=== PATIENT | male | born 1980 | race Caucasian/White ===

== ENCOUNTER 2020-02-24 23:19 | Emergency (ER) | payer OTHER, SELFPAY ==
--- NOTE | ~2020-02-24 | CT_ITS ---
EXAMINATION: CT abdomen pelvis w con DATE: 02/25/2020 00:34 INDICATION: Abdominal pain. Pancreatitis. TECHNIQUE: Computed tomography (CT) of the abdomen and pelvis was performed with 100 mL Omnipaque 350 intravenous contrast. Automated exposure control and iterative reconstruction technique were employe d. The dose-length product was 325.95 mGy-cm. COMPARISON: CT abdomen and pelvis 03/13/2019 FINDINGS: The visualized portions of the lung bases demonstrate minimal atelectasis. No pleural effus ion. The heart size is normal. No pericardial effusion. Pneumobilia is noted, likely secondary to sph incterotomy. There are changes of cholecystectomy. The spleen, pancreas, adrenal glands, and kidneys are normal. There are small bilateral inguinal hernias containing fat. There is a small umbilical her rena containing fat. There are no dilated loops of bowel. The appendix is normal. There are no patholo gically enlarged lymph nodes. There is no free intraperitoneal fluid. There is mild thoracolumbar spo ndylosis. IMPRESSION: 1. Normal pancreas. 2. Small umbilical and inguinal hernias containing fat. Reviewed, dictated and finalized at location A.
[2020-02-24 23:30] VITALS: BP 160/101; PULSE 99; RESP 14; TEMP 36.8; O2SAT 100
--- NOTE | 2020-02-24 23:39 | ED.ABDPAIN ---
HPI - Abdominal Pain General Chief Complaint: Abdominal Pain Stated Complaint: abd pain Time Seen by Provider: 02/24/20 23:39 Source: patient Mode of arrival: ambulatory Limitations: no limitations History of Present Illness HPI narrative: Patient is a 39-year-old male with a history of pancreatitis, recent small bowel obstruction hospitalized at [facility] in [place], who presents for evaluation of abdominal pain, nausea and vomiting. Patient states he had dinner of chicken and rice earlier this evening around 5 PM, couple of hours later developed some upper abdominal pain in the left upper quadrant, and associated nausea and vomiting. Patient states he has had numerous episodes of nonbloody, nonbilious emesis. He reports aching, cramping upper abdominal pain. He denies radiation of the pain to his flanks. He denies any chest pain or shortness of breath. No fever or chills. He denies abdominal distention. Patient follows with Dr. MATHUR at [facility] for gastroenterology, states he would want to be kept at this facility if he needed hospitalization and does not wish to be transferred. Related Data Allergies Allergy/AdvReac Type Severity Reaction Status Date / Time doxycycline Allergy Unknown Unknown Verified 02/24/20 23:44 metoclopramide Allergy Unknown Unknown Verified 02/24/20 23:44 sulfamethoxazole Allergy Unknown Unknown Verified 02/24/20 23:44 trimethoprim Allergy Unknown Unknown Verified 02/24/20 23:44 Review of Systems Review of Systems: Narrative: CONSTITUTIONAL: Denies fever, chills ENT: Denies rhinorrhea, congestion, sore throat, or otalgia. CARDIOVASCULAR: Denies chest pain, palpitations, or edema. RESPIRATORY: Denies cough or dyspnea. GASTROINTESTINAL: Reports abdominal pain, nausea and vomiting GENITOURINARY: Denies dysuria or hematuria. SKIN: Denies rash or itching. MUSCULOSKELETAL: Denies back pain, joint pain, or myalgia. NEUROLOGIC: Denies headache, numbness, or weakness. [facility] Past Medical History Medical History Anxiety Colitis Cyclic vomiting syndrome Depression Gastroenteritis GERD (gastroesophageal reflux disease) Hypertension IBD (inflammatory bowel disease) Kidney stones Pancreatitis Surgical History Surgical History (Updated 03/13/19 @ 15:06 by Rajani Petersen) Hx of cholecystectomy Social History Social History Smoking packs per day: 0.5 Smoking cigarettes per day: 10.0 Smoking status: Current every day smoker Tobacco type: cigarettes Alcohol intake: never Substance use type: marijuana Gender identity (if verbalized by the patient): Male Exam Narrative: Exam Narrative: GENERAL: Awake, alert, conversant HEAD: Normocephalic, atraumatic. EYES: PERRLA and EOMI. ENT: Nares clear, no rhinorrhea or epistaxis. Mucous membranes moist. NECK: Supple. CHEST: No respiratory distress, breathing even and non labored HEART: Regular rate, sinus rhythm ABDOMEN:Non distended, left upper quadrant tenderness, no rebound, no guarding, nonrigid EXTREMITIES: Normal range of motion. No edema. SKIN: Warm, dry, no rash. NEURO:No focal deficits. Alert and oriented x3 Course Vital Signs Vital signs: Vital Signs Temperature 36.8 C 02/24/20 23:30 Pulse Rate 99 02/24/20 23:30 Respiratory Rate 14 02/24/20 23:30 Blood Pressure 160/101 H 02/24/20 23:30 Pulse Oximetry 100 02/24/20 23:30 Temperature 36.8 C 02/24/20 23:30 Pulse Rate 97 02/25/20 00:56 Respiratory Rate 18 02/25/20 00:56 Blood Pressure 135/89 02/25/20 00:56 Pulse Oximetry 99 02/25/20 00:56 MDM - Abdominal Pain MDM Narrative Medical decision making narrative: Patient presented for evaluation of left upper quadrant abdominal pain after eating. At the time of assessment, ABCs are intact and vital signs are stable. Patient with left upper quadrant tenderness
[2020-02-24] MEDS: SODIUM CHLORIDE 0.9% IV 1,000 ML 999 ML IV CONT (23:47)
[2020-02-24] MEDS: ONDANSETRON INJ 4 MG/2 ML VIAL IV PUSH (23:47)
[2020-02-24] MEDS: MORPHINE SULFATE (*CRX) 4 MG/ML INJ IV PUSH (23:47)
[2020-02-24 23:50] LABS: Basophils Absolute Auto 0.1 K/mm3 (0.0-0.1); Basophils Percent Auto 0.3 % (0.2-1.2); Eosinophils Percent Auto 0.1 % (0-4.4); Hematocrit 41.8 % (42.0-52.0); Hemoglobin 14.5 g/dL (14.0-18.0); Immature Granulocyte Absolute 0.08 K/mm3 (0.00-0.031); Immature Granulocyte Percent A 0.5 % (0-0.5); Lymphocytes Absolute Auto 1.71 K/mm3 (0.9-3.2); Lymphocytes Percent Auto 10.1 % (18.3-44.2); Mean Corpuscular HGB Conc 34.7 g/dl (32-36); Mean Corpuscular Hemoglobin 31.6 pg (26-34); Mean Corpuscular Volume 91.1 fl (80-100); Mean Platelet Volume 9.8 fl (7.4-10.4); Monocytes Absolute Auto 0.8 K/mm3 (0.1-0.6); Monocytes Percent Auto 4.9 % (2.6-8.5); Neutrophils Absolute Auto 14.2 K/mm3 (1.3-6.7); Neutrophils Percent Auto 84.1 % (45.5-73.1); Platelet Count Result 332 k/mm3 (150-375); Red Blood Count 4.59 M/mm3 (4.6-6.20); Red Cell Distribution Width 13.3 % (11.5-14.5); White Blood Count 16.9 K/mm3 (4.5-10.0)
[2020-02-25 00:06] LABS: Alanine Aminotransferase 17 U/L (4-50); Albumin Level 4.5 g/dL (3.5-5.1); Alkaline Phosphatase 91 U/L (38-126); Anion Gap 9 mmol/L (8-16); Aspartate Amino Transferase 23 U/L (17-59); Bilirubin,Total 0.5 mg/dL (0.2-1.3); Blood Urea Nitrogen 5 mg/dL (9-20); Calcium 9.4 mg/dL (8.4-10.2); Carbon Dioxide 29 mmol/L (22-30); Chloride 102 mmol/L (98-107); Estimated CRCL calculation 101 ml/min; Estimated Glomerular Filt Rate > 60; Glucose 118 mg/dL (75-110); Lipase 148 U/L (23-300); Potassium 4.1 mmol/L (3.4-5.0); Sodium 140 mmol/L (137-145)
[2020-02-25] MEDS: HYDROmorphone HCL INJ (*CRX) 1 MG/ML SYR 0.5 MG IV PUSH (00:53)
[2020-02-25 00:56] VITALS: BP 135/89; PULSE 97; RESP 18; O2SAT 99
[2020-02-25 01:07] LABS: Add Urine Microscopic? YES; Appearance Urine Cloudy (Clear); Bilirubin Urine Negative (Negative); Blood Urine Negative (Negative); Color Urine Yellow (Yellow); Glucose Urine UA Negative (Negative); Ketones Urine Negative (Negative); Leukocyte Esterase Ur Negative LEU/UL (Negative); Nitrate Urine Negative (Negative); Protein Urine Negative (Negative); RBC Urine 0-2 /hpf (0-2); Specific Grav Ur 1.025 (1.001-1.035); Urobilinogen Urine Negative mg/dL (<2.0); WBC Urine 0-3 /hpf
== END 2020-02-25 01:36 | disposition home or self-care (01) ==
PROVIDERS: Emergency Medicine; Emergency Provider Emergency Medicine
DX: K52.9 Noninfective gastroenteritis and colitis, unspecified (principal); K21.9 Gastro-esophageal reflux disease without esophagitis; I10 Essential (primary) hypertension; K58.9 Irritable bowel syndrome, unspecified; Z87.442 Personal history of urinary calculi; F17.210 Nicotine dependence, cigarettes, uncomplicated
CPT/HCPCS: 36415; 74177; 80053; 81001; 83690; 85025; 96361; 96374; 96375; 99284; J1170; J2270; J2405; J7030; Q9967

== ENCOUNTER 2020-02-27 11:57 | Emergency (ER) | payer OTHER, SELFPAY ==
[2020-02-27] VITALS (11 sets, daily range): BP systolic 124–172; BP diastolic 76–125; PULSE 70–86; RESP 7–21; TEMP 36.1–36.6; O2SAT 95–100
--- NOTE | ~2020-02-27 | CT_ITS ---
EXAMINATION: CT abdomen pelvis w con DATE: 02/27/2020 13:24 INDICATION: Epigastric and left upper quadrant abdominal pain. TECHNIQUE: Computed tomography (CT) of the abdomen and pelvis was performed with 100 mL Omnipaque 350 intravenous contrast. Automated exposure control and iterative reconstruction technique were employe d. The dose-length product was 362.76 mGy-cm. COMPARISON: CT abdomen and pelvis 02/25/2020 FINDINGS: The visualized portions of the lung bases demonstrate mild atelectasis. No pleural effusion . The heart size is normal. No pericardial effusion. The liver and spleen are normal. There are peñaloza es of cholecystectomy. The pancreas, adrenal glands, and kidneys are normal. There is a right inguina l hernia containing fat. There are no dilated loops of bowel. The appendix is normal. There are no pa thologically enlarged lymph nodes. There is no free intraperitoneal fluid. There is mild lumbar spond ylosis. IMPRESSION: 1. Right inguinal hernia containing fat. Reviewed, dictated and finalized at location A.
[2020-02-27 12:19] LABS: Basophils Percent Auto 0.3 % (0.2-1.2); Eosinophils Absolute Auto 0.1 K/mm3 (0-0.3); Eosinophils Percent Auto 1.1 % (0-4.4); Hematocrit 43.2 % (42.0-52.0); Hemoglobin 14.6 g/dL (14.0-18.0); Immature Granulocyte Absolute 0.05 K/mm3 (0.00-0.031); Immature Granulocyte Percent A 0.4 % (0-0.5); Lymphocytes Absolute Auto 2.25 K/mm3 (0.9-3.2); Lymphocytes Percent Auto 18.4 % (18.3-44.2); Mean Corpuscular HGB Conc 33.8 g/dl (32-36); Mean Corpuscular Hemoglobin 31.3 pg (26-34); Mean Corpuscular Volume 92.7 fl (80-100); Mean Platelet Volume 9.9 fl (7.4-10.4); Monocytes Percent Auto 8.3 % (2.6-8.5); Neutrophils Absolute Auto 8.7 K/mm3 (1.3-6.7); Neutrophils Percent Auto 71.5 % (45.5-73.1); Platelet Count Result 319 k/mm3 (150-375); Red Blood Count 4.66 M/mm3 (4.6-6.20); Red Cell Distribution Width 13.4 % (11.5-14.5); White Blood Count 12.2 K/mm3 (4.5-10.0)
--- NOTE | 2020-02-27 12:22 | ED.ABDPAIN ---
HPI - Abdominal Pain General Chief Complaint: Abdominal Pain Stated Complaint: abd pain, vomiting Time Seen by Provider: 02/27/20 12:03 History of Present Illness HPI narrative: Patient is a 39-year-old male who presents to the ER with abdominal pain. Was having similar discomfort 2 days ago, yesterday was feeling better and ate some pizza. Spring woke up with upper abdominal pain without radiation. Sharp in nature. Associated with one episode diarrhea and 5 episodes of vomiting. Patient has history of Crohn's. She takes omeprazole. No fevers or chills or sweats. No alleviating factors. Related Data Home Medications Medication Instructions Recorded Confirmed omeprazole 40 mg PO DAILY 02/27/20 Allergies Allergy/AdvReac Type Severity Reaction Status Date / Time doxycycline Allergy Unknown Unknown Verified 02/24/20 23:44 metoclopramide Allergy Unknown Unknown Verified 02/24/20 23:44 sulfamethoxazole Allergy Unknown Unknown Verified 02/24/20 23:44 trimethoprim Allergy Unknown Unknown Verified 02/24/20 23:44 Review of Systems Review of Systems: All systems reviewed & are unremarkable except as noted in HPI and below Constitutional: Constitutional: Denies chills, Denies fever(s) and Denies weakness ENT: Denies nasal congestion and Denies sore throat Cardiovascular: Cardiovascular: Denies chest pain and Denies radiating jaw, neck or arm pain Respiratory: Respiratory: Denies cough, Denies dyspnea and Denies wheezing Gastrointestinal: Gastrointestinal: Reports abdominal pain, Reports diarrhea, Reports nausea and Reports vomiting PMFSH Past Medical History Medical History Anxiety Colitis Cyclic vomiting syndrome Depression Gastroenteritis GERD (gastroesophageal reflux disease) Hypertension IBD (inflammatory bowel disease) Kidney stones Pancreatitis Surgical History Surgical History (Updated 03/13/19 @ 15:06 by Rajani Petersen) Hx of cholecystectomy Social History Social History Smoking packs per day: 0.5 Smoking cigarettes per day: 10.0 Smoking status: Current every day smoker Tobacco type: cigarettes Alcohol intake: never Substance use type: marijuana Gender identity (if verbalized by the patient): Male Exam Narrative: Exam Narrative: GENERAL: Uncomfortable-appearing, well-nourished, and in no acute distress. HEAD: Normocephalic, atraumatic. CHEST: Clear to auscultation. No respiratory distress. HEART: Regular rate and rhythm. Normal peripheral pulses. ABDOMEN: Soft, moderate tenderness to the left upper quadrant and epigastrium, nondistended. EXTREMITIES: Normal range of motion. No edema. SKIN: Warm, dry, no rash. NEURO: Alert and oriented x3. PSYCH: Normal mood and affect. Course Course Emergency Course: Patient informed results. Pain nausea improving with medications. Discharge home. Vital Signs Vital signs: Vital Signs Temperature 97.0 F L 02/27/20 12:05 Pulse Rate 86 02/27/20 12:05 Respiratory Rate 16 02/27/20 12:05 Blood Pressure 150/76 H 02/27/20 12:05 Pulse Oximetry 100 02/27/20 12:05 Temperature 97.0 F L 02/27/20 12:05 Pulse Rate 78 02/27/20 12:48 Respiratory Rate 11 L 02/27/20 12:48 Blood Pressure 172/115 H 02/27/20 12:48 Pulse Oximetry 98 02/27/20 12:48 MDM - Abdominal Pain Lab Data Result diagrams: 02/27/20 12:11 02/27/20 12:11 Labs: Lab Results 02/27/20 02/27/20 02/27/20 Range/Units 12:11 12:11 12:45 WBC 12.2 H (4.5-10.0) K/mm3 RBC 4.66 (4.6-6.20) M/mm3 Hgb 14.6 (14.0-18.0) g/dL Hct 43.2 (42.0-52.0) % MCV 92.7 (80-100) fl MCH 31.3 (26-34) pg MCHC 33.8 (32-36) g/dl RDW 13.4 (11.5-14.5) % Plt Count 319 (150-375) k/mm3 MPV 9.9 (7.4-10.4) fl Immature Gran % (Auto) 0.4 (0-0.5) % Neut % (Auto) 71.5 (45.5-73.1) % L
[2020-02-27] MEDS: MORPHINE SULFATE (*CRX) 4 MG/ML INJ IV PUSH (12:23)
[2020-02-27] MEDS: SODIUM CHLORIDE 0.9% IV 1,000 ML 999 ML IV CONT (12:23)
[2020-02-27] MEDS: ONDANSETRON INJ 4 MG/2 ML VIAL IV PUSH (12:23)
--- NOTE | 2020-02-27 12:23 | PC.NURSE ---
pt informed of need for ua, refusing straight cath, unable to pee at this time, states i feel really dehydrated i will try after i get the iv fluids in me.
[2020-02-27 12:32] LABS: Alanine Aminotransferase 17 U/L (4-50); Albumin Level 4.4 g/dL (3.5-5.1); Alkaline Phosphatase 82 U/L (38-126); Anion Gap 8 mmol/L (8-16); Aspartate Amino Transferase 21 U/L (17-59); Bilirubin,Total 0.7 mg/dL (0.2-1.3); Blood Urea Nitrogen 11 mg/dL (9-20); Calcium 9.7 mg/dL (8.4-10.2); Carbon Dioxide 30 mmol/L (22-30); Chloride 102 mmol/L (98-107); Estimated CRCL calculation 113 ml/min; Estimated Glomerular Filt Rate > 60; Glucose 147 mg/dL (75-110); Lipase 180 U/L (23-300); Potassium 4.1 mmol/L (3.4-5.0); Sodium 140 mmol/L (137-145)
[2020-02-27 13:07] LABS: Add Urine Microscopic? YES; Appearance Urine Turbid (Clear); Bacteria Urine Trace /hpf; Bilirubin Urine Negative (Negative); Blood Urine Negative (Negative); Color Urine Yellow (Yellow); Glucose Urine UA Negative (Negative); Ketones Urine Negative (Negative); Leukocyte Esterase Ur Negative LEU/UL (Negative); Mucus Urine Rare /lpf; Nitrate Urine Negative (Negative); Protein Urine Negative (Negative); RBC Urine 0-2 /hpf (0-2); Specific Grav Ur 1.013 (1.001-1.035); Urobilinogen Urine Negative mg/dL (<2.0)
[2020-02-27] MEDS: HYDROmorphone HCL INJ (*CRX) 1 MG/ML SYR IV PUSH (14:46)
== END 2020-02-27 15:57 | disposition home or self-care (01) ==
PROVIDERS: Emergency Provider Emergency Medicine
DX: K21.9 Gastro-esophageal reflux disease without esophagitis (principal); I10 Essential (primary) hypertension; K58.9 Irritable bowel syndrome, unspecified; Z87.442 Personal history of urinary calculi
CPT/HCPCS: 36415; 74177; 80053; 81001; 83690; 85025; 96361; 96374; 96375; 99284; J1170; J2270; J2405; J7030; Q9967

== ENCOUNTER 2020-02-29 16:42 | Emergency (ER) | payer OTHER, SELFPAY ==
[2020-02-29] VITALS (11 sets, daily range): BP systolic 117–167; BP diastolic 68–122; PULSE 68–91; RESP 12–20; TEMP 36.7; O2SAT 84–100
[2020-02-29 17:08] LABS: Basophils Absolute Auto 0.1 K/mm3 (0.0-0.1); Basophils Percent Auto 0.5 % (0.2-1.2); Eosinophils Absolute Auto 0.1 K/mm3 (0-0.3); Eosinophils Percent Auto 1.1 % (0-4.4); Hematocrit 42.2 % (42.0-52.0); Hemoglobin 14.3 g/dL (14.0-18.0); Immature Granulocyte Absolute 0.05 K/mm3 (0.00-0.031); Immature Granulocyte Percent A 0.4 % (0-0.5); Lymphocytes Absolute Auto 2.17 K/mm3 (0.9-3.2); Lymphocytes Percent Auto 18.7 % (18.3-44.2); Mean Corpuscular HGB Conc 33.9 g/dl (32-36); Mean Corpuscular Hemoglobin 31.4 pg (26-34); Mean Corpuscular Volume 92.7 fl (80-100); Mean Platelet Volume 9.7 fl (7.4-10.4); Monocytes Percent Auto 8.5 % (2.6-8.5); Neutrophils Absolute Auto 8.2 K/mm3 (1.3-6.7); Neutrophils Percent Auto 70.8 % (45.5-73.1); Platelet Count Result 305 k/mm3 (150-375); Red Blood Count 4.55 M/mm3 (4.6-6.20); Red Cell Distribution Width 13.3 % (11.5-14.5); White Blood Count 11.6 K/mm3 (4.5-10.0)
[2020-02-29 17:19] LABS: Alanine Aminotransferase 15 U/L (4-50); Albumin Level 4.3 g/dL (3.5-5.1); Alkaline Phosphatase 91 U/L (38-126); Anion Gap 8 mmol/L (8-16); Aspartate Amino Transferase 21 U/L (17-59); Bilirubin,Total 0.4 mg/dL (0.2-1.3); Blood Urea Nitrogen 9 mg/dL (9-20); Calcium 9.2 mg/dL (8.4-10.2); Carbon Dioxide 28 mmol/L (22-30); Chloride 103 mmol/L (98-107); Estimated CRCL calculation 113 ml/min; Estimated Glomerular Filt Rate > 60; Glucose 104 mg/dL (75-110); Lipase 107 U/L (23-300); Sodium 139 mmol/L (137-145)
--- NOTE | 2020-02-29 17:30 | PC.NURSE ---
patient brought back to ED room 5 with c/o N/V that started just today. patient has been here in waiting area due to no open beds. see triage notes. patient states he is seen frequently with same symptoms. assessments documented. alert. oriented. on BP and O2 monitors. call light in reach. notified again that we do need a urine specimen.
--- NOTE | 2020-02-29 17:35 | PC.NURSE ---
SL inserted and labs drawn. labs sent.
--- NOTE | 2020-02-29 18:12 | ED.ABDPAIN ---
HPI - Abdominal Pain General Chief Complaint: Abdominal Pain Stated Complaint: ABD PAIN AND VOMITING Time Seen by Provider: 02/29/20 17:48 Source: patient Limitations: no limitations History of Present Illness HPI narrative: Patient 39 years old white male known to us because of frequent ED visit for the same complaint of abdominal pain, nausea and vomiting. Patient complaining of left upper abdominal pain 2 hours prior to arrival associated with nausea and frequent vomiting. Patient denies any fever, chills, chest pain, shortness of breath, headache, back pain, sore throat. Patient denies exposure to anybody with COVID-19. Patient was seen his family physician today for regular checkup and everything was okay. History of GERD and omeprazole. Patient denies any stress Patient smokes, denies any drinking or drug use. Related Data Home Medications Medication Instructions Recorded Confirmed omeprazole 40 mg PO DAILY 02/27/20 Allergies Allergy/AdvReac Type Severity Reaction Status Date / Time doxycycline Allergy Unknown Unknown Verified 02/24/20 23:44 metoclopramide Allergy Unknown Unknown Verified 02/24/20 23:44 sulfamethoxazole Allergy Unknown Unknown Verified 02/24/20 23:44 trimethoprim Allergy Unknown Unknown Verified 02/24/20 23:44 Review of Systems Review of Systems: Narrative: CONSTITUTIONAL: Denies fever, chills, or sweats. EYES: Denies visual changes, redness, or discharge. ENT: Denies rhinorrhea, congestion, sore throat, or otalgia. CARDIOVASCULAR: Denies chest pain, palpitations, or edema. RESPIRATORY: Denies cough or dyspnea. GASTROINTESTINAL: Abdominal pain with nausea and vomiting GENITOURINARY: Denies dysuria or hematuria. SKIN: Denies rash or itching. MUSCULOSKELETAL: Denies back pain, joint pain, or myalgia. NEUROLOGIC: Denies headache, numbness, or weakness. PSYCHIATRIC: Denies anxiety or depression. [facility] Past Medical History Medical History Anxiety Colitis Cyclic vomiting syndrome Depression Gastroenteritis GERD (gastroesophageal reflux disease) Hypertension IBD (inflammatory bowel disease) Kidney stones Pancreatitis Surgical History Surgical History Hx of cholecystectomy Social History Social History Smoking packs per day: 0.5 Smoking cigarettes per day: 10.0 Smoking status: Current every day smoker Tobacco type: cigarettes Alcohol intake: never Substance use type: marijuana Gender identity (if verbalized by the patient): Male Exam Narrative: Exam Narrative: General appearance: Well-developed, well-nourished Skin: Normal color Head: Normocephalic, nontraumatic Eyes: Clear conjunctiva ENT: Oropharynx normal, ears normal, nose normal Neck: Supple, nontender Chest and respiratory: Airway patent, no respiratory distress, no accessory muscle use Heart: Regular rate/rhythm Abdomen: Soft, diffuse tenderness upper abdomen mainly left upper quadrant and epigastric area, no organomegaly, quiet bowel sounds Vascular: Normal peripheral pulses, normal capillary refill. 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 Or abdominal pain. Patient is ready to go home. Date: 02/29/20 Time: 21:16 Vital Signs Vital signs: Vital Signs Temperature 36.7 C 02/29/20 16:53 Pulse Rate 91 02/29/20 16:53 Respiratory Rate 20 02/09
[2020-02-29 18:18] LABS: Add Urine Microscopic? YES; Amorphous Sediment Urine Few; Appearance Urine Cloudy (Clear); Bilirubin Urine Negative (Negative); Blood Urine Negative (Negative); Color Urine Yellow (Yellow); Glucose Urine UA Negative (Negative); Ketones Urine Negative (Negative); Leukocyte Esterase Ur Negative LEU/UL (Negative); Mucus Urine Rare /lpf; Nitrate Urine Negative (Negative); Protein Urine Negative (Negative); RBC Urine 0-2 /hpf (0-2); Specific Grav Ur 1.015 (1.001-1.035); Urobilinogen Urine Negative mg/dL (<2.0); WBC Urine 0-3 /hpf
[2020-02-29] MEDS: SODIUM CHLORIDE 0.9% IV 1,000 ML 999 ML IV CONT (18:18)
[2020-02-29] MEDS: HYDROmorphone HCL INJ (*CRX) 1 MG/ML SYR 0.5 MG IV PUSH (18:19)
[2020-02-29] MEDS: ONDANSETRON INJ 4 MG/2 ML VIAL IV PUSH (18:20)
--- NOTE | 2020-02-29 18:31 | PC.NURSE ---
patient medicated. resting on stretcher. all labs resulted. on BP and O2 monitors.
== END 2020-02-29 21:00 | disposition home or self-care (01) ==
PROVIDERS: Emergency Medicine; Emergency Provider Emergency Medicine
DX: R10.12 Left upper quadrant pain (principal); R11.2 Nausea with vomiting, unspecified; F17.210 Nicotine dependence, cigarettes, uncomplicated; K21.9 Gastro-esophageal reflux disease without esophagitis
CPT/HCPCS: 36415; 80053; 81001; 83690; 85025; 96361; 96374; 96375; 99284; J1170; J2405; J7030

== ENCOUNTER 2020-03-02 08:36 | Emergency (ER) | payer OTHER, SELFPAY ==
[2020-03-02 08:45] VITALS: BP 172/113; PULSE 94; RESP 16; TEMP 36.4; O2SAT 97
[2020-03-02] MEDS: DICYCLOMINE HCL INJ 20 MG/2 ML VIAL IM (09:11)
[2020-03-02] MEDS: PROMETHAZINE HCL 25 MG/ML AMPUL IM (09:11)
--- NOTE | 2020-03-02 09:48 | ED.GENADULT ---
HPI - General Adult General Chief complaint: Abdominal Pain Stated complaint: abd pain, vomiting Time Seen by Provider: 03/02/20 08:48 History of Present Illness HPI narrative: Patient is a 39-year-old male who presents ER with left upper quadrant abdominal pain. Patient has history of chronic abdominal pain and sees a GI physician at [facility]. He has been seen in the ER twice in the last week. Normal lab work and normal CT scan. He typically likes to receive Dilaudid for his pain. Patient reports he ate some cereal and a banana this morning developed sudden onset pain and some vomiting. No fevers or chills or sweats. No additional changes in his symptoms. Reports he is following up with his GI doctor next week. Related Data Home Medications Medication Instructions Recorded Confirmed omeprazole 40 mg PO DAILY 02/27/20 Allergies Allergy/AdvReac Type Severity Reaction Status Date / Time doxycycline Allergy Unknown Unknown Verified 03/02/20 09:31 metoclopramide Allergy Unknown Unknown Verified 03/02/20 09:31 sulfamethoxazole Allergy Unknown Unknown Verified 03/02/20 09:31 trimethoprim Allergy Unknown Unknown Verified 03/02/20 09:31 Review of Systems Review of Systems: All systems reviewed & are unremarkable except as noted in HPI and below Constitutional: Constitutional: Denies chills and Denies fever(s) Cardiovascular: Cardiovascular: Denies chest pain Respiratory: Respiratory: Denies cough and Denies dyspnea Gastrointestinal: Gastrointestinal: Reports abdominal pain, Denies diarrhea, Reports nausea and Reports vomiting PMFSH Past Medical History Medical History Anxiety Colitis Cyclic vomiting syndrome Depression Gastroenteritis GERD (gastroesophageal reflux disease) Hypertension IBD (inflammatory bowel disease) Kidney stones Pancreatitis Surgical History Surgical History Hx of cholecystectomy Social History Social History Smoking packs per day: 0.5 Smoking cigarettes per day: 10.0 Smoking status: Current every day smoker Tobacco type: cigarettes Alcohol intake: never Substance use type: marijuana Gender identity (if verbalized by the patient): Male Exam Narrative: Exam Narrative: GENERAL: Well-appearing, well-nourished, and in no acute distress. HEAD: Normocephalic, atraumatic. CHEST: Clear to auscultation. No respiratory distress. HEART: Regular rate and rhythm. Normal peripheral pulses. ABDOMEN: Soft, mild tenderness in left upper quadrant without guarding, nondistended. EXTREMITIES: Normal range of motion. No edema. SKIN: Warm, dry, no rash. NEURO: Alert and oriented x3. PSYCH: Normal mood and affect. Course Course Emergency Course: Patient given Bentyl and Phenergan IM. Is not felt patient requires lab evaluation as he has had it twice this week without change. This is the same pain he has had chronically. No additional imaging required either. Suggest patient follow-up with his GI doctor. I also have a strong suspicion that patient is exhibiting drug-seeking behavior as he has specific request for narcotic pain treatment. Vital Signs Vital signs: Vital Signs Temperature 97.5 F L 03/02/20 08:45 Pulse Rate 94 03/02/20 08:45 Respiratory Rate 16 03/02/20 08:45 Blood Pressure 172/113 H 03/02/20 08:45 Pulse Oximetry 97 03/02/20 08:45 Temperature 97.5 F L 03/02/20 08:45 Pulse Rate 94 03/02/20 08:45 Respiratory Rate 16 03/02/20 08:45 Blood Pressure 172/113 H 03/02/20 08:45 Pulse Oximetry 97 03/02/20 08:45 Medical Decision Making Vital Signs Vital Signs: Vital Signs Temperature 97.5 F L 03/02/20 08:45 Pulse Rate 94 03/02/20 08:45 Respiratory Rate 16 03/02/20 08:45 Blood Pressure 172/113 H 03/02/20 08:45 Pulse Oximetry 97 03/02/20 08:45 Temperat
[2020-03-02 10:39] VITALS: BP 96/60; PULSE 80; RESP 18; O2SAT 99
== END 2020-03-02 10:40 | disposition home or self-care (01) ==
PROVIDERS: Emergency Provider Emergency Medicine
DX: R10.12 Left upper quadrant pain (principal); G89.29 Other chronic pain; Z76.5 Malingerer [conscious simulation]; K21.9 Gastro-esophageal reflux disease without esophagitis; I10 Essential (primary) hypertension; K58.9 Irritable bowel syndrome, unspecified; Z87.442 Personal history of urinary calculi; F17.210 Nicotine dependence, cigarettes, uncomplicated
CPT/HCPCS: 96372; 99284; J0500; J2550

== ENCOUNTER 2020-03-14 14:31 | Emergency (ER) | payer OTHER, SELFPAY ==
--- NOTE | ~2020-03-14 | CT_ITS ---
EXAMINATION: CT abdomen pelvis w con DATE: 03/14/2020 16:43 INDICATION: Abdominal pain. TECHNIQUE: Computed tomography (CT) of the abdomen and pelvis was performed with 100 mL Omnipaque 350 intravenous contrast. Automated exposure control and iterative reconstruction technique were employe d. The dose-length product was 315.15 mGy-cm. COMPARISON: CT abdomen and pelvis 02/27/2020 FINDINGS: The visualized portions of the lung bases are clear without pneumonia or pleural effusion. The heart size is normal. No pericardial effusion. The liver and spleen are normal. There are changes of cholecystectomy. The pancreas, adrenal glands, and kidneys are normal. There are no dilated loops of bowel. The appendix is normal. There is a small right inguinal hernia containing fat. There are n o pathologically enlarged lymph nodes. There is no free intraperitoneal fluid. IMPRESSION: 1. Small right inguinal hernia containing fat. Reviewed, dictated and finalized at location A. [employer]
--- NOTE | 2020-03-14 15:11 | ED.ABDPAIN ---
HPI - Abdominal Pain General Chief Complaint: Abdominal Pain Stated Complaint: abd pain/vomiting Time Seen by Provider: 03/14/20 14:43 Source: RN notes reviewed History of Present Illness HPI narrative: Patient presents emergency department from home for abdominal pain. Patient states pain began approximately 2 hours ago. The pain is located across the upper abdomen and does not radiate described as sharp and stabbing in nature. States the pain began after he had a bowel movement. Associate with nausea and vomiting. Denies any fevers or chills chest pain shortness of breath diarrhea or any other symptoms Related Data Home Medications Medication Instructions Recorded Confirmed omeprazole 40 mg PO DAILY 02/27/20 Allergies Allergy/AdvReac Type Severity Reaction Status Date / Time doxycycline Allergy Unknown Unknown Verified 03/14/20 15:23 metoclopramide Allergy Unknown Unknown Verified 03/14/20 15:23 sulfamethoxazole Allergy Unknown Unknown Verified 03/14/20 15:23 trimethoprim Allergy Unknown Unknown Verified 03/14/20 15:23 Review of Systems Review of Systems: Narrative: Gen.: Denies fevers or chills ENT: Denies congestion Respiratory: Denies shortness of breath or cough CV: Denies chest pain or palpitations GI: See HPI denies burning, urgency, frequency or hematuria Musculoskeletal: Denies back pain or muscle pain Neuro: Denies numbness, tingling, weakness or focal weakness Skin: Denies rash Except as documented, all other systems reviewed and negative PMFSH Past Medical History Medical History Anxiety Colitis Cyclic vomiting syndrome Depression Gastroenteritis GERD (gastroesophageal reflux disease) Hypertension IBD (inflammatory bowel disease) Kidney stones Pancreatitis Surgical History Surgical History Hx of cholecystectomy Social History Social History Smoking packs per day: 0.5 Smoking cigarettes per day: 10.0 Smoking status: Current every day smoker Tobacco type: cigarettes Alcohol intake: never Substance use type: marijuana Gender identity (if verbalized by the patient): Male Exam Narrative: Exam Narrative: APPEARANCE: No acute distress, nontoxic, resting in bed HEENT: Normocephalic, atraumatic, OMM RESPIRATORY: No respiratory distress, clear to auscultation bilaterally with no rhonchi wheezing or rales CARDIOVASCULAR: RRR s murmur ABDOMINAL: Soft, nondistended, tender palpation epigastric and right upper quadrant left upper quadrant, no tenderness right lower quadrant left lower quadrant no rebound or guarding MUSCULOSKELETAl: Moves all extremities. No clubbing, cyanosis or edema. NEURO: Awake and alert. Following commands, speech normal, no focal deficits SKIN:: Warm, dry. Normal Color PSYCHIATRIC: Normal affect/mood Course Course Emergency Course: Patient states he normally receives Dilaudid for his abdominal pain Reviewed old records. Patient has history of similar presentations emergency department for a past history of cyclic vomiting Patient states that they are feeling much better at this time. States abdominal pain has resolved. Repeat abdominal exam shows the patient's abdomen to be soft and nontender. Discussed with patient results of workup and diagnosis. Discussed need for follow-up with primary care physician, reasons to return to the emergency department in proper use of medication. Patient understands and agrees to current treatment plan. Patient states he is followed by Dr. Woodard for his cyclic vomiting syndrome. States he has a Zofran at home Vital Signs Vital signs: Vital Signs Temperature 97.5 F L 03/14/20 16:08 Pulse Rate 72 03/14/20 16:08 Respiratory Rate 14 03/14/20 16:08 Blood Pressure 142/92 H 03/14/20 16:08 Pulse Oximetry 97 03/14/20 16:08 Temperature 97.5 F L 03/14
[2020-03-14] MEDS: ONDANSETRON INJ 4 MG/2 ML VIAL IV PUSH (15:24)
[2020-03-14] MEDS: SODIUM CHLORIDE 0.9% IV 1,000 ML 999 ML IV CONT ×2 (15:24→16:25)
--- NOTE | 2020-03-14 15:26 | PC.NURSE ---
Pt unable to provide urine sample at this time, fluids infusing.
[2020-03-14 15:33] LABS: Hemoglobin 14.3 g/dL (14.0-18.0); Mean Corpuscular HGB Conc 34.9 g/dl (32-36); Mean Corpuscular Hemoglobin 31.3 pg (26-34); Mean Corpuscular Volume 89.7 fl (80-100); Mean Platelet Volume 9.8 fl (7.4-10.4); Platelet Count Result 292 k/mm3 (150-375); Red Blood Count 4.57 M/mm3 (4.6-6.20); White Blood Count 23.7 K/mm3 (4.5-10.0)
[2020-03-14 15:45] LABS: Alanine Aminotransferase 16 U/L (4-50); Albumin Level 4.5 g/dL (3.5-5.1); Alkaline Phosphatase 106 U/L (38-126); Anion Gap 11 mmol/L (8-16); Aspartate Amino Transferase 27 U/L (17-59); Bilirubin,Total 0.5 mg/dL (0.2-1.3); Blood Urea Nitrogen 11 mg/dL (9-20); Calcium 9.6 mg/dL (8.4-10.2); Carbon Dioxide 23 mmol/L (22-30); Chloride 106 mmol/L (98-107); Estimated Glomerular Filt Rate > 60; Glucose 120 mg/dL (75-110); Lipase 370 U/L (23-300); Potassium 3.7 mmol/L (3.4-5.0); Sodium 140 mmol/L (137-145)
[2020-03-14 15:56] LABS: Band Neutrophils Percent 11 % (0-6); Lymphocytes Absolute Manual 2.84 K/mm3 (1.1-4.5); Monocytes Absolute Manual 1.42 K/mm3 (0.1-0.90); Monocytes Percent Manual 6 % (3-9); Neutrophils Absolute Manual 19.43 K/mm3 (1.3-6.7); Neutrophils Percent Manual 71 % (46-73); Total Cells Counted 100
[2020-03-14 15:57] LABS: Platelet Estimate Adequate (Adequate)
[2020-03-14 16:08] VITALS: BP 142/92; PULSE 72; RESP 14; TEMP 36.4; O2SAT 97
[2020-03-14] MEDS: HYDROmorphone HCL INJ (*CRX) 1 MG/ML SYR 0.5 MG IV PUSH ×2 (16:25→17:50)
[2020-03-14 16:26] VITALS: BP 144/90; PULSE 78; RESP 17; O2SAT 98
[2020-03-14 17:22] LABS: Add Urine Microscopic? YES; Amorphous Sediment Urine Moderate; Appearance Urine Cloudy (Clear); Bacteria Urine Trace /hpf; Bilirubin Urine Negative (Negative); Blood Urine Negative (Negative); Color Urine Yellow (Yellow); Glucose Urine UA Negative (Negative); Ketones Urine 1+ mg/dL (Negative); Leukocyte Esterase Ur Negative LEU/UL (Negative); Mucus Urine Rare /lpf; Nitrate Urine Negative (Negative); Protein Urine 1+ mg/dL (Negative); RBC Urine 0-2 /hpf (0-2); Specific Grav Ur 1.023 (1.001-1.035); Squamous Epithelial Cell Urine Rare /hpf (Few); Urobilinogen Urine Negative mg/dL (<2.0)
[2020-03-14 17:54] VITALS: BP 115/75; PULSE 79; RESP 14; O2SAT 99
[2020-03-14 18:47] VITALS: BP 118/80; PULSE 70; RESP 14; O2SAT 97
== END 2020-03-14 18:49 | disposition home or self-care (01) ==
PROVIDERS: Emergency Provider Emergency Medicine; PCP Family Medicine
DX: R10.10 Upper abdominal pain, unspecified (principal); R11.2 Nausea with vomiting, unspecified; K21.9 Gastro-esophageal reflux disease without esophagitis; I10 Essential (primary) hypertension; K58.9 Irritable bowel syndrome, unspecified; Z87.442 Personal history of urinary calculi
CPT/HCPCS: 36415; 74177; 80053; 81001; 83690; 85025; 96361; 96365; 96375; 96376; 99284; J0131; J1170; J2405; J7030; Q9967

== ENCOUNTER 2020-03-22 12:34 | Emergency (ER) | payer OTHER, SELFPAY ==
--- NOTE | ~2020-03-22 | CT_ITS ---
EXAMINATION: CT abdomen pelvis w con DATE: 03/22/2020 15:22 INDICATION: Abdominal pain. TECHNIQUE: Computed tomography (CT) of the abdomen and pelvis was performed with 100 mL Omnipaque 350 intravenous contrast. Automated exposure control and iterative reconstruction technique were employe d. The dose-length product was 282.42 mGy-cm. COMPARISON: CT abdomen and pelvis 03/14/20 FINDINGS: The visualized portions of the lung bases are clear without pneumonia or pleural effusion. The heart size is normal. No pericardial effusion. The liver is normal. There are changes of cholecys tectomy. The pancreas, spleen, adrenal glands, and kidneys are normal. There are no dilated loops of bowel. The appendix is normal. There is a small right inguinal hernia containing fat. There are no pa thologically enlarged lymph nodes. There is no free intraperitoneal fluid. There is a benign bone isl and in right ischium. IMPRESSION: 1. Small right inguinal hernia containing fat. Reviewed, dictated and finalized at location B. ING DEPARTMENT END FINDER
[2020-03-22 12:40] VITALS: BP 165/120; PULSE 82; RESP 16; TEMP 36.1; O2SAT 98
[2020-03-22 14:11] VITALS: BP 162/83; PULSE 83; RESP 17; O2SAT 99
[2020-03-22] MEDS: FAMOTIDINE 20 MG/2 ML VIAL IV PUSH (14:21)
[2020-03-22] MEDS: MORPHINE SULFATE (*CRX) 4 MG/ML INJ IV PUSH (14:22)
[2020-03-22] MEDS: ONDANSETRON INJ 4 MG/2 ML VIAL IV PUSH ×2 (14:22→17:42)
[2020-03-22] MEDS: SODIUM CHLORIDE 0.9% IV 1,000 ML 999 ML IV CONT (14:23)
[2020-03-22 14:41] LABS: Basophils Absolute Auto 0.1 K/mm3 (0.0-0.1); Basophils Percent Auto 0.4 % (0.2-1.2); Eosinophils Absolute Auto 0.1 K/mm3 (0-0.3); Eosinophils Percent Auto 0.4 % (0-4.4); Hematocrit 41.6 % (42.0-52.0); Hemoglobin 14.4 g/dL (14.0-18.0); Immature Granulocyte Absolute 0.06 K/mm3 (0.00-0.031); Immature Granulocyte Percent A 0.4 % (0-0.5); Lymphocytes Absolute Auto 1.07 K/mm3 (0.9-3.2); Lymphocytes Percent Auto 7.2 % (18.3-44.2); Mean Corpuscular HGB Conc 34.6 g/dl (32-36); Mean Corpuscular Hemoglobin 31.6 pg (26-34); Mean Corpuscular Volume 91.2 fl (80-100); Mean Platelet Volume 10.2 fl (7.4-10.4); Monocytes Absolute Auto 1.2 K/mm3 (0.1-0.6); Monocytes Percent Auto 7.9 % (2.6-8.5); Neutrophils Absolute Auto 12.5 K/mm3 (1.3-6.7); Neutrophils Percent Auto 83.7 % (45.5-73.1); Platelet Count Result 290 k/mm3 (150-375); Red Blood Count 4.56 M/mm3 (4.6-6.20); Red Cell Distribution Width 13.1 % (11.5-14.5); White Blood Count 14.9 K/mm3 (4.5-10.0)
[2020-03-22 14:52] LABS: Alanine Aminotransferase 23 U/L (4-50); Albumin Level 4.4 g/dL (3.5-5.1); Alkaline Phosphatase 96 U/L (38-126); Anion Gap 9 mmol/L (8-16); Aspartate Amino Transferase 29 U/L (17-59); Bilirubin,Total 0.6 mg/dL (0.2-1.3); Blood Urea Nitrogen 12 mg/dL (9-20); Calcium 9.4 mg/dL (8.4-10.2); Carbon Dioxide 27 mmol/L (22-30); Chloride 104 mmol/L (98-107); Estimated CRCL calculation 113 ml/min; Estimated Glomerular Filt Rate > 60; Glucose 129 mg/dL (75-110); Lipase 102 U/L (23-300); Potassium 4.2 mmol/L (3.4-5.0); Sodium 140 mmol/L (137-145)
[2020-03-22 14:53] LABS: Lactic Acid Reflex 1.2 mmol/L (0.7-2.1)
[2020-03-22 15:03] LABS: Add Urine Microscopic? YES; Appearance Urine Cloudy (Clear); Bacteria Urine Trace /hpf; Bilirubin Urine Negative (Negative); Blood Urine Negative (Negative); Color Urine Yellow (Yellow); Glucose Urine UA Negative (Negative); Ketones Urine 1+ mg/dL (Negative); Leukocyte Esterase Ur Negative LEU/UL (Negative); Nitrate Urine Negative (Negative); Protein Urine 1+ mg/dL (Negative); RBC Urine 0-2 /hpf (0-2); Specific Grav Ur 1.015 (1.001-1.035); Urobilinogen Urine Negative mg/dL (<2.0); WBC Urine 0-3 /hpf
[2020-03-22 16:18] VITALS: BP 118/84; PULSE 91; RESP 15; O2SAT 100
--- NOTE | 2020-03-22 16:20 | ED.ABDPAIN ---
HPI - Abdominal Pain General Chief Complaint: Abdominal Pain Stated Complaint: abd pain, n/v Time Seen by Provider: 03/22/20 13:59 History of Present Illness HPI narrative: Patrica patient a 39-year-old gentleman who presents emerge department with chief complaint of abdominal pain. Patient reports he has history of pancreatitis and has history of bowel obstructions in the past. Patient states that over the last several days has had worsening pain states that today he was concerned that he may have an acute episode of pancreatitis or has a small bowel obstruction. Patient reports is worsened whenever he tries to take p.o. intake. Related Data Home Medications Medication Instructions Recorded Confirmed omeprazole 40 mg PO DAILY 02/27/20 Allergies Allergy/AdvReac Type Severity Reaction Status Date / Time doxycycline Allergy Unknown Unknown Verified 03/14/20 15:23 metoclopramide Allergy Unknown Unknown Verified 03/14/20 15:23 sulfamethoxazole Allergy Unknown Unknown Verified 03/14/20 15:23 trimethoprim Allergy Unknown Unknown Verified 03/14/20 15:23 Review of Systems Review of Systems: Narrative: CONSTITUTIONAL: Denies fever, chills, or sweats. EYES: Denies visual changes, redness, or discharge. ENT: Denies rhinorrhea, congestion, sore throat, or otalgia. CARDIOVASCULAR: Denies chest pain, palpitations, or edema. RESPIRATORY: Denies cough or dyspnea. GASTROINTESTINAL: Denies abdominal pain, nausea, vomiting, or diarrhea. GENITOURINARY: Denies dysuria or hematuria. SKIN: Denies rash or itching. MUSCULOSKELETAL: Denies back pain, joint pain, or myalgia. NEUROLOGIC: Denies headache, numbness, or weakness. PSYCHIATRIC: Denies anxiety or depression. All systems reviewed & are unremarkable except as noted in HPI and below PMFSH Past Medical History Medical History Anxiety Colitis Cyclic vomiting syndrome Depression Gastroenteritis GERD (gastroesophageal reflux disease) Hypertension IBD (inflammatory bowel disease) Kidney stones Pancreatitis Surgical History Surgical History Hx of cholecystectomy Social History Social History Smoking packs per day: 0.5 Smoking cigarettes per day: 10.0 Smoking status: Current every day smoker Tobacco type: cigarettes Alcohol intake: never Substance use type: marijuana Gender identity (if verbalized by the patient): Male Exam Narrative: Exam Narrative: GENERAL: Well-appearing, well-nourished, and in no acute distress. HEAD: Normocephalic, atraumatic. EYES: PERRLA and EOMI. ENT: Nares clear, no rhinorrhea or epistaxis. Mucous membranes moist. NECK: Supple. CHEST: Clear to auscultation. No respiratory distress. HEART: Regular rate and rhythm. No murmur heard. Normal peripheral pulses. ABDOMEN: Soft, diffuse mild tenderness, nondistended, normal active bowel sounds. EXTREMITIES: Normal range of motion. No edema. SKIN: Warm, dry, no rash. NEURO: No focal deficits. Alert and oriented x3. PSYCH: Normal mood and affect. Course Course Emergency Course: Patient received 1 dose of IV morphine his laboratory studies came back within normal limits CT scan of the abdomen pelvis showed no evidence of acute intra-abdominal pathology. Patient was given a dose of IV Dilaudid and the patient was discharged home Vital Signs Vital signs: Vital Signs Temperature 36.1 C L 03/22/20 12:40 Pulse Rate 82 03/22/20 12:40 Respiratory Rate 16 03/22/20 12:40 Blood Pressure 165/120 H 03/22/20 12:40 Pulse Oximetry 98 03/22/20 12:40 Temperature 36.1 C L 03/22/20 12:40 Pulse Rate 91 03/22/20 16:18 Respiratory Rate 15 03/22/20 16:18 Blood Pressure 118/84 03/22/20 16:18 Pulse Oximetry 100 03/22/20 16:18 MDM - Abdominal Pain Lab Data Result diagrams: 03/22/20 14:28
[2020-03-22] MEDS: HYDROmorphone HCL INJ (*CRX) 1 MG/ML SYR IV PUSH (16:51)
[2020-03-22 17:38] VITALS: BP 149/83; PULSE 89; RESP 15; O2SAT 97
== END 2020-03-22 17:48 | disposition home or self-care (01) ==
PROVIDERS: Emergency Provider Emergency Medicine
DX: R10.84 Generalized abdominal pain (principal); G89.29 Other chronic pain; K21.9 Gastro-esophageal reflux disease without esophagitis; I10 Essential (primary) hypertension; K58.9 Irritable bowel syndrome, unspecified; Z87.442 Personal history of urinary calculi; F17.210 Nicotine dependence, cigarettes, uncomplicated; K40.90 Unilateral inguinal hernia, without obstruction or gangrene, not specified as recurrent
CPT/HCPCS: 36415; 74177; 80053; 81001; 83605; 83690; 85025; 96361; 96374; 96375; 96376; 99284; J1170; J2270; J2405; J7030; Q9967

== ENCOUNTER 2020-03-25 16:15 | Emergency (ER) | payer OTHER, SELFPAY ==
[2020-03-25 16:20] VITALS: BP 170/121; PULSE 81; RESP 18; TEMP 36.1; O2SAT 100
[2020-03-25 16:47] LABS: Basophils Percent Auto 0.4 % (0.2-1.2); Eosinophils Absolute Auto 0.1 K/mm3 (0-0.3); Hematocrit 41.2 % (42.0-52.0); Immature Granulocyte Absolute 0.03 K/mm3 (0.00-0.031); Immature Granulocyte Percent A 0.3 % (0-0.5); Lymphocytes Percent Auto 28.2 % (18.3-44.2); Mean Corpuscular Volume 91.4 fl (80-100); Mean Platelet Volume 9.7 fl (7.4-10.4); Monocytes Absolute Auto 1.1 K/mm3 (0.1-0.6); Monocytes Percent Auto 12.2 % (2.6-8.5); Neutrophils Absolute Auto 5.3 K/mm3 (1.3-6.7); Neutrophils Percent Auto 57.9 % (45.5-73.1); Platelet Count Result 281 k/mm3 (150-375); Red Blood Count 4.51 M/mm3 (4.6-6.20); Red Cell Distribution Width 12.9 % (11.5-14.5); White Blood Count 9.2 K/mm3 (4.5-10.0)
[2020-03-25] MEDS: PROCHLORPERAZINE EDISYLATE 10 MG/2 ML VIAL IV PUSH (16:57)
[2020-03-25] MEDS: SODIUM CHLORIDE 0.9% IV 1,000 ML 999 ML IV CONT (16:57)
[2020-03-25] MEDS: LORazepam INJ (*CRX) 2 MG/ML VIAL 1 MG IV PUSH (16:57)
[2020-03-25] MEDS: FAMOTIDINE 20 MG/2 ML VIAL IV PUSH (16:57)
[2020-03-25] MEDS: diphenhydrAMINE HCl INJ 50 MG/ML VIAL IV PUSH (16:57)
[2020-03-25 17:15] LABS: Alanine Aminotransferase 18 U/L (4-50); Albumin Level 4.2 g/dL (3.5-5.1); Alkaline Phosphatase 90 U/L (38-126); Anion Gap 9 mmol/L (8-16); Aspartate Amino Transferase 23 U/L (17-59); Bilirubin,Total 0.4 mg/dL (0.2-1.3); Blood Urea Nitrogen 6 mg/dL (9-20); Calcium 9.4 mg/dL (8.4-10.2); Carbon Dioxide 26 mmol/L (22-30); Chloride 103 mmol/L (98-107); Estimated CRCL calculation 113 ml/min; Estimated Glomerular Filt Rate > 60; Glucose 100 mg/dL (75-110); Lipase 121 U/L (23-300); Potassium 3.8 mmol/L (3.4-5.0); Sodium 138 mmol/L (137-145)
--- NOTE | 2020-03-25 17:23 | ED.ABDPAIN ---
HPI - Abdominal Pain General Chief Complaint: Abdominal Pain Stated Complaint: ABD pain n/v Time Seen by Provider: 03/25/20 16:44 Source: patient and old records reviewed Mode of arrival: ambulatory Limitations: no limitations History of Present Illness HPI narrative: Patient is a 39-year-old male who presents to emergency department for evaluation of nausea and vomiting and abdominal pain noting pain to the upper abdomen with similar occurrences in the past patient has been in the emergency department for this noting that he has had a continuation of his nausea and vomiting with numerous similar occurrences in the past patient on arrival appears uncomfortable but in no distress patient has been taking medications with minimal improvement Related Data Home Medications Medication Instructions Recorded Confirmed omeprazole 40 mg PO DAILY 02/27/20 Allergies Allergy/AdvReac Type Severity Reaction Status Date / Time doxycycline Allergy Unknown Unknown Verified 03/14/20 15:23 metoclopramide Allergy Unknown Unknown Verified 03/14/20 15:23 sulfamethoxazole Allergy Unknown Unknown Verified 03/14/20 15:23 trimethoprim Allergy Unknown Unknown Verified 03/14/20 15:23 Review of Systems Review of Systems: All systems reviewed & are unremarkable except as noted in HPI and below PMFSH Past Medical History Medical History Anxiety Colitis Cyclic vomiting syndrome Depression Gastroenteritis GERD (gastroesophageal reflux disease) Hypertension IBD (inflammatory bowel disease) Kidney stones Pancreatitis Surgical History Surgical History Hx of cholecystectomy Social History Social History Smoking packs per day: 0.5 Smoking cigarettes per day: 10.0 Smoking status: Current every day smoker Tobacco type: cigarettes Alcohol intake: never Substance use type: marijuana Gender identity (if verbalized by the patient): Male Exam Narrative: Exam Narrative: GENERAL: Well-appearing, well-nourished, uncomfortable and in no acute distress. HEAD: Normocephalic, atraumatic. EYES: PERRLA and EOMI. ENT: Nares clear, no rhinorrhea or epistaxis. Mucous membranes moist. NECK: Supple. No adenopathy or masses. CHEST: Clear to auscultation. No respiratory distress. No wheezes rales or rhonchi HEART: Regular rate and rhythm. No murmur heard. Normal peripheral pulses. ABDOMEN: Soft, tenderness in the upper quadrants of the abdomen, nondistended EXTREMITIES: Normal range of motion. No edema. SKIN: Warm, dry, no rash. NEURO: No focal deficits. Alert and oriented x3. Cranial nerves II through XII grossly intact PSYCH: Normal mood and affect. Course Course Emergency Course: Patient in the room appears uncomfortable requesting Dilaudid patient on all his prior visits has been giving narcotics and discharged home after being given narcotics patient's presentation is concerning for drug-seeking behavior which has been encouraged by the narcotic administration in this emergency department patient with no high risk changes in his blood work has had benign evaluations in this ER in the past presents requesting narcotics will not be given narcotics on this visit as he has been given and his subsequent visits patient advised that he needs to see his specialist and his primary care to discuss his need for narcotics to treat his pain it is felt that is not appropriate or safe in this emergency department to continue this practice in the management of this gentleman's illness. Patient with likely cyclic vomiting which does not recommend the use of narcotics in his treatment. Patient was given fluids and medications in the emergency department is afebrile nontoxic-appearing no distress Vital Signs Vital signs: Vital Signs Temperature 96.9 F L 03/25/20 16:20 Pulse Rate 81 11/
[2020-03-25 17:43] LABS: Add Urine Microscopic? YES; Appearance Urine Clear (Clear); Bilirubin Urine Negative (Negative); Blood Urine Negative (Negative); Color Urine Yellow (Yellow); Glucose Urine UA Negative (Negative); Ketones Urine Trace mg/dL (Negative); Leukocyte Esterase Ur Negative LEU/UL (Negative); Mucus Urine Rare /lpf; Nitrate Urine Negative (Negative); Protein Urine Negative (Negative); RBC Urine 0-2 /hpf (0-2); Specific Grav Ur 1.014 (1.001-1.035); Squamous Epithelial Cell Urine Rare /hpf (Few); Urobilinogen Urine Negative mg/dL (<2.0); WBC Urine 0-3 /hpf
[2020-03-25] MEDS: LIDOCAINE HCL 2% VISC SOLN 15 ML UDC 20 ML PO (18:20)
[2020-03-25] MEDS: HYOSCYAMINE SULFATE 0.125 MG TABLET PO (18:20)
[2020-03-25] MEDS: IBUPROFEN IV 800 MG/200 ML 800 MG/200 ML BAG 400 MG IVPB (18:20)
[2020-03-25] MEDS: MAG HYDROX/AL HYDROX/SIMETH 30 ML UDC PO (18:21)
[2020-03-25 18:22] VITALS: BP 149/89; PULSE 89; RESP 17; O2SAT 99
== END 2020-03-25 19:14 | disposition home or self-care (01) ==
PROVIDERS: Emergency Provider Emergency Medicine
DX: Z76.5 Malingerer [conscious simulation] (principal); R10.9 Unspecified abdominal pain; K21.9 Gastro-esophageal reflux disease without esophagitis; I10 Essential (primary) hypertension; K58.9 Irritable bowel syndrome, unspecified; Z87.442 Personal history of urinary calculi; F17.210 Nicotine dependence, cigarettes, uncomplicated
CPT/HCPCS: 36415; 80053; 81001; 83690; 85025; 96361; 96365; 96375; 99284; A9270; J0780; J1200; J1741; J2060; J7030

== ENCOUNTER 2020-03-28 18:18 | Emergency (ER) | payer OTHER, SELFPAY ==
--- NOTE | ~2020-03-28 | XR_ITS ---
EXAMINATION: XR abdomen obstructive series DATE: 03/28/2020 20:07 INDICATION: Right upper quadrant abdominal pain, nausea and vomiting. TECHNIQUE: Frontal supine and upright views of the abdomen were obtained. COMPARISON: CT dated 03/22/2020 FINDINGS: Air-fluid levels in the colon consistent with diarrhea. No dilated gas-filled loops of bowel. No hoa e intraperitoneal gas. Visualized lung bases are clear. Heart size is normal. Bones and soft tissues are unremarkable. IMPRESSION: 1. No free intraperitoneal gas or dilated gas-filled loops of bowel to suggest obstruction. Reviewed, dictated and finalized at location H. ER COMMENTATOR
[2020-03-28 18:48] VITALS: BP 125/85; PULSE 94; RESP 18; TEMP 36.6; O2SAT 97
[2020-03-28 19:24] LABS: Basophils Percent Auto 0.2 % (0.2-1.2); Eosinophils Absolute Auto 0.1 K/mm3 (0-0.3); Eosinophils Percent Auto 0.7 % (0-4.4); Hematocrit 38.5 % (42.0-52.0); Immature Granulocyte Absolute 0.07 K/mm3 (0.00-0.031); Immature Granulocyte Percent A 0.5 % (0-0.5); Lymphocytes Absolute Auto 1.52 K/mm3 (0.9-3.2); Lymphocytes Percent Auto 10.2 % (18.3-44.2); Mean Corpuscular HGB Conc 33.8 g/dl (32-36); Mean Corpuscular Hemoglobin 31.3 pg (26-34); Mean Corpuscular Volume 92.5 fl (80-100); Monocytes Absolute Auto 1.4 K/mm3 (0.1-0.6); Monocytes Percent Auto 9.4 % (2.6-8.5); Neutrophils Absolute Auto 11.8 K/mm3 (1.3-6.7); Platelet Count Result 265 k/mm3 (150-375); Red Blood Count 4.16 M/mm3 (4.6-6.20); Red Cell Distribution Width 13.2 % (11.5-14.5); White Blood Count 14.9 K/mm3 (4.5-10.0)
[2020-03-28 19:33] LABS: Add Urine Microscopic? YES; Amorphous Sediment Urine Few; Appearance Urine Cloudy (Clear); Bacteria Urine Trace /hpf; Bilirubin Urine Negative (Negative); Blood Urine Negative (Negative); Color Urine Yellow (Yellow); Glucose Urine UA Negative (Negative); Ketones Urine Trace mg/dL (Negative); Leukocyte Esterase Ur Negative LEU/UL (Negative); Mucus Urine Rare /lpf; Nitrate Urine Negative (Negative); Protein Urine Negative (Negative); RBC Urine 0-2 /hpf (0-2); Specific Grav Ur 1.012 (1.001-1.035); Urobilinogen Urine Negative mg/dL (<2.0); WBC Urine 0-3 /hpf
[2020-03-28 19:37] LABS: Alanine Aminotransferase 14 U/L (4-50); Alkaline Phosphatase 79 U/L (38-126); Anion Gap 8 mmol/L (8-16); Aspartate Amino Transferase 23 U/L (17-59); Bilirubin,Total 0.4 mg/dL (0.2-1.3); Blood Urea Nitrogen 8 mg/dL (9-20); Calcium 9.1 mg/dL (8.4-10.2); Carbon Dioxide 30 mmol/L (22-30); Chloride 102 mmol/L (98-107); Estimated CRCL calculation 101 ml/min; Estimated Glomerular Filt Rate > 60; Glucose 88 mg/dL (75-110); Lipase 97 U/L (23-300); Potassium 3.9 mmol/L (3.4-5.0); Sodium 140 mmol/L (137-145)
[2020-03-28 19:44] LABS: Amphetamine Screen Urine Negative (Negative); Barbiturate Screen Urine Negative (Negative); Benzodiazepines Screen Urine Negative (Negative); Cannabinoid Screen Urine Positive (Negative); Cocaine Screen Urine Negative (Negative); Methadone Screen Urine Negative (Negative); Opiate Screen Urine Negative (Negative); Phencyclidine Screen Urine Negative (Negative)
--- NOTE | 2020-03-28 20:05 | ED.ABDPAIN ---
HPI - Abdominal Pain General Chief Complaint: Abdominal Pain Stated Complaint: N/V ABD PAIN Time Seen by Provider: 03/28/20 19:45 Source: patient Mode of arrival: ambulatory Limitations: no limitations History of Present Illness HPI narrative: This is a 39-year-old male that presents the emergency department for abdominal pain since this morning. Reports sharp upper abdominal pain which has been constant in nature. Associated with nausea and vomiting. Reports history of chronic abdominal problems for which he sees Dr. Woodard. Denies fever, dysuria or hematuria. Related Data Home Medications Medication Instructions Recorded Confirmed omeprazole 40 mg PO DAILY 02/27/20 [id number] [Creon] 1 cap PO TID 03/28/20 Allergies Allergy/AdvReac Type Severity Reaction Status Date / Time doxycycline Allergy Unknown Unknown Verified 03/28/20 19:06 metoclopramide Allergy Unknown Unknown Verified 03/28/20 19:06 sulfamethoxazole Allergy Unknown Unknown Verified 03/28/20 19:06 trimethoprim Allergy Unknown Unknown Verified 03/28/20 19:06 [facility] Past Medical History Medical History Anxiety Colitis Cyclic vomiting syndrome Depression Gastroenteritis GERD (gastroesophageal reflux disease) Hypertension IBD (inflammatory bowel disease) Kidney stones Pancreatitis Surgical History Surgical History Hx of cholecystectomy Social History Social History Smoking packs per day: 0.5 Smoking cigarettes per day: 10.0 Smoking status: Current every day smoker Tobacco type: cigarettes Alcohol intake: never Substance use type: marijuana Gender identity (if verbalized by the patient): Male Course Vital Signs Vital signs: Vital Signs Temperature 97.8 F 03/28/20 18:48 Pulse Rate 94 03/28/20 18:48 Respiratory Rate 18 03/28/20 18:48 Blood Pressure 125/85 03/28/20 18:48 Pulse Oximetry 97 03/28/20 18:48 Temperature 97.8 F 03/28/20 18:48 Pulse Rate 68 03/28/20 21:26 Respiratory Rate 20 03/28/20 21:26 Blood Pressure 124/71 03/28/20 21:26 Pulse Oximetry 98 03/28/20 21:26 MDM - Abdominal Pain MDM Narrative Medical decision making narrative: Patient presents to the emergency department for abdominal pain since this morning. Has been seen in the ED for same complaint multiple times. Patient's vitals are normal. He is afebrile and nontoxic-appearing. CBC does show leukocytosis with white blood cell count of 14.9. Also shows mild normocytic anemia with hemoglobin of 13. Metabolic panel and lipase is without acute findings. UA is without evidence of infection. KUB is without acute findings. Patient reports improvement and is able to tolerate p.o. challenge. Patient with history of chronic abdominal pain just had a CT scan of his abdomen and pelvis 6 days ago for same symptoms that was without acute findings. He is stable and felt appropriate for further outpatient evaluation. He was instructed to follow-up with his sign designer. He was given warnings to return to the ER Lab Data Attestation: I reviewed the patient's lab results. Result diagrams: 03/28/20 19:03/28/20 19:07 Labs: Lab Results 03/28/20 03/28/20 03/28/20 Range/Units 19:07 19:07 19:21 WBC 14.9 H (4.5-10.0) K/mm3 RBC 4.16 L (4.6-6.20) M/mm3 Hgb 13.0 L (14.0-18.0) g/dL Hct 38.5 L (42.0-52.0) % MCV 92.5 (80-100) fl MCH 31.3 (26-34) pg MCHC 33.8 (32-36) g/dl RDW 13.2 (11.5-14.5) % Plt Count 265 (150-375) k/mm3 MPV 10.0 (7.4-10.4) fl Immature Gran % (Auto) 0.5 (0-0.5) % Neut % (Auto) 79.0 H (45.5-73.1) % Lymph % (Auto) 10.2 L (18.3-44.2) % [place] % (Auto) 9.4 H (2.6-8.5) % Eos % (Auto) 0.7 (0-4.4) % Baso % (Auto) 0.2 (0.2-1.2) % Lymph #
--- NOTE | 2020-03-28 20:08 | ECG_ITS ---
Measurements Intervals [place] Rate: 83 P: 51 [place]: 121 QRS: 38 QRSD: 99 T: 45 QT: 351 QTc: 415 Interpretive Statements SINUS RHYTHM INCOMPLETE RIGHT BUNDLE BRANCH BLOCK BASELINE ARTIFACT- I, II, III, AVR, AVL BORDERLINE ECG Electronically Signed On 03-28-2020 20:25:56 LINUX KERNEL ENGINEER by Bebo Stark D.O.
[2020-03-28] MEDS: FAMOTIDINE 20 MG/2 ML VIAL IV PUSH (20:19)
[2020-03-28] MEDS: HALOPERIDOL LACTATE 5 MG/ML VIAL IV PUSH (20:19)
[2020-03-28] MEDS: SODIUM CHLORIDE 0.9% IV 1,000 ML 999 ML IV CONT (20:20)
[2020-03-28 21:26] VITALS: BP 124/71; PULSE 68; RESP 20; O2SAT 98
[2020-03-28 23:21] VITALS: BP 160/78; PULSE 82; O2SAT 98
== END 2020-03-28 23:15 | disposition home or self-care (01) ==
PROVIDERS: Emergency Medicine Emergency Medical Services; Emergency Provider Emergency Medicine; PCP Family Medicine
DX: R10.13 Epigastric pain (principal); F41.9 Anxiety disorder, unspecified; F32.9 Major depressive disorder, single episode, unspecified; K21.9 Gastro-esophageal reflux disease without esophagitis; I10 Essential (primary) hypertension; F17.210 Nicotine dependence, cigarettes, uncomplicated
CPT/HCPCS: 36415; 74019; 80053; 80307; 81001; 83690; 85025; 93005; 96365; 96375; 99284; J0131; J1630; J7030

== ENCOUNTER 2020-04-19 11:29 | Emergency (ER) | payer OTHER, SELFPAY ==
--- NOTE | ~2020-04-19 | CT_ITS ---
EXAMINATION: CT abdomen pelvis w con DATE: 04/19/2020 13:43 INDICATION: Abdominal pain. Vomiting. TECHNIQUE: Computed tomography (CT) of the abdomen and pelvis was performed with 100 mL Omnipaque 350 intravenous contrast. Automated exposure control and iterative reconstruction technique were employe d. The dose-length product was 323.40 mGy-cm. COMPARISON: CT abdomen and pelvis 03/22/2020 FINDINGS: The visualized portions of the lung bases are clear without pneumonia or pleural effusion. The heart size is normal. No pericardial effusion. The liver and spleen are normal. There are changes of cholecystectomy. The pancreas, adrenal glands, and kidneys are normal. There is a right inguinal hernia containing fat. There are no dilated loops of bowel. The appendix is normal. There are no path ologically enlarged lymph nodes. There is no free intraperitoneal fluid. There is mild thoracolumbar spondylosis. IMPRESSION: 1. Right inguinal hernia containing fat. Reviewed, dictated and finalized at location B. TURBINE TECHNICIAN
[2020-04-19 11:51] VITALS: BP 164/112; PULSE 125; RESP 22; TEMP 35.7; O2SAT 99
[2020-04-19 12:17] LABS: Basophils Absolute Auto 0.1 K/mm3 (0.0-0.1); Basophils Percent Auto 0.4 % (0.2-1.2); Eosinophils Absolute Auto 0.1 K/mm3 (0-0.3); Eosinophils Percent Auto 0.8 % (0-4.4); Hematocrit 40.2 % (42.0-52.0); Hemoglobin 13.6 g/dL (14.0-18.0); Immature Granulocyte Absolute 0.09 K/mm3 (0.00-0.031); Immature Granulocyte Percent A 0.6 % (0-0.5); Lymphocytes Absolute Auto 1.79 K/mm3 (0.9-3.2); Lymphocytes Percent Auto 11.2 % (18.3-44.2); Mean Corpuscular HGB Conc 33.8 g/dl (32-36); Mean Corpuscular Hemoglobin 30.4 pg (26-34); Mean Corpuscular Volume 89.9 fl (80-100); Mean Platelet Volume 9.9 fl (7.4-10.4); Monocytes Absolute Auto 1.2 K/mm3 (0.1-0.6); Monocytes Percent Auto 7.5 % (2.6-8.5); Neutrophils Absolute Auto 12.7 K/mm3 (1.3-6.7); Neutrophils Percent Auto 79.5 % (45.5-73.1); Platelet Count Result 257 k/mm3 (150-375); Red Blood Count 4.47 M/mm3 (4.6-6.20); Red Cell Distribution Width 12.9 % (11.5-14.5); White Blood Count 15.9 K/mm3 (4.5-10.0)
[2020-04-19 12:31] LABS: Alanine Aminotransferase 13 U/L (4-50); Alkaline Phosphatase 88 U/L (38-126); Anion Gap 8 mmol/L (8-16); Aspartate Amino Transferase 22 U/L (17-59); Bilirubin,Total 0.4 mg/dL (0.2-1.3); Blood Urea Nitrogen 10 mg/dL (9-20); Calcium 9.2 mg/dL (8.4-10.2); Carbon Dioxide 25 mmol/L (22-30); Chloride 107 mmol/L (98-107); Estimated CRCL calculation 113 ml/min; Estimated Glomerular Filt Rate > 60; Glucose 132 mg/dL (75-110); Lipase 300 U/L (23-300); Potassium 3.9 mmol/L (3.4-5.0); Sodium 140 mmol/L (137-145)
--- NOTE | 2020-04-19 12:52 | ED.ABDPAIN ---
HPI - Abdominal Pain General Chief Complaint: Abdominal Pain Stated Complaint: abd pain Time Seen by Provider: 04/19/20 12:52 Source: patient Mode of arrival: ambulatory Limitations: no limitations History of Present Illness HPI narrative: Patient is a 39-year-old male with a history of pancreatitis, well-known to our facility, who presents for evaluation of abdominal pain. Pain is located in the epigastrium, burning in nature associated with numerous episodes of nonbloody, nonbilious emesis. Patient states he feels sweaty. He denies any chest pain or shortness of breath. He denies painful urination. Patient took Zofran at home without much improvement in his symptoms. Related Data Home Medications Medication Instructions Recorded Confirmed [id number] [Creon] 1 cap PO TID 03/28/20 escitalopram oxalate mg 04/19/20 pantoprazole PO 04/19/20 Allergies Allergy/AdvReac Type Severity Reaction Status Date / Time doxycycline Allergy Unknown Unknown Verified 04/19/20 12:18 metoclopramide Allergy Unknown Unknown Verified 04/19/20 12:18 sulfamethoxazole Allergy Unknown Unknown Verified 04/19/20 12:18 trimethoprim Allergy Unknown Unknown Verified 04/19/20 12:18 Review of Systems Review of Systems: Narrative: CONSTITUTIONAL: Denies fever, reports chills and feeling sweaty EYES: Denies visual changes, redness, or discharge. ENT: Reports mild rhinorrhea CARDIOVASCULAR: Denies chest pain, palpitations, or edema. RESPIRATORY: Denies cough or dyspnea. GASTROINTESTINAL: Reports upper abdominal pain, nausea and vomiting GENITOURINARY: Denies dysuria or hematuria. SKIN: Denies rash or itching. MUSCULOSKELETAL: Denies back pain, joint pain, or myalgia. NEUROLOGIC: Denies headache, numbness, or weakness. [facility] Past Medical History Medical History Anxiety Colitis Cyclic vomiting syndrome Depression Gastroenteritis GERD (gastroesophageal reflux disease) Hypertension IBD (inflammatory bowel disease) Kidney stones Pancreatitis Surgical History Surgical History Hx of cholecystectomy Social History Social History Smoking packs per day: 0.5 Smoking cigarettes per day: 10.0 Smoking status: Current every day smoker Tobacco type: cigarettes Alcohol intake: never Substance use type: marijuana Gender identity (if verbalized by the patient): Male Exam Narrative: Exam Narrative: GENERAL: Awake, alert, conversant, diaphoretic, uncomfortable appearing HEAD: Normocephalic, atraumatic. EYES: PERRLA and EOMI. ENT: Nares clear, no rhinorrhea or epistaxis. Mucous membranes moist. NECK: Supple. CHEST: No respiratory distress, breathing even and non labored HEART: Tachycardic rate, sinus rhythm ABDOMEN:Non distended, mild tenderness in the epigastrium, no rigidity, no guarding, no focal right upper quadrant, left upper quadrant, right lower quadrant or left lower quadrant tenderness, no rebound EXTREMITIES: Normal range of motion. No edema. SKIN: Warm, dry, no rash. NEURO:No focal deficits. Alert and oriented x3 Course Vital Signs Vital signs: Vital Signs Temperature 35.7 C L 04/19/20 11:51 Pulse Rate 125 H 04/19/20 11:51 Respiratory Rate 22 H 04/19/20 11:51 Blood Pressure 164/112 H 04/19/20 11:51 Pulse Oximetry 99 04/19/20 11:51 Temperature 35.7 C L 04/19/20 11:51 Pulse Rate 78 04/19/20 15:30 Respiratory Rate 16 04/19/20 15:30 Blood Pressure 107/77 04/19/20 15:30 Pulse Oximetry 98 04/19/20 15:30 MDM - Abdominal Pain MDM Narrative Medical decision making narrative: Patient is well-known to our facility for cyclical vomiting. At the time of assessment reporting upper abdominal pain, patient is tachycardic, tachypneic. No hypotension. Technically, patient meets SIRS criteria, however after IV fluids, pat
[2020-04-19] MEDS: MORPHINE SULFATE (*CRX) 4 MG/ML INJ IV PUSH ×2 (13:00→13:22)
[2020-04-19] MEDS: SODIUM CHLORIDE 0.9% IV 1,000 ML 999 ML IV CONT ×2 (13:01)
[2020-04-19] MEDS: ONDANSETRON INJ 4 MG/2 ML VIAL IV PUSH (13:01)
[2020-04-19] MEDS: FAMOTIDINE 20 MG/2 ML VIAL IV PUSH (13:22)
[2020-04-19 13:54] LABS: Lactic Acid Reflex 1.2 mmol/L (0.7-2.1)
[2020-04-19] MEDS: LORazepam INJ (*CRX) 2 MG/ML VIAL 0.5 MG IV PUSH (14:00)
[2020-04-19 15:30] VITALS: BP 107/77; PULSE 78; RESP 16; O2SAT 98
[2020-04-19 17:18] VITALS: BP 122/74; PULSE 84; RESP 16; O2SAT 98
== END 2020-04-19 17:00 | disposition home or self-care (01) ==
PROVIDERS: Emergency Medicine Emergency Medical Services; Emergency Provider Emergency Medicine
DX: R11.15 Cyclical vomiting syndrome unrelated to migraine (principal); E86.0 Dehydration; F32.9 Major depressive disorder, single episode, unspecified; F41.9 Anxiety disorder, unspecified; K21.9 Gastro-esophageal reflux disease without esophagitis; K58.9 Irritable bowel syndrome, unspecified; Z87.442 Personal history of urinary calculi; F17.210 Nicotine dependence, cigarettes, uncomplicated; K44.9 Diaphragmatic hernia without obstruction or gangrene
CPT/HCPCS: 36415; 74177; 80053; 83605; 83690; 85025; 87040; 96361; 96374; 96375; 99284; J2060; J2270; J2405; J7030; Q9967

== ENCOUNTER 2020-04-24 09:21 | Emergency (ER) | payer OTHER, SELFPAY ==
--- NOTE | 2020-04-24 09:32 | ED.ABDPAIN ---
HPI - Abdominal Pain General Chief Complaint: Abdominal Pain Stated Complaint: vomiting/pain/hx of pancreatitis Time Seen by Provider: 04/24/20 09:26 Source: patient Mode of arrival: ambulatory Limitations: no limitations History of Present Illness HPI narrative: Patient work-up with epigastric pain, nausea and vomiting. Patient is known to us with frequent ED visits for the same symptoms. History of cyclic vomiting syndrome. Patient denies any fever, chills, sore throat, respiratory symptoms, exposure to anybody known having COVID-19 Related Data Home Medications Medication Instructions Recorded Confirmed [id number] [Creon] 1 cap PO TID 03/28/20 escitalopram oxalate mg 04/19/20 pantoprazole PO 04/19/20 Allergies Allergy/AdvReac Type Severity Reaction Status Date / Time doxycycline Allergy Unknown Unknown Verified 04/24/20 09:43 metoclopramide Allergy Unknown Unknown Verified 04/24/20 09:43 sulfamethoxazole Allergy Unknown Unknown Verified 04/24/20 09:43 trimethoprim Allergy Unknown Unknown Verified 04/24/20 09:43 Review of Systems Review of Systems: Narrative: CONSTITUTIONAL: Denies fever, chills, or sweats. EYES: Denies visual changes, redness, or discharge. ENT: Denies rhinorrhea, congestion, sore throat, or otalgia. CARDIOVASCULAR: Denies chest pain, palpitations, or edema. RESPIRATORY: Denies cough or dyspnea. GASTROINTESTINAL: Abdominal pain with nausea and vomiting GENITOURINARY: Denies dysuria or hematuria. SKIN: Denies rash or itching. MUSCULOSKELETAL: Denies back pain, joint pain, or myalgia. NEUROLOGIC: Denies headache, numbness, or weakness. PSYCHIATRIC: Denies anxiety or depression. [facility] Past Medical History Medical History Anxiety Colitis Cyclic vomiting syndrome Depression Gastroenteritis GERD (gastroesophageal reflux disease) Hypertension IBD (inflammatory bowel disease) Kidney stones Pancreatitis Surgical History Surgical History Hx of cholecystectomy Social History Social History Smoking packs per day: 0.5 Smoking cigarettes per day: 10.0 Smoking status: Current every day smoker Tobacco type: cigarettes Alcohol intake: never Substance use type: marijuana Gender identity (if verbalized by the patient): Male Exam Narrative: Exam Narrative: General appearance: Well-developed, well-nourished, bending forward, with dry heaves Skin: Normal color Head: Normocephalic, nontraumatic Eyes: Clear conjunctiva ENT: Oropharynx normal, ears normal, nose normal Neck: Supple, nontender Chest and respiratory: Airway patent, no respiratory distress, no accessory muscle use Heart: Regular rate/rhythm Abdomen: Mild tenderness epigastric area, quiet bowel sounds Vascular: Normal peripheral pulses, normal capillary refill. Neurologic: Alert and oriented ?3, COMPUTER NETWORKING INSTRUCTOR ADJUNCT is normal as tested, no gross motor deficit Course Course Emergency Course: Improving Vital Signs Vital signs: Vital Signs Temperature 36.2 C L 04/24/20 09:40 Pulse Rate 74 04/24/20 09:40 Respiratory Rate 16 04/24/20 09:40 Blood Pressure 179/107 H 04/24/20 09:40 Pulse Oximetry 98 04/24/20 09:40 Temperature 36.2 C L 04/24/20 09:40 Pulse Rate 74 04/24/20 09:40 Respiratory Rate 16 04/24/20 09:40 Blood Pressure 179/107 H 04/24/20 09:40 Pulse Oximetry 98 04/24/20 09:40 MDM - Abdominal Pain MDM Narrative Medical decision making narrative: Patient presents with abdominal pain, recurrent similar symptoms secondary to cyclic vomiting syndrome. L
[2020-04-24 09:40] VITALS: BP 179/107; PULSE 74; RESP 16; TEMP 36.2; O2SAT 98
[2020-04-24 09:59] LABS: Basophils Absolute Auto 0.1 K/mm3 (0.0-0.1); Basophils Percent Auto 0.5 % (0.2-1.2); Eosinophils Absolute Auto 0.2 K/mm3 (0-0.3); Eosinophils Percent Auto 1.5 % (0-4.4); Hematocrit 39.9 % (42.0-52.0); Hemoglobin 13.8 g/dL (14.0-18.0); Immature Granulocyte Absolute 0.03 K/mm3 (0.00-0.031); Immature Granulocyte Percent A 0.3 % (0-0.5); Lymphocytes Absolute Auto 2.98 K/mm3 (0.9-3.2); Lymphocytes Percent Auto 27.4 % (18.3-44.2); Mean Corpuscular HGB Conc 34.6 g/dl (32-36); Mean Corpuscular Hemoglobin 30.7 pg (26-34); Mean Corpuscular Volume 88.7 fl (80-100); Monocytes Absolute Auto 1.2 K/mm3 (0.1-0.6); Monocytes Percent Auto 10.7 % (2.6-8.5); Neutrophils Absolute Auto 6.5 K/mm3 (1.3-6.7); Neutrophils Percent Auto 59.6 % (45.5-73.1); Platelet Count Result 278 k/mm3 (150-375); Red Cell Distribution Width 13.2 % (11.5-14.5); White Blood Count 10.9 K/mm3 (4.5-10.0)
[2020-04-24] MEDS: LORazepam INJ (*CRX) 2 MG/ML VIAL 1 MG IV PUSH (10:00)
[2020-04-24] MEDS: SODIUM CHLORIDE 0.9% IV 1,000 ML 999 ML IV CONT (10:00)
[2020-04-24] MEDS: HYDROmorphone HCL INJ (*CRX) 1 MG/ML SYR 0.5 MG IV PUSH (10:00)
[2020-04-24] MEDS: ONDANSETRON INJ 4 MG/2 ML VIAL 8 MG IV PUSH (10:01)
[2020-04-24 10:12] LABS: Alanine Aminotransferase 16 U/L (4-50); Albumin Level 4.1 g/dL (3.5-5.1); Alkaline Phosphatase 86 U/L (38-126); Anion Gap 6 mmol/L (8-16); Aspartate Amino Transferase 26 U/L (17-59); Bilirubin,Total 0.5 mg/dL (0.2-1.3); Blood Urea Nitrogen 7 mg/dL (9-20); Calcium 9.6 mg/dL (8.4-10.2); Carbon Dioxide 29 mmol/L (22-30); Chloride 104 mmol/L (98-107); Estimated CRCL calculation 113 ml/min; Estimated Glomerular Filt Rate > 60; Glucose 115 mg/dL (75-110); Lipase 292 U/L (23-300); Potassium 3.9 mmol/L (3.4-5.0); Sodium 139 mmol/L (137-145)
[2020-04-24] MEDS: FAMOTIDINE 20 MG/2 ML VIAL 40 MG IV PUSH (12:56)
== END 2020-04-24 13:06 | disposition home or self-care (01) ==
PROVIDERS: Emergency Provider Emergency Medicine
DX: R10.13 Epigastric pain (principal); F17.210 Nicotine dependence, cigarettes, uncomplicated; K21.9 Gastro-esophageal reflux disease without esophagitis; I10 Essential (primary) hypertension; F41.9 Anxiety disorder, unspecified; F32.9 Major depressive disorder, single episode, unspecified; R11.15 Cyclical vomiting syndrome unrelated to migraine
CPT/HCPCS: 36415; 80053; 83690; 85025; 96361; 96374; 96375; 99284; J1170; J2060; J2405; J7030

== ENCOUNTER 2020-04-27 11:45 | Emergency (ER) | payer OTHER, SELFPAY ==
[2020-04-27 12:10] VITALS: BP 148/98; PULSE 91; RESP 19; TEMP 36.6; O2SAT 100
[2020-04-27 12:17] LABS: Basophils Absolute Auto 0.1 K/mm3 (0.0-0.1); Basophils Percent Auto 0.6 % (0.2-1.2); Eosinophils Absolute Auto 0.2 K/mm3 (0-0.3); Eosinophils Percent Auto 2.3 % (0-4.4); Hematocrit 42.1 % (42.0-52.0); Hemoglobin 14.3 g/dL (14.0-18.0); Immature Granulocyte Absolute 0.02 K/mm3 (0.00-0.031); Immature Granulocyte Percent A 0.2 % (0-0.5); Lymphocytes Absolute Auto 2.11 K/mm3 (0.9-3.2); Lymphocytes Percent Auto 25.4 % (18.3-44.2); Mean Corpuscular Hemoglobin 30.7 pg (26-34); Mean Corpuscular Volume 90.3 fl (80-100); Mean Platelet Volume 10.2 fl (7.4-10.4); Monocytes Absolute Auto 0.9 K/mm3 (0.1-0.6); Monocytes Percent Auto 10.9 % (2.6-8.5); Neutrophils Percent Auto 60.6 % (45.5-73.1); Platelet Count Result 307 k/mm3 (150-375); Red Blood Count 4.66 M/mm3 (4.6-6.20); Red Cell Distribution Width 13.4 % (11.5-14.5); White Blood Count 8.3 K/mm3 (4.5-10.0)
[2020-04-27] MEDS: MORPHINE SULFATE (*CRX) 4 MG/ML INJ IV PUSH (12:28)
[2020-04-27] MEDS: HALOPERIDOL LACTATE 5 MG/ML VIAL IV PUSH (12:28)
[2020-04-27] MEDS: SODIUM CHLORIDE 0.9% IV 1,000 ML 999 ML IV CONT (12:28)
[2020-04-27 12:29] LABS: Alanine Aminotransferase 17 U/L (4-50); Albumin Level 4.3 g/dL (3.5-5.1); Alkaline Phosphatase 93 U/L (38-126); Anion Gap 8 mmol/L (8-16); Aspartate Amino Transferase 25 U/L (17-59); Bilirubin,Total 0.6 mg/dL (0.2-1.3); Blood Urea Nitrogen 9 mg/dL (9-20); Calcium 9.6 mg/dL (8.4-10.2); Carbon Dioxide 27 mmol/L (22-30); Chloride 105 mmol/L (98-107); Estimated CRCL calculation 101 ml/min; Estimated Glomerular Filt Rate > 60; Glucose 121 mg/dL (75-110); Lipase 181 U/L (23-300); Sodium 140 mmol/L (137-145)
--- NOTE | 2020-04-27 13:43 | ED.ABDPAIN ---
HPI - Abdominal Pain General Chief Complaint: Abdominal Pain Stated Complaint: vomiting, abd pain Time Seen by Provider: 04/27/20 12:10 Source: patient Mode of arrival: ambulatory Limitations: no limitations History of Present Illness HPI narrative: 39-year-old with history of pancreatitis and recurrent abdominal pain here with a severe midepigastric pain, nausea and vomiting since this morning. Patient denies any alcohol use. Denies any fever or chills. Patient was seen 3 days ago for the same in the ER. Pertinent past history: gastritis Pain Consistency: constant Location: epigastric Quality: aching Migration to: no migration Exacerbating factors: nothing Relieving factors: nothing Related Data Home Medications Medication Instructions Recorded Confirmed [id number]-fwfsjlmo-fpalrso [Creon] 1 cap PO TID 03/28/20 escitalopram oxalate mg 04/19/20 pantoprazole PO 04/19/20 Allergies Allergy/AdvReac Type Severity Reaction Status Date / Time doxycycline Allergy Unknown Unknown Verified 04/27/20 12:20 metoclopramide Allergy Unknown Unknown Verified 04/27/20 12:20 sulfamethoxazole Allergy Unknown Unknown Verified 04/27/20 12:20 trimethoprim Allergy Unknown Unknown Verified 04/27/20 12:20 Review of Systems Review of Systems: All systems reviewed & are unremarkable except as noted in HPI and below Constitutional: Constitutional: Reports no additional constitutional complaints ENT: Reports system reviewed and no additional complaints, except as documented Cardiovascular: Cardiovascular: Reports no additional cardiovascular complaints Respiratory: Respiratory: Reports no additional respiratory complaints Gastrointestinal: Gastrointestinal: Reports as per HPI Genitourinary: Genitourinary: Reports no additional male genitourinary complaints Neurologic: Reports system reviewed and no additional complaints, except as documented Psychiatric: Psychiatric: Reports no additional psychiatric complaints [facility] Past Medical History Medical History Anxiety Colitis Cyclic vomiting syndrome Depression Gastroenteritis GERD (gastroesophageal reflux disease) Hypertension IBD (inflammatory bowel disease) Kidney stones Pancreatitis Surgical History Surgical History Hx of cholecystectomy Social History Social History Smoking packs per day: 0.5 Smoking cigarettes per day: 10.0 Smoking status: Current every day smoker Tobacco type: cigarettes Alcohol intake: never Substance use type: marijuana Gender identity (if verbalized by the patient): Male Exam Narrative: Exam Narrative: GENERAL: Well-appearing, well-nourished, acute distress sec to pain and nausea HEAD: Normocephalic, atraumatic. EYES: PERRLA and EOMI. ENT: Nares clear, no rhinorrhea or epistaxis. Mucous membranes moist. NECK: Supple. CHEST: Clear to auscultation. No respiratory distress. HEART: Regular rate and rhythm. No murmur heard. Normal peripheral pulses. ABDOMEN: Soft, nontender, nondistended, normal active bowel sounds. EXTREMITIES: Normal range of motion. No edema. SKIN: Warm, dry, no rash. NEURO: No focal deficits. Alert and oriented x3. PSYCH: Normal mood and affect. Course Course Emergency Course: Inform patient about his lab work. It appears to be high likes narcotics I did give him for the benefit of Dilaudid 4 mg morphine she said that it did not help. However his nausea and vomiting much improved I advised him to continue his home medication. Also consider consulting GI in the near future., Vital Signs Vital signs: Vital Signs Temperature 36.6 C 04/27/20 12:10 Pulse Rate 91 04/27/20 12:10 Respiratory Rate 19 04/27/20 12:10 Blood Pressure 148/98 H 04/27/20 12:10 Pulse Oximetry 100 04/27/20 12:10 Temperature 36.6 C 04/27/20 12:10 Pulse Rate
[2020-04-27 13:51] VITALS: BP 154/92; PULSE 87; RESP 17; O2SAT 98
[2020-04-27 13:53] LABS: Add Urine Microscopic? YES; Amorphous Sediment Urine Few; Appearance Urine Turbid (Clear); Bilirubin Urine Negative (Negative); Blood Urine Negative (Negative); Color Urine Yellow (Yellow); Glucose Urine UA Negative (Negative); Ketones Urine Trace mg/dL (Negative); Leukocyte Esterase Ur Negative LEU/UL (Negative); Mucus Urine Rare /lpf; Nitrate Urine Negative (Negative); Protein Urine 1+ mg/dL (Negative); Specific Grav Ur 1.015 (1.001-1.035); Urobilinogen Urine Negative mg/dL (<2.0)
[2020-04-27] MEDS: FAMOTIDINE 20 MG/2 ML VIAL IV PUSH (13:57)
== END 2020-04-27 14:08 | disposition home or self-care (01) ==
PROVIDERS: Emergency Medicine; Emergency Provider Family Medicine
DX: R10.13 Epigastric pain (principal); R11.15 Cyclical vomiting syndrome unrelated to migraine; F41.9 Anxiety disorder, unspecified; F32.9 Major depressive disorder, single episode, unspecified; K21.9 Gastro-esophageal reflux disease without esophagitis; I10 Essential (primary) hypertension; K58.9 Irritable bowel syndrome, unspecified; Z87.442 Personal history of urinary calculi; F17.210 Nicotine dependence, cigarettes, uncomplicated
CPT/HCPCS: 36415; 80053; 81001; 83690; 85025; 96361; 96374; 96375; 99284; A9270; J1630; J2270; J7030

== ENCOUNTER 2020-04-28 22:48 | Emergency (ER) | payer OTHER, SELFPAY ==
--- NOTE | ~2020-04-28 | CT_ITS ---
EXAMINATION: CT abdomen pelvis w con DATE: 04/29/2020 00:00 INDICATION: Epigastric abdominal pain. TECHNIQUE: Computed tomography (CT) of the abdomen and pelvis was performed with 100 mL Omnipaque 350 intravenous contrast. Automated exposure control and iterative reconstruction technique were employe d. The dose-length product was 311.65 mGy-cm. COMPARISON: CT abdomen and pelvis 04/19/2020 FINDINGS: The visualized portions of the lung bases demonstrate minimal atelectasis. No pleural effus ion. The heart size is normal. No pericardial effusion. The liver is normal. There are changes of cho lecystectomy. The spleen, pancreas, adrenal glands, and kidneys are normal. The stomach is distended. There are no dilated loops of bowel. The appendix is normal. There is a right inguinal hernia contai hayder fat. There are no pathologically enlarged lymph nodes. There is no free intraperitoneal fluid. T he bones are unremarkable. IMPRESSION: 1. Right inguinal hernia containing fat. Reviewed, dictated and finalized at location [facility]. [facility] [employer]
[2020-04-28 22:53] VITALS: BP 151/107; PULSE 91; RESP 18; TEMP 36.8; O2SAT 100
[2020-04-28] MEDS: BELLADONNA ALK/PHENOB ELIX 10 ML, MAG HYDROX/ALUMINUM HYD/SIMETH 30 ML, LIDOCAINE HCL 2... PO (23:19)
[2020-04-28] MEDS: PANTOPRAZOLE SODIUM IV 40 MG VIAL IV PUSH (23:19)
[2020-04-28] MEDS: ONDANSETRON INJ 4 MG/2 ML VIAL IV PUSH (23:19)
[2020-04-28 23:26] LABS: Basophils Absolute Auto 0.1 K/mm3 (0.0-0.1); Basophils Percent Auto 0.3 % (0.2-1.2); Eosinophils Absolute Auto 0.2 K/mm3 (0-0.3); Eosinophils Percent Auto 0.9 % (0-4.4); Hematocrit 39.7 % (42.0-52.0); Hemoglobin 13.3 g/dL (14.0-18.0); Immature Granulocyte Absolute 0.07 K/mm3 (0.00-0.031); Immature Granulocyte Percent A 0.4 % (0-0.5); Lymphocytes Absolute Auto 2.37 K/mm3 (0.9-3.2); Lymphocytes Percent Auto 13.5 % (18.3-44.2); Mean Corpuscular HGB Conc 33.5 g/dl (32-36); Mean Corpuscular Hemoglobin 30.2 pg (26-34); Mean Corpuscular Volume 90.2 fl (80-100); Mean Platelet Volume 9.7 fl (7.4-10.4); Monocytes Absolute Auto 1.5 K/mm3 (0.1-0.6); Monocytes Percent Auto 8.8 % (2.6-8.5); Neutrophils Absolute Auto 13.4 K/mm3 (1.3-6.7); Neutrophils Percent Auto 76.1 % (45.5-73.1); Platelet Count Result 299 k/mm3 (150-375); Red Cell Distribution Width 13.4 % (11.5-14.5); White Blood Count 17.6 K/mm3 (4.5-10.0)
[2020-04-28 23:39] LABS: Alanine Aminotransferase 15 U/L (4-50); Albumin Level 4.3 g/dL (3.5-5.1); Alkaline Phosphatase 88 U/L (38-126); Anion Gap 10 mmol/L (8-16); Aspartate Amino Transferase 24 U/L (17-59); Bilirubin,Total 0.3 mg/dL (0.2-1.3); Blood Urea Nitrogen 8 mg/dL (9-20); Calcium 9.3 mg/dL (8.4-10.2); Carbon Dioxide 28 mmol/L (22-30); Chloride 104 mmol/L (98-107); Estimated CRCL calculation 101 ml/min; Estimated Glomerular Filt Rate > 60; Glucose 102 mg/dL (75-110); Lipase 187 U/L (23-300); Potassium 3.8 mmol/L (3.4-5.0); Sodium 142 mmol/L (137-145)
[2020-04-28] MEDS: HYDROmorphone HCL INJ (*CRX) 1 MG/ML SYR IV PUSH (23:43)
--- NOTE | 2020-04-28 23:54 | PC.NURSE ---
Patient in CT at this time.
--- NOTE | 2020-04-29 00:03 | ED.ABDPAIN ---
HPI - Abdominal Pain General Chief Complaint: Abdominal Pain <Freddy Rogers MD - Last Filed: 04/29/20 00:06> Stated Complaint: abdominal pain <Freddy Rogers MD - Last Filed: 04/29/20 00:06> Time Seen by Provider: 04/28/20 23:07 <Freddy Rogers MD - Last Filed: 04/29/20 00:06> History of Present Illness HPI narrative: Patient is a 39-year-old male who presents ER with sudden onset epigastric pain. Patient report he came home from work in about 11 PM he started eating some cereal and he had sudden onset pain. Associated with nausea and vomiting. Patient has cyclical pain like this. He sees a GI doctor in [place] by the name of Dr. Woodard. Patient reports that he is supposed to undergo a scope sometime in the future but is unsure when. Reports he is recently been switched from omeprazole to pantoprazole. No blood in stool or emesis. Chart review shows patient has some drug-seeking behavior and is constantly asking for Dilaudid. <Freddy Rogers MD - Last Filed: 04/29/20 00:06> Related Data Home Medications: Home Medications Medication Instructions Recorded Confirmed fsfluc-[id number]-[id number] [Creon] 1 cap PO TID 03/28/20 escitalopram oxalate mg 04/19/20 pantoprazole PO 04/19/20 <Freddy Rogers MD - Last Filed: 04/29/20 00:06> Allergies/Adverse Reactions: Allergies Allergy/AdvReac Type Severity Reaction Status Date / Time doxycycline Allergy Unknown Unknown Verified 04/27/20 12:20 metoclopramide Allergy Unknown Unknown Verified 04/27/20 12:20 sulfamethoxazole Allergy Unknown Unknown Verified 04/27/20 12:20 trimethoprim Allergy Unknown Unknown Verified 04/27/20 12:20 <Freddy Rogers MD - Last Filed: 04/29/20 00:06> Review of Systems Review of Systems: All systems reviewed & are unremarkable except as noted in HPI and below <Freddy Rogers MD - Last Filed: 04/29/20 00:06> Constitutional: Constitutional: Denies chills, Denies fever(s) and Denies weakness <Freddy Rogers MD - Last Filed: 04/29/20 00:06> Cardiovascular: Cardiovascular: Denies chest pain and Denies radiating jaw, neck or arm pain <Freddy Rogers MD - Last Filed: 04/29/20 00:06> Respiratory: Respiratory: Denies cough and Denies dyspnea <Freddy Rogers MD - Last Filed: 04/29/20 00:06> Gastrointestinal: Gastrointestinal: Reports abdominal pain, Denies constipation, Denies diarrhea, Reports nausea and Reports vomiting <Freddy Rogers MD - Last Filed: 04/29/20 00:06> [facility] Past Medical History Medical History: Medical History Anxiety Colitis Cyclic vomiting syndrome Depression Gastroenteritis GERD (gastroesophageal reflux disease) Hypertension IBD (inflammatory bowel disease) Kidney stones Pancreatitis <Freddy Rogers MD - Last Filed: 04/29/20 00:06> Surgical History Surgical History: Surgical History Hx of cholecystectomy <Freddy Rogers MD - Last Filed: 04/29/20 00:06> Social History Social History: Social History Smoking packs per day: 0.5 Smoking cigarettes per day: 10.0 Smoking status: Current every day smoker Tobacco type: cigarettes Alcohol intake: never Substance use type: marijuana Gender identity (if verbalized by the patient): Male <Freddy Rogers MD - Last Filed: 04/29/20 00:06> Exam Narrative: Exam Narrative: GENERAL: Uncomfortable-appearing, well-nourished, and in no acute distress. HEAD: Normocephalic, atraumatic. ENT: Mucous membranes moist. CHEST: Clear to auscultation. No respiratory distress. HEART: Regular rate and rhythm. Normal peripheral pulses. ABDOMEN: Soft, moderate epigastric tenderness with guarding, nondistended. EXTREMITIES: Normal range of motion. No edema. SKIN: Warm, dry, no rash. NEURO: Alert and oriented x3. PSYCH
[2020-04-29] MEDS: ONDANSETRON INJ 4 MG/2 ML VIAL IV PUSH (00:56)
[2020-04-29 00:58] VITALS: BP 122/84; PULSE 80; RESP 18; O2SAT 97
== END 2020-04-29 01:06 | disposition home or self-care (01) ==
PROVIDERS: Emergency Provider Emergency Medicine
DX: R10.13 Epigastric pain (principal); R11.0 Nausea; G89.29 Other chronic pain; F41.9 Anxiety disorder, unspecified; F32.9 Major depressive disorder, single episode, unspecified; K21.9 Gastro-esophageal reflux disease without esophagitis; I10 Essential (primary) hypertension; K58.9 Irritable bowel syndrome, unspecified; Z87.442 Personal history of urinary calculi; F17.210 Nicotine dependence, cigarettes, uncomplicated
CPT/HCPCS: 36415; 74177; 80053; 83690; 85025; 96374; 96375; 99284; A9270; C9113; J1170; J2405; Q9967

== ENCOUNTER 2020-04-30 22:47 | Emergency (ER) | payer OTHER, SELFPAY ==
[2020-04-30 22:53] VITALS: BP 178/111; PULSE 96; RESP 16; TEMP 36.6; O2SAT 100
--- NOTE | 2020-04-30 23:03 | ED.GENADULT ---
HPI - General Adult General Chief complaint: Abdominal Pain Stated complaint: stomach pain, vomiting Time Seen by Provider: 04/30/20 22:53 History of Present Illness HPI narrative: Patient is a 39-year-old gentleman who presents the emergency department with chief complaint of abdominal pain nausea and vomiting. Patient has prior history of cyclic vomiting syndrome and is well-known to our emergency department and is seen here including even in the last few days. The patient states that he ate some turkey denied in dressing and states that triggered his vomiting and abdominal pain the patient was in the bathroom kneeling on the floor retching over the toilet when I entered the room. Related Data Home Medications Medication Instructions Recorded Confirmed uezbza-fnzyeqgl-xjaxmhn [Creon] 1 cap PO TID 03/28/20 escitalopram oxalate mg 04/19/20 pantoprazole PO 04/19/20 Allergies Allergy/AdvReac Type Severity Reaction Status Date / Time doxycycline Allergy Unknown Unknown Verified 04/27/20 12:20 metoclopramide Allergy Unknown Unknown Verified 04/27/20 12:20 sulfamethoxazole Allergy Unknown Unknown Verified 04/27/20 12:20 trimethoprim Allergy Unknown Unknown Verified 04/27/20 12:20 Review of Systems Review of Systems: Narrative: A 10 system review of systems was completed on the patient and is negative except for what is stated in the HPI. Nursing and ancillary documentation was reviewed. PMFSH Past Medical History Medical History Anxiety Colitis Cyclic vomiting syndrome Depression Gastroenteritis GERD (gastroesophageal reflux disease) Hypertension IBD (inflammatory bowel disease) Kidney stones Pancreatitis Surgical History Surgical History Hx of cholecystectomy Social History Social History Smoking packs per day: 0.5 Smoking cigarettes per day: 10.0 Smoking status: Current every day smoker Tobacco type: cigarettes Alcohol intake: never Substance use type: marijuana Gender identity (if verbalized by the patient): Male Exam Narrative: Exam Narrative: GENERAL: Well-appearing, well-nourished, and in no acute distress. HEAD: Normocephalic, atraumatic. EYES: PERRLA and EOMI. ENT: Nares clear, no rhinorrhea or epistaxis. Mucous membranes moist. NECK: Supple. CHEST: Clear to auscultation. No respiratory distress. HEART: Regular rate and rhythm. No murmur heard. Normal peripheral pulses. ABDOMEN: Soft, tender to palpation throughout the abdomen, no guarding or rebound, nondistended, normal active bowel sounds. EXTREMITIES: Normal range of motion. No edema. SKIN: Warm, dry, no rash. NEURO: No focal deficits. Alert and oriented x3. PSYCH: Normal mood and affect. Course Vital Signs Vital signs: Vital Signs Temperature 36.6 C 04/30/20 22:53 Pulse Rate 96 04/30/20 22:53 Respiratory Rate 16 04/30/20 22:53 Blood Pressure 178/111 H 04/30/20 22:53 Pulse Oximetry 100 04/30/20 22:53 Temperature 36.6 C 04/30/20 22:53 Pulse Rate 96 04/30/20 22:53 Respiratory Rate 16 04/30/20 22:53 Blood Pressure 178/111 H 04/30/20 22:53 Pulse Oximetry 100 04/30/20 22:53 Medical Decision Making Vital Signs Vital Signs: Vital Signs Temperature 36.6 C 04/30/20 22:53 Pulse Rate 96 04/30/20 22:53 Respiratory Rate 16 04/30/20 22:53 Blood Pressure 178/111 H 04/30/20 22:53 Pulse Oximetry 100 04/30/20 22:53 Temperature 36.6 C 04/30/20 22:53 Pulse Rate 96 04/30/20 22:53 Respiratory Rate 16 04/30/20 22:53 Blood Pressure 178/111 H 04/30/20 22:53 Pulse Oximetry 100 04/30/20 22:53 Lab Data Result diagrams: 04/30/20 23:10 04/30/20 23:09 Labs: Lab Results 04/30/20 04/30/20 Range/Units 23:09 23:10 WBC 9.9 (4.5-10.0) K/mm3
[2020-04-30] MEDS: SODIUM CHLORIDE 0.9% IV 1,000 ML 999 ML IV CONT (23:13)
[2020-04-30] MEDS: HYDROmorphone HCL INJ (*CRX) 1 MG/ML SYR IV PUSH (23:17)
[2020-04-30 23:18] LABS: Basophils Absolute Auto 0.1 K/mm3 (0.0-0.1); Basophils Percent Auto 0.5 % (0.2-1.2); Eosinophils Absolute Auto 0.2 K/mm3 (0-0.3); Eosinophils Percent Auto 1.7 % (0-4.4); Hematocrit 39.6 % (42.0-52.0); Hemoglobin 13.5 g/dL (14.0-18.0); Immature Granulocyte Absolute 0.03 K/mm3 (0.00-0.031); Immature Granulocyte Percent A 0.3 % (0-0.5); Lymphocytes Absolute Auto 3.72 K/mm3 (0.9-3.2); Lymphocytes Percent Auto 37.7 % (18.3-44.2); Mean Corpuscular HGB Conc 34.1 g/dl (32-36); Mean Corpuscular Hemoglobin 30.5 pg (26-34); Mean Corpuscular Volume 89.4 fl (80-100); Mean Platelet Volume 9.3 fl (7.4-10.4); Monocytes Absolute Auto 1.2 K/mm3 (0.1-0.6); Monocytes Percent Auto 12.5 % (2.6-8.5); Neutrophils Absolute Auto 4.7 K/mm3 (1.3-6.7); Neutrophils Percent Auto 47.3 % (45.5-73.1); Platelet Count Result 307 k/mm3 (150-375); Red Blood Count 4.43 M/mm3 (4.6-6.20); Red Cell Distribution Width 13.4 % (11.5-14.5); White Blood Count 9.9 K/mm3 (4.5-10.0)
[2020-04-30] MEDS: ONDANSETRON INJ 4 MG/2 ML VIAL IV PUSH (23:19)
[2020-04-30] MEDS: FAMOTIDINE 20 MG/2 ML VIAL IV PUSH (23:19)
[2020-04-30 23:35] LABS: Alanine Aminotransferase 15 U/L (4-50); Albumin Level 4.3 g/dL (3.5-5.1); Alkaline Phosphatase 85 U/L (38-126); Anion Gap 7 mmol/L (8-16); Aspartate Amino Transferase 29 U/L (17-59); Bilirubin,Total 0.4 mg/dL (0.2-1.3); Blood Urea Nitrogen 7 mg/dL (9-20); Calcium 9.4 mg/dL (8.4-10.2); Carbon Dioxide 30 mmol/L (22-30); Chloride 103 mmol/L (98-107); Estimated CRCL calculation 101 ml/min; Estimated Glomerular Filt Rate > 60; Glucose 107 mg/dL (75-110); Lipase 212 U/L (23-300); Potassium 3.7 mmol/L (3.4-5.0); Sodium 140 mmol/L (137-145)
== END 2020-05-01 00:23 | disposition home or self-care (01) ==
PROVIDERS: Emergency Provider Emergency Medicine
DX: R10.9 Unspecified abdominal pain (principal); G89.29 Other chronic pain; K21.9 Gastro-esophageal reflux disease without esophagitis; I10 Essential (primary) hypertension; K58.9 Irritable bowel syndrome, unspecified; F41.9 Anxiety disorder, unspecified; F32.9 Major depressive disorder, single episode, unspecified; Z87.442 Personal history of urinary calculi; F17.210 Nicotine dependence, cigarettes, uncomplicated
CPT/HCPCS: 36415; 80053; 83690; 85025; 96361; 96374; 96375; 99284; J1170; J2405; J7030

== ENCOUNTER 2020-05-03 02:36 | Emergency (ER) | payer OTHER, SELFPAY ==
[2020-05-03 02:38] VITALS: BP 151/76; PULSE 98; RESP 18; TEMP 36.5; O2SAT 100
[2020-05-03] MEDS: ONDANSETRON INJ 4 MG/2 ML VIAL (02:58)
[2020-05-03 03:06] LABS: Basophils Absolute Auto 0.1 K/mm3 (0.0-0.1); Basophils Percent Auto 0.5 % (0.2-1.2); Eosinophils Absolute Auto 0.1 K/mm3 (0-0.3); Eosinophils Percent Auto 0.9 % (0-4.4); Hematocrit 42.4 % (42.0-52.0); Hemoglobin 13.9 g/dL (14.0-18.0); Immature Granulocyte Absolute 0.08 K/mm3 (0.00-0.031); Immature Granulocyte Percent A 0.5 % (0-0.5); Lymphocytes Absolute Auto 2.98 K/mm3 (0.9-3.2); Lymphocytes Percent Auto 18.3 % (18.3-44.2); Mean Corpuscular HGB Conc 32.8 g/dl (32-36); Mean Corpuscular Volume 91.6 fl (80-100); Mean Platelet Volume 10.1 fl (7.4-10.4); Monocytes Absolute Auto 1.8 K/mm3 (0.1-0.6); Monocytes Percent Auto 11.1 % (2.6-8.5); Neutrophils Absolute Auto 11.2 K/mm3 (1.3-6.7); Neutrophils Percent Auto 68.7 % (45.5-73.1); Platelet Count Result 341 k/mm3 (150-375); Red Blood Count 4.63 M/mm3 (4.6-6.20); Red Cell Distribution Width 13.7 % (11.5-14.5); White Blood Count 16.3 K/mm3 (4.5-10.0)
--- NOTE | 2020-05-03 03:07 | ED.ABDPAIN ---
HPI - Abdominal Pain General Chief Complaint: Abdominal Pain Stated Complaint: abd pain, vomiting Time Seen by Provider: 05/03/20 03:06 Source: patient Mode of arrival: ambulatory Limitations: no limitations History of Present Illness HPI narrative: Patient is a 39-year-old male with a history of cyclical vomiting, pancreatitis who presents for evaluation of upper abdominal pain, nausea and vomiting. Patient states he ate an egg McMuffin today and then drank a soda at work tonight which he believes set off his symptoms. Pain is sharp, stabbing in nature in the upper abdomen without chest pain or shortness of breath. No fever or chills. Patient has had around 10 visits to our emergency department this month. He denies any alcohol use or drug use. He follows with Dr. Woodard, gastroenterology. He states he has an appointment with him in May. Related Data Home Medications Medication Instructions Recorded Confirmed [id number]-[id number]-[id number] [Creon] 1 cap PO TID 03/28/20 escitalopram oxalate mg 04/19/20 pantoprazole PO 04/19/20 Allergies Allergy/AdvReac Type Severity Reaction Status Date / Time doxycycline Allergy Unknown Unknown Verified 05/03/20 02:41 metoclopramide Allergy Unknown Unknown Verified 05/03/20 02:41 sulfamethoxazole Allergy Unknown Unknown Verified 05/03/20 02:41 trimethoprim Allergy Unknown Unknown Verified 05/03/20 02:41 Review of Systems Review of Systems: Narrative: CONSTITUTIONAL: Denies fever, chills, or sweats. EYES: Denies visual changes, redness, or discharge. ENT: Denies rhinorrhea, congestion, sore throat, or otalgia. CARDIOVASCULAR: Denies chest pain, palpitations, or edema. RESPIRATORY: Denies cough or dyspnea. GASTROINTESTINAL: Reports upper abdominal pain, nausea and vomiting GENITOURINARY: Denies dysuria or hematuria. SKIN: Denies rash or itching. MUSCULOSKELETAL: Denies back pain, joint pain, or myalgia. NEUROLOGIC: Denies headache, numbness, or weakness. [facility] Past Medical History Medical History Anxiety Colitis Cyclic vomiting syndrome Depression Gastroenteritis GERD (gastroesophageal reflux disease) Hypertension IBD (inflammatory bowel disease) Kidney stones Pancreatitis Surgical History Surgical History Hx of cholecystectomy Social History Social History Smoking packs per day: 0.5 Smoking cigarettes per day: 10.0 Smoking status: Current every day smoker Tobacco type: cigarettes Alcohol intake: never Substance use type: marijuana Gender identity (if verbalized by the patient): Male Sexual Orientation (if Verbalized by the Patient): Straight or Heterosexual Exam Narrative: Exam Narrative: GENERAL: Awake, alert, conversant, uncomfortable appearing HEAD: Normocephalic, atraumatic. EYES: PERRLA and EOMI. ENT: Nares clear, no rhinorrhea or epistaxis. Mucous membranes moist. NECK: Supple. CHEST: No respiratory distress, breathing even and non labored HEART: Regular rate, sinus rhythm ABDOMEN:Non distended, mild tenderness in the epigastrium, no rebound or guarding EXTREMITIES: Normal range of motion. No edema. SKIN: Warm, dry, no rash. NEURO:No focal deficits. Alert and oriented x3 Course Vital Signs Vital signs: Vital Signs Temperature 36.5 C 05/03/20 02:38 Pulse Rate 98 05/03/20 02:38 Respiratory Rate 18 05/03/20 02:38 Blood Pressure 151/76 H 05/03/20 02:38 Pulse Oximetry 100 05/03/20 02:38 Temperature 36.5 C 05/03/20 02:38 Pulse Rate 98 05/03/20 02:38 Respiratory Rate 18 05/03/20 02:38 Blood Pressure 151/76 H 05/03/20 02:38 Pulse Oximetry 100 05/03/20 02:38 MDM - Abdominal Pain MDM Narrative Medical decision making narrative: Patient presented for evaluation of recurrent upper abdominal pain and vomiting. The time of assessment, ABCs are int
[2020-05-03 03:17] LABS: Alanine Aminotransferase 17 U/L (4-50); Albumin Level 4.5 g/dL (3.5-5.1); Alkaline Phosphatase 82 U/L (38-126); Anion Gap 7 mmol/L (8-16); Aspartate Amino Transferase 27 U/L (17-59); Bilirubin,Total 0.4 mg/dL (0.2-1.3); Blood Urea Nitrogen 5 mg/dL (9-20); Calcium 9.4 mg/dL (8.4-10.2); Carbon Dioxide 31 mmol/L (22-30); Chloride 102 mmol/L (98-107); Estimated CRCL calculation 101 ml/min; Estimated Glomerular Filt Rate > 60; Glucose 103 mg/dL (75-110); Lipase 333 U/L (23-300); Sodium 140 mmol/L (137-145)
[2020-05-03] MEDS: FAMOTIDINE 20 MG/2 ML VIAL IV PUSH (03:58)
[2020-05-03] MEDS: diphenhydrAMINE HCl INJ 50 MG/ML VIAL 25 MG IV PUSH (03:58)
[2020-05-03] MEDS: MORPHINE SULFATE (*CRX) 4 MG/ML INJ IV PUSH (03:58)
[2020-05-03] MEDS: HALOPERIDOL LACTATE 5 MG/ML VIAL 2.5 MG IV PUSH (03:59)
[2020-05-03 04:53] VITALS: BP 147/70; PULSE 90; RESP 15; O2SAT 99
== END 2020-05-03 05:01 | disposition home or self-care (01) ==
PROVIDERS: Emergency Provider Emergency Medicine; PCP Family Medicine
DX: R11.15 Cyclical vomiting syndrome unrelated to migraine (principal); F41.9 Anxiety disorder, unspecified; F32.9 Major depressive disorder, single episode, unspecified; K21.9 Gastro-esophageal reflux disease without esophagitis; I10 Essential (primary) hypertension; K58.9 Irritable bowel syndrome, unspecified; Z87.442 Personal history of urinary calculi; F17.210 Nicotine dependence, cigarettes, uncomplicated
CPT/HCPCS: 36415; 80053; 83690; 85025; 96374; 96375; 99284; J1200; J1630; J2270; J2405

== ENCOUNTER 2020-05-06 03:49 | Emergency (ER) | payer OTHER, SELFPAY ==
[2020-05-06 03:54] VITALS: BP 166/101; PULSE 93; RESP 20; TEMP 36.7; O2SAT 99
[2020-05-06 04:31] LABS: Basophils Absolute Auto 0.1 K/mm3 (0.0-0.1); Basophils Percent Auto 0.4 % (0.2-1.2); Eosinophils Absolute Auto 0.1 K/mm3 (0-0.3); Eosinophils Percent Auto 0.7 % (0-4.4); Hematocrit 37.3 % (42.0-52.0); Hemoglobin 12.6 g/dL (14.0-18.0); Immature Granulocyte Absolute 0.05 K/mm3 (0.00-0.031); Immature Granulocyte Percent A 0.4 % (0-0.5); Lymphocytes Absolute Auto 2.06 K/mm3 (0.9-3.2); Lymphocytes Percent Auto 15.2 % (18.3-44.2); Mean Corpuscular HGB Conc 33.8 g/dl (32-36); Mean Corpuscular Hemoglobin 30.5 pg (26-34); Mean Corpuscular Volume 90.3 fl (80-100); Mean Platelet Volume 9.9 fl (7.4-10.4); Monocytes Absolute Auto 1.3 K/mm3 (0.1-0.6); Monocytes Percent Auto 9.8 % (2.6-8.5); Neutrophils Percent Auto 73.5 % (45.5-73.1); Platelet Count Result 305 k/mm3 (150-375); Red Blood Count 4.13 M/mm3 (4.6-6.20); Red Cell Distribution Width 13.6 % (11.5-14.5); White Blood Count 13.6 K/mm3 (4.5-10.0)
--- NOTE | 2020-05-06 04:37 | ED.GENADULT ---
HPI - General Adult General Chief complaint: Abdominal Pain Stated complaint: Abd pain, n/v Time Seen by Provider: 05/06/20 03:52 Source: RN notes reviewed History of Present Illness HPI narrative: Patient presents emergency department from home for abdominal pain. Patient states symptoms began earlier this evening after drank some juice. He states abdominal pain throughout the epigastric region described as a stomach locking up on him he states numerous episodes of nausea and vomiting. Patient also states he has had some loose bowel movements over the past 2 days he denies any fevers or chills chest pain shortness of breath or any other symptoms Related Data Home Medications Medication Instructions Recorded Confirmed kprwat-azakkzhn-rgssipl [Creon] 1 cap PO TID 03/28/20 escitalopram oxalate mg 04/19/20 pantoprazole PO 04/19/20 ondansetron 05/06/20 Allergies Allergy/AdvReac Type Severity Reaction Status Date / Time doxycycline Allergy Unknown Unknown Verified 05/06/20 03:57 metoclopramide Allergy Unknown Unknown Verified 05/06/20 03:57 sulfamethoxazole Allergy Unknown Unknown Verified 05/06/20 03:57 trimethoprim Allergy Unknown Unknown Verified 05/06/20 03:57 Review of Systems Review of Systems: Narrative: Gen.: Denies fevers or chills ENT: Denies congestion Respiratory: Denies shortness of breath or cough CV: Denies chest pain or palpitations GI: See HPI denies burning, urgency, frequency or hematuria Musculoskeletal: Denies back pain or muscle pain Neuro: Denies numbness, tingling, weakness or focal weakness Skin: Denies rash Except as documented, all other systems reviewed and negative PMFSH Past Medical History Medical History Anxiety Colitis Cyclic vomiting syndrome Depression Gastroenteritis GERD (gastroesophageal reflux disease) Hypertension IBD (inflammatory bowel disease) Kidney stones Pancreatitis Surgical History Surgical History Hx of cholecystectomy Social History Social History Smoking packs per day: 0.5 Smoking cigarettes per day: 10.0 Smoking status: Current every day smoker Tobacco type: cigarettes Alcohol intake: never Substance use type: marijuana Gender identity (if verbalized by the patient): Male Exam Narrative: Exam Narrative: APPEARANCE: No acute distress, nontoxic, resting in bed HEENT: Normocephalic, atraumatic, OMM RESPIRATORY: No respiratory distress, clear to auscultation bilaterally with no rhonchi wheezing or rales CARDIOVASCULAR: RRR s murmur ABDOMINAL: Soft, nondistended diffusely tender to palpation no rebound or guarding MUSCULOSKELETAl: Moves all extremities. No clubbing, cyanosis or edema. NEURO: Awake and alert. Following commands, speech normal, no focal deficits SKIN:: Warm, dry. Normal Color PSYCHIATRIC: Normal affect/mood Course Course Emergency Course: Reviewed old records the patient has been seen numerous times for the same complaint with history of cyclic vomiting syndrome patient has chronic leukocytosis felt likely secondary to cyclic vomiting syndrome. Has had 2 CT scans this month both showing no acute process. Patient is followed by Dr. Woodard for GI states he has nausea medication at home Patient states he is feeling much better this time ready for discharge Discussed with patient results of workup and diagnosis. Discussed need for follow-up with primary care, proper use of medication, and reasons to return to the emergency department. Patient understands and agrees to current treatment plan Vital Signs Vital signs: Vital Signs Temperature 98.1 F 05/06/20 03:54 Pulse Rate 93 05/06/20 03:54 Respiratory Rate 20 05/06/20 03:54 Blood Pressure 166/101 H 05/06/20 03:54 Pulse Oximetry 99 05/06/20 03:54 Temperature 98.1 F 05/06/20 03:54 Pulse Ra
[2020-05-06] MEDS: HYDROmorphone HCL INJ (*CRX) 1 MG/ML SYR IV PUSH (04:40)
[2020-05-06] MEDS: SODIUM CHLORIDE 0.9% IV 1,000 ML 999 ML IV CONT (04:40)
[2020-05-06] MEDS: FAMOTIDINE 20 MG/2 ML VIAL IV PUSH (04:40)
[2020-05-06] MEDS: ONDANSETRON INJ 4 MG/2 ML VIAL IV PUSH (04:40)
[2020-05-06 04:48] LABS: Alanine Aminotransferase 16 U/L (4-50); Albumin Level 3.9 g/dL (3.5-5.1); Alkaline Phosphatase 78 U/L (38-126); Anion Gap 8 mmol/L (8-16); Aspartate Amino Transferase 32 U/L (17-59); Bilirubin,Total 0.4 mg/dL (0.2-1.3); Blood Urea Nitrogen 10 mg/dL (9-20); Calcium 9.3 mg/dL (8.4-10.2); Carbon Dioxide 30 mmol/L (22-30); Chloride 103 mmol/L (98-107); Estimated CRCL calculation 113 ml/min; Estimated Glomerular Filt Rate > 60; Glucose 109 mg/dL (75-110); Lipase 107 U/L (23-300); Potassium 3.6 mmol/L (3.4-5.0); Sodium 141 mmol/L (137-145)
[2020-05-06 05:37] VITALS: BP 118/79; PULSE 88; RESP 16; O2SAT 100
== END 2020-05-06 05:39 | disposition home or self-care (01) ==
PROVIDERS: Emergency Provider Emergency Medicine
DX: R10.13 Epigastric pain (principal); R11.2 Nausea with vomiting, unspecified; F41.9 Anxiety disorder, unspecified; F32.9 Major depressive disorder, single episode, unspecified; K21.9 Gastro-esophageal reflux disease without esophagitis; I10 Essential (primary) hypertension; K58.9 Irritable bowel syndrome, unspecified; Z87.442 Personal history of urinary calculi; F17.210 Nicotine dependence, cigarettes, uncomplicated
CPT/HCPCS: 36415; 80053; 83690; 85025; 96360; 96374; 96375; 99284; J1170; J2405; J7030

== ENCOUNTER 2020-05-26 21:49 | Emergency (ER) | payer OTHER, SELFPAY ==
[2020-05-26] VITALS (8 sets, daily range): BP systolic 110–144; BP diastolic 70–88; PULSE 68–86; RESP 18; TEMP 36.9; O2SAT 98–100
--- NOTE | 2020-05-26 22:15 | ED.ABDPAIN ---
HPI - Abdominal Pain General Chief Complaint: Abdominal Pain Stated Complaint: stomach pain and vomiting since eating dinner Time Seen by Provider: 05/26/20 21:56 Source: patient Mode of arrival: ambulatory Limitations: no limitations History of Present Illness HPI narrative: This patient is a 39 year old male with history of cyclic vomiting who presents for evaluation of left upper abdominal pain. He states he developed pain as he was eating his second slice of pizza. He developed nausea and vomiting at well. He has been evaluated in ER multiple times over the past 2 months for this same pain. He reports he is taking pantoprazole for his pain. 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 He denies diarrhea, fever, chills. MD elicited complaint: abdominal pain Related Data Home Medications Medication Instructions Recorded Confirmed iczbby-idnsrhnr-eosyqnc [Creon] 1 cap PO TID 03/28/20 escitalopram oxalate mg 04/19/20 pantoprazole PO 04/19/20 ondansetron 05/06/20 Allergies Allergy/AdvReac Type Severity Reaction Status Date / Time doxycycline Allergy Unknown Unknown Verified 05/26/20 21:59 metoclopramide Allergy Unknown Unknown Verified 05/26/20 21:59 sulfamethoxazole Allergy Unknown Unknown Verified 05/26/20 21:59 trimethoprim Allergy Unknown Unknown Verified 05/26/20 21:59 Review of Systems Review of Systems: All systems reviewed & are unremarkable except as noted in HPI and below Constitutional: Constitutional: Denies chills and Denies fever(s) Cardiovascular: Cardiovascular: Denies chest pain Respiratory: Respiratory: Denies cough and Denies dyspnea Gastrointestinal: Gastrointestinal: Reports abdominal pain, Denies diarrhea, Reports nausea and Reports vomiting Genitourinary: Genitourinary: Denies hematuria and Denies oliguria Musculoskeletal: Musculoskeletal: Denies back pain [facility] Past Medical History Medical History Anxiety Colitis Cyclic vomiting syndrome Depression Gastroenteritis GERD (gastroesophageal reflux disease) Hypertension IBD (inflammatory bowel disease) Kidney stones Pancreatitis Surgical History Surgical History Hx of cholecystectomy Social History Social History Smoking packs per day: 0.5 Smoking cigarettes per day: 10.0 Smoking status: Current every day smoker Tobacco type: cigarettes Alcohol intake: never Substance use type: marijuana Gender identity (if verbalized by the patient): Male Exam Const: General: alert Orientation/consciousness: patient oriented x3 Eyes: EOM: EOMs intact bilaterally Resp: Effort & Inspection: normal respiratory effort and no retractions Auscultation: clear to auscultation bilaterally Cardio: Rate: regular rate Rhythm: regular rhythm Heart sounds: no murmurs GI: GI Palp: Yes Soft to palpation, Yes Tenderness to palpation present (GI) (epigastric, LUQ), No Guarding due to palpation present (GI) and No Rigid due to palpation Auscultation: normal bowel sounds Back/Spine/Pelvis: Back: no CVA tenderness Skin: General skin exam: normal color Rashes: no rashes Neuro: General: patient oriented x3 and moves all extremities Psych: Mental Status: mental status grossly normal Affect: normal affect Course Reevaluation(s) Reevaluation #1: Patient states he feels better. He has mild leukocytosis but this is chronic and lower than last visit. He has mildly elevated lipase that is chronic. I reviewed last ED . He has had at least 2 CTs in past month . This appears to be his chronic issues so no CT to be performed today. He was able to tolerate PO Date: 05/27/20 Time: 01:53 Vital Signs Vital signs: Vital Signs Temperature 98.4 F 05/26/20 21:51 Pulse Rate 86 05/26/20 21:51 Respiratory R
[2020-05-26] MEDS: ONDANSETRON HCL ODT 4 MG TABLET PO (22:18)
[2020-05-26] MEDS: DICYCLOMINE HCL INJ 20 MG/2 ML VIAL IM (22:18)
[2020-05-26 22:29] LABS: Basophils Percent Auto 0.3 % (0.2-1.2); Eosinophils Absolute Auto 0.2 K/mm3 (0-0.3); Eosinophils Percent Auto 1.6 % (0-4.4); Hematocrit 39.9 % (42.0-52.0); Hemoglobin 13.6 g/dL (14.0-18.0); Immature Granulocyte Absolute 0.03 K/mm3 (0.00-0.031); Immature Granulocyte Percent A 0.3 % (0-0.5); Lymphocytes Percent Auto 26.2 % (18.3-44.2); Mean Corpuscular HGB Conc 34.1 g/dl (32-36); Mean Corpuscular Hemoglobin 29.8 pg (26-34); Mean Corpuscular Volume 87.3 fl (80-100); Monocytes Absolute Auto 1.1 K/mm3 (0.1-0.6); Monocytes Percent Auto 9.2 % (2.6-8.5); Neutrophils Absolute Auto 7.2 K/mm3 (1.3-6.7); Neutrophils Percent Auto 62.4 % (45.5-73.1); Platelet Count Result 281 k/mm3 (150-375); Red Blood Count 4.57 M/mm3 (4.6-6.20); Red Cell Distribution Width 13.5 % (11.5-14.5); White Blood Count 11.5 K/mm3 (4.5-10.0)
--- NOTE | 2020-05-26 22:43 | ECG_ITS ---
Measurements Intervals [place] Rate: 70 P: -2 NC: 113 QRS: 39 QRSD: 99 T: 42 QT: 366 QTc: 396 Interpretive Statements SINUS RHYTHM WITH SHORT NC INTERVAL BORDERLINE ECG Electronically Signed On 05-27-2020 7:15:48 DOUBLE HEAD MACHINE OPERATOR by Bebo Stark D.O.
[2020-05-26] MEDS: LACTATED RINGERS 1,000 ML 999 ML IV CONT (22:46)
[2020-05-26 23:05] LABS: Alanine Aminotransferase 15 U/L (4-50); Albumin Level 4.3 g/dL (3.5-5.1); Alkaline Phosphatase 97 U/L (38-126); Anion Gap 8 mmol/L (8-16); Aspartate Amino Transferase 24 U/L (17-59); Bilirubin,Total 0.5 mg/dL (0.2-1.3); Blood Urea Nitrogen 12 mg/dL (9-20); Calcium 9.4 mg/dL (8.4-10.2); Carbon Dioxide 27 mmol/L (22-30); Chloride 106 mmol/L (98-107); Estimated CRCL calculation 101 ml/min; Estimated Glomerular Filt Rate > 60; Glucose 104 mg/dL (75-110); Lipase 435 U/L (23-300); Potassium 3.7 mmol/L (3.4-5.0); Sodium 141 mmol/L (137-145)
--- NOTE | 2020-05-26 23:24 | PC.NURSE ---
Patient requesting I need some pepcid and dilaudid please, that's the only thing that will help my pain. This nurse stated the ERP will be informed.
[2020-05-26] MEDS: FAMOTIDINE 20 MG/2 ML VIAL IV PUSH (23:42)
[2020-05-26] MEDS: HALOPERIDOL LACTATE 5 MG/ML VIAL IV PUSH (23:42)
[2020-05-27] VITALS: O2SAT 99
[2020-05-27 00:01] VITALS: BP 100/62; O2SAT 98
[2020-05-27 00:15] VITALS: O2SAT 98
[2020-05-27 00:30] VITALS: O2SAT 100
[2020-05-27 00:31] VITALS: BP 101/75; O2SAT 100
[2020-05-27 02:09] VITALS: BP 115/75; PULSE 82; RESP 17; O2SAT 100
== END 2020-05-27 02:10 | disposition home or self-care (01) ==
PROVIDERS: Emergency Provider General Practice; PCP Family Medicine
DX: R10.13 Epigastric pain (principal); K21.9 Gastro-esophageal reflux disease without esophagitis; I10 Essential (primary) hypertension; K58.9 Irritable bowel syndrome, unspecified; F41.9 Anxiety disorder, unspecified; F32.9 Major depressive disorder, single episode, unspecified; Z87.442 Personal history of urinary calculi; F17.210 Nicotine dependence, cigarettes, uncomplicated; R94.31 Abnormal electrocardiogram [ECG] [EKG]
CPT/HCPCS: 36415; 80053; 83690; 85025; 93005; 96361; 96372; 96374; 96375; 99284; A9270; J0500; J1630; J7120

== ENCOUNTER 2020-05-29 14:54 | Emergency (ER) | payer OTHER, SELFPAY ==
--- NOTE | ~2020-05-29 | XR_ITS ---
EXAMINATION: XR chest 2V DATE: 05/29/2020 17:07 INDICATION: Upper abdominal pain, hypertension TECHNIQUE: PA and lateral views of the chest are obtained. COMPARISON: None available FINDINGS: The lungs are free of acute opacities. There is no pleural effusion or pneumothorax. The ca rdiomediastinal silhouette is normal. Cholecystectomy clips are noted. IMPRESSION: 1. No acute cardiopulmonary abnormality. Reviewed, dictated and finalized at location A. [employer] MARKET[employer] DIRECTOR
[2020-05-29 15:40] VITALS: BP 175/101; PULSE 106; RESP 20; TEMP 36.1; O2SAT 99
[2020-05-29 15:55] LABS: Basophils Absolute Auto 0.1 K/mm3 (0.0-0.1); Basophils Percent Auto 0.3 % (0.2-1.2); Eosinophils Absolute Auto 0.1 K/mm3 (0-0.3); Eosinophils Percent Auto 0.5 % (0-4.4); Hematocrit 39.1 % (42.0-52.0); Hemoglobin 12.9 g/dL (14.0-18.0); Immature Granulocyte Percent A 0.5 % (0-0.5); Lymphocytes Absolute Auto 1.73 K/mm3 (0.9-3.2); Lymphocytes Percent Auto 9.1 % (18.3-44.2); Mean Corpuscular Hemoglobin 29.2 pg (26-34); Mean Corpuscular Volume 88.5 fl (80-100); Monocytes Absolute Auto 1.5 K/mm3 (0.1-0.6); Neutrophils Absolute Auto 15.5 K/mm3 (1.3-6.7); Neutrophils Percent Auto 81.6 % (45.5-73.1); Platelet Count Result 284 k/mm3 (150-375); Red Blood Count 4.42 M/mm3 (4.6-6.20); Red Cell Distribution Width 13.5 % (11.5-14.5); White Blood Count 19.1 K/mm3 (4.5-10.0)
--- NOTE | 2020-05-29 16:05 | ED.ABDPAIN ---
HPI - Abdominal Pain General Chief Complaint: Abdominal Pain Stated Complaint: abd pain, vomiting Time Seen by Provider: 05/29/20 16:05 Source: patient Mode of arrival: ambulatory Limitations: no limitations History of Present Illness HPI narrative: Patient is a 39-year-old male who presents complaining of abdominal pain nausea and vomiting starting approximately [address] ago [address] his [address] to work. He reports generalized abdominal cramping and vomiting clear yellow at this time. Patient is followed by Dr. Woodard for GI. Has had multiple CT scans in the past month. Patient states when I get like this Pepcid and Dilaudid always work . Patient denies taking home meds for vomiting prior to arrival. Patient has a history of cyclical vomiting and is seen in the ED frequently for same complaints. MD elicited complaint: abdominal pain Related Data Home Medications Medication Instructions Recorded Confirmed [id number] [Creon] 1 cap PO TID 03/28/20 escitalopram oxalate mg 04/19/20 pantoprazole PO 04/19/20 ondansetron 05/06/20 Allergies Allergy/AdvReac Type Severity Reaction Status Date / Time doxycycline Allergy Unknown Unknown Verified 05/26/20 21:59 metoclopramide Allergy Unknown Unknown Verified 05/26/20 21:59 sulfamethoxazole Allergy Unknown Unknown Verified 05/26/20 21:59 trimethoprim Allergy Unknown Unknown Verified 05/26/20 21:59 Review of Systems Review of Systems: Narrative: CONSTITUTIONAL: Denies fever, chills, or sweats. EYES: Denies visual changes, redness, or discharge. ENT: Denies rhinorrhea, congestion, sore throat, or otalgia. CARDIOVASCULAR: Denies chest pain, palpitations, or edema. RESPIRATORY: Denies cough or dyspnea. GASTROINTESTINAL: Reports abdominal pain, nausea, and vomiting. GENITOURINARY: Denies dysuria or hematuria. SKIN: Denies rash or itching. MUSCULOSKELETAL: Denies back pain, joint pain, or myalgia. NEUROLOGIC: Denies headache, numbness, dizziness, or weakness. PSYCHIATRIC: Denies anxiety or depression. [facility] Past Medical History Medical History Anxiety Colitis Cyclic vomiting syndrome Depression Gastroenteritis GERD (gastroesophageal reflux disease) Hypertension IBD (inflammatory bowel disease) Kidney stones Pancreatitis Surgical History Surgical History Hx of cholecystectomy Social History Social History Smoking packs per day: 0.5 Smoking cigarettes per day: 10.0 Smoking status: Current every day smoker Tobacco type: cigarettes Alcohol intake: never Substance use type: marijuana Gender identity (if verbalized by the patient): Male Comments At the time of signature, I have reviewed and agree with nursing past medical, surgical, social, and family history unless otherwise noted. Please see nursing chart for further information. There is no relevant family history pertinent to the presenting complaint. Exam Narrative: Exam Narrative: GENERAL: Diaphoretic, dry heaving but in no acute distress. HEAD: Normocephalic, atraumatic. EYES: No redness or drainage. ENT: Mucous membranes pink and moist. CHEST: No respiratory distress. Clear to auscultation. HEART: Regular rate and rhythm. GI: Soft without distention. Generalized tenderness with palpation. Bowel sounds normal in all quadrants. MUSCULOSKELETAL: No bony tenderness. EXTREMITIES: Normal range of motion. SKIN: Warm, dry, no rash. NEURO: No focal deficits. Alert and oriented x3. Gait steady. PSYCH: Normal affect. No signs of depression or anxiety. Course Vital Signs Vital signs: Vital Signs Temperature 36.1 C L 05/29/20 15:40 Pulse Rate 106 H 05/29/20 15:40 Respiratory Rate 20 05/29/20 15:40 Blood Pressure 175/101 H 05/29/20 15:40 Pulse Oximetry 99 05/29/20 15:40 Temperature 36.1 C L 05/29/20 15:40
[2020-05-29 16:07] LABS: Alanine Aminotransferase 15 U/L (4-50); Albumin Level 4.4 g/dL (3.5-5.1); Alkaline Phosphatase 82 U/L (38-126); Anion Gap 8 mmol/L (8-16); Aspartate Amino Transferase 23 U/L (17-59); Bilirubin,Total 0.3 mg/dL (0.2-1.3); Blood Urea Nitrogen 7 mg/dL (9-20); Calcium 9.4 mg/dL (8.4-10.2); Carbon Dioxide 28 mmol/L (22-30); Chloride 103 mmol/L (98-107); Estimated CRCL calculation 113 ml/min; Estimated Glomerular Filt Rate > 60; Glucose 115 mg/dL (75-110); Lipase 99 U/L (23-300); Potassium 3.7 mmol/L (3.4-5.0); Sodium 139 mmol/L (137-145)
--- NOTE | 2020-05-29 16:25 | PC.NURSE ---
PT TO RESTROOM W/ STEADY GAIT, THIS RN REQUESTED U/A SAMPLE, PT STATES I DON'T NEED TO PEE RIGHT NOW, I NEED TO PUKE. PT CLOSED DOOR.
[2020-05-29 16:54] VITALS: BP 150/90; PULSE 101; RESP 21; O2SAT 99
[2020-05-29] MEDS: SODIUM CHLORIDE 0.9% IV 1,000 ML 999 ML IV CONT (16:54)
[2020-05-29] MEDS: ONDANSETRON INJ 4 MG/2 ML VIAL IV PUSH (16:54)
[2020-05-29] MEDS: DICYCLOMINE HCL INJ 20 MG/2 ML VIAL IM (16:54)
[2020-05-29] MEDS: FAMOTIDINE 20 MG/2 ML VIAL IV PUSH (16:54)
[2020-05-29 18:15] LABS: Add Urine Microscopic? YES; Amorphous Sediment Urine Few; Appearance Urine Clear (Clear); Bacteria Urine Trace /hpf; Bilirubin Urine Negative (Negative); Blood Urine Negative (Negative); Color Urine Yellow (Yellow); Glucose Urine UA Negative (Negative); Ketones Urine 1+ mg/dL (Negative); Leukocyte Esterase Ur Negative LEU/UL (Negative); Mucus Urine Rare /lpf; Nitrate Urine Negative (Negative); Protein Urine Negative (Negative); RBC Urine 0-2 /hpf (0-2); Specific Grav Ur 1.014 (1.001-1.035); Squamous Epithelial Cell Urine Rare /hpf (Few); Urobilinogen Urine Negative mg/dL (<2.0); WBC Urine 0-3 /hpf
[2020-05-29 18:27] VITALS: BP 155/97; PULSE 91; RESP 17; O2SAT 97
[2020-05-29 18:43] VITALS: BP 154/82; PULSE 87; RESP 19; O2SAT 97
== END 2020-05-29 18:56 | disposition home or self-care (01) ==
PROVIDERS: Emergency Medicine; Emergency Provider Nurse Practitioner; PCP Family Medicine
DX: R10.9 Unspecified abdominal pain (principal); Z76.5 Malingerer [conscious simulation]
CPT/HCPCS: 36415; 71046; 80053; 81001; 83690; 85025; 96361; 96365; 96372; 96375; 99284; J0131; J0500; J2405; J7030

== ENCOUNTER 2020-06-03 15:01 | Emergency (ER) | payer OTHER, SELFPAY ==
--- NOTE | ~2020-06-03 | CT_ITS ---
EXAMINATION: CT abdomen pelvis w con EXAM DATE: 06/03/2020 17:19 INDICATION: Pancreatitis. Epigastric pain. TECHNIQUE: Spiral CT of the abdomen and pelvis was performed following intravenous injection of 100 m L Omnipaque 350. Axial, coronal and sagittal images were reviewed. The dose-length product (DLP) fo r this examination was 349.33 mGy-cm. The exposure was tailored according to patient size (auto mA e xposure control), and iterative reconstruction (ASIR) was used as additional dose reduction technique . Comparison is made to prior examination from 04/28/2020. FINDINGS: The liver, spleen, adrenal glands and pancreas are unremarkable. There are cholecystectomy clips. Portal and splenic veins are patent. Kidneys enhance symmetrically. There is no hydronephr osis. The prostate is unremarkable. The bladder is unremarkable. There is no retroperitoneal or p elvic lymphadenopathy. The appendix is normal. The stomach and small bowel are unremarkable. Equivocal transverse colonic colitis. No free intraperitoneal gas. The heart is normal in size. There are no pericardial or p leural effusions. The lung bases are unremarkable. The bones are unremarkable. IMPRESSION: 1. Equivocal transverse colonic colitis, versus under distention. 2. Cholecystectomy. Reviewed, dictated and finalized at location A. O NARRATOR
[2020-06-03 15:03] VITALS: BP 167/114; PULSE 92; RESP 18; TEMP 36.1; O2SAT 100
[2020-06-03 15:39] LABS: Basophils Absolute Auto 0.1 K/mm3 (0.0-0.1); Basophils Percent Auto 0.4 % (0.2-1.2); Eosinophils Absolute Auto 0.2 K/mm3 (0-0.3); Eosinophils Percent Auto 1.2 % (0-4.4); Hematocrit 41.3 % (42.0-52.0); Hemoglobin 13.9 g/dL (14.0-18.0); Immature Granulocyte Absolute 0.07 K/mm3 (0.00-0.031); Immature Granulocyte Percent A 0.5 % (0-0.5); Lymphocytes Absolute Auto 2.14 K/mm3 (0.9-3.2); Lymphocytes Percent Auto 15.7 % (18.3-44.2); Mean Corpuscular HGB Conc 33.7 g/dl (32-36); Mean Corpuscular Hemoglobin 29.3 pg (26-34); Mean Corpuscular Volume 86.9 fl (80-100); Mean Platelet Volume 9.9 fl (7.4-10.4); Monocytes Absolute Auto 1.2 K/mm3 (0.1-0.6); Monocytes Percent Auto 9.1 % (2.6-8.5); Neutrophils Percent Auto 73.1 % (45.5-73.1); Platelet Count Result 313 k/mm3 (150-375); Red Blood Count 4.75 M/mm3 (4.6-6.20); Red Cell Distribution Width 13.9 % (11.5-14.5); White Blood Count 13.7 K/mm3 (4.5-10.0)
[2020-06-03] MEDS: ONDANSETRON INJ 4 MG/2 ML VIAL 8 MG IV PUSH (15:39)
[2020-06-03] MEDS: FAMOTIDINE 20 MG/2 ML VIAL 40 MG IV PUSH (15:39)
[2020-06-03] MEDS: SODIUM CHLORIDE 0.9% IV 1,000 ML 999 ML IV CONT (15:39)
[2020-06-03] MEDS: hydrOXYzine HCl 50 MG/ML VIAL 100 MG IM (15:42)
[2020-06-03 16:00] LABS: Alanine Aminotransferase 15 U/L (4-50); Albumin Level 4.3 g/dL (3.5-5.1); Alkaline Phosphatase 87 U/L (38-126); Anion Gap 10 mmol/L (8-16); Aspartate Amino Transferase 24 U/L (17-59); Bilirubin,Total 0.3 mg/dL (0.2-1.3); Blood Urea Nitrogen 9 mg/dL (9-20); Calcium 9.2 mg/dL (8.4-10.2); Carbon Dioxide 28 mmol/L (22-30); Chloride 101 mmol/L (98-107); Estimated CRCL calculation 113 ml/min; Estimated Glomerular Filt Rate > 60; Glucose 108 mg/dL (75-110); Lipase 131 U/L (23-300); Potassium 4.1 mmol/L (3.4-5.0); Sodium 139 mmol/L (137-145)
--- NOTE | 2020-06-03 16:44 | ED.NAVMDI ---
HPI - Nausea/Vomiting/Diarrhea General Chief complaint: Nausea/Vomiting/Diarrhea Stated complaint: n/v Time Seen by Provider: 06/03/20 15:11 Source: patient Mode of arrival: ambulatory Limitations: no limitations History of Present Illness HPI Narrative: Patient 39 years old white male presents with sudden onset of abdominal pain, epigastric, associated with nausea and vomiting. Started 2 hours prior to arrival to the emergency room. Patient is known to us with frequent emergency room visits for the same complaint. Patient reports having history of pancreatitis, and marijuana abuse. Patient denies any fever, chills, shortness of breath or chest pain. Related Data Home Medications Medication Instructions Recorded Confirmed [id number] [Creon] 1 cap PO TID 03/28/20 escitalopram oxalate mg 04/19/20 pantoprazole PO 04/19/20 ondansetron 05/06/20 Allergies Allergy/AdvReac Type Severity Reaction Status Date / Time doxycycline Allergy Unknown Unknown Verified 06/03/20 15:06 metoclopramide Allergy Unknown Unknown Verified 06/03/20 15:06 sulfamethoxazole Allergy Unknown Unknown Verified 06/03/20 15:06 trimethoprim Allergy Unknown Unknown Verified 06/03/20 15:06 Review of Systems Review of Systems: Narrative: CONSTITUTIONAL: Denies fever, chills, or sweats. EYES: Denies visual changes, redness, or discharge. ENT: Denies rhinorrhea, congestion, sore throat, or otalgia. CARDIOVASCULAR: Denies chest pain, palpitations, or edema. RESPIRATORY: Denies cough or dyspnea. GASTROINTESTINAL: Abdominal pain with nausea and vomiting GENITOURINARY: Denies dysuria or hematuria. SKIN: Denies rash or itching. MUSCULOSKELETAL: Denies back pain, joint pain, or myalgia. NEUROLOGIC: Denies headache, numbness, or weakness. PSYCHIATRIC: Denies anxiety or depression. [facility] Past Medical History Medical History Anxiety Colitis Cyclic vomiting syndrome Depression Gastroenteritis GERD (gastroesophageal reflux disease) Hypertension IBD (inflammatory bowel disease) Kidney stones Pancreatitis Surgical History Surgical History Hx of cholecystectomy Social History Social History Smoking packs per day: 0.5 Smoking cigarettes per day: 10.0 Smoking status: Current every day smoker Tobacco type: cigarettes Alcohol intake: never Substance use type: marijuana Gender identity (if verbalized by the patient): Male Exam Narrative: Exam Narrative: General appearance: Well-developed, well-nourished Skin: Normal color Head: Normocephalic, nontraumatic Eyes: Clear conjunctiva ENT: Oropharynx normal, ears normal, nose normal Neck: Supple, nontender Chest and respiratory: Airway patent, no respiratory distress, no accessory muscle use Heart: Regular rate/rhythm Abdomen: Soft, diffuse abdominal tenderness no guarding or rebound, no organomegaly, quiet bowel sounds Vascular: Normal peripheral pulses, normal capillary refill. Musculoskeletal: Normal range of motion, nontender back Neurologic: Alert and oriented ?3, QUARANTINE OFFICER is normal as tested, no gross motor deficit Course Course Emergency Course: Improving Reevaluation(s) Reevaluation #1: Patient requested CT scan of the abdomen because he believes 100% that he have acute pancreatitis. CT abdomen and pelvis with IV contrast showed no acute abnormality. Date: 06/03/20 Time: 18:06 Vital Signs Vital signs: Vital Signs Temperature 36.1 C L 06/03/20 15:03 Pulse Rate 92 06/03/20 15:03 Respiratory Rate 18 06/03/20 15:03 Blood Pressure 167/
[2020-06-03] MEDS: SODIUM CHLORIDE 0.9% IV 2,000 ML 999 ML IV CONT (17:27)
[2020-06-03 18:20] VITALS: BP 110/75; PULSE 82; RESP 16; O2SAT 100
== END 2020-06-03 18:20 | disposition home or self-care (01) ==
PROVIDERS: Emergency Provider Emergency Medicine
DX: R11.2 Nausea with vomiting, unspecified (principal); F12.10 Cannabis abuse, uncomplicated; R10.13 Epigastric pain; F41.9 Anxiety disorder, unspecified; F32.9 Major depressive disorder, single episode, unspecified; K21.9 Gastro-esophageal reflux disease without esophagitis; I10 Essential (primary) hypertension; K58.9 Irritable bowel syndrome, unspecified; Z87.442 Personal history of urinary calculi; F17.210 Nicotine dependence, cigarettes, uncomplicated
CPT/HCPCS: 36415; 74177; 80053; 83690; 85025; 96361; 96365; 96372; 96375; 99284; J0131; J2405; J3410; J7030; Q9967

== ENCOUNTER 2020-06-09 15:19 | Emergency (ER) | payer OTHER, SELFPAY ==
[2020-06-09 15:25] VITALS: BP 186/93; PULSE 76; RESP 20; TEMP 36.7; O2SAT 96
[2020-06-09 15:46] LABS: Basophils Percent Auto 0.2 % (0.2-1.2); Eosinophils Percent Auto 0.1 % (0-4.4); Hematocrit 39.6 % (42.0-52.0); Hemoglobin 13.3 g/dL (14.0-18.0); Immature Granulocyte Absolute 0.05 K/mm3 (0.00-0.031); Immature Granulocyte Percent A 0.4 % (0-0.5); Lymphocytes Percent Auto 11.4 % (18.3-44.2); Mean Corpuscular HGB Conc 33.6 g/dl (32-36); Mean Corpuscular Hemoglobin 29.1 pg (26-34); Mean Corpuscular Volume 86.7 fl (80-100); Mean Platelet Volume 9.7 fl (7.4-10.4); Monocytes Absolute Auto 0.8 K/mm3 (0.1-0.6); Neutrophils Absolute Auto 11.5 K/mm3 (1.3-6.7); Neutrophils Percent Auto 81.9 % (45.5-73.1); Platelet Count Result 329 k/mm3 (150-375); Red Blood Count 4.57 M/mm3 (4.6-6.20); Red Cell Distribution Width 14.1 % (11.5-14.5)
[2020-06-09 15:55] LABS: Alanine Aminotransferase 16 U/L (4-50); Albumin Level 4.3 g/dL (3.5-5.1); Alkaline Phosphatase 91 U/L (38-126); Anion Gap 6 mmol/L (8-16); Aspartate Amino Transferase 22 U/L (17-59); Bilirubin,Total 0.5 mg/dL (0.2-1.3); Blood Urea Nitrogen 7 mg/dL (9-20); Calcium 9.2 mg/dL (8.4-10.2); Carbon Dioxide 25 mmol/L (22-30); Chloride 104 mmol/L (98-107); Estimated CRCL calculation 111 ml/min; Estimated Glomerular Filt Rate > 60; Glucose 121 mg/dL (75-110); Lipase 180 U/L (23-300); Potassium 4.1 mmol/L (3.4-5.0); Sodium 135 mmol/L (137-145)
[2020-06-09 16:05] LABS: Add Urine Microscopic? YES; Amorphous Sediment Urine Few; Appearance Urine Clear (Clear); Bilirubin Urine Negative (Negative); Blood Urine Negative (Negative); Color Urine Yellow (Yellow); Glucose Urine UA Negative (Negative); Ketones Urine Trace mg/dL (Negative); Leukocyte Esterase Ur Negative LEU/UL (Negative); Mucus Urine Rare /lpf; Nitrate Urine Negative (Negative); Protein Urine Negative (Negative); RBC Urine 0-2 /hpf (0-2); Specific Grav Ur 1.029 (1.001-1.035); Urobilinogen Urine Negative mg/dL (<2.0); WBC Urine 0-3 /hpf
--- NOTE | 2020-06-09 16:20 | ECG_ITS ---
Measurements Intervals [place] Rate: 65 P: 18 UT: 85 QRS: 52 QRSD: 104 T: 55 QT: 399 QTc: 415 Interpretive Statements SINUS RHYTHM WITH SINUS ARRHYTHMIA WITH SHORT UT INTERVAL INCOMPLETE RIGHT BUNDLE BRANCH BLOCK BORDERLINE ECG Electronically Signed On 06-09-2020 18:07:05 [employer] by Bebo Stark D.O.
--- NOTE | 2020-06-09 16:37 | ED.ABDPAIN ---
HPI - Abdominal Pain General Chief Complaint: Abdominal Pain Stated Complaint: ABD Pain Time Seen by Provider: 06/09/20 15:24 Source: patient Mode of arrival: ambulatory Limitations: no limitations History of Present Illness HPI narrative: PAtient is a 40 year old male with history of cyclic vomiting, chronic pancreatitis who presents for evaluation of epigastric abdominal pain with nausea and vomiting. He states he was discharged from [facility] yesterday . He was admitted for 2 due for his abdominal pain with nausea and vomiting. He state he was able to eat yesterday and he felt fine. This morning he woke up with epigastric pain, nausea and vomiting. HE denies fever, chills or diarrhea. He had a CT performed at [facility] and he states it was normal. Related Data Home Medications Medication Instructions Recorded Confirmed [id number]-[id number] [Creon] 1 cap PO TID 03/28/20 escitalopram oxalate mg 04/19/20 pantoprazole PO 04/19/20 Allergies Allergy/AdvReac Type Severity Reaction Status Date / Time doxycycline Allergy Unknown Unknown Verified 06/09/20 15:29 metoclopramide Allergy Unknown Unknown Verified 06/09/20 15:29 sulfamethoxazole Allergy Unknown Unknown Verified 06/09/20 15:29 trimethoprim Allergy Unknown Unknown Verified 06/09/20 15:29 Review of Systems Review of Systems: All systems reviewed & are unremarkable except as noted in HPI and below PMFSH Past Medical History Medical History Anxiety Colitis Cyclic vomiting syndrome Depression Gastroenteritis GERD (gastroesophageal reflux disease) Hypertension IBD (inflammatory bowel disease) Kidney stones Pancreatitis Surgical History Surgical History Hx of cholecystectomy Social History Social History Smoking packs per day: 0.5 Smoking cigarettes per day: 10.0 Smoking status: Current every day smoker Tobacco type: cigarettes Alcohol intake: never Substance use type: marijuana Gender identity (if verbalized by the patient): Male Exam Const: General: no acute distress and alert Orientation/consciousness: patient oriented x3 Eyes: EOM: EOMs intact bilaterally Resp: Effort & Inspection: normal respiratory effort and no retractions Auscultation: clear to auscultation bilaterally Cardio: Rate: regular rate Rhythm: regular rhythm Heart sounds: no murmurs GI: GI Palp: Yes Soft to palpation, No Tenderness to palpation present (GI), No Guarding due to palpation present (GI) and No Rigid due to palpation Auscultation: normal bowel sounds Other: no grimacing while palpating on abdomen Skin: General skin exam: normal color Rashes: no rashes Neuro: General: patient oriented x3, moves all extremities and CN's II-XI intact bilaterally Course Reevaluation(s) Reevaluation #1: PAtient has leukocytosis that has not significantly changed. his lipase is normal and his abdominal exam is benign. He reports a normal CT at [facility]. He has been sleeping and he is now awake. He states he is ready for discharge. No complaints at this time. Date: 06/09/20 Time: 19:12 Vital Signs Vital signs: Vital Signs Temperature 98.0 F 06/09/20 15:25 Pulse Rate 76 06/09/20 15:25 Respiratory Rate 20 06/09/20 15:25 Blood Pressure 186/93 H 06/09/20 15:25 Pulse Oximetry 96 06/09/20 15:25 Temperature 98.0 F 06/09/20 15:25 Pulse Rate 89 06/09/20 19:03 Respiratory Rate 20 06/09/20 19:03 Blood Pressure 139/89 06/09/20 19:03 Pulse Oximetry 98 06/09/20 19:03 MDM - Abdominal Pain Lab Data Attestation: I reviewed the patient's lab results. Result diagrams: 06/09/20 15:35 06/09/20 15:35 Labs: Lab Results 06/09/20 06/09/20 06/09/20 Range/Units 15:35 15:35 15:53 WBC 14.0 H (4.5-10.0) K/mm3 RBC 4.57 L (4.6-6.20) M/mm
[2020-06-09] MEDS: PANTOPRAZOLE SODIUM IV 40 MG VIAL IV PUSH (16:44)
[2020-06-09] MEDS: ONDANSETRON INJ 4 MG/2 ML VIAL IV PUSH (16:44)
[2020-06-09] MEDS: HALOPERIDOL LACTATE 5 MG/ML VIAL IM (16:46)
[2020-06-09] MEDS: LACTATED RINGERS 1,000 ML 999 ML IV CONT (16:47)
[2020-06-09 16:48] VITALS: BP 157/100; PULSE 60; RESP 20; O2SAT 100
[2020-06-09 18:15] VITALS: BP 120/73; PULSE 61; RESP 20; O2SAT 97
[2020-06-09 19:03] VITALS: BP 139/89; PULSE 89; RESP 20; O2SAT 98
== END 2020-06-09 19:28 | disposition home or self-care (01) ==
PROVIDERS: Emergency Provider General Practice
DX: R11.2 Nausea with vomiting, unspecified (principal); I10 Essential (primary) hypertension; K86.1 Other chronic pancreatitis; K58.9 Irritable bowel syndrome, unspecified; K21.9 Gastro-esophageal reflux disease without esophagitis; Z87.442 Personal history of urinary calculi; F41.9 Anxiety disorder, unspecified; F32.9 Major depressive disorder, single episode, unspecified; F17.210 Nicotine dependence, cigarettes, uncomplicated; I45.10 Unspecified right bundle-branch block
CPT/HCPCS: 36415; 80053; 81001; 83690; 85025; 93005; 96361; 96372; 96374; 96375; 99284; C9113; J1630; J2405; J7120

== ENCOUNTER 2020-08-08 14:32 | Emergency (ER) | payer OTHER, SELFPAY ==
[2020-08-08 14:47] VITALS: BP 150/103; PULSE 84; RESP 17; TEMP 35.7; O2SAT 100
[2020-08-08 15:24] LABS: Basophils Absolute Auto 0.1 K/mm3 (0.0-0.1); Basophils Percent Auto 0.4 % (0.2-1.2); Eosinophils Absolute Auto 0.2 K/mm3 (0-0.3); Hematocrit 38.7 % (42.0-52.0); Hemoglobin 12.8 g/dL (14.0-18.0); Immature Granulocyte Absolute 0.28 K/mm3 (0.00-0.031); Immature Granulocyte Percent A 1.6 % (0-0.5); Lymphocytes Absolute Auto 1.77 K/mm3 (0.9-3.2); Lymphocytes Percent Auto 10.3 % (18.3-44.2); Mean Corpuscular HGB Conc 33.1 g/dl (32-36); Mean Corpuscular Hemoglobin 27.9 pg (26-34); Mean Corpuscular Volume 84.3 fl (80-100); Mean Platelet Volume 10.3 fl (7.4-10.4); Monocytes Absolute Auto 1.4 K/mm3 (0.1-0.6); Monocytes Percent Auto 7.9 % (2.6-8.5); Neutrophils Absolute Auto 13.5 K/mm3 (1.3-6.7); Neutrophils Percent Auto 78.8 % (45.5-73.1); Platelet Count Result 328 k/mm3 (150-375); Red Blood Count 4.59 M/mm3 (4.6-6.20); Red Cell Distribution Width 14.8 % (11.5-14.5); White Blood Count 17.2 K/mm3 (4.5-10.0)
[2020-08-08 15:38] LABS: Alanine Aminotransferase 20 U/L (4-50); Albumin Level 4.3 g/dL (3.5-5.1); Alkaline Phosphatase 83 U/L (38-126); Anion Gap 5 mmol/L (8-16); Aspartate Amino Transferase 29 U/L (17-59); Bilirubin,Total 0.5 mg/dL (0.2-1.3); Blood Urea Nitrogen 11 mg/dL (9-20); Carbon Dioxide 28 mmol/L (22-30); Chloride 106 mmol/L (98-107); Estimated CRCL calculation 111 ml/min; Estimated Glomerular Filt Rate > 60; Glucose 112 mg/dL (75-110); Lipase 102 U/L (23-300); Sodium 139 mmol/L (137-145)
--- NOTE | 2020-08-08 17:59 | ED.ABDPAIN ---
HPI - Abdominal Pain General Chief Complaint: Abdominal Pain Stated Complaint: abd pain, N/V, hx pancreatitis Time Seen by Provider: 08/08/20 16:57 Source: patient Mode of arrival: ambulatory Limitations: no limitations History of Present Illness HPI narrative: 40-year-old male Long history of recurrent abdominal pain and frequent ED visits Has been attributed to chronic pancreatitis and is followed by gastroenterology at [place], although apparently he does not necessarily frequent the ED there Complains of a flareup of his symptoms for several days, and being treated and released from [facility], [facility] there showed only lg stool volume Now presents with pretty typical intractable nausea and vomiting and diffuse abdominal discomfort He smokes, does not drink, and does not smoke marijuana Reports a cholecystectomy was done 7 or 8 years ago but after a brief pause his symptoms have marched on No hematemesis, and no fever Related Data Home Medications Medication Instructions Recorded Confirmed [id number]-[id number] [Creon] 1 cap PO TID 03/28/20 pantoprazole PO 04/19/20 duloxetine 20 mg PO BID 08/08/20 Allergies Allergy/AdvReac Type Severity Reaction Status Date / Time doxycycline Allergy Unknown Unknown Verified 06/09/20 15:29 metoclopramide Allergy Unknown Unknown Verified 06/09/20 15:29 sulfamethoxazole Allergy Unknown Unknown Verified 06/09/20 15:29 trimethoprim Allergy Unknown Unknown Verified 06/09/20 15:29 Review of Systems Review of Systems: All systems reviewed & are unremarkable except as noted in HPI and below Constitutional: Constitutional: Denies chills, Reports fatigue, Denies fever(s), Denies headache(s) and Reports weakness Eyes: Eyes: Reports no additional eye complaints and Denies change in vision ENT: Denies headache(s), Denies epistaxis, Denies nasal congestion and Denies sore throat Cardiovascular: Cardiovascular: Denies chest pain, Denies leg edema, Denies palpitations and Denies dyspnea Respiratory: Respiratory: Denies cough, Denies dyspnea and Denies wheezing Gastrointestinal: Gastrointestinal: Reports abdominal pain, Denies diarrhea, Reports nausea and Reports vomiting Genitourinary: Genitourinary: Denies hematuria, Denies dysuria and Denies urinary frequency Musculoskeletal: Musculoskeletal: Reports myalgias, Denies deformity, Denies muscle weakness and Denies numbness Integumentary/Breasts: Skin/Breast: Denies wounds Neurologic: Denies focal weakness Psychiatric: Psychiatric: Reports no additional psychiatric complaints Endocrine: Endocrine: Reports fatigue and Denies palpitations PMFSH Past Medical History Medical History Anxiety Colitis Cyclic vomiting syndrome Depression Gastroenteritis GERD (gastroesophageal reflux disease) Hypertension IBD (inflammatory bowel disease) Kidney stones Pancreatitis Surgical History Surgical History Hx of cholecystectomy Social History Social History Smoking packs per day: 0.5 Smoking cigarettes per day: 10.0 Smoking status: Current every day smoker Tobacco type: cigarettes Alcohol intake: never Substance use type: marijuana Gender identity (if verbalized by the patient): Male Exam Const: General: well developed, alert and awake Nutritional Appearance: thin Orientation/consciousness: patient oriented x3 (alert) HENMT: Head: normocephalic and atraumatic Ears: external ears normal General nose exam: No nasal discharge present and no epistaxis Face and sinus: face symmetric Eyes: Conjunctivae: conjunctivae normal Sclera: sclerae normal EOM: EOMs intact bilaterally Neck: Neck: normal visual inspection, supple and no JVD Chest: Chest palpation & inspection: deferred Resp: Effort & Inspection: normal respiratory effort Auscult
[2020-08-08 18:00] VITALS: BP 125/88; PULSE 100; RESP 18; O2SAT 98
[2020-08-08] MEDS: LACTATED RINGERS 1,000 ML 999 ML IV CONT (18:02)
[2020-08-08] MEDS: PANTOPRAZOLE SODIUM IV 40 MG VIAL IV PUSH (18:02)
[2020-08-08] MEDS: HALOPERIDOL LACTATE 5 MG/ML VIAL 10 MG IV PUSH (18:02)
--- NOTE | 2020-08-08 18:04 | PC.NURSE ---
Pt given urinal to attempt urine sample, fluids infusing.
[2020-08-08 20:21] VITALS: BP 128/86; PULSE 84; RESP 16; TEMP 36.6; O2SAT 99
== END 2020-08-08 20:22 | disposition home or self-care (01) ==
PROVIDERS: Emergency Medicine; Emergency Provider Emergency Medicine; PCP Family Medicine
DX: R11.2 Nausea with vomiting, unspecified (principal); K59.00 Constipation, unspecified; R10.9 Unspecified abdominal pain; F41.9 Anxiety disorder, unspecified; F32.9 Major depressive disorder, single episode, unspecified; K21.9 Gastro-esophageal reflux disease without esophagitis
CPT/HCPCS: 36415; 80053; 83690; 85025; 96361; 96374; 96375; 99284; C9113; J1630; J7120

== ENCOUNTER 2020-10-15 15:40 | Emergency (ER) | payer OTHER, SELFPAY ==
[2020-10-15] VITALS (23 sets, daily range): BP systolic 109–122; BP diastolic 65–86; PULSE 62–86; RESP 14–20; TEMP 36.6; O2SAT 96–100
[2020-10-15 16:58] LABS: Basophils Absolute Auto 0.1 K/mm3 (0.0-0.1); Basophils Percent Auto 0.4 % (0.2-1.2); Eosinophils Absolute Auto 0.1 K/mm3 (0-0.3); Eosinophils Percent Auto 0.7 % (0-4.4); Hematocrit 37.7 % (42.0-52.0); Immature Granulocyte Absolute 0.07 K/mm3 (0.00-0.031); Immature Granulocyte Percent A 0.4 % (0-0.5); Lymphocytes Absolute Auto 1.13 K/mm3 (0.9-3.2); Lymphocytes Percent Auto 6.6 % (18.3-44.2); Mean Corpuscular HGB Conc 31.8 g/dl (32-36); Mean Corpuscular Hemoglobin 26.9 pg (26-34); Mean Corpuscular Volume 84.5 fl (80-100); Mean Platelet Volume 9.6 fl (7.4-10.4); Monocytes Absolute Auto 1.3 K/mm3 (0.1-0.6); Monocytes Percent Auto 7.7 % (2.6-8.5); Neutrophils Absolute Auto 14.4 K/mm3 (1.3-6.7); Neutrophils Percent Auto 84.2 % (45.5-73.1); Platelet Count Result 324 k/mm3 (150-375); Red Blood Count 4.46 M/mm3 (4.6-6.20); Red Cell Distribution Width 15.8 % (11.5-14.5); White Blood Count 17.1 K/mm3 (4.5-10.0)
[2020-10-15 17:02] LABS: Alanine Aminotransferase 17 U/L (4-50); Albumin Level 4.2 g/dL (3.5-5.1); Alkaline Phosphatase 76 U/L (38-126); Anion Gap 10 mmol/L (8-16); Aspartate Amino Transferase 24 U/L (17-59); Bilirubin,Total 0.3 mg/dL (0.2-1.3); Blood Urea Nitrogen 11 mg/dL (9-20); Calcium 9.2 mg/dL (8.4-10.2); Carbon Dioxide 26 mmol/L (22-30); Chloride 105 mmol/L (98-107); Estimated CRCL calculation 111 ml/min; Estimated Glomerular Filt Rate > 60; Glucose 136 mg/dL (75-110); Lipase 260 U/L (23-300); Potassium 3.7 mmol/L (3.4-5.0); Sodium 141 mmol/L (137-145)
[2020-10-15 20:20] LABS: Add Urine Microscopic? NO; Appearance Urine Clear (Clear); Bilirubin Urine Negative (Negative); Blood Urine Negative (Negative); Color Urine Yellow (Yellow); Glucose Urine UA Negative (Negative); Ketones Urine Negative (Negative); Leukocyte Esterase Ur Negative LEU/UL (Negative); Nitrate Urine Negative (Negative); Protein Urine Negative (Negative); Specific Grav Ur 1.008 (1.001-1.035); Urobilinogen Urine Negative mg/dL (<2.0)
--- NOTE | 2020-10-15 20:27 | PC.NURSE ---
pt reports he has a hx of pancreatitis since 2012. c/o n/v with 5x episodes of emesis beginning at 1400 today. last c/o similar pain was last week per pt. denies current ETOH use. reports vomit was yellow bile. denies diarrhea.
[2020-10-15] MEDS: SODIUM CHLORIDE 0.9% IV 1,000 ML 999 ML IV CONT (20:47)
[2020-10-15] MEDS: LORazepam INJ (*CRX) 2 MG/ML VIAL 1 MG IV PUSH (20:47)
--- NOTE | 2020-10-15 20:47 | ED.ABDPAIN ---
HPI - Abdominal Pain General Chief Complaint: Abdominal Pain <Vera Avalos MD - Last Filed: 10/15/20 21:05> Stated Complaint: abd pain, vomiting <Vera Avalos MD - Last Filed: 10/15/20 21:05> Time Seen by Provider: 10/15/20 19:37 <Vera Avalos MD - Last Filed: 10/15/20 21:05> Source: patient <Vera Avalos MD - Last Filed: 10/15/20 21:05> Mode of arrival: ambulatory <Vera Avalos MD - Last Filed: 10/15/20 21:05> Limitations: no limitations <Vera Avalos MD - Last Filed: 10/15/20 21:05> History of Present Illness HPI narrative: Patient 40 years old white male drove himself to the emergency room because of sudden onset of abdominal pain, nausea and vomiting started at 2 PM today. Patient scheduled to go to work at 3 PM. Patient is known to us with frequent ED visit for the same complaint of abdominal pain and vomiting. Last time was seen by his public relations intern 1 month ago, Protonix was doubled. Patient denies any fever, chills, chest pain, shortness of breath. Patient smokes, does not drink or use marijuana. History of cholecystectomy. Patient reported after the beginning of the abdominal pain he had quite a bit of bowel movements which are probably make him feel that he probably was constipated. Currently pain is 5 out of 10 compared to 10 out of 10 prior to arrival. Patient also complaining of oral cavity blisters. <Vera Avalos MD - Last Filed: 10/15/20 21:05> Related Data Home Medications: Home Medications Medication Instructions Recorded Confirmed [id number] [Creon] 1 cap PO TID 03/28/20 pantoprazole PO 04/19/20 duloxetine 20 mg PO BID 08/08/20 <Vera Avalos MD - Last Filed: 10/15/20 21:05> Allergies/Adverse Reactions: Allergies Allergy/AdvReac Type Severity Reaction Status Date / Time doxycycline Allergy Unknown Unknown Verified 06/09/20 15:29 metoclopramide Allergy Unknown Unknown Verified 06/09/20 15:29 sulfamethoxazole Allergy Unknown Unknown Verified 06/09/20 15:29 trimethoprim Allergy Unknown Unknown Verified 06/09/20 15:29 <Vera Avalos MD - Last Filed: 10/15/20 21:05> Review of Systems Review of Systems: Narrative: CONSTITUTIONAL: Denies fever, chills, or sweats. EYES: Denies visual changes, redness, or discharge. ENT: Denies rhinorrhea, congestion, sore throat, or otalgia. CARDIOVASCULAR: Denies chest pain, palpitations, or edema. RESPIRATORY: Denies cough or dyspnea. GASTROINTESTINAL: Abdominal pain, nausea and vomiting GENITOURINARY: Denies dysuria or hematuria. SKIN: Denies rash or itching. MUSCULOSKELETAL: Denies back pain, joint pain, or myalgia. NEUROLOGIC: Denies headache, numbness, or weakness. PSYCHIATRIC: Denies anxiety or depression. <Vera Avalos MD - Last Filed: 10/15/20 21:05> PMFSH Past Medical History Medical History: Medical History Anxiety Colitis Cyclic vomiting syndrome Depression Gastroenteritis GERD (gastroesophageal reflux disease) Hypertension IBD (inflammatory bowel disease) Kidney stones Pancreatitis <Vera Aavlos MD - Last Filed: 10/15/20 21:05> Surgical History Surgical History: Surgical History Hx of cholecystectomy <Vera Avalos MD - Last Filed: 10/15/20 21:05> Social History Social History: Social History Smoking packs per day: 0.5 Smoking cigarettes per day: 10.0 Smoking status: Current every day smoker Tobacco type: cigarettes Alcohol intake: never Substance use type: marijuana Gender identity (if verbalized by the patient): Male <Vera Avalos MD - Last Filed: 10/15/20 21:05> Exam Narrative: Exam Narrative: General appearance: Well-developed, well-nourished Skin: Normal color Eyes: Clear conjunctiva ENT: Oropharynx normal, ears normal, nose normal, multiple blister
[2020-10-15] MEDS: diphenhydrAMINE HCl INJ 50 MG/ML VIAL IV PUSH (20:49)
[2020-10-15] MEDS: DICYCLOMINE HCL INJ 20 MG/2 ML VIAL IM (20:57)
[2020-10-15] MEDS: PROCHLORPERAZINE EDISYLATE 10 MG/2 ML VIAL IV PUSH (20:57)
[2020-10-15] MEDS: BELLADONNA ALK/PHENOB ELIX 10 ML, MAG HYDROX/ALUMINUM HYD/SIMETH 30 ML, LIDOCAINE HCL 2... PO (21:00)
--- NOTE | 2020-10-15 22:25 | PC.NURSE ---
Pt keeps removing monitoring equipment when this RN leaves room. pt currently appears asleep, resting in bed c eyes closed. resps appear even/nonlabored. will continue to monitor.
[2020-10-16 00:31] VITALS: BP 124/63; PULSE 73; RESP 20; O2SAT 100
== END 2020-10-16 00:32 | disposition home or self-care (01) ==
PROVIDERS: Emergency Medicine; Emergency Provider Family Medicine
DX: R11.2 Nausea with vomiting, unspecified (principal); R10.9 Unspecified abdominal pain; B00.1 Herpesviral vesicular dermatitis; K21.9 Gastro-esophageal reflux disease without esophagitis; Z87.442 Personal history of urinary calculi; K58.9 Irritable bowel syndrome, unspecified; F17.210 Nicotine dependence, cigarettes, uncomplicated
CPT/HCPCS: 36415; 80053; 81003; 83690; 85025; 96361; 96372; 96374; 96375; 99284; A9270; J0500; J0780; J1200; J2060; J7030

== ENCOUNTER 2021-01-22 20:31 | Observation (INO) | payer OTHER, SELFPAY ==
[2021-01-22 20:33] VITALS: BP 169/105; PULSE 89; RESP 16; TEMP 36.8; O2SAT 98
[2021-01-22 20:46] LABS: Basophils Percent Auto 0.4 % (0.2-1.2); Eosinophils Absolute Auto 0.1 K/mm3 (0-0.3); Eosinophils Percent Auto 1.1 % (0-4.4); Hematocrit 38.8 % (42.0-52.0); Hemoglobin 12.4 g/dL (14.0-18.0); Immature Granulocyte Absolute 0.03 K/mm3 (0.00-0.031); Immature Granulocyte Percent A 0.3 % (0-0.5); Lymphocytes Percent Auto 38.9 % (18.3-44.2); Mean Corpuscular Hemoglobin 28.2 pg (26-34); Mean Corpuscular Volume 88.4 fl (80-100); Mean Platelet Volume 9.4 fl (7.4-10.4); Monocytes Absolute Auto 1.3 K/mm3 (0.1-0.6); Monocytes Percent Auto 12.8 % (2.6-8.5); Neutrophils Absolute Auto 4.7 K/mm3 (1.3-6.7); Neutrophils Percent Auto 46.5 % (45.5-73.1); Platelet Count Result 311 k/mm3 (150-375); Red Blood Count 4.39 M/mm3 (4.6-6.20); Red Cell Distribution Width 17.9 % (11.5-14.5)
[2021-01-22 20:58] LABS: Alanine Aminotransferase 19 U/L (4-50); Albumin Level 4.4 g/dL (3.5-5.1); Alkaline Phosphatase 77 U/L (38-126); Anion Gap 13 mmol/L (8-16); Aspartate Amino Transferase 27 U/L (17-59); Bilirubin,Total 0.5 mg/dL (0.2-1.3); Blood Urea Nitrogen 8 mg/dL (9-20); Calcium 9.2 mg/dL (8.4-10.2); Carbon Dioxide 26 mmol/L (22-30); Chloride 103 mmol/L (98-107); Estimated CRCL calculation 111 ml/min; Estimated Glomerular Filt Rate > 60; Glucose 127 mg/dL (65-110); Lipase 438 U/L (23-300); Potassium 3.8 mmol/L (3.4-5.0); Sodium 142 mmol/L (137-145)
--- NOTE | 2021-01-22 22:09 | ED.ABDPAIN ---
HPI - Abdominal Pain General Chief Complaint: Abdominal Pain Stated Complaint: abd pain - n/v Time Seen by Provider: 01/22/21 22:08 Source: patient Mode of arrival: ambulatory Limitations: no limitations History of Present Illness HPI narrative: Patient is a 40-year-old male with a history of chronic abdominal pain, hyperemesis, who presents for evaluation of acute onset abdominal pain after drinking a red slushy at work. Patient reports upper abdominal pain that is sharp, stabbing in nature. No radiation of pain to the back, lower abdomen. No chest pain or shortness of breath. Patient states he feels diaphoretic. He reports history of pain such as this in the past. He had a recent endoscopy last by Dr. Johnson at 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 He denies fever or chills. He reports nausea with multiple episodes of nonbloody emesis. He does report yellow coloration to the emesis. Patient states his symptoms usually resolved with Pepcid, Dilaudid and Zofran. Patient states he recently had 2 - CT scans [facility]. Related Data Home Medications Medication Instructions Recorded Confirmed duloxetine mg PO 01/22/21 sztcfe-vmciuctk-ulvhrdi [Creon] cap PO 01/22/21 omeprazole 01/22/21 ondansetron HCl 01/22/21 Allergies Allergy/AdvReac Type Severity Reaction Status Date / Time doxycycline AdvReac Abdominal Verified 01/22/21 21:34 Pain metoclopramide [From Reglan] AdvReac Seizure Verified 01/22/21 21:34 Sulfa (Sulfonamide AdvReac Seizure Verified 01/22/21 21:34 Antibiotics) Review of Systems Review of Systems: CONSTITUTIONAL: Denies fever, chills, reports feeling sweaty EYES: Denies visual changes, redness, or discharge. ENT: Denies rhinorrhea, congestion, sore throat, or otalgia. CARDIOVASCULAR: Denies chest pain, palpitations, or edema. RESPIRATORY: Denies cough or dyspnea. GASTROINTESTINAL: Reports abdominal pain, nausea and vomiting GENITOURINARY: Denies dysuria or hematuria. SKIN: Denies rash or itching. MUSCULOSKELETAL: Denies back pain, joint pain, or myalgia. NEUROLOGIC: Denies headache, numbness, or weakness. [facility] Social History Social History (Updated 01/22/21 @ 23:51 by Unique Earl MD) Smoking status: Never smoker Alcohol intake: never Substance use: never Living arrangements: alone Gender identity (if verbalized by the patient): Male Exam Narrative: GENERAL: Awake, alert, conversant HEAD: Normocephalic, atraumatic. EYES: PERRLA and EOMI. ENT: Nares clear, no rhinorrhea or epistaxis. Mucous membranes moist. NECK: Supple. CHEST: No respiratory distress, breathing even and non labored HEART: Regular rate, sinus rhythm ABDOMEN:Non distended, tender in the epigastrium and left upper quadrant with guarding, no rebound, nonrigid EXTREMITIES: Normal range of motion. No edema. SKIN: Warm, dry, no rash. NEURO:No focal deficits. Alert and oriented x3 Course Vital Signs Vital signs: Vital Signs Temperature 36.8 C 01/22/21 20:33 Pulse Rate 89 01/22/21 20:33 Respiratory Rate 16 01/22/21 20:33 Blood Pressure 169/105 H 01/22/21 20:33 Pulse Oximetry 98 01/22/21 20:33 Temperature 36.8 C 01/22/21 20:33 Pulse Rate 71 01/23/21 00:41 Respiratory Rate 16 01/23/21 00:41 Blood Pressure 118/83 01/23/21 00:41 Pulse Oximetry 98 01/23/21 00:41 MDM - Abdominal Pain MDM Narrative Medical decision making narrative: Patient presenting for evaluation of abdominal pain. At the time of assessment, ABCs are intact and vital signs are stable. Patient does have some epigastric pain on exam. IV access obtained and labs are drawn. Patient was given IV fluids, antiemetic and pain medication. He required additional doses of antiemetic, pain medication and eventually Haldol to help with his pain. Patient does
[2021-01-22] MEDS: diphenhydrAMINE HCl INJ 50 MG/ML VIAL 25 MG IV PUSH (22:33)
[2021-01-22] MEDS: ONDANSETRON INJ 4 MG/2 ML VIAL IV PUSH (22:33)
[2021-01-22] MEDS: FAMOTIDINE 20 MG/2 ML VIAL IV PUSH (22:33)
[2021-01-22] MEDS: HYDROmorphone HCL INJ (*CRX) 1 MG/ML SYR 0.5 MG IV PUSH (22:33)
[2021-01-22] MEDS: SODIUM CHLORIDE 0.9% IV 1,000 ML 999 ML IV CONT (22:34)
[2021-01-22 22:37] VITALS: BP 168/103; PULSE 71; RESP 20; O2SAT 96
[2021-01-22] MEDS: HYDROmorphone HCL INJ (*CRX) 1 MG/ML SYR IV PUSH (23:48)
[2021-01-22 23:58] VITALS: BP 111/70; PULSE 69; RESP 14; O2SAT 98
[2021-01-23 00:06] LABS: Add Urine Microscopic? NO; Appearance Urine Clear (Clear); Bilirubin Urine Negative (Negative); Blood Urine Negative (Negative); Color Urine Yellow (Yellow); Glucose Urine UA Negative (Negative); Ketones Urine Negative (Negative); Leukocyte Esterase Ur Negative LEU/UL (Negative); Nitrate Urine Negative (Negative); Protein Urine Negative (Negative); Specific Grav Ur 1.009 (1.001-1.035); Urobilinogen Urine Negative mg/dL (<2.0)
[2021-01-23 00:41] VITALS: BP 118/83; PULSE 71; RESP 16; O2SAT 98
--- NOTE | 2021-01-23 02:21 | PM.IMHP ---
H&P: HPI History of Present Illness Date/Time: 01/23/21 02:21 Chief Complaint: ABDOMINAL PAIN Narrative: THIS IS A 40-YEAR-OLD MALE WITH PAST MEDICAL HISTORY SIGNIFICANT FOR CHRONIC PANCREATITIS, CHRONIC ABDOMINAL PAIN, TOBACCO DEPENDENCE PATIENT IS SMOKES 1 PACK OF CIGARETTES DAILY. STATES THAT HE JUST RECENTLY HAD A CT OF ABDOMEN AND PELVIS AN ENDOSCOPY PERFORMED AT [facility] WHERE HE FOLLOWS UP WITH DR. MATHUR. HE PRESENTED TODAY TO THE EMERGENCY ROOM DUE TO ABDOMINAL PAIN WHILE HE WAS AT WORK. HE DENIES ANY NAUSEA ,ANY VOMITING ,ANY DIARRHEA, HAS NOT BEEN ABLE TO EAT ANYTHING DUE TO THE PAIN DENIES ANY FEVERS, ANY RIGORS ,ANY CHILLS HAS BEEN IN HIS USUAL STATE OF HEALTH UP UNTIL THIS. PRELIMINARY WORKUP WAS SIGNIFICANT FOR A LIPASE OF ELEVATED ABOVE 400. Review of Systems Review of Systems: ABDOMINAL PAIN Constitutional: Constitutional: Denies chills, Denies fatigue, Denies fever(s), Denies lethargy, Denies malaise and Denies weakness Eyes: Eyes: Denies change in vision ENT: Denies dysphagia, Denies nasal congestion, Denies nasal discharge, Denies nasal obstruction and Denies odynophagia Cardiovascular: Cardiovascular: Denies irregular heart rhythm, Denies claudication, Denies lightheadedness, Denies radiating jaw, neck or arm pain, Denies palpitations, Denies dyspnea on exertion and Denies orthopnea Respiratory: Respiratory: Denies cough Gastrointestinal: Gastrointestinal: Reports abdominal pain, Denies dyspepsia, Denies heartburn, Denies diarrhea, Reports nausea and Reports vomiting Genitourinary: Genitourinary: Reports no additional male genitourinary complaints Musculoskeletal: Musculoskeletal: Reports no additional musculoskeletal complaints Integumentary/Breasts: Skin/Breast: Reports system reviewed and no additional complaints, except as docu Neurologic: Reports system reviewed and no additional complaints, except as documented Psychiatric: Psychiatric: Reports no additional psychiatric complaints Endocrine: Endocrine: Reports no additional endocrine complaints Hematologic/Lymphatic: Hematologic/Lymphatic: Reports no additional hematologic/lymphatic complaints Allergic/Immunologic: Allergic/Immunologic: Reports no additional allergic/immunologic complaints [facility] Family History Family History (Updated 01/23/21 @ 03:44 by Loly Carrera RN) Grandparent Acute myocardial infarction Social History Social History (Updated 01/22/21 @ 23:51 by Unique Earl MD) Smoking packs per day: 1 Smoking cigarettes per day: 20.0 Years smoked: 20 Smoking pack-years: 20.00 Smoking status: Current every day smoker Tobacco type: cigarettes Alcohol intake: never Substance use: current Substance use type: marijuana Last use: couple days ago Living arrangements: alone Gender identity (if verbalized by the patient): Male Spiritual care concerns: No Meds Home Medications and Allergies Home Medications Medication Instructions Recorded Confirmed Type duloxetine mg PO 01/22/21 History [id number]-[id number] [Creon] cap PO 01/22/21 History ondansetron HCl 01/22/21 History omeprazole 20 mg PO BID 01/23/21 01/23/21 History Allergies Allergy/AdvReac Type Severity Reaction Status Date / Time doxycycline AdvReac Abdominal Verified 01/23/21 03:35 Pain metoclopramide [From Reglan] AdvReac Seizure Verified 01/23/21 03:35 Sulfa (Sulfonamide AdvReac Seizure Verified 01/23/21 03:35 Antibiotics) Vital Signs Vital Signs - 24 hr 01/22/21 20:33 01/22/21 22:37 01/22/21 23:58 Temperature 98.2 F Pulse Rate 89 71 69 Respiratory Rate 16 20 14 Blood Pressure 169/105 H 168/103 H 111/70 Pulse Oximetry 98 96 98 01/23/21 00:41 Temperature Pulse Rate 71 Respiratory Rate 16 Blood Pressure 118/83 Pulse Oximetry 98 Exam Narrative: [place] [facility] Const: General: cooperative, comfortable, no acute distress, well developed, alert and awake
[2021-01-23 02:58] VITALS: PULSE 66; RESP 14; O2SAT 99
--- NOTE | 2021-01-23 03:30 | ADMGEN ---
This patient, Donovan Bailey, was admitted to Medical Room 345-01. Patient/family oriented to hospital policies and general routines including ID bracelet, bed and alarms, visiting hours, pain management, procedures, bathroom and other care routines, personal items, smoking policy, room service/diet, and visiting hours. Information on how to activate the Rapid Response Team has been discussed. Patient/Family are encouraged to report perceived risks to care and to ask questions if they do not understand what they are told or what they should do.
[2021-01-23 03:33] VITALS: BP 129/88; PULSE 64; RESP 16; TEMP 36.3; O2SAT 100
[2021-01-23] MEDS: LACTATED RINGERS 1,000 ML 125 ML IV CONT ×3 (03:33→19:32)
[2021-01-23 03:44] VITALS: BMI 23.2
[2021-01-23] MEDS: ONDANSETRON INJ 4 MG/2 ML VIAL IV PUSH (05:12)
[2021-01-23] MEDS: HYDROmorphone HCL INJ (*CRX) 1 MG/ML SYR 2 MG IV PUSH ×6 (05:12→21:49)
[2021-01-23 08:42] LABS: Hematocrit 33.3 % (42.0-52.0); Hemoglobin 10.7 g/dL (14.0-18.0); Mean Corpuscular HGB Conc 32.1 g/dl (32-36); Mean Corpuscular Hemoglobin 27.9 pg (26-34); Mean Corpuscular Volume 86.7 fl (80-100); Mean Platelet Volume 9.5 fl (7.4-10.4); Platelet Count Result 257 k/mm3 (150-375); Red Blood Count 3.84 M/mm3 (4.6-6.20); Red Cell Distribution Width 17.5 % (11.5-14.5); White Blood Count 8.8 K/mm3 (4.5-10.0)
[2021-01-23 08:58] LABS: Alanine Aminotransferase 14 U/L (4-50); Albumin Level 3.4 g/dL (3.5-5.1); Alkaline Phosphatase 62 U/L (38-126); Anion Gap 9 mmol/L (8-16); Aspartate Amino Transferase 23 U/L (17-59); Bilirubin,Total 0.4 mg/dL (0.2-1.3); Blood Urea Nitrogen 9 mg/dL (9-20); Calcium 8.7 mg/dL (8.4-10.2); Carbon Dioxide 27 mmol/L (22-30); Chloride 106 mmol/L (98-107); Estimated CRCL calculation 126 ml/min; Estimated Glomerular Filt Rate > 60; Glucose 89 mg/dL (65-110); Lipase 72 U/L (23-300); Potassium 3.9 mmol/L (3.4-5.0); Sodium 142 mmol/L (137-145)
[2021-01-23] MEDS: PANTOPRAZOLE 40 MG TABLET PO ×2 (09:32→17:20)
[2021-01-23] MEDS: DULoxetine HCL 60 MG CAPSULE.DR PO ×2 (09:32→17:20)
[2021-01-23] MEDS: FAMOTIDINE 20 MG/2 ML VIAL IV PUSH ×2 (09:33→20:43)
[2021-01-23] MEDS: ONDANSETRON HCL ODT 4 MG TABLET PO ×2 (11:27→17:25)
[2021-01-23] MEDS: LIPASE/AMYLASE/PROTEASE 12,000 UNITS CAP 6 CAP PO ×2 (12:16→17:19)
[2021-01-23 14:00] VITALS: BP 144/86; PULSE 59; RESP 18; TEMP 36.6; O2SAT 100
--- NOTE | 2021-01-23 18:02 | PM.IMPN ---
Progress Note: A&P Assessment and Plan (1) Abdominal pain: Code(s): R10.9 - Unspecified abdominal pain Status: Acute Assessment and Plan: PLACED IN OBSERVATION IN [facility] SUPPORTIVE CARE PAIN MANAGEMENT PPI 01/23 patient with acute pancreatitis, denies history of alcohol abuse or family history of pancreatitis, patient pain has improved and lipase are trending down close to normal, will start the patient clear liquid and advanced his diet as tolerated and further recommendation to follow (2) Elevated lipase: Code(s): R74.8 - Abnormal levels of other serum enzymes Status: Acute Assessment and Plan: SLIGHTLY ELEVATED PATIENT STATES THAT HAD A CT OF ABDOMEN AND PELVIS RECENTLY PERFORMED CONTINUE TO MONITOR REPEAT LIPASE IN A.M. (3) Chronic pancreatitis: Code(s): K86.1 - Other chronic pancreatitis Status: Acute Assessment and Plan: CONTINUE PANCRELIPASE FOLLOW-UP AT OUTSIDE FACILITY (4) Cyclical vomiting: Code(s): R11.15 - Cyclical vomiting syndrome unrelated to migraine Status: Acute Assessment and Plan: [facility] NEEDED SUPPORTIVE CARE (5) Tobacco dependence: Code(s): F17.200 - Nicotine dependence, unspecified, uncomplicated Status: Acute Assessment and Plan: NICOTINE NEEDED Subjective Date/time seen: 01/23/21 18:03 Chief Complaint: ABDOMINAL PAIN Narrative: THIS IS A 40-YEAR-OLD MALE WITH PAST MEDICAL HISTORY SIGNIFICANT FOR CHRONIC PANCREATITIS, CHRONIC ABDOMINAL PAIN, TOBACCO DEPENDENCE PATIENT IS SMOKES 1 PACK OF CIGARETTES DAILY. STATES THAT HE JUST RECENTLY HAD A CT OF ABDOMEN AND PELVIS AN ENDOSCOPY PERFORMED AT [facility] WHERE HE FOLLOWS UP WITH DR. MATHUR. HE PRESENTED TODAY TO THE EMERGENCY ROOM DUE TO ABDOMINAL PAIN WHILE HE WAS AT WORK. HE DENIES ANY NAUSEA ,ANY VOMITING ,ANY DIARRHEA, HAS NOT BEEN ABLE TO EAT ANYTHING DUE TO THE PAIN DENIES ANY FEVERS, ANY RIGORS ,ANY CHILLS HAS BEEN IN HIS USUAL STATE OF HEALTH UP UNTIL THIS. PRELIMINARY WORKUP WAS SIGNIFICANT FOR A LIPASE OF ELEVATED ABOVE 400. 01/23 patient with acute pancreatitis, denies history of alcohol abuse or family history of pancreatitis, patient pain has improved and lipase are trending down close to normal, will start the patient clear liquid and advanced his diet as tolerated and further recommendation to follow Review of Systems Review of Systems: All systems reviewed & are unremarkable except as noted in HPI and below Exam Narrative: Patient is comfortable, NAD HEENT: eyes are clear and none icteric LUNGS:CTA HEART: RR S1S2 ABD: BS+, tender in epigastric Lower extremities: no edema SKIN: nonjaundiced Neuro: grossly intact. Objective Data Vital Signs Vital Signs: Vital Signs - 24 hr 01/22/21 20:33 01/22/21 22:37 01/22/21 23:58 Temperature 98.2 F Pulse Rate 89 71 69 Respiratory Rate 16 20 14 Blood Pressure 169/105 H 168/103 H 111/70 Pulse Oximetry 98 96 98 01/23/21 00:41 01/23/21 02:58 01/23/21 03:33 Temperature 97.3 F L Pulse Rate 71 66 64 Respiratory Rate 16 14 16 Blood Pressure 118/83 129/88 Pulse Oximetry 98 99 100 01/23/21 14:00 Temperature 97.9 F Pulse Rate 59 L Respiratory Rate 18 Blood Pressure 144/86 H Pulse Oximetry 100 Intake/Output Intake/Output: Intake & Output 01/20/21 01/21/21 01/22/21 01/23/21 23:59 23:59 23:59 23:59 Intake Total 1000 1900 Balance 1000 1900 Meds/Results Medications: Active Medications Generic Name Dose Route Start Last Admin Trade Name Freq PRN Reason Stop Dose Admin Lipase/Protease/Amylase 6 cap 01/23/21 12:00 01/23/21 17:19 Lipase/Amylase/Protease 12,000 Units Cap PO 02/22/21 11:59 6 cap TIDWM JENY Administration Dicyclomine HCl 20 mg 01/23/21 02:17 Dicyclomine Hcl Inj 20 Mg/2 Ml Vial IM Q6H PRN Abdominal Cramping Duloxetine HCl 60 mg 01/23/21 09:00 01/23/21 17:20 Duloxetine Hcl 60
[2021-01-23 20:26] VITALS: BP 132/94; PULSE 61; RESP 18; TEMP 36.6; O2SAT 97
[2021-01-24] MEDS: HYDROmorphone HCL INJ (*CRX) 1 MG/ML SYR 2 MG IV PUSH ×3 (00:51→06:51)
[2021-01-24] MEDS: LACTATED RINGERS 1,000 ML 125 ML IV CONT ×2 (03:25→10:28)
[2021-01-24 04:59] VITALS: BP 137/98; PULSE 66; RESP 18; TEMP 36.4; O2SAT 99
[2021-01-24 06:08] LABS: Basophils Absolute Auto 0.1 K/mm3 (0.0-0.1); Basophils Percent Auto 0.5 % (0.2-1.2); Eosinophils Absolute Auto 0.2 K/mm3 (0-0.3); Eosinophils Percent Auto 2.2 % (0-4.4); Hematocrit 34.4 % (42.0-52.0); Hemoglobin 11.1 g/dL (14.0-18.0); Immature Granulocyte Absolute 0.03 K/mm3 (0.00-0.031); Immature Granulocyte Percent A 0.3 % (0-0.5); Lymphocytes Absolute Auto 2.85 K/mm3 (0.9-3.2); Lymphocytes Percent Auto 29.3 % (18.3-44.2); Mean Corpuscular HGB Conc 32.3 g/dl (32-36); Mean Corpuscular Hemoglobin 28.8 pg (26-34); Mean Corpuscular Volume 89.4 fl (80-100); Monocytes Percent Auto 10.7 % (2.6-8.5); Neutrophils Absolute Auto 5.5 K/mm3 (1.3-6.7); Platelet Count Result 261 k/mm3 (150-375); Red Blood Count 3.85 M/mm3 (4.6-6.20); Red Cell Distribution Width 17.2 % (11.5-14.5); White Blood Count 9.7 K/mm3 (4.5-10.0)
[2021-01-24 06:42] LABS: Alanine Aminotransferase 17 U/L (4-50); Albumin Level 3.4 g/dL (3.5-5.1); Alkaline Phosphatase 68 U/L (38-126); Anion Gap 4 mmol/L (8-16); Aspartate Amino Transferase 33 U/L (17-59); Bilirubin,Total 0.5 mg/dL (0.2-1.3); Blood Urea Nitrogen 6 mg/dL (9-20); Calcium 8.7 mg/dL (8.4-10.2); Carbon Dioxide 32 mmol/L (22-30); Chloride 104 mmol/L (98-107); Estimated CRCL calculation 111 ml/min; Estimated Glomerular Filt Rate > 60; Glucose 103 mg/dL (65-110); Lipase 42 U/L (23-300); Potassium 3.7 mmol/L (3.4-5.0); Sodium 140 mmol/L (137-145)
[2021-01-24] MEDS: ONDANSETRON HCL ODT 4 MG TABLET PO (07:37)
[2021-01-24] MEDS: LIPASE/AMYLASE/PROTEASE 12,000 UNITS CAP 6 CAP PO ×2 (07:38→11:26)
[2021-01-24] MEDS: PANTOPRAZOLE 40 MG TABLET PO (08:27)
[2021-01-24] MEDS: DULoxetine HCL 60 MG CAPSULE.DR PO (08:27)
[2021-01-24] MEDS: FAMOTIDINE 20 MG/2 ML VIAL IV PUSH (08:27)
[2021-01-24] MEDS: HYDROcodone/acetaminophen (*CRX) 5-325 MG TABLET 1 TAB PO (10:27)
--- NOTE | 2021-01-24 13:45 | PM.DS ---
DS: Admitting Diagnosis Discharge Date 01/24/2021 Admitting Diagnosis Abdominal pain DS: Discharge Diagnosis Discharge Diagnosis (1) Abdominal pain: Code(s): R10.9 - Unspecified abdominal pain Status: Acute Assessment and Plan: PLACED IN OBSERVATION IN [facility] SUPPORTIVE CARE PAIN MANAGEMENT PPI 01/23 patient with acute pancreatitis, denies history of alcohol abuse or family history of pancreatitis, patient pain has improved and lipase are trending down close to normal, will start the patient clear liquid and advanced his diet as tolerated and further recommendation to follow (2) Elevated lipase: Code(s): R74.8 - Abnormal levels of other serum enzymes Status: Acute Assessment and Plan: SLIGHTLY ELEVATED PATIENT STATES THAT HAD A CT OF ABDOMEN AND PELVIS RECENTLY PERFORMED CONTINUE TO MONITOR REPEAT LIPASE IN A.M. (3) Chronic pancreatitis: Code(s): K86.1 - Other chronic pancreatitis Status: Acute Assessment and Plan: CONTINUE PANCRELIPASE FOLLOW-UP AT OUTSIDE FACILITY (4) Cyclical vomiting: Code(s): R11.15 - Cyclical vomiting syndrome unrelated to migraine Status: Acute Assessment and Plan: [facility] NEEDED SUPPORTIVE CARE (5) Tobacco dependence: Code(s): F17.200 - Nicotine dependence, unspecified, uncomplicated Status: Acute Assessment and Plan: NICOTINE NEEDED DS: Summary Hospital Course Reason for hospitalization: Chief Complaint: ABDOMINAL PAIN Narrative: THIS IS A 40-YEAR-OLD MALE WITH PAST MEDICAL HISTORY SIGNIFICANT FOR CHRONIC PANCREATITIS, CHRONIC ABDOMINAL PAIN, TOBACCO DEPENDENCE PATIENT IS SMOKES 1 PACK OF CIGARETTES DAILY. STATES THAT HE JUST RECENTLY HAD A CT OF ABDOMEN AND PELVIS AN ENDOSCOPY PERFORMED AT [facility] WHERE HE FOLLOWS UP WITH DR. MATHUR. HE PRESENTED TODAY TO THE EMERGENCY ROOM DUE TO ABDOMINAL PAIN WHILE HE WAS AT WORK. HE DENIES ANY NAUSEA ,ANY VOMITING ,ANY DIARRHEA, HAS NOT BEEN ABLE TO EAT ANYTHING DUE TO THE PAIN DENIES ANY FEVERS, ANY RIGORS ,ANY CHILLS HAS BEEN IN HIS USUAL STATE OF HEALTH UP UNTIL THIS. PRELIMINARY WORKUP WAS SIGNIFICANT FOR A LIPASE OF ELEVATED ABOVE 400. Hospital Course: 01/23 patient with acute pancreatitis, denies history of alcohol abuse or family history of pancreatitis, patient pain has improved and lipase are trending down close to normal, will start the patient clear liquid and advanced his diet as tolerated and further recommendation to follow Today patient clinically stable is able to tolerate his diet and has no complaint will discharge the patient home today Status at Discharge Functional status at discharge: independent ambulation Overall status at discharge: patient is back to baseline Time Spent with Patient Time attestation: Total time spent providing and/or coordinating discharge services: Patient was seen and examined at the time of the discharge Condition at discharge is stable Code status: Full code. Time spent preparing discharge summary, discharge medications, discussing discharge planning with outsole caser and patient is 35 minutes. Time spent: Greater than 30 minutes Exam Narrative: Patient is comfortable, NAD HEENT: eyes are clear and none icteric LUNGS:CTA HEART: RR S1S2 ABD: BS+, tender in epigastric Lower extremities: no edema SKIN: nonjaundiced Neuro: grossly intact. DS: Data Data Completed and Pending Labs on day of discharge: Labs from last 24 hours 01/24/21 01/24/21 05:41 05:41 WBC 9.7 RBC 3.85 L Hgb 11.1 L Hct 34.4 L MCV 89.4 MCH 28.8 MCHC 32.3 RDW 17.2 H Plt Count 261 MPV 10.0 Immature Gran % (Auto) 0.3 Neut % (Auto) 57.0 Lymph % (Auto) 29.3 [place]asper % (Auto) 10.7 H Eos % (Auto) 2.2 Baso % (Auto) 0.5 Lymph # (Auto) 2.85 [place]asper # (Auto) 1.0 H Eos # (Auto) 0.2 Baso # (Auto) 0.1 Abs Immat Gran (auto) 0.03 Absolute Neuts (auto) 5.5 Abs
== END 2021-01-24 14:14 | disposition home or self-care (01) ==
LOC: ANHED 01-23 02:19 → ANH3MED 01-23 03:01
PROVIDERS: Emergency Medicine; Family Medicine; Admitting Provider Internal Medicine; Emergency Provider Emergency Medicine; Visit Provider Physician Assistant
DX: K86.1 Other chronic pancreatitis (principal); R10.9 Unspecified abdominal pain; F17.210 Nicotine dependence, cigarettes, uncomplicated; R74.8 Abnormal levels of other serum enzymes
CPT/HCPCS: 36415; 80053; 81003; 83690; 83735; 85025; 85027; 96361; 96374; 96375; 96376; 99285; A9270; G0378; G0379; J1170; J1200; J2405; J7030; J7120

== ENCOUNTER 2021-02-07 18:59 | Emergency (ER) | payer OTHER, SELFPAY ==
--- NOTE | ~2021-02-07 | CT_ITS ---
EXAMINATION: CT abdomen pelvis w con INDICATION: Abdominal pain, nausea and vomiting TECHNIQUE: Computed tomographic images of the abdomen and pelvis were obtained after the administrati on of 100 cc of Omnipaque 350 intravenous contrast. The dose-length product (DLP) was 303.88 mGy-cm. Automated exposure control and iterative reconstruction technique were employed. COMPARISON: 06/03/2020 FINDINGS: Minimal dependent atelectasis is present in the lung bases. The heart size is normal. The g allbladder is surgically absent. There is a small volume of pneumobilia the liver, spleen, pancreas, and adrenal glands are normal. The left kidney is unremarkable. A 6 mm cyst is noted in the right kid desmond. There is questionable wall thickening of the proximal transverse colon which appears relatively fixed when compared to prior examinations. There is a greater than normal number of fluid-filled, non distended small bowel loops. No pathologically enlarged abdominal or pelvic lymph nodes are identifie d. The appendix is normal. There are fat-containing umbilical and right inguinal hernias. IMPRESSION: 1. Questionable wall thickening of the proximal transverse colon which has a relatively fixed appeara nce when compared to prior examinations. Findings could reflect colitis or other infiltrative process . Consider colonoscopy. Reviewed, dictated and finalized at location A. IMPRESSION: 1. Questionable wall thickening of the proximal transverse colon which has a re latively fixed appearance when compared to prior examinations. Findings could r eflect colitis or other infiltrative process. Consider colonoscopy.
[2021-02-07 19:12] VITALS: BP 144/88; PULSE 99; RESP 18; TEMP 37.4; O2SAT 100
[2021-02-07 19:43] LABS: Basophils Percent Auto 0.2 % (0.2-1.2); Eosinophils Percent Auto 0.2 % (0-4.4); Hematocrit 37.1 % (42.0-52.0); Hemoglobin 12.6 g/dL (14.0-18.0); Immature Granulocyte Absolute 0.04 K/mm3 (0.00-0.031); Immature Granulocyte Percent A 0.3 % (0-0.5); Lymphocytes Percent Auto 20.3 % (18.3-44.2); Mean Corpuscular Hemoglobin 28.3 pg (26-34); Mean Corpuscular Volume 83.4 fl (80-100); Mean Platelet Volume 9.6 fl (7.4-10.4); Monocytes Absolute Auto 1.5 K/mm3 (0.1-0.6); Monocytes Percent Auto 10.8 % (2.6-8.5); Neutrophils Absolute Auto 9.8 K/mm3 (1.3-6.7); Neutrophils Percent Auto 68.2 % (45.5-73.1); Platelet Count Result 378 k/mm3 (150-375); Red Blood Count 4.45 M/mm3 (4.6-6.20); Red Cell Distribution Width 17.1 % (11.5-14.5); White Blood Count 14.3 K/mm3 (4.5-10.0)
[2021-02-07 19:52] LABS: Alanine Aminotransferase 16 U/L (4-50); Albumin Level 4.9 g/dL (3.5-5.1); Alkaline Phosphatase 84 U/L (38-126); Anion Gap 15 mmol/L (8-16); Aspartate Amino Transferase 21 U/L (17-59); Bilirubin,Total 0.5 mg/dL (0.2-1.3); Blood Urea Nitrogen 9 mg/dL (9-20); Calcium 9.5 mg/dL (8.4-10.2); Carbon Dioxide 24 mmol/L (22-30); Chloride 102 mmol/L (98-107); Estimated CRCL calculation 100 ml/min; Estimated Glomerular Filt Rate > 60; Glucose 113 mg/dL (65-110); Lipase 95 U/L (23-300); Potassium 3.6 mmol/L (3.4-5.0); Sodium 141 mmol/L (137-145)
[2021-02-07 20:56] VITALS: BP 117/91; PULSE 85; RESP 18; O2SAT 99
[2021-02-07] MEDS: SODIUM CHLORIDE 0.9% IV 1,000 ML 999 ML IV CONT (21:49)
[2021-02-07] MEDS: MORPHINE SULFATE (*CRX) 4 MG/ML INJ IV PUSH ×2 (21:50→23:32)
[2021-02-07] MEDS: ONDANSETRON INJ 4 MG/2 ML VIAL IV PUSH (21:50)
[2021-02-07] MEDS: LIDOCAINE HCL 2% VISC SOLN 15 ML UDC 20 ML PO (21:50)
[2021-02-07] MEDS: MAG HYDROX/AL HYDROX/SIMETH 30 ML UDC PO (21:50)
--- NOTE | 2021-02-07 22:24 | ED.NAVMDI ---
HPI - Nausea/Vomiting/Diarrhea General Chief complaint: Nausea/Vomiting/Diarrhea Stated complaint: N/V Time Seen by Provider: 02/07/21 21:08 History of Present Illness HPI Narrative: Patient presents with nausea vomiting and abdominal pain. Reports history of chronic abdominal pain as well as a history of pancreatitis and gastritis. He reports his symptoms started today. His pain is achy, constant, no clear aggravating or alleviating factors. Denies any blood or bile or melena in his emesis or stool. Denies fevers denies sick contacts denies recent antibiotics. Related Data Home Medications Medication Instructions Recorded Confirmed [id number]-ztoasqnw-[id number] [Creon] 1 cap PO TID 03/28/20 pantoprazole PO 04/19/20 duloxetine 20 mg PO BID 08/08/20 Allergies Allergy/AdvReac Type Severity Reaction Status Date / Time doxycycline Allergy Unknown Unknown Verified 06/09/20 15:29 metoclopramide Allergy Unknown Unknown Verified 06/09/20 15:29 sulfamethoxazole Allergy Unknown Unknown Verified 06/09/20 15:29 trimethoprim Allergy Unknown Unknown Verified 06/09/20 15:29 Review of Systems Review of Systems: CONSTITUTIONAL: Denies fever, chills, or sweats. EYES: Denies visual changes, redness, or discharge. ENT: Denies rhinorrhea, congestion, sore throat, or otalgia. CARDIOVASCULAR: Denies chest pain, palpitations, or edema. RESPIRATORY: Denies cough or dyspnea. GASTROINTESTINAL: Reports abdominal pain nausea vomiting GENITOURINARY: Denies dysuria or hematuria. SKIN: Denies rash or itching. MUSCULOSKELETAL: Denies back pain, joint pain, or myalgia. NEUROLOGIC: Denies headache, numbness, dizziness, or weakness. PSYCHIATRIC: Denies anxiety or depression. All systems reviewed & are unremarkable except as noted in HPI and below PMFSH Past Medical History Medical History Anxiety Colitis Cyclic vomiting syndrome Depression Gastroenteritis GERD (gastroesophageal reflux disease) Hypertension IBD (inflammatory bowel disease) Kidney stones Pancreatitis Surgical History Surgical History Hx of cholecystectomy Social History Social History Smoking packs per day: 0.5 Smoking cigarettes per day: 10.0 Smoking status: Current every day smoker Tobacco type: cigarettes Alcohol intake: never Substance use type: marijuana Gender identity (if verbalized by the patient): Male Sexual Orientation (if Verbalized by the Patient): Straight or Heterosexual Exam Narrative: GENERAL: Well-appearing, well-nourished, and in no acute distress. HEAD: Normocephalic, atraumatic. EYES: PERRLA and EOMI. ENT: Nares clear, no rhinorrhea or epistaxis. Mucous membranes moist. NECK: Supple. No masses. No JVD CHEST: Clear to auscultation. No respiratory distress. No wheezes rales or rhonchi HEART: Regular rate and rhythm. No murmur heard. Normal peripheral pulses. ABDOMEN: Moderate diffuse abdominal pain soft, nondistended, normal active bowel sounds. EXTREMITIES: Normal range of motion. No edema. SKIN: Warm, dry, no rash. NEURO: No focal deficits. Alert and oriented x3. PSYCH: Normal mood and affect. Course Reevaluation(s) Reevaluation #1: Patient can have mild pain but overall looks clinically well. Labs reviewed with patient as well as imaging. No concern for acute life-threatening process. Patient is comfortable with outpatient plan and plans to follow-up with his GI doctor to consider colonoscopy. Date: 02/07/21 Time: 23:01 Vital Signs Vital signs: Vital Signs Temperature 37.4 C 02/07/21 19:12 Pulse Rate 99 02/07/21 19:12 Respiratory Rate 18 02/07/21 19:12 Blood Pressure 144/88 H 02/07/21 19:12 Pulse Oximetry 100 02/07/21 19:12 Temperature 37.4 C 02/07/21 19:12 Pulse Rate 87 02/08/21 00:58 Respiratory Rate 18 02/08/21 00:58 Blood Pressure
[2021-02-07] MEDS: KETOROLAC 15 MG/ML VIAL (*BKC) IV PUSH (23:32)
[2021-02-08 00:58] VITALS: BP 132/86; PULSE 87; RESP 18; O2SAT 98
== END 2021-02-08 01:03 | disposition home or self-care (01) ==
PROVIDERS: Emergency Medicine; Emergency Provider Emergency Medicine
DX: R10.84 Generalized abdominal pain (principal); D72.829 Elevated white blood cell count, unspecified; I10 Essential (primary) hypertension; K58.9 Irritable bowel syndrome, unspecified; K21.9 Gastro-esophageal reflux disease without esophagitis; Z87.442 Personal history of urinary calculi; F17.210 Nicotine dependence, cigarettes, uncomplicated
CPT/HCPCS: 36415; 74177; 80053; 83690; 85025; 96361; 96374; 96375; 96376; 99284; A9270; J1885; J2270; J2405; J7030; Q9967

== ENCOUNTER 2021-02-10 22:37 | Emergency (ER) | payer OTHER, SELFPAY ==
[2021-02-10 22:47] VITALS: BP 151/109; PULSE 81; RESP 20; TEMP 36.8; O2SAT 100
--- NOTE | 2021-02-11 00:33 | ED.GENADULT ---
HPI - General Adult General Chief complaint: Abdominal Pain Stated complaint: ABD pain, n/v Time Seen by Provider: 02/11/21 00:13 Source: RN notes reviewed History of Present Illness HPI narrative: Patient presents emergency department from home for abdominal pain. Patient states pain has been ongoing for the past several days pain is described as sharp and stabbing in the epigastric region does not radiate associate with nausea vomiting states he has been taking his medication at home with minimal relief including Zofran patient does have a history of recurrent abdominal pain he denies any fevers or chills chest pain shortness of breath or any other symptoms Related Data Home Medications Medication Instructions Recorded Confirmed etyjdn-ygauythx-lsovsmy [Creon] 1 cap PO TID 03/28/20 pantoprazole PO 04/19/20 duloxetine 20 mg PO BID 08/08/20 Allergies Allergy/AdvReac Type Severity Reaction Status Date / Time doxycycline Allergy Unknown Unknown Verified 02/10/21 22:50 metoclopramide Allergy Unknown Unknown Verified 02/10/21 22:50 sulfamethoxazole Allergy Unknown Unknown Verified 02/10/21 22:50 trimethoprim Allergy Unknown Unknown Verified 02/10/21 22:50 Review of Systems Review of Systems: Gen.: Denies fevers or chills Eyes: Denies eye pain or visual peñaloza ENT: Denies congestion Respiratory: Denies shortness of breath or cough CV: Denies chest pain or palpitations GI: see HPI Musculoskeletal: Denies back pain or muscle pain Neuro: Denies numbness, tingling, weakness or focal weakness Skin: Denies rash Except as documented, all other systems reviewed and negative PMFSH Past Medical History Medical History Anxiety Colitis Cyclic vomiting syndrome Depression Gastroenteritis GERD (gastroesophageal reflux disease) Hypertension IBD (inflammatory bowel disease) Kidney stones Pancreatitis Surgical History Surgical History Hx of cholecystectomy Social History Social History Smoking packs per day: 0.5 Smoking cigarettes per day: 10.0 Smoking status: Current every day smoker Tobacco type: cigarettes Alcohol intake: never Substance use type: marijuana Gender identity (if verbalized by the patient): Male Sexual Orientation (if Verbalized by the Patient): Straight or Heterosexual Exam Narrative: APPEARANCE: No acute distress, nontoxic, resting in bed HEENT: Normocephalic, atraumatic, OMM RESPIRATORY: No respiratory distress, clear to auscultation bilaterally with no rhonchi wheezing or rales CARDIOVASCULAR: RRR s murmur ABDOMINAL: Soft nondistended tender palpation epigastric, right upper quadrant left lower quadrant no tenderness right lower quadrant left lower quadrant rebound or guarding MUSCULOSKELETAl: Moves all extremities. No clubbing, cyanosis or edema. NEURO: Awake and alert. Following commands, speech normal, no focal deficits SKIN:: Warm, dry. Normal Color PSYCHIATRIC: Normal affect/mood Course Course Emergency Course: Reviewed old records patient has been seen here numerous times in the past for similar Patient states that they are feeling much better at this time. States abdominal pain has improved.. Discussed with patient results of workup and diagnosis. Discussed need for follow-up with primary care physician, reasons to return to the emergency department in proper use of medication. Patient understands and agrees to current treatment plan Vital Signs Vital signs: Vital Signs Temperature 98.2 F 02/10/21 22:47 Pulse Rate 81 02/10/21 22:47 Respiratory Rate 20 02/10/21 22:47 Blood Pressure 151/109 H 02/10/21 22:47 Pulse Oximetry 100 02/10/21 22:47 Temperature 98.2 F 02/10/21 22:47 Pulse Rate 81 02/10/21 22:47 Respiratory Rate 20 02/10/21 22:47 Blood Pressure 151/109 H 02/10/21 22:47 Pulse
[2021-02-11] MEDS: ONDANSETRON INJ 4 MG/2 ML VIAL IV PUSH (00:48)
[2021-02-11] MEDS: FAMOTIDINE 20 MG/2 ML VIAL IV PUSH (00:48)
[2021-02-11] MEDS: MORPHINE SULFATE (*CRX) 4 MG/ML INJ IV PUSH (00:49)
[2021-02-11] MEDS: SODIUM CHLORIDE 0.9% IV 1,000 ML 999 ML IV CONT ×2 (00:50→02:13)
[2021-02-11 00:57] LABS: Basophils Absolute Auto 0.1 K/mm3 (0.0-0.1); Basophils Percent Auto 0.3 % (0.2-1.2); Eosinophils Absolute Auto 0.1 K/mm3 (0-0.3); Eosinophils Percent Auto 0.7 % (0-4.4); Hematocrit 37.9 % (42.0-52.0); Hemoglobin 12.6 g/dL (14.0-18.0); Immature Granulocyte Absolute 0.07 K/mm3 (0.00-0.031); Immature Granulocyte Percent A 0.5 % (0-0.5); Lymphocytes Absolute Auto 1.32 K/mm3 (0.9-3.2); Lymphocytes Percent Auto 8.5 % (18.3-44.2); Mean Corpuscular HGB Conc 33.2 g/dl (32-36); Mean Corpuscular Hemoglobin 28.1 pg (26-34); Mean Corpuscular Volume 84.4 fl (80-100); Mean Platelet Volume 9.4 fl (7.4-10.4); Monocytes Absolute Auto 1.1 K/mm3 (0.1-0.6); Monocytes Percent Auto 7.2 % (2.6-8.5); Neutrophils Absolute Auto 12.8 K/mm3 (1.3-6.7); Neutrophils Percent Auto 82.8 % (45.5-73.1); Platelet Count Result 344 k/mm3 (150-375); Red Blood Count 4.49 M/mm3 (4.6-6.20); Red Cell Distribution Width 16.5 % (11.5-14.5); White Blood Count 15.4 K/mm3 (4.5-10.0)
[2021-02-11 01:07] LABS: Alanine Aminotransferase 17 U/L (4-50); Albumin Level 4.8 g/dL (3.5-5.1); Alkaline Phosphatase 86 U/L (38-126); Anion Gap 8 mmol/L (8-16); Aspartate Amino Transferase 24 U/L (17-59); Bilirubin,Total 0.4 mg/dL (0.2-1.3); Blood Urea Nitrogen 8 mg/dL (9-20); Calcium 9.6 mg/dL (8.4-10.2); Carbon Dioxide 28 mmol/L (22-30); Chloride 103 mmol/L (98-107); Estimated CRCL calculation 108 ml/min; Estimated Glomerular Filt Rate > 60; Glucose 114 mg/dL (65-110); Lipase 376 U/L (23-300); Sodium 139 mmol/L (137-145)
[2021-02-11] MEDS: HYDROmorphone HCL INJ (*CRX) 1 MG/ML SYR 0.5 MG IV PUSH (02:13)
[2021-02-11 03:43] VITALS: BP 150/90; PULSE 88; RESP 16; O2SAT 99
== END 2021-02-11 03:55 | disposition home or self-care (01) ==
PROVIDERS: Emergency Provider Emergency Medicine
DX: R10.13 Epigastric pain (principal); R11.2 Nausea with vomiting, unspecified; K21.9 Gastro-esophageal reflux disease without esophagitis; I10 Essential (primary) hypertension; K58.9 Irritable bowel syndrome, unspecified; Z87.442 Personal history of urinary calculi; F17.210 Nicotine dependence, cigarettes, uncomplicated
CPT/HCPCS: 36415; 80053; 83690; 85025; 96361; 96374; 96375; 99284; J1170; J2270; J2405; J7030

== ENCOUNTER 2021-03-11 13:23 | Emergency (ER) | payer OTHER, SELFPAY ==
[2021-03-11 13:34] VITALS: BP 185/113; PULSE 73; RESP 11; TEMP 36.7; O2SAT 100
--- NOTE | 2021-03-11 13:37 | ED.NAVMDI ---
HPI - Nausea/Vomiting/Diarrhea General Chief complaint: Nausea/Vomiting/Diarrhea Stated complaint: Vomiting, Stomach pain Time Seen by Provider: 03/11/21 13:37 Source: patient Mode of arrival: ambulatory Limitations: no limitations History of Present Illness HPI Narrative: Patient is a 40-year-old male who is a frequent utilizer of this emergency department with a history of cyclical vomiting presenting for evaluation of abdominal pain, nausea and vomiting. Patient states that his symptoms began this morning but have been worsening over the past 48 hours. Patient states he has been unable to tolerate oral intake since yesterday, reports numerous episodes of nonbloody, nonbilious emesis that is yellow in color. Patient reports that he is currently only dry heaving. He reports abdominal pain in the upper and lower central abdomen without radiation to the back. He denies chest pain or shortness of breath. He reports feeling sweaty and diffusely weak. Patient denies diarrhea, constipation or urinary symptoms. Patient is requesting IV fluids, Zofran, Pepcid and Dilaudid. He denies any recent food indiscretions. No recent travel. States symptoms are consistent with previous flares. Related Data Home Medications Medication Instructions Recorded Confirmed vubogx-jviempsy-cpvyrlr [Creon] 1 cap PO TID 03/28/20 pantoprazole PO 04/19/20 duloxetine 20 mg PO BID 08/08/20 Allergies Allergy/AdvReac Type Severity Reaction Status Date / Time doxycycline Allergy Unknown Unknown Verified 02/10/21 22:50 metoclopramide Allergy Unknown Unknown Verified 02/10/21 22:50 sulfamethoxazole Allergy Unknown Unknown Verified 02/10/21 22:50 trimethoprim Allergy Unknown Unknown Verified 02/10/21 22:50 Review of Systems Review of Systems: CONSTITUTIONAL: Denies fever, reports chills and diaphoresis EYES: Denies visual changes, redness, or discharge. ENT: Denies rhinorrhea, congestion, sore throat, or otalgia. CARDIOVASCULAR: Denies chest pain, palpitations, or edema. RESPIRATORY: Denies cough or dyspnea. GASTROINTESTINAL: Reports abdominal pain, nausea, vomiting, denies diarrhea or constipation GENITOURINARY: Denies dysuria or hematuria. SKIN: Denies rash or itching. MUSCULOSKELETAL: Denies back pain, joint pain, or myalgia. NEUROLOGIC: Denies headache, numbness, or weakness. PMFSH Past Medical History Medical History Anxiety Colitis Cyclic vomiting syndrome Depression Gastroenteritis GERD (gastroesophageal reflux disease) Hypertension IBD (inflammatory bowel disease) Kidney stones Pancreatitis Surgical History Surgical History Hx of cholecystectomy Social History Social History Smoking packs per day: 0.5 Smoking cigarettes per day: 10.0 Smoking status: Current every day smoker Tobacco type: cigarettes Alcohol intake: never Substance use type: marijuana Gender identity (if verbalized by the patient): Male Sexual Orientation (if Verbalized by the Patient): Straight or Heterosexual Exam Narrative: GENERAL: Awake, alert, diaphoretic, ill-appearing HEAD: Normocephalic, atraumatic. EYES: 2+ PERRLA and EOMI. ENT: Nares clear, no rhinorrhea or epistaxis. Mucous membranes moist. NECK: Supple. CHEST: No respiratory distress, breathing even and non labored HEART: Regular rate, sinus rhythm ABDOMEN:Non distended, tender in the epigastric, periumbilical, suprapubic region without guarding, no rebound EXTREMITIES: Normal range of motion. No edema. SKIN: Warm, dry, no rash. NEURO:No focal deficits. Alert and oriented x3 Course Vital Signs Vital signs: Vital Signs Temperature 36.7 C 03/11/21 13:34 Pulse Rate 73 03/11/21 13:34 Respiratory Rate 11 L 03/11/21 13:34 Blood Pressure 185/113 H 03/11/21 13:34 Pulse Oximetry 100 03/11/21 13:34 Tempera
[2021-03-11 14:07] LABS: Add Urine Microscopic? YES; Amorphous Sediment Urine Few; Appearance Urine Cloudy (Clear); Bilirubin Urine Negative (Negative); Blood Urine Negative (Negative); Color Urine Yellow (Yellow); Glucose Urine UA Negative (Negative); Ketones Urine Negative (Negative); Leukocyte Esterase Ur Negative LEU/UL (Negative); Nitrate Urine Negative (Negative); Protein Urine 1+ mg/dL (Negative); Specific Grav Ur 1.016 (1.001-1.035); Squamous Epithelial Cell Urine Rare /hpf (Few); Urobilinogen Urine Negative mg/dL (<2.0); WBC Urine 0-3 /hpf
[2021-03-11] MEDS: FAMOTIDINE 20 MG/2 ML VIAL IV PUSH (14:22)
[2021-03-11] MEDS: ONDANSETRON INJ 4 MG/2 ML VIAL IV PUSH (14:22)
[2021-03-11] MEDS: HYDROmorphone HCL INJ (*CRX) 1 MG/ML SYR 0.5 MG IV PUSH ×2 (14:22→17:06)
[2021-03-11] MEDS: SODIUM CHLORIDE 0.9% IV 2,000 ML 999 ML IV CONT (14:23)
[2021-03-11 14:37] LABS: Basophils Absolute Auto 0.1 K/mm3 (0.0-0.1); Basophils Percent Auto 0.4 % (0.2-1.2); Eosinophils Absolute Auto 0.1 K/mm3 (0-0.3); Eosinophils Percent Auto 0.8 % (0-4.4); Hematocrit 40.5 % (42.0-52.0); Hemoglobin 13.1 g/dL (14.0-18.0); Immature Granulocyte Absolute 0.08 K/mm3 (0.00-0.031); Immature Granulocyte Percent A 0.5 % (0-0.5); Lymphocytes Absolute Auto 1.32 K/mm3 (0.9-3.2); Lymphocytes Percent Auto 8.3 % (18.3-44.2); Mean Corpuscular HGB Conc 32.3 g/dl (32-36); Mean Corpuscular Hemoglobin 28.1 pg (26-34); Mean Corpuscular Volume 86.9 fl (80-100); Mean Platelet Volume 10.1 fl (7.4-10.4); Monocytes Absolute Auto 1.3 K/mm3 (0.1-0.6); Monocytes Percent Auto 8.3 % (2.6-8.5); Neutrophils Absolute Auto 13.1 K/mm3 (1.3-6.7); Neutrophils Percent Auto 81.7 % (45.5-73.1); Platelet Count Result 335 k/mm3 (150-375); Red Blood Count 4.66 M/mm3 (4.6-6.20)
[2021-03-11 16:25] VITALS: BP 114/75; PULSE 76; RESP 16; O2SAT 100
[2021-03-11 17:36] LABS: Alanine Aminotransferase 13 U/L (4-50); Albumin Level 3.9 g/dL (3.5-5.1); Alkaline Phosphatase 65 U/L (38-126); Anion Gap 7 mmol/L (8-16); Aspartate Amino Transferase 36 U/L (17-59); Bilirubin,Total 0.9 mg/dL (0.2-1.3); Blood Urea Nitrogen 9 mg/dL (9-20); Calcium 8.8 mg/dL (8.4-10.2); Carbon Dioxide 22 mmol/L (22-30); Chloride 108 mmol/L (98-107); Estimated CRCL calculation 126 ml/min; Estimated Glomerular Filt Rate > 60; Glucose 109 mg/dL (65-110); Lipase 128 U/L (23-300); Potassium 4.9 mmol/L (3.4-5.0); Sodium 137 mmol/L (137-145)
[2021-03-11 17:53] VITALS: BP 124/78; PULSE 85; RESP 16; O2SAT 100
== END 2021-03-11 17:55 | disposition home or self-care (01) ==
PROVIDERS: Emergency Provider Emergency Medicine
DX: R11.15 Cyclical vomiting syndrome unrelated to migraine (principal); E86.0 Dehydration; K21.9 Gastro-esophageal reflux disease without esophagitis; K58.9 Irritable bowel syndrome, unspecified; Z87.442 Personal history of urinary calculi
CPT/HCPCS: 36415; 80053; 81001; 83690; 85025; 96361; 96374; 96375; 96376; 99284; J1170; J2405; J7030

== ENCOUNTER 2021-03-14 19:47 | Emergency (ER) | payer OTHER, SELFPAY ==
[2021-03-14 19:49] VITALS: BP 183/103; PULSE 75; RESP 20; TEMP 36.4; O2SAT 100
[2021-03-14 20:40] VITALS: BP 176/82; PULSE 78; RESP 18; TEMP 36.4; O2SAT 99
[2021-03-14 20:42] LABS: Basophils Absolute Auto 0.1 K/mm3 (0.0-0.1); Basophils Percent Auto 0.4 % (0.2-1.2); Eosinophils Absolute Auto 0.2 K/mm3 (0-0.3); Eosinophils Percent Auto 0.8 % (0-4.4); Hematocrit 38.2 % (42.0-52.0); Hemoglobin 12.5 g/dL (14.0-18.0); Immature Granulocyte Percent A 0.5 % (0-0.5); Lymphocytes Absolute Auto 1.69 K/mm3 (0.9-3.2); Lymphocytes Percent Auto 9.2 % (18.3-44.2); Mean Corpuscular HGB Conc 32.7 g/dl (32-36); Mean Corpuscular Hemoglobin 27.7 pg (26-34); Mean Corpuscular Volume 84.7 fl (80-100); Mean Platelet Volume 9.6 fl (7.4-10.4); Monocytes Absolute Auto 1.9 K/mm3 (0.1-0.6); Monocytes Percent Auto 10.3 % (2.6-8.5); Neutrophils Absolute Auto 14.5 K/mm3 (1.3-6.7); Neutrophils Percent Auto 78.8 % (45.5-73.1); Platelet Count Result 328 k/mm3 (150-375); Red Blood Count 4.51 M/mm3 (4.6-6.20); White Blood Count 18.4 K/mm3 (4.5-10.0)
[2021-03-14 21:01] LABS: Alanine Aminotransferase 15 U/L (4-50); Albumin Level 4.5 g/dL (3.5-5.1); Alkaline Phosphatase 78 U/L (38-126); Anion Gap 8 mmol/L (8-16); Aspartate Amino Transferase 25 U/L (17-59); Bilirubin,Total 0.4 mg/dL (0.2-1.3); Blood Urea Nitrogen 9 mg/dL (9-20); Calcium 9.5 mg/dL (8.4-10.2); Carbon Dioxide 27 mmol/L (22-30); Chloride 106 mmol/L (98-107); Estimated CRCL calculation 111 ml/min; Estimated Glomerular Filt Rate > 60; Glucose 104 mg/dL (65-110); Lipase 241 U/L (23-300); Potassium 3.9 mmol/L (3.4-5.0); Sodium 141 mmol/L (137-145)
--- NOTE | 2021-03-14 21:02 | ED.NAVMDI ---
HPI - Nausea/Vomiting/Diarrhea General Chief complaint: Nausea/Vomiting/Diarrhea Stated complaint: abd pain, N/V Time Seen by Provider: 03/14/21 20:36 Source: patient History of Present Illness HPI Narrative: Patient presents with nausea vomiting and abdominal pain. Patient has been seen in this ER multiple times most recently a couple days ago. Patient has a history of cyclic vomiting reports a history of pancreatitis. Ports he has been having abdominal pain nausea vomiting past few days and cannot keep anything down. Denies any fevers diarrhea chest pain or shortness of breath. Does report symptoms feel similar to his prior pancreatitis. Report the symptoms usually improve with Pepcid and Dilaudid. Related Data Home Medications Medication Instructions Recorded Confirmed [id number]-yorkdrgx-cddnqku [Creon] 1 cap PO TID 03/28/20 pantoprazole PO 04/19/20 duloxetine 20 mg PO BID 08/08/20 Allergies Allergy/AdvReac Type Severity Reaction Status Date / Time doxycycline Allergy Unknown Unknown Verified 03/14/21 21:10 metoclopramide Allergy Unknown Unknown Verified 03/14/21 21:10 sulfamethoxazole Allergy Unknown Unknown Verified 03/14/21 21:10 trimethoprim Allergy Unknown Unknown Verified 03/14/21 21:10 Review of Systems Review of Systems: CONSTITUTIONAL: Denies fever, chills, or sweats. EYES: Denies visual changes, redness, or discharge. ENT: Denies rhinorrhea, congestion, sore throat, or otalgia. CARDIOVASCULAR: Denies chest pain, palpitations, or edema. RESPIRATORY: Denies cough or dyspnea. GASTROINTESTINAL: Reports abdominal pain nausea and vomiting GENITOURINARY: Denies dysuria or hematuria. SKIN: Denies rash or itching. MUSCULOSKELETAL: Denies back pain, joint pain, or myalgia. NEUROLOGIC: Denies headache, numbness, dizziness, or weakness. PSYCHIATRIC: Denies anxiety or depression. All systems reviewed & are unremarkable except as noted in HPI and below PMFSH Past Medical History Medical History Anxiety Colitis Cyclic vomiting syndrome Depression Gastroenteritis GERD (gastroesophageal reflux disease) Hypertension IBD (inflammatory bowel disease) Kidney stones Pancreatitis Surgical History Surgical History Hx of cholecystectomy Social History Social History Smoking packs per day: 0.5 Smoking cigarettes per day: 10.0 Smoking status: Current every day smoker Tobacco type: cigarettes Alcohol intake: never Substance use type: marijuana Gender identity (if verbalized by the patient): Male Sexual Orientation (if Verbalized by the Patient): Straight or Heterosexual Exam Narrative: GENERAL: Well-appearing, well-nourished, and in no acute distress. HEAD: Normocephalic, atraumatic. EYES: PERRLA and EOMI. ENT: Nares clear, no rhinorrhea or epistaxis. Mucous membranes moist. NECK: Supple. No masses. No JVD CHEST: Clear to auscultation. No respiratory distress. No wheezes rales or rhonchi HEART: Regular rate and rhythm. No murmur heard. Normal peripheral pulses. ABDOMEN: Mild tenderness in the epigastric area stable soft, nondistended, normal active bowel sounds. EXTREMITIES: Normal range of motion. No edema. SKIN: Warm, dry, no rash. NEURO: No focal deficits. Alert and oriented x3. PSYCH: Normal mood and affect. Course Reevaluation(s) Reevaluation #1: Patient reported mild improvement in nausea after the Compazine when I reevaluated him. Reports can be Nausea. Work-Up Reviewed with Patient. Patient Has Chronic Elevation in His WBCs He Is Already Aware and Was Told Is Related to His Cyclic Vomiting. He already has established care with a GI physician. With a negative work-up and some improvement in symptoms patient is appropriate for continued outpatient evaluation. Date: 03/14/21 Time: 22:04 Vital Signs Vital signs: Vital S
[2021-03-14] MEDS: PROCHLORPERAZINE EDISYLATE 10 MG/2 ML VIAL IV PUSH (21:04)
[2021-03-14] MEDS: HYDROmorphone HCL INJ (*CRX) 1 MG/ML SYR 0.5 MG IV PUSH (21:04)
[2021-03-14] MEDS: FAMOTIDINE 20 MG/2 ML VIAL IV PUSH (21:04)
[2021-03-14] MEDS: SODIUM CHLORIDE 0.9% IV 1,000 ML 999 ML IV CONT (21:04)
[2021-03-14] MEDS: ONDANSETRON INJ 4 MG/2 ML VIAL IV PUSH (22:07)
[2021-03-14 22:17] VITALS: BP 162/78; PULSE 78; RESP 20; O2SAT 99
== END 2021-03-14 22:19 | disposition home or self-care (01) ==
PROVIDERS: Emergency Provider Emergency Medicine; PCP Family Medicine
DX: R10.13 Epigastric pain (principal); R11.2 Nausea with vomiting, unspecified; K21.9 Gastro-esophageal reflux disease without esophagitis; K58.9 Irritable bowel syndrome, unspecified; Z87.442 Personal history of urinary calculi; F17.210 Nicotine dependence, cigarettes, uncomplicated; F41.9 Anxiety disorder, unspecified; F32.A Depression, unspecified
CPT/HCPCS: 36415; 80053; 83690; 85025; 96361; 96374; 96375; 99284; J0780; J1170; J2405; J7030

== ENCOUNTER 2021-03-15 19:17 | Emergency (ER) | payer OTHER, SELFPAY ==
[2021-03-15] VITALS (11 sets, daily range): BP systolic 125–127; BP diastolic 84–91; PULSE 71–107; RESP 18; TEMP 36.6; O2SAT 97–99
[2021-03-15 19:36] LABS: Basophils Absolute Auto 0.1 K/mm3 (0.0-0.1); Basophils Percent Auto 0.6 % (0.2-1.2); Eosinophils Absolute Auto 0.1 K/mm3 (0-0.3); Hematocrit 37.7 % (42.0-52.0); Hemoglobin 12.3 g/dL (14.0-18.0); Immature Granulocyte Absolute 0.03 K/mm3 (0.00-0.031); Immature Granulocyte Percent A 0.4 % (0-0.5); Lymphocytes Absolute Auto 1.61 K/mm3 (0.9-3.2); Lymphocytes Percent Auto 19.6 % (18.3-44.2); Mean Corpuscular HGB Conc 32.6 g/dl (32-36); Mean Corpuscular Volume 85.7 fl (80-100); Mean Platelet Volume 9.4 fl (7.4-10.4); Monocytes Absolute Auto 0.7 K/mm3 (0.1-0.6); Monocytes Percent Auto 8.5 % (2.6-8.5); Neutrophils Absolute Auto 5.8 K/mm3 (1.3-6.7); Neutrophils Percent Auto 69.9 % (45.5-73.1); Platelet Count Result 314 k/mm3 (150-375); Red Cell Distribution Width 15.9 % (11.5-14.5); White Blood Count 8.2 K/mm3 (4.5-10.0)
[2021-03-15 19:47] LABS: Alanine Aminotransferase 16 U/L (4-50); Albumin Level 4.6 g/dL (3.5-5.1); Alkaline Phosphatase 77 U/L (38-126); Anion Gap 8 mmol/L (8-16); Aspartate Amino Transferase 22 U/L (17-59); Bilirubin,Total 0.4 mg/dL (0.2-1.3); Blood Urea Nitrogen 7 mg/dL (9-20); Calcium 9.5 mg/dL (8.4-10.2); Carbon Dioxide 26 mmol/L (22-30); Chloride 105 mmol/L (98-107); Estimated CRCL calculation 111 ml/min; Estimated Glomerular Filt Rate > 60; Glucose 147 mg/dL (65-110); Lipase 91 U/L (23-300); Potassium 3.5 mmol/L (3.4-5.0); Sodium 139 mmol/L (137-145)
--- NOTE | 2021-03-15 21:31 | PC.NURSE ---
Pt reports he was given compazine prescription yesterday and did not yet pick it up.
--- NOTE | 2021-03-15 21:39 | ED.ABDPAIN ---
HPI - Abdominal Pain General Chief Complaint: Abdominal Pain Stated Complaint: vomiting, abd pain Time Seen by Provider: 03/15/21 21:16 Source: patient, RN notes reviewed and old records reviewed Mode of arrival: ambulatory Limitations: no limitations History of Present Illness HPI narrative: This is a 40 year old male with history of chronic pancreatitis and cyclic vomiting who presents for evaluation of nausea, vomiting and abdominal pain. Patient been seen in ER multiple times for this complaint. He was seen yesterday for his same symptoms. He was given Compazine and he felt better. He states he drank ensure this morning and he went to work. While at work he started to feel unwell again. He complains of same symptoms as before with left upper abdominal nausea and vomiting. He denies diarrhea, fever or chills. His last BM was yesterday and it was normal. He took Zofran and Compazine at home. 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 He reports normal upper endoscopy this year. He is unsure of exacerbating factors. Related Data Home Medications Medication Instructions Recorded Confirmed Creon 2 cap PO TIDWM 01/22/21 01/23/21 duloxetine 60 mg PO BID 01/22/21 01/23/21 ondansetron HCl 4 mg PO QID PRN 01/22/21 01/23/21 omeprazole 20 mg PO BID 01/23/21 01/23/21 Allergies Allergy/AdvReac Type Severity Reaction Status Date / Time doxycycline AdvReac Abdominal Verified 03/15/21 21:32 Pain metoclopramide [From Reglan] AdvReac Seizure Verified 03/15/21 21:32 Sulfa (Sulfonamide AdvReac Seizure Verified 03/15/21 21:32 Antibiotics) Review of Systems Review of Systems: All systems reviewed & are unremarkable except as noted in HPI and below PMFSH Past Medical History Medical History (Updated 03/16/21 @ 00:16 by Sena Olivera MD) Chronic pancreatitis Cyclical vomiting Family History Family History (Updated 01/23/21 @ 03:44 by Loly Carrera RN) Grandparent Acute myocardial infarction Social History Social History (Updated 01/22/21 @ 23:51 by Unique Earl MD) Smoking packs per day: 1 Smoking cigarettes per day: 20.0 Years smoked: 20 Smoking pack-years: 20.00 Smoking status: Current every day smoker Tobacco type: cigarettes Alcohol intake: never Substance use: current Substance use type: marijuana Last use: couple days ago Gender identity (if verbalized by the patient): Male Spiritual care concerns: No Exam Const: General: no acute distress and alert Orientation/consciousness: patient oriented x3 Eyes: EOM: EOMs intact bilaterally Chest: Chest palpation & inspection: normal inspection of the chest Resp: Effort & Inspection: normal respiratory effort and no retractions Auscultation: clear to auscultation bilaterally Cardio: Rate: regular rate Rhythm: regular rhythm Heart sounds: no murmurs GI: GI Palp: Yes Soft to palpation, No Tenderness to palpation present (GI) and No Guarding due to palpation present (GI) Auscultation: normal bowel sounds Skin: General skin exam: normal color Rashes: no rashes Neuro: General: patient oriented x3, moves all extremities and CN's II-XI intact bilaterally Extrem: General: normal to inspection Psych: Mental Status: mental status grossly normal Affect: normal affect Course Reevaluation(s) Reevaluation #1: labs are unremarkable. He was given IVF and antiemetics. PAtient was able to tolerate Po and has no vomiting. He is in no acute distress. Will be discharged. Date: 03/16/21 Time: 00:14 Vital Signs Vital signs: Vital Signs Temperature 97.9 F 03/15/21 19:19 Pulse Rate 107 H 03/15/21 19:19 Respiratory Rate 18 03/15/21 19:19 Blood Pressure 127/91 H 03/15/21 19:19 Pulse Oximetry 99 03/15/21 19:19 Temperature 97.9 F 03/15/21 19:19 Pulse Rate 71 03/15/21 23:41 Respiratory Rate 18 03/15/21 23:41 Blood Pressure 126/84 03/15/21 23:41 Pulse Oximetry 98 03/15/21 23
[2021-03-15] MEDS: diphenhydrAMINE HCl INJ 50 MG/ML VIAL 25 MG IV PUSH (21:44)
[2021-03-15] MEDS: FAMOTIDINE 20 MG/2 ML VIAL IV PUSH (21:44)
[2021-03-15] MEDS: LACTATED RINGERS 1,000 ML 999 ML IV CONT (21:44)
[2021-03-15] MEDS: PROCHLORPERAZINE EDISYLATE 10 MG/2 ML VIAL IV PUSH (21:45)
[2021-03-15 23:19] LABS: Add Urine Microscopic? YES; Appearance Urine Cloudy (Clear); Bilirubin Urine Negative (Negative); Blood Urine Negative (Negative); Budding Yeast Urine Present /hpf; Color Urine Yellow (Yellow); Glucose Urine UA Negative (Negative); Ketones Urine Negative (Negative); Leukocyte Esterase Ur Negative LEU/UL (Negative); Mucus Urine Rare /lpf; Nitrate Urine Negative (Negative); Protein Urine Negative (Negative); RBC Urine 21-50 /hpf (0-2); Specific Grav Ur 1.018 (1.001-1.035)
[2021-03-15] MEDS: DICYCLOMINE HCL INJ 20 MG/2 ML VIAL IM (23:27)
[2021-03-15] MEDS: BELLADONNA ALK/PHENOB ELIX 10 ML, MAG HYDROX/ALUMINUM HYD/SIMETH 30 ML, LIDOCAINE HCL 2... PO (23:37)
== END 2021-03-16 00:50 | disposition home or self-care (01) ==
PROVIDERS: Emergency Medicine; Emergency Provider General Practice
DX: R11.15 Cyclical vomiting syndrome unrelated to migraine (principal); K86.1 Other chronic pancreatitis; F17.210 Nicotine dependence, cigarettes, uncomplicated
CPT/HCPCS: 36415; 80053; 81001; 83690; 85025; 96361; 96365; 96372; 96375; 99284; A9270; J0131; J0500; J0780; J1200; J7120

== ENCOUNTER 2021-03-18 16:58 | Emergency (ER) | payer OTHER, SELFPAY ==
[2021-03-18 17:14] VITALS: BP 133/93; PULSE 98; RESP 16; TEMP 36.6; O2SAT 98
[2021-03-18 17:34] LABS: Basophils Percent Auto 0.3 % (0.2-1.2); Eosinophils Percent Auto 0.1 % (0-4.4); Hematocrit 39.8 % (42.0-52.0); Hemoglobin 13.1 g/dL (14.0-18.0); Immature Granulocyte Absolute 0.05 K/mm3 (0.00-0.031); Immature Granulocyte Percent A 0.5 % (0-0.5); Lymphocytes Absolute Auto 1.41 K/mm3 (0.9-3.2); Mean Corpuscular HGB Conc 32.9 g/dl (32-36); Mean Corpuscular Hemoglobin 27.5 pg (26-34); Mean Corpuscular Volume 83.6 fl (80-100); Mean Platelet Volume 9.4 fl (7.4-10.4); Monocytes Absolute Auto 0.8 K/mm3 (0.1-0.6); Monocytes Percent Auto 7.6 % (2.6-8.5); Neutrophils Absolute Auto 8.5 K/mm3 (1.3-6.7); Neutrophils Percent Auto 78.5 % (45.5-73.1); Platelet Count Result 381 k/mm3 (150-375); Red Blood Count 4.76 M/mm3 (4.6-6.20); Red Cell Distribution Width 15.9 % (11.5-14.5); White Blood Count 10.8 K/mm3 (4.5-10.0)
[2021-03-18 17:53] LABS: Alanine Aminotransferase 18 U/L (4-50); Albumin Level 4.9 g/dL (3.5-5.1); Alkaline Phosphatase 101 U/L (38-126); Anion Gap 9 mmol/L (8-16); Aspartate Amino Transferase 28 U/L (17-59); Bilirubin,Total 0.6 mg/dL (0.2-1.3); Blood Urea Nitrogen 9 mg/dL (9-20); Carbon Dioxide 26 mmol/L (22-30); Chloride 105 mmol/L (98-107); Estimated CRCL calculation 111 ml/min; Estimated Glomerular Filt Rate > 60; Glucose 137 mg/dL (65-110); Lipase 74 U/L (23-300); Potassium 4.1 mmol/L (3.4-5.0); Sodium 140 mmol/L (137-145)
[2021-03-18 19:26] VITALS: BP 125/84; PULSE 101; RESP 15; O2SAT 100
[2021-03-18 19:46] LABS: Add Urine Microscopic? YES; Appearance Urine Cloudy (Clear); Bacteria Urine 3+ /hpf; Bilirubin Urine Negative (Negative); Blood Urine Negative (Negative); Color Urine Yellow (Yellow); Glucose Urine UA Negative (Negative); Ketones Urine 1+ mg/dL (Negative); Leukocyte Esterase Ur Negative LEU/UL (Negative); Mucus Urine Heavy /lpf; Nitrate Urine Negative (Negative); Protein Urine 2+ mg/dL (Negative); Specific Grav Ur 1.018 (1.001-1.035); Squamous Epithelial Cell Urine Rare /hpf (Few); Urobilinogen Urine Negative mg/dL (<2.0)
[2021-03-18 20:46] VITALS: BP 140/82; PULSE 97; RESP 15; O2SAT 100
[2021-03-18 22:29] VITALS: BP 133/101; PULSE 99; RESP 18; O2SAT 98
--- NOTE | 2021-03-18 22:38 | ED.GENADULT ---
HPI - General Adult General Chief complaint: Abdominal Pain Stated complaint: N/V Time Seen by Provider: 03/18/21 22:32 History of Present Illness HPI narrative: Patient is a 40-year-old male who presents ER with diffuse abdominal pain with vomiting. Patient has history of cyclic vomiting pancreatitis. He has had multiple visits over the last week. Has had resolution of symptoms with antiemetics and Pepcid. Patient often requests Dilaudid pain. He sees a GI physician by name of Dr. Woodard in [facility]. He has scheduled follow-up next week. Denies any blood in stool or emesis. Reports an episode of diarrhea today symptoms recurred this morning. Cannot identify any triggering factors. Patient denies any urinary symptoms or renal colic, he has had this before and feels like this is different. Related Data Home Medications Medication Instructions Recorded Confirmed gwjhmk-whkxveom-plycbsq [Creon] 1 cap PO TID 03/28/20 pantoprazole PO 04/19/20 duloxetine 20 mg PO BID 08/08/20 Creon 2 cap PO TIDWM 01/22/21 01/23/21 duloxetine 60 mg PO BID 01/22/21 01/23/21 ondansetron HCl 4 mg PO QID PRN 01/22/21 01/23/21 omeprazole 20 mg PO BID 01/23/21 01/23/21 Allergies Allergy/AdvReac Type Severity Reaction Status Date / Time doxycycline Allergy Unknown Unknown Verified 03/18/21 09:35 metoclopramide Allergy Unknown Unknown Verified 03/18/21 09:35 sulfamethoxazole Allergy Unknown Unknown Verified 03/18/21 09:35 trimethoprim Allergy Unknown Unknown Verified 03/18/21 09:35 Sulfa (Sulfonamide AdvReac Seizure Verified 03/18/21 09:35 Antibiotics) Review of Systems Review of Systems: All systems reviewed & are unremarkable except as noted in HPI and below Constitutional: Constitutional: Denies chills, Denies fever(s) and Denies weakness ENT: Denies nasal congestion and Denies sore throat Cardiovascular: Cardiovascular: Denies chest pain and Denies radiating jaw, neck or arm pain Gastrointestinal: Gastrointestinal: Reports abdominal pain, Reports diarrhea, Reports nausea and Reports vomiting Genitourinary: Genitourinary: Denies hematuria, Denies dysuria and Denies urinary frequency PMF Past Medical History Medical History Anxiety Chronic pancreatitis Colitis Cyclic vomiting syndrome Cyclical vomiting Depression Gastroenteritis GERD (gastroesophageal reflux disease) Hypertension IBD (inflammatory bowel disease) Kidney stones Pancreatitis Surgical History Surgical History Hx of cholecystectomy Family History Family History (System 03/18/21 @ 09:35 by Ying Chand) Grandparent Acute myocardial infarction Social History Social History Smoking packs per day: 1 Smoking cigarettes per day: 20.0 Years smoked: 20 Smoking pack-years: 20.00 Smoking status: Current every day smoker Tobacco type: cigarettes Alcohol intake: never Substance use: current Substance use type: marijuana Last use: couple days ago Gender identity (if verbalized by the patient): Male Sexual Orientation (if Verbalized by the Patient): Straight or Heterosexual Spiritual care concerns: No Exam Narrative: GENERAL: Uncomfortable-appearing, well-nourished, and in no acute distress. HEAD: Normocephalic, atraumatic. CHEST: Clear to auscultation. No respiratory distress. HEART: Regular rate and rhythm. Normal peripheral pulses. ABDOMEN: Soft, diffuse tenderness, nondistended. EXTREMITIES: Normal range of motion. No edema. SKIN: Warm, dry, no rash. NEURO: Alert and oriented x3. PSYCH: Normal mood and affect. Course Course Emergency Course: Patient reports nausea improved with Compazine. Still having some abdominal discomfort. Discussed that if it was likely related to persistent retching over the last week. There is no evidence of pancreatitis
[2021-03-18] MEDS: SODIUM CHLORIDE 0.9% IV 1,000 ML 999 ML IV CONT (22:43)
[2021-03-18] MEDS: PROCHLORPERAZINE EDISYLATE 10 MG/2 ML VIAL IV PUSH (22:44)
[2021-03-18] MEDS: FAMOTIDINE 20 MG/2 ML VIAL IV PUSH (22:49)
[2021-03-19 00:49] VITALS: BP 139/105; PULSE 90; RESP 18; O2SAT 98
[2021-03-19 01:27] VITALS: BP 141/97; PULSE 88; RESP 18; O2SAT 98
== END 2021-03-19 01:28 | disposition home or self-care (01) ==
PROVIDERS: Emergency Medicine; Emergency Provider Emergency Medicine
DX: R11.15 Cyclical vomiting syndrome unrelated to migraine (principal); I10 Essential (primary) hypertension; K86.1 Other chronic pancreatitis; K21.9 Gastro-esophageal reflux disease without esophagitis; K58.9 Irritable bowel syndrome, unspecified; Z87.442 Personal history of urinary calculi; F17.210 Nicotine dependence, cigarettes, uncomplicated
CPT/HCPCS: 36415; 80053; 81001; 83690; 85025; 96361; 96374; 96375; 99284; J0780; J7030

== ENCOUNTER 2021-04-30 16:00 | Emergency (ER) | payer OTHER, SELFPAY ==
[2021-04-30 16:02] VITALS: BP 163/110; PULSE 120; RESP 16; TEMP 35.7; O2SAT 100
[2021-04-30 19:16] VITALS: BP 144/85; PULSE 84; TEMP 35.8; O2SAT 100
[2021-04-30] MEDS: LACTATED RINGERS 1,000 ML 999 ML IV CONT (21:04)
[2021-04-30] MEDS: FAMOTIDINE 20 MG/2 ML VIAL IV PUSH (21:04)
[2021-04-30] MEDS: PANTOPRAZOLE SODIUM IV 40 MG VIAL IV PUSH (21:04)
[2021-04-30 21:10] LABS: Basophils Percent Auto 0.2 % (0.2-1.2); Hematocrit 35.6 % (42.0-52.0); Hemoglobin 11.5 g/dL (14.0-18.0); Immature Granulocyte Absolute 0.05 K/mm3 (0.00-0.031); Immature Granulocyte Percent A 0.4 % (0-0.5); Lymphocytes Percent Auto 6.3 % (18.3-44.2); Mean Corpuscular HGB Conc 32.3 g/dl (32-36); Mean Corpuscular Hemoglobin 26.6 pg (26-34); Mean Corpuscular Volume 82.2 fl (80-100); Mean Platelet Volume 9.9 fl (7.4-10.4); Monocytes Absolute Auto 0.6 K/mm3 (0.1-0.6); Neutrophils Absolute Auto 11.1 K/mm3 (1.3-6.7); Neutrophils Percent Auto 88.1 % (45.5-73.1); Platelet Count Result 296 k/mm3 (150-375); Red Blood Count 4.33 M/mm3 (4.6-6.20); Red Cell Distribution Width 16.3 % (11.5-14.5); White Blood Count 12.6 K/mm3 (4.5-10.0)
--- NOTE | 2021-04-30 21:20 | ED.ABDPAIN ---
HPI - Abdominal Pain General Chief Complaint: Abdominal Pain Stated Complaint: abd pain, n/v Time Seen by Provider: 04/30/21 21:09 Source: patient Mode of arrival: ambulatory Limitations: no limitations History of Present Illness HPI narrative: Patient is a 40-year-old male complaining of epigastric pain accompanied by nausea and vomiting that started few hours prior to arrival. Patient states that his pain is an 8 out of 10, burning, nonradiating. States he has a history of pancreatitis and gastritis and the only thing that works for his abdominal pain is Dilaudid. Patient has had multiple ER visits for the same complaints, along with multiple CT scan of his abdomen pelvis. Related Data Home Medications Medication Instructions Recorded Confirmed [id number]-oftcotik-qtsqldj [Creon] 1 cap PO TID 03/28/20 pantoprazole PO 04/19/20 duloxetine 20 mg PO BID 08/08/20 Creon 2 cap PO TIDWM 01/22/21 01/23/21 duloxetine 60 mg PO BID 01/22/21 01/23/21 ondansetron HCl 4 mg PO QID PRN 01/22/21 01/23/21 omeprazole 20 mg PO BID 01/23/21 01/23/21 Allergies Allergy/AdvReac Type Severity Reaction Status Date / Time doxycycline Allergy Unknown Unknown Verified 04/30/21 21:03 metoclopramide Allergy Unknown Unknown Verified 04/30/21 21:03 sulfamethoxazole Allergy Unknown Unknown Verified 04/30/21 21:03 trimethoprim Allergy Unknown Unknown Verified 04/30/21 21:03 Sulfa (Sulfonamide AdvReac Seizure Verified 04/30/21 21:03 Antibiotics) Review of Systems Review of Systems: All systems reviewed & are unremarkable except as noted in HPI and below Constitutional: Constitutional: Denies body ache(s), Denies chills, Denies excessive sweating, Denies fatigue, Denies fever(s), Denies headache(s), Denies lethargy, Denies malaise, Denies weakness and Denies weight loss Eyes: Eyes: Denies blurry vision, Denies change in vision and Denies loss of vision ENT: Denies dizziness, Denies ear discharge, Denies headache(s), Denies lip swelling, Denies epistaxis, Denies nasal congestion, Denies neck pain, Denies throat swelling and Denies tongue swelling Cardiovascular: Cardiovascular: Denies chest pain, Denies chest pain at rest, Denies chest pain with activity, Denies diaphoresis, Denies rapid heart rate, Denies edema, Denies irregular heart rhythm, Denies lightheadedness, Denies palpitations, Denies dyspnea and Denies dyspnea on exertion Respiratory: Respiratory: Denies chest congestion, Denies cough, Denies hemoptysis, Denies dyspnea and Denies dyspnea on exertion Gastrointestinal: Gastrointestinal: Denies melena, Denies hematochezia, Denies diarrhea and Denies hematemesis Musculoskeletal: Musculoskeletal: Denies abnormal gait, Denies deformity, Denies joint swelling, Denies limited range of motion, Denies neck pain and Denies numbness Neurologic: Denies Abnormal speech present, Denies abnormal gait, Denies confusion, Denies dizziness, Denies headache(s), Denies focal weakness, Denies loss of vision, Denies numbness, Denies Other visual disturbances, Denies Sensory deficit (Neuro) and Denies weakness Psychiatric: Psychiatric: Denies confusion, Denies depression, Denies auditory hallucinations, Denies homicidal ideation and Denies suicidal ideation Endocrine: Endocrine: Denies cold intolerance, Denies excessive sweating, Denies fatigue, Denies heat intolerance and Denies palpitations Hematologic/Lymphatic: Hematologic/Lymphatic: Denies easy bleeding and Denies easy bruising Allergic/Immunologic: Allergic/Immunologic: Denies lip swelling, Denies throat swelling and Denies tongue swelling PMFSH Past Medical History Medical History Anxiety Chronic pancreatitis Colitis Cyclic vomiting syndrome Cyclical vomiting Depression Gastroenteritis GERD (gastroesophageal reflux disease) Hypertension IBD (inflammatory bowel disease) Kidney stones Pancreatitis Surgical History Surgical History (Reviewed
[2021-04-30 21:28] LABS: Alanine Aminotransferase 18 U/L (4-50); Albumin Level 4.5 g/dL (3.5-5.1); Alkaline Phosphatase 87 U/L (38-126); Anion Gap 7 mmol/L (8-16); Aspartate Amino Transferase 34 U/L (17-59); Bilirubin,Total 0.5 mg/dL (0.2-1.3); Blood Urea Nitrogen 7 mg/dL (9-20); Calcium 9.4 mg/dL (8.4-10.2); Carbon Dioxide 26 mmol/L (22-30); Chloride 101 mmol/L (98-107); Estimated CRCL calculation 124 ml/min; Estimated Glomerular Filt Rate > 60; Glucose 118 mg/dL (65-110); Lipase 64 U/L (23-300); Sodium 134 mmol/L (137-145)
[2021-04-30] MEDS: ONDANSETRON INJ 4 MG/2 ML VIAL IV PUSH (22:11)
[2021-04-30 22:50] LABS: Add Urine Microscopic? YES; Appearance Urine Cloudy (Clear); Bilirubin Urine Negative (Negative); Blood Urine Negative (Negative); Budding Yeast Urine Present /hpf; Color Urine Yellow (Yellow); Glucose Urine UA Negative (Negative); Ketones Urine 1+ mg/dL (Negative); Leukocyte Esterase Ur Negative LEU/UL (Negative); Mucus Urine Rare /lpf; Nitrate Urine Negative (Negative); Protein Urine 1+ mg/dL (Negative); Specific Grav Ur 1.016 (1.001-1.035); Urobilinogen Urine Negative mg/dL (<2.0); WBC Urine 0-3 /hpf
[2021-05-01 03:13] VITALS: PULSE 74; RESP 18; O2SAT 99
== END 2021-05-01 01:35 | disposition home or self-care (01) ==
PROVIDERS: Emergency Medicine; Emergency Provider Emergency Medicine; PCP Family Medicine
DX: K29.70 Gastritis, unspecified, without bleeding (principal); K21.9 Gastro-esophageal reflux disease without esophagitis; I10 Essential (primary) hypertension; K58.9 Irritable bowel syndrome, unspecified; Z87.442 Personal history of urinary calculi; K86.1 Other chronic pancreatitis; F17.210 Nicotine dependence, cigarettes, uncomplicated
CPT/HCPCS: 36415; 80053; 81001; 83690; 85025; 96361; 96374; 96375; 99284; C9113; J2405; J7120

== ENCOUNTER 2021-05-06 14:48 | Emergency (ER) | payer OTHER, SELFPAY ==
[2021-05-06 15:10] VITALS: BP 130/93; PULSE 88; RESP 18; TEMP 36.6; O2SAT 96
--- NOTE | 2021-05-06 16:25 | PC.NURSE ---
1625- Pt ambulated out of ED with steady gait.
== END 2021-05-07 00:38 | disposition left against medical advice (07) ==
LOC: ANHED 16:53
DX: R11.2 Nausea with vomiting, unspecified (principal)
CPT/HCPCS: 99199

== ENCOUNTER 2021-06-03 13:22 | Emergency (ER) | payer OTHER, SELFPAY ==
[2021-06-03 13:56] VITALS: BP 157/103; PULSE 84; RESP 20; TEMP 36.7; O2SAT 100
== END 2021-06-03 16:00 | disposition left against medical advice (07) ==
LOC: ANHED 16:39
DX: R10.9 Unspecified abdominal pain (principal)
CPT/HCPCS: 99199

== ENCOUNTER 2021-07-06 18:43 | Emergency (ER) | payer OTHER, SELFPAY ==
[2021-07-06 18:45] VITALS: BP 130/84; PULSE 105; RESP 18; TEMP 36.2; O2SAT 100
[2021-07-06 19:10] LABS: Basophils Absolute Auto 0.1 K/mm3 (0.0-0.1); Basophils Percent Auto 0.5 % (0.2-1.2); Eosinophils Absolute Auto 0.2 K/mm3 (0-0.3); Eosinophils Percent Auto 2.1 % (0-4.4); Hematocrit 38.9 % (42.0-52.0); Hemoglobin 12.1 g/dL (14.0-18.0); Immature Granulocyte Absolute 0.04 K/mm3 (0.00-0.031); Immature Granulocyte Percent A 0.4 % (0-0.5); Lymphocytes Absolute Auto 2.85 K/mm3 (0.9-3.2); Lymphocytes Percent Auto 27.3 % (18.3-44.2); Mean Corpuscular HGB Conc 31.1 g/dl (32-36); Mean Corpuscular Volume 83.5 fl (80-100); Mean Platelet Volume 9.4 fl (7.4-10.4); Monocytes Absolute Auto 1.3 K/mm3 (0.1-0.6); Monocytes Percent Auto 12.2 % (2.6-8.5); Neutrophils Percent Auto 57.5 % (45.5-73.1); Platelet Count Result 378 k/mm3 (150-375); Red Blood Count 4.66 M/mm3 (4.6-6.20); Red Cell Distribution Width 17.9 % (11.5-14.5); White Blood Count 10.4 K/mm3 (4.5-10.0)
[2021-07-06 19:20] LABS: Alanine Aminotransferase 20 U/L (4-50); Albumin Level 4.6 g/dL (3.5-5.1); Alkaline Phosphatase 86 U/L (38-126); Anion Gap 5 mmol/L (8-16); Aspartate Amino Transferase 30 U/L (17-59); Bilirubin,Total 0.4 mg/dL (0.2-1.3); Blood Urea Nitrogen 16 mg/dL (9-20); Calcium 9.3 mg/dL (8.4-10.2); Carbon Dioxide 30 mmol/L (22-30); Chloride 104 mmol/L (98-107); Estimated CRCL calculation 99 ml/min; Estimated Glomerular Filt Rate > 60; Glucose 111 mg/dL (65-110); Lipase 318 U/L (23-300); Potassium 3.9 mmol/L (3.4-5.0); Sodium 139 mmol/L (137-145)
--- NOTE | 2021-07-06 19:43 | ED.GENADULT ---
HPI - General Adult General Chief complaint: Nausea/Vomiting/Diarrhea Stated complaint: abd pain/ nausea Time Seen by Provider: 07/06/21 18:53 Source: patient and RN notes reviewed History of Present Illness HPI narrative: 41-year-old male with a history of pancreatitis presents emerged department complaint of acute onset of mid epigastric pain with associated nausea without vomiting. Patient states that he has been told that his previous episodes of abdominal pain and pancreatitis are due to sphincter of Oddi dysfunction. Patient does have follow-up with a GI physician from [facility] and is going to have an EGD scheduled. Patient states that his symptoms started prior to arrival. Patient states this has happened multiple times before and his symptoms are typically helped with antiemetics, pain meds and a PPI. Patient denies any chest pain or shortness of breath. Patient denies any vomiting or diarrhea. Patient denies any hematemesis or hematochezia. Related Data Home Medications Medication Instructions Recorded Confirmed [id number] [Creon] 1 cap PO TID 03/28/20 pantoprazole PO 04/19/20 duloxetine 20 mg PO BID 08/08/20 Creon 2 cap PO TIDWM 01/22/21 01/23/21 duloxetine 60 mg PO BID 01/22/21 01/23/21 ondansetron HCl 4 mg PO QID PRN 01/22/21 01/23/21 omeprazole 20 mg PO BID 01/23/21 01/23/21 Allergies Allergy/AdvReac Type Severity Reaction Status Date / Time doxycycline Allergy Unknown Unknown Verified 04/30/21 21:03 metoclopramide Allergy Unknown Unknown Verified 04/30/21 21:03 sulfamethoxazole Allergy Unknown Unknown Verified 04/30/21 21:03 trimethoprim Allergy Unknown Unknown Verified 04/30/21 21:03 Sulfa (Sulfonamide AdvReac Seizure Verified 04/30/21 21:03 Antibiotics) Review of Systems Review of Systems: CONSTITUTIONAL: Denies fever, chills, or sweats. EYES: Denies visual changes, redness, or discharge. ENT: Denies rhinorrhea, congestion, sore throat, or otalgia. CARDIOVASCULAR: Denies chest pain, palpitations, or edema. RESPIRATORY: Denies cough or dyspnea. GASTROINTESTINAL: Mid abdominal pain/epigastric pain with associated nausea without vomiting GENITOURINARY: Denies dysuria or hematuria. SKIN: Denies rash or itching. MUSCULOSKELETAL: Denies back pain, joint pain, or myalgia. [facility] Past Medical History Medical History Anxiety Chronic pancreatitis Colitis Cyclic vomiting syndrome Cyclical vomiting Depression Gastroenteritis GERD (gastroesophageal reflux disease) Hypertension IBD (inflammatory bowel disease) Kidney stones Pancreatitis Surgical History Surgical History Hx of cholecystectomy Family History Family History Grandparent Acute myocardial infarction Social History Social History Smoking packs per day: 1 Smoking cigarettes per day: 20.0 Years smoked: 20 Smoking pack-years: 20.00 Smoking status: Current every day smoker Tobacco type: cigarettes Alcohol intake: never Substance use: current Substance use type: marijuana Last use: couple days ago Gender identity (if verbalized by the patient): Male Sexual Orientation (if Verbalized by the Patient): Straight or Heterosexual Spiritual care concerns: No Exam Narrative: APPEARANCE: Well appearing, no pain, no distress, well-nourished. HEAD: normocephalic, atraumatic. NECK: Supple. No adenopathy, no masses. RESPIRATORY: Airway patent, respirations nonlabored. Clear to auscultation bilaterally, no rales, rhonchi, wheezing. CARDIOVASCULAR: Regular rate and rhythm without murmurs rubs or gallops. ABDOMINAL: Epigastric tenderness to palpation. Otherwise benign abdominal exam. No signs of peritonitis MUSCULOSKELETAL: Moves all extremities. Strength/ROM intact, No edema, No c
[2021-07-06] MEDS: PANTOPRAZOLE SODIUM IV 40 MG VIAL IV PUSH (19:51)
[2021-07-06] MEDS: HYDROmorphone HCL INJ (*CRX) 1 MG/ML SYR IV PUSH ×2 (19:51→21:39)
[2021-07-06] MEDS: ONDANSETRON INJ 4 MG/2 ML VIAL IV PUSH (19:51)
[2021-07-06 20:07] LABS: Add Urine Microscopic? YES; Amorphous Sediment Urine Few; Appearance Urine Clear (Clear); Bilirubin Urine Negative (Negative); Blood Urine Negative (Negative); Color Urine Yellow (Yellow); Glucose Urine UA Negative (Negative); Ketones Urine Negative (Negative); Leukocyte Esterase Ur Negative LEU/UL (Negative); Nitrate Urine Negative (Negative); Protein Urine Negative (Negative); RBC Urine 0-2 /hpf (0-2); Specific Grav Ur 1.015 (1.001-1.035); Urobilinogen Urine Negative mg/dL (<2.0); WBC Urine 0-3 /hpf
[2021-07-06] MEDS: SODIUM CHLORIDE 0.9% IV 1,000 ML 999 ML IV CONT (21:39)
== END 2021-07-06 22:26 | disposition home or self-care (01) ==
PROVIDERS: Emergency Provider Emergency Medicine
DX: R10.13 Epigastric pain (principal); K86.1 Other chronic pancreatitis; I10 Essential (primary) hypertension; K21.9 Gastro-esophageal reflux disease without esophagitis; K58.9 Irritable bowel syndrome, unspecified; F41.9 Anxiety disorder, unspecified; F32.A Depression, unspecified; Z87.442 Personal history of urinary calculi; F17.210 Nicotine dependence, cigarettes, uncomplicated
CPT/HCPCS: 36415; 80053; 81001; 83690; 85025; 96361; 96374; 96375; 96376; 99284; C9113; J1170; J2405; J7030

== ENCOUNTER 2021-07-08 16:33 | Observation (INO) | payer OTHER, SELFPAY ==
--- NOTE | ~2021-07-08 | CT_ITS ---
EXAMINATION: CT abdomen pelvis w con DATE: 07/08/2021 21:23 INDICATION: Right upper quadrant abdominal pain TECHNIQUE: Computed tomography (CT) of the abdomen and pelvis was performed with 100 CC Omnipaque 350 intravenous contrast. Automated exposure control and iterative reconstruction technique were employe d. Exam dose: 292.95 mGy-cm total exam DLP. COMPARISON: 02/07/2021 CT abdomen pelvis FINDINGS: The lung bases are clear. Normal heart size. No pericardial or pleural effusion. Status post cholecystectomy. There is pneumobilia, likely secondary to cholecystectomy. No hepatic, splenic, pancreatic, and adrenal or renal space-occupying mass lesion. No bile duct or pa ncreatic duct dilatation. No urinary tract calculus or hydroureteronephrosis. Normal caliber of the abdominal aorta. No intraperitoneal or retroperitoneal or pelvic mass lesion or adenopathy or ascites. Prostate enlargement and calcifications. The urinary bladder is unremarkable. Normal appendix. No bowel obstruction, bowel wall thickening, pneumatosis or intraperitoneal free air . There is mild colonic diverticulosis; no CT evidence of diverticulitis. Small fat-containing umbilical hernia. No suspicious osteolytic or osteoblastic lesions. IMPRESSION: Pneumobilia likely secondary to cholecystectomy Minimal colonic diverticulosis; no CT evidence of diverticulitis Normal appendix Prostate enlargement and calcifications Reviewed, dictated and finalized at [facility] Reviewed, dictated and finalized at [facility]. 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
[2021-07-08 16:34] VITALS: BP 145/82; PULSE 95; RESP 20; TEMP 36.9; O2SAT 95
[2021-07-08 20:29] VITALS: BP 113/82; PULSE 72; RESP 16; O2SAT 98
[2021-07-08 20:43] LABS: Basophils Percent Auto 0.2 % (0.2-1.2); Eosinophils Absolute Auto 0.1 K/mm3 (0-0.3); Eosinophils Percent Auto 0.6 % (0-4.4); Hematocrit 36.9 % (42.0-52.0); Hemoglobin 11.7 g/dL (14.0-18.0); Immature Granulocyte Absolute 0.04 K/mm3 (0.00-0.031); Immature Granulocyte Percent A 0.3 % (0-0.5); Lymphocytes Absolute Auto 1.98 K/mm3 (0.9-3.2); Lymphocytes Percent Auto 15.4 % (18.3-44.2); Mean Corpuscular HGB Conc 31.7 g/dl (32-36); Mean Corpuscular Hemoglobin 26.5 pg (26-34); Mean Corpuscular Volume 83.7 fl (80-100); Mean Platelet Volume 9.5 fl (7.4-10.4); Monocytes Absolute Auto 1.1 K/mm3 (0.1-0.6); Monocytes Percent Auto 8.4 % (2.6-8.5); Neutrophils Absolute Auto 9.7 K/mm3 (1.3-6.7); Neutrophils Percent Auto 75.1 % (45.5-73.1); Platelet Count Result 366 k/mm3 (150-375); Red Blood Count 4.41 M/mm3 (4.6-6.20); Red Cell Distribution Width 17.9 % (11.5-14.5); White Blood Count 12.9 K/mm3 (4.5-10.0)
--- NOTE | 2021-07-08 20:50 | ECG_ITS ---
Measurements Intervals [place] Rate: 63 P: 1 CO: 95 QRS: 25 QRSD: 98 T: 29 QT: 391 QTc: 401 Interpretive Statements SINUS RHYTHM WITH SHORT CO INTERVAL BORDERLINE ECG Electronically Signed On 07-08-2021 22:40:08 RN INTERVENTIONAL by Bebo Stark D.O.
[2021-07-08 20:57] LABS: Alanine Aminotransferase 19 U/L (4-50); Albumin Level 4.6 g/dL (3.5-5.1); Alkaline Phosphatase 77 U/L (38-126); Anion Gap 6 mmol/L (8-16); Aspartate Amino Transferase 28 U/L (17-59); Bilirubin,Total 0.6 mg/dL (0.2-1.3); Blood Urea Nitrogen 11 mg/dL (9-20); Calcium 9.2 mg/dL (8.4-10.2); Carbon Dioxide 29 mmol/L (22-30); Chloride 104 mmol/L (98-107); Estimated CRCL calculation 99 ml/min; Estimated Glomerular Filt Rate > 60; Glucose 97 mg/dL (65-110); Lipase 1579 U/L (23-300); Potassium 4.5 mmol/L (3.4-5.0); Sodium 139 mmol/L (137-145)
[2021-07-08] MEDS: LACTATED RINGERS 1,000 ML 999 ML IV CONT ×2 (21:03→22:54)
[2021-07-08] MEDS: PANTOPRAZOLE SODIUM IV 40 MG VIAL IV PUSH (21:03)
[2021-07-08] MEDS: DICYCLOMINE HCL INJ 20 MG/2 ML VIAL IM (21:03)
[2021-07-08] MEDS: HYDROmorphone HCL INJ (*CRX) 1 MG/ML SYR IV PUSH (21:27)
[2021-07-08] MEDS: ONDANSETRON INJ 4 MG/2 ML VIAL IV PUSH (21:28)
[2021-07-08 21:50] LABS: Add Urine Microscopic? YES; Amorphous Sediment Urine Few; Appearance Urine Cloudy (Clear); Bilirubin Urine Negative (Negative); Blood Urine Negative (Negative); Color Urine Yellow (Yellow); Glucose Urine UA Negative (Negative); Ketones Urine Negative (Negative); Leukocyte Esterase Ur Negative LEU/UL (Negative); Nitrate Urine Negative (Negative); Protein Urine Negative (Negative); Specific Grav Ur 1.021 (1.001-1.035); Squamous Epithelial Cell Urine Rare /hpf (Few); Urobilinogen Urine Negative mg/dL (<2.0); WBC Urine 0-3 /hpf
--- NOTE | 2021-07-08 22:10 | ED.ABDPAIN ---
HPI - Abdominal Pain General Chief Complaint: Abdominal Pain Stated Complaint: ABD PAIN Time Seen by Provider: 07/08/21 20:23 Source: patient, RN notes reviewed and old records reviewed Mode of arrival: ambulatory Limitations: no limitations History of Present Illness HPI narrative: This is a 41 year old male with history of pancreatitis and dysfunction of sphincter of oddi who presents for evaluation of right upper abdominal pain with nausea and vomiting. Patient was evaluated in ER 2 days ago for similar pain. He states his pain had resolved but it returned just prior to coming to ER. He has associated nausea and vomiting as well. He had normal BM today and he denies fever or chills. He states he needs zofran, pepcid and Dilaudid. He denies any food that could exacerbate symptoms. Symptoms started when he was given something like gatorade. Related Data Home Medications Medication Instructions Recorded Confirmed [id number] [Creon] 1 cap PO TID 03/28/20 07/09/21 Creon 2 cap PO TIDWM 01/22/21 07/09/21 duloxetine 60 mg PO BID 01/22/21 07/09/21 omeprazole 20 mg PO BID 01/23/21 07/09/21 Allergies Allergy/AdvReac Type Severity Reaction Status Date / Time doxycycline Allergy Unknown Gastrointestinal Verified 07/09/21 00:44 Upset metoclopramide Allergy Unknown Muscle Verified 07/09/21 00:44 Spasms sulfamethoxazole Allergy Unknown Gastrointestinal Verified 07/09/21 00:44 Upset trimethoprim Allergy Unknown Gastrointestinal Verified 07/09/21 00:44 Upset Sulfa (Sulfonamide AdvReac Gastrointestinal Verified 07/09/21 00:44 Antibiotics) Upset Review of Systems Review of Systems: All systems reviewed & are unremarkable except as noted in HPI and below PMFSH Past Medical History Medical History Anxiety Chronic pancreatitis Colitis Cyclic vomiting syndrome Cyclical vomiting Depression Gastroenteritis GERD (gastroesophageal reflux disease) Hypertension IBD (inflammatory bowel disease) Kidney stones Pancreatitis Surgical History Surgical History Hx of cholecystectomy Family History Family History Grandparent Acute myocardial infarction Social History Social History Smoking packs per day: 1 Smoking cigarettes per day: 20.0 Years smoked: 20 Smoking pack-years: 20.00 Smoking status: Current every day smoker Tobacco type: cigarettes Alcohol intake: never Substance use: current Substance use type: marijuana Last use: PROBABLY ABOUT A WEEK AGOago Gender identity (if verbalized by the patient): Male Sexual Orientation (if Verbalized by the Patient): Straight or Heterosexual Spiritual care concerns: No Exam Const: General: no acute distress and alert Orientation/consciousness: patient oriented x3 Eyes: EOM: EOMs intact bilaterally Resp: Effort & Inspection: normal respiratory effort and no retractions Auscultation: clear to auscultation bilaterally Cardio: Rate: regular rate Rhythm: regular rhythm Heart sounds: no murmurs GI: GI Palp: Yes Soft to palpation, Yes Tenderness to palpation present (GI) (Diffuse but worse RUQ, no guarding or rebound), No Guarding due to palpation present (GI) and No Rigid due to palpation Auscultation: normal bowel sounds Skin: General skin exam: normal color Rashes: no rashes Neuro: General: patient oriented x3, moves all extremities and CN's II-XI intact bilaterally Psych: Mental Status: mental status grossly normal Affect: normal affect Course Reevaluation(s) Reevaluation #1: I Discussed with patient he will be admitted for acute on chronic pancreatitis. Date: 07/08/21 Time: 23:00 Consultations Consultation #1: I discussed case and labs with Dr. samayoa. She accepts patient. RE
[2021-07-08] MEDS: HYDROmorphone HCL INJ (*CRX) 1 MG/ML SYR 0.5 MG IV PUSH (22:52)
--- NOTE | 2021-07-08 23:15 | PC.NURSE ---
Assuming care of pt.
[2021-07-09] VITALS (7 sets, daily range): BP systolic 101–129; BP diastolic 74–99; PULSE 60–77; RESP 12–18; TEMP 36.1–36.7; O2SAT 96–100; BMI 24.1
--- NOTE | 2021-07-09 00:30 | ADMGEN ---
This patient, Donovan Bailey, was admitted to Medical Room 348-01. Patient/family oriented to hospital policies and general routines including ID bracelet, bed and alarms, visiting hours, pain management, procedures, bathroom and other care routines, personal items, smoking policy, room service/diet, and visiting hours. Information on how to activate the Rapid Response Team has been discussed. Patient/Family are encouraged to report perceived risks to care and to ask questions if they do not understand what they are told or what they should do.
[2021-07-09] MEDS: KETOROLAC 30 MG/ML VIAL (*BKC) IV PUSH ×4 (00:33→17:05)
[2021-07-09] MEDS: SODIUM CHLORIDE 0.9% IV 1,000 ML 125 ML IV CONT ×3 (00:35→17:06)
[2021-07-09] MEDS: HYDROmorphone HCL INJ (*CRX) 1 MG/ML SYR IV PUSH ×10 (01:08→22:37)
[2021-07-09] MEDS: ONDANSETRON INJ 4 MG/2 ML VIAL IV PUSH (04:45)
[2021-07-09 05:40] LABS: Basophils Absolute Auto 0.1 K/mm3 (0.0-0.1); Basophils Percent Auto 0.7 % (0.2-1.2); Eosinophils Absolute Auto 0.2 K/mm3 (0-0.3); Eosinophils Percent Auto 2.5 % (0-4.4); Hematocrit 32.4 % (42.0-52.0); Hemoglobin 10.4 g/dL (14.0-18.0); Immature Granulocyte Absolute 0.01 K/mm3 (0.00-0.031); Immature Granulocyte Percent A 0.1 % (0-0.5); Lymphocytes Absolute Auto 3.36 K/mm3 (0.9-3.2); Lymphocytes Percent Auto 44.4 % (18.3-44.2); Mean Corpuscular HGB Conc 32.1 g/dl (32-36); Mean Corpuscular Hemoglobin 26.3 pg (26-34); Mean Platelet Volume 9.4 fl (7.4-10.4); Monocytes Absolute Auto 1.1 K/mm3 (0.1-0.6); Monocytes Percent Auto 14.3 % (2.6-8.5); Neutrophils Absolute Auto 2.9 K/mm3 (1.3-6.7); Platelet Count Result 308 k/mm3 (150-375); Red Blood Count 3.95 M/mm3 (4.6-6.20); Red Cell Distribution Width 17.4 % (11.5-14.5); White Blood Count 7.6 K/mm3 (4.5-10.0)
[2021-07-09 05:51] LABS: Alanine Aminotransferase 16 U/L (4-50); Albumin Level 3.7 g/dL (3.5-5.1); Alkaline Phosphatase 64 U/L (38-126); Anion Gap 4 mmol/L (8-16); Aspartate Amino Transferase 25 U/L (17-59); Bilirubin,Total 0.6 mg/dL (0.2-1.3); Blood Urea Nitrogen 9 mg/dL (9-20); Calcium 8.7 mg/dL (8.4-10.2); Carbon Dioxide 29 mmol/L (22-30); Chloride 106 mmol/L (98-107); Estimated CRCL calculation 99 ml/min; Estimated Glomerular Filt Rate > 60; Glucose 82 mg/dL (65-110); Lipase 462 U/L (23-300); Sodium 139 mmol/L (137-145)
[2021-07-09] MEDS: PANTOPRAZOLE SODIUM IV 40 MG VIAL IV PUSH (09:25)
--- NOTE | 2021-07-09 11:01 | PM.IMHP ---
H&P: HPI History of Present Illness Date/Time: 07/09/21 11:01 Patient is a 41-year-old male with a past medical history of frequent pancreatitis, sphincter of OD eye, depression, and hypertension. He presented to [facility] Emergency Department for further evaluation of his right upper abdominal pain with associated nausea and vomiting. Patient was in the emergency department 2 days ago for similar pain and was discharged. Patient reports that the pain is resolved but then returned just prior to coming to the emergency department. He denies any fever, chills, chest pain or shortness of breath. Patient had requested for Zofran, Pepcid and Dilaudid in the emergency department. The ED physician obtain labs and imaging. WBC 12.9, hemoglobin 11.7, hematocrit 36.9, platelet 366, sodium 139, potassium 4.5, chloride 104, BUN 11, creatinine 0.9 normal LFTs and elevated lipase of 1579. UA was negative. CT of the abdomen and pelvis: Pneumobilia likely secondary to cholecystectomy, Minimal colonic diverticulosis; no CT evidence of diverticulitis, Normal appendix, Prostate enlargement and calcifications. Patient is being admitted for acute pancreatitis. IV fluids, pain management. He will be NPO during hospitalization until his nausea resolved. Chief Complaint: Acute abdominal pain Review of Systems Review of Systems: All systems reviewed & are unremarkable except as noted in HPI and below PMFSH Past Medical History Medical History Anxiety Chronic pancreatitis Colitis Cyclic vomiting syndrome Cyclical vomiting Depression Gastroenteritis GERD (gastroesophageal reflux disease) Hypertension IBD (inflammatory bowel disease) Kidney stones Pancreatitis Surgical History Surgical History Hx of cholecystectomy Family History Family History Grandparent Acute myocardial infarction Social History Social History Smoking packs per day: 1 Smoking cigarettes per day: 20.0 Years smoked: 20 Smoking pack-years: 20.00 Smoking status: Current every day smoker Tobacco type: cigarettes Alcohol intake: never Substance use: current Substance use type: marijuana Last use: PROBABLY ABOUT A WEEK AGOago Gender identity (if verbalized by the patient): Male Sexual Orientation (if Verbalized by the Patient): Straight or Heterosexual Spiritual care concerns: No Meds Home Medications and Allergies Home Medications Medication Instructions Recorded Confirmed Type swjjwd-fvpvkqsc-abjohqh [Creon] 1 cap PO TID 03/28/20 07/09/21 History ondansetron HCl [Zofran] 4 mg PO Q6H PRN #10 tablet 05/27/20 07/09/21 Rx Creon 2 cap PO TIDWM 01/22/21 07/09/21 History duloxetine 60 mg PO BID 01/22/21 07/09/21 History omeprazole 20 mg PO BID 01/23/21 07/09/21 History Allergies Allergy/AdvReac Type Severity Reaction Status Date / Time doxycycline Allergy Unknown Gastrointestinal Verified 07/09/21 00:44 Upset metoclopramide Allergy Unknown Muscle Verified 07/09/21 00:44 Spasms sulfamethoxazole Allergy Unknown Gastrointestinal Verified 07/09/21 00:44 Upset trimethoprim Allergy Unknown Gastrointestinal Verified 07/09/21 00:44 Upset Sulfa (Sulfonamide AdvReac Gastrointestinal Verified 07/09/21 00:44 Antibiotics) Upset Vital Signs Vital Signs - 24 hr 07/08/21 16:34 07/08/21 20:29 07/09/21 00:05 Temperature 98.5 F Pulse Rate 95 72 62 Respiratory Rate 20 16 18 Blood Pressure 145/82 H 113/82 129/99 H Pulse Oximetry 95 98 100 07/09/21 01:00 07/09/21 01:17 07/09/21 04:38 Temperature 97 F L 97.2 F L Pulse Rate 60 77 Respiratory Rate 18 16 15 Blood Pressure 111/76 117/76 Pulse Oximetry 100 98 97 07/09/21 08:56 07/09/21 11:00 Temperature 98.1 F 97 F L Pulse Rate 64
--- NOTE | 2021-07-09 11:11 | PC.NURSE ---
On 07/09/21, the student, Melissa Sterling, provided care and completed [facility] documentation on this patient. I have reviewed the student's documentation and agree with the findings.
[2021-07-09] MEDS: NICOTINE (*PBKC) 14 MG PATCH 1 PATCH TRANSDERM (13:00)
[2021-07-10] MEDS: KETOROLAC 30 MG/ML VIAL (*BKC) IV PUSH (00:10)
[2021-07-10 00:22] VITALS: BP 137/79; PULSE 87; RESP 18; TEMP 37.1; O2SAT 98
[2021-07-10] MEDS: HYDROmorphone HCL INJ (*CRX) 1 MG/ML SYR IV PUSH ×4 (00:49→08:14)
[2021-07-10] MEDS: SODIUM CHLORIDE 0.9% IV 1,000 ML 125 ML IV CONT ×2 (00:49→08:17)
[2021-07-10] MEDS: ONDANSETRON INJ 4 MG/2 ML VIAL IV PUSH ×2 (02:56→08:13)
[2021-07-10 06:48] VITALS: BP 130/76; PULSE 81; RESP 18; TEMP 36.7; O2SAT 98
[2021-07-10 07:45] LABS: Basophils Percent Auto 0.3 % (0.2-1.2); Eosinophils Absolute Auto 0.1 K/mm3 (0-0.3); Eosinophils Percent Auto 0.8 % (0-4.4); Hematocrit 30.5 % (42.0-52.0); Hemoglobin 9.7 g/dL (14.0-18.0); Immature Granulocyte Absolute 0.05 K/mm3 (0.00-0.031); Immature Granulocyte Percent A 0.5 % (0-0.5); Lymphocytes Absolute Auto 1.27 K/mm3 (0.9-3.2); Lymphocytes Percent Auto 12.6 % (18.3-44.2); Mean Corpuscular HGB Conc 31.8 g/dl (32-36); Mean Corpuscular Hemoglobin 26.5 pg (26-34); Mean Corpuscular Volume 83.3 fl (80-100); Mean Platelet Volume 9.1 fl (7.4-10.4); Monocytes Absolute Auto 1.1 K/mm3 (0.1-0.6); Monocytes Percent Auto 10.9 % (2.6-8.5); Neutrophils Absolute Auto 7.5 K/mm3 (1.3-6.7); Neutrophils Percent Auto 74.9 % (45.5-73.1); Platelet Count Result 303 k/mm3 (150-375); Red Blood Count 3.66 M/mm3 (4.6-6.20); Red Cell Distribution Width 17.2 % (11.5-14.5)
[2021-07-10 08:08] LABS: Alanine Aminotransferase 16 U/L (4-50); Albumin Level 3.5 g/dL (3.5-5.1); Alkaline Phosphatase 74 U/L (38-126); Anion Gap 9 mmol/L (8-16); Aspartate Amino Transferase 25 U/L (17-59); Bilirubin,Total 0.5 mg/dL (0.2-1.3); Blood Urea Nitrogen 8 mg/dL (9-20); Carbon Dioxide 23 mmol/L (22-30); Chloride 108 mmol/L (98-107); Estimated CRCL calculation 125 ml/min; Estimated Glomerular Filt Rate > 60; Glucose 60 mg/dL (65-110); Magnesium 1.9 mg/dL (1.6-2.3); Potassium 3.8 mmol/L (3.4-5.0); Sodium 140 mmol/L (137-145)
[2021-07-10] MEDS: NICOTINE (*PBKC) 14 MG PATCH 1 PATCH TRANSDERM (08:19)
[2021-07-10] MEDS: PANTOPRAZOLE SODIUM IV 40 MG VIAL IV PUSH (08:20)
[2021-07-10] MEDS: DEXTROSE 50% 25 GM/50 ML SYRINGE IV PUSH (08:44)
[2021-07-10 08:53] LABS: Glucose Point of Care 111 mg/dl (65-105)
--- NOTE | 2021-07-10 09:38 | PM.IMPN ---
Progress Note: A&P Assessment and Plan (1) Abdominal pain: Qualifiers: Abdominal location: epigastric Qualified Code(s): R10.13 - Epigastric pain Code(s): R10.9 - Unspecified abdominal pain Status: Acute Assessment and Plan: 2/2 pancreatitis (2) Tobacco dependence: Code(s): F17.200 - Nicotine dependence, unspecified, uncomplicated Status: Acute Assessment and Plan: Smoking cessation counseling given for 3 minutes, will add nicotine patch daily (3) Acute on chronic pancreatitis: Code(s): K85.90 - Acute pancreatitis without necrosis or infection, unspecified; K86.1 - Other chronic pancreatitis Status: Acute Assessment and Plan: Provide aggressive IV fluid resuscitation IV pain management Abdominal pain resolved, changed to clear liquid diet and advance as tolerated. Repeat lipase. CT did not report pancreatitis findings. Provide antiemetics Subjective Date/time seen: 07/10/21 09:39 Patient is alert and oriented this morning. Apparently he has been requesting Dilaudid every 2 hours during the night. Although when discussing the patient's pain since morning he said the pain was related to him being hungry and not actual acute abdominal pain. Decreased IV Dilaudid and providing a clear liquid diet. Patient denies any nausea or episodes of emesis. He continues to receive normal saline at 125 mL an hour.. Home meds were resumed. Pending patient's clinical course may discharge tomorrow Review of Systems Review of Systems: All systems reviewed & are unremarkable except as noted in HPI and below Exam Narrative: General: No acute distress. Mental Status: Awake, alert and oriented to person, place, and time with clear speech. Skin: Skin in warm, dry and intact without rashes or lesions. Head: Normocephalic and atraumatic. Eyes: Conjunctivae are clear without exudates or hemorrhage. Sclera is non-icteric. EOM are intact, PERRLA. Ears: The external ear and canal are non-tender and without swelling or discharge. Nose: Nasal mucosa is pink and moist. Septum midline. Nares patent bilaterally. Throat: Oral mucosa pink and moist with good dentition. Tongue midline. Neck: The neck supple without adenopathy. Trachea midline. No JVD. Cardiac: S1 and S2 regular rate and rhythm. No murmurs, gallops, or rubs auscultated. Respiratory: Chest wall symmetric, nontender and without deformity or trauma. Respirations even and unlabored. Lung sounds are clear to auscultation in all lobes bilaterally without wheezes, rhonchi, or rales. Abdominal: Abdomen soft, round and non- tender to palpation. Bowel sounds present and normoactive in all 4 quadrants. Spine: Neck and back with grossly normal curvature, no deformity in appearance or signs of trauma. Extremities: Upper and lower extremities atraumatic without tenderness or deformity. Full range of motion and muscle strength 5/5 to all extremities bilaterally. Neurological: Full and symmetric motor and light touch sensation bilaterally. Cranial nerves II-XII grossly intact. Objective Data Vital Signs Vital Signs: Vital Signs - 24 hr 07/09/21 11:00 07/09/21 23:39 07/10/21 00:22 Temperature 97 F L 98.7 F Pulse Rate 65 87 Respiratory Rate 15 18 Blood Pressure 101/74 137/79 Pulse Oximetry 96 97 98 07/10/21 06:48 Temperature 98.0 F Pulse Rate 81 Respiratory Rate 18 Blood Pressure 130/76 Pulse Oximetry 98 Intake/Output Intake/Output: Intake & Output 07/07/21 07/08/21 07/09/21 07/10/21 23:59 23:59 23:59 23:59 Intake Total 1000 3050 2000 Output Total 1600 1425 Balance 1000 1450 575 Meds/Results Medications: Active Medications Generic Name Dose Route Start Last Admin Trade Name Freq PRN Reason Stop Dose Admin Duloxetine HCl 60 mg 07/10/21 17:00 Duloxetine Hcl 60 Mg Capsule. PO BID JENY Hydromorphone HCl 0.5 mg 07/10/21 09:35 Hydromorphone Hcl Inj (*Crx) 1 Mg/Ml Syr IV PUSH
[2021-07-10 09:47] LABS: Lipase 106 U/L (23-300)
[2021-07-10] MEDS: LIPASE/AMYLASE/PROTEASE 12,000 UNITS CAP 6 CAP PO ×2 (11:21→16:21)
[2021-07-10] MEDS: DULoxetine HCL 60 MG CAPSULE.DR PO ×2 (11:21→16:22)
[2021-07-10 11:23] VITALS: O2SAT 96
[2021-07-10 11:50] LABS: Glucose Point of Care 140 mg/dl (65-105)
[2021-07-10] MEDS: HYDROmorphone HCL INJ (*CRX) 1 MG/ML SYR 0.5 MG IV PUSH (11:57)
[2021-07-10 14:00] VITALS: BP 142/87; PULSE 98; RESP 18; TEMP 36.3; O2SAT 100
--- NOTE | 2021-07-10 14:55 | PM.DS ---
DS: Admitting Diagnosis Discharge Date 07/11/2019 to Admitting Diagnosis Acute pancreatitis Nicotine dependence DS: Discharge Diagnosis Discharge Diagnosis (1) Abdominal pain: Qualifiers: Abdominal location: epigastric Qualified Code(s): R10.13 - Epigastric pain Code(s): R10.9 - Unspecified abdominal pain Status: Acute Assessment and Plan: 2/2 pancreatitis (2) Tobacco dependence: Code(s): F17.200 - Nicotine dependence, unspecified, uncomplicated Status: Acute Assessment and Plan: Smoking cessation counseling given for 3 minutes, will add nicotine patch daily (3) Acute on chronic pancreatitis: Code(s): K85.90 - Acute pancreatitis without necrosis or infection, unspecified; K86.1 - Other chronic pancreatitis Status: Acute Assessment and Plan: Provide aggressive IV fluid resuscitation IV pain management more DC. Abdominal pain resolved, changed to clear liquid diet and advance as tolerated. Repeat lipase, WNL. CT did not report pancreatitis findings. Provide antiemetics DS: Summary Hospital Course Reason for hospitalization: Acute pancreatitis Hospital Course: 41-year-old male with a past medical history of frequent pancreatitis, sphincter of OD eye, depression, and hypertension. He presented to [facility] Emergency Department for further evaluation of his right upper abdominal pain with associated nausea and vomiting. Patient was in the emergency department 2 days ago for similar pain and was discharged. Patient reports that the pain is resolved but then returned just prior to coming to the emergency department. He denies any fever, chills, chest pain or shortness of breath. Patient had requested for Zofran, Pepcid and Dilaudid in the emergency department. The ED physician obtain labs and imaging. WBC 12.9, hemoglobin 11.7, hematocrit 36.9, platelet 366, sodium 139, potassium 4.5, chloride 104, BUN 11, creatinine 0.9 normal LFTs and elevated lipase of 1579. UA was negative. CT of the abdomen and pelvis: Pneumobilia likely secondary to cholecystectomy, Minimal colonic diverticulosis; no CT evidence of diverticulitis, Normal appendix, Prostate enlargement and calcifications. . The patient's hospitalization he was treated for acute pancreatitis and provided IV fluids, IV pain management and remained NPO. Patient reports that his abdominal pain subsided and was able to tolerate clear liquid diet and advance as tolerated. no longer required IV pain medication. Lipase WNL, CT of the abdomen and pelvis did not reveal acute pancreatitis. Patient no longer has acute abdominal pain. Patient is being discharged home. All questions answered at the time of discharge. Status at Discharge Cognitive/behavioral status at discharge: Alert and oriented x4 Functional status at discharge: independent ambulation Overall status at discharge: patient is back to baseline Time Spent with Patient Time attestation: Total time spent providing and/or coordinating discharge services: Time spent: Less than 30 minutes Exam Narrative: General: No acute distress. Mental Status: Awake, alert and oriented to person, place, and time with clear speech. Skin: Skin in warm, dry and intact without rashes or lesions. Head: Normocephalic and atraumatic. Eyes: Conjunctivae are clear without exudates or hemorrhage. Sclera is non-icteric. EOM are intact, PERRLA. Ears: The external ear and canal are non-tender and without swelling or discharge. Nose: Nasal mucosa is pink and moist. Septum midline. Nares patent bilaterally. Throat: Oral mucosa pink and moist with good dentition. Tongue midline. Neck: The neck supple without adenopathy. Trachea midline. No JVD. Cardiac: S1 and S2 regular rate and rhythm. No murmurs, gallops, or rubs auscultated. Respiratory: Chest wall symmetric, nontender and without deformity or trauma. Respirations even and unlabored. Lung sounds are clear to auscultation
== END 2021-07-10 16:53 | disposition home or self-care (01) ==
LOC: ANHED 21:08 → ANH3MED 07-09 01:13
PROVIDERS: Admitting Provider Internal Medicine; Emergency Provider General Practice; PCP Family Medicine; Visit Provider Nurse Practitioner Family
DX: K85.90 Acute pancreatitis without necrosis or infection, unspecified (principal); K86.1 Other chronic pancreatitis; K21.9 Gastro-esophageal reflux disease without esophagitis; K52.3 Indeterminate colitis; R11.15 Cyclical vomiting syndrome unrelated to migraine; F17.210 Nicotine dependence, cigarettes, uncomplicated; F32.A Depression, unspecified; F41.9 Anxiety disorder, unspecified; Z87.442 Personal history of urinary calculi; Z90.49 Acquired absence of other specified parts of digestive tract
CPT/HCPCS: 36415; 74177; 80053; 81001; 82948; 83690; 83735; 85025; 93005; 96361; 96372; 96374; 96375; 96376; 99285; A9270; C9113; G0378; J0500; J1170; J1885; J2405; J7030; J7120; Q9967

== ENCOUNTER 2021-07-20 09:11 | Emergency (ER) | payer OTHER, SELFPAY ==
--- NOTE | ~2021-07-20 | CT_ITS ---
EXAMINATION: CT abdomen pelvis w con DATE: 07/20/2021 10:45 INDICATION: Epigastric abdominal pain. Vomiting. TECHNIQUE: Computed tomography (CT) of the abdomen and pelvis was performed with 100 mL Omnipaque 350 intravenous contrast. Automated exposure control and iterative reconstruction technique were employe d. The dose-length product was 300.63 mGy-cm. COMPARISON: CT abdomen and pelvis 07/08/2021 FINDINGS: The visualized portions of the lung bases are clear without pneumonia or pleural effusion. The heart size is normal. No pericardial effusion. The liver is normal. There are changes of cholecys tectomy. Pneumobilia is noted, likely secondary to sphincterotomy. The spleen, pancreas, adrenal glan ds, and kidneys are normal. There is a small right inguinal hernia containing fat. There are no dilat ed loops of bowel. The appendix is normal. There are no pathologically enlarged lymph nodes. There is no free intraperitoneal fluid. There is mild lumbar spondylosis. IMPRESSION: 1. Small right inguinal hernia containing fat. Reviewed, dictated and finalized at location A. [employer]
[2021-07-20 09:20] VITALS: BP 163/106; PULSE 89; RESP 20; TEMP 36.7; O2SAT 100
[2021-07-20 09:39] LABS: Basophils Absolute Auto 0.1 K/mm3 (0.0-0.1); Basophils Percent Auto 0.7 % (0.2-1.2); Eosinophils Absolute Auto 0.3 K/mm3 (0-0.3); Eosinophils Percent Auto 4.5 % (0-4.4); Hemoglobin 12.3 g/dL (14.0-18.0); Immature Granulocyte Absolute 0.02 K/mm3 (0.00-0.031); Immature Granulocyte Percent A 0.3 % (0-0.5); Lymphocytes Absolute Auto 2.07 K/mm3 (0.9-3.2); Lymphocytes Percent Auto 27.1 % (18.3-44.2); Mean Corpuscular HGB Conc 31.5 g/dl (32-36); Mean Corpuscular Hemoglobin 26.2 pg (26-34); Mean Corpuscular Volume 83.2 fl (80-100); Mean Platelet Volume 9.4 fl (7.4-10.4); Monocytes Absolute Auto 1.2 K/mm3 (0.1-0.6); Monocytes Percent Auto 16.1 % (2.6-8.5); Neutrophils Absolute Auto 3.9 K/mm3 (1.3-6.7); Neutrophils Percent Auto 51.3 % (45.5-73.1); Platelet Count Result 339 k/mm3 (150-375); Red Blood Count 4.69 M/mm3 (4.6-6.20); Red Cell Distribution Width 18.3 % (11.5-14.5); White Blood Count 7.6 K/mm3 (4.5-10.0)
--- NOTE | 2021-07-20 09:39 | ED.NAVMDI ---
HPI - Nausea/Vomiting/Diarrhea General Chief complaint: Nausea/Vomiting/Diarrhea Stated complaint: n/v Time Seen by Provider: 07/20/21 09:16 Source: patient Mode of arrival: ambulatory Limitations: no limitations History of Present Illness HPI Narrative: This is a 41-year-old male that presents to the emergency department for upper abdominal pain present since this morning. Associated with nausea and vomiting. Reports history of pancreatitis. Denies fever, diarrhea, or dysuria. Related Data Home Medications Medication Instructions Recorded Confirmed Creon 1 cap PO TID 03/28/20 07/09/21 Creon 2 cap PO TIDWM 01/22/21 07/09/21 duloxetine 60 mg PO BID 01/22/21 07/09/21 omeprazole 20 mg PO BID 01/23/21 07/09/21 Allergies Allergy/AdvReac Type Severity Reaction Status Date / Time doxycycline Allergy Unknown Gastrointestinal Verified 07/09/21 00:44 Upset metoclopramide Allergy Unknown Muscle Verified 07/09/21 00:44 Spasms sulfamethoxazole Allergy Unknown Gastrointestinal Verified 07/09/21 00:44 Upset trimethoprim Allergy Unknown Gastrointestinal Verified 07/09/21 00:44 Upset Sulfa (Sulfonamide AdvReac Gastrointestinal Verified 07/09/21 00:44 Antibiotics) Upset Review of Systems Review of Systems: CONSTITUTIONAL: Denies fever GASTROINTESTINAL: Reports abdominal pain, nausea, vomiting. Denies diarrhea. GENITOURINARY: Denies dysuria All systems reviewed & are unremarkable except as noted in HPI and below PMFSH Past Medical History Medical History Anxiety Chronic pancreatitis Colitis Cyclic vomiting syndrome Cyclical vomiting Depression Gastroenteritis GERD (gastroesophageal reflux disease) Hypertension IBD (inflammatory bowel disease) Kidney stones Pancreatitis Surgical History Surgical History Hx of cholecystectomy Family History Family History Grandparent Acute myocardial infarction Social History Social History Smoking packs per day: 1 Smoking cigarettes per day: 20.0 Years smoked: 20 Smoking pack-years: 20.00 Smoking status: Current every day smoker Tobacco type: cigarettes Alcohol intake: never Substance use: current Substance use type: marijuana Last use: PROBABLY ABOUT A WEEK AGOago Gender identity (if verbalized by the patient): Male Sexual Orientation (if Verbalized by the Patient): Straight or Heterosexual Spiritual care concerns: No Exam Narrative: GENERAL: Well-appearing, well-nourished, and in no acute distress. HEAD: Normocephalic, atraumatic. EYES: EOMI. CHEST: Clear to auscultation. No respiratory distress. No wheezes rales or rhonchi HEART: Regular rate and rhythm. No murmur heard. Normal peripheral pulses. ABDOMEN: Soft, nondistended, normal active bowel sounds. Tender to palpation in the epigastrium, without guarding EXTREMITIES: Normal range of motion. No edema. SKIN: Warm, dry, no rash. NEURO: No focal deficits. Alert and oriented x3. PSYCH: Normal mood and affect Course Vital Signs Vital signs: Vital Signs Temperature 98.1 F 07/20/21 09:20 Pulse Rate 89 07/20/21 09:20 Respiratory Rate 20 07/20/21 09:20 Blood Pressure 163/106 H 07/20/21 09:20 Pulse Oximetry 100 07/20/21 09:20 Temperature 98.1 F 07/20/21 09:20 Pulse Rate 70 07/20/21 12:07 Respiratory Rate 16 07/20/21 12:07 Blood Pressure 142/72 H 07/20/21 12:07 Pulse Oximetry 98 07/20/21 12:07 MDM - Nausea/Vomiting/Diarrhea MDM Narrative Medical decision making narrative: Patient presents to the emergency department for upper abdominal pain, nausea and vomiting. He is afebrile and nontoxic-appearing. CBC is without leukocytosis. Metabolic panel and lipase without concerning findings. UA without evidence of i
[2021-07-20 09:52] LABS: Alanine Aminotransferase 22 U/L (4-50); Albumin Level 4.5 g/dL (3.5-5.1); Alkaline Phosphatase 92 U/L (38-126); Anion Gap 8 mmol/L (8-16); Aspartate Amino Transferase 29 U/L (17-59); Bilirubin,Total 0.3 mg/dL (0.2-1.3); Blood Urea Nitrogen 14 mg/dL (9-20); Carbon Dioxide 28 mmol/L (22-30); Chloride 104 mmol/L (98-107); Estimated CRCL calculation 109 ml/min; Estimated Glomerular Filt Rate > 60; Glucose 101 mg/dL (65-110); Lipase 278 U/L (23-300); Potassium 4.6 mmol/L (3.4-5.0); Sodium 140 mmol/L (137-145)
[2021-07-20] MEDS: SODIUM CHLORIDE 0.9% IV 1,000 ML 999 ML IV CONT (10:01)
[2021-07-20] MEDS: FAMOTIDINE 20 MG/2 ML VIAL IV PUSH (10:03)
[2021-07-20] MEDS: ONDANSETRON INJ 4 MG/2 ML VIAL IV PUSH (10:03)
[2021-07-20] MEDS: HYDROmorphone HCL INJ (*CRX) 1 MG/ML SYR 0.5 MG IV PUSH ×2 (10:53→13:56)
[2021-07-20 11:01] LABS: Add Urine Microscopic? YES; Amorphous Sediment Urine Few; Appearance Urine Cloudy (Clear); Bacteria Urine Trace /hpf; Bilirubin Urine Negative (Negative); Blood Urine Negative (Negative); Color Urine Yellow (Yellow); Glucose Urine UA Negative (Negative); Ketones Urine Negative (Negative); Leukocyte Esterase Ur Negative LEU/UL (Negative); Nitrate Urine Negative (Negative); Protein Urine Negative (Negative); Specific Grav Ur 1.012 (1.001-1.035); Urobilinogen Urine Negative mg/dL (<2.0); WBC Urine 0-3 /hpf
[2021-07-20] MEDS: DICYCLOMINE HCL INJ 20 MG/2 ML VIAL IM (12:01)
[2021-07-20] MEDS: PROMETHAZINE HCL 25 MG/ML AMPUL 12.5 MG IV PUSH (12:01)
[2021-07-20 12:07] VITALS: BP 142/72; PULSE 70; RESP 16; O2SAT 98
[2021-07-20 14:05] VITALS: BP 148/68; PULSE 78; RESP 16; O2SAT 99
== END 2021-07-20 14:06 | disposition home or self-care (01) ==
PROVIDERS: Physician Assistant; Emergency Provider Emergency Medicine
DX: R10.13 Epigastric pain (principal); K21.9 Gastro-esophageal reflux disease without esophagitis; K86.1 Other chronic pancreatitis; I10 Essential (primary) hypertension; K58.9 Irritable bowel syndrome, unspecified; F17.210 Nicotine dependence, cigarettes, uncomplicated; K40.90 Unilateral inguinal hernia, without obstruction or gangrene, not specified as recurrent
CPT/HCPCS: 36415; 74177; 80053; 81001; 83690; 85025; 96365; 96372; 96375; 96376; 99284; J0131; J0500; J1170; J2405; J2550; J7030; Q9967

== ENCOUNTER 2021-07-21 21:38 | Emergency (ER) | payer OTHER, SELFPAY ==
--- NOTE | ~2021-07-21 | CT_ITS ---
EXAMINATION: CT abdomen pelvis w con DATE: 07/21/2021 23:21 INDICATION: Abdominal pain, nausea and vomiting TECHNIQUE: Computed tomography (CT) of the abdomen and pelvis was performed with 100 mL Omnipaque-350 intravenous contrast. Automated exposure control and iterative reconstruction technique were employe d. The dose-length product was 312.48 mGy-cm. COMPARISON: None FINDINGS: Lung bases are clear. Heart size is normal. No pericardial or pleural effusion. Cholecystectomy clips the gallbladder fossa. Liver, spleen, pancreas, bilateral adrenal glands and kidneys are normal. Mongo els including the appendix are normal. Bladder is normal. No free intraperitoneal gas or fluid. No pa thologically enlarged abdominal or pelvic lymphadenopathy. Small fat-containing right inguinal hernia . Mild osteoarthritis at the bilateral hip and sacroiliac joints. IMPRESSION: 1. No acute intra-abdominal/pelvic process. 2. Small fat-containing right inguinal hernia. Reviewed, dictated and finalized at location A.
[2021-07-21 21:46] VITALS: BP 157/110; PULSE 92; RESP 20; TEMP 36.2; O2SAT 96
--- NOTE | 2021-07-21 22:05 | ED.GENADULT ---
HPI - General Adult General Chief complaint: Abdominal Pain Stated complaint: abd pain Time Seen by Provider: 07/21/21 21:52 History of Present Illness HPI narrative: Patient is a 41-year-old gentleman who presents the emergency department with chief complaint of abdominal pain. Patient reports that he has history of pancreatitis and is followed by supervisor facepiece line and is on Elavil. Patient states that he does states that in the epigastric region reports it feels similar to tightness have passed. Patient reports nausea and vomiting reports the pain is not improved by anything Related Data Home Medications Medication Instructions Recorded Confirmed Creon 1 cap PO TID 03/28/20 07/09/21 Creon 2 cap PO TIDWM 01/22/21 07/09/21 duloxetine 60 mg PO BID 01/22/21 07/09/21 omeprazole 20 mg PO BID 01/23/21 07/09/21 Allergies Allergy/AdvReac Type Severity Reaction Status Date / Time doxycycline Allergy Unknown Gastrointestinal Verified 07/21/21 21:55 Upset metoclopramide Allergy Unknown Muscle Verified 07/21/21 21:55 Spasms sulfamethoxazole Allergy Unknown Gastrointestinal Verified 07/21/21 21:55 Upset trimethoprim Allergy Unknown Gastrointestinal Verified 07/21/21 21:55 Upset Sulfa (Sulfonamide AdvReac Gastrointestinal Verified 07/21/21 21:55 Antibiotics) Upset Review of Systems Review of Systems: A 10 system review of systems was completed on the patient and is negative except for what is stated in the HPI. Nursing and ancillary documentation was reviewed. PMFSH Past Medical History Medical History Anxiety Chronic pancreatitis Colitis Cyclic vomiting syndrome Cyclical vomiting Depression Gastroenteritis GERD (gastroesophageal reflux disease) Hypertension IBD (inflammatory bowel disease) Kidney stones Pancreatitis Surgical History Surgical History Hx of cholecystectomy Family History Family History Grandparent Acute myocardial infarction Social History Social History Smoking packs per day: 1 Smoking cigarettes per day: 20.0 Years smoked: 20 Smoking pack-years: 20.00 Smoking status: Current every day smoker Tobacco type: cigarettes Alcohol intake: never Substance use: current Substance use type: marijuana Last use: PROBABLY ABOUT A WEEK AGOago Gender identity (if verbalized by the patient): Male Sexual Orientation (if Verbalized by the Patient): Straight or Heterosexual Spiritual care concerns: No Exam Narrative: GENERAL: Well-appearing, well-nourished, and in no acute distress. HEAD: Normocephalic, atraumatic. EYES: PERRLA and EOMI. ENT: Nares clear, no rhinorrhea or epistaxis. Mucous membranes moist. NECK: Supple. CHEST: Clear to auscultation. No respiratory distress. HEART: Regular rate and rhythm. No murmur heard. Normal peripheral pulses. ABDOMEN: Soft, tenderness to palpation in the epigastric region, nondistended, normal active bowel sounds. EXTREMITIES: Normal range of motion. No edema. SKIN: Warm, dry, no rash. NEURO: No focal deficits. Alert and oriented x3. PSYCH: Normal mood and affect. Course Course Emergency Course: Patient CT scan shows no evidence of acute abnormality. Patient will receive 1 additional dose of IV pain medications the patient is instructed with his supervisor facepiece line Vital Signs Vital signs: Vital Signs Temperature 36.2 C L 07/21/21 21:46 Pulse Rate 92 07/21/21 21:46 Respiratory Rate 20 07/21/21 21:46 Blood Pressure 157/110 H 07/21/21 21:46 Pulse Oximetry 96 07/21/21 21:46 Temperature 36.2 C L 07/21/21 21:46 Pulse Rate 79 07/21/21 23:45 Respiratory Rate 16 07/21/21 23:45 Blood Pressure 157/110 H 07/21/21 21:46 Pulse Oximetry 98 0
[2021-07-21 22:10] LABS: Basophils Absolute Auto 0.1 K/mm3 (0.0-0.1); Basophils Percent Auto 0.7 % (0.2-1.2); Eosinophils Absolute Auto 0.1 K/mm3 (0-0.3); Eosinophils Percent Auto 1.2 % (0-4.4); Hematocrit 38.9 % (42.0-52.0); Hemoglobin 12.4 g/dL (14.0-18.0); Immature Granulocyte Absolute 0.04 K/mm3 (0.00-0.031); Immature Granulocyte Percent A 0.4 % (0-0.5); Lymphocytes Absolute Auto 3.47 K/mm3 (0.9-3.2); Lymphocytes Percent Auto 33.8 % (18.3-44.2); Mean Corpuscular HGB Conc 31.9 g/dl (32-36); Mean Corpuscular Hemoglobin 26.1 pg (26-34); Mean Corpuscular Volume 81.9 fl (80-100); Mean Platelet Volume 9.5 fl (7.4-10.4); Monocytes Absolute Auto 1.1 K/mm3 (0.1-0.6); Monocytes Percent Auto 10.9 % (2.6-8.5); Neutrophils Absolute Auto 5.5 K/mm3 (1.3-6.7); Platelet Count Result 349 k/mm3 (150-375); Red Blood Count 4.75 M/mm3 (4.6-6.20); Red Cell Distribution Width 18.2 % (11.5-14.5); White Blood Count 10.3 K/mm3 (4.5-10.0)
[2021-07-21] MEDS: PANTOPRAZOLE SODIUM IV 40 MG VIAL IV PUSH (22:13)
[2021-07-21] MEDS: SODIUM CHLORIDE 0.9% IV 1,000 ML 999 ML IV CONT (22:13)
[2021-07-21] MEDS: FAMOTIDINE 20 MG/2 ML VIAL IV PUSH (22:14)
[2021-07-21] MEDS: MORPHINE SULFATE (*CRX) 4 MG/ML INJ IV PUSH (22:14)
[2021-07-21] MEDS: ONDANSETRON INJ 4 MG/2 ML VIAL IV PUSH (22:14)
[2021-07-21 22:24] LABS: Alanine Aminotransferase 22 U/L (4-50); Albumin Level 4.7 g/dL (3.5-5.1); Alkaline Phosphatase 107 U/L (38-126); Anion Gap 9 mmol/L (8-16); Aspartate Amino Transferase 34 U/L (17-59); Bilirubin,Total 0.4 mg/dL (0.2-1.3); Blood Urea Nitrogen 13 mg/dL (9-20); Calcium 9.5 mg/dL (8.4-10.2); Carbon Dioxide 28 mmol/L (22-30); Chloride 105 mmol/L (98-107); Estimated CRCL calculation 95 ml/min; Estimated Glomerular Filt Rate > 60; Glucose 123 mg/dL (65-110); Lipase 193 U/L (23-300); Potassium 3.8 mmol/L (3.4-5.0); Sodium 142 mmol/L (137-145)
[2021-07-21 22:33] LABS: Add Urine Microscopic? YES; Appearance Urine Cloudy (Clear); Bilirubin Urine Negative (Negative); Blood Urine Negative (Negative); Budding Yeast Urine Present /hpf; Color Urine Yellow (Yellow); Glucose Urine UA Negative (Negative); Ketones Urine Negative (Negative); Leukocyte Esterase Ur Negative LEU/UL (Negative); Mucus Urine Rare /lpf; Nitrate Urine Negative (Negative); Protein Urine Negative (Negative); RBC Urine 0-2 /hpf (0-2); Specific Grav Ur 1.015 (1.001-1.035); Squamous Epithelial Cell Urine Rare /hpf (Few); Urobilinogen Urine Negative mg/dL (<2.0); WBC Urine 0-3 /hpf
--- NOTE | 2021-07-21 22:52 | PC.NURSE ---
Pt requesting more pain medication. Rates pain 8/10. EDP notified.
[2021-07-21 23:45] VITALS: PULSE 79; RESP 16; O2SAT 98
[2021-07-22] MEDS: KETOROLAC 30 MG/ML VIAL (*BKC) IV PUSH (00:18)
[2021-07-22 00:32] VITALS: BP 126/78; PULSE 89; RESP 16; O2SAT 100
== END 2021-07-22 00:34 | disposition home or self-care (01) ==
PROVIDERS: Emergency Provider Emergency Medicine
DX: R10.84 Generalized abdominal pain (principal); K86.1 Other chronic pancreatitis; K21.9 Gastro-esophageal reflux disease without esophagitis; I10 Essential (primary) hypertension; K58.9 Irritable bowel syndrome, unspecified; Z87.442 Personal history of urinary calculi; F17.210 Nicotine dependence, cigarettes, uncomplicated
CPT/HCPCS: 36415; 74177; 80053; 81001; 83690; 85025; 96361; 96374; 96375; 99284; C9113; J1885; J2270; J2405; J7030; Q9967

== ENCOUNTER 2021-09-17 03:44 | Emergency (ER) | payer OTHER, SELFPAY ==
[2021-09-17 04:06] VITALS: BP 176/115; PULSE 95; RESP 20; TEMP 36.5; O2SAT 100
[2021-09-17 04:30] LABS: Basophils Absolute Auto 0.1 K/mm3 (0.0-0.1); Basophils Percent Auto 0.3 % (0.2-1.2); Eosinophils Absolute Auto 0.1 K/mm3 (0-0.3); Eosinophils Percent Auto 0.8 % (0-4.4); Hematocrit 36.5 % (42.0-52.0); Hemoglobin 11.3 g/dL (14.0-18.0); Immature Granulocyte Absolute 0.08 K/mm3 (0.00-0.031); Immature Granulocyte Percent A 0.5 % (0-0.5); Lymphocytes Absolute Auto 1.91 K/mm3 (0.9-3.2); Lymphocytes Percent Auto 12.4 % (18.3-44.2); Mean Corpuscular Hemoglobin 25.3 pg (26-34); Mean Corpuscular Volume 81.8 fl (80-100); Mean Platelet Volume 9.7 fl (7.4-10.4); Monocytes Absolute Auto 1.4 K/mm3 (0.1-0.6); Monocytes Percent Auto 9.3 % (2.6-8.5); Neutrophils Absolute Auto 11.8 K/mm3 (1.3-6.7); Neutrophils Percent Auto 76.7 % (45.5-73.1); Platelet Count Result 381 k/mm3 (150-375); Red Blood Count 4.46 M/mm3 (4.6-6.20); Red Cell Distribution Width 17.3 % (11.5-14.5); White Blood Count 15.4 K/mm3 (4.5-10.0)
[2021-09-17 04:31] LABS: Appearance Urine Clear (Clear); Bilirubin Urine Negative (Negative); Blood Urine Negative (Negative); Color Urine Yellow (Yellow); Glucose Urine UA Negative (Negative); Ketones Urine Trace mg/dL (Negative); Leukocyte Esterase Ur Negative LEU/UL (Negative); Nitrate Urine Negative (Negative); Protein Urine Negative (Negative); Urobilinogen Urine 0.2 mg/dL (<2.0)
[2021-09-17 04:38] LABS: Mucus Urine Rare /lpf; RBC Urine 0-2 /hpf (0-2); WBC Urine 0-3 /hpf
[2021-09-17 04:41] LABS: Alanine Aminotransferase 17 U/L (6-50); Albumin Level 4.6 g/dL (3.5-5.1); Alkaline Phosphatase 85 U/L (38-126); Anion Gap 11 mmol/L (8-16); Aspartate Amino Transferase 27 U/L (17-59); Bilirubin,Total 0.4 mg/dL (0.2-1.3); Blood Urea Nitrogen 10 mg/dL (9-20); Calcium 9.1 mg/dL (8.4-10.2); Carbon Dioxide 25 mmol/L (22-30); Chloride 104 mmol/L (98-107); Estimated CRCL calculation 99 ml/min; Estimated Glomerular Filt Rate > 60; Glucose 114 mg/dL (65-110); Lipase 120 U/L (23-300); Potassium 3.7 mmol/L (3.4-5.0); Sodium 140 mmol/L (137-145)
[2021-09-17 04:42] LABS: Add Urine Microscopic? YES
[2021-09-17] MEDS: HYDROmorphone HCL INJ (*CRX) 1 MG/ML SYR IV PUSH ×2 (05:43→06:27)
[2021-09-17] MEDS: PANTOPRAZOLE SODIUM IV 40 MG VIAL IV PUSH (05:45)
--- NOTE | 2021-09-17 05:53 | ED.GENADULT ---
HPI - General Adult General Chief complaint: Nausea/Vomiting/Diarrhea Stated complaint: Nausea/vomiting Time Seen by Provider: 09/17/21 05:09 Source: patient Mode of arrival: ambulatory Limitations: no limitations History of Present Illness HPI narrative: 41-year-old male presented to the emergency department for evaluation of recurrent pancreatitis. Patient states he has had multiple issues with pancreatitis and he states his physicians attribute this to a dysfunction of his sphincter of Oddi. Patient states that his current pain and nausea started last night at 9 PM. Patient denies any bloody emesis. Patient denies any fevers or chills. Patient states this pain is typical for his pancreatitis pain. Related Data Home Medications Medication Instructions Recorded Confirmed Creon 1 cap PO TID 03/28/20 07/09/21 Creon 2 cap PO TIDWM 01/22/21 07/09/21 duloxetine 60 mg PO BID 01/22/21 07/09/21 Allergies Allergy/AdvReac Type Severity Reaction Status Date / Time doxycycline Allergy Unknown Gastrointestinal Verified 09/17/21 05:11 Upset metoclopramide Allergy Unknown Muscle Verified 09/17/21 05:11 Spasms sulfamethoxazole Allergy Unknown Gastrointestinal Verified 09/17/21 05:11 Upset trimethoprim Allergy Unknown Gastrointestinal Verified 09/17/21 05:11 Upset Sulfa (Sulfonamide AdvReac Gastrointestinal Verified 09/17/21 05:11 Antibiotics) Upset Review of Systems Review of Systems: CONSTITUTIONAL: Denies fever, chills, or sweats. EYES: Denies visual changes, redness, or discharge. ENT: Denies rhinorrhea, congestion, sore throat, or otalgia. CARDIOVASCULAR: Denies chest pain, palpitations, or edema. RESPIRATORY: Denies cough or dyspnea. GASTROINTESTINAL: Epigastric abdominal pain with associated nausea and vomiting GENITOURINARY: Denies dysuria or hematuria. SKIN: Denies rash or itching. MUSCULOSKELETAL: Denies back pain, joint pain, or myalgia. NEUROLOGIC: Denies headache, numbness, or weakness. [facility] Past Medical History Medical History Anxiety Chronic pancreatitis Colitis Cyclic vomiting syndrome Cyclical vomiting Depression Gastroenteritis GERD (gastroesophageal reflux disease) Hypertension IBD (inflammatory bowel disease) Kidney stones Pancreatitis Surgical History Surgical History Hx of cholecystectomy Family History Family History Grandparent Acute myocardial infarction Social History Social History Smoking packs per day: 1 Smoking cigarettes per day: 20.0 Years smoked: 20 Smoking pack-years: 20.00 Smoking status: Current every day smoker Tobacco type: cigarettes Alcohol intake: never Substance use: current Substance use type: marijuana Last use: PROBABLY ABOUT A WEEK AGOago Gender identity (if verbalized by the patient): Male Sexual Orientation (if Verbalized by the Patient): Straight or Heterosexual Spiritual care concerns: No Exam Narrative: APPEARANCE: Well appearing, no pain, no distress, well-nourished. HEAD: normocephalic, atraumatic. EYES: PERRLA/EOMI, conjunctivae clear. NOSE: Normal no drainage NECK: Supple. No adenopathy, no masses. RESPIRATORY: Airway patent, respirations nonlabored. Clear to auscultation bilaterally, no rales, rhonchi, wheezing. CARDIOVASCULAR: Regular rate and rhythm without murmurs rubs or gallops. ABDOMINAL: Epigastric tenderness to palpation. Normal bowel sounds. Benign nonsurgical MUSCULOSKELETAL: Moves all extremities. Strength/ROM intact, No edema, No calf tenderness. NEURO: Alert. Cranial nerves II through XII intact. Grossly intact SKIN: Warm, dry. Normal Color Course Course Emergency Course: Patient did feel improved with treatment. Patient was updated on the
[2021-09-17] MEDS: ONDANSETRON INJ 4 MG/2 ML VIAL IV PUSH (06:28)
[2021-09-17 06:38] VITALS: BP 137/86; PULSE 95; RESP 17; O2SAT 97
== END 2021-09-17 06:33 | disposition home or self-care (01) ==
PROVIDERS: Emergency Provider Emergency Medicine
DX: K85.90 Acute pancreatitis without necrosis or infection, unspecified (principal); K86.1 Other chronic pancreatitis; I10 Essential (primary) hypertension; K21.9 Gastro-esophageal reflux disease without esophagitis; K58.9 Irritable bowel syndrome, unspecified; Z87.442 Personal history of urinary calculi; F17.210 Nicotine dependence, cigarettes, uncomplicated
CPT/HCPCS: 36415; 80053; 81001; 83690; 85025; 96374; 96375; 96376; 99284; C9113; J1170; J2405

== ENCOUNTER 2021-09-21 02:43 | Emergency (ER) | payer OTHER, SELFPAY ==
[2021-09-21] VITALS (17 sets, daily range): BP systolic 109–164; BP diastolic 75–104; PULSE 71–100; RESP 10–22; TEMP 36.6; O2SAT 97–100
[2021-09-21 03:41] LABS: Basophils Absolute Auto 0.1 K/mm3 (0.0-0.1); Basophils Percent Auto 0.3 % (0.2-1.2); Eosinophils Absolute Auto 0.1 K/mm3 (0-0.3); Eosinophils Percent Auto 0.3 % (0-4.4); Hematocrit 37.2 % (42.0-52.0); Hemoglobin 11.7 g/dL (14.0-18.0); Immature Granulocyte Absolute 0.11 K/mm3 (0.00-0.031); Immature Granulocyte Percent A 0.5 % (0-0.5); Lymphocytes Absolute Auto 1.72 K/mm3 (0.9-3.2); Lymphocytes Percent Auto 8.2 % (18.3-44.2); Mean Corpuscular HGB Conc 31.5 g/dl (32-36); Mean Corpuscular Hemoglobin 25.5 pg (26-34); Mean Platelet Volume 9.3 fl (7.4-10.4); Monocytes Absolute Auto 1.8 K/mm3 (0.1-0.6); Monocytes Percent Auto 8.7 % (2.6-8.5); Neutrophils Absolute Auto 17.2 K/mm3 (1.3-6.7); Platelet Count Result 407 k/mm3 (150-375); Red Blood Count 4.59 M/mm3 (4.6-6.20); Red Cell Distribution Width 17.2 % (11.5-14.5); White Blood Count 20.9 K/mm3 (4.5-10.0)
[2021-09-21 03:48] LABS: Alanine Aminotransferase 16 U/L (6-50); Albumin Level 4.4 g/dL (3.5-5.1); Alkaline Phosphatase 87 U/L (38-126); Anion Gap 10 mmol/L (8-16); Aspartate Amino Transferase 23 U/L (17-59); Bilirubin,Total 0.2 mg/dL (0.2-1.3); Blood Urea Nitrogen 9 mg/dL (9-20); Carbon Dioxide 25 mmol/L (22-30); Chloride 103 mmol/L (98-107); Estimated CRCL calculation 98 ml/min; Estimated Glomerular Filt Rate > 60; Glucose 125 mg/dL (65-110); Lipase 111 U/L (23-300); Potassium 3.6 mmol/L (3.4-5.0); Sodium 138 mmol/L (137-145)
[2021-09-21] MEDS: ONDANSETRON HCL ODT 4 MG TABLET PO (05:46)
[2021-09-21] MEDS: FAMOTIDINE 20 MG TABLET PO (05:46)
[2021-09-21 06:35] LABS: Add Urine Microscopic? NO; Appearance Urine Clear (Clear); Bilirubin Urine Negative (Negative); Blood Urine Negative (Negative); Color Urine Yellow (Yellow); Glucose Urine UA Negative (Negative); Ketones Urine Negative (Negative); Leukocyte Esterase Ur Negative LEU/UL (Negative); Nitrate Urine Negative (Negative); Protein Urine Negative (Negative); Specific Grav Ur 1.025 (1.001-1.035); Urobilinogen Urine 0.2 mg/dL (<2.0)
--- NOTE | 2021-09-21 06:36 | ED.ABDPAIN ---
HPI - Abdominal Pain General Chief Complaint: Abdominal Pain Stated Complaint: abd pain/vomitting/hx pancreatitis Time Seen by Provider: 09/21/21 04:00 History of Present Illness HPI narrative: 41-year-old male with history of chronic abdominal pain, pancreatitis, cyclic vomiting syndrome presents here with his usual symptoms of abdominal pain, today he is also having some diarrhea. Related Data Home Medications Medication Instructions Recorded Confirmed Creon 1 cap PO TID 03/28/20 07/09/21 Creon 2 cap PO TIDWM 01/22/21 07/09/21 duloxetine 60 mg PO BID 01/22/21 07/09/21 Allergies Allergy/AdvReac Type Severity Reaction Status Date / Time doxycycline Allergy Unknown Gastrointestinal Verified 09/17/21 05:11 Upset metoclopramide Allergy Unknown Muscle Verified 09/17/21 05:11 Spasms sulfamethoxazole Allergy Unknown Gastrointestinal Verified 09/17/21 05:11 Upset trimethoprim Allergy Unknown Gastrointestinal Verified 09/17/21 05:11 Upset Sulfa (Sulfonamide AdvReac Gastrointestinal Verified 09/17/21 05:11 Antibiotics) Upset Review of Systems Review of Systems: CONST: No fever. HEENT: No sore throat C/V: No chest pain RESP: No cough GI: Reports abdominal pain, nausea, vomiting[, diarrhea] : No dysuria. M/S: No joint pain. SKIN: No rash. NEURO: [No headache or focal numbness or weakness] PSYCH: [No depression] PMFSH Past Medical History Medical History Anxiety Chronic pancreatitis Colitis Cyclic vomiting syndrome Cyclical vomiting Depression Gastroenteritis GERD (gastroesophageal reflux disease) Hypertension IBD (inflammatory bowel disease) Kidney stones Pancreatitis Surgical History Surgical History Hx of cholecystectomy Family History Family History Grandparent Acute myocardial infarction Social History Social History Smoking packs per day: 1 Smoking cigarettes per day: 20.0 Years smoked: 20 Smoking pack-years: 20.00 Smoking status: Current every day smoker Tobacco type: cigarettes Alcohol intake: never Substance use: current Substance use type: marijuana Last use: PROBABLY ABOUT A WEEK AGOago Gender identity (if verbalized by the patient): Male Sexual Orientation (if Verbalized by the Patient): Straight or Heterosexual Spiritual care concerns: No Exam Narrative: EXAMINATION OF ORGAN SYSTEMS/BODY AREAS: Constitutional: Vital signs per nursing GENERAL:[No acute distress, non-toxic appearing, resting comfortably.] HEAD: Normal with no signs of head trauma. EYES: EOMI, conjunctiva normal ENT: Hearing grossly intact LUNGS: Nonlabored breathing. HEART: [Regular rate and rhythm] ABD: [Soft], [nontender to palpation] EXT: Normal range of motion SKIN: [No rashes or lesions.] NEURO: [Alert and oriented x 3. No gross focal sensory or strength deficits.] PSYCH: Normal affect Course Course Emergency Course: 41-year-old male presenting here with abdominal pain, vital signs stable here, exam shows soft nontender abdomen, well-appearing patient, differential includes his usual acute on chronic abdominal pain, pancreatitis, gastroenteritis, labs obtained here notable only for elevated WBC which is not far from his baseline, normal lipase, he is given Zofran and famotidine here and since since he has been here has not had any episodes of vomiting. At this time he is demanding Dilaudid, he states that if he is given Dilaudid he will go home. I did explain again that I would not give him narcotics for his chronic pain but would start with other medications first. His abdominal exam remains the same, soft and nontender, I have low concern for any acute intra-abdominal etiology at this time and I feel he stable for discharge home with follow-up with gastroenter
== END 2021-09-21 06:40 | disposition home or self-care (01) ==
LOC: ANHED 04:07
PROVIDERS: Emergency Provider Emergency Medicine
DX: R10.84 Generalized abdominal pain (principal); G89.29 Other chronic pain; R11.15 Cyclical vomiting syndrome unrelated to migraine; K86.1 Other chronic pancreatitis; I10 Essential (primary) hypertension; K21.9 Gastro-esophageal reflux disease without esophagitis; K58.9 Irritable bowel syndrome, unspecified; Z87.442 Personal history of urinary calculi
CPT/HCPCS: 36415; 80053; 81003; 83690; 85025; 96372; 99283; A9270

== ENCOUNTER 2021-11-01 17:41 | Emergency (ER) | payer OTHER, SELFPAY ==
[2021-11-01 17:46] VITALS: BP 166/98; PULSE 96; RESP 18; O2SAT 99
[2021-11-01 17:59] LABS: Basophils Absolute Auto 0.1 K/mm3 (0.0-0.1); Basophils Percent Auto 0.8 % (0.2-1.2); Eosinophils Absolute Auto 0.3 K/mm3 (0-0.3); Eosinophils Percent Auto 2.6 % (0-4.4); Hematocrit 37.8 % (42.0-52.0); Hemoglobin 11.7 g/dL (14.0-18.0); Immature Granulocyte Absolute 0.04 K/mm3 (0.00-0.031); Immature Granulocyte Percent A 0.4 % (0-0.5); Lymphocytes Absolute Auto 2.91 K/mm3 (0.9-3.2); Lymphocytes Percent Auto 27.6 % (18.3-44.2); Mean Corpuscular Hemoglobin 24.6 pg (26-34); Mean Corpuscular Volume 79.4 fl (80-100); Mean Platelet Volume 9.1 fl (7.4-10.4); Monocytes Absolute Auto 1.6 K/mm3 (0.1-0.6); Monocytes Percent Auto 15.3 % (2.6-8.5); Neutrophils Absolute Auto 5.6 K/mm3 (1.3-6.7); Neutrophils Percent Auto 53.3 % (45.5-73.1); Platelet Count Result 363 k/mm3 (150-375); Red Blood Count 4.76 M/mm3 (4.6-6.20); Red Cell Distribution Width 17.9 % (11.5-14.5); White Blood Count 10.5 K/mm3 (4.5-10.0)
[2021-11-01 18:08] LABS: Alanine Aminotransferase 28 U/L (6-50); Albumin Level 4.5 g/dL (3.5-5.1); Alkaline Phosphatase 81 U/L (38-126); Anion Gap 9 mmol/L (8-16); Aspartate Amino Transferase 31 U/L (17-59); Bilirubin,Total 0.1 mg/dL (0.2-1.3); Blood Urea Nitrogen 9 mg/dL (9-20); Calcium 9.5 mg/dL (8.4-10.2); Carbon Dioxide 29 mmol/L (22-30); Chloride 105 mmol/L (98-107); Estimated CRCL calculation 90 ml/min; Estimated Glomerular Filt Rate > 60; Glucose 138 mg/dL (65-110); Potassium 3.7 mmol/L (3.4-5.0); Sodium 143 mmol/L (137-145)
[2021-11-01 18:44] LABS: Lipase 203 U/L (23-300)
[2021-11-01] MEDS: ONDANSETRON INJ 4 MG/2 ML VIAL IV PUSH (18:45)
[2021-11-01] MEDS: SODIUM CHLORIDE 0.9% IV 1,000 ML 999 ML IV CONT (18:45)
--- NOTE | 2021-11-01 18:57 | ED.ABDPAIN ---
HPI - Abdominal Pain General Chief Complaint: Abdominal Pain <Vin Mustafa MD - Last Filed: 11/01/21 19:03> Stated Complaint: abdominal pain with nausea and vomiting <Vin Mustafa MD - Last Filed: 11/01/21 19:03> Time Seen by Provider: 11/01/21 18:11 <Vin Mustafa MD - Last Filed: 11/01/21 19:03> Source: patient <Vin Mustafa MD - Last Filed: 11/01/21 19:03> Mode of arrival: ambulatory <Vin Mustafa MD - Last Filed: 11/01/21 19:03> Limitations: no limitations <Vin Mustafa MD - Last Filed: 11/01/21 19:03> History of Present Illness HPI narrative: 41-year-old with a history of recurrent abdominal pain here with complaints of lower abdominal pain since last 1 day. He states he is nauseated. Patient states that IV Dilaudid helped his pain. He also states he has recurrent pancreatitis. No history of fever or chills <Vin Mustafa MD - Last Filed: 11/01/21 19:03> MD elicited complaint: abdominal pain <Vin Mustafa MD - Last Filed: 11/01/21 19:03> Pertinent past history: none <Vin Mustafa MD - Last Filed: 11/01/21 19:03> Onset (ago): day(s) (1) <Vin Mustafa MD - Last Filed: 11/01/21 19:03> Pain Consistency: constant <Vin Mustafa MD - Last Filed: 11/01/21 19:03> Location: RLQ and LLQ <Vin Mustafa MD - Last Filed: 11/01/21 19:03> Severity: severe <Vin Mustafa MD - Last Filed: 11/01/21 19:03> Quality: aching <Vin Mustafa MD - Last Filed: 11/01/21 19:03> Radiation: none <Vin Mustafa MD - Last Filed: 11/01/21 19:03> Migration to: no migration <Vin Mustafa MD - Last Filed: 11/01/21 19:03> Exacerbating factors: nothing <Vin Mustafa MD - Last Filed: 11/01/21 19:03> Related Data Home Medications: Home Medications Medication Instructions Recorded Confirmed [id number] 1 cap PO TID 03/28/20 07/09/21 36,000-114,000-180,000 unit capsule,delay rel (Creon) duloxetine 60 mg capsule,delayed 60 mg PO BID 01/22/21 07/09/21 release [id number] 2 cap PO TIDWM 01/22/21 07/09/21 36,000-114,000-180,000 unit capsule,delay rel (Creon) <Vin Mustafa MD - Last Filed: 11/01/21 19:03> Allergies/Adverse Reactions: Allergies Allergy/AdvReac Type Severity Reaction Status Date / Time doxycycline Allergy Unknown Gastrointestinal Verified 09/17/21 05:11 Upset metoclopramide Allergy Unknown Muscle Verified 09/17/21 05:11 Spasms sulfamethoxazole Allergy Unknown Gastrointestinal Verified 09/17/21 05:11 Upset trimethoprim Allergy Unknown Gastrointestinal Verified 09/17/21 05:11 Upset Sulfa (Sulfonamide AdvReac Gastrointestinal Verified 09/17/21 05:11 Antibiotics) Upset <Vin Mustafa MD - Last Filed: 11/01/21 19:03> Review of Systems Review of Systems: All systems reviewed & are unremarkable except as noted in HPI and below <Vin Mustafa MD - Last Filed: 11/01/21 19:03> Constitutional: Constitutional: Reports no additional constitutional complaints <Vin Mustafa MD - Last Filed: 11/01/21 19:03> Eyes: Eyes: Reports no additional eye complaints <Vin Mustafa MD - Last Filed: 11/01/21 19:03> ENT: Reports system reviewed and no additional complaints, except as documented <Vin Mustafa MD - Last Filed: 11/01/21 19:03> Cardiovascular: Cardiovascular: Reports no additional cardiovascular complaints <Vin Mustafa MD - Last Filed: 11/01/21 19:03> Respiratory: Respiratory: Reports as per HPI <Vin Mustafa MD - Last Filed: 11/01/21 19:03> Gastrointestinal: Gastrointestinal: Reports as per HPI <Vin Mustafa MD - Last Filed: 11/01/21 19:03> Musculoskeletal: Musculoskeletal: Reports no additional musculoskeletal complaints <Vin Mustafa MD - Last Filed: 11/01/21 19:03> Integumentary/Breasts: Skin/Breast: Reports system reviewed and no additional complaints, except as docu <R
--- NOTE | 2021-11-01 19:28 | PC.NURSE ---
Report received from JOHN Leiva.This nurse assumed care of patient at this time.
[2021-11-01] MEDS: FAMOTIDINE 20 MG/2 ML VIAL 40 MG IV PUSH (19:44)
[2021-11-01] MEDS: HYDROmorphone HCL INJ (*CRX) 1 MG/ML SYR IV PUSH (19:45)
== END 2021-11-01 20:06 | disposition home or self-care (01) ==
PROVIDERS: Emergency Medicine; Family Medicine; Emergency Provider Emergency Medicine
DX: R10.30 Lower abdominal pain, unspecified (principal); R11.15 Cyclical vomiting syndrome unrelated to migraine; I10 Essential (primary) hypertension; K86.1 Other chronic pancreatitis; K58.9 Irritable bowel syndrome, unspecified; K21.9 Gastro-esophageal reflux disease without esophagitis; F17.210 Nicotine dependence, cigarettes, uncomplicated
CPT/HCPCS: 36415; 80053; 83690; 85025; 96361; 96374; 96375; 99284; J0131; J1170; J2405; J7030

== ENCOUNTER 2021-11-07 18:21 | Emergency (ER) | payer OTHER, SELFPAY ==
--- NOTE | ~2021-11-07 | CT_ITS ---
EXAMINATION: CT abdomen pelvis w con INDICATION: Epigastric pain, history of pancreatitis TECHNIQUE: Computed tomographic images of the abdomen and pelvis were obtained after the administrati on of 100 cc of Omnipaque 300 intravenous contrast. The dose-length product (DLP) was 421.69 mGy-cm. Automated exposure control and iterative reconstruction technique were employed. COMPARISON: 07/21/2021 FINDINGS: Minimal dependent atelectasis is present in the lung bases. The heart size is normal. The g allbladder is surgically absent. The liver, spleen, pancreas, and adrenal glands are normal. The kidn eys are unremarkable. No pathologically enlarged abdominal or pelvic lymph nodes are identified. Ther e is no free intraperitoneal gas or evidence of bowel obstruction. The appendix is normal. There is a tiny umbilical hernia containing fat. IMPRESSION: 1. No CT correlate for the patient's symptoms. Reviewed, dictated and finalized at location F.
[2021-11-07 18:21] VITALS: BP 141/94; PULSE 108; RESP 14; TEMP 36.7; O2SAT 97
[2021-11-07 19:01] VITALS: BP 123/80; PULSE 91; RESP 18; TEMP 37.1; O2SAT 96
[2021-11-07] MEDS: MORPHINE SULFATE (*CRX) 4 MG/ML INJ IV PUSH ×2 (19:21→21:10)
[2021-11-07] MEDS: PANTOPRAZOLE SODIUM IV 40 MG VIAL IV PUSH (19:21)
[2021-11-07] MEDS: ONDANSETRON INJ 4 MG/2 ML VIAL IV PUSH (19:21)
[2021-11-07] MEDS: SODIUM CHLORIDE 0.9% IV 1,000 ML 999 ML IV CONT (19:22)
--- NOTE | 2021-11-07 19:24 | ED.ABDPAIN ---
HPI - Abdominal Pain General Chief Complaint: Abdominal Pain Stated Complaint: abd pain Time Seen by Provider: 11/07/21 19:02 Source: patient Mode of arrival: ambulatory Limitations: no limitations History of Present Illness HPI narrative: This is a 41-year-old male that presents to the emergency department for nausea and vomiting ongoing over the last couple of hours. Associated with upper abdominal pain. Denies fever or diarrhea. Related Data Home Medications Medication Instructions Recorded Confirmed asqvoi-rzjmujii-rxilguq 1 cap PO TID 03/28/20 07/09/21 36,000-114,000-180,000 unit capsule,delay rel (Creon) duloxetine 60 mg capsule,delayed 60 mg PO BID 01/22/21 07/09/21 release uxtkwc-afeaxssb-vmxazgn 2 cap PO TIDWM 01/22/21 07/09/21 36,000-114,000-180,000 unit capsule,delay rel (Creon) Allergies Allergy/AdvReac Type Severity Reaction Status Date / Time doxycycline Allergy Unknown Gastrointestinal Verified 09/17/21 05:11 Upset metoclopramide Allergy Unknown Muscle Verified 09/17/21 05:11 Spasms sulfamethoxazole Allergy Unknown Gastrointestinal Verified 09/17/21 05:11 Upset trimethoprim Allergy Unknown Gastrointestinal Verified 09/17/21 05:11 Upset Sulfa (Sulfonamide AdvReac Gastrointestinal Verified 09/17/21 05:11 Antibiotics) Upset Review of Systems Review of Systems: CONSTITUTIONAL: Denies fever GASTROINTESTINAL: Reports abdominal pain, nausea, vomiting. Denies diarrhea. All systems reviewed & are unremarkable except as noted in HPI and below PMFSH Past Medical History Medical History Anxiety Chronic pancreatitis Colitis Cyclic vomiting syndrome Cyclical vomiting Depression Gastroenteritis GERD (gastroesophageal reflux disease) Hypertension IBD (inflammatory bowel disease) Kidney stones Pancreatitis Surgical History Surgical History Hx of cholecystectomy Family History Family History Grandparent Acute myocardial infarction Social History Social History Smoking packs per day: 1 Smoking cigarettes per day: 20.0 Years smoked: 20 Smoking pack-years: 20.00 Smoking status: Current every day smoker Tobacco type: cigarettes Alcohol intake: never Substance use: current Substance use type: marijuana Last use: PROBABLY ABOUT A WEEK AGOago Gender identity (if verbalized by the patient): Male Sexual Orientation (if Verbalized by the Patient): Straight or Heterosexual Spiritual care concerns: No Exam Narrative: GENERAL: Well-appearing, well-nourished, and in no acute distress. HEAD: Normocephalic, atraumatic. EYES: EOMI. CHEST: Clear to auscultation. No respiratory distress. No wheezes rales or rhonchi HEART: Regular rate and rhythm. No murmur heard. Normal peripheral pulses. ABDOMEN: Soft, nondistended, normal active bowel sounds. Mild tenderness to palpation in epigastrium, without guarding EXTREMITIES: Normal range of motion. No edema. SKIN: Warm, dry, no rash. NEURO: No focal deficits. Alert and oriented x3. PSYCH: Normal mood and affect Course Vital Signs Vital signs: Vital Signs Temperature 98.0 F 11/07/21 18:21 Pulse Rate 108 H 11/07/21 18:21 Respiratory Rate 14 11/07/21 18:21 Blood Pressure 141/94 H 11/07/21 18:21 Pulse Oximetry 97 11/07/21 18:21 Oxygen Delivery Room Air 11/07/21 18:21 Temperature 98.7 F 11/07/21 19:01 Pulse Rate 75 11/07/21 23:23 Respiratory Rate 18 11/07/21 23:23 Blood Pressure 105/65 11/07/21 23:23 Pulse Oximetry 98 11/07/21 23:23 Oxygen Delivery Room Air 11/07/21 19:01 MDM - Abdominal Pain MDM Narrative Medical decision making narrative: Patient presents to the emergency department for abdominal pain, nausea and vomiting. History
[2021-11-07] MEDS: KETOROLAC 15 MG/ML VIAL (*BKC) IV PUSH (19:25)
[2021-11-07 20:09] LABS: Basophils Absolute Auto 0.1 K/mm3 (0.0-0.1); Basophils Percent Auto 0.4 % (0.2-1.2); Eosinophils Absolute Auto 0.1 K/mm3 (0-0.3); Eosinophils Percent Auto 0.6 % (0-4.4); Hematocrit 34.9 % (42.0-52.0); Hemoglobin 10.7 g/dL (14.0-18.0); Immature Granulocyte Absolute 0.07 K/mm3 (0.00-0.031); Immature Granulocyte Percent A 0.4 % (0-0.5); Lymphocytes Absolute Auto 1.51 K/mm3 (0.9-3.2); Lymphocytes Percent Auto 9.6 % (18.3-44.2); Mean Corpuscular HGB Conc 30.7 g/dl (32-36); Mean Corpuscular Hemoglobin 24.4 pg (26-34); Mean Corpuscular Volume 79.7 fl (80-100); Mean Platelet Volume 9.8 fl (7.4-10.4); Monocytes Absolute Auto 1.1 K/mm3 (0.1-0.6); Monocytes Percent Auto 6.9 % (2.6-8.5); Neutrophils Absolute Auto 12.9 K/mm3 (1.3-6.7); Neutrophils Percent Auto 82.1 % (45.5-73.1); Platelet Count Result 362 k/mm3 (150-375); Red Blood Count 4.38 M/mm3 (4.6-6.20); Red Cell Distribution Width 17.9 % (11.5-14.5); White Blood Count 15.7 K/mm3 (4.5-10.0)
[2021-11-07 20:18] LABS: Alanine Aminotransferase 19 U/L (6-50); Albumin Level 4.2 g/dL (3.5-5.1); Alkaline Phosphatase 71 U/L (38-126); Anion Gap 7 mmol/L (8-16); Aspartate Amino Transferase 23 U/L (17-59); Bilirubin,Total 0.1 mg/dL (0.2-1.3); Blood Urea Nitrogen 6 mg/dL (9-20); Calcium 8.7 mg/dL (8.4-10.2); Carbon Dioxide 27 mmol/L (22-30); Chloride 104 mmol/L (98-107); Estimated CRCL calculation 110 ml/min; Estimated Glomerular Filt Rate > 60; Glucose 139 mg/dL (65-110); Lipase 195 U/L (23-300); Potassium 3.7 mmol/L (3.4-5.0); Sodium 138 mmol/L (137-145)
[2021-11-07] MEDS: LORazepam INJ (*CRX) 2 MG/ML VIAL 1 MG IV PUSH (20:37)
[2021-11-07 21:33] LABS: Appearance Urine Clear (Clear); Bilirubin Urine Negative (Negative); Blood Urine Negative (Negative); Color Urine Yellow (Yellow); Glucose Urine UA Negative (Negative); Ketones Urine Negative (Negative); Leukocyte Esterase Ur Negative LEU/UL (Negative); Nitrate Urine Negative (Negative); Protein Urine Negative (Negative); Urobilinogen Urine 0.2 mg/dL (<2.0)
[2021-11-07 21:36] LABS: Add Urine Microscopic? NO
[2021-11-07] MEDS: DICYCLOMINE HCL INJ 20 MG/2 ML VIAL IM (22:50)
[2021-11-07 23:23] VITALS: BP 105/65; PULSE 75; RESP 18; O2SAT 98
[2021-11-07] MEDS: HYDROmorphone HCL INJ (*CRX) 1 MG/ML SYR 0.5 MG IV PUSH (23:26)
[2021-11-07 23:42] VITALS: BP 100/61; PULSE 64; RESP 16; O2SAT 98
[2021-11-08 00:05] VITALS: BP 119/81; PULSE 65; RESP 16; O2SAT 98
== END 2021-11-08 00:06 | disposition home or self-care (01) ==
PROVIDERS: Physician Assistant; Emergency Provider Preventive Medicine Aerospace Medicine
DX: R10.10 Upper abdominal pain, unspecified (principal); G89.29 Other chronic pain; K86.1 Other chronic pancreatitis; I10 Essential (primary) hypertension; K21.9 Gastro-esophageal reflux disease without esophagitis; K58.9 Irritable bowel syndrome, unspecified; Z87.442 Personal history of urinary calculi; F17.210 Nicotine dependence, cigarettes, uncomplicated
CPT/HCPCS: 36415; 74177; 80053; 81003; 83690; 85025; 96361; 96372; 96374; 96375; 96376; 99284; C9113; J0131; J0500; J1170; J1885; J2060; J2270; J2405; J7030; Q9967

== ENCOUNTER 2021-11-11 10:36 | Emergency (ER) | payer OTHER, SELFPAY ==
[2021-11-11 10:42] VITALS: BP 120/84; PULSE 107; RESP 18; TEMP 36.7; O2SAT 100
[2021-11-11 10:54] LABS: Basophils Percent Auto 0.5 % (0.2-1.2); Eosinophils Absolute Auto 0.3 K/mm3 (0-0.3); Eosinophils Percent Auto 3.8 % (0-4.4); Hematocrit 37.3 % (42.0-52.0); Hemoglobin 11.4 g/dL (14.0-18.0); Immature Granulocyte Absolute 0.04 K/mm3 (0.00-0.031); Immature Granulocyte Percent A 0.5 % (0-0.5); Lymphocytes Absolute Auto 2.55 K/mm3 (0.9-3.2); Lymphocytes Percent Auto 33.2 % (18.3-44.2); Mean Corpuscular HGB Conc 30.6 g/dl (32-36); Mean Corpuscular Hemoglobin 24.4 pg (26-34); Mean Corpuscular Volume 79.7 fl (80-100); Mean Platelet Volume 9.1 fl (7.4-10.4); Monocytes Absolute Auto 0.9 K/mm3 (0.1-0.6); Monocytes Percent Auto 11.7 % (2.6-8.5); Neutrophils Absolute Auto 3.9 K/mm3 (1.3-6.7); Neutrophils Percent Auto 50.3 % (45.5-73.1); Platelet Count Result 386 k/mm3 (150-375); Red Blood Count 4.68 M/mm3 (4.6-6.20); Red Cell Distribution Width 18.5 % (11.5-14.5); White Blood Count 7.7 K/mm3 (4.5-10.0)
[2021-11-11 11:05] LABS: Alanine Aminotransferase 17 U/L (6-50); Albumin Level 4.3 g/dL (3.5-5.1); Alkaline Phosphatase 77 U/L (38-126); Anion Gap 8 mmol/L (8-16); Aspartate Amino Transferase 21 U/L (17-59); Bilirubin,Total 0.2 mg/dL (0.2-1.3); Blood Urea Nitrogen 12 mg/dL (9-20); Calcium 8.7 mg/dL (8.4-10.2); Carbon Dioxide 25 mmol/L (22-30); Chloride 105 mmol/L (98-107); Estimated CRCL calculation 99 ml/min; Estimated Glomerular Filt Rate > 60; Glucose 128 mg/dL (65-110); Lipase 126 U/L (23-300); Potassium 4.2 mmol/L (3.4-5.0); Sodium 138 mmol/L (137-145)
--- NOTE | 2021-11-11 11:42 | ED.ABDPAIN ---
HPI - Abdominal Pain General Chief Complaint: Abdominal Pain Stated Complaint: abd pain Time Seen by Provider: 11/11/21 11:37 History of Present Illness HPI narrative: Patient is a 41-year-old male with a history of cyclic vomiting syndrome here for evaluation of nausea, vomiting abdominal pain today. States that he woke up with the pain, which is described as a burning pain in his epigastrium. He has vomited about 8 times since waking up this morning. Denies blood in his vomit, fevers, chills, diarrhea, constipation, blood in stools. Denies recent alcohol or marijuana use. Patient has a history of hyperemesis for which he presents to this emergency department frequently, twice in October. CT abdomen pelvis in the past have been unrevealing. Related Data Home Medications Medication Instructions Recorded Confirmed sdcmqc-wmukitfw-cvzxpoz 1 cap PO TID 03/28/20 07/09/21 36,000-114,000-180,000 unit capsule,delay rel (Creon) duloxetine 60 mg capsule,delayed 60 mg PO BID 01/22/21 07/09/21 release kssepk-fjzycqsq-qpflpzb 2 cap PO TIDWM 01/22/21 07/09/21 36,000-114,000-180,000 unit capsule,delay rel (Creon) Allergies Allergy/AdvReac Type Severity Reaction Status Date / Time doxycycline Allergy Unknown Gastrointestinal Verified 11/11/21 10:45 Upset metoclopramide Allergy Unknown Muscle Verified 11/11/21 10:45 Spasms sulfamethoxazole Allergy Unknown Gastrointestinal Verified 11/11/21 10:45 Upset trimethoprim Allergy Unknown Gastrointestinal Verified 11/11/21 10:45 Upset Sulfa (Sulfonamide AdvReac Gastrointestinal Verified 11/11/21 10:45 Antibiotics) Upset Review of Systems Review of Systems: Gen: Denies fevers or chills Eyes: Denies eye pain or visual change ENT: Denies congestion Respiratory: Denies shortness of breath or cough CV: Denies chest pain or palpitations GI: Reports abdominal pain, nausea, vomiting denies burning, urgency, frequency or hematuria Musculoskeletal: Denies back pain or muscle pain Neuro: Denies numbness, tingling, weakness or focal weakness Skin: Denies rash Except as documented, all other systems reviewed and negative PMFSH Past Medical History Medical History Anxiety Chronic pancreatitis Colitis Cyclic vomiting syndrome Cyclical vomiting Depression Gastroenteritis GERD (gastroesophageal reflux disease) Hypertension IBD (inflammatory bowel disease) Kidney stones Pancreatitis Surgical History Surgical History Hx of cholecystectomy Family History Family History Grandparent Acute myocardial infarction Social History Social History Smoking packs per day: 1 Smoking cigarettes per day: 20.0 Years smoked: 20 Smoking pack-years: 20.00 Smoking status: Current every day smoker Tobacco type: cigarettes Alcohol intake: never Substance use: current Substance use type: marijuana Last use: PROBABLY ABOUT A WEEK AGOago Gender identity (if verbalized by the patient): Male Sexual Orientation (if Verbalized by the Patient): Straight or Heterosexual Spiritual care concerns: No Exam Narrative: APPEARANCE: Well appearing, no pain in distress, well-nourished. Head: Normocephalic and atraumatic. EYES: PERRLA/EOMI, conjunctivae clear NOSE: No nasal drainage EARS: External ear normal in appearance THROAT: Oropharynx is clear. Mucous membranes are moist. NECK: Supple. No adenopathy, no masses. RESPIRATORY: Airway patent, respirations nonlabored. Clear to auscultation bilaterally, no rales, rhonchi, wheezing. CARDIOVASCULAR: Regular rate and rhythm without murmurs, rubs, or gallops. ABDOMINAL: Mildly tender to palpation in epigastric region. Normoactive bowel sounds. Soft, nondistended. No rebound tendernes
[2021-11-11] MEDS: MORPHINE SULFATE (*CRX) 4 MG/ML INJ IV PUSH (13:00)
[2021-11-11] MEDS: PANTOPRAZOLE SODIUM IV 40 MG VIAL IV PUSH (13:00)
[2021-11-11] MEDS: LACTATED RINGERS 1,000 ML 999 ML IV CONT (13:01)
[2021-11-11 13:45] LABS: Mucus Urine Rare /lpf; RBC Urine 0-2 /hpf (0-2); WBC Urine 0-3 /hpf
[2021-11-11 13:48] LABS: Appearance Urine Clear (Clear); Bilirubin Urine Negative (Negative); Blood Urine Negative (Negative); Color Urine Yellow (Yellow); Glucose Urine UA Negative (Negative); Ketones Urine Negative (Negative); Leukocyte Esterase Ur Negative LEU/UL (Negative); Nitrate Urine Negative (Negative); Protein Urine Negative (Negative); Specific Grav Ur 1.015 (1.001-1.035); Urobilinogen Urine 0.2 mg/dL (<2.0)
[2021-11-11 13:54] LABS: Add Urine Microscopic? NO
[2021-11-11] MEDS: ONDANSETRON INJ 4 MG/2 ML VIAL IV PUSH (14:26)
[2021-11-11] MEDS: MORPHINE SULFATE (*CRX) 2 MG/ML INJ IV PUSH (14:26)
== END 2021-11-11 15:38 | disposition home or self-care (01) ==
PROVIDERS: Emergency Provider Emergency Medicine
DX: G43.A0 Cyclical vomiting, in migraine, not intractable (principal); I10 Essential (primary) hypertension; K86.1 Other chronic pancreatitis; F17.210 Nicotine dependence, cigarettes, uncomplicated
CPT/HCPCS: 36415; 80053; 81003; 83690; 85025; 96361; 96374; 96375; 96376; 99284; C9113; J2270; J2405; J7120

== ENCOUNTER 2021-11-22 13:21 | Emergency (ER) | payer OTHER, SELFPAY ==
[2021-11-22] VITALS (7 sets, daily range): BP systolic 114–169; BP diastolic 67–104; PULSE 60–77; RESP 16–20; TEMP 36.2–36.8; O2SAT 97–100
--- NOTE | ~2021-11-22 | CT_ITS ---
EXAMINATION: CT abdomen pelvis w con DATE: 11/22/2021 16:02 INDICATION: Epigastric pain, nausea, vomiting and elevated lipase TECHNIQUE: Computed tomography (CT) of the abdomen and pelvis was performed with 100 mL Omnipaque-300 intravenous contrast. Automated exposure control and iterative reconstruction technique were employe d. The dose-length product was 403.97 mGy-cm. COMPARISON: 11/07/2021 FINDINGS: Lung bases are clear. Heart size is normal. No pericardial or pleural effusion. Again seen is a minim al amount of pneumobilia likely related to prior cholecystectomy and centrally with surgical clips at the gallbladder fossa. Spleen, pancreas, bilateral adrenal glands and kidneys are normal. No evident peripancreatic inflammatory stranding. Bowels including the appendix are normal. Small fat-containin g umbilical and right inguinal hernias. No free intraperitoneal gas or fluid. No pathologically enlar ged abdominal or pelvic lymphadenopathy. Bones are unremarkable. IMPRESSION: 1. No acute intra-abdominal/pelvic process. Reviewed, dictated and finalized at location B.
--- NOTE | 2021-11-22 14:00 | ED.ABDPAIN ---
HPI - Abdominal Pain General Chief Complaint: Abdominal Pain <JORDI Sandoval Last Filed: 11/22/21 19:54> Stated Complaint: abd pain, vomiting <JORDI Sandoval Last Filed: 11/22/21 19:54> Time Seen by Provider: 11/22/21 13:29 <JORDI Sandoval Last Filed: 11/22/21 19:54> Source: patient <JORDI Sandoval Last Filed: 11/22/21 19:54> Mode of arrival: ambulatory <JORDI Sandoval Last Filed: 11/22/21 19:54> Limitations: no limitations <JORDI Sandoval Last Filed: 11/22/21 19:54> History of Present Illness HPI narrative: Patient is a 41-year-old male who with a history of cyclical vomiting syndrome, who presents the ED with report of N/V/D and abdominal pain. Patient reports he woke up this morning with pain in his upper abdomen. He then developed nausea and vomiting. He reports 4 episodes of vomiting prior to arrival today. He did try taking home Zofran without relief. Has not taken anything for pain. States his pain is more of his concern today than the vomiting. Patient has been seen at our facility several times for similar symptoms. Denies any fever, chills, diarrhea, constipation, hematemesis, dysuria, hematuria. Denies any ETOH or recent marijuana use. <JORDI Sandoval Last Filed: 11/22/21 19:54> Related Data Home Medications: Home Medications Medication Instructions Recorded Confirmed rrtvun-sodrqugk-eiatsaw 1 cap PO TID 03/28/20 07/09/21 36,000-114,000-180,000 unit capsule,delay rel (Creon) duloxetine 60 mg capsule,delayed 60 mg PO BID 01/22/21 07/09/21 release eeunvp-yrqgreqd-gteyhsb 2 cap PO TIDWM 01/22/21 07/09/21 36,000-114,000-180,000 unit capsule,delay rel (Creon) <JORDI Sandoval Last Filed: 11/22/21 19:54> Allergies/Adverse Reactions: Allergies Allergy/AdvReac Type Severity Reaction Status Date / Time doxycycline Allergy Unknown Gastrointestinal Verified 11/11/21 10:45 Upset metoclopramide Allergy Unknown Muscle Verified 11/11/21 10:45 Spasms sulfamethoxazole Allergy Unknown Gastrointestinal Verified 11/11/21 10:45 Upset trimethoprim Allergy Unknown Gastrointestinal Verified 11/11/21 10:45 Upset Sulfa (Sulfonamide AdvReac Gastrointestinal Verified 11/11/21 10:45 Antibiotics) Upset <Cary Romeo PA-C - Last Filed: 11/22/21 19:54> Review of Systems Review of Systems: CONSTITUTIONAL: Denies fever, chills, or sweats. CARDIOVASCULAR: Denies chest pain. RESPIRATORY: Denies dyspnea. GASTROINTESTINAL: Reports upper abdominal pain, nausea, vomiting. Denies hematemesis, constipation, or diarrhea. GENITOURINARY: Denies dysuria or hematuria. MUSCULOSKELETAL: Denies back pain. <Cary Romeo PA-C - Last Filed: 11/22/21 19:54> All systems reviewed & are unremarkable except as noted in HPI and below <Cary Romeo PA-C - Last Filed: 11/22/21 19:54> [facility] Past Medical History Medical History: Medical History Anxiety Chronic pancreatitis Colitis Cyclic vomiting syndrome Cyclical vomiting Depression Gastroenteritis GERD (gastroesophageal reflux disease) Hypertension IBD (inflammatory bowel disease) Kidney stones Pancreatitis <Cary Romeo PA-C - Last Filed: 11/22/21 19:54> Surgical History Surgical History: Surgical History Hx of cholecystectomy <Cary Romeo PA-C - Last Filed: 11/22/21 19:54> Family History Family History: Family History Grandparent Acute myocardial infarction <Cary Romeo PA-C - Last Filed: 11/22/21 19:54> Social History Social History: Social History Smoking packs per day: 1 Smoking cigarettes per day: 20.0 Years smoked: 20 Smoking pack-years: 20.00 Smoking status: C
[2021-11-22 14:07] LABS: Basophils Absolute Auto 0.1 K/mm3 (0.0-0.1); Basophils Percent Auto 0.6 % (0.2-1.2); Eosinophils Absolute Auto 0.3 K/mm3 (0-0.3); Eosinophils Percent Auto 1.9 % (0-4.4); Hematocrit 38.7 % (42.0-52.0); Immature Granulocyte Absolute 0.05 K/mm3 (0.00-0.031); Immature Granulocyte Percent A 0.4 % (0-0.5); Lymphocytes Absolute Auto 2.35 K/mm3 (0.9-3.2); Lymphocytes Percent Auto 17.7 % (18.3-44.2); Mean Corpuscular Hemoglobin 24.7 pg (26-34); Mean Corpuscular Volume 79.6 fl (80-100); Mean Platelet Volume 9.2 fl (7.4-10.4); Monocytes Absolute Auto 1.1 K/mm3 (0.1-0.6); Monocytes Percent Auto 8.3 % (2.6-8.5); Neutrophils Absolute Auto 9.5 K/mm3 (1.3-6.7); Neutrophils Percent Auto 71.1 % (45.5-73.1); Platelet Count Result 375 k/mm3 (150-375); Red Blood Count 4.86 M/mm3 (4.6-6.20); White Blood Count 13.3 K/mm3 (4.5-10.0)
[2021-11-22 14:17] LABS: Alanine Aminotransferase 16 U/L (6-50); Albumin Level 4.6 g/dL (3.5-5.1); Alkaline Phosphatase 103 U/L (38-126); Anion Gap 8 mmol/L (8-16); Aspartate Amino Transferase 25 U/L (17-59); Bilirubin,Total 0.6 mg/dL (0.2-1.3); Blood Urea Nitrogen 10 mg/dL (9-20); Calcium 9.1 mg/dL (8.4-10.2); Carbon Dioxide 23 mmol/L (22-30); Chloride 109 mmol/L (98-107); Estimated CRCL calculation 99 ml/min; Estimated Glomerular Filt Rate > 60; Glucose 123 mg/dL (65-110); Lipase 343 U/L (23-300); Potassium 3.6 mmol/L (3.4-5.0); Sodium 140 mmol/L (137-145)
[2021-11-22] MEDS: KETOROLAC 30 MG/ML VIAL (*BKC) IV PUSH (14:31)
[2021-11-22] MEDS: PANTOPRAZOLE SODIUM IV 40 MG VIAL IV PUSH (14:31)
[2021-11-22] MEDS: ONDANSETRON INJ 4 MG/2 ML VIAL IV PUSH (14:31)
[2021-11-22] MEDS: SODIUM CHLORIDE 0.9% IV 1,000 ML 999 ML IV CONT ×2 (14:32→16:31)
[2021-11-22] MEDS: MORPHINE SULFATE (*CRX) 4 MG/ML INJ IV PUSH (14:32)
[2021-11-22] MEDS: HYDROmorphone HCL INJ (*CRX) 1 MG/ML SYR IV PUSH (15:25)
[2021-11-22 15:35] LABS: Appearance Urine Clear (Clear); Bilirubin Urine Negative (Negative); Blood Urine Negative (Negative); Color Urine Yellow (Yellow); Glucose Urine UA Negative (Negative); Ketones Urine 2+ mg/dL (Negative); Leukocyte Esterase Ur Negative LEU/UL (Negative); Nitrate Urine Negative (Negative); Protein Urine Negative (Negative); pH Urine 8.5 (5.0-9.0)
[2021-11-22 15:46] LABS: Add Urine Microscopic? YES; Amorphous Sediment Urine Few; Bacteria Urine Trace /hpf; Mucus Urine Rare /lpf; Squamous Epithelial Cell Urine Rare /hpf (Few)
[2021-11-22] MEDS: DICYCLOMINE HCL INJ 20 MG/2 ML VIAL IM (16:38)
[2021-11-22] MEDS: PROMETHAZINE HCL 25 MG/ML AMPUL 12.5 MG IV PUSH (16:38)
== END 2021-11-22 18:07 | disposition home or self-care (01) ==
PROVIDERS: Physician Assistant; Emergency Provider Emergency Medicine
DX: R11.15 Cyclical vomiting syndrome unrelated to migraine (principal); R10.13 Epigastric pain; G89.29 Other chronic pain; K86.1 Other chronic pancreatitis; K21.9 Gastro-esophageal reflux disease without esophagitis; I10 Essential (primary) hypertension; K58.9 Irritable bowel syndrome, unspecified; Z87.442 Personal history of urinary calculi; F17.210 Nicotine dependence, cigarettes, uncomplicated
CPT/HCPCS: 36415; 74177; 80053; 81001; 83690; 85025; 96361; 96365; 96372; 96375; 99284; C9113; J0131; J0500; J1170; J1885; J2270; J2405; J2550; J7030; Q9967

== ENCOUNTER 2021-12-05 15:32 | Emergency (ER) | payer OTHER, SELFPAY ==
[2021-12-05 15:34] VITALS: BP 139/90; PULSE 115; RESP 16; TEMP 36.6; O2SAT 100
[2021-12-05 15:55] LABS: Basophils Percent Auto 0.3 % (0.2-1.2); Hematocrit 37.5 % (42.0-52.0); Hemoglobin 11.5 g/dL (14.0-18.0); Immature Granulocyte Absolute 0.05 K/mm3 (0.00-0.031); Immature Granulocyte Percent A 0.4 % (0-0.5); Lymphocytes Absolute Auto 1.12 K/mm3 (0.9-3.2); Lymphocytes Percent Auto 9.9 % (18.3-44.2); Mean Corpuscular HGB Conc 30.7 g/dl (32-36); Mean Corpuscular Hemoglobin 24.8 pg (26-34); Mean Corpuscular Volume 80.8 fl (80-100); Mean Platelet Volume 9.7 fl (7.4-10.4); Monocytes Absolute Auto 0.9 K/mm3 (0.1-0.6); Monocytes Percent Auto 8.3 % (2.6-8.5); Neutrophils Absolute Auto 9.1 K/mm3 (1.3-6.7); Neutrophils Percent Auto 81.1 % (45.5-73.1); Platelet Count Result 331 k/mm3 (150-375); Red Blood Count 4.64 M/mm3 (4.6-6.20); White Blood Count 11.3 K/mm3 (4.5-10.0)
--- NOTE | 2021-12-05 16:01 | ED.GENADULT ---
HPI - General Adult General Chief complaint: Nausea/Vomiting/Diarrhea Stated complaint: abdominal pain with vomiting x several hours Time Seen by Provider: 12/05/21 15:37 Source: patient and old records reviewed Mode of arrival: ambulatory Limitations: no limitations History of Present Illness HPI narrative: Patient is a 41-year-old male, with a history of cyclical vomiting and chronic epigastric abdominal pain, who presents the ED with report of abdominal pain and nausea/vomiting. Patient reports he has been doing fairly well since the last time he was seen in the ED here, though he does mention he has been seen at outside hospitals, as well. This morning, a few hours ago, he developed pain in his upper abdomen in addition to nausea and vomiting. He tried taking his Zofran ODT at home without relief. He did not try anything for his pain. He states he does not have anything at home for pain. Denies any fever, chills, diarrhea, constipation, rectal bleeding, hematemesis. He has a follow-up with his GI doctor, Dr. Woodard next week. Related Data Home Medications Medication Instructions Recorded Confirmed wijjlc-uvaynpvg-dklbvmv 1 cap PO TID 03/28/20 07/09/21 36,000-114,000-180,000 unit capsule,delay rel (Creon) duloxetine 60 mg capsule,delayed 60 mg PO BID 01/22/21 07/09/21 release iuqkjv-usbhrvsf-dlnqpsk 2 cap PO TIDWM 01/22/21 07/09/21 36,000-114,000-180,000 unit capsule,delay rel (Creon) Allergies Allergy/AdvReac Type Severity Reaction Status Date / Time doxycycline Allergy Unknown Gastrointestinal Verified 12/05/21 15:33 Upset metoclopramide Allergy Unknown Muscle Verified 12/05/21 15:33 Spasms sulfamethoxazole Allergy Unknown Gastrointestinal Verified 12/05/21 15:33 Upset trimethoprim Allergy Unknown Gastrointestinal Verified 12/05/21 15:33 Upset Sulfa (Sulfonamide AdvReac Gastrointestinal Verified 12/05/21 15:33 Antibiotics) Upset Review of Systems Review of Systems: CONSTITUTIONAL: Denies fever, chills, or sweats. CARDIOVASCULAR: Denies chest pain. RESPIRATORY: Denies dyspnea. GASTROINTESTINAL: Reports abdominal pain, nausea, vomiting. Denies constipation, rectal bleeding, hematemesis, or diarrhea. GENITOURINARY: Denies dysuria or hematuria. NEUROLOGIC: Denies headache, numbness, or weakness. All systems reviewed & are unremarkable except as noted in HPI and below PMFSH Past Medical History Medical History Anxiety Chronic pancreatitis Colitis Cyclic vomiting syndrome Cyclical vomiting Depression Gastroenteritis GERD (gastroesophageal reflux disease) Hypertension IBD (inflammatory bowel disease) Kidney stones Pancreatitis Surgical History Surgical History Hx of cholecystectomy Family History Family History Grandparent Acute myocardial infarction Social History Social History Smoking packs per day: 1 Smoking cigarettes per day: 20.0 Years smoked: 20 Smoking pack-years: 20.00 Smoking status: Current every day smoker Tobacco type: cigarettes Alcohol intake: never Substance use: current Substance use type: marijuana Last use: PROBABLY ABOUT A WEEK AGOago Gender identity (if verbalized by the patient): Male Sexual Orientation (if Verbalized by the Patient): Straight or Heterosexual Spiritual care concerns: No Exam Narrative: GENERAL: Mildly ill appearing, well-nourished, non-toxic, in mild acute distress. HEAD: Normocephalic, atraumatic. NECK: Supple. No adenopathy, no masses. RESPIRATORY: Airway patent, respirations nonlabored. Clear to auscultation bilaterally, no rales, rhonchi, wheezing. CARDIOVASCULAR: Borderline tachycardic with regular rhythm without murmurs, rubs, or gallops. Peripheral pulses 2+ and equal bilate
[2021-12-05 16:09] LABS: Albumin Level 4.6 g/dL (3.5-5.1); Alkaline Phosphatase 78 U/L (38-126); Anion Gap 14 mmol/L (8-16); Aspartate Amino Transferase 32 U/L (17-59); Bilirubin,Total 0.6 mg/dL (0.2-1.3); Blood Urea Nitrogen 9 mg/dL (9-20); Carbon Dioxide 20 mmol/L (22-30); Chloride 106 mmol/L (98-107); Estimated CRCL calculation 110 ml/min; Estimated Glomerular Filt Rate > 60; Glucose 149 mg/dL (65-110); Lipase 82 U/L (23-300); Potassium 4.3 mmol/L (3.4-5.0); Sodium 140 mmol/L (137-145)
[2021-12-05 16:12] LABS: Alanine Aminotransferase 32 U/L (6-50)
[2021-12-05] MEDS: ONDANSETRON INJ 4 MG/2 ML VIAL IV PUSH (16:30)
[2021-12-05] MEDS: KETOROLAC 30 MG/ML VIAL (*BKC) IV PUSH (16:30)
[2021-12-05] MEDS: SODIUM CHLORIDE 0.9% IV 1,000 ML 999 ML IV CONT (16:31)
[2021-12-05] MEDS: PANTOPRAZOLE SODIUM IV 40 MG VIAL IV PUSH (16:31)
[2021-12-05] MEDS: BELLADONNA ALK/PHENOB ELIX 10 ML, MAG HYDROX/ALUMINUM HYD/SIMETH 30 ML, LIDOCAINE HCL 2... PO (16:32)
[2021-12-05 17:28] LABS: Appearance Urine Clear (Clear); Bilirubin Urine Negative (Negative); Blood Urine Negative (Negative); Color Urine Yellow (Yellow); Glucose Urine UA Trace mg/dL (Negative); Ketones Urine Negative (Negative); Leukocyte Esterase Ur Negative LEU/UL (Negative); Nitrate Urine Negative (Negative); Protein Urine Negative (Negative); Specific Grav Ur 1.015 (1.001-1.035); Urobilinogen Urine 0.2 mg/dL (<2.0)
[2021-12-05 17:37] LABS: Add Urine Microscopic? YES; Mucus Urine Rare /lpf; RBC Urine 0-2 /hpf (0-2); WBC Urine 0-3 /hpf
[2021-12-05 18:42] VITALS: BP 150/88; PULSE 102; RESP 19; O2SAT 99
[2021-12-05] MEDS: HYDROmorphone HCL INJ (*CRX) 1 MG/ML SYR IV PUSH (18:50)
[2021-12-05 19:33] VITALS: BP 133/86; PULSE 111; RESP 16; O2SAT 98
== END 2021-12-05 19:35 | disposition home or self-care (01) ==
PROVIDERS: Physician Assistant; Emergency Provider Emergency Medicine
DX: R11.15 Cyclical vomiting syndrome unrelated to migraine (principal); R10.13 Epigastric pain; G89.29 Other chronic pain; K86.1 Other chronic pancreatitis; K21.9 Gastro-esophageal reflux disease without esophagitis; I10 Essential (primary) hypertension; K58.9 Irritable bowel syndrome, unspecified; Z87.442 Personal history of urinary calculi; F17.210 Nicotine dependence, cigarettes, uncomplicated
CPT/HCPCS: 36415; 80053; 81001; 83690; 85025; 96361; 96365; 96375; 99284; A9270; C9113; J0131; J1170; J1885; J2405; J7030

== ENCOUNTER 2021-12-07 20:14 | Emergency (ER) | payer OTHER, SELFPAY ==
[2021-12-07 20:15] VITALS: BP 172/107; PULSE 93; RESP 16; TEMP 37.3; O2SAT 98
[2021-12-07 20:27] LABS: Basophils Absolute Auto 0.1 K/mm3 (0.0-0.1); Basophils Percent Auto 0.5 % (0.2-1.2); Eosinophils Absolute Auto 0.1 K/mm3 (0-0.3); Eosinophils Percent Auto 1.1 % (0-4.4); Hemoglobin 12.3 g/dL (14.0-18.0); Immature Granulocyte Absolute 0.04 K/mm3 (0.00-0.031); Immature Granulocyte Percent A 0.3 % (0-0.5); Lymphocytes Absolute Auto 3.86 K/mm3 (0.9-3.2); Lymphocytes Percent Auto 33.7 % (18.3-44.2); Mean Corpuscular HGB Conc 30.8 g/dl (32-36); Mean Corpuscular Hemoglobin 24.8 pg (26-34); Mean Corpuscular Volume 80.8 fl (80-100); Mean Platelet Volume 9.5 fl (7.4-10.4); Monocytes Absolute Auto 1.3 K/mm3 (0.1-0.6); Monocytes Percent Auto 11.7 % (2.6-8.5); Neutrophils Percent Auto 52.7 % (45.5-73.1); Platelet Count Result 386 k/mm3 (150-375); Red Blood Count 4.95 M/mm3 (4.6-6.20); Red Cell Distribution Width 20.5 % (11.5-14.5); White Blood Count 11.5 K/mm3 (4.5-10.0)
[2021-12-07 20:38] LABS: Alanine Aminotransferase 19 U/L (6-50); Albumin Level 4.6 g/dL (3.5-5.1); Alkaline Phosphatase 94 U/L (38-126); Anion Gap 12 mmol/L (8-16); Aspartate Amino Transferase 22 U/L (17-59); Bilirubin,Total 0.4 mg/dL (0.2-1.3); Blood Urea Nitrogen 9 mg/dL (9-20); Calcium 9.6 mg/dL (8.4-10.2); Carbon Dioxide 25 mmol/L (22-30); Chloride 106 mmol/L (98-107); Estimated CRCL calculation 90 ml/min; Estimated Glomerular Filt Rate > 60; Glucose 104 mg/dL (65-110); Lipase 546 U/L (23-300); Potassium 3.8 mmol/L (3.4-5.0); Sodium 143 mmol/L (137-145)
--- NOTE | 2021-12-07 22:14 | ED.ABDPAIN ---
HPI - Abdominal Pain General Chief Complaint: Abdominal Pain Stated Complaint: abd pain, n/v Time Seen by Provider: 12/07/21 22:09 History of Present Illness HPI narrative: Patient is a 5-year-old male complaining of right upper quadrant pain, 9 out of 10, sharp, nonradiating started 2 hours prior to arrival. Patient has had multiple ER visits secondary abdominal pain, had approximately 6 CT scans of his abdomen pelvis this year alone and did not show any acute intra-abdominal process. Patient denies any chest pain, shortness of breath, nausea, vomiting, diarrhea, fever or chills. Related Data Home Medications Medication Instructions Recorded Confirmed jyrimf-crtqugnb-vrbgbgm 1 cap PO TID 03/28/20 07/09/21 36,000-114,000-180,000 unit capsule,delay rel (Creon) duloxetine 60 mg capsule,delayed 60 mg PO BID 01/22/21 07/09/21 release jxagmi-ydnmcmxp-zcgthdl 2 cap PO TIDWM 01/22/21 07/09/21 36,000-114,000-180,000 unit capsule,delay rel (Creon) Allergies Allergy/AdvReac Type Severity Reaction Status Date / Time doxycycline Allergy Unknown Gastrointestinal Verified 12/05/21 15:33 Upset metoclopramide Allergy Unknown Muscle Verified 12/05/21 15:33 Spasms sulfamethoxazole Allergy Unknown Gastrointestinal Verified 12/05/21 15:33 Upset trimethoprim Allergy Unknown Gastrointestinal Verified 12/05/21 15:33 Upset Sulfa (Sulfonamide AdvReac Gastrointestinal Verified 12/05/21 15:33 Antibiotics) Upset Review of Systems Review of Systems: All systems reviewed & are unremarkable except as noted in HPI and below Constitutional: Constitutional: Denies body ache(s), Denies chills, Denies excessive sweating, Denies fatigue, Denies fever(s), Denies headache(s), Denies lethargy, Denies malaise, Denies weakness and Denies weight loss Eyes: Eyes: Denies blurry vision, Denies change in vision and Denies loss of vision ENT: Denies dizziness, Denies ear discharge, Denies headache(s), Denies lip swelling, Denies epistaxis, Denies nasal congestion, Denies neck pain, Denies throat swelling and Denies tongue swelling Cardiovascular: Cardiovascular: Denies chest pain, Denies chest pain at rest, Denies chest pain with activity, Denies diaphoresis, Denies rapid heart rate, Denies edema, Denies irregular heart rhythm, Denies lightheadedness, Denies palpitations, Denies dyspnea and Denies dyspnea on exertion Respiratory: Respiratory: Denies chest congestion, Denies cough, Denies hemoptysis, Denies dyspnea and Denies dyspnea on exertion Gastrointestinal: Gastrointestinal: Denies melena, Denies hematochezia, Denies diarrhea, Denies nausea, Denies vomiting and Denies hematemesis Musculoskeletal: Musculoskeletal: Denies abnormal gait, Denies deformity, Denies joint swelling, Denies limited range of motion, Denies neck pain and Denies numbness Neurologic: Denies Abnormal speech present, Denies abnormal gait, Denies confusion, Denies dizziness, Denies headache(s), Denies focal weakness, Denies loss of vision, Denies numbness, Denies Other visual disturbances, Denies Sensory deficit (Neuro) and Denies weakness Psychiatric: Psychiatric: Denies confusion, Denies depression, Denies auditory hallucinations, Denies homicidal ideation and Denies suicidal ideation Endocrine: Endocrine: Denies cold intolerance, Denies excessive sweating, Denies fatigue, Denies heat intolerance and Denies palpitations Hematologic/Lymphatic: Hematologic/Lymphatic: Denies easy bleeding and Denies easy bruising Allergic/Immunologic: Allergic/Immunologic: Denies lip swelling, Denies throat swelling and Denies tongue swelling PMFSH Past Medical History Medical History Anxiety Chronic pancreatitis Colitis Cyclic vomiting syndrome Cyclical vomiting Depression Gastroenteritis GERD (gastroesophageal reflux disease) Hypertension IBD (inflammatory bowel disease) Kidney stones Pancreatitis Surgical
[2021-12-07] MEDS: KETOROLAC 30 MG/ML VIAL (*BKC) IM (22:56)
[2021-12-07] MEDS: PROMETHAZINE HCL 25 MG/ML AMPUL IM (22:56)
== END 2021-12-07 23:13 | disposition home or self-care (01) ==
PROVIDERS: Emergency Provider Emergency Medicine
DX: K86.1 Other chronic pancreatitis (principal); I10 Essential (primary) hypertension; K21.9 Gastro-esophageal reflux disease without esophagitis; K58.9 Irritable bowel syndrome, unspecified; Z87.442 Personal history of urinary calculi; F17.210 Nicotine dependence, cigarettes, uncomplicated
CPT/HCPCS: 36415; 80053; 83690; 85025; 96372; 99284; J1885; J2550

== ENCOUNTER 2022-01-20 15:03 | Emergency (ER) | payer OTHER, SELFPAY ==
[2022-01-20] VITALS (11 sets, daily range): BP systolic 147–168; BP diastolic 78–106; PULSE 72–88; RESP 16–18; TEMP 36; O2SAT 98–100
[2022-01-20 16:03] LABS: Basophils Absolute Auto 0.1 K/mm3 (0.0-0.1); Basophils Percent Auto 0.4 % (0.2-1.2); Eosinophils Absolute Auto 0.2 K/mm3 (0-0.3); Eosinophils Percent Auto 1.3 % (0-4.4); Hemoglobin 12.3 g/dL (14.0-18.0); Immature Granulocyte Absolute 0.07 K/mm3 (0.00-0.031); Immature Granulocyte Percent A 0.5 % (0-0.5); Lymphocytes Absolute Auto 1.96 K/mm3 (0.9-3.2); Lymphocytes Percent Auto 13.8 % (18.3-44.2); Mean Corpuscular HGB Conc 31.5 g/dl (32-36); Mean Corpuscular Hemoglobin 25.8 pg (26-34); Mean Corpuscular Volume 81.8 fl (80-100); Mean Platelet Volume 9.4 fl (7.4-10.4); Monocytes Absolute Auto 1.3 K/mm3 (0.1-0.6); Monocytes Percent Auto 9.1 % (2.6-8.5); Neutrophils Absolute Auto 10.6 K/mm3 (1.3-6.7); Neutrophils Percent Auto 74.9 % (45.5-73.1); Platelet Count Result 354 k/mm3 (150-375); Red Blood Count 4.77 M/mm3 (4.6-6.20); Red Cell Distribution Width 18.6 % (11.5-14.5); White Blood Count 14.2 K/mm3 (4.5-10.0)
[2022-01-20 16:13] LABS: Alanine Aminotransferase 22 U/L (6-50); Albumin Level 4.4 g/dL (3.5-5.1); Alkaline Phosphatase 88 U/L (38-126); Anion Gap 10 mmol/L (8-16); Aspartate Amino Transferase 27 U/L (17-59); Bilirubin,Total 0.4 mg/dL (0.2-1.3); Blood Urea Nitrogen 10 mg/dL (9-20); Calcium 9.4 mg/dL (8.4-10.2); Carbon Dioxide 24 mmol/L (22-30); Chloride 106 mmol/L (98-107); Estimated CRCL calculation 99 ml/min; Estimated Glomerular Filt Rate > 60; Glucose 105 mg/dL (65-110); Lipase 393 U/L (23-300); Potassium 3.9 mmol/L (3.4-5.0); Sodium 140 mmol/L (137-145)
--- NOTE | 2022-01-20 18:43 | ED.GENADULT ---
HPI - General Adult General Chief complaint: Nausea/Vomiting/Diarrhea Stated complaint: n/v Time Seen by Provider: 01/20/22 18:05 Source: patient and old records reviewed Mode of arrival: ambulatory Limitations: no limitations History of Present Illness HPI narrative: Patient is a 41 y/o male, with a history of of cyclic vomiting syndrome and chronic epigastric abdominal pain, who presents to the ED with report of abdominal pain and nausea and vomiting. Patient reports he woke up this morning with abdominal pain. Pain has been persistent since then. He has been unable to keep down any food or fluid. He tried taking Zofran at home without relief. He states he has been doing well lately and has not had episode of pain in a while. Does not have an appointment currently to see his GI specialist. Denies any diarrhea, fevers, hematemesis, urinary symptoms. No recent marijuana or alcohol use. Patient states current pain feels typical to his usual attacks. Related Data Home Medications Medication Instructions Recorded Confirmed oglofa-ofhlhmbn-dffmcgr 1 cap PO TID 03/28/20 07/09/21 36,000-114,000-180,000 unit capsule,delay rel (Creon) duloxetine 60 mg capsule,delayed 60 mg PO BID 01/22/21 07/09/21 release hbfuvf-qideuqnv-geisbsj 2 cap PO TIDWM 01/22/21 07/09/21 36,000-114,000-180,000 unit capsule,delay rel (Creon) Allergies Allergy/AdvReac Type Severity Reaction Status Date / Time doxycycline Allergy Unknown Gastrointestinal Verified 12/05/21 15:33 Upset metoclopramide Allergy Unknown Muscle Verified 12/05/21 15:33 Spasms sulfamethoxazole Allergy Unknown Gastrointestinal Verified 12/05/21 15:33 Upset trimethoprim Allergy Unknown Gastrointestinal Verified 12/05/21 15:33 Upset Sulfa (Sulfonamide AdvReac Gastrointestinal Verified 12/05/21 15:33 Antibiotics) Upset Review of Systems Review of Systems: CONSTITUTIONAL: Denies fever, chills, or sweats. CARDIOVASCULAR: Denies chest pain. RESPIRATORY: Denies cough or dyspnea. GASTROINTESTINAL: Reports epigastric abdominal pain, nausea, vomiting. Denies constipation, rectal bleeding, or diarrhea. GENITOURINARY: Denies dysuria or hematuria. All systems reviewed & are unremarkable except as noted in HPI and below PMFSH Past Medical History Medical History Anxiety Chronic pancreatitis Colitis Cyclic vomiting syndrome Cyclical vomiting Depression Gastroenteritis GERD (gastroesophageal reflux disease) Hypertension IBD (inflammatory bowel disease) Kidney stones Pancreatitis Surgical History Surgical History Hx of cholecystectomy Family History Family History Grandparent Acute myocardial infarction Social History Social History Smoking packs per day: 1 Smoking cigarettes per day: 20.0 Years smoked: 20 Smoking pack-years: 20.00 Smoking status: Current every day smoker Tobacco type: cigarettes Alcohol intake: never Substance use: current Substance use type: marijuana Last use: PROBABLY ABOUT A WEEK AGOago Gender identity (if verbalized by the patient): Male Sexual Orientation (if Verbalized by the Patient): Straight or Heterosexual Spiritual care concerns: No Exam Narrative: GENERAL: Mildly ill appearing, well-nourished, non-toxic, in mild acute distress. HEAD: Normocephalic, atraumatic. EYES: PERRL/EOMI, conjunctivae clear bilaterally. THROAT: Pharynx clear, no exudate. MMs dry. NECK: Supple. No adenopathy, no masses. RESPIRATORY: Airway patent, respirations nonlabored. Clear to auscultation bilaterally, no rales, rhonchi, wheezing. CARDIOVASCULAR: Regular rate and rhythm without murmurs, rubs, or gallops. Peripheral pulses 2+ and equal bilaterally. ABDOMINAL: Soft,
[2022-01-20] MEDS: DICYCLOMINE HCL INJ 20 MG/2 ML VIAL IM (19:53)
[2022-01-20] MEDS: SODIUM CHLORIDE 0.9% IV 1,000 ML 999 ML IV CONT (19:53)
[2022-01-20] MEDS: PANTOPRAZOLE SODIUM IV 40 MG VIAL IV PUSH (19:53)
[2022-01-20] MEDS: ONDANSETRON INJ 4 MG/2 ML VIAL IV PUSH (19:53)
[2022-01-20] MEDS: MORPHINE SULFATE (*CRX) 4 MG/ML INJ IV PUSH ×2 (19:53→22:54)
[2022-01-20] MEDS: PROMETHAZINE HCL 25 MG/ML AMPUL 12.5 MG IV PUSH (22:54)
== END 2022-01-20 23:55 | disposition home or self-care (01) ==
PROVIDERS: Emergency Provider Emergency Medicine
DX: R10.13 Epigastric pain (principal); R11.2 Nausea with vomiting, unspecified; F17.210 Nicotine dependence, cigarettes, uncomplicated; F41.9 Anxiety disorder, unspecified; F32.9 Major depressive disorder, single episode, unspecified; K21.9 Gastro-esophageal reflux disease without esophagitis; I10 Essential (primary) hypertension
CPT/HCPCS: 36415; 80053; 83690; 85025; 96361; 96372; 96374; 96375; 96376; 99284; C9113; J0500; J2270; J2405; J2550; J7030

== ENCOUNTER 2022-01-25 19:18 | Emergency (ER) | payer OTHER, SELFPAY ==
[2022-01-25 19:31] VITALS: BP 152/104; PULSE 95; RESP 20; TEMP 37.4; O2SAT 100
--- NOTE | 2022-01-25 20:02 | ED.GENADULT ---
HPI - General Adult General Chief complaint: Abdominal Pain Stated complaint: abd pain, pain in skin Time Seen by Provider: 01/25/22 19:45 History of Present Illness HPI narrative: this is a 41-year-old male who is well known to our emergency department who presents frequently for abdominal pain. Patient says pain woke him up from sleep today. It is diffuse throughout his abdomen but worse around the lower left quadrant. It is 10 out 10 intensity. It is constant. The patient has been having frequent episodes like this for quite some time. He says that is frequently relieved by Pepcid and Dilaudid. Nothing makes it worse. He has had multiple episodes of nausea/vomiting. He denies diarrhea. Last bowel movement was this morning. Patient has appointment with his GI doctor later this week. Related Data Home Medications Medication Instructions Recorded Confirmed [id number]-niqjizik-uqxoaxc 1 cap PO TID 03/28/20 07/09/21 36,000-114,000-180,000 unit capsule,delay rel (Creon) duloxetine 60 mg capsule,delayed 60 mg PO BID 01/22/21 07/09/21 release bfortf-ueszkglh-sztnyvp 2 cap PO TIDWM 01/22/21 07/09/21 36,000-114,000-180,000 unit capsule,delay rel (Creon) Allergies Allergy/AdvReac Type Severity Reaction Status Date / Time doxycycline Allergy Unknown Gastrointestinal Verified 12/05/21 15:33 Upset metoclopramide Allergy Unknown Muscle Verified 12/05/21 15:33 Spasms sulfamethoxazole Allergy Unknown Gastrointestinal Verified 12/05/21 15:33 Upset trimethoprim Allergy Unknown Gastrointestinal Verified 12/05/21 15:33 Upset Sulfa (Sulfonamide AdvReac Gastrointestinal Verified 12/05/21 15:33 Antibiotics) Upset Review of Systems Review of Systems: CONSTITUTIONAL: Denies night sweats. EYES: No eye pain ENT: Denies rhinorrhea CARDIOVASCULAR: Denies palpitations RESPIRATORY: Denies hemoptysis GASTROINTESTINAL: Denies hematemesis GENITOURINARY: Denies hematuria. SKIN: Denies rash MUSCULOSKELETAL: Denies myalgia. NEUROLOGIC: Denies weakness. PSYCHIATRIC: Denies delusions PMFSH Past Medical History Medical History Anxiety Chronic pancreatitis Colitis Cyclic vomiting syndrome Cyclical vomiting Depression Gastroenteritis GERD (gastroesophageal reflux disease) Hypertension IBD (inflammatory bowel disease) Kidney stones Pancreatitis Surgical History Surgical History Hx of cholecystectomy Family History Family History Grandparent Acute myocardial infarction Social History Social History Smoking packs per day: 1 Smoking cigarettes per day: 20.0 Years smoked: 20 Smoking pack-years: 20.00 Smoking status: Current every day smoker Tobacco type: cigarettes Alcohol intake: never Substance use: current Substance use type: marijuana Last use: PROBABLY ABOUT A WEEK AGOago Gender identity (if verbalized by the patient): Male Sexual Orientation (if Verbalized by the Patient): Straight or Heterosexual Spiritual care concerns: No Exam Narrative: APPEARANCE: patient is rolling around in the bed. Head atraumatic. EYES: PERRLA/EOMI, NOSE: Normal no drainage NECK: Supple, Trachea midline RESPIRATORY: CTAB, No increased work of breathing. CARDIOVASCULAR: S1S2 appreciated ABDOMINAL: Abdomen is soft and nondistended. There is no guarding or rebound. The patient reports diffuse tenderness. MUSCULOSKELETAl: No obvious deformities NEURO: Alert. Moving 4/4 extremities SKIN:: Warm, dry. Normal color PSYCHIATRIC: Normal affect Course Vital Signs Vital signs: Vital Signs Temperature 99.4 F 01/25/22 19:31 Pulse Rate 95 01/25/22 19:31 Respiratory Rate 20 01/25/22 19:31 Blood Pressure 152/104 H 01/25/22 19:31 Pulse Oximetry 100
[2022-01-25 20:06] LABS: Basophils Percent Auto 0.2 % (0.2-1.2); Hematocrit 39.9 % (42.0-52.0); Hemoglobin 12.7 g/dL (14.0-18.0); Immature Granulocyte Absolute 0.03 K/mm3 (0.00-0.031); Immature Granulocyte Percent A 0.3 % (0-0.5); Lymphocytes Absolute Auto 1.46 K/mm3 (0.9-3.2); Lymphocytes Percent Auto 13.2 % (18.3-44.2); Mean Corpuscular HGB Conc 31.8 g/dl (32-36); Mean Corpuscular Hemoglobin 25.8 pg (26-34); Mean Corpuscular Volume 81.1 fl (80-100); Mean Platelet Volume 9.3 fl (7.4-10.4); Monocytes Absolute Auto 0.8 K/mm3 (0.1-0.6); Monocytes Percent Auto 7.2 % (2.6-8.5); Neutrophils Absolute Auto 8.8 K/mm3 (1.3-6.7); Neutrophils Percent Auto 79.1 % (45.5-73.1); Platelet Count Result 361 k/mm3 (150-375); Red Blood Count 4.92 M/mm3 (4.6-6.20); Red Cell Distribution Width 18.5 % (11.5-14.5); White Blood Count 11.1 K/mm3 (4.5-10.0)
[2022-01-25 20:16] LABS: Alanine Aminotransferase 26 U/L (6-50); Albumin Level 4.5 g/dL (3.5-5.1); Alkaline Phosphatase 91 U/L (38-126); Anion Gap 11 mmol/L (8-16); Aspartate Amino Transferase 35 U/L (17-59); Bilirubin,Total 0.6 mg/dL (0.2-1.3); Blood Urea Nitrogen 9 mg/dL (9-20); Calcium 9.4 mg/dL (8.4-10.2); Carbon Dioxide 23 mmol/L (22-30); Chloride 106 mmol/L (98-107); Estimated CRCL calculation 110 ml/min; Estimated Glomerular Filt Rate > 60; Glucose 118 mg/dL (65-110); Lipase 255 U/L (23-300); Potassium 4.1 mmol/L (3.4-5.0); Sodium 140 mmol/L (137-145)
[2022-01-25] MEDS: DICYCLOMINE HCL INJ 20 MG/2 ML VIAL IM (20:19)
[2022-01-25] MEDS: FAMOTIDINE 20 MG/2 ML VIAL IV PUSH (20:19)
[2022-01-25] MEDS: ONDANSETRON INJ 4 MG/2 ML VIAL IV PUSH (20:19)
[2022-01-25] MEDS: PROCHLORPERAZINE EDISYLATE 10 MG/2 ML VIAL IV PUSH (20:24)
[2022-01-25] MEDS: diphenhydrAMINE HCl INJ 50 MG/ML VIAL 25 MG IV PUSH (20:24)
[2022-01-25 21:00] VITALS: BP 130/68; PULSE 76; RESP 16; TEMP 36.8; O2SAT 100
[2022-01-25] MEDS: KETOROLAC 15 MG/ML VIAL (*BKC) IV PUSH (21:56)
[2022-01-25 22:00] VITALS: BP 126/74; PULSE 76; RESP 16; TEMP 36.7; O2SAT 99
[2022-01-25 22:15] LABS: Appearance Urine Clear (Clear); Bilirubin Urine Negative (Negative); Blood Urine Negative (Negative); Color Urine Yellow (Yellow); Glucose Urine UA Negative (Negative); Ketones Urine 1+ mg/dL (Negative); Leukocyte Esterase Ur Negative LEU/UL (Negative); Nitrate Urine Negative (Negative); Protein Urine Negative (Negative); Urobilinogen Urine 0.2 mg/dL (<2.0)
[2022-01-25 22:20] LABS: RBC Urine 0-2 /hpf (0-2); WBC Urine 0-3 /hpf
[2022-01-25 22:36] LABS: Add Urine Microscopic? YES
== END 2022-01-25 22:28 | disposition home or self-care (01) ==
PROVIDERS: Emergency Provider Emergency Medicine
DX: R10.13 Epigastric pain (principal); G89.29 Other chronic pain; I10 Essential (primary) hypertension; K58.9 Irritable bowel syndrome, unspecified; K21.9 Gastro-esophageal reflux disease without esophagitis; F41.9 Anxiety disorder, unspecified; F32.A Depression, unspecified; F17.210 Nicotine dependence, cigarettes, uncomplicated; F12.90 Cannabis use, unspecified, uncomplicated
CPT/HCPCS: 36415; 80053; 81001; 83690; 85025; 96365; 96372; 96375; 99284; J0131; J0500; J0780; J1200; J1885; J2405

== ENCOUNTER 2022-01-27 21:24 | Emergency (ER) | payer OTHER, SELFPAY ==
[2022-01-27 22:09] VITALS: BP 146/102; PULSE 110; RESP 18; TEMP 37.1; O2SAT 98
[2022-01-27 22:23] LABS: Basophils Percent Auto 0.4 % (0.2-1.2); Eosinophils Percent Auto 0.3 % (0-4.4); Hematocrit 39.6 % (42.0-52.0); Hemoglobin 12.6 g/dL (14.0-18.0); Immature Granulocyte Absolute 0.04 K/mm3 (0.00-0.031); Immature Granulocyte Percent A 0.4 % (0-0.5); Lymphocytes Absolute Auto 2.01 K/mm3 (0.9-3.2); Lymphocytes Percent Auto 18.2 % (18.3-44.2); Mean Corpuscular HGB Conc 31.8 g/dl (32-36); Mean Corpuscular Hemoglobin 25.8 pg (26-34); Mean Platelet Volume 9.1 fl (7.4-10.4); Monocytes Absolute Auto 1.3 K/mm3 (0.1-0.6); Monocytes Percent Auto 12.1 % (2.6-8.5); Neutrophils Absolute Auto 7.6 K/mm3 (1.3-6.7); Neutrophils Percent Auto 68.6 % (45.5-73.1); Platelet Count Result 357 k/mm3 (150-375); Red Blood Count 4.89 M/mm3 (4.6-6.20); Red Cell Distribution Width 18.5 % (11.5-14.5)
[2022-01-27 22:32] LABS: Alanine Aminotransferase 26 U/L (6-50); Albumin Level 4.7 g/dL (3.5-5.1); Alkaline Phosphatase 88 U/L (38-126); Anion Gap 14 mmol/L (8-16); Aspartate Amino Transferase 30 U/L (17-59); Bilirubin,Total 0.6 mg/dL (0.2-1.3); Blood Urea Nitrogen 7 mg/dL (9-20); Calcium 9.3 mg/dL (8.4-10.2); Carbon Dioxide 25 mmol/L (22-30); Chloride 101 mmol/L (98-107); Estimated Glomerular Filt Rate > 60; Glucose 118 mg/dL (65-110); Lipase 86 U/L (23-300); Potassium 3.8 mmol/L (3.4-5.0); Sodium 140 mmol/L (137-145)
--- NOTE | 2022-01-28 01:39 | ED.ABDPAIN ---
HPI - Abdominal Pain General Chief Complaint: Abdominal Pain Stated Complaint: N/V, and abd pain Time Seen by Provider: 01/28/22 01:30 History of Present Illness HPI narrative: Patient is a 41-year-old male here for evaluation of nausea, vomiting, and abdominal pain for the past day. He is well-known to our facility for these chronic issues. States that this feels very similar to his history. Denies any blood in his vomit, fevers, diarrhea or constipation. He tells me he has follow-up with a GI doctor next week. Related Data Home Medications Medication Instructions Recorded Confirmed [id number]-jvrdgjao-icjomiw 1 cap PO TID 03/28/20 07/09/21 36,000-114,000-180,000 unit capsule,delay rel (Creon) duloxetine 60 mg capsule,delayed 60 mg PO BID 01/22/21 07/09/21 release gkneil-gdqaxhrf-cgtywbg 2 cap PO TIDWM 01/22/21 07/09/21 36,000-114,000-180,000 unit capsule,delay rel (Creon) Allergies Allergy/AdvReac Type Severity Reaction Status Date / Time doxycycline Allergy Unknown Gastrointestinal Verified 12/05/21 15:33 Upset metoclopramide Allergy Unknown Muscle Verified 12/05/21 15:33 Spasms sulfamethoxazole Allergy Unknown Gastrointestinal Verified 12/05/21 15:33 Upset trimethoprim Allergy Unknown Gastrointestinal Verified 12/05/21 15:33 Upset Sulfa (Sulfonamide AdvReac Gastrointestinal Verified 12/05/21 15:33 Antibiotics) Upset Review of Systems Review of Systems: Gen: Denies fevers or chills Eyes: Denies eye pain or visual change ENT: Denies congestion Respiratory: Denies shortness of breath or cough CV: Denies chest pain or palpitations GI: Reports abdominal pain, nausea, vomiting. : denies burning, urgency, frequency or hematuria Musculoskeletal: Denies back pain or muscle pain Neuro: Denies numbness, tingling, weakness or focal weakness Skin: Denies rash Except as documented, all other systems reviewed and negative [facility] Past Medical History Medical History Anxiety Chronic pancreatitis Colitis Cyclic vomiting syndrome Cyclical vomiting Depression Gastroenteritis GERD (gastroesophageal reflux disease) Hypertension IBD (inflammatory bowel disease) Kidney stones Pancreatitis Surgical History Surgical History Hx of cholecystectomy Family History Family History Grandparent Acute myocardial infarction Social History Social History Smoking packs per day: 1 Smoking cigarettes per day: 20.0 Years smoked: 20 Smoking pack-years: 20.00 Smoking status: Current every day smoker Tobacco type: cigarettes Alcohol intake: never Substance use: current Substance use type: marijuana Last use: PROBABLY ABOUT A WEEK AGOago Gender identity (if verbalized by the patient): Male Sexual Orientation (if Verbalized by the Patient): Straight or Heterosexual Spiritual care concerns: No Exam Narrative: APPEARANCE: Well appearing, no pain in distress, well-nourished. Head: Normocephalic and atraumatic. EYES: PERRLA/EOMI, conjunctivae clear NOSE: No nasal drainage EARS: External ear normal in appearance THROAT: Oropharynx is clear. Mucous membranes are moist. NECK: Supple. No adenopathy, no masses. RESPIRATORY: Airway patent, respirations nonlabored. Clear to auscultation bilaterally, no rales, rhonchi, wheezing. CARDIOVASCULAR: Regular rate and rhythm without murmurs, rubs, or gallops. ABDOMINAL: Normoactive bowel sounds. Soft, nontender, nondistended. No rebound tenderness or guarding. MUSCULOSKELETAL: Extremities are warm and well-perfused. Moves all extremities well. No edema. NEURO: Normal speech. No focal neurologic deficits. SKIN: Skin is warm and dry. No rashes. PSYCHIATRIC: Normal affect/mood. Course Vital Signs Vi
[2022-01-28] MEDS: PANTOPRAZOLE SODIUM IV 40 MG VIAL IV PUSH (02:26)
[2022-01-28] MEDS: SODIUM CHLORIDE 0.9% IV 1,000 ML 999 ML IV CONT (02:26)
[2022-01-28] MEDS: KETOROLAC 15 MG/ML VIAL (*BKC) IV PUSH (02:27)
[2022-01-28] MEDS: ONDANSETRON INJ 4 MG/2 ML VIAL IV PUSH (02:27)
[2022-01-28 02:33] VITALS: BP 118/82; PULSE 64; RESP 18; O2SAT 97
[2022-01-28 03:05] LABS: Add Urine Microscopic? YES; Appearance Urine Clear (Clear); Bilirubin Urine Negative (Negative); Blood Urine Negative (Negative); Color Urine Amber (Yellow); Glucose Urine UA Negative (Negative); Ketones Urine Trace mg/dL (Negative); Leukocyte Esterase Ur Negative LEU/UL (Negative); Nitrate Urine Negative (Negative); Protein Urine Negative (Negative); Specific Grav Ur 1.015 (1.001-1.035); Urobilinogen Urine 0.2 mg/dL (<2.0)
[2022-01-28 03:11] LABS: Mucus Urine Rare /lpf; RBC Urine 0-2 /hpf (0-2); Squamous Epithelial Cell Urine Rare /hpf (Few); WBC Urine 0-3 /hpf
--- NOTE | 2022-01-28 03:41 | PC.NURSE ---
Pt requesting pain medication dilaudid for pain control. EDP informed pt they wouldn't be receiving IV narcotics here due to risk of dependence. Pt verbally aggressive toward EDP stating I don't understand why you people won't treat my pain. EDP told pt they were still being discharged as all labs looked reassuring pt ripped out IV getting blood on this RN. Bleeding was controlled at time of discharge.
== END 2022-01-28 03:20 | disposition home or self-care (01) ==
PROVIDERS: Emergency Provider Emergency Medicine; PCP Family Medicine
DX: R11.15 Cyclical vomiting syndrome unrelated to migraine (principal); I10 Essential (primary) hypertension; K86.1 Other chronic pancreatitis; K21.9 Gastro-esophageal reflux disease without esophagitis; K58.9 Irritable bowel syndrome, unspecified; Z87.442 Personal history of urinary calculi; F17.210 Nicotine dependence, cigarettes, uncomplicated
CPT/HCPCS: 36415; 80053; 81001; 83690; 85025; 96361; 96374; 96375; 99284; C9113; J1885; J2405; J7030

== ENCOUNTER 2022-02-03 21:28 | Emergency (ER) | payer OTHER, SELFPAY ==
[2022-02-03 21:36] VITALS: BP 171/99; PULSE 91; RESP 16; TEMP 36.8; O2SAT 99
[2022-02-03 21:56] LABS: Basophils Absolute Auto 0.1 K/mm3 (0.0-0.1); Basophils Percent Auto 0.5 % (0.2-1.2); Eosinophils Absolute Auto 0.3 K/mm3 (0-0.3); Eosinophils Percent Auto 2.5 % (0-4.4); Hematocrit 41.9 % (42.0-52.0); Hemoglobin 13.2 g/dL (14.0-18.0); Immature Granulocyte Absolute 0.03 K/mm3 (0.00-0.031); Immature Granulocyte Percent A 0.3 % (0-0.5); Lymphocytes Absolute Auto 3.71 K/mm3 (0.9-3.2); Lymphocytes Percent Auto 35.4 % (18.3-44.2); Mean Corpuscular HGB Conc 31.5 g/dl (32-36); Mean Corpuscular Hemoglobin 25.9 pg (26-34); Mean Corpuscular Volume 82.3 fl (80-100); Mean Platelet Volume 9.3 fl (7.4-10.4); Monocytes Absolute Auto 1.4 K/mm3 (0.1-0.6); Monocytes Percent Auto 13.3 % (2.6-8.5); Neutrophils Absolute Auto 5.1 K/mm3 (1.3-6.7); Platelet Count Result 422 k/mm3 (150-375); Red Blood Count 5.09 M/mm3 (4.6-6.20); Red Cell Distribution Width 18.2 % (11.5-14.5); White Blood Count 10.5 K/mm3 (4.5-10.0)
[2022-02-03 22:05] LABS: Alanine Aminotransferase 24 U/L (6-50); Albumin Level 4.7 g/dL (3.5-5.1); Alkaline Phosphatase 91 U/L (38-126); Anion Gap 11 mmol/L (8-16); Aspartate Amino Transferase 25 U/L (17-59); Bilirubin,Total 0.4 mg/dL (0.2-1.3); Blood Urea Nitrogen 10 mg/dL (9-20); Calcium 9.5 mg/dL (8.4-10.2); Carbon Dioxide 24 mmol/L (22-30); Chloride 104 mmol/L (98-107); Estimated CRCL calculation 99 ml/min; Estimated Glomerular Filt Rate > 60; Glucose 99 mg/dL (65-110); Lipase 325 U/L (23-300); Sodium 139 mmol/L (137-145)
--- NOTE | 2022-02-04 01:03 | ED.ABDPAIN ---
HPI - Abdominal Pain General Chief Complaint: Abdominal Pain <JORDI Boyce Last Filed: 02/04/22 02:39> Stated Complaint: abd pain, N/V <JORDI Boyce Last Filed: 02/04/22 02:39> Time Seen by Provider: 02/04/22 00:46 <JORDI Boyce Last Filed: 02/04/22 02:39> Source: patient and old records reviewed <JORDI Boyce Last Filed: 02/04/22 02:39> Mode of arrival: ambulatory <JORDI Boyce Last Filed: 02/04/22 02:39> Limitations: no limitations <JORDI Boyce Last Filed: 02/04/22 02:39> History of Present Illness HPI narrative: Patient is a 41-year-old male with a past medical history of chronic abdominal pain, pancreatitis, sphincter of Oddi dysfunction, who presents to the ED with report of epigastric abdominal pain. Patient reports he woke up feeling fine this morning, but developed pain and diarrhea this afternoon. He tried eating a bland diet and taking his home Zofran and omeprazole, but then developed nausea and vomiting. States emesis consisted of yellow fluid. No blood. Last emesis around 1 hour ago. Patient states the pain does feel similar to his chronic pain. No recent fevers, cough, cold symptoms, blood in stool. Patient scheduled to see his GI specialist in a week and a half. <JORDI Boyce Last Filed: 02/04/22 02:39> Related Data Home Medications: Home Medications Medication Instructions Recorded Confirmed [id number]-wfviuwyq-pifoqom 1 cap PO TID 03/28/20 07/09/21 36,000-114,000-180,000 unit capsule,delay rel (Creon) duloxetine 60 mg capsule,delayed 60 mg PO BID 01/22/21 07/09/21 release ccyodx-dcqhrghr-sjzkrwi 2 cap PO TIDWM 01/22/21 07/09/21 36,000-114,000-180,000 unit capsule,delay rel (Creon) <Cary Marrero PA-C - Last Filed: 02/04/22 02:39> Allergies/Adverse Reactions: Allergies Allergy/AdvReac Type Severity Reaction Status Date / Time doxycycline Allergy Unknown Gastrointestinal Verified 02/04/22 00:52 Upset metoclopramide Allergy Unknown Muscle Verified 02/04/22 00:52 Spasms sulfamethoxazole Allergy Unknown Gastrointestinal Verified 02/04/22 00:52 Upset trimethoprim Allergy Unknown Gastrointestinal Verified 02/04/22 00:52 Upset Sulfa (Sulfonamide AdvReac Gastrointestinal Verified 02/04/22 00:52 Antibiotics) Upset <Cary Marrero PA-C - Last Filed: 02/04/22 02:39> Review of Systems Review of Systems: CONSTITUTIONAL: Denies fever, chills, or sweats. ENT: Denies rhinorrhea, congestion, sore throat. CARDIOVASCULAR: Denies chest pain. RESPIRATORY: Denies cough or dyspnea. GASTROINTESTINAL: Reports abdominal pain, nausea, vomiting, and diarrhea. Denies hematemesis, rectal bleeding. <Cary Marrero PA-C - Last Filed: 02/04/22 02:39> All systems reviewed & are unremarkable except as noted in HPI and below <Cary Marrero PA-C - Last Filed: 02/04/22 02:39> [facility], [facility] Past Medical History Medical History: Medical History Anxiety Chronic pancreatitis Colitis Cyclic vomiting syndrome Cyclical vomiting Depression Gastroenteritis GERD (gastroesophageal reflux disease) Hypertension IBD (inflammatory bowel disease) Kidney stones Pancreatitis <Cary Marrero PA-C - Last Filed: 02/04/22 02:39> Surgical History Surgical History: Surgical History Hx of cholecystectomy <Cary Marrero PA-C - Last Filed: 02/04/22 02:39> Family History Family History: Family History Grandparent Acute myocardial infarction <Cary Marrero PA-C - Last Filed: 02/04/22 02:39> Social History Social History: Social History Smoking
[2022-02-04 01:09] VITALS: O2SAT 99
[2022-02-04] MEDS: SODIUM CHLORIDE 0.9% IV 1,000 ML 999 ML IV CONT (01:09)
[2022-02-04] MEDS: ONDANSETRON INJ 4 MG/2 ML VIAL IV PUSH (01:10)
[2022-02-04] MEDS: KETOROLAC 30 MG/ML VIAL (*BKC) IV PUSH (01:12)
[2022-02-04] MEDS: PANTOPRAZOLE SODIUM IV 40 MG VIAL IV PUSH (01:13)
[2022-02-04 01:17] VITALS: O2SAT 98
[2022-02-04 01:30] VITALS: O2SAT 98
[2022-02-04 01:31] VITALS: BP 98/63; O2SAT 100
[2022-02-04 01:32] VITALS: BP 107/73; PULSE 78; RESP 16; O2SAT 99
== END 2022-02-04 02:32 | disposition home or self-care (01) ==
PROVIDERS: Emergency Provider Emergency Medicine; PCP Family Medicine
DX: R10.13 Epigastric pain (principal); G89.29 Other chronic pain; R11.15 Cyclical vomiting syndrome unrelated to migraine; K86.1 Other chronic pancreatitis; I10 Essential (primary) hypertension; K21.9 Gastro-esophageal reflux disease without esophagitis; K58.9 Irritable bowel syndrome, unspecified; Z87.442 Personal history of urinary calculi; F17.210 Nicotine dependence, cigarettes, uncomplicated
CPT/HCPCS: 36415; 80053; 83690; 85025; 96365; 96375; 99284; C9113; J0131; J1885; J2405; J7030

== ENCOUNTER 2022-02-25 20:08 | Emergency (ER) | payer OTHER, SELFPAY ==
[2022-02-25] VITALS (16 sets, daily range): BP systolic 124–180; BP diastolic 83–117; PULSE 108; RESP 20; TEMP 36.1; O2SAT 93–100
--- NOTE | ~2022-02-25 | CT_ITS ---
EXAMINATION: CT abdomen pelvis w con DATE: 02/25/2022 21:27 INDICATION: epigastric LUQ ABD pain TECHNIQUE: Computed tomography (CT) of the abdomen and pelvis was performed with 100 mL Omnipaque-350 intravenous contrast. Automated exposure control and iterative reconstruction technique were employe d. The dose-length product was 387.03 mGy-cm. COMPARISON: 11/22/2021. FINDINGS: Lower thorax: Minimal dependent atelectasis Liver: Pneumobilia. Otherwise normal. Biliary/Gallbladder: Gallbladder is absent. Pneumobilia. No bile duct dilation. Pancreas: No mass or duct dilation. Spleen: Normal. Adrenals:No mass. Kidneys: Subcentimeter right upper pole hypodensity, too small to characterize. No hydronephrosis, ob structing calcification, or suspicious mass. GI tract: Mild distal esophageal and antral wall edema No small or large bowel dilation. Normal appen santos. Mild diverticulosis without diverticulitis. Mesentery/Peritoneum: No ascites, mass, or free air. Retroperitoneum: No mass. Mild atherosclerotic abdominal aortic and/or arterial calcifications. Pelvis: Pelvic organs are within normal limits. Soft Tissues: Soft tissues and body wall unremarkable. Bones: No acute osseous finding. IMPRESSION: Esophagitis/gastritis. No other acute abdominopelvic process detected. Reviewed, dictated and finalized at location K.
[2022-02-25 20:39] LABS: Basophils Absolute Auto 0.1 K/mm3 (0.0-0.1); Basophils Percent Auto 0.6 % (0.2-1.2); Eosinophils Absolute Auto 0.3 K/mm3 (0-0.3); Eosinophils Percent Auto 2.1 % (0-4.4); Hematocrit 39.9 % (42.0-52.0); Hemoglobin 12.6 g/dL (14.0-18.0); Immature Granulocyte Absolute 0.05 K/mm3 (0.00-0.031); Immature Granulocyte Percent A 0.4 % (0-0.5); Lymphocytes Absolute Auto 3.43 K/mm3 (0.9-3.2); Lymphocytes Percent Auto 28.2 % (18.3-44.2); Mean Corpuscular HGB Conc 31.6 g/dl (32-36); Mean Corpuscular Volume 82.3 fl (80-100); Mean Platelet Volume 9.1 fl (7.4-10.4); Monocytes Absolute Auto 1.1 K/mm3 (0.1-0.6); Monocytes Percent Auto 9.4 % (2.6-8.5); Neutrophils Absolute Auto 7.2 K/mm3 (1.3-6.7); Neutrophils Percent Auto 59.3 % (45.5-73.1); Platelet Count Result 405 k/mm3 (150-375); Red Blood Count 4.85 M/mm3 (4.6-6.20); White Blood Count 12.2 K/mm3 (4.5-10.0)
[2022-02-25] MEDS: ONDANSETRON INJ 4 MG/2 ML VIAL IV PUSH (20:55)
[2022-02-25] MEDS: SODIUM CHLORIDE 0.9% IV 1,000 ML 999 ML IV CONT (20:55)
[2022-02-25] MEDS: HYDROmorphone HCL INJ (*CRX) 1 MG/ML SYR IV PUSH (20:56)
--- NOTE | 2022-02-25 21:06 | ED.ABDPAIN ---
HPI - Abdominal Pain General Chief Complaint: Abdominal Pain Stated Complaint: ABD pain, N/V Time Seen by Provider: 02/25/22 20:39 Source: patient Mode of arrival: ambulatory Limitations: no limitations History of Present Illness HPI narrative: Presents c/o epigastric ABD pain with radiation into LUQ ABD that started after eating a salad this afternoon. Pain continues to increase since onset. Hx Pancreatitis with similar sx 2-3 weeks ago. States Pancreatitis due to sphincter of chandana dysfunction. Denies fever or other sx at this time. Related Data Home Medications Medication Instructions Recorded Confirmed [id number]-ahwzshmt-ujesnft 1 cap PO TID 03/28/20 07/09/21 36,000-114,000-180,000 unit capsule,delay rel (Creon) duloxetine 60 mg capsule,delayed 60 mg PO BID 01/22/21 07/09/21 release gxyebb-ytdutyzo-qnjeepk 2 cap PO TIDWM 01/22/21 07/09/21 36,000-114,000-180,000 unit capsule,delay rel (Creon) Allergies Allergy/AdvReac Type Severity Reaction Status Date / Time doxycycline Allergy Unknown Gastrointestinal Verified 02/04/22 00:52 Upset metoclopramide Allergy Unknown Muscle Verified 02/04/22 00:52 Spasms sulfamethoxazole Allergy Unknown Gastrointestinal Verified 02/04/22 00:52 Upset trimethoprim Allergy Unknown Gastrointestinal Verified 02/04/22 00:52 Upset haloperidol [From Haldol] AdvReac Mild Muscle Verified 02/25/22 20:09 Spasms Sulfa (Sulfonamide AdvReac Gastrointestinal Verified 02/04/22 00:52 Antibiotics) Upset Review of Systems Review of Systems: CONSTITUTIONAL: Denies fever, chills, or sweats. EYES: Denies visual changes, redness, or discharge. ENT: Denies rhinorrhea, congestion, sore throat, or otalgia. CARDIOVASCULAR: Denies chest pain, palpitations, or edema. RESPIRATORY: Denies cough or dyspnea. GASTROINTESTINAL: Epigastric abdominal pain with radiation into the left upper quadrant. Nausea present GENITOURINARY: Denies dysuria or hematuria. SKIN: Denies rash or itching. MUSCULOSKELETAL: Denies back pain, joint pain, or myalgia. NEUROLOGIC: Denies headache, numbness, or weakness. PSYCHIATRIC: Denies anxiety or depression. [facility] Past Medical History Medical History Anxiety Chronic pancreatitis Colitis Cyclic vomiting syndrome Cyclical vomiting Depression Gastroenteritis GERD (gastroesophageal reflux disease) Hypertension IBD (inflammatory bowel disease) Kidney stones Pancreatitis Surgical History Surgical History Hx of cholecystectomy Family History Family History Grandparent Acute myocardial infarction Social History Social History Smoking packs per day: 1 Smoking cigarettes per day: 20.0 Years smoked: 20 Smoking pack-years: 20.00 Smoking status: Current every day smoker Tobacco type: cigarettes Alcohol intake: never Substance use: current Substance use type: marijuana Last use: PROBABLY ABOUT A WEEK AGOago Gender identity (if verbalized by the patient): Male Sexual Orientation (if Verbalized by the Patient): Straight or Heterosexual Spiritual care concerns: No Exam Narrative: GENERAL: Appears in severe pain. Knees drawn up to ABD. HEAD: Normocephalic, atraumatic. EYES: PERRLA and EOMI. ENT: Nares clear, no rhinorrhea or epistaxis. Mucous membranes moist. NECK: Supple. CHEST: Clear to auscultation. No respiratory distress. HEART: Regular rate and rhythm. No murmur heard. Normal peripheral pulses. ABDOMEN: Tender to palpation epigastric area with mild tenderness to the left upper quadrant. Guarding with palpation. EXTREMITIES: Normal range of motion. No edema. SKIN: Warm, dry, no rash. NEURO: No focal deficits. Alert and oriented x3. PSYCH: Normal mood and affect.
[2022-02-25 21:11] LABS: Alanine Aminotransferase 28 U/L (6-50); Albumin Level 4.8 g/dL (3.5-5.1); Alkaline Phosphatase 77 U/L (38-126); Anion Gap 15 mmol/L (8-16); Aspartate Amino Transferase 45 U/L (17-59); Bilirubin,Total 0.4 mg/dL (0.2-1.3); Blood Urea Nitrogen 10 mg/dL (9-20); Calcium 9.3 mg/dL (8.4-10.2); Carbon Dioxide 24 mmol/L (22-30); Chloride 99 mmol/L (98-107); Estimated CRCL calculation 99 ml/min; Estimated Glomerular Filt Rate > 60; Glucose 113 mg/dL (65-110); Lipase 303 U/L (23-300); Potassium 4.5 mmol/L (3.4-5.0); Sodium 138 mmol/L (137-145)
[2022-02-25] MEDS: BELLADONNA ALK/PHENOB ELIX 10 ML, MAG HYDROX/ALUMINUM HYD/SIMETH 30 ML, LIDOCAINE HCL 2... PO (22:22)
== END 2022-02-25 22:55 | disposition home or self-care (01) ==
PROVIDERS: Emergency Medicine; Emergency Provider Nurse Practitioner; PCP Family Medicine
DX: K20.90 Esophagitis, unspecified without bleeding (principal); K86.1 Other chronic pancreatitis; K21.9 Gastro-esophageal reflux disease without esophagitis; I10 Essential (primary) hypertension; K58.9 Irritable bowel syndrome, unspecified; Z87.442 Personal history of urinary calculi; F17.210 Nicotine dependence, cigarettes, uncomplicated
CPT/HCPCS: 36415; 74177; 80053; 83690; 85025; 96361; 96374; 96375; 99284; A9270; J1170; J2405; J7030; Q9967

== ENCOUNTER 2022-05-21 19:14 | Emergency (ER) | payer OTHER, SELFPAY ==
[2022-05-21 19:18] VITALS: BP 155/120; PULSE 81; RESP 20; TEMP 37; O2SAT 100
[2022-05-21 20:09] LABS: Basophils Absolute Auto 0.1 K/mm3 (0.0-0.1); Basophils Percent Auto 0.4 % (0.2-1.2); Eosinophils Absolute Auto 0.1 K/mm3 (0-0.3); Eosinophils Percent Auto 0.4 % (0-4.4); Hematocrit 42.8 % (42.0-52.0); Hemoglobin 13.1 g/dL (14.0-18.0); Immature Granulocyte Absolute 0.07 K/mm3 (0.00-0.031); Immature Granulocyte Percent A 0.4 % (0-0.5); Lymphocytes Absolute Auto 1.07 K/mm3 (0.9-3.2); Lymphocytes Percent Auto 6.7 % (18.3-44.2); Mean Corpuscular HGB Conc 30.6 g/dl (32-36); Mean Corpuscular Hemoglobin 25.3 pg (26-34); Mean Corpuscular Volume 82.6 fl (80-100); Mean Platelet Volume 9.6 fl (7.4-10.4); Monocytes Absolute Auto 1.1 K/mm3 (0.1-0.6); Monocytes Percent Auto 6.7 % (2.6-8.5); Neutrophils Absolute Auto 13.6 K/mm3 (1.3-6.7); Neutrophils Percent Auto 85.4 % (45.5-73.1); Platelet Count Result 373 k/mm3 (150-375); Red Blood Count 5.18 M/mm3 (4.6-6.20); White Blood Count 15.9 K/mm3 (4.5-10.0)
[2022-05-21 20:19] LABS: Alanine Aminotransferase 22 U/L (6-50); Albumin Level 4.6 g/dL (3.5-5.1); Alkaline Phosphatase 102 U/L (38-126); Anion Gap 10 mmol/L (8-16); Aspartate Amino Transferase 24 U/L (17-59); Bilirubin,Total 0.5 mg/dL (0.2-1.3); Blood Urea Nitrogen 9 mg/dL (9-20); Calcium 9.1 mg/dL (8.4-10.2); Carbon Dioxide 26 mmol/L (22-30); Chloride 102 mmol/L (98-107); Estimated CRCL calculation 99 ml/min; Estimated Glomerular Filt Rate > 60; Glucose 121 mg/dL (65-110); Lipase 196 U/L (23-300); Potassium 3.6 mmol/L (3.4-5.0); Sodium 138 mmol/L (137-145)
[2022-05-21 21:39] LABS: Appearance Urine Cloudy (Clear); Bilirubin Urine Negative (Negative); Blood Urine Negative (Negative); Color Urine Yellow (Yellow); Glucose Urine UA Negative (Negative); Ketones Urine 1+ mg/dL (Negative); Leukocyte Esterase Ur Negative LEU/UL (Negative); Nitrate Urine Negative (Negative); Protein Urine 1+ mg/dL (Negative); Specific Grav Ur 1.015 (1.001-1.035); Urobilinogen Urine 0.2 mg/dL (<2.0); pH Urine 8.5 (5.0-9.0)
[2022-05-21 21:50] LABS: Amorphous Sediment Urine Few; Bacteria Urine 4+ /hpf; Mucus Urine Few /lpf; WBC Urine 0-3 /hpf
[2022-05-21 21:52] LABS: Add Urine Microscopic? YES
[2022-05-21] MEDS: FAMOTIDINE 20 MG/2 ML VIAL IV PUSH (22:19)
[2022-05-21] MEDS: LACTATED RINGERS 1,000 ML 999 ML IV CONT (22:19)
[2022-05-21] MEDS: PROCHLORPERAZINE EDISYLATE 10 MG/2 ML VIAL IV PUSH (22:19)
[2022-05-21] MEDS: KETAMINE HCL (*CRX) 500 MG/10 ML VIAL 24 MG IV PUSH (22:31)
[2022-05-21 23:34] VITALS: BP 108/74; PULSE 88; RESP 20; O2SAT 99
--- NOTE | 2022-05-22 01:21 | ED.NAVMDI ---
HPI - Nausea/Vomiting/Diarrhea General Chief complaint: Nausea/Vomiting/Diarrhea Stated complaint: abdominal pain/vomiting Time Seen by Provider: 05/21/22 21:28 History of Present Illness HPI Narrative: This 41-year-old male with history of chronic vomiting syndrome presents stating that he is having vomiting again, he states that he tried taking Zofran and Protonix at home but cannot keep them down. Feels like his usual episodes. Denies any other symptoms such as dysuria. No fevers or chills Related Data Home Medications Medication Instructions Recorded Confirmed gsrtuw-qlzrhprr-bxccskf 1 cap PO TID 03/28/20 07/09/21 36,000-114,000-180,000 unit capsule,delay rel (Creon) duloxetine 60 mg capsule,delayed 60 mg PO BID 01/22/21 07/09/21 release tfrrct-jrpdzcbl-cmbycmj 2 cap PO TIDWM 01/22/21 07/09/21 36,000-114,000-180,000 unit capsule,delay rel (Creon) Allergies Allergy/AdvReac Type Severity Reaction Status Date / Time doxycycline Allergy Unknown Gastrointestinal Verified 05/21/22 21:33 Upset metoclopramide Allergy Unknown Muscle Verified 05/21/22 21:33 Spasms sulfamethoxazole Allergy Unknown Gastrointestinal Verified 05/21/22 21:33 Upset trimethoprim Allergy Unknown Gastrointestinal Verified 05/21/22 21:33 Upset haloperidol [From Haldol] AdvReac Mild Muscle Verified 05/21/22 21:33 Spasms Sulfa (Sulfonamide AdvReac Gastrointestinal Verified 05/21/22 21:33 Antibiotics) Upset Review of Systems Review of Systems: CONST: No fever. HEENT: No sore throat C/V: No chest pain RESP: No cough GI: Reports abdominal pain, nausea, vomiting : No dysuria. M/S: No joint pain. SKIN: No rash. NEURO: [No headache or focal numbness or weakness] PSYCH: [No depression] PMFSH Past Medical History Medical History Anxiety Chronic pancreatitis Colitis Cyclic vomiting syndrome Cyclical vomiting Depression Gastroenteritis GERD (gastroesophageal reflux disease) Hypertension IBD (inflammatory bowel disease) Kidney stones Pancreatitis Surgical History Surgical History Hx of cholecystectomy Family History Family History Grandparent Acute myocardial infarction Social History Social History Smoking packs per day: 1 Smoking cigarettes per day: 20.0 Years smoked: 20 Smoking pack-years: 20.00 Smoking status: Current every day smoker Tobacco type: cigarettes Alcohol intake: never Substance use: current Substance use type: marijuana Last use: PROBABLY ABOUT A WEEK AGOago Gender identity (if verbalized by the patient): Male Sexual Orientation (if Verbalized by the Patient): Straight or Heterosexual Spiritual care concerns: No Exam Narrative: EXAMINATION OF ORGAN SYSTEMS/BODY AREAS: Constitutional: Vital signs per nursing GENERAL:[No acute distress, non-toxic appearing.] HEAD: Normal with no signs of head trauma. EYES: EOMI, conjunctiva normal ENT: Hearing grossly intact LUNGS: Nonlabored breathing. HEART: [Regular rate and rhythm] ABD: [Soft], [nontender to palpation] EXT: Normal range of motion SKIN: [No rashes or lesions.] NEURO: [Alert and oriented x 3. No gross focal sensory or strength deficits.] PSYCH: Normal affect Course Vital Signs Vital signs: Vital Signs Temperature 98.6 F 05/21/22 19:18 Pulse Rate 81 05/21/22 19:18 Respiratory Rate 20 05/21/22 19:18 Blood Pressure 155/120 H 05/21/22 19:18 Pulse Oximetry 100 05/21/22 19:18 Oxygen Delivery Room Air 05/21/22 19:18 Temperature 98.6 F 05/21/22 19:18 Pulse Rate 88 05/21/22 23:34 Respiratory Rate 20 05/21/22 23:34 Blood Pressure 108/74 05/21/22 23:34 Pulse Oximetry 99 05/21/22 23:34 Oxygen Delivery Room Air 05/21/22 19:18 MDM - Naus
== END 2022-05-21 23:38 | disposition home or self-care (01) ==
PROVIDERS: Emergency Provider Emergency Medicine; PCP Family Medicine
DX: R11.15 Cyclical vomiting syndrome unrelated to migraine (principal); R10.9 Unspecified abdominal pain; K86.1 Other chronic pancreatitis; I10 Essential (primary) hypertension; K58.9 Irritable bowel syndrome, unspecified; K21.9 Gastro-esophageal reflux disease without esophagitis; F17.210 Nicotine dependence, cigarettes, uncomplicated; Z87.442 Personal history of urinary calculi
CPT/HCPCS: 36415; 80053; 81001; 83690; 85025; 96361; 96374; 96375; 99284; J0780; J7120

== ENCOUNTER 2022-06-11 18:21 | Emergency (ER) | payer OTHER, SELFPAY ==
[2022-06-11] VITALS (19 sets, daily range): BP systolic 106–159; BP diastolic 62–92; PULSE 71–106; RESP 9–21; TEMP 36.6; O2SAT 96–99
--- NOTE | 2022-06-11 20:25 | ED.ABDPAIN ---
HPI - Abdominal Pain General Chief Complaint: Abdominal Pain Stated Complaint: abd pain/vomiting Time Seen by Provider: 06/11/22 20:12 Source: patient, RN notes reviewed and old records reviewed Mode of arrival: ambulatory Limitations: no limitations History of Present Illness HPI narrative: This is a 42 year old male with history of chronic pancreatitis who presents for evaluation of abdominal pain with nausea and vomiting. He states yesterday he had chicken fettuccine and he developed epigastric immediately afterward. He states he gets similar episodes. He has been having nausea and vomiting. He states his pain is intermittent and when it occurs he is having nonbloody emesis. He has been taking Zofran and Creon at home. His last dose of Zofran was just prior to arrival. This is similar to previous abdominal pain. Related Data Home Medications Medication Instructions Recorded Confirmed vsolwi-pniniybr-zisixqn 1 cap PO TID 03/28/20 07/09/21 36,000-114,000-180,000 unit capsule,delay rel (Creon) duloxetine 60 mg capsule,delayed 60 mg PO BID 01/22/21 07/09/21 release rcrgbi-erjsufzk-yjzotay 2 cap PO TIDWM 01/22/21 07/09/21 36,000-114,000-180,000 unit capsule,delay rel (Creon) Allergies Allergy/AdvReac Type Severity Reaction Status Date / Time doxycycline Allergy Unknown Gastrointestinal Verified 06/11/22 20:13 Upset metoclopramide Allergy Unknown Muscle Verified 06/11/22 20:13 Spasms sulfamethoxazole Allergy Unknown Gastrointestinal Verified 06/11/22 20:13 Upset trimethoprim Allergy Unknown Gastrointestinal Verified 06/11/22 20:13 Upset haloperidol [From Haldol] AdvReac Mild Muscle Verified 06/11/22 20:13 Spasms Sulfa (Sulfonamide AdvReac Gastrointestinal Verified 06/11/22 20:13 Antibiotics) Upset Review of Systems Constitutional: Constitutional: Denies weakness Cardiovascular: Cardiovascular: Denies syncope, Denies rapid heart rate, Denies irregular heart rhythm, Denies leg edema and Denies dyspnea Respiratory: Respiratory: Denies chest congestion, Denies hemoptysis, Denies excessive phlegm production and Denies dyspnea Gastrointestinal: Gastrointestinal: Reports abdominal pain, Denies hematochezia, Denies diarrhea, Reports nausea and Reports vomiting Genitourinary: Genitourinary: Denies hematuria, Denies dysuria, Denies penile discharge and Denies testicular pain Musculoskeletal: Musculoskeletal: Denies joint swelling, Denies loss of height and Denies muscle weakness Neurologic: Denies syncope, Denies focal weakness and Denies weakness PMFSH Past Medical History Medical History Anxiety Chronic pancreatitis Colitis Cyclic vomiting syndrome Cyclical vomiting Depression Gastroenteritis GERD (gastroesophageal reflux disease) Hypertension IBD (inflammatory bowel disease) Kidney stones Pancreatitis Surgical History Surgical History Hx of cholecystectomy Family History Family History Grandparent Acute myocardial infarction Social History Social History Smoking packs per day: 1 Smoking cigarettes per day: 20.0 Years smoked: 20 Smoking pack-years: 20.00 Smoking status: Current every day smoker Tobacco type: cigarettes Alcohol intake: never Substance use: current Substance use type: marijuana Last use: PROBABLY ABOUT A WEEK AGOago Living arrangements: alone Gender identity (if verbalized by the patient): Male Sexual Orientation (if Verbalized by the Patient): Straight or Heterosexual Spiritual care concerns: No Exam Const: General: no acute distress and alert Nutritional Appearance: well nourished Orientation/consciousness: patient oriented x3 Limitations: no limitations HENMT: Head: normal to inspection
[2022-06-11] MEDS: SODIUM CHLORIDE 0.9% IV 1,000 ML 999 ML IV CONT (20:26)
[2022-06-11 20:27] LABS: Basophils Percent Auto 0.2 % (0.2-1.2); Hematocrit 37.5 % (42.0-52.0); Hemoglobin 11.9 g/dL (14.0-18.0); Immature Granulocyte Absolute 0.03 K/mm3 (0.00-0.031); Immature Granulocyte Percent A 0.3 % (0-0.5); Lymphocytes Absolute Auto 1.23 K/mm3 (0.9-3.2); Lymphocytes Percent Auto 14.1 % (18.3-44.2); Mean Corpuscular HGB Conc 31.7 g/dl (32-36); Mean Corpuscular Hemoglobin 25.7 pg (26-34); Mean Platelet Volume 9.5 fl (7.4-10.4); Monocytes Absolute Auto 0.9 K/mm3 (0.1-0.6); Monocytes Percent Auto 10.1 % (2.6-8.5); Neutrophils Absolute Auto 6.6 K/mm3 (1.3-6.7); Neutrophils Percent Auto 75.3 % (45.5-73.1); Platelet Count Result 297 k/mm3 (150-375); Red Blood Count 4.63 M/mm3 (4.6-6.20); Red Cell Distribution Width 16.7 % (11.5-14.5); White Blood Count 8.7 K/mm3 (4.5-10.0)
[2022-06-11] MEDS: ONDANSETRON INJ 4 MG/2 ML VIAL IV PUSH (20:27)
[2022-06-11] MEDS: PANTOPRAZOLE SODIUM IV 40 MG VIAL IV PUSH (20:28)
[2022-06-11] MEDS: KETOROLAC 30 MG/ML VIAL (*BKC) IV PUSH (20:30)
[2022-06-11] MEDS: PROCHLORPERAZINE EDISYLATE 10 MG/2 ML VIAL IV PUSH (20:30)
[2022-06-11 20:38] LABS: Alanine Aminotransferase 20 U/L (6-50); Albumin Level 4.2 g/dL (3.5-5.1); Alkaline Phosphatase 90 U/L (38-126); Anion Gap 10 mmol/L (8-16); Aspartate Amino Transferase 24 U/L (17-59); Bilirubin,Total 0.8 mg/dL (0.2-1.3); Blood Urea Nitrogen 9 mg/dL (9-20); Carbon Dioxide 24 mmol/L (22-30); Chloride 107 mmol/L (98-107); Estimated CRCL calculation 98 ml/min; Estimated Glomerular Filt Rate > 60; Glucose 100 mg/dL (65-110); Lipase 126 U/L (23-300); Potassium 4.1 mmol/L (3.4-5.0); Sodium 141 mmol/L (137-145)
[2022-06-11 21:24] LABS: SARS-CoV-2 RNA PCR Negative
[2022-06-11 22:10] LABS: Appearance Urine Clear (Clear); Bilirubin Urine Negative (Negative); Blood Urine Negative (Negative); Color Urine Yellow (Yellow); Glucose Urine UA Negative (Negative); Ketones Urine 3+ mg/dL (Negative); Leukocyte Esterase Ur Negative LEU/UL (Negative); Nitrate Urine Negative (Negative); Protein Urine 2+ mg/dL (Negative); Urobilinogen Urine 0.2 mg/dL (<2.0)
[2022-06-11 22:15] LABS: Mucus Urine Moderate /lpf; RBC Urine 0-2 /hpf (0-2); Squamous Epithelial Cell Urine Rare /hpf (Few); WBC Urine 0-3 /hpf
[2022-06-11 22:16] LABS: Add Urine Microscopic? YES
== END 2022-06-11 22:58 | disposition home or self-care (01) ==
PROVIDERS: Physician Assistant; Emergency Provider General Practice; PCP Family Medicine
DX: R11.2 Nausea with vomiting, unspecified (principal); Z20.822 Contact with and (suspected) exposure to COVID-19; F41.9 Anxiety disorder, unspecified; K21.9 Gastro-esophageal reflux disease without esophagitis; I10 Essential (primary) hypertension; Z87.442 Personal history of urinary calculi
CPT/HCPCS: 36415; 80053; 81001; 83690; 85025; 96361; 96374; 96375; 99284; C9113; J0780; J1885; J2405; J7030; U0003; U0005

== ENCOUNTER 2022-06-24 01:09 | Emergency (ER) | payer OTHER, SELFPAY ==
[2022-06-24 01:11] VITALS: BP 165/87; PULSE 101; RESP 20; TEMP 36.8; O2SAT 99
[2022-06-24 01:25] LABS: Basophils Absolute Auto 0.1 K/mm3 (0.0-0.1); Basophils Percent Auto 0.4 % (0.2-1.2); Eosinophils Absolute Auto 0.1 K/mm3 (0-0.3); Eosinophils Percent Auto 0.7 % (0-4.4); Hematocrit 39.7 % (42.0-52.0); Hemoglobin 12.6 g/dL (14.0-18.0); Immature Granulocyte Absolute 0.04 K/mm3 (0.00-0.031); Immature Granulocyte Percent A 0.3 % (0-0.5); Lymphocytes Absolute Auto 4.39 K/mm3 (0.9-3.2); Lymphocytes Percent Auto 35.3 % (18.3-44.2); Mean Corpuscular HGB Conc 31.7 g/dl (32-36); Mean Corpuscular Hemoglobin 25.6 pg (26-34); Mean Corpuscular Volume 80.7 fl (80-100); Mean Platelet Volume 9.3 fl (7.4-10.4); Monocytes Absolute Auto 1.6 K/mm3 (0.1-0.6); Monocytes Percent Auto 12.8 % (2.6-8.5); Neutrophils Absolute Auto 6.3 K/mm3 (1.3-6.7); Neutrophils Percent Auto 50.5 % (45.5-73.1); Platelet Count Result 394 k/mm3 (150-375); Red Blood Count 4.92 M/mm3 (4.6-6.20); Red Cell Distribution Width 17.5 % (11.5-14.5); White Blood Count 12.4 K/mm3 (4.5-10.0)
[2022-06-24 01:34] LABS: Alanine Aminotransferase 27 U/L (6-50); Albumin Level 4.8 g/dL (3.5-5.1); Alkaline Phosphatase 92 U/L (38-126); Anion Gap 11 mmol/L (8-16); Aspartate Amino Transferase 26 U/L (17-59); Bilirubin,Total 0.7 mg/dL (0.2-1.3); Blood Urea Nitrogen 5 mg/dL (9-20); Calcium 9.1 mg/dL (8.4-10.2); Carbon Dioxide 25 mmol/L (22-30); Chloride 101 mmol/L (98-107); Estimated CRCL calculation 98 ml/min; Estimated Glomerular Filt Rate > 60; Glucose 90 mg/dL (65-110); Lipase 61 U/L (23-300); Potassium 3.5 mmol/L (3.4-5.0); Sodium 137 mmol/L (137-145)
[2022-06-24 04:06] LABS: Appearance Urine Clear (Clear); Bilirubin Urine Negative (Negative); Blood Urine Negative (Negative); Color Urine Yellow (Yellow); Glucose Urine UA Negative (Negative); Ketones Urine Negative (Negative); Leukocyte Esterase Ur Negative LEU/UL (Negative); Nitrate Urine Negative (Negative); Protein Urine Negative (Negative); Specific Grav Ur 1.015 (1.001-1.035); Urobilinogen Urine 0.2 mg/dL (<2.0)
[2022-06-24] MEDS: SODIUM CHLORIDE 0.9% IV 1,000 ML 999 ML IV CONT (04:14)
[2022-06-24 04:15] LABS: Add Urine Microscopic? NO
[2022-06-24] MEDS: FAMOTIDINE 20 MG/2 ML VIAL IV PUSH (04:15)
[2022-06-24] MEDS: PROCHLORPERAZINE EDISYLATE 10 MG/2 ML VIAL IV PUSH (04:30)
--- NOTE | 2022-06-24 04:45 | ED.GENADULT ---
HPI - General Adult General Chief complaint: Abdominal Pain Stated complaint: abd pain, vomiting Time Seen by Provider: 06/24/22 03:15 History of Present Illness HPI narrative: Patient a 42-year-old gentleman who presents emerged department with chief complaint of abdominal pain and nausea and vomiting. Patient is well-known to our emergency department and has history of pancreatitis gastroparesis and chronic abdominal pain. Patient reports his symptoms started today has had vomiting and reports he is not able to get comfortable. Related Data Home Medications Medication Instructions Recorded Confirmed [id number] 1 cap PO TID 03/28/20 07/09/21 36,000-114,000-180,000 unit capsule,delay rel (Creon) duloxetine 60 mg capsule,delayed 60 mg PO BID 01/22/21 07/09/21 release vcyhat-setarxzp-rfqegii 2 cap PO TIDWM 01/22/21 07/09/21 36,000-114,000-180,000 unit capsule,delay rel (Creon) Allergies Allergy/AdvReac Type Severity Reaction Status Date / Time doxycycline Allergy Unknown Gastrointestinal Verified 06/24/22 04:16 Upset metoclopramide Allergy Unknown Muscle Verified 06/24/22 04:16 Spasms sulfamethoxazole Allergy Unknown Gastrointestinal Verified 06/24/22 04:16 Upset trimethoprim Allergy Unknown Gastrointestinal Verified 06/24/22 04:16 Upset haloperidol [From Haldol] AdvReac Mild Muscle Verified 06/24/22 04:16 Spasms Sulfa (Sulfonamide AdvReac Gastrointestinal Verified 06/24/22 04:16 Antibiotics) Upset Review of Systems Review of Systems: A 10 system review of systems was completed on the patient and is negative except for what is stated in the HPI. Nursing and ancillary documentation was reviewed. [facility] Past Medical History Medical History Anxiety Chronic pancreatitis Colitis Cyclic vomiting syndrome Cyclical vomiting Depression Gastroenteritis GERD (gastroesophageal reflux disease) Hypertension IBD (inflammatory bowel disease) Kidney stones Pancreatitis Surgical History Surgical History Hx of cholecystectomy Family History Family History Grandparent Acute myocardial infarction Social History Social History Smoking packs per day: 1 Smoking cigarettes per day: 20.0 Years smoked: 20 Smoking pack-years: 20.00 Smoking status: Current every day smoker Tobacco type: cigarettes Alcohol intake: never Substance use: current Substance use type: marijuana Last use: PROBABLY ABOUT A WEEK AGOago Living arrangements: alone Gender identity (if verbalized by the patient): Male Sexual Orientation (if Verbalized by the Patient): Straight or Heterosexual Spiritual care concerns: No Exam Narrative: GENERAL: Conversant, appears to be vomiting in the room. HEAD: Normocephalic, atraumatic. EYES: PERRLA and EOMI. ENT: Nares clear, no rhinorrhea or epistaxis. Mucous membranes moist. NECK: Supple. CHEST: Clear to auscultation. No respiratory distress. HEART: Regular rate and rhythm. No murmur heard. Normal peripheral pulses. ABDOMEN: Soft, nontender, nondistended, normal active bowel sounds. EXTREMITIES: Normal range of motion. No edema. SKIN: Warm, dry, no rash. NEURO: No focal deficits. Alert and oriented x3. PSYCH: Normal mood and affect. Course Course Emergency Course: Patient received hydration and antiemetics H2 camille the patient was now able to tolerate p.o. and was given p.o. [place] patient's laboratory studies were reviewed the patient had normal liver enzymes normal bilirubin normal creatinine and a normal lipase. Patient has had extensive imaging in the past urinalysis shows no ketones in the urine and a normal specific gravity. Vital Signs Vital signs: Vital Signs
[2022-06-24] MEDS: HYDROcodone/acetaminophen (*CRX) 5-325 MG TABLET 1 TAB PO (05:06)
[2022-06-24 05:10] VITALS: BP 130/72; PULSE 85; RESP 16; O2SAT 98
--- NOTE | 2022-07-22 10:36 | PC.NURSE ---
LATE ENTRY This note is being entered to document information to the patient's record. The following information was omitted on [06/24/22], by [Mignon Carrera RN]. NS stopped at 0615
--- NOTE | 2022-07-22 11:05 | PC.NURSE ---
LATE ENTRY This note is being entered to document information to the patient's record. The following information was omitted on [], by [Eun Cui]. Unable to document on JUL, NS given 1000ml and stop time 0500 on 06/24/22.
== END 2022-06-24 05:11 | disposition home or self-care (01) ==
PROVIDERS: Emergency Provider Emergency Medicine; PCP Family Medicine
DX: R10.9 Unspecified abdominal pain (principal); I10 Essential (primary) hypertension; K86.1 Other chronic pancreatitis; K21.9 Gastro-esophageal reflux disease without esophagitis; K58.9 Irritable bowel syndrome, unspecified; K31.84 Gastroparesis; Z87.442 Personal history of urinary calculi; F17.210 Nicotine dependence, cigarettes, uncomplicated
CPT/HCPCS: 36415; 80053; 81003; 83690; 85025; 96361; 96374; 96375; 99284; A9270; J0780; J7030

== ENCOUNTER 2022-07-06 13:45 | Emergency (ER) | payer OTHER, SELFPAY ==
[2022-07-06 13:59] VITALS: BP 164/103; PULSE 84; RESP 16; TEMP 36.9; O2SAT 100
[2022-07-06 14:32] LABS: Basophils Absolute Auto 0.1 K/mm3 (0.0-0.1); Basophils Percent Auto 0.5 % (0.2-1.2); Eosinophils Absolute Auto 0.2 K/mm3 (0-0.3); Eosinophils Percent Auto 1.7 % (0-4.4); Hematocrit 38.3 % (42.0-52.0); Hemoglobin 12.2 g/dL (14.0-18.0); Immature Granulocyte Absolute 0.05 K/mm3 (0.00-0.031); Immature Granulocyte Percent A 0.4 % (0-0.5); Lymphocytes Absolute Auto 1.51 K/mm3 (0.9-3.2); Lymphocytes Percent Auto 12.1 % (18.3-44.2); Mean Corpuscular HGB Conc 31.9 g/dl (32-36); Mean Corpuscular Hemoglobin 25.3 pg (26-34); Mean Corpuscular Volume 79.5 fl (80-100); Monocytes Absolute Auto 1.5 K/mm3 (0.1-0.6); Neutrophils Absolute Auto 9.1 K/mm3 (1.3-6.7); Neutrophils Percent Auto 73.3 % (45.5-73.1); Platelet Count Result 295 k/mm3 (150-375); Red Blood Count 4.82 M/mm3 (4.6-6.20); Red Cell Distribution Width 17.8 % (11.5-14.5); White Blood Count 12.4 K/mm3 (4.5-10.0)
[2022-07-06 14:46] LABS: Alanine Aminotransferase 25 U/L (6-50); Albumin Level 4.7 g/dL (3.5-5.1); Alkaline Phosphatase 93 U/L (38-126); Anion Gap 8 mmol/L (8-16); Aspartate Amino Transferase 33 U/L (17-59); Bilirubin,Total 0.5 mg/dL (0.2-1.3); Blood Urea Nitrogen 8 mg/dL (9-20); Calcium 9.1 mg/dL (8.4-10.2); Carbon Dioxide 25 mmol/L (22-30); Chloride 103 mmol/L (98-107); Estimated CRCL calculation 109 ml/min; Estimated Glomerular Filt Rate > 60; Glucose 102 mg/dL (65-110); Lipase 252 U/L (23-300); Potassium 4.1 mmol/L (3.4-5.0); Sodium 136 mmol/L (137-145)
== END 2022-07-06 15:37 | disposition left against medical advice (07) ==
LOC: ANHED 15:21
PROVIDERS: Emergency Provider Emergency Medicine; PCP Family Medicine
DX: R10.9 Unspecified abdominal pain (principal)
CPT/HCPCS: 36415; 80053; 83690; 85025; 99199

== ENCOUNTER 2022-08-26 17:22 | Emergency (ER) | payer OTHER, SELFPAY ==
[2022-08-26 17:32] VITALS: BP 131/81; PULSE 82; RESP 16; TEMP 37.4; O2SAT 100
[2022-08-26 17:42] LABS: Basophils Percent Auto 0.2 % (0.2-1.2); Eosinophils Percent Auto 0.1 % (0-4.4); Hematocrit 36.7 % (42.0-52.0); Hemoglobin 11.6 g/dL (14.0-18.0); Immature Granulocyte Absolute 0.07 K/mm3 (0.00-0.031); Immature Granulocyte Percent A 0.6 % (0-0.5); Lymphocytes Absolute Auto 1.26 K/mm3 (0.9-3.2); Lymphocytes Percent Auto 11.2 % (18.3-44.2); Mean Corpuscular HGB Conc 31.6 g/dl (32-36); Mean Corpuscular Hemoglobin 26.3 pg (26-34); Mean Corpuscular Volume 83.2 fl (80-100); Mean Platelet Volume 9.6 fl (7.4-10.4); Monocytes Absolute Auto 1.1 K/mm3 (0.1-0.6); Monocytes Percent Auto 9.4 % (2.6-8.5); Neutrophils Absolute Auto 8.8 K/mm3 (1.3-6.7); Neutrophils Percent Auto 78.5 % (45.5-73.1); Platelet Count Result 299 k/mm3 (150-375); Red Blood Count 4.41 M/mm3 (4.6-6.20); Red Cell Distribution Width 17.3 % (11.5-14.5); White Blood Count 11.3 K/mm3 (4.5-10.0)
[2022-08-26 17:53] LABS: Alanine Aminotransferase 24 U/L (6-50); Albumin Level 4.2 g/dL (3.5-5.1); Alkaline Phosphatase 78 U/L (38-126); Anion Gap 8 mmol/L (8-16); Aspartate Amino Transferase 29 U/L (17-59); Bilirubin,Total 0.6 mg/dL (0.2-1.3); Blood Urea Nitrogen 8 mg/dL (9-20); Calcium 8.5 mg/dL (8.4-10.2); Carbon Dioxide 24 mmol/L (22-30); Chloride 107 mmol/L (98-107); Estimated CRCL calculation 89 ml/min; Estimated Glomerular Filt Rate > 60; Glucose 129 mg/dL (65-110); Lipase 32 U/L (23-300); Potassium 3.7 mmol/L (3.4-5.0); Sodium 139 mmol/L (137-145)
[2022-08-26] MEDS: ONDANSETRON INJ 4 MG/2 ML VIAL IV PUSH (20:41)
[2022-08-26] MEDS: FAMOTIDINE 20 MG/2 ML VIAL IV PUSH (20:42)
[2022-08-26] MEDS: SODIUM CHLORIDE 0.9% IV 1,000 ML 999 ML IV CONT (20:42)
[2022-08-26] MEDS: DICYCLOMINE HCL INJ 20 MG/2 ML VIAL IM (20:42)
--- NOTE | 2022-08-26 20:54 | ED.GENADULT ---
HPI - General Adult General Chief complaint: Abdominal Pain Stated complaint: abd pain Time Seen by Provider: 08/26/22 19:39 History of Present Illness HPI narrative: Patient is a 42-year-old male who is well-known to this facility here for evaluation of acute on chronic epigastric abdominal pain, nausea and vomiting x2 days. States that he has been unable to tolerate any p.o. He has tried hyoscyamine and Zofran at home without relief. No fevers, chills, diarrhea or constipation. Has been seen here numerous times for similar complaints, imaging has been reassuring, patient repeatedly requesting Dilaudid. Related Data Home Medications Medication Instructions Recorded Confirmed [id number]-fpqumrzs-[id number] 1 cap PO TID 03/28/20 07/09/21 36,000-114,000-180,000 unit capsule,delay rel (Creon) duloxetine 60 mg capsule,delayed 60 mg PO BID 01/22/21 07/09/21 release zfibca-tdjuvfpu-emhymaa 2 cap PO TIDWM 01/22/21 07/09/21 36,000-114,000-180,000 unit capsule,delay rel (Creon) Allergies Allergy/AdvReac Type Severity Reaction Status Date / Time doxycycline Allergy Unknown Gastrointestinal Verified 06/24/22 04:16 Upset metoclopramide Allergy Unknown Muscle Verified 06/24/22 04:16 Spasms sulfamethoxazole Allergy Unknown Gastrointestinal Verified 06/24/22 04:16 Upset trimethoprim Allergy Unknown Gastrointestinal Verified 06/24/22 04:16 Upset haloperidol [From Haldol] AdvReac Mild Muscle Verified 06/24/22 04:16 Spasms Sulfa (Sulfonamide AdvReac Gastrointestinal Verified 06/24/22 04:16 Antibiotics) Upset Review of Systems Review of Systems: Gen: Denies fevers or chills Eyes: Denies eye pain or visual change ENT: Denies congestion Respiratory: Denies shortness of breath or cough CV: Denies chest pain or palpitations GI: reports abdominal pain, nausea and vomiting denies burning, urgency, frequency or hematuria Musculoskeletal: Denies back pain or muscle pain Neuro: Denies numbness, tingling, weakness or focal weakness Skin: Denies rash Except as documented, all other systems reviewed and negative PMFSH Past Medical History Medical History Anxiety Chronic pancreatitis Colitis Cyclic vomiting syndrome Cyclical vomiting Depression Gastroenteritis GERD (gastroesophageal reflux disease) Hypertension IBD (inflammatory bowel disease) Kidney stones Pancreatitis Surgical History Surgical History Hx of cholecystectomy Family History Family History Grandparent Acute myocardial infarction Social History Social History Smoking packs per day: 1 Smoking cigarettes per day: 20.0 Years smoked: 20 Smoking pack-years: 20.00 Smoking status: Current every day smoker Tobacco type: cigarettes Alcohol intake: never Substance use: current Substance use type: marijuana Last use: PROBABLY ABOUT A WEEK AGOago Living arrangements: alone Gender identity (if verbalized by the patient): Male Sexual Orientation (if Verbalized by the Patient): Straight or Heterosexual Spiritual care concerns: No Exam Narrative: APPEARANCE: Well appearing, no pain in distress, well-nourished. Head: Normocephalic and atraumatic. EYES: PERRLA/EOMI, conjunctivae clear NOSE: No nasal drainage EARS: External ear normal in appearance THROAT: Oropharynx is clear. Mucous membranes are moist. NECK: Supple. No adenopathy, no masses. RESPIRATORY: Airway patent, respirations nonlabored. Clear to auscultation bilaterally, no rales, rhonchi, wheezing. CARDIOVASCULAR: Regular rate and rhythm without murmurs, rubs, or gallops. ABDOMINAL: Normoactive bowel sounds. Soft, nontender, nondistended. No rebound tenderness or guarding. MUSCULOSKELETAL: Extremities
[2022-08-26 21:14] LABS: Appearance Urine Clear (Clear); Bilirubin Urine Negative (Negative); Blood Urine Negative (Negative); Color Urine Yellow (Yellow); Glucose Urine UA Negative (Negative); Ketones Urine Negative (Negative); Leukocyte Esterase Ur Negative LEU/UL (Negative); Nitrate Urine Negative (Negative); Protein Urine Negative (Negative); Specific Grav Ur 1.006 (1.001-1.035); Urobilinogen Urine 0.2 mg/dL (<2.0)
[2022-08-26] MEDS: HYDROcodone/acetaminophen (*CRX) 5-325 MG TABLET 1 TAB PO (21:17)
[2022-08-26 21:23] LABS: Add Urine Microscopic? NO
[2022-08-26] MEDS: MORPHINE SULFATE (*CRX) 2 MG/ML INJ IV PUSH (22:42)
[2022-08-26 23:41] VITALS: BP 122/69; PULSE 80; RESP 18; TEMP 36.6; O2SAT 99
== END 2022-08-26 23:42 | disposition home or self-care (01) ==
PROVIDERS: Emergency Medicine; Emergency Provider Physician Assistant; PCP Family Medicine
DX: R10.13 Epigastric pain (principal); G89.29 Other chronic pain; R11.2 Nausea with vomiting, unspecified; I10 Essential (primary) hypertension; K86.1 Other chronic pancreatitis; K21.9 Gastro-esophageal reflux disease without esophagitis; K58.9 Irritable bowel syndrome, unspecified; Z87.442 Personal history of urinary calculi; Z90.49 Acquired absence of other specified parts of digestive tract; F17.210 Nicotine dependence, cigarettes, uncomplicated
CPT/HCPCS: 36415; 80053; 81003; 83690; 85025; 96361; 96372; 96374; 96375; 99284; A9270; J0500; J2270; J2405; J7030

== ENCOUNTER 2022-09-24 19:38 | Emergency (ER) | payer OTHER, SELFPAY ==
[2022-09-24 19:44] VITALS: BP 181/107; PULSE 80; RESP 20; TEMP 36.6; O2SAT 100
[2022-09-24 20:01] LABS: Basophils Absolute Auto 0.1 K/mm3 (0.0-0.1); Basophils Percent Auto 0.5 % (0.2-1.2); Eosinophils Absolute Auto 0.2 K/mm3 (0-0.3); Eosinophils Percent Auto 1.5 % (0-4.4); Hematocrit 35.5 % (42.0-52.0); Hemoglobin 11.5 g/dL (14.0-18.0); Immature Granulocyte Absolute 0.05 K/mm3 (0.00-0.031); Immature Granulocyte Percent A 0.4 % (0-0.5); Lymphocytes Absolute Auto 1.53 K/mm3 (0.9-3.2); Lymphocytes Percent Auto 13.1 % (18.3-44.2); Mean Corpuscular HGB Conc 32.4 g/dl (32-36); Mean Corpuscular Hemoglobin 26.5 pg (26-34); Mean Corpuscular Volume 81.8 fl (80-100); Monocytes Absolute Auto 1.1 K/mm3 (0.1-0.6); Monocytes Percent Auto 9.7 % (2.6-8.5); Neutrophils Absolute Auto 8.7 K/mm3 (1.3-6.7); Neutrophils Percent Auto 74.8 % (45.5-73.1); Platelet Count Result 421 k/mm3 (150-375); Red Blood Count 4.34 M/mm3 (4.6-6.20); Red Cell Distribution Width 16.6 % (11.5-14.5); White Blood Count 11.7 K/mm3 (4.5-10.0)
[2022-09-24 20:10] LABS: Appearance Urine Cloudy (Clear); Bacteria Urine None Seen /hpf; Bilirubin Urine Negative (Negative); Blood Urine Negative (Negative); Color Urine Yellow (Yellow); Glucose Urine UA Negative (Negative); Ketones Urine Negative (Negative); Leukocyte Esterase Ur Negative LEU/UL (Negative); Nitrate Urine Negative (Negative); Non Pathogenic Casts 0-2; Protein Urine Negative (Negative); RBC Urine 0-2 /hpf (0-2); Specific Grav Ur 1.009 (1.001-1.035); Squamous Epithelial Cell Urine None seen /hpf (Few); Urobilinogen Urine 0.2 mg/dL (<2.0); WBC Urine 0-5 /hpf; pH Urine 7.5 (5.0-9.0)
[2022-09-24 20:11] LABS: Alanine Aminotransferase 25 U/L (6-50); Albumin Level 4.2 g/dL (3.5-5.1); Alkaline Phosphatase 73 U/L (38-126); Anion Gap 8 mmol/L (8-16); Aspartate Amino Transferase 24 U/L (17-59); Bilirubin,Total 0.4 mg/dL (0.2-1.3); Blood Urea Nitrogen 9 mg/dL (9-20); Calcium 8.7 mg/dL (8.4-10.2); Carbon Dioxide 29 mmol/L (22-30); Chloride 103 mmol/L (98-107); Estimated CRCL calculation 81 ml/min; Estimated Glomerular Filt Rate > 60; Glucose 135 mg/dL (65-110); Lipase 177 U/L (23-300); Potassium 3.4 mmol/L (3.4-5.0); Sodium 140 mmol/L (137-145)
[2022-09-24 20:13] LABS: Add Urine Microscopic? YES
[2022-09-24] MEDS: ONDANSETRON INJ 4 MG/2 ML VIAL IV PUSH (20:59)
[2022-09-24] MEDS: SODIUM CHLORIDE 0.9% IV 2,000 ML 999 ML IV CONT (20:59)
[2022-09-24] MEDS: diphenhydrAMINE HCl INJ 50 MG/ML VIAL 25 MG IV PUSH (21:07)
[2022-09-24] MEDS: FAMOTIDINE 20 MG/2 ML VIAL IV PUSH (21:10)
[2022-09-24] MEDS: PROCHLORPERAZINE EDISYLATE 10 MG/2 ML VIAL IV PUSH (21:23)
[2022-09-24] MEDS: KETOROLAC 15 MG/ML VIAL (*BKC) IV PUSH (21:23)
--- NOTE | 2022-09-24 23:03 | ED.GENADULT ---
HPI - General Adult General Chief complaint: Abdominal Pain Stated complaint: nausea, abdominal pain, cyclical vomiting Time Seen by Provider: 09/24/22 20:06 History of Present Illness HPI narrative: A 42-year-old male with chronic abdominal pain presenting to ED with abdominal pain. Patient says the pain is in the upper quadrants, sharp, radiating through his back, constant. He has had this many times in the past. There are no alleviating or exacerbating symptoms. Patient was actually admitted to a hospital last month was diagnosed with colitis and a small renal infarct. He is concerned that he has a similar problem today. He has not taken anything for his pain Related Data Home Medications Medication Instructions Recorded Confirmed [id number] 1 cap PO TID 03/28/20 07/09/21 36,000-114,000-180,000 unit capsule,delay rel (Creon) duloxetine 60 mg capsule,delayed 60 mg PO BID 01/22/21 07/09/21 release bjctcg-suuuzkrv-vywmhgs 2 cap PO TIDWM 01/22/21 07/09/21 36,000-114,000-180,000 unit capsule,delay rel (Creon) Allergies Allergy/AdvReac Type Severity Reaction Status Date / Time doxycycline Allergy Unknown Gastrointestinal Verified 06/24/22 04:16 Upset metoclopramide Allergy Unknown Muscle Verified 06/24/22 04:16 Spasms sulfamethoxazole Allergy Unknown Gastrointestinal Verified 06/24/22 04:16 Upset trimethoprim Allergy Unknown Gastrointestinal Verified 06/24/22 04:16 Upset haloperidol [From Haldol] AdvReac Mild Muscle Verified 06/24/22 04:16 Spasms Sulfa (Sulfonamide AdvReac Gastrointestinal Verified 06/24/22 04:16 Antibiotics) Upset PMFSH Past Medical History Medical History Anxiety Chronic pancreatitis Colitis Cyclic vomiting syndrome Cyclical vomiting Depression Gastroenteritis GERD (gastroesophageal reflux disease) Hypertension IBD (inflammatory bowel disease) Kidney stones Pancreatitis Surgical History Surgical History Hx of cholecystectomy Family History Family History Grandparent Acute myocardial infarction Social History Social History Smoking packs per day: 1 Smoking cigarettes per day: 20.0 Years smoked: 20 Smoking pack-years: 20.00 Smoking status: Current every day smoker Tobacco type: cigarettes Alcohol intake: never Substance use: current Substance use type: marijuana Last use: PROBABLY ABOUT A WEEK AGOago Living arrangements: alone Gender identity (if verbalized by the patient): Male Sexual Orientation (if Verbalized by the Patient): Straight or Heterosexual Spiritual care concerns: No Exam Narrative: APPEARANCE: No apparent distress. Head: atraumatic. EYES: EOMI, NOSE: Atraumatic NECK: Trachea midline RESPIRATORY: No increased rate of breathing CTAB CARDIOVASCULAR: RRR, ABDOMINAL: abdomen is soft, nontender with no guarding or rebound, no CVA tenderness MUSCULOSKELETAl: No obvious deformities NEURO: Alert. Moving 4/4 extremities SKIN:: Warm, dry. Normal color PSYCHIATRIC: Normal affect Course Vital Signs Vital signs: Vital Signs Temperature 97.9 F 09/24/22 19:44 Pulse Rate 80 09/24/22 19:44 Respiratory Rate 20 09/24/22 19:44 Blood Pressure 181/107 H 09/24/22 19:44 Pulse Oximetry 100 09/24/22 19:44 Oxygen Delivery Room Air 09/24/22 19:44 Temperature 97.9 F 09/24/22 19:44 Pulse Rate 80 09/24/22 19:44 Respiratory Rate 20 09/24/22 19:44 Blood Pressure 181/107 H 09/24/22 19:44 Pulse Oximetry 100 09/24/22 19:44 Oxygen Delivery Room Air 09/24/22 19:44 Medical Decision Making [facility] Narrative Medical decision making narrative: -Presentation: 42-year-old male with chronic abdominal pain who is well known to our emergency de
[2022-09-24 23:42] VITALS: BP 138/78; PULSE 88; RESP 18; O2SAT 99
== END 2022-09-24 23:43 | disposition home or self-care (01) ==
PROVIDERS: Emergency Provider Emergency Medicine; PCP Family Medicine
DX: R10.10 Upper abdominal pain, unspecified (principal); I10 Essential (primary) hypertension; F17.210 Nicotine dependence, cigarettes, uncomplicated
CPT/HCPCS: 36415; 80053; 81001; 83690; 85025; 96361; 96365; 96366; 96375; 99284; J0131; J0780; J1200; J1885; J2405; J7030

== ENCOUNTER 2022-10-28 07:24 | Emergency (ER) | payer OTHER, SELFPAY ==
--- NOTE | ~2022-10-28 | CT_ITS ---
EXAMINATION: CT abdomen pelvis w con DATE: 10/28/2022 08:37 INDICATION: Epigastric pain TECHNIQUE: Computed tomography (CT) of the abdomen and pelvis was performed with 100 mL Omnipaque-350 intravenous contrast. Automated exposure control and iterative reconstruction technique were employe d. The dose-length product was 343.40 mGy-cm. COMPARISON: 02/25/2022 FINDINGS: Mild dependent atelectasis in bilateral lower lobes. Heart size normal. No pericardial or pleural eff usion. Persistent small amount of pneumobilia which may be related to prior cholecystectomy and sphin cterotomy with cholecystectomy clips at the gallbladder fossa. Liver is otherwise unremarkable. Splee n, pancreas, bilateral adrenal glands and left kidney are normal. Slight delayed phase of renal paren chymal enhancement at the anterior mid to lower right kidney with new small region of renal scarring with decreased cortical enhancement and associated mild cortical volume loss at the caudal tip of the right kidney. There appears to be a small amount of thrombus within the distal aspect of an accessor y right renal artery which supplies more superiorly than the dominant right renal artery but which gomez pplies the anterior lower pole of the right kidney. 2 mm nonobstructing stone at the lower pole of th e right kidney. Subcentimeter cyst at the upper pole of the right kidney. Bowels including the append ix are normal. Mild bladder wall thickening likely related to partially decompressed state. No free i ntraperitoneal gas or fluid. No pathologically enlarged abdominal or pelvic lymphadenopathy. Small fa t-containing right inguinal hernia. Minimal scattered degenerative skeletal changes. IMPRESSION: 1. Delayed renal parenchymal enhancement the lower pole of the right kidney centimeters small focus o f cortical scarring likely related to chronic infarction, new since the prior study with suggestion o f small amount of thrombus in the distal aspect of the accessory right renal artery which supplies an terior lower pole. 2. 2 mm nonobstructing right renal stone. Reviewed, dictated and finalized at location A. IMPRESSION: 1. Delayed renal parenchymal enhancement the lower pole of the right kidney vee timeters small focus of cortical scarring likely related to chronic infarction, new since the prior study with suggestion of small amount of thrombus in the d istal aspect of the accessory right renal artery which supplies anterior lower pole. 2. 2 mm nonobstructing right renal stone.
[2022-10-28 07:32] VITALS: BP 148/103; PULSE 91; RESP 16; TEMP 36.7; O2SAT 99
[2022-10-28 07:47] VITALS: BP 147/125; PULSE 88; RESP 18; O2SAT 100
[2022-10-28 08:03] LABS: Basophils Percent Auto 0.3 % (0.2-1.2); Eosinophils Percent Auto 0.2 % (0-4.4); Hematocrit 37.5 % (42.0-52.0); Hemoglobin 12.3 g/dL (14.0-18.0); Immature Granulocyte Absolute 0.03 K/mm3 (0.00-0.031); Immature Granulocyte Percent A 0.3 % (0-0.5); Lymphocytes Absolute Auto 1.84 K/mm3 (0.9-3.2); Lymphocytes Percent Auto 18.3 % (18.3-44.2); Mean Corpuscular HGB Conc 32.8 g/dl (32-36); Mean Corpuscular Hemoglobin 26.7 pg (26-34); Mean Corpuscular Volume 81.3 fl (80-100); Mean Platelet Volume 9.3 fl (7.4-10.4); Monocytes Absolute Auto 0.7 K/mm3 (0.1-0.6); Monocytes Percent Auto 7.2 % (2.6-8.5); Neutrophils Absolute Auto 7.4 K/mm3 (1.3-6.7); Neutrophils Percent Auto 73.7 % (45.5-73.1); Platelet Count Result 311 k/mm3 (150-375); Red Blood Count 4.61 M/mm3 (4.6-6.20); White Blood Count 10.1 K/mm3 (4.5-10.0)
[2022-10-28] MEDS: ONDANSETRON INJ 4 MG/2 ML VIAL IV PUSH (08:04)
[2022-10-28] MEDS: SODIUM CHLORIDE 0.9% IV 1,000 ML 999 ML IV CONT (08:04)
[2022-10-28] MEDS: fentaNYL CITRATE INJ (*CRX) 100 MCG/2 ML VIAL 50 MCG IV PUSH (08:05)
--- NOTE | 2022-10-28 08:13 | ED.ABDPAIN ---
HPI - Abdominal Pain General Chief Complaint: Abdominal Pain Stated Complaint: abd pain Time Seen by Provider: 10/28/22 07:52 History of Present Illness HPI narrative: Pt presents with epigastric abdominal pain radiating throught to back for a couple of days. Pt has history of pancreatitis and also has recent colitis and renal infarction. Pt is vomiting but denies fever. Related Data Home Medications Medication Instructions Recorded Confirmed [id number]-[id number] 1 cap PO TID 03/28/20 07/09/21 36,000-114,000-180,000 unit capsule,delay rel (Creon) duloxetine 60 mg capsule,delayed 60 mg PO BID 01/22/21 07/09/21 release awyint-egbbwaae-vuqvuex 2 cap PO TIDWM 01/22/21 07/09/21 36,000-114,000-180,000 unit capsule,delay rel (Creon) Allergies Allergy/AdvReac Type Severity Reaction Status Date / Time doxycycline Allergy Unknown Gastrointestinal Verified 06/24/22 04:16 Upset metoclopramide Allergy Unknown Muscle Verified 06/24/22 04:16 Spasms sulfamethoxazole Allergy Unknown Gastrointestinal Verified 06/24/22 04:16 Upset trimethoprim Allergy Unknown Gastrointestinal Verified 06/24/22 04:16 Upset haloperidol [From Haldol] AdvReac Mild Muscle Verified 06/24/22 04:16 Spasms Sulfa (Sulfonamide AdvReac Gastrointestinal Verified 06/24/22 04:16 Antibiotics) Upset Review of Systems Review of Systems: All systems reviewed & are unremarkable except as noted in HPI and below PMFSH Past Medical History Medical History Anxiety Chronic pancreatitis Colitis Cyclic vomiting syndrome Cyclical vomiting Depression Gastroenteritis GERD (gastroesophageal reflux disease) Hypertension IBD (inflammatory bowel disease) Kidney stones Pancreatitis Surgical History Surgical History Hx of cholecystectomy Family History Family History Grandparent Acute myocardial infarction Social History Social History Smoking packs per day: 1 Smoking cigarettes per day: 20.0 Years smoked: 20 Smoking pack-years: 20.00 Smoking status: Current every day smoker Tobacco type: cigarettes Alcohol intake: never Substance use: current Substance use type: marijuana Last use: PROBABLY ABOUT A WEEK AGOago Living arrangements: alone Gender identity (if verbalized by the patient): Male Sexual Orientation (if Verbalized by the Patient): Straight or Heterosexual Spiritual care concerns: No Exam Const: General: healthy appearing and no acute distress Nutritional Appearance: well nourished Orientation/consciousness: patient oriented x3 Limitations: no limitations Neck: Neck: normal visual inspection Resp: Effort & Inspection: normal respiratory effort Auscultation: clear to auscultation bilaterally Cardio: Rate: regular rate Rhythm: regular rhythm GI: GI Palp: Yes Soft to palpation and Yes Tenderness to palpation present (GI) (epigatrum) Back/Spine/Pelvis: Back: no CVA tenderness Skin: General skin exam: normal color Rashes: no rashes Neuro: General: patient oriented x3 and moves all extremities Speech: normal speech Extrem: General: normal to inspection and no clubbing, cyanosis or edema Psych: Mental Status: mental status grossly normal Affect: normal affect Attitude: cooperative Course Course Emergency Course: Pt feels better after dilaudid and zofran, wants to try going home on pain meds. Discussed CT findings of right kidney with Dr Hurtado who is managing and he will follow up. Vital Signs Vital signs: Vital Signs Temperature 98.0 F 10/28/22 07:32 Pulse Rate 91 10/28/22 07:32 Respiratory Rate 16 10/28/22 07:32 Blood Pressure 148/103 H 10/28/22 07:32 Pulse Oximetry 99 10/28/22 07:32 Oxygen Delivery Room Air 0
[2022-10-28 08:14] LABS: INR 0.9; Partial Thromboplastin Time 29.8 SECONDS (22.3-36.8); Prothrombin Time 12.9 Seconds (11.1-14.7)
[2022-10-28 08:15] LABS: Alanine Aminotransferase 30 U/L (6-50); Albumin Level 4.5 g/dL (3.5-5.1); Alkaline Phosphatase 76 U/L (38-126); Anion Gap 6 mmol/L (8-16); Aspartate Amino Transferase 29 U/L (17-59); Bilirubin,Total 0.5 mg/dL (0.2-1.3); Blood Urea Nitrogen 7 mg/dL (9-20); Calcium 9.4 mg/dL (8.4-10.2); Carbon Dioxide 31 mmol/L (22-30); Chloride 100 mmol/L (98-107); Estimated CRCL calculation 89 ml/min; Estimated Glomerular Filt Rate > 60; Glucose 115 mg/dL (65-110); Lipase 62 U/L (23-300); Potassium 3.6 mmol/L (3.4-5.0); Sodium 137 mmol/L (137-145)
[2022-10-28] MEDS: HYDROmorphone HCL INJ (*CRX) 1 MG/ML SYR IV PUSH (08:54)
[2022-10-28] MEDS: FAMOTIDINE 20 MG/2 ML VIAL IV PUSH (08:55)
[2022-10-28 09:12] VITALS: BP 144/99; PULSE 68; RESP 18; O2SAT 97
[2022-10-28 10:08] VITALS: BP 147/108; PULSE 62; RESP 18; O2SAT 100
== END 2022-10-28 10:10 | disposition home or self-care (01) ==
PROVIDERS: Emergency Provider Emergency Medicine; PCP Family Medicine
DX: K86.1 Other chronic pancreatitis (principal); I10 Essential (primary) hypertension; K21.9 Gastro-esophageal reflux disease without esophagitis; K58.9 Irritable bowel syndrome, unspecified; F17.210 Nicotine dependence, cigarettes, uncomplicated; Z87.442 Personal history of urinary calculi; Z90.49 Acquired absence of other specified parts of digestive tract; N20.0 Calculus of kidney; R93.421 Abnormal radiologic findings on diagnostic imaging of right kidney
CPT/HCPCS: 36415; 74177; 80053; 83690; 85025; 85610; 85730; 96361; 96374; 96375; 99284; J1170; J2405; J3010; J7030; Q9967

== ENCOUNTER 2022-10-30 04:40 | Emergency (ER) | payer OTHER, SELFPAY ==
[2022-10-30] VITALS (17 sets, daily range): BP systolic 123–160; BP diastolic 87–106; PULSE 54–100; RESP 10–22; TEMP 36.5; O2SAT 91–100
[2022-10-30] MEDS: SODIUM CHLORIDE 0.9% IV 1,000 ML 999 ML IV CONT (05:40)
[2022-10-30] MEDS: ONDANSETRON INJ 4 MG/2 ML VIAL IV PUSH (05:40)
[2022-10-30] MEDS: FAMOTIDINE 20 MG/2 ML VIAL IV PUSH (05:40)
[2022-10-30] MEDS: PROCHLORPERAZINE EDISYLATE 10 MG/2 ML VIAL IV PUSH (05:40)
[2022-10-30] MEDS: KETOROLAC 15 MG/ML VIAL (*BKC) IV PUSH (05:45)
[2022-10-30 05:51] LABS: Basophils Percent Auto 0.4 % (0.2-1.2); Eosinophils Absolute Auto 0.1 K/mm3 (0-0.3); Eosinophils Percent Auto 1.1 % (0-4.4); Hematocrit 34.7 % (42.0-52.0); Hemoglobin 11.1 g/dL (14.0-18.0); Immature Granulocyte Absolute 0.03 K/mm3 (0.00-0.031); Immature Granulocyte Percent A 0.3 % (0-0.5); Lymphocytes Absolute Auto 0.99 K/mm3 (0.9-3.2); Lymphocytes Percent Auto 10.7 % (18.3-44.2); Mean Corpuscular Hemoglobin 26.5 pg (26-34); Mean Corpuscular Volume 82.8 fl (80-100); Mean Platelet Volume 9.7 fl (7.4-10.4); Monocytes Absolute Auto 0.9 K/mm3 (0.1-0.6); Monocytes Percent Auto 9.2 % (2.6-8.5); Neutrophils Absolute Auto 7.3 K/mm3 (1.3-6.7); Neutrophils Percent Auto 78.3 % (45.5-73.1); Platelet Count Result 288 k/mm3 (150-375); Red Blood Count 4.19 M/mm3 (4.6-6.20); White Blood Count 9.3 K/mm3 (4.5-10.0)
[2022-10-30 06:02] LABS: Alanine Aminotransferase 22 U/L (6-50); Albumin Level 3.9 g/dL (3.5-5.1); Alkaline Phosphatase 63 U/L (38-126); Anion Gap 0 mmol/L (8-16); Aspartate Amino Transferase 21 U/L (17-59); Bilirubin,Total 0.3 mg/dL (0.2-1.3); Blood Urea Nitrogen 9 mg/dL (9-20); Calcium 8.4 mg/dL (8.4-10.2); Carbon Dioxide 31 mmol/L (22-30); Chloride 104 mmol/L (98-107); Estimated CRCL calculation 109 ml/min; Estimated Glomerular Filt Rate > 60; Glucose 111 mg/dL (65-110); Lipase 298 U/L (23-300); Potassium 3.7 mmol/L (3.4-5.0); Sodium 135 mmol/L (137-145)
[2022-10-30 07:22] LABS: Appearance Urine Clear (Clear); Bilirubin Urine Negative (Negative); Blood Urine Negative (Negative); Color Urine Yellow (Yellow); Glucose Urine UA Negative (Negative); Ketones Urine Negative (Negative); Leukocyte Esterase Ur Negative LEU/UL (Negative); Nitrate Urine Negative (Negative); Protein Urine Negative (Negative); Specific Grav Ur 1.006 (1.001-1.035); Urobilinogen Urine 0.2 mg/dL (<2.0)
[2022-10-30 07:27] LABS: Add Urine Microscopic? NO
--- NOTE | 2022-10-30 07:31 | ED.GENADULT ---
HPI - General Adult General Chief complaint: Abdominal Pain Stated complaint: abdominal pain Time Seen by Provider: 10/30/22 05:18 History of Present Illness HPI narrative: This is a 42-year-old male with chronic abdominal pain presenting with abdominal pain. Says that the pain started 3 hours prior to arrival. is a sharp burning pain in the epigastric area that is nonradiating, 10 out 10 intensity and constant. He has experienced this many times in the past. No exacerbating alleviating factors. Says he had 1 episode of nausea and vomiting. Denies fever chills chest pain difficulty breathing or urinary symptoms. Related Data Home Medications Medication Instructions Recorded Confirmed [id number] 1 cap PO TID 03/28/20 07/09/21 36,000-114,000-180,000 unit capsule,delay rel (Creon) duloxetine 60 mg capsule,delayed 60 mg PO BID 01/22/21 07/09/21 release cklvrj-sklaomsi-yeauqnt 2 cap PO TIDWM 01/22/21 07/09/21 36,000-114,000-180,000 unit capsule,delay rel (Creon) Allergies Allergy/AdvReac Type Severity Reaction Status Date / Time doxycycline Allergy Unknown Gastrointestinal Verified 06/24/22 04:16 Upset metoclopramide Allergy Unknown Muscle Verified 06/24/22 04:16 Spasms sulfamethoxazole Allergy Unknown Gastrointestinal Verified 06/24/22 04:16 Upset trimethoprim Allergy Unknown Gastrointestinal Verified 06/24/22 04:16 Upset haloperidol [From Haldol] AdvReac Mild Muscle Verified 06/24/22 04:16 Spasms Sulfa (Sulfonamide AdvReac Gastrointestinal Verified 06/24/22 04:16 Antibiotics) Upset PMFSH Past Medical History Medical History Anxiety Chronic pancreatitis Colitis Cyclic vomiting syndrome Cyclical vomiting Depression Gastroenteritis GERD (gastroesophageal reflux disease) Hypertension IBD (inflammatory bowel disease) Kidney stones Pancreatitis Surgical History Surgical History Hx of cholecystectomy Family History Family History Grandparent Acute myocardial infarction Social History Social History Smoking packs per day: 1 Smoking cigarettes per day: 20.0 Years smoked: 20 Smoking pack-years: 20.00 Smoking status: Current every day smoker Tobacco type: cigarettes Alcohol intake: never Substance use: current Substance use type: marijuana Last use: PROBABLY ABOUT A WEEK AGOago Living arrangements: alone Gender identity (if verbalized by the patient): Male Sexual Orientation (if Verbalized by the Patient): Straight or Heterosexual Spiritual care concerns: No Exam Narrative: APPEARANCE: No apparent distress. Head: atraumatic. EYES: EOMI, NOSE: Atraumatic NECK: Trachea midline RESPIRATORY: No increased rate of breathing , clear to auscultation CARDIOVASCULAR: RRR, ABDOMINAL: Nondistended, mild tenderness in the epigastric area but no guarding or rebound. no CVA tenderness MUSCULOSKELETAl: No obvious deformities NEURO: Alert. Moving 4/4 extremities SKIN:: Warm, dry. Normal color PSYCHIATRIC: Normal affect Course Vital Signs Vital signs: Vital Signs Temperature 97.7 F 10/30/22 04:46 Pulse Rate 100 10/30/22 04:46 Respiratory Rate 18 10/30/22 04:46 Blood Pressure 143/103 H 10/30/22 04:46 Pulse Oximetry 100 10/30/22 04:46 Oxygen Delivery Room Air 10/30/22 04:46 Temperature 97.7 F 10/30/22 04:46 Pulse Rate 82 10/30/22 06:01 Respiratory Rate 15 10/30/22 06:16 Blood Pressure 127/105 H 10/30/22 06:16 Pulse Oximetry 98 10/30/22 06:16 Oxygen Delivery Room Air 10/30/22 04:46 Medical Decision Making [facility] Narrative Medical decision making narrative: -Presentation: 42-year-old male with chronic abdominal pain presenting with his typical abdominal p
--- NOTE | 2022-10-30 07:35 | PC.NURSE ---
Patient report received from JOHN Gibson. All questions answered and care of patient assumed.
== END 2022-10-30 08:54 | disposition home or self-care (01) ==
PROVIDERS: Emergency Provider Emergency Medicine; PCP Family Medicine
DX: R10.13 Epigastric pain (principal); G89.29 Other chronic pain; K86.1 Other chronic pancreatitis; I10 Essential (primary) hypertension; K21.9 Gastro-esophageal reflux disease without esophagitis; K58.9 Irritable bowel syndrome, unspecified; Z90.49 Acquired absence of other specified parts of digestive tract; F17.210 Nicotine dependence, cigarettes, uncomplicated
CPT/HCPCS: 36415; 80053; 81003; 83690; 85025; 96361; 96374; 96375; 99284; J0780; J1885; J2405; J7030

== ENCOUNTER 2022-11-28 14:09 | Emergency (ER) | payer OTHER, SELFPAY ==
[2022-11-28 14:11] VITALS: BP 185/113; PULSE 93; RESP 18; TEMP 36.1; O2SAT 100
[2022-11-28 15:06] LABS: Basophils Absolute Auto 0.1 K/mm3 (0.0-0.1); Basophils Percent Auto 0.4 % (0.2-1.2); Eosinophils Percent Auto 0.1 % (0-4.4); Hematocrit 39.7 % (42.0-52.0); Hemoglobin 12.5 g/dL (14.0-18.0); Immature Granulocyte Absolute 0.07 K/mm3 (0.00-0.031); Immature Granulocyte Percent A 0.5 % (0-0.5); Lymphocytes Absolute Auto 1.24 K/mm3 (0.9-3.2); Lymphocytes Percent Auto 8.7 % (18.3-44.2); Mean Corpuscular HGB Conc 31.5 g/dl (32-36); Mean Corpuscular Hemoglobin 25.7 pg (26-34); Mean Corpuscular Volume 81.7 fl (80-100); Mean Platelet Volume 9.3 fl (7.4-10.4); Monocytes Absolute Auto 1.5 K/mm3 (0.1-0.6); Monocytes Percent Auto 10.3 % (2.6-8.5); Neutrophils Absolute Auto 11.4 K/mm3 (1.3-6.7); Platelet Count Result 422 k/mm3 (150-375); Red Blood Count 4.86 M/mm3 (4.6-6.20); Red Cell Distribution Width 16.7 % (11.5-14.5); White Blood Count 14.2 K/mm3 (4.5-10.0)
[2022-11-28 15:12] LABS: Appearance Urine Clear (Clear); Bacteria Urine None Seen /hpf; Bilirubin Urine Negative (Negative); Blood Urine Negative (Negative); Color Urine Yellow (Yellow); Glucose Urine UA Negative (Negative); Ketones Urine 1+ mg/dL (Negative); Leukocyte Esterase Ur Negative LEU/UL (Negative); Nitrate Urine Negative (Negative); Non Pathogenic Casts 0-2; Protein Urine 1+ mg/dL (Negative); RBC Urine 0-2 /hpf (0-2); Specific Grav Ur 1.024 (1.001-1.035); Squamous Epithelial Cell Urine None seen /hpf (Few); WBC Urine 0-5 /hpf; pH Urine 6.5 (5.0-9.0)
[2022-11-28 15:16] LABS: Alanine Aminotransferase 23 U/L (6-50); Albumin Level 4.6 g/dL (3.5-5.1); Alkaline Phosphatase 93 U/L (38-126); Anion Gap 11 mmol/L (8-16); Aspartate Amino Transferase 26 U/L (17-59); Bilirubin,Total 0.9 mg/dL (0.2-1.3); Blood Urea Nitrogen 13 mg/dL (9-20); Calcium 9.2 mg/dL (8.4-10.2); Carbon Dioxide 23 mmol/L (22-30); Chloride 107 mmol/L (98-107); Estimated CRCL calculation 98 ml/min; Estimated Glomerular Filt Rate > 60; Glucose 128 mg/dL (65-110); Lipase 137 U/L (23-300); Sodium 141 mmol/L (137-145)
--- NOTE | 2022-11-28 15:23 | ED.GENADULT ---
HPI - General Adult General Chief complaint: Abdominal Pain Stated complaint: ABD pain Time Seen by Provider: 11/28/22 14:58 Source: patient Mode of arrival: ambulatory Limitations: no limitations History of Present Illness HPI narrative: This is a 42-year-old male presents to the ED with chief complaint of acute on chronic abdominal pain. Patient states pain got significantly worse this morning and worsened throughout the day so he came to the ER. He has a longstanding history of epigastric pain and nausea and vomiting. He states he has been following with his PCP. States this episode is very similar to episodes in the past. Denies any fevers, chills, problems with bowel movements, urinary symptoms, chest pain, shortness of breath. Related Data Home Medications Medication Instructions Recorded Confirmed [id number]-[id number]-omuhbfz 1 cap PO TID 03/28/20 07/09/21 36,000-114,000-180,000 unit capsule,delay rel (Creon) duloxetine 60 mg capsule,delayed 60 mg PO BID 01/22/21 07/09/21 release huijmj-ouvjnjcj-qiqvyfr 2 cap PO TIDWM 01/22/21 07/09/21 36,000-114,000-180,000 unit capsule,delay rel (Creon) Allergies Allergy/AdvReac Type Severity Reaction Status Date / Time doxycycline Allergy Unknown Gastrointestinal Verified 06/24/22 04:16 Upset metoclopramide Allergy Unknown Muscle Verified 06/24/22 04:16 Spasms sulfamethoxazole Allergy Unknown Gastrointestinal Verified 06/24/22 04:16 Upset trimethoprim Allergy Unknown Gastrointestinal Verified 06/24/22 04:16 Upset haloperidol [From Haldol] AdvReac Mild Muscle Verified 06/24/22 04:16 Spasms Sulfa (Sulfonamide AdvReac Gastrointestinal Verified 06/24/22 04:16 Antibiotics) Upset PMFSH Past Medical History Medical History Anxiety Chronic pancreatitis Colitis Cyclic vomiting syndrome Cyclical vomiting Depression Gastroenteritis GERD (gastroesophageal reflux disease) Hypertension IBD (inflammatory bowel disease) Kidney stones Pancreatitis Surgical History Surgical History Hx of cholecystectomy Family History Family History Grandparent Acute myocardial infarction Social History Social History Smoking packs per day: 1 Smoking cigarettes per day: 20.0 Years smoked: 20 Smoking pack-years: 20.00 Smoking status: Current every day smoker Tobacco type: cigarettes Alcohol intake: never Substance use: current Substance use type: marijuana Last use: PROBABLY ABOUT A WEEK AGOago Living arrangements: alone Gender identity (if verbalized by the patient): Male Sexual Orientation (if Verbalized by the Patient): Straight or Heterosexual Spiritual care concerns: No Exam Narrative: GENERAL: Well-appearing, well-nourished, and in no acute distress. HEAD: Normocephalic, atraumatic. EYES: PERRLA and EOMI. ENT: Nares clear, no rhinorrhea or epistaxis. Mucous membranes moist. Oropharynx without tonsillar hypertrophy exudate or other lesions. NECK: Supple. No adenopathy or masses. CHEST: No respiratory distress. Clear to auscultation. No wheezes rales or rhonchi HEART: Regular rate and rhythm. No murmur heard. Normal peripheral pulses. ABDOMEN: Mild epigastric tenderness. Negative flank tenderness bilaterally. Soft, otherwise nontender, nondistended, normal active bowel sounds. Negative peritoneal signs. MSK: Normal range of motion. No edema. SKIN: Warm, dry, no rash. NEURO: Alert and oriented x3. No focal deficits. PSYCH: Normal mood and affect. Course Course Emergency Course: Reevaluation 1650: Patient is sleeping in the exam room. Pain resolved. Vital Signs Vital signs: Vital Signs Temperature 96.9 F L 11/28/22 14:11 Pulse Rate 93 11/28/22 14:11 Respiratory Rate 18
[2022-11-28] MEDS: SODIUM CHLORIDE 0.9% IV 1,000 ML 999 ML IV CONT (15:29)
[2022-11-28] MEDS: diphenhydrAMINE HCl INJ 50 MG/ML VIAL 25 MG IV PUSH (15:29)
[2022-11-28] MEDS: KETOROLAC 15 MG/ML VIAL (*BKC) IV PUSH (15:30)
[2022-11-28] MEDS: PROCHLORPERAZINE EDISYLATE 10 MG/2 ML VIAL IV PUSH (15:30)
[2022-11-28] MEDS: FAMOTIDINE 20 MG/2 ML VIAL IV PUSH (15:30)
[2022-11-28 15:33] LABS: Add Urine Microscopic? YES
[2022-11-28 15:34] VITALS: BP 146/109; PULSE 85; RESP 20; O2SAT 100
[2022-11-28 17:07] VITALS: BP 140/80; PULSE 80; RESP 18; TEMP 36.7; O2SAT 100
== END 2022-11-28 17:08 | disposition home or self-care (01) ==
PROVIDERS: Preventive Medicine Aerospace Medicine; Emergency Provider Physician Assistant; PCP Family Medicine
DX: R10.13 Epigastric pain (principal); G89.29 Other chronic pain; I10 Essential (primary) hypertension; K86.1 Other chronic pancreatitis; K21.9 Gastro-esophageal reflux disease without esophagitis; K58.9 Irritable bowel syndrome, unspecified; Z87.442 Personal history of urinary calculi; Z90.49 Acquired absence of other specified parts of digestive tract; F17.210 Nicotine dependence, cigarettes, uncomplicated
CPT/HCPCS: 36415; 80053; 81001; 83690; 85025; 96361; 96374; 96375; 99284; J0780; J1200; J1885; J7030

== ENCOUNTER 2022-12-08 00:36 | Emergency (ER) | payer OTHER, SELFPAY ==
[2022-12-08 00:39] VITALS: BP 152/106; PULSE 90; RESP 20; TEMP 36.3; O2SAT 96
[2022-12-08 01:53] VITALS: BP 129/103; PULSE 81; RESP 18; O2SAT 100
[2022-12-08] MEDS: diphenhydrAMINE HCl INJ 50 MG/ML VIAL IV PUSH (02:19)
[2022-12-08 02:23] LABS: Basophils Percent Auto 0.3 % (0.2-1.2); Eosinophils Percent Auto 0.2 % (0-4.4); Hematocrit 38.2 % (42.0-52.0); Immature Granulocyte Absolute 0.04 K/mm3 (0.00-0.031); Immature Granulocyte Percent A 0.3 % (0-0.5); Lymphocytes Absolute Auto 0.93 K/mm3 (0.9-3.2); Lymphocytes Percent Auto 7.8 % (18.3-44.2); Mean Corpuscular HGB Conc 31.4 g/dl (32-36); Mean Corpuscular Hemoglobin 25.2 pg (26-34); Mean Corpuscular Volume 80.1 fl (80-100); Mean Platelet Volume 9.3 fl (7.4-10.4); Monocytes Absolute Auto 0.5 K/mm3 (0.1-0.6); Neutrophils Absolute Auto 10.4 K/mm3 (1.3-6.7); Neutrophils Percent Auto 87.4 % (45.5-73.1); Platelet Count Result 461 k/mm3 (150-375); Red Blood Count 4.77 M/mm3 (4.6-6.20); Red Cell Distribution Width 16.2 % (11.5-14.5); White Blood Count 11.9 K/mm3 (4.5-10.0)
[2022-12-08] MEDS: PROCHLORPERAZINE EDISYLATE 10 MG/2 ML VIAL IV PUSH (02:23)
[2022-12-08] MEDS: SODIUM CHLORIDE 0.9% IV 1,000 ML 999 ML IV CONT (02:26)
[2022-12-08] MEDS: KETOROLAC 30 MG/ML VIAL (*BKC) IV PUSH (02:26)
[2022-12-08 02:33] LABS: Alanine Aminotransferase 22 U/L (6-50); Albumin Level 4.6 g/dL (3.5-5.1); Alkaline Phosphatase 98 U/L (38-126); Anion Gap 8 mmol/L (8-16); Aspartate Amino Transferase 23 U/L (17-59); Bilirubin,Total 0.5 mg/dL (0.2-1.3); Blood Urea Nitrogen 9 mg/dL (9-20); Calcium 9.4 mg/dL (8.4-10.2); Carbon Dioxide 28 mmol/L (22-30); Chloride 103 mmol/L (98-107); Estimated CRCL calculation 98 ml/min; Estimated Glomerular Filt Rate > 60; Glucose 118 mg/dL (65-110); Lipase 132 U/L (23-300); Sodium 139 mmol/L (137-145)
--- NOTE | 2022-12-08 02:38 | ED.GENADULT ---
HPI - General Adult General Chief complaint: Abdominal Pain Stated complaint: ABD pain, n/v Time Seen by Provider: 12/08/22 02:03 History of Present Illness HPI narrative: Patient is a 42-year-old gentleman well-known to the emergency department that presents the emergency department with chief complaint of epigastric pain and nausea and vomiting. Patient reports that he has history of chronic pancreatitis and reports that he started having pain this evening. The patient reports the pain is not improved by anything and reports that its not worsened by anything. Related Data Home Medications Medication Instructions Recorded Confirmed eqhipp-hxbivztq-ewbudel 1 cap PO TID 03/28/20 07/09/21 36,000-114,000-180,000 unit capsule,delay rel (Creon) duloxetine 60 mg capsule,delayed 60 mg PO BID 01/22/21 07/09/21 release ygzrxr-afujggge-zhmxtlw 2 cap PO TIDWM 01/22/21 07/09/21 36,000-114,000-180,000 unit capsule,delay rel (Creon) Allergies Allergy/AdvReac Type Severity Reaction Status Date / Time doxycycline Allergy Unknown Gastrointestinal Verified 12/08/22 00:43 Upset metoclopramide Allergy Unknown Muscle Verified 12/08/22 00:43 Spasms sulfamethoxazole Allergy Unknown Gastrointestinal Verified 12/08/22 00:43 Upset trimethoprim Allergy Unknown Gastrointestinal Verified 12/08/22 00:43 Upset haloperidol [From Haldol] AdvReac Mild Muscle Verified 12/08/22 00:43 Spasms Sulfa (Sulfonamide AdvReac Gastrointestinal Verified 12/08/22 00:43 Antibiotics) Upset Review of Systems Review of Systems: A 10 system review of systems was completed on the patient and is negative except for what is stated in the HPI. Nursing and ancillary documentation was reviewed. [facility] Past Medical History Medical History Anxiety Chronic pancreatitis Colitis Cyclic vomiting syndrome Cyclical vomiting Depression Gastroenteritis GERD (gastroesophageal reflux disease) Hypertension IBD (inflammatory bowel disease) Kidney stones Pancreatitis Surgical History Surgical History Hx of cholecystectomy Family History Family History Grandparent Acute myocardial infarction Social History Social History Smoking packs per day: 1 Smoking cigarettes per day: 20.0 Years smoked: 20 Smoking pack-years: 20.00 Smoking status: Current every day smoker Tobacco type: cigarettes Alcohol intake: never Substance use: current Substance use type: marijuana Last use: PROBABLY ABOUT A WEEK AGOago Living arrangements: alone Gender identity (if verbalized by the patient): Male Sexual Orientation (if Verbalized by the Patient): Straight or Heterosexual Spiritual care concerns: No Exam Narrative: GENERAL: Well-appearing, well-nourished, and in no acute distress. Patient is holding a emesis bag HEAD: Normocephalic, atraumatic. EYES: PERRLA and EOMI. ENT: Nares clear, no rhinorrhea or epistaxis. Mucous membranes moist. NECK: Supple. CHEST: Clear to auscultation. No respiratory distress. HEART: Regular rate and rhythm. No murmur heard. Normal peripheral pulses. ABDOMEN: Soft, minimal tenderness to palpation in the epigastric region, nondistended, normal active bowel sounds. EXTREMITIES: Normal range of motion. No edema. SKIN: Warm, dry, no rash. NEURO: No focal deficits. Alert and oriented x3. PSYCH: Normal mood and affect. Course Vital Signs Vital signs: Vital Signs Temperature 36.3 C L 12/08/22 00:39 Pulse Rate 90 12/08/22 00:39 Respiratory Rate 20 12/08/22 00:39 Blood Pressure 152/106 H 12/08/22 00:39 Pulse Oximetry 96 12/08/22 00:39 Oxygen Delivery Room Air 12/08/22 00:39 Temperature 36.3 C L
[2022-12-08 02:57] LABS: Appearance Urine Cloudy (Clear); Bilirubin Urine Negative (Negative); Blood Urine Negative (Negative); Color Urine Dark Yellow (Yellow); Glucose Urine UA Negative (Negative); Ketones Urine 1+ mg/dL (Negative); Leukocyte Esterase Ur Trace LEU/UL (Negative); Nitrate Urine Negative (Negative); Protein Urine 1+ mg/dL (Negative); Specific Grav Ur 1.025 (1.001-1.035); pH Urine 6.5 (5.0-9.0)
[2022-12-08 03:15] LABS: Add Urine Microscopic? YES; Bacteria Urine None Seen /hpf; Need Manual Microscopic Reviewed; Non Pathogenic Casts 0-2; RBC Urine 0-2 /hpf (0-2); Squamous Epithelial Cell Urine None seen /hpf (Few); WBC Urine 0-5 /hpf
[2022-12-08] MEDS: PANTOPRAZOLE SODIUM IV 40 MG VIAL IV PUSH (03:18)
[2022-12-08] MEDS: FAMOTIDINE 20 MG/2 ML VIAL IV PUSH (03:22)
[2022-12-08 03:34] VITALS: BP 146/93; PULSE 81; RESP 20; O2SAT 97
[2022-12-08 05:02] VITALS: PULSE 66; RESP 16; O2SAT 98
== END 2022-12-08 05:04 | disposition home or self-care (01) ==
PROVIDERS: Emergency Provider Emergency Medicine; PCP Family Medicine
DX: R10.84 Generalized abdominal pain (principal); G89.29 Other chronic pain; I10 Essential (primary) hypertension; K86.1 Other chronic pancreatitis; K21.9 Gastro-esophageal reflux disease without esophagitis; K58.9 Irritable bowel syndrome, unspecified; Z87.442 Personal history of urinary calculi; Z90.49 Acquired absence of other specified parts of digestive tract; F17.210 Nicotine dependence, cigarettes, uncomplicated
CPT/HCPCS: 36415; 80053; 81001; 83690; 85025; 96361; 96374; 96375; 99284; C9113; J0780; J1200; J1885; J7030

== ENCOUNTER 2023-04-04 17:39 | Observation (INO) | payer OTHER, SELFPAY ==
--- NOTE | ~2023-04-04 | XR_ITS ---
EXAMINATION: XR chest 1V portable INDICATION: Epigastric abdominal pain TECHNIQUE: Portable AP chest at 2213 hours COMPARISON: 05/29/2020 FINDINGS: The lungs are free of acute opacities. No pleural effusion or pneumothorax. The cardiomedia stinal silhouette is normal. IMPRESSION: 1. No acute cardiopulmonary abnormality. Reviewed, dictated and finalized at location F. BOTTLE INSPECTOR
--- NOTE | ~2023-04-04 | CT_ITS ---
EXAMINATION: CT abdomen pelvis w con INDICATION: Epigastric pain, history of pancreatitis TECHNIQUE: Computed tomographic images of the abdomen and pelvis were obtained after the administrati on of 100 cc of Omnipaque 350 intravenous contrast. The dose-length product (DLP) was 349.98 mGy-cm. Automated exposure control and iterative reconstruction technique were employed. COMPARISON: 10/28/2022 FINDINGS: The lung bases are clear. The heart size is normal. Changes of cholecystectomy are noted. T he liver, spleen, pancreas, and adrenal glands are normal. The left kidney is unremarkable. A 5 mm hy poattenuating lesion of the right kidney is too small to characterize but likely represents a cyst. T here is mild scarring in the caudal tip of the right kidney. There is a nonobstructing 2 mm stone of the right mid kidney. No pathologically enlarged abdominal or pelvic lymph nodes are identified. No f ree intraperitoneal gas or evidence of bowel obstruction. The appendix is normal. There is a small um bilical hernia containing fat. IMPRESSION: 1. No CT correlate for the patient's symptoms. 2. Nonobstructing right nephrolithiasis. Reviewed, dictated and finalized at location F. L PRESS OPERATOR NUMERICAL CONTROL
[2023-04-04 17:56] VITALS: BP 148/118; PULSE 99; RESP 22; TEMP 35.9; O2SAT 100
[2023-04-04 20:09] VITALS: BP 177/100; PULSE 73; RESP 19; TEMP 37.4; O2SAT 99
[2023-04-04 20:16] LABS: Basophils Percent Auto 0.2 % (0.2-1.2); Hematocrit 39.9 % (42.0-52.0); Hemoglobin 12.2 g/dL (14.0-18.0); Immature Granulocyte Percent A 0.5 % (0-0.5); Lymphocytes Absolute Auto 0.97 K/mm3 (0.9-3.2); Lymphocytes Percent Auto 4.8 % (18.3-44.2); Mean Corpuscular HGB Conc 30.6 g/dl (32-36); Mean Corpuscular Hemoglobin 24.7 pg (26-34); Mean Corpuscular Volume 80.8 fl (80-100); Mean Platelet Volume 9.4 fl (7.4-10.4); Monocytes Absolute Auto 1.5 K/mm3 (0.1-0.6); Monocytes Percent Auto 7.6 % (2.6-8.5); Neutrophils Absolute Auto 17.6 K/mm3 (1.3-6.7); Neutrophils Percent Auto 86.9 % (45.5-73.1); Platelet Count Result 361 k/mm3 (150-375); Red Blood Count 4.94 M/mm3 (4.6-6.20); Red Cell Distribution Width 18.3 % (11.5-14.5); White Blood Count 20.3 K/mm3 (4.5-10.0)
[2023-04-04 20:23] LABS: Appearance Urine Turbid (Clear); Bacteria Urine None Seen /hpf; Bilirubin Urine Negative (Negative); Blood Urine Negative (Negative); Color Urine Dark Yellow (Yellow); Glucose Urine UA Negative (Negative); Ketones Urine Trace mg/dL (Negative); Leukocyte Esterase Ur Negative LEU/UL (Negative); Nitrate Urine Negative (Negative); Protein Urine Trace mg/dL (Negative); RBC Urine 0-2 /hpf (0-2); Squamous Epithelial Cell Urine None seen /hpf (Few); WBC Urine 0-5 /hpf; pH Urine 6.5 (5.0-9.0)
[2023-04-04 20:28] LABS: Alanine Aminotransferase 44 U/L (6-50); Albumin Level 4.6 g/dL (3.5-5.1); Alkaline Phosphatase 89 U/L (38-126); Anion Gap 9 mmol/L (8-16); Aspartate Amino Transferase 63 U/L (17-59); Bilirubin,Total 0.7 mg/dL (0.2-1.3); Blood Urea Nitrogen 8 mg/dL (9-20); Calcium 9.3 mg/dL (8.4-10.2); Carbon Dioxide 29 mmol/L (22-30); Chloride 102 mmol/L (98-107); Estimated CRCL calculation 98 ml/min; Estimated Glomerular Filt Rate > 60; Glucose 119 mg/dL (65-110); Lipase 1215 U/L (23-300); Potassium 3.6 mmol/L (3.4-5.0); Sodium 140 mmol/L (137-145)
[2023-04-04 20:33] LABS: Add Urine Microscopic? NO
[2023-04-04 20:42] LABS: Anisocytosis 1+ (NORMAL); Hypochromasia 1+ (NORMAL); Microcytosis 1+ (NORMAL); Ovalocytes 1+ (NORMAL); Platelet Estimate Adequate (Adequate); Poikilocytosis 1+ (NORMAL); Schistocytes None Seen (NORMAL)
[2023-04-04 20:59] LABS: Influenza A QL RT-PCR Negative (Negative); Influenza B QL RT-PCR Negative (Negative); RSV RNA, RT-PCR Negative (Negative); SARS-CoV-2 RNA PCR Negative (Negative)
[2023-04-04] MEDS: ONDANSETRON INJ 4 MG/2 ML VIAL IV PUSH (22:00)
[2023-04-04] MEDS: HYDROmorphone HCL INJ (*CRX) 1 MG/ML SYR IV PUSH (22:02)
[2023-04-04] MEDS: FAMOTIDINE 20 MG/2 ML VIAL IV PUSH (22:04)
[2023-04-04] MEDS: ACETAMINOPHEN 500 MG TABLET 1000 MG PO (22:04)
--- NOTE | 2023-04-04 22:05 | ECG_ITS ---
Measurements Intervals [place] Rate: 64 P: 28 SD: 113 QRS: 19 QRSD: 112 T: 7 QT: 413 QTc: 428 Interpretive Statements SINUS RHYTHM WITH SHORT SD INTERVAL INTRAVENTRICULAR CONDUCTION DELAY BORDERLINE T WAVE ABNORMALITY- INFERIOR LEADS BORDERLINE ECG COMPARED TO ECG 07/08/2021 21:45:07 INTRAVENTRICULAR CONDUCTION DELAY NOW PRESENT T WAVE ABNORMALITY NOW PRESENT Electronically Signed On 04-05-2023 9:14:30 ASSEMBLER WATCH TRAIN by Bebo Stark D.O.
--- NOTE | 2023-04-04 22:07 | ED.NAVMDI ---
HPI - Nausea/Vomiting/Diarrhea General Chief complaint: Nausea/Vomiting/Diarrhea Stated complaint: n/v Time Seen by Provider: 04/04/23 21:46 History of Present Illness HPI Narrative: 42-year-old male with history of chronic pancreatitis, cholecystectomy and cyclic vomiting reports for evaluation for the acute onset epigastric abdominal pain, nausea and vomiting since 4:00 p.m. this evening. Patient states the abdominal pain begins in his epigastric region and radiates superiorly beneath his ribs. He denies fever, coffee-ground emesis or hematemesis, diarrhea, urinary complaints, chest pain or shortness of breath. He denies recent medication changes. Patient notes that he follows with Dr. Yamilet HURT in [place]. States he had an EGD done within the past few weeks that showed gastritis and hiatal hernia, otherwise unremarkable. He does note that he has had prior pancreatic stent placements however he does not currently have a pancreatic stent in place. He states his GI doctors told him he believes his chronic pancreatitis is secondary to a dysfunction of the sphincter of Oddi. Denies alcohol use. Related Data Home Medications Medication Instructions Recorded Confirmed [id number]-fjkugzir-jxyltij 1 cap PO TID 03/28/20 07/09/21 36,000-114,000-180,000 unit capsule,delay rel (Creon) duloxetine 60 mg capsule,delayed 60 mg PO BID 01/22/21 07/09/21 release gqxeak-cgigpyao-twapatx 2 cap PO TIDWM 01/22/21 07/09/21 36,000-114,000-180,000 unit capsule,delay rel (Creon) Allergies Allergy/AdvReac Type Severity Reaction Status Date / Time doxycycline Allergy Unknown Gastrointestinal Verified 04/05/23 02:33 Upset metoclopramide Allergy Unknown Muscle Verified 04/05/23 02:33 Spasms sulfamethoxazole Allergy Unknown Gastrointestinal Verified 04/05/23 02:33 Upset trimethoprim Allergy Unknown Gastrointestinal Verified 04/05/23 02:33 Upset haloperidol [From Haldol] AdvReac Mild Muscle Verified 04/05/23 02:33 Spasms Sulfa (Sulfonamide AdvReac Gastrointestinal Verified 04/05/23 02:33 Antibiotics) Upset Review of Systems Review of Systems: CONSTITUTIONAL: Denies fever, chills, or sweats. EYES: Denies visual changes, redness, or discharge. ENT: Denies rhinorrhea, congestion, sore throat, or otalgia. CARDIOVASCULAR: Denies chest pain, palpitations, or edema. RESPIRATORY: Denies cough or dyspnea. GASTROINTESTINAL: See HPI GENITOURINARY: Denies dysuria or hematuria. SKIN: Denies rash or itching. MUSCULOSKELETAL: Denies back pain, joint pain, or myalgia. NEUROLOGIC: Denies headache, numbness, or weakness. PSYCHIATRIC: Denies anxiety or depression. [facility] Past Medical History Medical History Anxiety Chronic pancreatitis Colitis Cyclic vomiting syndrome Cyclical vomiting Depression Gastroenteritis GERD (gastroesophageal reflux disease) Hypertension IBD (inflammatory bowel disease) Kidney stones Pancreatitis Surgical History Surgical History Hx of cholecystectomy Family History Family History Grandparent Acute myocardial infarction Social History Social History Smoking packs per day: 1 Smoking cigarettes per day: 20.0 Years smoked: 20 Smoking pack-years: 20.00 Smoking status: Current every day smoker Tobacco type: cigarettes Alcohol intake: current Drinks per week: 3 Substance use: current Substance use type: marijuana Last use: PROBABLY ABOUT A WEEK AGOago Lack of Transportation: No Lack of Food: Never True Current Housing: I Have Housing Concerned About Future Housing: No Difficulty Paying Gas/Electric Bills: No Difficulty Paying for Meds: No Currently Unemployed: No Education: High School Diploma/GED Difficulty w/ Ch
[2023-04-04] MEDS: SODIUM CHLORIDE 0.9% IV 2,000 ML 999 ML IV CONT (22:30)
[2023-04-04 22:35] VITALS: BP 125/87; PULSE 79; RESP 15; O2SAT 99
[2023-04-04 22:38] LABS: Troponin I < 0.012 ng/mL (0.000-0.034)
[2023-04-04 22:41] LABS: Lactic Acid Reflex 1.1 mmol/L (0.7-2.0)
[2023-04-04] MEDS: LORazepam INJ (*CRX) 2 MG/ML VIAL 0.5 MG IV PUSH (23:26)
[2023-04-04] MEDS: SODIUM CHLORIDE 0.9% IV 250 ML 999 ML IV CONT (23:29)
[2023-04-05 01:40] VITALS: BP 99/65; PULSE 74; RESP 16; O2SAT 97
[2023-04-05] MEDS: HYDROmorphone HCL INJ (*CRX) 1 MG/ML SYR 0.5 MG IV PUSH (01:49)
[2023-04-05] MEDS: KETOROLAC 15 MG/ML VIAL (*BKC) IV PUSH (01:50)
[2023-04-05] MEDS: ONDANSETRON INJ 4 MG/2 ML VIAL IV PUSH (01:50)
[2023-04-05] MEDS: SODIUM CHLORIDE 0.9% IV 1,000 ML 200 ML IV CONT ×3 (01:51→12:06)
[2023-04-05 02:24] VITALS: BMI 23.2
--- NOTE | 2023-04-05 02:25 | ADMGEN ---
This patient, Donovan Bailey, was admitted to Medical Room 343-01. Patient/family oriented to hospital policies and general routines including ID bracelet, bed and alarms, visiting hours, pain management, procedures, bathroom and other care routines, personal items, smoking policy, room service/diet, and visiting hours. Information on how to activate the Rapid Response Team has been discussed. Patient/Family are encouraged to report perceived risks to care and to ask questions if they do not understand what they are told or what they should do.
[2023-04-05 05:14] VITALS: BP 104/72; PULSE 60; RESP 18; O2SAT 98
[2023-04-05 05:18] VITALS: TEMP 36.9
[2023-04-05] MEDS: HYDROmorphone HCL INJ (*CRX) 1 MG/ML SYR IV PUSH ×3 (05:58→14:07)
[2023-04-05 06:55] LABS: Basophils Percent Auto 0.4 % (0.2-1.2); Eosinophils Percent Auto 0.2 % (0-4.4); Hematocrit 32.8 % (42.0-52.0); Immature Granulocyte Absolute 0.03 K/mm3 (0.00-0.031); Immature Granulocyte Percent A 0.3 % (0-0.5); Lymphocytes Absolute Auto 2.12 K/mm3 (0.9-3.2); Lymphocytes Percent Auto 22.4 % (18.3-44.2); Mean Corpuscular HGB Conc 30.5 g/dl (32-36); Mean Corpuscular Hemoglobin 24.8 pg (26-34); Mean Corpuscular Volume 81.4 fl (80-100); Mean Platelet Volume 9.9 fl (7.4-10.4); Monocytes Absolute Auto 1.1 K/mm3 (0.1-0.6); Monocytes Percent Auto 11.7 % (2.6-8.5); Neutrophils Absolute Auto 6.1 K/mm3 (1.3-6.7); Platelet Count Result 298 k/mm3 (150-375); Red Blood Count 4.03 M/mm3 (4.6-6.20); Red Cell Distribution Width 18.1 % (11.5-14.5); White Blood Count 9.5 K/mm3 (4.5-10.0)
[2023-04-05 06:58] LABS: Alanine Aminotransferase 30 U/L (6-50); Albumin Level 3.4 g/dL (3.5-5.1); Alkaline Phosphatase 62 U/L (38-126); Anion Gap 7 mmol/L (8-16); Aspartate Amino Transferase 32 U/L (17-59); Bilirubin,Total 0.8 mg/dL (0.2-1.3); Blood Urea Nitrogen 8 mg/dL (9-20); Calcium 8.2 mg/dL (8.4-10.2); Carbon Dioxide 23 mmol/L (22-30); Chloride 108 mmol/L (98-107); Estimated CRCL calculation 124 ml/min; Estimated Glomerular Filt Rate > 60; Glucose 82 mg/dL (65-110); Lipase 171 U/L (23-300); Potassium 3.7 mmol/L (3.4-5.0); Sodium 138 mmol/L (137-145)
[2023-04-05] MEDS: PANTOPRAZOLE SODIUM IV 40 MG VIAL IV PUSH (10:06)
[2023-04-05] MEDS: DICYCLOMINE HCL 10 MG CAPSULE 20 MG PO ×2 (10:06→22:42)
[2023-04-05] MEDS: APIXABAN 5 MG TABLET PO ×2 (10:06→22:44)
[2023-04-05 14:00] VITALS: BP 132/86; PULSE 60; RESP 16; TEMP 36.6; O2SAT 98
--- NOTE | 2023-04-05 15:46 | PM.IMHP ---
H&P: HPI History of Present Illness Date/Time: 04/05/23 15:46 Chief Complaint: abdominal pain Narrative: This is a 42-year-old male with significant past medical history of recurrent pancreatitis of unknown origin, who is presenting with symptoms of abdominal pain, nausea and vomiting who was found to have pancreatitis again via lab exam, elevated lipase. His past medical history is notable for unknown etiology of the kidney infarction for which he has been on Eliquis for at least a year, recurrent pancreatitis of unknown origin for which he sees an outpatient GI doctor Dr. 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 His PCP is Dr. Td Hurtado. The patient has a very strict diet where he eats limited and mostly liquids during the day, goes to work, and then has some sort of an abbreviated meal pattern after work. Over the past week he has been noticing nausea vomiting and abdominal pain type symptoms, which has prompted him to come to the hospital today. He reports that occasionally these pancreatitis episodes are not documented on CT scan or laboratory analysis. In the ER his WBC count was 20.3 and his lipase was 1215. His AST was also elevated to 63. His CT scan did not show any evidence of pancreatitis. He received an unclear amount of IV fluids. The ER notes documented 30 mL/kg of fluids which should be about 2.5 L. He was placed on 200 mL/hour of normal saline continuous IV fluids. He also received Pepcid, IV Dilaudid, Tylenol, and Toradol. In evaluation today, the patient's WBC count and lipase have normalized. And his symptoms have almost completely resolved. He is ready for a p.o. diet. Review of Systems Review of Systems: See HPI [facility] Past Medical History Medical History (Updated 04/05/23 @ 15:54 by Jimbo Tim MD) Anxiety Chronic pancreatitis Colitis Cyclic vomiting syndrome Cyclical vomiting Depression Gastroenteritis GERD (gastroesophageal reflux disease) Hypertension IBD (inflammatory bowel disease) Kidney infarction Kidney stones Pancreatitis Surgical History Surgical History Hx of cholecystectomy Family History Family History Grandparent Acute myocardial infarction Social History Social History Smoking packs per day: 1 Smoking cigarettes per day: 20.0 Years smoked: 20 Smoking pack-years: 20.00 Smoking status: Current every day smoker Tobacco type: cigarettes Alcohol intake: current Drinks per week: 3 Substance use: current Substance use type: marijuana Last use: PROBABLY ABOUT A WEEK AGOago Lack of Transportation: No Lack of Food: Never True Current Housing: I Have Housing Concerned About Future Housing: No Difficulty Paying Gas/Electric Bills: No Difficulty Paying for Meds: No Currently Unemployed: No Education: High School Diploma/GED Difficulty w/ Childcare or Family Care: No Living arrangements: alone Gender identity (if verbalized by the patient): Male Sexual Orientation (if Verbalized by the Patient): Straight or Heterosexual Spiritual care concerns: No Meds Home Medications and Allergies Home Medications Medication Instructions Recorded Confirmed Type omeprazole 20 mg capsule,delayed 20 mg PO DAILY #14 caps 09/17/21 04/05/23 Rx release ondansetron 4 mg disintegrating 4 mg PO Q8H PRN nausea and 09/17/21 04/05/23 Rx tablet vomiting #14 tabs apixaban 5 mg tablet (Eliquis) 5 mg PO BID 04/05/23 04/05/23 History dicyclomine 20 mg tablet 20 mg PO BID 04/05/23 04/05/23 History Allergies Allergy/AdvReac Type Severity Reaction Status Date / Time doxycycline Allergy Unknown Gastrointestinal Verified 04/05/23 02:33 Upset metoclopramide Allergy Unknown Muscle Verified 04/05/23 02:33 Spasms sulfamethoxazo
[2023-04-05] MEDS: CALCIUM GLUC 1,000 MG/NS 50 ML 1,000 MG/50 ML BAG 100 MG IVPB (17:32)
[2023-04-05 18:16] LABS: Barbiturate Screen Urine Negative (Negative); Benzodiazepines Screen Urine Negative (Negative)
[2023-04-05 18:23] LABS: Amphetamine Screen Urine Negative (Negative); Cannabinoid Screen Urine Positive (Negative); Cocaine Screen Urine Negative (Negative); Methadone Screen Urine Negative (Negative); Opiate Screen Urine Positive (Negative); Phencyclidine Screen Urine Negative (Negative)
[2023-04-05] MEDS: HYDROcodone/acetaminophen (*CRX) 5-325 MG TABLET 1 TAB PO ×2 (18:25→22:44)
[2023-04-05 19:59] VITALS: BP 136/91; PULSE 62; RESP 14; TEMP 36.9; O2SAT 99
[2023-04-05] MEDS: PANTOPRAZOLE SOD SESQUIHYDRATE 20 MG TAB PO (22:44)
[2023-04-06 06:00] VITALS: BP 146/90; PULSE 76; RESP 19; TEMP 36.8; O2SAT 100
[2023-04-06] MEDS: HYDROcodone/acetaminophen (*CRX) 5-325 MG TABLET 1 TAB PO ×2 (06:03→10:07)
[2023-04-06 06:04] LABS: Basophils Percent Auto 0.8 % (0.2-1.2); Eosinophils Absolute Auto 0.1 K/mm3 (0-0.3); Eosinophils Percent Auto 2.3 % (0-4.4); Hematocrit 31.9 % (42.0-52.0); Hemoglobin 9.7 g/dL (14.0-18.0); Immature Granulocyte Absolute 0.01 K/mm3 (0.00-0.031); Immature Granulocyte Percent A 0.2 % (0-0.5); Lymphocytes Absolute Auto 1.84 K/mm3 (0.9-3.2); Lymphocytes Percent Auto 35.6 % (18.3-44.2); Mean Corpuscular HGB Conc 30.4 g/dl (32-36); Mean Corpuscular Hemoglobin 24.6 pg (26-34); Mean Platelet Volume 9.8 fl (7.4-10.4); Monocytes Absolute Auto 0.8 K/mm3 (0.1-0.6); Monocytes Percent Auto 14.7 % (2.6-8.5); Neutrophils Absolute Auto 2.4 K/mm3 (1.3-6.7); Neutrophils Percent Auto 46.4 % (45.5-73.1); Platelet Count Result 275 k/mm3 (150-375); Red Blood Count 3.94 M/mm3 (4.6-6.20); White Blood Count 5.2 K/mm3 (4.5-10.0)
[2023-04-06 06:12] LABS: Anion Gap 4 mmol/L (8-16); Blood Urea Nitrogen 5 mg/dL (9-20); Calcium 8.4 mg/dL (8.4-10.2); Carbon Dioxide 26 mmol/L (22-30); Chloride 110 mmol/L (98-107); Estimated CRCL calculation 109 ml/min; Estimated Glomerular Filt Rate > 60; Glucose 77 mg/dL (65-110); Magnesium 2.3 mg/dL (1.6-2.3); Potassium 3.7 mmol/L (3.4-5.0); Sodium 140 mmol/L (137-145)
[2023-04-06] MEDS: DICYCLOMINE HCL 10 MG CAPSULE 20 MG PO (10:06)
[2023-04-06] MEDS: PANTOPRAZOLE SOD SESQUIHYDRATE 20 MG TAB PO (10:06)
[2023-04-06] MEDS: APIXABAN 5 MG TABLET PO (10:06)
--- NOTE | 2023-04-06 13:23 | PM.DS ---
DS: Admitting Diagnosis Discharge Date 04/06/23 Admitting Diagnosis abdominal pain, n/v DS: Discharge Diagnosis Discharge Diagnosis Plan 1. Acute pancreatitis Lipase has normalized Stop IV Dilaudid.? Patient is already demonstrating opioid seeking behavior Pain control with p.o. [place] 5 mg q.4 Full liquid diet as tolerated Replete electrolytes, calcium needed to be repleted today Recheck CBC and BMP and magnesium tomorrow Patient should follow-up with outpatient GI doctor regarding evaluation and diagnosis Follow-up urine drug screen GI meds include dicyclomine p.o., Protonix b.i.d. , Zofran p.r.n., and anything else this patient needs 04/06: resolved. pt tolerating CLD. Taking opioids atc. Opioid seeking behavior observed. I will not dc this pt on opioids. Urine drug screen only positive for cannabis. The opioid + is because of hospital prescription He has f/u with outpt GI 2. History of kidney infarction Continue Eliquis 5 mg twice a day Full code Med surg Currently obs but may become an inpatient About 1 hour spent evaluating and doing this admission DS: Summary Hospital Course Reason for hospitalization: acute pancreatitis Hospital Course: See above in dc plan Status at Discharge Cognitive/behavioral status at discharge: Good, Normal Time Spent with Patient Time attestation: Total time spent providing and/or coordinating discharge services: 30 min Exam Narrative: GENERAL:? Patient appears uncomfortable and in pain.? Diaphoretic.? HEAD: Normocephalic, atraumatic. EYES: PERRLA and EOMI. ENT: Nares clear, no rhinorrhea or epistaxis. Mucous membranes moist. NECK: Supple. CHEST: Clear to auscultation. No respiratory distress. HEART: Regular rate and rhythm. No murmur heard. Normal peripheral pulses. ABDOMEN:? Quiet bowel sounds.? Abdomen soft her tenderness in the epigastrium.? No guarding, rebound or rigidity.? No CVA tenderness.? No overlying skin changes. EXTREMITIES: Normal range of motion. No edema. SKIN: Warm, no rash.? Patient diaphoretic. NEURO: No focal deficits. Alert and oriented x3 DS: Data Data Completed and Pending Labs on day of discharge: Labs from last 24 hours 04/06/23 04/05/23 05:39 17:35 WBC 5.2 RBC 3.94 L Hgb 9.7 L Hct 31.9 L MCV 81.0 MCH 24.6 L MCHC 30.4 L RDW 18.0 H Plt Count 275 MPV 9.8 Immature Gran % (Auto) 0.2 Neut % (Auto) 46.4 Lymph % (Auto) 35.6 [place] % (Auto) 14.7 H Eos % (Auto) 2.3 Baso % (Auto) 0.8 Lymph # (Auto) 1.84 [place] # (Auto) 0.8 H Eos # (Auto) 0.1 Baso # (Auto) 0.0 Abs Immat Gran (auto) 0.01 Absolute Neuts (auto) 2.4 Absolute Nucleated RBC 0.0 Nucleated RBC % 0.0 Sodium 140 Potassium 3.7 Chloride 110 H Carbon Dioxide 26 Anion Gap 4 L BUN 5 L Creatinine 0.80 Estim Creat Clear Calc 109 Estimated GFR > 60 Glucose 77 Calcium 8.4 Magnesium 2.3 Urine Opiates Screen Positive A Urine Methadone Screen Negative Ur Barbiturates Screen Negative Ur Phencyclidine Scrn Negative Ur Amphetamine Screen Negative U Benzodiazepines Scrn Negative Urine Cocaine Screen Negative U Cannabinoids Screen Positive A Preliminary micro results at discharge 04/05/23 05:46 Blood Culture - Preliminary Blood 04/05/23 05:48 Blood Culture - Preliminary Blood Imaging Radiologist's impression: CT neg 04/04 IMPRESSION: 1. No CT correlate for the patient's symptoms. 2. Nonobstructing right nephrolithiasis. Discharge Plan Discharge Attending physician on discharge: Jimbo Tim Discharging Clinician: Jimbo Tim Patient Disposition: Home, Self-Care Activity: unlimited Diet: as tolerated Patient Instructions: Antibiotic Form Stand Alone Forms: General Discharge Information Follow-up/Referrals: John,Td eLwis MD [Primary Care Provider] - 1 Week Discharge Medications: Continued omeprazole 20 mg capsule,delayed release(DR/EC) 20
== END 2023-04-06 14:09 | disposition home or self-care (01) ==
LOC: ANHED 04-05 00:56 → ANH3MED 04-06 13:29
PROVIDERS: Emergency Medicine; Internal Medicine; Admitting Provider Internal Medicine; Emergency Provider Physician Assistant; PCP Family Medicine; Visit Provider Internal Medicine
DX: K86.1 Other chronic pancreatitis (principal); N28.0 Ischemia and infarction of kidney; R11.15 Cyclical vomiting syndrome unrelated to migraine; Z90.49 Acquired absence of other specified parts of digestive tract; F41.9 Anxiety disorder, unspecified; F32.A Depression, unspecified; Z20.822 Contact with and (suspected) exposure to COVID-19; R94.31 Abnormal electrocardiogram [ECG] [EKG]; K21.9 Gastro-esophageal reflux disease without esophagitis; N20.0 Calculus of kidney; I10 Essential (primary) hypertension; K51.90 Ulcerative colitis, unspecified, without complications; F17.210 Nicotine dependence, cigarettes, uncomplicated; F10.90 Alcohol use, unspecified, uncomplicated; F12.90 Cannabis use, unspecified, uncomplicated; Z79.01 Long term (current) use of anticoagulants; Z79.899 Other long term (current) drug therapy
CPT/HCPCS: 36415; 71045; 74177; 80048; 80053; 80307; 81003; 83605; 83690; 83735; 84484; 85025; 87040; 87637; 93005; 96361; 96365; 96374; 96375; 96376; 99285; A9270; C9113; G0378; G0379; J0612; J1170; J1885; J2060; J2405; J7030; Q9967

== ENCOUNTER 2023-04-08 12:20 | Emergency (ER) | payer OTHER, SELFPAY ==
[2023-04-08] VITALS (7 sets, daily range): BP systolic 108–160; BP diastolic 69–116; PULSE 57–75; RESP 15–19; TEMP 36.2; O2SAT 97–100
--- NOTE | ~2023-04-08 | CT_ITS ---
EXAMINATION: CT abdomen pelvis w con DATE: 04/08/2023 18:23 INDICATION: abdominal pain TECHNIQUE: Computed tomography (CT) of the abdomen and pelvis was performed with 100 mL Omnipaque-350 intravenous contrast. Automated exposure control and iterative reconstruction technique were employe d. The dose-length product was 320.98 mGy-cm. COMPARISON: 04/04/2023. FINDINGS: Lower thorax: Unremarkable Liver: Normal. Biliary/Gallbladder: Gallbladder is absent. No bile duct dilation. Pneumobilia. Pancreas: No mass or duct dilation. Spleen: Normal. Adrenals:No mass. Kidneys: No suspicious mass, obstructing stone, or hydronephrosis. Punctate nonobstructing right lowe r pole calculus. GI tract: Mild distal esophageal and gastric wall edema. Mild colonic wall edema from the hepatic fle xure to the rectum. No small or large bowel dilation. Normal appendix. Mesentery/Peritoneum: No ascites, mass, or free air. Retroperitoneum: No mass. Atherosclerotic abdominal aortic and/or arterial calcifications. Pelvis: Urinary bladder wall thickening in a partially distended bladder.. Soft Tissues: Soft tissues and body wall unremarkable. Bones: No acute osseous finding. IMPRESSION: Mild esophagitis/gastritis. Infectious, inflammatory or ischemic colitis involving large bowel from the hepatic flexure to the re ctum. Cystitis versus bladder wall thickening from incomplete distention Reviewed, dictated and finalized at location K. O VISUAL FACILITIES ENGINEER IMPRESSION: Mild esophagitis/gastritis. Infectious, inflammatory or ischemic colitis involving large bowel from the hep atic flexure to the rectum. Cystitis versus bladder wall thickening from incomplete distention
[2023-04-08 12:52] LABS: Basophils Absolute Auto 0.1 K/mm3 (0.0-0.1); Basophils Percent Auto 0.5 % (0.2-1.2); Eosinophils Absolute Auto 0.1 K/mm3 (0-0.3); Eosinophils Percent Auto 0.8 % (0-4.4); Hematocrit 38.9 % (42.0-52.0); Hemoglobin 12.3 g/dL (14.0-18.0); Immature Granulocyte Absolute 0.03 K/mm3 (0.00-0.031); Immature Granulocyte Percent A 0.3 % (0-0.5); Lymphocytes Absolute Auto 1.75 K/mm3 (0.9-3.2); Lymphocytes Percent Auto 16.9 % (18.3-44.2); Mean Corpuscular HGB Conc 31.6 g/dl (32-36); Mean Corpuscular Hemoglobin 24.9 pg (26-34); Mean Corpuscular Volume 78.9 fl (80-100); Mean Platelet Volume 9.4 fl (7.4-10.4); Monocytes Absolute Auto 1.2 K/mm3 (0.1-0.6); Monocytes Percent Auto 11.1 % (2.6-8.5); Neutrophils Absolute Auto 7.3 K/mm3 (1.3-6.7); Neutrophils Percent Auto 70.4 % (45.5-73.1); Platelet Count Result 368 k/mm3 (150-375); Red Blood Count 4.93 M/mm3 (4.6-6.20); Red Cell Distribution Width 18.8 % (11.5-14.5); White Blood Count 10.4 K/mm3 (4.5-10.0)
[2023-04-08 13:02] LABS: Alanine Aminotransferase 29 U/L (6-50); Albumin Level 4.2 g/dL (3.5-5.1); Alkaline Phosphatase 95 U/L (38-126); Anion Gap 11 mmol/L (8-16); Aspartate Amino Transferase 26 U/L (17-59); Bilirubin,Total 0.6 mg/dL (0.2-1.3); Blood Urea Nitrogen 6 mg/dL (9-20); Carbon Dioxide 22 mmol/L (22-30); Chloride 107 mmol/L (98-107); Estimated Glomerular Filt Rate > 60; Glucose 126 mg/dL (65-110); Lipase 84 U/L (23-300); Potassium 3.6 mmol/L (3.4-5.0); Sodium 140 mmol/L (137-145)
[2023-04-08 13:05] LABS: Appearance Urine Turbid (Clear); Bacteria Urine None Seen /hpf; Bilirubin Urine Negative (Negative); Blood Urine Negative (Negative); Color Urine Yellow (Yellow); Glucose Urine UA Negative (Negative); Ketones Urine Negative (Negative); Leukocyte Esterase Ur Negative LEU/UL (Negative); Nitrate Urine Negative (Negative); Non Pathogenic Casts 0-2; Protein Urine Negative (Negative); RBC Urine 0-2 /hpf (0-2); Specific Grav Ur 1.016 (1.001-1.035); Squamous Epithelial Cell Urine None seen /hpf (Few); WBC Urine 0-5 /hpf
[2023-04-08 13:12] LABS: Add Urine Microscopic? YES
--- NOTE | 2023-04-08 14:25 | ED.ABDPAIN ---
HPI - Abdominal Pain General Chief Complaint: Abdominal Pain Stated Complaint: ab pain, vomiting Time Seen by Provider: 04/08/23 14:21 History of Present Illness HPI narrative: Patient is a 42-year-old male with history of chronic pancreatitis, well known to this emergency department for multiple visits for abdominal pain here with abdominal pain. He states that the abdominal pain began this morning and is located in his epigastric region. He endorses that it is severe and seem to worsen after having a bowel movement this morning. He has tried nothing at home for the pain. He tried a sip some water at home but he immediately threw this up. He denies any fever chills. Denies any trauma. He did have a normal nonbloody bowel movement this morning. He notes that the pain feels very similar to the last time he was here in the hospital and his other multiple prior visits. Requesting pain medication. Related Data Home Medications Medication Instructions Recorded Confirmed apixaban 5 mg tablet (Eliquis) 5 mg PO BID 04/05/23 04/05/23 dicyclomine 20 mg tablet 20 mg PO BID 04/05/23 04/05/23 Allergies Allergy/AdvReac Type Severity Reaction Status Date / Time doxycycline Allergy Unknown Gastrointestinal Verified 04/08/23 12:20 Upset metoclopramide Allergy Unknown Muscle Verified 04/08/23 12:20 Spasms sulfamethoxazole Allergy Unknown Gastrointestinal Verified 04/08/23 12:20 Upset trimethoprim Allergy Unknown Gastrointestinal Verified 04/08/23 12:20 Upset haloperidol [From Haldol] AdvReac Mild Muscle Verified 04/08/23 12:20 Spasms Sulfa (Sulfonamide AdvReac Gastrointestinal Verified 04/08/23 12:20 Antibiotics) Upset Review of Systems Review of Systems: All systems reviewed & are unremarkable except as noted in HPI and below PMFSH Past Medical History Medical History (Updated 04/08/23 @ 20:54 by Annmarie Nunez MD) Anxiety Chronic pancreatitis Colitis Cyclic vomiting syndrome Cyclical vomiting Depression Gastroenteritis GERD (gastroesophageal reflux disease) Hypertension IBD (inflammatory bowel disease) Kidney infarction Kidney stones Pancreatitis Surgical History Surgical History Hx of cholecystectomy Family History Family History Grandparent Acute myocardial infarction Social History Social History Smoking packs per day: 1 Smoking cigarettes per day: 20.0 Years smoked: 20 Smoking pack-years: 20.00 Smoking status: Current every day smoker Tobacco type: cigarettes Alcohol intake: current Drinks per week: 3 Substance use: current Substance use type: marijuana Last use: PROBABLY ABOUT A WEEK AGOago Lack of Transportation: No Lack of Food: Never True Current Housing: I Have Housing Concerned About Future Housing: No Difficulty Paying Gas/Electric Bills: No Difficulty Paying for Meds: No Currently Unemployed: No Education: High School Diploma/GED Difficulty w/ Childcare or Family Care: No Living arrangements: alone Gender identity (if verbalized by the patient): Male Sexual Orientation (if Verbalized by the Patient): Straight or Heterosexual Spiritual care concerns: No Exam Narrative: GENERAL: Well-appearing, well-nourished, and in no acute distress. HEAD: Normocephalic, atraumatic. EYES: PERRLA and EOMI. ENT: Nares clear. Mucous membranes moist. NECK: Supple. CHEST: Clear to auscultation. No respiratory distress. HEART: Regular rate and rhythm. Normal peripheral pulses. ABDOMEN: Soft, distractible right upper quadrant guarding however minimal tenderness when talking/distracted. EXTREMITIES: Normal range of motion. No edema. SKIN: Warm, dry, no rash. NEURO: No focal deficits. Alert and oriented x3. PSYCH: Normal mood and affect. Course Course E
[2023-04-08] MEDS: SODIUM CHLORIDE 0.9% IV 1,000 ML 999 ML IV CONT (14:58)
[2023-04-08] MEDS: ONDANSETRON INJ 4 MG/2 ML VIAL IV PUSH (14:58)
[2023-04-08] MEDS: diphenhydrAMINE HCl INJ 50 MG/ML VIAL 25 MG IV PUSH (15:26)
[2023-04-08] MEDS: PANTOPRAZOLE SODIUM IV 40 MG VIAL IV PUSH (15:26)
[2023-04-08] MEDS: KETOROLAC 15 MG/ML VIAL (*BKC) IV PUSH (15:26)
[2023-04-08] MEDS: HYDROcodone/acetaminophen (*CRX) 5-325 MG TABLET 1 TAB PO (17:39)
[2023-04-08] MEDS: PROCHLORPERAZINE EDISYLATE 10 MG/2 ML VIAL IV PUSH (18:27)
[2023-04-08 19:45] LABS: Lactic Acid Reflex 0.8 mmol/L (0.7-2.0)
== END 2023-04-08 21:46 | disposition home or self-care (01) ==
PROVIDERS: Emergency Provider Student in an Organized Health Care Education/Training Program; PCP Family Medicine
DX: R10.13 Epigastric pain (principal); I10 Essential (primary) hypertension; F17.210 Nicotine dependence, cigarettes, uncomplicated; Z79.01 Long term (current) use of anticoagulants
CPT/HCPCS: 36415; 74177; 80053; 81001; 83605; 83690; 85025; 96361; 96374; 96375; 99284; A9270; C9113; J0780; J1200; J1885; J2405; J7030; Q9967

== ENCOUNTER 2023-05-22 21:46 | Emergency (ER) | payer OTHER, SELFPAY ==
--- NOTE | ~2023-05-22 | CT_ITS ---
EXAMINATION: CT abdomen pelvis w con INDICATION: Abdominal pain TECHNIQUE: Computed tomographic images of the abdomen and pelvis were obtained after the administrati on of 100 cc of Omnipaque 350 intravenous contrast. The dose-length product (DLP) was 364.20 mGy-cm. Automated exposure control and iterative reconstruction technique were employed. COMPARISON: 04/08/2023 FINDINGS: The lung bases are clear. The heart size is normal. The gallbladder is surgically absent. T here is mild enlargement of the common bile duct and central intrahepatic ducts which is likely due t o post cholecystectomy state. The liver, spleen, pancreas, and adrenal glands are normal. A 6 mm hypo attenuating lesion of the right kidney is too small to characterize but likely represents a cyst. The re is a 3 mm nonobstructing stone of the right kidney lower pole. Again noted are volume loss and cor tical scarring in the right kidney lower pole. The left kidney is unremarkable. No pathologically enl arged abdominal or pelvic lymph nodes are identified. No free intraperitoneal gas or evidence of cass l obstruction. The appendix is normal. There is possible mild wall thickening at the hepatic flexure of the colon. There is a small umbilical hernia containing fat. IMPRESSION: 1. Possible mild wall thickening of the hepatic flexure of colon, consistent with incomplete distenti on versus mild colitis. Reviewed, dictated and finalized at location F. BUILDER IMPRESSION: 1. Possible mild wall thickening of the hepatic flexure of colon, consistent wi th incomplete distention versus mild colitis.
[2023-05-22 21:48] VITALS: BP 173/97; PULSE 94; RESP 16; TEMP 36.6; O2SAT 97
--- NOTE | 2023-05-22 21:58 | PC.NURSE ---
Attempted blood in triage x 2 without success. Pt moving during blood draw.
[2023-05-22 22:41] VITALS: BP 155/107; PULSE 82; RESP 18; O2SAT 100
[2023-05-22 23:08] LABS: Basophils Absolute Auto 0.1 K/mm3 (0.0-0.1); Basophils Percent Auto 0.3 % (0.2-1.2); Eosinophils Percent Auto 0.1 % (0-4.4); Hematocrit 39.5 % (42.0-52.0); Hemoglobin 12.1 g/dL (14.0-18.0); Immature Granulocyte Absolute 0.08 K/mm3 (0.00-0.031); Immature Granulocyte Percent A 0.4 % (0-0.5); Lymphocytes Absolute Auto 1.76 K/mm3 (0.9-3.2); Lymphocytes Percent Auto 8.5 % (18.3-44.2); Mean Corpuscular HGB Conc 30.6 g/dl (32-36); Mean Corpuscular Hemoglobin 24.8 pg (26-34); Mean Corpuscular Volume 80.9 fl (80-100); Mean Platelet Volume 9.8 fl (7.4-10.4); Monocytes Absolute Auto 1.7 K/mm3 (0.1-0.6); Monocytes Percent Auto 8.1 % (2.6-8.5); Neutrophils Percent Auto 82.6 % (45.5-73.1); Platelet Count Result 351 k/mm3 (150-375); Red Blood Count 4.88 M/mm3 (4.6-6.20); Red Cell Distribution Width 17.2 % (11.5-14.5); White Blood Count 20.7 K/mm3 (4.5-10.0)
[2023-05-22 23:21] LABS: Alanine Aminotransferase 21 U/L (6-50); Albumin Level 4.4 g/dL (3.5-5.1); Alkaline Phosphatase 104 U/L (38-126); Anion Gap 13 mmol/L (8-16); Aspartate Amino Transferase 30 U/L (17-59); Bilirubin,Total 0.5 mg/dL (0.2-1.3); Blood Urea Nitrogen 9 mg/dL (9-20); Calcium 9.4 mg/dL (8.4-10.2); Carbon Dioxide 22 mmol/L (22-30); Chloride 106 mmol/L (98-107); Estimated CRCL calculation 98 ml/min; Estimated Glomerular Filt Rate > 60; Glucose 123 mg/dL (65-110); Lipase 118 U/L (23-300); Potassium 3.8 mmol/L (3.4-5.0); Sodium 141 mmol/L (137-145)
[2023-05-22 23:31] LABS: Anisocytosis 1+ (NORMAL); Platelet Estimate Adequate (Adequate); Schistocytes Rare (NORMAL); Target Cells 1+ (NORMAL)
[2023-05-22 23:32] LABS: Ovalocytes 1+ (NORMAL)
[2023-05-22] MEDS: FAMOTIDINE 20 MG/2 ML VIAL IV PUSH (23:45)
[2023-05-22] MEDS: ONDANSETRON INJ 4 MG/2 ML VIAL IV PUSH (23:47)
[2023-05-22] MEDS: SODIUM CHLORIDE 0.9% IV 1,000 ML 999 ML IV CONT (23:51)
[2023-05-22] MEDS: KETOROLAC 15 MG/ML VIAL (*BKC) IV PUSH (23:51)
[2023-05-22 23:52] LABS: Appearance Urine Cloudy (Clear); Bacteria Urine None Seen /hpf; Bilirubin Urine Negative (Negative); Blood Urine Negative (Negative); Color Urine Yellow (Yellow); Glucose Urine UA Negative (Negative); Ketones Urine Trace mg/dL (Negative); Leukocyte Esterase Ur Negative LEU/UL (Negative); Nitrate Urine Negative (Negative); Non Pathogenic Casts 0-2; Protein Urine Trace mg/dL (Negative); RBC Urine 0-2 /hpf (0-2); Specific Grav Ur 1.016 (1.001-1.035); Squamous Epithelial Cell Urine None seen /hpf (Few); Urobilinogen Urine 0.2 mg/dL (<2.0); WBC Urine 0-5 /hpf
[2023-05-22 23:55] LABS: Add Urine Microscopic? YES
[2023-05-23 00:06] LABS: Amphetamine Screen Urine Negative (Negative); Barbiturate Screen Urine Negative (Negative); Benzodiazepines Screen Urine Negative (Negative); Cannabinoid Screen Urine Positive (Negative); Cocaine Screen Urine Negative (Negative); Methadone Screen Urine Negative (Negative); Opiate Screen Urine Negative (Negative); Phencyclidine Screen Urine Negative (Negative)
[2023-05-23 01:22] VITALS: BP 113/64; PULSE 65; RESP 17; O2SAT 100
--- NOTE | 2023-05-23 02:40 | ED.GENADULT ---
HPI - General Adult General Chief complaint: Abdominal Pain Stated complaint: abd pain, N/V Time Seen by Provider: 05/22/23 22:45 History of Present Illness HPI narrative: This is a 42-year-old male who is well known to our emergency department for chronic abdominal pain presenting abdominal pain. Patient says pain started this afternoon. It is diffuse. He describes it as a burning/stabbing/cramping feeling. He has had this many times in the past. Patient also has nausea and vomiting. Patient is still using marijuana although it has been recommended innumerable times to quit using. Patient is requesting opiate pain medication saying that is the only thing that helps. Related Data Home Medications Medication Instructions Recorded Confirmed apixaban 5 mg tablet (Eliquis) 5 mg PO BID 04/05/23 04/05/23 dicyclomine 20 mg tablet 20 mg PO BID 04/05/23 04/05/23 Allergies Allergy/AdvReac Type Severity Reaction Status Date / Time doxycycline Allergy Unknown Gastrointestinal Verified 05/22/23 22:47 Upset metoclopramide Allergy Unknown Muscle Verified 05/22/23 22:47 Spasms sulfamethoxazole Allergy Unknown Gastrointestinal Verified 05/22/23 22:47 Upset trimethoprim Allergy Unknown Gastrointestinal Verified 05/22/23 22:47 Upset haloperidol [From Haldol] AdvReac Mild Muscle Verified 05/22/23 22:47 Spasms Sulfa (Sulfonamide AdvReac Gastrointestinal Verified 05/22/23 22:47 Antibiotics) Upset PMFSH Past Medical History Medical History Anxiety Chronic pancreatitis Colitis Cyclic vomiting syndrome Cyclical vomiting Depression Gastroenteritis GERD (gastroesophageal reflux disease) Hypertension IBD (inflammatory bowel disease) Kidney infarction Kidney stones Pancreatitis Surgical History Surgical History Hx of cholecystectomy Family History Family History Grandparent Acute myocardial infarction Social History Social History Smoking packs per day: 1 Smoking cigarettes per day: 20.0 Years smoked: 20 Smoking pack-years: 20.00 Smoking status: Current every day smoker Tobacco type: cigarettes Alcohol intake: current Drinks per week: 3 Substance use: current Substance use type: marijuana Last use: PROBABLY ABOUT A WEEK AGOago Lack of Transportation: No Lack of Food: Never True Current Housing: I Have Housing Concerned About Future Housing: No Difficulty Paying Gas/Electric Bills: No Difficulty Paying for Meds: No Currently Unemployed: No Education: High School Diploma/GED Difficulty w/ Childcare or Family Care: No Living arrangements: alone Gender identity (if verbalized by the patient): Male Sexual Orientation (if Verbalized by the Patient): Straight or Heterosexual Spiritual care concerns: No Exam Narrative: APPEARANCE: Patient is moaning and rocking back forth through the interview. Head: atraumatic. EYES: EOMI, NOSE: Atraumatic NECK: Trachea midline RESPIRATORY: No increased rate of breathing CARDIOVASCULAR: RRR, ABDOMINAL: Non-distended soft nontender with no guarding or rebound MUSCULOSKELETAl: No obvious deformities NEURO: Alert. Moving 4/4 extremities SKIN:: Warm, dry. Normal color PSYCHIATRIC: Normal affect Course Vital Signs Vital signs: Vital Signs Temperature 97.8 F 05/22/23 21:48 Pulse Rate 94 05/22/23 21:48 Respiratory Rate 16 05/22/23 21:48 Blood Pressure 173/97 H 05/22/23 21:48 Pulse Oximetry 97 05/22/23 21:48 Oxygen Delivery Room Air 05/22/23 21:48 Temperature 97.8 F 05/22/23 21:48 Pulse Rate 65 05/23/23 01:22 Respiratory Rate 17 05/23/23 01:22 Blood Pressure 113/64 05/23/23 01:22 Pulse Oximetry 100 05/23/23 01:22 Oxygen Delivery Room Air
[2023-05-23] MEDS: diphenhydrAMINE HCl INJ 50 MG/ML VIAL 25 MG IV PUSH (05:58)
[2023-05-23] MEDS: PROCHLORPERAZINE EDISYLATE 10 MG/2 ML VIAL IV PUSH (05:58)
[2023-05-23 06:03] VITALS: BP 166/102; PULSE 73; RESP 18; O2SAT 100
== END 2023-05-23 06:10 | disposition home or self-care (01) ==
PROVIDERS: Emergency Provider Emergency Medicine; PCP Family Medicine
DX: R10.9 Unspecified abdominal pain (principal); Z76.5 Malingerer [conscious simulation]; I10 Essential (primary) hypertension; K86.1 Other chronic pancreatitis; K21.9 Gastro-esophageal reflux disease without esophagitis; K58.9 Irritable bowel syndrome, unspecified; F17.210 Nicotine dependence, cigarettes, uncomplicated; Z87.442 Personal history of urinary calculi; Z90.49 Acquired absence of other specified parts of digestive tract; R93.3 Abnormal findings on diagnostic imaging of other parts of digestive tract
CPT/HCPCS: 36415; 74177; 80053; 80307; 81001; 83690; 85025; 96361; 96374; 96375; 99284; J0780; J1200; J1885; J2405; J7030; Q9967

== ENCOUNTER 2023-07-08 17:42 | Emergency (ER) | payer OTHER, SELFPAY ==
[2023-07-08 18:08] VITALS: BP 130/81; PULSE 95; RESP 18; TEMP 36.6; O2SAT 100
[2023-07-08 20:01] LABS: Basophils Percent Auto 0.2 % (0.2-1.2); Hematocrit 37.4 % (42.0-52.0); Hemoglobin 11.7 g/dL (14.0-18.0); Immature Granulocyte Absolute 0.04 K/mm3 (0.00-0.031); Immature Granulocyte Percent A 0.3 % (0-0.5); Lymphocytes Absolute Auto 0.97 K/mm3 (0.9-3.2); Lymphocytes Percent Auto 7.7 % (18.3-44.2); Mean Corpuscular HGB Conc 31.3 g/dl (32-36); Mean Corpuscular Hemoglobin 24.8 pg (26-34); Mean Corpuscular Volume 79.2 fl (80-100); Mean Platelet Volume 10.1 fl (7.4-10.4); Monocytes Absolute Auto 0.6 K/mm3 (0.1-0.6); Monocytes Percent Auto 4.5 % (2.6-8.5); Neutrophils Percent Auto 87.3 % (45.5-73.1); Platelet Count Result 380 k/mm3 (150-375); Red Blood Count 4.72 M/mm3 (4.6-6.20); Red Cell Distribution Width 16.9 % (11.5-14.5); White Blood Count 12.6 K/mm3 (4.5-10.0)
[2023-07-08 20:10] LABS: Appearance Urine Clear (Clear); Bacteria Urine None Seen /hpf; Bilirubin Urine Negative (Negative); Blood Urine Negative (Negative); Color Urine Yellow (Yellow); Glucose Urine UA Negative (Negative); Ketones Urine 2+ mg/dL (Negative); Leukocyte Esterase Ur Negative LEU/UL (Negative); Nitrate Urine Negative (Negative); Non Pathogenic Casts 0-2; Protein Urine Trace mg/dL (Negative); RBC Urine 0-2 /hpf (0-2); Squamous Epithelial Cell Urine None seen /hpf (Few); Urobilinogen Urine 0.2 mg/dL (<2.0); WBC Urine 0-5 /hpf; pH Urine 7.5 (5.0-9.0)
[2023-07-08] MEDS: diphenhydrAMINE HCl INJ 50 MG/ML VIAL IV PUSH (20:11)
[2023-07-08] MEDS: KETOROLAC 30 MG/ML VIAL (*BKC) 15 MG IV PUSH (20:11)
[2023-07-08] MEDS: SODIUM CHLORIDE 0.9% IV 1,000 ML 999 ML IV CONT ×2 (20:11→20:12)
[2023-07-08] MEDS: FAMOTIDINE 20 MG/2 ML VIAL IV PUSH (20:11)
[2023-07-08] MEDS: PROCHLORPERAZINE EDISYLATE 10 MG/2 ML VIAL IV PUSH (20:11)
[2023-07-08 20:15] LABS: Alanine Aminotransferase 23 U/L (6-50); Albumin Level 4.6 g/dL (3.5-5.1); Alkaline Phosphatase 89 U/L (38-126); Anion Gap 7 mmol/L (8-16); Aspartate Amino Transferase 33 U/L (17-59); Bilirubin,Total 0.9 mg/dL (0.2-1.3); Blood Urea Nitrogen 8 mg/dL (9-20); Calcium 9.6 mg/dL (8.4-10.2); Carbon Dioxide 24 mmol/L (22-30); Chloride 107 mmol/L (98-107); Estimated CRCL calculation 108 ml/min; Estimated Glomerular Filt Rate > 60; Glucose 104 mg/dL (65-110); Lipase 133 U/L (23-300); Potassium 4.6 mmol/L (3.4-5.0); Sodium 138 mmol/L (137-145)
[2023-07-08 20:19] VITALS: BP 149/92; PULSE 77; RESP 15; TEMP 36.9; O2SAT 99
--- NOTE | 2023-07-08 20:31 | ED.GENADULT ---
HPI - General Adult General Chief complaint: Abdominal Pain Stated complaint: abd pain/vomiting Time Seen by Provider: 07/08/23 19:45 History of Present Illness HPI narrative: patient is a 43-year-old gentleman who presents emergency department with chief complaint of abdominal pain. Patient reports that he has prior history of chronic pancreatitis and has chronic abdominal pain the patient has been seen in multiple emergency departments around the region for similar complaints and the patient reports he was seen this morning and they will fill reports that he had a CT scan that did not show any acute abnormalities but he continues to have pain. Related Data Home Medications Medication Instructions Recorded Confirmed apixaban 5 mg tablet (Eliquis) 5 mg PO BID 04/05/23 04/05/23 dicyclomine 20 mg tablet 20 mg PO BID 04/05/23 04/05/23 Allergies Allergy/AdvReac Type Severity Reaction Status Date / Time doxycycline Allergy Unknown Gastrointestinal Verified 05/22/23 22:47 Upset metoclopramide Allergy Unknown Muscle Verified 05/22/23 22:47 Spasms sulfamethoxazole Allergy Unknown Gastrointestinal Verified 05/22/23 22:47 Upset trimethoprim Allergy Unknown Gastrointestinal Verified 05/22/23 22:47 Upset haloperidol [From Haldol] AdvReac Mild Muscle Verified 05/22/23 22:47 Spasms Sulfa (Sulfonamide AdvReac Gastrointestinal Verified 05/22/23 22:47 Antibiotics) Upset Review of Systems Review of Systems: A 10 system review of systems was completed on the patient and is negative except for what is stated in the HPI. Nursing and ancillary documentation was reviewed. [facility] Past Medical History Medical History Anxiety Chronic pancreatitis Colitis Cyclic vomiting syndrome Cyclical vomiting Depression Gastroenteritis GERD (gastroesophageal reflux disease) Hypertension IBD (inflammatory bowel disease) Kidney infarction Kidney stones Pancreatitis Surgical History Surgical History Hx of cholecystectomy Family History Family History Grandparent Acute myocardial infarction Social History Social History Smoking packs per day: 1 Smoking cigarettes per day: 20.0 Years smoked: 20 Smoking pack-years: 20.00 Smoking status: Current every day smoker Tobacco type: cigarettes Alcohol intake: current Drinks per week: 3 Substance use: current Substance use type: marijuana Last use: PROBABLY ABOUT A WEEK AGOago Lack of Transportation: No Lack of Food: Never True Current Housing: I Have Housing Concerned About Future Housing: No Difficulty Paying Gas/Electric Bills: No Difficulty Paying for Meds: No Currently Unemployed: No Education: High School Diploma/GED Difficulty w/ Childcare or Family Care: No Living arrangements: alone Gender identity (if verbalized by the patient): Male Sexual Orientation (if Verbalized by the Patient): Straight or Heterosexual Spiritual care concerns: No Exam Narrative: GENERAL: Well-appearing, Moaning and rocking back and forth HEAD: Normocephalic, atraumatic. EYES: PERRLA and EOMI. ENT: Nares clear, no rhinorrhea or epistaxis. Mucous membranes moist. NECK: Supple. CHEST: Clear to auscultation. No respiratory distress. HEART: Regular rate and rhythm. No murmur heard. Normal peripheral pulses. ABDOMEN: Soft, nontender, nondistended, normal active bowel sounds. EXTREMITIES: Normal range of motion. No edema. SKIN: Warm, dry, no rash. NEURO: No focal deficits. Alert and oriented x3. PSYCH: Normal mood and affect. Course Vital Signs Vital signs: Vital Signs Temperature 36.6 C 07/08/23 18:08 Pulse Rate 95 07/08/23 18:08 Respiratory Rate 18 07/08
[2023-07-08 20:32] LABS: Add Urine Microscopic? YES; Specific Grav Ur 1.043 (1.001-1.035)
[2023-07-08 21:43] VITALS: BP 117/77; PULSE 71; RESP 13; O2SAT 100
--- NOTE | 2023-07-14 06:00 | PC.NURSE ---
both Normal Saline 1000mL stopped on 07/08/23 at 2215. Pt received 2000mL total of normal saline. IV removed at time of pt discharge.
== END 2023-07-08 22:15 | disposition home or self-care (01) ==
LOC: ANHED 21:30
PROVIDERS: Emergency Provider Emergency Medicine; PCP Family Medicine
DX: R10.9 Unspecified abdominal pain (principal); G89.29 Other chronic pain; K86.1 Other chronic pancreatitis; K21.9 Gastro-esophageal reflux disease without esophagitis; K58.9 Irritable bowel syndrome, unspecified; I10 Essential (primary) hypertension; Z87.442 Personal history of urinary calculi; Z90.49 Acquired absence of other specified parts of digestive tract; F17.210 Nicotine dependence, cigarettes, uncomplicated
CPT/HCPCS: 36415; 80053; 81001; 83690; 85025; 96361; 96374; 96375; 99284; J0780; J1200; J1885; J7030

== ENCOUNTER 2023-07-22 11:13 | Emergency (ER) | payer OTHER, SELFPAY ==
[2023-07-22 11:18] VITALS: BP 161/110; PULSE 78; RESP 20; TEMP 36.3; O2SAT 99
[2023-07-22 11:34] LABS: Basophils Percent Auto 0.3 % (0.2-1.2); Eosinophils Absolute Auto 0.1 K/mm3 (0-0.3); Eosinophils Percent Auto 0.9 % (0-4.4); Hematocrit 38.1 % (42.0-52.0); Hemoglobin 12.1 g/dL (14.0-18.0); Immature Granulocyte Absolute 0.08 K/mm3 (0.00-0.031); Immature Granulocyte Percent A 0.5 % (0-0.5); Lymphocytes Absolute Auto 1.65 K/mm3 (0.9-3.2); Lymphocytes Percent Auto 10.8 % (18.3-44.2); Mean Corpuscular HGB Conc 31.8 g/dl (32-36); Mean Corpuscular Hemoglobin 25.1 pg (26-34); Mean Corpuscular Volume 78.9 fl (80-100); Mean Platelet Volume 9.3 fl (7.4-10.4); Monocytes Percent Auto 6.6 % (2.6-8.5); Neutrophils Absolute Auto 12.3 K/mm3 (1.3-6.7); Neutrophils Percent Auto 80.9 % (45.5-73.1); Platelet Count Result 378 k/mm3 (150-375); Red Blood Count 4.83 M/mm3 (4.6-6.20); Red Cell Distribution Width 17.1 % (11.5-14.5); White Blood Count 15.2 K/mm3 (4.5-10.0)
[2023-07-22 11:48] LABS: Alanine Aminotransferase 19 U/L (6-50); Albumin Level 4.2 g/dL (3.5-5.1); Alkaline Phosphatase 98 U/L (38-126); Anion Gap 5 mmol/L (8-16); Aspartate Amino Transferase 24 U/L (17-59); Bilirubin,Total 0.5 mg/dL (0.2-1.3); Blood Urea Nitrogen 7 mg/dL (9-20); Calcium 9.4 mg/dL (8.4-10.2); Carbon Dioxide 24 mmol/L (22-30); Chloride 109 mmol/L (98-107); Estimated CRCL calculation 97 ml/min; Estimated Glomerular Filt Rate > 60; Glucose 131 mg/dL (65-110); Lipase 164 U/L (23-300); Sodium 138 mmol/L (137-145)
[2023-07-22] MEDS: KETOROLAC 30 MG/ML VIAL (*BKC) IV PUSH (11:59)
[2023-07-22] MEDS: diphenhydrAMINE HCl INJ 50 MG/ML VIAL 25 MG IV PUSH (11:59)
[2023-07-22] MEDS: FAMOTIDINE 20 MG/2 ML VIAL IV PUSH (11:59)
[2023-07-22] MEDS: SODIUM CHLORIDE 0.9% IV 1,000 ML 999 ML IV CONT (12:00)
[2023-07-22 12:01] LABS: Appearance Urine Turbid (Clear); Bacteria Urine None Seen /hpf; Bilirubin Urine Negative (Negative); Blood Urine Negative (Negative); Color Urine Yellow (Yellow); Glucose Urine UA Negative (Negative); Ketones Urine Negative (Negative); Leukocyte Esterase Ur Negative LEU/UL (Negative); Nitrate Urine Negative (Negative); Non Pathogenic Casts 0-2; Protein Urine Negative (Negative); RBC Urine 0-2 /hpf (0-2); Specific Grav Ur 1.016 (1.001-1.035); Squamous Epithelial Cell Urine None Seen /hpf (Few); WBC Urine 0-5 /hpf (0-3)
[2023-07-22 12:05] LABS: Add Urine Microscopic? YES
[2023-07-22] MEDS: PROCHLORPERAZINE EDISYLATE 10 MG/2 ML VIAL IV PUSH (12:08)
[2023-07-22 13:00] VITALS: BP 112/95; PULSE 87; RESP 18; O2SAT 99
--- NOTE | 2023-07-22 13:36 | ED.ABDPAIN ---
HPI - Abdominal Pain General Chief Complaint: Abdominal Pain Stated Complaint: abd pain, n/v Time Seen by Provider: 07/22/23 11:32 History of Present Illness HPI narrative: Patient is a 43-year-old male with history of cyclic vomiting syndrome and chronic pancreatitis /abdominal pain who presents the ER with both vomiting and epigastric pain. Pain ongoing since yesterday and vomiting ongoing since this morning. No fevers or chills or sweats. No improvement with Zofran home. Reports he has not been to an ER for over a month but chart review shows he was last here 2 weeks ago. He is supposed to take Creon but his insurance will not cover it. He is not called to speak with the [email or web address] insurance to figure out how this could be remedy. Related Data Home Medications Medication Instructions Recorded Confirmed apixaban 5 mg tablet (Eliquis) 5 mg PO BID 04/05/23 04/05/23 dicyclomine 20 mg tablet 20 mg PO BID 04/05/23 04/05/23 Allergies Allergy/AdvReac Type Severity Reaction Status Date / Time doxycycline Allergy Unknown Gastrointestinal Verified 07/22/23 11:22 Upset metoclopramide Allergy Unknown Muscle Verified 07/22/23 11:22 Spasms sulfamethoxazole Allergy Unknown Gastrointestinal Verified 07/22/23 11:22 Upset trimethoprim Allergy Unknown Gastrointestinal Verified 07/22/23 11:22 Upset haloperidol [From Haldol] AdvReac Mild Muscle Verified 07/22/23 11:22 Spasms Sulfa (Sulfonamide AdvReac Gastrointestinal Verified 07/22/23 11:22 Antibiotics) Upset Review of Systems Review of Systems: All systems reviewed & are unremarkable except as noted in HPI and below Constitutional: Constitutional: Reports no additional constitutional complaints ENT: Reports system reviewed and no additional complaints, except as documented Cardiovascular: Cardiovascular: Reports no additional cardiovascular complaints Respiratory: Respiratory: Reports no additional respiratory complaints Gastrointestinal: Gastrointestinal: Reports abdominal pain, Denies diarrhea, Reports nausea and Reports vomiting Genitourinary: Genitourinary: Reports no additional male genitourinary complaints PMF Past Medical History Medical History Anxiety Chronic pancreatitis Colitis Cyclic vomiting syndrome Cyclical vomiting Depression Gastroenteritis GERD (gastroesophageal reflux disease) Hypertension IBD (inflammatory bowel disease) Kidney infarction Kidney stones Pancreatitis Surgical History Surgical History Hx of cholecystectomy Family History Family History Grandparent Acute myocardial infarction Social History Social History Smoking packs per day: 1 Smoking cigarettes per day: 20.0 Years smoked: 20 Smoking pack-years: 20.00 Smoking status: Current every day smoker Tobacco type: cigarettes Alcohol intake: current Drinks per week: 3 Substance use: current Substance use type: marijuana Last use: PROBABLY ABOUT A WEEK AGOago Lack of Transportation: No Lack of Food: Never True Current Housing: I Have Housing Concerned About Future Housing: No Difficulty Paying Gas/Electric Bills: No Difficulty Paying for Meds: No Currently Unemployed: No Education: High School Diploma/GED Difficulty w/ Childcare or Family Care: No Living arrangements: alone Gender identity (if verbalized by the patient): Male Sexual Orientation (if Verbalized by the Patient): Straight or Heterosexual Spiritual care concerns: No Exam Narrative: GENERAL: Uncomfortable-appearing, well-nourished, and in no acute distress. HEAD: Normocephalic, atraumatic. EYES: PERRL and EOMI. ENT: Mucous membranes moist. CHEST: Clear to auscultation. No respiratory dist
[2023-07-22 14:00] VITALS: BP 107/86; PULSE 64; RESP 20; O2SAT 97
[2023-07-22] MEDS: BELLADONNA ALK/PHENOB ELIX 10 ML, MAG HYDROX/ALUMINUM HYD/SIMETH 30 ML, LIDOCAINE HCL 2... PO (15:04)
[2023-07-22] MEDS: DICYCLOMINE HCL INJ 20 MG/2 ML VIAL IM (15:04)
[2023-07-22] MEDS: PANTOPRAZOLE SODIUM IV 40 MG VIAL IV PUSH (16:32)
[2023-07-22 17:49] VITALS: BP 110/81; PULSE 72; RESP 17; O2SAT 98
== END 2023-07-22 17:53 | disposition home or self-care (01) ==
PROVIDERS: Emergency Provider Emergency Medicine; PCP Family Medicine
DX: R10.13 Epigastric pain (principal); G89.29 Other chronic pain; K86.1 Other chronic pancreatitis; I10 Essential (primary) hypertension; K21.9 Gastro-esophageal reflux disease without esophagitis; K58.9 Irritable bowel syndrome, unspecified; F17.210 Nicotine dependence, cigarettes, uncomplicated; Z87.442 Personal history of urinary calculi; Z90.49 Acquired absence of other specified parts of digestive tract; Z79.01 Long term (current) use of anticoagulants; Z76.5 Malingerer [conscious simulation]
CPT/HCPCS: 36415; 80053; 83690; 85025; 96361; 96372; 96374; 96375; 99284; A9270; C9113; J0500; J0780; J1200; J1885; J7030

== ENCOUNTER 2023-08-04 21:13 | Emergency (ER) | payer OTHER, SELFPAY ==
[2023-08-04 21:15] VITALS: BP 159/103; PULSE 100; RESP 18; TEMP 36.7; O2SAT 98
[2023-08-04 21:39] LABS: Basophils Percent Auto 0.2 % (0.2-1.2); Eosinophils Percent Auto 0.2 % (0-4.4); Hematocrit 38.9 % (42.0-52.0); Immature Granulocyte Absolute 0.06 K/mm3 (0.00-0.031); Immature Granulocyte Percent A 0.4 % (0-0.5); Lymphocytes Absolute Auto 1.25 K/mm3 (0.9-3.2); Lymphocytes Percent Auto 8.7 % (18.3-44.2); Mean Corpuscular HGB Conc 30.8 g/dl (32-36); Mean Corpuscular Hemoglobin 24.5 pg (26-34); Mean Corpuscular Volume 79.6 fl (80-100); Mean Platelet Volume 9.3 fl (7.4-10.4); Monocytes Percent Auto 7.1 % (2.6-8.5); Neutrophils Absolute Auto 11.9 K/mm3 (1.3-6.7); Neutrophils Percent Auto 83.4 % (45.5-73.1); Platelet Count Result 411 k/mm3 (150-375); Red Blood Count 4.89 M/mm3 (4.6-6.20); Red Cell Distribution Width 17.5 % (11.5-14.5); White Blood Count 14.3 K/mm3 (4.5-10.0)
[2023-08-04 21:49] LABS: Alanine Aminotransferase 19 U/L (6-50); Albumin Level 4.6 g/dL (3.5-5.1); Alkaline Phosphatase 96 U/L (38-126); Anion Gap 8 mmol/L (4-12); Aspartate Amino Transferase 27 U/L (17-59); Bilirubin,Total 0.7 mg/dL (0.2-1.3); Blood Urea Nitrogen 7 mg/dL (9-20); Calcium 9.5 mg/dL (8.4-10.2); Carbon Dioxide 26 mmol/L (22-30); Chloride 105 mmol/L (98-107); Estimated CRCL calculation 107 ml/min; Estimated Glomerular Filt Rate > 60; Glucose 107 mg/dL (65-110); Potassium 3.6 mmol/L (3.4-5.0); Sodium 139 mmol/L (137-145)
[2023-08-04 21:50] LABS: Lactic Acid Reflex 1.8 mmol/L (0.7-2.0)
[2023-08-04 22:13] VITALS: BP 115/81; PULSE 91; RESP 20; O2SAT 98
[2023-08-04 22:28] LABS: Lipase 68 U/L (23-300)
--- NOTE | 2023-08-04 22:30 | ED.ABDPAIN ---
HPI - Abdominal Pain General Chief Complaint: Abdominal Pain Stated Complaint: abd pain n/v Time Seen by Provider: 08/04/23 21:24 History of Present Illness HPI narrative: Patient is a 43-year-old male who presents to the emergency department this evening complaining of nonspecific abdominal pain and nausea and vomiting. Patient states that he does have a history of pancreatitis. Patient's abdominal pain is nonspecific and patient states that is all over his abdomen. Patient was seen at [facility] at their emergency department this morning around 8:00 a.m. for similar symptoms and blood work obtained revealed no acute process. Patient's urinalysis revealed UTI and he was sent home on an antibiotic which patient has picked up but has not started taking it because he states that after he woke up from his nap he was nauseous and had an episode of vomiting. Patient states that he still has the abdominal pain and feels nauseous. Patient admits that he does have a GI doctor that he follows up with regularly. He is currently denying any additional symptoms at this time. There are no other modifying, alleviating, or precipitating factors at this time. Related Data Home Medications Medication Instructions Recorded Confirmed apixaban 5 mg tablet (Eliquis) 5 mg PO BID 04/05/23 04/05/23 dicyclomine 20 mg tablet 20 mg PO BID 04/05/23 04/05/23 Allergies Allergy/AdvReac Type Severity Reaction Status Date / Time doxycycline Allergy Unknown Gastrointestinal Verified 08/04/23 21:14 Upset metoclopramide Allergy Unknown Muscle Verified 08/04/23 21:14 Spasms sulfamethoxazole Allergy Unknown Gastrointestinal Verified 08/04/23 21:14 Upset trimethoprim Allergy Unknown Gastrointestinal Verified 08/04/23 21:14 Upset haloperidol [From Haldol] AdvReac Mild Muscle Verified 08/04/23 21:14 Spasms Sulfa (Sulfonamide AdvReac Gastrointestinal Verified 08/04/23 21:14 Antibiotics) Upset Review of Systems Review of Systems: All systems are reviewed and are negative unless stated otherwise in the HPI. PMFSH Past Medical History Medical History Anxiety Chronic pancreatitis Colitis Cyclic vomiting syndrome Cyclical vomiting Depression Gastroenteritis GERD (gastroesophageal reflux disease) Hypertension IBD (inflammatory bowel disease) Kidney infarction Kidney stones Pancreatitis Surgical History Surgical History Hx of cholecystectomy Family History Family History Grandparent Acute myocardial infarction Social History Social History Smoking packs per day: 1 Smoking cigarettes per day: 20.0 Years smoked: 20 Smoking pack-years: 20.00 Smoking status: Current every day smoker Tobacco type: cigarettes Alcohol intake: current Drinks per week: 3 Substance use: current Substance use type: marijuana Last use: PROBABLY ABOUT A WEEK AGOago Lack of Transportation: No Lack of Food: Never True Current Housing: I Have Housing Concerned About Future Housing: No Difficulty Paying Gas/Electric Bills: No Difficulty Paying for Meds: No Currently Unemployed: No Education: High School Diploma/GED Difficulty w/ Childcare or Family Care: No Living arrangements: alone Gender identity (if verbalized by the patient): Male Sexual Orientation (if Verbalized by the Patient): Straight or Heterosexual Spiritual care concerns: No Exam Narrative: General: Alert, awake, afebrile, in no acute distress. HEENT: PERRL, no rhinorrhea, no post nasal drip, oropharynx clear. Neck: Trachea midline, no JVD, no lymphadenopathy. Cardiovascular: Regular rate and rhythm, no murmurs, rubs or gallops, no peripheral edema. Respiratory: Clear to auscultation bilaterally, no tachypne
[2023-08-04 22:32] LABS: Bacteria Urine None Seen /hpf; Non Pathogenic Casts 0-2; RBC Urine 0-2 /hpf (0-2); Squamous Epithelial Cell Urine None Seen /hpf (Few); WBC Urine 0-5 /hpf (0-3)
[2023-08-04 22:54] LABS: Appearance Urine Clear (Clear); Color Urine Yellow (Yellow)
[2023-08-04 22:55] LABS: Bilirubin Urine Negative (Negative); Blood Urine Trace-intact (Negative); Glucose Urine UA Negative (Negative); Ketones Urine Trace mg/dL (Negative); Leukocyte Esterase Ur Negative LEU/UL (Negative); Nitrate Urine Negative (Negative); Protein Urine Negative (Negative); Specific Grav Ur 1.025 (1.001-1.035); Urobilinogen Urine 0.2 mg/dL (<2.0)
[2023-08-04 22:56] LABS: Add Urine Microscopic? YES
[2023-08-04] MEDS: KETOROLAC 15 MG/ML VIAL (*BKC) IV PUSH (23:10)
[2023-08-04] MEDS: ONDANSETRON INJ 4 MG/2 ML VIAL IV PUSH (23:10)
[2023-08-04] MEDS: PANTOPRAZOLE SODIUM IV 40 MG VIAL IV PUSH (23:10)
[2023-08-04 23:25] VITALS: BP 114/78; PULSE 88; RESP 19; O2SAT 99
== END 2023-08-04 23:26 | disposition home or self-care (01) ==
PROVIDERS: Emergency Provider Emergency Medicine; PCP Family Medicine
DX: R11.2 Nausea with vomiting, unspecified (principal); R10.9 Unspecified abdominal pain; F17.210 Nicotine dependence, cigarettes, uncomplicated; F41.9 Anxiety disorder, unspecified; F32.A Depression, unspecified; K21.9 Gastro-esophageal reflux disease without esophagitis; I10 Essential (primary) hypertension; Z87.442 Personal history of urinary calculi
CPT/HCPCS: 36415; 80053; 81001; 82248; 83605; 83690; 83735; 85025; 96374; 96375; 99284; C9113; J1885; J2405

== ENCOUNTER 2023-11-09 22:58 | Emergency (ER) | payer OTHER, SELFPAY ==
[2023-11-09 22:59] VITALS: BP 174/92; PULSE 93; RESP 16; TEMP 36.2; O2SAT 99
[2023-11-09 23:16] LABS: Basophils Percent Auto 0.2 % (0.2-1.2); Hematocrit 38.5 % (42.0-52.0); Immature Granulocyte Absolute 0.05 K/mm3 (0.00-0.031); Immature Granulocyte Percent A 0.4 % (0-0.5); Lymphocytes Absolute Auto 1.46 K/mm3 (0.9-3.2); Lymphocytes Percent Auto 11.1 % (18.3-44.2); Mean Corpuscular HGB Conc 31.2 g/dl (32-36); Mean Corpuscular Volume 80.2 fl (80-100); Mean Platelet Volume 9.8 fl (7.4-10.4); Monocytes Absolute Auto 0.7 K/mm3 (0.1-0.6); Monocytes Percent Auto 5.3 % (2.6-8.5); Neutrophils Absolute Auto 10.9 K/mm3 (1.3-6.7); Platelet Count Result 353 k/mm3 (150-375); Red Cell Distribution Width 17.6 % (11.5-14.5); White Blood Count 13.1 K/mm3 (4.5-10.0)
[2023-11-09 23:31] LABS: Alanine Aminotransferase 65 U/L (6-50); Albumin Level 4.6 g/dL (3.5-5.1); Alkaline Phosphatase 104 U/L (38-126); Anion Gap 9 mmol/L (4-12); Aspartate Amino Transferase 74 U/L (17-59); Bilirubin,Total 0.7 mg/dL (0.2-1.3); Blood Urea Nitrogen 6 mg/dL (9-20); Calcium 9.2 mg/dL (8.4-10.2); Carbon Dioxide 24 mmol/L (22-30); Chloride 107 mmol/L (98-107); Estimated CRCL calculation 108 ml/min; Estimated Glomerular Filt Rate > 60; Glucose 117 mg/dL (65-110); Lipase 95 U/L (23-300); Potassium 4.2 mmol/L (3.4-5.0); Sodium 140 mmol/L (137-145)
[2023-11-09 23:47] LABS: Appearance Urine Clear (Clear); Bilirubin Urine Negative (Negative); Blood Urine Negative (Negative); Color Urine Yellow (Yellow); Glucose Urine UA Negative (Negative); Ketones Urine 1+ mg/dL (Negative); Leukocyte Esterase Ur Negative LEU/UL (Negative); Nitrate Urine Negative (Negative); Protein Urine Negative (Negative); Specific Grav Ur 1.013 (1.001-1.035); Urobilinogen Urine 0.2 mg/dL (<2.0)
[2023-11-09 23:56] LABS: Add Urine Microscopic? YES
--- NOTE | 2023-11-10 00:01 | ED.ABDPAIN ---
HPI - Abdominal Pain General Chief Complaint: Abdominal Pain Stated Complaint: abd pain, nausea Time Seen by Provider: 11/09/23 23:46 History of Present Illness HPI narrative: Patient is a 43-year-old male with history of recurrent pancreatitis here with epigastric pain, nausea and vomiting. Patient states that he has had recurrent issues with acute on chronic pancreatitis, follows with a gluer machine operator out of [facility]. He states that he was last admitted for an ERCP out 3 months ago. He has been told in the past that he has muscle sphincter issues which contribute to his pancreatitis. He is status post cholecystectomy. He states that earlier today he was trying to hydrate himself and had some cranberry juice, about 30 seconds later he began having immediate pain in his epigastric region as well as nausea and vomiting. He continues to have pain and nausea. He notes that this feels very similar to his prior episodes of pancreatitis in the past. He does endorse subjective fever and chills, no diarrhea, cough. No sick contacts. Related Data Home Medications Medication Instructions Recorded Confirmed apixaban 5 mg tablet (Eliquis) 5 mg PO BID 04/05/23 04/05/23 dicyclomine 20 mg tablet 20 mg PO BID 04/05/23 04/05/23 Allergies Allergy/AdvReac Type Severity Reaction Status Date / Time doxycycline Allergy Unknown Gastrointestinal Verified 11/10/23 00:46 Upset metoclopramide Allergy Unknown Muscle Verified 11/10/23 00:46 Spasms sulfamethoxazole Allergy Unknown Gastrointestinal Verified 11/10/23 00:46 Upset trimethoprim Allergy Unknown Gastrointestinal Verified 11/10/23 00:46 Upset haloperidol [From Haldol] AdvReac Mild Muscle Verified 11/10/23 00:46 Spasms prochlorperazine AdvReac Muscle Verified 11/10/23 00:46 [From Compazine] Spasms Sulfa (Sulfonamide AdvReac Gastrointestinal Verified 11/10/23 00:46 Antibiotics) Upset Review of Systems Review of Systems: All systems reviewed & are unremarkable except as noted in HPI and below PMFSH Past Medical History Medical History Anxiety Chronic pancreatitis Colitis Cyclic vomiting syndrome Cyclical vomiting Depression Gastroenteritis GERD (gastroesophageal reflux disease) Hypertension IBD (inflammatory bowel disease) Kidney infarction Kidney stones Pancreatitis Surgical History Surgical History Hx of cholecystectomy Family History Family History Grandparent Acute myocardial infarction Social History Social History Smoking packs per day: 1 Smoking cigarettes per day: 20.0 Years smoked: 20 Smoking pack-years: 20.00 Smoking status: Current every day smoker Tobacco type: cigarettes Alcohol intake: current Drinks per week: 3 Substance use: current Substance use type: marijuana Last use: PROBABLY ABOUT A WEEK AGOago Lack of Transportation: No Lack of Food: Never True Current Housing: I Have Housing Concerned About Future Housing: No Difficulty Paying Gas/Electric Bills: No Difficulty Paying for Meds: No Currently Unemployed: No Education: High School Diploma/GED Difficulty w/ Childcare or Family Care: No Living arrangements: alone Gender identity (if verbalized by the patient): Male Sexual Orientation (if Verbalized by the Patient): Straight or Heterosexual Spiritual care concerns: No Exam Narrative: GENERAL: Well-appearing, well-nourished, and in no acute distress. HEAD: Normocephalic, atraumatic. EYES: PERRLA and EOMI. ENT: Nares clear. Mucous membranes moist. NECK: Supple. CHEST: Clear to auscultation. No respiratory distress. HEART: Regular rate and rhythm. Normal peripheral pulses. ABDOMEN: Soft, mild epigastric tenderness w
[2023-11-10 00:43] VITALS: BP 119/78; PULSE 85; RESP 15; O2SAT 100
[2023-11-10] MEDS: LACTATED RINGERS 1,000 ML 999 ML IV CONT (02:01)
[2023-11-10] MEDS: PANTOPRAZOLE SODIUM IV 40 MG VIAL IV PUSH (02:02)
[2023-11-10] MEDS: ONDANSETRON INJ 4 MG/2 ML VIAL IV PUSH (02:02)
[2023-11-10] MEDS: MORPHINE SULFATE (*CRX) 4 MG/ML INJ IV PUSH (02:02)
--- NOTE | 2023-11-10 02:53 | PC.NURSE ---
pt refusing ketoralac iv. erp updated.
[2023-11-10] MEDS: MORPHINE SULFATE (*CRX) 2 MG/ML INJ IV PUSH (03:42)
[2023-11-10] MEDS: KETOROLAC 15 MG/ML VIAL (*BKC) IV PUSH (03:42)
[2023-11-10 03:45] VITALS: BP 124/76; PULSE 80; RESP 16; O2SAT 98
== END 2023-11-10 03:55 | disposition home or self-care (01) ==
PROVIDERS: Emergency Provider Student in an Organized Health Care Education/Training Program; PCP Family Medicine
DX: R10.13 Epigastric pain (principal); R11.2 Nausea with vomiting, unspecified; I10 Essential (primary) hypertension; F17.210 Nicotine dependence, cigarettes, uncomplicated
CPT/HCPCS: 36415; 80053; 81001; 83690; 85025; 96361; 96374; 96375; 96376; 99284; J1885; J2270; J2405; J2470; J7120

== ENCOUNTER 2023-11-13 11:28 | Emergency (ER) | payer OTHER, SELFPAY ==
[2023-11-13] VITALS (9 sets, daily range): BP systolic 132–147; BP diastolic 78–101; PULSE 71–83; RESP 15–20; TEMP 36.4–36.8; O2SAT 98–100
--- NOTE | ~2023-11-13 | CT_ITS ---
EXAMINATION: CT abdomen pelvis w con DATE: 11/13/2023 12:41 INDICATION: Abdominal pain and nausea. TECHNIQUE: Computed tomography (CT) of the abdomen and pelvis was performed with 100 mL Omnipaque 350 intravenous contrast. Automated exposure control and iterative reconstruction technique were employe d. The dose-length product was 316.74 mGy-cm. COMPARISON: CT abdomen pelvis 05/22/2023 FINDINGS: The visualized portions of the lung bases demonstrate mild atelectasis. No pleural effusion . The heart size is normal. No pericardial effusion. There is a 5 mm cyst in the liver. Pneumobilia i s noted, likely secondary to sphincterotomy. There are changes of cholecystectomy. The spleen, pancre as, adrenal glands, and kidneys are normal. There are no dilated loops of bowel. The appendix is norm al. There are no pathologically enlarged lymph nodes. There is no free intraperitoneal fluid. There i s a right inguinal hernia containing fat. There is mild lumbar spondylosis. IMPRESSION: 1. Right inguinal hernia containing fat. Reviewed, dictated and finalized at location A.
[2023-11-13 12:01] LABS: Basophils Percent Auto 0.4 % (0.2-1.2); Eosinophils Percent Auto 0.4 % (0-4.4); Hematocrit 34.5 % (42.0-52.0); Immature Granulocyte Absolute 0.02 K/mm3 (0.00-0.031); Immature Granulocyte Percent A 0.2 % (0-0.5); Lymphocytes Absolute Auto 1.34 K/mm3 (0.9-3.2); Lymphocytes Percent Auto 16.2 % (18.3-44.2); Mean Corpuscular HGB Conc 31.9 g/dl (32-36); Mean Corpuscular Hemoglobin 25.1 pg (26-34); Mean Corpuscular Volume 78.8 fl (80-100); Mean Platelet Volume 9.7 fl (7.4-10.4); Monocytes Absolute Auto 0.9 K/mm3 (0.1-0.6); Monocytes Percent Auto 10.8 % (2.6-8.5); Neutrophils Absolute Auto 5.9 K/mm3 (1.3-6.7); Platelet Count Result 302 k/mm3 (150-375); Red Blood Count 4.38 M/mm3 (4.6-6.20); Red Cell Distribution Width 17.8 % (11.5-14.5); White Blood Count 8.3 K/mm3 (4.5-10.0)
[2023-11-13 12:11] LABS: Alanine Aminotransferase 30 U/L (6-50); Albumin Level 4.1 g/dL (3.5-5.1); Alkaline Phosphatase 71 U/L (38-126); Anion Gap 8 mmol/L (4-12); Aspartate Amino Transferase 29 U/L (17-59); Bilirubin,Total 0.4 mg/dL (0.2-1.3); Blood Urea Nitrogen 10 mg/dL (9-20); Carbon Dioxide 23 mmol/L (22-30); Chloride 110 mmol/L (98-107); Estimated CRCL calculation 97 ml/min; Estimated Glomerular Filt Rate > 60; Glucose 132 mg/dL (65-110); Lipase 66 U/L (23-300); Potassium 3.5 mmol/L (3.4-5.0); Sodium 141 mmol/L (137-145)
[2023-11-13] MEDS: ONDANSETRON INJ 4 MG/2 ML VIAL IV PUSH (12:28)
[2023-11-13] MEDS: MORPHINE SULFATE (*CRX) 2 MG/ML INJ IV PUSH (12:29)
[2023-11-13] MEDS: PANTOPRAZOLE SODIUM IV 40 MG VIAL IV PUSH (12:31)
[2023-11-13 12:49] LABS: Appearance Urine Cloudy (Clear); Bacteria Urine None Seen /hpf; Bilirubin Urine Negative (Negative); Blood Urine Negative (Negative); Color Urine Yellow (Yellow); Glucose Urine UA Negative (Negative); Ketones Urine Negative (Negative); Leukocyte Esterase Ur Negative LEU/UL (Negative); Nitrate Urine Negative (Negative); Non Pathogenic Casts 0-2; Protein Urine Negative (Negative); RBC Urine 0-2 /hpf (0-2); Specific Grav Ur 1.011 (1.001-1.035); Squamous Epithelial Cell Urine None Seen /hpf (Few); Urobilinogen Urine 0.2 mg/dL (<2.0); WBC Urine 0-5 /hpf (0-3)
[2023-11-13 12:50] LABS: Add Urine Microscopic? YES
--- NOTE | 2023-11-13 12:55 | ED.ABDPAIN ---
HPI - Abdominal Pain General Chief Complaint: Abdominal Pain Stated Complaint: abd pain, nausea Time Seen by Provider: 11/13/23 12:05 History of Present Illness HPI narrative: Patient is a 43-year-old male who presents to the emergency department this afternoon complaining of mid epigastric abdominal pain. Patient states that pain initially started yesterday shortly after he had dinner and he tried away it out at home but pain returned today after he tried to have some cranberry juice. Patient admits to feeling nauseous and admits to having a few episodes of vomiting. Admits smoking marijuana but states that he has decreased his marijuana use and now only uses it occasionally. Patient had an MRCP 1 month ago at [facility] and did follow up with regarding abdominal pain that he was having and they informed him that this is not from his MRCP and everything looked. Patient has been seen at our facility multiple times for abdominal pain. Denies any fevers or chills at home. Related Data Home Medications Medication Instructions Recorded Confirmed apixaban 5 mg tablet (Eliquis) 5 mg PO BID 04/05/23 04/05/23 dicyclomine 20 mg tablet 20 mg PO BID 04/05/23 04/05/23 Allergies Allergy/AdvReac Type Severity Reaction Status Date / Time doxycycline Allergy Unknown Gastrointestinal Verified 11/13/23 11:52 Upset metoclopramide Allergy Unknown Muscle Verified 11/13/23 11:52 Spasms sulfamethoxazole Allergy Unknown Gastrointestinal Verified 11/13/23 11:52 Upset trimethoprim Allergy Unknown Gastrointestinal Verified 11/13/23 11:52 Upset haloperidol [From Haldol] AdvReac Mild Muscle Verified 11/13/23 11:52 Spasms prochlorperazine AdvReac Muscle Verified 11/13/23 11:52 [From Compazine] Spasms Sulfa (Sulfonamide AdvReac Gastrointestinal Verified 11/13/23 11:52 Antibiotics) Upset Review of Systems Review of Systems: All systems are reviewed and are negative unless stated otherwise in the HPI. [facility] Past Medical History Medical History Anxiety Chronic pancreatitis Colitis Cyclic vomiting syndrome Cyclical vomiting Depression Gastroenteritis GERD (gastroesophageal reflux disease) Hypertension IBD (inflammatory bowel disease) Kidney infarction Kidney stones Pancreatitis Surgical History Surgical History Hx of cholecystectomy Family History Family History Grandparent Acute myocardial infarction Social History Social History Smoking packs per day: 1 Smoking cigarettes per day: 20.0 Years smoked: 20 Smoking pack-years: 20.00 Smoking status: Current every day smoker Tobacco type: cigarettes Alcohol intake: current Drinks per week: 3 Substance use: current Substance use type: marijuana Last use: PROBABLY ABOUT A WEEK AGOago Lack of Transportation: No Lack of Food: Never True Current Housing: I Have Housing Concerned About Future Housing: No Difficulty Paying Gas/Electric Bills: No Difficulty Paying for Meds: No Currently Unemployed: No Education: High School Diploma/GED Difficulty w/ Childcare or Family Care: No Living arrangements: alone Gender identity (if verbalized by the patient): Male Sexual Orientation (if Verbalized by the Patient): Straight or Heterosexual Spiritual care concerns: No Exam Narrative: General: Alert, awake, afebrile, in no acute distress. HEENT: PERRL, no rhinorrhea, no post nasal drip, oropharynx clear. Cardiovascular: Regular rate and rhythm, no murmurs, rubs or gallops, no peripheral edema. Respiratory: Clear to auscultation bilaterally, no tachypnea, no wheezing, no rhonchi, no rubs, no respiratory distress. Abdomen: Soft, non reproducible tenderness/ pain, nondistended, no rebound
--- NOTE | 2023-11-13 13:00 | ECG_ITS ---
Test Date: 2023-11-13 13:11:12 Measurements Intervals [place] Rate: 65 P: 22 NV: 112 QRS: 12 QRSD: 108 T: -18 QT: 397 QTc: 413 Interpretive Statements SINUS RHYTHM WITH SHORT NV INTERVAL INCOMPLETE RIGHT BUNDLE BRANCH BLOCK BORDERLINE ST-T WAVE ABNORMALITY- INFERIOR LEADS BASELINE ARTIFACT- I, II, III, AVR, AVL, AVF, V1-V6 BORDERLINE ECG No previous ECG available for comparison Electronically Signed On 11-13-2023 13:18:40 CDT by Bebo Stark D.O.
[2023-11-13] MEDS: SODIUM CHLORIDE 0.9% IV 1,000 ML 999 ML IV CONT (13:22)
[2023-11-13] MEDS: MORPHINE SULFATE (*CRX) 4 MG/ML INJ IV PUSH (13:23)
== END 2023-11-13 14:24 | disposition home or self-care (01) ==
PROVIDERS: Emergency Medicine; Emergency Provider Emergency Medicine; PCP Family Medicine
DX: R10.13 Epigastric pain (principal); G89.29 Other chronic pain; K86.1 Other chronic pancreatitis; K21.9 Gastro-esophageal reflux disease without esophagitis; I10 Essential (primary) hypertension; F17.210 Nicotine dependence, cigarettes, uncomplicated; Z87.442 Personal history of urinary calculi; Z90.49 Acquired absence of other specified parts of digestive tract; Z79.01 Long term (current) use of anticoagulants; R11.2 Nausea with vomiting, unspecified; K40.90 Unilateral inguinal hernia, without obstruction or gangrene, not specified as recurrent; I45.10 Unspecified right bundle-branch block; R94.31 Abnormal electrocardiogram [ECG] [EKG]
CPT/HCPCS: 36415; 74177; 80053; 81001; 83690; 85025; 93005; 96361; 96374; 96375; 96376; 99284; J2270; J2405; J2470; J7030; Q9967

== ENCOUNTER 2023-12-30 08:30 | Emergency (ER) | payer OTHER, SELFPAY ==
[2023-12-30] VITALS (7 sets, daily range): BP systolic 130–155; BP diastolic 87–98; PULSE 60–77; RESP 15–20; TEMP 36.7; O2SAT 98–100
--- NOTE | ~2023-12-30 | XR_ITS ---
EXAMINATION: XR chest 2V DATE: 12/30/2023 10:22 INDICATION: Leukocytosis. TECHNIQUE: Frontal and lateral views of the chest were obtained. COMPARISON: Chest single view 04/04/2023 FINDINGS: There is no pneumonia, pleural effusion, or pneumothorax. The heart size is normal. Surgica l clips in the right upper quadrant are likely from cholecystectomy. IMPRESSION: 1. No acute cardiopulmonary disease. Reviewed, dictated and finalized at location A.
--- NOTE | 2023-12-30 09:11 | ED.ABDPAIN ---
HPI - Abdominal Pain General Chief Complaint: Abdominal Pain Stated Complaint: abd pain Time Seen by Provider: 12/30/23 08:59 Source: patient Mode of arrival: ambulatory Limitations: no limitations History of Present Illness HPI narrative: Pt is a 43-year-old male who presents to the ER with abdominal pain that started last night. He reports he has a history of pancreatitis, even though my labs don't normally look like it. Pt denies alcohol and marijuana use. He reports his pain is in his LUQ and is constant. Pt requests Dilaudid and Ativan to treat the pain. He also endorses nausea and vomiting. Pt's last bowel movement was yesterday. He reports having a new carton maker. He denies chest pain, shortness of breath, melena, or bloody emesis. Related Data Home Medications Medication Instructions Recorded Confirmed apixaban 5 mg tablet (Eliquis) 5 mg PO BID 04/05/23 04/05/23 dicyclomine 20 mg tablet 20 mg PO BID 04/05/23 04/05/23 Allergies Allergy/AdvReac Type Severity Reaction Status Date / Time metoclopramide Allergy Unknown Muscle Verified 12/30/23 08:30 Spasms haloperidol [From Haldol] AdvReac Mild Muscle Verified 12/30/23 08:30 Spasms doxycycline AdvReac Unknown Gastrointestinal Verified 12/30/23 11:00 Upset sulfamethoxazole AdvReac Unknown Gastrointestinal Verified 12/30/23 11:00 Upset trimethoprim AdvReac Unknown Gastrointestinal Verified 12/30/23 11:00 Upset prochlorperazine AdvReac Muscle Verified 12/30/23 08:30 [From Compazine] Spasms Sulfa (Sulfonamide AdvReac Gastrointestinal Verified 12/30/23 08:30 Antibiotics) Upset [facility] Past Medical History Medical History Anxiety Chronic pancreatitis Colitis Cyclic vomiting syndrome Cyclical vomiting Depression Gastroenteritis GERD (gastroesophageal reflux disease) Hypertension IBD (inflammatory bowel disease) Kidney infarction Kidney stones Pancreatitis Surgical History Surgical History Hx of cholecystectomy Family History Family History Grandparent Acute myocardial infarction Social History Social History Smoking packs per day: 1 Smoking cigarettes per day: 20.0 Years smoked: 20 Smoking pack-years: 20.00 Smoking status: Current every day smoker Tobacco type: cigarettes Alcohol intake: current Drinks per week: 3 Substance use: current Substance use type: marijuana Last use: PROBABLY ABOUT A WEEK AGOago Lack of Transportation: No Lack of Food: Never True Current Housing: I Have Housing Concerned About Future Housing: No Difficulty Paying Gas/Electric Bills: No Difficulty Paying for Meds: No Currently Unemployed: No Education: High School Diploma/GED Difficulty w/ Childcare or Family Care: No Living arrangements: alone Gender identity (if verbalized by the patient): Male Sexual Orientation (if Verbalized by the Patient): Straight or Heterosexual Spiritual care concerns: No Exam Narrative: GENERAL: Well-appearing, well-nourished, diaphoretic, and in mild distress d/t pain. CARDIAC: Regular rate and rhythm without murmurs, rubs or gallops. RESPIRATORY: Clear to auscultation bilaterally. No wheezes, rales or rhonchi. ABDOMEN: Soft, tender upper quadrants with palpation, normoactive bowel sounds throughout, positive for guarding, no rebound. No masses appreciated. EXTREMITIES: Normal range of motion, no swelling, clubbing or other deformities. NEUROLOGICAL: Cranial nerves II through XII grossly intact, no focal deficits noted. Normal gait, normal speech. SKIN: Warm, dry, normal color, no rashes, no lesions. Course Reevaluation(s) Reevaluation #1: [employer]PER[employer]OR went into re-evaluate pt. He reports his pain is still a 10/10
[2023-12-30 09:22] LABS: Basophils Percent Auto 0.1 % (0.2-1.2); Hematocrit 35.4 % (42.0-52.0); Hemoglobin 11.4 g/dL (14.0-18.0); Immature Granulocyte Absolute 0.07 K/mm3 (0.00-0.031); Immature Granulocyte Percent A 0.4 % (0-0.5); Lymphocytes Absolute Auto 0.69 K/mm3 (0.9-3.2); Lymphocytes Percent Auto 4.1 % (18.3-44.2); Mean Corpuscular HGB Conc 32.2 g/dl (32-36); Mean Corpuscular Hemoglobin 26.2 pg (26-34); Mean Corpuscular Volume 81.4 fl (80-100); Mean Platelet Volume 10.7 fl (7.4-10.4); Monocytes Absolute Auto 0.9 K/mm3 (0.1-0.6); Monocytes Percent Auto 5.2 % (2.6-8.5); Neutrophils Absolute Auto 15.3 K/mm3 (1.3-6.7); Neutrophils Percent Auto 90.2 % (45.5-73.1); Platelet Count Result 296 k/mm3 (150-375); Red Blood Count 4.35 M/mm3 (4.6-6.20); Red Cell Distribution Width 17.6 % (11.5-14.5); White Blood Count 16.9 K/mm3 (4.5-10.0)
[2023-12-30] MEDS: SODIUM CHLORIDE 0.9% IV 1,000 ML 999 ML IV CONT (09:26)
[2023-12-30] MEDS: PANTOPRAZOLE SODIUM IV 40 MG VIAL IV PUSH (09:27)
[2023-12-30] MEDS: ONDANSETRON INJ 4 MG/2 ML VIAL IV PUSH (09:28)
[2023-12-30] MEDS: MORPHINE SULFATE (*CRX) 4 MG/ML INJ IV PUSH (09:29)
[2023-12-30 09:37] LABS: Alanine Aminotransferase 15 U/L (6-50); Albumin Level 4.2 g/dL (3.5-5.1); Alkaline Phosphatase 82 U/L (38-126); Anion Gap 13 mmol/L (4-12); Aspartate Amino Transferase 25 U/L (17-59); Bilirubin,Total 0.9 mg/dL (0.2-1.3); Blood Urea Nitrogen 10 mg/dL (9-20); Calcium 8.6 mg/dL (8.4-10.2); Carbon Dioxide 20 mmol/L (22-30); Chloride 106 mmol/L (98-107); Estimated Glomerular Filt Rate > 60; Glucose 136 mg/dL (65-110); Lipase 89 U/L (23-300); Sodium 139 mmol/L (137-145)
[2023-12-30 10:47] LABS: Add Urine Microscopic? YES; Appearance Urine Cloudy (Clear); Bacteria Urine None Seen /hpf; Bilirubin Urine Negative (Negative); Blood Urine Negative (Negative); Color Urine Yellow (Yellow); Glucose Urine UA Negative (Negative); Ketones Urine 4+ mg/dL (Negative); Leukocyte Esterase Ur Negative LEU/UL (Negative); Nitrate Urine Negative (Negative); Non Pathogenic Casts 0-2; Protein Urine Trace mg/dL (Negative); RBC Urine 0-2 /hpf (0-2); Specific Grav Ur 1.022 (1.001-1.035); Squamous Epithelial Cell Urine None Seen /hpf (Few); WBC Urine 0-5 /hpf (0-3)
[2023-12-30] MEDS: FAMOTIDINE 20 MG/2 ML VIAL IV PUSH (10:56)
[2023-12-30] MEDS: HYDROmorphone HCL INJ (*CRX) 1 MG/ML SYR 0.5 MG IV PUSH (10:59)
[2023-12-30] MEDS: KETOROLAC 15 MG/ML VIAL (*BKC) IV PUSH (11:45)
== END 2023-12-30 11:50 | disposition home or self-care (01) ==
PROVIDERS: Student in an Organized Health Care Education/Training Program; Emergency Provider Registered Nurse; PCP Family Medicine
DX: K86.1 Other chronic pancreatitis (principal); G43.A0 Cyclical vomiting, in migraine, not intractable; R10.13 Epigastric pain; G89.29 Other chronic pain; I10 Essential (primary) hypertension; F17.210 Nicotine dependence, cigarettes, uncomplicated
CPT/HCPCS: 36415; 71046; 80053; 81001; 83690; 85025; 96361; 96374; 96375; 99284; J1170; J1885; J2270; J2405; J2470; J7030

== ENCOUNTER 2024-01-01 06:26 | Emergency (ER) | payer OTHER, SELFPAY ==
[2024-01-01 06:55] VITALS: BP 160/101; PULSE 67; RESP 15; TEMP 36.7; O2SAT 100
[2024-01-01 07:00] LABS: Basophils Absolute Auto 0.1 K/mm3 (0.0-0.1); Basophils Percent Auto 0.5 % (0.2-1.2); Eosinophils Absolute Auto 0.1 K/mm3 (0-0.3); Hematocrit 38.9 % (42.0-52.0); Hemoglobin 12.6 g/dL (14.0-18.0); Immature Granulocyte Absolute 0.03 K/mm3 (0.00-0.031); Immature Granulocyte Percent A 0.3 % (0-0.5); Lymphocytes Absolute Auto 3.22 K/mm3 (0.9-3.2); Lymphocytes Percent Auto 27.6 % (18.3-44.2); Mean Corpuscular HGB Conc 32.4 g/dl (32-36); Mean Corpuscular Hemoglobin 26.3 pg (26-34); Mean Corpuscular Volume 81.2 fl (80-100); Mean Platelet Volume 9.9 fl (7.4-10.4); Monocytes Absolute Auto 1.3 K/mm3 (0.1-0.6); Monocytes Percent Auto 11.1 % (2.6-8.5); Neutrophils Percent Auto 59.5 % (45.5-73.1); Platelet Count Result 307 k/mm3 (150-375); Red Blood Count 4.79 M/mm3 (4.6-6.20); Red Cell Distribution Width 17.8 % (11.5-14.5); White Blood Count 11.7 K/mm3 (4.5-10.0)
[2024-01-01 07:09] LABS: Alanine Aminotransferase 19 U/L (6-50); Albumin Level 4.4 g/dL (3.5-5.1); Alkaline Phosphatase 86 U/L (38-126); Anion Gap 11 mmol/L (4-12); Aspartate Amino Transferase 28 U/L (17-59); Bilirubin,Total 0.4 mg/dL (0.2-1.3); Blood Urea Nitrogen 8 mg/dL (9-20); Calcium 9.1 mg/dL (8.4-10.2); Carbon Dioxide 24 mmol/L (22-30); Chloride 105 mmol/L (98-107); Estimated Glomerular Filt Rate > 60; Glucose 118 mg/dL (65-110); Lipase 120 U/L (23-300); Potassium 3.4 mmol/L (3.4-5.0); Sodium 140 mmol/L (137-145)
[2024-01-01 07:28] LABS: Add Urine Microscopic? YES; Appearance Urine Turbid (Clear); Bacteria Urine None Seen /hpf; Bilirubin Urine Negative (Negative); Blood Urine Negative (Negative); Color Urine Yellow (Yellow); Glucose Urine UA Negative (Negative); Ketones Urine Negative (Negative); Leukocyte Esterase Ur Negative LEU/UL (Negative); Nitrate Urine Negative (Negative); Non Pathogenic Casts 0-2; Protein Urine Negative (Negative); RBC Urine 0-2 /hpf (0-2); Specific Grav Ur 1.014 (1.001-1.035); Squamous Epithelial Cell Urine None Seen /hpf (Few); Urobilinogen Urine 0.2 mg/dL (<2.0); WBC Urine 0-5 /hpf (0-3)
[2024-01-01 09:30] VITALS: BP 130/72; PULSE 78; RESP 16; O2SAT 98
--- NOTE | 2024-01-01 09:53 | ED.ABDPAIN ---
HPI - Abdominal Pain General Chief Complaint: Abdominal Pain Stated Complaint: abd pain Time Seen by Provider: 01/01/24 07:00 Source: patient and old records reviewed Mode of arrival: ambulatory Limitations: no limitations History of Present Illness HPI narrative: Patient is a 43-year-old male, with past medical history of cyclic vomiting syndrome, opioid abuse, chronic abdominal pain, who presents the ED with report of abdominal pain. Patient reports he was seen in the ED here 2 days ago for similar symptoms. Was improved with therapy in the ED. patient states he tried to advance his diet today and eat some pretzels when he began feeling ill again. He complains of burning / cramping pain throughout his upper abdomen, nausea, vomiting. Denies any diarrhea, constipation, fevers. Patient states his current symptoms feel similar to his typical cyclic vomiting. Patient requesting morphine and Dilaudid. Patient is currently following with Dr. Woodruff with GI, has appt next week. Related Data Home Medications Medication Instructions Recorded Confirmed apixaban 5 mg tablet (Eliquis) 5 mg PO BID 04/05/23 04/05/23 dicyclomine 20 mg tablet 20 mg PO BID 04/05/23 04/05/23 Allergies Allergy/AdvReac Type Severity Reaction Status Date / Time metoclopramide Allergy Unknown Muscle Verified 12/30/23 08:30 Spasms haloperidol [From Haldol] AdvReac Mild Muscle Verified 12/30/23 08:30 Spasms doxycycline AdvReac Unknown Gastrointestinal Verified 12/30/23 11:00 Upset sulfamethoxazole AdvReac Unknown Gastrointestinal Verified 12/30/23 11:00 Upset trimethoprim AdvReac Unknown Gastrointestinal Verified 12/30/23 11:00 Upset prochlorperazine AdvReac Muscle Verified 12/30/23 08:30 [From Compazine] Spasms Sulfa (Sulfonamide AdvReac Gastrointestinal Verified 12/30/23 08:30 Antibiotics) Upset Review of Systems Review of Systems: All systems reviewed & are unremarkable except as noted in HPI. All systems reviewed & are unremarkable except as noted in HPI and below PMFSH Past Medical History Medical History Anxiety Chronic pancreatitis Colitis Cyclic vomiting syndrome Cyclical vomiting Depression Gastroenteritis GERD (gastroesophageal reflux disease) Hypertension IBD (inflammatory bowel disease) Kidney infarction Kidney stones Pancreatitis Surgical History Surgical History Hx of cholecystectomy Family History Family History Grandparent Acute myocardial infarction Social History Social History Smoking packs per day: 1 Smoking cigarettes per day: 20.0 Years smoked: 20 Smoking pack-years: 20.00 Smoking status: Current every day smoker Tobacco type: cigarettes Alcohol intake: current Drinks per week: 3 Substance use: current Substance use type: marijuana Last use: PROBABLY ABOUT A WEEK AGOago Lack of Transportation: No Lack of Food: Never True Current Housing: I Have Housing Concerned About Future Housing: No Difficulty Paying Gas/Electric Bills: No Difficulty Paying for Meds: No Currently Unemployed: No Education: High School Diploma/GED Difficulty w/ Childcare or Family Care: No Living arrangements: alone Gender identity (if verbalized by the patient): Male Sexual Orientation (if Verbalized by the Patient): Straight or Heterosexual Spiritual care concerns: No Exam Narrative: GENERAL: Ill/disheveled appearing, thin, rocking back and forth on stretcher. HEAD: Normocephalic, atraumatic. RESPIRATORY: Airway patent, respirations nonlabored. Clear to auscultation bilaterally, no rales, rhonchi, wheezing. CARDIOVASCULAR: Regular rate and rhythm without murmurs, rubs, or gallops. ABDOMINAL: Sof
[2024-01-01 10:30] VITALS: BP 120/72; PULSE 70; RESP 16; O2SAT 98
[2024-01-01 10:30] LABS: Amphetamine Screen Urine Negative (Negative); Barbiturate Screen Urine Negative (Negative); Benzodiazepines Screen Urine Negative (Negative); Cannabinoid Screen Urine Positive (Negative); Cocaine Screen Urine Negative (Negative); Methadone Screen Urine Negative (Negative); Opiate Screen Urine Negative (Negative); Phencyclidine Screen Urine Negative (Negative)
[2024-01-01] MEDS: SODIUM CHLORIDE 0.9% IV 1,000 ML 999 ML IV CONT (10:37)
[2024-01-01] MEDS: ONDANSETRON INJ 4 MG/2 ML VIAL IV PUSH ×2 (10:37→11:46)
[2024-01-01] MEDS: PANTOPRAZOLE SODIUM IV 40 MG VIAL IV PUSH (10:41)
[2024-01-01] MEDS: MORPHINE SULFATE (*CRX) 4 MG/ML INJ IV PUSH (10:41)
[2024-01-01 11:30] VITALS: BP 149/90; PULSE 70; RESP 16; O2SAT 98
--- NOTE | 2024-01-01 11:30 | PC.NURSE ---
PT IS NOT WANTING TO TAKE THE KETOROLAC AND DIPHENHYDRAMINE. REQUESTING DILAUDID IT'S THE ONLY THING THAT WORKS AND OFFERS RELIEF I'M NOT DRUG SEEKING ISABEL AWARE AND WILL GO SPEAK WITH PT
[2024-01-01] MEDS: KETOROLAC 30 MG/ML VIAL (*BKC) IV PUSH (11:47)
[2024-01-01] MEDS: diphenhydrAMINE HCl INJ 50 MG/ML VIAL 25 MG IV PUSH (11:48)
[2024-01-01 12:35] VITALS: BP 140/80; PULSE 72; RESP 16; O2SAT 100
== END 2024-01-01 12:35 | disposition home or self-care (01) ==
PROVIDERS: Emergency Medicine; Emergency Provider Physician Assistant; PCP Family Medicine
DX: R11.15 Cyclical vomiting syndrome unrelated to migraine (principal); R10.9 Unspecified abdominal pain; G89.29 Other chronic pain; I10 Essential (primary) hypertension; F17.210 Nicotine dependence, cigarettes, uncomplicated
CPT/HCPCS: 36415; 80053; 80307; 81001; 83690; 85025; 96361; 96374; 96375; 96376; 99284; J1200; J1885; J2270; J2405; J2470; J7030

== ENCOUNTER 2024-01-09 23:17 | Emergency (ER) | payer OTHER, SELFPAY ==
[2024-01-09 23:20] VITALS: BP 171/111; PULSE 88; RESP 18; TEMP 36.6; O2SAT 100
[2024-01-10] VITALS (7 sets, daily range): BP systolic 130–154; BP diastolic 77–110; PULSE 57–96; RESP 13–21; O2SAT 100
[2024-01-10 01:37] LABS: Basophils Absolute Auto 0.1 K/mm3 (0.0-0.1); Basophils Percent Auto 0.3 % (0.2-1.2); Eosinophils Percent Auto 0.1 % (0-4.4); Hematocrit 39.4 % (42.0-52.0); Hemoglobin 13.1 g/dL (14.0-18.0); Immature Granulocyte Absolute 0.09 K/mm3 (0.00-0.031); Immature Granulocyte Percent A 0.5 % (0-0.5); Lymphocytes Absolute Auto 1.21 K/mm3 (0.9-3.2); Lymphocytes Percent Auto 6.5 % (18.3-44.2); Mean Corpuscular HGB Conc 33.2 g/dl (32-36); Mean Corpuscular Hemoglobin 26.5 pg (26-34); Mean Corpuscular Volume 79.8 fl (80-100); Mean Platelet Volume 9.6 fl (7.4-10.4); Monocytes Absolute Auto 1.1 K/mm3 (0.1-0.6); Monocytes Percent Auto 5.7 % (2.6-8.5); Neutrophils Absolute Auto 16.2 K/mm3 (1.3-6.7); Neutrophils Percent Auto 86.9 % (45.5-73.1); Platelet Count Result 339 k/mm3 (150-375); Red Blood Count 4.94 M/mm3 (4.6-6.20); Red Cell Distribution Width 17.3 % (11.5-14.5); White Blood Count 18.7 K/mm3 (4.5-10.0)
[2024-01-10 01:46] LABS: Anion Gap 14 mmol/L (4-12); Blood Urea Nitrogen 10 mg/dL (9-20); Carbon Dioxide 23 mmol/L (22-30); Chloride 104 mmol/L (98-107); Potassium 3.7 mmol/L (3.4-5.0); Sodium 141 mmol/L (137-145)
[2024-01-10 01:47] LABS: Alanine Aminotransferase 19 U/L (6-50); Albumin Level 4.6 g/dL (3.5-5.1); Alkaline Phosphatase 102 U/L (38-126); Aspartate Amino Transferase 23 U/L (17-59); Bilirubin,Total 0.5 mg/dL (0.2-1.3); Calcium 9.5 mg/dL (8.4-10.2); Estimated Glomerular Filt Rate > 60; Glucose 152 mg/dL (65-110); Lipase 134 U/L (23-300)
--- NOTE | 2024-01-10 03:15 | PC.NURSE ---
Report received from JOHN Sotelo. Assumed care of patient at this time.
[2024-01-10] MEDS: diphenhydrAMINE HCl INJ 50 MG/ML VIAL 25 MG IV PUSH (04:26)
[2024-01-10] MEDS: PROCHLORPERAZINE EDISYLATE 10 MG/2 ML VIAL IM (04:26)
[2024-01-10] MEDS: FAMOTIDINE 20 MG/2 ML VIAL IV PUSH (04:26)
[2024-01-10] MEDS: DICYCLOMINE HCL INJ 20 MG/2 ML VIAL IM (04:27)
--- NOTE | 2024-01-10 05:35 | ED.GENADULT ---
HPI - General Adult General Chief complaint: Abdominal Pain Stated complaint: abd pain/vomiting Time Seen by Provider: 01/10/24 02:54 History of Present Illness HPI narrative: 43-year-old male with history of chronic abdominal pain presenting with abdominal pain. Patient says that he tried to eat some chicken wings and his stomach flipped any started have severe cramping pain throughout his entire abdomen. This is his typical attack. Patient is requesting morphine and Dilaudid. Related Data Home Medications Medication Instructions Recorded Confirmed apixaban 5 mg tablet (Eliquis) 5 mg PO BID 04/05/23 04/05/23 dicyclomine 20 mg tablet 20 mg PO BID 04/05/23 04/05/23 Allergies Allergy/AdvReac Type Severity Reaction Status Date / Time metoclopramide Allergy Unknown Muscle Verified 12/30/23 08:30 Spasms haloperidol [From Haldol] AdvReac Mild Muscle Verified 12/30/23 08:30 Spasms doxycycline AdvReac Unknown Gastrointestinal Verified 12/30/23 11:00 Upset sulfamethoxazole AdvReac Unknown Gastrointestinal Verified 12/30/23 11:00 Upset trimethoprim AdvReac Unknown Gastrointestinal Verified 12/30/23 11:00 Upset prochlorperazine AdvReac Muscle Verified 12/30/23 08:30 [From Compazine] Spasms Sulfa (Sulfonamide AdvReac Gastrointestinal Verified 12/30/23 08:30 Antibiotics) Upset PMFSH Past Medical History Medical History Anxiety Chronic pancreatitis Colitis Cyclic vomiting syndrome Cyclical vomiting Depression Gastroenteritis GERD (gastroesophageal reflux disease) Hypertension IBD (inflammatory bowel disease) Kidney infarction Kidney stones Pancreatitis Surgical History Surgical History Hx of cholecystectomy Family History Family History Grandparent Acute myocardial infarction Social History Social History Smoking packs per day: 1 Smoking cigarettes per day: 20.0 Years smoked: 20 Smoking pack-years: 20.00 Smoking status: Current every day smoker Tobacco type: cigarettes Alcohol intake: current Drinks per week: 3 Substance use: current Substance use type: marijuana Last use: PROBABLY ABOUT A WEEK AGOago Lack of Transportation: No Lack of Food: Never True Current Housing: I Have Housing Concerned About Future Housing: No Difficulty Paying Gas/Electric Bills: No Difficulty Paying for Meds: No Currently Unemployed: No Education: High School Diploma/GED Difficulty w/ Childcare or Family Care: No Living arrangements: alone Gender identity (if verbalized by the patient): Male Sexual Orientation (if Verbalized by the Patient): Straight or Heterosexual Spiritual care concerns: No Exam Narrative: APPEARANCE: No apparent distress. Head: atraumatic. EYES: EOMI, NOSE: Atraumatic NECK: Trachea midline RESPIRATORY: No increased rate of breathing CTAB CARDIOVASCULAR: RRR, ABDOMINAL: Nondistended, soft, diffuse the reported tenderness but no guarding or rebound MUSCULOSKELETAl: No obvious deformities NEURO: Alert. Moving 4/4 extremities SKIN:: Warm, dry. Normal color PSYCHIATRIC: Normal affect Course Vital Signs Vital signs: Vital Signs Temperature 97.8 F 01/09/24 23:20 Pulse Rate 88 01/09/24 23:20 Respiratory Rate 18 01/09/24 23:20 Blood Pressure 171/111 H 01/09/24 23:20 Pulse Oximetry 100 01/09/24 23:20 Oxygen Delivery Room Air 01/09/24 23:20 Temperature 97.8 F 01/09/24 23:20 Pulse Rate 73 01/10/24 02:46 Respiratory Rate 16 01/10/24 02:46 Blood Pressure 130/77 01/10/24 02:46 Pulse Oximetry 100 01/10/24 02:31 Oxygen Delivery Room Air 01/09/24 23:20 Medical Decision Making [facility] Narrative Medical decision making narrative: -Course: 43-year-old male with
== END 2024-01-10 05:50 | disposition home or self-care (01) ==
PROVIDERS: Emergency Provider Emergency Medicine; PCP Family Medicine
DX: R10.9 Unspecified abdominal pain (principal); F17.210 Nicotine dependence, cigarettes, uncomplicated; F41.9 Anxiety disorder, unspecified; F32.A Depression, unspecified; K21.9 Gastro-esophageal reflux disease without esophagitis; Z87.442 Personal history of urinary calculi
CPT/HCPCS: 36415; 80053; 83690; 85025; 96372; 96374; 96375; 99284; J0500; J0780; J1200

== ENCOUNTER 2024-02-19 14:51 | Emergency (ER) | payer OTHER, SELFPAY ==
--- NOTE | ~2024-02-19 | CT_ITS ---
CT abdomen pelvis w con Ordering provider: Alannah White MD History: 43 years Male with . r/o pancreatitis, here with n/v/abd pain, +lipase . Comparison: November 13, 2023 Technique: CT abdomen and pelvis with IV and without oral contrast. Automated exposure control and it erative reconstruction technique were employed. The dose-length product was 276.01 mGy-cm. Findings: VISUALIZED LOWER CHEST: Normal. UPPER ABDOMINAL ORGANS: Liver: Mild fat infiltration Gallbladder: Status post cholecystectomy. Spleen: Normal. Stomach/duodenum: Normal. Pancreas: Normal. Adrenals: Normal. Kidneys: Hypodense area seen in the right kidney midpole measuring 9 mm and also on the right kidney lower pole most likely a cyst.. Ultrasound follow-up is advised to evaluate for cystic nature.. PELVIC ORGANS: The bladder is normal. Prostatic calcifications. BOWEL AND MESENTERY: Colon: No evidence of diverticulitis. Normal appendix. Small Bowel: Normal. No obstruction. Peritoneum/mesentery: No free air or free fluid. No mesenteric lymphadenopathy. RETROPERITONEUM: Mild atheromatous disease of the abdominal aorta. No retroperitoneal lymphadenopat hy. MUSCULOSKELETAL: Superficial soft tissues: The superficial soft tissues are normal. Bones: Age appropriate degenerative changes of the spine. IMPRESSION: 1. No evidence of appendicitis, diverticulitis or intestinal obstruction. Reviewed, dictated and finalized at location A.
--- NOTE | ~2024-02-19 | US_ITS ---
EXAM: ABDOMEN ULTRASOUND HISTORY: elev lipase, h/o pancreatitis COMPARISON: Reference is made to CT examination of the abdomen and pelvis dated 11/13/2023 are FINDINGS: LIVER: The liver is unremarkable in echogenicity and size measuring 15 cm in longitudinal dimension. The portal vein is patent demonstrating hepatopedal flow. The contour of the liver is smooth. GALLBLADDER: Surgically absent. BILE DUCTS: Common bile duct measures 3.2mm. PANCREAS: Limited evaluation of the pancreas secondary to overlying bowel gas SPLEEN: The spleen is unremarkable in echogenicity and size measuring 8.9 cm in longitudinal dimensio n. RIGHT KIDNEY: 10.8 cm. In length. No hydronephrosis or bulky renal calculi. LEFT KIDNEY: 9.8cm in length. No hydronephrosis or renal calculi. VASCULATURE : The abdominal aorta is nonaneurysmal. The IVC is patent. IMPRESSION: Unremarkable sonographic evaluation of the abdomen, as detailed above. Evaluation of the pancreas is limited by overlying bowel gas. Reviewed, dictated and finalized at location A.
[2024-02-19 14:52] VITALS: BP 180/110; PULSE 80; RESP 18; TEMP 36.4; O2SAT 99
[2024-02-19 15:51] LABS: Basophils Percent Auto 0.3 % (0.2-1.2); Eosinophils Percent Auto 0.3 % (0-4.4); Hematocrit 42.1 % (42.0-52.0); Hemoglobin 13.6 g/dL (14.0-18.0); Immature Granulocyte Absolute 0.05 K/mm3 (0.00-0.031); Immature Granulocyte Percent A 0.3 % (0-0.5); Lymphocytes Absolute Auto 1.18 K/mm3 (0.9-3.2); Lymphocytes Percent Auto 8.2 % (18.3-44.2); Mean Corpuscular HGB Conc 32.3 g/dl (32-36); Mean Corpuscular Hemoglobin 26.7 pg (26-34); Mean Corpuscular Volume 82.5 fl (80-100); Mean Platelet Volume 9.7 fl (7.4-10.4); Monocytes Absolute Auto 1.2 K/mm3 (0.1-0.6); Monocytes Percent Auto 8.3 % (2.6-8.5); Neutrophils Absolute Auto 11.8 K/mm3 (1.3-6.7); Neutrophils Percent Auto 82.6 % (45.5-73.1); Platelet Count Result 330 k/mm3 (150-375); Red Cell Distribution Width 17.9 % (11.5-14.5); White Blood Count 14.3 K/mm3 (4.5-10.0)
[2024-02-19] MEDS: PROMETHAZINE HCL 25 MG/ML AMPUL IM (15:52)
[2024-02-19 16:02] LABS: Alanine Aminotransferase 21 U/L (6-50); Albumin Level 4.6 g/dL (3.5-5.1); Alkaline Phosphatase 90 U/L (38-126); Anion Gap 8 mmol/L (4-12); Aspartate Amino Transferase 33 U/L (17-59); Bilirubin,Total 0.7 mg/dL (0.2-1.3); Blood Urea Nitrogen 8 mg/dL (9-20); Calcium 9.4 mg/dL (8.4-10.2); Carbon Dioxide 26 mmol/L (22-30); Chloride 104 mmol/L (98-107); Estimated CRCL calculation 91 ml/min; Estimated Glomerular Filt Rate > 60; Glucose 120 mg/dL (65-110); Lipase 653 U/L (23-300); Potassium 3.9 mmol/L (3.4-5.0); Sodium 138 mmol/L (137-145)
[2024-02-19] MEDS: LACTATED RINGERS 1,000 ML 999 ML IV CONT (17:00)
[2024-02-19] MEDS: FAMOTIDINE 20 MG/2 ML VIAL IV PUSH (17:01)
[2024-02-19] MEDS: PANTOPRAZOLE SODIUM IV 40 MG VIAL IV PUSH (17:01)
--- NOTE | 2024-02-19 17:20 | ED.ABDPAIN ---
HPI - Abdominal Pain General Chief Complaint: Abdominal Pain Stated Complaint: abd pain Time Seen by Provider: 02/19/24 15:26 History of Present Illness HPI narrative: Patient with history of chronic abdominal pain and pancreatitis presents here with nausea, vomiting, epigastric abdominal pain. Ongoing past 2 days. Related Data Home Medications Medication Instructions Recorded Confirmed apixaban 5 mg tablet (Eliquis) 5 mg PO BID 04/05/23 04/05/23 dicyclomine 20 mg tablet 20 mg PO BID 04/05/23 04/05/23 Allergies Allergy/AdvReac Type Severity Reaction Status Date / Time metoclopramide Allergy Unknown Muscle Verified 12/30/23 08:30 Spasms haloperidol [From Haldol] AdvReac Mild Muscle Verified 12/30/23 08:30 Spasms doxycycline AdvReac Unknown Gastrointestinal Verified 12/30/23 11:00 Upset sulfamethoxazole AdvReac Unknown Gastrointestinal Verified 12/30/23 11:00 Upset trimethoprim AdvReac Unknown Gastrointestinal Verified 12/30/23 11:00 Upset prochlorperazine AdvReac Muscle Verified 12/30/23 08:30 [From Compazine] Spasms Sulfa (Sulfonamide AdvReac Gastrointestinal Verified 12/30/23 08:30 Antibiotics) Upset Review of Systems Review of Systems: All systems reviewed & are unremarkable except as noted in HPI and below PMFSH Past Medical History Medical History Anxiety Chronic pancreatitis Colitis Cyclic vomiting syndrome Cyclical vomiting Depression Gastroenteritis GERD (gastroesophageal reflux disease) Hypertension IBD (inflammatory bowel disease) Kidney infarction Kidney stones Pancreatitis Surgical History Surgical History Hx of cholecystectomy Family History Family History Grandparent Acute myocardial infarction Social History Social History Smoking packs per day: 1 Smoking cigarettes per day: 20.0 Years smoked: 20 Smoking pack-years: 20.00 Smoking status: Current every day smoker Tobacco type: cigarettes Alcohol intake: current Drinks per week: 3 Substance use: current Substance use type: marijuana Last use: PROBABLY ABOUT A WEEK AGOago Lack of Transportation: No Lack of Food: Never True Current Housing: I Have Housing Concerned About Future Housing: No Difficulty Paying Gas/Electric Bills: No Difficulty Paying for Meds: No Currently Unemployed: No Education: High School Diploma/GED Difficulty w/ Childcare or Family Care: No Living arrangements: alone Gender identity (if verbalized by the patient): Male Sexual Orientation (if Verbalized by the Patient): Straight or Heterosexual Spiritual care concerns: No Exam Narrative: EXAMINATION OF ORGAN SYSTEMS/BODY AREAS: Constitutional: Vital signs per nursing GENERAL: Appears uncomfortable HEAD: Normal with no signs of head trauma. EYES: EOMI, conjunctiva normal ENT: Hearing grossly intact LUNGS: Nonlabored breathing. HEART: [Regular rate and rhythm] ABD: [Soft], slight tenderness to palpation epigastric abdomen EXT: Normal range of motion SKIN: [No rashes or lesions.] NEURO: [Alert and oriented x 3. No gross focal sensory or strength deficits.] PSYCH: Normal affect Course Vital Signs Vital signs: Vital Signs Temperature 97.6 F 02/19/24 14:52 Pulse Rate 80 02/19/24 14:52 Respiratory Rate 18 02/19/24 14:52 Blood Pressure 180/110 H 02/19/24 14:52 Pulse Oximetry 99 02/19/24 14:52 Oxygen Delivery Room Air 02/19/24 14:52 Temperature 97.6 F 02/19/24 14:52 Pulse Rate 80 02/19/24 14:52 Respiratory Rate 18 02/19/24 14:52 Blood Pressure 180/110 H 02/19/24 14:52 Pulse Oximetry 99 02/19/24 14:52 Oxygen Delivery Room Air 02/19/24 14:52 MDM - Abdominal Pain MDM Narrative Medical decision making
[2024-02-19] MEDS: MAG HYDROX/AL HYDROX/SIMETH 30 ML UDC PO (18:10)
[2024-02-19] MEDS: DICYCLOMINE HCL INJ 20 MG/2 ML VIAL IM (18:10)
[2024-02-19 18:11] VITALS: BP 148/80; PULSE 80; RESP 20; TEMP 36.6; O2SAT 100
[2024-02-19] MEDS: KETOROLAC 15 MG/ML VIAL (*BKC) IV PUSH (18:11)
== END 2024-02-19 18:37 | disposition home or self-care (01) ==
PROVIDERS: Emergency Provider Emergency Medicine; PCP Family Medicine
DX: R11.15 Cyclical vomiting syndrome unrelated to migraine (principal); R10.13 Epigastric pain; G89.29 Other chronic pain; R79.89 Other specified abnormal findings of blood chemistry; K86.1 Other chronic pancreatitis; F41.8 Other specified anxiety disorders; K21.9 Gastro-esophageal reflux disease without esophagitis; I10 Essential (primary) hypertension; F17.210 Nicotine dependence, cigarettes, uncomplicated
CPT/HCPCS: 36415; 74177; 76705; 80053; 83690; 85025; 96361; 96372; 96374; 96375; 99284; A9270; J0500; J1885; J2470; J2550; J7120; Q9967

== ENCOUNTER 2024-06-21 17:33 | Emergency (ER) | payer OTHER, SELFPAY ==
--- OUTSIDE RECORDS SUMMARY | 2024-06-21 17:36 | XMS_ITS ---
Author Organization [facility] Address [address] [facility] [address] [place] [address] Care Team Providers Care Head Of Transport Logistics Name Role Phone John TUCKER, Td Primary Care Provider Tucker FIGUEROA RACEBOOK WRITER, MELISSA Unavailable ALLERGIES Allergen (clinical drug ingredient) Drug/Non Drug Allergy documented on EMR Reaction Allergy Type Onset Date Status Substance with sulfonamide structure and antibacterial mechanism of action (substance) sulfa (uncoded) Unknown Allergy Active metoclopramide Metoclopramide HCl Unknown Drug Allergy Active doxycycline Doxycycline Unknown Drug Allergy Act nemesio REASON FOR VISIT f/u ERCP MEDICATIONS Medication SIG (Take, Route, Frequency, Duration) Notes Start Date End Date Status Hyoscyamine Sulfate 0.125 MG 1 tablet on the tongue and allow to dissolve as needed Orally four times a day for 30 days 10/23/2023 Active Famotidine 40 MG 1 tablet at bedtime Orally Once a day for 30 days Active HYDROcodone-Acetaminophen 5-325 MG 1 tablet as needed Orally every 6 hrs Active Ondansetron 4 MG 1 tablet on the tong ue and allow to dissolve Orally Once a day Active PROBLEMS Problem Type ICD Code Onset Dates Problem Status W/U Status Risk SNOMED Code Notes Problem Other chronic pancreatitis (K86.1) Active confirmed Chronic pancreatitis (478006964) VITAL SIGNS Blood pressure systolic 110 mm Hg 10/23/19 24 Blood pressure diastolic 81 mm Hg 024 Heart Rate 88 /min 10/23/2023 Height 70 in 10/23/2023 Weight 159 lbs 10/23/2023 BMI 22.81 kg/m2 10/23/2023 Encounters Encounter Location Date Provider Diagnosis [facility] [address] [place] [address] 10/23/2023 MELISSA FIGUEROA Other chronic pancreatitis K86.1 ; Epigastric pain R10.13 ; Nausea R11.0 and Diarrhea, unspecified R19.7 ASSESSMENTS Encounter Date Diagnosis Assessment Notes Treatment Notes Treatment Clinical Notes Section Notes 10/23/2023 Other chronic pancreatitis (ICD-10 - K86.1) informed that this is a chronic condition and at some point sphincterotomies will not be possible. Discussed possible pain management, discussed possible CPB to help as well. 10/23/2023 Epigastric pain (ICD-10 - R10.13) will send in prescription for hysocaymine PRN to help with pain as he ay be spasming due to procedure 10/23/2023 Nausea (ICD-10 - R11.0) Discussed possible etiologies including but not limited to PUD, GERD, gastroparesis, functional GI, obstruction of BD/PD, chronic pancreatitis and others.. educated on eating smaller portions throughout the day Low fat diet recommended will refill famotidine 10/23/2023 Diarrhea, unspecified (ICD-10 - R19.7) samples of creon 36k given, will call with update if wanting a prescription. 10/23/2023 Other Time spent: 30minutes. More than 50% spent reviewing diagnostic results, compliance with current medical therapy, counseling patient on low fat diet, weight reduction to normal BMI, normal BMI discussed, avoidance of ETOH/tobacco products, discussing treatment options. Have discussed details of EUS and/or ERCP procedure including indications/risks/ex pected outcomes/limitations /possible medication side effects, and alternatives to procedure. All questions answered and patient expresses understanding. No contraindications noted. Instructed patient regarding management plan, follow-up visits, and stressed importance of compliance with plan. PLAN OF TREATMENT Medication Medication Name Sig Start Date Stop Date Notes Hyoscyamine Sulfate 0.125 MG 1 tablet on the tongue and allow to dissolve as needed Orally four times a day for 30 days 10/23/2023 Famotidine 40 MG 1 tablet at bedtime Orally Once a day for 30 days Treatment Notes Assessment Notes Other chronic pancreatitis informed that this is a chronic condition and at some point sphincterotomies will not be possible. Discussed possible pain management, discussed possible CPB to help as well. Epigastric pain will send in prescri ption for hysocaymine PRN to help with pain as he ay be spasming due to procedure Nausea Discussed possible etiologies including but not limited to PUD, GERD, gastroparesis, functional GI, obstruction of BD/PD, chronic pancreatitis and others.. educated on eating smaller portions throughout the day Low fat diet recommended will refill famotidine Diarrhea, unspecified samples of creon 3 6k given, will call with update if wanting a prescription. Other Time spent: 30minute s. More than 50% spent reviewing diagnostic results, compliance with current medical therapy, counseling patient on low fat diet, weight reduction to normal BMI, normal BMI discussed, avoidance of ETOH/tobacco products, discussing treatment options. Have discussed details of EUS and/or ERCP procedure including indications/risks/expected outcomes/limitations/possible medication side effects, and alternatives to procedure. All questions answered and patient expresses understanding. No contraindications noted. Instructed patient regarding management plan, follow-up visits, and stressed importance of compliance with plan. Next Appt Details Follow Up: 1 Year, Reason: Progress Notes * KEVIN Donovan TUCKEROB: 2 (43 yo M)Acc No.[id number]:10/23/2023 Progress Notes Patient: Donovan BROWN Appointment Provider: Melissa Figueroa CNP :1980 Age:43 Y Sex:Male Date:10/23/2023 Address:[address] [place] [address] [facility] Pcp:Td Lopez MD Subjective: * Chief Complaints: * 1. f/u ERCP. * HPI: Constitutional: Donovan is a 43 year old male with history of chronic pancreatitis, cyclic vomiting, hyperemesis cannabis, s/p cholecystectomy with multiple ERCPs who presents today s/p ERCP with Dr Woodruff on 09/21/23 for recurrent pancreatitis. This showed papillary stenosis treated with extension of previous biliary and pancreatic sphincterotomies, dual duct stenting was performed and removed on 09/22 with excellent drainage noted. He states that he has been doing well but will have complaints of mild epigastric pain and nausea. He states that if he overeats that he will have nausea and has learned when to stop. He has occasional complaints of nausea, and states that famotidine helps well with this. Overall he is doing much better. P revious testin EUS Enma showed mild chronic pancreatitis, no dilation of PD/BD ERCP Aliperti PS treated with extension of previous sphincterotomies, dual duct stenting performed and removed on 09/20 ERCP Aliperti stents removed on 02/10 2 015 ERCP. * ROS: Gastrointestinal: Admits Abdominal pain. Denies Blood in stool. Denies Change in bowel habits. Denies Colitis, denies. Denies Constipation. Denies Decreased appetite. Admits Diarrhea, occasional. Denies Difficulty swallowing. Denies Exposure to hepatitis. Denies Heartburn. Denies Hematemesis. Denies Hepatitis, denies. Admits Nausea. Denies Rectal bleeding. Denies Stomach problems, denies. Denies Vomiting. Denies Weight loss. * Medical History: Chronic pancreatitis, Cyclic vomiting, Hyperemesis cannabis. * Surgical History: cholecystectomy , ERCP . * Family History: Father: alive. Mother: alive. * Social History: Tobacco Use: Do you smoke?: Current smoker. Drugs/Alcohol: Caffeine Intake: more than 4 cups per day. Do you smoke marijuana?: Denies. Do you drink alcohol?: No. * Medications: Taking HYDROcodone-Acetaminophen 5-325 MG Tablet 1 tablet as needed Orally every 6 hrs , Taking Ondansetron 4 MG Tablet Disintegrating 1 tablet on the tongue and allow to dissolve Orally Once a day , Taking Famotidine 40 MG Tablet 1 tablet at bedtime Orally Once a day , Medication List reviewed and reconciled with the patient * Allergies: Doxycycline, Metoclopramide HCl, sulfa. Objective: * Vitals: HR:88/min, BP:110/81mm Hg, Wt:159lbs, BMI:22.81Index, Ht:70in, Ht-cm: 177.8 cm, Wt-k.12 kg. * Examination: General Examination: GENERAL APPEARANCE: in no acute distress, well developed, well nourished. HEART: no murmurs, regular rate and rhythm, S1, S2 normal. LUNGS: clear to auscultation bilaterally. ABDOMEN: normal, bowel sounds present, soft, epigastric discomfort with palpation, nondistended. NEUROLOGIC: alert and oriented, sensory exam intact. Assessment: * Assessment: 1. Other chronic pancreatitis - K86.1 (Primary) 2. Epigastric pain - R10.13 3. Nausea - R11.0 4. Diarrhea, unspecified - R19.7 Plan: * Treatment: 2. Epigastric pain Start Hyoscyamine Sulfate Tablet Disintegrating, 0.125 MG, 1 tablet on the tongue and allow to dissolve as needed, Orally, four times a day, 30 days, 120, Refills 2. Notes: will send in prescription for hysocaymine PRN to help with pain as he ay be spasming due to procedure 3. Nausea Refill Famotidine Tablet, 40 MG, 1 tablet at bedtime, Orally, Once a day, 30 days, 30 Tablet, Refills 6. Notes: Discussed possible etiologies including but not limited to PUD, GERD, gastroparesis, functional GI, obstruction of BD/PD, chronic pancreatitis and others.. educated on eating smaller portions throughout the day Low fat diet recommended will refill famotidine 4. Diarrhea, unspecified Notes: samples of creon 36k given, will call with update if wanting a prescription. 5. Others Notes: Time spent: 30minutes. More than 50% spent reviewing diagnostic results, compliance with current medical therapy, counseling patient on low fat diet, weight reduction to normal BMI, normal BMI discussed, avoidance of ETOH/tobacco products, discussing treatment options. Have discussed details of EUS and/or ERCP procedure including indications/risks/expected outcomes/limitations/possible medication side effects, and alternatives to procedure. All questions answered and patient expresses understanding. No contraindications noted. Instructed patient regarding management plan, follow-up visits, and stressed importance of compliance with plan. * Preventive Medicine: YOUR PREVENTIVE WELLNESS PLAN: Colorectal Cancer Screening: Screening for colorectal cancer was last done on: age 46. HCG Diet: Nutrition: Education Provided: adequate fluid intake, breakfast, lunch, dinner, daily exercise, food portions, healthy snacks, ideal plate, increase vegatables intake, reducing fat, reducing sodium. Nutrition Counseling: Healthy Food Choices: limit or eliminate junk food, low fat choices, Weight Management: regular exercises, healthy diet with limited calories. * Follow Up: 1 Year * Images: * Sign off status: Completed true * Appointment Provider: Melissa Figueroa CNP Date: 10/23/2023 History and Physical Notes * HPI (History of Present Illness) Category Sub-Category Detail Notes Category Not es Constitutional Donovan is a 43 year old male with history of chronic pancreatitis, cyclic vomiting, hyperemesis cannabis, s/p cholecystectomy with multiple ERCPs who presents today s/p ERCP with Dr Woodruff on 09/21/23 for recurrent pancreatitis. This showed papillary stenosis treated with extension of previous biliary and pancreatic sphincterotomies, dual duct stenting was performed and removed on 09/22 with excellent drainage noted. He states that he has been doing well but will have complaints of mild epigastric pain and nausea. He states that if he overeats that he will have nausea and has learned when to stop. He has occasional complaints of nausea, and states that famotidine helps well with this. Overall he is doing much better. Previous testin07/15/21 EUS [place] showed mild chronic pancreatitis, no dilation of PD/BD 09/18/18 ERCP Kacy PS treated with extension of previous sphincterotomies, dual duct stenting performed and removed on 09/2002/07/22 ERCP Kacy stents removed on 02/10 2015 ERCP Examination Category Sub-Category Detail Notes Category Not es General Examination GENERAL APPEARANCE: in no ac obinna distress, well developed, well nourished HEART: no murmurs, regular rate and rhythm, S1, S2 normal LUNGS: clear to auscultatio n bilaterally ABDOMEN: normal, bowel sounds present, soft, epigastric discomfort with palpation, nondistended NEUROLOGIC: alert and oriented, sensory exam intact
--- OUTSIDE RECORDS SUMMARY | 2024-06-21 17:37 | XMS_ITS | Encounter Summary ---
Author Organization [facility] Healthcare Address [address] [place] [id number] Care Team Providers Care Whale Trainer Name Role Phone Td Lopez MD Primary Care Provider + Angie Woodard MD Unavailable [phone] Vimal Woodruff MD Unavailable [phone] Alannah Baumann MA Unavailable [phone] Encounter Details Date Type Department Care Team (Late st Contact Info) Description 12/21/2017 Documentation [id number] [place] [address] Shannan Farfan RN Social History Tobacco Use Types Packs/Day Years Used Date Smoking Tobacco: Every Day Sex and Gender Information Value Date Recorded Sex Assigned at Not on file Legal Sex Male 3:38 AM [employer] Gender Identity Not on file Sexual Orientation Not on file documented as of this encounter Plan of Treatment Not on file documented as of this encounter Visit Diagnoses Not on filedocumented in this encounter Additional Health Concerns Infection Onset Date Last Indicated Resolved Time MRSA Comment:201712/19/2020: IP review, no recent infection. MRSA surv. Negative x2 04/15/2018 04/14/20182020 3:05 PM CDT COVID: Suspected 06/27/2021 06/27/2021 06/27/2021 12:53 PM [employer] WORK[employer] COVID19 06/27/2021 06/27/2021 07/08/2021 3:05 AM [employer] WORK[employer] COVID: Recovered Comment:Added based on recent COVID infection. 07/08/2021 07/14/2021 11/05/2021 3:05 AM C DT COVID: Suspected 05/20/2022 05/20/2022 05/20/2022 2:32 AM [employer]LLW[employer] WORKER COVID: Suspected 09/20/2023 09/20/2023 09/20/2023 9:26 PM CDT COVID: Suspected 10/04/2023 10/04/2023 10/04/2023 3:55 PM CDT documented as of this encounter Care Teams Whale Trainer Relationship Specialty Start Date End Date Td Lopez MD [address] [facility] [address] [place] [address] PCP - General Family Medicine 11/09/20 Angie Woodard MD [address] [facility] [address] [place] [address] Consulting Physician Gastroenterology 07/17/21 Vimal Woodruff MD [address] [facility] [place] [address] [place] [address] Consulting Physician Gastroenterology 02/10/22 Alannah Baumann MA [address] [place] [address] [address] [place] [address] [employer] 12/31/23 01/05/24 documented as of this encounter
--- OUTSIDE RECORDS SUMMARY | 2024-06-21 17:37 | XMS_ITS | Clinical Summary ---
Author Organization [facility] Address [address] [place] [address] Care Team Providers Care Research And Development Manager Name Role Phone Td Lopez MD Primary Care Provider + Angie Woodard MD Unavailable [phone] Vimal Woodruff MD Unavailable [phone] Allergies Active Allergy Reactions Criticality Noted Date Comments Capsaicin Other (See comments) Low 05/20/2019 Pt states it gets into his scars and causes a lot of pain Doxycycline Stomach upset Low Haloperidol Other (See comments),Muscle pain Medium 01/29/2022 Musculoskeletal pain; Tolerates droperidol without negative side effects Metoclopramide Hcl Anxiety,Other (See comments) Low 09/17/2018 Other reaction: muscle spasm Sulfa (Sulfonamide Antibiotics) Other (See comments) Medium Reaction: neurological symptoms per patient Medications famotidine (PEPCID) 20 mg tablet Take 1 tablet (20 mg total) by mouth daily Active hyoscyamine (OSCIMIN) 0.125 mg Take 1 tablet (0.125 mg total) by mouth every 8 (eight) hours as needed 4 Active naloxone (NARCAN) 4 mg/actuation spray,non-aerosol Administer 1 spray into affected nostril(s) as needed for opioid reversal Call 911. Administer a single spray in one nostril. Repeat every 3 minutes as needed if no or minimal response. 1 each 2 4 Active ondansetron ODT (ZOFRAN-ODT) 4 mg disintegrating tablet Take 1-2 tablets (4-8 mg total) by mouth every 8 (eight) hours as needed for nausea or vomiting 20 tablet 4 Active prochlorperazine (COMPAZINE) 10 mg tablet Take 1 tablet (10 mg total) by mouth 2 (two) times a day as needed for nausea or vomiting 10 tablet 5 Active Active Problems Problem Noted Date Diagnosed Date Neck pain 03/25/2024 Assessment & Plan (03/25/2024 11:50 AM HUMANITIES AND LANGUAGES PROFESSOR): - suspect just muscle strain - will check xray - offered PT but pt refused. Acute pancreatitis without i nfection or necrosis, unspecified pancreatitis type 11/15/2023 Protein-calorie malnutrition, moderate (CMS/HCC) 09/21/2023 Abdominal pain, generalized 09/19/2023 Assessment & Plan (09/25/2023 12:23 PM CDT): - improving - will give small amount of norco until pt heals from his procedure - f/u with GI Current use of longterm anticoagulation 023 Assessment & Plan (09/25/2023 12:23 PM CDT): - stable - continue eliquis Assessment & Plan (03/20/2023 11:08 AM HUMANITIES AND LANGUAGES PROFESSOR): - restart eliquis due to life long need for anticoagulation History of thrombosis 03/20/2023 Assessment & Plan (09/25/2023 12:22 PM CDT): - stable - continue eliquis Assessment & Plan (03/20/2023 11:08 AM HUMANITIES AND LANGUAGES PROFESSOR): - restart eliquis due to life long need for anticoagulation SVETLANA (generalized anxiety disorder) 03/18/2023 Assessment & Plan (09/25/2023 12:26 PM CDT): - stable - continue ativan per GI for short period of time then will need to start SNRI if sx continue - f/u if sx return and will restart SNRI Tobacco dependence syndrome 02/03/2023 Exocrine pancreatic insufficiency 02/03/2023 Amphetamine and psychostimulant dependence 01/10 Elevated lipase 01/10/2023 Fatty (change of) liver, not elsewhere classifie d 01/10/2023 Hepatic steatosis 01/10/2023 GERD (gastroesophageal reflux disease) Assessment & Plan (09/25/2023 12:24 PM CDT): - stable - continue famotidine Assessment & Plan (03/20/2023 11:08 AM HUMANITIES AND LANGUAGES PROFESSOR): - stable - continue current medication Renal infarct (CMS/HCC) 09/08/2022 Assessment & Plan (10/14/2022 8:31 PM CDT): - stable - continue current medication Assessment & Plan (09/17/2022 11:19 AM CDT): - hospital notes, labs, CT imaging reviewed - continue eliquis for 6 mo - concern for cause of unprovoked clot resulting in renal infarct and risk for future episodes - ref to hematology for evaluation for unprovoked clot Dermatitis 01/08/2022 Overview (01/10/2023): Last Assessment & Plan: - chronic, uncontrolled - start clindamycin gel daily x 7 days - ref to derm for eval. Assessment & Plan (03/25/2024 11:49 AM HUMANITIES AND LANGUAGES PROFESSOR): - ref to derm for eval Drug abuse and dependence (CMS/HCC) 02/12/2021 Overview (01/10/2023): Last Assessment & Plan: - using mariajuana occasionally; has had frequent rx for opioids in ER - pt claims at least several days since last ER visit with narcotics given - record review suggests at least 2 wks - will check UDS Chronic pancreatitis ([facility]/HCC) 12/21/2020 Overview (02/03/2023): Last Assessment & Plan: - stable today - continue current medications - f/u with Dr Woodard as planned - encouraged pt to come to clinic instead of going to ER next time he has abdominal pain Assessment & Plan (03/25/2024 11:49 AM HUMANITIES AND LANGUAGES PROFESSOR): - poor control - continue hyosciamine, famotidine, zofran - ref to GI for continued treatment Assessment & Plan (03/20/2023 11:07 AM HUMANITIES AND LANGUAGES PROFESSOR): - stable - continue current medication Duodenal papillary stenosis 11/27/2020 Pancreatic insufficiency 07/15/2019 Overview (07/15/2019): - pt started on creon for pancreatic insufficiency after several episodes of pancreatitis - no complaints regarding the medication Assessment & Plan (02/12/2021 11:21 AM CDT): - continue creon Assessment & Plan (01/01/2021 12:09 PM CDT): - stable - continue current medication Assessment & Plan (12/03/2020 3:06 PM CDT): - stable - continue current medication Assessment & Plan (02/29/2020 1:20 PM CDT): - stable - continue current medication Assessment & Plan (07/15/2019 11:44 AM HUMANITIES AND LANGUAGES PROFESSOR): - stable - continue creon Annual physical exam 07/15/2019 Overview (07/15/2019): - pt here for annual exam. - Pt has had several colonoscopies in the past with the last one in Apr [address] woodard - Pt smoking marijuana for his abdominal pain - pt smokes 1ppd x 20 yrs, some interest in quitting - not exercising. Assessment & Plan (09/25/2023 12:23 PM CDT): - Reviewed with the patient BMI, blood pressure, diet, exercise, and encouraged healthy lifestyle choices. - Screened for high risk behaviors, diet and exercise habits, and symptoms of depression. - check screening labs - encouraged regular exercise and healthy lifestyle Assessment & Plan (09/17/2022 11:17 AM CDT): - Reviewed with the patient BMI, blood pressure, diet, exercise, and encouraged healthy lifestyle choices. - Screened for high risk behaviors, diet and exercise habits, and symptoms of depression. 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 Assessment & Plan (07/15/2019 11:37 AM HUMANITIES AND LANGUAGES PROFESSOR): - encouraged pt to quit smoking Abdominal pain, epigastric 09/17/2018 Overview (09/17/2018): Added automatically from request for surgery [id number] Assessment & Plan (10/14/2022 8:30 PM CDT): - uncontrolled but benign exam today and normal labs/imaging in ER this morning - will give small amount of oxycodone to try to decrease pt return to ER - encouraged pt to avoid going to ER but instead to come to clinic for eval Assessment & Plan (12/03/2020 3:04 PM CDT): - due to chronic pancreatitis + IBS - start hyocyamine per GI rec - f/u with GI Chronic abdominal pain 03/30/2017 Overview (01/10/2023): Last Assessment & Plan: Acute on chronic, stable Patient with possible hx of pancreatitis and abdominal pain CT abdomen unremarkable on admission Lipase WNL on admission Mutliple negative GI workups in past with Dr. Woodard CT abdomen (03/29) unremarkable - Continue home medications including sucralfate QID, zofran PRN, and compazine PRN - Pain control with tylenol for mild pain, norco for moderate pain when tolerating PO-May repeat dose of Toradol - Continue to advance diet as tolerated Assessment & Plan (09/25/2023 12:25 PM CDT): - improving - f/u with GI Assessment & Plan (03/20/2023 11:07 AM HUMANITIES AND LANGUAGES PROFESSOR): - stable - continue current medication per GI Cyclic vomiting syndrome 02/14/2015 Overview (10/18/2018): Last Assessment & Plan: - established, controlled - continue home nexium Assessment & Plan (10/14/2022 8:30 PM CDT): - uncontrolled - continue zofran prn Sphincter of Oddi dysfunction Normocytic normochromic anemia Marijuana use Resolved Problems Problem Noted Date Diagnosed Date Resolved Date Nausea and vomiting 02/03/2023 03/18/20 23 Postprandial vomiting 02/03/20232023 Acute gastritis without hemorrhage 01/10/2023 09/25/2023 Acute dehydration 01/10/2023 09/25/2023 Dehydration 01/10/2023 09/25/2023 Elevated BP without diagnosis of hypertension 01/11/20 23 03/18/2023 Single episode of elevated blood pressure 01/10/2023 03/18/2023 Increased serum lipase level 01/10/2023 09/25/2023 Erythema 01/10/2023 03/18/2023 Hyperglycemia 01/10/2023 03/18/2023 Lip biting 01/10/2023 09/25/2023 Nodular acne 01/10/2023 03/18/2023 Partial small bowel obstruction (CMS/HCC) 01/10/2023 09/25/2023 SIRS (systemic inflammatory response syndrome) 01/10/2023 03/18/2023 Systemic inflammatory respon se syndrome (SIRS) 01/10/2023 09/25/2023 Left upper quadrant abdominal pain 01/10/2023 09/25/2023 Depression with somatization 01/10/2023 03/18/2023 Anxiety with somatization 01/10/2023 Gastroesophageal reflux dise ase with stricture 01/10/2023 09/25/2023 HTN (hypertension) 01/10/2023 Uncontrolled stage 2 hypertension 01/10/2023 09/25/2023 Intractable pain 10/18/2022 09/25/2023 Abdominal pain of multiple sites 10/18/2022 09/25/2023 Hypertension, essential 09/17/202209/08 Assessment & Plan (03/20/2023 11:08 AM HUMANITIES AND LANGUAGES PROFESSOR): - stable off meds - will monitor but suspect elevated BP in past was due to pain Assessment & Plan (10/14/2022 8:31 PM CDT): - stable but high BP today, may be due to pain - continue amlodipine - f/u for recheck of BP Assessment & Plan (09/17/2022 11:15 AM CDT): - stable - continue current medication Pancreatitis 09/02/2022 03/18/2023 GI bleed 06/28/2022 03/18/2023 Acute pancreatitis 02/07/2022 Folliculitis 01/08/2022 03/18/2023 Assessment & Plan (01/08/2022 12:46 PM CDT): - chronic, uncontrolled - start clindamycin gel daily x 7 days - ref to derm for eval. Manipulative behavior 07/14/20212023 Abdominal pain 06/27/2021 10/14/2022 Assessment & Plan (09/17/2022 11:15 AM CDT): - uncontrolled but improving - continue hydrocodone prn for next few days but slowly wean off so he can start tx for SIBO - restart creon for pancreatic insufficiency Frequent patient in emergency department 06/27/2021 09/25/2023 Drug-seeking behavior 06/27/20212023 History of 2019 novel trotter virus disease (COVID-19) 06/27/2021 09/17/2022 COVID-19 vaccine series completed 06/27/2021 09/17/2022 Overview (06/27/2021): Moderna x2 Acute on chronic pancreatitis ([facility]) 06/15/2021 09/25/2023 Hyperleukocytosis 06/15/2021 03/18/2023 Drug abuse and dependence ([facility]) 02/12/2021 03/18/2023 Assessment & Plan (02/12/2021 11:22 AM CDT): - using mariajuana occasionally; has had frequent rx for opioids in ER - pt claims at least several days since last ER visit with narcotics given - record review suggests at least 2 wks - will check UDS Acute recurrent pancreatitis 01/07/2021 09/25/2023 Other chronic pancreatitis 12/21/2020 0 09/25/2023 Assessment & Plan (03/26/2021 11:41 AM HUMANITIES AND LANGUAGES PROFESSOR): - stable today - continue current medications - f/u with Dr Woodard as planned - encouraged pt to come to clinic instead of going to ER next time he has abdominal pain Acute upper abdominal pain 12/19/2020 1 05/18/2022 Intractable epigastric abdominal pain 11/26/2020 11/29/2020 Rosacea 02/29/2020 03/26/2021 Assessment & Plan (02/29/2020 1:21 PM CDT): - facial lesions pt has been treating as foliculitis appear more like rosacea - will trial metrogel - f/u prn Hyperemesis 10/18/2019 09/25/2023 Anxiety 07/15/2019 03/18/2023 Overview (07/15/2019): - hx of anxiety, on amitriptyline 10mg qhs for his IBS like sx. Assessment & Plan (01/01/2021 12:09 PM CDT): - stable - continue current medication Assessment & Plan (02/29/2020 1:20 PM CDT): - moderate control - continue counseling and lexapro Assessment & Plan (02/07/2020 2:32 PM CDT): - stable - continue lexapro Assessment & Plan (07/15/2019 11:38 AM HUMANITIES AND LANGUAGES PROFESSOR): - stable - continue current plan Gastroesophageal reflux dise ase without esophagitis 07/15/2019 03/18/2023 Overview (07/15/2019): - GERD managed by Dr Woodard - Pt on omeprazole and carafate for sx control Assessment & Plan (01/01/2021 12:09 PM CDT): - stable - continue current medication Assessment & Plan (02/07/2020 2:32 PM CDT): - stable - continue current medication Assessment & Plan (07/15/2019 11:38 AM HUMANITIES AND LANGUAGES PROFESSOR): - stable - continue omeprazole and carafate Irritable bowel syndrome 07/15/2019 Overview (07/15/2019): - pt with abdominal cramping/pain regularly, hx of several normal scopes, followed by Dr Woodard - Sx improved with bentyl and amitriptyline - pt denies diarrhea and constipation Assessment & Plan (01/01/2021 12:09 PM CDT): - stable - continue current medication Assessment & Plan (12/03/2020 3:05 PM CDT): - uncontrolled - continue with meds per GI - f/u with GI - rec trial of edible marijuana to keep pain stable Assessment & Plan (02/29/2020 1:19 PM CDT): - uncontrolled - continue bentyl and lexapro - pt to obtain form for medical mariajuana and drop it off for me to sign Assessment & Plan (02/07/2020 2:34 PM CDT): - stable but still sx - discussed use of mariajuana for sx control - pt to investigate obtaining medical mariajuana card and will bring me the certifying paperwork if he decides to pursue it. - discussed need for pt to avoid mariajuana use when driving - f/u prn Assessment & Plan (07/15/2019 11:44 AM HUMANITIES AND LANGUAGES PROFESSOR): - stable - continue bentyl and amitriptyline per GI recs Viral illness 07/08/2019 02/12/2021 Assessment & Plan (07/09/2019 9:12 AM HUMANITIES AND LANGUAGES PROFESSOR): Medrol Dosepak as directed. Recommended Mucinex plain in the blue box as directed x 1 week. Instructed to increase clear liquids, rest, and vitamin C in diet. Advised to sleep with head elevated and use a cool mist vaporizer Vicks VapoRub at bedtime. Recommended follow-up with PCP if symptoms worsen, don't improve, or new symptoms develop. Colitis 02/18/2019 03/18/2023 Leukocytosis 10/18/2018 03/26/2021 Mild malnutrition 10/18/2018 03/18/2023 Assessment & Plan (12/03/2020 3:05 PM CDT): - continue with creon and mariajuana prn Other chronic pancreatitis 09/17/2018 1 05/26/2020 Overview (09/17/2018): Added automatically from request for surgery [id number] Assessment & Plan (02/12/2021 11:23 AM CDT): - encouraged pt to f/u with new GI - continue hyoscyamine Assessment & Plan (01/01/2021 12:10 PM CDT): - continue prn oxycodone for now - discussed need to wean off of this as this is not a viable assistant terminal manager solution - will ref to pain management to see if they have any recs for chronic abdominal pain due to chronic pancreatitis Assessment & Plan (12/03/2020 3:04 PM CDT): - uncontrolled - start hyocyamine per GI rec - f/u with GI Anxiety and depression 03/30/201703/18 Overview (07/15/2019): - Pt with hx of depression and anxeity - has been on wellbutrin in the past, currently only on amitriptyline 10mg qhs to help with his IBS like sx Assessment & Plan (02/07/2020 2:33 PM CDT): - stable - continue current medication Assessment & Plan (07/15/2019 11:36 AM HUMANITIES AND LANGUAGES PROFESSOR): - controlled - continue current plan Chronic abdominal pain 03/18 Assessment & Plan (02/12/2021 11:21 AM CDT): - chronic pain, unclear etiology but ddx includes chronic pancreatitis, sphincter of oddi problem, opioid abuse, cyclic vomiting syndrome - pt has not obtained narcotics from the ER for the last few visits - will check UDS today - rec pt call to schedule with new GI dr as well as pain management - continue duloxetine bid - continue hyocyamine - toradol injection today - goal to avoid ER over the next week - continue zofran prn; add tramadol 7 tabs for breakthrough pain - goal <1 tab/day - f/u with me in 1 wk Assessment & Plan (02/07/2020 2:33 PM CDT): - uncontrolled - pt considering medical mariajuana - f/u prn Cannabinoid hyperemesis syndrome 09/25/2023 Intractable vomiting 021 Encounters Date Type Department Care Team Description 06/19/2024 7:49 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 - 06/19/2024 11:01 PM [facility] Emergency [facility] Emergency Department [address] [place] [address] Terri Fuentes MD Chronic abdominal pain (Primary Dx); Nausea and vomiting, unspecified vomiting type; Leukocytosis, unspecified type Discharge Disposition: Discharge to home or self care 05/30/2024 Documentation [facility] Medical Office Bldg 1 OP Physical Therapy [address] [place] [phone] Clem Traylor, GIN INSPECTOR No Show 05/26/2024 7:15 AM [facility] Medical Office Bldg 1 OP Physical Therapy [address] [place] [phone] Nelda Perez, PT Neck pain (Primary Dx) 05/26/2024 7:00 AM [facility] Medical Office Bldg 1 OP Physical Therapy [address] [place] [phone] Yuliya Fernández, CARLOS ALBERTO Neck pain (Primary Dx) 05/20/2024 4:35 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 - 05/20/2024 9:[address] [address] Abdominal pain (Primary Dx) Discharge Disposition: Discharge to home or self care 05/19/2024 12:45 PM [facility] Medical Office Bldg 1 OP Physical Therapy [address] [place] [phone] Clem Traylor, GIN INSPECTOR Neck pain (Primary Dx) 05/12/2024 7:45 AM [facility] Medical Office Bldg 1 OP Physical Therapy [address] [place] [phone] Clem Traylor, CARLOS ALBERTO Neck pain (Primary Dx) 05/05/2024 7:45 AM HUMANITIES AND LANGUAGES PROFESSOR Therapy [facility] Medical Office Bldg 1 OP Physical Therapy [address] [place] [phone] Clem Traylor, GIN INSPECTOR Neck pain (Primary Dx) 04/27/2024 Documentation [facility] Medical Office Bldg 1 OP Physical Therapy [address] [place] [phone] Clem Traylor, GIN INSPECTOR No Show 04/25/2024 12:45 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 Therapy [facility] Medical Office Bldg 1 OP Physical Therapy [address] [place] [phone] Paige Mendez, CARLOS ALBERTO Neck pain (Primary Dx) 04/20/2024 2:56 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 - 04/20/2024 6:30 PM [facility] Emergency [facility] Emergency Department [address] [place] [address] Blue Warren MD Chronic abdominal pain (Primary Dx) Discharge Disposition: Discharge to home or self care 04/15/2024 7:45 AM HUMANITIES AND LANGUAGES PROFESSOR Therapy [facility] Medical Office Bldg 1 OP Physical Therapy [address] [place] [phone] Isreal Healy, HUMBERTO Neck pain (Primary Dx) 04/15/2024 Plan of Care Documentation [facility] Medical Office Bldg 1 OP Physical Therapy [address] [place] [phone] 04/01/2024 Telephone [facility] Medical Group Primary Care [address] [place] [phone] Td Lopez MD 03/25/2024 11:26 AM HUMANITIES AND LANGUAGES PROFESSOR - 03/25/2024 11:59 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 Hospital Encounter [facility] MOB 1 DIAG IMG [address] [place] [phone] Neck pain Discharge Disposition: Discharge to home or self care 03/25/2024 10:45 AM HUMANITIES AND LANGUAGES PROFESSOR Office Visit [facility] Medical Group Primary [address] [phone] Td Lopez MD Other chronic pancreatitis (HCC) (Primary Dx); Dermatitis; Neck pain; Sphincter of Oddi dysfunction from Last 3 Months Immunizations Name Administration Dates Next Due Influenza, Quadrivalent, Spl it, Preservative Free, Intramuscular 03/20/2023,02/12/2021,02/29/2020,02/09 Influenza, Trivalent, Preser vative Free, Intramuscular 03/25/2024 Influenza, Unspecified 02/08/2022,2019(Deferred: Patient Refused) Moderna SARS-CoV-2 Monovalen t Vaccination (12+ YRS) 11/02/2020,10/05/2020 Moderna Sars-cov-2 Monovalen t Booster Vaccination .25 Ml dose (12+ YRS) 10/29/2021 Tdap 10/29/2021 Surgical History Surgery Date Site/Laterality Comments LAPAROSCOPIC CHOLECYSTECTOMY ERCP Medical History Medical History Date Comments Pancreatitis Sphincter of Oddi dysfunction GERD (gastroesophageal reflux disease) Cyclic vomiting syndrome Cannabis abuse with cannabis-induced disorder ([facility]/HCC) (HCC) Anxiety and depression Pancreatic insufficiency Drug-seeking behavior Manipulative behavior Family History Medical History Relation Name Comments Osteoarthritis Mother Family histor y of osteoarthritis - (Added by TW Conv) Relation Name Status Comments Father Alive Mother Alive Social History Tobacco Use Types Packs/Day Years Used Date Smoking Tobacco: Every Day Cigarettes Smokeless Tobacco: Never Tobacco Cessation:Ready to Q uit: No; Counseling Given: Yes Alcohol Use Standard Drinks/Week Comments Not Currently 0 (1 standard drink = 0.6 oz pur e alcohol) [facility] Utilities Answer Date Recorded In the past 12 months has [employer], gas, oil, or water [employer] threatened to shut off services in your home? No 09/21/2023 Social Connection and Isolat ion Panel [NHANES] Answer Date Recorded In a typical week, how many times do you talk on the phone with family, friends, or neighbors? More than three times a week 09/21/2023 How often do you get togethe r with friends or relatives? More than three times a week 09/21/2023 How often do you attend [facility] or voodoo services? Never 09/21/2023 Do you belong to any clubs o r organizations such as pentecostalism groups, unions, fraternal or athletic groups, or school groups? No 09/21/2023 How often do you attend meet ings of the clubs or organizations you belong to? Never 09/21/2023 Are you , , di vorced, , never , or living with a partner? Never 09/21/2023 AUDIT-C Answer Date Recorded Q1: How often do you have a drink containing alcohol? Never 11/15/2023 Q2: How many drinks containi ng alcohol do you have on a typical day when you are drinking? Patient does not drink Q3: How often do you have si x or more drinks on one occasion? Never 11/15/2023 Overall Financial Resource Strain (CARDIA) Answe r Date Recorded How hard is it for you to pa y for the very basics like food, housing, medical care, and heating? Not very hard 09/21/2023 PHQ-2 Answer Date Recorded PHQ-2 Total Score (If total score is 3 or more points, staff should administer the PHQ-9) 4 03/25/2024 Hunger Vital Sign Answer Date Recorded Within the past 12 months, y ou worried that your food would run out before you got the money to buy more. Never true 09/21/19 24 Within the past 12 months, t he food you bought just didn't last and you didn't have money to get more. Never true 09/21/2023 PRAPARE - Transportation Answer Date Re corded In the past 12 months, has l ack of transportation kept you from medical appointments or from getting medications? No 09/08 In the past 12 months, has l ack of transportation kept you from meetings, work, or from getting things needed for daily living? No 09/21/2023 Housing Stability Vital Sign Answer [place] e Recorded In the last 12 months, was t here a time when you were not able to pay the mortgage or rent on time? No 09/21/2023 In the last 12 months, how many places have you lived? 1 09/21/2023 In the last 12 months, was t here a time when you did not have a steady place to sleep or slept in a halfway (including now)? No 09/21/2023 Personal Safety Answer Date Recorded Have you ever been in or are you currently in a harmful physical or emotional relationship or is someone making you feel afraid or unsafe? Denies 06/19/2024 Sex and Gender Information Value Date Recorded Sex Assigned at Not on file Legal Sex Male 3:38 AM HUMANITIES AND LANGUAGES PROFESSOR Gender Identity Not on file Sexual Orientation Not on file Obstetrics History Last Filed Vital Signs Vital Sign Reading Time Taken Comments Blood Pressure 137/99 06/19/2024 10:30 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 Pulse 93 06/19/2024 10:30 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 Temperature 36.7 C (98.1 F) 06/19/2024 6:48 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 Respiratory Rate 23 06/19/2024 10:30 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 Oxygen Saturation 97% 06/19/2024 10:30 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 Inhaled Oxygen Concentration - - Weight 74.5 kg (164 lb 3.9 oz) 06/19/2024 6:48 P M HUMANITIES AND LANGUAGES PROFESSOR Height 177.8 cm (5' 10 ) 06/19/2024 6:48 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 Body Mass Index 23.57 06/19/2024 6:48 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 Plan of Treatment Health Maintenance Due Date Last Done Comments Hepatitis C Screening 1981 Pneumococcal vaccine <65 (1 of 2 - PCV) 1987 Hepatitis B Screening 1999 Covid-19 Vaccine ( season) 2024 10/29/2021, 11/02/2020, 10/05/2020 Regular Well Visit/Exam 18-64 09/24/2024 09/25/2023, 09/17/2022, 02/29/2020 Depression Screening 03/25/2025 03/25/2024, 03/25/2024, 03/20/2023, Additional history exists DTaP/Tdap/Td Vaccine (2 - Td or Tdap) 10/30/2031 10/29/2021 Influenza Vaccine Completed 03/25/2024, , 02/08/2022, Additional history exists HPV Vaccines Aged Out No longer eligi ble based on patient's age to complete this topic Varicella Vaccines Discontinued Medical Devices Explanted Type Area Directional Drill Operator Device Identifier Shelf Expiration Date Model / Serial / Lot [employer] 6572 Connell Flexi-Stent 7fr 5cm Small Pigtail Flexible .035in Stent - [id number] Implanted:Qty: 1 on 09/18/2018 by Vimal Woodruff MD at [facility] Explanted:Qty: 1 on 09/20/2018 at [facility] Stent N/A: Pancreas [employer] 06/10/2023 [id number] / / [id number] Conmed Gina [id number] Angelica Viabil 10mm 8.5fr 6cm 200cm Fully Covered Self Expand Pull - [id number] - [id number] Implanted:Qty: 1 on 09/18/2018 by Vimal Woodruff MD at [facility] Explanted:Qty: 1 on 09/20/2018 at [facility] Stent N/A: Bile Duct Conmed Gina 06/29/2021 [id number] / [id number] / [employer] Connell Flexi-Stent 7fr 9cm Small Pigtail Flexible .035in Stent [id number] - [id number] Implanted:Qty: 1 on 02/07/2022 by Vimal Woodruff MD at [facility] Explanted:Qty: 1 on 02/10/2022 by Vimal Woodruff MD at [facility] Stent N/A: Pancreas [employer] 09/07/2026 [id number] / / [id number] [employer] Gina Wallflex 10mm X 60mm Fully Covered Biliary [id number] - [id number] Implanted:Qty: 1 on 02/07/2022 by Vimal Woodruff MD at [facility] Explanted:Qty: 1 on 02/10/2022 by Vimal Woodruff MD at [facility] Stent N/A: Bile Duct [employer] Gina 11/04/2023 [id number] / / [id number] [employer] Connell Flexi-Stent 7fr 9cm Small Pigtail Flexible .035in Stent [id number] - [id number] Implanted:Qty: 1 on 09/21/2023 by Vimal Woodruff MD at [facility] Explanted:Qty: 1 on 09/23/2023 by Vimal Woodruff MD at [facility] Stent N/A: Pancreas [employer] 03/11/2028 [id number] / / [id number] Description:Not present at b eginning of case. Self migrated out [employer] Gina Wallflex 10mm X 60mm Fully Covered Biliary [id number] - [id number] Implanted:Qty: 1 on 09/21/2023 by Vimal Woodruff MD at [facility] Explanted:Qty: 1 on 09/23/2023 by Vimal Woodruff MD at [facility] Stent N/A: Bile Duct [employer] Gina 08/02/2025 [id number] / / [id number] Procedures Procedure Name Priority Date/Time Associated Diagnosis Comments URINALYSIS, MICROSCOPIC ONLY STAT 06/19/2024 7:06 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 URINALYSIS AND REFLEX TO MICROSCOPIC AND CULTURE STAT 06/19/2024 7:06 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 ECG 12-LEAD STAT 06/19/2024 7:04 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 EGFR STAT 06/19/2024 6:56 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 DIFFERENTIAL AUTO STAT 06/19/2024 6:5 6 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 TROPONIN T HIGH-SENSITIVITY SERIES (BASELINE, 2HR, 4HR, 6HR) STAT 06/19/2024 6:56 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 LIPASE STAT 06/19/2024 6:56 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 COMPREHENSIVE METABOLIC PANEL STAT 06/19/2024 6:56 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 CBC WITH AUTO DIFFERENTIAL STAT 06/19/2024 6:56 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 DRUGS OF ABUSE SCREEN, URINE WITHOUT CONFIRMATION STAT 05/20/2024 7:37 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 CT ABDOMEN PELVIS W CONTRAST ED 05/20/2024 5:56 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 SEPSIS LACTATE WITH REFLEX STAT 05/20/2024 5:16 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 EGFR STAT 05/20/2024 4:03 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 DIFFERENTIAL AUTO STAT 05/20/2024 4:0 3 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 LIPASE STAT 05/20/2024 4:03 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 COMPREHENSIVE METABOLIC PANEL STAT 05/20/2024 4:03 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 CBC WITH AUTO DIFFERENTIAL STAT 05/20/2024 4:03 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 URINALYSIS AND REFLEX TO MICROSCOPIC AND CULTURE STAT 05/20/2024 4:03 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 URINALYSIS, MICROSCOPIC ONLY STAT 04/20/2024 4:15 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 URINALYSIS AND REFLEX TO MICROSCOPIC AND CULTURE STAT 04/20/2024 4:15 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 CT ABDOMEN PELVIS W CONTRAST ED 04/20/2024 2:02 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 ECG 12-LEAD STAT 04/20/2024 12:58 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 EGFR STAT 04/20/2024 12:56 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 DIFFERENTIAL AUTO STAT 04/20/2024 12: 56 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 LIPASE STAT 04/20/2024 12:56 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 COMPREHENSIVE METABOLIC PANEL STAT 04/20/2024 12:56 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 CBC WITH AUTO DIFFERENTIAL STAT 04/20/2024 12:56 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 XR SPINE CERVICAL 2 OR 3 VIEWS Schedule Routine, Read Routine (OP Routine) 03/25/2024 11:32 AM HUMANITIES AND LANGUAGES PROFESSOR Neck pain from Last 3 Months Results * (ABNORMAL) Urinalysis reflex to microscopic and culture Urine (06/19/2024 7:06 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) Color, ur Yellow Yellow Comment:Testing performed by : [address] [address] Clarity, ur Clear Clear NEEL Comment:Testing performed by : [address] [address] Specific gravity, ur 1.023 1.003 - 1.030 NEEL Comment:Testing performed by : [address] [address] pH, urine 6.0 NEEL Comment: Interpretive Data U rine pH is affected by diet, medications, systemic acid-base disturbances, and renal tubular function. pH may affect urinary stone formation. For example, urine pH below 6.0 may help reduce the tendency for calcium phosphate stones and pH greater than 6.0 may reduce the tendency for uric acid stone formation. Source: [place] [employer] Current Interpretive Data was last revised on 2017 Testing performed by: [address] [address] Protein, ur ql Trace(A) Negative NEEL Comment:Testing performed by : [address] [address] Glucose, ur ql Negative Negative NEEL Comment:Testing performed by : [address] [address] Ketones, ur 1+(A) Negative NEEL Comment:Testing performed by : [address] [address] Bilirubin, ur Negative Negative NEEL Comment:Testing performed by : [address] [address] Blood, ur Negative Negative NEEL Comment:Testing performed by : [address] [address] Urobilinogen, ur <2.0 <2.0 mg/dL NEEL Comment:Testing performed by : [address] [address] Nitrite, ur Negative Negative NEEL Comment:Testing performed by : [address] [address] Leukocyte esterase, ur Negative Negative NEEL Comment:Testing performed by : [address] [address] UA reflex comment Reflex to microscopic UA will be performed. NEEL Comment:Testing performed by : [address] [address] Urine 06/19/2024 7:06 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 06/19/2024 7:11 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 us Terri Fuentes MD LAB MICROBIOLOGY - GENER AL ORDERABLES Final Result Performing Organization Address [facility] Co de Phone Number NEEL [facility] Department [place] [address] * (ABNORMAL) Urinalysis, microscopic only (06/19/2024 7:06 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) WBC, ur 0-5 0 - 5 /HPF Comment:Testing performed by : [address] [address] RBC, ur 0-2 0 - 2 /HPF NEEL Comment:Testing performed by : [address] [address] Bacteria, ur Trace(A) NEEL Comment:Testing performed by : [address] [address] Mucous, ur Present(A) NEEL Comment:Testing performed by : [address] [address] Culture Reflex Comment Reflex conditions for urine culture (WBC >10) not met. NEEL Comment:Testing performed by : [address] [address] Urine 06/19/2024 7:06 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 06/19/2024 7:11 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 us Terri Fuentes MD LAB URINE ORDERABLES Fin al Result Performing Organization Address City/[facility] Co de Phone Number NEEL [address] [facility] Department [place] [address] * ECG 12 lead (06/19/2024 7:04 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) Ventricular Rate EKG/Min 67 BPM [facility] Atrial Rate 67 BPM [facility] VT-Interval (MSEC) 106 ms [facility] QRS-Interval (MSEC) 102 ms [facility] QT-Interval (MSEC) 410 ms [facility] QTc 433 ms [facility] P [place] 28 degrees [facility] R [place] 37 degrees [facility] T [place] 50 degrees [facility] Diagnosis Sinus rhythm with short VT with sinus arrhythmia Within normal limits When compared with ECG of 20-APR-2024 12:58, No significant change Confirmed by SULTAN DE JESUS M.D. ([id number]) on 06/20/2024 1:51:59 PM [facility] 06/19/2024 7:04 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 06/20/2024 1:51 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 us Terri Fuentes MD ECG ORDERABLES Final Re sult Performing Organization Address [facility] de Phone Number [facility] * Troponin T high-sensitivity series (baseline, 2hr, 4hr, 6hr) (06/19/2024 6:56 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) Pathologist [facility] Trop T hs <6 <=22 ng/L Comment: Interpretive Data For further hscTnT resources including the diagnostic algorithm and an aid in interpretation, copy and paste this link: [email or web address] Current Interpretive Data last revised 2020. Testing performed by: [facility], [address] [place] [address]., [address] Blood 06/19/2024 6:56 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 06/19/2024 7:03 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 us Terri Fuentes MD LAB BLOOD ORDERABLES Fin al Result Performing Organization Address [facility] Co de Phone Number NEEL [address] [facility] Department [place] [address] * eGFR (06/19/2024 6:56 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) Pathologist [facility] eGFR >90 >=60 mL/min/1. 73 m2 Comment: Interpretive Data Reference Interval Normal >/= 90 mL/min/1.73m2 Mildly decreased* 60 - 89 mL/min/1.73m2 Mildly to moderately decreased 45 - 59 mL/min/1.73m2 Moderately to severely decreased 30 - 44 mL/min/1.73m2 Severely decreased 15 - 29 mL/min/1.73m2 Kidney Failure < 15 mL/min/1.73m2 *Relative to young adult level Estimated glomerular filtration rate is determined by the 2020 CKD-EPI equation recommended by the National Kidney Foundation (A Unifying Approach to GFR Estimation: Recommendations of the NKF-ASK Task Force on Reassessing the Inclusion of Race in Diagnosing Kidney Disease, JASN 2020). The CKD-EPI equation should not be used for patients with unstable renal function and has not been validated in children and those over 70. Current interpretive data was last reviewed 2021. Testing performed by: [address] [address] Blood 06/19/2024 6:56 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 06/19/2024 7:03 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 us Terri Fuentes MD LAB BLOOD ORDERABLES Fin al Result NEEL [address] [facility] Department [place] [address] * (ABNORMAL) Differential, auto (06/19/2024 6:56 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) Pathologist [facility] Neutrophil abs 17.4(H) 1.5 - 6.5 K/cumm Comment:Testing performed by : [address] [address] Imm gran abs 0.1 0.0 - 0.1 K/cumm NEEL SMITH Comment:Testing performed by : [address] [address] Lymphocyte abs 1.2 0.8 - 3.3 K/cumm [facility] Comment:Testing performed by : [facility], [address] [place] [address]., [address] Monocyte abs 1.1(H) 0.2 - 0.8 K/cumm [facility] Comment:Testing performed by : [address], [place]., [address] Eosinophil abs 0.0 0.0 - 0.5 K/cumm [facility] Comment:Testing performed by : [address], [place]., [address] Basophil abs 0.1 0.0 - 0.1 K/cumm [facility] Comment:Testing performed by : [address] [address] Neutrophil pct 87.3 % [facility] Comment: Interpretive Data Percent cell count reference ranges are not reported, since discordance with absolute values may lead to misinterpretation of CBC data. Current Interpretive Data was last revised on 2017. Testing performed by: [address] [address] Imm gran pct 0.7 % [facility] Comment: Interpretive Data Percent cell count reference ranges are not reported, since discordance with absolute values may lead to misinterpretation of CBC data. Current Interpretive Data was last revised on 2017. Testing performed by: [address] [address] Lymphocyte pct 6.2 % [facility] Comment: Interpretive Data Percent cell count reference ranges are not reported, since discordance with absolute values may lead to misinterpretation of CBC data. Current Interpretive Data was last revised on 2017. Testing performed by: [address] [address] Monocyte pct 5.5 % [facility] Comment: Interpretive Data Percent cell count reference ranges are not reported, since discordance with absolute values may lead to misinterpretation of CBC data. Current Interpretive Data was last revised on 2017. Testing performed by: [address] [address] Eosinophil pct 0.0 % [facility] Comment: Interpretive Data Percent cell count reference ranges are not reported, since discordance with absolute values may lead to misinterpretation of CBC data. Current Interpretive Data was last revised on 2017. Testing performed by: [address] [address] Basophil pct 0.3 % NEEL SMITH Comment: Interpretive Data Percent cell count reference ranges are not reported, since discordance with absolute values may lead to misinterpretation of CBC data. Current Interpretive Data was last revised on 2017. Testing performed by: [address] [address] Blood 06/19/2024 6:56 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 06/19/2024 7:03 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 us Terri Fuentes MD LAB BLOOD ORDERABLES Fin al Result NEEL [facility] Department [place] [address] * (ABNORMAL) CBC with auto differential (06/19/2024 6:56 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) WBC 20.0(H) 3.8 - 9.9 K/cumm Comment:Testing performed by : [address] [address] Hgb 13.8 13.0 - 17.5 g/dL NEEL SMITH Comment:Testing performed by : [address] [address] Hct 41.3 38.9 - 50.3 % NEEL SMITH Comment:Testing performed by : [address] [address] Plt 330 150 - 400 K/cumm NEEL SMITH Comment:Testing performed by : [address] [address] MPV 9.8 9.1 - 12.3 fL NEEL SMITH Comment:Testing performed by : [address] [address] RBC 5.02 4.30 - 5.80 M/cumm NEEL SMITH Comment:Testing performed by : [address] [address] MCV 82.3 81.3 - 96.4 fL NEEL SMITH Comment:Testing performed by : [address], [address] MCH 27.5 27.1 - 33.3 pg NEEL SMITH Comment:Testing performed by : [address] [address] MCHC 33.4 32.3 - 35.7 g/dL NEEL SMITH Comment:Testing performed by : [address] [address] RDW CV 15.8(H) 11.1 - 14.9 % NEEL Comment:Testing performed by : [address], [address] RDW SD 46.4 35.7 - 48.1 fL NEEL SMITH Comment:Testing performed by : [address] [address] NRBC abs 0.00 0.00 - 0.01 K/cumm NEEL Comment:Testing performed by : [address], [address] Blood (Blood, Venous) 06/19/2024 6:56 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 06/19/2024 7:03 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 Terri Fuentes MD LAB BLOOD ORDERABLES Fin al Result Performing Organization Address City/[facility]/ZIP Co de Phone Number [place] [phone] [facility] Department [place] [address] * Lipase (06/19/2024 6:56 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) Lipase 90 10 - 99 Units/L Comment:Testing performed by : [address] [address] Blood (Blood, Venous) 06/19/2024 6:56 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 06/19/2024 7:03 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 Terri Fuentes MD LAB BLOOD ORDERABLES Fin al Result NEEL [address] [facility] Department [place] [address] * Comprehensive metabolic panel (06/19/2024 6:56 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) Sodium 142 135 - 145 mmol/L Comment:Testing performed by : [facility], [address] [place] [address]., [address] Potassium, pl 4.2 3.3 - 4.9 mmol/L NEEL Comment:Testing performed by : [address], [place]., [address] Chloride 106 97 - 110 mmol/L NEEL Comment:Testing performed by : [address] [address] CO2 22 22 - 32 mmol/L NEEL Comment:Testing performed by : [address], [place]., [address] Anion gap 14 2 - 15 mmol/L NEEL Comment:Testing performed by : [address] [address] BUN 15 6 - 25 mg/dL NEEL Comment:Testing performed by : [address], [place]., [address] Creatinine 0.97 0.80 - 1.30 mg/dL NEEL Comment:Testing performed by : [address] [address] Glucose 144 70 - 199 mg/dL NEEL Comment: Interpretive Data Fasting glucose >/= 126 mg/dl is diagnostic for diabetes. Fasting is defined as no caloric intake for at least 8 hours. Fasting glucose between 100 mg/dl to 125 mg/dl is diagnostic of prediabetes. In a patient with classic symptoms of hyperglycemia or hyperglycemic crisis, a random glucose >/= 200 mg/dl is diagnostic for diabetes. In the absence of unequivocal hyperglycemia, results should be confirmed by repeat testing. The classification and Diagnosis of Diabetes Diabetes Care 202; 46: S19-S40. Current interpretive data was last revised 2022. Testing performed by: [address] [address] Calcium 9.9 8.5 - 10.3 mg/dL NEEL Comment:Testing performed by : [address] [address] Bilirubin, total 0.4 0.1 - 1.2 mg/dL NEEL Comment:Testing performed by : [address] [address] Protein, pl 7.4 6.5 - 8.5 g/dL NEEL Comment:Testing performed by : [address], [place]., [address] Albumin 4.5 3.5 - 5.0 g/dL NEEL Comment:Testing performed by : [address], [place]., [address] Alk phos 92 40 - 130 Units/L NEEL Comment:Testing performed by : [address] [address] ALT 26 7 - 55 Units/L NEEL Comment:Testing performed by : [address] [address] AST 25 10 - 50 Units/L [facility] Comment:Testing performed by : [address], [place]., [address] Blood 06/19/2024 6:56 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 06/19/2024 7:03 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 us Terri Fuentes MD LAB BLOOD ORDERABLES Fin al Result [facility] [address] [facility] Department [place] [address] * (ABNORMAL) Drugs of Abuse Screen, Urine without Confirmation (05/20/2024 7:37 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) Pathologist [facility] Amphetamine, ur Not Detected CutOff 500ng/mL Comment: Interpretive Data - Amphetamines: Samples containing greater than 500 ng/mL d-methamphetamine or other cross-reacting amphetamine compounds are reported as positive. Amphetamine immunoassays are subject to significant false positive rates due to cross-reactivity of non-amphetamine drugs. Confirmatory testing required for definitive results. Current Interpretive Data was last reviewed 2022. Barbiturates, ur Not Detected CutOff 200ng/mL NEEL Comment: Interpretive Data - Barbiturates: Samples containing greater than 200 ng/mL secobarbital or other cross-reacting barbiturate compounds are reported as positive. False positive and false negative results are possible. Confirmatory testing required for definitive results. Current Interpretive Data was last reviewed 2022. Benzodiazepines, ur Not Detected CutOff 100ng/mL NEEL Comment: Interpretive Data - Benzodiazepines: Samples containing greater than 100 ng/mL nordiazepam or other cross-reacting compounds are reported as positive. False positive and false negative results are possible. Confirmatory testing required for definitive results. Current Interpretive Data was last reviewed 2022. Cannabinoids, ur Screen Positive, presumptive (A) CutOff 50 ng/[facility] Comment: Interpretive Data - Cannabinoids: Samples containing greater than 50 ng/mL delta-9 THC -COOH or other cross- reacting compounds are reported as positive. False positive and false negative results are possible. Confirmatory testing required for definitive results. Current Interpretive Data was last reviewed 2022. Cocaine, ur Not Detected CutOff 150ng/mL [facility] Comment: Interpretive Data - Cocaine: Samples containing greater than 150 ng/mL benzoylecgonine or other cross- reacting compounds are reported as positive. False positive and false negative results are possible. Confirmatory testing required for definitive results. Current Interpretive Data was last reviewed 2022. Fentanyl, Ur Not Detected CutOff 5 ng/mL [facility] Comment: Interpretive Data - Fentanyl: Samples containing greater than 5 ng/mL norfentanyl, fentanyl, or other cross-reacting fentanyl compounds are reported as positive. False positive and false negative results are possible. Confirmatory testing required for definitive results. Current Interpretive Data was last reviewed 2023. Methadone, ur Not Detected CutOff 300ng/mL NEEL Comment: Interpretive Data - Methadone: Samples containing greater than 300 ng/mL d,l-methadone or other cross-reacting compounds are reported as positive. False positive and false negative results are possible. Confirmatory testing required for definitive results. Current Interpretive Data was last reviewed 2022. Opiates, ur Not Detected CutOff 300ng/mL NEEL Comment: Interpretive Data - Opiates: Samples containing greater than 300 ng/mL morphine or other cross-reacting compounds are reported as positive. False positive and false negative results are possible. Confirmatory testing required for definitive results. Current Interpretive Data was last reviewed 2022. Oxycodone, ur Not Detected CutOff 100ng/mL NEEL Comment: Interpretive Data - Oxycodone: Samples containing greater than 100 ng/mL oxycodone or other cross-reacting compounds are reported as positive. False positive and false negative results are possible. Confirmatory testing required for definitive results. Current Interpretive Data was last reviewed 2022. Phencyclidine, ur Not Detected CutOff 25 ng/mL NEEL Comment: Interpretive Data - Phencyclidine: Samples containing greater than 25 ng/mL phencyclidine or other cross-reacting compounds are reported as positive. False positive and false negative results are possible. Confirmatory testing required for definitive results. Current Interpretive Data was last reviewed 2022. Urine Creatinine 160 mg/dL NEEL Comment: Interpretive Data Urine Creatinine: < 10 mg/dL is extremely dilute = or > 10 but < 20 mg/dL is dilute = or > 20 mg/dL is normal Current Interpretive Data was last revised on 2017. Urine 05/20/2024 7:37 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 05/20/2024 7:40 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 Narrative [facility] - 05/20/2024 8:04 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 Drug of Abuse screening is performed by immunoassay for medical purposes only. This is not to be used for Pain Management purposes. Kelly LAWTON LAB URINE ORDERABLES F inal Result Performing Organization Address City/State/[facility] Co de Phone Number [facility] [address] [facility] [place] [address] * CT Abdomen Pelvis W Contrast (05/20/2024 5:56 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) Anatomical Region Laterality Modality Body N/A Computed Tomogra phy 05/20/2024 6:54 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 Narrative 05/20/2024 7:00 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 EXAM DESCRIPTION: CT ABDOMEN PELVIS W CONTRAST REASON FOR STUDY: Abdominal pain, acute, nonlocalized Pt c/o abdominal pain q3amyqn with NV. Hx: cholecystectomy TECHNIQUE: CT scan of the abdomen and pelvis performed with intravenous and without oral contrast using helical scanning technique with dynamic intravenous contrast injection. Reconstructed coronal and sagittal MPR images reviewed. All images stored on PACS. Automated exposure control was used as a dose optimization technique for this examination. CONTRAST TYPE/DOSE: 100mL of IOVERSOL 350 MG IODINE/ML INTRAVENOUS SYRINGE injected via intravenous COMPARISON: 04/20/2024 FINDINGS: LOWER CHEST: No significant pulmonary abnormalities. No effusion. LIVER: Normal size. No identified cystic or solid masses. GALLBLADDER: Surgically absent. BILE DUCTS: No intrahepatic or extrahepatic ductal dilatation. SPLEEN: Normal size. No focal lesions. PANCREAS: No identified cystic or solid masses. No significant calcifications. No adjacent inflammation or peripancreatic fluid collections. Pancreatic duct not dilated. ADRENALS: Normal. KIDNEYS/URINARY TRACT: No identified significant cystic or solid masses. No visualized stones. No hydronephrosis or hydroureter. Symmetric enhancement. Urinary bladder is unremarkable. GI: No dilated bowel loops. No obvious wall thickening. Normal appendix. No significant diverticular disease. PERITONEUM: No ascites or free air. RETROPERITONEUM: No mass or adenopathy. REPRODUCTIVE: No significant abnormality. VASCULATURE: No abdominal aortic aneurysm. MUSCULOSKELETAL: No significant abnormality. OTHER: No other abnormality. IMPRESSION: No acute finding. THIS IS AN ELECTRONICALLY VERIFIED FINAL REPORT 05/20/2024 7:00 PM - Electronically signed by Jose Francisco Jesus M.D. KT T: Report ID: [id number] Reading Location: [place] [address] Procedure Note Jose Francisco Jesus MD - 05/20/2024 EXAM DESCRIPTION: CT ABDOMEN PELVIS W CONTRAST REASON FOR STUDY: Abdominal pain, acute, nonlocalized Pt c/o abdominal pain [id number] with NV. Hx: cholecystectomy TECHNIQUE: CT scan of the abdomen and pelvis performed with intravenousand without oral contrast using helical scanning technique with dynamic intravenous contrast injection. Reconstructed coronal and sagittal MPRimages reviewed. All images stored on PACS. Automated exposure control was usedas a dose optimization technique for this examination. CONTRAST TYPE/DOSE: 100mL of IOVERSOL 350 MG IODINE/ML INTRAVENOUSSYRINGE injected via intravenous COMPARISON: 04/20/2024 FINDINGS: LOWER CHEST: No significant pulmonary abnormalities. Noeffusion. LIVER: Normal size. No identified cystic or solid masses. GALLBLADDER: Surgically absent. BILE DUCTS: No intrahepatic or extrahepatic ductal dilatation. SPLEEN: Normal size. No focal lesions. PANCREAS: No identified cystic or solid masses. No significant calcifications. No adjacent inflammation or peripancreatic fluidcollections. Pancreatic duct not dilated. ADRENALS: Normal. KIDNEYS/URINARY TRACT: No identified significant cystic or solid masses.No visualized stones. No hydronephrosis or hydroureter. Symmetricenhancement. Urinary bladder is unremarkable. GI: No dilated bowel loops. No obvious wall thickening. Normalappendix. No significant diverticular disease. PERITONEUM: No ascites or free air. RETROPERITONEUM: No mass or adenopathy. REPRODUCTIVE: No significant abnormality. VASCULATURE: No abdominal aortic aneurysm. MUSCULOSKELETAL: No significant abnormality. OTHER: No other abnormality. IMPRESSION: No acute finding. THIS IS AN ELECTRONICALLY VERIFIED FINAL REPORT 05/20/2024 7:00 PM - Electronically signed by Jose Francisco Jesus M.D. KT T: Report ID: [id number] Reading Location: [place] [address] PROCEDURES Renee l Result * Sepsis Lactate w/ Reflex (05/20/2024 5:16 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) [facility] Sepsis Lactate 1.5 0.7 - 2.0 mmol/L Blood 05/20/2024 5:16 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 05/20/2024 5:18 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 Kelly LAWTON LAB BLOOD ORDERABLES F inal Result NEEL [address] [facility] Department [place] [address] * eGFR (05/20/2024 4:03 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) [facility] eGFR >90 >=60 mL/min/1. 73 m2 Comment: Interpretive Data Reference Interval Normal >/= 90 mL/min/1.73m2 Mildly decreased* 60 - 89 mL/min/1.73m2 Mildly to moderately decreased 45 - 59 mL/min/1.73m2 Moderately to severely decreased 30 - 44 mL/min/1.73m2 Severely decreased 15 - 29 mL/min/1.73m2 Kidney Failure < 15 mL/min/1.73m2 *Relative to young adult level Estimated glomerular filtration rate is determined by the 2020 CKD-EPI equation recommended by the National Kidney Foundation (A Unifying Approach to GFR Estimation: Recommendations of the NKF-ASK Task Force on Reassessing the Inclusion of Race in Diagnosing Kidney Disease, JASN 2020). The CKD-EPI equation should not be used for patients with unstable renal function and has not been validated in children and those over 70. Current interpretive data was last reviewed 2021. Blood 05/20/2024 4:03 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 05/20/2024 4:07 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 us Freddy Bell MD LAB BLOOD ORDERABLES Final Result [place] [id number] [facility] Department [place] [address] * (ABNORMAL) Differential, auto (05/20/2024 4:03 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) Neutrophil abs 15.0(H) 1.5 - 6.5 K/cumm Imm gran abs 0.1 0.0 - 0.1 K/cumm [facility] Lymphocyte abs 3.1 0.8 - 3.3 K/cumm [facility] Monocyte abs 1.6(H) 0.2 - 0.8 K/cumm [facility] Eosinophil abs 0.2 0.0 - 0.5 K/cumm [facility] Basophil abs 0.1 0.0 - 0.1 K/cumm [facility] Neutrophil pct 74.9 % [facility] Comment: Interpretive Data Percent cell count reference ranges are not reported, since discordance with absolute values may lead to misinterpretation of CBC data. Current Interpretive Data was last revised on 2017. Imm gran pct 0.5 % [facility] Comment: Interpretive Data Percent cell count reference ranges are not reported, since discordance with absolute values may lead to misinterpretation of CBC data. Current Interpretive Data was last revised on 2017. Lymphocyte pct 15.3 % [facility] Comment: Interpretive Data Percent cell count reference ranges are not reported, since discordance with absolute values may lead to misinterpretation of CBC data. Current Interpretive Data was last revised on 2017. Monocyte pct 7.8 % [facility] Comment: Interpretive Data Percent cell count reference ranges are not reported, since discordance with absolute values may lead to misinterpretation of CBC data. Current Interpretive Data was last revised on 2017. Eosinophil pct 1.1 % [facility] Comment: Interpretive Data Percent cell count reference ranges are not reported, since discordance with absolute values may lead to misinterpretation of CBC data. Current Interpretive Data was last revised on 2017. Basophil pct 0.4 % [facility] Comment: Interpretive Data Percent cell count reference ranges are not reported, since discordance with absolute values may lead to misinterpretation of CBC data. Current Interpretive Data was last revised on 2017. Blood 05/20/2024 4:03 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 05/20/2024 4:07 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 us Freddy Bell MD LAB BLOOD ORDERABLES Final Result [facility] [address] [facility] Department [place] [address] * (ABNORMAL) Urinalysis reflex to microscopic and culture Urine (05/20/2024 4:03 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) Color, ur Yellow Yellow Clarity, ur Cloudy(A) Clear [facility] Specific gravity, ur 1.021 1.003 - 1.030 [facility] pH, urine 6.5 [facility] Comment: Interpretive Data U rine pH is affected by diet, medications, systemic acid-base disturbances, and renal tubular function. pH may affect urinary stone formation. For example, urine pH below 6.0 may help reduce the tendency for calcium phosphate stones and pH greater than 6.0 may reduce the tendency for uric acid stone formation. Source: [facility] Current Interpretive Data was last revised on 2017 Protein, ur ql Negative Negative [facility] Glucose, ur ql Negative Negative [facility] Ketones, ur Negative Negative [facility] Bilirubin, ur Negative Negative [facility] Blood, ur Negative Negative [facility] Urobilinogen, ur <2.0 <2.0 mg/dL [facility] Nitrite, ur Negative Negative [facility] Leukocyte esterase, ur Negative Negative [facility] UA reflex comment Reflex conditions for microscopic UA and culture not met. [facility] Urine 05/20/2024 4:03 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 05/20/2024 4:07 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 Freddy Bell MD LAB MICROBIOLOGY - GENERAL ORDERABLES Final Result Performing Organization Address [facility] Co de Phone Number NEEL [address] [employer] [place] [address] * (ABNORMAL) CBC with auto differential (05/20/2024 4:03 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) WBC 20.1(H) 3.8 - 9.9 K/cumm Hgb 14.2 13.0 - 17.5 g/dL [facility] Hct 43.4 38.9 - 50.3 % [facility] Plt 327 150 - 400 K/cumm [facility] MPV 9.9 9.1 - 12.3 fL [facility] RBC 5.20 4.30 - 5.80 M/cumm [facility] MCV 83.5 81.3 - 96.4 fL [facility] MCH 27.3 27.1 - 33.3 pg [facility] MCHC 32.7 32.3 - 35.7 g/dL [facility] RDW CV 15.9(H) 11.1 - 14.9 % [facility] RDW SD 47.5 35.7 - 48.1 fL [facility] NRBC abs 0.00 0.00 - 0.01 K/cumm [facility] Blood (Blood, Venous) 05/20/2024 4:03 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 05/20/2024 4:07 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 Freddy Bell MD LAB BLOOD ORDERABLES Final Result Performing Organization Address [facility]/ZIP Co de Phone Number NEEL [address] [employer] [place] [address] * Lipase (05/20/2024 4:03 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) Lipase 34 10 - 99 Units/L Blood (Blood, Venous) 05/20/2024 4:03 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 05/20/2024 4:07 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 Freddy Bell MD LAB BLOOD ORDERABLES Final Result [facility] [address] [facility] Department [place] [address] * Comprehensive metabolic panel (05/20/2024 4:03 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) [facility] Sodium 142 135 - 145 mmol/L Potassium, pl 3.6 3.3 - 4.9 mmol/L [facility] Chloride 105 97 - 110 mmol/L [facility] CO2 24 22 - 32 mmol/L [facility] Anion gap 13 2 - 15 mmol/L [facility] BUN 12 6 - 25 mg/dL [facility] Creatinine 1.00 0.80 - 1.30 mg/dL [facility] Glucose 101 70 - 199 mg/dL [facility] Comment: Interpretive Data Fasting glucose >/= 126 mg/dl is diagnostic for diabetes. Fasting is defined as no caloric intake for at least 8 hours. Fasting glucose between 100 mg/dl to 125 mg/dl is diagnostic of prediabetes. In a patient with classic symptoms of hyperglycemia or hyperglycemic crisis, a random glucose >/= 200 mg/dl is diagnostic for diabetes. In the absence of unequivocal hyperglycemia, results should be confirmed by repeat testing. The classification and Diagnosis of Diabetes Diabetes Care 202; 46: S19-S40. Current interpretive data was last revised 2022. Calcium 10.1 8.5 - 10.3 mg/dL [facility] Bilirubin, total 0.3 0.1 - 1.2 mg/dL [facility] Protein, pl 7.3 6.5 - 8.5 g/dL [facility] Albumin 4.5 3.5 - 5.0 g/dL [facility] Alk phos 97 40 - 130 Units/L [facility] ALT 22 7 - 55 Units/L [facility] AST 24 10 - 50 Units/L [facility] Blood 05/20/2024 4:03 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 05/20/2024 4:07 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 us Freddy Bell MD LAB BLOOD ORDERABLES Final Result NEEL SMITH [address] [facility] Department [place] [address] * (ABNORMAL) Urinalysis reflex to microscopic and culture Urine (04/20/2024 4:15 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) Color, ur Yellow Yellow Comment:Testing performed by : [address] [address] Clarity, ur Clear Clear NEEL Comment:Testing performed by : [address] [address] Specific gravity, ur >1.050(A) 1.003 - 1.030 NEEL Comment:Testing performed by : [address] [address] pH, urine 8.5 NEEL Comment: Interpretive Data U rine pH is affected by diet, medications, systemic acid-base disturbances, and renal tubular function. pH may affect urinary stone formation. For example, urine pH below 6.0 may help reduce the tendency for calcium phosphate stones and pH greater than 6.0 may reduce the tendency for uric acid stone formation. Source: [facility] Current Interpretive Data was last revised on 2017 Testing performed by: [address] [address] Protein, ur ql 1+(A) Negative NEEL Comment:Testing performed by : [address] [address] Glucose, ur ql Negative Negative NEEL Comment:Testing performed by : [address] [address] Ketones, ur 2+(A) Negative NEEL Comment:Testing performed by : [address] [address] Bilirubin, ur Negative Negative NEEL Comment:Testing performed by : [address] [address] Blood, ur Negative Negative NEEL Comment:Testing performed by : [address] [address] Urobilinogen, ur <2.0 <2.0 mg/dL NEEL SMITH Comment:Testing performed by : [address] [address] Nitrite, ur Negative Negative NEEL Comment:Testing performed by : [address] [address] Leukocyte esterase, ur Negative Negative NEEL Comment:Testing performed by : [address] [address] UA reflex comment Reflex to microscopic UA will be performed. NEEL Comment:Testing performed by : [address] [address] Urine 04/20/2024 4:15 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 04/20/2024 4:47 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 Blue Warren MD LAB MICROBIOLOGY - GENERAL ORDERABLES Final Result NEEL [address] [facility] Department of Laboratories [place], [place] [id number] * (ABNORMAL) Urinalysis, microscopic only (04/20/2024 4:15 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) WBC, ur 0-5 0 - 5 /HPF Comment:Testing performed by : [address] [address] RBC, ur 3-5(A) 0 - 2 /HPF NEEL Comment:Testing performed by : [address] [address] Culture Reflex Comment Reflex conditions for urine culture (WBC >10) not met. NEEL Comment:Testing performed by : [address] [address] Urine 04/20/2024 4:15 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 04/20/2024 4:47 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 Blue Wraren MD LAB URINE ORDERABLE S Final Result NEEL [address] [facility] Department [place] [address] * CT Abdomen Pelvis W Contrast (04/20/2024 2:02 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) Anatomical Region Laterality Modality Body N/A Computed Tomogra phy 04/20/2024 2:35 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 Narrative 04/20/2024 2:48 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 EXAM DESCRIPTION: CT ABDOMEN PELVIS W CONTRAST REASON FOR STUDY: Abdominal pain, acute, nonlocalized, hx of pancreatitis Nausea/vomiting, Abdominal pain, acute, nonlocalized, hx of pancreatitis TECHNIQUE: CT scan of the abdomen and pelvis performed with intravenous and without oral contrast using helical scanning technique with dynamic intravenous contrast injection. Reconstructed coronal and sagittal MPR images reviewed. All images stored on PACS. Automated exposure control was used as a dose optimization technique for this examination. CONTRAST TYPE/DOSE: 100mL of IOVERSOL 350 MG IODINE/ML INTRAVENOUS SYRINGE injected via intravenous COMPARISON: 01/02/2024 FINDINGS: LOWER CHEST: Visualized lung bases are clear. LIVER: The liver is normal in size. A subcentimeter hypoattenuating lesion is seen within the liver dome which is too small to further characterize. GALLBLADDER: The gallbladder is absent. BILE DUCTS: No gross biliary ductal dilatation . Small amount of pneumobilia seen as evidence for prior sphincterotomy. This is chronic. SPLEEN: The spleen is normal in size. PANCREAS: The pancreas is normal in size. No significant peripancreatic stranding or main ductal dilatation. ADRENALS: Normal. KIDNEYS/URINARY TRACT: The kidneys are normal in size and symmetric in enhancement. No hydronephrosis or significant perinephric stranding. Urinary bladder is partially distended. GI: The colon is nondilated. The appendix is nondilated. The stomach is partially distended. There is narrowing of the gastric outlet which is likely physiologic. The small bowel is nondilated without evidence of a bowel obstruction. PERITONEUM: No free air or ascites is seen. No mesenteric lymphadenopathy is seen. A small fat containing umbilical hernia is noted. RETROPERITONEUM: Subcentimeter retroperitoneal lymph nodes are noted. No inguinal lymphadenopathy is seen REPRODUCTIVE: No significant abnormality. VASCULATURE: No abdominal aortic aneurysm. MUSCULOSKELETAL: No significant abnormality. OTHER: No other abnormality. IMPRESSION: 1. No gross CT finding to explain the patient's symptoms. THIS IS AN ELECTRONICALLY VERIFIED FINAL REPORT 04/20/2024 2:48 PM - Electronically signed by Esa Cao M.D. AG: GONZALES Report ID: [id number] Reading Location: [id number] Procedure Note Esa Cao MD - 04/20/2024 EXAM DESCRIPTION: CT ABDOMEN PELVIS W CONTRAST REASON FOR STUDY: Abdominal pain, acute, nonlocalized, hx ofpancreatitis Nausea/vomiting, Abdominal pain, acute, nonlocalized, hx of pancreatitis TECHNIQUE: CT scan of the abdomen and pelvis performed with intravenousand without oral contrast using helical scanning technique with dynamic intravenous contrast injection. Reconstructed coronal and sagittal MPRimages reviewed. All images stored on PACS. Automated exposure control was usedas a dose optimization technique for this examination. CONTRAST TYPE/DOSE: 100mL of IOVERSOL 350 MG IODINE/ML INTRAVENOUSSYRINGE injected via intravenous COMPARISON: 01/02/2024 FINDINGS: LOWER CHEST: Visualized lung bases are clear. LIVER: The liver is normal in size. A subcentimeter hypoattenuatinglesion is seen within the liver dome which is too small to further characterize. GALLBLADDER: The gallbladder is absent. BILE DUCTS: No gross biliary ductal dilatation . Small amount of pneumobilia seen as evidence for prior sphincterotomy. This is chronic. SPLEEN: The spleen is normal in size. PANCREAS: The pancreas is normal in size. No significant peripancreatic stranding or main ductal dilatation. ADRENALS: Normal. KIDNEYS/URINARY TRACT: The kidneys are normal in size and symmetric in enhancement. No hydronephrosis or significant perinephric stranding.Urinary bladder is partially distended. GI: The colon is nondilated. The appendix is nondilated. The stomachis partially distended. There is narrowing of the gastric outlet which islikely physiologic. The small bowel is nondilated without evidence of a bowel obstruction. PERITONEUM: No free air or ascites is seen. No mesentericlymphadenopathy is seen. A small fat containing umbilical hernia is noted. RETROPERITONEUM: Subcentimeter retroperitoneal lymph nodes are noted.No inguinal lymphadenopathy is seen REPRODUCTIVE: No significant abnormality. VASCULATURE: No abdominal aortic aneurysm. MUSCULOSKELETAL: No significant abnormality. OTHER: No other abnormality. IMPRESSION: 1. No gross CT finding to explain the patient's symptoms. THIS IS AN ELECTRONICALLY VERIFIED FINAL REPORT 04/20/2024 2:48 PM - Electronically signed by Esa Cao M.D. AG: AG Report ID: [id number] Reading Location: [place] [address] PROCEDURES Final Re sult * ECG 12 lead (04/20/2024 12:58 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) Pathologist [facility] Ventricular Rate EKG/Min 62 BPM [facility] Atrial Rate 62 BPM [facility] VT-Interval (MSEC) 84 ms [facility] QRS-Interval (MSEC) 94 ms [facility] QT-Interval (MSEC) 402 ms [facility] QTc 408 ms [facility] P [place] 5 degrees [facility] R [place] 37 degrees [facility] T [place] 41 degrees [facility] Diagnosis Sinus rhythm with short VT Otherwise normal ECG When compared with ECG of 21-FEB-2024 06:26, No significant change was found Confirmed by DARIEL CARLOS M.D. ([id number]) on 04/24/2024 7:39:01 PM [facility] 04/20/2024 12:5 8 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 04/24/2024 7:39 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 Blue Warren MD ECG ORDERABLES Fin al Result [facility] * eGFR (04/20/2024 12:56 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) Pathologist [facility] eGFR >90 >=60 mL/min/1. 73 m2 Comment: Interpretive Data Reference Interval Normal >/= 90 mL/min/1.73m2 Mildly decreased* 60 - 89 mL/min/1.73m2 Mildly to moderately decreased 45 - 59 mL/min/1.73m2 Moderately to severely decreased 30 - 44 mL/min/1.73m2 Severely decreased 15 - 29 mL/min/1.73m2 Kidney Failure < 15 mL/min/1.73m2 *Relative to young adult level Estimated glomerular filtration rate is determined by the 2020 CKD-EPI equation recommended by the National Kidney Foundation (A Unifying Approach to GFR Estimation: Recommendations of the NKF-ASK Task Force on Reassessing the Inclusion of Race in Diagnosing Kidney Disease, JASN 2020). The CKD-EPI equation should not be used for patients with unstable renal function and has not been validated in children and those over 70. Current interpretive data was last reviewed 2021. Testing performed by: [address] [address] Blood 04/20/2024 12:5 6 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 04/20/2024 1:00 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 us Blue Warren MD LAB BLOOD ORDERABLE S Final Result NEEL [address] [facility] Department [place] [address] * (ABNORMAL) Differential, auto (04/20/2024 12:56 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) Neutrophil abs 13.1(H) 1.5 - 6.5 K/cumm Comment:Testing performed by : [address] [address] Imm gran abs 0.1 0.0 - 0.1 K/cumm NEEL Comment:Testing performed by : [address] [address] Lymphocyte abs 1.2 0.8 - 3.3 K/cumm NEEL Comment:Testing performed by : [address] [address] Monocyte abs 1.2(H) 0.2 - 0.8 K/cumm NEEL Comment:Testing performed by : [address] [address] Eosinophil abs 0.1 0.0 - 0.5 K/cumm [facility] Comment:Testing performed by : [address] [address] Basophil abs 0.1 0.0 - 0.1 K/cumm [facility] Comment:Testing performed by : [address] [address] Neutrophil pct 83.8 % [facility] Comment: Interpretive Data Percent cell count reference ranges are not reported, since discordance with absolute values may lead to misinterpretation of CBC data. Current Interpretive Data was last revised on 2017. Testing performed by: [address] [address] Imm gran pct 0.3 % [facility] Comment: Interpretive Data Percent cell count reference ranges are not reported, since discordance with absolute values may lead to misinterpretation of CBC data. Current Interpretive Data was last revised on 2017. Testing performed by: [address] [address] Lymphocyte pct 7.8 % [facility] Comment: Interpretive Data Percent cell count reference ranges are not reported, since discordance with absolute values may lead to misinterpretation of CBC data. Current Interpretive Data was last revised on 2017. Testing performed by: [address] [address] Monocyte pct 7.4 % [facility] Comment: Interpretive Data Percent cell count reference ranges are not reported, since discordance with absolute values may lead to misinterpretation of CBC data. Current Interpretive Data was last revised on 2017. Testing performed by: [address] [address] Eosinophil pct 0.4 % [facility] Comment: Interpretive Data Percent cell count reference ranges are not reported, since discordance with absolute values may lead to misinterpretation of CBC data. Current Interpretive Data was last revised on 2017. Testing performed by: [address] [address] Basophil pct 0.3 % [facility] Comment: Interpretive Data Percent cell count reference ranges are not reported, since discordance with absolute values may lead to misinterpretation of CBC data. Current Interpretive Data was last revised on 2017. Testing performed by: [address] [address] Blood 04/20/2024 12:5 6 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 04/20/2024 1:00 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 us Blue Warren MD LAB BLOOD ORDERABLE S Final Result NEEL [address] [facility] Department [place] [address] * (ABNORMAL) CBC with auto differential (04/20/2024 12:56 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) WBC 15.7(H) 3.8 - 9.9 K/cumm Comment:Testing performed by : [address] [address] Hgb 13.8 13.0 - 17.5 g/dL NEEL Comment:Testing performed by : [address] [address] Hct 41.6 38.9 - 50.3 % NEEL Comment:Testing performed by : [address] [address] Plt 337 150 - 400 K/cumm NEEL Comment:Testing performed by : [address] [address] MPV 9.6 9.1 - 12.3 fL NEEL Comment:Testing performed by : [address] [address] RBC 5.09 4.30 - 5.80 M/cumm NEEL Comment:Testing performed by : [address] [address] MCV 81.7 81.3 - 96.4 fL NEEL Comment:Testing performed by : [address] [address] MCH 27.1 27.1 - 33.3 pg NEEL SMITH Comment:Testing performed by : [address] [address] MCHC 33.2 32.3 - 35.7 g/dL NEEL SMITH Comment:Testing performed by : [address] [address] RDW CV 15.9(H) 11.1 - 14.9 % NEEL SMITH Comment:Testing performed by : [address] [address] RDW SD 47.5 35.7 - 48.1 fL NEEL SMITH Comment:Testing performed by : [address] [address] NRBC abs 0.00 0.00 - 0.01 K/cumm NEEL Comment:Testing performed by : [address], [address] Blood (Blood, Venous) 04/20/2024 12:56 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 04/20/2024 1:00 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 Blue Warren MD LAB BLOOD ORDERABLE S Final Result Performing Organization Address [facility] Co de Phone Number [address] [employer] [place] [address] * Lipase (04/20/2024 12:56 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) Pathologist [facility] Lipase 23 10 - 99 Units/L Comment:Testing performed by : [address], [address] Blood (Blood, Venous) 04/20/2024 12:56 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 04/20/2024 1:00 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 Blue Warren MD LAB BLOOD ORDERABLE S Final Result Performing Organization Address [facility] de Phone Number [address] [place] [address] * Comprehensive metabolic panel (04/20/2024 12:56 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) Sodium 142 135 - 145 mmol/L Comment:Testing performed by : [address] [address] Potassium, pl 4.2 3.3 - 4.9 mmol/L [facility] Comment:Testing performed by : [address], [place]., [address] Chloride 105 97 - 110 mmol/L NEEL Comment:Testing performed by : [address], [place]., [address] CO2 24 22 - 32 mmol/L [facility] Comment:Testing performed by : [address] [address] Anion gap 13 2 - 15 mmol/L [facility] Comment:Testing performed by : [address], [place]., [address] BUN 8 6 - 25 mg/dL [facility] Comment:Testing performed by : [address], [place]., [address] Creatinine 1.00 0.80 - 1.30 mg/dL [facility] Comment:Testing performed by : [address] [address] Glucose 145 70 - 199 mg/dL [facility] Comment: Interpretive Data Fasting glucose >/= 126 mg/dl is diagnostic for diabetes. Fasting is defined as no caloric intake for at least 8 hours. Fasting glucose between 100 mg/dl to 125 mg/dl is diagnostic of prediabetes. In a patient with classic symptoms of hyperglycemia or hyperglycemic crisis, a random glucose >/= 200 mg/dl is diagnostic for diabetes. In the absence of unequivocal hyperglycemia, results should be confirmed by repeat testing. The classification and Diagnosis of Diabetes Diabetes Care 202; 46: S19-S40. Current interpretive data was last revised 2022. Testing performed by: [address] [address] Calcium 10.1 8.5 - 10.3 mg/dL [facility] Comment:Testing performed by : [address] [address] Bilirubin, total 0.5 0.1 - 1.2 mg/dL [facility] Comment:Testing performed by : [address] [address] Protein, pl 7.4 6.5 - 8.5 g/dL NEEL Comment:Testing performed by : [address] [address] Albumin 4.6 3.5 - 5.0 g/dL NEEL Comment:Testing performed by : [address] [address] Alk phos 106 40 - 130 Units/L NEEL Comment:Testing performed by : [address] [address] ALT 15 7 - 55 Units/L NEEL Comment:Testing performed by : [address] [address] AST 17 10 - 50 Units/L NEEL Comment:Testing performed by : [address] [address] Blood 04/20/2024 12:5 6 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 04/20/2024 1:00 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 Blue Warren MD LAB BLOOD ORDERABLE S Final Result NEEL [address] [facility] Department of Laboratories [place], [place] [id number] * XR Spine Cervical 2 or 3 Views (03/25/2024 11:32 AM HUMANITIES AND LANGUAGES PROFESSOR) Anatomical Region Laterality Modality Spine N/A Computed Radiogr aphy 03/29/2024 11:2 1 AM HUMANITIES AND LANGUAGES PROFESSOR Narrative 03/29/2024 11:24 AM HUMANITIES AND LANGUAGES PROFESSOR EXAM DESCRIPTION: XR SPINE CERVICAL 2 OR 3 VIEWS REASON FOR STUDY: neck pain, 43 yo M with neck pain. please evaluate Pain x 2 months FINDINGS: Two views submitted without comparison. No acute fractures are identified. There is no prevertebral soft tissue swelling. There is mild anterolisthesis of C4 on C5 and C6 on C7. There is mild C5-C6 degenerative disc disease. IMPRESSION: Mild C5-C6 degenerative disc disease. Mild anterolisthesis of C4 on C5 and C6 on C7. THIS IS AN ELECTRONICALLY VERIFIED FINAL REPORT 03/29/2024 11:24 AM - Electronically signed by Calvin Linn M.D. MF: MK Report ID: [id number] Reading Location: [id number] Procedure Note Calvin iLnn MD - 03/29/2024 EXAM DESCRIPTION: XR SPINE CERVICAL 2 OR 3 VIEWS REASON FOR STUDY: neck pain, 43 yo M with neck pain. please evaluate Pain x 2 months FINDINGS: Two views submitted without comparison. No acute fractures are identified. There is no prevertebral soft tissue swelling. There is mild anterolisthesis of C4 on C5 and C6 on C7. Thereis mild C5-C6 degenerative disc disease. IMPRESSION: Mild C5-C6 degenerative disc disease. Mild anterolisthesis of C4 on C5 and C6 on C7. THIS IS AN ELECTRONICALLY VERIFIED FINAL REPORT 03/29/2024 11:24 AM - Electronically signed by Calvin Linn M.D. MF: MK Report ID: [id number] Reading Location: [id number] Td Lopez MD IMG XR PROCEDURES Final Result from Last 3 Months Insurance [facility] Advance Directives For more information, please contact: [phone] * Full Code (Latest Code Status on File) Date Activated Date Inactivated Comments 11/15/2023 12:50 PM 11/16/2023 7:54 PM * Full Code Date Activated Date Inactivated Comments 09/20/2023 10:48 PM 09/24/2023 4:31 PM * Full Code Date Activated Date Inactivated Comments 06/30/2022 8:00 AM 06/30/2022 5:06 PM * Full Code Date Activated Date Inactivated Comments 03/01/2022 6:55 PM 03/01/2022 11:33 PM * Full Code Date Activated Date Inactivated Comments 02/07/2022 11:23 AM 02/10/2022 10:36 PM Care Teams Research And Development Manager Relationship Specialty Start Date End Date Td Lopez MD [address] [facility] [address] [place] [address] PCP - General Family Medicine 11/09/20 Angie Woodard MD [address] [facility] [address] [place] [address] Consulting Physician Gastroenterology 07/17/21 Vimal Woodruff MD [address] [facility] [address] [place] [address] Consulting Physician Gastroenterology 02/10/22
--- OUTSIDE RECORDS SUMMARY | 2024-06-21 17:37 | XMS_ITS | Clinical Summary ---
Author Organization [facility] Address [facility] [place] [address] Care Team Providers Care Grounds Caretaker Name Role Phone Td Lopez MD Primary Care Provider [phone] Allergies Active Allergy Reactions Criticality Noted Date Comments Capsaicin Other (see comment) Low 05/20/2019 Pt states it gets into his scars and causes a lot of pain Doxycycline GI Upset Low 03/29/2017 Haloperidol Other (see comment) 01/29/2022 Musculoskeletal pain Metoclopramide Myalgias 03/29/2017 Sulfa Antibiotics Myalgias,Other (see comment) Medium 03/29/2017 Reaction: neurological symptoms per patient Medications CREON [id number] units CAPSULE ENTERIC COATED PARTICLES Take 36,000 units of lipase by mouth 3 (three) times daily with meals. 3 Active amLODIPine (NORVASC) 5 MG tablet Take 1 tablet (5 mg total) by mouth daily. 30 tablet 3 Active apixaban (ELIQUIS) 5 MG tabletIndications: Deep Vein Thrombosis Take 1 tablet (5 mg total) by mouth 2 (two) times daily. Indications: Blood Clot in a Deep Vein 60 tablet 3 Active oxyCODONE-acetamin ophen (PERCOCET) 5-325 MG tabletIndications: Acute Pain < 3 Day Supply Take 1 tablet by mouth every 4 (four) hours as needed. Indications: Acute Pain < 3 Day Supply 18 tablet 3 Active dicyclomine (BENTYL) 20 MG tablet Take 1 tablet (20 mg total) by mouth every 6 (six) hours as needed (abd pain). 30 tablet 3 Active promethazine (PHENERGAN) 25 MG tablet Take 1 tablet (25 mg total) by mouth every 6 (six) hours as needed for Nausea. 15 tablet 4 Active famotidine (PEPCID) 40 MG tablet daily. Active hyoscyamine (LEVSIN/SL) 0.125 MG SL tablet DISSOLVE 1 TABLET UNDER THE TONGUE 4 TIMES DAILY NEEDED FOR ABDOMINAL DISCOMFORT 4 Active ondansetron (ZOFRAN-ODT) 4 MG disintegrating tablet Take 1 tablet (4 mg total) by mouth every 8 (eight) hours as needed for Nausea. 20 tablet 4 Active Active Problems Problem Noted Date Diagnosed Date Intractable pain 10/18/2022 Abdominal pain 10/18/2022 Acute pancreatitis ([facility]) 09/28/2022 Renal infarct ([facility]) 09/08/2022 Marijuana use 09/04/2022 Normocytic normochromic anemia 09/04/2022 Sphincter of Oddi dysfunction 09/04/2022 Tobacco use disorder, continuous 09/04/2022 Pancreatitis ([facility]) 09/02/2022 GI bleed 06/28/2022 Folliculitis 01/08/2022 Overview (09/04/2022): Last Assessment & Plan: - chronic, uncontrolled - start clindamycin gel daily x 7 days - ref to derm for eval. Manipulative behavior 07/14/2021 COVID-19 vaccine series completed 06/27/2021 Overview (09/04/2022): Moderna x2 Drug-seeking behavior 06/27/2021 History of 2019 novel coronavirus disease (COVID -19) 06/27/2021 Drug abuse and dependence ([facility]) 09/2020 Overview (09/04/2022): Last Assessment & Plan: - using mariajuana occasionally; has had frequent rx for opioids in ER - pt claims at least several days since last ER visit with narcotics given - record review suggests at least 2 wks - will check UDS Acute recurrent pancreatitis ([facility]) Other chronic pancreatitis ([facility]) Overview (09/04/2022): Last Assessment & Plan: - stable today - continue current medications - f/u with Dr Rosas as planned - encouraged pt to come to clinic instead of going to ER next time he has abdominal pain 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 - Pt has had several colonoscopies in the past with the last one in Apr [address] rosas - Pt smoking marijuana for his abdominal pain - pt smokes 1ppd x 20 yrs, some interest in quitting - not exercising. Last Assessment & Plan: - labs reviewed - not due for c-scope - focus on treatment of IBS, exercise when able Colitis 02/18/2019 Cannabis use with cannabis-i nduced disorder ([facility]) 10/18/2018 Mild malnutrition ([facility]) 10/18/2018 Neutrophilic leukocytosis 10/18/2018 Tobacco use disorder 10/18/2018 Other chronic pancreatitis ([facility]) 02/2019 Overview (02/18/2019): Overview: Added automatically from request for surgery [id number] Chronic abdominal pain 03/30/2017 Assessment & Plan (03/30/2017 12:03 PM TAXICAB DRIVER): Acute on chronic, stable Patient with possible hx of pancreatitis and abdominal pain CT abdomen unremarkable on admission Lipase WNL on admission Mutliple negative GI workups in past with Dr. Rosas CT abdomen (03/29) unremarkable - Continue home medications including sucralfate QID, zofran PRN, and compazine PRN - Pain control with tylenol for mild pain, norco for moderate pain when tolerating PO-May repeat dose of Toradol - Continue to advance diet as tolerated Sepsis ([facility]) 03/30/2017 Assessment & Plan (03/30/2017 12:03 PM TAXICAB DRIVER): Present on admission, resolved Lactic acid 2.8 on admission trended down to 1.9, tachycardic, leukocytosis of 21.3 Likely source is influenza A infection CXR unremarkable, CT abdomen unremarkable s/p one dose of levaquin and flagyl in ED Antibiotics discontinued - WBC improving - Continue supportive treatment with IVF- Transition to 1x maintenance - Continue to monitor vitals and pulse ox q4h - Follow with CBC Depression 03/30/2017 Assessment & Plan (03/30/2017 12:25 AM TAXICAB DRIVER): - established, controlled - continue home fluoxetine, nortriptyline GERD (gastroesophageal reflux disease) 7 Assessment & Plan (03/30/2017 12:25 AM TAXICAB DRIVER): - established, controlled - continue home nexium Hypertension 03/30/2017 Overview (03/30/2017): - established, controlled - continue home metoprolol Assessment & Plan (03/30/2017 1:01 AM TAXICAB DRIVER): - established, controlled - continue home metoprolol Influenza 03/30/2017 Depression 03/30/2017 Overview (02/18/2019): Overview: Last Assessment & Plan: - established, controlled - continue home fluoxetine, nortriptyline Flu 03/29/2017 Assessment & Plan (03/30/2017 12:03 PM TAXICAB DRIVER): Acute, influenza A + on admission, asymptomatic Tamilfu given in ED Likely source of lactic acidosis and leukocytosis - Lactic acid: 2.8 --> 1.9 - WBC: Improved to 12.3 on 03/30 - Continue to monitor vitals and pulse ox q4h - Continue supportive care with IVF- Transition to 1x maintenance - Follow with CBC's - Will continue with Tamiflu x5 days Cyclic vomiting syndrome 02/14/2015 Overview (02/18/2019): Overview: Last Assessment & Plan: - established, controlled - continue home nexium Resolved Problems Problem Noted Date Diagnosed Date Resolved Date Frequent patient in emergency department 06/27/2021 09/08/2022 Encounters Date Type Department Care Team Description 04/26/2024 7:22 PM TAXICAB DRIVER - 04/27/2024 12:35 AM [facility] Emergency [facility] [address] [place] [address] Temo Soriano MD Abdominal Pain; Vomiting Discharge Disposition: Home or Self Care (Routine Discharge) 04/26/2024 Travel from Last 3 Months Family History Medical History Relation Comments No Known Problems Father No Known Problems Mother Relation Status Comments Father Mother Social History Tobacco Use Types Packs/Day Years Used Date Smoking Tobacco: Every Day Cigarettes 1 10 Smokeless Tobacco: Never Alcohol Use Standard Drinks/Week Comments No 0 (1 standard drink = 0.6 oz pur e alcohol) Humiliation, Afraid, Rape, and Kick questionnair e Answer Date Recorded Within the last year, have y ou been afraid of your partner or ex-partner? No 10/18/2022 Within the last year, have y ou been humiliated or emotionally abused in other ways by your partner or ex-partner? No Within the last year, have y ou been kicked, hit, slapped, or otherwise physically hurt by your partner or ex-partner? No 10/18/2022 Within the last year, have y ou been raped or forced to have any kind of sexual activity by your partner or ex-partner? No 10/18/2022 Social Connection and Isolation Panel [NHANES] A nswer Date Recorded In a typical week, how many times do you talk on the phone with family, friends, or neighbors? Once a week 09/28/2022 How often do you get together with friends or re latives? Once a week 09/28/2022 How often do you attend jewish or confucianism serv ices? Never 09/28/2022 Do you belong to any clubs o r organizations such as jewish groups, unions, fraternal or athletic groups, or school groups? No 09/28/2022 How often do you attend meet ings of the clubs or organizations you belong to? Never 09/28/2022 Are you , , di vorced, , never , or living with a partner? Never 09/28/2022 AUDIT-C Answer Date Recorded Q1: How often do you have a drink containing alcohol? Never 09/28/2022 Q2: How many drinks containi ng alcohol do you have on a typical day when you are drinking? Patient does not drink Q3: How often do you have si x or more drinks on one occasion? Never 09/28/2022 Overall Financial Resource Strain (CARDIA) Answe r Date Recorded How hard is it for you to pa y for the very basics like food, housing, medical care, and heating? Not hard at all 10/18/2022 [facility] - Occupational Stress Questionnaire Answer Date Recorded Do you feel stress - tense, restless, nervous, or anxious, or unable to sleep at night because your mind is troubled all the time - these days? Not at all 09/28/2022 Exercise Vital Sign Answer Date Recorde d On average, how many days pe r week do you engage in moderate to strenuous exercise (like a brisk walk)? 3 days 09/28/2022 On average, how many minutes do you engage in exercise at this level? 10 min 09/28/2022 Hunger Vital Sign Answer Date Recorded Within the past 12 months, y ou worried that your food would run out before you got the money to buy more. Never true 10/19/19 23 Within the past 12 months, t he food you bought just didn't last and you didn't have money to get more. Never true 10/18/2022 PRAPARE - Transportation Answer Date Re corded In the past 12 months, has l ack of transportation kept you from medical appointments or from getting medications? No 10/09 In the past 12 months, has l ack of transportation kept you from meetings, work, or from getting things needed for daily living? No 10/18/2022 Housing Stability Vital Sign Answer Milton e Recorded In the last 12 months, was t here a time when you were not able to pay the mortgage or rent on time? No 10/18/2022 In the last 12 months, how many places have you lived? 1 10/18/2022 In the last 12 months, was t here a time when you did not have a steady place to sleep or slept in a penitentiary (including now)? No 10/18/2022 Sex and Gender Information Value Date Recorded Sex Assigned at Not on file Legal Sex Male 8:10 AM CDT Gender Identity Not on file Sexual Orientation Not on file Last Filed Vital Signs Vital Sign Reading Time Taken Comments Blood Pressure 137/82 04/26/2024 9:43 PM TAXICAB DRIVER Pulse 67 04/26/2024 9:43 PM TAXICAB DRIVER Temperature 36.6 C (97.9 F) 04/26/2024 7:30 PM TAXICAB DRIVER Respiratory Rate 18 04/26/2024 9:43 PM TAXICAB DRIVER Oxygen Saturation 97% 04/26/2024 9:43 PM TAXICAB DRIVER Inhaled Oxygen Concentration - - Weight 72.6 kg (160 lb) 04/26/2024 7:30 PM TAXICAB DRIVER Height 177.8 cm (5' 10 ) 04/26/2024 7:30 PM TAXICAB DRIVER Body Mass Index 22.96 04/26/2024 7:30 PM TAXICAB DRIVER Plan of Treatment Health Maintenance Due Date Last Done Comments Annual Physical 1984 Pneumococcal Vaccine: Pediatrics (0 to 5 Years) and At-Risk Patients (6 to 64 Years) (1 of 2 - PCV) 1987 Hepatitis B Vaccines (1 of 3 - 19+ 3-dose series) 2000 COVID-19 Vaccine ( season) 2024 10/29/2021, 11/02/2020, 10/05/2020 DTaP, Tdap and Td Vaccines (2 - Td or Tdap) 10/30/2031 10/29/2021 Hepatitis C Completed 03/27/2018 Influenza Adult Completed 03/25/2024, 03/11, 02/08/2022, Additional history exists HPV Vaccines Aged Out No longer eligi ble based on patient's age to complete this topic Meningococcal B Vaccine Aged Out No l onger eligible based on patient's age to complete this topic Meningococcal Vaccine Aged Out No erasmo karthik eligible based on patient's age to complete this topic RSV Immunizations Under 20 Months Aged Out No longer eligible based on patient's age to complete this topic Goals Goal Patient Goal Type Associated Problems Recent Progress Patient-Stated? Author Patient will return to prior living situation and remain independent in ADLs upon discharge from hospital Lifestyle No Sintia Zhao, ruffler Procedure Name Priority Date/Time Associated Diagnosis Comments BASIC METABOLIC PANEL STAT 04/26/2024 11:[address] ABD+PEL W CON STAT 04/26/2024 9:37 PM TAXICAB DRIVER DRUG SCREEN RAPID STAT 04/26/2024 8:3 0 PM TAXICAB DRIVER URINALYSIS, AUTO, COMPLETE STAT 04/26/2024 8:30 PM TAXICAB DRIVER LIPASE STAT 04/26/2024 7:44 PM TAXICAB DRIVER TROPONIN, QUANT STAT 04/26/2024 7:44 PM TAXICAB DRIVER COMPREHENSIVE METABOLIC PANEL STAT 04/26/2024 7:44 PM TAXICAB DRIVER CBC W/DIFF AUTOMATED STAT 04/26/2024 7:44 PM TAXICAB DRIVER from Last 3 Months Results * (ABNORMAL) BASIC METABOLIC PANEL (04/26/2024 11:52 PM TAXICAB DRIVER) GLUCOSE 86 70 - 99 MG/DL 04/27/2024 12:07 AM [facility] BUN 7 7 - 18 MG/DL 04/27/2024 12:07 AM [facility] CREATININE S/P/B 1.06 0.7 - 1.3 MG/DL 04/27/2024 12:07 AM [facility] SODIUM S/P/B 144 136 - 145 MMOL/L 04/27/2024 12:07 AM [facility] POTASSIUM S/P/B 4.7 3.5 - 5.1 MMOL/L 04/27/2024 12:07 AM [facility] CHLORIDE S/P/B 108 100 - 108 MMOL/L 04/27/2024 12:07 AM [facility] CO2 26.9 21 - 32 MMOL/L 04/27/2024 12:07 AM [facility] CALCIUM S/P/B 9.0 8.5 - 10.1 MG/DL 04/27/2024 12:07 AM [facility] ANION GAP 9.1 5 - 15 MMOL/L 04/27/2024 12:07 AM [facility] BUN CREATININE RATIO 6.6 6 - 26 04/27/2024 12:07 AM [facility] GFR ESTIMATE 90(L) >90 ML/MIN/1.7 3 M2 04/27/2024 12:07 AM [facility] Comment: NOTE: eGFR is not calculated for patients <18 years of age. This is an estimated GFR calculation using the new CKD EPI creatinine equation without race and so does not require a correction factor for race. This estimated GFR should not be used for calculating drug doses. 04/26/2024 11:5 2 PM TAXICAB DRIVER us Temo Soriano MD LABORATORY Final Resu lt [facility] [address] [place] [address], * CT ABD+PEL W IV CON ONLY (04/26/2024 9:37 PM TAXICAB DRIVER) Anatomical Region Laterality Modality Abdomen Computed Tomogra phy 04/26/2024 10:0 3 PM TAXICAB DRIVER Impressions 04/26/2024 10:06 PM TAXICAB DRIVER IMPRESSION: No CT evidence of acute abdominopelvic pathology. PQRS ABDOMINAL: [id number] Referred By: Interpreted By: Vick Suresh, 04/26/2024 10:03 PM Narrative 04/26/2024 10:06 PM TAXICAB DRIVER [facility] [address] [address] [place] [address] HISTORY: Abdominal pain COMPARISON: 01/03/2024 TECHNIQUE: CT abdomen and pelvis performed utilizing thin-slice axial technique following IV administration of contrast. A dose-lowering technique was used for this procedure, which may include, but is not limited to, dose-reduction technique, automated exposure control, the use of iterative reconstruction, and ALARA (As Low As Reasonably Achievable) / Image Gently techniques. FINDINGS: Gallbladder surgically absent. There is mild pneumobilia, most likely related to past biliary intervention. Biliary tracts and liver otherwise unremarkable. Spleen, kidneys, adrenal glands, pancreas, bladder, and prostate show no significant pathology. GI tract shows no obstruction or other acute or significant pathology. Appendix is normal. No abdominal or pelvic lymph adenopathy. Major vascular structures of normal course and caliber. No free fluid or free air. Abdominal wall and inguinal regions unremarkable. Included lung bases clear. Visualized bones unremarkable. Procedure Note Vick Suresh MD - 04/26/2024 [facility] [address] [place] [address] HISTORY: Abdominal pain COMPARISON: 01/03/2024 TECHNIQUE: CT abdomen and pelvis performed utilizing thin-slice axialtechnique following IV administration of contrast. A dose-loweringtechnique was used for this procedure, which may include, but is notlimited to, dose-reduction technique, automated exposure control, the useof iterative reconstruction, and ALARA (As Low As Reasonably Achievable) /Image Gently techniques. FINDINGS: Gallbladder surgically absent. There is mild pneumobilia, most likelyrelated to past biliary intervention. Biliary tracts and liver otherwiseunremarkable. Spleen, kidneys, adrenal glands, pancreas, bladder, andprostate show no significant pathology. GI tract shows no obstruction or other acute or significant pathology.Appendix is normal. No abdominal or pelvic lymph adenopathy. Major vascular structures ofnormal course and caliber. No free fluid or free air. Abdominal wall andinguinal regions unremarkable. Included lung bases clear. Visualized bones unremarkable. IMPRESSION: No CT evidence of acute abdominopelvic pathology. PQRS ABDOMINAL: [id number] Referred By: Interpreted By: Vick Suresh, 04/26/2024 10:03 PM Temo Soriano MD CT Final Resu lt * (ABNORMAL) DRUG SCREEN RAPID (04/26/2024 8:30 PM TAXICAB DRIVER) Pathologist [facility] [place] AMPHETAMINE (U) NONE DETECTED NONE DETECTED 04/26/2024 8:45 PM TAXICAB DRIVER [facility] BARBITURATES SCREEN (U) DETECTED(A) NONE DETECTED 04/26/2024 8:45 PM [facility] BENZODIAZEPINES SCREEN (U) DETECTED(A) NONE DETECTED 04/26/2024 8:45 PM TAXICAB DRIVER [facility] BUPRENORPHINE SCREEN (U) NONE DETECTED NONE DETECTED 04/26/2024 8:45 PM [facility] COCAINE METABOLITES (U) NONE DETECTED NONE DETECTED 04/26/2024 8:45 PM TAXICAB DRIVER [facility] METHAMPHETAMINE (U) NONE DETECTED NONE DETECTED 04/26/2024 8:45 PM [facility] METHADONE (U) NONE DETECTED NONE DETECTED 04/26/2024 8:45 PM [facility] OPIATE SCREEN (U) DETECTED(A) NONE DETECTED 04/26/2024 8:45 PM TAXICAB DRIVER [facility] OXYCODONE SCREEN (U) NONE DETECTED NONE DETECTED 04/26/2024 8:45 PM TAXICAB DRIVER [facility] PHENCYCLIDINE PCP (U) NONE DETECTED NONE DETECTED 04/26/2024 8:45 PM TAXICAB DRIVER [facility] CANNABINOIDS SCREEN (U) DETECTED(A) NONE DETECTED 04/26/2024 8:45 PM TAXICAB DRIVER [facility] TRICYCLIC ANTIDEPRESSANT SCREEN (U) NONE DETECTED NONE DETECTED 04/26/2024 8:45 PM TAXICAB DRIVER [facility] Comment: NOTE: RESULTS OF THIS DRUG SCREEN SHOULD BE USED FOR MEDICAL PURPOSES ONLY AND NOT FOR LEGAL OR EMPLOYEMENT PURPOSES. MEDICATIONS CONTAINING EPHEDRINE MAY CAUSE FALSE POSITIVE AMPHETAMINE. AMPHETAMINE- 500 NG/ML BARBITURATE- 200 NG/ML BENZODIAZEPINE- 150 NG/ML BUPRENORPHINE- 10 NG/ML COCAINE- 150 NG/ML METHAMPHETAMINES- 500 NG/ML METHADONE- 200 NG/ML OPIATE- 100 NG/ML OXYCODONE- 100 NG/ML PCP- 25 NG/ML THC- 50 NG/ML TCA- 300 NG/ML URINE SPECIMEN / Unknown 04/26/2024 8:30 PM TAXICAB DRIVER us Temo Soriano MD URINE ORDERABLES Final Res ult [facility] [address] [place] [address], * (ABNORMAL) URINALYSIS, AUTO, COMPLETE (04/26/2024 8:30 PM TAXICAB DRIVER) COLOR (U) YELLOW 04/26/2024 8:47 PM [facility] TRANSPARENCY CLEAR 04/26/2024 8:47 PM [facility] SPECIFIC GRAVITY (U) 1.010 1.000 - 1.030 04/26/2024 8:47 PM [facility] U PH 8.0 5.0 - 9.0 04/26/2024 8:47 PM [facility] LEUKOCYTES (U) NEGATIVE NEGATIVE 04/26/2024 8:47 PM [facility] NITRITES NEGATIVE NEGATIVE 04/26/2024 8:47 PM [facility] PROTEIN RANDOM (U) NEGATIVE NEGATIVE 04/26/2024 8:47 PM [facility] GLUCOSE (U) NEGATIVE NEGATIVE 04/26/2024 8:47 PM TAXICAB DRIVER [facility] KETONES MG/DL (U) 1+(A) NEGATIVE 04/26/2024 8:47 PM [facility] BILIRUBIN (U) NEGATIVE NEGATIVE 04/26/2024 8:47 PM [facility] BLOOD (U) NEGATIVE NEGATIVE 04/26/2024 8:47 PM TAXICAB DRIVER [facility] WBC/HPF 0-5 0 - 5 /HPF 04/26/2024 8:47 PM [facility] RBC/HPF 0-5 0 - 5 /HPF 04/26/2024 8:47 PM [facility] EPI/HPF FEW /HPF 04/26/2024 8:47 PM [facility] BACTERIA (U) RARE /HPF 04/26/2024 8:47 PM [facility] URINE SPECIMEN OBTAINED BY CLEAN CATCH PROCEDURE / Unknown 04/26/2024 8:30 PM TAXICAB DRIVER us Temo Soriano MD URINE ORDERABLES Final Res ult [facility] [address] [place] [address], [place] [phone] * (ABNORMAL) COMPREHENSIVE METABOLIC PANEL (04/26/2024 7:44 PM TAXICAB DRIVER) GLUCOSE 83 70 - 99 MG/DL 04/26/2024 8:13 PM [facility] BUN 5(L) 7 - 18 MG/DL 04/26/2024 8:13 PM [facility] CREATININE S/P/B 0.69(L) 0.7 - 1.3 MG/DL 04/26/2024 8:13 PM [facility] SODIUM S/P/B 148(H) 136 - 145 MMOL/L 04/26/2024 8:13 PM [facility] POTASSIUM S/P/B 2.9(LL) 3.5 - 5.1 MMOL/L 04/26/2024 8:13 PM [facility] Comment: ALERT VALUE CALLED TO AND READ BACK BY: MERARY PRAKASH GAS TRANSFER OPERATOR 12 ALERT VALUE CALLED TO AND READ BACK BY: MERARY PRAKASH GAS TRANSFER OPERATOR 2011/DVO CHLORIDE S/P/B 115(H) 100 - 108 MMOL/L 04/26/2024 8:13 PM [facility] CO2 20.4(L) 21 - 32 MMOL/L 04/26/2024 8:13 PM [facility] CALCIUM S/P/B 7.0(L) 8.5 - 10.1 MG/DL 04/26/2024 8:13 PM [facility] BILIRUBIN TOTAL S/P/B 0.4 0.2 - 1.2 MG/DL 04/26/2024 8:13 PM [facility] TOTAL PROTEIN S/P/B 5.3(L) 6.4 - 8.2 G/DL 04/26/2024 8:13 PM [facility] ALBUMIN S/P/B 3.0(L) 3.4 - 5.0 G/DL 04/26/2024 8:13 PM [facility] AST 22 15 - 37 U/L 04/26/2024 8:13 PM [facility] ALT 19 16 - 60 U/L 04/26/2024 8:13 PM [facility] ALKALINE PHOSPHATASE S/P/B 72 50 - 136 U/L 04/26/2024 8:13 PM [facility] ANION GAP 12.6 5 - 15 MMOL/L 04/26/2024 8:13 PM [facility] BUN CREATININE RATIO 7.2 6 - 26 04/26/2024 8:13 PM [facility] A/G RATIO 1.3 1.0 - 2.0 RATIO 04/26/2024 8:13 PM [facility] GFR ESTIMATE >90 >90 ML/MIN/1.7 3 M2 04/26/2024 8:13 PM [facility] Comment: NOTE: eGFR is not calculated for patients <18 years of age or gender unknown. This is an estimated GFR calculation using the new CKD EPI creatinine equation without race and so does not require a correction factor for race. This estimated GFR should not be used for calculating drug doses. 04/26/2024 7:44 PM TAXICAB DRIVER us Temo Soriano MD LABORATORY Final Resu lt [facility] [address] [place] [address], [place] [phone] * (ABNORMAL) CBC W/DIFF AUTOMATED (04/26/2024 7:44 PM TAXICAB DRIVER) WBC 15.37(H) 4.4 - 11.0 x10'3/uL 04/26/2024 7:53 PM [facility] RBC 5.08 4.50 - 5.90 x10'6/uL 04/26/2024 7:53 PM [facility] HGB 13.7(L) 14.0 - 17.5 G/DL 04/26/2024 7:53 PM [facility] LAB HCT 42.5 41.5 - 50.4 % 04/26/2024 7:53 PM [facility] MCV 83.7 80.0 - 96.0 FL 04/26/2024 7:53 PM [facility] MCH 27.0 26.5 - 31.4 PG 04/26/2024 7:53 PM [facility] MCHC 32.2 31.9 - 34.8 G/DL 04/26/2024 7:53 PM [facility] RDW 16.0(H) 12.3 - 14.3 % 04/26/2024 7:53 PM [facility] PLT 324 151 - 353 x10'3/uL 04/26/2024 7:53 PM [facility] MPV 9.9 9.7 - 11.9 FL 04/26/2024 7:53 PM [facility] RBC MORPHOLOGY NORMAL 04/26/2024 7:53 PM [facility] PLT MORPH. NORMAL 04/26/2024 7:53 PM [facility] WBC MORPHOLOGY NORMAL 04/26/2024 7:53 PM [facility] LYMPHOCYTES % 8.4(L) 15.8 - 45.0 % 04/26/2024 7:53 PM [facility] NEUTROPHILS % 82.9(H) 42.1 - 71.9 % 04/26/2024 7:53 PM [facility] MONOCYTES % 7.8 5.7 - 12.5 % 04/26/2024 7:53 PM [facility] EOSINOPHILS 0.1 0.0 - 5.6 % 04/26/2024 7:53 PM [facility] BASOPHILS 0.3 0.0 - 1.3 % 04/26/2024 7:53 PM [facility] ABS. NEUTROPHILS 12.76(H) 1.40 - 6.00 x10'3/uL 04/26/2024 7:53 PM [facility] IMMATURE GRANS % 0.5 0.0 - 0.5 % 04/26/2024 7:53 PM [facility] ABS. LYMPHOCYTES 1.29 0.80 - 4.70 x10'3/uL 04/26/2024 7:53 PM TAXICAB DRIVER [facility] 04/26/2024 7:44 PM TAXICAB DRIVER us Temo Soriano MD LABORATORY Final Resu lt Performing Organization Address City/[facility]/ZIP Co de Phone Number [facility] [address] [place] [address], [place] [phone] * TROPONIN, QUANT (04/26/2024 7:44 PM TAXICAB DRIVER) Pathologist [facility] [place] TROPONIN I HIGH SENSITIVITY 7 0 - 75 ng/L 04/26/2024 8:09 PM TAXICAB DRIVER [facility] Comment: HIGH DOSES OF BIOTIN, TROPONIN-SPECIFIC AUTOANTIBODIES, AND ANTIBODY THERAPY CONTAINING HAMA MAY INTERFERE WITH THIS TEST RESULT. CORRELATION TO CLINICAL HISTORY AND PRESENTATION RECOMMENDED. 04/26/2024 7:44 PM TAXICAB DRIVER us Temo Soriano MD LABORATORY Final Resu lt Performing Organization Address [facility]/ZIP Co de Phone Number [facility] [address] [place] [address], [place] [phone] * LIPASE (04/26/2024 7:44 PM TAXICAB DRIVER) Pathologist [facility] [place] LIPASE 21 16 - 77 UNITS/L 04/26/2024 8:13 PM TAXICAB DRIVER [facility] 04/26/2024 7:44 PM TAXICAB DRIVER us Temo Soriano MD LABORATORY Final Resu lt Performing Organization Address City/[facility]/ZIP Co de Phone Number [facility] [address] [place] [address], [place] [phone] from Last 3 Months Insurance [employer] Advance Directives * Full Code (Latest Code Status on File) Date Activated Date Inactivated Comments 10/18/2022 3:43 AM 10/19/2022 2:43 PM * Full Code Date Activated Date Inactivated Comments 09/28/2022 12:58 PM 10/03/2022 3:47 PM * Full Code Date Activated Date Inactivated Comments 09/08/2022 8:27 AM 09/10/2022 2:47 PM * Full Code Date Activated Date Inactivated Comments 09/03/2022 7:26 AM 09/06/2022 6:01 PM * Full Code Date Activated Date Inactivated Comments 10/18/2019 6:07 PM 10/19/2019 4:11 PM Care Teams Grounds Caretaker Relationship Specialty Start Date End Date Td Lopez MD PCP - General FAMILY PRACTICE 08/18/19
--- OUTSIDE RECORDS SUMMARY | 2024-06-21 17:37 | XMS_ITS | Clinical Summary ---
Author Organization [facility] [employer] Address [address] [place] [address] Care Team Providers Care Adding Machine Mechanic Name Role Phone Alee Zhao MD Primary Care Provider [phone] Source Comments [facility] [employer],non-owned Affiliates and Associated Physician Practices is amultiple site organization consisting of ambulatory clinics and hospital sitesin [place], [place], [place] and [place]. This disclosure is being madepursuant to the Care Everywhere program and may not contain all information available regarding this patient. Last updated 18.[facility] [employer] Allergies Active Allergy Reactions Criticality Noted Date Comments Doxycycline Nausea Low 06/11/2017 Metoclopramide Other Low 06/11/2017 Muscle tremors Sulfa Drugs Other Low 06/11/2017 Muscle tremors Medications * Be aware that medications may not be up to date on this document. Alwaysverify current medications with the patient. Medication Sig Dispensed Refills Start Date End Date Status HYDROcodone-acetam inophen (NORCO) 5-325 MG tablet Take 1-2 tablets by mouth every 6 hours as needed for Pain Do not exceed 3 grams of acetaminophen (TYLENOL) daily. 15 tablet 03/26/2018 Active Additional Information Patient not taking.Reported on 01/23/2019 omeprazole (PRILOSEC) 20 MG capsule Take 20 mg by mouth daily before breakfast Active ondansetron (ZOFRAN) 4 MG tablet Take 4 mg by mouth every 6 hours as needed for Nausea/Vomiting Active Active Problems Problem Noted Date Diagnosed Date Nausea 06/11/2017 Social History Tobacco Use Types Packs/Day Years Used Date Smoking Tobacco: Every Day Cigarettes Smokeless Tobacco: Never Alcohol Use Standard Drinks/Week Comments Not Currently 0 (1 standard drink = 0.6 oz pur e alcohol) Sex and Gender Information Value Date Recorded Sex Assigned at Not on file Gender Identity Not on file Sexual Orientation Not on file Last Filed Vital Signs Vital Sign Reading Time Taken Comments Blood Pressure 120/71 03/17/2019 5:03 PM FORK LIFT TECHNICIAN Pulse 75 03/17/2019 5:03 PM FORK LIFT TECHNICIAN Temperature 36.9 C (98.4 F) 03/17/2019 2:00 PM FORK LIFT TECHNICIAN Respiratory Rate 17 03/17/2019 5:03 PM FORK LIFT TECHNICIAN Oxygen Saturation 99% 03/17/2019 5:03 PM FORK LIFT TECHNICIAN Inhaled Oxygen Concentration - - Weight 77.1 kg (170 lb) 03/17/2019 2:00 PM FORK LIFT TECHNICIAN Height 177.8 cm (5' 10 ) 03/17/2019 2:00 PM FORK LIFT TECHNICIAN Body Mass Index 24.39 03/17/2019 2:00 PM FORK LIFT TECHNICIAN Plan of Treatment Health Maintenance Due Date Last Done Comments LIPID TESTING 1980 DTAP/TDAP/TD VACCINES (1 - Tdap) 2000 HEPATITIS B VACCINE (1 of 3 - 19+ 3-dose series) 2000 PNEUMOCOCCAL VACCINE (1 of 2 - PCV) 2000 COVID-19 VACCINE ( - 2023-2 5 season) 2024 INFLUENZA VACCINE (#1) 2024 DEPRESSION SCREENING 05/11/2024 ZOSTER VACCINE (1 of 2) 2031 HEPATITIS C SCREENING Completed 03/27/2018 HIV SCREENING Completed 03/27/2018 HIB VACCINE Aged Out No longer eligi ble based on patient's age to complete this topic HPV VACCINE Aged Out No longer eligi ble based on patient's age to complete this topic MENINGOCOCCAL (Group B) VACCINE Aged Out No longer eligible based on patient's age to complete this topic MENINGOCOCCAL VACCINE Aged Out No erasmo karthik eligible based on patient's age to complete this topic Procedures Procedure Name Priority Date/Time Associated Diagnosis Comments HEPATITIS C AB SCREEN RFLX NAAT QUANT STAT 03/27/2018 9:12 PM FORK LIFT TECHNICIAN HIV-1 HIV-2 ANTIGEN/ANTIBODY STAT 03/27/2018 9:12 PM FORK LIFT TECHNICIAN from Last 3 Months or Most Recently Relevant to Health Maintenance Results * HIV-1 HIV-2 ANTIGEN/ANTIBODY (03/27/2018 9:12 PM FORK LIFT TECHNICIAN) HIV Antigen/Antibod y 1 & 2 Non-reacti ve Non-react nemesio 03/27/2018 10:17 PM FORK LIFT TECHNICIAN [facility] Comment: Neither HIV-1 p24 Antigen nor HIV-1/HIV-2 Antibodies are detected. Blood BLOOD SPECIMEN / Unknown Venipuncture / Unknown 03/27/2018 9:12 PM FORK LIFT TECHNICIAN 03/27/2018 9:21 PM FORK LIFT TECHNICIAN aDvi Patrick MD LAB - HEMATOLOGY ORD ERABLES [address] [phone] * HEPATITIS C AB SCREEN RFLX NAAT QUANT (03/27/2018 9:12 PM FORK LIFT TECHNICIAN) Hepatitis C Antibody Non-react nemesio Non-reac tive 03/27/2018 10:20 PM FORK LIFT TECHNICIAN [facility] Comment: Hepatitis C Antibody screen indicates no serologic evidence of past or current infection with Hepatitis C Virus. Patients with unexplained liver disease who are immunocompromised or suspected of having acute Hepatitis C infection may benefit from Nucleic Acid Test (RINKU) for Hepatitis C Viral RNA to confirm Hepatitis C status. Blood BLOOD SPECIMEN / Unknown Venipuncture / Unknown 03/27/2018 9:12 PM FORK LIFT TECHNICIAN 03/27/2018 9:21 PM FORK LIFT TECHNICIAN Davi Patrick MD LAB - CHEMISTRY ORDE SAMEER [address] [phone] from Last 3 Months or Most Recently Relevant to Health Maintenance Care Teams Adding Machine Mechanic Relationship Specialty Start Date End Date Alee Zhao MD [address] [place] [phone] PCP - General Family Medicine 03/25/18
--- OUTSIDE RECORDS SUMMARY | 2024-06-21 17:37 | XMS_ITS | Patient Health Record ---
Author Organization [facility] Address [address] [facility] [address] [place] [address] Care Team Providers Care Workforce Analyst Name Role Phone John TUCKER, Td Primary Care Provider Tucker FIGUEROA [employer], NATALIYA Unavailable IFRAH TUCKER, BRODERICK Unavailable ALLERGIES Allergen (clinical drug ingredient) Drug/Non Drug Allergy documented on EMR Reaction Allergy Type Onset Date Status Substance with sulfonamide structure and antibacterial mechanism of action (substance) sulfa (uncoded) Unknown Allergy Active metoclopramide Metoclopramide HCl Unknown Drug Allergy Active doxycycline Doxycycline Unknown Drug Allergy Act nemesio REASON FOR REFERRAL No Information MEDICATIONS Medication SIG (Take, Route, Frequency, Duration) Notes Start Date End Date Status Famotidine 40 MG 1 tablet at bedtime Orally Once a day for 30 days Active Hyoscyamine Sulfate 0.125 MG DISSOLVE 1 TABLET ON THE TONGUE 4 TIMES A DAY NEEDED for 90 Active Oscimin 0.125 MG 1 tablet under the t ongue and allow to dissolve as needed Sublingual Three times a day for 90 days Active HYDROcodone-Acetaminophen 5-325 MG 1 tablet as needed Orally every 6 hrs Active Ondansetron 4 MG 1 tablet on the tong ue and allow to dissolve Orally Once a day Active PROBLEMS Problem Type ICD Code Onset Dates Problem Status W/U Status Risk SNOMED Code Notes Problem Other chronic pancreatitis (K86.1) Active confirmed Chronic pancreatitis (755192360) VITAL SIGNS Heart Rate 88 /min 10/23/2023 Blood pressure diastolic 81 mm Hg 10/23/2023 Height 70 in 10/23/2023 Blood pressure systolic 110 mm Hg 10/23/2023 Weight 159 lbs 10/23/2023 BMI 22.81 kg/m2 10/23/2023 Encounters Encounter Location Date Provider Diagnosis [facility] - Op [address] [facility] [place] [phone] 09/21/2023 BRODERICKGENNY RG [facility] - Op [address] [facility] [place], [place] [phone] 09/23/2023 BRODERICKGENNY RG [facility] [address] [place] [address] 02/29/2024 NATALIYA FIGUEROA [facility] [address] [place] [address] 10/23/2023 NATALIYA FIGUEROA Other chronic pancreatitis K86.1 ; Epigastric [...] of compliance with plan. PLAN OF TREATMENT No Information Insurance Providers Payer Name Payer Address Payer Phone Subscriber Number Group Number Insured Name Patient Relationship to Insured Coverage Start Date Coverage End Date [address] [place], [place] [id number] Donovan Bailey Self - patient is the insured MEDICAL (GENERAL) HISTORY Medical History History ICD Code chronic pancreatitis cyclic vomiting hyperemesis cannabis Surgical History Surgery Date(Month/Year) cholecystectomy ERCP
--- OUTSIDE RECORDS SUMMARY | 2024-06-21 17:37 | XMS_ITS ---
Author Organization [facility] Address [address] [place] [address] Care Team Providers Care Cafe Cook Name Role Phone John TUCKER, Td Primary Care Provider Tucker FIGUEROA NP, MELISSA Porras REASON FOR VISIT FU ER Visit Encounters Encounter Location Date Provider Diagnosis [facility] [address] [place] [address] 02/29/2024 MELISSA FIGUEROA PLAN OF TREATMENT No Information Progress Notes * KEVINDonovan MDOB: 2 (44 yo M)Acc No.[id number]:02/29/2024 Progress Notes Patient: Donovan BROWN Appointment Provider: Melissa Figueroa CNP :1980 Age:43 Y Sex:Male Date:02/29/2024 [address] [facility] Pcp:Td Lopez MD Subjective: * Chief Complaints: * 1. FU ER Visit. * Medical History: Objective: Assessment: Plan: * Treatment: * Images: * Sign off status: Pending * Appointment Provider: Melissa Figueroa CNP Date: 02/29/2024
--- OUTSIDE RECORDS SUMMARY | 2024-06-21 17:37 | XMS_ITS | Patient Health Summary ---
Author Organization [facility] Address [address] [place] [address] Care Team Providers Care Radial Router Operator Name Role Phone Alee Zhao MD Primary Care Provider [phone] Note from [facility],non-owned Affiliates and Associated Physician Practices is amultiple site organization consisting of ambulatory clinics and hospital sitesin [place], [place] and [place]. This disclosure is being madepursuant to the Care Everywhere program and may not contain all information available regarding this patient. Last updated 18.[facility] [employer] Allergies * Doxycycline(Nausea) -Low Criticality * Metoclopramide(Other) -Low Criticality * Sulfa Drugs(Other) -Low Criticality Medications * Be aware that medications may not be up to date on this document. Alwaysverify current medications with the patient. * HYDROcodone-acetaminophen (NORCO) 5-325 MG tablet(Started 03/26/2018) Take 1-2 tablets by mouth every 6 hours as needed for Pain Do not exceed 3 grams of acetaminophen (TYLENOL) daily. * omeprazole (PRILOSEC) 20 MG capsule Take 20 mg by mouth daily before breakfast * ondansetron (ZOFRAN) 4 MG tablet Take 4 mg by mouth every 6 hours as needed for Nausea/Vomiting Active Problems Problem Noted Date Diagnosed Date [...] Comments Blood Pressure 120/71 03/17/2019 5:03 PM REIMBURSEMENT AUDITOR Pulse 75 03/17/2019 5:03 PM REIMBURSEMENT AUDITOR Temperature 36.9 C (98.4 F) 03/17/2019 2:00 PM REIMBURSEMENT AUDITOR Respiratory Rate 17 03/17/2019 5:03 PM REIMBURSEMENT AUDITOR Oxygen Saturation 99% 03/17/2019 5:03 PM REIMBURSEMENT AUDITOR Inhaled Oxygen Concentration - - Weight 77.1 kg (170 lb) 03/17/2019 2:00 PM REIMBURSEMENT AUDITOR Height 177.8 cm (5' 10 ) 03/17/2019 2:00 PM REIMBURSEMENT AUDITOR Body Mass Index 24.39 03/17/2019 2:00 PM REIMBURSEMENT AUDITOR Procedures * CARDIAC EKG ORDER(Performed 04/19/2019) * CARDIAC EKG ORDER(Performed 03/18/2019) * URINE DRUG SCREEN IMMUNOASSAY(Performed 03/17/2019) * URINALYSIS W/MICROSCOPIC NO CULTURE(Performed 03/17/2019) * EKG 12-LEAD(Performed 03/17/2019) Performed for Abdominal pain, epigastric * TROPONIN I(Performed 03/17/2019) * LIPASE BLOOD(Performed 03/17/2019) * COMPREHENSIVE METABOLIC PANEL(Performed 03/17/2019) * CBC W AUTO DIFFERENTIAL(Performed 03/17/2019) * CT ABDOMEN PELVIS W CONTRAST(Performed 01/23/2019) Performed for Abdominal pain, epigastric * URINALYSIS W/MICROSCOPIC NO CULTURE(Performed 01/23/2019) * CULTURE URINE(Performed 01/23/2019) * LIPASE BLOOD(Performed 01/23/2019) * COMPREHENSIVE METABOLIC PANEL(Performed 01/23/2019) * CBC W AUTO DIFFERENTIAL(Performed 01/23/2019) * URINALYSIS REFLEX TO MICROSCOPIC NO CULTURE(Performed 03/27/2018) * COMPREHENSIVE METABOLIC PANEL(Performed 03/27/2018) * CBC W AUTO DIFFERENTIAL(Performed 03/27/2018) * HEPATITIS C AB SCREEN RFLX NAAT QUANT(Performed 03/27/2018) * HIV-1 HIV-2 ANTIGEN/ANTIBODY(Performed 03/27/2018) * CT ABDOMEN PELVIS W CONTRAST(Performed 03/25/2018) Performed for Abdominal pain, generalized * LIPASE BLOOD(Performed 03/25/2018) * COMPREHENSIVE METABOLIC PANEL(Performed 03/25/2018) * CBC W AUTO DIFFERENTIAL(Performed 03/25/2018) * CBC W AUTO DIFFERENTIAL(Performed 06/12/2017) * BASIC METABOLIC PANEL (CALCIUM TOTAL)(Performed 06/12/2017) * CBC W AUTO DIFFERENTIAL(Performed 06/12/2017) * CT ABDOMEN PELVIS W CONTRAST(Performed 06/11/2017) * URINALYSIS REFLEX TO MICROSCOPIC NO CULTURE(Performed 06/11/2017) * LIPASE BLOOD(Performed 06/11/2017) * COMPREHENSIVE METABOLIC PANEL(Performed 06/11/2017) * CBC W AUTO DIFFERENTIAL(Performed 06/11/2017) * CBC W AUTO DIFFERENTIAL(Performed 06/11/2017) Results * CARDIAC EKG ORDER (04/19/2019 2:42 PM REIMBURSEMENT AUDITOR) Only the most recent of2 resultswithin the time period is included. Narrative 04/19/2019 2:42 PM REIMBURSEMENT AUDITOR Ordered by an unspecified provider. Scanned Document CARDIAC SERVICES ORD ERABLES * (ABNORMAL) URINALYSIS W/MICROSCOPIC NO CULTURE (03/17/2019 5:36 PM REIMBURSEMENT AUDITOR) Only the most recent of2 resultswithin the time period is included. Color UA Yellow Straw, Yellow, Colorless 03/17/2019 5:50 PM [facility] Clarity UA Slt Cloudy Clear, Slt Cloudy 03/17/2019 5:50 PM [facility] Specific [place] UA 1.012 1.005 - 1.030 03/17/2019 5:50 PM [facility] pH UA 9.0(H) 5.0 - 8.0 pH 03/17/2019 5:50 PM [facility] Protein UA Negative Negative mg/dL 03/17/2019 5:50 PM [facility] Glucose UA Negative Negative mg/dL 03/17/2019 5:50 PM [facility] Ketone UA Trace(A) Negative mg/dL 03/17/2019 5:50 PM [facility] Bilirubin UA Negative Negative mg/dL 03/17/2019 5:50 PM [facility] Blood UA Negative Negative 03/17/2019 5:50 PM [facility] Nitrite UA Negative Negative 03/17/2019 5:50 PM [facility] Leukocyte Esterase Negative Negative 03/17/2019 5:50 PM [facility] Urobilinogen UA Negative Negative mg/dL 03/17/2019 5:50 PM [facility] RBC UA 0-2 None Seen, 0-2, 3-5 /HPF 03/17/2019 5:50 PM [facility] WBC UA 0-5 None Seen, 0-5 /HPF 03/17/2019 5:50 PM [facility] Squamous Epithelial Cells UA None Seen None Seen, 0-2 /HPF 03/17/2019 5:50 PM [facility] Urine URINE SPECIMEN OBTAINED BY CLEAN CATCH PROCEDURE / Unknown Collection / Unknown 03/17/2019 5:36 PM REIMBURSEMENT AUDITOR 03/17/2019 5:44 PM REIMBURSEMENT AUDITOR Narrative [facility] - 03/17/2019 5:50 PM REIMBURSEMENT AUDITOR Lucia Thompson PA-C LAB - URINAL YSIS ORDERABLES [facility] [address] [place] [address] * (ABNORMAL) DRUG SCREEN TOX URINE PANEL (03/17/2019 5:36 PM REIMBURSEMENT AUDITOR) Amphetamines Screen Urine Negative Negative : < 1000 ng/mL 03/17/2019 6:05 PM [facility] Barbiturates Screen Urine Negative Negative : < 200 ng/mL 03/17/2019 6:05 PM [facility] Benzodiazepine Screen Urine Negative Negative : < 200 ng/mL 03/17/2019 6:05 PM [facility] Opiates Urine Positive(A) Negative : < 300 ng/mL 03/17/2019 6:05 PM [facility] Comment: Positive urine opiate screening results should be confirmed by another generally accepted non-immunological method such as gas chromatography or mass spectrometry. Cocaine Metabolites Urine Negative Negative : < 300 ng/mL 03/17/2019 6:05 PM [facility] Phencyclidine Screen Urine Negative Negative : < 25 ng/ml 03/17/2019 6:05 PM [facility] Cannabinoids Screen Urine Positive(A) Negative : <50 ng/mL 03/17/2019 6:05 PM [facility] Comment: Positive urine cannabinoids (THC) screening results should be confirmed by another generally accepted non-immunological method such as gas chromatography or mass spectrometry. Methadone Screen Urine Negative Negative : < 300 ng/mL 03/17/2019 6:05 PM [facility] Fentanyl Screen Urine Negative Negative : <1.0 ng/mL 03/17/2019 6:05 PM [facility] Urine URINE / Unknown Collection / Unknown 03/17/2019 5:36 PM REIMBURSEMENT AUDITOR 03/17/2019 5:44 PM REIMBURSEMENT AUDITOR Narrative [facility] - 03/17/2019 6:05 PM REIMBURSEMENT AUDITOR The Urine Toxicology Screening Panel does not screen for Propoxyphene, Meprobamate, Carisoprodol, Trazodone, ueom-tud-ipzzzxa medications and/or volatiles (Acetone, Isopropanol, Methanol or Ethylene Glycol). Ethanol, Salicylate, Acetaminophen, Tricyclic Antidepressants and several therapeutic drugs may be individually assayed in serum or plasma specimen. Toxicology testing by the [facility] is an aid to medical diagnosis and treatment of patients. No documented chain of custody was maintained. Results are intended to be used for clinical purposes only. Morena Ulrich MD LAB - URINE CHEMISTR Y ORDERABLES [address] [phone] * EKG 12-LEAD (03/17/2019 4:39 PM REIMBURSEMENT AUDITOR) Ventricular Rate 61 BPM [facility] MUSE Atrial Rate 61 BPM [facility] MUSE P-R Interval 124 ms [facility] MUSE QRS Duration ms 110 ms [facility] MUSE Q-T Interval ms 410 ms [facility] MUSE QTC Calculation (Bezet) 412 ms [facility] MUSE Calculated P [place] 41 degrees SL MUSE Calculated R [place] 43 degrees SL MUSE Calculated T [place] 15 degrees [facility] MUSE Interpretation EKG NORMAL SINUS RHYTHM INCOMPLETE RIGHT BUNDLE BRANCH BLOCK BORDERLINE ECG NO PREVIOUS ECGS AVAILABLE Confirmed by Roberto Sullivan ([id number]), metropolitan editor VERNON ANTONY ([id number]) on 04/07/2019 2:19:17 PM [facility] MUSE 03/17/2019 4:39 PM REIMBURSEMENT AUDITOR 04/07/2019 2:19 PM REIMBURSEMENT AUDITOR Morena Ulrich MD ECG ORDERABLES [facility] MUSE * TROPONIN I (03/17/2019 4:35 PM REIMBURSEMENT AUDITOR) Troponin I <0.010 <0.032 ng/mL 03/17/2019 5:26 PM [facility] Blood BLOOD SPECIMEN / Unknown Venipuncture / Unknown 03/17/2019 4:35 PM REIMBURSEMENT AUDITOR 03/17/2019 4:58 PM REIMBURSEMENT AUDITOR Morena Ulrich MD LAB - CHEMISTRY ORDE RABLES [address] [phone] * (ABNORMAL) CBC W AUTO DIFFERENTIAL (03/17/2019 3:49 PM REIMBURSEMENT AUDITOR) Only the most recent of8 resultswithin the time period is included. WBC 15.7(H) 3.5 - 10.5 10 3/uL 03/17/2019 4:00 PM [facility] RBC 4.82 4.30 - 5.70 10 6/uL 03/17/2019 4:00 PM [facility] Hemoglobin 14.9 13.5 - 17.5 g/dL 03/17/2019 4:00 PM [facility] Hematocrit 43.5 39.0 - 50.0 % 03/17/2019 4:00 PM [facility] MCV 90.2 81.0 - 97.0 fL 03/17/2019 4:00 PM [facility] MCH 30.9 28.0 - 34.0 pg 03/17/2019 4:00 PM [facility] MCHC 34.3 32.0 - 36.0 g/dL 03/17/2019 4:00 PM [facility] Platelet Count 261 150 - 400 10 3/uL 03/17/2019 4:00 PM [facility] RDW-SD 48.0 36.0 - 50.0 fL 03/17/2019 4:00 PM [facility] RDW-CV 14.5 11.2 - 14.8 % 03/17/2019 4:00 PM [facility] MPV 9.6 9.3 - 12.8 fL 03/17/2019 4:00 PM [facility] nRBC Absolute 0.00 0 10 3/uL 03/17/2019 4:00 PM [facility] nRBC Auto 0.0 0 /100 WBC 03/17/2019 4:00 PM [facility] Neutrophils % 88.6(H) 35.0 - 70.0 % 03/17/2019 4:00 PM [facility] Lymphocytes % 5.8(L) 19.7 - 55.1 % 03/17/2019 4:00 PM [facility] Monocytes % 4.5 3.0 - 15.0 % 03/17/2019 4:00 PM [facility] Eosinophils % 0.2 0.0 - 6.0 % 03/17/2019 4:00 PM [facility] Basophil % 0.3 0.0 - 1.5 % 03/17/2019 4:00 PM [facility] Neutrophils Absolute 13.9(H) 1.6 - 7.0 10 3/uL 03/17/2019 4:00 PM [facility] Lymphocyte Absolute 0.9 0.8 - 2.9 10 3/uL 03/17/2019 4:00 PM [facility] Monocytes Absolute 0.71(H) 0.14 - 0.66 10 3/uL 03/17/2019 4:00 PM [facility] Eosinophils Absolute 0.03 0.00 - 0.45 10 3/uL 03/17/2019 4:00 PM [facility] Basophils Absolute 0.04 0.00 - 0.06 10 3/uL 03/17/2019 4:00 PM [facility] Immature Granulocytes % 0.6 0.0 - 1.0 % 03/17/2019 4:00 PM [facility] Blood BLOOD SPECIMEN / Unknown Venipuncture / Unknown 03/17/2019 3:49 PM REIMBURSEMENT AUDITOR 03/17/2019 3:56 PM REIMBURSEMENT AUDITOR aKilash Dempsey MD LAB - HEMATOLOGY ORD ERABLES [facility] [address] [phone] * (ABNORMAL) COMPREHENSIVE METABOLIC PANEL (03/17/2019 3:49 PM [facility]) Only the most recent of5 resultswithin the time period is included. BUN 7 7 - 26 mg/dL 03/17/2019 4:13 PM [facility] Creatinine 0.9 0.6 - 1.2 mg/dL 03/17/2019 4:13 PM [facility] Sodium 141 136 - 145 mmol/L 03/17/2019 4:13 PM [facility] Potassium 4.2 3.5 - 4.5 mmol/L 03/17/2019 4:13 PM [facility] Chloride 106 98 - 107 mmol/L 03/17/2019 4:13 PM [facility] CO2 22 22 - 29 mmol/L 03/17/2019 4:13 PM [facility] Glucose 117(H) 70 - 115 mg/dL 03/17/2019 4:13 PM [facility] Calcium 9.8 8.4 - 10.2 mg/dL 03/17/2019 4:13 PM [facility] Protein Total 7.2 6.0 - 8.3 g/dL 03/17/2019 4:13 PM [facility] Albumin 4.2 3.4 - 5.0 g/dL 03/17/2019 4:13 PM [facility] Bilirubin Total 0.4 0.2 - 1.2 mg/dL 03/17/2019 4:13 PM [facility] Alkaline Phosphatase 81 40 - 150 Units/L 03/17/2019 4:13 PM [facility] ALT 18 0 - 55 Units/L 03/17/2019 4:13 PM [facility] AST 17 5 - 34 Units/L 03/17/2019 4:13 PM [facility] Anion Gap 17 8 - 18 03/17/2019 4:13 PM [facility] BUN/Creatinine Ratio 8 7 - 23 03/17/2019 4:13 PM [facility] Osmolality Calculated 291 270 - 300 mOsm/kg 03/17/2019 4:13 PM [facility] Albumin/Globulin Ratio 1.4 1.1 - 2.3 03/17/2019 4:13 PM [facility] eGFR >60 >60 mL/min/1.7 3 m2 03/17/2019 4:13 PM REIMBURSEMENT AUDITOR [facility] Blood BLOOD SPECIMEN / Unknown Venipuncture / Unknown 03/17/2019 3:49 PM REIMBURSEMENT AUDITOR 03/17/2019 3:56 PM REIMBURSEMENT AUDITOR Kailash Dempsey MD LAB - CHEMISTRY ABDOUL OCONNORLESLIE Performing Organization Address [facility]/[place] [address], [facility] [phone] * LIPASE BLOOD (03/17/2019 3:49 PM REIMBURSEMENT AUDITOR) Only the most recent of4 resultswithin the time period is included. Lipase 21 8 - 78 Units/L 03/17/2019 4:13 PM REIMBURSEMENT AUDITOR [facility] Blood BLOOD SPECIMEN / Unknown Venipuncture / Unknown 03/17/2019 3:49 PM REIMBURSEMENT AUDITOR 03/17/2019 3:56 PM REIMBURSEMENT AUDITOR Kailash Dempsey MD LAB - CHEMISTRY ABDOUL ESTRELLA Performing Organization Address [facility] [place] [address], [facility] [phone] * CT ABDOMEN PELVIS W CONTRAST (01/23/2019 6:33 PM CDT) Only the most recent of3 resultswithin the time period is included. Anatomical Region Laterality Modality Abdomen, Pelvis Computed Tomogra phy 01/23/2019 7:15 PM CDT Impressions 01/24/2019 8:11 AM CDT IMPRESSION: 1. No evidence of acute pancreatitis as clinically queried. 2. No acute visceral, vascular, or osseous process in the abdomen or pelvis. Dictated by Jude Long M.D. (chief radiology) I, Dr. MICHELLE GONZALES M.D. have personally reviewed and interpreted this examination/study. This report was electronically signed by MICHELLE GONZALES M.D. on 01/24/2019 8:11 AM . Narrative 01/24/2019 8:11 AM CDT EXAMINATION: Computed tomography (CT) of the abdomen and pelvis with contrast HISTORY: 38-year-old male with epigastric and left upper quadrant pain, history of pancreatitis TECHNIQUE: CT of the abdomen and pelvis was performed following the uneventful administration of 100 mL of Isovue-370 intravenous contrast according to standard protocol. COMPARISON: CT abdomen pelvis with contrast dated 03/25/2018 FINDINGS: The aorta is normal in course and caliber. The visible lung bases are clear. The imaged heart size is normal without pericardial effusion. The liver enhances homogenously without focal mass/lesion. The hepatic contours are smooth. The main portal vein is patent and nondilated. The gallbladder is surgically absent. The intrahepatic and extrahepatic bile ducts are nondilated. The spleen enhances homogenously without focal lesion. The pancreas appears normal without parenchymal abnormality. No peripancreatic fat stranding is identified to suggest acute pancreatitis. The adrenal glands are normal bilaterally. The kidneys enhance symmetrically without focal mass/lesion, hydronephrosis/hydroureter, or nephrolithiasis. The distal esophagus is normal. The stomach is moderately distended with ingested materials. The small bowel and large bowel are normal in caliber without evidence of wall thickening or obstruction. The appendix appears normal without appendicolith or surrounding inflammatory changes (series 3 images [id number]). No free intraperitoneal air or fluid is identified. No abdominal lymphadenopathy is present. The urinary bladder is distended with fluid and appears normal. The prostate appears normal. No free pelvic fluid is seen. No pelvic or inguinal lymphadenopathy is identified. Bone windows demonstrate no suspicious lytic or blastic lesions. The visible osseous structures are intact. Procedure Note Catherine Gonzales MD - 01/24/2019 EXAMINATION: Computed tomography (CT) of the abdomen and pelvis with contrast HISTORY: 38-year-old male with epigastric and left upper quadrant pain, history of pancreatitis TECHNIQUE: CT of the abdomen and pelvis was performed following the uneventful administration of 100 mL of Isovue-370 intravenous contrast according to standard protocol. COMPARISON: CT abdomen pelvis with contrast dated 03/25/2018 FINDINGS: The aorta is normal in course and caliber. The visible lung bases are clear. The imaged heart size is normalwithout pericardial effusion. The liver enhances homogenously without focal mass/lesion. The hepatic contours are smooth. The main portal vein is patent and nondilated. The gallbladder is surgically absent. The intrahepatic and extrahepatic bile ducts are nondilated. The spleen enhances homogenously without focal lesion. The pancreas appears normal without parenchymal abnormality. No peripancreatic fat stranding is identified to suggest acutepancreatitis. The adrenal glands are normal bilaterally. The kidneys enhance symmetrically without focal mass/lesion, hydronephrosis/hydroureter, or nephrolithiasis. The distal esophagus is normal. The stomach is moderately distended with ingested materials. The small bowel and large bowel are normal incaliber without evidence of wall thickening or obstruction. The appendix appears normal without appendicolith or surrounding inflammatory changes (series3 images 109-112). No free intraperitoneal air or fluid is identified. No abdominal lymphadenopathy is present. The urinary bladder is distended with fluid and appears normal. The prostate appears normal. No free pelvic fluid is seen. No pelvic or inguinal lymphadenopathy is identified. Bone windows demonstrate no suspicious lytic or blastic lesions. The visible osseous structures are intact. IMPRESSION: 1. No evidence of acute pancreatitis as clinically queried. 2. No acute visceral, vascular, or osseous process in the abdomen or pelvis. Dictated by Jude Long M.D. (chief radiology) I, Dr. MICHELLE GONZALES M.D. have personally reviewed and interpretedthis examination/study. This report was electronically signed by MICHELLE GONZALES M.D. on 01/24/2019 8:11 AM . Lucia Thompson PA-C CT ORDERABLE S * CULTURE URINE (01/23/2019 5:28 PM CDT) Culture Urine No growth (<100 CFU/mL) SHORTY 01/25/2019 6:52 AM CDT [facility] Urine URINE SPECIMEN OBTAINED BY CLEAN CATCH PROCEDURE / Unknown Collection / Unknown 01/23/2019 5:28 PM CDT 01/23/2019 5:32 PM CDT Lucia Thompson PA-C LAB - MICROB IOLOGY ORDERABLES [facility] [address] [place] [address], [facility] [phone] * (ABNORMAL) URINALYSIS REFLEX TO MICROSCOPIC NO CULTURE (03/27/2018 10:54 PM REIMBURSEMENT AUDITOR) Only the most recent of2 resultswithin the time period is included. Color UA Yellow Straw, Yellow, Colorless, Light Yellow 03/27/2018 11:08 PM [facility] Clarity UA Hazy(A) Clear 03/27/2018 11:08 PM [facility] Specific [place] UA 1.013 1.001 - 1.030 03/27/2018 11:08 PM [facility] pH UA 8.0 5.0 - 8.0 03/27/2018 11:08 PM [facility] Protein UA Negative <=20 mg/dL 03/27/2018 11:08 PM [facility] Glucose UA Negative Negative mg/dL 03/27/2018 11:08 PM [facility] Ketone UA 80(A) Negative mg/dL 03/27/2018 11:08 PM [facility] Bilirubin UA Negative Negative mg/dL 03/27/2018 11:08 PM [facility] Blood UA Negative Negative 03/27/2018 11:08 PM [facility] Nitrite UA Negative Negative 03/27/2018 11:08 PM [facility] Leukocyte Esterase Negative Negative 03/27/2018 11:08 PM [facility] Urobilinogen UA <2.0 <2.0 mg/dL 8 11:08 PM [facility] RBC UA 2 0 - 8 /HPF 03/27/2018 11:08 PM [facility] WBC UA 1 0 - 2 /HPF 03/27/2018 11:08 PM [facility] Mucus UA Few(A) None /LPF 03/27/2018 11:08 PM [facility] Urine URINE SPECIMEN OBTAINED BY CLEAN CATCH PROCEDURE / Unknown Collection / Unknown 03/27/2018 10:54 PM REIMBURSEMENT AUDITOR 03/27/2018 10:58 PM REIMBURSEMENT AUDITOR Davi Patrick MD LAB - URINALYSIS ORD ERABLES [address] [phone] * HIV-1 HIV-2 ANTIGEN/ANTIBODY (03/27/2018 9:12 PM REIMBURSEMENT AUDITOR) HIV Antigen/Antibod y 1 & 2 Non-reacti ve Non-react nemesio 03/27/2018 10:17 PM REIMBURSEMENT AUDITOR [facility] Comment: Neither HIV-1 p24 Antigen nor HIV-1/HIV-2 Antibodies are detected. Blood BLOOD SPECIMEN / Unknown Venipuncture / Unknown 03/27/2018 9:12 PM REIMBURSEMENT AUDITOR 03/27/2018 9:21 PM REIMBURSEMENT AUDITOR Davi Patrick MD LAB - HEMATOLOGY ORD ERABLES [address] [phone] * HEPATITIS C AB SCREEN RFLX NAAT QUANT (03/27/2018 9:12 PM REIMBURSEMENT AUDITOR) [facility] Hepatitis C Antibody Non-react nemesio Non-reac tive 03/27/2018 10:20 PM REIMBURSEMENT AUDITOR [facility] Comment: Hepatitis C Antibody screen indicates no serologic evidence of past or current infection with Hepatitis C Virus. Patients with unexplained liver disease who are immunocompromised or suspected of having acute Hepatitis C infection may benefit from Nucleic Acid Test (RINKU) for Hepatitis C Viral RNA to confirm Hepatitis C status. Blood BLOOD SPECIMEN / Unknown Venipuncture / Unknown 03/27/2018 9:12 PM REIMBURSEMENT AUDITOR 03/27/2018 9:21 PM REIMBURSEMENT AUDITOR Davi Patrick MD LAB - CHEMISTRY ORDE SAMEER Performing Organization Address City/[facility]/ZIP Co de Phone Number [address] [phone] * (ABNORMAL) BASIC METABOLIC PANEL (CALCIUM TOTAL) (06/12/2017 3:54 AM REIMBURSEMENT AUDITOR) [facility] BUN 9 7 - 26 mg/dL [facility] Creatinine 0.9 0.6 - 1.2 mg/dL [facility] Sodium 138 136 - 145 mmol/L [facility] Potassium 3.4(L) 3.5 - 4.5 mmol/L [facility] Chloride 102 98 - 107 mmol/L [facility] CO2 27 22 - 29 mmol/L [facility] Glucose 84 70 - 115 mg/dL [facility] Calcium 8.9 8.4 - 10.2 mg/dL [facility] Anion Gap 12 8 - 18 [facility] BUN/Creatinine Ratio 10 7 - 23 [facility] Osmolality Calculated 284 270 - 300 mOsm/kg [facility] eGFR >60 >60 mL/min/1.7 3 m2 [facility] Blood specimen (specimen) BLOOD SPECIMEN / Unknown 06/12/2017 3:54 AM REIMBURSEMENT AUDITOR 06/12/2017 4:14 AM REIMBURSEMENT AUDITOR Juan Carlos Morfin MD LAB - CHEMISTRY ABDOUL [facility] Organization Address City/State/ZIP Co de Phone Number [facility] [address] [phone] Care Teams Radial Router Operator Relationship Specialty Start Date End Date Alee Zhao MD [address] [place] [phone] PCP - General Family Medicine 03/25/18
--- OUTSIDE RECORDS SUMMARY | 2024-06-21 17:37 | XMS_ITS | Clinical Summary ---
Author Organization [facility] Address [address] [place] [id number] Phone Care Team Providers Care Bridge Expert Name Role Phone Unavailable Primary Care Provider Unavailabl e Allergies Active Allergy Reactions Criticality Noted Date Comments Doxycycline Hcl Nausea and Vomiting Low 07/06/2022 Haloperidol Lactate Other (See Comments) 07/06/2022 Neck muscle twinge out' and I can't look straight. Metoclopramide Hcl Anxiety Low 07/06/2022 Sulfa (Sulfonamide Antibiotics) Nausea and Vomiting Low 07/06/2022 Medications FAMOTIDINE ORAL Take by mouth. Active HYDROcodone-acet aminophen (NORCO) 5-325 mg tabletIndication s:Gastritis, presence of bleeding unspecified, unspecified chronicity, unspecified gastritis type,Nausea and vomiting, unspecified vomiting type Take 1 Tablet by mouth every 4 hours as needed for Pain. Max Daily Amount: 6 Tablets 12 Tablet 3 Active hyoscyamine 0.[address] 1 Tablet (0.125 mg) under tongue every 4 hours as needed for Spasm. 20 Tablet 3 Active ondansetron (ZOFRAN ODT) 4 mg Tablet, Rapid Dissolve Take 1 Tablet (4 mg) by mouth every 8 hours as needed for Nausea/Emesis . Dissolve tablet on top of tongue, then swallow with saliva. 20 Tablet 3 Active Social History Tobacco Use Types Packs/Day Years Used Date Smoking Tobacco: Every Day Cigarettes Smokeless Tobacco: Never Tobacco Cessation:Ready to Q uit: Not Asked; Counseling Given: Not Answered Alcohol Use Standard Drinks/Week Comments Never 0 (1 standard drink = 0.6 oz pur e alcohol) Feeling Safe Answer Date Recorded Are you in a relationship wi th someone who hurts you emotionally and/or physically? No 07/10/2022 Sex and Gender Information Value Date Recorded Sex Assigned at Not on file Legal Sex Male 7:38 PM [employer] Gender Identity Not on file Sexual Orientation Not on file Last Filed Vital Signs Vital Sign Reading Time Taken Comments Blood Pressure 119/84 07/11/2022 2:03 AM [employer] Pulse 80 07/11/2022 2:03 AM [employer] Temperature 36.3 C (97.4 F) 07/11/2022 2:03 AM [employer] Respiratory Rate 18 07/11/2022 2:03 AM [employer] Oxygen Saturation 97% 07/11/2022 2:03 AM [employer] Inhaled Oxygen Concentration - - Weight 79.4 kg (175 lb) 07/10/2022 8:06 PM [employer] Height 177.8 cm (5' 10 ) 07/10/2022 8:06 PM [employer] Body Mass Index 25.11 07/10/2022 8:06 PM [employer] Plan of Treatment Health Maintenance Due Date Last Done Comments HEPATITIS B VACCINES (1 of 3 - 19+ 3-dose series) 2000 INFLUENZA VACCINE (#1) 2023 , 02/29/2020, 02/09/2018 COVID-19 Vaccine ( season) 2024 10/29/2021, 11/02/2020, 10/05/2020 DTAP/TDAP/TD VACCINES (2 - Td or Tdap) 10/30/2031 10/29/2021 HPV VACCINES Aged Out No longer eligi ble based on patient's age to complete this topic Insurance [facility] [facility] [place]
--- OUTSIDE RECORDS SUMMARY | 2024-06-21 17:37 | XMS_ITS | Referral Summary ---
Author Organization [facility] Address [address] [place] [address] Care Team Providers Care Sulky Driver Name Role Phone Td Lopez MD Primary Care Provider + Angie Woodard MD Unavailable [phone] Vimal Woodruff MD Unavailable [phone] Encounters Date Type Department Care Team Description 06/19/2024 7:49 PM WINDOWS 7 DEPLOYMENT LEAD - 06/19/2024 11:01 PM [facility] Emergency [facility] Emergency Department [address] [place] [address] Terri Fuentes MD Chronic abdominal pain (Primary Dx); Nausea and vomiting, unspecified vomiting type; Leukocytosis, unspecified type Discharge Disposition: Discharge to home or self care 05/30/2024 Documentation [facility] Medical Office [facility] 1 OP Physical Therapy [address] [place] [address] Clem Traylor, CHIEF CUSTOMER OFFICER No Show 05/26/2024 7:15 AM WINDOWS 7 DEPLOYMENT LEAD Therapy [facility] Medical Office [facility] 1 OP Physical Therapy [address] [place] [address] Nelda Perez, PT Neck pain (Primary Dx) 05/26/2024 7:00 AM WINDOWS 7 DEPLOYMENT LEAD Therapy [facility] Medical Office [facility] 1 OP Physical Therapy [address] [place] [phone] Yuliay Fernández, CHIEF CUSTOMER OFFICER Neck pain (Primary Dx) 05/20/2024 4:35 PM WINDOWS 7 DEPLOYMENT LEAD - 05/20/2024 9:22 PM [facility] Emergency [address] [address] Abdominal pain (Primary Dx) Discharge Disposition: Discharge to home or self care 05/19/2024 12:45 PM WINDOWS 7 DEPLOYMENT LEAD Therapy [facility] Medical Office [facility] 1 OP Physical Therapy [address] [place] [phone] Clem Traylor, CHIEF CUSTOMER OFFICER Neck pain (Primary Dx) 05/12/2024 7:45 AM WINDOWS 7 DEPLOYMENT LEAD Therapy [facility] Medical Office [facility] 1 OP Physical Therapy [address] [place] [phone] Clem Traylor, CHIEF CUSTOMER OFFICER Neck pain (Primary Dx) 05/05/2024 7:45 AM [facility] Therapy [facility] Medical Office [facility] 1 OP Physical Therapy [address] [place] [address] Clem Traylor, CHIEF CUSTOMER OFFICER Neck pain (Primary Dx) 04/27/2024 Documentation [facility] Medical Office [facility] 1 OP Physical Therapy [address] [place] [address] Clem Traylor, CHIEF CUSTOMER OFFICER No Show 04/25/2024 12:45 PM [facility] Therapy [facility] Medical Office [facility] 1 OP Physical Therapy [address] [place] [address] Paige Mendez, CHIEF CUSTOMER OFFICER Neck pain (Primary Dx) 04/20/2024 2:56 PM WINDOWS 7 DEPLOYMENT LEAD - 04/20/2024 6:30 PM [facility] Emergency [facility] Emergency Department [address] [place] [address] Blue Warren MD Chronic abdominal pain (Primary Dx) Discharge Disposition: Discharge to home or self care 04/15/2024 Plan of Care Documentation [facility] Medical Office [facility] 1 OP Physical Therapy [address] [place] [address] 04/15/2024 7:45 AM WINDOWS 7 DEPLOYMENT LEAD Therapy [facility] Medical Office [facility] 1 OP Physical Therapy [address] [place] [address] [address] [place] [address] Isreal Healy, PT Neck pain (Primary Dx) 04/01/2024 Telephone [facility] Primary Care [address] [place] [address] [address] [place] [phone] Td Lopez MD 03/25/2024 11:26 AM WINDOWS 7 DEPLOYMENT LEAD - 03/25/2024 11:59 PM WINDOWS 7 DEPLOYMENT LEAD Hospital Encounter [facility] MOB 1 DIAG IMG [address] [place] [address] Neck pain Discharge Disposition: Discharge to home or self care 03/25/2024 10:45 AM WINDOWS 7 DEPLOYMENT LEAD Office Visit [facility] Primary Care [address] [place] [address] [address] [place] [phone] Td Lopez MD Other chronic pancreatitis (HCC) (Primary Dx); Dermatitis; Neck pain; Sphincter of Oddi dysfunction from Last 3 Months Allergies Active Allergy Reactions Criticality Noted Date [...] 03/25/2024 Assessment & Plan (03/25/2024 11:50 AM WINDOWS 7 DEPLOYMENT LEAD): - suspect just muscle strain - will [...] - f/u with GI Current use of fpc anticoagulation 023 Assessment & Plan (09/25/2023 12:23 PM CDT): - stable - continue eliquis Assessment & Plan (03/20/2023 11:08 AM WINDOWS 7 DEPLOYMENT LEAD): - restart eliquis due to life long need for anticoagulation History of thrombosis 03/20/2023 Assessment & Plan (09/25/2023 12:22 PM CDT): - stable - continue eliquis Assessment & Plan (03/20/2023 11:08 AM WINDOWS 7 DEPLOYMENT LEAD): - restart eliquis due to life long [...] famotidine Assessment & Plan (03/20/2023 11:08 AM WINDOWS 7 DEPLOYMENT LEAD): - stable - continue current medication Renal [...] eval. Assessment & Plan (03/25/2024 11:49 AM WINDOWS 7 DEPLOYMENT LEAD): - ref to derm for eval Drug abuse and dependence (CMS/HCC) 02/12/2021 Overview (01/10/2023): Last Assessment & Plan: - using mariajuana occasionally; has had frequent rx for opioids in ER - pt claims at least several days since last ER visit with narcotics given - record review suggests at least 2 wks - will check UDS Chronic pancreatitis ([facility]) 12/21/2020 Overview (02/03/2023): Last Assessment & Plan: - stable today - continue current medications - f/u with Dr Woodard as planned - encouraged pt to come to clinic instead of going to ER next time he has abdominal pain Assessment & Plan (03/25/2024 11:49 AM WINDOWS 7 DEPLOYMENT LEAD): - poor control - continue hyosciamine, famotidine, zofran - ref to GI for continued treatment Assessment & Plan (03/20/2023 11:07 AM WINDOWS 7 DEPLOYMENT LEAD): - stable - continue current medication Duodenal [...] medication Assessment & Plan (07/15/2019 11:44 AM WINDOWS 7 DEPLOYMENT LEAD): - stable - continue creon Annual physical [...] able Assessment & Plan (07/15/2019 11:46 AM WINDOWS 7 DEPLOYMENT LEAD): - encourage healthy diet, exercise - check labs - encouraged quitting smoking 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 Assessment & Plan (07/15/2019 11:37 AM WINDOWS 7 DEPLOYMENT LEAD): - encouraged pt to quit smoking Abdominal [...] GI Assessment & Plan (03/20/2023 11:07 AM WINDOWS 7 DEPLOYMENT LEAD): - stable - continue current medication per [...] 09/17/202209/08 Assessment & Plan (03/20/2023 11:08 AM WINDOWS 7 DEPLOYMENT LEAD): - stable off meds - will monitor [...] (06/27/2021): Moderna x2 Acute on chronic pancreatitis ([facility]) 06/15/2021 09/25/2023 Hyperleukocytosis 06/15/2021 03/18/2023 Drug abuse and dependence ([facility]) 02/12/2021 03/18/2023 Assessment & Plan (02/12/2021 [...] 09/25/2023 Assessment & Plan (03/26/2021 11:41 AM WINDOWS 7 DEPLOYMENT LEAD): - stable today - continue current medications [...] lexapro Assessment & Plan (07/15/2019 11:38 AM WINDOWS 7 DEPLOYMENT LEAD): - stable - continue current plan Gastroesophageal reflux dise ase without esophagitis 07/15/2019 03/18/2023 Overview (07/15/2019): - GERD managed by Dr Woodard - Pt on omeprazole and carafate for sx control Assessment & Plan (01/01/2021 12:09 PM CDT): - stable - continue current medication Assessment & Plan (02/07/2020 2:32 PM CDT): - stable - continue current medication Assessment & Plan (07/15/2019 11:38 AM WINDOWS 7 DEPLOYMENT LEAD): - stable - continue omeprazole and carafate [...] prn Assessment & Plan (07/15/2019 11:44 AM WINDOWS 7 DEPLOYMENT LEAD): - stable - continue bentyl and amitriptyline per GI recs Viral illness 07/08/2019 02/12/2021 Assessment & Plan (07/09/2019 9:12 AM WINDOWS 7 DEPLOYMENT LEAD): Medrol Dosepak as directed. Recommended Mucinex plain [...] (09/17/2018): Added automatically from request for surgery [id number] Assessment & Plan (02/12/2021 11:23 AM CDT): - encouraged pt to f/u with new GI - continue hyoscyamine Assessment & Plan (01/01/2021 12:10 PM CDT): - continue prn oxycodone for now - discussed need to wean off of this as this is not a viable superintendent container terminal solution - will ref to pain management [...] medication Assessment & Plan (07/15/2019 11:36 AM WINDOWS 7 DEPLOYMENT LEAD): - controlled - continue current plan Chronic [...] Cannabinoid hyperemesis syndrome 09/25/2023 Intractable vomiting 021 Immunizations Name Administration Dates Next Due Influenza, Quadrivalent, Spl it, Preservative Free, Intramuscular 03/20/2023,02/12/2021,02/29/2020,02/09 Influenza, Trivalent, Preser vative Free, Intramuscular 03/25/2024 Influenza, Unspecified 02/08/2022,2019(Deferred: Patient Refused) Moderna SARS-CoV-2 Monovalen t Vaccination (12+ YRS) 11/02/2020,10/05/2020 Moderna Sars-cov-2 Monovalen t Booster Vaccination .25 Ml dose (12+ YRS) 10/29/2021 Tdap 10/29/2021 Social History Tobacco Use Types Packs/Day Years Used Date Smoking Tobacco: Every Day Cigarettes Smokeless Tobacco: Never Tobacco Cessation:Ready to Q uit: No; Counseling Given: Yes Alcohol Use Standard Drinks/Week Comments Not Currently 0 (1 standard drink = 0.6 oz pur e alcohol) [facility] [employer] Answer Date Recorded In the past 12 months has [employer], gas, oil, or water [employer] threatened to shut off services in your [...] week 09/21/2023 How often do you attend chur ch or protestant services? Never 09/21/2023 Do you belong to any clubs o r organizations such as baptism groups, unions, fraternal or athletic groups, or [...] place to sleep or slept in a custodial (including now)? No 09/21/2023 Personal Safety Answer Date Recorded Have you ever been in or are you currently in a harmful physical or emotional relationship or is someone making you feel afraid or unsafe? Denies 06/19/2024 Sex and Gender Information Value Date Recorded Sex Assigned at Not on file Legal Sex Male 3:38 AM WINDOWS 7 DEPLOYMENT LEAD Gender Identity Not on file Sexual Orientation Not on file Last Filed Vital Signs Vital Sign Reading Time Taken Comments Blood Pressure 137/99 06/19/2024 10:30 PM WINDOWS 7 DEPLOYMENT LEAD Pulse 93 06/19/2024 10:30 PM WINDOWS 7 DEPLOYMENT LEAD Temperature 36.7 C (98.1 F) 06/19/2024 6:48 PM WINDOWS 7 DEPLOYMENT LEAD Respiratory Rate 23 06/19/2024 10:30 PM WINDOWS 7 DEPLOYMENT LEAD Oxygen Saturation 97% 06/19/2024 10:30 PM WINDOWS 7 DEPLOYMENT LEAD Inhaled Oxygen Concentration - - Weight 74.5 kg (164 lb 3.9 oz) 06/19/2024 6:48 P M WINDOWS 7 DEPLOYMENT LEAD Height 177.8 cm (5' 10 ) 06/19/2024 6:48 PM WINDOWS 7 DEPLOYMENT LEAD Body Mass Index 23.57 06/19/2024 6:48 PM WINDOWS 7 DEPLOYMENT LEAD Plan of Treatment Not on file Medical Devices Explanted Type Area Curtain Worker Device Identifier Shelf Expiration Date Model / Serial / Lot [employer] [id number] Connell Flexi-Stent 7fr 5cm Small Pigtail Flexible .035in Stent - [id number] Implanted:Qty: 1 on 09/18/2018 by Vimal Woodruff MD at [facility] Explanted:Qty: 1 on 09/20/2018 at [facility] Stent N/A: Pancreas [employer] 06/10/2023 [id number] / / [id number] Conmed Gina [id number] [place] Viabil 10mm 8.5fr 6cm 200cm Fully Covered Self Expand Pull - [id number] - [id number] Implanted:Qty: 1 on 09/18/2018 by Vimal Woodruff MD at [facility] Explanted:Qty: 1 on 09/20/2018 at [facility] Stent N/A: Bile Duct Conmed Gina 06/29/2021 [id number] / [id number] / [employer] Connell Flexi-Stent 7fr 9cm Small Pigtail Flexible .035in Stent [id number] - [id number] Implanted:Qty: 1 on 02/07/2022 by Vimal Woodruff MD at [facility] Explanted:Qty: 1 on 02/10/2022 by Vimal Woodruff MD at [facility] Stent N/A: Pancreas [employer] 09/07/2026 [id number] / / [id number] [place] [employer] Gina Wallflex 10mm X 60mm Fully Covered Biliary [id number] - [id number] Implanted:Qty: 1 on 02/07/2022 by Vimal Woodruff MD at [facility] Explanted:Qty: 1 on 02/10/2022 by Vimal Woodruff MD at [facility] Stent N/A: Bile Duct [employer] Gina 11/04/2023 [id number] / / [id number] [employer] Connell Flexi-Stent 7fr 9cm Small Pigtail Flexible .035in Stent [id number] - [id number] Implanted:Qty: 1 on 09/21/2023 by Vimal Woodruff MD at [facility] Explanted:Qty: 1 on 09/23/2023 by Vimal Woodruff MD at [facility] Stent N/A: Pancreas [employer] 03/11/2028 [id number] / / [id number] Description:Not present at b eginning of case. Self migrated out [employer] [place] [employer] G[employer] Wallflex 10mm X 60mm Fully Covered Biliary [id number] - [id number] Implanted:Qty: 1 on 09/21/2023 by Vimal Woodruff MD at [facility] Explanted:Qty: 1 on 09/23/2023 by Vimal Woodruff MD at [facility] Stent N/A: Bile Duct [employer] G[employer] 08/02/2025 [id number] / / [id number] Procedures Procedure Name Priority Date/Time Associated Diagnosis Comments URINALYSIS, MICROSCOPIC ONLY STAT 06/19/2024 7:06 PM WINDOWS 7 DEPLOYMENT LEAD URINALYSIS AND REFLEX TO MICROSCOPIC AND CULTURE STAT 06/19/2024 7:06 PM WINDOWS 7 DEPLOYMENT LEAD ECG 12-LEAD STAT 06/19/2024 7:04 PM WINDOWS 7 DEPLOYMENT LEAD EGFR STAT 06/19/2024 6:56 PM WINDOWS 7 DEPLOYMENT LEAD DIFFERENTIAL AUTO STAT 06/19/2024 6:5 6 PM WINDOWS 7 DEPLOYMENT LEAD TROPONIN T HIGH-SENSITIVITY SERIES (BASELINE, 2HR, 4HR, 6HR) STAT 06/19/2024 6:56 PM WINDOWS 7 DEPLOYMENT LEAD LIPASE STAT 06/19/2024 6:56 PM WINDOWS 7 DEPLOYMENT LEAD COMPREHENSIVE METABOLIC PANEL STAT 06/19/2024 6:56 PM WINDOWS 7 DEPLOYMENT LEAD CBC WITH AUTO DIFFERENTIAL STAT 06/19/2024 6:56 PM WINDOWS 7 DEPLOYMENT LEAD DRUGS OF ABUSE SCREEN, URINE WITHOUT CONFIRMATION STAT 05/20/2024 7:37 PM WINDOWS [address] ABDOMEN PELVIS W CONTRAST ED 05/20/2024 5:56 PM WINDOWS 7 DEPLOYMENT LEAD SEPSIS LACTATE WITH REFLEX STAT 05/20/2024 5:16 PM WINDOWS 7 DEPLOYMENT LEAD EGFR STAT 05/20/2024 4:03 PM WINDOWS 7 DEPLOYMENT LEAD DIFFERENTIAL AUTO STAT 05/20/2024 4:0 3 PM WINDOWS 7 DEPLOYMENT LEAD LIPASE STAT 05/20/2024 4:03 PM WINDOWS 7 DEPLOYMENT LEAD COMPREHENSIVE METABOLIC PANEL STAT 05/20/2024 4:03 PM WINDOWS 7 DEPLOYMENT LEAD CBC WITH AUTO DIFFERENTIAL STAT 05/20/2024 4:03 PM WINDOWS 7 DEPLOYMENT LEAD URINALYSIS AND REFLEX TO MICROSCOPIC AND CULTURE STAT 05/20/2024 4:03 PM WINDOWS 7 DEPLOYMENT LEAD URINALYSIS, MICROSCOPIC ONLY STAT 04/20/2024 4:15 PM WINDOWS 7 DEPLOYMENT LEAD URINALYSIS AND REFLEX TO MICROSCOPIC AND CULTURE STAT 04/20/2024 4:15 PM WINDOWS [address] ABDOMEN PELVIS W CONTRAST ED 04/20/2024 2:02 PM WINDOWS 7 DEPLOYMENT LEAD ECG 12-LEAD STAT 04/20/2024 12:58 PM WINDOWS 7 DEPLOYMENT LEAD EGFR STAT 04/20/2024 12:56 PM WINDOWS 7 DEPLOYMENT LEAD DIFFERENTIAL AUTO STAT 04/20/2024 12: 56 PM WINDOWS 7 DEPLOYMENT LEAD LIPASE STAT 04/20/2024 12:56 PM WINDOWS 7 DEPLOYMENT LEAD COMPREHENSIVE METABOLIC PANEL STAT 04/20/2024 12:56 PM WINDOWS 7 DEPLOYMENT LEAD CBC WITH AUTO DIFFERENTIAL STAT 04/20/2024 12:56 PM WINDOWS 7 DEPLOYMENT LEAD XR SPINE CERVICAL 2 OR 3 VIEWS Schedule Routine, Read Routine (OP Routine) 03/25/2024 11:32 AM WINDOWS 7 DEPLOYMENT LEAD Neck pain from Last 3 Months Results * (ABNORMAL) Urinalysis reflex to microscopic and culture Urine (06/19/2024 7:06 PM WINDOWS 7 DEPLOYMENT LEAD) Color, ur Yellow Yellow Comment:Testing performed by : [address] [address] Clarity, ur Clear Clear NEEL Comment:Testing performed by : [address] [address] Specific gravity, ur 1.023 1.003 - 1.030 NEEL Comment:Testing performed by : [address] [address] pH, urine 6.0 NEEL Comment: Interpretive Data U rine pH is affected by diet, medications, systemic acid-base disturbances, and renal tubular function. pH may affect urinary stone formation. For example, urine pH below 6.0 may help reduce the tendency for calcium phosphate stones and pH greater than 6.0 may reduce the tendency for uric acid stone formation. Source: [place] Current Interpretive Data was last revised on 2017 Testing performed by: [address] [address] Protein, ur ql Trace(A) Negative NEEL Comment:Testing performed by : [address] [place] [address] Glucose, ur ql Negative Negative NEEL Comment:Testing performed by : [facility], [address] [place] [address], [place]., [address] Ketones, ur 1+(A) Negative NEEL SMITH Comment:Testing performed by : [address], [place]., [address] Bilirubin, ur Negative Negative NEEL SMITH Comment:Testing performed by : [address], [place]., [address] Blood, ur Negative Negative NEEL Comment:Testing performed by : [address], [place]., [address] Urobilinogen, ur <2.0 <2.0 mg/dL NEEL SMITH Comment:Testing performed by : [address], [place]., [address] Nitrite, ur Negative Negative NEEL Comment:Testing performed by : [address], [place]., [address] Leukocyte esterase, ur Negative Negative NEEL Comment:Testing performed by : [address], [place]., [address] UA reflex comment Reflex to microscopic UA will be performed. NEEL Comment:Testing performed by : [address] [address] Urine 06/19/2024 7:06 PM WINDOWS 7 DEPLOYMENT LEAD 06/19/2024 7:11 PM WINDOWS 7 DEPLOYMENT LEAD Terri Fuentes MD LAB MICROBIOLOGY - GENER AL ORDERABLES Final Result NEEL [address] [facility] Department [place] [address] * (ABNORMAL) Urinalysis, microscopic only (06/19/2024 7:06 PM WINDOWS 7 DEPLOYMENT LEAD) WBC, ur 0-5 0 - 5 /HPF Comment:Testing performed by : [address], [place]., [address] RBC, ur 0-2 0 - 2 /HPF NEEL SMITH Comment:Testing performed by : [address], [place]., [address] Bacteria, ur Trace(A) NEEL Comment:Testing performed by : [address] [address] Mucous, ur Present(A) NEEL Comment:Testing performed by : [address] [address] Culture Reflex Comment Reflex conditions for urine culture (WBC >10) not met. NEEL Comment:Testing performed by : [address] [address] Urine 06/19/2024 7:06 PM WINDOWS 7 DEPLOYMENT LEAD 06/19/2024 7:11 PM WINDOWS 7 DEPLOYMENT LEAD Terri Fuentes MD LAB URINE ORDERABLES Fin al Result Performing Organization Address City/[facility]/ZIP Co de Phone Number NEEL [address] [facility] Department [place] [address] * ECG 12 lead (06/19/2024 7:04 PM WINDOWS 7 DEPLOYMENT LEAD) Ventricular Rate EKG/Min 67 BPM [facility] Atrial Rate 67 BPM [facility] DC-Interval (MSEC) 106 ms [facility] QRS-Interval (MSEC) 102 ms [facility] QT-Interval (MSEC) 410 ms [facility] QTc 433 ms [facility] P [place] 28 degrees [facility] R [place] 37 degrees [facility] T [place] 50 degrees [facility] Diagnosis Sinus rhythm with short DC with sinus arrhythmia Within normal limits When compared with ECG of 20-APR-2024 12:58, No significant change Confirmed by SULTAN DE JESUS M.D. ([id number]) on 06/20/2024 1:51:59 PM [facility] 06/19/2024 7:04 PM WINDOWS 7 DEPLOYMENT LEAD 06/20/2024 1:51 PM WINDOWS 7 DEPLOYMENT LEAD Terri Fuentes MD ECG ORDERABLES Final Re sult Performing Organization Address City/[facility]/ZIP Co de Phone Number [facility] * Troponin T high-sensitivity series (baseline, 2hr, 4hr, 6hr) (06/19/2024 6:56 PM WINDOWS 7 DEPLOYMENT LEAD) Trop T hs <6 <=22 ng/L Comment: Interpretive Data For further hscTnT resources including the diagnostic algorithm and an aid in interpretation, copy and paste this link: [email or web address].testcatalog.org/show/[email or web address] Current Interpretive Data last revised 2020. Testing performed by: [address] [address] Blood 06/19/2024 6:56 PM WINDOWS 7 DEPLOYMENT LEAD 06/19/2024 7:03 PM WINDOWS 7 DEPLOYMENT LEAD us Terri Fuentes MD LAB BLOOD ORDERABLES Fin al Result NEEL [address] [facility] Department [place] [address] * eGFR (06/19/2024 6:56 PM WINDOWS 7 DEPLOYMENT LEAD) eGFR >90 >=60 mL/min/1. 73 m2 Comment: [...] was last reviewed 2021. Testing performed by: [address] [address] Blood 06/19/2024 6:56 PM WINDOWS 7 DEPLOYMENT LEAD 06/19/2024 7:03 PM WINDOWS 7 DEPLOYMENT LEAD us Terri Fuentes MD LAB BLOOD ORDERABLES Fin al Result NEEL [address] [facility] Department [place] [address] * (ABNORMAL) Differential, auto (06/19/2024 6:56 PM WINDOWS 7 DEPLOYMENT LEAD) Neutrophil abs 17.4(H) 1.5 - 6.5 K/cumm Comment:Testing performed by : [address] [address] Imm gran abs 0.1 0.0 - 0.1 K/cumm NEEL Comment:Testing performed by : [address] [address] Lymphocyte abs 1.2 0.8 - 3.3 K/cumm NEEL Comment:Testing performed by : [address] [address] Monocyte abs 1.1(H) 0.2 - 0.8 K/cumm NEEL Comment:Testing performed by : [address] [address] Eosinophil abs 0.0 0.0 - 0.5 K/cumm NEEL Comment:Testing performed by : [address] [address] Basophil abs 0.1 0.0 - 0.1 K/cumm NEEL Comment:Testing performed by : [address] [address] Neutrophil pct 87.3 % NEEL Comment: Interpretive Data Percent cell count reference ranges are not reported, since discordance with absolute values may lead to misinterpretation of CBC data. Current Interpretive Data was last revised on 2017. Testing performed by: [address] [address] Imm gran pct 0.7 % NEEL Comment: Interpretive Data Percent cell count reference ranges are not reported, since discordance with absolute values may lead to misinterpretation of CBC data. Current Interpretive Data was last revised on 2017. Testing performed by: [address] [address] Lymphocyte pct 6.2 % [facility] Comment: Interpretive Data Percent cell count reference ranges are not reported, since discordance with absolute values may lead to misinterpretation of CBC data. Current Interpretive Data was last revised on 2017. Testing performed by: [address] [address] Monocyte pct 5.5 % [facility] Comment: Interpretive Data Percent cell count reference ranges are not reported, since discordance with absolute values may lead to misinterpretation of CBC data. Current Interpretive Data was last revised on 2017. Testing performed by: [address] [address] Eosinophil pct 0.0 % [facility] Comment: Interpretive Data Percent cell count reference ranges are not reported, since discordance with absolute values may lead to misinterpretation of CBC data. Current Interpretive Data was last revised on 2017. Testing performed by: [address] [address] Basophil pct 0.3 % [facility] Comment: Interpretive Data Percent cell count reference ranges are not reported, since discordance with absolute values may lead to misinterpretation of CBC data. Current Interpretive Data was last revised on 2017. Testing performed by: [address] [address] Blood 06/19/2024 6:56 PM WINDOWS 7 DEPLOYMENT LEAD 06/19/2024 7:03 PM WINDOWS 7 DEPLOYMENT LEAD us Terri Fuentes MD LAB BLOOD ORDERABLES Fin al Result NEEL 03[address] [facility] Department [place] [address] * (ABNORMAL) CBC with auto differential (06/19/2024 6:56 PM WINDOWS 7 DEPLOYMENT LEAD) Pathologist [facility] WBC 20.0(H) 3.8 - 9.9 K/cumm Comment:Testing performed by : [address] [address] Hgb 13.8 13.0 - 17.5 g/dL NEEL Comment:Testing performed by : [address], [address] Hct 41.3 38.9 - 50.3 % NEEL Comment:Testing performed by : [address] [address] Plt 330 150 - 400 K/cumm NEEL Comment:Testing performed by : [address] [address] MPV 9.8 9.1 - 12.3 fL NEEL Comment:Testing performed by : [address], [address] RBC 5.02 4.30 - 5.80 M/cumm NEEL Comment:Testing performed by : [address], [address] MCV 82.3 81.3 - 96.4 fL NEEL Comment:Testing performed by : [address] [address] MCH 27.5 27.1 - 33.3 pg NEEL Comment:Testing performed by : [address], [address] MCHC 33.4 32.3 - 35.7 g/dL NEEL Comment:Testing performed by : [address], [address] RDW CV 15.8(H) 11.1 - 14.9 % NEEL Comment:Testing performed by : [address], [address] RDW SD 46.4 35.7 - 48.1 fL NEEL Comment:Testing performed by : [address] [address] NRBC abs 0.00 0.00 - 0.01 K/cumm NEEL Comment:Testing performed by : [address] [address] Blood (Blood, Venous) 06/19/2024 6:56 PM [employer] 06/19/2024 7:03 PM [employer] Terri Fuentes MD LAB BLOOD ORDERABLES Fin al Result Performing Organization Address City/[facility] Co de Phone Number QU[address] [address] * Lipase (06/19/2024 6:56 PM WINDOWS [employer]MENT LE[employer]) Pathologist [facility] Lipase 90 10 - 99 Units/L Comment:Testing performed by : [address] [address] Blood (Blood, Venous) 06/19/2024 6:56 PM [employer]IND[employer] DE[employer]MENT LEAD 06/19/2024 7:03 PM WINDOWS [employer] DE[employer]MENT LEAD Terri Fuentes MD LAB BLOOD ORDERABLES Fin al Result Performing Organization Address [facility] Co de Phone Number [address] [address] * Comprehensive metabolic panel (06/19/2024 6:56 PM WINDOWS [employer]MENT LE[employer]) Pathologist [facility] Sodium 142 135 - 145 mmol/L Comment:Testing performed by : [address] [address] Potassium, pl 4.2 3.3 - 4.9 mmol/L NEEL Comment:Testing performed by : [address] [address] Chloride 106 97 - 110 mmol/L NEEL Comment:Testing performed by : [address] [address] CO2 22 22 - 32 mmol/L NEEL Comment:Testing performed by : [address] [address] Anion gap 14 2 - 15 mmol/L NEEL Comment:Testing performed by : [address] [address] BUN 15 6 - 25 mg/dL NEEL Comment:Testing performed by : [address] [address] Creatinine 0.97 0.80 - 1.30 mg/dL NEEL Comment:Testing performed by : [address] [address] Glucose 144 70 - 199 mg/dL NEEL [...] classification and Diagnosis of Diabetes Diabetes Care 2021; 46: S19-S40. Current interpretive data was last revised 2022. Testing performed by: [address] [address] Calcium 9.9 8.5 - 10.3 mg/dL NEEL Comment:Testing performed by : [address] [address] Bilirubin, total 0.4 0.1 - 1.2 mg/dL [facility] Comment:Testing performed by : [address] [address] Protein, pl 7.4 6.5 - 8.5 g/dL [facility] Comment:Testing performed by : [address] [address] Albumin 4.5 3.5 - 5.0 g/dL [facility] Comment:Testing performed by : [address] [address] Alk phos 92 40 - 130 Units/L [facility] Comment:Testing performed by : [address] [address] ALT 26 7 - 55 Units/L [facility] Comment:Testing performed by : [address] [address] AST 25 10 - 50 Units/L NEEL Comment:Testing performed by : [address] [address] Blood 06/19/2024 6:56 PM [employer]MENT LEAD 06/19/2024 7:03 PM [employer]MENT LE[employer] us Terri Fuentes MD LAB BLOOD ORDERABLES [facility] al Result [facility] [address] [facility] Department [place] [address] * (ABNORMAL) Drugs of Abuse Screen, Urine without Confirmation (05/20/2024 7:37 PM WINDOWS [employer]MENT LE[employer]) Amphetamine, ur Not Detected CutOff 500ng/mL Comment: Interpretive Data - Amphetamines: Samples containing greater than 500 ng/mL d-methamphetamine or other cross-reacting amphetamine compounds are reported as positive. Amphetamine immunoassays are subject to significant false positive rates due to cross-reactivity of non-amphetamine drugs. Confirmatory testing required for definitive results. Current Interpretive Data was last reviewed 2022. Barbiturates, ur Not Detected CutOff 200ng/mL [facility] Comment: Interpretive Data - Barbiturates: Samples containing greater than 200 ng/mL secobarbital or other cross-reacting barbiturate compounds are reported as positive. False positive and false negative results are possible. Confirmatory testing required for definitive results. Current Interpretive Data was last reviewed 2022. Benzodiazepines, ur Not Detected CutOff 100ng/mL [facility] Comment: Interpretive Data - Benzodiazepines: Samples containing greater than 100 ng/mL nordiazepam or other cross-reacting compounds are reported as positive. False positive and false negative results are possible. Confirmatory testing required for definitive results. Current Interpretive Data was last reviewed 2022. Cannabinoids, ur Screen Positive, presumptive (A) CutOff 50 ng/mL [facility] Comment: Interpretive Data - Cannabinoids: Samples containing greater than 50 ng/mL delta-9 THC -COOH or other cross- reacting compounds are reported as positive. False positive and false negative results are possible. Confirmatory testing required for definitive results. Current Interpretive Data was last reviewed 2022. Cocaine, ur Not Detected CutOff 150ng/mL [facility] Comment: Interpretive Data - Cocaine: Samples containing greater than 150 ng/mL benzoylecgonine or other cross- reacting compounds are reported as positive. False positive and false negative results are possible. Confirmatory testing required for definitive results. Current Interpretive Data was last reviewed 2022. Fentanyl, Ur Not Detected CutOff 5 ng/mL [facility] Comment: Interpretive Data - Fentanyl: Samples containing [...] revised on 2017. Urine 05/20/2024 7:37 PM [employer]MENT LEAD 05/20/2024 7:40 PM W[employer] DE[employer]MENT LEAD Narrative [facility] - 05/20/2024 8:04 PM [employer]MENT LEAD Drug of Abuse screening is performed by immunoassay for medical purposes only. This is not to be used for Pain Management purposes. Kelly LAWTON LAB URINE ORDERABLES F inal Result NEEL [address] [facility] Department [place] [address] * CT Abdomen Pelvis W Contrast (05/20/2024 5:56 PM [employer]IND[employer]MENT LEAD) Anatomical Region Laterality Modality Body N/A Computed Tomogra phy 05/20/2024 6:54 PM [employer] DE[employer]MENT LEAD Narrative 05/20/2024 7:00 PM [employer]MENT LEAD EXAM DESCRIPTION: CT ABDOMEN PELVIS W CONTRAST REASON FOR STUDY: Abdominal pain, acute, nonlocalized Pt c/o abdominal pain [id number] with NV. Hx: cholecystectomy TECHNIQUE: CT scan [...] Francisco Jesus M.D. KT T: Report ID: [id number] Reading Location: [id number] Procedure Note Jose Francisco Jesus MD - 05/20/2024 EXAM DESCRIPTION: CT ABDOMEN PELVIS W CONTRAST REASON FOR STUDY: Abdominal pain, acute, nonlocalized Pt c/o abdominal pain [id number] with NV. Hx: cholecystectomy TECHNIQUE: CT scan [...] Francisco Jesus M.D. KT T: Report ID: [id number] Reading Location: [id number] Kelly LAWTON IMG CT PROCEDURES Renee l Result * Sepsis Lactate w/ Reflex (05/20/2024 5:16 PM [employer]INDOWS [employer]MENT LE[employer]) Sepsis Lactate 1.5 0.7 - 2.0 mmol/L Blood 05/20/2024 5:16 PM [employer]MENT LEAD 05/20/2024 5:18 PM [employer]INDOWS [employer] DE[employer]MENT LEAD Kelly LAWTON LAB BLOOD ORDERABLES F inal Result Performing Organization Address City/[facility]/ZIP Co de Phone Number NEEL [address] [address] * eGFR (05/20/2024 4:03 PM WIND[employer]MENT LEAD) Pathologist [facility] eGFR >90 >=60 mL/min/1. 73 m2 Comment: [...] last reviewed 2021. Blood 05/20/2024 4:03 PM [employer]IND[employer] DE[employer]MENT LEAD 05/20/2024 4:07 PM WINDOWS [employer] DE[employer]MENT LEAD Freddy Bell MD LAB BLOOD ORDERABLES Final Result Performing Organization Address City/[facility]/ZIP Co de Phone Number QUINTEN[address] [place] [address] * (ABNORMAL) Differential, auto (05/20/2024 4:03 PM WINDOWS [employer] DE[employer]MENT LEAD) [facility] Neutrophil abs 15.0(H) 1.5 - 6.5 K/cumm Imm gran abs 0.1 0.0 - 0.1 K/cumm [facility] Lymphocyte abs 3.1 0.8 - 3.3 K/cumm [facility] Monocyte abs 1.6(H) 0.2 - 0.8 K/cumm [facility] Eosinophil abs 0.2 0.0 - 0.5 K/cumm [facility] Basophil abs 0.1 0.0 - 0.1 K/cumm [facility] Neutrophil pct 74.9 % [facility] Comment: Interpretive Data Percent cell count reference ranges are not reported, since discordance with absolute values may lead to misinterpretation of CBC data. Current Interpretive Data was last revised on 2017. Imm gran pct 0.5 % [facility] Comment: Interpretive Data Percent cell count reference ranges are not reported, since discordance with absolute values may lead to misinterpretation of CBC data. Current Interpretive Data was last revised on 2017. Lymphocyte pct 15.3 % [facility] Comment: Interpretive Data Percent cell count reference ranges are not reported, since discordance with absolute values may lead to misinterpretation of CBC data. Current Interpretive Data was last revised on 2017. Monocyte pct 7.8 % [facility] Comment: Interpretive Data Percent cell count reference ranges are not reported, since discordance with absolute values may lead to misinterpretation of CBC data. Current Interpretive Data was last revised on 2017. Eosinophil pct 1.1 % [facility] Comment: Interpretive Data Percent cell count reference ranges are not reported, since discordance with absolute values may lead to misinterpretation of CBC data. Current Interpretive Data was last revised on 2017. Basophil pct 0.4 % [facility] Comment: Interpretive Data Percent cell count reference ranges are not reported, since discordance with absolute values may lead to misinterpretation of CBC data. Current Interpretive Data was last revised on 2017. Blood 05/20/2024 4:03 PM WINDOWS [employer] DEPL[employer]MENT LEAD 05/20/2024 4:07 PM WINDOWS 7 DE[employer]MENT LEAD us Freddy Bell MD LAB BLOOD ORDERABLES Final Result [facility] [address] [facility] Department [place] [address] * (ABNORMAL) Urinalysis reflex to microscopic and culture Urine (05/20/2024 4:03 PM [employer]IND[employer]MENT LEAD) Color, ur Yellow Yellow Clarity, ur Cloudy(A) Clear [facility] Specific gravity, ur 1.021 1.003 - 1.030 [facility] pH, urine 6.5 [facility] Comment: Interpretive Data U rine pH is affected by diet, medications, systemic acid-base disturbances, and renal tubular function. pH may affect urinary stone formation. For example, urine pH below 6.0 may help reduce the tendency for calcium phosphate stones and pH greater than 6.0 may reduce the tendency for uric acid stone formation. Source: [facility] Current Interpretive Data was last revised on 2017 Protein, ur ql Negative Negative [facility] Glucose, ur ql Negative Negative [facility] Ketones, ur Negative Negative [facility] Bilirubin, ur Negative Negative [facility] Blood, ur Negative Negative [facility] Urobilinogen, ur <2.0 <2.0 mg/dL [facility] Nitrite, ur Negative Negative [facility] Leukocyte esterase, ur Negative Negative [facility] UA reflex comment Reflex conditions for microscopic UA and culture not met. [facility] Urine 05/20/2024 4:0 3 PM [employer]MENT LEAD 05/20/2024 4:07 PM [employer] DE[employer]MENT LEAD us Freddy Bell MD LAB MICROBIOLOGY - GENERAL ORDERABLES Final Result [facility] [address] [facility] Department [place] [address] * (ABNORMAL) CBC with auto differential (05/20/2024 4:03 PM WIND[employer] DE[employer]MENT LEAD) Pathologist [facility] WBC 20.1(H) 3.8 - 9.9 K/cumm Hgb 14.2 13.0 - 17.5 g/dL [facility] Hct 43.4 38.9 - 50.3 % [facility] Plt 327 150 - 400 K/cumm [facility] MPV 9.9 9.1 - 12.3 fL [facility] RBC 5.20 4.30 - 5.80 M/cumm [facility] MCV 83.5 81.3 - 96.4 fL [facility] MCH 27.3 27.1 - 33.3 pg [facility] MCHC 32.7 32.3 - 35.7 g/dL [facility] RDW CV 15.9(H) 11.1 - 14.9 % [facility] RDW SD 47.5 35.7 - 48.1 fL [facility] NRBC abs 0.00 0.00 - 0.01 K/cumm [facility] Blood (Blood, Venous) 05/20/2024 4:03 PM [employer]MENT LEAD 05/20/2024 4:07 PM WINDOWS 7 DE[employer]MENT LEAD Freddy Bell MD LAB BLOOD ORDERABLES Final Result Performing Organization Address [facility]/ZIP Co de Phone Number [address] [place] [address] * Lipase (05/20/2024 4:03 PM WINDOWS [employer] DEPL[employer]MENT LEAD) [facility] Lipase 34 10 - 99 Units/L Blood (Blood, Venous) 05/20/2024 4:03 PM WINDOWS [employer] DEPL[employer]MENT LEAD 05/20/2024 4:07 PM WINDOWS 7 DEPL[employer]MENT LEAD Freddy Bell MD LAB BLOOD ORDERABLES Final Result Performing Organization Address [facility] de Phone Number [address] [place] [address] * Comprehensive metabolic panel (05/20/2024 4:03 PM WINDOWS [employer] DEPL[employer]MENT LEAD) [facility] Sodium 142 135 - 145 mmol/L Potassium, pl 3.6 3.3 - 4.9 mmol/L [facility] Chloride 105 97 - 110 mmol/L [facility] CO2 24 22 - 32 mmol/L [facility] Anion gap 13 2 - 15 mmol/L [facility] BUN 12 6 - 25 mg/dL [facility] Creatinine 1.00 0.80 - 1.30 mg/dL [facility] Glucose 101 70 - 199 mg/dL [facility] Comment: Interpretive Data Fasting glucose >/= 126 [...] classification and Diagnosis of Diabetes Diabetes Care 2021; 46: S19-S40. Current interpretive data was last revised 2022. Calcium 10.1 8.5 - 10.3 mg/dL [facility] Bilirubin, total 0.3 0.1 - 1.2 mg/dL [facility] Protein, pl 7.3 6.5 - 8.5 g/dL [facility] Albumin 4.5 3.5 - 5.0 g/dL [facility] Alk phos 97 40 - 130 Units/L [facility] ALT 22 7 - 55 Units/L [facility] AST 24 10 - 50 Units/L [facility] Blood 05/20/2024 4:03 PM [employer] DE[employer]MENT LEAD 05/20/2024 4:07 PM [employer] DE[employer]MENT LEAD Freddy Bell MD LAB BLOOD ORDERABLES Final Result [facility] [address] [facility] Department [place] [address] * (ABNORMAL) Urinalysis reflex to microscopic and culture Urine (04/20/2024 4:15 PM [employer] DE[employer]MENT LEAD) Color, ur Yellow Yellow Comment:Testing performed by : [address] [address] Clarity, ur Clear Clear [facility] Comment:Testing performed by : [address] [address] Specific gravity, ur >1.050(A) 1.003 - 1.030 [facility] Comment:Testing performed by : [address] [address] pH, urine 8.5 [facility] Comment: Interpretive Data U rine pH is affected by diet, medications, systemic acid-base disturbances, and renal tubular function. pH may affect urinary stone formation. For example, urine pH below 6.0 may help reduce the tendency for calcium phosphate stones and pH greater than 6.0 may reduce the tendency for uric acid stone formation. Source: [facility] Current Interpretive Data was last revised on 2017 Testing performed by: [facility], [address] [place] [address], [place]., [address] Protein, ur ql 1+(A) Negative NEEL SMITH Comment:Testing performed by : [address], [place]., [address] Glucose, ur ql Negative Negative NEEL Comment:Testing performed by : [address], [place]., [address] Ketones, ur 2+(A) Negative NEEL Comment:Testing performed by : [address], [place]., [address] Bilirubin, ur Negative Negative NEEL Comment:Testing performed by : [address], [place]., [address] Blood, ur Negative Negative NEEL Comment:Testing performed by : [address], [place]., [address] Urobilinogen, ur <2.0 <2.0 mg/dL NEEL Comment:Testing performed by : [address], [place]., [address] Nitrite, ur Negative Negative NEEL Comment:Testing performed by : [address], [place]., [address] Leukocyte esterase, ur Negative Negative NEEL Comment:Testing performed by : [address], [place]., [address] UA reflex comment Reflex to microscopic UA will be performed. NEEL Comment:Testing performed by : [address] [address] Urine 04/20/2024 4:15 PM [employer]MENT LEAD 04/20/2024 4:47 PM [employer] DE[employer]MENT LEAD us Blue Warren MD LAB MICROBIOLOGY - GENERAL ORDERABLES Final Result NEEL SARAH [address] [facility] Department [place] [address] * (ABNORMAL) Urinalysis, microscopic only (04/20/2024 4:15 PM WIND[employer] DE[employer]MENT LEAD) WBC, ur 0-5 0 - 5 /HPF Comment:Testing performed by : [address] [address] RBC, ur 3-5(A) 0 - 2 /HPF NEEL SMITH Comment:Testing performed by : [address] [address] Culture Reflex Comment Reflex conditions for urine culture (WBC >10) not met. NEEL SMITH Comment:Testing performed by : [address] [address] Urine 04/20/2024 4:15 PM [employer] DE[employer]MENT LEAD 04/20/2024 4:47 PM [employer] DE[employer]MENT LEAD us Blue Warren MD LAB URINE ORDERABLE S Final Result Performing Organization Address City/State/[facility] Co de Phone Number NEEL [address] [facility] Department [place] [address] * CT Abdomen Pelvis W Contrast (04/20/2024 2:02 PM W[employer]MENT LEAD) Anatomical Region Laterality Modality Body N/A Computed Tomogra phy 04/20/2024 2:35 PM [employer]MENT LEAD Narrative 04/20/2024 2:48 PM [employer]MENT LEAD EXAM DESCRIPTION: CT ABDOMEN PELVIS W CONTRAST [...] Esa Cao M.D. AG: GONZALES Report ID: [id number] Reading Location: [id number] Procedure Note Esa Cao MD - 04/20/2024 [...] Esa Cao M.D. AG: GONZALES Report ID: [id number] Reading Location: [place] [address] PROCEDURES Final Re sult * ECG 12 lead (04/20/2024 12:58 PM WIND[employer] DEPL[employer]MENT LEAD) Ventricular Rate EKG/Min 62 BPM [facility] Atrial Rate 62 BPM [facility] DC-Interval (MSEC) 84 ms [facility] QRS-Interval (MSEC) 94 ms [facility] QT-Interval (MSEC) 402 ms [facility] QTc 408 ms [facility] P [place] 5 degrees [facility] R [place] 37 degrees [facility] T [place] 41 degrees [facility] Diagnosis Sinus rhythm with short DC Otherwise normal ECG When compared with ECG of 21-FEB-2024 06:26, No significant change was found Confirmed by DARIEL CARLOS M.D. ([id number]) on 04/24/2024 7:39:01 PM [facility] 04/20/2024 12:5 8 PM [employer]MENT LEAD 04/24/2024 7:39 PM W[employer] DE[employer]MENT LEAD us Blue Warren MD ECG ORDERABLES Fin al Result [facility] * eGFR (04/20/2024 12:56 PM WINDOWS [employer] DEPL[employer]MENT LEAD) eGFR >90 >=60 mL/min/1. 73 m2 Comment: [...] was last reviewed 2021. Testing performed by: [facility], [address] [place] [address]., [address] Blood 04/20/2024 12:5 6 PM [employer] DE[employer]MENT LEAD 04/20/2024 1:00 PM W[employer] DE[employer]MENT LEAD us Blue Warren MD LAB BLOOD ORDERABLE S Final Result NEEL [address] [facility] Department [place] [address] * (ABNORMAL) Differential, auto (04/20/2024 12:56 PM WINDOWS [employer] DEPL[employer]MENT LEAD) [facility] Neutrophil abs 13.1(H) 1.5 - 6.5 K/cumm Comment:Testing performed by : [address] [address] Imm gran abs 0.1 0.0 - 0.1 K/cumm NEEL Comment:Testing performed by : [address] [address] Lymphocyte abs 1.2 0.8 - 3.3 K/cumm NEEL Comment:Testing performed by : [address] [address] Monocyte abs 1.2(H) 0.2 - 0.8 K/cumm NEEL Comment:Testing performed by : [address] [address] Eosinophil abs 0.1 0.0 - 0.5 K/cumm NEEL Comment:Testing performed by : [address] [address] Basophil abs 0.1 0.0 - 0.1 K/cumm [facility] Comment:Testing performed by : [address] [address] Neutrophil pct 83.8 % [facility] Comment: Interpretive Data Percent cell count reference ranges are not reported, since discordance with absolute values may lead to misinterpretation of CBC data. Current Interpretive Data was last revised on 2017. Testing performed by: [address] [address] Imm gran pct 0.3 % [facility] Comment: Interpretive Data Percent cell count reference ranges are not reported, since discordance with absolute values may lead to misinterpretation of CBC data. Current Interpretive Data was last revised on 2017. Testing performed by: [address] [address] Lymphocyte pct 7.8 % [facility] Comment: Interpretive Data Percent cell count reference ranges are not reported, since discordance with absolute values may lead to misinterpretation of CBC data. Current Interpretive Data was last revised on 2017. Testing performed by: [address] [address] Monocyte pct 7.4 % ENEL SMITH Comment: Interpretive Data Percent cell count reference ranges are not reported, since discordance with absolute values may lead to misinterpretation of CBC data. Current Interpretive Data was last revised on 2017. Testing performed by: [address] [address] Eosinophil pct 0.4 % NEEL SMITH Comment: Interpretive Data Percent cell count reference ranges are not reported, since discordance with absolute values may lead to misinterpretation of CBC data. Current Interpretive Data was last revised on 2017. Testing performed by: [address] [address] Basophil pct 0.3 % NEEL SMITH Comment: Interpretive Data Percent cell count reference ranges are not reported, since discordance with absolute values may lead to misinterpretation of CBC data. Current Interpretive Data was last revised on 2017. Testing performed by: [address] [address] Blood 04/20/2024 12:5 6 PM [employer]MENT LEAD 04/20/2024 1:00 PM [employer] DE[employer]MENT LEAD us Blue Warren MD LAB BLOOD ORDERABLE S Final Result [facility] [address] [facility] Department [place] [address] * (ABNORMAL) CBC with auto differential (04/20/2024 12:56 PM W[employer]MENT LEAD) WBC 15.7(H) 3.8 - 9.9 K/cumm Comment:Testing performed by : [address] [address] Hgb 13.8 13.0 - 17.5 g/dL NEEL SMITH Comment:Testing performed by : [address] [address] Hct 41.6 38.9 - 50.3 % NEEL SMITH Comment:Testing performed by : [address] [address] Plt 337 150 - 400 K/cumm NEEL SMITH Comment:Testing performed by : [address] [address] MPV 9.6 9.1 - 12.3 fL NEEL SMITH Comment:Testing performed by : [address] [address] RBC 5.09 4.30 - 5.80 M/cumm NEEL SMITH Comment:Testing performed by : [address] [address] MCV 81.7 81.3 - 96.4 fL NEEL Comment:Testing performed by : [address] [address] MCH 27.1 27.1 - 33.3 pg NEEL SMITH Comment:Testing performed by : [address] [address] MCHC 33.2 32.3 - 35.7 g/dL NEEL SMITH Comment:Testing performed by : [address] [address] RDW CV 15.9(H) 11.1 - 14.9 % NEEL SMITH Comment:Testing performed by : [address] [address] RDW SD 47.5 35.7 - 48.1 fL NEEL SMITH Comment:Testing performed by : [address] [address] NRBC abs 0.00 0.00 - 0.01 K/cumm NEEL SMITH Comment:Testing performed by : [address] [address] Blood (Blood, Venous) 04/20/2024 12:56 PM [employer]MENT LEAD 04/20/2024 1:00 PM [employer]MENT LEAD us Blue Warren MD LAB BLOOD ORDERABLE S Final Result NEEL SMITH [address] [facility] Department [place] [address] * Lipase (04/20/2024 12:56 PM W[employer] DE[employer]MENT LEAD) Lipase 23 10 - 99 Units/L Comment:Testing performed by : [address] [address] Blood (Blood, Venous) 04/20/2024 12:56 PM W[employer] DEPL[employer]MENT LEAD 04/20/2024 1:00 PM W[employer] DE[employer]MENT LEAD us Blue Warren MD LAB BLOOD ORDERABLE S Final Result [facility] [address] [facility] Department of Laboratories [place] [address] * Comprehensive metabolic panel (04/20/2024 12:56 PM [employer]) Pathologist [facility] Sodium 142 135 - 145 mmol/L Comment:Testing performed by : [address] [address] Potassium, pl 4.2 3.3 - 4.9 mmol/L NEEL Comment:Testing performed by : [address] [address] Chloride 105 97 - 110 mmol/L NEEL Comment:Testing performed by : [address] [address] CO2 24 22 - 32 mmol/L NEEL Comment:Testing performed by : [address] [address] Anion gap 13 2 - 15 mmol/L NEEL Comment:Testing performed by : [address] [address] BUN 8 6 - 25 mg/dL NEEL Comment:Testing performed by : [address] [address] Creatinine 1.00 0.80 - 1.30 mg/dL NEEL Comment:Testing performed by : [address] [address] Glucose 145 70 - 199 mg/dL NEEL Comment: Interpretive [...] was last revised 2022. Testing performed by: [facility], [address] [place] [address]., [address] Calcium 10.1 8.5 - 10.3 mg/dL NEEL Comment:Testing performed by : [address] [address] Bilirubin, total 0.5 0.1 - 1.2 mg/dL NEEL Comment:Testing performed by : [address] [address] Protein, pl 7.4 6.5 - 8.5 g/dL NEEL Comment:Testing performed by : [address] [address] Albumin 4.6 3.5 - 5.0 g/dL NEEL Comment:Testing performed by : [address] [address] Alk phos 106 40 - 130 Units/L NEEL Comment:Testing performed by : [address] [address] ALT 15 7 - 55 Units/L NEEL Comment:Testing performed by : [address] [address] AST 17 10 - 50 Units/L NEEL Comment:Testing performed by : [address] [address] Blood 04/20/2024 12:5 6 PM [employer] 04/20/2024 1:00 PM [employer] us Blue Warren MD LAB BLOOD ORDERABLE S Final Result NEEL [address] [facility] Department [place] [address] * XR Spine Cervical 2 or 3 Views (03/25/2024 11:32 AM [employer]) Anatomical Region Laterality Modality Spine N/A Computed Radiogr aphy 03/29/2024 11:2 1 AM [employer] Narrative 03/29/2024 11:24 AM [employer] EXAM DESCRIPTION: XR SPINE CERVICAL 2 OR [...] Calvin Linn M.D. MF: MK Report ID: [id number] Reading Location: [id number] Procedure Note Calvin Linn MD - 03/29/2024 EXAM DESCRIPTION: XR SPINE [...] Calvin Linn M.D. MF: MK Report ID: [id number] Reading Location: [id number] us Td Lopez MD IMG XR PROCEDURES Final Result from Last 3 Months Insurance [facility] [place] [facility] Advance Directives For more information, please contact: [phone] * Full Code (Latest Code Status on [...] 11:23 AM 02/10/2022 10:36 PM Care Teams Sulky Driver Relationship Specialty Start Date End Date Td Lopez MD [address] [facility] [address] [place] [address] PCP - General Family Medicine 11/09/20 Angie Woodard MD [address] [facility] [address] [place] [address] Consulting Physician Gastroenterology 07/17/21 Vimal Woodruff MD [address] [facility] [address] [place] [address] Consulting Physician Gastroenterology 02/10/22
--- OUTSIDE RECORDS SUMMARY | 2024-06-21 17:38 | XMS_ITS | Encounter Summary ---
Author Organization [facility] Healthcare Address [address] [place] [address] Care Team Providers Care Special Delivery Carrier Name Role Phone Td Lopez MD Primary Care Provider + Angie Woodard MD Unavailable [phone] Vimal Woodruff MD Unavailable [phone] Reason for Visit * Reason Comments Abdominal Pain Vomiting Encounter Details Date Type Department Care Team (Late st Contact Info) Description 06/19/2024 7:49 PM DOG FOOD DOUGH MIXER - 06/19/2024 11:01 PM [facility] Emergency [facility] Emergency Department [address] [place] [id number] Terri Fuentes MD [address] [place] [address] [place] [address] Chronic abdominal pain (Primary Dx); Nausea and vomiting, unspecified vomiting type; Leukocytosis, unspecified type Discharge Disposition: Discharge to home or self care Social History Tobacco Use Types Packs/Day Years Used Date Smoking Tobacco: Every Day Cigarettes Smokeless Tobacco: Never Alcohol Use Standard Drinks/Week Comments Not Currently 0 (1 standard drink = 0.6 oz pur e alcohol) [facility] Utilities Answer Date Recorded In the past 12 months has e electric, gas, oil, or water company threatened to shut off services in your [...] often do you attend chur ch or religion services? Never 09/21/2023 Do you belong to any clubs o r organizations such as mormon groups, unions, fraternal or athletic groups, or [...] place to sleep or slept in a skilled nursing (including now)? No 09/21/2023 Personal Safety Answer Date Recorded Have you ever been in or are you currently in a harmful physical or emotional relationship or is someone making you feel afraid or unsafe? Denies 06/19/2024 Sex and Gender Information Value Date Recorded Sex Assigned at Not on file Legal Sex Male 3:38 AM DOG FOOD DOUGH MIXER Gender Identity Not on file Sexual Orientation Not on file documented as of this encounter Last Filed Vital Signs Vital Sign Reading Time Taken Comments Blood Pressure 137/99 06/19/2024 10:30 PM DOG FOOD DOUGH MIXER Pulse 93 06/19/2024 10:30 PM DOG FOOD DOUGH MIXER Temperature 36.7 C (98.1 F) 06/19/2024 6:48 PM DOG FOOD DOUGH MIXER Respiratory Rate 23 06/19/2024 10:30 PM DOG FOOD DOUGH MIXER Oxygen Saturation 97% 06/19/2024 10:30 PM DOG FOOD DOUGH MIXER Inhaled Oxygen Concentration - - Weight 74.5 kg (164 lb 3.9 oz) 06/19/2024 6:48 P M DOG FOOD DOUGH MIXER Height 177.8 cm (5' 10 ) 06/19/2024 6:48 PM DOG FOOD DOUGH MIXER Body Mass Index 23.57 06/19/2024 6:48 PM DOG FOOD DOUGH MIXER documented in this encounter Discharge Instructions * Attachments The following attachments cannot be sent through Care Everywhere. * Chronic Abdominal Pain (AfterCare(R) Instructions(ER/ED)) (Panamanian) * Acute Nausea and Vomiting (Discharge Care) (Panamanian) documented in this encounter Medications at Time of Discharge famotidine (PEPCID) 20 mg tablet Take 1 tablet (20 mg total) by mouth daily hyoscyamine (OSCIMIN) 0.125 mg Take 1 tablet (0.125 mg total) by mouth every 8 (eight) hours as needed 01/25/2024 naloxone (NARCAN) 4 mg/actuation spray,non-aerosol Administer 1 spray into affected nostril(s) as needed for opioid reversal Call 911. Administer a single spray in one nostril. Repeat every 3 minutes as needed if no or minimal response. 1 each 2 02/21/2024 ondansetron ODT (ZOFRAN-ODT) 4 mg disintegrating tablet Take 1-2 tablets (4-8 mg total) by mouth every 8 (eight) hours as needed for nausea or vomiting 20 tablet 02/23/2024 prochlorperazine (COMPAZINE) 10 mg tablet Take 1 tablet (10 mg total) by mouth 2 (two) times a day as needed for nausea or vomiting 10 tablet 05/20/2024 documented as of this encounter Discharge Disposition Disposition Code Departure Means Destination Comment s Discharge to home or self care documented in this encounter ED Notes * Terri Fuentes MD - 06/19/2024 8:21 PM CST Triage Chief Complaint: Chief Complaint Patient presents with Abdominal Pain Vomiting Portions of the record may have been created with voice recognition software. Occasional wrong-word or 'kyeoo-k-pkek' substitutions may have occurred due to the inherent limitations of voice recognition software. Read the chart carefully and recognize, using context, where substitutions have occurred. H&P: Donovan Bailey is a 44 y.o. male with h/o cholecystectomy, reported idiopathic chronic pancreatitis, possible sphincter of Oddi dysfunction, probable cannabinoid hyperemesis or cyclical vomiting syndrome, ???drug-seeking behavior?? listed in past medical history in the electronic medical record, pr esents for abdominal pain. He said he went to bed hungry last night which he thinks it was what triggered the vomiting and abdominal pain. The pain is in the upper abdomen and feels like his previousepisodes of abdominal pain for which he visits the emergency department frequently accompanied by vomiting. No change in bowel function. No fever. No dysuria. No hematemesis or black or bloody stool. Social history: Denies alcohol use Past medical/past surgical/meds: Past Medical History: Diagnosis Date Anxiety and depression Cannabis abuse with cannabis-induced disorder (CMS/HCC) (HCC) Cyclic vomiting syndrome Drug-seeking behavior GERD (gastroesophageal reflux disease) Manipulative behavior Pancreatic insufficiency Pancreatitis Sphincter of Oddi dysfunction Past Surgical History: Procedure Laterality Date ERCP LAPAROSCOPIC CHOLECYSTECTOMY HOME MEDICATIONS : famotidine (PEPCID) 20 mg tablet hyoscyamine (OSCIMIN) 0.125 mg naloxone (NARCAN) 4 mg/actuation spray,non-aerosol ondansetron ODT (ZOFRAN-ODT) 4 mg disintegrating tablet prochlorperazine (COMPAZINE) 10 mg tablet Nursing Notes Reviewed. Physical Exam: ED Triage Vitals Temp Pulse Resp BP SpO2 06/19/24184706/19/24184706/19/24184706/19/24184706/19/241847 36.7 ??C (98.1 ??F) 79 20 (!) 155/107 99 % Temp src Heart Rate Source Patient Position BP Location FiO2 (%) 06/19/24184706/19/24 2100 -- -- -- Oral Monitor Height Height Method Weight Weight Method 06/19/24184706/19/24184706/19/24184706/19/241847 1.778 m (5' 10 ) Stated 74.5 kg (164 lb 3.9 oz) Standing scale GENERAL APPEARANCE: Awake and alert. HEAD: Atraumatic. EYES: Sclera anicteric. EOMI. ENT: Tolerates saliva. NECK: Supple. Trachea midline. LUNGS: Respirations unlabored. ABDOMEN: Soft. Non-tender. No guarding or rebound. EXTREMITIES: No acute deformities. SKIN: Warm and dry. NEUROLOGICAL: No gross facial drooping. Moves all 4 extremities spontaneously. Normal speech and mental status. No ataxia noted. PSYCHIATRIC: Normal mood. I have reviewed and interpreted all of the currently available lab results from this visit (if applicable): Labs Reviewed URINALYSIS AND REFLEX TO MICROSCOPIC AND CULTURE - Abnormal Result Value Color, ur Yellow Clarity, ur Clear Specific gravity, ur 1.023 pH, urine 6.0 Protein, ur ql Trace (*) Glucose, ur ql Negative Ketones, ur 1+ (*) Bilirubin, ur Negative Blood, ur Negative Urobilinogen, ur <2.0 Nitrite, ur Negative Leukocyte esterase, ur Negative UA reflex comment Reflex to microscopic UA will be performed. CBC WITH AUTO DIFFERENTIAL - Abnormal WBC 20.0 (*) Hgb 13.8 Hct 41.3 Plt 330 MPV 9.8 RBC 5.02 MCV 82.3 MCH 27.5 MCHC 33.4 RDW CV 15.8 (*) RDW SD 46.4 NRBC abs 0.00 DIFFERENTIAL AUTO - Abnormal Neutrophil abs 17.4 (*) Imm gran abs 0.1 Lymphocyte abs 1.2 Monocyte abs 1.1 (*) Eosinophil abs 0.0 Basophil abs 0.1 Neutrophil pct 87.3 Imm gran pct 0.7 Lymphocyte pct 6.2 Monocyte pct 5.5 Eosinophil pct 0.0 Basophil pct 0.3 URINALYSIS, MICROSCOPIC ONLY - Abnormal WBC, ur 0-5 RBC, ur 0-2 Bacteria, ur Trace (*) Mucous, ur Present (*) Culture Reflex Comment Value: Reflex conditions for urine culture (WBC >10) not met. COMPREHENSIVE METABOLIC PANEL Sodium 142 Potassium, pl 4.2 Chloride 106 CO2 22 Anion gap 14 BUN 15 Creatinine 0.97 Glucose 144 Calcium 9.9 Bilirubin, total 0.4 Protein, pl 7.4 Albumin 4.5 Alk phos 92 ALT 26 AST 25 LIPASE Lipase 90 TROPONIN T HIGH-SENSITIVITY SERIES (BASELINE, 2HR, 4HR, 6HR) Trop T hs <6 EGFR eGFR >90 Radiographs (if obtained): Report Reviewed: No orders to display EKG (if obtained): (All EKGs are interpreted by myself in the absence of a vest tailor) Nothing acute, short FL interval. Normal QTC. Procedures Chart/outside records review shows: Latest Reference Range & Units 11/15/23 07:40 12/30/23 02:54 02/20/24 00:15 02/21/24 08:32 05/20/24 19:37 Cannabinoids, ur CutOff 50 ng/mL Screen Positive, presumptive ! Screen Positive, presumptive ! Screen Positive, presumptive ! Screen Positive, presumptive ! Screen Positive, presumptive ! Latest Reference Range & Units 02/16/24 21:59 02/19/24 19:39 02/21/24 06:31 02/23/24 11:38 04/20/24 12:56 05/20/24 16:03 06/19/24 18:56 WBC 3.8 - 9.9 K/cumm 14.1 (H) 12.7 (H) 8.8 13.2 (H) 15.7 (H) 20.1 (H) 20.0 (H) ED course/MDM: External chart review: (details typically documented under ED workup or in chart/outside record review above in my note, if obtained) History obtained by: (Typically documented in the HPI section, sometimes in ED course when obtainedfrom additional historians but not at the initial time of patient presentation.) Discussion of management: (typically conversations time stamped and documented in ED course), Independent interpretation studies: (typically documented in ED course and please note that labs and Radiology reads obtained in the ED and listed above have been reviewed) Vitals: 06/19/24 2100 06/19/24 2130 06/19/24 2200 06/19/24 2230 BP: 122/71 98/70 117/73 137/99 Pulse: 77 69 87 93 Resp: 8 14 23 Temp: TempSrc: SpO2: 96% 98% 99% 97% Weight: Height: ED Course as of 06/20/24 0148 Time: 06/19 2008 Value: Lipase, Serum: 90 Comment: (Reviewed) By: Terri Fuentes MD Time: 06/19 2008 Value: WBC(!): 20.0 Comment: Elevated By: Terri Fuentes MD Time: 06/19 2025 Comment: Shared decision-making: Patient would like to avoid CT scan. He says this pain is the sameas his chronic recurrent abdominal pain. Nothing new or different. Reviewing electronic medical record. It looks like he chronically has elevated white blood cell count when he was visits ED for abdominal pain. No rebound or guarding or other peritoneal signs. No surgical abdomen . Will hold off on advanced imaging for now. By: Terri Fuentes MD Time: 06/19 2247 Comment: Patient feels improved and would like to be discharged home. He says he does not need any refills of medications such as Zofran or famotidine. He is tolerating p.o.. He says he feels much better now he has had some juice to drink. By: Terri Fuentes MD MDM: 24-year-old with chronic intermittent abdominal pain and vomiting presenting with what he saysisn't exacerbation of his underlying condition. He denies any new or concerning symptoms. Differential diagnosis: Most likely exacerbation of underlying conditions such as chronic pancreatitis or cannabinoid hyperemesis or abdominal migraine. Doubt acute surgical emergency, obstruction, ischemic bowel, infected kidney stone, aortic dissection or ruptured aneurysm. Diagnostic tests and medications considered: Considered a CT scan Shared decision-making: Shared decision-making, patient was like to avoid unnecessary imaging. Given that he reports that he feels quite a bit improved after pain medication and antiemetics, it was up walking around and eating and drinking, okay to forego advanced imaging at this time. He was givena copy of his results and he know he can he can return to the emergency department at any time if symptoms return or if he develops any new concerning symptoms. He said he did not need any refills ofhis home meds. Clinical Impression: 1. Chronic abdominal pain 2. Nausea and vomiting, unspecified vomiting type 3. Leukocytosis, unspecified type Disposition: Discharge (Please note that portions of this note may have been completed with a voice recognition program. Ice Cream Truck Driver errors occur. Please contact me for any clarification.) Terri Fuentes MD 06/20/24 0148 FOOD DOUGH MIXER * Carly Espinoza RN - 06/19/2024 6:46 PM CST Sudden onset mid and upper abd pain with N/V onset at 1500. Hx pancreatitis. Emesis x8 without diarrhea FOOD DOUGH MIXER documented in this encounter Miscellaneous Notes * ED Procedure Note - Terri Fuentes MD - 06/19/2024 7:22 PM DOG FOOD DOUGH MIXER Associated Order(s): ECG 12 lead Procedure ECG 12 lead Date/Time: 06/19/2024 7:22 PM Performed by: Terri Fuentes MD Authorized by: Kelly Krause PA Comments: Sinus rhythm with a normal rate of 67, FL interval calculated to be short. Narrow QRS, normal QTC, normal ST segments and T-waves. Compared to previous April 20, 2024: No change. Terri Fuentes MD 06/19/24 192 FOOD DOUGH MIXER documented in this encounter Plan of Treatment Not on file documented as of this encounter Procedures Procedure Name Priority Date/Time Associated Diagnosis Comments URINALYSIS AND REFLEX TO MICROSCOPIC AND CULTURE STAT 06/19/2024 7:06 PM DOG FOOD DOUGH MIXER URINALYSIS, MICROSCOPIC ONLY STAT 06/19/2024 7:06 PM DOG FOOD DOUGH MIXER ECG 12-LEAD STAT 06/19/2024 7:04 PM DOG FOOD DOUGH MIXER TROPONIN T HIGH-SENSITIVITY SERIES (BASELINE, 2HR, 4HR, 6HR) STAT 06/19/2024 6:56 PM DOG FOOD DOUGH MIXER EGFR STAT 06/19/2024 6:56 PM DOG FOOD DOUGH MIXER DIFFERENTIAL AUTO STAT 06/19/2024 6:5 6 PM DOG FOOD DOUGH MIXER CBC WITH AUTO DIFFERENTIAL STAT 06/19/2024 6:56 PM DOG FOOD DOUGH MIXER LIPASE STAT 06/19/2024 6:56 PM DOG FOOD DOUGH MIXER COMPREHENSIVE METABOLIC PANEL STAT 06/19/2024 6:56 PM DOG FOOD DOUGH MIXER documented in this encounter Results * (ABNORMAL) Urinalysis, microscopic only (06/19/2024 7:06 PM DOG FOOD DOUGH MIXER) WBC, ur 0-5 0 - 5 /HPF Comment:Testing performed by : [address] [address] RBC, ur 0-2 0 - 2 /HPF NEEL Comment:Testing performed by : [address], [place]., [address] Bacteria, ur Trace(A) NEEL Comment:Testing performed by : [address], [place]., [address] Mucous, ur Present(A) NEEL Comment:Testing performed by : [address], [place]., [address] Culture Reflex Comment Reflex conditions for urine culture (WBC >10) not met. NEEL Comment:Testing performed by : [address], [place]., [address] Urine 06/19/2024 7:06 PM DOG FOOD DOUGH MIXER 06/19/2024 7:11 PM DOG FOOD DOUGH MIXER us Terri Fuentes MD LAB URINE ORDERABLES Fin al Result [facility] [address] [facility] Department of Laboratories [place], [place] [id number] * (ABNORMAL) Urinalysis reflex to microscopic and culture Urine (06/19/2024 7:06 PM DOG FOOD DOUGH MIXER) Color, ur Yellow Yellow Comment:Testing performed by : [address] [address] Clarity, ur Clear Clear NEEL Comment:Testing performed by : [address] [address] Specific gravity, ur 1.023 1.003 - 1.030 NEEL Comment:Testing performed by : [address] [address] pH, urine 6.0 NEEL Comment: Interpretive Data U rine pH is affected by diet, medications, systemic acid-base disturbances, and renal tubular function. pH may affect urinary stone formation. For example, urine pH below 6.0 may help reduce the tendency for calcium phosphate stones and pH greater than 6.0 may reduce the tendency for uric acid stone formation. Source: [facility] [employer] Current Interpretive Data was last revised on 2017 Testing performed by: [facility], [address] [place] [address]., [address] Protein, ur ql Trace(A) Negative NEEL Comment:Testing performed by : [facility], [address] [place] [address], [place]., [address] Glucose, ur ql Negative Negative NEEL Comment:Testing performed by : [address] [address] Ketones, ur 1+(A) Negative NEEL Comment:Testing performed by : [address], [place]., [address] Bilirubin, ur Negative Negative NEEL Comment:Testing performed by : [address], [place]., [address] Blood, ur Negative Negative NEEL Comment:Testing performed by : [address], [place]., [address] Urobilinogen, ur <2.0 <2.0 mg/dL NEEL Comment:Testing performed by : [address], [place]., [address] Nitrite, ur Negative Negative NEEL Comment:Testing performed by : [address] [address] Leukocyte esterase, ur Negative Negative NEEL Comment:Testing performed by : [address] [address] UA reflex comment Reflex to microscopic UA will be performed. NEEL Comment:Testing performed by : [address] [address] Urine 06/19/2024 7:06 PM DOG FOOD DOUGH MIXER 06/19/2024 7:11 PM DOG FOOD DOUGH MIXER us Terri Fuentes MD LAB MICROBIOLOGY - GENER AL ORDERABLES Final Result NEEL SMITH [address] [facility] Department of Laboratories [place], [place] [id number] * ECG 12 lead (06/19/2024 7:04 PM DOG FOOD DOUGH MIXER) Ventricular Rate EKG/Min 67 BPM [facility] Atrial Rate 67 BPM [facility] FL-Interval (MSEC) 106 ms [facility] QRS-Interval (MSEC) 102 ms [facility] QT-Interval (MSEC) 410 ms [facility] QTc 433 ms [facility] P [place] 28 degrees [facility] R [place] 37 degrees [facility] T [place] 50 degrees [facility] Diagnosis Sinus rhythm with short FL with sinus arrhythmia Within normal limits When compared with ECG of 20-APR-2024 12:58, No significant change Confirmed by SULTAN DE JESUS M.D. ([id number]) on 06/20/2024 1:51:59 PM [facility] 06/19/2024 7:04 PM DOG FOOD DOUGH MIXER 06/20/2024 1:51 PM DOG FOOD DOUGH MIXER us Terri Fuentes MD ECG ORDERABLES Final Re torrie [facility] * eGFR (06/19/2024 6:56 PM DOG FOOD DOUGH MIXER) eGFR >90 >=60 mL/min/1. 73 m2 Comment: [...] was last reviewed 2021. Testing performed by: [facility], [address] [place] [address]., [address] Blood 06/19/2024 6:56 PM DOG FOOD DOUGH MIXER 06/19/2024 7:03 PM DOG FOOD DOUGH MIXER us Terri Fuentes MD LAB BLOOD ORDERABLES Fin al Result NEEL [address] [facility] [place] [address] * (ABNORMAL) Differential, auto (06/19/2024 6:56 PM DOG FOOD DOUGH MIXER) Neutrophil abs 17.4(H) 1.5 - 6.5 K/cumm Comment:Testing performed by : [address] [address] Imm gran abs 0.1 0.0 - 0.1 K/cumm NEEL Comment:Testing performed by : [address] [address] Lymphocyte abs 1.2 0.8 - 3.3 K/cumm NEEL Comment:Testing performed by : [address] [address] Monocyte abs 1.1(H) 0.2 - 0.8 K/cumm NEEL Comment:Testing performed by : [address] [address] Eosinophil abs 0.0 0.0 - 0.5 K/cumm NEEL Comment:Testing performed by : [address] [address] Basophil abs 0.1 0.0 - 0.1 K/cumm NEEL Comment:Testing performed by : [address] [address] Neutrophil pct 87.3 % NEEL Comment: Interpretive Data Percent cell count reference ranges are not reported, since discordance with absolute values may lead to misinterpretation of CBC data. Current Interpretive Data was last revised on 2017. Testing performed by: [address] [address] Imm gran pct 0.7 % NEEL Comment: Interpretive Data Percent cell count reference ranges are not reported, since discordance with absolute values may lead to misinterpretation of CBC data. Current Interpretive Data was last revised on 2017. Testing performed by: [address] [address] Lymphocyte pct 6.2 % [facility] Comment: Interpretive Data Percent cell count reference ranges are not reported, since discordance with absolute values may lead to misinterpretation of CBC data. Current Interpretive Data was last revised on 2017. Testing performed by: [address] [address] Monocyte pct 5.5 % [facility] Comment: Interpretive Data Percent cell count reference ranges are not reported, since discordance with absolute values may lead to misinterpretation of CBC data. Current Interpretive Data was last revised on 2017. Testing performed by: [address] [address] Eosinophil pct 0.0 % [facility] Comment: Interpretive Data Percent cell count reference ranges are not reported, since discordance with absolute values may lead to misinterpretation of CBC data. Current Interpretive Data was last revised on 2017. Testing performed by: [address] [address] Basophil pct 0.3 % [facility] Comment: Interpretive Data Percent cell count reference ranges are not reported, since discordance with absolute values may lead to misinterpretation of CBC data. Current Interpretive Data was last revised on 2017. Testing performed by: [address] [address] Blood 06/19/2024 6:56 PM DOG FOOD DOUGH MIXER 06/19/2024 7:03 PM DOG FOOD DOUGH MIXER us Terri Fuentes MD LAB BLOOD ORDERABLES Fin al Result NE[facility] [address] [facility] [place] [address] * Troponin T high-sensitivity series (baseline, 2hr, 4hr, 6hr) (06/19/2024 6:56 PM DOG FOOD DOUGH MIXER) Trop T hs <6 <=22 ng/L Comment: Interpretive Data For further hscTnT resources including the diagnostic algorithm and an aid in interpretation, copy and paste this link: [email or web address].testcatalog.org/show/[email or web address] Current Interpretive Data last revised 2020. Testing performed by: [address] [address] Blood 06/19/2024 6:56 PM DOG FOOD DOUGH MIXER 06/19/2024 7:03 PM DOG FOOD DOUGH MIXER Terri Fuentes MD LAB BLOOD ORDERABLES Fin al Result Performing Organization Address [facility] Co de Phone Number [address] [place] [address] * Lipase (06/19/2024 6:56 PM DOG FOOD DOUGH MIXER) Pathologist [facility] Lipase 90 10 - 99 Units/L Comment:Testing performed by : [address] [address] Blood (Blood, Venous) 06/19/2024 6:56 PM DOG FOOD DOUGH MIXER 06/19/2024 7:03 PM DOG FOOD DOUGH MIXER Terri Fuentes MD LAB BLOOD ORDERABLES Fin al Result Performing Organization Address [facility] Co de Phone Number [address] [address] * Comprehensive metabolic panel (06/19/2024 6:56 PM DOG FOOD DOUGH MIXER) Pathologist [facility] Sodium 142 135 - 145 mmol/L Comment:Testing performed by : [address] [address] Potassium, pl 4.2 3.3 - 4.9 mmol/L NEEL SMITH Comment:Testing performed by : [address] [address] Chloride 106 97 - 110 mmol/L NEEL SMITH Comment:Testing performed by : [address] [address] CO2 22 22 - 32 mmol/L NEEL SMITH Comment:Testing performed by : [address] [address] Anion gap 14 2 - 15 mmol/L NEEL Comment:Testing performed by : [address] [address] BUN 15 6 - 25 mg/dL NEEL Comment:Testing performed by : [address], [place]., [address] Creatinine 0.97 0.80 - 1.30 mg/dL NEEL Comment:Testing performed by : [address] [address] Glucose 144 70 - 199 mg/dL [facility] Comment: Interpretive Data Fasting glucose >/= 126 [...] was last revised 2022. Testing performed by: [address] [address] Calcium 9.9 8.5 - 10.3 mg/dL NEEL Comment:Testing performed by : [address] [address] Bilirubin, total 0.4 0.1 - 1.2 mg/dL NEEL Comment:Testing performed by : [address] [address] Protein, pl 7.4 6.5 - 8.5 g/dL NEEL Comment:Testing performed by : [address] [address] Albumin 4.5 3.5 - 5.0 g/dL NEEL Comment:Testing performed by : [address] [address] Alk phos 92 40 - 130 Units/L NEEL Comment:Testing performed by : [address] [address] ALT 26 7 - 55 Units/L NEEL SMITH Comment:Testing performed by : [address] [address] AST 25 10 - 50 Units/L NEEL Comment:Testing performed by : [address] [address] Blood 06/19/2024 6:56 PM DOG FOOD DOUGH MIXER 06/19/2024 7:03 PM DOG FOOD DOUGH MIXER us Terri Fuentes MD LAB BLOOD ORDERABLES Fin al Result [facility] [address] [facility] [place] [address] * (ABNORMAL) CBC with auto differential (06/19/2024 6:56 PM DOG FOOD DOUGH MIXER) WBC 20.0(H) 3.8 - 9.9 K/cumm Comment:Testing performed by : [address] [address] Hgb 13.8 13.0 - 17.5 g/dL NEEL Comment:Testing performed by : [address] [address] Hct 41.3 38.9 - 50.3 % NEEL Comment:Testing performed by : [address] [address] Plt 330 150 - 400 K/cumm NEEL SMITH Comment:Testing performed by : [address] [address] MPV 9.8 9.1 - 12.3 fL NEEL SMITH Comment:Testing performed by : [address] [address] RBC 5.02 4.30 - 5.80 M/cumm NEEL SMITH Comment:Testing performed by : [address] [address] MCV 82.3 81.3 - 96.4 fL NEEL Comment:Testing performed by : [address] [address] MCH 27.5 27.1 - 33.3 pg CERNER MH Comment:Testing performed by : [facility], [address] [place] [address]., [address] MCHC 33.4 32.3 - 35.7 g/dL NEEL SMITH Comment:Testing performed by : [address] [address] RDW CV 15.8(H) 11.1 - 14.9 % NEEL SMITH Comment:Testing performed by : [address] [address] RDW SD 46.4 35.7 - 48.1 fL NEEL SMITH Comment:Testing performed by : [address] [address] NRBC abs 0.00 0.00 - 0.01 K/cumm NEEL SMITH Comment:Testing performed by : [address] [address] Blood (Blood, Venous) 06/19/2024 6:56 PM DOG FOOD DOUGH MIXER 06/19/2024 7:03 PM DOG FOOD DOUGH MIXER us Terri Fuentes MD LAB BLOOD ORDERABLES Fin al Result Performing Organization Address City/State/[facility] Co de Phone Number NEEL [address] [facility] [place] [address] documented in this encounter Visit Diagnoses Diagnosis Chronic abdominal pain- Primary Abdominal pain, unspecified site Nausea and vomiting, unspecified vomiting type Leukocytosis, unspecified type documented in this encounter Administered Medications Inactive Administered Medications - up to 3 most recent administrations Medication Order MAR Action Action Date Dose Rate Site droPERidol (INAPSINE) injection 1.25 mg 1.25 mg, intravenous, Every 20 min PRN, nausea, vomiting, Starting on 06/19/24 at 2134, For 2 doses, If administered IV push, administer over 5 min for adults. famotidine (PEPCID) injection 40 mg 40 mg, intravenous, Administer over 2 Minutes, Once, On 06/19/24 at 2015, For 1 dose Given 06/19/2024 8:27 PM DOG FOOD DOUGH MIXER 40 mg HYDROmorphone (DILAUDID) injection 1 mg 1 mg, intravenous, Administer over 2 Minutes, Once, On 06/19/24 at 2014, For 1 dose, Indications: PainIndications:Pain Given 06/19/2024 8:24 PM DOG FOOD DOUGH MIXER 1 mg HYDROmorphone (DILAUDID) injection 1 mg 1 mg, intravenous, Administer over 2 Minutes, Once, On 06/19/24 at 2134, For 1 dose, Indications: PainIndications:Pain Given 06/19/2024 9:55 PM DOG FOOD DOUGH MIXER 1 mg ketorolac (TORADOL) 30 mg/mL injection 15 mg 15 mg, intravenous, Once, On 06/19/24 at 2014, For 1 dose, For Adult IV push, administer over 15 seconds, Indications: PainIndications:Pain Given 06/19/2024 8:27 PM DOG FOOD DOUGH MIXER 15 mg ondansetron (ZOFRAN) injection 8 mg 8 mg, intravenous, Administer over 2 Minutes, Once, On 06/19/24 at 2014, For 1 dose, Indications: Nausea, VomitingIndications:Nausea,V omiting Given 06/19/2024 8:25 PM DOG FOOD DOUGH MIXER 8 mg sodium chloride 0.9% bolus 1,000 mL 1,000 mL, intravenous, at 1,000 mL/hr, Administer over 1 Hours, Once, On 06/19/24 at 2014, For 1 dose New Bag 06/19/2024 8:22 PM DOG FOOD DOUGH MIXER 1,000 mL 1000 mL/hr documented in this encounter Active and Recently Administered Medications Times are shown in DOG FOOD DOUGH MIXER. Scheduled Medication Order 06/17/2024 06/18/2024 06/19/2024 famotidine (PEPCID) injection 40 mg (COMPLETED) 40 mg, intravenous, Administer over 2 Minutes, Once, On 06/19/24 at 2014, For 1 dose 2026 (Given - Provid er: Kelli García RN) HYDROmorphone (DILAUDID) injection 1 mg (COMPLETED) 1 mg, intravenous, Administer over 2 Minutes, Once, On 06/19/24 at 2014, For 1 dose, Indications: Pain 2023 (Given - Provid er: Kelli García RN) HYDROmorphone (DILAUDID) injection 1 mg (COMPLETED) 1 mg, intravenous, Administer over 2 Minutes, Once, On 06/19/24 at 213, For 1 dose, Indications: Pain 2154 (Given - Provid er: Laura N. Budnicki, JOHN) ketorolac (TORADOL) 30 mg/mL injection 15 mg (COMPLETED) 15 mg, intravenous, Once, On 06/19/24 at 2014, For 1 dose, For Adult IV push, administer over 15 seconds, Indications: Pain 2026 (Given - Provid er: Kelli García, JOHN) ondansetron (ZOFRAN) injection 8 mg (COMPLETED) 8 mg, intravenous, Administer over 2 Minutes, Once, On 06/19/24 at 2014, For 1 dose, Indications: Nausea, Vomiting 2024 (Given - Provid er: Kelli García, JOHN) sodium chloride 0.9% bolus 1,000 mL (COMPLETED) 1,000 mL, intravenous, at 1,000 mL/hr, Administer over 1 Hours, Once, On 06/19/24 at 2014, For 1 dose 2021 (New Bag - Prov ider: Kelli García RN)2151 (Stopped - Provider: Laura Finney RN) PRN Medication Order 06/17/2024 06/18/2024 06/19/2024 droPERidol (INAPSINE) injection 1.25 mg 1.25 mg, intravenous, Every 20 min PRN, nausea, vomiting, Starting on 06/19/24 at 2134, For 2 doses, If administered IV push, administer over 5 min for adults. documented in this encounter Orders Medications Ordered That Byron ht Not Have Been Administered Count Last Ordered Date First Ordered Date droPERidol (INAPSINE) injection 1.25 mg 1 0 06/19/2024 IV Count Last Ordered Date First Orde red Date SALINE LOCK IV 1 06/19/2024 documented in this encounter Care Teams Special Delivery Carrier Relationship Specialty Start Date End Date Td Lopez MD [address] [facility] [address] [place] [address] PCP - General Family Medicine 11/09/20 Angie Woodard MD [address] [facility] [address] [place] [address] Consulting Physician Gastroenterology 07/17/21 Vimal Woodruff MD [address] [address] Consulting Physician Gastroenterology 02/10/22 documented as of this encounter
--- OUTSIDE RECORDS SUMMARY | 2024-06-21 17:38 | XMS_ITS | Encounter Summary ---
Author Organization [facility] Healthcare Address [address] [place] [address] Care Team Providers Care Concrete Floater Name Role Phone Td Lopez MD Primary Care Provider + Angie Woodard MD Unavailable [phone] Vimal Woodruff MD Unavailable [phone] Alannah Baumann MA Unavailable [phone] Encounter Details Date Type Department Care Team (Late st Contact Info) Description 12/30/2023 Orders Only [facility] Health Information Management [address] [place] [id number] Scanning, Provider Social History Tobacco Use Types Packs/Day Years Used Date Smoking Tobacco: Every Day Cigarettes Smokeless Tobacco: Never Alcohol Use Standard Drinks/Week Comments Not Currently 0 (1 standard drink = 0.6 oz pur e alcohol) [facility] Utilities Answer Date Recorded In the past 12 months has [employer], gas, oil, or water [employer] threatened to shut off services in your [...] 09/21/2023 How often do you attend chur or hindu services? Never 09/21/2023 Do you belong to any clubs o r organizations such as faith groups, unions, fraternal or athletic groups, or [...] more points, staff should administer the PHQ-9) 1 03/20/2023 Hunger Vital Sign Answer Date Recorded Within [...] place to sleep or slept in a fpc (including now)? No 09/21/2023 Personal Safety Answer Date Recorded Have you ever been in or are you currently in a harmful physical or emotional relationship or is someone making you feel afraid or unsafe? Denies 01/01/2024 Sex and Gender Information Value Date Recorded Sex Assigned at Not on file Legal Sex Male 3:38 AM SOUND EDITOR Gender Identity Not on file Sexual Orientation Not on file documented as of this encounter Plan of Treatment Not on file documented as of this encounter Procedures Procedure Name Priority Date/Time Associated Diagnosis Comments SCAN - RADIOLOGY/IMAGING 12/30/2023 SCAN - LABS 12/30/2023 documented in this encounter Results * SCAN - LABS (12/30/2023) us Provider Scanning Final Result * SCAN - RADIOLOGY/IMAGING (12/30/2023) Anatomical Region Laterality Modality Other us Provider Scanning Final Result documented in this encounter Visit Diagnoses Not on filedocumented in this encounter Care Teams Concrete Floater Relationship Specialty Start Date End Date Td Lopez MD [address] [facility] [address] [place] [address] PCP - General Family Medicine 11/09/20 Angie Woodard MD [address] [facility] [address] [place] [address] Consulting Physician Gastroenterology 07/17/21 Vimal Woodruff MD [address] [facility] [address] [place] [address] Consulting Physician Gastroenterology 02/10/22 Alannah Baumann MA [address] [place] [address] [address] [place] [address] ACO Care Parish Worker 12/31/23 01/05/24 documented as of this encounter
--- OUTSIDE RECORDS SUMMARY | 2024-06-21 17:38 | XMS_ITS | Referral Summary ---
Author Organization [facility] Address [address] [facility] [place] [address] Care Team Providers Care Radiology Equipment Servicer Name Role Phone Alee Zhao MD Primary Care Provider [phone] Source Comments [facility],non-owned Affiliates and Associated Physician Practices is amultiple site organization consisting of ambulatory clinics and hospital sitesin [place], [place], [place] and [place]. This disclosure is being madepursuant to the Care Everywhere program and may not contain all information available regarding this patient. Last updated 18.[facility] Allergies Active Allergy Reactions Criticality Noted Date [...] Comments Blood Pressure 120/71 03/17/2019 5:03 PM CYLINDER LOADER Pulse 75 03/17/2019 5:03 PM CYLINDER LOADER Temperature 36.9 C (98.4 F) 03/17/2019 2:00 PM CYLINDER LOADER Respiratory Rate 17 03/17/2019 5:03 PM CYLINDER LOADER Oxygen Saturation 99% 03/17/2019 5:03 PM CYLINDER LOADER Inhaled Oxygen Concentration - - Weight 77.1 kg (170 lb) 03/17/2019 2:00 PM CYLINDER LOADER Height 177.8 cm (5' 10 ) 03/17/2019 2:00 PM CYLINDER LOADER Body Mass Index 24.39 03/17/2019 2:00 PM CYLINDER LOADER Plan of Treatment Not on file Procedures Procedure Name Priority Date/Time Associated Diagnosis Comments HEPATITIS C AB SCREEN RFLX NAAT QUANT STAT 03/27/2018 9:12 PM CYLINDER LOADER HIV-1 HIV-2 ANTIGEN/ANTIBODY STAT 03/27/2018 9:12 PM CYLINDER LOADER from Last 3 Months or Most Recently Relevant to Health Maintenance Results * HIV-1 HIV-2 ANTIGEN/ANTIBODY (03/27/2018 9:12 PM CYLINDER LOADER) Pathologist [facility] [place] HIV Antigen/Antibod y 1 & 2 Non-reacti ve Non-react nemesio 03/27/2018 10:17 PM CYLINDER LOADER [facility] Comment: Neither HIV-1 p24 Antigen nor HIV-1/HIV-2 Antibodies are detected. Blood BLOOD SPECIMEN / Unknown Venipuncture / Unknown 03/27/2018 9:12 PM CYLINDER LOADER 03/27/2018 9:21 PM CYLINDER LOADER Davi Patrick MD LAB - HEMATOLOGY ORD ERABLES [facility] [address] [place] [address] * HEPATITIS C AB SCREEN RFLX NAAT QUANT (03/27/2018 9:12 PM CYLINDER LOADER) Pathologist [facility] [place] Hepatitis C Antibody Non-react nemesio Non-reac tisherice 03/27/2018 10:20 PM CYLINDER LOADER [facility] Comment: Hepatitis C Antibody screen indicates no serologic evidence of past or current infection with Hepatitis C Virus. Patients with unexplained liver disease who are immunocompromised or suspected of having acute Hepatitis C infection may benefit from Nucleic Acid Test (RINKU) for Hepatitis C Viral RNA to confirm Hepatitis C status. Blood BLOOD SPECIMEN / Unknown Venipuncture / Unknown 03/27/2018 9:12 PM CYLINDER LOADER 03/27/2018 9:21 PM CYLINDER LOADER Davi Patrick MD LAB - CHEMISTRY ABDOUL ESTRELLA [facility] [address] [phone] from Last 3 Months or Most Recently Relevant to Health Maintenance Care Teams Radiology Equipment Servicer Relationship Specialty Start Date End Date Alee Zhao MD [address] [place] [address] [address] [place] [address] PCP - General Family Medicine 03/25/18
--- OUTSIDE RECORDS SUMMARY | 2024-06-21 17:38 | XMS_ITS ---
Author Organization [facility] Address [address] [place] [address] Care Team Providers Care Tug Hand Name Role Phone John TUCKER, Td Primary Care Provider Unavaila jenny FIGUEROA LODGE OFFICER, NATALIYA Unavailable IFRAH TUCKER, VIMAL Unavailable [phone] REASON FOR VISIT ERCP stent pull INPT Encounters Encounter Location Date Provider Diagnosis [facility] - Op [address] [facility] Scheduling [place], [place] [id number] 09/23/2023 VIMAL RG PLAN OF TREATMENT No Information Progress Notes * Donovan BROWN MDOB: 2 (44 yo M)Acc No.[id number]:09/23/2023 Patient: Donovan BROWN Provider: Vimal Rg MD, FASGE :1980 Age:43 Y Sex:Male Date:09/23/2023 Address:[address] [facility] Pcp:Td Lopez MD * Images: * Sign off status: Pending * Provider: Vimal Rg MD, FASGE Date: 09/23/2023
[2024-06-21 17:40] VITALS: BP 170/99; PULSE 69; RESP 16; TEMP 36.6; O2SAT 100
--- NOTE | 2024-06-21 20:55 | PC.NURSE ---
pt called to triage bay for repeat vital signs 2 times with no answer. @ 2044
--- NOTE | 2024-06-21 21:35 | PC.NURSE ---
Pt called to triage for repeat vital signs with no answer @ 3917
--- OUTSIDE RECORDS SUMMARY | 2024-06-21 22:24 | XMS_ITS | Clinical Summary ---
Author Organization [facility] Address [address] [place] [address] Care Team Providers Care Group Program Manager Name Role Phone Td Lopez MD Primary Care Provider + Angie Woodard MD Unavailable [phone] Vimal Woodruff MD Unavailable [phone] Allergies Active Allergy Reactions Criticality Noted Date [...] 03/25/2024 Assessment & Plan (03/25/2024 11:50 AM SALES OPERATIONS ANALYST): - suspect just muscle strain - will [...] - f/u with GI Current use of fdc anticoagulation 023 Assessment & Plan (09/25/2023 12:23 PM CDT): - stable - continue eliquis Assessment & Plan (03/20/2023 11:08 AM SALES OPERATIONS ANALYST): - restart eliquis due to life long need for anticoagulation History of thrombosis 03/20/2023 Assessment & Plan (09/25/2023 12:22 PM CDT): - stable - continue eliquis Assessment & Plan (03/20/2023 11:08 AM SALES OPERATIONS ANALYST): - restart eliquis due to life long [...] famotidine Assessment & Plan (03/20/2023 11:08 AM SALES OPERATIONS ANALYST): - stable - continue current medication Renal [...] eval. Assessment & Plan (03/25/2024 11:49 AM SALES OPERATIONS ANALYST): - ref to derm for eval Drug abuse and dependence (CMS/HCC) 02/12/2021 Overview (01/10/2023): Last Assessment & Plan: - using mariajuana occasionally; has had frequent rx for opioids in ER - pt claims at least several days since last ER visit with narcotics given - record review suggests at least 2 wks - will check UDS Chronic pancreatitis ([facility]/HCC) 12/21/2020 Overview (02/03/2023): Last Assessment & Plan: - stable today - continue current medications - f/u with Dr Woodard as planned - encouraged pt to come to clinic instead of going to ER next time he has abdominal pain Assessment & Plan (03/25/2024 11:49 AM SALES OPERATIONS ANALYST): - poor control - continue hyosciamine, famotidine, zofran - ref to GI for continued treatment Assessment & Plan (03/20/2023 11:07 AM SALES OPERATIONS ANALYST): - stable - continue current medication Duodenal [...] medication Assessment & Plan (07/15/2019 11:44 AM SALES OPERATIONS ANALYST): - stable - continue creon Annual physical [...] able Assessment & Plan (07/15/2019 11:46 AM SALES OPERATIONS ANALYST): - encourage healthy diet, exercise - check labs - encouraged quitting smoking 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 Assessment & Plan (07/15/2019 11:37 AM SALES OPERATIONS ANALYST): - encouraged pt to quit smoking Abdominal [...] GI Assessment & Plan (03/20/2023 11:07 AM SALES OPERATIONS ANALYST): - stable - continue current medication per [...] 09/17/202209/08 Assessment & Plan (03/20/2023 11:08 AM SALES OPERATIONS ANALYST): - stable off meds - will monitor [...] (06/27/2021): Moderna x2 Acute on chronic pancreatitis ([facility]) 06/15/2021 09/25/2023 Hyperleukocytosis 06/15/2021 03/18/2023 Drug abuse and dependence ([facility]) 02/12/2021 03/18/2023 Assessment & Plan (02/12/2021 [...] 09/25/2023 Assessment & Plan (03/26/2021 11:41 AM SALES OPERATIONS ANALYST): - stable today - continue current medications [...] lexapro Assessment & Plan (07/15/2019 11:38 AM SALES OPERATIONS ANALYST): - stable - continue current plan Gastroesophageal reflux dise ase without esophagitis 07/15/2019 03/18/2023 Overview (07/15/2019): - GERD managed by Dr Woodard - Pt on omeprazole and carafate for sx control Assessment & Plan (01/01/2021 12:09 PM CDT): - stable - continue current medication Assessment & Plan (02/07/2020 2:32 PM CDT): - stable - continue current medication Assessment & Plan (07/15/2019 11:38 AM SALES OPERATIONS ANALYST): - stable - continue omeprazole and carafate [...] prn Assessment & Plan (07/15/2019 11:44 AM SALES OPERATIONS ANALYST): - stable - continue bentyl and amitriptyline per GI recs Viral illness 07/08/2019 02/12/2021 Assessment & Plan (07/09/2019 9:12 AM SALES OPERATIONS ANALYST): Medrol Dosepak as directed. Recommended Mucinex plain [...] (09/17/2018): Added automatically from request for surgery [id number] Assessment & Plan (02/12/2021 11:23 AM CDT): - encouraged pt to f/u with new GI - continue hyoscyamine Assessment & Plan (01/01/2021 12:10 PM CDT): - continue prn oxycodone for now - discussed need to wean off of this as this is not a viable terminal make up operator solution - will ref to pain management [...] medication Assessment & Plan (07/15/2019 11:36 AM SALES OPERATIONS ANALYST): - controlled - continue current plan Chronic [...] Department Care Team Description 06/19/2024 7:49 PM SALES OPERATIONS ANALYST - 06/19/2024 11:01 PM [facility] Emergency [facility] Emergency Department [address] [place] [address] Terri Fuentes MD Chronic abdominal pain (Primary Dx); Nausea and vomiting, unspecified vomiting type; Leukocytosis, unspecified type Discharge Disposition: Discharge to home or self care 05/30/[address] [facility] Medical Office Bldg 1 OP Physical Therapy [address] [place] [phone] Clem Traylor, TIME ANALYSIS CLERK No Show 05/26/2024 7:[address] [facility] Medical Office Bldg 1 OP Physical Therapy [address] [place] [phone] Nelda Perez, PT Neck pain (Primary Dx) 05/26/2024 7:[address] [facility] Medical Office Bldg 1 OP Physical Therapy [address] [place] [address] Yuliya Fernández, CARLOS ALBERTO Neck pain (Primary Dx) 05/20/2024 4:35 PM SALES OPERATIONS ANALYST - 05/20/2024 9:[address] [address] Abdominal pain (Primary Dx) Discharge Disposition: Discharge to home or self care 05/19/2024 12:[address] [facility] Medical Office Bldg 1 OP Physical Therapy [address] [place] [phone] Clem Tryalor, TIME ANALYSIS CLERK Neck pain (Primary Dx) 05/12/2024 7:[address] [facility] Medical Office Bldg 1 OP Physical Therapy [address] [place] [address] Clem Traylor, CARLOS ALBERTO Neck pain (Primary Dx) 05/05/2024 7:45 AM SALES OPERATIONS ANALYST Therapy [facility] Medical Office Bldg 1 OP Physical Therapy [address] [place] [address] Clem Traylor, TIME ANALYSIS CLERK Neck pain (Primary Dx) 04/27/[address] [facility] Medical Office Bldg 1 OP Physical Therapy [address] [place] [address] Clem Traylor, TIME ANALYSIS CLERK No Show 04/25/2024 12:45 PM SALES OPERATIONS ANALYST Therapy [facility] Medical Office Bldg 1 OP Physical Therapy [address] [place] [address] Paige Mendez, CARLOS ALBERTO Neck pain (Primary Dx) 04/20/2024 2:56 PM SALES OPERATIONS ANALYST - 04/20/2024 6:30 PM [facility] Emergency [facility] Emergency Department [address] [place] [address] Blue Warren MD Chronic abdominal pain (Primary Dx) Discharge Disposition: Discharge to home or self care 04/15/2024 7:45 AM SALES OPERATIONS ANALYST Therapy [facility] Medical Office Bldg 1 OP Physical Therapy [address] [place] [address] Isreal Healy, HUMBERTO Neck pain (Primary Dx) 04/15/20[address] [facility] Medical Office Bldg 1 OP Physical Therapy [address] [place] [address] 04/01/2024 Telephone [facility] Medical Group Primary Care [address] [place] [phone] Td Lopez MD 03/25/2024 11:26 AM SALES OPERATIONS ANALYST - 03/25/2024 11:59 PM SALES OPERATIONS ANALYST Hospital Encounter [facility] MOB 1 DIAG IMG [address] [place] [id number] Neck pain Discharge Disposition: Discharge to home or self care 03/25/2024 10:45 AM SALES OPERATIONS ANALYST Office Visit [facility] Medical Group Primary [address] [phone] Td Lopez MD Other chronic [...] drink = 0.6 oz pur e alcohol) [facility] Utilities Answer Date Recorded In the past 12 months has [employer], gas, oil, or water [employer] threatened to shut off services in your [...] week 09/21/2023 How often do you attend [facility] or jew services? Never 09/21/2023 Do you belong to any clubs o r organizations such as rastafari groups, unions, fraternal or athletic groups, or [...] place to sleep or slept in a fci (including now)? No 09/21/2023 Personal Safety Answer Date Recorded Have you ever been in or are you currently in a harmful physical or emotional relationship or is someone making you feel afraid or unsafe? Denies 06/19/2024 Sex and Gender Information Value Date Recorded Sex Assigned at Not on file Legal Sex Male 3:38 AM SALES OPERATIONS ANALYST Gender Identity Not on file Sexual Orientation Not on file Obstetrics History Last Filed Vital Signs Vital Sign Reading Time Taken Comments Blood Pressure 137/99 06/19/2024 10:30 PM SALES OPERATIONS ANALYST Pulse 93 06/19/2024 10:30 PM SALES OPERATIONS ANALYST Temperature 36.7 C (98.1 F) 06/19/2024 6:48 PM SALES OPERATIONS ANALYST Respiratory Rate 23 06/19/2024 10:30 PM SALES OPERATIONS ANALYST Oxygen Saturation 97% 06/19/2024 10:30 PM SALES OPERATIONS ANALYST Inhaled Oxygen Concentration - - Weight 74.5 kg (164 lb 3.9 oz) 06/19/2024 6:48 P M SALES OPERATIONS ANALYST Height 177.8 cm (5' 10 ) 06/19/2024 6:48 PM SALES OPERATIONS ANALYST Body Mass Index 23.57 06/19/2024 6:48 PM SALES OPERATIONS ANALYST Plan of Treatment Health Maintenance Due Date [...] Vaccines Discontinued Medical Devices Explanted Type Area [employer] Teacher Device Identifier Shelf Expiration Date Model / Serial / Lot [employer] 6572 Connell Flexi-Stent 7fr 5cm Small Pigtail Flexible .035in Stent - [id number] Implanted:Qty: 1 on 09/18/2018 by Vimal Woodruff MD at [facility] Explanted:Qty: 1 on 09/20/2018 at [facility] Stent N/A: Pancreas [employer] 06/10/2023 [id number] / / [id number] Conmed Gina [id number] [place] Viabil 10mm 8.5fr 6cm 200cm Fully Covered Self Expand Pull - [id number] - [id number] Implanted:Qty: 1 on 09/18/2018 by Vimal Woodruff MD at [facility] Explanted:Qty: 1 on 09/20/2018 at [facility] Stent N/A: Bile Duct [employer] Gina 06/29/2021 [id number] / [id number] / [employer] Connell Flexi-Stent 7fr 9cm Small Pigtail Flexible .035in Stent 6575 - [id number] Implanted:Qty: 1 on 02/07/2022 by Vimal Woodruff MD at [facility] Explanted:Qty: 1 on 02/10/2022 by Vimal Woodruff MD at [facility] Stent N/A: Pancreas [employer] 09/07/2026 [id number] / / [id number] [employer] Gina Wallflex 10mm X 60mm Fully Covered Biliary [id number] - [id number] Implanted:Qty: 1 on 02/07/2022 by Vimal Woodruff MD at [facility] Explanted:Qty: 1 on 02/10/2022 by Vimal Woodruff MD at [facility] Stent N/A: Bile Duct [employer] Gina 11/04/2023 [id number] / / [id number] [employer] Connell Flexi-Stent 7fr 9cm Small Pigtail Flexible .035in Stent 6575 - [id number] Implanted:Qty: 1 on 09/21/2023 by Vimal Woodruff MD at [facility] Explanted:Qty: 1 on 09/23/2023 by Vimal Woodruff MD at [facility] Stent N/A: Pancreas [employer] 03/11/2028 [id number] / / [id number] Description:Not present at b eginning of case. Self migrated out [employer] Gina Wallflex 10mm X 60mm Fully Covered Biliary [id number] - [id number] Implanted:Qty: 1 on 09/21/2023 by Vimal Woodruff MD at [facility] Explanted:Qty: 1 on 09/23/2023 by Vimal Woodruff MD at [facility] Stent N/A: Bile Duct [employer] Gina 08/02/2025 [id number] / / [id number] Procedures Procedure Name Priority Date/Time Associated Diagnosis Comments URINALYSIS, MICROSCOPIC ONLY STAT 06/19/2024 7:06 PM SALES OPERATIONS ANALYST URINALYSIS AND REFLEX TO MICROSCOPIC AND CULTURE STAT 06/19/2024 7:06 PM SALES OPERATIONS ANALYST ECG 12-LEAD STAT 06/19/2024 7:04 PM SALES OPERATIONS ANALYST EGFR STAT 06/19/2024 6:56 PM SALES OPERATIONS ANALYST DIFFERENTIAL AUTO STAT 06/19/2024 6:5 6 PM SALES OPERATIONS ANALYST TROPONIN T HIGH-SENSITIVITY SERIES (BASELINE, 2HR, 4HR, 6HR) STAT 06/19/2024 6:56 PM SALES OPERATIONS ANALYST LIPASE STAT 06/19/2024 6:56 PM SALES OPERATIONS ANALYST COMPREHENSIVE METABOLIC PANEL STAT 06/19/2024 6:56 PM SALES OPERATIONS ANALYST CBC WITH AUTO DIFFERENTIAL STAT 06/19/2024 6:56 PM SALES OPERATIONS ANALYST DRUGS OF ABUSE SCREEN, URINE WITHOUT CONFIRMATION STAT 05/20/2024 7:[address] ANALYST [address] ABDOMEN PELVIS W CONTRAST ED 05/20/2024 5:56 PM SALES OPERATIONS ANALYST SEPSIS LACTATE WITH REFLEX STAT 05/20/2024 5:16 PM SALES OPERATIONS ANALYST EGFR STAT 05/20/2024 4:03 PM SALES OPERATIONS ANALYST DIFFERENTIAL AUTO STAT 05/20/2024 4:0 3 PM SALES OPERATIONS ANALYST LIPASE STAT 05/20/2024 4:03 PM SALES OPERATIONS ANALYST COMPREHENSIVE METABOLIC PANEL STAT 05/20/2024 4:03 PM SALES OPERATIONS ANALYST CBC WITH AUTO DIFFERENTIAL STAT 05/20/2024 4:03 PM SALES OPERATIONS ANALYST URINALYSIS AND REFLEX TO MICROSCOPIC AND CULTURE STAT 05/20/2024 4:03 PM SALES OPERATIONS ANALYST URINALYSIS, MICROSCOPIC ONLY STAT 04/20/2024 4:15 PM SALES OPERATIONS ANALYST URINALYSIS AND REFLEX TO MICROSCOPIC AND CULTURE STAT 04/20/2024 4:15 PM SALES OPERATIONS ANALYST CT ABDOMEN PELVIS W CONTRAST ED 04/20/2024 2:02 PM SALES OPERATIONS ANALYST ECG 12-LEAD STAT 04/20/2024 12:58 PM SALES OPERATIONS ANALYST EGFR STAT 04/20/2024 12:56 PM SALES OPERATIONS ANALYST DIFFERENTIAL AUTO STAT 04/20/2024 12: 56 PM SALES OPERATIONS ANALYST LIPASE STAT 04/20/2024 12:56 PM SALES OPERATIONS ANALYST COMPREHENSIVE METABOLIC PANEL STAT 04/20/2024 12:56 PM SALES OPERATIONS ANALYST CBC WITH AUTO DIFFERENTIAL STAT 04/20/2024 12:56 PM SALES OPERATIONS ANALYST XR SPINE CERVICAL 2 OR 3 VIEWS Schedule Routine, Read Routine (OP Routine) 03/25/2024 11:32 AM SALES OPERATIONS ANALYST Neck pain from Last 3 Months Results * (ABNORMAL) Urinalysis reflex to microscopic and culture Urine (06/19/2024 7:06 PM SALES OPERATIONS ANALYST) Color, ur Yellow Yellow Comment:Testing performed by : [address] [address] Clarity, ur Clear Clear NEEL Comment:Testing performed by : [address] [address] Specific gravity, ur 1.023 1.003 - 1.030 NEEL Comment:Testing performed by : [address] [address] pH, urine 6.0 NEEL Comment: Interpretive Data U rine pH is affected by diet, medications, systemic acid-base disturbances, and renal tubular function. pH may affect urinary stone formation. For example, urine pH below 6.0 may help reduce the tendency for calcium phosphate stones and pH greater than 6.0 may reduce the tendency for uric acid stone formation. Source: [place] Current Interpretive Data was last revised on 2017 Testing performed by: [address] [address] Protein, ur ql Trace(A) Negative NEEL Comment:Testing performed by : [address] [address] Glucose, ur ql Negative Negative NEEL Comment:Testing performed by : [address] [address] Ketones, ur 1+(A) Negative NEEL Comment:Testing performed by : [address] [address] Bilirubin, ur Negative Negative NEEL Comment:Testing performed by : [address] [address] Blood, ur Negative Negative NEEL Comment:Testing performed by : [address] [address] Urobilinogen, ur <2.0 <2.0 mg/dL NEEL Comment:Testing performed by : [address] [address] Nitrite, ur Negative Negative NEEL Comment:Testing performed by : [address] [address] Leukocyte esterase, ur Negative Negative NEEL Comment:Testing performed by : [address] [address] UA reflex comment Reflex to microscopic UA will be performed. NEEL Comment:Testing performed by : [address] [address] Urine 06/19/2024 7:06 PM SALES OPERATIONS ANALYST 06/19/2024 7:11 PM SALES OPERATIONS ANALYST us Terri Fuentes MD LAB MICROBIOLOGY - GENER AL ORDERABLES Final Result Performing Organization Address [facility] Co de Phone Number NEEL [facility] Department [place] [address] * (ABNORMAL) Urinalysis, microscopic only (06/19/2024 7:06 PM SALES OPERATIONS ANALYST) WBC, ur 0-5 0 - 5 /HPF Comment:Testing performed by : [address] [address] RBC, ur 0-2 0 - 2 /HPF NEEL Comment:Testing performed by : [address] [address] Bacteria, ur Trace(A) NEEL Comment:Testing performed by : [address] [address] Mucous, ur Present(A) NEEL Comment:Testing performed by : [address] [address] Culture Reflex Comment Reflex conditions for urine culture (WBC >10) not met. NEEL Comment:Testing performed by : [address] [address] Urine 06/19/2024 7:06 PM SALES OPERATIONS ANALYST 06/19/2024 7:11 PM SALES OPERATIONS ANALYST us Terri Fuentes MD LAB URINE ORDERABLES Fin al Result Performing Organization Address City/[facility] Co de Phone Number NEEL [address] [facility] [place] [address] * ECG 12 lead (06/19/2024 7:04 PM SALES OPERATIONS ANALYST) Ventricular Rate EKG/Min 67 BPM [facility] Atrial Rate 67 BPM [facility] NC-Interval (MSEC) 106 ms [facility] QRS-Interval (MSEC) 102 ms [facility] QT-Interval (MSEC) 410 ms [facility] QTc 433 ms [facility] P Amity 28 degrees [facility] R Amity 37 degrees [facility] T Amity 50 degrees [facility] Diagnosis Sinus rhythm with short NC with sinus arrhythmia Within normal limits When compared with ECG of 20-APR-2024 12:58, No significant change Confirmed by SULTAN DE JESUS M.D. ([id number]) on 06/20/2024 1:51:59 PM [facility] 06/19/2024 7:04 PM SALES OPERATIONS ANALYST 06/20/2024 1:51 PM SALES OPERATIONS ANALYST us Terri Fuentes MD ECG ORDERABLES Final Re sult Performing Organization Address [facility] de Phone Number [facility] * Troponin T high-sensitivity series (baseline, 2hr, 4hr, 6hr) (06/19/2024 6:56 PM SALES OPERATIONS ANALYST) Pathologist [facility] Trop T hs <6 <=22 ng/L Comment: Interpretive Data For further hscTnT resources including the diagnostic algorithm and an aid in interpretation, copy and paste this link: [email or web address] Current Interpretive Data last revised 2020. Testing performed by: [facility], [address] [place] [address]., [address] Blood 06/19/2024 6:56 PM SALES OPERATIONS ANALYST 06/19/2024 7:03 PM SALES OPERATIONS ANALYST us Terri Fuentes MD LAB BLOOD ORDERABLES Fin al Result Performing Organization Address [facility] Co de Phone Number NEEL [address] [facility] [place] [address] * eGFR (06/19/2024 6:56 PM SALES OPERATIONS ANALYST) Pathologist [facility] eGFR >90 >=60 mL/min/1. 73 m2 Comment: [...] was last reviewed 2021. Testing performed by: [address] [address] Blood 06/19/2024 6:56 PM SALES OPERATIONS ANALYST 06/19/2024 7:03 PM SALES OPERATIONS ANALYST us Terri Fuentes MD LAB BLOOD ORDERABLES Fin al Result NEEL [address] [facility] [place] [address] * (ABNORMAL) Differential, auto (06/19/2024 6:56 PM SALES OPERATIONS ANALYST) Pathologist [facility] Neutrophil abs 17.4(H) 1.5 - 6.5 K/cumm Comment:Testing performed by : [address] [address] Imm gran abs 0.1 0.0 - 0.1 K/cumm NEEL SMITH Comment:Testing performed by : [address] [address] Lymphocyte abs 1.2 0.8 - 3.3 K/cumm [facility] Comment:Testing performed by : [facility], [address] [place] [address]., [address] Monocyte abs 1.1(H) 0.2 - 0.8 K/cumm [facility] Comment:Testing performed by : [address], [place]., [address] Eosinophil abs 0.0 0.0 - 0.5 K/cumm [facility] Comment:Testing performed by : [address], [place]., [address] Basophil abs 0.1 0.0 - 0.1 K/cumm [facility] Comment:Testing performed by : [address] [address] Neutrophil pct 87.3 % [facility] Comment: Interpretive Data Percent cell count reference ranges are not reported, since discordance with absolute values may lead to misinterpretation of CBC data. Current Interpretive Data was last revised on 2017. Testing performed by: [address] [address] Imm gran pct 0.7 % [facility] Comment: Interpretive Data Percent cell count reference ranges are not reported, since discordance with absolute values may lead to misinterpretation of CBC data. Current Interpretive Data was last revised on 2017. Testing performed by: [address] [address] Lymphocyte pct 6.2 % [facility] Comment: Interpretive Data Percent cell count reference ranges are not reported, since discordance with absolute values may lead to misinterpretation of CBC data. Current Interpretive Data was last revised on 2017. Testing performed by: [address] [address] Monocyte pct 5.5 % [facility] Comment: Interpretive Data Percent cell count reference ranges are not reported, since discordance with absolute values may lead to misinterpretation of CBC data. Current Interpretive Data was last revised on 2017. Testing performed by: [address] [address] Eosinophil pct 0.0 % [facility] Comment: Interpretive Data Percent cell count reference ranges are not reported, since discordance with absolute values may lead to misinterpretation of CBC data. Current Interpretive Data was last revised on 2017. Testing performed by: [address] [address] Basophil pct 0.3 % NEEL SMITH Comment: Interpretive Data Percent cell count reference ranges are not reported, since discordance with absolute values may lead to misinterpretation of CBC data. Current Interpretive Data was last revised on 2017. Testing performed by: [address] [address] Blood 06/19/2024 6:56 PM SALES OPERATIONS ANALYST 06/19/2024 7:03 PM SALES OPERATIONS ANALYST us Terri Fuentes MD LAB BLOOD ORDERABLES Fin al Result NEEL [facility]0 [facility] [place] [address] * (ABNORMAL) CBC with auto differential (06/19/2024 6:56 PM SALES OPERATIONS ANALYST) WBC 20.0(H) 3.8 - 9.9 K/cumm Comment:Testing performed by : [address] [address] Hgb 13.8 13.0 - 17.5 g/dL NEEL SMITH Comment:Testing performed by : [address] [address] Hct 41.3 38.9 - 50.3 % NEEL SMITH Comment:Testing performed by : [address] [address] Plt 330 150 - 400 K/cumm NEEL SMITH Comment:Testing performed by : [address] [address] MPV 9.8 9.1 - 12.3 fL NEEL SMITH Comment:Testing performed by : [address] [address] RBC 5.02 4.30 - 5.80 M/cumm NEEL SMITH Comment:Testing performed by : [address] [address] MCV 82.3 81.3 - 96.4 fL NEEL SMITH Comment:Testing performed by : [address], [address] MCH 27.5 27.1 - 33.3 pg NEEL SMITH Comment:Testing performed by : [address] [address] MCHC 33.4 32.3 - 35.7 g/dL NEEL SMITH Comment:Testing performed by : [address] [address] RDW CV 15.8(H) 11.1 - 14.9 % NEEL Comment:Testing performed by : [address], [address] RDW SD 46.4 35.7 - 48.1 fL NEEL SMITH Comment:Testing performed by : [address] [address] NRBC abs 0.00 0.00 - 0.01 K/cumm NEEL Comment:Testing performed by : [address], [address] Blood (Blood, Venous) 06/19/2024 6:56 PM SALES OPERATIONS ANALYST 06/19/2024 7:03 PM SALES OPERATIONS ANALYST Terri Fuentes MD LAB BLOOD ORDERABLES Fin al Result Performing Organization Address City/[facility]/ZIP Co de Phone Number [place] [id number] [facility] [place] [address] * Lipase (06/19/2024 6:56 PM SALES OPERATIONS ANALYST) Lipase 90 10 - 99 Units/L Comment:Testing performed by : [address] [address] Blood (Blood, Venous) 06/19/2024 6:56 PM SALES OPERATIONS ANALYST 06/19/2024 7:03 PM SALES OPERATIONS ANALYST Terri Fuentes MD LAB BLOOD ORDERABLES Fin al Result NEEL [address] [facility] [place] [address] * Comprehensive metabolic panel (06/19/2024 6:56 PM SALES OPERATIONS ANALYST) Sodium 142 135 - 145 mmol/L Comment:Testing performed by : [facility], [address] [place] [address]., [address] Potassium, pl 4.2 3.3 - 4.9 mmol/L NEEL Comment:Testing performed by : [address], [place]., [address] Chloride 106 97 - 110 mmol/L NEEL Comment:Testing performed by : [address] [address] CO2 22 22 - 32 mmol/L NEEL Comment:Testing performed by : [address], [place]., [address] Anion gap 14 2 - 15 mmol/L NEEL Comment:Testing performed by : [address] [address] BUN 15 6 - 25 mg/dL NEEL Comment:Testing performed by : [address], [place]., [address] Creatinine 0.97 0.80 - 1.30 mg/dL NEEL Comment:Testing performed by : [address] [address] Glucose 144 70 - 199 mg/dL NEEL [...] was last revised 2022. Testing performed by: [address] [address] Calcium 9.9 8.5 - 10.3 mg/dL NEEL Comment:Testing performed by : [address] [address] Bilirubin, total 0.4 0.1 - 1.2 mg/dL NEEL Comment:Testing performed by : [address] [address] Protein, pl 7.4 6.5 - 8.5 g/dL NEEL Comment:Testing performed by : [address], [place]., [address] Albumin 4.5 3.5 - 5.0 g/dL NEEL Comment:Testing performed by : [address], [place]., [address] Alk phos 92 40 - 130 Units/L NEEL Comment:Testing performed by : [address] [address] ALT 26 7 - 55 Units/L NEEL Comment:Testing performed by : [address] [address] AST 25 10 - 50 Units/L [facility] Comment:Testing performed by : [address], [place]., [address] Blood 06/19/2024 6:56 PM SALES OPERATIONS ANALYST 06/19/2024 7:03 PM SALES OPERATIONS ANALYST us Terri Fuentes MD LAB BLOOD ORDERABLES Fin al Result [facility] [address] [facility] [place] [address] * (ABNORMAL) Drugs of Abuse Screen, Urine without Confirmation (05/20/2024 7:37 PM SALES OPERATIONS ANALYST) Pathologist [facility] Amphetamine, ur Not Detected CutOff 500ng/mL Comment: [...] Screen Positive, presumptive (A) CutOff 50 ng/mL [facility] Comment: Interpretive Data - Cannabinoids: Samples containing greater than 50 ng/mL delta-9 THC -COOH or other cross- reacting compounds are reported as positive. False positive and false negative results are possible. Confirmatory testing required for definitive results. Current Interpretive Data was last reviewed 2022. Cocaine, ur Not Detected CutOff 150ng/mL [facility] Comment: Interpretive Data - Cocaine: Samples containing greater than 150 ng/mL benzoylecgonine or other cross- reacting compounds are reported as positive. False positive and false negative results are possible. Confirmatory testing required for definitive results. Current Interpretive Data was last reviewed 2022. Fentanyl, Ur Not Detected CutOff 5 ng/mL [facility] Comment: Interpretive Data - Fentanyl: Samples containing [...] revised on 2017. Urine 05/20/2024 7:37 PM SALES OPERATIONS ANALYST 05/20/2024 7:40 PM SALES OPERATIONS ANALYST Narrative [facility] - 05/20/2024 8:04 PM SALES OPERATIONS ANALYST Drug of Abuse screening is performed by immunoassay for medical purposes only. This is not to be used for Pain Management purposes. Kelly LAWTON LAB URINE ORDERABLES F inal Result Performing Organization Address City/State/[facility] Co de Phone Number [facility] [address] [facility] [place] [address] * CT Abdomen Pelvis W Contrast (05/20/2024 5:56 PM SALES OPERATIONS ANALYST) Anatomical Region Laterality Modality Body N/A Computed Tomogra phy 05/20/2024 6:54 PM SALES OPERATIONS ANALYST Narrative 05/20/2024 7:00 PM SALES OPERATIONS ANALYST EXAM DESCRIPTION: CT ABDOMEN PELVIS W CONTRAST REASON FOR STUDY: Abdominal pain, acute, nonlocalized Pt c/o abdominal pain [id number] with NV. Hx: cholecystectomy TECHNIQUE: CT scan [...] Francisco Jesus M.D. KT T: Report ID: [id number] Reading Location: [place] [address] Procedure Note Jose Francisco Jesus MD - 05/20/2024 EXAM DESCRIPTION: CT ABDOMEN PELVIS W CONTRAST REASON FOR STUDY: Abdominal pain, acute, nonlocalized Pt c/o abdominal pain [id number] with NV. Hx: cholecystectomy TECHNIQUE: CT scan [...] Francisco Jesus M.D. KT T: Report ID: [id number] Reading Location: [place] [address] PROCEDURES Renee l Result * Sepsis Lactate w/ Reflex (05/20/2024 5:16 PM SALES OPERATIONS ANALYST) [facility] Sepsis Lactate 1.5 0.7 - 2.0 mmol/L Blood 05/20/2024 5:16 PM SALES OPERATIONS ANALYST 05/20/2024 5:18 PM SALES OPERATIONS ANALYST Kelly LAWTON LAB BLOOD ORDERABLES F inal Result NEEL [address] [facility] Department [place] [address] * eGFR (05/20/2024 4:03 PM SALES OPERATIONS ANALYST) [facility] eGFR >90 >=60 mL/min/1. 73 m2 Comment: [...] last reviewed 2021. Blood 05/20/2024 4:03 PM SALES OPERATIONS ANALYST 05/20/2024 4:07 PM SALES OPERATIONS ANALYST us Freddy Bell MD LAB BLOOD ORDERABLES Final Result [place] [address] [facility] [place] [address] * (ABNORMAL) Differential, auto (05/20/2024 4:03 PM SALES OPERATIONS ANALYST) Neutrophil abs 15.0(H) 1.5 - 6.5 K/cumm Imm gran abs 0.1 0.0 - 0.1 K/cumm [facility] Lymphocyte abs 3.1 0.8 - 3.3 K/cumm [facility] Monocyte abs 1.6(H) 0.2 - 0.8 K/cumm [facility] Eosinophil abs 0.2 0.0 - 0.5 K/cumm [facility] Basophil abs 0.1 0.0 - 0.1 K/cumm [facility] Neutrophil pct 74.9 % [facility] Comment: Interpretive Data Percent cell count reference ranges are not reported, since discordance with absolute values may lead to misinterpretation of CBC data. Current Interpretive Data was last revised on 2017. Imm gran pct 0.5 % [facility] Comment: Interpretive Data Percent cell count reference ranges are not reported, since discordance with absolute values may lead to misinterpretation of CBC data. Current Interpretive Data was last revised on 2017. Lymphocyte pct 15.3 % [facility] Comment: Interpretive Data Percent cell count reference ranges are not reported, since discordance with absolute values may lead to misinterpretation of CBC data. Current Interpretive Data was last revised on 2017. Monocyte pct 7.8 % [facility] Comment: Interpretive Data Percent cell count reference ranges are not reported, since discordance with absolute values may lead to misinterpretation of CBC data. Current Interpretive Data was last revised on 2017. Eosinophil pct 1.1 % [facility] Comment: Interpretive Data Percent cell count reference ranges are not reported, since discordance with absolute values may lead to misinterpretation of CBC data. Current Interpretive Data was last revised on 2017. Basophil pct 0.4 % [facility] Comment: Interpretive Data Percent cell count reference ranges are not reported, since discordance with absolute values may lead to misinterpretation of CBC data. Current Interpretive Data was last revised on 2017. Blood 05/20/2024 4:03 PM SALES OPERATIONS ANALYST 05/20/2024 4:07 PM SALES OPERATIONS ANALYST us Freddy Bell MD LAB BLOOD ORDERABLES Final Result [facility] [address] [facility] [place] [address] * (ABNORMAL) Urinalysis reflex to microscopic and culture Urine (05/20/2024 4:03 PM SALES OPERATIONS ANALYST) Color, ur Yellow Yellow Clarity, ur Cloudy(A) Clear [facility] Specific gravity, ur 1.021 1.003 - 1.030 [facility] pH, urine 6.5 [facility] Comment: Interpretive Data U rine pH is affected by diet, medications, systemic acid-base disturbances, and renal tubular function. pH may affect urinary stone formation. For example, urine pH below 6.0 may help reduce the tendency for calcium phosphate stones and pH greater than 6.0 may reduce the tendency for uric acid stone formation. Source: [facility] Current Interpretive Data was last revised on 2017 Protein, ur ql Negative Negative [facility] Glucose, ur ql Negative Negative [facility] Ketones, ur Negative Negative [facility] Bilirubin, ur Negative Negative [facility] Blood, ur Negative Negative [facility] Urobilinogen, ur <2.0 <2.0 mg/dL [facility] Nitrite, ur Negative Negative [facility] Leukocyte esterase, ur Negative Negative [facility] UA reflex comment Reflex conditions for microscopic UA and culture not met. [facility] Urine 05/20/2024 4:03 PM SALES OPERATIONS ANALYST 05/20/2024 4:07 PM SALES OPERATIONS ANALYST Freddy Bell MD LAB MICROBIOLOGY - GENERAL ORDERABLES Final Result Performing Organization Address [facility] Co de Phone Number NEEL [address] [place] [address] * (ABNORMAL) CBC with auto differential (05/20/2024 4:03 PM SALES OPERATIONS ANALYST) WBC 20.1(H) 3.8 - 9.9 K/cumm Hgb 14.2 13.0 - 17.5 g/dL [facility] Hct 43.4 38.9 - 50.3 % [facility] Plt 327 150 - 400 K/cumm [facility] MPV 9.9 9.1 - 12.3 fL [facility] RBC 5.20 4.30 - 5.80 M/cumm [facility] MCV 83.5 81.3 - 96.4 fL [facility] MCH 27.3 27.1 - 33.3 pg [facility] MCHC 32.7 32.3 - 35.7 g/dL [facility] RDW CV 15.9(H) 11.1 - 14.9 % [facility] RDW SD 47.5 35.7 - 48.1 fL [facility] NRBC abs 0.00 0.00 - 0.01 K/cumm [facility] Blood (Blood, Venous) 05/20/2024 4:03 PM SALES OPERATIONS ANALYST 05/20/2024 4:07 PM SALES OPERATIONS ANALYST Freddy Bell MD LAB BLOOD ORDERABLES Final Result Performing Organization Address [facility]/ZIP Co de Phone Number NEEL [address] [place] [address] * Lipase (05/20/2024 4:03 PM SALES OPERATIONS ANALYST) Lipase 34 10 - 99 Units/L Blood (Blood, Venous) 05/20/2024 4:03 PM SALES OPERATIONS ANALYST 05/20/2024 4:07 PM SALES OPERATIONS ANALYST Freddy Bell MD LAB BLOOD ORDERABLES Final Result [facility] [address] [facility] [place] [address] * Comprehensive metabolic panel (05/20/2024 4:03 PM SALES OPERATIONS ANALYST) [facility] Sodium 142 135 - 145 mmol/L Potassium, pl 3.6 3.3 - 4.9 mmol/L [facility] Chloride 105 97 - 110 mmol/L [facility] CO2 24 22 - 32 mmol/L [facility] Anion gap 13 2 - 15 mmol/L [facility] BUN 12 6 - 25 mg/dL [facility] Creatinine 1.00 0.80 - 1.30 mg/dL [facility] Glucose 101 70 - 199 mg/dL [facility] Comment: Interpretive Data Fasting glucose >/= [...] 2022. Calcium 10.1 8.5 - 10.3 mg/dL [facility] Bilirubin, total 0.3 0.1 - 1.2 mg/dL [facility] Protein, pl 7.3 6.5 - 8.5 g/dL [facility] Albumin 4.5 3.5 - 5.0 g/dL [facility] Alk phos 97 40 - 130 Units/L [facility] ALT 22 7 - 55 Units/L [facility] AST 24 10 - 50 Units/L [facility] Blood 05/20/2024 4:03 PM SALES OPERATIONS ANALYST 05/20/2024 4:07 PM SALES OPERATIONS ANALYST us Freddy Bell MD LAB BLOOD ORDERABLES Final Result NEEL SMITH [address] [facility] [place] [address] * (ABNORMAL) Urinalysis reflex to microscopic and culture Urine (04/20/2024 4:15 PM SALES OPERATIONS ANALYST) Color, ur Yellow Yellow Comment:Testing performed by : [address] [address] Clarity, ur Clear Clear NEEL Comment:Testing performed by : [address] [address] Specific gravity, ur >1.050(A) 1.003 - 1.030 NEEL Comment:Testing performed by : [address] [address] pH, urine 8.5 NEEL Comment: Interpretive Data U rine pH is affected by diet, medications, systemic acid-base disturbances, and renal tubular function. pH may affect urinary stone formation. For example, urine pH below 6.0 may help reduce the tendency for calcium phosphate stones and pH greater than 6.0 may reduce the tendency for uric acid stone formation. Source: [facility] [place] Current Interpretive Data was last revised on 2017 Testing performed by: [address] [address] Protein, ur ql 1+(A) Negative NEEL Comment:Testing performed by : [address] [address] Glucose, ur ql Negative Negative NEEL Comment:Testing performed by : [address] [address] Ketones, ur 2+(A) Negative NEEL Comment:Testing performed by : [address] [address] Bilirubin, ur Negative Negative NEEL Comment:Testing performed by : [address] [address] Blood, ur Negative Negative NEEL Comment:Testing performed by : [address] [address] Urobilinogen, ur <2.0 <2.0 mg/dL NEEL SMITH Comment:Testing performed by : [address] [address] Nitrite, ur Negative Negative NEEL Comment:Testing performed by : [address] [address] Leukocyte esterase, ur Negative Negative NEEL Comment:Testing performed by : [address] [address] UA reflex comment Reflex to microscopic UA will be performed. NEEL Comment:Testing performed by : [address] [address] Urine 04/20/2024 4:15 PM SALES OPERATIONS ANALYST 04/20/2024 4:47 PM SALES OPERATIONS ANALYST Blue Warren MD LAB MICROBIOLOGY - GENERAL ORDERABLES Final Result NEEL [address] [facility] Department of Laboratories [place], [place] [id number] * (ABNORMAL) Urinalysis, microscopic only (04/20/2024 4:15 PM SALES OPERATIONS ANALYST) WBC, ur 0-5 0 - 5 /HPF Comment:Testing performed by : [address] [address] RBC, ur 3-5(A) 0 - 2 /HPF NEEL Comment:Testing performed by : [address] [address] Culture Reflex Comment Reflex conditions for urine culture (WBC >10) not met. NEEL Comment:Testing performed by : [address] [address] Urine 04/20/2024 4:15 PM SALES OPERATIONS ANALYST 04/20/2024 4:47 PM SALES OPERATIONS ANALYST Blue Warren MD LAB URINE ORDERABLE S Final Result NEEL [address] [facility] [place] [address] * CT Abdomen Pelvis W Contrast (04/20/2024 2:02 PM SALES OPERATIONS ANALYST) Anatomical Region Laterality Modality Body N/A Computed Tomogra phy 04/20/2024 2:35 PM SALES OPERATIONS ANALYST Narrative 04/20/2024 2:48 PM SALES OPERATIONS ANALYST EXAM DESCRIPTION: CT ABDOMEN PELVIS W CONTRAST [...] Esa Cao M.D. AG: GONZALES Report ID: [id number] Reading Location: [id number] Procedure Note Esa Cao MD - 04/20/2024 [...] Esa Cao M.D. AG: AG Report ID: [id number] Reading Location: [place] [address] PROCEDURES Final Re sult * ECG 12 lead (04/20/2024 12:58 PM SALES OPERATIONS ANALYST) Pathologist [facility] Ventricular Rate EKG/Min 62 BPM [facility] Atrial Rate 62 BPM [facility] NC-Interval (MSEC) 84 ms [facility] QRS-Interval (MSEC) 94 ms [facility] QT-Interval (MSEC) 402 ms [facility] QTc 408 ms [facility] P Amity 5 degrees [facility] R Amity 37 degrees [facility] T Amity 41 degrees [facility] Diagnosis Sinus rhythm with short NC Otherwise normal ECG When compared with ECG of 21-FEB-2024 06:26, No significant change was found Confirmed by DARIEL CARLOS M.D. ([id number]) on 04/24/2024 7:39:01 PM [facility] 04/20/2024 12:5 8 PM SALES OPERATIONS ANALYST 04/24/2024 7:39 PM SALES OPERATIONS ANALYST Blue Warren MD ECG ORDERABLES Fin al Result [facility] * eGFR (04/20/2024 12:56 PM SALES OPERATIONS ANALYST) Pathologist [facility] eGFR >90 >=60 mL/min/1. 73 m2 Comment: [...] was last reviewed 2021. Testing performed by: [address] [address] Blood 04/20/2024 12:5 6 PM SALES OPERATIONS ANALYST 04/20/2024 1:00 PM SALES OPERATIONS ANALYST us Blue Warren MD LAB BLOOD ORDERABLE S Final Result NEEL [address] [facility] [place] [address] * (ABNORMAL) Differential, auto (04/20/2024 12:56 PM SALES OPERATIONS ANALYST) Neutrophil abs 13.1(H) 1.5 - 6.5 K/cumm Comment:Testing performed by : [address] [address] Imm gran abs 0.1 0.0 - 0.1 K/cumm NEEL Comment:Testing performed by : [address] [address] Lymphocyte abs 1.2 0.8 - 3.3 K/cumm NEEL Comment:Testing performed by : [address] [address] Monocyte abs 1.2(H) 0.2 - 0.8 K/cumm NEEL Comment:Testing performed by : [address] [address] Eosinophil abs 0.1 0.0 - 0.5 K/cumm [facility] Comment:Testing performed by : [address] [address] Basophil abs 0.1 0.0 - 0.1 K/cumm [facility] Comment:Testing performed by : [address] [address] Neutrophil pct 83.8 % [facility] Comment: Interpretive Data Percent cell count reference ranges are not reported, since discordance with absolute values may lead to misinterpretation of CBC data. Current Interpretive Data was last revised on 2017. Testing performed by: [address] [address] Imm gran pct 0.3 % [facility] Comment: Interpretive Data Percent cell count reference ranges are not reported, since discordance with absolute values may lead to misinterpretation of CBC data. Current Interpretive Data was last revised on 2017. Testing performed by: [address] [address] Lymphocyte pct 7.8 % [facility] Comment: Interpretive Data Percent cell count reference ranges are not reported, since discordance with absolute values may lead to misinterpretation of CBC data. Current Interpretive Data was last revised on 2017. Testing performed by: [address] [address] Monocyte pct 7.4 % [facility] Comment: Interpretive Data Percent cell count reference ranges are not reported, since discordance with absolute values may lead to misinterpretation of CBC data. Current Interpretive Data was last revised on 2017. Testing performed by: [address] [address] Eosinophil pct 0.4 % [facility] Comment: Interpretive Data Percent cell count reference ranges are not reported, since discordance with absolute values may lead to misinterpretation of CBC data. Current Interpretive Data was last revised on 2017. Testing performed by: [address] [address] Basophil pct 0.3 % [facility] Comment: Interpretive Data Percent cell count reference ranges are not reported, since discordance with absolute values may lead to misinterpretation of CBC data. Current Interpretive Data was last revised on 2017. Testing performed by: [address] [address] Blood 04/20/2024 12:5 6 PM SALES OPERATIONS ANALYST 04/20/2024 1:00 PM SALES OPERATIONS ANALYST us Blue Warren MD LAB BLOOD ORDERABLE S Final Result NEEL [address] [facility] [place] [address] * (ABNORMAL) CBC with auto differential (04/20/2024 12:56 PM SALES OPERATIONS ANALYST) WBC 15.7(H) 3.8 - 9.9 K/cumm Comment:Testing performed by : [address] [address] Hgb 13.8 13.0 - 17.5 g/dL NEEL Comment:Testing performed by : [address] [address] Hct 41.6 38.9 - 50.3 % NEEL Comment:Testing performed by : [address] [address] Plt 337 150 - 400 K/cumm NEEL Comment:Testing performed by : [address] [address] MPV 9.6 9.1 - 12.3 fL NEEL Comment:Testing performed by : [address] [address] RBC 5.09 4.30 - 5.80 M/cumm NEEL Comment:Testing performed by : [address] [address] MCV 81.7 81.3 - 96.4 fL NEEL Comment:Testing performed by : [address] [address] MCH 27.1 27.1 - 33.3 pg NEEL SMITH Comment:Testing performed by : [address] [address] MCHC 33.2 32.3 - 35.7 g/dL NEEL SMITH Comment:Testing performed by : [address] [address] RDW CV 15.9(H) 11.1 - 14.9 % NEEL SMITH Comment:Testing performed by : [address] [address] RDW SD 47.5 35.7 - 48.1 fL NEEL SMITH Comment:Testing performed by : [address] [address] NRBC abs 0.00 0.00 - 0.01 K/cumm NEEL Comment:Testing performed by : [address], [address] Blood (Blood, Venous) 04/20/2024 12:56 PM SALES OPERATIONS ANALYST 04/20/2024 1:00 PM SALES OPERATIONS ANALYST Blue Warren MD LAB BLOOD ORDERABLE S Final Result Performing Organization Address [facility] Co de Phone Number [address] [place] [address] * Lipase (04/20/2024 12:56 PM SALES OPERATIONS ANALYST) Pathologist [facility] Lipase 23 10 - 99 Units/L Comment:Testing performed by : [address], [address] Blood (Blood, Venous) 04/20/2024 12:56 PM SALES OPERATIONS ANALYST 04/20/2024 1:00 PM SALES OPERATIONS ANALYST Blue Warren MD LAB BLOOD ORDERABLE S Final Result Performing Organization Address City/[facility] de Phone Number [address] [place] [address] * Comprehensive metabolic panel (04/20/2024 12:56 PM SALES OPERATIONS ANALYST) Sodium 142 135 - 145 mmol/L Comment:Testing performed by : [address] [address] Potassium, pl 4.2 3.3 - 4.9 mmol/L [facility] Comment:Testing performed by : [address], [place]., [address] Chloride 105 97 - 110 mmol/L NEEL Comment:Testing performed by : [address], [place]., [address] CO2 24 22 - 32 mmol/L [facility] Comment:Testing performed by : [address] [address] Anion gap 13 2 - 15 mmol/L [facility] Comment:Testing performed by : [address], [place]., [address] BUN 8 6 - 25 mg/dL [facility] Comment:Testing performed by : [address], [place]., [address] Creatinine 1.00 0.80 - 1.30 mg/dL [facility] Comment:Testing performed by : [address] [address] Glucose 145 70 - 199 mg/dL [facility] Comment: Interpretive Data Fasting glucose >/= [...] was last revised 2022. Testing performed by: [address] [address] Calcium 10.1 8.5 - 10.3 mg/dL [facility] Comment:Testing performed by : [address] [address] Bilirubin, total 0.5 0.1 - 1.2 mg/dL [facility] Comment:Testing performed by : [address] [address] Protein, pl 7.4 6.5 - 8.5 g/dL NEEL Comment:Testing performed by : [address] [address] Albumin 4.6 3.5 - 5.0 g/dL NEEL Comment:Testing performed by : [address] [address] Alk phos 106 40 - 130 Units/L NEEL Comment:Testing performed by : [address] [address] ALT 15 7 - 55 Units/L NEEL Comment:Testing performed by : [address] [address] AST 17 10 - 50 Units/L NEEL Comment:Testing performed by : [address] [address] Blood 04/20/2024 12:5 6 PM SALES OPERATIONS ANALYST 04/20/2024 1:00 PM SALES OPERATIONS ANALYST Blue Warren MD LAB BLOOD ORDERABLE S Final Result NEEL [address] [facility] of [facility] [place], [place] [id number] * XR Spine Cervical 2 or 3 Views (03/25/2024 11:32 AM SALES OPERATIONS ANALYST) Anatomical Region Laterality Modality Spine N/A Computed Radiogr aphy 03/29/2024 11:2 1 AM SALES OPERATIONS ANALYST Narrative 03/29/2024 11:24 AM SALES OPERATIONS ANALYST EXAM DESCRIPTION: XR SPINE CERVICAL 2 OR [...] Calvin Linn M.D. MF: MK Report ID: [id number] Reading Location: [id number] Procedure Note Calvin Linn MD - 03/29/2024 [...] 11:24 AM - Electronically signed by Calvin Lnin M.D. MF: MK Report ID: [id number] Reading Location: [id number] Td Lopez MD IMG XR PROCEDURES Final Result from Last 3 Months Insurance [facility] Advance Directives For more information, please contact: [phone] * Full Code (Latest Code Status on [...] 11:23 AM 02/10/2022 10:36 PM Care Teams Group Program Manager Relationship Specialty Start Date End Date Td Lopez MD [address] [facility] [address] [place] [address] PCP - General Family Medicine 11/09/20 Angie Woodard MD [address] [facility] [address] [place] [address] Consulting Physician Gastroenterology 07/17/21 Vimal Woodruff MD [address] [facility] [address] [place] [address] Consulting Physician Gastroenterology 02/10/22
--- OUTSIDE RECORDS SUMMARY | 2024-06-21 22:24 | XMS_ITS | Encounter Summary ---
Author Organization [facility] Address [address] [place] [address] Care Team Providers Care Solar Field Service Technician Name Role Phone Td Lopez MD Primary Care Provider + Angie Woodard MD Unavailable [phone] Vimal Woodruff MD Unavailable Reason for Visit * Reason Comments Abdominal Pain Vomiting Encounter Details Date Type Department Care Team (Late st Contact Info) Description 06/19/2024 7:49 PM PENOLOGY TEACHER - 06/19/2024 11:01 PM [facility] Emergency [facility] Emergency Department [address] [place] [id number] Terri Fuentes MD [address] [place] [address] [place] [address] Chronic abdominal pain (Primary Dx); Nausea and vomiting, unspecified vomiting type; Leukocytosis, unspecified type Discharge Disposition: Discharge to home or self care Social History Tobacco Use Types Packs/Day Years Used Date Smoking Tobacco: Every Day Cigarettes Smokeless Tobacco: Never Alcohol Use Standard Drinks/Week Comments Not Currently 0 (1 standard drink = 0.6 oz pur e alcohol) [facility] Utilities Answer Date Recorded In the [...] often do you attend chur ch or gnosticism services? Never 09/21/2023 Do you belong to any clubs o r organizations such as hinduism groups, unions, fraternal or athletic groups, or [...] place to sleep or slept in a longterm (including now)? No 09/21/2023 Personal Safety Answer Date Recorded Have you ever been in or are you currently in a harmful physical or emotional relationship or is someone making you feel afraid or unsafe? Denies 06/19/2024 Sex and Gender Information Value Date Recorded Sex Assigned at Not on file Legal Sex Male 3:38 AM PENOLOGY TEACHER Gender Identity Not on file Sexual Orientation Not on file documented as of this encounter Last Filed Vital Signs Vital Sign Reading Time Taken Comments Blood Pressure 137/99 06/19/2024 10:30 PM PENOLOGY TEACHER Pulse 93 06/19/2024 10:30 PM PENOLOGY TEACHER Temperature 36.7 C (98.1 F) 06/19/2024 6:48 PM PENOLOGY TEACHER Respiratory Rate 23 06/19/2024 10:30 PM PENOLOGY TEACHER Oxygen Saturation 97% 06/19/2024 10:30 PM PENOLOGY TEACHER Inhaled Oxygen Concentration - - Weight 74.5 kg (164 lb 3.9 oz) 06/19/2024 6:48 P M PENOLOGY TEACHER Height 177.8 cm (5' 10 ) 06/19/2024 6:48 PM PENOLOGY TEACHER Body Mass Index 23.57 06/19/2024 6:48 PM PENOLOGY TEACHER documented in this encounter Discharge Instructions * Attachments The following attachments cannot be sent through Care Everywhere. * Chronic Abdominal Pain (AfterCare(R) Instructions(ER/ED)) ([place]) * Acute Nausea and Vomiting (Discharge Care) ([place]) documented in this encounter Medications at Time [...] with voice recognition software. Occasional wrong-word or '[id number]' substitutions may have occurred due to the [...] by myself in the absence of a trial lawyer) Nothing acute, short TN interval. Normal QTC. Procedures Chart/outside records review [...] been completed with a voice recognition program. Tank Crewmember errors occur. Please contact me for any clarification.) Terri Fuentes MD 06/20/24 0148 LOGY TEACHER * Carly Espinoza RN - 06/19/2024 6:46 PM CST Sudden onset mid and upper abd pain with N/V onset at 1500. Hx pancreatitis. Emesis x8 without diarrhea LOGY TEACHER documented in this encounter Miscellaneous Notes * ED Procedure Note - Terri Fuentes MD - 06/19/2024 7:22 PM PENOLOGY TEACHER Associated Order(s): ECG 12 lead Procedure ECG 12 lead Date/Time: 06/19/2024 7:22 PM Performed by: Terri Fuentes MD Authorized by: Kelly Krause PA Comments: Sinus rhythm with a normal rate of 67, TN interval calculated to be short. Narrow QRS, normal QTC, normal ST segments and T-waves. Compared to previous April 20, 2024: No change. Terri Fuentes MD 06/19/24 192 LOGY TEACHER documented in this encounter Plan of Treatment Not on file documented as of this encounter Procedures Procedure Name Priority Date/Time Associated Diagnosis Comments URINALYSIS AND REFLEX TO MICROSCOPIC AND CULTURE STAT 06/19/2024 7:06 PM PENOLOGY TEACHER URINALYSIS, MICROSCOPIC ONLY STAT 06/19/2024 7:06 PM PENOLOGY TEACHER ECG 12-LEAD STAT 06/19/2024 7:04 PM PENOLOGY TEACHER TROPONIN T HIGH-SENSITIVITY SERIES (BASELINE, 2HR, 4HR, 6HR) STAT 06/19/2024 6:56 PM PENOLOGY TEACHER EGFR STAT 06/19/2024 6:56 PM PENOLOGY TEACHER DIFFERENTIAL AUTO STAT 06/19/2024 6:5 6 PM PENOLOGY TEACHER CBC WITH AUTO DIFFERENTIAL STAT 06/19/2024 6:56 PM PENOLOGY TEACHER LIPASE STAT 06/19/2024 6:56 PM PENOLOGY TEACHER COMPREHENSIVE METABOLIC PANEL STAT 06/19/2024 6:56 PM PENOLOGY TEACHER documented in this encounter Results * (ABNORMAL) Urinalysis, microscopic only (06/19/2024 7:06 PM PENOLOGY TEACHER) WBC, ur 0-5 0 - 5 /HPF Comment:Testing performed by : [address] [address] RBC, ur 0-2 0 - 2 /HPF NEEL Comment:Testing performed by : [address], [place]., [address] Bacteria, ur Trace(A) NEEL Comment:Testing performed by : [address], [place]., [address] Mucous, ur Present(A) NEEL Comment:Testing performed by : [address], [place]., [address] Culture Reflex Comment Reflex conditions for urine culture (WBC >10) not met. NEEL Comment:Testing performed by : [address], [place]., [address] Urine 06/19/2024 7:06 PM PENOLOGY TEACHER 06/19/2024 7:11 PM PENOLOGY TEACHER us Terri Fuentes MD LAB URINE ORDERABLES Fin al Result [facility] [address] [facility] Department of Laboratories [place], [place] [id number] * (ABNORMAL) Urinalysis reflex to microscopic and culture Urine (06/19/2024 7:06 PM PENOLOGY TEACHER) Color, ur Yellow Yellow Comment:Testing performed by : [address] [address] Clarity, ur Clear Clear NEEL Comment:Testing performed by : [address] [address] Specific gravity, ur 1.023 1.003 - 1.030 NEEL Comment:Testing performed by : [address] [address] pH, urine 6.0 NEEL Comment: Interpretive Data U rine pH is affected by diet, medications, systemic acid-base disturbances, and renal tubular function. pH may affect urinary stone formation. For example, urine pH below 6.0 may help reduce the tendency for calcium phosphate stones and pH greater than 6.0 may reduce the tendency for uric acid stone formation. Source: [facility] Current Interpretive Data was last revised on 2017 Testing performed by: [facility], [address] [place] [address]., [address] Protein, ur ql Trace(A) Negative NEEL Comment:Testing performed by : [facility], [address] [place] [address], [place]., [address] Glucose, ur ql Negative Negative NEEL Comment:Testing performed by : [address] [address] Ketones, ur 1+(A) Negative NEEL Comment:Testing performed by : [address], [place]., [address] Bilirubin, ur Negative Negative NEEL Comment:Testing performed by : [address], [place]., [address] Blood, ur Negative Negative NEEL Comment:Testing performed by : [address], [place]., [address] Urobilinogen, ur <2.0 <2.0 mg/dL NEEL Comment:Testing performed by : [address], [place]., [address] Nitrite, ur Negative Negative NEEL Comment:Testing performed by : [address] [address] Leukocyte esterase, ur Negative Negative NEEL Comment:Testing performed by : [address] [address] UA reflex comment Reflex to microscopic UA will be performed. NEEL Comment:Testing performed by : [address] [address] Urine 06/19/2024 7:06 PM PENOLOGY TEACHER 06/19/2024 7:11 PM PENOLOGY TEACHER us Terri Fuentes MD LAB MICROBIOLOGY - GENER AL ORDERABLES Final Result NEEL SMITH [address] [facility] Department of Laboratories [place], [place] [id number] * ECG 12 lead (06/19/2024 7:04 PM PENOLOGY TEACHER) Ventricular Rate EKG/Min 67 BPM [facility] Atrial Rate 67 BPM [facility] TN-Interval (MSEC) 106 ms [facility] QRS-Interval (MSEC) 102 ms [facility] QT-Interval (MSEC) 410 ms [facility] QTc 433 ms [facility] P [place]ri[place] 28 degrees [facility] R [place] 37 degrees [facility] T [place] 50 degrees [facility] Diagnosis Sinus rhythm with short TN with sinus arrhythmia Within normal limits When compared with ECG of 20-APR-2024 12:58, No significant change Confirmed by SULTAN DE JESUS M.D. ([id number]) on 06/20/2024 1:51:59 PM [facility] 06/19/2024 7:04 PM PENOLOGY TEACHER 06/20/2024 1:51 PM PENOLOGY TEACHER us Terri Fuentes MD ECG ORDERABLES Final Re torrie [facility] * eGFR (06/19/2024 6:56 PM PENOLOGY TEACHER) eGFR >90 >=60 mL/min/1. 73 m2 Comment: [...] was last reviewed 2021. Testing performed by: [facility], [address] [place] [address]., [address] Blood 06/19/2024 6:56 PM PENOLOGY TEACHER 06/19/2024 7:03 PM PENOLOGY TEACHER us Terri Fuentes MD LAB BLOOD ORDERABLES Fin al Result NEEL [address] [facility] Department [place] [address] * (ABNORMAL) Differential, auto (06/19/2024 6:56 PM PENOLOGY TEACHER) Neutrophil abs 17.4(H) 1.5 - 6.5 K/cumm Comment:Testing performed by : [address] [address] Imm gran abs 0.1 0.0 - 0.1 K/cumm NEEL Comment:Testing performed by : [address] [address] Lymphocyte abs 1.2 0.8 - 3.3 K/cumm NEEL Comment:Testing performed by : [address] [address] Monocyte abs 1.1(H) 0.2 - 0.8 K/cumm NEEL Comment:Testing performed by : [address] [address] Eosinophil abs 0.0 0.0 - 0.5 K/cumm NEEL Comment:Testing performed by : [address] [address] Basophil abs 0.1 0.0 - 0.1 K/cumm NEEL Comment:Testing performed by : [address] [address] Neutrophil pct 87.3 % NEEL Comment: Interpretive Data Percent cell count reference ranges are not reported, since discordance with absolute values may lead to misinterpretation of CBC data. Current Interpretive Data was last revised on 2017. Testing performed by: [address] [address] Imm gran pct 0.7 % NEEL Comment: Interpretive Data Percent cell count reference ranges are not reported, since discordance with absolute values may lead to misinterpretation of CBC data. Current Interpretive Data was last revised on 2017. Testing performed by: [address] [address] Lymphocyte pct 6.2 % [facility] Comment: Interpretive Data Percent cell count reference ranges are not reported, since discordance with absolute values may lead to misinterpretation of CBC data. Current Interpretive Data was last revised on 2017. Testing performed by: [address] [address] Monocyte pct 5.5 % [facility] Comment: Interpretive Data Percent cell count reference ranges are not reported, since discordance with absolute values may lead to misinterpretation of CBC data. Current Interpretive Data was last revised on 2017. Testing performed by: [address] [address] Eosinophil pct 0.0 % [facility] Comment: Interpretive Data Percent cell count reference ranges are not reported, since discordance with absolute values may lead to misinterpretation of CBC data. Current Interpretive Data was last revised on 2017. Testing performed by: [address] [address] Basophil pct 0.3 % [facility] Comment: Interpretive Data Percent cell count reference ranges are not reported, since discordance with absolute values may lead to misinterpretation of CBC data. Current Interpretive Data was last revised on 2017. Testing performed by: [address] [address] Blood 06/19/2024 6:56 PM PENOLOGY TEACHER 06/19/2024 7:03 PM PENOLOGY TEACHER us Terri Fuentes MD LAB BLOOD ORDERABLES Fin al Result NEEL [address] [facility] Department [place] [address] * Troponin T high-sensitivity series (baseline, 2hr, 4hr, 6hr) (06/19/2024 6:56 PM PENOLOGY TEACHER) Trop T hs <6 <=22 ng/L Comment: Interpretive Data For further hscTnT resources including the diagnostic algorithm and an aid in interpretation, copy and paste this link: https://nrl.testcatalog.org/show/hsTrop Current Interpretive Data last revised 2020. Testing performed by: [address] [address] Blood 06/19/2024 6:56 PM PENOLOGY TEACHER 06/19/2024 7:03 PM PENOLOGY TEACHER Terri Fuentes MD LAB BLOOD ORDERABLES Fin al Result Performing Organization Address [facility] Co de Phone Number [address] [place] [address] * Lipase (06/19/2024 6:56 PM PENOLOGY TEACHER) Pathologist [facility] Lipase 90 10 - 99 Units/L Comment:Testing performed by : [address] [address] Blood (Blood, Venous) 06/19/2024 6:56 PM PENOLOGY TEACHER 06/19/2024 7:03 PM PENOLOGY TEACHER Terri Fuentes MD LAB BLOOD ORDERABLES Fin al Result Performing Organization Address [facility] Co de Phone Number [address] [address] * Comprehensive metabolic panel (06/19/2024 6:56 PM PENOLOGY TEACHER) Pathologist [facility] Sodium 142 135 - 145 mmol/L Comment:Testing performed by : [address] [address] Potassium, pl 4.2 3.3 - 4.9 mmol/L NEEL SMITH Comment:Testing performed by : [address] [address] Chloride 106 97 - 110 mmol/L NEEL SMITH Comment:Testing performed by : [address] [address] CO2 22 22 - 32 mmol/L NEEL SMITH Comment:Testing performed by : [address] [address] Anion gap 14 2 - 15 mmol/L NEEL Comment:Testing performed by : [address] [address] BUN 15 6 - 25 mg/dL NEEL Comment:Testing performed by : [address], [place]., [address] Creatinine 0.97 0.80 - 1.30 mg/dL NEEL Comment:Testing performed by : [address] [address] Glucose 144 70 - 199 mg/dL [facility] Comment: Interpretive Data Fasting glucose >/= [...] was last revised 2022. Testing performed by: [address] [address] Calcium 9.9 8.5 - 10.3 mg/dL NEEL Comment:Testing performed by : [address] [address] Bilirubin, total 0.4 0.1 - 1.2 mg/dL NEEL Comment:Testing performed by : [address] [address] Protein, pl 7.4 6.5 - 8.5 g/dL NEEL Comment:Testing performed by : [address] [address] Albumin 4.5 3.5 - 5.0 g/dL NEEL Comment:Testing performed by : [address] [address] Alk phos 92 40 - 130 Units/L NEEL Comment:Testing performed by : [address] [address] ALT 26 7 - 55 Units/L NEEL SMITH Comment:Testing performed by : [address] [address] AST 25 10 - 50 Units/L NEEL Comment:Testing performed by : [address] [address] Blood 06/19/2024 6:56 PM PENOLOGY TEACHER 06/19/2024 7:03 PM PENOLOGY TEACHER us Terri Fuentes MD LAB BLOOD ORDERABLES Fin al Result [facility] [address] [facility] Department [place] [address] * (ABNORMAL) CBC with auto differential (06/19/2024 6:56 PM PENOLOGY TEACHER) WBC 20.0(H) 3.8 - 9.9 K/cumm Comment:Testing performed by : [address] [address] Hgb 13.8 13.0 - 17.5 g/dL NEEL Comment:Testing performed by : [address] [address] Hct 41.3 38.9 - 50.3 % NEEL Comment:Testing performed by : [address] [address] Plt 330 150 - 400 K/cumm NEEL SMITH Comment:Testing performed by : [address] [address] MPV 9.8 9.1 - 12.3 fL NEEL SMITH Comment:Testing performed by : [address] [address] RBC 5.02 4.30 - 5.80 M/cumm NEEL SMITH Comment:Testing performed by : [address] [address] MCV 82.3 81.3 - 96.4 fL NEEL Comment:Testing performed by : [address] [address] MCH 27.5 27.1 - 33.3 pg CERNER MH Comment:Testing performed by : [facility], [address] [place] [address]., [address] MCHC 33.4 32.3 - 35.7 g/dL NEEL SMITH Comment:Testing performed by : [address] [address] RDW CV 15.8(H) 11.1 - 14.9 % NEEL SMITH Comment:Testing performed by : [address] [address] RDW SD 46.4 35.7 - 48.1 fL NEEL SMITH Comment:Testing performed by : [address] [address] NRBC abs 0.00 0.00 - 0.01 K/cumm NEEL SMITH Comment:Testing performed by : [address] [address] Blood (Blood, Venous) 06/19/2024 6:56 PM PENOLOGY TEACHER 06/19/2024 7:03 PM PENOLOGY TEACHER us Terri Fuentse MD LAB BLOOD ORDERABLES Fin al Result Performing Organization Address City/State/[facility] Co de Phone Number NEEL [address] [facility] Department [place] [address] documented in this encounter Visit [...] For 1 dose Given 06/19/2024 8:27 PM PENOLOGY TEACHER 40 mg HYDROmorphone (DILAUDID) injection 1 mg 1 mg, intravenous, Administer over 2 Minutes, Once, On 06/19/24 at 2014, For 1 dose, Indications: PainIndications:Pain Given 06/19/2024 8:24 PM PENOLOGY TEACHER 1 mg HYDROmorphone (DILAUDID) injection 1 mg 1 mg, intravenous, Administer over 2 Minutes, Once, On 06/19/24 at 2134, For 1 dose, Indications: PainIndications:Pain Given 06/19/2024 9:55 PM PENOLOGY TEACHER 1 mg ketorolac (TORADOL) 30 mg/mL injection 15 mg 15 mg, intravenous, Once, On 06/19/24 at 2014, For 1 dose, For Adult IV push, administer over 15 seconds, Indications: PainIndications:Pain Given 06/19/2024 8:27 PM PENOLOGY TEACHER 15 mg ondansetron (ZOFRAN) injection 8 mg 8 mg, intravenous, Administer over 2 Minutes, Once, On 06/19/24 at 2014, For 1 dose, Indications: Nausea, VomitingIndications:Nausea,V omiting Given 06/19/2024 8:25 PM PENOLOGY TEACHER 8 mg sodium chloride 0.9% bolus 1,000 mL 1,000 mL, intravenous, at 1,000 mL/hr, Administer over 1 Hours, Once, On 06/19/24 at 2014, For 1 dose New Bag 06/19/2024 8:22 PM PENOLOGY TEACHER 1,000 mL 1000 mL/hr documented in this encounter Active and Recently Administered Medications Times are shown in PENOLOGY TEACHER. Scheduled Medication Order 06/17/2024 06/18/2024 06/19/2024 famotidine [...] 06/19/2024 documented in this encounter Care Teams Solar Field Service Technician Relationship Specialty Start Date End Date Td Lopez MD [address] [facility] [address] [place] [address] PCP - General Family Medicine 11/09/20 Angie Woodard MD [address] [facility] [address] [place] [address] Consulting Physician Gastroenterology 07/17/21 Vimal Woodruff MD [address] [address] Consulting Physician Gastroenterology 02/10/22 documented as of this encounter
--- OUTSIDE RECORDS SUMMARY | 2024-06-21 22:24 | XMS_ITS | Encounter Summary ---
Author Organization [facility] Address [address] [place] [address] Care Team Providers Care Depot Manager Name Role Phone Td Lopez MD Primary Care Provider [phone] Encounter Details Date Type Department Care Team (Latest Contact Info) Description 06/21/2024 Travel Social History Tobacco Use Types Packs/Day Years [...] week 09/28/2022 How often do you attend scientologist or scientology serv ices? Never 09/28/2022 Do you belong to any clubs o r organizations such as scientologist groups, unions, fraternal or athletic groups, or [...] and heating? Not hard at all 10/18/2022 [facility] - Occupational Stress Questionnaire Answer Date Recorded [...] place to sleep or slept in a senior living (including now)? No 10/18/2022 Sex and Gender Information Value Date Recorded Sex Assigned at Male 06/21/2024 7:21 PM BRAKE SPECIALIST Legal Sex Male 8:10 AM DONALDT Gender Identity Not on file Sexual Orientation Not on file documented as of this encounter Functional Status * Are you deaf or do you have serious difficulty hearing Answer Date of Assessment Author Status No 10/18/2022 3:05 AM Shannan Iqbal RN Active * Are you blind or do you have serious difficulty seeing, even when wearing glasses? Answer Date of Assessment Author Status No 10/18/2022 3:05 AM Shannan Iqbal RN Active * Do you have serious difficulty walking or climbing stairs? Answer Date of Assessment Author Status No 10/18/2022 3:05 AM Shannan Iqbal RN Active * Do you have difficulty dressing or bathing? Answer Date of Assessment Author Status No 10/18/2022 3:05 AM Shannan Iqbal RN Active * Because of a physical, mental, or emotional condition, do you have difficulty doing errands alone such as visiting a doctor's office or shopping? Answer Date of Assessment Author Status No 10/18/2022 3:05 AM Shannan Iqbal RN Active documented as of this encounter Mental Status * Because of a physical, mental, or emotional condition, do you have serious difficulty concentrating, remembering, or making decisions? Answer Entry Date Author Status No 10/18/2022 3:05 AM Shannan Iqbal RN Active documented in this encounter Plan of Treatment Not on file documented as of this encounter Goals Goal Patient Goal Type Associated Problems Recent Progress Patient-Stated? Author Patient will return to prior living situation and remain independent in ADLs upon discharge from hospital Lifestyle No Sintia Zhao RN documented as of this encounter Visit Diagnoses Not on filedocumented in this encounter Care Teams Depot Manager Relationship Specialty Start Date End Date Td Lopez MD PCP - General FAMILY PRACTICE 08/18/19 documented as of this encounter
--- OUTSIDE RECORDS SUMMARY | 2024-06-21 22:24 | XMS_ITS | Encounter Summary ---
Author Organization [facility] Address [address] [place] [id number] Care Team Providers Care Judo Instructor Name Role Phone Td Lopez MD Primary Care Provider [phone] Reason for Referral * Imaging (Emergency) - New Request Specialty Diagnoses / Procedures Referred By Brooke t Referred To Contact RADIOLOGY Procedures CT ABD+PEL W CON Checo Condon MD [address] [place] [address] Phone: tel: fax: Referral ID Status Reason Start Date Expiration Date V isits Requested Visits Authorized [id number] New Request 06/21/2024 06/21/2025 1 1 OFFICER Reason for Visit * Reason Comments Vomiting Encounter Details Date Type Department Care Team (Late st Contact Info) Description 06/21/2024 7:22 PM GIFT OFFICER - Present Emergency [facility] Emergency Room [id number] [place] [id number] Checo Condon MD [address] [place] [address] Vomiting Social History Tobacco Use Types Packs/Day Years [...] week 09/28/2022 How often do you attend jain or yarsanism serv ices? Never 09/28/2022 Do you belong to any clubs o r organizations such as jain groups, unions, fraternal or athletic groups, or [...] and heating? Not hard at all 10/18/2022 [facility] [place] [facility] - Occupational Stress [...] place to sleep or slept in a correction (including now)? No 10/18/2022 Sex and Gender Information Value Date Recorded Sex Assigned at Male 06/21/2024 7:21 PM GIFT OFFICER Legal Sex Male 8:10 AM CDT Gender Identity Not on file Sexual Orientation Not on file documented as of this encounter Last Filed Vital Signs Vital Sign Reading Time Taken Comments Blood Pressure 118/73 06/21/2024 10:08 PM GIFT OFFICER Pulse 92 06/21/2024 10:08 PM GIFT OFFICER Temperature 36.2 C (97.1 F) 06/21/2024 7:28 PM GIFT OFFICER Respiratory Rate 15 06/21/2024 10:0 8 PM GIFT OFFICER Oxygen Saturation 99% 06/21/2024 10: 08 PM GIFT OFFICER Inhaled Oxygen Concentration - - Weight 77.9 kg (171 lb 11.8 oz) 06/21/2024 7:28 PM GIFT OFFICER Height 177.8 cm (5' 10 ) 06/21/2024 7:28 PM GIFT OFFICER Body Mass Index 24.64 06/21/2024 7:28 PM GIFT OFFICER documented in this encounter Functional Status * Are you [...] Iqbal RN Active documented in this encounter ED Notes * Checo Condon MD - 06/21/2024 8:14 PM CST Chief Complaint Chief Complaint Patient presents with Vomiting History of Present Illness History from patient 44-year-old 1 PPD smoker with PMH of pancreatitis s/p ERCP and stent placement and removal who presents to the ER complaining of upper abdominal pain since 230 this afternoon Nausea, vomiting x 10 No diarrhea. Last BM was this morning No fever Previous abdominal surgery: cholecystectomy Filed Vitals: 06/21/24 1928 06/21/24211406/21/240 BP: (!) 180/103 (!) 144/98 Pulse: 68 78 Resp: 18 13 Temp: 97.1 ??F (36.2 ??C) TempSrc: Temporal SpO2: 100% 95% Weight: 77.9 kg (171 lb 11.8 oz) Height: 1.778 m (5' 10 ) On examination Patient in obvious pain No jaundice, pallor, cyanosis, scleral icterus Trachea central Equal air entry bilaterally CTA Abdomen soft with epigastric tenderness No pretibial pitting edema Differential diagnosis includes but is not limited to acute versus chronic pancreatitis, PUD, gastritis, aortic pathology. Patient has had a previous cholecystectomy Medical History ALLERGIES: Review of patient's allergies indicates: Allergen Reactions Sulfa Antibiotics Myalgias and Other (see comment) Reaction: neurological symptoms per patient Haldol [Haloperidol] Other (see comment) Musculoskeletal pain Reglan [Metoclopramide] Myalgias Capsaicin Other (see comment) Pt states it gets into his scars and causes a lot of pain Doxycycline GI Upset MEDICATIONS: Prior to Admission medications Medication Sig Start Date End Date Taking? Authorizing Provider amLODIPine (NORVASC) 5 MG tablet Take 1 tablet (5 mg total) by mouth daily. 10/20/22 SAMUEL Morillo apixaban (ELIQUIS) 5 MG tablet Take 1 tablet (5 mg total) by mouth 2 (two) times daily. Indications: Blood Clot in a Deep Vein 10/19/22 SAMUEL Morillo CREON [id number] units CAPSULE ENTERIC COATED PARTICLES Take 36,000 units of lipase by mouth 3 (three) times daily with meals. 09/18/22 Default History Genericprovider dicyclomine (BENTYL) 20 MG tablet Take 1 tablet (20 mg total) by mouth every 6 (six) hours as needed (abd pain). 11/05/22 Nelida Carrizales MD famotidine (PEPCID) 40 MG tablet daily. Default History Genericprovider hyoscyamine (LEVSIN/SL) 0.125 MG SL tablet DISSOLVE 1 TABLET UNDER THE TONGUE 4 TIMES DAILY NEEDED FOR ABDOMINAL DISCOMFORT 10/09/23 Default History Genericprovider ondansetron (ZOFRAN-ODT) 4 MG disintegrating tablet Take 1 tablet (4 mg total) by mouth every 8 (eight) hours as needed for Nausea. 01/03/24 Luz Cain MD oxyCODONE-acetaminophen (PERCOCET) 5-325 MG tablet Take 1 tablet by mouth every 4 (four) hours as needed. Indications: Acute Pain < 3 Day Supply 10/19/22 Carly Sharp Arely, APNP promethazine (PHENERGAN) 25 MG tablet Take 1 tablet (25 mg total) by mouth every 6 (six) hours as needed for Nausea. 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 Sphincter of Oddi dysfunction PAST SURGICAL HISTORY: Past Surgical History: Procedure Laterality Date CHOLECYSTECTOMY 2012 COLONOSCOPY N/A 04/15/2019 COLONOSCOPY Terminal Ileum Bxs Random colon BXs via Jumbo cold forcep performed by Angie Woodard MD at [facility] GI EGD ERCP HC BILIARY STENT FAMILY HISTORY: Family History Problem Relation Name Age of Onset No Known Problems Mother No Known Problems Father SOCIAL HISTORY: Social History Tobacco Use Smoking status: Every Day Current packs/day: 1.00 Average packs/day: 1 pack/day for 10.0 years (10.0 ttl pk-yrs) Types: Cigarettes Smokeless tobacco: Never Vaping Use Vaping status: Never Used Substance Use Topics Alcohol use: No Drug use: Not Currently Types: Marijuana Comment: Occasional Review of Systems Review of Systems Physical Exam Filed Vitals: 06/21/24 1928 06/21/24 2115 06/21/24 2200 BP: (!) 180/103 (!) 144/98 Pulse: 68 78 Resp: 18 13 Temp: 97.1 ??F (36.2 ??C) TempSrc: Temporal SpO2: 100% 95% Weight: 77.9 kg (171 lb 11.8 oz) Height: 1.778 m (5' 10 ) Physical Exam Diagnostic Studies / Procedures ELECTROCARDIOGRAMS: No results found for this visit on 06/21/24. LABORATORY STUDIES: Results for orders placed or performed during the hospital encounter of 06/21/24 CBC W/DIFF AUTOMATED Result Value Ref Range WBC 19.40 (H) 4.4 - 11.0 x10'3/uL RBC 4.96 4.50 - 5.90 x10'6/uL HGB 13.6 (L) 14.0 - 17.5 G/DL HCT 41.6 41.5 - 50.4 % MCV 83.9 80.0 - 96.0 FL MCH 27.4 26.5 - 31.4 PG MCHC 32.7 31.9 - 34.8 G/DL RDW 15.9 (H) 12.3 - 14.3 % PLT 319 151 - 353 x10'3/uL MPV 10.7 9.7 - 11.9 FL RBC MORPHOLOGY NORMAL PLT MORPH. NORMAL WBC MORPHOLOGY NORMAL LYMPHOCYTES % 7.5 (L) 15.8 - 45.0 % NEUTROPHILS % 87.0 (H) 42.1 - 71.9 % MONOCYTES % 4.4 (L) 5.7 - 12.5 % EOSINOPHILS 0.1 0.0 - 5.6 % BASOPHILS 0.3 0.0 - 1.3 % ABS. NEUTROPHILS 16.91 (H) 1.40 - 6.00 x10'3/uL IMMATURE GRANS % 0.7 (H) 0.0 - 0.5 % ABS. LYMPHOCYTES 1.45 0.80 - 4.70 x10'3/uL COMPREHENSIVE METABOLIC PANEL Result Value Ref Range GLUCOSE 126 (H) 70 - 99 MG/DL BUN 9 7 - 18 MG/DL CREATININE S/P/B 1.01 0.7 - 1.3 MG/DL SODIUM S/P/B 144 136 - 145 MMOL/L POTASSIUM S/P/B 3.8 3.5 - 5.1 MMOL/L CHLORIDE S/P/B 103 100 - 108 MMOL/L CO2 28.1 21 - 32 MMOL/L CALCIUM S/P/B 9.7 8.5 - 10.1 MG/DL BILIRUBIN TOTAL S/P/B 0.6 0.2 - 1.2 MG/DL TOTAL PROTEIN S/P/B 7.4 6.4 - 8.2 G/DL ALBUMIN S/P/B 4.5 3.4 - 5.0 G/DL AST 18 15 - 37 U/L ALT 26 16 - 60 U/L ALKALINE PHOSPHATASE S/P/B 85 50 - 136 U/L ANION GAP 12.9 5 - 15 MMOL/L BUN CREATININE RATIO 8.9 6 - 26 A/G RATIO 1.6 1.0 - 2.0 RATIO GFR ESTIMATE >90 >90 ML/MIN/1.73 M2 LIPASE Result Value Ref Range LIPASE 61 16 - 77 UNITS/L Urinalysis, Auto, Complete Result Value Ref Range COLOR (U) YELLOW TRANSPARENCY HAZY SPECIFIC GRAVITY (U) 1.015 1.000 - 1.030 U PH 8.0 5.0 - 9.0 LEUKOCYTES (U) NEGATIVE NEGATIVE NITRITES NEGATIVE NEGATIVE PROTEIN RANDOM (U) NEGATIVE NEGATIVE GLUCOSE (U) NEGATIVE NEGATIVE KETONES MG/DL (U) 1+ (A) NEGATIVE BILIRUBIN (U) NEGATIVE NEGATIVE BLOOD (U) NEGATIVE NEGATIVE WBC/HPF 0-5 0 - 5 /HPF RBC/HPF 0-5 0 - 5 /HPF EPI/HPF FEW /HPF CRYSTALS (U) FEW /HPF BACTERIA (U) FEW /HPF IMAGING STUDIES CT ABD+PEL W CON Final Result by User, [email or web address] (06/21 2205) [facility] [address] [place] [id number] EXAMINATION: CT Abdomen and Pelvis with contrast EXAM DATE/TIME: 06/21/2024 9:20 PM REASON FOR EXAM: abd pain Abdominal pain on the right side today COMPARISON: CT abdomen and pelvis 04/26/2024 TECHNIQUE: Axial CT images of the abdomen and pelvis are obtained following uneventful intravenous administration of 75 cc Isovue-370. Subsequent coronal and sagittal reformatted sequences are created for evaluation. A dose lowering technique was used for this procedure, which may include, but is not limited to, dose reduction technique, automated exposure control, iterative reconstruction, ALARA (As Low As Reasonably Achievable), or Image Gently techniques. FINDINGS: Minimal dependent atelectasis. No pleural effusion. Heart size normal. No pericardial effusion. The liver and spleen are normal in size and surface contour. No abnormal enhancing hepatic lesions. Tiny hypodense lesions in the liver are too small to accurately characterize but likely represent small hemangiomas or cysts. Cholecystectomy clips. Small amount of pneumobilia. This is similar to prior study. Pancreas and adrenal glands unremarkable. Kidneys demonstrate symmetric uptake of contrast. No hydronephrosis or obstructive uropathy on either side. Abdominal aorta normal in caliber throughout. The bowel is normal in caliber. No evidence of bowel obstruction. The appendix is normal. No free fluid in the pelvis. Bladder contours are smooth. Small inguinal hernias containing only fat. Bone level imaging shows no destructive osseous lesions. ===== IMPRESSION: ===== 1. No acute abdominal or pelvic abnormalities. No specific CT findings to explain patient's symptoms. 2. Small inguinal hernias containing only fat. 3. Stable pneumobilia. Referred By: Interpreted By: Jayy De La Torre MD, 06/21/2024 9:59 PM ED Course / Medical Decision Making Medical Decision Making Amount and/or Complexity of Data Reviewed Labs: ordered. Radiology: ordered. O2 sat 95% RA Triage note noted Labs WBC 19.4. Otherwise CBC, CMP unremarkable. Lipase negative. UA negative Radiology CT abdomen pelvis negative D/W patient Clinical Impression Chronic pancreatitis, unspecified pancreatitis type ([facility]/HCC HHS/HCC) (Primary) Disposition: Discharge Checo Condon MD 06/21/242208 OFFICER * Jade Rivers RN - 06/21/2024 7:26 PM CST Pt ambulatory to ED w/ c/o N/V and RLQ abdominal pain that started half an hour ago after pt ate dinner. Pt states he had 10 episodes of emesis in the last half hour that all resembled his dinner that he had eaten. OFFICER documented in this encounter Plan of Treatment Not on file documented as of this encounter Goals Goal Patient Goal Type Associated Problems Recent Progress Patient-Stated? Author Patient will return to prior living situation and remain independent in ADLs upon discharge from hospital Lifestyle No Sintia Zhao RN documented as of this encounter Procedures * The patient is currently admitted. The information in this section might not be complete until the patient is discharged. Procedure Name Priority Date/Time Associated Diagnosis Comments CT ABD+PEL W CON STAT 06/21/2024 9:50 PM GIFT OFFICER URINALYSIS, AUTO, COMPLETE STAT 06/21/2024 9:14 PM GIFT OFFICER LIPASE STAT 06/21/2024 7:58 PM GIFT OFFICER COMPREHENSIVE METABOLIC PANEL STAT 06/21/2024 7:34 PM GIFT OFFICER CBC W/DIFF AUTOMATED STAT 06/21/2024 7:34 PM GIFT OFFICER documented in this encounter Results * CT ABD+PEL W CON (06/21/2024 9:50 PM GIFT OFFICER) Anatomical Region Laterality Modality Abdomen Computed Tomogra phy 06/21/2024 9:59 PM GIFT OFFICER Impressions 06/21/2024 10:01 PM GIFT OFFICER IMPRESSION: ===== 1. No acute abdominal or pelvic abnormalities. No specific CT findings to explain patient's symptoms. 2. Small inguinal hernias containing only fat. 3. Stable pneumobilia. Referred By: Interpreted By: Jayy De La Torre MD, 06/21/2024 9:59 PM Narrative 06/21/2024 10:01 PM GIFT OFFICER [facility] [address] [facility] [place] [address] EXAMINATION: CT Abdomen and Pelvis with contrast EXAM DATE/TIME: 06/21/2024 9:20 PM REASON FOR EXAM: abd pain Abdominal pain on the right side today COMPARISON: CT abdomen and pelvis 04/26/2024 TECHNIQUE: Axial CT images of the abdomen and pelvis are obtained following uneventful intravenous administration of 75 cc Isovue-370. Subsequent coronal and sagittal reformatted sequences are created for evaluation. A dose lowering technique was used for this procedure, which may include, but is not limited to, dose reduction technique, automated exposure control, iterative reconstruction, ALARA (As Low As Reasonably Achievable), or Image Gently techniques. FINDINGS: Minimal dependent atelectasis. No pleural effusion. Heart size normal. No pericardial effusion. The liver and spleen are normal in size and surface contour. No abnormal enhancing hepatic lesions. Tiny hypodense lesions in the liver are too small to accurately characterize but likely represent small hemangiomas or cysts. Cholecystectomy clips. Small amount of pneumobilia. This is similar to prior study. Pancreas and adrenal glands unremarkable. Kidneys demonstrate symmetric uptake of contrast. No hydronephrosis or obstructive uropathy on either side. Abdominal aorta normal in caliber throughout. The bowel is normal in caliber. No evidence of bowel obstruction. The appendix is normal. No free fluid in the pelvis. Bladder contours are smooth. Small inguinal hernias containing only fat. Bone level imaging shows no destructive osseous lesions. ===== Procedure Note Jayy De La Torre MD - 06/21/2024 [facility] [address] [place] [address] EXAMINATION: CT Abdomen and Pelvis with contrast EXAM DATE/TIME: 06/21/2024 9:20 PM REASON FOR EXAM: abd pain Abdominal pain on the right side today COMPARISON: CT abdomen and pelvis 04/26/2024 TECHNIQUE: Axial CT images of the abdomen and pelvis are obtainedfollowing uneventful intravenous administration of 75 cc Isovue-370.Subsequent coronal and sagittal reformatted sequences are created forevaluation. A dose lowering technique was used for this procedure, whichmay include, but is not limited to, dose reduction technique, automatedexposure control, iterative reconstruction, ALARA (As Low As ReasonablyAchievable), or Image Gently techniques. FINDINGS: Minimal dependent atelectasis. No pleural effusion. Heart sizenormal. No pericardial effusion. The liver and spleen are normal in size and surface contour. No abnormalenhancing hepatic lesions. Tiny hypodense lesions in the liver are toosmall to accurately characterize but likely represent small hemangiomas orcysts. Cholecystectomy clips. Small amount of pneumobilia. This issimilar to prior study. Pancreas and adrenal glands unremarkable.Kidneys demonstrate symmetric uptake of contrast. No hydronephrosis orobstructive uropathy on either side. Abdominal aorta normal in caliberthroughout. The bowel is normal in caliber. No evidence of bowelobstruction. The appendix is normal. No free fluid in the pelvis.Bladder contours are smooth. Small inguinal hernias containing only fat.Bone level imaging shows no destructive osseous lesions. ===== IMPRESSION: ===== 1. No acute abdominal or pelvic abnormalities. No specific CT findings toexplain patient's symptoms. 2. Small inguinal hernias containing only fat. 3. Stable pneumobilia. Referred By: Interpreted By: Jayy De La Torre MD, 06/21/2024 9:59 PM Checo Condon MD CT Final Result * (ABNORMAL) Urinalysis, Auto, Complete (06/21/2024 9:14 PM GIFT OFFICER) COLOR (U) YELLOW 06/21/2024 9:38 PM [facility] TRANSPARENCY HAZY 06/21/2024 9:38 PM [facility] SPECIFIC GRAVITY (U) 1.015 1.000 - 1.030 06/21/2024 9:38 PM [facility] U PH 8.0 5.0 - 9.0 06/21/2024 9:38 PM [facility] LEUKOCYTES (U) NEGATIVE NEGATIVE 06/21/2024 9:38 PM [facility] NITRITES NEGATIVE NEGATIVE 06/21/2024 9:38 PM [facility] PROTEIN RANDOM (U) NEGATIVE NEGATIVE 06/21/2024 9:38 PM [facility] GLUCOSE (U) NEGATIVE NEGATIVE 06/21/2024 9:38 PM [facility] KETONES MG/DL (U) 1+(A) NEGATIVE 06/21/2024 9:38 PM [facility] BILIRUBIN (U) NEGATIVE NEGATIVE 06/21/2024 9:38 PM [facility] BLOOD (U) NEGATIVE NEGATIVE 06/21/2024 9:38 PM [facility] WBC/HPF 0-5 0 - 5 /HPF 06/21/2024 9:38 PM [facility] RBC/HPF 0-5 0 - 5 /HPF 06/21/2024 9:38 PM [facility] EPI/HPF FEW /HPF 06/21/2024 9:[address] [facility] CRYSTALS (U) FEW /HPF 06/21/2024 9:[address] [facility] Comment:AMORPHOUS MATERIAL BACTERIA (U) FEW /HPF 06/21/2024 9:[address] [facility] URINE SPECIMEN OBTAINED BY CLEAN CATCH PROCEDURE / Unknown 06/21/2024 9:14 PM GIFT OFFICER us Checo Condon MD URINE ORDERABLES Final Result Performing Organization Address City/[facility]/ZIP Co de Phone Number [facility] [address] [place] [address], [place] [phone] * LIPASE (06/21/2024 7:58 PM GIFT OFFICER) LIPASE 61 16 - 77 UNITS/L 06/21/2024 8:30 PM [facility] 06/21/2024 7:58 PM GIFT OFFICER us Checo Condon MD LABORATORY Final Result Performing Organization Address City/[facility]/ZIP Co de Phone Number [facility] [address] [place] [address], [place] [phone] * (ABNORMAL) COMPREHENSIVE METABOLIC PANEL (06/21/2024 7:34 PM GIFT OFFICER) GLUCOSE 126(H) 70 - 99 MG/DL 06/21/2024 8:[address] [facility] BUN 9 7 - 18 MG/DL 06/21/2024 8:17 PM [facility] CREATININE S/P/B 1.01 0.7 - 1.3 MG/DL 06/21/2024 8:17 PM [facility] SODIUM S/P/B 144 136 - 145 MMOL/L 06/21/2024 8:17 PM [facility] POTASSIUM S/P/B 3.8 3.5 - 5.1 MMOL/L 06/21/2024 8:17 PM [facility] CHLORIDE S/P/B 103 100 - 108 MMOL/L 06/21/2024 8:17 PM [facility] CO2 28.1 21 - 32 MMOL/L 06/21/2024 8:17 PM [facility] CALCIUM S/P/B 9.7 8.5 - 10.1 MG/DL 06/21/2024 8:17 PM [facility] BILIRUBIN TOTAL S/P/B 0.6 0.2 - 1.2 MG/DL 06/21/2024 8:17 PM [facility] TOTAL PROTEIN S/P/B 7.4 6.4 - 8.2 G/DL 06/21/2024 8:17 PM [facility] ALBUMIN S/P/B 4.5 3.4 - 5.0 G/DL 06/21/2024 8:17 PM [facility] AST 18 15 - 37 U/L 06/21/2024 8:17 PM [facility] ALT 26 16 - 60 U/L 06/21/2024 8:17 PM [facility] ALKALINE PHOSPHATASE S/P/B 85 50 - 136 U/L 06/21/2024 8:17 PM [facility] ANION GAP 12.9 5 - 15 MMOL/L 06/21/2024 8:17 PM [facility] BUN CREATININE RATIO 8.9 6 - 26 06/21/2024 8:17 PM [facility] A/G RATIO 1.6 1.0 - 2.0 RATIO 06/21/2024 8:17 PM [facility] GFR ESTIMATE >90 >90 ML/MIN/1.7 3 M2 06/21/2024 8:17 PM [facility] Comment: NOTE: eGFR is not calculated for patients <18 years of age. This is an estimated GFR calculation using the new CKD EPI creatinine equation without race and so does not require a correction factor for race. This estimated GFR should not be used for calculating drug doses. 06/21/2024 7:34 PM GIFT OFFICER Checo Condon MD LABORATORY Final Result [facility] [address] [place] [address], * (ABNORMAL) CBC W/DIFF AUTOMATED (06/21/2024 7:34 PM GIFT OFFICER) WBC 19.40(H) 4.4 - 11.0 x10'3/uL 06/21/2024 8:11 PM [facility] RBC 4.96 4.50 - 5.90 x10'6/uL 06/21/2024 8:11 PM [facility] HGB 13.6(L) 14.0 - 17.5 G/DL 06/21/2024 8:11 PM [facility] HCT 41.6 41.5 - 50.4 % 06/21/2024 8:11 PM [facility] MCV 83.9 80.0 - 96.0 FL 06/21/2024 8:11 PM [facility] MCH 27.4 26.5 - 31.4 PG 06/21/2024 8:11 PM [facility] MCHC 32.7 31.9 - 34.8 G/DL 06/21/2024 8:11 PM [facility] RDW 15.9(H) 12.3 - 14.3 % 06/21/2024 8:11 PM [facility] PLT 319 151 - 353 x10'3/uL 06/21/2024 8:11 PM [facility] MPV 10.7 9.7 - 11.9 FL 06/21/2024 8:11 PM [facility] RBC MORPHOLOGY NORMAL 06/21/2024 8:11 PM [facility] PLT MORPH. NORMAL 06/21/2024 8:11 PM [facility] WBC MORPHOLOGY NORMAL 06/21/2024 8:11 PM [facility] LYMPHOCYTES % 7.5(L) 15.8 - 45.0 % 06/21/2024 8:11 PM [facility] NEUTROPHILS % 87.0(H) 42.1 - 71.9 % 06/21/2024 8:11 PM [facility] MONOCYTES % 4.4(L) 5.7 - 12.5 % 06/21/2024 8:11 PM [facility] EOSINOPHILS 0.1 0.0 - 5.6 % 06/21/2024 8:11 PM [facility] BASOPHILS 0.3 0.0 - 1.3 % 06/21/2024 8:11 PM [facility] ABS. NEUTROPHILS 16.91(H) 1.40 - 6.00 x10'3/uL 06/21/2024 8:11 PM [facility] IMMATURE GRANS % 0.7(H) 0.0 - 0.5 % 06/21/2024 8:11 PM [facility] ABS. LYMPHOCYTES 1.45 0.80 - 4.70 x10'3/uL 06/21/2024 8:11 PM [facility] 06/21/2024 7:34 PM GIFT OFFICER Checo Condon MD LABORATORY Final Result [facility] [address] [place] [address], [place] [phone] documented in this encounter Visit Diagnoses Diagnosis Chronic pancreatitis, unspecified pancreatitis type (CMS/HCC HHS/HCC)- Primary documented in this encounter Administered Medications Inactive Administered Medications - up to 3 most recent administrations Medication Order MAR Action Action Date Dose Rate Site HYDROmorphone (DILAUDID) injection 1 mg 1 mg, Intravenous, Once, 1 dose, On Thu06/21/24 at 2115, Administer slowly over at least 2-3 minutes. Given 06/21/2024 9:16 PM GIFT OFFICER 1 mg HYDROmorphone (DILAUDID) injection 1 mg 1 mg, Intravenous, Once, 1 dose, On Thu06/21/24 at 2215, Administer slowly over at least 2-3 minutes. Given 06/21/2024 10:15 PM GIFT OFFICER 1 mg iopamidol (ISOVUE-370) 76 % injection 75 mL 75 mL, Intravenous, IMG once as needed, Contrast, 1 dose, Starting on Thu06/21/24 at 2150, Until Thu06/21/24 at 2150 Given 06/21/2024 9:50 PM GIFT OFFICER 75 mLs LORazepam (ATIVAN) injection 1 mg 1 mg, Intravenous, Once, 1 dose, On Thu06/21/24 at 2015, For IV use, further dilute with an equal volume of saline. Do not exceed a rate of 2 mg/min. Given 06/21/2024 8:23 PM GIFT OFFICER 1 mg LORazepam (ATIVAN) injection 1 mg 1 mg, Intravenous, Once, 1 dose, On Thu06/21/24 at 2100, For IV use, further dilute with an equal volume of saline. Do not exceed a rate of 2 mg/min. Given 06/21/2024 9:17 PM GIFT OFFICER 1 mg morphine injection 4 mg 4 mg, Intravenous, Once, 1 dose, On Thu06/21/24 at 2015 Given 06/21/2024 8:22 PM GIFT OFFICER 4 mg ondansetron (ZOFRAN) injection 4 mg 4 mg, Intravenous, Once, 1 dose, On Thu06/21/24 at 2014, IV push over 2-5 minutes. Given 06/21/2024 8:23 PM GIFT OFFICER 4 mg sodium chloride 0.9% bolus infusion 1,000 mL 1,000 mL, Intravenous, Administer over 60 Minutes, Bolus (Once), 1 dose, On Thu06/21/24 at 2014 New Bag 06/21/2024 8:23 PM GIFT OFFICER 1,000 mLs 1000 mL/hr documented in this encounter Active and Recently Administered Medications Times are shown in GIFT OFFICER. Scheduled Medication Order 06/19/2024 06/20/2024 06/21/2024 HYDROmorphone (DILAUDID) injection 1 mg (COMPLETED) 1 mg, Intravenous, Once, 1 dose, On Thu06/21/24 at 2114, Administer slowly over at least 2-3 minutes. 2115 (Given - Provid er: Jade Rivers RN) HYDROmorphone (DILAUDID) injection 1 mg (COMPLETED) 1 mg, Intravenous, Once, 1 dose, On Thu06/21/24 at 221, Administer slowly over at least 2-3 minutes. 2214 (Given - Provid er: Jade Rivers RN) LORazepam (ATIVAN) injection 1 mg (COMPLETED) 1 mg, Intravenous, Once, 1 dose, On Thu06/21/24 at 2014, For IV use, further dilute with an equal volume of saline. Do not exceed a rate of 2 mg/min. 2022 (Given - Provid er: Jade Rivers RN) LORazepam (ATIVAN) injection 1 mg (COMPLETED) 1 mg, Intravenous, Once, 1 dose, On Thu06/21/24 at 2100, For IV use, further dilute with an equal volume of saline. Do not exceed a rate of 2 mg/min. 2116 (Given - Provid er: Jade Rivers RN) morphine injection 4 mg (COMPLETED) 4 mg, Intravenous, Once, 1 dose, On Thu06/21/24 at 2014 2021 (Given - Provid er: Jade Rivers RN) ondansetron (ZOFRAN) injection 4 mg (COMPLETED) 4 mg, Intravenous, Once, 1 dose, On Thu06/21/24 at 2014, IV push over 2-5 minutes. 2022 (Given - Provid er: Jade Rivers, RN) sodium chloride 0.9% bolus infusion 1,000 mL (COMPLETED) 1,000 mL, Intravenous, Administer over 60 Minutes, Bolus (Once), 1 dose, On Thu06/21/24 at 2014 2022 (New Bag - Prov ider: Jade Rivers, RN)2127 (Infusion Stop Time - Provider: Jade Rivers RN) PRN Medication Order 06/19/2024 06/20/2024 06/21/2024 iopamidol (ISOVUE-370) 76 % injection 75 mL (COMPLETED) 75 mL, Intravenous, IMG once as needed, Contrast, 1 dose, Starting on Thu06/21/24 at 2150, Until Thu06/21/24 at 215 2150 (Given - Provid er: Shawna De Souza, RTR) documented in this encounter Care Teams Judo Instructor Relationship Specialty Start Date End Date Td Lopez MD PCP - General FAMILY PRACTICE 08/18/19 documented as of this encounter
--- OUTSIDE RECORDS SUMMARY | 2024-06-21 22:24 | XMS_ITS | Clinical Summary ---
Author Organization [facility] Address [address] [place] [address] Care Team Providers Care Automotive Heavy Mechanic Name Role Phone Alee Zhao MD Primary Care Provider [phone] Source Comments [facility],non-owned Affiliates and Associated Physician Practices is amultiple site organization consisting of ambulatory clinics and hospital sitesin [place], [place], [place] and [place]. This disclosure is being madepursuant to the Care Everywhere program and may not contain all information available regarding this patient. Last updated 18.[facility] Allergies Active Allergy Reactions Criticality Noted Date [...] Comments Blood Pressure 120/71 03/17/2019 5:03 PM DATA SCIENCES DIRECTOR Pulse 75 03/17/2019 5:03 PM DATA SCIENCES DIRECTOR Temperature 36.9 C (98.4 F) 03/17/2019 2:00 PM DATA SCIENCES DIRECTOR Respiratory Rate 17 03/17/2019 5:03 PM DATA SCIENCES DIRECTOR Oxygen Saturation 99% 03/17/2019 5:03 PM DATA SCIENCES DIRECTOR Inhaled Oxygen Concentration - - Weight 77.1 kg (170 lb) 03/17/2019 2:00 PM DATA SCIENCES DIRECTOR Height 177.8 cm (5' 10 ) 03/17/2019 2:00 PM DATA SCIENCES DIRECTOR Body Mass Index 24.39 03/17/2019 2:00 PM DATA SCIENCES DIRECTOR Plan of Treatment Health Maintenance Due Date [...] RFLX NAAT QUANT STAT 03/27/2018 9:12 PM DATA SCIENCES DIRECTOR HIV-1 HIV-2 ANTIGEN/ANTIBODY STAT 03/27/2018 9:12 PM DATA SCIENCES DIRECTOR from Last 3 Months or Most Recently Relevant to Health Maintenance Results * HIV-1 HIV-2 ANTIGEN/ANTIBODY (03/27/2018 9:12 PM DATA SCIENCES DIRECTOR) HIV Antigen/Antibod y 1 & 2 Non-reacti ve Non-react nemesio 03/27/2018 10:17 PM DATA SCIENCES DIRECTOR [facility] Comment: Neither HIV-1 p24 Antigen nor HIV-1/HIV-2 Antibodies are detected. Blood BLOOD SPECIMEN / Unknown Venipuncture / Unknown 03/27/2018 9:12 PM DATA SCIENCES DIRECTOR 03/27/2018 9:21 PM DATA SCIENCES DIRECTOR Davi Patrick MD LAB - HEMATOLOGY ORD ERABLES [address] [phone] * HEPATITIS C AB SCREEN RFLX NAAT QUANT (03/27/2018 9:12 PM DATA SCIENCES DIRECTOR) Hepatitis C Antibody Non-react nemesio Non-reac tive 03/27/2018 10:20 PM DATA SCIENCES DIRECTOR [facility] Comment: Hepatitis C Antibody screen indicates no serologic evidence of past or current infection with Hepatitis C Virus. Patients with unexplained liver disease who are immunocompromised or suspected of having acute Hepatitis C infection may benefit from Nucleic Acid Test (RINKU) for Hepatitis C Viral RNA to confirm Hepatitis C status. Blood BLOOD SPECIMEN / Unknown Venipuncture / Unknown 03/27/2018 9:12 PM DATA SCIENCES DIRECTOR 03/27/2018 9:21 PM DATA SCIENCES DIRECTOR Davi Patrick MD LAB - CHEMISTRY ORDE SAMEER [address] [phone] from Last 3 Months or Most Recently Relevant to Health Maintenance Care Teams Automotive Heavy Mechanic Relationship Specialty Start Date End Date Alee Zhao MD [address] [place] [phone] PCP - General Family Medicine 03/25/18
--- OUTSIDE RECORDS SUMMARY | 2024-06-21 22:24 | XMS_ITS | Encounter Summary ---
Author Organization [facility] Address [address] [place] [address] Care Team Providers Care Gm/Svp Global Publisher Business Name Role Phone Td Lopez MD Primary Care Provider + Angie Woodard MD Unavailable [phone] Vimal Woodruff MD Unavailable [phone] Alannah Baumann MA Unavailable [phone] Encounter Details Date Type Department Care Team (Late st Contact Info) Description 12/30/2023 Orders Only [facility] Health Information Management [address] [place] [id number] Scanning, Provider Social History Tobacco Use Types Packs/Day Years Used Date Smoking Tobacco: Every Day Cigarettes Smokeless Tobacco: Never Alcohol Use Standard Drinks/Week Comments Not Currently 0 (1 standard drink = 0.6 oz pur e alcohol) [facility] Utilities Answer Date Recorded In the past 12 months has [employer], gas, oil, or water [employer] threatened to shut off services in your [...] How often do you attend chur or congregational services? Never 09/21/2023 Do you belong to any clubs o r organizations such as muslim groups, unions, fraternal or athletic groups, or [...] on file Legal Sex Male 3:38 AM PUBLIC RELATIONS REPRESENTATIVE Gender Identity Not on file Sexual Orientation [...] on filedocumented in this encounter Care Teams G[employer] Global Publisher Business Relationship Specialty Start Date End Date Td Lopez MD [address] [facility] [address] [place] [address] PCP - General Family Medicine 11/09/20 Angie Woodard MD [address] [facility] [address] [place] [address] Consulting Physician Gastroenterology 07/17/21 Vimal Woodruff MD [address] [facility] [address] [place] [address] Consulting Physician Gastroenterology 02/10/22 Alannah Baumann MA [address] [place] [address] [address] [place] [address] [employer] Archivist 12/31/23 01/05/24 documented as of this encounter
--- OUTSIDE RECORDS SUMMARY | 2024-06-21 22:24 | XMS_ITS | Clinical Summary ---
Author Organization [facility] Address [facility] [place] [address] Care Team Providers Care Heel Seat Flap Stapler Name Role Phone Td Lopez MD Primary Care Provider [phone] Allergies Active Allergy Reactions Criticality Noted Date Comments Capsaicin Other (see comment) Low 05/20/2019 Pt states it gets into his scars and causes a lot of pain Doxycycline GI Upset Low 03/29/2017 Haloperidol Other (see comment) 01/29/2022 Musculoskeletal pain Metoclopramide Myalgias 03/29/2017 Sulfa Antibiotics Myalgias,Other (see comment) Medium 03/29/2017 Reaction: neurological symptoms per patient Medications CREON [id number] units CAPSULE ENTERIC COATED PARTICLES Take 36,000 [...] pain 10/18/2022 Abdominal pain 10/18/2022 Acute pancreatitis ([facility]) 09/28/2022 Renal infarct ([facility]) 09/08/2022 Marijuana use 09/04/2022 Normocytic normochromic anemia 09/04/2022 Sphincter of Oddi dysfunction 09/04/2022 Tobacco use disorder, continuous 09/04/2022 Pancreatitis ([facility]) 09/02/2022 GI bleed 06/28/2022 Folliculitis 01/08/2022 Overview (09/04/2022): Last Assessment & Plan: - chronic, uncontrolled - start clindamycin gel daily x 7 days - ref to derm for eval. Manipulative behavior 07/14/2021 COVID-19 vaccine series completed 06/27/2021 Overview (09/04/2022): Moderna x2 Drug-seeking behavior 06/27/2021 History of 2019 novel coronavirus disease (COVID -19) 06/27/2021 Drug abuse and dependence ([facility]) 09/2020 Overview (09/04/2022): Last Assessment & Plan: - using mariajuana occasionally; has had frequent rx for opioids in ER - pt claims at least several days since last ER visit with narcotics given - record review suggests at least 2 wks - will check UDS Acute recurrent pancreatitis (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) 10/18/2018 Mild malnutrition ([facility]) 10/18/2018 Neutrophilic leukocytosis 10/18/2018 Tobacco use disorder 10/18/2018 Other chronic pancreatitis ([facility]) 02/2019 Overview (02/18/2019): Overview: Added automatically from request for surgery [id number] Chronic abdominal pain 03/30/2017 Assessment & Plan (03/30/2017 12:03 PM MILL RECORDER): Acute on chronic, stable Patient with possible [...] Continue to advance diet as tolerated Sepsis ([facility]) 03/30/2017 Assessment & Plan (03/30/2017 12:03 PM MILL RECORDER): Present on admission, resolved Lactic acid 2.8 [...] 03/30/2017 Assessment & Plan (03/30/2017 12:25 AM MILL RECORDER): - established, controlled - continue home fluoxetine, nortriptyline GERD (gastroesophageal reflux disease) 7 Assessment & Plan (03/30/2017 12:25 AM MILL RECORDER): - established, controlled - continue home nexium Hypertension 03/30/2017 Overview (03/30/2017): - established, controlled - continue home metoprolol Assessment & Plan (03/30/2017 1:01 AM MILL RECORDER): - established, controlled - continue home metoprolol Influenza 03/30/2017 Depression 03/30/2017 Overview (02/18/2019): Overview: Last Assessment & Plan: - established, controlled - continue home fluoxetine, nortriptyline Flu 03/29/2017 Assessment & Plan (03/30/2017 12:03 PM MILL RECORDER): Acute, influenza A + on admission, asymptomatic [...] Encounters Date Type Department Care Team Description 06/21/2024 7:22 PM MILL RECORDER - Present Emergency [facility] Emergency Room [id number] [place] [id number] Checo Condon MD Vomiting 06/21/2024 Travel 04/26/2024 7:22 PM MILL RECORDER - 04/27/2024 12:35 AM MILL RECORDER Emergency [facility] Emergency Room [id number] [place] [id number] Temo Soriano MD Abdominal Pain; Vomiting Discharge [...] week 09/28/2022 How often do you attend zoroastrianism or mormon serv ices? Never 09/28/2022 Do you belong to any clubs o r organizations such as zoroastrianism groups, unions, fraternal or athletic groups, or [...] and heating? Not hard at all 10/18/2022 [facility] - Occupational Stress [...] slept in a halfway (including now)? No 10/18/2022 Sex and Gender Information Value Date Recorded Sex Assigned at Male 06/21/2024 7:21 PM MILL RECORDER Legal Sex Male 8:10 AM CDT Gender Identity Not on file Sexual Orientation Not on file Last Filed Vital Signs Vital Sign Reading Time Taken Comments Blood Pressure 118/73 06/21/2024 10:08 PM MILL RECORDER Pulse 92 06/21/2024 10:08 PM MILL RECORDER Temperature 36.2 C (97.1 F) 06/21/2024 7:28 PM MILL RECORDER Respiratory Rate 15 06/21/2024 10:0 8 PM MILL RECORDER Oxygen Saturation 99% 06/21/2024 10: 08 PM MILL RECORDER Inhaled Oxygen Concentration - - Weight 77.9 kg (171 lb 11.8 oz) 06/21/2024 7:28 PM MILL RECORDER Height 177.8 cm (5' 10 ) 06/21/2024 7:28 PM MILL RECORDER Body Mass Index 24.64 06/21/2024 7:28 PM MILL RECORDER Plan of Treatment Health Maintenance Due Date [...] discharge from hospital Lifestyle No Sintia Zhao, birth attendant * The patient is currently admitted. The information in this section might not be complete until the patient is discharged. Procedure Name Priority Date/Time Associated Diagnosis Comments CT ABD+PEL W CON STAT 06/21/2024 9:50 PM MILL RECORDER URINALYSIS, AUTO, COMPLETE STAT 06/21/2024 9:14 PM MILL RECORDER LIPASE STAT 06/21/2024 7:58 PM MILL RECORDER COMPREHENSIVE METABOLIC PANEL STAT 06/21/2024 7:34 PM MILL RECORDER CBC W/DIFF AUTOMATED STAT 06/21/2024 7:34 PM MILL RECORDER BASIC METABOLIC PANEL STAT 04/26/2024 11:[address] ABD+PEL W CON STAT 04/26/2024 9:37 PM MILL RECORDER DRUG SCREEN RAPID STAT 04/26/2024 8:3 0 PM MILL RECORDER URINALYSIS, AUTO, COMPLETE STAT 04/26/2024 8:30 PM MILL RECORDER LIPASE STAT 04/26/2024 7:44 PM MILL RECORDER TROPONIN, QUANT STAT 04/26/2024 7:44 PM MILL RECORDER COMPREHENSIVE METABOLIC PANEL STAT 04/26/2024 7:44 PM MILL RECORDER CBC W/DIFF AUTOMATED STAT 04/26/2024 7:44 PM MILL RECORDER from Last 3 Months Results * CT ABD+PEL W CON (06/21/2024 9:50 PM MILL RECORDER) Only the most recent of2 resultswithin the time period is included. Anatomical Region Laterality Modality Abdomen Computed Tomogra phy 06/21/2024 9:59 PM MILL RECORDER Impressions 06/21/2024 10:01 PM MILL RECORDER IMPRESSION: ===== 1. No acute abdominal or pelvic abnormalities. No specific CT findings to explain patient's symptoms. 2. Small inguinal hernias containing only fat. 3. Stable pneumobilia. Referred By: Interpreted By: Jayy De La Torre MD, 06/21/2024 9:59 PM Narrative 06/21/2024 10:01 PM MILL RECORDER [facility] [address] [facility] [place] [address] EXAMINATION: CT Abdomen and Pelvis with contrast [...] Jayy De La Torre MD - 06/21/2024 [facility] [address] [place] [address] EXAMINATION: CT Abdomen and Pelvis with contrast [...] (ABNORMAL) Urinalysis, Auto, Complete (06/21/2024 9:14 PM MILL RECORDER) Only the most recent of2 resultswithin the time period is included. COLOR (U) YELLOW 06/21/2024 9:38 PM [facility] TRANSPARENCY HAZY 06/21/2024 9:38 PM [facility] SPECIFIC GRAVITY (U) 1.015 1.000 - 1.030 06/21/2024 9:38 PM [facility] U PH 8.0 5.0 - 9.0 06/21/2024 9:38 PM [facility] LEUKOCYTES (U) NEGATIVE NEGATIVE 06/21/2024 9:38 PM [facility] NITRITES NEGATIVE NEGATIVE 06/21/2024 9:38 PM [facility] PROTEIN RANDOM (U) NEGATIVE NEGATIVE 06/21/2024 9:38 PM [facility] GLUCOSE (U) NEGATIVE NEGATIVE 06/21/2024 9:38 PM [facility] KETONES MG/DL (U) 1+(A) NEGATIVE 06/21/2024 9:38 PM [facility] BILIRUBIN (U) NEGATIVE NEGATIVE 06/21/2024 9:38 PM [facility] BLOOD (U) NEGATIVE NEGATIVE 06/21/2024 9:38 PM [facility] WBC/HPF 0-5 0 - 5 /HPF 06/21/2024 9:38 PM [facility] RBC/HPF 0-5 0 - 5 /HPF 06/21/2024 9:38 PM MILL RECORDER [facility] EPI/HPF FEW /HPF 06/21/2024 9:38 PM MILL RECORDER [facility] CRYSTALS (U) FEW /HPF 06/21/2024 9:38 PM MILL RECORDER [facility] Comment:AMORPHOUS MATERIAL BACTERIA (U) FEW /HPF 06/21/2024 9:38 PM MILL RECORDER [facility] URINE SPECIMEN OBTAINED BY CLEAN CATCH PROCEDURE / Unknown 06/21/2024 9:14 PM MILL RECORDER us Checo Condon MD URINE ORDERABLES Final Result Performing Organization Address City/[facility]/ZIP Co de Phone Number [facility] [address] [place] [address], [place] [phone] * LIPASE (06/21/2024 7:58 PM MILL RECORDER) Only the most recent of2 resultswithin the time period is included. LIPASE 61 16 - 77 UNITS/L 06/21/2024 8:30 PM MILL RECORDER [facility] 06/21/2024 7:58 PM MILL RECORDER us Checo Condon MD LABORATORY Final Result Performing Organization Address City/[facility]/ZIP Co de Phone Number [facility] [address] [place] [address], [place] [phone] * (ABNORMAL) COMPREHENSIVE METABOLIC PANEL (06/21/2024 7:34 PM MILL RECORDER) Only the most recent of2 resultswithin the time period is included. GLUCOSE 126(H) 70 - 99 MG/DL 06/21/2024 8:17 PM MILL RECORDER [facility] BUN 9 7 - 18 MG/DL 06/21/2024 8:17 PM MILL RECORDER [facility] CREATININE S/P/B 1.01 0.7 - 1.3 MG/DL 06/21/2024 8:17 PM [facility] SODIUM S/P/B 144 136 - 145 MMOL/L 06/21/2024 8:17 PM [facility] POTASSIUM S/P/B 3.8 3.5 - 5.1 MMOL/L 06/21/2024 8:17 PM [facility] CHLORIDE S/P/B 103 100 - 108 MMOL/L 06/21/2024 8:17 PM [facility] CO2 28.1 21 - 32 MMOL/L 06/21/2024 8:17 PM [facility] CALCIUM S/P/B 9.7 8.5 - 10.1 MG/DL 06/21/2024 8:17 PM [facility] BILIRUBIN TOTAL S/P/B 0.6 0.2 - 1.2 MG/DL 06/21/2024 8:17 PM [facility] TOTAL PROTEIN S/P/B 7.4 6.4 - 8.2 G/DL 06/21/2024 8:17 PM [facility] ALBUMIN S/P/B 4.5 3.4 - 5.0 G/DL 06/21/2024 8:17 PM [facility] AST 18 15 - 37 U/L 06/21/2024 8:17 PM [facility] ALT 26 16 - 60 U/L 06/21/2024 8:17 PM [facility] ALKALINE PHOSPHATASE S/P/B 85 50 - 136 U/L 06/21/2024 8:17 PM [facility] ANION GAP 12.9 5 - 15 MMOL/L 06/21/2024 8:17 PM [facility] BUN CREATININE RATIO 8.9 6 - 26 06/21/2024 8:17 PM [facility] A/G RATIO 1.6 1.0 - 2.0 RATIO 06/21/2024 8:17 PM [facility] GFR ESTIMATE >90 >90 ML/MIN/1.7 3 M2 06/21/2024 8:17 PM [facility] Comment: NOTE: eGFR is not calculated for patients <18 years of age. This is an estimated GFR calculation using the new CKD EPI creatinine equation without race and so does not require a correction factor for race. This estimated GFR should not be used for calculating drug doses. 06/21/2024 7:34 PM MILL RECORDER Checo Condon MD LABORATORY Final Result [facility] [address] [place] [address], * (ABNORMAL) CBC W/DIFF AUTOMATED (06/21/2024 7:34 PM MILL RECORDER) Only the most recent of2 resultswithin the time period is included. WBC 19.40(H) 4.4 - 11.0 x10'3/uL 06/21/2024 8:11 PM [facility] RBC 4.96 4.50 - 5.90 x10'6/uL 06/21/2024 8:11 PM [facility] HGB 13.6(L) 14.0 - 17.5 G/DL 06/21/2024 8:11 PM [facility] HCT 41.6 41.5 - 50.4 % 06/21/2024 8:11 PM [facility] MCV 83.9 80.0 - 96.0 FL 06/21/2024 8:11 PM [facility] MCH 27.4 26.5 - 31.4 PG 06/21/2024 8:11 PM [facility] MCHC 32.7 31.9 - 34.8 G/DL 06/21/2024 8:11 PM [facility] RDW 15.9(H) 12.3 - 14.3 % 06/21/2024 8:11 PM [facility] PLT 319 151 - 353 x10'3/uL 06/21/2024 8:11 PM [facility] MPV 10.7 9.7 - 11.9 FL 06/21/2024 8:11 PM [facility] RBC MORPHOLOGY NORMAL 06/21/2024 8:11 PM [facility] PLT MORPH. NORMAL 06/21/2024 8:11 PM [facility] WBC MORPHOLOGY NORMAL 06/21/2024 8:11 PM [facility] LYMPHOCYTES % 7.5(L) 15.8 - 45.0 % 06/21/2024 8:11 PM [facility] NEUTROPHILS % 87.0(H) 42.1 - 71.9 % 06/21/2024 8:11 PM [facility] MONOCYTES % 4.4(L) 5.7 - 12.5 % 06/21/2024 8:11 PM [facility] EOSINOPHILS 0.1 0.0 - 5.6 % 06/21/2024 8:11 PM [facility] BASOPHILS 0.3 0.0 - 1.3 % 06/21/2024 8:11 PM [facility] ABS. NEUTROPHILS 16.91(H) 1.40 - 6.00 x10'3/uL 06/21/2024 8:11 PM [facility] IMMATURE GRANS % 0.7(H) 0.0 - 0.5 % 06/21/2024 8:11 PM MILL RECORDER [facility] ABS. LYMPHOCYTES 1.45 0.80 - 4.70 x10'3/uL 06/21/2024 8:11 PM [facility] 06/21/2024 7:34 PM MILL RECORDER Checo Condon MD LABORATORY Final Result [facility] [address] [place] [address], * (ABNORMAL) BASIC METABOLIC PANEL (04/26/2024 11:52 PM MILL RECORDER) GLUCOSE 86 70 - 99 MG/DL 04/27/2024 12:07 AM [facility] BUN 7 7 - 18 MG/DL 04/27/2024 12:07 AM [facility] CREATININE S/P/B 1.06 0.7 - 1.3 MG/DL 04/27/2024 12:07 AM [facility] SODIUM S/P/B 144 136 - 145 MMOL/L 04/27/2024 12:07 AM [facility] POTASSIUM S/P/B 4.7 3.5 - 5.1 MMOL/L 04/27/2024 12:07 AM [facility] CHLORIDE S/P/B 108 100 - 108 MMOL/L 04/27/2024 12:07 AM [facility] CO2 26.9 21 - 32 MMOL/L 04/27/2024 12:07 AM [facility] CALCIUM S/P/B 9.0 8.5 - 10.1 MG/DL 04/27/2024 12:07 AM [facility] ANION GAP 9.1 5 - 15 MMOL/L 04/27/2024 12:07 AM [facility] BUN CREATININE RATIO 6.6 6 - 26 04/27/2024 12:07 AM [facility] GFR ESTIMATE 90(L) >90 ML/MIN/1.7 3 M2 04/27/2024 12:07 AM [facility] Comment: NOTE: eGFR is not calculated for patients <18 years of age. This is an estimated GFR calculation using the new CKD EPI creatinine equation without race and so does not require a correction factor for race. This estimated GFR should not be used for calculating drug doses. 04/26/2024 11:5 2 PM MILL RECORDER us Temo Soriano MD LABORATORY Final Resu lt [facility] [address] [place] [address], [place] [phone] * (ABNORMAL) DRUG SCREEN RAPID (04/26/2024 8:30 PM MILL RECORDER) Pathologist [facility] AMPHETAMINE (U) NONE DETECTED NONE DETECTED 04/26/2024 8:45 PM MILL RECORDER [facility] BARBITURATES SCREEN (U) DETECTED(A) NONE DETECTED 04/26/2024 8:45 PM [facility] BENZODIAZEPINES SCREEN (U) DETECTED(A) NONE DETECTED 04/26/2024 8:45 PM MILL RECORDER [facility] BUPRENORPHINE SCREEN (U) NONE DETECTED NONE DETECTED 04/26/2024 8:45 PM MILL RECORDER [facility] COCAINE METABOLITES (U) NONE DETECTED NONE DETECTED 04/26/2024 8:45 PM MILL RECORDER [facility] METHAMPHETAMINE (U) NONE DETECTED NONE DETECTED 04/26/2024 8:45 PM MILL RECORDER [facility] METHADONE (U) NONE DETECTED NONE DETECTED 04/26/2024 8:45 PM MILL RECORDER [facility] OPIATE SCREEN (U) DETECTED(A) NONE DETECTED 04/26/2024 8:45 PM MILL RECORDER [facility] OXYCODONE SCREEN (U) NONE DETECTED NONE DETECTED 04/26/2024 8:45 PM MILL RECORDER [facility] PHENCYCLIDINE PCP (U) NONE DETECTED NONE DETECTED 04/26/2024 8:45 PM MILL RECORDER [facility] CANNABINOIDS SCREEN (U) DETECTED(A) NONE DETECTED 04/26/2024 8:45 PM MILL RECORDER [facility] TRICYCLIC ANTIDEPRESSANT SCREEN (U) NONE DETECTED NONE DETECTED 04/26/2024 8:45 PM MILL RECORDER [facility] Comment: NOTE: RESULTS OF [...] URINE SPECIMEN / Unknown 04/26/2024 8:30 PM MILL RECORDER us Temo Soriano MD URINE ORDERABLES Final Res ult [facility] [address] [place] [address], [place] [phone] * TROPONIN, QUANT (04/26/2024 7:44 PM MILL RECORDER) TROPONIN I HIGH SENSITIVITY 7 0 - 75 ng/L 04/26/2024 8:09 PM MILL RECORDER [facility] Comment: HIGH DOSES OF BIOTIN, TROPONIN-SPECIFIC AUTOANTIBODIES, AND ANTIBODY THERAPY CONTAINING HAMA MAY INTERFERE WITH THIS TEST RESULT. CORRELATION TO CLINICAL HISTORY AND PRESENTATION RECOMMENDED. 04/26/2024 7:44 PM MILL RECORDER us Temo Soriano MD LABORATORY Final Resu lt Performing Organization Address City/State/[facility] Co de Phone Number [facility] [address] [place] [address], from Last 3 Months Insurance [employer] [...] 6:07 PM 10/19/2019 4:11 PM Care Teams Heel Seat Flap Stapler Relationship Specialty Start Date End Date Td Lopez MD PCP - General FAMILY PRACTICE 08/18/19
--- OUTSIDE RECORDS SUMMARY | 2024-06-21 22:24 | XMS_ITS | Patient Health Summary ---
Author Organization [facility] Address [address] [place] [address] Care Team Providers Care Rotary Drier Name Role Phone Alee Zhao MD Primary Care Provider [phone] Note from [facility],non-owned Affiliates and Associated Physician Practices is amultiple site organization consisting of ambulatory clinics and hospital sitesin [place], [place], [place] and [place]. This disclosure is being madepursuant to the Care Everywhere program and may not contain all information available regarding this patient. Last updated 18.[facility] [employer] Allergies * Doxycycline(Nausea) -Low Criticality * Metoclopramide(Other) [...] Comments Blood Pressure 120/71 03/17/2019 5:03 PM SENIOR NUCLEAR MEDICINE TECHNOLOGIST Pulse 75 03/17/2019 5:03 PM SENIOR NUCLEAR MEDICINE TECHNOLOGIST Temperature 36.9 C (98.4 F) 03/17/2019 2:00 PM SENIOR NUCLEAR MEDICINE TECHNOLOGIST Respiratory Rate 17 03/17/2019 5:03 PM SENIOR NUCLEAR MEDICINE TECHNOLOGIST Oxygen Saturation 99% 03/17/2019 5:03 PM SENIOR NUCLEAR MEDICINE TECHNOLOGIST Inhaled Oxygen Concentration - - Weight 77.1 kg (170 lb) 03/17/2019 2:00 PM SENIOR NUCLEAR MEDICINE TECHNOLOGIST Height 177.8 cm (5' 10 ) 03/17/2019 2:00 PM SENIOR NUCLEAR MEDICINE TECHNOLOGIST Body Mass Index 24.39 03/17/2019 2:00 PM SENIOR NUCLEAR MEDICINE TECHNOLOGIST Procedures * CARDIAC EKG ORDER(Performed 04/19/2019) * [...] * CARDIAC EKG ORDER (04/19/2019 2:42 PM SENIOR NUCLEAR MEDICINE TECHNOLOGIST) Only the most recent of2 resultswithin the time period is included. Narrative 04/19/2019 2:42 PM SENIOR NUCLEAR MEDICINE TECHNOLOGIST Ordered by an unspecified provider. Scanned Document CARDIAC SERVICES ORD ERABLES * (ABNORMAL) URINALYSIS W/MICROSCOPIC NO CULTURE (03/17/2019 5:36 PM SENIOR NUCLEAR MEDICINE TECHNOLOGIST) Only the most recent of2 resultswithin the time period is included. Color UA Yellow Straw, Yellow, Colorless 03/17/2019 5:50 PM [facility] Clarity UA Slt Cloudy Clear, Slt Cloudy 03/17/2019 5:50 PM [facility] Specific [place] UA 1.012 1.005 - 1.030 03/17/2019 5:50 PM [facility] pH UA 9.0(H) 5.0 - 8.0 pH 03/17/2019 5:50 PM [facility] Protein UA Negative Negative mg/dL 03/17/2019 5:50 PM [facility] Glucose UA Negative Negative mg/dL 03/17/2019 5:50 PM [facility] Ketone UA Trace(A) Negative mg/dL 03/17/2019 5:50 PM [facility] Bilirubin UA Negative Negative mg/dL 03/17/2019 5:50 PM [facility] Blood UA Negative Negative 03/17/2019 5:50 PM [facility] Nitrite UA Negative Negative 03/17/2019 5:50 PM [facility] Leukocyte Esterase Negative Negative 03/17/2019 5:50 PM [facility] Urobilinogen UA Negative Negative mg/dL 03/17/2019 5:50 PM [facility] RBC UA 0-2 None Seen, 0-2, 3-5 /HPF 03/17/2019 5:50 PM [facility] WBC UA 0-5 None Seen, 0-5 /HPF 03/17/2019 5:50 PM [facility] Squamous Epithelial Cells UA None Seen None Seen, 0-2 /HPF 03/17/2019 5:50 PM [facility] Urine URINE SPECIMEN OBTAINED BY CLEAN CATCH PROCEDURE / Unknown Collection / Unknown 03/17/2019 5:36 PM SENIOR NUCLEAR MEDICINE TECHNOLOGIST 03/17/2019 5:44 PM SENIOR NUCLEAR MEDICINE TECHNOLOGIST Narrative [facility] - 03/17/2019 5:50 PM SENIOR NUCLEAR MEDICINE TECHNOLOGIST Lucia Thompson PA-C LAB - URINAL YSIS ORDERABLES [facility] [address] [place] [address] * (ABNORMAL) DRUG SCREEN TOX URINE PANEL (03/17/2019 5:36 PM SENIOR NUCLEAR MEDICINE TECHNOLOGIST) Amphetamines Screen Urine Negative Negative : < 1000 ng/mL 03/17/2019 6:05 PM [facility] Barbiturates Screen Urine Negative Negative : < 200 ng/mL 03/17/2019 6:05 PM [facility] Benzodiazepine Screen Urine Negative Negative : < 200 ng/mL 03/17/2019 6:05 PM [facility] Opiates Urine Positive(A) Negative : < 300 ng/mL 03/17/2019 6:05 PM [facility] Comment: Positive urine opiate screening results should be confirmed by another generally accepted non-immunological method such as gas chromatography or mass spectrometry. Cocaine Metabolites Urine Negative Negative : < 300 ng/mL 03/17/2019 6:05 PM [facility] Phencyclidine Screen Urine Negative Negative : < 25 ng/ml 03/17/2019 6:05 PM [facility] Cannabinoids Screen Urine Positive(A) Negative : <50 ng/mL 03/17/2019 6:05 PM [facility] Comment: Positive urine cannabinoids (THC) screening results should be confirmed by another generally accepted non-immunological method such as gas chromatography or mass spectrometry. Methadone Screen Urine Negative Negative : < 300 ng/mL 03/17/2019 6:05 PM [facility] Fentanyl Screen Urine Negative Negative : <1.0 ng/mL 03/17/2019 6:05 PM [facility] Urine URINE / Unknown Collection / Unknown 03/17/2019 5:36 PM SENIOR NUCLEAR MEDICINE TECHNOLOGIST 03/17/2019 5:44 PM SENIOR NUCLEAR MEDICINE TECHNOLOGIST Narrative [facility] - 03/17/2019 6:05 PM SENIOR NUCLEAR MEDICINE TECHNOLOGIST The Urine Toxicology Screening Panel does not screen for Propoxyphene, Meprobamate, Carisoprodol, Trazodone, rjzn-rgz-zwonade medications and/or volatiles (Acetone, Isopropanol, Methanol or Ethylene Glycol). Ethanol, Salicylate, Acetaminophen, Tricyclic Antidepressants and several therapeutic drugs may be individually assayed in serum or plasma specimen. Toxicology testing by the [facility] is an aid to medical diagnosis and treatment of patients. No documented chain of custody was maintained. Results are intended to be used for clinical purposes only. Morena Ulrich MD LAB - URINE CHEMISTR Y ORDERABLES [address] [phone] * EKG 12-LEAD (03/17/2019 4:39 PM SENIOR NUCLEAR MEDICINE TECHNOLOGIST) Ventricular Rate 61 BPM [facility] MUSE Atrial Rate 61 BPM [facility] MUSE P-R Interval 124 ms [facility] MUSE QRS Duration ms 110 ms [facility] MUSE Q-T Interval ms 410 ms [facility] MUSE QTC Calculation (Bezet) 412 ms [facility] MUSE Calculated P [place] 41 degrees SL MUSE Calculated R [place] 43 degrees SL MUSE Calculated T [place] 15 degrees [facility] MUSE Interpretation EKG NORMAL SINUS RHYTHM INCOMPLETE RIGHT BUNDLE BRANCH BLOCK BORDERLINE ECG NO PREVIOUS ECGS AVAILABLE Confirmed by Roberto Sullivan ([id number]), editor farm journal VERNON ANTONY ([id number]) on 04/07/2019 2:19:17 PM [facility] MUSE 03/17/2019 4:39 PM SENIOR NUCLEAR MEDICINE TECHNOLOGIST 04/07/2019 2:19 PM SENIOR NUCLEAR MEDICINE TECHNOLOGIST Morena Ulrich MD ECG ORDERABLES [facility] MUSE * TROPONIN I (03/17/2019 4:35 PM SENIOR NUCLEAR MEDICINE TECHNOLOGIST) Troponin I <0.010 <0.032 ng/mL 03/17/2019 5:26 PM [facility] Blood BLOOD SPECIMEN / Unknown Venipuncture / Unknown 03/17/2019 4:35 PM SENIOR NUCLEAR MEDICINE TECHNOLOGIST 03/17/2019 4:58 PM SENIOR NUCLEAR MEDICINE TECHNOLOGIST Morena Ulrich MD LAB - CHEMISTRY ORDE RABLES [address] [phone] * (ABNORMAL) CBC W AUTO DIFFERENTIAL (03/17/2019 3:49 PM SENIOR NUCLEAR MEDICINE TECHNOLOGIST) Only the most recent of8 resultswithin the time period is included. WBC 15.7(H) 3.5 - 10.5 10 3/uL 03/17/2019 4:00 PM [facility] RBC 4.82 4.30 - 5.70 10 6/uL 03/17/2019 4:00 PM [facility] Hemoglobin 14.9 13.5 - 17.5 g/dL 03/17/2019 4:00 PM [facility] Hematocrit 43.5 39.0 - 50.0 % 03/17/2019 4:00 PM [facility] MCV 90.2 81.0 - 97.0 fL 03/17/2019 4:00 PM [facility] MCH 30.9 28.0 - 34.0 pg 03/17/2019 4:00 PM [facility] MCHC 34.3 32.0 - 36.0 g/dL 03/17/2019 4:00 PM [facility] Platelet Count 261 150 - 400 10 3/uL 03/17/2019 4:00 PM [facility] RDW-SD 48.0 36.0 - 50.0 fL 03/17/2019 4:00 PM [facility] RDW-CV 14.5 11.2 - 14.8 % 03/17/2019 4:00 PM [facility] MPV 9.6 9.3 - 12.8 fL 03/17/2019 4:00 PM [facility] nRBC Absolute 0.00 0 10 3/uL 03/17/2019 4:00 PM [facility] nRBC Auto 0.0 0 /100 WBC 03/17/2019 4:00 PM [facility] Neutrophils % 88.6(H) 35.0 - 70.0 % 03/17/2019 4:00 PM [facility] Lymphocytes % 5.8(L) 19.7 - 55.1 % 03/17/2019 4:00 PM [facility] Monocytes % 4.5 3.0 - 15.0 % 03/17/2019 4:00 PM [facility] Eosinophils % 0.2 0.0 - 6.0 % 03/17/2019 4:00 PM [facility] Basophil % 0.3 0.0 - 1.5 % 03/17/2019 4:00 PM [facility] Neutrophils Absolute 13.9(H) 1.6 - 7.0 10 3/uL 03/17/2019 4:00 PM [facility] Lymphocyte Absolute 0.9 0.8 - 2.9 10 3/uL 03/17/2019 4:00 PM [facility] Monocytes Absolute 0.71(H) 0.14 - 0.66 10 3/uL 03/17/2019 4:00 PM [facility] Eosinophils Absolute 0.03 0.00 - 0.45 10 3/uL 03/17/2019 4:00 PM [facility] Basophils Absolute 0.04 0.00 - 0.06 10 3/uL 03/17/2019 4:00 PM [facility] Immature Granulocytes % 0.6 0.0 - 1.0 % 03/17/2019 4:00 PM [facility] Blood BLOOD SPECIMEN / Unknown Venipuncture / Unknown 03/17/2019 3:49 PM SENIOR NUCLEAR MEDICINE TECHNOLOGIST 03/17/2019 3:56 PM SENIOR NUCLEAR MEDICINE TECHNOLOGIST Kailash Dempsey MD LAB - HEMATOLOGY ORD ERABLES [facility] [address] [phone] * (ABNORMAL) COMPREHENSIVE METABOLIC PANEL (03/17/2019 3:49 PM [facility]) Only the most recent of5 resultswithin the time period is included. BUN 7 7 - 26 mg/dL 03/17/2019 4:13 PM [facility] Creatinine 0.9 0.6 - 1.2 mg/dL 03/17/2019 4:13 PM [facility] Sodium 141 136 - 145 mmol/L 03/17/2019 4:13 PM [facility] Potassium 4.2 3.5 - 4.5 mmol/L 03/17/2019 4:13 PM [facility] Chloride 106 98 - 107 mmol/L 03/17/2019 4:13 PM [facility] CO2 22 22 - 29 mmol/L 03/17/2019 4:13 PM [facility] Glucose 117(H) 70 - 115 mg/dL 03/17/2019 4:13 PM [facility] Calcium 9.8 8.4 - 10.2 mg/dL 03/17/2019 4:13 PM [facility] Protein Total 7.2 6.0 - 8.3 g/dL 03/17/2019 4:13 PM [facility] Albumin 4.2 3.4 - 5.0 g/dL 03/17/2019 4:13 PM [facility] Bilirubin Total 0.4 0.2 - 1.2 mg/dL 03/17/2019 4:13 PM [facility] Alkaline Phosphatase 81 40 - 150 Units/L 03/17/2019 4:13 PM [facility] ALT 18 0 - 55 Units/L 03/17/2019 4:13 PM [facility] AST 17 5 - 34 Units/L 03/17/2019 4:13 PM [facility] Anion Gap 17 8 - 18 03/17/2019 4:13 PM [facility] BUN/Creatinine Ratio 8 7 - 23 03/17/2019 4:13 PM [facility] Osmolality Calculated 291 270 - 300 mOsm/kg 03/17/2019 4:13 PM [facility] Albumin/Globulin Ratio 1.4 1.1 - 2.3 03/17/2019 4:13 PM [facility] eGFR >60 >60 mL/min/1.7 3 m2 03/17/2019 4:13 PM SENIOR NUCLEAR MEDICINE TECHNOLOGIST [facility] Blood BLOOD SPECIMEN / Unknown Venipuncture / Unknown 03/17/2019 3:49 PM SENIOR NUCLEAR MEDICINE TECHNOLOGIST 03/17/2019 3:56 PM SENIOR NUCLEAR MEDICINE TECHNOLOGIST Kailash Dempsey MD LAB - CHEMISTRY ABDOUL OCONNORLESLIE Performing Organization Address [facility]/[place] [address], [facility] [phone] * LIPASE BLOOD (03/17/2019 3:49 PM SENIOR NUCLEAR MEDICINE TECHNOLOGIST) Only the most recent of4 resultswithin the time period is included. Lipase 21 8 - 78 Units/L 03/17/2019 4:13 PM SENIOR NUCLEAR MEDICINE TECHNOLOGIST [facility] Blood BLOOD SPECIMEN / Unknown Venipuncture / Unknown 03/17/2019 3:49 PM SENIOR NUCLEAR MEDICINE TECHNOLOGIST 03/17/2019 3:56 PM SENIOR NUCLEAR MEDICINE TECHNOLOGIST Kailash Dempsey MD LAB - CHEMISTRY ABDOUL ESTRELLA Performing Organization Address [facility] [place] [address], [facility] [phone] * CT ABDOMEN PELVIS W CONTRAST (01/23/2019 [...] or pelvis. Dictated by Jude Long M.D. (financial institution president) I, Dr. MICHELLE GONZALES M.D. have personally [...] or pelvis. Dictated by Jude Long M.D. (financial institution president) I, Dr. MICHELLE GONZALES M.D. have personally reviewed and interpretedthis examination/study. This report was electronically signed by MICHELLE GONZALES M.D. on 01/24/2019 8:11 AM . Lucia Thompson PA-C CT ORDERABLE S * CULTURE URINE (01/23/2019 5:28 PM CDT) Culture Urine No growth (<100 CFU/mL) SHORTY 01/25/2019 6:52 AM CDT [facility] Urine URINE SPECIMEN OBTAINED BY CLEAN CATCH PROCEDURE / Unknown Collection / Unknown 01/23/2019 5:28 PM CDT 01/23/2019 5:32 PM CDT Lucia Thompson PA-C LAB - MICROB IOLOGY ORDERABLES [facility] [address] [place] [address], [facility] [phone] * (ABNORMAL) URINALYSIS REFLEX TO MICROSCOPIC NO CULTURE (03/27/2018 10:54 PM SENIOR NUCLEAR MEDICINE TECHNOLOGIST) Only the most recent of2 resultswithin the time period is included. Color UA Yellow Straw, Yellow, Colorless, Light Yellow 03/27/2018 11:08 PM [facility] Clarity UA Hazy(A) Clear 03/27/2018 11:08 PM [facility] Specific [place] UA 1.013 1.001 - 1.030 03/27/2018 11:08 PM [facility] pH UA 8.0 5.0 - 8.0 03/27/2018 11:08 PM [facility] Protein UA Negative <=20 mg/dL 03/27/2018 11:08 PM [facility] Glucose UA Negative Negative mg/dL 03/27/2018 11:08 PM [facility] Ketone UA 80(A) Negative mg/dL 03/27/2018 11:08 PM [facility] Bilirubin UA Negative Negative mg/dL 03/27/2018 11:08 PM [facility] Blood UA Negative Negative 03/27/2018 11:08 PM [facility] Nitrite UA Negative Negative 03/27/2018 11:08 PM [facility] Leukocyte Esterase Negative Negative 03/27/2018 11:08 PM [facility] Urobilinogen UA <2.0 <2.0 mg/dL 8 11:08 PM [facility] RBC UA 2 0 - 8 /HPF 03/27/2018 11:08 PM [facility] WBC UA 1 0 - 2 /HPF 03/27/2018 11:08 PM [facility] Mucus UA Few(A) None /LPF 03/27/2018 11:08 PM [facility] Urine URINE SPECIMEN OBTAINED BY CLEAN CATCH PROCEDURE / Unknown Collection / Unknown 03/27/2018 10:54 PM SENIOR NUCLEAR MEDICINE TECHNOLOGIST 03/27/2018 10:58 PM SENIOR NUCLEAR MEDICINE TECHNOLOGIST Davi Patrick MD LAB - URINALYSIS ORD ERABLES [address] [phone] * HIV-1 HIV-2 ANTIGEN/ANTIBODY (03/27/2018 9:12 PM SENIOR NUCLEAR MEDICINE TECHNOLOGIST) HIV Antigen/Antibod y 1 & 2 Non-reacti ve Non-react nemesio 03/27/2018 10:17 PM SENIOR NUCLEAR MEDICINE TECHNOLOGIST [facility] Comment: Neither HIV-1 p24 Antigen nor HIV-1/HIV-2 Antibodies are detected. Blood BLOOD SPECIMEN / Unknown Venipuncture / Unknown 03/27/2018 9:12 PM SENIOR NUCLEAR MEDICINE TECHNOLOGIST 03/27/2018 9:21 PM SENIOR NUCLEAR MEDICINE TECHNOLOGIST Davi Patrick MD LAB - HEMATOLOGY ORD ERABLES [address] [phone] * HEPATITIS C AB SCREEN RFLX NAAT QUANT (03/27/2018 9:12 PM SENIOR NUCLEAR MEDICINE TECHNOLOGIST) [facility] Hepatitis C Antibody Non-react nemesio Non-reac tive 03/27/2018 10:20 PM SENIOR NUCLEAR MEDICINE TECHNOLOGIST [facility] Comment: Hepatitis C Antibody screen indicates no serologic evidence of past or current infection with Hepatitis C Virus. Patients with unexplained liver disease who are immunocompromised or suspected of having acute Hepatitis C infection may benefit from Nucleic Acid Test (RINKU) for Hepatitis C Viral RNA to confirm Hepatitis C status. Blood BLOOD SPECIMEN / Unknown Venipuncture / Unknown 03/27/2018 9:12 PM SENIOR NUCLEAR MEDICINE TECHNOLOGIST 03/27/2018 9:21 PM SENIOR NUCLEAR MEDICINE TECHNOLOGIST Davi Patrick MD LAB - CHEMISTRY ORDE SAMEER Performing Organization Address City/[facility]/ZIP Co de Phone Number [address] [phone] * (ABNORMAL) BASIC METABOLIC PANEL (CALCIUM TOTAL) (06/12/2017 3:54 AM SENIOR NUCLEAR MEDICINE TECHNOLOGIST) [facility] BUN 9 7 - 26 mg/dL [facility] Creatinine 0.9 0.6 - 1.2 mg/dL [facility] Sodium 138 136 - 145 mmol/L [facility] Potassium 3.4(L) 3.5 - 4.5 mmol/L [facility] Chloride 102 98 - 107 mmol/L [facility] CO2 27 22 - 29 mmol/L [facility] Glucose 84 70 - 115 mg/dL [facility] Calcium 8.9 8.4 - 10.2 mg/dL [facility] Anion Gap 12 8 - 18 [facility] BUN/Creatinine Ratio 10 7 - 23 [facility] Osmolality Calculated 284 270 - 300 mOsm/kg [facility] eGFR >60 >60 mL/min/1.7 3 m2 [facility] Blood specimen (specimen) BLOOD SPECIMEN / Unknown 06/12/2017 3:54 AM SENIOR NUCLEAR MEDICINE TECHNOLOGIST 06/12/2017 4:14 AM SENIOR NUCLEAR MEDICINE TECHNOLOGIST Juan Carlos Morfin MD LAB - CHEMISTRY ABDOUL ESTRELLA [facility] Organization Address City/State/ZIP Co de Phone Number [facility] [address] [phone] Care Teams Rotary Drier Relationship Specialty Start Date End Date Alee Zhao MD [address] [place] [phone] PCP - General Family Medicine 03/25/18
--- OUTSIDE RECORDS SUMMARY | 2024-06-21 22:24 | XMS_ITS | Referral Summary ---
Author Organization [facility] Address [address] [facility] [place] [address] Care Team Providers Care Fire Hose Curer Name Role Phone Alee Zhao MD Primary Care Provider [phone] Source Comments [facility],non-owned Affiliates and Associated Physician Practices is amultiple site organization consisting of ambulatory clinics and hospital sitesin [place], [place], [place] and [place]. This disclosure is being madepursuant to the Care Everywhere program and may not contain all information available regarding this patient. Last updated 18.[facility] Allergies Active Allergy Reactions Criticality Noted Date [...] Comments Blood Pressure 120/71 03/17/2019 5:03 PM [employer] Pulse 75 03/17/2019 5:03 PM [employer] Temperature 36.9 C (98.4 F) 03/17/2019 2:00 PM [employer] Respiratory Rate 17 03/17/2019 5:03 PM [employer] Oxygen Saturation 99% 03/17/2019 5:03 PM [employer] Inhaled Oxygen Concentration - - Weight 77.1 kg (170 lb) 03/17/2019 2:00 PM [employer] Height 177.8 cm (5' 10 ) 03/17/2019 2:00 PM [employer] Body Mass Index 24.39 03/17/2019 2:00 PM [employer] Plan of Treatment Not on file Procedures Procedure Name Priority Date/Time Associated Diagnosis Comments HEPATITIS C AB SCREEN RFLX NAAT QUANT STAT 03/27/2018 9:12 PM [employer] HIV-1 HIV-2 ANTIGEN/ANTIBODY STAT 03/27/2018 9:12 PM [employer]I TR[employer] DRIVER from Last 3 Months or Most Recently Relevant to Health Maintenance Results * HIV-1 HIV-2 ANTIGEN/ANTIBODY (03/27/2018 9:12 PM [employer] DRIVER) Pathologist [facility] HIV Antigen/Antibod y 1 & 2 Non-reacti ve Non-react nemesio 03/27/2018 10:17 PM [employer]I TRUCK DRIVER [facility] Comment: Neither HIV-1 p24 Antigen nor HIV-1/HIV-2 Antibodies are detected. Blood BLOOD SPECIMEN / Unknown Venipuncture / Unknown 03/27/2018 9:12 PM [employer] 03/27/2018 9:21 PM [employer]IVER Davi Patrick MD LAB - HEMATOLOGY ORD ERABLES [facility] [address] [place] [address] * HEPATITIS C AB SCREEN RFLX NAAT QUANT (03/27/2018 9:12 PM [employer] TR[employer] DRIVER) Pathologist [facility] Hepatitis C Antibody Non-react nemesio Non-reac tisherice 03/27/2018 10:20 PM [employer]I TRUCK DRIVER [facility] Comment: Hepatitis C Antibody screen [...] Unknown Venipuncture / Unknown 03/27/2018 9:12 PM [employer]IVER 03/27/2018 9:21 PM [employer]IVER Davi Patrick MD LAB - CHEMISTRY ABDOUL ESTRELLA [facility] [address] [phone] from Last 3 Months or Most Recently Relevant to Health Maintenance Care Teams Fire Hose Curer Relationship Specialty Start Date End Date Alee Zhao MD [address] [place] [address] [address] [place] [phone] PCP - General Family Medicine 03/25/18
--- OUTSIDE RECORDS SUMMARY | 2024-06-21 22:24 | XMS_ITS | Referral Summary ---
Author Organization [facility] Address [address] [place] [address] Care Team Providers Care Framer Name Role Phone Td Lopez MD Primary Care Provider + Angie Woodard MD Unavailable [phone] Vimal Woodruff MD Unavailable [phone] Encounters Date Type Department Care Team Description 06/19/2024 7:49 PM MACHINE OPERATOR ASSISTANT - 06/19/2024 11:01 PM [facility] [[email or web address] Emergency [facility] Emergency Department [address] [place] [address] Terri Fuentes MD Chronic abdominal pain (Primary Dx); Nausea and vomiting, unspecified vomiting type; Leukocytosis, unspecified type Discharge Disposition: Discharge to home or self care 05/30/[address] [facility] Medical Office [facility] 1 OP Physical Therapy [address] [place] [address] Clem Traylor, MANAGER UROLOGY No Show 05/26/2024 7:15 AM MACHINE OPERATOR ASSISTANT Therapy [facility] Medical Office [facility] 1 OP Physical Therapy [address] [place] [address] Nelda Perez, PT Neck pain (Primary Dx) 05/26/2024 7:00 AM MACHINE OPERATOR ASSISTANT Therapy [facility] Medical Office [facility] 1 OP Physical Therapy [address] [place] [address] Yuliya Fernández, MANAGER UROLOGY Neck pain (Primary Dx) 05/20/2024 4:35 PM MACHINE OPERATOR ASSISTANT - 05/20/2024 9:22 PM [facility] [[email or web address]] Emergency [address] [address] Abdominal pain (Primary Dx) Discharge Disposition: Discharge to home or self care 05/19/2024 12:45 PM MACHINE OPERATOR ASSISTANT Therapy [facility] Medical Office [facility] 1 OP Physical Therapy [address] [place] [address] Clem Traylor, MANAGER UROLOGY Neck pain (Primary Dx) 05/12/2024 7:45 AM MACHINE OPERATOR ASSISTANT Therapy [facility] Medical Office [facility] 1 OP Physical Therapy [address] [place] [phone] Clem Traylor, MANAGER UROLOGY Neck pain (Primary Dx) 05/05/2024 7:45 AM [facility] [[email or web address]] Therapy [facility] Medical Office [facility] 1 OP Physical Therapy [address] [place] [address] Clem Traylor, MANAGER UROLOGY Neck pain (Primary Dx) 04/27/[address] [facility] Office [facility] 1 OP Physical Therapy [address] [place] [address] Clem Traylor, MANAGER UROLOGY No Show 04/25/2024 12:45 PM [facility] [[email or web address]] Therapy [facility] Medical Office [facility] 1 OP Physical Therapy [address] [place] [address] Paige Mendez, MANAGER UROLOGY Neck pain (Primary Dx) 04/20/2024 2:56 PM MACHINE OPERATOR ASSISTANT - 04/20/2024 6:30 PM [facility] [[email or web address] Emergency [facility] Emergency Department [address] [place] [address] Blue Warren MD Chronic abdominal pain (Primary Dx) Discharge Disposition: Discharge to home or self care 04/15/[address] [facility] Medical Office [facility] 1 OP Physical Therapy [address] [place] [phone] 04/15/2024 7:45 AM MACHINE OPERATOR ASSISTANT Therapy [facility] Medical Office [facility] 1 OP Physical Therapy [address] [place] [address] [address] [place] [address] Isreal Healy, PT Neck pain (Primary Dx) 04/01/2024 Telephone [facility] Primary Care [address] [place] [address] [address] [place] [phone] Td Lopez MD 03/25/2024 11:26 AM MACHINE OPERATOR ASSISTANT - 03/25/2024 11:59 PM MACHINE OPERATOR ASSISTANT Hospital Encounter [facility] 1 DIAG IMG [address] [place] [address] Neck pain Discharge Disposition: Discharge to home or self care 03/25/2024 10:45 AM MACHINE OPERATOR ASSISTANT Office Visit [facility] [address] [place] [address] [address] [place] [phone] Td Lopez MD Other chronic pancreatitis (HCC) [...] 03/25/2024 Assessment & Plan (03/25/2024 11:50 AM MACHINE OPERATOR ASSISTANT): - suspect just muscle strain - will [...] - f/u with GI Current use of chcf anticoagulation 023 Assessment & Plan (09/25/2023 12:23 PM CDT): - stable - continue eliquis Assessment & Plan (03/20/2023 11:08 AM MACHINE OPERATOR ASSISTANT): - restart eliquis due to life long need for anticoagulation History of thrombosis 03/20/2023 Assessment & Plan (09/25/2023 12:22 PM CDT): - stable - continue eliquis Assessment & Plan (03/20/2023 11:08 AM MACHINE OPERATOR ASSISTANT): - restart eliquis due to life long [...] famotidine Assessment & Plan (03/20/2023 11:08 AM MACHINE OPERATOR ASSISTANT): - stable - continue current medication Renal [...] eval. Assessment & Plan (03/25/2024 11:49 AM MACHINE OPERATOR ASSISTANT): - ref to derm for eval Drug abuse and dependence (CMS/HCC) 02/12/2021 Overview (01/10/2023): Last Assessment & Plan: - using mariajuana occasionally; has had frequent rx for opioids in ER - pt claims at least several days since last ER visit with narcotics given - record review suggests at least 2 wks - will check UDS Chronic pancreatitis ([facility]) 12/21/2020 Overview (02/03/2023): Last Assessment & Plan: - stable today - continue current medications - f/u with Dr Woodard as planned - encouraged pt to come to clinic instead of going to ER next time he has abdominal pain Assessment & Plan (03/25/2024 11:49 AM MACHINE OPERATOR ASSISTANT): - poor control - continue hyosciamine, famotidine, zofran - ref to GI for continued treatment Assessment & Plan (03/20/2023 11:07 AM MACHINE OPERATOR ASSISTANT): - stable - continue current medication Duodenal [...] medication Assessment & Plan (07/15/2019 11:44 AM MACHINE OPERATOR ASSISTANT): - stable - continue creon Annual physical [...] able Assessment & Plan (07/15/2019 11:46 AM MACHINE OPERATOR ASSISTANT): - encourage healthy diet, exercise - check labs - encouraged quitting smoking 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 Assessment & Plan (07/15/2019 11:37 AM MACHINE OPERATOR ASSISTANT): - encouraged pt to quit smoking Abdominal [...] GI Assessment & Plan (03/20/2023 11:07 AM MACHINE OPERATOR ASSISTANT): - stable - continue current medication per [...] 09/17/202209/08 Assessment & Plan (03/20/2023 11:08 AM MACHINE OPERATOR ASSISTANT): - stable off meds - will monitor [...] x2 Acute on chronic pancreatitis ([facility]) 06/15/2021 09/25/2023 Hyperleukocytosis 06/15/2021 03/18/2023 Drug abuse and dependence ([facility]) 02/12/2021 03/18/2023 Assessment & Plan (02/12/2021 11:22 [...] 09/25/2023 Assessment & Plan (03/26/2021 11:41 AM MACHINE OPERATOR ASSISTANT): - stable today - continue current medications [...] lexapro Assessment & Plan (07/15/2019 11:38 AM MACHINE OPERATOR ASSISTANT): - stable - continue current plan Gastroesophageal reflux dise ase without esophagitis 07/15/2019 03/18/2023 Overview (07/15/2019): - GERD managed by Dr Woodard - Pt on omeprazole and carafate for sx control Assessment & Plan (01/01/2021 12:09 PM CDT): - stable - continue current medication Assessment & Plan (02/07/2020 2:32 PM CDT): - stable - continue current medication Assessment & Plan (07/15/2019 11:38 AM MACHINE OPERATOR ASSISTANT): - stable - continue omeprazole and carafate [...] prn Assessment & Plan (07/15/2019 11:44 AM MACHINE OPERATOR ASSISTANT): - stable - continue bentyl and amitriptyline per GI recs Viral illness 07/08/2019 02/12/2021 Assessment & Plan (07/09/2019 9:12 AM MACHINE OPERATOR ASSISTANT): Medrol Dosepak as directed. Recommended Mucinex plain [...] (09/17/2018): Added automatically from request for surgery [id number] Assessment & Plan (02/12/2021 11:23 AM CDT): - encouraged pt to f/u with new GI - continue hyoscyamine Assessment & Plan (01/01/2021 12:10 PM CDT): - continue prn oxycodone for now - discussed need to wean off of this as this is not a viable manager terminal solution - will ref to pain [...] medication Assessment & Plan (07/15/2019 11:36 AM MACHINE OPERATOR ASSISTANT): - controlled - continue current plan Chronic [...] drink = 0.6 oz pur e alcohol) [facility] [employer] Answer Date Recorded In the past 12 months has opvizor, gas, oil, or water [employer] threatened to shut off services in your [...] often do you attend chur ch or presybeterian services? Never 09/21/2023 Do you belong to any clubs o r organizations such as yazdanism groups, unions, fraternal or athletic groups, or [...] place to sleep or slept in a retirement (including now)? No 09/21/2023 Personal Safety Answer Date Recorded Have you ever been in or are you currently in a harmful physical or emotional relationship or is someone making you feel afraid or unsafe? Denies 06/19/2024 Sex and Gender Information Value Date Recorded Sex Assigned at Not on file Legal Sex Male 3:38 AM MACHINE OPERATOR ASSISTANT Gender Identity Not on file Sexual Orientation Not on file Last Filed Vital Signs Vital Sign Reading Time Taken Comments Blood Pressure 137/99 06/19/2024 10:30 PM MACHINE OPERATOR ASSISTANT Pulse 93 06/19/2024 10:30 PM MACHINE OPERATOR ASSISTANT Temperature 36.7 C (98.1 F) 06/19/2024 6:48 PM MACHINE OPERATOR ASSISTANT Respiratory Rate 23 06/19/2024 10:30 PM MACHINE OPERATOR ASSISTANT Oxygen Saturation 97% 06/19/2024 10:30 PM MACHINE OPERATOR ASSISTANT Inhaled Oxygen Concentration - - Weight 74.5 kg (164 lb 3.9 oz) 06/19/2024 6:48 P M MACHINE OPERATOR ASSISTANT Height 177.8 cm (5' 10 ) 06/19/2024 6:48 PM MACHINE OPERATOR ASSISTANT Body Mass Index 23.57 06/19/2024 6:48 PM MACHINE OPERATOR ASSISTANT Plan of Treatment Not on file Medical Devices Explanted Type Area Production Honing Machine Operator Device Identifier Shelf Expiration Date Model / Serial / Lot [employer] [id number] Connell Flexi-Stent 7fr 5cm Small Pigtail Flexible .035in Stent - [id number] Implanted:Qty: 1 on 09/18/2018 by Vimal Woodruff MD at [facility] Explanted:Qty: 1 on 09/20/2018 at [facility] Stent N/A: Pancreas [employer] 06/10/2023 [id number] / / [id number] Conmed Gina [id number] [place] Viabil 10mm 8.5fr 6cm 200cm Fully Covered Self Expand Pull - [id number] - [id number] Implanted:Qty: 1 on 09/18/2018 by Vimal Woodruff MD at [facility] Explanted:Qty: 1 on 09/20/2018 at [facility] Stent N/A: Bile Duct Conmed Gina 06/29/2021 [id number] / [id number] / [employer] Connell Flexi-Stent 7fr 9cm Small Pigtail Flexible .035in Stent 6575 - [id number] Implanted:Qty: 1 on 02/07/2022 by Vimal Woodruff MD at [facility] Explanted:Qty: 1 on 02/10/2022 by Vimal Woodruff MD at [facility] Stent N/A: Pancreas [employer] 09/07/2026 [id number] / / [id number] [employer] [employer] Gina Wallflex 10mm X 60mm Fully Covered Biliary [id number] - [id number] Implanted:Qty: 1 on 02/07/2022 by Vimal Woodruff MD at [facility] Explanted:Qty: 1 on 02/10/2022 by Vimal Woodruff MD at [facility] Stent N/A: Bile Duct [employer] [employer] Gina 11/04/2023 [id number] / / [id number] [employer] Connell Flexi-Stent 7fr 9cm Small Pigtail Flexible .035in Stent 6575 - [id number] Implanted:Qty: 1 on 09/21/2023 by Vimal Woodruff MD at [facility] Explanted:Qty: 1 on 09/23/2023 by Vimal Woodruff MD at [facility] Stent N/A: Pancreas [employer] 03/11/2028 [id number] / / [id number] Description:Not present at b eginning of case. Self migrated out [employer] [employer] Gina Wallflex 10mm X 60mm Fully Covered Biliary [id number] - [id number] Implanted:Qty: 1 on 09/21/2023 by Vimal Woodruff MD at [facility] Explanted:Qty: 1 on 09/23/2023 by Vimal Woodruff MD at [facility] Stent N/A: Bile Duct [employer] Gina 08/02/2025 [id number] / / [id number] Procedures Procedure Name Priority Date/Time Associated Diagnosis Comments URINALYSIS, MICROSCOPIC ONLY STAT 06/19/2024 7:06 PM MACHINE OPERATOR ASSISTANT URINALYSIS AND REFLEX TO MICROSCOPIC AND CULTURE STAT 06/19/2024 7:06 PM MACHINE OPERATOR ASSISTANT ECG 12-LEAD STAT 06/19/2024 7:04 PM MACHINE OPERATOR ASSISTANT EGFR STAT 06/19/2024 6:56 PM MACHINE OPERATOR ASSISTANT DIFFERENTIAL AUTO STAT 06/19/2024 6:5 6 PM MACHINE OPERATOR ASSISTANT TROPONIN T HIGH-SENSITIVITY SERIES (BASELINE, 2HR, 4HR, 6HR) STAT 06/19/2024 6:56 PM MACHINE OPERATOR ASSISTANT LIPASE STAT 06/19/2024 6:56 PM MACHINE OPERATOR ASSISTANT COMPREHENSIVE METABOLIC PANEL STAT 06/19/2024 6:56 PM MACHINE OPERATOR ASSISTANT CBC WITH AUTO DIFFERENTIAL STAT 06/19/2024 6:56 PM MACHINE OPERATOR ASSISTANT DRUGS OF ABUSE SCREEN, URINE WITHOUT CONFIRMATION STAT 05/20/2024 7:37 PM MACHINE OPERATOR ASSISTANT CT ABDOMEN PELVIS W CONTRAST ED 05/20/2024 5:56 PM MACHINE OPERATOR ASSISTANT SEPSIS LACTATE WITH REFLEX STAT 05/20/2024 5:16 PM MACHINE OPERATOR ASSISTANT EGFR STAT 05/20/2024 4:03 PM MACHINE OPERATOR ASSISTANT DIFFERENTIAL AUTO STAT 05/20/2024 4:0 3 PM MACHINE OPERATOR ASSISTANT LIPASE STAT 05/20/2024 4:03 PM MACHINE OPERATOR ASSISTANT COMPREHENSIVE METABOLIC PANEL STAT 05/20/2024 4:03 PM MACHINE OPERATOR ASSISTANT CBC WITH AUTO DIFFERENTIAL STAT 05/20/2024 4:03 PM MACHINE OPERATOR ASSISTANT URINALYSIS AND REFLEX TO MICROSCOPIC AND CULTURE STAT 05/20/2024 4:03 PM MACHINE OPERATOR ASSISTANT URINALYSIS, MICROSCOPIC ONLY STAT 04/20/2024 4:15 PM MACHINE OPERATOR ASSISTANT URINALYSIS AND REFLEX TO MICROSCOPIC AND CULTURE STAT 04/20/2024 4:15 PM MACHINE OPERATOR ASSISTANT CT ABDOMEN PELVIS W CONTRAST ED 04/20/2024 2:02 PM MACHINE OPERATOR ASSISTANT ECG 12-LEAD STAT 04/20/2024 12:58 PM MACHINE OPERATOR ASSISTANT EGFR STAT 04/20/2024 12:56 PM MACHINE OPERATOR ASSISTANT DIFFERENTIAL AUTO STAT 04/20/2024 12: 56 PM MACHINE OPERATOR ASSISTANT LIPASE STAT 04/20/2024 12:56 PM MACHINE OPERATOR ASSISTANT COMPREHENSIVE METABOLIC PANEL STAT 04/20/2024 12:56 PM MACHINE OPERATOR ASSISTANT CBC WITH AUTO DIFFERENTIAL STAT 04/20/2024 12:56 PM MACHINE OPERATOR ASSISTANT XR SPINE CERVICAL 2 OR 3 VIEWS Schedule Routine, Read Routine (OP Routine) 03/25/2024 11:32 AM MACHINE OPERATOR ASSISTANT Neck pain from Last 3 Months Results * (ABNORMAL) Urinalysis reflex to microscopic and culture Urine (06/19/2024 7:06 PM MACHINE OPERATOR ASSISTANT) Color, ur Yellow Yellow Comment:Testing performed by : [address] [address] Clarity, ur Clear Clear NEEL Comment:Testing performed by : [address] [address] Specific gravity, ur 1.023 1.003 - 1.030 NEEL Comment:Testing performed by : [address] [address] pH, urine 6.0 NEEL Comment: Interpretive Data U rine pH is affected by diet, medications, systemic acid-base disturbances, and renal tubular function. pH may affect urinary stone formation. For example, urine pH below 6.0 may help reduce the tendency for calcium phosphate stones and pH greater than 6.0 may reduce the tendency for uric acid stone formation. Source: [employer] Current Interpretive Data was last revised on 2017 Testing performed by: [address] [address] Protein, ur ql Trace(A) Negative NEEL Comment:Testing performed by : [address] [place]., [address] Glucose, ur ql Negative Negative NEEL Comment:Testing performed by : [facility], [address] [place] [address], [place]., [address] Ketones, ur 1+(A) Negative NEEL SMITH Comment:Testing performed by : [address], [place]., [address] Bilirubin, ur Negative Negative NEEL SMITH Comment:Testing performed by : [address], [place]., [address] Blood, ur Negative Negative NEEL Comment:Testing performed by : [address], [place]., [address] Urobilinogen, ur <2.0 <2.0 mg/dL NEEL SMITH Comment:Testing performed by : [address], [place]., [address] Nitrite, ur Negative Negative NEEL Comment:Testing performed by : [address], [place]., [address] Leukocyte esterase, ur Negative Negative NEEL Comment:Testing performed by : [address], [place]., [address] UA reflex comment Reflex to microscopic UA will be performed. NEEL Comment:Testing performed by : [address] [address] Urine 06/19/2024 7:06 PM MACHINE OPERATOR ASSISTANT 06/19/2024 7:11 PM MACHINE OPERATOR ASSISTANT Terri Fuentes MD LAB MICROBIOLOGY - GENER AL ORDERABLES Final Result NEEL [address] [facility] Department [place] [address] * (ABNORMAL) Urinalysis, microscopic only (06/19/2024 7:06 PM MACHINE OPERATOR ASSISTANT) WBC, ur 0-5 0 - 5 /HPF Comment:Testing performed by : [address], [place]., [address] RBC, ur 0-2 0 - 2 /HPF NEEL SMITH Comment:Testing performed by : [address], [place]., [address] Bacteria, ur Trace(A) NEEL Comment:Testing performed by : [address] [address] Mucous, ur Present(A) NEEL Comment:Testing performed by : [address] [address] Culture Reflex Comment Reflex conditions for urine culture (WBC >10) not met. NEEL Comment:Testing performed by : [address] [address] Urine 06/19/2024 7:06 PM MACHINE OPERATOR ASSISTANT 06/19/2024 7:11 PM MACHINE OPERATOR ASSISTANT Terri Fuentes MD LAB URINE ORDERABLES Fin al Result Performing Organization Address City/[facility] [address]/ZIP Co de Phone Number NEEL [address] [facility] Department [place] [address] * ECG 12 lead (06/19/2024 7:04 PM MACHINE OPERATOR ASSISTANT) Ventricular Rate EKG/Min 67 BPM [facility] Atrial Rate 67 BPM [facility] AR-Interval (MSEC) 106 ms [facility] QRS-Interval (MSEC) 102 ms [facility] QT-Interval (MSEC) 410 ms [facility] QTc 433 ms [facility] P Beltrami 28 degrees [facility] R [place]tr[place] 37 degrees [facility] T Beltrami 50 degrees [facility] Diagnosis Sinus rhythm with short AR with sinus arrhythmia Within normal limits When compared with ECG of 20-APR-2024 12:58, No significant change Confirmed by SULTAN DE JESUS M.D. ([id number]) on 06/20/2024 1:51:59 PM [facility] 06/19/2024 7:04 PM MACHINE OPERATOR ASSISTANT 06/20/2024 1:51 PM MACHINE OPERATOR ASSISTANT Terri Fuentes MD ECG ORDERABLES Final Re sult Performing Organization Address City/[facility] [address]/ZIP Co de Phone Number [facility] * Troponin T high-sensitivity series (baseline, 2hr, 4hr, 6hr) (06/19/2024 6:56 PM MACHINE OPERATOR ASSISTANT) Trop T hs <6 <=22 ng/L Comment: Interpretive Data For further hscTnT resources including the diagnostic algorithm and an aid in interpretation, copy and paste this link: [email or web address].testcatalog.org/show/hsTrop Current Interpretive Data last revised 2020. Testing performed by: [address] [address] Blood 06/19/2024 6:56 PM MACHINE OPERATOR ASSISTANT 06/19/2024 7:03 PM MACHINE OPERATOR ASSISTANT us Terri Fuentes MD LAB BLOOD ORDERABLES Fin al Result NEEL [address] [facility] Department [place] [address] * eGFR (06/19/2024 6:56 PM MACHINE OPERATOR ASSISTANT) eGFR >90 >=60 mL/min/1. 73 m2 Comment: [...] was last reviewed 2021. Testing performed by: [address] [address] Blood 06/19/2024 6:56 PM MACHINE OPERATOR ASSISTANT 06/19/2024 7:03 PM MACHINE OPERATOR ASSISTANT us Terri Fuentes MD LAB BLOOD ORDERABLES Fin al Result NEEL [address] [facility] Department [place] [address] * (ABNORMAL) Differential, auto (06/19/2024 6:56 PM MACHINE OPERATOR ASSISTANT) Neutrophil abs 17.4(H) 1.5 - 6.5 K/cumm Comment:Testing performed by : [address] [address] Imm gran abs 0.1 0.0 - 0.1 K/cumm NEEL Comment:Testing performed by : [address] [address] Lymphocyte abs 1.2 0.8 - 3.3 K/cumm NEEL Comment:Testing performed by : [address] [address] Monocyte abs 1.1(H) 0.2 - 0.8 K/cumm NEEL Comment:Testing performed by : [address] [address] Eosinophil abs 0.0 0.0 - 0.5 K/cumm NEEL Comment:Testing performed by : [address] [address] Basophil abs 0.1 0.0 - 0.1 K/cumm NEEL Comment:Testing performed by : [address] [address] Neutrophil pct 87.3 % NEEL Comment: Interpretive Data Percent cell count reference ranges are not reported, since discordance with absolute values may lead to misinterpretation of CBC data. Current Interpretive Data was last revised on 2017. Testing performed by: [address] [address] Imm gran pct 0.7 % NEEL Comment: Interpretive Data Percent cell count reference ranges are not reported, since discordance with absolute values may lead to misinterpretation of CBC data. Current Interpretive Data was last revised on 2017. Testing performed by: [address] [address] Lymphocyte pct 6.2 % [facility] Comment: Interpretive Data Percent cell count reference ranges are not reported, since discordance with absolute values may lead to misinterpretation of CBC data. Current Interpretive Data was last revised on 2017. Testing performed by: [address] [address] Monocyte pct 5.5 % [facility] Comment: Interpretive Data Percent cell count reference ranges are not reported, since discordance with absolute values may lead to misinterpretation of CBC data. Current Interpretive Data was last revised on 2017. Testing performed by: [address] [address] Eosinophil pct 0.0 % [facility] Comment: Interpretive Data Percent cell count reference ranges are not reported, since discordance with absolute values may lead to misinterpretation of CBC data. Current Interpretive Data was last revised on 2017. Testing performed by: [address] [address] Basophil pct 0.3 % [facility] Comment: Interpretive Data Percent cell count reference ranges are not reported, since discordance with absolute values may lead to misinterpretation of CBC data. Current Interpretive Data was last revised on 2017. Testing performed by: [address] [address] Blood 06/19/2024 6:56 PM MACHINE OPERATOR ASSISTANT 06/19/2024 7:03 PM MACHINE OPERATOR ASSISTANT us Terri Fuentes MD LAB BLOOD ORDERABLES Fin al Result NEEL [address] [facility] Department [place] [address] * (ABNORMAL) CBC with auto differential (06/19/2024 6:56 PM MACHINE OPERATOR ASSISTANT) Pathologist [facility] WBC 20.0(H) 3.8 - 9.9 K/cumm Comment:Testing performed by : [address] [address] Hgb 13.8 13.0 - 17.5 g/dL NEEL Comment:Testing performed by : [address], [address] Hct 41.3 38.9 - 50.3 % NEEL Comment:Testing performed by : [address] [address] Plt 330 150 - 400 K/cumm NEEL Comment:Testing performed by : [address] [address] MPV 9.8 9.1 - 12.3 fL NEEL Comment:Testing performed by : [address], [address] RBC 5.02 4.30 - 5.80 M/cumm NEEL Comment:Testing performed by : [address], [address] MCV 82.3 81.3 - 96.4 fL NEEL Comment:Testing performed by : [address] [address] MCH 27.5 27.1 - 33.3 pg NEEL Comment:Testing performed by : [address], [address] MCHC 33.4 32.3 - 35.7 g/dL NEEL Comment:Testing performed by : [address], [address] RDW CV 15.8(H) 11.1 - 14.9 % NEEL Comment:Testing performed by : [address], [address] RDW SD 46.4 35.7 - 48.1 fL NEEL Comment:Testing performed by : [address] [address] NRBC abs 0.00 0.00 - 0.01 K/cumm NEEL Comment:Testing performed by : [address] [address] Blood (Blood, Venous) 06/19/2024 6:56 PM MACHINE OPERATOR ASSISTANT 06/19/2024 7:03 PM MACHINE OPERATOR ASSISTANT Terri Fuentes MD LAB BLOOD ORDERABLES Fin al Result Performing Organization Address City/[facility] [address]/[facility] Co de Phone Number [id number] [address] * Lipase (06/19/2024 6:56 PM MACHINE OPERATOR ASSISTANT) Pathologist [facility] [place] Lipase 90 10 - 99 Units/L Comment:Testing performed by : [address] [address] Blood (Blood, Venous) 06/19/2024 6:56 PM MACHINE OPERATOR ASSISTANT 06/19/2024 7:03 PM MACHINE OPERATOR ASSISTANT Terri Fuentes MD LAB BLOOD ORDERABLES Fin al Result Performing Organization Address [facility] [address]/[facility] Co de Phone Number [id number] [address] * Comprehensive metabolic panel (06/19/2024 6:56 PM MACHINE OPERATOR ASSISTANT) Pathologist [facility] [place] Sodium 142 135 - 145 mmol/L Comment:Testing performed by : [address] [address] Potassium, pl 4.2 3.3 - 4.9 mmol/L NEEL Comment:Testing performed by : [address] [address] Chloride 106 97 - 110 mmol/L NEEL Comment:Testing performed by : [address] [address] CO2 22 22 - 32 mmol/L NEEL Comment:Testing performed by : [address] [address] Anion gap 14 2 - 15 mmol/L NEEL Comment:Testing performed by : [address] [address] BUN 15 6 - 25 mg/dL NEEL Comment:Testing performed by : [address] [address] Creatinine 0.97 0.80 - 1.30 mg/dL NEEL Comment:Testing performed by : [address] [address] Glucose 144 70 - 199 mg/dL NEEL [...] was last revised 2022. Testing performed by: [address] [address] Calcium 9.9 8.5 - 10.3 mg/dL NEEL Comment:Testing performed by : [address] [address] Bilirubin, total 0.4 0.1 - 1.2 mg/dL [facility] Comment[facility]Testing performed by : [address] [address] Protein, pl 7.4 6.5 - 8.5 g/dL [facility] Comment:Testing performed by : [address] [address] Albumin 4.5 3.5 - 5.0 g/dL [facility] Comment:Testing performed by : [address] [address] Alk phos 92 40 - 130 Units/L [facility] Comment:Testing performed by : [address] [address] ALT 26 7 - 55 Units/L [facility] Comment:Testing performed by : [address] [address] AST 25 10 - 50 Units/L NEEL Comment:Testing performed by : [address] [address] Blood 06/19/2024 6:56 PM MACHINE OPERATOR ASSISTANT 06/19/2024 7:03 PM MACHINE OPERATOR ASSISTANT us Terri Fuentes MD LAB BLOOD ORDERABLES [facility] al Result [facility] [address] [facility] Department [place] [address] * (ABNORMAL) Drugs of Abuse Screen, Urine without Confirmation (05/20/2024 7:37 PM MACHINE OPERATOR ASSISTANT) Amphetamine, ur Not Detected CutOff 500ng/mL Comment: Interpretive Data - Amphetamines: Samples containing greater than 500 ng/mL d-methamphetamine or other cross-reacting amphetamine compounds are reported as positive. Amphetamine immunoassays are subject to significant false positive rates due to cross-reactivity of non-amphetamine drugs. Confirmatory testing required for definitive results. Current Interpretive Data was last reviewed 2022. Barbiturates, ur Not Detected CutOff 200ng/mL [facility] Comment: Interpretive Data - Barbiturates: Samples containing greater than 200 ng/mL secobarbital or other cross-reacting barbiturate compounds are reported as positive. False positive and false negative results are possible. Confirmatory testing required for definitive results. Current Interpretive Data was last reviewed 2022. Benzodiazepines, ur Not Detected CutOff 100ng/mL [facility] Comment: Interpretive Data - Benzodiazepines: Samples containing greater than 100 ng/mL nordiazepam or other cross-reacting compounds are reported as positive. False positive and false negative results are possible. Confirmatory testing required for definitive results. Current Interpretive Data was last reviewed 2022. Cannabinoids, ur Screen Positive, presumptive (A) CutOff 50 ng/mL [facility] Comment: Interpretive Data - Cannabinoids: Samples containing greater than 50 ng/mL delta-9 THC -COOH or other cross- reacting compounds are reported as positive. False positive and false negative results are possible. Confirmatory testing required for definitive results. Current Interpretive Data was last reviewed 2022. Cocaine, ur Not Detected CutOff 150ng/mL [facility] Comment: Interpretive Data - Cocaine: Samples containing greater than 150 ng/mL benzoylecgonine or other cross- reacting compounds are reported as positive. False positive and false negative results are possible. Confirmatory testing required for definitive results. Current Interpretive Data was last reviewed 2022. Fentanyl, Ur Not Detected CutOff 5 ng/mL [facility] Comment: Interpretive Data - Fentanyl: Samples containing [...] revised on 2017. Urine 05/20/2024 7:37 PM MACHINE OPERATOR ASSISTANT 05/20/2024 7:40 PM MACHINE OPERATOR ASSISTANT Narrative [facility] - 05/20/2024 8:04 PM MACHINE OPERATOR ASSISTANT Drug of Abuse screening is performed by immunoassay for medical purposes only. This is not to be used for Pain Management purposes. Kelly LAWTON LAB URINE ORDERABLES F inal Result NEEL [address] [facility] Department [place] [address] * CT Abdomen Pelvis W Contrast (05/20/2024 5:56 PM MACHINE OPERATOR ASSISTANT) Anatomical Region Laterality Modality Body N/A Computed Tomogra phy 05/20/2024 6:54 PM MACHINE OPERATOR ASSISTANT Narrative 05/20/2024 7:00 PM MACHINE OPERATOR ASSISTANT EXAM DESCRIPTION: CT ABDOMEN PELVIS W CONTRAST REASON FOR STUDY: Abdominal pain, acute, nonlocalized Pt c/o abdominal pain [id number] with NV. Hx: cholecystectomy TECHNIQUE: CT scan [...] Francisco Jesus M.D. KT T: Report ID: [id number] Reading Location: [id number] Procedure Note Jose Francisco Jesus MD - 05/20/2024 EXAM DESCRIPTION: CT ABDOMEN PELVIS W CONTRAST REASON FOR STUDY: Abdominal pain, acute, nonlocalized Pt c/o abdominal pain [id number] with NV. Hx: cholecystectomy TECHNIQUE: CT scan [...] Francisco Jesus M.D. KT T: Report ID: [id number] Reading Location: [id number] Kelly LAWTON IMG CT PROCEDURES Renee l Result * Sepsis Lactate w/ Reflex (05/20/2024 5:16 PM MACHINE OPERATOR ASSISTANT) Sepsis Lactate 1.5 0.7 - 2.0 mmol/L Blood 05/20/2024 5:16 PM MACHINE OPERATOR ASSISTANT 05/20/2024 5:18 PM MACHINE OPERATOR ASSISTANT Kelly LAWTON LAB BLOOD ORDERABLES F inal Result Performing Organization Address City/[facility] [address]/ZIP Co de Phone Number NEEL [address] [address] * eGFR (05/20/2024 4:03 PM MACHINE OPERATOR ASSISTANT) Pathologist [facility] [place] eGFR >90 >=60 mL/min/1. 73 m2 Comment: [...] last reviewed 2021. Blood 05/20/2024 4:03 PM MACHINE OPERATOR ASSISTANT 05/20/2024 4:07 PM MACHINE OPERATOR ASSISTANT Freddy Bell MD LAB BLOOD ORDERABLES Final Result Performing Organization Address City/[facility] [address]/ZIP Co de Phone Number [id number] [employer] [place] [address] * (ABNORMAL) Differential, auto (05/20/2024 4:03 PM MACHINE OPERATOR ASSISTANT) [facility] Neutrophil abs 15.0(H) 1.5 - 6.5 K/cumm Imm gran abs 0.1 0.0 - 0.1 K/cumm [facility] Lymphocyte abs 3.1 0.8 - 3.3 K/cumm [facility] Monocyte abs 1.6(H) 0.2 - 0.8 K/cumm [facility] Eosinophil abs 0.2 0.0 - 0.5 K/cumm [facility] Basophil abs 0.1 0.0 - 0.1 K/cumm [facility] Neutrophil pct 74.9 % [facility] Comment: Interpretive Data Percent cell count reference ranges are not reported, since discordance with absolute values may lead to misinterpretation of CBC data. Current Interpretive Data was last revised on 2017. Imm gran pct 0.5 % [facility] Comment: Interpretive Data Percent cell count reference ranges are not reported, since discordance with absolute values may lead to misinterpretation of CBC data. Current Interpretive Data was last revised on 2017. Lymphocyte pct 15.3 % [facility] Comment: Interpretive Data Percent cell count reference ranges are not reported, since discordance with absolute values may lead to misinterpretation of CBC data. Current Interpretive Data was last revised on 2017. Monocyte pct 7.8 % [facility] Comment: Interpretive Data Percent cell count reference ranges are not reported, since discordance with absolute values may lead to misinterpretation of CBC data. Current Interpretive Data was last revised on 2017. Eosinophil pct 1.1 % [facility] Comment: Interpretive Data Percent cell count reference ranges are not reported, since discordance with absolute values may lead to misinterpretation of CBC data. Current Interpretive Data was last revised on 2017. Basophil pct 0.4 % [facility] Comment: Interpretive Data Percent cell count reference ranges are not reported, since discordance with absolute values may lead to misinterpretation of CBC data. Current Interpretive Data was last revised on 2017. Blood 05/20/2024 4:03 PM MACHINE OPERATOR ASSISTANT 05/20/2024 4:07 PM MACHINE OPERATOR ASSISTANT us Freddy Bell MD LAB BLOOD ORDERABLES Final Result [facility] [address] [facility] Department [place] [address] * (ABNORMAL) Urinalysis reflex to microscopic and culture Urine (05/20/2024 4:03 PM MACHINE OPERATOR ASSISTANT) Color, ur Yellow Yellow Clarity, ur Cloudy(A) Clear [facility] Specific gravity, ur 1.021 1.003 - 1.030 [facility] pH, urine 6.5 [facility] Comment: Interpretive Data U rine pH is affected by diet, medications, systemic acid-base disturbances, and renal tubular function. pH may affect urinary stone formation. For example, urine pH below 6.0 may help reduce the tendency for calcium phosphate stones and pH greater than 6.0 may reduce the tendency for uric acid stone formation. Source: [facility] Current Interpretive Data was last revised on 2017 Protein, ur ql Negative Negative [facility] Glucose, ur ql Negative Negative [facility] Ketones, ur Negative Negative [facility] Bilirubin, ur Negative Negative [facility] Blood, ur Negative Negative [facility] Urobilinogen, ur <2.0 <2.0 mg/dL [facility] Nitrite, ur Negative Negative [facility] Leukocyte esterase, ur Negative Negative [facility] UA reflex comment Reflex conditions for microscopic UA and culture not met. [facility] Urine 05/20/2024 4:0 3 PM MACHINE OPERATOR ASSISTANT 05/20/2024 4:07 PM MACHINE OPERATOR ASSISTANT us Freddy Bell MD LAB MICROBIOLOGY - GENERAL ORDERABLES Final Result [facility] [address] [facility] Department [place] [address] * (ABNORMAL) CBC with auto differential (05/20/2024 4:03 PM MACHINE OPERATOR ASSISTANT) Pathologist [facility] [place] WBC 20.1(H) 3.8 - 9.9 K/cumm Hgb 14.2 13.0 - 17.5 g/dL [facility] Hct 43.4 38.9 - 50.3 % [facility] Plt 327 150 - 400 K/cumm [facility] MPV 9.9 9.1 - 12.3 fL [facility] RBC 5.20 4.30 - 5.80 M/cumm [facility] MCV 83.5 81.3 - 96.4 fL [facility] MCH 27.3 27.1 - 33.3 pg [facility] MCHC 32.7 32.3 - 35.7 g/dL [facility] RDW CV 15.9(H) 11.1 - 14.9 % [facility] RDW SD 47.5 35.7 - 48.1 fL [facility] NRBC abs 0.00 0.00 - 0.01 K/cumm [facility] Blood (Blood, Venous) 05/20/2024 4:03 PM MACHINE OPERATOR ASSISTANT 05/20/2024 4:07 PM MACHINE OPERATOR ASSISTANT Freddy Bell MD LAB BLOOD ORDERABLES Final Result Performing Organization Address [facility] [address]/ZIP Co de Phone Number [address] [employer] [place] [address] * Lipase (05/20/2024 4:03 PM MACHINE OPERATOR ASSISTANT) [facility] Lipase 34 10 - 99 Units/L Blood (Blood, Venous) 05/20/2024 4:03 PM MACHINE OPERATOR ASSISTANT 05/20/2024 4:07 PM MACHINE OPERATOR ASSISTANT Freddy Bell MD LAB BLOOD ORDERABLES Final Result Performing Organization Address [facility] [address]/[facility] de Phone Number [address] [employer] [place] [address] * Comprehensive metabolic panel (05/20/2024 4:03 PM MACHINE OPERATOR ASSISTANT) [facility] Sodium 142 135 - 145 mmol/L Potassium, pl 3.6 3.3 - 4.9 mmol/L [facility] Chloride 105 97 - 110 mmol/L [facility] CO2 24 22 - 32 mmol/L [facility] Anion gap 13 2 - 15 mmol/L [facility] BUN 12 6 - 25 mg/dL [facility] Creatinine 1.00 0.80 - 1.30 mg/dL [facility] Glucose 101 70 - 199 mg/dL [facility] Comment: Interpretive Data Fasting glucose >/= [...] 2022. Calcium 10.1 8.5 - 10.3 mg/dL [facility] Bilirubin, total 0.3 0.1 - 1.2 mg/dL [facility] Protein, pl 7.3 6.5 - 8.5 g/dL [facility] Albumin 4.5 3.5 - 5.0 g/dL [facility] Alk phos 97 40 - 130 Units/L [facility] ALT 22 7 - 55 Units/L [facility] AST 24 10 - 50 Units/L [facility] Blood 05/20/2024 4:03 PM MACHINE OPERATOR ASSISTANT 05/20/2024 4:07 PM MACHINE OPERATOR ASSISTANT Freddy Bell MD LAB BLOOD ORDERABLES Final Result [facility] [address] [facility] Department [place] [address] * (ABNORMAL) Urinalysis reflex to microscopic and culture Urine (04/20/2024 4:15 PM MACHINE OPERATOR ASSISTANT) Color, ur Yellow Yellow Comment:Testing performed by : [address] [address] Clarity, ur Clear Clear [facility] Comment:Testing performed by : [address] [address] Specific gravity, ur >1.050(A) 1.003 - 1.030 [facility] Comment:Testing performed by : [address] [address] pH, urine 8.5 [facility] Comment: Interpretive Data U rine pH is affected by diet, medications, systemic acid-base disturbances, and renal tubular function. pH may affect urinary stone formation. For example, urine pH below 6.0 may help reduce the tendency for calcium phosphate stones and pH greater than 6.0 may reduce the tendency for uric acid stone formation. Source: [facility] Current Interpretive Data was last revised on 2017 Testing performed by: [facility], [address] [place] [address], [place]., [address] Protein, ur ql 1+(A) Negative NEEL SMITH Comment:Testing performed by : [address], [place]., [address] Glucose, ur ql Negative Negative NEEL Comment:Testing performed by : [address], [place]., [address] Ketones, ur 2+(A) Negative NEEL Comment:Testing performed by : [address], [place]., [address] Bilirubin, ur Negative Negative NEEL Comment:Testing performed by : [address], [place]., [address] Blood, ur Negative Negative NEEL Comment:Testing performed by : [address], [place]., [address] Urobilinogen, ur <2.0 <2.0 mg/dL NEEL Comment:Testing performed by : [address], [place]., [address] Nitrite, ur Negative Negative NEEL Comment:Testing performed by : [address], [place]., [address] Leukocyte esterase, ur Negative Negative NEEL Comment:Testing performed by : [address], [place]., [address] UA reflex comment Reflex to microscopic UA will be performed. NEEL Comment:Testing performed by : [address] [address] Urine 04/20/2024 4:15 PM MACHINE OPERATOR ASSISTANT 04/20/2024 4:47 PM MACHINE OPERATOR ASSISTANT us Blue Warren MD LAB MICROBIOLOGY - GENERAL ORDERABLES Final Result NEEL SARAH [address] [facility] Department [place] [address] * (ABNORMAL) Urinalysis, microscopic only (04/20/2024 4:15 PM MACHINE OPERATOR ASSISTANT) WBC, ur 0-5 0 - 5 /HPF Comment:Testing performed by : [address] [address] RBC, ur 3-5(A) 0 - 2 /HPF NEEL SMITH Comment:Testing performed by : [address] [address] Culture Reflex Comment Reflex conditions for urine culture (WBC >10) not met. NEEL SMITH Comment:Testing performed by : [address] [address] Urine 04/20/2024 4:15 PM MACHINE OPERATOR ASSISTANT 04/20/2024 4:47 PM MACHINE OPERATOR ASSISTANT us Blue Warren MD LAB URINE ORDERABLE S Final Result Performing Organization Address City/State/[facility] Co de Phone Number NEEL [address] [facility] Department [place] [address] * CT Abdomen Pelvis W Contrast (04/20/2024 2:02 PM MACHINE OPERATOR ASSISTANT) Anatomical Region Laterality Modality Body N/A Computed Tomogra phy 04/20/2024 2:35 PM MACHINE OPERATOR ASSISTANT Narrative 04/20/2024 2:48 PM MACHINE OPERATOR ASSISTANT EXAM DESCRIPTION: CT ABDOMEN PELVIS W CONTRAST [...] Esa Cao M.D. AG: GONZALES Report ID: [id number] Reading Location: [id number] Procedure Note Esa Cao MD - 04/20/2024 [...] Esa Cao M.D. AG: GONZALES Report ID: [id number] Reading Location: [place] [address] PROCEDURES Final Re sult * ECG 12 lead (04/20/2024 12:58 PM MACHINE OPERATOR ASSISTANT) Ventricular Rate EKG/Min 62 BPM [facility] Atrial Rate 62 BPM [facility] AR-Interval (MSEC) 84 ms [facility] QRS-Interval (MSEC) 94 ms [facility] QT-Interval (MSEC) 402 ms [facility] QTc 408 ms [facility] P Beltrami 5 degrees [facility] R [place]trami 37 degrees [facility] T Beltrami 41 degrees [facility] Diagnosis Sinus rhythm with short AR Otherwise normal ECG When compared with ECG of 21-FEB-2024 06:26, No significant change was found Confirmed by DARIEL CARLOS M.D. ([id number]) on 04/24/2024 7:39:01 PM [facility] 04/20/2024 12:5 8 PM MACHINE OPERATOR ASSISTANT 04/24/2024 7:39 PM MACHINE OPERATOR ASSISTANT us Blue Warren MD ECG ORDERABLES Fin al Result [facility] * eGFR (04/20/2024 12:56 PM MACHINE OPERATOR ASSISTANT) eGFR >90 >=60 mL/min/1. 73 m2 Comment: [...] was last reviewed 2021. Testing performed by: [facility], [address] [place] [address]., [address] Blood 04/20/2024 12:5 6 PM MACHINE OPERATOR ASSISTANT 04/20/2024 1:00 PM MACHINE OPERATOR ASSISTANT us Blue Warren MD LAB BLOOD ORDERABLE S Final Result NEEL [address] [facility] Department [place] [address] * (ABNORMAL) Differential, auto (04/20/2024 12:56 PM MACHINE OPERATOR ASSISTANT) [facility] Neutrophil abs 13.1(H) 1.5 - 6.5 K/cumm Comment:Testing performed by : [address] [address] Imm gran abs 0.1 0.0 - 0.1 K/cumm NEEL Comment:Testing performed by : [address] [address] Lymphocyte abs 1.2 0.8 - 3.3 K/cumm NEEL Comment:Testing performed by : [address] [address] Monocyte abs 1.2(H) 0.2 - 0.8 K/cumm NEEL Comment:Testing performed by : [address] [address] Eosinophil abs 0.1 0.0 - 0.5 K/cumm NEEL Comment:Testing performed by : [address] [address] Basophil abs 0.1 0.0 - 0.1 K/cumm [facility] Comment:Testing performed by : [address] [address] Neutrophil pct 83.8 % [facility] Comment: Interpretive Data Percent cell count reference ranges are not reported, since discordance with absolute values may lead to misinterpretation of CBC data. Current Interpretive Data was last revised on 2017. Testing performed by: [address] [address] Imm gran pct 0.3 % [facility] Comment: Interpretive Data Percent cell count reference ranges are not reported, since discordance with absolute values may lead to misinterpretation of CBC data. Current Interpretive Data was last revised on 2017. Testing performed by: [address] [address] Lymphocyte pct 7.8 % [facility] Comment: Interpretive Data Percent cell count reference ranges are not reported, since discordance with absolute values may lead to misinterpretation of CBC data. Current Interpretive Data was last revised on 2017. Testing performed by: [address] [address] Monocyte pct 7.4 % NEEL SMITH Comment: Interpretive Data Percent cell count reference ranges are not reported, since discordance with absolute values may lead to misinterpretation of CBC data. Current Interpretive Data was last revised on 2017. Testing performed by: [address] [address] Eosinophil pct 0.4 % NEEL SMITH Comment: Interpretive Data Percent cell count reference ranges are not reported, since discordance with absolute values may lead to misinterpretation of CBC data. Current Interpretive Data was last revised on 2017. Testing performed by: [address] [address] Basophil pct 0.3 % NEEL SMITH Comment: Interpretive Data Percent cell count reference ranges are not reported, since discordance with absolute values may lead to misinterpretation of CBC data. Current Interpretive Data was last revised on 2017. Testing performed by: [address] [address] Blood 04/20/2024 12:5 6 PM MACHINE OPERATOR ASSISTANT 04/20/2024 1:00 PM MACHINE OPERATOR ASSISTANT us Blue Warren MD LAB BLOOD ORDERABLE S Final Result [facility] [address] [facility] Department [place] [address] * (ABNORMAL) CBC with auto differential (04/20/2024 12:56 PM MACHINE OPERATOR ASSISTANT) WBC 15.7(H) 3.8 - 9.9 K/cumm Comment:Testing performed by : [address] [address] Hgb 13.8 13.0 - 17.5 g/dL NEEL SMITH Comment:Testing performed by : [address] [address] Hct 41.6 38.9 - 50.3 % NEEL SMITH Comment:Testing performed by : [address] [address] Plt 337 150 - 400 K/cumm NEEL SMITH Comment:Testing performed by : [address] [address] MPV 9.6 9.1 - 12.3 fL NEEL SMITH Comment:Testing performed by : [address] [address] RBC 5.09 4.30 - 5.80 M/cumm NEEL SMITH Comment:Testing performed by : [address] [address] MCV 81.7 81.3 - 96.4 fL NEEL Comment:Testing performed by : [address] [address] MCH 27.1 27.1 - 33.3 pg NEEL SMITH Comment:Testing performed by : [address] [address] MCHC 33.2 32.3 - 35.7 g/dL NEEL SMITH Comment:Testing performed by : [address] [address] RDW CV 15.9(H) 11.1 - 14.9 % NEEL SMITH Comment:Testing performed by : [address] [address] RDW SD 47.5 35.7 - 48.1 fL NEEL SMITH Comment:Testing performed by : [address] [address] NRBC abs 0.00 0.00 - 0.01 K/cumm NEEL SMITH Comment:Testing performed by : [address] [address] Blood (Blood, Venous) 04/20/2024 12:56 PM MACHINE OPERATOR ASSISTANT 04/20/2024 1:00 PM MACHINE OPERATOR ASSISTANT us Blue Warren MD LAB BLOOD ORDERABLE S Final Result NEEL SMITH [address] [facility] Department [place] [address] * Lipase (04/20/2024 12:56 PM MACHINE OPERATOR ASSISTANT) Lipase 23 10 - 99 Units/L Comment:Testing performed by : [address] [address] Blood (Blood, Venous) 04/20/2024 12:56 PM MACHINE OPERATOR ASSISTANT 04/20/2024 1:00 PM MACHINE OPERATOR ASSISTANT us Blue Warren MD LAB BLOOD ORDERABLE S Final Result [facility] [address] [facility] Department [place] [address] * Comprehensive metabolic panel (04/20/2024 12:56 PM MACHINE OPERATOR ASSISTANT) Pathologist [facility] [place] Sodium 142 135 - 145 mmol/L Comment:Testing performed by : [address] [address] Potassium, pl 4.2 3.3 - 4.9 mmol/L NEEL Comment:Testing performed by : [address] [address] Chloride 105 97 - 110 mmol/L NEEL Comment:Testing performed by : [address] [address] CO2 24 22 - 32 mmol/L NEEL Comment:Testing performed by : [address] [address] Anion gap 13 2 - 15 mmol/L NEEL Comment:Testing performed by : [address] [address] BUN 8 6 - 25 mg/dL NEEL Comment:Testing performed by : [address] [address] Creatinine 1.00 0.80 - 1.30 mg/dL NEEL Comment:Testing performed by : [address] [address] Glucose 145 70 - 199 mg/dL NEEL [...] was last revised 2022. Testing performed by: [facility], [address] [place] [address]., [address] Calcium 10.1 8.5 - 10.3 mg/dL NEEL Comment:Testing performed by : [address] [address] Bilirubin, total 0.5 0.1 - 1.2 mg/dL NEEL Comment:Testing performed by : [address] [address] Protein, pl 7.4 6.5 - 8.5 g/dL NEEL Comment:Testing performed by : [address] [address] Albumin 4.6 3.5 - 5.0 g/dL NEEL Comment:Testing performed by : [address] [address] Alk phos 106 40 - 130 Units/L NEEL Comment:Testing performed by : [address] [address] ALT 15 7 - 55 Units/L NEEL Comment:Testing performed by : [address] [address] AST 17 10 - 50 Units/L NEEL Comment:Testing performed by : [address] [address] Blood 04/20/2024 12:5 6 PM MACHINE OPERATOR ASSISTANT 04/20/2024 1:00 PM MACHINE OPERATOR ASSISTANT us Blue Warren MD LAB BLOOD ORDERABLE S Final Result NEEL [address] [facility] Department [place] [address] * XR Spine Cervical 2 or 3 Views (03/25/2024 11:32 AM MACHINE OPERATOR ASSISTANT) Anatomical Region Laterality Modality Spine N/A Computed Radiogr aphy 03/29/2024 11:2 1 AM MACHINE OPERATOR ASSISTANT Narrative 03/29/2024 11:24 AM MACHINE OPERATOR ASSISTANT EXAM DESCRIPTION: XR SPINE CERVICAL 2 OR [...] Calvin Linn M.D. MF: MK Report ID: [id number] Reading Location: [id number] Procedure Note Calvin Linn MD - 03/29/2024 [...] Calvin Linn M.D. MF: MK Report ID: [id number] Reading Location: [id number] us Td Lopez MD IMG XR PROCEDURES Final Result from Last 3 Months Insurance [facility] [place] [facility] Advance Directives For more information, please contact: [phone] * Full Code (Latest Code Status on [...] 11:23 AM 02/10/2022 10:36 PM Care Teams Framer Relationship Specialty Start Date End Date Td Lopez MD [address] [facility] [address] [place] [address] PCP - General Family Medicine 11/09/20 Angie Woodard MD [address] [facility] [address] [place] [address] Consulting Physician Gastroenterology 07/17/21 Vimal Woodruff MD [address] [facility] [address] [place] [address] Consulting Physician Gastroenterology 02/10/22
--- OUTSIDE RECORDS SUMMARY | 2024-06-21 22:24 | XMS_ITS | Encounter Summary ---
Author Organization [facility] Healthcare Address [address] [place] [address] Care Team Providers Care Service Center Technician Name Role Phone Td Lopez MD Primary Care Provider + Angie Woodard MD Unavailable [phone] Vimal Woodruff MD Unavailable [phone] Alannah Baumann MA Unavailable [phone] Encounter Details Date Type Department Care Team (Late st Contact Info) Description 12/21/2017 Documentation [id number] [place] [address] Shannan Farfan RN Social History Tobacco Use Types Packs/Day Years Used Date Smoking Tobacco: Every Day Sex and Gender Information Value Date Recorded Sex Assigned at Not on file Legal Sex Male 3:38 AM STRIPPER AND PRINTER Gender Identity Not on file Sexual Orientation [...] COVID: Suspected 06/27/2021 06/27/2021 06/27/2021 12:53 PM STRIPPER AND PRINTER COVID19 06/27/2021 06/27/2021 07/08/2021 3:05 AM STRIPPER AND PRINTER COVID: Recovered Comment:Added based on recent COVID infection. 07/08/2021 07/14/2021 11/05/2021 3:05 AM C DT COVID: Suspected 05/20/2022 05/20/2022 05/20/2022 2:32 AM STRIPPER AND PRINTER COVID: Suspected 09/20/2023 09/20/2023 09/20/2023 9:26 PM CDT COVID: Suspected 10/04/2023 10/04/2023 10/04/2023 3:55 PM CDT documented as of this encounter Care Teams Service Center Technician Relationship Specialty Start Date End Date Td Lopez MD [address] [facility] [address] [place] [address] PCP - General Family Medicine 11/09/20 Angie Woodard MD [address] [facility] [address] [place] [address] Consulting Physician Gastroenterology 07/17/21 Vimal Woodruff MD [address] [facility] [address] [place] [address] Consulting Physician Gastroenterology 02/10/22 Alannah Baumann MA [address] [place] [address] [address] [place] [address] ACO Care Saw Offbearer 12/31/23 01/05/24 documented as of this encounter
--- OUTSIDE RECORDS SUMMARY | 2024-06-21 22:24 | XMS_ITS | Clinical Summary ---
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 Gender Identity Not on file Sexual Orientation Not on file Last Filed Vital Signs Vital Sign Reading Time Taken Comments Blood Pressure 119/84 07/11/2022 2:03 AM AUTO BODY MECHANIC Pulse 80 07/11/2022 2:03 AM AUTO BODY MECHANIC Temperature 36.3 C (97.4 F) 07/11/2022 2:03 AM AUTO BODY MECHANIC Respiratory Rate 18 07/11/2022 2:03 AM AUTO BODY MECHANIC Oxygen Saturation 97% 07/11/2022 2:03 AM AUTO BODY MECHANIC Inhaled Oxygen Concentration - - Weight 79.4 kg (175 lb) 07/10/2022 8:06 PM AUTO BODY MECHANIC Height 177.8 cm (5' 10 ) 07/10/2022 8:06 PM AUTO BODY MECHANIC Body Mass Index 25.11 07/10/2022 8:06 PM AUTO BODY MECHANIC Plan of Treatment Health Maintenance Due Date Last Done Comments HEPATITIS B VACCINES (1 of 3 - 19+ 3-dose series) 2000 INFLUENZA VACCINE (#1) 2023 , 02/29/2020, 02/09/2018 COVID-19 Vaccine ( season) 2024 10/29/2021, 11/02/2020, 10/05/2020 DTAP/TDAP/TD VACCINES (2 - Td or Tdap) 10/30/2031 10/29/2021 HPV VACCINES Aged Out No longer eligi ble based on patient's age to complete this topic Insurance [facility] MEDICAID [place]ICAID [place]
== END 2024-06-21 20:45 | disposition left against medical advice (07) ==
LOC: ANHED 22:20
PROVIDERS: PCP Family Medicine
DX: R10.9 Unspecified abdominal pain (principal)
CPT/HCPCS: 99199

== ENCOUNTER 2024-08-05 18:01 | Emergency (ER) | payer OTHER, SELFPAY ==
--- NOTE | ~2024-08-05 | CT_ITS ---
CT abdomen pelvis w con Ordering provider: Donovan Estes MD History: 44 years Male with . abd pain, cyclic vomiting, chronic pancreatitis . Comparison: February 19, 2024 Technique: CT abdomen and pelvis with IV and without oral contrast. Automated exposure control and it erative reconstruction technique were employed. The dose-length product was 373.83 mGy-cm. 100 mL Omn ipaque 350 was given IV. Findings: VISUALIZED LOWER CHEST: Normal. UPPER ABDOMINAL ORGANS: Liver: Mild fat infiltration. pneumobilia is present. Gallbladder: Status post cholecystectomy. Spleen: Normal. Stomach/duodenum: Normal. Pancreas: Normal. Adrenals: Normal. Kidneys: Normal. PELVIC ORGANS: The bladder shows slightly thickened wall. BOWEL AND MESENTERY: Colon: No evidence of diverticulitis. Normal appendix. Small Bowel: Normal. No obstruction. Peritoneum/mesentery: No free air or free fluid. No mesenteric lymphadenopathy. RETROPERITONEUM: Mild atheromatous disease of the abdominal aorta. No retroperitoneal lymphadenopat hy. MUSCULOSKELETAL: Superficial soft tissues: The superficial soft tissues are normal. Bones: Age appropriate degenerative changes of the spine. Small sclerotic areas seen in the left acet abulum. Follow-up advised. IMPRESSION: 1. No evidence of appendicitis, diverticulitis or intestinal obstruction. 2. Slightly thickened wall of the urinary bladder which may indicate cystitis. Clinical correlation advised. 3. Pneumobilia. Reviewed, dictated and finalized at location A.
--- OUTSIDE RECORDS SUMMARY | 2024-08-05 18:04 | XMS_ITS | Encounter Summary ---
Author Organization [facility] Address [address] [place] [id number] Care Team Providers Care Bowling Ball Finisher Name Role Phone Td Lopez MD Primary Care Provider [phone] Reason for Visit * Reason Comments Abdominal Pain Encounter Details Date Type Department Care Team (Late st Contact Info) Description 08/03/2024 4:28 PM CDT - 08/03/2024 7:38 PM CDT Emergency [facility] Emergency Room [address] [place] [address] Nelida Carrizales MD [address] [place] [address] [phone] Abdominal Pain Discharge Disposition: Home or Self Care (Routine Discharge) Social History Tobacco Use Types Packs/Day Years [...] week 09/28/2022 How often do you attend samaritan or nondenominational serv ices? Never 09/28/2022 Do you belong to any clubs o r organizations such as samaritan groups, unions, fraternal or athletic groups, or [...] and heating? Not hard at all 10/18/2022 [facility] - Occupational Stress [...] place to sleep or slept in a care home (including now)? 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 Legal Sex Male 8:10 AM CDT Gender Identity Not on file Sexual Orientation Not on file documented as of this encounter Last Filed Vital Signs Vital Sign Reading Time Taken Comments Blood Pressure 145/78 08/03/2024 7:37 PM CDT Pulse 75 08/03/2024 7:37 PM CDT Temperature 36.9 C (98.4 F) 08/03/2024 4:37 PM CDT Respiratory Rate 16 08/03/2024 7:37 PM CDT Oxygen Saturation 99% 08/03/2024 7:37 PM CDT Inhaled Oxygen Concentration - - Weight 74.8 kg (165 lb) 08/03/2024 4:34 PM CDT Height 177.8 cm (5' 10 ) 08/03/2024 4:34 PM CDT Body Mass Index 23.68 08/03/2024 4:34 PM CDT documented in this encounter Functional Status * Are you deaf or do you have serious difficulty hearing Answer Date of Assessment Author Status No 10/18/2022 3:05 AM CDT Shannan Albrecht RN Active * Are you blind or do you have serious difficulty seeing, even when wearing glasses? Answer Date of Assessment Author Status No 10/18/2022 3:05 AM CDT Shannan Albrecht RN Active * Do you have serious difficulty walking or climbing stairs? Answer Date of Assessment Author Status No 10/18/2022 3:05 AM CDT Shannan Albrecht RN Active * Do you have difficulty dressing or bathing? Answer Date of Assessment Author Status No 10/18/2022 3:05 AM CDT Shannan Albrecht RN Active * Because of a physical, mental, or emotional condition, do you have difficulty doing errands alone such as visiting a doctor's office or shopping? Answer Date of Assessment Author Status No 10/18/2022 3:05 AM CDT Shannan Albrecht RN Active documented as of this encounter Mental Status * Because of a physical, mental, or emotional condition, do you have serious difficulty concentrating, remembering, or making decisions? Answer Entry Date Author Status No 10/18/2022 3:05 AM CDT Shannan Albrecht RN Active documented in this encounter Discharge Instructions * Discharge Instructions* Nelida Carrizales MD - 08/03/2024 7:28 PM CDT Continue home medications. Follow-up with your doctor including both primary care and GI for further care. * Attachments The following attachments cannot be sent through Care Everywhere. * Chronic Pain Discharge Instructions (Kenyan) * Abdominal Pain, Adult ED (Kenyan) documented in this encounter Medications at Time of Discharge amLODIPine (NORVASC) 5 MG tablet Take 1 tablet (5 mg total) by mouth daily. 30 tablet 10/20/2022 apixaban (ELIQUIS) 5 MG tabletIndications:D eep Vein Thrombosis Take 1 tablet (5 mg total) by mouth 2 (two) times daily. Indications: Blood Clot in a Deep Vein 60 tablet 10/19/2022 CREON [id number] units CAPSULE ENTERIC COATED PARTICLES Take 36,000 units of lipase by mouth 3 (three) times daily with meals. 09/18/2022 dicyclomine (BENTYL) 20 MG tablet Take 1 tablet (20 mg total) by mouth every 6 (six) hours as needed (abd pain). 30 tablet 11/05/2022 famotidine (PEPCID) 40 MG tablet daily. hyoscyamine (LEVSIN/SL) 0.125 MG SL tablet DISSOLVE 1 TABLET UNDER THE TONGUE 4 TIMES DAILY NEEDED FOR ABDOMINAL DISCOMFORT 10/09/2023 ondansetron (ZOFRAN-ODT) 4 MG disintegrating tablet Take 1 tablet (4 mg total) by mouth every 8 (eight) hours as needed for Nausea. 20 tablet 01/03/2024 oxyCODONE-acetamino phen (PERCOCET) 5-325 MG tabletIndications:A cute Pain < 3 Day Supply Take 1 tablet by mouth every 4 (four) hours as needed. Indications: Acute Pain < 3 Day Supply 18 tablet 10/19/2022 promethazine (PHENERGAN) 25 MG tablet Take 1 tablet (25 mg total) by mouth every 6 (six) hours as needed for Nausea. 15 tablet 06/11/2023 documented as of this encounter Nursing Notes * Vani Real RN - 08/03/2024 6:50 PM CDT Pt voided and forgot to leave urine sample. Pt educated again urine sample is needed. Urinal at bedside. documented in this encounter ED Notes * Nelida Carrizales MD - 08/03/2024 6:21 PM CDT Chief Complaint Chief Complaint Patient presents with Abdominal Pain History of Present Illness Patient is a 44-year-old male presents to the emergency department for evaluation of abdominal pain. Patient reports diffuse mid abdominal pain, nausea, and vomiting. Denies any fever or diarrhea. States pain began around 11:00 this morning. Patient reports history of similar episodes in the past. D escribes the pain as his stomach knotting up. Medical records reviewed in detail. Patient was seen at [facility] emergency department in [place] earlier today for these same symptoms. Patient was not given narcotic medications and advised he would not be receiving narcotic medications. Patient then decided he wanted to leave that facility. Shortly thereafter, arrived at this facility for evaluation of symptoms. Patient had additionallybeen seen in the emergency department at [facility] yesterday for the same symptoms. CT scandid not show any obvious explanation for patient's symptoms. No evidence of pancreatitis. Nonspecific fluid in small bowel which could be consistent with enteritis. Patient reports he follows with gastroenterology and is on Hyoscyamine, Zofran, and famotidine. Patient states he does not drink alcohol. He smokes a pack of cigarettes a day. He states he no longer uses marijuana and has not used in quite some time. Patient with innumerable ED visits abdominal pain on review of records both [facility] well as [facility]. Medical History ALLERGIES: Review of patient's allergies [...] a Deep Vein 10/19/22 SAMUEL Morillo CREON [id number] units CAPSULE ENTERIC COATED PARTICLES Take 36,000 [...] < 3 Day Supply 10/19/22 Carly Sharp SAMUEL Mcgee promethazine (PHENERGAN) 25 MG tablet Take 1 tablet (25 mg total) by mouth every 6 (six) hours as needed for Nausea. 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 Sphincter of Oddi dysfunction PAST SURGICAL HISTORY: Past Surgical History: Procedure Laterality Date CHOLECYSTECTOMY 2012 COLONOSCOPY N/A 04/15/2019 COLONOSCOPY Terminal Ileum Bxs Random colon BXs via Jumbo cold forcep performed by Angie Woodard MD at [facility] GI EGD ERCP HC BILIARY STENT [...] Review of Systems Physical Exam Filed Vitals: 08/03/24 1634 08/03/24 1637 08/03/24 1843 08/03/24 1937 BP: (!) 173/96 113/73 (!) 145/78 Pulse: 67 62 75 Resp: 22 20 16 Temp: 98.4 ??F (36.9 ??C) TempSrc: Temporal SpO2: 98% 99% 99% Weight: 74.8 kg (165 lb) Height: 1.778 m (5' 10 ) Physical Exam Vitals and nursing note reviewed. Constitutional: General: He is in acute distress (Due to pain). Appearance: Normal appearance. He is not toxic-appearing. Cardiovascular: Rate and Rhythm: Normal rate and regular rhythm. Pulmonary: Effort: Pulmonary effort is normal. Breath sounds: Normal breath sounds. Abdominal: General: Bowel sounds are normal. Palpations: Abdomen is soft. Tenderness: There is abdominal tenderness. There is no guarding or rebound. Musculoskeletal: General: Normal range of motion. Skin: General: Skin is warm and dry. Neurological: Mental Status: He is alert and oriented to person, place, and time. Psychiatric: Mood and Affect: Mood is anxious. Affect is tearful. Behavior: Behavior is hyperactive. Behavior is cooperative. Diagnostic Studies / Procedures ELECTROCARDIOGRAMS: No results found for this visit on 08/03/24. LABORATORY STUDIES: Results for orders placed or performed during the hospital encounter of 08/03/24 CBC W/DIFF AUTOMATED Result Value Ref Range WBC 17.48 (H) 4.4 - 11.0 x10'3/uL RBC 4.64 4.50 - 5.90 x10'6/uL HGB 13.2 (L) 14.0 - 17.5 G/DL HCT 39.1 (L) 41.5 - 50.4 % MCV 84.3 80.0 - 96.0 FL MCH 28.4 26.5 - 31.4 PG MCHC 33.8 31.9 - 34.8 G/DL RDW 16.2 (H) 12.3 - 14.3 % PLT 302 151 - 353 x10'3/uL MPV 10.1 9.7 - 11.9 FL RBC MORPHOLOGY NORMAL PLT MORPH. NORMAL WBC MORPHOLOGY NORMAL LYMPHOCYTES % 4.6 (L) 15.8 - 45.0 % NEUTROPHILS % 91.2 (H) 42.1 - 71.9 % MONOCYTES % 3.3 (L) 5.7 - 12.5 % EOSINOPHILS 0.0 0.0 - 5.6 % BASOPHILS 0.3 0.0 - 1.3 % ABS. NEUTROPHILS 15.94 (H) 1.40 - 6.00 x10'3/uL IMMATURE GRANS % 0.6 (H) 0.0 - 0.5 % ABS. LYMPHOCYTES 0.80 0.80 - 4.70 x10'3/uL COMPREHENSIVE METABOLIC PANEL Result Value Ref Range GLUCOSE 127 (H) 70 - 99 MG/DL BUN 9 7 - 18 MG/DL CREATININE S/P/B 0.97 0.7 - 1.3 MG/DL SODIUM S/P/B 140 136 - 145 MMOL/L POTASSIUM S/P/B 3.7 3.5 - 5.1 MMOL/L CHLORIDE S/P/B 104 100 - 108 MMOL/L CO2 23.9 21 - 32 MMOL/L CALCIUM S/P/B 8.6 8.5 - 10.1 MG/DL BILIRUBIN TOTAL S/P/B 0.5 0.2 - 1.2 MG/DL TOTAL PROTEIN S/P/B 7.0 6.4 - 8.2 G/DL ALBUMIN S/P/B 3.9 3.4 - 5.0 G/DL AST 25 15 - 37 U/L ALT 28 16 - 60 U/L ALKALINE PHOSPHATASE S/P/B 86 50 - 136 U/L ANION GAP 12.1 5 - 15 MMOL/L BUN CREATININE RATIO 9.3 6 - 26 A/G RATIO 1.3 1.0 - 2.0 RATIO GFR ESTIMATE >90 >90 ML/MIN/1.73 M2 LIPASE Result Value Ref Range LIPASE 33 16 - 77 UNITS/L URINALYSIS, AUTO, COMPLETE Result Value Ref Range COLOR (U) YELLOW TRANSPARENCY CLEAR SPECIFIC GRAVITY (U) <1.005 1.000 - 1.030 U PH 6.0 5.0 - 9.0 LEUKOCYTES (U) NEGATIVE NEGATIVE NITRITES NEGATIVE NEGATIVE PROTEIN RANDOM (U) NEGATIVE NEGATIVE GLUCOSE (U) NEGATIVE NEGATIVE KETONES MG/DL (U) NEGATIVE NEGATIVE BILIRUBIN (U) NEGATIVE NEGATIVE BLOOD (U) NEGATIVE NEGATIVE WBC/HPF NONE SEEN 0 - 5 /HPF RBC/HPF 0-5 0 - 5 /HPF EPI/HPF RARE /HPF BACTERIA (U) FEW /HPF IMAGING STUDIES No orders to display ED Course / Medical Decision Making Medical Decision Making Patient presents for evaluation of abdominal pain, nausea, and vomiting. Patient with chronic abdominal pain. Frequent visitor to multiple emergency departments. Patient with a ED visit yesterday andagain this afternoon at [facility]. Patient had CT scan done at that time. No concerning findings identified on CT. CT not repeated here today. Patient with mild elevation of white blood cell count, labs otherwise unremarkable. Patient given IV fluids and medications for symptoms. 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 Problems Addressed: Chronic abdominal pain: chronic illness or injury with exacerbation, progression, or side effects of treatment Amount and/or Complexity of Data Reviewed External Data Reviewed: radiology and notes. Details: As noted in HPI Labs: ordered. Decision-making details documented in ED Course. Risk Prescription drug management. Medications lactated ringers bolus infusion 1,000 mL (0 mLs Intravenous Infusion Stop Time 08/03/24 1833) droperidol (INAPSINE) injection 2.5 mg (2.5 mg Intravenous Given 08/03/24 1728) pantoprazole (PROTONIX) 40 mg in sodium chloride (PF) 0.9 % 10 mL IV (40 mg Intravenous Given 08/03/24 1726) dicyclomine (BENTYL) intramuscular injection 20 mg (20 mg Intramuscular Given 08/03/24 1732) ketorolac (TORADOL) injection 30 mg (30 mg Intravenous Given 08/03/24 1813) Discharge Medication List as of 08/03/2024 7:29 PM Clinical Impression Chronic abdominal pain (Primary) Disposition: Discharge Nelida Carrziales MD 08/03/241943 * Vani Real RN - 08/03/2024 4:30 PM CDT Pt to ED from home with c/o abd pain, nausea, vomitting. Denies diarrhea, fever. Pain started suddenly about 1100 today. documented in this encounter Plan of Treatment Not on file documented as of this encounter Goals Goal Patient Goal Type Associated Problems Recent Progress Patient-Stated? Author Patient will return to prior living situation and remain independent in ADLs upon discharge from hospital Lifestyle No Sintia Zhao RN documented as of this encounter Procedures Procedure Name Priority Date/Time Associated Diagnosis Comments URINALYSIS, AUTO, COMPLETE STAT 08/03/2024 7:16 PM CDT COMPREHENSIVE METABOLIC PANEL STAT 08/03/2024 4:58 PM CDT CBC W/DIFF AUTOMATED STAT 08/03/2024 4:58 PM CDT LIPASE STAT 08/03/2024 4:58 PM CDT documented in this encounter Results * URINALYSIS, AUTO, COMPLETE (08/03/2024 7:16 PM CDT) COLOR (U) YELLOW 08/03/2024 7:[address] [facility] TRANSPARENCY CLEAR 08/03/2024 7:[address] [facility] SPECIFIC GRAVITY (U) <1.005 1.000 - 1.030 08/03/2024 7:[address] [facility] U PH 6.0 5.0 - 9.0 08/03/2024 7:[address] [facility] LEUKOCYTES (U) NEGATIVE NEGATIVE 08/03/2024 7:[address] [facility] NITRITES NEGATIVE NEGATIVE 08/03/2024 7:[address] [facility] PROTEIN RANDOM (U) NEGATIVE NEGATIVE 08/03/2024 7:[address] [facility] GLUCOSE (U) NEGATIVE NEGATIVE 08/03/2024 7:[address] [facility] KETONES MG/DL (U) NEGATIVE NEGATIVE 08/03/2024 7:[address] [facility] BILIRUBIN (U) NEGATIVE NEGATIVE 08/03/2024 7:[address] [facility] BLOOD (U) NEGATIVE NEGATIVE 08/03/2024 7:[address] [facility] WBC/HPF NONE SEEN 0 - 5 /HPF 08/03/2024 7:[address] [facility] RBC/HPF 0-5 0 - 5 /HPF 08/03/2024 7:[address] [facility] EPI/HPF RARE /HPF 08/03/2024 7:[address] [facility] BACTERIA (U) FEW /HPF 08/03/2024 7:[address] [facility] URINE SPECIMEN OBTAINED BY CLEAN CATCH PROCEDURE / Unknown 08/03/2024 7:16 PM CDT us Nelida Carrizales MD URINE ORDERABLES Final Res ult Performing Organization Address [facility]/ZIP Co de Phone Number [facility] [address] [place] [address], [place] [phone] * LIPASE (08/03/2024 4:58 PM CDT) LIPASE 33 16 - 77 UNITS/L 08/03/2024 5:[address] [facility] 08/03/2024 4:58 PM CDT us Nelida Carrizales MD LABORATORY Final Resu lt Performing Organization Address [facility]/ZIP Co de Phone Number [facility] [address] [place] [address], [place] [phone] * (ABNORMAL) COMPREHENSIVE METABOLIC PANEL (08/03/2024 4:58 PM CDT) GLUCOSE 127(H) 70 - 99 MG/DL 08/03/2024 5:[address] [facility] BUN 9 7 - 18 MG/DL 08/03/2024 5:[address] [facility] CREATININE S/P/B 0.97 0.7 - 1.3 MG/DL 08/03/2024 5:[address] [facility] SODIUM S/P/B 140 136 - 145 MMOL/L 08/03/2024 5:[address] [facility] POTASSIUM S/P/B 3.7 3.5 - 5.1 MMOL/L 08/03/2024 5:[address] [facility] CHLORIDE S/P/B 104 100 - 108 MMOL/L 08/03/2024 5:23 PM [facility] CO2 23.9 21 - 32 MMOL/L 08/03/2024 5:23 PM [facility] CALCIUM S/P/B 8.6 8.5 - 10.1 MG/DL 08/03/2024 5:23 PM [facility] BILIRUBIN TOTAL S/P/B 0.5 0.2 - 1.2 MG/DL 08/03/2024 5:23 PM [facility] TOTAL PROTEIN S/P/B 7.0 6.4 - 8.2 G/DL 08/03/2024 5:23 PM [facility] ALBUMIN S/P/B 3.9 3.4 - 5.0 G/DL 08/03/2024 5:23 PM [facility] AST 25 15 - 37 U/L 08/03/2024 5:23 PM [facility] ALT 28 16 - 60 U/L 08/03/2024 5:23 PM [facility] ALKALINE PHOSPHATASE S/P/B 86 50 - 136 U/L 08/03/2024 5:23 PM [facility] ANION GAP 12.1 5 - 15 MMOL/L 08/03/2024 5:23 PM [facility] BUN CREATININE RATIO 9.3 6 - 26 08/03/2024 5:23 PM [facility] A/G RATIO 1.3 1.0 - 2.0 RATIO 08/03/2024 5:23 PM [facility] GFR ESTIMATE >90 >90 ML/MIN/1.7 3 M2 08/03/2024 5:23 PM [facility] Comment: NOTE: eGFR is not calculated for patients <18 years of age. This is an estimated GFR calculation using the new CKD EPI creatinine equation without race and so does not require a correction factor for race. This estimated GFR should not be used for calculating drug doses. 08/03/2024 4:58 PM CDT us Nelida Carrizales MD LABORATORY Final Resu lt [facility] [address] [place] [address], * (ABNORMAL) CBC W/DIFF AUTOMATED (08/03/2024 4:58 PM CDT) WBC 17.48(H) 4.4 - 11.0 x10'3/uL 08/03/2024 5:[address] [facility] RBC 4.64 4.50 - 5.90 x10'6/uL 08/03/2024 5:[address] [facility] HGB 13.2(L) 14.0 - 17.5 G/DL 08/03/2024 5:[address] [facility] HCT 39.1(L) 41.5 - 50.4 % 08/03/2024 5:[address] [facility] MCV 84.3 80.0 - 96.0 FL 08/03/2024 5:[address] [facility] MCH 28.4 26.5 - 31.4 PG 08/03/2024 5:[address] [facility] MCHC 33.8 31.9 - 34.8 G/DL 08/03/2024 5:[address] [facility] RDW 16.2(H) 12.3 - 14.3 % 08/03/2024 5:[address] [facility] PLT 302 151 - 353 x10'3/uL 08/03/2024 5:[address] [facility] MPV 10.1 9.7 - 11.9 FL 08/03/2024 5:[address] [facility] RBC MORPHOLOGY NORMAL 08/03/2024 5:[address] [facility] PLT MORPH. NORMAL 08/03/2024 5:[address] [facility] WBC MORPHOLOGY NORMAL 08/03/2024 5:[address] [facility] LYMPHOCYTES % 4.6(L) 15.8 - 45.0 % 08/03/2024 5:[address] [facility] NEUTROPHILS % 91.2(H) 42.1 - 71.9 % 08/03/2024 5:[address] [facility] MONOCYTES % 3.3(L) 5.7 - 12.5 % 08/03/2024 5:[address] [facility] EOSINOPHILS 0.0 0.0 - 5.6 % 08/03/2024 5:[address] [facility] BASOPHILS 0.3 0.0 - 1.3 % 08/03/2024 5:[address] [facility] ABS. NEUTROPHILS 15.94(H) 1.40 - 6.00 x10'3/uL 08/03/2024 5:[address] [facility] IMMATURE GRANS % 0.6(H) 0.0 - 0.5 % 08/03/2024 5:[address] [facility] ABS. LYMPHOCYTES 0.80 0.80 - 4.70 x10'3/uL 08/03/2024 5:[address] [facility] 08/03/2024 4:58 PM CDT us Nelida Carrizales MD LABORATORY Final Resu lt [facility] [address] [place] [address], [place] [phone] documented in this encounter Visit Diagnoses Diagnosis Chronic abdominal pain- Primary Abdominal pain, unspecified site documented in this encounter Administered Medications Inactive Administered Medications - up to 3 most recent administrations Medication Order MAR Action Action Date Dose Rate Site dicyclomine (BENTYL) intramuscular injection 20 mg 20 mg, Intramuscular, Once, 1 dose, On Thu08/03/24 at 1715, intramuscular (IM) only Do NOT administer intravenous Given 08/03/2024 5:32 PM CDT 20 mg Left Deltoid droperidol (INAPSINE) injection 2.5 mg 2.5 mg, Intravenous, Once, 1 dose, On Thu08/03/24 at 1715, Prior to administration of single doses > 2.5 mg, patients should undergo EKG due to potential to cause serious cardiac arrhythmias. Mandatory EKG & continuous telemetry monitoring for all doses single doses > 2.5 mg & any cumulative dosing > 2.5 mg. If the QT interval is >440 elder-sec for males or >450 elder-sec for females, droperidol should be avoided. Given 08/03/2024 5:28 PM CDT 2.5 mg ketorolac (TORADOL) injection 30 mg 30 mg, Intravenous, Once, 1 dose, On Thu08/03/24 at 1815, For IV administration, give over 15 seconds. Given 08/03/2024 6:13 PM CDT 30 mg lactated ringers bolus infusion 1,000 mL 1,000 mL, Intravenous, Administer over 15 Minutes, Once, 1 dose, On Thu08/03/24 at 1715 New Bag 08/03/2024 5:23 PM CDT 1,000 mLs 4000 mL/hr pantoprazole (PROTONIX) 40 mg in sodium chloride (PF) 0.9 % 10 mL IV 40 mg, Intravenous, Once, 1 dose, On Thu08/03/24 at 1715, Reconstitute each 40 mg vial with 10 mL normal saline to a final concentration of 4 mg/mL. Administer intravenously over a period of a least 2 minutes. Given 08/03/2024 5:26 PM CDT 40 mg documented in this encounter Active and Recently Administered Medications Times are shown in CDT. Scheduled Medication Order 08/01/2024 08/02/2024 08/03/2024 dicyclomine (BENTYL) intramuscular injection 20 mg (COMPLETED) 20 mg, Intramuscular, Once, 1 dose, On Thu08/03/24 at 1715, intramuscular (IM) only Do NOT administer intravenous 1732 (Given - Provid er: Vani Real RN) droperidol (INAPSINE) injection 2.5 mg (COMPLETED) 2.5 mg, Intravenous, Once, 1 dose, On Thu08/03/24 at 1715, Prior to administration of single doses > 2.5 mg, patients should undergo EKG due to potential to cause serious cardiac arrhythmias. Mandatory EKG & continuous telemetry monitoring for all doses single doses > 2.5 mg & any cumulative dosing > 2.5 mg. If the QT interval is >440 elder-sec for males or >450 elder-sec for females, droperidol should be avoided. 1728 (Given - Provid er: Vani Real RN) ketorolac (TORADOL) injection 30 mg (COMPLETED) 30 mg, Intravenous, Once, 1 dose, On Thu08/03/24 at 1815, For IV administration, give over 15 seconds. 181 (Given - Provid er: Vani Real RN) lactated ringers bolus infusion 1,000 mL (COMPLETED) 1,000 mL, Intravenous, Administer over 15 Minutes, Once, 1 dose, On Thu08/03/24 at 1715 1723 (New Bag - Prov ider: Vani Real RN)1833 (Infusion Stop Time - Provider: Mary Jo Hernandez, JOHN) pantoprazole (PROTONIX) 40 mg in sodium chloride (PF) 0.9 % 10 mL IV (COMPLETED) 40 mg, Intravenous, Once, 1 dose, On Thu08/03/24 at 1715, Reconstitute each 40 mg vial with 10 mL normal saline to a final concentration of 4 mg/mL. Administer intravenously over a period of a least 2 minutes. 1726 (Given - Provid er: Vani Real RN) documented in this encounter Care Teams Bowling Ball Finisher Relationship Specialty Start Date End Date Td Lopez MD PCP - General FAMILY PRACTICE 08/18/19 documented as of this encounter
--- OUTSIDE RECORDS SUMMARY | 2024-08-05 18:05 | XMS_ITS | Clinical Summary ---
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 Gender Identity Not on file Sexual Orientation Not on file Last Filed Vital Signs Vital Sign Reading Time Taken Comments Blood Pressure 119/84 07/11/2022 2:03 AM LUBRICATION WORKER Pulse 80 07/11/2022 2:03 AM LUBRICATION WORKER Temperature 36.3 C (97.4 F) 07/11/2022 2:03 AM LUBRICATION WORKER Respiratory Rate 18 07/11/2022 2:03 AM LUBRICATION WORKER Oxygen Saturation 97% 07/11/2022 2:03 AM LUBRICATION WORKER Inhaled Oxygen Concentration - - Weight 79.4 kg (175 lb) 07/10/2022 8:06 PM LUBRICATION WORKER Height 177.8 cm (5' 10 ) 07/10/2022 8:06 PM LUBRICATION WORKER Body Mass Index 25.11 07/10/2022 8:06 PM LUBRICATION WORKER Plan of Treatment Health Maintenance Due Date Last Done Comments HEPATITIS B VACCINES (1 of 3 - 19+ 3-dose series) 2000 INFLUENZA VACCINE (#1) 2023 , 02/29/2020, 02/09/2018 COVID-19 Vaccine ( season) 2024 10/29/2021, 11/02/2020, 10/05/2020 DTAP/TDAP/TD VACCINES (2 - Td or Tdap) 10/30/2031 10/29/2021 HPV VACCINES Aged Out No longer eligi ble based on patient's age to complete this topic Insurance [facility] MEDICAID MEDICAID [id number]
--- OUTSIDE RECORDS SUMMARY | 2024-08-05 18:05 | XMS_ITS | Clinical Summary ---
Author Organization [facility] Address [facility] [place] [address] Care Team Providers Care Gauge Checker Name Role Phone Td Lopez MD Primary Care Provider [phone] Allergies Active Allergy Reactions Criticality Noted Date Comments Capsaicin Other (see comment) Low 05/20/2019 Pt states it gets into his scars and causes a lot of pain Doxycycline GI Upset Low 03/29/2017 Haloperidol Other (see comment) 01/29/2022 Musculoskeletal pain Metoclopramide Myalgias 03/29/2017 Sulfa Antibiotics Myalgias,Other (see comment) Medium 03/29/2017 Reaction: neurological symptoms per patient Medications CREON [id number] units CAPSULE ENTERIC COATED PARTICLES Take 36,000 [...] pain 10/18/2022 Abdominal pain 10/18/2022 Acute pancreatitis ([facility]) 09/28/2022 Renal infarct ([facility]) 09/08/2022 Marijuana use 09/04/2022 Normocytic normochromic anemia 09/04/2022 Sphincter of Oddi dysfunction 09/04/2022 Tobacco use disorder, continuous 09/04/2022 Pancreatitis ([facility]) 09/02/2022 GI bleed 06/28/2022 Folliculitis 01/08/2022 Overview (09/04/2022): Last Assessment & Plan: - chronic, uncontrolled - start clindamycin gel daily x 7 days - ref to derm for eval. Manipulative behavior 07/14/2021 COVID-19 vaccine series completed 06/27/2021 Overview (09/04/2022): Moderna x2 Drug-seeking behavior 06/27/2021 History of 2019 novel coronavirus disease (COVID -19) 06/27/2021 Drug abuse and dependence ([facility]) 09/2020 Overview (09/04/2022): Last Assessment & Plan: - using mariajuana occasionally; has had frequent rx for opioids in ER - pt claims at least several days since last ER visit with narcotics given - record review suggests at least 2 wks - will check UDS Acute recurrent pancreatitis ([facility]) Other chronic pancreatitis ([facility]) Overview (09/04/2022): Last Assessment & Plan: - stable today - continue current medications - f/u with Dr Rosas as planned - encouraged pt to come to clinic instead of going to ER next time he has abdominal pain 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/27/2020 Hyperemesis 10/18/2019 Annual physical exam 07/15/2019 [...] when able Colitis 02/18/2019 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/18/2018 Mild malnutrition ([facility]) 10/18/2018 Neutrophilic leukocytosis 10/18/2018 Tobacco use disorder 10/18/2018 Other chronic pancreatitis ([facility]) 02/2019 Overview (02/18/2019): Overview: Added automatically from request for surgery [id number] Chronic abdominal pain 03/30/2017 Assessment & Plan (03/30/2017 12:03 PM ELECTRICAL EQUIPMENT TESTER): Acute on chronic, stable Patient with possible [...] Continue to advance diet as tolerated Sepsis ([facility]) 03/30/2017 Assessment & Plan (03/30/2017 12:03 PM ELECTRICAL EQUIPMENT TESTER): Present on admission, resolved Lactic acid 2.8 [...] 03/30/2017 Assessment & Plan (03/30/2017 12:25 AM ELECTRICAL EQUIPMENT TESTER): - established, controlled - continue home fluoxetine, nortriptyline GERD (gastroesophageal reflux disease) 7 Assessment & Plan (03/30/2017 12:25 AM ELECTRICAL EQUIPMENT TESTER): - established, controlled - continue home nexium Hypertension 03/30/2017 Overview (03/30/2017): - established, controlled - continue home metoprolol Assessment & Plan (03/30/2017 1:01 AM ELECTRICAL EQUIPMENT TESTER): - established, controlled - continue home metoprolol Influenza 03/30/2017 Depression 03/30/2017 Overview (02/18/2019): Overview: Last Assessment & Plan: - established, controlled - continue home fluoxetine, nortriptyline Flu 03/29/2017 Assessment & Plan (03/30/2017 12:03 PM ELECTRICAL EQUIPMENT TESTER): Acute, influenza A + on admission, asymptomatic [...] Encounters Date Type Department Care Team Description 08/03/2024 4:28 PM CDT - 08/03/2024 7:38 PM CDT Emergency [facility] Emergency Room [id number] [place] [id number] Nelida Carrizales MD Abdominal Pain Discharge Disposition: Home or Self Care (Routine Discharge) 08/03/2024 Travel 06/21/2024 7:22 PM ELECTRICAL EQUIPMENT TESTER - 06/21/2024 10:29 PM ELECTRICAL EQUIPMENT TESTER Emergency [facility] Emergency Room [id number] [place] [id number] Checo Condon MD Vomiting Discharge Disposition: Home or Self Care (Routine Discharge) 06/21/2024 Travel from Last 3 Months Family History [...] week 09/28/2022 How often do you attend rastafari or christian serv ices? Never 09/28/2022 Do you belong [...] and heating? Not hard at all 10/18/2022 [facility] - [facility] Stress [...] place to sleep or slept in a snf (including now)? No 10/18/2022 Sex and Gender Information Value Date Recorded Sex Assigned at Male 06/21/2024 7:21 PM ELECTRICAL EQUIPMENT TESTER Legal Sex Male 8:10 AM CDT Gender [...] Mass Index 23.68 08/03/2024 4:34 PM CDT Plan of Treatment Health Maintenance Due Date Last Done Comments Annual Physical 1984 Pneumococcal Vaccine: Pediatrics (0 to 5 Years) and At-Risk Patients (6 to 64 Years) (1 of 2 - PCV) 1987 Hepatitis B Vaccines (1 of 3 - 19+ 3-dose series) 2000 COVID-19 Vaccine (2023-2 5 season) 2024 10/29/2021, 11/02/2020, 10/05/2020 DTaP, Tdap and Td Vaccines ( 2 - Td or Tdap) 10/30/2031 10/29/2021 Hepatitis C Completed 03/27/2018 HPV Vaccines Aged Out No longer eligi ble based on patient's age to complete this topic Meningococcal B Vaccine Aged Out No l onger eligible based on patient's age to complete this topic Meningococcal Vaccine Aged Out No erasmo karthik eligible based on patient's age to complete this topic RSV Immunizations Under 20 Months Aged Out No longer eligible b ased on patient's age to complete this topic Goals Goal Patient Goal Type Associated Problems Recent Progress Patient-Stated? Author Patient will return to prior living situation and remain independent in ADLs upon discharge from hospital Lifestyle No Sintia Zhao, draughtsman Procedure Name Priority Date/Time Associated Diagnosis Comments URINALYSIS, AUTO, COMPLETE STAT 08/03/2024 7:16 PM CDT LIPASE STAT 08/03/2024 4:58 PM CDT COMPREHENSIVE METABOLIC PANEL STAT 08/03/2024 4:58 PM CDT CBC W/DIFF AUTOMATED STAT 08/03/2024 4:[address] ABD+PEL W CON STAT 06/21/2024 9:50 PM ELECTRICAL EQUIPMENT TESTER URINALYSIS, AUTO, COMPLETE STAT 06/21/2024 9:14 PM ELECTRICAL EQUIPMENT TESTER LIPASE STAT 06/21/2024 7:58 PM ELECTRICAL EQUIPMENT TESTER COMPREHENSIVE METABOLIC PANEL STAT 06/21/2024 7:34 PM ELECTRICAL EQUIPMENT TESTER CBC W/DIFF AUTOMATED STAT 06/21/2024 7:34 PM ELECTRICAL EQUIPMENT TESTER from Last 3 Months Results * URINALYSIS, AUTO, COMPLETE (08/03/2024 7:16 PM CDT) Only the most recent of2 resultswithin the time period is included. COLOR (U) YELLOW 08/03/2024 7:32 PM CDT [facility] TRANSPARENCY CLEAR 08/03/2024 7:32 PM CDT [facility] SPECIFIC GRAVITY (U) <1.005 1.000 - 1.030 08/03/2024 7:32 PM CDT [facility] U PH 6.0 5.0 - 9.0 08/03/2024 7:32 PM CDT [facility] LEUKOCYTES (U) NEGATIVE NEGATIVE 08/03/2024 7:32 PM CDT [facility] NITRITES NEGATIVE NEGATIVE 08/03/2024 7:32 PM CDT [facility] PROTEIN RANDOM (U) NEGATIVE NEGATIVE 08/03/2024 7:32 PM CDT [facility] GLUCOSE (U) NEGATIVE NEGATIVE 08/03/2024 7:32 PM CDT [facility] KETONES MG/DL (U) NEGATIVE NEGATIVE 08/03/2024 7:32 PM CDT [facility] BILIRUBIN (U) NEGATIVE NEGATIVE 08/03/2024 7:32 PM CDT [facility] BLOOD (U) NEGATIVE NEGATIVE 08/03/2024 7:32 PM CDT [facility] WBC/HPF NONE SEEN 0 - 5 /HPF 08/03/2024 7:32 PM CDT [facility] RBC/HPF 0-5 0 - 5 /HPF 08/03/2024 7:32 PM CDT [facility] EPI/HPF RARE /HPF 08/03/2024 7:32 PM CDT [facility] BACTERIA (U) FEW /HPF 08/03/2024 7:32 PM CDT [facility] URINE SPECIMEN OBTAINED BY CLEAN CATCH PROCEDURE / Unknown 08/03/2024 7:16 PM CDT us Nelida Carrizales MD URINE ORDERABLES Final Res ult [facility] [address] [place] [address], [place] [phone] * (ABNORMAL) COMPREHENSIVE METABOLIC PANEL (08/03/2024 4:58 PM CDT) Only the most recent of2 resultswithin the time period is included. [facility] GLUCOSE 127(H) 70 - 99 MG/DL 08/03/2024 5:23 PM CDT [facility] BUN 9 7 - 18 MG/DL 08/03/2024 5:23 PM CDT [facility] CREATININE S/P/B 0.97 0.7 - 1.3 MG/DL 08/03/2024 5:23 PM T [facility] SODIUM S/P/B 140 136 - 145 MMOL/L 08/03/2024 5:23 PM CDT [facility] POTASSIUM S/P/B 3.7 3.5 - 5.1 MMOL/L 08/03/2024 5:23 PM CDT [facility] CHLORIDE S/P/B 104 100 - 108 MMOL/L 08/03/2024 5:23 PM CDT [facility] CO2 23.9 21 - 32 MMOL/L 08/03/2024 5:23 PM CDT [facility] CALCIUM S/P/B 8.6 8.5 - 10.1 MG/DL 08/03/2024 5:23 PM T [facility] BILIRUBIN TOTAL S/P/B 0.5 0.2 - 1.2 MG/DL 08/03/2024 5:23 PM T [facility] TOTAL PROTEIN S/P/B 7.0 6.4 - 8.2 G/DL 08/03/2024 5:23 PM T [facility] ALBUMIN S/P/B 3.9 3.4 - 5.0 G/DL 08/03/2024 5:23 PM T [facility] AST 25 15 - 37 U/L 08/03/2024 5:23 PM CDT [facility] ALT 28 16 - 60 U/L 08/03/2024 5:23 PM CDT [facility] ALKALINE PHOSPHATASE S/P/B 86 50 - 136 U/L 08/03/2024 5:23 PM CDT [facility] ANION GAP 12.1 5 - 15 MMOL/L 08/03/2024 5:23 PM CDT [facility] BUN CREATININE RATIO 9.3 6 - 26 08/03/2024 5:23 PM CDT [facility] A/G RATIO 1.3 1.0 - 2.0 RATIO 08/03/2024 5:23 PM CDT [facility] GFR ESTIMATE >90 >90 ML/MIN/1.7 3 M2 08/03/2024 5:23 PM CDT [facility] Comment: NOTE: eGFR is not calculated for patients <18 years of age. This is an estimated GFR calculation using the new CKD EPI creatinine equation without race and so does not require a correction factor for race. This estimated GFR should not be used for calculating drug doses. 08/03/2024 4:58 PM CDT us Nelida Carrizales MD LABORATORY Final Resu lt [facility] [address] [place] [address], [place] [phone] * (ABNORMAL) CBC W/DIFF AUTOMATED (08/03/2024 4:58 PM CDT) Only the most recent of2 resultswithin the time period is included. WBC 17.48(H) 4.4 - 11.0 x10'3/uL 08/03/2024 5:13 PM CDT [facility] RBC 4.64 4.50 - 5.90 x10'6/uL 08/03/2024 5:13 PM CDT [facility] HGB 13.2(L) 14.0 - 17.5 G/DL 08/03/2024 5:13 PM CDT [facility] HCT 39.1(L) 41.5 - 50.4 % 08/03/2024 5:13 PM CDT [facility] MCV 84.3 80.0 - 96.0 FL 08/03/2024 5:13 PM CDT [facility] MCH 28.4 26.5 - 31.4 PG 08/03/2024 5:13 PM CDT [facility] MCHC 33.8 31.9 - 34.8 G/DL 08/03/2024 5:13 PM CDT [facility] RDW 16.2(H) 12.3 - 14.3 % 08/03/2024 5:13 PM CDT [facility] PLT 302 151 - 353 x10'3/uL 08/03/2024 5:13 PM CDT [facility] MPV 10.1 9.7 - 11.9 FL 08/03/2024 5:13 PM CDT [facility] RBC MORPHOLOGY NORMAL 08/03/2024 5:13 PM CDT [facility] PLT MORPH. NORMAL 08/03/2024 5:13 PM CDT [facility] WBC MORPHOLOGY NORMAL 08/03/2024 5:13 PM CDT [facility] LYMPHOCYTES % 4.6(L) 15.8 - 45.0 % 08/03/2024 5:13 PM CDT [facility] NEUTROPHILS % 91.2(H) 42.1 - 71.9 % 08/03/2024 5:13 PM CDT [facility] MONOCYTES % 3.3(L) 5.7 - 12.5 % 08/03/2024 5:13 PM CDT [facility] EOSINOPHILS 0.0 0.0 - 5.6 % 08/03/2024 5:13 PM CDT [facility] BASOPHILS 0.3 0.0 - 1.3 % 08/03/2024 5:13 PM CDT [facility] ABS. NEUTROPHILS 15.94(H) 1.40 - 6.00 x10'3/uL 08/03/2024 5:13 PM CDT [facility] IMMATURE GRANS % 0.6(H) 0.0 - 0.5 % 08/03/2024 5:13 PM CDT [facility] ABS. LYMPHOCYTES 0.80 0.80 - 4.70 x10'3/uL 08/03/2024 5:13 PM CDT [facility] 08/03/2024 4:58 PM CDT Nelida Carrizales MD LABORATORY Final Resu lt Performing Organization Address City/[facility]/ZIP Co de Phone Number [facility] [address] [place] [address], [place] [phone] * LIPASE (08/03/2024 4:58 PM CDT) Only the most recent of2 resultswithin the time period is included. LIPASE 33 16 - 77 UNITS/L 08/03/2024 5:23 PM CDT [facility] 08/03/2024 4:58 PM CDT Nelida Carrizales MD LABORATORY Final Resu lt [facility] [address] [place] [address], [place] [phone] * CT ABD+PEL W CON (06/21/2024 9:50 PM ELECTRICAL EQUIPMENT TESTER) Anatomical Region Laterality Modality Abdomen Computed Tomogra phy 06/21/2024 9:59 PM ELECTRICAL EQUIPMENT TESTER Impressions 06/21/2024 10:01 PM ELECTRICAL EQUIPMENT TESTER IMPRESSION: ===== 1. No acute abdominal or pelvic abnormalities. No specific CT findings to explain patient's symptoms. 2. Small inguinal hernias containing only fat. 3. Stable pneumobilia. Referred By: Interpreted By: Jayy De La Torre MD, 06/21/2024 9:59 PM Narrative 06/21/2024 10:01 PM ELECTRICAL EQUIPMENT TESTER [facility] [address] [facility] [place] [address] EXAMINATION: CT Abdomen and Pelvis with contrast [...] Jayy De La Torre MD - 06/21/2024 [facility] [address] [place] [address] EXAMINATION: CT Abdomen and Pelvis with contrast [...] PM Checo Condon MD CT Final Result from Last 3 Months Insurance LEONARD MERIDIAN [...] 6:07 PM 10/19/2019 4:11 PM Care Teams Gauge Checker Relationship Specialty Start Date End Date Td Lopez MD PCP - General FAMILY PRACTICE 08/18/19
--- OUTSIDE RECORDS SUMMARY | 2024-08-05 18:05 | XMS_ITS | Clinical Summary ---
Author Organization [facility] [employer] Address [address] [place] [address] Care Team Providers Care Bulking Machine Operator Name Role Phone Alee Zhao MD Primary Care Provider [phone] Source Comments [facility] [employer],non-owned Affiliates and Associated Physician Practices is amultiple site organization consisting of ambulatory clinics and hospital sitesin [place], [place], [place] and [place]. This disclosure is being madepursuant to the Care Everywhere program and may not contain all information available regarding this patient. Last updated 18.[facility] [employer] Allergies Active Allergy Reactions Criticality Noted Date [...] Comments Blood Pressure 120/71 03/17/2019 5:03 PM SHREDDER TENDER PEAT Pulse 75 03/17/2019 5:03 PM [employer]DER T[employer]AT Temperature 36.9 C (98.4 F) 03/17/2019 2:00 PM SHREDDER TENDER PEAT Respiratory Rate 17 03/17/2019 5:03 PM SHREDDER TENDER PEAT Oxygen Saturation 99% 03/17/2019 5:03 PM SHREDDER TENDER PEAT Inhaled Oxygen Concentration - - Weight 77.1 kg (170 lb) 03/17/2019 2:00 PM SHREDDER TENDER PEAT Height 177.8 cm (5' 10 ) 03/17/2019 2:00 PM SHREDDER TENDER PEAT Body Mass Index 24.39 03/17/2019 2:00 PM SHREDDER TENDER PEAT Plan of Treatment Health Maintenance Due Date Last Done Comments LIPID TESTING 1981 DTAP/TDAP/TD VACCINES (1 - Tdap) 2000 HEPATITIS B VACCINE (1 of 3 - 19+ 3-dose series) 2000 COVID-19 VACCINE (2023-2 5 season) 2024 INFLUENZA VACCINE (#1) 2024 DEPRESSION SCREENING 05/11/2024 ZOSTER VACCINE (1 of 2) 2031 HEPATITIS C SCREENING Completed 03/27/2018 HIV SCREENING Completed 03/27/2018 HIB VACCINE Aged Out No longer eligi ble based on patient's age to complete this topic HPV VACCINE Aged Out No longer eligi ble based on patient's age to complete this topic MENINGOCOCCAL (Group B) VACC INE SHARED DECISION-MAKING Aged Out No longer eligibl e based on patient's age to complete this topic MENINGOCOCCAL GROUPS A/C/Y/W VACCINE Aged Out No longer eligible b ased on patient's age to complete this topic PNEUMOCOCCAL VACCINE Aged Out No long er eligible based on patient's age to complete this topic Procedures Procedure Name Priority Date/Time Associated Diagnosis Comments HEPATITIS C AB SCREEN RFLX NAAT QUANT STAT 03/27/2018 9:12 PM SHREDDER TENDER PEAT HIV-1 HIV-2 ANTIGEN/ANTIBODY STAT 03/27/2018 9:12 PM SHREDDER TENDER PEAT from Last 3 Months or Most Recently Relevant to Health Maintenance Results * HIV-1 HIV-2 ANTIGEN/ANTIBODY (03/27/2018 9:12 PM SHREDDER TENDER PEAT) HIV Antigen/Antibod y 1 & 2 Non-reacti ve Non-react nemesio 03/27/2018 10:17 PM SHREDDER TENDER PEAT [facility] Comment: Neither HIV-1 p24 Antigen nor HIV-1/HIV-2 Antibodies are detected. Blood BLOOD SPECIMEN / Unknown Venipuncture / Unknown 03/27/2018 9:12 PM SHREDDER TENDER PEAT 03/27/2018 9:21 PM [employer]REDDER TENDER PEAT Davi Patrick MD LAB - HEMATOLOGY ORD ERABLES [address] [phone] * HEPATITIS C AB SCREEN RFLX NAAT QUANT (03/27/2018 9:12 PM SHREDDER TENDER PEAT) Pathologist [facility] Hepatitis C Antibody Non-react nemesio Non-reac tive 03/27/2018 10:20 PM SHREDDER TENDER PEAT [facility] Comment: Hepatitis C Antibody screen indicates no serologic evidence of past or current infection with Hepatitis C Virus. Patients with unexplained liver disease who are immunocompromised or suspected of having acute Hepatitis C infection may benefit from Nucleic Acid Test (RINKU) for Hepatitis C Viral RNA to confirm Hepatitis C status. Blood BLOOD SPECIMEN / Unknown Venipuncture / Unknown 03/27/2018 9:12 PM SHREDDER TENDER PEAT 03/27/2018 9:21 PM SHREDDER TENDER [employer]AT Davi Patrick MD LAB - [place] [address], [facility] [phone] from Last 3 Months or Most Recently Relevant to Health Maintenance Care Teams Bulking Machine Operator Relationship Specialty Start Date End Date Alee Zhao MD [address] [place] [phone] PCP - General Family Medicine 03/25/18
--- OUTSIDE RECORDS SUMMARY | 2024-08-05 18:05 | XMS_ITS | Clinical Summary ---
Author Organization [facility] Address [address] [place] [address] Care Team Providers Care Satellite Manager Name Role Phone Td Lopez MD Primary Care Provider + Angie Woodard MD Unavailable [phone] Vimal Woodruff MD Unavailable [phone] Allergies Active Allergy Reactions Criticality Noted Date [...] neurological symptoms per patient Medications famotidine (PEPCID) 40 mg tablet Take 1 tablet (40 mg total) by mouth daily Active hyoscyamine (OSCIMIN) 0.125 mg Take 1 tablet (0.125 mg total) by mouth every 8 (eight) hours as needed 01/25/20 24 Active prochlorperazine (COMPAZINE) 10 mg tablet Take 1 tablet (10 mg total) by mouth 2 (two) times a day as needed for nausea or vomiting 10 tablet 05/20/19 25 Active ondansetron ODT (ZOFRAN-ODT) 4 mg disintegrating tablet Take 1 tablet (4 mg total) by mouth every 8 (eight) hours as needed for nausea or vomiting 20 tablet 06/27/19 Active famotidine (PEPCID) 40 mg tablet Take 1 tablet (40 mg total) by mouth daily 30 tablet 08/03/19 25 2025 Active naloxone (NARCAN) 4 mg/actuation spray,non-aerosol Administer 1 spray into affected nostril(s) as needed for opioid reversal Call 911. Administer a single spray in one nostril. Repeat every 3 minutes as needed if no or minimal response. 1 each 2 02/21/20 24 2024 Discontinued Active Problems Problem Noted Date Diagnosed Date Neck pain 03/25/2024 Assessment & Plan (03/25/2024 11:50 AM DIGITAL ACCOUNT SUPERVISOR): - suspect just muscle strain - will check xray - offered PT but pt refused. 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 Assessment & Plan (03/25/2024 11:49 AM DIGITAL ACCOUNT SUPERVISOR): - ref to derm for eval Drug abuse and dependence 02/12/2021 Overview (01/10/2023): Last Assessment & Plan: - using mariajuana occasionally; has had frequent rx for opioids in ER - pt claims at least several days since last ER visit with narcotics given - record review suggests at least 2 wks - will check UDS Chronic pancreatitis 12/21/2020 Overview (02/03/2023): Last Assessment & Plan: - stable today - continue current medications - f/u with Dr Woodard as planned - encouraged pt to come to clinic instead of going to ER next time he has abdominal pain Assessment & Plan (03/25/2024 11:49 AM DIGITAL ACCOUNT SUPERVISOR): - poor control - continue hyosciamine, famotidine, zofran - ref to GI for continued treatment Assessment & Plan (03/20/2023 11:07 AM DIGITAL ACCOUNT SUPERVISOR): - stable - continue current medication Duodenal [...] medication Assessment & Plan (07/15/2019 11:44 AM DIGITAL ACCOUNT SUPERVISOR): - stable - continue creon Annual physical [...] able Assessment & Plan (07/15/2019 11:46 AM DIGITAL ACCOUNT SUPERVISOR): - encourage healthy diet, exercise - check labs - encouraged quitting smoking 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 Assessment & Plan (07/15/2019 11:37 AM DIGITAL ACCOUNT SUPERVISOR): - encouraged pt to quit smoking Abdominal [...] GI Assessment & Plan (03/20/2023 11:07 AM DIGITAL ACCOUNT SUPERVISOR): - stable - continue current medication per [...] acne 01/10/2023 03/18/2023 Partial small bowel obstruction 01/10/2023 09/25/2023 SIRS (systemic inflammatory response syndrome) [...] 09/17/202209/08 Assessment & Plan (03/20/2023 11:08 AM DIGITAL ACCOUNT SUPERVISOR): - stable off meds - will monitor [...] (06/27/2021): Moderna x2 Acute on chronic pancreatitis 06/15/2021 09/25/2023 Hyperleukocytosis 06/15/2021 03/18/2023 Drug abuse and dependence 02/12/2021 Assessment & Plan (02/12/2021 11:22 AM CDT): - using mariajuana occasionally; has had frequent rx for opioids in ER - pt claims at least several days since last ER visit with narcotics given - record review suggests at least 2 wks - will check UDS Acute recurrent pancreatitis 01/07/2021 09/25/2023 Other chronic pancreatitis 12/21/2020 0 09/25/2023 Assessment & Plan (03/26/2021 11:41 AM DIGITAL ACCOUNT SUPERVISOR): - stable today - continue current medications [...] lexapro Assessment & Plan (07/15/2019 11:38 AM DIGITAL ACCOUNT SUPERVISOR): - stable - continue current plan Gastroesophageal reflux dise ase without esophagitis 07/15/2019 03/18/2023 Overview (07/15/2019): - GERD managed by Dr Woodard - Pt on omeprazole and carafate for sx control Assessment & Plan (01/01/2021 12:09 PM CDT): - stable - continue current medication Assessment & Plan (02/07/2020 2:32 PM CDT): - stable - continue current medication Assessment & Plan (07/15/2019 11:38 AM DIGITAL ACCOUNT SUPERVISOR): - stable - continue omeprazole and carafate [...] prn Assessment & Plan (07/15/2019 11:44 AM DIGITAL ACCOUNT SUPERVISOR): - stable - continue bentyl and amitriptyline per GI recs Viral illness 07/08/2019 02/12/2021 Assessment & Plan (07/09/2019 9:12 AM DIGITAL ACCOUNT SUPERVISOR): Medrol Dosepak as directed. Recommended Mucinex plain [...] (09/17/2018): Added automatically from request for surgery [id number] Assessment & Plan (02/12/2021 11:23 AM CDT): - encouraged pt to f/u with new GI - continue hyoscyamine Assessment & Plan (01/01/2021 12:10 PM CDT): - continue prn oxycodone for now - discussed need to wean off of this as this is not a viable senior care solution - will ref to pain management [...] medication Assessment & Plan (07/15/2019 11:36 AM DIGITAL ACCOUNT SUPERVISOR): - controlled - continue current plan Chronic [...] Encounters Date Type Department Care Team Description 08/04/2024 [facility] [address] [address] Alannah Baumann MA 08/03/2024 2:13 PM CDT - 08/03/2024 3:27 PM CDT Emergency [facility] Emergency Department [address] [place] [id number] Freddy Yao DO Chronic abdominal pain (Primary Dx); Drug-seeking behavior Discharge Disposition: Discharge to home or self care 08/03/2024 [facility] [address] [address] Alannah Baumann MA 08/02/2024 8:48 AM CDT - 08/02/2024 10:46 AM CDT Emergency [facility] Emergency Department [address] [place] [id number] Chronic abdominal pain (Primary Dx) Discharge Disposition: Discharge to home or self care 07/01/2024 [facility] [address] [address] Alannah Baumann MA 06/30/2024 [facility] [address] [address] Alannah Baumann MA 06/29/2024 [facility] Out[facility] [address] [address] Alannah Baumann MA 06/27/2024 9:01 AM DIGITAL ACCOUNT SUPERVISOR - 06/27/2024 12:15 PM DIGITAL ACCOUNT SUPERVISOR Emergency [facility] Emergency Department [address] [place] [id number] Bernard Bruce MD Chronic pancreatitis, unspecified pancreatitis type (HCC) (Primary Dx) Discharge Disposition: Discharge to home or self care 06/19/2024 7:49 PM DIGITAL ACCOUNT SUPERVISOR - 06/19/2024 11:01 PM [facility] Emergency [facility] Emergency Department [address] [place] [address] Terri Fuentes MD Chronic abdominal pain (Primary Dx); Nausea and vomiting, unspecified vomiting type; Leukocytosis, unspecified type Discharge Disposition: Discharge to home or self care 05/30/2024 Documentation [facility] Medical Office Bl 1 OP Physical Therapy [address] [place] [phone] Clem Traylor, CHILD WELFARE MANAGER No Show 05/26/2024 7:15 AM [facility] Medical Office [facility] 1 OP Physical Therapy [address] [place] [phone] Nelda Perez, PT Neck pain (Primary Dx) 05/26/2024 7:00 AM [facility] Medical Office [facility] 1 OP Physical Therapy [address] [place] [phone] Yuliya Fernández, CHILD WELFARE MANAGER Neck pain (Primary Dx) 05/20/2024 4:35 PM DIGITAL ACCOUNT SUPERVISOR - 05/20/2024 9:[address] [address] Abdominal pain (Primary Dx) Discharge Disposition: Discharge to home or self care 05/19/2024 12:45 PM [facility] Medical Office [facility] 1 OP Physical Therapy [address] [place] [phone] Clem Traylor, CHILD WELFARE MANAGER Neck pain (Primary Dx) 05/12/2024 7:45 AM [facility] Medical Office [facility] 1 OP Physical Therapy [address] [place] [phone] Clem Traylor, CHILD WELFARE MANAGER Neck pain (Primary Dx) from Last 3 Months Immunizations Immunization Administration Dates Next Due Influenza, Quadrivalent, Spl [...] vomiting syndrome Cannabis abuse with cannabis-induced disorder Anxiety and depression Pancreatic insufficiency Drug-seeking behavior [...] drink = 0.6 oz pur e alcohol) [facility] [employer] Answer Date Recorded In the past 12 months has [employer] electric, gas, oil, or water [facility] threatened to shut off services in [...] 09/21/2023 How often do you attend chur [employer] or alevism services? Never 09/21/2023 Do you belong to any clubs o r organizations such as alevism groups, unions, fraternal or athletic groups, or [...] place to sleep or slept in a half-way (including now)? No 09/21/2023 PHQ-9 Answer Date Recorded PHQ-9 Total Score 5 03/25/2024 Personal Safety Answer Date Recorded Have you ever been in or are you currently in a harmful physical or emotional relationship or is someone making you feel afraid or unsafe? Denies 08/03/2024 Sex and Gender Information Value Date Recorded Sex Assigned at Not on file Legal Sex Male 3:38 AM DIGITAL ACCOUNT SUPERVISOR Gender Identity Not on file Sexual Orientation Not on file Obstetrics History Last Filed Vital Signs Vital Sign Reading Time Taken Comments Blood Pressure 163/104 08/03/2024 2:25 PM CDT Pulse 82 08/03/2024 2:25 PM CDT Temperature 37.1 C (98.8 F) 08/03/2024 1:38 PM CDT Respiratory Rate 22 08/03/2024 2:25 PM CDT Oxygen Saturation 98% 08/03/2024 2:25 PM CDT Inhaled Oxygen Concentration - - Weight 78.2 kg (172 lb 6.4 oz) 08/03/2024 1:38 P M CDT Height 177.8 cm (5' 10 ) 08/03/2024 1:38 PM CDT Body Mass Index 24.74 08/03/2024 1:38 PM CDT Plan of Treatment Health Maintenance Due Date Last Done Comments Hepatitis C Screening 1981 Hepatitis B Screening 1999 Pneumococcal vaccine <65 (1 of 2 - PCV) 2000 Covid-19 Vaccine ( season) 2024 10/29/2021, 11/02/2020, [...] Vaccines Discontinued Medical Devices Explanted Type Area Stallion Manager Device Identifier Shelf Expiration Date Model / Serial / Lot [employer] [id number] Connell Flexi-Stent 7fr 5cm Small Pigtail Flexible .035in Stent - [id number] Implanted:Qty: 1 on 09/18/2018 by Vimal Woodruff MD at [facility] Explanted:Qty: 1 on 09/20/2018 at [facility] Stent N/A: Pancreas [employer] 06/10/2023 [id number] / / [id number] Conmed Gina [id number] [place] Viabil 10mm 8.5fr 6cm 200cm Fully Covered Self Expand Pull - [id number] - [id number] Implanted:Qty: 1 on 09/18/2018 by Vimal Woodruff MD at [facility] Explanted:Qty: 1 on 09/20/2018 at [facility] Stent N/A: Bile Duct Conmed Gina 06/29/2021 [id number] / [id number] / [employer] Connell Flexi-Stent 7fr 9cm Small Pigtail Flexible .035in Stent 6575 - [id number] Implanted:Qty: 1 on 02/07/2022 by Vimal Woodruff MD at [facility] Explanted:Qty: 1 on 02/10/2022 by Vimal Woodruff MD at [facility] Stent N/A: Pancreas [employer] 09/07/2026 [id number] / / [id number] [employer] Gina Wallflex 10mm X 60mm Fully Covered Biliary [id number] - [id number] Implanted:Qty: 1 on 02/07/2022 by Vimal Woodruff MD at [facility] Explanted:Qty: 1 on 02/10/2022 by Vimal Woodruff MD at [facility] Stent N/A: Bile Duct [employer] Gina 11/04/2023 [id number] / / [id number] [employer] Connell Flexi-Stent 7fr 9cm Small Pigtail Flexible .035in Stent 6575 - [id number] Implanted:Qty: 1 on 09/21/2023 by Vimal Woodruff MD at [facility] Explanted:Qty: 1 on 09/23/2023 by Vimal Woodruff MD at [facility] Stent N/A: Pancreas [employer] 03/11/2028 [id number] / / [id number] Description:Not present at eginning of case. Self migrated out [employer] Gina Wallflex 10mm X 60mm Fully Covered Biliary [id number] - [id number] Implanted:Qty: 1 on 09/21/2023 by Vimal Woodruff MD at [facility] Explanted:Qty: 1 on 09/23/2023 by Vimal Woodruff MD at [facility] Stent N/A: Bile Duct [employer] Gina 08/02/2025 [id number] / / [id number] Procedures Procedure Name Priority Date/Time Associated Diagnosis Comments URINALYSIS AND REFLEX TO MICROSCOPIC AND CULTURE STAT 08/03/2024 1:50 PM CDT EGFR STAT 08/03/2024 1:45 PM CDT DIFFERENTIAL AUTO STAT 08/03/2024 1:4 5 PM CDT LIPASE STAT 08/03/2024 1:45 PM CDT COMPREHENSIVE METABOLIC PANEL STAT 08/03/2024 1:45 PM CDT CBC WITH AUTO DIFFERENTIAL STAT 08/03/2024 1:[address] ABDOMEN PELVIS W CONTRAST ED 08/02/2024 9:43 AM CDT URINALYSIS, MICROSCOPIC ONLY STAT 08/02/2024 8:48 AM CDT URINALYSIS AND REFLEX TO MICROSCOPIC AND CULTURE STAT 08/02/2024 8:48 AM CDT EGFR STAT 08/02/2024 8:43 AM CDT DIFFERENTIAL AUTO STAT 08/02/2024 8:4 3 AM CDT LIPASE STAT 08/02/2024 8:43 AM CDT COMPREHENSIVE METABOLIC PANEL STAT 08/02/2024 8:43 AM CDT CBC WITH AUTO DIFFERENTIAL STAT 08/02/2024 8:43 AM CDT TROPONIN T HIGH-SENSITIVITY 4-HR Timed 06/27/2024 11:44 AM DIGITAL ACCOUNT SUPERVISOR ECG 12-LEAD STAT 06/27/2024 9:54 AM DIGITAL ACCOUNT SUPERVISOR CT ABDOMEN PELVIS W CONTRAST ED 06/27/2024 9:42 AM DIGITAL ACCOUNT SUPERVISOR ETHANOL STAT 06/27/2024 7:53 AM DIGITAL ACCOUNT SUPERVISOR TROPONIN T HIGH-SENSITIVITY SERIES (BASELINE, 2HR, 4HR, 6HR) STAT 06/27/2024 7:53 AM DIGITAL ACCOUNT SUPERVISOR EGFR STAT 06/27/2024 7:53 AM DIGITAL ACCOUNT SUPERVISOR DIFFERENTIAL AUTO STAT 06/27/2024 7:5 3 AM DIGITAL ACCOUNT SUPERVISOR LIPASE STAT 06/27/2024 7:53 AM DIGITAL ACCOUNT SUPERVISOR COMPREHENSIVE METABOLIC PANEL STAT 06/27/2024 7:53 AM DIGITAL ACCOUNT SUPERVISOR CBC WITH AUTO DIFFERENTIAL STAT 06/27/2024 7:53 AM DIGITAL ACCOUNT SUPERVISOR URINALYSIS, MICROSCOPIC ONLY STAT 06/19/2024 7:06 PM DIGITAL ACCOUNT SUPERVISOR URINALYSIS AND REFLEX TO MICROSCOPIC AND CULTURE STAT 06/19/2024 7:06 PM DIGITAL ACCOUNT SUPERVISOR ECG 12-LEAD STAT 06/19/2024 7:04 PM DIGITAL ACCOUNT SUPERVISOR EGFR STAT 06/19/2024 6:56 PM DIGITAL ACCOUNT SUPERVISOR DIFFERENTIAL AUTO STAT 06/19/2024 6:5 6 PM DIGITAL ACCOUNT SUPERVISOR TROPONIN T HIGH-SENSITIVITY SERIES (BASELINE, 2HR, 4HR, 6HR) STAT 06/19/2024 6:56 PM DIGITAL ACCOUNT SUPERVISOR LIPASE STAT 06/19/2024 6:56 PM DIGITAL ACCOUNT SUPERVISOR COMPREHENSIVE METABOLIC PANEL STAT 06/19/2024 6:56 PM DIGITAL ACCOUNT SUPERVISOR CBC WITH AUTO DIFFERENTIAL STAT 06/19/2024 6:56 PM DIGITAL ACCOUNT SUPERVISOR DRUGS OF ABUSE SCREEN, URINE WITHOUT CONFIRMATION STAT 05/20/2024 7:37 PM DIGITAL ACCOUNT SUPERVISOR CT ABDOMEN PELVIS W CONTRAST ED 05/20/2024 5:56 PM DIGITAL ACCOUNT SUPERVISOR SEPSIS LACTATE WITH REFLEX STAT 05/20/2024 5:16 PM DIGITAL ACCOUNT SUPERVISOR EGFR STAT 05/20/2024 4:03 PM DIGITAL ACCOUNT SUPERVISOR DIFFERENTIAL AUTO STAT 05/20/2024 4:0 3 PM DIGITAL ACCOUNT SUPERVISOR LIPASE STAT 05/20/2024 4:03 PM DIGITAL ACCOUNT SUPERVISOR COMPREHENSIVE METABOLIC PANEL STAT 05/20/2024 4:03 PM DIGITAL ACCOUNT SUPERVISOR CBC WITH AUTO DIFFERENTIAL STAT 05/20/2024 4:03 PM DIGITAL ACCOUNT SUPERVISOR URINALYSIS AND REFLEX TO MICROSCOPIC AND CULTURE STAT 05/20/2024 4:03 PM DIGITAL ACCOUNT SUPERVISOR from Last 3 Months Results * Urinalysis reflex to microscopic and culture Urine (08/03/2024 1:50 PM CDT) Color, ur Yellow Yellow Comment:Testing performed by : [facility], [address] [place] [address]., [address] Clarity, ur Clear Clear NEEL Comment:Testing performed by : [address] [address] Specific gravity, ur 1.009 1.003 - 1.030 NEEL Comment:Testing performed by : [address] [address] pH, urine 7.0 NEEL Comment: Interpretive Data U rine pH is affected by diet, medications, systemic acid-base disturbances, and renal tubular function. pH may affect urinary stone formation. For example, urine pH below 6.0 may help reduce the tendency for calcium phosphate stones and pH greater than 6.0 may reduce the tendency for uric acid stone formation. Source: [facility] Current Interpretive Data was last revised on 2017 Testing performed by: [facility], [address] [place] [address], [place]., [address] Protein, ur ql Negative Negative NEEL Comment:Testing performed by : [address], [place]., [address] Glucose, ur ql Negative Negative NEEL Comment:Testing performed by : [address], [place]., [address] Ketones, ur Negative Negative NEEL Comment:Testing performed by : [address], [place]., [address] Bilirubin, ur Negative Negative NEEL Comment:Testing performed by : [address], [place]., [address] Blood, ur Negative Negative NEEL Comment:Testing performed by : [address], [place]., [address] Urobilinogen, ur <2.0 <2.0 mg/dL NEEL Comment:Testing performed by : [address], [place]., [address] Nitrite, ur Negative Negative NEEL Comment:Testing performed by : [address], [place]., [address] Leukocyte esterase, ur Negative Negative NEEL Comment:Testing performed by : [address], [place]., [address] UA reflex comment Reflex conditions for microscopic UA and culture not met. NEEL Comment:Testing performed by : [address], [place]., [address] Urine 08/03/2024 1:50 PM CDT 08/03/2024 1:53 PM CDT us Freddy Yao DO LAB MICROBIOLOGY - GENERAL ORDERABLES Final Result NEEL SMITH [address] [facility] Department [place] [address] * eGFR (08/03/2024 1:45 PM CDT) [facility] eGFR >90 >=60 mL/min/1. 73 m2 Comment: [...] was last reviewed 2021. Testing performed by: [address] [address] Blood 08/03/2024 1:45 PM CDT 08/03/2024 1:53 PM CDT Freddy Yao DO LAB BLOOD ORDERABLES Final Result NEEL [address] [facility] Department [place] [address] * (ABNORMAL) Differential, auto (08/03/2024 1:45 PM CDT) [facility] Neutrophil abs 7.8(H) 1.5 - 6.5 K/cumm Comment:Testing performed by : [address] [address] Imm gran abs 0.1 0.0 - 0.1 K/cumm NEEL Comment:Testing performed by : [address] [address] Lymphocyte abs 2.5 0.8 - 3.3 K/cumm [facility] Comment:Testing performed by : [address] [address] Monocyte abs 1.4(H) 0.2 - 0.8 K/cumm [facility] Comment:Testing performed by : [address], [place]., [address] Eosinophil abs 0.1 0.0 - 0.5 K/cumm [facility] Comment:Testing performed by : [address], [place]., [address] Basophil abs 0.1 0.0 - 0.1 K/cumm [facility] Comment:Testing performed by : [address] [address] Neutrophil pct 65.5 % [facility] Comment: Interpretive Data Percent cell count reference ranges are not reported, since discordance with absolute values may lead to misinterpretation of CBC data. Current Interpretive Data was last revised on 2017. Testing performed by: [address] [address] Imm gran pct 0.5 % [facility] Comment: Interpretive Data Percent cell count reference ranges are not reported, since discordance with absolute values may lead to misinterpretation of CBC data. Current Interpretive Data was last revised on 2017. Testing performed by: [address] [address] Lymphocyte pct 21.0 % [facility] Comment: Interpretive Data Percent cell count reference ranges are not reported, since discordance with absolute values may lead to misinterpretation of CBC data. Current Interpretive Data was last revised on 2017. Testing performed by: [address] [address] Monocyte pct 11.6 % [facility] Comment: Interpretive Data Percent cell count reference ranges are not reported, since discordance with absolute values may lead to misinterpretation of CBC data. Current Interpretive Data was last revised on 2017. Testing performed by: [address] [address] Eosinophil pct 0.8 % [facility] Comment: Interpretive Data Percent cell count reference ranges are not reported, since discordance with absolute values may lead to misinterpretation of CBC data. Current Interpretive Data was last revised on 2017. Testing performed by: [address] [address] Basophil pct 0.6 % NEEL SMITH Comment: Interpretive Data Percent cell count reference ranges are not reported, since discordance with absolute values may lead to misinterpretation of CBC data. Current Interpretive Data was last revised on 2017. Testing performed by: [address] [address] Blood 08/03/2024 1:45 PM CDT 08/03/2024 1:53 PM CDT Freddy Yao DO LAB BLOOD ORDERABLES Final Result NEEL [address] [facility] Department [place] [address] * (ABNORMAL) CBC with auto differential (08/03/2024 1:45 PM CDT) WBC 11.9(H) 3.8 - 9.9 K/cumm Comment:Testing performed by : [address] [address] Hgb 13.3 13.0 - 17.5 g/dL NEEL SMITH Comment:Testing performed by : [address] [address] Hct 40.4 38.9 - 50.3 % NEEL SMITH Comment:Testing performed by : [address] [address] Plt 333 150 - 400 K/cumm NEEL SMITH Comment:Testing performed by : [address] [address] MPV 10.3 9.1 - 12.3 fL NEEL SMITH Comment:Testing performed by : [address] [address] RBC 4.81 4.30 - 5.80 M/cumm NEEL SMITH Comment:Testing performed by : [address] [address] MCV 84.0 81.3 - 96.4 fL NEEL SMITH Comment:Testing performed by : [address], [address] MCH 27.7 27.1 - 33.3 pg NEEL SMITH Comment:Testing performed by : [address] [address] MCHC 32.9 32.3 - 35.7 g/dL NEEL SMITH Comment:Testing performed by : [address], [address] RDW CV 16.4(H) 11.1 - 14.9 % NEEL Comment:Testing performed by : [address], [address] RDW SD 50.0(H) 35.7 - 48.1 fL NEEL SMITH Comment:Testing performed by : [address], [address] NRBC abs 0.00 0.00 - 0.01 K/cumm NEEL Comment:Testing performed by : [address], [address] Blood Venous blood specimen / Unknown 08/03/2024 1:45 PM CDT 08/03/2024 1:53 PM CDT Freddy Yao DO LAB BLOOD ORDERABLES Final Result Performing Organization Address City/[facility] Phone Number NEEL [address] [facility] Department of Laboratories [place], [place] [id number] * Lipase (08/03/2024 1:45 PM CDT) Lipase 58 10 - 99 Units/L Comment:Testing performed by : [address] [address] Blood Venous blood specimen / Unknown 08/03/2024 1:45 PM CDT 08/03/2024 1:53 PM CDT Freddy Yao DO LAB BLOOD ORDERABLES Final Result NEEL [address] [facility] Department [place] [address] * Comprehensive metabolic panel (08/03/2024 1:45 PM CDT) Sodium 142 135 - 145 mmol/L Comment:Testing performed by : [facility], [address] [place] [address]., [address] Potassium, pl 3.9 3.3 - 4.9 mmol/L NEEL Comment:Testing performed by : [address], [place]., [address] Chloride 108 97 - 110 mmol/L NEEL Comment:Testing performed by : [address], [place]., [address] CO2 23 22 - 32 mmol/L NEEL Comment:Testing performed by : [address], [place]., [address] Anion gap 11 2 - 15 mmol/L NEEL Comment:Testing performed by : [address] [address] BUN 9 6 - 25 mg/dL NEEL Comment:Testing performed by : [address] [address] Creatinine 0.90 0.80 - 1.30 mg/dL NEEL Comment:Testing performed by : [address] [address] Glucose 107 70 - 199 mg/dL NEEL Comment: Interpretive [...] was last revised 2022. Testing performed by: [address] [address] Calcium 9.4 8.5 - 10.3 mg/dL NEEL Comment:Testing performed by : [facility], [address] [place] [address]., [address] Bilirubin, total 0.3 0.1 - 1.2 mg/dL NEEL Comment:Testing performed by : [address] [address] Protein, pl 7.1 6.5 - 8.5 g/dL NEEL Comment:Testing performed by : [address] [address] Albumin 4.3 3.5 - 5.0 g/dL NEEL Comment:Testing performed by : [address] [address] Alk phos 80 40 - 130 Units/L NEEL Comment:Testing performed by : [address] [address] ALT 23 7 - 55 Units/L NEEL Comment:Testing performed by : [address] [address] AST 32 10 - 50 Units/L NEEL Comment:Testing performed by : [address] [address] Blood 08/03/2024 1:45 PM CDT 08/03/2024 1:53 PM CDT us Freddy Yao DO LAB BLOOD ORDERABLES Final Result Performing Organization Address City/State/[facility] Co de Phone Number [facility] Department [place] [address] * CT Abdomen Pelvis W Contrast (08/02/2024 9:43 AM CDT) Anatomical Region Laterality Modality Body N/A Computed Tomogra phy 08/02/2024 9:54 AM CDT Narrative 08/02/2024 10:22 AM CDT EXAM DESCRIPTION: CT ABDOMEN PELVIS W CONTRAST REASON FOR STUDY: Pancreatitis, acute, severe LLQ to RUQ abdominal pain, sharp, stabbing, started this am, nausea and vomiting. Hx Pancreatis LLQ to RUQ abdominal pain, sharp, stabbing, started this am, nausea and vomiting. Hx Pancreatis TECHNIQUE: CT scan of the abdomen and pelvis performed with intravenous and without oral contrast using helical scanning technique with dynamic intravenous contrast injection. Reconstructed coronal and sagittal MPR images reviewed. All images stored on PACS. Automated exposure control was used as a dose optimization technique for this examination. CONTRAST TYPE/DOSE: 100mL of IOVERSOL 350 MG IODINE/ML INTRAVENOUS SYRINGE injected via intravenous COMPARISON: 06/27/2024, 05/20/2024, 04/20/2024 FINDINGS: LOWER CHEST: There is no consolidation within either lung base. Mild dependent atelectasis. No pleural or pericardial effusion. LIVER: The liver is within normal limits in size. There is steatosis. 4 mm hypodense lesion at the dome of the liver on image number 37 is too small to characterize, grossly stable from prior examination. GALLBLADDER: Surgically absent. BILE DUCTS: There is no intra or extrahepatic biliary dilatation. Pneumobilia has increased compared to previous studies. SPLEEN: Normal size. No discrete mass. PANCREAS: No discrete pancreatic mass. No pancreatic ductal dilatation. No significant peripancreatic stranding. Correlate with laboratory values which are more sensitive in detection of pancreatitis. ADRENALS: Unremarkable. KIDNEYS/URINARY TRACT: Kidneys enhance symmetrically. No suspicious cystic or solid mass. There is very subtle stranding along Gerota's fascia on the right, without perinephric stranding. This could reflect subtle sequela of inflammation if patient does indeed have pancreatitis. Mild cortical thinning along the anterior cortex of the lower pole of the right kidney is stable. The urinary bladder is incompletely distended, accentuating wall thickness, similar to prior studies. GI: The stomach is somewhat distended with fluid. There is wall thickening versus decompression involving the distal stomach. Correlate clinically with regards to gastritis or peptic ulcer disease. Appearance is similar to previous examinations. The duodenum is normal in caliber. There are a few fluid filled loops of small bowel, including a loop in the anterior abdomen just to the left of midline on image 92. There is equivocal wall thickening of the bowel just distal to this on image 101, versus decompression associated with peristalsis. Correlate clinically with regards to enteritis. The appendix is normal. The colon is decompressed, accentuating wall thickness diffusely. PERITONEUM: There is no free intraperitoneal air. There is no free fluid. No mesenteric lymphadenopathy. RETROPERITONEUM: There is no retroperitoneal mass or adenopathy. REPRODUCTIVE: Prostate gland is normal in size. Dystrophic calcifications. VASCULATURE: Atherosclerotic calcification of the aorta without aneurysm or dissection. MUSCULOSKELETAL: No acute osseous abnormality. OTHER: No other abnormality. IMPRESSION: No definitive CT evidence of acute pancreatitis. Correlate with laboratory values which are more sensitive. There is very subtle stranding along Gerota's fascia on the right. There is perhaps very subtle stranding about the proximal right ureter. Equivocal thickening versus decompression of the urinary bladder. Correlate with laboratory values and urinalysis with regards to urinary tract infection. No definitive CT evidence of pyelonephritis. There is a fluid-filled loop of small bowel within the left hemiabdomen directly proximal to a loop with a smaller caliber and potential wall thickening versus decompression/peristalsis. Consider enteritis in the appropriate clinical setting. This would most likely be infectious or inflammatory. Wall thickening versus decompression involving the distal stomach. Correlate clinically with regards to gastritis or peptic ulcer disease. Endoscopy can be utilized for further evaluation. Hepatic steatosis. Pneumobilia, presumably associated with prior cholecystectomy. This is slightly greater in amount than demonstrated on prior examinations. THIS IS AN ELECTRONICALLY VERIFIED FINAL REPORT 08/02/2024 10:22 AM - Electronically signed by Priti Salmeron M.D. TW: JENNA Report ID: [id number] Reading Location: [id number] Procedure Note Priti Salmeron MD - 08/02/2024 EXAM DESCRIPTION: CT ABDOMEN PELVIS W CONTRAST REASON FOR STUDY: Pancreatitis, acute, severe LLQ to RUQ abdominal pain, sharp, stabbing, started this am, nausea and vomiting. Hx Pancreatis LLQ to RUQ abdominal pain, sharp, stabbing,started this am, nausea and vomiting. Hx Pancreatis TECHNIQUE: CT scan of the abdomen and pelvis performed with intravenousand without oral contrast using helical scanning technique with dynamic intravenous contrast injection. Reconstructed coronal and sagittal MPRimages reviewed. All images stored on PACS. Automated exposure control was usedas a dose optimization technique for this examination. CONTRAST TYPE/DOSE: 100mL of IOVERSOL 350 MG IODINE/ML INTRAVENOUSSYRINGE injected via intravenous COMPARISON: 06/27/2024, 05/20/2024, 04/20/2024 FINDINGS: LOWER CHEST: There is no consolidation within either lungbase. Mild dependent atelectasis. No pleural or pericardial effusion. LIVER: The liver is within normal limits in size. There is steatosis.4 mm hypodense lesion at the dome of the liver on image number 37 is too smallto characterize, grossly stable from prior examination. GALLBLADDER: Surgically absent. BILE DUCTS: There is no intra or extrahepatic biliary dilatation. Pneumobilia has increased compared to previous studies. SPLEEN: Normal size. No discrete mass. PANCREAS: No discrete pancreatic mass. No pancreatic ductal dilatation.No significant peripancreatic stranding. Correlate with laboratory valueswhich are more sensitive in detection of pancreatitis. ADRENALS: Unremarkable. KIDNEYS/URINARY TRACT: Kidneys enhance symmetrically. No suspiciouscystic or solid mass. There is very subtle stranding along Gerota's fascia onthe right, without perinephric stranding. This could reflect subtle sequelaof inflammation if patient does indeed have pancreatitis. Mild cortical thinning along the anterior cortex of the lower pole of the right kidneyis stable. The urinary bladder is incompletely distended, accentuating wall thickness, similar to prior studies. GI: The stomach is somewhat distended with fluid. There is wallthickening versus decompression involving the distal stomach. Correlate clinicallywith regards to gastritis or peptic ulcer disease. Appearance is similar to previous examinations. The duodenum is normal in caliber. There are afew fluid filled loops of small bowel, including a loop in the anteriorabdomen just to the left of midline on image 92. There is equivocal wallthickening of the bowel just distal to this on image 101, versus decompressionassociated with peristalsis. Correlate clinically with regards to enteritis. The appendix is normal. The colon is decompressed, accentuating wallthickness diffusely. PERITONEUM: There is no free intraperitoneal air. There is no freefluid. No mesenteric lymphadenopathy. RETROPERITONEUM: There is no retroperitoneal mass or adenopathy. REPRODUCTIVE: Prostate gland is normal in size. Dystrophiccalcifications. VASCULATURE: Atherosclerotic calcification of the aorta without aneurysmor dissection. MUSCULOSKELETAL: No acute osseous abnormality. OTHER: No other abnormality. IMPRESSION: No definitive CT evidence of acute pancreatitis. Correlate withlaboratory values which are more sensitive. There is very subtle stranding along Gerota's fascia on the right. Thereis perhaps very subtle stranding about the proximal right ureter. Equivocal thickening versus decompression of the urinary bladder. Correlate with laboratory values and urinalysis with regards to urinary tract infection.No definitive CT evidence of pyelonephritis. There is a fluid-filled loop of small bowel within the left hemiabdomen directly proximal to a loop with a smaller caliber and potential wall thickening versus decompression/peristalsis. Consider enteritis in the appropriate clinical setting. This would most likely be infectious or inflammatory. Wall thickening versus decompression involving the distal stomach.Correlate clinically with regards to gastritis or peptic ulcer disease. Endoscopycan be utilized for further evaluation. Hepatic steatosis. Pneumobilia, presumably associated with prior cholecystectomy. This is slightly greater in amount than demonstrated on prior examinations. THIS IS AN ELECTRONICALLY VERIFIED FINAL REPORT 08/02/2024 10:22 AM - Electronically signed by Priti Salmeron M.D. TW: JENNA Report ID: [id number] Reading Location: [place] [address] Vijaya [facility] PROCEDURES Final Result * (ABNORMAL) Urinalysis reflex to microscopic and culture Urine (08/02/2024 8:48 AM CDT) Color, ur Yellow Yellow Comment:Testing performed by : [address] [address] Clarity, ur Clear Clear NEEL Comment:Testing performed by : [address] [address] Specific gravity, ur 1.025 1.003 - 1.030 NEEL Comment:Testing performed by : [address] [address] pH, urine 8.0 NEEL Comment: Interpretive Data U rine pH is affected by diet, medications, systemic acid-base disturbances, and renal tubular function. pH may affect urinary stone formation. For example, urine pH below 6.0 may help reduce the tendency for calcium phosphate stones and pH greater than 6.0 may reduce the tendency for uric acid stone formation. Source: [facility] Current Interpretive Data was last revised on 2017 Testing performed by: [address] [address] Protein, ur ql 1+(A) Negative NEEL Comment:Testing performed by : [address], [place]., [address] Glucose, ur ql Trace(A) Negative NEEL Comment:Testing performed by : [address], [place]., [address] Ketones, ur 2+(A) Negative NEEL Comment:Testing performed by : [address], [place]., [address] Bilirubin, ur Negative Negative NEEL Comment:Testing performed by : [address], [place]., [address] Blood, ur Negative Negative NEEL Comment:Testing performed by : [address], [place]., [address] Urobilinogen, ur <2.0 <2.0 mg/dL NEEL Comment:Testing performed by : [address] [address] Nitrite, ur Negative Negative NEEL Comment:Testing performed by : [address], [place]., [address] Leukocyte esterase, ur Negative Negative NEEL Comment:Testing performed by : [address] [address] UA reflex comment Reflex to microscopic UA will be performed. NEEL Comment:Testing performed by : [address] [address] Urine 08/02/2024 8:48 AM CDT 08/02/2024 8:54 AM CDT us Freddy Yao DO LAB MICROBIOLOGY - GENERAL ORDERABLES Final Result NEEL SMITH [address] [facility] Department [place] [address] * (ABNORMAL) Urinalysis, microscopic only (08/02/2024 8:48 AM CDT) WBC, ur 0-5 0 - 5 /HPF Comment:Testing performed by : [facility], [address] [place] [address]., [address] RBC, ur 0-2 0 - 2 /HPF NEEL SMITH Comment:Testing performed by : [address] [address] Epithelial cells, squamous, ur 1-5 0 - 5 /HPF NEEL SMITH Comment:Testing performed by : [address] [address] Mucous, ur Present(A) NEEL SMITH Comment:Testing performed by : [address] [address] Culture Reflex Comment Reflex conditions for urine culture (WBC >10) not met. NEEL Comment:Testing performed by : [address] [address] Urine 08/02/2024 8:48 AM CDT 08/02/2024 8:54 AM CDT Freddy Yao DO LAB URINE ORDERABLES Final Result NEEL [address] [facility] Department [place] [address] * eGFR (08/02/2024 8:43 AM CDT) eGFR >90 >=60 mL/min/1. 73 m2 Comment: [...] was last reviewed 2021. Testing performed by: [address] [address] Blood 08/02/2024 8:43 AM CDT 08/02/2024 8:53 AM CDT Freddy Yao DO LAB BLOOD ORDERABLES Final Result [facility] [address] [facility] Department [place] [address] * (ABNORMAL) Differential, auto (08/02/2024 8:43 AM CDT) Neutrophil abs 12.1(H) 1.5 - 6.5 K/cumm Comment:Testing performed by : [address] [address] Imm gran abs 0.1 0.0 - 0.1 K/cumm NEEL Comment:Testing performed by : [address] [address] Lymphocyte abs 0.9 0.8 - 3.3 K/cumm NEEL Comment:Testing performed by : [address] [address] Monocyte abs 0.7 0.2 - 0.8 K/cumm NEEL Comment:Testing performed by : [address] [address] Eosinophil abs 0.0 0.0 - 0.5 K/cumm NEEL Comment:Testing performed by : [address] [address] Basophil abs 0.0 0.0 - 0.1 K/cumm NEEL Comment:Testing performed by : [address] [address] Neutrophil pct 88.2 % NEEL Comment: Interpretive Data Percent cell count reference ranges are not reported, since discordance with absolute values may lead to misinterpretation of CBC data. Current Interpretive Data was last revised on 2017. Testing performed by: [address] [address] Imm gran pct 0.4 % [facility] Comment: Interpretive Data Percent cell count reference ranges are not reported, since discordance with absolute values may lead to misinterpretation of CBC data. Current Interpretive Data was last revised on 2017. Testing performed by: [address] [address] Lymphocyte pct 6.6 % [facility] Comment: Interpretive Data Percent cell count reference ranges are not reported, since discordance with absolute values may lead to misinterpretation of CBC data. Current Interpretive Data was last revised on 2017. Testing performed by: [address] [address] Monocyte pct 4.7 % [facility] Comment: Interpretive Data Percent cell count reference ranges are not reported, since discordance with absolute values may lead to misinterpretation of CBC data. Current Interpretive Data was last revised on 2017. Testing performed by: [address] [address] Eosinophil pct 0.0 % [facility] Comment: Interpretive Data Percent cell count reference ranges are not reported, since discordance with absolute values may lead to misinterpretation of CBC data. Current Interpretive Data was last revised on 2017. Testing performed by: [address] [address] Basophil pct 0.1 % [facility] Comment: Interpretive Data Percent cell count reference ranges are not reported, since discordance with absolute values may lead to misinterpretation of CBC data. Current Interpretive Data was last revised on 2017. Testing performed by: [address] [address] Blood 08/02/2024 8:43 AM CDT 08/02/2024 8:53 AM CDT us Freddy Yao DO LAB BLOOD ORDERABLES Final Result NEEL [address] [facility] Department of Laboratories [place], [place] [id number] * (ABNORMAL) CBC with auto differential (08/02/2024 8:43 AM CDT) [facility] WBC 13.7(H) 3.8 - 9.9 K/cumm Comment:Testing performed by : [address] [address] Hgb 12.9(L) 13.0 - 17.5 g/dL NEEL Comment:Testing performed by : [address] [address] Hct 38.3(L) 38.9 - 50.3 % NEEL Comment:Testing performed by : [address] [address] Plt 310 150 - 400 K/cumm NEEL Comment:Testing performed by : [address] [address] MPV 9.9 9.1 - 12.3 fL NEEL Comment:Testing performed by : [address], [address] RBC 4.63 4.30 - 5.80 M/cumm NEEL Comment:Testing performed by : [address] [address] MCV 82.7 81.3 - 96.4 fL NEEL Comment:Testing performed by : [address], [address] MCH 27.9 27.1 - 33.3 pg NEEL Comment:Testing performed by : [address], [address] MCHC 33.7 32.3 - 35.7 g/dL NEEL Comment:Testing performed by : [address], [address] RDW CV 15.9(H) 11.1 - 14.9 % NEEL Comment:Testing performed by : [address], [address] RDW SD 48.1 35.7 - 48.1 fL NEEL Comment:Testing performed by : [address] [address] NRBC abs 0.00 0.00 - 0.01 K/cumm NEEL Comment:Testing performed by : [address] [address] Blood Venous blood specimen / Unknown 08/02/2024 8:43 AM CDT 08/02/2024 8:53 AM CDT Freddy Yao LAB BLOOD ORDERABLES Final Result Performing Organization Address City/[facility] Co de Phone Number [facility]INT[address] [place] [place] [address] * Lipase (08/02/2024 8:43 AM CDT) Pathologist [facility] Lipase 28 10 - 99 Units/L Comment:Testing performed by : [address] [address] Blood Venous blood specimen / Unknown 08/02/2024 8:43 AM CDT 08/02/2024 8:53 AM CDT Freddy Yao LAB BLOOD ORDERABLES Final Result Performing Organization Address [facility]/[place]UST de Phone Number [address] [address] * Comprehensive metabolic panel (08/02/2024 8:43 AM CDT) Sodium 143 135 - 145 mmol/L Comment:Testing performed by : [address] [address] Potassium, pl 3.9 3.3 - 4.9 mmol/L NEEL Comment:Testing performed by : [address] [address] Chloride 107 97 - 110 mmol/L NEEL Comment:Testing performed by : [address] [address] CO2 22 22 - 32 mmol/L NEEL Comment:Testing performed by : [address] [address] Anion gap 14 2 - 15 mmol/L NEEL Comment:Testing performed by : [address] [address] BUN 9 6 - 25 mg/dL [facility] Comment:Testing performed by : [address] [address] Creatinine 0.90 0.80 - 1.30 mg/dL NEEL Comment:Testing performed by : [address] [address] Glucose 161 70 - 199 mg/dL [facility] Comment: Interpretive Data Fasting glucose >/= [...] was last revised 2022. Testing performed by: [address] [address] Calcium 9.0 8.5 - 10.3 mg/dL [facility] Comment:Testing performed by : [address] [address] Bilirubin, total 0.5 0.1 - 1.2 mg/dL [facility] Comment:Testing performed by : [address] [address] Protein, pl 7.1 6.5 - 8.5 g/dL [facility] Comment:Testing performed by : [address] [address] Albumin 4.3 3.5 - 5.0 g/dL [facility] Comment:Testing performed by : [address] [address] Alk phos 81 40 - 130 Units/L NEEL Comment:Testing performed by : [address] [address] ALT 20 7 - 55 Units/L [facility] Comment:Testing performed by : [address] [address] AST 26 10 - 50 Units/L NEEL Comment:Testing performed by : [address] [address] Blood 08/02/2024 8:43 AM CDT 08/02/2024 8:53 AM CDT Freddy Yao DO LAB BLOOD ORDERABLES Final Result Performing Organization Address City/[facility] Co de Phone Number NEEL [address] [place] [address] * Troponin T high-sensitivity 4-hour (06/27/2024 11:44 AM DIGITAL ACCOUNT SUPERVISOR) Pathologist [facility] Trop T hs <6 <=22 ng/L Comment: Interpretive Data For further hscTnT resources including the diagnostic algorithm and an aid in interpretation, copy and paste this link: https://nrl.testcatalog.org/show/hsTrop Current Interpretive Data last revised 2020. Testing performed by: [address] [address] Trop T hs delta 0 ng/L NEEL Comment:Testing performed by : [address] [address] Trop T hs interp Insignificant NEEL Comment:Testing performed by : [address] [address] Blood 06/27/2024 11:4 4 AM DIGITAL ACCOUNT SUPERVISOR 06/27/2024 11:47 AM DIGITAL ACCOUNT SUPERVISOR us Bernard Bruce MD LAB BLOOD ORDERABLES Final Resul t Performing Organization Address City/[facility]/ZIP Co de Phone Number [facility] [address] [facility] [place] [address] * ECG 12 lead (06/27/2024 9:54 AM DIGITAL ACCOUNT SUPERVISOR) Ventricular Rate EKG/Min 74 BPM [facility] Atrial Rate 74 BPM [facility] NV-Interval (MSEC) 120 ms [facility] QRS-Interval (MSEC) 100 ms [facility] QT-Interval (MSEC) 394 ms [facility] QTc 437 ms [facility] P [place] 37 degrees [facility] R [place] 12 degrees [facility] T [place] 29 degrees [facility] Diagnosis Normal sinus rhythm Normal ECG When compared with ECG of 19-JUN-2024 19:04, No significant change was found Confirmed by PRINCESS BAE M.D. ([id number]) on 06/28/2024 11:26:58 PM [facility] 06/27/2024 9:54 AM DIGITAL ACCOUNT SUPERVISOR 06/28/2024 11:26 PM DIGITAL ACCOUNT SUPERVISOR us Bernard Bruce MD ECG ORDERABLES Final Result [facility] * CT Abdomen Pelvis W Contrast (06/27/2024 9:42 AM DIGITAL ACCOUNT SUPERVISOR) Anatomical Region Laterality Modality Body N/A Computed Tomogra phy 06/27/2024 10:1 8 AM DIGITAL ACCOUNT SUPERVISOR Narrative 06/27/2024 10:30 AM DIGITAL ACCOUNT SUPERVISOR EXAM DESCRIPTION: CT ABDOMEN PELVIS W CONTRAST REASON FOR STUDY: Mid abdominal pain. Vomiting today. History of pancreatitis. TECHNIQUE: CT scan of the abdomen and pelvis performed with intravenous and without oral contrast using helical scanning technique with dynamic intravenous contrast injection. Reconstructed coronal and sagittal MPR images reviewed. All images stored on PACS. Automated exposure control was used as a dose optimization technique for this examination. CONTRAST TYPE/DOSE: 100mL of IOVERSOL 350 MG IODINE/ML INTRAVENOUS SYRINGE injected via intravenous COMPARISON: CT abdomen pelvis 05/20/2024 FINDINGS: LOWER CHEST: No significant pulmonary abnormalities. No pleural effusion. LIVER: Low-attenuation 4 mm lesion in the hepatic dome is unchanged and likely a cyst or hemangioma. GALLBLADDER: Prior cholecystectomy. BILE DUCTS: No intrahepatic or extrahepatic ductal dilatation. SPLEEN: Normal size. No focal lesions. PANCREAS: No masses. No adjacent inflammation or peripancreatic fluid collections. No pancreatic ductal dilatation. ADRENALS: Normal. KIDNEYS/URINARY TRACT: No identified significant cystic or solid masses. No hydronephrosis or hydroureter. Symmetric nephrograms. Urinary bladder is unremarkable. GI: No dilated bowel loops. No obvious wall thickening. Normal appendix. No significant diverticular disease. PERITONEUM: No ascites or free air. RETROPERITONEUM: No mass or lymphadenopathy. REPRODUCTIVE: No significant abnormality. VASCULATURE: No abdominal aortic aneurysm. MUSCULOSKELETAL: Minimal lumbar spondylosis. OTHER: No other abnormality. IMPRESSION: No abnormality to explain the patient's symptoms. THIS IS AN ELECTRONICALLY VERIFIED FINAL REPORT 06/27/2024 10:30 AM - Electronically signed by Jake Don M.D. LB: LB Report ID: [id number] Reading Location: [id number] Procedure Note Jake Don MD - 06/27/2024 EXAM DESCRIPTION: CT ABDOMEN PELVIS W CONTRAST REASON FOR STUDY: Mid abdominal pain. Vomiting today. History of pancreatitis. TECHNIQUE: CT scan of the abdomen and pelvis performed with intravenousand without oral contrast using helical scanning technique with dynamic intravenous contrast injection. Reconstructed coronal and sagittal MPRimages reviewed. All images stored on PACS. Automated exposure control was usedas a dose optimization technique for this examination. CONTRAST TYPE/DOSE: 100mL of IOVERSOL 350 MG IODINE/ML INTRAVENOUSSYRINGE injected via intravenous COMPARISON: CT abdomen pelvis 05/20/2024 FINDINGS: LOWER CHEST: No significant pulmonary abnormalities. No pleuraleffusion. LIVER: Low-attenuation 4 mm lesion in the hepatic dome is unchanged and likely a cyst or hemangioma. GALLBLADDER: Prior cholecystectomy. BILE DUCTS: No intrahepatic or extrahepatic ductal dilatation. SPLEEN: Normal size. No focal lesions. PANCREAS: No masses. No adjacent inflammation or peripancreatic fluid collections. No pancreatic ductal dilatation. ADRENALS: Normal. KIDNEYS/URINARY TRACT: No identified significant cystic or solid masses.No hydronephrosis or hydroureter. Symmetric nephrograms. Urinary bladder is unremarkable. GI: No dilated bowel loops. No obvious wall thickening. Normalappendix. No significant diverticular disease. PERITONEUM: No ascites or free air. RETROPERITONEUM: No mass or lymphadenopathy. REPRODUCTIVE: No significant abnormality. VASCULATURE: No abdominal aortic aneurysm. MUSCULOSKELETAL: Minimal lumbar spondylosis. OTHER: No other abnormality. IMPRESSION: No abnormality to explain the patient's symptoms. THIS IS AN ELECTRONICALLY VERIFIED FINAL REPORT 06/27/2024 10:30 AM - Electronically signed by Jake Don M.D. LB: [place] Report ID: [id number] Reading Location: [id number] us Bernard Bruce MD IMG CT PROCEDURES Final Result * Troponin T high-sensitivity series (baseline, 2hr, 4hr, 6hr) (06/27/2024 7:53 AM DIGITAL ACCOUNT SUPERVISOR) Trop T hs <6 <=22 ng/L Comment: Interpretive Data For further hscTnT resources including the diagnostic algorithm and an aid in interpretation, copy and paste this link: https://nrl.testcatalog.org/show/hsTrop Current Interpretive Data last revised 2020. Testing performed by: [facility], [address] [place] [address]., [address] Blood 06/27/2024 7:53 AM DIGITAL ACCOUNT SUPERVISOR 06/27/2024 7:55 AM DIGITAL ACCOUNT SUPERVISOR us Bernard Bruce MD LAB BLOOD ORDERABLES Edited Resu lt - Final [facility] [address] Department [place] [address] * eGFR (06/27/2024 7:53 AM DIGITAL ACCOUNT SUPERVISOR) eGFR 85 >=60 mL/min/1. 73 m2 Comment: Interpretive Data [...] was last reviewed 2021. Testing performed by: [address] [address] Blood 06/27/2024 7:53 AM DIGITAL ACCOUNT SUPERVISOR 06/27/2024 7:55 AM DIGITAL ACCOUNT SUPERVISOR us Bernard Bruce MD LAB BLOOD ORDERABLES Final Resul t [facility] [address] Department of Laboratories [place], [place] [id number] * (ABNORMAL) Differential, auto (06/27/2024 7:53 AM DIGITAL ACCOUNT SUPERVISOR) Neutrophil abs 5.4 1.5 - 6.5 K/cumm Comment:Testing performed by : [address] [address] Imm gran abs 0.0 0.0 - 0.1 K/cumm NEEL Comment:Testing performed by : [address] [address] Lymphocyte abs 3.7(H) 0.8 - 3.3 K/cumm NEEL Comment:Testing performed by : [address] [address] Monocyte abs 1.7(H) 0.2 - 0.8 K/cumm NEEL Comment:Testing performed by : [address] [address] Eosinophil abs 0.5 0.0 - 0.5 K/cumm NEEL Comment:Testing performed by : [address] [address] Basophil abs 0.1 0.0 - 0.1 K/cumm NEEL Comment:Testing performed by : [address] [address] Neutrophil pct 47.6 % NEEL Comment: Interpretive Data Percent cell count reference ranges are not reported, since discordance with absolute values may lead to misinterpretation of CBC data. Current Interpretive Data was last revised on 2017. Testing performed by: [address] [address] Imm gran pct 0.3 % [facility] Comment: Interpretive Data Percent cell count reference ranges are not reported, since discordance with absolute values may lead to misinterpretation of CBC data. Current Interpretive Data was last revised on 2017. Testing performed by: [address] [address] Lymphocyte pct 32.4 % [facility] Comment: Interpretive Data Percent cell count reference ranges are not reported, since discordance with absolute values may lead to misinterpretation of CBC data. Current Interpretive Data was last revised on 2017. Testing performed by: [address] [address] Monocyte pct 14.6 % [facility] Comment: Interpretive Data Percent cell count reference ranges are not reported, since discordance with absolute values may lead to misinterpretation of CBC data. Current Interpretive Data was last revised on 2017. Testing performed by: [address] [address] Eosinophil pct 4.4 % [facility] Comment: Interpretive Data Percent cell count reference ranges are not reported, since discordance with absolute values may lead to misinterpretation of CBC data. Current Interpretive Data was last revised on 2017. Testing performed by: [address] [address] Basophil pct 0.7 % [facility] Comment: Interpretive Data Percent cell count reference ranges are not reported, since discordance with absolute values may lead to misinterpretation of CBC data. Current Interpretive Data was last revised on 2017. Testing performed by: [address] [address] Blood 06/27/2024 7:53 AM DIGITAL ACCOUNT SUPERVISOR 06/27/2024 7:55 AM DIGITAL ACCOUNT SUPERVISOR us Bernard Bruce MD LAB BLOOD ORDERABLES Final Resul t NEEL [address] Department [place] [address] * (ABNORMAL) CBC with auto differential (06/27/2024 7:53 AM DIGITAL ACCOUNT SUPERVISOR) [facility] WBC 11.3(H) 3.8 - 9.9 K/cumm Comment:Testing performed by : [address] [address] Hgb 14.2 13.0 - 17.5 g/dL NEEL Comment:Testing performed by : [address] [address] Hct 43.1 38.9 - 50.3 % NEEL Comment:Testing performed by : [address] [address] Plt 301 150 - 400 K/cumm NEEL Comment:Testing performed by : [address] [address] MPV 10.2 9.1 - 12.3 fL NEEL Comment:Testing performed by : [address], [address] RBC 5.16 4.30 - 5.80 M/cumm NEEL Comment:Testing performed by : [address] [address] MCV 83.5 81.3 - 96.4 fL NEEL Comment:Testing performed by : [address] [address] MCH 27.5 27.1 - 33.3 pg NEEL Comment:Testing performed by : [address] [address] MCHC 32.9 32.3 - 35.7 g/dL NEEL Comment:Testing performed by : [address] [address] RDW CV 16.2(H) 11.1 - 14.9 % NEEL Comment:Testing performed by : [address] [address] RDW SD 49.5(H) 35.7 - 48.1 fL NEEL Comment:Testing performed by : [address], [address] NRBC abs 0.00 0.00 - 0.01 K/cumm [facility] Comment:Testing performed by : [address] [address] Blood Venous blood specimen / Unknown 06/27/2024 7:53 AM DIGITAL ACCOUNT SUPERVISOR 06/27/2024 7:55 AM DIGITAL ACCOUNT SUPERVISOR us Bernard Bruce MD LAB BLOOD ORDERABLES Final Resul t Performing Organization Address [facility] de Phone Number [address] [place] [address] * (ABNORMAL) Lipase (06/27/2024 7:53 AM DIGITAL ACCOUNT SUPERVISOR) Pathologist [facility] Lipase 355(H) 10 - 99 Units/L Comment:Testing performed by : [address] [address] Blood Venous blood specimen / Unknown 06/27/2024 7:53 AM DIGITAL ACCOUNT SUPERVISOR 06/27/2024 7:55 AM DIGITAL ACCOUNT SUPERVISOR us Bernard Bruce MD LAB BLOOD ORDERABLES Final Resul t Performing Organization Address [facility] de Phone Number [address] [place] [address] * Ethanol (06/27/2024 7:53 AM DIGITAL ACCOUNT SUPERVISOR) Pathologist [facility] Ethanol <10 <=10 mg/dL Comment: Interpretive Data Legal limit of intoxication > or = 80 mg/dL Levels > or = 400 mg/dL are potentially TOXIC. Current interpretive data was last revised on 2018. Testing performed by: [address] [address] Blood 06/27/2024 7:53 AM DIGITAL ACCOUNT SUPERVISOR 06/27/2024 7:55 AM DIGITAL ACCOUNT SUPERVISOR us Bernard Bruce MD LAB BLOOD ORDERABLES Final Resul t Performing Organization Address [facility] de Phone Number [address] [place] [address] * (ABNORMAL) Comprehensive metabolic panel (06/27/2024 7:53 AM DIGITAL ACCOUNT SUPERVISOR) Sodium 141 135 - 145 mmol/L Comment:Testing performed by : [address], [place]., [address] Potassium, pl 4.5 3.3 - 4.9 mmol/L NEEL Comment:Testing performed by : [address] [address] Chloride 102 97 - 110 mmol/L NEEL Comment:Testing performed by : [address], [place]., [address] CO2 25 22 - 32 mmol/L NEEL Comment:Testing performed by : [address] [address] Anion gap 14 2 - 15 mmol/L NEEL Comment:Testing performed by : [address] [address] BUN 15 6 - 25 mg/dL NEEL Comment:Testing performed by : [address], [place]., [address] Creatinine 1.10 0.80 - 1.30 mg/dL NEEL Comment:Testing performed by : [address] [address] Glucose 110 70 - 199 mg/dL NEEL Comment: Interpretive [...] was last revised 2022. Testing performed by: [address], [place]., [address] Calcium 10.1 8.5 - 10.3 mg/dL NEEL Comment:Testing performed by : [address] [address] Bilirubin, total 0.3 0.1 - 1.2 mg/dL NEEL Comment:Testing performed by : [address] [address] Protein, pl 7.4 6.5 - 8.5 g/dL NEEL Comment:Testing performed by : [address] [address] Albumin 4.5 3.5 - 5.0 g/dL NEEL Comment:Testing performed by : [address] [address] Alk phos 91 40 - 130 Units/L NEEL Comment:Testing performed by : [address] [address] ALT 40 7 - 55 Units/L NEEL Comment:Testing performed by : [address] [address] AST 58(H) 10 - 50 Units/L NEEL Comment:Testing performed by : [address] [address] Blood 06/27/2024 7:53 AM DIGITAL ACCOUNT SUPERVISOR 06/27/2024 7:55 AM DIGITAL ACCOUNT SUPERVISOR us Bernard Bruce MD LAB BLOOD ORDERABLES Final Resul t Performing Organization Address City/State/[facility] Co de Phone Number [facility] [address] Department of Laboratories [place], [place] [id number] * (ABNORMAL) Urinalysis reflex to microscopic and culture Urine (06/19/2024 7:06 PM DIGITAL ACCOUNT SUPERVISOR) Color, ur Yellow Yellow Comment:Testing performed by : [address] [address] Clarity, ur Clear Clear NEEL SMITH Comment:Testing performed by : [address] [address] Specific gravity, ur 1.023 1.003 - 1.030 NEEL Comment:Testing performed by : [address] [address] pH, urine 6.0 NEEL Comment: Interpretive Data U rine pH is affected by diet, medications, systemic acid-base disturbances, and renal tubular function. pH may affect urinary stone formation. For example, urine pH below 6.0 may help reduce the tendency for calcium phosphate stones and pH greater than 6.0 may reduce the tendency for uric acid stone formation. Source: [facility] [place] Current Interpretive Data was last revised on 2017 Testing performed by: [facility], [address] [place] [address], [place]., [address] Protein, ur ql Trace(A) Negative NEEL Comment:Testing performed by : [address], [place]., [address] Glucose, ur ql Negative Negative NEEL Comment:Testing performed by : [address], [place]., [address] Ketones, ur 1+(A) Negative NEEL Comment:Testing performed by : [address] [address] Bilirubin, ur Negative Negative NEEL Comment:Testing performed by : [address], [place]., [address] Blood, ur Negative Negative NEEL Comment:Testing performed by : [address], [place]., [address] Urobilinogen, ur <2.0 <2.0 mg/dL NEEL Comment:Testing performed by : [address] [address] Nitrite, ur Negative Negative NEEL Comment:Testing performed by : [address] [address] Leukocyte esterase, ur Negative Negative NEEL Comment:Testing performed by : [address], [place]., [address] UA reflex comment Reflex to microscopic UA will be performed. NEEL Comment:Testing performed by : [address], [place]., [address] Urine 06/19/2024 7:06 PM DIGITAL ACCOUNT SUPERVISOR 06/19/2024 7:11 PM DIGITAL ACCOUNT SUPERVISOR us Terri Fuentes MD LAB MICROBIOLOGY - GENER AL ORDERABLES Final Result Performing Organization Address [facility] de Phone Number NEEL [address] [place] [address] * (ABNORMAL) Urinalysis, microscopic only (06/19/2024 7:06 PM DIGITAL ACCOUNT SUPERVISOR) WBC, ur 0-5 0 - 5 /HPF Comment:Testing performed by : [facility], [address] [place] [address]., [address] RBC, ur 0-2 0 - 2 /HPF NEEL Comment:Testing performed by : [facility], [address] [place] [address], [place]., [address] Bacteria, ur Trace(A) NEEL Comment:Testing performed by : [address] [address] Mucous, ur Present(A) NEEL Comment:Testing performed by : [address] [address] Culture Reflex Comment Reflex conditions for urine culture (WBC >10) not met. NEEL Comment:Testing performed by : [address] [address] Urine 06/19/2024 7:06 PM DIGITAL ACCOUNT SUPERVISOR 06/19/2024 7:11 PM DIGITAL ACCOUNT SUPERVISOR Terri Fuentes MD LAB URINE ORDERABLES Fin al Result Performing Organization Address [facility] de Phone Number NEEL [facility] [place] [address] * ECG 12 lead (06/19/2024 7:04 PM DIGITAL ACCOUNT SUPERVISOR) Ventricular Rate EKG/Min 67 BPM [facility] Atrial Rate 67 BPM [facility] NV-Interval (MSEC) 106 ms [facility] QRS-Interval (MSEC) 102 ms [facility] QT-Interval (MSEC) 410 ms [facility] QTc 433 ms [facility] P [place] 28 degrees [facility] R [place] 37 degrees [facility] T [place] 50 degrees [facility] Diagnosis Sinus rhythm with short NV with sinus arrhythmia Within normal limits When compared with ECG of 20-APR-2024 12:58, No significant change Confirmed by SULTAN DE JESUS M.D. ([id number]) on 06/20/2024 1:51:59 PM [facility] 06/19/2024 7:04 PM DIGITAL ACCOUNT SUPERVISOR 06/20/2024 1:51 PM DIGITAL ACCOUNT SUPERVISOR Terri Fuentes MD ECG ORDERABLES Final Re sult Performing Organization Address City/[facility] Co de Phone Number [facility] * Troponin T high-sensitivity series (baseline, 2hr, 4hr, 6hr) (06/19/2024 6:56 PM DIGITAL ACCOUNT SUPERVISOR) Pathologist [facility] Trop T hs <6 <=22 ng/L Comment: Interpretive Data For further hscTnT resources including the diagnostic algorithm and an aid in interpretation, copy and paste this link: https://nrl.testcatalog.org/show/hsTrop Current Interpretive Data last revised 2020. Testing performed by: [facility], [address] [place] [address]., [address] Blood 06/19/2024 6:56 PM DIGITAL ACCOUNT SUPERVISOR 06/19/2024 7:03 PM DIGITAL ACCOUNT SUPERVISOR Terri Fuentes MD LAB BLOOD ORDERABLES Fin al Result Performing Organization Address [facility] Co de Phone Number [place] [id number] Department [place] [address] * eGFR (06/19/2024 6:56 PM DIGITAL ACCOUNT SUPERVISOR) eGFR >90 >=60 mL/min/1. 73 m2 Comment: [...] of Race in Diagnosing Kidney Disease, JASN 202). The CKD-EPI equation should not be used for patients with unstable renal function and has not been validated in children and those over 70. Current interpretive data was last reviewed 2021. Testing performed by: [address] [address] Blood 06/19/2024 6:56 PM DIGITAL ACCOUNT SUPERVISOR 06/19/2024 7:03 PM DIGITAL ACCOUNT SUPERVISOR us Terri Fuentes MD LAB BLOOD ORDERABLES Fin al Result [facility] [address] Department [place] [address] * (ABNORMAL) Differential, auto (06/19/2024 6:56 PM DIGITAL ACCOUNT SUPERVISOR) Neutrophil abs 17.4(H) 1.5 - 6.5 K/cumm Comment:Testing performed by : [address] [address] Imm gran abs 0.1 0.0 - 0.1 K/cumm NEEL Comment:Testing performed by : [address] [address] Lymphocyte abs 1.2 0.8 - 3.3 K/cumm NEEL Comment:Testing performed by : [address] [address] Monocyte abs 1.1(H) 0.2 - 0.8 K/cumm NEEL Comment:Testing performed by : [address] [address] Eosinophil abs 0.0 0.0 - 0.5 K/cumm NEEL Comment:Testing performed by : [address] [address] Basophil abs 0.1 0.0 - 0.1 K/cumm NEEL Comment:Testing performed by : [address] [place] [address] Neutrophil pct 87.3 % [facility] Comment: Interpretive Data Percent cell count reference ranges are not reported, since discordance with absolute values may lead to misinterpretation of CBC data. Current Interpretive Data was last revised on 2017. Testing performed by: [address] [address] Imm gran pct 0.7 % [facility] Comment: Interpretive Data Percent cell count reference ranges are not reported, since discordance with absolute values may lead to misinterpretation of CBC data. Current Interpretive Data was last revised on 2017. Testing performed by: [address] [address] Lymphocyte pct 6.2 % [facility] Comment: Interpretive Data Percent cell count reference ranges are not reported, since discordance with absolute values may lead to misinterpretation of CBC data. Current Interpretive Data was last revised on 2017. Testing performed by: [address] [address] Monocyte pct 5.5 % [facility] Comment: Interpretive Data Percent cell count reference ranges are not reported, since discordance with absolute values may lead to misinterpretation of CBC data. Current Interpretive Data was last revised on 2017. Testing performed by: [address] [address] Eosinophil pct 0.0 % [facility] Comment: Interpretive Data Percent cell count reference ranges are not reported, since discordance with absolute values may lead to misinterpretation of CBC data. Current Interpretive Data was last revised on 2017. Testing performed by: [address] [address] Basophil pct 0.3 % [facility] Comment: Interpretive Data Percent cell count reference ranges are not reported, since discordance with absolute values may lead to misinterpretation of CBC data. Current Interpretive Data was last revised on 2017. Testing performed by: [address] [address] Blood 06/19/2024 6:56 PM DIGITAL ACCOUNT SUPERVISOR 06/19/2024 7:03 PM DIGITAL ACCOUNT SUPERVISOR us Terri Fuentes MD LAB BLOOD ORDERABLES Fin al Result NEEL [address] Department [place] [address] * (ABNORMAL) CBC with auto differential (06/19/2024 6:56 PM DIGITAL ACCOUNT SUPERVISOR) WBC 20.0(H) 3.8 - 9.9 K/cumm Comment:Testing performed by : [address] [address] Hgb 13.8 13.0 - 17.5 g/dL NEEL Comment:Testing performed by : [address], [address] Hct 41.3 38.9 - 50.3 % NEEL Comment:Testing performed by : [address] [address] Plt 330 150 - 400 K/cumm NEEL Comment:Testing performed by : [address], [address] MPV 9.8 9.1 - 12.3 fL NEEL Comment:Testing performed by : [address], [address] RBC 5.02 4.30 - 5.80 M/cumm NEEL Comment:Testing performed by : [address] [address] MCV 82.3 81.3 - 96.4 fL NEEL Comment:Testing performed by : [address] [address] MCH 27.5 27.1 - 33.3 pg NEEL Comment:Testing performed by : [address], [address] MCHC 33.4 32.3 - 35.7 g/dL NEEL Comment:Testing performed by : [address] [address] RDW CV 15.8(H) 11.1 - 14.9 % NEEL Comment:Testing performed by : [address] [address] RDW SD 46.4 35.7 - 48.1 fL NEEL SMITH Comment:Testing performed by : [address] [address] NRBC abs 0.00 0.00 - 0.01 K/cumm NEEL SMITH Comment:Testing performed by : [address] [address] Blood Venous blood specimen / Unknown 06/19/2024 6:56 PM DIGITAL ACCOUNT SUPERVISOR 06/19/2024 7:03 PM DIGITAL ACCOUNT SUPERVISOR Terri Fuentes MD LAB BLOOD ORDERABLES Fin al Result [address] [place] [address] * Lipase (06/19/2024 6:56 PM DIGITAL ACCOUNT SUPERVISOR) Pathologist [facility] Lipase 90 10 - 99 Units/L Comment:Testing performed by : [address] [address] Blood Venous blood specimen / Unknown 06/19/2024 6:56 PM DIGITAL ACCOUNT SUPERVISOR 06/19/2024 7:03 PM DIGITAL ACCOUNT SUPERVISOR Terri Fuentes MD LAB BLOOD ORDERABLES Fin al Result Performing Organization Address City/[facility]/ZIP Co de Phone Number [address] [address] * Comprehensive metabolic panel (06/19/2024 6:56 PM DIGITAL ACCOUNT SUPERVISOR) Sodium 142 135 - 145 mmol/L Comment:Testing performed by : [address] [address] Potassium, pl 4.2 3.3 - 4.9 mmol/L NEEL SMITH Comment:Testing performed by : [address] [address] Chloride 106 97 - 110 mmol/L NEEL SMITH Comment:Testing performed by : [address] [address] CO2 22 22 - 32 mmol/L [facility] Comment:Testing performed by : [address] [address] Anion gap 14 2 - 15 mmol/L [facility] Comment:Testing performed by : [address], [place]., [address] BUN 15 6 - 25 mg/dL [facility] Comment:Testing performed by : [address], [place]., [address] Creatinine 0.97 0.80 - 1.30 mg/dL [facility] Comment:Testing performed by : [address], [place]., [address] Glucose 144 70 - 199 mg/dL [facility] Comment: Interpretive Data Fasting glucose >/= [...] was last revised 2022. Testing performed by: [address] [address] Calcium 9.9 8.5 - 10.3 mg/dL [facility] Comment:Testing performed by : [address] [address] Bilirubin, total 0.4 0.1 - 1.2 mg/dL [facility] Comment:Testing performed by : [address] [address] Protein, pl 7.4 6.5 - 8.5 g/dL [facility] Comment:Testing performed by : [address] [address] Albumin 4.5 3.5 - 5.0 g/dL NEEL Comment:Testing performed by : [address] [address] Alk phos 92 40 - 130 Units/L NEEL Comment:Testing performed by : [facility], [address] [place] [address]., [address] ALT 26 7 - 55 Units/L NEEL SMITH Comment:Testing performed by : [address] [address] AST 25 10 - 50 Units/L NEEL SMITH Comment:Testing performed by : [facility], [address] [place] [address]., [address] Blood 06/19/2024 6:56 PM DIGITAL ACCOUNT SUPERVISOR 06/19/2024 7:03 PM DIGITAL ACCOUNT SUPERVISOR us Terri Fuentes MD LAB BLOOD ORDERABLES Fin al Result NEEL [address] Department [place] [address] * (ABNORMAL) Drugs of Abuse Screen, Urine without Confirmation (05/20/2024 7:37 PM DIGITAL ACCOUNT SUPERVISOR) Pathologist [facility] Amphetamine, ur Not Detected CutOff 500ng/mL Comment: [...] Screen Positive, presumptive (A) CutOff 50 ng/mL NEEL Comment: Interpretive Data - Cannabinoids: Samples containing greater than 50 ng/mL delta-9 THC -COOH or other cross- reacting compounds are reported as positive. False positive and false negative results are possible. Confirmatory testing required for definitive results. Current Interpretive Data was last reviewed 2022. Cocaine, ur Not Detected CutOff 150ng/mL [facility] Comment: Interpretive Data - Cocaine: Samples containing greater than 150 ng/mL benzoylecgonine or other cross- reacting compounds are reported as positive. False positive and false negative results are possible. Confirmatory testing required for definitive results. Current Interpretive Data was last reviewed 2022. Fentanyl, Ur Not Detected CutOff 5 ng/mL [facility] Comment: Interpretive Data - Fentanyl: Samples containing greater than 5 ng/mL norfentanyl, fentanyl, or other cross-reacting fentanyl compounds are reported as positive. False positive and false negative results are possible. Confirmatory testing required for definitive results. Current Interpretive Data was last reviewed 2023. Methadone, ur Not Detected CutOff 300ng/mL [facility] Comment: Interpretive Data - Methadone: Samples containing greater than 300 ng/mL d,l-methadone or other cross-reacting compounds are reported as positive. False positive and false negative results are possible. Confirmatory testing required for definitive results. Current Interpretive Data was last reviewed 2022. Opiates, ur Not Detected CutOff 300ng/mL [facility] Comment: Interpretive Data - Opiates: Samples containing greater than 300 ng/mL morphine or other cross-reacting compounds are reported as positive. False positive and false negative results are possible. Confirmatory testing required for definitive results. Current Interpretive Data was last reviewed 2022. Oxycodone, ur Not Detected CutOff 100ng/mL [facility] Comment: Interpretive Data - Oxycodone: Samples containing greater than 100 ng/mL oxycodone or other cross-reacting compounds are reported as positive. False positive and false negative results are possible. Confirmatory testing required for definitive results. Current Interpretive Data was last reviewed 2022. Phencyclidine, ur Not Detected CutOff 25 ng/mL [facility] Comment: Interpretive Data - Phencyclidine: Samples containing [...] revised on 2017. Urine 05/20/2024 7:37 PM DIGITAL ACCOUNT SUPERVISOR 05/20/2024 7:40 PM DIGITAL ACCOUNT SUPERVISOR Narrative [facility] - 05/20/2024 8:04 PM DIGITAL ACCOUNT SUPERVISOR Drug of Abuse screening is performed by immunoassay for medical purposes only. This is not to be used for Pain Management purposes. us Kelly [facility] URINE ORDERABLES F inal Result NEEL [address] Department [place] [address] * CT Abdomen Pelvis W Contrast (05/20/2024 5:56 PM DIGITAL ACCOUNT SUPERVISOR) Anatomical Region Laterality Modality Body N/A Computed Tomogra phy 05/20/2024 6:54 PM DIGITAL ACCOUNT SUPERVISOR Narrative 05/20/2024 7:00 PM DIGITAL ACCOUNT SUPERVISOR EXAM DESCRIPTION: CT ABDOMEN PELVIS W CONTRAST REASON FOR STUDY: Abdominal pain, acute, nonlocalized Pt c/o abdominal pain [id number] with NV. Hx: cholecystectomy TECHNIQUE: CT scan [...] Francisco Jesus M.D. KT T: Report ID: [id number] Reading Location: [id number] Procedure Note Jose Frnacisco Jesus MD - 05/20/2024 EXAM DESCRIPTION: CT ABDOMEN PELVIS W CONTRAST REASON FOR STUDY: Abdominal pain, acute, nonlocalized Pt c/o abdominal pain [id number] with NV. Hx: cholecystectomy TECHNIQUE: CT scan [...] Francisco Jesus M.D. KT T: Report ID: [id number] Reading Location: [id number] Kelly [facility]WTON IMG CT PROCEDURES Renee l Result * Sepsis Lactate w/ Reflex (05/20/2024 5:16 PM DIGITAL ACCOUNT SUPERVISOR) Sepsis Lactate 1.5 0.7 - 2.0 mmol/L Blood 05/20/2024 5:16 PM DIGITAL ACCOUNT SUPERVISOR 05/20/2024 5:18 PM DIGITAL ACCOUNT SUPERVISOR [facility] BLOOD ORDERABLES F inal Result [facility] [address] Department [place] [address] * eGFR (05/20/2024 4:03 PM DIGITAL ACCOUNT SUPERVISOR) eGFR >90 >=60 mL/min/1. 73 m2 Comment: [...] last reviewed 2021. Blood 05/20/2024 4:03 PM DIGITAL ACCOUNT SUPERVISOR 05/20/2024 4:07 PM DIGITAL ACCOUNT SUPERVISOR us Freddy Bell MD LAB BLOOD ORDERABLES Final Result NEEL [address] Department [place] [address] * (ABNORMAL) Differential, auto (05/20/2024 4:03 PM DIGITAL ACCOUNT SUPERVISOR) Neutrophil abs 15.0(H) 1.5 - 6.5 K/cumm Imm gran abs 0.1 0.0 - 0.1 K/cumm [facility] Lymphocyte abs 3.1 0.8 - 3.3 K/cumm [facility] Monocyte abs 1.6(H) 0.2 - 0.8 K/cumm [facility] Eosinophil abs 0.2 0.0 - 0.5 K/cumm [facility] Basophil abs 0.1 0.0 - 0.1 K/cumm [facility] Neutrophil pct 74.9 % [facility] Comment: Interpretive Data Percent cell count reference ranges are not reported, since discordance with absolute values may lead to misinterpretation of CBC data. Current Interpretive Data was last revised on 2017. Imm gran pct 0.5 % [facility] Comment: Interpretive Data Percent cell count reference ranges are not reported, since discordance with absolute values may lead to misinterpretation of CBC data. Current Interpretive Data was last revised on 2017. Lymphocyte pct 15.3 % [facility] Comment: Interpretive Data Percent cell count reference ranges are not reported, since discordance with absolute values may lead to misinterpretation of CBC data. Current Interpretive Data was last revised on 2017. Monocyte pct 7.8 % [facility] Comment: Interpretive Data Percent cell count reference ranges are not reported, since discordance with absolute values may lead to misinterpretation of CBC data. Current Interpretive Data was last revised on 2017. Eosinophil pct 1.1 % [facility] Comment: Interpretive Data Percent cell count reference ranges are not reported, since discordance with absolute values may lead to misinterpretation of CBC data. Current Interpretive Data was last revised on 2017. Basophil pct 0.4 % [facility] Comment: Interpretive Data Percent cell count reference ranges are not reported, since discordance with absolute values may lead to misinterpretation of CBC data. Current Interpretive Data was last revised on 2017. Blood 05/20/2024 4:03 PM DIGITAL ACCOUNT SUPERVISOR 05/20/2024 4:07 PM DIGITAL ACCOUNT SUPERVISOR Freddy Bell MD LAB BLOOD ORDERABLES Final Result Performing Organization Address [facility] de Phone Number NEEL [address] [place] [address] * (ABNORMAL) Urinalysis reflex to microscopic and culture Urine (05/20/2024 4:03 PM DIGITAL ACCOUNT SUPERVISOR) Color, ur Yellow Yellow Clarity, ur Cloudy(A) Clear [facility] Specific gravity, ur 1.021 1.003 - 1.030 [facility] pH, urine 6.5 [facility] Comment: Interpretive Data U rine pH is affected by diet, medications, systemic acid-base disturbances, and renal tubular function. pH may affect urinary stone formation. For example, urine pH below 6.0 may help reduce the tendency for calcium phosphate stones and pH greater than 6.0 may reduce the tendency for uric acid stone formation. Source: [facility] Current Interpretive Data was last revised on 2017 Protein, ur ql Negative Negative [facility] Glucose, ur ql Negative Negative [facility] Ketones, ur Negative Negative [facility] Bilirubin, ur Negative Negative [facility] Blood, ur Negative Negative [facility] Urobilinogen, ur <2.0 <2.0 mg/dL [facility] Nitrite, ur Negative Negative [facility] Leukocyte esterase, ur Negative Negative [facility] UA reflex comment Reflex conditions for microscopic UA and culture not met. [facility] Urine 05/20/2024 4:03 PM DIGITAL ACCOUNT SUPERVISOR 05/20/2024 4:07 PM DIGITAL ACCOUNT SUPERVISOR Freddy Bell MD LAB MICROBIOLOGY - GENERAL ORDERABLES Final Result Performing Organization Address [facility] Co de Phone Number NEEL [address] [place] [address] * (ABNORMAL) CBC with auto differential (05/20/2024 4:03 PM DIGITAL ACCOUNT SUPERVISOR) [facility] WBC 20.1(H) 3.8 - 9.9 K/cumm Hgb 14.2 13.0 - 17.5 g/dL [facility] Hct 43.4 38.9 - 50.3 % [facility] Plt 327 150 - 400 K/cumm [facility] MPV 9.9 9.1 - 12.3 fL [facility] RBC 5.20 4.30 - 5.80 M/cumm [facility] MCV 83.5 81.3 - 96.4 fL [facility] MCH 27.3 27.1 - 33.3 pg [facility] MCHC 32.7 32.3 - 35.7 g/dL [facility] RDW CV 15.9(H) 11.1 - 14.9 % [facility] RDW SD 47.5 35.7 - 48.1 fL [facility] NRBC abs 0.00 0.00 - 0.01 K/cumm [facility] Blood Venous blood specimen / Unknown 05/20/2024 4:03 PM DIGITAL ACCOUNT SUPERVISOR 05/20/2024 4:07 PM DIGITAL ACCOUNT SUPERVISOR Freddy Bell MD LAB BLOOD ORDERABLES Final Result [address] [employer] [place] [address] * Lipase (05/20/2024 4:03 PM DIGITAL ACCOUNT SUPERVISOR) [facility] Lipase 34 10 - 99 Units/L Blood Venous blood specimen / Unknown 05/20/2024 4:03 PM DIGITAL ACCOUNT SUPERVISOR 05/20/2024 4:07 PM DIGITAL ACCOUNT SUPERVISOR Freddy Bell MD LAB BLOOD ORDERABLES Final Result Performing Organization Address City/[facility]/ZIP Co de Phone Number [address] [employer] [place] [address] * Comprehensive metabolic panel (05/20/2024 4:03 PM DIGITAL ACCOUNT SUPERVISOR) [facility] Sodium 142 135 - 145 mmol/L Potassium, pl 3.6 3.3 - 4.9 mmol/L [facility] Chloride 105 97 - 110 mmol/L [facility] CO2 24 22 - 32 mmol/L [facility] Anion gap 13 2 - 15 mmol/L [facility] BUN 12 6 - 25 mg/dL [facility] Creatinine 1.00 0.80 - 1.30 mg/dL [facility] Glucose 101 70 - 199 mg/dL [facility] Comment: Interpretive Data Fasting glucose >/= [...] 2022. Calcium 10.1 8.5 - 10.3 mg/dL [facility] Bilirubin, total 0.3 0.1 - 1.2 mg/dL [facility] Protein, pl 7.3 6.5 - 8.5 g/dL [facility] Albumin 4.5 3.5 - 5.0 g/dL [facility] Alk phos 97 40 - 130 Units/L [facility] ALT 22 7 - 55 Units/L [facility] AST 24 10 - 50 Units/L [facility] Blood 05/20/2024 4:03 PM DIGITAL ACCOUNT SUPERVISOR 05/20/2024 4:07 PM DIGITAL ACCOUNT SUPERVISOR us Freddy Bell MD LAB BLOOD ORDERABLES Final Result [facility] [address] Department [place] [address] from Last 3 Months Insurance [facility] Advance Directives For more information, please contact: [phone] * Full Code (Latest Code Status on [...] 11:23 AM 02/10/2022 10:36 PM Care Teams Satellite Manager Relationship Specialty Start Date End Date Td Lopez MD [address] [facility] [address] [place] [address] PCP - General Family Medicine 11/09/20 Angie Woodard MD [address] [facility] [address] [place] [address] Consulting Physician Gastroenterology 07/17/21 Vimal Woodruff MD [address] [facility] [address] [place] [address] Consulting Physician Gastroenterology 02/10/22
--- OUTSIDE RECORDS SUMMARY | 2024-08-05 18:05 | XMS_ITS | Encounter Summary ---
Author Organization [facility] Healthcare Address [address] [place] [address] Care Team Providers Care Scrap Materials Buyer Name Role Phone Td Lopez MD Primary Care Provider + Angie Woodard MD Unavailable [phone] Vimal Woodruff MD Unavailable [phone] Reason for Visit * Reason Comments Unsuccessful Phone Call 1 [facility] ph 08/03 Abdominal pain Encounter Details Date Type Department Care Team (Late st Contact Info) Description 08/04/2024 DIPTI ED Outreach [facility] Accountable Care Organization [address] [place] [id number] Alannah Baumann [address] [place] [id number] Social History Tobacco Use Types Packs/Day Years Used Date Smoking Tobacco: Every Day Cigarettes Smokeless Tobacco: Never Alcohol Use Standard Drinks/Week Comments Not Currently 0 (1 standard drink = 0.6 oz pur e alcohol) [facility] Utilities Answer Date Recorded In the past 12 months has [employer] electric, gas, oil, or water company threatened [...] often do you attend chur ch or adventism services? Never 09/21/2023 Do you belong to any clubs o r organizations such as zoroastrian groups, unions, fraternal or athletic groups, or [...] place to sleep or slept in a prison (including now)? No 09/21/2023 PHQ-9 Answer Date Recorded PHQ-9 Total Score 5 03/25/2024 Personal Safety Answer Date Recorded Have you ever been in or are you currently in a harmful physical or emotional relationship or is someone making you feel afraid or unsafe? Denies 08/03/2024 Sex and Gender Information Value Date Recorded Sex Assigned at Not on file Legal Sex Male 3:38 AM TOWER OPERATOR Gender Identity Not on file Sexual Orientation Not on file documented as of this encounter Progress Notes * Alannah Baumann MA - 08/04/2024 12:11 PM CDT Pt has been to ED several times, have not been able to contact pt, several ORC will close episode. Thank You, JALEESA Herman ACO Care Import/Export Analyst [facility] Medical Group documented in this encounter Plan of Treatment Not on file documented as of this encounter Visit Diagnoses Not on filedocumented in this encounter Care Teams Scrap Materials Buyer Relationship Specialty Start Date End Date Td Lopez MD [facility] [address] [place] [address] PCP - General Family Medicine 11/09/20 Angie Woodard MD [address] [facility] [address] [place] [address] Consulting Physician Gastroenterology 07/17/21 Vimal Woodruff MD [address] [facility] [address] [place] [address] Consulting Physician Gastroenterology 02/10/22 documented as of this encounter
--- OUTSIDE RECORDS SUMMARY | 2024-08-05 18:05 | XMS_ITS | Encounter Summary ---
Author Organization [facility] Healthcare Address [address] [place] [address] Care Team Providers Care Airport Duty Manager Name Role Phone Td Lopez MD Primary Care Provider + Angie Woodard MD Unavailable [phone] Vimal Woodruff MD Unavailable [phone] PastorAlannah MA Unavailable [phone] PastorAlannah MA Unavailable [phone] PastorAlannah MA Unavailable [phone] Encounter Details Date Type Department Care Team (Late st Contact Info) Description 12/21/2017 Documentation [id number] [place] [address] Shannan Farfan RN Social History Tobacco Use Types Packs/Day Years Used Date Smoking Tobacco: Every Day Sex and Gender Information Value Date Recorded Sex Assigned at Not on file Legal Sex Male 3:38 AM POTATO SEED CUTTER Gender Identity Not on file Sexual Orientation Not on file documented as of this encounter Plan of Treatment Not on file documented as of this encounter Visit Diagnoses Not on filedocumented in this encounter Additional Health Concerns Infection Onset Date Last Indicated Resolved Time MRSA Comment:201712/19/2020: IP review, no recent infection. MRSA surv. Negative x2 04/15/2018 04/14/20182020 3:05 PM CDT COVID: Suspected 06/27/2021 06/27/202106/27/2021 12:53 PM POTATO SEED CUTTER COVID19 06/27/2021 06/27/2021 07/08/2021 3:05 AM POTATO SEED CUTTER COVID: Recovered Comment:Added based on recent COVID infection. 07/08/2021 07/14/2021 11/05/2021 3:05 AM C DT COVID: Suspected 05/20/2022 05/20/2022 05/20/2022 2:32 AM POTATO SEED CUTTER COVID: Suspected 09/20/2023 09/20/2023 09/20/2023 9:26 PM CDT COVID: Suspected 10/04/2023 10/04/2023 10/04/2023 3:55 PM CDT documented as of this encounter Care Teams Airport Duty Manager Relationship Specialty Start Date End Date Td Lopez MD [address] [facility] [address] [place] [address] PCP - General Family Medicine 11/09/20 Angie Woodard MD [address] [facility] [address] [place] [address] Consulting Physician Gastroenterology 07/17/21 Vimal Woodruff MD [address] [facility] 110 [place] [address] Consulting Physician Gastroenterology 02/10/22 Alannah Baumann MA [address] [place] [address] [address] [place] [address] ACO Care Warehouse Consultant 12/31/23 01/05/24 Alannah Baumann MA [address] [place] [address] [address] [place] [address] ACO Care Warehouse Consultant 06/29/24 06/30/24 Alannah Baumann MA [address] [place] [address] [address] [place] [address] ACO Care Warehouse Consultant 08/03/24 08/03/24 documented as of this encounter
--- OUTSIDE RECORDS SUMMARY | 2024-08-05 18:05 | XMS_ITS | Patient Health Record ---
Author Organization [facility] Address [address] [facility] [address] [place] [address] Care Team Providers Care Nutrition Services Aide Name Role Phone John TUCKER, Td Primary Care Provider Tucker FIGUEROA EMPLOYMENT LEGAL ASSISTANT, NATALIYA Unavailable IFRAH TUCKER, BRODERICK Unavailable ALLERGIES [...] chronic pancreatitis (K86.1) Active confirmed Chronic pancreatitis (037713460) VITAL SIGNS Heart Rate 88 /min 10/23/2023 Blood pressure diastolic 81 mm Hg 10/23/2023 Height 70 in 10/23/2023 Blood pressure systolic 110 mm Hg 10/23/2023 Weight 159 lbs 10/23/2023 BMI 22.81 kg/m2 10/23/2023 Encounters Encounter Location Date Provider Diagnosis [facility] - Op [address] [facility] [address] [place] [id number] 09/21/2023 BRODERICKGENNY RG [facility] - Op [address] [facility] [address] [place], [place] [id number] 09/23/2023 BRODERICKGENNY RG [facility] [address] [place] [address] 02/29/2024 NATALIYA FIGUEROA [facility] [address] [place] [address] 10/23/2023 NATALIYA FIGUEROA Other chronic pancreatitis K86.1 [...] Insured Coverage Start Date Coverage End Date [address] [place], [place] [id number] Donovan Bailey Self - patient is the insured MEDICAL (GENERAL) HISTORY Medical History History ICD Code chronic pancreatitis cyclic vomiting hyperemesis cannabis Surgical History Surgery Date(Month/Year) cholecystectomy ERCP
--- OUTSIDE RECORDS SUMMARY | 2024-08-05 18:05 | XMS_ITS | Encounter Summary ---
Author Organization [facility] Healthcare Address [address] [place] [address] Care Team Providers Care Intensive Care Anaesthetist Name Role Phone Td Lopez MD Primary Care Provider + Angie Woodard MD Unavailable [phone] Vimal Woodruff MD Unavailable [phone] PastorAlannah MA Unavailable [phone] PastorAlannah fair MA Unavailable [phone] PastorAlannah MA Unavailable [phone] Encounter Details Date Type Department Care Team (Late st Contact Info) Description 12/30/2023 Orders Only [facility] Management [address] [place] [address] Scanning, Provider Social History Tobacco Use Types Packs/Day Years Used Date Smoking Tobacco: Every Day Cigarettes Smokeless Tobacco: Never Alcohol Use Standard Drinks/Week Comments Not Currently 0 (1 standard drink = 0.6 oz pur e alcohol) [facility] Utilities Answer Date Recorded In the past 12 months has [employer] electric, gas, oil, or water company threatened [...] often do you attend chur ch or gnosticist services? Never 09/21/2023 Do you belong to any clubs o r organizations such as temple groups, unions, fraternal or athletic groups, or [...] to sleep or slept in a senior care (including now)? No 09/21/2023 Personal Safety Answer Date Recorded Have you ever been in or are you currently in a harmful physical or emotional relationship or is someone making you feel afraid or unsafe? Denies 01/01/2024 Sex and Gender Information Value Date Recorded Sex Assigned at Not on file Legal Sex Male 3:38 AM STATION AGENT Gender Identity Not on file Sexual Orientation [...] on filedocumented in this encounter Care Teams Intensive Care Anaesthetist Relationship Specialty Start Date End Date Td Lopez MD [address] [facility] [address] [place] [address] PCP - General Family Medicine 11/09/20 Angie Woodard MD [address] [facility] [address] [place] [address] Consulting Physician Gastroenterology 07/17/21 Vimal Woodruff MD [address] [facility] [address] [place] [address] Consulting Physician Gastroenterology 02/10/22 Alannah Baumann MA [address] [place] [address] [address] [place] [address] ACO Care Information Security Engineer 12/31/23 01/05/24 Alannah Baumann MA [address] [facility] [address] [place] [address] ACO Care Information Security Engineer 06/29/24 06/30/24 Alannah Baumann MA [address] [facility] [address] [place] [address] ACO Care Information Security Engineer 08/03/24 08/03/24 documented as of this encounter
--- OUTSIDE RECORDS SUMMARY | 2024-08-05 18:05 | XMS_ITS ---
Author Organization [facility] Address [address] [place] [address] Care Team Providers Care Entry Driver Operator Name Role Phone John TUCKER, Td Primary Care Provider Unavaila jenny FIGUEROA JAVA WEB DEVELOPER, NATALIYA Unavailable IFRAH TUCKER, VIMAL Unavailable [phone] REASON FOR VISIT ERCP stent pull INPT Encounters Encounter Location Date Provider Diagnosis [facility] - Op [address] Scheduling [place], [place] [id number] 09/23/2023 VIMAL RG PLAN OF TREATMENT No Information Progress Notes * Donovan BROWN MDOB: 2 (44 yo M)Acc No.[id number]:09/23/2023 Patient: Donovan BROWN Provider: Vimal Rg MD, FASGE :1980 Age:43 Y Sex:Male Date:09/23/2023 Address:[address] [facility] Pcp:Td Lopez MD * Images: * Sign off status: Pending * Provider: Vimal Rg MD, FASGE Date: 09/23/2023
--- OUTSIDE RECORDS SUMMARY | 2024-08-05 18:05 | XMS_ITS | Referral Summary ---
Author Organization [facility] Address [address] [place] [address] Care Team Providers Care Contract Admin Name Role Phone Td Lopez MD Primary Care Provider + Angie Woodard MD Unavailable [phone] Vimal Woodruff MD Unavailable Encounters Date Type Department Care Team Description 08/04/2024 [facility] [address] [address] Alannah Baumann MA 08/03/2024 [facility] [address] [address] Alannah Baumann MA 08/03/2024 2:13 PM CDT - 08/03/2024 3:27 PM CDT Emergency [facility] Emergency Department [address] [place] [id number] Freddy Yao DO Chronic abdominal pain (Primary Dx); Drug-seeking behavior Discharge Disposition: Discharge to home or self care 08/02/2024 8:48 AM CDT - 08/02/2024 10:46 AM CDT Emergency [facility] Emergency Department [address] [place] [id number] Chronic abdominal pain (Primary Dx) Discharge Disposition: Discharge to home or self care 07/01/2024 [facility] Outreach [address] [address] Alannah Baumann MA 06/30/2024 [facility] Outreach [address] [address] Alannah Baumann MA 06/29/2024 [facility] Outreach [address] [address] Alannah Baumann MA 06/27/2024 9:01 AM ROBOT PROGRAMMER - 06/27/2024 12:15 PM [facility] Emergency Department [address] [place] [phone] Bernard Bruce MD Chronic pancreatitis, unspecified pancreatitis type (HCC) (Primary Dx) Discharge Disposition: Discharge to home or self care 06/19/2024 7:49 PM ROBOT PROGRAMMER - 06/19/2024 11:01 PM [facility] Emergency Department [address] [place] [phone] Terri Fuentes MD Chronic abdominal pain (Primary Dx); Nausea and vomiting, unspecified vomiting type; Leukocytosis, unspecified type Discharge Disposition: Discharge to home or self care 05/30/2024 [facility] Medical Office Bldg 1 OP Physical Therapy [address] [place] [address] Clem Traylor, SENIOR PIPING DESIGNER No Show 05/26/2024 7:15 AM [facility] Medical Office Bldg 1 OP Physical Therapy [address] [place] [address] Nelda Perez, PT Neck pain (Primary Dx) 05/26/2024 7:00 AM [facility] Medical Office Bldg 1 OP Physical Therapy [address] [place] [address] Yuliya Fernández PTA Neck pain (Primary Dx) 05/20/2024 4:35 PM ROBOT PROGRAMMER - 05/20/2024 9:[address] [address] Abdominal pain (Primary Dx) Discharge Disposition: Discharge to home or self care 05/19/2024 12:45 PM ROBOT PROGRAMMER Therapy [facility] Medical Office Bl 1 OP Physical Therapy [address] [place] [address] [place] [phone] Clem Traylor, SENIOR PIPING DESIGNER Neck pain (Primary Dx) 05/12/2024 7:45 AM ROBOT PROGRAMMER Therapy [facility] Medical Office Bl 1 OP Physical Therapy [address] [place] [address] [place] [phone] Clem Traylor, SENIOR PIPING DESIGNER Neck pain (Primary Dx) from Last 3 Months Allergies Active Allergy [...] for nausea or vomiting 20 tablet 06/27/19 25 Active famotidine (PEPCID) 40 mg tablet Take [...] 03/25/2024 Assessment & Plan (03/25/2024 11:50 AM ROBOT PROGRAMMER): - suspect just muscle strain - will check xray - offered PT but pt refused. 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 Assessment & Plan (03/25/2024 11:49 AM ROBOT PROGRAMMER): - ref to derm for eval Drug [...] pain Assessment & Plan (03/25/2024 11:49 AM ROBOT PROGRAMMER): - poor control - continue hyosciamine, famotidine, zofran - ref to GI for continued treatment Assessment & Plan (03/20/2023 11:07 AM ROBOT PROGRAMMER): - stable - continue current medication Duodenal [...] medication Assessment & Plan (07/15/2019 11:44 AM ROBOT PROGRAMMER): - stable - continue creon Annual physical [...] able Assessment & Plan (07/15/2019 11:46 AM ROBOT PROGRAMMER): - encourage healthy diet, exercise - check labs - encouraged quitting smoking 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 Assessment & Plan (07/15/2019 11:37 AM ROBOT PROGRAMMER): - encouraged pt to quit smoking Abdominal [...] GI Assessment & Plan (03/20/2023 11:07 AM ROBOT PROGRAMMER): - stable - continue current medication per [...] 09/17/202209/08 Assessment & Plan (03/20/2023 11:08 AM ROBOT PROGRAMMER): - stable off meds - will monitor [...] 09/25/2023 Assessment & Plan (03/26/2021 11:41 AM ROBOT PROGRAMMER): - stable today - continue current medications [...] lexapro Assessment & Plan (07/15/2019 11:38 AM ROBOT PROGRAMMER): - stable - continue current plan Gastroesophageal reflux dise ase without esophagitis 07/15/2019 03/18/2023 Overview (07/15/2019): - GERD managed by Dr Woodard - Pt on omeprazole and carafate for sx control Assessment & Plan (01/01/2021 12:09 PM CDT): - stable - continue current medication Assessment & Plan (02/07/2020 2:32 PM CDT): - stable - continue current medication Assessment & Plan (07/15/2019 11:38 AM ROBOT PROGRAMMER): - stable - continue omeprazole and carafate [...] prn Assessment & Plan (07/15/2019 11:44 AM ROBOT PROGRAMMER): - stable - continue bentyl and amitriptyline per GI recs Viral illness 07/08/2019 02/12/2021 Assessment & Plan (07/09/2019 9:12 AM ROBOT PROGRAMMER): Medrol Dosepak as directed. Recommended Mucinex plain [...] (09/17/2018): Added automatically from request for surgery [id number] Assessment & Plan (02/12/2021 11:23 AM CDT): - encouraged pt to f/u with new GI - continue hyoscyamine Assessment & Plan (01/01/2021 12:10 PM CDT): - continue prn oxycodone for now - discussed need to wean off of this as this is not a viable termite exterminator solution - will ref to pain management [...] medication Assessment & Plan (07/15/2019 11:36 AM ROBOT PROGRAMMER): - controlled - continue current plan Chronic [...] hyperemesis syndrome 09/25/2023 Intractable vomiting 021 Immunizations Immunization Administration Dates Next Due Influenza, [...] drink = 0.6 oz pur e alcohol) [facility] [employer] Answer Date Recorded In the past 12 months has th e electric, gas, oil, or water company [...] often do you attend chur ch or yarsani services? Never 09/21/2023 Do you belong to any clubs o r organizations such as christian groups, unions, fraternal or athletic groups, or [...] place to sleep or slept in a fdc (including now)? No 09/21/2023 PHQ-9 Answer Date Recorded PHQ-9 Total Score 5 03/25/2024 Personal Safety Answer Date Recorded Have you ever been in or are you currently in a harmful physical or emotional relationship or is someone making you feel afraid or unsafe? Denies 08/03/2024 Sex and Gender Information Value Date Recorded Sex Assigned at Not on file Legal Sex Male 3:38 AM ROBOT PROGRAMMER Gender Identity Not on file Sexual Orientation [...] 08/03/2024 1:38 PM CDT Plan of Treatment Not on file Medical Devices Explanted Type Area Classroom Paraprofessional Device Identifier Shelf Expiration Date Model / Serial / Lot LX [employer] [id number] Connell Flexi-Stent 7fr 5cm Small Pigtail Flexible .035in Stent - [id number] Implanted:Qty: 1 on 09/18/2018 by Vimal Woodruff MD at [facility] Explanted:Qty: 1 on 09/20/2018 at [facility] Stent N/A: Pancreas [employer] 06/10/2023 [id number] / / [id number] Conmed Gina [id number] Banks Viabil 10mm 8.5fr 6cm 200cm Fully Covered Self Expand Pull - [id number] - [id number] Implanted:Qty: 1 on 09/18/2018 by Vimal Woodruff MD at [facility] Explanted:Qty: 1 on 09/20/2018 at [facility] Stent N/A: Bile Duct [employer]med Gina 06/29/2021 [id number] / [id number] / [employer] Connell Flexi-Stent 7fr 9cm Small Pigtail Flexible .035in Stent 6575 - [id number] Implanted:Qty: 1 on 02/07/2022 by Vimal Woodruff MD at [facility] Explanted:Qty: 1 on 02/10/2022 by Vimal Woodruff MD at [facility] Stent N/A: Pancreas [employer] 09/07/2026 [id number] / / [id number] [employer] Gina Wallflex 10mm X 60mm Fully Covered Biliary [id number] - [id number] Implanted:Qty: 1 on 02/07/2022 by Vimal Woodruff MD at [facility] Explanted:Qty: 1 on 02/10/2022 by Vimal Woodruff MD at [facility] Stent N/A: Bile Duct [employer] Gina 11/04/2023 [id number] / / [id number] [employer] Connell Flexi-Stent 7fr 9cm Small Pigtail Flexible .035in Stent [id number] - [id number] Implanted:Qty: 1 on 09/21/2023 by Vimal Woodruff MD at [facility] Explanted:Qty: 1 on 09/23/2023 by Vimal Woodruff MD at [facility] Stent N/A: Pancreas [employer] 03/11/2028 [id number] / / [id number] Description:Not present at b eginning of case. Self migrated out [employer] Gina Wallflex 10mm X 60mm Fully Covered Biliary [id number] - [id number] Implanted:Qty: 1 on 09/21/2023 by Vimal Woodruff MD at [facility] Explanted:Qty: 1 on 09/23/2023 by Vimal Woodruff MD at [facility] Stent N/A: Bile Duct [employer] Gina 08/02/2025 [id number] / / [id number] Procedures Procedure Name Priority Date/Time Associated Diagnosis [...] T HIGH-SENSITIVITY 4-HR Timed 06/27/2024 11:44 AM ROBOT PROGRAMMER ECG 12-LEAD STAT 06/27/2024 9:[address] ABDOMEN PELVIS W CONTRAST ED 06/27/2024 9:42 AM ROBOT PROGRAMMER ETHANOL STAT 06/27/2024 7:53 AM ROBOT PROGRAMMER TROPONIN T HIGH-SENSITIVITY SERIES (BASELINE, 2HR, 4HR, 6HR) STAT 06/27/2024 7:53 AM ROBOT PROGRAMMER EGFR STAT 06/27/2024 7:53 AM ROBOT PROGRAMMER DIFFERENTIAL AUTO STAT 06/27/2024 7:5 3 AM ROBOT PROGRAMMER LIPASE STAT 06/27/2024 7:53 AM ROBOT PROGRAMMER COMPREHENSIVE METABOLIC PANEL STAT 06/27/2024 7:53 AM ROBOT PROGRAMMER CBC WITH AUTO DIFFERENTIAL STAT 06/27/2024 7:53 AM ROBOT PROGRAMMER URINALYSIS, MICROSCOPIC ONLY STAT 06/19/2024 7:06 PM ROBOT PROGRAMMER URINALYSIS AND REFLEX TO MICROSCOPIC AND CULTURE STAT 06/19/2024 7:06 PM ROBOT PROGRAMMER ECG 12-LEAD STAT 06/19/2024 7:04 PM ROBOT PROGRAMMER EGFR STAT 06/19/2024 6:56 PM ROBOT PROGRAMMER DIFFERENTIAL AUTO STAT 06/19/2024 6:5 6 PM ROBOT PROGRAMMER TROPONIN T HIGH-SENSITIVITY SERIES (BASELINE, 2HR, 4HR, 6HR) STAT 06/19/2024 6:56 PM ROBOT PROGRAMMER LIPASE STAT 06/19/2024 6:56 PM ROBOT PROGRAMMER COMPREHENSIVE METABOLIC PANEL STAT 06/19/2024 6:56 PM ROBOT PROGRAMMER CBC WITH AUTO DIFFERENTIAL STAT 06/19/2024 6:56 PM ROBOT PROGRAMMER DRUGS OF ABUSE SCREEN, URINE WITHOUT CONFIRMATION STAT 05/20/2024 7:[address] ABDOMEN PELVIS W CONTRAST ED 05/20/2024 5:56 PM ROBOT PROGRAMMER SEPSIS LACTATE WITH REFLEX STAT 05/20/2024 5:16 PM ROBOT PROGRAMMER EGFR STAT 05/20/2024 4:03 PM ROBOT PROGRAMMER DIFFERENTIAL AUTO STAT 05/20/2024 4:0 3 PM ROBOT PROGRAMMER LIPASE STAT 05/20/2024 4:03 PM ROBOT PROGRAMMER COMPREHENSIVE METABOLIC PANEL STAT 05/20/2024 4:03 PM ROBOT PROGRAMMER CBC WITH AUTO DIFFERENTIAL STAT 05/20/2024 4:03 PM ROBOT PROGRAMMER URINALYSIS AND REFLEX TO MICROSCOPIC AND CULTURE STAT 05/20/2024 4:03 PM ROBOT PROGRAMMER from Last 3 Months Results * Urinalysis reflex to microscopic and culture Urine (08/03/2024 1:50 PM CDT) Color, ur Yellow Yellow Comment:Testing performed by : [address] [address] Clarity, ur Clear Clear NEEL Comment:Testing performed by : [address] [address] Specific gravity, ur 1.009 1.003 - 1.030 NEEL Comment:Testing performed by : [address] [address] pH, urine 7.0 NEEL Comment: Interpretive Data U rine pH is affected by diet, medications, systemic acid-base disturbances, and renal tubular function. pH may affect urinary stone formation. For example, urine pH below 6.0 may help reduce the tendency for calcium phosphate stones and pH greater than 6.0 may reduce the tendency for uric acid stone formation. Source: [facility] [employer] Current Interpretive Data was last revised on 2017 Testing performed by: [address] [address] Protein, ur ql Negative Negative NEEL Comment:Testing performed by : [address] [address] Glucose, ur ql Negative Negative NEEL Comment:Testing performed by : [address] [address] Ketones, ur Negative Negative NEEL Comment:Testing performed by : [address] [address] Bilirubin, ur Negative Negative NEEL Comment:Testing performed by : [address] [address] Blood, ur Negative Negative NEEL Comment:Testing performed by : [address] [address] Urobilinogen, ur <2.0 <2.0 mg/dL NEEL SMITH Comment:Testing performed by : [address], [place] [address] Nitrite, ur Negative Negative NEEL SMITH Comment:Testing performed by : [facility], [address] [place] [address]., [address] Leukocyte esterase, ur Negative Negative NEEL SMITH Comment:Testing performed by : [facility], [address] [place] [address]., [address] UA reflex comment Reflex conditions for microscopic UA and culture not met. NEEL SMITH Comment:Testing performed by : [facility], [address] [place] [address]., [address] Urine 08/03/2024 1:50 PM CDT 08/03/2024 1:53 PM CDT Freddy Yao DO LAB MICROBIOLOGY - GENERAL ORDERABLES Final Result NEEL SMITH [address] [facility] Department [place] [address] * eGFR (08/03/2024 1:45 PM CDT) eGFR >90 >=60 mL/min/1. 73 m2 [...] was last reviewed 2021. Testing performed by: [facility], [address] [place] [address]., [address] Blood 08/03/2024 1:45 PM CDT 08/03/2024 1:53 PM CDT us Freddy Yao DO LAB BLOOD ORDERABLES Final Result NEEL [address] [facility] Department [place] [address] * (ABNORMAL) Differential, auto (08/03/2024 1:45 PM CDT) Neutrophil abs 7.8(H) 1.5 - 6.5 K/cumm Comment:Testing performed by : [address] [address] Imm gran abs 0.1 0.0 - 0.1 K/cumm NEEL Comment:Testing performed by : [address] [address] Lymphocyte abs 2.5 0.8 - 3.3 K/cumm NEEL Comment:Testing performed by : [address] [address] Monocyte abs 1.4(H) 0.2 - 0.8 K/cumm NEEL Comment:Testing performed by : [address] [address] Eosinophil abs 0.1 0.0 - 0.5 K/cumm NEEL Comment:Testing performed by : [address] [address] Basophil abs 0.1 0.0 - 0.1 K/cumm NEEL Comment:Testing performed by : [address] [address] Neutrophil pct 65.5 % NEEL Comment: Interpretive Data Percent cell count reference ranges are not reported, since discordance with absolute values may lead to misinterpretation of CBC data. Current Interpretive Data was last revised on 2017. Testing performed by: [address] [address] Imm gran pct 0.5 % NEEL Comment: Interpretive Data Percent cell count reference ranges are not reported, since discordance with absolute values may lead to misinterpretation of CBC data. Current Interpretive Data was last revised on 2017. Testing performed by: [address] [address] Lymphocyte pct 21.0 % [facility] Comment: Interpretive Data Percent cell count reference ranges are not reported, since discordance with absolute values may lead to misinterpretation of CBC data. Current Interpretive Data was last revised on 2017. Testing performed by: [address] [address] Monocyte pct 11.6 % [facility] Comment: Interpretive Data Percent cell count reference ranges are not reported, since discordance with absolute values may lead to misinterpretation of CBC data. Current Interpretive Data was last revised on 2017. Testing performed by: [address] [address] Eosinophil pct 0.8 % [facility] Comment: Interpretive Data Percent cell count reference ranges are not reported, since discordance with absolute values may lead to misinterpretation of CBC data. Current Interpretive Data was last revised on 2017. Testing performed by: [address] [address] Basophil pct 0.6 % [facility] Comment: Interpretive Data Percent cell count reference ranges are not reported, since discordance with absolute values may lead to misinterpretation of CBC data. Current Interpretive Data was last revised on 2017. Testing performed by: [address] [address] Blood 08/03/2024 1:45 PM CDT 08/03/2024 1:53 PM CDT us Freddy Yao DO LAB BLOOD ORDERABLES Final Result NEEL [address] [facility] Department [place] [address] * (ABNORMAL) CBC with auto differential (08/03/2024 1:45 PM CDT) WBC 11.9(H) 3.8 - 9.9 K/cumm Comment:Testing performed by : [address] [address] Hgb 13.3 13.0 - 17.5 g/dL NEEL Comment:Testing performed by : [address] [address] Hct 40.4 38.9 - 50.3 % NEEL Comment:Testing performed by : [address] [address] Plt 333 150 - 400 K/cumm NEEL Comment:Testing performed by : [address] [address] MPV 10.3 9.1 - 12.3 fL NEEL Comment:Testing performed by : [address], [address] RBC 4.81 4.30 - 5.80 M/cumm NEEL Comment:Testing performed by : [address] [address] MCV 84.0 81.3 - 96.4 fL NEEL Comment:Testing performed by : [address] [address] MCH 27.7 27.1 - 33.3 pg NEEL Comment:Testing performed by : [address] [address] MCHC 32.9 32.3 - 35.7 g/dL NEEL Comment:Testing performed by : [address] [address] RDW CV 16.4(H) 11.1 - 14.9 % NEEL Comment:Testing performed by : [address] [address] RDW SD 50.0(H) 35.7 - 48.1 fL NEEL Comment:Testing performed by : [address] [address] NRBC abs 0.00 0.00 - 0.01 K/cumm NEEL Comment:Testing performed by : [address] [address] Blood Venous blood specimen / Unknown 08/03/2024 1:45 PM CDT 08/03/2024 1:53 PM CDT Freddy Steele Jakidonald LAB BLOOD ORDERABLES Final Result NEEL [address] [employer] [address] * Lipase (08/03/2024 1:45 PM CDT) Lipase 58 10 - 99 Units/L Comment:Testing performed by : [address] [address] Blood Venous blood specimen / Unknown 08/03/2024 1:45 PM CDT 08/03/2024 1:53 PM CDT Freddy Yao LAB BLOOD ORDERABLES Final Result Performing Organization Address City/[facility] Co de Phone Number NEEL [address] [address] * Comprehensive metabolic panel (08/03/2024 1:45 PM CDT) Pathologist [facility] Sodium 142 135 - 145 mmol/L Comment:Testing performed by : [address] [address] Potassium, pl 3.9 3.3 - 4.9 mmol/L NEEL Comment:Testing performed by : [address] [address] Chloride 108 97 - 110 mmol/L NEEL Comment:Testing performed by : [address] [address] CO2 23 22 - 32 mmol/L NEEL Comment:Testing performed by : [address] [address] Anion gap 11 2 - 15 mmol/L NEEL Comment:Testing performed by : [address] [address] BUN 9 6 - 25 mg/dL NEEL Comment:Testing performed by : [address] [address] Creatinine 0.90 0.80 - 1.30 mg/dL NEEL Comment:Testing performed by : [address] [address] Glucose 107 70 - 199 mg/dL NEEL [...] was last revised 2022. Testing performed by: [address] [address] Calcium 9.4 8.5 - 10.3 mg/dL NEEL Comment:Testing performed by : [address] [address] Bilirubin, total 0.3 0.1 - 1.2 mg/dL NEEL Comment:Testing performed by : [address] [address] Protein, pl 7.1 6.5 - 8.5 g/dL NEEL Comment:Testing performed by : [address] [address] Albumin 4.3 3.5 - 5.0 g/dL NEEL Comment:Testing performed by : [address] [address] Alk phos 80 40 - 130 Units/L NEEL Comment:Testing performed by : [address] [address] ALT 23 7 - 55 Units/L NEEL Comment:Testing performed by : [address] [address] AST 32 10 - 50 Units/L NEEL Comment:Testing performed by : [address] [address] Blood 08/03/2024 1:45 PM CDT 08/03/2024 1:53 PM CDT us Freddy Yao DO LAB BLOOD ORDERABLES Final Result NEEL [address] [facility] Department [place] [address] * CT Abdomen Pelvis W Contrast (08/02/2024 [...] Priti Salmeron M.D. TW: JENNA Report ID: [id number] Reading Location: [id number] Procedure Note Priti Salmeron MD - 08/02/2024 [...] Priti Salmeron M.D. TW: JENNA Report ID: [id number] Reading Location: [id number] Vijaya [address] CT PROCEDURES Final Result * (ABNORMAL) Urinalysis reflex to microscopic and culture Urine (08/02/2024 8:48 AM CDT) Color, ur Yellow Yellow Comment:Testing performed by : [address] [address] Clarity, ur Clear Clear NEEL Comment:Testing performed by : [address] [address] Specific gravity, ur 1.025 1.003 - 1.030 NEEL Comment:Testing performed by : [address], [place]., [address] pH, urine 8.0 NEEL Comment: Interpretive Data U rine pH is affected by diet, medications, systemic acid-base disturbances, and renal tubular function. pH may affect urinary stone formation. For example, urine pH below 6.0 may help reduce the tendency for calcium phosphate stones and pH greater than 6.0 may reduce the tendency for uric acid stone formation. Source: [facility] [employer] Current Interpretive Data was last revised on 2017 Testing performed by: [address] [address] Protein, ur ql 1+(A) Negative NEEL Comment:Testing performed by : [address] [address] Glucose, ur ql Trace(A) Negative NEEL Comment:Testing performed by : [address] [address] Ketones, ur 2+(A) Negative NEEL Comment:Testing performed by : [address] [address] Bilirubin, ur Negative Negative NEEL Comment:Testing performed by : [address] [address] Blood, ur Negative Negative NEEL Comment:Testing performed by : [address] [address] Urobilinogen, ur <2.0 <2.0 mg/dL NEEL Comment:Testing performed by : [address] [address] Nitrite, ur Negative Negative NEEL Comment:Testing performed by : [address] [address] Leukocyte esterase, ur Negative Negative NEEL Comment:Testing performed by : [address] [address] UA reflex comment Reflex to microscopic UA will be performed. NEEL Comment:Testing performed by : [address] [address] Urine 08/02/2024 8:48 AM CDT 08/02/2024 8:54 AM CDT Freddy Yao DO LAB MICROBIOLOGY - GENERAL ORDERABLES Final Result Performing Organization Address [facility] Co de Phone Number NEEL [address] [employer] [place] [address] * (ABNORMAL) Urinalysis, microscopic only (08/02/2024 8:48 AM CDT) Pathologist [facility] WBC, ur 0-5 0 - 5 /HPF Comment:Testing performed by : [facility], [address] [place] [address]., [address] RBC, ur 0-2 0 - 2 /HPF NEEL Comment:Testing performed by : [facility], [address] [place] [address]., [address] Epithelial cells, squamous, ur 1-5 0 - 5 /HPF NEEL Comment:Testing performed by : [address] [address] Mucous, ur Present(A) NEEL Comment:Testing performed by : [address] [address] Culture Reflex Comment Reflex conditions for urine culture (WBC >10) not met. NEEL Comment:Testing performed by : [address] [address] Urine 08/02/2024 8:48 AM CDT 08/02/2024 8:54 AM CDT Freddy Yao DO [facility] URINE ORDERABLES Final Result Performing Organization Address [facility] Co de Phone Number NEEL [facility] [employer] [address] * eGFR (08/02/2024 8:43 AM CDT) Pathologist [facility] Department eGFR >90 >=60 mL/min/1. 73 m2 Comment: [...] was last reviewed 2021. Testing performed by: [address] [address] Blood 08/02/2024 8:43 AM CDT 08/02/2024 8:53 AM CDT us Freddy Yao DO LAB BLOOD ORDERABLES Final Result NEEL SMITH [address] [facility] Department of Laboratories [place], [place] [id number] * (ABNORMAL) Differential, auto (08/02/2024 8:43 AM CDT) Pathologist [facility] Department Neutrophil abs 12.1(H) 1.5 - 6.5 K/cumm Comment:Testing performed by : [address] [address] Imm gran abs 0.1 0.0 - 0.1 K/cumm NEEL SMITH Comment:Testing performed by : [address] [address] Lymphocyte abs 0.9 0.8 - 3.3 K/cumm NEEL SMITH Comment:Testing performed by : [address] [address] Monocyte abs 0.7 0.2 - 0.8 K/cumm [facility] Comment:Testing performed by : [address] [address] Eosinophil abs 0.0 0.0 - 0.5 K/cumm [facility] Comment:Testing performed by : [address] [address] Basophil abs 0.0 0.0 - 0.1 K/cumm [facility] Comment:Testing performed by : [address] [address] Neutrophil pct 88.2 % [facility] Comment: Interpretive Data Percent cell count reference ranges are not reported, since discordance with absolute values may lead to misinterpretation of CBC data. Current Interpretive Data was last revised on 2017. Testing performed by: [address] [address] Imm gran pct 0.4 % [facility] Comment: Interpretive Data Percent cell count reference ranges are not reported, since discordance with absolute values may lead to misinterpretation of CBC data. Current Interpretive Data was last revised on 2017. Testing performed by: [address] [address] Lymphocyte pct 6.6 % [facility] Comment: Interpretive Data Percent cell count reference ranges are not reported, since discordance with absolute values may lead to misinterpretation of CBC data. Current Interpretive Data was last revised on 2017. Testing performed by: [address] [address] Monocyte pct 4.7 % [facility] Comment: Interpretive Data Percent cell count reference ranges are not reported, since discordance with absolute values may lead to misinterpretation of CBC data. Current Interpretive Data was last revised on 2017. Testing performed by: [address] [address] Eosinophil pct 0.0 % [facility] Comment: Interpretive Data Percent cell count reference ranges are not reported, since discordance with absolute values may lead to misinterpretation of CBC data. Current Interpretive Data was last revised on 2017. Testing performed by: [address] [address] Basophil pct 0.1 % NEEL Comment: Interpretive Data Percent cell count reference ranges are not reported, since discordance with absolute values may lead to misinterpretation of CBC data. Current Interpretive Data was last revised on 2017. Testing performed by: [address] [address] Blood 08/02/2024 8:43 AM CDT 08/02/2024 8:53 AM CDT us Freddy Yao DO LAB BLOOD ORDERABLES Final Result NEEL [address] [facility] Department [place] [address] * (ABNORMAL) CBC with auto differential (08/02/2024 8:43 AM CDT) WBC 13.7(H) 3.8 - 9.9 K/cumm Comment:Testing performed by : [address] [address] Hgb 12.9(L) 13.0 - 17.5 g/dL NEEL Comment:Testing performed by : [address] [address] Hct 38.3(L) 38.9 - 50.3 % NEEL Comment:Testing performed by : [address] [address] Plt 310 150 - 400 K/cumm NEEL Comment:Testing performed by : [address] [address] MPV 9.9 9.1 - 12.3 fL NEEL Comment:Testing performed by : [address] [address] RBC 4.63 4.30 - 5.80 M/cumm NEEL SMITH Comment:Testing performed by : [address] [address] MCV 82.7 81.3 - 96.4 fL NEEL Comment:Testing performed by : [address] [address] MCH 27.9 27.1 - 33.3 pg NEEL SMITH Comment:Testing performed by : [address] [address] MCHC 33.7 32.3 - 35.7 g/dL NEEL SMITH Comment:Testing performed by : [address] [address] RDW CV 15.9(H) 11.1 - 14.9 % NEEL SMITH Comment:Testing performed by : [address] [address] RDW SD 48.1 35.7 - 48.1 fL NEEL SMITH Comment:Testing performed by : [address] [address] NRBC abs 0.00 0.00 - 0.01 K/cumm NEEL SMITH Comment:Testing performed by : [address], [address] Blood Venous blood specimen / Unknown 08/02/2024 8:43 AM CDT 08/02/2024 8:53 AM CDT Freddy Yao DO LAB BLOOD ORDERABLES Final Result Performing Organization Address City/[facility]/ZIP Co de Phone Number [address] [place] [address] * Lipase (08/02/2024 8:43 AM CDT) Pathologist [facility] Department Lipase 28 10 - 99 Units/L Comment:Testing performed by : [address] [address] Blood Venous blood specimen / Unknown 08/02/2024 8:43 AM CDT 08/02/2024 8:53 AM CDT Freddy Yao DO LAB BLOOD ORDERABLES Final Result Performing Organization Address City/[facility]/ZIP Co de Phone Number [address] [address] * Comprehensive metabolic panel (08/02/2024 8:43 AM CDT) Sodium 143 135 - 145 mmol/L Comment:Testing performed by : [address] [address] Potassium, pl 3.9 3.3 - 4.9 mmol/L NEEL Comment:Testing performed by : [address], [place]., [address] Chloride 107 97 - 110 mmol/L NEEL Comment:Testing performed by : [address], [place]., [address] CO2 22 22 - 32 mmol/L NEEL Comment:Testing performed by : [address] [address] Anion gap 14 2 - 15 mmol/L NEEL Comment:Testing performed by : [address], [place]., [address] BUN 9 6 - 25 mg/dL NEEL Comment:Testing performed by : [address] [address] Creatinine 0.90 0.80 - 1.30 mg/dL NEEL Comment:Testing performed by : [address] [address] Glucose 161 70 - 199 mg/dL [facility] Comment: Interpretive Data Fasting glucose >/= 126 [...] was last revised 2022. Testing performed by: [address] [address] Calcium 9.0 8.5 - 10.3 mg/dL NEEL Comment:Testing performed by : [address] [address] Bilirubin, total 0.5 0.1 - 1.2 mg/dL NEEL SMITH Comment:Testing performed by : [address] [address] Protein, pl 7.1 6.5 - 8.5 g/dL NEEL SMITH Comment:Testing performed by : [address] [address] Albumin 4.3 3.5 - 5.0 g/dL NEEL Comment:Testing performed by : [address] [address] Alk phos 81 40 - 130 Units/L NEEL Comment:Testing performed by : [address], [place]., [address] ALT 20 7 - 55 Units/L NEEL Comment:Testing performed by : [address] [address] AST 26 10 - 50 Units/L NEEL Comment:Testing performed by : [address] [address] Blood 08/02/2024 8:43 AM CDT 08/02/2024 8:53 AM CDT us Freddy Yao DO LAB BLOOD ORDERABLES Final Result NEEL [address] [facility] Department [place] [address] * Troponin T high-sensitivity 4-hour (06/27/2024 11:44 AM ROBOT PROGRAMMER) Trop T hs <6 <=22 ng/L Comment: Interpretive Data For further hscTnT resources including the diagnostic algorithm and an aid in interpretation, copy and paste this link: https://nrl.testcatalog.org/show/hsTrop Current Interpretive Data last revised 2020. Testing performed by: [address] [address] Trop T hs delta 0 ng/L NEEL Comment:Testing performed by : [address] [address] Trop T hs interp Insignificant NEEL SMITH Comment:Testing performed by : [facility], [address] [place] [address]., [address] Blood 06/27/2024 11:4 4 AM ROBOT PROGRAMMER 06/27/2024 11:47 AM ROBOT PROGRAMMER Bernard Bruce MD LAB BLOOD ORDERABLES Final Resul t Performing Organization Address City/[facility]/ZIP Co de Phone Number NEEL [address] [facility] Department [place] [address] * ECG 12 lead (06/27/2024 9:54 AM ROBOT PROGRAMMER) Pathologist [facility] Ventricular Rate EKG/Min 74 BPM [facility] Atrial Rate 74 BPM [facility] TN-Interval (MSEC) 120 ms [facility] QRS-Interval (MSEC) 100 ms [facility] QT-Interval (MSEC) 394 ms [facility] QTc 437 ms [facility] P [place] 37 degrees [facility] R [place] 12 degrees [facility] T [place] 29 degrees [facility] Diagnosis Normal sinus rhythm Normal ECG When compared with ECG of 19-JUN-2024 19:04, No significant change was found Confirmed by PRINCESS BAE M.D. ([id number]) on 06/28/2024 11:26:58 PM [facility] 06/27/2024 9:54 AM ROBOT PROGRAMMER 06/28/2024 11:26 PM ROBOT PROGRAMMER us Bernard Bruce MD ECG ORDERABLES Final Result Performing Organization Address [facility] Co de Phone Number [facility] * CT Abdomen Pelvis W Contrast (06/27/2024 9:42 AM ROBOT PROGRAMMER) Anatomical Region Laterality Modality Body N/A Computed Tomogra phy 06/27/2024 10:1 8 AM ROBOT PROGRAMMER Narrative 06/27/2024 10:30 AM ROBOT PROGRAMMER EXAM DESCRIPTION: CT ABDOMEN PELVIS W CONTRAST [...] Jake Don M.D. LB: [place] Report ID: [id number] Reading Location: [place] [address] Procedure Note Jake Don MD - 06/27/2024 [...] Jake Don M.D. LB: [place] Report ID: [id number] Reading Location: [place] [address] us Bernard Bruce MD IMG CT PROCEDURES Final Result * Troponin T high-sensitivity series (baseline, 2hr, 4hr, 6hr) (06/27/2024 7:53 AM ROBOT PROGRAMMER) Trop T hs <6 <=22 ng/L Comment: Interpretive Data For further hscTnT resources including the diagnostic algorithm and an aid in interpretation, copy and paste this link: https://nrl.testcatalog.org/show/hsTrop Current Interpretive Data last revised 2020. Testing performed by: [facility], [address] [place] [address]., [address] Blood 06/27/2024 7:53 AM ROBOT PROGRAMMER 06/27/2024 7:55 AM ROBOT PROGRAMMER us Bernard Bruce MD LAB BLOOD ORDERABLES Edited Resu lt - Final [facility] [address] [facility] Department [place] [address] * eGFR (06/27/2024 7:53 AM ROBOT PROGRAMMER) eGFR 85 >=60 mL/min/1. 73 m2 Comment: [...] was last reviewed 2021. Testing performed by: [address] [address] Blood 06/27/2024 7:53 AM ROBOT PROGRAMMER 06/27/2024 7:55 AM ROBOT PROGRAMMER us Bernard Bruce MD LAB BLOOD ORDERABLES Final Resul t NEEL [address] [facility] Department [place] [address] * (ABNORMAL) Differential, auto (06/27/2024 7:53 AM ROBOT PROGRAMMER) Neutrophil abs 5.4 1.5 - 6.5 K/cumm Comment:Testing performed by : [address] [address] Imm gran abs 0.0 0.0 - 0.1 K/cumm NEEL SMITH Comment:Testing performed by : [address] [address] Lymphocyte abs 3.7(H) 0.8 - 3.3 K/cumm NEEL SMITH Comment:Testing performed by : [address], [place]., [address] Monocyte abs 1.7(H) 0.2 - 0.8 K/cumm NEEL Comment:Testing performed by : [address], [place]., [address] Eosinophil abs 0.5 0.0 - 0.5 K/cumm NEEL Comment:Testing performed by : [address], [place]., [address] Basophil abs 0.1 0.0 - 0.1 K/cumm NEEL Comment:Testing performed by : [address] [address] Neutrophil pct 47.6 % [facility] Comment: Interpretive Data Percent cell count reference ranges are not reported, since discordance with absolute values may lead to misinterpretation of CBC data. Current Interpretive Data was last revised on 2017. Testing performed by: [address] [address] Imm gran pct 0.3 % [facility] Comment: Interpretive Data Percent cell count reference ranges are not reported, since discordance with absolute values may lead to misinterpretation of CBC data. Current Interpretive Data was last revised on 2017. Testing performed by: [address] [address] Lymphocyte pct 32.4 % [facility] Comment: Interpretive Data Percent cell count reference ranges are not reported, since discordance with absolute values may lead to misinterpretation of CBC data. Current Interpretive Data was last revised on 2017. Testing performed by: [address] [address] Monocyte pct 14.6 % [facility] Comment: Interpretive Data Percent cell count reference ranges are not reported, since discordance with absolute values may lead to misinterpretation of CBC data. Current Interpretive Data was last revised on 2017. Testing performed by: [address] [address] Eosinophil pct 4.4 % [facility] Comment: Interpretive Data Percent cell count reference ranges are not reported, since discordance with absolute values may lead to misinterpretation of CBC data. Current Interpretive Data was last revised on 2017. Testing performed by: [address] [address] Basophil pct 0.7 % NEEL SMITH Comment: Interpretive Data Percent cell count reference ranges are not reported, since discordance with absolute values may lead to misinterpretation of CBC data. Current Interpretive Data was last revised on 2017. Testing performed by: [address] [address] Blood 06/27/2024 7:5 3 AM ROBOT PROGRAMMER 06/27/2024 7:55 AM ROBOT PROGRAMMER us Bernard Bruce MD LAB BLOOD ORDERABLES Final Resul t NEEL [address] [facility] Department [place] [address] * (ABNORMAL) CBC with auto differential (06/27/2024 7:53 AM ROBOT PROGRAMMER) WBC 11.3(H) 3.8 - 9.9 K/cumm Comment:Testing performed by : [address] [address] Hgb 14.2 13.0 - 17.5 g/dL NEEL SMITH Comment:Testing performed by : [address] [address] Hct 43.1 38.9 - 50.3 % NEEL SMITH Comment:Testing performed by : [address] [address] Plt 301 150 - 400 K/cumm NEEL SMITH Comment:Testing performed by : [address] [address] MPV 10.2 9.1 - 12.3 fL NEEL SMITH Comment:Testing performed by : [address] [address] RBC 5.16 4.30 - 5.80 M/cumm NEEL SMITH Comment:Testing performed by : [address] [address] MCV 83.5 81.3 - 96.4 fL NEEL SMITH Comment:Testing performed by : [address], [address] MCH 27.5 27.1 - 33.3 pg NEEL SMITH Comment:Testing performed by : [address] [address] MCHC 32.9 32.3 - 35.7 g/dL NEEL SMITH Comment:Testing performed by : [address], [address] RDW CV 16.2(H) 11.1 - 14.9 % NEEL Comment:Testing performed by : [address], [address] RDW SD 49.5(H) 35.7 - 48.1 fL NEEL SMITH Comment:Testing performed by : [address], [address] NRBC abs 0.00 0.00 - 0.01 K/cumm NEEL Comment:Testing performed by : [address], [address] Blood Venous blood specimen / Unknown 06/27/2024 7:53 AM ROBOT PROGRAMMER 06/27/2024 7:55 AM ROBOT PROGRAMMER us Bernard Bruce MD LAB BLOOD ORDERABLES Final Resul t Performing Organization Address City/[facility]/ZIP Co de Phone Number [address] Department [place] [address] * (ABNORMAL) Lipase (06/27/2024 7:53 AM ROBOT PROGRAMMER) Lipase 355(H) 10 - 99 Units/L Comment:Testing performed by : [address], [address] Blood Venous blood specimen / Unknown 06/27/2024 7:53 AM ROBOT PROGRAMMER 06/27/2024 7:55 AM ROBOT PROGRAMMER us Bernard Bruce MD LAB BLOOD ORDERABLES Final Resul t [address] Department [place] [address] * Ethanol (06/27/2024 7:53 AM ROBOT PROGRAMMER) Ethanol <10 <=10 mg/dL Comment: Interpretive Data Legal limit of intoxication > or = 80 mg/dL Levels > or = 400 mg/dL are potentially TOXIC. Current interpretive data was last revised on 2018. Testing performed by: [address] [address] Blood 06/27/2024 7:53 AM ROBOT PROGRAMMER 06/27/2024 7:55 AM ROBOT PROGRAMMER us Bernard Bruce MD LAB BLOOD ORDERABLES Final Resul t [facility] [address] [facility] [place] [address] * (ABNORMAL) Comprehensive metabolic panel (06/27/2024 7:53 AM ROBOT PROGRAMMER) Pathologist [facility] Sodium 141 135 - 145 mmol/L Comment:Testing performed by : [address] [address] Potassium, pl 4.5 3.3 - 4.9 mmol/L NEEL Comment:Testing performed by : [address] [address] Chloride 102 97 - 110 mmol/L NEEL Comment:Testing performed by : [address] [address] CO2 25 22 - 32 mmol/L NEEL Comment:Testing performed by : [address] [address] Anion gap 14 2 - 15 mmol/L NEEL Comment:Testing performed by : [address] [address] BUN 15 6 - 25 mg/dL NEEL Comment:Testing performed by : [address] [address] Creatinine 1.10 0.80 - 1.30 mg/dL NEEL Comment:Testing performed by : [address] [address] Glucose 110 70 - 199 mg/dL NEEL [...] was last revised 2022. Testing performed by: [address] [address] Calcium 10.1 8.5 - 10.3 mg/dL NEEL Comment:Testing performed by : [address] [address] Bilirubin, total 0.3 0.1 - 1.2 mg/dL NEEL Comment:Testing performed by : [address] [address] Protein, pl 7.4 6.5 - 8.5 g/dL NEEL Comment:Testing performed by : [address] [address] Albumin 4.5 3.5 - 5.0 g/dL NEEL Comment:Testing performed by : [address] [address] Alk phos 91 40 - 130 Units/L [facility] Comment:Testing performed by : [address] [address] ALT 40 7 - 55 Units/L [facility] Comment:Testing performed by : [address] [address] AST 58(H) 10 - 50 Units/L NEEL Comment:Testing performed by : [address] [address] Blood 06/27/2024 7:53 AM ROBOT PROGRAMMER 06/27/2024 7:55 AM ROBOT PROGRAMMER us Bernard Bruce MD LAB BLOOD ORDERABLES Final Resul t NEEL [address] [facility] Department [place] [address] * (ABNORMAL) Urinalysis reflex to microscopic and culture Urine (06/19/2024 7:06 PM ROBOT PROGRAMMER) Color, ur Yellow Yellow Comment:Testing performed by : [address] [address] Clarity, ur Clear Clear NEEL Comment:Testing performed by : [address] [address] Specific gravity, ur 1.023 1.003 - 1.030 NEEL Comment:Testing performed by : [address] [address] pH, urine 6.0 NEEL Comment: Interpretive Data U rine pH is affected by diet, medications, systemic acid-base disturbances, and renal tubular function. pH may affect urinary stone formation. For example, urine pH below 6.0 may help reduce the tendency for calcium phosphate stones and pH greater than 6.0 may reduce the tendency for uric acid stone formation. Source: [facility] [employer] Current Interpretive Data was last revised on 2017 Testing performed by: [address] [address] Protein, ur ql Trace(A) Negative NEEL Comment:Testing performed by : [address] [address] Glucose, ur ql Negative Negative NEEL Comment:Testing performed by : [address] [address] Ketones, ur 1+(A) Negative NEEL Comment:Testing performed by : [address] [address] Bilirubin, ur Negative Negative NEEL Comment:Testing performed by : [address] [address] Blood, ur Negative Negative NEEL Comment:Testing performed by : [address] [address] Urobilinogen, ur <2.0 <2.0 mg/dL NEEL SMITH Comment:Testing performed by : [facility], [address] [place] [address]., [address] Nitrite, ur Negative Negative NEEL Comment:Testing performed by : [address] [address] Leukocyte esterase, ur Negative Negative NEEL Comment:Testing performed by : [address] [address] UA reflex comment Reflex to microscopic UA will be performed. NEEL Comment:Testing performed by : [address], [place]., [address] Urine 06/19/2024 7:06 PM ROBOT PROGRAMMER 06/19/2024 7:11 PM ROBOT PROGRAMMER us Terri Fuentes MD LAB MICROBIOLOGY - GENER AL ORDERABLES Final Result Performing Organization Address City/State/[facility] Co de Phone Number NEEL [address] [facility] Department of Laboratories [place], [place] [address] * (ABNORMAL) Urinalysis, microscopic only (06/19/2024 7:06 PM ROBOT PROGRAMMER) WBC, ur 0-5 0 - 5 /HPF Comment:Testing performed by : [address] [address] RBC, ur 0-2 0 - 2 /HPF NEEL Comment:Testing performed by : [address] [address] Bacteria, ur Trace(A) NEEL Comment:Testing performed by : [address] [address] Mucous, ur Present(A) NEEL Comment:Testing performed by : [address] [address] Culture Reflex Comment Reflex conditions for urine culture (WBC >10) not met. NEEL SMITH Comment:Testing performed by : [address] [address] Urine 06/19/2024 7:06 PM ROBOT PROGRAMMER 06/19/2024 7:11 PM ROBOT PROGRAMMER Terri Fuentes MD LAB URINE ORDERABLES Fin al Result NEEL [address] [facility] Department [place] [address] * ECG 12 lead (06/19/2024 7:04 PM ROBOT PROGRAMMER) Ventricular Rate EKG/Min 67 BPM [facility] Atrial Rate 67 BPM [facility] TN-Interval (MSEC) 106 ms [facility] QRS-Interval (MSEC) 102 ms [facility] QT-Interval (MSEC) 410 ms [facility] QTc 433 ms [facility] P [place] 28 degrees [facility] R [place] 37 degrees [facility] T [place] 50 degrees [facility] Diagnosis Sinus rhythm with short TN with sinus arrhythmia Within normal limits When compared with ECG of 20-APR-2024 12:58, No significant change Confirmed by SULTAN DE JESUS M.D. ([id number]) on 06/20/2024 1:51:59 PM [facility] 06/19/2024 7:04 PM ROBOT PROGRAMMER 06/20/2024 1:51 PM ROBOT PROGRAMMER Terri Fuentes MD ECG ORDERABLES Final Re sult Performing Organization Address [facility] Co de Phone Number [facility] * Troponin T high-sensitivity series (baseline, 2hr, 4hr, 6hr) (06/19/2024 6:56 PM ROBOT PROGRAMMER) Trop T hs <6 <=22 ng/L Comment: Interpretive Data For further hscTnT resources including the diagnostic algorithm and an aid in interpretation, copy and paste this link: https://nrl.testcatalog.org/show/hsTrop Current Interpretive Data last revised 2020. Testing performed by: [facility], [address] [place] [address]., [address] Blood 06/19/2024 6:56 PM ROBOT PROGRAMMER 06/19/2024 7:03 PM ROBOT PROGRAMMER Terri Fuentes MD LAB BLOOD ORDERABLES Fin al Result Performing Organization Address [facility] Co de Phone Number NEEL [address] [place] [address] * eGFR (06/19/2024 6:56 PM ROBOT PROGRAMMER) eGFR >90 >=60 mL/min/1. 73 m2 Comment: [...] was last reviewed 2021. Testing performed by: [address] [address] Blood 06/19/2024 6:56 PM ROBOT PROGRAMMER 06/19/2024 7:03 PM ROBOT PROGRAMMER Terri Fuentes MD LAB BLOOD ORDERABLES Fin al Result Performing Organization Address [facility] Co de Phone Number NEEL [facility] Department [place] [address] * (ABNORMAL) Differential, auto (06/19/2024 6:56 PM ROBOT PROGRAMMER) Neutrophil abs 17.4(H) 1.5 - 6.5 K/cumm Comment:Testing performed by : [address] [address] Imm gran abs 0.1 0.0 - 0.1 K/cumm NEEL Comment:Testing performed by : [address] [address] Lymphocyte abs 1.2 0.8 - 3.3 K/cumm NEEL Comment:Testing performed by : [address] [address] Monocyte abs 1.1(H) 0.2 - 0.8 K/cumm NEEL Comment:Testing performed by : [address] [address] Eosinophil abs 0.0 0.0 - 0.5 K/cumm [facility] Comment:Testing performed by : [address] [address] Basophil abs 0.1 0.0 - 0.1 K/cumm [facility] Comment:Testing performed by : [address] [address] Neutrophil pct 87.3 % [facility] Comment: Interpretive Data Percent cell count reference ranges are not reported, since discordance with absolute values may lead to misinterpretation of CBC data. Current Interpretive Data was last revised on 2017. Testing performed by: [address] [address] Imm gran pct 0.7 % [facility] Comment: Interpretive Data Percent cell count reference ranges are not reported, since discordance with absolute values may lead to misinterpretation of CBC data. Current Interpretive Data was last revised on 2017. Testing performed by: [address] [address] Lymphocyte pct 6.2 % [facility] Comment: Interpretive Data Percent cell count reference ranges are not reported, since discordance with absolute values may lead to misinterpretation of CBC data. Current Interpretive Data was last revised on 2017. Testing performed by: [address] [address] Monocyte pct 5.5 % [facility] Comment: Interpretive Data Percent cell count reference ranges are not reported, since discordance with absolute values may lead to misinterpretation of CBC data. Current Interpretive Data was last revised on 2017. Testing performed by: [address] [address] Eosinophil pct 0.0 % [facility] SM[facility] Comment: Interpretive Data Percent cell count reference ranges are not reported, since discordance with absolute values may lead to misinterpretation of CBC data. Current Interpretive Data was last revised on 2017. Testing performed by: [address] [address] Basophil pct 0.3 % [facility] SM[facility] Comment: Interpretive Data Percent cell count reference ranges are not reported, since discordance with absolute values may lead to misinterpretation of CBC data. Current Interpretive Data was last revised on 2017. Testing performed by: [address] [address] Blood 06/19/2024 6:56 PM ROBOT PROGRAMMER 06/19/2024 7:03 PM ROBOT PROGRAMMER us Terri Fuentes MD LAB BLOOD ORDERABLES Fin al Result NEEL [address] Department [place] [address] * (ABNORMAL) CBC with auto differential (06/19/2024 6:56 PM ROBOT PROGRAMMER) WBC 20.0(H) 3.8 - 9.9 K/cumm Comment:Testing performed by : [address] [address] Hgb 13.8 13.0 - 17.5 g/dL [facility] SM[facility] Comment:Testing performed by : [address] [address] Hct 41.3 38.9 - 50.3 % [facility] SM[facility] Comment:Testing performed by : [address] [address] Plt 330 150 - 400 K/cumm [facility] SMITH Comment:Testing performed by : [address] [address] MPV 9.8 9.1 - 12.3 fL [facility] SMITH Comment:Testing performed by : [address] [address] RBC 5.02 4.30 - 5.80 M/cumm NEEL Comment:Testing performed by : [address] [address] MCV 82.3 81.3 - 96.4 fL [facility] Comment:Testing performed by : [address] [address] MCH 27.5 27.1 - 33.3 pg NEEL Comment:Testing performed by : [address] [address] MCHC 33.4 32.3 - 35.7 g/dL NEEL Comment:Testing performed by : [address], [address] RDW CV 15.8(H) 11.1 - 14.9 % NEEL Comment:Testing performed by : [address] [address] RDW SD 46.4 35.7 - 48.1 fL [facility]EL Comment:Testing performed by : [address] [address] NRBC abs 0.00 0.00 - 0.01 K/cumm NEEL Comment:Testing performed by : [address] [address] Blood Venous blood specimen / Unknown 06/19/2024 6:56 PM ROBOT PROGRAMMER 06/19/2024 7:03 PM ROBOT PROGRAMMER Terri Fuentes MD LAB BLOOD ORDERABLES Fin al Result [facility] [address] [facility] Department of Laboratories [place], [place] [id number] * Lipase (06/19/2024 6:56 PM ROBOT PROGRAMMER) Lipase 90 10 - 99 Units/L Comment:Testing performed by : [address] [address] Blood Venous blood specimen / Unknown 06/19/2024 6:56 PM ROBOT PROGRAMMER 06/19/2024 7:03 PM ROBOT PROGRAMMER us Terri Fuentes MD LAB BLOOD ORDERABLES Fin al Result NEEL [address] [facility] Department [place] [address] * Comprehensive metabolic panel (06/19/2024 6:56 PM ROBOT PROGRAMMER) Sodium 142 135 - 145 mmol/L Comment:Testing performed by : [address] [address] Potassium, pl 4.2 3.3 - 4.9 mmol/L NEEL Comment:Testing performed by : [address] [address] Chloride 106 97 - 110 mmol/L NEEL Comment:Testing performed by : [address] [address] CO2 22 22 - 32 mmol/L [facility] Comment:Testing performed by : [address] [address] Anion gap 14 2 - 15 mmol/L [facility] Comment:Testing performed by : [address] [address] BUN 15 6 - 25 mg/dL [facility]EL Comment:Testing performed by : [address] [address] Creatinine 0.97 0.80 - 1.30 mg/dL [facility] Comment:Testing performed by : [address] [address] Glucose 144 70 - 199 mg/dL NEEL [...] was last revised 2022. Testing performed by: [address] [address] Calcium 9.9 8.5 - 10.3 mg/dL NEEL Comment:Testing performed by : [address] [address] Bilirubin, total 0.4 0.1 - 1.2 mg/dL [facility] Comment:Testing performed by : [address] [address] Protein, pl 7.4 6.5 - 8.5 g/dL NEEL Comment:Testing performed by : [address], [place]., [address] Albumin 4.5 3.5 - 5.0 g/dL NEEL Comment:Testing performed by : [address] [address] Alk phos 92 40 - 130 Units/L NEEL Comment:Testing performed by : [address] [address] ALT 26 7 - 55 Units/L [facility] Comment:Testing performed by : [address] [address] AST 25 10 - 50 Units/L [facility] Comment:Testing performed by : [address] [address] Blood 06/19/2024 6:56 PM ROBOT PROGRAMMER 06/19/2024 7:03 PM ROBOT PROGRAMMER Terri Fuentes MD LAB BLOOD ORDERABLES Fin al Result NEEL [address] [facility] Department [place] [address] * (ABNORMAL) Drugs of Abuse Screen, Urine without Confirmation (05/20/2024 7:37 PM ROBOT PROGRAMMER) [facility] Amphetamine, ur Not Detected CutOff 500ng/mL Comment: Interpretive Data - Amphetamines: Samples containing greater than 500 ng/mL d-methamphetamine or other cross-reacting amphetamine compounds are reported as positive. Amphetamine immunoassays are subject to significant false positive rates due to cross-reactivity of non-amphetamine drugs. Confirmatory testing required for definitive results. Current Interpretive Data was last reviewed 2022. Barbiturates, ur Not Detected CutOff 200ng/mL [facility] Comment: Interpretive Data - Barbiturates: Samples containing greater than 200 ng/mL secobarbital or other cross-reacting barbiturate compounds are reported as positive. False positive and false negative results are possible. Confirmatory testing required for definitive results. Current Interpretive Data was last reviewed 2022. Benzodiazepines, ur Not Detected CutOff 100ng/mL [facility] Comment: Interpretive Data - Benzodiazepines: Samples containing greater than 100 ng/mL nordiazepam or other cross-reacting compounds are reported as positive. False positive and false negative results are possible. Confirmatory testing required for definitive results. Current Interpretive Data was last reviewed 2022. Cannabinoids, ur Screen Positive, presumptive (A) CutOff 50 ng/mL [facility] Comment: Interpretive Data - Cannabinoids: Samples containing greater than 50 ng/mL delta-9 THC -COOH or other cross- reacting compounds are reported as positive. False positive and false negative results are possible. Confirmatory testing required for definitive results. Current Interpretive Data was last reviewed 2022. Cocaine, ur Not Detected CutOff 150ng/mL [facility] Comment: Interpretive Data - Cocaine: Samples containing greater than 150 ng/mL benzoylecgonine or other cross- reacting compounds are reported as positive. False positive and false negative results are possible. Confirmatory testing required for definitive results. Current Interpretive Data was last reviewed 2022. Fentanyl, Ur Not Detected CutOff 5 ng/mL [facility] Comment: Interpretive Data - Fentanyl: Samples containing greater than 5 ng/mL norfentanyl, fentanyl, or other cross-reacting fentanyl compounds are reported as positive. False positive and false negative results are possible. Confirmatory testing required for definitive results. Current Interpretive Data was last reviewed 2023. Methadone, ur Not Detected CutOff 300ng/mL [facility] Comment: Interpretive Data - Methadone: Samples containing greater than 300 ng/mL d,l-methadone or other cross-reacting compounds are reported as positive. False positive and false negative results are possible. Confirmatory testing required for definitive results. Current Interpretive Data was last reviewed 2022. Opiates, ur Not Detected CutOff 300ng/mL [facility] Comment: Interpretive Data - Opiates: Samples containing [...] Phencyclidine, ur Not Detected CutOff 25 ng/mL [facility] Comment: Interpretive Data - Phencyclidine: Samples containing [...] revised on 2017. Urine 05/20/2024 7:37 PM ROBOT PROGRAMMER 05/20/2024 7:40 PM ROBOT PROGRAMMER Narrative [facility] - 05/20/2024 8:04 PM ROBOT PROGRAMMER Drug of Abuse screening is performed by immunoassay for medical purposes only. This is not to be used for Pain Management purposes. Kelly LAWTON LAB URINE ORDERABLES F inal Result [facility] [address] [facility] Department [place] [address] * CT Abdomen Pelvis W Contrast (05/20/2024 5:56 PM ROBOT PROGRAMMER) Anatomical Region Laterality Modality Body N/A Computed Tomogra phy 05/20/2024 6:54 PM ROBOT PROGRAMMER Narrative 05/20/2024 7:00 PM ROBOT PROGRAMMER EXAM DESCRIPTION: CT ABDOMEN PELVIS W CONTRAST REASON FOR STUDY: Abdominal pain, acute, nonlocalized Pt c/o abdominal pain [id number] with NV. Hx: cholecystectomy TECHNIQUE: CT scan [...] Francisco Jesus M.D. KT T: Report ID: [id number] Reading Location: [id number] Procedure Note Jose Francisco Jesus MD - 05/20/2024 EXAM DESCRIPTION: CT ABDOMEN PELVIS W CONTRAST REASON FOR STUDY: Abdominal pain, acute, nonlocalized Pt c/o abdominal pain [id number] with NV. Hx: cholecystectomy TECHNIQUE: CT scan [...] Francisco Jesus M.D. KT T: Report ID: [id number] Reading Location: [id number] Kelly LAWTON IMG CT PROCEDURES Renee l Result * Sepsis Lactate w/ Reflex (05/20/2024 5:16 PM ROBOT PROGRAMMER) Pathologist [facility] Sepsis Lactate 1.5 0.7 - 2.0 mmol/L Blood 05/20/2024 5:16 PM ROBOT PROGRAMMER 05/20/2024 5:18 PM ROBOT PROGRAMMER Kelly LAWTON LAB BLOOD ORDERABLES F inal Result NEEL VW [address] [facility] Department [place] [address] * eGFR (05/20/2024 4:03 PM ROBOT PROGRAMMER) Pathologist [facility] eGFR >90 >=60 mL/min/1. 73 m2 Comment: [...] last reviewed 2021. Blood 05/20/2024 4:03 PM ROBOT PROGRAMMER 05/20/2024 4:07 PM ROBOT PROGRAMMER Freddy Bell MD LAB BLOOD ORDERABLES Final Result [facility] [address] [facility] Department [place] [address] * (ABNORMAL) Differential, auto (05/20/2024 4:03 PM ROBOT PROGRAMMER) Pathologist [facility] Neutrophil abs 15.0(H) 1.5 - 6.5 K/cumm Imm gran abs 0.1 0.0 - 0.1 K/cumm [facility] Lymphocyte abs 3.1 0.8 - 3.3 K/cumm [facility] Monocyte abs 1.6(H) 0.2 - 0.8 K/cumm [facility] Eosinophil abs 0.2 0.0 - 0.5 K/cumm [facility] Basophil abs 0.1 0.0 - 0.1 K/cumm [facility] Neutrophil pct 74.9 % [facility] Comment: Interpretive Data Percent cell count reference ranges are not reported, since discordance with absolute values may lead to misinterpretation of CBC data. Current Interpretive Data was last revised on 2017. Imm gran pct 0.5 % [facility] Comment: Interpretive Data Percent cell count reference ranges are not reported, since discordance with absolute values may lead to misinterpretation of CBC data. Current Interpretive Data was last revised on 2017. Lymphocyte pct 15.3 % [facility] Comment: Interpretive Data Percent cell count reference ranges are not reported, since discordance with absolute values may lead to misinterpretation of CBC data. Current Interpretive Data was last revised on 2017. Monocyte pct 7.8 % [facility] Comment: Interpretive Data Percent cell count reference ranges are not reported, since discordance with absolute values may lead to misinterpretation of CBC data. Current Interpretive Data was last revised on 2017. Eosinophil pct 1.1 % [facility] Comment: Interpretive Data Percent cell count reference ranges are not reported, since discordance with absolute values may lead to misinterpretation of CBC data. Current Interpretive Data was last revised on 2017. Basophil pct 0.4 % [facility] Comment: Interpretive Data Percent cell count reference ranges are not reported, since discordance with absolute values may lead to misinterpretation of CBC data. Current Interpretive Data was last revised on 2017. Blood 05/20/2024 4:03 PM ROBOT PROGRAMMER 05/20/2024 4:07 PM ROBOT PROGRAMMER us Freddy Bell MD LAB BLOOD ORDERABLES Final Result [facility] [address] [facility] Department [place] [address] * (ABNORMAL) Urinalysis reflex to microscopic and culture Urine (05/20/2024 4:03 PM ROBOT PROGRAMMER) Color, ur Yellow Yellow Clarity, ur Cloudy(A) Clear [facility] Specific gravity, ur 1.021 1.003 - 1.030 [facility] pH, urine 6.5 [facility] Comment: Interpretive Data U rine pH is affected by diet, medications, systemic acid-base disturbances, and renal tubular function. pH may affect urinary stone formation. For example, urine pH below 6.0 may help reduce the tendency for calcium phosphate stones and pH greater than 6.0 may reduce the tendency for uric acid stone formation. Source: [facility] [employer] Current Interpretive Data was last revised on 2017 Protein, ur ql Negative Negative [facility] Glucose, ur ql Negative Negative [facility] Ketones, ur Negative Negative [facility] Bilirubin, ur Negative Negative [facility] Blood, ur Negative Negative [facility] Urobilinogen, ur <2.0 <2.0 mg/dL [facility] Nitrite, ur Negative Negative [facility] Leukocyte esterase, ur Negative Negative [facility] UA reflex comment Reflex conditions for microscopic UA and culture not met. [facility] Urine 05/20/2024 4:03 PM ROBOT PROGRAMMER 05/20/2024 4:07 PM ROBOT PROGRAMMER Freddy Bell MD LAB MICROBIOLOGY - GENERAL ORDERABLES Final Result Performing Organization Address City/[facility] Co de Phone Number [facility] [address] [facility] Department [place] [address] * (ABNORMAL) CBC with auto differential (05/20/2024 4:03 PM ROBOT PROGRAMMER) WBC 20.1(H) 3.8 - 9.9 K/cumm Hgb 14.2 13.0 - 17.5 g/dL [facility] Hct 43.4 38.9 - 50.3 % [facility] Plt 327 150 - 400 K/cumm [facility] MPV 9.9 9.1 - 12.3 fL [facility] RBC 5.20 4.30 - 5.80 M/cumm [facility] MCV 83.5 81.3 - 96.4 fL [facility] MCH 27.3 27.1 - 33.3 pg [facility] MCHC 32.7 32.3 - 35.7 g/dL [facility] RDW CV 15.9(H) 11.1 - 14.9 % [facility] RDW SD 47.5 35.7 - 48.1 fL [facility] NRBC abs 0.00 0.00 - 0.01 K/cumm [facility] Blood Venous blood specimen / Unknown 05/20/2024 4:03 PM ROBOT PROGRAMMER 05/20/2024 4:07 PM ROBOT PROGRAMMER Freddy Bell MD LAB BLOOD ORDERABLES Final Result [place] [id number] [facility] [place] [address] * Lipase (05/20/2024 4:03 PM ROBOT PROGRAMMER) [facility] Lipase 34 10 - 99 Units/L Blood Venous blood specimen / Unknown 05/20/2024 4:03 PM ROBOT PROGRAMMER 05/20/2024 4:07 PM ROBOT PROGRAMMER Freddy Bell MD LAB BLOOD ORDERABLES Final Result Performing Organization Address [facility] Co de Phone Number [place] [id number] [place] [address] * Comprehensive metabolic panel (05/20/2024 4:03 PM ROBOT PROGRAMMER) [facility] Sodium 142 135 - 145 mmol/L Potassium, pl 3.6 3.3 - 4.9 mmol/L [facility] Chloride 105 97 - 110 mmol/L [facility] CO2 24 22 - 32 mmol/L [facility] Anion gap 13 2 - 15 mmol/L [facility] BUN 12 6 - 25 mg/dL [facility] Creatinine 1.00 0.80 - 1.30 mg/dL [facility] Glucose 101 70 - 199 mg/dL [facility] Comment: Interpretive Data Fasting glucose >/= 126 [...] 2022. Calcium 10.1 8.5 - 10.3 mg/dL [facility] Bilirubin, total 0.3 0.1 - 1.2 mg/dL [facility] Protein, pl 7.3 6.5 - 8.5 g/dL [facility] Albumin 4.5 3.5 - 5.0 g/dL [facility] Alk phos 97 40 - 130 Units/L [facility] ALT 22 7 - 55 Units/L [facility] AST 24 10 - 50 Units/L [facility] Blood 05/20/2024 4:03 PM ROBOT PROGRAMMER 05/20/2024 4:07 PM ROBOT PROGRAMMER us Freddy Bell MD LAB BLOOD ORDERABLES Final Result [facility] [address] [facility] Department [place] [address] from Last 3 Months Insurance [facility] [place] [address] [facility] Advance Directives For more information, please contact: [phone] * Full Code (Latest Code Status on [...] 11:23 AM 02/10/2022 10:36 PM Care Teams Contract Admin Relationship Specialty Start Date End Date Td Lopez MD [facility] [address] PCP - General Family Medicine 11/09/20 Angie Woodard MD [facility] [place] [address] Consulting Physician Gastroenterology 07/17/21 Vimal Woodruff MD [address] [place] [address] Consulting Physician Gastroenterology 02/10/22
--- OUTSIDE RECORDS SUMMARY | 2024-08-05 18:05 | XMS_ITS ---
Author Organization [facility] Address [address] [place] [address] Care Team Providers Care Radiology Practitioner Assistant Name Role Phone John TUCKER, Td Primary Care Provider Tucker FIGUEROA NP, MELISSA Porras [phone] REASON FOR VISIT FU ER Visit Encounters Encounter Location Date Provider Diagnosis [facility] [address] [place] [address] 02/29/2024 MELISSA FIGUEROA PLAN OF TREATMENT No Information Progress Notes * KEVIN Donovan MDOB: 2 (44 yo M)Acc No.[id number]:02/29/2024 Progress Notes Patient: Donovan BROWN Appointment Provider: Melissa Figueroa CNP :1980 Age:43 Y Sex:Male Date:02/29/2024 [facility] [facility] Pcp:Td Lopez MD Subjective: * Chief Complaints: * 1. FU ER Visit. * Medical History: Objective: Assessment: Plan: * Treatment: * Images: * Sign off status: Pending * Appointment Provider: Melissa Figueroa CNP Date: 02/29/2024
[2024-08-05 18:12] VITALS: BP 188/119; PULSE 65; RESP 20; TEMP 36.9; O2SAT 100
[2024-08-05 20:46] VITALS: BP 141/102; PULSE 72; RESP 18; O2SAT 98
[2024-08-05 20:49] VITALS: BP 141/102; PULSE 82; RESP 18; O2SAT 100
--- NOTE | 2024-08-05 20:51 | ED_ITS ---
HPI - Abdominal Pain General Chief Complaint: Abdominal Pain <Donovan Estes MD - Last Filed: 08/06/24 10:07> Stated Complaint: abdominal <Donovan Estes MD - Last Filed: 08/06/24 10:07> Time Seen by Provider: 08/05/24 20:27 <Donovan Estes MD - Last Filed: 08/06/24 10:07> History of Present Illness HPI narrative: 44-year-old male with history of chronic abdominal pain, chronic pancreatitis, cyclic vomiting syndrome. He presents to the emergency department today with nausea, vomiting, epigastric pain that feels very similar to his usual epigastric abdominal pain from pancreatitis. Reports no recent drinking. Was seen at other facility 1 week prior according to him and diagnosed with ?inflammation? and sent home after treatments from the ED. patient denies any new injury or illnesses. No fever, chills, back pain, chest pain, shortness a breath. No urinary complaints such as hematuria or dysuria. No history of kidney stones. States that he needs Phenergan, fentanyl or Dilaudid for symptom control. <Donovan Estes MD - Last Filed: 08/06/24 10:07> Related Data Home Medications: Home Medications ?Medication ?Instructions ?Recorded ?Confirmed ?Last Taken ?Type apixaban 5 mg tablet (Eliquis) 5 mg PO BID 04/05/23 04/05/23 Unknown History dicyclomine 20 mg tablet 20 mg PO BID 04/05/23 04/05/23 Unknown History <Donovan Estes MD - Last Filed: 08/06/24 10:07> Allergies/Adverse Reactions: Allergies Allergy/AdvReac Type Severity Reaction Status Date / Time metoclopramide Allergy Unknown Muscle Verified 08/05/24 20:50 Spasms haloperidol (From Haldol) AdvReac Mild Muscle Verified 08/05/24 20:50 Spasms doxycycline AdvReac Unknown Gastrointestinal Verified 08/05/24 20:50 Upset sulfamethoxazole AdvReac Unknown Gastrointestinal Verified 08/05/24 20:50 Upset trimethoprim AdvReac Unknown Gastrointestinal Verified 08/05/24 20:50 Upset prochlorperazine (From AdvReac Muscle Verified 08/05/24 20:50 Compazine) Spasms Sulfa (Sulfonamide AdvReac Gastrointestinal Verified 08/05/24 20:50 Antibiotics) Upset <Donovan Estes MD - Last Filed: 08/06/24 10:07> Review of Systems 2 Review of Systems: As reviewed above in HPI <Donovan Estes MD - Last Filed: 08/06/24 10:07> [facility] Past Medical History Medical History: Medical History Kidney infarction Chronic pancreatitis Cyclical vomiting Anxiety Depression Kidney stones Hypertension GERD (gastroesophageal reflux disease) Cyclic vomiting syndrome IBD (inflammatory bowel disease) Gastroenteritis Pancreatitis Colitis <Donovan Estes MD - Last Filed: 08/06/24 10:07> Surgical History Surgical History: Surgical History Hx of cholecystectomy <Donovan Estes MD - Last Filed: 08/06/24 10:07> Family History Family History: Family History Grandparent Acute myocardial infarction <Donovan Estes MD - Last Filed: 08/06/24 10:07> Social History Social History: Social History Smoking packs per day: 1 Smoking cigarettes per day: 20.0 Years smoked: 20 Smoking pack-years: 20.00 Smoking status: Current every day smoker Tobacco type: cigarettes Alcohol intake: current Drinks per week: 3 Substance use: current Substance use type: marijuana Last use: PROBABLY ABOUT A WEEK AGOago Lack of Transportation: No Lack of Food: Never True Current Housing: I Have Housing Concerned About Future Housing: No Difficulty Paying Gas/Electric Bills: No Difficulty Paying for Meds: No Currently Unemployed: No Education: High School Diploma/GED Difficulty w/ Childcare or Family Care: No Living arrangements: alone Gender identity (if verbalized by the patient): Male Sexual Orientation (if Verbalized by the Patient): Straight or Heterosexual Spiritual care concerns: No <Donovan Estes MD - Last Filed: 08/06/24 10:07> Exam 2 Narrative: GENERAL: Overall well-appearing, uncomfortable but not any acute distress, asking for narcotic pain medication. HEAD: [Normocephalic, atraumatic.] EYES: [PERRLA and EOMI.] ENT: Nares clear, no rhinorrhea or epistaxis. Mucous membranes moist. NECK: Supple. CHEST: [Clear to auscultation. No respiratory distress.] HEART: [Regular rate and rhythm]. No murmur heard. [Normal peripheral pulses.] ABDOMEN: [Soft, nondistended], slight tenderness to palpation in the epigastrium, [No rigidity or guarding] no overlying skin discoloration. No CVA tenderness. EXTREMITIES: Normal range of motion. [No edema.] SKIN: Warm, dry, no rash. NEURO: [No focal deficits]. Alert and oriented [x3.] PSYCH: [Normal mood and affect.] <Donovan Estes MD - Last Filed: 08/06/24 10:07> Course Course Emergency Course: HALINA 2330: Patient signed pending completion was imaging. CT abdomen pelvis was unremarkable outside of some chronic pneumobilia. Patient is re- evaluated requested the same medications he received earlier. He was informed he would not receive anymore opiods. He was given Toradol, Pepcid, and Zofran. Patient discharged. He has an appointment with his GI doctor next week. Patient given return precautions. <Yuval Gonzales MD - Last Filed: 08/05/24 23:33> Vital Signs Vital signs: Vital Signs Temperature 36.9 C 08/05/24 18:12 Pulse Rate 65 08/05/24 18:12 Respiratory Rate 20 08/05/24 18:12 Blood Pressure 188/119 H 08/05/24 18:12 Pulse Oximetry 100 08/05/24 18:12 Oxygen Delivery Room Air 08/05/24 18:12 Temperature 36.9 C 08/05/24 18:12 Pulse Rate 90 08/06/24 00:01 Respiratory Rate 16 08/06/24 00:01 Blood Pressure 117/82 08/06/24 00:01 Pulse Oximetry 98 08/06/24 00:01 Oxygen Delivery Room Air 08/05/24 18:12 <Donovan Estes MD - Last Filed: 08/06/24 10:07> Vital Signs Temperature 36.9 C 08/05/24 18:12 Pulse Rate 65 08/05/24 18:12 Respiratory Rate 20 08/05/24 18:12 Blood Pressure 188/119 H 08/05/24 18:12 Pulse Oximetry 100 08/05/24 18:12 Oxygen Delivery Room Air 08/05/24 18:12 Temperature 36.9 C 08/05/24 18:12 Pulse Rate 90 08/06/24 00:01 Respiratory Rate 16 08/06/24 00:01 Blood Pressure 117/82 08/06/24 00:01 Pulse Oximetry 98 08/06/24 00:01 Oxygen Delivery Room Air 08/05/24 18:12 <Yuval Gonzales MD - Last Filed: 08/05/24 23:33> MDM - Abdominal Pain MDM Narrative Medical decision making narrative: 44-year-old male with a history of chronic abdominal pain, chronic pancreatitis, cyclic vomiting syndrome. He is well known to this facility and presents very similar each time. He is requesting medications with Phenergan, Dilaudid or fentanyl for symptom control. Was at another facility a week ago with similar complaints and discharged home. He has a slightly tender abdomen but no overlying skin changes or discoloration. Has not had any retching or vomiting while here in the emergency department. Endorses several days of worsening nausea vomiting and diarrhea. Vital signs are reassuring, no significant blood pressure elevations, tachycardia, fever or hypoxia. Suspicion presently is for gastritis, gastroenteritis, acute exacerbation of chronic abdominal pain, cyclic vomiting, acute on chronic pancreatitis, drug-seeking behavior, malingering. Given patient has not been at this facility for several months will re-evaluate him with laboratory studies and CT images. He was given Phenergan, Dilaudid and a fluid bolus. <Donovan Estes MD - Last Filed: 08/06/24 10:07> Medical Records Attestation: I reviewed the patient's medical records. <Donovan Estes MD - Last Filed: 08/06/24 10:07> Lab Data Attestation: I reviewed the patient's lab results. <Donovan Estes MD - Last Filed: 08/06/24 10:07> Result diagrams: 08/05/24 20:47 08/05/24 20:47 <Donovan Estes MD - Last Filed: 08/06/24 10:07> Labs: Lab Results 08/05/24 Range/Units 20:47 WBC 11.8 H (4.5-10.0) K/mm3 RBC 4.86 (4.6-6.20) M/mm3 Hgb 13.7 L (14.0-18.0) g/dL Hct 40.5 L (42.0-52.0) % MCV 83.3 (80-100) fl MCH 28.2 (26-34) pg MCHC 33.8 (32-36) g/dl RDW 16.1 H (11.5-14.5) % Plt Count 301 (150-375) k/mm3 MPV 9.5 (7.4-10.4) fl Immature Gran % (Auto) 0.5 (0-0.5) % Neut % (Auto) 85.9 H (45.5-73.1) % Lymph % (Auto) 8.1 L (18.3-44.2) % Karnes % (Auto) 5.2 (2.6-8.5) % Eos % (Auto) 0.0 (0-4.4) % Baso % (Auto) 0.3 (0.2-1.2) % Lymph # (Auto) 0.96 (0.9-3.2) K/mm3 Karnes # (Auto) 0.6 (0.1-0.6) K/mm3 Eos # (Auto) 0.0 (0-0.3) K/mm3 Baso # (Auto) 0.0 (0.0-0.1) K/mm3 Abs Immat Gran (auto) 0.06 H (0.00-0.031) K/mm3 Absolute Neuts (auto) 10.2 H (1.3-6.7) K/mm3 Absolute Nucleated RBC 0.000 (0.0-0.012) K/mm3 Nucleated RBC % 0.0 (0.0-0.2) % Sodium 139 (137-145) mmol/L Potassium 4.1 (3.4-5.0) mmol/L Chloride 103 (98-107) mmol/L Carbon Dioxide 23 (22-30) mmol/L Anion Gap 13 H (4-12) mmol/L BUN 10 (9-20) mg/dL Creatinine 0.94 (0.7-1.3) mg/dL Estim Creat Clear Calc 92 ml/min Estimated GFR > 60 (59 - ) Glucose 119 H (65-110) mg/dL Calcium 9.6 (8.4-10.2) mg/dL Total Bilirubin 0.7 (0.2-1.3) mg/dL AST 29 (17-59) U/L ALT 28 (6-50) U/L Alkaline Phosphatase 88 (38-126) U/L Total Protein 7.0 (6.3-8.2) g/dL Albumin 4.6 (3.5-5.1) g/dL Lipase 45 (23-300) U/L <Donovan Estes MD - Last Filed: 08/06/24 10:07> Lab Results 08/05/24 Range/Units 20:47 WBC 11.8 H (4.5-10.0) K/mm3 RBC 4.86 (4.6-6.20) M/mm3 Hgb 13.7 L (14.0-18.0) g/dL Hct 40.5 L (42.0-52.0) % MCV 83.3 (80-100) fl MCH 28.2 (26-34) pg MCHC 33.8 (32-36) g/dl RDW 16.1 H (11.5-14.5) % Plt Count 301 (150-375) k/mm3 MPV 9.5 (7.4-10.4) fl Immature Gran % (Auto) 0.5 (0-0.5) % Neut % (Auto) 85.9 H (45.5-73.1) % Lymph % (Auto) 8.1 L (18.3-44.2) % Karnes % (Auto) 5.2 (2.6-8.5) % Eos % (Auto) 0.0 (0-4.4) % Baso % (Auto) 0.3 (0.2-1.2) % Lymph # (Auto) 0.96 (0.9-3.2) K/mm3 Karnes # (Auto) 0.6 (0.1-0.6) K/mm3 Eos # (Auto) 0.0 (0-0.3) K/mm3 Baso # (Auto) 0.0 (0.0-0.1) K/mm3 Abs Immat Gran (auto) 0.06 H (0.00-0.031) K/mm3 Absolute Neuts (auto) 10.2 H (1.3-6.7) K/mm3 Absolute Nucleated RBC 0.000 (0.0-0.012) K/mm3 Nucleated RBC % 0.0 (0.0-0.2) % Sodium 139 (137-145) mmol/L Potassium 4.1 (3.4-5.0) mmol/L Chloride 103 (98-107) mmol/L Carbon Dioxide 23 (22-30) mmol/L Anion Gap 13 H (4-12) mmol/L BUN 10 (9-20) mg/dL Creatinine 0.94 (0.7-1.3) mg/dL Estim Creat Clear Calc 92 ml/min Estimated GFR > 60 (59 - ) Glucose 119 H (65-110) mg/dL Calcium 9.6 (8.4-10.2) mg/dL Total Bilirubin 0.7 (0.2-1.3) mg/dL AST 29 (17-59) U/L ALT 28 (6-50) U/L Alkaline Phosphatase 88 (38-126) U/L Total Protein 7.0 (6.3-8.2) g/dL Albumin 4.6 (3.5-5.1) g/dL Lipase 45 (23-300) U/L <Yuval Gonzales MD - Last Filed: 08/05/24 23:33> Imaging Data Radiologist's impression: ITS Impressions Abdomen/Pelvis CT 08/05/24 22:47 IMPRESSION: 1. No evidence of appendicitis, diverticulitis or intestinal obstruction. 2. Slightly thickened wall of the urinary bladder which may indicate cystitis. Clinical correlation advised. 3. Pneumobilia. <Donovan Estes MD - Last Filed: 08/06/24 10:07> ITS Impressions Abdomen/Pelvis CT 08/05/24 22:47 IMPRESSION: 1. No evidence of appendicitis, diverticulitis or intestinal obstruction. 2. Slightly thickened wall of the urinary bladder which may indicate cystitis. Clinical correlation advised. 3. Pneumobilia. <Yuval Gonzales MD - Last Filed: 08/05/24 23:33> Discharge Plan Discharge Clinical Impression: Abdominal pain, chronic, epigastric, Cyclical vomiting, Chronic pancreatitis <Donovan Estes MD - Last Filed: 08/06/24 10:07> Patient Disposition: Home, Self-Care <Donovan Estes MD - Last Filed: 08/06/24 10:07> Condition: Stable <Donovan Estes MD - Last Filed: 08/06/24 10:07> Instructions: Antibiotic Form, Abdominal Pain (ED) <Donovan Estes MD - Last Filed: 08/06/24 10:07> Patient Language: Yi <Donovan Estes MD - Last Filed: 08/06/24 10:07> Prescriptions: New dicyclomine 20 mg tablet 20 mg PO TID PRN (Reason: abdominal pain) Qty: 20 0RF No Action omeprazole 20 mg capsule,delayed release(DR/EC) 20 mg PO DAILY Qty: 14 0RF ondansetron 4 mg tablet,disintegrating 4 mg PO Q8H PRN (Reason: nausea and vomiting) Qty: 14 0RF dicyclomine 20 mg tablet 20 mg PO QID Qty: 20 0RF promethazine 25 mg tablet 25 mg PO Q6H PRN (Reason: nausea and vomiting) Qty: 20 0RF ondansetron 4 mg tablet,disintegrating 4 mg PO Q8H PRN (Reason: nausea and vomiting) Qty: 10 0RF hyoscyamine sulfate [Levsin] 0.125 mg tablet 0.125 mg PO QID Qty: 14 0RF ondansetron 4 mg tablet,disintegrating 4 mg PO Q6H PRN (Reason: nausea and vomiting) Qty: 10 0RF alum-mag hydroxide-simeth [Maalox Advanced] 200-200-20 mg/5 mL suspension 10 ml PO QID PRN (Reason: dyspepsia) Qty: 300 0RF Rx Instructions: administer between meals and at bedtime ondansetron 4 mg tablet,disintegrating 4 mg PO Q8H PRN (Reason: nausea and vomiting) Qty: 10 0RF dicyclomine 20 mg Tablet 20 mg PO BID Patient Comments: HAVE NOT HAD A DOSE. UNABLE TO OBTAIN FROM HIS PHARMACY Eliquis 5 mg Tablet 5 mg PO BID dicyclomine 20 mg tablet 20 mg PO BID Qty: 30 0RF famotidine [Pepcid] 20 mg tablet 20 mg PO BID 42 Days Qty: 84 0RF ondansetron 4 mg tablet,disintegrating 4 mg PO Q8H PRN (Reason: nausea and vomiting) Qty: 10 0RF <Donovan Estes MD - Last Filed: 08/06/24 10:07> Follow-up/Referrals: John,Td Lewis MD [Primary Care Provider] - <Donovan Estes MD - Last Filed: 08/06/24 10:07>
--- NOTE | 2024-08-05 20:51 | PC.NURSE ---
this rn updated patient home medications.
[2024-08-05 20:55] LABS: Basophils Percent Auto 0.3 % (0.2-1.2); Hematocrit 40.5 % (42.0-52.0); Hemoglobin 13.7 g/dL (14.0-18.0); Immature Granulocyte Absolute 0.06 K/mm3 (0.00-0.031); Immature Granulocyte Percent A 0.5 % (0-0.5); Lymphocytes Absolute Auto 0.96 K/mm3 (0.9-3.2); Lymphocytes Percent Auto 8.1 % (18.3-44.2); Mean Corpuscular HGB Conc 33.8 g/dl (32-36); Mean Corpuscular Hemoglobin 28.2 pg (26-34); Mean Corpuscular Volume 83.3 fl (80-100); Mean Platelet Volume 9.5 fl (7.4-10.4); Monocytes Absolute Auto 0.6 K/mm3 (0.1-0.6); Monocytes Percent Auto 5.2 % (2.6-8.5); Neutrophils Absolute Auto 10.2 K/mm3 (1.3-6.7); Neutrophils Percent Auto 85.9 % (45.5-73.1); Platelet Count Result 301 k/mm3 (150-375); Red Blood Count 4.86 M/mm3 (4.6-6.20); Red Cell Distribution Width 16.1 % (11.5-14.5); White Blood Count 11.8 K/mm3 (4.5-10.0)
--- OUTSIDE RECORDS SUMMARY | 2024-08-05 20:57 | XMS_ITS | Referral Summary ---
Author Organization [facility] Address [address] [place] [address] Care Team Providers Care Associate Professor Of Media Arts Name Role Phone Td Lopez MD Primary Care Provider + Angie Woodard MD Unavailable [phone] Vimal Woodruff MD Unavailable Encounters Date Type Department Care Team Description 08/04/2024 [facility] [address] [address] Alannah Baumann MA 08/03/2024 [facility] [address] [address] Alannah Baumann MA 08/03/2024 2:13 PM CDT - 08/03/2024 3:27 PM CDT Emergency [facility] Emergency Department [address] [place] [address] Freddy Yao DO Chronic abdominal pain (Primary Dx); Drug-seeking behavior Discharge Disposition: Discharge to home or self care 08/02/2024 8:48 AM CDT - 08/02/2024 10:46 AM CDT Emergency [facility] Emergency Department [address] [place] [address] Chronic abdominal pain (Primary Dx) Discharge Disposition: Discharge to home or self care 07/01/2024 [facility] Outreach [address] [address] Alannah Baumann MA 06/30/2024 [facility] [address] [address] Alannah Baumann MA 06/29/2024 [facility] Outreach [address] [address] Alannah Baumann MA 06/27/2024 9:01 AM COPING MACHINE ASSEMBLER - 06/27/2024 12:15 PM [facility] Emergency Department [address] [place] [address] Bernard Bruce MD Chronic pancreatitis, unspecified pancreatitis type (HCC) (Primary Dx) Discharge Disposition: Discharge to home or self care 06/19/2024 7:49 PM COPING MACHINE ASSEMBLER - 06/19/2024 11:01 PM [facility] Emergency Department [address] [place] [address] Terri Fuentes MD Chronic abdominal pain (Primary Dx); Nausea and vomiting, unspecified vomiting type; Leukocytosis, unspecified type Discharge Disposition: Discharge to home or self care 05/30/2024 [facility] Medical Office Bldg 1 OP Physical Therapy [address] [place] [address] Clem Traylor, OIL SPOT WASHER No Show 05/26/2024 7:15 AM [facility] Medical Office Bldg 1 OP Physical Therapy [address] [place] [address] Nelda Perez, PT Neck pain (Primary Dx) 05/26/2024 7:00 AM [facility] Medical Office Bldg 1 OP Physical Therapy [address] [place] [address] Yuliya Fernández PTA Neck pain (Primary Dx) 05/20/2024 4:35 PM COPING MACHINE ASSEMBLER - 05/20/2024 9:[address] [address] Abdominal pain (Primary Dx) Discharge Disposition: Discharge to home or self care 05/19/2024 12:45 PM COPING MACHINE ASSEMBLER Therapy [facility] Medical Office Bl 1 OP Physical Therapy [address] [place] [address] [place] [address] Clem Traylor, OIL SPOT WASHER Neck pain (Primary Dx) 05/12/2024 7:45 AM COPING MACHINE ASSEMBLER Therapy [facility] Medical Office Bl 1 OP Physical Therapy [address] [place] [address] [place] [address] Clem Traylor, OIL SPOT WASHER Neck pain (Primary Dx) from Last 3 [...] 03/25/2024 Assessment & Plan (03/25/2024 11:50 AM COPING MACHINE ASSEMBLER): - suspect just muscle strain - will check xray - offered PT but pt refused. Acute pancreatitis without i nfection or necrosis, unspecified pancreatitis type 11/15/2023 Protein-calorie malnutrition, moderate Abdominal pain, generalized 09/19/2023 Assessment & Plan (09/25/2023 12:23 PM CDT): - improving - will give small amount of norco until pt heals from his procedure - f/u with GI Current use of watermelon inspector anticoagulation 023 Assessment & Plan (09/25/2023 12:23 PM CDT): - stable - continue eliquis Assessment & Plan (03/20/2023 11:08 AM COPING MACHINE ASSEMBLER): - restart eliquis due to life long need for anticoagulation History of thrombosis 03/20/2023 Assessment & Plan (09/25/2023 12:22 PM CDT): - stable - continue eliquis Assessment & Plan (03/20/2023 11:08 AM COPING MACHINE ASSEMBLER): - restart eliquis due to life long [...] famotidine Assessment & Plan (03/20/2023 11:08 AM COPING MACHINE ASSEMBLER): - stable - continue current medication Renal [...] eval. Assessment & Plan (03/25/2024 11:49 AM COPING MACHINE ASSEMBLER): - ref to derm for eval Drug [...] pain Assessment & Plan (03/25/2024 11:49 AM COPING MACHINE ASSEMBLER): - poor control - continue hyosciamine, famotidine, zofran - ref to GI for continued treatment Assessment & Plan (03/20/2023 11:07 AM COPING MACHINE ASSEMBLER): - stable - continue current medication Duodenal [...] medication Assessment & Plan (07/15/2019 11:44 AM COPING MACHINE ASSEMBLER): - stable - continue creon Annual physical [...] able Assessment & Plan (07/15/2019 11:46 AM COPING MACHINE ASSEMBLER): - encourage healthy diet, exercise - check labs - encouraged quitting smoking 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 Assessment & Plan (07/15/2019 11:37 AM COPING MACHINE ASSEMBLER): - encouraged pt to quit smoking Abdominal [...] GI Assessment & Plan (03/20/2023 11:07 AM COPING MACHINE ASSEMBLER): - stable - continue current medication per [...] 09/17/202209/08 Assessment & Plan (03/20/2023 11:08 AM COPING MACHINE ASSEMBLER): - stable off meds - will monitor [...] 09/25/2023 Assessment & Plan (03/26/2021 11:41 AM COPING MACHINE ASSEMBLER): - stable today - continue current medications [...] lexapro Assessment & Plan (07/15/2019 11:38 AM COPING MACHINE ASSEMBLER): - stable - continue current plan Gastroesophageal reflux dise ase without esophagitis 07/15/2019 03/18/2023 Overview (07/15/2019): - GERD managed by Dr Woodard - Pt on omeprazole and carafate for sx control Assessment & Plan (01/01/2021 12:09 PM CDT): - stable - continue current medication Assessment & Plan (02/07/2020 2:32 PM CDT): - stable - continue current medication Assessment & Plan (07/15/2019 11:38 AM COPING MACHINE ASSEMBLER): - stable - continue omeprazole and carafate [...] prn Assessment & Plan (07/15/2019 11:44 AM COPING MACHINE ASSEMBLER): - stable - continue bentyl and amitriptyline per GI recs Viral illness 07/08/2019 02/12/2021 Assessment & Plan (07/09/2019 9:12 AM COPING MACHINE ASSEMBLER): Medrol Dosepak as directed. Recommended Mucinex plain [...] (09/17/2018): Added automatically from request for surgery [id number] Assessment & Plan (02/12/2021 11:23 AM CDT): - encouraged pt to f/u with new GI - continue hyoscyamine Assessment & Plan (01/01/2021 12:10 PM CDT): - continue prn oxycodone for now - discussed need to wean off of this as this is not a viable watermelon inspector solution - will ref to pain management [...] medication Assessment & Plan (07/15/2019 11:36 AM COPING MACHINE ASSEMBLER): - controlled - continue current plan Chronic [...] drink = 0.6 oz pur e alcohol) [facility] [employer] Answer Date Recorded In the past 12 [...] often do you attend chur ch or hoahaoism services? Never 09/21/2023 Do you belong to any clubs o r organizations such as mosque groups, unions, fraternal or athletic groups, or [...] slept in a snf (including now)? No 09/21/2023 PHQ-9 Answer Date Recorded PHQ-9 Total Score 5 03/25/2024 Personal Safety Answer Date Recorded Have you ever been in or are you currently in a harmful physical or emotional relationship or is someone making you feel afraid or unsafe? Denies 08/03/2024 Sex and Gender Information Value Date Recorded Sex Assigned at Not on file Legal Sex Male 3:38 AM COPING MACHINE ASSEMBLER Gender Identity Not on file Sexual Orientation [...] on file Medical Devices Explanted Type Area Yard Person Device Identifier Shelf Expiration Date Model / Serial / Lot [employer] [id number] Connell Flexi-Stent 7fr 5cm Small Pigtail Flexible .035in Stent - [id number] Implanted:Qty: 1 on 09/18/2018 by Vimal Woodruff MD at [facility] Explanted:Qty: 1 on 09/20/2018 at [facility] Stent N/A: Pancreas [employer] 06/10/2023 [id number] / / [id number] Conmed Gina [id number] [place] Viabil 10mm 8.5fr 6cm 200cm Fully Covered Self Expand Pull - [id number] - [id number] Implanted:Qty: 1 on 09/18/2018 by Vimal Woodruff MD at [facility] Explanted:Qty: 1 on 09/20/2018 at [facility] Stent N/A: Bile Duct [employer] Gina 06/29/2021 [id number] / [id number] / [employer] Connell Flexi-Stent 7fr 9cm Small Pigtail Flexible .035in Stent 6575 - [id number] Implanted:Qty: 1 on 02/07/2022 by Vimal Woodruff MD at [facility] Explanted:Qty: 1 on 02/10/2022 by Vimal Woodruff MD at [facility] Stent N/A: Pancreas [employer] 09/07/2026 [id number] / / [id number] [employer] Gina Wallflex 10mm X 60mm Fully Covered Biliary [id number] - [id number] Implanted:Qty: 1 on 02/07/2022 by Vimal Woodruff MD at [facility] Explanted:Qty: 1 on 02/10/2022 by Vimal Woodruff MD at [facility] Stent N/A: Bile Duct [employer] Gina 11/04/2023 [id number] / / [id number] [employer] Connell Flexi-Stent 7fr 9cm Small Pigtail Flexible .035in Stent 6575 - [id number] Implanted:Qty: 1 on 09/21/2023 by Vimal Woodruff MD at [facility] Explanted:Qty: 1 on 09/23/2023 by Vimal Woodruff MD at [facility] Stent N/A: Pancreas [employer] 03/11/2028 [id number] / / [id number] Description:Not present at b eginning of case. Self migrated out [employer] Gina Wallflex 10mm X 60mm Fully Covered Biliary [id number] - [id number] Implanted:Qty: 1 on 09/21/2023 by Vimal Woodruff MD at [facility] Explanted:Qty: 1 on 09/23/2023 by Vimal Woodruff MD at [facility] Stent N/A: Bile Duct [employer] Gina 08/02/2025 [id number] / / [id number] Procedures Procedure Name Priority Date/Time Associated Diagnosis [...] T HIGH-SENSITIVITY 4-HR Timed 06/27/2024 11:44 AM COPING MACHINE ASSEMBLER ECG 12-LEAD STAT 06/27/2024 9:54 AM COPING MACHINE ASSEMBLER CT ABDOMEN PELVIS W CONTRAST ED 06/27/2024 9:42 AM COPING MACHINE ASSEMBLER ETHANOL STAT 06/27/2024 7:53 AM COPING MACHINE ASSEMBLER TROPONIN T HIGH-SENSITIVITY SERIES (BASELINE, 2HR, 4HR, 6HR) STAT 06/27/2024 7:53 AM COPING MACHINE ASSEMBLER EGFR STAT 06/27/2024 7:53 AM COPING MACHINE ASSEMBLER DIFFERENTIAL AUTO STAT 06/27/2024 7:5 3 AM COPING MACHINE ASSEMBLER LIPASE STAT 06/27/2024 7:53 AM COPING MACHINE ASSEMBLER COMPREHENSIVE METABOLIC PANEL STAT 06/27/2024 7:53 AM COPING MACHINE ASSEMBLER CBC WITH AUTO DIFFERENTIAL STAT 06/27/2024 7:53 AM COPING MACHINE ASSEMBLER URINALYSIS, MICROSCOPIC ONLY STAT 06/19/2024 7:06 PM COPING MACHINE ASSEMBLER URINALYSIS AND REFLEX TO MICROSCOPIC AND CULTURE STAT 06/19/2024 7:06 PM COPING MACHINE ASSEMBLER ECG 12-LEAD STAT 06/19/2024 7:04 PM COPING MACHINE ASSEMBLER EGFR STAT 06/19/2024 6:56 PM COPING MACHINE ASSEMBLER DIFFERENTIAL AUTO STAT 06/19/2024 6:5 6 PM COPING MACHINE ASSEMBLER TROPONIN T HIGH-SENSITIVITY SERIES (BASELINE, 2HR, 4HR, 6HR) STAT 06/19/2024 6:56 PM COPING MACHINE ASSEMBLER LIPASE STAT 06/19/2024 6:56 PM COPING MACHINE ASSEMBLER COMPREHENSIVE METABOLIC PANEL STAT 06/19/2024 6:56 PM COPING MACHINE ASSEMBLER CBC WITH AUTO DIFFERENTIAL STAT 06/19/2024 6:56 PM COPING MACHINE ASSEMBLER DRUGS OF ABUSE SCREEN, URINE WITHOUT CONFIRMATION STAT 05/20/2024 7:37 PM COPING MACHINE ASSEMBLER CT ABDOMEN PELVIS W CONTRAST ED 05/20/2024 5:56 PM COPING MACHINE ASSEMBLER SEPSIS LACTATE WITH REFLEX STAT 05/20/2024 5:16 PM COPING MACHINE ASSEMBLER EGFR STAT 05/20/2024 4:03 PM COPING MACHINE ASSEMBLER DIFFERENTIAL AUTO STAT 05/20/2024 4:0 3 PM COPING MACHINE ASSEMBLER LIPASE STAT 05/20/2024 4:03 PM COPING MACHINE ASSEMBLER COMPREHENSIVE METABOLIC PANEL STAT 05/20/2024 4:03 PM COPING MACHINE ASSEMBLER CBC WITH AUTO DIFFERENTIAL STAT 05/20/2024 4:03 PM COPING MACHINE ASSEMBLER URINALYSIS AND REFLEX TO MICROSCOPIC AND CULTURE STAT 05/20/2024 4:03 PM COPING MACHINE ASSEMBLER from Last 3 Months Results * Urinalysis reflex to microscopic and culture Urine (08/03/2024 1:50 PM CDT) Color, ur Yellow Yellow Comment:Testing performed by : [address] [address] Clarity, ur Clear Clear NEEL Comment:Testing performed by : [address] [address] Specific gravity, ur 1.009 1.003 - 1.030 NEEL Comment:Testing performed by : [address] [address] pH, urine 7.0 NEEL Comment: Interpretive Data U rine pH is affected by diet, medications, systemic acid-base disturbances, and renal tubular function. pH may affect urinary stone formation. For example, urine pH below 6.0 may help reduce the tendency for calcium phosphate stones and pH greater than 6.0 may reduce the tendency for uric acid stone formation. Source: [facility] [employer] Current Interpretive Data was last revised on 2017 Testing performed by: [address] [address] Protein, ur ql Negative Negative NEEL Comment:Testing performed by : [address] [address] Glucose, ur ql Negative Negative NEEL Comment:Testing performed by : [address] [address] Ketones, ur Negative Negative NEEL Comment:Testing performed by : [address] [address] Bilirubin, ur Negative Negative NEEL Comment:Testing performed by : [address] [address] Blood, ur Negative Negative NEEL Comment:Testing performed by : [address] [address] Urobilinogen, ur <2.0 <2.0 mg/dL NEEL SMITH Comment:Testing performed by : [address], [facility] [place] [address] Nitrite, ur Negative Negative NEEL SMITH Comment:Testing performed by : [facility], [address] [place] [address]., [address] Leukocyte esterase, ur Negative Negative NEEL SMITH Comment:Testing performed by : [facility], [address] [place] [address]., [address] UA reflex comment Reflex conditions for microscopic UA and culture not met. NEEL SMITH Comment:Testing performed by : [facility], [address] [place] [address]., [address] Urine 08/03/2024 1:50 PM CDT 08/03/2024 1:53 PM CDT Freddy Yao DO LAB MICROBIOLOGY - GENERAL ORDERABLES Final Result NEEL SMITH [address] [facility] [place] [address] * eGFR (08/03/2024 1:45 PM CDT) eGFR [...] was last reviewed 2021. Testing performed by: [facility], [address] [place] [address]., [address] Blood 08/03/2024 1:45 PM CDT 08/03/2024 1:53 PM CDT us Freddy Yao DO LAB BLOOD ORDERABLES Final Result NEEL [address] [facility] [place] [address] * (ABNORMAL) Differential, auto (08/03/2024 1:45 PM CDT) Neutrophil abs 7.8(H) 1.5 - 6.5 K/cumm Comment:Testing performed by : [address] [address] Imm gran abs 0.1 0.0 - 0.1 K/cumm NEEL Comment:Testing performed by : [address] [address] Lymphocyte abs 2.5 0.8 - 3.3 K/cumm NEEL Comment:Testing performed by : [address] [address] Monocyte abs 1.4(H) 0.2 - 0.8 K/cumm NEEL Comment:Testing performed by : [address] [address] Eosinophil abs 0.1 0.0 - 0.5 K/cumm NEEL Comment:Testing performed by : [address] [address] Basophil abs 0.1 0.0 - 0.1 K/cumm NEEL Comment:Testing performed by : [address] [address] Neutrophil pct 65.5 % NEEL Comment: Interpretive Data Percent cell count reference ranges are not reported, since discordance with absolute values may lead to misinterpretation of CBC data. Current Interpretive Data was last revised on 2017. Testing performed by: [address] [address] Imm gran pct 0.5 % NEEL Comment: Interpretive Data Percent cell count reference ranges are not reported, since discordance with absolute values may lead to misinterpretation of CBC data. Current Interpretive Data was last revised on 2017. Testing performed by: [address] [address] Lymphocyte pct 21.0 % [facility] Comment: Interpretive Data Percent cell count reference ranges are not reported, since discordance with absolute values may lead to misinterpretation of CBC data. Current Interpretive Data was last revised on 2017. Testing performed by: [address] [address] Monocyte pct 11.6 % [facility] Comment: Interpretive Data Percent cell count reference ranges are not reported, since discordance with absolute values may lead to misinterpretation of CBC data. Current Interpretive Data was last revised on 2017. Testing performed by: [address] [address] Eosinophil pct 0.8 % [facility] Comment: Interpretive Data Percent cell count reference ranges are not reported, since discordance with absolute values may lead to misinterpretation of CBC data. Current Interpretive Data was last revised on 2017. Testing performed by: [address] [address] Basophil pct 0.6 % [facility] Comment: Interpretive Data Percent cell count reference ranges are not reported, since discordance with absolute values may lead to misinterpretation of CBC data. Current Interpretive Data was last revised on 2017. Testing performed by: [address] [address] Blood 08/03/2024 1:45 PM CDT 08/03/2024 1:53 PM CDT us Freddy Yao DO LAB BLOOD ORDERABLES Final Result NEEL [address] [facility] Department [place] [address] * (ABNORMAL) CBC with auto differential (08/03/2024 1:45 PM CDT) WBC 11.9(H) 3.8 - 9.9 K/cumm Comment:Testing performed by : [address] [address] Hgb 13.3 13.0 - 17.5 g/dL NEEL Comment:Testing performed by : [address] [address] Hct 40.4 38.9 - 50.3 % NEEL Comment:Testing performed by : [address] [address] Plt 333 150 - 400 K/cumm NEEL Comment:Testing performed by : [address] [address] MPV 10.3 9.1 - 12.3 fL NEEL Comment:Testing performed by : [address], [address] RBC 4.81 4.30 - 5.80 M/cumm NEEL Comment:Testing performed by : [address] [address] MCV 84.0 81.3 - 96.4 fL NEEL Comment:Testing performed by : [address] [address] MCH 27.7 27.1 - 33.3 pg NEEL Comment:Testing performed by : [address] [address] MCHC 32.9 32.3 - 35.7 g/dL NEEL Comment:Testing performed by : [address] [address] RDW CV 16.4(H) 11.1 - 14.9 % NEEL Comment:Testing performed by : [address] [address] RDW SD 50.0(H) 35.7 - 48.1 fL NEEL Comment:Testing performed by : [address] [address] NRBC abs 0.00 0.00 - 0.01 K/cumm NEEL Comment:Testing performed by : [address] [address] Blood Venous blood specimen / Unknown 08/03/2024 1:45 PM CDT 08/03/2024 1:53 PM CDT Freddy Steele Jakidonald LAB BLOOD ORDERABLES Final Result NEEL [address] [place] [address] * Lipase (08/03/2024 1:45 PM CDT) Lipase 58 10 - 99 Units/L Comment:Testing performed by : [address] [address] Blood Venous blood specimen / Unknown 08/03/2024 1:45 PM CDT 08/03/2024 1:53 PM CDT Freddy Yao LAB BLOOD ORDERABLES Final Result Performing Organization Address City/[facility] Co de Phone Number NEEL [address] [address] * Comprehensive metabolic panel (08/03/2024 1:45 PM CDT) Pathologist [facility] Sodium 142 135 - 145 mmol/L Comment:Testing performed by : [address] [address] Potassium, pl 3.9 3.3 - 4.9 mmol/L NEEL Comment:Testing performed by : [address] [address] Chloride 108 97 - 110 mmol/L NEEL Comment:Testing performed by : [address] [address] CO2 23 22 - 32 mmol/L NEEL Comment:Testing performed by : [address] [address] Anion gap 11 2 - 15 mmol/L NEEL Comment:Testing performed by : [address] [address] BUN 9 6 - 25 mg/dL NEEL Comment:Testing performed by : [address] [address] Creatinine 0.90 0.80 - 1.30 mg/dL NEEL Comment:Testing performed by : [address] [address] Glucose 107 70 - 199 mg/dL NEEL [...] was last revised 2022. Testing performed by: [address] [address] Calcium 9.4 8.5 - 10.3 mg/dL NEEL Comment:Testing performed by : [address] [address] Bilirubin, total 0.3 0.1 - 1.2 mg/dL NEEL Comment:Testing performed by : [address] [address] Protein, pl 7.1 6.5 - 8.5 g/dL NEEL Comment:Testing performed by : [address] [address] Albumin 4.3 3.5 - 5.0 g/dL NEEL Comment:Testing performed by : [address] [address] Alk phos 80 40 - 130 Units/L NEEL Comment:Testing performed by : [address] [address] ALT 23 7 - 55 Units/L NEEL Comment:Testing performed by : [address] [address] AST 32 10 - 50 Units/L NEEL Comment:Testing performed by : [address] [address] Blood 08/03/2024 1:45 PM CDT 08/03/2024 1:53 PM CDT us Freddy Yao DO LAB BLOOD ORDERABLES Final Result NEEL [address] [facility] [place] [address] * CT Abdomen Pelvis W Contrast (08/02/2024 [...] Priti Salmeron M.D. TW: JENNA Report ID: [id number] Reading Location: [id number] Procedure Note Priti Salmeron MD - 08/02/2024 [...] Priti Salmeron M.D. TW: JENNA Report ID: [id number] Reading Location: [id number] Vijaya LAWTON [address] CT PROCEDURES Final Result * (ABNORMAL) Urinalysis reflex to microscopic and culture Urine (08/02/2024 8:48 AM CDT) Color, ur Yellow Yellow Comment:Testing performed by : [address] [address] Clarity, ur Clear Clear NEEL Comment:Testing performed by : [address] [address] Specific gravity, ur 1.025 1.003 - 1.030 NEEL Comment:Testing performed by : [address], [place]., [address] pH, urine 8.0 NEEL Comment: Interpretive Data U rine pH is affected by diet, medications, systemic acid-base disturbances, and renal tubular function. pH may affect urinary stone formation. For example, urine pH below 6.0 may help reduce the tendency for calcium phosphate stones and pH greater than 6.0 may reduce the tendency for uric acid stone formation. Source: [facility] [employer] Current Interpretive Data was last revised on 2017 Testing performed by: [address] [address] Protein, ur ql 1+(A) Negative NEEL Comment:Testing performed by : [address] [address] Glucose, ur ql Trace(A) Negative NEEL Comment:Testing performed by : [address] [address] Ketones, ur 2+(A) Negative NEEL Comment:Testing performed by : [address] [address] Bilirubin, ur Negative Negative NEEL Comment:Testing performed by : [address] [address] Blood, ur Negative Negative NEEL Comment:Testing performed by : [address] [address] Urobilinogen, ur <2.0 <2.0 mg/dL NEEL Comment:Testing performed by : [address] [address] Nitrite, ur Negative Negative NEEL Comment:Testing performed by : [address] [address] Leukocyte esterase, ur Negative Negative NEEL Comment:Testing performed by : [address] [address] UA reflex comment Reflex to microscopic UA will be performed. NEEL Comment:Testing performed by : [address] [address] Urine 08/02/2024 8:48 AM CDT 08/02/2024 8:54 AM CDT Freddy Yao DO LAB MICROBIOLOGY - GENERAL ORDERABLES Final Result Performing Organization Address [facility] Co de Phone Number NEEL [address] [place] [address] * (ABNORMAL) Urinalysis, microscopic only (08/02/2024 8:48 AM CDT) Pathologist [facility] WBC, ur 0-5 0 - 5 /HPF Comment:Testing performed by : [facility], [address] [place] [address]., [address] RBC, ur 0-2 0 - 2 /HPF NEEL Comment:Testing performed by : [facility], [address] [place] [address]., [address] Epithelial cells, squamous, ur 1-5 0 - 5 /HPF NEEL Comment:Testing performed by : [address] [address] Mucous, ur Present(A) NEEL Comment:Testing performed by : [address] [address] Culture Reflex Comment Reflex conditions for urine culture (WBC >10) not met. NEEL Comment:Testing performed by : [address] [address] Urine 08/02/2024 8:48 AM CDT 08/02/2024 8:54 AM CDT Freddy Yao DO [facility] URINE ORDERABLES Final Result Performing Organization Address [facility] Center/[facility] Co de Phone Number NEEL [facility] [place] [address] * eGFR (08/02/2024 8:43 AM CDT) Pathologist [facility] eGFR >90 >=60 mL/min/1. 73 [...] was last reviewed 2021. Testing performed by: [address] [address] Blood 08/02/2024 8:43 AM CDT 08/02/2024 8:53 AM CDT us Freddy Yao DO LAB BLOOD ORDERABLES Final Result NEEL SMITH [address] [facility] Department of Laboratories [place], [place] [id number] * (ABNORMAL) Differential, auto (08/02/2024 8:43 AM CDT) Pathologist [facility] Neutrophil abs 12.1(H) 1.5 - 6.5 K/cumm Comment:Testing performed by : [address] [address] Imm gran abs 0.1 0.0 - 0.1 K/cumm NEEL SMITH Comment:Testing performed by : [address] [address] Lymphocyte abs 0.9 0.8 - 3.3 K/cumm NEEL SMITH Comment:Testing performed by : [address] [address] Monocyte abs 0.7 0.2 - 0.8 K/cumm [facility] Comment:Testing performed by : [address] [address] Eosinophil abs 0.0 0.0 - 0.5 K/cumm [facility] Comment:Testing performed by : [address] [address] Basophil abs 0.0 0.0 - 0.1 K/cumm [facility] Comment:Testing performed by : [address] [address] Neutrophil pct 88.2 % [facility] Comment: Interpretive Data Percent cell count reference ranges are not reported, since discordance with absolute values may lead to misinterpretation of CBC data. Current Interpretive Data was last revised on 2017. Testing performed by: [address] [address] Imm gran pct 0.4 % [facility] Comment: Interpretive Data Percent cell count reference ranges are not reported, since discordance with absolute values may lead to misinterpretation of CBC data. Current Interpretive Data was last revised on 2017. Testing performed by: [address] [address] Lymphocyte pct 6.6 % [facility] Comment: Interpretive Data Percent cell count reference ranges are not reported, since discordance with absolute values may lead to misinterpretation of CBC data. Current Interpretive Data was last revised on 2017. Testing performed by: [address] [address] Monocyte pct 4.7 % [facility] Comment: Interpretive Data Percent cell count reference ranges are not reported, since discordance with absolute values may lead to misinterpretation of CBC data. Current Interpretive Data was last revised on 2017. Testing performed by: [address] [address] Eosinophil pct 0.0 % [facility] Comment: Interpretive Data Percent cell count reference ranges are not reported, since discordance with absolute values may lead to misinterpretation of CBC data. Current Interpretive Data was last revised on 2017. Testing performed by: [address] [address] Basophil pct 0.1 % NEEL Comment: Interpretive Data Percent cell count reference ranges are not reported, since discordance with absolute values may lead to misinterpretation of CBC data. Current Interpretive Data was last revised on 2017. Testing performed by: [address] [address] Blood 08/02/2024 8:43 AM CDT 08/02/2024 8:53 AM CDT us Freddy Yao DO LAB BLOOD ORDERABLES Final Result NEEL [address] [facility] [place] [address] * (ABNORMAL) CBC with auto differential (08/02/2024 8:43 AM CDT) WBC 13.7(H) 3.8 - 9.9 K/cumm Comment:Testing performed by : [address] [address] Hgb 12.9(L) 13.0 - 17.5 g/dL NEEL Comment:Testing performed by : [address] [address] Hct 38.3(L) 38.9 - 50.3 % NEEL Comment:Testing performed by : [address] [address] Plt 310 150 - 400 K/cumm NEEL Comment:Testing performed by : [address] [address] MPV 9.9 9.1 - 12.3 fL NEEL Comment:Testing performed by : [address] [address] RBC 4.63 4.30 - 5.80 M/cumm NEEL SMITH Comment:Testing performed by : [address] [address] MCV 82.7 81.3 - 96.4 fL NEEL Comment:Testing performed by : [address] [address] MCH 27.9 27.1 - 33.3 pg NEEL SMITH Comment:Testing performed by : [address] [address] MCHC 33.7 32.3 - 35.7 g/dL NEEL SMITH Comment:Testing performed by : [address] [address] RDW CV 15.9(H) 11.1 - 14.9 % NEEL SMITH Comment:Testing performed by : [address] [address] RDW SD 48.1 35.7 - 48.1 fL NEEL SMITH Comment:Testing performed by : [address] [address] NRBC abs 0.00 0.00 - 0.01 K/cumm NEEL SMITH Comment:Testing performed by : [address], [address] Blood Venous blood specimen / Unknown 08/02/2024 8:43 AM CDT 08/02/2024 8:53 AM CDT Freddy Yao DO LAB BLOOD ORDERABLES Final Result Performing Organization Address City/[facility]/ZIP Co de Phone Number [address] [place] [address] * Lipase (08/02/2024 8:43 AM CDT) Pathologist [facility] Lipase 28 10 - 99 Units/L Comment:Testing performed by : [address] [address] Blood Venous blood specimen / Unknown 08/02/2024 8:43 AM CDT 08/02/2024 8:53 AM CDT Freddy Yao DO LAB BLOOD ORDERABLES Final Result Performing Organization Address City/[facility]/ZIP Co de Phone Number [address] [address] * Comprehensive metabolic panel (08/02/2024 8:43 AM CDT) Sodium 143 135 - 145 mmol/L Comment:Testing performed by : [address] [address] Potassium, pl 3.9 3.3 - 4.9 mmol/L NEEL Comment:Testing performed by : [address], [place]., [address] Chloride 107 97 - 110 mmol/L NEEL Comment:Testing performed by : [address], [place]., [address] CO2 22 22 - 32 mmol/L NEEL Comment:Testing performed by : [address] [address] Anion gap 14 2 - 15 mmol/L NEEL Comment:Testing performed by : [address], [place]., [address] BUN 9 6 - 25 mg/dL NEEL Comment:Testing performed by : [address] [address] Creatinine 0.90 0.80 - 1.30 mg/dL NEEL Comment:Testing performed by : [address] [address] Glucose 161 70 - 199 mg/dL [facility] Comment: Interpretive Data Fasting glucose >/= 126 [...] was last revised 2022. Testing performed by: [address] [address] Calcium 9.0 8.5 - 10.3 mg/dL NEEL Comment:Testing performed by : [address] [address] Bilirubin, total 0.5 0.1 - 1.2 mg/dL NEEL SMITH Comment:Testing performed by : [address] [address] Protein, pl 7.1 6.5 - 8.5 g/dL NEEL SMITH Comment:Testing performed by : [address] [address] Albumin 4.3 3.5 - 5.0 g/dL NEEL Comment:Testing performed by : [address] [address] Alk phos 81 40 - 130 Units/L NEEL Comment:Testing performed by : [address], [place]., [address] ALT 20 7 - 55 Units/L NEEL Comment:Testing performed by : [address] [address] AST 26 10 - 50 Units/L NEEL Comment:Testing performed by : [address] [address] Blood 08/02/2024 8:43 AM CDT 08/02/2024 8:53 AM CDT us Freddy Yao DO LAB BLOOD ORDERABLES Final Result NEEL [address] [facility] [place] [address] * Troponin T high-sensitivity 4-hour (06/27/2024 11:44 AM COPING MACHINE ASSEMBLER) Trop T hs <6 <=22 ng/L Comment: Interpretive Data For further hscTnT resources including the diagnostic algorithm and an aid in interpretation, copy and paste this link: https://nrl.testcatalog.org/show/hsTrop Current Interpretive Data last revised 2020. Testing performed by: [address] [address] Trop T hs delta 0 ng/L NEEL Comment:Testing performed by : [address] [address] Trop T hs interp Insignificant NEEL SMITH Comment:Testing performed by : [facility], [address] [place] [address]., [address] Blood 06/27/2024 11:4 4 AM [employer]ING MACHINE ASSEMBLER 06/27/2024 11:47 AM COPING MACHINE ASSEMBLER Bernard Bruce MD LAB BLOOD ORDERABLES Final Resul t Performing Organization Address City/[facility]/ZIP Co de Phone Number NEEL [address] [facility] [place] [address] * ECG 12 lead (06/27/2024 9:54 AM COPING MACHINE ASSEMBLER) Pathologist [facility] Ventricular Rate EKG/Min 74 BPM [facility] Atrial Rate 74 BPM [facility] OR-Interval (MSEC) 120 ms [facility] QRS-Interval (MSEC) 100 ms [facility] QT-Interval (MSEC) 394 ms [facility] QTc 437 ms [facility] P [place] 37 degrees [facility] R [place] 12 degrees [facility] T [place] 29 degrees [facility] Diagnosis Normal sinus rhythm Normal ECG When compared with ECG of 19-JUN-2024 19:04, No significant change was found Confirmed by PRINCESS BAE M.D. ([id number]) on 06/28/2024 11:26:58 PM [facility] 06/27/2024 9:54 AM COPING MACHINE ASSEMBLER 06/28/2024 11:26 PM COPING MACHINE ASSEMBLER us Bernard Bruce MD ECG ORDERABLES Final Result Performing Organization Address [facility] Co de Phone Number [facility] * CT Abdomen Pelvis W Contrast (06/27/2024 9:42 AM COPING MACHINE ASSEMBLER) Anatomical Region Laterality Modality Body N/A Computed Tomogra phy 06/27/2024 10:1 8 AM COPING MACHINE ASSEMBLER Narrative 06/27/2024 10:30 AM COPING MACHINE ASSEMBLER EXAM DESCRIPTION: CT ABDOMEN PELVIS W CONTRAST [...] Jake Don M.D. LB: [place] Report ID: [id number] Reading Location: [place] [address] Procedure Note Jake Don MD - 06/27/2024 [...] Jake Don M.D. [facility]: [place] Report ID: [id number] Reading Location: [place] [address] us Bernard Bruce MD IMG CT PROCEDURES Final Result * Troponin T high-sensitivity series (baseline, 2hr, 4hr, 6hr) (06/27/2024 7:53 AM COPING MACHINE ASSEMBLER) Trop T hs <6 <=22 ng/L Comment: Interpretive Data For further hscTnT resources including the diagnostic algorithm and an aid in interpretation, copy and paste this link: https://nrl.testcatalog.org/show/hsTrop Current Interpretive Data last revised 2020. Testing performed by: [facility], [address] [place] [address]., [address] Blood 06/27/2024 7:53 AM COPING MACHINE ASSEMBLER 06/27/2024 7:55 AM COPING MACHINE ASSEMBLER us Bernard Bruce MD LAB BLOOD ORDERABLES Edited Resu lt - Final [facility] [address] [facility] [place] [address] * eGFR (06/27/2024 7:53 AM COPING MACHINE ASSEMBLER) eGFR 85 >=60 mL/min/1. 73 m2 Comment: [...] was last reviewed 2021. Testing performed by: [address] [address] Blood 06/27/2024 7:53 AM COPING MACHINE ASSEMBLER 06/27/2024 7:55 AM COPING MACHINE ASSEMBLER us Bernard Bruce MD LAB BLOOD ORDERABLES Final Resul t NEEL [address] [facility] [place] [address] * (ABNORMAL) Differential, auto (06/27/2024 7:53 AM COPING MACHINE ASSEMBLER) Neutrophil abs 5.4 1.5 - 6.5 K/cumm Comment:Testing performed by : [address] [address] Imm gran abs 0.0 0.0 - 0.1 K/cumm NEEL SMITH Comment:Testing performed by : [address] [address] Lymphocyte abs 3.7(H) 0.8 - 3.3 K/cumm NEEL SMITH Comment:Testing performed by : [address], [place]., [address] Monocyte abs 1.7(H) 0.2 - 0.8 K/cumm NEEL Comment:Testing performed by : [address], [place]., [address] Eosinophil abs 0.5 0.0 - 0.5 K/cumm NEEL Comment:Testing performed by : [address], [place]., [address] Basophil abs 0.1 0.0 - 0.1 K/cumm NEEL Comment:Testing performed by : [address] [address] Neutrophil pct 47.6 % [facility] Comment: Interpretive Data Percent cell count reference ranges are not reported, since discordance with absolute values may lead to misinterpretation of CBC data. Current Interpretive Data was last revised on 2017. Testing performed by: [address] [address] Imm gran pct 0.3 % [facility] Comment: Interpretive Data Percent cell count reference ranges are not reported, since discordance with absolute values may lead to misinterpretation of CBC data. Current Interpretive Data was last revised on 2017. Testing performed by: [address] [address] Lymphocyte pct 32.4 % [facility] Comment: Interpretive Data Percent cell count reference ranges are not reported, since discordance with absolute values may lead to misinterpretation of CBC data. Current Interpretive Data was last revised on 2017. Testing performed by: [address] [address] Monocyte pct 14.6 % [facility] Comment: Interpretive Data Percent cell count reference ranges are not reported, since discordance with absolute values may lead to misinterpretation of CBC data. Current Interpretive Data was last revised on 2017. Testing performed by: [address] [address] Eosinophil pct 4.4 % [facility] Comment: Interpretive Data Percent cell count reference ranges are not reported, since discordance with absolute values may lead to misinterpretation of CBC data. Current Interpretive Data was last revised on 2017. Testing performed by: [address] [address] Basophil pct 0.7 % NEEL SMITH Comment: Interpretive Data Percent cell count reference ranges are not reported, since discordance with absolute values may lead to misinterpretation of CBC data. Current Interpretive Data was last revised on 2017. Testing performed by: [address] [address] Blood 06/27/2024 7:5 3 AM [employer]ING MACHINE ASSEMBLER 06/27/2024 7:55 AM COPING MACHINE ASSEMBLER us Bernard Bruce MD LAB BLOOD ORDERABLES Final Resul t NEEL [address] [facility] [place] [address] * (ABNORMAL) CBC with auto differential (06/27/2024 7:53 AM COPING MACHINE ASSEMBLER) WBC 11.3(H) 3.8 - 9.9 K/cumm Comment:Testing performed by : [address] [address] Hgb 14.2 13.0 - 17.5 g/dL NEEL SMITH Comment:Testing performed by : [address] [address] Hct 43.1 38.9 - 50.3 % NEEL SMITH Comment:Testing performed by : [address] [address] Plt 301 150 - 400 K/cumm NEEL SMITH Comment:Testing performed by : [address] [address] MPV 10.2 9.1 - 12.3 fL NEEL SMITH Comment:Testing performed by : [address] [address] RBC 5.16 4.30 - 5.80 M/cumm NEEL SMITH Comment:Testing performed by : [address] [address] MCV 83.5 81.3 - 96.4 fL NEEL SMITH Comment:Testing performed by : [address], [address] MCH 27.5 27.1 - 33.3 pg NEEL SMITH Comment:Testing performed by : [address] [address] MCHC 32.9 32.3 - 35.7 g/dL NEEL SMITH Comment:Testing performed by : [address], [address] RDW CV 16.2(H) 11.1 - 14.9 % NEEL Comment:Testing performed by : [address], [address] RDW SD 49.5(H) 35.7 - 48.1 fL NEEL SMITH Comment:Testing performed by : [address], [address] NRBC abs 0.00 0.00 - 0.01 K/cumm NEEL Comment:Testing performed by : [address], [address] Blood Venous blood specimen / Unknown 06/27/2024 7:53 AM COPING MACHINE ASSEMBLER 06/27/2024 7:55 AM COPING MACHINE ASSEMBLER us Bernard Bruce MD LAB BLOOD ORDERABLES Final Resul t Performing Organization Address City/[facility]/ZIP Co de Phone Number [address] [place] [address] * (ABNORMAL) Lipase (06/27/2024 7:53 AM COPING MACHINE ASSEMBLER) Lipase 355(H) 10 - 99 Units/L Comment:Testing performed by : [address], [address] Blood Venous blood specimen / Unknown 06/27/2024 7:53 AM COPING MACHINE ASSEMBLER 06/27/2024 7:55 AM COPING MACHINE ASSEMBLER us Bernard Bruce MD LAB BLOOD ORDERABLES Final Resul t [address] [place] [address] * Ethanol (06/27/2024 7:53 AM COPING MACHINE ASSEMBLER) Ethanol <10 <=10 mg/dL Comment: Interpretive Data Legal limit of intoxication > or = 80 mg/dL Levels > or = 400 mg/dL are potentially TOXIC. Current interpretive data was last revised on 2018. Testing performed by: [address] [address] Blood 06/27/2024 7:53 AM COPING MACHINE ASSEMBLER 06/27/2024 7:55 AM COPING MACHINE ASSEMBLER us Bernard Bruce MD LAB BLOOD ORDERABLES Final Resul t [facility] [address] [facility] [place] [address] * (ABNORMAL) Comprehensive metabolic panel (06/27/2024 7:53 AM COPING MACHINE ASSEMBLER) Pathologist [facility] Sodium 141 135 - 145 mmol/L Comment:Testing performed by : [address] [address] Potassium, pl 4.5 3.3 - 4.9 mmol/L NEEL Comment:Testing performed by : [address] [address] Chloride 102 97 - 110 mmol/L NEEL Comment:Testing performed by : [address] [address] CO2 25 22 - 32 mmol/L NEEL Comment:Testing performed by : [address] [address] Anion gap 14 2 - 15 mmol/L NEEL Comment:Testing performed by : [address] [address] BUN 15 6 - 25 mg/dL NEEL Comment:Testing performed by : [address] [address] Creatinine 1.10 0.80 - 1.30 mg/dL NEEL Comment:Testing performed by : [address] [address] Glucose 110 70 - 199 mg/dL NEEL [...] was last revised 2022. Testing performed by: [address] [address] Calcium 10.1 8.5 - 10.3 mg/dL NEEL Comment:Testing performed by : [address] [address] Bilirubin, total 0.3 0.1 - 1.2 mg/dL NEEL Comment:Testing performed by : [address] [address] Protein, pl 7.4 6.5 - 8.5 g/dL NEEL Comment:Testing performed by : [address] [address] Albumin 4.5 3.5 - 5.0 g/dL NEEL Comment:Testing performed by : [address] [address] Alk phos 91 40 - 130 Units/L [facility] Comment:Testing performed by : [address] [address] ALT 40 7 - 55 Units/L [facility] Comment:Testing performed by : [address] [address] AST 58(H) 10 - 50 Units/L NEEL Comment:Testing performed by : [address] [address] Blood 06/27/2024 7:53 AM COPING MACHINE ASSEMBLER 06/27/2024 7:55 AM COPING MACHINE ASSEMBLER us Bernard Bruce MD LAB BLOOD ORDERABLES Final Resul t NEEL [address] [facility] [place] [address] * (ABNORMAL) Urinalysis reflex to microscopic and culture Urine (06/19/2024 7:06 PM COPING MACHINE ASSEMBLER) Color, ur Yellow Yellow Comment:Testing performed by : [address] [address] Clarity, ur Clear Clear NEEL Comment:Testing performed by : [address] [address] Specific gravity, ur 1.023 1.003 - 1.030 NEEL Comment:Testing performed by : [address] [address] pH, urine 6.0 NEEL Comment: Interpretive Data U rine pH is affected by diet, medications, systemic acid-base disturbances, and renal tubular function. pH may affect urinary stone formation. For example, urine pH below 6.0 may help reduce the tendency for calcium phosphate stones and pH greater than 6.0 may reduce the tendency for uric acid stone formation. Source: [facility] [employer] Current Interpretive Data was last revised on 2017 Testing performed by: [address] [address] Protein, ur ql Trace(A) Negative NEEL Comment:Testing performed by : [address] [address] Glucose, ur ql Negative Negative NEEL Comment:Testing performed by : [address] [address] Ketones, ur 1+(A) Negative NEEL Comment:Testing performed by : [address] [address] Bilirubin, ur Negative Negative NEEL Comment:Testing performed by : [address] [address] Blood, ur Negative Negative NEEL Comment:Testing performed by : [address] [address] Urobilinogen, ur <2.0 <2.0 mg/dL NEEL SMITH Comment:Testing performed by : [facility], [address] [place] [address]., [address] Nitrite, ur Negative Negative NEEL Comment:Testing performed by : [address] [address] Leukocyte esterase, ur Negative Negative NEEL Comment:Testing performed by : [address] [address] UA reflex comment Reflex to microscopic UA will be performed. NEEL Comment:Testing performed by : [address], [place]., [address] Urine 06/19/2024 7:06 PM COPING MACHINE ASSEMBLER 06/19/2024 7:11 PM COPING MACHINE ASSEMBLER us Terri Fuentes MD LAB MICROBIOLOGY - GENER AL ORDERABLES Final Result Performing Organization Address City/State/[facility] Co de Phone Number NEEL [address] [facility] Department of Laboratories [place], [place] [id number] * (ABNORMAL) Urinalysis, microscopic only (06/19/2024 7:06 PM COPING MACHINE ASSEMBLER) WBC, ur 0-5 0 - 5 /HPF Comment:Testing performed by : [address] [address] RBC, ur 0-2 0 - 2 /HPF NEEL Comment:Testing performed by : [address] [address] Bacteria, ur Trace(A) NEEL Comment:Testing performed by : [address] [address] Mucous, ur Present(A) NEEL Comment:Testing performed by : [address] [address] Culture Reflex Comment Reflex conditions for urine culture (WBC >10) not met. NEEL SMITH Comment:Testing performed by : [address] [address] Urine 06/19/2024 7:06 PM COPING MACHINE ASSEMBLER 06/19/2024 7:11 PM COPING MACHINE ASSEMBLER Terri Fuentes MD LAB URINE ORDERABLES Fin al Result NEEL [address] [facility] [place] [address] * ECG 12 lead (06/19/2024 7:04 PM COPING MACHINE ASSEMBLER) Ventricular Rate EKG/Min 67 BPM [facility] Atrial Rate 67 BPM [facility] OR-Interval (MSEC) 106 ms [facility] QRS-Interval (MSEC) 102 ms [facility] QT-Interval (MSEC) 410 ms [facility] QTc 433 ms [facility] P Warren 28 degrees [facility] R Warren 37 degrees [facility] T Warren 50 degrees [facility] Diagnosis Sinus rhythm with short OR with sinus arrhythmia Within normal limits When compared with ECG of 20-APR-2024 12:58, No significant change Confirmed by SULTAN DE JESUS M.D. ([id number]) on 06/20/2024 1:51:59 PM [facility] 06/19/2024 7:04 PM COPING MACHINE ASSEMBLER 06/20/2024 1:51 PM COPING MACHINE ASSEMBLER Terri Fuentes MD ECG ORDERABLES Final Re sult Performing Organization Address [facility] Co de Phone Number [facility] * Troponin T high-sensitivity series (baseline, 2hr, 4hr, 6hr) (06/19/2024 6:56 PM COPING MACHINE ASSEMBLER) Trop T hs <6 <=22 ng/L Comment: Interpretive Data For further hscTnT resources including the diagnostic algorithm and an aid in interpretation, copy and paste this link: https://nrl.testcatalog.org/show/hsTrop Current Interpretive Data last revised 2020. Testing performed by: [facility], [address] [place] [address]., [address] Blood 06/19/2024 6:56 PM COPING MACHINE ASSEMBLER 06/19/2024 7:03 PM COPING MACHINE ASSEMBLER Terri Fuentes MD LAB BLOOD ORDERABLES Fin al Result Performing Organization Address [facility] Co de Phone Number NEEL [address] [place] [address] * eGFR (06/19/2024 6:56 PM COPING MACHINE ASSEMBLER) eGFR >90 >=60 mL/min/1. 73 m2 Comment: [...] was last reviewed 2021. Testing performed by: [address] [address] Blood 06/19/2024 6:56 PM COPING MACHINE ASSEMBLER 06/19/2024 7:03 PM COPING MACHINE ASSEMBLER Terri Fuentes MD LAB BLOOD ORDERABLES Fin al Result Performing Organization Address [facility] Co de Phone Number NEEL [facility] [place] [address] * (ABNORMAL) Differential, auto (06/19/2024 6:56 PM COPING MACHINE ASSEMBLER) Neutrophil abs 17.4(H) 1.5 - 6.5 K/cumm Comment:Testing performed by : [address] [address] Imm gran abs 0.1 0.0 - 0.1 K/cumm NEEL Comment:Testing performed by : [address] [address] Lymphocyte abs 1.2 0.8 - 3.3 K/cumm NEEL Comment:Testing performed by : [address] [address] Monocyte abs 1.1(H) 0.2 - 0.8 K/cumm NEEL Comment:Testing performed by : [address] [address] Eosinophil abs 0.0 0.0 - 0.5 K/cumm [facility] Comment:Testing performed by : [address] [address] Basophil abs 0.1 0.0 - 0.1 K/cumm [facility] Comment:Testing performed by : [address] [address] Neutrophil pct 87.3 % [facility] Comment: Interpretive Data Percent cell count reference ranges are not reported, since discordance with absolute values may lead to misinterpretation of CBC data. Current Interpretive Data was last revised on 2017. Testing performed by: [address] [address] Imm gran pct 0.7 % [facility] Comment: Interpretive Data Percent cell count reference ranges are not reported, since discordance with absolute values may lead to misinterpretation of CBC data. Current Interpretive Data was last revised on 2017. Testing performed by: [address] [address] Lymphocyte pct 6.2 % [facility] Comment: Interpretive Data Percent cell count reference ranges are not reported, since discordance with absolute values may lead to misinterpretation of CBC data. Current Interpretive Data was last revised on 2017. Testing performed by: [address] [address] Monocyte pct 5.5 % [facility] Comment: Interpretive Data Percent cell count reference ranges are not reported, since discordance with absolute values may lead to misinterpretation of CBC data. Current Interpretive Data was last revised on 2017. Testing performed by: [address] [address] Eosinophil pct 0.0 % NEEL SMITH Comment: Interpretive Data Percent cell count reference ranges are not reported, since discordance with absolute values may lead to misinterpretation of CBC data. Current Interpretive Data was last revised on 2017. Testing performed by: [address] [address] Basophil pct 0.3 % NEEL SMITH Comment: Interpretive Data Percent cell count reference ranges are not reported, since discordance with absolute values may lead to misinterpretation of CBC data. Current Interpretive Data was last revised on 2017. Testing performed by: [address] [address] Blood 06/19/2024 6:56 PM [employer]ING MACHINE [employer]SEMBLER 06/19/2024 7:03 PM [employer]ING MACHINE ASSEMBLER us Terri Fuentes MD LAB BLOOD ORDERABLES Fin al Result NEEL [address] [place] [address] * (ABNORMAL) CBC with auto differential (06/19/2024 6:56 PM COPING MACHINE ASSEMBLER) WBC 20.0(H) 3.8 - 9.9 K/cumm Comment:Testing performed by : [address] [address] Hgb 13.8 13.0 - 17.5 g/dL NEEL SMITH Comment:Testing performed by : [address] [address] Hct 41.3 38.9 - 50.3 % NEEL SMITH Comment:Testing performed by : [address] [address] Plt 330 150 - 400 K/cumm NEEL SMITH Comment:Testing performed by : [address] [address] MPV 9.8 9.1 - 12.3 fL NEEL SMITH Comment:Testing performed by : [address] [address] RBC 5.02 4.30 - 5.80 M/cumm NEEL Comment:Testing performed by : [address] [address] MCV 82.3 81.3 - 96.4 fL NEEL Comment:Testing performed by : [address] [address] MCH 27.5 27.1 - 33.3 pg NEEL Comment:Testing performed by : [address] [address] MCHC 33.4 32.3 - 35.7 g/dL NEEL Comment:Testing performed by : [address], [address] RDW CV 15.8(H) 11.1 - 14.9 % NEEL Comment:Testing performed by : [address] [address] RDW SD 46.4 35.7 - 48.1 fL NEEL Comment:Testing performed by : [address] [address] NRBC abs 0.00 0.00 - 0.01 K/cumm NEEL Comment:Testing performed by : [address] [address] Blood Venous blood specimen / Unknown 06/19/2024 6:56 PM [employer]ING MACHINE ASSEMBLER 06/19/2024 7:03 PM COPING MACHINE ASSEMBLER Terri Fuentes MD LAB BLOOD ORDERABLES Fin al Result [facility] [address] [facility] Department of Laboratories [place], [place] [id number] * Lipase (06/19/2024 6:56 PM COPING MACHINE ASSEMBLER) Lipase 90 10 - 99 Units/L Comment:Testing performed by : [address] [address] Blood Venous blood specimen / Unknown 06/19/2024 6:56 PM [employer]ING MACHINE ASSEMBLER 06/19/2024 7:03 PM [employer]ING MACHINE ASSEMBLER us Terri Fuentes MD LAB BLOOD ORDERABLES Fin al Result NEEL [address] [facility] [place] [address] * Comprehensive metabolic panel (06/19/2024 6:56 PM [employer]ING MACHINE ASSEMBLER) Sodium 142 135 - 145 mmol/L Comment:Testing performed by : [address] [address] Potassium, pl 4.2 3.3 - 4.9 mmol/L NEEL Comment:Testing performed by : [address] [address] Chloride 106 97 - 110 mmol/L NEEL Comment:Testing performed by : [address] [address] CO2 22 22 - 32 mmol/L NEEL Comment:Testing performed by : [address] [address] Anion gap 14 2 - 15 mmol/L NEEL Comment:Testing performed by : [address] [address] BUN 15 6 - 25 mg/dL NEEL Comment:Testing performed by : [address] [address] Creatinine 0.97 0.80 - 1.30 mg/dL NEEL Comment:Testing performed by : [address] [address] Glucose 144 70 - 199 mg/dL NEEL [...] was last revised 2022. Testing performed by: [address] [address] Calcium 9.9 8.5 - 10.3 mg/dL NEEL Comment:Testing performed by : [address] [address] Bilirubin, total 0.4 0.1 - 1.2 mg/dL NEEL Comment:Testing performed by : [address] [address] Protein, pl 7.4 6.5 - 8.5 g/dL NEEL Comment:Testing performed by : [address], [place]., [address] Albumin 4.5 3.5 - 5.0 g/dL NEEL Comment:Testing performed by : [address] [address] Alk phos 92 40 - 130 Units/L NEEL Comment:Testing performed by : [address] [address] ALT 26 7 - 55 Units/L [facility] Comment:Testing performed by : [address] [address] AST 25 10 - 50 Units/L [facility] Comment:Testing performed by : [address] [address] Blood 06/19/2024 6:56 PM [employer]ING MACHINE ASSEMBLER 06/19/2024 7:03 PM [employer]ING MACHINE ASSEMBLER Terri Fuentes MD LAB BLOOD ORDERABLES Fin al Result NEEL [address] [facility] Department [place] [address] * (ABNORMAL) Drugs of Abuse Screen, Urine without Confirmation (05/20/2024 7:37 PM COPING MACHINE ASSEMBLER) [facility] Amphetamine, ur Not Detected CutOff 500ng/mL Comment: Interpretive Data - Amphetamines: Samples containing greater than 500 ng/mL d-methamphetamine or other cross-reacting amphetamine compounds are reported as positive. Amphetamine immunoassays are subject to significant false positive rates due to cross-reactivity of non-amphetamine drugs. Confirmatory testing required for definitive results. Current Interpretive Data was last reviewed 2022. Barbiturates, ur Not Detected CutOff 200ng/mL [facility] Comment: Interpretive Data - Barbiturates: Samples containing greater than 200 ng/mL secobarbital or other cross-reacting barbiturate compounds are reported as positive. False positive and false negative results are possible. Confirmatory testing required for definitive results. Current Interpretive Data was last reviewed 2022. Benzodiazepines, ur Not Detected CutOff 100ng/mL [facility] Comment: Interpretive Data - Benzodiazepines: Samples containing greater than 100 ng/mL nordiazepam or other cross-reacting compounds are reported as positive. False positive and false negative results are possible. Confirmatory testing required for definitive results. Current Interpretive Data was last reviewed 2022. Cannabinoids, ur Screen Positive, presumptive (A) CutOff 50 ng/mL [facility] Comment: Interpretive Data - Cannabinoids: Samples containing greater than 50 ng/mL delta-9 THC -COOH or other cross- reacting compounds are reported as positive. False positive and false negative results are possible. Confirmatory testing required for definitive results. Current Interpretive Data was last reviewed 2022. Cocaine, ur Not Detected CutOff 150ng/mL [facility] Comment: Interpretive Data - Cocaine: Samples containing greater than 150 ng/mL benzoylecgonine or other cross- reacting compounds are reported as positive. False positive and false negative results are possible. Confirmatory testing required for definitive results. Current Interpretive Data was last reviewed 2022. Fentanyl, Ur Not Detected CutOff 5 ng/mL [facility] Comment: Interpretive Data - Fentanyl: Samples containing greater than 5 ng/mL norfentanyl, fentanyl, or other cross-reacting fentanyl compounds are reported as positive. False positive and false negative results are possible. Confirmatory testing required for definitive results. Current Interpretive Data was last reviewed 2023. Methadone, ur Not Detected CutOff 300ng/mL [facility] Comment: Interpretive Data - Methadone: Samples containing greater than 300 ng/mL d,l-methadone or other cross-reacting compounds are reported as positive. False positive and false negative results are possible. Confirmatory testing required for definitive results. Current Interpretive Data was last reviewed 2022. Opiates, ur Not Detected CutOff 300ng/mL [facility] Comment: Interpretive Data - Opiates: Samples containing [...] Phencyclidine, ur Not Detected CutOff 25 ng/mL [facility] Comment: Interpretive Data - Phencyclidine: Samples containing [...] revised on 2017. Urine 05/20/2024 7:37 PM [employer]ING MACHINE ASSEMBLER 05/20/2024 7:40 PM COPING MACHINE ASSEMBLER Narrative [facility] - 05/20/2024 8:04 PM [employer]ING MACHINE ASSEMBLER Drug of Abuse screening is performed by immunoassay for medical purposes only. This is not to be used for Pain Management purposes. Kelly LAWTON LAB URINE ORDERABLES F inal Result [facility] [address] [facility] Department [place] [address] * CT Abdomen Pelvis W Contrast (05/20/2024 5:56 PM COPING MACHINE ASSEMBLER) Anatomical Region Laterality Modality Body N/A Computed Tomogra phy 05/20/2024 6:54 PM COPING MACHINE ASSEMBLER Narrative 05/20/2024 7:00 PM COPING MACHINE ASSEMBLER EXAM DESCRIPTION: CT ABDOMEN PELVIS W CONTRAST REASON FOR STUDY: Abdominal pain, acute, nonlocalized Pt c/o abdominal pain [id number] with NV. Hx: cholecystectomy TECHNIQUE: CT scan [...] Francisco Jesus M.D. KT T: Report ID: [id number] Reading Location: [id number] Procedure Note Jose Francisco Jesus MD - 05/20/2024 EXAM DESCRIPTION: CT ABDOMEN PELVIS W CONTRAST REASON FOR STUDY: Abdominal pain, acute, nonlocalized Pt c/o abdominal pain [id number] with NV. Hx: cholecystectomy TECHNIQUE: CT scan [...] Francisco Jesus M.D. KT T: Report ID: [id number] Reading Location: [id number] Kelly LAWTON IMG CT PROCEDURES Renee l Result * Sepsis Lactate w/ Reflex (05/20/2024 5:16 PM COPING MACHINE ASSEMBLER) Pathologist [facility] Sepsis Lactate 1.5 0.7 - 2.0 mmol/L Blood 05/20/2024 5:16 PM [employer]ING MACHINE ASSEMBLER 05/20/2024 5:18 PM COPING MACHINE ASSEMBLER Kelly LAWTON LAB BLOOD ORDERABLES F inal Result NEEL EB [address] [facility] Department [place] [address] * eGFR (05/20/2024 4:03 PM COPING MACHINE ASSEMBLER) Pathologist [facility] eGFR >90 >=60 mL/min/1. 73 [...] last reviewed 2021. Blood 05/20/2024 4:03 PM COPING MACHINE ASSEMBLER 05/20/2024 4:07 PM COPING MACHINE ASSEMBLER Freddy Bell MD LAB BLOOD ORDERABLES Final Result [facility] [address] [facility] Department [place] [address] * (ABNORMAL) Differential, auto (05/20/2024 4:03 PM COPING MACHINE ASSEMBLER) Pathologist [facility] Neutrophil abs 15.0(H) 1.5 - 6.5 K/cumm Imm gran abs 0.1 0.0 - 0.1 K/cumm [facility] Lymphocyte abs 3.1 0.8 - 3.3 K/cumm [facility] Monocyte abs 1.6(H) 0.2 - 0.8 K/cumm [facility] Eosinophil abs 0.2 0.0 - 0.5 K/cumm [facility] Basophil abs 0.1 0.0 - 0.1 K/cumm [facility] Neutrophil pct 74.9 % [facility] Comment: Interpretive Data Percent cell count reference ranges are not reported, since discordance with absolute values may lead to misinterpretation of CBC data. Current Interpretive Data was last revised on 2017. Imm gran pct 0.5 % [facility] Comment: Interpretive Data Percent cell count reference ranges are not reported, since discordance with absolute values may lead to misinterpretation of CBC data. Current Interpretive Data was last revised on 2017. Lymphocyte pct 15.3 % [facility] Comment: Interpretive Data Percent cell count reference ranges are not reported, since discordance with absolute values may lead to misinterpretation of CBC data. Current Interpretive Data was last revised on 2017. Monocyte pct 7.8 % [facility] Comment: Interpretive Data Percent cell count reference ranges are not reported, since discordance with absolute values may lead to misinterpretation of CBC data. Current Interpretive Data was last revised on 2017. Eosinophil pct 1.1 % [facility] Comment: Interpretive Data Percent cell count reference ranges are not reported, since discordance with absolute values may lead to misinterpretation of CBC data. Current Interpretive Data was last revised on 2017. Basophil pct 0.4 % [facility] Comment: Interpretive Data Percent cell count reference ranges are not reported, since discordance with absolute values may lead to misinterpretation of CBC data. Current Interpretive Data was last revised on 2017. Blood 05/20/2024 4:03 PM COPING MACHINE ASSEMBLER 05/20/2024 4:07 PM COPING MACHINE ASSEMBLER us Freddy Bell MD LAB BLOOD ORDERABLES Final Result [facility] [address] [facility] [place] [address] * (ABNORMAL) Urinalysis reflex to microscopic and culture Urine (05/20/2024 4:03 PM COPING MACHINE ASSEMBLER) Color, ur Yellow Yellow Clarity, ur Cloudy(A) Clear [facility] Specific gravity, ur 1.021 1.003 - 1.030 [facility] pH, urine 6.5 [facility] Comment: Interpretive Data U rine pH is affected by diet, medications, systemic acid-base disturbances, and renal tubular function. pH may affect urinary stone formation. For example, urine pH below 6.0 may help reduce the tendency for calcium phosphate stones and pH greater than 6.0 may reduce the tendency for uric acid stone formation. Source: [facility] [employer] Current Interpretive Data was last revised on 2017 Protein, ur ql Negative Negative [facility] Glucose, ur ql Negative Negative [facility] Ketones, ur Negative Negative [facility] Bilirubin, ur Negative Negative [facility] Blood, ur Negative Negative [facility] Urobilinogen, ur <2.0 <2.0 mg/dL [facility] Nitrite, ur Negative Negative [facility] Leukocyte esterase, ur Negative Negative [facility] UA reflex comment Reflex conditions for microscopic UA and culture not met. [facility] Urine 05/20/2024 4:03 PM COPING MACHINE ASSEMBLER 05/20/2024 4:07 PM COPING MACHINE ASSEMBLER Freddy Bell MD LAB MICROBIOLOGY - GENERAL ORDERABLES Final Result Performing Organization Address City/[facility] Co de Phone Number [facility] [address] [facility] [place] [address] * (ABNORMAL) CBC with auto differential (05/20/2024 4:03 PM COPING MACHINE ASSEMBLER) WBC 20.1(H) 3.8 - 9.9 K/cumm Hgb 14.2 13.0 - 17.5 g/dL [facility] Hct 43.4 38.9 - 50.3 % [facility] Plt 327 150 - 400 K/cumm [facility] MPV 9.9 9.1 - 12.3 fL [facility] RBC 5.20 4.30 - 5.80 M/cumm [facility] MCV 83.5 81.3 - 96.4 fL [facility] MCH 27.3 27.1 - 33.3 pg [facility] MCHC 32.7 32.3 - 35.7 g/dL [facility] RDW CV 15.9(H) 11.1 - 14.9 % [facility] RDW SD 47.5 35.7 - 48.1 fL [facility] NRBC abs 0.00 0.00 - 0.01 K/cumm [facility] Blood Venous blood specimen / Unknown 05/20/2024 4:03 PM COPING MACHINE ASSEMBLER 05/20/2024 4:07 PM COPING MACHINE ASSEMBLER Freddy Bell MD LAB BLOOD ORDERABLES Final Result [place] [id number] [facility] [place] [address] * Lipase (05/20/2024 4:03 PM COPING MACHINE ASSEMBLER) [facility] Lipase 34 10 - 99 Units/L Blood Venous blood specimen / Unknown 05/20/2024 4:03 PM COPING MACHINE ASSEMBLER 05/20/2024 4:07 PM COPING MACHINE ASSEMBLER Freddy Bell MD LAB BLOOD ORDERABLES Final Result Performing Organization Address [facility] Co de Phone Number [place] [id number] [place] [address] * Comprehensive metabolic panel (05/20/2024 4:03 PM COPING MACHINE ASSEMBLER) [facility] Sodium 142 135 - 145 mmol/L Potassium, pl 3.6 3.3 - 4.9 mmol/L [facility] Chloride 105 97 - 110 mmol/L [facility] CO2 24 22 - 32 mmol/L [facility] Anion gap 13 2 - 15 mmol/L [facility] BUN 12 6 - 25 mg/dL [facility] Creatinine 1.00 0.80 - 1.30 mg/dL [facility] Glucose 101 70 - 199 mg/dL [facility] Comment: Interpretive Data Fasting glucose >/= 126 [...] 2022. Calcium 10.1 8.5 - 10.3 mg/dL [facility] Bilirubin, total 0.3 0.1 - 1.2 mg/dL [facility] Protein, pl 7.3 6.5 - 8.5 g/dL [facility] Albumin 4.5 3.5 - 5.0 g/dL [facility] Alk phos 97 40 - 130 Units/L [facility] ALT 22 7 - 55 Units/L [facility] AST 24 10 - 50 Units/L [facility] Blood 05/20/2024 4:03 PM COPING MACHINE ASSEMBLER 05/20/2024 4:07 PM COPING MACHINE ASSEMBLER us Freddy Bell MD LAB BLOOD ORDERABLES Final Result NEEL [address] [facility] [place] [address] from Last 3 Months Insurance [facility] [place] [address] [facility] Advance Directives For more information, please contact: [phone] * Full Code (Latest Code Status on [...] 11:23 AM 02/10/2022 10:36 PM Care Teams Associate Professor Of Media [employer] Relationship Specialty Start Date End Date Td Lopez MD [facility] [address] PCP - General Family Medicine 11/09/20 Angie Woodard MD [facility] [place] [address] Consulting Physician Gastroenterology 07/17/21 Vimal Woodruff MD [address] [place] [address] Consulting Physician Gastroenterology 02/10/22
--- OUTSIDE RECORDS SUMMARY | 2024-08-05 20:57 | XMS_ITS | Clinical Summary ---
Author Organization [facility] Address [address] [place] [address] Care Team Providers Care Bolter Helper Name Role Phone Td Lopez MD Primary Care Provider + Angie Woodard MD Unavailable Vimal Woodruff MD Unavailable [phone] Allergies Active Allergy Reactions Criticality Noted Date [...] 03/25/2024 Assessment & Plan (03/25/2024 11:50 AM SAUSAGE MAKER): - suspect just muscle strain - will check xray - offered PT but pt refused. Acute pancreatitis without i nfection or necrosis, unspecified pancreatitis type 11/15/2023 Protein-calorie malnutrition, moderate Abdominal pain, generalized 09/19/2023 Assessment & Plan (09/25/2023 12:23 PM CDT): - improving - will give small amount of norco until pt heals from his procedure - f/u with GI Current use of half-way anticoagulation 023 Assessment & Plan (09/25/2023 12:23 PM CDT): - stable - continue eliquis Assessment & Plan (03/20/2023 11:08 AM SAUSAGE MAKER): - restart eliquis due to life long need for anticoagulation History of thrombosis 03/20/2023 Assessment & Plan (09/25/2023 12:22 PM CDT): - stable - continue eliquis Assessment & Plan (03/20/2023 11:08 AM SAUSAGE MAKER): - restart eliquis due to life long [...] famotidine Assessment & Plan (03/20/2023 11:08 AM SAUSAGE MAKER): - stable - continue current medication Renal [...] eval. Assessment & Plan (03/25/2024 11:49 AM SAUSAGE MAKER): - ref to derm for eval Drug [...] pain Assessment & Plan (03/25/2024 11:49 AM SAUSAGE MAKER): - poor control - continue hyosciamine, famotidine, zofran - ref to GI for continued treatment Assessment & Plan (03/20/2023 11:07 AM SAUSAGE MAKER): - stable - continue current medication Duodenal [...] medication Assessment & Plan (07/15/2019 11:44 AM SAUSAGE MAKER): - stable - continue creon Annual physical [...] able Assessment & Plan (07/15/2019 11:46 AM SAUSAGE MAKER): - encourage healthy diet, exercise - check labs - encouraged quitting smoking 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 Assessment & Plan (07/15/2019 11:37 AM SAUSAGE MAKER): - encouraged pt to quit smoking Abdominal [...] GI Assessment & Plan (03/20/2023 11:07 AM SAUSAGE MAKER): - stable - continue current medication per [...] 09/17/202209/08 Assessment & Plan (03/20/2023 11:08 AM SAUSAGE MAKER): - stable off meds - will monitor [...] 09/25/2023 Assessment & Plan (03/26/2021 11:41 AM SAUSAGE MAKER): - stable today - continue current medications [...] lexapro Assessment & Plan (07/15/2019 11:38 AM SAUSAGE MAKER): - stable - continue current plan Gastroesophageal reflux dise ase without esophagitis 07/15/2019 03/18/2023 Overview (07/15/2019): - GERD managed by Dr Woodard - Pt on omeprazole and carafate for sx control Assessment & Plan (01/01/2021 12:09 PM CDT): - stable - continue current medication Assessment & Plan (02/07/2020 2:32 PM CDT): - stable - continue current medication Assessment & Plan (07/15/2019 11:38 AM SAUSAGE MAKER): - stable - continue omeprazole and carafate [...] prn Assessment & Plan (07/15/2019 11:44 AM SAUSAGE MAKER): - stable - continue bentyl and amitriptyline per GI recs Viral illness 07/08/2019 02/12/2021 Assessment & Plan (07/09/2019 9:12 AM SAUSAGE MAKER): Medrol Dosepak as directed. Recommended Mucinex plain [...] (09/17/2018): Added automatically from request for surgery [id number] Assessment & Plan (02/12/2021 11:23 AM CDT): - encouraged pt to f/u with new GI - continue hyoscyamine Assessment & Plan (01/01/2021 12:10 PM CDT): - continue prn oxycodone for now - discussed need to wean off of this as this is not a viable half-way solution - will ref to pain management [...] medication Assessment & Plan (07/15/2019 11:36 AM SAUSAGE MAKER): - controlled - continue current plan Chronic [...] Care Team Description 08/04/2024 [facility] [address] [address] Alannah Baumann MA 08/03/2024 2:13 PM CDT - 08/03/2024 3:27 PM CDT Emergency [facility] Emergency Department [address] [place] [phone] Freddy Yao DO Chronic abdominal pain (Primary Dx); Drug-seeking behavior Discharge Disposition: Discharge to home or self care 08/03/2024 [facility] [address] [address] Alannah Baumann MA 08/02/2024 8:48 AM CDT - 08/02/2024 10:46 AM CDT Emergency [facility] Emergency Department [address] [place] [address] Chronic abdominal pain (Primary Dx) Discharge Disposition: Discharge to home or self care 07/01/2024 [facility] [address] [address] Alannah Baumann MA 06/30/2024 [facility] [address] [address] Alannah Baumann MA 06/29/2024 [facility] Outreach [address] [address] Alannah Baumann MA 06/27/2024 9:01 AM SAUSAGE MAKER - 06/27/2024 12:15 PM SAUSAGE MAKER Emergency [facility] Emergency Department [address] [place] [address] Bernard Bruce MD Chronic pancreatitis, unspecified pancreatitis type (HCC) (Primary Dx) Discharge Disposition: Discharge to home or self care 06/19/2024 7:49 PM SAUSAGE MAKER - 06/19/2024 11:01 PM [facility] Emergency [facility] Emergency Department [address] [place] [address] Terri Fuentes MD Chronic abdominal pain (Primary Dx); Nausea and vomiting, unspecified vomiting type; Leukocytosis, unspecified type Discharge Disposition: Discharge to home or self care 05/30/2024 Documentation [facility] Medical Office Bl 1 OP Physical Therapy [address] [place] [address] Clem Traylor, BRICK YARD HAND No Show 05/26/2024 7:15 AM [facility] Medical Office [facility] 1 OP Physical Therapy [address] [place] [phone] Nelda Perez, PT Neck pain (Primary Dx) 05/26/2024 7:00 AM [facility] Medical Office [facility] 1 OP Physical Therapy [address] [place] [address] Yuliya Fernández, BRICK YARD HAND Neck pain (Primary Dx) 05/20/2024 4:35 PM SAUSAGE MAKER - 05/20/2024 9:[address] [address] Abdominal pain (Primary Dx) Discharge Disposition: Discharge to home or self care 05/19/2024 12:45 PM [facility] Medical Office [facility] 1 OP Physical Therapy [address] [place] [address] Clem Traylor, BRICK YARD HAND Neck pain (Primary Dx) 05/12/2024 7:45 AM [facility] Medical Office [facility] 1 OP Physical Therapy [address] [place] [address] Clem Traylor, BRICK YARD HAND Neck pain (Primary Dx) from Last 3 [...] drink = 0.6 oz pur e alcohol) [facility] [employer] Answer Date Recorded In the past 12 months has [employer], gas, oil, or water [employer] threatened to shut off services in your [...] 09/21/2023 How often do you attend chur Testlio or hoahaoism services? Never 09/21/2023 Do you belong to any clubs o r organizations such as tenriism groups, unions, fraternal or athletic groups, or [...] in a senior living (including now)? No 09/21/2023 PHQ-9 Answer Date Recorded PHQ-9 Total Score 5 03/25/2024 Personal Safety Answer Date Recorded Have you ever been in or are you currently in a harmful physical or emotional relationship or is someone making you feel afraid or unsafe? Denies 08/03/2024 Sex and Gender Information Value Date Recorded Sex Assigned at Not on file Legal Sex Male 3:38 AM SAUSAGE MAKER Gender Identity Not on file Sexual Orientation [...] Vaccines Discontinued Medical Devices Explanted Type Area Brokerage Manager Device Identifier Shelf Expiration Date Model / Serial / Lot [employer] 6572 Connell Flexi-Stent 7fr 5cm Small Pigtail Flexible .035in Stent - [id number] Implanted:Qty: 1 on 09/18/2018 by Vimal Woodruff MD at [facility] Explanted:Qty: 1 on 09/20/2018 at [facility] Stent N/A: Pancreas [employer] 06/10/2023 [id number] / / [id number] Conmed Gina [id number] [place] Viabil 10mm 8.5fr 6cm 200cm Fully Covered Self Expand Pull - [id number] - [id number] Implanted:Qty: 1 on 09/18/2018 by Vimal Woodruff MD at [facility] Explanted:Qty: 1 on 09/20/2018 at [facility] Stent N/A: Bile Duct Conmed Gina 06/29/2021 [id number] / [id number] / [employer] Connell Flexi-Stent 7fr 9cm Small Pigtail Flexible .035in Stent 6575 - [id number] Implanted:Qty: 1 on 02/07/2022 by Vimal Woodruff MD at [facility] Explanted:Qty: 1 on 02/10/2022 by Vimal Woodruff MD at [facility] Stent N/A: Pancreas [employer] 09/07/2026 [id number] / / [id number] [employer] Gina Wallflex 10mm X 60mm Fully Covered Biliary [id number] - [id number] Implanted:Qty: 1 on 02/07/2022 by Vimal Woodruff MD at [facility] Explanted:Qty: 1 on 02/10/2022 by Vimal Woodruff MD at [facility] Stent N/A: Bile Duct [employer] Gina 11/04/2023 [id number] / / [id number] [employer] Connell Flexi-Stent 7fr 9cm Small Pigtail Flexible .035in Stent 6575 - [id number] Implanted:Qty: 1 on 09/21/2023 by Vimal Woodruff MD at [facility] Explanted:Qty: 1 on 09/23/2023 by Vimal Woodruff MD at [facility] Stent N/A: Pancreas [employer] 03/11/2028 [id number] / / [id number] Description:Not present at eginning of case. Self migrated out [employer] Gina Wallflex 10mm X 60mm Fully Covered Biliary [id number] - [id number] Implanted:Qty: 1 on 09/21/2023 by Vimal Woodruff MD at [facility] Explanted:Qty: 1 on 09/23/2023 by Vimal Woodruff MD at [facility] Stent N/A: Bile Duct [employer] Gina 08/02/2025 [id number] / / [id number] Procedures Procedure Name Priority Date/Time Associated Diagnosis [...] T HIGH-SENSITIVITY 4-HR Timed 06/27/2024 11:44 AM SAUSAGE MAKER ECG 12-LEAD STAT 06/27/2024 9:[address] ABDOMEN PELVIS W CONTRAST ED 06/27/2024 9:42 AM SAUSAGE MAKER ETHANOL STAT 06/27/2024 7:53 AM SAUSAGE MAKER TROPONIN T HIGH-SENSITIVITY SERIES (BASELINE, 2HR, 4HR, 6HR) STAT 06/27/2024 7:53 AM SAUSAGE MAKER EGFR STAT 06/27/2024 7:53 AM SAUSAGE MAKER DIFFERENTIAL AUTO STAT 06/27/2024 7:5 3 AM SAUSAGE MAKER LIPASE STAT 06/27/2024 7:53 AM SAUSAGE MAKER COMPREHENSIVE METABOLIC PANEL STAT 06/27/2024 7:53 AM SAUSAGE MAKER CBC WITH AUTO DIFFERENTIAL STAT 06/27/2024 7:53 AM SAUSAGE MAKER URINALYSIS, MICROSCOPIC ONLY STAT 06/19/2024 7:06 PM SAUSAGE MAKER URINALYSIS AND REFLEX TO MICROSCOPIC AND CULTURE STAT 06/19/2024 7:06 PM SAUSAGE MAKER ECG 12-LEAD STAT 06/19/2024 7:04 PM SAUSAGE MAKER EGFR STAT 06/19/2024 6:56 PM SAUSAGE MAKER DIFFERENTIAL AUTO STAT 06/19/2024 6:5 6 PM SAUSAGE MAKER TROPONIN T HIGH-SENSITIVITY SERIES (BASELINE, 2HR, 4HR, 6HR) STAT 06/19/2024 6:56 PM SAUSAGE MAKER LIPASE STAT 06/19/2024 6:56 PM SAUSAGE MAKER COMPREHENSIVE METABOLIC PANEL STAT 06/19/2024 6:56 PM SAUSAGE MAKER CBC WITH AUTO DIFFERENTIAL STAT 06/19/2024 6:56 PM SAUSAGE MAKER DRUGS OF ABUSE SCREEN, URINE WITHOUT CONFIRMATION STAT 05/20/2024 7:[address] ABDOMEN PELVIS W CONTRAST ED 05/20/2024 5:56 PM SAUSAGE MAKER SEPSIS LACTATE WITH REFLEX STAT 05/20/2024 5:16 PM SAUSAGE MAKER EGFR STAT 05/20/2024 4:03 PM SAUSAGE MAKER DIFFERENTIAL AUTO STAT 05/20/2024 4:0 3 PM SAUSAGE MAKER LIPASE STAT 05/20/2024 4:03 PM SAUSAGE MAKER COMPREHENSIVE METABOLIC PANEL STAT 05/20/2024 4:03 PM SAUSAGE MAKER CBC WITH AUTO DIFFERENTIAL STAT 05/20/2024 4:03 PM SAUSAGE MAKER URINALYSIS AND REFLEX TO MICROSCOPIC AND CULTURE STAT 05/20/2024 4:03 PM SAUSAGE MAKER from Last 3 Months Results * Urinalysis reflex to microscopic and culture Urine (08/03/2024 1:50 PM CDT) Color, ur Yellow Yellow Comment:Testing performed by : [facility], [address] [place] [address]., [address] Clarity, ur Clear Clear NEEL Comment:Testing performed by : [address] [address] Specific gravity, ur 1.009 1.003 - 1.030 NEEL Comment:Testing performed by : [address] [address] pH, urine 7.0 NEEL Comment: Interpretive Data U rine pH is affected by diet, medications, systemic acid-base disturbances, and renal tubular function. pH may affect urinary stone formation. For example, urine pH below 6.0 may help reduce the tendency for calcium phosphate stones and pH greater than 6.0 may reduce the tendency for uric acid stone formation. Source: [facility] [employer] Current Interpretive Data was last revised on 2017 Testing performed by: [facility], [address] [place] [address], [place]., [address] Protein, ur ql Negative Negative NEEL Comment:Testing performed by : [address], [place]., [address] Glucose, ur ql Negative Negative NEEL Comment:Testing performed by : [address], [place]., [address] Ketones, ur Negative Negative NEEL Comment:Testing performed by : [address], [place]., [address] Bilirubin, ur Negative Negative NEEL Comment:Testing performed by : [address], [place]., [address] Blood, ur Negative Negative NEEL Comment:Testing performed by : [address], [place]., [address] Urobilinogen, ur <2.0 <2.0 mg/dL NEEL Comment:Testing performed by : [address], [place]., [address] Nitrite, ur Negative Negative NEEL Comment:Testing performed by : [address], [place]., [address] Leukocyte esterase, ur Negative Negative NEEL Comment:Testing performed by : [address], [place]., [address] UA reflex comment Reflex conditions for microscopic UA and culture not met. NEEL Comment:Testing performed by : [address], [place]., [address] Urine 08/03/2024 1:50 PM CDT 08/03/2024 1:53 PM CDT us Freddy Yao DO LAB MICROBIOLOGY - GENERAL ORDERABLES Final Result NEEL SMITH [address] [facility] Department [place] [address] * eGFR (08/03/2024 1:45 PM CDT) [facility] eGFR >90 >=60 mL/min/1. 73 m2 [...] was last reviewed 2021. Testing performed by: [address] [address] Blood 08/03/2024 1:45 PM CDT 08/03/2024 1:53 PM CDT Freddy aYo DO LAB BLOOD ORDERABLES Final Result NEEL [address] [facility] Department [place] [address] * (ABNORMAL) Differential, auto (08/03/2024 1:45 PM CDT) [facility] Neutrophil abs 7.8(H) 1.5 - 6.5 K/cumm Comment:Testing performed by : [address] [address] Imm gran abs 0.1 0.0 - 0.1 K/cumm NEEL Comment:Testing performed by : [address] [address] Lymphocyte abs 2.5 0.8 - 3.3 K/cumm [facility] Comment:Testing performed by : [address] [address] Monocyte abs 1.4(H) 0.2 - 0.8 K/cumm [facility] Comment:Testing performed by : [address], [place]., [address] Eosinophil abs 0.1 0.0 - 0.5 K/cumm [facility] Comment:Testing performed by : [address], [place]., [address] Basophil abs 0.1 0.0 - 0.1 K/cumm [facility] Comment:Testing performed by : [address] [address] Neutrophil pct 65.5 % [facility] Comment: Interpretive Data Percent cell count reference ranges are not reported, since discordance with absolute values may lead to misinterpretation of CBC data. Current Interpretive Data was last revised on 2017. Testing performed by: [address] [address] Imm gran pct 0.5 % [facility] Comment: Interpretive Data Percent cell count reference ranges are not reported, since discordance with absolute values may lead to misinterpretation of CBC data. Current Interpretive Data was last revised on 2017. Testing performed by: [address] [address] Lymphocyte pct 21.0 % [facility] Comment: Interpretive Data Percent cell count reference ranges are not reported, since discordance with absolute values may lead to misinterpretation of CBC data. Current Interpretive Data was last revised on 2017. Testing performed by: [address] [address] Monocyte pct 11.6 % [facility] Comment: Interpretive Data Percent cell count reference ranges are not reported, since discordance with absolute values may lead to misinterpretation of CBC data. Current Interpretive Data was last revised on 2017. Testing performed by: [address] [address] Eosinophil pct 0.8 % [facility] Comment: Interpretive Data Percent cell count reference ranges are not reported, since discordance with absolute values may lead to misinterpretation of CBC data. Current Interpretive Data was last revised on 2017. Testing performed by: [address] [address] Basophil pct 0.6 % NEEL SMITH Comment: Interpretive Data Percent cell count reference ranges are not reported, since discordance with absolute values may lead to misinterpretation of CBC data. Current Interpretive Data was last revised on 2017. Testing performed by: [address] [address] Blood 08/03/2024 1:45 PM CDT 08/03/2024 1:53 PM CDT Freddy Yao DO LAB BLOOD ORDERABLES Final Result NEEL [address] [facility] Department [place] [address] * (ABNORMAL) CBC with auto differential (08/03/2024 1:45 PM CDT) WBC 11.9(H) 3.8 - 9.9 K/cumm Comment:Testing performed by : [address] [address] Hgb 13.3 13.0 - 17.5 g/dL NEEL SMITH Comment:Testing performed by : [address] [address] Hct 40.4 38.9 - 50.3 % NEEL SMITH Comment:Testing performed by : [address] [address] Plt 333 150 - 400 K/cumm NEEL SMITH Comment:Testing performed by : [address] [address] MPV 10.3 9.1 - 12.3 fL NEEL SMITH Comment:Testing performed by : [address] [address] RBC 4.81 4.30 - 5.80 M/cumm NEEL SMITH Comment:Testing performed by : [address] [address] MCV 84.0 81.3 - 96.4 fL NEEL SMITH Comment:Testing performed by : [address], [address] MCH 27.7 27.1 - 33.3 pg NEEL SMITH Comment:Testing performed by : [address] [address] MCHC 32.9 32.3 - 35.7 g/dL NEEL SMITH Comment:Testing performed by : [address], [address] RDW CV 16.4(H) 11.1 - 14.9 % NEEL Comment:Testing performed by : [address], [address] RDW SD 50.0(H) 35.7 - 48.1 fL NEEL SMITH Comment:Testing performed by : [address], [address] NRBC abs 0.00 0.00 - 0.01 K/cumm NEEL Comment:Testing performed by : [address], [address] Blood Venous blood specimen / Unknown 08/03/2024 1:45 PM CDT 08/03/2024 1:53 PM CDT Freddy Yao DO LAB BLOOD ORDERABLES Final Result Performing Organization Address City/[facility] Phone Number NEEL [address] [facility] Department of Laboratories [place], [place] [id number] * Lipase (08/03/2024 1:45 PM CDT) Lipase 58 10 - 99 Units/L Comment:Testing performed by : [address] [address] Blood Venous blood specimen / Unknown 08/03/2024 1:45 PM CDT 08/03/2024 1:53 PM CDT Freddy Yao DO LAB BLOOD ORDERABLES Final Result NEEL [address] [facility] Department [place] [address] * Comprehensive metabolic panel (08/03/2024 1:45 PM CDT) Sodium 142 135 - 145 mmol/L Comment:Testing performed by : [facility], [address] [place] [address]., [address] Potassium, pl 3.9 3.3 - 4.9 mmol/L NEEL Comment:Testing performed by : [address], [place]., [address] Chloride 108 97 - 110 mmol/L NEEL Comment:Testing performed by : [address], [place]., [address] CO2 23 22 - 32 mmol/L NEEL Comment:Testing performed by : [address], [place]., [address] Anion gap 11 2 - 15 mmol/L NEEL Comment:Testing performed by : [address] [address] BUN 9 6 - 25 mg/dL NEEL Comment:Testing performed by : [address] [address] Creatinine 0.90 0.80 - 1.30 mg/dL NEEL Comment:Testing performed by : [address] [address] Glucose 107 70 - 199 mg/dL NEEL [...] was last revised 2022. Testing performed by: [address] [address] Calcium 9.4 8.5 - 10.3 mg/dL NEEL Comment:Testing performed by : [facility], [address] [place] [address]., [address] Bilirubin, total 0.3 0.1 - 1.2 mg/dL NEEL Comment:Testing performed by : [address] [address] Protein, pl 7.1 6.5 - 8.5 g/dL NEEL Comment:Testing performed by : [address] [address] Albumin 4.3 3.5 - 5.0 g/dL NEEL Comment:Testing performed by : [address] [address] Alk phos 80 40 - 130 Units/L NEEL Comment:Testing performed by : [address] [address] ALT 23 7 - 55 Units/L NEEL Comment:Testing performed by : [address] [address] AST 32 10 - 50 Units/L NEEL Comment:Testing performed by : [address] [address] Blood 08/03/2024 1:45 PM CDT 08/03/2024 1:53 PM CDT us Freddy Yao DO LAB BLOOD ORDERABLES Final Result Performing Organization Address City/State/[facility] Co de Phone Number [facility] Department [place] [address] * CT Abdomen Pelvis W Contrast (08/02/2024 [...] Priti Salmeron M.D. TW: JENNA Report ID: [id number] Reading Location: [id number] Procedure Note Priti Salmeron MD - 08/02/2024 [...] Priti Salmeron M.D. TW: JENNA Report ID: [id number] Reading Location: [place] [address] Vijaya [facility] CT PROCEDURES Final Result * (ABNORMAL) Urinalysis reflex to microscopic and culture Urine (08/02/2024 8:48 AM CDT) Color, ur Yellow Yellow Comment:Testing performed by : [address] [address] Clarity, ur Clear Clear NEEL Comment:Testing performed by : [address] [address] Specific gravity, ur 1.025 1.003 - 1.030 NEEL Comment:Testing performed by : [address] [address] pH, urine 8.0 NEEL Comment: Interpretive Data U rine pH is affected by diet, medications, systemic acid-base disturbances, and renal tubular function. pH may affect urinary stone formation. For example, urine pH below 6.0 may help reduce the tendency for calcium phosphate stones and pH greater than 6.0 may reduce the tendency for uric acid stone formation. Source: [employer] Current Interpretive Data was last revised on 2017 Testing performed by: [address] [address] Protein, ur ql 1+(A) Negative NEEL Comment:Testing performed by : [address], [place]., [address] Glucose, ur ql Trace(A) Negative NEEL Comment:Testing performed by : [address], [place]., [address] Ketones, ur 2+(A) Negative NEEL Comment:Testing performed by : [address], [place]., [address] Bilirubin, ur Negative Negative NEEL Comment:Testing performed by : [address], [place]., [address] Blood, ur Negative Negative NEEL Comment:Testing performed by : [address], [place]., [address] Urobilinogen, ur <2.0 <2.0 mg/dL NEEL Comment:Testing performed by : [address] [address] Nitrite, ur Negative Negative NEEL Comment:Testing performed by : [address], [place]., [address] Leukocyte esterase, ur Negative Negative NEEL Comment:Testing performed by : [address] [address] UA reflex comment Reflex to microscopic UA will be performed. NEEL Comment:Testing performed by : [address] [address] Urine 08/02/2024 8:48 AM CDT 08/02/2024 8:54 AM CDT us Freddy Yao DO LAB MICROBIOLOGY - GENERAL ORDERABLES Final Result NEEL SMITH [address] [facility] Department [place] [address] * (ABNORMAL) Urinalysis, microscopic only (08/02/2024 8:48 AM CDT) WBC, ur 0-5 0 - 5 /HPF Comment:Testing performed by : [facility], [address] [place] [address]., [address] RBC, ur 0-2 0 - 2 /HPF NEEL SMITH Comment:Testing performed by : [address] [address] Epithelial cells, squamous, ur 1-5 0 - 5 /HPF NEEL SMITH Comment:Testing performed by : [address] [address] Mucous, ur Present(A) NEEL SMITH Comment:Testing performed by : [address] [address] Culture Reflex Comment Reflex conditions for urine culture (WBC >10) not met. NEEL Comment:Testing performed by : [address] [address] Urine 08/02/2024 8:48 AM CDT 08/02/2024 8:54 AM CDT Freddy Yao DO LAB URINE ORDERABLES Final Result NEEL [address] [facility] Department [place] [address] * eGFR (08/02/2024 8:43 AM CDT) eGFR [...] was last reviewed 2021. Testing performed by: [address] [address] Blood 08/02/2024 8:43 AM CDT 08/02/2024 8:53 AM CDT Freddy Yao DO LAB BLOOD ORDERABLES Final Result [facility] [address] [facility] Department [place] [address] * (ABNORMAL) Differential, auto (08/02/2024 8:43 AM CDT) Neutrophil abs 12.1(H) 1.5 - 6.5 K/cumm Comment:Testing performed by : [address] [address] Imm gran abs 0.1 0.0 - 0.1 K/cumm NEEL Comment:Testing performed by : [address] [address] Lymphocyte abs 0.9 0.8 - 3.3 K/cumm NEEL Comment:Testing performed by : [address] [address] Monocyte abs 0.7 0.2 - 0.8 K/cumm NELE Comment:Testing performed by : [address] [address] Eosinophil abs 0.0 0.0 - 0.5 K/cumm NEEL Comment:Testing performed by : [address] [address] Basophil abs 0.0 0.0 - 0.1 K/cumm NEEL Comment:Testing performed by : [address] [address] Neutrophil pct 88.2 % NEEL Comment: Interpretive Data Percent cell count reference ranges are not reported, since discordance with absolute values may lead to misinterpretation of CBC data. Current Interpretive Data was last revised on 2017. Testing performed by: [address] [address] Imm gran pct 0.4 % [facility] Comment: Interpretive Data Percent cell count reference ranges are not reported, since discordance with absolute values may lead to misinterpretation of CBC data. Current Interpretive Data was last revised on 2017. Testing performed by: [address] [address] Lymphocyte pct 6.6 % [facility] Comment: Interpretive Data Percent cell count reference ranges are not reported, since discordance with absolute values may lead to misinterpretation of CBC data. Current Interpretive Data was last revised on 2017. Testing performed by: [address] [address] Monocyte pct 4.7 % [facility] Comment: Interpretive Data Percent cell count reference ranges are not reported, since discordance with absolute values may lead to misinterpretation of CBC data. Current Interpretive Data was last revised on 2017. Testing performed by: [address] [address] Eosinophil pct 0.0 % [facility] Comment: Interpretive Data Percent cell count reference ranges are not reported, since discordance with absolute values may lead to misinterpretation of CBC data. Current Interpretive Data was last revised on 2017. Testing performed by: [address] [address] Basophil pct 0.1 % [facility] Comment: Interpretive Data Percent cell count reference ranges are not reported, since discordance with absolute values may lead to misinterpretation of CBC data. Current Interpretive Data was last revised on 2017. Testing performed by: [address] [address] Blood 08/02/2024 8:43 AM CDT 08/02/2024 8:53 AM CDT us Freddy Yao DO LAB BLOOD ORDERABLES Final Result NEEL [address] [facility] Department of Laboratories [place], [place] [id number] * (ABNORMAL) CBC with auto differential (08/02/2024 8:43 AM CDT) [facility] WBC 13.7(H) 3.8 - 9.9 K/cumm Comment:Testing performed by : [address] [address] Hgb 12.9(L) 13.0 - 17.5 g/dL NEEL Comment:Testing performed by : [address] [address] Hct 38.3(L) 38.9 - 50.3 % NEEL Comment:Testing performed by : [address] [address] Plt 310 150 - 400 K/cumm NEEL Comment:Testing performed by : [address] [address] MPV 9.9 9.1 - 12.3 fL NEEL Comment:Testing performed by : [address], [address] RBC 4.63 4.30 - 5.80 M/cumm NEEL Comment:Testing performed by : [address] [address] MCV 82.7 81.3 - 96.4 fL NEEL Comment:Testing performed by : [address], [address] MCH 27.9 27.1 - 33.3 pg NEEL Comment:Testing performed by : [address], [address] MCHC 33.7 32.3 - 35.7 g/dL NEEL Comment:Testing performed by : [address], [address] RDW CV 15.9(H) 11.1 - 14.9 % NEEL Comment:Testing performed by : [address], [address] RDW SD 48.1 35.7 - 48.1 fL NEEL Comment:Testing performed by : [address] [address] NRBC abs 0.00 0.00 - 0.01 K/cumm NEEL Comment:Testing performed by : [address] [address] Blood Venous blood specimen / Unknown 08/02/2024 8:43 AM CDT 08/02/2024 8:53 AM CDT Freddy Yao LAB BLOOD ORDERABLES Final Result Performing Organization Address City/[facility] Co de Phone Number QUINT[address] [employer] [place] [address] * Lipase (08/02/2024 8:43 AM CDT) Pathologist [facility] Lipase 28 10 - 99 Units/L Comment:Testing performed by : [address] [address] Blood Venous blood specimen / Unknown 08/02/2024 8:43 AM CDT 08/02/2024 8:53 AM CDT Freddy Yao LAB BLOOD ORDERABLES Final Result Performing Organization Address [facility] de Phone Number [address] [address] * Comprehensive metabolic panel (08/02/2024 8:43 AM CDT) Sodium 143 135 - 145 mmol/L Comment:Testing performed by : [address] [address] Potassium, pl 3.9 3.3 - 4.9 mmol/L NEEL Comment:Testing performed by : [address] [address] Chloride 107 97 - 110 mmol/L NEEL Comment:Testing performed by : [address] [address] CO2 22 22 - 32 mmol/L NEEL Comment:Testing performed by : [address] [address] Anion gap 14 2 - 15 mmol/L NEEL Comment:Testing performed by : [address] [address] BUN 9 6 - 25 mg/dL [facility] Comment:Testing performed by : [address] [address] Creatinine 0.90 0.80 - 1.30 mg/dL NEEL Comment:Testing performed by : [address] [address] Glucose 161 70 - 199 mg/dL [facility] Comment: Interpretive Data Fasting glucose [...] was last revised 2022. Testing performed by: [address] [address] Calcium 9.0 8.5 - 10.3 mg/dL [facility] Comment:Testing performed by : [address] [address] Bilirubin, total 0.5 0.1 - 1.2 mg/dL [facility] Comment:Testing performed by : [address] [address] Protein, pl 7.1 6.5 - 8.5 g/dL [facility] Comment:Testing performed by : [address] [address] Albumin 4.3 3.5 - 5.0 g/dL [facility] Comment:Testing performed by : [address] [address] Alk phos 81 40 - 130 Units/L NEEL Comment:Testing performed by : [address] [address] ALT 20 7 - 55 Units/L [facility] Comment:Testing performed by : [address] [address] AST 26 10 - 50 Units/L NEEL Comment:Testing performed by : [address] [address] Blood 08/02/2024 8:43 AM CDT 08/02/2024 8:53 AM CDT Freddy Yao DO LAB BLOOD ORDERABLES Final Result Performing Organization Address City/[facility] Co de Phone Number NEEL [address] [employer] [place] [address] * Troponin T high-sensitivity 4-hour (06/27/2024 11:44 AM SAUSAGE MAKER) Pathologist [facility] Trop T hs <6 <=22 ng/L Comment: Interpretive Data For further hscTnT resources including the diagnostic algorithm and an aid in interpretation, copy and paste this link: https://nrl.testcatalog.org/show/hsTrop Current Interpretive Data last revised 2020. Testing performed by: [address] [address] Trop T hs delta 0 ng/L NEEL Comment:Testing performed by : [address] [address] Trop T hs interp Insignificant NEEL Comment:Testing performed by : [address] [address] Blood 06/27/2024 11:4 4 AM SAUSAGE MAKER 06/27/2024 11:47 AM SAUSAGE MAKER us Bernard Bruce MD LAB BLOOD ORDERABLES Final Resul t Performing Organization Address City/[facility]/ZIP Co de Phone Number [facility] [address] [facility] [employer] [place] [address] * ECG 12 lead (06/27/2024 9:54 AM SAUSAGE MAKER) Ventricular Rate EKG/Min 74 BPM [facility] Atrial Rate 74 BPM [facility] WY-Interval (MSEC) 120 ms [facility] QRS-Interval (MSEC) 100 ms [facility] QT-Interval (MSEC) 394 ms [facility] QTc 437 ms [facility] P Ilion 37 degrees [facility] R Ilion 12 degrees [facility] T Ilion 29 degrees [facility] Diagnosis Normal sinus rhythm Normal ECG When compared with ECG of 19-JUN-2024 19:04, No significant change was found Confirmed by PRINCESS BAE M.D. ([id number]) on 06/28/2024 11:26:58 PM [facility] 06/27/2024 9:54 AM SAUSAGE MAKER 06/28/2024 11:26 PM SAUSAGE MAKER us Bernard Bruce MD ECG ORDERABLES Final Result [facility] * CT Abdomen Pelvis W Contrast (06/27/2024 9:42 AM SAUSAGE MAKER) Anatomical Region Laterality Modality Body N/A Computed Tomogra phy 06/27/2024 10:1 8 AM SAUSAGE MAKER Narrative 06/27/2024 10:30 AM SAUSAGE MAKER EXAM DESCRIPTION: CT ABDOMEN PELVIS W CONTRAST [...] Jake Don M.D. LB: LB Report ID: [id number] Reading Location: [id number] Procedure Note Jake Don MD - 06/27/2024 [...] Jake Don M.D. LB: [place] Report ID: [id number] Reading Location: [id number] us Bernard Bruce MD IMG CT PROCEDURES Final Result * Troponin T high-sensitivity series (baseline, 2hr, 4hr, 6hr) (06/27/2024 7:53 AM SAUSAGE MAKER) Trop T hs <6 <=22 ng/L Comment: Interpretive Data For further hscTnT resources including the diagnostic algorithm and an aid in interpretation, copy and paste this link: https://nrl.testcatalog.org/show/hsTrop Current Interpretive Data last revised 2020. Testing performed by: [facility], [address] [place] [address]., [address] Blood 06/27/2024 7:53 AM SAUSAGE MAKER 06/27/2024 7:55 AM SAUSAGE MAKER us Bernard Bruce MD LAB BLOOD ORDERABLES Edited Resu lt - Final [facility] [address] [facility] Department [place] [address] * eGFR (06/27/2024 7:53 AM SAUSAGE MAKER) eGFR 85 >=60 mL/min/1. 73 m2 Comment: [...] was last reviewed 2021. Testing performed by: [address] [address] Blood 06/27/2024 7:53 AM SAUSAGE MAKER 06/27/2024 7:55 AM SAUSAGE MAKER us Bernard Bruce MD LAB BLOOD ORDERABLES Final Resul t [facility] [address] [facility] Department of Laboratories [place], [place] [id number] * (ABNORMAL) Differential, auto (06/27/2024 7:53 AM SAUSAGE MAKER) Neutrophil abs 5.4 1.5 - 6.5 K/cumm Comment:Testing performed by : [address] [address] Imm gran abs 0.0 0.0 - 0.1 K/cumm NEEL Comment:Testing performed by : [address] [address] Lymphocyte abs 3.7(H) 0.8 - 3.3 K/cumm NEEL Comment:Testing performed by : [address] [address] Monocyte abs 1.7(H) 0.2 - 0.8 K/cumm NEEL Comment:Testing performed by : [address] [address] Eosinophil abs 0.5 0.0 - 0.5 K/cumm NEEL Comment:Testing performed by : [address] [address] Basophil abs 0.1 0.0 - 0.1 K/cumm NEEL Comment:Testing performed by : [address] [address] Neutrophil pct 47.6 % NEEL Comment: Interpretive Data Percent cell count reference ranges are not reported, since discordance with absolute values may lead to misinterpretation of CBC data. Current Interpretive Data was last revised on 2017. Testing performed by: [address] [address] Imm gran pct 0.3 % [facility] Comment: Interpretive Data Percent cell count reference ranges are not reported, since discordance with absolute values may lead to misinterpretation of CBC data. Current Interpretive Data was last revised on 2017. Testing performed by: [address] [address] Lymphocyte pct 32.4 % [facility] Comment: Interpretive Data Percent cell count reference ranges are not reported, since discordance with absolute values may lead to misinterpretation of CBC data. Current Interpretive Data was last revised on 2017. Testing performed by: [address] [address] Monocyte pct 14.6 % [facility] Comment: Interpretive Data Percent cell count reference ranges are not reported, since discordance with absolute values may lead to misinterpretation of CBC data. Current Interpretive Data was last revised on 2017. Testing performed by: [address] [address] Eosinophil pct 4.4 % [facility] Comment: Interpretive Data Percent cell count reference ranges are not reported, since discordance with absolute values may lead to misinterpretation of CBC data. Current Interpretive Data was last revised on 2017. Testing performed by: [address] [address] Basophil pct 0.7 % [facility] Comment: Interpretive Data Percent cell count reference ranges are not reported, since discordance with absolute values may lead to misinterpretation of CBC data. Current Interpretive Data was last revised on 2017. Testing performed by: [address] [address] Blood 06/27/2024 7:53 AM SAUSAGE MAKER 06/27/2024 7:55 AM SAUSAGE MAKER us Bernard Bruce MD LAB BLOOD ORDERABLES Final Resul t NEEL [address] [facility] Department [place] [address] * (ABNORMAL) CBC with auto differential (06/27/2024 7:53 AM SAUSAGE MAKER) [facility] WBC 11.3(H) 3.8 - 9.9 K/cumm Comment:Testing performed by : [address] [address] Hgb 14.2 13.0 - 17.5 g/dL NEEL Comment:Testing performed by : [address] [address] Hct 43.1 38.9 - 50.3 % NEEL Comment:Testing performed by : [address] [address] Plt 301 150 - 400 K/cumm NEEL Comment:Testing performed by : [address] [address] MPV 10.2 9.1 - 12.3 fL NEEL Comment:Testing performed by : [address], [address] RBC 5.16 4.30 - 5.80 M/cumm NEEL Comment:Testing performed by : [address] [address] MCV 83.5 81.3 - 96.4 fL NEEL Comment:Testing performed by : [address] [address] MCH 27.5 27.1 - 33.3 pg NEEL Comment:Testing performed by : [address] [address] MCHC 32.9 32.3 - 35.7 g/dL NEEL Comment:Testing performed by : [address] [address] RDW CV 16.2(H) 11.1 - 14.9 % NEEL Comment:Testing performed by : [address] [address] RDW SD 49.5(H) 35.7 - 48.1 fL NEEL Comment:Testing performed by : [address], [address] NRBC abs 0.00 0.00 - 0.01 K/cumm [facility] Comment:Testing performed by : [address] [address] Blood Venous blood specimen / Unknown 06/27/2024 7:53 AM SAUSAGE MAKER 06/27/2024 7:55 AM SAUSAGE MAKER us Bernard Bruce MD LAB BLOOD ORDERABLES Final Resul t Performing Organization Address [facility] de Phone Number [address] [employer] [place] [address] * (ABNORMAL) Lipase (06/27/2024 7:53 AM SAUSAGE MAKER) Pathologist [facility] Lipase 355(H) 10 - 99 Units/L Comment:Testing performed by : [address] [address] Blood Venous blood specimen / Unknown 06/27/2024 7:53 AM SAUSAGE MAKER 06/27/2024 7:55 AM SAUSAGE MAKER us Bernard Bruce MD LAB BLOOD ORDERABLES Final Resul t Performing Organization Address [facility] de Phone Number [address] [employer] [place] [address] * Ethanol (06/27/2024 7:53 AM SAUSAGE MAKER) Pathologist [facility] Ethanol <10 <=10 mg/dL Comment: Interpretive Data Legal limit of intoxication > or = 80 mg/dL Levels > or = 400 mg/dL are potentially TOXIC. Current interpretive data was last revised on 2018. Testing performed by: [address] [address] Blood 06/27/2024 7:53 AM SAUSAGE MAKER 06/27/2024 7:55 AM SAUSAGE MAKER us Bernard Bruce MD LAB BLOOD ORDERABLES Final Resul t Performing Organization Address [facility] de Phone Number [address] [employer] [place] [address] * (ABNORMAL) Comprehensive metabolic panel (06/27/2024 7:53 AM SAUSAGE MAKER) Sodium 141 135 - 145 mmol/L Comment:Testing performed by : [address], [place]., [address] Potassium, pl 4.5 3.3 - 4.9 mmol/L NEEL Comment:Testing performed by : [address] [address] Chloride 102 97 - 110 mmol/L NEEL Comment:Testing performed by : [address], [place]., [address] CO2 25 22 - 32 mmol/L NEEL Comment:Testing performed by : [address] [address] Anion gap 14 2 - 15 mmol/L NEEL Comment:Testing performed by : [address] [address] BUN 15 6 - 25 mg/dL NEEL Comment:Testing performed by : [address], [place]., [address] Creatinine 1.10 0.80 - 1.30 mg/dL NEEL Comment:Testing performed by : [address] [address] Glucose 110 70 - 199 mg/dL NEEL [...] was last revised 2022. Testing performed by: [address], [place]., [address] Calcium 10.1 8.5 - 10.3 mg/dL NEEL Comment:Testing performed by : [address] [address] Bilirubin, total 0.3 0.1 - 1.2 mg/dL NEEL Comment:Testing performed by : [address] [address] Protein, pl 7.4 6.5 - 8.5 g/dL NEEL Comment:Testing performed by : [address] [address] Albumin 4.5 3.5 - 5.0 g/dL NEEL Comment:Testing performed by : [address] [address] Alk phos 91 40 - 130 Units/L NEEL Comment:Testing performed by : [address] [address] ALT 40 7 - 55 Units/L NEEL Comment:Testing performed by : [address] [address] AST 58(H) 10 - 50 Units/L NEEL Comment:Testing performed by : [address] [address] Blood 06/27/2024 7:53 AM SAUSAGE MAKER 06/27/2024 7:55 AM SAUSAGE MAKER us Bernard Bruce MD LAB BLOOD ORDERABLES Final Resul t Performing Organization Address City/State/[facility] Co de Phone Number [facility] [address] [facility] Department of Laboratories [place], [place] [id number] * (ABNORMAL) Urinalysis reflex to microscopic and culture Urine (06/19/2024 7:06 PM SAUSAGE MAKER) Color, ur Yellow Yellow Comment:Testing performed by : [address] [address] Clarity, ur Clear Clear NEEL SMITH Comment:Testing performed by : [address] [address] Specific gravity, ur 1.023 1.003 - 1.030 NEEL Comment:Testing performed by : [address] [address] pH, urine 6.0 NEEL Comment: Interpretive Data U rine pH is affected by diet, medications, systemic acid-base disturbances, and renal tubular function. pH may affect urinary stone formation. For example, urine pH below 6.0 may help reduce the tendency for calcium phosphate stones and pH greater than 6.0 may reduce the tendency for uric acid stone formation. Source: [facility] [employer] Current Interpretive Data was last revised on 2017 Testing performed by: [facility], [address] [place] [address], [place]., [address] Protein, ur ql Trace(A) Negative NEEL Comment:Testing performed by : [address], [place]., [address] Glucose, ur ql Negative Negative NEEL Comment:Testing performed by : [address], [place]., [address] Ketones, ur 1+(A) Negative NEEL Comment:Testing performed by : [address] [address] Bilirubin, ur Negative Negative NEEL Comment:Testing performed by : [address], [place]., [address] Blood, ur Negative Negative NEEL Comment:Testing performed by : [address], [place]., [address] Urobilinogen, ur <2.0 <2.0 mg/dL NEEL Comment:Testing performed by : [address] [address] Nitrite, ur Negative Negative NEEL Comment:Testing performed by : [address] [address] Leukocyte esterase, ur Negative Negative NEEL Comment:Testing performed by : [address], [place]., [address] UA reflex comment Reflex to microscopic UA will be performed. NEEL Comment:Testing performed by : [address], [place]., [address] Urine 06/19/2024 7:06 PM SAUSAGE MAKER 06/19/2024 7:11 PM SAUSAGE MAKER us Terri Fuentes MD LAB MICROBIOLOGY - GENER AL ORDERABLES Final Result Performing Organization Address [facility] de Phone Number NEEL [address] [place] [address] * (ABNORMAL) Urinalysis, microscopic only (06/19/2024 7:06 PM SAUSAGE MAKER) WBC, ur 0-5 0 - 5 /HPF Comment:Testing performed by : [facility], [address] [place] [address]., [address] RBC, ur 0-2 0 - 2 /HPF NEEL Comment:Testing performed by : [facility], [address] [place] [address], [place]., [address] Bacteria, ur Trace(A) NEEL Comment:Testing performed by : [address] [address] Mucous, ur Present(A) NEEL Comment:Testing performed by : [address] [address] Culture Reflex Comment Reflex conditions for urine culture (WBC >10) not met. NEEL Comment:Testing performed by : [address] [address] Urine 06/19/2024 7:06 PM SAUSAGE MAKER 06/19/2024 7:11 PM SAUSAGE MAKER Terri Fuentes MD LAB URINE ORDERABLES Fin al Result Performing Organization Address [facility] de Phone Number NEEL [facility] [employer] [place] [address] * ECG 12 lead (06/19/2024 7:04 PM SAUSAGE MAKER) Ventricular Rate EKG/Min 67 BPM [facility] Atrial Rate 67 BPM [facility] WY-Interval (MSEC) 106 ms [facility] QRS-Interval (MSEC) 102 ms [facility] QT-Interval (MSEC) 410 ms [facility] QTc 433 ms [facility] P Ilion 28 degrees [facility] R Ilion 37 degrees [facility] T Ilion 50 degrees [facility] Diagnosis Sinus rhythm with short WY with sinus arrhythmia Within normal limits When compared with ECG of 20-APR-2024 12:58, No significant change Confirmed by SULTAN DE JESUS M.D. ([id number]) on 06/20/2024 1:51:59 PM [facility] 06/19/2024 7:04 PM SAUSAGE MAKER 06/20/2024 1:51 PM SAUSAGE MAKER Terri Fuentes MD ECG ORDERABLES Final Re sult Performing Organization Address City/[facility] Co de Phone Number [facility] * Troponin T high-sensitivity series (baseline, 2hr, 4hr, 6hr) (06/19/2024 6:56 PM SAUSAGE MAKER) Pathologist [facility] Trop T hs <6 <=22 ng/L Comment: Interpretive Data For further hscTnT resources including the diagnostic algorithm and an aid in interpretation, copy and paste this link: https://nrl.testcatalog.org/show/hsTrop Current Interpretive Data last revised 2020. Testing performed by: [facility], [address] [place] [address]., [address] Blood 06/19/2024 6:56 PM SAUSAGE MAKER 06/19/2024 7:03 PM SAUSAGE MAKER Terri Fuentes MD LAB BLOOD ORDERABLES Fin al Result Performing Organization Address [facility] Co de Phone Number [place] [id number] [facility] [place] [address] * eGFR (06/19/2024 6:56 PM SAUSAGE MAKER) eGFR >90 >=60 mL/min/1. 73 m2 Comment: [...] was last reviewed 2021. Testing performed by: [address] [address] Blood 06/19/2024 6:56 PM SAUSAGE MAKER 06/19/2024 7:03 PM SAUSAGE MAKER us Terri Fuentes MD LAB BLOOD ORDERABLES Fin al Result [facility] [address] [facility] [place] [address] * (ABNORMAL) Differential, auto (06/19/2024 6:56 PM SAUSAGE MAKER) Neutrophil abs 17.4(H) 1.5 - 6.5 K/cumm Comment:Testing performed by : [address] [address] Imm gran abs 0.1 0.0 - 0.1 K/cumm NEEL Comment:Testing performed by : [address] [address] Lymphocyte abs 1.2 0.8 - 3.3 K/cumm NEEL Comment:Testing performed by : [address] [address] Monocyte abs 1.1(H) 0.2 - 0.8 K/cumm NEEL Comment:Testing performed by : [address] [address] Eosinophil abs 0.0 0.0 - 0.5 K/cumm NEEL Comment:Testing performed by : [address] [address] Basophil abs 0.1 0.0 - 0.1 K/cumm NEEL Comment:Testing performed by : [address] [place] [address] Neutrophil pct 87.3 % [facility] Comment: Interpretive Data Percent cell count reference ranges are not reported, since discordance with absolute values may lead to misinterpretation of CBC data. Current Interpretive Data was last revised on 2017. Testing performed by: [address] [address] Imm gran pct 0.7 % [facility] Comment: Interpretive Data Percent cell count reference ranges are not reported, since discordance with absolute values may lead to misinterpretation of CBC data. Current Interpretive Data was last revised on 2017. Testing performed by: [address] [address] Lymphocyte pct 6.2 % [facility] Comment: Interpretive Data Percent cell count reference ranges are not reported, since discordance with absolute values may lead to misinterpretation of CBC data. Current Interpretive Data was last revised on 2017. Testing performed by: [address] [address] Monocyte pct 5.5 % [facility] Comment: Interpretive Data Percent cell count reference ranges are not reported, since discordance with absolute values may lead to misinterpretation of CBC data. Current Interpretive Data was last revised on 2017. Testing performed by: [address] [address] Eosinophil pct 0.0 % [facility] Comment: Interpretive Data Percent cell count reference ranges are not reported, since discordance with absolute values may lead to misinterpretation of CBC data. Current Interpretive Data was last revised on 2017. Testing performed by: [address] [address] Basophil pct 0.3 % [facility] Comment: Interpretive Data Percent cell count reference ranges are not reported, since discordance with absolute values may lead to misinterpretation of CBC data. Current Interpretive Data was last revised on 2017. Testing performed by: [address] [address] Blood 06/19/2024 6:56 PM SAUSAGE MAKER 06/19/2024 7:03 PM SAUSAGE MAKER us Terri Fuentes MD LAB BLOOD ORDERABLES Fin al Result NEEL [address] [facility] Department [place] [address] * (ABNORMAL) CBC with auto differential (06/19/2024 6:56 PM SAUSAGE MAKER) WBC 20.0(H) 3.8 - 9.9 K/cumm Comment:Testing performed by : [address] [address] Hgb 13.8 13.0 - 17.5 g/dL NEEL Comment:Testing performed by : [address], [address] Hct 41.3 38.9 - 50.3 % NEEL Comment:Testing performed by : [address] [address] Plt 330 150 - 400 K/cumm NEEL Comment:Testing performed by : [address], [address] MPV 9.8 9.1 - 12.3 fL NEEL Comment:Testing performed by : [address], [address] RBC 5.02 4.30 - 5.80 M/cumm NEEL Comment:Testing performed by : [address] [address] MCV 82.3 81.3 - 96.4 fL NEEL Comment:Testing performed by : [address] [address] MCH 27.5 27.1 - 33.3 pg NEEL Comment:Testing performed by : [address], [address] MCHC 33.4 32.3 - 35.7 g/dL NEEL Comment:Testing performed by : [address] [address] RDW CV 15.8(H) 11.1 - 14.9 % NEEL Comment:Testing performed by : [address] [address] RDW SD 46.4 35.7 - 48.1 fL NEEL SMITH Comment:Testing performed by : [address] [address] NRBC abs 0.00 0.00 - 0.01 K/cumm NEEL SMITH Comment:Testing performed by : [address] [address] Blood Venous blood specimen / Unknown 06/19/2024 6:56 PM SAUSAGE MAKER 06/19/2024 7:03 PM SAUSAGE MAKER Terri Fuentes MD LAB BLOOD ORDERABLES Fin al Result [address] [place] [employer] [place] [address] * Lipase (06/19/2024 6:56 PM SAUSAGE MAKER) Pathologist [facility] Lipase 90 10 - 99 Units/L Comment:Testing performed by : [address] [address] Blood Venous blood specimen / Unknown 06/19/2024 6:56 PM SAUSAGE MAKER 06/19/2024 7:03 PM SAUSAGE MAKER Terri Fuentes MD LAB BLOOD ORDERABLES Fin al Result Performing Organization Address City/[facility]/ZIP Co de Phone Number [address] [address] * Comprehensive metabolic panel (06/19/2024 6:56 PM SAUSAGE MAKER) Sodium 142 135 - 145 mmol/L Comment:Testing performed by : [address] [address] Potassium, pl 4.2 3.3 - 4.9 mmol/L NEEL SMITH Comment:Testing performed by : [address] [address] Chloride 106 97 - 110 mmol/L NEEL SMITH Comment:Testing performed by : [address] [address] CO2 22 22 - 32 mmol/L [facility] Comment:Testing performed by : [address] [address] Anion gap 14 2 - 15 mmol/L [facility] Comment:Testing performed by : [address], [place]., [address] BUN 15 6 - 25 mg/dL [facility] Comment:Testing performed by : [address], [place]., [address] Creatinine 0.97 0.80 - 1.30 mg/dL [facility] Comment:Testing performed by : [address], [place]., [address] Glucose 144 70 - 199 mg/dL [facility] Comment: Interpretive Data Fasting glucose [...] was last revised 2022. Testing performed by: [address] [address] Calcium 9.9 8.5 - 10.3 mg/dL [facility] Comment:Testing performed by : [address] [address] Bilirubin, total 0.4 0.1 - 1.2 mg/dL [facility] Comment:Testing performed by : [address] [address] Protein, pl 7.4 6.5 - 8.5 g/dL [facility] Comment:Testing performed by : [address] [address] Albumin 4.5 3.5 - 5.0 g/dL NEEL Comment:Testing performed by : [address] [address] Alk phos 92 40 - 130 Units/L NEEL Comment:Testing performed by : [facility], [address] [place] [address]., [address] ALT 26 7 - 55 Units/L NEEL SMITH Comment:Testing performed by : [address] [address] AST 25 10 - 50 Units/L NEEL SMITH Comment:Testing performed by : [facility], [address] [place] [address]., [address] Blood 06/19/2024 6:56 PM SAUSAGE MAKER 06/19/2024 7:03 PM SAUSAGE MAKER us Terri Fuentes MD LAB BLOOD ORDERABLES Fin al Result NEEL [address] [facility] Department [place] [address] * (ABNORMAL) Drugs of Abuse Screen, Urine without Confirmation (05/20/2024 7:37 PM SAUSAGE MAKER) Pathologist [facility] Amphetamine, ur Not Detected CutOff 500ng/mL Comment: [...] 2022. Cocaine, ur Not Detected CutOff 150ng/mL [facility] Comment: Interpretive Data - Cocaine: Samples containing greater than 150 ng/mL benzoylecgonine or other cross- reacting compounds are reported as positive. False positive and false negative results are possible. Confirmatory testing required for definitive results. Current Interpretive Data was last reviewed 2022. Fentanyl, Ur Not Detected CutOff 5 ng/mL [facility] Comment: Interpretive Data - Fentanyl: Samples containing greater than 5 ng/mL norfentanyl, fentanyl, or other cross-reacting fentanyl compounds are reported as positive. False positive and false negative results are possible. Confirmatory testing required for definitive results. Current Interpretive Data was last reviewed 2023. Methadone, ur Not Detected CutOff 300ng/mL [facility] Comment: Interpretive Data - Methadone: Samples containing greater than 300 ng/mL d,l-methadone or other cross-reacting compounds are reported as positive. False positive and false negative results are possible. Confirmatory testing required for definitive results. Current Interpretive Data was last reviewed 2022. Opiates, ur Not Detected CutOff 300ng/mL [facility] Comment: Interpretive Data - Opiates: Samples containing greater than 300 ng/mL morphine or other cross-reacting compounds are reported as positive. False positive and false negative results are possible. Confirmatory testing required for definitive results. Current Interpretive Data was last reviewed 2022. Oxycodone, ur Not Detected CutOff 100ng/mL [facility] Comment: Interpretive Data - Oxycodone: Samples containing greater than 100 ng/mL oxycodone or other cross-reacting compounds are reported as positive. False positive and false negative results are possible. Confirmatory testing required for definitive results. Current Interpretive Data was last reviewed 2022. Phencyclidine, ur Not Detected CutOff 25 ng/mL [facility] Comment: Interpretive Data - Phencyclidine: Samples [...] revised on 2017. Urine 05/20/2024 7:37 PM SAUSAGE MAKER 05/20/2024 7:40 PM SAUSAGE MAKER Narrative [facility] - 05/20/2024 8:04 PM SAUSAGE MAKER Drug of Abuse screening is performed by immunoassay for medical purposes only. This is not to be used for Pain Management purposes. us Kelly LAWTON LAB URINE ORDERABLES F inal Result NEEL [address] [facility] Department [place] [address] * CT Abdomen Pelvis W Contrast (05/20/2024 5:56 PM SAUSAGE MAKER) Anatomical Region Laterality Modality Body N/A Computed Tomogra phy 05/20/2024 6:54 PM SAUSAGE MAKER Narrative 05/20/2024 7:00 PM SAUSAGE MAKER EXAM DESCRIPTION: CT ABDOMEN PELVIS W CONTRAST REASON FOR STUDY: Abdominal pain, acute, nonlocalized Pt c/o abdominal pain [id number] with NV. Hx: cholecystectomy TECHNIQUE: CT scan [...] Francisco Jesus M.D. KT T: Report ID: [id number] Reading Location: [id number] Procedure Note Jose Francisco Jesus MD - 05/20/2024 EXAM DESCRIPTION: CT ABDOMEN PELVIS W CONTRAST REASON FOR STUDY: Abdominal pain, acute, nonlocalized Pt c/o abdominal pain [id number] with NV. Hx: cholecystectomy TECHNIQUE: CT scan [...] Francisco Jesus M.D. KT T: Report ID: [id number] Reading Location: [id number] Kelly LAWTON IMG CT PROCEDURES Renee l Result * Sepsis Lactate w/ Reflex (05/20/2024 5:16 PM SAUSAGE MAKER) Sepsis Lactate 1.5 0.7 - 2.0 mmol/L Blood 05/20/2024 5:16 PM SAUSAGE MAKER 05/20/2024 5:18 PM SAUSAGE MAKER Kelly LAWTON LAB BLOOD ORDERABLES F inal Result [facility] [address] [facility] Department [place] [address] * eGFR (05/20/2024 4:03 PM SAUSAGE MAKER) eGFR >90 >=60 mL/min/1. 73 m2 Comment: [...] last reviewed 2021. Blood 05/20/2024 4:03 PM SAUSAGE MAKER 05/20/2024 4:07 PM SAUSAGE MAKER us Freddy Bell MD LAB BLOOD ORDERABLES Final Result NEEL [address] [facility] Department [place] [address] * (ABNORMAL) Differential, auto (05/20/2024 4:03 PM SAUSAGE MAKER) Neutrophil abs 15.0(H) 1.5 - 6.5 K/cumm Imm gran abs 0.1 0.0 - 0.1 K/cumm [facility] Lymphocyte abs 3.1 0.8 - 3.3 K/cumm [facility] Monocyte abs 1.6(H) 0.2 - 0.8 K/cumm [facility] Eosinophil abs 0.2 0.0 - 0.5 K/cumm [facility] Basophil abs 0.1 0.0 - 0.1 K/cumm [facility] Neutrophil pct 74.9 % [facility] Comment: Interpretive Data Percent cell count reference ranges are not reported, since discordance with absolute values may lead to misinterpretation of CBC data. Current Interpretive Data was last revised on 2017. Imm gran pct 0.5 % [facility] Comment: Interpretive Data Percent cell count reference ranges are not reported, since discordance with absolute values may lead to misinterpretation of CBC data. Current Interpretive Data was last revised on 2017. Lymphocyte pct 15.3 % [facility] Comment: Interpretive Data Percent cell count reference ranges are not reported, since discordance with absolute values may lead to misinterpretation of CBC data. Current Interpretive Data was last revised on 2017. Monocyte pct 7.8 % [facility] Comment: Interpretive Data Percent cell count reference ranges are not reported, since discordance with absolute values may lead to misinterpretation of CBC data. Current Interpretive Data was last revised on 2017. Eosinophil pct 1.1 % [facility] Comment: Interpretive Data Percent cell count reference ranges are not reported, since discordance with absolute values may lead to misinterpretation of CBC data. Current Interpretive Data was last revised on 2017. Basophil pct 0.4 % [facility] Comment: Interpretive Data Percent cell count reference ranges are not reported, since discordance with absolute values may lead to misinterpretation of CBC data. Current Interpretive Data was last revised on 2017. Blood 05/20/2024 4:03 PM SAUSAGE MAKER 05/20/2024 4:07 PM SAUSAGE MAKER Freddy Bell MD LAB BLOOD ORDERABLES Final Result Performing Organization Address [facility] de Phone Number NEEL [address] [place] [address] * (ABNORMAL) Urinalysis reflex to microscopic and culture Urine (05/20/2024 4:03 PM SAUSAGE MAKER) Color, ur Yellow Yellow Clarity, ur Cloudy(A) Clear [facility] Specific gravity, ur 1.021 1.003 - 1.030 [facility] pH, urine 6.5 [facility] Comment: Interpretive Data U rine pH is affected by diet, medications, systemic acid-base disturbances, and renal tubular function. pH may affect urinary stone formation. For example, urine pH below 6.0 may help reduce the tendency for calcium phosphate stones and pH greater than 6.0 may reduce the tendency for uric acid stone formation. Source: [facility] Current Interpretive Data was last revised on 2017 Protein, ur ql Negative Negative [facility] Glucose, ur ql Negative Negative [facility] Ketones, ur Negative Negative [facility] Bilirubin, ur Negative Negative [facility] Blood, ur Negative Negative [facility] Urobilinogen, ur <2.0 <2.0 mg/dL [facility] Nitrite, ur Negative Negative [facility] Leukocyte esterase, ur Negative Negative [facility] UA reflex comment Reflex conditions for microscopic UA and culture not met. [facility] Urine 05/20/2024 4:03 PM SAUSAGE MAKER 05/20/2024 4:07 PM SAUSAGE MAKER Freddy Bell MD LAB MICROBIOLOGY - GENERAL ORDERABLES Final Result Performing Organization Address [facility] Co de Phone Number NEEL [address] [place] [address] * (ABNORMAL) CBC with auto differential (05/20/2024 4:03 PM SAUSAGE MAKER) [facility] WBC 20.1(H) 3.8 - 9.9 K/cumm Hgb 14.2 13.0 - 17.5 g/dL [facility] Hct 43.4 38.9 - 50.3 % [facility] Plt 327 150 - 400 K/cumm [facility] MPV 9.9 9.1 - 12.3 fL [facility] RBC 5.20 4.30 - 5.80 M/cumm [facility] MCV 83.5 81.3 - 96.4 fL [facility] MCH 27.3 27.1 - 33.3 pg [facility] MCHC 32.7 32.3 - 35.7 g/dL [facility] RDW CV 15.9(H) 11.1 - 14.9 % [facility] RDW SD 47.5 35.7 - 48.1 fL [facility] NRBC abs 0.00 0.00 - 0.01 K/cumm [facility] Blood Venous blood specimen / Unknown 05/20/2024 4:03 PM SAUSAGE MAKER 05/20/2024 4:07 PM SAUSAGE MAKER Freddy Bell MD LAB BLOOD ORDERABLES Final Result [address] [place] [address] * Lipase (05/20/2024 4:03 PM SAUSAGE MAKER) [facility] Lipase 34 10 - 99 Units/L Blood Venous blood specimen / Unknown 05/20/2024 4:03 PM SAUSAGE MAKER 05/20/2024 4:07 PM SAUSAGE MAKER Freddy Bell MD LAB BLOOD ORDERABLES Final Result Performing Organization Address City/[facility]/ZIP Co de Phone Number [address] [employer] [place] [employer] [place] [address] * Comprehensive metabolic panel (05/20/2024 4:03 PM SAUSAGE MAKER) [facility] Sodium 142 135 - 145 mmol/L Potassium, pl 3.6 3.3 - 4.9 mmol/L [facility] Chloride 105 97 - 110 mmol/L [facility] CO2 24 22 - 32 mmol/L [facility] Anion gap 13 2 - 15 mmol/L [facility] BUN 12 6 - 25 mg/dL [facility] Creatinine 1.00 0.80 - 1.30 mg/dL [facility] Glucose 101 70 - 199 mg/dL [facility] Comment: Interpretive Data Fasting glucose [...] 2022. Calcium 10.1 8.5 - 10.3 mg/dL [facility] Bilirubin, total 0.3 0.1 - 1.2 mg/dL [facility] Protein, pl 7.3 6.5 - 8.5 g/dL [facility] Albumin 4.5 3.5 - 5.0 g/dL [facility] Alk phos 97 40 - 130 Units/L [facility] ALT 22 7 - 55 Units/L [facility] AST 24 10 - 50 Units/L [facility] Blood 05/20/2024 4:03 PM SAUSAGE MAKER 05/20/2024 4:07 PM SAUSAGE MAKER us Freddy Bell MD LAB BLOOD ORDERABLES Final Result [facility] [address] [facility] [place] [address] from Last 3 Months Insurance [facility] Advance Directives For more information, please contact: [phone] * Full Code (Latest Code Status on [...] 11:23 AM 02/10/2022 10:36 PM Care Teams Bolter Helper Relationship Specialty Start Date End Date Td Lopez MD [address] [facility] [address] [place] [address] PCP - General Family Medicine 11/09/20 Angie Woodard MD [address] [facility] [address] [place] [address] Consulting Physician Gastroenterology 07/17/21 Vimal Woodruff MD [address] [facility] [address] [place] [address] Consulting Physician Gastroenterology 02/10/22
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
--- OUTSIDE RECORDS SUMMARY | 2024-08-05 20:57 | XMS_ITS | Encounter Summary ---
Author Organization [facility] Healthcare Address [address] [place] [address] Care Team Providers Care Special Forces Specialist Name Role Phone Td Lopez MD Primary Care Provider + Angie Woodard MD Unavailable [phone] Vimal Woodruff MD Unavailable [phone] Reason for Visit * Reason Comments Unsuccessful Phone Call 1 [facility] 1 [facility] ph 08/03 Abdominal pain Encounter Details Date Type Department Care Team (Late st Contact Info) Description 08/04/2024 DIPTI ED Outreach [facility] Accountable Care Organization [address] [place] [address] [id number] Alannah Baumann [address] [place] [address] Social History Tobacco Use Types Packs/Day Years Used Date Smoking Tobacco: Every Day Cigarettes Smokeless Tobacco: Never Alcohol Use Standard Drinks/Week Comments Not Currently 0 (1 standard drink = 0.6 oz pur e alcohol) [facility] Utilities Answer Date Recorded In the past 12 months has [employer] electric, gas, oil, or water company threatened [...] often do you attend chur ch or restorationist services? Never 09/21/2023 Do you belong to [...] in a longterm (including now)? No 09/21/2023 PHQ-9 Answer Date Recorded PHQ-9 Total Score 5 03/25/2024 Personal Safety Answer Date Recorded Have you ever been in or are you currently in a harmful physical or emotional relationship or is someone making you feel afraid or unsafe? 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 Thank You, JALEESA Herman ACO Care Pick Up Attendant [facility] documented in this encounter Plan of Treatment Not on file documented as of this encounter Visit Diagnoses Not on filedocumented in this encounter Care Teams Special Forces Specialist Relationship Specialty Start Date End Date Td Lopez MD [facility] [address] [place] [address] PCP - General Family Medicine 11/09/20 Angie Woodard MD [address] [facility] [address] [place] [address] Consulting Physician Gastroenterology 07/17/21 Vimal Woodruff MD [address] [facility] [address] [place] [address] Consulting Physician Gastroenterology 02/10/22 documented as of this encounter
--- OUTSIDE RECORDS SUMMARY | 2024-08-05 20:57 | XMS_ITS ---
Author Organization [facility] Address [address] [facility] [address] [place] [address] Care Team Providers Care Sulfide Head Operator Name Role Phone John TUCKER, Td Primary Care Provider Tucker FIGUEROA NP, MELISSA Unavailable ALLERGIES Allergen (clinical drug ingredient) Drug/Non Drug Allergy documented on EMR Reaction Allergy Type Onset Date Status Information temporarily unavailable sulfa (uncoded) Unknown Allergy Active Information temporarily unavailable Metoclopramide HCl Unknown Drug Allergy Active Information temporarily unavailable Doxycycline Unknown Drug Allergy Active REASON FOR VISIT f/u ERCP MEDICATIONS Medication [...] chronic pancreatitis (K86.1) Active confirmed Chronic pancreatitis ([id number]) VITAL SIGNS Blood pressure systolic 110 mm Hg 10/23/19 24 Blood pressure diastolic 81 mm Hg 024 Heart Rate 88 /min 10/23/2023 Height 70 in 10/23/2023 Weight 159 lbs 10/23/2023 BMI 22.81 kg/m2 10/23/2023 Encounters Encounter Location Date Provider Diagnosis [facility] [address] [place] [address] 10/23/2023 MELISSA FIGUEROA Other chronic pancreatitis K86.1 [...] Up: 1 Year, Reason: Progress Notes * Donovan BROWN MDOB: 2 (43 yo M)Acc No.[id number]:10/23/2023 Progress Notes Patient: Donovan BROWN Appointment Provider: Melissa Figueroa CNP :1980 Age:43 Y Sex:Male Date:10/23/2023 Address:[address] [place] [address] [facility] Pcp:Td Lopez MD Subjective: * Chief [...] doing much better. P revious testin EUS Maganty showed mild chronic pancreatitis, no [...]
--- OUTSIDE RECORDS SUMMARY | 2024-08-05 20:57 | XMS_ITS | Encounter Summary ---
Author Organization [facility] Healthcare Address [address] [place] [address] Care Team Providers Care Curtain Cutter Hand Name Role Phone Td Lopez MD Primary Care Provider + Angie Woodard MD Unavailable [phone] Vimal Woodruff MD Unavailable [phone] PastorAlannah MA Unavailable [phone] PastorAlannah MA Unavailable [phone] PastorAlannah MA Unavailable [phone] Encounter Details Date Type Department Care Team (Late st Contact Info) Description 12/21/2017 Documentation [address] [place] [address] Shannan Farfan RN Social History Tobacco Use Types Packs/Day Years Used Date Smoking Tobacco: Every Day Sex and Gender Information Value Date Recorded Sex Assigned at Not on file Legal Sex Male 3:38 AM CATERING DIRECTOR Gender Identity Not on file Sexual Orientation [...] CDT COVID: Suspected 06/27/2021 06/27/202106/27/2021 12:53 PM CATERING DIRECTOR COVID19 06/27/2021 06/27/2021 07/08/2021 3:05 AM CATERING DIRECTOR COVID: Recovered Comment:Added based on recent COVID infection. 07/08/2021 07/14/2021 11/05/2021 3:05 AM C DT COVID: Suspected 05/20/2022 05/20/2022 05/20/2022 2:32 AM CATERING DIRECTOR COVID: Suspected 09/20/2023 09/20/2023 09/20/2023 9:26 PM CDT COVID: Suspected 10/04/2023 10/04/2023 10/04/2023 3:55 PM CDT documented as of this encounter Care Teams Curtain Cutter Hand Relationship Specialty Start Date End Date Td Lopez MD [address] [facility] [address] [place] [address] PCP - General Family Medicine 11/09/20 Angie oWodard MD [address] [facility] [address] [place] [address] Consulting Physician Gastroenterology 07/17/21 Vimal Woodruff MD [address] [facility] [address] [place] [address] Consulting Physician Gastroenterology 02/10/22 Alannah Baumann MA [address] [place] [address] [address] [place] [address] ACO Care Tank Erector 12/31/23 01/05/24 Alannah Baumann MA [address] [place] [address] [address] [place] [address] ACO Care Tank Erector 06/29/24 06/30/24 Alannah Baumann MA [address] [place] [address] [address] [place] [address] ACO Care Tank Erector 08/03/24 08/03/24 documented as of this encounter
--- OUTSIDE RECORDS SUMMARY | 2024-08-05 20:57 | XMS_ITS | Clinical Summary ---
Author Organization [facility] Address [address] [facility] [place] [address] Care Team Providers Care Plug Making Operator Name Role Phone Alee Zhao MD Primary Care Provider [phone] [facility],non-owned Affiliates and Associated Physician Practices is amultiple site organization consisting of ambulatory clinics and hospital sitesin [place], [place], [place] and [place]. This disclosure is being madepursuant to the Care Everywhere program and may not contain all information available regarding this patient. Last updated 18.[facility] Allergies Active Allergy Reactions Criticality Noted Date [...] Comments Blood Pressure 120/71 03/17/2019 5:03 PM SIGNALING DESIGN ENGINEER Pulse 75 03/17/2019 5:03 PM SIGNALING DESIGN ENGINEER Temperature 36.9 C (98.4 F) 03/17/2019 2:00 PM SIGNALING DESIGN ENGINEER Respiratory Rate 17 03/17/2019 5:03 PM SIGNALING DESIGN ENGINEER Oxygen Saturation 99% 03/17/2019 5:03 PM SIGNALING DESIGN ENGINEER Inhaled Oxygen Concentration - - Weight 77.1 kg (170 lb) 03/17/2019 2:00 PM SIGNALING DESIGN ENGINEER Height 177.8 cm (5' 10 ) 03/17/2019 2:00 PM SIGNALING DESIGN ENGINEER Body Mass Index 24.39 03/17/2019 2:00 PM SIGNALING DESIGN ENGINEER Plan of Treatment Health Maintenance Due Date [...] RFLX NAAT QUANT STAT 03/27/2018 9:12 PM SIGNALING DESIGN ENGINEER HIV-1 HIV-2 ANTIGEN/ANTIBODY STAT 03/27/2018 9:12 PM SIGNALING DESIGN ENGINEER from Last 3 Months or Most Recently Relevant to Health Maintenance Results * HIV-1 HIV-2 ANTIGEN/ANTIBODY (03/27/2018 9:12 PM SIGNALING DESIGN ENGINEER) HIV Antigen/Antibod y 1 & 2 Non-reacti ve Non-react nemesio 03/27/2018 10:17 PM SIGNALING DESIGN ENGINEER [facility] Comment: Neither HIV-1 p24 Antigen nor HIV-1/HIV-2 Antibodies are detected. Blood BLOOD SPECIMEN / Unknown Venipuncture / Unknown 03/27/2018 9:12 PM SIGNALING DESIGN ENGINEER 03/27/2018 9:21 PM SIGNALING DESIGN ENGINEER Davi Patrick MD LAB - HEMATOLOGY ORD ERABLES [address] [phone] * HEPATITIS C AB SCREEN RFLX NAAT QUANT (03/27/2018 9:12 PM SIGNALING DESIGN ENGINEER) Pathologist [facility] Hepatitis C Antibody Non-react nemesio Non-reac tive 03/27/2018 10:20 PM SIGNALING DESIGN ENGINEER [facility] Comment: Hepatitis C Antibody [...] Unknown Venipuncture / Unknown 03/27/2018 9:12 PM SIGNALING DESIGN ENGINEER 03/27/2018 9:21 PM SIGNALING DESIGN ENGINEER Davi Patrick MD LAB - [place] [address], [place] [phone] from Last 3 Months or Most Recently Relevant to Health Maintenance Care Teams Plug Making Operator Relationship Specialty Start Date End Date Alee Zhao MD [address] [place] [id number] PCP - General Family Medicine 03/25/18
--- OUTSIDE RECORDS SUMMARY | 2024-08-05 20:57 | XMS_ITS | Encounter Summary ---
Author Organization [facility] Address [address] [place] [address] Care Team Providers Care Hospital Fellow Name Role Phone Td Lopez MD Primary Care Provider [phone] Reason for Visit * Reason Comments Abdominal Pain Encounter Details Date Type Department Care Team (Late st Contact Info) Description 08/03/2024 4:28 PM CDT - 08/03/2024 7:38 PM CDT Emergency [facility] Emergency Room [address] [place] [address] Nelida Carrizales MD [address] [place] [address] [id number] Abdominal Pain Discharge Disposition: Home or Self [...] week 09/28/2022 How often do you attend restorationist or yarsani serv ices? Never 09/28/2022 Do you belong to any clubs o r organizations such as restorationist groups, unions, fraternal or athletic groups, or [...] and heating? Not hard at all 10/18/2022 [facility] - Occupational Stress [...] slept in a longterm (including now)? No 10/18/2022 Sex and Gender Information Value Date Recorded Sex Assigned at Male 06/21/2024 7:21 PM SALES AND MARKETING ENGINEER Legal Sex Male 8:10 AM CDT Gender [...] Care Everywhere. * Chronic Pain Discharge Instructions ([place]) * Abdominal Pain, Adult ED ([place]) documented in this encounter Medications at Time of Discharge amLODIPine (NORVASC) 5 MG tablet Take 1 tablet (5 mg total) by mouth daily. 30 tablet 10/20/2022 apixaban (ELIQUIS) 5 MG tabletIndications:D eep Vein Thrombosis Take 1 tablet (5 mg total) by mouth 2 (two) times daily. Indications: Blood Clot in a Deep Vein 60 tablet 10/19/2022 CREON [id number] units CAPSULE ENTERIC COATED PARTICLES Take 36,000 [...] reviewed in detail. Patient was seen at [facility] emergency department in [place] earlier today for these same symptoms. Patient was not given narcotic medications and advised he would not be receiving narcotic medications. Patient then decided he wanted to leave that facility. Shortly thereafter, arrived at this facility for evaluation of symptoms. Patient had additionallybeen seen in the emergency department at [facility] yesterday for the same symptoms. CT [...] review of records both here in the [facility] systemas well as [facility]. Medical History ALLERGIES: Review of patient's allergies [...] a Deep Vein 10/19/22 SAMUEL Morillo CREON [id number] units CAPSULE ENTERIC COATED PARTICLES Take 36,000 [...] forcep performed by Angie Woodard MD at [facility] GI EGD ERCP HC BILIARY STENT FAMILY [...] ED visit yesterday andagain this afternoon at [facility]. Patient had CT scan done at that time. No concerning findings identified on CT. CT not repeated here today. Patient with mild elevation of white blood cell count, labs otherwise unremarkable. Patient given IV fluids and medications for symptoms. Patient discharged and advised to continue his usual prescription medications and follow-up with his website project manager and primary care physician. Problems Addressed: Chronic [...] Impression Chronic abdominal pain (Primary) Disposition: Discharge Neldia Carrizales MD 08/03/241943 * Vani Real RN - [...] COLOR (U) YELLOW 08/03/2024 7:32 PM CDT [facility] TRANSPARENCY CLEAR 08/03/2024 7:32 PM CDT [facility] SPECIFIC GRAVITY (U) <1.005 1.000 - 1.030 08/03/2024 7:32 PM CDT [facility] U PH 6.0 5.0 - 9.0 08/03/2024 7:32 PM CDT [facility] LEUKOCYTES (U) NEGATIVE NEGATIVE 08/03/2024 7:32 PM CDT [facility] NITRITES NEGATIVE NEGATIVE 08/03/2024 7:32 PM CDT [facility] PROTEIN RANDOM (U) NEGATIVE NEGATIVE 08/03/2024 7:32 PM CDT [facility] GLUCOSE (U) NEGATIVE NEGATIVE 08/03/2024 7:32 PM CDT [facility] KETONES MG/DL (U) NEGATIVE NEGATIVE 08/03/2024 7:32 PM CDT [facility] BILIRUBIN (U) NEGATIVE NEGATIVE 08/03/2024 7:32 PM CDT [facility] BLOOD (U) NEGATIVE NEGATIVE 08/03/2024 7:32 PM CDT [facility] WBC/HPF NONE SEEN 0 - 5 /HPF 08/03/2024 7:32 PM CDT [facility] RBC/HPF 0-5 0 - 5 /HPF 08/03/2024 7:32 PM CDT [facility] EPI/HPF RARE /HPF 08/03/2024 7:32 PM CDT [facility] BACTERIA (U) FEW /HPF 08/03/2024 7:32 PM CDT [facility] URINE SPECIMEN OBTAINED BY CLEAN CATCH PROCEDURE / Unknown 08/03/2024 7:16 PM CDT us Nelida Carrizales MD URINE ORDERABLES Final Res ult Performing Organization Address [facility]/ZIP Co de Phone Number [facility] [address] [place] [address], [place] [phone] * LIPASE (08/03/2024 4:58 PM CDT) LIPASE 33 16 - 77 UNITS/L 08/03/2024 5:23 PM CDT [facility] 08/03/2024 4:58 PM CDT us Nelida Carrizales MD LABORATORY Final Resu lt Performing Organization Address [facility]/ZIP Co de Phone Number [facility] [address] [place] [address], [place] [phone] * (ABNORMAL) COMPREHENSIVE METABOLIC PANEL (08/03/2024 4:58 PM CDT) GLUCOSE 127(H) 70 - 99 MG/DL 08/03/2024 5:23 PM CDT [facility] BUN 9 7 - 18 MG/DL 08/03/2024 5:23 PM CDT [facility] CREATININE S/P/B 0.97 0.7 - 1.3 MG/DL 08/03/2024 5:23 PM CDT [facility] SODIUM S/P/B 140 136 - 145 MMOL/L 08/03/2024 5:23 PM CDT [facility] POTASSIUM S/P/B 3.7 3.5 - 5.1 MMOL/L 08/03/2024 5:23 PM CDT [facility] CHLORIDE S/P/B 104 100 - 108 MMOL/L 08/03/2024 5:23 PM [facility] CO2 23.9 21 - 32 MMOL/L 08/03/2024 5:23 PM [facility] CALCIUM S/P/B 8.6 8.5 - 10.1 MG/DL 08/03/2024 5:23 PM [facility] BILIRUBIN TOTAL S/P/B 0.5 0.2 - 1.2 MG/DL 08/03/2024 5:23 PM [facility] TOTAL PROTEIN S/P/B 7.0 6.4 - 8.2 G/DL 08/03/2024 5:23 PM [facility] ALBUMIN S/P/B 3.9 3.4 - 5.0 G/DL 08/03/2024 5:23 PM [facility] AST 25 15 - 37 U/L 08/03/2024 5:23 PM [facility] ALT 28 16 - 60 U/L 08/03/2024 5:23 PM [facility] ALKALINE PHOSPHATASE S/P/B 86 50 - 136 U/L 08/03/2024 5:23 PM [facility] ANION GAP 12.1 5 - 15 MMOL/L 08/03/2024 5:23 PM [facility] BUN CREATININE RATIO 9.3 6 - 26 08/03/2024 5:23 PM [facility] A/G RATIO 1.3 1.0 - 2.0 RATIO 08/03/2024 5:23 PM [facility] GFR ESTIMATE >90 >90 ML/MIN/1.7 3 M2 08/03/2024 5:23 PM [facility] Comment: NOTE: eGFR is not calculated for patients <18 years of age. This is an estimated GFR calculation using the new CKD EPI creatinine equation without race and so does not require a correction factor for race. This estimated GFR should not be used for calculating drug doses. 08/03/2024 4:58 PM CDT us Nelida Carrizales MD LABORATORY Final Resu lt [facility] [address] [place] [address], * (ABNORMAL) CBC W/DIFF AUTOMATED (08/03/2024 4:58 PM CDT) WBC 17.48(H) 4.4 - 11.0 x10'3/uL 08/03/2024 5:13 PM CDT [facility] RBC 4.64 4.50 - 5.90 x10'6/uL 08/03/2024 5:13 PM CDT [facility] HGB 13.2(L) 14.0 - 17.5 G/DL 08/03/2024 5:13 PM CDT [facility] HCT 39.1(L) 41.5 - 50.4 % 08/03/2024 5:13 PM CDT [facility] MCV 84.3 80.0 - 96.0 FL 08/03/2024 5:13 PM CDT [facility] MCH 28.4 26.5 - 31.4 PG 08/03/2024 5:13 PM CDT [facility] MCHC 33.8 31.9 - 34.8 G/DL 08/03/2024 5:13 PM CDT [facility] RDW 16.2(H) 12.3 - 14.3 % 08/03/2024 5:13 PM CDT [facility] PLT 302 151 - 353 x10'3/uL 08/03/2024 5:13 PM CDT [facility] MPV 10.1 9.7 - 11.9 FL 08/03/2024 5:13 PM CDT [facility] RBC MORPHOLOGY NORMAL 08/03/2024 5:13 PM CDT [facility] PLT MORPH. NORMAL 08/03/2024 5:13 PM CDT [facility] WBC MORPHOLOGY NORMAL 08/03/2024 5:13 PM CDT [facility] LYMPHOCYTES % 4.6(L) 15.8 - 45.0 % 08/03/2024 5:13 PM CDT [facility] NEUTROPHILS % 91.2(H) 42.1 - 71.9 % 08/03/2024 5:13 PM CDT [facility] MONOCYTES % 3.3(L) 5.7 - 12.5 % 08/03/2024 5:13 PM CDT [facility] EOSINOPHILS 0.0 0.0 - 5.6 % 08/03/2024 5:13 PM CDT [facility] BASOPHILS 0.3 0.0 - 1.3 % 08/03/2024 5:13 PM CDT [facility] ABS. NEUTROPHILS 15.94(H) 1.40 - 6.00 x10'3/uL 08/03/2024 5:13 PM CDT [facility] IMMATURE GRANS % 0.6(H) 0.0 - 0.5 % 08/03/2024 5:13 PM CDT [facility] ABS. LYMPHOCYTES 0.80 0.80 - 4.70 x10'3/uL 08/03/2024 5:13 PM CDT [facility] 08/03/2024 4:58 PM CDT us Nelida Carrizales MD LABORATORY Final Resu lt [facility] [address] [place] [address], [place] [phone] documented in this encounter Visit Diagnoses Diagnosis [...] RN) documented in this encounter Care Teams Hospital Fellow Relationship Specialty Start Date End Date Td Lopez MD PCP - General FAMILY PRACTICE 08/18/19 documented as of this encounter
--- OUTSIDE RECORDS SUMMARY | 2024-08-05 20:57 | XMS_ITS | Clinical Summary ---
Author Organization [facility] Address [address] [place] [phone] Phone Care Team Providers Care Elevator Constructor Helper Name Role Phone Unavailable Primary Care Provider [...] on file Legal Sex Male 7:38 PM BUSINESS ACCOUNT LEADER Gender Identity Not on file Sexual Orientation Not on file Last Filed Vital Signs Vital Sign Reading Time Taken Comments Blood Pressure 119/84 07/11/2022 2:03 AM BUSINESS ACCOUNT LEADER Pulse 80 07/11/2022 2:03 AM BUSINESS ACCOUNT LEADER Temperature 36.3 C (97.4 F) 07/11/2022 2:03 AM BUSINESS ACCOUNT LEADER Respiratory Rate 18 07/11/2022 2:03 AM BUSINESS ACCOUNT LEADER Oxygen Saturation 97% 07/11/2022 2:03 AM BUSINESS ACCOUNT LEADER Inhaled Oxygen Concentration - - Weight 79.4 kg (175 lb) 07/10/2022 8:06 PM BUSINESS ACCOUNT LEADER Height 177.8 cm (5' 10 ) 07/10/2022 8:06 PM BUSINESS ACCOUNT LEADER Body Mass Index 25.11 07/10/2022 8:06 PM BUSINESS ACCOUNT LEADER Plan of Treatment Health Maintenance Due Date Last Done Comments HEPATITIS B VACCINES (1 of 3 - 19+ 3-dose series) 2000 INFLUENZA VACCINE (#1) 2023 , 02/29/2020, 02/09/2018 COVID-19 Vaccine ( season) 2024 10/29/2021, 11/02/2020, 10/05/2020 DTAP/TDAP/TD VACCINES (2 - Td or Tdap) 10/30/2031 10/29/2021 HPV VACCINES Aged Out No longer eligi ble based on patient's age to complete this topic Insurance [facility] MEDICAID MEDICAID [place]
--- OUTSIDE RECORDS SUMMARY | 2024-08-05 20:57 | XMS_ITS | Encounter Summary ---
Author Organization [facility] Healthcare Address [address] [place] [address] Care Team Providers Care Hole Filler Name Role Phone Td Lopez MD Primary Care Provider + Angie Woodard MD Unavailable [phone] Vimal Woodruff MD Unavailable [phone] PastorAlannah MA Unavailable [phone] PastorAlannah fair MA Unavailable [phone] PastorAlannah MA Unavailable [phone] Encounter Details Date Type Department Care Team (Late st Contact Info) Description 12/30/2023 Orders Only [facility] Health Information Management [address] [place] [address] Scanning, Provider Social History Tobacco Use Types Packs/Day Years Used Date Smoking Tobacco: Every Day Cigarettes Smokeless Tobacco: Never Alcohol Use Standard Drinks/Week Comments Not Currently 0 (1 standard drink = 0.6 oz pur e alcohol) [facility] Utilities Answer Date Recorded In the past 12 months has [employer], gas, oil, or water company threatened [...] any clubs o r organizations such as buddhism groups, unions, fraternal or athletic groups, or [...] in a prison (including now)? No 09/21/2023 Personal Safety Answer Date Recorded Have you ever been in or are you currently in a harmful physical or emotional relationship or is someone making you feel afraid or unsafe? Denies 01/01/2024 Sex and Gender Information Value Date Recorded Sex Assigned at Not on file Legal Sex Male 3:38 AM MEDICAL FEE CLERK Gender Identity Not on file Sexual Orientation [...] on filedocumented in this encounter Care Teams Hole Filler Relationship Specialty Start Date End Date Td Lopez MD [address] [facility] [address] [place] [address] PCP - General Family Medicine 11/09/20 Angie Woodard MD [address] [facility] [address] [place] [address] Consulting Physician Gastroenterology 07/17/21 Vimal Woodruff MD [address] [facility] [address] [place] [address] Consulting Physician Gastroenterology 02/10/22 Alannah Baumann MA [address] [place] [address] [address] [place] [address] ACO Care Sleep Scientist 12/31/23 01/05/24 Alannah Baumann MA [address] [facility] [address] [place] [address] ACO Care Sleep Scientist 06/29/24 06/30/24 Alannah Baumann MA [address] [facility] [address] [place] [address] ACO Care Sleep Scientist 08/03/24 08/03/24 documented as of this encounter
[2024-08-05 21:00] VITALS: BP 117/80; PULSE 68; RESP 13
[2024-08-05 21:05] LABS: Alanine Aminotransferase 28 U/L (6-50); Albumin Level 4.6 g/dL (3.5-5.1); Alkaline Phosphatase 88 U/L (38-126); Anion Gap 13 mmol/L (4-12); Aspartate Amino Transferase 29 U/L (17-59); Bilirubin,Total 0.7 mg/dL (0.2-1.3); Blood Urea Nitrogen 10 mg/dL (9-20); Calcium 9.6 mg/dL (8.4-10.2); Carbon Dioxide 23 mmol/L (22-30); Chloride 103 mmol/L (98-107); Estimated CRCL calculation 92 ml/min; Estimated Glomerular Filt Rate > 60; Glucose 119 mg/dL (65-110); Lipase 45 U/L (23-300); Potassium 4.1 mmol/L (3.4-5.0); Sodium 139 mmol/L (137-145)
[2024-08-05] MEDS: PROMETHAZINE HCL 25 MG/ML AMPUL 12.5 MG IV PUSH (21:12)
[2024-08-05] MEDS: HYDROmorphone HCL INJ (*CRX) 1 MG/ML SYR IV PUSH (21:12)
[2024-08-05] MEDS: LACTATED RINGERS 1,000 ML 999 ML IV CONT (21:13)
[2024-08-05] MEDS: SODIUM CHLORIDE 0.9% IV 50 ML 999 ML (21:13)
[2024-08-05 21:42] VITALS: BP 113/88
[2024-08-05 21:45] VITALS: BP 128/94
[2024-08-06 00:01] VITALS: BP 117/82; PULSE 90; RESP 16; O2SAT 98
[2024-08-06] MEDS: ONDANSETRON INJ 4 MG/2 ML VIAL IV PUSH (00:02)
[2024-08-06] MEDS: KETOROLAC 15 MG/ML VIAL (*BKC) IV PUSH (00:02)
[2024-08-06] MEDS: FAMOTIDINE 20 MG/2 ML VIAL IV PUSH (00:02)
== END 2024-08-06 00:13 | disposition home or self-care (01) ==
PROVIDERS: Emergency Medicine; Emergency Provider Student in an Organized Health Care Education/Training Program; PCP Family Medicine
DX: K86.1 Other chronic pancreatitis (principal); R11.15 Cyclical vomiting syndrome unrelated to migraine; I10 Essential (primary) hypertension; F17.210 Nicotine dependence, cigarettes, uncomplicated
CPT/HCPCS: 36415; 74177; 80053; 83690; 85025; 96361; 96374; 96375; 99284; J1171; J1885; J2405; J2550; J7120; Q9967

== ENCOUNTER 2024-10-10 22:08 | Emergency (ER) | payer SELFPAY ==
--- OUTSIDE RECORDS SUMMARY | 2024-10-10 22:10 | XMS_ITS | Encounter Summary ---
Author Organization [facility] Healthcare Address [address] [place] [address] Care Team Providers Care Client Solutions Director Name Role Phone Td Lopez MD Primary Care Provider + Angie Woodard MD Unavailable [phone] Vimal Woodruff MD Unavailable [phone] PastorAlannah MA Unavailable [phone] PastorAlannah fair MA Unavailable [phone] PastorAlannah fair MA Unavailable [phone] Eun Arana RN Unavailable [phone] Lakshmi Garcia LPN Unavailable [phone] Encounter Details Date Type Department Care Team (Late st Contact Info) Description 12/30/2023 Orders Only [facility] Health Information Management [address] [place] [address] Scanning, Provider Social History Tobacco Use Types Packs/Day Years Used Date Smoking Tobacco: Every Day Cigarettes Smokeless Tobacco: Never Alcohol Use Standard Drinks/Week Comments Not Currently 0 (1 standard drink = 0.6 oz pur e alcohol) [facility] Utilities Answer Date Recorded In the past [...] often do you attend chur ch or hinduism services? Never 09/21/2023 Do you belong to any clubs o r organizations such as hoahaoism groups, unions, fraternal or athletic groups, or [...] in a snf (including now)? No 09/21/2023 Personal Safety Answer Date Recorded Have you ever been in or are you currently in a harmful physical or emotional relationship or is someone making you feel afraid or unsafe? Denies 01/01/2024 Sex and Gender Information Value Date Recorded Sex Assigned at Not on file Legal Sex Male 3:38 AM PERSONAL INVESTMENT ADVISER Gender Identity Not on file Sexual Orientation [...] on filedocumented in this encounter Care Teams Client Solutions Director Relationship Specialty Start Date End Date Td Lopez MD [address] [facility] [address] [place] [address] PCP - General Family Medicine 11/09/20 Angie Woodard MD [address] [place] [address] Consulting Physician Gastroenterology 07/17/21 Vimal Woodruff MD [address] [place] [address] Consulting Physician Gastroenterology 02/10/22 Alannah [address]ASS [address] [place] [address] [address] [place] [address] ACO Care Board Layer 12/31/23 01/05/24 Alannah Baumann MA [address] [facility] [address] [place] [address] ACO Care Board Layer 06/29/24 06/30/24 Alannah Baumann MA [address] [facility] [address] [place] [address] ACO Care Board Layer 08/03/24 08/03/24 Eun Arana RN [address] [place] [address] [address] [place] [address] Inclusion Intern 08/17/24 08/25/24 Lakshmi Garcia LPN [address] [place] [address] [address] [place] [address] Inclusion Intern 10/05/24 10/05/24 documented as of this encounter
--- OUTSIDE RECORDS SUMMARY | 2024-10-10 22:10 | XMS_ITS | Clinical Summary ---
Author Organization [facility] Address [address] [place] [phone] Phone Care Team Providers Care Primary Health Care Nurse Name Role Phone Unavailable Primary Care Provider [...] on file Legal Sex Male 7:38 PM RADIO/TV TECHNICIAN Gender Identity Not on file Sexual Orientation Not on file Last Filed Vital Signs Vital Sign Reading Time Taken Comments Blood Pressure 119/84 07/11/2022 2:03 AM RADIO/TV TECHNICIAN Pulse 80 07/11/2022 2:03 AM RADIO/TV TECHNICIAN Temperature 36.3 C (97.4 F) 07/11/2022 2:03 AM RADIO/TV TECHNICIAN Respiratory Rate 18 07/11/2022 2:03 AM RADIO/TV TECHNICIAN Oxygen Saturation 97% 07/11/2022 2:03 AM RADIO/TV TECHNICIAN Inhaled Oxygen Concentration - - Weight 79.4 kg (175 lb) 07/10/2022 8:06 PM RADIO/TV TECHNICIAN Height 177.8 cm (5' 10) 07/10/2022 8:06 PM RADIO/TV TECHNICIAN Body Mass Index 25.11 07/10/2022 8:06 PM RADIO/TV TECHNICIAN Plan of Treatment Health Maintenance Due Date Last Done Comments HEPATITIS B VACCINES (1 of 3 - 19+ 3-dose series) 2000 INFLUENZA VACCINE (#1) 2023 , 02/29/2020, 02/09/2018 COVID-19 Vaccine ( season) 2024 10/29/2021, 11/02/2020, 10/05/2020 DTAP/TDAP/TD VACCINES (2 - Td or Tdap) 10/30/2031 10/29/2021 HPV VACCINES Aged Out No longer eligi ble based on patient's age to complete this topic Insurance [facility] MEDICAID MEDICAID [place]
--- OUTSIDE RECORDS SUMMARY | 2024-10-10 22:11 | XMS_ITS ---
Author Organization [facility] Address [address] [place] [address] Care Team Providers Care Musculoskeletal Physician Name Role Phone John TUCKER, Td Primary Care Provider Unavaila jenny FIGUEROA SMALL PARTS SHAPER OPERATOR, NATALIYA Unavailable IFRAH TUCKER, BRODERICK Unavailable REASON FOR VISIT ERCP stent pull INPT Encounters Encounter Location Date Provider Diagnosis [facility] - Op [address] [facility] Scheduling [place] [id number] 09/23/2023 BRODERICKNICKY RG Plan Of Treatment No Information Progress Notes * Donovan BROWN MDOB: 2 (44 yo M)Acc No.[id number]:09/23/2023 Patient: Donovan HASSAN Gaby Provider: William Rg MD, FASGE :1980 A ge:43 Y S ex:Male Date:09/23/2023 Address:[address] Pcp:Td Lopez MD * * Electronic signature of ROSETTE RG MD, MD on 10/10/2024 at 11:11 PM EDT Sign off status: Pending * Provider: William Rg MD, FASGE Date: 0 09/23/2023 Generated for Printi ng/Faxing/eTransmitting on: 0 10/10/2024 11:11 PM EDT
--- OUTSIDE RECORDS SUMMARY | 2024-10-10 22:11 | XMS_ITS | Encounter Summary ---
Author Organization [facility] Healthcare Address [address] [place] [address] Care Team Providers Care Service Architect Name Role Phone Td Lopez MD Primary Care Provider + Angie Woodard MD Unavailable [phone] Vimal Woodruff MD Unavailable [phone] PastorAlannah MA Unavailable [phone] PastorAlannah fair MA Unavailable [phone] PastorAlannah MA Unavailable [phone] Eun Arana RN Unavailable [phone] Lakshmi Garcia LPN Unavailable [phone] Encounter Details Date Type Department Care Team (Late st Contact Info) Description 12/21/2017 Documentation [place] [address] [place] [id number] Shannan Farfan, JOHN Social History Tobacco Use Types Packs/Day Years Used Date Smoking Tobacco: Every Day Sex and Gender Information Value Date Recorded Sex Assigned at Not on file Legal Sex Male 3:38 AM ACCOUNTANT SUPERVISOR Gender Identity Not on file Sexual [...] COVID: Suspected 06/27/2021 06/27/2021 06/27/2021 12:53 PM ACCOUNTANT SUPERVISOR COVID19 06/27/2021 06/27/2021 07/08/2021 3:05 AM ACCOUNTANT SUPERVISOR COVID: Recovered Comment:Added based on recent COVID infection. 07/08/2021 07/14/2021 11/05/2021 3:05 AM C DT COVID: Suspected 05/20/2022 05/20/2022 05/20/2022 2:32 AM ACCOUNTANT SUPERVISOR COVID: Suspected 09/20/2023 09/20/2023 09/20/2023 9:26 PM CDT COVID: Suspected 10/04/2023 10/04/2023 10/04/2023 3:55 PM CDT documented as of this encounter Care Teams Service Architect Relationship Specialty Start Date End Date Td Lopez MD [address] [facility] [address] [place] [address] PCP - General Family Medicine 11/09/20 Angie Woodard MD [address] [facility] [address] [place] [address] Consulting Physician Gastroenterology 07/17/21 Vimal Woodruff MD [address] [facility] [address] [place] [address] Consulting Physician Gastroenterology 02/10/22 Alannah Baumann MA [address] [facility] [address] [place] [address] ACO Care Supervisory Investigative Specialist 12/31/23 01/05/24 Alannah Baumann MA [address] [facility] [address] [place] [address] ACO Care Supervisory Investigative Specialist 06/29/24 06/30/24 Alannah Baumann MA [address] [place] [address] [address] [place] [address] ACO Care Supervisory Investigative Specialist 08/03/24 08/03/24 Eun Arana RN [address] [place] [address] [address] [place] [address] Fuel Truck Driver 08/17/24 08/25/24 Lakshmi Garcia LPN [address] [place] [address] [address] [place] [address] Fuel Truck Driver 10/05/24 10/05/24 documented as of this encounter
--- OUTSIDE RECORDS SUMMARY | 2024-10-10 22:11 | XMS_ITS ---
Author Organization [facility] Address [address] [place] [address] Care Team Providers Care Fishing Tool Supervisor Name Role Phone John TUCKER, Td Primary Care Provider Tucker FIGUEROA NP, NATALIYA Porras [phone] REASON FOR VISIT FU ER Visit Encounters Encounter Location Date Provider Diagnosis [facility] [address] [place] [address] 02/29/2024 NATALIYA FIGUEROA Plan Of Treatment No Information Progress Notes * Donovan BROWN MDOB: 2 (44 yo M)Acc No.[id number]:02/29/2024 Progress Notes Patient: Donovan HASSAN Appointment Provider: Enrrique Figueroa CNP :1980 A ge:43 Y S ex:Male Date:02/29/2024 [address] [facility] Pcp:Td Lopez MD Subjective: * Chief Complaints: * 1 . FU ER Visit. * Medical History: Objective: * Vitals: Assessment: Plan: * Treatment: * * Electronic signature of AMANDA FIGUEROA NP, MSN ACCOUNTING TUTOR-BC on 10/10/2024 at 11:10 PM EDT Sign off status: Pending * Appointment Provider: Enrrique Figueroa CNP Date: 1 Generated for Printing/Faxing/eTransmitting on: 0 10/10/2024 11:10 PM EDT
--- OUTSIDE RECORDS SUMMARY | 2024-10-10 22:11 | XMS_ITS | Patient Health Record ---
Author Organization [facility] Address [address] [place] [address] Care Team Providers Care Form Maker Plaster Name Role Phone John TUCKER, Td Primary Care Provider Tucker FIGUEROA NP, NATALIYA Unavailable [phone] Allergies Allergen (clinical drug ingredient) Drug/Non Drug Allergy documented on EMR Reaction Allergy Type Onset Date Status Substance with sulfonamide structure and antibacterial mechanism of action (substance) sulfa (uncoded) Unknown Allergy Active metoclopramide Metoclopramide HCl Unknown Drug Allergy Active doxycycline Doxycycline Unknown Drug Allergy Act nemesio Reason For Referral No Information Medications Medication SIG (Take, Route, Frequency, Duration) Notes [...] to dissolve Orally Once a day Active Problems Problem Type SNOMED Code ICD Code Onset Dates Problem Status W/U Status Risk Notes Problem Chronic pancreatitis (219966856) Other chronic pancreatitis (K86.1) Active confirmed Vital Signs Heart Rate 88 /min 10/23/2023 Blood pressure diastolic 81 mm Hg 10/23/2023 Height 70 in 10/23/2023 Blood pressure systolic 110 mm Hg 10/23/2023 Weight 159 lbs 10/23/2023 BMI 22.81 kg/m2 10/23/2023 Encounters Encounter Location Date Provider Diagnosis [facility] [address] [place] [address] 10/23/2023 NATALIYA FIGUEROA Other chronic pancreatitis K86.1 ; Epigastric pain R10.13 ; Nausea R11.0 and Diarrhea, unspecified R19.7 Assessments Encounter Date Diagnosis (ICD Code) Assessment Notes Treatment Notes Treatment Clinical Notes [...] and stressed importance of compliance with plan. Plan Of Treatment No Information Insurance Providers Payer Name Payer Address Payer Phone Subscriber Number Group Number Insured Name Patient Relationship to Insured Coverage Start Date Coverage End Date [address] [id number] Donovan Bailey Self - patient is the insured Medical (General) History Medical History History ICD Code chronic pancreatitis cyclic vomiting hyperemesis cannabis Surgical History Surgery Date(Month/Year) cholecystectomy ERCP
--- OUTSIDE RECORDS SUMMARY | 2024-10-10 22:11 | XMS_ITS | Referral Summary ---
Author Organization [facility] Address [address] [place] [address] Care Team Providers Care Boiler Tube Blower Name Role Phone Td Lopez MD Primary Care Provider + Angie Woodard MD Unavailable [phone] Vimal Woodruff MD Unavailable [phone] Encounters Date Type Department Care Team Description 10/08/2024 7:54 PM CDT - 10/08/2024 8:06 PM T Emergency [facility] Emergency Department [address] [place] [address] Chronic abdominal pain (Primary Dx) Discharge Disposition: Discharge to home or self care 10/07/2024 5:29 AM CDT - 10/07/2024 8:34 AM T Emergency [address] [address] Jose Francisco Harper DO Prograis, Shannon Smith, MD Abdominal pain (Primary Dx); Chronic pancreatitis, unspecified pancreatitis type (HCC) Discharge Disposition: Discharge to home or self care 10/06/2024 11:00 AM CDT Office Visit [facility] [address] [facility] [address] [place] [address] [phone] Td Lopez MD Abdominal pain (Primary Dx); Other chronic pancreatitis (HCC); Gastroesophageal reflux disease without esophagitis; Irritable bowel syndrome with both constipation and diarrhea 10/05/2024 [facility] IP Outreach [address] [address] Lakshmi Garcia LPN 10/04/2024 Telephone [facility] Care [address] [place] [address] [phone] Td Lopez MD schedule [facility] appt 10/02/2024 9:53 PM CDT - 10/03/2024 11:39 AM CDT Hospital Encounter [facility] Center [address] [place] [address] María Elena Calvo MD Medavaram, Atul, MD Sada, Kahmalia-Kalee Conceptia, MD Chowdhury, Farhanaz, MD Abdominal pain (Primary Dx); Acute pancreatitis, unspecified complication status, unspecified pancreatitis type; Pain, dental Discharge Disposition: Discharge to home or self care 09/30/2024 5:44 PM CDT - 09/30/2024 8:58 PM CDT Emergency [facility] Emergency Department [address] [place] [address] Radha Casas DO Abdominal pain (Primary Dx); Urinary tract infection with hematuria, site unspecified Discharge Disposition: Discharge to home or self care 08/23/2024 11:00 AM CDT Office Visit [address] [phone] Td Lopez MD Pain, dental (Primary Dx); Abdominal pain, epigastric 08/16/2024 3:42 AM CDT - 08/16/2024 6:26 AM CDT Emergency [facility] Emergency Department [address] [place] [address] Ashlie Burgess MD Abdominal pain, epigastric (Primary Dx) Discharge Disposition: Discharge to home or self care 08/15/2024 [facility] IP Outreach [address] [address] Lakshmi Garcia LPN 08/13/2024 4:07 PM CDT - 08/13/2024 8:39 PM CDT Emergency [facility] Emergency Department [address] [place] [phone] Crista Bower MD Abdominal pain, generalized (Primary Dx) Discharge Disposition: Discharge to home or self care 08/10/2024 2:56 AM CDT - 08/12/2024 12:59 PM CDT Hospital Encounter [address] [phone] Domenic Arias MD Shimotani, DO Sadi Marks, Reinaldo Martel MD Acute pancreatitis, unspecified complication status, unspecified pancreatitis type (Primary Dx); Abdominal pain, generalized Discharge Disposition: Discharge to home or self care 08/11/2024 3:31 PM CDT Anesthesia Event [facility] [address] [place] [phone] Juan Daniel Freed MD 08/11/2024 3:15 PM CDT - 08/11/2024 3:45 PM CDT Surgery [facility] [address] [place] [phone] Georges Luna MD EGD 08/07/2024 2:23 AM CDT - 08/07/2024 5:31 AM CDT Emergency [facility] Emergency Department [address] [place] [phone] Justice Patel MD Abdominal pain, generalized (Primary Dx) Discharge Disposition: Discharge to home or self care 08/05/2024 Orders Only [facility] Health Information Management [address] [place] [id number] Scanning, Provider 08/04/2024 [facility] ED Outreach [address] [address] Alannah Baumann MA 08/03/2024 [facility] ED Outreach [address] [address] Alannah Baumann MA 08/03/2024 2:13 PM CDT - 08/03/2024 3:27 PM CDT [facility] Emergency Department [address] [place] [address] Freddy Yao DO Chronic abdominal pain (Primary Dx); Drug-seeking behavior Discharge Disposition: Discharge to home or self care 08/02/2024 8:48 AM CDT - 08/02/2024 10:46 AM CDT [facility] Emergency Department [address] [place] [phone] Chronic abdominal pain (Primary Dx) Discharge Disposition: Discharge to home or self care from Last 3 Months Allergies Active Allergy [...] Medium Reaction: neurological symptoms per patient Medications hyoscyamine (OSCIMIN) 0.125 mg Take 1 tablet (0.125 mg total) by mouth every 8 (eight) hours as needed 024 Active ondansetron ODT (ZOFRAN-ODT) 4 mg disintegrating tablet Take 1 tablet (4 mg total) by mouth every 8 (eight) hours as needed for nausea or vomiting 20 tablet 025 Active lidocaine viscous (XYLOCAINE) 2 % solutionIndicatio ns:Mouth Irritation Apply 10 mL to the mouth or throat every 3 (three) hours 200 mL 025 Active chlorhexidine (PERIDEX) 0.12 % oral rinse Swish and spit 15 mL 2 (two) times a day 118 mL 025 Active ibuprofen (ADVIL,MOTRIN) 400 mg tablet Take 1 tablet (400 mg total) by mouth every 8 (eight) hours as needed for pain 20 tablet 05/26/2 025 Active HYDROcodone-aceta minophen (NORCO) 5-325 mg per tabletIndications :Pain Take 1 tablet by mouth every 8 (eight) hours as needed for pain 12 tablet Active famotidine (PEPCID) 40 mg tabletIndications :Gastroesophageal reflux disease without esophagitis Take 1 tablet (40 mg total) by mouth daily 90 tablet [address] (PROTONIX) 40 mg EC tabletIndications :Treatment of Non-Bleeding Gastric Disorder Take 1 tablet (40 mg total) by mouth daily 90 tablet 1 Active prochlorperazine (COMPAZINE) 10 mg tablet Take 1 tablet (10 mg total) by mouth 2 (two) times a day as needed for nausea or vomiting 10 tablet 2024 Discontinued(S top Taking at Discharge) famotidine (PEPCID) 40 mg tablet Take 1 tablet (40 mg total) by mouth daily 30 tablet 2024 Discontinued(R eorder) lidocaine viscous (XYLOCAINE) 2 % solutionIndicatio ns:Mouth Irritation Apply 10 mL to the mouth or throat every 3 (three) hours 200 mL 3 2024 Discontinued cephalexin (KEFLEX) 500 mg capsule Take 1 capsule (500 mg total) by mouth 2 (two) times a day for 10 days 20 capsule 2024 Discontinued(S top Taking at Discharge) amoxicillin-clavu lanate (AUGMENTIN) 875-125 mg per tabletIndications :gum infection Take 1 tablet (875 mg of amoxicillin total) by mouth 2 (two) times a day for 5 days 10 tablet 2024 HYDROcodone-aceta minophen (NORCO) 5-325 mg per tabletIndications :Pain Take 1 tablet by mouth every 8 (eight) hours as needed for pain 12 tablet 2024 Discontinued(R eorder) pantoprazole DR (PROTONIX) 40 mg EC tabletIndications :Treatment of Non-Bleeding Gastric Disorder Take 1 tablet (40 mg total) by mouth daily 30 tablet 2024 Discontinued(R eorder) Active Problems Problem Noted Date Diagnosed Date Abdominal pain 10/03/2024 Acute pancreatitis, unspecif ied complication status, unspecified pancreatitis type 08/10/2024 Neck pain 03/25/2024 Assessment & Plan (03/25/2024 11:50 AM PUTTY TINTER MAKER): - suspect just muscle strain - will check xray - offered PT but pt refused. 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 Assessment & Plan (03/25/2024 11:49 AM PUTTY TINTER MAKER): - ref to derm for eval [...] pain Assessment & Plan (03/25/2024 11:49 AM PUTTY TINTER MAKER): - poor control - continue hyosciamine, famotidine, zofran - ref to GI for continued treatment Assessment & Plan (03/20/2023 11:07 AM PUTTY TINTER MAKER): - stable - continue current medication Duodenal papillary stenosis 11/27/2020 Irritable bowel syndrome wit h both constipation and diarrhea 07/15/2019 Overview (07/15/2019): - pt with abdominal [...] prn Assessment & Plan (07/15/2019 11:44 AM PUTTY TINTER MAKER): - stable - continue bentyl and amitriptyline per GI recs Pancreatic insufficiency 07/15/2019 Overview (07/15/2019): - pt [...] medication Assessment & Plan (07/15/2019 11:44 AM PUTTY TINTER MAKER): - stable - continue creon Annual [...] able Assessment & Plan (07/15/2019 11:46 AM PUTTY TINTER MAKER): - encourage healthy diet, exercise - check labs - encouraged quitting smoking 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 Assessment & Plan (07/15/2019 11:37 AM PUTTY TINTER MAKER): - encouraged pt to quit smoking [...] GI Assessment & Plan (03/20/2023 11:07 AM PUTTY TINTER MAKER): - stable - continue current medication per GI Cyclic vomiting syndrome 02/14/2015 Overview (10/18/2018): Last Assessment & Plan: - established, controlled - continue home nexium Assessment & Plan (10/14/2022 8:30 PM CDT): - uncontrolled - continue zofran prn Sphincter of Oddi dysfunction Normocytic normochromic anemia Marijuana use Resolved Problems Problem Noted Date Diagnosed Date Resolved Date Pain, dental 10/03/2024 10/06/2024 Acute pancreatitis without i nfection or necrosis, unspecified pancreatitis type 11/15/2023 10/06/2024 Nausea and vomiting 02/03/2023 03/18/20 Postprandial vomiting 02/03/20232023 Acute gastritis without hemorrhage [...] 09/17/202209/08 Assessment & Plan (03/20/2023 11:08 AM PUTTY TINTER MAKER): - stable off meds - will [...] 09/25/2023 Assessment & Plan (03/26/2021 11:41 AM PUTTY TINTER MAKER): - stable today - continue current [...] lexapro Assessment & Plan (07/15/2019 11:38 AM PUTTY TINTER MAKER): - stable - continue current plan [...] medication Assessment & Plan (07/15/2019 11:38 AM PUTTY TINTER MAKER): - stable - continue omeprazole and carafate Viral illness 07/08/2019 02/12/2021 Assessment & Plan (07/09/2019 9:12 AM PUTTY TINTER MAKER): Medrol Dosepak as directed. Recommended Mucinex [...] (12/03/2020 3:05 PM CDT): - continue with crechristophe and maría elenadavid prn Other chronic pancreatitis 09/17/2018 1 05/26/2020 Overview (09/17/2018): Added automatically from request for surgery [id number] Assessment & Plan (02/12/2021 11:23 AM CDT): [...] medication Assessment & Plan (07/15/2019 11:36 AM PUTTY TINTER MAKER): - controlled - continue current plan [...] 0.6 oz pur e alcohol) [facility] [employer] Answer Date Recorded In the past 12 months has e [employer], gas, oil, or water [employer] threatened to shut off services in your home? No 08/11/2024 Social Connection and Isolat ion Panel [NHANES] Answer Date Recorded In a typical week, how many times do you talk on the phone with family, friends, or neighbors? More than three times a week 08/11/2024 How often do you get togethe r with friends or relatives? More than three times a week 08/11/2024 How often do you attend chur ch or evangelical services? Never 08/11/2024 Do you belong to any clubs o r organizations such as druze groups, unions, fraternal or athletic groups, or school groups? No 08/11/2024 How often do you attend meet ings of the clubs or organizations you belong to? Never 08/11/2024 Are you , , di vorced, , never , or living with a partner? Never 08/11/2024 AUDIT-C Answer Date Recorded Q1: How often [...] care, and heating? Not hard at all 08/11/2024 PHQ-2 Answer Date Recorded PHQ-2 Total Score (If total score is 3 or more points, staff should administer the PHQ-9) 0 08/23/2024 Hunger Vital Sign Answer Date Recorded Within the past 12 months, y ou worried that your food would run out before you got the money to buy more. Never true 08/12/19 25 Within the past 12 months, t he food you bought just didn't last and you didn't have money to get more. Never true 08/11/2024 PRAPARE - Transportation Answer Date Re corded In the past 12 months, has l ack of transportation kept you from medical appointments or from getting medications? No 07/2024 In the past 12 months, has l ack of transportation kept you from meetings, work, or from getting things needed for daily living? No 08/11/2024 Housing Stability Vital Sign Answer Milton e [...] place to sleep or slept in a jail (including now)? No 09/21/2023 PHQ-9 Answer Date Recorded PHQ-9 Total Score 5 03/25/2024 Housing Stability Vital Sign Answer [place] e Recorded In the last 12 months, was t here a time when you were not able to pay the mortgage or rent on time? No 08/11/2024 In the past 12 months, how m any times have you moved where you were living? 0 08/11/2024 At any time in the past 12 m [facility], were you homeless or living in a jail (including now)? No 08/11/2024 Personal Safety Answer Date Recorded Have you ever been in or are you currently in a harmful physical or emotional relationship or is someone making you feel afraid or unsafe? Denies 10/08/2024 Sex and Gender Information Value Date Recorded Sex Assigned at Not on file Legal Sex Male 3:38 AM PUTTY TINTER MAKER Gender Identity Not on file Sexual Orientation Not on file Last Filed Vital Signs Vital Sign Reading Time Taken Comments Blood Pressure 154/121 10/08/2024 7:18 PM CDT Pulse 88 10/08/2024 7:18 PM CDT Temperature 37.3 C (99.1 F) 10/08/2024 7:18 PM CDT Respiratory Rate 20 10/08/2024 7:18 PM CDT Oxygen Saturation 98% 10/08/2024 7:18 PM CDT Inhaled Oxygen Concentration - - Weight 73.5 kg (162 lb 0.6 oz) 10/08/2024 7:18 P M CDT Height 177.8 cm (5' 10) 10/08/2024 7:18 PM CDT Body Mass Index 23.25 10/08/2024 7:18 PM CDT Plan of Treatment Not on file Medical Devices Explanted Type Area Color Specialist Device Identifier Shelf Expiration Date Model / Serial / Lot [employer] [id number] Connell Flexi-Stent 7fr 5cm Small Pigtail Flexible .035in Stent - [id number] Implanted:Qty: 1 on 09/18/2018 by Vimal Woodruff MD at [facility] Explanted:Qty: 1 on 09/20/2018 at [facility] Stent N/A: Pancreas [employer] 06/10/2023 [id number] / / [id number] Conmed Gina [id number] [place] Viabil 10mm 8.5fr 6cm 200cm Fully Covered Self Expand Pull - [id number] - [id number] Implanted:Qty: 1 on 09/18/2018 by Vimal Woodruff MD at [facility] Explanted:Qty: 1 on 09/20/2018 at [facility] Stent N/A: Bile Duct Conmed Gina 06/29/2021 [id number] / [id number] / [employer] Connell Flexi-Stent 7fr 9cm Small Pigtail Flexible .035in Stent 6575 - [id number] Implanted:Qty: 1 on 02/07/2022 by Vimal Woodruff MD at [facility] Explanted:Qty: 1 on 02/10/2022 by Vimal Woodruff MD at [facility] Stent N/A: Pancreas [employer] 09/07/2026 [id number] / / [id number] [employer] Gina Wallflex 10mm X 60mm Fully Covered Biliary [id number] - [id number] Implanted:Qty: 1 on 02/07/2022 by Vimal Woodruff MD at [facility] Explanted:Qty: 1 on 02/10/2022 by Vimal Woodruff MD at [facility] Stent N/A: Bile Duct [employer] Gina 11/04/2023 [id number] / / [id number] [employer] Connell Flexi-Stent 7fr 9cm Small Pigtail Flexible .035in Stent 6575 - [id number] Implanted:Qty: 1 on 09/21/2023 by Vimal Woodruff MD at [facility] Explanted:Qty: 1 on 09/23/2023 by Vimal Woodruff MD at [facility] Stent N/A: Pancreas [employer] 03/11/2028 [id number] / / [id number] Description:Not present at b eginning of case. Self migrated out [employer] Gina Wallflex 10mm X 60mm Fully Covered Biliary [id number] - [id number] Implanted:Qty: 1 on 09/21/2023 by Vimal Woodruff MD at [facility] Explanted:Qty: 1 on 09/23/2023 by Vimal Woodruff MD at [facility] Stent N/A: Bile Duct [employer] Gina 08/02/2025 [id number] / / [id number] Procedures Procedure Name Priority Date/Time Associated Diagnosis Comments EGFR STAT 10/08/2024 7:25 PM CDT DIFFERENTIAL AUTO STAT 10/08/2024 7:25 PM CDT LIPASE STAT 10/08/2024 7:25 PM CDT COMPREHENSIVE METABOLIC PANEL STAT 7:25 PM CDT CBC WITH AUTO DIFFERENTIAL STAT 10/08 7:25 PM CDT CTA CHEST ABDOMEN PELVIS ED 025 6:41 AM CDT XR CHEST 1 VIEW ED 10/07/2024 6:31 AM CDT TROPONIN T HIGH-SENSITIVITY 2-HOUR Timed 10/07/2024 6:05 AM CDT ECG 12-LEAD STAT 10/07/2024 4:11 AM CDT URINALYSIS AND REFLEX TO MICROSCOPIC AND CULTURE STAT 10/07/2024 4:06 AM CDT EGFR STAT 10/07/2024 4:00 AM CDT DIFFERENTIAL AUTO STAT 10/07/2024 4:00 AM CDT TROPONIN T HIGH-SENSITIVITY SERIES (BASELINE, 2HR, 4HR, 6HR) STAT 10/07/2024 4:00 AM CDT LIPASE STAT 10/07/2024 4:00 AM CDT COMPREHENSIVE METABOLIC PANEL STAT 4:00 AM CDT CBC WITH AUTO DIFFERENTIAL STAT 10/07 4:00 AM CDT EGFR Routine 10/03/2024 7:08 AM CDT CBC WITHOUT DIFFERENTIAL Routine 025 7:08 AM CDT LIPASE Routine 10/03/2024 7:08 AM CDT BASIC METABOLIC PANEL Routine 10/03/2024 7:08 AM CDT LIPID PANEL Routine 10/03/2024 1:[address] ABDOMEN PELVIS W CONTRAST ED Urgent/I P Urgent 10/03/2024 1:15 AM CDT DRUGS OF ABUSE SCREEN, URINE WITH REFLEX CONFIRMATION Routine 10/03/2024 12:51 AM CDT URINALYSIS AND REFLEX TO MICROSCOPIC AND CULTURE STAT 10/02/2024 10:09 PM CDT EGFR STAT 10/02/2024 9:51 PM CDT DIFFERENTIAL AUTO STAT 10/02/2024 9:51 PM CDT LIPASE STAT 10/02/2024 9:51 PM CDT COMPREHENSIVE METABOLIC PANEL STAT 9:51 PM CDT CBC WITH AUTO DIFFERENTIAL STAT 10/02 9:[address] ABDOMEN PELVIS W CONTRAST ED 6:38 PM CDT URINALYSIS, MICROSCOPIC ONLY STAT 5:55 PM CDT URINALYSIS AND REFLEX TO MICROSCOPIC AND CULTURE STAT 09/30/2024 5:55 PM CDT EGFR STAT 09/30/2024 4:01 PM CDT DIFFERENTIAL AUTO STAT 09/30/2024 4:01 PM CDT LIPASE STAT 09/30/2024 4:01 PM CDT COMPREHENSIVE METABOLIC PANEL STAT 4:01 PM CDT CBC WITH AUTO DIFFERENTIAL STAT 09/30 4:[address] ABDOMEN PELVIS W CONTRAST ED 12/2024 4:01 AM CDT EGFR STAT 08/16/2024 3:42 AM CDT DIFFERENTIAL AUTO STAT 08/16/2024 3:42 AM CDT LIPASE STAT 08/16/2024 3:42 AM CDT COMPREHENSIVE METABOLIC PANEL STAT 3:42 AM CDT CBC WITH AUTO DIFFERENTIAL STAT 08/16 3:42 AM CDT SEPSIS LACTATE WITH REFLEX STAT 08/13 5:52 PM CDT EGFR STAT 08/13/2024 4:29 PM CDT DIFFERENTIAL AUTO STAT 08/13/2024 4:29 PM CDT LIPASE STAT 08/13/2024 4:29 PM CDT COMPREHENSIVE METABOLIC PANEL STAT 4:29 PM CDT CBC WITH AUTO DIFFERENTIAL STAT 08/13 4:29 PM CDT EGFR Routine 08/12/2024 10:58 AM CDT CBC WITHOUT DIFFERENTIAL Routine 025 10:58 AM CDT BASIC METABOLIC PANEL Routine 08/12/2024 10:58 AM CDT ESOPHAGOGASTRODUODENOSCOPY 08/11 3:31 PM CDT Abdominal pain, generalized EGD 08/11/2024 3:25 PM CDT EGFR Routine 08/11/2024 6:15 AM CDT DIFFERENTIAL AUTO Routine 08/11/2024 6:15 AM CDT CBC WITH AUTO DIFFERENTIAL Routine 08/11 6:15 AM CDT MAGNESIUM Routine 08/11/2024 6:15 AM CDT BASIC METABOLIC PANEL Routine 08/11/2024 6:[address] ABDOMEN PELVIS W CONTRAST ED 06/2024 5:31 AM CDT EGFR STAT 08/10/2024 3:54 AM CDT DIFFERENTIAL AUTO STAT 08/10/2024 3:54 AM CDT LIPASE STAT 08/10/2024 3:54 AM CDT COMPREHENSIVE METABOLIC PANEL STAT 3:54 AM CDT CBC WITH AUTO DIFFERENTIAL STAT 08/10 3:54 AM CDT EGFR STAT 08/07/2024 3:20 AM CDT DIFFERENTIAL AUTO STAT 08/07/2024 3:20 AM CDT LIPASE STAT 08/07/2024 3:20 AM CDT COMPREHENSIVE METABOLIC PANEL STAT 3:20 AM CDT CBC WITH AUTO DIFFERENTIAL STAT 08/07 3:20 AM CDT SCAN - RADIOLOGY/IMAGING 08/05/2024 URINALYSIS AND REFLEX TO MICROSCOPIC AND CULTURE STAT 08/03/2024 1:50 PM CDT EGFR STAT 08/03/2024 1:45 PM CDT DIFFERENTIAL AUTO STAT 08/03/2024 1:45 PM CDT LIPASE STAT 08/03/2024 1:45 PM CDT COMPREHENSIVE METABOLIC PANEL STAT 1:45 PM CDT CBC WITH AUTO DIFFERENTIAL STAT 08/03 1:[address] ABDOMEN PELVIS W CONTRAST ED 9:43 AM CDT URINALYSIS, MICROSCOPIC ONLY STAT 8:48 AM CDT URINALYSIS AND REFLEX TO MICROSCOPIC AND CULTURE STAT 08/02/2024 8:48 AM CDT EGFR STAT 08/02/2024 8:43 AM CDT DIFFERENTIAL AUTO STAT 08/02/2024 8:43 AM CDT LIPASE STAT 08/02/2024 8:43 AM CDT COMPREHENSIVE METABOLIC PANEL STAT 8:43 AM CDT CBC WITH AUTO DIFFERENTIAL STAT 08/02 8:43 AM CDT from Last 3 Months Results * eGFR (10/08/2024 7:25 PM CDT) eGFR >90 >=60 mL/min/1. 73 [...] was last reviewed 2021. Testing performed by: [address] [address] Blood 10/08/2024 7:25 PM CDT 10/08/2024 7:29 PM CDT us Lilliana LAWTON LAB BLOOD ORDERABLES Final Result NEEL [address] [facility] Department [place] [address] * (ABNORMAL) Differential, auto (10/08/2024 7:25 PM CDT) Neutrophil abs 5.02 1.50 - 6.50 K/cumm Comment:Testing performed by : [address] [address] Imm gran abs 0.04 0.00 - 0.10 K/cumm NEEL Comment:Testing performed by : [address] [address] Lymphocyte abs 3.13 0.80 - 3.30 K/cumm NEEL Comment:Testing performed by : [address] [address] Monocyte abs 1.11(H) 0.20 - 0.80 K/cumm NEEL Comment:Testing performed by : [address] [address] Eosinophil abs 0.10 0.00 - 0.50 K/cumm NEEL Comment:Testing performed by : [address] [address] Basophil abs 0.06 0.00 - 0.10 K/cumm NEEL Comment:Testing performed by : [address] [address] Neutrophil pct 53.1 % NEEL Comment: Interpretive Data Percent cell count reference ranges are not reported, since discordance with absolute values may lead to misinterpretation of CBC data. Current Interpretive Data was last revised on 2017. Testing performed by: [address] [address] Imm gran pct 0.4 % [facility] Comment: Interpretive Data Percent cell count reference ranges are not reported, since discordance with absolute values may lead to misinterpretation of CBC data. Current Interpretive Data was last revised on 2017. Testing performed by: [address] [address] Lymphocyte pct 33.1 % [facility] Comment: Interpretive Data Percent cell count reference ranges are not reported, since discordance with absolute values may lead to misinterpretation of CBC data. Current Interpretive Data was last revised on 2017. Testing performed by: [address] [address] Monocyte pct 11.7 % [facility] Comment: Interpretive Data Percent cell count reference ranges are not reported, since discordance with absolute values may lead to misinterpretation of CBC data. Current Interpretive Data was last revised on 2017. Testing performed by: [address] [address] Eosinophil pct 1.1 % [facility] Comment: Interpretive Data Percent cell count reference ranges are not reported, since discordance with absolute values may lead to misinterpretation of CBC data. Current Interpretive Data was last revised on 2017. Testing performed by: [address] [address] Basophil pct 0.6 % [facility] Comment: Interpretive Data Percent cell count reference ranges are not reported, since discordance with absolute values may lead to misinterpretation of CBC data. Current Interpretive Data was last revised on 2017. Testing performed by: [address] [address] Blood 10/08/2024 7:25 PM CDT 10/08/2024 7:29 PM CDT Lilliana LAWTON LAB BLOOD ORDERABLES Final Result NEEL SMITH [address] [facility] Department [place] [address] * (ABNORMAL) CBC with auto differential (10/08/2024 7:25 PM CDT) WBC 9.46 3.80 - 9.90 K/cumm Comment:Testing performed by : [address] [address] Hgb 15.0 13.0 - 17.5 g/dL NEEL Comment:Testing performed by : [address] [address] Hct 44.6 38.9 - 50.3 % NEEL Comment:Testing performed by : [address] [address] Plt 321 150 - 400 K/cumm NEEL Comment:Testing performed by : [address] [address] MPV 10.0 9.1 - 12.3 fL NEEL Comment:Testing performed by : [address] [address] RBC 5.38 4.30 - 5.80 M/cumm NEEL Comment:Testing performed by : [address] [address] MCV 82.9 81.3 - 96.4 fL NEEL Comment:Testing performed by : [address] [address] MCH 27.9 27.1 - 33.3 pg NEEL Comment:Testing performed by : [address] [address] MCHC 33.6 32.3 - 35.7 g/dL NEEL Comment:Testing performed by : [address] [address] RDW CV 15.5(H) 11.1 - 14.9 % NEEL Comment:Testing performed by : [address] [address] RDW SD 46.7 35.7 - 48.1 fL NEEL Comment:Testing performed by : [address] [address] NRBC abs 0.00 0.00 - 0.01 K/cumm NEEL Comment:Testing performed by : [address] [address] Blood Venous blood specimen / Unknown 10/08/2024 7:25 PM CDT 10/08/2024 7:29 PM CDT Lilliana LAWTON LAB BLOOD ORDERABLES Final Result Performing Organization Address City/[facility] Co de Phone Number [address] [place] [address] * Lipase (10/08/2024 7:25 PM CDT) [facility] Lipase 42 10 - 99 Units/L Comment:Testing performed by : [address] [address] Blood Venous blood specimen / Unknown 10/08/2024 7:25 PM CDT 10/08/2024 7:29 PM CDT Lilliana LAWTON LAB BLOOD ORDERABLES Final Result Performing Organization Address [facility] Co de Phone Number [address] [address] * Comprehensive metabolic panel (10/08/2024 7:25 PM CDT) [facility] Sodium 141 135 - 145 mmol/L Comment:Testing performed by : [address] [address] Potassium, pl 4.3 3.3 - 4.9 mmol/L NEEL SMITH Comment: Hemolyzed; Potassium value may be falsely elevated by as much as 1.0 mmol/L. Suggest redraw and reanalysis. Testing performed by: [address] [address] Chloride 105 97 - 110 mmol/L NEEL SMITH Comment:Testing performed by : [address] [address] CO2 22 22 - 32 mmol/L NEEL Comment:Testing performed by : [address] [address] Anion gap 14 2 - 15 mmol/L NEEL Comment:Testing performed by : [address], [place]., [address] BUN 7 6 - 25 mg/dL [facility] Comment:Testing performed by : [address], [place]., [address] Creatinine 1.02 0.80 - 1.30 mg/dL [facility] Comment:Testing performed by : [address], [place]., [address] Glucose 104 70 - 199 mg/dL [facility] Comment: Interpretive Data Fasting glucose >/= 126 [...] was last revised 2022. Testing performed by: [address] [address] Calcium 10.1 8.5 - 10.3 mg/dL [facility] Comment:Testing performed by : [address] [address] Bilirubin, total 0.3 0.1 - 1.2 mg/dL [facility] Comment:Testing performed by : [address] [address] Protein, pl 7.7 6.5 - 8.5 g/dL NEEL Comment:Testing performed by : [address] [address] Albumin 4.8 3.5 - 5.0 g/dL NEEL Comment:Testing performed by : [address] [address] Alk phos 88 40 - 130 Units/L NEEL SMITH Comment:Testing performed by : [facility], [address] [place] [address]., [address] ALT 24 7 - 55 Units/L NEEL SMITH Comment:Testing performed by : [address] [address] AST 25 10 - 50 Units/L NEEL SMITH Comment: Hemolyzed; result may be falsely elevated Testing performed by: [address] [address] Blood 10/08/2024 7:25 PM CDT 10/08/2024 7:29 PM CDT us Lilliana LAWTON LAB BLOOD ORDERABLES Final Result Performing Organization Address City/State/[facility] Co de Phone Number NEEL [address] [facility] Department [place] [address] * CTA Chest Abdomen Pelvis (10/07/2024 6:41 AM CDT) Anatomical Region Laterality Modality Body N/A Computed Tomogra phy 10/07/2024 6:55 AM CDT Narrative 10/07/2024 7:18 AM CDT EXAM DESCRIPTION: CTA CHEST ABDOMEN PELVIS REASON FOR STUDY: dissection of aorta 44-year-old male with a past medical history significant for chronic recurrent pancreatitis presents with chief complaint of severe epigastric abdominal pain for the past 2 days. Notes diminished appetite and little to no p.o. intake. Endorses exacerbation of pain after intake of solid foods earlier yesterday. Denies any bilious or bloody vomiting. No acute chest pain at this time. No palpitations. No fevers or chills. Hx of cholecystectomy, pancreatic stents TECHNIQUE: CTA scan of the chest, abdomen, and pelvis performed without and with intravenous and without oral contrast using helical scanning technique with dynamic intravenous contrast injection. Precontrast images of the chest were acquired. Arterial phase images of the chest, abdomen, and pelvis as well as portal venous phase images of the abdomen were also acquired. Reconstructed coronal and sagittal MPR images reviewed. All images stored on PACS. 3D MIP images rendered on scanning unit and reviewed at time of interpretation. Automated exposure control was used as a dose optimization technique for this examination. CONTRAST TYPE/DOSE: 100mL of IOVERSOL 350 MG IODINE/ML INTRAVENOUS SYRINGE injected via intravenous COMPARISON: Comparison is made to multiple previous studies, the most recent chest CT dated May 11, [address] of the abdomen and pelvis dated October 03, 2024. FINDINGS: CHEST NECK BASE: Unremarkable. HARDWARE/LINES/TUBES: None. LYMPH NODES: No axillary, mediastinal or hilar lymphadenopathy is seen by CT size criteria. MEDIASTINUM/KATELYN: There is no mediastinal mass or hematoma. There is mild dilation of the aortic root measuring up to 4.3 cm in diameter. The sino-tubular junction is normal in caliber measuring 3.3 cm. The ascending aorta is normal in caliber measuring 3.5 cm. The aortic arch and descending aorta are normal in caliber. There is no evidence of aneurysm, dissection, penetrating atherosclerotic ulcer, rupture or stenosis. There is no significant coronary artery calcification. Heart size is normal. There is no significant pericardial effusion. PLEURA: No effusion. No pneumothorax. LUNGS: The lungs are clear. The central airways are normal. CHEST WALL/BREAST: Unremarkable. MUSCULOSKELETAL: No acute abnormality. OTHER: No other significant abnormality. ABDOMEN AND PELVIS LIVER: The liver is normal in attenuation without focal lesion. GALLBLADDER: Surgically absent. BILE DUCTS: No intrahepatic or extrahepatic ductal dilatation. PANCREAS: Normal. SPLEEN: Normal size. No focal lesions. ADRENALS: Normal. KIDNEYS/URINARY TRACT: No identified significant cystic or solid masses. No visualized stones. No hydronephrosis or hydroureter. Urinary bladder is unremarkable. VASCULATURE: There is mild atherosclerosis of the aorta. The aorta is normal in caliber without evidence of aneurysm, dissection, penetrating atherosclerotic ulcer or rupture. There is minimal stenosis of the origin of the celiac axis. The celiac axis, SMA and JOSE ALEJANDRO all appear patent. There is a single patent left renal artery supplying the left kidney. There are 2 patent renal artery supplying the right kidney. The pelvic vasculature is patent. GI: The stomach appears normal. There is no significant small bowel dilation or visible thickening. No gross colonic abnormalities identified. The appendix is normal. PERITONEUM/MESENTERY: No ascites or free air. LYMPH NODES: There are no enlarged lymph nodes seen by CT size criteria. REPRODUCTIVE: The prostate and seminal vesicles are unremarkable. MUSCULOSKELETAL: No significant abnormality. OTHER: No other abnormality. IMPRESSION: No evidence of acute aortic syndrome. Mild dilation of the aortic root measuring up to 4.3 cm in diameter. Consider annual follow-up surveillance with transthoracic echocardiogram or MRA of the chest. Mild atherosclerosis of the aorta. Minimal stenosis of the origin of the celiac axis. Status post cholecystectomy. It should be noted that this patient has had 93 CTs of the chest, abdomen and pelvis, representing a significant radiation dose. Going forward consideration should be given to choosing imaging modalities that do not utilized ionizing radiation. THIS IS AN ELECTRONICALLY VERIFIED FINAL REPORT 10/07/2024 7:18 AM - Electronically signed by Melissa Phoenix M.D. SN T: Report ID: [id number] Reading Location: [id number] Procedure Note Melissa Phoenix MD - 10/07/2024 EXAM DESCRIPTION: CTA CHEST ABDOMEN PELVIS REASON FOR STUDY: dissection of aorta 44-year-old male with a past medical history significant for chronicrecurrent pancreatitis presents with chief complaint of severe epigastric abdominalpain for the past 2 days. Notes diminished appetite and little to no p.o.intake. Endorses exacerbation of pain after intake of solid foods earlieryesterday. Denies any bilious or bloody vomiting. No acute chest pain at this time.No palpitations. No fevers or chills. Hx of cholecystectomy, pancreatic stents TECHNIQUE: CTA scan of the chest, abdomen, and pelvis performed withoutand with intravenous and without oral contrast using helical scanningtechnique with dynamic intravenous contrast injection. Precontrast images of thechest were acquired. Arterial phase images of the chest, abdomen, and pelvis aswell as portal venous phase images of the abdomen were also acquired.Reconstructed coronal and sagittal MPR images reviewed. All images stored on PACS. 3DMIP images rendered on scanning unit and reviewed at time of interpretation. Automated exposure control was used as a dose optimization technique forthis examination. CONTRAST TYPE/DOSE: 100mL of IOVERSOL 350 MG IODINE/ML INTRAVENOUS SYRINGE injected via intravenous COMPARISON: Comparison is made to multiple previous studies, the mostrecent chest CT dated May 11, [address] of the abdomen andpelvis dated October 03, 2024. FINDINGS: CHEST NECK BASE: Unremarkable. HARDWARE/LINES/TUBES: None. LYMPH NODES: No axillary, mediastinal or hilar lymphadenopathy is seen byCT size criteria. MEDIASTINUM/KATELYN: There is no mediastinal mass or hematoma. There ismild dilation of the aortic root measuring up to 4.3 cm in diameter. The sino-tubular junction is normal in caliber measuring 3.3 cm. Theascending aorta is normal in caliber measuring 3.5 cm. The aortic arch anddescending aorta are normal in caliber. There is no evidence of aneurysm,dissection, penetrating atherosclerotic ulcer, rupture or stenosis. There is no significant coronary artery calcification. Heart size is normal. Thereis no significant pericardial effusion. PLEURA: No effusion. No pneumothorax. LUNGS: The lungs are clear. The central airways are normal. CHEST WALL/BREAST: Unremarkable. MUSCULOSKELETAL: No acute abnormality. OTHER: No other significant abnormality. ABDOMEN AND PELVIS LIVER: The liver is normal in attenuation without focal lesion. GALLBLADDER: Surgically absent. BILE DUCTS: No intrahepatic or extrahepatic ductal dilatation. PANCREAS: Normal. SPLEEN: Normal size. No focal lesions. ADRENALS: Normal. KIDNEYS/URINARY TRACT: No identified significant cystic or solid masses.No visualized stones. No hydronephrosis or hydroureter. Urinary bladder is unremarkable. VASCULATURE: There is mild atherosclerosis of the aorta. The aorta is normal in caliber without evidence of aneurysm, dissection, penetrating atherosclerotic ulcer or rupture. There is minimal stenosis of the originof the celiac axis. The celiac axis, SMA and JOSE ALEJANDRO all appear patent. Thereis a single patent left renal artery supplying the left kidney. There are 2patent renal artery supplying the right kidney. The pelvic vasculature ispatent. GI: The stomach appears normal. There is no significant small bowel dilation or visible thickening. No gross colonic abnormalitiesidentified. The appendix is normal. PERITONEUM/MESENTERY: No ascites or free air. LYMPH NODES: There are no enlarged lymph nodes seen by CT size criteria. REPRODUCTIVE: The prostate and seminal vesicles are unremarkable. MUSCULOSKELETAL: No significant abnormality. OTHER: No other abnormality. IMPRESSION: No evidence of acute aortic syndrome. Mild dilation of the aortic root measuring up to 4.3 cm in diameter. Consider annual follow-up surveillance with transthoracic echocardiogramor MRA of the chest. Mild atherosclerosis of the aorta. Minimal stenosis of the origin of the celiac axis. Status post cholecystectomy. It should be noted that this patient has had 93 CTs of the chest, abdomenand pelvis, representing a significant radiation dose. Going forward consideration should be given to choosing imaging modalities that do not utilized ionizing radiation. THIS IS AN ELECTRONICALLY VERIFIED FINAL REPORT 10/07/2024 7:18 AM - Electronically signed by Melissa Phoenix M.D. SN T: Report ID: [id number] Reading Location: [id number] Jose Francisco Harper DO IMG CT PROCEDURES Final Res ult * XR Chest 1 Vw Portable (10/07/2024 6:31 AM CDT) Anatomical Region Laterality Modality Body, Chest N/A Computed Radiogr aphy 10/07/2024 6:36 AM CDT Narrative 10/07/2024 6:37 AM CDT EXAM DESCRIPTION: XR CHEST 1 VIEW REASON FOR STUDY: Abd pain, unspecified C/o upper L quad abd pain. Pt states this started about an hour ago [employer]. Pt states that he was recently hospitalized for elevated lipase which is what causes this pain. Pt is tearful and moaning due to pain. TECHNIQUE: Single radiographic view of the chest. COMPARISON: Chest x-ray of October 04, 2023. FINDINGS: LUNGS/PLEURA: Lungs are mildly hypoventilatory yet clear. HEART/MEDIASTINUM: Cardiac silhouette is normal. Remaining mediastinal silhouettes are unremarkable. HARDWARE/LINES/TUBES: None. BONES: No acute findings. IMPRESSION: No acute cardiopulmonary abnormality. THIS IS AN ELECTRONICALLY VERIFIED FINAL REPORT 10/07/2024 6:37 AM - Electronically signed by Melissa Phoenix M.D. SN T: Report ID: [id number] Reading Location: [id number] Procedure Note Melissa Phoenix MD - 10/07/2024 EXAM DESCRIPTION: XR CHEST 1 VIEW REASON FOR STUDY: Abd pain, unspecified C/o upper L quad abd pain. Pt states this started about an hour ago [employer].Pt states that he was recently hospitalized for elevated lipase which iswhat causes this pain. Pt is tearful and moaning due to pain. TECHNIQUE: Single radiographic view of the chest. COMPARISON: Chest x-ray of October 04, 2023. FINDINGS: LUNGS/PLEURA: Lungs are mildly hypoventilatory yet clear. HEART/MEDIASTINUM: Cardiac silhouette is normal. Remaining mediastinal silhouettes are unremarkable. HARDWARE/LINES/TUBES: None. BONES: No acute findings. IMPRESSION: No acute cardiopulmonary abnormality. THIS IS AN ELECTRONICALLY VERIFIED FINAL REPORT 10/07/2024 6:37 AM - Electronically signed by Melissa Phoenix M.D. SN T: Report ID: [id number] Reading Location: [place] [address] Jose Francisco Harper DO IMG XR PROCEDURES Final Res ult * Troponin T high-sensitivity 2-hour (10/07/2024 6:05 AM CDT) Trop T hs <6 <=22 ng/L Comment: Interpretive Data For further hscTnT resources including the diagnostic algorithm and an aid in interpretation, copy and paste this link: https://nrl.testcatalog.org/show/hsTrop Current Interpretive Data last revised 2020. Trop T hs delta 0 ng/L NEEL SMITH Trop T hs interp Insignificant NEEL SMITH Blood 10/07/2024 6:05 AM CDT 10/07/2024 6:07 AM CDT Jose Francisco Harper DO LAB BLOOD ORDERABLES Final Result NEEL [address] [facility] Department [place] [address] * ECG 12 lead (10/07/2024 4:11 AM CDT) Ventricular Rate EKG/Min 65 BPM [facility] Atrial Rate 65 BPM [facility] AR-Interval (MSEC) 108 ms [facility] QRS-Interval (MSEC) 102 ms [facility] QT-Interval (MSEC) 388 ms [facility] QTc 403 ms [facility] P Jackson 30 degrees [facility] R Jackson 56 degrees [facility] T Jackson 58 degrees [facility] Diagnosis Sinus rhythm with short AR Otherwise normal ECG When compared with ECG of 27-JUN-2024 09:54, No significant change was found Confirmed by ASHLIE BERMEO M.D. ([id number]) on 10/07/2024 11:47:08 PM [facility] 10/07/2024 4:11 AM CDT 10/07/2024 11:47 PM CDT us Jose Francisco Harper DO ECG ORDERABLES Final Resul t [facility] * Urinalysis reflex to microscopic and culture Urine (10/07/2024 4:06 AM CDT) Color, ur Yellow Yellow Clarity, ur Clear Clear NEEL Specific gravity, ur 1.013 1.003 - 1.030 NEEL pH, urine 5.5 [facility] Comment: Interpretive Data U rine pH is affected by diet, medications, systemic acid-base disturbances, and renal tubular function. pH may affect urinary stone formation. For example, urine pH below 6.0 may help reduce the tendency for calcium phosphate stones and pH greater than 6.0 may reduce the tendency for uric acid stone formation. Source: [facility] Current Interpretive Data was last revised on 2017 Protein, ur ql Negative Negative [facility] Glucose, ur ql Negative Negative [facility] Ketones, ur Negative Negative [facility] Bilirubin, ur Negative Negative [facility] Blood, ur Negative Negative [facility] Urobilinogen, ur <2.0 <2.0 mg/dL [facility] Nitrite, ur Negative Negative [facility] Leukocyte esterase, ur Negative Negative [facility] UA reflex comment Reflex conditions for microscopic UA and culture not met. NEEL Urine 10/07/2024 4:06 AM CDT 10/07/2024 4:10 AM CDT us Jose Francisco Harper DO LAB MICROBIOLOGY - GENERAL ORDERABLES Final Result NEEL [address] [place] [address] * Troponin T high-sensitivity series (baseline, 2hr, 4hr, 6hr) (10/07/2024 4:00 AM CDT) [facility] Trop T hs <6 <=22 ng/L Comment: Interpretive Data For further hscTnT resources including the diagnostic algorithm and an aid in interpretation, copy and paste this link: https://nrl.testcatalog.org/show/hsTrop Current Interpretive Data last revised 2020. Blood 10/07/2024 4:00 AM CDT 10/07/2024 4:02 AM CDT Jose Francisco Harper DO LAB BLOOD ORDERABLES Final Result NEEL [address] [address] * eGFR (10/07/2024 4:00 AM CDT) [facility] eGFR 87 >=60 mL/min/1. 73 m2 Comment: Interpretive Data [...] interpretive data was last reviewed 2021. Blood 10/07/2024 4:00 AM CDT 10/07/2024 4:02 AM CDT Jose Francisco Harper DO LAB BLOOD ORDERABLES Final Result NEEL [address] [facility] Department [place] [address] * (ABNORMAL) Differential, auto (10/07/2024 4:00 AM CDT) Neutrophil abs 5.81 1.50 - 6.50 K/cumm Imm gran abs 0.04 0.00 - 0.10 K/cumm [facility] Lymphocyte abs 3.73(H) 0.80 - 3.30 K/cumm [facility] Monocyte abs 1.14(H) 0.20 - 0.80 K/cumm [facility] Eosinophil abs 0.27 0.00 - 0.50 K/cumm [facility] Basophil abs 0.06 0.00 - 0.10 K/cumm [facility] Neutrophil pct 52.6 % [facility] Comment: Interpretive Data Percent cell count reference ranges are not reported, since discordance with absolute values may lead to misinterpretation of CBC data. Current Interpretive Data was last revised on 2017. Imm gran pct 0.4 % [facility] Comment: Interpretive Data Percent cell count reference ranges are not reported, since discordance with absolute values may lead to misinterpretation of CBC data. Current Interpretive Data was last revised on 2017. Lymphocyte pct 33.8 % [facility] Comment: Interpretive Data Percent cell count reference ranges are not reported, since discordance with absolute values may lead to misinterpretation of CBC data. Current Interpretive Data was last revised on 2017. Monocyte pct 10.3 % [facility] Comment: Interpretive Data Percent cell count reference ranges are not reported, since discordance with absolute values may lead to misinterpretation of CBC data. Current Interpretive Data was last revised on 2017. Eosinophil pct 2.4 % [facility] Comment: Interpretive Data Percent cell count reference ranges are not reported, since discordance with absolute values may lead to misinterpretation of CBC data. Current Interpretive Data was last revised on 2017. Basophil pct 0.5 % [facility] Comment: Interpretive Data Percent cell count reference ranges are not reported, since discordance with absolute values may lead to misinterpretation of CBC data. Current Interpretive Data was last revised on 2017. Blood 10/07/2024 4:00 AM CDT 10/07/2024 4:02 AM CDT [facility] BLOOD ORDERAB[facility] Final Result Performing Organization Address City/[facility]/ZIP Co de Phone Number [facility] [address] [address] * (ABNORMAL) CBC with auto differential (10/07/2024 4:00 AM CDT) WBC 11.05(H) 3.80 - 9.90 K/cumm Hgb 14.9 13.0 - 17.5 g/dL [facility] Hct 44.7 38.9 - 50.3 % [facility] Plt 281 150 - 400 K/cumm [facility] MPV 9.8 9.1 - 12.3 fL [facility] RBC 5.28 4.30 - 5.80 M/cumm [facility] MCV 84.7 81.3 - 96.4 fL [facility] MCH 28.2 27.1 - 33.3 pg [facility] MCHC 33.3 32.3 - 35.7 g/dL [facility] RDW CV 15.3(H) 11.1 - 14.9 % [facility] RDW SD 46.6 35.7 - 48.1 fL [facility] NRBC abs 0.00 0.00 - 0.01 K/cumm [facility] Blood Venous blood specimen / Unknown 10/07/2024 4:00 AM CDT 10/07/2024 4:02 AM CDT Jose Francisco Harper LAB BLOOD ORDERABLES Final Result Performing Organization Address City/[facility]/ZIP Co de Phone Number NEEL [address] [place] [address] * (ABNORMAL) Lipase (10/07/2024 4:00 AM CDT) Lipase 104(H) 10 - 99 Units/L Blood Venous blood specimen / Unknown 10/07/2024 4:00 AM CDT 10/07/2024 4:02 AM CDT Jose Francisco Harper DO LAB BLOOD ORDERABLES Final Result [facility] [address] [facility] Department [place] [address] * Comprehensive metabolic panel (10/07/2024 4:00 AM CDT) [facility] Sodium 142 135 - 145 mmol/L Potassium, pl 4.1 3.3 - 4.9 mmol/L [facility] Chloride 107 97 - 110 mmol/L [facility] CO2 23 22 - 32 mmol/L [facility] Anion gap 12 2 - 15 mmol/L [facility] BUN 9 6 - 25 mg/dL [facility] Creatinine 1.08 0.80 - 1.30 mg/dL [facility] Glucose 90 70 - 199 mg/dL [facility] Comment: Interpretive Data Fasting glucose [...] interpretive data was last revised 2022. Calcium 9.4 8.5 - 10.3 mg/dL [facility] Bilirubin, total 0.2 0.1 - 1.2 mg/dL [facility] Protein, pl 7.1 6.5 - 8.5 g/dL [facility] Albumin 4.4 3.5 - 5.0 g/dL [facility] Alk phos 81 40 - 130 Units/L [facility] ALT 23 7 - 55 Units/L [facility] AST 24 10 - 50 Units/L [facility] Blood 10/07/2024 4:00 AM CDT 10/07/2024 4:02 AM CDT Jose Francisco Harper DO LAB BLOOD ORDERABLES Final Result Performing Organization Address [facility] de Phone Number NEEL [address] [address] * eGFR (10/03/2024 7:08 AM CDT) Pathologist [facility] eGFR >90 >=60 mL/min/1. 73 m2 Comment: [...] interpretive data was last reviewed 2021. Blood 10/03/2024 7:08 AM CDT 10/03/2024 7:22 AM CDT us Fred Toth MD LAB BLOOD ORDERABLES Final Res ult Performing Organization Address [facility] Co de Phone Number NEEL [address] [place] [address] * (ABNORMAL) CBC without differential (10/03/2024 7:08 AM CDT) [facility] WBC 13.42(H) 3.80 - 9.90 K/cumm Hgb 12.4(L) 13.0 - 17.5 g/dL [facility] Hct 37.9(L) 38.9 - 50.3 % [facility] [facility] Plt 226 150 - 400 K/cumm [facility] MPV 10.0 9.1 - 12.3 fL [facility] RBC 4.43 4.30 - 5.80 M/cumm [facility] MCV 85.6 81.3 - 96.4 fL [facility] MCH 28.0 27.1 - 33.3 pg [facility] MCHC 32.7 32.3 - 35.7 g/dL [facility] RDW CV 15.4(H) 11.1 - 14.9 % [facility] RDW SD 48.1 35.7 - 48.1 fL [facility] NRBC abs 0.00 0.00 - 0.01 K/cumm [facility] Blood 10/03/2024 7:08 AM CDT 10/03/2024 7:22 AM CDT us Fred Toth MD LAB BLOOD ORDERABLES Final Res ult Performing Organization Address [facility] de Phone Number [address] [place] [address] * Lipase (10/03/2024 7:08 AM CDT) Pathologist [facility] Lipase 55 10 - 99 Units/L Blood 10/03/2024 7:08 AM CDT 10/03/2024 7:22 AM CDT us Fred Toth MD LAB BLOOD ORDERABLES Final Res ult Performing Organization Address [facility] de Phone Number [address] [place] [address] * Basic metabolic panel (10/03/2024 7:08 AM CDT) Pathologist [facility] Sodium 141 135 - 145 mmol/L Potassium, pl 4.4 3.3 - 4.9 mmol/L [facility] Chloride 107 97 - 110 mmol/L [facility] CO2 24 22 - 32 mmol/L [facility] Anion gap 10 2 - 15 mmol/L [facility] BUN 9 6 - 25 mg/dL [facility] Creatinine 0.96 0.80 - 1.30 mg/dL [facility] Glucose 100 70 - 199 mg/dL NEEL Comment: Interpretive [...] interpretive data was last revised 2022. Calcium 8.9 8.5 - 10.3 mg/dL NEEL Blood 10/03/2024 7:08 AM CDT 10/03/2024 7:22 AM CDT us Fred Toth MD LAB BLOOD ORDERABLES Final Res ult NEEL [address] [facility] Department [place] [address] * (ABNORMAL) Lipid panel (10/03/2024 1:54 AM CDT) Pathologist [facility] Cholesterol 114 30 - 199 mg/dL Comment: Interpretive Data Ages < or = 19 years Acceptable: <170 mg/dL Borderline high: 170-199 mg/dL High: >or= 200 mg/dL Ages > or = 20 years Desirable: <200 mg/dL Borderline high: 200-239 mg/dL High: >or= 240 mg/dL Literature References: 1. Expert Panel on Integrated Guidelines for Cardiovascular Health and Risk Reduction in Children and Adolescents. Pediatrics 2011;128:S213 2. NCEP Expert Panel. Circulation 2004;110:227 Current Interpretive Data was last revised on 2017. Testing performed by: [facility], [address] [place] [address]., [address] Triglycerides 115 <=149 mg/dL NEEL Comment: Interpretive Data Ages < or = 9 years Acceptable: <75 mg/dL Borderline high: 75-99 mg/dL High: >or= 100 mg/dL Ages 10 to 20 years Acceptable: <90 mg/dL Borderline high: 90-129 mg/dL High: >or= 130 mg/dL Ages > or = 20 years Desirable: <150 mg/dL Borderline high: 150-199 mg/dL High: 200-499 mg/dL Very high: >or= 499 mg/dL Literature References: 1. Expert Panel on Integrated Guidelines for Cardiovascular Health and Risk Reduction in Children and Adolescents. Pediatrics 2011;128:S213 2. NCEP Expert Panel. Circulation 2004;110:227 Current Interpretive Data was last revised on 2017. Testing performed by: [address] [address] HDL 32(L) >=40 mg/dL NEEL Comment: Interpretive Data Ages < or = 19 years Acceptable: >45 mg/dL Borderline low: 40-45 mg/dL Low: <40 mg/dL Ages > or = 20 years Desirable: >or= 60 mg/dL Low: <40 mg/dL Literature References: 1. Expert Panel on Integrated Guidelines for Cardiovascular Health and Risk Reduction in Children and Adolescents. Pediatrics 2011;128:S213 2. NCEP Expert Panel. Circulation 2004;110:227 Current Interpretive Data was last revised on 2017. Testing performed by: [address] [address] LDL, calculated 61 <=129 mg/dL NEEL Comment: Interpretive Data Ages < or = 19 years Acceptable: <110 mg/dL Borderline high: 110-129 mg/dL High: >or= 130 mg/dL Ages > or = 20 years Optimal: <100 mg/dL Near optimal: 100-129 mg/dL Borderline high: 130-159 mg/dL High: >160 mg/dL Calculated using the Tremaine LDL-C estimating equation. This equation was implemented on 2023. Prior to this date LDL-C was estimated using the Friedewald equation. Literature References: 1. Expert Panel on Integrated Guidelines for Cardiovascular Health and Risk Reduction in Children and Adolescents. Pediatrics 2011;128:S213 2. NCEP Expert Panel. Circulation 2004;110:227 3. Tremaine Arias al. ALPA Cardiol. 2019September 08;5(5):540-548. doi: 10.1001/jamacardio.2020.0013 Current Interpretive Data was last revised on 2023. Testing performed by: [address] [address] Non-HDL Cholesterol 82 mg/dL NEEL SMITH Comment: Interpretive Data Ages < or = 19 years Acceptable: <120 mg/dL Borderline high: 120-144 mg/dL High: >145 mg/dL Ages > or = 20 years When triglycerides are >200 mg/dL, Non-HDL cholesterol is a secondary target of therapy with treatment goals that are 30 mg/dL greater than the LDL cholesterol target. Literature References: 1. Expert Panel on Integrated Guidelines for Cardiovascular Health and Risk Reduction in Children and Adolescents. Pediatrics 2011;128:S213 2. NCEP Expert Panel. Circulation 2004;110:227 Current Interpretive Data was last revised on 2017. Testing performed by: [address] [address] Chol/HDL ratio 4 NEEL Comment:Testing performed by : [address] [address] Blood 10/03/2024 1:54 AM CDT 10/03/2024 2:00 AM CDT us Fred Toth MD LAB BLOOD ORDERABLES Final Res ult Performing Organization Address City/State/[facility] Co de Phone Number NEEL [address] [facility] Department [place] [address] * CT Abdomen Pelvis W Contrast (10/03/2024 1:15 AM CDT) Anatomical Region Laterality Modality Body N/A Computed Tomogra phy 10/03/2024 1:21 AM CDT Narrative 10/03/2024 1:25 AM CDT EXAM DESCRIPTION: CT ABDOMEN PELVIS W CONTRAST REASON FOR STUDY: Pancreatitis, acute, severe presenting to the ED c/o abdominal pain diaphoresis nausea and vomiting. Patient has had similar symptoms on and off for years. He states he was at work today and symptoms started at the end of his shift. Complaining of sharp pain. Patient's states that narcotics are normally the only thing that helps his pain. Patient was in the emergency department a few days ago with similar symptoms and workup was unremarkable. TECHNIQUE: CT scan of the abdomen and pelvis performed with intravenous and without oral contrast using helical scanning technique with dynamic intravenous contrast injection. Reconstructed coronal and sagittal MPR images reviewed. All images stored on PACS. Automated exposure control was used as a dose optimization technique for this examination. CONTRAST TYPE/DOSE: 100mL of IOVERSOL 350 MG IODINE/ML INTRAVENOUS SYRINGE injected via intravenous COMPARISON: 09/30/2024 FINDINGS: LOWER CHEST: Lung bases are clear. Heart size normal. No effusion. LIVER/BILIARY: Liver unremarkable. Biliary tree normal in caliber. GALLBLADDER: Absent. SPLEEN: Normal. PANCREAS: Normal. ADRENAL GLANDS: Normal. KIDNEYS/URINARY TRACT: Unremarkable. GI: Stomach and small bowel appear normal. Liquid contents scattered throughout the colon. No wall thickening or inflammation is seen. Normal appendix. OTHER ABDOMINAL/PELVIS: Major vascular structures are grossly patent normal in caliber. No enlarged lymph node or free fluid. MSK: Normal. BODY WALL: Unremarkable. IMPRESSION: 1. No peripancreatic inflammation or other acute upper abdominal abnormality identified. 2. Liquid contents in the mid and distal colon are evidence for mild diarrheal state. No wall thickening/inflammation. THIS IS AN ELECTRONICALLY VERIFIED FINAL REPORT 10/03/2024 1:25 AM - Electronically signed by Aryan Jovel M.D. AR: GIOVANNA Report ID: [id number] Reading Location: [place] [address] Procedure Note Aryan Jovel MD - 10/03/2024 EXAM DESCRIPTION: CT ABDOMEN PELVIS W CONTRAST REASON FOR STUDY: Pancreatitis, acute, severe presenting to the ED c/o abdominal pain diaphoresis nausea and vomiting. Patient has had similar symptoms on and off for years. He states he wasat work today and symptoms started at the end of his shift. Complaining ofsharp pain. Patient's states that narcotics are normally the only thing that helps his pain. Patient was in the emergency department a few days agowith similar symptoms and workup was unremarkable. TECHNIQUE: CT scan of the abdomen and pelvis performed with intravenousand without oral contrast using helical scanning technique with dynamic intravenous contrast injection. Reconstructed coronal and sagittal MPRimages reviewed. All images stored on PACS. Automated exposure control was usedas a dose optimization technique for this examination. CONTRAST TYPE/DOSE: 100mL of IOVERSOL 350 MG IODINE/ML INTRAVENOUSSYRINGE injected via intravenous COMPARISON: 09/30/2024 FINDINGS: LOWER CHEST: Lung bases are clear. Heart size normal. No effusion. LIVER/BILIARY: Liver unremarkable. Biliary tree normal in caliber. GALLBLADDER: Absent. SPLEEN: Normal. PANCREAS: Normal. ADRENAL GLANDS: Normal. KIDNEYS/URINARY TRACT: Unremarkable. GI: Stomach and small bowel appear normal. Liquid contents scattered throughout the colon. No wall thickening or inflammation is seen. Normal appendix. OTHER ABDOMINAL/PELVIS: Major vascular structures are grossly patentnormal in caliber. No enlarged lymph node or free fluid. MSK: Normal. BODY WALL: Unremarkable. IMPRESSION: 1. No peripancreatic inflammation or other acute upper abdominalabnormality identified. 2. Liquid contents in the mid and distal colon are evidence for mild diarrheal state. No wall thickening/inflammation. THIS IS AN ELECTRONICALLY VERIFIED FINAL REPORT 10/03/2024 1:25 AM - Electronically signed by Aryan Jovel M.D. AR: GIOVANNA Report ID: [id number] Reading Location: [place] [address] Fred Toth MD [facility] PROCEDURES Final Result * (ABNORMAL) Drugs of Abuse Screen, Urine with Reflex Confirmation (10/03/2024 12:51 AM CDT) Pathologist [facility] Amphetamine, ur Not Detected CutOff 500ng/mL Comment: Interpretive Data - Amphetamines: Samples containing greater than 500 ng/mL d-methamphetamine or other cross-reacting amphetamine compounds are reported as positive. Amphetamine immunoassays are subject to significant false positive rates due to cross-reactivity of non-amphetamine drugs. Confirmatory testing required for definitive results. Current Interpretive Data was last reviewed 2022. Testing performed by: [facility], [address] [place] [address]., [address] Barbiturates, ur Not Detected CutOff 200ng/mL NEEL SMITH Comment: Interpretive Data - Barbiturates: Samples containing greater than 200 ng/mL secobarbital or other cross-reacting barbiturate compounds are reported as positive. False positive and false negative results are possible. Confirmatory testing required for definitive results. Current Interpretive Data was last reviewed 2022. Testing performed by: [address] [address] Benzodiazepines, ur Not Detected CutOff 100ng/mL [facility] Comment: Interpretive Data - Benzodiazepines: Samples containing greater than 100 ng/mL nordiazepam or other cross-reacting compounds are reported as positive. False positive and false negative results are possible. Confirmatory testing required for definitive results. Current Interpretive Data was last reviewed 2022. Testing performed by: [facility], [address] [place] [address]., [address] Cannabinoids, ur Screen Positive, presumptive (A) CutOff 50 ng/mL [facility] Comment: Interpretive Data - Cannabinoids: Samples containing greater than 50 ng/mL delta-9 THC -COOH or other cross- reacting compounds are reported as positive. False positive and false negative results are possible. Confirmatory testing required for definitive results. Current Interpretive Data was last reviewed 2022. Testing performed by: [facility], [address] [place] [address]., [address] Cocaine, ur Not Detected CutOff 150ng/mL [facility] Comment: Interpretive Data - Cocaine: Samples containing greater than 150 ng/mL benzoylecgonine or other cross- reacting compounds are reported as positive. False positive and false negative results are possible. Confirmatory testing required for definitive results. Current Interpretive Data was last reviewed 2022. Testing performed by: [address] [address] Fentanyl, Ur Not Detected CutOff 5 ng/mL [facility] Comment: Interpretive Data - Fentanyl: Samples containing greater than 1 ng/mL fentanyl or other cross-reacting fentanyl compounds are reported as positive. False positive and false negative results are possible. Confirmatory testing required for definitive results. Current Interpretive Data was last reviewed 2022. Testing performed by: [address] [address] Methadone, ur Not Detected CutOff 300ng/mL [facility] Comment: Interpretive Data - Methadone: Samples containing greater than 300 ng/mL d,l-methadone or other cross-reacting compounds are reported as positive. False positive and false negative results are possible. Confirmatory testing required for definitive results. Current Interpretive Data was last reviewed 2022. Testing performed by: [address] [address] Opiates, ur Not Detected CutOff 300ng/mL NEEL Comment: Interpretive Data - Opiates: Samples containing greater than 300 ng/mL morphine or other cross-reacting compounds are reported as positive. False positive and false negative results are possible. Confirmatory testing required for definitive results. Current Interpretive Data was last reviewed 2022. Testing performed by: [address] [address] Oxycodone, ur Not Detected CutOff 100ng/mL NEEL Comment: Interpretive Data - Oxycodone: Samples containing greater than 100 ng/mL oxycodone or other cross-reacting compounds are reported as positive. False positive and false negative results are possible. Confirmatory testing required for definitive results. Current Interpretive Data was last reviewed 2022. Testing performed by: [address] [address] Phencyclidine, ur Not Detected CutOff 25 ng/mL NEEL Comment: Interpretive Data - Phencyclidine: Samples containing greater than 25 ng/mL phencyclidine or other cross-reacting compounds are reported as positive. False positive and false negative results are possible. Confirmatory testing required for definitive results. Current Interpretive Data was last reviewed 2022. Testing performed by: [address] [address] Urine Creatinine 102 mg/dL NEEL Comment: Interpretive Data Urine Creatinine: < 10 mg/dL is extremely dilute = or > 10 but < 20 mg/dL is dilute = or > 20 mg/dL is normal Current Interpretive Data was last revised on 2017. Testing performed by: [address] [address] Urine 10/03/2024 12:5 1 AM CDT 10/03/2024 12:53 AM CDT Narrative NEEL - 10/03/2024 1:16 AM CDT Drug of Abuse screening is performed by immunoassay for medical purposes only. This is not to be used for Pain Management purposes. If Detected, confirmation testing will be performed for Amphetamines, Cocaine, Fentanyl, Methadone, Opiates, Oxycodone or Phencyclidine. us Fred Toth MD LAB URINE ORDERABLES Final Res ult NEEL [address] [facility] Department [place] [address] * Urinalysis reflex to microscopic and culture Urine (10/02/2024 10:09 PM CDT) Color, ur Yellow Yellow Comment:Testing performed by : [address] [address] Clarity, ur Clear Clear NEEL Comment:Testing performed by : [address] [address] Specific gravity, ur 1.011 1.003 - 1.030 NEEL Comment:Testing performed by : [address] [address] pH, urine 6.0 NEEL Comment: Interpretive Data U rine pH is affected by diet, medications, systemic acid-base disturbances, and renal tubular function. pH may affect urinary stone formation. For example, urine pH below 6.0 may help reduce the tendency for calcium phosphate stones and pH greater than 6.0 may reduce the tendency for uric acid stone formation. Source: [facility] [employer] Current Interpretive Data was last revised on 2017 Testing performed by: [address] [address] Protein, ur ql Negative Negative NEEL Comment:Testing performed by : [address] [address] Glucose, ur ql Negative Negative NEEL Comment:Testing performed by : [address] [address] Ketones, ur Negative Negative NEEL Comment:Testing performed by : [address] [address] Bilirubin, ur Negative Negative NEEL Comment:Testing performed by : [address] [address] Blood, ur Negative Negative NEEL Comment:Testing performed by : [facility], [address] [place] [address]., [address] Urobilinogen, ur <2.0 <2.0 mg/dL NEEL Comment:Testing performed by : [facility], [address] [place] [address], [place]., [address] Nitrite, ur Negative Negative NEEL Comment:Testing performed by : [address] [address] Leukocyte esterase, ur Negative Negative NEEL Comment:Testing performed by : [address], [place]., [address] UA reflex comment Reflex conditions for microscopic UA and culture not met. NEEL Comment:Testing performed by : [address], [place]., [address] Urine 10/02/2024 10:0 9 PM CDT 10/02/2024 10:11 PM CDT María Elena Calvo MD LAB MICROBIOLOGY - GENERA L ORDERABLES Final Result NEEL 0[address] [facility] Department [place] [address] * eGFR (10/02/2024 9:51 PM CDT) eGFR 87 >=60 mL/min/1. 73 m2 Comment: Interpretive Data [...] was last reviewed 2021. Testing performed by: [address] [address] Blood 10/02/2024 9:51 PM CDT 10/02/2024 9:57 PM CDT us María Elena Calvo MD LAB BLOOD ORDERABLES Renee antunez Result [facility] [address] [facility] Department [place] [address] * (ABNORMAL) Differential, auto (10/02/2024 9:51 PM CDT) Neutrophil abs 12.91(H) 1.50 - 6.50 K/cumm Comment:Testing performed by : [address] [address] Imm gran abs 0.10 0.00 - 0.10 K/cumm NEEL Comment:Testing performed by : [address] [address] Lymphocyte abs 1.91 0.80 - 3.30 K/cumm NEEL Comment:Testing performed by : [address] [address] Monocyte abs 1.44(H) 0.20 - 0.80 K/cumm NEEL Comment:Testing performed by : [address] [address] Eosinophil abs 0.14 0.00 - 0.50 K/cumm NEEL Comment:Testing performed by : [address] [address] Basophil abs 0.07 0.00 - 0.10 K/cumm NEEL Comment:Testing performed by : [address] [address] Neutrophil pct 78.0 % NEEL Comment: Interpretive Data Percent cell count reference ranges are not reported, since discordance with absolute values may lead to misinterpretation of CBC data. Current Interpretive Data was last revised on 2017. Testing performed by: [address] [address] Imm gran pct 0.6 % [facility] Comment: Interpretive Data Percent cell count reference ranges are not reported, since discordance with absolute values may lead to misinterpretation of CBC data. Current Interpretive Data was last revised on 2017. Testing performed by: [address] [address] Lymphocyte pct 11.5 % [facility] Comment: Interpretive Data Percent cell count reference ranges are not reported, since discordance with absolute values may lead to misinterpretation of CBC data. Current Interpretive Data was last revised on 2017. Testing performed by: [address] [address] Monocyte pct 8.7 % [facility] Comment: Interpretive Data Percent cell count reference ranges are not reported, since discordance with absolute values may lead to misinterpretation of CBC data. Current Interpretive Data was last revised on 2017. Testing performed by: [address] [address] Eosinophil pct 0.8 % [facility] Comment: Interpretive Data Percent cell count reference ranges are not reported, since discordance with absolute values may lead to misinterpretation of CBC data. Current Interpretive Data was last revised on 2017. Testing performed by: [address] [address] Basophil pct 0.4 % [facility] Comment: Interpretive Data Percent cell count reference ranges are not reported, since discordance with absolute values may lead to misinterpretation of CBC data. Current Interpretive Data was last revised on 2017. Testing performed by: [address] [address] Blood 10/02/2024 9:51 PM CDT 10/02/2024 9:57 PM CDT us María Elena Calvo MD LAB BLOOD ORDERABLES Renee antunez Result NEEL [address] [facility] Department [place] [address] * (ABNORMAL) CBC with auto differential (10/02/2024 9:51 PM CDT) [facility] WBC 16.57(H) 3.80 - 9.90 K/cumm Comment:Testing performed by : [address], [address] Hgb 13.9 13.0 - 17.5 g/dL NEEL Comment:Testing performed by : [address], [address] Hct 41.0 38.9 - 50.3 % NEEL Comment:Testing performed by : [address], [address] Plt 281 150 - 400 K/cumm NEEL Comment:Testing performed by : [address], [address] MPV 9.9 9.1 - 12.3 fL NEEL Comment:Testing performed by : [address], [address] RBC 4.94 4.30 - 5.80 M/cumm NEEL Comment:Testing performed by : [address], [address] MCV 83.0 81.3 - 96.4 fL NEEL Comment:Testing performed by : [address] [address] MCH 28.1 27.1 - 33.3 pg NEEL Comment:Testing performed by : [address], [address] MCHC 33.9 32.3 - 35.7 g/dL NEEL Comment:Testing performed by : [address], [address] RDW CV 15.4(H) 11.1 - 14.9 % NEEL Comment:Testing performed by : [address], [address] RDW SD 46.5 35.7 - 48.1 fL NEEL Comment:Testing performed by : [address], [address] NRBC abs 0.00 0.00 - 0.01 K/cumm NEEL Comment:Testing performed by : [address] [address] Blood Venous blood specimen / Unknown 10/02/2024 9:51 PM CDT 10/02/2024 9:57 PM CDT María Elena Calvo MD LAB BLOOD ORDERABLES Renee l Result Performing Organization Address [facility] de Phone Number [address] [place] [address] * (ABNORMAL) Lipase (10/02/2024 9:51 PM CDT) Pathologist [facility] Lipase 444(H) 10 - 99 Units/L Comment:Testing performed by : [address] [address] Blood Venous blood specimen / Unknown 10/02/2024 9:51 PM CDT 10/02/2024 9:57 PM CDT María Elena Calvo MD LAB BLOOD ORDERABLES Renee l Result Performing Organization Address [facility] de Phone Number [address] [address] * Comprehensive metabolic panel (10/02/2024 9:51 PM CDT) [facility] Sodium 143 135 - 145 mmol/L Comment:Testing performed by : [address] [address] Potassium, pl 3.9 3.3 - 4.9 mmol/L NEEL Comment:Testing performed by : [address] [address] Chloride 107 97 - 110 mmol/L NEEL Comment:Testing performed by : [address] [address] CO2 22 22 - 32 mmol/L NEEL Comment:Testing performed by : [address] [address] Anion gap 14 2 - 15 mmol/L NEEL Comment:Testing performed by : [address] [address] BUN 7 6 - 25 mg/dL NEEL Comment:Testing performed by : [address] [address] Creatinine 1.08 0.80 - 1.30 mg/dL NEEL Comment:Testing performed by : [address] [address] Glucose 129 70 - 199 mg/dL NEEL Comment: Interpretive [...] was last revised 2022. Testing performed by: [address] [address] Calcium 10.0 8.5 - 10.3 mg/dL NEEL Comment:Testing performed by : [address] [address] Bilirubin, total 0.3 0.1 - 1.2 mg/dL NEEL Comment:Testing performed by : [address] [address] Protein, pl 7.2 6.5 - 8.5 g/dL NEEL Comment:Testing performed by : [address] [address] Albumin 4.5 3.5 - 5.0 g/dL NEEL Comment:Testing performed by : [address] [address] Alk phos 84 40 - 130 Units/L NEEL Comment:Testing performed by : [address] [address] ALT 28 7 - 55 Units/L NEEL Comment:Testing performed by : [address], [place]., [address] AST 37 10 - 50 Units/L NEEL SMITH Comment:Testing performed by : [facility] [place], [address] [place] [address]., [id number] Blood 10/02/2024 9:51 PM CDT 10/02/2024 9:57 PM CDT María Elena Calvo MD LAB BLOOD ORDERABLES Renee antunez Result NEEL SARAH [address] [facility] Department [place] [address] * CT Abdomen Pelvis W Contrast (09/30/2024 6:38 PM CDT) Anatomical Region Laterality Modality Body N/A Computed Tomogra phy 09/30/2024 6:54 PM CDT Narrative 09/30/2024 7:00 PM CDT EXAM DESCRIPTION: CT ABDOMEN PELVIS W CONTRAST REASON FOR STUDY: Abdominal pain, acute, nonlocalized c/o mid abdominal pain and nausea that started last night. Denies vomiting or diarrhea. Reports currently on Amoxicillin and Ibuprofen for oral surgery he had earlier this week. TECHNIQUE: CT scan of the abdomen and pelvis performed with intravenous and without oral contrast using helical scanning technique with dynamic intravenous contrast injection. Reconstructed coronal and sagittal MPR images reviewed. All images stored on PACS. Automated exposure control was used as a dose optimization technique for this examination. CONTRAST TYPE/DOSE: 100mL of IOVERSOL 350 MG IODINE/ML INTRAVENOUS SYRINGE injected via intravenous COMPARISON: 08/16/2024 FINDINGS: LOWER CHEST: The liver is normal in size. A subcentimeter hypoattenuating lesion is seen within the hepatic dome which is too small to further characterize. LIVER: Absent. GALLBLADDER: Pneumobilia, unchanged, likely due to prior sphincterotomy. BILE DUCTS: Spleen is normal in size. SPLEEN: The pancreas is normal in size without significant peripancreatic stranding or main ductal dilatation. PANCREAS: No identified cystic or solid masses. No significant calcifications. No adjacent inflammation or peripancreatic fluid collections. Pancreatic duct not dilated. ADRENALS: Normal. KIDNEYS/URINARY TRACT: The kidneys are normal in size and symmetric in enhancement. No hydronephrosis or significant perinephric stranding. The urinary bladder is partially distended with moderate diffuse indeterminate urinary bladder wall thickening. GI: The colon is nondilated. Thickening of a decompressed left colon is noted in favored to be due to underdistension. The appendix is nondilated. The stomach is partially distended. Narrowing of the gastric outlet is noted in likely physiologic. The small bowel is nondilated without evidence of small-bowel obstruction. PERITONEUM: No free air. No ascites is seen. Small fat containing umbilical hernia. No mesenteric lymphadenopathy. RETROPERITONEUM: Subcentimeter retroperitoneal lymph nodes are noted. No inguinal lymphadenopathy. REPRODUCTIVE: Prostate calcifications are noted. Small fat containing inguinal hernias bilaterally. VASCULATURE: No abdominal aortic aneurysm. MUSCULOSKELETAL: No significant abnormality. OTHER: No other abnormality. IMPRESSION: 1. Indeterminate urinary bladder wall thickening. Recommend correlation with urinalysis and urine cytology. 2. Thickening of a decompressed left colon, favored to be due to underdistension rather than colitis. 3. Additional findings as above. THIS IS AN ELECTRONICALLY VERIFIED FINAL REPORT 09/30/2024 7:00 PM - Electronically signed by Esa Cao M.D. AG: GONZALES Report ID: [id number] Reading Location: [id number] Procedure Note Esa Cao MD - 09/30/2024 EXAM DESCRIPTION: CT ABDOMEN PELVIS W CONTRAST REASON FOR STUDY: Abdominal pain, acute, nonlocalized c/o mid abdominal pain and nausea that started last night. Denies vomitingor diarrhea. Reports currently on Amoxicillin and Ibuprofen for oral surgeryhe had earlier this week. TECHNIQUE: CT scan of the abdomen and pelvis performed with intravenousand without oral contrast using helical scanning technique with dynamic intravenous contrast injection. Reconstructed coronal and sagittal MPRimages reviewed. All images stored on PACS. Automated exposure control was usedas a dose optimization technique for this examination. CONTRAST TYPE/DOSE: 100mL of IOVERSOL 350 MG IODINE/ML INTRAVENOUSSYRINGE injected via intravenous COMPARISON: 08/16/2024 FINDINGS: LOWER CHEST: The liver is normal in size. A subcentimeter hypoattenuating lesion is seen within the hepatic dome which is too smallto further characterize. LIVER: Absent. GALLBLADDER: Pneumobilia, unchanged, likely due to prior sphincterotomy. BILE DUCTS: Spleen is normal in size. SPLEEN: The pancreas is normal in size without significantperipancreatic stranding or main ductal dilatation. PANCREAS: No identified cystic or solid masses. No significant calcifications. No adjacent inflammation or peripancreatic fluidcollections. Pancreatic duct not dilated. ADRENALS: Normal. KIDNEYS/URINARY TRACT: The kidneys are normal in size and symmetric in enhancement. No hydronephrosis or significant perinephric stranding. The urinary bladder is partially distended with moderate diffuse indeterminate urinary bladder wall thickening. GI: The colon is nondilated. Thickening of a decompressed left colon is noted in favored to be due to underdistension. The appendix isnondilated. The stomach is partially distended. Narrowing of the gastric outlet isnoted in likely physiologic. The small bowel is nondilated without evidence of small-bowel obstruction. PERITONEUM: No free air. No ascites is seen. Small fat containing umbilical hernia. No mesenteric lymphadenopathy. RETROPERITONEUM: Subcentimeter retroperitoneal lymph nodes are noted.No inguinal lymphadenopathy. REPRODUCTIVE: Prostate calcifications are noted. Small fat containing inguinal hernias bilaterally. VASCULATURE: No abdominal aortic aneurysm. MUSCULOSKELETAL: No significant abnormality. OTHER: No other abnormality. IMPRESSION: 1. Indeterminate urinary bladder wall thickening. Recommend correlation with urinalysis and urine cytology. 2. Thickening of a decompressed left colon, favored to be due to underdistension rather than colitis. 3. Additional findings as above. THIS IS AN ELECTRONICALLY VERIFIED FINAL REPORT 09/30/2024 7:00 PM - Electronically signed by Esa Cao M.D. AG: GONZALES Report ID: [id number] Reading Location: [id number] Radha Casas DO [facility] [place] PROCEDURES Final Result * (ABNORMAL) Urinalysis reflex to microscopic and culture Urine (09/30/2024 5:55 PM CDT) Color, ur Yellow Yellow Comment:Testing performed by : [address] [address] Clarity, ur Clear Clear NEEL Comment:Testing performed by : [address] [address] Specific gravity, ur 1.035(H) 1.003 - 1.030 NEEL Comment:Testing performed by : [address] [address] pH, urine 6.0 NEEL Comment: Interpretive Data U rine pH is affected by diet, medications, systemic acid-base disturbances, and renal tubular function. pH may affect urinary stone formation. For example, urine pH below 6.0 may help reduce the tendency for calcium phosphate stones and pH greater than 6.0 may reduce the tendency for uric acid stone formation. Source: [facility] Genbook Current Interpretive Data was last revised on 2017 Testing performed by: [address] [address] Protein, ur ql 1+(A) Negative NEEL Comment:Testing performed by : [address] [address] Glucose, ur ql Negative Negative NEEL Comment:Testing performed by : [address] [address] Ketones, ur 1+(A) Negative NEEL Comment:Testing performed by : [address] [address] Bilirubin, ur Negative Negative NEEL Comment:Testing performed by : [address] [address] Blood, ur Negative Negative NEEL Comment:Testing performed by : [address] [address] Urobilinogen, ur 2.0(A) <2.0 mg/dL NEEL Comment:Testing performed by : [address] [address] Nitrite, ur Negative Negative NEEL Comment:Testing performed by : [address] [address] Leukocyte esterase, ur Negative Negative NEEL Comment:Testing performed by : [address] [address] UA reflex comment Reflex to microscopic UA will be performed. NEEL Comment:Testing performed by : [address] [address] Urine 09/30/2024 5:55 PM CDT 09/30/2024 5:57 PM CDT Radha Casas DO LAB MICROBIOLOGY - GENERAL ORDE RABLES Final Result Performing Organization Address [facility] Co de Phone Number NEEL [address] [place] [employer] [place] [address] * (ABNORMAL) Urinalysis, microscopic only (09/30/2024 5:55 PM CDT) WBC, ur 6-10(A) 0 - 5 /HPF Comment:Testing performed by : [address] [address] RBC, ur 3-5(A) 0 - 2 /HPF NEEL Comment:Testing performed by : [address] [address] Epithelial cells, squamous, ur 6-10(A) 0 - 5 /HPF NEEL Comment:Testing performed by : [address] [address] Mucous, ur Present(A) NEEL Comment:Testing performed by : [address] [address] Culture Reflex Comment Reflex conditions for urine culture (WBC >10) not met. NEEL Comment:Testing performed by : [address] [address] Urine 09/30/2024 5:55 PM CDT 09/30/2024 5:57 PM CDT Radha Casas DO LAB URINE ORDERABLES Final Resu lt Performing Organization Address [facility]/ZIP Co de Phone Number QUINTEN[address] [place] [address] * eGFR (09/30/2024 4:01 PM CDT) eGFR >90 >=60 mL/min/1. 73 [...] was last reviewed 2021. Testing performed by: [address] [address] Blood 09/30/2024 4:01 PM CDT 09/30/2024 4:06 PM CDT us Radha Casas DO LAB BLOOD ORDERABLES Final Resu lt NEEL 05[address] [facility] Department of Laboratories [place], [place] [id number] * Differential, auto (09/30/2024 4:01 PM CDT) Pathologist [facility] Neutrophil abs 5.11 1.50 - 6.50 K/cumm Comment:Testing performed by : [address] [address] Imm gran abs 0.04 0.00 - 0.10 K/cumm NEEL SMITH Comment:Testing performed by : [address] [address] Lymphocyte abs 1.62 0.80 - 3.30 K/cumm NEEL SMITH Comment:Testing performed by : [address] [address] Monocyte abs 0.77 0.20 - 0.80 K/cumm [facility] Comment:Testing performed by : [address] [address] Eosinophil abs 0.18 0.00 - 0.50 K/cumm [facility] Comment:Testing performed by : [address] [address] Basophil abs 0.05 0.00 - 0.10 K/cumm [facility] Comment:Testing performed by : [address] [address] Neutrophil pct 65.9 % [facility] Comment: Interpretive Data Percent cell count reference ranges are not reported, since discordance with absolute values may lead to misinterpretation of CBC data. Current Interpretive Data was last revised on 2017. Testing performed by: [address] [address] Imm gran pct 0.5 % [facility] Comment: Interpretive Data Percent cell count reference ranges are not reported, since discordance with absolute values may lead to misinterpretation of CBC data. Current Interpretive Data was last revised on 2017. Testing performed by: [address] [address] Lymphocyte pct 20.8 % [facility] Comment: Interpretive Data Percent cell count reference ranges are not reported, since discordance with absolute values may lead to misinterpretation of CBC data. Current Interpretive Data was last revised on 2017. Testing performed by: [address] [address] Monocyte pct 9.9 % [facility] Comment: Interpretive Data Percent cell count reference ranges are not reported, since discordance with absolute values may lead to misinterpretation of CBC data. Current Interpretive Data was last revised on 2017. Testing performed by: [address] [address] Eosinophil pct 2.3 % [facility] Comment: Interpretive Data Percent cell count reference ranges are not reported, since discordance with absolute values may lead to misinterpretation of CBC data. Current Interpretive Data was last revised on 2017. Testing performed by: [address] [address] Basophil pct 0.6 % NEEL Comment: Interpretive Data Percent cell count reference ranges are not reported, since discordance with absolute values may lead to misinterpretation of CBC data. Current Interpretive Data was last revised on 2017. Testing performed by: [address] [address] Blood 09/30/2024 4:01 PM CDT 09/30/2024 4:06 PM CDT us Radha Casas DO LAB BLOOD ORDERABLES Final Resu lt NEEL 45[address] [facility] Department of Laboratories [place], [place] [id number] * (ABNORMAL) CBC with auto differential (09/30/2024 4:01 PM CDT) WBC 7.77 3.80 - 9.90 K/cumm Comment:Testing performed by : [address] [address] Hgb 14.5 13.0 - 17.5 g/dL NEEL Comment:Testing performed by : [address] [address] Hct 43.0 38.9 - 50.3 % NEEL Comment:Testing performed by : [address] [address] Plt 278 150 - 400 K/cumm NEEL Comment:Testing performed by : [address] [address] MPV 9.8 9.1 - 12.3 fL NEEL Comment:Testing performed by : [address] [address] RBC 5.18 4.30 - 5.80 M/cumm NEEL SMITH Comment:Testing performed by : [address] [address] MCV 83.0 81.3 - 96.4 fL NEEL Comment:Testing performed by : [address] [address] MCH 28.0 27.1 - 33.3 pg NEEL SMITH Comment:Testing performed by : [address] [address] MCHC 33.7 32.3 - 35.7 g/dL NEEL SMITH Comment:Testing performed by : [address] [address] RDW CV 15.3(H) 11.1 - 14.9 % NEEL SMITH Comment:Testing performed by : [address] [address] RDW SD 46.4 35.7 - 48.1 fL NEEL SMITH Comment:Testing performed by : [address] [address] NRBC abs 0.00 0.00 - 0.01 K/cumm NEEL SMITH Comment:Testing performed by : [address] [address] Blood Venous blood specimen / Unknown 09/30/2024 4:01 PM CDT 09/30/2024 4:06 PM CDT Radha Casas LAB BLOOD ORDERABLES Final Resu lt Performing Organization Address City/[facility]/ZIP Co de Phone Number [address] [place] [address] * Lipase (09/30/2024 4:01 PM CDT) Lipase 51 10 - 99 Units/L Comment:Testing performed by : [address] [address] Blood Venous blood specimen / Unknown 09/30/2024 4:01 PM CDT 09/30/2024 4:06 PM CDT Radha Casas LAB BLOOD ORDERABLES Final Resu lt Performing Organization Address City/[facility]/ZIP Co de Phone Number [address] [place] [address] * Comprehensive metabolic panel (09/30/2024 4:01 PM CDT) Sodium 141 135 - 145 mmol/L Comment:Testing performed by : [address], [place]., [address] Potassium, pl 4.0 3.3 - 4.9 mmol/L NEEL Comment:Testing performed by : [address], [place]., [address] Chloride 106 97 - 110 mmol/L NEEL Comment:Testing performed by : [address], [place]., [address] CO2 24 22 - 32 mmol/L NEEL Comment:Testing performed by : [address], [place]., [address] Anion gap 11 2 - 15 mmol/L NEEL Comment:Testing performed by : [address], [place]., [address] BUN 9 6 - 25 mg/dL NEEL Comment:Testing performed by : [address], [place]., [address] Creatinine 1.00 0.80 - 1.30 mg/dL NEEL Comment:Testing performed by : [address], [place]., [address] Glucose 107 70 - 199 mg/dL NEEL [...] was last revised 2022. Testing performed by: [address] [address] Calcium 9.6 8.5 - 10.3 mg/dL NEEL Comment:Testing performed by : [address], [place]., [address] Bilirubin, total 0.4 0.1 - 1.2 mg/dL NEEL SMITH Comment:Testing performed by : [address] [address] Protein, pl 7.1 6.5 - 8.5 g/dL NEEL SMITH Comment:Testing performed by : [address] [address] Albumin 4.3 3.5 - 5.0 g/dL NEEL SMITH Comment:Testing performed by : [address] [address] Alk phos 87 40 - 130 Units/L NEEL Comment:Testing performed by : [address] [address] ALT 25 7 - 55 Units/L NEEL SMITH Comment:Testing performed by : [address] [address] AST 25 10 - 50 Units/L NEEL Comment:Testing performed by : [address] [address] Blood 09/30/2024 4:01 PM CDT 09/30/2024 4:06 PM CDT us Radha Casas DO LAB BLOOD ORDERABLES Final Resu lt NEEL SMITH 9[address] [facility] Department [place] [address] * CT Abdomen Pelvis W Contrast (08/16/2024 4:01 AM CDT) Anatomical Region Laterality Modality Body N/A Computed Tomogra phy 08/16/2024 8:08 AM CDT Impressions 08/16/2024 8:36 AM CDT Markedly distended stomach with ingested contents without evidence of obstructing lesion. Preliminary results were given by the tele-radiologist commercial drone pilot Dr. Olivera Dictated by: Mario Newsome MD PHD The radiology attending physician has personally reviewed this study, and had reviewed and/or edited this written report and agrees with it. Electronically signed by: Srikanth Dexter M.D. Narrative 08/16/2024 8:36 AM CDT EXAMINATION: CT ABDOMEN PELVIS W CONTRAST HISTORY: Abdominal pain, history of cyclic vomiting syndrome and pancreatitis, leukocytosis TECHNIQUE: Transaxial computed tomographic images of the abdomen and pelvis were obtained with intravenous contrast according to the standard protocol after the uneventful administration of 100 mL Opti-Ray 350 intravenous contrast. COMPARISON: 08/10/2024 FINDINGS: Clear lung bases. Imaged heart is normal in size with no pericardial effusion. No suspicious hepatic lesion. Hypodense lesions too small to characterize are unchanged and likely represent small cysts. No biliary ductal dilatation. There is mild increase of small volume pneumobilia. Cholecystectomy changes. Patent portal vein. Normal pancreas. The adrenal glands and spleen are normal. Kidneys enhance symmetrically without hydronephrosis. Normal urinary bladder. The prostate is normal in size. Normal appendix. No abnormal bowel wall thickening. No evidence of bowel obstruction. No ascites or pneumoperitoneum. Tiny fat-containing ventral abdominal hernia. The stomach is distended with ingested contents. Normal course of the duodenal sweep. Abdominal aorta is normal in course and caliber with patent intra-abdominal vasculature. No lymphadenopathy seen in the abdomen or pelvis. No suspicious osseous lesion. Procedure Note Srikanth Dexter MD - 08/16/2024 EXAMINATION: CT ABDOMEN PELVIS W CONTRAST HISTORY: Abdominal pain, history of cyclic vomiting syndrome and pancreatitis, leukocytosis TECHNIQUE: Transaxial computed tomographic images of the abdomen and pelvis were obtained with intravenous contrast according to the standard protocol after the uneventful administration of 100 mL Opti-Ray 350 intravenous contrast. COMPARISON: 08/10/2024 FINDINGS: Clear lung bases. Imaged heart is normal in size with no pericardial effusion. No suspicious hepatic lesion. Hypodense lesions too small to characterize are unchanged and likely represent small cysts. No biliary ductal dilatation. There is mild increase of small volume pneumobilia. Cholecystectomy changes. Patent portal vein. Normal pancreas. The adrenal glands and spleen are normal. Kidneys enhance symmetrically without hydronephrosis. Normal urinary bladder. The prostate is normal in size. Normal appendix. No abnormal bowel wall thickening. No evidence of bowel obstruction. No ascites or pneumoperitoneum. Tiny fat-containing ventral abdominal hernia. The stomach is distended with ingested contents. Normal course of the duodenal sweep. Abdominal aorta is normal in course and caliber with patent intra-abdominal vasculature. No lymphadenopathy seen in the abdomen or pelvis. No suspicious osseous lesion. IMPRESSION: Markedly distended stomach with ingested contents without evidence of obstructing lesion. Preliminary results were given by the tele-radiologist commercial drone pilot Dr. Olivera Dictated by: Mario Newsome MD PHD The radiology attending physician has personally reviewed this study, and had reviewed and/or edited this written report and agrees with it. Electronically signed by: Srikanth Dexter M.D. Ashlie Burgess MD IMG CT PROCEDURES Final Re sult * eGFR (08/16/2024 3:42 AM CDT) eGFR >90 >=60 mL/min/1. 73 [...] interpretive data was last reviewed 2021. Blood 08/16/2024 3:42 AM CDT 08/16/2024 4:15 AM CDT Ashlie Burgess MD LAB BLOOD ORDERABLES Final Result [facility] [address] [facility]. [place] [address] * (ABNORMAL) Differential, auto (08/16/2024 3:42 AM CDT) Neutrophil abs 14.88(H) 1.50 - 6.50 K/cumm Imm gran abs 0.10 0.00 - 0.10 K/cumm NEEL REESECH Lymphocyte abs 1.94 0.80 - 3.30 K/cumm [facility] Monocyte abs 1.47(H) 0.20 - 0.80 K/cumm [facility] Eosinophil abs 0.16 0.00 - 0.50 K/cumm [facility] Basophil abs 0.09 0.00 - 0.10 K/cumm [facility] Neutrophil pct 79.8 % [facility] Comment: Interpretive Data Percent cell count reference ranges are not reported, since discordance with absolute values may lead to misinterpretation of CBC data. Current Interpretive Data was last revised on 2017. Imm gran pct 0.5 % NEEL [facility] Comment: Interpretive Data Percent cell count reference ranges are not reported, since discordance with absolute values may lead to misinterpretation of CBC data. Current Interpretive Data was last revised on 2017. Lymphocyte pct 10.4 % NEEL [facility] Comment: Interpretive Data Percent cell count reference ranges are not reported, since discordance with absolute values may lead to misinterpretation of CBC data. Current Interpretive Data was last revised on 2017. Monocyte pct 7.9 % NEEL [facility] Comment: Interpretive Data Percent cell count reference ranges are not reported, since discordance with absolute values may lead to misinterpretation of CBC data. Current Interpretive Data was last revised on 2017. Eosinophil pct 0.9 % NEEL [facility] Comment: Interpretive Data Percent cell count reference ranges are not reported, since discordance with absolute values may lead to misinterpretation of CBC data. Current Interpretive Data was last revised on 2017. Basophil pct 0.5 % NEEL [facility] Comment: Interpretive Data Percent cell count reference ranges are not reported, since discordance with absolute values may lead to misinterpretation of CBC data. Current Interpretive Data was last revised on 2017. Blood 08/16/2024 3:42 AM CDT 08/16/2024 4:15 AM CDT us Ashlie Burgess MD LAB BLOOD ORDERABLES Final Result NEEL REESE [address] Department [place] [address] * (ABNORMAL) CBC with auto differential (08/16/2024 3:42 AM CDT) Pathologist [facility] WBC 18.64(H) 3.80 - 9.90 K/cumm Hgb 14.6 13.0 - 17.5 g/dL [facility] Hct 43.6 38.9 - 50.3 % [facility] Plt 325 150 - 400 K/cumm [facility] MPV 10.0 9.1 - 12.3 fL [facility] RBC 5.23 4.30 - 5.80 M/cumm [facility] MCV 83.4 81.3 - 96.4 fL [facility] MCH 27.9 27.1 - 33.3 pg [facility] MCHC 33.5 32.3 - 35.7 g/dL [facility] RDW CV 15.9(H) 11.1 - 14.9 % [facility] RDW SD 48.6(H) 35.7 - 48.1 fL [facility] NRBC abs 0.00 0.00 - 0.01 K/cumm [facility] Blood Venous blood specimen / Unknown 08/16/2024 3:42 AM CDT 08/16/2024 4:15 AM CDT Ashlie Burgess MD LAB BLOOD ORDERABLES Final Result [facility] [address] [facility] [place] [address] * Lipase (08/16/2024 3:42 AM CDT) [facility] Lipase 32 10 - 99 Units/L Blood Venous blood specimen / Unknown 08/16/2024 3:42 AM CDT 08/16/2024 4:15 AM CDT Ashlie Burgess MD LAB BLOOD ORDERABLES Final Result NEEL GUZMÁN [address] [address] [place] [address] * Comprehensive metabolic panel (08/16/2024 3:42 AM CDT) Sodium 139 135 - 145 mmol/L Potassium, pl 4.1 3.3 - 4.9 mmol/L [facility] Chloride 100 97 - 110 mmol/L [facility] CO2 24 22 - 32 mmol/L [facility] Anion gap 15 2 - 15 mmol/L [facility] BUN 10 6 - 25 mg/dL [facility] Creatinine 0.97 0.80 - 1.30 mg/dL [facility] Glucose 116 70 - 199 mg/dL [facility] Comment: Interpretive Data Fasting glucose >/= 126 [...] interpretive data was last revised 2022. Calcium 10.2 8.5 - 10.3 mg/dL [facility] Bilirubin, total 0.4 0.1 - 1.2 mg/dL [facility] Protein, pl 7.4 6.5 - 8.5 g/dL [facility] Albumin 4.4 3.5 - 5.0 g/dL [facility] Alk phos 86 40 - 130 Units/L [facility] ALT 23 7 - 55 Units/L [facility] AST 19 10 - 50 Units/L [facility] Blood 08/16/2024 3:42 AM CDT 08/16/2024 4:15 AM CDT Ashlie Burgess MD LAB BLOOD ORDERABLES Final Result NEEL GUZM[facility]N [id number] [facility] [address] * Sepsis Lactate w/ Reflex (08/13/2024 5:52 PM CDT) Sepsis Lactate 1.1 0.7 - 2.0 mmol/L Blood 08/13/2024 5:52 PM CDT 08/13/2024 5:58 PM CDT us Crista Bower MD LAB BLOOD ORDERABLES Final Result [facility] [address] [facility] [place] [address] * eGFR (08/13/2024 4:29 PM CDT) eGFR >90 >=60 mL/min/1. 73 [...] interpretive data was last reviewed 2021. Blood 08/13/2024 4:29 PM CDT 08/13/2024 4:38 PM CDT us Crista Bower MD LAB BLOOD ORDERABLES Final Result [facility] [address] [facility] [place] [address] * (ABNORMAL) Differential, auto (08/13/2024 4:29 PM CDT) Neutrophil abs 15.65(H) 1.50 - 6.50 K/cumm Imm gran abs 0.09 0.00 - 0.10 K/cumm [facility] Lymphocyte abs 1.38 0.80 - 3.30 K/cumm [facility] Monocyte abs 1.33(H) 0.20 - 0.80 K/cumm [facility] Eosinophil abs 0.09 0.00 - 0.50 K/cumm [facility] Basophil abs 0.05 0.00 - 0.10 K/cumm [facility] Neutrophil pct 84.1 % [facility] Comment: Interpretive Data Percent cell count reference ranges are not reported, since discordance with absolute values may lead to misinterpretation of CBC data. Current Interpretive Data was last revised on 2017. Imm gran pct 0.5 % [facility] Comment: Interpretive Data Percent cell count reference ranges are not reported, since discordance with absolute values may lead to misinterpretation of CBC data. Current Interpretive Data was last revised on 2017. Lymphocyte pct 7.4 % [facility] Comment: Interpretive Data Percent cell count reference ranges are not reported, since discordance with absolute values may lead to misinterpretation of CBC data. Current Interpretive Data was last revised on 2017. Monocyte pct 7.2 % [facility] Comment: Interpretive Data Percent cell count reference ranges are not reported, since discordance with absolute values may lead to misinterpretation of CBC data. Current Interpretive Data was last revised on 2017. Eosinophil pct 0.5 % [facility] Comment: Interpretive Data Percent cell count reference ranges are not reported, since discordance with absolute values may lead to misinterpretation of CBC data. Current Interpretive Data was last revised on 2017. Basophil pct 0.3 % [facility] Comment: Interpretive Data Percent cell count reference ranges are not reported, since discordance with absolute values may lead to misinterpretation of CBC data. Current Interpretive Data was last revised on 2017. Blood 08/13/2024 4:29 PM CDT 08/13/2024 4:38 PM CDT us Crista Bower MD LAB BLOOD ORDERABLES Final Result Performing Organization Address [facility]/ZIP Co de Phone Number [facility] [address] [place] [address] * (ABNORMAL) CBC with auto differential (08/13/2024 4:29 PM CDT) WBC 18.59(H) 3.80 - 9.90 K/cumm Hgb 14.6 13.0 - 17.5 g/dL [facility] Hct 43.7 38.9 - 50.3 % [facility] Plt 335 150 - 400 K/cumm [facility] MPV 10.0 9.1 - 12.3 fL [facility] RBC 5.15 4.30 - 5.80 M/cumm [facility] MCV 84.9 81.3 - 96.4 fL [facility] MCH 28.3 27.1 - 33.3 pg [facility] MCHC 33.4 32.3 - 35.7 g/dL [facility] RDW CV 15.9(H) 11.1 - 14.9 % [facility] RDW SD 49.5(H) 35.7 - 48.1 fL [facility] NRBC abs 0.00 0.00 - 0.01 K/cumm [facility] Blood Venous blood specimen / Unknown 08/13/2024 4:29 PM CDT 08/13/2024 4:38 PM CDT us Crista Bower MD LAB BLOOD ORDERABLES Final Result [facility] [address] [place] [address] * Lipase (08/13/2024 4:29 PM CDT) Lipase 20 10 - 99 Units/L Blood Venous blood specimen / Unknown 08/13/2024 4:29 PM CDT 08/13/2024 4:38 PM CDT us Crista Bower MD LAB BLOOD ORDERABLES Final Result [facility] [address] [place] [address] * (ABNORMAL) Comprehensive metabolic panel (08/13/2024 4:29 PM CDT) [facility] Sodium 138 135 - 145 mmol/L Potassium, pl 4.0 3.3 - 4.9 mmol/L [facility] Chloride 104 97 - 110 mmol/L [facility] CO2 21(L) 22 - 32 mmol/L [facility] Anion gap 13 2 - 15 mmol/L [facility] BUN 8 6 - 25 mg/dL [facility] Creatinine 0.91 0.80 - 1.30 mg/dL [facility] Glucose 118 70 - 199 mg/dL [facility] Comment: Interpretive Data Fasting glucose [...] interpretive data was last revised 2022. Calcium 9.3 8.5 - 10.3 mg/dL [facility] Bilirubin, total 0.4 0.1 - 1.2 mg/dL [facility] Protein, pl 7.2 6.5 - 8.5 g/dL [facility] Albumin 4.1 3.5 - 5.0 g/dL [facility] Alk phos 86 40 - 130 Units/L [facility] ALT 25 7 - 55 Units/L [facility] AST 22 10 - 50 Units/L [facility] Blood 08/13/2024 4:29 PM CDT 08/13/2024 4:38 PM CDT us Crista Bower MD LAB BLOOD ORDERABLES Final Result Performing Organization Address [facility] Co de Phone Number [facility] [address] [place] [address] * eGFR (08/12/2024 10:58 AM CDT) eGFR >90 >=60 mL/min/1. 73 [...] interpretive data was last reviewed 2021. Blood 08/12/2024 10:5 8 AM CDT 08/12/2024 11:33 AM CDT us Reinaldo Avitia MD LAB BLOOD ORDERABLES Final R esult Performing Organization Address [facility]/ZIP Co de Phone Number [facility] [address] Department of Laboratories [place], [place] [id number] * (ABNORMAL) CBC without differential (08/12/2024 10:58 AM CDT) WBC 7.15 3.80 - 9.90 K/cumm Hgb 13.4 13.0 - 17.5 g/dL [facility] Hct 41.3 38.9 - 50.3 % [facility] Plt 301 150 - 400 K/cumm [facility] MPV 10.1 9.1 - 12.3 fL [facility] RBC 4.81 4.30 - 5.80 M/cumm [facility] MCV 85.9 81.3 - 96.4 fL [facility] MCH 27.9 27.1 - 33.3 pg [facility] MCHC 32.4 32.3 - 35.7 g/dL [facility] RDW CV 16.1(H) 11.1 - 14.9 % [facility] RDW SD 50.2(H) 35.7 - 48.1 fL [facility] NRBC abs 0.00 0.00 - 0.01 K/cumm [facility] Blood 08/12/2024 10:5 8 AM CDT 08/12/2024 11:33 AM CDT us Reinaldo Avitia MD LAB BLOOD ORDERABLES Final R esult [facility] [address] Department [place] [address] * (ABNORMAL) Basic metabolic panel (08/12/2024 10:58 AM CDT) Sodium 139 135 - 145 mmol/L Potassium, pl 4.3 3.3 - 4.9 mmol/L [facility] Chloride 105 97 - 110 mmol/L [facility] CO2 21(L) 22 - 32 mmol/L [facility] Anion gap 13 2 - 15 mmol/L [facility] BUN 6 6 - 25 mg/dL [facility] Creatinine 0.92 0.80 - 1.30 mg/dL [facility] Glucose 130 70 - 199 mg/dL [facility] Comment: Interpretive Data Fasting glucose [...] interpretive data was last revised 2022. Calcium 8.7 8.5 - 10.3 mg/dL [facility] Blood 08/12/2024 10:5 8 AM CDT 08/12/2024 11:33 AM CDT us Reinaldo Avitia MD LAB BLOOD ORDERABLES Final R esult [facility] [address] [place] [address] * EGD (08/11/2024 3:25 PM CDT) Anatomical Region Laterality Modality Other Narrative Procedure Note Georges Luna MD - 08/11/2024 3:25 PM CDT ENDOSCOPY LAB Patient Name: Donovan Bailey Procedure Date: 08/11/2024 3:25 PM Admit Type: Inpatient Room: [facility] Date of : 1980 Instrument Name: [id number] Gender: Male Note Status: Finalized Procedure: Upper GI endoscopy Indications: Abdominal pain in the left upper quadrant Providers: Georges Luna M.D. Referring MD: Td Lopez M.D. Medicines: Propofol per Anesthesia Complications: No immediate complications. Estimated Blood Loss: Estimated blood loss: none. Procedure: Pre-Anesthesia Assessment: - After reviewing the risks and benefits, thepatient was deemed in satisfactory condition to undergo the procedure. The benefits, risks, and alternatives to theprocedure and sedation were discussed and informed consentwas obtained. The scope was passed under direct vision. The Endoscope was introduced through the mouth, and advanced to the second part of duodenum. The upperGI endoscopy was accomplished without difficulty. The patient tolerated the procedure well. Findings: The examined esophagus was normal. The entire examined stomach was normal. The examined duodenum was normal. Impression: - Normal esophagus. - Normal stomach. - Normal examined duodenum. - No specimens collected. Recommendation: - [facility] - Diet as tolerated - Recommend weaning narcotics - At this time, the GI service will sign off. Call with questions Dr. Georges Luna Georges Luna M.D. 08/11/2024 3:45:00 PM This document was signed electronically. Number of Addenda: 0 Note Initiated On: 08/11/2024 3:25 PM Scope In: Scope Out: us Georges Luna MD ENDOSCOPY PROCEDURE S Final Result * eGFR (08/11/2024 6:15 AM CDT) eGFR >90 >=60 mL/min/1. 73 [...] interpretive data was last reviewed 2021. Blood 08/11/2024 6:15 AM CDT 08/11/2024 6:53 AM CDT Chris Villatoro DO LAB BLOOD ORDERABLES F inal Result [facility] [address] [place] [address] * (ABNORMAL) Differential, auto (08/11/2024 6:15 AM CDT) Neutrophil abs 2.30 1.50 - 6.50 K/cumm Imm gran abs 0.01 0.00 - 0.10 K/cumm [facility] Lymphocyte abs 3.06 0.80 - 3.30 K/cumm [facility] Monocyte abs 0.99(H) 0.20 - 0.80 K/cumm [facility] Eosinophil abs 0.24 0.00 - 0.50 K/cumm [facility] Basophil abs 0.06 0.00 - 0.10 K/cumm [facility] Neutrophil pct 34.5 % [facility] Comment: Interpretive Data Percent cell count reference ranges are not reported, since discordance with absolute values may lead to misinterpretation of CBC data. Current Interpretive Data was last revised on 2017. Imm gran pct 0.2 % [facility] Comment: Interpretive Data Percent cell count reference ranges are not reported, since discordance with absolute values may lead to misinterpretation of CBC data. Current Interpretive Data was last revised on 2017. Lymphocyte pct 45.9 % [facility] Comment: Interpretive Data Percent cell count reference ranges are not reported, since discordance with absolute values may lead to misinterpretation of CBC data. Current Interpretive Data was last revised on 2017. Monocyte pct 14.9 % [facility] Comment: Interpretive Data Percent cell count reference ranges are not reported, since discordance with absolute values may lead to misinterpretation of CBC data. Current Interpretive Data was last revised on 2017. Eosinophil pct 3.6 % [facility] Comment: Interpretive Data Percent cell count reference ranges are not reported, since discordance with absolute values may lead to misinterpretation of CBC data. Current Interpretive Data was last revised on 2017. Basophil pct 0.9 % [facility] Comment: Interpretive Data Percent cell count reference ranges are not reported, since discordance with absolute values may lead to misinterpretation of CBC data. Current Interpretive Data was last revised on 2017. Blood 08/11/2024 6:15 AM CDT 08/11/2024 6:54 AM CDT us Chris Villatoro DO LAB BLOOD ORDERABLES F inal Result [facility] [address] [place] [address] * (ABNORMAL) CBC with auto differential (08/11/2024 6:15 AM CDT) WBC 6.66 3.80 - 9.90 K/cumm Hgb 12.2(L) 13.0 - 17.5 g/dL [facility] Hct 37.8(L) 38.9 - 50.3 % [facility] Plt 274 150 - 400 K/cumm [facility] MPV 10.2 9.1 - 12.3 fL [facility] RBC 4.38 4.30 - 5.80 M/cumm [facility] MCV 86.3 81.3 - 96.4 fL [facility] MCH 27.9 27.1 - 33.3 pg [facility] MCHC 32.3 32.3 - 35.7 g/dL [facility] RDW CV 16.3(H) 11.1 - 14.9 % [facility] RDW SD 51.3(H) 35.7 - 48.1 fL [facility] NRBC abs 0.00 0.00 - 0.01 K/cumm [facility] Blood 08/11/2024 6:15 AM CDT 08/11/2024 6:54 AM CDT Chris Julian Cassandralewis LAB BLOOD ORDERABLES F inal Result Performing Organization Address [facility] Co de Phone Number [facility] [address] [place] [address] * Magnesium (08/11/2024 6:15 AM CDT) [facility] Magnesium 2.2 1.4 - 2.5 mg/dL Blood 08/11/2024 6:15 AM CDT 08/11/2024 6:53 AM CDT Chris Villatoro LAB BLOOD ORDERABLES F inal Result Performing Organization Address [facility] de Phone Number [facility] [address] [employer] [place], [place] [id number] * Basic metabolic panel (08/11/2024 6:15 AM CDT) [facility] Sodium 139 135 - 145 mmol/L Potassium, pl 4.0 3.3 - 4.9 mmol/L [facility] Chloride 107 97 - 110 mmol/L [facility] CO2 24 22 - 32 mmol/L [facility] Anion gap 8 2 - 15 mmol/L [facility] BUN 6 6 - 25 mg/dL [facility] Creatinine 0.81 0.80 - 1.30 mg/dL [facility] Glucose 88 70 - 199 mg/dL [facility] Comment: Interpretive Data Fasting glucose [...] interpretive data was last revised 2022. Calcium 8.5 8.5 - 10.3 mg/dL [facility] Blood 08/11/2024 6:15 AM CDT 08/11/2024 6:53 AM CDT us Chris Villatoro DO LAB BLOOD ORDERABLES F inal Result [facility] [address] [place] [address] * CT Abdomen Pelvis W Contrast (08/10/2024 5:31 AM CDT) Anatomical Region Laterality Modality Body N/A Computed Tomogra phy 08/10/2024 5:25 AM CDT Impressions 08/10/2024 10:33 AM CDT 1. Mild wall thickening of the ascending colon and hepatic flexure possibly due to under distention but can also be seen in the setting of a mild colitis. Correlate clinically. 2. Otherwise no acute abnormal abdomen and pelvis with additional findings as above. For the purposes of quality assurance project manager, this study was initially interpreted by teleradiology. There is no significant discrepancy. Electronically signed by: Varghese Beyer M.D. Narrative 08/10/2024 10:33 AM CDT EXAM: CT ABDOMEN PELVIS W CONTRAST INDICATION: Abdominal pain, acute, nonlocalized COMPARISON: CT 08/02/2024 TECHNIQUE: Contrast enhanced CT of the abdomen and pelvis with multiplanar reformats performed. CONTRAST: 72 cc IV Optiray FINDINGS: Visualized heart is normal in size. Tiny hiatal hernia. Imaged lung bases are clear. No new suspicious focal hepatic lesion. Gallbladder surgically absent. Decrease in now minimal pneumobilia. No new biliary ductal dilation. The spleen is unremarkable. The pancreas is unremarkable. Adrenal glands are unremarkable. The kidneys enhance symmetrically without hydronephrosis or obstructing calculus. No abnormally distended loops of bowel or evidence of obstruction. No evidence of appendicitis. There is mild wall thickening of the colon at the ascending colon near the hepatic flexure. The portal vein and SMV are grossly patent. IVC is unremarkable. Calcifications of the abdominal aorta. The abdominal aorta and its major branches are grossly patent. No new suspicious abdominal lymphadenopathy. No significant free fluid is seen in the abdomen. Subtle stranding seen at the mesenteric root is unchanged. No free intraperitoneal air. Small fat-containing umbilical hernia. Bladder is unremarkable. Coarse prostatic calcifications again seen. No significant pelvic free fluid. No new suspicious pelvic or inguinal lymphadenopathy. Small right-sided fat-containing inguinal hernia. No acute superficial soft tissue abnormality. Osseous structures are intact. Procedure Note Varghese Beyer MD - 08/10/2024 EXAM: CT ABDOMEN PELVIS W CONTRAST INDICATION: Abdominal pain, acute, nonlocalized COMPARISON: CT 08/02/2024 TECHNIQUE: Contrast enhanced CT of the abdomen and pelvis with multiplanar reformats performed. CONTRAST: 72 cc IV Optiray FINDINGS: Visualized heart is normal in size. Tiny hiatal hernia. Imaged lung bases are clear. No new suspicious focal hepatic lesion. Gallbladder surgically absent. Decrease in now minimal pneumobilia. No new biliary ductal dilation. The spleen is unremarkable. The pancreas is unremarkable. Adrenal glands are unremarkable. The kidneys enhance symmetrically without hydronephrosis or obstructing calculus. No abnormally distended loops of bowel or evidence of obstruction. No evidence of appendicitis. There is mild wall thickening of the colon at the ascending colon near the hepatic flexure. The portal vein and SMV are grossly patent. IVC is unremarkable. Calcifications of the abdominal aorta. The abdominal aorta and its major branches are grossly patent. No new suspicious abdominal lymphadenopathy. No significant free fluid is seen in the abdomen. Subtle stranding seen at the mesenteric root is unchanged. No free intraperitoneal air. Small fat-containing umbilical hernia. Bladder is unremarkable. Coarse prostatic calcifications again seen. No significant pelvic free fluid. No new suspicious pelvic or inguinal lymphadenopathy. Small right-sided fat-containing inguinal hernia. No acute superficial soft tissue abnormality. Osseous structures are intact. IMPRESSION: 1. Mild wall thickening of the ascending colon and hepatic flexure possibly due to under distention but can also be seen in the setting of a mild colitis. Correlate clinically. 2. Otherwise no acute abnormal abdomen and pelvis with additional findings as above. For the purposes of quality assurance project manager, this study was initially interpreted by teleradiology. There is no significant discrepancy. Electronically signed by: Varghese Beyer M.D. Domenic Arias MD IMG CT PROCEDURES Final Resu lt * eGFR (08/10/2024 3:54 AM CDT) eGFR >90 >=60 mL/min/1. 73 [...] interpretive data was last reviewed 2021. Blood 08/10/2024 3:54 AM CDT 08/10/2024 4:06 AM CDT Domenic Arias MD LAB BLOOD ORDERABLES Final R esult [facility] [address] Department [place] [address] * (ABNORMAL) Differential, auto (08/10/2024 3:54 AM CDT) Neutrophil abs 18.28(H) 1.50 - 6.50 K/cumm Imm gran abs 0.10 0.00 - 0.10 K/cumm [facility] Lymphocyte abs 1.52 0.80 - 3.30 K/cumm [facility] Monocyte abs 1.50(H) 0.20 - 0.80 K/cumm [facility] Eosinophil abs 0.12 0.00 - 0.50 K/cumm [facility] Basophil abs 0.08 0.00 - 0.10 K/cumm [facility] Neutrophil pct 84.6 % [facility] Comment: Interpretive Data Percent cell count reference ranges are not reported, since discordance with absolute values may lead to misinterpretation of CBC data. Current Interpretive Data was last revised on 2017. Imm gran pct 0.5 % [facility] Comment: Interpretive Data Percent cell count reference ranges are not reported, since discordance with absolute values may lead to misinterpretation of CBC data. Current Interpretive Data was last revised on 2017. Lymphocyte pct 7.0 % [facility] Comment: Interpretive Data Percent cell count reference ranges are not reported, since discordance with absolute values may lead to misinterpretation of CBC data. Current Interpretive Data was last revised on 2017. Monocyte pct 6.9 % [facility] Comment: Interpretive Data Percent cell count reference ranges are not reported, since discordance with absolute values may lead to misinterpretation of CBC data. Current Interpretive Data was last revised on 2017. Eosinophil pct 0.6 % [facility] Comment: Interpretive Data Percent cell count reference ranges are not reported, since discordance with absolute values may lead to misinterpretation of CBC data. Current Interpretive Data was last revised on 2017. Basophil pct 0.4 % [facility] Comment: Interpretive Data Percent cell count reference ranges are not reported, since discordance with absolute values may lead to misinterpretation of CBC data. Current Interpretive Data was last revised on 2017. Blood 08/10/2024 3:54 AM CDT 08/10/2024 4:06 AM CDT us Domenic Arias MD LAB BLOOD ORDERABLES Final R esult [facility] [address] [place] [address] * (ABNORMAL) CBC with auto differential (08/10/2024 3:54 AM CDT) [facility] WBC 21.60(H) 3.80 - 9.90 K/cumm Hgb 14.0 13.0 - 17.5 g/dL [facility] Hct 43.0 38.9 - 50.3 % [facility] Plt 333 150 - 400 K/cumm [facility] MPV 10.0 9.1 - 12.3 fL [facility] RBC 5.07 4.30 - 5.80 M/cumm [facility] MCV 84.8 81.3 - 96.4 fL [facility] MCH 27.6 27.1 - 33.3 pg [facility] MCHC 32.6 32.3 - 35.7 g/dL [facility] RDW CV 16.4(H) 11.1 - 14.9 % [facility] RDW SD 50.1(H) 35.7 - 48.1 fL [facility] NRBC abs 0.00 0.00 - 0.01 K/cumm [facility] Blood Venous blood specimen / Unknown 08/10/2024 3:54 AM CDT 08/10/2024 4:06 AM CDT Domenic Arias MD LAB BLOOD ORDERABLES Final R esult [facility] [address] [place] [address] * Lipase (08/10/2024 3:54 AM CDT) [facility] Lipase 27 10 - 99 Units/L Blood Venous blood specimen / Unknown 08/10/2024 3:54 AM CDT 08/10/2024 4:06 AM CDT Domenic Arias MD LAB BLOOD ORDERABLES Final R esult [facility] [facility] [address] [place] [address] * (ABNORMAL) Comprehensive metabolic panel (08/10/2024 3:54 AM CDT) Sodium 132(L) 135 - 145 mmol/L Potassium, pl 3.9 3.3 - 4.9 mmol/L [facility] Chloride 96(L) 97 - 110 mmol/L [facility] CO2 20(L) 22 - 32 mmol/L [facility] Anion gap 16(H) 2 - 15 mmol/L [facility] BUN 7 6 - 25 mg/dL [facility] Creatinine 0.95 0.80 - 1.30 mg/dL [facility] Glucose 124 70 - 199 mg/dL [facility] Comment: Interpretive Data Fasting glucose [...] interpretive data was last revised 2022. Calcium 9.2 8.5 - 10.3 mg/dL [facility] Bilirubin, total 0.4 0.1 - 1.2 mg/dL [facility] Protein, pl 7.1 6.5 - 8.5 g/dL [facility] Albumin 4.5 3.5 - 5.0 g/dL [facility] Alk phos 81 40 - 130 Units/L [facility] ALT 23 7 - 55 Units/L [facility] AST 24 10 - 50 Units/L [facility] Comment:Slightly Hemolyzed S pecimen Blood 08/10/2024 3:54 AM CDT 08/10/2024 4:06 AM CDT Domenic Arias MD LAB BLOOD ORDERABLES Final R esult [facility] [address] Department [place] [address] * eGFR (08/07/2024 3:20 AM CDT) Pathologist [facility] eGFR >90 >=60 mL/min/1. 73 m2 Comment: [...] interpretive data was last reviewed 2021. Blood 08/07/2024 3:20 AM CDT 08/07/2024 3:45 AM CDT Justice Patel MD LAB BLOOD ORDERABLES Fi nal Result [facility] [address] Department [place] [address] * (ABNORMAL) Differential, auto (08/07/2024 3:20 AM CDT) Pathologist [facility] Neutrophil abs 8.4(H) 1.5 - 6.5 K/cumm Imm gran abs 0.0 0.0 - 0.1 K/cumm [facility] Lymphocyte abs 1.5 0.8 - 3.3 K/cumm [facility] Monocyte abs 1.3(H) 0.2 - 0.8 K/cumm [facility] Eosinophil abs 0.1 0.0 - 0.5 K/cumm [facility] Basophil abs 0.1 0.0 - 0.1 K/cumm [facility] Neutrophil pct 74.1 % [facility] Comment: Interpretive Data Percent cell count reference ranges are not reported, since discordance with absolute values may lead to misinterpretation of CBC data. Current Interpretive Data was last revised on 2017. Imm gran pct 0.4 % [facility] Comment: Interpretive Data Percent cell count reference ranges are not reported, since discordance with absolute values may lead to misinterpretation of CBC data. Current Interpretive Data was last revised on 2017. Lymphocyte pct 13.4 % [facility] Comment: Interpretive Data Percent cell count reference ranges are not reported, since discordance with absolute values may lead to misinterpretation of CBC data. Current Interpretive Data was last revised on 2017. Monocyte pct 11.3 % [facility] Comment: Interpretive Data Percent cell count reference ranges are not reported, since discordance with absolute values may lead to misinterpretation of CBC data. Current Interpretive Data was last revised on 2017. Eosinophil pct 0.4 % [facility] Comment: Interpretive Data Percent cell count reference ranges are not reported, since discordance with absolute values may lead to misinterpretation of CBC data. Current Interpretive Data was last revised on 2017. Basophil pct 0.4 % [facility] Comment: Interpretive Data Percent cell count reference ranges are not reported, since discordance with absolute values may lead to misinterpretation of CBC data. Current Interpretive Data was last revised on 2017. Blood 08/07/2024 3:20 AM CDT 08/07/2024 3:44 AM CDT us Justice Patel MD LAB BLOOD ORDERABLES Fi nal Result [facility] [address] Department [place] [address] * (ABNORMAL) CBC with auto differential (08/07/2024 3:20 AM CDT) WBC 11.3(H) 3.8 - 9.9 K/cumm Hgb 12.9(L) 13.0 - 17.5 g/dL [facility] Hct 39.6 38.9 - 50.3 % [facility] Plt 294 150 - 400 K/cumm [facility] MPV 9.8 9.1 - 12.3 fL [facility] RBC 4.63 4.30 - 5.80 M/cumm [facility] MCV 85.5 81.3 - 96.4 fL [facility] MCH 27.9 27.1 - 33.3 pg [facility] MCHC 32.6 32.3 - 35.7 g/dL [facility] RDW CV 16.4(H) 11.1 - 14.9 % [facility] RDW SD 51.0(H) 35.7 - 48.1 fL [facility] NRBC abs 0.00 0.00 - 0.01 K/cumm [facility] Blood 08/07/2024 3:20 AM CDT 08/07/2024 3:44 AM CDT Justice Patel MD LAB BLOOD ORDERABLES Fi nal Result Performing Organization Address [facility] Co de Phone Number [facility] [address] [employer] [place], [place] [id number] * Lipase (08/07/2024 3:20 AM CDT) Pathologist [facility] Lipase 40 10 - 99 Units/L Blood 08/07/2024 3:20 AM CDT 08/07/2024 3:45 AM CDT Justice Patel MD LAB BLOOD ORDERABLES Fi nal Result Performing Organization Address City/[facility]/ZIP Co de Phone Number [facility] [address] [facility] [employer] [place], [place] [id number] * (ABNORMAL) Comprehensive metabolic panel (08/07/2024 3:20 AM CDT) Pathologist [facility] Sodium 138 135 - 145 mmol/L Potassium, pl 3.9 3.3 - 4.9 mmol/L [facility] Chloride 103 97 - 110 mmol/L [facility] CO2 21(L) 22 - 32 mmol/L [facility] Anion gap 14 2 - 15 mmol/L [facility] BUN 9 6 - 25 mg/dL [facility] Creatinine 0.92 0.80 - 1.30 mg/dL [facility] Glucose 107 70 - 199 mg/dL [facility] Comment: Interpretive Data Fasting glucose [...] interpretive data was last revised 2022. Calcium 8.8 8.5 - 10.3 mg/dL [facility] Bilirubin, total 0.6 0.1 - 1.2 mg/dL [facility] Protein, pl 6.3(L) 6.5 - 8.5 g/dL [facility] Albumin 4.1 3.5 - 5.0 g/dL [facility] Alk phos 74 40 - 130 Units/L [facility] ALT 23 7 - 55 Units/L [facility] AST 24 10 - 50 Units/L [facility] Comment:Slightly Hemolyzed S pecimen Blood 08/07/2024 3:20 AM CDT 08/07/2024 3:45 AM CDT us Justice Patel MD LAB BLOOD ORDERABLES Fi nal Result [facility] [address] Department [place] [address] * SCAN - RADIOLOGY/IMAGING (08/05/2024) Anatomical Region Laterality Modality Other us Provider Scanning Final Result * Urinalysis reflex to microscopic and culture Urine (08/03/2024 1:50 PM CDT) Color, ur Yellow Yellow Comment:Testing performed by : [address] [address] Clarity, ur Clear Clear NEEL Comment:Testing performed by : [address], [place]., [address] Specific gravity, ur 1.009 1.003 - 1.030 NEEL Comment:Testing performed by : [address] [address] pH, urine 7.0 NEEL Comment: Interpretive Data U rine pH is affected by diet, medications, systemic acid-base disturbances, and renal tubular function. pH may affect urinary stone formation. For example, urine pH below 6.0 may help reduce the tendency for calcium phosphate stones and pH greater than 6.0 may reduce the tendency for uric acid stone formation. Source: [facility] [employer] Current Interpretive Data was last revised on 2017 Testing performed by: [address] [address] Protein, ur ql Negative Negative NEEL Comment:Testing performed by : [address] [address] Glucose, ur ql Negative Negative NEEL Comment:Testing performed by : [address] [address] Ketones, ur Negative Negative NEEL Comment:Testing performed by : [address] [address] Bilirubin, ur Negative Negative NEEL Comment:Testing performed by : [address] [address] Blood, ur Negative Negative NEEL Comment:Testing performed by : [address], [place]., [address] Urobilinogen, ur <2.0 <2.0 mg/dL NEEL Comment:Testing performed by : [address] [address] Nitrite, ur Negative Negative NEEL Comment:Testing performed by : [address] [address] Leukocyte esterase, ur Negative Negative NEEL Comment:Testing performed by : [facility], [address] [place] [address]., [address] UA reflex comment Reflex conditions for microscopic UA and culture not met. NEEL Comment:Testing performed by : [address] [address] Urine 08/03/2024 1:50 PM CDT 08/03/2024 1:53 PM CDT Freddy Yao DO LAB MICROBIOLOGY - GENERAL ORDERABLES Final Result Performing Organization Address City/[facility]/ZIP Co de Phone Number NEEL [address] Department [place] [address] * eGFR (08/03/2024 1:45 PM CDT) eGFR [...] was last reviewed 2021. Testing performed by: [address] [address] Blood 08/03/2024 1:45 PM CDT 08/03/2024 1:53 PM CDT Freddy Yao DO LAB BLOOD ORDERABLES Final Result Performing Organization Address City/[facility]/ZIP Co de Phone Number NEEL [address] Department [place] [address] * (ABNORMAL) Differential, auto (08/03/2024 1:45 PM CDT) Neutrophil abs 7.8(H) 1.5 - 6.5 K/cumm Comment:Testing performed by : [address] [address] Imm gran abs 0.1 0.0 - 0.1 K/cumm NEEL Comment:Testing performed by : [address] [address] Lymphocyte abs 2.5 0.8 - 3.3 K/cumm NEEL Comment:Testing performed by : [address] [address] Monocyte abs 1.4(H) 0.2 - 0.8 K/cumm NEEL Comment:Testing performed by : [address] [address] Eosinophil abs 0.1 0.0 - 0.5 K/cumm NEEL Comment:Testing performed by : [address] [address] Basophil abs 0.1 0.0 - 0.1 K/cumm NEEL Comment:Testing performed by : [address] [address] Neutrophil pct 65.5 % NEEL Comment: Interpretive Data Percent cell count reference ranges are not reported, since discordance with absolute values may lead to misinterpretation of CBC data. Current Interpretive Data was last revised on 2017. Testing performed by: [address] [address] Imm gran pct 0.5 % NEEL Comment: Interpretive Data Percent cell count reference ranges are not reported, since discordance with absolute values may lead to misinterpretation of CBC data. Current Interpretive Data was last revised on 2017. Testing performed by: [address] [address] Lymphocyte pct 21.0 % NEEL Comment: Interpretive Data Percent cell count reference ranges are not reported, since discordance with absolute values may lead to misinterpretation of CBC data. Current Interpretive Data was last revised on 2017. Testing performed by: [address] [address] Monocyte pct 11.6 % NEEL Comment: Interpretive Data Percent cell count reference ranges are not reported, since discordance with absolute values may lead to misinterpretation of CBC data. Current Interpretive Data was last revised on 2017. Testing performed by: [address] [address] Eosinophil pct 0.8 % NEEL Comment: Interpretive Data Percent cell count reference ranges are not reported, since discordance with absolute values may lead to misinterpretation of CBC data. Current Interpretive Data was last revised on 2017. Testing performed by: [address] [address] Basophil pct 0.6 % NEEL Comment: Interpretive Data Percent cell count reference ranges are not reported, since discordance with absolute values may lead to misinterpretation of CBC data. Current Interpretive Data was last revised on 2017. Testing performed by: [address] [address] Blood 08/03/2024 1:45 PM CDT 08/03/2024 1:53 PM CDT us Freddy Yao DO LAB BLOOD ORDERABLES Final Result [facility] [address] [facility] Department [place] [address] * (ABNORMAL) CBC with auto differential (08/03/2024 1:45 PM CDT) WBC 11.9(H) 3.8 - 9.9 K/cumm Comment:Testing performed by : [address] [address] Hgb 13.3 13.0 - 17.5 g/dL NEEL Comment:Testing performed by : [address] [address] Hct 40.4 38.9 - 50.3 % NEEL Comment:Testing performed by : [address] [address] Plt 333 150 - 400 K/cumm NEEL Comment:Testing performed by : [address] [address] MPV 10.3 9.1 - 12.3 fL NEEL Comment:Testing performed by : [address] [address] RBC 4.81 4.30 - 5.80 M/cumm NEEL Comment:Testing performed by : [address] [address] MCV 84.0 81.3 - 96.4 fL NEEL Comment:Testing performed by : [address] [address] MCH 27.7 27.1 - 33.3 pg NEEL Comment:Testing performed by : [address] [address] MCHC 32.9 32.3 - 35.7 g/dL NEEL Comment:Testing performed by : [address] [address] RDW CV 16.4(H) 11.1 - 14.9 % NEEL Comment:Testing performed by : [address] [address] RDW SD 50.0(H) 35.7 - 48.1 fL NEEL Comment:Testing performed by : [address], [address] NRBC abs 0.00 0.00 - 0.01 K/cumm NEEL Comment:Testing performed by : [address], [address] Blood Venous blood specimen / Unknown 08/03/2024 1:45 PM CDT 08/03/2024 1:53 PM CDT Freddy Yao DO LAB BLOOD ORDERABLES Final Result NEEL [address] Department [place] [address] * Lipase (08/03/2024 1:45 PM CDT) Lipase 58 10 - 99 Units/L Comment:Testing performed by : [address] [address] Blood Venous blood specimen / Unknown 08/03/2024 1:45 PM CDT 08/03/2024 1:53 PM CDT Freddy Yao DO LAB BLOOD ORDERABLES Final Result [facility] [address] [facility] [place] [address] * Comprehensive metabolic panel (08/03/2024 1:45 PM CDT) Pathologist [facility] Sodium 142 135 - 145 mmol/L Comment:Testing performed by : [address] [address] Potassium, pl 3.9 3.3 - 4.9 mmol/L NEEL Comment:Testing performed by : [address] [address] Chloride 108 97 - 110 mmol/L NEEL Comment:Testing performed by : [address] [address] CO2 23 22 - 32 mmol/L NEEL Comment:Testing performed by : [address] [address] Anion gap 11 2 - 15 mmol/L NEEL Comment:Testing performed by : [address] [address] BUN 9 6 - 25 mg/dL NEEL Comment:Testing performed by : [address] [address] Creatinine 0.90 0.80 - 1.30 mg/dL NEEL Comment:Testing performed by : [address] [address] Glucose 107 70 - 199 mg/dL NEEL [...] was last revised 2022. Testing performed by: [address] [address] Calcium 9.4 8.5 - 10.3 mg/dL NEEL Comment:Testing performed by : [address] [address] Bilirubin, total 0.3 0.1 - 1.2 mg/dL NEEL Comment:Testing performed by : [address] [address] Protein, pl 7.1 6.5 - 8.5 g/dL NEEL Comment:Testing performed by : [address] [address] Albumin 4.3 3.5 - 5.0 g/dL NEEL Comment:Testing performed by : [address] [address] Alk phos 80 40 - 130 Units/L NEEL Comment:Testing performed by : [address] [address] ALT 23 7 - 55 Units/L NEEL Comment:Testing performed by : [address] [address] AST 32 10 - 50 Units/L NEEL Comment:Testing performed by : [address] [address] Blood 08/03/2024 1:45 PM CDT 08/03/2024 1:53 PM CDT us Freddy Yao DO LAB BLOOD ORDERABLES Final Result NEEL [address] [facility] Department [place] [address] * CT Abdomen Pelvis W Contrast (08/02/2024 [...] Priti Salmeron M.D. TW: JENNA Report ID: [id number] Reading Location: [place] [address] Procedure Note Priti Salmeron MD - 08/02/2024 [...] Priti Salmeron M.D. TW: JENNA Report ID: [id number] Reading Location: [id number] Vijaya [facility] PROCEDURES Final Result * (ABNORMAL) Urinalysis reflex to microscopic and culture Urine (08/02/2024 8:48 AM CDT) Color, ur Yellow Yellow Comment:Testing performed by : [facility], [address] [place] [address]., [address] Clarity, ur Clear Clear NEEL Comment:Testing performed by : [address] [address] Specific gravity, ur 1.025 1.003 - 1.030 NEEL Comment:Testing performed by : [facility], [address] [place] [address]., [address] pH, urine 8.0 NEEL Comment: Interpretive Data U rine pH is affected by diet, medications, systemic acid-base disturbances, and renal tubular function. pH may affect urinary stone formation. For example, urine pH below 6.0 may help reduce the tendency for calcium phosphate stones and pH greater than 6.0 may reduce the tendency for uric acid stone formation. Source: [facility] [employer] Current Interpretive Data was last revised on 2017 Testing performed by: [facility], [address] [place] [address], [place]., [address] Protein, ur ql 1+(A) Negative NEEL Comment:Testing performed by : [address], [place]., [address] Glucose, ur ql Trace(A) Negative NEEL Comment:Testing performed by : [address] [address] Ketones, ur 2+(A) Negative NEEL Comment:Testing performed by : [address], [place]., [address] Bilirubin, ur Negative Negative NEEL Comment:Testing performed by : [address], [place]., [address] Blood, ur Negative Negative NEEL Comment:Testing performed by : [address] [address] Urobilinogen, ur <2.0 <2.0 mg/dL NEEL Comment:Testing performed by : [address] [address] Nitrite, ur Negative Negative NEEL Comment:Testing performed by : [address] [address] Leukocyte esterase, ur Negative Negative NEEL Comment:Testing performed by : [address], [place]., [address] UA reflex comment Reflex to microscopic UA will be performed. NEEL Comment:Testing performed by : [address], [place]., [address] Urine 08/02/2024 8:48 AM CDT 08/02/2024 8:54 AM CDT Freddy Yao DO LAB MICROBIOLOGY - GENERAL ORDERABLES Final Result Performing Organization Address [facility] de Phone Number NEEL [address] [place] [address] * (ABNORMAL) Urinalysis, microscopic only (08/02/2024 8:48 AM CDT) WBC, ur 0-5 0 - 5 /HPF Comment:Testing performed by : [facility], [address] [place] [address]., [address] RBC, ur 0-2 0 - 2 /HPF NEEL Comment:Testing performed by : [facility], [address] [place] [address]., [address] Epithelial cells, squamous, ur 1-5 0 - 5 /HPF NEEL Comment:Testing performed by : [address] [address] Mucous, ur Present(A) NEEL Comment:Testing performed by : [address] [address] Culture Reflex Comment Reflex conditions for urine culture (WBC >10) not met. NEEL Comment:Testing performed by : [address] [address] Urine 08/02/2024 8:48 AM CDT 08/02/2024 8:54 AM CDT Freddy Yao DO LAB URINE ORDERABLES Final Result Performing Organization Address [facility] Co de Phone Number NEEL [address] [facility] [place] [address] * eGFR (08/02/2024 8:43 AM CDT) eGFR [...] was last reviewed 2021. Testing performed by: [address] [address] Blood 08/02/2024 8:43 AM CDT 08/02/2024 8:53 AM CDT Freddy Yao DO LAB BLOOD ORDERABLES Final Result NEEL [facility] [facility] Department of Laboratories [place], [place] [id number] * (ABNORMAL) Differential, auto (08/02/2024 8:43 AM CDT) Neutrophil abs 12.1(H) 1.5 - 6.5 K/cumm Comment:Testing performed by : [address] [address] Imm gran abs 0.1 0.0 - 0.1 K/cumm NEEL Comment:Testing performed by : [address] [address] Lymphocyte abs 0.9 0.8 - 3.3 K/cumm NEEL Comment:Testing performed by : [address] [address] Monocyte abs 0.7 0.2 - 0.8 K/cumm NEEL Comment:Testing performed by : [address] [address] Eosinophil abs 0.0 0.0 - 0.5 K/cumm NEEL Comment:Testing performed by : [address] [address] Basophil abs 0.0 0.0 - 0.1 K/cumm NEEL Comment:Testing performed by : [address] [address] Neutrophil pct 88.2 % [facility] Comment: Interpretive Data Percent cell count reference ranges are not reported, since discordance with absolute values may lead to misinterpretation of CBC data. Current Interpretive Data was last revised on 2017. Testing performed by: [address] [address] Imm gran pct 0.4 % [facility] Comment: Interpretive Data Percent cell count reference ranges are not reported, since discordance with absolute values may lead to misinterpretation of CBC data. Current Interpretive Data was last revised on 2017. Testing performed by: [address] [address] Lymphocyte pct 6.6 % [facility] Comment: Interpretive Data Percent cell count reference ranges are not reported, since discordance with absolute values may lead to misinterpretation of CBC data. Current Interpretive Data was last revised on 2017. Testing performed by: [address] [address] Monocyte pct 4.7 % [facility] Comment: Interpretive Data Percent cell count reference ranges are not reported, since discordance with absolute values may lead to misinterpretation of CBC data. Current Interpretive Data was last revised on 2017. Testing performed by: [address] [address] Eosinophil pct 0.0 % [facility] Comment: Interpretive Data Percent cell count reference ranges are not reported, since discordance with absolute values may lead to misinterpretation of CBC data. Current Interpretive Data was last revised on 2017. Testing performed by: [address] [address] Basophil pct 0.1 % [facility] Comment: Interpretive Data Percent cell count reference ranges are not reported, since discordance with absolute values may lead to misinterpretation of CBC data. Current Interpretive Data was last revised on 2017. Testing performed by: [address] [address] Blood 08/02/2024 8:43 AM CDT 08/02/2024 8:53 AM CDT us Freddy Yao DO LAB BLOOD ORDERABLES Final Result [facility] [address] [facility] Department [place] [address] * (ABNORMAL) CBC with auto differential (08/02/2024 8:43 AM CDT) WBC 13.7(H) 3.8 - 9.9 K/cumm Comment:Testing performed by : [address] [address] Hgb 12.9(L) 13.0 - 17.5 g/dL NEEL Comment:Testing performed by : [address] [address] Hct 38.3(L) 38.9 - 50.3 % NEEL Comment:Testing performed by : [address] [address] Plt 310 150 - 400 K/cumm NEEL Comment:Testing performed by : [address] [address] MPV 9.9 9.1 - 12.3 fL NEEL Comment:Testing performed by : [address] [address] RBC 4.63 4.30 - 5.80 M/cumm NEEL SMITH Comment:Testing performed by : [address] [address] MCV 82.7 81.3 - 96.4 fL NEEL SMITH Comment:Testing performed by : [address] [address] MCH 27.9 27.1 - 33.3 pg NEEL SMITH Comment:Testing performed by : [address] [address] MCHC 33.7 32.3 - 35.7 g/dL NEEL SMITH Comment:Testing performed by : [address] [address] RDW CV 15.9(H) 11.1 - 14.9 % NEEL SMITH Comment:Testing performed by : [address] [address] RDW SD 48.1 35.7 - 48.1 fL NEEL Comment:Testing performed by : [address] [address] NRBC abs 0.00 0.00 - 0.01 K/cumm NEEL Comment:Testing performed by : [address] [address] Blood Venous blood specimen / Unknown 08/02/2024 8:43 AM CDT 08/02/2024 8:53 AM CDT Freddy Yao DO LAB BLOOD ORDERABLES Final Result Performing Organization Address City/[facility] Co de Phone Number [address] [employer] [place] [address] * Lipase (08/02/2024 8:43 AM CDT) Pathologist [facility] Lipase 28 10 - 99 Units/L Comment:Testing performed by : [address] [address] Blood Venous blood specimen / Unknown 08/02/2024 8:43 AM CDT 08/02/2024 8:53 AM CDT Freddy Yao DO LAB BLOOD ORDERABLES Final Result Performing Organization Address City/State/[facility] Co de Phone Number [address] [address] * Comprehensive metabolic panel (08/02/2024 8:43 AM CDT) Sodium 143 135 - 145 mmol/L Comment:Testing performed by : [address] [address] Potassium, pl 3.9 3.3 - 4.9 mmol/L [facility] Comment:Testing performed by : [address] [address] Chloride 107 97 - 110 mmol/L [facility] Comment:Testing performed by : [address], [place]., [address] CO2 22 22 - 32 mmol/L [facility] Comment:Testing performed by : [address] [address] Anion gap 14 2 - 15 mmol/L [facility] Comment:Testing performed by : [address], [place]., [address] BUN 9 6 - 25 mg/dL [facility] Comment:Testing performed by : [address], [place]., [address] Creatinine 0.90 0.80 - 1.30 mg/dL [facility] Comment:Testing performed by : [address] [address] Glucose 161 70 - 199 mg/dL [facility] Comment: Interpretive Data Fasting glucose [...] was last revised 2022. Testing performed by: [address] [address] Calcium 9.0 8.5 - 10.3 mg/dL [facility] Comment:Testing performed by : [address] [address] Bilirubin, total 0.5 0.1 - 1.2 mg/dL [facility] Comment:Testing performed by : [address] [address] Protein, pl 7.1 6.5 - 8.5 g/dL [facility] Comment:Testing performed by : [facility] [address] [place] [address]., [address] Albumin 4.3 3.5 - 5.0 g/dL NEEL SMITH Comment:Testing performed by : [address] [address] Alk phos 81 40 - 130 Units/L NEEL SMITH Comment:Testing performed by : [address] [address] ALT 20 7 - 55 Units/L NEEL SMITH Comment:Testing performed by : [address] [address] AST 26 10 - 50 Units/L NEEL Comment:Testing performed by : [address] [address] Blood 08/02/2024 8:43 AM CDT 08/02/2024 8:53 AM CDT Freddy Yao DO LAB BLOOD ORDERABLES Final Result Performing Organization Address City/State/[facility] Co de Phone Number NEEL [address] [facility] Department of Laboratories [place], [place] [phone] from Last 3 Months Insurance [facility] [place] [address] [facility] Advance Directives For more information, please contact: [phone] * Full Code (Latest Code Status on File) Date Activated Date Inactivated Comments 10/03/2024 3:29 AM 10/03/2024 3:45 PM * Full Code Date Activated Date Inactivated Comments 08/10/2024 8:35 AM 08/12/2024 5:04 PM * Full Code Date Activated Date Inactivated Comments 11/15/2023 12:50 PM 11/16/2023 7:54 PM * Full Code Date Activated Date Inactivated Comments 09/20/2023 10:48 PM 09/24/2023 4:31 PM * Full Code Date Activated Date Inactivated Comments 06/30/2022 8:00 AM 06/30/2022 5:06 PM Care Teams Boiler Tube Blower Relationship Specialty Start Date End Date Td Lopez MD [address] [facility] [address] [place] [address] PCP - General Family Medicine 11/09/20 Angie Woodard MD [address] [facility] [address] [place] [address] Consulting Physician Gastroenterology 07/17/21 Vimal Woodruff MD [address] [facility] [address] [place] [address] Consulting Physician Gastroenterology 02/10/22
--- OUTSIDE RECORDS SUMMARY | 2024-10-10 22:12 | XMS_ITS | Clinical Summary ---
Author Organization [facility] Address [address] [place] [address] Care Team Providers Care Cow Tender Name Role Phone Alee Zhao MD Primary Care Provider [phone] Source Comments [facility],non-owned Affiliates and Associated Physician Practices is amultiple site organization consisting of ambulatory clinics and hospital sitesin [place], [place], [place] and [place]. This disclosure is being madepursuant to the Care Everywhere program and may not contain all information available regarding this patient. Last updated 18.[facility] Allergies Active Allergy Reactions Criticality Noted Date Comments Doxycycline Nausea Low 06/11/2017 Metoclopramide Other Low 06/11/2017 Muscle tremors Sulfa Drugs Other Low 06/11/2017 Muscle tremors Medications * Be aware that medications may not be up to date on this document. Alwaysverify current medications with the patient. HYDROcodone-ac etaminophen (NORCO) 5-325 MG tablet Take 1-2 tablets by mouth every 6 hours as needed for Pain Do not exceed 3 grams of acetaminophen (TYLENOL) daily. 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 Gender Identity Not on file Sexual Orientation Not on file Last Filed Vital Signs Vital Sign Reading Time Taken Comments Blood Pressure 120/71 03/17/2019 5:03 PM CAREER AND TRANSITION TEACHER Pulse 75 03/17/2019 5:03 PM CAREER AND TRANSITION TEACHER Temperature 36.9 C (98.4 F) 03/17/2019 2:00 PM CAREER AND TRANSITION TEACHER Respiratory Rate 17 03/17/2019 5:03 PM CAREER AND TRANSITION TEACHER Oxygen Saturation 99% 03/17/2019 5:03 PM CAREER AND TRANSITION TEACHER Inhaled Oxygen Concentration - - Weight 77.1 kg (170 lb) 03/17/2019 2:00 PM CAREER AND TRANSITION TEACHER Height 177.8 cm (5' 10) 03/17/2019 2:00 PM CAREER AND TRANSITION TEACHER Body Mass Index 24.39 03/17/2019 2:00 PM CAREER AND TRANSITION TEACHER Plan of Treatment Health Maintenance Due Date Last Done Comments LIPID TESTING 1981 DTAP/TDAP/TD VACCINES (1 - Tdap) 2000 HEPATITIS B VACCINE (1 of 3 - 19+ 3-dose series) 2000 COVID-19 VACCINE ( - 2023-2 5 season) 2024 DEPRESSION SCREENING 05/11/2024 INFLUENZA VACCINE (Season Ended) 2025 ZOSTER VACCINE (1 of 2) 2031 HEPATITIS [...] RFLX NAAT QUANT STAT 03/27/2018 9:12 PM CAREER AND TRANSITION TEACHER HIV-1 HIV-2 ANTIGEN/ANTIBODY STAT 03/27/2018 9:12 PM CAREER AND TRANSITION TEACHER from Last 3 Months or Most Recently Relevant to Health Maintenance Results * HIV-1 HIV-2 ANTIGEN/ANTIBODY (03/27/2018 9:12 PM CAREER AND TRANSITION TEACHER) HIV Antigen/Antibod y 1 & 2 Non-reacti ve Non-react nemesio 03/27/2018 10:17 PM CAREER AND TRANSITION TEACHER [facility] Comment: Neither HIV-1 p24 Antigen nor HIV-1/HIV-2 Antibodies are detected. Blood BLOOD SPECIMEN / Unknown Venipuncture / Unknown 03/27/2018 9:12 PM CAREER AND TRANSITION TEACHER 03/27/2018 9:21 PM CAREER AND TRANSITION TEACHER us Davi Patrick MD LAB - HEMATOLOGY ORDERABLES Fi nal Result Performing Organization Address [facility] Co de Phone Number [address] [phone] * HEPATITIS C AB SCREEN RFLX NAAT QUANT (03/27/2018 9:12 PM CAREER AND TRANSITION TEACHER) Hepatitis C Antibody Non-react nemesio Non-reac tive 03/27/2018 10:20 PM CAREER AND TRANSITION TEACHER [facility] Comment: Hepatitis C Antibody screen indicates no serologic evidence of past or current infection with Hepatitis C Virus. Patients with unexplained liver disease who are immunocompromised or suspected of having acute Hepatitis C infection may benefit from Nucleic Acid Test (RINKU) for Hepatitis C Viral RNA to confirm Hepatitis C status. Blood BLOOD SPECIMEN / Unknown Venipuncture / Unknown 03/27/2018 9:12 PM CAREER AND TRANSITION TEACHER 03/27/2018 9:21 PM CAREER AND TRANSITION TEACHER us Davi Patrick MD LAB - CHEMISTRY ORDERABLES Fin al Result Performing Organization Address [facility] Co de Phone Number [address] [phone] from Last 3 Months or Most Recently Relevant to Health Maintenance Insurance [facility] Care Teams Cow Tender Relationship Specialty Start Date End Date Alee Zhao MD [address] [place] [phone] PCP - General Family Medicine 03/25/18
--- OUTSIDE RECORDS SUMMARY | 2024-10-10 22:12 | XMS_ITS | Encounter Summary ---
Author Organization [facility] Address [address] [place] [address] Care Team Providers Care Power Shovel Engineer Name Role Phone Td Lopez MD Primary Care Provider + Angie Woodard MD Unavailable [phone] Vimal Woodruff MD Unavailable [phone] Reason for Visit * Reason Comments Abdominal Pain Encounter Details Date Type Department Care Team (Late st Contact Info) Description 10/08/2024 7:54 PM CDT - 10/08/2024 8:06 PM CDT Emergency [facility] Emergency Department [address] [place] [id number] Chronic abdominal pain (Primary Dx) Discharge Disposition: Discharge to home or self care Social History Tobacco Use Types Packs/Day Years Used Date Smoking Tobacco: Every Day Cigarettes Smokeless Tobacco: Never Alcohol Use Standard Drinks/Week Comments Not Currently 0 (1 standard drink = 0.6 oz pur e alcohol) [facility] Utilities Answer Date Recorded In the past 12 months has [employer], gas, oil, or water [employer] threatened to shut off services in your [...] week 08/11/2024 How often do you attend [facility] or mormonism services? Never 08/11/2024 Do you belong to [...] any time in the past 12 m [facility], were you homeless or living in a snf (including now)? No 08/11/2024 Personal Safety Answer Date Recorded Have you ever been in or are you currently in a harmful physical or emotional relationship or is someone making you feel afraid or unsafe? 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 Gender Identity Not on file Sexual [...] Mass Index 23.25 10/08/2024 7:18 PM CDT documented in this encounter Medications at Time of Discharge chlorhexidine (PERIDEX) 0.12 % oral rinse Swish and spit 15 mL 2 (two) times a day 118 mL 10/03/2024 famotidine (PEPCID) 40 mg tabletIndications:G astroesophageal reflux disease without esophagitis Take 1 tablet (40 mg total) by mouth daily 90 tablet 1 10/06/2024 10/07/19 HYDROcodone-acetami nophen (NORCO) 5-325 mg per tabletIndications:P ain Take 1 tablet by mouth every 8 (eight) hours as needed for pain 12 tablet 10/06/2024 hyoscyamine (OSCIMIN) 0.125 mg Take 1 tablet (0.125 mg total) by mouth every 8 (eight) hours as needed 01/25/2024 ibuprofen (ADVIL,MOTRIN) 400 mg tablet Take 1 tablet (400 mg total) by mouth every 8 (eight) hours as needed for pain 20 tablet 10/03/2024 lidocaine viscous (XYLOCAINE) 2 % solutionIndications :Mouth Irritation Apply 10 mL to the mouth or throat every 3 (three) hours 200 mL 10/03/2024 ondansetron ODT (ZOFRAN-ODT) 4 mg disintegrating tablet Take 1 tablet (4 mg total) by mouth every 8 (eight) hours as needed for nausea or vomiting 20 tablet 08/13/[address] (PROTONIX) 40 mg EC tabletIndications:T reatment of Non-Bleeding Gastric Disorder Take 1 tablet (40 mg total) by mouth daily 90 tablet 1 10/06/2024 amoxicillin-clavula kassie (AUGMENTIN) 875-125 mg per tabletIndications:g um infection Take 1 tablet (875 mg of amoxicillin total) by mouth 2 (two) times a day for 5 days 10 tablet 10/03/2024 10/09/19 25 documented as of this encounter Discharge Disposition Disposition Code Departure Means Destination Comment s Discharge to home or self care documented in this encounter ED Notes * Lilliana Duncan PA - 10/08/2024 7:57 PM CDT History of Present Illness Chief Complaint Patient presents with Abdominal Pain 10:05 PM Donovan Bailey is a 44 y.o. male presenting to the ED c/o abd pain and nausea onset today.Pt reports h/o pancreatitis. Of note, the pt was just seen yesterday for this. He has had multiple ER for this. Pt denies fever,chills, other GI symptoms, CP, SOB. No other complaints at this time. Past Medical History: Diagnosis Date Anxiety and depression Cannabis abuse with cannabis-induced disorder Cyclic vomiting syndrome Drug-seeking behavior GERD (gastroesophageal reflux disease) Manipulative behavior Pancreatic insufficiency Pancreatitis Sphincter of Oddi dysfunction Past Surgical History: Procedure Laterality Date ERCP LAPAROSCOPIC CHOLECYSTECTOMY Family History Problem Relation Age of Onset Osteoarthritis Mother Family history of osteoarthritis - (Added by TW Conv) Physical Exam Blood pressure (!) 154/121, pulse 88, temperature 37.3 ??C (99.1 ??F), temperature source Oral, resp. rate 20, height 177.8 cm (5' 10), weight 73.5 kg (162 lb 0.6 oz), SpO2 98%. Nursing notes and vital signs reviewed GENERAL: Non-toxic appearing, Well-appearing, appears stated age HEENT: NCAT, EOMI, sclera anicteric, conjunctiva are normal, nares patent, MMM NECK: Normal inspection, supple, full ROM LUNGS: Breath sounds are clear to auscultation bilaterally, no adventitious breath sounds, no distress CV: Regular rate and rhythm, no murmurs or gallops heard GI: exam is very difficult as pt is voluntarily guarding. Soft, nondistended, nontender, bowel sounds are present. No peritoneal signs. MSK: MAEW, no obvious deformities. Steady gait. NEURO: Speech is clear. Alert and oriented x4 PSYCH: restless, anxious, poor eye contact. SKIN: goosebumps present to BUE Procedures NA Medical Decision Making This is a 44 y.o. male with PMH of Chronic illnesses Affecting Care- pancreatitis, cyclic vomiting syndrome, smoker, polysubstance abuse, drug seeking behavior- presents to the ED with abd pain. Differential diagnosis includes Acute surgical abdomen, SBO, ischemic bowel, genital torsion, dissection, pancreatitis, gastritis, acute gallbladder pathology, appendicitis, diverticulitis, bladder infection, kidney stone, and many others. Plan: Orders placed via triage. Sources of Information Pt is primary historian. I have reviewed pt's pertinent previous records, clinic notes, H&Ps, nursing notes, VS, outsiderecords, including care everywhere tab. Studies and Interpretation Vital Signs: BP (!) 154/121 Pulse 88 Temp 37.3 ??C (99.1 ??F) (Oral) Resp 20 Ht 177.8 cm (5' 10) Wt 73.5 kg (162 lb 0.6 oz) SpO2 98% BMI 23.25 kg/m?? Management Discussions, Medical Complexity, and Risk See applicable ED consultations above. 2001 Presentation today is most c/w opiate withdrawal. Very stable labs. Negative lipase. I offeredthe pt opioid withdrawal therapy with RN and CSN present. He told me I was condescending as he exited the ER. He's stable for d/c. Final Diagnosis: 1. Chronic abdominal pain Follow Up No follow-up provider specified. Lilliana Duncan PA 10/08/242204 * Sonal Salazar RN - 10/08/2024 7:17 PM CDT Pt arrived with c/o of abd pain and nausea. Pt has hx of pancreatitis and has had multiple ER visits recently. documented in this encounter Plan of Treatment Not on file documented as of this encounter Procedures Procedure Name Priority Date/Time Associated Diagnosis Comments EGFR STAT 10/08/2024 7:25 PM CDT DIFFERENTIAL AUTO STAT 10/08/2024 7:2 5 PM CDT CBC WITH AUTO DIFFERENTIAL STAT 10/08/2024 7:25 PM CDT LIPASE STAT 10/08/2024 7:25 PM CDT COMPREHENSIVE METABOLIC PANEL STAT 10/08/2024 7:25 PM CDT documented in this encounter Results * eGFR (10/08/2024 7:25 PM CDT) [...] was last reviewed 2021. Testing performed by: [address] [address] Blood 10/08/2024 7:25 PM CDT 10/08/2024 7:29 PM CDT Lilliana LAWTON LAB BLOOD ORDERABLES Final Result NEEL [address] [place] [address] * (ABNORMAL) Differential, auto (10/08/2024 7:25 PM CDT) Neutrophil abs 5.02 1.50 - 6.50 K/cumm Comment:Testing performed by : [address] [address] Imm gran abs 0.04 0.00 - 0.10 K/cumm NEEL Comment:Testing performed by : [address] [address] Lymphocyte abs 3.13 0.80 - 3.30 K/cumm NEEL Comment:Testing performed by : [address] [address] Monocyte abs 1.11(H) 0.20 - 0.80 K/cumm NEEL Comment:Testing performed by : [address] [address] Eosinophil abs 0.10 0.00 - 0.50 K/cumm NEEL Comment:Testing performed by : [address] [address] Basophil abs 0.06 0.00 - 0.10 K/cumm NEEL Comment:Testing performed by : [address] [address] Neutrophil pct 53.1 % [facility] Comment: Interpretive Data Percent cell count reference ranges are not reported, since discordance with absolute values may lead to misinterpretation of CBC data. Current Interpretive Data was last revised on 2017. Testing performed by: [address] [address] Imm gran pct 0.4 % [facility] Comment: Interpretive Data Percent cell count reference ranges are not reported, since discordance with absolute values may lead to misinterpretation of CBC data. Current Interpretive Data was last revised on 2017. Testing performed by: [address] [address] Lymphocyte pct 33.1 % [facility] Comment: Interpretive Data Percent cell count reference ranges are not reported, since discordance with absolute values may lead to misinterpretation of CBC data. Current Interpretive Data was last revised on 2017. Testing performed by: [address] [address] Monocyte pct 11.7 % [facility] Comment: Interpretive Data Percent cell count reference ranges are not reported, since discordance with absolute values may lead to misinterpretation of CBC data. Current Interpretive Data was last revised on 2017. Testing performed by: [address] [address] Eosinophil pct 1.1 % [facility] Comment: Interpretive Data Percent cell count reference ranges are not reported, since discordance with absolute values may lead to misinterpretation of CBC data. Current Interpretive Data was last revised on 2017. Testing performed by: [address] [address] Basophil pct 0.6 % [facility] Comment: Interpretive Data Percent cell count reference ranges are not reported, since discordance with absolute values may lead to misinterpretation of CBC data. Current Interpretive Data was last revised on 2017. Testing performed by: [address] [address] Blood 10/08/2024 7:25 PM CDT 10/08/2024 7:29 PM CDT Lilliana LAWTON LAB BLOOD ORDERABLES Final Result Performing Organization Address City/[facility] Co de Phone Number NEEL [address] [place] [address] * Lipase (10/08/2024 7:25 PM CDT) Pathologist [facility] Lipase 42 10 - 99 Units/L Comment:Testing performed by : [address] [address] Blood Venous blood specimen / Unknown 10/08/2024 7:25 PM CDT 10/08/2024 7:29 PM CDT Lilliana LAWTON LAB BLOOD ORDERABLES Final Result Performing Organization Address [facility] de Phone Number NEEL [address] [address] * Comprehensive metabolic panel (10/08/2024 7:25 PM CDT) Pathologist [facility] Sodium 141 135 - 145 mmol/L Comment:Testing performed by : [address] [address] Potassium, pl 4.3 3.3 - 4.9 mmol/L NEEL Comment: Hemolyzed; Potassium value may be falsely elevated by as much as 1.0 mmol/L. Suggest redraw and reanalysis. Testing performed by: [address] [address] Chloride 105 97 - 110 mmol/L NEEL Comment:Testing performed by : [address] [address] CO2 22 22 - 32 mmol/L NEEL Comment:Testing performed by : [address] [address] Anion gap 14 2 - 15 mmol/L NEEL Comment:Testing performed by : [address] [address] BUN 7 6 - 25 mg/dL NEEL Comment:Testing performed by : [address] [place]., [address] Creatinine 1.02 0.80 - 1.30 mg/dL NEEL Comment:Testing performed by : [address] [address] Glucose 104 70 - 199 mg/dL [facility] Comment: Interpretive Data Fasting glucose >/= 126 [...] was last revised 2022. Testing performed by: [address] [address] Calcium 10.1 8.5 - 10.3 mg/dL NEEL Comment:Testing performed by : [address] [address] Bilirubin, total 0.3 0.1 - 1.2 mg/dL [facility] Comment:Testing performed by : [address] [address] Protein, pl 7.7 6.5 - 8.5 g/dL [facility] Comment:Testing performed by : [address] [address] Albumin 4.8 3.5 - 5.0 g/dL [facility] Comment:Testing performed by : [address] [address] Alk phos 88 40 - 130 Units/L [facility] Comment:Testing performed by : [address] [address] ALT 24 7 - 55 Units/L [facility] Comment:Testing performed by : [address] [address] AST 25 10 - 50 Units/L NEEL Comment: Hemolyzed; result may be falsely elevated Testing performed by: [address] [address] Blood 10/08/2024 7:25 PM CDT 10/08/2024 7:29 PM CDT Lilliana LAWTON LAB BLOOD ORDERABLES Final Result [facility] [address] [facility] Department [place] [address] * (ABNORMAL) CBC with auto differential (10/08/2024 7:25 PM CDT) WBC 9.46 3.80 - 9.90 K/cumm Comment:Testing performed by : [address] [address] Hgb 15.0 13.0 - 17.5 g/dL NEEL Comment:Testing performed by : [address], [address] Hct 44.6 38.9 - 50.3 % NEEL Comment:Testing performed by : [address] [address] Plt 321 150 - 400 K/cumm NEEL Comment:Testing performed by : [address] [address] MPV 10.0 9.1 - 12.3 fL NEEL Comment:Testing performed by : [address] [address] RBC 5.38 4.30 - 5.80 M/cumm NEEL Comment:Testing performed by : [address] [address] MCV 82.9 81.3 - 96.4 fL NEEL Comment:Testing performed by : [address] [address] MCH 27.9 27.1 - 33.3 pg NEEL Comment:Testing performed by : [address] [address] MCHC 33.6 32.3 - 35.7 g/dL NEEL Comment:Testing performed by : [address] [address] RDW CV 15.5(H) 11.1 - 14.9 % NEEL SMITH Comment:Testing performed by : [facility], [address] [place] [address]., [address] RDW SD 46.7 35.7 - 48.1 fL NEEL SMITH Comment:Testing performed by : [facility], [address] [place] [address]., [address] NRBC abs 0.00 0.00 - 0.01 K/cumm NEEL SMITH Comment:Testing performed by : [facility], [address] [place] [address]., [address] Blood Venous blood specimen / Unknown 10/08/2024 7:25 PM CDT 10/08/2024 7:29 PM CDT us Lilliana LAWTON LAB BLOOD ORDERABLES Final Result NEEL [address] [facility] Department [place] [address] documented in this encounter Visit Diagnoses Diagnosis Chronic abdominal pain- Primary Abdominal pain, unspecified site documented in this encounter Orders IV Count Last Ordered Date First Orde red Date SALINE LOCK IV 1 10/08/2024 documented in this encounter Care Teams Power Shovel Engineer Relationship Specialty Start Date End Date Td Lopez MD [address] [facility] [address] [place] [address] PCP - General Family Medicine 11/09/20 Angie Woodard MD [address] [place] [address] Consulting Physician Gastroenterology 07/17/21 Vimal Woodruff MD [address] [place] [address] Consulting Physician Gastroenterology 02/10/22 documented as of this encounter
--- OUTSIDE RECORDS SUMMARY | 2024-10-10 22:12 | XMS_ITS | Clinical Summary ---
Author Organization [facility] Address [address] [place] [address] Care Team Providers Care Cashier Wrapper Name Role Phone Td Lopez MD Primary Care Provider + Angie Woodard MD Unavailable [phone] Vimal Woodruff MD Unavailable [phone] Allergies Active Allergy Reactions Criticality Noted Date [...] 2 (two) times a day 118 mL Active ibuprofen (ADVIL,MOTRIN) 400 mg tablet Take 1 tablet (400 mg total) by mouth every 8 (eight) hours as needed for pain 20 tablet Active HYDROcodone-aceta minophen (NORCO) 5-325 mg per [...] a day for 5 days 10 tablet 025 2024 HYDROcodone-aceta minophen (NORCO) 5-325 mg per tabletIndications :Pain Take 1 tablet by mouth every 8 (eight) hours as needed for pain 12 tablet 025 2024 Discontinued(R eorder) pantoprazole DR (PROTONIX) 40 mg EC tabletIndications :Treatment of Non-Bleeding Gastric Disorder Take 1 tablet (40 mg total) by mouth daily 30 tablet 025 2024 Discontinued(R eorder) Active Problems Problem Noted Date Diagnosed Date Abdominal pain 10/03/2024 Acute pancreatitis, unspecif ied complication status, unspecified pancreatitis type 08/10/2024 Neck pain 03/25/2024 Assessment & Plan (03/25/2024 11:50 AM BOWSTRING MAKER): - suspect just muscle strain - will check xray - offered PT but pt refused. 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 Assessment & Plan (03/25/2024 11:49 AM BOWSTRING MAKER): - ref to derm for eval [...] pain Assessment & Plan (03/25/2024 11:49 AM BOWSTRING MAKER): - poor control - continue hyosciamine, famotidine, zofran - ref to GI for continued treatment Assessment & Plan (03/20/2023 11:07 AM BOWSTRING MAKER): - stable - continue current medication [...] prn Assessment & Plan (07/15/2019 11:44 AM BOWSTRING MAKER): - stable - continue bentyl and [...] medication Assessment & Plan (07/15/2019 11:44 AM BOWSTRING MAKER): - stable - continue creon Annual [...] able Assessment & Plan (07/15/2019 11:46 AM BOWSTRING MAKER): - encourage healthy diet, exercise - check labs - encouraged quitting smoking 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 Assessment & Plan (07/15/2019 11:37 AM BOWSTRING MAKER): - encouraged pt to quit smoking [...] GI Assessment & Plan (03/20/2023 11:07 AM BOWSTRING MAKER): - stable - continue current medication [...] 11/15/2023 10/06/2024 Nausea and vomiting 02/03/2023 03/18/20 23 Postprandial [...] 09/17/202209/08 Assessment & Plan (03/20/2023 11:08 AM BOWSTRING MAKER): - stable off meds - will [...] 09/25/2023 Assessment & Plan (03/26/2021 11:41 AM BOWSTRING MAKER): - stable today - continue current [...] lexapro Assessment & Plan (07/15/2019 11:38 AM BOWSTRING MAKER): - stable - continue current plan [...] medication Assessment & Plan (07/15/2019 11:38 AM BOWSTRING MAKER): - stable - continue omeprazole and carafate Viral illness 07/08/2019 02/12/2021 Assessment & Plan (07/09/2019 9:12 AM BOWSTRING MAKER): Medrol Dosepak as directed. Recommended Mucinex [...] PM CDT): - continue with crechristophe and derrick prn Other chronic pancreatitis 09/17/2018 1 05/26/2020 Overview (09/17/2018): Added automatically from request for surgery [id number] Assessment & Plan (02/12/2021 11:23 AM CDT): - encouraged pt to f/u with new GI - continue hyoscyamine Assessment & Plan (01/01/2021 12:10 PM CDT): - continue prn oxycodone for now - discussed need to wean off of this as this is not a viable senior living solution - will ref to pain management [...] medication Assessment & Plan (07/15/2019 11:36 AM BOWSTRING MAKER): - controlled - continue current plan [...] CDT - 10/08/2024 8:06 PM CDT Emergency [facility] Department [address] [place] [address] Chronic abdominal pain (Primary Dx) Discharge Disposition: Discharge to home or self care 10/07/2024 5:29 AM CDT - 10/07/2024 8:34 AM CDT Emergency [address] [address] Jose Francisco Harper DO Prograis, Shannon Smith, MD Abdominal pain (Primary Dx); Chronic pancreatitis, unspecified pancreatitis type (HCC) Discharge Disposition: Discharge to home or self care 10/06/2024 11:00 AM CDT Office Visit [facility] [address] [place] [phone] Td Lopez MD Abdominal pain (Primary Dx); Other chronic pancreatitis (HCC); Gastroesophageal reflux disease without esophagitis; Irritable bowel syndrome with both constipation and diarrhea 10/05/2024 DIPTI IP Outreach [facility] Accountable Care Organization [address] [place] [address] Lakshmi Garcia LPN 10/04/2024 Telephone [facility] [address] [place] [phone] Td Lopez MD schedule DIPTI appt 10/02/2024 9:53 PM CDT - 10/03/2024 11:39 AM CDT Hospital Encounter [address] [address] María Elena Calvo MD Medavaram, Atul, MD Sada, Kahmalia-Kalee Conceptia, MD Chowdhury, Farhanaz, MD Abdominal pain (Primary Dx); Acute pancreatitis, unspecified complication status, unspecified pancreatitis type; Pain, dental Discharge Disposition: Discharge to home or self care 09/30/2024 5:44 PM CDT - 09/30/2024 8:58 PM CDT Emergency [facility] [address] [place] [address] Radha Casas DO Abdominal pain (Primary Dx); Urinary tract infection with hematuria, site unspecified Discharge Disposition: Discharge to home or self care 08/23/2024 11:00 AM CDT Office Visit [facility] [address] [facility] [address] [place] [phone] dT Lopez MD Pain, dental (Primary Dx); Abdominal pain, epigastric 08/16/2024 3:42 AM CDT - 08/16/2024 6:26 AM CDT Emergency [facility] Emergency Department [address] [place] [address] Ashlie Burgess MD Abdominal pain, epigastric (Primary Dx) Discharge Disposition: Discharge to home or self care 08/15/2024 DIPTI IP Outreach [facility] Accountable Care Organization [address] [place] [address] Lakshmi Garcia LPN 08/13/2024 4:07 PM CDT - 08/13/2024 8:39 PM CDT Emergency [facility] Emergency Department [address] [place] [phone] Crista Bower MD Abdominal pain, generalized (Primary Dx) Discharge Disposition: Discharge to home or self care 08/11/2024 3:31 PM CDT Anesthesia Event [facility] [address] [place] [phone] Juan Daniel Freed MD 08/11/2024 3:15 PM CDT - 08/11/2024 3:45 PM CDT Surgery [facility] [address] [place] [phone] Georges Luna MD EGD 08/10/2024 2:56 AM CDT - 08/12/2024 12:59 PM CDT Hospital Encounter [address] [phone] Domenic Arias MD Shimotani, Dorian Genki, DO Willis, Devin Ray, MD Acute pancreatitis, unspecified complication status, unspecified pancreatitis type (Primary Dx); Abdominal pain, generalized Discharge Disposition: Discharge to home or self care 08/07/2024 2:23 AM CDT - 08/07/2024 5:31 AM CDT Emergency [facility] Emergency Department [address] [place] [phone] Justice Patel MD Abdominal pain, generalized (Primary Dx) Discharge Disposition: Discharge to home or self care 08/05/2024 Orders Only [facility] Health Information Management [address] [place] [address] Scanning, Provider 08/04/2024 DIPTI ED Outreach [facility] Care [address] [address] Alannah Baumann MA 08/03/2024 2:13 PM CDT - 08/03/2024 3:27 PM CDT Emergency [facility] Department [address] [place] [address] Freddy Yao DO Chronic abdominal pain (Primary Dx); Drug-seeking behavior Discharge Disposition: Discharge to home or self care 08/03/2024 DIPTI ED Outreach [facility] Care [address] [address] Alannah Baumann MA 08/02/2024 8:48 AM CDT - 08/02/2024 10:46 AM CDT Emergency [facility] Department [address] [place] [address] Chronic abdominal pain (Primary Dx) Discharge Disposition: Discharge to home or self care from Last 3 Months Immunizations Immunization Administration [...] drink = 0.6 oz pur e alcohol) [facility] Utilities Answer Date Recorded In the past 12 months has [employer], gas, oil, or water [employer] threatened to shut off services in your [...] attend chur ch or yarsani services? Never 08/11/2024 Do you belong to any clubs o r organizations such as jew groups, unions, fraternal or athletic groups, or [...] in a custodial (including now)? No 09/21/2023 PHQ-9 Answer Date [...] any time in the past 12 m [facility], were you homeless or living in a custodial (including now)? No 08/11/2024 Personal Safety Answer Date Recorded Have you ever been in or are you currently in a harmful physical or emotional relationship or is someone making you feel afraid or unsafe? Denies 10/08/2024 Sex and Gender Information Value Date Recorded Sex Assigned at Not on file Legal Sex Male 3:38 AM BOWSTRING MAKER Gender Identity Not on file Sexual [...] 10/08/2024 7:18 PM CDT Plan of Treatment Health Maintenance Due Date Last Done Comments Hepatitis C Screening 1981 Hepatitis B Screening 1999 Pneumococcal vaccine <65 (1 of 2 - PCV) 2000 Covid-19 Vaccine ( season) 2024 10/29/2021, 11/02/2020, 10/05/2020 Regular Well Visit/Exam 18-64 09/24/2024 09/25/2023, 09/17/2022, 02/29/2020 Depression Screening 08/23/2025 08/23/2024, 03/25/2024, 03/25/2024, Additional history exists DTaP/Tdap/Td Vaccine (2 - Td or Tdap) 10/30/2031 10/29/2021 Influenza Vaccine Completed 03/25/2024, , 02/08/2022, Additional history exists HPV Vaccines Aged Out No longer eligi ble based on patient's age to complete this topic Varicella Vaccines Discontinued Medical Devices Explanted Type Area Machine Scallop Cutter Device Identifier Shelf Expiration Date Model / Serial / Lot [employer] 6572 Connell Flexi-Stent 7fr 5cm Small Pigtail Flexible .035in Stent - [id number] Implanted:Qty: 1 on 09/18/2018 by Vimal Woodruff MD at [facility] Explanted:Qty: 1 on 09/20/[address] [facility] Stent N/A: Pancreas [employer] 06/10/2023 [id number] / / [id number] Conmed Gina [id number] [place] Viabil 10mm 8.5fr 6cm 200cm Fully Covered Self Expand Pull - [id number] - [id number] Implanted:Qty: 1 on 09/18/2018 by Vimal Woodruff MD at [facility] Explanted:Qty: 1 on 09/20/[address] [facility] Stent N/A: Bile Duct Conmed Gina 06/29/2021 [id number] / [id number] / [employer] Connell Flexi-Stent 7fr 9cm Small Pigtail Flexible .035in Stent 6575 - [id number] Implanted:Qty: 1 on 02/07/2022 by Vimal Woodruff MD at [facility] Explanted:Qty: 1 on 02/10/2022 by Vimal Woodruff MD at [facility] Stent N/A: Pancreas [employer] 09/07/2026 [id number] / / [id number] [employer] Gina Wallflex 10mm X 60mm Fully Covered Biliary [id number] - [id number] Implanted:Qty: 1 on 02/07/2022 by Vimal Woodruff MD at [facility] Explanted:Qty: 1 on 02/10/2022 by Vimal Woodruff MD at [facility] Stent N/A: Bile Duct [employer] Gina 11/04/2023 [id number] / / [id number] [employer] Connell Flexi-Stent 7fr 9cm Small Pigtail Flexible .035in Stent 6575 - [id number] Implanted:Qty: 1 on 09/21/2023 by Vimal Woodruff MD at [facility] Explanted:Qty: 1 on 09/23/2023 by Vimal Woodruff MD at [facility] Stent N/A: Pancreas [employer] Inc 03/11/2028 [id number] / / [id number] Description:Not present at b eginning of case. Self migrated out [employer] Gina Wallflex 10mm X 60mm Fully Covered Biliary [id number] - [id number] Implanted:Qty: 1 on 09/21/2023 by Vimal Woodruff MD at [facility] Explanted:Qty: 1 on 09/23/2023 by Vimal Woodruff MD at [facility] Stent N/A: Bile Duct [employer] Gina 08/02/2025 [id number] / / [id number] Procedures Procedure Name Priority Date/Time Associated Diagnosis [...] 10:58 AM CDT CBC WITHOUT DIFFERENTIAL Routine 10:58 AM CDT BASIC METABOLIC PANEL Routine [...] was last reviewed 2021. Testing performed by: [facility], [address] [place] [address]., [address] Blood 10/08/2024 7:25 PM CDT 10/08/2024 7:29 PM CDT us Lilliana LAWTON LAB BLOOD ORDERABLES Final Result [facility]INT[facility] [address] [facility] Department [place] [address] * (ABNORMAL) Differential, auto (10/08/2024 7:25 PM CDT) Pathologist [facility] Neutrophil abs 5.02 1.50 - 6.50 K/cumm Comment:Testing performed by : [address] [address] Imm gran abs 0.04 0.00 - 0.10 K/cumm NEEL Comment:Testing performed by : [address], [place]., [address] Lymphocyte abs 3.13 0.80 - 3.30 K/cumm [facility] Comment:Testing performed by : [address] [address] Monocyte abs 1.11(H) 0.20 - 0.80 K/cumm [facility] Comment:Testing performed by : [address] [address] Eosinophil abs 0.10 0.00 - 0.50 K/cumm [facility] Comment:Testing performed by : [address] [address] Basophil abs 0.06 0.00 - 0.10 K/cumm [facility] Comment:Testing performed by : [address] [address] Neutrophil pct 53.1 % [facility] Comment: Interpretive Data Percent cell count reference ranges are not reported, since discordance with absolute values may lead to misinterpretation of CBC data. Current Interpretive Data was last revised on 2017. Testing performed by: [address] [address] Imm gran pct 0.4 % [facility] Comment: Interpretive Data Percent cell count reference ranges are not reported, since discordance with absolute values may lead to misinterpretation of CBC data. Current Interpretive Data was last revised on 2017. Testing performed by: [address] [address] Lymphocyte pct 33.1 % [facility] Comment: Interpretive Data Percent cell count reference ranges are not reported, since discordance with absolute values may lead to misinterpretation of CBC data. Current Interpretive Data was last revised on 2017. Testing performed by: [address] [address] Monocyte pct 11.7 % NEEL Comment: Interpretive Data Percent cell count reference ranges are not reported, since discordance with absolute values may lead to misinterpretation of CBC data. Current Interpretive Data was last revised on 2017. Testing performed by: [address] [address] Eosinophil pct 1.1 % NEEL Comment: Interpretive Data Percent cell count reference ranges are not reported, since discordance with absolute values may lead to misinterpretation of CBC data. Current Interpretive Data was last revised on 2017. Testing performed by: [address] [address] Basophil pct 0.6 % NEEL Comment: Interpretive Data Percent cell count reference ranges are not reported, since discordance with absolute values may lead to misinterpretation of CBC data. Current Interpretive Data was last revised on 2017. Testing performed by: [address] [address] Blood 10/08/2024 7:25 PM CDT 10/08/2024 7:29 PM CDT Lilliana LAWTON LAB BLOOD ORDERABLES Final Result NEEL [address] [facility] Department [place] [address] * (ABNORMAL) CBC with auto differential (10/08/2024 7:25 PM CDT) WBC 9.46 3.80 - 9.90 K/cumm Comment:Testing performed by : [address] [address] Hgb 15.0 13.0 - 17.5 g/dL NEEL SMITH Comment:Testing performed by : [address] [address] Hct 44.6 38.9 - 50.3 % NEEL SMITH Comment:Testing performed by : [address] [address] Plt 321 150 - 400 K/cumm NEEL SMITH Comment:Testing performed by : [address] [address] MPV 10.0 9.1 - 12.3 fL NEEL SMITH Comment:Testing performed by : [address] [address] RBC 5.38 4.30 - 5.80 M/cumm NEEL SMITH Comment:Testing performed by : [address] [address] MCV 82.9 81.3 - 96.4 fL NEEL Comment:Testing performed by : [address] [address] MCH 27.9 27.1 - 33.3 pg NEEL SMITH Comment:Testing performed by : [address] [address] MCHC 33.6 32.3 - 35.7 g/dL NEEL Comment:Testing performed by : [address] [address] RDW CV 15.5(H) 11.1 - 14.9 % NEEL Comment:Testing performed by : [address] [address] RDW SD 46.7 35.7 - 48.1 fL NEEL Comment:Testing performed by : [address], [address] NRBC abs 0.00 0.00 - 0.01 K/cumm NEEL Comment:Testing performed by : [address] [address] Blood Venous blood specimen / Unknown 10/08/2024 7:25 PM CDT 10/08/2024 7:29 PM CDT us Lilliana LAWTON LAB BLOOD ORDERABLES Final Result NEEL 7253 [facility] Department of Laboratories [place], [place] [id number] * Lipase (10/08/2024 7:25 PM CDT) [facility] Lipase 42 10 - 99 Units/L Comment:Testing performed by : [address] [address] Blood Venous blood specimen / Unknown 10/08/2024 7:25 PM CDT 10/08/2024 7:29 PM CDT Lilliana LAWTON LAB BLOOD ORDERABLES Final Result NEEL 7[address] [facility] Department [place] [address] * Comprehensive metabolic panel (10/08/2024 7:25 PM CDT) Sodium 141 135 - 145 mmol/L Comment:Testing performed by : [address] [address] Potassium, pl 4.3 3.3 - 4.9 mmol/L NEEL Comment: Hemolyzed; Potassium value may be falsely elevated by as much as 1.0 mmol/L. Suggest redraw and reanalysis. Testing performed by: [address] [address] Chloride 105 97 - 110 mmol/L NEEL Comment:Testing performed by : [address] [address] CO2 22 22 - 32 mmol/L NEEL Comment:Testing performed by : [address] [address] Anion gap 14 2 - 15 mmol/L NEEL Comment:Testing performed by : [address] [address] BUN 7 6 - 25 mg/dL NEEL Comment:Testing performed by : [address] [address] Creatinine 1.02 0.80 - 1.30 mg/dL NEEL Comment:Testing performed by : [address] [address] Glucose 104 70 - 199 mg/dL NEEL Comment: Interpretive [...] was last revised 2022. Testing performed by: [address] [address] Calcium 10.1 8.5 - 10.3 mg/dL NEEL Comment:Testing performed by : [address] [address] Bilirubin, total 0.3 0.1 - 1.2 mg/dL NEEL Comment:Testing performed by : [address] [address] Protein, pl 7.7 6.5 - 8.5 g/dL NEEL Comment:Testing performed by : [address] [address] Albumin 4.8 3.5 - 5.0 g/dL NEEL Comment:Testing performed by : [address] [address] Alk phos 88 40 - 130 Units/L NEEL Comment:Testing performed by : [address] [address] ALT 24 7 - 55 Units/L NEEL Comment:Testing performed by : [address] [address] AST 25 10 - 50 Units/L NEEL Comment: Hemolyzed; result may be falsely elevated Testing performed by: [address] [address] Blood 10/08/2024 7:25 PM CDT 10/08/2024 7:29 PM CDT us Lilliana LAWTON LAB BLOOD ORDERABLES Final Result NEEL 9076 [facility] Department of Laboratories [place], [place] [id number] [phone] * CTA Chest Abdomen Pelvis (10/07/2024 6:41 [...] 7:18 AM - Electronically signed by Melissa ARNETT T: Report ID: [id number] Reading Location: [place] [address] Procedure Note Melissa Phoenix MD - 10/07/2024 [...] Melissa Phoenix M.D. 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 SN T: Report ID: [id number] Reading Location: [id number] Procedure Note Melissa Phoenix MD - 10/07/2024 EXAM DESCRIPTION: XR CHEST 1 VIEW REASON FOR STUDY: Abd pain, unspecified C/o upper L quad abd pain. 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 SN T: Report ID: [id number] Reading Location: [id number] Jose Francisco Harper DO IMG XR PROCEDURES Final Res ult * Troponin T high-sensitivity 2-hour (10/07/2024 6:05 AM CDT) Trop T hs <6 <=22 ng/L Comment: Interpretive Data For further hscTnT resources including the diagnostic algorithm and an aid in interpretation, copy and paste this link: https://nrl.testcatalog.org/show/hsTrop Current Interpretive Data last revised 2020. Trop T hs delta 0 ng/L NEEL Trop T hs interp Insignificant NEEL Blood 10/07/2024 6:05 AM CDT 10/07/2024 6:07 AM CDT Jose Francisco Harper DO LAB BLOOD ORDERABLES Final Result Performing Organization Address City/[facility]/ZIP Co de Phone Number NEEL 76[address] [facility] Department [place] [address] * ECG 12 lead (10/07/2024 4:11 AM CDT) Ventricular Rate EKG/Min 65 BPM [facility] Atrial Rate 65 BPM [facility] [place]-Interval (MSEC) 108 ms [facility] QRS-Interval (MSEC) 102 ms [facility] QT-Interval (MSEC) 388 ms [facility] QTc 403 ms [facility] P [place] 30 degrees [facility] R [place] 56 degrees [facility] T [place] 58 degrees [facility] Diagnosis Sinus rhythm with short [place] Otherwise normal ECG When compared with ECG of 27-JUN-2024 09:54, No significant change was found Confirmed by ASHLIE BERMEO M.D. ([id number]) on 10/07/2024 11:47:08 PM [facility] 10/07/2024 4:11 AM CDT 10/07/2024 11:47 PM CDT Jose Francisco Harper DO ECG ORDERABLES Final Resul t Performing Organization Address City/[facility] Co de Phone Number [facility] * Urinalysis reflex to microscopic and culture Urine (10/07/2024 4:06 AM CDT) Color, ur Yellow Yellow Clarity, ur Clear Clear [facility] Specific gravity, ur 1.013 1.003 - 1.030 [facility] pH, urine 5.5 [facility] Comment: Interpretive Data U rine pH is affected by diet, medications, systemic acid-base disturbances, and renal tubular function. pH may affect urinary stone formation. For example, urine pH below 6.0 may help reduce the tendency for calcium phosphate stones and pH greater than 6.0 may reduce the tendency for uric acid stone formation. Source: [facility] Current Interpretive Data was last revised on 2017 Protein, ur ql Negative Negative [facility] Glucose, ur ql Negative Negative [facility] Ketones, ur Negative Negative [facility] Bilirubin, ur Negative Negative [facility] Blood, ur Negative Negative [facility] Urobilinogen, ur <2.0 <2.0 mg/dL [facility] Nitrite, ur Negative Negative [facility] Leukocyte esterase, ur Negative Negative [facility] UA reflex comment Reflex conditions for microscopic UA and culture not met. [facility] Urine 10/07/2024 4:06 AM CDT 10/07/2024 4:10 AM CDT Jose Francisco Rubio [facility] LAB MICROBIOLOGY - GENERAL ORDERABLES Final Result Performing Organization Address [facility] de Phone Number [facility] [address] [facility] Department [place] [address] * Troponin T high-sensitivity series (baseline, 2hr, 4hr, 6hr) (10/07/2024 4:00 AM CDT) Trop T hs <6 <=22 ng/L Comment: Interpretive Data For further hscTnT resources including the diagnostic algorithm and an aid in interpretation, copy and paste this link: [email or web address].[email or web address]/[email or web address] Current Interpretive Data last revised 2020. Blood 10/07/2024 4:00 AM CDT 10/07/2024 4:02 AM CDT [facility]LES Final Result Performing Organization Address [facility]/State/ZIP Co de Phone Number NEEL [address] Department [place] [address] * eGFR (10/07/2024 4:00 AM CDT) [facility] eGFR 87 >=60 mL/min/1. 73 m2 Comment: [...] DO LAB BLOOD ORDERABLES Final Result NEEL [address] Department [place] [address] * (ABNORMAL) Differential, auto (10/07/2024 4:00 AM CDT) [facility] Neutrophil abs 5.81 1.50 - 6.50 K/cumm Imm gran abs 0.04 0.00 - 0.10 K/cumm [facility] Lymphocyte abs 3.73(H) 0.80 - 3.30 K/cumm [facility] Monocyte abs 1.14(H) 0.20 - 0.80 K/cumm [facility] Eosinophil abs 0.27 0.00 - 0.50 K/cumm [facility] Basophil abs 0.06 0.00 - 0.10 K/cumm [facility] Neutrophil pct 52.6 % [facility] Comment: Interpretive Data Percent cell count reference ranges are not reported, since discordance with absolute values may lead to misinterpretation of CBC data. Current Interpretive Data was last revised on 2017. Imm gran pct 0.4 % [facility] Comment: Interpretive Data Percent cell count reference ranges are not reported, since discordance with absolute values may lead to misinterpretation of CBC data. Current Interpretive Data was last revised on 2017. Lymphocyte pct 33.8 % [facility] Comment: Interpretive Data Percent cell count reference ranges are not reported, since discordance with absolute values may lead to misinterpretation of CBC data. Current Interpretive Data was last revised on 2017. Monocyte pct 10.3 % [facility] Comment: Interpretive Data Percent cell count reference ranges are not reported, since discordance with absolute values may lead to misinterpretation of CBC data. Current Interpretive Data was last revised on 2017. Eosinophil pct 2.4 % [facility] Comment: Interpretive Data Percent cell count reference ranges are not reported, since discordance with absolute values may lead to misinterpretation of CBC data. Current Interpretive Data was last revised on 2017. Basophil pct 0.5 % [facility] Comment: Interpretive Data Percent cell count reference ranges are not reported, since discordance with absolute values may lead to misinterpretation of CBC data. Current Interpretive Data was last revised on 2017. Blood 10/07/2024 4:00 AM CDT 10/07/2024 4:02 AM CDT Jose Francisco Harper DO LAB BLOOD ORDERABLES Final Result [facility] [address] [facility] Department [place] [address] * (ABNORMAL) CBC with auto differential (10/07/2024 4:00 AM CDT) WBC 11.05(H) 3.80 - 9.90 K/cumm Hgb 14.9 13.0 - 17.5 g/dL [facility] Hct 44.7 38.9 - 50.3 % [facility] Plt 281 150 - 400 K/cumm [facility] MPV 9.8 9.1 - 12.3 fL [facility] RBC 5.28 4.30 - 5.80 M/cumm [facility] MCV 84.7 81.3 - 96.4 fL [facility] MCH 28.2 27.1 - 33.3 pg [facility] MCHC 33.3 32.3 - 35.7 g/dL [facility] RDW CV 15.3(H) 11.1 - 14.9 % [facility] RDW SD 46.6 35.7 - 48.1 fL [facility] NRBC abs 0.00 0.00 - 0.01 K/cumm [facility] Blood Venous blood specimen / Unknown 10/07/2024 4:00 AM CDT 10/07/2024 4:02 AM CDT [facility]LO[facility] Final Result Performing Organization Address [facility] Co de Phone Number [address] [place] [address] * (ABNORMAL) Lipase (10/07/2024 4:00 AM CDT) [facility] Lipase 104(H) 10 - 99 Units/L Blood Venous blood specimen / Unknown 10/07/2024 4:00 AM CDT 10/07/2024 4:02 AM CDT [facility] BLOOD ORDERABLES Final Result Performing Organization Address [facility] Co de Phone Number [address] [place] [address] * Comprehensive metabolic panel (10/07/2024 4:00 AM CDT) [facility] Sodium 142 135 - 145 mmol/L Potassium, pl 4.1 3.3 - 4.9 mmol/L [facility] Chloride 107 97 - 110 mmol/L [facility] CO2 23 22 - 32 mmol/L [facility] Anion gap 12 2 - 15 mmol/L [facility] BUN 9 6 - 25 mg/dL [facility] Creatinine 1.08 0.80 - 1.30 mg/dL [facility] Glucose 90 70 - 199 mg/dL [facility] Comment: Interpretive Data Fasting glucose >/= [...] 2022. Calcium 9.4 8.5 - 10.3 mg/dL [facility] Bilirubin, total 0.2 0.1 - 1.2 mg/dL [facility] Protein, pl 7.1 6.5 - 8.5 g/dL [facility] Albumin 4.4 3.5 - 5.0 g/dL [facility] Alk phos 81 40 - 130 Units/L [facility] ALT 23 7 - 55 Units/L [facility] AST 24 10 - 50 Units/L [facility] Blood 10/07/2024 4:00 AM CDT 10/07/2024 4:02 AM CDT Jose Francisco Harper DO LAB BLOOD ORDERABLES Final Result Performing Organization Address City/State/[facility] Co de Phone Number [facility] [address] [facility] Department of Laboratories [place], [place] [id number] * eGFR (10/03/2024 7:08 AM CDT) eGFR >90 >=60 mL/min/1. 73 [...] MD LAB BLOOD ORDERABLES Final Res ult [place] [id number] [facility] Department [place] [address] * (ABNORMAL) CBC without differential (10/03/2024 7:08 AM CDT) WBC 13.42(H) 3.80 - 9.90 K/cumm Hgb 12.4(L) 13.0 - 17.5 g/dL [facility] Hct 37.9(L) 38.9 - 50.3 % [facility] Plt 226 150 - 400 K/cumm [facility] MPV 10.0 9.1 - 12.3 fL [facility] RBC 4.43 4.30 - 5.80 M/cumm [facility] MCV 85.6 81.3 - 96.4 fL [facility] MCH 28.0 27.1 - 33.3 pg [facility] MCHC 32.7 32.3 - 35.7 g/dL [facility] RDW CV 15.4(H) 11.1 - 14.9 % [facility] RDW SD 48.1 35.7 - 48.1 fL [facility] NRBC abs 0.00 0.00 - 0.01 K/cumm [facility] Blood 10/03/2024 7:08 AM CDT 10/03/2024 7:22 AM CDT us Fred Toth MD LAB BLOOD ORDERABLES Final Res ult Performing Organization Address City/[facility]/ZIP Co de Phone Number NEEL [address] [place] [address] * Lipase (10/03/2024 7:08 AM CDT) Pathologist [facility] Lipase 55 10 - 99 Units/L Blood 10/03/2024 7:08 AM CDT 10/03/2024 7:22 AM CDT Fred Navneet TUCKER LAB BLOOD ORDERABLES Final Res ult Performing Organization Address [facility] de Phone Number NEEL [address] [address] * Basic metabolic panel (10/03/2024 7:08 AM CDT) Pathologist [facility] Sodium 141 135 - 145 mmol/L Potassium, pl 4.4 3.3 - 4.9 mmol/L [facility] Chloride 107 97 - 110 mmol/L [facility] CO2 24 22 - 32 mmol/L [facility] Anion gap 10 2 - 15 mmol/L [facility] BUN 9 6 - 25 mg/dL [facility] Creatinine 0.96 0.80 - 1.30 mg/dL [facility] Glucose 100 70 - 199 mg/dL [facility] Comment: Interpretive Data Fasting glucose >/= [...] 2022. Calcium 8.9 8.5 - 10.3 mg/dL [facility] Blood 10/03/2024 7:08 AM CDT 10/03/2024 7:22 AM CDT us Fred Toth MD LAB BLOOD ORDERABLES Final Res ult NEEL [address] [facility] Department [place] [address] * (ABNORMAL) Lipid panel (10/03/2024 1:54 AM CDT) Cholesterol 114 30 - 199 mg/dL Comment: [...] last revised on 2017. Testing performed by: [address] [address] Triglycerides 115 <=149 mg/dL NEEL Comment: Interpretive [...] last revised on 2017. Testing performed by: [address] [address] HDL 32(L) >=40 mg/dL NEEL Comment: Interpretive [...] last revised on 2017. Testing performed by: [address] [address] LDL, calculated 61 <=129 mg/dL NEEL Comment: [...] NCEP Expert Panel. Circulation 2004;110:227 3. Tremaine Griffin et al. ALPA Cardiol. 2019September 08;5(5):540-548. doi: 10.1001/jamacardio.2020.0013 Current Interpretive Data was last revised on 2023. Testing performed by: [address] [address] Non-HDL Cholesterol 82 mg/dL NEEL Comment: Interpretive Data Ages < [...] last revised on 2017. Testing performed by: [address] [address] Chol/HDL ratio 4 NEEL SMITH Comment:Testing performed by : [facility], [address] [place] [address], [place]., [address] Blood 10/03/2024 1:54 AM CDT 10/03/2024 2:00 AM CDT us Fred Toth MD LAB BLOOD ORDERABLES Final Res ult NEEL SMITH [address] [facility] Department [place] [address] * CT Abdomen Pelvis W Contrast (10/03/2024 [...] Aryan Jovel M.D. AR: GIOVANNA Report ID: [id number] Reading Location: [id number] Procedure Note Aryan Jovel MD - 10/03/2024 [...] Aryan Jovel M.D. AR: GIOVANNA Report ID: [id number] Reading Location: [place] [address] Fred Toth MD IM CT PROCEDURES Final Result * (ABNORMAL) Drugs of Abuse Screen, Urine with Reflex Confirmation (10/03/2024 12:51 AM CDT) Pathologist [facility] Amphetamine, ur Not Detected CutOff 500ng/mL Comment: Interpretive Data - Amphetamines: Samples containing greater than 500 ng/mL d-methamphetamine or other cross-reacting amphetamine compounds are reported as positive. Amphetamine immunoassays are subject to significant false positive rates due to cross-reactivity of non-amphetamine drugs. Confirmatory testing required for definitive results. Current Interpretive Data was last reviewed 2022. Testing performed by: [address] [address] Barbiturates, ur Not Detected CutOff 200ng/mL [facility] Comment: Interpretive Data - Barbiturates: Samples containing greater than 200 ng/mL secobarbital or other cross-reacting barbiturate compounds are reported as positive. False positive and false negative results are possible. Confirmatory testing required for definitive results. Current Interpretive Data was last reviewed 2022. Testing performed by: [address] [address] Benzodiazepines, ur Not Detected CutOff 100ng/mL [facility] Comment: Interpretive Data - Benzodiazepines: Samples containing greater than 100 ng/mL nordiazepam or other cross-reacting compounds are reported as positive. False positive and false negative results are possible. Confirmatory testing required for definitive results. Current Interpretive Data was last reviewed 2022. Testing performed by: [address] [address] Cannabinoids, ur Screen Positive, presumptive (A) CutOff 50 ng/mL [facility] Comment: Interpretive Data - Cannabinoids: Samples containing greater than 50 ng/mL delta-9 THC -COOH or other cross- reacting compounds are reported as positive. False positive and false negative results are possible. Confirmatory testing required for definitive results. Current Interpretive Data was last reviewed 2022. Testing performed by: [facility], [address] [place] [address]., [address] Cocaine, ur Not Detected CutOff 150ng/mL [facility] Comment: Interpretive Data - Cocaine: Samples containing greater than 150 ng/mL benzoylecgonine or other cross- reacting compounds are reported as positive. False positive and false negative results are possible. Confirmatory testing required for definitive results. Current Interpretive Data was last reviewed 2022. Testing performed by: [address], [place]., [address] Fentanyl, Ur Not Detected CutOff 5 ng/mL [facility] Comment: Interpretive Data - Fentanyl: Samples containing greater than 1 ng/mL fentanyl or other cross-reacting fentanyl compounds are reported as positive. False positive and false negative results are possible. Confirmatory testing required for definitive results. Current Interpretive Data was last reviewed 2022. Testing performed by: [facility], [address] [place] [address]., [address] Methadone, ur Not Detected CutOff 300ng/mL [facility] Comment: Interpretive Data - Methadone: Samples containing greater than 300 ng/mL d,l-methadone or other cross-reacting compounds are reported as positive. False positive and false negative results are possible. Confirmatory testing required for definitive results. Current Interpretive Data was last reviewed 2022. Testing performed by: [address] [address] Opiates, ur Not Detected CutOff 300ng/mL [facility] Comment: Interpretive Data - Opiates: Samples containing greater than 300 ng/mL morphine or other cross-reacting compounds are reported as positive. False positive and false negative results are possible. Confirmatory testing required for definitive results. Current Interpretive Data was last reviewed 2022. Testing performed by: [facility], [address] [place] [address]., [address] Oxycodone, ur Not Detected CutOff 100ng/mL [facility] Comment: Interpretive Data - Oxycodone: Samples containing greater than 100 ng/mL oxycodone or other cross-reacting compounds are reported as positive. False positive and false negative results are possible. Confirmatory testing required for definitive results. Current Interpretive Data was last reviewed 2022. Testing performed by: [address] [address] Phencyclidine, ur Not Detected CutOff 25 ng/mL NEEL SMITH Comment: Interpretive Data - Phencyclidine: Samples containing greater than 25 ng/mL phencyclidine or other cross-reacting compounds are reported as positive. False positive and false negative results are possible. Confirmatory testing required for definitive results. Current Interpretive Data was last reviewed 2022. Testing performed by: [address], [place]., [address] Urine Creatinine 102 mg/dL NEEL SMITH Comment: Interpretive Data Urine Creatinine: < 10 mg/dL is extremely dilute = or > 10 but < 20 mg/dL is dilute = or > 20 mg/dL is normal Current Interpretive Data was last revised on 2017. Testing performed by: [address] [address] Urine 10/03/2024 12:5 1 AM CDT 10/03/2024 12:53 AM CDT Narrative NEEL - 10/03/2024 1:16 AM CDT Drug of Abuse screening is performed by immunoassay for medical purposes only. This is not to be used for Pain Management purposes. If Detected, confirmation testing will be performed for Amphetamines, Cocaine, Fentanyl, Methadone, Opiates, Oxycodone or Phencyclidine. Fred Toth MD LAB URINE ORDERABLES Final Res ult NEEL [address] [facility] Department [place] [address] * Urinalysis reflex to microscopic and culture Urine (10/02/2024 10:09 PM CDT) Color, ur Yellow Yellow Comment:Testing performed by : [address] [address] Clarity, ur Clear Clear NEEL SMITH Comment:Testing performed by : [address] [address] Specific gravity, ur 1.011 1.003 - 1.030 NEEL Comment:Testing performed by : [address], [place]., [address] pH, urine 6.0 NEEL Comment: Interpretive Data U rine pH is affected by diet, medications, systemic acid-base disturbances, and renal tubular function. pH may affect urinary stone formation. For example, urine pH below 6.0 may help reduce the tendency for calcium phosphate stones and pH greater than 6.0 may reduce the tendency for uric acid stone formation. Source: [facility] [employer] Current Interpretive Data was last revised on 2017 Testing performed by: [address] [address] Protein, ur ql Negative Negative NEEL Comment:Testing performed by : [address], [place]., [address] Glucose, ur ql Negative Negative NEEL Comment:Testing performed by : [address] [address] Ketones, ur Negative Negative NEEL Comment:Testing performed by : [address], [place]., [address] Bilirubin, ur Negative Negative NEEL Comment:Testing performed by : [address], [place]., [address] Blood, ur Negative Negative NEEL Comment:Testing performed by : [address], [place]., [address] Urobilinogen, ur <2.0 <2.0 mg/dL NEEL Comment:Testing performed by : [address] [address] Nitrite, ur Negative Negative NEEL Comment:Testing performed by : [address], [place]., [address] Leukocyte esterase, ur Negative Negative NEEL Comment:Testing performed by : [address] [address] UA reflex comment Reflex conditions for microscopic UA and culture not met. NEEL Comment:Testing performed by : [address], [place]., [address] Urine 10/02/2024 10:0 9 PM CDT 10/02/2024 10:11 PM CDT María Elena Calvo MD LAB MICROBIOLOGY - GENERA L ORDERABLES Final Result Performing Organization Address [facility] Co nd Phone Number NEEL [address] Department [place] [address] * eGFR (10/02/2024 9:51 PM CDT) eGFR [...] was last reviewed 2021. Testing performed by: [facility], [address] [place] [address]., [address] Blood 10/02/2024 9:51 PM CDT 10/02/2024 9:57 PM CDT María Elena Calvo MD LAB BLOOD ORDERABLES Renee l Result Performing Organization Address [facility] Co de Phone Number NEEL [address] Department [place] [address] * (ABNORMAL) Differential, auto (10/02/2024 9:51 PM CDT) Neutrophil abs 12.91(H) 1.50 - 6.50 K/cumm Comment:Testing performed by : [address], [place]., [address] Imm gran abs 0.10 0.00 - 0.10 K/cumm NEEL Comment:Testing performed by : [address], [place]., [address] Lymphocyte abs 1.91 0.80 - 3.30 K/cumm NEEL Comment:Testing performed by : [address], [place]., [address] Monocyte abs 1.44(H) 0.20 - 0.80 K/cumm [facility] Comment:Testing performed by : [address], [place]., [address] Eosinophil abs 0.14 0.00 - 0.50 K/cumm NEEL Comment:Testing performed by : [address], [place]., [address] Basophil abs 0.07 0.00 - 0.10 K/cumm [facility] Comment:Testing performed by : [address] [address] Neutrophil pct 78.0 % [facility] Comment: Interpretive Data Percent cell count reference ranges are not reported, since discordance with absolute values may lead to misinterpretation of CBC data. Current Interpretive Data was last revised on 2017. Testing performed by: [address] [address] Imm gran pct 0.6 % [facility] Comment: Interpretive Data Percent cell count reference ranges are not reported, since discordance with absolute values may lead to misinterpretation of CBC data. Current Interpretive Data was last revised on 2017. Testing performed by: [address] [address] Lymphocyte pct 11.5 % [facility] Comment: Interpretive Data Percent cell count reference ranges are not reported, since discordance with absolute values may lead to misinterpretation of CBC data. Current Interpretive Data was last revised on 2017. Testing performed by: [address] [address] Monocyte pct 8.7 % [facility] Comment: Interpretive Data Percent cell count reference ranges are not reported, since discordance with absolute values may lead to misinterpretation of CBC data. Current Interpretive Data was last revised on 2017. Testing performed by: [address] [address] Eosinophil pct 0.8 % NEEL Comment: Interpretive Data Percent cell count reference ranges are not reported, since discordance with absolute values may lead to misinterpretation of CBC data. Current Interpretive Data was last revised on 2017. Testing performed by: [address] [address] Basophil pct 0.4 % NEEL Comment: Interpretive Data Percent cell count reference ranges are not reported, since discordance with absolute values may lead to misinterpretation of CBC data. Current Interpretive Data was last revised on 2017. Testing performed by: [address] [address] Blood 10/02/2024 9:5 1 PM CDT 10/02/2024 9:57 PM CDT us aMría Elena Calvo MD LAB BLOOD ORDERABLES Renee l Result [facility] [address] [facility] Department [place] [address] * (ABNORMAL) CBC with auto differential (10/02/2024 9:51 PM CDT) WBC 16.57(H) 3.80 - 9.90 K/cumm Comment:Testing performed by : [address] [address] Hgb 13.9 13.0 - 17.5 g/dL NEEL Comment:Testing performed by : [address] [address] Hct 41.0 38.9 - 50.3 % NEEL Comment:Testing performed by : [address] [address] Plt 281 150 - 400 K/cumm NEEL Comment:Testing performed by : [address] [address] MPV 9.9 9.1 - 12.3 fL NEEL SMITH Comment:Testing performed by : [address] [address] RBC 4.94 4.30 - 5.80 M/cumm NEEL SMTIH Comment:Testing performed by : [address] [address] MCV 83.0 81.3 - 96.4 fL NEEL SMITH Comment:Testing performed by : [address] [address] MCH 28.1 27.1 - 33.3 pg NEEL SMITH Comment:Testing performed by : [address], [address] MCHC 33.9 32.3 - 35.7 g/dL NEEL SMITH Comment:Testing performed by : [address] [address] RDW CV 15.4(H) 11.1 - 14.9 % NEEL Comment:Testing performed by : [address], [address] RDW SD 46.5 35.7 - 48.1 fL NEEL Comment:Testing performed by : [address], [address] NRBC abs 0.00 0.00 - 0.01 K/cumm NEEL Comment:Testing performed by : [address] [address] Blood Venous blood specimen / Unknown 10/02/2024 9:51 PM CDT 10/02/2024 9:57 PM CDT us María Elena Calvo MD LAB BLOOD ORDERABLES Renee l Result NEEL [address] [facility] Department [place] [address] * (ABNORMAL) Lipase (10/02/2024 9:51 PM CDT) Lipase 444(H) 10 - 99 Units/L Comment:Testing performed by : [address] [place] [address] Blood Venous blood specimen / Unknown 10/02/2024 9:51 PM CDT 10/02/2024 9:57 PM CDT María Elena Calvo MD LAB BLOOD ORDERABLES Renee antunez Result [facility] [address] [facility] Department [place] [address] * Comprehensive metabolic panel (10/02/2024 9:51 PM CDT) Sodium 143 135 - 145 mmol/L Comment:Testing performed by : [address] [address] Potassium, pl 3.9 3.3 - 4.9 mmol/L NEEL Comment:Testing performed by : [address] [address] Chloride 107 97 - 110 mmol/L NEEL Comment:Testing performed by : [address] [address] CO2 22 22 - 32 mmol/L NEEL Comment:Testing performed by : [address] [address] Anion gap 14 2 - 15 mmol/L NEEL Comment:Testing performed by : [address] [address] BUN 7 6 - 25 mg/dL NEEL Comment:Testing performed by : [address] [address] Creatinine 1.08 0.80 - 1.30 mg/dL NEEL Comment:Testing performed by : [address] [address] Glucose 129 70 - 199 mg/dL NEEL [...] was last revised 2022. Testing performed by: [address] [address] Calcium 10.0 8.5 - 10.3 mg/dL NEEL Comment:Testing performed by : [address] [address] Bilirubin, total 0.3 0.1 - 1.2 mg/dL NEEL Comment:Testing performed by : [address] [address] Protein, pl 7.2 6.5 - 8.5 g/dL [facility] Comment:Testing performed by : [address] [address] Albumin 4.5 3.5 - 5.0 g/dL NEEL Comment:Testing performed by : [address] [address] Alk phos 84 40 - 130 Units/L [facility] Comment:Testing performed by : [address] [address] ALT 28 7 - 55 Units/L NEEL Comment:Testing performed by : [address] [address] AST 37 10 - 50 Units/L [facility] Comment:Testing performed by : [address] [address] Blood 10/02/2024 9:51 PM CDT 10/02/2024 9:57 PM CDT us María Elena Calvo MD LAB BLOOD ORDERABLES Renee antunez Result NEEL [address] [facility] Department of Laboratories [place], [place] [id number] * CT Abdomen Pelvis W Contrast (09/30/2024 [...] Esa Cao M.D. AG: GONZALES Report ID: [id number] Reading Location: [id number] Procedure Note Esa Cao MD - 09/30/2024 [...] Esa Cao M.D. AG: GONZALES Report ID: [id number] Reading Location: [place] [address] [facility] CT PROCEDURES Final Result * (ABNORMAL) Urinalysis reflex to microscopic and culture Urine (09/30/2024 5:55 PM CDT) Color, ur Yellow Yellow Comment:Testing performed by : [address] [address] Clarity, ur Clear Clear NEEL Comment:Testing performed by : [address] [address] Specific gravity, ur 1.035(H) 1.003 - 1.030 NEEL Comment:Testing performed by : [address] [address] pH, urine 6.0 NEEL Comment: Interpretive Data U rine pH is affected by diet, medications, systemic acid-base disturbances, and renal tubular function. pH may affect urinary stone formation. For example, urine pH below 6.0 may help reduce the tendency for calcium phosphate stones and pH greater than 6.0 may reduce the tendency for uric acid stone formation. Source: [employer] Current Interpretive Data was last revised on 2017 Testing performed by: [address], [place]., [address] Protein, ur ql 1+(A) Negative NEEL Comment:Testing performed by : [address], [place]., [address] Glucose, ur ql Negative Negative NEEL Comment:Testing performed by : [address], [place]., [address] Ketones, ur 1+(A) Negative NEEL Comment:Testing performed by : [address], [place]., [address] Bilirubin, ur Negative Negative NEEL Comment:Testing performed by : [address], [place]., [address] Blood, ur Negative Negative NEEL Comment:Testing performed by : [address], [place]., [address] Urobilinogen, ur 2.0(A) <2.0 mg/dL NEEL Comment:Testing performed by : [address], [place]., [address] Nitrite, ur Negative Negative NEEL Comment:Testing performed by : [address], [place]., [address] Leukocyte esterase, ur Negative Negative NEEL Comment:Testing performed by : [address], [place]., [address] UA reflex comment Reflex to microscopic UA will be performed. NEEL Comment:Testing performed by : [address] [address] Urine 09/30/2024 5:55 PM CDT 09/30/2024 5:57 PM CDT us Radha Casas DO LAB MICROBIOLOGY - GENERAL ORDE SAMEER Final Result NEEL SMITH [address] [facility] Department [place] [address] * (ABNORMAL) Urinalysis, microscopic only (09/30/2024 5:55 PM CDT) WBC, ur 6-10(A) 0 - 5 /HPF Comment:Testing performed by : [facility] [address] [place] [address]., [address] RBC, ur 3-5(A) 0 - 2 /HPF NEEL Comment:Testing performed by : [address] [address] Epithelial cells, squamous, ur 6-10(A) 0 - 5 /HPF NEEL Comment:Testing performed by : [address] [address] Mucous, ur Present(A) NEEL Comment:Testing performed by : [address] [address] Culture Reflex Comment Reflex conditions for urine culture (WBC >10) not met. NEEL Comment:Testing performed by : [address] [address] Urine 09/30/2024 5:55 PM CDT 09/30/2024 5:57 PM CDT Radha Casas DO LAB URINE ORDERABLES Final Resu lt NEEL [address] [facility] Department [place] [address] * eGFR (09/30/2024 4:01 PM CDT) eGFR [...] was last reviewed 2021. Testing performed by: [address] [address] Blood 09/30/2024 4:01 PM CDT 09/30/2024 4:06 PM CDT Radha Casas DO LAB BLOOD ORDERABLES Final Resu lt [facility] [address] [facility] Department [place] [address] * Differential, auto (09/30/2024 4:01 PM CDT) Neutrophil abs 5.11 1.50 - 6.50 K/cumm Comment:Testing performed by : [address] [address] Imm gran abs 0.04 0.00 - 0.10 K/cumm NEEL Comment:Testing performed by : [address] [address] Lymphocyte abs 1.62 0.80 - 3.30 K/cumm NEEL Comment:Testing performed by : [address] [address] Monocyte abs 0.77 0.20 - 0.80 K/cumm NEEL Comment:Testing performed by : [address] [address] Eosinophil abs 0.18 0.00 - 0.50 K/cumm NEEL Comment:Testing performed by : [address] [address] Basophil abs 0.05 0.00 - 0.10 K/cumm NEEL Comment:Testing performed by : [address] [address] Neutrophil pct 65.9 % NEEL Comment: Interpretive Data Percent cell count reference ranges are not reported, since discordance with absolute values may lead to misinterpretation of CBC data. Current Interpretive Data was last revised on 2017. Testing performed by: [address] [address] Imm gran pct 0.5 % [facility] Comment: Interpretive Data Percent cell count reference ranges are not reported, since discordance with absolute values may lead to misinterpretation of CBC data. Current Interpretive Data was last revised on 2017. Testing performed by: [address] [address] Lymphocyte pct 20.8 % [facility] Comment: Interpretive Data Percent cell count reference ranges are not reported, since discordance with absolute values may lead to misinterpretation of CBC data. Current Interpretive Data was last revised on 2017. Testing performed by: [address] [address] Monocyte pct 9.9 % [facility] Comment: Interpretive Data Percent cell count reference ranges are not reported, since discordance with absolute values may lead to misinterpretation of CBC data. Current Interpretive Data was last revised on 2017. Testing performed by: [address] [address] Eosinophil pct 2.3 % [facility] Comment: Interpretive Data Percent cell count reference ranges are not reported, since discordance with absolute values may lead to misinterpretation of CBC data. Current Interpretive Data was last revised on 2017. Testing performed by: [address] [address] Basophil pct 0.6 % [facility] Comment: Interpretive Data Percent cell count reference ranges are not reported, since discordance with absolute values may lead to misinterpretation of CBC data. Current Interpretive Data was last revised on 2017. Testing performed by: [address] [address] Blood 09/30/2024 4:01 PM CDT 09/30/2024 4:06 PM CDT us Radha Casas DO LAB BLOOD ORDERABLES Final Resu lt NEEL [address] [facility] Department [place] [address] * (ABNORMAL) CBC with auto differential (09/30/2024 4:01 PM CDT) [facility] Signature WBC 7.77 3.80 - 9.90 K/cumm Comment:Testing performed by : [address] [address] Hgb 14.5 13.0 - 17.5 g/dL NEEL Comment:Testing performed by : [address], [address] Hct 43.0 38.9 - 50.3 % NEEL Comment:Testing performed by : [address], [address] Plt 278 150 - 400 K/cumm NEEL Comment:Testing performed by : [address], [address] MPV 9.8 9.1 - 12.3 fL NEEL Comment:Testing performed by : [address], [address] RBC 5.18 4.30 - 5.80 M/cumm NEEL Comment:Testing performed by : [address], [address] MCV 83.0 81.3 - 96.4 fL NEEL Comment:Testing performed by : [address], [address] MCH 28.0 27.1 - 33.3 pg NEEL Comment:Testing performed by : [address], [address] MCHC 33.7 32.3 - 35.7 g/dL NEEL Comment:Testing performed by : [address], [address] RDW CV 15.3(H) 11.1 - 14.9 % NEEL Comment:Testing performed by : [address], [address] RDW SD 46.4 35.7 - 48.1 fL NEEL Comment:Testing performed by : [address], [address] NRBC abs 0.00 0.00 - 0.01 K/cumm NEEL Comment:Testing performed by : [address] [address] Blood Venous blood specimen / Unknown 09/30/2024 4:01 PM CDT 09/30/2024 4:06 PM CDT Radha Yessenia DO LAB BLOOD ORDERABLES Final Resu lt Performing Organization Address City/[facility]/ZIP Co de Phone Number [address] [place] [address] * Lipase (09/30/2024 4:01 PM CDT) Lipase 51 10 - 99 Units/L Comment:Testing performed by : [address] [address] Blood Venous blood specimen / Unknown 09/30/2024 4:01 PM CDT 09/30/2024 4:06 PM CDT Radha Casas LAB BLOOD ORDERABLES Final Resu lt Performing Organization Address [facility] Co de Phone Number [address] [address] * Comprehensive metabolic panel (09/30/2024 4:01 PM CDT) Pathologist [facility] Sodium 141 135 - 145 mmol/L Comment:Testing performed by : [address] [address] Potassium, pl 4.0 3.3 - 4.9 mmol/L NEEL Comment:Testing performed by : [address] [address] Chloride 106 97 - 110 mmol/L NEEL Comment:Testing performed by : [address] [address] CO2 24 22 - 32 mmol/L NEEL Comment:Testing performed by : [address] [address] Anion gap 11 2 - 15 mmol/L NEEL Comment:Testing performed by : [address] [address] BUN 9 6 - 25 mg/dL NEEL Comment:Testing performed by : [address] [address] Creatinine 1.00 0.80 - 1.30 mg/dL NEEL Comment:Testing performed by : [address] [address] Glucose 107 70 - 199 mg/dL NEEL [...] was last revised 2022. Testing performed by: [address] [address] Calcium 9.6 8.5 - 10.3 mg/dL NEEL Comment:Testing performed by : [address] [address] Bilirubin, total 0.4 0.1 - 1.2 mg/dL NEEL Comment:Testing performed by : [address] [address] Protein, pl 7.1 6.5 - 8.5 g/dL NEEL Comment:Testing performed by : [address] [address] Albumin 4.3 3.5 - 5.0 g/dL [facility] Comment:Testing performed by : [address] [address] Alk phos 87 40 - 130 Units/L NEEL Comment:Testing performed by : [address] [address] ALT 25 7 - 55 Units/L NEEL Comment:Testing performed by : [address] [address] AST 25 10 - 50 Units/L NEEL Comment:Testing performed by : [facility] [address] [place] [address], [place]., [address] Blood 09/30/2024 4:01 PM CDT 09/30/2024 4:06 PM CDT Radha Casas DO LAB BLOOD ORDERABLES Final Resu lt NEEL [address] [facility] Department [place] [address] * CT Abdomen Pelvis W Contrast (08/16/2024 4:01 AM CDT) Anatomical Region Laterality Modality Body N/A Computed Tomogra phy 08/16/2024 8:08 AM CDT Impressions 08/16/2024 8:36 AM CDT Markedly distended stomach with ingested contents without evidence of obstructing lesion. Preliminary results were given by the tele-radiologist refrigeration installer Dr. Olievra Dictated by: Mario Newsome MD PHD The [...] Preliminary results were given by the tele-radiologist refrigeration installer Dr. Olivera Dictated by: Mario Newsome MD [...] Burgess MD LAB BLOOD ORDERABLES Final Result [facility] [address] [facility]. Department [place] [address] * (ABNORMAL) Differential, auto (08/16/2024 3:42 AM CDT) Neutrophil abs 14.88(H) 1.50 - 6.50 K/cumm Imm gran abs 0.10 0.00 - 0.10 K/cumm [facility] Lymphocyte abs 1.94 0.80 - 3.30 K/cumm [facility] Monocyte abs 1.47(H) 0.20 - 0.80 K/cumm [facility] Eosinophil abs 0.16 0.00 - 0.50 K/cumm [facility] Basophil abs 0.09 0.00 - 0.10 K/cumm [facility] Neutrophil pct 79.8 % [facility] Comment: Interpretive Data Percent cell count reference ranges are not reported, since discordance with absolute values may lead to misinterpretation of CBC data. Current Interpretive Data was last revised on 2017. Imm gran pct 0.5 % [facility] Comment: Interpretive Data Percent cell count reference ranges are not reported, since discordance with absolute values may lead to misinterpretation of CBC data. Current Interpretive Data was last revised on 2017. Lymphocyte pct 10.4 % NEEL [facility] Comment: Interpretive Data Percent cell count reference ranges are not reported, since discordance with absolute values may lead to misinterpretation of CBC data. Current Interpretive Data was last revised on 2017. Monocyte pct 7.9 % NEEL [facility] Comment: Interpretive Data Percent cell count reference ranges are not reported, since discordance with absolute values may lead to misinterpretation of CBC data. Current Interpretive Data was last revised on 2017. Eosinophil pct 0.9 % [facility] Comment: Interpretive Data Percent cell count reference ranges are not reported, since discordance with absolute values may lead to misinterpretation of CBC data. Current Interpretive Data was last revised on 2017. Basophil pct 0.5 % [facility] Comment: Interpretive Data Percent cell count reference ranges are not reported, since discordance with absolute values may lead to misinterpretation of CBC data. Current Interpretive Data was last revised on 2017. Blood 08/16/2024 3:42 AM CDT 08/16/2024 4:15 AM CDT us Ashlie Burgess MD LAB BLOOD ORDERABLES Final Result [facility] [address] [facility]. [place] [address] * (ABNORMAL) CBC with auto differential (08/16/2024 3:42 AM CDT) WBC 18.64(H) 3.80 - 9.90 K/cumm Hgb 14.6 13.0 - 17.5 g/dL [facility] Hct 43.6 38.9 - 50.3 % [facility] Plt 325 150 - 400 K/cumm [facility] MPV 10.0 9.1 - 12.3 fL NEEL [facility] RBC 5.23 4.30 - 5.80 M/cumm [facility] MCV 83.4 81.3 - 96.4 fL [facility] MCH 27.9 27.1 - 33.3 pg NEEL [facility] MCHC 33.5 32.3 - 35.7 g/dL [facility] RDW CV 15.9(H) 11.1 - 14.9 % [facility] RDW SD 48.6(H) 35.7 - 48.[address] [facility] NRBC abs 0.00 0.00 - 0.01 K/cumm [facility] Blood Venous blood specimen / Unknown 08/16/2024 3:42 AM CDT 08/16/2024 4:15 AM CDT Ashlie Burgess MD LAB BLOOD ORDERABLES Final Result Performing Organization Address City/[facility]/ZIP Co de Phone Number [facility] [address] [facility] [employer] [place] [address] * Lipase (08/16/2024 3:42 AM CDT) [facility] Lipase 32 10 - 99 Units/L Blood Venous blood specimen / Unknown 08/16/2024 3:42 AM CDT 08/16/2024 4:15 AM CDT Ashlie Burgess MD LAB BLOOD ORDERABLES Final Result Performing Organization Address [facility] de Phone Number [facility] [address] [facility] [place] [employer] [place] [address] * Comprehensive metabolic panel (08/16/2024 3:42 AM CDT) Pathologist [facility] Sodium 139 135 - 145 mmol/L Potassium, pl 4.1 3.3 - 4.9 mmol/L [facility] Chloride 100 97 - 110 mmol/L [facility] CO2 24 22 - 32 mmol/L [facility] Anion gap 15 2 - 15 mmol/L [facility] BUN 10 6 - 25 mg/dL [facility] Creatinine 0.97 0.80 - 1.30 mg/dL [facility] Glucose 116 70 - 199 mg/dL [facility] Comment: Interpretive Data Fasting glucose >/= [...] Burgess MD LAB BLOOD ORDERABLES Final Result Performing Organization Address City/[facility]/ZIP Co de Phone Number [facility] [address] [facility]. Department Here@ [place] [address] * Sepsis Lactate w/ Reflex (08/13/2024 5:52 PM CDT) [facility] Sepsis Lactate 1.1 0.7 - 2.0 mmol/L Blood 08/13/2024 5:52 PM CDT 08/13/2024 5:58 PM CDT us Crista Bower MD LAB BLOOD ORDERABLES Final Result NEEL [facility] [address] [facility] [place] [employer] [place] [address] * eGFR (08/13/2024 4:29 PM CDT) [facility] eGFR >90 >=60 mL/min/1. 73 m2 [...] Bower MD LAB BLOOD ORDERABLES Final Result [facility] [address] [place] [address] * (ABNORMAL) Differential, auto (08/13/2024 4:29 PM CDT) [facility] Neutrophil abs 15.65(H) 1.50 - 6.50 K/cumm Imm gran abs 0.09 0.00 - 0.10 K/cumm [facility] Lymphocyte abs 1.38 0.80 - 3.30 K/cumm [facility] Monocyte abs 1.33(H) 0.20 - 0.80 K/cumm [facility] Eosinophil abs 0.09 0.00 - 0.50 K/cumm [facility] Basophil abs 0.05 0.00 - 0.10 K/cumm [facility] Neutrophil pct 84.1 % [facility] Comment: Interpretive Data Percent cell count reference ranges are not reported, since discordance with absolute values may lead to misinterpretation of CBC data. Current Interpretive Data was last revised on 2017. Imm gran pct 0.5 % [facility] Comment: Interpretive Data Percent cell count reference ranges are not reported, since discordance with absolute values may lead to misinterpretation of CBC data. Current Interpretive Data was last revised on 2017. Lymphocyte pct 7.4 % [facility] Comment: Interpretive Data Percent cell count reference ranges are not reported, since discordance with absolute values may lead to misinterpretation of CBC data. Current Interpretive Data was last revised on 2017. Monocyte pct 7.2 % [facility] Comment: Interpretive Data Percent cell count reference ranges are not reported, since discordance with absolute values may lead to misinterpretation of CBC data. Current Interpretive Data was last revised on 2017. Eosinophil pct 0.5 % [facility] Comment: Interpretive Data Percent cell count reference ranges are not reported, since discordance with absolute values may lead to misinterpretation of CBC data. Current Interpretive Data was last revised on 2017. Basophil pct 0.3 % [facility] Comment: Interpretive Data Percent cell count reference ranges are not reported, since discordance with absolute values may lead to misinterpretation of CBC data. Current Interpretive Data was last revised on 2017. Blood 08/13/2024 4:29 PM CDT 08/13/2024 4:38 PM CDT us Crista Bower MD LAB BLOOD ORDERABLES Final Result [facility] [address] [place] [address] * (ABNORMAL) CBC with auto differential (08/13/2024 4:29 PM CDT) WBC 18.59(H) 3.80 - 9.90 K/cumm Hgb 14.6 13.0 - 17.5 g/dL [facility] Hct 43.7 38.9 - 50.3 % [facility] Plt 335 150 - 400 K/cumm [facility] MPV 10.0 9.1 - 12.3 fL [facility] RBC 5.15 4.30 - 5.80 M/cumm [facility] MCV 84.9 81.3 - 96.4 fL [facility] MCH 28.3 27.1 - 33.3 pg [facility] MCHC 33.4 32.3 - 35.7 g/dL [facility] RDW CV 15.9(H) 11.1 - 14.9 % [facility] RDW SD 49.5(H) 35.7 - 48.1 fL [facility] NRBC abs 0.00 0.00 - 0.01 K/cumm [facility] Blood Venous blood specimen / Unknown 08/13/2024 4:29 PM CDT 08/13/2024 4:38 PM CDT us Crista Bower MD LAB BLOOD ORDERABLES Final Result Performing Organization Address [facility]/ZIP Co de Phone Number [facility] [address] [place] [address] * Lipase (08/13/2024 4:29 PM CDT) Pathologist [facility] Lipase 20 10 - 99 Units/L Blood Venous blood specimen / Unknown 08/13/2024 4:29 PM CDT 08/13/2024 4:38 PM CDT us Crista Bower MD LAB BLOOD ORDERABLES Final Result Performing Organization Address City/[facility]/ZIP Co de Phone Number [facility] [address] [place] [address] * (ABNORMAL) Comprehensive metabolic panel (08/13/2024 4:29 PM CDT) [facility] Sodium 138 135 - 145 mmol/L Potassium, pl 4.0 3.3 - 4.9 mmol/L [facility] Chloride 104 97 - 110 mmol/L [facility] CO2 21(L) 22 - 32 mmol/L [facility] Anion gap 13 2 - 15 mmol/L [facility] BUN 8 6 - 25 mg/dL [facility] Creatinine 0.91 0.80 - 1.30 mg/dL [facility] Glucose 118 70 - 199 mg/dL [facility] Comment: Interpretive Data Fasting glucose >/= [...] 2022. Calcium 9.3 8.5 - 10.3 mg/dL [facility] Bilirubin, total 0.4 0.1 - 1.2 mg/dL [facility] Protein, pl 7.2 6.5 - 8.5 g/dL [facility] Albumin 4.1 3.5 - 5.0 g/dL [facility] Alk phos 86 40 - 130 Units/L [facility] ALT 25 7 - 55 Units/L [facility] AST 22 10 - 50 Units/L [facility] Blood 08/13/2024 4:29 PM CDT 08/13/2024 4:38 PM CDT us Crista Bower MD LAB BLOOD ORDERABLES Final Result [facility] [address] [place] [address] * eGFR (08/12/2024 10:58 AM CDT) eGFR [...] MD LAB BLOOD ORDERABLES Final R esult [facility] [address] [place] [address] * (ABNORMAL) CBC without differential (08/12/2024 10:58 AM CDT) WBC 7.15 3.80 - 9.90 K/cumm Hgb 13.4 13.0 - 17.5 g/dL [facility] Hct 41.3 38.9 - 50.3 % [facility] Plt 301 150 - 400 K/cumm [facility] MPV 10.1 9.1 - 12.3 fL [facility] RBC 4.81 4.30 - 5.80 M/cumm [facility] MCV 85.9 81.3 - 96.4 fL [facility] MCH 27.9 27.1 - 33.3 pg [facility] MCHC 32.4 32.3 - 35.7 g/dL [facility] RDW CV 16.1(H) 11.1 - 14.9 % [facility] RDW SD 50.2(H) 35.7 - 48.1 fL [facility] NRBC abs 0.00 0.00 - 0.01 K/cumm [facility] Blood 08/12/2024 10:5 8 AM CDT 08/12/2024 11:33 AM CDT Reinaldo Avitia MD LAB BLOOD ORDERABLES Final R esult Performing Organization Address City/[facility]/ZIP Co de Phone Number [facility] [address] [place] [address] * (ABNORMAL) Basic metabolic panel (08/12/2024 10:58 AM CDT) Sodium 139 135 - 145 mmol/L Potassium, pl 4.3 3.3 - 4.9 mmol/L [facility] Chloride 105 97 - 110 mmol/L [facility] CO2 21(L) 22 - 32 mmol/L [facility] Anion gap 13 2 - 15 mmol/L [facility] BUN 6 6 - 25 mg/dL [facility] Creatinine 0.92 0.80 - 1.30 mg/dL [facility] Glucose 130 70 - 199 mg/dL [facility] Comment: Interpretive Data Fasting glucose >/= [...] 2022. Calcium 8.7 8.5 - 10.3 mg/dL [facility] Blood 08/12/2024 10:5 8 AM CDT 08/12/2024 11:33 AM CDT Reinaldo Avitia MD LAB BLOOD ORDERABLES Final R esult Performing Organization Address City/[facility]/ZIP Co de Phone Number [facility] [address] Department Here@ [place] [address] * EGD (08/11/2024 3:25 PM CDT) Anatomical Region Laterality Modality Other Narrative Procedure Note Georges Luna MD - 08/11/2024 3:25 PM CDT ENDOSCOPY LAB Patient Name: Donovan Bailey Procedure Date: 08/11/2024 3:25 PM Admit Type: Inpatient Room: [facility] Date of : 1980 Instrument Name: [id number] [...] 08/11/2024 3:25 PM Scope In: Scope Out: Georges Luna MD ENDOSCOPY PROCEDURE S Final [...] DO LAB BLOOD ORDERABLES F inal Result [facility] [address] [place] [address] * (ABNORMAL) Differential, auto (08/11/2024 6:15 AM CDT) Neutrophil abs 2.30 1.50 - 6.50 K/cumm Imm gran abs 0.01 0.00 - 0.10 K/cumm [facility] Lymphocyte abs 3.06 0.80 - 3.30 K/cumm [facility] Monocyte abs 0.99(H) 0.20 - 0.80 K/cumm [facility] Eosinophil abs 0.24 0.00 - 0.50 K/cumm [facility] Basophil abs 0.06 0.00 - 0.10 K/cumm [facility] Neutrophil pct 34.5 % [facility] Comment: Interpretive Data Percent cell count reference ranges are not reported, since discordance with absolute values may lead to misinterpretation of CBC data. Current Interpretive Data was last revised on 2017. Imm gran pct 0.2 % [facility] Comment: Interpretive Data Percent cell count reference ranges are not reported, since discordance with absolute values may lead to misinterpretation of CBC data. Current Interpretive Data was last revised on 2017. Lymphocyte pct 45.9 % [facility] Comment: Interpretive Data Percent cell count reference ranges are not reported, since discordance with absolute values may lead to misinterpretation of CBC data. Current Interpretive Data was last revised on 2017. Monocyte pct 14.9 % [facility] Comment: Interpretive Data Percent cell count reference ranges are not reported, since discordance with absolute values may lead to misinterpretation of CBC data. Current Interpretive Data was last revised on 2017. Eosinophil pct 3.6 % [facility] Comment: Interpretive Data Percent cell count reference ranges are not reported, since discordance with absolute values may lead to misinterpretation of CBC data. Current Interpretive Data was last revised on 2017. Basophil pct 0.9 % [facility] Comment: Interpretive Data Percent cell count reference ranges are not reported, since discordance with absolute values may lead to misinterpretation of CBC data. Current Interpretive Data was last revised on 2017. Blood 08/11/2024 6:15 AM CDT 08/11/2024 6:54 AM CDT Chris Villatoro LAB BLOOD ORDERABLES F inal Result Performing Organization Address [facility] Co de Phone Number [facility] [address] [place] [place] [address] * (ABNORMAL) CBC with auto differential (08/11/2024 6:15 AM CDT) [facility] WBC 6.66 3.80 - 9.90 K/cumm Hgb 12.2(L) 13.0 - 17.5 g/dL [facility] Hct 37.8(L) 38.9 - 50.3 % [facility] Plt 274 150 - 400 K/cumm [facility] MPV 10.2 9.1 - 12.3 fL [facility] RBC 4.38 4.30 - 5.80 M/cumm [facility] MCV 86.3 81.3 - 96.4 fL [facility] MCH 27.9 27.1 - 33.3 pg [facility] MCHC 32.3 32.3 - 35.7 g/dL [facility] RDW CV 16.3(H) 11.1 - 14.9 % [facility] RDW SD 51.3(H) 35.7 - 48.1 fL [facility] NRBC abs 0.00 0.00 - 0.01 K/cumm [facility] Blood 08/11/2024 6:15 AM CDT 08/11/2024 6:54 AM CDT Chris Villatoro DO LAB BLOOD ORDERABLES F inal Result Performing Organization Address [facility] Co de Phone Number [facility] [address] Department [place] [employer] [place] [address] * Magnesium (08/11/2024 6:15 AM CDT) Pathologist [facility] Magnesium 2.2 1.4 - 2.5 mg/dL Blood 08/11/2024 6:15 AM CDT 08/11/2024 6:53 AM CDT [facility] LAB BLOOD ORDERABLES F inal Result Performing Organization Address City/[facility]/ZIP Co de Phone Number [facility] [address] [place] [address] * Basic metabolic panel (08/11/2024 6:15 AM CDT) [facility] Sodium 139 135 - 145 mmol/L Potassium, pl 4.0 3.3 - 4.9 mmol/L [facility] Chloride 107 97 - 110 mmol/L [facility] CO2 24 22 - 32 mmol/L [facility] Anion gap 8 2 - 15 mmol/L [facility] BUN 6 6 - 25 mg/dL [facility] Creatinine 0.81 0.80 - 1.30 mg/dL [facility] Glucose 88 70 - 199 mg/dL [facility] Comment: Interpretive Data Fasting glucose >/= [...] 2022. Calcium 8.5 8.5 - 10.3 mg/dL [facility] Blood 08/11/2024 6:15 AM CDT 08/11/2024 6:53 AM CDT Chris Villatoro LAB BLOOD ORDERABLES F inal Result Performing Organization Address City/[facility]/ZIP Co de Phone Number [facility] [address] [place] [address] * CT Abdomen Pelvis W Contrast (08/10/2024 [...] as above. For the purposes of quality systems specialist, this study was initially interpreted by teleradiology. [...] as above. For the purposes of quality systems specialist, this study was initially interpreted by teleradiology. [...] MD LAB BLOOD ORDERABLES Final R esult [facility] [address] [place] [address] * (ABNORMAL) Differential, auto (08/10/2024 3:54 AM CDT) Neutrophil abs 18.28(H) 1.50 - 6.50 K/cumm Imm gran abs 0.10 0.00 - 0.10 K/cumm [facility] Lymphocyte abs 1.52 0.80 - 3.30 K/cumm [facility] Monocyte abs 1.50(H) 0.20 - 0.80 K/cumm [facility] Eosinophil abs 0.12 0.00 - 0.50 K/cumm [facility] Basophil abs 0.08 0.00 - 0.10 K/cumm [facility] Neutrophil pct 84.6 % [facility] Comment: Interpretive Data Percent cell count reference ranges are not reported, since discordance with absolute values may lead to misinterpretation of CBC data. Current Interpretive Data was last revised on 2017. Imm gran pct 0.5 % [facility] Comment: Interpretive Data Percent cell count reference ranges are not reported, since discordance with absolute values may lead to misinterpretation of CBC data. Current Interpretive Data was last revised on 2017. Lymphocyte pct 7.0 % [facility] Comment: Interpretive Data Percent cell count reference ranges are not reported, since discordance with absolute values may lead to misinterpretation of CBC data. Current Interpretive Data was last revised on 2017. Monocyte pct 6.9 % [facility] Comment: Interpretive Data Percent cell count reference ranges are not reported, since discordance with absolute values may lead to misinterpretation of CBC data. Current Interpretive Data was last revised on 2017. Eosinophil pct 0.6 % [facility] Comment: Interpretive Data Percent cell count reference ranges are not reported, since discordance with absolute values may lead to misinterpretation of CBC data. Current Interpretive Data was last revised on 2017. Basophil pct 0.4 % [facility] Comment: Interpretive Data Percent cell count reference ranges are not reported, since discordance with absolute values may lead to misinterpretation of CBC data. Current Interpretive Data was last revised on 2017. Blood 08/10/2024 3:54 AM CDT 08/10/2024 4:06 AM CDT us Domenic Arias MD LAB BLOOD ORDERABLES Final R esult [facility] [address] [place] [address] * (ABNORMAL) CBC with auto differential (08/10/2024 3:54 AM CDT) WBC 21.60(H) 3.80 - 9.90 K/cumm Hgb 14.0 13.0 - 17.5 g/dL [facility] Hct 43.0 38.9 - 50.3 % [facility] Plt 333 150 - 400 K/cumm [facility] MPV 10.0 9.1 - 12.3 fL [facility] RBC 5.07 4.30 - 5.80 M/cumm [facility] MCV 84.8 81.3 - 96.4 fL [facility] MCH 27.6 27.1 - 33.3 pg [facility] MCHC 32.6 32.3 - 35.7 g/dL [facility] RDW CV 16.4(H) 11.1 - 14.9 % [facility] RDW SD 50.1(H) 35.7 - 48.1 fL [facility] NRBC abs 0.00 0.00 - 0.01 K/cumm [facility] Blood Venous blood specimen / Unknown 08/10/2024 3:54 AM CDT 08/10/2024 4:06 AM CDT Domenic Arias MD LAB BLOOD ORDERABLES Final R esult [facility] [address] [employer] [place], [place] [id number] * Lipase (08/10/2024 3:54 AM CDT) Pathologist [facility] Lipase 27 10 - 99 Units/L Blood Venous blood specimen / Unknown 08/10/2024 3:54 AM CDT 08/10/2024 4:06 AM CDT Domenic Arias MD LAB BLOOD ORDERABLES Final R esult Performing Organization Address City/[facility] Co de Phone Number [facility] [address] [place] [address] * (ABNORMAL) Comprehensive metabolic panel (08/10/2024 3:54 AM CDT) Pathologist [facility] Sodium 132(L) 135 - 145 mmol/L Potassium, pl 3.9 3.3 - 4.9 mmol/L [facility] Chloride 96(L) 97 - 110 mmol/L [facility] CO2 20(L) 22 - 32 mmol/L [facility] Anion gap 16(H) 2 - 15 mmol/L [facility] BUN 7 6 - 25 mg/dL [facility] Creatinine 0.95 0.80 - 1.30 mg/dL [facility] Glucose 124 70 - 199 mg/dL [facility] Comment: Interpretive Data Fasting glucose >/= [...] 2022. Calcium 9.2 8.5 - 10.3 mg/dL [facility] Bilirubin, total 0.4 0.1 - 1.2 mg/dL [facility] Protein, pl 7.1 6.5 - 8.5 g/dL [facility] Albumin 4.5 3.5 - 5.0 g/dL [facility] Alk phos 81 40 - 130 Units/L [facility] ALT 23 7 - 55 Units/L [facility] AST 24 10 - 50 Units/L [facility] Comment:Slightly Hemolyzed S pecimen Blood 08/10/2024 3:54 AM CDT 08/10/2024 4:06 AM CDT us Domenic Arias MD LAB BLOOD ORDERABLES Final R esult [facility] [address] [place] [address] * eGFR (08/07/2024 3:20 AM CDT) eGFR >90 >=60 mL/min/1. 73 [...] MD LAB BLOOD ORDERABLES Fi nal Result [facility] [address] [place] [address] * (ABNORMAL) Differential, auto (08/07/2024 3:20 AM CDT) Neutrophil abs 8.4(H) 1.5 - 6.5 K/cumm Imm gran abs 0.0 0.0 - 0.1 K/cumm [facility] Lymphocyte abs 1.5 0.8 - 3.3 K/cumm [facility] Monocyte abs 1.3(H) 0.2 - 0.8 K/cumm [facility] Eosinophil abs 0.1 0.0 - 0.5 K/cumm [facility] Basophil abs 0.1 0.0 - 0.1 K/cumm [facility] Neutrophil pct 74.1 % [facility] Comment: Interpretive Data Percent cell count reference ranges are not reported, since discordance with absolute values may lead to misinterpretation of CBC data. Current Interpretive Data was last revised on 2017. Imm gran pct 0.4 % [facility] Comment: Interpretive Data Percent cell count reference ranges are not reported, since discordance with absolute values may lead to misinterpretation of CBC data. Current Interpretive Data was last revised on 2017. Lymphocyte pct 13.4 % [facility] Comment: Interpretive Data Percent cell count reference ranges are not reported, since discordance with absolute values may lead to misinterpretation of CBC data. Current Interpretive Data was last revised on 2017. Monocyte pct 11.3 % [facility] Comment: Interpretive Data Percent cell count reference ranges are not reported, since discordance with absolute values may lead to misinterpretation of CBC data. Current Interpretive Data was last revised on 2017. Eosinophil pct 0.4 % [facility] Comment: Interpretive Data Percent cell count reference ranges are not reported, since discordance with absolute values may lead to misinterpretation of CBC data. Current Interpretive Data was last revised on 2017. Basophil pct 0.4 % [facility] Comment: Interpretive Data Percent cell count reference ranges are not reported, since discordance with absolute values may lead to misinterpretation of CBC data. Current Interpretive Data was last revised on 2017. Blood 08/07/2024 3:20 AM CDT 08/07/2024 3:44 AM CDT us Justice Patel MD LAB BLOOD ORDERABLES Fi nal Result [facility] [address] [place] [address] * (ABNORMAL) CBC with auto differential (08/07/2024 3:20 AM CDT) WBC 11.3(H) 3.8 - 9.9 K/cumm Hgb 12.9(L) 13.0 - 17.5 g/dL [facility] Hct 39.6 38.9 - 50.3 % [facility] Plt 294 150 - 400 K/cumm [facility] MPV 9.8 9.1 - 12.3 fL [facility] RBC 4.63 4.30 - 5.80 M/cumm [facility] MCV 85.5 81.3 - 96.4 fL [facility] MCH 27.9 27.1 - 33.3 pg [facility] MCHC 32.6 32.3 - 35.7 g/dL [facility] RDW CV 16.4(H) 11.1 - 14.9 % [facility] RDW SD 51.0(H) 35.7 - 48.1 fL [facility] NRBC abs 0.00 0.00 - 0.01 K/cumm [facility] Blood 08/07/2024 3:20 AM CDT 08/07/2024 3:44 AM CDT Justice Patel MD LAB BLOOD ORDERABLES Fi nal Result Performing Organization Address City/[facility]/ZIP Co de Phone Number [facility] [address] [facility] [place] [employer] [place] [address] * Lipase (08/07/2024 3:20 AM CDT) Pathologist [facility] Lipase 40 10 - 99 Units/L Blood 08/07/2024 3:20 AM CDT 08/07/2024 3:45 AM CDT Justice Patel MD LAB BLOOD ORDERABLES Fi nal Result Performing Organization Address [facility] de Phone Number [facility] [address] [facility] [place] [employer] [place] [address] * (ABNORMAL) Comprehensive metabolic panel (08/07/2024 3:20 AM CDT) [facility] Sodium 138 135 - 145 mmol/L Potassium, pl 3.9 3.3 - 4.9 mmol/L [facility] Chloride 103 97 - 110 mmol/L [facility] CO2 21(L) 22 - 32 mmol/L [facility] Anion gap 14 2 - 15 mmol/L [facility] BUN 9 6 - 25 mg/dL [facility] Creatinine 0.92 0.80 - 1.30 mg/dL [facility] Glucose 107 70 - 199 mg/dL [facility] Comment: Interpretive Data Fasting glucose >/= [...] 2022. Calcium 8.8 8.5 - 10.3 mg/dL [facility] Bilirubin, total 0.6 0.1 - 1.2 mg/dL [facility] Protein, pl 6.3(L) 6.5 - 8.5 g/dL [facility] Albumin 4.1 3.5 - 5.0 g/dL [facility] Alk phos 74 40 - 130 Units/L [facility] ALT 23 7 - 55 Units/L [facility] AST 24 10 - 50 Units/L [facility] Comment:Slightly Hemolyzed S pecimen Blood 08/07/2024 3:20 AM CDT 08/07/2024 3:45 AM CDT Justice Patel MD LAB BLOOD ORDERABLES Fi nal Result [facility] [address] [place] [address] * SCAN - RADIOLOGY/IMAGING (08/05/2024) Anatomical Region Laterality Modality Other us Provider Scanning Final Result * Urinalysis reflex to microscopic and culture Urine (08/03/2024 1:50 PM CDT) Color, ur Yellow Yellow Comment:Testing performed by : [address] [address] Clarity, ur Clear Clear NEEL Comment:Testing performed by : [address] [address] Specific gravity, ur 1.009 1.003 - 1.030 NEEL Comment:Testing performed by : [address] [address] pH, urine 7.0 NEEL Comment: Interpretive Data U rine pH is affected by diet, medications, systemic acid-base disturbances, and renal tubular function. pH may affect urinary stone formation. For example, urine pH below 6.0 may help reduce the tendency for calcium phosphate stones and pH greater than 6.0 may reduce the tendency for uric acid stone formation. Source: [facility] Current Interpretive Data was last revised on 2017 Testing performed by: [facility], [address] [place] [address], [place]., [address] Protein, ur ql Negative Negative NEEL Comment:Testing performed by : [facility], [address] [place] [address], [place]., [address] Glucose, ur ql Negative Negative NEEL Comment:Testing performed by : [address], [place]., [address] Ketones, ur Negative Negative NEEL Comment:Testing performed by : [address], [place]., [address] Bilirubin, ur Negative Negative NEEL Comment:Testing performed by : [address], [place]., [address] Blood, ur Negative Negative NEEL Comment:Testing performed by : [address], [place]., [address] Urobilinogen, ur <2.0 <2.0 mg/dL NEEL Comment:Testing performed by : [address], [place]., [address] Nitrite, ur Negative Negative NEEL Comment:Testing performed by : [address], [place]., [address] Leukocyte esterase, ur Negative Negative NEEL Comment:Testing performed by : [address], [place]., [address] UA reflex comment Reflex conditions for microscopic UA and culture not met. NEEL Comment:Testing performed by : [address] [address] Urine 08/03/2024 1:50 PM CDT 08/03/2024 1:53 PM CDT us Freddy Yao DO LAB MICROBIOLOGY - GENERAL ORDERABLES Final Result [facility] SMITH [address] [facility] Department [place] [address] * eGFR (08/03/2024 1:45 PM [...] was last reviewed 2021. Testing performed by: [address] [address] Blood 08/03/2024 1:45 PM CDT 08/03/2024 1:53 PM CDT us Freddy Yao DO LAB BLOOD ORDERABLES Final Result NEEL [address] [facility] Department [place] [address] * (ABNORMAL) Differential, auto (08/03/2024 1:45 PM CDT) Neutrophil abs 7.8(H) 1.5 - 6.5 K/cumm Comment:Testing performed by : [address] [address] Imm gran abs 0.1 0.0 - 0.1 K/cumm [facility] SMITH Comment:Testing performed by : [address] [address] Lymphocyte abs 2.5 0.8 - 3.3 K/cumm [facility] SMITH Comment:Testing performed by : [address] [address] Monocyte abs 1.4(H) 0.2 - 0.8 K/cumm NEEL Comment:Testing performed by : [address] [address] Eosinophil abs 0.1 0.0 - 0.5 K/cumm NEEL Comment:Testing performed by : [address] [address] Basophil abs 0.1 0.0 - 0.1 K/cumm [facility] Comment:Testing performed by : [address] [address] Neutrophil pct 65.5 % [facility] Comment: Interpretive Data Percent cell count reference ranges are not reported, since discordance with absolute values may lead to misinterpretation of CBC data. Current Interpretive Data was last revised on 2017. Testing performed by: [address] [address] Imm gran pct 0.5 % [facility] Comment: Interpretive Data Percent cell count reference ranges are not reported, since discordance with absolute values may lead to misinterpretation of CBC data. Current Interpretive Data was last revised on 2017. Testing performed by: [address] [address] Lymphocyte pct 21.0 % [facility] Comment: Interpretive Data Percent cell count reference ranges are not reported, since discordance with absolute values may lead to misinterpretation of CBC data. Current Interpretive Data was last revised on 2017. Testing performed by: [address] [address] Monocyte pct 11.6 % [facility] Comment: Interpretive Data Percent cell count reference ranges are not reported, since discordance with absolute values may lead to misinterpretation of CBC data. Current Interpretive Data was last revised on 2017. Testing performed by: [address] [address] Eosinophil pct 0.8 % [facility] Comment: Interpretive Data Percent cell count reference ranges are not reported, since discordance with absolute values may lead to misinterpretation of CBC data. Current Interpretive Data was last revised on 2017. Testing performed by: [address] [address] Basophil pct 0.6 % NEEL Comment: Interpretive Data Percent cell count reference ranges are not reported, since discordance with absolute values may lead to misinterpretation of CBC data. Current Interpretive Data was last revised on 2017. Testing performed by: [address] [address] Blood 08/03/2024 1:45 PM CDT 08/03/2024 1:53 PM CDT us Freddy Yao DO LAB BLOOD ORDERABLES Final Result [facility] [address] [facility] Department [place] [address] * (ABNORMAL) CBC with auto differential (08/03/2024 1:45 PM CDT) WBC 11.9(H) 3.8 - 9.9 K/cumm Comment:Testing performed by : [address] [address] Hgb 13.3 13.0 - 17.5 g/dL NEEL Comment:Testing performed by : [address] [address] Hct 40.4 38.9 - 50.3 % NEEL Comment:Testing performed by : [address] [address] Plt 333 150 - 400 K/cumm NEEL Comment:Testing performed by : [address] [address] MPV 10.3 9.1 - 12.3 fL NEEL Comment:Testing performed by : [address] [address] RBC 4.81 4.30 - 5.80 M/cumm NEEL Comment:Testing performed by : [address] [address] MCV 84.0 81.3 - 96.4 fL NEEL Comment:Testing performed by : [address] [address] MCH 27.7 27.1 - 33.3 pg NEEL SMITH Comment:Testing performed by : [facility], [address] [place] [address]., [address] MCHC 32.9 32.3 - 35.7 g/dL [facility] SMITH Comment:Testing performed by : [address] [address] RDW CV 16.4(H) 11.1 - 14.9 % [facility] SMITH Comment:Testing performed by : [address] [address] RDW SD 50.0(H) 35.7 - 48.1 fL [facility] SMITH Comment:Testing performed by : [address] [address] NRBC abs 0.00 0.00 - 0.01 K/cumm [facility] SMITH Comment:Testing performed by : [address] [address] Blood Venous blood specimen / Unknown 08/03/2024 1:45 PM CDT 08/03/2024 1:53 PM CDT Freddy Yao DO LAB BLOOD ORDERABLES Final Result Performing Organization Address City/[facility]/ZIP Co de Phone Number [address] [place] [address] * Lipase (08/03/2024 1:45 PM CDT) Lipase 58 10 - 99 Units/L Comment:Testing performed by : [address], [address] Blood Venous blood specimen / Unknown 08/03/2024 1:45 PM CDT 08/03/2024 1:53 PM CDT Freddy Yao DO LAB BLOOD ORDERABLES Final Result [address] [address] * Comprehensive metabolic panel (08/03/2024 1:45 PM CDT) Sodium 142 135 - 145 mmol/L Comment:Testing performed by : [facility], [address] [place] [address], [place]., [address] Potassium, pl 3.9 3.3 - 4.9 mmol/L NEEL Comment:Testing performed by : [address], [place]., [address] Chloride 108 97 - 110 mmol/L NEEL Comment:Testing performed by : [address], [place]., [address] CO2 23 22 - 32 mmol/L NEEL Comment:Testing performed by : [address], [place]., [address] Anion gap 11 2 - 15 mmol/L NEEL Comment:Testing performed by : [address], [place]., [address] BUN 9 6 - 25 mg/dL NEEL Comment:Testing performed by : [address], [place]., [address] Creatinine 0.90 0.80 - 1.30 mg/dL NEEL Comment:Testing performed by : [address], [place]., [address] Glucose 107 70 - 199 mg/dL [facility] Comment: Interpretive Data Fasting glucose >/= 126 [...] was last revised 2022. Testing performed by: [address], [place]., [address] Calcium 9.4 8.5 - 10.3 mg/dL NEEL Comment:Testing performed by : [address], [place]., [address] Bilirubin, total 0.3 0.1 - 1.2 mg/dL NEEL Comment:Testing performed by : [address] [address] Protein, pl 7.1 6.5 - 8.5 g/dL NEEL SMITH Comment:Testing performed by : [address] [address] Albumin 4.3 3.5 - 5.0 g/dL NEEL SMITH Comment:Testing performed by : [address] [address] Alk phos 80 40 - 130 Units/L NEEL Comment:Testing performed by : [address] [address] ALT 23 7 - 55 Units/L NEEL Comment:Testing performed by : [address] [address] AST 32 10 - 50 Units/L NEEL Comment:Testing performed by : [address] [address] Blood 08/03/2024 1:45 PM CDT 08/03/2024 1:53 PM CDT Freddy Yao DO LAB BLOOD ORDERABLES Final Result Performing Organization Address City/State/[facility] Co de Phone Number NEEL 8077 [facility] Department [place] [address] * CT Abdomen Pelvis W Contrast (08/02/2024 [...] Priti Salmeron M.D. TW: JENNA Report ID: [id number] Reading Location: [id number] Procedure Note Priti Salmeron MD - 08/02/2024 [...] Priti Salmeron M.D. TW: JENNA Report ID: [id number] Reading Location: [id number] Vijaya LAWTON IMWilliam CT PROCEDURES Final Result * (ABNORMAL) Urinalysis reflex to microscopic and culture Urine (08/02/2024 8:48 AM CDT) Color, ur Yellow Yellow Comment:Testing performed by : [address] [address] Clarity, ur Clear Clear NEEL Comment:Testing performed by : [address] [address] Specific gravity, ur 1.025 1.003 - 1.030 NEEL Comment:Testing performed by : [address] [address] pH, urine 8.0 NEEL Comment: Interpretive Data U rine pH is affected by diet, medications, systemic acid-base disturbances, and renal tubular function. pH may affect urinary stone formation. For example, urine pH below 6.0 may help reduce the tendency for calcium phosphate stones and pH greater than 6.0 may reduce the tendency for uric acid stone formation. Source: [employer] Current Interpretive Data was last revised on 2017 Testing performed by: [address] [address] Protein, ur ql 1+(A) Negative NEEL Comment:Testing performed by : [address] [address] Glucose, ur ql Trace(A) Negative NEEL SMITH Comment:Testing performed by : [facility], [address] [place] [address], [place]., [address] Ketones, ur 2+(A) Negative NEEL SMITH Comment:Testing performed by : [facility], [address] [place] [address], [place]., [address] Bilirubin, ur Negative Negative NEEL Comment:Testing performed by : [address], [place]., [address] Blood, ur Negative Negative NEEL Comment:Testing performed by : [address], [place]., [address] Urobilinogen, ur <2.0 <2.0 mg/dL NEEL Comment:Testing performed by : [address], [place]., [address] Nitrite, ur Negative Negative NEEL Comment:Testing performed by : [address], [place]., [address] Leukocyte esterase, ur Negative Negative NEEL Comment:Testing performed by : [address], [place]., [address] UA reflex comment Reflex to microscopic UA will be performed. NEEL Comment:Testing performed by : [address], [place]., [address] Urine 08/02/2024 8:48 AM CDT 08/02/2024 8:54 AM CDT Freddy Yao DO LAB MICROBIOLOGY - GENERAL ORDERABLES Final Result NEEL 9834 [facility] Department [place] [address] * (ABNORMAL) Urinalysis, microscopic only (08/02/2024 8:48 AM CDT) WBC, ur 0-5 0 - 5 /HPF Comment:Testing performed by : [address], [place]., [address] RBC, ur 0-2 0 - 2 /HPF NEEL SMITH Comment:Testing performed by : [address], [place]., [address] Epithelial cells, squamous, ur 1-5 0 - 5 /HPF NEEL Comment:Testing performed by : [address] [address] Mucous, ur Present(A) NEEL SMITH Comment:Testing performed by : [address] [address] Culture Reflex Comment Reflex conditions for urine culture (WBC >10) not met. NEEL Comment:Testing performed by : [address] [address] Urine 08/02/2024 8:48 AM CDT 08/02/2024 8:54 AM CDT us Freddy Yao DO LAB URINE ORDERABLES Final Result NEEL 4507 [facility] Department [place] [address] * eGFR (08/02/2024 8:43 AM CDT) eGFR [...] was last reviewed 2021. Testing performed by: [address] [address] Blood 08/02/2024 8:43 AM CDT 08/02/2024 8:53 AM CDT us Freddy Yao DO LAB BLOOD ORDERABLES Final Result NEEL SMITH 7059 [facility] Department [place] [address] * (ABNORMAL) Differential, auto (08/02/2024 8:43 AM CDT) Neutrophil abs 12.1(H) 1.5 - 6.5 K/cumm Comment:Testing performed by : [address] [address] Imm gran abs 0.1 0.0 - 0.1 K/cumm NEEL Comment:Testing performed by : [address] [address] Lymphocyte abs 0.9 0.8 - 3.3 K/cumm NEEL Comment:Testing performed by : [address] [address] Monocyte abs 0.7 0.2 - 0.8 K/cumm NEEL Comment:Testing performed by : [address] [address] Eosinophil abs 0.0 0.0 - 0.5 K/cumm NEEL Comment:Testing performed by : [address] [address] Basophil abs 0.0 0.0 - 0.1 K/cumm NEEL Comment:Testing performed by : [address] [address] Neutrophil pct 88.2 % NEEL Comment: Interpretive Data Percent cell count reference ranges are not reported, since discordance with absolute values may lead to misinterpretation of CBC data. Current Interpretive Data was last revised on 2017. Testing performed by: [address] [address] Imm gran pct 0.4 % NEEL Comment: Interpretive Data Percent cell count reference ranges are not reported, since discordance with absolute values may lead to misinterpretation of CBC data. Current Interpretive Data was last revised on 2017. Testing performed by: [address] [address] Lymphocyte pct 6.6 % [facility] Comment: Interpretive Data Percent cell count reference ranges are not reported, since discordance with absolute values may lead to misinterpretation of CBC data. Current Interpretive Data was last revised on 2017. Testing performed by: [address] [address] Monocyte pct 4.7 % [facility] Comment: Interpretive Data Percent cell count reference ranges are not reported, since discordance with absolute values may lead to misinterpretation of CBC data. Current Interpretive Data was last revised on 2017. Testing performed by: [address] [address] Eosinophil pct 0.0 % [facility] Comment: Interpretive Data Percent cell count reference ranges are not reported, since discordance with absolute values may lead to misinterpretation of CBC data. Current Interpretive Data was last revised on 2017. Testing performed by: [address] [address] Basophil pct 0.1 % [facility] Comment: Interpretive Data Percent cell count reference ranges are not reported, since discordance with absolute values may lead to misinterpretation of CBC data. Current Interpretive Data was last revised on 2017. Testing performed by: [address] [address] Blood 08/02/2024 8:43 AM CDT 08/02/2024 8:53 AM CDT us Freddy Yao DO LAB BLOOD ORDERABLES Final Result NEEL 9740 [facility] Department [place] [address] * (ABNORMAL) CBC with auto differential (08/02/2024 8:43 AM CDT) WBC 13.7(H) 3.8 - 9.9 K/cumm Comment:Testing performed by : [address] [address] Hgb 12.9(L) 13.0 - 17.5 g/dL NEEL Comment:Testing performed by : [address] [address] Hct 38.3(L) 38.9 - 50.3 % NEEL Comment:Testing performed by : [address] [address] Plt 310 150 - 400 K/cumm NEEL Comment:Testing performed by : [address] [address] MPV 9.9 9.1 - 12.3 fL NEEL Comment:Testing performed by : [address], [address] RBC 4.63 4.30 - 5.80 M/cumm NEEL Comment:Testing performed by : [address] [address] MCV 82.7 81.3 - 96.4 fL NEEL Comment:Testing performed by : [address] [address] MCH 27.9 27.1 - 33.3 pg NEEL Comment:Testing performed by : [address] [address] MCHC 33.7 32.3 - 35.7 g/dL NEEL Comment:Testing performed by : [address] [address] RDW CV 15.9(H) 11.1 - 14.9 % NEEL Comment:Testing performed by : [address], [address] RDW SD 48.1 35.7 - 48.1 fL NEEL Comment:Testing performed by : [address] [address] NRBC abs 0.00 0.00 - 0.01 K/cumm NEEL Comment:Testing performed by : [address] [address] Blood Venous blood specimen / Unknown 08/02/2024 8:43 AM CDT 08/02/2024 8:53 AM CDT Freddy Yao DO LAB BLOOD ORDERABLES Final Result NEEL [address] [place] [address] * Lipase (08/02/2024 8:43 AM CDT) Lipase 28 10 - 99 Units/L Comment:Testing performed by : [address] [address] Blood Venous blood specimen / Unknown 08/02/2024 8:43 AM CDT 08/02/2024 8:53 AM CDT Freddy Yao DO LAB BLOOD ORDERABLES Final Result Performing Organization Address City/[facility] de Phone Number NEEL [address] [address] * Comprehensive metabolic panel (08/02/2024 8:43 AM CDT) Pathologist [facility] Sodium 143 135 - 145 mmol/L Comment:Testing performed by : [address] [address] Potassium, pl 3.9 3.3 - 4.9 mmol/L NEEL Comment:Testing performed by : [address] [address] Chloride 107 97 - 110 mmol/L NEEL Comment:Testing performed by : [address] [address] CO2 22 22 - 32 mmol/L NEEL Comment:Testing performed by : [address] [address] Anion gap 14 2 - 15 mmol/L NEEL Comment:Testing performed by : [address] [address] BUN 9 6 - 25 mg/dL NEEL Comment:Testing performed by : [address] [address] Creatinine 0.90 0.80 - 1.30 mg/dL NEEL Comment:Testing performed by : [address] [address] Glucose 161 70 - 199 mg/dL NEEL Comment: Interpretive [...] was last revised 2022. Testing performed by: [address] [address] Calcium 9.0 8.5 - 10.3 mg/dL NEEL Comment:Testing performed by : [address] [address] Bilirubin, total 0.5 0.1 - 1.2 mg/dL NEEL Comment:Testing performed by : [address] [address] Protein, pl 7.1 6.5 - 8.5 g/dL NEEL Comment:Testing performed by : [address] [address] Albumin 4.3 3.5 - 5.0 g/dL NEEL Comment:Testing performed by : [address] [address] Alk phos 81 40 - 130 Units/L NEEL Comment:Testing performed by : [address] [address] ALT 20 7 - 55 Units/L NEEL Comment:Testing performed by : [address] [address] AST 26 10 - 50 Units/L NEEL Comment:Testing performed by : [address] [address] Blood 08/02/2024 8:43 AM CDT 08/02/2024 8:53 AM CDT us Freddy Yao DO LAB BLOOD ORDERABLES Final Result NEEL MH 4500 [facility] Department [place] [address] from Last 3 Months Insurance [facility] Advance Directives For more information, please contact: [phone] * Full Code (Latest Code Status on [...] 8:00 AM 06/30/2022 5:06 PM Care Teams Cashier Wrapper Relationship Specialty Start Date End Date Td Lopez MD [address] [facility] [address] [place] [address] PCP - General Family Medicine 11/09/20 Angie Woodard MD [address] [facility] [address] [place] [address] Consulting Physician Gastroenterology 07/17/21 Vimal Woodruff MD [address] [address] Consulting Physician Gastroenterology 02/10/22
[2024-10-10 22:30] VITALS: BP 155/111; PULSE 97; RESP 20; TEMP 36.6; O2SAT 99
[2024-10-10 23:06] LABS: Basophils Absolute Auto 0.1 K/mm3 (0.0-0.1); Basophils Percent Auto 0.5 % (0.2-1.2); Eosinophils Absolute Auto 0.1 K/mm3 (0-0.3); Eosinophils Percent Auto 0.6 % (0-4.4); Hematocrit 44.8 % (42.0-52.0); Hemoglobin 14.4 g/dL (14.0-18.0); Immature Granulocyte Absolute 0.08 K/mm3 (0.00-0.031); Immature Granulocyte Percent A 0.5 % (0-0.5); Lymphocytes Absolute Auto 1.99 K/mm3 (0.9-3.2); Lymphocytes Percent Auto 12.1 % (18.3-44.2); Mean Corpuscular HGB Conc 32.1 g/dl (32-36); Mean Corpuscular Volume 87.2 fl (80-100); Mean Platelet Volume 10.1 fl (7.4-10.4); Monocytes Absolute Auto 1.2 K/mm3 (0.1-0.6); Monocytes Percent Auto 7.3 % (2.6-8.5); Platelet Count Result 301 k/mm3 (150-375); Red Blood Count 5.14 M/mm3 (4.6-6.20); Red Cell Distribution Width 15.3 % (11.5-14.5); White Blood Count 16.5 K/mm3 (4.5-10.0)
[2024-10-10 23:13] LABS: Alanine Aminotransferase 22 U/L (6-50); Albumin Level 4.8 g/dL (3.5-5.1); Alkaline Phosphatase 82 U/L (38-126); Anion Gap 11 mmol/L (4-12); Aspartate Amino Transferase 28 U/L (17-59); Bilirubin,Total 0.4 mg/dL (0.2-1.3); Blood Urea Nitrogen 6 mg/dL (9-20); Calcium 9.6 mg/dL (8.4-10.2); Carbon Dioxide 23 mmol/L (22-30); Chloride 108 mmol/L (98-107); Estimated CRCL calculation 87 ml/min; Estimated Glomerular Filt Rate > 60; Glucose 114 mg/dL (65-110); Lipase 115 U/L (23-300); Potassium 3.7 mmol/L (3.4-5.0); Sodium 142 mmol/L (137-145)
--- NOTE | 2024-10-11 00:58 | PC.NURSE ---
Pt called x1 w no response.
--- NOTE | 2024-10-11 01:08 | PC.NURSE ---
Pt called x2 w no response. Pt marked as LWBS triaged on dispo and tracker.
--- OUTSIDE RECORDS SUMMARY | 2024-10-11 01:12 | XMS_ITS ---
Author Organization [facility] Address [address] [place] [address] Care Team Providers Care Salesperson Automobiles Name Role Phone John TUCKER, Td Primary Care Provider Tucker FIGUEROA NP, NATALIYA Porras [phone] REASON FOR VISIT FU ER Visit Encounters Encounter Location Date Provider Diagnosis [facility] [address] [place] [address] 02/29/2024 NATALIYA FIGUEROA Plan Of Treatment No Information Progress Notes * Donovan BROWN MDOB: 2 (44 yo M)Acc No.[id number]:02/29/2024 Progress Notes Patient: Donovan HASSAN Appointment Provider: Enrrique Figueroa CNP :1980 A ge:43 Y S ex:Male Date:02/29/2024 [address] [facility] Pcp:Td Lopez MD Subjective: * Chief Complaints: * 1 . FU ER Visit. * Medical History: Objective: * Vitals: Assessment: Plan: * Treatment: * * Electronic signature of AMANDA FIGUEROA NP, MSN DOG AND CAT FOOD COOK-BC on 10/11/2024 at 01:19 AM EDT Sign off status: Pending * Appointment Provider: Enrrique Figueroa CNP Date: 1 Generated for Printing/Faxing/eTransmitting on: 0 10/11/2024 01:19 AM EDT
--- OUTSIDE RECORDS SUMMARY | 2024-10-11 01:12 | XMS_ITS ---
Author Organization [facility] Address [address] [place] [address] Care Team Providers Care Thermocouple Tester Name Role Phone John TUCKER, Td Primary Care Provider Unavaila jenny FIGUEROA ORE MIXER, NATALIYA Unavailable IFRAH TUCKER, BRODERICK Unavailable REASON FOR VISIT ERCP stent pull INPT Encounters Encounter Location Date Provider Diagnosis [facility] - Op [address] [facility] [place], [place] [id number] 09/23/2023 BRODERICKNICKY RG Plan Of Treatment No Information Progress Notes * Donovan BROWN MDOB: 2 (44 yo M)Acc No.[id number]:09/23/2023 Patient: Donovan HASSAN Gaby Provider: William Rg MD, FASGE :1980 A ge:43 Y S ex:Male Date:09/23/2023 Address:[address] [facility] Pcp:Td Lopez MD * * Electronic signature of ROSETTE RG MD, MD on 10/11/2024 at 02:12 AM EDT Sign off status: Pending * Provider: William Rg MD, FASGE Date: 0 09/23/2023 Generated for Printi ng/Faxing/eTransmitting on: 0 10/11/2024 02:12 AM EDT
--- OUTSIDE RECORDS SUMMARY | 2024-10-11 01:12 | XMS_ITS | Encounter Summary ---
Author Organization [facility] Address [address] [place] [address] Care Team Providers Care Card Grinder Helper Name Role Phone Td Lopez MD Primary Care Provider + Angie Woodard MD Unavailable [phone] Vimal Woodruff MD Unavailable [phone] PastorAlannah MA Unavailable [phone] PastorAlannah fair MA Unavailable [phone] PastorAlannah MA Unavailable [phone] Eun Arana RN Unavailable [phone] Lakshmi Garcia LPN Unavailable [phone] Encounter Details Date Type Department Care Team (Late st Contact Info) Description 12/21/2017 Documentation [address] [place] [id number] Shannan Farfan, JOHN Social History Tobacco Use Types Packs/Day Years Used Date Smoking Tobacco: Every Day Sex and Gender Information Value Date Recorded Sex Assigned at Not on file Legal Sex Male 3:38 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 07/08/2021 07/14/2021 11/05/2021 3:05 AM C DT COVID: Suspected 05/20/2022 05/20/2022 05/20/2022 2:32 AM BAKERY WORKER CONVEYOR LINE COVID: Suspected 09/20/2023 09/20/2023 09/20/2023 9:26 PM CDT COVID: Suspected 10/04/2023 10/04/2023 10/04/2023 3:55 PM CDT documented as of this encounter Care Teams Card Grinder Helper Relationship Specialty Start Date End Date Td Lopez MD [address] [facility] [address] [place] [address] PCP - General Family Medicine 11/09/20 Angie Woodard MD [address] [facility] [address] [place] [address] Consulting Physician Gastroenterology 07/17/21 Vimal Woodruff MD [address] [facility] [address] [place] [address] Consulting Physician Gastroenterology 02/10/22 Alannah Baumann MA [address] [facility] [address] [place] [address] ACO Care Grain Cleaner 12/31/23 01/05/24 Alannah Baumann MA [address] [facility] [address] [place] [address] ACO Care Grain Cleaner 06/29/24 06/30/24 Alannah Baumann MA [address] [place] [address] [address] [place] [address] ACO Care Grain Cleaner 08/03/24 08/03/24 Eun Arana RN [address] [place] [address] [address] [place] [address] Predictive Maintenance Specialist 08/17/24 08/25/24 Lakshmi Garcia LPN [address] [place] [address] [address] [place] [address] Predictive Maintenance Specialist 10/05/24 10/05/24 documented as of this encounter
--- OUTSIDE RECORDS SUMMARY | 2024-10-11 01:12 | XMS_ITS | Patient Health Record ---
Author Organization [facility] Address [address] [facility] [address] [place] [address] Care Team Providers Care Clinic Business Manager Name Role Phone John TUCKER, Td Primary Care Provider Tucker FIGUEROA NP, NATALIYA Unavailable Allergies Allergen (clinical drug ingredient) Drug/Non Drug [...] W/U Status Risk Notes Problem Chronic pancreatitis (717102834) Other chronic pancreatitis (K86.1) Active confirmed Vital Signs Heart Rate 88 /min 10/23/2023 Blood pressure diastolic 81 mm Hg 10/23/2023 Height 70 in 10/23/2023 Blood pressure systolic 110 mm Hg 10/23/2023 Weight 159 lbs 10/23/2023 BMI 22.81 kg/m2 10/23/2023 Encounters Encounter Location Date Provider Diagnosis [facility] [address] [place] [address] 10/23/2023 NATALIYA FIGUEROA Other chronic pancreatitis K86.1 [...] Insured Coverage Start Date Coverage End Date [address] [id number] [phone] [id number] Donovan Bailey Self - patient is the insured Medical (General) History Medical History History ICD Code chronic pancreatitis cyclic vomiting hyperemesis cannabis Surgical History Surgery Date(Month/Year) cholecystectomy ERCP
--- OUTSIDE RECORDS SUMMARY | 2024-10-11 01:12 | XMS_ITS | Clinical Summary ---
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 Gender Identity Not on file Sexual Orientation Not on file Last Filed Vital Signs Vital Sign Reading Time Taken Comments Blood Pressure 119/84 07/11/2022 2:03 AM DIRECTOR OF ADULT EPILEPSY Pulse 80 07/11/2022 2:03 AM DIRECTOR OF ADULT EPILEPSY Temperature 36.3 C (97.4 F) 07/11/2022 2:03 AM DIRECTOR OF ADULT EPILEPSY Respiratory Rate 18 07/11/2022 2:03 AM DIRECTOR OF ADULT EPILEPSY Oxygen Saturation 97% 07/11/2022 2:03 AM DIRECTOR OF ADULT EPILEPSY Inhaled Oxygen Concentration - - Weight 79.4 kg (175 lb) 07/10/2022 8:06 PM DIRECTOR OF ADULT EPILEPSY Height 177.8 cm (5' 10) 07/10/2022 8:06 PM DIRECTOR OF ADULT EPILEPSY Body Mass Index 25.11 07/10/2022 8:06 PM DIRECTOR OF ADULT EPILEPSY Plan of Treatment Health Maintenance Due Date Last Done Comments HEPATITIS B VACCINES (1 of 3 - 19+ 3-dose series) 2000 INFLUENZA VACCINE (#1) 2023 , 02/29/2020, 02/09/2018 COVID-19 Vaccine ( season) 2024 10/29/2021, 11/02/2020, 10/05/2020 DTAP/TDAP/TD VACCINES (2 - Td or Tdap) 10/30/2031 10/29/2021 HPV VACCINES Aged Out No longer eligi ble based on patient's age to complete this topic Insurance [facility] MEDICAID [place]
--- OUTSIDE RECORDS SUMMARY | 2024-10-11 01:12 | XMS_ITS | Encounter Summary ---
Author Organization [facility] Healthcare Address [address] [place] [address] Care Team Providers Care Copy Room Technician Name Role Phone Td Lopez MD Primary Care Provider + Angie Woodard MD Unavailable [phone] Vimal Woodruff MD Unavailable [phone] PastorAlannah MA Unavailable [phone] PastorAlannah fair MA Unavailable [phone] PastorAlannah fair MA Unavailable [phone] Eun Arana RN Unavailable [phone] Lakshmi Garcia LPN Unavailable [phone] Encounter Details Date Type Department Care Team (Late st Contact Info) Description 12/30/2023 Orders Only [facility] Health Information Management [address] [place] [address] Scanning, Provider Social History Tobacco Use Types Packs/Day Years Used Date Smoking Tobacco: Every Day Cigarettes Smokeless Tobacco: Never Alcohol Use Standard Drinks/Week Comments Not Currently 0 (1 standard drink = 0.6 oz pur e alcohol) [facility] Utilities Answer Date Recorded In the [...] often do you attend chur ch or sabianist services? Never 09/21/2023 Do you belong to any clubs o r organizations such as protestant groups, unions, fraternal or athletic groups, or [...] in a care home (including now)? No 09/21/2023 Personal Safety Answer Date Recorded Have you ever been in or are you currently in a harmful physical or emotional relationship or is someone making you feel afraid or unsafe? 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 Gender Identity Not on file Sexual Orientation [...] on filedocumented in this encounter Care Teams Copy Room Technician Relationship Specialty Start Date End Date Td Lopez MD [address] [facility] [address] [place] [address] PCP - General Family Medicine 11/09/20 Angie Woodard MD [address] [place] [address] Consulting Physician Gastroenterology 07/17/21 Vimal Woodruff MD [address] [place] [address] Consulting Physician Gastroenterology 02/10/22 [address]ASS [address] [place] [address] [address] [place] [address] ACO Care Amusement Centre Manager 12/31/23 01/05/24 Alannah Baumann MA [address] [facility] [address] [place] [address] ACO Care Amusement Centre Manager 06/29/24 06/30/24 Alannah Baumann MA [address] [facility] [address] [place] [address] ACO Care Amusement Centre Manager 08/03/24 08/03/24 Eun Arana RN [address] [place] [address] [address] [place] [address] Metal Drill Press Operator 08/17/24 08/25/24 Lakshmi Garcia LPN [address] [place] [address] [address] [place] [address] Metal Drill Press Operator 10/05/24 10/05/24 documented as of this encounter
--- OUTSIDE RECORDS SUMMARY | 2024-10-11 01:13 | XMS_ITS | Referral Summary ---
Author Organization [facility] Address [address] [place] [address] Care Team Providers Care Pole Shaver Helper Name Role Phone Td Lopez MD Primary Care Provider + Angie Woodard MD Unavailable [phone] Vimal Woodruff MD Unavailable [phone] Encounters Date Type Department Care Team Description 10/08/2024 7:54 PM CDT - 10/08/2024 8:06 PM T Emergency [facility] Emergency Department [address] [place] [address] Chronic abdominal pain (Primary Dx) Discharge Disposition: Discharge to home or self care 10/07/2024 5:29 AM CDT - 10/07/2024 8:34 AM T Emergency [address] [address] Jose Francisco Harper DO Prograis, Shannon Smith, MD Abdominal pain (Primary Dx); Chronic pancreatitis, unspecified pancreatitis type (HCC) Discharge Disposition: Discharge to home or self care 10/06/2024 11:00 AM CDT Office Visit [facility] Primary Care [address] [facility] [address] [place] [address] [phone] Td Lopez MD Abdominal pain (Primary Dx); Other chronic pancreatitis (HCC); Gastroesophageal reflux disease without esophagitis; Irritable bowel syndrome with both constipation and diarrhea 10/05/2024 DIPTI IP Outreach [address] [address] Lakshmi Garcia LPN 10/04/2024 Telephone [facility] Care [address] [place] [address] [phone] Td Lopez MD schedule DIPTI appt 10/02/2024 9:53 PM CDT - 10/03/2024 11:39 AM CDT Hospital Encounter [facility] [address] [place] [address] María Elena Calvo MD Medavaram, Atul, MD Sada, Kahmalia-Kalee Conceptia, MD Chowdhury, Farhanaz, MD Abdominal pain (Primary Dx); Acute pancreatitis, unspecified complication status, unspecified pancreatitis type; Pain, dental Discharge Disposition: Discharge to home or self care 09/30/2024 5:44 PM CDT - 09/30/2024 8:58 PM CDT Emergency [facility] Emergency Department [address] [place] [address] Radha Casas DO Abdominal pain (Primary Dx); Urinary tract infection with hematuria, site unspecified Discharge Disposition: Discharge to home or self care 08/23/2024 11:00 AM CDT Office Visit [address] [phone] Td Lopez MD Pain, dental (Primary Dx); Abdominal pain, epigastric 08/16/2024 3:42 AM CDT - 08/16/2024 6:26 AM CDT Emergency [facility] Emergency Department [address] [place] [address] Ashlie Burgess MD Abdominal pain, epigastric (Primary Dx) Discharge Disposition: Discharge to home or self care 08/15/2024 DIPTI IP Outreach [address] [address] Lakshmi Garcia LPN 08/13/2024 4:07 PM CDT - 08/13/2024 8:39 PM CDT Emergency [facility] Emergency Department [address] [place] [phone] Crista Bower MD Abdominal pain, generalized (Primary Dx) Discharge Disposition: Discharge to home or self care 08/10/2024 2:56 AM CDT - 08/12/2024 12:59 PM CDT Hospital Encounter [address] [phone] Domenic Arias MD Shimotani, DO Sadi Marks, Reinaldo Martel MD Acute pancreatitis, unspecified complication status, unspecified pancreatitis type (Primary Dx); Abdominal pain, generalized Discharge Disposition: Discharge to home or self care 08/11/2024 3:31 PM CDT Anesthesia Event [facility] [address] [place] [phone] Juan Daniel Freed MD 08/11/2024 3:15 PM CDT - 08/11/2024 3:45 PM CDT Surgery [facility] [address] [place] [phone] Georges Luna MD EGD 08/07/2024 2:23 AM CDT - 08/07/2024 5:31 AM CDT Emergency [facility] [address] [place] [phone] Justice Patel MD Abdominal pain, generalized (Primary Dx) Discharge Disposition: Discharge to home or self care 08/05/2024 Orders Only [facility] Information Management [address] [place] [address] Scanning, Provider 08/04/2024 [facility] ED Outreach [address] [address] Alannah Baumann MA 08/03/2024 [facility]IP[facility] ED Outreach [address] [address] Alannah Baumann MA 08/03/2024 2:13 PM CDT - 08/03/2024 3:27 PM CDT [facility] Emergency Department [address] [place] [address] Freddy Yao DO Chronic abdominal pain (Primary Dx); Drug-seeking behavior Discharge Disposition: Discharge to home or self care 08/02/2024 8:48 AM CDT - 08/02/2024 10:46 AM CDT [facility] Emergency Department [address] [place] [phone] Chronic abdominal pain (Primary Dx) Discharge Disposition: [...] 03/25/2024 Assessment & Plan (03/25/2024 11:50 AM MEDICAL PRACTITIONERS): - suspect just muscle strain - will check xray - offered PT but pt refused. Protein-calorie malnutrition, moderate Abdominal pain, generalized 09/19/2023 Assessment & Plan (09/25/2023 12:23 PM CDT): - improving - will give small amount of norco until pt heals from his procedure - f/u with GI Current use of mcfp anticoagulation 023 Assessment & Plan (09/25/2023 12:23 PM CDT): - stable - continue eliquis Assessment & Plan (03/20/2023 11:08 AM MEDICAL PRACTITIONERS): - restart eliquis due to life long need for anticoagulation History of thrombosis 03/20/2023 Assessment & Plan (09/25/2023 12:22 PM CDT): - stable - continue eliquis Assessment & Plan (03/20/2023 11:08 AM MEDICAL PRACTITIONERS): - restart eliquis due to life long [...] famotidine Assessment & Plan (03/20/2023 11:08 AM MEDICAL PRACTITIONERS): - stable - continue current medication Renal [...] eval. Assessment & Plan (03/25/2024 11:49 AM MEDICAL PRACTITIONERS): - ref to derm for eval Drug [...] pain Assessment & Plan (03/25/2024 11:49 AM MEDICAL PRACTITIONERS): - poor control - continue hyosciamine, famotidine, zofran - ref to GI for continued treatment Assessment & Plan (03/20/2023 11:07 AM MEDICAL PRACTITIONERS): - stable - continue current medication Duodenal [...] prn Assessment & Plan (07/15/2019 11:44 AM MEDICAL PRACTITIONERS): - stable - continue bentyl and amitriptyline [...] medication Assessment & Plan (07/15/2019 11:44 AM MEDICAL PRACTITIONERS): - stable - continue creon Annual physical [...] able Assessment & Plan (07/15/2019 11:46 AM MEDICAL PRACTITIONERS): - encourage healthy diet, exercise - check labs - encouraged quitting smoking 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 Assessment & Plan (07/15/2019 11:37 AM MEDICAL PRACTITIONERS): - encouraged pt to quit smoking Abdominal [...] GI Assessment & Plan (03/20/2023 11:07 AM MEDICAL PRACTITIONERS): - stable - continue current medication per [...] 09/17/202209/08 Assessment & Plan (03/20/2023 11:08 AM MEDICAL PRACTITIONERS): - stable off meds - will monitor [...] 09/25/2023 Assessment & Plan (03/26/2021 11:41 AM MEDICAL PRACTITIONERS): - stable today - continue current medications [...] lexapro Assessment & Plan (07/15/2019 11:38 AM MEDICAL PRACTITIONERS): - stable - continue current plan Gastroesophageal reflux dise ase without esophagitis 07/15/2019 03/18/2023 Overview (07/15/2019): - GERD managed by Dr Woodard - Pt on omeprazole and carafate for sx control Assessment & Plan (01/01/2021 12:09 PM CDT): - stable - continue current medication Assessment & Plan (02/07/2020 2:32 PM CDT): - stable - continue current medication Assessment & Plan (07/15/2019 11:38 AM MEDICAL PRACTITIONERS): - stable - continue omeprazole and carafate Viral illness 07/08/2019 02/12/2021 Assessment & Plan (07/09/2019 9:12 AM MEDICAL PRACTITIONERS): Medrol Dosepak as directed. Recommended Mucinex plain [...] this as this is not a viable termination clerk solution - will ref to pain management [...] medication Assessment & Plan (07/15/2019 11:36 AM MEDICAL PRACTITIONERS): - controlled - continue current plan Chronic [...] drink = 0.6 oz pur e alcohol) [facility] [employer] Answer Date Recorded In the past 12 months has e [employer], gas, oil, or water [employer] threatened to shut off services in your [...] attend chur ch or gnosticist services? Never 08/11/2024 Do you belong to any clubs o r organizations such as rastafarian groups, unions, fraternal or athletic groups, or [...] a senior care (including now)? No 09/21/2023 PHQ-9 Answer Date [...] any time in the past 12 m [facility], were you homeless or living in a senior care (including now)? No 08/11/2024 Personal Safety Answer Date Recorded Have you ever been in or are you currently in a harmful physical or emotional relationship or is someone making you feel afraid or unsafe? Denies 10/08/2024 Sex and Gender Information Value Date Recorded Sex Assigned at Not on file Legal Sex Male 3:38 AM MEDICAL PRACTITIONERS Gender Identity Not on file Sexual Orientation [...] on file Medical Devices Explanted Type Area Customer Leader Device Identifier Shelf Expiration Date Model / Serial / Lot [employer] [id number] Connell Flexi-Stent 7fr 5cm Small Pigtail Flexible .035in Stent - [id number] Implanted:Qty: 1 on 09/18/2018 by Vimal Woodruff MD at [facility] Explanted:Qty: 1 on 09/20/2018 at [facility] Stent N/A: Pancreas [employer] 06/10/2023 [id number] / / [id number] Conmed Gina [id number] Anna Viabil 10mm 8.5fr 6cm 200cm Fully Covered Self Expand Pull - [id number] - [id number] Implanted:Qty: 1 on 09/18/2018 by Vimal Woodruff MD at [facility] Explanted:Qty: 1 on 09/20/2018 at [facility] Stent N/A: Bile Duct [employer] Gina 06/29/2021 [id number] / [id number] / [employer] Connell Flexi-Stent 7fr 9cm Small Pigtail Flexible .035in Stent 6575 - [id number] Implanted:Qty: 1 on 02/07/2022 by Vimal Woodruff MD at [facility] Explanted:Qty: 1 on 02/10/2022 by Vimal Woodruff MD at [facility] Stent N/A: Pancreas [employer] 09/07/2026 [id number] / / [id number] [employer] Gina Wallflex 10mm X 60mm Fully Covered Biliary [id number] - [id number] Implanted:Qty: 1 on 02/07/2022 by Vimal Woodruff MD at [facility] Explanted:Qty: 1 on 02/10/2022 by Vimal Woodruff MD at [facility] Stent N/A: Bile Duct [employer] Gina 11/04/2023 [id number] / / [id number] [employer] Connell Flexi-Stent 7fr 9cm Small Pigtail Flexible .035in Stent 6575 - [id number] Implanted:Qty: 1 on 09/21/2023 by Vimal Woodruff MD at [facility] Explanted:Qty: 1 on 09/23/2023 by Vimal Woodruff MD at [facility] Stent N/A: Pancreas [employer] 03/11/2028 [id number] / / [id number] Description:Not present at b eginning of case. Self migrated out [employer] Gina Wallflex 10mm X 60mm Fully Covered Biliary [id number] - [id number] Implanted:Qty: 1 on 09/21/2023 by Vimal Woodruff MD at [facility] Explanted:Qty: 1 on 09/23/2023 by Vimal Woodruff MD at [facility] Stent N/A: Bile Duct [employer] Gina 08/02/2025 [id number] / / [id number] Procedures Procedure Name Priority Date/Time Associated Diagnosis [...] was last reviewed 2021. Testing performed by: [address] [address] Blood 10/08/2024 7:25 PM CDT 10/08/2024 7:29 PM CDT us Lilliana LAWTON LAB BLOOD ORDERABLES Final Result NEEL [address] [facility] [place] [address] * (ABNORMAL) Differential, auto (10/08/2024 7:25 PM CDT) Neutrophil abs 5.02 1.50 - 6.50 K/cumm Comment:Testing performed by : [address] [address] Imm gran abs 0.04 0.00 - 0.10 K/cumm NEEL Comment:Testing performed by : [address] [address] Lymphocyte abs 3.13 0.80 - 3.30 K/cumm NEEL Comment:Testing performed by : [address] [address] Monocyte abs 1.11(H) 0.20 - 0.80 K/cumm NEEL Comment:Testing performed by : [address] [address] Eosinophil abs 0.10 0.00 - 0.50 K/cumm NEEL Comment:Testing performed by : [address] [address] Basophil abs 0.06 0.00 - 0.10 K/cumm NEEL Comment:Testing performed by : [address] [address] Neutrophil pct 53.1 % NEEL Comment: Interpretive Data Percent cell count reference ranges are not reported, since discordance with absolute values may lead to misinterpretation of CBC data. Current Interpretive Data was last revised on 2017. Testing performed by: [address] [address] Imm gran pct 0.4 % [facility] Comment: Interpretive Data Percent cell count reference ranges are not reported, since discordance with absolute values may lead to misinterpretation of CBC data. Current Interpretive Data was last revised on 2017. Testing performed by: [address] [address] Lymphocyte pct 33.1 % [facility] Comment: Interpretive Data Percent cell count reference ranges are not reported, since discordance with absolute values may lead to misinterpretation of CBC data. Current Interpretive Data was last revised on 2017. Testing performed by: [address] [address] Monocyte pct 11.7 % [facility] Comment: Interpretive Data Percent cell count reference ranges are not reported, since discordance with absolute values may lead to misinterpretation of CBC data. Current Interpretive Data was last revised on 2017. Testing performed by: [address] [address] Eosinophil pct 1.1 % [facility] Comment: Interpretive Data Percent cell count reference ranges are not reported, since discordance with absolute values may lead to misinterpretation of CBC data. Current Interpretive Data was last revised on 2017. Testing performed by: [address] [address] Basophil pct 0.6 % [facility] Comment: Interpretive Data Percent cell count reference ranges are not reported, since discordance with absolute values may lead to misinterpretation of CBC data. Current Interpretive Data was last revised on 2017. Testing performed by: [address] [address] Blood 10/08/2024 7:25 PM CDT 10/08/2024 7:29 PM CDT Lilliana LAWTON LAB BLOOD ORDERABLES Final Result NEEL SMITH [address] [facility] [place] [address] * (ABNORMAL) CBC with auto differential (10/08/2024 7:25 PM CDT) WBC 9.46 3.80 - 9.90 K/cumm Comment:Testing performed by : [address] [address] Hgb 15.0 13.0 - 17.5 g/dL NEEL Comment:Testing performed by : [address] [address] Hct 44.6 38.9 - 50.3 % NEEL Comment:Testing performed by : [address] [address] Plt 321 150 - 400 K/cumm NEEL Comment:Testing performed by : [address] [address] MPV 10.0 9.1 - 12.3 fL NEEL Comment:Testing performed by : [address] [address] RBC 5.38 4.30 - 5.80 M/cumm NEEL Comment:Testing performed by : [address] [address] MCV 82.9 81.3 - 96.4 fL NEEL Comment:Testing performed by : [address] [address] MCH 27.9 27.1 - 33.3 pg NEEL Comment:Testing performed by : [address] [address] MCHC 33.6 32.3 - 35.7 g/dL NEEL Comment:Testing performed by : [address] [address] RDW CV 15.5(H) 11.1 - 14.9 % NEEL Comment:Testing performed by : [address] [address] RDW SD 46.7 35.7 - 48.1 fL NEEL Comment:Testing performed by : [address] [address] NRBC abs 0.00 0.00 - 0.01 K/cumm NEEL Comment:Testing performed by : [address] [address] Blood Venous blood specimen / Unknown 10/08/2024 7:25 PM CDT 10/08/2024 7:29 PM CDT Lilliana LAWTON LAB BLOOD ORDERABLES Final Result Performing Organization Address City/[facility] Co de Phone Number [address] [place] [employer] [place] [address] * Lipase (10/08/2024 7:25 PM CDT) [facility] Lipase 42 10 - 99 Units/L Comment:Testing performed by : [address] [address] Blood Venous blood specimen / Unknown 10/08/2024 7:25 PM CDT 10/08/2024 7:29 PM CDT Lilliana LAWTON LAB BLOOD ORDERABLES Final Result Performing Organization Address [facility] Co de Phone Number [address] [address] * Comprehensive metabolic panel (10/08/2024 7:25 PM CDT) [facility] Sodium 141 135 - 145 mmol/L Comment:Testing performed by : [address] [address] Potassium, pl 4.3 3.3 - 4.9 mmol/L NEEL SMITH Comment: Hemolyzed; Potassium value may be falsely elevated by as much as 1.0 mmol/L. Suggest redraw and reanalysis. Testing performed by: [address] [address] Chloride 105 97 - 110 mmol/L NEEL SMITH Comment:Testing performed by : [address] [address] CO2 22 22 - 32 mmol/L NEEL Comment:Testing performed by : [address] [address] Anion gap 14 2 - 15 mmol/L NEEL Comment:Testing performed by : [address], [place]., [address] BUN 7 6 - 25 mg/dL [facility] Comment:Testing performed by : [address], [place]., [address] Creatinine 1.02 0.80 - 1.30 mg/dL [facility] Comment:Testing performed by : [address], [place]., [address] Glucose 104 70 - 199 mg/dL [facility] Comment: Interpretive Data Fasting glucose [...] was last revised 2022. Testing performed by: [address] [address] Calcium 10.1 8.5 - 10.3 mg/dL [facility] Comment:Testing performed by : [address] [address] Bilirubin, total 0.3 0.1 - 1.2 mg/dL [facility] Comment:Testing performed by : [address] [address] Protein, pl 7.7 6.5 - 8.5 g/dL NEEL Comment:Testing performed by : [address] [address] Albumin 4.8 3.5 - 5.0 g/dL NEEL Comment:Testing performed by : [address] [address] Alk phos 88 40 - 130 Units/L NEEL SMITH Comment:Testing performed by : [facility], [address] [place] [address]., [address] ALT 24 7 - 55 Units/L NEEL SMITH Comment:Testing performed by : [address] [address] AST 25 10 - 50 Units/L NEEL SMITH Comment: Hemolyzed; result may be falsely elevated Testing performed by: [address] [address] Blood 10/08/2024 7:25 PM CDT 10/08/2024 7:29 PM CDT us Lilliana LAWTON LAB BLOOD ORDERABLES Final Result Performing Organization Address City/State/[facility] Co de Phone Number NEEL [address] [facility] [place] [address] * CTA Chest Abdomen Pelvis (10/07/2024 6:41 [...] Melissa Phoenix M.D. SN T: Report ID: [id number] Reading Location: [id number] Procedure Note Melissa Phoenix MD - 10/07/2024 [...] Melissa Phoenix M.D. SN T: Report ID: [id number] Reading Location: [id number] Jose Francisco Harper DO IMG CT PROCEDURES [...] states this started about an hour ago [employer]. 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 SN T: Report ID: [id number] Reading Location: [id number] Procedure Note Melissa Phoenix MD - 10/07/2024 EXAM DESCRIPTION: XR CHEST 1 VIEW REASON FOR STUDY: Abd pain, unspecified C/o upper L quad abd pain. Pt states this started about an hour ago [employer].Pt states that he was recently hospitalized for [...] Melissa Phoenix M.D. SN T: Report ID: [id number] Reading Location: [place] [address] Jose Francisco Harper DO IMG XR PROCEDURES [...] DO LAB BLOOD ORDERABLES Final Result NEEL [address] [facility] [place] [address] * ECG 12 lead (10/07/2024 4:11 AM CDT) Ventricular Rate EKG/Min 65 BPM [facility] Atrial Rate 65 BPM [facility] MS-Interval (MSEC) 108 ms [facility] QRS-Interval (MSEC) 102 ms [facility] QT-Interval (MSEC) 388 ms [facility] QTc 403 ms [facility] P [place] 30 degrees [facility] R [place] 56 degrees [facility] T [place] 58 degrees [facility] Diagnosis Sinus rhythm with short MS Otherwise normal ECG When compared with ECG of 27-JUN-2024 09:54, No significant change was found Confirmed by ASHLIE BERMEO M.D. ([id number]) on 10/07/2024 11:47:08 PM [facility] 10/07/2024 4:11 AM CDT 10/07/2024 11:47 PM CDT us Jose Francisco Haprer DO ECG ORDERABLES Final Resul t [facility] * Urinalysis reflex to microscopic and culture Urine (10/07/2024 4:06 AM CDT) Color, ur Yellow Yellow Clarity, ur Clear Clear NEEL Specific gravity, ur 1.013 1.003 - 1.030 NEEL pH, urine 5.5 [facility] Comment: Interpretive Data U rine pH is affected by diet, medications, systemic acid-base disturbances, and renal tubular function. pH may affect urinary stone formation. For example, urine pH below 6.0 may help reduce the tendency for calcium phosphate stones and pH greater than 6.0 may reduce the tendency for uric acid stone formation. Source: [facility] Current Interpretive Data was last revised on 2017 Protein, ur ql Negative Negative [facility] Glucose, ur ql Negative Negative [facility] Ketones, ur Negative Negative [facility] Bilirubin, ur Negative Negative [facility] Blood, ur Negative Negative [facility] Urobilinogen, ur <2.0 <2.0 mg/dL [facility] Nitrite, ur Negative Negative [facility] Leukocyte esterase, ur Negative Negative [facility] UA reflex comment Reflex conditions for microscopic UA and culture not met. NEEL Urine 10/07/2024 4:06 AM CDT 10/07/2024 4:10 AM CDT us Jose Francisco Harper DO LAB MICROBIOLOGY - GENERAL ORDERABLES Final Result NEEL [address] [place] [address] * Troponin T high-sensitivity series (baseline, 2hr, 4hr, 6hr) (10/07/2024 4:00 AM CDT) [facility] Trop T hs <6 <=22 ng/L Comment: Interpretive Data For further hscTnT resources including the diagnostic algorithm and an aid in interpretation, copy and paste this link: [email or web address] Current Interpretive Data last revised 2020. Blood 10/07/2024 4:00 AM CDT 10/07/2024 4:02 AM CDT Jose Francisco Harper DO LAB BLOOD ORDERABLES Final Result NEEL [address] [address] * eGFR (10/07/2024 4:00 AM CDT) [facility] eGFR 87 >=60 mL/min/1. 73 m2 Comment: [...] DO LAB BLOOD ORDERABLES Final Result NEEL [address] [facility] [place] [address] * (ABNORMAL) Differential, auto (10/07/2024 4:00 AM CDT) Neutrophil abs 5.81 1.50 - 6.50 K/cumm Imm gran abs 0.04 0.00 - 0.10 K/cumm [facility] Lymphocyte abs 3.73(H) 0.80 - 3.30 K/cumm [facility] Monocyte abs 1.14(H) 0.20 - 0.80 K/cumm [facility] Eosinophil abs 0.27 0.00 - 0.50 K/cumm [facility] Basophil abs 0.06 0.00 - 0.10 K/cumm [facility] Neutrophil pct 52.6 % [facility] Comment: Interpretive Data Percent cell count reference ranges are not reported, since discordance with absolute values may lead to misinterpretation of CBC data. Current Interpretive Data was last revised on 2017. Imm gran pct 0.4 % [facility] Comment: Interpretive Data Percent cell count reference ranges are not reported, since discordance with absolute values may lead to misinterpretation of CBC data. Current Interpretive Data was last revised on 2017. Lymphocyte pct 33.8 % [facility] Comment: Interpretive Data Percent cell count reference ranges are not reported, since discordance with absolute values may lead to misinterpretation of CBC data. Current Interpretive Data was last revised on 2017. Monocyte pct 10.3 % [facility] Comment: Interpretive Data Percent cell count reference ranges are not reported, since discordance with absolute values may lead to misinterpretation of CBC data. Current Interpretive Data was last revised on 2017. Eosinophil pct 2.4 % [facility] Comment: Interpretive Data Percent cell count reference ranges are not reported, since discordance with absolute values may lead to misinterpretation of CBC data. Current Interpretive Data was last revised on 2017. Basophil pct 0.5 % [facility] Comment: Interpretive Data Percent cell count reference ranges are not reported, since discordance with absolute values may lead to misinterpretation of CBC data. Current Interpretive Data was last revised on 2017. Blood 10/07/2024 4:00 AM CDT 10/07/2024 4:02 AM CDT [facility] LAB BLOOD ORDERABLES Final Result Performing Organization Address City/[facility]/ZIP Co de Phone Number [facility] [address] [address] * (ABNORMAL) CBC with auto differential (10/07/2024 4:00 AM CDT) WBC 11.05(H) 3.80 - 9.90 K/cumm Hgb 14.9 13.0 - 17.5 g/dL [facility] Hct 44.7 38.9 - 50.3 % [facility] Plt 281 150 - 400 K/cumm [facility] MPV 9.8 9.1 - 12.3 fL [facility] RBC 5.28 4.30 - 5.80 M/cumm [facility] MCV 84.7 81.3 - 96.4 fL [facility] MCH 28.2 27.1 - 33.3 pg [facility] MCHC 33.3 32.3 - 35.7 g/dL [facility] RDW CV 15.3(H) 11.1 - 14.9 % [facility] RDW SD 46.6 35.7 - 48.1 fL [facility] NRBC abs 0.00 0.00 - 0.01 K/cumm [facility] Blood Venous blood specimen / Unknown 10/07/2024 4:00 AM CDT 10/07/2024 4:02 AM CDT Jose Francisco Harper LAB BLOOD ORDERABLES Final Result Performing Organization Address City/[facility]/ZIP Co de Phone Number NEEL [address] [employer] [place] [address] * (ABNORMAL) Lipase (10/07/2024 4:00 AM CDT) Lipase 104(H) 10 - 99 Units/L Blood Venous blood specimen / Unknown 10/07/2024 4:00 AM CDT 10/07/2024 4:02 AM CDT Jose Francisco Harper DO LAB BLOOD ORDERABLES Final Result [facility] [address] [facility] [place] [address] * Comprehensive metabolic panel (10/07/2024 4:00 AM CDT) [facility] Sodium 142 135 - 145 mmol/L Potassium, pl 4.1 3.3 - 4.9 mmol/L [facility] Chloride 107 97 - 110 mmol/L [facility] CO2 23 22 - 32 mmol/L [facility] Anion gap 12 2 - 15 mmol/L [facility] BUN 9 6 - 25 mg/dL [facility] Creatinine 1.08 0.80 - 1.30 mg/dL [facility] Glucose 90 70 - 199 mg/dL [facility] Comment: Interpretive Data Fasting glucose >/= [...] 2022. Calcium 9.4 8.5 - 10.3 mg/dL [facility] Bilirubin, total 0.2 0.1 - 1.2 mg/dL [facility] Protein, pl 7.1 6.5 - 8.5 g/dL [facility] Albumin 4.4 3.5 - 5.0 g/dL [facility] Alk phos 81 40 - 130 Units/L [facility] ALT 23 7 - 55 Units/L [facility] AST 24 10 - 50 Units/L [facility] Blood 10/07/2024 4:00 AM CDT 10/07/2024 4:02 AM CDT Jose Francisco Harper DO LAB BLOOD ORDERABLES Final Result Performing Organization Address [facility] de Phone Number NEEL [address] [address] * eGFR (10/03/2024 7:08 AM CDT) Pathologist [facility] eGFR >90 >=60 mL/min/1. 73 m2 [...] ORDERABLES Final Res ult Performing Organization Address [facility] Co de Phone Number NEEL [address] [place] [employer] [place] [address] * (ABNORMAL) CBC without differential (10/03/2024 7:08 AM CDT) [facility] WBC 13.42(H) 3.80 - 9.90 K/cumm Hgb 12.4(L) 13.0 - 17.5 g/dL [facility] Hct 37.9(L) 38.9 - 50.3 % [facility] Plt 226 150 - 400 K/cumm [facility] MPV 10.0 9.1 - 12.3 fL [facility] RBC 4.43 4.30 - 5.80 M/cumm [facility] MCV 85.6 81.3 - 96.4 fL [facility] MCH 28.0 27.1 - 33.3 pg [facility] MCHC 32.7 32.3 - 35.7 g/dL [facility] RDW CV 15.4(H) 11.1 - 14.9 % [facility] RDW SD 48.1 35.7 - 48.1 fL [facility] NRBC abs 0.00 0.00 - 0.01 K/cumm [facility] Blood 10/03/2024 7:08 AM CDT 10/03/2024 7:22 AM CDT us Fred Toth MD LAB BLOOD ORDERABLES Final Res ult Performing Organization Address [facility] de Phone Number [address] [place] [employer] [place] [address] * Lipase (10/03/2024 7:08 AM CDT) Pathologist [facility] Lipase 55 10 - 99 Units/L Blood 10/03/2024 7:08 AM CDT 10/03/2024 7:22 AM CDT us Fred Toth MD LAB BLOOD ORDERABLES Final Res ult Performing Organization Address [facility] de Phone Number [address] [place] [employer] [place] [address] * Basic metabolic panel (10/03/2024 7:08 AM CDT) Pathologist [facility] Sodium 141 135 - 145 mmol/L Potassium, pl 4.4 3.3 - 4.9 mmol/L [facility] Chloride 107 97 - 110 mmol/L [facility] CO2 24 22 - 32 mmol/L [facility] Anion gap 10 2 - 15 mmol/L [facility] BUN 9 6 - 25 mg/dL [facility] Creatinine 0.96 0.80 - 1.30 mg/dL [facility] Glucose 100 70 - 199 mg/dL NEEL [...] LAB BLOOD ORDERABLES Final Res ult NEEL [address] [facility] [place] [address] * (ABNORMAL) Lipid panel (10/03/2024 1:54 AM CDT) Pathologist [facility] Cholesterol 114 30 - 199 mg/dL Comment: [...] last revised on 2017. Testing performed by: [facility], [address] [place] [address]., [address] Triglycerides 115 <=149 mg/dL NEEL Comment: Interpretive [...] last revised on 2017. Testing performed by: [address] [address] HDL 32(L) >=40 mg/dL NEEL Comment: Interpretive [...] last revised on 2017. Testing performed by: [address] [address] LDL, calculated 61 <=129 mg/dL NEEL Comment: [...] last revised on 2023. Testing performed by: [address] [address] Non-HDL Cholesterol 82 mg/dL NEEL SMITH Comment: [...] last revised on 2017. Testing performed by: [address] [address] Chol/HDL ratio 4 NEEL Comment:Testing performed by : [address] [address] Blood 10/03/2024 1:54 AM CDT 10/03/2024 2:00 AM CDT us Fred Toth MD LAB BLOOD ORDERABLES Final Res ult Performing Organization Address City/State/[facility] Co de Phone Number NEEL [address] [facility] [place] [address] * CT Abdomen Pelvis W Contrast (10/03/2024 [...] Aryan Jovel M.D. AR: GIOVANNA Report ID: [id number] Reading Location: [place] [address] Procedure Note Aryan Jovel MD - 10/03/2024 [...] Aryan Jovel M.D. AR: GIOVANNA Report ID: [id number] Reading Location: [place] [address] Fred Toth MD [facility] PROCEDURES Final Result * (ABNORMAL) Drugs of Abuse Screen, Urine with Reflex Confirmation (10/03/2024 12:51 AM CDT) Pathologist [facility] Amphetamine, ur Not Detected CutOff 500ng/mL Comment: Interpretive Data - Amphetamines: Samples containing greater than 500 ng/mL d-methamphetamine or other cross-reacting amphetamine compounds are reported as positive. Amphetamine immunoassays are subject to significant false positive rates due to cross-reactivity of non-amphetamine drugs. Confirmatory testing required for definitive results. Current Interpretive Data was last reviewed 2022. Testing performed by: [facility], [address] [place] [address]., [address] Barbiturates, ur Not Detected CutOff 200ng/mL NEEL [facility] Comment: Interpretive Data - Barbiturates: Samples containing greater than 200 ng/mL secobarbital or other cross-reacting barbiturate compounds are reported as positive. False positive and false negative results are possible. Confirmatory testing required for definitive results. Current Interpretive Data was last reviewed 2022. Testing performed by: [address] [address] Benzodiazepines, ur Not Detected CutOff 100ng/mL [facility] Comment: Interpretive Data - Benzodiazepines: Samples containing greater than 100 ng/mL nordiazepam or other cross-reacting compounds are reported as positive. False positive and false negative results are possible. Confirmatory testing required for definitive results. Current Interpretive Data was last reviewed 2022. Testing performed by: [facility], [address] [place] [address]., [address] Cannabinoids, ur Screen Positive, presumptive (A) CutOff 50 ng/mL [facility] Comment: Interpretive Data - Cannabinoids: Samples containing greater than 50 ng/mL delta-9 THC -COOH or other cross- reacting compounds are reported as positive. False positive and false negative results are possible. Confirmatory testing required for definitive results. Current Interpretive Data was last reviewed 2022. Testing performed by: [facility], [address] [place] [address]., [address] Cocaine, ur Not Detected CutOff 150ng/mL [facility] Comment: Interpretive Data - Cocaine: Samples containing greater than 150 ng/mL benzoylecgonine or other cross- reacting compounds are reported as positive. False positive and false negative results are possible. Confirmatory testing required for definitive results. Current Interpretive Data was last reviewed 2022. Testing performed by: [address] [address] Fentanyl, Ur Not Detected CutOff 5 ng/mL [facility] Comment: Interpretive Data - Fentanyl: Samples containing greater than 1 ng/mL fentanyl or other cross-reacting fentanyl compounds are reported as positive. False positive and false negative results are possible. Confirmatory testing required for definitive results. Current Interpretive Data was last reviewed 2022. Testing performed by: [address] [address] Methadone, ur Not Detected CutOff 300ng/mL [facility] Comment: Interpretive Data - Methadone: Samples containing greater than 300 ng/mL d,l-methadone or other cross-reacting compounds are reported as positive. False positive and false negative results are possible. Confirmatory testing required for definitive results. Current Interpretive Data was last reviewed 2022. Testing performed by: [address] [address] Opiates, ur Not Detected CutOff 300ng/mL NEEL Comment: Interpretive Data - Opiates: Samples containing greater than 300 ng/mL morphine or other cross-reacting compounds are reported as positive. False positive and false negative results are possible. Confirmatory testing required for definitive results. Current Interpretive Data was last reviewed 2022. Testing performed by: [address] [address] Oxycodone, ur Not Detected CutOff 100ng/mL NEEL Comment: Interpretive Data - Oxycodone: Samples containing greater than 100 ng/mL oxycodone or other cross-reacting compounds are reported as positive. False positive and false negative results are possible. Confirmatory testing required for definitive results. Current Interpretive Data was last reviewed 2022. Testing performed by: [address] [address] Phencyclidine, ur Not Detected CutOff 25 ng/mL NEEL Comment: Interpretive Data - Phencyclidine: Samples containing greater than 25 ng/mL phencyclidine or other cross-reacting compounds are reported as positive. False positive and false negative results are possible. Confirmatory testing required for definitive results. Current Interpretive Data was last reviewed 2022. Testing performed by: [address] [address] Urine Creatinine 102 mg/dL NEEL Comment: Interpretive Data Urine Creatinine: < 10 mg/dL is extremely dilute = or > 10 but < 20 mg/dL is dilute = or > 20 mg/dL is normal Current Interpretive Data was last revised on 2017. Testing performed by: [address] [address] Urine 10/03/2024 12:5 1 AM CDT 10/03/2024 [...] URINE ORDERABLES Final Res ult NEEL [address] [facility] [place] [address] * Urinalysis reflex to microscopic and culture Urine (10/02/2024 10:09 PM CDT) Color, ur Yellow Yellow Comment:Testing performed by : [address] [address] Clarity, ur Clear Clear NEEL Comment:Testing performed by : [address] [address] Specific gravity, ur 1.011 1.003 - 1.030 NEEL Comment:Testing performed by : [address] [address] pH, urine 6.0 NEEL Comment: Interpretive Data U rine pH is affected by diet, medications, systemic acid-base disturbances, and renal tubular function. pH may affect urinary stone formation. For example, urine pH below 6.0 may help reduce the tendency for calcium phosphate stones and pH greater than 6.0 may reduce the tendency for uric acid stone formation. Source: [facility] [employer] Current Interpretive Data was last revised on 2017 Testing performed by: [address] [address] Protein, ur ql Negative Negative NEEL Comment:Testing performed by : [address] [address] Glucose, ur ql Negative Negative NEEL Comment:Testing performed by : [address] [address] Ketones, ur Negative Negative NEEL Comment:Testing performed by : [address] [address] Bilirubin, ur Negative Negative NEEL Comment:Testing performed by : [address] [address] Blood, ur Negative Negative NEEL Comment:Testing performed by : [facility], [address] [place] [address]., [address] Urobilinogen, ur <2.0 <2.0 mg/dL NEEL Comment:Testing performed by : [facility], [address] [place] [address], [place]., [address] Nitrite, ur Negative Negative NEEL Comment:Testing performed by : [address] [address] Leukocyte esterase, ur Negative Negative NEEL Comment:Testing performed by : [address], [place]., [address] UA reflex comment Reflex conditions for microscopic UA and culture not met. NEEL Comment:Testing performed by : [address], [place]., [address] Urine 10/02/2024 10:0 9 PM CDT 10/02/2024 10:11 PM CDT María Elena Calvo MD LAB MICROBIOLOGY - GENERA L ORDERABLES Final Result NEEL [address] [facility] [place] [address] * eGFR (10/02/2024 9:51 PM [...] was last reviewed 2021. Testing performed by: [address] [address] Blood 10/02/2024 9:51 PM CDT 10/02/2024 9:57 PM CDT us María Elena Calvo MD LAB BLOOD ORDERABLES Renee antunez Result [facility] [address] [facility] [place] [address] * (ABNORMAL) Differential, auto (10/02/2024 9:51 PM CDT) Neutrophil abs 12.91(H) 1.50 - 6.50 K/cumm Comment:Testing performed by : [address] [address] Imm gran abs 0.10 0.00 - 0.10 K/cumm NEEL Comment:Testing performed by : [address] [address] Lymphocyte abs 1.91 0.80 - 3.30 K/cumm NEEL Comment:Testing performed by : [address] [address] Monocyte abs 1.44(H) 0.20 - 0.80 K/cumm NEEL Comment:Testing performed by : [address] [address] Eosinophil abs 0.14 0.00 - 0.50 K/cumm NEEL Comment:Testing performed by : [address] [address] Basophil abs 0.07 0.00 - 0.10 K/cumm NEEL Comment:Testing performed by : [address] [address] Neutrophil pct 78.0 % NEEL Comment: Interpretive Data Percent cell count reference ranges are not reported, since discordance with absolute values may lead to misinterpretation of CBC data. Current Interpretive Data was last revised on 2017. Testing performed by: [address] [address] Imm gran pct 0.6 % [facility] Comment: Interpretive Data Percent cell count reference ranges are not reported, since discordance with absolute values may lead to misinterpretation of CBC data. Current Interpretive Data was last revised on 2017. Testing performed by: [address] [address] Lymphocyte pct 11.5 % [facility] Comment: Interpretive Data Percent cell count reference ranges are not reported, since discordance with absolute values may lead to misinterpretation of CBC data. Current Interpretive Data was last revised on 2017. Testing performed by: [address] [address] Monocyte pct 8.7 % [facility] Comment: Interpretive Data Percent cell count reference ranges are not reported, since discordance with absolute values may lead to misinterpretation of CBC data. Current Interpretive Data was last revised on 2017. Testing performed by: [address] [address] Eosinophil pct 0.8 % [facility] Comment: Interpretive Data Percent cell count reference ranges are not reported, since discordance with absolute values may lead to misinterpretation of CBC data. Current Interpretive Data was last revised on 2017. Testing performed by: [address] [address] Basophil pct 0.4 % [facility] Comment: Interpretive Data Percent cell count reference ranges are not reported, since discordance with absolute values may lead to misinterpretation of CBC data. Current Interpretive Data was last revised on 2017. Testing performed by: [address] [address] Blood 10/02/2024 9:51 PM CDT 10/02/2024 9:57 PM CDT us María Elena Calvo MD LAB BLOOD ORDERABLES Renee antunez Result NEEL [address] [facility] [place] [address] * (ABNORMAL) CBC with auto differential (10/02/2024 9:51 PM CDT) [facility] WBC 16.57(H) 3.80 - 9.90 K/cumm Comment:Testing performed by : [address], [address] Hgb 13.9 13.0 - 17.5 g/dL NEEL Comment:Testing performed by : [address], [address] Hct 41.0 38.9 - 50.3 % NEEL Comment:Testing performed by : [address], [address] Plt 281 150 - 400 K/cumm NEEL Comment:Testing performed by : [address], [address] MPV 9.9 9.1 - 12.3 fL NEEL Comment:Testing performed by : [address], [address] RBC 4.94 4.30 - 5.80 M/cumm NEEL Comment:Testing performed by : [address], [address] MCV 83.0 81.3 - 96.4 fL NEEL Comment:Testing performed by : [address] [address] MCH 28.1 27.1 - 33.3 pg NEEL Comment:Testing performed by : [address], [address] MCHC 33.9 32.3 - 35.7 g/dL NEEL Comment:Testing performed by : [address], [address] RDW CV 15.4(H) 11.1 - 14.9 % NEEL Comment:Testing performed by : [address], [address] RDW SD 46.5 35.7 - 48.1 fL NEEL Comment:Testing performed by : [address], [address] NRBC abs 0.00 0.00 - 0.01 K/cumm NEEL Comment:Testing performed by : [address] [address] Blood Venous blood specimen / Unknown 10/02/2024 9:51 PM CDT 10/02/2024 9:57 PM CDT María Elena Calvo MD LAB BLOOD ORDERABLES Renee l Result Performing Organization Address [facility] de Phone Number [address] [employer] [place] [address] * (ABNORMAL) Lipase (10/02/2024 9:51 PM CDT) Pathologist [facility] Lipase 444(H) 10 - 99 Units/L Comment:Testing performed by : [address] [address] Blood Venous blood specimen / Unknown 10/02/2024 9:51 PM CDT 10/02/2024 9:57 PM CDT María Elena Calvo MD LAB BLOOD ORDERABLES Renee l Result Performing Organization Address [facility] de Phone Number [address] [address] * Comprehensive metabolic panel (10/02/2024 9:51 PM CDT) [facility] Sodium 143 135 - 145 mmol/L Comment:Testing performed by : [address] [address] Potassium, pl 3.9 3.3 - 4.9 mmol/L NEEL Comment:Testing performed by : [address] [address] Chloride 107 97 - 110 mmol/L NEEL Comment:Testing performed by : [address] [address] CO2 22 22 - 32 mmol/L NEEL Comment:Testing performed by : [address] [address] Anion gap 14 2 - 15 mmol/L NEEL Comment:Testing performed by : [address] [address] BUN 7 6 - 25 mg/dL NEEL Comment:Testing performed by : [address] [address] Creatinine 1.08 0.80 - 1.30 mg/dL NEEL Comment:Testing performed by : [address] [address] Glucose 129 70 - 199 mg/dL NEEL [...] was last revised 2022. Testing performed by: [address] [address] Calcium 10.0 8.5 - 10.3 mg/dL NEEL Comment:Testing performed by : [address] [address] Bilirubin, total 0.3 0.1 - 1.2 mg/dL NEEL Comment:Testing performed by : [address] [address] Protein, pl 7.2 6.5 - 8.5 g/dL NEEL Comment:Testing performed by : [address] [address] Albumin 4.5 3.5 - 5.0 g/dL NEEL Comment:Testing performed by : [address] [address] Alk phos 84 40 - 130 Units/L NEEL Comment:Testing performed by : [address] [address] ALT 28 7 - 55 Units/L NEEL Comment:Testing performed by : [address], [place]., [address] AST 37 10 - 50 Units/L NEEL SMITH Comment:Testing performed by : [facility], [address] [place] [address]., [address] Blood 10/02/2024 9:51 PM CDT 10/02/2024 9:57 PM CDT María Elena Calvo MD LAB BLOOD ORDERABLES Renee antunez Result NEEL SARAH [address] [facility] [place] [address] * CT Abdomen Pelvis W Contrast (09/30/2024 [...] Esa Cao M.D. AG: GONZALES Report ID: [id number] Reading Location: [id number] Procedure Note Esa Cao MD - 09/30/2024 [...] Esa Cao M.D. AG: GONZALES Report ID: [id number] Reading Location: [id number] Radha Casas DO [facility] PROCEDURES Final Result * (ABNORMAL) Urinalysis reflex to microscopic and culture Urine (09/30/2024 5:55 PM CDT) Color, ur Yellow Yellow Comment:Testing performed by : [address] [address] Clarity, ur Clear Clear NEEL Comment:Testing performed by : [address] [address] Specific gravity, ur 1.035(H) 1.003 - 1.030 NEEL Comment:Testing performed by : [address] [address] pH, urine 6.0 NEEL Comment: Interpretive Data U rine pH is affected by diet, medications, systemic acid-base disturbances, and renal tubular function. pH may affect urinary stone formation. For example, urine pH below 6.0 may help reduce the tendency for calcium phosphate stones and pH greater than 6.0 may reduce the tendency for uric acid stone formation. Source: [facility] [employer] Current Interpretive Data was last revised on 2017 Testing performed by: [address] [address] Protein, ur ql 1+(A) Negative NEEL Comment:Testing performed by : [address] [address] Glucose, ur ql Negative Negative NEEL Comment:Testing performed by : [address] [address] Ketones, ur 1+(A) Negative NEEL Comment:Testing performed by : [address] [address] Bilirubin, ur Negative Negative NEEL Comment:Testing performed by : [address] [address] Blood, ur Negative Negative NEEL Comment:Testing performed by : [address] [address] Urobilinogen, ur 2.0(A) <2.0 mg/dL NEEL Comment:Testing performed by : [address] [address] Nitrite, ur Negative Negative NEEL Comment:Testing performed by : [address] [address] Leukocyte esterase, ur Negative Negative NEEL Comment:Testing performed by : [address] [address] UA reflex comment Reflex to microscopic UA will be performed. NEEL Comment:Testing performed by : [address] [address] Urine 09/30/2024 5:55 PM CDT 09/30/2024 5:57 PM CDT Radha Casas DO LAB MICROBIOLOGY - GENERAL ORDE RABLES Final Result Performing Organization Address [facility] Co de Phone Number NEEL [address] [place] [address] * (ABNORMAL) Urinalysis, microscopic only (09/30/2024 5:55 PM CDT) WBC, ur 6-10(A) 0 - 5 /HPF Comment:Testing performed by : [address] [address] RBC, ur 3-5(A) 0 - 2 /HPF NEEL Comment:Testing performed by : [address] [address] Epithelial cells, squamous, ur 6-10(A) 0 - 5 /HPF NEEL Comment:Testing performed by : [address] [address] Mucous, ur Present(A) NEEL Comment:Testing performed by : [address] [address] Culture Reflex Comment Reflex conditions for urine culture (WBC >10) not met. NEEL Comment:Testing performed by : [address] [address] Urine 09/30/2024 5:55 PM CDT 09/30/2024 5:57 PM CDT Radha Casas DO LAB URINE ORDERABLES Final Resu lt Performing Organization Address [facility]/ZIP Co de Phone Number QUINTEN[address] [place] [address] * eGFR (09/30/2024 4:01 PM CDT) eGFR [...] was last reviewed 2021. Testing performed by: [address] [address] Blood 09/30/2024 4:01 PM CDT 09/30/2024 4:06 PM CDT us Radha Casas DO LAB BLOOD ORDERABLES Final Resu lt NEEL [address] [facility] Department of Laboratories [place], [place] [id number] * Differential, auto (09/30/2024 4:01 PM CDT) Pathologist [facility] Neutrophil abs 5.11 1.50 - 6.50 K/cumm Comment:Testing performed by : [address] [address] Imm gran abs 0.04 0.00 - 0.10 K/cumm NEEL SMITH Comment:Testing performed by : [address] [address] Lymphocyte abs 1.62 0.80 - 3.30 K/cumm NEEL SMITH Comment:Testing performed by : [address] [address] Monocyte abs 0.77 0.20 - 0.80 K/cumm [facility] Comment:Testing performed by : [address] [address] Eosinophil abs 0.18 0.00 - 0.50 K/cumm [facility] Comment:Testing performed by : [address] [address] Basophil abs 0.05 0.00 - 0.10 K/cumm [facility] Comment:Testing performed by : [address] [address] Neutrophil pct 65.9 % [facility] Comment: Interpretive Data Percent cell count reference ranges are not reported, since discordance with absolute values may lead to misinterpretation of CBC data. Current Interpretive Data was last revised on 2017. Testing performed by: [address] [address] Imm gran pct 0.5 % [facility] Comment: Interpretive Data Percent cell count reference ranges are not reported, since discordance with absolute values may lead to misinterpretation of CBC data. Current Interpretive Data was last revised on 2017. Testing performed by: [address] [address] Lymphocyte pct 20.8 % [facility] Comment: Interpretive Data Percent cell count reference ranges are not reported, since discordance with absolute values may lead to misinterpretation of CBC data. Current Interpretive Data was last revised on 2017. Testing performed by: [address] [address] Monocyte pct 9.9 % [facility] Comment: Interpretive Data Percent cell count reference ranges are not reported, since discordance with absolute values may lead to misinterpretation of CBC data. Current Interpretive Data was last revised on 2017. Testing performed by: [address] [address] Eosinophil pct 2.3 % [facility] Comment: Interpretive Data Percent cell count reference ranges are not reported, since discordance with absolute values may lead to misinterpretation of CBC data. Current Interpretive Data was last revised on 2017. Testing performed by: [address] [address] Basophil pct 0.6 % NEEL Comment: Interpretive Data Percent cell count reference ranges are not reported, since discordance with absolute values may lead to misinterpretation of CBC data. Current Interpretive Data was last revised on 2017. Testing performed by: [address] [address] Blood 09/30/2024 4:01 PM CDT 09/30/2024 4:06 PM CDT us Radha Casas DO LAB BLOOD ORDERABLES Final Resu lt NEEL [address] [facility] Department of Laboratories [place], [place] [id number] * (ABNORMAL) CBC with auto differential (09/30/2024 4:01 PM CDT) WBC 7.77 3.80 - 9.90 K/cumm Comment:Testing performed by : [address] [address] Hgb 14.5 13.0 - 17.5 g/dL NEEL Comment:Testing performed by : [address] [address] Hct 43.0 38.9 - 50.3 % NEEL Comment:Testing performed by : [address] [address] Plt 278 150 - 400 K/cumm NEEL Comment:Testing performed by : [address] [address] MPV 9.8 9.1 - 12.3 fL NEEL Comment:Testing performed by : [address] [address] RBC 5.18 4.30 - 5.80 M/cumm NEEL SMITH Comment:Testing performed by : [address] [address] MCV 83.0 81.3 - 96.4 fL NEEL Comment:Testing performed by : [address] [address] MCH 28.0 27.1 - 33.3 pg NEEL SMITH Comment:Testing performed by : [address] [address] MCHC 33.7 32.3 - 35.7 g/dL NEEL SMITH Comment:Testing performed by : [address] [address] RDW CV 15.3(H) 11.1 - 14.9 % NEEL SMITH Comment:Testing performed by : [address] [address] RDW SD 46.4 35.7 - 48.1 fL NEEL SMITH Comment:Testing performed by : [address] [address] NRBC abs 0.00 0.00 - 0.01 K/cumm NEEL SMITH Comment:Testing performed by : [address] [address] Blood Venous blood specimen / Unknown 09/30/2024 4:01 PM CDT 09/30/2024 4:06 PM CDT Radha Casas LAB BLOOD ORDERABLES Final Resu lt Performing Organization Address City/[facility]/ZIP Co de Phone Number [address] [employer] [place] [address] * Lipase (09/30/2024 4:01 PM CDT) Lipase 51 10 - 99 Units/L Comment:Testing performed by : [address] [address] Blood Venous blood specimen / Unknown 09/30/2024 4:01 PM CDT 09/30/2024 4:06 PM CDT Radha Casas LAB BLOOD ORDERABLES Final Resu lt Performing Organization Address City/[facility]/ZIP Co de Phone Number [address] [employer] [place] [address] * Comprehensive metabolic panel (09/30/2024 4:01 PM CDT) Sodium 141 135 - 145 mmol/L Comment:Testing performed by : [address] [place] [address], [place]., [address] Potassium, pl 4.0 3.3 - 4.9 mmol/L NEEL Comment:Testing performed by : [address] [place] [address], [place]., [address] Chloride 106 97 - 110 mmol/L NEEL Comment:Testing performed by : [address], [place]., [address] CO2 24 22 - 32 mmol/L NEEL Comment:Testing performed by : [address], [place]., [address] Anion gap 11 2 - 15 mmol/L NEEL Comment:Testing performed by : [address], [place]., [address] BUN 9 6 - 25 mg/dL NEEL Comment:Testing performed by : [address], [place]., [address] Creatinine 1.00 0.80 - 1.30 mg/dL NEEL Comment:Testing performed by : [address], [place]., [address] Glucose 107 70 - 199 mg/dL NEEL [...] was last revised 2022. Testing performed by: [address] [address] Calcium 9.6 8.5 - 10.3 mg/dL NEEL Comment:Testing performed by : [address], [place]., [address] Bilirubin, total 0.4 0.1 - 1.2 mg/dL NEEL SMITH Comment:Testing performed by : [address] [address] Protein, pl 7.1 6.5 - 8.5 g/dL NEEL SMITH Comment:Testing performed by : [address] [address] Albumin 4.3 3.5 - 5.0 g/dL NEEL SMITH Comment:Testing performed by : [address] [address] Alk phos 87 40 - 130 Units/L NEEL Comment:Testing performed by : [address] [address] ALT 25 7 - 55 Units/L NEEL SMITH Comment:Testing performed by : [address] [address] AST 25 10 - 50 Units/L NEEL Comment:Testing performed by : [address] [address] Blood 09/30/2024 4:01 PM CDT 09/30/2024 4:06 PM CDT us Radha Casas DO LAB BLOOD ORDERABLES Final Resu lt NEEL SMITH [address] [facility] [place] [address] * CT Abdomen Pelvis W Contrast (08/16/2024 4:01 AM CDT) Anatomical Region Laterality Modality Body N/A Computed Tomogra phy 08/16/2024 8:08 AM CDT Impressions 08/16/2024 8:36 AM CDT Markedly distended stomach with ingested contents without evidence of obstructing lesion. Preliminary results were given by the tele-radiologist steam bone press tender Dr. Olivera Dictated by: Mario Newsome MD [...] Preliminary results were given by the tele-radiologist steam bone press tender Dr. Olivera Dictated by: Mario Newsome MD [...] Burgess MD LAB BLOOD ORDERABLES Final [facility] [address] [facility]. Department [place] [employer] [place] [address] * (ABNORMAL) Differential, auto (08/16/2024 3:42 AM CDT) Neutrophil abs 14.88(H) 1.50 - 6.50 K/cumm Imm gran abs 0.10 0.00 - 0.10 K/cumm NEEL REESECH Lymphocyte abs 1.94 0.80 - 3.30 K/cumm [facility] Monocyte abs 1.47(H) 0.20 - 0.80 K/cumm [facility] Eosinophil abs 0.16 0.00 - 0.50 K/cumm [facility] Basophil abs 0.09 0.00 - 0.10 K/cumm [facility] Neutrophil pct 79.8 % [facility] Comment: Interpretive Data Percent cell count reference ranges are not reported, since discordance with absolute values may lead to misinterpretation of CBC data. Current Interpretive Data was last revised on 2017. Imm gran pct 0.5 % NEEL [facility] Comment: Interpretive Data Percent cell count reference ranges are not reported, since discordance with absolute values may lead to misinterpretation of CBC data. Current Interpretive Data was last revised on 2017. Lymphocyte pct 10.4 % NEEL [facility] Comment: Interpretive Data Percent cell count reference ranges are not reported, since discordance with absolute values may lead to misinterpretation of CBC data. Current Interpretive Data was last revised on 2017. Monocyte pct 7.9 % NEEL [facility] Comment: Interpretive Data Percent cell count reference ranges are not reported, since discordance with absolute values may lead to misinterpretation of CBC data. Current Interpretive Data was last revised on 2017. Eosinophil pct 0.9 % NEEL [facility] Comment: Interpretive Data Percent cell count reference ranges are not reported, since discordance with absolute values may lead to misinterpretation of CBC data. Current Interpretive Data was last revised on 2017. Basophil pct 0.5 % NEEL [facility] Comment: Interpretive Data Percent cell count reference ranges are not reported, since discordance with absolute values may lead to misinterpretation of CBC data. Current Interpretive Data was last revised on 2017. Blood 08/16/2024 3:42 AM CDT 08/16/2024 4:15 AM CDT us Ashlie Burgess MD LAB BLOOD ORDERABLES Final Result NEEL REESE [address] Department [place] [address] * (ABNORMAL) CBC with auto differential (08/16/2024 3:42 AM CDT) Pathologist [facility] WBC 18.64(H) 3.80 - 9.90 K/cumm Hgb 14.6 13.0 - 17.5 g/dL [facility] Hct 43.6 38.9 - 50.3 % [facility] Plt 325 150 - 400 K/cumm [facility] MPV 10.0 9.1 - 12.3 fL [facility] RBC 5.23 4.30 - 5.80 M/cumm [facility] MCV 83.4 81.3 - 96.4 fL [facility] MCH 27.9 27.1 - 33.3 pg [facility] MCHC 33.5 32.3 - 35.7 g/dL [facility] RDW CV 15.9(H) 11.1 - 14.9 % [facility] RDW SD 48.6(H) 35.7 - 48.1 fL [facility] NRBC abs 0.00 0.00 - 0.01 K/cumm [facility] Blood Venous blood specimen / Unknown 08/16/2024 3:42 AM CDT 08/16/2024 4:15 AM CDT Ashlie Burgess MD LAB BLOOD ORDERABLES Final Result [facility] [address] [facility] [employer] [place] [address] * Lipase (08/16/2024 3:42 AM CDT) [facility] Lipase 32 10 - 99 Units/L Blood Venous blood specimen / Unknown 08/16/2024 3:42 AM CDT 08/16/2024 4:15 AM CDT Ashlie Burgess MD LAB BLOOD ORDERABLES Final Result NEEL GUZMÁN [address] [employer] Department [place] [address] * Comprehensive metabolic panel (08/16/2024 3:42 AM [...] LAB BLOOD ORDERABLES Final Result NEEL [facility] [address] [facility]. [place] [employer] [place] [address] * Sepsis Lactate w/ Reflex (08/13/2024 5:52 PM CDT) Sepsis Lactate 1.1 0.7 - 2.0 mmol/L Blood 08/13/2024 5:52 PM CDT 08/13/2024 5:58 PM CDT us Crista Bower MD LAB BLOOD ORDERABLES Final Result NEEL [facility] [address] [facility] [employer] [place] [address] * eGFR (08/13/2024 4:29 PM CDT) eGFR [...] MD LAB BLOOD ORDERABLES Final Result NEEL [facility] [address] [facility] [employer] [place] [address] * (ABNORMAL) Differential, auto (08/13/2024 4:29 PM CDT) Neutrophil abs 15.65(H) 1.50 - 6.50 K/cumm Imm gran abs 0.09 0.00 - 0.10 K/cumm [facility] Lymphocyte abs 1.38 0.80 - 3.30 K/cumm [facility] Monocyte abs 1.33(H) 0.20 - 0.80 K/cumm [facility] Eosinophil abs 0.09 0.00 - 0.50 K/cumm [facility] Basophil abs 0.05 0.00 - 0.10 K/cumm [facility] Neutrophil pct 84.1 % [facility] Comment: Interpretive Data Percent cell count reference ranges are not reported, since discordance with absolute values may lead to misinterpretation of CBC data. Current Interpretive Data was last revised on 2017. Imm gran pct 0.5 % [facility] Comment: Interpretive Data Percent cell count reference ranges are not reported, since discordance with absolute values may lead to misinterpretation of CBC data. Current Interpretive Data was last revised on 2017. Lymphocyte pct 7.4 % [facility] Comment: Interpretive Data Percent cell count reference ranges are not reported, since discordance with absolute values may lead to misinterpretation of CBC data. Current Interpretive Data was last revised on 2017. Monocyte pct 7.2 % [facility] Comment: Interpretive Data Percent cell count reference ranges are not reported, since discordance with absolute values may lead to misinterpretation of CBC data. Current Interpretive Data was last revised on 2017. Eosinophil pct 0.5 % [facility] Comment: Interpretive Data Percent cell count reference ranges are not reported, since discordance with absolute values may lead to misinterpretation of CBC data. Current Interpretive Data was last revised on 2017. Basophil pct 0.3 % [facility] Comment: Interpretive Data Percent cell count reference ranges are not reported, since discordance with absolute values may lead to misinterpretation of CBC data. Current Interpretive Data was last revised on 2017. Blood 08/13/2024 4:29 PM CDT 08/13/2024 4:38 PM CDT us Crista Bower MD LAB BLOOD ORDERABLES Final Result Performing Organization Address [facility]/ZIP Co de Phone Number [facility] [address] Department [place] [employer] [place] [address] * (ABNORMAL) CBC with auto differential (08/13/2024 4:29 PM CDT) WBC 18.59(H) 3.80 - 9.90 K/cumm Hgb 14.6 13.0 - 17.5 g/dL [facility] Hct 43.7 38.9 - 50.3 % [facility] Plt 335 150 - 400 K/cumm [facility] MPV 10.0 9.1 - 12.3 fL [facility] RBC 5.15 4.30 - 5.80 M/cumm [facility] MCV 84.9 81.3 - 96.4 fL [facility] MCH 28.3 27.1 - 33.3 pg [facility] MCHC 33.4 32.3 - 35.7 g/dL [facility] RDW CV 15.9(H) 11.1 - 14.9 % [facility] RDW SD 49.5(H) 35.7 - 48.1 fL [facility] NRBC abs 0.00 0.00 - 0.01 K/cumm [facility] Blood Venous blood specimen / Unknown 08/13/2024 4:29 PM CDT 08/13/2024 4:38 PM CDT us Crista Bower MD LAB BLOOD ORDERABLES Final Result [facility] [address] Department [employer] [place] [address] * Lipase (08/13/2024 4:29 PM CDT) Lipase 20 10 - 99 Units/L Blood Venous blood specimen / Unknown 08/13/2024 4:29 PM CDT 08/13/2024 4:38 PM CDT us Crista Bower MD LAB BLOOD ORDERABLES Final Result [facility] [address] Department [place] [address] * (ABNORMAL) Comprehensive metabolic panel (08/13/2024 4:29 PM CDT) [facility] Sodium 138 135 - 145 mmol/L Potassium, pl 4.0 3.3 - 4.9 mmol/L [facility] Chloride 104 97 - 110 mmol/L [facility] CO2 21(L) 22 - 32 mmol/L [facility] Anion gap 13 2 - 15 mmol/L [facility] BUN 8 6 - 25 mg/dL [facility] Creatinine 0.91 0.80 - 1.30 mg/dL [facility] Glucose 118 70 - 199 mg/dL [facility] Comment: Interpretive Data Fasting glucose >/= 126 [...] 2022. Calcium 9.3 8.5 - 10.3 mg/dL [facility] Bilirubin, total 0.4 0.1 - 1.2 mg/dL [facility] Protein, pl 7.2 6.5 - 8.5 g/dL [facility] Albumin 4.1 3.5 - 5.0 g/dL [facility] Alk phos 86 40 - 130 Units/L [facility] ALT 25 7 - 55 Units/L [facility] AST 22 10 - 50 Units/L [facility] Blood 08/13/2024 4:29 PM CDT 08/13/2024 4:38 PM CDT us Crista Bower MD LAB BLOOD ORDERABLES Final Result Performing Organization Address [facility] Co de Phone Number [facility] [address] Department [place] [address] * eGFR (08/12/2024 10:58 AM CDT) eGFR [...] ORDERABLES Final R esult Performing Organization Address [facility]/ZIP Co de Phone Number [facility] [address] Department of Laboratories [place], [place] [id number] * (ABNORMAL) CBC without differential (08/12/2024 10:58 AM CDT) WBC 7.15 3.80 - 9.90 K/cumm Hgb 13.4 13.0 - 17.5 g/dL [facility] Hct 41.3 38.9 - 50.3 % [facility] Plt 301 150 - 400 K/cumm [facility] MPV 10.1 9.1 - 12.3 fL [facility] RBC 4.81 4.30 - 5.80 M/cumm [facility] MCV 85.9 81.3 - 96.4 fL [facility] MCH 27.9 27.1 - 33.3 pg [facility] MCHC 32.4 32.3 - 35.7 g/dL [facility] RDW CV 16.1(H) 11.1 - 14.9 % [facility] RDW SD 50.2(H) 35.7 - 48.1 fL [facility] NRBC abs 0.00 0.00 - 0.01 K/cumm [facility] Blood 08/12/2024 10:5 8 AM CDT 08/12/2024 11:33 AM CDT us Reinaldo Avitia MD LAB BLOOD ORDERABLES Final R esult [facility] [address] [place] [address] * (ABNORMAL) Basic metabolic panel (08/12/2024 10:58 AM CDT) Sodium 139 135 - 145 mmol/L Potassium, pl 4.3 3.3 - 4.9 mmol/L [facility] Chloride 105 97 - 110 mmol/L [facility] CO2 21(L) 22 - 32 mmol/L [facility] Anion gap 13 2 - 15 mmol/L [facility] BUN 6 6 - 25 mg/dL [facility] Creatinine 0.92 0.80 - 1.30 mg/dL [facility] Glucose 130 70 - 199 mg/dL [facility] Comment: Interpretive Data Fasting glucose >/= 126 [...] Calcium 8.7 8.5 - 10.3 mg/dL NEEL [facility] Blood 08/12/2024 10:5 8 AM CDT 08/12/2024 11:33 AM CDT us Reinaldo Avitia MD LAB BLOOD ORDERABLES Final R esult [facility] [address] Department [place] [address] * EGD (08/11/2024 3:25 PM CDT) Anatomical Region Laterality Modality Other Narrative Procedure Note Georges Luna MD - 08/11/2024 3:25 PM CDT ENDOSCOPY LAB Patient Name: Donovan Bailey Procedure Date: 08/11/2024 3:25 PM Admit Type: Inpatient Room: [facility] Date of : 1980 Instrument [...] DO LAB BLOOD ORDERABLES F inal Result [facility] [address] [place] [address] * (ABNORMAL) Differential, auto (08/11/2024 6:15 AM CDT) Neutrophil abs 2.30 1.50 - 6.50 K/cumm Imm gran abs 0.01 0.00 - 0.10 K/cumm [facility] Lymphocyte abs 3.06 0.80 - 3.30 K/cumm [facility] Monocyte abs 0.99(H) 0.20 - 0.80 K/cumm [facility] Eosinophil abs 0.24 0.00 - 0.50 K/cumm [facility] Basophil abs 0.06 0.00 - 0.10 K/cumm [facility] Neutrophil pct 34.5 % [facility] Comment: Interpretive Data Percent cell count reference ranges are not reported, since discordance with absolute values may lead to misinterpretation of CBC data. Current Interpretive Data was last revised on 2017. Imm gran pct 0.2 % [facility] Comment: Interpretive Data Percent cell count reference ranges are not reported, since discordance with absolute values may lead to misinterpretation of CBC data. Current Interpretive Data was last revised on 2017. Lymphocyte pct 45.9 % [facility] Comment: Interpretive Data Percent cell count reference ranges are not reported, since discordance with absolute values may lead to misinterpretation of CBC data. Current Interpretive Data was last revised on 2017. Monocyte pct 14.9 % [facility] Comment: Interpretive Data Percent cell count reference ranges are not reported, since discordance with absolute values may lead to misinterpretation of CBC data. Current Interpretive Data was last revised on 2017. Eosinophil pct 3.6 % [facility] Comment: Interpretive Data Percent cell count reference ranges are not reported, since discordance with absolute values may lead to misinterpretation of CBC data. Current Interpretive Data was last revised on 2017. Basophil pct 0.9 % [facility] Comment: Interpretive Data Percent cell count reference ranges are not reported, since discordance with absolute values may lead to misinterpretation of CBC data. Current Interpretive Data was last revised on 2017. Blood 08/11/2024 6:15 AM CDT 08/11/2024 6:54 AM CDT us Chris Villatoro DO LAB BLOOD ORDERABLES F inal Result [facility] [address] Department [place] [address] * (ABNORMAL) CBC with auto differential (08/11/2024 6:15 AM CDT) WBC 6.66 3.80 - 9.90 K/cumm Hgb 12.2(L) 13.0 - 17.5 g/dL [facility] Hct 37.8(L) 38.9 - 50.3 % [facility] Plt 274 150 - 400 K/cumm [facility] MPV 10.2 9.1 - 12.3 fL [facility] RBC 4.38 4.30 - 5.80 M/cumm [facility] MCV 86.3 81.3 - 96.4 fL [facility] MCH 27.9 27.1 - 33.3 pg [facility] MCHC 32.3 32.3 - 35.7 g/dL [facility] RDW CV 16.3(H) 11.1 - 14.9 % [facility] RDW SD 51.3(H) 35.7 - 48.1 fL [facility] NRBC abs 0.00 0.00 - 0.01 K/cumm [facility] Blood 08/11/2024 6:15 AM CDT 08/11/2024 6:54 AM CDT Chris Julian Cassandralewis LAB BLOOD ORDERABLES F inal Result Performing Organization Address [facility] Co de Phone Number [facility] [address] Department [employer] [place] [address] * Magnesium (08/11/2024 6:15 AM CDT) [facility] Magnesium 2.2 1.4 - 2.5 mg/dL Blood 08/11/2024 6:15 AM CDT 08/11/2024 6:53 AM CDT Chris Villatoro LAB BLOOD ORDERABLES F inal Result Performing Organization Address [facility] de Phone Number [facility] [address] [employer] [place], [place] [id number] * Basic metabolic panel (08/11/2024 6:15 AM CDT) [facility] Sodium 139 135 - 145 mmol/L Potassium, pl 4.0 3.3 - 4.9 mmol/L [facility] Chloride 107 97 - 110 mmol/L [facility] CO2 24 22 - 32 mmol/L [facility] Anion gap 8 2 - 15 mmol/L [facility] BUN 6 6 - 25 mg/dL [facility] Creatinine 0.81 0.80 - 1.30 mg/dL [facility] Glucose 88 70 - 199 mg/dL [facility] Comment: Interpretive Data Fasting glucose >/= 126 [...] Calcium 8.5 8.5 - 10.3 mg/dL NEEL [facility] Blood 08/11/2024 6:15 AM CDT 08/11/2024 6:53 AM CDT us Chris Villatoro DO LAB BLOOD ORDERABLES F inal Result [facility] [address] Department [place] [address] * CT Abdomen Pelvis W Contrast (08/10/2024 [...] findings as above. For the purposes of manager of quality, this study was initially interpreted by teleradiology. [...] findings as above. For the purposes of manager of quality, this study was initially interpreted by teleradiology. [...] LAB BLOOD ORDERABLES Final R esult NEEL [facility] [address] Department [place] [address] * (ABNORMAL) Differential, auto (08/10/2024 3:54 AM CDT) Neutrophil abs 18.28(H) 1.50 - 6.50 K/cumm Imm gran abs 0.10 0.00 - 0.10 K/cumm [facility] Lymphocyte abs 1.52 0.80 - 3.30 K/cumm [facility] Monocyte abs 1.50(H) 0.20 - 0.80 K/cumm [facility] Eosinophil abs 0.12 0.00 - 0.50 K/cumm [facility] Basophil abs 0.08 0.00 - 0.10 K/cumm [facility] Neutrophil pct 84.6 % [facility] Comment: Interpretive Data Percent cell count reference ranges are not reported, since discordance with absolute values may lead to misinterpretation of CBC data. Current Interpretive Data was last revised on 2017. Imm gran pct 0.5 % [facility] Comment: Interpretive Data Percent cell count reference ranges are not reported, since discordance with absolute values may lead to misinterpretation of CBC data. Current Interpretive Data was last revised on 2017. Lymphocyte pct 7.0 % [facility] Comment: Interpretive Data Percent cell count reference ranges are not reported, since discordance with absolute values may lead to misinterpretation of CBC data. Current Interpretive Data was last revised on 2017. Monocyte pct 6.9 % [facility] Comment: Interpretive Data Percent cell count reference ranges are not reported, since discordance with absolute values may lead to misinterpretation of CBC data. Current Interpretive Data was last revised on 2017. Eosinophil pct 0.6 % [facility] Comment: Interpretive Data Percent cell count reference ranges are not reported, since discordance with absolute values may lead to misinterpretation of CBC data. Current Interpretive Data was last revised on 2017. Basophil pct 0.4 % [facility] Comment: Interpretive Data Percent cell count reference ranges are not reported, since discordance with absolute values may lead to misinterpretation of CBC data. Current Interpretive Data was last revised on 2017. Blood 08/10/2024 3:54 AM CDT 08/10/2024 4:06 AM CDT us Domenic Arias MD LAB BLOOD ORDERABLES Final R esult [facility] [address] [place] [address] * (ABNORMAL) CBC with auto differential (08/10/2024 3:54 AM CDT) [facility] WBC 21.60(H) 3.80 - 9.90 K/cumm Hgb 14.0 13.0 - 17.5 g/dL [facility] Hct 43.0 38.9 - 50.3 % [facility] Plt 333 150 - 400 K/cumm [facility] MPV 10.0 9.1 - 12.3 fL [facility] RBC 5.07 4.30 - 5.80 M/cumm [facility] MCV 84.8 81.3 - 96.4 fL [facility] MCH 27.6 27.1 - 33.3 pg [facility] MCHC 32.6 32.3 - 35.7 g/dL [facility] RDW CV 16.4(H) 11.1 - 14.9 % [facility] RDW SD 50.1(H) 35.7 - 48.1 fL [facility] NRBC abs 0.00 0.00 - 0.01 K/cumm [facility] Blood Venous blood specimen / Unknown 08/10/2024 3:54 AM CDT 08/10/2024 4:06 AM CDT Domenic Arias MD LAB BLOOD ORDERABLES Final R esult [facility] [address] Department [place] [employer] [place] [address] * Lipase (08/10/2024 3:54 AM CDT) [facility] Lipase 27 10 - 99 Units/L Blood Venous blood specimen / Unknown 08/10/2024 3:54 AM CDT 08/10/2024 4:06 AM CDT Domenic Arias MD LAB BLOOD ORDERABLES Final R esult [facility] [address] Department [place] [address] * (ABNORMAL) Comprehensive metabolic panel (08/10/2024 3:54 AM CDT) Sodium 132(L) 135 - 145 mmol/L Potassium, pl 3.9 3.3 - 4.9 mmol/L [facility] Chloride 96(L) 97 - 110 mmol/L [facility] CO2 20(L) 22 - 32 mmol/L [facility] Anion gap 16(H) 2 - 15 mmol/L [facility] BUN 7 6 - 25 mg/dL [facility] Creatinine 0.95 0.80 - 1.30 mg/dL [facility] Glucose 124 70 - 199 mg/dL [facility] Comment: Interpretive Data Fasting glucose >/= 126 [...] 2022. Calcium 9.2 8.5 - 10.3 mg/dL [facility] Bilirubin, total 0.4 0.1 - 1.2 mg/dL [facility] Protein, pl 7.1 6.5 - 8.5 g/dL [facility] Albumin 4.5 3.5 - 5.0 g/dL [facility] Alk phos 81 40 - 130 Units/L [facility] ALT 23 7 - 55 Units/L [facility] AST 24 10 - 50 Units/L [facility] Comment:Slightly Hemolyzed S pecimen Blood 08/10/2024 3:54 AM CDT 08/10/2024 4:06 AM CDT Domenic Arias MD LAB BLOOD ORDERABLES Final R esult [facility] [address] Department [place] [address] * eGFR (08/07/2024 3:20 AM CDT) Pathologist [facility] eGFR >90 >=60 mL/min/1. 73 m2 [...] MD LAB BLOOD ORDERABLES Fi nal [facility] [address] Department [place] [address] * (ABNORMAL) Differential, auto (08/07/2024 3:20 AM CDT) Pathologist [facility] Neutrophil abs 8.4(H) 1.5 - 6.5 K/cumm Imm gran abs 0.0 0.0 - 0.1 K/cumm [facility] Lymphocyte abs 1.5 0.8 - 3.3 K/cumm [facility] Monocyte abs 1.3(H) 0.2 - 0.8 K/cumm [facility] Eosinophil abs 0.1 0.0 - 0.5 K/cumm [facility] Basophil abs 0.1 0.0 - 0.1 K/cumm [facility] Neutrophil pct 74.1 % [facility] Comment: Interpretive Data Percent cell count reference ranges are not reported, since discordance with absolute values may lead to misinterpretation of CBC data. Current Interpretive Data was last revised on 2017. Imm gran pct 0.4 % [facility] Comment: Interpretive Data Percent cell count reference ranges are not reported, since discordance with absolute values may lead to misinterpretation of CBC data. Current Interpretive Data was last revised on 2017. Lymphocyte pct 13.4 % [facility] Comment: Interpretive Data Percent cell count reference ranges are not reported, since discordance with absolute values may lead to misinterpretation of CBC data. Current Interpretive Data was last revised on 2017. Monocyte pct 11.3 % [facility] Comment: Interpretive Data Percent cell count reference ranges are not reported, since discordance with absolute values may lead to misinterpretation of CBC data. Current Interpretive Data was last revised on 2017. Eosinophil pct 0.4 % [facility] Comment: Interpretive Data Percent cell count reference ranges are not reported, since discordance with absolute values may lead to misinterpretation of CBC data. Current Interpretive Data was last revised on 2017. Basophil pct 0.4 % [facility] Comment: Interpretive Data Percent cell count reference ranges are not reported, since discordance with absolute values may lead to misinterpretation of CBC data. Current Interpretive Data was last revised on 2017. Blood 08/07/2024 3:20 AM CDT 08/07/2024 3:44 AM CDT us Justice Patel MD LAB BLOOD ORDERABLES Fi nal Result [facility] [address] Department [place] [address] * (ABNORMAL) CBC with auto differential (08/07/2024 3:20 AM CDT) WBC 11.3(H) 3.8 - 9.9 K/cumm Hgb 12.9(L) 13.0 - 17.5 g/dL [facility] Hct 39.6 38.9 - 50.3 % [facility] Plt 294 150 - 400 K/cumm [facility] MPV 9.8 9.1 - 12.3 fL [facility] RBC 4.63 4.30 - 5.80 M/cumm [facility] MCV 85.5 81.3 - 96.4 fL [facility] MCH 27.9 27.1 - 33.3 pg [facility] MCHC 32.6 32.3 - 35.7 g/dL [facility] RDW CV 16.4(H) 11.1 - 14.9 % [facility] RDW SD 51.0(H) 35.7 - 48.1 fL [facility] NRBC abs 0.00 0.00 - 0.01 K/cumm [facility] Blood 08/07/2024 3:20 AM CDT 08/07/2024 3:44 AM CDT Justice Patel MD LAB BLOOD ORDERABLES Fi nal Result Performing Organization Address [facility] Co de Phone Number [facility] [address] [employer] [place], [place] [id number] * Lipase (08/07/2024 3:20 AM CDT) Pathologist [facility] Lipase 40 10 - 99 Units/L Blood 08/07/2024 3:20 AM CDT 08/07/2024 3:45 AM CDT Justice Patel MD LAB BLOOD ORDERABLES Fi nal Result Performing Organization Address City/[facility]/ZIP Co de Phone Number [facility] [address] [facility] [employer] [place], [place] [id number] * (ABNORMAL) Comprehensive metabolic panel (08/07/2024 3:20 AM CDT) Pathologist [facility] Sodium 138 135 - 145 mmol/L Potassium, pl 3.9 3.3 - 4.9 mmol/L [facility] Chloride 103 97 - 110 mmol/L [facility] CO2 21(L) 22 - 32 mmol/L [facility] Anion gap 14 2 - 15 mmol/L [facility] BUN 9 6 - 25 mg/dL [facility] Creatinine 0.92 0.80 - 1.30 mg/dL [facility] Glucose 107 70 - 199 mg/dL [facility] Comment: Interpretive Data Fasting glucose >/= 126 [...] 2022. Calcium 8.8 8.5 - 10.3 mg/dL [facility] Bilirubin, total 0.6 0.1 - 1.2 mg/dL [facility] Protein, pl 6.3(L) 6.5 - 8.5 g/dL [facility] Albumin 4.1 3.5 - 5.0 g/dL [facility] Alk phos 74 40 - 130 Units/L [facility] ALT 23 7 - 55 Units/L [facility] AST 24 10 - 50 Units/L [facility] Comment:Slightly Hemolyzed S pecimen Blood 08/07/2024 3:20 AM CDT 08/07/2024 3:45 AM CDT us Justice Patel MD LAB BLOOD ORDERABLES Fi nal Result [facility] [address] Department [place] [address] * SCAN - RADIOLOGY/IMAGING (08/05/2024) Anatomical Region Laterality Modality Other us Provider Scanning Final Result * Urinalysis reflex to microscopic and culture Urine (08/03/2024 1:50 PM CDT) Color, ur Yellow Yellow Comment:Testing performed by : [address] [address] Clarity, ur Clear Clear NEEL Comment:Testing performed by : [address], [place]., [address] Specific gravity, ur 1.009 1.003 - 1.030 NEEL Comment:Testing performed by : [address] [address] pH, urine 7.0 NEEL Comment: Interpretive Data U rine pH is affected by diet, medications, systemic acid-base disturbances, and renal tubular function. pH may affect urinary stone formation. For example, urine pH below 6.0 may help reduce the tendency for calcium phosphate stones and pH greater than 6.0 may reduce the tendency for uric acid stone formation. Source: [facility] [employer] Current Interpretive Data was last revised on 2017 Testing performed by: [address] [address] Protein, ur ql Negative Negative NEEL Comment:Testing performed by : [address] [address] Glucose, ur ql Negative Negative NEEL Comment:Testing performed by : [address] [address] Ketones, ur Negative Negative NEEL Comment:Testing performed by : [address] [address] Bilirubin, ur Negative Negative NEEL Comment:Testing performed by : [address] [address] Blood, ur Negative Negative NEEL Comment:Testing performed by : [address], [place]., [address] Urobilinogen, ur <2.0 <2.0 mg/dL NEEL Comment:Testing performed by : [address] [address] Nitrite, ur Negative Negative NEEL Comment:Testing performed by : [address] [address] Leukocyte esterase, ur Negative Negative NEEL Comment:Testing performed by : [facility], [address] [place] [address]., [address] UA reflex comment Reflex conditions for microscopic UA and culture not met. NEEL Comment:Testing performed by : [address] [address] Urine 08/03/2024 1:50 PM CDT 08/03/2024 1:53 PM CDT Freddy Yao DO LAB MICROBIOLOGY - GENERAL ORDERABLES Final Result Performing Organization Address City/[facility]/ZIP Co de Phone Number NEEL [address] [place] [address] * eGFR (08/03/2024 1:45 PM [...] was last reviewed 2021. Testing performed by: [address] [address] Blood 08/03/2024 1:45 PM CDT 08/03/2024 1:53 PM CDT Freddy Yao DO LAB BLOOD ORDERABLES Final Result Performing Organization Address City/[facility]/ZIP Co de Phone Number NEEL [address] [place] [address] * (ABNORMAL) Differential, auto (08/03/2024 1:45 PM CDT) Neutrophil abs 7.8(H) 1.5 - 6.5 K/cumm Comment:Testing performed by : [address] [address] Imm gran abs 0.1 0.0 - 0.1 K/cumm NEEL Comment:Testing performed by : [address] [address] Lymphocyte abs 2.5 0.8 - 3.3 K/cumm NEEL Comment:Testing performed by : [address] [address] Monocyte abs 1.4(H) 0.2 - 0.8 K/cumm NEEL Comment:Testing performed by : [address] [address] Eosinophil abs 0.1 0.0 - 0.5 K/cumm NEEL Comment:Testing performed by : [address] [address] Basophil abs 0.1 0.0 - 0.1 K/cumm NEEL Comment:Testing performed by : [address] [address] Neutrophil pct 65.5 % NEEL Comment: Interpretive Data Percent cell count reference ranges are not reported, since discordance with absolute values may lead to misinterpretation of CBC data. Current Interpretive Data was last revised on 2017. Testing performed by: [address] [address] Imm gran pct 0.5 % NEEL Comment: Interpretive Data Percent cell count reference ranges are not reported, since discordance with absolute values may lead to misinterpretation of CBC data. Current Interpretive Data was last revised on 2017. Testing performed by: [address] [address] Lymphocyte pct 21.0 % NEEL Comment: Interpretive Data Percent cell count reference ranges are not reported, since discordance with absolute values may lead to misinterpretation of CBC data. Current Interpretive Data was last revised on 2017. Testing performed by: [address] [address] Monocyte pct 11.6 % NEEL Comment: Interpretive Data Percent cell count reference ranges are not reported, since discordance with absolute values may lead to misinterpretation of CBC data. Current Interpretive Data was last revised on 2017. Testing performed by: [address] [address] Eosinophil pct 0.8 % NEEL Comment: Interpretive Data Percent cell count reference ranges are not reported, since discordance with absolute values may lead to misinterpretation of CBC data. Current Interpretive Data was last revised on 2017. Testing performed by: [address] [address] Basophil pct 0.6 % NEEL Comment: Interpretive Data Percent cell count reference ranges are not reported, since discordance with absolute values may lead to misinterpretation of CBC data. Current Interpretive Data was last revised on 2017. Testing performed by: [address] [address] Blood 08/03/2024 1:45 PM CDT 08/03/2024 1:53 PM CDT us Freddy Yao DO LAB BLOOD ORDERABLES Final Result [facility] [address] [facility] [place] [address] * (ABNORMAL) CBC with auto differential (08/03/2024 1:45 PM CDT) WBC 11.9(H) 3.8 - 9.9 K/cumm Comment:Testing performed by : [address] [address] Hgb 13.3 13.0 - 17.5 g/dL NEEL Comment:Testing performed by : [address] [address] Hct 40.4 38.9 - 50.3 % NEEL Comment:Testing performed by : [address] [address] Plt 333 150 - 400 K/cumm NEEL Comment:Testing performed by : [address] [address] MPV 10.3 9.1 - 12.3 fL NEEL Comment:Testing performed by : [address] [address] RBC 4.81 4.30 - 5.80 M/cumm NEEL Comment:Testing performed by : [address] [address] MCV 84.0 81.3 - 96.4 fL NEEL Comment:Testing performed by : [address] [address] MCH 27.7 27.1 - 33.3 pg NEEL Comment:Testing performed by : [address] [address] MCHC 32.9 32.3 - 35.7 g/dL NEEL Comment:Testing performed by : [address] [address] RDW CV 16.4(H) 11.1 - 14.9 % NEEL Comment:Testing performed by : [address] [address] RDW SD 50.0(H) 35.7 - 48.1 fL NEEL Comment:Testing performed by : [address], [address] NRBC abs 0.00 0.00 - 0.01 K/cumm NEEL Comment:Testing performed by : [address], [address] Blood Venous blood specimen / Unknown 08/03/2024 1:45 PM CDT 08/03/2024 1:53 PM CDT Freddy Yao DO LAB BLOOD ORDERABLES Final Result NEEL [address] [place] [address] * Lipase (08/03/2024 1:45 PM CDT) Lipase 58 10 - 99 Units/L Comment:Testing performed by : [address] [address] Blood Venous blood specimen / Unknown 08/03/2024 1:45 PM CDT 08/03/2024 1:53 PM CDT Freddy Yao DO LAB BLOOD ORDERABLES Final Result [facility] [address] [facility] [place] [address] * Comprehensive metabolic panel (08/03/2024 1:45 PM CDT) Pathologist [facility] Sodium 142 135 - 145 mmol/L Comment:Testing performed by : [address] [address] Potassium, pl 3.9 3.3 - 4.9 mmol/L NEEL Comment:Testing performed by : [address] [address] Chloride 108 97 - 110 mmol/L NEEL Comment:Testing performed by : [address] [address] CO2 23 22 - 32 mmol/L NEEL Comment:Testing performed by : [address] [address] Anion gap 11 2 - 15 mmol/L NEEL Comment:Testing performed by : [address] [address] BUN 9 6 - 25 mg/dL NEEL Comment:Testing performed by : [address] [address] Creatinine 0.90 0.80 - 1.30 mg/dL NEEL Comment:Testing performed by : [address] [address] Glucose 107 70 - 199 mg/dL NEEL [...] was last revised 2022. Testing performed by: [address] [address] Calcium 9.4 8.5 - 10.3 mg/dL NEEL Comment:Testing performed by : [address] [address] Bilirubin, total 0.3 0.1 - 1.2 mg/dL NEEL Comment:Testing performed by : [address] [address] Protein, pl 7.1 6.5 - 8.5 g/dL NEEL Comment:Testing performed by : [address] [address] Albumin 4.3 3.5 - 5.0 g/dL NEEL Comment:Testing performed by : [address] [address] Alk phos 80 40 - 130 Units/L NEEL Comment:Testing performed by : [address] [address] ALT 23 7 - 55 Units/L NEEL Comment:Testing performed by : [address] [address] AST 32 10 - 50 Units/L NEEL Comment:Testing performed by : [address] [address] Blood 08/03/2024 1:45 PM CDT 08/03/2024 1:53 PM CDT us Freddy Yao DO LAB BLOOD ORDERABLES Final Result NEEL [address] [facility] [place] [address] * CT Abdomen Pelvis W Contrast (08/02/2024 [...] Priti Salmeron M.D. TW: JENNA Report ID: [id number] Reading Location: [place] [address] Procedure Note Priti Salmeron MD - 08/02/2024 [...] 10:22 AM - Electronically signed by Priti Salemron M.D. TW: JENNA Report ID: [id number] Reading Location: [id number] Vij[facility] PROCEDURES Final Result * (ABNORMAL) Urinalysis reflex to microscopic and culture Urine (08/02/2024 8:48 AM CDT) Color, ur Yellow Yellow Comment:Testing performed by : [facility], [address] [place] [address]., [address] Clarity, ur Clear Clear NEEL Comment:Testing performed by : [address] [address] Specific gravity, ur 1.025 1.003 - 1.030 NEEL Comment:Testing performed by : [facility], [address] [place] [address]., [address] pH, urine 8.0 NEEL Comment: Interpretive Data U rine pH is affected by diet, medications, systemic acid-base disturbances, and renal tubular function. pH may affect urinary stone formation. For example, urine pH below 6.0 may help reduce the tendency for calcium phosphate stones and pH greater than 6.0 may reduce the tendency for uric acid stone formation. Source: [facility] [employer] Current Interpretive Data was last revised on 2017 Testing performed by: [facility], [address] [place] [address], [place]., [address] Protein, ur ql 1+(A) Negative NEEL Comment:Testing performed by : [address], [place]., [address] Glucose, ur ql Trace(A) Negative NEEL Comment:Testing performed by : [address] [address] Ketones, ur 2+(A) Negative NEEL Comment:Testing performed by : [address], [place]., [address] Bilirubin, ur Negative Negative NEEL Comment:Testing performed by : [address], [place]., [address] Blood, ur Negative Negative NEEL Comment:Testing performed by : [address] [address] Urobilinogen, ur <2.0 <2.0 mg/dL NEEL Comment:Testing performed by : [address] [address] Nitrite, ur Negative Negative NEEL Comment:Testing performed by : [address] [address] Leukocyte esterase, ur Negative Negative NEEL Comment:Testing performed by : [address], [place]., [address] UA reflex comment Reflex to microscopic UA will be performed. NEEL Comment:Testing performed by : [address], [place]., [address] Urine 08/02/2024 8:48 AM CDT 08/02/2024 8:54 AM CDT Freddy Yao DO LAB MICROBIOLOGY - GENERAL ORDERABLES Final Result Performing Organization Address [facility] de Phone Number NEEL [address] [place] [address] * (ABNORMAL) Urinalysis, microscopic only (08/02/2024 8:48 AM CDT) WBC, ur 0-5 0 - 5 /HPF Comment:Testing performed by : [facility], [address] [place] [address]., [address] RBC, ur 0-2 0 - 2 /HPF NEEL Comment:Testing performed by : [facility], [address] [place] [address]., [address] Epithelial cells, squamous, ur 1-5 0 - 5 /HPF NEEL Comment:Testing performed by : [address] [address] Mucous, ur Present(A) NEEL Comment:Testing performed by : [address] [address] Culture Reflex Comment Reflex conditions for urine culture (WBC >10) not met. NEEL Comment:Testing performed by : [address] [address] Urine 08/02/2024 8:48 AM CDT 08/02/2024 8:54 AM CDT Freddy Yao DO LAB URINE ORDERABLES Final Result Performing Organization Address [facility] Co de Phone Number NEEL [address] [facility] [employer] [place] [address] * eGFR (08/02/2024 8:43 AM CDT) eGFR [...] was last reviewed 2021. Testing performed by: [address] [address] [address] Blood 08/02/2024 8:43 AM CDT 08/02/2024 8:53 AM CDT Freddy Yao DO LAB BLOOD ORDERABLES Final Result NEEL [facility] [facility] Department of Laboratories [place], [place] [id number] * (ABNORMAL) Differential, auto (08/02/2024 8:43 AM CDT) Neutrophil abs 12.1(H) 1.5 - 6.5 K/cumm Comment:Testing performed by : [address] [address] Imm gran abs 0.1 0.0 - 0.1 K/cumm NEEL Comment:Testing performed by : [address] [address] Lymphocyte abs 0.9 0.8 - 3.3 K/cumm NEEL Comment:Testing performed by : [address] [address] Monocyte abs 0.7 0.2 - 0.8 K/cumm NEEL Comment:Testing performed by : [address] [address] Eosinophil abs 0.0 0.0 - 0.5 K/cumm NELE Comment:Testing performed by : [address] [address] Basophil abs 0.0 0.0 - 0.1 K/cumm NEEL Comment:Testing performed by : [address] [address] Neutrophil pct 88.2 % [facility] Comment: Interpretive Data Percent cell count reference ranges are not reported, since discordance with absolute values may lead to misinterpretation of CBC data. Current Interpretive Data was last revised on 2017. Testing performed by: [address] [address] Imm gran pct 0.4 % [facility] Comment: Interpretive Data Percent cell count reference ranges are not reported, since discordance with absolute values may lead to misinterpretation of CBC data. Current Interpretive Data was last revised on 2017. Testing performed by: [address] [address] Lymphocyte pct 6.6 % [facility] Comment: Interpretive Data Percent cell count reference ranges are not reported, since discordance with absolute values may lead to misinterpretation of CBC data. Current Interpretive Data was last revised on 2017. Testing performed by: [address] [address] Monocyte pct 4.7 % [facility] Comment: Interpretive Data Percent cell count reference ranges are not reported, since discordance with absolute values may lead to misinterpretation of CBC data. Current Interpretive Data was last revised on 2017. Testing performed by: [address] [address] Eosinophil pct 0.0 % [facility] Comment: Interpretive Data Percent cell count reference ranges are not reported, since discordance with absolute values may lead to misinterpretation of CBC data. Current Interpretive Data was last revised on 2017. Testing performed by: [address] [address] Basophil pct 0.1 % [facility] Comment: Interpretive Data Percent cell count reference ranges are not reported, since discordance with absolute values may lead to misinterpretation of CBC data. Current Interpretive Data was last revised on 2017. Testing performed by: [address] [address] Blood 08/02/2024 8:43 AM CDT 08/02/2024 8:53 AM CDT us Freddy Yao DO LAB BLOOD ORDERABLES Final Result [facility] [address] [facility] [place] [address] * (ABNORMAL) CBC with auto differential (08/02/2024 8:43 AM CDT) WBC 13.7(H) 3.8 - 9.9 K/cumm Comment:Testing performed by : [address] [address] Hgb 12.9(L) 13.0 - 17.5 g/dL NEEL Comment:Testing performed by : [address] [address] Hct 38.3(L) 38.9 - 50.3 % NEEL Comment:Testing performed by : [address] [address] Plt 310 150 - 400 K/cumm NEEL Comment:Testing performed by : [address] [address] MPV 9.9 9.1 - 12.3 fL NEEL Comment:Testing performed by : [address] [address] RBC 4.63 4.30 - 5.80 M/cumm NEEL SMITH Comment:Testing performed by : [address] [address] MCV 82.7 81.3 - 96.4 fL NEEL SMITH Comment:Testing performed by : [address] [address] MCH 27.9 27.1 - 33.3 pg NEEL SMITH Comment:Testing performed by : [address] [address] MCHC 33.7 32.3 - 35.7 g/dL NEEL SMITH Comment:Testing performed by : [address] [address] RDW CV 15.9(H) 11.1 - 14.9 % NEEL SMITH Comment:Testing performed by : [address] [address] RDW SD 48.1 35.7 - 48.1 fL NEEL Comment:Testing performed by : [address] [address] NRBC abs 0.00 0.00 - 0.01 K/cumm NEEL Comment:Testing performed by : [address] [address] Blood Venous blood specimen / Unknown 08/02/2024 8:43 AM CDT 08/02/2024 8:53 AM CDT Freddy Yao DO LAB BLOOD ORDERABLES Final Result Performing Organization Address City/[facility] Co de Phone Number [address] [employer] [place] [address] * Lipase (08/02/2024 8:43 AM CDT) Pathologist [facility] Lipase 28 10 - 99 Units/L Comment:Testing performed by : [address] [address] Blood Venous blood specimen / Unknown 08/02/2024 8:43 AM CDT 08/02/2024 8:53 AM CDT Freddy Yao DO LAB BLOOD ORDERABLES Final Result Performing Organization Address City/State/[facility] Co de Phone Number [address] [address] * Comprehensive metabolic panel (08/02/2024 8:43 AM CDT) Sodium 143 135 - 145 mmol/L Comment:Testing performed by : [address] [address] Potassium, pl 3.9 3.3 - 4.9 mmol/L [facility] Comment:Testing performed by : [address] [address] Chloride 107 97 - 110 mmol/L [facility] Comment:Testing performed by : [address], [place]., [address] CO2 22 22 - 32 mmol/L [facility] Comment:Testing performed by : [address] [address] Anion gap 14 2 - 15 mmol/L [facility] Comment:Testing performed by : [address], [place]., [address] BUN 9 6 - 25 mg/dL [facility] Comment:Testing performed by : [address], [place]., [address] Creatinine 0.90 0.80 - 1.30 mg/dL [facility] Comment:Testing performed by : [address] [address] Glucose 161 70 - 199 mg/dL [facility] Comment: Interpretive Data Fasting glucose >/= [...] was last revised 2022. Testing performed by: [address] [address] Calcium 9.0 8.5 - 10.3 mg/dL [facility] Comment:Testing performed by : [address] [address] Bilirubin, total 0.5 0.1 - 1.2 mg/dL [facility] Comment:Testing performed by : [address] [address] Protein, pl 7.1 6.5 - 8.5 g/dL [facility] Comment:Testing performed by : [facility] [address] [place] [address]., [address] Albumin 4.3 3.5 - 5.0 g/dL NEEL SMITH Comment:Testing performed by : [address] [address] Alk phos 81 40 - 130 Units/L NEEL SMITH Comment:Testing performed by : [address] [address] ALT 20 7 - 55 Units/L NEEL SMITH Comment:Testing performed by : [address] [address] AST 26 10 - 50 Units/L NEEL Comment:Testing performed by : [address] [address] Blood 08/02/2024 8:43 AM CDT 08/02/2024 8:53 AM CDT Freddy Yao DO LAB BLOOD ORDERABLES Final Result Performing Organization Address City/State/[facility] Co de Phone Number NEEL [address] [facility] Department of Laboratories [place], [place] [id number] from Last 3 Months Insurance [facility] [place] [address] [facility] Advance Directives For more information, please contact: [phone] * Full Code (Latest Code Status on [...] 8:00 AM 06/30/2022 5:06 PM Care Teams Pole Shaver Helper Relationship Specialty Start Date End Date Td Lopez MD [address] [facility] [address] [place] [address] PCP - General Family Medicine 11/09/20 Angie Woodard MD [address] [facility] [address] [facility] [address] [place] [address] Consulting Physician Gastroenterology 07/17/21 Vimal Woodruff MD [address] [facility] [address] [place] [address] Consulting Physician Gastroenterology 02/10/22
--- OUTSIDE RECORDS SUMMARY | 2024-10-11 01:13 | XMS_ITS | Clinical Summary ---
Author Organization [facility] Address [address] [place] [address] Care Team Providers Care Slicing Machine Operator Name Role Phone Td Lopez MD Primary Care Provider + Angie Woodard MD Unavailable [phone] Vimal Woodruff MD Unavailable [phone] Allergies Active Allergy Reactions Criticality Noted Date [...] 03/25/2024 Assessment & Plan (03/25/2024 11:50 AM APARTMENT LEASING MANAGER): - suspect just muscle strain - will check xray - offered PT but pt refused. 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 Assessment & Plan (03/25/2024 11:49 AM APARTMENT LEASING MANAGER): - ref to derm for eval Drug [...] pain Assessment & Plan (03/25/2024 11:49 AM APARTMENT LEASING MANAGER): - poor control - continue hyosciamine, famotidine, zofran - ref to GI for continued treatment Assessment & Plan (03/20/2023 11:07 AM APARTMENT LEASING MANAGER): - stable - continue current medication Duodenal [...] prn Assessment & Plan (07/15/2019 11:44 AM APARTMENT LEASING MANAGER): - stable - continue bentyl and amitriptyline [...] medication Assessment & Plan (07/15/2019 11:44 AM APARTMENT LEASING MANAGER): - stable - continue creon Annual physical [...] able Assessment & Plan (07/15/2019 11:46 AM APARTMENT LEASING MANAGER): - encourage healthy diet, exercise - check labs - encouraged quitting smoking 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 Assessment & Plan (07/15/2019 11:37 AM APARTMENT LEASING MANAGER): - encouraged pt to quit smoking Abdominal [...] GI Assessment & Plan (03/20/2023 11:07 AM APARTMENT LEASING MANAGER): - stable - continue current medication per [...] 09/17/202209/08 Assessment & Plan (03/20/2023 11:08 AM APARTMENT LEASING MANAGER): - stable off meds - will monitor [...] 09/25/2023 Assessment & Plan (03/26/2021 11:41 AM APARTMENT LEASING MANAGER): - stable today - continue current medications [...] lexapro Assessment & Plan (07/15/2019 11:38 AM APARTMENT LEASING MANAGER): - stable - continue current plan Gastroesophageal reflux dise ase without esophagitis 07/15/2019 03/18/2023 Overview (07/15/2019): - GERD managed by Dr Woodard - Pt on omeprazole and carafate for sx control Assessment & Plan (01/01/2021 12:09 PM CDT): - stable - continue current medication Assessment & Plan (02/07/2020 2:32 PM CDT): - stable - continue current medication Assessment & Plan (07/15/2019 11:38 AM APARTMENT LEASING MANAGER): - stable - continue omeprazole and carafate Viral illness 07/08/2019 02/12/2021 Assessment & Plan (07/09/2019 9:12 AM APARTMENT LEASING MANAGER): Medrol Dosepak as directed. Recommended Mucinex plain [...] (09/17/2018): Added automatically from request for surgery [id number] Assessment & Plan (02/12/2021 11:23 AM CDT): - encouraged pt to f/u with new GI - continue hyoscyamine Assessment & Plan (01/01/2021 12:10 PM CDT): - continue prn oxycodone for now - discussed need to wean off of this as this is not a viable intermediate solution - will ref to pain management [...] medication Assessment & Plan (07/15/2019 11:36 AM APARTMENT LEASING MANAGER): - controlled - continue current plan Chronic [...] CDT - 10/08/2024 8:06 PM CDT Emergency [facility] Emergency Department [address] [place] [address] Chronic abdominal pain (Primary Dx) Discharge Disposition: Discharge to home or self care 10/07/2024 5:29 AM CDT - 10/07/2024 8:34 AM CDT Emergency [address] [address] Jose Francisco Harper DO Prograis, Shannon Smith, MD Abdominal pain (Primary Dx); Chronic pancreatitis, unspecified pancreatitis type (HCC) Discharge Disposition: Discharge to home or self care 10/06/2024 11:00 AM CDT Office Visit [facility] Primary Care [address] [place] [phone] Td Lopez MD Abdominal pain (Primary Dx); Other chronic pancreatitis (HCC); Gastroesophageal reflux disease without esophagitis; Irritable bowel syndrome with both constipation and diarrhea 10/05/2024 DIPTI IP Outreach [facility] Accountable Care Organization [address] [place] [phone] Lakshmi Garcia LPN 10/04/2024 Telephone [facility] Primary Care [address] [place] [phone] Td Lopez MD schedule DIPTI appt 10/02/2024 9:53 PM CDT - 10/03/2024 11:39 AM CDT Hospital Encounter [address] [address] María Elena Calvo MD Medavaram, Atul, MD Sada, Kahmalia-Kalee Conceptia, MD Chowdhury, Farhanaz, MD Abdominal pain (Primary Dx); Acute pancreatitis, unspecified complication status, unspecified pancreatitis type; Pain, dental Discharge Disposition: Discharge to home or self care 09/30/2024 5:44 PM CDT - 09/30/2024 8:58 PM CDT Emergency [facility] Emergency Department [address] [place] [address] Radha Casas DO Abdominal pain (Primary Dx); Urinary tract infection with hematuria, site unspecified Discharge Disposition: Discharge to home or self care 08/23/2024 11:00 AM CDT Office Visit [facility] Primary Care [address] [facility] [address] [place] [phone] Td Lopez MD Pain, dental (Primary Dx); Abdominal pain, epigastric 08/16/2024 3:42 AM CDT - 08/16/2024 6:26 AM CDT Emergency [facility] Emergency Department [address] [place] [address] Ashlie Burgess MD Abdominal pain, epigastric (Primary Dx) Discharge Disposition: Discharge to home or self care 08/15/2024 DIPTI IP Outreach [facility] Accountable Care Organization [address] [place] [phone] Lakshmi Garcia LPN 08/13/2024 4:07 PM CDT - 08/13/2024 8:39 PM CDT Emergency [facility] Emergency Department [address] [place] [phone] Crista Bower MD Abdominal pain, generalized (Primary Dx) Discharge Disposition: Discharge to home or self care 08/11/2024 3:31 PM CDT Anesthesia Event [facility] GI [facility] [address] [place] [phone] Juan Daniel Freed MD 08/11/2024 3:15 PM CDT - 08/11/2024 3:45 PM CDT Surgery [facility] [address] [place] [phone] Georges Luna MD EGD 08/10/2024 2:56 AM CDT - 08/12/2024 12:59 PM CDT Hospital Encounter [address] [phone] Domenic Arias MD Shimotani, Dorian Genki, DO Willis, Devin Ray, MD Acute pancreatitis, unspecified complication status, unspecified pancreatitis type (Primary Dx); Abdominal pain, generalized Discharge Disposition: Discharge to home or self care 08/07/2024 2:23 AM CDT - 08/07/2024 5:31 AM CDT Emergency [facility] Emergency Department [address] [place] [phone] Justice Patel MD Abdominal pain, generalized (Primary Dx) Discharge Disposition: Discharge to home or self care 08/05/2024 Orders Only [facility] Health Information Management [address] [place] [phone] Scanning, Provider 08/04/2024 DIPTI ED Outreach [facility] [address] [address] Alannah Baumann MA 08/03/2024 2:13 PM CDT - 08/03/2024 3:27 PM CDT Emergency [facility] Emergency Department [address] [place] [address] Freddy Yao DO Chronic abdominal pain (Primary Dx); Drug-seeking behavior Discharge Disposition: Discharge to home or self care 08/03/2024 DIPTI ED Outreach [facility] [address] [address] Alannah Baumann MA 08/02/2024 8:48 AM CDT - 08/02/2024 10:46 AM CDT Emergency [facility] Emergency Department [address] [place] [address] Chronic abdominal pain (Primary Dx) Discharge Disposition: [...] 0.6 oz pur e alcohol) [facility] Utilities Answer Date Recorded In the past 12 months has [employer] electric, gas, oil, or water [employer] threatened to shut off services in your [...] often do you attend chur ch or jainism services? Never 08/11/2024 Do you belong to any clubs o r organizations such as christianity groups, unions, fraternal or athletic groups, or [...] any time in the past 12 m [facility], were you homeless or living in a custodial (including now)? No 08/11/2024 Personal Safety Answer Date Recorded Have you ever been in or are you currently in a harmful physical or emotional relationship or is someone making you feel afraid or unsafe? Denies 10/08/2024 Sex and Gender Information Value Date Recorded Sex Assigned at Not on file Legal Sex Male 3:38 AM APARTMENT LEASING MANAGER Gender Identity Not on file Sexual Orientation [...] Vaccines Discontinued Medical Devices Explanted Type Area Glass Sagger Device Identifier Shelf Expiration Date Model / Serial / Lot [employer] 6572 Connell Flexi-Stent 7fr 5cm Small Pigtail Flexible .035in Stent - [id number] Implanted:Qty: 1 on 09/18/2018 by Vimal Woodruff MD at [facility] Explanted:Qty: 1 on 09/20/2018 at [facility] Stent N/A: Pancreas [employer] 06/10/2023 [id number] / / [id number] Conmed Gina [id number] Ovid Viabil 10mm 8.5fr 6cm 200cm Fully Covered Self Expand Pull - [id number] - [id number] Implanted:Qty: 1 on 09/18/2018 by Vimal Woodruff MD at [facility] Explanted:Qty: 1 on 09/20/2018 at [facility] Stent N/A: Bile Duct Conmed Gina 06/29/2021 [id number] / [id number] / [employer] Connell Flexi-Stent 7fr 9cm Small Pigtail Flexible .035in Stent 6575 - [id number] Implanted:Qty: 1 on 02/07/2022 by Vimal Woodruff MD at [facility] Explanted:Qty: 1 on 02/10/2022 by Vimal Woodruff MD at [facility] Stent N/A: Pancreas [employer] 09/07/2026 [id number] / / [id number] [employer] [employer] Gina Wallflex 10mm X 60mm Fully Covered Biliary [id number] - [id number] Implanted:Qty: 1 on 02/07/2022 by Vimal Woodruff MD at [facility] Explanted:Qty: 1 on 02/10/2022 by Vimal Woodruff MD at [facility] Stent N/A: Bile Duct [employer] Gina 11/04/2023 [id number] / / [id number] [employer] Connell Flexi-Stent 7fr 9cm Small Pigtail Flexible .035in Stent 6575 - [id number] Implanted:Qty: 1 on 09/21/2023 by Vimal Woodruff MD at [facility] Explanted:Qty: 1 on 09/23/2023 by Vimal Woodruff MD at [facility] Stent N/A: Pancreas [employer] 03/11/2028 [id number] / / [id number] Description:Not present at b eginning of case. Self migrated out [employer] Gina Wallflex 10mm X 60mm Fully Covered Biliary [id number] - [id number] Implanted:Qty: 1 on 09/21/2023 by Vimal Woodruff MD at [facility] Explanted:Qty: 1 on 09/23/2023 by Vimal Woodruff MD at [facility] Stent N/A: Bile Duct [employer] Gina 08/02/2025 [id number] / / [id number] Procedures Procedure Name Priority Date/Time Associated Diagnosis [...] was last reviewed 2021. Testing performed by: [facility], [address] [place] [address]., [address] Blood 10/08/2024 7:25 PM CDT 10/08/2024 7:29 PM CDT us Lilliana LAWTON LAB BLOOD ORDERABLES Final Result QUINTENZ[facility] [address] [facility] Department [place] [address] * (ABNORMAL) Differential, auto (10/08/2024 7:25 PM CDT) Pathologist [facility] Neutrophil abs 5.02 1.50 - 6.50 K/cumm Comment:Testing performed by : [address] [address] Imm gran abs 0.04 0.00 - 0.10 K/cumm NEEL Comment:Testing performed by : [address], [place]., [address] Lymphocyte abs 3.13 0.80 - 3.30 K/cumm [facility] Comment:Testing performed by : [address] [address] Monocyte abs 1.11(H) 0.20 - 0.80 K/cumm [facility] Comment:Testing performed by : [address] [address] Eosinophil abs 0.10 0.00 - 0.50 K/cumm [facility] Comment:Testing performed by : [address] [address] Basophil abs 0.06 0.00 - 0.10 K/cumm [facility] Comment:Testing performed by : [address] [address] Neutrophil pct 53.1 % [facility] Comment: Interpretive Data Percent cell count reference ranges are not reported, since discordance with absolute values may lead to misinterpretation of CBC data. Current Interpretive Data was last revised on 2017. Testing performed by: [address] [address] Imm gran pct 0.4 % [facility] Comment: Interpretive Data Percent cell count reference ranges are not reported, since discordance with absolute values may lead to misinterpretation of CBC data. Current Interpretive Data was last revised on 2017. Testing performed by: [address] [address] Lymphocyte pct 33.1 % [facility] Comment: Interpretive Data Percent cell count reference ranges are not reported, since discordance with absolute values may lead to misinterpretation of CBC data. Current Interpretive Data was last revised on 2017. Testing performed by: [address] [address] Monocyte pct 11.7 % NEEL Comment: Interpretive Data Percent cell count reference ranges are not reported, since discordance with absolute values may lead to misinterpretation of CBC data. Current Interpretive Data was last revised on 2017. Testing performed by: [address] [address] Eosinophil pct 1.1 % NEEL Comment: Interpretive Data Percent cell count reference ranges are not reported, since discordance with absolute values may lead to misinterpretation of CBC data. Current Interpretive Data was last revised on 2017. Testing performed by: [address] [address] Basophil pct 0.6 % NEEL Comment: Interpretive Data Percent cell count reference ranges are not reported, since discordance with absolute values may lead to misinterpretation of CBC data. Current Interpretive Data was last revised on 2017. Testing performed by: [address] [address] Blood 10/08/2024 7:25 PM CDT 10/08/2024 7:29 PM CDT Lilliana LAWTON LAB BLOOD ORDERABLES Final Result NEEL [address] [facility] Department [place] [address] * (ABNORMAL) CBC with auto differential (10/08/2024 7:25 PM CDT) WBC 9.46 3.80 - 9.90 K/cumm Comment:Testing performed by : [address] [address] Hgb 15.0 13.0 - 17.5 g/dL NEEL SMITH Comment:Testing performed by : [address] [address] Hct 44.6 38.9 - 50.3 % NEEL SMITH Comment:Testing performed by : [address] [address] Plt 321 150 - 400 K/cumm NEEL SMITH Comment:Testing performed by : [address] [address] MPV 10.0 9.1 - 12.3 fL NEEL SMITH Comment:Testing performed by : [address] [address] RBC 5.38 4.30 - 5.80 M/cumm NEEL SMITH Comment:Testing performed by : [address] [address] MCV 82.9 81.3 - 96.4 fL NEEL Comment:Testing performed by : [address] [address] MCH 27.9 27.1 - 33.3 pg NEEL SMITH Comment:Testing performed by : [address] [address] MCHC 33.6 32.3 - 35.7 g/dL NEEL Comment:Testing performed by : [address] [address] RDW CV 15.5(H) 11.1 - 14.9 % NEEL Comment:Testing performed by : [address] [address] RDW SD 46.7 35.7 - 48.1 fL NEEL Comment:Testing performed by : [address], [address] NRBC abs 0.00 0.00 - 0.01 K/cumm NEEL Comment:Testing performed by : [address] [address] Blood Venous blood specimen / Unknown 10/08/2024 7:25 PM CDT 10/08/2024 7:29 PM CDT us Lilliana LAWTON LAB BLOOD ORDERABLES Final Result NEEL [address] [facility] Department of Laboratories [place], [place] [id number] * Lipase (10/08/2024 7:25 PM CDT) [facility] Lipase 42 10 - 99 Units/L Comment:Testing performed by : [address] [address] Blood Venous blood specimen / Unknown 10/08/2024 7:25 PM CDT 10/08/2024 7:29 PM CDT Lilliana LAWTON LAB BLOOD ORDERABLES Final Result NEEL [address] [facility] Department [place] [address] * Comprehensive metabolic panel (10/08/2024 7:25 PM CDT) Sodium 141 135 - 145 mmol/L Comment:Testing performed by : [address] [address] Potassium, pl 4.3 3.3 - 4.9 mmol/L NEEL Comment: Hemolyzed; Potassium value may be falsely elevated by as much as 1.0 mmol/L. Suggest redraw and reanalysis. Testing performed by: [address] [address] Chloride 105 97 - 110 mmol/L NEEL Comment:Testing performed by : [address] [address] CO2 22 22 - 32 mmol/L NEEL Comment:Testing performed by : [address] [address] Anion gap 14 2 - 15 mmol/L NEEL Comment:Testing performed by : [address] [address] BUN 7 6 - 25 mg/dL NEEL Comment:Testing performed by : [address] [address] Creatinine 1.02 0.80 - 1.30 mg/dL NEEL Comment:Testing performed by : [address] [address] Glucose 104 70 - 199 mg/dL NEEL [...] was last revised 2022. Testing performed by: [address] [address] Calcium 10.1 8.5 - 10.3 mg/dL NEEL Comment:Testing performed by : [address] [address] Bilirubin, total 0.3 0.1 - 1.2 mg/dL NEEL Comment:Testing performed by : [address] [address] Protein, pl 7.7 6.5 - 8.5 g/dL NEEL Comment:Testing performed by : [address] [address] Albumin 4.8 3.5 - 5.0 g/dL NEEL Comment:Testing performed by : [address] [address] Alk phos 88 40 - 130 Units/L NEEL Comment:Testing performed by : [address] [address] ALT 24 7 - 55 Units/L NEEL Comment:Testing performed by : [address] [address] AST 25 10 - 50 Units/L NEEL Comment: Hemolyzed; result may be falsely elevated Testing performed by: [address] [address] Blood 10/08/2024 7:25 PM CDT 10/08/2024 7:29 PM CDT us Lilliana LAWTON LAB BLOOD ORDERABLES Final Result NEEL [address] [facility] Department of Laboratories [place], [place] [id number] [phone] * CTA Chest Abdomen Pelvis (10/07/2024 6:41 [...] signed by Melissa ARNETT T: Report ID: [id number] Reading Location: [place] [address] Procedure Note Melissa [place] MD - 10/07/2024 [...] Melissa [place] M.D. 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 SN T: Report ID: [id number] Reading Location: [id number] Procedure Note Melissa [place] MD - 10/07/2024 EXAM DESCRIPTION: XR CHEST 1 VIEW REASON FOR STUDY: Abd pain, unspecified C/o upper L quad abd pain. 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 SN T: Report ID: [id number] Reading Location: [id number] Jose Francisco Harper DO IMG XR PROCEDURES [...] BLOOD ORDERABLES Final Result Performing Organization Address City/[facility]/ZIP Co de Phone Number NEEL [address] [facility] [place] [address] * ECG 12 lead (10/07/2024 4:11 AM CDT) Ventricular Rate EKG/Min 65 BPM [facility] Atrial Rate 65 BPM [facility] ID-Interval (MSEC) 108 ms [facility] QRS-Interval (MSEC) 102 ms [facility] QT-Interval (MSEC) 388 ms [facility] QTc 403 ms [facility] P Dandridge 30 degrees [facility] R [place]andridge 56 degrees [facility] T Dandridge 58 degrees [facility] Diagnosis Sinus rhythm with short ID Otherwise normal ECG When compared with ECG of 27-JUN-2024 09:54, No significant change was found Confirmed by ASHLIE BERMEO M.D. ([id number]) on 10/07/2024 11:47:08 PM [facility] 10/07/2024 4:11 AM CDT 10/07/2024 11:47 PM CDT Jose Francisco Harper DO ECG ORDERABLES Final Resul t Performing Organization Address City/[facility] Co de Phone Number [facility] * Urinalysis reflex to microscopic and culture Urine (10/07/2024 4:06 AM CDT) Color, ur Yellow Yellow Clarity, ur Clear Clear [facility] Specific gravity, ur 1.013 1.003 - 1.030 [facility] pH, urine 5.5 [facility] Comment: Interpretive Data U rine pH is affected by diet, medications, systemic acid-base disturbances, and renal tubular function. pH may affect urinary stone formation. For example, urine pH below 6.0 may help reduce the tendency for calcium phosphate stones and pH greater than 6.0 may reduce the tendency for uric acid stone formation. Source: [facility] Current Interpretive Data was last revised on 2017 Protein, ur ql Negative Negative [facility] Glucose, ur ql Negative Negative [facility] Ketones, ur Negative Negative [facility] Bilirubin, ur Negative Negative [facility] Blood, ur Negative Negative [facility] Urobilinogen, ur <2.0 <2.0 mg/dL [facility] Nitrite, ur Negative Negative [facility] Leukocyte esterase, ur Negative Negative [facility] UA reflex comment Reflex conditions for microscopic UA and culture not met. [facility] Urine 10/07/2024 4:06 AM CDT 10/07/2024 4:10 AM CDT Jose Francisco Rubio [facility] LAB MICROBIOLOGY - GENERAL ORDERABLES Final Result Performing Organization Address [facility] de Phone Number [facility] [address] [facility] Department [place] [address] * Troponin T high-sensitivity series (baseline, 2hr, 4hr, 6hr) (10/07/2024 4:00 AM CDT) Trop T hs <6 <=22 ng/L Comment: Interpretive Data For further hscTnT resources including the diagnostic algorithm and an aid in interpretation, copy and paste this link: [email or web address] Current Interpretive Data last revised 2020. Blood 10/07/2024 4:00 AM CDT 10/07/2024 4:02 AM CDT [facility] BLOOD ORDERABLES Final Result Performing Organization Address [facility]/State/ZIP Co de Phone Number NEEL [address] Department [place] [address] * eGFR (10/07/2024 4:00 AM CDT) [facility] eGFR 87 >=60 mL/min/1. 73 m2 Comment: [...] DO LAB BLOOD ORDERABLES Final Result NEEL [address] Department [place] [address] * (ABNORMAL) Differential, auto (10/07/2024 4:00 AM CDT) [facility] Neutrophil abs 5.81 1.50 - 6.50 K/cumm Imm gran abs 0.04 0.00 - 0.10 K/cumm [facility] Lymphocyte abs 3.73(H) 0.80 - 3.30 K/cumm [facility] Monocyte abs 1.14(H) 0.20 - 0.80 K/cumm [facility] Eosinophil abs 0.27 0.00 - 0.50 K/cumm [facility] Basophil abs 0.06 0.00 - 0.10 K/cumm [facility] Neutrophil pct 52.6 % [facility] Comment: Interpretive Data Percent cell count reference ranges are not reported, since discordance with absolute values may lead to misinterpretation of CBC data. Current Interpretive Data was last revised on 2017. Imm gran pct 0.4 % [facility] Comment: Interpretive Data Percent cell count reference ranges are not reported, since discordance with absolute values may lead to misinterpretation of CBC data. Current Interpretive Data was last revised on 2017. Lymphocyte pct 33.8 % [facility] Comment: Interpretive Data Percent cell count reference ranges are not reported, since discordance with absolute values may lead to misinterpretation of CBC data. Current Interpretive Data was last revised on 2017. Monocyte pct 10.3 % [facility] Comment: Interpretive Data Percent cell count reference ranges are not reported, since discordance with absolute values may lead to misinterpretation of CBC data. Current Interpretive Data was last revised on 2017. Eosinophil pct 2.4 % [facility] Comment: Interpretive Data Percent cell count reference ranges are not reported, since discordance with absolute values may lead to misinterpretation of CBC data. Current Interpretive Data was last revised on 2017. Basophil pct 0.5 % [facility] Comment: Interpretive Data Percent cell count reference ranges are not reported, since discordance with absolute values may lead to misinterpretation of CBC data. Current Interpretive Data was last revised on 2017. Blood 10/07/2024 4:00 AM CDT 10/07/2024 4:02 AM CDT Jose Francisco Harper DO LAB BLOOD ORDERABLES Final Result [facility] [address] [place] [address] * (ABNORMAL) CBC with auto differential (10/07/2024 4:00 AM CDT) WBC 11.05(H) 3.80 - 9.90 K/cumm Hgb 14.9 13.0 - 17.5 g/dL [facility] Hct 44.7 38.9 - 50.3 % [facility] Plt 281 150 - 400 K/cumm [facility] MPV 9.8 9.1 - 12.3 fL [facility] RBC 5.28 4.30 - 5.80 M/cumm [facility] MCV 84.7 81.3 - 96.4 fL [facility] MCH 28.2 27.1 - 33.3 pg [facility] MCHC 33.3 32.3 - 35.7 g/dL [facility] RDW CV 15.3(H) 11.1 - 14.9 % [facility] RDW SD 46.6 35.7 - 48.1 fL [facility] NRBC abs 0.00 0.00 - 0.01 K/cumm [facility] Blood Venous blood specimen / Unknown 10/07/2024 4:00 AM CDT 10/07/2024 4:02 AM CDT [facility] BLOOD ORDERABLES Final Result Performing Organization Address [facility] Co de Phone Number [address] [place] [employer] [address] * (ABNORMAL) Lipase (10/07/2024 4:00 AM CDT) [facility] Lipase 104(H) 10 - 99 Units/L Blood Venous blood specimen / Unknown 10/07/2024 4:00 AM CDT 10/07/2024 4:02 AM CDT [facility] LAB BLOOD ORDERABLES Final Result Performing Organization Address [facility] Co de Phone Number [address] [place] [address] * Comprehensive metabolic panel (10/07/2024 4:00 AM CDT) [facility] Sodium 142 135 - 145 mmol/L Potassium, pl 4.1 3.3 - 4.9 mmol/L [facility] Chloride 107 97 - 110 mmol/L [facility] CO2 23 22 - 32 mmol/L [facility] Anion gap 12 2 - 15 mmol/L [facility] BUN 9 6 - 25 mg/dL [facility] Creatinine 1.08 0.80 - 1.30 mg/dL [facility] Glucose 90 70 - 199 mg/dL [facility] Comment: Interpretive Data Fasting glucose >/= [...] 2022. Calcium 9.4 8.5 - 10.3 mg/dL [facility] Bilirubin, total 0.2 0.1 - 1.2 mg/dL [facility] Protein, pl 7.1 6.5 - 8.5 g/dL [facility] Albumin 4.4 3.5 - 5.0 g/dL [facility] Alk phos 81 40 - 130 Units/L [facility] ALT 23 7 - 55 Units/L [facility] AST 24 10 - 50 Units/L [facility] Blood 10/07/2024 4:00 AM CDT 10/07/2024 4:02 AM CDT Jose Francisco Harper DO LAB BLOOD ORDERABLES Final Result Performing Organization Address City/State/[facility] Co de Phone Number [facility] [address] Department of Laboratories [place], [place] [id number] * eGFR (10/03/2024 7:08 AM CDT) eGFR [...] MD LAB BLOOD ORDERABLES Final Res ult [place] [id number] [place] [address] * (ABNORMAL) CBC without differential (10/03/2024 7:08 AM CDT) WBC 13.42(H) 3.80 - 9.90 K/cumm Hgb 12.4(L) 13.0 - 17.5 g/dL [facility] Hct 37.9(L) 38.9 - 50.3 % [facility] Plt 226 150 - 400 K/cumm [facility] MPV 10.0 9.1 - 12.3 fL [facility] RBC 4.43 4.30 - 5.80 M/cumm [facility] MCV 85.6 81.3 - 96.4 fL [facility] MCH 28.0 27.1 - 33.3 pg [facility] MCHC 32.7 32.3 - 35.7 g/dL [facility] RDW CV 15.4(H) 11.1 - 14.9 % [facility] RDW SD 48.1 35.7 - 48.1 fL [facility] NRBC abs 0.00 0.00 - 0.01 K/cumm [facility] Blood 10/03/2024 7:08 AM CDT 10/03/2024 7:22 AM CDT us Fred Toth MD LAB BLOOD ORDERABLES Final Res ult Performing Organization Address City/[facility]/ZIP Co de Phone Number NEEL [address] [place] [address] * Lipase (10/03/2024 7:08 AM CDT) Pathologist [facility] Lipase 55 10 - 99 Units/L Blood 10/03/2024 7:08 AM CDT 10/03/2024 7:22 AM CDT Fred Navneet TUCKER LAB BLOOD ORDERABLES Final Res ult Performing Organization Address [facility] de Phone Number NEEL [address] [address] * Basic metabolic panel (10/03/2024 7:08 AM CDT) Pathologist [facility] Sodium 141 135 - 145 mmol/L Potassium, pl 4.4 3.3 - 4.9 mmol/L [facility] Chloride 107 97 - 110 mmol/L [facility] CO2 24 22 - 32 mmol/L [facility] Anion gap 10 2 - 15 mmol/L [facility] BUN 9 6 - 25 mg/dL [facility] Creatinine 0.96 0.80 - 1.30 mg/dL [facility] Glucose 100 70 - 199 mg/dL [facility] Comment: Interpretive Data Fasting glucose >/= [...] 2022. Calcium 8.9 8.5 - 10.3 mg/dL [facility] Blood 10/03/2024 7:08 AM CDT 10/03/2024 7:22 AM CDT us Fred Toth MD LAB BLOOD ORDERABLES Final Res ult [facility] [address] Department [place] [address] * (ABNORMAL) Lipid panel (10/03/2024 [...] last revised on 2017. Testing performed by: [address] [address] Triglycerides 115 <=149 mg/dL NE[facility] Comment: Interpretive [...] last revised on 2017. Testing performed by: [address] [address] HDL 32(L) >=40 mg/dL NE[facility] Comment: Interpretive [...] last revised on 2017. Testing performed by: [address] [address] LDL, calculated 61 <=129 mg/dL NE[facility] Comment: [...] last revised on 2023. Testing performed by: [address] [address] Non-HDL Cholesterol 82 mg/dL NE[facility] Comment: Interpretive [...] last revised on 2017. Testing performed by: [address] [address] Chol/HDL ratio 4 NEEL SMITH Comment:Testing performed by : [facility], [address] [place] [address], [place]., [address] Blood 10/03/2024 1:54 AM CDT 10/03/2024 2:00 AM CDT us Fred Toth MD LAB BLOOD ORDERABLES Final Res ult NEEL SMITH [address] Department [place] [address] * CT Abdomen Pelvis W Contrast (10/03/2024 [...] Aryan Jovel M.D. AR: GIOVANNA Report ID: [id number] Reading Location: [id number] Procedure Note Aryan Jovel MD - 10/03/2024 [...] Aryan Jovel M.D. AR: GIOVANNA Report ID: [id number] Reading Location: [place] [address] Fred Toth MD IM CT PROCEDURES Final Result * (ABNORMAL) Drugs of Abuse Screen, Urine with Reflex Confirmation (10/03/2024 12:51 AM CDT) Pathologist [facility] Amphetamine, ur Not Detected CutOff 500ng/mL Comment: Interpretive Data - Amphetamines: Samples containing greater than 500 ng/mL d-methamphetamine or other cross-reacting amphetamine compounds are reported as positive. Amphetamine immunoassays are subject to significant false positive rates due to cross-reactivity of non-amphetamine drugs. Confirmatory testing required for definitive results. Current Interpretive Data was last reviewed 2022. Testing performed by: [address] [address] Barbiturates, ur Not Detected CutOff 200ng/mL [facility] Comment: Interpretive Data - Barbiturates: Samples containing greater than 200 ng/mL secobarbital or other cross-reacting barbiturate compounds are reported as positive. False positive and false negative results are possible. Confirmatory testing required for definitive results. Current Interpretive Data was last reviewed 2022. Testing performed by: [address] [address] Benzodiazepines, ur Not Detected CutOff 100ng/mL [facility] Comment: Interpretive Data - Benzodiazepines: Samples containing greater than 100 ng/mL nordiazepam or other cross-reacting compounds are reported as positive. False positive and false negative results are possible. Confirmatory testing required for definitive results. Current Interpretive Data was last reviewed 2022. Testing performed by: [address] [address] Cannabinoids, ur Screen Positive, presumptive (A) CutOff 50 ng/mL [facility] Comment: Interpretive Data - Cannabinoids: Samples containing greater than 50 ng/mL delta-9 THC -COOH or other cross- reacting compounds are reported as positive. False positive and false negative results are possible. Confirmatory testing required for definitive results. Current Interpretive Data was last reviewed 2022. Testing performed by: [facility], [address] [place] [address]., [address] Cocaine, ur Not Detected CutOff 150ng/mL [facility] Comment: Interpretive Data - Cocaine: Samples containing greater than 150 ng/mL benzoylecgonine or other cross- reacting compounds are reported as positive. False positive and false negative results are possible. Confirmatory testing required for definitive results. Current Interpretive Data was last reviewed 2022. Testing performed by: [address], [place]., [address] Fentanyl, Ur Not Detected CutOff 5 ng/mL [facility] Comment: Interpretive Data - Fentanyl: Samples containing greater than 1 ng/mL fentanyl or other cross-reacting fentanyl compounds are reported as positive. False positive and false negative results are possible. Confirmatory testing required for definitive results. Current Interpretive Data was last reviewed 2022. Testing performed by: [facility], [address] [place] [address]., [address] Methadone, ur Not Detected CutOff 300ng/mL [facility] Comment: Interpretive Data - Methadone: Samples containing greater than 300 ng/mL d,l-methadone or other cross-reacting compounds are reported as positive. False positive and false negative results are possible. Confirmatory testing required for definitive results. Current Interpretive Data was last reviewed 2022. Testing performed by: [address] [address] Opiates, ur Not Detected CutOff 300ng/mL [facility] Comment: Interpretive Data - Opiates: Samples containing greater than 300 ng/mL morphine or other cross-reacting compounds are reported as positive. False positive and false negative results are possible. Confirmatory testing required for definitive results. Current Interpretive Data was last reviewed 2022. Testing performed by: [facility], [address] [place] [address]., [address] Oxycodone, ur Not Detected CutOff 100ng/mL [facility] Comment: Interpretive Data - Oxycodone: Samples containing greater than 100 ng/mL oxycodone or other cross-reacting compounds are reported as positive. False positive and false negative results are possible. Confirmatory testing required for definitive results. Current Interpretive Data was last reviewed 2022. Testing performed by: [address] [address] Phencyclidine, ur Not Detected CutOff 25 ng/mL NEEL SMITH Comment: Interpretive Data - Phencyclidine: Samples containing greater than 25 ng/mL phencyclidine or other cross-reacting compounds are reported as positive. False positive and false negative results are possible. Confirmatory testing required for definitive results. Current Interpretive Data was last reviewed 2022. Testing performed by: [address], [place]., [address] Urine Creatinine 102 mg/dL NEEL SMITH Comment: Interpretive Data Urine Creatinine: < 10 mg/dL is extremely dilute = or > 10 but < 20 mg/dL is dilute = or > 20 mg/dL is normal Current Interpretive Data was last revised on 2017. Testing performed by: [address] [address] Urine 10/03/2024 12:5 1 AM CDT 10/03/2024 [...] LAB URINE ORDERABLES Final Res ult NE[facility] [address] Department [place] [address] * Urinalysis reflex to microscopic and culture Urine (10/02/2024 10:09 PM CDT) Color, ur Yellow Yellow Comment:Testing performed by : [address] [address] Clarity, ur Clear Clear NEEL SMITH Comment:Testing performed by : [address] [address] Specific gravity, ur 1.011 1.003 - 1.030 NEEL Comment:Testing performed by : [address], [place]., [address] pH, urine 6.0 NEEL Comment: Interpretive Data U rine pH is affected by diet, medications, systemic acid-base disturbances, and renal tubular function. pH may affect urinary stone formation. For example, urine pH below 6.0 may help reduce the tendency for calcium phosphate stones and pH greater than 6.0 may reduce the tendency for uric acid stone formation. Source: [facility] [address] Current Interpretive Data was last revised on 2017 Testing performed by: [address] [address] Protein, ur ql Negative Negative NEEL Comment:Testing performed by : [address], [place]., [address] Glucose, ur ql Negative Negative NEEL Comment:Testing performed by : [address] [address] Ketones, ur Negative Negative NEEL Comment:Testing performed by : [address], [place]., [address] Bilirubin, ur Negative Negative NEEL Comment:Testing performed by : [address], [place]., [address] Blood, ur Negative Negative NEEL Comment:Testing performed by : [address], [place]., [address] Urobilinogen, ur <2.0 <2.0 mg/dL NEEL Comment:Testing performed by : [address] [address] Nitrite, ur Negative Negative NEEL Comment:Testing performed by : [address], [place]., [address] Leukocyte esterase, ur Negative Negative NEEL Comment:Testing performed by : [address] [address] UA reflex comment Reflex conditions for microscopic UA and culture not met. NEEL Comment:Testing performed by : [address], [place]., [address] Urine 10/02/2024 10:0 9 PM CDT 10/02/2024 10:11 PM CDT María Elena Calvo MD LAB MICROBIOLOGY - GENERA L ORDERABLES Final Result Performing Organization Address [facility] Co ky Phone Number NEEL [address] Department [place] [address] * eGFR (10/02/2024 9:51 PM CDT) eGFR [...] was last reviewed 2021. Testing performed by: [facility], [address] [place] [address]., [address] Blood 10/02/2024 9:51 PM CDT 10/02/2024 9:57 PM CDT María Elena Calvo MD LAB BLOOD ORDERABLES Renee l Result Performing Organization Address [facility] Co de Phone Number NEEL [address] Department [place] [address] * (ABNORMAL) Differential, auto (10/02/2024 9:51 PM CDT) Neutrophil abs 12.91(H) 1.50 - 6.50 K/cumm Comment:Testing performed by : [address], [place]., [address] Imm gran abs 0.10 0.00 - 0.10 K/cumm NEEL Comment:Testing performed by : [address], [place]., [address] Lymphocyte abs 1.91 0.80 - 3.30 K/cumm NEEL Comment:Testing performed by : [address], [place]., [address] Monocyte abs 1.44(H) 0.20 - 0.80 K/cumm [facility] Comment:Testing performed by : [address], [place]., [address] Eosinophil abs 0.14 0.00 - 0.50 K/cumm NEEL Comment:Testing performed by : [address], [place]., [address] Basophil abs 0.07 0.00 - 0.10 K/cumm [facility] Comment:Testing performed by : [address] [address] Neutrophil pct 78.0 % [facility] Comment: Interpretive Data Percent cell count reference ranges are not reported, since discordance with absolute values may lead to misinterpretation of CBC data. Current Interpretive Data was last revised on 2017. Testing performed by: [address] [address] Imm gran pct 0.6 % [facility] Comment: Interpretive Data Percent cell count reference ranges are not reported, since discordance with absolute values may lead to misinterpretation of CBC data. Current Interpretive Data was last revised on 2017. Testing performed by: [address] [address] Lymphocyte pct 11.5 % [facility] Comment: Interpretive Data Percent cell count reference ranges are not reported, since discordance with absolute values may lead to misinterpretation of CBC data. Current Interpretive Data was last revised on 2017. Testing performed by: [address] [address] Monocyte pct 8.7 % [facility] Comment: Interpretive Data Percent cell count reference ranges are not reported, since discordance with absolute values may lead to misinterpretation of CBC data. Current Interpretive Data was last revised on 2017. Testing performed by: [address] [address] Eosinophil pct 0.8 % NE[facility] Comment: Interpretive Data Percent cell count reference ranges are not reported, since discordance with absolute values may lead to misinterpretation of CBC data. Current Interpretive Data was last revised on 2017. Testing performed by: [address] [address] Basophil pct 0.4 % [facility] Comment: Interpretive Data Percent cell count reference ranges are not reported, since discordance with absolute values may lead to misinterpretation of CBC data. Current Interpretive Data was last revised on 2017. Testing performed by: [address] [address] Blood 10/02/2024 9:5 1 PM CDT 10/02/2024 9:57 PM CDT us María Elena Calvo MD LAB BLOOD ORDERABLES Renee l Result [facility] [address] Department [place] [address] * (ABNORMAL) CBC with auto differential (10/02/2024 9:51 PM CDT) WBC 16.57(H) 3.80 - 9.90 K/cumm Comment:Testing performed by : [address] [address] Hgb 13.9 13.0 - 17.5 g/dL NEEL Comment:Testing performed by : [address] [address] Hct 41.0 38.9 - 50.3 % NEEL Comment:Testing performed by : [address] [address] Plt 281 150 - 400 K/cumm NEEL Comment:Testing performed by : [address] [address] MPV 9.9 9.1 - 12.3 fL NEEL SMITH Comment:Testing performed by : [address] [address] RBC 4.94 4.30 - 5.80 M/cumm NEEL SMITH Comment:Testing performed by : [address] [address] MCV 83.0 81.3 - 96.4 fL NEEL SMITH Comment:Testing performed by : [address] [address] MCH 28.1 27.1 - 33.3 pg NEEL SMITH Comment:Testing performed by : [address], [address] MCHC 33.9 32.3 - 35.7 g/dL NEEL SMITH Comment:Testing performed by : [address] [address] RDW CV 15.4(H) 11.1 - 14.9 % NEEL Comment:Testing performed by : [address], [address] RDW SD 46.5 35.7 - 48.1 fL NEEL Comment:Testing performed by : [address], [address] NRBC abs 0.00 0.00 - 0.01 K/cumm NEEL Comment:Testing performed by : [address] [address] Blood Venous blood specimen / Unknown 10/02/2024 9:51 PM CDT 10/02/2024 9:57 PM CDT us María Elena Calvo MD LAB BLOOD ORDERABLES Renee l Result [facility] [address] Department [place] [address] * (ABNORMAL) Lipase (10/02/2024 9:51 PM CDT) Lipase 444(H) 10 - 99 Units/L Comment:Testing performed by : [address] [place] [address] Blood Venous blood specimen / Unknown 10/02/2024 9:51 PM CDT 10/02/2024 9:57 PM CDT María Elena Calvo MD LAB BLOOD ORDERABLES Renee antunez Result [facility] [address] Department [place] [address] * Comprehensive metabolic panel (10/02/2024 9:51 PM CDT) Sodium 143 135 - 145 mmol/L Comment:Testing performed by : [address] [address] Potassium, pl 3.9 3.3 - 4.9 mmol/L NEEL Comment:Testing performed by : [address] [address] Chloride 107 97 - 110 mmol/L NEEL Comment:Testing performed by : [address] [address] CO2 22 22 - 32 mmol/L NEEL Comment:Testing performed by : [address] [address] Anion gap 14 2 - 15 mmol/L NEEL Comment:Testing performed by : [address] [address] BUN 7 6 - 25 mg/dL NEEL Comment:Testing performed by : [address] [address] Creatinine 1.08 0.80 - 1.30 mg/dL NEEL Comment:Testing performed by : [address] [address] Glucose 129 70 - 199 mg/dL NEEL [...] was last revised 2022. Testing performed by: [address] [address] Calcium 10.0 8.5 - 10.3 mg/dL NEEL Comment:Testing performed by : [address] [address] Bilirubin, total 0.3 0.1 - 1.2 mg/dL NEEL Comment:Testing performed by : [address] [address] Protein, pl 7.2 6.5 - 8.5 g/dL [facility] Comment:Testing performed by : [address] [address] Albumin 4.5 3.5 - 5.0 g/dL NEEL Comment:Testing performed by : [address] [address] Alk phos 84 40 - 130 Units/L [facility] Comment:Testing performed by : [address] [address] ALT 28 7 - 55 Units/L NEEL Comment:Testing performed by : [address] [address] AST 37 10 - 50 Units/L [facility] Comment:Testing performed by : [address] [address] Blood 10/02/2024 9:51 PM CDT 10/02/2024 9:57 PM CDT us María Elena Calvo MD LAB BLOOD ORDERABLES Renee antunez Result [facility] [address] Department of Laboratories [place], [place] [id number] * CT Abdomen Pelvis W Contrast (09/30/2024 [...] Esa Cao M.D. AG: GONZALES Report ID: [id number] Reading Location: [id number] Procedure Note Esa Cao MD - 09/30/2024 [...] Electronically signed by Esa Cao M.D. AG: OGNZALES Report ID: [id number] Reading Location: [place] [address] [facility] CT PROCEDURES Final Result * (ABNORMAL) Urinalysis reflex to microscopic and culture Urine (09/30/2024 5:55 PM CDT) Color, ur Yellow Yellow Comment:Testing performed by : [address] [address] Clarity, ur Clear Clear NEEL Comment:Testing performed by : [address] [address] Specific gravity, ur 1.035(H) 1.003 - 1.030 NEEL Comment:Testing performed by : [address] [address] pH, urine 6.0 NEEL Comment: Interpretive Data U rine pH is affected by diet, medications, systemic acid-base disturbances, and renal tubular function. pH may affect urinary stone formation. For example, urine pH below 6.0 may help reduce the tendency for calcium phosphate stones and pH greater than 6.0 may reduce the tendency for uric acid stone formation. Source: [facility] Current Interpretive Data was last revised on 2017 Testing performed by: [address], [place]., [address] Protein, ur ql 1+(A) Negative NEEL Comment:Testing performed by : [address], [place]., [address] Glucose, ur ql Negative Negative NEEL Comment:Testing performed by : [address], [place]., [address] Ketones, ur 1+(A) Negative NEEL Comment:Testing performed by : [address], [place]., [address] Bilirubin, ur Negative Negative NEEL Comment:Testing performed by : [address], [place]., [address] Blood, ur Negative Negative NEEL Comment:Testing performed by : [address], [place]., [address] Urobilinogen, ur 2.0(A) <2.0 mg/dL NEEL Comment:Testing performed by : [address], [place]., [address] Nitrite, ur Negative Negative NEEL Comment:Testing performed by : [address], [place]., [address] Leukocyte esterase, ur Negative Negative NEEL Comment:Testing performed by : [address], [place]., [address] UA reflex comment Reflex to microscopic UA will be performed. NEEL Comment:Testing performed by : [address] [address] Urine 09/30/2024 5:55 PM CDT 09/30/2024 5:57 PM CDT us Radha Casas DO LAB MICROBIOLOGY - GENERAL ORDE SAMEER Final Result NEEL SMITH [address] [facility] Department [place] [address] * (ABNORMAL) Urinalysis, microscopic only (09/30/2024 5:55 PM CDT) WBC, ur 6-10(A) 0 - 5 /HPF Comment:Testing performed by : [facility] [address] [place] [address]., [address] RBC, ur 3-5(A) 0 - 2 /HPF NEEL Comment:Testing performed by : [address] [address] Epithelial cells, squamous, ur 6-10(A) 0 - 5 /HPF NEEL Comment:Testing performed by : [address] [address] Mucous, ur Present(A) NEEL Comment:Testing performed by : [address] [address] Culture Reflex Comment Reflex conditions for urine culture (WBC >10) not met. NEEL Comment:Testing performed by : [address] [address] Urine 09/30/2024 5:55 PM CDT 09/30/2024 5:57 PM CDT Radha Casas DO LAB URINE ORDERABLES Final Resu lt NEEL [address] [facility] Department [place] [address] * eGFR (09/30/2024 4:01 PM [...] was last reviewed 2021. Testing performed by: [address] [address] Blood 09/30/2024 4:01 PM CDT 09/30/2024 4:06 PM CDT Radha Casas DO LAB BLOOD ORDERABLES Final Resu lt [facility] [address] [facility] Department [place] [address] * Differential, auto (09/30/2024 4:01 PM CDT) Neutrophil abs 5.11 1.50 - 6.50 K/cumm Comment:Testing performed by : [address] [address] Imm gran abs 0.04 0.00 - 0.10 K/cumm NEEL Comment:Testing performed by : [address] [address] Lymphocyte abs 1.62 0.80 - 3.30 K/cumm NEEL Comment:Testing performed by : [address] [address] Monocyte abs 0.77 0.20 - 0.80 K/cumm NEEL Comment:Testing performed by : [address] [address] Eosinophil abs 0.18 0.00 - 0.50 K/cumm NEEL Comment:Testing performed by : [address] [address] Basophil abs 0.05 0.00 - 0.10 K/cumm NEEL Comment:Testing performed by : [address] [address] Neutrophil pct 65.9 % NEEL Comment: Interpretive Data Percent cell count reference ranges are not reported, since discordance with absolute values may lead to misinterpretation of CBC data. Current Interpretive Data was last revised on 2017. Testing performed by: [address] [address] Imm gran pct 0.5 % [facility] Comment: Interpretive Data Percent cell count reference ranges are not reported, since discordance with absolute values may lead to misinterpretation of CBC data. Current Interpretive Data was last revised on 2017. Testing performed by: [address] [address] Lymphocyte pct 20.8 % [facility] Comment: Interpretive Data Percent cell count reference ranges are not reported, since discordance with absolute values may lead to misinterpretation of CBC data. Current Interpretive Data was last revised on 2017. Testing performed by: [address] [address] Monocyte pct 9.9 % [facility] Comment: Interpretive Data Percent cell count reference ranges are not reported, since discordance with absolute values may lead to misinterpretation of CBC data. Current Interpretive Data was last revised on 2017. Testing performed by: [address] [address] Eosinophil pct 2.3 % [facility] Comment: Interpretive Data Percent cell count reference ranges are not reported, since discordance with absolute values may lead to misinterpretation of CBC data. Current Interpretive Data was last revised on 2017. Testing performed by: [address] [address] Basophil pct 0.6 % [facility] Comment: Interpretive Data Percent cell count reference ranges are not reported, since discordance with absolute values may lead to misinterpretation of CBC data. Current Interpretive Data was last revised on 2017. Testing performed by: [address] [address] Blood 09/30/2024 4:01 PM CDT 09/30/2024 4:06 PM CDT us Radha Casas DO LAB BLOOD ORDERABLES Final Resu lt NEEL [address] [facility] Department [place] [address] * (ABNORMAL) CBC with auto differential (09/30/2024 4:01 PM CDT) [facility] Signature WBC 7.77 3.80 - 9.90 K/cumm Comment:Testing performed by : [address] [address] Hgb 14.5 13.0 - 17.5 g/dL NEEL Comment:Testing performed by : [address], [address] Hct 43.0 38.9 - 50.3 % NEEL Comment:Testing performed by : [address], [address] Plt 278 150 - 400 K/cumm NEEL Comment:Testing performed by : [address], [address] MPV 9.8 9.1 - 12.3 fL NEEL Comment:Testing performed by : [address], [address] RBC 5.18 4.30 - 5.80 M/cumm NEEL Comment:Testing performed by : [address], [address] MCV 83.0 81.3 - 96.4 fL NEEL Comment:Testing performed by : [address], [address] MCH 28.0 27.1 - 33.3 pg NEEL Comment:Testing performed by : [address], [address] MCHC 33.7 32.3 - 35.7 g/dL NEEL Comment:Testing performed by : [address], [address] RDW CV 15.3(H) 11.1 - 14.9 % NEEL Comment:Testing performed by : [address], [address] RDW SD 46.4 35.7 - 48.1 fL NEEL Comment:Testing performed by : [address], [address] NRBC abs 0.00 0.00 - 0.01 K/cumm NEEL Comment:Testing performed by : [address] [address] Blood Venous blood specimen / Unknown 09/30/2024 4:01 PM CDT 09/30/2024 4:06 PM CDT Radha Yessenia DO LAB BLOOD ORDERABLES Final Resu lt Performing Organization Address City/[facility]/ZIP Co de Phone Number [address] [place] [address] * Lipase (09/30/2024 4:01 PM CDT) Lipase 51 10 - 99 Units/L Comment:Testing performed by : [address] [address] Blood Venous blood specimen / Unknown 09/30/2024 4:01 PM CDT 09/30/2024 4:06 PM CDT Radha Casas LAB BLOOD ORDERABLES Final Resu lt Performing Organization Address [facility] Co de Phone Number [address] [address] * Comprehensive metabolic panel (09/30/2024 4:01 PM CDT) Pathologist [facility] Sodium 141 135 - 145 mmol/L Comment:Testing performed by : [address] [address] Potassium, pl 4.0 3.3 - 4.9 mmol/L NEEL Comment:Testing performed by : [address] [address] Chloride 106 97 - 110 mmol/L NEEL Comment:Testing performed by : [address] [address] CO2 24 22 - 32 mmol/L NEEL Comment:Testing performed by : [address] [address] Anion gap 11 2 - 15 mmol/L NEEL Comment:Testing performed by : [address] [address] BUN 9 6 - 25 mg/dL NEEL Comment:Testing performed by : [address] [address] Creatinine 1.00 0.80 - 1.30 mg/dL NEEL Comment:Testing performed by : [address] [address] Glucose 107 70 - 199 mg/dL NEEL [...] was last revised 2022. Testing performed by: [address] [address] Calcium 9.6 8.5 - 10.3 mg/dL NEEL Comment:Testing performed by : [address] [address] Bilirubin, total 0.4 0.1 - 1.2 mg/dL NEEL Comment:Testing performed by : [address] [address] Protein, pl 7.1 6.5 - 8.5 g/dL NEEL Comment:Testing performed by : [address] [address] Albumin 4.3 3.5 - 5.0 g/dL [facility] Comment:Testing performed by : [address] [address] Alk phos 87 40 - 130 Units/L NEEL Comment:Testing performed by : [address] [address] ALT 25 7 - 55 Units/L NEEL Comment:Testing performed by : [address] [address] AST 25 10 - 50 Units/L NEEL Comment:Testing performed by : [facility] [address] [place] [address], [place]., [address] Blood 09/30/2024 4:01 PM CDT 09/30/2024 4:06 PM CDT Radha Casas DO LAB BLOOD ORDERABLES Final Resu lt NEEL [address] [facility] Department [place] [address] * CT Abdomen Pelvis W Contrast (08/16/2024 4:01 AM CDT) Anatomical Region Laterality Modality Body N/A Computed Tomogra phy 08/16/2024 8:08 AM CDT Impressions 08/16/2024 8:36 AM CDT Markedly distended stomach with ingested contents without evidence of obstructing lesion. Preliminary results were given by the tele-radiologist environmental projects advisor Dr. Olivera Dictated by: Mario Newsome MD [...] Preliminary results were given by the tele-radiologist environmental projects advisor Dr. Olivera Dictated by: Mario Newsome MD [...] Burgess MD LAB BLOOD ORDERABLES Final Result [facility] [address] [facility]. Department [place] [address] * (ABNORMAL) Differential, auto (08/16/2024 3:42 AM [...] on 2017. Eosinophil pct 0.9 % NEEL [facility] Comment: Interpretive Data Percent cell count reference ranges are not reported, since discordance with absolute values may lead to misinterpretation of CBC data. Current Interpretive Data was last revised on 2017. Basophil pct 0.5 % NEEL [facility] Comment: Interpretive Data Percent cell count reference ranges are not reported, since discordance with absolute values may lead to misinterpretation of CBC data. Current Interpretive Data was last revised on 2017. Blood 08/16/2024 3:42 AM CDT 08/16/2024 4:15 AM CDT us Ashlie Burgess MD LAB BLOOD ORDERABLES Final Result NEEL [facility] [address] [facility]. Department [place] [address] * (ABNORMAL) CBC with auto differential (08/16/2024 3:42 AM CDT) WBC 18.64(H) 3.80 - 9.90 K/cumm Hgb 14.6 13.0 - 17.5 g/dL NEEL [facility] Hct 43.6 38.9 - 50.3 % NEEL [facility] Plt 325 150 - 400 K/cumm NEEL [facility] MPV 10.0 9.1 - 12.3 fL NEEL [facility] RBC 5.23 4.30 - 5.80 M/cumm NEEL [facility] MCV 83.4 81.3 - 96.4 fL NEEL [facility] MCH 27.9 27.1 - 33.3 pg NEEL [facility] MCHC 33.5 32.3 - 35.7 g/dL [facility] RDW CV 15.9(H) 11.1 - 14.9 % [facility] RDW SD 48.6(H) 35.7 - 48.1 [facility] NR[facility] abs 0.00 0.00 - 0.01 [facility] Blood Venous blood specimen / Unknown 08/16/2024 3:42 AM CDT 08/16/2024 4:15 AM CDT Ashlie Burgess MD LAB BLOOD ORDERABLES Final Result Performing Organization Address City/[facility]/ZIP Co de Phone Number NEEL [facility] [address] [facility] [place] [address] * Lipase (08/16/2024 3:42 AM CDT) [facility] Lipase 32 10 - 99 Units/L Blood Venous blood specimen / Unknown 08/16/2024 3:42 AM CDT 08/16/2024 4:15 AM CDT Ashlie Burgess MD LAB BLOOD ORDERABLES Final Result Performing Organization Address [facility] de Phone Number NEEL [facility] [address] [facility] [place] [address] * Comprehensive metabolic panel (08/16/2024 3:42 AM CDT) Pathologist [facility] Sodium 139 135 - 145 mmol/L Potassium, pl 4.1 3.3 - 4.9 mmol/L [facility] Chloride 100 97 - 110 mmol/L [facility] CO2 24 22 - 32 mmol/L [facility] Anion gap 15 2 - 15 mmol/L [facility] BUN 10 6 - 25 mg/dL [facility] Creatinine 0.97 0.80 - 1.30 mg/dL [facility] Glucose 116 70 - 199 mg/dL [facility] Comment: Interpretive Data Fasting glucose >/= [...] BLOOD ORDERABLES Final Result Performing Organization Address City/[facility]/ZIP Co de Phone Number NEEL [facility] [address] [facility]. [place] [address] * Sepsis Lactate w/ Reflex (08/13/2024 5:52 PM CDT) [facility] Sepsis Lactate 1.1 0.7 - 2.0 mmol/L Blood 08/13/2024 5:52 PM CDT 08/13/2024 5:58 PM CDT us Crista Bower MD LAB BLOOD ORDERABLES Final Result NEEL [facility] [address] [facility] [place] [address] * eGFR (08/13/2024 4:29 PM CDT) [facility] eGFR >90 >=60 mL/min/1. 73 m2 [...] Bower MD LAB BLOOD ORDERABLES Final Result [facility] [address] Department [place] [address] * (ABNORMAL) Differential, auto (08/13/2024 4:29 PM CDT) [facility] Neutrophil abs 15.65(H) 1.50 - 6.50 K/cumm Imm gran abs 0.09 0.00 - 0.10 K/cumm [facility] Lymphocyte abs 1.38 0.80 - 3.30 K/cumm [facility] Monocyte abs 1.33(H) 0.20 - 0.80 K/cumm [facility] Eosinophil abs 0.09 0.00 - 0.50 K/cumm [facility] Basophil abs 0.05 0.00 - 0.10 K/cumm [facility] Neutrophil pct 84.1 % [facility] Comment: Interpretive Data Percent cell count reference ranges are not reported, since discordance with absolute values may lead to misinterpretation of CBC data. Current Interpretive Data was last revised on 2017. Imm gran pct 0.5 % [facility] Comment: Interpretive Data Percent cell count reference ranges are not reported, since discordance with absolute values may lead to misinterpretation of CBC data. Current Interpretive Data was last revised on 2017. Lymphocyte pct 7.4 % [facility] Comment: Interpretive Data Percent cell count reference ranges are not reported, since discordance with absolute values may lead to misinterpretation of CBC data. Current Interpretive Data was last revised on 2017. Monocyte pct 7.2 % [facility] Comment: Interpretive Data Percent cell count reference ranges are not reported, since discordance with absolute values may lead to misinterpretation of CBC data. Current Interpretive Data was last revised on 2017. Eosinophil pct 0.5 % [facility] Comment: Interpretive Data Percent cell count reference ranges are not reported, since discordance with absolute values may lead to misinterpretation of CBC data. Current Interpretive Data was last revised on 2017. Basophil pct 0.3 % [facility] Comment: Interpretive Data Percent cell count reference ranges are not reported, since discordance with absolute values may lead to misinterpretation of CBC data. Current Interpretive Data was last revised on 2017. Blood 08/13/2024 4:29 PM CDT 08/13/2024 4:38 PM CDT us Crista Bower MD LAB BLOOD ORDERABLES Final Result [facility] [address] Department [place] [address] * (ABNORMAL) CBC with auto differential (08/13/2024 4:29 PM CDT) WBC 18.59(H) 3.80 - 9.90 K/cumm Hgb 14.6 13.0 - 17.5 g/dL [facility] Hct 43.7 38.9 - 50.3 % [facility] Plt 335 150 - 400 K/cumm [facility] MPV 10.0 9.1 - 12.[address] [facility] RBC 5.15 4.30 - 5.80 M/cumm [facility] MCV 84.9 81.3 - 96.[address] [facility] MCH 28.3 27.1 - 33.[address] [facility] MCHC 33.4 32.3 - 35.7 g/dL [facility] RDW CV 15.9(H) 11.1 - 14.9 % [facility] RDW SD 49.5(H) 35.7 - 48.[address] [facility] NRBC abs 0.00 0.00 - 0.01 K/cumm [facility] Blood Venous blood specimen / Unknown 08/13/2024 4:29 PM CDT 08/13/2024 4:38 PM CDT us Crista Bower MD LAB BLOOD ORDERABLES Final Result Performing Organization Address [facility]/ZIP Co de Phone Number [facility] [address] [employer] [address] * Lipase (08/13/2024 4:29 PM CDT) Pathologist [facility] Lipase 20 10 - 99 Units/L Blood Venous blood specimen / Unknown 08/13/2024 4:29 PM CDT 08/13/2024 4:38 PM CDT us Crista Bower MD LAB BLOOD ORDERABLES Final Result Performing Organization Address City/[facility]/ZIP Co de Phone Number [facility] [address] [employer] [address] * (ABNORMAL) Comprehensive metabolic panel (08/13/2024 4:29 PM CDT) [facility] Sodium 138 135 - 145 mmol/L Potassium, pl 4.0 3.3 - 4.9 mmol/L [facility] Chloride 104 97 - 110 mmol/L [facility] CO2 21(L) 22 - 32 mmol/L [facility] Anion gap 13 2 - 15 mmol/L [facility] BUN 8 6 - 25 mg/dL [facility] Creatinine 0.91 0.80 - 1.30 mg/dL [facility] Glucose 118 70 - 199 mg/dL [facility] Comment: Interpretive Data Fasting glucose >/= [...] 2022. Calcium 9.3 8.5 - 10.3 mg/dL [facility] Bilirubin, total 0.4 0.1 - 1.2 mg/dL [facility] Protein, pl 7.2 6.5 - 8.5 g/dL [facility] Albumin 4.1 3.5 - 5.0 g/dL [facility] Alk phos 86 40 - 130 Units/L [facility] ALT 25 7 - 55 Units/L [facility] AST 22 10 - 50 Units/L [facility] Blood 08/13/2024 4:29 PM CDT 08/13/2024 4:38 PM CDT us Crista Bower MD LAB BLOOD ORDERABLES Final Result [facility] [address] Department [place] [address] * eGFR (08/12/2024 10:58 AM CDT) eGFR [...] MD LAB BLOOD ORDERABLES Final R esult [facility] [address] Department [place] [address] * (ABNORMAL) CBC without differential (08/12/2024 10:58 AM CDT) WBC 7.15 3.80 - 9.90 K/cumm Hgb 13.4 13.0 - 17.5 g/dL [facility] Hct 41.3 38.9 - 50.3 % [facility] Plt 301 150 - 400 K/cumm [facility] MPV 10.1 9.1 - 12.[address] [facility] RBC 4.81 4.30 - 5.80 M/cumm [facility] MCV 85.9 81.3 - 96.[address] [facility] MCH 27.9 27.1 - 33.[address] [facility] MCHC 32.4 32.3 - 35.7 g/dL [facility] RDW CV 16.1(H) 11.1 - 14.9 % [facility] RDW SD 50.2(H) 35.7 - 48.[address] [facility] NRBC abs 0.00 0.00 - 0.01 K/cumm [facility] Blood 08/12/2024 10:5 8 AM CDT 08/12/2024 11:33 AM CDT Reinaldo Avitia MD LAB BLOOD ORDERABLES Final R esult Performing Organization Address City/[facility]/ZIP Co de Phone Number [facility] [address] [employer] [address] * (ABNORMAL) Basic metabolic panel (08/12/2024 10:58 AM CDT) Sodium 139 135 - 145 mmol/L Potassium, pl 4.3 3.3 - 4.9 mmol/L [facility] Chloride 105 97 - 110 mmol/L [facility] CO2 21(L) 22 - 32 mmol/L [facility] Anion gap 13 2 - 15 mmol/L [facility] BUN 6 6 - 25 mg/dL [facility] Creatinine 0.92 0.80 - 1.30 mg/dL [facility] Glucose 130 70 - 199 mg/dL [facility] Comment: Interpretive Data Fasting glucose >/= [...] 2022. Calcium 8.7 8.5 - 10.3 mg/dL [facility] Blood 08/12/2024 10:5 8 AM CDT 08/12/2024 11:33 AM CDT Reinaldo Avitia MD LAB BLOOD ORDERABLES Final R esult Performing Organization Address City/[facility]/ZIP Co de Phone Number [facility] [address] [place] [address] * EGD (08/11/2024 3:25 PM CDT) Anatomical Region Laterality Modality Other Narrative Procedure Note Georges Luna MD - 08/11/2024 3:25 PM CDT ENDOSCOPY LAB Patient Name: Donovan Bailey Procedure Date: 08/11/2024 3:25 PM Admit Type: Inpatient Room: [facility] Date of : 1980 Instrument [...] DO LAB BLOOD ORDERABLES F inal Result [facility] [address] Department [place] [address] * (ABNORMAL) Differential, auto (08/11/2024 6:15 AM CDT) Neutrophil abs 2.30 1.50 - 6.50 K/cumm Imm gran abs 0.01 0.00 - 0.10 K/cumm [facility] Lymphocyte abs 3.06 0.80 - 3.30 K/cumm [facility] Monocyte abs 0.99(H) 0.20 - 0.80 K/cumm [facility] Eosinophil abs 0.24 0.00 - 0.50 K/cumm [facility] Basophil abs 0.06 0.00 - 0.10 K/cumm [facility] Neutrophil pct 34.5 % [facility] Comment: Interpretive Data Percent cell count reference ranges are not reported, since discordance with absolute values may lead to misinterpretation of CBC data. Current Interpretive Data was last revised on 2017. Imm gran pct 0.2 % [facility] Comment: Interpretive Data Percent cell count reference ranges are not reported, since discordance with absolute values may lead to misinterpretation of CBC data. Current Interpretive Data was last revised on 2017. Lymphocyte pct 45.9 % [facility] Comment: Interpretive Data Percent cell count reference ranges are not reported, since discordance with absolute values may lead to misinterpretation of CBC data. Current Interpretive Data was last revised on 2017. Monocyte pct 14.9 % [facility] Comment: Interpretive Data Percent cell count reference ranges are not reported, since discordance with absolute values may lead to misinterpretation of CBC data. Current Interpretive Data was last revised on 2017. Eosinophil pct 3.6 % [facility] Comment: Interpretive Data Percent cell count reference ranges are not reported, since discordance with absolute values may lead to misinterpretation of CBC data. Current Interpretive Data was last revised on 2017. Basophil pct 0.9 % [facility] Comment: Interpretive Data Percent cell count reference ranges are not reported, since discordance with absolute values may lead to misinterpretation of CBC data. Current Interpretive Data was last revised on 2017. Blood 08/11/2024 6:15 AM CDT 08/11/2024 6:54 AM CDT Chris Villatoro LAB BLOOD ORDERABLES F inal Result Performing Organization Address [facility] Co de Phone Number [facility] [address] [place] [address] * (ABNORMAL) CBC with auto differential (08/11/2024 6:15 AM CDT) [facility] WBC 6.66 3.80 - 9.90 K/cumm Hgb 12.2(L) 13.0 - 17.5 g/dL [facility] Hct 37.8(L) 38.9 - 50.3 % [facility] Plt 274 150 - 400 K/cumm [facility] MPV 10.2 9.1 - 12.[address] [facility] RBC 4.38 4.30 - 5.80 M/cumm [facility] MCV 86.3 81.3 - 96.[address] [facility] MCH 27.9 27.1 - 33.[address] [facility] MCHC 32.3 32.3 - 35.7 g/dL [facility] RDW CV 16.3(H) 11.1 - 14.9 % [facility] RDW SD 51.3(H) 35.7 - 48.[address] [facility] NRBC abs 0.00 0.00 - 0.01 K/cumm [facility] Blood 08/11/2024 6:15 AM CDT 08/11/2024 6:54 AM CDT Chris Villatoro DO LAB BLOOD ORDERABLES F inal Result Performing Organization Address [facility] Co de Phone Number [facility] [address] Department [place] [address] * Magnesium (08/11/2024 6:15 AM CDT) Pathologist [facility] Magnesium 2.2 1.4 - 2.5 mg/dL Blood 08/11/2024 6:15 AM CDT 08/11/2024 6:53 AM CDT [facility] LAB BLOOD ORDERABLES F inal Result Performing Organization Address City/[facility]/ZIP Co de Phone Number [facility] [address] [employer] [address] * Basic metabolic panel (08/11/2024 6:15 AM CDT) [facility] Sodium 139 135 - 145 mmol/L Potassium, pl 4.0 3.3 - 4.9 mmol/L [facility] Chloride 107 97 - 110 mmol/L [facility] CO2 24 22 - 32 mmol/L [facility] Anion gap 8 2 - 15 mmol/L [facility] BUN 6 6 - 25 mg/dL [facility] Creatinine 0.81 0.80 - 1.30 mg/dL [facility] Glucose 88 70 - 199 mg/dL [facility] Comment: Interpretive Data Fasting glucose >/= [...] 2022. Calcium 8.5 8.5 - 10.3 mg/dL [facility] Blood 08/11/2024 6:15 AM CDT 08/11/2024 6:53 AM CDT Chris Villatoro LAB BLOOD ORDERABLES F inal Result Performing Organization Address City/[facility]/ZIP Co de Phone Number [facility] [address] [place] [address] * CT Abdomen Pelvis W Contrast (08/10/2024 [...] above. For the purposes of quality assurance technician, this study was initially interpreted by teleradiology. [...] above. For the purposes of quality assurance technician, this study was initially interpreted by teleradiology. [...] MD LAB BLOOD ORDERABLES Final R esult [facility] [address] Department [place] [address] * (ABNORMAL) Differential, auto (08/10/2024 3:54 AM CDT) Neutrophil abs 18.28(H) 1.50 - 6.50 K/cumm Imm gran abs 0.10 0.00 - 0.10 K/cumm [facility] Lymphocyte abs 1.52 0.80 - 3.30 K/cumm [facility] Monocyte abs 1.50(H) 0.20 - 0.80 K/cumm [facility] Eosinophil abs 0.12 0.00 - 0.50 K/cumm [facility] Basophil abs 0.08 0.00 - 0.10 K/cumm [facility] Neutrophil pct 84.6 % [facility] Comment: Interpretive Data Percent cell count reference ranges are not reported, since discordance with absolute values may lead to misinterpretation of CBC data. Current Interpretive Data was last revised on 2017. Imm gran pct 0.5 % [facility] Comment: Interpretive Data Percent cell count reference ranges are not reported, since discordance with absolute values may lead to misinterpretation of CBC data. Current Interpretive Data was last revised on 2017. Lymphocyte pct 7.0 % [facility] Comment: Interpretive Data Percent cell count reference ranges are not reported, since discordance with absolute values may lead to misinterpretation of CBC data. Current Interpretive Data was last revised on 2017. Monocyte pct 6.9 % [facility] Comment: Interpretive Data Percent cell count reference ranges are not reported, since discordance with absolute values may lead to misinterpretation of CBC data. Current Interpretive Data was last revised on 2017. Eosinophil pct 0.6 % [facility] Comment: Interpretive Data Percent cell count reference ranges are not reported, since discordance with absolute values may lead to misinterpretation of CBC data. Current Interpretive Data was last revised on 2017. Basophil pct 0.4 % [facility] Comment: Interpretive Data Percent cell count reference ranges are not reported, since discordance with absolute values may lead to misinterpretation of CBC data. Current Interpretive Data was last revised on 2017. Blood 08/10/2024 3:54 AM CDT 08/10/2024 4:06 AM CDT us Domenic Arias MD LAB BLOOD ORDERABLES Final R esult [facility] [address] Department [place] [address] * (ABNORMAL) CBC with auto differential (08/10/2024 3:54 AM CDT) WBC 21.60(H) 3.80 - 9.90 K/cumm Hgb 14.0 13.0 - 17.5 g/dL [facility] Hct 43.0 38.9 - 50.3 % [facility] Plt 333 150 - 400 K/cumm [facility] MPV 10.0 9.1 - 12.[address] [facility] RBC 5.07 4.30 - 5.80 M/cumm [facility] MCV 84.8 81.3 - 96.[address] [facility] MCH 27.6 27.1 - 33.[address] [facility] MCHC 32.6 32.3 - 35.7 g/dL [facility] RDW CV 16.4(H) 11.1 - 14.9 % [facility] RDW SD 50.1(H) 35.7 - 48.[address] [facility] NRBC abs 0.00 0.00 - 0.01 K/cumm [facility] Blood Venous blood specimen / Unknown 08/10/2024 3:54 AM CDT 08/10/2024 4:06 AM CDT Domenic Arias MD LAB BLOOD ORDERABLES Final R esult [facility] [address] [employer] [place], [place] [id number] * Lipase (08/10/2024 3:54 AM CDT) Pathologist [facility] Lipase 27 10 - 99 Units/L Blood Venous blood specimen / Unknown 08/10/2024 3:54 AM CDT 08/10/2024 4:06 AM CDT Domenic Arias MD LAB BLOOD ORDERABLES Final R esult Performing Organization Address City/[facility] Co de Phone Number [facility] [address] [employer] [address] * (ABNORMAL) Comprehensive metabolic panel (08/10/2024 3:54 AM CDT) Pathologist [facility] Sodium 132(L) 135 - 145 mmol/L Potassium, pl 3.9 3.3 - 4.9 mmol/L [facility] Chloride 96(L) 97 - 110 mmol/L [facility] CO2 20(L) 22 - 32 mmol/L [facility] Anion gap 16(H) 2 - 15 mmol/L [facility] BUN 7 6 - 25 mg/dL [facility] Creatinine 0.95 0.80 - 1.30 mg/dL [facility] Glucose 124 70 - 199 mg/dL [facility] Comment: Interpretive Data Fasting glucose >/= [...] 2022. Calcium 9.2 8.5 - 10.3 mg/dL [facility] Bilirubin, total 0.4 0.1 - 1.2 mg/dL [facility] Protein, pl 7.1 6.5 - 8.5 g/dL [facility] Albumin 4.5 3.5 - 5.0 g/dL [facility] Alk phos 81 40 - 130 Units/L [facility] ALT 23 7 - 55 Units/L [facility] AST 24 10 - 50 Units/L [facility] Comment:Slightly Hemolyzed S pecimen Blood 08/10/2024 3:54 AM CDT 08/10/2024 4:06 AM CDT us Domenic Arias MD LAB BLOOD ORDERABLES Final R esult [facility] [address] Department [place] [address] * eGFR (08/07/2024 3:20 AM CDT) eGFR [...] MD LAB BLOOD ORDERABLES Fi nal Result [facility] [address] Department [place] [address] * (ABNORMAL) Differential, auto (08/07/2024 3:20 AM CDT) Neutrophil abs 8.4(H) 1.5 - 6.5 K/cumm Imm gran abs 0.0 0.0 - 0.1 K/cumm [facility] Lymphocyte abs 1.5 0.8 - 3.3 K/cumm [facility] Monocyte abs 1.3(H) 0.2 - 0.8 K/cumm [facility] Eosinophil abs 0.1 0.0 - 0.5 K/cumm [facility] Basophil abs 0.1 0.0 - 0.1 K/cumm [facility] Neutrophil pct 74.1 % [facility] Comment: Interpretive Data Percent cell count reference ranges are not reported, since discordance with absolute values may lead to misinterpretation of CBC data. Current Interpretive Data was last revised on 2017. Imm gran pct 0.4 % [facility] Comment: Interpretive Data Percent cell count reference ranges are not reported, since discordance with absolute values may lead to misinterpretation of CBC data. Current Interpretive Data was last revised on 2017. Lymphocyte pct 13.4 % [facility] Comment: Interpretive Data Percent cell count reference ranges are not reported, since discordance with absolute values may lead to misinterpretation of CBC data. Current Interpretive Data was last revised on 2017. Monocyte pct 11.3 % [facility] Comment: Interpretive Data Percent cell count reference ranges are not reported, since discordance with absolute values may lead to misinterpretation of CBC data. Current Interpretive Data was last revised on 2017. Eosinophil pct 0.4 % [facility] Comment: Interpretive Data Percent cell count reference ranges are not reported, since discordance with absolute values may lead to misinterpretation of CBC data. Current Interpretive Data was last revised on 2017. Basophil pct 0.4 % [facility] Comment: Interpretive Data Percent cell count reference ranges are not reported, since discordance with absolute values may lead to misinterpretation of CBC data. Current Interpretive Data was last revised on 2017. Blood 08/07/2024 3:20 AM CDT 08/07/2024 3:44 AM CDT us Justice Patel MD LAB BLOOD ORDERABLES Fi nal Result [facility] [address] Department [place] [address] * (ABNORMAL) CBC with auto differential (08/07/2024 3:20 AM CDT) WBC 11.3(H) 3.8 - 9.9 K/cumm Hgb 12.9(L) 13.0 - 17.5 g/dL [facility] Hct 39.6 38.9 - 50.3 % [facility] Plt 294 150 - 400 K/cumm [facility] MPV 9.8 9.1 - 12.[address] [facility] RBC 4.63 4.30 - 5.80 M/cumm [facility] MCV 85.5 81.3 - 96.[address] [facility] MCH 27.9 27.1 - 33.[address] [facility] MCHC 32.6 32.3 - 35.7 g/dL [facility] RDW CV 16.4(H) 11.1 - 14.9 % [facility] RDW SD 51.0(H) 35.7 - 48.[address] [facility] NRBC abs 0.00 0.00 - 0.01 K/cumm [facility] Blood 08/07/2024 3:20 AM CDT 08/07/2024 3:44 AM CDT Justice Patel MD LAB BLOOD ORDERABLES Fi nal Result Performing Organization Address City/[facility]/ZIP Co de Phone Number [facility] [address] [facility] [place] [address] * Lipase (08/07/2024 3:20 AM CDT) Pathologist [facility] Lipase 40 10 - 99 Units/L Blood 08/07/2024 3:20 AM CDT 08/07/2024 3:45 AM CDT Justice Patel MD LAB BLOOD ORDERABLES Fi nal Result Performing Organization Address [facility] de Phone Number [facility] [address] [facility] [place] [address] * (ABNORMAL) Comprehensive metabolic panel (08/07/2024 3:20 AM CDT) [facility] Sodium 138 135 - 145 mmol/L Potassium, pl 3.9 3.3 - 4.9 mmol/L [facility] Chloride 103 97 - 110 mmol/L [facility] CO2 21(L) 22 - 32 mmol/L [facility] Anion gap 14 2 - 15 mmol/L [facility] BUN 9 6 - 25 mg/dL [facility] Creatinine 0.92 0.80 - 1.30 mg/dL [facility] Glucose 107 70 - 199 mg/dL [facility] Comment: Interpretive Data Fasting glucose >/= [...] 2022. Calcium 8.8 8.5 - 10.3 mg/dL [facility] Bilirubin, total 0.6 0.1 - 1.2 mg/dL [facility] Protein, pl 6.3(L) 6.5 - 8.5 g/dL [facility] Albumin 4.1 3.5 - 5.0 g/dL [facility] Alk phos 74 40 - 130 Units/L [facility] ALT 23 7 - 55 Units/L [facility] AST 24 10 - 50 Units/L [facility] Comment:Slightly Hemolyzed S pecimen Blood 08/07/2024 3:20 AM CDT 08/07/2024 3:45 AM CDT Justice Patel MD LAB BLOOD ORDERABLES Fi nal Result [facility] [address] Department [place] [address] * SCAN - RADIOLOGY/IMAGING (08/05/2024) Anatomical Region Laterality Modality Other us Provider Scanning Final Result * Urinalysis reflex to microscopic and culture Urine (08/03/2024 1:50 PM CDT) Color, ur Yellow Yellow Comment:Testing performed by : [address] [address] Clarity, ur Clear Clear NEEL Comment:Testing performed by : [address] [address] Specific gravity, ur 1.009 1.003 - 1.030 NEEL Comment:Testing performed by : [address] [address] pH, urine 7.0 NEEL Comment: Interpretive Data U rine pH is affected by diet, medications, systemic acid-base disturbances, and renal tubular function. pH may affect urinary stone formation. For example, urine pH below 6.0 may help reduce the tendency for calcium phosphate stones and pH greater than 6.0 may reduce the tendency for uric acid stone formation. Source: [facility] Current Interpretive Data was last revised on 2017 Testing performed by: [facility], [address] [place] [address], [place]., [address] Protein, ur ql Negative Negative NEEL Comment:Testing performed by : [facility], [address] [place] [address], [place]., [address] Glucose, ur ql Negative Negative NEEL Comment:Testing performed by : [address], [place]., [address] Ketones, ur Negative Negative NEEL Comment:Testing performed by : [address], [place]., [address] Bilirubin, ur Negative Negative NEEL Comment:Testing performed by : [address], [place]., [address] Blood, ur Negative Negative NEEL Comment:Testing performed by : [address], [place]., [address] Urobilinogen, ur <2.0 <2.0 mg/dL NEEL Comment:Testing performed by : [address], [place]., [address] Nitrite, ur Negative Negative NEEL Comment:Testing performed by : [address], [place]., [address] Leukocyte esterase, ur Negative Negative NEEL Comment:Testing performed by : [address], [place]., [address] UA reflex comment Reflex conditions for microscopic UA and culture not met. NEEL Comment:Testing performed by : [address] [address] Urine 08/03/2024 1:50 PM CDT 08/03/2024 1:53 PM CDT us Freddy Yao DO LAB MICROBIOLOGY - GENERAL ORDERABLES Final Result NEEL SMITH [address] [facility] Department [place] [address] * eGFR (08/03/2024 1:45 PM [...] was last reviewed 2021. Testing performed by: [address] [address] Blood 08/03/2024 1:45 PM CDT 08/03/2024 1:53 PM CDT us Freddy Yao DO LAB BLOOD ORDERABLES Final Result NEEL [address] [facility] Department [place] [address] * (ABNORMAL) Differential, auto (08/03/2024 1:45 PM CDT) Neutrophil abs 7.8(H) 1.5 - 6.5 K/cumm Comment:Testing performed by : [address] [address] Imm gran abs 0.1 0.0 - 0.1 K/cumm NEEL SMITH Comment:Testing performed by : [address] [address] Lymphocyte abs 2.5 0.8 - 3.3 K/cumm NEEL SMITH Comment:Testing performed by : [address] [address] Monocyte abs 1.4(H) 0.2 - 0.8 K/cumm NEEL Comment:Testing performed by : [address] [address] Eosinophil abs 0.1 0.0 - 0.5 K/cumm NEEL Comment:Testing performed by : [address] [address] Basophil abs 0.1 0.0 - 0.1 K/cumm [facility] Comment:Testing performed by : [address] [address] Neutrophil pct 65.5 % [facility] Comment: Interpretive Data Percent cell count reference ranges are not reported, since discordance with absolute values may lead to misinterpretation of CBC data. Current Interpretive Data was last revised on 2017. Testing performed by: [address] [address] Imm gran pct 0.5 % [facility] Comment: Interpretive Data Percent cell count reference ranges are not reported, since discordance with absolute values may lead to misinterpretation of CBC data. Current Interpretive Data was last revised on 2017. Testing performed by: [address] [address] Lymphocyte pct 21.0 % [facility] Comment: Interpretive Data Percent cell count reference ranges are not reported, since discordance with absolute values may lead to misinterpretation of CBC data. Current Interpretive Data was last revised on 2017. Testing performed by: [address] [address] Monocyte pct 11.6 % [facility] Comment: Interpretive Data Percent cell count reference ranges are not reported, since discordance with absolute values may lead to misinterpretation of CBC data. Current Interpretive Data was last revised on 2017. Testing performed by: [address] [address] Eosinophil pct 0.8 % [facility] Comment: Interpretive Data Percent cell count reference ranges are not reported, since discordance with absolute values may lead to misinterpretation of CBC data. Current Interpretive Data was last revised on 2017. Testing performed by: [address] [address] Basophil pct 0.6 % NEEL Comment: Interpretive Data Percent cell count reference ranges are not reported, since discordance with absolute values may lead to misinterpretation of CBC data. Current Interpretive Data was last revised on 2017. Testing performed by: [address] [address] Blood 08/03/2024 1:45 PM CDT 08/03/2024 1:53 PM CDT us Freddy Yao DO LAB BLOOD ORDERABLES Final Result [facility] [address] [facility] Department [place] [address] * (ABNORMAL) CBC with auto differential (08/03/2024 1:45 PM CDT) WBC 11.9(H) 3.8 - 9.9 K/cumm Comment:Testing performed by : [address] [address] Hgb 13.3 13.0 - 17.5 g/dL NEEL Comment:Testing performed by : [address] [address] Hct 40.4 38.9 - 50.3 % NEEL Comment:Testing performed by : [address] [address] Plt 333 150 - 400 K/cumm NEEL Comment:Testing performed by : [address] [address] MPV 10.3 9.1 - 12.3 fL NEEL Comment:Testing performed by : [address] [address] RBC 4.81 4.30 - 5.80 M/cumm NEEL Comment:Testing performed by : [address] [address] MCV 84.0 81.3 - 96.4 fL NEEL Comment:Testing performed by : [address] [address] MCH 27.7 27.1 - 33.3 pg NEEL SMITH Comment:Testing performed by : [facility], [address] [place] [address]., [address] MCHC 32.9 32.3 - 35.7 g/dL NEEL SMITH Comment:Testing performed by : [address] [address] RDW CV 16.4(H) 11.1 - 14.9 % NEEL SMITH Comment:Testing performed by : [address] [address] RDW SD 50.0(H) 35.7 - 48.1 fL NEEL SMITH Comment:Testing performed by : [address] [address] NRBC abs 0.00 0.00 - 0.01 K/cumm NEEL SMITH Comment:Testing performed by : [address] [address] Blood Venous blood specimen / Unknown 08/03/2024 1:45 PM CDT 08/03/2024 1:53 PM CDT Freddy Yao DO LAB BLOOD ORDERABLES Final Result Performing Organization Address City/[facility]/ZIP Co de Phone Number [address] [place] [address] * Lipase (08/03/2024 1:45 PM CDT) Lipase 58 10 - 99 Units/L Comment:Testing performed by : [address], [address] Blood Venous blood specimen / Unknown 08/03/2024 1:45 PM CDT 08/03/2024 1:53 PM CDT Freddy Yao DO LAB BLOOD ORDERABLES Final Result [address] [address] * Comprehensive metabolic panel (08/03/2024 1:45 PM CDT) Sodium 142 135 - 145 mmol/L Comment:Testing performed by : [facility], [address] [place] [address], [place]., [address] Potassium, pl 3.9 3.3 - 4.9 mmol/L NEEL Comment:Testing performed by : [address], [place]., [address] Chloride 108 97 - 110 mmol/L NEEL Comment:Testing performed by : [address], [place]., [address] CO2 23 22 - 32 mmol/L NEEL Comment:Testing performed by : [address], [place]., [address] Anion gap 11 2 - 15 mmol/L NEEL Comment:Testing performed by : [address], [place]., [address] BUN 9 6 - 25 mg/dL NEEL Comment:Testing performed by : [address], [place]., [address] Creatinine 0.90 0.80 - 1.30 mg/dL NEEL Comment:Testing performed by : [address], [place]., [address] Glucose 107 70 - 199 mg/dL [facility] was last revised 2022. Testing performed by: [address], [place]., [address] Calcium 9.4 8.5 - 10.3 mg/dL NEEL Comment:Testing performed by : [address], [place]., [address] Bilirubin, total 0.3 0.1 - 1.2 mg/dL NEEL Comment:Testing performed by : [address] [address] Protein, pl 7.1 6.5 - 8.5 g/dL NEEL SMITH Comment:Testing performed by : [address] [address] Albumin 4.3 3.5 - 5.0 g/dL NEEL SMITH Comment:Testing performed by : [address] [address] Alk phos 80 40 - 130 Units/L NEEL Comment:Testing performed by : [address] [address] ALT 23 7 - 55 Units/L NEEL Comment:Testing performed by : [address] [address] AST 32 10 - 50 Units/L NEEL Comment:Testing performed by : [address] [address] Blood 08/03/2024 1:45 PM CDT 08/03/2024 1:53 PM CDT Freddy Yao DO LAB BLOOD ORDERABLES Final Result Performing Organization Address City/State/[facility] Co de Phone Number NEEL [address] [facility] Department [place] [address] * CT Abdomen Pelvis W Contrast (08/02/2024 [...] Priti Salmeron M.D. TW: JENNA Report ID: [id number] Reading Location: [id number] Procedure Note Priti Salmeron MD - 08/02/2024 [...] Priti Salmeron M.D. TW: JENNA Report ID: [id number] Reading Location: [id number] Vijaya LAWTON IMWilliam CT PROCEDURES Final Result * (ABNORMAL) Urinalysis reflex to microscopic and culture Urine (08/02/2024 8:48 AM CDT) Color, ur Yellow Yellow Comment:Testing performed by : [address] [address] Clarity, ur Clear Clear NEEL Comment:Testing performed by : [address] [address] Specific gravity, ur 1.025 1.003 - 1.030 NEEL Comment:Testing performed by : [address] [address] pH, urine 8.0 NEEL Comment: Interpretive Data U rine pH is affected by diet, medications, systemic acid-base disturbances, and renal tubular function. pH may affect urinary stone formation. For example, urine pH below 6.0 may help reduce the tendency for calcium phosphate stones and pH greater than 6.0 may reduce the tendency for uric acid stone formation. Source: [facility] Current Interpretive Data was last revised on 2017 Testing performed by: [address] [address] Protein, ur ql 1+(A) Negative NEEL Comment:Testing performed by : [address] [address] Glucose, ur ql Trace(A) Negative NEEL SMITH Comment:Testing performed by : [facility], [address] [place] [address], [place]., [address] Ketones, ur 2+(A) Negative NEEL SMITH Comment:Testing performed by : [facility], [address] [place] [address], [place]., [address] Bilirubin, ur Negative Negative NEEL Comment:Testing performed by : [address], [place]., [address] Blood, ur Negative Negative NEEL Comment:Testing performed by : [address], [place]., [address] Urobilinogen, ur <2.0 <2.0 mg/dL NEEL Comment:Testing performed by : [address], [place]., [address] Nitrite, ur Negative Negative NEEL Comment:Testing performed by : [address], [place]., [address] Leukocyte esterase, ur Negative Negative NEEL Comment:Testing performed by : [address], [place]., [address] UA reflex comment Reflex to microscopic UA will be performed. NEEL Comment:Testing performed by : [address], [place]., [address] Urine 08/02/2024 8:48 AM CDT 08/02/2024 8:54 AM CDT Freddy Yao DO LAB MICROBIOLOGY - GENERAL ORDERABLES Final Result NEEL [address] [facility] Department [place] [address] * (ABNORMAL) Urinalysis, microscopic only (08/02/2024 8:48 AM CDT) WBC, ur 0-5 0 - 5 /HPF Comment:Testing performed by : [address], [place]., [address] RBC, ur 0-2 0 - 2 /HPF NEEL SMITH Comment:Testing performed by : [address], [place]., [address] Epithelial cells, squamous, ur 1-5 0 - 5 /HPF NEEL Comment:Testing performed by : [address] [address] Mucous, ur Present(A) NEEL SMITH Comment:Testing performed by : [address] [address] Culture Reflex Comment Reflex conditions for urine culture (WBC >10) not met. NEEL Comment:Testing performed by : [address] [address] Urine 08/02/2024 8:48 AM CDT 08/02/2024 8:54 AM CDT us Freddy Yao DO LAB URINE ORDERABLES Final Result NEEL [address] [facility] Department [place] [address] * eGFR (08/02/2024 8:43 AM CDT) eGFR [...] was last reviewed 2021. Testing performed by: [address] [address] Blood 08/02/2024 8:43 AM CDT 08/02/2024 8:53 AM CDT us Freddy Yao DO LAB BLOOD ORDERABLES Final Result NEEL SMITH [address] [facility] Department [place] [address] * (ABNORMAL) Differential, auto (08/02/2024 8:43 AM CDT) Neutrophil abs 12.1(H) 1.5 - 6.5 K/cumm Comment:Testing performed by : [address] [address] Imm gran abs 0.1 0.0 - 0.1 K/cumm NEEL Comment:Testing performed by : [address] [address] Lymphocyte abs 0.9 0.8 - 3.3 K/cumm NEEL Comment:Testing performed by : [address] [address] Monocyte abs 0.7 0.2 - 0.8 K/cumm NEEL Comment:Testing performed by : [address] [address] Eosinophil abs 0.0 0.0 - 0.5 K/cumm NEEL Comment:Testing performed by : [address] [address] Basophil abs 0.0 0.0 - 0.1 K/cumm NEEL Comment:Testing performed by : [address] [address] Neutrophil pct 88.2 % NEEL Comment: Interpretive Data Percent cell count reference ranges are not reported, since discordance with absolute values may lead to misinterpretation of CBC data. Current Interpretive Data was last revised on 2017. Testing performed by: [address] [address] Imm gran pct 0.4 % NEEL Comment: Interpretive Data Percent cell count reference ranges are not reported, since discordance with absolute values may lead to misinterpretation of CBC data. Current Interpretive Data was last revised on 2017. Testing performed by: [address] [address] Lymphocyte pct 6.6 % [facility] Comment: Interpretive Data Percent cell count reference ranges are not reported, since discordance with absolute values may lead to misinterpretation of CBC data. Current Interpretive Data was last revised on 2017. Testing performed by: [address] [address] Monocyte pct 4.7 % [facility] Comment: Interpretive Data Percent cell count reference ranges are not reported, since discordance with absolute values may lead to misinterpretation of CBC data. Current Interpretive Data was last revised on 2017. Testing performed by: [address] [address] Eosinophil pct 0.0 % [facility] Comment: Interpretive Data Percent cell count reference ranges are not reported, since discordance with absolute values may lead to misinterpretation of CBC data. Current Interpretive Data was last revised on 2017. Testing performed by: [address] [address] Basophil pct 0.1 % [facility] Comment: Interpretive Data Percent cell count reference ranges are not reported, since discordance with absolute values may lead to misinterpretation of CBC data. Current Interpretive Data was last revised on 2017. Testing performed by: [address] [address] Blood 08/02/2024 8:43 AM CDT 08/02/2024 8:53 AM CDT us Freddy Yao DO LAB BLOOD ORDERABLES Final Result NEEL [address] [facility] Department [place] [address] * (ABNORMAL) CBC with auto differential (08/02/2024 8:43 AM CDT) WBC 13.7(H) 3.8 - 9.9 K/cumm Comment:Testing performed by : [address] [address] Hgb 12.9(L) 13.0 - 17.5 g/dL NEEL Comment:Testing performed by : [address] [address] Hct 38.3(L) 38.9 - 50.3 % NEEL Comment:Testing performed by : [address] [address] Plt 310 150 - 400 K/cumm NEEL Comment:Testing performed by : [address] [address] MPV 9.9 9.1 - 12.3 fL NEEL Comment:Testing performed by : [address], [address] RBC 4.63 4.30 - 5.80 M/cumm NEEL Comment:Testing performed by : [address] [address] MCV 82.7 81.3 - 96.4 fL NEEL Comment:Testing performed by : [address] [address] MCH 27.9 27.1 - 33.3 pg NEEL Comment:Testing performed by : [address] [address] MCHC 33.7 32.3 - 35.7 g/dL NEEL Comment:Testing performed by : [address] [address] RDW CV 15.9(H) 11.1 - 14.9 % NEEL Comment:Testing performed by : [address], [address] RDW SD 48.1 35.7 - 48.1 fL NEEL Comment:Testing performed by : [address] [address] NRBC abs 0.00 0.00 - 0.01 K/cumm NEEL Comment:Testing performed by : [address] [address] Blood Venous blood specimen / Unknown 08/02/2024 8:43 AM CDT 08/02/2024 8:53 AM CDT Freddy Yao DO LAB BLOOD ORDERABLES Final Result NEEL [address] [place] [address] * Lipase (08/02/2024 8:43 AM CDT) Lipase 28 10 - 99 Units/L Comment:Testing performed by : [address] [address] Blood Venous blood specimen / Unknown 08/02/2024 8:43 AM CDT 08/02/2024 8:53 AM CDT Freddy Yao DO LAB BLOOD ORDERABLES Final Result Performing Organization Address City/[facility] de Phone Number NEEL [address] [address] * Comprehensive metabolic panel (08/02/2024 8:43 AM CDT) Pathologist [facility] Sodium 143 135 - 145 mmol/L Comment:Testing performed by : [address] [address] Potassium, pl 3.9 3.3 - 4.9 mmol/L NEEL Comment:Testing performed by : [address] [address] Chloride 107 97 - 110 mmol/L NEEL Comment:Testing performed by : [address] [address] CO2 22 22 - 32 mmol/L NEEL Comment:Testing performed by : [address] [address] Anion gap 14 2 - 15 mmol/L NEEL Comment:Testing performed by : [address] [address] BUN 9 6 - 25 mg/dL NEEL Comment:Testing performed by : [address] [address] Creatinine 0.90 0.80 - 1.30 mg/dL NEEL Comment:Testing performed by : [address] [address] Glucose 161 70 - 199 mg/dL NEEL [...] was last revised 2022. Testing performed by: [address] [address] Calcium 9.0 8.5 - 10.3 mg/dL NEEL Comment:Testing performed by : [address] [address] Bilirubin, total 0.5 0.1 - 1.2 mg/dL NEEL Comment:Testing performed by : [address] [address] Protein, pl 7.1 6.5 - 8.5 g/dL NEEL Comment:Testing performed by : [address] [address] Albumin 4.3 3.5 - 5.0 g/dL NEEL Comment:Testing performed by : [address] [address] Alk phos 81 40 - 130 Units/L NEEL Comment:Testing performed by : [address] [address] ALT 20 7 - 55 Units/L NEEL Comment:Testing performed by : [address] [address] AST 26 10 - 50 Units/L NEEL Comment:Testing performed by : [address] [address] Blood 08/02/2024 8:43 AM CDT 08/02/2024 8:53 AM CDT us Freddy Yao DO LAB BLOOD ORDERABLES Final Result NEEL MH [address] [facility] Department [place] [address] from Last 3 Months Insurance [facility] Advance Directives For more information, please contact: [phone] * Full Code (Latest Code Status on [...] 8:00 AM 06/30/2022 5:06 PM Care Teams 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
--- OUTSIDE RECORDS SUMMARY | 2024-10-11 01:13 | XMS_ITS | Clinical Summary ---
Author Organization [facility] Address [address] [place] [address] Care Team Providers Care Leather Crafter Name Role Phone Alee Zhao MD Primary Care Provider [phone] Source Comments [facility],non-owned Affiliates and Associated Physician Practices is amultiple site organization consisting of ambulatory clinics and hospital sitesin [place], [place], [place] and [place]. This disclosure is being madepursuant to the Care Everywhere program and may not contain all information available regarding this patient. 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 Gender Identity Not on file Sexual Orientation Not on file Last Filed Vital Signs Vital Sign Reading Time Taken Comments Blood Pressure 120/71 03/17/2019 5:03 PM PROFESSIONAL VOLLEYBALL PLAYER Pulse 75 03/17/2019 5:03 PM PROFESSIONAL VOLLEYBALL PLAYER Temperature 36.9 C (98.4 F) 03/17/2019 2:00 PM PROFESSIONAL VOLLEYBALL PLAYER Respiratory Rate 17 03/17/2019 5:03 PM PROFESSIONAL VOLLEYBALL PLAYER Oxygen Saturation 99% 03/17/2019 5:03 PM PROFESSIONAL VOLLEYBALL PLAYER Inhaled Oxygen Concentration - - Weight 77.1 kg (170 lb) 03/17/2019 2:00 PM PROFESSIONAL VOLLEYBALL PLAYER Height 177.8 cm (5' 10) 03/17/2019 2:00 PM PROFESSIONAL VOLLEYBALL PLAYER Body Mass Index 24.39 03/17/2019 2:00 PM PROFESSIONAL VOLLEYBALL PLAYER Plan of Treatment Health Maintenance Due Date [...] RFLX NAAT QUANT STAT 03/27/2018 9:12 PM PROFESSIONAL VOLLEYBALL PLAYER HIV-1 HIV-2 ANTIGEN/ANTIBODY STAT 03/27/2018 9:12 PM PROFESSIONAL VOLLEYBALL PLAYER from Last 3 Months or Most Recently Relevant to Health Maintenance Results * HIV-1 HIV-2 ANTIGEN/ANTIBODY (03/27/2018 9:12 PM PROFESSIONAL VOLLEYBALL PLAYER) HIV Antigen/Antibod y 1 & 2 Non-reacti ve Non-react nemesio 03/27/2018 10:17 [address] PROFESSIONAL VOLLEYBALL PLAYER [facility] Comment: Neither HIV-1 p24 Antigen nor HIV-1/HIV-2 Antibodies are detected. Blood BLOOD SPECIMEN / Unknown Venipuncture / Unknown 03/27/2018 9:12 PM PROFESSIONAL VOLLEYBALL PLAYER 03/27/2018 9:21 PM PROFESSIONAL VOLLEYBALL PLAYER us Davi Patrick MD LAB - HEMATOLOGY ORDERABLES Fi nal Result Performing Organization Address [facility] Co de Phone Number [address] [phone] * HEPATITIS C AB SCREEN RFLX NAAT QUANT (03/27/2018 9:12 PM PROFESSIONAL VOLLEYBALL PLAYER) Hepatitis C Antibody Non-react nemesio Non-reac tive 03/27/2018 10:20 PM PROFESSIONAL VOLLEYBALL PLAYER [facility] Comment: Hepatitis C Antibody screen indicates no serologic evidence of past or current infection with Hepatitis C Virus. Patients with unexplained liver disease who are immunocompromised or suspected of having acute Hepatitis C infection may benefit from Nucleic Acid Test (RINKU) for Hepatitis C Viral RNA to confirm Hepatitis C status. Blood BLOOD SPECIMEN / Unknown Venipuncture / Unknown 03/27/2018 9:12 PM PROFESSIONAL VOLLEYBALL PLAYER 03/27/2018 9:21 PM PROFESSIONAL VOLLEYBALL PLAYER us Davi Patrick MD LAB - CHEMISTRY ORDERABLES Fin al Result Performing Organization Address [facility] Co de Phone Number [address] [phone] from Last 3 Months or Most Recently Relevant to Health Maintenance Insurance [facility] Care Teams Leather Crafter Relationship Specialty Start Date End Date Alee Zhao MD [address] [place] [phone] PCP - General Family Medicine 03/25/18
== END 2024-10-11 00:58 | disposition left against medical advice (07) ==
LOC: ANHED 10-11 01:10
PROVIDERS: Emergency Provider Student in an Organized Health Care Education/Training Program; PCP Family Medicine
DX: R10.12 Left upper quadrant pain (principal)
CPT/HCPCS: 36415; 80053; 83690; 85025; 99199

== ENCOUNTER 2024-10-15 11:06 | Emergency (ER) | payer SELFPAY ==
--- OUTSIDE RECORDS SUMMARY | 2024-10-15 11:09 | XMS_ITS | Patient Health Record ---
Author Organization [facility] Address [address] [facility] [address] [place] [address] Care Team Providers Care Dipper Fish Name Role Phone John TUCKER, Td Primary [...] W/U Status Risk Notes Problem Chronic pancreatitis (544098786) Other chronic pancreatitis (K86.1) Active confirmed Vital Signs Heart Rate 88 /min 10/23/2023 Blood pressure diastolic 81 mm Hg 10/23/2023 Height 70 in 10/23/2023 Blood pressure systolic 110 mm Hg 10/23/2023 Weight 159 lbs 10/23/2023 BMI 22.81 kg/m2 10/23/2023 Encounters Encounter Location Date Provider Diagnosis [facility] [address] [place] [address] 10/23/2023 NATALIYA FIGUEROA Other chronic pancreatitis K86.1 [...] Insured Coverage Start Date Coverage End Date [address] [id number] [phone] [id number] Donovan Bailey Self - patient is the insured Medical (General) History Medical History History ICD Code chronic pancreatitis cyclic vomiting hyperemesis cannabis Surgical History Surgery Date(Month/Year) cholecystectomy ERCP
--- OUTSIDE RECORDS SUMMARY | 2024-10-15 11:09 | XMS_ITS | Clinical Summary ---
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 Gender Identity Not on file Sexual Orientation Not on file Last Filed Vital Signs Vital Sign Reading Time Taken Comments Blood Pressure 119/84 07/11/2022 2:03 AM SUPPLY CHAIN CONSULTANT Pulse 80 07/11/2022 2:03 AM SUPPLY CHAIN CONSULTANT Temperature 36.3 C (97.4 F) 07/11/2022 2:03 AM SUPPLY CHAIN CONSULTANT Respiratory Rate 18 07/11/2022 2:03 AM SUPPLY CHAIN CONSULTANT Oxygen Saturation 97% 07/11/2022 2:03 AM SUPPLY CHAIN CONSULTANT Inhaled Oxygen Concentration - - Weight 79.4 kg (175 lb) 07/10/2022 8:06 PM SUPPLY CHAIN CONSULTANT Height 177.8 cm (5' 10) 07/10/2022 8:06 PM SUPPLY CHAIN CONSULTANT Body Mass Index 25.11 07/10/2022 8:06 PM SUPPLY CHAIN CONSULTANT Plan of Treatment Health Maintenance Due Date Last Done Comments HEPATITIS B VACCINES (1 of 3 - 19+ 3-dose series) 2000 INFLUENZA VACCINE (#1) 2023 , 02/29/2020, 02/09/2018 COVID-19 Vaccine ( season) 2024 10/29/2021, 11/02/2020, 10/05/2020 DTAP/TDAP/TD VACCINES (2 - Td or Tdap) 10/30/2031 10/29/2021 HPV VACCINES Aged Out No longer eligi ble based on patient's age to complete this topic Insurance [facility] MEDICAID [place]
--- OUTSIDE RECORDS SUMMARY | 2024-10-15 11:09 | XMS_ITS ---
Author Organization [facility] Address [address] [place] [address] Care Team Providers Care Children'S Nursery Assistant Name Role Phone John TUCKER, Td Primary Care Provider Tucker FIGUEROA NP, NATALIYA Porras [phone] REASON FOR VISIT FU ER Visit Encounters Encounter Location Date Provider Diagnosis [facility] [address] [place] [address] 02/29/2024 NATALIYA FIGUEROA Plan Of Treatment No Information Progress Notes * Donovan BROWN MDOB: 2 (44 yo M)Acc No.[id number]:02/29/2024 Progress Notes Patient: Donovan HASSAN Appointment Provider: Enrrique Figueroa CNP :1980 A ge:43 Y S ex:Male Date:02/29/2024 [facility] [facility] Pcp:Td Lopez MD Subjective: * Chief Complaints: * 1 . FU ER Visit. * Medical History: Objective: * Vitals: Assessment: Plan: * Treatment: * * Electronic signature of AMANDA FIGUEROA NP, MSN ATOMIC PHYSICS PROFESSOR-BC on 10/15/2024 at 12:09 PM EDT Sign off status: Pending * Appointment Provider: Enrrique Figueroa CNP Date: 1 Generated for Printing/Faxing/eTransmitting on: 0 10/15/2024 12:09 PM EDT
--- OUTSIDE RECORDS SUMMARY | 2024-10-15 11:09 | XMS_ITS | Encounter Summary ---
Author Organization [facility] Healthcare Address [address] [place] [address] Care Team Providers Care Quality Review Specialist Name Role Phone Td Lopez MD Primary Care Provider + Angie Woodard MD Unavailable [phone] Vimal Woodruff MD Unavailable [phone] PastorAlannah MA Unavailable [phone] PastorAlannah fair MA Unavailable [phone] PastorAlannah fair MA Unavailable [phone] Eun Arana RN Unavailable [phone] Lakshmi Garcia LPN Unavailable [phone] Encounter Details Date Type Department Care Team (Late st Contact Info) Description 12/30/2023 Orders Only [facility] Health Information Management [address] [place] [address] Scanning, Provider Social History Tobacco Use Types Packs/Day Years Used Date Smoking Tobacco: Every Day Cigarettes Smokeless Tobacco: Never Alcohol Use Standard Drinks/Week Comments Not Currently 0 (1 standard drink = 0.6 oz pur e alcohol) [facility] Utilities Answer Date Recorded In the [...] often do you attend chur ch or voodoo services? 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 Gender Identity Not on file Sexual Orientation [...] on filedocumented in this encounter Care Teams Quality Review Specialist Relationship Specialty Start Date End Date Td Lopez MD [address] [facility] [address] [place] [address] PCP - General Family Medicine 11/09/20 Angie Woodard MD [address] [place] [address] Consulting Physician Gastroenterology 07/17/21 Vimal Woodruff MD [address] [place] [address] Consulting Physician Gastroenterology 02/10/22 [address]annah [address]ASS [address] [place] [address] [address] [place] [address] ACO Care Distresser 12/31/23 01/05/24 Alannah Baumann MA [address] [facility] [address] [place] [address] ACO Care Distresser 06/29/24 06/30/24 Alannah Baumann MA [address] [facility] [address] [place] [address] ACO Care Distresser 08/03/24 08/03/24 Eun Arana RN [address] [place] [address] [address] [place] [address] Clinical Psychologist Private Practice 08/17/24 08/25/24 Lakshmi Garcia LPN [address] [place] [address] [address] [place] [address] Clinical Psychologist Private Practice 10/05/24 10/05/24 documented as of this encounter
--- OUTSIDE RECORDS SUMMARY | 2024-10-15 11:10 | XMS_ITS ---
Author Organization [facility] Address [address] [place] [address] Care Team Providers Care Sample Dye Mixer Name Role Phone John TUCKER, Td Primary Care Provider Unavaila jenny FIGUEROA SAND CUTTER, NATALIYA Unavailable IFRAH TUCKER, BRODERICK Unavailable [phone] REASON FOR VISIT ERCP stent pull INPT Encounters Encounter Location Date Provider Diagnosis [facility] - Op [address] [facility] [place], [place] [id number] 09/23/2023 BRODERICKNICKY RG Plan Of Treatment No Information Progress Notes * Donovan BROWN MDOB: 2 (44 yo M)Acc No.[id number]:09/23/2023 Patient: Donovan HASSAN Gaby Provider: William Rg MD, FASGE :1980 A ge:43 Y S ex:Male Date:09/23/2023 Address:[address] [facility] Pcp:Td Lopez MD * * Electronic signature of ROSETTE RG MD, MD on 10/15/2024 at 12:09 PM EDT Sign off status: Pending * Provider: William Rg MD, FASGE Date: 0 09/23/2023 Generated for Printi ng/Faxing/eTransmitting on: 0 10/15/2024 12:09 PM EDT
--- OUTSIDE RECORDS SUMMARY | 2024-10-15 11:10 | XMS_ITS | Encounter Summary ---
Author Organization [facility] Healthcare Address [address] [place] [address] Care Team Providers Care Sandblast Carver Name Role Phone Td Lopez MD Primary Care Provider + Angie Woodard MD Unavailable [phone] Vimal Woodruff MD Unavailable [phone] PastorAlannah MA Unavailable [phone] PastorAlannah fair MA Unavailable [phone] PastorAlannah MA Unavailable [phone] Eun Arana RN Unavailable [phone] Lakshmi Garcia LPN Unavailable [phone] Encounter Details Date Type Department Care Team (Late st Contact Info) Description 12/21/2017 Documentation [id number] [place] [id number] Shannan Farfan, JOHN Social History Tobacco Use Types Packs/Day Years Used Date Smoking Tobacco: Every Day Sex and Gender Information Value Date Recorded Sex Assigned at Not on file 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 07/08/2021 07/14/2021 11/05/2021 3:05 AM C DT COVID: Suspected 05/20/2022 05/20/2022 05/20/2022 2:32 AM HOSPITALIST PHYSICIAN COVID: Suspected 09/20/2023 09/20/2023 09/20/2023 9:26 PM CDT COVID: Suspected 10/04/2023 10/04/2023 10/04/2023 3:55 PM CDT documented as of this encounter Care Teams Sandblast Carver Relationship Specialty Start Date End Date Td Lopez MD [address] [facility] [address] [place] [address] PCP - General Family Medicine 11/09/20 Angie Woodard MD [address] [facility] [address] [place] [address] Consulting Physician Gastroenterology 07/17/21 Vimal Woodruff MD [address] [facility] [address] [place] [address] Consulting Physician Gastroenterology 02/10/22 Alannah Buamann MA [address] [facility] [address] [place] [address] ACO Care Manager Meat 12/31/23 01/05/24 Alannah Baumann MA [address] [facility] [address] [place] [address] ACO Care Manager Meat 06/29/24 06/30/24 Alannah Baumann MA [address] [place] [address] [address] [place] [address] ACO Care Manager Meat 08/03/24 08/03/24 Eun Arana RN [address] [place] [address] [address] [place] [address] Gluing Machine Offbearer 08/17/24 08/25/24 Lakshmi Garcia LPN [address] [place] [address] [address] [place] [address] Gluing Machine Offbearer 10/05/24 10/05/24 documented as of this encounter
--- OUTSIDE RECORDS SUMMARY | 2024-10-15 11:10 | XMS_ITS | Encounter Summary ---
Author Organization [facility] Healthcare Address [address] [place] [address] Care Team Providers Care Trawl Net Maker Name Role Phone Td Lopez MD Primary Care Provider + Angie Woodard MD Unavailable Vimal Woodruff MD Unavailable [phone] Reason for Visit * Reason Comments Abdominal Pain Nausea/vomiting Encounter Details Date Type Department Care Team (Late st Contact Info) Description 10/14/2024 12:14 AM CDT - 10/14/2024 2:13 AM CDT Emergency [facility] Emergency Department [address] [place] [address] Enteritis (Primary Dx) Discharge Disposition: Discharge to home or self care Social History Tobacco Use Types Packs/Day Years Used Date Smoking Tobacco: Every Day Cigarettes Smokeless Tobacco: Never Alcohol Use Standard Drinks/Week Comments Not Currently 0 (1 standard drink = 0.6 oz pur e alcohol) [facility] Utilities Answer Date Recorded In the past 12 months has [employer] electric, gas, oil, or water company threatened [...] week 08/11/2024 How often do you attend [facility] or anabaptist services? Never 08/11/2024 Do you belong to any clubs o r organizations such as denominational groups, unions, fraternal or athletic groups, or [...] any time in the past 12 m [facility], were you homeless or living in a senior care (including now)? No 08/11/2024 Personal Safety Answer Date Recorded Have you ever been in or are you currently in a harmful physical or emotional relationship or is someone making you feel afraid or unsafe? 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 Gender Identity Not on file Sexual Orientation Not on file documented as of this encounter Last Filed Vital Signs Vital Sign Reading Time Taken Comments Blood Pressure 137/97 10/14/2024 2:05 AM CDT Pulse 79 10/14/2024 2:05 AM CDT Temperature 37 C (98.6 F) 10/14/2024 2:05 AM CDT Respiratory Rate 18 10/14/2024 2:05 AM CDT Oxygen Saturation 95% 10/14/2024 2:05 AM CDT Inhaled Oxygen Concentration - - Weight 74.8 kg (165 lb) 10/13/2024 9:44 PM CDT Height 177.8 cm (5' 10) 10/13/2024 9:44 PM CDT Body Mass Index 23.68 10/13/2024 9:44 PM CDT documented in this encounter Discharge Instructions * Discharge Instructions* Anny Heart NP - 10/14/2024 2:04 AM CDT Your workup has been completed with labs and imaging. What has shown is enteritis. This is inflammation in the GI system. You are being prescribed medication for spasming, inflammation and nausea. Please take them as ordered and eat a bland diet that is not hot, spicy or fried and avoid carbonated b everages. Follow up with the primary care provider. * Attachments The following attachments cannot be sent through Care Everywhere. * Gastroenteritis, Noninfectious ([place]) documented in this encounter Medications at Time of Discharge chlorhexidine (PERIDEX) 0.12 % oral rinse Swish and spit 15 mL 2 (two) times a day 118 mL 10/03/2024 dicyclomine (BENTYL) 20 mg tabletIndications: Enterocolitis Take 1 tablet (20 mg total) by mouth 2 (two) times a day as needed (Abdominal cramping) 30 tablet 10/14/2024 famotidine (PEPCID) 40 mg tabletIndications: Gastroesophageal reflux disease without esophagitis Take 1 tablet (40 mg total) by mouth daily 90 tablet 1 10/06/2024 10/06/2025 HYDROcodone-acetam inophen (NORCO) 5-325 mg per tabletIndications: Pain Take 1 tablet by mouth every 8 (eight) hours as needed for pain 12 tablet 10/06/2024 hyoscyamine (OSCIMIN) 0.125 mg Take 1 tablet (0.125 mg total) by mouth every 8 (eight) hours as needed 01/25/2024 ibuprofen (ADVIL,MOTRIN) 400 mg tablet Take 1 tablet (400 mg total) by mouth every 8 (eight) hours as needed for pain 20 tablet 10/03/2024 ketorolac (TORADOL) 10 mg tablet Take 1 tablet (10 mg total) by mouth every 6 (six) hours as needed for pain 20 tablet 10/14/2024 lidocaine viscous (XYLOCAINE) 2 % solutionIndication s:Mouth Irritation Apply 10 mL to the mouth or throat every 3 (three) hours 200 mL 10/03/2024 ondansetron (ZOFRAN) 4 mg tablet Take 1 tablet (4 mg total) by mouth every 6 (six) hours 12 tablet 10/14/[address] (PROTONIX) 40 mg EC tabletIndications: Treatment of Non-Bleeding Gastric Disorder Take 1 tablet (40 mg total) by mouth daily 90 tablet 1 10/06/2024 documented as of this encounter Ordered Prescriptions Prescription Sig Dispense Quantity Refills Last Filled Start Date End Date ondansetron (ZOFRAN) 4 mg tablet Take 1 tablet (4 mg total) by mouth every 6 (six) hours 12 tablet 10/14/2024 ketorolac (TORADOL) 10 mg tablet Take 1 tablet (10 mg total) by mouth every 6 (six) hours as needed for pain 20 tablet 10/14/2024 dicyclomine (BENTYL) 20 mg tabletIndications:E nterocolitis Take 1 tablet (20 mg total) by mouth 2 (two) times a day as needed (Abdominal cramping) 30 tablet 10/14/2024 documented in this encounter Discharge Disposition Disposition Code Departure Means Destination Comment s Discharge to home or self care documented in this encounter ED Notes * Anny Heart, YESSICA - 10/14/2024 1:38 AM CDT HPI Chief Complaint Patient presents with Abdominal Pain Nausea/vomiting This 44-year-old male patient with a history of anxiety, depression, cannabis abuse with cyclic vomiting syndrome, drug-seeking behavior, manipulative behavior, GERD, pancreatitis comes to the emergency room with complaints of having mid abdominal pain. Patient was seen at another emergency room yesterday with the same symptoms, was told that he likely has pancreatitis, no CT scan was performed and he was discharged. Patient states his symptoms have persisted with some nausea and vomiting. He denies any fevers. Nothing makes symptoms better or worse. He has seen Dr. Woodruff here for GI. History provided by: Patient rackman used: No Patient History: Past Medical History: Diagnosis Date Anxiety and depression Cannabis abuse with cannabis-induced disorder Cyclic vomiting syndrome Drug-seeking behavior GERD (gastroesophageal reflux disease) Manipulative behavior Pancreatic insufficiency Pancreatitis Sphincter of Oddi dysfunction Review of Systems Review of Systems Constitutional: See HPI All other systems reviewed and are negative. Physical Exam ED Triage Vitals [10/13/242143] Temp Pulse Resp BP SpO2 36.9 ??C (98.4 ??F) 84 18 (!) 181/111 100 % Temp src Heart Rate Source Patient Position BP Location FiO2 (%) Oral -- -- -- -- Height Height Method Weight Weight Method 1.778 m (5' 10) Stated 74.8 kg (165 lb) Stated Physical Exam Vitals and nursing note reviewed. Constitutional: General: He is in acute distress. Appearance: He is normal weight. He is ill-appearing. Comments: Patient appears to have acute pain distress HENT: Head: Normocephalic and atraumatic. Cardiovascular: Rate and Rhythm: Normal rate and regular rhythm. Heart sounds: Normal heart sounds. Pulmonary: Effort: Pulmonary effort is normal. Breath sounds: Normal breath sounds. Abdominal: General: Abdomen is flat. Bowel sounds are normal. Palpations: Abdomen is soft. Tenderness: There is abdominal tenderness in the epigastric area and left upper quadrant. Hernia: No hernia is present. Skin: General: Skin is warm and dry. Capillary Refill: Capillary refill takes less than 2 seconds. Neurological: General: No focal deficit present. Mental Status: He is alert and oriented to person, place, and time. Psychiatric: Mood and Affect: Mood normal. MDM Medical Decision Making Differential diagnosis includes but not limited to: Acute on chronic pancreatitis, cholecystitis, choledocholithiasis, acute abdomen, enteritis Vital signs reviewed and stable Workup initiated with labs and imaging. Patient medicated for pain and nausea. Lipase is marginallyelevated at 119. Patient does have leukocytosis with WBCs of 14.0 that is left-shifted. Patient hashad multiple CT scans, however given the fact that he has a leukocytosis with a left shift CT scan is ordered. CT scan does not show any pancreatitis. What it does show is enteritis. Patient advised of the findings and advised that we will treat with Bentyl and Toradol. Patient becomes angry wanting to know why he can not have more narcotics. I explained to patient that enteritis as a form of inflammation and it is best treated with anti-inflammatories and antispasmodics, and reminded him that he already did have a dose of narcotics. He is reassured that there are no other acute abnormalitiesidentified on CT scan. Discussed bland diet and with the provide prescription for Bentyl and Zofranfor home. Patient discharged at this time in stable condition. Patient required multiple times of redirection as to why I would not provide him with more narcotics raising a red flag. Problems Addressed: Enteritis: acute illness or injury Amount and/or Complexity of Data Reviewed Labs: ordered. Decision-making details documented in ED Course. Radiology: ordered and independent interpretation performed. Decision-making details documented in ED Course. Risk Prescription drug management. ED Course as of 10/14/24203 Time: 10/14 0154 Value: CT Abdomen Pelvis W Contrast Comment: IMPRESSION: Enterocolitis. Mild pneumobilia, new since the previous exam, possibly related to interval papillotomy. By: Anny Heart NP Final diagnoses: Enteritis Anny Heart NP 10/14/24203 * Calvin Fisher RN - 10/13/2024 9:42 PM CDT Pt states upper middle abdominal pain with nausea, vomiting, and diarrhea x 24 hours. Hx of pancreatitis. A&Ox4 and ambulatory. documented in this encounter Plan of Treatment Pending Results Name Type Priority Associated Diagnoses Date /Time Lipase Lab STAT 10/13/2024 10: 06 PM CDT Scheduled Orders Name Type Priority Associated Diagnoses Orde r Schedule Lipase Lab STAT Once for 1 Occ urrences starting 10/13/2024 until 10/13/2024 documented as of this encounter Procedures Procedure Name Priority Date/Time Associated Diagnosis Comments ADD ON LAB TEST Add-On 10/14/2024 4:[address] ABDOMEN PELVIS W CONTRAST ED 10/14/2024 1:38 AM CDT URINALYSIS AND REFLEX TO MICROSCOPIC AND CULTURE STAT 10/13/2024 10:10 PM CDT EGFR STAT 10/13/2024 10:06 PM CDT DIFFERENTIAL AUTO STAT 10/13/2024 10: 06 PM CDT CBC WITH AUTO DIFFERENTIAL STAT 10/13/2024 10:06 PM CDT LIPASE STAT 10/13/2024 10:06 PM CDT COMPREHENSIVE METABOLIC PANEL STAT 10/13/2024 10:06 PM CDT ECG 12-LEAD STAT 10/13/2024 9:51 PM CDT documented in this encounter Results * Lipase - Add on lab test (10/14/2024 4:29 AM CDT) Acceptable Yes Blood 10/14/2024 4:29 AM CDT 10/14/2024 4:29 AM CDT [facility]ative [facility] - 10/14/2024 4:30 AM CDT Name of Test->Lipase us Yusef Bear MD LAB BLOOD ORDERABLES Final Result [facility] [address] Department [place] [address] * CT Abdomen Pelvis W Contrast (10/14/2024 1:38 AM CDT) Anatomical Region Laterality Modality Body N/A Computed Tomogra phy 10/14/2024 1:29 AM CDT Impressions 10/14/2024 9:11 AM CDT No acute abnormality in the abdomen or pelvis. No pancreatitis. For the purposes of quality improvement manager, this study was initially interpreted by teleradiology. There is no significant discrepancy. Dictated by: López Wynn MD The radiology attending physician has personally reviewed this study, and had reviewed and/or edited this written report and agrees with it. Electronically signed by: Freddy Moreno M.D., MPH Narrative 10/14/2024 9:11 AM CDT EXAMINATION: CT ABDOMEN PELVIS W CONTRAST HISTORY:44 years-old Male with mid abdominal pain, history of pancreatitis and history of sphincterotomy. TECHNIQUE: Transaxial computed tomographic images of the abdomen and pelvis were obtained after the uneventful administration of 75 mL of Optiray 350 intravenous contrast according to standard protocol. COMPARISON: 10/07/2024. FINDINGS: The lung bases are clear. No pleural or pericardial effusion. The hepatic parenchyma is normal without focal lesion. The portal and hepatic veins are patent. Mild central pneumobilia likely secondary to sphincterotomy.. The gallbladder is absent. The spleen, pancreas, and adrenal glands are normal. The kidneys enhance symmetrically without hydronephrosis. The ureters and bladder are normal. No renal or ureteral stones. Prostate shows some dystrophic calcifications. Stomach contains ingested material. Duodenal sweep is normal. No bowel wall thickening or obstruction. The appendix is visualized in its entirety and is normal. There is no ascites or pneumoperitoneum. Small fat-containing right inguinal hernia. No abdominal or pelvic lymphadenopathy. There are no vascular abnormalities. No acute fracture or aggressive osseous lesion. Procedure Note Freddy Moreno MD - 10/14/2024 EXAMINATION: CT ABDOMEN PELVIS W CONTRAST HISTORY:44 years-old Male with mid abdominal pain, history of pancreatitis and history of sphincterotomy. TECHNIQUE: Transaxial computed tomographic images of the abdomen and pelvis were obtained after the uneventful administration of 75 mL of Optiray 350 intravenous contrast according to standard protocol. COMPARISON: 10/07/2024. FINDINGS: The lung bases are clear. No pleural or pericardial effusion. The hepatic parenchyma is normal without focal lesion. The portal and hepatic veins are patent. Mild central pneumobilia likely secondary to sphincterotomy.. The gallbladder is absent. The spleen, pancreas, and adrenal glands are normal. The kidneys enhance symmetrically without hydronephrosis. The ureters and bladder are normal. No renal or ureteral stones. Prostate shows some dystrophic calcifications. Stomach contains ingested material. Duodenal sweep is normal. No bowel wall thickening or obstruction. The appendix is visualized in its entirety and is normal. There is no ascites or pneumoperitoneum. Small fat-containing right inguinal hernia. No abdominal or pelvic lymphadenopathy. There are no vascular abnormalities. No acute fracture or aggressive osseous lesion. IMPRESSION: No acute abnormality in the abdomen or pelvis. No pancreatitis. For the purposes of quality improvement manager, this study was initially interpreted by teleradiology. There is no significant discrepancy. Dictated by: López Wynn MD The radiology attending physician has personally reviewed this study, and had reviewed and/or edited this written report and agrees with it. Electronically signed by: Freddy Moreno M.D., MPH us Nasir Reyez DO IMG CT PROCEDURES Final Res ult * (ABNORMAL) Urinalysis reflex to microscopic and culture Urine (10/13/2024 10:10 PM CDT) Color, ur Yellow Yellow Clarity, ur Clear Clear [facility] Specific gravity, ur 1.010 1.003 - 1.030 [facility] pH, urine 6.5 [facility] Comment: Interpretive Data U rine pH is affected by diet, medications, systemic acid-base disturbances, and renal tubular function. pH may affect urinary stone formation. For example, urine pH below 6.0 may help reduce the tendency for calcium phosphate stones and pH greater than 6.0 may reduce the tendency for uric acid stone formation. Source: [facility] [employer] Current Interpretive Data was last revised on 2017 Protein, ur ql Negative Negative [facility] Glucose, ur ql Negative Negative [facility] Ketones, ur 1+(A) Negative [facility] Bilirubin, ur Negative Negative [facility] Blood, ur Negative Negative [facility] Urobilinogen, ur <2.0 <2.0 mg/dL [facility] Nitrite, ur Negative Negative [facility] Leukocyte esterase, ur Negative Negative [facility] UA reflex comment Reflex conditions for microscopic UA and culture not met. [facility] Urine 10/13/2024 10:1 0 PM CDT 10/13/2024 10:11 PM CDT us Abdiel Donaldson MD LAB MICROBIOLOGY - GENERAL O RDERABLES Final Result [facility] [address] Department [place] [address] * (ABNORMAL) Lipase (10/13/2024 10:06 PM CDT) Lipase 119(H) 10 - 99 Units/L Blood 10/13/2024 10:0 6 PM CDT 10/13/2024 10:43 PM CDT Abdiel Donaldson MD LAB BLOOD ORDERABLES Final R esult Performing Organization Address City/[facility]/ZIP Co de Phone Number [facility] [address] Department of [employer] [place], [place] [id number] * eGFR (10/13/2024 10:06 PM CDT) [facility] eGFR >90 >=60 mL/min/1. 73 m2 Comment: [...] interpretive data was last reviewed 2021. Blood 10/13/2024 10:0 6 PM CDT 10/13/2024 10:43 PM CDT Abdiel Donaldson MD LAB BLOOD ORDERABLES Final R esult Performing Organization Address City/[facility]/ZIP Co de Phone Number [facility] [address] Department of [employer] [place], [place] [id number] * (ABNORMAL) Differential, auto (10/13/2024 10:06 PM CDT) [facility] Neutrophil abs 11.31(H) 1.50 - 6.50 K/cumm Imm gran abs 0.06 0.00 - 0.10 K/cumm [facility] Lymphocyte abs 1.47 0.80 - 3.30 K/cumm [facility] Monocyte abs 1.09(H) 0.20 - 0.80 K/cumm [facility] Eosinophil abs 0.07 0.00 - 0.50 K/cumm [facility] Basophil abs 0.04 0.00 - 0.10 K/cumm [facility] Neutrophil pct 80.5 % [facility] Comment: Interpretive Data Percent cell count reference ranges are not reported, since discordance with absolute values may lead to misinterpretation of CBC data. Current Interpretive Data was last revised on 2017. Imm gran pct 0.4 % [facility] Comment: Interpretive Data Percent cell count reference ranges are not reported, since discordance with absolute values may lead to misinterpretation of CBC data. Current Interpretive Data was last revised on 2017. Lymphocyte pct 10.5 % [facility] Comment: Interpretive Data Percent cell count reference ranges are not reported, since discordance with absolute values may lead to misinterpretation of CBC data. Current Interpretive Data was last revised on 2017. Monocyte pct 7.8 % [facility] Comment: Interpretive Data Percent cell count reference ranges are not reported, since discordance with absolute values may lead to misinterpretation of CBC data. Current Interpretive Data was last revised on 2017. Eosinophil pct 0.5 % [facility] Comment: Interpretive Data Percent cell count reference ranges are not reported, since discordance with absolute values may lead to misinterpretation of CBC data. Current Interpretive Data was last revised on 2017. Basophil pct 0.3 % [facility] Comment: Interpretive Data Percent cell count reference ranges are not reported, since discordance with absolute values may lead to misinterpretation of CBC data. Current Interpretive Data was last revised on 2017. Blood 10/13/2024 10:0 6 PM CDT 10/13/2024 10:43 PM CDT us Abdiel Donaldson MD LAB BLOOD ORDERABLES Final R esult Performing Organization Address [facility] Co de Phone Number [facility] [address] Department [place] [address] * (ABNORMAL) Comprehensive metabolic panel (10/13/2024 10:06 PM CDT) Sodium 144 135 - 145 mmol/L Potassium, pl 3.7 3.3 - 4.9 mmol/L [facility] Chloride 104 97 - 110 mmol/L [facility] CO2 22 22 - 32 mmol/L [facility] Anion gap 18(H) 2 - 15 mmol/L [facility] BUN 7 6 - 25 mg/dL [facility] Creatinine 0.91 0.80 - 1.30 mg/dL [facility] Glucose 95 70 - 199 mg/dL [facility] Comment: Interpretive Data Fasting glucose >/= [...] 2022. Calcium 9.3 8.5 - 10.3 mg/dL [facility] Bilirubin, total 0.4 0.1 - 1.2 mg/dL [facility] Protein, pl 7.0 6.5 - 8.5 g/dL [facility] Albumin 4.5 3.5 - 5.0 g/dL [facility] Alk phos 82 40 - 130 Units/L [facility] ALT 16 7 - 55 Units/L [facility] AST 19 10 - 50 Units/L [facility] Blood Venous blood specimen / Unknown 10/13/2024 10:06 PM CDT 10/13/2024 10:43 PM CDT Abdiel Donaldson MD LAB BLOOD ORDERABLES Final R esult Performing Organization Address [facility] de Phone Number [facility] [address] Department of Laboratories [place], [place] [id number] * (ABNORMAL) CBC with auto differential (10/13/2024 10:06 PM CDT) WBC 14.04(H) 3.80 - 9.90 K/cumm Hgb 14.1 13.0 - 17.5 g/dL [facility] Hct 43.6 38.9 - 50.3 % [facility] Plt 312 150 - 400 K/cumm [facility] MPV 10.3 9.1 - 12.3 fL [facility] RBC 5.01 4.30 - 5.80 M/cumm [facility] MCV 87.0 81.3 - 96.4 fL [facility] MCH 28.1 27.1 - 33.3 pg [facility] MCHC 32.3 32.3 - 35.7 g/dL [facility] RDW CV 15.6(H) 11.1 - 14.9 % [facility] RDW SD 49.1(H) 35.7 - 48.1 fL [facility] NRBC abs 0.00 0.00 - 0.01 K/cumm [facility] Blood Venous blood specimen / Unknown 10/13/2024 10:06 PM CDT 10/13/2024 10:43 PM CDT us Abdiel Donaldson MD LAB BLOOD ORDERABLES Final R esult Performing Organization Address City/[facility] Co de Phone Number [facility] [address] [place] [address] * ECG 12 lead (10/13/2024 9:51 PM CDT) 10/13/2024 9:51 PM CDT Narrative [facility] - 10/14/2024 9:31 AM CDT Vent Rate: 68 bpm RR Interval: 880 msec NE Interval: 129 msec QRS Duration: 113 msec QT Interval: 357 msec QTC Interval: 374 msec P-R-T Wren: 26 - 53 - 61 degrees IMPRESSION: SINUS RHYTHM WITH A BORDERLINE SHORT NE INTERVAL WITH MARKED SINUS ARRHYTHMIA INCOMPLETE RIGHT BUNDLE-BRANCH BLOCK BORDERLINE ECG Electronically Signed By: Calvin Sanabria MD mobap us Jose Francisco Jessica MD ECG ORDERABLES Final Resu lt [facility] documented in this encounter Visit Diagnoses Diagnosis Enteritis- Primary Other and unspecified noninfectious gastroenteritis and colitis Enteritis Other and unspecified noninfectious gastroenteritis and colitis documented in this encounter Administered Medications Inactive Administered Medications - up to 3 most recent administrations Medication Order MAR Action Action Date Dose Rate Site dicyclomine (BENTYL) capsule 20 mg 20 mg, oral, Once, On Thu10/14/24 at 0201, For 1 dose Given 10/14/2024 2:04 AM CDT 20 mg famotidine (PEPCID) injection 20 mg 20 mg, intravenous, Administer over 2 Minutes, Once, On Thu10/14/24 at 0057, For 1 dose Given 10/14/2024 1:13 AM CDT 20 mg ioversoL (OPTIRAY 350) syringe 75 mL 75 mL, intravenous, Once in imaging, contrast, Starting on Thu10/14/24 at 0109, For 1 dose Contrast Given 10/14/2024 1:28 AM CDT 75 mL ketorolac (TORADOL) 30 mg/mL injection 30 mg 30 mg, intravenous, Once, On Thu10/14/24 at 0201, For 1 dose, For Adult IV push, administer over 15 seconds Given 10/14/2024 2:04 AM CDT 30 mg morphine injection 4 mg 4 mg, intravenous, Administer over 4 Minutes, Once, On Thu10/14/24 at 0057, For 1 dose Given 10/14/2024 1:12 AM CDT 4 mg ondansetron (ZOFRAN) injection 4 mg 4 mg, intravenous, Administer over 2 Minutes, Once as needed, nausea, vomiting, If patient unable to tolerate PO, Starting on Ginny 10/13/24 at 2153, For 1 dose, Do not administer if patient had 8mg administered within 6 hours of patient presenting to ED Do not administer if patient was formally diagnosed with prolonged QT syndrome Given 10/13/2024 10:06 PM CDT 4 mg ondansetron (ZOFRAN) injection 4 mg 4 mg, intravenous, Administer over 2 Minutes, Once, On Thu10/14/24 at 0057, For 1 dose Given 10/14/2024 1:13 AM CDT 4 mg ondansetron ODT (ZOFRAN-ODT) disintegrating tablet 4 mg 4 mg, oral, Once as needed, nausea, vomiting, If able to tolerate PO, Starting on Ginny 10/13/24 at 2153, For 1 dose, Do not administer if patient had 8mg administered within 6 hours of patient presenting to ED Do not administer if patient was formally diagnosed with prolonged QT syndrome If administering by mouth, place tablet on tongue and allow to dissolve. sodium chloride 0.9% bolus 1,000 mL 1,000 mL, intravenous, at 999 mL/hr, Administer over 1 Hours, Once, On Thu10/14/24 at 0057, For 1 dose New Bag 10/14/2024 1:12 AM CDT 1,000 mL 999 mL/hr documented in this encounter Discontinued Medications Medication Sig Discontinue Reason Start Date End Da te ondansetron ODT (ZOFRAN-ODT) 4 mg disintegrating tablet Take 1 tablet (4 mg total) by mouth every 8 (eight) hours as needed for nausea or vomiting Duplicate order 08/13/2024 10/14/2024 documented as of this encounter Active and Recently Administered Medications Times are shown in CDT. Scheduled Medication Order 10/12/2024 10/13/2024 10/14/2024 dicyclomine (BENTYL) capsule 20 mg (COMPLETED) 20 mg, oral, Once, On Thu10/14/24 at 0201, For 1 dose 0204 (Given - Provid er: Sherry Yang RN) famotidine (PEPCID) injection 20 mg (COMPLETED) 20 mg, intravenous, Administer over 2 Minutes, Once, On Thu10/14/24 at 0057, For 1 dose 0113 (Given - Provid er: Shelly Coronado RN) ketorolac (TORADOL) 30 mg/mL injection 30 mg (COMPLETED) 30 mg, intravenous, Once, On Thu10/14/24 at 0201, For 1 dose, For Adult IV push, administer over 15 seconds 0204 (Given - Provid er: Sherry Yang RN) morphine injection 4 mg (COMPLETED) 4 mg, intravenous, Administer over 4 Minutes, Once, On Thu10/14/24 at 0057, For 1 dose 0112 (Given - Provid er: Shelly Coronado RN) ondansetron (ZOFRAN) injection 4 mg (COMPLETED) 4 mg, intravenous, Administer over 2 Minutes, Once, On Thu10/14/24 at 0057, For 1 dose 0113 (Given - Provid er: Shelly Coronado RN) sodium chloride 0.9% bolus 1,000 mL (COMPLETED) 1,000 mL, intravenous, at 999 mL/hr, Administer over 1 Hours, Once, On Thu10/14/24 at 0057, For 1 dose 0112 (New Bag - Prov ider: Shelly Coronado RN)[id number] (Stopped - Provider: Sherry Yang RN) PRN Medication Order 10/12/2024 10/13/2024 10/14/2024 ioversoL (OPTIRAY 350) syringe 75 mL (COMPLETED) 75 mL, intravenous, Once in imaging, contrast, Starting on Thu10/14/24 at 0109, For 1 dose 0128 (Contrast Given - Provider: Ebony Hernandez, RT) ondansetron (ZOFRAN) injection 4 mg (COMPLETED) 4 mg, intravenous, Administer over 2 Minutes, Once as needed, nausea, vomiting, If patient unable to tolerate PO, Starting on Ginny 10/13/24 at 2153, For 1 dose, Do not administer if patient had 8mg administered within 6 hours of patient presenting to ED Do not administer if patient was formally diagnosed with prolonged QT syndrome 2205 (Given - Provider: Chantell Sue RN) ondansetron ODT (ZOFRAN-ODT) disintegrating tablet 4 mg 4 mg, oral, Once as needed, nausea, vomiting, If able to tolerate PO, Starting on Ginny 10/13/24 at 2153, For 1 dose, Do not administer if patient had 8mg administered within 6 hours of patient presenting to ED Do not administer if patient was formally diagnosed with prolonged QT syndrome If administering by mouth, place tablet on tongue and allow to dissolve. 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
--- OUTSIDE RECORDS SUMMARY | 2024-10-15 11:10 | XMS_ITS | Referral Summary ---
Author Organization [facility] Address [address] [place] [address] Care Team Providers Care Copy Director Name Role Phone Td Lopez MD Primary Care Provider + Angie Woodard MD Unavailable [phone] Vimal Woodruff MD Unavailable [phone] Encounters Date Type Department Care Team Description 10/14/2024 12:14 AM CDT - 10/14/2024 2:13 AM [facility] Emergency [facility] Emergency Department [address] [place] [address] Enteritis (Primary Dx) Discharge Disposition: Discharge to home or self care 10/13/2024 4:36 AM CDT - 10/13/2024 10:20 AM T Emergency [address] [address] Rodney Mejia MD Journagan, Kevin, MD Abdominal pain (Primary Dx); History of pancreatitis; Chronic abdominal pain; Nausea and vomiting, unspecified vomiting type Discharge Disposition: Discharge to home or self care 10/08/2024 7:54 PM CDT - 10/08/2024 8:06 PM T Emergency [facility] Emergency Department [address] [place] [id number] Chronic abdominal pain (Primary Dx) Discharge Disposition: Discharge to home or self care 10/07/2024 5:29 AM CDT - 10/07/2024 8:34 AM CDT Emergency [address] [address] Jose Francisco Harper DO Prograis, Shannon Smith, MD Abdominal pain (Primary Dx); Chronic pancreatitis, unspecified pancreatitis type (HCC) Discharge Disposition: Discharge to home or self care 10/06/2024 11:00 AM CDT Office Visit [facility] Care [address] [place] [phone] Td Lopez MD Abdominal pain (Primary Dx); Other chronic pancreatitis (HCC); Gastroesophageal reflux disease without esophagitis; Irritable bowel syndrome with both constipation and diarrhea 10/05/2024 [facility] IP Outreach [address] [address] Lakshmi Garcia LPN 10/04/[address] [phone] Td Lopez MD schedule [facility] appt 10/02/2024 9:53 PM CDT - 10/03/2024 11:39 AM CDT Hospital Encounter [address] [address] María Elena Calvo MD Medavaram, Atul, MD Sada, Kahmalia-Kalee Conceptia, MD Chowdhury, Farhanaz, MD Abdominal pain (Primary Dx); Acute pancreatitis, unspecified complication status, unspecified pancreatitis type; Pain, dental Discharge Disposition: Discharge to home or self care 09/30/2024 5:44 PM CDT - 09/30/2024 8:58 PM CDT Emergency [facility] Emergency Department [address] [place] [address] Radha Casas DO Abdominal pain (Primary Dx); Urinary tract infection with hematuria, site unspecified Discharge Disposition: Discharge to home or self care 08/23/2024 11:00 AM CDT Office Visit [address] [phone] Td Lopez MD Pain, dental (Primary Dx); Abdominal pain, epigastric 08/16/2024 3:42 AM CDT - 08/16/2024 6:26 AM CDT Emergency [facility] Emergency Department [address] [place] [address] Ashlie Burgess MD Abdominal pain, epigastric (Primary Dx) Discharge Disposition: Discharge to home or self care 08/15/2024 DIPTI IP Outreach [facility] Care Organization [address] [place] [phone] Lakshmi Garcia LPN 08/13/2024 4:07 PM CDT - 08/13/2024 8:39 PM CDT Emergency [facility] Emergency Department [address] [place] [phone] Crista Bower MD Abdominal pain, generalized (Primary Dx) Discharge Disposition: Discharge to home or self care 08/10/2024 2:56 AM CDT - 08/12/2024 12:59 PM CDT Hospital Encounter [address] [phone] Domenic Arias MD Shimotani, Dorian Genki, DO Willis, Reinaldo Martel MD Acute pancreatitis, unspecified complication status, unspecified pancreatitis type (Primary Dx); Abdominal pain, generalized Discharge Disposition: Discharge to home or self care 08/11/2024 3:31 PM CDT Anesthesia Event [facility] [address] [place] [phone] Juan Daniel Freed MD 08/11/2024 3:15 PM CDT - 08/11/2024 3:45 PM CDT Surgery [facility] [address] [place] [phone] Georges Luna MD EGD 08/07/2024 2:23 AM CDT - 08/07/2024 5:31 AM T Emergency [facility] Emergency Department [address] [place] [address] Justice Patel MD Abdominal pain, generalized (Primary Dx) Discharge Disposition: Discharge to home or self care 08/05/2024 Orders Only [facility] Health Information Management [address] [place] [address] Scanning, Provider 08/04/2024 [facility] ED Outreach [facility] Accountable Care Organization [address] [place] [address] Alannah Baumann MA 08/03/2024 [facility] ED Outreach [address] [address] Alannah Baumann MA 08/03/2024 2:13 PM CDT - 08/03/2024 3:27 PM CDT Emergency [facility] Emergency Department [address] [place] [address] Freddy Yao DO Chronic abdominal pain (Primary Dx); Drug-seeking behavior Discharge Disposition: Discharge to home or self care 08/02/2024 8:48 AM CDT - 08/02/2024 10:46 AM T Emergency [facility] Emergency Department [address] [place] [address] Chronic abdominal pain (Primary Dx) Discharge Disposition: Discharge to home or self care from Last 3 Months Allergies Active Allergy Reactions Criticality Noted Date Comments Capsaicin Other (See comments) Low 05/20/2019 Pt states it gets into his scars and causes a lot of pain Prochlorperazine Mental status changes Low 10/13/2024 Doxycycline Stomach upset Low Haloperidol Other (See comments),Muscle pain Medium 01/29/2022 Musculoskeletal pain; Tolerates droperidol without negative side effects Metoclopramide Hcl Anxiety,Other (See comments) Low 09/17/2018 Other reaction: muscle spasm Sulfa (Sulfonamide Antibiotics) Other (See comments) Medium Reaction: neurological symptoms per patient Medications hyoscyamine (OSCIMIN) 0.125 mg Take 1 tablet (0.125 mg total) by mouth every 8 (eight) hours as needed Active lidocaine viscous (XYLOCAINE) 2 % solutionIndicatio ns:Mouth Irritation Apply 10 mL to the mouth or throat every 3 (three) hours 200 mL Active chlorhexidine (PERIDEX) 0.12 % oral rinse [...] total) by mouth daily 90 tablet [address] (PROTONIX) 40 mg EC tabletIndications :Treatment of Non-Bleeding Gastric Disorder Take 1 tablet (40 mg total) by mouth daily 90 tablet 1 Active dicyclomine (BENTYL) 20 mg tabletIndications :Enterocolitis Take 1 tablet (20 mg total) by mouth 2 (two) times a day as needed (Abdominal cramping) 30 tablet Active ketorolac (TORADOL) 10 mg tablet Take 1 tablet (10 mg total) by mouth every 6 (six) hours as needed for pain 20 tablet Active ondansetron (ZOFRAN) 4 mg tablet Take 1 tablet (4 mg total) by mouth every 6 (six) hours 12 tablet Active prochlorperazine (COMPAZINE) 10 mg tablet Take 1 tablet (10 mg total) by mouth 2 (two) times a day as needed for nausea or vomiting 10 tablet 2024 Discontinued(S top Taking at Discharge) famotidine (PEPCID) 40 mg tablet Take 1 tablet (40 mg total) by mouth daily 30 tablet 2024 Discontinued(R eorder) ondansetron ODT (ZOFRAN-ODT) 4 mg disintegrating tablet Take 1 tablet (4 mg total) by mouth every 8 (eight) hours as needed for nausea or vomiting 20 tablet 025 2024 Discontinued(D uplicate order) lidocaine viscous (XYLOCAINE) 2 % solutionIndicatio ns:Mouth Irritation Apply 10 mL to the mouth or throat every 3 (three) hours 200 mL 3 025 2024 Discontinued cephalexin (KEFLEX) 500 mg capsule Take 1 capsule (500 mg total) by mouth 2 (two) times a day for 10 days 20 capsule 025 2024 Discontinued(S top Taking at Discharge) amoxicillin-clavu [...] 03/25/2024 Assessment & Plan (03/25/2024 11:50 AM ORDER DETAILER): - suspect just muscle strain - will check xray - offered PT but pt refused. Protein-calorie malnutrition, moderate Abdominal pain, generalized 09/19/2023 Assessment & Plan (09/25/2023 12:23 PM CDT): - improving - will give small amount of norco until pt heals from his procedure - f/u with GI Current use of usp anticoagulation 023 Assessment & Plan (09/25/2023 12:23 PM CDT): - stable - continue eliquis Assessment & Plan (03/20/2023 11:08 AM ORDER DETAILER): - restart eliquis due to life long need for anticoagulation History of thrombosis 03/20/2023 Assessment & Plan (09/25/2023 12:22 PM CDT): - stable - continue eliquis Assessment & Plan (03/20/2023 11:08 AM ORDER DETAILER): - restart eliquis due to life long [...] famotidine Assessment & Plan (03/20/2023 11:08 AM ORDER DETAILER): - stable - continue current medication Renal [...] eval. Assessment & Plan (03/25/2024 11:49 AM ORDER DETAILER): - ref to derm for eval Drug [...] pain Assessment & Plan (03/25/2024 11:49 AM ORDER DETAILER): - poor control - continue hyosciamine, famotidine, zofran - ref to GI for continued treatment Assessment & Plan (03/20/2023 11:07 AM ORDER DETAILER): - stable - continue current medication Duodenal [...] prn Assessment & Plan (07/15/2019 11:44 AM ORDER DETAILER): - stable - continue bentyl and amitriptyline [...] medication Assessment & Plan (07/15/2019 11:44 AM ORDER DETAILER): - stable - continue creon Annual physical [...] able Assessment & Plan (07/15/2019 11:46 AM ORDER DETAILER): - encourage healthy diet, exercise - check labs - encouraged quitting smoking Enteritis 02/18/2019 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 Assessment & Plan (07/15/2019 11:37 AM ORDER DETAILER): - encouraged pt to quit smoking Abdominal [...] GI Assessment & Plan (03/20/2023 11:07 AM ORDER DETAILER): - stable - continue current medication per [...] of multiple sites 10/18/2022 09/25/2023 Hypertension, essential 09/17/2022 0511/2023 Assessment & Plan (03/20/2023 11:08 AM ORDER DETAILER): - stable off meds - will monitor [...] 09/25/2023 Assessment & Plan (03/26/2021 11:41 AM ORDER DETAILER): - stable today - continue current medications [...] lexapro Assessment & Plan (07/15/2019 11:38 AM ORDER DETAILER): - stable - continue current plan Gastroesophageal reflux dise ase without esophagitis 07/15/2019 03/18/2023 Overview (07/15/2019): - GERD managed by Dr Woodard - Pt on omeprazole and carafate for sx control Assessment & Plan (01/01/2021 12:09 PM CDT): - stable - continue current medication Assessment & Plan (02/07/2020 2:32 PM CDT): - stable - continue current medication Assessment & Plan (07/15/2019 11:38 AM ORDER DETAILER): - stable - continue omeprazole and carafate Viral illness 07/08/2019 02/12/2021 Assessment & Plan (07/09/2019 9:12 AM ORDER DETAILER): Medrol Dosepak as directed. Recommended Mucinex plain in the blue box as directed x 1 week. Instructed to increase clear liquids, rest, and vitamin C in diet. Advised to sleep with head elevated and use a cool mist vaporizer Vicks VapoRub at bedtime. Recommended follow-up with PCP if symptoms worsen, don't improve, or new symptoms develop. Leukocytosis 10/18/2018 03/26/2021 Mild malnutrition 10/18/2018 03/18/2023 Assessment & Plan (12/03/2020 3:05 PM CDT): - continue with creon and mariajuana prn Other chronic pancreatitis 09/17/2018 1 05/26/2020 Overview (09/17/2018): Added automatically from request for surgery [id number] Assessment & Plan (02/12/2021 11:23 AM CDT): - encouraged pt to f/u with new GI - continue hyoscyamine Assessment & Plan (01/01/2021 12:10 PM CDT): - continue prn oxycodone for now - discussed need to wean off of this as this is not a viable usp solution - will ref to pain management [...] medication Assessment & Plan (07/15/2019 11:36 AM ORDER DETAILER): - controlled - continue current plan Chronic [...] = 0.6 oz pur e alcohol) [facility] Utilities Answer Date Recorded In [...] often do you attend chur ch or mandaen services? Never 08/11/2024 Do you belong to any clubs o r organizations such as adventism groups, unions, fraternal or athletic groups, or [...] any time in the past 12 [facility], were you homeless or living in a prison (including now)? No 08/11/2024 Personal Safety Answer Date Recorded Have you ever been in or are you currently in a harmful physical or emotional relationship or is someone making you feel afraid or unsafe? Denies 10/13/2024 Sex and Gender Information Value Date Recorded Sex Assigned at Not on file Legal Sex Male 3:38 AM ORDER DETAILER Gender Identity Not on file Sexual Orientation [...] Mass Index 23.68 10/13/2024 9:44 PM CDT Plan of Treatment Not on file Medical Devices Explanted Type Area Safety Investigator Device Identifier Shelf Expiration Date Model / Serial / Lot [employer] [id number] Connell Flexi-Stent 7fr 5cm Small Pigtail Flexible .035in Stent - [id number] Implanted:Qty: 1 on 09/18/2018 by Vimal Woodruff MD at [facility] Explanted:Qty: 1 on 09/20/2018 at [facility] Stent N/A: Pancreas [employer] 06/10/2023 [id number] / / [id number] Conmed Gina [id number] [place] Viabil 10mm 8.5fr 6cm 200cm Fully Covered Self Expand Pull - [id number] - [id number] Implanted:Qty: 1 on 09/18/2018 by Vimal Woodruff MD at [facility] Explanted:Qty: 1 on 09/20/2018 at [facility] Stent N/A: Bile Duct Conmed Gina 06/29/2021 [id number] / [id number] / [employer] Connell Flexi-Stent 7fr 9cm Small Pigtail Flexible .035in Stent 6575 - [id number] Implanted:Qty: 1 on 02/07/2022 by Vimal Woodruff MD at [facility] Explanted:Qty: 1 on 02/10/2022 by Vimal Woodruff MD at [facility] Stent N/A: Pancreas [employer] 09/07/2026 [id number] / / [id number] [place] [place] [employer] Gina Wallflex 10mm X 60mm Fully Covered Biliary [id number] - [id number] Implanted:Qty: 1 on 02/07/2022 by Vimal Woodruff MD at [facility] Explanted:Qty: 1 on 02/10/2022 by Vimal Woodruff MD at [facility] Stent N/A: Bile Duct [employer] [place] [employer] Gina 11/04/2023 [id number] / / [id number] [employer] Connell Flexi-Stent 7fr 9cm Small Pigtail Flexible .035in Stent 6575 - [id number] Implanted:Qty: 1 on 09/21/2023 by Vimal Woodruff MD at [facility] Explanted:Qty: 1 on 09/23/2023 by Vimal Woodruff MD at [facility] Stent N/A: Pancreas [employer] 03/11/2028 [id number] / / [id number] Description:Not present at b eginning of case. Self migrated out [employer] Gina Wallflex 10mm X 60mm Fully Covered Biliary [id number] - [id number] Implanted:Qty: 1 on 09/21/2023 by Vimal Woodruff MD at [facility] Explanted:Qty: 1 on 09/23/2023 by Vimal Woodruff MD at [facility] Stent N/A: Bile Duct [employer] [place] [employer] Gina 08/02/2025 [id number] / / [id number] Procedures Procedure Name Priority Date/Time Associated Diagnosis Comments ADD ON LAB TEST Add-On 10/14/2024 4:[address] ABDOMEN PELVIS W CONTRAST ED 10/2024 1:38 AM CDT URINALYSIS AND REFLEX TO MICROSCOPIC AND CULTURE STAT 10/13/2024 10:10 PM CDT LIPASE STAT 10/13/2024 10:06 PM CDT EGFR STAT 10/13/2024 10:06 PM CDT DIFFERENTIAL AUTO STAT 10/13/2024 10:06 PM CDT COMPREHENSIVE METABOLIC PANEL STAT 10:06 PM CDT CBC WITH AUTO DIFFERENTIAL STAT 10/13 10:06 PM CDT ECG 12-LEAD STAT 10/13/2024 9:51 PM CDT DIFFERENTIAL AUTO Timed 10/13/2024 7:40 AM CDT CBC WITH AUTO DIFFERENTIAL Timed 10/13 7:40 AM CDT SEPSIS LACTATE WITH REFLEX STAT 10/13 4:57 AM CDT DRUGS OF ABUSE SCREEN, URINE WITH REFLEX CONFIRMATION STAT 10/13/2024 4:13 AM CDT EGFR STAT 10/13/2024 4:08 AM CDT DIFFERENTIAL AUTO STAT 10/13/2024 4:08 AM CDT TROPONIN T HIGH-SENSITIVITY SERIES (BASELINE, 2HR, 4HR, 6HR) STAT 10/13/2024 4:08 AM CDT LIPASE STAT 10/13/2024 4:08 AM CDT COMPREHENSIVE METABOLIC PANEL STAT 4:08 AM CDT CBC WITH AUTO DIFFERENTIAL STAT 10/13 4:08 AM CDT URINALYSIS AND REFLEX TO MICROSCOPIC AND CULTURE STAT 10/13/2024 4:08 AM CDT ECG 12-LEAD STAT 10/13/2024 3:54 AM CDT EGFR STAT 10/08/2024 7:25 PM CDT DIFFERENTIAL [...] CDT from Last 3 Months Results * Lipase - Add on lab test (10/14/2024 4:29 AM CDT) Acceptable Yes Blood 10/14/2024 4:29 AM CDT 10/14/2024 4:29 AM CDT Narrative [facility] - 10/14/2024 4:30 AM CDT Name of Test->Lipase us Yusef Bear MD LAB BLOOD ORDERABLES Final Result [facility] [address] Department [place] [address] * CT Abdomen Pelvis W Contrast (10/14/2024 1:38 AM CDT) Anatomical Region Laterality Modality Body N/A Computed Tomogra phy 10/14/2024 1:29 AM CDT Impressions 10/14/2024 9:11 AM CDT No acute abnormality in the abdomen or pelvis. No pancreatitis. For the purposes of air quality chemist, this study was initially interpreted by teleradiology. [...] pelvis. No pancreatitis. For the purposes of air quality chemist, this study was initially interpreted by teleradiology. [...] ur Yellow Yellow Clarity, ur Clear Clear [facility] Specific gravity, ur 1.010 1.003 - 1.030 [facility] pH, urine 6.5 [facility] Comment: Interpretive Data U rine pH is affected by diet, medications, systemic acid-base disturbances, and renal tubular function. pH may affect urinary stone formation. For example, urine pH below 6.0 may help reduce the tendency for calcium phosphate stones and pH greater than 6.0 may reduce the tendency for uric acid stone formation. Source: [facility] [employer] Current Interpretive Data was last revised on 2017 Protein, ur ql Negative Negative [facility] Glucose, ur ql Negative Negative [facility] Ketones, ur 1+(A) Negative [facility] Bilirubin, ur Negative Negative [facility] Blood, ur Negative Negative [facility] Urobilinogen, ur <2.0 <2.0 mg/dL [facility] Nitrite, ur Negative Negative [facility] Leukocyte esterase, ur Negative Negative [facility] UA reflex comment Reflex conditions for microscopic UA and culture not met. [facility] Urine 10/13/2024 10:1 0 PM CDT 10/13/2024 10:11 PM CDT Abdiel Donaldson MD LAB MICROBIOLOGY - GENERAL O RDERABLES Final Result Performing Organization Address [facility] Co de Phone Number [facility] [address] Department [place] [address] * eGFR (10/13/2024 10:06 PM CDT) eGFR >90 >=60 mL/min/1. 73 [...] ORDERABLES Final R esult Performing Organization Address City/[facility]/ZIP Co de Phone Number [facility] [address] Department of Laboratories [place], [place] [id number] * (ABNORMAL) Differential, auto (10/13/2024 10:06 PM CDT) Neutrophil abs 11.31(H) 1.50 - 6.50 K/cumm Imm gran abs 0.06 0.00 - 0.10 K/cumm [facility] Lymphocyte abs 1.47 0.80 - 3.30 K/cumm [facility] Monocyte abs 1.09(H) 0.20 - 0.80 K/cumm [facility] Eosinophil abs 0.07 0.00 - 0.50 K/cumm [facility] Basophil abs 0.04 0.00 - 0.10 K/cumm [facility] Neutrophil pct 80.5 % [facility] Comment: Interpretive Data Percent cell count reference ranges are not reported, since discordance with absolute values may lead to misinterpretation of CBC data. Current Interpretive Data was last revised on 2017. Imm gran pct 0.4 % [facility] Comment: Interpretive Data Percent cell count reference ranges are not reported, since discordance with absolute values may lead to misinterpretation of CBC data. Current Interpretive Data was last revised on 2017. Lymphocyte pct 10.5 % [facility] Comment: Interpretive Data Percent cell count reference ranges are not reported, since discordance with absolute values may lead to misinterpretation of CBC data. Current Interpretive Data was last revised on 2017. Monocyte pct 7.8 % [facility] Comment: Interpretive Data Percent cell count reference ranges are not reported, since discordance with absolute values may lead to misinterpretation of CBC data. Current Interpretive Data was last revised on 2017. Eosinophil pct 0.5 % [facility] Comment: Interpretive Data Percent cell count reference ranges are not reported, since discordance with absolute values may lead to misinterpretation of CBC data. Current Interpretive Data was last revised on 2017. Basophil pct 0.3 % [facility] Comment: Interpretive Data Percent cell count reference ranges are not reported, since discordance with absolute values may lead to misinterpretation of CBC data. Current Interpretive Data was last revised on 2017. Blood 10/13/2024 10:0 6 PM CDT 10/13/2024 10:43 PM CDT us Abdiel Donaldson MD LAB BLOOD ORDERABLES Final R esult [facility] [address] Department [place] [address] * (ABNORMAL) CBC with auto differential (10/13/2024 10:06 PM CDT) [facility] WBC 14.04(H) 3.80 - 9.90 K/cumm Hgb 14.1 13.0 - 17.5 g/dL [facility] Hct 43.6 38.9 - 50.3 % [facility] Plt 312 150 - 400 K/cumm [facility] MPV 10.3 9.1 - 12.[address] [facility] RBC 5.01 4.30 - 5.80 M/cumm [facility] MCV 87.0 81.3 - 96.[address] [facility] MCH 28.1 27.1 - 33.[address] [facility] MCHC 32.3 32.3 - 35.7 g/dL [facility] RDW CV 15.6(H) 11.1 - 14.9 % [facility] RDW SD 49.1(H) 35.7 - 48.[address] [facility] NRBC abs 0.00 0.00 - 0.01 K/cumm [facility] Blood Venous blood specimen / Unknown 10/13/2024 10:06 PM CDT 10/13/2024 10:43 PM CDT Abdiel Donaldson MD LAB BLOOD ORDERABLES Final R esult Performing Organization Address City/[facility]/ZIP Co de Phone Number [facility] [address] Department [place] [address] * (ABNORMAL) Lipase (10/13/2024 10:06 PM CDT) [facility] Lipase 119(H) 10 - 99 Units/L Blood 10/13/2024 10:0 6 PM CDT 10/13/2024 10:43 PM CDT Abdiel Donaldson MD LAB BLOOD ORDERABLES Final R esult [facility] [address] Department [place] [address] * (ABNORMAL) Comprehensive metabolic panel (10/13/2024 10:06 PM CDT) Sodium 144 135 - 145 mmol/L Potassium, pl 3.7 3.3 - 4.9 mmol/L [facility] Chloride 104 97 - 110 mmol/L [facility] CO2 22 22 - 32 mmol/L [facility] Anion gap 18(H) 2 - 15 mmol/L [facility] BUN 7 6 - 25 mg/dL [facility] Creatinine 0.91 0.80 - 1.30 mg/dL [facility] Glucose 95 70 - 199 mg/dL [facility] Comment: Interpretive Data Fasting [...] Calcium 9.3 8.5 - 10.3 mg/dL [facility] Bilirubin, total 0.4 0.1 - 1.2 mg/dL [facility] Protein, pl 7.0 6.5 - 8.5 g/dL [facility] Albumin 4.5 3.5 - 5.0 g/dL [facility] Alk phos 82 40 - 130 Units/L [facility] ALT 16 7 - 55 Units/L [facility] AST 19 10 - 50 Units/L [facility] Blood Venous blood specimen / Unknown 10/13/2024 10:06 PM CDT 10/13/2024 10:43 PM CDT us Abdiel Donaldson MD LAB BLOOD ORDERABLES Final R esult [facility] [address] Department [place] [address] * ECG 12 lead (10/13/2024 9:51 PM CDT) 10/13/2024 9:51 PM CDT Narrative [facility] - 10/14/2024 9:31 AM CDT Vent Rate: 68 bpm RR Interval: 880 msec [place] Interval: 129 msec QRS Duration: 113 msec QT Interval: 357 msec QTC Interval: 374 msec P-R-T [place]: 26 - 53 - 61 degrees IMPRESSION: SINUS RHYTHM WITH A BORDERLINE SHORT [place] INTERVAL WITH MARKED SINUS ARRHYTHMIA INCOMPLETE RIGHT BUNDLE-BRANCH BLOCK BORDERLINE ECG Electronically Signed By: Calvin Sanabria MD mobap us Jose Francisco Jessica MD ECG ORDERABLES Final Resu lt [facility] * (ABNORMAL) Differential, auto (10/13/2024 7:40 AM CDT) Neutrophil abs 12.72(H) 1.50 - 6.50 K/cumm Imm gran abs 0.06 0.00 - 0.10 K/cumm [facility] Lymphocyte abs 0.98 0.80 - 3.30 K/cumm [facility] Monocyte abs 0.59 0.20 - 0.80 K/cumm [facility] Eosinophil abs 0.01 0.00 - 0.50 K/cumm [facility] Basophil abs 0.04 0.00 - 0.10 K/cumm [facility] Neutrophil pct 88.3 % [facility] Comment: Interpretive Data Percent cell count reference ranges are not reported, since discordance with absolute values may lead to misinterpretation of CBC data. Current Interpretive Data was last revised on 2017. Imm gran pct 0.4 % [facility] Comment: Interpretive Data Percent cell count reference ranges are not reported, since discordance with absolute values may lead to misinterpretation of CBC data. Current Interpretive Data was last revised on 2017. Lymphocyte pct 6.8 % [facility] Comment: Interpretive Data Percent cell count reference ranges are not reported, since discordance with absolute values may lead to misinterpretation of CBC data. Current Interpretive Data was last revised on 2017. Monocyte pct 4.1 % [facility] Comment: Interpretive Data Percent cell count reference ranges are not reported, since discordance with absolute values may lead to misinterpretation of CBC data. Current Interpretive Data was last revised on 2017. Eosinophil pct 0.1 % [facility] Comment: Interpretive Data Percent cell count reference ranges are not reported, since discordance with absolute values may lead to misinterpretation of CBC data. Current Interpretive Data was last revised on 2017. Basophil pct 0.3 % [facility] Comment: Interpretive Data Percent cell count reference ranges are not reported, since discordance with absolute values may lead to misinterpretation of CBC data. Current Interpretive Data was last revised on 2017. Blood 10/13/2024 7:40 AM CDT 10/13/2024 7:42 AM CDT us Rodney Mejia MD LAB BLOOD ORDERABLES nal Result [facility] [address] Department [place] [address] * (ABNORMAL) CBC with auto differential (10/13/2024 7:40 AM CDT) WBC 14.40(H) 3.80 - 9.90 K/cumm Hgb 13.1 13.0 - 17.5 g/dL [facility] Hct 40.8 38.9 - 50.3 % [facility] Plt 242 150 - 400 K/cumm [facility] MPV 9.9 9.1 - 12.3 fL [facility] RBC 4.61 4.30 - 5.80 M/cumm [facility] MCV 88.5 81.3 - 96.4 fL [facility] MCH 28.4 27.1 - 33.3 pg [facility] MCHC 32.1(L) 32.3 - 35.7 g/dL [facility] RDW CV 15.4(H) 11.1 - 14.9 % [facility] RDW SD 49.5(H) 35.7 - 48.1 fL [facility] NRBC abs 0.00 0.00 - 0.01 K/cumm [facility] Blood 10/13/2024 7:40 AM CDT 10/13/2024 7:42 AM CDT [facility]ative [facility] 10/13/2024 7:45 AM CDT For after fluids Rodney Mejia MD LAB BLOOD ORDERABLES Fi nal Result Performing Organization Address [facility] de Phone Number [address] [address] * Sepsis Lactate w/ Reflex (10/13/2024 4:57 AM CDT) Pathologist [facility] Sepsis Lactate 1.1 0.7 - 2.0 mmol/L Blood 10/13/2024 4:57 AM CDT 10/13/2024 4:59 AM CDT Rodney Mejia MD LAB BLOOD ORDERABLES Fi nal Result Performing Organization Address [facility] de Phone Number [address] [address] * (ABNORMAL) Drugs of Abuse Screen, Urine with Reflex Confirmation (10/13/2024 4:13 AM CDT) Pathologist [facility] Amphetamine, ur Not Detected CutOff [...] 2022. Benzodiazepines, ur Not Detected CutOff 100ng/mL [facility] Comment: Interpretive Data - Benzodiazepines: Samples containing greater than 100 ng/mL nordiazepam or other cross-reacting compounds are reported as positive. False positive and false negative results are possible. Confirmatory testing required for definitive results. Current Interpretive Data was last reviewed 2022. Cannabinoids, ur Screen Positive, presumptive (A) CutOff 50 ng/mL [facility] Comment: Interpretive Data - Cannabinoids: Samples containing greater than 50 ng/mL delta-9 THC -COOH or other cross- reacting compounds are reported as positive. False positive and false negative results are possible. Confirmatory testing required for definitive results. Current Interpretive Data was last reviewed 2022. Cocaine, ur Not Detected CutOff 150ng/mL [facility] Comment: Interpretive Data - Cocaine: Samples containing greater than 150 ng/mL benzoylecgonine or other cross- reacting compounds are reported as positive. False positive and false negative results are possible. Confirmatory testing required for definitive results. Current Interpretive Data was last reviewed 2022. Fentanyl, Ur Not Detected CutOff 5 ng/mL [facility] Comment: Interpretive Data - Fentanyl: Samples containing greater than 5 ng/mL norfentanyl, fentanyl, or other cross-reacting fentanyl compounds are reported as positive. False positive and false negative results are possible. Confirmatory testing required for definitive results. Current Interpretive Data was last reviewed 2023. Methadone, ur Not Detected CutOff 300ng/mL [facility] Comment: Interpretive Data - Methadone: Samples containing greater than 300 ng/mL d,l-methadone or other cross-reacting compounds are reported as positive. False positive and false negative results are possible. Confirmatory testing required for definitive results. Current Interpretive Data was last reviewed 2022. Opiates, ur Not Detected CutOff 300ng/mL [facility] Comment: Interpretive Data - Opiates: Samples containing greater than 300 ng/mL morphine or other cross-reacting compounds are reported as positive. False positive and false negative results are possible. Confirmatory testing required for definitive results. Current Interpretive Data was last reviewed 2022. Oxycodone, ur Not Detected CutOff 100ng/mL [facility] Comment: Interpretive Data - Oxycodone: Samples [...] Data was last reviewed 2022. Urine Creatinine 90 mg/dL [facility] Comment: Interpretive Data Urine Creatinine: < 10 mg/dL is extremely dilute = or > 10 but < 20 mg/dL is dilute = or > 20 mg/dL is normal Current Interpretive Data was last revised on 2017. Urine 10/13/2024 4:13 AM CDT 10/13/2024 4:16 AM CDT Narrative [facility] - 10/13/2024 4:45 AM CDT Drug of Abuse screening is performed by immunoassay for medical purposes only. This is not to be used for Pain Management purposes. If Detected, confirmation testing will be performed for Amphetamines, Cocaine, Fentanyl, Methadone, Opiates, Oxycodone or Phencyclidine. Rodney Mejia MD LAB URINE ORDERABLES Fi nal Result [facility] [address] [facility] [address] Department [place] [address] * Troponin T high-sensitivity series (baseline, 2hr, 4hr, 6hr) (10/13/2024 4:08 AM CDT) Trop T hs <6 <=22 ng/L Comment: Interpretive Data For further hscTnT resources including the diagnostic algorithm and an aid in interpretation, copy and paste this link: https://nrl.testcatalog.org/show/hsTrop Current Interpretive Data last revised 2020. Blood 10/13/2024 4:08 AM CDT 10/13/2024 4:16 AM CDT Rodney Mejia MD LAB BLOOD ORDERABLES Fi nal Result Performing Organization Address [facility] Co de Phone Number NEEL [address] [address] * eGFR (10/13/2024 4:08 AM CDT) Pathologist [facility] eGFR 83 >=60 mL/min/1. 73 m2 Comment: Interpretive Data [...] data was last reviewed 2021. Blood 10/13/2024 4:08 AM CDT 10/13/2024 4:16 AM CDT Rodney Mejia MD LAB BLOOD ORDERABLES Fi nal Result Performing Organization Address [facility] Co de Phone Number NEEL [address] [place] [employer] [place] [address] * (ABNORMAL) Differential, auto (10/13/2024 4:08 AM CDT) Pathologist [facility] Neutrophil abs 12.87(H) 1.50 - 6.50 K/cumm Imm gran abs 0.09 0.00 - 0.10 K/cumm [facility] Lymphocyte abs 2.58 0.80 - 3.30 K/cumm [facility] Monocyte abs 1.61(H) 0.20 - 0.80 K/cumm [facility] Eosinophil abs 0.19 0.00 - 0.50 K/cumm [facility] Basophil abs 0.07 0.00 - 0.10 K/cumm [facility] Neutrophil pct 74.0 % [facility] Comment: Interpretive Data Percent cell count reference ranges are not reported, since discordance with absolute values may lead to misinterpretation of CBC data. Current Interpretive Data was last revised on 2017. Imm gran pct 0.5 % [facility] Comment: Interpretive Data Percent cell count reference ranges are not reported, since discordance with absolute values may lead to misinterpretation of CBC data. Current Interpretive Data was last revised on 2017. Lymphocyte pct 14.8 % [facility] Comment: Interpretive Data Percent cell count reference ranges are not reported, since discordance with absolute values may lead to misinterpretation of CBC data. Current Interpretive Data was last revised on 2017. Monocyte pct 9.2 % [facility] Comment: Interpretive Data Percent cell count reference ranges are not reported, since discordance with absolute values may lead to misinterpretation of CBC data. Current Interpretive Data was last revised on 2017. Eosinophil pct 1.1 % [facility] Comment: Interpretive Data Percent cell count reference ranges are not reported, since discordance with absolute values may lead to misinterpretation of CBC data. Current Interpretive Data was last revised on 2017. Basophil pct 0.4 % [facility] Comment: Interpretive Data Percent cell count reference ranges are not reported, since discordance with absolute values may lead to misinterpretation of CBC data. Current Interpretive Data was last revised on 2017. Blood 10/13/2024 4:08 AM CDT 10/13/2024 4:16 AM CDT us Rodney Mejia MD LAB BLOOD ORDERABLES Fi nal Result [facility] [address] [facility] Department [place] [address] * (ABNORMAL) Urinalysis reflex to microscopic and culture Urine (10/13/2024 4:08 AM CDT) Color, ur Yellow Yellow Clarity, ur Cloudy(A) Clear [facility] Specific gravity, ur 1.013 1.003 - 1.030 [facility] pH, urine 7.5 [facility] Comment: Interpretive Data U rine pH is affected by diet, medications, systemic acid-base disturbances, and renal tubular function. pH may affect urinary stone formation. For example, urine pH below 6.0 may help reduce the tendency for calcium phosphate stones and pH greater than 6.0 may reduce the tendency for uric acid stone formation. Source: [facility] Current Interpretive Data was last revised on 2017 Protein, ur ql Negative Negative [facility] Glucose, ur ql Negative Negative [facility] Ketones, ur Negative Negative [facility] Bilirubin, ur Negative Negative [facility] Blood, ur Negative Negative [facility] Urobilinogen, ur <2.0 <2.0 mg/dL [facility] Nitrite, ur Negative Negative [facility] Leukocyte esterase, ur Negative Negative [facility] UA reflex comment Reflex conditions for microscopic UA and culture not met. [facility] Urine 10/13/2024 4:08 AM CDT 10/13/2024 4:16 AM CDT Rodney Mejia MD LAB MICROBIOLOGY - [facility] ORDERABLES Final Result [facility] [address] Department [place] [address] * (ABNORMAL) CBC with auto differential (10/13/2024 4:08 AM CDT) WBC 17.41(H) 3.80 - 9.90 K/cumm Hgb 13.8 13.0 - 17.5 g/dL [facility] Hct 41.2 38.9 - 50.3 % [facility] Plt 291 150 - 400 K/cumm [facility] MPV 9.9 9.1 - 12.3 fL [facility] RBC 4.87 4.30 - 5.80 M/cumm [facility] MCV 84.6 81.3 - 96.4 fL [facility] MCH 28.3 27.1 - 33.3 pg [facility] MCHC 33.5 32.3 - 35.7 g/dL [facility] RDW CV 15.4(H) 11.1 - 14.9 % [facility] RDW SD 46.5 35.7 - 48.1 fL [facility] NRBC abs 0.00 0.00 - 0.01 K/cumm [facility] Blood Venous blood specimen / Unknown 10/13/2024 4:08 AM CDT 10/13/2024 4:16 AM CDT Rodney Mejia MD LAB BLOOD ORDERABLES Fi nal Result Performing Organization Address [facility] de Phone Number [address] [place] [place] [address] * (ABNORMAL) Lipase (10/13/2024 4:08 AM CDT) [facility] Lipase 270(H) 10 - 99 Units/L Blood Venous blood specimen / Unknown 10/13/2024 4:08 AM CDT 10/13/2024 4:16 AM CDT Rodney Mejia MD LAB BLOOD ORDERABLES Fi nal Result Performing Organization Address [facility] de Phone Number [address] [place] [place] [address] * Comprehensive metabolic panel (10/13/2024 4:08 AM CDT) [facility] Sodium 141 135 - 145 mmol/L Potassium, pl 3.8 3.3 - 4.9 mmol/L [facility] Chloride 104 97 - 110 mmol/L [facility] CO2 22 22 - 32 mmol/L [facility] Anion gap 15 2 - 15 mmol/L [facility] BUN 12 6 - 25 mg/dL [facility] Creatinine 1.13 0.80 - 1.30 mg/dL [facility] Glucose 110 70 - 199 mg/dL [facility] Comment: Interpretive Data Fasting glucose [...] 2022. Calcium 9.2 8.5 - 10.3 mg/dL [facility] Bilirubin, total 0.3 0.1 - 1.2 mg/dL [facility] Protein, pl 6.8 6.5 - 8.5 g/dL [facility] Albumin 4.2 3.5 - 5.0 g/dL [facility] Alk phos 77 40 - 130 Units/L [facility] ALT 15 7 - 55 Units/L [facility] AST 19 10 - 50 Units/L [facility] Blood 10/13/2024 4:08 AM CDT 10/13/2024 4:16 AM CDT Rodney Mejia MD LAB BLOOD ORDERABLES Fi nal Result Performing Organization Address [facility] Co de Phone Number [facility] [address] Department [place] [address] * ECG 12 lead (10/13/2024 3:54 AM CDT) Ventricular Rate EKG/Min 66 BPM [facility] Atrial Rate 66 BPM [facility] [place]-Interval (MSEC) 86 ms [facility] QRS-Interval (MSEC) 100 ms [facility] QT-Interval (MSEC) 376 ms [facility] QTc 394 ms [facility] P [place] 3 degrees [facility] R [place] 45 degrees [facility] T [place] 52 degrees [facility] Diagnosis Sinus rhythm with short [place] Incomplete right bundle branch block Confirmed by HOLLAND MELGAR M.D. ([id number]) on 10/13/2024 9:29:09 AM [facility] 10/13/2024 3:54 AM CDT 10/13/2024 9:29 AM CDT Rodney Mejia MD ECG ORDERABLES Final R esult Performing Organization Address [facility] Co de Phone Number [facility] * eGFR (10/08/2024 7:25 PM CDT) eGFR [...] was last reviewed 2021. Testing performed by: [address] [address] Blood 10/08/2024 7:25 PM CDT 10/08/2024 7:29 PM CDT us Lilliana LAWTON LAB BLOOD ORDERABLES Final Result Performing Organization Address [facility] Co de Phone Number [facility] [address] [place] [address] * (ABNORMAL) Differential, auto (10/08/2024 7:25 PM CDT) Neutrophil abs 5.02 1.50 - 6.50 K/cumm Comment:Testing performed by : [address] [address] Imm gran abs 0.04 0.00 - 0.10 K/cumm NEEL SMITH Comment:Testing performed by : [address] [address] Lymphocyte abs 3.13 0.80 - 3.30 K/cumm NEEL Comment:Testing performed by : [facility], [address] [place] [address], [place]., [address] Monocyte abs 1.11(H) 0.20 - 0.80 K/cumm [facility] Comment:Testing performed by : [address], [place]., [address] Eosinophil abs 0.10 0.00 - 0.50 K/cumm [facility] Comment:Testing performed by : [address], [place]., [address] Basophil abs 0.06 0.00 - 0.10 K/cumm [facility] Comment:Testing performed by : [address] [address] Neutrophil pct 53.1 % [facility] Comment: Interpretive Data Percent cell count reference ranges are not reported, since discordance with absolute values may lead to misinterpretation of CBC data. Current Interpretive Data was last revised on 2017. Testing performed by: [address] [address] Imm gran pct 0.4 % [facility] Comment: Interpretive Data Percent cell count reference ranges are not reported, since discordance with absolute values may lead to misinterpretation of CBC data. Current Interpretive Data was last revised on 2017. Testing performed by: [address] [address] Lymphocyte pct 33.1 % [facility] Comment: Interpretive Data Percent cell count reference ranges are not reported, since discordance with absolute values may lead to misinterpretation of CBC data. Current Interpretive Data was last revised on 2017. Testing performed by: [address] [address] Monocyte pct 11.7 % [facility] Comment: Interpretive Data Percent cell count reference ranges are not reported, since discordance with absolute values may lead to misinterpretation of CBC data. Current Interpretive Data was last revised on 2017. Testing performed by: [address] [address] Eosinophil pct 1.1 % [facility] Comment: Interpretive Data Percent cell count reference ranges are not reported, since discordance with absolute values may lead to misinterpretation of CBC data. Current Interpretive Data was last revised on 2017. Testing performed by: [address] [address] Basophil pct 0.6 % NE[facility] SMITH Comment: Interpretive Data Percent cell count reference ranges are not reported, since discordance with absolute values may lead to misinterpretation of CBC data. Current Interpretive Data was last revised on 2017. Testing performed by: [address] [address] Blood 10/08/2024 7:25 PM CDT 10/08/2024 7:29 PM CDT Lilliana LAWTON LAB BLOOD ORDERABLES Final Result [facility] SMITH [address] [facility] [address] [place] [address] * (ABNORMAL) CBC with auto differential (10/08/2024 7:25 PM CDT) WBC 9.46 3.80 - 9.90 K/cumm Comment:Testing performed by : [address] [address] Hgb 15.0 13.0 - 17.5 g/dL NEEL SMITH Comment:Testing performed by : [address] [address] Hct 44.6 38.9 - 50.3 % NEEL SMITH Comment:Testing performed by : [address] [address] Plt 321 150 - 400 K/cumm NEEL SMITH Comment:Testing performed by : [address] [address] MPV 10.0 9.1 - 12.3 fL NEEL SMITH Comment:Testing performed by : [address] [address] RBC 5.38 4.30 - 5.80 M/cumm NEEL SMITH Comment:Testing performed by : [address] [address] MCV 82.9 81.3 - 96.4 fL NEEL SMITH Comment:Testing performed by : [address], [address] MCH 27.9 27.1 - 33.3 pg NEEL SMITH Comment:Testing performed by : [address] [address] MCHC 33.6 32.3 - 35.7 g/dL NEEL SMITH Comment:Testing performed by : [address], [address] RDW CV 15.5(H) 11.1 - 14.9 % NEEL SMITH Comment:Testing performed by : [address], [address] RDW SD 46.7 35.7 - 48.1 fL NEEL SMITH Comment:Testing performed by : [address], [address] NRBC abs 0.00 0.00 - 0.01 K/cumm NEEL Comment:Testing performed by : [address], [address] Blood Venous blood specimen / Unknown 10/08/2024 7:25 PM CDT 10/08/2024 7:29 PM CDT Lilliana LAWTON LAB BLOOD ORDERABLES Final Result [address] Department [place] [address] * Lipase (10/08/2024 7:25 PM CDT) Lipase 42 10 - 99 Units/L Comment:Testing performed by : [address], [address] Blood Venous blood specimen / Unknown 10/08/2024 7:25 PM CDT 10/08/2024 7:29 PM CDT Lilliana LAWTON LAB BLOOD ORDERABLES Final Result [place] [id number] [facility] Department [place] [address] * Comprehensive metabolic panel (10/08/2024 7:25 PM CDT) Sodium 141 135 - 145 mmol/L Comment:Testing performed by : [address] [address] Potassium, pl 4.3 3.3 - 4.9 mmol/L NEEL Comment: Hemolyzed; Potassium value may be falsely elevated by as much as 1.0 mmol/L. Suggest redraw and reanalysis. Testing performed by: [address] [address] Chloride 105 97 - 110 mmol/L NEEL Comment:Testing performed by : [address] [address] CO2 22 22 - 32 mmol/L NEEL Comment:Testing performed by : [address] [address] Anion gap 14 2 - 15 mmol/L NEEL Comment:Testing performed by : [address] [address] BUN 7 6 - 25 mg/dL NEEL Comment:Testing performed by : [address] [address] Creatinine 1.02 0.80 - 1.30 mg/dL NEEL Comment:Testing performed by : [address] [address] Glucose 104 70 - 199 mg/dL NEEL [...] was last revised 2022. Testing performed by: [address] [address] Calcium 10.1 8.5 - 10.3 mg/dL NEEL Comment:Testing performed by : [address] [address] Bilirubin, total 0.3 0.1 - 1.2 mg/dL NEEL Comment:Testing performed by : [address] [address] Protein, pl 7.7 6.5 - 8.5 g/dL NEEL Comment:Testing performed by : [address] [address] Albumin 4.8 3.5 - 5.0 g/dL NEEL Comment:Testing performed by : [address], [address] Alk phos 88 40 - 130 Units/L NEEL Comment:Testing performed by : [address] [address] ALT 24 7 - 55 Units/L NEEL Comment:Testing performed by : [address] [address] AST 25 10 - 50 Units/L NEEL Comment: Hemolyzed; result may be falsely elevated Testing performed by: [address] [address] Blood 10/08/2024 7:25 PM CDT 10/08/2024 7:29 PM CDT Lilliana LAWTON LAB BLOOD ORDERABLES Final Result [facility] [address] [facility] [place] [address] * CTA Chest Abdomen Pelvis (10/07/2024 6:41 [...] Melissa Phoenix M.D. SN T: Report ID: [id number] Reading Location: [id number] Procedure Note Melissa Phoenix MD - 10/07/2024 [...] Melissa Phoenix M.D. SN T: Report ID: [id number] Reading Location: [place] [address] Jose Francisco Harper DO IMG CT PROCEDURES [...] states this started about an hour ago [employer]. 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 SN T: Report ID: [id number] Reading Location: [id number] Procedure Note Melissa Phoenix MD - 10/07/2024 EXAM DESCRIPTION: XR CHEST 1 VIEW REASON FOR STUDY: Abd pain, unspecified C/o upper L quad abd pain. Pt states this started about an hour ago [employer].Pt states that he was recently hospitalized for [...] Melissa Phoenix M.D. SN T: Report ID: [id number] Reading Location: [place] [address] Jose Francisco Harper DO IMG XR PROCEDURES [...] 6:05 AM CDT 10/07/2024 6:07 AM CDT us Felton Ramiro Harper DO LAB BLOOD ORDERABLES Final Result Performing Organization Address City/[facility]/ZIP Co de Phone Number NEEL [address] [facility] [place] [address] * ECG 12 lead (10/07/2024 4:11 AM CDT) Ventricular Rate EKG/Min 65 BPM [facility] Atrial Rate 65 BPM [facility] [place]-Interval (MSEC) 108 ms [facility] QRS-Interval (MSEC) 102 ms [facility] QT-Interval (MSEC) 388 ms [facility] QTc 403 ms [facility] P [place] 30 degrees [facility] R [place] 56 degrees [facility] T [place] 58 degrees [facility] Diagnosis Sinus rhythm with short [place] Otherwise normal ECG When compared with ECG of 27-JUN-2024 09:54, No significant change was found Confirmed by ASHLIE BERMEO M.D. ([id number]) on 10/07/2024 11:47:08 PM [facility] 10/07/2024 4:11 AM CDT 10/07/2024 11:47 PM CDT Jose Francisco Ramiro Robhu ECG ORDERABLES Final Resul t Performing Organization Address [facility] Co de Phone Number [facility] * Urinalysis reflex to microscopic and culture Urine (10/07/2024 4:06 AM CDT) Color, ur Yellow Yellow Clarity, ur Clear Clear NEEL Specific gravity, ur 1.013 1.003 - 1.030 NEEL pH, urine 5.5 NEEL Comment: Interpretive Data U rine pH is affected by diet, medications, systemic acid-base disturbances, and renal tubular function. pH may affect urinary stone formation. For example, urine pH below 6.0 may help reduce the tendency for calcium phosphate stones and pH greater than 6.0 may reduce the tendency for uric acid stone formation. Source: [facility] Current Interpretive Data was last revised on 2017 Protein, ur ql Negative Negative [facility] Glucose, ur ql Negative Negative [facility] Ketones, ur Negative Negative [facility] Bilirubin, ur Negative Negative [facility] Blood, ur Negative Negative [facility] Urobilinogen, ur <2.0 <2.0 mg/dL [facility] Nitrite, ur Negative Negative [facility] Leukocyte esterase, ur Negative Negative [facility] UA reflex comment Reflex conditions for microscopic UA and culture not met. [facility] Urine 10/07/2024 4:06 AM CDT 10/07/2024 4:10 AM CDT us Jose Francisco Harper LAB MICROBIOLOGY - GENERAL ORDERABLES Final Result Performing Organization Address [facility] Co de Phone Number NEEL [address] [address] * Troponin T high-sensitivity series (baseline, 2hr, 4hr, 6hr) (10/07/2024 4:00 AM CDT) Pathologist [facility] Trop T hs <6 <=22 ng/L Comment: Interpretive Data For further hscTnT resources including the diagnostic algorithm and an aid in interpretation, copy and paste this link: [email or web address].testcatalog.org/[email or web address] Current Interpretive Data last revised 2020. Blood 10/07/2024 4:00 AM CDT 10/07/2024 4:02 AM CDT Jose Francisco Harper LAB BLOOD ORDERABLES Final Result Performing Organization Address [facility] Co de Phone Number [address] [address] * eGFR (10/07/2024 4:00 AM CDT) Pathologist [facility] eGFR 87 >=60 mL/min/1. 73 m2 Comment: [...] Harper DO LAB BLOOD ORDERABLES Final Result [facility] [address] [facility] Department [place] [address] * (ABNORMAL) Differential, auto (10/07/2024 4:00 AM CDT) Pathologist [facility] Neutrophil abs 5.81 1.50 - 6.50 K/cumm Imm gran abs 0.04 0.00 - 0.10 K/cumm [facility] Lymphocyte abs 3.73(H) 0.80 - 3.30 K/cumm [facility] Monocyte abs 1.14(H) 0.20 - 0.80 K/cumm [facility] Eosinophil abs 0.27 0.00 - 0.50 K/cumm [facility] Basophil abs 0.06 0.00 - 0.10 K/cumm [facility] Neutrophil pct 52.6 % [facility] Comment: Interpretive Data Percent cell count reference ranges are not reported, since discordance with absolute values may lead to misinterpretation of CBC data. Current Interpretive Data was last revised on 2017. Imm gran pct 0.4 % [facility] Comment: Interpretive Data Percent cell count reference ranges are not reported, since discordance with absolute values may lead to misinterpretation of CBC data. Current Interpretive Data was last revised on 2017. Lymphocyte pct 33.8 % [facility] Comment: Interpretive Data Percent cell count reference ranges are not reported, since discordance with absolute values may lead to misinterpretation of CBC data. Current Interpretive Data was last revised on 2017. Monocyte pct 10.3 % [facility] Comment: Interpretive Data Percent cell count reference ranges are not reported, since discordance with absolute values may lead to misinterpretation of CBC data. Current Interpretive Data was last revised on 2017. Eosinophil pct 2.4 % [facility] Comment: Interpretive Data Percent cell count reference ranges are not reported, since discordance with absolute values may lead to misinterpretation of CBC data. Current Interpretive Data was last revised on 2017. Basophil pct 0.5 % [facility] Comment: Interpretive Data Percent cell count reference ranges are not reported, since discordance with absolute values may lead to misinterpretation of CBC data. Current Interpretive Data was last revised on 2017. Blood 10/07/2024 4:00 AM CDT 10/07/2024 4:02 AM CDT Jose Francisco Harper DO LAB BLOOD ORDERABLES Final Result [facility] [address] [facility] Department [place] [address] * (ABNORMAL) CBC with auto differential (10/07/2024 4:00 AM CDT) WBC 11.05(H) 3.80 - 9.90 K/cumm Hgb 14.9 13.0 - 17.5 g/dL [facility] Hct 44.7 38.9 - 50.3 % [facility] Plt 281 150 - 400 K/cumm [facility] MPV 9.8 9.1 - 12.3 fL [facility] RBC 5.28 4.30 - 5.80 M/cumm [facility] MCV 84.7 81.3 - 96.4 fL [facility] MCH 28.2 27.1 - 33.3 pg [facility] MCHC 33.3 32.3 - 35.7 g/dL [facility] RDW CV 15.3(H) 11.1 - 14.9 % [facility] RDW SD 46.6 35.7 - 48.1 fL [facility] NRBC abs 0.00 0.00 - 0.01 K/cumm [facility] Blood Venous blood specimen / Unknown 10/07/2024 4:00 AM CDT 10/07/2024 4:02 AM CDT Jose Francisco Ramiro [facility] LAB BLOOD ORDERABLES Final Result Performing Organization Address [facility] de Phone Number [address] [place] [employer] [place] [address] * (ABNORMAL) Lipase (10/07/2024 4:00 AM CDT) [facility] Lipase 104(H) 10 - 99 Units/L Blood Venous blood specimen / Unknown 10/07/2024 4:00 AM CDT 10/07/2024 4:02 AM CDT Jose Francisco Ramiro [facility] LAB BLOOD ORDERABLES Final Result Performing Organization Address [facility] de Phone Number [address] [address] * Comprehensive metabolic panel (10/07/2024 4:00 AM CDT) [facility] Sodium 142 135 - 145 mmol/L Potassium, pl 4.1 3.3 - 4.9 mmol/L [facility] Chloride 107 97 - 110 mmol/L [facility] CO2 23 22 - 32 mmol/L [facility] Anion gap 12 2 - 15 mmol/L [facility] BUN 9 6 - 25 mg/dL [facility] Creatinine 1.08 0.80 - 1.30 mg/dL [facility] Glucose 90 70 - 199 mg/dL [facility] Comment: Interpretive Data Fasting glucose [...] 2022. Calcium 9.4 8.5 - 10.3 mg/dL [facility] Bilirubin, total 0.2 0.1 - 1.2 mg/dL [facility] Protein, pl 7.1 6.5 - 8.5 g/dL [facility] Albumin 4.4 3.5 - 5.0 g/dL [facility] Alk phos 81 40 - 130 Units/L [facility] ALT 23 7 - 55 Units/L [facility] AST 24 10 - 50 Units/L [facility] Blood 10/07/2024 4:00 AM CDT 10/07/2024 4:02 AM CDT Jose Francisco Harper DO LAB BLOOD ORDERABLES Final Result NEEL [facility] Department [place] [address] * eGFR (10/03/2024 7:08 AM CDT) eGFR [...] AM CDT 10/03/2024 7:22 AM CDT Fred Toth MD LAB BLOOD ORDERABLES Final Res ult Performing Organization Address [facility] Co de Phone Number NEEL [address] [place] [employer] [place] [address] * (ABNORMAL) CBC without differential (10/03/2024 7:08 AM CDT) WBC 13.42(H) 3.80 - 9.90 K/cumm Hgb 12.4(L) 13.0 - 17.5 g/dL [facility] Hct 37.9(L) 38.9 - 50.3 % [facility] Plt 226 150 - 400 K/cumm [facility] MPV 10.0 9.1 - 12.3 fL [facility] RBC 4.43 4.30 - 5.80 M/cumm [facility] MCV 85.6 81.3 - 96.4 fL [facility] MCH 28.0 27.1 - 33.3 pg [facility] MCHC 32.7 32.3 - 35.7 g/dL [facility] RDW CV 15.4(H) 11.1 - 14.9 % [facility] RDW SD 48.1 35.7 - 48.1 fL [facility] NRBC abs 0.00 0.00 - 0.01 K/cumm [facility] Blood 10/03/2024 7:08 AM CDT 10/03/2024 7:22 AM CDT us Fred Toth MD LAB BLOOD ORDERABLES Final Res ult Performing Organization Address City/[facility]/ZIP Co de Phone Number NEEL [address] [place] [address] * Lipase (10/03/2024 7:08 AM CDT) Pathologist [facility] Lipase 55 10 - 99 Units/L Blood 10/03/2024 7:08 AM CDT 10/03/2024 7:22 AM CDT Fred Toth MD LAB BLOOD ORDERABLES Final Res ult NEEL SMITH [address] [facility] [place] [address] * Basic metabolic panel (10/03/2024 7:08 AM CDT) Sodium 141 135 - 145 mmol/L Potassium, pl 4.4 3.3 - 4.9 mmol/L [facility] Chloride 107 97 - 110 mmol/L [facility] CO2 24 22 - 32 mmol/L [facility] Anion gap 10 2 - 15 mmol/L [facility] BUN 9 6 - 25 mg/dL [facility] Creatinine 0.96 0.80 - 1.30 mg/dL [facility] Glucose 100 70 - 199 mg/dL [facility] Comment: Interpretive Data Fasting glucose [...] 2022. Calcium 8.9 8.5 - 10.3 mg/dL [facility] Blood 10/03/2024 7:08 AM CDT 10/03/2024 7:22 AM CDT us Fred Toth MD LAB BLOOD ORDERABLES Final Res ult NEEL [address] [facility] ([place] [place] [address] * (ABNORMAL) Lipid panel (10/03/2024 1:54 AM [...] last revised on 2017. Testing performed by: [address] [address] Triglycerides 115 <=149 mg/dL NEEL Comment: Interpretive [...] last revised on 2017. Testing performed by: [address] [address] HDL 32(L) >=40 mg/dL NEEL Comment: Interpretive [...] last revised on 2017. Testing performed by: [address] [address] LDL, calculated 61 <=129 mg/dL NEEL Comment: [...] NCEP Expert Panel. Circulation 2004;110:227 3. Tremaine M et al. ALPA Cardiol. 2020 September 08;5(5):540-548. doi: 10.1001/jamacardio.2020.0013 Current Interpretive Data was last revised on 2023. Testing performed by: [address] [address] Non-HDL Cholesterol 82 mg/dL NEEL SMITH Comment: [...] last revised on 2017. Testing performed by: [address] [address] Chol/HDL ratio 4 NEEL SMITH Comment:Testing performed by : [address] [address] Blood 10/03/2024 1:54 AM CDT 10/03/2024 2:00 AM CDT us Fred Toht MD LAB BLOOD ORDERABLES Final Res ult NEEL SMITH [address] [facility] [place] [address] * CT Abdomen Pelvis W Contrast (10/03/2024 [...] Aryan Jovel M.D. AR: GIOVANNA Report ID: [id number] Reading Location: [id number] Procedure Note Aryan Jovel MD - 10/03/2024 [...] Aryan Jovel M.D. AR: GIOVANNA Report ID: [id number] Reading Location: [id number] Fred Toth MD [facility] [place]ED[place] Final Result * (ABNORMAL) Drugs of Abuse Screen, Urine with Reflex Confirmation (10/03/2024 12:51 AM CDT) [facility] Amphetamine, ur Not Detected CutOff 500ng/mL Comment: Interpretive Data - Amphetamines: Samples containing greater than 500 ng/mL d-methamphetamine or other cross-reacting amphetamine compounds are reported as positive. Amphetamine immunoassays are subject to significant false positive rates due to cross-reactivity of non-amphetamine drugs. Confirmatory testing required for definitive results. Current Interpretive Data was last reviewed 2022. Testing performed by: [address] [address] Barbiturates, ur Not Detected CutOff 200ng/mL [facility] Comment: Interpretive Data - Barbiturates: Samples containing greater than 200 ng/mL secobarbital or other cross-reacting barbiturate compounds are reported as positive. False positive and false negative results are possible. Confirmatory testing required for definitive results. Current Interpretive Data was last reviewed 2022. Testing performed by: [address] [address] Benzodiazepines, ur Not Detected CutOff 100ng/mL [facility] Comment: Interpretive Data - Benzodiazepines: Samples containing greater than 100 ng/mL nordiazepam or other cross-reacting compounds are reported as positive. False positive and false negative results are possible. Confirmatory testing required for definitive results. Current Interpretive Data was last reviewed 2022. Testing performed by: [address] [address] Cannabinoids, ur Screen Positive, presumptive (A) CutOff 50 ng/mL [facility] Comment: Interpretive Data - Cannabinoids: Samples containing greater than 50 ng/mL delta-9 THC -COOH or other cross- reacting compounds are reported as positive. False positive and false negative results are possible. Confirmatory testing required for definitive results. Current Interpretive Data was last reviewed 2022. Testing performed by: [address] [address] Cocaine, ur Not Detected CutOff 150ng/mL [facility] Comment: Interpretive Data - Cocaine: Samples containing greater than 150 ng/mL benzoylecgonine or other cross- reacting compounds are reported as positive. False positive and false negative results are possible. Confirmatory testing required for definitive results. Current Interpretive Data was last reviewed 2022. Testing performed by: [facility], [address] [place] [address]., [address] Fentanyl, Ur Not Detected CutOff 5 ng/mL [facility] Comment: Interpretive Data - Fentanyl: Samples containing greater than 1 ng/mL fentanyl or other cross-reacting fentanyl compounds are reported as positive. False positive and false negative results are possible. Confirmatory testing required for definitive results. Current Interpretive Data was last reviewed 2022. Testing performed by: [facility], [address] [place] [address]., [address] Methadone, ur Not Detected CutOff 300ng/mL [facility] Comment: Interpretive Data - Methadone: Samples containing greater than 300 ng/mL d,l-methadone or other cross-reacting compounds are reported as positive. False positive and false negative results are possible. Confirmatory testing required for definitive results. Current Interpretive Data was last reviewed 2022. Testing performed by: [address] [address] Opiates, ur Not Detected CutOff 300ng/mL [facility] Comment: Interpretive Data - Opiates: Samples containing greater than 300 ng/mL morphine or other cross-reacting compounds are reported as positive. False positive and false negative results are possible. Confirmatory testing required for definitive results. Current Interpretive Data was last reviewed 2022. Testing performed by: [address] [address] Oxycodone, ur Not Detected CutOff 100ng/mL [facility] Comment: Interpretive Data - Oxycodone: Samples containing greater than 100 ng/mL oxycodone or other cross-reacting compounds are reported as positive. False positive and false negative results are possible. Confirmatory testing required for definitive results. Current Interpretive Data was last reviewed 2022. Testing performed by: [address] [address] Phencyclidine, ur Not Detected CutOff 25 ng/mL [facility] Comment: Interpretive Data - Phencyclidine: Samples containing greater than 25 ng/mL phencyclidine or other cross-reacting compounds are reported as positive. False positive and false negative results are possible. Confirmatory testing required for definitive results. Current Interpretive Data was last reviewed 2022. Testing performed by: [address] [address] Urine Creatinine 102 mg/dL NEEL Comment: Interpretive Data Urine Creatinine: < 10 mg/dL is extremely dilute = or > 10 but < 20 mg/dL is dilute = or > 20 mg/dL is normal Current Interpretive Data was last revised on 2017. Testing performed by: [address] [address] Urine 10/03/2024 12:5 1 AM CDT 10/03/2024 [...] LAB URINE ORDERABLES Final Res ult NEEL [address] [facility] [place] [address] * Urinalysis reflex to microscopic and culture Urine (10/02/2024 10:09 PM CDT) Color, ur Yellow Yellow Comment:Testing performed by : [address] [address] Clarity, ur Clear Clear NEEL Comment:Testing performed by : [address] [address] Specific gravity, ur 1.011 1.003 - 1.030 NEEL Comment:Testing performed by : [address] [address] pH, urine 6.0 NEEL Comment: Interpretive Data U rine pH is affected by diet, medications, systemic acid-base disturbances, and renal tubular function. pH may affect urinary stone formation. For example, urine pH below 6.0 may help reduce the tendency for calcium phosphate stones and pH greater than 6.0 may reduce the tendency for uric acid stone formation. Source: [facility] Current Interpretive Data was last revised on 2017 Testing performed by: [facility], [address] [place] [address], [place]., [address] Protein, ur ql Negative Negative NEEL Comment:Testing performed by : [address], [place]., [address] Glucose, ur ql Negative Negative NEEL Comment:Testing performed by : [address], [place]., [address] Ketones, ur Negative Negative NEEL Comment:Testing performed by : [address], [place]., [address] Bilirubin, ur Negative Negative NEEL Comment:Testing performed by : [address], [place]., [address] Blood, ur Negative Negative NEEL Comment:Testing performed by : [address], [place]., [address] Urobilinogen, ur <2.0 <2.0 mg/dL NEEL Comment:Testing performed by : [address], [place]., [address] Nitrite, ur Negative Negative NEEL Comment:Testing performed by : [address] [address] Leukocyte esterase, ur Negative Negative NEEL Comment:Testing performed by : [address], [place]., [address] UA reflex comment Reflex conditions for microscopic UA and culture not met. NEEL Comment:Testing performed by : [address] [address] Urine 10/02/2024 10:0 9 PM CDT 10/02/2024 10:11 PM CDT us María Elena Calvo MD LAB MICROBIOLOGY - GENERA L ORDERABLES Final Result NEEL SMITH [address] [facility] Department [place] [address] * eGFR (10/02/2024 9:51 PM CDT) Pathologist [facility] eGFR 87 >=60 mL/min/1. 73 m2 Comment: [...] was last reviewed 2021. Testing performed by: [address] [address] Blood 10/02/2024 9:51 PM CDT 10/02/2024 9:57 PM CDT us María Elena Calvo MD LAB BLOOD ORDERABLES Renee antunez Result NEEL [address] [facility] Department [place] [address] * (ABNORMAL) Differential, auto (10/02/2024 9:51 PM CDT) Pathologist [facility] Neutrophil abs 12.91(H) 1.50 - 6.50 K/cumm Comment:Testing performed by : [address] [address] Imm gran abs 0.10 0.00 - 0.10 K/cumm NEEL Comment:Testing performed by : [address] [address] Lymphocyte abs 1.91 0.80 - 3.30 K/cumm NEEL Comment:Testing performed by : [address] [address] Monocyte abs 1.44(H) 0.20 - 0.80 K/cumm [facility] Comment:Testing performed by : [address] [address] Eosinophil abs 0.14 0.00 - 0.50 K/cumm [facility] Comment:Testing performed by : [address] [address] Basophil abs 0.07 0.00 - 0.10 K/cumm [facility] Comment:Testing performed by : [address] [address] Neutrophil pct 78.0 % [facility] Comment: Interpretive Data Percent cell count reference ranges are not reported, since discordance with absolute values may lead to misinterpretation of CBC data. Current Interpretive Data was last revised on 2017. Testing performed by: [address] [address] Imm gran pct 0.6 % [facility] Comment: Interpretive Data Percent cell count reference ranges are not reported, since discordance with absolute values may lead to misinterpretation of CBC data. Current Interpretive Data was last revised on 2017. Testing performed by: [address] [address] Lymphocyte pct 11.5 % [facility] Comment: Interpretive Data Percent cell count reference ranges are not reported, since discordance with absolute values may lead to misinterpretation of CBC data. Current Interpretive Data was last revised on 2017. Testing performed by: [address] [address] Monocyte pct 8.7 % [facility] Comment: Interpretive Data Percent cell count reference ranges are not reported, since discordance with absolute values may lead to misinterpretation of CBC data. Current Interpretive Data was last revised on 2017. Testing performed by: [address] [address] Eosinophil pct 0.8 % [facility] Comment: Interpretive Data Percent cell count reference ranges are not reported, since discordance with absolute values may lead to misinterpretation of CBC data. Current Interpretive Data was last revised on 2017. Testing performed by: [address] [address] Basophil pct 0.4 % NEEL Comment: Interpretive Data Percent cell count reference ranges are not reported, since discordance with absolute values may lead to misinterpretation of CBC data. Current Interpretive Data was last revised on 2017. Testing performed by: [address] [address] Blood 10/02/2024 9:51 PM CDT 10/02/2024 9:57 PM CDT us María Elena Calvo MD LAB BLOOD ORDERABLES Renee antunez Result NEEL [address] [facility] [place] [address] * (ABNORMAL) CBC with auto differential (10/02/2024 9:51 PM CDT) WBC 16.57(H) 3.80 - 9.90 K/cumm Comment:Testing performed by : [address] [address] Hgb 13.9 13.0 - 17.5 g/dL NEEL SMITH Comment:Testing performed by : [address] [address] Hct 41.0 38.9 - 50.3 % NEEL SMITH Comment:Testing performed by : [address] [address] Plt 281 150 - 400 K/cumm NEEL Comment:Testing performed by : [address] [address] MPV 9.9 9.1 - 12.3 fL NEEL SMITH Comment:Testing performed by : [address] [address] RBC 4.94 4.30 - 5.80 M/cumm NEEL SMITH Comment:Testing performed by : [address] [address] MCV 83.0 81.3 - 96.4 fL NEEL SMITH Comment:Testing performed by : [address] [place] [address] MCH 28.1 27.1 - 33.3 pg NEEL SMITH Comment:Testing performed by : [address] [address] MCHC 33.9 32.3 - 35.7 g/dL NEEL SMITH Comment:Testing performed by : [address] [address] RDW CV 15.4(H) 11.1 - 14.9 % NEEL SMITH Comment:Testing performed by : [address], [address] RDW SD 46.5 35.7 - 48.1 fL NEEL SMITH Comment:Testing performed by : [address], [address] NRBC abs 0.00 0.00 - 0.01 K/cumm NEEL SMITH Comment:Testing performed by : [address], [address] Blood Venous blood specimen / Unknown 10/02/2024 9:51 PM CDT 10/02/2024 9:57 PM CDT María Elena Calvo MD LAB BLOOD ORDERABLES Renee l Result Performing Organization Address City/[facility] Co de Phone Number [address] [employer] [place] [address] * (ABNORMAL) Lipase (10/02/2024 9:51 PM CDT) Lipase 444(H) 10 - 99 Units/L Comment:Testing performed by : [address], [address] Blood Venous blood specimen / Unknown 10/02/2024 9:51 PM CDT 10/02/2024 9:57 PM CDT María Elena Calvo MD LAB BLOOD ORDERABLES Renee l Result Performing Organization Address City/[facility]/ZIP Co de Phone Number [address] [facility] [place] [address] * Comprehensive metabolic panel (10/02/2024 9:51 PM CDT) Sodium 143 135 - 145 mmol/L Comment:Testing performed by : [address] [address] Potassium, pl 3.9 3.3 - 4.9 mmol/L NEEL Comment:Testing performed by : [address] [address] Chloride 107 97 - 110 mmol/L NEEL Comment:Testing performed by : [address] [address] CO2 22 22 - 32 mmol/L NEEL Comment:Testing performed by : [address] [address] Anion gap 14 2 - 15 mmol/L NEEL Comment:Testing performed by : [address] [address] BUN 7 6 - 25 mg/dL NEEL Comment:Testing performed by : [address] [address] Creatinine 1.08 0.80 - 1.30 mg/dL NEEL Comment:Testing performed by : [address] [address] Glucose 129 70 - 199 mg/dL [facility] Comment: Interpretive Data Fasting glucose [...] was last revised 2022. Testing performed by: [address] [address] Calcium 10.0 8.5 - 10.3 mg/dL NEEL Comment:Testing performed by : [address] [address] Bilirubin, total 0.3 0.1 - 1.2 mg/dL NEEL Comment:Testing performed by : [address] [address] Protein, pl 7.2 6.5 - 8.5 g/dL NEEL Comment:Testing performed by : [address] [address] Albumin 4.5 3.5 - 5.0 g/dL NEEL Comment:Testing performed by : [address], [address] Alk phos 84 40 - 130 Units/L NEEL Comment:Testing performed by : [address], [address] ALT 28 7 - 55 Units/L NEEL Comment:Testing performed by : [address], [address] AST 37 10 - 50 Units/L NEEL Comment:Testing performed by : [address] [address] Blood 10/02/2024 9:51 PM CDT 10/02/2024 9:57 PM CDT María Elena Calvo MD LAB BLOOD ORDERABLES Renee antunez Result NEEL [address] [facility] [place] [address] * CT Abdomen Pelvis W Contrast (09/30/2024 [...] Esa Cao M.D. AG: GONZALES Report ID: [id number] Reading Location: [id number] Procedure Note Esa Cao MD - 09/30/2024 [...] Esa Cao M.D. AG: GONZALES Report ID: [id number] Reading Location: [place] [address] PROCEDURES Final Result * (ABNORMAL) Urinalysis reflex to microscopic and culture Urine (09/30/2024 5:55 PM CDT) Color, ur Yellow Yellow Comment:Testing performed by : [address] [address] Clarity, ur Clear Clear NEEL Comment:Testing performed by : [address] [address] Specific gravity, ur 1.035(H) 1.003 - 1.030 NEEL Comment:Testing performed by : [address] [address] pH, urine 6.0 NEEL Comment: Interpretive Data U rine pH is affected by diet, medications, systemic acid-base disturbances, and renal tubular function. pH may affect urinary stone formation. For example, urine pH below 6.0 may help reduce the tendency for calcium phosphate stones and pH greater than 6.0 may reduce the tendency for uric acid stone formation. Source: [employer] Current Interpretive Data was last revised on 2017 Testing performed by: [address] [address] Protein, ur ql 1+(A) Negative NEEL Comment:Testing performed by : [address] [address] Glucose, ur ql Negative Negative NEEL Comment:Testing performed by : [address] [address] Ketones, ur 1+(A) Negative NEEL Comment:Testing performed by : [address] [address] Bilirubin, ur Negative Negative NEEL Comment:Testing performed by : [address], [place]., [address] Blood, ur Negative Negative NEEL Comment:Testing performed by : [address], [place]., [address] Urobilinogen, ur 2.0(A) <2.0 mg/dL NEEL SMITH Comment:Testing performed by : [address], [place]., [address] Nitrite, ur Negative Negative NEEL Comment:Testing performed by : [address], [place]., [address] Leukocyte esterase, ur Negative Negative NEEL Comment:Testing performed by : [address], [place]., [address] UA reflex comment Reflex to microscopic UA will be performed. NEEL Comment:Testing performed by : [address], [place]., [address] Urine 09/30/2024 5:55 PM CDT 09/30/2024 5:57 PM CDT Radha Casas DO LAB MICROBIOLOGY - GENERAL ORDE SAMEER Final Result NEEL [address] [facility] Department of Laboratories [place], [place] [id number] * (ABNORMAL) Urinalysis, microscopic only (09/30/2024 5:55 PM CDT) WBC, ur 6-10(A) 0 - 5 /HPF Comment:Testing performed by : [address], [place]., [address] RBC, ur 3-5(A) 0 - 2 /HPF NEEL SMITH Comment:Testing performed by : [address], [place]., [address] Epithelial cells, squamous, ur 6-10(A) 0 - 5 /HPF NEEL SMITH Comment:Testing performed by : [address], [place]., [address] Mucous, ur Present(A) CERNER MH Comment:Testing performed by : [facility], [address] [place] [address]., [address] Culture Reflex Comment Reflex conditions for urine culture (WBC >10) not met. NEEL SMITH Comment:Testing performed by : [facility], [address] [place] [address]., [address] Urine 09/30/2024 5:55 PM CDT 09/30/2024 5:57 PM CDT Radha Casas DO LAB URINE ORDERABLES Final Resu lt Performing Organization Address [facility] de Phone Number NEEL SMITH [address] [facility] Department [place] [address] * eGFR (09/30/2024 4:01 PM [...] was last reviewed 2021. Testing performed by: [address] [address] Blood 09/30/2024 4:01 PM CDT 09/30/2024 4:06 PM CDT Radha Casas DO LAB BLOOD ORDERABLES Final Resu lt Performing Organization Address [facility] Co de Phone Number NEEL [address] [facility] Department [place] [address] * Differential, auto (09/30/2024 4:01 PM CDT) Neutrophil abs 5.11 1.50 - 6.50 K/cumm Comment:Testing performed by : [address] [address] Imm gran abs 0.04 0.00 - 0.10 K/cumm NEEL Comment:Testing performed by : [address] [address] Lymphocyte abs 1.62 0.80 - 3.30 K/cumm NEEL Comment:Testing performed by : [address] [address] Monocyte abs 0.77 0.20 - 0.80 K/cumm NEEL Comment:Testing performed by : [address] [address] Eosinophil abs 0.18 0.00 - 0.50 K/cumm NEEL Comment:Testing performed by : [address] [address] Basophil abs 0.05 0.00 - 0.10 K/cumm NEEL Comment:Testing performed by : [address] [address] Neutrophil pct 65.9 % NEEL Comment: Interpretive Data Percent cell count reference ranges are not reported, since discordance with absolute values may lead to misinterpretation of CBC data. Current Interpretive Data was last revised on 2017. Testing performed by: [address] [address] Imm gran pct 0.5 % NEEL Comment: Interpretive Data Percent cell count reference ranges are not reported, since discordance with absolute values may lead to misinterpretation of CBC data. Current Interpretive Data was last revised on 2017. Testing performed by: [address] [address] Lymphocyte pct 20.8 % NEEL Comment: Interpretive Data Percent cell count reference ranges are not reported, since discordance with absolute values may lead to misinterpretation of CBC data. Current Interpretive Data was last revised on 2017. Testing performed by: [address] [address] Monocyte pct 9.9 % NEEL Comment: Interpretive Data Percent cell count reference ranges are not reported, since discordance with absolute values may lead to misinterpretation of CBC data. Current Interpretive Data was last revised on 2017. Testing performed by: [address] [address] Eosinophil pct 2.3 % ENEL Comment: Interpretive Data Percent cell count reference ranges are not reported, since discordance with absolute values may lead to misinterpretation of CBC data. Current Interpretive Data was last revised on 2017. Testing performed by: [address] [address] Basophil pct 0.6 % NEEL Comment: Interpretive Data Percent cell count reference ranges are not reported, since discordance with absolute values may lead to misinterpretation of CBC data. Current Interpretive Data was last revised on 2017. Testing performed by: [address] [address] Blood 09/30/2024 4:01 PM CDT 09/30/2024 4:06 PM CDT us Radha Casas DO LAB BLOOD ORDERABLES Final Resu lt [facility] [address] [facility] Department [place] [address] * (ABNORMAL) CBC with auto differential (09/30/2024 4:01 PM CDT) WBC 7.77 3.80 - 9.90 K/cumm Comment:Testing performed by : [address] [address] Hgb 14.5 13.0 - 17.5 g/dL NEEL Comment:Testing performed by : [address] [address] Hct 43.0 38.9 - 50.3 % NEEL SMITH Comment:Testing performed by : [address] [address] Plt 278 150 - 400 K/cumm NEEL SMITH Comment:Testing performed by : [address] [address] MPV 9.8 9.1 - 12.3 fL NEEL SMITH Comment:Testing performed by : [address] [address] RBC 5.18 4.30 - 5.80 M/cumm NEEL Comment:Testing performed by : [address] [address] MCV 83.0 81.3 - 96.4 fL NEEL Comment:Testing performed by : [address] [address] MCH 28.0 27.1 - 33.3 pg NEEL Comment:Testing performed by : [address] [address] MCHC 33.7 32.3 - 35.7 g/dL NEEL Comment:Testing performed by : [address] [address] RDW CV 15.3(H) 11.1 - 14.9 % NEEL Comment:Testing performed by : [address] [address] RDW SD 46.4 35.7 - 48.1 fL NEEL Comment:Testing performed by : [address] [address] NRBC abs 0.00 0.00 - 0.01 K/cumm NEEL Comment:Testing performed by : [address] [address] Blood Venous blood specimen / Unknown 09/30/2024 4:01 PM CDT 09/30/2024 4:06 PM CDT us Radha Casas DO LAB BLOOD ORDERABLES Final Resu lt NEEL [address] [facility] Department [place] [address] * Lipase (09/30/2024 4:01 PM CDT) Pathologist [facility] Lipase 51 10 - 99 Units/L Comment:Testing performed by : [address] [address] Blood Venous blood specimen / Unknown 09/30/2024 4:01 PM CDT 09/30/2024 4:06 PM CDT Radha Casas DO LAB BLOOD ORDERABLES Final Resu lt [facility] [address] [facility] [place] [address] * Comprehensive metabolic panel (09/30/2024 4:01 PM CDT) Pathologist [facility] Sodium 141 135 - 145 mmol/L Comment:Testing performed by : [address] [address] Potassium, pl 4.0 3.3 - 4.9 mmol/L NEEL Comment:Testing performed by : [address] [address] Chloride 106 97 - 110 mmol/L NEEL Comment:Testing performed by : [address] [address] CO2 24 22 - 32 mmol/L NEEL Comment:Testing performed by : [address] [address] Anion gap 11 2 - 15 mmol/L NEEL Comment:Testing performed by : [address] [address] BUN 9 6 - 25 mg/dL NEEL Comment:Testing performed by : [address] [address] Creatinine 1.00 0.80 - 1.30 mg/dL NEEL Comment:Testing performed by : [address] [address] Glucose 107 70 - 199 mg/dL NEEL [...] was last revised 2022. Testing performed by: [address] [address] Calcium 9.6 8.5 - 10.3 mg/dL NEEL Comment:Testing performed by : [address] [address] Bilirubin, total 0.4 0.1 - 1.2 mg/dL NEEL Comment:Testing performed by : [address] [address] Protein, pl 7.1 6.5 - 8.5 g/dL NEEL Comment:Testing performed by : [address] [address] Albumin 4.3 3.5 - 5.0 g/dL NEEL Comment:Testing performed by : [address] [address] Alk phos 87 40 - 130 Units/L NEEL Comment:Testing performed by : [address] [address] ALT 25 7 - 55 Units/L NEEL Comment:Testing performed by : [address] [address] AST 25 10 - 50 Units/L NEEL Comment:Testing performed by : [address] [address] Blood 09/30/2024 4:01 PM CDT 09/30/2024 4:06 PM CDT us Radha Casas DO LAB BLOOD ORDERABLES Final Resu lt NEEL [address] [facility] Department of Laboratories [place], [place] [phone] * CT Abdomen Pelvis W Contrast (08/16/2024 4:01 AM CDT) Anatomical Region Laterality Modality Body N/A Computed Tomogra phy 08/16/2024 8:08 AM CDT Impressions 08/16/2024 8:36 AM CDT Markedly distended stomach with ingested contents without evidence of obstructing lesion. Preliminary results were given by the tele-radiologist long term care social worker Dr. Olivera Dictated by: Mario Newsome MD [...] Preliminary results were given by the tele-radiologist long term care social worker Dr. Olivera Dictated by: Mario Newsome MD [...] MD LAB BLOOD ORDERABLES Final Result NEEL [facility] [address] [facility]. Department [place] [address] * (ABNORMAL) Differential, auto (08/16/2024 3:42 AM [...] K/cumm CERNER [facility] Neutrophil pct 79.8 % NEEL GUZMÁN Comment: Interpretive Data Percent cell count reference ranges are not reported, since discordance with absolute values may lead to misinterpretation of CBC data. Current Interpretive Data was last revised on 2017. Imm gran pct 0.5 % NEEL GUZMÁN Comment: Interpretive Data Percent cell count reference ranges are not reported, since discordance with absolute values may lead to misinterpretation of CBC data. Current Interpretive Data was last revised on 2017. Lymphocyte pct 10.4 % NEEL GUZMÁN Comment: Interpretive Data Percent cell count reference ranges are not reported, since discordance with absolute values may lead to misinterpretation of CBC data. Current Interpretive Data was last revised on 2017. Monocyte pct 7.9 % NEEL GUZMÁN Comment: Interpretive Data Percent cell count reference ranges are not reported, since discordance with absolute values may lead to misinterpretation of CBC data. Current Interpretive Data was last revised on 2017. Eosinophil pct 0.9 % [facility] Comment: Interpretive Data Percent cell count reference ranges are not reported, since discordance with absolute values may lead to misinterpretation of CBC data. Current Interpretive Data was last revised on 2017. Basophil pct 0.5 % [facility] Comment: Interpretive Data Percent cell count reference ranges are not reported, since discordance with absolute values may lead to misinterpretation of CBC data. Current Interpretive Data was last revised on 2017. Blood 08/16/2024 3:42 AM CDT 08/16/2024 4:15 AM CDT us Ashlie Burgess MD LAB BLOOD ORDERABLES Final Result NEEL RE[place] [address] [facility]. [place] [address] * (ABNORMAL) CBC with auto differential (08/16/2024 3:42 AM CDT) WBC 18.64(H) 3.80 - 9.90 K/cumm Hgb 14.6 13.0 - 17.5 g/dL [facility] Hct 43.6 38.9 - 50.3 % [facility] Plt 325 150 - 400 K/cumm [facility] MPV 10.0 9.1 - 12.3 fL [facility] RBC 5.23 4.30 - 5.80 M/cumm [facility] MCV 83.4 81.3 - 96.4 fL [facility] MCH 27.9 27.1 - 33.3 pg [facility] MCHC 33.5 32.3 - 35.7 g/dL [facility] RDW CV 15.9(H) 11.1 - 14.9 % [facility] RDW SD 48.6(H) 35.7 - 48.1 fL [facility] NRBC abs 0.00 0.00 - 0.01 K/cumm [facility] Blood Venous blood specimen / Unknown 08/16/2024 3:42 AM CDT 08/16/2024 4:15 AM CDT Ashlie Burgess MD LAB BLOOD ORDERABLES Final Result Performing Organization Address [facility] Co de Phone Number NEEL GUZMÁN [address] [facility] [place] [place] [address] * Lipase (08/16/2024 3:42 AM CDT) Pathologist [facility] Lipase 32 10 - 99 Units/L Blood Venous blood specimen / Unknown 08/16/2024 3:42 AM CDT 08/16/2024 4:15 AM CDT Ashlie Burgess MD LAB BLOOD ORDERABLES Final Result Performing Organization Address [facility] Phone Number NEEL GUZMÁN [address] [facility] [place] [address] * Comprehensive metabolic panel (08/16/2024 3:42 AM CDT) Pathologist [facility] Sodium 139 135 - 145 mmol/L Potassium, pl 4.1 3.3 - 4.9 mmol/L [facility] Chloride 100 97 - 110 mmol/L [facility] CO2 24 22 - 32 mmol/L [facility] Anion gap 15 2 - 15 mmol/L [facility] BUN 10 6 - 25 mg/dL [facility] Creatinine 0.97 0.80 - 1.30 mg/dL [facility] Glucose 116 70 - 199 mg/dL [facility] Comment: Interpretive Data Fasting glucose [...] MD LAB BLOOD ORDERABLES Final Result NEEL [facility] [address] [facility]. Department [place] [address] * Sepsis Lactate w/ Reflex (08/13/2024 5:52 PM CDT) Pathologist [facility] Sepsis Lactate 1.1 0.7 - 2.0 mmol/L Blood 08/13/2024 5:52 PM CDT 08/13/2024 5:58 PM CDT us Crista Bower MD LAB BLOOD ORDERABLES Final Result Performing Organization Address City/[facility]/ZIP Co de Phone Number NEEL [facility] [address] [place] [employer] [place] [address] * eGFR (08/13/2024 4:29 PM CDT) Pathologist [facility] eGFR >90 >=60 mL/min/1. 73 m2 Comment: [...] MD LAB BLOOD ORDERABLES Final Result [facility] [address] Department [place] [address] * (ABNORMAL) Differential, auto (08/13/2024 4:29 PM CDT) Neutrophil abs 15.65(H) 1.50 - 6.50 K/cumm Imm gran abs 0.09 0.00 - 0.10 K/cumm [facility] Lymphocyte abs 1.38 0.80 - 3.30 K/cumm [facility] Monocyte abs 1.33(H) 0.20 - 0.80 K/cumm [facility] Eosinophil abs 0.09 0.00 - 0.50 K/cumm [facility] Basophil abs 0.05 0.00 - 0.10 K/cumm [facility] Neutrophil pct 84.1 % [facility] Comment: Interpretive Data Percent cell count reference ranges are not reported, since discordance with absolute values may lead to misinterpretation of CBC data. Current Interpretive Data was last revised on 2017. Imm gran pct 0.5 % [facility] Comment: Interpretive Data Percent cell count reference ranges are not reported, since discordance with absolute values may lead to misinterpretation of CBC data. Current Interpretive Data was last revised on 2017. Lymphocyte pct 7.4 % [facility] Comment: Interpretive Data Percent cell count reference ranges are not reported, since discordance with absolute values may lead to misinterpretation of CBC data. Current Interpretive Data was last revised on 2017. Monocyte pct 7.2 % [facility] Comment: Interpretive Data Percent cell count reference ranges are not reported, since discordance with absolute values may lead to misinterpretation of CBC data. Current Interpretive Data was last revised on 2017. Eosinophil pct 0.5 % [facility] Comment: Interpretive Data Percent cell count reference ranges are not reported, since discordance with absolute values may lead to misinterpretation of CBC data. Current Interpretive Data was last revised on 2017. Basophil pct 0.3 % [facility] Comment: Interpretive Data Percent cell count reference ranges are not reported, since discordance with absolute values may lead to misinterpretation of CBC data. Current Interpretive Data was last revised on 2017. Blood 08/13/2024 4:29 PM CDT 08/13/2024 4:38 PM CDT us Crista Bower MD LAB BLOOD ORDERABLES Final Result [facility] [address] Department [place] [address] * (ABNORMAL) CBC with auto differential (08/13/2024 4:29 PM CDT) WBC 18.59(H) 3.80 - 9.90 K/cumm Hgb 14.6 13.0 - 17.5 g/dL [facility] Hct 43.7 38.9 - 50.3 % [facility] Plt 335 150 - 400 K/cumm [facility] MPV 10.0 9.1 - 12.[address] [facility] RBC 5.15 4.30 - 5.80 M/cumm [facility] MCV 84.9 81.3 - 96.[address] [facility] MCH 28.3 27.1 - 33.[address] [facility] MCHC 33.4 32.3 - 35.7 g/dL [facility] RDW CV 15.9(H) 11.1 - 14.9 % [facility] RDW SD 49.5(H) 35.7 - 48.[address] [facility] NRBC abs 0.00 0.00 - 0.01 K/cumm [facility] Blood Venous blood specimen / Unknown 08/13/2024 4:29 PM CDT 08/13/2024 4:38 PM CDT Crista Bower MD LAB BLOOD ORDERABLES Final Result Performing Organization Address City/[facility]/ZIP Co de Phone Number [facility] [address] [place] [place] [address] * Lipase (08/13/2024 4:29 PM CDT) Pathologist [facility] Lipase 20 10 - 99 Units/L Blood Venous blood specimen / Unknown 08/13/2024 4:29 PM CDT 08/13/2024 4:38 PM CDT Crista Bower MD LAB BLOOD ORDERABLES Final Result Performing Organization Address [facility] Co de Phone Number [facility] [address] [place] [place] [address] * (ABNORMAL) Comprehensive metabolic panel (08/13/2024 4:29 PM CDT) Pathologist [facility] Sodium 138 135 - 145 mmol/L Potassium, pl 4.0 3.3 - 4.9 mmol/L [facility] Chloride 104 97 - 110 mmol/L [facility] CO2 21(L) 22 - 32 mmol/L [facility] Anion gap 13 2 - 15 mmol/L [facility] BUN 8 6 - 25 mg/dL [facility] Creatinine 0.91 0.80 - 1.30 mg/dL [facility] Glucose 118 70 - 199 mg/dL [facility] Comment: Interpretive Data Fasting [...] Calcium 9.3 8.5 - 10.3 mg/dL [facility] Bilirubin, total 0.4 0.1 - 1.2 mg/dL [facility] Protein, pl 7.2 6.5 - 8.5 g/dL [facility] Albumin 4.1 3.5 - 5.0 g/dL [facility] Alk phos 86 40 - 130 Units/L [facility] ALT 25 7 - 55 Units/L [facility] AST 22 10 - 50 Units/L [facility] Blood 08/13/2024 4:29 PM CDT 08/13/2024 4:38 PM CDT us Crista Bower MD LAB BLOOD ORDERABLES Final Result [facility] [address] Department [place] [address] * eGFR (08/12/2024 10:58 AM CDT) eGFR [...] ORDERABLES Final R esult Performing Organization Address City/[facility]/ZIP Co de Phone Number [facility] [address] [employer] [place] [address] * (ABNORMAL) CBC without differential (08/12/2024 10:58 AM CDT) WBC 7.15 3.80 - 9.90 K/cumm Hgb 13.4 13.0 - 17.5 g/dL [facility] Hct 41.3 38.9 - 50.3 % [facility] Plt 301 150 - 400 K/cumm [facility] MPV 10.1 9.1 - 12.[address] [facility] RBC 4.81 4.30 - 5.80 M/cumm [facility] MCV 85.9 81.3 - 96.[address] [facility] MCH 27.9 27.1 - 33.[address] [facility] MCHC 32.4 32.3 - 35.7 g/dL [facility] RDW CV 16.1(H) 11.1 - 14.9 % [facility] RDW SD 50.2(H) 35.7 - 48.[address] [facility] NRBC abs 0.00 0.00 - 0.01 K/cumm [facility] Blood 08/12/2024 10:5 8 AM CDT 08/12/2024 11:33 AM CDT us Reinaldo Avitia MD LAB BLOOD ORDERABLES Final [facility]ult [facility] [address] [employer] [place], [place] [id number] * (ABNORMAL) Basic metabolic panel (08/12/2024 10:58 AM CDT) Sodium 139 135 - 145 mmol/L Potassium, pl 4.3 3.3 - 4.9 mmol/L [facility] Chloride 105 97 - 110 mmol/L [facility] CO2 21(L) 22 - 32 mmol/L [facility] Anion gap 13 2 - 15 mmol/L [facility] BUN 6 6 - 25 mg/dL [facility] Creatinine 0.92 0.80 - 1.30 mg/dL [facility] Glucose 130 70 - 199 mg/dL [facility] Comment: Interpretive Data Fasting [...] Calcium 8.7 8.5 - 10.3 mg/dL [facility] Blood 08/12/2024 10:5 8 AM CDT 08/12/2024 11:33 AM CDT us Reinaldo Avitia MD LAB BLOOD ORDERABLES Final R esult [facility] [address] Department [place] [address] * EGD (08/11/2024 3:25 PM CDT) Anatomical Region Laterality Modality Other Narrative Procedure Note Georges Luna MD - 08/11/2024 3:25 PM CDT ENDOSCOPY LAB Patient Name: Donovan Bailey Procedure Date: 08/11/2024 3:25 PM Admit Type: Inpatient Room: [facility] Date of : 1980 Instrument Name: [id number] Gender: Male Note Status: Finalized Procedure: Upper [...] DO LAB BLOOD ORDERABLES F inal Result NEEL [facility] [address] Department [place] [address] * (ABNORMAL) Differential, auto (08/11/2024 6:15 AM CDT) Neutrophil abs 2.30 1.50 - 6.50 K/cumm Imm gran abs 0.01 0.00 - 0.10 K/cumm [facility] Lymphocyte abs 3.06 0.80 - 3.30 K/cumm [facility] Monocyte abs 0.99(H) 0.20 - 0.80 K/cumm [facility] Eosinophil abs 0.24 0.00 - 0.50 K/cumm [facility] Basophil abs 0.06 0.00 - 0.10 K/cumm [facility] Neutrophil pct 34.5 % [facility] Comment: Interpretive Data Percent cell count reference ranges are not reported, since discordance with absolute values may lead to misinterpretation of CBC data. Current Interpretive Data was last revised on 2017. Imm gran pct 0.2 % [facility] Comment: Interpretive Data Percent cell count reference ranges are not reported, since discordance with absolute values may lead to misinterpretation of CBC data. Current Interpretive Data was last revised on 2017. Lymphocyte pct 45.9 % [facility] Comment: Interpretive Data Percent cell count reference ranges are not reported, since discordance with absolute values may lead to misinterpretation of CBC data. Current Interpretive Data was last revised on 2017. Monocyte pct 14.9 % [facility] Comment: Interpretive Data Percent cell count reference ranges are not reported, since discordance with absolute values may lead to misinterpretation of CBC data. Current Interpretive Data was last revised on 2017. Eosinophil pct 3.6 % [facility] Comment: Interpretive Data Percent cell count reference ranges are not reported, since discordance with absolute values may lead to misinterpretation of CBC data. Current Interpretive Data was last revised on 2017. Basophil pct 0.9 % [facility] Comment: Interpretive Data Percent cell count reference ranges are not reported, since discordance with absolute values may lead to misinterpretation of CBC data. Current Interpretive Data was last revised on 2017. Blood 08/11/2024 6:15 AM CDT 08/11/2024 6:54 AM CDT us Chris Villatoro DO LAB BLOOD ORDERABLES F inal Result [facility] [address] [place] [employer] [place] [address] * (ABNORMAL) CBC with auto differential (08/11/2024 6:15 AM CDT) [facility] WBC 6.66 3.80 - 9.90 K/cumm Hgb 12.2(L) 13.0 - 17.5 g/dL [facility] Hct 37.8(L) 38.9 - 50.3 % [facility] Plt 274 150 - 400 K/cumm [facility] MPV 10.2 9.1 - 12.[address] [facility] RBC 4.38 4.30 - 5.80 M/cumm [facility] MCV 86.3 81.3 - 96.[address] [facility] MCH 27.9 27.1 - 33.[address] [facility] MCHC 32.3 32.3 - 35.7 g/dL [facility] RDW CV 16.3(H) 11.1 - 14.9 % [facility] RDW SD 51.3(H) 35.7 - 48.[address] [facility] NRBC abs 0.00 0.00 - 0.01 K/cumm [facility] Blood 08/11/2024 6:15 AM CDT 08/11/2024 6:54 AM CDT Chris Villatoro DO LAB BLOOD ORDERABLES F inal Result Performing Organization Address [facility] Co de Phone Number [facility] [address] [place] [place] [address] * Magnesium (08/11/2024 6:15 AM CDT) [facility] Magnesium 2.2 1.4 - 2.5 mg/dL Blood 08/11/2024 6:15 AM CDT 08/11/2024 6:53 AM CDT Chris Villatoro LAB BLOOD ORDERABLES F inal Result Performing Organization Address [facility] Co de Phone Number [facility] [address] Department [place] [address] * Basic metabolic panel (08/11/2024 6:15 AM CDT) Sodium 139 135 - 145 mmol/L Potassium, pl 4.0 3.3 - 4.9 mmol/L [facility] Chloride 107 97 - 110 mmol/L [facility] CO2 24 22 - 32 mmol/L [facility] Anion gap 8 2 - 15 mmol/L [facility] BUN 6 6 - 25 mg/dL [facility] Creatinine 0.81 0.80 - 1.30 mg/dL [facility] Glucose 88 70 - 199 mg/dL [facility] Comment: Interpretive Data Fasting [...] Calcium 8.5 8.5 - 10.3 mg/dL [facility] Blood 08/11/2024 6:15 AM CDT 08/11/2024 6:53 AM CDT Chris Villatoro DO LAB BLOOD ORDERABLES F inal Result [facility] [address] Department [place] [address] * CT Abdomen Pelvis W Contrast (08/10/2024 [...] findings as above. For the purposes of air quality chemist, this study was initially interpreted by teleradiology. [...] findings as above. For the purposes of air quality chemist, this study was initially interpreted by teleradiology. There is no significant discrepancy. Electronically signed by: Varghese Beyer M.D. Domenic Arias MD IM CT PROCEDURES Final Resu lt * eGFR [...] LAB BLOOD ORDERABLES Final R esult [facility] [address] Department [place] [address] * (ABNORMAL) Differential, auto (08/10/2024 3:54 AM CDT) Neutrophil abs 18.28(H) 1.50 - 6.50 K/cumm Imm gran abs 0.10 0.00 - 0.10 K/cumm [facility] Lymphocyte abs 1.52 0.80 - 3.30 K/cumm [facility] Monocyte abs 1.50(H) 0.20 - 0.80 K/cumm [facility] Eosinophil abs 0.12 0.00 - 0.50 K/cumm [facility] Basophil abs 0.08 0.00 - 0.10 K/cumm [facility] Neutrophil pct 84.6 % [facility] Comment: Interpretive Data Percent cell count reference ranges are not reported, since discordance with absolute values may lead to misinterpretation of CBC data. Current Interpretive Data was last revised on 2017. Imm gran pct 0.5 % [facility] Comment: Interpretive Data Percent cell count reference ranges are not reported, since discordance with absolute values may lead to misinterpretation of CBC data. Current Interpretive Data was last revised on 2017. Lymphocyte pct 7.0 % [facility] Comment: Interpretive Data Percent cell count reference ranges are not reported, since discordance with absolute values may lead to misinterpretation of CBC data. Current Interpretive Data was last revised on 2017. Monocyte pct 6.9 % [facility] Comment: Interpretive Data Percent cell count reference ranges are not reported, since discordance with absolute values may lead to misinterpretation of CBC data. Current Interpretive Data was last revised on 2017. Eosinophil pct 0.6 % [facility] Comment: Interpretive Data Percent cell count reference ranges are not reported, since discordance with absolute values may lead to misinterpretation of CBC data. Current Interpretive Data was last revised on 2017. Basophil pct 0.4 % [facility] Comment: Interpretive Data Percent cell count reference ranges are not reported, since discordance with absolute values may lead to misinterpretation of CBC data. Current Interpretive Data was last revised on 2017. Blood 08/10/2024 3:54 AM CDT 08/10/2024 4:06 AM CDT us Domenic Arias MD LAB BLOOD ORDERABLES Final R esult [facility] [address] Department [place] [address] * (ABNORMAL) CBC with auto differential (08/10/2024 3:54 AM CDT) WBC 21.60(H) 3.80 - 9.90 K/cumm Hgb 14.0 13.0 - 17.5 g/dL [facility] Hct 43.0 38.9 - 50.3 % [facility] Plt 333 150 - 400 K/cumm [facility] MPV 10.0 9.1 - 12.[address] [facility] RBC 5.07 4.30 - 5.80 M/cumm [facility] MCV 84.8 81.3 - 96.[address] [facility] MCH 27.6 27.1 - 33.[address] [facility] MCHC 32.6 32.3 - 35.7 g/dL [facility] RDW CV 16.4(H) 11.1 - 14.9 % [facility] RDW SD 50.1(H) 35.7 - 48.[address] [facility] NRBC abs 0.00 0.00 - 0.01 K/cumm [facility] Blood Venous blood specimen / Unknown 08/10/2024 3:54 AM CDT 08/10/2024 4:06 AM CDT us Domenic Arias MD LAB BLOOD ORDERABLES Final R esult Performing Organization Address City/[facility]/ZIP Co de Phone Number [facility] [address] Department [place] [place] [address] * Lipase (08/10/2024 3:54 AM CDT) Pathologist [facility] Lipase 27 10 - 99 Units/L Blood Venous blood specimen / Unknown 08/10/2024 3:54 AM CDT 08/10/2024 4:06 AM CDT Domenic Arias MD LAB BLOOD ORDERABLES Final R esult Performing Organization Address [facility] de Phone Number [facility] [address] Department [place] [address] * (ABNORMAL) Comprehensive metabolic panel (08/10/2024 3:54 AM CDT) [facility] Sodium 132(L) 135 - 145 mmol/L Potassium, pl 3.9 3.3 - 4.9 mmol/L [facility] Chloride 96(L) 97 - 110 mmol/L [facility] CO2 20(L) 22 - 32 mmol/L [facility] Anion gap 16(H) 2 - 15 mmol/L [facility] BUN 7 6 - 25 mg/dL [facility] Creatinine 0.95 0.80 - 1.30 mg/dL [facility] Glucose 124 70 - 199 mg/dL [facility] Comment: Interpretive Data Fasting [...] Calcium 9.2 8.5 - 10.3 mg/dL [facility] Bilirubin, total 0.4 0.1 - 1.2 mg/dL [facility] Protein, pl 7.1 6.5 - 8.5 g/dL [facility] Albumin 4.5 3.5 - 5.0 g/dL [facility] Alk phos 81 40 - 130 Units/L [facility] ALT 23 7 - 55 Units/L [facility] AST 24 10 - 50 Units/L [facility] Comment:Slightly Hemolyzed S pecimen Blood 08/10/2024 3:54 AM CDT 08/10/2024 4:06 AM CDT Domenic Arias MD LAB BLOOD ORDERABLES Final R esult [facility] [address] Department [place] [address] * eGFR (08/07/2024 3:20 AM CDT) eGFR [...] data was last reviewed 2021. Blood 08/07/2024 3:2 0 AM CDT 08/07/2024 3:45 AM CDT us Justice Patel MD LAB BLOOD ORDERABLES Fi nal Result [facility] [address] Department [place] [address] * (ABNORMAL) Differential, auto (08/07/2024 3:20 AM CDT) Neutrophil abs 8.4(H) 1.5 - 6.5 K/cumm Imm gran abs 0.0 0.0 - 0.1 K/cumm [facility] Lymphocyte abs 1.5 0.8 - 3.3 K/cumm [facility] Monocyte abs 1.3(H) 0.2 - 0.8 K/cumm [facility] Eosinophil abs 0.1 0.0 - 0.5 K/cumm [facility] Basophil abs 0.1 0.0 - 0.1 K/cumm [facility] Neutrophil pct 74.1 % [facility] Comment: Interpretive Data Percent cell count reference ranges are not reported, since discordance with absolute values may lead to misinterpretation of CBC data. Current Interpretive Data was last revised on 2017. Imm gran pct 0.4 % [facility] Comment: Interpretive Data Percent cell count reference ranges are not reported, since discordance with absolute values may lead to misinterpretation of CBC data. Current Interpretive Data was last revised on 2017. Lymphocyte pct 13.4 % [facility] Comment: Interpretive Data Percent cell count reference ranges are not reported, since discordance with absolute values may lead to misinterpretation of CBC data. Current Interpretive Data was last revised on 2017. Monocyte pct 11.3 % [facility] Comment: Interpretive Data Percent cell count reference ranges are not reported, since discordance with absolute values may lead to misinterpretation of CBC data. Current Interpretive Data was last revised on 2017. Eosinophil pct 0.4 % [facility] Comment: Interpretive Data Percent cell count reference ranges are not reported, since discordance with absolute values may lead to misinterpretation of CBC data. Current Interpretive Data was last revised on 2017. Basophil pct 0.4 % [facility] Comment: Interpretive Data Percent cell count reference ranges are not reported, since discordance with absolute values may lead to misinterpretation of CBC data. Current Interpretive Data was last revised on 2017. Blood 08/07/2024 3:20 AM CDT 08/07/2024 3:44 AM CDT Justice Patel MD LAB BLOOD ORDERABLES Fi nal Result Performing Organization Address [facility] Co de Phone Number [facility] [address] [employer] [place], [place] [id number] * (ABNORMAL) CBC with auto differential (08/07/2024 3:20 AM CDT) WBC 11.3(H) 3.8 - 9.9 K/cumm Hgb 12.9(L) 13.0 - 17.5 g/dL [facility] Hct 39.6 38.9 - 50.3 % [facility] Plt 294 150 - 400 K/cumm [facility] MPV 9.8 9.1 - 12.[address] [facility] RBC 4.63 4.30 - 5.80 M/cumm [facility] MCV 85.5 81.3 - 96.[address] [facility] MCH 27.9 27.1 - 33.[address] [facility] MCHC 32.6 32.3 - 35.7 g/dL [facility] RDW CV 16.4(H) 11.1 - 14.9 % [facility] RDW SD 51.0(H) 35.7 - 48.[address] [facility] NRBC abs 0.00 0.00 - 0.01 K/cumm [facility] Blood 08/07/2024 3:20 AM CDT 08/07/2024 3:44 AM CDT Justice Patel MD LAB BLOOD ORDERABLES Fi nal Result Performing Organization Address [facility] Co de Phone Number [facility] [address] Department [facility] [place] [address] * Lipase (08/07/2024 3:20 AM CDT) Pathologist [facility] Lipase 40 10 - 99 Units/L Blood 08/07/2024 3:20 AM CDT 08/07/2024 3:45 AM CDT Justice Patel MD LAB BLOOD ORDERABLES Fi nal Result [facility] [address] Department [place] [address] * (ABNORMAL) Comprehensive metabolic panel (08/07/2024 3:20 AM CDT) Pathologist [facility] Sodium 138 135 - 145 mmol/L Potassium, pl 3.9 3.3 - 4.9 mmol/L [facility] Chloride 103 97 - 110 mmol/L [facility] CO2 21(L) 22 - 32 mmol/L [facility] Anion gap 14 2 - 15 mmol/L [facility] BUN 9 6 - 25 mg/dL [facility] Creatinine 0.92 0.80 - 1.30 mg/dL [facility] Glucose 107 70 - 199 mg/dL [facility] Comment: Interpretive Data Fasting [...] Calcium 8.8 8.5 - 10.3 mg/dL [facility] Bilirubin, total 0.6 0.1 - 1.2 mg/dL [facility] Protein, pl 6.3(L) 6.5 - 8.5 g/dL [facility] Albumin 4.1 3.5 - 5.0 g/dL [facility] Alk phos 74 40 - 130 Units/L [facility] ALT 23 7 - 55 Units/L [facility] AST 24 10 - 50 Units/L [facility] Comment:Slightly Hemolyzed S pecimen Blood 08/07/2024 3:20 AM CDT 08/07/2024 3:45 AM CDT Justice Patel MD LAB BLOOD ORDERABLES Fi nal Result [facility] [address] Department [place] [address] * SCAN - RADIOLOGY/IMAGING (08/05/2024) Anatomical Region Laterality Modality Other us Provider Scanning Final Result * Urinalysis reflex to microscopic and culture Urine (08/03/2024 1:50 PM CDT) Color, ur Yellow Yellow Comment:Testing performed by : [address] [address] Clarity, ur Clear Clear NEEL Comment:Testing performed by : [address] [address] Specific gravity, ur 1.009 1.003 - 1.030 NEEL Comment:Testing performed by : [address] [address] pH, urine 7.0 NEEL Comment: Interpretive Data U rine pH is affected by diet, medications, systemic acid-base disturbances, and renal tubular function. pH may affect urinary stone formation. For example, urine pH below 6.0 may help reduce the tendency for calcium phosphate stones and pH greater than 6.0 may reduce the tendency for uric acid stone formation. Source: [facility] [employer] Current Interpretive Data was last revised on 2017 Testing performed by: [address] [address] Protein, ur ql Negative Negative NEEL Comment:Testing performed by : [address] [address] Glucose, ur ql Negative Negative NEEL Comment:Testing performed by : [address] [address] Ketones, ur Negative Negative NEEL Comment:Testing performed by : [facility], [address] [place] [address], [place]., [address] Bilirubin, ur Negative Negative NEEL Comment:Testing performed by : [facility], [address] [place] [address], [place]., [address] Blood, ur Negative Negative NEEL Comment:Testing performed by : [address], [place]., [address] Urobilinogen, ur <2.0 <2.0 mg/dL NEEL Comment:Testing performed by : [address], [place]., [address] Nitrite, ur Negative Negative NEEL Comment:Testing performed by : [address], [place]., [address] Leukocyte esterase, ur Negative Negative NEEL Comment:Testing performed by : [address], [place]., [address] UA reflex comment Reflex conditions for microscopic UA and culture not met. NEEL Comment:Testing performed by : [facility], [address] [place] [address], [place]., [address] Urine 08/03/2024 1:50 PM CDT 08/03/2024 1:53 PM CDT Freddy Yao DO LAB MICROBIOLOGY - GENERAL ORDERABLES Final Result NEEL [address] [facility] Department [place] [address] * eGFR (08/03/2024 1:45 PM CDT) eGFR [...] was last reviewed 2021. Testing performed by: [address] [address] Blood 08/03/2024 1:45 PM CDT 08/03/2024 1:53 PM CDT us Freddy Yao DO LAB BLOOD ORDERABLES Final Result NEEL [facility] Department [place] [address] * (ABNORMAL) Differential, auto (08/03/2024 1:45 PM CDT) Neutrophil abs 7.8(H) 1.5 - 6.5 K/cumm Comment:Testing performed by : [address] [address] Imm gran abs 0.1 0.0 - 0.1 K/cumm NEEL Comment:Testing performed by : [address] [address] Lymphocyte abs 2.5 0.8 - 3.3 K/cumm NEEL Comment:Testing performed by : [address] [address] Monocyte abs 1.4(H) 0.2 - 0.8 K/cumm NEEL Comment:Testing performed by : [address] [address] Eosinophil abs 0.1 0.0 - 0.5 K/cumm NEEL Comment:Testing performed by : [address] [address] Basophil abs 0.1 0.0 - 0.1 K/cumm NEEL Comment:Testing performed by : [address] [address] Neutrophil pct 65.5 % [facility] Comment: Interpretive Data Percent cell count reference ranges are not reported, since discordance with absolute values may lead to misinterpretation of CBC data. Current Interpretive Data was last revised on 2017. Testing performed by: [address] [address] Imm gran pct 0.5 % [facility] Comment: Interpretive Data Percent cell count reference ranges are not reported, since discordance with absolute values may lead to misinterpretation of CBC data. Current Interpretive Data was last revised on 2017. Testing performed by: [address] [address] Lymphocyte pct 21.0 % [facility] Comment: Interpretive Data Percent cell count reference ranges are not reported, since discordance with absolute values may lead to misinterpretation of CBC data. Current Interpretive Data was last revised on 2017. Testing performed by: [address] [address] Monocyte pct 11.6 % [facility] Comment: Interpretive Data Percent cell count reference ranges are not reported, since discordance with absolute values may lead to misinterpretation of CBC data. Current Interpretive Data was last revised on 2017. Testing performed by: [address] [address] Eosinophil pct 0.8 % [facility] Comment: Interpretive Data Percent cell count reference ranges are not reported, since discordance with absolute values may lead to misinterpretation of CBC data. Current Interpretive Data was last revised on 2017. Testing performed by: [address] [address] Basophil pct 0.6 % [facility] Comment: Interpretive Data Percent cell count reference ranges are not reported, since discordance with absolute values may lead to misinterpretation of CBC data. Current Interpretive Data was last revised on 2017. Testing performed by: [address] [address] Blood 08/03/2024 1:45 PM CDT 08/03/2024 1:53 PM CDT us Freddy Yao DO LAB BLOOD ORDERABLES Final Result NEEL [address] [facility] Department [place] [address] * (ABNORMAL) CBC with auto differential (08/03/2024 1:45 PM CDT) WBC 11.9(H) 3.8 - 9.9 K/cumm Comment:Testing performed by : [address] [address] Hgb 13.3 13.0 - 17.5 g/dL NEEL Comment:Testing performed by : [address] [address] Hct 40.4 38.9 - 50.3 % NEEL Comment:Testing performed by : [address] [address] Plt 333 150 - 400 K/cumm NEEL Comment:Testing performed by : [address] [address] MPV 10.3 9.1 - 12.3 fL NEEL Comment:Testing performed by : [address] [address] RBC 4.81 4.30 - 5.80 M/cumm NEEL Comment:Testing performed by : [address] [address] MCV 84.0 81.3 - 96.4 fL NEEL Comment:Testing performed by : [address] [address] MCH 27.7 27.1 - 33.3 pg NEEL Comment:Testing performed by : [address] [address] MCHC 32.9 32.3 - 35.7 g/dL NEEL Comment:Testing performed by : [address] [address] RDW CV 16.4(H) 11.1 - 14.9 % NEEL Comment:Testing performed by : [address] [place] [address] RDW SD 50.0(H) 35.7 - 48.1 fL NEEL SMITH Comment:Testing performed by : [address] [address] NRBC abs 0.00 0.00 - 0.01 K/cumm NEEL SMITH Comment:Testing performed by : [address] [address] Blood Venous blood specimen / Unknown 08/03/2024 1:45 PM CDT 08/03/2024 1:53 PM CDT Freddy Yao LAB BLOOD ORDERABLES Final Result Performing Organization Address City/[facility]/ZIP Co de Phone Number QUINT[address] [employer] [place] [address] * Lipase (08/03/2024 1:45 PM CDT) Pathologist [facility] Lipase 58 10 - 99 Units/L Comment:Testing performed by : [address] [address] Blood Venous blood specimen / Unknown 08/03/2024 1:45 PM CDT 08/03/2024 1:53 PM CDT Freddy Yao DO LAB BLOOD ORDERABLES Final Result Performing Organization Address City/[facility]/ZIP Co de Phone Number [address] [place] [address] * Comprehensive metabolic panel (08/03/2024 1:45 PM CDT) Sodium 142 135 - 145 mmol/L Comment:Testing performed by : [address] [address] Potassium, pl 3.9 3.3 - 4.9 mmol/L NEEL SMITH Comment:Testing performed by : [address] [address] Chloride 108 97 - 110 mmol/L NEEL SMITH Comment:Testing performed by : [address] [place] [address] CO2 23 22 - 32 mmol/L [facility] Comment:Testing performed by : [address] [address] Anion gap 11 2 - 15 mmol/L NEEL Comment:Testing performed by : [address] [address] BUN 9 6 - 25 mg/dL [facility] Comment:Testing performed by : [address] [address] Creatinine 0.90 0.80 - 1.30 mg/dL [facility] Comment:Testing performed by : [address] [address] Glucose 107 70 - 199 mg/dL [facility] Comment: Interpretive Data Fasting glucose [...] was last revised 2022. Testing performed by: [address] [address] Calcium 9.4 8.5 - 10.3 mg/dL [facility] Comment:Testing performed by : [address] [address] Bilirubin, total 0.3 0.1 - 1.2 mg/dL [facility] Comment:Testing performed by : [address] [address] Protein, pl 7.1 6.5 - 8.5 g/dL NEEL Comment:Testing performed by : [address] [address] Albumin 4.3 3.5 - 5.0 g/dL [facility] Comment:Testing performed by : [address] [address] Alk phos 80 40 - 130 Units/L NEEL SMITH Comment:Testing performed by : [facility], [address] [place] [address]., [address] ALT 23 7 - 55 Units/L NEEL SMITH Comment:Testing performed by : [facility], [address] [place] [address]., [address] AST 32 10 - 50 Units/L NEEL SMITH Comment:Testing performed by : [address] [address] Blood 08/03/2024 1:45 PM CDT 08/03/2024 1:53 PM CDT us Freddy Yao DO LAB BLOOD ORDERABLES Final Result NEEL SMITH [address] [facility] Department [place] [address] * CT Abdomen Pelvis W Contrast (08/02/2024 [...] Priti Salmeron M.D. TW: JENNA Report ID: [id number] Reading Location: [id number] Procedure Note Priti Salmeron MD - 08/02/2024 [...] Priti Salmeron M.D. TW: JENNA Report ID: [id number] Reading Location: [id number] [facility] CT PROCEDURES Final Result * (ABNORMAL) Urinalysis reflex to microscopic and culture Urine (08/02/2024 8:48 AM CDT) Color, ur Yellow Yellow Comment:Testing performed by : [address] [address] Clarity, ur Clear Clear NEEL Comment:Testing performed by : [address] [address] Specific gravity, ur 1.025 1.003 - 1.030 NEEL Comment:Testing performed by : [address] [address] pH, urine 8.0 NEEL Comment: Interpretive Data U rine pH is affected by diet, medications, systemic acid-base disturbances, and renal tubular function. pH may affect urinary stone formation. For example, urine pH below 6.0 may help reduce the tendency for calcium phosphate stones and pH greater than 6.0 may reduce the tendency for uric acid stone formation. Source: [facility] [employer] Current Interpretive Data was last revised on 2017 Testing performed by: [address] [address] Protein, ur ql 1+(A) Negative NEEL Comment:Testing performed by : [address] [address] Glucose, ur ql Trace(A) Negative NEEL Comment:Testing performed by : [address] [address] Ketones, ur 2+(A) Negative NEEL Comment:Testing performed by : [address] [address] Bilirubin, ur Negative Negative NEEL Comment:Testing performed by : [address] [address] Blood, ur Negative Negative [facility] Comment:Testing performed by : [facility] [address] [place] [address], [place]., [address] Urobilinogen, ur <2.0 <2.0 mg/dL NEEL SMITH Comment:Testing performed by : [facility] [address] [place] [address], [place]., [address] Nitrite, ur Negative Negative NEEL Comment:Testing performed by : [address], [place]., [address] Leukocyte esterase, ur Negative Negative NEEL Comment:Testing performed by : [address], [place]., [address] UA reflex comment Reflex to microscopic UA will be performed. NEEL SMITH Comment:Testing performed by : [address], [place]., [address] Urine 08/02/2024 8:48 AM CDT 08/02/2024 8:54 AM CDT Freddy Yao DO LAB MICROBIOLOGY - GENERAL ORDERABLES Final Result NEEL [address] [facility] Department [place] [address] * (ABNORMAL) Urinalysis, microscopic only (08/02/2024 8:48 AM CDT) WBC, ur 0-5 0 - 5 /HPF Comment:Testing performed by : [address] [address] RBC, ur 0-2 0 - 2 /HPF NEEL SMITH Comment:Testing performed by : [address], [place]., [address] Epithelial cells, squamous, ur 1-5 0 - 5 /HPF NEEL SMITH Comment:Testing performed by : [address], [place]., [address] Mucous, ur Present(A) NEEL SMITH Comment:Testing performed by : [address], [place]., [address] Culture Reflex Comment Reflex conditions for urine culture (WBC >10) not met. NEEL SMITH Comment:Testing performed by : [address] [address] Urine 08/02/2024 8:48 AM CDT 08/02/2024 8:54 AM CDT Freddy Yao DO LAB URINE ORDERABLES Final Result Performing Organization Address City/[facility] Co de Phone Number NEEL [address] [address] * eGFR (08/02/2024 8:43 AM CDT) Pathologist [facility] eGFR >90 >=60 mL/min/1. 73 m2 Comment: [...] was last reviewed 2021. Testing performed by: [address] [address] Blood 08/02/2024 8:43 AM CDT 08/02/2024 8:53 AM CDT Freddy Yao DO LAB BLOOD ORDERABLES Final Result Performing Organization Address City/[facility] Co de Phone Number QUINT[address] Department [place] [address] * (ABNORMAL) Differential, auto (08/02/2024 8:43 AM CDT) Pathologist [facility] Neutrophil abs 12.1(H) 1.5 - 6.5 K/cumm Comment:Testing performed by : [address] [address] Imm gran abs 0.1 0.0 - 0.1 K/cumm [facility] Comment:Testing performed by : [address], [place]., [address] Lymphocyte abs 0.9 0.8 - 3.3 K/cumm [facility] Comment:Testing performed by : [address], [place]., [address] Monocyte abs 0.7 0.2 - 0.8 K/cumm [facility] Comment:Testing performed by : [address] [address] Eosinophil abs 0.0 0.0 - 0.5 K/cumm [facility] Comment:Testing performed by : [address] [address] Basophil abs 0.0 0.0 - 0.1 K/cumm [facility] Comment:Testing performed by : [address] [address] Neutrophil pct 88.2 % [facility] Comment: Interpretive Data Percent cell count reference ranges are not reported, since discordance with absolute values may lead to misinterpretation of CBC data. Current Interpretive Data was last revised on 2017. Testing performed by: [address] [address] Imm gran pct 0.4 % [facility] Comment: Interpretive Data Percent cell count reference ranges are not reported, since discordance with absolute values may lead to misinterpretation of CBC data. Current Interpretive Data was last revised on 2017. Testing performed by: [address] [address] Lymphocyte pct 6.6 % [facility] Comment: Interpretive Data Percent cell count reference ranges are not reported, since discordance with absolute values may lead to misinterpretation of CBC data. Current Interpretive Data was last revised on 2017. Testing performed by: [address] [address] Monocyte pct 4.7 % CERNER Comment: Interpretive Data Percent cell count reference ranges are not reported, since discordance with absolute values may lead to misinterpretation of CBC data. Current Interpretive Data was last revised on 2017. Testing performed by: [address] [address] Eosinophil pct 0.0 % NEEL SMITH Comment: Interpretive Data Percent cell count reference ranges are not reported, since discordance with absolute values may lead to misinterpretation of CBC data. Current Interpretive Data was last revised on 2017. Testing performed by: [address] [address] Basophil pct 0.1 % NEEL Comment: Interpretive Data Percent cell count reference ranges are not reported, since discordance with absolute values may lead to misinterpretation of CBC data. Current Interpretive Data was last revised on 2017. Testing performed by: [address] [address] Blood 08/02/2024 8:43 AM CDT 08/02/2024 8:53 AM CDT us Freddy Yao DO LAB BLOOD ORDERABLES Final Result NEEL [address] [facility] Department of Laboratories [place], [place] [id number] * (ABNORMAL) CBC with auto differential (08/02/2024 8:43 AM CDT) WBC 13.7(H) 3.8 - 9.9 K/cumm Comment:Testing performed by : [address] [address] Hgb 12.9(L) 13.0 - 17.5 g/dL NEEL SMITH Comment:Testing performed by : [address] [address] Hct 38.3(L) 38.9 - 50.3 % NEEL SMITH Comment:Testing performed by : [address] [address] Plt 310 150 - 400 K/cumm NEEL SMITH Comment:Testing performed by : [address] [address] MPV 9.9 9.1 - 12.3 fL NEEL Comment:Testing performed by : [address] [address] RBC 4.63 4.30 - 5.80 M/cumm NEEL SMITH Comment:Testing performed by : [address] [address] MCV 82.7 81.3 - 96.4 fL NEEL Comment:Testing performed by : [address] [address] MCH 27.9 27.1 - 33.3 pg NEEL Comment:Testing performed by : [address] [address] MCHC 33.7 32.3 - 35.7 g/dL NEEL Comment:Testing performed by : [address] [address] RDW CV 15.9(H) 11.1 - 14.9 % NEEL Comment:Testing performed by : [address] [address] RDW SD 48.1 35.7 - 48.1 fL NEEL Comment:Testing performed by : [address] [address] NRBC abs 0.00 0.00 - 0.01 K/cumm NEEL Comment:Testing performed by : [address] [address] Blood Venous blood specimen / Unknown 08/02/2024 8:43 AM CDT 08/02/2024 8:53 AM CDT Freddy Yao DO LAB BLOOD ORDERABLES Final Result [facility] [address] [facility] Department of Laboratories [place], [place] [id number] * Lipase (08/02/2024 8:43 AM CDT) Lipase 28 10 - 99 Units/L Comment:Testing performed by : [address] [address] Blood Venous blood specimen / Unknown 08/02/2024 8:43 AM CDT 08/02/2024 8:53 AM CDT Freddy Yao DO LAB BLOOD ORDERABLES Final Result [facility] [address] [facility] Department [place] [address] * Comprehensive metabolic panel (08/02/2024 8:43 AM CDT) Sodium 143 135 - 145 mmol/L Comment:Testing performed by : [address] [address] Potassium, pl 3.9 3.3 - 4.9 mmol/L NEEL Comment:Testing performed by : [address] [address] Chloride 107 97 - 110 mmol/L NEEL Comment:Testing performed by : [address] [address] CO2 22 22 - 32 mmol/L NEEL Comment:Testing performed by : [address] [address] Anion gap 14 2 - 15 mmol/L NEEL Comment:Testing performed by : [address] [address] BUN 9 6 - 25 mg/dL NEEL Comment:Testing performed by : [address] [address] Creatinine 0.90 0.80 - 1.30 mg/dL NEEL Comment:Testing performed by : [address] [address] Glucose 161 70 - 199 mg/dL NEEL [...] was last revised 2022. Testing performed by: [address] [address] Calcium 9.0 8.5 - 10.3 mg/dL NEEL Comment:Testing performed by : [address] [address] Bilirubin, total 0.5 0.1 - 1.2 mg/dL NEEL Comment:Testing performed by : [address] [address] Protein, pl 7.1 6.5 - 8.5 g/dL NEEL Comment:Testing performed by : [address] [address] Albumin 4.3 3.5 - 5.0 g/dL NEEL Comment:Testing performed by : [address] [address] Alk phos 81 40 - 130 Units/L NEEL Comment:Testing performed by : [address] [address] ALT 20 7 - 55 Units/L NEEL Comment:Testing performed by : [address] [address] AST 26 10 - 50 Units/L NEEL Comment:Testing performed by : [address] [address] Blood 08/02/2024 8:43 AM CDT 08/02/2024 8:53 AM CDT Freddy Yao DO LAB BLOOD ORDERABLES Final Result NEEL SMITH [address] [facility] Department [place] [address] from Last 3 Months Insurance [facility] Advance Directives For more information, please contact: [phone] * Full Code (Latest Code Status on [...] 8:00 AM 06/30/2022 5:06 PM Care Teams Copy Director Relationship Specialty Start Date End Date Td Lopez MD [address] [facility] [address] [place], [place] [id number] PCP - General Family Medicine 11/09/20 Angie Woodard MD [address] [facility] [address] [place] [address] Consulting Physician Gastroenterology 07/17/21 Vimal Woodruff MD [address] [facility] [address] [place] [address] Consulting Physician Gastroenterology 02/10/22
--- OUTSIDE RECORDS SUMMARY | 2024-10-15 11:11 | XMS_ITS | Clinical Summary ---
Author Organization [facility] Address [address] [place] [address] Care Team Providers Care Photographic Printer Name Role Phone Td Lopez MD Primary Care Provider + Angie Woodard MD Unavailable [phone] Vimal Woodruff MD Unavailable [phone] Allergies Active Allergy Reactions Criticality Noted Date [...] 8 (eight) hours as needed 024 Active lidocaine viscous (XYLOCAINE) 2 % solutionIndicatio [...] needed for nausea or vomiting 20 tablet 2024 Discontinued(D uplicate order) lidocaine viscous (XYLOCAINE) [...] 03/25/2024 Assessment & Plan (03/25/2024 11:50 AM WHEAT GROWER): - suspect just muscle strain - will check xray - offered PT but pt refused. Protein-calorie malnutrition, moderate Abdominal pain, generalized 09/19/2023 Assessment & Plan (09/25/2023 12:23 PM CDT): - improving - will give small amount of norco until pt heals from his procedure - f/u with GI Current use of care home anticoagulation 023 Assessment & Plan (09/25/2023 12:23 PM CDT): - stable - continue eliquis Assessment & Plan (03/20/2023 11:08 AM WHEAT GROWER): - restart eliquis due to life long need for anticoagulation History of thrombosis 03/20/2023 Assessment & Plan (09/25/2023 12:22 PM CDT): - stable - continue eliquis Assessment & Plan (03/20/2023 11:08 AM WHEAT GROWER): - restart eliquis due to life long [...] famotidine Assessment & Plan (03/20/2023 11:08 AM WHEAT GROWER): - stable - continue current medication Renal [...] eval. Assessment & Plan (03/25/2024 11:49 AM WHEAT GROWER): - ref to derm for eval Drug [...] pain Assessment & Plan (03/25/2024 11:49 AM WHEAT GROWER): - poor control - continue hyosciamine, famotidine, zofran - ref to GI for continued treatment Assessment & Plan (03/20/2023 11:07 AM WHEAT GROWER): - stable - continue current medication Duodenal [...] prn Assessment & Plan (07/15/2019 11:44 AM WHEAT GROWER): - stable - continue bentyl and amitriptyline [...] medication Assessment & Plan (07/15/2019 11:44 AM WHEAT GROWER): - stable - continue creon Annual physical [...] able Assessment & Plan (07/15/2019 11:46 AM WHEAT GROWER): - encourage healthy diet, exercise - check labs - encouraged quitting smoking Enteritis 02/18/2019 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 Assessment & Plan (07/15/2019 11:37 AM WHEAT GROWER): - encouraged pt to quit smoking Abdominal [...] GI Assessment & Plan (03/20/2023 11:07 AM WHEAT GROWER): - stable - continue current medication per [...] 09/17/202209/08 Assessment & Plan (03/20/2023 11:08 AM WHEAT GROWER): - stable off meds - will monitor [...] 09/25/2023 Assessment & Plan (03/26/2021 11:41 AM WHEAT GROWER): - stable today - continue current medications [...] lexapro Assessment & Plan (07/15/2019 11:38 AM WHEAT GROWER): - stable - continue current plan Gastroesophageal reflux dise ase without esophagitis 07/15/2019 03/18/2023 Overview (07/15/2019): - GERD managed by Dr Woodard - Pt on omeprazole and carafate for sx control Assessment & Plan (01/01/2021 12:09 PM CDT): - stable - continue current medication Assessment & Plan (02/07/2020 2:32 PM CDT): - stable - continue current medication Assessment & Plan (07/15/2019 11:38 AM WHEAT GROWER): - stable - continue omeprazole and carafate Viral illness 07/08/2019 02/12/2021 Assessment & Plan (07/09/2019 9:12 AM WHEAT GROWER): Medrol Dosepak as directed. Recommended Mucinex plain [...] (12/03/2020 3:05 PM CDT): - continue with anjum and derrick prn Other chronic pancreatitis 09/17/2018 1 05/26/2020 Overview (09/17/2018): Added automatically from request for surgery [id number] Assessment & Plan (02/12/2021 11:23 AM CDT): - encouraged pt to f/u with new GI - continue hyoscyamine Assessment & Plan (01/01/2021 12:10 PM CDT): - continue prn oxycodone for now - discussed need to wean off of this as this is not a viable parts counterman solution - will ref to pain management [...] medication Assessment & Plan (07/15/2019 11:36 AM WHEAT GROWER): - controlled - continue current plan Chronic [...] CDT - 10/14/2024 2:13 AM CDT Emergency [facility] Emergency Department [facility] [place] [id number] Enteritis (Primary Dx) Discharge Disposition: Discharge to home or self care 10/13/2024 4:36 AM CDT - 10/13/2024 10:20 AM CDT Emergency [address] [address] Rodney Mejia MD Journagan, Kevin, MD Abdominal pain (Primary Dx); History of pancreatitis; Chronic abdominal pain; Nausea and vomiting, unspecified vomiting type Discharge Disposition: Discharge to home or self care 10/08/2024 7:54 PM CDT - 10/08/2024 8:[address] [facility] Emergency Department [address] [place] [address] Chronic abdominal pain (Primary Dx) Discharge Disposition: Discharge to home or self care 10/07/2024 5:29 AM CDT - 10/07/2024 8:34 AM CDT Emergency [address] [address] Jose Francisco Harper DO Prograis, Shannon Smith, MD Abdominal pain (Primary Dx); Chronic pancreatitis, unspecified pancreatitis type (HCC) Discharge Disposition: Discharge to home or self care 10/06/2024 11:00 AM CDT Office Visit [address] [phone] Td Lopez MD Abdominal pain (Primary Dx); Other chronic pancreatitis (HCC); Gastroesophageal reflux disease without esophagitis; Irritable bowel syndrome with both constipation and diarrhea 10/05/2024 DIPTI IP Outreach [facility] Care Organization [address] [place] [phone] Lakshmi Garcia LPN 10/04/[address] [phone] Td Lopez MD schedule DIPTI appt 10/02/2024 9:53 PM CDT - 10/03/2024 11:39 AM CDT Hospital Encounter [address] [address] María Elena Calvo MD Medavaram, Atul, MD Sada, Kahmalia-Kalee Conceptia, MD Chowdhury, Farhanaz, MD Abdominal pain (Primary Dx); Acute pancreatitis, unspecified complication status, unspecified pancreatitis type; Pain, dental Discharge Disposition: Discharge to home or self care 09/30/2024 5:44 PM CDT - 09/30/2024 8:[address] [facility] Emergency Department [address] [place] [address] Radha Casas DO Abdominal pain (Primary Dx); Urinary tract infection with hematuria, site unspecified Discharge Disposition: Discharge to home or self care 08/23/2024 11:00 AM CDT Office Visit [address] [phone] Td Lopez MD Pain, dental (Primary Dx); Abdominal pain, epigastric 08/16/2024 3:42 AM CDT - 08/16/2024 6:26 AM CDT Emergency [facility] Emergency Department [address] [place] [address] Ashlie Burgess MD Abdominal pain, epigastric (Primary Dx) Discharge Disposition: Discharge to home or self care 08/15/2024 DIPTI IP Outreach [facility] Organization [address] [place] [phone] Lakshmi Garcia LPN 08/13/2024 4:07 PM CDT - 08/13/2024 8:39 PM CDT Emergency [facility] Emergency Department [address] [place] [phone] Crista Bower MD Abdominal pain, generalized (Primary Dx) Discharge Disposition: Discharge to home or self care 08/11/2024 3:31 PM CDT Anesthesia Event [facility] [address] [place] [phone] Juan Daniel Freed MD 08/11/2024 3:15 PM CDT - 08/11/2024 3:45 PM CDT Surgery [facility] [address] [place] [phone] Georges Luna MD EGD 08/10/2024 2:56 AM CDT - 08/12/2024 12:59 PM CDT Hospital Encounter [address] [phone] Domenic Arias MD Shimotani, Dorian Genki, DO Willis, Devin Ray, MD Acute pancreatitis, unspecified complication status, unspecified pancreatitis type (Primary Dx); Abdominal pain, generalized Discharge Disposition: Discharge to home or self care 08/07/2024 2:23 AM CDT - 08/07/2024 5:31 AM CDT Emergency [facility] Emergency Department [address] [place] [phone] Justice Patel MD Abdominal pain, generalized (Primary Dx) Discharge Disposition: Discharge to home or self care 08/05/[address] [facility] Health Information Management [address] [place] [address] Scanning, Provider 08/04/2024 DIPTI ED Outreach [address] [address] Alannah Baumann MA 08/03/2024 2:13 PM CDT - 08/03/2024 3:27 PM CDT [facility] Emergency Department [address] [place] [address] Freddy Yao DO Chronic abdominal pain (Primary Dx); Drug-seeking behavior Discharge Disposition: Discharge to home or self care 08/03/2024 [facility]IPTI ED Outreach [address] [address] Alannah Baumann MA 08/02/2024 8:48 AM CDT - 08/02/2024 10:46 AM CDT [facility] Emergency Department [address] [place] [address] Chronic abdominal pain (Primary Dx) Discharge Disposition: [...] drink = 0.6 oz pur e alcohol) [facility] Utilities Answer Date Recorded In the [...] often do you attend chur ch or roman catholic services? Never 08/11/2024 Do you belong to any clubs o r organizations such as confucianism groups, unions, fraternal or athletic groups, or [...] place to sleep or slept in a mcc (including now)? No 09/21/2023 PHQ-9 Answer Date [...] any time in the past [address] [facility], were you homeless or living in a mcc (including now)? No 08/11/2024 Personal Safety Answer Date Recorded Have you ever been in or are you currently in a harmful physical or emotional relationship or is someone making you feel afraid or unsafe? Denies 10/13/2024 Sex and Gender Information Value Date Recorded Sex Assigned at Not on file Legal Sex Male 3:38 AM WHEAT GROWER Gender Identity Not on file Sexual Orientation [...] 10/13/2024 9:44 PM CDT Plan of Treatment Health Maintenance Due Date Last Done Comments Hepatitis C Screening 1981 Hepatitis B Screening 1999 Pneumococcal vaccine <65 (1 of 2 - PCV) 2000 Covid-19 Vaccine ( - season) 2024 10/29/2021, 11/02/2020, 10/05/2020 Regular Well [...] Vaccines Discontinued Medical Devices Explanted Type Area Engine House Helper Device Identifier Shelf Expiration Date Model / Serial / Lot Secure [employer] 6572 Connell Flexi-Stent 7fr 5cm Small Pigtail Flexible .035in Stent - [id number] Implanted:Qty: 1 on 09/18/2018 by Vimal Woodruff MD at [facility] Explanted:Qty: 1 on 09/20/2018 at [facility] Stent N/A: Pancreas [employer] 06/10/2023 [id number] / / [id number] My Digital Shieldmed Gina [id number] [place] Viabil 10mm 8.5fr 6cm 200cm Fully Covered Self Expand Pull - [id number] - [id number] Implanted:Qty: 1 on 09/18/2018 by Vimal Woodruff MD at [facility] Explanted:Qty: 1 on 09/20/2018 at [facility] Stent N/A: Bile Duct Conmed Gina 06/29/2021 [id number] / [id number] / [employer] Connell Flexi-Stent 7fr 9cm Small Pigtail Flexible .035in Stent 6575 - [id number] Implanted:Qty: 1 on 02/07/2022 by Vimal Woodruff MD at [facility] Explanted:Qty: 1 on 02/10/2022 by Vimal Woodruff MD at [facility] Stent N/A: Pancreas [employer] 09/07/2026 [id number] / / [id number] Cel[employer] Gina Wallflex 10mm X 60mm Fully Covered Biliary [id number] - [id number] Implanted:Qty: 1 on 02/07/2022 by Vimal Woodruff MD at [facility] Explanted:Qty: 1 on 02/10/2022 by Vimal Woodruff MD at [facility] Stent N/A: Bile Duct [employer] Gina 11/04/2023 [id number] / / [id number] [employer] Connell Flexi-Stent 7fr 9cm Small Pigtail Flexible .035in Stent 6575 - [id number] Implanted:Qty: 1 on 09/21/2023 by Vimal Woodruff MD at [facility] Explanted:Qty: 1 on 09/23/2023 by Vimal Woodruff MD at [facility] Stent N/A: Pancreas [employer] 03/11/2028 [id number] / / [id number] Description:Not present at b eginning of case. Self migrated out [employer] Gina Wallflex 10mm X 60mm Fully Covered Biliary [id number] - [id number] Implanted:Qty: 1 on 09/21/2023 by Vimal Woodruff MD at [facility] Explanted:Qty: 1 on 09/23/2023 by Vimal Woodruff MD at [facility] Stent N/A: Bile Duct Octavian Gina 08/02/2025 [id number] / / [id number] Procedures Procedure Name Priority Date/Time Associated Diagnosis [...] CDT 10/14/2024 4:29 AM CDT Narrative [facility] - 10/14/2024 4:30 AM CDT Name of Test->Lipase us Yusef Bear MD LAB BLOOD ORDERABLES Final Result [facility] [address] Department [place] [address] * CT Abdomen Pelvis W Contrast (10/14/2024 1:38 AM CDT) Anatomical Region Laterality Modality Body N/A Computed Tomogra phy 10/14/2024 1:29 AM CDT Impressions 10/14/2024 9:11 AM CDT No acute abnormality in the abdomen or pelvis. No pancreatitis. For the purposes of quality tech, this study was initially interpreted by teleradiology. [...] No pancreatitis. For the purposes of quality tech, this study was initially interpreted by teleradiology. There is no significant discrepancy. Dictated by: López Wynn MD The radiology attending physician has personally reviewed this study, and had reviewed and/or edited this written report and agrees with it. Electronically signed by: Freddy Moreno M.D., MPH Nasir J. Sumiton DO IMG CT PROCEDURES Final Res ult * (ABNORMAL) Urinalysis reflex to microscopic and culture Urine (10/13/2024 10:10 PM CDT) Color, ur Yellow Yellow Clarity, ur Clear Clear [facility] Specific gravity, ur 1.010 1.003 - 1.030 [facility] pH, urine 6.5 [facility] Comment: Interpretive Data U rine pH is affected by diet, medications, systemic acid-base disturbances, and renal tubular function. pH may affect urinary stone formation. For example, urine pH below 6.0 may help reduce the tendency for calcium phosphate stones and pH greater than 6.0 may reduce the tendency for uric acid stone formation. Source: [facility] [employer] Current Interpretive Data was last revised on 2017 Protein, ur ql Negative Negative [facility] Glucose, ur ql Negative Negative [facility] Ketones, ur 1+(A) Negative [facility] Bilirubin, ur Negative Negative [facility] Blood, ur Negative Negative [facility] Urobilinogen, ur <2.0 <2.0 mg/dL [facility] Nitrite, ur Negative Negative [facility] Leukocyte esterase, ur Negative Negative [facility] UA reflex comment Reflex conditions for microscopic UA and culture not met. [facility] Urine 10/13/2024 10:1 0 PM CDT 10/13/2024 10:11 PM CDT us Abdiel Donaldson MD LAB MICROBIOLOGY - GENERAL O RDERABLES Final Result [facility] [address] Department [place] [address] * eGFR (10/13/2024 10:06 PM CDT) eGFR [...] MD LAB BLOOD ORDERABLES Final R esult [facility] [address] Department [place] [address] * (ABNORMAL) Differential, auto (10/13/2024 10:06 PM CDT) Neutrophil abs 11.31(H) 1.50 - 6.50 K/cumm Imm gran abs 0.06 0.00 - 0.10 K/cumm [facility] Lymphocyte abs 1.47 0.80 - 3.30 K/cumm [facility] Monocyte abs 1.09(H) 0.20 - 0.80 K/cumm [facility] Eosinophil abs 0.07 0.00 - 0.50 K/cumm [facility] Basophil abs 0.04 0.00 - 0.10 K/cumm [facility] Neutrophil pct 80.5 % [facility] Comment: Interpretive Data Percent cell count reference ranges are not reported, since discordance with absolute values may lead to misinterpretation of CBC data. Current Interpretive Data was last revised on 2017. Imm gran pct 0.4 % [facility] Comment: Interpretive Data Percent cell count reference ranges are not reported, since discordance with absolute values may lead to misinterpretation of CBC data. Current Interpretive Data was last revised on 2017. Lymphocyte pct 10.5 % [facility] Comment: Interpretive Data Percent cell count reference ranges are not reported, since discordance with absolute values may lead to misinterpretation of CBC data. Current Interpretive Data was last revised on 2017. Monocyte pct 7.8 % [facility] Comment: Interpretive Data Percent cell count reference ranges are not reported, since discordance with absolute values may lead to misinterpretation of CBC data. Current Interpretive Data was last revised on 2017. Eosinophil pct 0.5 % [facility] Comment: Interpretive Data Percent cell count reference ranges are not reported, since discordance with absolute values may lead to misinterpretation of CBC data. Current Interpretive Data was last revised on 2017. Basophil pct 0.3 % [facility] Comment: Interpretive Data Percent cell count reference ranges are not reported, since discordance with absolute values may lead to misinterpretation of CBC data. Current Interpretive Data was last revised on 2017. Blood 10/13/2024 10:0 6 PM CDT 10/13/2024 10:43 PM CDT us Abdiel Donaldson MD LAB BLOOD ORDERABLES Final R esult [facility] [address] Department [place] [address] * (ABNORMAL) CBC with auto differential (10/13/2024 10:06 PM CDT) WBC 14.04(H) 3.80 - 9.90 K/cumm Hgb 14.1 13.0 - 17.5 g/dL [facility] Hct 43.6 38.9 - 50.3 % [facility] Plt 312 150 - 400 K/cumm [facility] MPV 10.3 9.1 - 12.3 fL [facility] RBC 5.01 4.30 - 5.80 M/cumm [facility] MCV 87.0 81.3 - 96.4 fL [facility] MCH 28.1 27.1 - 33.3 pg [facility] MCHC 32.3 32.3 - 35.7 g/dL [facility] RDW CV 15.6(H) 11.1 - 14.9 % [facility] RDW SD 49.1(H) 35.7 - 48.1 fL [facility] NRBC abs 0.00 0.00 - 0.01 K/cumm [facility] Blood Venous blood specimen / Unknown 10/13/2024 10:06 PM CDT 10/13/2024 10:43 PM CDT Abdiel Donaldson MD LAB BLOOD ORDERABLES Final R esult [facility] [address] [place] [address] * (ABNORMAL) Lipase (10/13/2024 10:06 PM CDT) [facility] Lipase 119(H) 10 - 99 Units/L Blood 10/13/2024 10:0 6 PM CDT 10/13/2024 10:43 PM CDT Abdiel Donaldson MD LAB BLOOD ORDERABLES Final R esult Performing Organization Address City/[facility]/ZIP Co de Phone Number [facility] [address] [place], [place] [id number] * (ABNORMAL) Comprehensive metabolic panel (10/13/2024 10:06 PM CDT) [facility] Sodium 144 135 - 145 mmol/L Potassium, pl 3.7 3.3 - 4.9 mmol/L [facility] Chloride 104 97 - 110 mmol/L [facility] CO2 22 22 - 32 mmol/L [facility] Anion gap 18(H) 2 - 15 mmol/L [facility] BUN 7 6 - 25 mg/dL [facility] Creatinine 0.91 0.80 - 1.30 mg/dL [facility] Glucose 95 70 - 199 mg/dL [facility] Comment: Interpretive Data Fasting glucose >/= 126 [...] 2022. Calcium 9.3 8.5 - 10.3 mg/dL [facility] Bilirubin, total 0.4 0.1 - 1.2 mg/dL [facility] Protein, pl 7.0 6.5 - 8.5 g/dL [facility] Albumin 4.5 3.5 - 5.0 g/dL [facility] Alk phos 82 40 - 130 Units/L [facility] ALT 16 7 - 55 Units/L [facility] AST 19 10 - 50 Units/L [facility] Blood Venous blood specimen / Unknown 10/13/2024 10:06 PM CDT 10/13/2024 10:43 PM CDT Abdiel Donaldson MD LAB BLOOD ORDERABLES Final R esult Performing Organization Address [facility] Co de Phone Number [facility] [address] Department [place] [address] * ECG 12 lead (10/13/2024 9:51 PM CDT) 10/13/2024 9:51 PM CDT Narrative [facility] - 10/14/2024 9:31 AM CDT Vent Rate: 68 bpm RR Interval: 880 msec UT Interval: 129 msec QRS Duration: 113 msec QT Interval: 357 msec QTC Interval: 374 msec P-R-T Mccune: 26 - 53 - 61 degrees IMPRESSION: SINUS RHYTHM WITH A BORDERLINE SHORT UT INTERVAL WITH MARKED SINUS ARRHYTHMIA INCOMPLETE RIGHT BUNDLE-BRANCH BLOCK BORDERLINE ECG Electronically Signed By: Calvin Sanabria MD mobap Jose Francisco Jessica MD ECG ORDERABLES Final Resu lt Performing Organization Address City/[facility]/ZIP Co de Phone Number [facility] * (ABNORMAL) Differential, auto (10/13/2024 7:40 AM CDT) Neutrophil abs 12.72(H) 1.50 - 6.50 K/cumm Imm gran abs 0.06 0.00 - 0.10 K/cumm [facility] Lymphocyte abs 0.98 0.80 - 3.30 K/cumm [facility] Monocyte abs 0.59 0.20 - 0.80 K/cumm [facility] Eosinophil abs 0.01 0.00 - 0.50 K/cumm [facility] Basophil abs 0.04 0.00 - 0.10 K/cumm [facility] Neutrophil pct 88.3 % [facility] Comment: Interpretive Data Percent cell count reference ranges are not reported, since discordance with absolute values may lead to misinterpretation of CBC data. Current Interpretive Data was last revised on 2017. Imm gran pct 0.4 % [facility] Comment: Interpretive Data Percent cell count reference ranges are not reported, since discordance with absolute values may lead to misinterpretation of CBC data. Current Interpretive Data was last revised on 2017. Lymphocyte pct 6.8 % [facility] Comment: Interpretive Data Percent cell count reference ranges are not reported, since discordance with absolute values may lead to misinterpretation of CBC data. Current Interpretive Data was last revised on 2017. Monocyte pct 4.1 % [facility] Comment: Interpretive Data Percent cell count reference ranges are not reported, since discordance with absolute values may lead to misinterpretation of CBC data. Current Interpretive Data was last revised on 2017. Eosinophil pct 0.1 % [facility] Comment: Interpretive Data Percent cell count reference ranges are not reported, since discordance with absolute values may lead to misinterpretation of CBC data. Current Interpretive Data was last revised on 2017. Basophil pct 0.3 % [facility] Comment: Interpretive Data Percent cell count reference ranges are not reported, since discordance with absolute values may lead to misinterpretation of CBC data. Current Interpretive Data was last revised on 2017. Blood 10/13/2024 7:40 AM CDT 10/13/2024 7:42 AM CDT Rodney Mejia MD LAB BLOOD ORDERABLES Fi nal Result Performing Organization Address City/[facility] Co de Phone Number [facility] [address] [place] [address] * (ABNORMAL) CBC with auto differential (10/13/2024 7:40 AM CDT) WBC 14.40(H) 3.80 - 9.90 K/cumm Hgb 13.1 13.0 - 17.5 g/dL [facility] Hct 40.8 38.9 - 50.3 % [facility] Plt 242 150 - 400 K/cumm [facility] MPV 9.9 9.1 - 12.3 fL [facility] RBC 4.61 4.30 - 5.80 M/cumm [facility] MCV 88.5 81.3 - 96.4 fL [facility] MCH 28.4 27.1 - 33.3 pg [facility] MCHC 32.1(L) 32.3 - 35.7 g/dL [facility] [facility] RDW CV 15.4(H) 11.1 - 14.9 % [facility] RDW SD 49.5(H) 35.7 - 48.1 fL [facility] NRBC abs 0.00 0.00 - 0.01 K/cumm [facility] Blood 10/13/2024 7:40 AM CDT 10/13/2024 7:42 AM CDT Narrative [facility] - 10/13/2024 7:45 AM CDT For after fluids Rodney Mejia MD LAB BLOOD ORDERABLES Fi nal Result Performing Organization Address City/[facility]/ZIP Co de Phone Number [facility] [address] [employer] [place], [place] [id number] * Sepsis Lactate w/ Reflex (10/13/2024 4:57 AM CDT) Sepsis Lactate 1.1 0.7 - 2.0 mmol/L Blood 10/13/2024 4:57 AM CDT 10/13/2024 4:59 AM CDT us Rodney Mejia MD LAB BLOOD ORDERABLES nal Result NEEL [address] [facility] Department [place] [address] * (ABNORMAL) Drugs of Abuse Screen, Urine with Reflex Confirmation (10/13/2024 4:13 AM CDT) Amphetamine, ur Not Detected CutOff 500ng/mL Comment: [...] Screen Positive, presumptive (A) CutOff 50 ng/mL [facility] Comment: Interpretive Data - Cannabinoids: Samples containing greater than 50 ng/mL delta-9 THC -COOH or other cross- reacting compounds are reported as positive. False positive and false negative results are possible. Confirmatory testing required for definitive results. Current Interpretive Data was last reviewed 2022. Cocaine, ur Not Detected CutOff 150ng/mL [facility] Comment: Interpretive Data - Cocaine: Samples containing greater than 150 ng/mL benzoylecgonine or other cross- reacting compounds are reported as positive. False positive and false negative results are possible. Confirmatory testing required for definitive results. Current Interpretive Data was last reviewed 2022. Fentanyl, Ur Not Detected CutOff 5 ng/mL NEEL Comment: Interpretive Data - Fentanyl: Samples containing [...] 2022. Oxycodone, ur Not Detected CutOff 100ng/mL [facility] Comment: Interpretive Data - Oxycodone: Samples containing [...] Cocaine, Fentanyl, Methadone, Opiates, Oxycodone or Phencyclidine. Result [facility] Rodney Mejia MD LAB URINE ORDERABLES Fi nal Result Performing Organization Address [facility]/[place]UST de Phone Number [address] [address] * Troponin T high-sensitivity series (baseline, 2hr, 4hr, 6hr) (10/13/2024 4:08 AM CDT) Trop T hs <6 <=22 ng/L Comment: Interpretive Data For further hscTnT resources including the diagnostic algorithm and an aid in interpretation, copy and paste this link: https://nrl.testcatalog.org/show/[email or web address] Current Interpretive Data last revised 2020. Blood 10/13/2024 4:08 AM CDT 10/13/2024 4:16 AM CDT Rodney Mejia MD LAB BLOOD ORDERABLES nal Result Performing Organization Address [facility]/[place] de Phone Number [address] [address] * eGFR (10/13/2024 4:08 AM CDT) eGFR 83 >=60 mL/min/1. 73 m2 Comment: [...] MD LAB BLOOD ORDERABLES Fi nal Result [facility] [address] [facility] Department [place] [address] * (ABNORMAL) Differential, auto (10/13/2024 4:08 AM CDT) Neutrophil abs 12.87(H) 1.50 - 6.50 K/cumm Imm gran abs 0.09 0.00 - 0.10 K/cumm [facility] Lymphocyte abs 2.58 0.80 - 3.30 K/cumm [facility] Monocyte abs 1.61(H) 0.20 - 0.80 K/cumm [facility] Eosinophil abs 0.19 0.00 - 0.50 K/cumm [facility] Basophil abs 0.07 0.00 - 0.10 K/cumm [facility] Neutrophil pct 74.0 % [facility] Comment: Interpretive Data Percent cell count reference ranges are not reported, since discordance with absolute values may lead to misinterpretation of CBC data. Current Interpretive Data was last revised on 2017. Imm gran pct 0.5 % [facility] Comment: Interpretive Data Percent cell count reference ranges are not reported, since discordance with absolute values may lead to misinterpretation of CBC data. Current Interpretive Data was last revised on 2017. Lymphocyte pct 14.8 % [facility] Comment: Interpretive Data Percent cell count reference ranges are not reported, since discordance with absolute values may lead to misinterpretation of CBC data. Current Interpretive Data was last revised on 2017. Monocyte pct 9.2 % [facility] Comment: Interpretive Data Percent cell count reference ranges are not reported, since discordance with absolute values may lead to misinterpretation of CBC data. Current Interpretive Data was last revised on 2017. Eosinophil pct 1.1 % [facility] Comment: Interpretive Data Percent cell count reference ranges are not reported, since discordance with absolute values may lead to misinterpretation of CBC data. Current Interpretive Data was last revised on 2017. Basophil pct 0.4 % [facility] Comment: Interpretive Data Percent cell count reference ranges are not reported, since discordance with absolute values may lead to misinterpretation of CBC data. Current Interpretive Data was last revised on 2017. Blood 10/13/2024 4:08 AM CDT 10/13/2024 4:16 AM CDT us Rodney Mejia MD LAB BLOOD ORDERABLES Fi nal Result [facility] [address] [facility] Department [place] [address] * (ABNORMAL) Urinalysis reflex to microscopic and culture Urine (10/13/2024 4:08 AM CDT) Color, ur Yellow Yellow Clarity, ur Cloudy(A) Clear [facility] Specific gravity, ur 1.013 1.003 - 1.030 [facility] pH, urine 7.5 [facility] Comment: Interpretive Data U rine pH is affected by diet, medications, systemic acid-base disturbances, and renal tubular function. pH may affect urinary stone formation. For example, urine pH below 6.0 may help reduce the tendency for calcium phosphate stones and pH greater than 6.0 may reduce the tendency for uric acid stone formation. Source: [facility] Current Interpretive Data was last revised on 2017 Protein, ur ql Negative Negative [facility] Glucose, ur ql Negative Negative [facility] Ketones, ur Negative Negative [facility] Bilirubin, ur Negative Negative [facility] Blood, ur Negative Negative [facility] Urobilinogen, ur <2.0 <2.0 mg/dL [facility] Nitrite, ur Negative Negative [facility] Leukocyte esterase, ur Negative Negative [facility] UA reflex comment Reflex conditions for microscopic UA and culture not met. [facility] Urine 10/13/2024 4:08 AM CDT 10/13/2024 4:16 AM CDT Rodney Mejia MD LAB MICROBIOLOGY - GENE RAL ORDERABLES Final Result Performing Organization Address City/[facility]/ZIP Co de Phone Number [facility] [address] [place] [address] * (ABNORMAL) CBC with auto differential (10/13/2024 4:08 AM CDT) WBC 17.41(H) 3.80 - 9.90 K/cumm Hgb 13.8 13.0 - 17.5 g/dL [facility] Hct 41.2 38.9 - 50.3 % [facility] Plt 291 150 - 400 K/cumm [facility] MPV 9.9 9.1 - 12.3 fL [facility] RBC 4.87 4.30 - 5.80 M/cumm [facility] MCV 84.6 81.3 - 96.4 fL [facility] MCH 28.3 27.1 - 33.3 pg [facility] MCHC 33.5 32.3 - 35.7 g/dL [facility] RDW CV 15.4(H) 11.1 - 14.9 % [facility] RDW SD 46.5 35.7 - 48.1 fL [facility] NRBC abs 0.00 0.00 - 0.01 K/cumm [facility] Blood Venous blood specimen / Unknown 10/13/2024 4:08 AM CDT 10/13/2024 4:16 AM CDT Rodney Mejia MD LAB BLOOD ORDERABLES Fi nal Result Performing Organization Address City/[facility]/ZIP Co de Phone Number NEEL [address] [place] [address] * (ABNORMAL) Lipase (10/13/2024 4:08 AM CDT) Lipase 270(H) 10 - 99 Units/L Blood Venous blood specimen / Unknown 10/13/2024 4:08 AM CDT 10/13/2024 4:16 AM CDT us Rodney Mejia MD LAB BLOOD ORDERABLES Fi nal Result [facility] [address] [facility] Department [place] [address] * Comprehensive metabolic panel (10/13/2024 4:08 AM CDT) [facility] Sodium 141 135 - 145 mmol/L Potassium, pl 3.8 3.3 - 4.9 mmol/L [facility] Chloride 104 97 - 110 mmol/L [facility] CO2 22 22 - 32 mmol/L [facility] Anion gap 15 2 - 15 mmol/L [facility] BUN 12 6 - 25 mg/dL [facility] Creatinine 1.13 0.80 - 1.30 mg/dL [facility] Glucose 110 70 - 199 mg/dL [facility] Comment: Interpretive Data Fasting glucose >/= [...] 2022. Calcium 9.2 8.5 - 10.3 mg/dL [facility] Bilirubin, total 0.3 0.1 - 1.2 mg/dL [facility] Protein, pl 6.8 6.5 - 8.5 g/dL [facility] Albumin 4.2 3.5 - 5.0 g/dL [facility] Alk phos 77 40 - 130 Units/L [facility] ALT 15 7 - 55 Units/L [facility] AST 19 10 - 50 Units/L [facility] Blood 10/13/2024 4:08 AM CDT 10/13/2024 4:16 AM CDT Rodney Mejia MD LAB BLOOD ORDERABLES Fi nal Result Performing Organization Address City/[facility]/ZIP Co de Phone Number NEEL [address] [facility] Department [place] [address] * ECG 12 lead (10/13/2024 3:54 AM CDT) Ventricular Rate EKG/Min 66 BPM [facility] Atrial Rate 66 BPM [facility] UT-Interval (MSEC) 86 ms [facility] QRS-Interval (MSEC) 100 ms [facility] QT-Interval (MSEC) 376 ms [facility] QTc 394 ms [facility] P Mccune 3 degrees [facility] R Mccune 45 degrees [facility] T Mccune 52 degrees [facility] Diagnosis Sinus rhythm with short UT Incomplete right bundle branch block Confirmed by HOLLAND MELGAR M.D. ([facility]) on 10/13/2024 9:29:09 AM [facility] 10/13/2024 3:54 AM CDT 10/13/2024 9:29 AM CDT Rodney Mejia MD ECG ORDERABLES Final R esult Performing Organization Address [facility]/[place] de Phone Number [facility] * eGFR (10/08/2024 7:25 PM CDT) eGFR [...] was last reviewed 2021. Testing performed by: [address] [address] Blood 10/08/2024 7:25 PM CDT 10/08/2024 7:29 PM CDT Lilliana LAWTON LAB BLOOD ORDERABLES Final Result [place] [id number] [facility] Department [place] [address] * (ABNORMAL) Differential, auto (10/08/2024 7:25 PM CDT) Neutrophil abs 5.02 1.50 - 6.50 K/cumm Comment:Testing performed by : [address] [address] Imm gran abs 0.04 0.00 - 0.10 K/cumm NEEL Comment:Testing performed by : [address] [address] Lymphocyte abs 3.13 0.80 - 3.30 K/cumm NEEL Comment:Testing performed by : [address] [address] Monocyte abs 1.11(H) 0.20 - 0.80 K/cumm NEEL Comment:Testing performed by : [address] [address] Eosinophil abs 0.10 0.00 - 0.50 K/cumm NEEL Comment:Testing performed by : [address] [address] Basophil abs 0.06 0.00 - 0.10 K/cumm NEEL Comment:Testing performed by : [address] [address] Neutrophil pct 53.1 % NEEL Comment: Interpretive Data Percent cell count reference ranges are not reported, since discordance with absolute values may lead to misinterpretation of CBC data. Current Interpretive Data was last revised on 2017. Testing performed by: [address] [address] Imm gran pct 0.4 % [facility] Comment: Interpretive Data Percent cell count reference ranges are not reported, since discordance with absolute values may lead to misinterpretation of CBC data. Current Interpretive Data was last revised on 2017. Testing performed by: [address] [address] Lymphocyte pct 33.1 % [facility] Comment: Interpretive Data Percent cell count reference ranges are not reported, since discordance with absolute values may lead to misinterpretation of CBC data. Current Interpretive Data was last revised on 2017. Testing performed by: [address] [address] Monocyte pct 11.7 % [facility] Comment: Interpretive Data Percent cell count reference ranges are not reported, since discordance with absolute values may lead to misinterpretation of CBC data. Current Interpretive Data was last revised on 2017. Testing performed by: [address] [address] Eosinophil pct 1.1 % [facility] Comment: Interpretive Data Percent cell count reference ranges are not reported, since discordance with absolute values may lead to misinterpretation of CBC data. Current Interpretive Data was last revised on 2017. Testing performed by: [address] [address] Basophil pct 0.6 % [facility] Comment: Interpretive Data Percent cell count reference ranges are not reported, since discordance with absolute values may lead to misinterpretation of CBC data. Current Interpretive Data was last revised on 2017. Testing performed by: [address] [address] Blood 10/08/2024 7:25 PM CDT 10/08/2024 7:29 PM CDT Lilliana LAWTON LAB BLOOD ORDERABLES Final Result NEEL [facility] Department [place] [address] * (ABNORMAL) CBC with auto differential (10/08/2024 7:25 PM CDT) [facility] WBC 9.46 3.80 - 9.90 K/cumm Comment:Testing performed by : [address] [address] Hgb 15.0 13.0 - 17.5 g/dL NEEL Comment:Testing performed by : [address] [address] Hct 44.6 38.9 - 50.3 % NEEL Comment:Testing performed by : [address] [address] Plt 321 150 - 400 K/cumm NEEL Comment:Testing performed by : [address] [address] MPV 10.0 9.1 - 12.3 fL NEEL Comment:Testing performed by : [address], [address] RBC 5.38 4.30 - 5.80 M/cumm NEEL Comment:Testing performed by : [address] [address] MCV 82.9 81.3 - 96.4 fL NEEL Comment:Testing performed by : [address] [address] MCH 27.9 27.1 - 33.3 pg NEEL Comment:Testing performed by : [address] [address] MCHC 33.6 32.3 - 35.7 g/dL NEEL Comment:Testing performed by : [address], [address] RDW CV 15.5(H) 11.1 - 14.9 % NEEL Comment:Testing performed by : [address] [address] RDW SD 46.7 35.7 - 48.1 fL NEEL Comment:Testing performed by : [address] [address] NRBC abs 0.00 0.00 - 0.01 K/cumm NEEL Comment:Testing performed by : [address] [address] Blood Venous blood specimen / Unknown 10/08/2024 7:25 PM CDT 10/08/2024 7:29 PM CDT Lilliana LAWTON LAB BLOOD ORDERABLES Final Result Performing Organization Address City/[facility] Co de Phone Number [address] [address] * Lipase (10/08/2024 7:25 PM CDT) [facility] Lipase 42 10 - 99 Units/L Comment:Testing performed by : [address] [address] Blood Venous blood specimen / Unknown 10/08/2024 7:25 PM CDT 10/08/2024 7:29 PM CDT Lilliana LAWTON LAB BLOOD ORDERABLES Final Result Performing Organization Address [facility]/[place] de Phone Number [address] [address] * Comprehensive metabolic panel (10/08/2024 7:25 PM CDT) [facility] Sodium 141 135 - 145 mmol/L Comment:Testing performed by : [address] [address] Potassium, pl 4.3 3.3 - 4.9 mmol/L NEEL Comment: Hemolyzed; Potassium value may be falsely elevated by as much as 1.0 mmol/L. Suggest redraw and reanalysis. Testing performed by: [address] [address] Chloride 105 97 - 110 mmol/L NEEL Comment:Testing performed by : [address] [address] CO2 22 22 - 32 mmol/L NEEL Comment:Testing performed by : [address] [address] Anion gap 14 2 - 15 mmol/L NEEL Comment:Testing performed by : [address] [address] BUN 7 6 - 25 mg/dL NEEL Comment:Testing performed by : [address] [address] Creatinine 1.02 0.80 - 1.30 mg/dL NEEL Comment:Testing performed by : [address] [address] Glucose 104 70 - 199 mg/dL NEEL [...] was last revised 2022. Testing performed by: [address] [address] Calcium 10.1 8.5 - 10.3 mg/dL NEEL Comment:Testing performed by : [address] [address] Bilirubin, total 0.3 0.1 - 1.2 mg/dL NEEL Comment:Testing performed by : [address] [address] Protein, pl 7.7 6.5 - 8.5 g/dL NEEL Comment:Testing performed by : [address] [address] Albumin 4.8 3.5 - 5.0 g/dL NEEL Comment:Testing performed by : [address] [address] Alk phos 88 40 - 130 Units/L NEEL Comment:Testing performed by : [facility], [address] [place] [address]., [address] ALT 24 7 - 55 Units/L NEEL SMITH Comment:Testing performed by : [address] [address] AST 25 10 - 50 Units/L NEEL SMITH Comment: Hemolyzed; result may be falsely elevated Testing performed by: [address] [address] Blood 10/08/2024 7:25 PM CDT 10/08/2024 7:29 PM CDT us Lilliana LAWTON LAB BLOOD ORDERABLES Final Result NEEL SMITH [address] [facility] Department [place] [address] * CTA Chest Abdomen Pelvis (10/07/2024 6:41 [...] Melissa Phoenix M.D. SN T: Report ID: [id number] Reading Location: [place] [address] Procedure Note Melissa Phoenix MD - 10/07/2024 [...] Melissa Phoenix M.D. SN T: Report ID: [id number] Reading Location: [id number] Jose Francisco Harper DO IMG CT PROCEDURES [...] states this started about an hour ago [employer]. 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 SN T: Report ID: [id number] Reading Location: [id number] Procedure Note Melissa Phoenix MD - 10/07/2024 EXAM DESCRIPTION: XR CHEST 1 VIEW REASON FOR STUDY: Abd pain, unspecified C/o upper L quad abd pain. Pt states this started about an hour ago [employer].Pt states that he was recently hospitalized for [...] Melissa Phoenix M.D. SN T: Report ID: [id number] Reading Location: [id number] Jose Francisco Harper DO IMG XR PROCEDURES [...] DO LAB BLOOD ORDERABLES Final Result NEEL [address] [facility] Department [place] [address] * ECG 12 lead (10/07/2024 4:11 AM CDT) Ventricular Rate EKG/Min 65 BPM [facility] Atrial Rate 65 BPM [facility] UT-Interval (MSEC) 108 ms [facility] QRS-Interval (MSEC) 102 ms [facility] QT-Interval (MSEC) 388 ms [facility] QTc 403 ms [facility] P Mccune 30 degrees [facility] R Mccune 56 degrees [facility] T Mccune 58 degrees [facility] Diagnosis Sinus rhythm with short UT Otherwise normal ECG When compared with ECG of 27-JUN-2024 09:54, No significant change was found Confirmed by ASHLIE BERMEO M.D. ([id number]) on 10/07/2024 11:47:08 PM [facility] 10/07/2024 4:11 AM CDT 10/07/2024 11:47 PM CDT Jose Francisco Harper DO ECG ORDERABLES Final Resul t Performing Organization Address City/[facility]/ZIP Co de Phone Number [facility] * Urinalysis reflex to microscopic and culture Urine (10/07/2024 4:06 AM CDT) Color, ur Yellow Yellow Clarity, ur Clear Clear NEEL Specific gravity, ur 1.013 1.003 - 1.030 [facility] pH, urine 5.5 [facility] Comment: Interpretive Data U rine pH is affected by diet, medications, systemic acid-base disturbances, and renal tubular function. pH may affect urinary stone formation. For example, urine pH below 6.0 may help reduce the tendency for calcium phosphate stones and pH greater than 6.0 may reduce the tendency for uric acid stone formation. Source: [facility] Current Interpretive Data was last revised on 2017 Protein, ur ql Negative Negative [facility] Glucose, ur ql Negative Negative [facility] Ketones, ur Negative Negative [facility] Bilirubin, ur Negative Negative [facility] Blood, ur Negative Negative [facility] Urobilinogen, ur <2.0 <2.0 mg/dL [facility] Nitrite, ur Negative Negative [facility] Leukocyte esterase, ur Negative Negative [facility] UA reflex comment Reflex conditions for microscopic UA and culture not met. NEEL Urine 10/07/2024 4:06 AM CDT 10/07/2024 4:10 AM CDT us Jose Francisco Harper DO LAB MICROBIOLOGY - GENERAL ORDERABLES Final Result NEEL [address] [facility] Department [place] [address] * Troponin T high-sensitivity series (baseline, 2hr, 4hr, 6hr) (10/07/2024 4:00 AM CDT) Trop T hs <6 <=22 ng/L Comment: Interpretive Data For further hscTnT resources including the diagnostic algorithm and an aid in interpretation, copy and paste this link: https://nrl.testcatalog.org/show/[email or web address] Current Interpretive Data last revised 2020. Blood 10/07/2024 4:00 AM CDT 10/07/2024 4:02 AM CDT us Jose Francisco Harper DO LAB BLOOD ORDERABLES Final Result NEEL [address] Department [place] [address] * eGFR (10/07/2024 4:00 AM CDT) Pathologist [facility] eGFR 87 >=60 mL/min/1. 73 m2 Comment: [...] 4:00 AM CDT 10/07/2024 4:02 AM CDT us Jose Francisco Harper DO LAB BLOOD ORDERABLES Final Result NEEL [address] [facility] Department [place] [address] * (ABNORMAL) Differential, auto (10/07/2024 4:00 AM CDT) Neutrophil abs 5.81 1.50 - 6.50 K/cumm Imm gran abs 0.04 0.00 - 0.10 K/cumm [facility] Lymphocyte abs 3.73(H) 0.80 - 3.30 K/cumm [facility] Monocyte abs 1.14(H) 0.20 - 0.80 K/cumm [facility] Eosinophil abs 0.27 0.00 - 0.50 K/cumm [facility] Basophil abs 0.06 0.00 - 0.10 K/cumm [facility] Neutrophil pct 52.6 % [facility] Comment: Interpretive Data Percent cell count reference ranges are not reported, since discordance with absolute values may lead to misinterpretation of CBC data. Current Interpretive Data was last revised on 2017. Imm gran pct 0.4 % [facility] Comment: Interpretive Data Percent cell count reference ranges are not reported, since discordance with absolute values may lead to misinterpretation of CBC data. Current Interpretive Data was last revised on 2017. Lymphocyte pct 33.8 % [facility] Comment: Interpretive Data Percent cell count reference ranges are not reported, since discordance with absolute values may lead to misinterpretation of CBC data. Current Interpretive Data was last revised on 2017. Monocyte pct 10.3 % [facility] Comment: Interpretive Data Percent cell count reference ranges are not reported, since discordance with absolute values may lead to misinterpretation of CBC data. Current Interpretive Data was last revised on 2017. Eosinophil pct 2.4 % [facility] Comment: Interpretive Data Percent cell count reference ranges are not reported, since discordance with absolute values may lead to misinterpretation of CBC data. Current Interpretive Data was last revised on 2017. Basophil pct 0.5 % [facility] Comment: Interpretive Data Percent cell count reference ranges are not reported, since discordance with absolute values may lead to misinterpretation of CBC data. Current Interpretive Data was last revised on 2017. Blood 10/07/2024 4:00 AM CDT 10/07/2024 4:02 AM CDT Jose Francisco Rubio [facility] LAB BLOOD ORDERABLES Final Result Performing Organization Address City/[facility] Co de Phone Number NEEL [address] [address] * (ABNORMAL) CBC with auto differential (10/07/2024 4:00 AM CDT) WBC 11.05(H) 3.80 - 9.90 K/cumm Hgb 14.9 13.0 - 17.5 g/dL [facility] Hct 44.7 38.9 - 50.3 % [facility] Plt 281 150 - 400 K/cumm [facility] MPV 9.8 9.1 - 12.3 fL [facility] RBC 5.28 4.30 - 5.80 M/cumm [facility] MCV 84.7 81.3 - 96.4 fL [facility] MCH 28.2 27.1 - 33.3 pg [facility] MCHC 33.3 32.3 - 35.7 g/dL [facility] RDW CV 15.3(H) 11.1 - 14.9 % [facility] RDW SD 46.6 35.7 - 48.1 fL [facility] NRBC abs 0.00 0.00 - 0.01 K/cumm [facility] Blood Venous blood specimen / Unknown 10/07/2024 4:00 AM CDT 10/07/2024 4:02 AM CDT us Jose Francisco Harper LAB BLOOD ORDERABLES Final Result Performing Organization Address City/[facility]/ZIP Co de Phone Number NEEL [address] [address] * (ABNORMAL) Lipase (10/07/2024 4:00 AM CDT) Lipase 104(H) 10 - 99 Units/L Blood Venous blood specimen / Unknown 10/07/2024 4:00 AM CDT 10/07/2024 4:02 AM CDT Jose Francisco Ramiro Leroy LAB BLOOD ORDERABLES Final Result [facility] [address] [facility] Department [place] [address] * Comprehensive metabolic panel (10/07/2024 4:00 AM CDT) Pathologist [facility] Sodium 142 135 - 145 mmol/L Potassium, pl 4.1 3.3 - 4.9 mmol/L [facility] Chloride 107 97 - 110 mmol/L [facility] CO2 23 22 - 32 mmol/L [facility] Anion gap 12 2 - 15 mmol/L [facility] BUN 9 6 - 25 mg/dL [facility] Creatinine 1.08 0.80 - 1.30 mg/dL [facility] Glucose 90 70 - 199 mg/dL [facility] Comment: Interpretive Data Fasting glucose >/= [...] 2022. Calcium 9.4 8.5 - 10.3 mg/dL [facility] Bilirubin, total 0.2 0.1 - 1.2 mg/dL [facility] Protein, pl 7.1 6.5 - 8.5 g/dL [facility] Albumin 4.4 3.5 - 5.0 g/dL [facility] Alk phos 81 40 - 130 Units/L [facility] ALT 23 7 - 55 Units/L [facility] AST 24 10 - 50 Units/L [facility] Blood 10/07/2024 4:00 AM CDT 10/07/2024 4:02 AM CDT us Jose Francisco Harper DO LAB BLOOD ORDERABLES Final Result Performing Organization Address [facility] Co de Phone Number NEEL [address] [address] * eGFR (10/03/2024 7:08 AM CDT) Pathologist [facility] eGFR >90 >=60 mL/min/1. 73 m2 Comment: [...] ORDERABLES Final Res ult Performing Organization Address City/[facility]/ZIP Co de Phone Number QUINTEN[address] [place] [address] * (ABNORMAL) CBC without differential (10/03/2024 7:08 AM CDT) [facility] WBC 13.42(H) 3.80 - 9.90 K/cumm Hgb 12.4(L) 13.0 - 17.5 g/dL [facility] Hct 37.9(L) 38.9 - 50.3 % [facility] Plt 226 150 - 400 K/cumm [facility] MPV 10.0 9.1 - 12.3 fL [facility] RBC 4.43 4.30 - 5.80 M/cumm [facility] MCV 85.6 81.3 - 96.4 fL [facility] MCH 28.0 27.1 - 33.3 pg [facility] MCHC 32.7 32.3 - 35.7 g/dL [facility] RDW CV 15.4(H) 11.1 - 14.9 % [facility] RDW SD 48.1 35.7 - 48.1 fL [facility] NRBC abs 0.00 0.00 - 0.01 K/cumm [facility] Blood 10/03/2024 7:08 AM CDT 10/03/2024 7:22 AM CDT us Fred Toth MD LAB BLOOD ORDERABLES Final Res ult Performing Organization Address [facility] Co de Phone Number [address] [place] [address] * Lipase (10/03/2024 7:08 AM CDT) Pathologist [facility] Lipase 55 10 - 99 Units/L Blood 10/03/2024 7:08 AM CDT 10/03/2024 7:22 AM CDT us Fred Toth MD LAB BLOOD ORDERABLES Final Res ult Performing Organization Address [facility] Co de Phone Number [address] [place] [address] * Basic metabolic panel (10/03/2024 7:08 AM CDT) Pathologist [facility] Sodium 141 135 - 145 mmol/L Potassium, pl 4.4 3.3 - 4.9 mmol/L [facility] Chloride 107 97 - 110 mmol/L [facility] CO2 24 22 - 32 mmol/L [facility] Anion gap 10 2 - 15 mmol/L [facility] BUN 9 6 - 25 mg/dL [facility] Creatinine 0.96 0.80 - 1.30 mg/dL [facility] Glucose 100 70 - 199 mg/dL [facility] Comment: Interpretive Data Fasting glucose >/= [...] Calcium 8.9 8.5 - 10.3 mg/dL NEEL SMITH Blood 10/03/2024 7:08 AM CDT 10/03/2024 7:22 AM CDT us Fred Toth MD LAB BLOOD ORDERABLES Final Res ult NEEL [address] [facility] Department [place] [address] * (ABNORMAL) Lipid panel (10/03/2024 1:54 AM CDT) Pathologist [facility] Cholesterol 114 30 - 199 mg/dL Comment: [...] last revised on 2017. Testing performed by: [facility], [address] [place] [address]., [address] Triglycerides 115 <=149 mg/dL NEEL SMITH Comment: Interpretive Data Ages [...] last revised on 2017. Testing performed by: [address] [address] HDL 32(L) >=40 mg/dL NEEL Comment: Interpretive [...] last revised on 2017. Testing performed by: [address] [address] LDL, calculated 61 <=129 mg/dL NEEL Comment: [...] 2004;110:227 3. Tremaine Arias al. [employer] Cardiol. 2020 September 08;5(5):540-548. doi: 10.1001/jamacardio.2020.0013 Current Interpretive Data was last revised on 2023. Testing performed by: [address] [address] Non-HDL Cholesterol 82 mg/dL NEEL SMITH Comment: [...] last revised on 2017. Testing performed by: [address] [address] Chol/HDL ratio 4 NEEL Comment:Testing performed by : [address] [address] Blood 10/03/2024 1:54 AM CDT 10/03/2024 2:00 AM CDT us Fred Toth MD LAB BLOOD ORDERABLES Final Res ult NEEL [address] [facility] Department [place] [address] * CT Abdomen Pelvis W Contrast (10/03/2024 [...] Aryan Jovel M.D. AR: GIOVANNA Report ID: [id number] Reading Location: [place] [address] Procedure Note Aryan Jovel MD - 10/03/2024 [...] Aryan Jovel M.D. AR: GIOVANNA Report ID: [id number] Reading Location: [place] [address] Fred Toth MD [facility] CT PROCEDURES Final Result * (ABNORMAL) Drugs of Abuse Screen, Urine with Reflex Confirmation (10/03/2024 12:51 AM CDT) Pathologist [facility] Amphetamine, ur Not Detected CutOff 500ng/mL Comment: Interpretive Data - Amphetamines: Samples containing greater than 500 ng/mL d-methamphetamine or other cross-reacting amphetamine compounds are reported as positive. Amphetamine immunoassays are subject to significant false positive rates due to cross-reactivity of non-amphetamine drugs. Confirmatory testing required for definitive results. Current Interpretive Data was last reviewed 2022. Testing performed by: [facility], [address] [place] [address]., [address] Barbiturates, ur Not Detected CutOff 200ng/mL NEEL SMITH Comment: Interpretive Data - Barbiturates: Samples containing greater than 200 ng/mL secobarbital or other cross-reacting barbiturate compounds are reported as positive. False positive and false negative results are possible. Confirmatory testing required for definitive results. Current Interpretive Data was last reviewed 2022. Testing performed by: [address] [address] Benzodiazepines, ur Not Detected CutOff 100ng/mL [facility] Comment: Interpretive Data - Benzodiazepines: Samples containing greater than 100 ng/mL nordiazepam or other cross-reacting compounds are reported as positive. False positive and false negative results are possible. Confirmatory testing required for definitive results. Current Interpretive Data was last reviewed 2022. Testing performed by: [address], [place]., [address] Cannabinoids, ur Screen Positive, presumptive (A) CutOff 50 ng/mL [facility] Comment: Interpretive Data - Cannabinoids: Samples containing greater than 50 ng/mL delta-9 THC -COOH or other cross- reacting compounds are reported as positive. False positive and false negative results are possible. Confirmatory testing required for definitive results. Current Interpretive Data was last reviewed 2022. Testing performed by: [address] [address] Cocaine, ur Not Detected CutOff 150ng/mL [facility] Comment: Interpretive Data - Cocaine: Samples containing greater than 150 ng/mL benzoylecgonine or other cross- reacting compounds are reported as positive. False positive and false negative results are possible. Confirmatory testing required for definitive results. Current Interpretive Data was last reviewed 2022. Testing performed by: [address] [address] Fentanyl, Ur Not Detected CutOff 5 ng/mL [facility] Comment: Interpretive Data - Fentanyl: Samples containing greater than 1 ng/mL fentanyl or other cross-reacting fentanyl compounds are reported as positive. False positive and false negative results are possible. Confirmatory testing required for definitive results. Current Interpretive Data was last reviewed 2022. Testing performed by: [address], [place]., [address] Methadone, ur Not Detected CutOff 300ng/mL [facility] Comment: Interpretive Data - Methadone: Samples containing greater than 300 ng/mL d,l-methadone or other cross-reacting compounds are reported as positive. False positive and false negative results are possible. Confirmatory testing required for definitive results. Current Interpretive Data was last reviewed 2022. Testing performed by: [address] [address] Opiates, ur Not Detected CutOff 300ng/mL NEEL Comment: Interpretive Data - Opiates: Samples containing greater than 300 ng/mL morphine or other cross-reacting compounds are reported as positive. False positive and false negative results are possible. Confirmatory testing required for definitive results. Current Interpretive Data was last reviewed 2022. Testing performed by: [address] [address] Oxycodone, ur Not Detected CutOff 100ng/mL NEEL Comment: Interpretive Data - Oxycodone: Samples containing greater than 100 ng/mL oxycodone or other cross-reacting compounds are reported as positive. False positive and false negative results are possible. Confirmatory testing required for definitive results. Current Interpretive Data was last reviewed 2022. Testing performed by: [address] [address] Phencyclidine, ur Not Detected CutOff 25 ng/mL NEEL Comment: Interpretive Data - Phencyclidine: Samples containing greater than 25 ng/mL phencyclidine or other cross-reacting compounds are reported as positive. False positive and false negative results are possible. Confirmatory testing required for definitive results. Current Interpretive Data was last reviewed 2022. Testing performed by: [address] [address] Urine Creatinine 102 mg/dL NEEL Comment: Interpretive Data Urine Creatinine: < 10 mg/dL is extremely dilute = or > 10 but < 20 mg/dL is dilute = or > 20 mg/dL is normal Current Interpretive Data was last revised on 2017. Testing performed by: [address] [address] Urine 10/03/2024 12:5 1 AM CDT 10/03/2024 [...] LAB URINE ORDERABLES Final Res ult NEEL SMITH [address] [facility] Department [place] [address] * Urinalysis reflex to microscopic and culture Urine (10/02/2024 10:09 PM CDT) Color, ur Yellow Yellow Comment:Testing performed by : [address] [address] Clarity, ur Clear Clear NEEL Comment:Testing performed by : [address] [address] Specific gravity, ur 1.011 1.003 - 1.030 NEEL Comment:Testing performed by : [address] [address] pH, urine 6.0 NEEL Comment: Interpretive Data U rine pH is affected by diet, medications, systemic acid-base disturbances, and renal tubular function. pH may affect urinary stone formation. For example, urine pH below 6.0 may help reduce the tendency for calcium phosphate stones and pH greater than 6.0 may reduce the tendency for uric acid stone formation. Source: [facility] [employer] Current Interpretive Data was last revised on 2017 Testing performed by: [address] [address] Protein, ur ql Negative Negative NEEL Comment:Testing performed by : [address] [address] Glucose, ur ql Negative Negative NEEL Comment:Testing performed by : [address] [address] Ketones, ur Negative Negative NEEL Comment:Testing performed by : [address] [address] Bilirubin, ur Negative Negative NEEL Comment:Testing performed by : [address] [address] Blood, ur Negative Negative NEEL Comment:Testing performed by : [facility], [address] [place] [address]., [address] Urobilinogen, ur <2.0 <2.0 mg/dL NEEL Comment:Testing performed by : [address] [address] Nitrite, ur Negative Negative NEEL Comment:Testing performed by : [address], [place]., [address] Leukocyte esterase, ur Negative Negative NEEL Comment:Testing performed by : [address], [place]., [address] UA reflex comment Reflex conditions for microscopic UA and culture not met. NEEL Comment:Testing performed by : [facility], [address] [place] [address], [place]., [address] Urine 10/02/2024 10:0 9 PM CDT 10/02/2024 10:11 PM CDT María Elena Calvo MD LAB MICROBIOLOGY - GENERA L ORDERABLES Final Result [facility] [address] [facility] Department [place] [address] * eGFR (10/02/2024 9:51 PM CDT) eGFR [...] was last reviewed 2021. Testing performed by: [address] [address] Blood 10/02/2024 9:51 PM CDT 10/02/2024 9:57 PM CDT María Elena Calvo MD LAB BLOOD ORDERABLES Renee tulio Result [facility] [address] [facility] Department [place] [address] * (ABNORMAL) Differential, auto (10/02/2024 9:51 PM CDT) Neutrophil abs 12.91(H) 1.50 - 6.50 K/cumm Comment:Testing performed by : [address] [address] Imm gran abs 0.10 0.00 - 0.10 K/cumm NEEL Comment:Testing performed by : [address] [address] Lymphocyte abs 1.91 0.80 - 3.30 K/cumm NEEL Comment:Testing performed by : [address] [address] Monocyte abs 1.44(H) 0.20 - 0.80 K/cumm NEEL Comment:Testing performed by : [address] [address] Eosinophil abs 0.14 0.00 - 0.50 K/cumm NEEL Comment:Testing performed by : [address] [address] Basophil abs 0.07 0.00 - 0.10 K/cumm NEEL Comment:Testing performed by : [address] [address] Neutrophil pct 78.0 % NEEL Comment: Interpretive Data Percent cell count reference ranges are not reported, since discordance with absolute values may lead to misinterpretation of CBC data. Current Interpretive Data was last revised on 2017. Testing performed by: [address] [address] Imm gran pct 0.6 % [facility] Comment: Interpretive Data Percent cell count reference ranges are not reported, since discordance with absolute values may lead to misinterpretation of CBC data. Current Interpretive Data was last revised on 2017. Testing performed by: [address] [address] Lymphocyte pct 11.5 % [facility] Comment: Interpretive Data Percent cell count reference ranges are not reported, since discordance with absolute values may lead to misinterpretation of CBC data. Current Interpretive Data was last revised on 2017. Testing performed by: [address] [address] Monocyte pct 8.7 % [facility] Comment: Interpretive Data Percent cell count reference ranges are not reported, since discordance with absolute values may lead to misinterpretation of CBC data. Current Interpretive Data was last revised on 2017. Testing performed by: [address] [address] Eosinophil pct 0.8 % [facility] Comment: Interpretive Data Percent cell count reference ranges are not reported, since discordance with absolute values may lead to misinterpretation of CBC data. Current Interpretive Data was last revised on 2017. Testing performed by: [address] [address] Basophil pct 0.4 % [facility] Comment: Interpretive Data Percent cell count reference ranges are not reported, since discordance with absolute values may lead to misinterpretation of CBC data. Current Interpretive Data was last revised on 2017. Testing performed by: [address] [address] Blood 10/02/2024 9:51 PM CDT 10/02/2024 9:57 PM CDT us María Elena Calvo MD LAB BLOOD ORDERABLES Renee antunez Result [facility] [address] [facility] Department [place] [address] * (ABNORMAL) CBC with auto differential (10/02/2024 9:51 PM CDT) [facility] Signature WBC 16.57(H) 3.80 - 9.90 K/cumm Comment:Testing performed by : [address], [address] Hgb 13.9 13.0 - 17.5 g/dL NEEL Comment:Testing performed by : [address] [address] Hct 41.0 38.9 - 50.3 % NEEL Comment:Testing performed by : [address] [address] Plt 281 150 - 400 K/cumm NEEL Comment:Testing performed by : [address], [address] MPV 9.9 9.1 - 12.3 fL NEEL Comment:Testing performed by : [address], [address] RBC 4.94 4.30 - 5.80 M/cumm NEEL Comment:Testing performed by : [address], [address] MCV 83.0 81.3 - 96.4 fL NEEL Comment:Testing performed by : [address] [address] MCH 28.1 27.1 - 33.3 pg NEEL Comment:Testing performed by : [address], [address] MCHC 33.9 32.3 - 35.7 g/dL NEEL Comment:Testing performed by : [address], [address] RDW CV 15.4(H) 11.1 - 14.9 % NEEL Comment:Testing performed by : [address], [address] RDW SD 46.5 35.7 - 48.1 fL NEEL Comment:Testing performed by : [address], [address] NRBC abs 0.00 0.00 - 0.01 K/cumm NEEL Comment:Testing performed by : [address] [address] Blood Venous blood specimen / Unknown 10/02/2024 9:51 PM CDT 10/02/2024 9:57 PM CDT María Elena Calvo MD LAB BLOOD ORDERABLES Renee l Result Performing Organization Address [facility] Co de Phone Number [address] [place] [address] * (ABNORMAL) Lipase (10/02/2024 9:51 PM CDT) Pathologist [facility] Lipase 444(H) 10 - 99 Units/L Comment:Testing performed by : [address] [address] Blood Venous blood specimen / Unknown 10/02/2024 9:51 PM CDT 10/02/2024 9:57 PM CDT María Elena Calvo MD LAB BLOOD ORDERABLES Renee l Result Performing Organization Address [facility] Co de Phone Number [address] [address] * Comprehensive metabolic panel (10/02/2024 9:51 PM CDT) Pathologist [facility] Sodium 143 135 - 145 mmol/L Comment:Testing performed by : [address] [address] Potassium, pl 3.9 3.3 - 4.9 mmol/L NEEL Comment:Testing performed by : [address] [address] Chloride 107 97 - 110 mmol/L NEEL Comment:Testing performed by : [address] [address] CO2 22 22 - 32 mmol/L NEEL Comment:Testing performed by : [address] [address] Anion gap 14 2 - 15 mmol/L NEEL Comment:Testing performed by : [address] [address] BUN 7 6 - 25 mg/dL NEEL Comment:Testing performed by : [address] [address] Creatinine 1.08 0.80 - 1.30 mg/dL NEEL Comment:Testing performed by : [address] [address] Glucose 129 70 - 199 mg/dL NEEL [...] was last revised 2022. Testing performed by: [address] [address] Calcium 10.0 8.5 - 10.3 mg/dL NEEL Comment:Testing performed by : [address] [address] Bilirubin, total 0.3 0.1 - 1.2 mg/dL NEEL Comment:Testing performed by : [address] [address] Protein, pl 7.2 6.5 - 8.5 g/dL NEEL Comment:Testing performed by : [address] [address] Albumin 4.5 3.5 - 5.0 g/dL NEEL Comment:Testing performed by : [address] [address] Alk phos 84 40 - 130 Units/L NEEL Comment:Testing performed by : [address] [address] ALT 28 7 - 55 Units/L NEEL Comment:Testing performed by : [address] [address] AST 37 10 - 50 Units/L NEEL SMITH Comment:Testing performed by : [facility], [address] [place]., [address] Blood 10/02/2024 9:51 PM CDT 10/02/2024 9:57 PM CDT us María Elena Calvo MD LAB BLOOD ORDERABLES Renee antunez Result NEEL [address] [facility] Department [place] [address] * CT Abdomen Pelvis W Contrast (09/30/2024 [...] Esa Cao M.D. AG: GONZALES Report ID: [id number] Reading Location: [id number] Procedure Note Esa Cao MD - 09/30/2024 [...] Esa Cao M.D. AG: GONZALES Report ID: [id number] Reading Location: [id number] Radha Casas DO [facility] CT PROCEDURES Final Result * (ABNORMAL) Urinalysis reflex to microscopic and culture Urine (09/30/2024 5:55 PM CDT) [facility] Signature Color, ur Yellow Yellow Comment:Testing performed by : [facility], [address] [place] [address]., [address] Clarity, ur Clear Clear NEEL Comment:Testing performed by : [address] [address] Specific gravity, ur 1.035(H) 1.003 - 1.030 NEEL Comment:Testing performed by : [address] [address] pH, urine 6.0 NEEL Comment: Interpretive Data U rine pH is affected by diet, medications, systemic acid-base disturbances, and renal tubular function. pH may affect urinary stone formation. For example, urine pH below 6.0 may help reduce the tendency for calcium phosphate stones and pH greater than 6.0 may reduce the tendency for uric acid stone formation. Source: [facility] [employer] Current Interpretive Data was last revised on 2017 Testing performed by: [address] [address] Protein, ur ql 1+(A) Negative NEEL Comment:Testing performed by : [address] [address] Glucose, ur ql Negative Negative NEEL Comment:Testing performed by : [address] [address] Ketones, ur 1+(A) Negative NEEL Comment:Testing performed by : [address] [address] Bilirubin, ur Negative Negative NEEL Comment:Testing performed by : [address] [address] Blood, ur Negative Negative NEEL Comment:Testing performed by : [address] [address] Urobilinogen, ur 2.0(A) <2.0 mg/dL NEEL Comment:Testing performed by : [address] [address] Nitrite, ur Negative Negative NEEL Comment:Testing performed by : [address] [address] Leukocyte esterase, ur Negative Negative NEEL Comment:Testing performed by : [address] [address] UA reflex comment Reflex to microscopic UA will be performed. NEEL Comment:Testing performed by : [address] [address] Urine 09/30/2024 5:55 PM CDT 09/30/2024 5:57 PM CDT Radha Casas DO LAB MICROBIOLOGY - GENERAL ORDE RABLES Final Result Performing Organization Address City/[facility] Co de Phone Number NEEL [address] [place] [address] * (ABNORMAL) Urinalysis, microscopic only (09/30/2024 5:55 PM CDT) WBC, ur 6-10(A) 0 - 5 /HPF Comment:Testing performed by : [address] [address] RBC, ur 3-5(A) 0 - 2 /HPF NEEL Comment:Testing performed by : [address] [address] Epithelial cells, squamous, ur 6-10(A) 0 - 5 /HPF NEEL Comment:Testing performed by : [address] [address] Mucous, ur Present(A) NEEL Comment:Testing performed by : [address] [address] [address] Culture Reflex Comment Reflex conditions for urine culture (WBC >10) not met. NEEL Comment:Testing performed by : [address] [address] Urine 09/30/2024 5:55 PM CDT 09/30/2024 5:57 PM CDT Radha Casas DO LAB URINE ORDERABLES Final Resu lt Performing Organization Address City/[facility]/ZIP Co de Phone Number NEEL [facility]4 [facility] [place] [address] * eGFR (09/30/2024 4:01 PM CDT) Pathologist [facility] eGFR >90 >=60 mL/min/1. 73 m2 Comment: [...] was last reviewed 2021. Testing performed by: [address] [address] Blood 09/30/2024 4:01 PM CDT 09/30/2024 4:06 PM CDT us Radha Casas DO LAB BLOOD ORDERABLES Final Resu lt NEEL SMITH [address] [facility] Department of Laboratories [place], [place] [id number] * Differential, auto (09/30/2024 4:01 PM CDT) Pathologist [facility] Neutrophil abs 5.11 1.50 - 6.50 K/cumm Comment:Testing performed by : [address] [address] Imm gran abs 0.04 0.00 - 0.10 K/cumm NEEL SMITH Comment:Testing performed by : [address] [address] Lymphocyte abs 1.62 0.80 - 3.30 K/cumm NEEL Comment:Testing performed by : [address] [address] Monocyte abs 0.77 0.20 - 0.80 K/cumm NEEL Comment:Testing performed by : [address] [address] Eosinophil abs 0.18 0.00 - 0.50 K/cumm NEEL Comment:Testing performed by : [address] [address] Basophil abs 0.05 0.00 - 0.10 K/cumm [facility] Comment:Testing performed by : [address] [address] Neutrophil pct 65.9 % [facility] Comment: Interpretive Data Percent cell count reference ranges are not reported, since discordance with absolute values may lead to misinterpretation of CBC data. Current Interpretive Data was last revised on 2017. Testing performed by: [address] [address] Imm gran pct 0.5 % [facility] Comment: Interpretive Data Percent cell count reference ranges are not reported, since discordance with absolute values may lead to misinterpretation of CBC data. Current Interpretive Data was last revised on 2017. Testing performed by: [address] [address] Lymphocyte pct 20.8 % [facility] Comment: Interpretive Data Percent cell count reference ranges are not reported, since discordance with absolute values may lead to misinterpretation of CBC data. Current Interpretive Data was last revised on 2017. Testing performed by: [address] [address] Monocyte pct 9.9 % [facility] Comment: Interpretive Data Percent cell count reference ranges are not reported, since discordance with absolute values may lead to misinterpretation of CBC data. Current Interpretive Data was last revised on 2017. Testing performed by: [address] [address] Eosinophil pct 2.3 % [facility] Comment: Interpretive Data Percent cell count reference ranges are not reported, since discordance with absolute values may lead to misinterpretation of CBC data. Current Interpretive Data was last revised on 2017. Testing performed by: [address] [address] Basophil pct 0.6 % NEEL Comment: Interpretive Data Percent cell count reference ranges are not reported, since discordance with absolute values may lead to misinterpretation of CBC data. Current Interpretive Data was last revised on 2017. Testing performed by: [address] [address] Blood 09/30/2024 4:01 PM CDT 09/30/2024 4:06 PM CDT Radha Casas DO LAB BLOOD ORDERABLES Final Resu lt NEEL [address] [facility] Department [place] [address] * (ABNORMAL) CBC with auto differential (09/30/2024 4:01 PM CDT) WBC 7.77 3.80 - 9.90 K/cumm Comment:Testing performed by : [address] [address] Hgb 14.5 13.0 - 17.5 g/dL NEEL Comment:Testing performed by : [address] [address] Hct 43.0 38.9 - 50.3 % NEEL Comment:Testing performed by : [address] [address] Plt 278 150 - 400 K/cumm NEEL Comment:Testing performed by : [address] [address] MPV 9.8 9.1 - 12.3 fL NEEL Comment:Testing performed by : [address] [address] RBC 5.18 4.30 - 5.80 M/cumm NEEL Comment:Testing performed by : [address] [address] MCV 83.0 81.3 - 96.4 fL NELE Comment:Testing performed by : [address] [address] MCH 28.0 27.1 - 33.3 pg NEEL SMITH Comment:Testing performed by : [address] [address] MCHC 33.7 32.3 - 35.7 g/dL NEEL SMITH Comment:Testing performed by : [address] [address] RDW CV 15.3(H) 11.1 - 14.9 % NEEL SMITH Comment:Testing performed by : [address] [address] RDW SD 46.4 35.7 - 48.1 fL NEEL SMITH Comment:Testing performed by : [address] [address] NRBC abs 0.00 0.00 - 0.01 K/cumm NEEL SMITH Comment:Testing performed by : [address] [address] Blood Venous blood specimen / Unknown 09/30/2024 4:01 PM CDT 09/30/2024 4:06 PM CDT [employer] LAB BLOOD ORDERABLES Final Resu lt Performing Organization Address City/[facility]/ZIP Co de Phone Number [address] [place] [address] * Lipase (09/30/2024 4:01 PM CDT) Lipase 51 10 - 99 Units/L Comment:Testing performed by : [address] [address] Blood Venous blood specimen / Unknown 09/30/2024 4:01 PM CDT 09/30/2024 4:06 PM CDT [employer] LAB BLOOD ORDERABLES Final Resu lt [address] [address] * Comprehensive metabolic panel (09/30/2024 4:01 PM CDT) Sodium 141 135 - 145 mmol/L Comment:Testing performed by : [address], [place]., [address] Potassium, pl 4.0 3.3 - 4.9 mmol/L NEEL Comment:Testing performed by : [address], [place]., [address] Chloride 106 97 - 110 mmol/L NEEL Comment:Testing performed by : [address], [place]., [address] CO2 24 22 - 32 mmol/L NEEL Comment:Testing performed by : [address], [place]., [address] Anion gap 11 2 - 15 mmol/L NEEL Comment:Testing performed by : [address], [place]., [address] BUN 9 6 - 25 mg/dL NEEL Comment:Testing performed by : [address], [place]., [address] Creatinine 1.00 0.80 - 1.30 mg/dL NEEL Comment:Testing performed by : [address], [place]., [address] Glucose 107 70 - 199 mg/dL [facility] Comment: Interpretive Data Fasting glucose >/= [...] was last revised 2022. Testing performed by: [address] [address] Calcium 9.6 8.5 - 10.3 mg/dL NEEL Comment:Testing performed by : [address], [place]., [address] Bilirubin, total 0.4 0.1 - 1.2 mg/dL NEEL Comment:Testing performed by : [address] [address] Protein, pl 7.1 6.5 - 8.5 g/dL NEEL Comment:Testing performed by : [address] [address] Albumin 4.3 3.5 - 5.0 g/dL NEEL Comment:Testing performed by : [address] [address] Alk phos 87 40 - 130 Units/L NEEL Comment:Testing performed by : [address] [address] ALT 25 7 - 55 Units/L NEEL Comment:Testing performed by : [address] [address] AST 25 10 - 50 Units/L NEEL Comment:Testing performed by : [address] [address] Blood 09/30/2024 4:01 PM CDT 09/30/2024 4:06 PM CDT us Radha Casas DO LAB BLOOD ORDERABLES Final Resu lt NEEL SMITH [address] [facility] Department [place] [address] * CT Abdomen Pelvis W Contrast (08/16/2024 4:01 AM CDT) Anatomical Region Laterality Modality Body N/A Computed Tomogra phy 08/16/2024 8:08 AM CDT Impressions 08/16/2024 8:36 AM CDT Markedly distended stomach with ingested contents without evidence of obstructing lesion. Preliminary results were given by the tele-radiologist electronic parts designer Dr. Olivera Dictated by: Mario Newsome MD [...] Preliminary results were given by the tele-radiologist electronic parts designer Dr. Olivera Dictated by: Mario Newsome MD [...] AM CDT 08/16/2024 4:15 AM CDT Ashlie Brugess MD LAB BLOOD ORDERABLES Final Result NEEL TRACYCH [address] [facility]. Department [place] [address] * (ABNORMAL) Differential, auto (08/16/2024 3:42 AM CDT) Neutrophil abs 14.88(H) 1.50 - 6.50 K/cumm Imm gran abs 0.10 0.00 - 0.10 K/cumm NEEL GUZMÁN Lymphocyte abs 1.94 0.80 - 3.30 K/cumm [facility] Monocyte abs 1.47(H) 0.20 - 0.80 K/cumm [facility] Eosinophil abs 0.16 0.00 - 0.50 K/cumm [facility] Basophil abs 0.09 0.00 - 0.10 K/cumm [facility] Neutrophil pct 79.8 % [facility] Comment: Interpretive Data Percent cell count reference ranges are not reported, since discordance with absolute values may lead to misinterpretation of CBC data. Current Interpretive Data was last revised on 2017. Imm gran pct 0.5 % NEEL [facility] Comment: Interpretive Data Percent cell count reference ranges are not reported, since discordance with absolute values may lead to misinterpretation of CBC data. Current Interpretive Data was last revised on 2017. Lymphocyte pct 10.4 % [facility] Comment: Interpretive Data Percent cell count reference ranges are not reported, since discordance with absolute values may lead to misinterpretation of CBC data. Current Interpretive Data was last revised on 2017. Monocyte pct 7.9 % NEEL [facility] Comment: Interpretive Data Percent cell count reference ranges are not reported, since discordance with absolute values may lead to misinterpretation of CBC data. Current Interpretive Data was last revised on 2017. Eosinophil pct 0.9 % NEEL [facility] Comment: Interpretive Data Percent cell count reference ranges are not reported, since discordance with absolute values may lead to misinterpretation of CBC data. Current Interpretive Data was last revised on 2017. Basophil pct 0.5 % NEEL [facility] Comment: Interpretive Data Percent cell count reference ranges are not reported, since discordance with absolute values may lead to misinterpretation of CBC data. Current Interpretive Data was last revised on 2017. Blood 08/16/2024 3:42 AM CDT 08/16/2024 4:15 AM CDT us Ashlie Burgess MD LAB BLOOD ORDERABLES Final Result [facility] [address] [facility] [address], [place] [id number] [phone] * (ABNORMAL) CBC with auto differential (08/16/2024 3:42 AM CDT) WBC 18.64(H) 3.80 - 9.90 K/cumm Hgb 14.6 13.0 - 17.5 g/dL [facility] Hct 43.6 38.9 - 50.3 % [facility] Plt 325 150 - 400 K[facility]umm [facility] MPV 10.0 9.1 - 12.3 fL [facility] RBC 5.23 4.30 - 5.80 M/cumm [facility] MCV 83.4 81.3 - 96.4 fL [facility] MCH 27.9 27.1 - 33.3 pg [facility] MCHC 33.5 32.3 - 35.7 g/dL [facility] RDW CV 15.9(H) 11.1 - 14.9 % [facility] RDW SD 48.6(H) 35.7 - 48.1 fL [facility] NRBC abs 0.00 0.00 - 0.01 K/cumm [facility] Blood Venous blood specimen / Unknown 08/16/2024 3:42 AM CDT 08/16/2024 4:15 AM CDT Ashlie Burgess MD LAB BLOOD ORDERABLES Final Result Performing Organization Address City/[facility]/ZIP Co de Phone Number [facility] [address] [employer]. [place] [address] * Lipase (08/16/2024 3:42 AM CDT) Pathologist [facility] Lipase 32 10 - 99 Units/L Blood Venous blood specimen / Unknown 08/16/2024 3:42 AM CDT 08/16/2024 4:15 AM CDT Ashlie Burgess MD LAB BLOOD ORDERABLES Final Result [facility] [address] [employer] [place] [address] * Comprehensive metabolic panel (08/16/2024 3:42 AM [...] MD LAB BLOOD ORDERABLES Final Result [facility] [address] [facility]. [place] [place] [address] * Sepsis Lactate w/ Reflex (08/13/2024 5:52 PM CDT) Sepsis Lactate 1.1 0.7 - 2.0 mmol/L Blood 08/13/2024 5:52 PM CDT 08/13/2024 5:58 PM CDT us Crista Bower MD LAB BLOOD ORDERABLES Final Result Performing Organization Address [facility]/ZIP Co de Phone Number NEEL [facility] [address] [facility] [place] [address] * eGFR (08/13/2024 4:29 PM CDT) eGFR [...] MD LAB BLOOD ORDERABLES Final Result NEEL [facility] [address] [facility] [place] [address] * (ABNORMAL) Differential, auto (08/13/2024 4:29 PM CDT) Pathologist [facility] Neutrophil abs 15.65(H) 1.50 - 6.50 K/cumm Imm gran abs 0.09 0.00 - 0.10 K/cumm [facility] Lymphocyte abs 1.38 0.80 - 3.30 K/cumm [facility] Monocyte abs 1.33(H) 0.20 - 0.80 K/cumm [facility] Eosinophil abs 0.09 0.00 - 0.50 K/cumm [facility] Basophil abs 0.05 0.00 - 0.10 K/cumm [facility] Neutrophil pct 84.1 % [facility] Comment: Interpretive Data Percent cell count reference ranges are not reported, since discordance with absolute values may lead to misinterpretation of CBC data. Current Interpretive Data was last revised on 2017. Imm gran pct 0.5 % [facility] Comment: Interpretive Data Percent cell count reference ranges are not reported, since discordance with absolute values may lead to misinterpretation of CBC data. Current Interpretive Data was last revised on 2017. Lymphocyte pct 7.4 % [facility] Comment: Interpretive Data Percent cell count reference ranges are not reported, since discordance with absolute values may lead to misinterpretation of CBC data. Current Interpretive Data was last revised on 2017. Monocyte pct 7.2 % [facility] Comment: Interpretive Data Percent cell count reference ranges are not reported, since discordance with absolute values may lead to misinterpretation of CBC data. Current Interpretive Data was last revised on 2017. Eosinophil pct 0.5 % [facility] Comment: Interpretive Data Percent cell count reference ranges are not reported, since discordance with absolute values may lead to misinterpretation of CBC data. Current Interpretive Data was last revised on 2017. Basophil pct 0.3 % [facility] Comment: Interpretive Data Percent cell count reference ranges are not reported, since discordance with absolute values may lead to misinterpretation of CBC data. Current Interpretive Data was last revised on 2017. Blood 08/13/2024 4:29 PM CDT 08/13/2024 4:38 PM CDT us Crista Bower MD LAB BLOOD ORDERABLES Final Result [facility] [address] [place] [address] * (ABNORMAL) CBC with auto differential (08/13/2024 4:29 PM CDT) Pathologist [facility] WBC 18.59(H) 3.80 - 9.90 K/cumm Hgb 14.6 13.0 - 17.5 g/dL [facility] Hct 43.7 38.9 - 50.3 % [facility] Plt 335 150 - 400 K/cumm [facility] MPV 10.0 9.1 - 12.3 fL [facility] RBC 5.15 4.30 - 5.80 M/cumm [facility] MCV 84.9 81.3 - 96.4 fL [facility] MCH 28.3 27.1 - 33.3 pg [facility] MCHC 33.4 32.3 - 35.7 g/dL [facility] RDW CV 15.9(H) 11.1 - 14.9 % [facility] RDW SD 49.5(H) 35.7 - 48.1 fL [facility] NRBC abs 0.00 0.00 - 0.01 K/cumm [facility] Blood Venous blood specimen / Unknown 08/13/2024 4:29 PM CDT 08/13/2024 4:38 PM CDT us Crista Bower MD LAB BLOOD ORDERABLES Final Result [facility] [address] [place] [address] * Lipase (08/13/2024 4:29 PM CDT) Lipase 20 10 - 99 Units/L Blood Venous blood specimen / Unknown 08/13/2024 4:29 PM CDT 08/13/2024 4:38 PM CDT us Crista Bower MD LAB BLOOD ORDERABLES Final Result [facility] [address] Department [place] [address] * (ABNORMAL) Comprehensive metabolic panel (08/13/2024 4:29 PM CDT) Sodium 138 135 - 145 mmol/L Potassium, pl 4.0 3.3 - 4.9 mmol/L [facility] Chloride 104 97 - 110 mmol/L [facility] CO2 21(L) 22 - 32 mmol/L [facility] Anion gap 13 2 - 15 mmol/L [facility] BUN 8 6 - 25 mg/dL [facility] Creatinine 0.91 0.80 - 1.30 mg/dL [facility] Glucose 118 70 - 199 mg/dL [facility] Comment: Interpretive Data Fasting glucose >/= 126 [...] 2022. Calcium 9.3 8.5 - 10.3 mg/dL [facility] Bilirubin, total 0.4 0.1 - 1.2 mg/dL [facility] Protein, pl 7.2 6.5 - 8.5 g/dL [facility] Albumin 4.1 3.5 - 5.0 g/dL [facility] Alk phos 86 40 - 130 Units/L [facility] ALT 25 7 - 55 Units/L [facility] AST 22 10 - 50 Units/L [facility] Blood 08/13/2024 4:29 PM CDT 08/13/2024 4:38 PM CDT us Crista Bower MD LAB BLOOD ORDERABLES Final Result Performing Organization Address [facility] Co de Phone Number [facility] [address] Department of Laboratories [place], [place] [id number] * eGFR (08/12/2024 10:58 AM CDT) eGFR [...] ORDERABLES Final R esult Performing Organization Address [facility]/ZIP Co de Phone Number [facility] [address] Department of Laboratories [place], [place] [id number] * (ABNORMAL) CBC without differential (08/12/2024 10:58 AM CDT) WBC 7.15 3.80 - 9.90 K/cumm Hgb 13.4 13.0 - 17.5 g/dL [facility] Hct 41.3 38.9 - 50.3 % [facility] Plt 301 150 - 400 K/cumm [facility] MPV 10.1 9.1 - 12.3 fL [facility] RBC 4.81 4.30 - 5.80 M/cumm [facility] MCV 85.9 81.3 - 96.4 fL [facility] MCH 27.9 27.1 - 33.3 pg [facility] MCHC 32.4 32.3 - 35.7 g/dL [facility] RDW CV 16.1(H) 11.1 - 14.9 % [facility] RDW SD 50.2(H) 35.7 - 48.1 fL [facility] NRBC abs 0.00 0.00 - 0.01 K/cumm [facility] Blood 08/12/2024 10:5 8 AM CDT 08/12/2024 11:33 AM CDT us Reinaldo Avitia MD LAB BLOOD ORDERABLES Final R esult [facility] [address] Department [place] [address] * (ABNORMAL) Basic metabolic panel (08/12/2024 10:58 AM CDT) Sodium 139 135 - 145 mmol/L Potassium, pl 4.3 3.3 - 4.9 mmol/L [facility] Chloride 105 97 - 110 mmol/L [facility] CO2 21(L) 22 - 32 mmol/L [facility] Anion gap 13 2 - 15 mmol/L [facility] BUN 6 6 - 25 mg/dL [facility] Creatinine 0.92 0.80 - 1.30 mg/dL [facility] Glucose 130 70 - 199 mg/dL [facility] Comment: Interpretive Data Fasting glucose >/= 126 [...] 2022. Calcium 8.7 8.5 - 10.3 mg/dL [facility] Blood 08/12/2024 10:5 8 AM CDT 08/12/2024 11:33 AM CDT us Reinaldo Avitia MD LAB BLOOD ORDERABLES Final R esult [facility] [address] Department [place] [address] * EGD (08/11/2024 3:25 PM CDT) Anatomical Region Laterality Modality Other Narrative Procedure Note Georges Luna MD - 08/11/2024 3:25 PM CDT ENDOSCOPY LAB Patient Name: Donovan Bailey Procedure Date: 08/11/2024 3:25 PM Admit Type: Inpatient Room: [facility] 8 Date of : 1980 Instrument Name: [id number] [...] off. Call with questions Dr. Georges Luna Georgse Luna M.D. 08/11/2024 3:45:00 PM This document [...] DO LAB BLOOD ORDERABLES F inal Result [facility] [address] Department [place] [address] * (ABNORMAL) Differential, auto (08/11/2024 6:15 AM CDT) Neutrophil abs 2.30 1.50 - 6.50 K/cumm Imm gran abs 0.01 0.00 - 0.10 K/cumm [facility] Lymphocyte abs 3.06 0.80 - 3.30 K/cumm [facility] Monocyte abs 0.99(H) 0.20 - 0.80 K/cumm [facility] Eosinophil abs 0.24 0.00 - 0.50 K/cumm [facility] Basophil abs 0.06 0.00 - 0.10 K/cumm [facility] Neutrophil pct 34.5 % [facility] Comment: Interpretive Data Percent cell count reference ranges are not reported, since discordance with absolute values may lead to misinterpretation of CBC data. Current Interpretive Data was last revised on 2017. Imm gran pct 0.2 % [facility] Comment: Interpretive Data Percent cell count reference ranges are not reported, since discordance with absolute values may lead to misinterpretation of CBC data. Current Interpretive Data was last revised on 2017. Lymphocyte pct 45.9 % [facility] Comment: Interpretive Data Percent cell count reference ranges are not reported, since discordance with absolute values may lead to misinterpretation of CBC data. Current Interpretive Data was last revised on 2017. Monocyte pct 14.9 % [facility] Comment: Interpretive Data Percent cell count reference ranges are not reported, since discordance with absolute values may lead to misinterpretation of CBC data. Current Interpretive Data was last revised on 2017. Eosinophil pct 3.6 % [facility] Comment: Interpretive Data Percent cell count reference ranges are not reported, since discordance with absolute values may lead to misinterpretation of CBC data. Current Interpretive Data was last revised on 2017. Basophil pct 0.9 % [facility] Comment: Interpretive Data Percent cell count reference ranges are not reported, since discordance with absolute values may lead to misinterpretation of CBC data. Current Interpretive Data was last revised on 2017. Blood 08/11/2024 6:15 AM CDT 08/11/2024 6:54 AM CDT us Chris Villatoro DO LAB BLOOD ORDERABLES F inal Result [facility] [address] Department [place] [address] * (ABNORMAL) CBC with auto differential (08/11/2024 6:15 AM CDT) WBC 6.66 3.80 - 9.90 K/cumm Hgb 12.2(L) 13.0 - 17.5 g/dL [facility] Hct 37.8(L) 38.9 - 50.3 % [facility] Plt 274 150 - 400 K/cumm [facility] MPV 10.2 9.1 - 12.3 fL [facility] RBC 4.38 4.30 - 5.80 M/cumm [facility] MCV 86.3 81.3 - 96.4 fL [facility] MCH 27.9 27.1 - 33.3 pg [facility] MCHC 32.3 32.3 - 35.7 g/dL [facility] RDW CV 16.3(H) 11.1 - 14.9 % [facility] RDW SD 51.3(H) 35.7 - 48.1 fL [facility] NRBC abs 0.00 0.00 - 0.01 K/cumm [facility] Blood 08/11/2024 6:15 AM CDT 08/11/2024 6:54 AM CDT Chris Villatoro LAB BLOOD ORDERABLES F inal Result Performing Organization Address City/[facility]/ZIP Co de Phone Number [facility] [address] Department [place] [place] [address] * Magnesium (08/11/2024 6:15 AM CDT) [facility] Magnesium 2.2 1.4 - 2.5 mg/dL Blood 08/11/2024 6:15 AM CDT 08/11/2024 6:53 AM CDT Chris Villatoro LAB BLOOD ORDERABLES F inal Result Performing Organization Address [facility] de Phone Number [facility] [address] [place] [employer] [place] [address] * Basic metabolic panel (08/11/2024 6:15 AM CDT) Pathologist [facility] Sodium 139 135 - 145 mmol/L Potassium, pl 4.0 3.3 - 4.9 mmol/L [facility] Chloride 107 97 - 110 mmol/L [facility] CO2 24 22 - 32 mmol/L [facility] Anion gap 8 2 - 15 mmol/L [facility] BUN 6 6 - 25 mg/dL [facility] Creatinine 0.81 0.80 - 1.30 mg/dL [facility] Glucose 88 70 - 199 mg/dL [facility] Comment: Interpretive Data Fasting glucose >/= 126 [...] Calcium 8.5 8.5 - 10.3 mg/dL [facility] Blood 08/11/2024 6:15 AM CDT 08/11/2024 6:53 AM CDT us Chris Villatoro DO LAB BLOOD ORDERABLES F inal Result [facility] [address] Department [place] [address] * CT Abdomen Pelvis W Contrast (08/10/2024 [...] as above. For the purposes of quality tech, this study was initially interpreted by teleradiology. [...] as above. For the purposes of quality tech, this study was initially interpreted by teleradiology. [...] LAB BLOOD ORDERABLES Final R esult NEEL TURNER [address] Department [place] [address] * (ABNORMAL) Differential, auto (08/10/2024 3:54 AM CDT) Neutrophil abs 18.28(H) 1.50 - 6.50 K/cumm Imm gran abs 0.10 0.00 - 0.10 K/cumm [facility] Lymphocyte abs 1.52 0.80 - 3.30 K/cumm [facility] Monocyte abs 1.50(H) 0.20 - 0.80 K/cumm [facility] Eosinophil abs 0.12 0.00 - 0.50 K/cumm [facility] Basophil abs 0.08 0.00 - 0.10 K/cumm [facility] Neutrophil pct 84.6 % [facility] Comment: Interpretive Data Percent cell count reference ranges are not reported, since discordance with absolute values may lead to misinterpretation of CBC data. Current Interpretive Data was last revised on 2017. Imm gran pct 0.5 % [facility] Comment: Interpretive Data Percent cell count reference ranges are not reported, since discordance with absolute values may lead to misinterpretation of CBC data. Current Interpretive Data was last revised on 2017. Lymphocyte pct 7.0 % [facility] Comment: Interpretive Data Percent cell count reference ranges are not reported, since discordance with absolute values may lead to misinterpretation of CBC data. Current Interpretive Data was last revised on 2017. Monocyte pct 6.9 % [facility] Comment: Interpretive Data Percent cell count reference ranges are not reported, since discordance with absolute values may lead to misinterpretation of CBC data. Current Interpretive Data was last revised on 2017. Eosinophil pct 0.6 % [facility] Comment: Interpretive Data Percent cell count reference ranges are not reported, since discordance with absolute values may lead to misinterpretation of CBC data. Current Interpretive Data was last revised on 2017. Basophil pct 0.4 % [facility] Comment: Interpretive Data Percent cell count reference ranges are not reported, since discordance with absolute values may lead to misinterpretation of CBC data. Current Interpretive Data was last revised on 2017. Blood 08/10/2024 3:54 AM CDT 08/10/2024 4:06 AM CDT us Domenic Arias MD LAB BLOOD ORDERABLES Final R esult [facility] [address] [place] [address] * (ABNORMAL) CBC with auto differential (08/10/2024 3:54 AM CDT) [facility] WBC 21.60(H) 3.80 - 9.90 K/cumm Hgb 14.0 13.0 - 17.5 g/dL [facility] Hct 43.0 38.9 - 50.3 % [facility] Plt 333 150 - 400 K/cumm [facility] MPV 10.0 9.1 - 12.3 fL [facility] RBC 5.07 4.30 - 5.80 M/cumm [facility] MCV 84.8 81.3 - 96.4 fL [facility] MCH 27.6 27.1 - 33.3 pg [facility] MCHC 32.6 32.3 - 35.7 g/dL [facility] RDW CV 16.4(H) 11.1 - 14.9 % [facility] RDW SD 50.1(H) 35.7 - 48.1 fL [facility] NRBC abs 0.00 0.00 - 0.01 K/cumm [facility] Blood Venous blood specimen / Unknown 08/10/2024 3:54 AM CDT 08/10/2024 4:06 AM CDT Domenic Arias MD LAB BLOOD ORDERABLES Final R esult [facility] [address] [facility] [place] [address] * Lipase (08/10/2024 3:54 AM CDT) [facility] Lipase 27 10 - 99 Units/L Blood Venous blood specimen / Unknown 08/10/2024 3:54 AM CDT 08/10/2024 4:06 AM CDT Domenic Arias MD LAB BLOOD ORDERABLES Final R esult [facility] [address] Department [place] [address] * (ABNORMAL) Comprehensive metabolic panel (08/10/2024 3:54 AM CDT) Sodium 132(L) 135 - 145 mmol/L Potassium, pl 3.9 3.3 - 4.9 mmol/L [facility] Chloride 96(L) 97 - 110 mmol/L [facility] CO2 20(L) 22 - 32 mmol/L [facility] Anion gap 16(H) 2 - 15 mmol/L [facility] BUN 7 6 - 25 mg/dL [facility] Creatinine 0.95 0.80 - 1.30 mg/dL [facility] Glucose 124 70 - 199 mg/dL [facility] Comment: Interpretive Data Fasting glucose >/= 126 [...] 2022. Calcium 9.2 8.5 - 10.3 mg/dL [facility] Bilirubin, total 0.4 0.1 - 1.2 mg/dL [facility] Protein, pl 7.1 6.5 - 8.5 g/dL [facility] Albumin 4.5 3.5 - 5.0 g/dL [facility] Alk phos 81 40 - 130 Units/L [facility] ALT 23 7 - 55 Units/L [facility] AST 24 10 - 50 Units/L [facility] Comment:Slightly Hemolyzed S pecimen Blood 08/10/2024 3:54 AM CDT 08/10/2024 4:06 AM CDT us Domenic Arias MD LAB BLOOD ORDERABLES Final R esult [facility] [address] Department [place] [address] * eGFR (08/07/2024 3:20 AM CDT) Pathologist [facility] eGFR >90 >=60 mL/min/1. 73 m2 Comment: [...] MD LAB BLOOD ORDERABLES Fi nal Result [facility] [address] Department [place] [address] * (ABNORMAL) Differential, auto (08/07/2024 3:20 AM CDT) Pathologist [facility] Neutrophil abs 8.4(H) 1.5 - 6.5 K/cumm Imm gran abs 0.0 0.0 - 0.1 K/cumm [facility] Lymphocyte abs 1.5 0.8 - 3.3 K/cumm [facility] Monocyte abs 1.3(H) 0.2 - 0.8 K/cumm [facility] Eosinophil abs 0.1 0.0 - 0.5 K/cumm [facility] Basophil abs 0.1 0.0 - 0.1 K/cumm [facility] Neutrophil pct 74.1 % [facility] Comment: Interpretive Data Percent cell count reference ranges are not reported, since discordance with absolute values may lead to misinterpretation of CBC data. Current Interpretive Data was last revised on 2017. Imm gran pct 0.4 % [facility] Comment: Interpretive Data Percent cell count reference ranges are not reported, since discordance with absolute values may lead to misinterpretation of CBC data. Current Interpretive Data was last revised on 2017. Lymphocyte pct 13.4 % [facility] Comment: Interpretive Data Percent cell count reference ranges are not reported, since discordance with absolute values may lead to misinterpretation of CBC data. Current Interpretive Data was last revised on 2017. Monocyte pct 11.3 % [facility] Comment: Interpretive Data Percent cell count reference ranges are not reported, since discordance with absolute values may lead to misinterpretation of CBC data. Current Interpretive Data was last revised on 2017. Eosinophil pct 0.4 % [facility] Comment: Interpretive Data Percent cell count reference ranges are not reported, since discordance with absolute values may lead to misinterpretation of CBC data. Current Interpretive Data was last revised on 2017. Basophil pct 0.4 % [facility] Comment: Interpretive Data Percent cell count reference ranges are not reported, since discordance with absolute values may lead to misinterpretation of CBC data. Current Interpretive Data was last revised on 2017. Blood 08/07/2024 3:20 AM CDT 08/07/2024 3:44 AM CDT us Justice Patel MD LAB BLOOD ORDERABLES Fi nal Result [facility] [address] Department [place] [address] * (ABNORMAL) CBC with auto differential (08/07/2024 3:20 AM CDT) WBC 11.3(H) 3.8 - 9.9 K/cumm Hgb 12.9(L) 13.0 - 17.5 g/dL [facility] Hct 39.6 38.9 - 50.3 % [facility] Plt 294 150 - 400 K/cumm [facility] MPV 9.8 9.1 - 12.3 fL [facility] RBC 4.63 4.30 - 5.80 M/cumm [facility] MCV 85.5 81.3 - 96.4 fL [facility] MCH 27.9 27.1 - 33.3 pg [facility] MCHC 32.6 32.3 - 35.7 g/dL [facility] RDW CV 16.4(H) 11.1 - 14.9 % [facility] RDW SD 51.0(H) 35.7 - 48.1 fL [facility] NRBC abs 0.00 0.00 - 0.01 K/cumm [facility] Blood 08/07/2024 3:20 AM CDT 08/07/2024 3:44 AM CDT Justice Patel MD LAB BLOOD ORDERABLES Fi nal Result Performing Organization Address [facility] Co de Phone Number [facility] [address] [facility] [place] [address] * Lipase (08/07/2024 3:20 AM CDT) Pathologist [facility] Lipase 40 10 - 99 Units/L Blood 08/07/2024 3:20 AM CDT 08/07/2024 3:45 AM CDT Justice Patel MD LAB BLOOD ORDERABLES Fi nal Result Performing Organization Address [facility] Co de Phone Number [facility] [address] [facility] [place] [address] * (ABNORMAL) Comprehensive metabolic panel (08/07/2024 3:20 AM CDT) Pathologist [facility] Sodium 138 135 - 145 mmol/L Potassium, pl 3.9 3.3 - 4.9 mmol/L [facility] Chloride 103 97 - 110 mmol/L [facility] CO2 21(L) 22 - 32 mmol/L [facility] Anion gap 14 2 - 15 mmol/L [facility] BUN 9 6 - 25 mg/dL [facility] Creatinine 0.92 0.80 - 1.30 mg/dL [facility] Glucose 107 70 - 199 mg/dL [facility] Comment: Interpretive Data Fasting glucose >/= 126 [...] 2022. Calcium 8.8 8.5 - 10.3 mg/dL [facility] Bilirubin, total 0.6 0.1 - 1.2 mg/dL [facility] Protein, pl 6.3(L) 6.5 - 8.5 g/dL [facility] Albumin 4.1 3.5 - 5.0 g/dL [facility] Alk phos 74 40 - 130 Units/L [facility] ALT 23 7 - 55 Units/L [facility] AST 24 10 - 50 Units/L [facility] Comment:Slightly Hemolyzed S pecimen Blood 08/07/2024 3:20 AM CDT 08/07/2024 3:45 AM CDT us Justice Patel MD LAB BLOOD ORDERABLES Fi nal Result [facility] [address] Department [place] [address] * SCAN - RADIOLOGY/IMAGING (08/05/2024) Anatomical Region Laterality Modality Other us Provider Scanning Final Result * Urinalysis reflex to microscopic and culture Urine (08/03/2024 1:50 PM CDT) Color, ur Yellow Yellow Comment:Testing performed by : [address] [address] Clarity, ur Clear Clear NEEL Comment:Testing performed by : [address] [address] Specific gravity, ur 1.009 1.003 - 1.030 NEEL Comment:Testing performed by : [address] [address] pH, urine 7.0 NEEL Comment: Interpretive Data U rine pH is affected by diet, medications, systemic acid-base disturbances, and renal tubular function. pH may affect urinary stone formation. For example, urine pH below 6.0 may help reduce the tendency for calcium phosphate stones and pH greater than 6.0 may reduce the tendency for uric acid stone formation. Source: [facility] [employer] Current Interpretive Data was last revised on 2017 Testing performed by: [address] [address] Protein, ur ql Negative Negative NEEL Comment:Testing performed by : [address] [address] Glucose, ur ql Negative Negative NEEL Comment:Testing performed by : [address] [address] Ketones, ur Negative Negative NEEL Comment:Testing performed by : [address] [address] Bilirubin, ur Negative Negative NEEL Comment:Testing performed by : [address] [address] Blood, ur Negative Negative NEEL Comment:Testing performed by : [address] [address] Urobilinogen, ur <2.0 <2.0 mg/dL NEEL Comment:Testing performed by : [address] [address] Nitrite, ur Negative Negative NEEL Comment:Testing performed by : [address] [address] Leukocyte esterase, ur Negative Negative NEEL Comment:Testing performed by : [address] [place] [address] UA reflex comment Reflex conditions for microscopic UA and culture not met. NEEL Comment:Testing performed by : [address] [address] Urine 08/03/2024 1:50 PM CDT 08/03/2024 1:53 PM CDT Freddy Yao DO LAB MICROBIOLOGY - GENERAL ORDERABLES Final Result Performing Organization Address [facility] Co de Phone Number [facility] [address] [facility] [place] [address] * eGFR (08/03/2024 1:45 PM CDT) eGFR [...] was last reviewed 2021. Testing performed by: [facility], [address] [place] [address]., [address] Blood 08/03/2024 1:45 PM CDT 08/03/2024 1:53 PM CDT Freddy Yao DO LAB BLOOD ORDERABLES Final Result Performing Organization Address City/[facility]/ZIP Co de Phone Number [facility] [address] [facility] Department [place] [address] * (ABNORMAL) Differential, auto (08/03/2024 1:45 PM CDT) Neutrophil abs 7.8(H) 1.5 - 6.5 K/cumm Comment:Testing performed by : [address] [address] Imm gran abs 0.1 0.0 - 0.1 K/cumm NEEL Comment:Testing performed by : [address] [address] Lymphocyte abs 2.5 0.8 - 3.3 K/cumm NEEL Comment:Testing performed by : [address] [address] Monocyte abs 1.4(H) 0.2 - 0.8 K/cumm NEEL Comment:Testing performed by : [address] [address] Eosinophil abs 0.1 0.0 - 0.5 K/cumm [facility] Comment:Testing performed by : [address] [address] Basophil abs 0.1 0.0 - 0.1 K/cumm [facility] Comment:Testing performed by : [address] [address] Neutrophil pct 65.5 % [facility] Comment: Interpretive Data Percent cell count reference ranges are not reported, since discordance with absolute values may lead to misinterpretation of CBC data. Current Interpretive Data was last revised on 2017. Testing performed by: [address] [address] Imm gran pct 0.5 % [facility] Comment: Interpretive Data Percent cell count reference ranges are not reported, since discordance with absolute values may lead to misinterpretation of CBC data. Current Interpretive Data was last revised on 2017. Testing performed by: [address] [address] Lymphocyte pct 21.0 % [facility] Comment: Interpretive Data Percent cell count reference ranges are not reported, since discordance with absolute values may lead to misinterpretation of CBC data. Current Interpretive Data was last revised on 2017. Testing performed by: [address] [address] Monocyte pct 11.6 % NEEL Comment: Interpretive Data Percent cell count reference ranges are not reported, since discordance with absolute values may lead to misinterpretation of CBC data. Current Interpretive Data was last revised on 2017. Testing performed by: [address] [address] Eosinophil pct 0.8 % NEEL Comment: Interpretive Data Percent cell count reference ranges are not reported, since discordance with absolute values may lead to misinterpretation of CBC data. Current Interpretive Data was last revised on 2017. Testing performed by: [address] [address] Basophil pct 0.6 % NEEL Comment: Interpretive Data Percent cell count reference ranges are not reported, since discordance with absolute values may lead to misinterpretation of CBC data. Current Interpretive Data was last revised on 2017. Testing performed by: [address] [address] Blood 08/03/2024 1:45 PM CDT 08/03/2024 1:53 PM CDT us Freddy Yao DO LAB BLOOD ORDERABLES Final Result [facility] [address] [facility] Department of Laboratories [place], [place] [id number] * (ABNORMAL) CBC with auto differential (08/03/2024 1:45 PM CDT) WBC 11.9(H) 3.8 - 9.9 K/cumm Comment:Testing performed by : [address] [address] Hgb 13.3 13.0 - 17.5 g/dL NEEL Comment:Testing performed by : [address] [address] Hct 40.4 38.9 - 50.3 % NEEL SMITH Comment:Testing performed by : [address] [address] Plt 333 150 - 400 K/cumm NEEL SMITH Comment:Testing performed by : [address] [address] MPV 10.3 9.1 - 12.3 fL NEEL SMITH Comment:Testing performed by : [address] [address] RBC 4.81 4.30 - 5.80 M/cumm NEEL SMITH Comment:Testing performed by : [address] [address] MCV 84.0 81.3 - 96.4 fL NEEL SMITH Comment:Testing performed by : [address] [address] MCH 27.7 27.1 - 33.3 pg NEEL SMITH Comment:Testing performed by : [address] [address] MCHC 32.9 32.3 - 35.7 g/dL NEEL SMITH Comment:Testing performed by : [address] [address] RDW CV 16.4(H) 11.1 - 14.9 % NEEL SMITH Comment:Testing performed by : [address] [address] RDW SD 50.0(H) 35.7 - 48.1 fL NEEL SMITH Comment:Testing performed by : [address] [address] NRBC abs 0.00 0.00 - 0.01 K/cumm NEEL SMITH Comment:Testing performed by : [address] [address] Blood Venous blood specimen / Unknown 08/03/2024 1:45 PM CDT 08/03/2024 1:53 PM CDT us Freddy Yao DO LAB BLOOD ORDERABLES Final Result NEEL [address] [facility] Department [place] [address] * Lipase (08/03/2024 1:45 PM CDT) Pathologist [facility] Lipase 58 10 - 99 Units/L Comment:Testing performed by : [address] [address] Blood Venous blood specimen / Unknown 08/03/2024 1:45 PM CDT 08/03/2024 1:53 PM CDT Freddy Yao DO LAB BLOOD ORDERABLES Final Result [facility] [address] [facility] Department [place] [address] * Comprehensive metabolic panel (08/03/2024 1:45 PM CDT) Pathologist [facility] Sodium 142 135 - 145 mmol/L Comment:Testing performed by : [address] [address] Potassium, pl 3.9 3.3 - 4.9 mmol/L NEEL Comment:Testing performed by : [address] [address] Chloride 108 97 - 110 mmol/L NEEL Comment:Testing performed by : [address] [address] CO2 23 22 - 32 mmol/L NEEL Comment:Testing performed by : [address] [address] Anion gap 11 2 - 15 mmol/L NEEL Comment:Testing performed by : [address] [address] BUN 9 6 - 25 mg/dL NEEL Comment:Testing performed by : [address] [address] Creatinine 0.90 0.80 - 1.30 mg/dL NEEL Comment:Testing performed by : [address] [address] Glucose 107 70 - 199 mg/dL NEEL [...] was last revised 2022. Testing performed by: [address] [address] Calcium 9.4 8.5 - 10.3 mg/dL NEEL Comment:Testing performed by : [address] [address] Bilirubin, total 0.3 0.1 - 1.2 mg/dL NEEL Comment:Testing performed by : [address] [address] Protein, pl 7.1 6.5 - 8.5 g/dL NEEL Comment:Testing performed by : [address] [address] Albumin 4.3 3.5 - 5.0 g/dL NEEL Comment:Testing performed by : [address] [address] Alk phos 80 40 - 130 Units/L NEEL Comment:Testing performed by : [address] [address] ALT 23 7 - 55 Units/L NEEL Comment:Testing performed by : [address] [address] AST 32 10 - 50 Units/L NEEL Comment:Testing performed by : [address] [address] Blood 08/03/2024 1:45 PM CDT 08/03/2024 1:53 PM CDT us Freddy Yao DO LAB BLOOD ORDERABLES Final Result NEEL [address] [facility] Department [place] [address] * CT Abdomen Pelvis W Contrast (08/02/2024 [...] Priti Salmeron M.D. TW: JENNA Report ID: [id number] Reading Location: [id number] Procedure Note Priti Salmeron MD - 08/02/2024 [...] Priti Salmeron M.D. TW: JENNA Report ID: [id number] Reading Location: [id number] PROCEDURES Final Result * (ABNORMAL) Urinalysis reflex to microscopic and culture Urine (08/02/2024 8:48 AM CDT) Color, ur Yellow Yellow Comment:Testing performed by : [facility], [address] [place] [address]., [address] Clarity, ur Clear Clear NEEL Comment:Testing performed by : [address] [address] Specific gravity, ur 1.025 1.003 - 1.030 NEEL Comment:Testing performed by : [facility], [address] [place] [address], [place]., [address] pH, urine 8.0 NEEL Comment: Interpretive Data U rine pH is affected by diet, medications, systemic acid-base disturbances, and renal tubular function. pH may affect urinary stone formation. For example, urine pH below 6.0 may help reduce the tendency for calcium phosphate stones and pH greater than 6.0 may reduce the tendency for uric acid stone formation. Source: [facility] [employer] Current Interpretive Data was last revised on 2017 Testing performed by: [facility], [address] [place] [address], [place]., [address] Protein, ur ql 1+(A) Negative NEEL Comment:Testing performed by : [address], [place]., [address] Glucose, ur ql Trace(A) Negative NEEL Comment:Testing performed by : [address] [address] Ketones, ur 2+(A) Negative NEEL Comment:Testing performed by : [address], [place]., [address] Bilirubin, ur Negative Negative NEEL Comment:Testing performed by : [address], [place]., [address] Blood, ur Negative Negative NEEL Comment:Testing performed by : [address], [place]., [address] Urobilinogen, ur <2.0 <2.0 mg/dL NEEL Comment:Testing performed by : [address] [address] Nitrite, ur Negative Negative NEEL Comment:Testing performed by : [address], [place]., [address] Leukocyte esterase, ur Negative Negative NEEL Comment:Testing performed by : [address] [address] UA reflex comment Reflex to microscopic UA will be performed. NEEL Comment:Testing performed by : [address], [place]., [address] Urine 08/02/2024 8:48 AM CDT 08/02/2024 8:54 AM CDT Freddy Yao DO LAB MICROBIOLOGY - GENERAL ORDERABLES Final Result Performing Organization Address [facility] de Phone Number NEEL [facility] [place] [address] * (ABNORMAL) Urinalysis, microscopic only (08/02/2024 8:48 AM CDT) WBC, ur 0-5 0 - 5 /HPF Comment:Testing performed by : [facility], [address] [place] [address]., [address] RBC, ur 0-2 0 - 2 /HPF NEEL Comment:Testing performed by : [address] [address] Epithelial cells, squamous, ur 1-5 0 - 5 /HPF NEEL Comment:Testing performed by : [address] [address] Mucous, ur Present(A) NEEL Comment:Testing performed by : [address] [address] Culture Reflex Comment Reflex conditions for urine culture (WBC >10) not met. NEEL Comment:Testing performed by : [address] [address] Urine 08/02/2024 8:48 AM CDT 08/02/2024 8:54 AM CDT Freddy Yao DO LAB URINE ORDERABLES Final Result Performing Organization Address [facility] [facility] de Phone Number NEEL [address] [facility] [place] [address] * eGFR (08/02/2024 8:43 AM CDT) Pathologist [facility] eGFR >90 >=60 mL/min/1. 73 m2 Comment: [...] was last reviewed 2021. Testing performed by: [address] [address] Blood 08/02/2024 8:43 AM CDT 08/02/2024 8:53 AM CDT Freddy Yao DO LAB BLOOD ORDERABLES Final Result NEEL [facility]5 [facility] Department [place] [address] * (ABNORMAL) Differential, auto (08/02/2024 8:43 AM CDT) Neutrophil abs 12.1(H) 1.5 - 6.5 K/cumm Comment:Testing performed by : [address] [address] Imm gran abs 0.1 0.0 - 0.1 K/cumm NEEL Comment:Testing performed by : [address] [address] Lymphocyte abs 0.9 0.8 - 3.3 K/cumm NEEL Comment:Testing performed by : [address] [address] Monocyte abs 0.7 0.2 - 0.8 K/cumm NEEL Comment:Testing performed by : [address] [address] Eosinophil abs 0.0 0.0 - 0.5 K/cumm NEEL Comment:Testing performed by : [address] [address] Basophil abs 0.0 0.0 - 0.1 K/cumm NEEL Comment:Testing performed by : [address] [address] Neutrophil pct 88.2 % NEEL Comment: Interpretive Data Percent cell count reference ranges are not reported, since discordance with absolute values may lead to misinterpretation of CBC data. Current Interpretive Data was last revised on 2017. Testing performed by: [address] [address] Imm gran pct 0.4 % NEEL Comment: Interpretive Data Percent cell count reference ranges are not reported, since discordance with absolute values may lead to misinterpretation of CBC data. Current Interpretive Data was last revised on 2017. Testing performed by: [address] [address] Lymphocyte pct 6.6 % NEEL Comment: Interpretive Data Percent cell count reference ranges are not reported, since discordance with absolute values may lead to misinterpretation of CBC data. Current Interpretive Data was last revised on 2017. Testing performed by: [address] [address] Monocyte pct 4.7 % NEEL Comment: Interpretive Data Percent cell count reference ranges are not reported, since discordance with absolute values may lead to misinterpretation of CBC data. Current Interpretive Data was last revised on 2017. Testing performed by: [address] [address] Eosinophil pct 0.0 % NEEL Comment: Interpretive Data Percent cell count reference ranges are not reported, since discordance with absolute values may lead to misinterpretation of CBC data. Current Interpretive Data was last revised on 2017. Testing performed by: [address] [address] Basophil pct 0.1 % NEEL Comment: Interpretive Data Percent cell count reference ranges are not reported, since discordance with absolute values may lead to misinterpretation of CBC data. Current Interpretive Data was last revised on 2017. Testing performed by: [address] [address] Blood 08/02/2024 8:43 AM CDT 08/02/2024 8:53 AM CDT Freddy Yao DO LAB BLOOD ORDERABLES Final Result [facility] [address] [facility] Department [place] [address] * (ABNORMAL) CBC with auto differential (08/02/2024 8:43 AM CDT) WBC 13.7(H) 3.8 - 9.9 K/cumm Comment:Testing performed by : [address] [address] Hgb 12.9(L) 13.0 - 17.5 g/dL NEEL Comment:Testing performed by : [address] [address] Hct 38.3(L) 38.9 - 50.3 % NEEL Comment:Testing performed by : [address] [address] Plt 310 150 - 400 K/cumm NEEL Comment:Testing performed by : [address] [address] MPV 9.9 9.1 - 12.3 fL NEEL Comment:Testing performed by : [address] [address] RBC 4.63 4.30 - 5.80 M/cumm NEEL Comment:Testing performed by : [address] [address] MCV 82.7 81.3 - 96.4 fL NEEL Comment:Testing performed by : [address] [address] MCH 27.9 27.1 - 33.3 pg NEEL Comment:Testing performed by : [address] [address] MCHC 33.7 32.3 - 35.7 g/dL NEEL Comment:Testing performed by : [address] [address] RDW CV 15.9(H) 11.1 - 14.9 % NEEL SMITH Comment:Testing performed by : [address] [address] RDW SD 48.1 35.7 - 48.1 fL NEEL Comment:Testing performed by : [address] [address] NRBC abs 0.00 0.00 - 0.01 K/cumm NEEL Comment:Testing performed by : [address] [address] Blood Venous blood specimen / Unknown 08/02/2024 8:43 AM CDT 08/02/2024 8:53 AM CDT Freddy Yao DO LAB BLOOD ORDERABLES Final Result Performing Organization Address City/[facility]/ZIP Co de Phone Number [address] [place] [address] * Lipase (08/02/2024 8:43 AM CDT) Pathologist [facility] Lipase 28 10 - 99 Units/L Comment:Testing performed by : [address] [address] Blood Venous blood specimen / Unknown 08/02/2024 8:43 AM CDT 08/02/2024 8:53 AM CDT Freddy Yao DO LAB BLOOD ORDERABLES Final Result [address] [address] * Comprehensive metabolic panel (08/02/2024 8:43 AM CDT) Sodium 143 135 - 145 mmol/L Comment:Testing performed by : [address] [address] Potassium, pl 3.9 3.3 - 4.9 mmol/L NEEL Comment:Testing performed by : [address], [place]., [address] Chloride 107 97 - 110 mmol/L NEEL Comment:Testing performed by : [address], [place]., [address] CO2 22 22 - 32 mmol/L NEEL Comment:Testing performed by : [address], [place]., [address] Anion gap 14 2 - 15 mmol/L NEEL Comment:Testing performed by : [address], [place]., [address] BUN 9 6 - 25 mg/dL [facility] Comment:Testing performed by : [address], [place]., [address] Creatinine 0.90 0.80 - 1.30 mg/dL NEEL Comment:Testing performed by : [address], [place]., [address] Glucose 161 70 - 199 mg/dL [facility] Comment: Interpretive Data Fasting glucose >/= [...] was last revised 2022. Testing performed by: [address] [address] Calcium 9.0 8.5 - 10.3 mg/dL [facility] Comment:Testing performed by : [address] [address] Bilirubin, total 0.5 0.1 - 1.2 mg/dL NEEL Comment:Testing performed by : [address], [place]., [address] Protein, pl 7.1 6.5 - 8.5 g/dL NEEL Comment:Testing performed by : [address], [facility] [place] [address] Albumin 4.3 3.5 - 5.0 g/dL NEEL SMITH Comment:Testing performed by : [address] [address] Alk phos 81 40 - 130 Units/L NEEL SMITH Comment:Testing performed by : [address] [address] ALT 20 7 - 55 Units/L NEEL SMITH Comment:Testing performed by : [address] [address] AST 26 10 - 50 Units/L NEEL Comment:Testing performed by : [address] [address] Blood 08/02/2024 8:43 AM CDT 08/02/2024 8:53 AM CDT Freddy Yao DO LAB BLOOD ORDERABLES Final Result Performing Organization Address City/State/[facility] Co de Phone Number NEEL [address] [facility] Department [place] [address] from Last 3 Months Insurance [facility] [place] [address] [place] [address] [place] [facility] Advance Directives For more information, please contact: [phone] * Full Code (Latest Code Status on [...] 8:00 AM 06/30/2022 5:06 PM Care Teams Photographic Printer Relationship Specialty Start Date End Date Td Lopez MD [address] [facility] [address] [place] [address] PCP - General Family Medicine 11/09/20 Angie Woodard MD [address] [facility] [address] [place] [address] Consulting Physician Gastroenterology 07/17/21 Vimal Woodruff MD [address] [facility] [address] [place] [address] Consulting Physician Gastroenterology 02/10/22
--- OUTSIDE RECORDS SUMMARY | 2024-10-15 11:11 | XMS_ITS | Clinical Summary ---
Author Organization [facility] Address [address] [place] [address] Care Team Providers Care Agency Service Coordinator Name Role Phone Alee Zhao MD Primary Care Provider [phone] Source Comments [facility],non-owned Affiliates and Associated Physician Practices is amultiple site organization consisting of ambulatory clinics and hospital sitesin [place], [place], [place] and [place]. This disclosure is being madepursuant to the Care Everywhere program and may not contain all information available regarding this patient. Last updated 18.[facility] Allergies Active Allergy Reactions Criticality Noted Date [...] on file Legal Sex Male 7:46 PM LIBRARY CATALOGING TECHNICIAN Gender Identity Not on file Sexual Orientation Not on file Last Filed Vital Signs Vital Sign Reading Time Taken Comments Blood Pressure 120/71 03/17/2019 5:03 PM LIBRARY CATALOGING TECHNICIAN Pulse 75 03/17/2019 5:03 PM LIBRARY CATALOGING TECHNICIAN Temperature 36.9 C (98.4 F) 03/17/2019 2:00 PM LIBRARY CATALOGING TECHNICIAN Respiratory Rate 17 03/17/2019 5:03 PM LIBRARY CATALOGING TECHNICIAN Oxygen Saturation 99% 03/17/2019 5:03 PM LIBRARY CATALOGING TECHNICIAN Inhaled Oxygen Concentration - - Weight 77.1 kg (170 lb) 03/17/2019 2:00 PM LIBRARY CATALOGING TECHNICIAN Height 177.8 cm (5' 10) 03/17/2019 2:00 PM LIBRARY CATALOGING TECHNICIAN Body Mass Index 24.39 03/17/2019 2:00 PM LIBRARY CATALOGING TECHNICIAN Plan of Treatment Health Maintenance Due [...] RFLX NAAT QUANT STAT 03/27/2018 9:12 PM LIBRARY CATALOGING TECHNICIAN HIV-1 HIV-2 ANTIGEN/ANTIBODY STAT 03/27/2018 9:12 PM LIBRARY CATALOGING TECHNICIAN from Last 3 Months or Most Recently Relevant to Health Maintenance Results * HIV-1 HIV-2 ANTIGEN/ANTIBODY (03/27/2018 9:12 PM LIBRARY CATALOGING TECHNICIAN) HIV Antigen/Antibod y 1 & 2 Non-reacti ve Non-react nemesio 03/27/2018 10:17 PM LIBRARY CATALOGING TECHNICIAN [facility] Comment: Neither HIV-1 p24 Antigen nor HIV-1/HIV-2 Antibodies are detected. Blood BLOOD SPECIMEN / Unknown Venipuncture / Unknown 03/27/2018 9:12 PM LIBRARY CATALOGING TECHNICIAN 03/27/2018 9:21 PM LIBRARY CATALOGING TECHNICIAN us Davi Patrick MD LAB - HEMATOLOGY ORDERABLES Fi nal Result Performing Organization Address [facility] Co de Phone Number [address] [phone] * HEPATITIS C AB SCREEN RFLX NAAT QUANT (03/27/2018 9:12 PM LIBRARY CATALOGING TECHNICIAN) Hepatitis C Antibody Non-react nemesio Non-reac tive 03/27/2018 10:20 PM LIBRARY CATALOGING TECHNICIAN [facility] Comment: Hepatitis C Antibody screen [...] Unknown Venipuncture / Unknown 03/27/2018 9:12 PM LIBRARY CATALOGING TECHNICIAN 03/27/2018 9:21 PM LIBRARY CATALOGING TECHNICIAN us Davi Patrick MD LAB - CHEMISTRY ORDERABLES Fin al Result Performing Organization Address [facility] Co de Phone Number [address] [phone] from Last 3 Months or Most Recently Relevant to Health Maintenance Insurance [facility] Care Teams Agency Service Coordinator Relationship Specialty Start Date End Date Alee Zhao MD [address] [place] [phone] PCP - General Family Medicine 03/25/18
[2024-10-15 11:15] VITALS: BP 151/103; PULSE 85; RESP 20; TEMP 36.7; O2SAT 96
--- NOTE | 2024-10-15 11:30 | ED.GENADULT ---
HPI - General Adult General Chief complaint: Abdominal Pain Stated complaint: abdominal pain Time Seen by Provider: 10/15/24 11:10 History of Present Illness HPI narrative: 44-year-old male presents to the emergency department for evaluation for abdominal pain reminiscent of his chronic pancreatitis. Patient states he just had an episode of pancreatitis a few days ago and was seen at [facility] and diagnosed with inflammation. Patient was treated emergency department discharged home. Patient is uncomfortable appearing at time of evaluation. Patient states he does not drink alcohol since 2011. Patient states he very rarely uses any THC. Related Data Home Medications ?Medication ?Instructions ?Recorded ?Confirmed ?Last Taken ?Type apixaban 5 mg tablet (Eliquis) 5 mg PO BID 04/05/23 04/05/23 Unknown History dicyclomine 20 mg tablet 20 mg PO BID 04/05/23 04/05/23 Unknown History Allergies Allergy/AdvReac Type Severity Reaction Status Date / Time metoclopramide Allergy Unknown Muscle Verified 10/10/24 22:09 Spasms haloperidol (From Haldol) AdvReac Mild Muscle Verified 10/10/24 22:09 Spasms doxycycline AdvReac Unknown Gastrointestinal Verified 10/10/24 22:09 Upset sulfamethoxazole AdvReac Unknown Gastrointestinal Verified 10/10/24 22:09 Upset trimethoprim AdvReac Unknown Gastrointestinal Verified 10/10/24 22:09 Upset prochlorperazine (From AdvReac Muscle Verified 10/10/24 22:09 Compazine) Spasms Sulfa (Sulfonamide AdvReac Gastrointestinal Verified 10/10/24 22:09 Antibiotics) Upset Review of Systems Review of Systems: All systems reviewed & are unremarkable except as noted in HPI and below PMFSH Past Medical History Medical History Kidney infarction Chronic pancreatitis Cyclical vomiting Anxiety Depression Kidney stones Hypertension GERD (gastroesophageal reflux disease) Cyclic vomiting syndrome IBD (inflammatory bowel disease) Gastroenteritis Pancreatitis Colitis Surgical History Surgical History Hx of cholecystectomy Family History Family History Grandparent Acute myocardial infarction Social History Social History Smoking packs per day: 1 Smoking cigarettes per day: 20.0 Years smoked: 20 Smoking pack-years: 20.00 Smoking status: Current every day smoker Tobacco type: cigarettes Alcohol intake: current Drinks per week: 3 Substance use: current Substance use type: marijuana Last use: PROBABLY ABOUT A WEEK AGOago Lack of Transportation: No Lack of Food: Never True Current Housing: I Have Housing Concerned About Future Housing: No Difficulty Paying Gas/Electric Bills: No Difficulty Paying for Meds: No Currently Unemployed: No Education: High School Diploma/GED Difficulty w/ Childcare or Family Care: No Living arrangements: alone Gender identity (if verbalized by the patient): Male Sexual Orientation (if Verbalized by the Patient): Straight or Heterosexual Spiritual care concerns: No Exam Narrative: APPEARANCE: Uncomfortable appearing HEAD: normocephalic, atraumatic. EYES: PERRLA/EOMI, conjunctivae clear. NOSE: Normal no drainage EARS:TMS clear with good light reflex. THROAT: Pharynx clear, no exudate. NECK: Supple. No adenopathy, no masses. RESPIRATORY: Airway patent, respirations nonlabored. Clear to auscultation bilaterally, no rales, rhonchi, wheezing. CARDIOVASCULAR: Regular rate and rhythm without murmurs rubs or gallops. ABDOMINAL: Soft, nontender, nondistended, normal bowel sounds MUSCULOSKELETAL: Moves all extremities. Strength/ROM intact, No edema, No calf tenderness. NEURO: Alert. Cranial nerves II through XII intact. Good gait. Good coordination SKIN: Warm, dry. Normal Color Course Vital Signs Vital signs: Vital Signs Temperature 98.1 F 10/15/24 11:15 Pulse Rate 85 10/15/24 11:15 Respiratory Rate 20 10/15/24 11:15 Blood Pressure 151/103 H 10/15/24 11:15 Pulse Oximetry 96 10/15/24 11:15 Oxygen Delivery Room Air 10/15/24 11:15 Temperature 98.1 F 10/15/24 11:15 Pulse Rate 100 10/15/24 14:56 Respiratory Rate 20 10/15/24 14:56 Blood Pressure 132/100 H 10/15/24 14:56 Pulse Oximetry 100 10/15/24 14:56 Oxygen Delivery Room Air 10/15/24 11:15 Medical Decision Making [facility] Narrative Medical decision making narrative: 44-year-old male presents emergency department for evaluation for chronic abdominal pain. Patient is currently afebrile but does have a leukocytosis of 12.1 and hemoglobin of 13.4. Patient has an INR of 1.0. Patient has no acute abnormalities on his CMP also has a normal lactic acid and a normal lipase. Patient has no acute abnormalities on his UA. Patient was treated with IV fluids, IV famotidine, IV Protonix, GI cocktail, patient declined his Bentyl and patient was requesting narcotics for pain control. Patient was treated with 2 mg of IV morphine and patient reported did feel improved. Differential Diagnosis Differential Diagnosis: Colitis, diverticulitis, pancreatitis Vital Signs Vital Signs: Vital Signs Temperature 98.1 F 10/15/24 11:15 Pulse Rate 85 10/15/24 11:15 Respiratory Rate 20 10/15/24 11:15 Blood Pressure 151/103 H 10/15/24 11:15 Pulse Oximetry 96 10/15/24 11:15 Oxygen Delivery Room Air 10/15/24 11:15 Temperature 98.1 F 10/15/24 11:15 Pulse Rate 100 10/15/24 14:56 Respiratory Rate 20 10/15/24 14:56 Blood Pressure 132/100 H 10/15/24 14:56 Pulse Oximetry 100 10/15/24 14:56 Oxygen Delivery Room Air 10/15/24 11:15 Lab Data Lab results reviewed: Yes I reviewed the patient's lab results. 10/15/24 11:40 10/15/24 11:40 Labs: Lab Results 10/15/24 10/15/24 Range/Units 11:40 12:34 WBC 12.1 H (4.5-10.0) K/mm3 RBC 4.67 (4.6-6.20) M/mm3 Hgb 13.4 L (14.0-18.0) g/dL Hct 40.1 L (42.0-52.0) % MCV 85.9 (80-100) fl MCH 28.7 (26-34) pg MCHC 33.4 (32-36) g/dl RDW 15.6 H (11.5-14.5) % Plt Count 295 (150-375) k/mm3 MPV 9.5 (7.4-10.4) fl Immature Gran % (Auto) 0.4 (0-0.5) % Neut % (Auto) 80.9 H (45.5-73.1) % Lymph % (Auto) 9.5 L (18.3-44.2) % [place] % (Auto) 8.6 H (2.6-8.5) % Eos % (Auto) 0.3 (0-4.4) % Baso % (Auto) 0.3 (0.2-1.2) % Lymph # (Auto) 1.15 (0.9-3.2) K/mm3 [place] # (Auto) 1.0 H (0.1-0.6) K/mm3 Eos # (Auto) 0.0 (0-0.3) K/mm3 Baso # (Auto) 0.0 (0.0-0.1) K/mm3 Abs Immat Gran (auto) 0.05 H (0.00-0.031) K/mm3 Absolute Neuts (auto) 9.8 H (1.3-6.7) K/mm3 Absolute Nucleated RBC 0.000 (0.0-0.012) K/mm3 Nucleated RBC % 0.0 (0.0-0.2) % PT 13.7 (11.1-14.7) Seconds INR 1.0 APTT 28.0 (22.3-36.8) Seconds Sodium 140 (137-145) mmol/L Potassium 3.9 (3.4-5.0) mmol/L Chloride 109 H (98-107) mmol/L Carbon Dioxide 23 (22-30) mmol/L Anion Gap 8 (4-12) mmol/L BUN 6 L (9-20) mg/dL Creatinine 0.86 (0.7-1.3) mg/dL Estim Creat Clear Calc 100 ml/min Estimated GFR > 60 (59 - ) Glucose 101 (65-110) mg/dL Lactic Acid 0.9 (0.7-2.0) mmol/L Calcium 9.1 (8.4-10.2) mg/dL Total Bilirubin 0.7 (0.2-1.3) mg/dL AST 32 (17-59) U/L ALT 19 (6-50) U/L Alkaline Phosphatase 71 (38-126) U/L Total Protein 6.7 (6.3-8.2) g/dL Albumin 4.1 (3.5-5.1) g/dL Lipase 108 (23-300) U/L Urine Color Yellow (Yellow) Urine Appearance Clear (Clear) Urine pH 7.5 (5.0-9.0) Ur Specific [place] 1.012 (1.001-1.035) Urine Protein Negative (Negative) mg/dL Urine Glucose (UA) Negative (Negative) mg/dL Urine Ketones 1+ H (Negative) mg/dL Ur Blood (Man) Negative (Negative) Urine Nitrate Negative (Negative) Urine Bilirubin Negative (Negative) Urine Urobilinogen 0.2 (<2.0) mg/dL Leukocyte Esterase Rfl Negative (Negative) CHRIS/UL Discharge Plan Discharge Clinical Impression: Cyclical vomiting, Chronic pancreatitis, Chronic abdominal pain Patient Disposition: Home Condition: Stable Instructions: Antibiotic Form, Abdominal Pain (ED) Additional Instructions: Have close follow-up with GI. If you have any worsening symptoms then please call or return to emergency department. Patient Language: Albanian Prescriptions: No Action omeprazole 20 mg capsule,delayed release(DR/EC) 20 mg PO DAILY Qty: 14 0RF ondansetron 4 mg tablet,disintegrating 4 mg PO Q8H PRN (Reason: nausea and vomiting) Qty: 14 0RF dicyclomine 20 mg tablet 20 mg PO QID Qty: 20 0RF promethazine 25 mg tablet 25 mg PO Q6H PRN (Reason: nausea and vomiting) Qty: 20 0RF ondansetron 4 mg tablet,disintegrating 4 mg PO Q8H PRN (Reason: nausea and vomiting) Qty: 10 0RF hyoscyamine sulfate [Levsin] 0.125 mg tablet 0.125 mg PO QID Qty: 14 0RF ondansetron 4 mg tablet,disintegrating 4 mg PO Q6H PRN (Reason: nausea and vomiting) Qty: 10 0RF alum-mag hydroxide-simeth [Maalox Advanced] 200-200-20 mg/5 mL suspension 10 ml PO QID PRN (Reason: dyspepsia) Qty: 300 0RF Rx Instructions: administer between meals and at bedtime ondansetron 4 mg tablet,disintegrating 4 mg PO Q8H PRN (Reason: nausea and vomiting) Qty: 10 0RF dicyclomine 20 mg Tablet 20 mg PO BID Patient Comments: HAVE NOT HAD A DOSE. UNABLE TO OBTAIN FROM HIS PHARMACY Eliquis 5 mg Tablet 5 mg PO BID dicyclomine 20 mg tablet 20 mg PO BID Qty: 30 0RF famotidine [Pepcid] 20 mg tablet 20 mg PO BID 42 Days Qty: 84 0RF ondansetron 4 mg tablet,disintegrating 4 mg PO Q8H PRN (Reason: nausea and vomiting) Qty: 10 0RF dicyclomine 20 mg tablet 20 mg PO TID PRN (Reason: abdominal pain) Qty: 20 0RF Follow-up/Referrals: John,Td Lewis MD [Primary Care Provider] -
[2024-10-15] MEDS: LACTATED RINGERS 2,000 ML 999 ML IV CONT (11:44)
[2024-10-15] MEDS: ONDANSETRON INJ 4 MG/2 ML VIAL IV PUSH (11:44)
[2024-10-15] MEDS: KETOROLAC 30 MG/ML VIAL (*BKC) IV PUSH (11:45)
[2024-10-15 11:46] LABS: Basophils Percent Auto 0.3 % (0.2-1.2); Eosinophils Percent Auto 0.3 % (0-4.4); Hematocrit 40.1 % (42.0-52.0); Hemoglobin 13.4 g/dL (14.0-18.0); Immature Granulocyte Absolute 0.05 K/mm3 (0.00-0.031); Immature Granulocyte Percent A 0.4 % (0-0.5); Lymphocytes Absolute Auto 1.15 K/mm3 (0.9-3.2); Lymphocytes Percent Auto 9.5 % (18.3-44.2); Mean Corpuscular HGB Conc 33.4 g/dl (32-36); Mean Corpuscular Hemoglobin 28.7 pg (26-34); Mean Corpuscular Volume 85.9 fl (80-100); Mean Platelet Volume 9.5 fl (7.4-10.4); Monocytes Percent Auto 8.6 % (2.6-8.5); Neutrophils Absolute Auto 9.8 K/mm3 (1.3-6.7); Neutrophils Percent Auto 80.9 % (45.5-73.1); Platelet Count Result 295 k/mm3 (150-375); Red Blood Count 4.67 M/mm3 (4.6-6.20); Red Cell Distribution Width 15.6 % (11.5-14.5); White Blood Count 12.1 K/mm3 (4.5-10.0)
[2024-10-15 12:03] LABS: Lactic Acid Reflex 0.9 mmol/L (0.7-2.0)
[2024-10-15 12:04] LABS: Alanine Aminotransferase 19 U/L (6-50); Albumin Level 4.1 g/dL (3.5-5.1); Alkaline Phosphatase 71 U/L (38-126); Anion Gap 8 mmol/L (4-12); Aspartate Amino Transferase 32 U/L (17-59); Bilirubin,Total 0.7 mg/dL (0.2-1.3); Blood Urea Nitrogen 6 mg/dL (9-20); Calcium 9.1 mg/dL (8.4-10.2); Carbon Dioxide 23 mmol/L (22-30); Chloride 109 mmol/L (98-107); Estimated CRCL calculation 100 ml/min; Estimated Glomerular Filt Rate > 60; Glucose 101 mg/dL (65-110); Lipase 108 U/L (23-300); Potassium 3.9 mmol/L (3.4-5.0); Sodium 140 mmol/L (137-145); Total Protein 6.7 g/dL (6.3-8.2)
[2024-10-15 12:13] LABS: Prothrombin Time 13.7 Seconds (11.1-14.7)
[2024-10-15 12:42] LABS: Add Urine Microscopic? NO; Appearance Urine Clear (Clear); Bilirubin Urine Negative (Negative); Blood Urine Negative (Negative); Color Urine Yellow (Yellow); Glucose Urine UA Negative (Negative); Ketones Urine 1+ mg/dL (Negative); Leukocyte Esterase Ur Negative LEU/UL (Negative); Nitrate Urine Negative (Negative); Protein Urine Negative (Negative); Specific Grav Ur 1.012 (1.001-1.035); Urobilinogen Urine 0.2 mg/dL (<2.0); pH Urine 7.5 (5.0-9.0)
[2024-10-15] MEDS: PANTOPRAZOLE SODIUM IV 40 MG VIAL IV PUSH (13:04)
[2024-10-15] MEDS: BELLADONNA ALK/PHENOB ELIX 10 ML, MAG HYDROX/ALUMINUM HYD/SIMETH 30 ML, LIDOCAINE 2% VI... PO (13:04)
[2024-10-15] MEDS: FAMOTIDINE 20 MG/2 ML VIAL IV PUSH (13:04)
[2024-10-15 14:56] VITALS: BP 132/100; PULSE 100; RESP 20; O2SAT 100
[2024-10-15] MEDS: MORPHINE SULFATE (*CRX) 2 MG/ML INJ IV PUSH (16:01)
== END 2024-10-15 16:32 | disposition home or self-care (01) ==
PROVIDERS: Emergency Provider Emergency Medicine; PCP Family Medicine
DX: K86.1 Other chronic pancreatitis (principal); R11.15 Cyclical vomiting syndrome unrelated to migraine; R10.9 Unspecified abdominal pain; G89.29 Other chronic pain; I10 Essential (primary) hypertension; K21.9 Gastro-esophageal reflux disease without esophagitis; K58.9 Irritable bowel syndrome, unspecified; Z87.442 Personal history of urinary calculi; Z90.49 Acquired absence of other specified parts of digestive tract; F17.210 Nicotine dependence, cigarettes, uncomplicated; Z79.01 Long term (current) use of anticoagulants; Z79.899 Other long term (current) drug therapy
CPT/HCPCS: 36415; 80053; 81003; 83605; 83690; 85025; 85610; 85730; 96361; 96374; 96375; 99284; A9270; J1885; J2270; J2405; J2470; J7120

== ENCOUNTER 2024-11-29 00:42 | Emergency (ER) | payer SELFPAY ==
[2024-11-29 00:43] VITALS: BP 164/106; PULSE 90; RESP 18; TEMP 36.9; O2SAT 99
--- OUTSIDE RECORDS SUMMARY | 2024-11-29 00:45 | XMS_ITS | Referral Summary ---
[facility] Address [address] [place] [address] Care Team Providers Care Ur Coordinator Name Role Phone Td Lopez MD Primary Care Provider + Angie Woodard MD Unavailable [phone] Vimal Woodruff MD Unavailable Encounters Date Type Department Care Team Description 11/26/2024 2:02 AM CDT - 11/26/2024 4:25 AM CDT Emergency [facility] Emergency Department [facility] [place] [address] Blue Warren MD Abdominal pain (Primary Dx); Nausea and vomiting, unspecified vomiting type Discharge Disposition: Discharge to home or self care 10/20/[address] [facility] Accountable Care Organization [address] [place] [address] Niki Burns MA 10/19/2024 [facility] [address] [address] Niki Burns MA 10/18/2024 1:45 PM CDT - 10/18/2024 7:54 PM CDT Emergency [facility] Emergency Department [address] [place] [address] Oswaldo Burns MD Chronic abdominal pain (Primary Dx) Discharge Disposition: Discharge to home or self care 10/18/2024 [facility] ED Outreach [address] [address] Niki Burns MA 10/14/2024 12:14 AM CDT - 10/14/2024 2:13 AM CDT Emergency [facility] Emergency Department [address] [place] [address] Enteritis (Primary Dx) Discharge Disposition: Discharge to home or self care 10/13/2024 4:36 AM CDT - 10/13/2024 10:20 AM CDT Emergency [address] [address] Rodney Mejia MD Journagan, Kevin, MD Abdominal pain (Primary Dx); History of pancreatitis; Chronic abdominal pain; Nausea and vomiting, unspecified vomiting type Discharge Disposition: Discharge to home or self care 10/08/2024 7:54 PM CDT - 10/08/2024 8:06 PM CDT Emergency [facility] Emergency Department [address] [place] [address] Chronic abdominal pain (Primary Dx) Discharge Disposition: Discharge to home or self care 10/07/2024 5:29 AM CDT - 10/07/2024 8:34 AM CDT Emergency [address] [address] Jose Francisco Harper DO Prograis, Shannon Smith, MD Abdominal pain (Primary Dx); Chronic pancreatitis, unspecified pancreatitis type (HCC) Discharge Disposition: Discharge to home or self care 10/06/2024 11:00 [address]T [address] [facility] [address] [place] [address] Td Lopez MD Abdominal pain (Primary Dx); Other chronic pancreatitis (HCC); Gastroesophageal reflux disease without esophagitis; Irritable bowel syndrome with both constipation and diarrhea 10/05/2024 [facility] IP Outreach [address] [address] Lakshmi Garcia LPN 10/04/[address] [facility] [address] [place] [address] Td Lopez MD schedule [facility] appt 10/02/2024 9:53 PM CDT - 10/03/2024 11:39 AM CDT Hospital Encounter [address] [place] [address] María Elena Calvo MD Medavaram, Atul, MD Sada, MD Kirk Gardner, MD Eben Abdominal pain (Primary Dx); Acute pancreatitis, unspecified complication status, unspecified pancreatitis type; Pain, dental Discharge Disposition: Discharge to home or self care 09/30/2024 5:44 PM CDT - 09/30/2024 8:58 PM CDT Emergency [facility] Emergency Department [address] [place] [address] Radha Casas DO Abdominal pain (Primary Dx); [...] every 8 (eight) hours as needed 01/25/2024 Active lidocaine viscous (XYLOCAINE) 2 % solutionIndicati ons:Mouth Irritation Apply 10 mL to the mouth or throat every 3 (three) hours 200 mL 10/03/2024 Active chlorhexidine (PERIDEX) 0.12 % oral rinse Swish and spit 15 mL 2 (two) times a day 118 mL 10/03/2024 Active ibuprofen (ADVIL,MOTRIN) 400 mg tablet Take 1 tablet (400 mg total) by mouth every 8 (eight) hours as needed for pain 20 tablet 10/03/2024 Active HYDROcodone-acet aminophen (NORCO) 5-325 mg per tabletIndication s:Pain Take 1 tablet by mouth every 8 (eight) hours as needed for pain 12 tablet 10/06/2024 Active famotidine (PEPCID) 40 mg tabletIndication s:Gastroesophage al reflux disease without esophagitis Take 1 tablet (40 mg total) by mouth daily 90 tablet 1 10/06/[address] (PROTONIX) 40 mg EC tabletIndication s:Treatment of Non-Bleeding Gastric Disorder Take 1 tablet (40 mg total) by mouth daily 90 tablet 1 10/06/2024 Active dicyclomine (BENTYL) 20 mg tabletIndication s:Enterocolitis Take 1 tablet (20 mg total) by mouth 2 (two) times a day as needed (Abdominal cramping) 30 tablet 10/14/2024 Active ketorolac (TORADOL) 10 mg tablet Take 1 tablet (10 mg total) by mouth every 6 (six) hours as needed for pain 20 tablet 10/14/2024 Active ondansetron (ZOFRAN) 4 mg tablet Take 1 tablet (4 mg total) by mouth every 6 (six) hours 12 tablet 10/14/2024 Active Active Problems Problem Noted Date Diagnosed Date Abdominal pain 10/03/2024 Acute pancreatitis, unspecif ied complication status, unspecified pancreatitis type 08/10/2024 Neck pain 03/25/2024 Assessment & Plan (03/25/2024 11:50 AM EHS ENGINEER): - suspect just muscle strain - will check xray - offered PT but pt refused. Protein-calorie malnutrition, moderate Abdominal pain, generalized 09/19/2023 Assessment & Plan (09/25/2023 12:23 PM CDT): - improving - will give small amount of norco until pt heals from his procedure - f/u with GI Current use of termite helper anticoagulation 023 Assessment & Plan (09/25/2023 12:23 PM CDT): - stable - continue eliquis Assessment & Plan (03/20/2023 11:08 AM EHS ENGINEER): - restart eliquis due to life long need for anticoagulation History of thrombosis 03/20/2023 Assessment & Plan (09/25/2023 12:22 PM CDT): - stable - continue eliquis Assessment & Plan (03/20/2023 11:08 AM EHS ENGINEER): - restart eliquis due to life long [...] famotidine Assessment & Plan (03/20/2023 11:08 AM EHS ENGINEER): - stable - continue current medication Renal [...] eval. Assessment & Plan (03/25/2024 11:49 AM EHS ENGINEER): - ref to derm for eval Drug [...] pain Assessment & Plan (03/25/2024 11:49 AM EHS ENGINEER): - poor control - continue hyosciamine, famotidine, zofran - ref to GI for continued treatment Assessment & Plan (03/20/2023 11:07 AM EHS ENGINEER): - stable - continue current medication Duodenal [...] prn Assessment & Plan (07/15/2019 11:44 AM EHS ENGINEER): - stable - continue bentyl and amitriptyline [...] medication Assessment & Plan (07/15/2019 11:44 AM EHS ENGINEER): - stable - continue creon Annual physical [...] able Assessment & Plan (07/15/2019 11:46 AM EHS ENGINEER): - encourage healthy diet, exercise - check labs - encouraged quitting smoking Enteritis 02/18/2019 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 Assessment & Plan (07/15/2019 11:37 AM EHS ENGINEER): - encouraged pt to quit smoking Abdominal pain, epigastric 09/17/2018 Overview (09/17/2018): Added automatically from request for surgery [id number] Assessment & Plan (10/14/2022 8:30 PM CDT): [...] GI Assessment & Plan (03/20/2023 11:07 AM EHS ENGINEER): - stable - continue current medication per [...] 09/17/202209/08 Assessment & Plan (03/20/2023 11:08 AM EHS ENGINEER): - stable off meds - will monitor [...] 09/25/2023 Assessment & Plan (03/26/2021 11:41 AM EHS ENGINEER): - stable today - continue current medications [...] lexapro Assessment & Plan (07/15/2019 11:38 AM EHS ENGINEER): - stable - continue current plan Gastroesophageal reflux dise ase without esophagitis 07/15/2019 03/18/2023 Overview (07/15/2019): - GERD managed by Dr Woodard - Pt on omeprazole and carafate for sx control Assessment & Plan (01/01/2021 12:09 PM CDT): - stable - continue current medication Assessment & Plan (02/07/2020 2:32 PM CDT): - stable - continue current medication Assessment & Plan (07/15/2019 11:38 AM EHS ENGINEER): - stable - continue omeprazole and carafate Viral illness 07/08/2019 02/12/2021 Assessment & Plan (07/09/2019 9:12 AM EHS ENGINEER): Medrol Dosepak as directed. Recommended Mucinex plain [...] PM CDT): - continue with creon and maría elenajuana prn Other chronic pancreatitis 09/17/2018 1 05/26/2020 Overview (09/17/2018): Added automatically from request for surgery [id number] Assessment & Plan (02/12/2021 11:23 AM CDT): - encouraged pt to f/u with new GI - continue hyoscyamine Assessment & Plan (01/01/2021 12:10 PM CDT): - continue prn oxycodone for now - discussed need to wean off of this as this is not a viable termite helper solution - will ref to pain management [...] medication Assessment & Plan (07/15/2019 11:36 AM EHS ENGINEER): - controlled - continue current plan Chronic [...] drink = 0.6 oz pur e alcohol) [facility] Utilities Answer Date Recorded In [...] often do you attend chur ch or mosque services? Never 08/11/2024 Do you belong to any clubs o r organizations such as mandaeism groups, unions, fraternal or athletic groups, or [...] medical appointments or from getting medications? No 04/0 07/2024 In the past 12 months, has [...] any time in the past 12 m [facility], were you homeless or living in a senior care (including now)? No 08/11/2024 Personal Safety Answer Date Recorded Have you ever been in or are you currently in a harmful physical or emotional relationship or is someone making you feel afraid or unsafe? Denies 11/25/2024 Sex and Gender Information Value Date Recorded Sex Assigned at Not on file Legal Sex Male 3:38 AM EHS ENGINEER Gender Identity Not on file Sexual Orientation Not on file Last Filed Vital Signs Vital Sign Reading Time Taken Comments Blood Pressure 141/99 11/26/2024 4:18 AM CDT Pulse 94 11/26/2024 4:18 AM CDT Temperature 36.8 C (98.2 F) 11/26/2024 4:18 AM CDT Respiratory Rate 18 11/26/2024 4:18 AM CDT Oxygen Saturation 98% 11/26/2024 4:18 AM CDT Inhaled Oxygen Concentration - - Weight 70.7 kg (155 lb 13.8 oz) 025 10:55 PM CDT Height 177.8 cm (5' 10) 11/25/2024 10: 55 PM CDT Body Mass Index 22.36 11/25/2024 10:55 PM CDT Plan of Treatment Not on file Medical Devices Explanted Type Area Forming Machine Operator Device Identifier Shelf Expiration Date Model / Serial / Lot [employer] [id number] Connell Flexi-Stent 7fr 5cm Small Pigtail Flexible .035in Stent - [id number] Implanted:Qty: 1 on 09/18/2018 by Vimal Woodruff MD at [facility] Explanted:Qty: 1 on 09/20/2018 at [facility] Stent N/A: Pancreas [employer] 06/10/2023 [id number] / / [id number] Conmed Gina [id number] [place] Viabil 10mm 8.5fr 6cm 200cm Fully Covered Self Expand Pull - [id number] - [id number] Implanted:Qty: 1 on 09/18/2018 by Vimal Woodruff MD at [facility] Explanted:Qty: 1 on 09/20/2018 at [facility] Stent N/A: Bile Duct Conmed Gina 06/29/2021 [id number] / [id number] / [employer] Connell Flexi-Stent 7fr 9cm Small Pigtail Flexible .035in Stent 6575 - [id number] Implanted:Qty: 1 on 02/07/2022 by Vimal Woodruff MD at [facility] Explanted:Qty: 1 on 02/10/2022 by Vimal Woodruff MD at [facility] Stent N/A: Pancreas [employer] 09/07/2026 [id number] / / [id number] [employer] Gina Wallflex 10mm X 60mm Fully Covered Biliary [id number] - [id number] Implanted:Qty: 1 on 02/07/2022 by Vimal Woodruff MD at [facility] Explanted:Qty: 1 on 02/10/2022 by Vimal Woodruff MD at [facility] Stent N/A: Bile Duct [employer] Gina 11/04/2023 [id number] / / [id number] [employer] Connell Flexi-Stent 7fr 9cm Small Pigtail Flexible .035in Stent 6575 - [id number] Implanted:Qty: 1 on 09/21/2023 by Vimal Woodruff MD at [facility] Explanted:Qty: 1 on 09/23/2023 by Vimal Woodruff MD at [facility] Stent N/A: Pancreas [employer] 03/11/2028 [id number] / / [id number] Description:Not present at b eginning of case. Self migrated out [employer] Gina Wallflex 10mm X 60mm Fully Covered Biliary [id number] - [id number] Implanted:Qty: 1 on 09/21/2023 by Vimal Woodruff MD at [facility] Explanted:Qty: 1 on 09/23/2023 by Vimal Woodruff MD at [facility] Stent N/A: Bile Duct [employer] Gina 08/02/2025 [id number] / / [id number] Procedures Procedure Name Priority Date/Time Associated Diagnosis Comments CT ABDOMEN PELVIS W CONTRAST ED 11/26/2024 3:32 AM CDT TROPONIN T HIGH-SENSITIVITY 2-HOUR Timed 11/26/2024 1:13 AM CDT URINALYSIS AND REFLEX TO MICROSCOPIC AND CULTURE STAT 11/25/2024 11:13 PM CDT EGFR STAT 11/25/2024 11:06 PM CDT DIFFERENTIAL AUTO STAT 11/25/2024 11: 06 PM CDT TROPONIN T HIGH-SENSITIVITY SERIES (BASELINE, 2HR, 4HR, 6HR) STAT 11/25/2024 11:06 PM CDT LIPASE STAT 11/25/2024 11:06 PM CDT COMPREHENSIVE METABOLIC PANEL STAT 11/25/2024 11:06 PM CDT CBC WITH AUTO DIFFERENTIAL STAT 11/25/2024 11:06 PM CDT ECG 12-LEAD STAT 11/25/2024 11:[address] ABDOMEN PELVIS W CONTRAST ED 10/18/2024 4:25 PM CDT URINALYSIS AND REFLEX TO MICROSCOPIC AND CULTURE STAT 10/18/2024 3:34 PM CDT EGFR STAT 10/18/2024 12:48 PM CDT DIFFERENTIAL AUTO STAT 10/18/2024 12: 48 PM CDT LIPASE STAT 10/18/2024 12:48 PM CDT COMPREHENSIVE METABOLIC PANEL STAT 10/18/2024 12:48 PM CDT CBC WITH AUTO DIFFERENTIAL STAT 10/18/2024 12:48 PM CDT ADD ON LAB TEST Add-On 10/14/2024 4:[address] ABDOMEN PELVIS W CONTRAST ED 10/14/2024 1:38 AM CDT URINALYSIS AND REFLEX TO MICROSCOPIC AND CULTURE STAT 10/13/2024 10:10 PM CDT LIPASE STAT 10/13/2024 10:06 PM CDT EGFR STAT 10/13/2024 10:06 PM CDT DIFFERENTIAL AUTO STAT 10/13/2024 10: 06 PM CDT COMPREHENSIVE METABOLIC PANEL STAT 10/13/2024 10:06 PM CDT CBC WITH AUTO DIFFERENTIAL STAT 10/13/2024 10:06 PM CDT ECG 12-LEAD STAT 10/13/2024 9:51 PM CDT DIFFERENTIAL AUTO Timed 10/13/2024 7:4 0 AM CDT CBC WITH AUTO DIFFERENTIAL Timed 10/13/2024 7:40 AM CDT SEPSIS LACTATE WITH REFLEX STAT 10/13/2024 4:57 AM CDT DRUGS OF ABUSE SCREEN, URINE WITH REFLEX CONFIRMATION STAT 10/13/2024 4:13 AM CDT EGFR STAT 10/13/2024 4:08 AM CDT DIFFERENTIAL AUTO STAT 10/13/2024 4:0 8 AM CDT TROPONIN T HIGH-SENSITIVITY SERIES (BASELINE, 2HR, 4HR, 6HR) STAT 10/13/2024 4:08 AM CDT LIPASE STAT 10/13/2024 4:08 AM CDT COMPREHENSIVE METABOLIC PANEL STAT 10/13/2024 4:08 AM CDT CBC WITH AUTO DIFFERENTIAL STAT 10/13/2024 4:08 AM CDT URINALYSIS AND REFLEX TO MICROSCOPIC AND CULTURE STAT 10/13/2024 4:08 AM CDT ECG 12-LEAD STAT 10/13/2024 3:54 AM CDT EGFR STAT 10/08/2024 7:25 PM CDT DIFFERENTIAL AUTO STAT 10/08/2024 7:2 5 PM CDT LIPASE STAT 10/08/2024 7:25 PM CDT COMPREHENSIVE METABOLIC PANEL STAT 10/08/2024 7:25 PM CDT CBC WITH AUTO DIFFERENTIAL STAT 10/08/2024 7:25 PM CDT CTA CHEST ABDOMEN PELVIS ED 10/07/2024 6:41 AM CDT XR CHEST 1 VIEW ED 10/07/2024 6:31 AM CDT TROPONIN T HIGH-SENSITIVITY 2-HOUR Timed 10/07/2024 6:05 AM CDT ECG 12-LEAD STAT 10/07/2024 4:11 AM CDT URINALYSIS AND REFLEX TO MICROSCOPIC AND CULTURE STAT 10/07/2024 4:06 AM CDT EGFR STAT 10/07/2024 4:00 AM CDT DIFFERENTIAL AUTO STAT 10/07/2024 4:0 0 AM CDT TROPONIN T HIGH-SENSITIVITY SERIES (BASELINE, 2HR, 4HR, 6HR) STAT 10/07/2024 4:00 AM CDT LIPASE STAT 10/07/2024 4:00 AM CDT COMPREHENSIVE METABOLIC PANEL STAT 10/07/2024 4:00 AM CDT CBC WITH AUTO DIFFERENTIAL STAT 10/07/2024 4:00 AM CDT EGFR Routine 10/03/2024 7:08 AM CDT CBC WITHOUT DIFFERENTIAL Routine 10/03/2024 7:08 AM CDT LIPASE Routine 10/03/2024 7:08 AM CDT BASIC METABOLIC PANEL Routine 10/03/2024 7:08 AM CDT LIPID PANEL Routine 10/03/2024 1:[address] ABDOMEN PELVIS W CONTRAST ED Urgent/IP Urgent 10/03/2024 1:15 AM CDT DRUGS OF ABUSE SCREEN, URINE WITH REFLEX CONFIRMATION Routine 10/03/2024 12:51 AM CDT URINALYSIS AND REFLEX TO MICROSCOPIC AND CULTURE STAT 10/02/2024 10:09 PM CDT EGFR STAT 10/02/2024 9:51 PM CDT DIFFERENTIAL AUTO STAT 10/02/2024 9:5 1 PM CDT LIPASE STAT 10/02/2024 9:51 PM CDT COMPREHENSIVE METABOLIC PANEL STAT 10/02/2024 9:51 PM CDT CBC WITH AUTO DIFFERENTIAL STAT 10/02/2024 9:[address] ABDOMEN PELVIS W CONTRAST ED 09/30/2024 6:38 PM CDT URINALYSIS, MICROSCOPIC ONLY STAT 09/30/2024 5:55 PM CDT URINALYSIS AND REFLEX TO MICROSCOPIC AND CULTURE STAT 09/30/2024 5:55 PM CDT EGFR STAT 09/30/2024 4:01 PM CDT DIFFERENTIAL AUTO STAT 09/30/2024 4:0 1 PM CDT LIPASE STAT 09/30/2024 4:01 PM CDT COMPREHENSIVE METABOLIC PANEL STAT 09/30/2024 4:01 PM CDT CBC WITH AUTO DIFFERENTIAL STAT 09/30/2024 4:01 PM CDT from Last 3 Months Results * CT Abdomen Pelvis W Contrast (11/26/2024 3:32 AM CDT) Anatomical Region Laterality Modality Body N/A Computed Tomogra phy 11/26/2024 4:02 AM CDT Narrative 11/26/2024 4:06 AM CDT EXAM DESCRIPTION: CT ABDOMEN PELVIS W CONTRAST REASON FOR STUDY: Abdominal pain, acute, nonlocalized Pt ambulates to triage for c/o bilateral upper abdominal pain with n/v x3-4 days. Hx of multiple er visits for abdominal pain and hx of pancreatitis. Denies any fever/chills. TECHNIQUE: CT scan of the abdomen and pelvis performed with intravenous and without oral contrast using helical scanning technique with dynamic intravenous contrast injection. Reconstructed coronal and sagittal MPR images reviewed. All images stored on PACS. Automated exposure control was used as a dose optimization technique for this examination. CONTRAST TYPE/DOSE: 100mL of IOVERSOL 350 MG IODINE/ML INTRAVENOUS SYRINGE injected via intravenous COMPARISON: 10/18/2024 FINDINGS: LOWER CHEST: Lung bases are clear. Heart size normal. No effusion. LIVER/BILIARY: Hdsg-bo-efbncnxq steatosis. Unchanged pneumobilia. GALLBLADDER: Absent. SPLEEN: Normal. PANCREAS: Normal. ADRENAL GLANDS: Normal. KIDNEYS/URINARY TRACT: Unremarkable GI: Stomach and small bowel appear normal. Colon and appendix unremarkable. OTHER ABDOMINAL/PELVIS: Major vascular structures are grossly patent and normal in caliber. No enlarged lymph node or free fluid. MSK: Unremarkable. BODY WALL: Unremarkable. IMPRESSION: No acute abnormality identified. THIS IS AN ELECTRONICALLY VERIFIED FINAL REPORT 11/26/2024 4:06 AM - Electronically signed by Aryan Jovel M.D. AR: GIOVANNA Report ID: [id number] Reading Location: [id number] Procedure Note Aryan Jovel MD - 11/26/2024 EXAM DESCRIPTION: CT ABDOMEN PELVIS W CONTRAST REASON FOR STUDY: Abdominal pain, acute, nonlocalized Pt ambulates to triage for c/o bilateral upper abdominal pain with n/vx3-4 days. Hx of multiple er visits for abdominal pain and hx of pancreatitis. Denies any fever/chills. TECHNIQUE: CT scan of the abdomen and pelvis performed with intravenousand without oral contrast using helical scanning technique with dynamic intravenous contrast injection. Reconstructed coronal and sagittal MPRimages reviewed. All images stored on PACS. Automated exposure control was usedas a dose optimization technique for this examination. CONTRAST TYPE/DOSE: 100mL of IOVERSOL 350 MG IODINE/ML INTRAVENOUSSYRINGE injected via intravenous COMPARISON: 10/18/2024 FINDINGS: LOWER CHEST: Lung bases are clear. Heart size normal. No effusion. LIVER/BILIARY: Fzxg-uy-dxochkqg steatosis. Unchanged pneumobilia. GALLBLADDER: Absent. SPLEEN: Normal. PANCREAS: Normal. ADRENAL GLANDS: Normal. KIDNEYS/URINARY TRACT: Unremarkable GI: Stomach and small bowel appear normal. Colon and appendixunremarkable. OTHER ABDOMINAL/PELVIS: Major vascular structures are grossly patent and normal in caliber. No enlarged lymph node or free fluid. MSK: Unremarkable. BODY WALL: Unremarkable. IMPRESSION: No acute abnormality identified. THIS IS AN ELECTRONICALLY VERIFIED FINAL REPORT 11/26/2024 4:06 AM - Electronically signed by Aryan Jovel M.D. AR: GIOVANNA Report ID: [id number] Reading Location: [place] [address] Bluemiguel a Warren MD IMG CT PROCEDURES F inal Result * Troponin T high-sensitivity 2-hour (11/26/2024 1:13 AM CDT) Trop T hs 8 <=22 ng/L Comment: Interpretive Data For further hscTnT resources including the diagnostic algorithm and an aid in interpretation, copy and paste this link: https://nrl.testcatalog.org/show/hsTrop Current Interpretive Data last revised 2020. Testing performed by: [address] [address] Trop T hs delta -3 ng/L NEEL SMITH Comment:Testing performed by : [address] [address] Trop T hs interp Insignificant NEEL SMITH Comment:Testing performed by : [address] [address] Blood 11/26/2024 1:13 AM CDT 11/26/2024 1:25 AM CDT us Blue Warren MD LAB BLOOD ORDERABLE S Final Result NEEL SARAH [address] [facility] Department [place] [address] * Urinalysis reflex to microscopic and culture Urine (11/25/2024 11:13 PM CDT) Color, ur Yellow Yellow Comment:Testing performed by : [address] [address] Clarity, ur Clear Clear NEEL Comment:Testing performed by : [address] [address] Specific gravity, ur 1.020 1.003 - 1.030 NEEL Comment:Testing performed by : [address] [address] pH, urine 6.0 NEEL Comment: Interpretive Data U rine pH is affected by diet, medications, systemic acid-base disturbances, and renal tubular function. pH may affect urinary stone formation. For example, urine pH below 6.0 may help reduce the tendency for calcium phosphate stones and pH greater than 6.0 may reduce the tendency for uric acid stone formation. Source: [facility] [employer] Current Interpretive Data was last revised on 2017 Testing performed by: [address] [address] Protein, ur ql Negative Negative NEEL SMITH Comment:Testing performed by : [address] [address] Glucose, ur ql Negative Negative NEEL SMITH Comment:Testing performed by : [address] [address] Ketones, ur Negative Negative NEEL SMITH Comment:Testing performed by : [address] [address] Bilirubin, ur Negative Negative NEEL SMITH Comment:Testing performed by : [address] [address] Blood, ur Negative Negative NEEL SMITH Comment:Testing performed by : [address] [address] Urobilinogen, ur <2.0 <2.0 mg/dL NEEL Comment:Testing performed by : [address] [address] Nitrite, ur Negative Negative NEEL Comment:Testing performed by : [address] [address] Leukocyte esterase, ur Negative Negative NEEL Comment:Testing performed by : [address] [address] UA reflex comment Reflex conditions for microscopic UA and culture not met. NEEL Comment:Testing performed by : [facility], [address] [place] [address]., [address] Urine 11/25/2024 11:1 3 PM CDT 11/25/2024 11:24 PM CDT Blue Warren MD LAB MICROBIOLOGY - GENERAL ORDERABLES Final Result Performing Organization Address [facility] Co de Phone Number NEEL [facility] [place] [address] * Troponin T high-sensitivity series (baseline, 2hr, 4hr, 6hr) (11/25/2024 11:06 PM CDT) Trop T hs 11 <=22 ng/L Comment: Interpretive Data For further hscTnT resources including the diagnostic algorithm and an aid in interpretation, copy and paste this link: https://nrl.testcatalog.org/show/hsTrop Current Interpretive Data last revised 2020. Testing performed by: [address] [address] Blood 11/25/2024 11:0 6 PM CDT 11/25/2024 11:24 PM CDT Blue Warren MD LAB BLOOD ORDERABLE S Final Result Performing Organization Address [facility]/ZIP Co de Phone Number [address] [place] [address] * eGFR (11/25/2024 11:06 PM CDT) eGFR >90 >=60 mL/min/1. 73 [...] was last reviewed 2021. Testing performed by: [address] [address] Blood 11/25/2024 11:0 6 PM CDT 11/25/2024 11:24 PM CDT us Blue Warren MD LAB BLOOD ORDERABLE S Final Result [facility] [address] [facility] [place] [address] * (ABNORMAL) Differential, auto (11/25/2024 11:06 PM CDT) Neutrophil abs 13.59(H) 1.50 - 6.50 K/cumm Comment:Testing performed by : [address] [address] Imm gran abs 0.11(H) 0.00 - 0.10 K/cumm NEEL SMITH Comment:Testing performed by : [address] [address] Lymphocyte abs 1.24 0.80 - 3.30 K/cumm NEEL Comment:Testing performed by : [address], [place]., [address] Monocyte abs 0.90(H) 0.20 - 0.80 K/cumm NEEL Comment:Testing performed by : [address], [place]., [address] Eosinophil abs 0.02 0.00 - 0.50 K/cumm NEEL Comment:Testing performed by : [address], [place]., [address] Basophil abs 0.05 0.00 - 0.10 K/cumm [facility] Comment:Testing performed by : [address] [address] Neutrophil pct 85.4 % NEEL Comment: Interpretive Data Percent cell count reference ranges are not reported, since discordance with absolute values may lead to misinterpretation of CBC data. Current Interpretive Data was last revised on 2017. Testing performed by: [address] [address] Imm gran pct 0.7 % [facility] Comment: Interpretive Data Percent cell count reference ranges are not reported, since discordance with absolute values may lead to misinterpretation of CBC data. Current Interpretive Data was last revised on 2017. Testing performed by: [address] [address] Lymphocyte pct 7.8 % [facility] Comment: Interpretive Data Percent cell count reference ranges are not reported, since discordance with absolute values may lead to misinterpretation of CBC data. Current Interpretive Data was last revised on 2017. Testing performed by: [address] [address] Monocyte pct 5.7 % [facility] Comment: Interpretive Data Percent cell count reference ranges are not reported, since discordance with absolute values may lead to misinterpretation of CBC data. Current Interpretive Data was last revised on 2017. Testing performed by: [address] [address] Eosinophil pct 0.1 % [facility] Comment: Interpretive Data Percent cell count reference ranges are not reported, since discordance with absolute values may lead to misinterpretation of CBC data. Current Interpretive Data was last revised on 2017. Testing performed by: [address] [address] Basophil pct 0.3 % NEEL SMITH Comment: Interpretive Data Percent cell count reference ranges are not reported, since discordance with absolute values may lead to misinterpretation of CBC data. Current Interpretive Data was last revised on 2017. Testing performed by: [address] [address] Blood 11/25/2024 11:0 6 PM CDT 11/25/2024 11:24 PM CDT us Blue Warren MD LAB BLOOD ORDERABLE S Final Result NEEL [facility] Department [place] [address] * (ABNORMAL) CBC with auto differential (11/25/2024 11:06 PM CDT) WBC 15.91(H) 3.80 - 9.90 K/cumm Comment:Testing performed by : [address] [address] Hgb 15.1 13.0 - 17.5 g/dL NEEL SMITH Comment:Testing performed by : [address] [address] Hct 44.2 38.9 - 50.3 % NEEL SMITH Comment:Testing performed by : [address] [address] Plt 300 150 - 400 K/cumm NEEL SMITH Comment:Testing performed by : [address] [address] MPV 9.7 9.1 - 12.3 fL NEEL SMITH Comment:Testing performed by : [address] [address] RBC 5.26 4.30 - 5.80 M/cumm NEEL SMITH Comment:Testing performed by : [address] [address] MCV 84.0 81.3 - 96.4 fL NEEL SMITH Comment:Testing performed by : [address] [address] MCH 28.7 27.1 - 33.3 pg NEEL SMITH Comment:Testing performed by : [address] [address] MCHC 34.2 32.3 - 35.7 g/dL NEEL SMITH Comment:Testing performed by : [address], [address] RDW CV 15.2(H) 11.1 - 14.9 % NEEL Comment:Testing performed by : [address], [address] RDW SD 46.3 35.7 - 48.1 fL NEEL SMITH Comment:Testing performed by : [address] [address] NRBC abs 0.00 0.00 - 0.01 K/cumm NEEL Comment:Testing performed by : [address], [address] Blood Venous blood specimen / Unknown 11/25/2024 11:06 PM CDT 11/25/2024 11:24 PM CDT us Blue Warren MD LAB BLOOD ORDERABLE S Final Result Performing Organization Address [facility] Phone Number NEEL [facility]6 [facility] Department of Laboratories [place], [place] [id number] * Lipase (11/25/2024 11:06 PM CDT) Lipase 24 10 - 99 Units/L Comment:Testing performed by : [address] [address] Blood Venous blood specimen / Unknown 11/25/2024 11:06 PM CDT 11/25/2024 11:24 PM CDT Blue Warren MD LAB BLOOD ORDERABLE S Final Result NEEL [address] [facility] Department [place] [address] * (ABNORMAL) Comprehensive metabolic panel (11/25/2024 11:06 PM CDT) Sodium 140 135 - 145 mmol/L Comment:Testing performed by : [address] [address] Potassium, pl 4.1 3.3 - 4.9 mmol/L NEEL Comment:Testing performed by : [address], [place]., [address] Chloride 102 97 - 110 mmol/L NEEL Comment:Testing performed by : [address] [address] CO2 24 22 - 32 mmol/L NEEL Comment:Testing performed by : [address], [place]., [address] Anion gap 14 2 - 15 mmol/L NEEL Comment:Testing performed by : [address] [address] BUN 10 6 - 25 mg/dL NEEL Comment:Testing performed by : [address], [place]., [address] Creatinine 1.01 0.80 - 1.30 mg/dL NEEL Comment:Testing performed by : [address] [address] Glucose 115 70 - 199 mg/dL NEEL Comment: Interpretive [...] was last revised 2022. Testing performed by: [address], [place]., [address] Calcium 10.5(H) 8.5 - 10.3 mg/dL NEEL Comment:Testing performed by : [address] [address] Bilirubin, total 0.4 0.1 - 1.2 mg/dL NEEL Comment:Testing performed by : [address] [address] Protein, pl 7.4 6.5 - 8.5 g/dL NEEL Comment:Testing performed by : [address] [address] Albumin 4.5 3.5 - 5.0 g/dL NEEL Comment:Testing performed by : [address] [address] Alk phos 89 40 - 130 Units/L NEEL Comment:Testing performed by : [address] [address] ALT 19 7 - 55 Units/L NEEL Comment:Testing performed by : [address] [address] AST 21 10 - 50 Units/L NEEL Comment:Testing performed by : [address] [address] Blood 11/25/2024 11:0 6 PM CDT 11/25/2024 11:24 PM CDT us Blue Warren MD LAB BLOOD ORDERABLE S Final Result Performing Organization Address City/State/[facility] Co de Phone Number NEEL [address] [facility] Department [place] [address] * ECG 12 lead (11/25/2024 11:02 PM CDT) Pathologist [facility] Ventricular Rate EKG/Min 74 BPM [facility] Atrial Rate [address] [facility] ME-Interval (MSEC) [address] [facility] QRS-Interval (MSEC) [address] [facility] QT-Interval (MSEC) [address] [facility] QTc [address] [facility] P [place] -[address] [facility] R [place] 32 degrees [facility] T [place] [address] [facility] Diagnosis Sinus rhythm with sinus arrhythmia with short ME Otherwise normal ECG When compared with ECG of 13-OCT-2024 03:54, No significant change was found Confirmed by DARIEL CARLOS M.D. ([id number]) on 11/26/2024 10:02:[address] [facility] 11/25/2024 11:0 2 PM CDT 11/26/2024 10:02 PM CDT us Blue Warren MD ECG ORDERABLES Fin al Result [facility] [facility] * CT Abdomen Pelvis W Contrast (10/18/2024 4:25 PM CDT) Anatomical Region Laterality Modality Body N/A Computed Tomogra phy 10/18/2024 4:40 PM CDT Impressions 10/18/2024 4:40 PM CDT No acute process in the abdomen or pelvis Electronically signed by: Fredy Carr MD, PHD Narrative 10/18/2024 4:40 PM CDT EXAMINATION: Computed tomography of the abdomen and pelvis with intravenous contrast HISTORY: Abdominal pain TECHNIQUE: Transaxial computed tomographic images of the abdomen and pelvis were obtained with intravenous contrast according to the standard protocol after the uneventful administration of 80 mL Opti-Ray 350 intravenous contrast. COMPARISON: CT abdomen pelvis 10/14/2024 FINDINGS: Clear lung bases. No pleural effusion. Normal heart size with no pericardial effusion. Tiny cystic lesions in the liver are too small to characterize but likely represent cysts. Unchanged pneumobilia due to sphincterotomy. Gallbladder is absent. Pancreas, spleen, and adrenal glands are normal. Kidneys enhance symmetrically with no hydronephrosis. Urinary bladder is normal. Prostate gland is mildly enlarged and contains calcifications. Colon is mostly decompressed. Normal appendix. There are fluid-filled loops of small bowel which are nonspecific but nondilated. Stomach is decompressed. No mesenteric, retroperitoneal, pelvic, or inguinal lymphadenopathy. No free air or free fluid. Small fat-containing umbilical hernia. Mild atherosclerotic disease in the abdominal aorta. No suspicious osseous lesion or acute fracture. Procedure Note Fredy Carr MD PhD - 10/18/2024 EXAMINATION: Computed tomography of the abdomen and pelvis with intravenous contrast HISTORY: Abdominal pain TECHNIQUE: Transaxial computed tomographic images of the abdomen and pelvis were obtained with intravenous contrast according to the standard protocol after the uneventful administration of 80 mL Opti-Ray 350 intravenous contrast. COMPARISON: CT abdomen pelvis 10/14/2024 FINDINGS: Clear lung bases. No pleural effusion. Normal heart size with no pericardial effusion. Tiny cystic lesions in the liver are too small to characterize but likely represent cysts. Unchanged pneumobilia due to sphincterotomy. Gallbladder is absent. Pancreas, spleen, and adrenal glands are normal. Kidneys enhance symmetrically with no hydronephrosis. Urinary bladder is normal. Prostate gland is mildly enlarged and contains calcifications. Colon is mostly decompressed. Normal appendix. There are fluid-filled loops of small bowel which are nonspecific but nondilated. Stomach is decompressed. No mesenteric, retroperitoneal, pelvic, or inguinal lymphadenopathy. No free air or free fluid. Small fat-containing umbilical hernia. Mild atherosclerotic disease in the abdominal aorta. No suspicious osseous lesion or acute fracture. IMPRESSION: No acute process in the abdomen or pelvis Electronically signed by: Fredy Carr MD, PHD us Oswaldo Burns MD IMG CT PROCEDURES Final Re sult * (ABNORMAL) Urinalysis reflex to microscopic and culture Urine (10/18/2024 3:34 PM CDT) Color, ur Yellow Yellow Clarity, ur Turbid(A) Clear [facility] Specific gravity, ur 1.014 1.003 - 1.030 [facility] pH, urine 7.5 [facility] Comment: Interpretive Data U rine pH is affected by diet, medications, systemic acid-base disturbances, and renal tubular function. pH may affect urinary stone formation. For example, urine pH below 6.0 may help reduce the tendency for calcium phosphate stones and pH greater than 6.0 may reduce the tendency for uric acid stone formation. Source: [place] [employer] Current Interpretive Data was last revised on 2017 Protein, ur ql Trace Negative [facility] Glucose, ur ql Negative Negative [facility] Ketones, ur 1+(A) Negative [facility] Bilirubin, ur Negative Negative [facility] Blood, ur Negative Negative [facility] Urobilinogen, ur <2.0 <2.0 mg/dL [facility] Nitrite, ur Negative Negative [facility] Leukocyte esterase, ur Negative Negative [facility] UA reflex comment Reflex conditions for microscopic UA and culture not met. [facility] Urine 10/18/2024 3:34 PM CDT 10/18/2024 3:34 PM CDT Oswaldo Burns MD LAB MICROBIOLOGY - GENERAL ORDERABLES Final Result Performing Organization Address [facility]/ZIP Co de Phone Number [facility] [address] [place] [address] * eGFR (10/18/2024 12:48 PM CDT) eGFR >90 >=60 mL/min/1. 73 [...] interpretive data was last reviewed 2021. Blood 10/18/2024 12:4 8 PM CDT 10/18/2024 1:27 PM CDT us Domenic Arias MD LAB BLOOD ORDERABLES Final R esult Performing Organization Address City/[facility]/ZIP Co de Phone Number [facility] [address] [place] [address] * (ABNORMAL) Differential, auto (10/18/2024 12:48 PM CDT) Neutrophil abs 12.53(H) 1.50 - 6.50 K/cumm Imm gran abs 0.08 0.00 - 0.10 K/cumm [facility] Lymphocyte abs 1.17 0.80 - 3.30 K/cumm [facility] Monocyte abs 1.45(H) 0.20 - 0.80 K/cumm [facility] Eosinophil abs 0.07 0.00 - 0.50 K/cumm [facility] Basophil abs 0.07 0.00 - 0.10 K/cumm [facility] Neutrophil pct 81.5 % [facility] Comment: Interpretive Data Percent cell count reference ranges are not reported, since discordance with absolute values may lead to misinterpretation of CBC data. Current Interpretive Data was last revised on 2017. Imm gran pct 0.5 % [facility] Comment: Interpretive Data Percent cell count reference ranges are not reported, since discordance with absolute values may lead to misinterpretation of CBC data. Current Interpretive Data was last revised on 2017. Lymphocyte pct 7.6 % [facility] Comment: Interpretive Data Percent cell count reference ranges are not reported, since discordance with absolute values may lead to misinterpretation of CBC data. Current Interpretive Data was last revised on 2017. Monocyte pct 9.4 % [facility] Comment: Interpretive Data Percent cell count reference ranges are not reported, since discordance with absolute values may lead to misinterpretation of CBC data. Current Interpretive Data was last revised on 2017. Eosinophil pct 0.5 % [facility] Comment: Interpretive Data Percent cell count reference ranges are not reported, since discordance with absolute values may lead to misinterpretation of CBC data. Current Interpretive Data was last revised on 2017. Basophil pct 0.5 % [facility] Comment: Interpretive Data Percent cell count reference ranges are not reported, since discordance with absolute values may lead to misinterpretation of CBC data. Current Interpretive Data was last revised on 2017. Blood 10/18/2024 12:4 8 PM CDT 10/18/2024 1:27 PM CDT Oswaldo Burns MD LAB BLOOD ORDERABLES Final Result Performing Organization Address City/[facility]/ZIP Co de Phone Number [facility] [address] Department [place] [address] * (ABNORMAL) CBC with auto differential (10/18/2024 12:48 PM CDT) Pathologist [facility] WBC 15.37(H) 3.80 - 9.90 K/cumm Hgb 14.6 13.0 - 17.5 g/dL [facility] Hct 43.2 38.9 - 50.3 % [facility] Plt 353 150 - 400 K/cumm [facility] MPV 10.0 9.1 - 12.3 fL [facility] RBC 5.10 4.30 - 5.80 M/cumm [facility] MCV 84.7 81.3 - 96.4 fL [facility] MCH 28.6 27.1 - 33.3 pg [facility] MCHC 33.8 32.3 - 35.7 g/dL [facility] RDW CV 15.8(H) 11.1 - 14.9 % [facility] RDW SD 48.2(H) 35.7 - 48.1 fL [facility] NRBC abs 0.00 0.00 - 0.01 K/cumm [facility] Blood Venous blood specimen / Unknown 10/18/2024 12:48 PM CDT 10/18/2024 1:27 PM CDT Oswaldo Burns MD LAB BLOOD ORDERABLES Final Result [facility] [address] [place] [address] * Lipase (10/18/2024 12:48 PM CDT) Pathologist [facility] Lipase 36 10 - 99 Units/L Blood Venous blood specimen / Unknown 10/18/2024 12:48 PM CDT 10/18/2024 1:27 PM CDT Oswaldo Burns MD LAB BLOOD ORDERABLES Final Result [facility] [address] Department [place] [address] * (ABNORMAL) Comprehensive metabolic panel (10/18/2024 12:48 PM CDT) Sodium 141 135 - 145 mmol/L Potassium, pl 3.8 3.3 - 4.9 mmol/L [facility] Chloride 103 97 - 110 mmol/L [facility] CO2 22 22 - 32 mmol/L [facility] Anion gap 16(H) 2 - 15 mmol/L [facility] BUN 9 6 - 25 mg/dL [facility] Creatinine 1.01 0.80 - 1.30 mg/dL [facility] Glucose 132 70 - 199 mg/dL [facility] Comment: Interpretive Data Fasting glucose [...] interpretive data was last revised 2022. Calcium 9.8 8.5 - 10.3 mg/dL [facility] Bilirubin, total 0.7 0.1 - 1.2 mg/dL [facility] Protein, pl 7.3 6.5 - 8.5 g/dL [facility] Albumin 4.4 3.5 - 5.0 g/dL [facility] Alk phos 83 40 - 130 Units/L [facility] ALT 22 7 - 55 Units/L [facility] AST 28 10 - 50 Units/L [facility] Blood 10/18/2024 12:4 8 PM CDT 10/18/2024 1:27 PM CDT Oswaldo Burns MD LAB BLOOD ORDERABLES Final Result Performing Organization Address City/[facility]/ZIP Co de Phone Number [facility] [address] [facility] [place] [address] * Lipase - Add on lab test (10/14/2024 4:29 AM CDT) Acceptable Yes Blood 10/14/2024 4:29 AM CDT 10/14/2024 4:29 AM CDT Narrative [facility] - 10/14/2024 4:30 AM CDT Name of Test->Lipase Yusef Bear MD LAB BLOOD ORDERABLES Final Result Performing Organization Address [facility] Co de Phone Number [facility] [address] [facility] [place] [address] * CT Abdomen Pelvis W Contrast (10/14/2024 1:38 AM CDT) Anatomical Region Laterality Modality Body N/A Computed Tomogra phy 10/14/2024 1:29 AM CDT Impressions 10/14/2024 9:11 AM CDT No acute abnormality in the abdomen or pelvis. No pancreatitis. For the purposes of cloth tester quality, this study was initially interpreted by teleradiology. There is no significant discrepancy. Dictated by: López yWnn MD The radiology attending physician has personally [...] pelvis. No pancreatitis. For the purposes of cloth tester quality, this study was initially interpreted by [...] ur Yellow Yellow Clarity, ur Clear Clear [facility] Specific gravity, ur 1.010 1.003 - 1.030 [facility] pH, urine 6.5 [facility] Comment: Interpretive Data U rine pH is affected by diet, medications, systemic acid-base disturbances, and renal tubular function. pH may affect urinary stone formation. For example, urine pH below 6.0 may help reduce the tendency for calcium phosphate stones and pH greater than 6.0 may reduce the tendency for uric acid stone formation. Source: [facility] Current Interpretive Data was last revised on 2017 Protein, ur ql Negative Negative [facility] Glucose, ur ql Negative Negative [facility] Ketones, ur 1+(A) Negative [facility] Bilirubin, ur Negative Negative [facility] Blood, ur Negative Negative [facility] Urobilinogen, ur <2.0 <2.0 mg/dL [facility] Nitrite, ur Negative Negative [facility] Leukocyte esterase, ur Negative Negative [facility] UA reflex comment Reflex conditions for microscopic UA and culture not met. [facility] Urine 10/13/2024 10:1 0 PM CDT 10/13/2024 10:11 PM CDT Abdiel Donaldson MD LAB MICROBIOLOGY - GENERAL O RDERABLES Final Result [facility] [address] [place] [address] * eGFR (10/13/2024 10:06 PM CDT) eGFR [...] MD LAB BLOOD ORDERABLES Final R esult [facility] [address] Department [place] [address] * (ABNORMAL) Differential, auto (10/13/2024 10:06 PM CDT) Neutrophil abs 11.31(H) 1.50 - 6.50 K/cumm Imm gran abs 0.06 0.00 - 0.10 K/cumm [facility] Lymphocyte abs 1.47 0.80 - 3.30 K/cumm [facility] Monocyte abs 1.09(H) 0.20 - 0.80 K/cumm [facility] Eosinophil abs 0.07 0.00 - 0.50 K/cumm [facility] Basophil abs 0.04 0.00 - 0.10 K/cumm [facility] Neutrophil pct 80.5 % [facility] Comment: Interpretive Data Percent cell count reference ranges are not reported, since discordance with absolute values may lead to misinterpretation of CBC data. Current Interpretive Data was last revised on 2017. Imm gran pct 0.4 % [facility] Comment: Interpretive Data Percent cell count reference ranges are not reported, since discordance with absolute values may lead to misinterpretation of CBC data. Current Interpretive Data was last revised on 2017. Lymphocyte pct 10.5 % [facility] Comment: Interpretive Data Percent cell count reference ranges are not reported, since discordance with absolute values may lead to misinterpretation of CBC data. Current Interpretive Data was last revised on 2017. Monocyte pct 7.8 % [facility] Comment: Interpretive Data Percent cell count reference ranges are not reported, since discordance with absolute values may lead to misinterpretation of CBC data. Current Interpretive Data was last revised on 2017. Eosinophil pct 0.5 % [facility] Comment: Interpretive Data Percent cell count reference ranges are not reported, since discordance with absolute values may lead to misinterpretation of CBC data. Current Interpretive Data was last revised on 2017. Basophil pct 0.3 % [facility] Comment: Interpretive Data Percent cell count reference ranges are not reported, since discordance with absolute values may lead to misinterpretation of CBC data. Current Interpretive Data was last revised on 2017. Blood 10/13/2024 10:0 6 PM CDT 10/13/2024 10:43 PM CDT us Abdiel Donaldson MD LAB BLOOD ORDERABLES Final R esult [facility] [address] Department of Laboratories [place], [place] [id number] * (ABNORMAL) CBC with auto differential (10/13/2024 10:06 PM CDT) WBC 14.04(H) 3.80 - 9.90 K/cumm Hgb 14.1 13.0 - 17.5 g/dL [facility] Hct 43.6 38.9 - 50.3 % [facility] Plt 312 150 - 400 K/cumm [facility] MPV 10.3 9.1 - 12.3 fL [facility] RBC 5.01 4.30 - 5.80 M/cumm [facility] MCV 87.0 81.3 - 96.4 fL [facility] MCH 28.1 27.1 - 33.3 pg [facility] MCHC 32.3 32.3 - 35.7 g/dL [facility] RDW CV 15.6(H) 11.1 - 14.9 % [facility] RDW SD 49.1(H) 35.7 - 48.1 fL [facility] NRBC abs 0.00 0.00 - 0.01 K/cumm [facility] Blood Venous blood specimen / Unknown 10/13/2024 10:06 PM CDT 10/13/2024 10:43 PM CDT Abdiel Donaldson MD LAB BLOOD ORDERABLES Final R esult [facility] [address] [place], [place] [id number] * (ABNORMAL) Lipase (10/13/2024 10:06 PM CDT) [facility] Lipase 119(H) 10 - 99 Units/L Blood 10/13/2024 10:0 6 PM CDT 10/13/2024 10:43 PM CDT Abdiel Donaldson MD LAB BLOOD ORDERABLES Final R esult Performing Organization Address City/[facility]/ZIP Co de Phone Number [facility] [address] Department [place] [address] * (ABNORMAL) Comprehensive metabolic panel (10/13/2024 10:06 PM CDT) [facility] Sodium 144 135 - 145 mmol/L Potassium, pl 3.7 3.3 - 4.9 mmol/L [facility] Chloride 104 97 - 110 mmol/L [facility] CO2 22 22 - 32 mmol/L [facility] Anion gap 18(H) 2 - 15 mmol/L [facility] BUN 7 6 - 25 mg/dL [facility] Creatinine 0.91 0.80 - 1.30 mg/dL [facility] Glucose 95 70 - 199 mg/dL [facility] Comment: Interpretive Data Fasting glucose [...] 2022. Calcium 9.3 8.5 - 10.3 mg/dL [facility] Bilirubin, total 0.4 0.1 - 1.2 mg/dL [facility] Protein, pl 7.0 6.5 - 8.5 g/dL [facility] Albumin 4.5 3.5 - 5.0 g/dL [facility] Alk phos 82 40 - 130 Units/L [facility] ALT 16 7 - 55 Units/L [facility] AST 19 10 - 50 Units/L [facility] Blood Venous blood specimen / Unknown 10/13/2024 10:06 PM CDT 10/13/2024 10:43 PM CDT Abdiel Donaldson MD LAB BLOOD ORDERABLES Final R esult [facility] [address] Department [place] [address] * ECG 12 lead (10/13/2024 9:51 PM CDT) 10/13/2024 9:[address] [facility] - 10/14/2024 9:31 AM CDT Vent Rate: 68 bpm RR Interval: 880 msec ME Interval: 129 msec QRS Duration: 113 msec QT Interval: 357 msec QTC Interval: 374 msec P-R-T [place]: 26 - 53 - 61 degrees IMPRESSION: SINUS RHYTHM WITH A BORDERLINE SHORT ME INTERVAL WITH MARKED SINUS ARRHYTHMIA INCOMPLETE RIGHT BUNDLE-BRANCH BLOCK BORDERLINE ECG Electronically Signed By: Calvin aponte Jose Francisco Jessica MD ECG ORDERABLES Final Resu lt [facility] * (ABNORMAL) Differential, auto (10/13/2024 7:40 AM CDT) Neutrophil abs 12.72(H) 1.50 - 6.50 K/cumm Imm gran abs 0.06 0.00 - 0.10 K/cumm [facility] Lymphocyte abs 0.98 0.80 - 3.30 K/cumm [facility] Monocyte abs 0.59 0.20 - 0.80 K/cumm [facility] Eosinophil abs 0.01 0.00 - 0.50 K/cumm [facility] Basophil abs 0.04 0.00 - 0.10 K/cumm [facility] Neutrophil pct 88.3 % [facility] Comment: Interpretive Data Percent cell count reference ranges are not reported, since discordance with absolute values may lead to misinterpretation of CBC data. Current Interpretive Data was last revised on 2017. Imm gran pct 0.4 % [facility] Comment: Interpretive Data Percent cell count reference ranges are not reported, since discordance with absolute values may lead to misinterpretation of CBC data. Current Interpretive Data was last revised on 2017. Lymphocyte pct 6.8 % [facility] Comment: Interpretive Data Percent cell count reference ranges are not reported, since discordance with absolute values may lead to misinterpretation of CBC data. Current Interpretive Data was last revised on 2017. Monocyte pct 4.1 % [facility] Comment: Interpretive Data Percent cell count reference ranges are not reported, since discordance with absolute values may lead to misinterpretation of CBC data. Current Interpretive Data was last revised on 2017. Eosinophil pct 0.1 % [facility] Comment: Interpretive Data Percent cell count reference ranges are not reported, since discordance with absolute values may lead to misinterpretation of CBC data. Current Interpretive Data was last revised on 2017. Basophil pct 0.3 % [facility] Comment: Interpretive Data Percent cell count reference ranges are not reported, since discordance with absolute values may lead to misinterpretation of CBC data. Current Interpretive Data was last revised on 2017. Blood 10/13/2024 7:40 AM CDT 10/13/2024 7:42 AM CDT Rodney Mejia MD LAB BLOOD ORDERABLES Fi nal Result Performing Organization Address [facility] de Phone Number [facility] [address] [employer] [address] * (ABNORMAL) CBC with auto differential (10/13/2024 7:40 AM CDT) Pathologist [facility] WBC 14.40(H) 3.80 - 9.90 K/cumm Hgb 13.1 13.0 - 17.5 g/dL [facility] Hct 40.8 38.9 - 50.3 % [facility] Plt 242 150 - 400 K/cumm [facility] MPV 9.9 9.1 - 12.3 fL [facility] RBC 4.61 4.30 - 5.80 M/cumm [facility] MCV 88.5 81.3 - 96.4 fL [facility] MCH 28.4 27.1 - 33.3 pg [facility] MCHC 32.1(L) 32.3 - 35.7 g/dL [facility] RDW CV 15.4(H) 11.1 - 14.9 % [facility] RDW SD 49.5(H) 35.7 - 48.1 fL [facility] NRBC abs 0.00 0.00 - 0.01 K/cumm [facility] Blood 10/13/2024 7:40 AM CDT 10/13/2024 7:42 AM CDT Narrative [facility] - 10/13/2024 7:45 AM CDT For after fluids Rodney Mejia MD LAB BLOOD ORDERABLES Fi nal Result Performing Organization Address [facility] Co de Phone Number [address] [employer] [place] [address] * Sepsis Lactate w/ Reflex (10/13/2024 4:57 AM CDT) Sepsis Lactate 1.1 0.7 - 2.0 mmol/L Blood 10/13/2024 4:57 AM CDT 10/13/2024 4:59 AM CDT Rodney Mejia MD LAB BLOOD ORDERABLES Fi nal Result [facility] [address] [facility] Department [place] [address] * (ABNORMAL) Drugs of Abuse Screen, Urine [...] 2022. Barbiturates, ur Not Detected CutOff 200ng/mL [facility] Comment: Interpretive Data - Barbiturates: Samples containing greater than 200 ng/mL secobarbital or other cross-reacting barbiturate compounds are reported as positive. False positive and false negative results are possible. Confirmatory testing required for definitive results. Current Interpretive Data was last reviewed 2022. Benzodiazepines, ur Not Detected CutOff 100ng/mL [facility] Comment: Interpretive Data - Benzodiazepines: Samples containing greater than 100 ng/mL nordiazepam or other cross-reacting compounds are reported as positive. False positive and false negative results are possible. Confirmatory testing required for definitive results. Current Interpretive Data was last reviewed 2022. Cannabinoids, ur Screen Positive, presumptive (A) CutOff 50 ng/mL [facility] Comment: Interpretive Data - Cannabinoids: Samples containing greater than 50 ng/mL delta-9 THC -COOH or other cross- reacting compounds are reported as positive. False positive and false negative results are possible. Confirmatory testing required for definitive results. Current Interpretive Data was last reviewed 2022. Cocaine, ur Not Detected CutOff 150ng/mL [facility] Comment: Interpretive Data - Cocaine: Samples containing [...] 2022. Opiates, ur Not Detected CutOff 300ng/mL [facility] Comment: Interpretive Data - Opiates: Samples containing greater than 300 ng/mL morphine or other cross-reacting compounds are reported as positive. False positive and false negative results are possible. Confirmatory testing required for definitive results. Current Interpretive Data was last reviewed 2022. Oxycodone, ur Not Detected CutOff 100ng/mL [facility] Comment: Interpretive Data - Oxycodone: Samples containing greater than 100 ng/mL oxycodone or other cross-reacting compounds are reported as positive. False positive and false negative results are possible. Confirmatory testing required for definitive results. Current Interpretive Data was last reviewed 2022. Phencyclidine, ur Not Detected CutOff 25 ng/mL [facility] Comment: Interpretive Data - Phencyclidine: Samples containing [...] AM CDT 10/13/2024 4:16 AM CDT Narrative [facility] - 10/13/2024 4:45 AM CDT Drug of Abuse screening is performed by immunoassay for medical purposes only. This is not to be used for Pain Management purposes. If Detected, confirmation testing will be performed for Amphetamines, Cocaine, Fentanyl, Methadone, Opiates, Oxycodone or Phencyclidine. Result [facility] Rodney Mejia MD LAB URINE ORDERABLES Fi nal Result Performing Organization Address [facility] de Phone Number [facility] [employer] [place] [address] * Troponin T high-sensitivity series (baseline, 2hr, [...] ORDERABLES Fi nal Result Performing Organization Address [facility] de Phone Number [address] [employer] [place] [address] * eGFR (10/13/2024 4:08 AM CDT) eGFR [...] Mejia MD LAB BLOOD ORDERABLES nal Result [place] [id number] [facility] Department [place] [address] * (ABNORMAL) Differential, auto (10/13/2024 4:08 AM CDT) Pathologist [facility] Neutrophil abs 12.87(H) 1.50 - 6.50 K/cumm Imm gran abs 0.09 0.00 - 0.10 K/cumm [facility] Lymphocyte abs 2.58 0.80 - 3.30 K/cumm [facility] Monocyte abs 1.61(H) 0.20 - 0.80 K/cumm [facility] Eosinophil abs 0.19 0.00 - 0.50 K/cumm [facility] Basophil abs 0.07 0.00 - 0.10 K/cumm [facility] Neutrophil pct 74.0 % [facility] Comment: Interpretive Data Percent cell count reference ranges are not reported, since discordance with absolute values may lead to misinterpretation of CBC data. Current Interpretive Data was last revised on 2017. Imm gran pct 0.5 % [facility] Comment: Interpretive Data Percent cell count reference ranges are not reported, since discordance with absolute values may lead to misinterpretation of CBC data. Current Interpretive Data was last revised on 2017. Lymphocyte pct 14.8 % [facility] Comment: Interpretive Data Percent cell count reference ranges are not reported, since discordance with absolute values may lead to misinterpretation of CBC data. Current Interpretive Data was last revised on 2017. Monocyte pct 9.2 % [facility] Comment: Interpretive Data Percent cell count reference ranges are not reported, since discordance with absolute values may lead to misinterpretation of CBC data. Current Interpretive Data was last revised on 2017. Eosinophil pct 1.1 % [facility] Comment: Interpretive Data Percent cell count reference ranges are not reported, since discordance with absolute values may lead to misinterpretation of CBC data. Current Interpretive Data was last revised on 2017. Basophil pct 0.4 % [facility] Comment: Interpretive Data Percent cell count reference ranges are not reported, since discordance with absolute values may lead to misinterpretation of CBC data. Current Interpretive Data was last revised on 2017. Blood 10/13/2024 4:08 AM CDT 10/13/2024 4:16 AM CDT Rodney Mejia MD LAB BLOOD ORDERABLES Fi nal Result [facility] [address] [facility] Department [place] [address] * (ABNORMAL) Urinalysis reflex to microscopic and culture Urine (10/13/2024 4:08 AM CDT) Color, ur Yellow Yellow Clarity, ur Cloudy(A) Clear [facility] Specific gravity, ur 1.013 1.003 - 1.030 [facility] pH, urine 7.5 [facility] Comment: Interpretive Data U rine pH is affected by diet, medications, systemic acid-base disturbances, and renal tubular function. pH may affect urinary stone formation. For example, urine pH below 6.0 may help reduce the tendency for calcium phosphate stones and pH greater than 6.0 may reduce the tendency for uric acid stone formation. Source: [facility] Current Interpretive Data was last revised on 2017 Protein, ur ql Negative Negative [facility] Glucose, ur ql Negative Negative [facility] Ketones, ur Negative Negative [facility] Bilirubin, ur Negative Negative [facility] Blood, ur Negative Negative [facility] Urobilinogen, ur <2.0 <2.0 mg/dL [facility] Nitrite, ur Negative Negative [facility] Leukocyte esterase, ur Negative Negative [facility] UA reflex comment Reflex conditions for microscopic UA and culture not met. [facility] Urine 10/13/2024 4:08 AM CDT 10/13/2024 4:16 AM CDT Rodney Mejia MD LAB MICROBIOLOGY - GENE RAL ORDERABLES Final Result Performing Organization Address City/[facility] Co de Phone Number NEEL [address] [place] [address] * (ABNORMAL) CBC with auto differential (10/13/2024 4:08 AM CDT) WBC 17.41(H) 3.80 - 9.90 K/cumm Hgb 13.8 13.0 - 17.5 g/dL [facility] Hct 41.2 38.9 - 50.3 % [facility] Plt 291 150 - 400 K/cumm [facility] MPV 9.9 9.1 - 12.3 fL [facility] RBC 4.87 4.30 - 5.80 M/cumm [facility] MCV 84.6 81.3 - 96.4 fL [facility] MCH 28.3 27.1 - 33.3 pg [facility] MCHC 33.5 32.3 - 35.7 g/dL [facility] RDW CV 15.4(H) 11.1 - 14.9 % [facility] RDW SD 46.5 35.7 - 48.1 fL [facility] NRBC abs 0.00 0.00 - 0.01 K/cumm [facility] Blood Venous blood specimen / Unknown 10/13/2024 4:08 AM CDT 10/13/2024 4:16 AM CDT Rodney Mejia MD LAB BLOOD ORDERABLES Fi nal Result Performing Organization Address City/[facility]/ZIP Co de Phone Number NEEL [address] [place] [address] * (ABNORMAL) Lipase (10/13/2024 4:08 AM CDT) Lipase 270(H) 10 - 99 Units/L Blood Venous blood specimen / Unknown 10/13/2024 4:08 AM CDT 10/13/2024 4:16 AM CDT Rodney Mejia MD LAB BLOOD ORDERABLES Fi nal Result [facility] [address] [facility] Department [place] [address] * Comprehensive metabolic panel (10/13/2024 4:08 AM CDT) Pathologist [facility] Sodium 141 135 - 145 mmol/L Potassium, pl 3.8 3.3 - 4.9 mmol/L [facility] Chloride 104 97 - 110 mmol/L [facility] CO2 22 22 - 32 mmol/L [facility] Anion gap 15 2 - 15 mmol/L [facility] BUN 12 6 - 25 mg/dL [facility] Creatinine 1.13 0.80 - 1.30 mg/dL [facility] Glucose 110 70 - 199 mg/dL [facility] Comment: Interpretive Data Fasting glucose >/= 126 [...] 2022. Calcium 9.2 8.5 - 10.3 mg/dL [facility] Bilirubin, total 0.3 0.1 - 1.2 mg/dL [facility] Protein, pl 6.8 6.5 - 8.5 g/dL [facility] Albumin 4.2 3.5 - 5.0 g/dL [facility] Alk phos 77 40 - 130 Units/L [facility] ALT 15 7 - 55 Units/L [facility] AST 19 10 - 50 Units/L [facility] Blood 10/13/2024 4:08 AM CDT 10/13/2024 4:16 AM CDT Rodney Mejia MD LAB BLOOD ORDERABLES Fi nal Result Performing Organization Address [facility]/ZIP Co de Phone Number NEEL [address] [facility] Department [place] [address] * ECG 12 lead (10/13/2024 3:54 AM CDT) Ventricular Rate EKG/Min [address] [facility] Atrial Rate 66 BPM [facility] ME-Interval (MSEC) [address] [facility] QRS-Interval (MSEC) [address] [facility] QT-Interval (MSEC) 376 ms [facility] QTc 394 ms [facility] P [place] 3 degrees [facility] R [place] 45 degrees [facility] T [place] 52 degrees [facility] Diagnosis Sinus rhythm with short ME Incomplete right bundle branch block Confirmed by HOLLAND MELGAR M.D. ([facility]) on 10/13/2024 9:29:09 AM [facility] 10/13/2024 3:54 AM CDT 10/13/2024 9:29 AM CDT Rodney Mejia MD ECG ORDERABLES Final R esult Performing Organization Address [facility] de Phone Number [facility] * eGFR (10/08/2024 7:25 PM CDT) eGFR [...] was last reviewed 2021. Testing performed by: [facility], [address] [place] [address]., [address] Blood 10/08/2024 7:25 PM CDT 10/08/2024 7:29 PM CDT us Lilliana LAWTON LAB BLOOD ORDERABLES Final Result NEEL [facility] [facility] Department [place] [address] * (ABNORMAL) Differential, auto (10/08/2024 7:25 PM CDT) Neutrophil abs 5.02 1.50 - 6.50 K/cumm Comment:Testing performed by : [address] [address] Imm gran abs 0.04 0.00 - 0.10 K/cumm NEEL Comment:Testing performed by : [address] [address] Lymphocyte abs 3.13 0.80 - 3.30 K/cumm NEEL Comment:Testing performed by : [address] [address] Monocyte abs 1.11(H) 0.20 - 0.80 K/cumm NEEL Comment:Testing performed by : [address] [address] Eosinophil abs 0.10 0.00 - 0.50 K/cumm NEEL Comment:Testing performed by : [address] [address] Basophil abs 0.06 0.00 - 0.10 K/cumm NEEL Comment:Testing performed by : [address] [address] Neutrophil pct 53.1 % [facility] Comment: Interpretive Data Percent cell count reference ranges are not reported, since discordance with absolute values may lead to misinterpretation of CBC data. Current Interpretive Data was last revised on 2017. Testing performed by: [address] [address] Imm gran pct 0.4 % [facility] Comment: Interpretive Data Percent cell count reference ranges are not reported, since discordance with absolute values may lead to misinterpretation of CBC data. Current Interpretive Data was last revised on 2017. Testing performed by: [address] [address] Lymphocyte pct 33.1 % [facility] Comment: Interpretive Data Percent cell count reference ranges are not reported, since discordance with absolute values may lead to misinterpretation of CBC data. Current Interpretive Data was last revised on 2017. Testing performed by: [address] [address] Monocyte pct 11.7 % [facility] Comment: Interpretive Data Percent cell count reference ranges are not reported, since discordance with absolute values may lead to misinterpretation of CBC data. Current Interpretive Data was last revised on 2017. Testing performed by: [address] [address] Eosinophil pct 1.1 % [facility] Comment: Interpretive Data Percent cell count reference ranges are not reported, since discordance with absolute values may lead to misinterpretation of CBC data. Current Interpretive Data was last revised on 2017. Testing performed by: [address] [address] Basophil pct 0.6 % [facility] Comment: Interpretive Data Percent cell count reference ranges are not reported, since discordance with absolute values may lead to misinterpretation of CBC data. Current Interpretive Data was last revised on 2017. Testing performed by: [address] [address] Blood 10/08/2024 7:25 PM CDT 10/08/2024 7:29 PM CDT Lilliana LAWTON LAB BLOOD ORDERABLES Final Result [facility] [address] [facility] Department [place] [address] * (ABNORMAL) CBC with auto differential (10/08/2024 7:25 PM CDT) [facility] Signature WBC 9.46 3.80 - 9.90 K/cumm Comment:Testing performed by : [address] [address] Hgb 15.0 13.0 - 17.5 g/dL NEEL Comment:Testing performed by : [address] [address] Hct 44.6 38.9 - 50.3 % ENEL Comment:Testing performed by : [address] [address] Plt 321 150 - 400 K/cumm NEEL Comment:Testing performed by : [address] [address] MPV 10.0 9.1 - 12.3 fL NEEL Comment:Testing performed by : [address] [address] RBC 5.38 4.30 - 5.80 M/cumm NEEL Comment:Testing performed by : [address] [address] MCV 82.9 81.3 - 96.4 fL NEEL Comment:Testing performed by : [address] [address] MCH 27.9 27.1 - 33.3 pg NEEL Comment:Testing performed by : [address] [address] MCHC 33.6 32.3 - 35.7 g/dL NEEL Comment:Testing performed by : [address] [address] RDW CV 15.5(H) 11.1 - 14.9 % NEEL Comment:Testing performed by : [address] [address] RDW SD 46.7 35.7 - 48.1 fL NEEL SMITH Comment:Testing performed by : [address] [address] NRBC abs 0.00 0.00 - 0.01 K/cumm NEEL SMITH Comment:Testing performed by : [address] [address] Blood Venous blood specimen / Unknown 10/08/2024 7:25 PM CDT 10/08/2024 7:29 PM CDT Lilliana LAWTON LAB BLOOD ORDERABLES Final Result Performing Organization Address City/[facility]/ZIP Co de Phone Number [address] [employer] [place] [address] * Lipase (10/08/2024 7:25 PM CDT) [facility] Lipase 42 10 - 99 Units/L Comment:Testing performed by : [address] [address] Blood Venous blood specimen / Unknown 10/08/2024 7:25 PM CDT 10/08/2024 7:29 PM CDT [facility] LAB BLOOD ORDERABLES Final Result Performing Organization Address [facility]/ZIP Co de Phone Number [address] [address] * Comprehensive metabolic panel (10/08/2024 7:25 PM CDT) Pathologist [facility] Sodium 141 135 - 145 mmol/L Comment:Testing performed by : [address] [address] Potassium, pl 4.3 3.3 - 4.9 mmol/L NEEL SMITH Comment: Hemolyzed; Potassium value may be falsely elevated by as much as 1.0 mmol/L. Suggest redraw and reanalysis. Testing performed by: [address] [address] Chloride 105 97 - 110 mmol/L NEEL SMITH Comment:Testing performed by : [address] [address] CO2 22 22 - 32 mmol/L NEEL Comment:Testing performed by : [address] [address] Anion gap 14 2 - 15 mmol/L NEEL Comment:Testing performed by : [address], [place]., [address] BUN 7 6 - 25 mg/dL NEEL Comment:Testing performed by : [address], [place]., [address] Creatinine 1.02 0.80 - 1.30 mg/dL NEEL Comment:Testing performed by : [address] [address] Glucose 104 70 - 199 mg/dL NEEL [...] was last revised 2022. Testing performed by: [address] [address] Calcium 10.1 8.5 - 10.3 mg/dL NEEL Comment:Testing performed by : [address] [address] Bilirubin, total 0.3 0.1 - 1.2 mg/dL NEEL Comment:Testing performed by : [address] [address] Protein, pl 7.7 6.5 - 8.5 g/dL NEEL Comment:Testing performed by : [address] [address] Albumin 4.8 3.5 - 5.0 g/dL NEEL Comment:Testing performed by : [address] [address] Alk phos 88 40 - 130 Units/L NEEL Comment:Testing performed by : [address] [address] ALT 24 7 - 55 Units/L NEEL Comment:Testing performed by : [address] [address] AST 25 10 - 50 Units/L NEEL Comment: Hemolyzed; result may be falsely elevated Testing performed by: [address] [address] Blood 10/08/2024 7:25 PM CDT 10/08/2024 7:29 PM CDT us Lilliana LAWTON LAB BLOOD ORDERABLES Final Result Performing Organization Address City/State/[facility] Co de Phone Number NEEL [facility] Department [place] [address] * CTA Chest Abdomen Pelvis (10/07/2024 6:41 [...] Melissa Phoenix M.D. SN T: Report ID: [id number] Reading Location: [id number] Procedure Note Melissa Phoenix MD - 10/07/2024 [...] Melissa Phoenix M.D. SN T: Report ID: [id number] Reading Location: [id number] Jose Francisco Harper DO IMG CT PROCEDURES [...] states this started about an hour ago [employer]. 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 SN T: Report ID: [id number] Reading Location: [id number] Procedure Note Melissa Phoenix MD - 10/07/2024 EXAM DESCRIPTION: XR CHEST 1 VIEW REASON FOR STUDY: Abd pain, unspecified C/o upper L quad abd pain. 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 SN T: Report ID: [id number] Reading Location: [place] [address] Jose Francisco Harper DO IMG XR PROCEDURES Final Res ult * Troponin T high-sensitivity 2-hour (10/07/2024 6:05 AM CDT) Pathologist [facility] Trop T hs <6 <=22 ng/L [...] DO LAB BLOOD ORDERABLES Final Result NEEL [address] [facility] Department [place] [address] * ECG 12 lead (10/07/2024 4:11 AM CDT) Ventricular Rate EKG/Min 65 BPM [facility] Atrial Rate 65 BPM [facility] ME-Interval (MSEC) 108 ms [facility] QRS-Interval (MSEC) 102 ms [facility] QT-Interval (MSEC) 388 ms [facility] QTc 403 ms [facility] P [place] 30 degrees [facility] R [place] 56 degrees [facility] T [place] 58 degrees [facility] Diagnosis Sinus rhythm with short ME Otherwise normal ECG When compared with ECG of 27-JUN-2024 09:54, No significant change was found Confirmed by ASHLIE BERMEO M.D. ([id number]) on 10/07/2024 11:47:08 PM [facility] 10/07/2024 4:11 AM CDT 10/07/2024 11:47 PM CDT Jose Francisco Harper DO ECG ORDERABLES Final Resul t Performing Organization Address [facility] Phone Number [facility] * Urinalysis reflex to microscopic and culture Urine (10/07/2024 4:06 AM CDT) Color, ur Yellow Yellow Clarity, ur Clear Clear [facility] Specific gravity, ur 1.013 1.003 - 1.030 [facility] pH, urine 5.5 [facility] Comment: Interpretive Data U rine pH is affected by diet, medications, systemic acid-base disturbances, and renal tubular function. pH may affect urinary stone formation. For example, urine pH below 6.0 may help reduce the tendency for calcium phosphate stones and pH greater than 6.0 may reduce the tendency for uric acid stone formation. Source: [facility] Current Interpretive Data was last revised on 2017 Protein, ur ql Negative Negative [facility] Glucose, ur ql Negative Negative [facility] Ketones, ur Negative Negative [facility] Bilirubin, ur Negative Negative [facility] Blood, ur Negative Negative [facility] Urobilinogen, ur <2.0 <2.0 mg/dL [facility] Nitrite, ur Negative Negative [facility] Leukocyte esterase, ur Negative Negative [facility] UA reflex comment Reflex conditions for microscopic UA and culture not met. [facility] U[facility] 10/07/2024 4:06 AM CDT 10/07/2024 4:10 AM CDT Jose Francisco Harper DO LAB MICROBIOLOGY - GENERAL ORDERABLES Final Result Performing Organization Address [facility] Co de Phone Number NEEL [address] [place] [address] * Troponin T high-sensitivity series (baseline, 2hr, [...] BLOOD ORDERABLES Final Result Performing Organization Address [facility] Co de Phone Number NEEL [address] of [employer] [place] [address] * eGFR (10/07/2024 4:00 AM CDT) eGFR 87 >=60 mL/min/1. 73 m2 [...] DO LAB BLOOD ORDERABLES Final Result NEEL [address] [facility] Department [place] [address] * (ABNORMAL) Differential, auto (10/07/2024 4:00 AM CDT) Neutrophil abs 5.81 1.50 - 6.50 K/cumm Imm gran abs 0.04 0.00 - 0.10 K/cumm [facility] Lymphocyte abs 3.73(H) 0.80 - 3.30 K/cumm [facility] Monocyte abs 1.14(H) 0.20 - 0.80 K/cumm [facility] Eosinophil abs 0.27 0.00 - 0.50 K/cumm [facility] Basophil abs 0.06 0.00 - 0.10 K/cumm [facility] Neutrophil pct 52.6 % [facility] Comment: Interpretive Data Percent cell count reference ranges are not reported, since discordance with absolute values may lead to misinterpretation of CBC data. Current Interpretive Data was last revised on 2017. Imm gran pct 0.4 % [facility] Comment: Interpretive Data Percent cell count reference ranges are not reported, since discordance with absolute values may lead to misinterpretation of CBC data. Current Interpretive Data was last revised on 2017. Lymphocyte pct 33.8 % [facility] Comment: Interpretive Data Percent cell count reference ranges are not reported, since discordance with absolute values may lead to misinterpretation of CBC data. Current Interpretive Data was last revised on 2017. Monocyte pct 10.3 % [facility] Comment: Interpretive Data Percent cell count reference ranges are not reported, since discordance with absolute values may lead to misinterpretation of CBC data. Current Interpretive Data was last revised on 2017. Eosinophil pct 2.4 % [facility] Comment: Interpretive Data Percent cell count reference ranges are not reported, since discordance with absolute values may lead to misinterpretation of CBC data. Current Interpretive Data was last revised on 2017. Basophil pct 0.5 % [facility] Comment: Interpretive Data Percent cell count reference ranges are not reported, since discordance with absolute values may lead to misinterpretation of CBC data. Current Interpretive Data was last revised on 2017. Blood 10/07/2024 4:00 AM CDT 10/07/2024 4:02 AM CDT [facility]LES Final Result Performing Organization Address City/[facility]/ZIP Co de Phone Number NEEL [address] [employer] [place] [address] * (ABNORMAL) CBC with auto differential (10/07/2024 4:00 AM CDT) WBC 11.05(H) 3.80 - 9.90 K/cumm Hgb 14.9 13.0 - 17.5 g/dL [facility] Hct 44.7 38.9 - 50.3 % [facility] Plt 281 150 - 400 K/cumm [facility] MPV 9.8 9.1 - 12.3 fL [facility] RBC 5.28 4.30 - 5.80 M/cumm [facility] MCV 84.7 81.3 - 96.4 fL [facility] MCH 28.2 27.1 - 33.3 pg [facility] MCHC 33.3 32.3 - 35.7 g/dL [facility] RDW CV 15.3(H) 11.1 - 14.9 % [facility] RDW SD 46.6 35.7 - 48.1 fL [facility] NRBC abs 0.00 0.00 - 0.01 K/cumm [facility] Blood Venous blood specimen / Unknown 10/07/2024 4:00 AM CDT 10/07/2024 4:02 AM CDT us Jose Francisco Harper LAB BLOOD ORDERABLES Final Result Performing Organization Address City/[facility]/ZIP Co de Phone Number NEEL [address] [employer] [place] [address] * (ABNORMAL) Lipase (10/07/2024 4:00 AM CDT) Lipase 104(H) 10 - 99 Units/L Blood Venous blood specimen / Unknown 10/07/2024 4:00 AM CDT 10/07/2024 4:02 AM CDT Jose Francisco Harper DO LAB BLOOD ORDERABLES Final Result [facility] [address] [facility] Department [place] [address] * Comprehensive metabolic panel (10/07/2024 4:00 AM CDT) Pathologist [facility] Sodium 142 135 - 145 mmol/L Potassium, pl 4.1 3.3 - 4.9 mmol/L [facility] Chloride 107 97 - 110 mmol/L [facility] CO2 23 22 - 32 mmol/L [facility] Anion gap 12 2 - 15 mmol/L [facility] BUN 9 6 - 25 mg/dL [facility] Creatinine 1.08 0.80 - 1.30 mg/dL [facility] Glucose 90 70 - 199 mg/dL [facility] Comment: Interpretive Data Fasting glucose >/= 126 [...] 2022. Calcium 9.4 8.5 - 10.3 mg/dL [facility] Bilirubin, total 0.2 0.1 - 1.2 mg/dL [facility] Protein, pl 7.1 6.5 - 8.5 g/dL [facility] Albumin 4.4 3.5 - 5.0 g/dL [facility] Alk phos 81 40 - 130 Units/L [facility] ALT 23 7 - 55 Units/L [facility] AST 24 10 - 50 Units/L [facility] Blood 10/07/2024 4:00 AM CDT 10/07/2024 4:02 AM CDT Jose Francisco Harper DO LAB BLOOD ORDERABLES Final Result Performing Organization Address [facility] Co de Phone Number NEEL [address] [address] * eGFR (10/03/2024 7:08 AM CDT) Pathologist [facility] eGFR >90 >=60 mL/min/1. 73 m2 [...] ORDERABLES Final Res ult Performing Organization Address [facility]/ZIP Co de Phone Number NEEL [address] [place] [address] of [employer] [place] [address] * (ABNORMAL) CBC without differential (10/03/2024 7:08 AM CDT) [facility] WBC 13.42(H) 3.80 - 9.90 K/cumm Hgb 12.4(L) 13.0 - 17.5 g/dL [facility] Hct 37.9(L) 38.9 - 50.3 % [facility] Plt 226 150 - 400 K/cumm [facility] MPV 10.0 9.1 - 12.3 fL [facility] RBC 4.43 4.30 - 5.80 M/cumm [facility] MCV 85.6 81.3 - 96.4 fL [facility] MCH 28.0 27.1 - 33.3 pg [facility] MCHC 32.7 32.3 - 35.7 g/dL [facility] RDW CV 15.4(H) 11.1 - 14.9 % [facility] RDW SD 48.1 35.7 - 48.1 fL [facility] NRBC abs 0.00 0.00 - 0.01 K/cumm [facility] Blood 10/03/2024 7:08 AM CDT 10/03/2024 7:22 AM CDT us Fred Toth MD LAB BLOOD ORDERABLES Final Res ult Performing Organization Address [facility] Co de Phone Number [address] [place] [address] * Lipase (10/03/2024 7:08 AM CDT) [facility] Lipase 55 10 - 99 Units/L Blood 10/03/2024 7:08 AM CDT 10/03/2024 7:22 AM CDT Fred Toth MD LAB BLOOD ORDERABLES Final Res ult Performing Organization Address [facility] de Phone Number [address] [place] [address] * Basic metabolic panel (10/03/2024 7:08 AM CDT) [facility] Sodium 141 135 - 145 mmol/L Potassium, pl 4.4 3.3 - 4.9 mmol/L [facility] Chloride 107 97 - 110 mmol/L [facility] CO2 24 22 - 32 mmol/L [facility] Anion gap 10 2 - 15 mmol/L [facility] BUN 9 6 - 25 mg/dL [facility] Creatinine 0.96 0.80 - 1.30 mg/dL [facility] Glucose 100 70 - 199 mg/dL [facility] Comment: Interpretive Data Fasting glucose >/= 126 [...] MD LAB BLOOD ORDERABLES Final Res ult [facility] [address] [facility] Department [place] [address] * (ABNORMAL) Lipid panel (10/03/2024 1:54 AM CDT) Pathologist [facility] Cholesterol 114 30 - 199 mg/dL Comment: [...] last revised on 2017. Testing performed by: [facility], [address] [place] [address]., [address] Triglycerides 115 <=149 mg/dL [facility] Comment: Interpretive Data Ages < or = [...] last revised on 2017. Testing performed by: [address] [address] HDL 32(L) >=40 mg/dL NEEL Comment: Interpretive [...] last revised on 2017. Testing performed by: [address] [address] LDL, calculated 61 <=129 mg/dL NEEL Comment: [...] 3. Tremaine Griffin et al. [employer] Cardiol. 2020 September 08;5(5):540-548. doi: 10.1001/jamacardio.2020.0013 Current Interpretive Data was last revised on 2023. Testing performed by: [address] [address] Non-HDL Cholesterol 82 mg/dL NEEL SMITH Comment: [...] last revised on 2017. Testing performed by: [address] [address] Chol/HDL ratio 4 NEEL Comment:Testing performed by : [address] [address] Blood 10/03/2024 1:54 AM CDT 10/03/2024 2:00 AM CDT us Fred Toth MD LAB BLOOD ORDERABLES Final Res ult NEEL [address] [facility] Department [place] [address] * CT Abdomen Pelvis W Contrast (10/03/2024 [...] Aryan Jovel M.D. AR: GIOVANNA Report ID: [id number] Reading Location: [place] [address] Procedure Note Aryan Jovel MD - 10/03/2024 [...] Aryan Jovel M.D. AR: GIOVANNA Report ID: [id number] Reading Location: [place] [address] Fred Toth MD IMG CT PROCEDURES Final Result * (ABNORMAL) Drugs of Abuse Screen, Urine with Reflex Confirmation (10/03/2024 12:51 AM CDT) [facility] Amphetamine, ur Not Detected CutOff 500ng/mL Comment: Interpretive Data - Amphetamines: Samples containing greater than 500 ng/mL d-methamphetamine or other cross-reacting amphetamine compounds are reported as positive. Amphetamine immunoassays are subject to significant false positive rates due to cross-reactivity of non-amphetamine drugs. Confirmatory testing required for definitive results. Current Interpretive Data was last reviewed 2022. Testing performed by: [facility], [address] [place] [address]., [address] Barbiturates, ur Not Detected CutOff 200ng/mL NEEL SMITH Comment: Interpretive Data - Barbiturates: Samples containing greater than 200 ng/mL secobarbital or other cross-reacting barbiturate compounds are reported as positive. False positive and false negative results are possible. Confirmatory testing required for definitive results. Current Interpretive Data was last reviewed 2022. Testing performed by: [address] [address] Benzodiazepines, ur Not Detected CutOff 100ng/mL [facility] Comment: Interpretive Data - Benzodiazepines: Samples containing greater than 100 ng/mL nordiazepam or other cross-reacting compounds are reported as positive. False positive and false negative results are possible. Confirmatory testing required for definitive results. Current Interpretive Data was last reviewed 2022. Testing performed by: [address] [address] Cannabinoids, ur Screen Positive, presumptive (A) CutOff 50 ng/mL [facility] Comment: Interpretive Data - Cannabinoids: Samples containing greater than 50 ng/mL delta-9 THC -COOH or other cross- reacting compounds are reported as positive. False positive and false negative results are possible. Confirmatory testing required for definitive results. Current Interpretive Data was last reviewed 2022. Testing performed by: [address] [address] Cocaine, ur Not Detected CutOff 150ng/mL [facility] Comment: Interpretive Data - Cocaine: Samples containing greater than 150 ng/mL benzoylecgonine or other cross- reacting compounds are reported as positive. False positive and false negative results are possible. Confirmatory testing required for definitive results. Current Interpretive Data was last reviewed 2022. Testing performed by: [address] [address] Fentanyl, Ur Not Detected CutOff 5 ng/mL [facility] Comment: Interpretive Data - Fentanyl: Samples containing greater than 1 ng/mL fentanyl or other cross-reacting fentanyl compounds are reported as positive. False positive and false negative results are possible. Confirmatory testing required for definitive results. Current Interpretive Data was last reviewed 2022. Testing performed by: [address], [place]., [address] Methadone, ur Not Detected CutOff 300ng/mL [facility] Comment: Interpretive Data - Methadone: Samples containing greater than 300 ng/mL d,l-methadone or other cross-reacting compounds are reported as positive. False positive and false negative results are possible. Confirmatory testing required for definitive results. Current Interpretive Data was last reviewed 2022. Testing performed by: [address] [address] Opiates, ur Not Detected CutOff 300ng/mL NEEL Comment: Interpretive Data - Opiates: Samples containing greater than 300 ng/mL morphine or other cross-reacting compounds are reported as positive. False positive and false negative results are possible. Confirmatory testing required for definitive results. Current Interpretive Data was last reviewed 2022. Testing performed by: [address] [address] Oxycodone, ur Not Detected CutOff 100ng/mL NEEL Comment: Interpretive Data - Oxycodone: Samples containing greater than 100 ng/mL oxycodone or other cross-reacting compounds are reported as positive. False positive and false negative results are possible. Confirmatory testing required for definitive results. Current Interpretive Data was last reviewed 2022. Testing performed by: [address] [address] Phencyclidine, ur Not Detected CutOff 25 ng/mL NEEL Comment: Interpretive Data - Phencyclidine: Samples containing greater than 25 ng/mL phencyclidine or other cross-reacting compounds are reported as positive. False positive and false negative results are possible. Confirmatory testing required for definitive results. Current Interpretive Data was last reviewed 2022. Testing performed by: [address] [address] Urine Creatinine 102 mg/dL NEEL Comment: Interpretive Data Urine Creatinine: < 10 mg/dL is extremely dilute = or > 10 but < 20 mg/dL is dilute = or > 20 mg/dL is normal Current Interpretive Data was last revised on 2017. Testing performed by: [address] [address] Urine 10/03/2024 12:5 1 AM CDT 10/03/2024 [...] LAB URINE ORDERABLES Final Res ult NEEL [address] [facility] Department [place] [address] * Urinalysis reflex to microscopic and culture Urine (10/02/2024 10:09 PM CDT) Color, ur Yellow Yellow Comment:Testing performed by : [address] [address] Clarity, ur Clear Clear NEEL Comment:Testing performed by : [address] [address] Specific gravity, ur 1.011 1.003 - 1.030 NEEL Comment:Testing performed by : [address] [address] pH, urine 6.0 NEEL Comment: Interpretive Data U rine pH is affected by diet, medications, systemic acid-base disturbances, and renal tubular function. pH may affect urinary stone formation. For example, urine pH below 6.0 may help reduce the tendency for calcium phosphate stones and pH greater than 6.0 may reduce the tendency for uric acid stone formation. Source: [facility] [employer] Current Interpretive Data was last revised on 2017 Testing performed by: [address] [address] Protein, ur ql Negative Negative NEEL Comment:Testing performed by : [address] [address] Glucose, ur ql Negative Negative NEEL Comment:Testing performed by : [address] [address] Ketones, ur Negative Negative NEEL Comment:Testing performed by : [address] [address] Bilirubin, ur Negative Negative NEEL Comment:Testing performed by : [address] [place]., [address] Blood, ur Negative Negative NEEL Comment:Testing performed by : [address], [place]., [address] Urobilinogen, ur <2.0 <2.0 mg/dL NEEL Comment:Testing performed by : [address], [place]., [address] Nitrite, ur Negative Negative NEEL Comment:Testing performed by : [address], [place]., [address] Leukocyte esterase, ur Negative Negative NEEL Comment:Testing performed by : [address], [place]., [address] UA reflex comment Reflex conditions for microscopic UA and culture not met. NEEL Comment:Testing performed by : [facility], [address] [place] [address], [place]., [address] Urine 10/02/2024 10:0 9 PM CDT 10/02/2024 10:11 PM CDT us María Elena Calvo MD LAB MICROBIOLOGY - GENERA L ORDERABLES Final Result NEEL [address] [facility] Department [place] [address] * eGFR (10/02/2024 9:51 PM [...] was last reviewed 2021. Testing performed by: [address] [address] Blood 10/02/2024 9:51 PM CDT 10/02/2024 9:57 PM CDT us María Elena Calvo MD LAB BLOOD ORDERABLES Renee antunez Result [facility] [address] [facility] Department [place] [address] * (ABNORMAL) Differential, auto (10/02/2024 9:51 PM CDT) Neutrophil abs 12.91(H) 1.50 - 6.50 K/cumm Comment:Testing performed by : [address] [address] Imm gran abs 0.10 0.00 - 0.10 K/cumm NEEL Comment:Testing performed by : [address] [address] Lymphocyte abs 1.91 0.80 - 3.30 K/cumm NEEL Comment:Testing performed by : [address] [address] Monocyte abs 1.44(H) 0.20 - 0.80 K/cumm NEEL Comment:Testing performed by : [address] [address] Eosinophil abs 0.14 0.00 - 0.50 K/cumm NEEL Comment:Testing performed by : [address] [address] Basophil abs 0.07 0.00 - 0.10 K/cumm NEEL Comment:Testing performed by : [address] [address] Neutrophil pct 78.0 % NEEL Comment: Interpretive Data Percent cell count reference ranges are not reported, since discordance with absolute values may lead to misinterpretation of CBC data. Current Interpretive Data was last revised on 2017. Testing performed by: [address] [address] Imm gran pct 0.6 % [facility] Comment: Interpretive Data Percent cell count reference ranges are not reported, since discordance with absolute values may lead to misinterpretation of CBC data. Current Interpretive Data was last revised on 2017. Testing performed by: [address] [address] Lymphocyte pct 11.5 % [facility] Comment: Interpretive Data Percent cell count reference ranges are not reported, since discordance with absolute values may lead to misinterpretation of CBC data. Current Interpretive Data was last revised on 2017. Testing performed by: [address] [address] Monocyte pct 8.7 % [facility] Comment: Interpretive Data Percent cell count reference ranges are not reported, since discordance with absolute values may lead to misinterpretation of CBC data. Current Interpretive Data was last revised on 2017. Testing performed by: [address] [address] Eosinophil pct 0.8 % [facility] Comment: Interpretive Data Percent cell count reference ranges are not reported, since discordance with absolute values may lead to misinterpretation of CBC data. Current Interpretive Data was last revised on 2017. Testing performed by: [address] [address] Basophil pct 0.4 % [facility] Comment: Interpretive Data Percent cell count reference ranges are not reported, since discordance with absolute values may lead to misinterpretation of CBC data. Current Interpretive Data was last revised on 2017. Testing performed by: [address] [address] Blood 10/02/2024 9:51 PM CDT 10/02/2024 9:57 PM CDT us María Elena Calvo MD LAB BLOOD ORDERABLES Renee antunez Result NEEL [address] [place] [address] Department [place] [address] * (ABNORMAL) CBC with auto differential (10/02/2024 9:51 PM CDT) [facility] WBC 16.57(H) 3.80 - 9.90 K/cumm Comment:Testing performed by : [address] [address] Hgb 13.9 13.0 - 17.5 g/dL NEEL Comment:Testing performed by : [address], [address] Hct 41.0 38.9 - 50.3 % NEEL Comment:Testing performed by : [address], [address] Plt 281 150 - 400 K/cumm NEEL Comment:Testing performed by : [address] [address] MPV 9.9 9.1 - 12.3 fL NEEL Comment:Testing performed by : [address], [address] RBC 4.94 4.30 - 5.80 M/cumm NEEL Comment:Testing performed by : [address] [address] MCV 83.0 81.3 - 96.4 fL NEEL Comment:Testing performed by : [address] [address] MCH 28.1 27.1 - 33.3 pg NEEL Comment:Testing performed by : [address], [address] MCHC 33.9 32.3 - 35.7 g/dL NEEL Comment:Testing performed by : [address], [address] RDW CV 15.4(H) 11.1 - 14.9 % NEEL Comment:Testing performed by : [address] [address] RDW SD 46.5 35.7 - 48.1 fL NEEL Comment:Testing performed by : [address], [address] NRBC abs 0.00 0.00 - 0.01 K/cumm NEEL Comment:Testing performed by : [address] [address] Blood Venous blood specimen / Unknown 10/02/2024 9:51 PM CDT 10/02/2024 9:57 PM CDT María Elena Calvo MD LAB BLOOD ORDERABLES Renee l Result Performing Organization Address [facility] Co de Phone Number [address] [employer] [address] * (ABNORMAL) Lipase (10/02/2024 9:51 PM CDT) [facility] Lipase 444(H) 10 - 99 Units/L Comment:Testing performed by : [address] [address] Blood Venous blood specimen / Unknown 10/02/2024 9:51 PM CDT 10/02/2024 9:57 PM CDT María Elena Calvo MD LAB BLOOD ORDERABLES Renee l Result Performing Organization Address [facility] Co de Phone Number [address] [address] * Comprehensive metabolic panel (10/02/2024 9:51 PM CDT) [facility] Sodium 143 135 - 145 mmol/L Comment:Testing performed by : [address] [address] Potassium, pl 3.9 3.3 - 4.9 mmol/L NEEL SMITH Comment:Testing performed by : [address] [address] Chloride 107 97 - 110 mmol/L NEEL Comment:Testing performed by : [address] [address] CO2 22 22 - 32 mmol/L NEEL SMITH Comment:Testing performed by : [address] [address] Anion gap 14 2 - 15 mmol/L NEEL Comment:Testing performed by : [address] [address] BUN 7 6 - 25 mg/dL NEEL Comment:Testing performed by : [address], [place]., [address] Creatinine 1.08 0.80 - 1.30 mg/dL NEEL Comment:Testing performed by : [address] [address] Glucose 129 70 - 199 mg/dL [facility] Comment: Interpretive Data Fasting glucose >/= [...] was last revised 2022. Testing performed by: [address] [address] Calcium 10.0 8.5 - 10.3 mg/dL NEEL Comment:Testing performed by : [address] [address] Bilirubin, total 0.3 0.1 - 1.2 mg/dL NEEL Comment:Testing performed by : [address] [address] Protein, pl 7.2 6.5 - 8.5 g/dL NEEL Comment:Testing performed by : [address] [address] Albumin 4.5 3.5 - 5.0 g/dL NEEL Comment:Testing performed by : [address] [address] Alk phos 84 40 - 130 Units/L NEEL Comment:Testing performed by : [address] [address] ALT 28 7 - 55 Units/L NEEL SMITH Comment:Testing performed by : [facility], [address] [place] [address]., [address] AST 37 10 - 50 Units/L NEEL Comment:Testing performed by : [facility], [address] [place] [address]., [address] Blood 10/02/2024 9:51 PM CDT 10/02/2024 9:57 PM CDT us María Elena Calvo MD LAB BLOOD ORDERABLES Renee antunez Result [facility] [address] [facility] [place] [address] * CT Abdomen Pelvis W Contrast (09/30/2024 [...] Esa Cao M.D. AG: GONZALES Report ID: [id number] Reading Location: [place] [address] Procedure Note Esa Cao MD - 09/30/2024 [...] Esa Cao M.D. AG: GONZALES Report ID: [id number] Reading Location: [id number] Radha Casas DO IMG CT PROCEDURES Final Result * (ABNORMAL) Urinalysis reflex to microscopic and culture Urine (09/30/2024 5:55 PM CDT) Color, ur Yellow Yellow Comment:Testing performed by : [facility], [address] [place] [address]., [address] Clarity, ur Clear Clear NEEL Comment:Testing performed by : [address], [place]., [address] Specific gravity, ur 1.035(H) 1.003 - 1.030 NEEL Comment:Testing performed by : [address], [place]., [address] pH, urine 6.0 NEEL Comment: Interpretive Data U rine pH is affected by diet, medications, systemic acid-base disturbances, and renal tubular function. pH may affect urinary stone formation. For example, urine pH below 6.0 may help reduce the tendency for calcium phosphate stones and pH greater than 6.0 may reduce the tendency for uric acid stone formation. Source: [facility] [employer] Current Interpretive Data was last revised on 2017 Testing performed by: [address] [address] Protein, ur ql 1+(A) Negative NEEL Comment:Testing performed by : [address] [address] Glucose, ur ql Negative Negative NEEL Comment:Testing performed by : [address] [address] Ketones, ur 1+(A) Negative NEEL Comment:Testing performed by : [address] [address] Bilirubin, ur Negative Negative NEEL Comment:Testing performed by : [address] [address] Blood, ur Negative Negative NEEL Comment:Testing performed by : [address], [place]., [address] Urobilinogen, ur 2.0(A) <2.0 mg/dL NEEL Comment:Testing performed by : [address], [place]., [address] Nitrite, ur Negative Negative NEEL Comment:Testing performed by : [address] [address] Leukocyte esterase, ur Negative Negative NEEL Comment:Testing performed by : [address] [address] UA reflex comment Reflex to microscopic UA will be performed. NEEL Comment:Testing performed by : [address] [address] Urine 09/30/2024 5:55 PM CDT 09/30/2024 5:57 PM CDT Radha Casas DO LAB MICROBIOLOGY - GENERAL ORDE RABLES Final Result Performing Organization Address [facility] Co de Phone Number NEEL [address] [facility] [place] [address] * (ABNORMAL) Urinalysis, microscopic only (09/30/2024 5:55 PM CDT) WBC, ur 6-10(A) 0 - 5 /HPF Comment:Testing performed by : [address] [address] RBC, ur 3-5(A) 0 - 2 /HPF NEEL Comment:Testing performed by : [address] [address] Epithelial cells, squamous, ur 6-10(A) 0 - 5 /HPF NEEL Comment:Testing performed by : [address] [address] Mucous, ur Present(A) NEEL Comment:Testing performed by : [address] [address] Culture Reflex Comment Reflex conditions for urine culture (WBC >10) not met. NEEL Comment:Testing performed by : [address] [address] Urine 09/30/2024 5:55 PM CDT 09/30/2024 5:57 PM CDT Radha Casas DO LAB URINE ORDERABLES Final Resu lt Performing Organization Address [facility]/ZIP Co de Phone Number NEEL [address] [facility] [place] [address] * eGFR (09/30/2024 4:01 PM CDT) eGFR [...] was last reviewed 2021. Testing performed by: [address] [address] Blood 09/30/2024 4:01 PM CDT 09/30/2024 4:06 PM CDT Radha Casas DO LAB BLOOD ORDERABLES Final Resu lt NEEL [address] [facility] [place] [address] * Differential, auto (09/30/2024 4:01 PM CDT) Pathologist [facility] Neutrophil abs 5.11 1.50 - 6.50 K/cumm Comment:Testing performed by : [address] [address] Imm gran abs 0.04 0.00 - 0.10 K/cumm NEEL SMITH Comment:Testing performed by : [address] [address] Lymphocyte abs 1.62 0.80 - 3.30 K/cumm NEEL Comment:Testing performed by : [address] [address] Monocyte abs 0.77 0.20 - 0.80 K/cumm [facility] Comment:Testing performed by : [address] [address] Eosinophil abs 0.18 0.00 - 0.50 K/cumm [facility] Comment:Testing performed by : [address] [address] Basophil abs 0.05 0.00 - 0.10 K/cumm [facility] Comment:Testing performed by : [address] [address] Neutrophil pct 65.9 % [facility] Comment: Interpretive Data Percent cell count reference ranges are not reported, since discordance with absolute values may lead to misinterpretation of CBC data. Current Interpretive Data was last revised on 2017. Testing performed by: [address] [address] Imm gran pct 0.5 % [facility] Comment: Interpretive Data Percent cell count reference ranges are not reported, since discordance with absolute values may lead to misinterpretation of CBC data. Current Interpretive Data was last revised on 2017. Testing performed by: [address] [address] Lymphocyte pct 20.8 % [facility] Comment: Interpretive Data Percent cell count reference ranges are not reported, since discordance with absolute values may lead to misinterpretation of CBC data. Current Interpretive Data was last revised on 2017. Testing performed by: [address] [address] Monocyte pct 9.9 % [facility] Comment: Interpretive Data Percent cell count reference ranges are not reported, since discordance with absolute values may lead to misinterpretation of CBC data. Current Interpretive Data was last revised on 2017. Testing performed by: [address] [address] Eosinophil pct 2.3 % [facility] Comment: Interpretive Data Percent cell count reference ranges are not reported, since discordance with absolute values may lead to misinterpretation of CBC data. Current Interpretive Data was last revised on 2017. Testing performed by: [address] [address] Basophil pct 0.6 % NEEL SMITH Comment: Interpretive Data Percent cell count reference ranges are not reported, since discordance with absolute values may lead to misinterpretation of CBC data. Current Interpretive Data was last revised on 2017. Testing performed by: [address] [address] Blood 09/30/2024 4:01 PM CDT 09/30/2024 4:06 PM CDT us Radha Casas DO LAB BLOOD ORDERABLES Final Resu lt NEEL SMITH [address] [facility] [place] [address] * (ABNORMAL) CBC with auto differential (09/30/2024 4:01 PM CDT) WBC 7.77 3.80 - 9.90 K/cumm Comment:Testing performed by : [address] [address] Hgb 14.5 13.0 - 17.5 g/dL NEEL SMITH Comment:Testing performed by : [address] [address] Hct 43.0 38.9 - 50.3 % NEEL SMITH Comment:Testing performed by : [address] [address] Plt 278 150 - 400 K/cumm NEEL SMITH Comment:Testing performed by : [address] [address] MPV 9.8 9.1 - 12.3 fL NEEL SMITH Comment:Testing performed by : [address] [address] RBC 5.18 4.30 - 5.80 M/cumm NEEL SMITH Comment:Testing performed by : [address] [address] MCV 83.0 81.3 - 96.4 fL NEEL SMITH Comment:Testing performed by : [address] [address] MCH 28.0 27.1 - 33.3 pg NEEL SMITH Comment:Testing performed by : [address] [address] MCHC 33.7 32.3 - 35.7 g/dL NELE SMITH Comment:Testing performed by : [address], [address] RDW CV 15.3(H) 11.1 - 14.9 % NEEL SMITH Comment:Testing performed by : [address] [address] RDW SD 46.4 35.7 - 48.1 fL NEEL SMITH Comment:Testing performed by : [address], [address] NRBC abs 0.00 0.00 - 0.01 K/cumm NEEL SMITH Comment:Testing performed by : [address], [address] Blood Venous blood specimen / Unknown 09/30/2024 4:01 PM CDT 09/30/2024 4:06 PM CDT Radha Casas LAB BLOOD ORDERABLES Final Resu lt Performing Organization Address City/[facility]/ZIP Co de Phone Number [address] [place] [address] * Lipase (09/30/2024 4:01 PM CDT) Pathologist [facility] Lipase 51 10 - 99 Units/L Comment:Testing performed by : [address] [address] Blood Venous blood specimen / Unknown 09/30/2024 4:01 PM CDT 09/30/2024 4:06 PM CDT Radha Yessenia LAB BLOOD ORDERABLES Final Resu lt [address] [employer] [place] [address] * Comprehensive metabolic panel (09/30/2024 4:01 PM CDT) Sodium 141 135 - 145 mmol/L Comment:Testing performed by : [address] [address] Potassium, pl 4.0 3.3 - 4.9 mmol/L NEEL Comment:Testing performed by : [address] [address] Chloride 106 97 - 110 mmol/L [facility] Comment:Testing performed by : [address], [place]., [address] CO2 24 22 - 32 mmol/L [facility] Comment:Testing performed by : [address] [address] Anion gap 11 2 - 15 mmol/L [facility] Comment:Testing performed by : [address] [address] BUN 9 6 - 25 mg/dL [facility] Comment:Testing performed by : [address], [place]., [address] Creatinine 1.00 0.80 - 1.30 mg/dL [facility] Comment:Testing performed by : [address] [address] Glucose 107 70 - 199 mg/dL [facility] Comment: Interpretive Data Fasting glucose >/= 126 [...] was last revised 2022. Testing performed by: [address] [address] Calcium 9.6 8.5 - 10.3 mg/dL [facility] Comment:Testing performed by : [address] [address] Bilirubin, total 0.4 0.1 - 1.2 mg/dL NEEL SMITH Comment:Testing performed by : [address] [address] Protein, pl 7.1 6.5 - 8.5 g/dL NEEL SMITH Comment:Testing performed by : [address] [address] Albumin 4.3 3.5 - 5.0 g/dL NEEL Comment:Testing performed by : [address] [address] Alk phos 87 40 - 130 Units/L NEEL Comment:Testing performed by : [address] [address] ALT 25 7 - 55 Units/L NEEL Comment:Testing performed by : [address] [address] AST 25 10 - 50 Units/L NEEL Comment:Testing performed by : [address] [address] Blood 09/30/2024 4:01 PM CDT 09/30/2024 4:06 PM CDT Radha Casas DO LAB BLOOD ORDERABLES Final Resu lt NEEL [address] [facility] [place], [place] [id number] from Last 3 Months Advance Directives For more information, please contact: [phone] * Full Code (Latest Code Status on [...] 8:00 AM 06/30/2022 5:06 PM Care Teams Ur Coordinator Relationship Specialty Start Date End Date Td Lopez MD [address] [facility] [address] [place] [address] PCP - General Family Medicine 11/09/20 Angie Woodard MD [address] [facility] [address] [place] [address] Consulting Physician Gastroenterology 07/17/21 Vimal Woodruff MD [address] [facility] [address] [place] [address] Consulting Physician Gastroenterology 02/10/22
--- OUTSIDE RECORDS SUMMARY | 2024-11-29 00:46 | XMS_ITS | Clinical Summary ---
Author Organization [facility] Address [facility] [place] [address] Care Team Providers Care Migratory Game Bird Biologist Name Role Phone Td Lopez MD Primary Care Provider [phone] Allergies Active Allergy Reactions Criticality Noted Date Comments Capsaicin Other (see comment) Low 05/20/2019 Pt states it gets into his scars and causes a lot of pain Doxycycline GI Upset Low 03/29/2017 Haloperidol Other (see comment) 01/29/2022 Musculoskeletal pain Metoclopramide Myalgias 03/29/2017 Sulfa Antibiotics Myalgias,Other (see comment) Medium 03/29/2017 Reaction: neurological symptoms per patient Medications CREON [id number] units CAPSULE ENTERIC COATED PARTICLES Take 36,000 [...] hours as needed for Nausea. 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 Manipulative behavior 07/14/2021 COVID-19 vaccine series completed 06/27/2021 Overview (09/04/2022): Moderna x2 Drug-seeking behavior 06/27/2021 History of 2019 novel coronavirus disease (COVID -19) 06/27/2021 Drug abuse and dependence ([facility]) 09/2020 Overview (09/04/2022): Last Assessment & Plan: - using mariajuana occasionally; has had frequent rx for opioids in ER - pt claims at least several days since last ER visit with narcotics given - record review suggests at least 2 wks - will check UDS Acute recurrent pancreatitis ([facility]) Other chronic pancreatitis ([facility]) Overview (09/04/2022): Last Assessment & Plan: - stable today - continue current medications - f/u with Dr Rosas as planned - encouraged pt to come to clinic instead of going to ER next time he has abdominal pain 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 Hyperemesis 10/18/2019 Annual physical exam [...] Colitis 02/18/2019 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[facility]) 10/18/2018 Mild malnutrition ([facility]) 10/18/2018 Neutrophilic leukocytosis 10/18/2018 Tobacco use disorder 10/18/2018 Other chronic pancreatitis ([facility]) 02/2019 Overview (02/18/2019): Overview: Added automatically from request for surgery [id number] Chronic abdominal pain 03/30/2017 Assessment & Plan (03/30/2017 12:03 PM DIRECTOR OF ANALYTICAL DEVELOPMENT): Acute on chronic, stable Patient with possible [...] Continue to advance diet as tolerated Sepsis ([facility]) 03/30/2017 Assessment & Plan (03/30/2017 12:03 PM DIRECTOR OF ANALYTICAL DEVELOPMENT): Present on admission, resolved Lactic acid 2.8 [...] 03/30/2017 Assessment & Plan (03/30/2017 12:25 AM DIRECTOR OF ANALYTICAL DEVELOPMENT): - established, controlled - continue home fluoxetine, nortriptyline GERD (gastroesophageal reflux disease) 7 Assessment & Plan (03/30/2017 12:25 AM DIRECTOR OF ANALYTICAL DEVELOPMENT): - established, controlled - continue home nexium Hypertension 03/30/2017 Overview (03/30/2017): - established, controlled - continue home metoprolol Assessment & Plan (03/30/2017 1:01 AM DIRECTOR OF ANALYTICAL DEVELOPMENT): - established, controlled - continue home metoprolol Influenza 03/30/2017 Depression 03/30/2017 Overview (02/18/2019): Overview: Last Assessment & Plan: - established, controlled - continue home fluoxetine, nortriptyline Flu 03/29/2017 Assessment & Plan (03/30/2017 12:03 PM DIRECTOR OF ANALYTICAL DEVELOPMENT): Acute, influenza A + on admission, asymptomatic [...] Encounters Date Type Department Care Team Description 10/11/2024 12:31 AM CDT - 10/11/2024 3:[address] [facility] Emergency Room [id number] [place] [address] Clem Jones MD Abdominal Pain Discharge Disposition: Home or Self Care (Routine Discharge) 10/11/2024 Travel from Last 3 Months Family History [...] week 09/28/2022 How often do you attend anabaptist or evangelical serv ices? Never 09/28/2022 Do you belong to any clubs o r organizations such as anabaptist groups, unions, fraternal or athletic groups, or [...] and heating? Not hard at all 10/18/2022 [facility] - Occupational [...] Sex Assigned at Male 06/21/2024 7:21 PM DIRECTOR OF ANALYTICAL DEVELOPMENT Legal Sex Male 8:10 AM CDT Gender Identity Not on file Sexual Orientation Not on file Last Filed Vital Signs Vital Sign Reading Time Taken Comments Blood Pressure 126/61 10/11/2024 3:00 AM CDT Pulse 90 10/11/2024 3:00 AM CDT Temperature 36.7 C (98 F) 10/11/2024 3:00 AM CDT Respiratory Rate 16 10/11/2024 3:00 AM CDT Oxygen Saturation 97% 10/11/2024 3:00 AM CDT Inhaled Oxygen Concentration - - Weight 74.8 kg (165 lb) 10/11/2024 12:38 AM CDT Height 177.8 cm (5' 10) 10/11/2024 12:38 AM CDT Body Mass Index 23.68 10/11/2024 12:38 AM CDT Plan of Treatment Health Maintenance Due Date Last Done Comments Annual Physical 1984 Hepatitis B Vaccines (1 of 3 - 19+ 3-dose series) 2000 Pneumococcal Vaccine: Pediatrics (0 to 5 Years) and At-Risk Patients (6 to 49 Years) (1 of 2 - PCV) 2000 HPV Vaccines (1 - 3-dose SCD M series) 2008 COVID-19 Vaccine (2023-2 5 season) 2024 10/29/2021, 11/02/2020, 10/05/2020 DTaP, Tdap and Td Vaccines ( 2 - Td or Tdap) 10/30/2031 10/29/2021 Hepatitis C Completed 03/27/2018 Meningococcal B Vaccine Aged Out No l [...] discharge from hospital Lifestyle No Sintia Zhao, cadd manager Procedure Name Priority Date/Time Associated Diagnosis Comments ECG 12-LEAD STAT 10/11/2024 1:11 AM CDT LIPASE STAT 10/11/2024 12:51 AM CDT PROTHROMBIN TIME, VENOUS STAT 10/11/2024 12:51 AM CDT COMPREHENSIVE METABOLIC PANEL STAT 10/11/2024 12:51 AM CDT CBC W/DIFF AUTOMATED STAT 10/11/2024 12:51 AM CDT from Last 3 Months Results * ECG 12 lead (10/11/2024 1:11 AM CDT) 10/11/2024 1:11 AM CDT Narrative [facility] RAD - 10/17/2024 1:51 PM CDT [facility] Test Date: 2024-10-11 Pat Name: LIBERTAD BROWN Department: 85 Room: EXAM 202 Gender: Male Clinical Biostatistician: : 1980 Requested By: CLEM JONES Order Number: [id number] Reading MD: Kwadwo Dominguez Measurements Intervals Mcandrews Rate: 72 P: 15 CA: 95 QRS: 48 QRSD: 109 T: 64 QT: 364 QTc: 398 Interpretive Statements SINUS RHYTHM WITH SINUS ARRHYTHMIA WITH SHORT CA INTERVAL INCOMPLETE RIGHT BUNDLE BRANCH BLOCK [90+ ms QRS DURATION, TERMINAL R IN V1/V2, 40+ ms S IN I/aVL/V4/V5/V6] Compared to ECG 01/03/2024 15:01:45 Incomplete right bundle-branch block now present Intraventricular conduction delay no longer present Procedure Note Kwadwo Dominguez MD - 10/17/2024 [facility] Test Date: 2024-10-11 Pat Name: LIBERTAD BROWN Department: 85 Room: EXAM 202 Gender: Male Clinical Biostatistician: : 1980 Requested By: CLEM JONES Order Number: [id number] Reading MD: Kwadwo Dominguez Measurements Intervals Mcandrews Rate: 72 P: 15 CA: 95 QRS: 48 QRSD: 109 T: 64 QT: 364 QTc: 398 Interpretive Statements SINUS RHYTHM WITH SINUS ARRHYTHMIA WITH SHORT CA INTERVAL INCOMPLETE RIGHT BUNDLE BRANCH BLOCK [90+ ms QRS DURATION, TERMINAL RIN V1/V2, 40+ ms S IN I/aVL/V4/V5/V6] Compared to ECG 01/03/2024 15:01:45 Incomplete right bundle-branch block now present Intraventricular conduction delay no longer present us Clem Jones MD ECG ORDERABLES Final R esult Performing Organization Address City/[facility]/ZIP Co de Phone Number [facility]) RAD * PROTIME/INR, VENOUS (10/11/2024 12:51 AM CDT) PROTIME 10.8 9.1 - 12.4 SEC 10/11/2024 1:[address] [facility] INR 0.9 10/11/2024 1:[address] [facility] Comment: Recommend INR ranges for Oral Anticoagulant Therapy: Mechanical Cardiac Values 2.5-3.5 All others indication 2.0-3.0 10/11/2024 12:5 1 AM CDT us Clem Jones MD LABORATORY Final R esult [facility] [address] [place] [address], [place] [phone] * (ABNORMAL) COMPREHENSIVE METABOLIC PANEL (10/11/2024 12:51 AM CDT) GLUCOSE 127(H) 70 - 99 MG/DL 10/11/2024 1:26 AM [facility] BUN 6(L) 7 - 18 MG/DL 10/11/2024 1:26 AM [facility] CREATININE S/P/B 0.96 0.7 - 1.3 MG/DL 10/11/2024 1:26 AM [facility] SODIUM S/P/B 143 136 - 145 MMOL/L 10/11/2024 1:26 AM [facility] POTASSIUM S/P/B 4.2 3.5 - 5.1 MMOL/L 10/11/2024 1:26 AM [facility] CHLORIDE S/P/B 105 100 - 108 MMOL/L 10/11/2024 1:26 AM [facility] CO2 26.5 21 - 32 MMOL/L 10/11/2024 1:26 AM [facility] CALCIUM S/P/B 9.5 8.5 - 10.1 MG/DL 10/11/2024 1:26 AM [facility] BILIRUBIN TOTAL S/P/B 0.6 0.2 - 1.2 MG/DL 10/11/2024 1:26 AM [facility] TOTAL PROTEIN S/P/B 7.6 6.4 - 8.2 G/DL 10/11/2024 1:26 AM [facility] ALBUMIN S/P/B 4.2 3.4 - 5.0 G/DL 10/11/2024 1:26 AM [facility] AST 28 15 - 37 U/L 10/11/2024 1:26 AM [facility] ALT 23 16 - 60 U/L 10/11/2024 1:26 AM [facility] ALKALINE PHOSPHATASE S/P/B 81 50 - 136 U/L 10/11/2024 1:[address] [facility] ANION GAP 11.5 5 - 15 MMOL/L 10/11/2024 1:[address] [facility] BUN CREATININE RATIO 6.2 6 - 26 10/11/2024 1:[address] [facility] A/G RATIO 1.2 1.0 - 2.0 RATIO 10/11/2024 1:[address] [facility] GFR ESTIMATE >90 >90 ML/MIN/1.7 3 M2 10/11/2024 1:[address] [facility] Comment: NOTE: eGFR is not calculated for patients <18 years of age. This is an estimated GFR calculation using the new CKD EPI creatinine equation without race and so does not require a correction factor for race. This estimated GFR should not be used for calculating drug doses. 10/11/2024 12:5 1 AM CDT us Clem Jones MD LABORATORY Final R esult [facility] [address] [place] [address], [place] [phone] * (ABNORMAL) CBC W/DIFF AUTOMATED (10/11/2024 12:51 AM CDT) WBC 13.90(H) 4.4 - 11.0 x10'3/uL 10/11/2024 1:[address] [facility] RBC 4.98 4.50 - 5.90 x10'6/uL 10/11/2024 1:[address] [facility] HGB 14.1 14.0 - 17.5 G/DL 10/11/2024 1:[address] [facility] HCT 42.3 41.5 - 50.4 % 10/11/2024 1:[address] [facility] MCV 84.9 80.0 - 96.0 FL 10/11/2024 1:[address] [facility] MCH 28.3 26.5 - 31.4 PG 10/11/2024 1:[address] [facility] MCHC 33.3 31.9 - 34.8 G/DL 10/11/2024 1:[address] [facility] RDW 15.4(H) 12.3 - 14.3 % 10/11/2024 1:[address] [facility] PLT 314 151 - 353 x10'3/uL 10/11/2024 1:[address] [facility] MPV 11.0 9.7 - 11.9 FL 10/11/2024 1:[address] [facility] RBC MORPHOLOGY NORMAL 10/11/2024 1:[address] [facility] PLT MORPH. NORMAL 10/11/2024 1:[address] [facility] WBC MORPHOLOGY NORMAL 10/11/2024 1:[address] [facility] LYMPHOCYTES % 7.9(L) 15.8 - 45.0 % 10/11/2024 1:[address] [facility] NEUTROPHILS % 87.4(H) 42.1 - 71.9 % 10/11/2024 1:[address] [facility] MONOCYTES % 3.8(L) 5.7 - 12.5 % 10/11/2024 1:[address] [facility] EOSINOPHILS 0.1 0.0 - 5.6 % 10/11/2024 1:[address] [facility] BASOPHILS 0.4 0.0 - 1.3 % 10/11/2024 1:[address] [facility] ABS. NEUTROPHILS 12.15(H) 1.40 - 6.00 x10'3/uL 10/11/2024 1:[address] [facility] IMMATURE GRANS % 0.4 0.0 - 0.5 % 10/11/2024 1:[address] [facility] ABS. LYMPHOCYTES 1.10 0.80 - 4.70 x10'3/uL 10/11/2024 1:[address] [facility] 10/11/2024 12:5 1 AM CDT Clem Jones MD LABORATORY Final R esult Performing Organization Address City/[facility]/ZIP Co de Phone Number [facility] [address] [place] [address], [place] [phone] * LIPASE (10/11/2024 12:51 AM CDT) LIPASE 36 16 - 77 UNITS/L 10/11/2024 1:[address] [facility] 10/11/2024 12:5 1 AM CDT Clem Jones MD LABORATORY Final R esult Performing Organization Address City/[facility]/ZIP Co de Phone Number [facility] [address] [place] [address], [place] [phone] from Last 3 Months Insurance AISHA Advance Directives * Full Code (Latest Code [...] 6:07 PM 10/19/2019 4:11 PM Care Teams Migratory Game Bird Biologist Relationship Specialty Start Date End Date Td Lopez MD PCP - General FAMILY PRACTICE 08/18/19
--- OUTSIDE RECORDS SUMMARY | 2024-11-29 00:46 | XMS_ITS | Clinical Summary ---
Author Organization [facility] Address [address] [place] [address] Care Team Providers Care Manager Epic Name Role Phone Alee Zhao MD Primary Care Provider [phone] Source Comments [facility],non-owned Affiliates and Associated Physician Practices is amultiple site organization consisting of ambulatory clinics and hospital sitesin [place], [place], [place] and [place]. This disclosure is being madepursuant to the Care Everywhere program and may not contain all information available regarding this patient. Last updated 18.[facility] Allergies Active Allergy Reactions Criticality Noted Date [...] on file Legal Sex Male 7:46 PM SUPERVISOR DIAGNOSTIC Gender Identity Not on file Sexual Orientation Not on file Last Filed Vital Signs Vital Sign Reading Time Taken Comments Blood Pressure 120/71 03/17/2019 5:03 PM SUPERVISOR DIAGNOSTIC Pulse 75 03/17/2019 5:03 PM SUPERVISOR DIAGNOSTIC Temperature 36.9 C (98.4 F) 03/17/2019 2:00 PM SUPERVISOR DIAGNOSTIC Respiratory Rate 17 03/17/2019 5:03 PM SUPERVISOR DIAGNOSTIC Oxygen Saturation 99% 03/17/2019 5:03 PM SUPERVISOR DIAGNOSTIC Inhaled Oxygen Concentration - - Weight 77.1 kg (170 lb) 03/17/2019 2:00 PM SUPERVISOR DIAGNOSTIC Height 177.8 cm (5' 10) 03/17/2019 2:00 PM SUPERVISOR DIAGNOSTIC Body Mass Index 24.39 03/17/2019 2:00 PM SUPERVISOR DIAGNOSTIC Plan of Treatment Health Maintenance Due Date Last Done Comments LIPID TESTING 1980 DTAP/TDAP/TD VACCINES (1 - Tdap) 2000 HEPATITIS B VACCINE (1 of 3 - 19+ 3-dose series) 2000 HPV VACCINE (1 - 3-dose SCDM series) 2008 COVID-19 VACCINE ( - 2023-2 5 season) 2024 DEPRESSION SCREENING 05/11/2024 INFLUENZA VACCINE (#1) 2025 ZOSTER VACCINE (1 of 2) 2031 [...] RFLX NAAT QUANT STAT 03/27/2018 9:12 PM SUPERVISOR DIAGNOSTIC HIV-1 HIV-2 ANTIGEN/ANTIBODY STAT 03/27/2018 9:12 PM SUPERVISOR DIAGNOSTIC from Last 3 Months or Most Recently Relevant to Health Maintenance Results * HIV-1 HIV-2 ANTIGEN/ANTIBODY (03/27/2018 9:12 PM SUPERVISOR DIAGNOSTIC) HIV Antigen/Antibod y 1 & 2 Non-reacti ve Non-react nemesio 03/27/2018 10:17 PM SUPERVISOR DIAGNOSTIC [facility] Comment: Neither HIV-1 p24 Antigen nor HIV-1/HIV-2 Antibodies are detected. Blood BLOOD SPECIMEN / Unknown Venipuncture / Unknown 03/27/2018 9:12 PM SUPERVISOR DIAGNOSTIC 03/27/2018 9:21 PM SUPERVISOR DIAGNOSTIC us Davi Patrick MD LAB - HEMATOLOGY ORDERABLES Fi nal Result Performing Organization Address [facility] Co de Phone Number [address] [phone] * HEPATITIS C AB SCREEN RFLX NAAT QUANT (03/27/2018 9:12 PM SUPERVISOR DIAGNOSTIC) Hepatitis C Antibody Non-react nemesio Non-reac tive 03/27/2018 10:20 PM SUPERVISOR DIAGNOSTIC [facility] Comment: Hepatitis C Antibody screen indicates no serologic evidence of past or current infection with Hepatitis C Virus. Patients with unexplained liver disease who are immunocompromised or suspected of having acute Hepatitis C infection may benefit from Nucleic Acid Test (RINKU) for Hepatitis C Viral RNA to confirm Hepatitis C status. Blood BLOOD SPECIMEN / Unknown Venipuncture / Unknown 03/27/2018 9:12 PM SUPERVISOR DIAGNOSTIC 03/27/2018 9:21 PM SUPERVISOR DIAGNOSTIC us Davi Patrick MD LAB - CHEMISTRY ORDERABLES Fin al Result Performing Organization Address [facility] Co de Phone Number [address] [phone] from Last 3 Months or Most Recently Relevant to Health Maintenance Insurance [facility] Care Teams Manager Epic Relationship Specialty Start Date End Date Alee Zhao MD [address] [place] [phone] PCP - General Family Medicine 03/25/18
--- OUTSIDE RECORDS SUMMARY | 2024-11-29 00:46 | XMS_ITS | Patient Health Record ---
Author Organization [facility] Address [address] [facility] [address] [place] [address] Care Team Providers Care Technology Sales Specialist Name Role Phone John TUCKER, Td Primary Care Provider Tucker FIGUEROA GLASS CURVATURE GAUGER, NATALIYA Unavailable Allergies Allergen (clinical drug ingredient) [...] Problem Status W/U Status Risk Notes Problem Other chronic pancreatitis (K86.1) Active confirmed Plan Of Treatment No Information Insurance Providers Payer Name Payer Address Payer Phone Subscriber Number Group Number Insured Name Patient Relationship to Insured Coverage Start Date Coverage End Date [address] [place], [place] [id number] Donovan Bailey Self - patient is the insured Medical (General) History Medical History History ICD Code chronic pancreatitis cyclic vomiting hyperemesis cannabis Surgical History Surgery Date(Month/Year) cholecystectomy ERCP
--- OUTSIDE RECORDS SUMMARY | 2024-11-29 00:46 | XMS_ITS ---
Author Organization [facility] Address [address] [place] [address] Care Team Providers Care Character Impersonator Name Role Phone John TUCKER, Td Primary Care Provider Tucker FIGUEROA NP, NATALIYA Porras REASON FOR VISIT FU ER Visit Encounters Encounter Location Date Provider Diagnosis [facility] [address] [place] [address] 02/29/2024 NATALIYA FIGUEROA Plan Of Treatment No Information Progress Notes * Donovan BROWN MDOB: 2 (44 yo M)Acc No.[id number]:02/29/2024 Progress Notes Patient: Donovan HASSAN Appointment Provider: Enrrique Figueroa CNP :1980 A ge:43 Y S ex:Male Date:02/29/2024 [address] [facility] Pcp:Td Lopez MD Subjective: * Chief Complaints: * 1 . FU ER Visit. * Medical History: Objective: * Vitals: Assessment: Plan: * Treatment: * * Electronic signature of AMANDA FIGUEROA NP, MSN SCAFFOLDER-BC on 11/29/2024 at 01:46 AM EDT Sign off status: Pending * Appointment Provider: Enrrique Figueroa CNP Date: 1 Generated for Printing/Faxing/eTransmitting on: 0 11/29/2024 01:46 AM EDT
--- OUTSIDE RECORDS SUMMARY | 2024-11-29 00:46 | XMS_ITS | Encounter Summary ---
Author Organization [facility] Address [address] [place] [address] Care Team Providers Care Swimmer Name Role Phone Td Lopez MD Primary Care Provider + Angie Woodard MD Unavailable [phone] Vimal Woodruff MD Unavailable PastorAlannah MA Unavailable [phone] PastorAlannah fair MA Unavailable [phone] PastorAlannah fair MA Unavailable [phone] Eun Aarna RN Unavailable Lakshmi Garcia LPN Unavailable [phone] Niki Burns MA Unavailable Encounter Details Date Type Department Care Team (Late st Contact Info) Description 12/21/2017 Documentation [address] [place] [id number] Shannan Farfan, JOHN Social History Tobacco Use Types Packs/Day Years Used Date Smoking Tobacco: Every Day Sex and Gender Information Value Date Recorded Sex Assigned at Not on file Legal Sex Male 3:38 AM RN CARDIAC Gender Identity Not on file Sexual Orientation [...] COVID: Suspected 06/27/2021 06/27/2021 06/27/2021 12:53 PM RN CARDIAC COVID19 06/27/2021 06/27/2021 07/08/2021 3:05 AM RN CARDIAC COVID: Recovered Comment:Added based on recent COVID infection. 07/08/2021 07/14/2021 11/05/2021 3:05 AM C DT COVID: Suspected 05/20/2022 05/20/2022 05/20/2022 2:32 AM RN CARDIAC COVID: Suspected 09/20/2023 09/20/2023 09/20/2023 9:26 PM CDT COVID: Suspected 10/04/2023 10/04/2023 10/04/2023 3:55 PM CDT documented as of this encounter Care Teams Swimmer Relationship Specialty Start Date End Date Td Lopez MD [address] [place] [address] PCP - General Family Medicine 11/09/20 Angie Woodard MD [address] [facility] [address] [place] [address] Consulting Physician Gastroenterology 07/17/21 Vimal Woodruff MD [address] [facility] [address] [place] [address] Consulting Physician Gastroenterology 02/10/22 Alannah Baumann MA [address] [place] [address] ACO Care Veterinarian Assistant 12/31/23 01/05/24 Alannah Baumann MA [address] [place] [address] ACO Care Veterinarian Assistant 06/29/24 06/30/24 Alannah Baumann MA [address] [place] [address] [address] [place] [address] ACO Care Veterinarian Assistant 08/03/24 08/03/24 Eun Arana RN [address] [place] [address] [address] [place] [address] Bias Binding Cutter 08/17/24 08/25/24 Lakshmi Garcia LPN [address] [place] [address] [address] [place] [address] Bias Binding Cutter 10/05/24 10/05/24 Niki Burns MA [address] [place] [address] [address] [place] [address] ACO Care Veterinarian Assistant 10/18/24 10/19/24 documented as of this encounter
--- OUTSIDE RECORDS SUMMARY | 2024-11-29 00:46 | XMS_ITS | Clinical Summary ---
Author Organization [facility] Address [address] [place] [address] Care Team Providers Care Electrocardiogram Technician Name Role Phone Td Lopez MD Primary Care Provider + Angie Woodard MD Unavailable [phone] Vimal Woodruff MD Unavailable [phone] Allergies Active Allergy Reactions Criticality Noted Date [...] 03/25/2024 Assessment & Plan (03/25/2024 11:50 AM ENGINE HOSTLER): - suspect just muscle strain - will check xray - offered PT but pt refused. Protein-calorie malnutrition, moderate 4 Abdominal pain, generalized 09/19/2023 Assessment & Plan (09/25/2023 12:23 PM CDT): - improving - will give small amount of norco until pt heals from his procedure - f/u with GI Current use of halfway anticoagulation 023 Assessment & Plan (09/25/2023 12:23 PM CDT): - stable - continue eliquis Assessment & Plan (03/20/2023 11:08 AM ENGINE HOSTLER): - restart eliquis due to life long need for anticoagulation History of thrombosis 03/20/2023 Assessment & Plan (09/25/2023 12:22 PM CDT): - stable - continue eliquis Assessment & Plan (03/20/2023 11:08 AM ENGINE HOSTLER): - restart eliquis due to life long [...] famotidine Assessment & Plan (03/20/2023 11:08 AM ENGINE HOSTLER): - stable - continue current medication Renal [...] eval. Assessment & Plan (03/25/2024 11:49 AM ENGINE HOSTLER): - ref to derm for eval Drug [...] pain Assessment & Plan (03/25/2024 11:49 AM ENGINE HOSTLER): - poor control - continue hyosciamine, famotidine, zofran - ref to GI for continued treatment Assessment & Plan (03/20/2023 11:07 AM ENGINE HOSTLER): - stable - continue current medication Duodenal [...] prn Assessment & Plan (07/15/2019 11:44 AM ENGINE HOSTLER): - stable - continue bentyl and amitriptyline [...] medication Assessment & Plan (07/15/2019 11:44 AM ENGINE HOSTLER): - stable - continue creon Annual physical [...] able Assessment & Plan (07/15/2019 11:46 AM ENGINE HOSTLER): - encourage healthy diet, exercise - check labs - encouraged quitting smoking Enteritis 02/18/2019 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 Assessment & Plan (07/15/2019 11:37 AM ENGINE HOSTLER): - encouraged pt to quit smoking Abdominal [...] GI Assessment & Plan (03/20/2023 11:07 AM ENGINE HOSTLER): - stable - continue current medication per [...] 0511/2023 Assessment & Plan (03/20/2023 11:08 AM ENGINE HOSTLER): - stable off meds - will monitor [...] 09/25/2023 Assessment & Plan (03/26/2021 11:41 AM ENGINE HOSTLER): - stable today - continue current medications [...] lexapro Assessment & Plan (07/15/2019 11:38 AM ENGINE HOSTLER): - stable - continue current plan Gastroesophageal reflux dise ase without esophagitis 07/15/2019 03/18/2023 Overview (07/15/2019): - GERD managed by Dr Woodard - Pt on omeprazole and carafate for sx control Assessment & Plan (01/01/2021 12:09 PM CDT): - stable - continue current medication Assessment & Plan (02/07/2020 2:32 PM CDT): - stable - continue current medication Assessment & Plan (07/15/2019 11:38 AM ENGINE HOSTLER): - stable - continue omeprazole and carafate Viral illness 07/08/2019 02/12/2021 Assessment & Plan (07/09/2019 9:12 AM ENGINE HOSTLER): Medrol Dosepak as directed. Recommended Mucinex plain [...] as this is not a viable terminal makeup operator solution - will ref to pain [...] medication Assessment & Plan (07/15/2019 11:36 AM ENGINE HOSTLER): - controlled - continue current plan Chronic [...] CDT - 11/26/2024 4:25 AM CDT Emergency [facility] Emergency Department [address] [place] [id number] Blue Warren MD Abdominal pain (Primary Dx); Nausea and vomiting, unspecified vomiting type Discharge Disposition: Discharge to home or self care 10/20/2024 [facility] ED Outreach [facility] Accountable Care Organization [address] [place] [address] Niki Burns MA 10/19/2024 [facility] ED Outreach [facility] Accountable Care Organization [address] [place] [address] Niki Burns MA 10/18/2024 1:45 PM CDT - 10/18/2024 7:54 PM CDT Emergency [facility] Emergency Department [address] [place] [id number] Oswaldo Burns MD Chronic abdominal pain (Primary Dx) Discharge Disposition: Discharge to home or self care 10/18/2024 [facility] ED Outreach [address] [address] Niki Burns MA 10/14/2024 12:14 AM CDT - 10/14/2024 2:13 AM CDT Emergency [facility] Emergency Department [address] [place] [address] Enteritis (Primary Dx) Discharge Disposition: Discharge to home or self care 10/13/2024 4:36 AM CDT - 10/13/2024 10:20 AM CDT Emergency [address] [address] Rodney Mejia MD Journagan, Kevin, MD Abdominal pain (Primary Dx); History of pancreatitis; Chronic abdominal pain; Nausea and vomiting, unspecified vomiting type Discharge Disposition: Discharge to home or self care 10/08/2024 7:54 PM CDT - 10/08/2024 8:06 PM CDT Emergency [facility] Emergency Department [address] [place] [address] Chronic abdominal pain (Primary Dx) Discharge Disposition: Discharge to home or self care 10/07/2024 5:29 AM CDT - 10/07/2024 8:34 AM CDT Emergency [address] [address] Jose Francisco Harper DO Prograis, Shannon Smith, MD Abdominal pain (Primary Dx); Chronic pancreatitis, unspecified pancreatitis type (HCC) Discharge Disposition: Discharge to home or self care 10/06/2024 11:00 AM CDT Office Visit [facility] [address] [facility] [address] [place] [phone] Td Lopez MD Abdominal pain (Primary Dx); Other chronic pancreatitis (HCC); Gastroesophageal reflux disease without esophagitis; Irritable bowel syndrome with both constipation and diarrhea 10/05/2024 [facility] IP Outreach [address] [address] Lakshmi Garcia LPN 10/04/2024 Telephone [facility] [address] [facility] [address] [place] [address] Td Lopez MD schedule [facility] appt 10/02/2024 9:53 PM CDT - 10/03/2024 11:39 AM CDT Hospital Encounter [facility] [address] [place] [address] María Elena Calvo MD Medavaram, Atul, MD Sada, MD Kirk Gardner, MD Eben Abdominal pain (Primary Dx); Acute pancreatitis, unspecified complication status, unspecified pancreatitis type; Pain, dental Discharge Disposition: Discharge to home or self care 09/30/2024 5:44 PM CDT - 09/30/2024 8:58 PM CDT Emergency [facility] Emergency Department [address] [place] [address] Radha Casas DO Abdominal pain [...] drink = 0.6 oz pur e alcohol) [facility] Utilities Answer Date Recorded In [...] often do you attend chur ch or baptist services? Never 08/11/2024 Do you belong to any clubs o r organizations such as synagogue groups, unions, fraternal or athletic groups, or [...] place to sleep or slept in a [place] (including now)? No 09/21/2023 PHQ-9 Answer Date [...] any time in the past 12 m [facility], were you homeless or living in a [place] facility (including now)? No 08/11/2024 Personal Safety Answer Date Recorded Have you ever been in or are you currently in a harmful physical or emotional relationship or is someone making you feel afraid or unsafe? Denies 11/25/2024 Sex and Gender Information Value Date Recorded Sex Assigned at Not on file Legal Sex Male 3:38 AM ENGINE HOSTLER Gender Identity Not on file Sexual Orientation [...] 11/25/2024 10:55 PM CDT Plan of Treatment Health Maintenance Due Date Last Done Comments Hepatitis C Screening 1981 Hepatitis B Screening 1999 Pneumococcal vaccine <65 (1 of 2 - PCV) 2000 Covid-19 Vaccine ( season) 2024 10/29/2021, 11/02/2020, 10/05/2020 Regular Well Visit/Exam 18-64 09/24/2024 09/25/2023, 09/17/2022, 02/29/2020 Influenza Vaccine (#1) 2025 , 03/20/2023, 02/08/2022, Additional history exists Depression Screening 08/23/2025 08/23/2024, 03/25/2024, 03/25/2024, Additional history exists DTaP/Tdap/Td Vaccine (2 - Td or Tdap) 10/30/2031 10/29/2021 HPV Vaccines Aged Out No longer eligi ble based on patient's age to complete this topic Varicella Vaccines Discontinued Medical Devices Explanted Type Area Accounting Analyst Device Identifier Shelf Expiration Date Model / Serial / Lot [employer] 6572 Connell Flexi-Stent 7fr 5cm Small Pigtail Flexible .035in Stent - [id number] Implanted:Qty: 1 on 09/18/2018 by Vimal Woodruff MD at [facility] Explanted:Qty: 1 on 09/20/2018 at [facility] Stent N/A: Pancreas [employer] 06/10/2023 [id number] / / [id number] U-Subs Delimed Gina [id number] Mangum Viabil 10mm 8.5fr 6cm 200cm Fully Covered Self Expand Pull - [id number] - [id number] Implanted:Qty: 1 on 09/18/2018 by Vimal Woodruff MD at [facility] Explanted:Qty: 1 on 09/20/2018 at [facility] Stent N/A: Bile Duct Conmed Gina 06/29/2021 [id number] / [id number] / [employer] Connell Flexi-Stent 7fr 9cm Small Pigtail Flexible .035in Stent 6575 - [id number] Implanted:Qty: 1 on 02/07/2022 by Vimal Woodruff MD at [facility] Explanted:Qty: 1 on 02/10/2022 by Vimal Woodruff MD at [facility] Stent N/A: Pancreas [employer] 09/07/2026 [id number] / / [id number] [employer] Gina Wallflex 10mm X 60mm Fully Covered Biliary [id number] - [id number] Implanted:Qty: 1 on 02/07/2022 by Vimal Woodruff MD at [facility] Explanted:Qty: 1 on 02/10/2022 by Vimal Woodruff MD at [facility] Stent N/A: Bile Duct [employer] Gina 11/04/2023 [id number] / / [id number] [employer] Connell Flexi-Stent 7fr 9cm Small Pigtail Flexible .035in Stent 6575 - [id number] Implanted:Qty: 1 on 09/21/2023 by Vimal Woodruff MD at [facility] Explanted:Qty: 1 on 09/23/2023 by Vimal Woodruff MD at [facility] Stent N/A: Pancreas [employer] 03/11/2028 [id number] / / [id number] Description:Not present at eginning of case. Self migrated out [employer] Gina Wallflex 10mm X 60mm Fully Covered Biliary [id number] - [id number] Implanted:Qty: 1 on 09/21/2023 by Vimal Woodruff MD at [facility] Explanted:Qty: 1 on 09/23/2023 by Vimal Woodruff MD at [facility] Stent N/A: Bile Duct [employer] Gina 08/02/2025 [id number] / / [id number] Procedures Procedure Name Priority Date/Time Associated Diagnosis [...] clear. Heart size normal. No effusion. LIVER/BILIARY: Zkqu-iz-bixjquwy steatosis. Unchanged pneumobilia. GALLBLADDER: Absent. SPLEEN: Normal. [...] Aryan Jovel M.D. AR: GIOVANNA Report ID: [id number] Reading Location: [id number] Procedure Note Aryan Jovel MD - 11/26/2024 [...] clear. Heart size normal. No effusion. LIVER/BILIARY: Pked-hl-odjnhdci steatosis. Unchanged pneumobilia. GALLBLADDER: Absent. SPLEEN: Normal. [...] Aryan Jovel M.D. AR: GIOVANNA Report ID: [id number] [place] Location: [place] [address] us Blue Warren MD IMG CT PROCEDURES F inal Result * Troponin T high-sensitivity 2-hour (11/26/2024 1:13 AM CDT) Trop T hs 8 <=22 ng/L Comment: Interpretive Data For further hscTnT resources including the diagnostic algorithm and an aid in interpretation, copy and paste this link: https://nrl.testcatalog.org/show/hsTrop Current Interpretive Data last revised 2020. Testing performed by: [address] [address] Trop T hs delta -3 ng/L NEEL SMITH Comment:Testing performed by : [address] [address] Trop T hs interp Insignificant NEEL SMITH Comment:Testing performed by : [address] [address] Blood 11/26/2024 1:13 AM CDT 11/26/2024 1:25 AM CDT us Blue Warren MD LAB BLOOD ORDERABLE S Final Result NEEL [address] [facility] [place] [address] * Urinalysis reflex to microscopic and culture Urine (11/25/2024 11:13 PM CDT) Color, ur Yellow Yellow Comment:Testing performed by : [address] [address] Clarity, ur Clear Clear NEEL SMITH Comment:Testing performed by : [address] [address] Specific gravity, ur 1.020 1.003 - 1.030 NEEL SMITH Comment:Testing performed by : [facility], [address] [place] [address], [place]., [address] pH, urine 6.0 NEEL Comment: Interpretive Data U rine pH is affected by diet, medications, systemic acid-base disturbances, and renal tubular function. pH may affect urinary stone formation. For example, urine pH below 6.0 may help reduce the tendency for calcium phosphate stones and pH greater than 6.0 may reduce the tendency for uric acid stone formation. Source: [facility]ention Current Interpretive Data was last revised on 2017 Testing performed by: [facility], [address] [place] [address], [place]., [address] Protein, ur ql Negative Negative NEEL Comment:Testing performed by : [address] [address] Glucose, ur ql Negative Negative NEEL Comment:Testing performed by : [address], [place]., [address] Ketones, ur Negative Negative NEEL Comment:Testing performed by : [address], [place]., [address] Bilirubin, ur Negative Negative NEEL Comment:Testing performed by : [address], [place]., [address] Blood, ur Negative Negative NEEL Comment:Testing performed by : [address], [place]., [address] Urobilinogen, ur <2.0 <2.0 mg/dL NEEL Comment:Testing performed by : [address] [address] Nitrite, ur Negative Negative NEEL Comment:Testing performed by : [address], [place]., [address] Leukocyte esterase, ur Negative Negative NEEL Comment:Testing performed by : [address], [place]., [address] UA reflex comment Reflex conditions for microscopic UA and culture not met. NEEL Comment:Testing performed by : [address], [place]., [address] Urine 11/25/2024 11:1 3 PM CDT 11/25/2024 11:24 PM CDT us Blue Warren MD LAB MICROBIOLOGY - GENERAL ORDERABLES Final Result Performing Organization Address City/[facility] Co de Phone Number NEEL [facility] [place] [address] * Troponin T high-sensitivity series (baseline, 2hr, 4hr, 6hr) (11/25/2024 11:06 PM CDT) Trop T hs 11 <=22 ng/L Comment: Interpretive Data For further hscTnT resources including the diagnostic algorithm and an aid in interpretation, copy and paste this link: https://nrl.testcatalog.org/show/hsTrop Current Interpretive Data last revised 2020. Testing performed by: [facility], [address] [place] [address]., [address] Blood 11/25/2024 11:0 6 PM CDT 11/25/2024 11:24 PM CDT us Blue Warren MD LAB BLOOD ORDERABLE S Final Result Performing Organization Address [facility] Co de Phone Number NEEL [address] [place] [address] * eGFR (11/25/2024 11:06 PM CDT) eGFR [...] was last reviewed 2021. Testing performed by: [address] [address] Blood 11/25/2024 11:0 6 PM CDT 11/25/2024 11:24 PM CDT us Blue Warren MD LAB BLOOD ORDERABLE S Final Result [place] [id number] [facility] [place] [address] * (ABNORMAL) Differential, auto (11/25/2024 11:06 PM CDT) Neutrophil abs 13.59(H) 1.50 - 6.50 K/cumm Comment:Testing performed by : [address] [address] Imm gran abs 0.11(H) 0.00 - 0.10 K/cumm NEEL Comment:Testing performed by : [address] [address] Lymphocyte abs 1.24 0.80 - 3.30 K/cumm NEEL Comment:Testing performed by : [address] [address] Monocyte abs 0.90(H) 0.20 - 0.80 K/cumm NEEL Comment:Testing performed by : [address] [address] Eosinophil abs 0.02 0.00 - 0.50 K/cumm NEEL Comment:Testing performed by : [address] [address] Basophil abs 0.05 0.00 - 0.10 K/cumm NEEL Comment:Testing performed by : [address] [address] Neutrophil pct 85.4 % NEEL Comment: Interpretive Data Percent cell count reference ranges are not reported, since discordance with absolute values may lead to misinterpretation of CBC data. Current Interpretive Data was last revised on 2017. Testing performed by: [address] [address] Imm gran pct 0.7 % [facility] Comment: Interpretive Data Percent cell count reference ranges are not reported, since discordance with absolute values may lead to misinterpretation of CBC data. Current Interpretive Data was last revised on 2017. Testing performed by: [address] [address] Lymphocyte pct 7.8 % [facility] Comment: Interpretive Data Percent cell count reference ranges are not reported, since discordance with absolute values may lead to misinterpretation of CBC data. Current Interpretive Data was last revised on 2017. Testing performed by: [address] [address] Monocyte pct 5.7 % [facility] Comment: Interpretive Data Percent cell count reference ranges are not reported, since discordance with absolute values may lead to misinterpretation of CBC data. Current Interpretive Data was last revised on 2017. Testing performed by: [address] [address] Eosinophil pct 0.1 % [facility] Comment: Interpretive Data Percent cell count reference ranges are not reported, since discordance with absolute values may lead to misinterpretation of CBC data. Current Interpretive Data was last revised on 2017. Testing performed by: [address] [address] Basophil pct 0.3 % [facility] Comment: Interpretive Data Percent cell count reference ranges are not reported, since discordance with absolute values may lead to misinterpretation of CBC data. Current Interpretive Data was last revised on 2017. Testing performed by: [address] [address] Blood 11/25/2024 11:0 6 PM CDT 11/25/2024 11:24 PM CDT us Blue Warren MD LAB BLOOD ORDERABLE S Final Result NEEL [address] [facility] [place] [address] * (ABNORMAL) CBC with auto differential (11/25/2024 11:06 PM CDT) WBC 15.91(H) 3.80 - 9.90 K/cumm Comment:Testing performed by : [address] [address] Hgb 15.1 13.0 - 17.5 g/dL NEEL Comment:Testing performed by : [address] [address] Hct 44.2 38.9 - 50.3 % NEEL Comment:Testing performed by : [address] [address] Plt 300 150 - 400 K/cumm NEEL Comment:Testing performed by : [address] [address] MPV 9.7 9.1 - 12.3 fL NEEL Comment:Testing performed by : [address] [address] RBC 5.26 4.30 - 5.80 M/cumm NEEL Comment:Testing performed by : [address] [address] MCV 84.0 81.3 - 96.4 fL NEEL Comment:Testing performed by : [address] [address] MCH 28.7 27.1 - 33.3 pg NEEL Comment:Testing performed by : [address] [address] MCHC 34.2 32.3 - 35.7 g/dL NEEL Comment:Testing performed by : [address] [address] RDW CV 15.2(H) 11.1 - 14.9 % NEEL Comment:Testing performed by : [address] [address] RDW SD 46.3 35.7 - 48.1 fL NEEL Comment:Testing performed by : [address] [address] NRBC abs 0.00 0.00 - 0.01 K/cumm NEEL SMITH Comment:Testing performed by : [address] [address] Blood Venous blood specimen / Unknown 11/25/2024 11:06 PM CDT 11/25/2024 11:24 PM CDT Blue Warren MD LAB BLOOD ORDERABLE S Final Result Performing Organization Address City/[facility]/ZIP Co de Phone Number [address] [address] * Lipase (11/25/2024 11:06 PM CDT) Pathologist [facility] Lipase 24 10 - 99 Units/L Comment:Testing performed by : [address] [address] Blood Venous blood specimen / Unknown 11/25/2024 11:06 PM CDT 11/25/2024 11:24 PM CDT Blue Warren MD LAB BLOOD ORDERABLE S Final Result Performing Organization Address City/[facility] Co de Phone Number [address] [address] * (ABNORMAL) Comprehensive metabolic panel (11/25/2024 11:06 PM CDT) Sodium 140 135 - 145 mmol/L Comment:Testing performed by : [address] [address] Potassium, pl 4.1 3.3 - 4.9 mmol/L NEEL SMITH Comment:Testing performed by : [address] [address] Chloride 102 97 - 110 mmol/L NEEL SMITH Comment:Testing performed by : [address] [address] CO2 24 22 - 32 mmol/L NEEL SMITH Comment:Testing performed by : [address] [address] Anion gap 14 2 - 15 mmol/L NEEL Comment:Testing performed by : [address] [address] BUN 10 6 - 25 mg/dL NEEL Comment:Testing performed by : [address], [place]., [address] Creatinine 1.01 0.80 - 1.30 mg/dL NEEL Comment:Testing performed by : [address] [address] Glucose 115 70 - 199 mg/dL NEEL [...] was last revised 2022. Testing performed by: [address] [address] Calcium 10.5(H) 8.5 - 10.3 mg/dL NEEL Comment:Testing performed by : [address] [address] Bilirubin, total 0.4 0.1 - 1.2 mg/dL NEEL Comment:Testing performed by : [address] [address] Protein, pl 7.4 6.5 - 8.5 g/dL NEEL Comment:Testing performed by : [address] [address] Albumin 4.5 3.5 - 5.0 g/dL NEEL Comment:Testing performed by : [address] [address] Alk phos 89 40 - 130 Units/L NEEL Comment:Testing performed by : [address] [address] ALT 19 7 - 55 Units/L NEEL Comment:Testing performed by : [address] [address] AST 21 10 - 50 Units/L NEEL Comment:Testing performed by : [address] [address] Blood 11/25/2024 11:0 6 PM CDT 11/25/2024 11:24 PM CDT us Blue Warren MD LAB BLOOD ORDERABLE S Final Result Performing Organization Address City/[facility]/ZIP Co de Phone Number [facility] [address] [facility] [place] [address] * ECG 12 lead (11/25/2024 11:02 PM CDT) Pathologist [facility] Ventricular Rate EKG/Min 74 BPM [facility] Atrial Rate 74 BPM [facility] PA-Interval (MSEC) 80 ms [facility] QRS-Interval (MSEC) 96 ms [facility] QT-Interval (MSEC) 354 ms [facility] QTc 392 ms [facility] P [place] -18 degrees [facility] R [place] 32 degrees [facility] T [place] 56 degrees [facility] Diagnosis Sinus rhythm with sinus arrhythmia with short PA Otherwise normal ECG When compared with ECG of 13-OCT-2024 03:54, No significant change was found Confirmed by DARIEL CARLOS M.D. ([id number]) on 11/26/2024 10:02:21 PM [facility] 11/25/2024 11:0 2 PM CDT 11/26/2024 10:02 PM CDT us Blue Warren MD ECG ORDERABLES Fin al Result Performing Organization Address City/[facility]/ZIP Co de Phone Number [facility] * CT Abdomen Pelvis W Contrast (10/18/2024 [...] Electronically signed by: Fredy Carr MD, PHD Oswaldo Burns MD IMG CT PROCEDURES Final Re sult * (ABNORMAL) Urinalysis reflex to microscopic and culture Urine (10/18/2024 3:34 PM CDT) Color, ur Yellow Yellow Clarity, ur Turbid(A) Clear [facility] Specific gravity, ur 1.014 1.003 - 1.030 [facility] pH, urine 7.5 [facility] Comment: Interpretive Data U rine pH is affected by diet, medications, systemic acid-base disturbances, and renal tubular function. pH may affect urinary stone formation. For example, urine pH below 6.0 may help reduce the tendency for calcium phosphate stones and pH greater than 6.0 may reduce the tendency for uric acid stone formation. Source: [facility] Current Interpretive Data was last revised on 2017 Protein, ur ql Trace Negative [facility] Glucose, ur ql Negative Negative [facility] Ketones, ur 1+(A) Negative [facility] Bilirubin, ur Negative Negative [facility] Blood, ur Negative Negative [facility] Urobilinogen, ur <2.0 <2.0 mg/dL [facility] Nitrite, ur Negative Negative [facility] Leukocyte esterase, ur Negative Negative [facility] UA reflex comment Reflex conditions for microscopic UA and culture not met. [facility] Urine 10/18/2024 3:34 PM CDT 10/18/2024 3:34 PM CDT Oswaldo Burns MD LAB MICROBIOLOGY - GENERAL ORDERABLES Final Result [facility] [address] Department [place] [address] * eGFR (10/18/2024 12:48 PM CDT) [facility] eGFR >90 >=60 mL/min/1. 73 m2 [...] MD LAB BLOOD ORDERABLES Final R esult [facility] [address] Department [place] [address] * (ABNORMAL) Differential, auto (10/18/2024 12:48 PM CDT) [facility] Neutrophil abs 12.53(H) 1.50 - 6.50 K/cumm Imm gran abs 0.08 0.00 - 0.10 K/cumm [facility] Lymphocyte abs 1.17 0.80 - 3.30 K/cumm [facility] Monocyte abs 1.45(H) 0.20 - 0.80 K/cumm [facility] Eosinophil abs 0.07 0.00 - 0.50 K/cumm [facility] Basophil abs 0.07 0.00 - 0.10 K/cumm [facility] Neutrophil pct 81.5 % [facility] Comment: Interpretive Data Percent cell count reference ranges are not reported, since discordance with absolute values may lead to misinterpretation of CBC data. Current Interpretive Data was last revised on 2017. Imm gran pct 0.5 % [facility] Comment: Interpretive Data Percent cell count reference ranges are not reported, since discordance with absolute values may lead to misinterpretation of CBC data. Current Interpretive Data was last revised on 2017. Lymphocyte pct 7.6 % [facility] Comment: Interpretive Data Percent cell count reference ranges are not reported, since discordance with absolute values may lead to misinterpretation of CBC data. Current Interpretive Data was last revised on 2017. Monocyte pct 9.4 % [facility] Comment: Interpretive Data Percent cell count reference ranges are not reported, since discordance with absolute values may lead to misinterpretation of CBC data. Current Interpretive Data was last revised on 2017. Eosinophil pct 0.5 % [facility] Comment: Interpretive Data Percent cell count reference ranges are not reported, since discordance with absolute values may lead to misinterpretation of CBC data. Current Interpretive Data was last revised on 2017. Basophil pct 0.5 % [facility] Comment: Interpretive Data Percent cell count reference ranges are not reported, since discordance with absolute values may lead to misinterpretation of CBC data. Current Interpretive Data was last revised on 2017. Blood 10/18/2024 12:4 8 PM CDT 10/18/2024 1:27 PM CDT Oswaldo Burns MD LAB BLOOD ORDERABLES Final Result [facility] [address] Department [place] [address] * (ABNORMAL) CBC with auto differential (10/18/2024 12:48 PM CDT) WBC 15.37(H) 3.80 - 9.90 K/cumm Hgb 14.6 13.0 - 17.5 g/dL [facility] Hct 43.2 38.9 - 50.3 % [facility] Plt 353 150 - 400 K/cumm [facility] MPV 10.0 9.1 - 12.3 fL [facility] RBC 5.10 4.30 - 5.80 M/cumm [facility] MCV 84.7 81.3 - 96.4 fL [facility] MCH 28.6 27.1 - 33.3 pg [facility] MCHC 33.8 32.3 - 35.7 g/dL [facility] RDW CV 15.8(H) 11.1 - 14.9 % [facility] RDW SD 48.2(H) 35.7 - 48.1 fL [facility] NRBC abs 0.00 0.00 - 0.01 K/cumm [facility] Blood Venous blood specimen / Unknown 10/18/2024 12:48 PM CDT 10/18/2024 1:27 PM CDT Oswaldo Burns MD LAB BLOOD ORDERABLES Final Result Performing Organization Address [facility] Co de Phone Number [facility] [address] [place] [address] * Lipase (10/18/2024 12:48 PM CDT) [facility] Lipase 36 10 - 99 Units/L Blood Venous blood specimen / Unknown 10/18/2024 12:48 PM CDT 10/18/2024 1:27 PM CDT Oswaldo Burns MD LAB BLOOD ORDERABLES Final Result Performing Organization Address [facility] de Phone Number [facility] [address] [place] [address] * (ABNORMAL) Comprehensive metabolic panel (10/18/2024 12:48 PM CDT) [facility] Sodium 141 135 - 145 mmol/L Potassium, pl 3.8 3.3 - 4.9 mmol/L [facility] Chloride 103 97 - 110 mmol/L [facility] CO2 22 22 - 32 mmol/L [facility] Anion gap 16(H) 2 - 15 mmol/L [facility] BUN 9 6 - 25 mg/dL [facility] Creatinine 1.01 0.80 - 1.30 mg/dL [facility] Glucose 132 70 - 199 mg/dL [facility] Comment: Interpretive Data Fasting glucose >/= 126 [...] 2022. Calcium 9.8 8.5 - 10.3 mg/dL [facility] Bilirubin, total 0.7 0.1 - 1.2 mg/dL [facility] Protein, pl 7.3 6.5 - 8.5 g/dL [facility] Albumin 4.4 3.5 - 5.0 g/dL [facility] Alk phos 83 40 - 130 Units/L [facility] ALT 22 7 - 55 Units/L [facility] AST 28 10 - 50 Units/L [facility] Blood 10/18/2024 12:4 8 PM CDT 10/18/2024 1:27 PM CDT Oswaldo Burns MD LAB BLOOD ORDERABLES Final Result [facility] [address] Department [place] [address] * Lipase - Add on lab test (10/14/2024 4:29 AM CDT) Acceptable Yes Blood 10/14/2024 4:29 AM CDT 10/14/2024 4:29 AM CDT Narrative [facility] - 10/14/2024 4:30 AM CDT Name of Test->Lipase us Yusef Bear MD LAB BLOOD ORDERABLES Final Result [facility] [address] Department [place] [address] * CT Abdomen Pelvis W Contrast (10/14/2024 1:38 AM CDT) Anatomical Region Laterality Modality Body N/A Computed Tomogra phy 10/14/2024 1:29 AM CDT Impressions 10/14/2024 9:11 AM CDT No acute abnormality in the abdomen or pelvis. No pancreatitis. For the purposes of quality compliance coordinator, this study was initially interpreted by teleradiology. [...] No pancreatitis. For the purposes of quality compliance coordinator, this study was initially interpreted by teleradiology. [...] ur Yellow Yellow Clarity, ur Clear Clear [facility] Specific gravity, ur 1.010 1.003 - 1.030 [facility] pH, urine 6.5 [facility] Comment: Interpretive Data U rine pH is affected by diet, medications, systemic acid-base disturbances, and renal tubular function. pH may affect urinary stone formation. For example, urine pH below 6.0 may help reduce the tendency for calcium phosphate stones and pH greater than 6.0 may reduce the tendency for uric acid stone formation. Source: [facility] Current Interpretive Data was last revised on 2017 Protein, ur ql Negative Negative [facility] Glucose, ur ql Negative Negative [facility] Ketones, ur 1+(A) Negative [facility] Bilirubin, ur Negative Negative [facility] Blood, ur Negative Negative [facility] Urobilinogen, ur <2.0 <2.0 mg/dL [facility] Nitrite, ur Negative Negative [facility] Leukocyte esterase, ur Negative Negative [facility] UA reflex comment Reflex conditions for microscopic UA and culture not met. [facility] Urine 10/13/2024 10:1 0 PM CDT 10/13/2024 10:11 PM CDT us Abdiel Donaldson MD LAB MICROBIOLOGY - GENERAL O RDERABLES Final Result [facility] [address] Department [place] [address] * eGFR (10/13/2024 10:06 PM CDT) eGFR [...] MD LAB BLOOD ORDERABLES Final R esult [facility] [address] Department [place] [address] * (ABNORMAL) Differential, auto (10/13/2024 10:06 PM CDT) Neutrophil abs 11.31(H) 1.50 - 6.50 K/cumm Imm gran abs 0.06 0.00 - 0.10 K/cumm [facility] Lymphocyte abs 1.47 0.80 - 3.30 K/cumm [facility] Monocyte abs 1.09(H) 0.20 - 0.80 K/cumm [facility] Eosinophil abs 0.07 0.00 - 0.50 K/cumm [facility] Basophil abs 0.04 0.00 - 0.10 K/cumm [facility] Neutrophil pct 80.5 % [facility] Comment: Interpretive Data Percent cell count reference ranges are not reported, since discordance with absolute values may lead to misinterpretation of CBC data. Current Interpretive Data was last revised on 2017. Imm gran pct 0.4 % [facility] Comment: Interpretive Data Percent cell count reference ranges are not reported, since discordance with absolute values may lead to misinterpretation of CBC data. Current Interpretive Data was last revised on 2017. Lymphocyte pct 10.5 % [facility] Comment: Interpretive Data Percent cell count reference ranges are not reported, since discordance with absolute values may lead to misinterpretation of CBC data. Current Interpretive Data was last revised on 2017. Monocyte pct 7.8 % [facility] Comment: Interpretive Data Percent cell count reference ranges are not reported, since discordance with absolute values may lead to misinterpretation of CBC data. Current Interpretive Data was last revised on 2017. Eosinophil pct 0.5 % [facility] Comment: Interpretive Data Percent cell count reference ranges are not reported, since discordance with absolute values may lead to misinterpretation of CBC data. Current Interpretive Data was last revised on 2017. Basophil pct 0.3 % [facility] Comment: Interpretive Data Percent cell count reference ranges are not reported, since discordance with absolute values may lead to misinterpretation of CBC data. Current Interpretive Data was last revised on 2017. Blood 10/13/2024 10:0 6 PM CDT 10/13/2024 10:43 PM CDT Abdiel Donaldson MD LAB BLOOD ORDERABLES Final R esult Performing Organization Address [facility]/ZIP Co de Phone Number [facility] [address] [place] [address] * (ABNORMAL) CBC with auto differential (10/13/2024 10:06 PM CDT) WBC 14.04(H) 3.80 - 9.90 K/cumm Hgb 14.1 13.0 - 17.5 g/dL [facility] Hct 43.6 38.9 - 50.3 % [facility] Plt 312 150 - 400 K/cumm [facility] MPV 10.3 9.1 - 12.3 fL [facility] RBC 5.01 4.30 - 5.80 M/cumm [facility] MCV 87.0 81.3 - 96.4 fL [facility] MCH 28.1 27.1 - 33.3 pg [facility] MCHC 32.3 32.3 - 35.7 g/dL [facility] RDW CV 15.6(H) 11.1 - 14.9 % [facility] RDW SD 49.1(H) 35.7 - 48.1 fL [facility] NRBC abs 0.00 0.00 - 0.01 K/cumm [facility] Blood Venous blood specimen / Unknown 10/13/2024 10:06 PM CDT 10/13/2024 10:43 PM CDT Abdiel Donaldson MD LAB BLOOD ORDERABLES Final R esult Performing Organization Address City/[facility]/ZIP Co de Phone Number [facility] [address] Department [place] [address] * (ABNORMAL) Lipase (10/13/2024 10:06 PM CDT) Pathologist [facility] Lipase 119(H) 10 - 99 Units/L Blood 10/13/2024 10:0 6 PM CDT 10/13/2024 10:43 PM CDT Abdiel Donaldson MD LAB BLOOD ORDERABLES Final R esult [facility] [address] Department [place] [address] * (ABNORMAL) Comprehensive metabolic panel (10/13/2024 10:06 PM CDT) Pathologist [facility] Sodium 144 135 - 145 mmol/L Potassium, pl 3.7 3.3 - 4.9 mmol/L [facility] Chloride 104 97 - 110 mmol/L [facility] CO2 22 22 - 32 mmol/L [facility] Anion gap 18(H) 2 - 15 mmol/L [facility] BUN 7 6 - 25 mg/dL [facility] Creatinine 0.91 0.80 - 1.30 mg/dL [facility] Glucose 95 70 - 199 mg/dL [facility] Comment: Interpretive Data Fasting glucose >/= 126 [...] 2022. Calcium 9.3 8.5 - 10.3 mg/dL [facility] Bilirubin, total 0.4 0.1 - 1.2 mg/dL [facility] Protein, pl 7.0 6.5 - 8.5 g/dL [facility] Albumin 4.5 3.5 - 5.0 g/dL [facility] Alk phos 82 40 - 130 Units/L [facility] ALT 16 7 - 55 Units/L [facility] AST 19 10 - 50 Units/L [facility] Blood Venous blood specimen / Unknown 10/13/2024 10:06 PM CDT 10/13/2024 10:43 PM CDT Abdiel Donaldson MD LAB BLOOD ORDERABLES Final R esult Performing Organization Address City/[facility] Co de Phone Number [facility] [address] Department [place] [address] * ECG 12 lead (10/13/2024 9:51 PM CDT) 10/13/2024 9:51 PM CDT Narrative [facility] - 10/14/2024 9:31 AM CDT Vent Rate: 68 bpm RR Interval: 880 msec PA Interval: 129 msec QRS Duration: 113 msec QT Interval: 357 msec QTC Interval: 374 msec P-R-T [place]: 26 - 53 - 61 degrees IMPRESSION: SINUS RHYTHM WITH A BORDERLINE SHORT PA INTERVAL WITH MARKED SINUS ARRHYTHMIA INCOMPLETE RIGHT BUNDLE-BRANCH BLOCK BORDERLINE ECG Electronically Signed By: Calvin Sanabria MD mobap Jose Francisco Jessica MD ECG ORDERABLES Final Resu lt Performing Organization Address [facility] de Phone Number [facility] [employer] [facility] * (ABNORMAL) Differential, auto (10/13/2024 7:40 AM CDT) Pathologist [facility] Neutrophil abs 12.72(H) 1.50 - 6.50 K/cumm Imm gran abs 0.06 0.00 - 0.10 K/cumm [facility] Lymphocyte abs 0.98 0.80 - 3.30 K/cumm [facility] Monocyte abs 0.59 0.20 - 0.80 K/cumm [facility] Eosinophil abs 0.01 0.00 - 0.50 K/cumm [facility] Basophil abs 0.04 0.00 - 0.10 K/cumm [facility] Neutrophil pct 88.3 % [facility] Comment: Interpretive Data Percent cell count reference ranges are not reported, since discordance with absolute values may lead to misinterpretation of CBC data. Current Interpretive Data was last revised on 2017. Imm gran pct 0.4 % [facility] Comment: Interpretive Data Percent cell count reference ranges are not reported, since discordance with absolute values may lead to misinterpretation of CBC data. Current Interpretive Data was last revised on 2017. Lymphocyte pct 6.8 % [facility] Comment: Interpretive Data Percent cell count reference ranges are not reported, since discordance with absolute values may lead to misinterpretation of CBC data. Current Interpretive Data was last revised on 2017. Monocyte pct 4.1 % [facility] Comment: Interpretive Data Percent cell count reference ranges are not reported, since discordance with absolute values may lead to misinterpretation of CBC data. Current Interpretive Data was last revised on 2017. Eosinophil pct 0.1 % [facility] Comment: Interpretive Data Percent cell count reference ranges are not reported, since discordance with absolute values may lead to misinterpretation of CBC data. Current Interpretive Data was last revised on 2017. Basophil pct 0.3 % [facility] Comment: Interpretive Data Percent cell count reference ranges are not reported, since discordance with absolute values may lead to misinterpretation of CBC data. Current Interpretive Data was last revised on 2017. Blood 10/13/2024 7:40 AM CDT 10/13/2024 7:42 AM CDT us Rodney Mejia MD LAB BLOOD ORDERABLES Fi nal Result [facility] [address] [facility] Department [place] [address] * (ABNORMAL) CBC with auto differential (10/13/2024 7:40 AM CDT) WBC 14.40(H) 3.80 - 9.90 K/cumm Hgb 13.1 13.0 - 17.5 g/dL [facility] Hct 40.8 38.9 - 50.3 % [facility] Plt 242 150 - 400 K/cumm [facility] MPV 9.9 9.1 - 12.3 fL [facility] RBC 4.61 4.30 - 5.80 M/cumm [facility] MCV 88.5 81.3 - 96.4 fL [facility] MCH 28.4 27.1 - 33.3 pg [facility] MCHC 32.1(L) 32.3 - 35.7 g/dL [facility] RDW CV 15.4(H) 11.1 - 14.9 % [facility] RDW SD 49.5(H) 35.7 - 48.1 fL [facility] NRBC abs 0.00 0.00 - 0.01 K/cumm [facility] Blood 10/13/2024 7:40 AM CDT 10/13/2024 7:42 AM CDT Narrative [facility] - 10/13/2024 7:45 AM CDT For after fluids Rodney Mejia MD LAB BLOOD ORDERABLES Fi nal Result Performing Organization Address [facility] Co de Phone Number [address] [place] [address] * Sepsis Lactate w/ Reflex (10/13/2024 4:57 AM CDT) [facility] Sepsis Lactate 1.1 0.7 - 2.0 mmol/L Blood 10/13/2024 4:57 AM CDT 10/13/2024 4:59 AM CDT Rodney Mejia MD LAB BLOOD ORDERABLES Fi nal Result Performing Organization Address [facility] de Phone Number [address] [place] [address] * (ABNORMAL) Drugs of Abuse Screen, Urine with Reflex Confirmation (10/13/2024 4:13 AM CDT) [facility] Amphetamine, ur Not Detected CutOff 500ng/mL Comment: Interpretive Data - Amphetamines: Samples containing greater than 500 ng/mL d-methamphetamine or other cross-reacting amphetamine compounds are reported as positive. Amphetamine immunoassays are subject to significant false positive rates due to cross-reactivity of non-amphetamine drugs. Confirmatory testing required for definitive results. Current Interpretive Data was last reviewed 2022. Barbiturates, ur Not Detected CutOff 200ng/mL [facility] Comment: Interpretive Data - Barbiturates: Samples containing greater than 200 ng/mL secobarbital or other cross-reacting barbiturate compounds are reported as positive. False positive and false negative results are possible. Confirmatory testing required for definitive results. Current Interpretive Data was last reviewed 2022. Benzodiazepines, ur Not Detected CutOff 100ng/mL [facility] Comment: Interpretive Data - Benzodiazepines: Samples containing greater than 100 ng/mL nordiazepam or other cross-reacting compounds are reported as positive. False positive and false negative results are possible. Confirmatory testing required for definitive results. Current Interpretive Data was last reviewed 2022. Cannabinoids, ur Screen Positive, presumptive (A) CutOff 50 ng/mL [facility] Comment: Interpretive Data - Cannabinoids: [...] Oxycodone, ur Not Detected CutOff 100ng/mL [facility] Comment: Interpretive Data - Oxycodone: Samples containing [...] last reviewed 2022. Urine Creatinine 90 mg/dL [facility] Comment: Interpretive Data Urine Creatinine: < 10 mg/dL is extremely dilute = or > 10 but < 20 mg/dL is dilute = or > 20 mg/dL is normal Current Interpretive Data was last revised on 2017. Urine 10/13/2024 4:13 AM CDT 10/13/2024 4:16 AM CDT Narrative [facility] - 10/13/2024 4:45 AM CDT Drug of Abuse screening is performed by immunoassay for medical purposes only. This is not to be used for Pain Management purposes. If Detected, confirmation testing will be performed for Amphetamines, Cocaine, Fentanyl, Methadone, Opiates, Oxycodone or Phencyclidine. Rodney Mejia MD LAB URINE ORDERABLES [facility] Result [facility] [address] [facility] Department [place] [address] * Troponin T high-sensitivity series (baseline, 2hr, [...] ORDERABLES Fi nal Result Performing Organization Address [facility] Co de Phone Number NEEL [address] [place] [address] * eGFR (10/13/2024 4:08 AM CDT) eGFR [...] ORDERABLES Fi nal Result Performing Organization Address City/[facility]/ZIP Co de Phone Number NE[facility] [address] Department [place] [address] * (ABNORMAL) Differential, auto (10/13/2024 4:08 AM CDT) Pathologist [facility] Neutrophil abs 12.87(H) 1.50 - 6.50 K/cumm Imm gran abs 0.09 0.00 - 0.10 K/cumm [facility] Lymphocyte abs 2.58 0.80 - 3.30 K/cumm [facility] Monocyte abs 1.61(H) 0.20 - 0.80 K/cumm [facility] Eosinophil abs 0.19 0.00 - 0.50 K/cumm [facility] Basophil abs 0.07 0.00 - 0.10 K/cumm [facility] Neutrophil pct 74.0 % [facility] Comment: Interpretive Data [...] revised on 2017. Lymphocyte pct 14.8 % [facility] Comment: Interpretive Data Percent cell count reference ranges are not reported, since discordance with absolute values may lead to misinterpretation of CBC data. Current Interpretive Data was last revised on 2017. Monocyte pct 9.2 % [facility] Comment: Interpretive Data [...] ORDERABLES Fi nal Result Performing Organization Address [facility] Co de Phone Number NEEL SMITH [address] [place] [phone] * (ABNORMAL) Urinalysis reflex to microscopic and culture Urine (10/13/2024 4:08 AM CDT) Color, ur Yellow Yellow Clarity, ur Cloudy(A) Clear [facility] Specific gravity, ur 1.013 1.003 - 1.030 [facility] pH, urine 7.5 [facility] Comment: Interpretive Data U rine pH is affected by diet, medications, systemic acid-base disturbances, and renal tubular function. pH may affect urinary stone formation. For example, urine pH below 6.0 may help reduce the tendency for calcium phosphate stones and pH greater than 6.0 may reduce the tendency for uric acid stone formation. Source: [facility] Current Interpretive Data was last revised on [...] for microscopic UA and culture not met. [facility] Urine 10/13/2024 4:08 AM CDT 10/13/2024 4:16 AM CDT Rodney Mejia MD LAB MICROBIOLOGY - GENE RAL ORDERABLES Final Result Performing Organization Address [facility] Co de Phone Number NE[facility] [address] [place] [address] * (ABNORMAL) CBC with auto differential (10/13/2024 4:08 AM CDT) WBC 17.41(H) 3.80 - 9.90 K/cumm Hgb 13.8 13.0 - 17.5 g/dL [facility] Hct 41.2 38.9 - 50.3 % [facility] Plt 291 150 - 400 K/cumm [facility] MPV 9.9 9.1 - 12.3 fL [facility] RBC 4.87 4.30 - 5.80 M/cumm [facility] MCV 84.6 81.3 - 96.4 fL [facility] MCH 28.3 27.1 - 33.3 pg [facility] MCHC 33.5 32.3 - 35.7 g/dL [facility] RDW CV 15.4(H) 11.1 - 14.9 % [facility] RDW SD 46.5 35.7 - 48.1 fL [facility] NRBC abs 0.00 0.00 - 0.01 K/cumm [facility] Blood Venous blood specimen / Unknown 10/13/2024 4:08 AM CDT 10/13/2024 4:16 AM CDT Rodney Mejia MD LAB BLOOD ORDERABLES Fi nal Result Performing Organization Address City/[facility] Co de Phone Number [address] [place], [place] [id number] * (ABNORMAL) Lipase (10/13/2024 4:08 AM CDT) Pathologist [facility] Lipase 270(H) 10 - 99 Units/L Blood Venous blood specimen / Unknown 10/13/2024 4:08 AM CDT 10/13/2024 4:16 AM CDT Rodney Mejia MD LAB BLOOD ORDERABLES Fi nal Result Performing Organization Address City/[facility] Co de Phone Number [address] [place] [address] * Comprehensive metabolic panel (10/13/2024 4:08 AM CDT) [facility] [place] Sodium 141 135 - 145 mmol/L Potassium, pl 3.8 3.3 - 4.9 mmol/L [facility] Chloride 104 97 - 110 mmol/L [facility] CO2 22 22 - 32 mmol/L [facility] Anion gap 15 2 - 15 mmol/L [facility] BUN 12 6 - 25 mg/dL [facility] Creatinine 1.13 0.80 - 1.30 mg/dL [facility] Glucose 110 70 - 199 mg/dL [facility] [...] 2022. Calcium 9.2 8.5 - 10.3 mg/dL [facility] Bilirubin, total 0.3 0.1 - 1.2 mg/dL [facility] Protein, pl 6.8 6.5 - 8.5 g/dL [facility] Albumin 4.2 3.5 - 5.0 g/dL [facility] Alk phos 77 40 - 130 Units/L [facility] ALT 15 7 - 55 Units/L [facility] AST 19 10 - 50 Units/L [facility] Blood 10/13/2024 4:08 AM CDT 10/13/2024 4:16 AM CDT us Rodney Mejia MD LAB BLOOD ORDERABLES nal Result [facility] [address] [facility] [place] [address] * ECG 12 lead (10/13/2024 3:54 AM CDT) Ventricular Rate EKG/Min 66 BPM [facility] Atrial Rate 66 BPM [facility] PA-Interval (MSEC) 86 ms [facility] QRS-Interval (MSEC) 100 ms [facility] QT-Interval (MSEC) 376 ms [facility] QTc 394 ms [facility] P [place] 3 degrees [facility] R [place] 45 degrees [facility] T [place] 52 degrees [facility] Diagnosis Sinus rhythm with short PA Incomplete right bundle branch block Confirmed by HOLLAND MELGAR M.D. ([id number]) on 10/13/2024 9:29:09 AM [facility] 10/13/2024 3:54 AM CDT 10/13/2024 9:29 AM CDT us Rodney Mejia MD ECG ORDERABLES Final R esult [facility] * eGFR (10/08/2024 7:25 PM [...] reviewed 2021. Testing performed by: [facility], [address] [place] [address]., [address] Blood 10/08/2024 7:25 PM CDT 10/08/2024 7:29 PM CDT us Lilliana LAWTON LAB BLOOD ORDERABLES Final Result NEEL [address] [facility] [place] [address] * (ABNORMAL) Differential, auto (10/08/2024 7:25 PM CDT) Neutrophil abs 5.02 1.50 - 6.50 K/cumm Comment:Testing performed by : [address] [address] Imm gran abs 0.04 0.00 - 0.10 K/cumm NEEL Comment:Testing performed by : [address] [address] Lymphocyte abs 3.13 0.80 - 3.30 K/cumm [facility] Comment:Testing performed by : [address] [address] Monocyte abs 1.11(H) 0.20 - 0.80 K/cumm [facility] Comment:Testing performed by : [address] [address] Eosinophil abs 0.10 0.00 - 0.50 K/cumm [facility] Comment:Testing performed by : [address] [address] Basophil abs 0.06 0.00 - 0.10 K/cumm [facility] Comment:Testing performed by : [address] [address] Neutrophil pct 53.1 % [facility] Comment: Interpretive Data Percent cell count reference ranges are not reported, since discordance with absolute values may lead to misinterpretation of CBC data. Current Interpretive Data was last revised on 2017. Testing performed by: [address] [address] Imm gran pct 0.4 % [facility] Comment: Interpretive Data Percent cell count reference ranges are not reported, since discordance with absolute values may lead to misinterpretation of CBC data. Current Interpretive Data was last revised on 2017. Testing performed by: [address] [address] Lymphocyte pct 33.1 % [facility] Comment: Interpretive Data Percent cell count reference ranges are not reported, since discordance with absolute values may lead to misinterpretation of CBC data. Current Interpretive Data was last revised on 2017. Testing performed by: [address] [address] Monocyte pct 11.7 % NEEL Comment: Interpretive Data Percent cell count reference ranges are not reported, since discordance with absolute values may lead to misinterpretation of CBC data. Current Interpretive Data was last revised on 2017. Testing performed by: [address] [address] Eosinophil pct 1.1 % NEEL Comment: Interpretive Data Percent cell count reference ranges are not reported, since discordance with absolute values may lead to misinterpretation of CBC data. Current Interpretive Data was last revised on 2017. Testing performed by: [address] [address] Basophil pct 0.6 % NEEL Comment: Interpretive Data Percent cell count reference ranges are not reported, since discordance with absolute values may lead to misinterpretation of CBC data. Current Interpretive Data was last revised on 2017. Testing performed by: [address] [address] Blood 10/08/2024 7:25 PM CDT 10/08/2024 7:29 PM CDT Lilliana LAWTON LAB BLOOD ORDERABLES Final Result [facility] [address] [facility] [place] [address] * (ABNORMAL) CBC with auto differential (10/08/2024 7:25 PM CDT) WBC 9.46 3.80 - 9.90 K/cumm Comment:Testing performed by : [address] [address] Hgb 15.0 13.0 - 17.5 g/dL NEEL Comment:Testing performed by : [address] [address] Hct 44.6 38.9 - 50.3 % NEEL Comment:Testing performed by : [address] [address] Plt 321 150 - 400 K/cumm NEEL Comment:Testing performed by : [address] [address] MPV 10.0 9.1 - 12.3 fL NEEL SMITH Comment:Testing performed by : [address] [address] RBC 5.38 4.30 - 5.80 M/cumm NEEL SMITH Comment:Testing performed by : [address] [address] MCV 82.9 81.3 - 96.4 fL NEEL Comment:Testing performed by : [address] [address] MCH 27.9 27.1 - 33.3 pg NEEL Comment:Testing performed by : [address] [address] MCHC 33.6 32.3 - 35.7 g/dL NEEL Comment:Testing performed by : [address] [address] RDW CV 15.5(H) 11.1 - 14.9 % NEEL Comment:Testing performed by : [address] [address] RDW SD 46.7 35.7 - 48.1 fL NEEL Comment:Testing performed by : [address] [address] NRBC abs 0.00 0.00 - 0.01 K/cumm NEEL Comment:Testing performed by : [address] [address] Blood Venous blood specimen / Unknown 10/08/2024 7:25 PM CDT 10/08/2024 7:29 PM CDT us Lilliana LAWTON LAB BLOOD ORDERABLES Final Result NEEL [address] [facility] [place], [place] [id number] * Lipase (10/08/2024 7:25 PM CDT) Lipase 42 10 - 99 Units/L Comment:Testing performed by : [address] [address] Blood Venous blood specimen / Unknown 10/08/2024 7:25 PM CDT 10/08/2024 7:29 PM CDT Lilliana LAWTON LAB BLOOD ORDERABLES Final Result NEEL [address] [facility] [place] [address] * Comprehensive metabolic panel (10/08/2024 7:25 PM CDT) Pathologist [facility] [place] Sodium 141 135 - 145 mmol/L Comment:Testing performed by : [address] [address] Potassium, pl 4.3 3.3 - 4.9 mmol/L NEEL Comment: Hemolyzed; Potassium value may be falsely elevated by as much as 1.0 mmol/L. Suggest redraw and reanalysis. Testing performed by: [address] [address] Chloride 105 97 - 110 mmol/L NEEL Comment:Testing performed by : [address] [address] CO2 22 22 - 32 mmol/L NEEL Comment:Testing performed by : [address] [address] Anion gap 14 2 - 15 mmol/L NEEL Comment:Testing performed by : [address] [address] BUN 7 6 - 25 mg/dL NEEL Comment:Testing performed by : [address] [address] Creatinine 1.02 0.80 - 1.30 mg/dL NEEL Comment:Testing performed by : [address] [address] Glucose 104 70 - 199 mg/dL NEEL [...] was last revised 2022. Testing performed by: [address] [address] Calcium 10.1 8.5 - 10.3 mg/dL NEEL Comment:Testing performed by : [address] [address] Bilirubin, total 0.3 0.1 - 1.2 mg/dL [facility] Comment:Testing performed by : [address] [address] Protein, pl 7.7 6.5 - 8.5 g/dL [facility] Comment:Testing performed by : [address] [address] Albumin 4.8 3.5 - 5.0 g/dL [facility] Comment:Testing performed by : [address] [address] Alk phos 88 40 - 130 Units/L [facility] Comment:Testing performed by : [address] [address] ALT 24 7 - 55 Units/L [facility] Comment:Testing performed by : [address] [address] AST 25 10 - 50 Units/L [facility] Comment: Hemolyzed; result may be falsely elevated Testing performed by: [address] [address] Blood 10/08/2024 7:25 PM CDT 10/08/2024 7:29 PM CDT Lilliana LAWTON LAB BLOOD ORDERABLES Final Result NEEL MH [address] [facility] [place] [address] * CTA Chest Abdomen Pelvis (10/07/2024 6:41 [...] Melissa Phoenix M.D. SN T: Report ID: [id number] Reading Location: [place] [address] Procedure Note Melissa Phoenix MD - 10/07/2024 [...] Melissa Phoenix M.D. 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 SN T: Report ID: [id number] Reading Location: [id number] Procedure Note Melissa Phoenix MD - 10/07/2024 EXAM DESCRIPTION: XR CHEST 1 VIEW REASON FOR STUDY: Abd pain, unspecified C/o upper L quad abd pain. 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 SN T: Report ID: [id number] Reading Location: [id number] Jose Francisco Harper DO IMG XR PROCEDURES Final Res ult * Troponin T high-sensitivity 2-hour (10/07/2024 6:05 AM CDT) Trop T hs <6 <=22 ng/L Comment: Interpretive Data For further hscTnT resources including the diagnostic algorithm and an aid in interpretation, copy and paste this link: https://nrl.testcatalog.org/show/hsTrop Current Interpretive Data last revised 2020. Trop T hs delta 0 ng/L [facility] Trop T hs interp Insignificant [facility] Blood 10/07/2024 6:05 AM CDT 10/07/2024 6:07 AM CDT Jose Francisco Harper DO LAB BLOOD ORDERABLES Final Result Performing Organization Address City/[facility]/ZIP Co de Phone Number [facility] [address] [facility] [place] [address] * ECG 12 lead (10/07/2024 4:11 AM CDT) Ventricular Rate EKG/Min 65 BPM [facility] Atrial Rate 65 BPM [facility] PA-Interval (MSEC) 108 ms [facility] QRS-Interval (MSEC) 102 ms [facility] QT-Interval (MSEC) 388 ms [facility] QTc 403 ms [facility] P [place] 30 degrees [facility] R [place] 56 degrees [facility] T [place] 58 degrees [facility] Diagnosis Sinus rhythm with short PA Otherwise normal ECG When compared with ECG of 27-JUN-2024 09:54, No significant change was found Confirmed by ASHLIE BERMEO M.D. ([id number]) on 10/07/2024 11:47:08 PM [facility] 10/07/2024 4:11 AM CDT 10/07/2024 11:47 PM CDT Jose Francisco Harper DO ECG ORDERABLES Final Resul t Performing Organization Address City/[facility]/ZIP Co de Phone Number [facility] * Urinalysis reflex to microscopic and culture Urine (10/07/2024 4:06 AM CDT) Color, ur Yellow Yellow Clarity, ur Clear Clear [facility] Specific gravity, ur 1.013 1.003 - 1.030 [facility] pH, urine 5.5 [facility] Comment: Interpretive Data U rine pH is affected by diet, medications, systemic acid-base disturbances, and renal tubular function. pH may affect urinary stone formation. For example, urine pH below 6.0 may help reduce the tendency for calcium phosphate stones and pH greater than 6.0 may reduce the tendency for uric acid stone formation. Source: [facility] Current Interpretive Data was last revised on [...] culture not met. [facility] Urine 10/07/2024 4:06 AM CDT 10/07/2024 4:10 AM CDT us Jose Francisco Harper DO LAB MICROBIOLOGY - GENERAL ORDERABLES Final Result NEEL [address] [facility] [place] [address] * Troponin T high-sensitivity series (baseline, 2hr, [...] BLOOD ORDERABLES Final Result Performing Organization Address [facility] de Phone Number NEEL [address] [address] * eGFR (10/07/2024 4:00 AM CDT) Pathologist [...] 10/07/2024 4:02 AM CDT Jose Francisco Rubio Harper DO LAB BLOOD ORDERABLES Final Result Performing Organization Address [facility] Co de Phone Number NEEL [address] [place] [address] * (ABNORMAL) Differential, auto (10/07/2024 4:00 AM CDT) [facility] Neutrophil abs 5.81 1.50 - 6.50 K/cumm Imm gran abs 0.04 0.00 - 0.10 K/cumm [facility] Lymphocyte abs 3.73(H) 0.80 - 3.30 K/cumm [facility] Monocyte abs 1.14(H) 0.20 - 0.80 K/cumm [facility] Eosinophil abs 0.27 0.00 - 0.50 K/cumm [facility] Basophil abs 0.06 0.00 - 0.10 K/cumm [facility] Neutrophil pct 52.6 % [facility] Comment: Interpretive Data Percent cell count reference ranges are not reported, since discordance with absolute values may lead to misinterpretation of CBC data. Current Interpretive Data was last revised on 2017. Imm gran pct 0.4 % [facility] Comment: Interpretive Data Percent cell count reference ranges are not reported, since discordance with absolute values may lead to misinterpretation of CBC data. Current Interpretive Data was last revised on 2017. Lymphocyte pct 33.8 % [facility] Comment: Interpretive Data Percent cell count reference ranges are not reported, since discordance with absolute values may lead to misinterpretation of CBC data. Current Interpretive Data was last revised on 2017. Monocyte pct 10.3 % [facility] Comment: Interpretive Data Percent cell count reference ranges are not reported, since discordance with absolute values may lead to misinterpretation of CBC data. Current Interpretive Data was last revised on 2017. Eosinophil pct 2.4 % [facility] Comment: Interpretive Data Percent cell count reference ranges are not reported, since discordance with absolute values may lead to misinterpretation of CBC data. Current Interpretive Data was last revised on 2017. Basophil pct 0.5 % [facility] Comment: Interpretive Data Percent cell count reference ranges are not reported, since discordance with absolute values may lead to misinterpretation of CBC data. Current Interpretive Data was last revised on 2017. Blood 10/07/2024 4:00 AM CDT 10/07/2024 4:02 AM CDT Jose Francisco Harper DO LAB BLOOD ORDERABLES Final Result NEEL SMITH [address] [facility] [place] [address] * (ABNORMAL) CBC with auto differential (10/07/2024 4:00 AM CDT) WBC 11.05(H) 3.80 - 9.90 K/cumm Hgb 14.9 13.0 - 17.5 g/dL [facility] Hct 44.7 38.9 - 50.3 % [facility] Plt 281 150 - 400 K/cumm [facility] MPV 9.8 9.1 - 12.3 fL [facility] RBC 5.28 4.30 - 5.80 M/cumm [facility] MCV 84.7 81.3 - 96.4 fL [facility] MCH 28.2 27.1 - 33.3 pg [facility] MCHC 33.3 32.3 - 35.7 g/dL [facility] RDW CV 15.3(H) 11.1 - 14.9 % [facility] RDW SD 46.6 35.7 - 48.1 fL [facility] NRBC abs 0.00 0.00 - 0.01 K/cumm [facility] Blood Venous blood specimen / Unknown 10/07/2024 4:00 AM CDT 10/07/2024 4:02 AM CDT Jose Francisco Rubio [facility] LAB BLOOD ORDERABLES Final Result Performing Organization Address City/[facility]/ZIP Co de Phone Number [address] [place] [address] * (ABNORMAL) Lipase (10/07/2024 4:00 AM CDT) [facility] Lipase 104(H) 10 - 99 Units/L Blood Venous blood specimen / Unknown 10/07/2024 4:00 AM CDT 10/07/2024 4:02 AM CDT Jose Francisco Rubio [facility] LAB BLOOD ORDERABLES Final Result [address] [place] [address] * Comprehensive metabolic panel (10/07/2024 4:00 AM CDT) [facility] Sodium 142 135 - 145 mmol/L Potassium, pl 4.1 3.3 - 4.9 mmol/L [facility] Chloride 107 97 - 110 mmol/L [facility] CO2 23 22 - 32 mmol/L [facility] Anion gap 12 2 - 15 mmol/L [facility] BUN 9 6 - 25 mg/dL [facility] Creatinine 1.08 0.80 - 1.30 mg/dL [facility] Glucose 90 70 - 199 mg/dL [facility] [...] 2022. Calcium 9.4 8.5 - 10.3 mg/dL [facility] Bilirubin, total 0.2 0.1 - 1.2 mg/dL [facility] Protein, pl 7.1 6.5 - 8.5 g/dL [facility] Albumin 4.4 3.5 - 5.0 g/dL [facility] Alk phos 81 40 - 130 Units/L [facility] ALT 23 7 - 55 Units/L [facility] AST 24 10 - 50 Units/L [facility] Blood 10/07/2024 4:00 AM CDT 10/07/2024 4:02 AM CDT Jose Francisco Harper DO LAB BLOOD ORDERABLES Final Result [facility] [address] [facility] [place] [address] * eGFR (10/03/2024 7:08 AM CDT) eGFR [...] MD LAB BLOOD ORDERABLES Final Res ult [place] [id number] [facility] [place] [address] * (ABNORMAL) CBC without differential (10/03/2024 7:08 AM CDT) WBC 13.42(H) 3.80 - 9.90 K/cumm Hgb 12.4(L) 13.0 - 17.5 g/dL [facility] Hct 37.9(L) 38.9 - 50.3 % [facility] Plt 226 150 - 400 K/cumm [facility] MPV 10.0 9.1 - 12.3 fL [facility] RBC 4.43 4.30 - 5.80 M/cumm [facility] MCV 85.6 81.3 - 96.4 fL [facility] MCH 28.0 27.1 - 33.3 pg [facility] MCHC 32.7 32.3 - 35.7 g/dL [facility] RDW CV 15.4(H) 11.1 - 14.9 % [facility] RDW SD 48.1 35.7 - 48.1 fL [facility] NRBC abs 0.00 0.00 - 0.01 K/cumm [facility] Blood 10/03/2024 7:08 AM CDT 10/03/2024 7:22 AM CDT Fred Toth MD LAB BLOOD ORDERABLES Final Res ult Performing Organization Address City/[facility] Co de Phone Number [address] [address] * Lipase (10/03/2024 7:08 AM CDT) Pathologist [facility] Lipase 55 10 - 99 Units/L Blood 10/03/2024 7:08 AM CDT 10/03/2024 7:22 AM CDT us Fred Toth MD LAB BLOOD ORDERABLES Final Res ult Performing Organization Address [facility] de Phone Number [address] [address] * Basic metabolic panel (10/03/2024 7:08 AM CDT) [facility] Sodium 141 135 - 145 mmol/L Potassium, pl 4.4 3.3 - 4.9 mmol/L [facility] Chloride 107 97 - 110 mmol/L [facility] CO2 24 22 - 32 mmol/L [facility] Anion gap 10 2 - 15 mmol/L [facility] BUN 9 6 - 25 mg/dL [facility] Creatinine 0.96 0.80 - 1.30 mg/dL [facility] Glucose 100 70 - 199 mg/dL [facility] [...] 2022. Calcium 8.9 8.5 - 10.3 mg/dL [facility] Blood 10/03/2024 7:08 AM CDT 10/03/2024 7:22 AM CDT us Fred Toth MD LAB BLOOD ORDERABLES Final Res ult NEEL SMITH [address] [facility] [place] [address] * (ABNORMAL) Lipid panel (10/03/2024 1:54 AM [...] last revised on 2017. Testing performed by: [address] [address] Triglycerides 115 <=149 mg/dL NEEL Comment: Interpretive [...] last revised on 2017. Testing performed by: [address] [address] HDL 32(L) >=40 mg/dL NEEL Comment: Interpretive [...] last revised on 2017. Testing performed by: [address] [address] LDL, calculated 61 <=129 mg/dL NEEL SMITH Comment: Interpretive Data Ages [...] last revised on 2023. Testing performed by: [address] [address] Non-HDL Cholesterol 82 mg/dL NEEL Comment: Interpretive [...] last revised on 2017. Testing performed by: [facility] [address] [place] [address]., [address] Chol/HDL ratio 4 NEEL SMITH Comment:Testing performed by : [facility], [address] [place] [address]., [address] Blood 10/03/2024 1:54 AM CDT 10/03/2024 2:00 AM CDT Fred Toth MD LAB BLOOD ORDERABLES Final Res ult NEEL SMITH [address] [facility] [place] [address] * CT Abdomen Pelvis W Contrast (10/03/2024 [...] Aryan Jovel M.D. AR: GIOVANNA Report ID: [id number] [place] Location: [id number] Procedure Note Aryan Jovel MD - 10/03/2024 [...] Aryan Jovel M.D. AR: GIOVANNA Report ID: [id number] [place] Location: [place] [address] Fred Navneet TUCKER IM CT PROCEDURES Final Result * (ABNORMAL) Drugs of Abuse Screen, Urine with Reflex Confirmation (10/03/2024 12:51 AM CDT) [facility] Amphetamine, ur Not Detected CutOff 500ng/mL Comment: Interpretive Data - Amphetamines: Samples containing greater than 500 ng/mL d-methamphetamine or other cross-reacting amphetamine compounds are reported as positive. Amphetamine immunoassays are subject to significant false positive rates due to cross-reactivity of non-amphetamine drugs. Confirmatory testing required for definitive results. Current Interpretive Data was last reviewed 2022. Testing performed by: [address] [address] Barbiturates, ur Not Detected CutOff 200ng/mL [facility] Comment: Interpretive Data - Barbiturates: Samples containing greater than 200 ng/mL secobarbital or other cross-reacting barbiturate compounds are reported as positive. False positive and false negative results are possible. Confirmatory testing required for definitive results. Current Interpretive Data was last reviewed 2022. Testing performed by: [address] [address] Benzodiazepines, ur Not Detected CutOff 100ng/mL [facility] Comment: Interpretive Data - Benzodiazepines: Samples containing greater than 100 ng/mL nordiazepam or other cross-reacting compounds are reported as positive. False positive and false negative results are possible. Confirmatory testing required for definitive results. Current Interpretive Data was last reviewed 2022. Testing performed by: [address] [address] Cannabinoids, ur Screen Positive, presumptive (A) CutOff 50 ng/mL NEEL Comment: Interpretive Data - Cannabinoids: Samples containing greater than 50 ng/mL delta-9 THC -COOH or other cross- reacting compounds are reported as positive. False positive and false negative results are possible. Confirmatory testing required for definitive results. Current Interpretive Data was last reviewed 2022. Testing performed by: [facility], [address] [place] [address]., [address] Cocaine, ur Not Detected CutOff 150ng/mL [facility] Comment: Interpretive Data - Cocaine: Samples containing greater than 150 ng/mL benzoylecgonine or other cross- reacting compounds are reported as positive. False positive and false negative results are possible. Confirmatory testing required for definitive results. Current Interpretive Data was last reviewed 2022. Testing performed by: [address] [address] Fentanyl, Ur Not Detected CutOff 5 ng/mL [facility] Comment: Interpretive Data - Fentanyl: Samples containing greater than 1 ng/mL fentanyl or other cross-reacting fentanyl compounds are reported as positive. False positive and false negative results are possible. Confirmatory testing required for definitive results. Current Interpretive Data was last reviewed 2022. Testing performed by: [address] [address] [address] Methadone, ur Not Detected CutOff 300ng/mL [facility] Comment: Interpretive Data - Methadone: Samples containing greater than 300 ng/mL d,l-methadone or other cross-reacting compounds are reported as positive. False positive and false negative results are possible. Confirmatory testing required for definitive results. Current Interpretive Data was last reviewed 2022. Testing performed by: [address] [address] Opiates, ur Not Detected CutOff 300ng/mL [facility] Comment: Interpretive Data - Opiates: Samples containing greater than 300 ng/mL morphine or other cross-reacting compounds are reported as positive. False positive and false negative results are possible. Confirmatory testing required for definitive results. Current Interpretive Data was last reviewed 2022. Testing performed by: [address] [address] Oxycodone, ur Not Detected CutOff 100ng/mL [facility] Comment: Interpretive Data - Oxycodone: Samples containing greater than 100 ng/mL oxycodone or other cross-reacting compounds are reported as positive. False positive and false negative results are possible. Confirmatory testing required for definitive results. Current Interpretive Data was last reviewed 2022. Testing performed by: [address] [address] Phencyclidine, ur Not Detected CutOff 25 ng/mL NEEL SMITH Comment: Interpretive Data - Phencyclidine: Samples containing greater than 25 ng/mL phencyclidine or other cross-reacting compounds are reported as positive. False positive and false negative results are possible. Confirmatory testing required for definitive results. Current Interpretive Data was last reviewed 2022. Testing performed by: [address] [address] Urine Creatinine 102 mg/dL NEEL SMITH Comment: Interpretive Data Urine Creatinine: < 10 mg/dL is extremely dilute = or > 10 but < 20 mg/dL is dilute = or > 20 mg/dL is normal Current Interpretive Data was last revised on 2017. Testing performed by: [address] [address] Urine 10/03/2024 12:5 1 AM CDT 10/03/2024 [...] LAB URINE ORDERABLES Final Res ult NEEL [address] [facility] [place] [address] * Urinalysis reflex to microscopic and culture Urine (10/02/2024 10:09 PM CDT) Color, ur Yellow Yellow Comment:Testing performed by : [address] [address] Clarity, ur Clear Clear NEEL SMITH Comment:Testing performed by : [address] [address] Specific gravity, ur 1.011 1.003 - 1.030 NEEL Comment:Testing performed by : [address], [place]., [address] pH, urine 6.0 NEEL Comment: Interpretive Data U rine pH is affected by diet, medications, systemic acid-base disturbances, and renal tubular function. pH may affect urinary stone formation. For example, urine pH below 6.0 may help reduce the tendency for calcium phosphate stones and pH greater than 6.0 may reduce the tendency for uric acid stone formation. Source: [facility] Current Interpretive Data was last revised on 2017 Testing performed by: [address] [address] Protein, ur ql Negative Negative NEEL Comment:Testing performed by : [address] [address] Glucose, ur ql Negative Negative NEEL Comment:Testing performed by : [address] [address] Ketones, ur Negative Negative NEEL Comment:Testing performed by : [address] [address] Bilirubin, ur Negative Negative NEEL Comment:Testing performed by : [address] [address] Blood, ur Negative Negative NEEL Comment:Testing performed by : [address] [address] Urobilinogen, ur <2.0 <2.0 mg/dL NEEL Comment:Testing performed by : [address] [address] Nitrite, ur Negative Negative NEEL Comment:Testing performed by : [address] [address] Leukocyte esterase, ur Negative Negative NEEL Comment:Testing performed by : [address] [address] UA reflex comment Reflex conditions for microscopic UA and culture not met. NEEL Comment:Testing performed by : [address] [address] Urine 10/02/2024 10:0 9 PM CDT 10/02/2024 10:11 PM CDT María Elena Calvo MD LAB MICROBIOLOGY - GENERA L ORDERABLES Final Result Performing Organization Address [facility] Co de Phone Number NEEL [address] Department [place] [address] * eGFR (10/02/2024 9:51 PM CDT) eGFR [...] reviewed 2021. Testing performed by: [facility], [address] [place] [address]., [address] Blood 10/02/2024 9:51 PM CDT 10/02/2024 9:57 PM CDT María Elena Calvo MD LAB BLOOD ORDERABLES Renee l Result Performing Organization Address City/[facility]/ZIP Co de Phone Number NEEL [address] Department [place] [address] * (ABNORMAL) Differential, auto (10/02/2024 9:51 PM CDT) Pathologist [facility] Neutrophil abs 12.91(H) 1.50 - 6.50 K/cumm Comment:Testing performed by : [address] [address] Imm gran abs 0.10 0.00 - 0.10 K/cumm NEEL Comment:Testing performed by : [address], [place]., [address] Lymphocyte abs 1.91 0.80 - 3.30 K/cumm NEEL Comment:Testing performed by : [address], [place]., [address] Monocyte abs 1.44(H) 0.20 - 0.80 K/cumm [facility] Comment:Testing performed by : [address] [address] Eosinophil abs 0.14 0.00 - 0.50 K/cumm [facility] Comment:Testing performed by : [address] [address] Basophil abs 0.07 0.00 - 0.10 K/cumm [facility] Comment:Testing performed by : [address] [address] Neutrophil pct 78.0 % [facility] Comment: Interpretive Data Percent cell count reference ranges are not reported, since discordance with absolute values may lead to misinterpretation of CBC data. Current Interpretive Data was last revised on 2017. Testing performed by: [address] [address] Imm gran pct 0.6 % [facility] Comment: Interpretive Data Percent cell count reference ranges are not reported, since discordance with absolute values may lead to misinterpretation of CBC data. Current Interpretive Data was last revised on 2017. Testing performed by: [address] [address] Lymphocyte pct 11.5 % [facility] Comment: Interpretive Data Percent cell count reference ranges are not reported, since discordance with absolute values may lead to misinterpretation of CBC data. Current Interpretive Data was last revised on 2017. Testing performed by: [address] [address] Monocyte pct 8.7 % [facility] Comment: Interpretive Data Percent cell count reference ranges are not reported, since discordance with absolute values may lead to misinterpretation of CBC data. Current Interpretive Data was last revised on 2017. Testing performed by: [address] [address] Eosinophil pct 0.8 % NEEL Comment: Interpretive Data Percent cell count reference ranges are not reported, since discordance with absolute values may lead to misinterpretation of CBC data. Current Interpretive Data was last revised on 2017. Testing performed by: [address] [address] Basophil pct 0.4 % NEEL Comment: Interpretive Data Percent cell count reference ranges are not reported, since discordance with absolute values may lead to misinterpretation of CBC data. Current Interpretive Data was last revised on 2017. Testing performed by: [address] [address] Blood 10/02/2024 9:51 PM CDT 10/02/2024 9:57 PM CDT us María Elena Calvo MD LAB BLOOD ORDERABLES Renee antunez Result [facility] Department [place] [address] * (ABNORMAL) CBC with auto differential (10/02/2024 9:51 PM CDT) WBC 16.57(H) 3.80 - 9.90 K/cumm Comment:Testing performed by : [address] [address] Hgb 13.9 13.0 - 17.5 g/dL NEEL SMITH Comment:Testing performed by : [address] [address] Hct 41.0 38.9 - 50.3 % NEEL SMITH Comment:Testing performed by : [address] [address] Plt 281 150 - 400 K/cumm NEEL SMITH Comment:Testing performed by : [address] [address] MPV 9.9 9.1 - 12.3 fL NEEL Comment:Testing performed by : [address] [address] RBC 4.94 4.30 - 5.80 M/cumm NEEL SMITH Comment:Testing performed by : [address], [address] MCV 83.0 81.3 - 96.4 fL NEEL Comment:Testing performed by : [address] [address] MCH 28.1 27.1 - 33.3 pg NEEL Comment:Testing performed by : [address] [address] MCHC 33.9 32.3 - 35.7 g/dL NEEL Comment:Testing performed by : [address], [address] RDW CV 15.4(H) 11.1 - 14.9 % NEEL Comment:Testing performed by : [address], [address] RDW SD 46.5 35.7 - 48.1 fL NEEL Comment:Testing performed by : [address], [address] NRBC abs 0.00 0.00 - 0.01 K/cumm NEEL Comment:Testing performed by : [address], [address] Blood Venous blood specimen / Unknown 10/02/2024 9:51 PM CDT 10/02/2024 9:57 PM CDT us María Elena Calvo MD LAB BLOOD ORDERABLES Renee antunez Result NEEL [address] [facility] Department of Laboratories [place], [place] [id number] * (ABNORMAL) Lipase (10/02/2024 9:51 PM CDT) Lipase 444(H) 10 - 99 Units/L Comment:Testing performed by : [address] [address] Blood Venous blood specimen / Unknown 10/02/2024 9:51 PM CDT 10/02/2024 9:57 PM CDT María Elena Calvo MD LAB BLOOD ORDERABLES Renee tulio Result [facility] [address] [facility] Department [place] [address] * Comprehensive metabolic panel (10/02/2024 9:51 PM CDT) Sodium 143 135 - 145 mmol/L Comment:Testing performed by : [address] [address] Potassium, pl 3.9 3.3 - 4.9 mmol/L NEEL Comment:Testing performed by : [address] [address] Chloride 107 97 - 110 mmol/L NEEL Comment:Testing performed by : [address] [address] CO2 22 22 - 32 mmol/L NEEL Comment:Testing performed by : [address] [address] Anion gap 14 2 - 15 mmol/L NEEL Comment:Testing performed by : [address] [address] BUN 7 6 - 25 mg/dL NEEL Comment:Testing performed by : [address] [address] Creatinine 1.08 0.80 - 1.30 mg/dL NEEL Comment:Testing performed by : [address] [address] Glucose 129 70 - 199 mg/dL NEEL [...] was last revised 2022. Testing performed by: [facility], [address] [place] [address]., [address] Calcium 10.0 8.5 - 10.3 mg/dL NEEL Comment:Testing performed by : [address] [address] Bilirubin, total 0.3 0.1 - 1.2 mg/dL NEEL Comment:Testing performed by : [address] [address] Protein, pl 7.2 6.5 - 8.5 g/dL NEEL Comment:Testing performed by : [address] [address] Albumin 4.5 3.5 - 5.0 g/dL NEEL Comment:Testing performed by : [address] [address] Alk phos 84 40 - 130 Units/L NEEL Comment:Testing performed by : [address] [address] ALT 28 7 - 55 Units/L NEEL Comment:Testing performed by : [address] [address] AST 37 10 - 50 Units/L [facility] Comment:Testing performed by : [address] [address] Blood 10/02/2024 9:51 PM CDT 10/02/2024 9:57 PM CDT us María Elena Calvo MD LAB BLOOD ORDERABLES Renee antunez Result NEEL [address] [facility] Department [place] [address] * CT Abdomen Pelvis W Contrast (09/30/2024 [...] Esa Cao M.D. AG: GONZALES Report ID: [id number] [place] Location: [id number] Procedure Note Esa Cao MD - 09/30/2024 [...] Esa Cao M.D. AG: GONZALES Report ID: [id number] [place] Location: [place] [address] Radha Casas DO [facility] [place] CT PROCEDURES Final Result * (ABNORMAL) Urinalysis reflex to microscopic and culture Urine (09/30/2024 5:55 PM CDT) Color, ur Yellow Yellow Comment:Testing performed by : [address] [address] Clarity, ur Clear Clear NEEL Comment:Testing performed by : [address] [address] Specific gravity, ur 1.035(H) 1.003 - 1.030 NEEL Comment:Testing performed by : [address] [address] pH, urine 6.0 NEEL Comment: Interpretive Data U rine pH is affected by diet, medications, systemic acid-base disturbances, and renal tubular function. pH may affect urinary stone formation. For example, urine pH below 6.0 may help reduce the tendency for calcium phosphate stones and pH greater than 6.0 may reduce the tendency for uric acid stone formation. Source: [facility] Current Interpretive Data was last revised on 2017 Testing performed by: [facility], [address] [place] [address], [place]., [address] Protein, ur ql 1+(A) Negative NEEL Comment:Testing performed by : [facility], [address] [place] [address], [place]., [address] Glucose, ur ql Negative Negative NEEL Comment:Testing performed by : [address], [place]., [address] Ketones, ur 1+(A) Negative NEEL Comment:Testing performed by : [address], [place]., [address] Bilirubin, ur Negative Negative NEEL Comment:Testing performed by : [address], [place]., [address] Blood, ur Negative Negative NEEL Comment:Testing performed by : [address], [place]., [address] Urobilinogen, ur 2.0(A) <2.0 mg/dL NEEL Comment:Testing performed by : [address], [place]., [address] Nitrite, ur Negative Negative NEEL Comment:Testing performed by : [address] [address] Leukocyte esterase, ur Negative Negative NEEL Comment:Testing performed by : [address], [place]., [address] UA reflex comment Reflex to microscopic UA will be performed. NEEL Comment:Testing performed by : [address] [address] Urine 09/30/2024 5:55 PM CDT 09/30/2024 5:57 PM CDT Radha Casas DO LAB MICROBIOLOGY - GENERAL ORDE SAMEER Final Result NEEL SMITH [address] [facility] Department of Laboratories [place], [place] [id number] * (ABNORMAL) Urinalysis, microscopic only (09/30/2024 5:55 PM CDT) WBC, ur 6-10(A) 0 - 5 /HPF Comment:Testing performed by : [facility], [address] [place] [address]., [address] RBC, ur 3-5(A) 0 - 2 /HPF NEEL Comment:Testing performed by : [address], [place]., [address] Epithelial cells, squamous, ur 6-10(A) 0 - 5 /HPF NEEL Comment:Testing performed by : [address], [place]., [address] Mucous, ur Present(A) NEEL Comment:Testing performed by : [address], [place]., [address] Culture Reflex Comment Reflex conditions for urine culture (WBC >10) not met. NEEL Comment:Testing performed by : [address], [place]., [address] Urine 09/30/2024 5:55 PM CDT 09/30/2024 5:57 PM CDT us Radha Casas DO LAB URINE ORDERABLES Final Resu lt NEEL [address] [facility] [place] [address] * eGFR (09/30/2024 4:01 PM [...] was last reviewed 2021. Testing performed by: [address] [address] Blood 09/30/2024 4:01 PM CDT 09/30/2024 4:06 PM CDT Radha Casas DO LAB BLOOD ORDERABLES Final Resu lt [facility] [address] [facility] [place] [address] * Differential, auto (09/30/2024 4:01 PM CDT) Neutrophil abs 5.11 1.50 - 6.50 K/cumm Comment:Testing performed by : [address] [address] Imm gran abs 0.04 0.00 - 0.10 K/cumm NEEL Comment:Testing performed by : [address] [address] Lymphocyte abs 1.62 0.80 - 3.30 K/cumm NEEL Comment:Testing performed by : [address] [address] Monocyte abs 0.77 0.20 - 0.80 K/cumm NEEL Comment:Testing performed by : [address] [address] Eosinophil abs 0.18 0.00 - 0.50 K/cumm NEEL Comment:Testing performed by : [address] [address] Basophil abs 0.05 0.00 - 0.10 K/cumm NEEL Comment:Testing performed by : [address] [address] Neutrophil pct 65.9 % NEEL Comment: Interpretive Data Percent cell count reference ranges are not reported, since discordance with absolute values may lead to misinterpretation of CBC data. Current Interpretive Data was last revised on 2017. Testing performed by: [address] [address] Imm gran pct 0.5 % [facility] Comment: Interpretive Data Percent cell count reference ranges are not reported, since discordance with absolute values may lead to misinterpretation of CBC data. Current Interpretive Data was last revised on 2017. Testing performed by: [address] [address] Lymphocyte pct 20.8 % [facility] Comment: Interpretive Data Percent cell count reference ranges are not reported, since discordance with absolute values may lead to misinterpretation of CBC data. Current Interpretive Data was last revised on 2017. Testing performed by: [address] [address] Monocyte pct 9.9 % [facility] Comment: Interpretive Data Percent cell count reference ranges are not reported, since discordance with absolute values may lead to misinterpretation of CBC data. Current Interpretive Data was last revised on 2017. Testing performed by: [address] [address] Eosinophil pct 2.3 % [facility] Comment: Interpretive Data Percent cell count reference ranges are not reported, since discordance with absolute values may lead to misinterpretation of CBC data. Current Interpretive Data was last revised on 2017. Testing performed by: [address] [address] Basophil pct 0.6 % [facility] Comment: Interpretive Data Percent cell count reference ranges are not reported, since discordance with absolute values may lead to misinterpretation of CBC data. Current Interpretive Data was last revised on 2017. Testing performed by: [address] [address] Blood 09/30/2024 4:01 PM CDT 09/30/2024 4:06 PM CDT us Radha Casas DO LAB BLOOD ORDERABLES Final Resu lt NEEL [address] [facility] [place] [address] * (ABNORMAL) CBC with auto differential (09/30/2024 4:01 PM CDT) [facility] Signature WBC 7.77 3.80 - 9.90 K/cumm Comment:Testing performed by : [address] [address] Hgb 14.5 13.0 - 17.5 g/dL NEEL Comment:Testing performed by : [address] [address] Hct 43.0 38.9 - 50.3 % NEEL Comment:Testing performed by : [address], [address] Plt 278 150 - 400 K/cumm NEEL Comment:Testing performed by : [address] [address] MPV 9.8 9.1 - 12.3 fL NEEL Comment:Testing performed by : [address], [address] RBC 5.18 4.30 - 5.80 M/cumm NEEL Comment:Testing performed by : [address] [address] MCV 83.0 81.3 - 96.4 fL NEEL Comment:Testing performed by : [address] [address] MCH 28.0 27.1 - 33.3 pg NEEL Comment:Testing performed by : [address] [address] MCHC 33.7 32.3 - 35.7 g/dL NEEL Comment:Testing performed by : [address] [address] RDW CV 15.3(H) 11.1 - 14.9 % NEEL Comment:Testing performed by : [address] [address] RDW SD 46.4 35.7 - 48.1 fL NEEL Comment:Testing performed by : [address] [address] NRBC abs 0.00 0.00 - 0.01 K/cumm NEEL Comment:Testing performed by : [address] [address] Blood Venous blood specimen / Unknown 09/30/2024 4:01 PM CDT 09/30/2024 4:06 PM CDT Radha Casas DO LAB BLOOD ORDERABLES Final Resu lt Performing Organization Address City/[facility] Co de Phone Number NEEL [address] [address] * Lipase (09/30/2024 4:01 PM CDT) Pathologist [facility] Lipase 51 10 - 99 Units/L Comment:Testing performed by : [address] [address] Blood Venous blood specimen / Unknown 09/30/2024 4:01 PM CDT 09/30/2024 4:06 PM CDT Radha Casas LAB BLOOD ORDERABLES Final Resu lt Performing Organization Address [facility] de Phone Number QUINTEN[address] [address] * Comprehensive metabolic panel (09/30/2024 4:01 PM CDT) Pathologist [facility] Sodium 141 135 - 145 mmol/L Comment:Testing performed by : [address] [address] Potassium, pl 4.0 3.3 - 4.9 mmol/L NEEL Comment:Testing performed by : [address] [address] Chloride 106 97 - 110 mmol/L NEEL Comment:Testing performed by : [address] [address] CO2 24 22 - 32 mmol/L NEEL Comment:Testing performed by : [address] [address] Anion gap 11 2 - 15 mmol/L NEEL Comment:Testing performed by : [address] [address] BUN 9 6 - 25 mg/dL NEEL Comment:Testing performed by : [address] [address] Creatinine 1.00 0.80 - 1.30 mg/dL NEEL Comment:Testing performed by : [address] [address] Glucose 107 70 - 199 mg/dL NEEL [...] was last revised 2022. Testing performed by: [address] [address] Calcium 9.6 8.5 - 10.3 mg/dL NEEL Comment:Testing performed by : [address] [address] Bilirubin, total 0.4 0.1 - 1.2 mg/dL NEEL Comment:Testing performed by : [address] [address] Protein, pl 7.1 6.5 - 8.5 g/dL NEEL Comment:Testing performed by : [address] [address] Albumin 4.3 3.5 - 5.0 g/dL NEEL Comment:Testing performed by : [address] [address] Alk phos 87 40 - 130 Units/L NEEL Comment:Testing performed by : [address] [address] ALT 25 7 - 55 Units/L NEEL Comment:Testing performed by : [address] [address] AST 25 10 - 50 Units/L NEEL SMITH Comment:Testing performed by : [facility], [address] [place]., [address] Blood 09/30/2024 4:01 PM CDT 09/30/2024 4:06 PM CDT us Radha Casas DO LAB BLOOD ORDERABLES Final Resu lt NEEL [address] [facility] [place] [address] from Last 3 Months Advance Directives For more information, please contact: [phone] * Full Code (Latest Code Status on [...] 8:00 AM 06/30/2022 5:06 PM Care Teams Electrocardiogram Technician Relationship Specialty Start Date End Date Td Lopez MD [address] [facility] [address] [place] [address] PCP - General Family Medicine 11/09/20 Angie Woodard MD [address] [facility] [address] [place] [address] Consulting Physician Gastroenterology 07/17/21 Vimal Woodruff MD [address] [facility] [address] [place] [address] Consulting Physician Gastroenterology 02/10/22
--- OUTSIDE RECORDS SUMMARY | 2024-11-29 00:46 | XMS_ITS ---
Author Organization [facility] Address [address] [place] [address] Care Team Providers Care Neonatal Nurse Practitioner Name Role Phone John TUCKER, Td Primary Care Provider Unavaila jenny FIGUEROA METAL BOX MAKER, NATALIYA Unavailable [phone] IFRAH TUCKER, BRODERICK Unavailable REASON FOR VISIT ERCP stent pull INPT Encounters Encounter Location Date Provider Diagnosis [facility] - Op [address] [facility] Scheduling [place], [place] [id number] 09/23/2023 BRODERICKNICKY RG Plan Of Treatment No Information Progress Notes * Donovan BROWN MDOB: 2 (44 yo M)Acc No.[id number]:09/23/2023 Patient: Donovan HASSAN Gaby Provider: William Rg MD, FASGE :1980 A ge:43 Y S ex:Male Date:09/23/2023 Address:[address] [facility] Pcp:Td Lopez MD * * Electronic signature of ROSETTE RG MD, MD on 11/29/2024 at 01:46 AM EDT Sign off status: Pending * Provider: William Rg MD, FASGE Date: 0 09/23/2023 Generated for Printi ng/Faxing/eTransmitting on: 0 11/29/2024 01:46 AM EDT
--- OUTSIDE RECORDS SUMMARY | 2024-11-29 00:46 | XMS_ITS | Clinical Summary ---
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 CLERK Gender Identity Not on file Sexual Orientation Not on file Last Filed Vital Signs Vital Sign Reading Time Taken Comments Blood Pressure 119/84 07/11/2022 2:03 AM CUSTOMER EXPERIENCE RETAIL CLERK Pulse 80 07/11/2022 2:03 AM CUSTOMER EXPERIENCE RETAIL CLERK Temperature 36.3 C (97.4 F) 07/11/2022 2:03 AM CUSTOMER EXPERIENCE RETAIL CLERK Respiratory Rate 18 07/11/2022 2:03 AM CUSTOMER EXPERIENCE RETAIL CLERK Oxygen Saturation 97% 07/11/2022 2:03 AM CUSTOMER EXPERIENCE RETAIL CLERK Inhaled Oxygen Concentration - - Weight 79.4 kg (175 lb) 07/10/2022 8:06 PM CUSTOMER EXPERIENCE RETAIL CLERK Height 177.8 cm (5' 10) 07/10/2022 8:06 PM CUSTOMER EXPERIENCE RETAIL CLERK Body Mass Index 25.11 07/10/2022 8:06 PM CUSTOMER EXPERIENCE RETAIL CLERK Plan of Treatment Health Maintenance Due Date Last Done Comments HPV VACCINES (1 - Male 3-dos e series) 1996 HEPATITIS B VACCINES (1 of 3 - 19+ 3-dose series) 2000 COVID-19 Vaccine (4 - 2023-2 5 season) 2024 10/29/2021, 11/02/2020, 10/05/2020 INFLUENZA VACCINE (#1) 2024 , 02/29/2020, 02/09/2018 DTAP/TDAP/TD VACCINES (2 - T d or Tdap) 10/30/2031 10/29/2021 [place] [address] [employer] MEDICAID [place]ICAID [place]
--- OUTSIDE RECORDS SUMMARY | 2024-11-29 00:46 | XMS_ITS | Encounter Summary ---
Author Organization [facility] Healthcare Address [address] [place] [address] Care Team Providers Care Necktie Operator Pockets And Pieces Name Role Phone Td Lopez MD Primary Care Provider + Angie Woodard MD Unavailable [phone] Vimal Woodruff MD Unavailable [phone] PastorAlannah MA Unavailable [phone] PastorAlannah fair MA Unavailable [phone] PastorAlannah fair MA Unavailable [phone] Eun Arana RN Unavailable Lakshmi Garcia LPN Unavailable [phone] Niki Burns MA Unavailable Encounter Details Date Type Department Care Team (Late st Contact Info) Description 12/30/2023 Orders Only [facility] Health Information Management [address] [place] [address] Scanning, Provider Social History Tobacco Use Types Packs/Day Years Used Date Smoking Tobacco: Every Day Cigarettes Smokeless Tobacco: Never Alcohol Use Standard Drinks/Week Comments Not Currently 0 (1 standard drink = 0.6 oz pur e alcohol) [facility] Utilities Answer Date Recorded In the past 12 months has [employer] electric, gas, oil, or water company threatened [...] attend chur ch or mosque services? Never 09/21/2023 Do you belong to [...] slept in a penitentiary (including now)? No 09/21/2023 Personal Safety Answer Date Recorded Have you ever been in or are you currently in a harmful physical or emotional relationship or is someone making you feel afraid or unsafe? Denies 01/01/2024 Sex and Gender Information Value Date Recorded Sex Assigned at Not on file Legal Sex Male 3:38 AM VALIDATION ANALYST Gender Identity Not on file Sexual [...] on filedocumented in this encounter Care Teams Necktie Operator Pockets And Pieces Relationship Specialty Start Date End Date Td Lopez MD [address] [facility] [address] [place] [address] PCP - General Family Medicine 11/09/20 Angie Woodard MD [address] [facility] [address] [place] [address] Consulting Physician Gastroenterology 07/17/21 Vimal Woodruff MD [address] [facility] [address] [place] [address] Consulting Physician Gastroenterology 02/10/22 Alannah Baumann MA [address] [place] [address] [address] [place] [address] ACO Care Substation Technician 12/31/23 01/05/24 Alannah Baumann MA [address] [place] [address] [address] [place] [address] ACO Care Substation Technician 06/29/24 06/30/24 Alannah Baumann MA [address] [place] [address] [address] [place] [address] ACO Care Substation Technician 08/03/24 08/03/24 Eun Arana, RN [address] [place] [address] [address] [place] [address] Director Of Child Welfare Services 08/17/24 08/25/24 Lakshmi Garcia LPN [address] [place] [address] [address] [place] [address] Director Of Child Welfare Services 10/05/24 10/05/24 Niki Burns MA [address] [place] [address] [address] [place] [address] ACO Care Substation Technician 10/18/24 10/19/24 documented as of this encounter
[2024-11-29 01:36] VITALS: BP 128/85; PULSE 84; RESP 12; TEMP 36.9; O2SAT 97
[2024-11-29 01:48] LABS: Hematocrit 44.4 % (42.0-52.0); Hemoglobin 15.0 g/dL (14.0-18.0); Immature Granulocyte Percent A 0.5 % (0-0.5); Lymphocytes Absolute Auto 1.57 K/mm3 (0.9-3.2); Mean Corpuscular HGB Conc 33.8 g/dl (32-36); Mean Corpuscular Hemoglobin 28.8 pg (26-34); Mean Corpuscular Volume 85.4 fl (80-100); Nucleated Red Blood Cells Absolute Auto 0.000 K/mm3 (0.0-0.012); Nucleated Red Blood Cells Perc 0.0 % (0.0-0.2); Platelet Count Result 282 k/mm3 (150-375); Red Blood Count 5.20 M/mm3 (4.6-6.20); White Blood Count 13.6 K/mm3 (4.5-10.0)
--- NOTE | 2024-11-29 01:51 | ED.ABDPAIN ---
HPI - Abdominal Pain General Chief Complaint: Abdominal Pain Stated Complaint: abd pain, n/v Time Seen by Provider: 11/29/24 01:40 History of Present Illness HPI narrative: 44-year-old male with a history of chronic abdominal pain, chronic pancreatitis, cyclic vomiting syndrome. Patient is well known to this emergency department. He presents the emergency department with nausea vomiting epigastric pain and feeling very similar to his previous pancreatitis pain. No reported recent drinking. Last marijuana intake several weeks ago. Seen at this facility for very similar symptoms many times. States there is no changes to his chronic pain symptoms today. Does not have a GI appointment upcoming but does have a specialist to see. Endorses nauseousness and vomiting at home but no chest pain or retrosternal chest discomfort. No shortness of breath. No fever, chills or trauma. Otherwise was in his normal state of health. Been a couple of months since the last time this happened. Requesting medications by name including dilaudid and states that morphine makes his nausea worse. Related Data Home Medications ?Medication ?Instructions ?Recorded ?Confirmed ?Last Taken ?Type apixaban 5 mg tablet (Eliquis) 5 mg PO BID 04/05/23 04/05/23 Unknown History dicyclomine 20 mg tablet 20 mg PO BID 04/05/23 04/05/23 Unknown History Allergies Allergy/AdvReac Type Severity Reaction Status Date / Time metoclopramide Allergy Unknown Muscle Verified 11/29/24 02:07 Spasms haloperidol (From Haldol) AdvReac Mild Muscle Verified 11/29/24 02:07 Spasms doxycycline AdvReac Unknown Gastrointestinal Verified 11/29/24 02:07 Upset sulfamethoxazole AdvReac Unknown Gastrointestinal Verified 11/29/24 02:07 Upset trimethoprim AdvReac Unknown Gastrointestinal Verified 11/29/24 02:07 Upset prochlorperazine (From AdvReac Muscle Verified 11/29/24 02:07 Compazine) Spasms Sulfa (Sulfonamide AdvReac Gastrointestinal Verified 11/29/24 02:07 Antibiotics) Upset Review of Systems Review of Systems: As reviewed [facility]PI [facility] Past Medical History Medical History Kidney infarction Chronic pancreatitis Cyclical vomiting Anxiety Depression Kidney stones Hypertension GERD (gastroesophageal reflux disease) Cyclic vomiting syndrome IBD (inflammatory bowel disease) Gastroenteritis Pancreatitis Colitis Surgical History Surgical History Hx of cholecystectomy Family History Family History Grandparent Acute myocardial infarction Social History Social History Smoking packs per day: 1 Smoking cigarettes per day: 20.0 Years smoked: 20 Smoking pack-years: 20.00 Smoking status: Current every day smoker Tobacco type: cigarettes Alcohol intake: current Drinks per week: 3 Substance use: current Substance use type: marijuana Last use: PROBABLY ABOUT A WEEK AGOago Lack of Transportation: No Lack of Food: Never True Current Housing: I Have Housing Concerned About Future Housing: No Difficulty Paying Gas/Electric Bills: No Difficulty Paying for Meds: No Currently Unemployed: No Education: High School Diploma/GED Difficulty w/ Childcare or Family Care: No Living arrangements: alone Gender identity (if verbalized by the patient): Male Sexual Orientation (if Verbalized by the Patient): Straight or Heterosexual Spiritual care concerns: No Exam Narrative: GENERAL: Not in any acute distress, complaining of epigastric pain HEAD: [Normocephalic, atraumatic.] EYES: [PERRLA and EOMI.] ENT: Nares clear, no rhinorrhea or epistaxis. Mucous membranes moist. NECK: Supple. CHEST: [Clear to auscultation. No respiratory distress.] HEART: [Regular rate and rhythm]. No murmur heard. [Normal peripheral pulses.] ABDOMEN: [Soft, nondistended], no reproducible tenderness to palpation, [No rigidity or guarding] EXTREMITIES: Normal range of motion. [No edema.] SKIN: Warm, dry, no rash. NEURO: [No focal deficits]. Alert and oriented [x3.] PSYCH: [Normal mood and affect.] Course Vital Signs Vital signs: Vital Signs Temperature 36.9 C 11/29/24 00:43 Pulse Rate 90 11/29/24 00:43 Respiratory Rate 18 11/29/24 00:43 Blood Pressure 164/106 H 11/29/24 00:43 Pulse Oximetry 99 11/29/24 00:43 Oxygen Delivery Room Air 11/29/24 00:43 Temperature 36.9 C 11/29/24 01:36 Pulse Rate 84 11/29/24 01:36 Respiratory Rate 12 11/29/24 01:36 Blood Pressure 128/85 11/29/24 01:36 Pulse Oximetry 97 11/29/24 01:36 Oxygen Delivery Room Air 11/29/24 01:36 MDM - Abdominal Pain MDM Narrative Medical decision making narrative: 44-year-old male with a history of chronic abdominal pain, chronic pancreatitis, cyclic vomiting syndrome. Patient is well known to this emergency department. He presents the emergency department with nausea vomiting epigastric pain and feeling very similar to his previous pancreatitis pain. No reported recent drinking. Last marijuana intake several weeks ago. Seen at this facility for very similar symptoms many times. States there is no changes to his chronic pain symptoms today. Does not have a GI appointment upcoming but does have a specialist to see. Endorses nauseousness and vomiting at home but no chest pain or retrosternal chest discomfort. No shortness of breath. No fever, chills or trauma. Otherwise was in his normal state of health. Been a couple of months since the last time this happened. Requesting medications by name including dilaudid and states that morphine makes his nausea worse. Patient is hemodynamically stable with normal vital signs here. No tachycardia, fever, hypoxia blood pressure concerns. Soft nontender nondistended abdomen. Patient complaining of chronic abdominal pain. Laboratory studies were drawn, urinalysis obtained. Given 1 dose of Dilaudid, dicyclomine IM, Zofran and fluids. Will be discharged home with GI follow-up upon completion of workup and labs. Labs show chronic leukocytosis without any significant elevations. Normal hemoglobin. Normal platelets. Electrolytes unremarkable. Normal creatinine, normal glucose, normal LFTs. Normal lipase. Urinalysis without infection. Patient re-evaluated and wants more narcotics. Informed them that he would not be receiving any additional narcotic pain medications for his chronic pain at this time. He was given Toradol and discharged. Medical Records Attestation: I reviewed the patient's medical records. Lab Data Attestation: I reviewed the patient's lab results. 11/29/24 01:38 11/29/24 01:38 Labs: Lab Results 11/29/24 Range/Units 01:38 WBC 13.6 H (4.5-10.0) K/mm3 RBC 5.20 (4.6-6.20) M/mm3 Hgb 15.0 (14.0-18.0) g/dL Hct 44.4 (42.0-52.0) % MCV 85.4 (80-100) fl MCH 28.8 (26-34) pg MCHC 33.8 (32-36) g/dl RDW 15.1 H (11.5-14.5) % Plt Count 282 (150-375) k/mm3 MPV 9.6 (7.4-10.4) fl Immature Gran % (Auto) 0.5 (0-0.5) % Neut % (Auto) 77.7 H (45.5-73.1) % Lymph % (Auto) 11.6 L (18.3-44.2) % Rolette % (Auto) 9.5 H (2.6-8.5) % Eos % (Auto) 0.3 (0-4.4) % Baso % (Auto) 0.4 (0.2-1.2) % Lymph # (Auto) 1.57 (0.9-3.2) K/mm3 Rolette # (Auto) 1.3 H (0.1-0.6) K/mm3 Eos # (Auto) 0.0 (0-0.3) K/mm3 Baso # (Auto) 0.1 (0.0-0.1) K/mm3 Abs Immat Gran (auto) 0.07 H (0.00-0.031) K/mm3 Absolute Neuts (auto) 10.6 H (1.3-6.7) K/mm3 Absolute Nucleated RBC 0.000 (0.0-0.012) K/mm3 Nucleated RBC % 0.0 (0.0-0.2) % Sodium 135 L (137-145) mmol/L Potassium 4.0 (3.4-5.0) mmol/L Chloride 100 (98-107) mmol/L Carbon Dioxide 28 (22-30) mmol/L Anion Gap 7 (4-12) mmol/L BUN 8 L (9-20) mg/dL Creatinine 1.01 (0.7-1.3) mg/dL Estim Creat Clear Calc 86 ml/min Estimated GFR > 60 (59 - ) Glucose 115 H (65-110) mg/dL Calcium 9.9 (8.4-10.2) mg/dL Total Bilirubin 0.8 (0.2-1.3) mg/dL AST 28 (17-59) U/L ALT 25 (6-50) U/L Alkaline Phosphatase 76 (38-126) U/L Total Protein 7.5 (6.3-8.2) g/dL Albumin 4.6 (3.5-5.1) g/dL Lipase 58 (23-300) U/L Urine Color Yellow (Yellow) Urine Appearance Cloudy H (Clear) Urine pH 7.0 (5.0-9.0) Ur Specific Winger 1.021 (1.001-1.035) Urine Protein Trace (Negative) mg/dL Urine Glucose (UA) Negative (Negative) mg/dL Urine Ketones Trace H (Negative) mg/dL Ur Blood (Man) Negative (Negative) Urine Nitrate Negative (Negative) Urine Bilirubin Negative (Negative) Urine Urobilinogen 1.0 (<2.0) mg/dL Leukocyte Esterase Rfl Negative (Negative) CHRIS/UL Urine RBC 0-2 (0-2) /hpf Urine WBC 0-5 (0-3) /hpf Ur Squamous Epith Cells None seen (Few) /hpf Urine Bacteria None seen /hpf Urine Casts 0-2 Discharge Plan Discharge Clinical Impression: Chronic abdominal pain, Cyclic vomiting syndrome Patient Disposition: Home Condition: Stable Instructions: Antibiotic Form, Chronic Abdominal Pain (DC) Additional Instructions: Your laboratory studies are unremarkable, no signs of pancreatitis. Symptoms consistent with chronic abdominal pain. Follow-up with her GI doctor. Take Bentyl at home. Return with any emergencies. Patient Language: Moldovan Prescriptions: No Action omeprazole 20 mg capsule,delayed release(DR/EC) 20 mg PO DAILY Qty: 14 0RF ondansetron 4 mg tablet,disintegrating 4 mg PO Q8H PRN (Reason: nausea and vomiting) Qty: 14 0RF dicyclomine 20 mg tablet 20 mg PO QID Qty: 20 0RF promethazine 25 mg tablet 25 mg PO Q6H PRN (Reason: nausea and vomiting) Qty: 20 0RF ondansetron 4 mg tablet,disintegrating 4 mg PO Q8H PRN (Reason: nausea and vomiting) Qty: 10 0RF hyoscyamine sulfate [Levsin] 0.125 mg tablet 0.125 mg PO QID Qty: 14 0RF ondansetron 4 mg tablet,disintegrating 4 mg PO Q6H PRN (Reason: nausea and vomiting) Qty: 10 0RF alum-mag hydroxide-simeth [Maalox Advanced] 200-200-20 mg/5 mL suspension 10 ml PO QID PRN (Reason: dyspepsia) Qty: 300 0RF Rx Instructions: administer between meals and at bedtime ondansetron 4 mg tablet,disintegrating 4 mg PO Q8H PRN (Reason: nausea and vomiting) Qty: 10 0RF dicyclomine 20 mg Tablet 20 mg PO BID Patient Comments: HAVE NOT HAD A DOSE. UNABLE TO OBTAIN FROM HIS PHARMACY Eliquis 5 mg Tablet 5 mg PO BID dicyclomine 20 mg tablet 20 mg PO BID Qty: 30 0RF famotidine [Pepcid] 20 mg tablet 20 mg PO BID 42 Days Qty: 84 0RF ondansetron 4 mg tablet,disintegrating 4 mg PO Q8H PRN (Reason: nausea and vomiting) Qty: 10 0RF dicyclomine 20 mg tablet 20 mg PO TID PRN (Reason: abdominal pain) Qty: 20 0RF Follow-up/Referrals: John,Td Lewis MD [Primary Care Provider] - Time of Disposition: 02:57
[2024-11-29] MEDS: DEXTROSE 5%/LACTATED RINGERS 1,000 ML 1000 ML IV CONT (02:01)
[2024-11-29] MEDS: DICYCLOMINE HCL INJ 20 MG/2 ML VIAL IM (02:01)
[2024-11-29] MEDS: ONDANSETRON INJ 4 MG/2 ML VIAL IV PUSH (02:01)
[2024-11-29 02:02] LABS: Add Urine Microscopic? YES; Appearance Urine Cloudy (Clear); Glucose Urine UA Negative (Negative); Leukocyte Esterase Ur Negative LEU/UL (Negative); Nitrate Urine Negative (Negative); Non Pathogenic Casts 0-2; Specific Grav Ur 1.021 (1.001-1.035)
[2024-11-29] MEDS: HYDROmorphone HCL INJ (*CRX) 2 MG/ML VIAL 1 MG IV PUSH (02:02)
[2024-11-29] MEDS: FAMOTIDINE 20 MG/2 ML VIAL IV PUSH (02:02)
[2024-11-29 02:11] LABS: Alanine Aminotransferase 25 U/L (6-50); Albumin Level 4.6 g/dL (3.5-5.1); Alkaline Phosphatase 76 U/L (38-126); Anion Gap 7 mmol/L (4-12); Aspartate Amino Transferase 28 U/L (17-59); Bilirubin,Total 0.8 mg/dL (0.2-1.3); Blood Urea Nitrogen 8 mg/dL (9-20); Calcium 9.9 mg/dL (8.4-10.2); Carbon Dioxide 28 mmol/L (22-30); Chloride 100 mmol/L (98-107); Estimated CRCL calculation 86 ml/min; Estimated Glomerular Filt Rate > 60; Glucose 115 mg/dL (65-110); Lipase 58 U/L (23-300); Potassium 4.0 mmol/L (3.4-5.0); Sodium 135 mmol/L (137-145); Total Protein 7.5 g/dL (6.3-8.2)
--- OUTSIDE RECORDS SUMMARY | 2024-11-29 02:58 | XMS_ITS | Referral Summary ---
Author Organization [facility] Address [address] [place] [address] Care Team Providers Care Gold Miner Name Role Phone Td Lopez MD Primary Care Provider + Angie Woodard MD Unavailable [phone] Vimal Woodruff MD Unavailable [phone] Encounters Date Type Department Care Team Description 11/26/2024 2:02 AM CDT - 11/26/2024 4:25 AM CDT Emergency [facility] Emergency Department [facility] [place] [address] Blue Warren MD Abdominal pain (Primary Dx); Nausea and vomiting, unspecified vomiting type Discharge Disposition: Discharge to home or self care 10/20/2024 [facility] ED Outreach [facility] Accountable Care Organization [address] [place] [address] Niki Burns MA 10/19/2024 DIPTI ED Outreach [facility] Care [address] [address] Niki Burns MA 10/18/2024 1:45 PM CDT - 10/18/2024 7:54 PM CDT Emergency [facility] Emergency Department [address] [place] [address] Oswaldo Burns MD Chronic abdominal pain (Primary Dx) Discharge Disposition: Discharge to home or self care 10/18/2024 DIPTI ED Outreach [address] [address] Niki Burns MA 10/14/2024 12:14 AM CDT - 10/14/2024 2:13 AM CDT Emergency [facility] Emergency Department [address] [place] [address] Enteritis (Primary Dx) Discharge Disposition: Discharge to home or self care 10/13/2024 4:36 AM CDT - 10/13/2024 10:20 AM CDT Emergency [address] [address] Rodney Mejia MD Journagan, Kevin, MD Abdominal pain (Primary Dx); History of pancreatitis; Chronic abdominal pain; Nausea and vomiting, unspecified vomiting type Discharge Disposition: Discharge to home or self care 10/08/2024 7:54 PM CDT - 10/08/2024 8:06 PM CDT Emergency [facility] Emergency Department [address] [place] [address] Chronic abdominal pain (Primary Dx) Discharge Disposition: Discharge to home or self care 10/07/2024 5:29 AM CDT - 10/07/2024 8:34 AM CDT Emergency [address] [address] Jose Francisco Harper DO Prograis, Shannon Smith, MD Abdominal pain (Primary Dx); Chronic pancreatitis, unspecified pancreatitis type (HCC) Discharge Disposition: Discharge to home or self care 10/06/2024 11:00 AM CDT Office Visit [facility] Primary Care [address] [facility] [address] [place] [address] Td Lopez MD Abdominal pain (Primary Dx); Other chronic pancreatitis (HCC); Gastroesophageal reflux disease without esophagitis; Irritable bowel syndrome with both constipation and diarrhea 10/05/2024 DIPTI IP Outreach [address] [address] Lakshmi Garcia LPN 10/04/2024 Telephone [facility] [address] [facility] [address] [place] [address] Td Lopez MD schedule DIPTI appt 10/02/2024 9:53 PM CDT - 10/03/2024 11:39 AM CDT Hospital Encounter [address] [place] [address] María Elena Calvo MD Medavaram, Atul, MD Sada, MD Kirk Gardner, MD Eben Abdominal pain (Primary Dx); Acute pancreatitis, unspecified complication status, unspecified pancreatitis type; Pain, dental Discharge Disposition: Discharge to home or self care 09/30/2024 5:44 PM CDT - 09/30/2024 8:58 PM CDT Emergency [facility] Emergency Department [address] [place] [address] Radha Casas DO Abdominal pain [...] 03/25/2024 Assessment & Plan (03/25/2024 11:50 AM FURNITURE CRATER): - suspect just muscle strain - will check xray - offered PT but pt refused. Protein-calorie malnutrition, moderate Abdominal pain, generalized 09/19/2023 Assessment & Plan (09/25/2023 12:23 PM CDT): - improving - will give small amount of norco until pt heals from his procedure - f/u with GI Current use of keno terminal operator anticoagulation 023 Assessment & Plan (09/25/2023 12:23 PM CDT): - stable - continue eliquis Assessment & Plan (03/20/2023 11:08 AM FURNITURE CRATER): - restart eliquis due to life long need for anticoagulation History of thrombosis 03/20/2023 Assessment & Plan (09/25/2023 12:22 PM CDT): - stable - continue eliquis Assessment & Plan (03/20/2023 11:08 AM FURNITURE CRATER): - restart eliquis due to life long [...] famotidine Assessment & Plan (03/20/2023 11:08 AM FURNITURE CRATER): - stable - continue current medication Renal [...] eval. Assessment & Plan (03/25/2024 11:49 AM FURNITURE CRATER): - ref to derm for eval Drug [...] pain Assessment & Plan (03/25/2024 11:49 AM FURNITURE CRATER): - poor control - continue hyosciamine, famotidine, zofran - ref to GI for continued treatment Assessment & Plan (03/20/2023 11:07 AM FURNITURE CRATER): - stable - continue current medication Duodenal [...] prn Assessment & Plan (07/15/2019 11:44 AM FURNITURE CRATER): - stable - continue bentyl and amitriptyline [...] medication Assessment & Plan (07/15/2019 11:44 AM FURNITURE CRATER): - stable - continue creon Annual physical [...] able Assessment & Plan (07/15/2019 11:46 AM FURNITURE CRATER): - encourage healthy diet, exercise - check labs - encouraged quitting smoking Enteritis 02/18/2019 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 Assessment & Plan (07/15/2019 11:37 AM FURNITURE CRATER): - encouraged pt to quit smoking Abdominal pain, epigastric 09/17/2018 Overview (09/17/2018): Added automatically from request for surgery [id number] Assessment & Plan (10/14/2022 8:30 PM CDT): [...] GI Assessment & Plan (03/20/2023 11:07 AM FURNITURE CRATER): - stable - continue current medication per [...] 09/17/202209/08 Assessment & Plan (03/20/2023 11:08 AM FURNITURE CRATER): - stable off meds - will monitor [...] 09/25/2023 Assessment & Plan (03/26/2021 11:41 AM FURNITURE CRATER): - stable today - continue current medications [...] lexapro Assessment & Plan (07/15/2019 11:38 AM FURNITURE CRATER): - stable - continue current plan Gastroesophageal reflux dise ase without esophagitis 07/15/2019 03/18/2023 Overview (07/15/2019): - GERD managed by Dr Woodard - Pt on omeprazole and carafate for sx control Assessment & Plan (01/01/2021 12:09 PM CDT): - stable - continue current medication Assessment & Plan (02/07/2020 2:32 PM CDT): - stable - continue current medication Assessment & Plan (07/15/2019 11:38 AM FURNITURE CRATER): - stable - continue omeprazole and carafate Viral illness 07/08/2019 02/12/2021 Assessment & Plan (07/09/2019 9:12 AM FURNITURE CRATER): Medrol Dosepak as directed. Recommended Mucinex plain [...] (09/17/2018): Added automatically from request for surgery [id number] Assessment & Plan (02/12/2021 11:23 AM CDT): - encouraged pt to f/u with new GI - continue hyoscyamine Assessment & Plan (01/01/2021 12:10 PM CDT): - continue prn oxycodone for now - discussed need to wean off of this as this is not a viable keno terminal operator solution - will ref to pain [...] medication Assessment & Plan (07/15/2019 11:36 AM FURNITURE CRATER): - controlled - continue current plan Chronic [...] drink = 0.6 oz pur e alcohol) [facility] Utilities Answer Date Recorded In the [...] often do you attend chur ch or sikhism services? Never 08/11/2024 Do you belong to [...] place to sleep or slept in a nursing home (including now)? No 09/21/2023 PHQ-9 Answer Date [...] any time in the past 12 m [facility], were you homeless or living in a nursing home (including now)? No 08/11/2024 Personal Safety Answer Date Recorded Have you ever been in or are you currently in a harmful physical or emotional relationship or is someone making you feel afraid or unsafe? Denies 11/25/2024 Sex and Gender Information Value Date Recorded Sex Assigned at Not on file Legal Sex Male 3:38 AM FURNITURE CRATER Gender Identity Not on file Sexual Orientation [...] on file Medical Devices Explanted Type Area Classification Control Clerk Device Identifier Shelf Expiration Date Model / Serial / Lot [employer] 6572 Connell Flexi-Stent 7fr 5cm Small Pigtail Flexible .035in Stent - [id number] Implanted:Qty: 1 on 09/18/2018 by Vimal Woodruff MD at [facility] Explanted:Qty: 1 on 09/20/2018 at [facility] Stent N/A: Pancreas [employer] 06/10/2023 [id number] / / [id number] Conmed Gina [id number] Sunspot Viabil 10mm 8.5fr 6cm 200cm Fully Covered Self Expand Pull - [id number] - [id number] Implanted:Qty: 1 on 09/18/2018 by Vimal Woodruff MD at [facility] Explanted:Qty: 1 on 09/20/2018 at [facility] Stent N/A: Bile Duct Conmed Gina 06/29/2021 [id number] / [id number] / [employer] Connell Flexi-Stent 7fr 9cm Small Pigtail Flexible .035in Stent [id number] - [id number] Implanted:Qty: 1 on 02/07/2022 by Vimal Woodruff MD at [facility] Explanted:Qty: 1 on 02/10/2022 by Vimal Woodruff MD at [facility] Stent N/A: Pancreas [employer] 09/07/2026 [id number] / / [id number] [employer] Gina Wallflex 10mm X 60mm Fully Covered Biliary [id number] - [id number] Implanted:Qty: 1 on 02/07/2022 by Vimal Woodruff MD at [facility] Explanted:Qty: 1 on 02/10/2022 by Vimal Woodruff MD at [facility] Stent N/A: Bile Duct [employer] Gina 11/04/2023 [id number] / / [id number] [employer] Connell Flexi-Stent 7fr 9cm Small Pigtail Flexible .035in Stent 6575 - [id number] Implanted:Qty: 1 on 09/21/2023 by Vimal Woodruff MD at [facility] Explanted:Qty: 1 on 09/23/2023 by Vimal Woodruff MD at [facility] Stent N/A: Pancreas [employer] 03/11/2028 [id number] / / [id number] Description:Not present at b eginning of case. Self migrated out [employer] Gina Wallflex 10mm X 60mm Fully Covered Biliary [id number] - [id number] Implanted:Qty: 1 on 09/21/2023 by Vimal Woodruff MD at [facility] Explanted:Qty: 1 on 09/23/2023 by Vimal Woodruff MD at [facility] Stent N/A: Bile Duct [employer] Gina 08/02/2025 [id number] / / [id number] Procedures Procedure Name Priority Date/Time Associated Diagnosis [...] clear. Heart size normal. No effusion. LIVER/BILIARY: Lzpo-lt-slzymxxv steatosis. Unchanged pneumobilia. GALLBLADDER: Absent. SPLEEN: Normal. [...] Aryan Jovel M.D. AR: GIOVANNA Report ID: [id number] Reading Location: [id number] Procedure Note Aryan Jovel MD - 11/26/2024 [...] clear. Heart size normal. No effusion. LIVER/BILIARY: Iqid-be-xnwfzuvx steatosis. Unchanged pneumobilia. GALLBLADDER: Absent. SPLEEN: Normal. [...] Aryan Jovel M.D. AR: GIOVANNA Report ID: [id number] Reading Location: [place] [address] Bluemiguel a Warren MD IMG CT PROCEDURES F inal Result * Troponin T high-sensitivity 2-hour (11/26/2024 1:13 AM CDT) Trop T hs 8 <=22 ng/L Comment: Interpretive Data For further hscTnT resources including the diagnostic algorithm and an aid in interpretation, copy and paste this link: https://nrl.testcatalog.org/show/hsTrop Current Interpretive Data last revised 2020. Testing performed by: [address] [address] Trop T hs delta -3 ng/L NEEL SMITH Comment:Testing performed by : [address] [address] Trop T hs interp Insignificant NEEL SMITH Comment:Testing performed by : [address] [address] Blood 11/26/2024 1:13 AM CDT 11/26/2024 1:25 AM CDT us Blue Warren MD LAB BLOOD ORDERABLE S Final Result NEEL SARAH [address] [facility] Department [place] [address] * Urinalysis reflex to microscopic and culture Urine (11/25/2024 11:13 PM CDT) Color, ur Yellow Yellow Comment:Testing performed by : [address] [address] Clarity, ur Clear Clear NEEL Comment:Testing performed by : [address] [address] Specific gravity, ur 1.020 1.003 - 1.030 NEEL Comment:Testing performed by : [address] [address] pH, urine 6.0 NEEL Comment: Interpretive Data U rine pH is affected by diet, medications, systemic acid-base disturbances, and renal tubular function. pH may affect urinary stone formation. For example, urine pH below 6.0 may help reduce the tendency for calcium phosphate stones and pH greater than 6.0 may reduce the tendency for uric acid stone formation. Source: [facility] [employer] Current Interpretive Data was last revised on 2017 Testing performed by: [address] [address] Protein, ur ql Negative Negative NEEL SMITH Comment:Testing performed by : [address] [address] Glucose, ur ql Negative Negative NEEL SMITH Comment:Testing performed by : [address] [address] Ketones, ur Negative Negative NEEL SMITH Comment:Testing performed by : [address] [address] Bilirubin, ur Negative Negative NEEL SMITH Comment:Testing performed by : [address] [address] Blood, ur Negative Negative NEEL SMITH Comment:Testing performed by : [address] [address] Urobilinogen, ur <2.0 <2.0 mg/dL NEEL Comment:Testing performed by : [address] [address] Nitrite, ur Negative Negative NEEL Comment:Testing performed by : [address] [address] Leukocyte esterase, ur Negative Negative NEEL Comment:Testing performed by : [address] [address] UA reflex comment Reflex conditions for microscopic UA and culture not met. NEEL Comment:Testing performed by : [facility], [address] [place] [address]., [address] Urine 11/25/2024 11:1 3 PM CDT 11/25/2024 11:24 PM CDT Blue Warren MD LAB MICROBIOLOGY - GENERAL ORDERABLES Final Result Performing Organization Address City/[facility] Co de Phone Number NEEL [facility] [place] [address] * Troponin T high-sensitivity series (baseline, 2hr, 4hr, 6hr) (11/25/2024 11:06 PM CDT) Trop T hs 11 <=22 ng/L Comment: Interpretive Data For further hscTnT resources including the diagnostic algorithm and an aid in interpretation, copy and paste this link: https://nrl.testcatalog.org/show/hsTrop Current Interpretive Data last revised 2020. Testing performed by: [address] [address] Blood 11/25/2024 11:0 6 PM CDT 11/25/2024 11:24 PM CDT Blue Warren MD LAB BLOOD ORDERABLE S Final Result Performing Organization Address City/[facility]/ZIP Co de Phone Number QUINT[address] [place] [address] * eGFR (11/25/2024 11:06 PM CDT) eGFR [...] last reviewed 2021. Testing performed by: [address] [address] Blood 11/25/2024 11:0 6 PM CDT 11/25/2024 11:24 PM CDT us Blue Warren MD LAB BLOOD ORDERABLE S Final Result [facility] [address] [facility] Department [place] [address] * (ABNORMAL) Differential, auto (11/25/2024 11:06 PM CDT) Neutrophil abs 13.59(H) 1.50 - 6.50 K/cumm Comment:Testing performed by : [address] [address] Imm gran abs 0.11(H) 0.00 - 0.10 K/cumm NEEL SMITH Comment:Testing performed by : [address] [address] Lymphocyte abs 1.24 0.80 - 3.30 K/cumm NEEL Comment:Testing performed by : [address], [place]., [address] Monocyte abs 0.90(H) 0.20 - 0.80 K/cumm NEEL Comment:Testing performed by : [address], [place]., [address] Eosinophil abs 0.02 0.00 - 0.50 K/cumm NEEL Comment:Testing performed by : [address], [place]., [address] Basophil abs 0.05 0.00 - 0.10 K/cumm [facility] Comment:Testing performed by : [address] [address] Neutrophil pct 85.4 % NEEL Comment: Interpretive Data Percent cell count reference ranges are not reported, since discordance with absolute values may lead to misinterpretation of CBC data. Current Interpretive Data was last revised on 2017. Testing performed by: [address] [address] Imm gran pct 0.7 % [facility] Comment: Interpretive Data Percent cell count reference ranges are not reported, since discordance with absolute values may lead to misinterpretation of CBC data. Current Interpretive Data was last revised on 2017. Testing performed by: [address] [address] Lymphocyte pct 7.8 % [facility] Comment: Interpretive Data Percent cell count reference ranges are not reported, since discordance with absolute values may lead to misinterpretation of CBC data. Current Interpretive Data was last revised on 2017. Testing performed by: [address] [address] Monocyte pct 5.7 % [facility] Comment: Interpretive Data Percent cell count reference ranges are not reported, since discordance with absolute values may lead to misinterpretation of CBC data. Current Interpretive Data was last revised on 2017. Testing performed by: [address] [address] Eosinophil pct 0.1 % [facility] Comment: Interpretive Data Percent cell count reference ranges are not reported, since discordance with absolute values may lead to misinterpretation of CBC data. Current Interpretive Data was last revised on 2017. Testing performed by: [address] [address] Basophil pct 0.3 % NEEL SMITH Comment: Interpretive Data Percent cell count reference ranges are not reported, since discordance with absolute values may lead to misinterpretation of CBC data. Current Interpretive Data was last revised on 2017. Testing performed by: [address] [address] Blood 11/25/2024 11:0 6 PM CDT 11/25/2024 11:24 PM CDT us Blue Warren MD LAB BLOOD ORDERABLE S Final Result NEEL [facility] Department [place] [address] * (ABNORMAL) CBC with auto differential (11/25/2024 11:06 PM CDT) WBC 15.91(H) 3.80 - 9.90 K/cumm Comment:Testing performed by : [address] [address] Hgb 15.1 13.0 - 17.5 g/dL NEEL SMITH Comment:Testing performed by : [address] [address] Hct 44.2 38.9 - 50.3 % NEEL SMITH Comment:Testing performed by : [address] [address] Plt 300 150 - 400 K/cumm NEEL SMITH Comment:Testing performed by : [address] [address] MPV 9.7 9.1 - 12.3 fL NEEL SMITH Comment:Testing performed by : [address] [address] RBC 5.26 4.30 - 5.80 M/cumm NEEL SMITH Comment:Testing performed by : [address] [address] MCV 84.0 81.3 - 96.4 fL NEEL SMITH Comment:Testing performed by : [address] [address] MCH 28.7 27.1 - 33.3 pg NEEL SMITH Comment:Testing performed by : [address] [address] MCHC 34.2 32.3 - 35.7 g/dL NEEL SMITH Comment:Testing performed by : [address], [address] RDW CV 15.2(H) 11.1 - 14.9 % NEEL Comment:Testing performed by : [address], [address] RDW SD 46.3 35.7 - 48.1 fL NEEL SMITH Comment:Testing performed by : [address] [address] NRBC abs 0.00 0.00 - 0.01 K/cumm NEEL Comment:Testing performed by : [address], [address] Blood Venous blood specimen / Unknown 11/25/2024 11:06 PM CDT 11/25/2024 11:24 PM CDT us Blue Warren MD LAB BLOOD ORDERABLE S Final Result Performing Organization Address [facility] Phone Number NEEL [facility]1 [facility] Department of Laboratories [place], [place] [id number] * Lipase (11/25/2024 11:06 PM CDT) Lipase 24 10 - 99 Units/L Comment:Testing performed by : [address] [address] Blood Venous blood specimen / Unknown 11/25/2024 11:06 PM CDT 11/25/2024 11:24 PM CDT Blue Warren MD LAB BLOOD ORDERABLE S Final Result NEEL [address] [facility] Department [place] [address] * (ABNORMAL) Comprehensive metabolic panel (11/25/2024 11:06 PM CDT) Sodium 140 135 - 145 mmol/L Comment:Testing performed by : [address] [address] Potassium, pl 4.1 3.3 - 4.9 mmol/L NEEL Comment:Testing performed by : [address], [place]., [address] Chloride 102 97 - 110 mmol/L NEEL Comment:Testing performed by : [address] [address] CO2 24 22 - 32 mmol/L NEEL Comment:Testing performed by : [address], [place]., [address] Anion gap 14 2 - 15 mmol/L NEEL Comment:Testing performed by : [address] [address] BUN 10 6 - 25 mg/dL NEEL Comment:Testing performed by : [address], [place]., [address] Creatinine 1.01 0.80 - 1.30 mg/dL NEEL Comment:Testing performed by : [address] [address] Glucose 115 70 - 199 mg/dL NEEL [...] was last revised 2022. Testing performed by: [address], [place]., [address] Calcium 10.5(H) 8.5 - 10.3 mg/dL NEEL Comment:Testing performed by : [address] [address] Bilirubin, total 0.4 0.1 - 1.2 mg/dL NEEL Comment:Testing performed by : [address] [address] Protein, pl 7.4 6.5 - 8.5 g/dL NEEL Comment:Testing performed by : [address] [address] Albumin 4.5 3.5 - 5.0 g/dL NEEL Comment:Testing performed by : [address] [address] Alk phos 89 40 - 130 Units/L NEEL Comment:Testing performed by : [address] [address] ALT 19 7 - 55 Units/L NEEL Comment:Testing performed by : [address] [address] AST 21 10 - 50 Units/L NEEL Comment:Testing performed by : [address] [address] Blood 11/25/2024 11:0 6 PM CDT 11/25/2024 11:24 PM CDT us Blue Warren MD LAB BLOOD ORDERABLE S Final Result Performing Organization Address City/State/[facility] Co de Phone Number NEEL [address] [facility] Department [place] [address] * ECG 12 lead (11/25/2024 11:02 PM CDT) Pathologist [facility] Emergency Department Ventricular Rate EKG/Min 74 BPM [facility] Atrial Rate 74 BPM [facility] ID-Interval (MSEC) 80 ms [facility] QRS-Interval (MSEC) 96 ms [facility] QT-Interval (MSEC) 354 ms [facility] QTc 392 ms [facility] P Scroggins -18 degrees [facility] R Scroggins 32 degrees [facility] T Scroggins 56 degrees [facility] Diagnosis Sinus rhythm with sinus arrhythmia with short ID Otherwise normal ECG When compared with ECG of 13-OCT-2024 03:54, No significant change was found Confirmed by DARIEL CARLOS M.D. ([id number]) on 11/26/2024 10:02:21 PM [facility] [employer] 11/25/2024 11:0 2 PM CDT 11/26/2024 10:02 PM CDT us Blue Warren MD ECG ORDERABLES Fin al Result [facility] [employer] [facility] * CT Abdomen Pelvis W Contrast [...] tendency for uric acid stone formation. Source: [employer] Current Interpretive Data was last revised on [...] GENERAL ORDERABLES Final Result Performing Organization Address [facility]/ZIP Co de Phone Number [facility] [address] [place] [address] * eGFR (10/18/2024 12:48 PM [...] ORDERABLES Final R esult Performing Organization Address City/[facility]/ZIP Co de Phone Number [facility] [address] [place] [address] * (ABNORMAL) Differential, auto (10/18/2024 12:48 PM [...] BLOOD ORDERABLES Final Result Performing Organization Address City/[facility]/ZIP Co de Phone Number [facility] [address] Department [place] [employer] [place] [address] * (ABNORMAL) CBC with auto differential (10/18/2024 12:48 PM CDT) Pathologist [facility] Emergency Department WBC 15.37(H) 3.80 - 9.90 K/cumm Hgb [...] Burns MD LAB BLOOD ORDERABLES Final Result [facility] [address] Department [place] [address] * Lipase (10/18/2024 12:48 PM CDT) Pathologist [facility] Emergency Department Lipase 36 10 - 99 Units/L Blood Venous blood specimen / Unknown 10/18/2024 12:48 PM CDT 10/18/2024 1:27 PM CDT Oswaldo Burns MD LAB BLOOD ORDERABLES Final Result [facility] [address] [place] Department [place] [address] * (ABNORMAL) Comprehensive metabolic panel (10/18/2024 12:48 [...] BLOOD ORDERABLES Final Result Performing Organization Address City/[facility]/ZIP Co de Phone Number [facility] [address] [facility] [place] [address] * Lipase - Add on lab test (10/14/2024 4:29 AM CDT) Acceptable Yes Blood 10/14/2024 4:29 AM CDT 10/14/2024 4:29 AM CDT Narrative [facility] - 10/14/2024 4:30 AM CDT Name of Test->Lipase Yusef Bear MD LAB BLOOD ORDERABLES Final Result Performing Organization Address [facility] Co de Phone Number [facility] [address] [facility] [place] [address] * CT Abdomen Pelvis W Contrast (10/14/2024 1:38 AM CDT) Anatomical Region Laterality Modality Body N/A Computed Tomogra phy 10/14/2024 1:29 AM CDT Impressions 10/14/2024 9:11 AM CDT No acute abnormality in the abdomen or pelvis. No pancreatitis. For the purposes of quality control operator, this study was initially interpreted by teleradiology. [...] No pancreatitis. For the purposes of quality control operator, this study was initially interpreted by teleradiology. [...] tendency for uric acid stone formation. Source: [facility] Current Interpretive Data was last revised on [...] [address] Department [place] [address] * eGFR (10/13/2024 10:06 PM CDT) [...] R esult [facility] [address] [place] [address] * (ABNORMAL) Differential, auto (10/13/2024 10:06 PM [...] CENTER [address] Department of Laboratories [place], [place] [id number] * (ABNORMAL) CBC with auto differential (10/13/2024 [...] ORDERABLES Final R esult [facility] [address] [place], [place] [id number] * (ABNORMAL) Lipase (10/13/2024 10:06 PM CDT) [facility] Lipase 119(H) 10 - 99 Units/L Blood 10/13/2024 10:0 6 PM CDT 10/13/2024 10:43 PM CDT Abdiel Donaldson MD LAB BLOOD ORDERABLES Final R esult Performing Organization Address City/[facility]/ZIP Co de Phone Number [facility] [address] Department [place] [address] * (ABNORMAL) Comprehensive metabolic panel (10/13/2024 10:06 PM CDT) [facility] Sodium 144 135 - 145 mmol/L Potassium, [...] CENTER [address] [place] [address] * ECG 12 lead (10/13/2024 9:51 PM CDT) 10/13/2024 9:51 PM CDT Narrative [facility] - 10/14/2024 9:31 AM CDT Vent Rate: 68 bpm RR Interval: 880 msec ID Interval: 129 msec QRS Duration: 113 msec QT Interval: 357 msec QTC Interval: 374 msec P-R-T Scroggins: 26 - 53 - 61 degrees IMPRESSION: SINUS RHYTHM WITH A BORDERLINE SHORT ID INTERVAL WITH MARKED SINUS ARRHYTHMIA INCOMPLETE RIGHT BUNDLE-BRANCH BLOCK BORDERLINE ECG Electronically Signed By: Calvin aponte Jose Francisco Jessica MD ECG ORDERABLES Final Resu lt [facility] * (ABNORMAL) Differential, auto (10/13/2024 7:40 AM CDT) Neutrophil abs 12.72(H) 1.50 - 6.50 K/cumm Imm gran abs 0.06 0.00 - 0.10 K/cumm [facility] Lymphocyte abs 0.98 0.80 - 3.30 K/cumm [facility] Monocyte abs 0.59 0.20 - 0.80 K/cumm [facility] Eosinophil abs 0.01 0.00 - 0.50 K/cumm [facility] Basophil abs 0.04 0.00 - 0.10 K/cumm [facility] Neutrophil pct 88.3 % [facility] Comment: Interpretive Data Percent cell count reference ranges are not reported, since discordance with absolute values may lead to misinterpretation of CBC data. Current Interpretive Data was last revised on 2017. Imm gran pct 0.4 % [facility] Comment: Interpretive Data Percent cell count reference ranges are not reported, since discordance with absolute values may lead to misinterpretation of CBC data. Current Interpretive Data was last revised on 2017. Lymphocyte pct 6.8 % [facility] Comment: Interpretive Data Percent cell count reference ranges are not reported, since discordance with absolute values may lead to misinterpretation of CBC data. Current Interpretive Data was last revised on 2017. Monocyte pct 4.1 % [facility] Comment: Interpretive Data Percent cell count reference ranges are not reported, since discordance with absolute values may lead to misinterpretation of CBC data. Current Interpretive Data was last revised on 2017. Eosinophil pct 0.1 % [facility] Comment: Interpretive Data Percent cell count reference ranges are not reported, since discordance with absolute values may lead to misinterpretation of CBC data. Current Interpretive Data was last revised on 2017. Basophil pct 0.3 % [facility] Comment: Interpretive Data Percent cell count reference ranges are not reported, since discordance with absolute values may lead to misinterpretation of CBC data. Current Interpretive Data was last revised on 2017. Blood 10/13/2024 7:40 AM CDT 10/13/2024 7:42 AM CDT Rodney Mejia MD LAB BLOOD ORDERABLES Fi nal Result Performing Organization Address [facility] de Phone Number [facility] [address] [place] [address] * (ABNORMAL) CBC with auto differential (10/13/2024 7:40 AM CDT) Pathologist [facility] WBC 14.40(H) 3.80 - 9.90 K/cumm Hgb 13.1 13.0 - 17.5 g/dL [facility] Hct 40.8 38.9 - 50.3 % [facility] Plt 242 150 - 400 K/cumm [facility] MPV 9.9 9.1 - 12.3 fL [facility] RBC 4.61 4.30 - 5.80 M/cumm [facility] MCV 88.5 81.3 - 96.4 fL [facility] MCH 28.4 27.1 - 33.3 pg [facility] MCHC 32.1(L) 32.3 - 35.7 g/dL [facility] RDW CV 15.4(H) 11.1 - 14.9 % [facility] RDW SD 49.5(H) 35.7 - 48.1 fL [facility] NRBC abs 0.00 0.00 - 0.01 K/cumm [facility] Blood 10/13/2024 7:40 AM CDT 10/13/2024 7:42 AM CDT Narrative [facility] - 10/13/2024 7:45 AM CDT For after fluids Rodney Mejia MD LAB BLOOD ORDERABLES Fi nal Result Performing Organization Address [facility] Co de Phone Number [address] [place] [address] * Sepsis Lactate w/ Reflex (10/13/2024 4:57 AM CDT) Sepsis Lactate 1.1 0.7 - 2.0 mmol/L Blood 10/13/2024 4:57 AM CDT 10/13/2024 4:59 AM CDT Rodney Mejia MD LAB BLOOD ORDERABLES Fi nal Result [facility] [address] [facility] Department [place] [address] * (ABNORMAL) Drugs of Abuse Screen, Urine [...] 2022. Barbiturates, ur Not Detected CutOff 200ng/mL [facility] Comment: Interpretive Data - Barbiturates: Samples containing greater than 200 ng/mL secobarbital or other cross-reacting barbiturate compounds are reported as positive. False positive and false negative results are possible. Confirmatory testing required for definitive results. Current Interpretive Data was last reviewed 2022. Benzodiazepines, ur Not Detected CutOff 100ng/mL [facility] Comment: Interpretive Data - Benzodiazepines: Samples containing greater than 100 ng/mL nordiazepam or other cross-reacting compounds are reported as positive. False positive and false negative results are possible. Confirmatory testing required for definitive results. Current Interpretive Data was last reviewed 2022. Cannabinoids, ur Screen Positive, presumptive (A) CutOff 50 ng/mL [facility] Comment: Interpretive Data - Cannabinoids: Samples containing greater than 50 ng/mL delta-9 THC -COOH or other cross- reacting compounds are reported as positive. False positive and false negative results are possible. Confirmatory testing required for definitive results. Current Interpretive Data was last reviewed 2022. Cocaine, ur Not Detected CutOff 150ng/mL [facility] Comment: Interpretive Data - Cocaine: [...] 2022. Opiates, ur Not Detected CutOff 300ng/mL [facility] Comment: Interpretive Data - Opiates: Samples containing greater than 300 ng/mL morphine or other cross-reacting compounds are reported as positive. False positive and false negative results are possible. Confirmatory testing required for definitive results. Current Interpretive Data was last reviewed 2022. Oxycodone, ur Not Detected CutOff 100ng/mL [facility] Comment: Interpretive Data - Oxycodone: Samples containing greater than 100 ng/mL oxycodone or other cross-reacting compounds are reported as positive. False positive and false negative results are possible. Confirmatory testing required for definitive results. Current Interpretive Data was last reviewed 2022. Phencyclidine, ur Not Detected CutOff 25 ng/mL [facility] Comment: Interpretive Data - Phencyclidine: Samples containing [...] Fentanyl, Methadone, Opiates, Oxycodone or Phencyclidine. Result [facility] Rodney Mejia MD LAB URINE ORDERABLES Fi nal Result Performing Organization Address [facility] de Phone Number [address] [place] [address] * Troponin T high-sensitivity series (baseline, 2hr, [...] ORDERABLES Fi nal Result Performing Organization Address [facility] de Phone Number [address] [place] [address] * eGFR (10/13/2024 4:08 AM CDT) eGFR [...] Mejia MD LAB BLOOD ORDERABLES nal Result [place] [address] [facility] Department [place] [address] * (ABNORMAL) Differential, auto (10/13/2024 4:08 AM CDT) Pathologist [facility] Neutrophil abs 12.87(H) 1.50 - 6.50 K/cumm Imm gran abs 0.09 0.00 - 0.10 K/cumm [facility] Lymphocyte abs 2.58 0.80 - 3.30 K/cumm [facility] Monocyte abs 1.61(H) 0.20 - 0.80 K/cumm [facility] Eosinophil abs 0.19 0.00 - 0.50 K/cumm [facility] Basophil abs 0.07 0.00 - 0.10 K/cumm [facility] Neutrophil pct 74.0 % [facility] Comment: Interpretive Data Percent cell count reference ranges are not reported, since discordance with absolute values may lead to misinterpretation of CBC data. Current Interpretive Data was last revised on 2017. Imm gran pct 0.5 % [facility] Comment: Interpretive Data Percent cell count reference ranges are not reported, since discordance with absolute values may lead to misinterpretation of CBC data. Current Interpretive Data was last revised on 2017. Lymphocyte pct 14.8 % [facility] Comment: Interpretive Data Percent cell count reference ranges are not reported, since discordance with absolute values may lead to misinterpretation of CBC data. Current Interpretive Data was last revised on 2017. Monocyte pct 9.2 % [facility] Comment: Interpretive Data Percent cell count reference ranges are not reported, since discordance with absolute values may lead to misinterpretation of CBC data. Current Interpretive Data was last revised on 2017. Eosinophil pct 1.1 % [facility] Comment: Interpretive Data Percent cell count reference ranges are not reported, since discordance with absolute values may lead to misinterpretation of CBC data. Current Interpretive Data was last revised on 2017. Basophil pct 0.4 % [facility] Comment: Interpretive Data Percent cell count reference ranges are not reported, since discordance with absolute values may lead to misinterpretation of CBC data. Current Interpretive Data was last revised on 2017. Blood 10/13/2024 4:08 AM CDT 10/13/2024 4:16 AM CDT Rodney Mejia MD LAB BLOOD ORDERABLES Fi nal Result [facility] [address] [facility] Department [place] [address] * (ABNORMAL) Urinalysis reflex to microscopic and culture Urine (10/13/2024 4:08 AM CDT) Color, ur Yellow Yellow Clarity, ur Cloudy(A) Clear [facility] Specific gravity, ur 1.013 1.003 - 1.030 [facility] pH, urine 7.5 [facility] Comment: Interpretive Data U rine pH is affected by diet, medications, systemic acid-base disturbances, and renal tubular function. pH may affect urinary stone formation. For example, urine pH below 6.0 may help reduce the tendency for calcium phosphate stones and pH greater than 6.0 may reduce the tendency for uric acid stone formation. Source: [facility] Current Interpretive Data was last revised on 2017 Protein, ur ql Negative Negative [facility] Glucose, ur ql Negative Negative [facility] Ketones, ur Negative Negative [facility] Bilirubin, ur Negative Negative [facility] Blood, ur Negative Negative [facility] Urobilinogen, ur <2.0 <2.0 mg/dL [facility] Nitrite, ur Negative Negative [facility] Leukocyte esterase, ur Negative Negative [facility] UA reflex comment Reflex conditions for microscopic UA and culture not met. [facility] Urine 10/13/2024 4:08 AM CDT 10/13/2024 4:16 AM CDT Rodney Mejia MD LAB MICROBIOLOGY - GENE RAL ORDERABLES Final Result Performing Organization Address City/[facility] Co de Phone Number NEEL [address] [place] [address] * (ABNORMAL) CBC with auto differential (10/13/2024 4:08 AM CDT) WBC 17.41(H) 3.80 - 9.90 K/cumm Hgb 13.8 13.0 - 17.5 g/dL [facility] Hct 41.2 38.9 - 50.3 % [facility] Plt 291 150 - 400 K/cumm [facility] MPV 9.9 9.1 - 12.3 fL [facility] RBC 4.87 4.30 - 5.80 M/cumm [facility] MCV 84.6 81.3 - 96.4 fL [facility] MCH 28.3 27.1 - 33.3 pg [facility] MCHC 33.5 32.3 - 35.7 g/dL [facility] RDW CV 15.4(H) 11.1 - 14.9 % [facility] RDW SD 46.5 35.7 - 48.1 fL [facility] NRBC abs 0.00 0.00 - 0.01 K/cumm [facility] Blood Venous blood specimen / Unknown 10/13/2024 4:08 AM CDT 10/13/2024 4:16 AM CDT Rodney Mejia MD LAB BLOOD ORDERABLES Fi nal Result Performing Organization Address City/[facility]/ZIP Co de Phone Number NEEL [address] [place] [address] * (ABNORMAL) Lipase (10/13/2024 4:08 AM CDT) Lipase 270(H) 10 - 99 Units/L Blood Venous blood specimen / Unknown 10/13/2024 4:08 AM CDT 10/13/2024 4:16 AM CDT Rodney Mejia MD LAB BLOOD ORDERABLES Fi nal Result [facility] [address] [facility] Department [place] [address] * Comprehensive metabolic panel (10/13/2024 4:08 AM CDT) Pathologist [facility] Sodium 141 135 - 145 mmol/L Potassium, pl 3.8 3.3 - 4.9 mmol/L [facility] Chloride 104 97 - 110 mmol/L [facility] CO2 22 22 - 32 mmol/L [facility] Anion gap 15 2 - 15 mmol/L [facility] BUN 12 6 - 25 mg/dL [facility] Creatinine 1.13 0.80 - 1.30 mg/dL [facility] Glucose 110 70 - 199 mg/dL [facility] Comment: Interpretive Data Fasting glucose [...] 2022. Calcium 9.2 8.5 - 10.3 mg/dL [facility] Bilirubin, total 0.3 0.1 - 1.2 mg/dL [facility] Protein, pl 6.8 6.5 - 8.5 g/dL [facility] Albumin 4.2 3.5 - 5.0 g/dL [facility] Alk phos 77 40 - 130 Units/L [facility] ALT 15 7 - 55 Units/L [facility] AST 19 10 - 50 Units/L [facility] Blood 10/13/2024 4:08 AM CDT 10/13/2024 4:16 AM CDT Rodney Mejia MD LAB BLOOD ORDERABLES Fi nal Result Performing Organization Address [facility]/ZIP Co de Phone Number NEEL [address] [facility] Department [place] [address] * ECG 12 lead (10/13/2024 3:54 AM CDT) Ventricular Rate EKG/Min 66 BPM [facility] Atrial Rate 66 BPM [facility] ID-Interval (MSEC) 86 ms [facility] QRS-Interval (MSEC) 100 ms [facility] QT-Interval (MSEC) 376 ms [facility] QTc 394 ms [facility] P Scroggins 3 degrees [facility] R Scroggins 45 degrees [facility] T Scroggins 52 degrees [facility] Diagnosis Sinus rhythm with short ID Incomplete right bundle branch block Confirmed by HOLLAND MELGAR M.D. ([facility]) on 10/13/2024 9:29:09 AM [facility] 10/13/2024 3:54 AM CDT 10/13/2024 9:29 AM CDT Rodney Mejia MD ECG ORDERABLES Final R esult Performing Organization Address [facility] de Phone Number [facility] * eGFR (10/08/2024 7:25 PM CDT) [...] reviewed 2021. Testing performed by: [facility], [address] [place] [address]., [address] Blood 10/08/2024 7:25 PM CDT 10/08/2024 7:29 PM CDT us Lilliana [facility] LAB BLOOD ORDERABLES Final Result NEEL [facility] Department [place] [address] * (ABNORMAL) Differential, auto (10/08/2024 7:25 PM CDT) Neutrophil abs 5.02 1.50 - 6.50 K/cumm Comment:Testing performed by : [address] [address] Imm gran abs 0.04 0.00 - 0.10 K/cumm NEEL Comment:Testing performed by : [address] [address] Lymphocyte abs 3.13 0.80 - 3.30 K/cumm NEEL Comment:Testing performed by : [address] [address] Monocyte abs 1.11(H) 0.20 - 0.80 K/cumm NEEL Comment:Testing performed by : [address] [address] Eosinophil abs 0.10 0.00 - 0.50 K/cumm NEEL Comment:Testing performed by : [address] [address] Basophil abs 0.06 0.00 - 0.10 K/cumm NEEL Comment:Testing performed by : [address] [address] Neutrophil pct 53.1 % [facility] Comment: Interpretive Data Percent cell count reference ranges are not reported, since discordance with absolute values may lead to misinterpretation of CBC data. Current Interpretive Data was last revised on 2017. Testing performed by: [address] [address] Imm gran pct 0.4 % [facility] Comment: Interpretive Data Percent cell count reference ranges are not reported, since discordance with absolute values may lead to misinterpretation of CBC data. Current Interpretive Data was last revised on 2017. Testing performed by: [address] [address] Lymphocyte pct 33.1 % [facility] Comment: Interpretive Data Percent cell count reference ranges are not reported, since discordance with absolute values may lead to misinterpretation of CBC data. Current Interpretive Data was last revised on 2017. Testing performed by: [address] [address] Monocyte pct 11.7 % [facility] Comment: Interpretive Data Percent cell count reference ranges are not reported, since discordance with absolute values may lead to misinterpretation of CBC data. Current Interpretive Data was last revised on 2017. Testing performed by: [address] [address] Eosinophil pct 1.1 % [facility] Comment: Interpretive Data Percent cell count reference ranges are not reported, since discordance with absolute values may lead to misinterpretation of CBC data. Current Interpretive Data was last revised on 2017. Testing performed by: [address] [address] Basophil pct 0.6 % [facility] Comment: Interpretive Data Percent cell count reference ranges are not reported, since discordance with absolute values may lead to misinterpretation of CBC data. Current Interpretive Data was last revised on 2017. Testing performed by: [address] [address] Blood 10/08/2024 7:25 PM CDT 10/08/2024 7:29 PM CDT Lilliana [facility] LAB BLOOD ORDERABLES Final Result [facility] [address] [facility] Department [place] [address] * (ABNORMAL) CBC with auto differential (10/08/2024 7:25 PM CDT) [facility] Signature WBC 9.46 3.80 - 9.90 K/cumm Comment:Testing performed by : [address] [address] Hgb 15.0 13.0 - 17.5 g/dL NEEL Comment:Testing performed by : [address] [address] Hct 44.6 38.9 - 50.3 % NEEL Comment:Testing performed by : [address] [address] Plt 321 150 - 400 K/cumm NEEL Comment:Testing performed by : [address] [address] MPV 10.0 9.1 - 12.3 fL NEEL Comment:Testing performed by : [address] [address] RBC 5.38 4.30 - 5.80 M/cumm NEEL Comment:Testing performed by : [address] [address] MCV 82.9 81.3 - 96.4 fL NEEL Comment:Testing performed by : [address] [address] MCH 27.9 27.1 - 33.3 pg NEEL Comment:Testing performed by : [address] [address] MCHC 33.6 32.3 - 35.7 g/dL NEEL Comment:Testing performed by : [address] [address] RDW CV 15.5(H) 11.1 - 14.9 % NEEL Comment:Testing performed by : [address] [address] RDW SD 46.7 35.7 - 48.1 fL NEEL MSITH Comment:Testing performed by : [address] [address] NRBC abs 0.00 0.00 - 0.01 K/cumm NEEL SMITH Comment:Testing performed by : [address] [address] Blood Venous blood specimen / Unknown 10/08/2024 7:25 PM CDT 10/08/2024 7:29 PM CDT Lilliana [facility] LAB BLOOD ORDERABLES Final Result Performing Organization Address City/[facility]/ZIP Co de Phone Number [address] [place] [address] * Lipase (10/08/2024 7:25 PM CDT) [facility] Lipase 42 10 - 99 Units/L Comment:Testing performed by : [address] [address] Blood Venous blood specimen / Unknown 10/08/2024 7:25 PM CDT 10/08/2024 7:29 PM CDT [facility] LAB BLOOD ORDERABLES Final Result Performing Organization Address [facility]/ZIP Co de Phone Number [address] [address] * Comprehensive metabolic panel (10/08/2024 7:25 PM CDT) Pathologist [facility] Sodium 141 135 - 145 mmol/L Comment:Testing performed by : [address] [address] Potassium, pl 4.3 3.3 - 4.9 mmol/L NEEL SMITH Comment: Hemolyzed; Potassium value may be falsely elevated by as much as 1.0 mmol/L. Suggest redraw and reanalysis. Testing performed by: [address] [address] Chloride 105 97 - 110 mmol/L NEEL SMITH Comment:Testing performed by : [address] [address] CO2 22 22 - 32 mmol/L NEEL Comment:Testing performed by : [address] [address] Anion gap 14 2 - 15 mmol/L NEEL Comment:Testing performed by : [address], [place]., [address] BUN 7 6 - 25 mg/dL NEEL Comment:Testing performed by : [address], [place]., [address] Creatinine 1.02 0.80 - 1.30 mg/dL NEEL Comment:Testing performed by : [address] [address] Glucose 104 70 - 199 mg/dL NEEL [...] last revised 2022. Testing performed by: [address] [address] Calcium 10.1 8.5 - 10.3 mg/dL NEEL Comment:Testing performed by : [address] [address] Bilirubin, total 0.3 0.1 - 1.2 mg/dL NEEL Comment:Testing performed by : [address] [address] Protein, pl 7.7 6.5 - 8.5 g/dL NEEL Comment:Testing performed by : [address] [address] Albumin 4.8 3.5 - 5.0 g/dL NEEL Comment:Testing performed by : [address] [address] Alk phos 88 40 - 130 Units/L NEEL Comment:Testing performed by : [address] [address] ALT 24 7 - 55 Units/L NEEL Comment:Testing performed by : [address] [address] AST 25 10 - 50 Units/L NEEL Comment: Hemolyzed; result may be falsely elevated Testing performed by: [address] [address] Blood 10/08/2024 7:25 PM CDT 10/08/2024 7:29 PM CDT us Lilliana LAWTON LAB BLOOD ORDERABLES Final Result Performing Organization Address City/State/[facility] Co de Phone Number NEEL [facility] Department [place] [address] * CTA Chest Abdomen Pelvis (10/07/2024 6:41 [...] Melissa Phoenix M.D. SN T: Report ID: [id number] Reading Location: [id number] Procedure Note Melissa Phoenix MD - 10/07/2024 [...] Melissa Phoenix M.D. 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 SN T: Report ID: [id number] Reading Location: [id number] Procedure Note Melissa Phoenix MD - 10/07/2024 EXAM DESCRIPTION: XR CHEST 1 VIEW REASON FOR STUDY: Abd pain, unspecified C/o upper L quad abd pain. 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 SN T: Report ID: [id number] Reading Location: [place] [address] Jose Francisco Harper DO IMG XR PROCEDURES Final Res ult * Troponin T high-sensitivity 2-hour (10/07/2024 6:05 AM CDT) Pathologist [facility] Trop T hs <6 <=22 ng/L Comment: [...] DO LAB BLOOD ORDERABLES Final Result NEEL [address] [facility] Department [place] [address] * ECG 12 lead (10/07/2024 4:11 AM CDT) Ventricular Rate EKG/Min 65 BPM [facility] Atrial Rate 65 BPM [facility] ID-Interval (MSEC) 108 ms [facility] QRS-Interval (MSEC) 102 ms [facility] QT-Interval (MSEC) 388 ms [facility] QTc 403 ms [facility] P Scroggins 30 degrees [facility] R Scroggins 56 degrees [facility] T Scroggins 58 degrees [facility] Diagnosis Sinus rhythm with short ID Otherwise normal ECG When compared with ECG of 27-JUN-2024 09:54, No significant change was found Confirmed by ASHLIE BERMEO M.D. ([id number]) on 10/07/2024 11:47:08 PM [facility] 10/07/2024 4:11 AM CDT 10/07/2024 11:47 PM CDT Jose Francisco Harper DO ECG ORDERABLES Final Resul t Performing Organization Address [facility] Phone Number [facility] * Urinalysis reflex to microscopic and culture Urine (10/07/2024 4:06 AM CDT) Color, ur Yellow Yellow Clarity, ur Clear Clear [facility] Specific gravity, ur 1.013 1.003 - 1.030 [facility] pH, urine 5.5 [facility] Comment: Interpretive Data U rine pH is affected by diet, medications, systemic acid-base disturbances, and renal tubular function. pH may affect urinary stone formation. For example, urine pH below 6.0 may help reduce the tendency for calcium phosphate stones and pH greater than 6.0 may reduce the tendency for uric acid stone formation. Source: [facility] Current Interpretive Data was last revised on 2017 Protein, ur ql Negative Negative [facility] Glucose, ur ql Negative Negative [facility] Ketones, ur Negative Negative [facility] Bilirubin, ur Negative Negative [facility] Blood, ur Negative Negative [facility] Urobilinogen, ur <2.0 <2.0 mg/dL [facility] Nitrite, ur Negative Negative [facility] Leukocyte esterase, ur Negative Negative [facility] UA reflex comment Reflex conditions for microscopic UA and culture not met. [facility] Urine 10/07/2024 4:06 AM CDT 10/07/2024 4:10 AM CDT Jose Francisco Harper DO LAB MICROBIOLOGY - GENERAL ORDERABLES Final Result Performing Organization Address [facility] Co de Phone Number NEEL [address] [place] [address] * Troponin T high-sensitivity series (baseline, 2hr, [...] BLOOD ORDERABLES Final Result Performing Organization Address [facility] Co de Phone Number NEEL [address] [place] [address] * eGFR (10/07/2024 4:00 AM CDT) eGFR [...] DO LAB BLOOD ORDERABLES Final Result NEEL [address] [facility] Department [place] [address] * (ABNORMAL) Differential, auto (10/07/2024 4:00 AM CDT) Neutrophil abs 5.81 1.50 - 6.50 K/cumm Imm gran abs 0.04 0.00 - 0.10 K/cumm [facility] Lymphocyte abs 3.73(H) 0.80 - 3.30 K/cumm [facility] Monocyte abs 1.14(H) 0.20 - 0.80 K/cumm [facility] Eosinophil abs 0.27 0.00 - 0.50 K/cumm [facility] Basophil abs 0.06 0.00 - 0.10 K/cumm [facility] Neutrophil pct 52.6 % [facility] Comment: Interpretive Data Percent cell count reference ranges are not reported, since discordance with absolute values may lead to misinterpretation of CBC data. Current Interpretive Data was last revised on 2017. Imm gran pct 0.4 % [facility] Comment: Interpretive Data Percent cell count reference ranges are not reported, since discordance with absolute values may lead to misinterpretation of CBC data. Current Interpretive Data was last revised on 2017. Lymphocyte pct 33.8 % [facility] Comment: Interpretive Data Percent cell count reference ranges are not reported, since discordance with absolute values may lead to misinterpretation of CBC data. Current Interpretive Data was last revised on 2017. Monocyte pct 10.3 % [facility] Comment: Interpretive Data Percent cell count reference ranges are not reported, since discordance with absolute values may lead to misinterpretation of CBC data. Current Interpretive Data was last revised on 2017. Eosinophil pct 2.4 % [facility] Comment: Interpretive Data Percent cell count reference ranges are not reported, since discordance with absolute values may lead to misinterpretation of CBC data. Current Interpretive Data was last revised on 2017. Basophil pct 0.5 % [facility] Comment: Interpretive Data Percent cell count reference ranges are not reported, since discordance with absolute values may lead to misinterpretation of CBC data. Current Interpretive Data was last revised on 2017. Blood 10/07/2024 4:00 AM CDT 10/07/2024 4:02 AM CDT [facility] Final Result Performing Organization Address City/[facility]/ZIP Co de Phone Number NEEL [address] [place] [address] * (ABNORMAL) CBC with auto differential (10/07/2024 4:00 AM CDT) WBC 11.05(H) 3.80 - 9.90 K/cumm Hgb 14.9 13.0 - 17.5 g/dL [facility] Hct 44.7 38.9 - 50.3 % [facility] Plt 281 150 - 400 K/cumm [facility] MPV 9.8 9.1 - 12.3 fL [facility] RBC 5.28 4.30 - 5.80 M/cumm [facility] MCV 84.7 81.3 - 96.4 fL [facility] MCH 28.2 27.1 - 33.3 pg [facility] MCHC 33.3 32.3 - 35.7 g/dL [facility] RDW CV 15.3(H) 11.1 - 14.9 % [facility] RDW SD 46.6 35.7 - 48.1 fL [facility] NRBC abs 0.00 0.00 - 0.01 K/cumm [facility] Blood Venous blood specimen / Unknown 10/07/2024 4:00 AM CDT 10/07/2024 4:02 AM CDT us Jose Francisco Harper LAB BLOOD ORDERABLES Final Result Performing Organization Address City/[facility]/ZIP Co de Phone Number NEEL [address] [place] [address] * (ABNORMAL) Lipase (10/07/2024 4:00 AM CDT) Lipase 104(H) 10 - 99 Units/L Blood Venous blood specimen / Unknown 10/07/2024 4:00 AM CDT 10/07/2024 4:02 AM CDT Jose Francisco Harper DO LAB BLOOD ORDERABLES Final Result [facility] [address] [facility] Department [place] [address] * Comprehensive metabolic panel (10/07/2024 4:00 AM CDT) Pathologist [facility] Sodium 142 135 - 145 mmol/L Potassium, pl 4.1 3.3 - 4.9 mmol/L [facility] Chloride 107 97 - 110 mmol/L [facility] CO2 23 22 - 32 mmol/L [facility] Anion gap 12 2 - 15 mmol/L [facility] BUN 9 6 - 25 mg/dL [facility] Creatinine 1.08 0.80 - 1.30 mg/dL [facility] Glucose 90 70 - 199 mg/dL [facility] Comment: Interpretive Data Fasting glucose [...] 2022. Calcium 9.4 8.5 - 10.3 mg/dL [facility] Bilirubin, total 0.2 0.1 - 1.2 mg/dL [facility] Protein, pl 7.1 6.5 - 8.5 g/dL [facility] Albumin 4.4 3.5 - 5.0 g/dL [facility] Alk phos 81 40 - 130 Units/L [facility] ALT 23 7 - 55 Units/L [facility] AST 24 10 - 50 Units/L [facility] Blood 10/07/2024 4:00 AM CDT 10/07/2024 4:02 AM CDT Jose Francisco Harper DO LAB BLOOD ORDERABLES Final Result Performing Organization Address [facility] Co de Phone Number NEEL [address] [address] * eGFR (10/03/2024 7:08 AM CDT) Pathologist [facility] [...] ORDERABLES Final Res ult Performing Organization Address [facility]/ZIP Co de Phone Number NEEL [address] [place] [address] [place] [address] * (ABNORMAL) CBC without differential (10/03/2024 7:08 AM CDT) [facility] WBC 13.42(H) 3.80 - 9.90 K/cumm Hgb 12.4(L) 13.0 - 17.5 g/dL [facility] Hct 37.9(L) 38.9 - 50.3 % [facility] Plt 226 150 - 400 K/cumm [facility] MPV 10.0 9.1 - 12.3 fL [facility] RBC 4.43 4.30 - 5.80 M/cumm [facility] MCV 85.6 81.3 - 96.4 fL [facility] MCH 28.0 27.1 - 33.3 pg [facility] MCHC 32.7 32.3 - 35.7 g/dL [facility] RDW CV 15.4(H) 11.1 - 14.9 % [facility] RDW SD 48.1 35.7 - 48.1 fL [facility] NRBC abs 0.00 0.00 - 0.01 K/cumm [facility] Blood 10/03/2024 7:08 AM CDT 10/03/2024 7:22 AM CDT us Fred Toth MD LAB BLOOD ORDERABLES Final Res ult Performing Organization Address [facility] Co de Phone Number [address] [place] [address] * Lipase (10/03/2024 7:08 AM CDT) [facility] Lipase 55 10 - 99 Units/L Blood 10/03/2024 7:08 AM CDT 10/03/2024 7:22 AM CDT Fred Toth MD LAB BLOOD ORDERABLES Final Res ult Performing Organization Address [facility] de Phone Number [address] [place] [address] * Basic metabolic panel (10/03/2024 7:08 AM CDT) [facility] Sodium 141 135 - 145 mmol/L Potassium, pl 4.4 3.3 - 4.9 mmol/L [facility] Chloride 107 97 - 110 mmol/L [facility] CO2 24 22 - 32 mmol/L [facility] Anion gap 10 2 - 15 mmol/L [facility] BUN 9 6 - 25 mg/dL [facility] Creatinine 0.96 0.80 - 1.30 mg/dL [facility] Glucose 100 70 - 199 mg/dL [facility] Comment: Interpretive Data Fasting glucose [...] MD LAB BLOOD ORDERABLES Final Res ult [facility] [address] [facility] Department [place] [address] * (ABNORMAL) Lipid panel (10/03/2024 1:54 AM CDT) Pathologist [facility] Cholesterol 114 30 - 199 mg/dL Comment: [...] last revised on 2017. Testing performed by: [facility], [address] [place] [address]., [address] Triglycerides 115 <=149 mg/dL [facility] Comment: Interpretive Data Ages < or = [...] revised on 2017. Testing performed by: [address] [address] HDL 32(L) >=40 mg/dL NEEL Comment: Interpretive [...] revised on 2017. Testing performed by: [address] [address] LDL, calculated 61 <=129 mg/dL NEEL Comment: [...] last revised on 2023. Testing performed by: [address] [address] Non-HDL Cholesterol 82 mg/dL NEEL SMITH Comment: [...] revised on 2017. Testing performed by: [address] [address] Chol/HDL ratio 4 NEEL Comment:Testing performed by : [address] [address] Blood 10/03/2024 1:54 AM CDT 10/03/2024 2:00 AM CDT us Fred Toth MD LAB BLOOD ORDERABLES Final Res ult NEEL [address] [facility] Department [place] [address] * CT Abdomen Pelvis W Contrast (10/03/2024 [...] Aryan Jovel M.D. AR: GIOVANNA Report ID: [id number] Reading Location: [place] [address] Procedure Note Aryan Jovel MD - 10/03/2024 [...] Aryan Jovel M.D. AR: GIOVANNA Report ID: [id number] Reading Location: [place] [address] Fred Toth MD IMG CT PROCEDURES Final Result * (ABNORMAL) Drugs of Abuse Screen, Urine with Reflex Confirmation (10/03/2024 12:51 AM CDT) [facility] Amphetamine, ur Not Detected CutOff 500ng/mL Comment: Interpretive Data - Amphetamines: Samples containing greater than 500 ng/mL d-methamphetamine or other cross-reacting amphetamine compounds are reported as positive. Amphetamine immunoassays are subject to significant false positive rates due to cross-reactivity of non-amphetamine drugs. Confirmatory testing required for definitive results. Current Interpretive Data was last reviewed 2022. Testing performed by: [facility], [address] [place] [address]., [address] Barbiturates, ur Not Detected CutOff 200ng/mL NEEL SMITH Comment: Interpretive Data - Barbiturates: Samples containing greater than 200 ng/mL secobarbital or other cross-reacting barbiturate compounds are reported as positive. False positive and false negative results are possible. Confirmatory testing required for definitive results. Current Interpretive Data was last reviewed 2022. Testing performed by: [address] [address] Benzodiazepines, ur Not Detected CutOff 100ng/mL [facility] Comment: Interpretive Data - Benzodiazepines: Samples containing greater than 100 ng/mL nordiazepam or other cross-reacting compounds are reported as positive. False positive and false negative results are possible. Confirmatory testing required for definitive results. Current Interpretive Data was last reviewed 2022. Testing performed by: [address] [address] Cannabinoids, ur Screen Positive, presumptive (A) CutOff 50 ng/mL [facility] Comment: Interpretive Data - Cannabinoids: Samples containing greater than 50 ng/mL delta-9 THC -COOH or other cross- reacting compounds are reported as positive. False positive and false negative results are possible. Confirmatory testing required for definitive results. Current Interpretive Data was last reviewed 2022. Testing performed by: [address] [address] Cocaine, ur Not Detected CutOff 150ng/mL [facility] Comment: Interpretive Data - Cocaine: Samples containing greater than 150 ng/mL benzoylecgonine or other cross- reacting compounds are reported as positive. False positive and false negative results are possible. Confirmatory testing required for definitive results. Current Interpretive Data was last reviewed 2022. Testing performed by: [address] [address] Fentanyl, Ur Not Detected CutOff 5 ng/mL [facility] Comment: Interpretive Data - Fentanyl: Samples containing greater than 1 ng/mL fentanyl or other cross-reacting fentanyl compounds are reported as positive. False positive and false negative results are possible. Confirmatory testing required for definitive results. Current Interpretive Data was last reviewed 2022. Testing performed by: [address], [place]., [address] Methadone, ur Not Detected CutOff 300ng/mL [facility] Comment: Interpretive Data - Methadone: Samples containing greater than 300 ng/mL d,l-methadone or other cross-reacting compounds are reported as positive. False positive and false negative results are possible. Confirmatory testing required for definitive results. Current Interpretive Data was last reviewed 2022. Testing performed by: [address] [address] Opiates, ur Not Detected CutOff 300ng/mL NEEL Comment: Interpretive Data - Opiates: Samples containing greater than 300 ng/mL morphine or other cross-reacting compounds are reported as positive. False positive and false negative results are possible. Confirmatory testing required for definitive results. Current Interpretive Data was last reviewed 2022. Testing performed by: [address] [address] Oxycodone, ur Not Detected CutOff 100ng/mL NEEL Comment: Interpretive Data - Oxycodone: Samples containing greater than 100 ng/mL oxycodone or other cross-reacting compounds are reported as positive. False positive and false negative results are possible. Confirmatory testing required for definitive results. Current Interpretive Data was last reviewed 2022. Testing performed by: [address] [address] Phencyclidine, ur Not Detected CutOff 25 ng/mL NEEL Comment: Interpretive Data - Phencyclidine: Samples containing greater than 25 ng/mL phencyclidine or other cross-reacting compounds are reported as positive. False positive and false negative results are possible. Confirmatory testing required for definitive results. Current Interpretive Data was last reviewed 2022. Testing performed by: [address] [address] Urine Creatinine 102 mg/dL NEEL Comment: Interpretive Data Urine Creatinine: < 10 mg/dL is extremely dilute = or > 10 but < 20 mg/dL is dilute = or > 20 mg/dL is normal Current Interpretive Data was last revised on 2017. Testing performed by: [address] [address] Urine 10/03/2024 12:5 1 AM CDT 10/03/2024 [...] LAB URINE ORDERABLES Final Res ult NEEL [address] [facility] Department [place] [address] * Urinalysis reflex to microscopic and culture Urine (10/02/2024 10:09 PM CDT) Color, ur Yellow Yellow Comment:Testing performed by : [address] [address] Clarity, ur Clear Clear NEEL Comment:Testing performed by : [address] [address] Specific gravity, ur 1.011 1.003 - 1.030 NEEL Comment:Testing performed by : [address] [address] pH, urine 6.0 NEEL Comment: Interpretive Data U rine pH is affected by diet, medications, systemic acid-base disturbances, and renal tubular function. pH may affect urinary stone formation. For example, urine pH below 6.0 may help reduce the tendency for calcium phosphate stones and pH greater than 6.0 may reduce the tendency for uric acid stone formation. Source: [facility] [employer] Current Interpretive Data was last revised on 2017 Testing performed by: [address] [address] Protein, ur ql Negative Negative NEEL Comment:Testing performed by : [address] [address] Glucose, ur ql Negative Negative NEEL Comment:Testing performed by : [address] [address] Ketones, ur Negative Negative NEEL Comment:Testing performed by : [address] [address] Bilirubin, ur Negative Negative NEEL Comment:Testing performed by : [address] [place] [address] Blood, ur Negative Negative NEEL Comment:Testing performed by : [address], [place]., [address] Urobilinogen, ur <2.0 <2.0 mg/dL NEEL Comment:Testing performed by : [address], [place]., [address] Nitrite, ur Negative Negative NEEL Comment:Testing performed by : [address], [place]., [address] Leukocyte esterase, ur Negative Negative NEEL Comment:Testing performed by : [address], [place]., [address] UA reflex comment Reflex conditions for microscopic UA and culture not met. NEEL Comment:Testing performed by : [facility], [address] [place] [address], [place]., [address] Urine 10/02/2024 10:0 9 PM CDT 10/02/2024 10:11 PM CDT us María Elena Calvo MD LAB MICROBIOLOGY - GENERA L ORDERABLES Final Result NEEL [address] [facility] Department [place] [address] * eGFR (10/02/2024 9:51 PM [...] last reviewed 2021. Testing performed by: [address] [address] Blood 10/02/2024 9:51 PM CDT 10/02/2024 9:57 PM CDT us María Elena Calvo MD LAB BLOOD ORDERABLES Renee antunez Result [facility] [address] [facility] Department [place] [address] * (ABNORMAL) Differential, auto (10/02/2024 9:51 PM CDT) Neutrophil abs 12.91(H) 1.50 - 6.50 K/cumm Comment:Testing performed by : [address] [address] Imm gran abs 0.10 0.00 - 0.10 K/cumm NEEL Comment:Testing performed by : [address] [address] Lymphocyte abs 1.91 0.80 - 3.30 K/cumm NEEL Comment:Testing performed by : [address] [address] Monocyte abs 1.44(H) 0.20 - 0.80 K/cumm NEEL Comment:Testing performed by : [address] [address] Eosinophil abs 0.14 0.00 - 0.50 K/cumm NEEL Comment:Testing performed by : [address] [address] Basophil abs 0.07 0.00 - 0.10 K/cumm NEEL Comment:Testing performed by : [address] [address] Neutrophil pct 78.0 % NEEL Comment: Interpretive Data Percent cell count reference ranges are not reported, since discordance with absolute values may lead to misinterpretation of CBC data. Current Interpretive Data was last revised on 2017. Testing performed by: [address] [address] Imm gran pct 0.6 % [facility] Comment: Interpretive Data Percent cell count reference ranges are not reported, since discordance with absolute values may lead to misinterpretation of CBC data. Current Interpretive Data was last revised on 2017. Testing performed by: [address] [address] Lymphocyte pct 11.5 % [facility] Comment: Interpretive Data Percent cell count reference ranges are not reported, since discordance with absolute values may lead to misinterpretation of CBC data. Current Interpretive Data was last revised on 2017. Testing performed by: [address] [address] Monocyte pct 8.7 % [facility] Comment: Interpretive Data Percent cell count reference ranges are not reported, since discordance with absolute values may lead to misinterpretation of CBC data. Current Interpretive Data was last revised on 2017. Testing performed by: [address] [address] Eosinophil pct 0.8 % [facility] Comment: Interpretive Data Percent cell count reference ranges are not reported, since discordance with absolute values may lead to misinterpretation of CBC data. Current Interpretive Data was last revised on 2017. Testing performed by: [address] [address] Basophil pct 0.4 % [facility] Comment: Interpretive Data Percent cell count reference ranges are not reported, since discordance with absolute values may lead to misinterpretation of CBC data. Current Interpretive Data was last revised on 2017. Testing performed by: [address] [address] Blood 10/02/2024 9:51 PM CDT 10/02/2024 9:57 PM CDT us María Elena Calvo MD LAB BLOOD ORDERABLES Renee antunez Result NEEL [address] [place] [address] Department [place] [address] * (ABNORMAL) CBC with auto differential (10/02/2024 9:51 PM CDT) [facility] WBC 16.57(H) 3.80 - 9.90 K/cumm Comment:Testing performed by : [address] [address] Hgb 13.9 13.0 - 17.5 g/dL NEEL Comment:Testing performed by : [address], [address] Hct 41.0 38.9 - 50.3 % NEEL Comment:Testing performed by : [address], [address] Plt 281 150 - 400 K/cumm NEEL Comment:Testing performed by : [address] [address] MPV 9.9 9.1 - 12.3 fL NEEL Comment:Testing performed by : [address], [address] RBC 4.94 4.30 - 5.80 M/cumm NEEL Comment:Testing performed by : [address] [address] MCV 83.0 81.3 - 96.4 fL NEEL Comment:Testing performed by : [address] [address] MCH 28.1 27.1 - 33.3 pg NEEL Comment:Testing performed by : [address] [address], [address] MCHC 33.9 32.3 - 35.7 g/dL NEEL Comment:Testing performed by : [address], [address] RDW CV 15.4(H) 11.1 - 14.9 % NEEL Comment:Testing performed by : [address] [address] RDW SD 46.5 35.7 - 48.1 fL NEEL Comment:Testing performed by : [address], [address] NRBC abs 0.00 0.00 - 0.01 K/cumm NEEL Comment:Testing performed by : [address] [address] Blood Venous blood specimen / Unknown 10/02/2024 9:51 PM CDT 10/02/2024 9:57 PM CDT María Elena Calvo MD LAB BLOOD ORDERABLES Renee l Result Performing Organization Address [facility] Co de Phone Number [address] [place] [address] * (ABNORMAL) Lipase (10/02/2024 9:51 PM CDT) [facility] Lipase 444(H) 10 - 99 Units/L Comment:Testing performed by : [address] [address] Blood Venous blood specimen / Unknown 10/02/2024 9:51 PM CDT 10/02/2024 9:57 PM CDT María Elena Calvo MD LAB BLOOD ORDERABLES Renee l Result Performing Organization Address [facility] Co de Phone Number [address] [address] * Comprehensive metabolic panel (10/02/2024 9:51 PM CDT) [facility] Sodium 143 135 - 145 mmol/L Comment:Testing performed by : [address] [address] Potassium, pl 3.9 3.3 - 4.9 mmol/L NEEL SMITH Comment:Testing performed by : [address] [address] Chloride 107 97 - 110 mmol/L NEEL Comment:Testing performed by : [address] [address] CO2 22 22 - 32 mmol/L NEEL SMITH Comment:Testing performed by : [address] [address] Anion gap 14 2 - 15 mmol/L NEEL Comment:Testing performed by : [address] [address] BUN 7 6 - 25 mg/dL NEEL Comment:Testing performed by : [address], [place]., [address] Creatinine 1.08 0.80 - 1.30 mg/dL NEEL Comment:Testing performed by : [address] [address] Glucose 129 70 - 199 mg/dL [facility] Comment: Interpretive Data Fasting glucose >/= [...] last revised 2022. Testing performed by: [address] [address] Calcium 10.0 8.5 - 10.3 mg/dL NEEL Comment:Testing performed by : [address] [address] Bilirubin, total 0.3 0.1 - 1.2 mg/dL NEEL Comment:Testing performed by : [address] [address] Protein, pl 7.2 6.5 - 8.5 g/dL NEEL Comment:Testing performed by : [address] [address] Albumin 4.5 3.5 - 5.0 g/dL NEEL Comment:Testing performed by : [address] [address] Alk phos 84 40 - 130 Units/L NEEL Comment:Testing performed by : [address] [address] ALT 28 7 - 55 Units/L NEEL SMITH Comment:Testing performed by : [facility], [address] [place] [address]., [address] AST 37 10 - 50 Units/L NEEL Comment:Testing performed by : [facility], [address] [place] [address]., [address] Blood 10/02/2024 9:51 PM CDT 10/02/2024 9:57 PM CDT us María Elena Calvo MD LAB BLOOD ORDERABLES Renee antunez Result [facility] [address] [facility] Department [place] [address] * CT Abdomen Pelvis W [...] Esa Cao M.D. AG: GONZALES Report ID: [id number] Reading Location: [place] [address] Procedure Note Esa Cao MD - 09/30/2024 [...] Esa Cao M.D. AG: GONZALES Report ID: [id number] Reading Location: [id number] Radha Casas DO IMG CT PROCEDURES Final Result * (ABNORMAL) Urinalysis reflex to microscopic and culture Urine (09/30/2024 5:55 PM CDT) Color, ur Yellow Yellow Comment:Testing performed by : [facility], [address] [place] [address]., [address] Clarity, ur Clear Clear NEEL Comment:Testing performed by : [address], [place]., [address] Specific gravity, ur 1.035(H) 1.003 - 1.030 NEEL Comment:Testing performed by : [address], [place]., [address] pH, urine 6.0 NEEL Comment: Interpretive Data U rine pH is affected by diet, medications, systemic acid-base disturbances, and renal tubular function. pH may affect urinary stone formation. For example, urine pH below 6.0 may help reduce the tendency for calcium phosphate stones and pH greater than 6.0 may reduce the tendency for uric acid stone formation. Source: [facility] [employer] Current Interpretive Data was last revised on 2017 Testing performed by: [address] [address] Protein, ur ql 1+(A) Negative NEEL Comment:Testing performed by : [address] [address] Glucose, ur ql Negative Negative NEEL Comment:Testing performed by : [address] [address] Ketones, ur 1+(A) Negative NEEL Comment:Testing performed by : [address] [address] Bilirubin, ur Negative Negative NEEL Comment:Testing performed by : [address] [address] Blood, ur Negative Negative NEEL Comment:Testing performed by : [address], [place]., [address] Urobilinogen, ur 2.0(A) <2.0 mg/dL NEEL Comment:Testing performed by : [address], [place]., [address] Nitrite, ur Negative Negative NEEL Comment:Testing performed by : [address] [address] Leukocyte esterase, ur Negative Negative NEEL Comment:Testing performed by : [address] [address] UA reflex comment Reflex to microscopic UA will be performed. NEEL Comment:Testing performed by : [address] [address] Urine 09/30/2024 5:55 PM CDT 09/30/2024 5:57 PM CDT Radha Casas DO LAB MICROBIOLOGY - GENERAL ORDE RABLES Final Result Performing Organization Address [facility] Co de Phone Number NEEL [address] [facility] [place] [address] * (ABNORMAL) Urinalysis, microscopic only (09/30/2024 5:55 PM CDT) WBC, ur 6-10(A) 0 - 5 /HPF Comment:Testing performed by : [address] [address] RBC, ur 3-5(A) 0 - 2 /HPF NEEL Comment:Testing performed by : [address] [address] Epithelial cells, squamous, ur 6-10(A) 0 - 5 /HPF NEEL Comment:Testing performed by : [address] [address] Mucous, ur Present(A) NEEL Comment:Testing performed by : [address] [address] Culture Reflex Comment Reflex conditions for urine culture (WBC >10) not met. NEEL Comment:Testing performed by : [address] [address] Urine 09/30/2024 5:55 PM CDT 09/30/2024 5:57 PM CDT Radha Casas DO LAB URINE ORDERABLES Final Resu lt Performing Organization Address [facility]/ZIP Co de Phone Number NEEL [address] [facility] [place] [address] * eGFR (09/30/2024 4:01 PM CDT) eGFR [...] last reviewed 2021. Testing performed by: [address] [address] Blood 09/30/2024 4:01 PM CDT 09/30/2024 4:06 PM CDT Radha Casas DO LAB BLOOD ORDERABLES Final Resu lt NEEL [address] [facility] Department [place] [address] * Differential, auto (09/30/2024 4:01 PM CDT) Pathologist [facility] Neutrophil abs 5.11 1.50 - 6.50 K/cumm Comment:Testing performed by : [address] [address] Imm gran abs 0.04 0.00 - 0.10 K/cumm NEEL SMITH Comment:Testing performed by : [address] [address] Lymphocyte abs 1.62 0.80 - 3.30 K/cumm NEEL Comment:Testing performed by : [address] [address] Monocyte abs 0.77 0.20 - 0.80 K/cumm [facility] Comment:Testing performed by : [address] [address] Eosinophil abs 0.18 0.00 - 0.50 K/cumm [facility] Comment:Testing performed by : [address] [address] Basophil abs 0.05 0.00 - 0.10 K/cumm [facility] Comment:Testing performed by : [address] [address] Neutrophil pct 65.9 % [facility] Comment: Interpretive Data Percent cell count reference ranges are not reported, since discordance with absolute values may lead to misinterpretation of CBC data. Current Interpretive Data was last revised on 2017. Testing performed by: [address] [address] Imm gran pct 0.5 % [facility] Comment: Interpretive Data Percent cell count reference ranges are not reported, since discordance with absolute values may lead to misinterpretation of CBC data. Current Interpretive Data was last revised on 2017. Testing performed by: [address] [address] Lymphocyte pct 20.8 % [facility] Comment: Interpretive Data Percent cell count reference ranges are not reported, since discordance with absolute values may lead to misinterpretation of CBC data. Current Interpretive Data was last revised on 2017. Testing performed by: [address] [address] Monocyte pct 9.9 % [facility] Comment: Interpretive Data Percent cell count reference ranges are not reported, since discordance with absolute values may lead to misinterpretation of CBC data. Current Interpretive Data was last revised on 2017. Testing performed by: [address] [address] Eosinophil pct 2.3 % [facility] Comment: Interpretive Data Percent cell count reference ranges are not reported, since discordance with absolute values may lead to misinterpretation of CBC data. Current Interpretive Data was last revised on 2017. Testing performed by: [address] [address] Basophil pct 0.6 % NEEL SMITH Comment: Interpretive Data Percent cell count reference ranges are not reported, since discordance with absolute values may lead to misinterpretation of CBC data. Current Interpretive Data was last revised on 2017. Testing performed by: [address] [address] Blood 09/30/2024 4:01 PM CDT 09/30/2024 4:06 PM CDT us Radha Casas DO LAB BLOOD ORDERABLES Final Resu lt NEEL SMITH [address] [facility] Department [place] [address] * (ABNORMAL) CBC with auto differential (09/30/2024 4:01 PM CDT) WBC 7.77 3.80 - 9.90 K/cumm Comment:Testing performed by : [address] [address] Hgb 14.5 13.0 - 17.5 g/dL NEEL SMITH Comment:Testing performed by : [address] [address] Hct 43.0 38.9 - 50.3 % NEEL SMITH Comment:Testing performed by : [address] [address] Plt 278 150 - 400 K/cumm NEEL SMITH Comment:Testing performed by : [address] [address] MPV 9.8 9.1 - 12.3 fL NEEL SMITH Comment:Testing performed by : [address] [address] RBC 5.18 4.30 - 5.80 M/cumm NEEL SMITH Comment:Testing performed by : [address] [address] MCV 83.0 81.3 - 96.4 fL NEEL SMITH Comment:Testing performed by : [address] [address] MCH 28.0 27.1 - 33.3 pg NEEL SMITH Comment:Testing performed by : [address] [address] MCHC 33.7 32.3 - 35.7 g/dL NEEL SMITH Comment:Testing performed by : [address], [address] RDW CV 15.3(H) 11.1 - 14.9 % NEEL SMITH Comment:Testing performed by : [address] [address] RDW SD 46.4 35.7 - 48.1 fL NEEL SMITH Comment:Testing performed by : [address], [address] NRBC abs 0.00 0.00 - 0.01 K/cumm NEEL SMITH Comment:Testing performed by : [address], [address] Blood Venous blood specimen / Unknown 09/30/2024 4:01 PM CDT 09/30/2024 4:06 PM CDT Radha Casas LAB BLOOD ORDERABLES Final Resu lt Performing Organization Address City/[facility]/ZIP Co de Phone Number [address] [place] [address] * Lipase (09/30/2024 4:01 PM CDT) Pathologist [facility] Lipase 51 10 - 99 Units/L Comment:Testing performed by : [address] [address] Blood Venous blood specimen / Unknown 09/30/2024 4:01 PM CDT 09/30/2024 4:06 PM CDT Radha Yessenia LAB BLOOD ORDERABLES Final Resu lt [address] [place] [address] * Comprehensive metabolic panel (09/30/2024 4:01 PM CDT) Sodium 141 135 - 145 mmol/L Comment:Testing performed by : [address] [address] Potassium, pl 4.0 3.3 - 4.9 mmol/L NEEL Comment:Testing performed by : [address] [address] Chloride 106 97 - 110 mmol/L [facility] Comment:Testing performed by : [address], [place]., [address] CO2 24 22 - 32 mmol/L [facility] Comment:Testing performed by : [address] [address] Anion gap 11 2 - 15 mmol/L [facility] Comment:Testing performed by : [address] [address] BUN 9 6 - 25 mg/dL [facility] Comment:Testing performed by : [address], [place]., [address] Creatinine 1.00 0.80 - 1.30 mg/dL [facility] Comment:Testing performed by : [address] [address] Glucose 107 70 - 199 mg/dL [facility] Comment: Interpretive Data Fasting glucose [...] last revised 2022. Testing performed by: [address] [address] Calcium 9.6 8.5 - 10.3 mg/dL [facility] Comment:Testing performed by : [address] [address] Bilirubin, total 0.4 0.1 - 1.2 mg/dL NEEL SMITH Comment:Testing performed by : [address] [address] Protein, pl 7.1 6.5 - 8.5 g/dL NEEL SMITH Comment:Testing performed by : [address] [address] Albumin 4.3 3.5 - 5.0 g/dL NEEL Comment:Testing performed by : [address] [address] Alk phos 87 40 - 130 Units/L NEEL Comment:Testing performed by : [address] [address] ALT 25 7 - 55 Units/L NEEL Comment:Testing performed by : [address] [address] AST 25 10 - 50 Units/L NEEL Comment:Testing performed by : [address] [address] Blood 09/30/2024 4:01 PM CDT 09/30/2024 4:06 PM CDT Radha Casas DO LAB BLOOD ORDERABLES Final Resu lt NEEL [address] [facility] Department of Laboratories [place], [place] [id number] from Last 3 Months Advance Directives For more information, please contact: [phone] * Full Code (Latest Code Status on [...] 8:00 AM 06/30/2022 5:06 PM Care Teams Gold Miner Relationship Specialty Start Date End Date Td Lopez MD [address] [facility] [address] [place] [address] PCP - General Family Medicine 11/09/20 Angie Woodard MD [address] [facility] [address] [facility] [address] [place] [address] Consulting Physician Gastroenterology 07/17/21 Vimal Woodruff MD [address] [facility] [address] [place] [address] Consulting Physician Gastroenterology 02/10/22
--- OUTSIDE RECORDS SUMMARY | 2024-11-29 02:59 | XMS_ITS | Clinical Summary ---
Author Organization [facility] Address [address] [facility] [place] [address] Care Team Providers Care Public Health Dietitian Name Role Phone Alee Zhao MD Primary Care Provider [phone] Source Comments [facility],non-owned Affiliates and Associated Physician Practices is amultiple site organization consisting of ambulatory clinics and hospital sitesin [place], [place], [place] and [place]. This disclosure is being madepursuant to the Care Everywhere program and may not contain all information available regarding this patient. Last updated 18.[facility] Allergies Active Allergy Reactions Criticality Noted Date [...] on file Legal Sex Male 7:46 PM [employer] Gender Identity Not on file Sexual Orientation Not on file Last Filed Vital Signs Vital Sign Reading Time Taken Comments Blood Pressure 120/71 03/17/2019 5:03 PM [employer] Pulse 75 03/17/2019 5:03 PM [employer] Temperature 36.9 C (98.4 F) 03/17/2019 2:00 PM [employer] Respiratory Rate 17 03/17/2019 5:03 PM [employer] Oxygen Saturation 99% 03/17/2019 5:03 PM [employer] Inhaled Oxygen Concentration - - Weight 77.1 kg (170 lb) 03/17/2019 2:00 PM [employer] Height 177.8 cm (5' 10) 03/17/2019 2:00 PM [employer] Body Mass Index 24.39 03/17/2019 2:00 PM [employer] Plan of Treatment Health Maintenance Due Date [...] RFLX NAAT QUANT STAT 03/27/2018 9:12 PM [employer] HIV-1 HIV-2 ANTIGEN/ANTIBODY STAT 03/27/2018 9:12 PM [employer] from Last 3 Months or Most Recently Relevant to Health Maintenance Results * HIV-1 HIV-2 ANTIGEN/ANTIBODY (03/27/2018 9:12 PM [employer]) HIV Antigen/Antibod y 1 & 2 Non-reacti ve Non-react nemesio 03/27/2018 10:17 PM [employer] Comment: Neither HIV-1 p24 Antigen nor HIV-1/HIV-2 Antibodies are detected. Blood BLOOD SPECIMEN / Unknown Venipuncture / Unknown 03/27/2018 9:12 PM [employer] 03/27/2018 9:21 PM [employer] us Davi Patrick MD LAB - HEMATOLOGY ORDERABLES Fi nal Result Performing Organization Address [facility] Co de Phone Number [address] [phone] * HEPATITIS C AB SCREEN RFLX NAAT QUANT (03/27/2018 9:12 PM [employer]) Hepatitis C Antibody Non-react nemesio Non-reac tive 03/27/2018 10:20 PM [employer] [facility] Comment: Hepatitis C Antibody screen indicates no serologic evidence of past or current infection with Hepatitis C Virus. Patients with unexplained liver disease who are immunocompromised or suspected of having acute Hepatitis C infection may benefit from Nucleic Acid Test (RINKU) for Hepatitis C Viral RNA to confirm Hepatitis C status. Blood BLOOD SPECIMEN / Unknown Venipuncture / Unknown 03/27/2018 9:12 PM [employer] 03/27/2018 9:21 PM [employer] us Davi Patrick MD LAB - CHEMISTRY ORDERABLES Fin al Result Performing Organization Address [facility] Co de Phone Number [address] [phone] from Last 3 Months or Most Recently Relevant to Health Maintenance Insurance [facility] Care Teams Public Health Dietitian Relationship Specialty Start Date End Date Alee Zhao MD [address] [place] [phone] PCP - General Family Medicine 03/25/18
--- OUTSIDE RECORDS SUMMARY | 2024-11-29 02:59 | XMS_ITS | Encounter Summary ---
Author Organization [facility] Healthcare Address [address] [place] [address] Care Team Providers Care Cant Hooker Name Role Phone Td Lopez MD Primary Care Provider + Angie Woodard MD Unavailable [phone] Vimal Woodruff MD Unavailable [phone] PastorAlannah MA Unavailable [phone] PastorAlannah fair MA Unavailable [phone] PastorAlannah fair MA Unavailable [phone] Enu Arana RN Unavailable Lakshmi Garcia LPN Unavailable [phone] Niki Burns MA Unavailable Encounter Details Date Type Department Care Team (Late st Contact Info) Description 12/30/2023 Orders Only [facility] Health Information Management [address] [place] [address] Scanning, Provider Social History Tobacco Use Types Packs/Day Years Used Date Smoking Tobacco: Every Day Cigarettes Smokeless Tobacco: Never Alcohol Use Standard Drinks/Week Comments Not Currently 0 (1 standard drink = 0.6 oz pur e alcohol) [facility] Utilities Answer Date Recorded In the past 12 months has [employer] electric, gas, oil, or water company threatened [...] often do you attend chur ch or mormonism services? Never 09/21/2023 Do you belong to any clubs o r organizations such as moravian groups, unions, fraternal or athletic groups, or [...] place to sleep or slept in a detention (including now)? No 09/21/2023 Personal Safety Answer Date Recorded Have you ever been in or are you currently in a harmful physical or emotional relationship or is someone making you feel afraid or unsafe? 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 Gender Identity Not on file Sexual [...] on filedocumented in this encounter Care Teams Cant Hooker Relationship Specialty Start Date End Date Td Lopez MD [address] [facility] [address] [place] [address] PCP - General Family Medicine 11/09/20 Angie Woodard MD [address] [facility] [address] [place] [address] Consulting Physician Gastroenterology 07/17/21 Vimal Woodruff MD [address] [facility] [address] [place] [address] Consulting Physician Gastroenterology 02/10/22 Alannah Baumann MA [address] [place] [address] [address] [place] [address] ACO Care Shell Freezing Machine Operator 12/31/23 01/05/24 Alannah Baumann MA [address] [place] [address] [address] [place] [address] ACO Care Shell Freezing Machine Operator 06/29/24 06/30/24 Alannah Baumann MA [address] [place] [address] [address] [place] [address] ACO Care Shell Freezing Machine Operator 08/03/24 08/03/24 Eun Arana, RN [address] [place] [address] [address] [place] [address] Home Care Rn 08/17/24 08/25/24 Lakshmi Garcia LPN [address] [place] [address] [address] [place] [address] Home Care Rn 10/05/24 10/05/24 Niki Burns MA [address] [place] [address] [address] [place] [address] ACO Care Shell Freezing Machine Operator 10/18/24 10/19/24 documented as of this encounter
--- OUTSIDE RECORDS SUMMARY | 2024-11-29 02:59 | XMS_ITS | Encounter Summary ---
Author Organization [facility] Healthcare Address [address] [place] [address] Care Team Providers Care Radiotelephone Operator Name Role Phone Td Lopez MD Primary Care Provider + Angie Woodard MD Unavailable [phone] Vimal Woodruff MD Unavailable [phone] PastorAlannah MA Unavailable [phone] PastorAlannah fair MA Unavailable [phone] PastorAlannah fair MA Unavailable [phone] Eun Arana RN Unavailable Lakshmi Garcia LPN Unavailable [phone] Niki Burns MA Unavailable Encounter Details Date Type Department Care Team (Late st Contact Info) Description 12/21/2017 Documentation [place] [address] [place] [id number] Shannan Farfan, JOHN Social History Tobacco Use Types Packs/Day Years Used Date Smoking Tobacco: Every Day Sex and Gender Information Value Date Recorded Sex Assigned at Not on file 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 07/08/2021 07/14/2021 11/05/2021 3:05 AM C DT COVID: Suspected 05/20/2022 05/20/2022 05/20/2022 2:32 AM INSTRUMENT TECHNICIAN APPRENTICE COVID: Suspected 09/20/2023 09/20/2023 09/20/2023 9:26 PM CDT COVID: Suspected 10/04/2023 10/04/2023 10/04/2023 3:55 PM CDT documented as of this encounter Care Teams Radiotelephone Operator Relationship Specialty Start Date End Date Td Lopez MD [address] [facility] [address] [place] [address] PCP - General Family Medicine 11/09/20 Angie Woodard MD [address] [facility] [[email or web address] [address] [place] [address] Consulting Physician Gastroenterology 07/17/21 Vimal Woodruff MD [address] [facility] [[email or web address] [address] [place] [address] Consulting Physician Gastroenterology 02/10/22 Alannah Baumann MA [address] [facility] [address] [place] [address] ACO Care Asp Net Mvc Developer 12/31/23 01/05/24 Alannah Baumann MA [address] [facility] [address] [place] [address] ACO Care Asp Net Mvc Developer 06/29/24 06/30/24 Alannah Baumann MA [address] [place] [address] [address] [place] [address] ACO Care Asp Net Mvc Developer 08/03/24 08/03/24 Eun Arana RN [address] [place] [address] [address] [place] [address] Waiter/Waitress Cafeteria 08/17/24 08/25/24 Lakshmi Garcia LPN [address] [place] [address] [address] [place] [address] Waiter/Waitress Cafeteria 10/05/24 10/05/24 Niki Burns MA [address] [place] [address] [address] [place] [address] ACO Care Asp Net Mvc Developer 10/18/24 10/19/24 documented as of this encounter
--- OUTSIDE RECORDS SUMMARY | 2024-11-29 02:59 | XMS_ITS | Clinical Summary ---
Author Organization [facility] Address [address] [place] [address] Care Team Providers Care Marine Driller Name Role Phone Td Lopez MD Primary Care Provider + Angie Woodard MD Unavailable [phone] Vimal Woodruff MD Unavailable [phone] Allergies Active Allergy Reactions Criticality Noted Date [...] 03/25/2024 Assessment & Plan (03/25/2024 11:50 AM RAILWAY SIGNALLING ENGINEER): - suspect just muscle strain - will check xray - offered PT but pt refused. Protein-calorie malnutrition, moderate 4 Abdominal pain, generalized 09/19/2023 Assessment & Plan (09/25/2023 12:23 PM CDT): - improving - will give small amount of norco until pt heals from his procedure - f/u with GI Current use of senior living anticoagulation 023 Assessment & Plan (09/25/2023 12:23 PM CDT): - stable - continue eliquis Assessment & Plan (03/20/2023 11:08 AM RAILWAY SIGNALLING ENGINEER): - restart eliquis due to life long need for anticoagulation History of thrombosis 03/20/2023 Assessment & Plan (09/25/2023 12:22 PM CDT): - stable - continue eliquis Assessment & Plan (03/20/2023 11:08 AM RAILWAY SIGNALLING ENGINEER): - restart eliquis due to life [...] famotidine Assessment & Plan (03/20/2023 11:08 AM RAILWAY SIGNALLING ENGINEER): - stable - continue current medication [...] eval. Assessment & Plan (03/25/2024 11:49 AM RAILWAY SIGNALLING ENGINEER): - ref to derm for eval [...] pain Assessment & Plan (03/25/2024 11:49 AM RAILWAY SIGNALLING ENGINEER): - poor control - continue hyosciamine, famotidine, zofran - ref to GI for continued treatment Assessment & Plan (03/20/2023 11:07 AM RAILWAY SIGNALLING ENGINEER): - stable - continue current medication [...] prn Assessment & Plan (07/15/2019 11:44 AM RAILWAY SIGNALLING ENGINEER): - stable - continue bentyl and [...] medication Assessment & Plan (07/15/2019 11:44 AM RAILWAY SIGNALLING ENGINEER): - stable - continue creon Annual [...] able Assessment & Plan (07/15/2019 11:46 AM RAILWAY SIGNALLING ENGINEER): - encourage healthy diet, exercise - check labs - encouraged quitting smoking Enteritis 02/18/2019 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 Assessment & Plan (07/15/2019 11:37 AM RAILWAY SIGNALLING ENGINEER): - encouraged pt to quit smoking [...] GI Assessment & Plan (03/20/2023 11:07 AM RAILWAY SIGNALLING ENGINEER): - stable - continue current medication [...] 0511/2023 Assessment & Plan (03/20/2023 11:08 AM RAILWAY SIGNALLING ENGINEER): - stable off meds - will [...] 09/25/2023 Assessment & Plan (03/26/2021 11:41 AM RAILWAY SIGNALLING ENGINEER): - stable today - continue current [...] lexapro Assessment & Plan (07/15/2019 11:38 AM RAILWAY SIGNALLING ENGINEER): - stable - continue current plan [...] medication Assessment & Plan (07/15/2019 11:38 AM RAILWAY SIGNALLING ENGINEER): - stable - continue omeprazole and carafate Viral illness 07/08/2019 02/12/2021 Assessment & Plan (07/09/2019 9:12 AM RAILWAY SIGNALLING ENGINEER): Medrol Dosepak as directed. Recommended Mucinex [...] CDT): - continue with crechristophe and maría elenadaivd prn Other chronic pancreatitis 09/17/2018 1 05/26/2020 Overview (09/17/2018): Added automatically from request for surgery [id number] Assessment & Plan (02/12/2021 11:23 AM CDT): - encouraged pt to f/u with new GI - continue hyoscyamine Assessment & Plan (01/01/2021 12:10 PM CDT): - continue prn oxycodone for now - discussed need to wean off of this as this is not a viable termite control representative solution - will ref to pain management [...] medication Assessment & Plan (07/15/2019 11:36 AM RAILWAY SIGNALLING ENGINEER): - controlled - continue current plan [...] CDT - 11/26/2024 4:25 AM CDT Emergency [facility] Emergency Department [address] [place] [address] Blue Warren MD Abdominal pain (Primary Dx); Nausea and vomiting, unspecified vomiting type Discharge Disposition: Discharge to home or self care 10/20/2024 DIPTI ED Outreach [facility] Accountable Care Organization [address] [place] [address] Niki Burns MA 10/19/2024 DIPTI ED Outreach [facility] Accountable Care Organization [address] [place] [address] Niki Burns MA 10/18/2024 1:45 PM CDT - 10/18/2024 7:54 PM CDT Emergency [facility] Emergency Department [address] [place] [id number] Oswaldo Burns MD Chronic abdominal pain (Primary Dx) Discharge Disposition: Discharge to home or self care 10/18/2024 DIPTI ED Outreach [address] [address] Niki Burns MA 10/14/2024 12:14 AM CDT - 10/14/2024 2:13 AM CDT Emergency [facility] Emergency Department [address] [place] [address] Enteritis (Primary Dx) Discharge Disposition: Discharge to home or self care 10/13/2024 4:36 AM CDT - 10/13/2024 10:20 AM CDT Emergency [address] [address] Rodney Mejia MD Journagan, Kevin, MD Abdominal pain (Primary Dx); History of pancreatitis; Chronic abdominal pain; Nausea and vomiting, unspecified vomiting type Discharge Disposition: Discharge to home or self care 10/08/2024 7:54 PM CDT - 10/08/2024 8:06 PM CDT Emergency [facility] Emergency Department [address] [place] [address] Chronic abdominal pain (Primary Dx) Discharge Disposition: Discharge to home or self care 10/07/2024 5:29 AM CDT - 10/07/2024 8:34 AM CDT Emergency [address] [address] Jose Francisco Harper DO Prograis, Shannon Smith, MD Abdominal pain (Primary Dx); Chronic pancreatitis, unspecified pancreatitis type (HCC) Discharge Disposition: Discharge to home or self care 10/06/2024 11:00 AM CDT Office Visit [facility] Primary Care [address] [facility] [address] [place] [phone] Td Lopez MD Abdominal pain (Primary Dx); Other chronic pancreatitis (HCC); Gastroesophageal reflux disease without esophagitis; Irritable bowel syndrome with both constipation and diarrhea 10/05/2024 IDPTI IP Outreach [address] [address] Lakshmi Garcia LPN 10/04/2024 Telephone [facility] [address] [facility] [address] [place] [address] Td Lopez MD schedule DIPTI appt 10/02/2024 9:53 PM CDT - 10/03/2024 11:39 AM CDT Hospital Encounter [facility] [address] Center [address] [place] [address] María Elena Calvo MD Medavaram, Atul, MD Sada, MD Kirk Gardner, MD Eben Abdominal pain (Primary Dx); Acute pancreatitis, unspecified complication status, unspecified pancreatitis type; Pain, dental Discharge Disposition: Discharge to home or self care 09/30/2024 5:44 PM CDT - 09/30/2024 8:58 PM CDT Emergency [facility] Emergency Department [address] [place] [address] Radha Casas DO Abdominal pain [...] drink = 0.6 oz pur e alcohol) [facility] Utilities Answer Date Recorded In the past [...] often do you attend chur ch or caodaism services? Never 08/11/2024 Do you belong to any clubs o r organizations such as yazidism groups, unions, fraternal or athletic groups, or [...] any time in the past 12 m [facility], were you homeless or living in a custodial (including now)? No 08/11/2024 Personal Safety Answer Date Recorded Have you ever been in or are you currently in a harmful physical or emotional relationship or is someone making you feel afraid or unsafe? Denies 11/25/2024 Sex and Gender Information Value Date Recorded Sex Assigned at Not on file Legal Sex Male 3:38 AM RAILWAY SIGNALLING ENGINEER Gender Identity Not on file Sexual [...] Vaccines Discontinued Medical Devices Explanted Type Area Temperature Logging Operator Device Identifier Shelf Expiration Date Model / Serial / Lot Par[employer] Inc [id number] Connell Flexi-Stent 7fr 5cm Small Pigtail Flexible .035in Stent - [id number] Implanted:Qty: 1 on 09/18/2018 by Vimal Woodruff MD at [facility] Explanted:Qty: 1 on 09/20/2018 at [facility] Stent N/A: Pancreas [employer] 06/10/2023 [id number] / / [id number] nanoMRmed Gina [id number] Blachly Viabil 10mm 8.5fr 6cm 200cm Fully Covered Self Expand Pull - [id number] - [id number] Implanted:Qty: 1 on 09/18/2018 by Vimal Woodruff MD at [facility] Explanted:Qty: 1 on 09/20/2018 at [facility] Stent N/A: Bile Duct Conmed Gina 06/29/2021 [id number] / [id number] / [employer] Connell Flexi-Stent 7fr 9cm Small Pigtail Flexible .035in Stent [id number] - [id number] Implanted:Qty: 1 on 02/07/2022 by Vimal Woodruff MD at [facility] Explanted:Qty: 1 on 02/10/2022 by Vimal Woodruff MD at [facility] Stent N/A: Pancreas [employer] 09/07/2026 [id number] / / [id number] [employer] Gina Wallflex 10mm X 60mm Fully Covered Biliary [id number] - [id number] Implanted:Qty: 1 on 02/07/2022 by Vimal Woodruff MD at [facility] Explanted:Qty: 1 on 02/10/2022 by Vimal Woodruff MD at [facility] Stent N/A: Bile Duct [employer] Gina 11/04/2023 [id number] / / [id number] [employer] Connell Flexi-Stent 7fr 9cm Small Pigtail Flexible .035in Stent 6575 - [id number] Implanted:Qty: 1 on 09/21/2023 by Vimal Woodruff MD at [facility] Explanted:Qty: 1 on 09/23/2023 by Vimal Woodruff MD at [facility] Stent N/A: Pancreas [employer] 03/11/2028 [id number] / / [id number] Description:Not present at eginning of case. Self migrated out [employer] Gina Wallflex 10mm X 60mm Fully Covered Biliary [id number] - [id number] Implanted:Qty: 1 on 09/21/2023 by Vimal Woodruff MD at [facility] Explanted:Qty: 1 on 09/23/2023 by Vimal Woodruff MD at [facility] Stent N/A: Bile Duct Agent Ace Gina 08/02/2025 [id number] / / [id number] Procedures Procedure Name Priority Date/Time Associated Diagnosis [...] clear. Heart size normal. No effusion. LIVER/BILIARY: Ytqy-hb-oruvkpxq steatosis. Unchanged pneumobilia. GALLBLADDER: Absent. SPLEEN: Normal. [...] Aryan Jovel M.D. AR: GIOVANNA Report ID: [id number] Reading Location: [id number] Procedure Note Aryan Jovel MD - 11/26/2024 [...] clear. Heart size normal. No effusion. LIVER/BILIARY: Hklq-qo-sxilmmwu steatosis. Unchanged pneumobilia. GALLBLADDER: Absent. SPLEEN: Normal. [...] Aryan Jovel M.D. AR: GIOVANNA Report ID: [id number] Reading Location: [place] [address] us Blue Warren MD IMG CT PROCEDURES F inal Result * Troponin T high-sensitivity 2-hour (11/26/2024 1:13 AM CDT) Trop T hs 8 <=22 ng/L Comment: Interpretive Data For further hscTnT resources including the diagnostic algorithm and an aid in interpretation, copy and paste this link: https://nrl.testcatalog.org/show/hsTrop Current Interpretive Data last revised 2020. Testing performed by: [address] [address] Trop T hs delta -3 ng/L NEEL SMITH Comment:Testing performed by : [address] [address] Trop T hs interp Insignificant NEEL SMITH Comment:Testing performed by : [address] [address] Blood 11/26/2024 1:13 AM CDT 11/26/2024 1:25 AM CDT us Blue Warren MD LAB BLOOD ORDERABLE S Final Result NEEL [address] [facility] Department [place] [address] * Urinalysis reflex to microscopic and culture Urine (11/25/2024 11:13 PM CDT) Color, ur Yellow Yellow Comment:Testing performed by : [address] [address] Clarity, ur Clear Clear NEEL SMITH Comment:Testing performed by : [address] [address] Specific gravity, ur 1.020 1.003 - 1.030 NEEL SMITH Comment:Testing performed by : [facility], [address] [place] [address], [place]., [address] pH, urine 6.0 NEEL Comment: Interpretive Data U rine pH is affected by diet, medications, systemic acid-base disturbances, and renal tubular function. pH may affect urinary stone formation. For example, urine pH below 6.0 may help reduce the tendency for calcium phosphate stones and pH greater than 6.0 may reduce the tendency for uric acid stone formation. Source: [facility] Current Interpretive Data was last revised on 2017 Testing performed by: [facility], [address] [place] [address], [place]., [address] Protein, ur ql Negative Negative NEEL Comment:Testing performed by : [address] [address] Glucose, ur ql Negative Negative NEEL Comment:Testing performed by : [address], [place]., [address] Ketones, ur Negative Negative NEEL Comment:Testing performed by : [address], [place]., [address] Bilirubin, ur Negative Negative NEEL Comment:Testing performed by : [address], [place]., [address] Blood, ur Negative Negative NEEL Comment:Testing performed by : [address], [place]., [address] Urobilinogen, ur <2.0 <2.0 mg/dL NEEL Comment:Testing performed by : [address] [address] Nitrite, ur Negative Negative NEEL Comment:Testing performed by : [address], [place]., [address] Leukocyte esterase, ur Negative Negative NEEL Comment:Testing performed by : [address], [place]., [address] UA reflex comment Reflex conditions for microscopic UA and culture not met. NEEL Comment:Testing performed by : [address], [place]., [address] Urine 11/25/2024 11:1 3 PM CDT 11/25/2024 11:24 PM CDT us Blue Warren MD LAB MICROBIOLOGY - GENERAL ORDERABLES Final Result Performing Organization Address City/[facility] Co de Phone Number NEEL [facility] Department [place] [address] * Troponin T high-sensitivity series (baseline, 2hr, 4hr, 6hr) (11/25/2024 11:06 PM CDT) Trop T hs 11 <=22 ng/L Comment: Interpretive Data For further hscTnT resources including the diagnostic algorithm and an aid in interpretation, copy and paste this link: https://nrl.testcatalog.org/show/hsTrop Current Interpretive Data last revised 2020. Testing performed by: [facility], [address] [place] [address]., [address] Blood 11/25/2024 11:0 6 PM CDT 11/25/2024 11:24 PM CDT us Blue Warren MD LAB BLOOD ORDERABLE S Final Result Performing Organization Address [facility] Co de Phone Number NEEL [address] [place] [address] * eGFR (11/25/2024 11:06 PM CDT) eGFR [...] was last reviewed 2021. Testing performed by: [address] [address] Blood 11/25/2024 11:0 6 PM CDT 11/25/2024 11:24 PM CDT us Blue Warren MD LAB BLOOD ORDERABLE S Final Result [place] [id number] [facility] Department [place] [address] * (ABNORMAL) Differential, auto (11/25/2024 11:06 PM CDT) Neutrophil abs 13.59(H) 1.50 - 6.50 K/cumm Comment:Testing performed by : [address] [address] Imm gran abs 0.11(H) 0.00 - 0.10 K/cumm NEEL Comment:Testing performed by : [address] [address] Lymphocyte abs 1.24 0.80 - 3.30 K/cumm NEEL Comment:Testing performed by : [address] [address] Monocyte abs 0.90(H) 0.20 - 0.80 K/cumm NEEL Comment:Testing performed by : [address] [address] Eosinophil abs 0.02 0.00 - 0.50 K/cumm NEEL Comment:Testing performed by : [address] [address] Basophil abs 0.05 0.00 - 0.10 K/cumm NEEL Comment:Testing performed by : [address] [address] Neutrophil pct 85.4 % NEEL Comment: Interpretive Data Percent cell count reference ranges are not reported, since discordance with absolute values may lead to misinterpretation of CBC data. Current Interpretive Data was last revised on 2017. Testing performed by: [address] [address] Imm gran pct 0.7 % [facility] Comment: Interpretive Data Percent cell count reference ranges are not reported, since discordance with absolute values may lead to misinterpretation of CBC data. Current Interpretive Data was last revised on 2017. Testing performed by: [address] [address] Lymphocyte pct 7.8 % [facility] Comment: Interpretive Data Percent cell count reference ranges are not reported, since discordance with absolute values may lead to misinterpretation of CBC data. Current Interpretive Data was last revised on 2017. Testing performed by: [address] [address] Monocyte pct 5.7 % [facility] Comment: Interpretive Data Percent cell count reference ranges are not reported, since discordance with absolute values may lead to misinterpretation of CBC data. Current Interpretive Data was last revised on 2017. Testing performed by: [address] [address] Eosinophil pct 0.1 % [facility] Comment: Interpretive Data Percent cell count reference ranges are not reported, since discordance with absolute values may lead to misinterpretation of CBC data. Current Interpretive Data was last revised on 2017. Testing performed by: [address] [address] Basophil pct 0.3 % [facility] Comment: Interpretive Data Percent cell count reference ranges are not reported, since discordance with absolute values may lead to misinterpretation of CBC data. Current Interpretive Data was last revised on 2017. Testing performed by: [address] [address] Blood 11/25/2024 11:0 6 PM CDT 11/25/2024 11:24 PM CDT us Blue Warren MD LAB BLOOD ORDERABLE S Final Result NEEL [address] [facility] Department [place] [address] * (ABNORMAL) CBC with auto differential (11/25/2024 11:06 PM CDT) WBC 15.91(H) 3.80 - 9.90 K/cumm Comment:Testing performed by : [address] [address] Hgb 15.1 13.0 - 17.5 g/dL NEEL Comment:Testing performed by : [address] [address] Hct 44.2 38.9 - 50.3 % NEEL Comment:Testing performed by : [address] [address] Plt 300 150 - 400 K/cumm NEEL Comment:Testing performed by : [address] [address] MPV 9.7 9.1 - 12.3 fL NEEL Comment:Testing performed by : [address] [address] RBC 5.26 4.30 - 5.80 M/cumm NEEL Comment:Testing performed by : [address] [address] MCV 84.0 81.3 - 96.4 fL NEEL Comment:Testing performed by : [address] [address] MCH 28.7 27.1 - 33.3 pg NEEL Comment:Testing performed by : [address] [address] MCHC 34.2 32.3 - 35.7 g/dL NEEL Comment:Testing performed by : [address] [address] RDW CV 15.2(H) 11.1 - 14.9 % NEEL Comment:Testing performed by : [address] [address] RDW SD 46.3 35.7 - 48.1 fL NEEL Comment:Testing performed by : [address] [address] NRBC abs 0.00 0.00 - 0.01 K/cumm NEEL SMITH Comment:Testing performed by : [address] [address] Blood Venous blood specimen / Unknown 11/25/2024 11:06 PM CDT 11/25/2024 11:24 PM CDT Blue Warren MD LAB BLOOD ORDERABLE S Final Result Performing Organization Address City/[facility]/ZIP Co de Phone Number [address] [place] [address] * Lipase (11/25/2024 11:06 PM CDT) Pathologist [facility] Lipase 24 10 - 99 Units/L Comment:Testing performed by : [address] [address] Blood Venous blood specimen / Unknown 11/25/2024 11:06 PM CDT 11/25/2024 11:24 PM CDT Blue Warren MD LAB BLOOD ORDERABLE S Final Result Performing Organization Address City/[facility] Co de Phone Number [address] [place] [address] * (ABNORMAL) Comprehensive metabolic panel (11/25/2024 11:06 PM CDT) Sodium 140 135 - 145 mmol/L Comment:Testing performed by : [address] [address] Potassium, pl 4.1 3.3 - 4.9 mmol/L NEEL SMITH Comment:Testing performed by : [address] [address] Chloride 102 97 - 110 mmol/L NEEL SMITH Comment:Testing performed by : [address] [address] CO2 24 22 - 32 mmol/L NEEL SMITH Comment:Testing performed by : [address] [address] Anion gap 14 2 - 15 mmol/L NEEL Comment:Testing performed by : [address] [address] BUN 10 6 - 25 mg/dL NEEL Comment:Testing performed by : [address], [place]., [address] Creatinine 1.01 0.80 - 1.30 mg/dL NEEL Comment:Testing performed by : [address] [address] Glucose 115 70 - 199 mg/dL NEEL [...] was last revised 2022. Testing performed by: [address] [address] Calcium 10.5(H) 8.5 - 10.3 mg/dL NEEL Comment:Testing performed by : [address] [address] Bilirubin, total 0.4 0.1 - 1.2 mg/dL NEEL Comment:Testing performed by : [address] [address] Protein, pl 7.4 6.5 - 8.5 g/dL NEEL Comment:Testing performed by : [address] [address] Albumin 4.5 3.5 - 5.0 g/dL NEEL Comment:Testing performed by : [address] [address] Alk phos 89 40 - 130 Units/L NEEL Comment:Testing performed by : [address] [address] ALT 19 7 - 55 Units/L NEEL Comment:Testing performed by : [address] [address] AST 21 10 - 50 Units/L NEEL Comment:Testing performed by : [address] [address] Blood 11/25/2024 11:0 6 PM CDT 11/25/2024 11:24 PM CDT us Blue Warren MD LAB BLOOD ORDERABLE S Final Result Performing Organization Address City/[facility]/ZIP Co de Phone Number [facility] [address] [facility] Department [place] [address] * ECG 12 lead (11/25/2024 11:02 PM CDT) Pathologist [facility] Ventricular Rate EKG/Min 74 BPM [facility] Atrial Rate 74 BPM [facility] NE-Interval (MSEC) 80 ms [facility] QRS-Interval (MSEC) 96 ms [facility] QT-Interval (MSEC) 354 ms [facility] QTc 392 ms [facility] P [place] -18 degrees [facility] R [place] 32 degrees [facility] T [place] 56 degrees [facility] Diagnosis Sinus rhythm with sinus arrhythmia with short NE Otherwise normal ECG When compared with ECG of 13-OCT-2024 03:54, No significant change was found Confirmed by DARIEL CARLOS M.D. ([id number]) on 11/26/2024 10:02:21 PM [facility] 11/25/2024 11:0 2 PM CDT 11/26/2024 10:02 PM CDT us Blue Warren MD ECG ORDERABLES Fin al Result Performing Organization Address City/[facility]/ZIP Co de Phone Number [facility] * CT Abdomen Pelvis W [...] ur Yellow Yellow Clarity, ur Turbid(A) Clear [facility] Specific gravity, ur 1.014 1.003 - 1.030 [facility] pH, urine 7.5 [facility] Comment: Interpretive Data U rine pH is affected by diet, medications, systemic acid-base disturbances, and renal tubular function. pH may affect urinary stone formation. For example, urine pH below 6.0 may help reduce the tendency for calcium phosphate stones and pH greater than 6.0 may reduce the tendency for uric acid stone formation. Source: [facility] Current Interpretive Data was last revised on 2017 Protein, ur ql Trace Negative [facility] Glucose, ur ql Negative Negative [facility] Ketones, ur 1+(A) Negative [facility] Bilirubin, ur Negative Negative [facility] Blood, ur Negative Negative [facility] Urobilinogen, ur <2.0 <2.0 mg/dL [facility] Nitrite, ur Negative Negative [facility] Leukocyte esterase, ur Negative Negative [facility] UA reflex comment Reflex conditions for microscopic UA and culture not met. [facility] Urine 10/18/2024 3:34 PM CDT 10/18/2024 3:34 PM CDT Oswaldo Burns MD LAB MICROBIOLOGY - GENERAL ORDERABLES Final Result [facility] [address] Department [place] [address] * eGFR (10/18/2024 12:[address]) [facility] eGFR >90 >=60 mL/min/1. 73 m2 Comment: [...] MD LAB BLOOD ORDERABLES Final R esult [facility] [address] Department [place] [address] * (ABNORMAL) Differential, auto (10/18/2024 12:48 PM CDT) [facility] Neutrophil abs 12.53(H) 1.50 - 6.50 K/cumm Imm gran abs 0.08 0.00 - 0.10 K/cumm [facility] Lymphocyte abs 1.17 0.80 - 3.30 K/cumm [facility] Monocyte abs 1.45(H) 0.20 - 0.80 K/cumm [facility] Eosinophil abs 0.07 0.00 - 0.50 K/cumm [facility] Basophil abs 0.07 0.00 - 0.10 K/cumm [facility] Neutrophil pct 81.5 % [facility] Comment: Interpretive Data Percent cell count reference ranges are not reported, since discordance with absolute values may lead to misinterpretation of CBC data. Current Interpretive Data was last revised on 2017. Imm gran pct 0.5 % [facility] Comment: Interpretive Data Percent cell count reference ranges are not reported, since discordance with absolute values may lead to misinterpretation of CBC data. Current Interpretive Data was last revised on 2017. Lymphocyte pct 7.6 % [facility] Comment: Interpretive Data Percent cell count reference ranges are not reported, since discordance with absolute values may lead to misinterpretation of CBC data. Current Interpretive Data was last revised on 2017. Monocyte pct 9.4 % [facility] Comment: Interpretive Data Percent cell count reference ranges are not reported, since discordance with absolute values may lead to misinterpretation of CBC data. Current Interpretive Data was last revised on 2017. Eosinophil pct 0.5 % [facility] Comment: Interpretive Data Percent cell count reference ranges are not reported, since discordance with absolute values may lead to misinterpretation of CBC data. Current Interpretive Data was last revised on 2017. Basophil pct 0.5 % [facility] Comment: Interpretive Data Percent cell count reference ranges are not reported, since discordance with absolute values may lead to misinterpretation of CBC data. Current Interpretive Data was last revised on 2017. Blood 10/18/2024 12:4 8 PM CDT 10/18/2024 1:27 PM CDT Oswaldo Burns MD LAB BLOOD ORDERABLES Final Result [facility] [address] Department [place] [address] * (ABNORMAL) CBC with auto differential (10/18/2024 12:48 PM CDT) WBC 15.37(H) 3.80 - 9.90 K/cumm Hgb 14.6 13.0 - 17.5 g/dL [facility] Hct 43.2 38.9 - 50.3 % [facility] Plt 353 150 - 400 K/cumm [facility] MPV 10.0 9.1 - 12.3 fL [facility] RBC 5.10 4.30 - 5.80 M/cumm [facility] MCV 84.7 81.3 - 96.4 fL [facility] MCH 28.6 27.1 - 33.3 pg [facility] MCHC 33.8 32.3 - 35.7 g/dL [facility] RDW CV 15.8(H) 11.1 - 14.9 % [facility] RDW SD 48.2(H) 35.7 - 48.1 fL [facility] NRBC abs 0.00 0.00 - 0.01 K/cumm [facility] Blood Venous blood specimen / Unknown 10/18/2024 12:48 PM CDT 10/18/2024 1:27 PM CDT Oswaldo Burns MD LAB BLOOD ORDERABLES Final Result Performing Organization Address [facility] Co de Phone Number [facility] [address] [place] [address] * Lipase (10/18/2024 12:48 PM CDT) [facility] Lipase 36 10 - 99 Units/L Blood Venous blood specimen / Unknown 10/18/2024 12:48 PM CDT 10/18/2024 1:27 PM CDT Oswaldo Burns MD LAB BLOOD ORDERABLES Final Result Performing Organization Address [facility] de Phone Number [facility] [address] Department [place] [address] * (ABNORMAL) Comprehensive metabolic panel (10/18/2024 12:48 PM CDT) [facility] Sodium 141 135 - 145 mmol/L Potassium, pl 3.8 3.3 - 4.9 mmol/L [facility] Chloride 103 97 - 110 mmol/L [facility] CO2 22 22 - 32 mmol/L [facility] Anion gap 16(H) 2 - 15 mmol/L [facility] BUN 9 6 - 25 mg/dL [facility] Creatinine 1.01 0.80 - 1.30 mg/dL [facility] Glucose 132 70 - 199 mg/dL [facility] Comment: Interpretive Data Fasting glucose >/= 126 [...] 2022. Calcium 9.8 8.5 - 10.3 mg/dL [facility] Bilirubin, total 0.7 0.1 - 1.2 mg/dL [facility] Protein, pl 7.3 6.5 - 8.5 g/dL [facility] Albumin 4.4 3.5 - 5.0 g/dL [facility] Alk phos 83 40 - 130 Units/L [facility] ALT 22 7 - 55 Units/L [facility] AST 28 10 - 50 Units/L [facility] Blood 10/18/2024 12:4 8 PM CDT 10/18/2024 1:27 PM CDT Oswaldo Burns MD LAB BLOOD ORDERABLES Final Result [facility] [address] Department [place] [address] * Lipase - Add on lab test (10/14/2024 4:29 AM CDT) Acceptable Yes Blood 10/14/2024 4:29 AM CDT 10/14/2024 4:29 AM CDT Narrative [facility] - 10/14/2024 4:30 AM CDT Name of Test->Lipase us Yusef Bear MD LAB BLOOD ORDERABLES Final Result [facility] [address] Department [place] [address] * CT Abdomen Pelvis W Contrast (10/14/2024 1:38 AM CDT) Anatomical Region Laterality Modality Body N/A Computed Tomogra phy 10/14/2024 1:29 AM CDT Impressions 10/14/2024 9:11 AM CDT No acute abnormality in the abdomen or pelvis. No pancreatitis. For the purposes of quality supervisor, this study was initially interpreted by teleradiology. [...] No pancreatitis. For the purposes of quality supervisor, this study was initially interpreted by teleradiology. [...] ur Yellow Yellow Clarity, ur Clear Clear [facility] Specific gravity, ur 1.010 1.003 - 1.030 [facility] pH, urine 6.5 [facility] Comment: Interpretive Data U rine pH is affected by diet, medications, systemic acid-base disturbances, and renal tubular function. pH may affect urinary stone formation. For example, urine pH below 6.0 may help reduce the tendency for calcium phosphate stones and pH greater than 6.0 may reduce the tendency for uric acid stone formation. Source: [facility] Current Interpretive Data was last revised on 2017 Protein, ur ql Negative Negative [facility] Glucose, ur ql Negative Negative [facility] Ketones, ur 1+(A) Negative [facility] Bilirubin, ur Negative Negative [facility] Blood, ur Negative Negative [facility] Urobilinogen, ur <2.0 <2.0 mg/dL [facility] Nitrite, ur Negative Negative [facility] Leukocyte esterase, ur Negative Negative [facility] UA reflex comment Reflex conditions for microscopic UA and culture not met. [facility] Urine 10/13/2024 10:1 0 PM CDT 10/13/2024 10:11 PM CDT us Abdiel Donaldson MD LAB MICROBIOLOGY - GENERAL O RDERABLES Final Result [facility] [address] Department [place] [address] * eGFR (10/13/2024 10:06 PM CDT) eGFR [...] MD LAB BLOOD ORDERABLES Final R esult [facility] [address] Department [place] [address] * (ABNORMAL) Differential, auto (10/13/2024 10:06 PM CDT) Neutrophil abs 11.31(H) 1.50 - 6.50 K/cumm Imm gran abs 0.06 0.00 - 0.10 K/cumm [facility] Lymphocyte abs 1.47 0.80 - 3.30 K/cumm [facility] Monocyte abs 1.09(H) 0.20 - 0.80 K/cumm [facility] Eosinophil abs 0.07 0.00 - 0.50 K/cumm [facility] Basophil abs 0.04 0.00 - 0.10 K/cumm [facility] Neutrophil pct 80.5 % [facility] Comment: Interpretive Data Percent cell count reference ranges are not reported, since discordance with absolute values may lead to misinterpretation of CBC data. Current Interpretive Data was last revised on 2017. Imm gran pct 0.4 % [facility] Comment: Interpretive Data Percent cell count reference ranges are not reported, since discordance with absolute values may lead to misinterpretation of CBC data. Current Interpretive Data was last revised on 2017. Lymphocyte pct 10.5 % [facility] Comment: Interpretive Data Percent cell count reference ranges are not reported, since discordance with absolute values may lead to misinterpretation of CBC data. Current Interpretive Data was last revised on 2017. Monocyte pct 7.8 % [facility] Comment: Interpretive Data Percent cell count reference ranges are not reported, since discordance with absolute values may lead to misinterpretation of CBC data. Current Interpretive Data was last revised on 2017. Eosinophil pct 0.5 % [facility] Comment: Interpretive Data Percent cell count reference ranges are not reported, since discordance with absolute values may lead to misinterpretation of CBC data. Current Interpretive Data was last revised on 2017. Basophil pct 0.3 % [facility] Comment: Interpretive Data Percent cell count reference ranges are not reported, since discordance with absolute values may lead to misinterpretation of CBC data. Current Interpretive Data was last revised on 2017. Blood 10/13/2024 10:0 6 PM CDT 10/13/2024 10:43 PM CDT Abdiel Donaldson MD LAB BLOOD ORDERABLES Final R esult Performing Organization Address [facility]/ZIP Co de Phone Number [facility] [address] [place] [address] * (ABNORMAL) CBC with auto differential (10/13/2024 10:06 PM CDT) WBC 14.04(H) 3.80 - 9.90 K/cumm Hgb 14.1 13.0 - 17.5 g/dL [facility] Hct 43.6 38.9 - 50.3 % [facility] Plt 312 150 - 400 K/cumm [facility] MPV 10.3 9.1 - 12.3 fL [facility] RBC 5.01 4.30 - 5.80 M/cumm [facility] MCV 87.0 81.3 - 96.4 fL [facility] MCH 28.1 27.1 - 33.3 pg [facility] MCHC 32.3 32.3 - 35.7 g/dL [facility] RDW CV 15.6(H) 11.1 - 14.9 % [facility] RDW SD 49.1(H) 35.7 - 48.1 fL [facility] NRBC abs 0.00 0.00 - 0.01 K/cumm [facility] Blood Venous blood specimen / Unknown 10/13/2024 10:06 PM CDT 10/13/2024 10:43 PM CDT Abdiel Donaldson MD LAB BLOOD ORDERABLES Final R esult Performing Organization Address City/[facility]/ZIP Co de Phone Number [facility] [address] Department [place] [address] * (ABNORMAL) Lipase (10/13/2024 10:06 PM CDT) Pathologist [facility] Lipase 119(H) 10 - 99 Units/L Blood 10/13/2024 10:0 6 PM CDT 10/13/2024 10:43 PM CDT Abdiel Donaldson MD LAB BLOOD ORDERABLES Final R esult [facility] [address] Department [place] [address] * (ABNORMAL) Comprehensive metabolic panel (10/13/2024 10:06 PM CDT) Pathologist [facility] Sodium 144 135 - 145 mmol/L Potassium, pl 3.7 3.3 - 4.9 mmol/L [facility] Chloride 104 97 - 110 mmol/L [facility] CO2 22 22 - 32 mmol/L [facility] Anion gap 18(H) 2 - 15 mmol/L [facility] BUN 7 6 - 25 mg/dL [facility] Creatinine 0.91 0.80 - 1.30 mg/dL [facility] Glucose 95 70 - 199 mg/dL [facility] Comment: Interpretive Data Fasting glucose >/= 126 [...] 2022. Calcium 9.3 8.5 - 10.3 mg/dL [facility] Bilirubin, total 0.4 0.1 - 1.2 mg/dL [facility] Protein, pl 7.0 6.5 - 8.5 g/dL [facility] Albumin 4.5 3.5 - 5.0 g/dL [facility] Alk phos 82 40 - 130 Units/L [facility] ALT 16 7 - 55 Units/L [facility] AST 19 10 - 50 Units/L [facility] Blood Venous blood specimen / Unknown 10/13/2024 10:06 PM CDT 10/13/2024 10:43 PM CDT Abdiel Donaldson MD LAB BLOOD ORDERABLES Final R esult Performing Organization Address City/[facility] Co de Phone Number [facility] [address] Department [place] [address] * ECG 12 lead (10/13/2024 9:51 PM CDT) 10/13/2024 9:51 PM CDT Narrative [facility] - 10/14/2024 9:31 AM CDT Vent Rate: 68 bpm RR Interval: 880 msec NE Interval: 129 msec QRS Duration: 113 msec QT Interval: 357 msec QTC Interval: 374 msec P-R-T [place]: 26 - 53 - 61 degrees IMPRESSION: SINUS RHYTHM WITH A BORDERLINE SHORT NE INTERVAL WITH MARKED SINUS ARRHYTHMIA INCOMPLETE RIGHT BUNDLE-BRANCH BLOCK BORDERLINE ECG Electronically Signed By: Calvin Sanabria MD [employer] Jose Francisco Jessica MD ECG ORDERABLES Final Resu lt Performing Organization Address [facility] de Phone Number [facility] [employer] [facility] * (ABNORMAL) Differential, auto (10/13/2024 7:40 AM CDT) Pathologist [facility] Neutrophil abs 12.72(H) 1.50 - 6.50 K/cumm Imm gran abs 0.06 0.00 - 0.10 K/cumm [facility] Lymphocyte abs 0.98 0.80 - 3.30 K/cumm [facility] Monocyte abs 0.59 0.20 - 0.80 K/cumm [facility] Eosinophil abs 0.01 0.00 - 0.50 K/cumm [facility] Basophil abs 0.04 0.00 - 0.10 K/cumm [facility] Neutrophil pct 88.3 % [facility] Comment: Interpretive Data Percent cell count reference ranges are not reported, since discordance with absolute values may lead to misinterpretation of CBC data. Current Interpretive Data was last revised on 2017. Imm gran pct 0.4 % [facility] Comment: Interpretive Data Percent cell count reference ranges are not reported, since discordance with absolute values may lead to misinterpretation of CBC data. Current Interpretive Data was last revised on 2017. Lymphocyte pct 6.8 % [facility] Comment: Interpretive Data Percent cell count reference ranges are not reported, since discordance with absolute values may lead to misinterpretation of CBC data. Current Interpretive Data was last revised on 2017. Monocyte pct 4.1 % [facility] Comment: Interpretive Data Percent cell count reference ranges are not reported, since discordance with absolute values may lead to misinterpretation of CBC data. Current Interpretive Data was last revised on 2017. Eosinophil pct 0.1 % [facility] Comment: Interpretive Data Percent cell count reference ranges are not reported, since discordance with absolute values may lead to misinterpretation of CBC data. Current Interpretive Data was last revised on 2017. Basophil pct 0.3 % [facility] Comment: Interpretive Data Percent cell count reference ranges are not reported, since discordance with absolute values may lead to misinterpretation of CBC data. Current Interpretive Data was last revised on 2017. Blood 10/13/2024 7:40 AM CDT 10/13/2024 7:42 AM CDT us Rodney Mejia MD LAB BLOOD ORDERABLES Fi nal Result [facility] [address] Department [place] [address] * (ABNORMAL) CBC with auto differential (10/13/2024 7:40 AM CDT) WBC 14.40(H) 3.80 - 9.90 K/cumm Hgb 13.1 13.0 - 17.5 g/dL [facility] Hct 40.8 38.9 - 50.3 % [facility] Plt 242 150 - 400 K/cumm [facility] MPV 9.9 9.1 - 12.3 fL [facility] RBC 4.61 4.30 - 5.80 M/cumm [facility] MCV 88.5 81.3 - 96.4 fL [facility] MCH 28.4 27.1 - 33.3 pg [facility] MCHC 32.1(L) 32.3 - 35.7 g/dL [facility] RDW CV 15.4(H) 11.1 - 14.9 % [facility] RDW SD 49.5(H) 35.7 - 48.1 fL [facility] NRBC abs 0.00 0.00 - 0.01 K/cumm [facility] Blood 10/13/2024 7:40 AM CDT 10/13/2024 7:42 AM CDT Narrative [facility] - 10/13/2024 7:45 AM CDT For after fluids Rodney Mejia MD LAB BLOOD ORDERABLES Fi nal Result Performing Organization Address [facility] Co de Phone Number [address] [place] [address] * Sepsis Lactate w/ Reflex (10/13/2024 4:57 AM CDT) [facility] Sepsis Lactate 1.1 0.7 - 2.0 mmol/L Blood 10/13/2024 4:57 AM CDT 10/13/2024 4:59 AM CDT Rodney Mejia MD LAB BLOOD ORDERABLES Fi nal Result Performing Organization Address [facility] de Phone Number [address] [place] [address] * (ABNORMAL) Drugs of Abuse Screen, Urine with Reflex Confirmation (10/13/2024 4:13 AM CDT) [facility] Amphetamine, ur Not Detected CutOff 500ng/mL Comment: Interpretive Data - Amphetamines: Samples containing greater than 500 ng/mL d-methamphetamine or other cross-reacting amphetamine compounds are reported as positive. Amphetamine immunoassays are subject to significant false positive rates due to cross-reactivity of non-amphetamine drugs. Confirmatory testing required for definitive results. Current Interpretive Data was last reviewed 2022. Barbiturates, ur Not Detected CutOff 200ng/mL [facility] Comment: Interpretive Data - Barbiturates: Samples containing greater than 200 ng/mL secobarbital or other cross-reacting barbiturate compounds are reported as positive. False positive and false negative results are possible. Confirmatory testing required for definitive results. Current Interpretive Data was last reviewed 2022. Benzodiazepines, ur Not Detected CutOff 100ng/mL [facility] Comment: Interpretive Data - Benzodiazepines: Samples containing greater than 100 ng/mL nordiazepam or other cross-reacting compounds are reported as positive. False positive and false negative results are possible. Confirmatory testing required for definitive results. Current Interpretive Data was last reviewed 2022. Cannabinoids, ur Screen Positive, presumptive (A) CutOff 50 ng/mL [facility] Comment: Interpretive Data - Cannabinoids: Samples containing greater than 50 ng/mL delta-9 THC -COOH or other cross- reacting compounds are reported as positive. False positive and false negative results are possible. Confirmatory testing required for definitive results. Current Interpretive Data was last reviewed 2022. Cocaine, ur Not Detected CutOff 150ng/mL [facility] Comment: Interpretive Data - Cocaine: Samples containing greater than 150 ng/mL benzoylecgonine or other cross- reacting compounds are reported as positive. False positive and false negative results are possible. Confirmatory testing required for definitive results. Current Interpretive Data was last reviewed 2022. Fentanyl, Ur Not Detected CutOff 5 ng/mL [facility] Comment: Interpretive Data - Fentanyl: Samples containing greater than 5 ng/mL norfentanyl, fentanyl, or other cross-reacting fentanyl compounds are reported as positive. False positive and false negative results are possible. Confirmatory testing required for definitive results. Current Interpretive Data was last reviewed 2023. Methadone, ur Not Detected CutOff 300ng/mL [facility] Comment: Interpretive Data - Methadone: Samples containing greater than 300 ng/mL d,l-methadone or other cross-reacting compounds are reported as positive. False positive and false negative results are possible. Confirmatory testing required for definitive results. Current Interpretive Data was last reviewed 2022. Opiates, ur Not Detected CutOff 300ng/mL [facility] Comment: Interpretive Data - Opiates: Samples containing greater than 300 ng/mL morphine or other cross-reacting compounds are reported as positive. False positive and false negative results are possible. Confirmatory testing required for definitive results. Current Interpretive Data was last reviewed 2022. Oxycodone, ur Not Detected CutOff 100ng/mL [facility] Comment: Interpretive Data - Oxycodone: Samples [...] last reviewed 2022. Urine Creatinine 90 mg/dL [facility] Comment: Interpretive Data Urine Creatinine: < 10 mg/dL is extremely dilute = or > 10 but < 20 mg/dL is dilute = or > 20 mg/dL is normal Current Interpretive Data was last revised on 2017. Urine 10/13/2024 4:13 AM CDT 10/13/2024 4:16 AM CDT Narrative [facility] - 10/13/2024 4:45 AM CDT Drug of Abuse screening is performed by immunoassay for medical purposes only. This is not to be used for Pain Management purposes. If Detected, confirmation testing will be performed for Amphetamines, Cocaine, Fentanyl, Methadone, Opiates, Oxycodone or Phencyclidine. Rodney Mejia MD LAB URINE ORDERABLES Replaced by [facility] Result NEEL [address] [facility] Department [place] [address] * Troponin T high-sensitivity series (baseline, 2hr, [...] nal Result Performing Organization Address [facility] Co de Phone Number NEEL [address] [place] [address] * eGFR (10/13/2024 4:08 AM CDT) eGFR [...] ORDERABLES Fi nal Result Performing Organization Address City/[facility]/ZIP Co de Phone Number NEEL [address] Department [place] [address] * (ABNORMAL) Differential, auto (10/13/2024 4:08 AM CDT) Pathologist [facility] Neutrophil abs 12.87(H) 1.50 - 6.50 K/cumm Imm gran abs 0.09 0.00 - 0.10 K/cumm [facility] Lymphocyte abs 2.58 0.80 - 3.30 K/cumm [facility] Monocyte abs 1.61(H) 0.20 - 0.80 K/cumm [facility] Eosinophil abs 0.19 0.00 - 0.50 K/cumm [facility] Basophil abs 0.07 0.00 - 0.10 K/cumm [facility] Neutrophil pct 74.0 % [facility] Comment: Interpretive Data Percent cell count reference ranges are not reported, since discordance with absolute values may lead to misinterpretation of CBC data. Current Interpretive Data was last revised on 2017. Imm gran pct 0.5 % [facility] Comment: Interpretive Data Percent cell count reference ranges are not reported, since discordance with absolute values may lead to misinterpretation of CBC data. Current Interpretive Data was last revised on 2017. Lymphocyte pct 14.8 % [facility] Comment: Interpretive Data Percent cell count reference ranges are not reported, since discordance with absolute values may lead to misinterpretation of CBC data. Current Interpretive Data was last revised on 2017. Monocyte pct 9.2 % [facility] Comment: Interpretive Data Percent cell count reference ranges are not reported, since discordance with absolute values may lead to misinterpretation of CBC data. Current Interpretive Data was last revised on 2017. Eosinophil pct 1.1 % [facility] Comment: Interpretive Data Percent cell count reference ranges are not reported, since discordance with absolute values may lead to misinterpretation of CBC data. Current Interpretive Data was last revised on 2017. Basophil pct 0.4 % [facility] Comment: Interpretive Data Percent cell count reference ranges are not reported, since discordance with absolute values may lead to misinterpretation of CBC data. Current Interpretive Data was last revised on 2017. Blood 10/13/2024 4:08 AM CDT 10/13/2024 4:16 AM CDT Rodney Mejia MD LAB BLOOD ORDERABLES Fi nal Result Performing Organization Address [facility] Co de Phone Number NEEL SMITH [address] [place] [id number] * (ABNORMAL) Urinalysis reflex to microscopic and culture Urine (10/13/2024 4:08 AM CDT) Color, ur Yellow Yellow Clarity, ur Cloudy(A) Clear [facility] Specific gravity, ur 1.013 1.003 - 1.030 [facility] pH, urine 7.5 [facility] Comment: Interpretive Data U rine pH is affected by diet, medications, systemic acid-base disturbances, and renal tubular function. pH may affect urinary stone formation. For example, urine pH below 6.0 may help reduce the tendency for calcium phosphate stones and pH greater than 6.0 may reduce the tendency for uric acid stone formation. Source: [facility] Current Interpretive Data was last revised on 2017 Protein, ur ql Negative Negative [facility] Glucose, ur ql Negative Negative [facility] Ketones, ur Negative Negative [facility] Bilirubin, ur Negative Negative [facility] Blood, ur Negative Negative [facility] Urobilinogen, ur <2.0 <2.0 mg/dL [facility] Nitrite, ur Negative Negative [facility] Leukocyte esterase, ur Negative Negative [facility] UA reflex comment Reflex conditions for microscopic UA and culture not met. [facility] Urine 10/13/2024 4:08 AM CDT 10/13/2024 4:16 AM CDT Rodney Mejia MD LAB MICROBIOLOGY - GENE RAL ORDERABLES Final Result Performing Organization Address [facility] Co de Phone Number NEEL [address] [place] [address] * (ABNORMAL) CBC with auto differential (10/13/2024 4:08 AM CDT) WBC 17.41(H) 3.80 - 9.90 K/cumm Hgb 13.8 13.0 - 17.5 g/dL [facility] Hct 41.2 38.9 - 50.3 % [facility] Plt 291 150 - 400 K/cumm [facility] MPV 9.9 9.1 - 12.3 fL [facility] RBC 4.87 4.30 - 5.80 M/cumm [facility] MCV 84.6 81.3 - 96.4 fL [facility] MCH 28.3 27.1 - 33.3 pg [facility] MCHC 33.5 32.3 - 35.7 g/dL [facility] RDW CV 15.4(H) 11.1 - 14.9 % [facility] RDW SD 46.5 35.7 - 48.1 fL [facility] NRBC abs 0.00 0.00 - 0.01 K/cumm [facility] Blood Venous blood specimen / Unknown 10/13/2024 4:08 AM CDT 10/13/2024 4:16 AM CDT Rodney Mejia MD LAB BLOOD ORDERABLES Fi nal Result Performing Organization Address City/[facility] Co de Phone Number [address] [place], [place] [id number] * (ABNORMAL) Lipase (10/13/2024 4:08 AM CDT) Pathologist [facility] Lipase 270(H) 10 - 99 Units/L Blood Venous blood specimen / Unknown 10/13/2024 4:08 AM CDT 10/13/2024 4:16 AM CDT Rodney Mejia MD LAB BLOOD ORDERABLES Fi nal Result Performing Organization Address City/[facility] Co de Phone Number [address] [place] [address] * Comprehensive metabolic panel (10/13/2024 4:08 AM CDT) Pathologist [facility] Sodium 141 135 - 145 mmol/L Potassium, pl 3.8 3.3 - 4.9 mmol/L [facility] Chloride 104 97 - 110 mmol/L [facility] CO2 22 22 - 32 mmol/L [facility] Anion gap 15 2 - 15 mmol/L [facility] BUN 12 6 - 25 mg/dL [facility] Creatinine 1.13 0.80 - 1.30 mg/dL [facility] Glucose 110 70 - 199 mg/dL [facility] Comment: Interpretive Data Fasting glucose >/= [...] 2022. Calcium 9.2 8.5 - 10.3 mg/dL [facility] Bilirubin, total 0.3 0.1 - 1.2 mg/dL [facility] Protein, pl 6.8 6.5 - 8.5 g/dL [facility] Albumin 4.2 3.5 - 5.0 g/dL [facility] Alk phos 77 40 - 130 Units/L [facility] ALT 15 7 - 55 Units/L [facility] AST 19 10 - 50 Units/L [facility] Blood 10/13/2024 4:08 AM CDT 10/13/2024 4:16 AM CDT us Rodney Mejia MD LAB BLOOD ORDERABLES nal Result [facility] [address] [facility] Department [place] [address] * ECG 12 lead (10/13/2024 3:54 AM CDT) Ventricular Rate EKG/Min 66 BPM [facility] Atrial Rate 66 BPM [facility] NE-Interval (MSEC) 86 ms [facility] QRS-Interval (MSEC) 100 ms [facility] QT-Interval (MSEC) 376 ms [facility] QTc 394 ms [facility] P [place] 3 degrees [facility] R [place] 45 degrees [facility] T [place] 52 degrees [facility] Diagnosis Sinus rhythm with short NE Incomplete right bundle branch block Confirmed by HOLLAND MELGAR M.D. ([id number]) on 10/13/2024 9:29:09 AM [facility] 10/13/2024 3:54 AM CDT 10/13/2024 9:29 AM CDT us Rodney Mejia MD ECG ORDERABLES Final R esult [facility] * eGFR (10/08/2024 7:25 PM [...] was last reviewed 2021. Testing performed by: [facility], [address] [place] [address]., [id number] Blood 10/08/2024 7:25 PM CDT 10/08/2024 7:29 PM CDT us Lilliana LAWTON LAB BLOOD ORDERABLES Final Result NEEL [address] [facility] Department [place] [address] * (ABNORMAL) Differential, auto (10/08/2024 7:25 PM CDT) Neutrophil abs 5.02 1.50 - 6.50 K/cumm Comment:Testing performed by : [address] [address] Imm gran abs 0.04 0.00 - 0.10 K/cumm NEEL Comment:Testing performed by : [address] [address] Lymphocyte abs 3.13 0.80 - 3.30 K/cumm [facility] Comment:Testing performed by : [address] [address] Monocyte abs 1.11(H) 0.20 - 0.80 K/cumm [facility] Comment:Testing performed by : [address] [address] Eosinophil abs 0.10 0.00 - 0.50 K/cumm [facility] Comment:Testing performed by : [address] [address] Basophil abs 0.06 0.00 - 0.10 K/cumm [facility] Comment:Testing performed by : [address] [address] Neutrophil pct 53.1 % [facility] Comment: Interpretive Data Percent cell count reference ranges are not reported, since discordance with absolute values may lead to misinterpretation of CBC data. Current Interpretive Data was last revised on 2017. Testing performed by: [address] [address] Imm gran pct 0.4 % [facility] Comment: Interpretive Data Percent cell count reference ranges are not reported, since discordance with absolute values may lead to misinterpretation of CBC data. Current Interpretive Data was last revised on 2017. Testing performed by: [address] [address] Lymphocyte pct 33.1 % [facility] Comment: Interpretive Data Percent cell count reference ranges are not reported, since discordance with absolute values may lead to misinterpretation of CBC data. Current Interpretive Data was last revised on 2017. Testing performed by: [address] [address] Monocyte pct 11.7 % NEEL Comment: Interpretive Data Percent cell count reference ranges are not reported, since discordance with absolute values may lead to misinterpretation of CBC data. Current Interpretive Data was last revised on 2017. Testing performed by: [address] [address] Eosinophil pct 1.1 % NEEL Comment: Interpretive Data Percent cell count reference ranges are not reported, since discordance with absolute values may lead to misinterpretation of CBC data. Current Interpretive Data was last revised on 2017. Testing performed by: [address] [address] Basophil pct 0.6 % NEEL Comment: Interpretive Data Percent cell count reference ranges are not reported, since discordance with absolute values may lead to misinterpretation of CBC data. Current Interpretive Data was last revised on 2017. Testing performed by: [address] [address] Blood 10/08/2024 7:25 PM CDT 10/08/2024 7:29 PM CDT Lilliana LAWTON LAB BLOOD ORDERABLES Final Result [facility] [address] [facility] Department [place] [address] * (ABNORMAL) CBC with auto differential (10/08/2024 7:25 PM CDT) WBC 9.46 3.80 - 9.90 K/cumm Comment:Testing performed by : [address] [address] Hgb 15.0 13.0 - 17.5 g/dL NEEL Comment:Testing performed by : [address] [address] Hct 44.6 38.9 - 50.3 % NEEL Comment:Testing performed by : [address] [address] Plt 321 150 - 400 K/cumm NEEL Comment:Testing performed by : [address] [address] MPV 10.0 9.1 - 12.3 fL NEEL SMITH Comment:Testing performed by : [address] [address] RBC 5.38 4.30 - 5.80 M/cumm NEEL SMITH Comment:Testing performed by : [address] [address] MCV 82.9 81.3 - 96.4 fL NEEL Comment:Testing performed by : [address] [address] MCH 27.9 27.1 - 33.3 pg NEEL Comment:Testing performed by : [address] [address] MCHC 33.6 32.3 - 35.7 g/dL NEEL Comment:Testing performed by : [address] [address] RDW CV 15.5(H) 11.1 - 14.9 % NEEL Comment:Testing performed by : [address] [address] RDW SD 46.7 35.7 - 48.1 fL NEEL Comment:Testing performed by : [address] [address] NRBC abs 0.00 0.00 - 0.01 K/cumm NEEL Comment:Testing performed by : [address] [address] Blood Venous blood specimen / Unknown 10/08/2024 7:25 PM CDT 10/08/2024 7:29 PM CDT us Lilliana LAWTON LAB BLOOD ORDERABLES Final Result NEEL [address] [facility] Department of Laboratories [place], [place] [id number] * Lipase (10/08/2024 7:25 PM CDT) Lipase 42 10 - 99 Units/L Comment:Testing performed by : [address] [address] Blood Venous blood specimen / Unknown 10/08/2024 7:25 PM CDT 10/08/2024 7:29 PM CDT Lilliana LAWTON LAB BLOOD ORDERABLES Final Result NEEL [address] [facility] Department [place] [address] * Comprehensive metabolic panel (10/08/2024 7:25 PM CDT) Pathologist [facility] Sodium 141 135 - 145 mmol/L Comment:Testing performed by : [address] [address] Potassium, pl 4.3 3.3 - 4.9 mmol/L NEEL Comment: Hemolyzed; Potassium value may be falsely elevated by as much as 1.0 mmol/L. Suggest redraw and reanalysis. Testing performed by: [address] [address] Chloride 105 97 - 110 mmol/L NEEL Comment:Testing performed by : [address] [address] CO2 22 22 - 32 mmol/L NEEL Comment:Testing performed by : [address] [address] Anion gap 14 2 - 15 mmol/L NEEL Comment:Testing performed by : [address] [address] BUN 7 6 - 25 mg/dL NEEL Comment:Testing performed by : [address] [address] Creatinine 1.02 0.80 - 1.30 mg/dL NEEL Comment:Testing performed by : [address] [address] Glucose 104 70 - 199 mg/dL ENEL Comment: Interpretive Data Fasting glucose >/= 126 [...] was last revised 2022. Testing performed by: [address] [address] Calcium 10.1 8.5 - 10.3 mg/dL NEEL Comment:Testing performed by : [address] [address] Bilirubin, total 0.3 0.1 - 1.2 mg/dL [facility] Comment:Testing performed by : [address] [address] Protein, pl 7.7 6.5 - 8.5 g/dL [facility] Comment:Testing performed by : [address] [address] Albumin 4.8 3.5 - 5.0 g/dL [facility] Comment:Testing performed by : [address] [address] Alk phos 88 40 - 130 Units/L [facility] Comment:Testing performed by : [address] [address] ALT 24 7 - 55 Units/L [facility] Comment:Testing performed by : [address] [address] AST 25 10 - 50 Units/L [facility] Comment: Hemolyzed; result may be falsely elevated Testing performed by: [address] [address] Blood 10/08/2024 7:25 PM CDT 10/08/2024 7:29 PM CDT Lilliana LAWTON LAB BLOOD ORDERABLES Final Result NEEL MH [address] [facility] Department [place] [address] * CTA Chest Abdomen Pelvis (10/07/2024 6:41 [...] Melissa Phoenix M.D. SN T: Report ID: [id number] Reading Location: [place] [address] Procedure Note Melissa Phoenix MD - 10/07/2024 [...] Melissa Phoenix M.D. 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 SN T: Report ID: [id number] Reading Location: [id number] Procedure Note Melissa Phoenix MD - 10/07/2024 EXAM DESCRIPTION: XR CHEST 1 VIEW REASON FOR STUDY: Abd pain, unspecified C/o upper L quad abd pain. 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 SN T: Report ID: [id number] Reading Location: [id number] Jose Francisco Harper DO IMG XR PROCEDURES Final Res ult * Troponin T high-sensitivity 2-hour (10/07/2024 6:05 AM CDT) Trop T hs <6 <=22 ng/L Comment: Interpretive Data For further hscTnT resources including the diagnostic algorithm and an aid in interpretation, copy and paste this link: https://nrl.testcatalog.org/show/hsTrop Current Interpretive Data last revised 2020. Trop T hs delta 0 ng/L [facility] Trop T hs interp Insignificant [facility] Blood 10/07/2024 6:05 AM CDT 10/07/2024 6:07 AM CDT Jose Francisco Harper DO LAB BLOOD ORDERABLES Final Result Performing Organization Address City/[facility]/ZIP Co de Phone Number [facility] [address] [facility] Department [place] [address] * ECG 12 lead (10/07/2024 4:11 AM CDT) Ventricular Rate EKG/Min 65 BPM [facility] Atrial Rate 65 BPM [facility] NE-Interval (MSEC) 108 ms [facility] QRS-Interval (MSEC) 102 ms [facility] QT-Interval (MSEC) 388 ms [facility] QTc 403 ms [facility] P [place] 30 degrees [facility] R [place] 56 degrees [facility] T [place] 58 degrees [facility] Diagnosis Sinus rhythm with short NE Otherwise normal ECG When compared with ECG of 27-JUN-2024 09:54, No significant change was found Confirmed by ASHLIE BERMEO M.D. ([id number]) on 10/07/2024 11:47:08 PM [facility] 10/07/2024 4:11 AM CDT 10/07/2024 11:47 PM CDT Jose Francisco Harper DO ECG ORDERABLES Final Resul t Performing Organization Address City/[facility]/ZIP Co de Phone Number [facility] * Urinalysis reflex to microscopic and culture Urine (10/07/2024 4:06 AM CDT) Color, ur Yellow Yellow Clarity, ur Clear Clear [facility] Specific gravity, ur 1.013 1.003 - 1.030 [facility] pH, urine 5.5 [facility] Comment: Interpretive Data U rine pH is affected by diet, medications, systemic acid-base disturbances, and renal tubular function. pH may affect urinary stone formation. For example, urine pH below 6.0 may help reduce the tendency for calcium phosphate stones and pH greater than 6.0 may reduce the tendency for uric acid stone formation. Source: [facility] Current Interpretive Data was last revised on 2017 Protein, ur ql Negative Negative [facility] Glucose, ur ql Negative Negative [facility] Ketones, ur Negative Negative [facility] Bilirubin, ur Negative Negative [facility] Blood, ur Negative Negative [facility] Urobilinogen, ur <2.0 <2.0 mg/dL [facility] Nitrite, ur Negative Negative [facility] Leukocyte esterase, ur Negative Negative [facility] UA reflex comment Reflex conditions for microscopic UA and culture not met. [facility] Urine 10/07/2024 4:06 AM CDT 10/07/2024 4:10 AM CDT us Jose Francisco Harper DO LAB MICROBIOLOGY - GENERAL ORDERABLES Final Result NEEL [address] [facility] [place] [address] * Troponin T high-sensitivity series (baseline, 2hr, [...] Final Result Performing Organization Address [facility] de Phone Number NEEL [address] [address] * eGFR (10/07/2024 4:00 AM CDT) Pathologist [facility] eGFR 87 >=60 mL/min/1. 73 m2 Comment: [...] Final Result Performing Organization Address [facility] Co de Phone Number NEEL [address] [place] [address] * (ABNORMAL) Differential, auto (10/07/2024 4:00 AM CDT) [facility] Neutrophil abs 5.81 1.50 - 6.50 K/cumm Imm gran abs 0.04 0.00 - 0.10 K/cumm [facility] Lymphocyte abs 3.73(H) 0.80 - 3.30 K/cumm [facility] Monocyte abs 1.14(H) 0.20 - 0.80 K/cumm [facility] Eosinophil abs 0.27 0.00 - 0.50 K/cumm [facility] Basophil abs 0.06 0.00 - 0.10 K/cumm [facility] Neutrophil pct 52.6 % [facility] Comment: Interpretive Data Percent cell count reference ranges are not reported, since discordance with absolute values may lead to misinterpretation of CBC data. Current Interpretive Data was last revised on 2017. Imm gran pct 0.4 % [facility] Comment: Interpretive Data Percent cell count reference ranges are not reported, since discordance with absolute values may lead to misinterpretation of CBC data. Current Interpretive Data was last revised on 2017. Lymphocyte pct 33.8 % [facility] Comment: Interpretive Data Percent cell count reference ranges are not reported, since discordance with absolute values may lead to misinterpretation of CBC data. Current Interpretive Data was last revised on 2017. Monocyte pct 10.3 % [facility] Comment: Interpretive Data Percent cell count reference ranges are not reported, since discordance with absolute values may lead to misinterpretation of CBC data. Current Interpretive Data was last revised on 2017. Eosinophil pct 2.4 % [facility] Comment: Interpretive Data Percent cell count reference ranges are not reported, since discordance with absolute values may lead to misinterpretation of CBC data. Current Interpretive Data was last revised on 2017. Basophil pct 0.5 % [facility] Comment: Interpretive Data Percent cell count reference ranges are not reported, since discordance with absolute values may lead to misinterpretation of CBC data. Current Interpretive Data was last revised on 2017. Blood 10/07/2024 4:00 AM CDT 10/07/2024 4:02 AM CDT Jose Francisco Harper DO LAB BLOOD ORDERABLES Final Result NEEL SMITH [address] [facility] [place] [address] * (ABNORMAL) CBC with auto differential (10/07/2024 4:00 AM CDT) WBC 11.05(H) 3.80 - 9.90 K/cumm Hgb 14.9 13.0 - 17.5 g/dL [facility] Hct 44.7 38.9 - 50.3 % [facility] Plt 281 150 - 400 K/cumm [facility] MPV 9.8 9.1 - 12.3 fL [facility] RBC 5.28 4.30 - 5.80 M/cumm [facility] MCV 84.7 81.3 - 96.4 fL [facility] MCH 28.2 27.1 - 33.3 pg [facility] MCHC 33.3 32.3 - 35.7 g/dL [facility] RDW CV 15.3(H) 11.1 - 14.9 % [facility] RDW SD 46.6 35.7 - 48.1 fL [facility] NRBC abs 0.00 0.00 - 0.01 K/cumm [facility] Blood Venous blood specimen / Unknown 10/07/2024 4:00 AM CDT 10/07/2024 4:02 AM CDT Jose Francisco Rubio [facility] LAB BLOOD ORDERABLES Final Result Performing Organization Address City/[facility]/ZIP Co de Phone Number [address] [place] [address] * (ABNORMAL) Lipase (10/07/2024 4:00 AM CDT) [facility] Lipase 104(H) 10 - 99 Units/L Blood Venous blood specimen / Unknown 10/07/2024 4:00 AM CDT 10/07/2024 4:02 AM CDT Jose Francisco Rubio [facility] LAB BLOOD ORDERABLES Final Result [address] [employer] [place] [address] * Comprehensive metabolic panel (10/07/2024 4:00 AM CDT) [facility] Sodium 142 135 - 145 mmol/L Potassium, pl 4.1 3.3 - 4.9 mmol/L [facility] Chloride 107 97 - 110 mmol/L [facility] CO2 23 22 - 32 mmol/L [facility] Anion gap 12 2 - 15 mmol/L [facility] BUN 9 6 - 25 mg/dL [facility] Creatinine 1.08 0.80 - 1.30 mg/dL [facility] Glucose 90 70 - 199 mg/dL [facility] Comment: Interpretive Data Fasting glucose >/= [...] 2022. Calcium 9.4 8.5 - 10.3 mg/dL [facility] Bilirubin, total 0.2 0.1 - 1.2 mg/dL [facility] Protein, pl 7.1 6.5 - 8.5 g/dL [facility] Albumin 4.4 3.5 - 5.0 g/dL [facility] Alk phos 81 40 - 130 Units/L [facility] ALT 23 7 - 55 Units/L [facility] AST 24 10 - 50 Units/L [facility] Blood 10/07/2024 4:00 AM CDT 10/07/2024 4:02 AM CDT Jose Francisco Harper DO LAB BLOOD ORDERABLES Final Result [facility] [address] [facility] Department [place] [address] * eGFR (10/03/2024 7:08 AM [...] MD LAB BLOOD ORDERABLES Final Res ult [place] [id number] [facility] [place] [address] * (ABNORMAL) CBC without differential (10/03/2024 7:08 AM CDT) WBC 13.42(H) 3.80 - 9.90 K/cumm Hgb 12.4(L) 13.0 - 17.5 g/dL [facility] Hct 37.9(L) 38.9 - 50.3 % [facility] Plt 226 150 - 400 K/cumm [facility] MPV 10.0 9.1 - 12.3 fL [facility] RBC 4.43 4.30 - 5.80 M/cumm [facility] MCV 85.6 81.3 - 96.4 fL [facility] MCH 28.0 27.1 - 33.3 pg [facility] MCHC 32.7 32.3 - 35.7 g/dL [facility] RDW CV 15.4(H) 11.1 - 14.9 % [facility] RDW SD 48.1 35.7 - 48.1 fL [facility] NRBC abs 0.00 0.00 - 0.01 K/cumm [facility] Blood 10/03/2024 7:08 AM CDT 10/03/2024 7:22 AM CDT Fred Toth MD LAB BLOOD ORDERABLES Final Res ult Performing Organization Address City/[facility] Co de Phone Number [address] [address] * Lipase (10/03/2024 7:08 AM CDT) Pathologist [facility] Lipase 55 10 - 99 Units/L Blood 10/03/2024 7:08 AM CDT 10/03/2024 7:22 AM CDT us Fred Toth MD LAB BLOOD ORDERABLES Final Res ult Performing Organization Address [facility] de Phone Number [address] [address] * Basic metabolic panel (10/03/2024 7:08 AM CDT) [facility] Sodium 141 135 - 145 mmol/L Potassium, pl 4.4 3.3 - 4.9 mmol/L [facility] Chloride 107 97 - 110 mmol/L [facility] CO2 24 22 - 32 mmol/L [facility] Anion gap 10 2 - 15 mmol/L [facility] BUN 9 6 - 25 mg/dL [facility] Creatinine 0.96 0.80 - 1.30 mg/dL [facility] Glucose 100 70 - 199 mg/dL [facility] Comment: Interpretive Data Fasting glucose >/= [...] 2022. Calcium 8.9 8.5 - 10.3 mg/dL [facility] Blood 10/03/2024 7:08 AM CDT 10/03/2024 7:22 AM CDT us Fred Toth MD LAB BLOOD ORDERABLES Final Res ult NEEL SMITH [address] [facility] Department [place] [address] * (ABNORMAL) Lipid panel (10/03/2024 1:54 AM [...] last revised on 2017. Testing performed by: [address] [address] Triglycerides 115 <=149 mg/dL NEEL Comment: Interpretive [...] last revised on 2017. Testing performed by: [address] [address] HDL 32(L) >=40 mg/dL NEEL Comment: Interpretive [...] last revised on 2017. Testing performed by: [address] [address] LDL, calculated 61 <=129 mg/dL NEEL SMITH [...] last revised on 2023. Testing performed by: [address] [address] Non-HDL Cholesterol 82 mg/dL NEEL Comment: Interpretive [...] last revised on 2017. Testing performed by: [facility] [address] [place] [address]., [address] Chol/HDL ratio 4 NEEL SMITH Comment:Testing performed by : [facility], [address] [place] [address]., [address] Blood 10/03/2024 1:54 AM CDT 10/03/2024 2:00 AM CDT Fred Toth MD LAB BLOOD ORDERABLES Final Res ult NEEL SMITH [address] [facility] Department [place] [address] * CT Abdomen Pelvis W Contrast (10/03/2024 [...] Aryan Jovel M.D. AR: GIOVANNA Report ID: [id number] Reading Location: [id number] Procedure Note Aryan Jovel MD - 10/03/2024 [...] Aryan Jovel M.D. AR: GIOVANNA Report ID: [id number] Reading Location: [place] [address] [address] Navneet T[address] IM CT PROCEDURES Final Result * (ABNORMAL) Drugs of Abuse Screen, Urine with Reflex Confirmation (10/03/2024 12:51 AM CDT) [facility] Amphetamine, ur Not Detected CutOff 500ng/mL Comment: Interpretive Data - Amphetamines: Samples containing greater than 500 ng/mL d-methamphetamine or other cross-reacting amphetamine compounds are reported as positive. Amphetamine immunoassays are subject to significant false positive rates due to cross-reactivity of non-amphetamine drugs. Confirmatory testing required for definitive results. Current Interpretive Data was last reviewed 2022. Testing performed by: [address] [address] Barbiturates, ur Not Detected CutOff 200ng/mL [facility] Comment: Interpretive Data - Barbiturates: Samples containing greater than 200 ng/mL secobarbital or other cross-reacting barbiturate compounds are reported as positive. False positive and false negative results are possible. Confirmatory testing required for definitive results. Current Interpretive Data was last reviewed 2022. Testing performed by: [address] [address] Benzodiazepines, ur Not Detected CutOff 100ng/mL [facility] Comment: Interpretive Data - Benzodiazepines: Samples containing greater than 100 ng/mL nordiazepam or other cross-reacting compounds are reported as positive. False positive and false negative results are possible. Confirmatory testing required for definitive results. Current Interpretive Data was last reviewed 2022. Testing performed by: [address] [address] Cannabinoids, ur Screen Positive, presumptive (A) CutOff 50 ng/mL NEEL Comment: Interpretive Data - Cannabinoids: Samples containing greater than 50 ng/mL delta-9 THC -COOH or other cross- reacting compounds are reported as positive. False positive and false negative results are possible. Confirmatory testing required for definitive results. Current Interpretive Data was last reviewed 2022. Testing performed by: [facility], [address] [place] [address]., [address] Cocaine, ur Not Detected CutOff 150ng/mL [facility] Comment: Interpretive Data - Cocaine: Samples containing greater than 150 ng/mL benzoylecgonine or other cross- reacting compounds are reported as positive. False positive and false negative results are possible. Confirmatory testing required for definitive results. Current Interpretive Data was last reviewed 2022. Testing performed by: [address] [address] Fentanyl, Ur Not Detected CutOff 5 ng/mL [facility] Comment: Interpretive Data - Fentanyl: Samples containing greater than 1 ng/mL fentanyl or other cross-reacting fentanyl compounds are reported as positive. False positive and false negative results are possible. Confirmatory testing required for definitive results. Current Interpretive Data was last reviewed 2022. Testing performed by: [address] [address] Methadone, ur Not Detected CutOff 300ng/mL [facility] Comment: Interpretive Data - Methadone: Samples containing greater than 300 ng/mL d,l-methadone or other cross-reacting compounds are reported as positive. False positive and false negative results are possible. Confirmatory testing required for definitive results. Current Interpretive Data was last reviewed 2022. Testing performed by: [address] [address] Opiates, ur Not Detected CutOff 300ng/mL [facility] Comment: Interpretive Data - Opiates: Samples containing greater than 300 ng/mL morphine or other cross-reacting compounds are reported as positive. False positive and false negative results are possible. Confirmatory testing required for definitive results. Current Interpretive Data was last reviewed 2022. Testing performed by: [address] [address] Oxycodone, ur Not Detected CutOff 100ng/mL [facility] Comment: Interpretive Data - Oxycodone: Samples containing greater than 100 ng/mL oxycodone or other cross-reacting compounds are reported as positive. False positive and false negative results are possible. Confirmatory testing required for definitive results. Current Interpretive Data was last reviewed 2022. Testing performed by: [address] [address] Phencyclidine, ur Not Detected CutOff 25 ng/mL NEEL SMITH Comment: Interpretive Data - Phencyclidine: Samples containing greater than 25 ng/mL phencyclidine or other cross-reacting compounds are reported as positive. False positive and false negative results are possible. Confirmatory testing required for definitive results. Current Interpretive Data was last reviewed 2022. Testing performed by: [address] [address] Urine Creatinine 102 mg/dL NEEL SMITH Comment: Interpretive Data Urine Creatinine: < 10 mg/dL is extremely dilute = or > 10 but < 20 mg/dL is dilute = or > 20 mg/dL is normal Current Interpretive Data was last revised on 2017. Testing performed by: [address] [address] Urine 10/03/2024 12:5 1 AM CDT 10/03/2024 [...] LAB URINE ORDERABLES Final Res ult NEEL [address] [facility] Department [place] [address] * Urinalysis reflex to microscopic and culture Urine (10/02/2024 10:09 PM CDT) Color, ur Yellow Yellow Comment:Testing performed by : [address] [address] Clarity, ur Clear Clear NEEL SMITH Comment:Testing performed by : [address] [address] Specific gravity, ur 1.011 1.003 - 1.030 NEEL Comment:Testing performed by : [address], [place]., [address] pH, urine 6.0 NEEL Comment: Interpretive Data U rine pH is affected by diet, medications, systemic acid-base disturbances, and renal tubular function. pH may affect urinary stone formation. For example, urine pH below 6.0 may help reduce the tendency for calcium phosphate stones and pH greater than 6.0 may reduce the tendency for uric acid stone formation. Source: [facility] [employer] Current Interpretive Data was last revised on 2017 Testing performed by: [address] [address] Protein, ur ql Negative Negative NEEL Comment:Testing performed by : [address] [address] Glucose, ur ql Negative Negative NEEL Comment:Testing performed by : [address] [address] Ketones, ur Negative Negative NEEL Comment:Testing performed by : [address] [address] Bilirubin, ur Negative Negative NEEL Comment:Testing performed by : [address] [address] Blood, ur Negative Negative NEEL Comment:Testing performed by : [address] [address] Urobilinogen, ur <2.0 <2.0 mg/dL NEEL Comment:Testing performed by : [address] [address] Nitrite, ur Negative Negative NEEL Comment:Testing performed by : [address] [address] Leukocyte esterase, ur Negative Negative NEEL Comment:Testing performed by : [address] [address] UA reflex comment Reflex conditions for microscopic UA and culture not met. NEEL Comment:Testing performed by : [address] [address] Urine 10/02/2024 10:0 9 PM CDT 10/02/2024 10:11 PM CDT María Elena Calvo MD LAB MICROBIOLOGY - GENERA L ORDERABLES Final Result Performing Organization Address [facility] Co de Phone Number NEEL [address] Department [place] [address] * eGFR (10/02/2024 9:51 PM CDT) eGFR [...] was last reviewed 2021. Testing performed by: [facility], [address] [place] [address]., [address] Blood 10/02/2024 9:51 PM CDT 10/02/2024 9:57 PM CDT María Elena Calvo MD LAB BLOOD ORDERABLES Renee l Result Performing Organization Address City/[facility]/ZIP Co de Phone Number NEEL [address] Department [place] [address] * (ABNORMAL) Differential, auto (10/02/2024 9:51 PM CDT) Pathologist [facility] Neutrophil abs 12.91(H) 1.50 - 6.50 K/cumm Comment:Testing performed by : [address] [address] Imm gran abs 0.10 0.00 - 0.10 K/cumm NEEL Comment:Testing performed by : [address], [place]., [address] Lymphocyte abs 1.91 0.80 - 3.30 K/cumm NEEL Comment:Testing performed by : [address], [place]., [address] Monocyte abs 1.44(H) 0.20 - 0.80 K/cumm [facility] Comment:Testing performed by : [address] [address] Eosinophil abs 0.14 0.00 - 0.50 K/cumm [facility] Comment:Testing performed by : [address] [address] Basophil abs 0.07 0.00 - 0.10 K/cumm [facility] Comment:Testing performed by : [address] [address] Neutrophil pct 78.0 % [facility] Comment: Interpretive Data Percent cell count reference ranges are not reported, since discordance with absolute values may lead to misinterpretation of CBC data. Current Interpretive Data was last revised on 2017. Testing performed by: [address] [address] Imm gran pct 0.6 % [facility] Comment: Interpretive Data Percent cell count reference ranges are not reported, since discordance with absolute values may lead to misinterpretation of CBC data. Current Interpretive Data was last revised on 2017. Testing performed by: [address] [address] Lymphocyte pct 11.5 % [facility] Comment: Interpretive Data Percent cell count reference ranges are not reported, since discordance with absolute values may lead to misinterpretation of CBC data. Current Interpretive Data was last revised on 2017. Testing performed by: [address] [address] Monocyte pct 8.7 % [facility] Comment: Interpretive Data Percent cell count reference ranges are not reported, since discordance with absolute values may lead to misinterpretation of CBC data. Current Interpretive Data was last revised on 2017. Testing performed by: [address] [address] Eosinophil pct 0.8 % NEEL Comment: Interpretive Data Percent cell count reference ranges are not reported, since discordance with absolute values may lead to misinterpretation of CBC data. Current Interpretive Data was last revised on 2017. Testing performed by: [address] [address] Basophil pct 0.4 % NEEL Comment: Interpretive Data Percent cell count reference ranges are not reported, since discordance with absolute values may lead to misinterpretation of CBC data. Current Interpretive Data was last revised on 2017. Testing performed by: [address] [address] Blood 10/02/2024 9:51 PM CDT 10/02/2024 9:57 PM CDT us María Elena Calvo MD LAB BLOOD ORDERABLES Renee antunez Result [facility] Department [place] [address] * (ABNORMAL) CBC with auto differential (10/02/2024 9:51 PM CDT) WBC 16.57(H) 3.80 - 9.90 K/cumm Comment:Testing performed by : [address] [address] Hgb 13.9 13.0 - 17.5 g/dL NEEL SMITH Comment:Testing performed by : [address] [address] Hct 41.0 38.9 - 50.3 % NEEL SMITH Comment:Testing performed by : [address] [address] Plt 281 150 - 400 K/cumm NEEL SMITH Comment:Testing performed by : [address] [address] MPV 9.9 9.1 - 12.3 fL NEEL Comment:Testing performed by : [address] [address] RBC 4.94 4.30 - 5.80 M/cumm NEEL SMITH Comment:Testing performed by : [address], [address] MCV 83.0 81.3 - 96.4 fL NEEL Comment:Testing performed by : [address] [address] MCH 28.1 27.1 - 33.3 pg NEEL Comment:Testing performed by : [address] [address] MCHC 33.9 32.3 - 35.7 g/dL NEEL Comment:Testing performed by : [address], [address] RDW CV 15.4(H) 11.1 - 14.9 % NEEL Comment:Testing performed by : [address], [address] RDW SD 46.5 35.7 - 48.1 fL NEEL Comment:Testing performed by : [address], [address] NRBC abs 0.00 0.00 - 0.01 K/cumm NEEL Comment:Testing performed by : [address], [address] Blood Venous blood specimen / Unknown 10/02/2024 9:51 PM CDT 10/02/2024 9:57 PM CDT us María Elena Calvo MD LAB BLOOD ORDERABLES Renee antunez Result NEEL [address] [facility] Department of Laboratories [place], [place] [id number] * (ABNORMAL) Lipase (10/02/2024 9:51 PM CDT) Lipase 444(H) 10 - 99 Units/L Comment:Testing performed by : [address] [address] Blood Venous blood specimen / Unknown 10/02/2024 9:51 PM CDT 10/02/2024 9:57 PM CDT María Elena Calvo MD LAB BLOOD ORDERABLES Renee tulio Result [facility] [address] [facility] Department [place] [address] * Comprehensive metabolic panel (10/02/2024 9:51 PM CDT) Sodium 143 135 - 145 mmol/L Comment:Testing performed by : [address] [address] Potassium, pl 3.9 3.3 - 4.9 mmol/L NEEL Comment:Testing performed by : [address] [address] Chloride 107 97 - 110 mmol/L NEEL Comment:Testing performed by : [address] [address] CO2 22 22 - 32 mmol/L NEEL Comment:Testing performed by : [address] [address] Anion gap 14 2 - 15 mmol/L NEEL Comment:Testing performed by : [address] [address] BUN 7 6 - 25 mg/dL NEEL Comment:Testing performed by : [address] [address] Creatinine 1.08 0.80 - 1.30 mg/dL NEEL Comment:Testing performed by : [address] [address] Glucose 129 70 - 199 mg/dL NEEL [...] was last revised 2022. Testing performed by: [facility], [address] [place] [address]., [address] Calcium 10.0 8.5 - 10.3 mg/dL NEEL Comment:Testing performed by : [address] [address] Bilirubin, total 0.3 0.1 - 1.2 mg/dL NEEL Comment:Testing performed by : [address] [address] Protein, pl 7.2 6.5 - 8.5 g/dL NEEL Comment:Testing performed by : [address] [address] Albumin 4.5 3.5 - 5.0 g/dL NEEL Comment:Testing performed by : [address] [address] Alk phos 84 40 - 130 Units/L NEEL Comment:Testing performed by : [address] [address] ALT 28 7 - 55 Units/L NEEL Comment:Testing performed by : [address] [address] AST 37 10 - 50 Units/L [facility] Comment:Testing performed by : [address] [address] Blood 10/02/2024 9:51 PM CDT 10/02/2024 9:57 PM CDT us María Elena Calvo MD LAB BLOOD ORDERABLES Renee antunez Result NEEL [address] [facility] Department [place] [address] * CT Abdomen Pelvis W Contrast (09/30/2024 [...] Esa Cao M.D. AG: GONZALES Report ID: [id number] Reading Location: [id number] Procedure Note Esa Cao MD - 09/30/2024 [...] Esa Cao M.D. AG: GONZALES Report ID: [id number] Reading Location: [place] [address] Radha Casas DO [facility] PROCEDURES Final Result * (ABNORMAL) Urinalysis reflex to microscopic and culture Urine (09/30/2024 5:55 PM CDT) Color, ur Yellow Yellow Comment:Testing performed by : [address] [address] Clarity, ur Clear Clear NEEL Comment:Testing performed by : [address] [address] Specific gravity, ur 1.035(H) 1.003 - 1.030 NEEL Comment:Testing performed by : [address] [address] pH, urine 6.0 NEEL Comment: Interpretive Data U rine pH is affected by diet, medications, systemic acid-base disturbances, and renal tubular function. pH may affect urinary stone formation. For example, urine pH below 6.0 may help reduce the tendency for calcium phosphate stones and pH greater than 6.0 may reduce the tendency for uric acid stone formation. Source: [employer] Current Interpretive Data was last revised on 2017 Testing performed by: [facility], [address] [place] [address], [place]., [address] Protein, ur ql 1+(A) Negative NEEL Comment:Testing performed by : [facility], [address] [place] [address], [place]., [address] Glucose, ur ql Negative Negative NEEL Comment:Testing performed by : [address], [place]., [address] Ketones, ur 1+(A) Negative NEEL Comment:Testing performed by : [address], [place]., [address] Bilirubin, ur Negative Negative NEEL Comment:Testing performed by : [address], [place]., [address] Blood, ur Negative Negative NEEL Comment:Testing performed by : [address], [place]., [address] Urobilinogen, ur 2.0(A) <2.0 mg/dL NEEL Comment:Testing performed by : [address], [place]., [address] Nitrite, ur Negative Negative NEEL Comment:Testing performed by : [address] [address] Leukocyte esterase, ur Negative Negative NEEL Comment:Testing performed by : [address], [place]., [address] UA reflex comment Reflex to microscopic UA will be performed. NEEL Comment:Testing performed by : [address] [address] Urine 09/30/2024 5:55 PM CDT 09/30/2024 5:57 PM CDT Radha Casas DO LAB MICROBIOLOGY - GENERAL ORDE SAMEER Final Result NEEL SMITH [address] [facility] Department of Laboratories [place], [place] [id number] * (ABNORMAL) Urinalysis, microscopic only (09/30/2024 5:55 PM CDT) WBC, ur 6-10(A) 0 - 5 /HPF Comment:Testing performed by : [facility], [address] [place] [address]., [address] RBC, ur 3-5(A) 0 - 2 /HPF NEEL Comment:Testing performed by : [address], [place]., [address] Epithelial cells, squamous, ur 6-10(A) 0 - 5 /HPF NEEL Comment:Testing performed by : [address], [place]., [address] Mucous, ur Present(A) NEEL Comment:Testing performed by : [address], [place]., [address] Culture Reflex Comment Reflex conditions for urine culture (WBC >10) not met. NEEL Comment:Testing performed by : [address], [place]., [address] Urine 09/30/2024 5:55 PM CDT 09/30/2024 5:57 PM CDT us Radha Casas DO LAB URINE ORDERABLES Final Resu lt NEEL [address] [facility] Department [place] [address] * eGFR (09/30/2024 4:01 PM [...] was last reviewed 2021. Testing performed by: [address] [address] Blood 09/30/2024 4:01 PM CDT 09/30/2024 4:06 PM CDT Radha Casas DO LAB BLOOD ORDERABLES Final Resu lt [facility] [address] [facility] [place] [address] * Differential, auto (09/30/2024 4:01 PM CDT) Neutrophil abs 5.11 1.50 - 6.50 K/cumm Comment:Testing performed by : [address] [address] Imm gran abs 0.04 0.00 - 0.10 K/cumm NEEL Comment:Testing performed by : [address] [address] Lymphocyte abs 1.62 0.80 - 3.30 K/cumm NEEL Comment:Testing performed by : [address] [address] Monocyte abs 0.77 0.20 - 0.80 K/cumm NEEL Comment:Testing performed by : [address] [address] Eosinophil abs 0.18 0.00 - 0.50 K/cumm NEEL Comment:Testing performed by : [address] [address] Basophil abs 0.05 0.00 - 0.10 K/cumm NEEL Comment:Testing performed by : [address] [address] Neutrophil pct 65.9 % NEEL Comment: Interpretive Data Percent cell count reference ranges are not reported, since discordance with absolute values may lead to misinterpretation of CBC data. Current Interpretive Data was last revised on 2017. Testing performed by: [address] [address] Imm gran pct 0.5 % [facility] Comment: Interpretive Data Percent cell count reference ranges are not reported, since discordance with absolute values may lead to misinterpretation of CBC data. Current Interpretive Data was last revised on 2017. Testing performed by: [address] [address] Lymphocyte pct 20.8 % [facility] Comment: Interpretive Data Percent cell count reference ranges are not reported, since discordance with absolute values may lead to misinterpretation of CBC data. Current Interpretive Data was last revised on 2017. Testing performed by: [address] [address] Monocyte pct 9.9 % [facility] Comment: Interpretive Data Percent cell count reference ranges are not reported, since discordance with absolute values may lead to misinterpretation of CBC data. Current Interpretive Data was last revised on 2017. Testing performed by: [address] [address] Eosinophil pct 2.3 % [facility] Comment: Interpretive Data Percent cell count reference ranges are not reported, since discordance with absolute values may lead to misinterpretation of CBC data. Current Interpretive Data was last revised on 2017. Testing performed by: [address] [address] Basophil pct 0.6 % [facility] Comment: Interpretive Data Percent cell count reference ranges are not reported, since discordance with absolute values may lead to misinterpretation of CBC data. Current Interpretive Data was last revised on 2017. Testing performed by: [address] [address] Blood 09/30/2024 4:01 PM CDT 09/30/2024 4:06 PM CDT us Radha Casas DO LAB BLOOD ORDERABLES Final Resu lt NEEL [address] [facility] Department [place] [address] * (ABNORMAL) CBC with auto differential (09/30/2024 4:01 PM CDT) [facility] Signature WBC 7.77 3.80 - 9.90 K/cumm Comment:Testing performed by : [address] [address] Hgb 14.5 13.0 - 17.5 g/dL NEEL Comment:Testing performed by : [address] [address] Hct 43.0 38.9 - 50.3 % NEEL Comment:Testing performed by : [address], [address] Plt 278 150 - 400 K/cumm NEEL Comment:Testing performed by : [address] [address] MPV 9.8 9.1 - 12.3 fL NEEL Comment:Testing performed by : [address], [address] RBC 5.18 4.30 - 5.80 M/cumm NEEL Comment:Testing performed by : [address] [address] MCV 83.0 81.3 - 96.4 fL NEEL Comment:Testing performed by : [address] [address] MCH 28.0 27.1 - 33.3 pg NEEL Comment:Testing performed by : [address] [address] MCHC 33.7 32.3 - 35.7 g/dL NEEL Comment:Testing performed by : [address] [address] RDW CV 15.3(H) 11.1 - 14.9 % NEEL Comment:Testing performed by : [address] [address] RDW SD 46.4 35.7 - 48.1 fL NEEL Comment:Testing performed by : [address] [address] NRBC abs 0.00 0.00 - 0.01 K/cumm NEEL Comment:Testing performed by : [address] [address] Blood Venous blood specimen / Unknown 09/30/2024 4:01 PM CDT 09/30/2024 4:06 PM CDT Radha Casas DO LAB BLOOD ORDERABLES Final Resu lt Performing Organization Address City/[facility] Co de Phone Number NEEL [address] [place] [address] * Lipase (09/30/2024 4:01 PM CDT) Pathologist [facility] Lipase 51 10 - 99 Units/L Comment:Testing performed by : [address] [address] Blood Venous blood specimen / Unknown 09/30/2024 4:01 PM CDT 09/30/2024 4:06 PM CDT Radha Casas LAB BLOOD ORDERABLES Final Resu lt Performing Organization Address [facility] de Phone Number QUINTEN[address] [address] * Comprehensive metabolic panel (09/30/2024 4:01 PM CDT) Pathologist [facility] Sodium 141 135 - 145 mmol/L Comment:Testing performed by : [address] [address] Potassium, pl 4.0 3.3 - 4.9 mmol/L NEEL Comment:Testing performed by : [address] [address] Chloride 106 97 - 110 mmol/L NEEL Comment:Testing performed by : [address] [address] CO2 24 22 - 32 mmol/L NEEL Comment:Testing performed by : [address] [address] Anion gap 11 2 - 15 mmol/L NEEL Comment:Testing performed by : [address] [address] BUN 9 6 - 25 mg/dL NEEL Comment:Testing performed by : [address] [address] Creatinine 1.00 0.80 - 1.30 mg/dL NEEL Comment:Testing performed by : [address] [address] Glucose 107 70 - 199 mg/dL NEEL [...] was last revised 2022. Testing performed by: [address] [address] Calcium 9.6 8.5 - 10.3 mg/dL NEEL Comment:Testing performed by : [address] [address] Bilirubin, total 0.4 0.1 - 1.2 mg/dL NEEL Comment:Testing performed by : [address] [address] Protein, pl 7.1 6.5 - 8.5 g/dL NEEL Comment:Testing performed by : [address] [address] Albumin 4.3 3.5 - 5.0 g/dL NEEL Comment:Testing performed by : [address] [address] Alk phos 87 40 - 130 Units/L NEEL Comment:Testing performed by : [address] [address] ALT 25 7 - 55 Units/L NEEL Comment:Testing performed by : [address] [address] AST 25 10 - 50 Units/L NEEL SMITH Comment:Testing performed by : [facility], [address] [place]., [address] Blood 09/30/2024 4:01 PM CDT 09/30/2024 4:06 PM CDT us Radha Casas DO LAB BLOOD ORDERABLES Final Resu lt NEEL [address] [facility] Department [place] [address] from Last 3 Months Advance Directives For more information, please contact: [phone] * Full Code (Latest Code Status on [...] 8:00 AM 06/30/2022 5:06 PM Care Teams Marine Driller Relationship Specialty Start Date End Date Td Lopez MD [address] [facility] [address] [place] [address] PCP - General Family Medicine 11/09/20 Angie Woodard MD [address] [facility] [address] [place] [address] Consulting Physician Gastroenterology 07/17/21 Vimal Woodruff MD [address] [facility] [address] [place] [address] Consulting Physician Gastroenterology 02/10/22
--- OUTSIDE RECORDS SUMMARY | 2024-11-29 02:59 | XMS_ITS | Clinical Summary ---
Author Organization [facility] Address [facility] [place] [address] Care Team Providers Care Nursing Department Chairperson Name Role Phone Td Lopez MD Primary Care Provider [phone] Allergies Active Allergy Reactions Criticality Noted Date Comments Capsaicin Other (see comment) Low 05/20/2019 Pt states it gets into his scars and causes a lot of pain Doxycycline GI Upset Low 03/29/2017 Haloperidol Other (see comment) 01/29/2022 Musculoskeletal pain Metoclopramide Myalgias 03/29/2017 Sulfa Antibiotics Myalgias,Other (see comment) Medium 03/29/2017 Reaction: neurological symptoms per patient Medications CREON 03321-785727 units CAPSULE ENTERIC COATED PARTICLES Take 36,000 [...] pain 10/18/2022 Abdominal pain 10/18/2022 Acute pancreatitis ([facility]) 09/28/2022 Renal infarct ([facility]) 09/08/2022 Marijuana use 09/04/2022 Normocytic normochromic anemia 09/04/2022 Sphincter of Oddi dysfunction 09/04/2022 Tobacco use disorder, continuous 09/04/2022 Pancreatitis ([facility]) 09/02/2022 GI bleed 06/28/2022 Folliculitis 01/08/2022 Overview (09/04/2022): Last Assessment & Plan: - chronic, uncontrolled - start clindamycin gel daily x 7 days - ref to derm for eval. Manipulative behavior 07/14/2021 COVID-19 vaccine series completed 06/27/2021 Overview (09/04/2022): Moderna x2 Drug-seeking behavior 06/27/2021 History of 2019 novel coronavirus disease (COVID -19) 06/27/2021 Drug abuse and dependence ([facility]) 09/2020 Overview (09/04/2022): Last Assessment & Plan: - using mariajuana occasionally; has had frequent rx for opioids in ER - pt claims at least several days since last ER visit with narcotics given - record review suggests at least 2 wks - will check UDS Acute recurrent pancreatitis ([facility]) Other chronic pancreatitis ([facility]) Overview (09/04/2022): Last Assessment & Plan: - stable today - continue current medications - f/u with Dr Rosas as planned - encouraged pt to come to clinic instead of going to ER next time he has abdominal pain Duodenal papillary stenosis ([facility]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/2020 Hyperemesis 10/18/2019 Annual physical exam 07/15/2019 [...] Colitis 02/18/2019 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 Mild malnutrition ([facility]) 10/18/2018 Neutrophilic leukocytosis 10/18/2018 Tobacco use disorder 10/18/2018 Other chronic pancreatitis ([facility]) 02/2019 Overview (02/18/2019): Overview: Added automatically from request for surgery [id number] Chronic abdominal pain 03/30/2017 Assessment & Plan (03/30/2017 12:03 PM CASEY SAW OPERATOR): Acute on chronic, stable Patient with possible [...] Continue to advance diet as tolerated Sepsis ([facility]) 03/30/2017 Assessment & Plan (03/30/2017 12:03 PM CASEY SAW OPERATOR): Present on admission, resolved Lactic acid 2.8 [...] 03/30/2017 Assessment & Plan (03/30/2017 12:25 AM CASEY SAW OPERATOR): - established, controlled - continue home fluoxetine, nortriptyline GERD (gastroesophageal reflux disease) 7 Assessment & Plan (03/30/2017 12:25 AM CASEY SAW OPERATOR): - established, controlled - continue home nexium Hypertension 03/30/2017 Overview (03/30/2017): - established, controlled - continue home metoprolol Assessment & Plan (03/30/2017 1:01 AM CASEY SAW OPERATOR): - established, controlled - continue home metoprolol Influenza 03/30/2017 Depression 03/30/2017 Overview (02/18/2019): Overview: Last Assessment & Plan: - established, controlled - continue home fluoxetine, nortriptyline Flu 03/29/2017 Assessment & Plan (03/30/2017 12:03 PM CASEY SAW OPERATOR): Acute, influenza A + on admission, asymptomatic [...] CDT - 10/11/2024 3:20 AM CDT Emergency [facility] Emergency Room [id number] [place] [address] Clem Jones MD Abdominal Pain Discharge Disposition: [...] week 09/28/2022 How often do you attend yazidi or restorationist serv ices? Never 09/28/2022 Do you belong to any clubs o r organizations such as yazidi groups, unions, fraternal or athletic groups, or [...] and heating? 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 Procedure Name Priority Date/Time Associated Diagnosis Comments ECG 12-LEAD STAT 10/11/2024 1:11 AM CDT LIPASE STAT 10/11/2024 12:51 AM CDT PROTHROMBIN TIME, VENOUS STAT 10/11/2024 12:51 AM CDT COMPREHENSIVE METABOLIC PANEL STAT 10/11/2024 12:51 AM CDT CBC W/DIFF AUTOMATED STAT 10/11/2024 12:51 AM CDT from Last 3 Months Results * ECG 12 lead (10/11/2024 1:11 AM CDT) 10/11/2024 1:11 AM CDT Narrative [facility] ([facility]) RAD - 10/17/2024 1:51 PM CDT [facility] Test Date: 2024-10-11 Pat Name: LIBERTAD BROWN Department: 85 Room: EXAM 202 Gender: 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 Dc Field Yoke: : 1980 Requested By: CLEM JONES Order Number: [id number] Reading MD: Kwadwo Dominguez Measurements Intervals [place] Rate: 72 P: 15 CO: 95 QRS: 48 QRSD: 109 T: 64 QT: 364 QTc: 398 Interpretive Statements SINUS RHYTHM WITH SINUS ARRHYTHMIA WITH SHORT CO INTERVAL INCOMPLETE RIGHT BUNDLE BRANCH BLOCK [90+ ms QRS DURATION, TERMINAL R IN V1/V2, 40+ ms S IN I/aVL/V4/V5/V6] Compared to ECG 01/03/2024 15:01:45 Incomplete right bundle-branch block now present Intraventricular conduction delay no longer present Procedure Note Kwadwo Dominguez MD - 10/17/2024 [facility] Test Date: 2024-10-11 Pat Name: LIBERTAD BROWN Department: 85 Room: EXAM 202 Gender: 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 Dc Field Yoke: : 1980 Requested By: CLEM JONES Order Number: [id number] Reading MD: Kwadwo Dominguez Measurements Intervals [place] Rate: 72 P: 15 CO: 95 QRS: 48 QRSD: 109 T: 64 QT: 364 QTc: 398 Interpretive Statements SINUS RHYTHM WITH SINUS ARRHYTHMIA WITH SHORT CO INTERVAL INCOMPLETE RIGHT BUNDLE BRANCH BLOCK [90+ ms QRS DURATION, TERMINAL RIN V1/V2, 40+ ms S IN I/aVL/V4/V5/V6] Compared to ECG 01/03/2024 15:01:45 Incomplete right bundle-branch block now present Intraventricular conduction delay no longer present us Clem Jones MD ECG ORDERABLES Final R esult Performing Organization Address City/[facility]/ZIP Co de Phone Number [facility]) RAD * PROTIME/INR, VENOUS (10/11/2024 12:51 AM CDT) PROTIME 10.8 9.1 - 12.4 SEC 10/11/2024 1:17 AM CDT [facility] INR 0.9 10/11/2024 1:17 AM CDT [facility] Comment: Recommend INR ranges for Oral Anticoagulant Therapy: Mechanical Cardiac Values 2.5-3.5 All others indication 2.0-3.0 10/11/2024 12:5 1 AM CDT us Clem Jones MD LABORATORY Final R esult [facility] [address] [place] [address], [place] [phone] * (ABNORMAL) COMPREHENSIVE METABOLIC PANEL (10/11/2024 12:51 AM CDT) GLUCOSE 127(H) 70 - 99 MG/DL 10/11/2024 1:26 AM [facility] BUN 6(L) 7 - 18 MG/DL 10/11/2024 1:26 AM [facility] CREATININE S/P/B 0.96 0.7 - 1.3 MG/DL 10/11/2024 1:26 AM [facility] SODIUM S/P/B 143 136 - 145 MMOL/L 10/11/2024 1:26 AM [facility] POTASSIUM S/P/B 4.2 3.5 - 5.1 MMOL/L 10/11/2024 1:26 AM [facility] CHLORIDE S/P/B 105 100 - 108 MMOL/L 10/11/2024 1:26 AM [facility] CO2 26.5 21 - 32 MMOL/L 10/11/2024 1:26 AM [facility] CALCIUM S/P/B 9.5 8.5 - 10.1 MG/DL 10/11/2024 1:26 AM [facility] BILIRUBIN TOTAL S/P/B 0.6 0.2 - 1.2 MG/DL 10/11/2024 1:26 AM [facility] TOTAL PROTEIN S/P/B 7.6 6.4 - 8.2 G/DL 10/11/2024 1:26 AM [facility] ALBUMIN S/P/B 4.2 3.4 - 5.0 G/DL 10/11/2024 1:26 AM [facility] AST 28 15 - 37 U/L 10/11/2024 1:26 AM [facility] ALT 23 16 - 60 U/L 10/11/2024 1:26 AM [facility] ALKALINE PHOSPHATASE S/P/B 81 50 - 136 U/L 10/11/2024 1:26 AM CDT [facility] ANION GAP 11.5 5 - 15 MMOL/L 10/11/2024 1:26 AM CDT [facility] BUN CREATININE RATIO 6.2 6 - 26 10/11/2024 1:26 AM CDT [facility] A/G RATIO 1.2 1.0 - 2.0 RATIO 10/11/2024 1:26 AM CDT [facility] GFR ESTIMATE >90 >90 ML/MIN/1.7 3 M2 10/11/2024 1:26 AM CDT [facility] Comment: NOTE: eGFR [...] Clem Jones MD LABORATORY Final R esult [facility] [address] [place] [address], [place] [phone] * (ABNORMAL) CBC W/DIFF AUTOMATED (10/11/2024 12:51 AM CDT) WBC 13.90(H) 4.4 - 11.0 x10'3/uL 10/11/2024 1:26 AM CDT [facility] RBC 4.98 4.50 - 5.90 x10'6/uL 10/11/2024 1:26 AM CDT [facility] HGB 14.1 14.0 - 17.5 G/DL 10/11/2024 1:26 AM CDT [facility] HCT 42.3 41.5 - 50.4 % 10/11/2024 1:26 AM CDT [facility] MCV 84.9 80.0 - 96.0 FL 10/11/2024 1:26 AM CDT [facility] MCH 28.3 26.5 - 31.4 PG 10/11/2024 1:26 AM T [facility] MCHC 33.3 31.9 - 34.8 G/DL 10/11/2024 1:26 AM T [facility] RDW 15.4(H) 12.3 - 14.3 % 10/11/2024 1:26 AM T [facility] PLT 314 151 - 353 x10'3/uL 10/11/2024 1:26 AM T [facility] MPV 11.0 9.7 - 11.9 FL 10/11/2024 1:26 AM T [facility] RBC MORPHOLOGY NORMAL 10/11/2024 1:26 AM T [facility] PLT MORPH. NORMAL 10/11/2024 1:26 AM T [facility] WBC MORPHOLOGY NORMAL 10/11/2024 1:26 AM T [facility] LYMPHOCYTES % 7.9(L) 15.8 - 45.0 % 10/11/2024 1:26 AM CDT [facility] NEUTROPHILS % 87.4(H) 42.1 - 71.9 % 10/11/2024 1:26 AM CDT [facility] MONOCYTES % 3.8(L) 5.7 - 12.5 % 10/11/2024 1:26 AM T [facility] EOSINOPHILS 0.1 0.0 - 5.6 % 10/11/2024 1:26 AM CDT [facility] BASOPHILS 0.4 0.0 - 1.3 % 10/11/2024 1:26 AM CDT [facility] ABS. NEUTROPHILS 12.15(H) 1.40 - 6.00 x10'3/uL 10/11/2024 1:26 AM CDT [facility] IMMATURE GRANS % 0.4 0.0 - 0.5 % 10/11/2024 1:26 AM CDT [facility] ABS. LYMPHOCYTES 1.10 0.80 - 4.70 x10'3/uL 10/11/2024 1:26 AM CDT [facility] 10/11/2024 12:5 1 AM CDT Clem Jones MD LABORATORY Final R esult Performing Organization Address City/[facility]/ZIP Co de Phone Number [facility] [address] [place] [address], [place] [phone] * LIPASE (10/11/2024 12:51 AM CDT) LIPASE 36 16 - 77 UNITS/L 10/11/2024 1:26 AM CDT [facility] 10/11/2024 12:5 1 AM CDT Clem Jones MD LABORATORY Final R esult Performing Organization Address City/[facility]/ZIP Co de Phone Number [facility] [address] [place] [address], [place] [phone] from Last 3 Months Insurance AISHA Advance [...] 6:07 PM 10/19/2019 4:11 PM Care Teams Nursing Department Chairperson Relationship Specialty Start Date End Date Td Lopez MD PCP - General FAMILY PRACTICE 08/18/19
--- OUTSIDE RECORDS SUMMARY | 2024-11-29 02:59 | XMS_ITS | Clinical Summary ---
Author Organization [facility] Address [address] [place] [id number] Phone Care Team Providers Care Automatic Furnace Operator Name Role Phone Unavailable Primary Care Provider [...] on file Legal Sex Male 7:38 PM PULP AND PAPER TESTER Gender Identity Not on file Sexual Orientation Not on file Last Filed Vital Signs Vital Sign Reading Time Taken Comments Blood Pressure 119/84 07/11/2022 2:03 AM PULP AND PAPER TESTER Pulse 80 07/11/2022 2:03 AM PULP AND PAPER TESTER Temperature 36.3 C (97.4 F) 07/11/2022 2:03 AM PULP AND PAPER TESTER Respiratory Rate 18 07/11/2022 2:03 AM PULP AND PAPER TESTER Oxygen Saturation 97% 07/11/2022 2:03 AM PULP AND PAPER TESTER Inhaled Oxygen Concentration - - Weight 79.4 kg (175 lb) 07/10/2022 8:06 PM PULP AND PAPER TESTER Height 177.8 cm (5' 10) 07/10/2022 8:06 PM PULP AND PAPER TESTER Body Mass Index 25.11 07/10/2022 8:06 PM PULP AND PAPER TESTER Plan of Treatment Health Maintenance Due Date Last Done Comments HPV VACCINES (1 - Male 3-dos e series) 1996 HEPATITIS B VACCINES (1 of 3 - 19+ 3-dose series) 2000 COVID-19 Vaccine (4 - 2023-2 5 season) 2024 10/29/2021, 11/02/2020, 10/05/2020 INFLUENZA VACCINE (#1) 2024 , 02/29/2020, 02/09/2018 DTAP/TDAP/TD VACCINES (2 - T d or Tdap) 10/30/2031 10/29/2021 [place] [address] [employer] MEDICAID [place]ICAID [id number]
[2024-11-29] MEDS: KETOROLAC 30 MG/ML VIAL (*BKC) IV PUSH (03:05)
== END 2024-11-29 03:13 | disposition home or self-care (01) ==
PROVIDERS: Emergency Provider Student in an Organized Health Care Education/Training Program; PCP Family Medicine
DX: R11.15 Cyclical vomiting syndrome unrelated to migraine (principal); R10.9 Unspecified abdominal pain; G89.29 Other chronic pain; I10 Essential (primary) hypertension; K86.1 Other chronic pancreatitis; K21.9 Gastro-esophageal reflux disease without esophagitis; K58.9 Irritable bowel syndrome, unspecified; F41.9 Anxiety disorder, unspecified; F32.A Depression, unspecified; Z90.49 Acquired absence of other specified parts of digestive tract; Z87.442 Personal history of urinary calculi; F17.210 Nicotine dependence, cigarettes, uncomplicated
CPT/HCPCS: 36415; 80053; 81001; 83690; 85025; 96372; 96374; 96375; 99284; J0500; J1171; J1885; J2405; J7121

== ENCOUNTER 2024-12-06 12:20 | Emergency (ER) | payer SELFPAY ==
--- NOTE | ~2024-12-06 | CT_ITS ---
EXAMINATION: CT abdomen pelvis w con DATE: 12/06/2024 16:15 INDICATION: epigastric pain TECHNIQUE: Computed tomography (CT) of the abdomen and pelvis was performed with 100 mL Omnipaque-350 intravenous contrast. Automated exposure control and iterative reconstruction technique were employe d. The dose-length product was 255.97 mGy-cm. COMPARISON: None. FINDINGS: Lower thorax: Unremarkable Liver: Low-density parenchyma. Subcentimeter right lobe hypodensity, too small to characterize, likel y represents a cyst or hemangioma. Biliary/Gallbladder: Gallbladder is absent. No bile duct dilation. Pneumobilia. Pancreas: No mass or duct dilation. Spleen: Normal. Adrenals:No mass. Kidneys: No suspicious mass, obstructing stone, or hydronephrosis. GI tract: Small hiatal hernia. Distal esophageal and gastric wall edema. Ascending and transverse col onic wall edema. No small or large bowel dilation. Normal appendix. Mesentery/Peritoneum: No ascites, mass, or free air. Retroperitoneum: No mass. Atherosclerotic calcifications of intra-abdominal arterial vessels. Pelvis: Incompletely distended urinary bladder. Moderate urinary bladder wall thickening. Soft Tissues: Small uncomplicated fat-containing umbilical and bilateral inguinal hernias. Bones: No acute osseous finding. Scattered bone islands. IMPRESSION: Mild esophagitis/gastritis. Hepatic steatosis. Ascending and transverse colonic wall edema, may reflect colitis. Urinary bladder wall thickening, may be secondary to distention or cystitis. Reviewed, dictated and finalized at location K.
--- OUTSIDE RECORDS SUMMARY | 2024-12-06 12:24 | XMS_ITS | Referral Summary ---
[facility] Organization [facility] Address [address] [place] [id number] Care Team Providers Care Meat Pumper Name Role Phone Td Lopez MD Primary Care Provider + Angie Woodard MD Unavailable Vimal Woodruff MD Unavailable Encounters Date Type Department Care Team Description 12/01/2024 12:42 AM CDT - 12/03/2024 3:20 PM CDT Hospital Encounter [id number] [place] [phone] [facility]omen[facility] Khan, Fariah Habib, DO Jain, Anshu, MD Enteritis (Primary Dx); Abdominal pain; Cyclic vomiting syndrome; Hyperemesis Discharge Disposition: Discharge to home or self care 11/26/2024 2:02 AM CDT - 11/26/2024 4:25 AM CDT Emergency [facility] Emergency Department [address] [place] [phone] Blue Warren MD Abdominal pain (Primary Dx); Nausea and vomiting, unspecified vomiting type Discharge Disposition: Discharge to home or self care 10/20/2024 [facility] ED Outreach [facility] Care Organization [address] [place] [id number] Niki Burns MA 10/19/2024 [facility] ED Outreach [address] [address] Niki Burns MA 10/18/2024 1:45 PM CDT - 10/18/2024 7:54 PM CDT Emergency [facility] Emergency Department [address] [place] [phone] Oswaldo Burns MD Chronic abdominal pain (Primary Dx) Discharge Disposition: Discharge to home or self care 10/18/2024 [facility] ED Outreach [address] [address] Niki Burns MA 10/14/2024 12:14 AM CDT - 10/14/2024 2:13 AM CDT Emergency [facility] Emergency Department [address] [place] [phone] Enteritis (Primary Dx) Discharge Disposition: Discharge to home or self care 10/13/2024 4:36 AM CDT - 10/13/2024 10:20 AM CDT Emergency [address] [address] Rodney Mejia MD Journagan, Kevin, MD Abdominal pain (Primary Dx); History of pancreatitis; Chronic abdominal pain; Nausea and vomiting, unspecified vomiting type Discharge Disposition: Discharge to home or self care 10/08/2024 7:54 PM CDT - 10/08/2024 8:06 PM CDT Emergency [facility] Emergency Department [address] [place] [id number] Chronic abdominal pain (Primary Dx) Discharge Disposition: Discharge to home or self care 10/07/2024 5:29 AM CDT - 10/07/2024 8:34 AM T Emergency [address] [address] Jose Francisco Harper DO Prograis, Shannon Smith, MD Abdominal pain (Primary Dx); Chronic pancreatitis, unspecified pancreatitis type (HCC) Discharge Disposition: Discharge to home or self care 10/06/2024 11:00 AM CDT Office Visit [facility] [address] [phone] Td Lopez MD Abdominal pain (Primary Dx); Other chronic pancreatitis (HCC); Gastroesophageal reflux disease without esophagitis; Irritable bowel syndrome with both constipation and diarrhea 10/05/2024 [facility] IP Outreach [address] [address] Lakshmi Garcia LPN 10/04/2024 Telephone [facility] [address] [phone] Td Lopez MD schedule [facility] appt 10/02/2024 9:53 PM CDT - 10/03/2024 11:39 AM CDT Hospital Encounter [address] [place] [address] María Elena Calvo MD Medavaram, Atul, MD Sada, Kahmalia-Kalee Conceptia, MD Chowdhury, Farhanaz, MD Abdominal pain (Primary Dx); Acute pancreatitis, unspecified complication status, unspecified pancreatitis type; Pain, dental Discharge Disposition: Discharge to home or self care 09/30/2024 5:44 PM CDT - 09/30/2024 8:58 PM CDT Emergency [facility] Emergency Department [address] [place] [address] Radha Casas DO Abdominal pain (Primary Dx); [...] 8 (eight) hours as needed 4 Active ibuprofen (ADVIL,MOTRIN) 400 mg tablet Take 1 tablet (400 mg total) by mouth every 8 (eight) hours as needed for pain 20 tablet 5 Active HYDROcodone-acet aminophen (NORCO) 5-325 mg per tabletIndication s:Pain Take 1 tablet by mouth every 8 (eight) hours as needed for pain 12 tablet 5 Active famotidine (PEPCID) 40 mg tabletIndication s:Gastroesophage al reflux disease without esophagitis Take 1 tablet (40 mg total) by mouth daily 90 tablet 1 5 10/07/[address] (PROTONIX) 40 mg EC tabletIndication s:Treatment of Non-Bleeding Gastric Disorder Take 1 tablet (40 mg total) by mouth daily 90 tablet 1 5 Active dicyclomine (BENTYL) 20 mg tabletIndication s:Enterocolitis Take 1 tablet (20 mg total) by mouth 2 (two) times a day as needed (Abdominal cramping) 30 tablet 5 Active ketorolac (TORADOL) 10 mg tablet Take 1 tablet (10 mg total) by mouth every 6 (six) hours as needed for pain 20 tablet 5 Active lidocaine viscous (XYLOCAINE) 2 % solutionIndicati ons:Mouth Irritation Apply 10 mL to the mouth or throat every 3 (three) hours 200 mL 5 12/02/19 25 Discontinu ed(Error) chlorhexidine (PERIDEX) 0.12 % oral rinse Swish and spit 15 mL 2 (two) times a day 118 mL 5 12/02/19 25 Discontinu ed(Error) ondansetron (ZOFRAN) 4 mg tablet Take 1 tablet (4 mg total) by mouth every 6 (six) hours 12 tablet 5 12/02/19 Discontinu ed(Error) Active Problems Problem Noted Date Diagnosed Date Intractable nausea and vomiting 12/01/2024 Abdominal pain 10/03/2024 Acute pancreatitis, unspecif ied complication status, unspecified pancreatitis type 08/10/2024 Neck pain 03/25/2024 Assessment & Plan (03/25/2024 11:50 AM SHELF STOCKER): - suspect just muscle strain - will check xray - offered PT but pt refused. Protein-calorie malnutrition, moderate 4 Abdominal pain, generalized 09/19/2023 Assessment & Plan (09/25/2023 12:23 PM CDT): - improving - will give small amount of norco until pt heals from his procedure - f/u with GI Current use of prison anticoagulation 023 Assessment & Plan (09/25/2023 12:23 PM CDT): - stable - continue eliquis Assessment & Plan (03/20/2023 11:08 AM SHELF STOCKER): - restart eliquis due to life long need for anticoagulation History of thrombosis 03/20/2023 Assessment & Plan (09/25/2023 12:22 PM CDT): - stable - continue eliquis Assessment & Plan (03/20/2023 11:08 AM SHELF STOCKER): - restart eliquis due to life long [...] famotidine Assessment & Plan (03/20/2023 11:08 AM SHELF STOCKER): - stable - continue current medication Renal [...] eval. Assessment & Plan (03/25/2024 11:49 AM SHELF STOCKER): - ref to derm for eval Drug [...] pain Assessment & Plan (03/25/2024 11:49 AM SHELF STOCKER): - poor control - continue hyosciamine, famotidine, zofran - ref to GI for continued treatment Assessment & Plan (03/20/2023 11:07 AM SHELF STOCKER): - stable - continue current medication Duodenal [...] prn Assessment & Plan (07/15/2019 11:44 AM SHELF STOCKER): - stable - continue bentyl and amitriptyline [...] medication Assessment & Plan (07/15/2019 11:44 AM SHELF STOCKER): - stable - continue creon Annual physical [...] able Assessment & Plan (07/15/2019 11:46 AM SHELF STOCKER): - encourage healthy diet, exercise - check labs - encouraged quitting smoking Enteritis 02/18/2019 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 Assessment & Plan (07/15/2019 11:37 AM SHELF STOCKER): - encouraged pt to quit smoking Abdominal [...] GI Assessment & Plan (03/20/2023 11:07 AM SHELF STOCKER): - stable - continue current medication per [...] 09/17/202209/08 Assessment & Plan (03/20/2023 11:08 AM SHELF STOCKER): - stable off meds - will monitor [...] 09/25/2023 Assessment & Plan (03/26/2021 11:41 AM SHELF STOCKER): - stable today - continue current medications [...] lexapro Assessment & Plan (07/15/2019 11:38 AM SHELF STOCKER): - stable - continue current plan Gastroesophageal reflux dise ase without esophagitis 07/15/2019 03/18/2023 Overview (07/15/2019): - GERD managed by Dr Woodard - Pt on omeprazole and carafate for sx control Assessment & Plan (01/01/2021 12:09 PM CDT): - stable - continue current medication Assessment & Plan (02/07/2020 2:32 PM CDT): - stable - continue current medication Assessment & Plan (07/15/2019 11:38 AM SHELF STOCKER): - stable - continue omeprazole and carafate Viral illness 07/08/2019 02/12/2021 Assessment & Plan (07/09/2019 9:12 AM SHELF STOCKER): Medrol Dosepak as directed. Recommended Mucinex plain [...] this as this is not a viable prison solution - will ref to pain management [...] medication Assessment & Plan (07/15/2019 11:36 AM SHELF STOCKER): - controlled - continue current plan Chronic [...] = 0.6 oz pur e alcohol) [facility] Utilities Answer Date Recorded In the past 12 months has e [employer], gas, oil, or water Tripl threatened to shut off services in your home? No 12/01/2024 Social Connection and Isolat ion Panel [NHANES] Answer Date Recorded In a typical week, how many times do you talk on the phone with family, friends, or neighbors? More than three times a week 12/01/2024 How often do you get togethe r with friends or relatives? More than three times a week 12/01/2024 How often do you attend chur ch or amish services? Never 12/01/2024 Do you belong to any clubs o r organizations such as anabaptist groups, unions, fraternal or athletic groups, or school groups? No 12/01/2024 How often do you attend meet ings of the clubs or organizations you belong to? Never 12/01/2024 Are you , , di vorced, , never , or living with a partner? Never 12/01/2024 AUDIT-C Answer Date Recorded Q1: How often [...] care, and heating? Not hard at all 12/01/2024 PHQ-2 Answer Date Recorded PHQ-2 Total Score (If total score is 3 or more points, staff should administer the PHQ-9) 0 08/23/2024 Hunger Vital Sign Answer Date Recorded Within the past 12 months, y ou worried that your food would run out before you got the money to buy more. Never true 12/02/19 25 Within the past 12 months, t he food you bought just didn't last and you didn't have money to get more. Never true 12/01/2024 PRAPARE - Transportation Answer Date Re corded In the past 12 months, has l ack of transportation kept you from medical appointments or from getting medications? No 11/09 In the past 12 months, has l ack of transportation kept you from meetings, work, or from getting things needed for daily living? No 12/01/2024 Housing Stability Vital Sign Answer [place] e [...] the mortgage or rent on time? No 12/01/2024 In the past 12 months, how m any times have you moved where you were living? 0 12/01/2024 At any time in the past 12 m [facility], were you homeless or living in a half-way (including now)? No 12/01/2024 Personal Safety Answer Date Recorded Have you ever been in or are you currently in a harmful physical or emotional relationship or is someone making you feel afraid or unsafe? Denies 11/30/2024 Sex and Gender Information Value Date Recorded Sex Assigned at Not on file Legal Sex Male 3:38 AM SHELF STOCKER Gender Identity Not on file Sexual Orientation Not on file Last Filed Vital Signs Vital Sign Reading Time Taken Comments Blood Pressure 134/93 12/03/2024 11:41 AM CDT Pulse 84 12/03/2024 11:41 AM CDT Temperature 36.7 C (98 F) 12/03/2024 11:41 AM CDT Respiratory Rate 18 12/03/2024 11:41 AM CDT Oxygen Saturation 100% 12/03/2024 11:41 AM CDT Inhaled Oxygen Concentration - - Weight 72.6 kg (160 lb) 11/30/2024 10:52 PM CDT Height 177.8 cm (5' 10) 11/25/2024 10:55 PM CDT Body Mass Index 22.96 11/25/2024 10:55 PM CDT Plan of Treatment Not on file Medical Devices Explanted Type Area Reproduction Production Manager Device Identifier Shelf Expiration Date Model / Serial / Lot [employer] 6572 Connell Flexi-Stent 7fr 5cm Small Pigtail Flexible .035in Stent - [id number] Implanted:Qty: 1 on 09/18/2018 by Vimal Woodruff MD at [facility] Explanted:Qty: 1 on 09/20/2018 at [facility] Stent N/A: Pancreas [employer] 06/10/2023 [id number] / / [id number] Conmed Gina [id number] Parker Viabil 10mm 8.5fr 6cm 200cm Fully Covered Self Expand Pull - [id number] - [id number] Implanted:Qty: 1 on 09/18/2018 by Vimal Woodruff MD at [facility] Explanted:Qty: 1 on 09/20/2018 at [facility] Stent N/A: Bile Duct Conmed Gina 06/29/2021 [id number] / [id number] / [employer] Connell Flexi-Stent 7fr 9cm Small Pigtail Flexible .035in Stent [id number] - [id number] Implanted:Qty: 1 on 02/07/2022 by Vimal Woodruff MD at [facility] Explanted:Qty: 1 on 02/10/2022 by Vimal Woodruff MD at [facility] Stent N/A: Pancreas [employer] 09/07/2026 [id number] / / [id number] [employer] Gina Wallflex 10mm X 60mm Fully Covered Biliary [id number] - [id number] Implanted:Qty: 1 on 02/07/2022 by Vimal Woodruff MD at [facility] Explanted:Qty: 1 on 02/10/2022 by Vimal Woodruff MD at [facility] Stent N/A: Bile Duct [employer] Gina 11/04/2023 [id number] / / [id number] [employer] Connell Flexi-Stent 7fr 9cm Small Pigtail Flexible .035in Stent [id number] - [id number] Implanted:Qty: 1 on 09/21/2023 by Vimal Woodruff MD at [facility] Explanted:Qty: 1 on 09/23/2023 by Vimal Woodruff MD at [facility] Stent N/A: Pancreas [employer] 03/11/2028 [id number] / / [id number] Description:Not present at b eginning of case. Self migrated out [employer] Gina Wallflex 10mm X 60mm Fully Covered Biliary [id number] - [id number] Implanted:Qty: 1 on 09/21/2023 by Vimal Woodruff MD at [facility] Explanted:Qty: 1 on 09/23/2023 by Vimal Woodruff MD at [facility] Stent N/A: Bile Duct [employer] Gina 08/02/2025 [id number] / / [id number] Procedures Procedure Name Priority Date/Time Associated Diagnosis Comments OK CRITICAL CARE ILL/INJURED PATIENT INIT 30-74 MIN Routine 12/01/2024 4:[address] ABDOMEN PELVIS W CONTRAST ED 12/01/2024 2:53 AM CDT EGFR STAT 12/01/2024 1:49 AM CDT DIFFERENTIAL AUTO STAT 12/01/2024 1:4 9 AM CDT LIPASE STAT 12/01/2024 1:49 AM CDT COMPREHENSIVE METABOLIC PANEL STAT 12/01/2024 1:49 AM CDT CBC WITH AUTO DIFFERENTIAL STAT 12/01/2024 1:49 AM CDT ECG 12-LEAD STAT 11/30/2024 10:[address] ABDOMEN PELVIS W CONTRAST ED 11/26/2024 [...] CDT from Last 3 Months Results * OK CRITICAL CARE ILL/INJURED PATIENT INIT 30-74 MIN (12/01/2024 4:04 AM CDT) Narrative Pranav Fernandez MD - 12/01/2024 4:04 AM CDT Pranav Fernandez MD 12/01/2024 4:05 AM Critical Care Performed by: Pranav Fernandez MD Authorized by: Pranav Fernandez MD Critical care provider statement: As reflected in the history, physical exam, orders, notes, and/or MDM, I was personally present while the patient was critically ill and provided critical care services for 30 minutes, excluding time involved in separately billable procedures. Critical care was necessary to treat or prevent imminent or life-threatening deterioration of the following condition(s): enteritis hyperemesis and severe gastrointestinal condition dehydration and severe metabolic condition Critical care was time spent by me providing the following: continuous telemetry, continuous pulse oximetry, interpretation of bedside monitors, imaging, and arterial/venous lab draws, serial bedside patient exams and resuscitation with fluids Critical Care performed by me on 12/01/2024 acute pain control and sedatives and psychotropic medications I provided emergent necessary critical care medicine services to this patient. I ordered and reviewed test results and/or imaging studies. I spent time discussing the management of this critically ill patient with consultants and the medical staff. I spent time discussing the management and therapeutic options for this critically ill patient with the patient themselves or with the appropriate designated surrogate decision-maker. I spent time documenting in the medical record. us Pranav Fernandez MD [facility] E ORDERABLES Final Result * CT Abdomen Pelvis W Contrast (12/01/2024 2:53 AM CDT) Anatomical Region Laterality Modality Body N/A Computed Tomogra phy 12/01/2024 2:50 AM CDT Impressions 12/01/2024 11:41 AM CDT 1. Single borderline distended fluid and gas-filled loop of proximal small bowel and liquid stool in the colon to the level of the descending colon, which are nonspecific findings, but may represent enterocolitis in the appropriate clinical context. 2. Otherwise, no acute abnormality in the abdomen or pelvis. Specifically, there is no evidence of acute pancreatitis as clinically queried. Electronically signed by: Mich Linn M.D. Narrative 12/01/2024 11:41 AM CDT EXAMINATION: Computed tomography of the abdomen and pelvis with intravenous contrast HISTORY: 44-year-old man with suspected acute pancreatitis. TECHNIQUE: Transaxial computed tomographic images of the abdomen and pelvis were obtained with intravenous contrast according to the standard protocol after the uneventful administration of 72 mL Opti-Ray 350 intravenous contrast. COMPARISON: Multiple prior CTs of the abdomen and pelvis with contrast including CT of the abdomen and pelvis dated 11/26/2024. FINDINGS: No pneumonia, pulmonary edema, pleural effusion, or pneumothorax in the imaged portion of the lung bases. Normal heart size. No pericardial effusion or pericardial thickening. Unchanged tiny hypodense lesion in the hepatic dome, which is too small to definitively characterize. No new suspicious hepatic lesion. Small volume pneumobilia, compatible with prior sphincterotomy. The gallbladder is surgically absent. Normal pancreatic parenchyma without evidence of pancreatic ductal dilation. Normal spleen and adrenal glands. The kidneys enhance symmetrically without hydronephrosis or nephrolithiasis. The urinary bladder is normal. The prostate gland contains dystrophic calcifications, but is normal in size. No intraperitoneal free air or free fluid. Normal stomach and duodenal sweep. No bowel wall thickening. Borderline distended fluid and gas-filled loop of distal duodenum/proximal jejunum, which is nonspecific and may represent peristalsis. Liquid stool is seen throughout the colon to the level of the descending colon. The distal colon including the sigmoid colon and rectum are decompressed. Small fat-containing umbilical hernia. Normal caliber abdominal aorta with mild calcified atherosclerosis of the abdominal aorta and its major branches. The portal vein, splenic vein, and superior mesenteric veins are patent without evidence of thrombosis. No suspicious lymphadenopathy in the abdomen or the pelvis. No suspicious lytic or blastic osseous lesion. Procedure Note Mich Linn MD - 12/01/2024 EXAMINATION: Computed tomography of the abdomen and pelvis with intravenous contrast HISTORY: 44-year-old man with suspected acute pancreatitis. TECHNIQUE: Transaxial computed tomographic images of the abdomen and pelvis were obtained with intravenous contrast according to the standard protocol after the uneventful administration of 72 mL Opti-Ray 350 intravenous contrast. COMPARISON: Multiple prior CTs of the abdomen and pelvis with contrast including CT of the abdomen and pelvis dated 11/26/2024. FINDINGS: No pneumonia, pulmonary edema, pleural effusion, or pneumothorax in the imaged portion of the lung bases. Normal heart size. No pericardial effusion or pericardial thickening. Unchanged tiny hypodense lesion in the hepatic dome, which is too small to definitively characterize. No new suspicious hepatic lesion. Small volume pneumobilia, compatible with prior sphincterotomy. The gallbladder is surgically absent. Normal pancreatic parenchyma without evidence of pancreatic ductal dilation. Normal spleen and adrenal glands. The kidneys enhance symmetrically without hydronephrosis or nephrolithiasis. The urinary bladder is normal. The prostate gland contains dystrophic calcifications, but is normal in size. No intraperitoneal free air or free fluid. Normal stomach and duodenal sweep. No bowel wall thickening. Borderline distended fluid and gas-filled loop of distal duodenum/proximal jejunum, which is nonspecific and may represent peristalsis. Liquid stool is seen throughout the colon to the level of the descending colon. The distal colon including the sigmoid colon and rectum are decompressed. Small fat-containing umbilical hernia. Normal caliber abdominal aorta with mild calcified atherosclerosis of the abdominal aorta and its major branches. The portal vein, splenic vein, and superior mesenteric veins are patent without evidence of thrombosis. No suspicious lymphadenopathy in the abdomen or the pelvis. No suspicious lytic or blastic osseous lesion. IMPRESSION: 1. Single borderline distended fluid and gas-filled loop of proximal small bowel and liquid stool in the colon to the level of the descending colon, which are nonspecific findings, but may represent enterocolitis in the appropriate clinical context. 2. Otherwise, no acute abnormality in the abdomen or pelvis. Specifically, there is no evidence of acute pancreatitis as clinically queried. Electronically signed by: Mich Linn M.D. Domenic Arias MD IMG CT PROCEDURES Final Resu lt * eGFR (12/01/2024 1:49 AM CDT) eGFR >90 >=60 mL/min/1. 73 [...] interpretive data was last reviewed 2021. Blood 12/01/2024 1:49 AM CDT 12/01/2024 2:08 AM CDT us Domenic Arias MD LAB BLOOD ORDERABLES Final R esult [facility] [address] Department [place] [address] * (ABNORMAL) Differential, auto (12/01/2024 1:49 AM CDT) Neutrophil abs 8.27(H) 1.50 - 6.50 K/cumm Imm gran abs 0.04 0.00 - 0.10 K/cumm [facility] Lymphocyte abs 1.58 0.80 - 3.30 K/cumm [facility] Monocyte abs 0.97(H) 0.20 - 0.80 K/cumm [facility] Eosinophil abs 0.03 0.00 - 0.50 K/cumm [facility] Basophil abs 0.05 0.00 - 0.10 K/cumm [facility] Neutrophil pct 75.5 % [facility] Comment: Interpretive Data Percent cell count reference ranges are not reported, since discordance with absolute values may lead to misinterpretation of CBC data. Current Interpretive Data was last revised on 2017. Imm gran pct 0.4 % [facility] Comment: Interpretive Data Percent cell count reference ranges are not reported, since discordance with absolute values may lead to misinterpretation of CBC data. Current Interpretive Data was last revised on 2017. Lymphocyte pct 14.4 % [facility] Comment: Interpretive Data Percent cell count reference ranges are not reported, since discordance with absolute values may lead to misinterpretation of CBC data. Current Interpretive Data was last revised on 2017. Monocyte pct 8.9 % [facility] Comment: Interpretive Data Percent cell count reference ranges are not reported, since discordance with absolute values may lead to misinterpretation of CBC data. Current Interpretive Data was last revised on 2017. Eosinophil pct 0.3 % [facility] Comment: Interpretive Data Percent cell count reference ranges are not reported, since discordance with absolute values may lead to misinterpretation of CBC data. Current Interpretive Data was last revised on 2017. Basophil pct 0.5 % [facility] Comment: Interpretive Data Percent cell count reference ranges are not reported, since discordance with absolute values may lead to misinterpretation of CBC data. Current Interpretive Data was last revised on 2017. Blood 12/01/2024 1:49 AM CDT 12/01/2024 2:08 AM CDT Domenic Arias MD LAB BLOOD ORDERABLES Final R esult Performing Organization Address [facility]/ZIP Co de Phone Number [facility] [address] [employer] [place] [address] * (ABNORMAL) CBC with auto differential (12/01/2024 1:49 AM CDT) WBC 10.94(H) 3.80 - 9.90 K/cumm Hgb 13.5 13.0 - 17.5 g/dL [facility] Hct 40.4 38.9 - 50.3 % [facility] Plt 242 150 - 400 K/cumm [facility] MPV 10.5 9.1 - 12.3 fL [facility] RBC 4.59 4.30 - 5.80 M/cumm [facility] MCV 88.0 81.3 - 96.4 fL [facility] MCH 29.4 27.1 - 33.3 pg [facility] MCHC 33.4 32.3 - 35.7 g/dL [facility] RDW CV 15.7(H) 11.1 - 14.9 % [facility] RDW SD 50.5(H) 35.7 - 48.1 fL [facility] NRBC abs 0.00 0.00 - 0.01 K/cumm [facility] Blood 12/01/2024 1:49 AM CDT 12/01/2024 2:08 AM CDT Domenic Arias MD LAB BLOOD ORDERABLES Final R esult Performing Organization Address City/[facility]/ZIP Co de Phone Number [facility] [address] [employer] [place] [address] [phone] * Lipase (12/01/2024 1:49 AM CDT) Pathologist [facility] Lipase 23 10 - 99 Units/L Blood 12/01/2024 1:49 AM CDT 12/01/2024 2:08 AM CDT us Domenic Arias MD LAB BLOOD ORDERABLES Final R esult [facility] [address] Department [place] [address] * (ABNORMAL) Comprehensive metabolic panel (12/01/2024 1:49 AM CDT) Pathologist [facility] Sodium 142 135 - 145 mmol/L Potassium, pl 4.2 3.3 - 4.9 mmol/L [facility] Chloride 106 97 - 110 mmol/L [facility] CO2 23 22 - 32 mmol/L [facility] Anion gap 13 2 - 15 mmol/L [facility] BUN 6 6 - 25 mg/dL [facility] Creatinine 0.86 0.80 - 1.30 mg/dL [facility] Glucose 99 70 - 199 mg/dL [facility] Comment: Interpretive Data Fasting glucose [...] 2022. Calcium 9.3 8.5 - 10.3 mg/dL [facility] Bilirubin, total 0.6 0.1 - 1.2 mg/dL [facility] Protein, pl 6.2(L) 6.5 - 8.5 g/dL [facility] Albumin 4.0 3.5 - 5.0 g/dL [facility] Alk phos 76 40 - 130 Units/L [facility] ALT 17 7 - 55 Units/L [facility] AST 20 10 - 50 Units/L [facility] Blood 12/01/2024 1:49 AM CDT 12/01/2024 2:08 AM CDT Domenic Arias MD LAB BLOOD ORDERABLES Final R esult Performing Organization Address [facility] Co de Phone Number [facility] [address] Department [place] [address] * ECG 12 lead (11/30/2024 10:57 PM CDT) 11/30/2024 10:5 7 PM CDT Narrative [facility] 12/01/2024 7:47 AM CDT Vent Rate: 64 bpm RR Interval: 926 msec OK Interval: 91 msec QRS Duration: 104 msec QT Interval: 382 msec QTC Interval: 392 msec P-R-T [place]: 12 - 72 - 72 degrees IMPRESSION: SINUS RHYTHM WITH SINUS ARRHYTHMIA WITH SHORT OK INTERVAL INCOMPLETE RIGHT BUNDLE BRANCH BLOCK BORDERLINE ECG Electronically Signed By: Mich Quintana MD PhD Domenic Arias MD ECG ORDERABLES Final Result Performing Organization Address [facility] de Phone Number [facility] [employer] [facility] * CT Abdomen Pelvis W Contrast (11/26/2024 [...] clear. Heart size normal. No effusion. LIVER/BILIARY: Ekzi-ck-dhfhkzhx steatosis. Unchanged pneumobilia. GALLBLADDER: Absent. SPLEEN: Normal. [...] Aryan Jovel M.D. AR: GIOVANNA Report ID: [id number] Reading Location: [id number] Procedure Note Aryan Jovel MD - 11/26/2024 [...] clear. Heart size normal. No effusion. LIVER/BILIARY: Ejsb-[id number] steatosis. Unchanged pneumobilia. GALLBLADDER: Absent. SPLEEN: Normal. [...] 11/26/2024 4:06 AM - Electronically signed by rAyan Jovel M.D. AR: GIOVANNA Report ID: [id number] Reading Location: [place] [address] us Blue Warren MD IMG CT PROCEDURES F inal Result * Troponin T high-sensitivity 2-hour (11/26/2024 1:13 AM CDT) Trop T hs 8 <=22 ng/L Comment: Interpretive Data For further hscTnT resources including the diagnostic algorithm and an aid in interpretation, copy and paste this link: https://nrl.testcatalog.org/show/hsTrop Current Interpretive Data last revised 2020. Testing performed by: [address] [address] Trop T hs delta -3 ng/L NEEL SMITH Comment:Testing performed by : [address] [address] Trop T hs interp Insignificant NEEL SMITH Comment:Testing performed by : [address] [address] Blood 11/26/2024 1:13 AM CDT 11/26/2024 1:25 AM CDT us Blue Warren MD LAB BLOOD ORDERABLE S Final Result NEEL [address] [facility] Department [place] [address] * Urinalysis reflex to microscopic and culture Urine (11/25/2024 11:13 PM CDT) Color, ur Yellow Yellow Comment:Testing performed by : [address] [address] Clarity, ur Clear Clear NEEL Comment:Testing performed by : [address] [address] Specific gravity, ur 1.020 1.003 - 1.030 NEEL Comment:Testing performed by : [address], [place]., [address] pH, urine 6.0 NEEL Comment: Interpretive Data U rine pH is affected by diet, medications, systemic acid-base disturbances, and renal tubular function. pH may affect urinary stone formation. For example, urine pH below 6.0 may help reduce the tendency for calcium phosphate stones and pH greater than 6.0 may reduce the tendency for uric acid stone formation. Source: [facility] [employer] Current Interpretive Data was last revised on 2017 Testing performed by: [address] [address] Protein, ur ql Negative Negative NEEL Comment:Testing performed by : [address] [address] Glucose, ur ql Negative Negative NEEL Comment:Testing performed by : [address], [place]., [address] Ketones, ur Negative Negative NEEL Comment:Testing performed by : [address] [address] Bilirubin, ur Negative Negative NEEL Comment:Testing performed by : [address] [address] Blood, ur Negative Negative NEEL Comment:Testing performed by : [address] [address] Urobilinogen, ur <2.0 <2.0 mg/dL NEEL Comment:Testing performed by : [address] [address] Nitrite, ur Negative Negative NEEL Comment:Testing performed by : [address] [address] Leukocyte esterase, ur Negative Negative NEEL Comment:Testing performed by : [address] [address] UA reflex comment Reflex conditions for microscopic UA and culture not met. NEEL Comment:Testing performed by : [address] [address] Urine 11/25/2024 11:1 3 PM CDT 11/25/2024 11:24 PM CDT Blue Warren MD LAB MICROBIOLOGY - GENERAL ORDERABLES Final Result Performing Organization Address [facility] de Phone Number NEEL [address] [address] * Troponin T high-sensitivity series (baseline, 2hr, 4hr, 6hr) (11/25/2024 11:06 PM CDT) Pathologist [facility] Trop T hs 11 <=22 ng/L Comment: Interpretive Data For further hscTnT resources including the diagnostic algorithm and an aid in interpretation, copy and paste this link: https://nrl.testcatalog.org/show/hsTrop Current Interpretive Data last revised 2020. Testing performed by: [address] [address] Blood 11/25/2024 11:0 6 PM CDT 11/25/2024 11:24 PM CDT Blue Warren MD LAB BLOOD ORDERABLE S Final Result Performing Organization Address [facility] de Phone Number [address] [employer] [address] * eGFR (11/25/2024 11:06 PM CDT) eGFR [...] was last reviewed 2021. Testing performed by: [address] [address] Blood 11/25/2024 11:0 6 PM CDT 11/25/2024 11:24 PM CDT us Blue Warren MD LAB BLOOD ORDERABLE S Final Result [facility] Department [place] [address] * (ABNORMAL) Differential, auto (11/25/2024 11:06 PM CDT) Neutrophil abs 13.59(H) 1.50 - 6.50 K/cumm Comment:Testing performed by : [address] [address] Imm gran abs 0.11(H) 0.00 - 0.10 K/cumm NEEL Comment:Testing performed by : [address] [address] Lymphocyte abs 1.24 0.80 - 3.30 K/cumm NEEL Comment:Testing performed by : [address] [address] Monocyte abs 0.90(H) 0.20 - 0.80 K/cumm NEEL Comment:Testing performed by : [address] [address] Eosinophil abs 0.02 0.00 - 0.50 K/cumm NEEL Comment:Testing performed by : [address] [address] Basophil abs 0.05 0.00 - 0.10 K/cumm NEEL Comment:Testing performed by : [facility], [address] [place] [address]., [address] Neutrophil pct 85.4 % NEEL Comment: Interpretive Data Percent cell count reference ranges are not reported, since discordance with absolute values may lead to misinterpretation of CBC data. Current Interpretive Data was last revised on 2017. Testing performed by: [address] [address] Imm gran pct 0.7 % NEEL Comment: Interpretive Data Percent cell count reference ranges are not reported, since discordance with absolute values may lead to misinterpretation of CBC data. Current Interpretive Data was last revised on 2017. Testing performed by: [address] [address] Lymphocyte pct 7.8 % NEEL Comment: Interpretive Data Percent cell count reference ranges are not reported, since discordance with absolute values may lead to misinterpretation of CBC data. Current Interpretive Data was last revised on 2017. Testing performed by: [address] [address] Monocyte pct 5.7 % NEEL Comment: Interpretive Data Percent cell count reference ranges are not reported, since discordance with absolute values may lead to misinterpretation of CBC data. Current Interpretive Data was last revised on 2017. Testing performed by: [address] [address] Eosinophil pct 0.1 % NEEL Comment: Interpretive Data Percent cell count reference ranges are not reported, since discordance with absolute values may lead to misinterpretation of CBC data. Current Interpretive Data was last revised on 2017. Testing performed by: [address] [address] Basophil pct 0.3 % [facility] Comment: Interpretive Data Percent cell count reference ranges are not reported, since discordance with absolute values may lead to misinterpretation of CBC data. Current Interpretive Data was last revised on 2017. Testing performed by: [address] [address] Blood 11/25/2024 11:0 6 PM CDT 11/25/2024 11:24 PM CDT us Blue Warren MD LAB BLOOD ORDERABLE S Final Result NEEL [address] [facility] Department [place] [address] * (ABNORMAL) CBC with auto differential (11/25/2024 11:06 PM CDT) [facility] WBC 15.91(H) 3.80 - 9.90 K/cumm Comment:Testing performed by : [address] [address] Hgb 15.1 13.0 - 17.5 g/dL NEEL Comment:Testing performed by : [address] [address] Hct 44.2 38.9 - 50.3 % NEEL Comment:Testing performed by : [address] [address] Plt 300 150 - 400 K/cumm NEEL Comment:Testing performed by : [address] [address] MPV 9.7 9.1 - 12.3 fL NEEL Comment:Testing performed by : [address] [address] RBC 5.26 4.30 - 5.80 M/cumm NEEL Comment:Testing performed by : [address] [address] MCV 84.0 81.3 - 96.4 fL NEEL Comment:Testing performed by : [address] [address] MCH 28.7 27.1 - 33.3 pg NEEL SMITH Comment:Testing performed by : [address] [address] MCHC 34.2 32.3 - 35.7 g/dL NEEL Comment:Testing performed by : [address] [address] RDW CV 15.2(H) 11.1 - 14.9 % NEEL SMITH Comment:Testing performed by : [address] [address] RDW SD 46.3 35.7 - 48.1 fL NEEL SMITH Comment:Testing performed by : [address] [address] NRBC abs 0.00 0.00 - 0.01 K/cumm NEEL SMITH Comment:Testing performed by : [address] [address] Blood Venous blood specimen / Unknown 11/25/2024 11:06 PM CDT 11/25/2024 11:24 PM CDT Blue Warren MD LAB BLOOD ORDERABLE S Final Result Performing Organization Address City/[facility]/ZIP Co de Phone Number [address] [place] [address] * Lipase (11/25/2024 11:06 PM CDT) Pathologist [facility] Lipase 24 10 - 99 Units/L Comment:Testing performed by : [address] [address] Blood Venous blood specimen / Unknown 11/25/2024 11:06 PM CDT 11/25/2024 11:24 PM CDT us Blue Warren MD LAB BLOOD ORDERABLE S Final Result Performing Organization Address City/[facility] Co de Phone Number [address] [address] * (ABNORMAL) Comprehensive metabolic panel (11/25/2024 11:06 PM CDT) Pathologist [facility] Sodium 140 135 - 145 mmol/L Comment:Testing performed by : [address] [address] Potassium, pl 4.1 3.3 - 4.9 mmol/L NEEL SMITH Comment:Testing performed by : [address] [address] Chloride 102 97 - 110 mmol/L NEEL Comment:Testing performed by : [address], [place]., [address] CO2 24 22 - 32 mmol/L NEEL Comment:Testing performed by : [address], [place]., [address] Anion gap 14 2 - 15 mmol/L NEEL Comment:Testing performed by : [address], [place]., [address] BUN 10 6 - 25 mg/dL [facility] Comment:Testing performed by : [address], [place]., [address] Creatinine 1.01 0.80 - 1.30 mg/dL NEEL Comment:Testing performed by : [address], [place]., [address] Glucose 115 70 - 199 mg/dL [facility] Comment: Interpretive Data Fasting glucose >/= [...] was last revised 2022. Testing performed by: [address] [address] Calcium 10.5(H) 8.5 - 10.3 mg/dL [facility] Comment:Testing performed by : [address] [address] Bilirubin, total 0.4 0.1 - 1.2 mg/dL NEEL Comment:Testing performed by : [address] [address] Protein, pl 7.4 6.5 - 8.5 g/dL NEEL Comment:Testing performed by : [address], [place]., [address] Albumin 4.5 3.5 - 5.0 g/dL NEEL SMITH Comment:Testing performed by : [facility], [address] [place] [address]., [address] Alk phos 89 40 - 130 Units/L NEEL Comment:Testing performed by : [address] [address] ALT 19 7 - 55 Units/L NEEL SMITH Comment:Testing performed by : [address] [address] AST 21 10 - 50 Units/L NEEL Comment:Testing performed by : [address], [address] Blood 11/25/2024 11:0 6 PM CDT 11/25/2024 11:24 PM CDT us Blue Warren MD LAB BLOOD ORDERABLE S Final Result Performing Organization Address City/[facility]/ZIP Co de Phone Number [place] [phone] [facility] Department [place] [address] * ECG 12 lead (11/25/2024 11:02 PM CDT) Ventricular Rate EKG/Min 74 BPM [facility] Atrial Rate 74 BPM [facility] OK-Interval (MSEC) 80 ms [facility] QRS-Interval (MSEC) 96 ms [facility] QT-Interval (MSEC) 354 ms [facility] QTc 392 ms [facility] P [place] -18 degrees [facility] R [place] 32 degrees [facility] T [place] 56 degrees [facility] Diagnosis Sinus rhythm with sinus arrhythmia with short OK Otherwise normal ECG When compared with ECG of 13-OCT-2024 03:54, No significant change was found Confirmed by DARIEL CARLOS M.D. ([id number]) on 11/26/2024 10:02:21 PM [facility] 11/25/2024 11:0 2 PM CDT 11/26/2024 10:02 PM CDT us Blue Warren MD ECG ORDERABLES Fin al Result [facility] * CT Abdomen Pelvis W Contrast [...] ur Yellow Yellow Clarity, ur Turbid(A) Clear [facility] Specific gravity, ur 1.014 1.003 - 1.030 [facility] pH, urine 7.5 [facility] Comment: Interpretive Data U rine pH is affected by diet, medications, systemic acid-base disturbances, and renal tubular function. pH may affect urinary stone formation. For example, urine pH below 6.0 may help reduce the tendency for calcium phosphate stones and pH greater than 6.0 may reduce the tendency for uric acid stone formation. Source: [facility] Current Interpretive Data was last revised on 2017 Protein, ur ql Trace Negative [facility] Glucose, ur ql Negative Negative [facility] Ketones, ur 1+(A) Negative [facility] Bilirubin, ur Negative Negative [facility] Blood, ur Negative Negative [facility] Urobilinogen, ur <2.0 <2.0 mg/dL [facility] Nitrite, ur Negative Negative [facility] Leukocyte esterase, ur Negative Negative [facility] UA reflex comment Reflex conditions for microscopic UA and culture not met. [facility] Urine 10/18/2024 3:34 PM CDT 10/18/2024 3:34 PM CDT Oswaldo Burns MD LAB MICROBIOLOGY - GENERAL ORDERABLES Final Result [facility] [address] Department [place] [address] * eGFR (10/18/2024 12:48 PM CDT) Pathologist [facility] eGFR >90 >=60 mL/min/1. 73 m2 [...] LAB BLOOD ORDERABLES Final R esult NEEL [facility] [address] Department [place] [address] * (ABNORMAL) Differential, auto (10/18/2024 12:48 PM CDT) Pathologist [facility] Neutrophil abs 12.53(H) 1.50 - 6.50 K/cumm Imm gran abs 0.08 0.00 - 0.10 K/cumm [facility] Lymphocyte abs 1.17 0.80 - 3.30 K/cumm [facility] Monocyte abs 1.45(H) 0.20 - 0.80 K/cumm [facility] Eosinophil abs 0.07 0.00 - 0.50 K/cumm [facility] Basophil abs 0.07 0.00 - 0.10 K/cumm [facility] Neutrophil pct 81.5 % [facility] Comment: Interpretive Data Percent cell count reference ranges are not reported, since discordance with absolute values may lead to misinterpretation of CBC data. Current Interpretive Data was last revised on 2017. Imm gran pct 0.5 % [facility] Comment: Interpretive Data Percent cell count reference ranges are not reported, since discordance with absolute values may lead to misinterpretation of CBC data. Current Interpretive Data was last revised on 2017. Lymphocyte pct 7.6 % [facility] Comment: Interpretive Data Percent cell count reference ranges are not reported, since discordance with absolute values may lead to misinterpretation of CBC data. Current Interpretive Data was last revised on 2017. Monocyte pct 9.4 % [facility] Comment: Interpretive Data Percent cell count reference ranges are not reported, since discordance with absolute values may lead to misinterpretation of CBC data. Current Interpretive Data was last revised on 2017. Eosinophil pct 0.5 % [facility] Comment: Interpretive Data Percent cell count reference ranges are not reported, since discordance with absolute values may lead to misinterpretation of CBC data. Current Interpretive Data was last revised on 2017. Basophil pct 0.5 % [facility] Comment: Interpretive Data Percent cell count reference ranges are not reported, since discordance with absolute values may lead to misinterpretation of CBC data. Current Interpretive Data was last revised on 2017. Blood 10/18/2024 12:4 8 PM CDT 10/18/2024 1:27 PM CDT us Oswaldo Burns MD LAB BLOOD ORDERABLES Final Result [facility] [address] Department of Laboratories [place], [place] [id number] * (ABNORMAL) CBC with auto differential (10/18/2024 12:48 PM CDT) WBC 15.37(H) 3.80 - 9.90 K/cumm Hgb 14.6 13.0 - 17.5 g/dL [facility] Hct 43.2 38.9 - 50.3 % [facility] Plt 353 150 - 400 K/cumm [facility] MPV 10.0 9.1 - 12.3 fL [facility] RBC 5.10 4.30 - 5.80 M/cumm [facility] MCV 84.7 81.3 - 96.4 fL [facility] MCH 28.6 27.1 - 33.3 pg [facility] MCHC 33.8 32.3 - 35.7 g/dL [facility] RDW CV 15.8(H) 11.1 - 14.9 % [facility] RDW SD 48.2(H) 35.7 - 48.1 fL [facility] NRBC abs 0.00 0.00 - 0.01 K/cumm [facility] Blood Venous blood specimen / Unknown 10/18/2024 12:48 PM CDT 10/18/2024 1:27 PM CDT Oswaldo Burns MD LAB BLOOD ORDERABLES Final Result Performing Organization Address City/[facility]/ZIP Co de Phone Number [facility] [address] [facility] [place] [address] * Lipase (10/18/2024 12:48 PM CDT) Pathologist [facility] Lipase 36 10 - 99 Units/L Blood Venous blood specimen / Unknown 10/18/2024 12:48 PM CDT 10/18/2024 1:27 PM CDT Oswaldo Burns MD LAB BLOOD ORDERABLES Final Result [facility] [address] [employer] [address] * (ABNORMAL) Comprehensive metabolic panel (10/18/2024 12:48 PM CDT) Pathologist [facility] Sodium 141 135 - 145 mmol/L Potassium, pl 3.8 3.3 - 4.9 mmol/L [facility] Chloride 103 97 - 110 mmol/L [facility] CO2 22 22 - 32 mmol/L [facility] Anion gap 16(H) 2 - 15 mmol/L [facility] BUN 9 6 - 25 mg/dL [facility] Creatinine 1.01 0.80 - 1.30 mg/dL [facility] Glucose 132 70 - 199 mg/dL [facility] Comment: Interpretive Data Fasting glucose [...] 2022. Calcium 9.8 8.5 - 10.3 mg/dL [facility] Bilirubin, total 0.7 0.1 - 1.2 mg/dL [facility] Protein, pl 7.3 6.5 - 8.5 g/dL [facility] Albumin 4.4 3.5 - 5.0 g/dL [facility] Alk phos 83 40 - 130 Units/L [facility] ALT 22 7 - 55 Units/L [facility] AST 28 10 - 50 Units/L [facility] Blood 10/18/2024 12:4 8 PM CDT 10/18/2024 1:27 PM CDT us Oswaldo Burns MD LAB BLOOD ORDERABLES Final Result [facility] [address] [place] [address] * Lipase - Add on lab test (10/14/2024 4:29 AM CDT) Acceptable Yes Blood 10/14/2024 4:29 AM CDT 10/14/2024 4:29 AM CDT Narrative NEEL TURNER - 10/14/2024 4:30 AM CDT Name of Test->Lipase us Yusef Bear MD LAB BLOOD ORDERABLES Final Result [facility] [address] Department [place] [address] * CT Abdomen Pelvis W Contrast (10/14/2024 1:38 AM CDT) Anatomical Region Laterality Modality Body N/A Computed Tomogra phy 10/14/2024 1:29 AM CDT Impressions 10/14/2024 9:11 AM CDT No acute abnormality in the abdomen or pelvis. No pancreatitis. For the purposes of quality control coordinator, this study was initially interpreted by [...] pancreatitis. For the purposes of quality control coordinator, this study was initially interpreted by teleradiology. There is no significant discrepancy. Dictated by: López Wynn MD The radiology attending physician has personally reviewed this study, and had reviewed and/or edited this written report and agrees with it. Electronically signed by: Freddy Moreno M.D., MPH Nasir Reyez DO IM CT PROCEDURES Final Res ult * (ABNORMAL) Urinalysis reflex to microscopic and culture Urine (10/13/2024 10:10 PM CDT) Color, ur Yellow Yellow Clarity, ur Clear Clear [facility] Specific gravity, ur 1.010 1.003 - 1.030 [facility] pH, urine 6.5 [facility] Comment: Interpretive Data U rine [...] on 2017 Protein, ur ql Negative Negative [facility] Glucose, ur ql Negative Negative [facility] Ketones, ur 1+(A) Negative [facility] Bilirubin, ur Negative Negative [facility] Blood, ur Negative Negative [facility] Urobilinogen, ur <2.0 <2.0 mg/dL [facility] Nitrite, ur Negative Negative [facility] Leukocyte esterase, ur Negative Negative [facility] UA reflex comment Reflex conditions for microscopic UA and culture not met. [facility] Urine 10/13/2024 10:1 0 PM CDT 10/13/2024 10:11 PM CDT Abdiel Donaldson MD LAB MICROBIOLOGY - GENERAL O RDERABLES Final Result [facility] [address] Department [place] [address] * eGFR (10/13/2024 10:06 PM CDT) eGFR [...] MD LAB BLOOD ORDERABLES Final R esult [facility] [address] Department [place] [address] * (ABNORMAL) Differential, auto (10/13/2024 10:06 PM CDT) Neutrophil abs 11.31(H) 1.50 - 6.50 K/cumm Imm gran abs 0.06 0.00 - 0.10 K/cumm [facility] Lymphocyte abs 1.47 0.80 - 3.30 K/cumm [facility] Monocyte abs 1.09(H) 0.20 - 0.80 K/cumm [facility] Eosinophil abs 0.07 0.00 - 0.50 K/cumm [facility] Basophil abs 0.04 0.00 - 0.10 K/cumm [facility] Neutrophil pct 80.5 % [facility] Comment: Interpretive Data Percent cell count reference ranges are not reported, since discordance with absolute values may lead to misinterpretation of CBC data. Current Interpretive Data was last revised on 2017. Imm gran pct 0.4 % [facility] Comment: Interpretive Data Percent cell count reference ranges are not reported, since discordance with absolute values may lead to misinterpretation of CBC data. Current Interpretive Data was last revised on 2017. Lymphocyte pct 10.5 % [facility] Comment: Interpretive Data Percent cell count reference ranges are not reported, since discordance with absolute values may lead to misinterpretation of CBC data. Current Interpretive Data was last revised on 2017. Monocyte pct 7.8 % [facility] Comment: Interpretive Data Percent cell count reference ranges are not reported, since discordance with absolute values may lead to misinterpretation of CBC data. Current Interpretive Data was last revised on 2017. Eosinophil pct 0.5 % [facility] Comment: Interpretive Data Percent cell count reference ranges are not reported, since discordance with absolute values may lead to misinterpretation of CBC data. Current Interpretive Data was last revised on 2017. Basophil pct 0.3 % [facility] Comment: Interpretive Data Percent cell count reference ranges are not reported, since discordance with absolute values may lead to misinterpretation of CBC data. Current Interpretive Data was last revised on 2017. Blood 10/13/2024 10:0 6 PM CDT 10/13/2024 10:43 PM CDT us Abdiel Donaldson MD LAB BLOOD ORDERABLES Final R esult [facility] [address] Department [place] [address] * (ABNORMAL) CBC with auto differential (10/13/2024 10:06 PM CDT) WBC 14.04(H) 3.80 - 9.90 K/cumm Hgb 14.1 13.0 - 17.5 g/dL [facility] Hct 43.6 38.9 - 50.3 % [facility] Plt 312 150 - 400 K/cumm [facility] MPV 10.3 9.1 - 12.3 fL [facility] RBC 5.01 4.30 - 5.80 M/cumm [facility] MCV 87.0 81.3 - 96.4 fL [facility] MCH 28.1 27.1 - 33.3 pg [facility] MCHC 32.3 32.3 - 35.7 g/dL [facility] RDW CV 15.6(H) 11.1 - 14.9 % [facility] RDW SD 49.1(H) 35.7 - 48.1 fL [facility] NRBC abs 0.00 0.00 - 0.01 K/cumm [facility] Blood Venous blood specimen / Unknown 10/13/2024 10:06 PM CDT 10/13/2024 10:43 PM CDT Abdiel Donaldson MD LAB BLOOD ORDERABLES Final R esult Performing Organization Address City/[facility]/ZIP Co de Phone Number [facility] [address] Department [place] [employer] [address] * (ABNORMAL) Lipase (10/13/2024 10:06 PM CDT) Pathologist [facility] Lipase 119(H) 10 - 99 Units/L Blood 10/13/2024 10:0 6 PM CDT 10/13/2024 10:43 PM CDT Abdiel Donaldson MD LAB BLOOD ORDERABLES Final R esult Performing Organization Address [facility] Co de Phone Number [facility] [address] Department [place] [employer] [address] * (ABNORMAL) Comprehensive metabolic panel (10/13/2024 10:06 PM CDT) [facility] Sodium 144 135 - 145 mmol/L Potassium, pl 3.7 3.3 - 4.9 mmol/L [facility] Chloride 104 97 - 110 mmol/L [facility] CO2 22 22 - 32 mmol/L [facility] Anion gap 18(H) 2 - 15 mmol/L [facility] BUN 7 6 - 25 mg/dL [facility] Creatinine 0.91 0.80 - 1.30 mg/dL [facility] Glucose 95 70 - 199 mg/dL [facility] Comment: Interpretive Data Fasting glucose [...] 2022. Calcium 9.3 8.5 - 10.3 mg/dL [facility] Bilirubin, total 0.4 0.1 - 1.2 mg/dL [facility] Protein, pl 7.0 6.5 - 8.5 g/dL [facility] Albumin 4.5 3.5 - 5.0 g/dL [facility] Alk phos 82 40 - 130 Units/L [facility] ALT 16 7 - 55 Units/L [facility] AST 19 10 - 50 Units/L [facility] Blood Venous blood specimen / Unknown 10/13/2024 10:06 PM CDT 10/13/2024 10:43 PM CDT Abdiel Donaldson MD LAB BLOOD ORDERABLES Final R esult Performing Organization Address City/[facility] Co de Phone Number [facility] [address] Department [place] [address] * ECG 12 lead (10/13/2024 9:51 PM CDT) 10/13/2024 9:51 PM CDT Narrative [facility] - 10/14/2024 9:31 AM CDT Vent Rate: 68 bpm RR Interval: 880 msec OK Interval: 129 msec QRS Duration: 113 msec QT Interval: 357 msec QTC Interval: 374 msec P-R-T [place]: 26 - 53 - 61 degrees IMPRESSION: SINUS RHYTHM WITH A BORDERLINE SHORT OK INTERVAL WITH MARKED SINUS ARRHYTHMIA INCOMPLETE RIGHT BUNDLE-BRANCH BLOCK BORDERLINE ECG Electronically Signed By: Calvin Sanabria MD mobap us Jose Francisco Jessica MD ECG ORDERABLES Final Resu lt Performing Organization Address [facility] Co de Phone Number [facility] [employer] [facility] * (ABNORMAL) Differential, auto (10/13/2024 7:40 AM CDT) Neutrophil abs 12.72(H) 1.50 - 6.50 K/cumm Imm gran abs 0.06 0.00 - 0.10 K/cumm [facility] Lymphocyte abs 0.98 0.80 - 3.30 K/cumm [facility] Monocyte abs 0.59 0.20 - 0.80 K/cumm [facility] Eosinophil abs 0.01 0.00 - 0.50 K/cumm [facility] Basophil abs 0.04 0.00 - 0.10 K/cumm [facility] Neutrophil pct 88.3 % [facility] Comment: Interpretive Data Percent cell count reference ranges are not reported, since discordance with absolute values may lead to misinterpretation of CBC data. Current Interpretive Data was last revised on 2017. Imm gran pct 0.4 % [facility] Comment: Interpretive Data Percent cell count reference ranges are not reported, since discordance with absolute values may lead to misinterpretation of CBC data. Current Interpretive Data was last revised on 2017. Lymphocyte pct 6.8 % [facility] Comment: Interpretive Data Percent cell count reference ranges are not reported, since discordance with absolute values may lead to misinterpretation of CBC data. Current Interpretive Data was last revised on 2017. Monocyte pct 4.1 % [facility] Comment: Interpretive Data Percent cell count reference ranges are not reported, since discordance with absolute values may lead to misinterpretation of CBC data. Current Interpretive Data was last revised on 2017. Eosinophil pct 0.1 % [facility] Comment: Interpretive Data Percent cell count reference ranges are not reported, since discordance with absolute values may lead to misinterpretation of CBC data. Current Interpretive Data was last revised on 2017. Basophil pct 0.3 % [facility] Comment: Interpretive Data Percent cell count reference ranges are not reported, since discordance with absolute values may lead to misinterpretation of CBC data. Current Interpretive Data was last revised on 2017. Blood 10/13/2024 7:40 AM CDT 10/13/2024 7:42 AM CDT us Rodney Mejia MD LAB BLOOD ORDERABLES Fi nal Result [facility] [address] Department [place] [address] * (ABNORMAL) CBC with auto differential (10/13/2024 7:40 AM CDT) WBC 14.40(H) 3.80 - 9.90 K/cumm Hgb 13.1 13.0 - 17.5 g/dL [facility] Hct 40.8 38.9 - 50.3 % [facility] Plt 242 150 - 400 K/cumm [facility] MPV 9.9 9.1 - 12.3 fL [facility] RBC 4.61 4.30 - 5.80 M/cumm [facility] MCV 88.5 81.3 - 96.4 fL [facility] MCH 28.4 27.1 - 33.3 pg [facility] MCHC 32.1(L) 32.3 - 35.7 g/dL [facility] RDW CV 15.4(H) 11.1 - 14.9 % [facility] RDW SD 49.5(H) 35.7 - 48.1 fL [facility] NRBC abs 0.00 0.00 - 0.01 K/cumm [facility] Blood 10/13/2024 7:40 AM CDT 10/13/2024 7:42 AM CDT Narrative [facility] - 10/13/2024 7:45 AM CDT For after fluids Rodney Mejia MD LAB BLOOD ORDERABLES Fi nal Result Performing Organization Address [facility] Co de Phone Number [address] [employer] [place] [address] * Sepsis Lactate w/ Reflex (10/13/2024 4:57 AM CDT) Sepsis Lactate 1.1 0.7 - 2.0 mmol/L Blood 10/13/2024 4:57 AM CDT 10/13/2024 4:59 AM CDT Rodney Mejia MD LAB BLOOD ORDERABLES Fi nal Result Performing Organization Address [facility] Co de Phone Number [address] [employer] [address] * (ABNORMAL) Drugs of Abuse Screen, Urine [...] 2022. Barbiturates, ur Not Detected CutOff 200ng/mL [facility] Comment: Interpretive Data - Barbiturates: Samples containing greater than 200 ng/mL secobarbital or other cross-reacting barbiturate compounds are reported as positive. False positive and false negative results are possible. Confirmatory testing required for definitive results. Current Interpretive Data was last reviewed 2022. Benzodiazepines, ur Not Detected CutOff 100ng/mL [facility] Comment: Interpretive Data - Benzodiazepines: Samples containing greater than 100 ng/mL nordiazepam or other cross-reacting compounds are reported as positive. False positive and false negative results are possible. Confirmatory testing required for definitive results. Current Interpretive Data was last reviewed 2022. Cannabinoids, ur Screen Positive, presumptive (A) CutOff 50 ng/mL [facility] Comment: Interpretive Data - Cannabinoids: Samples containing greater than 50 ng/mL delta-9 THC -COOH or other cross- reacting compounds are reported as positive. False positive and false negative results are possible. Confirmatory testing required for definitive results. Current Interpretive Data was last reviewed 2022. Cocaine, ur Not Detected CutOff 150ng/mL [facility] Comment: Interpretive Data - Cocaine: Samples [...] 2023. Methadone, ur Not Detected CutOff 300ng/mL [facility] Comment: Interpretive Data - Methadone: Samples containing [...] AM CDT 10/13/2024 4:16 AM CDT Narrative [facility] - 10/13/2024 4:45 AM CDT Drug of Abuse screening is performed by immunoassay for medical purposes only. This is not to be used for Pain Management purposes. If Detected, confirmation testing will be performed for Amphetamines, Cocaine, Fentanyl, Methadone, Opiates, Oxycodone or Phencyclidine. Rodney Mejia MD LAB URINE ORDERABLES nal Result [facility] [address] [place] [address] * Troponin T high-sensitivity series (baseline, 2hr, 4hr, 6hr) (10/13/2024 4:08 AM CDT) Pathologist [facility] Trop T hs <6 <=22 ng/L Comment: Interpretive Data For further hscTnT resources including the diagnostic algorithm and an aid in interpretation, copy and paste this link: [email or web address].testcatalog.org/[email or web address] Current Interpretive Data last revised 2020. Blood 10/13/2024 4:08 AM CDT 10/13/2024 4:16 AM CDT us Rodney Mejia MD LAB BLOOD ORDERABLES Fi nal Result [facility] [address] [address] * eGFR (10/13/2024 4:08 AM CDT) [facility] eGFR 83 >=60 mL/min/1. 73 m2 Comment: [...] MD LAB BLOOD ORDERABLES Fi nal Result [facility] [address] Department [place] [address] * (ABNORMAL) Differential, auto (10/13/2024 4:08 AM CDT) Neutrophil abs 12.87(H) 1.50 - 6.50 K/cumm Imm gran abs 0.09 0.00 - 0.10 K/cumm [facility] Lymphocyte abs 2.58 0.80 - 3.30 K/cumm [facility] Monocyte abs 1.61(H) 0.20 - 0.80 K/cumm [facility] Eosinophil abs 0.19 0.00 - 0.50 K/cumm [facility] Basophil abs 0.07 0.00 - 0.10 K/cumm [facility] Neutrophil pct 74.0 % [facility] Comment: Interpretive Data Percent cell count reference ranges are not reported, since discordance with absolute values may lead to misinterpretation of CBC data. Current Interpretive Data was last revised on 2017. Imm gran pct 0.5 % [facility] Comment: Interpretive Data Percent cell count reference ranges are not reported, since discordance with absolute values may lead to misinterpretation of CBC data. Current Interpretive Data was last revised on 2017. Lymphocyte pct 14.8 % [facility] Comment: Interpretive Data Percent cell count reference ranges are not reported, since discordance with absolute values may lead to misinterpretation of CBC data. Current Interpretive Data was last revised on 2017. Monocyte pct 9.2 % [facility] Comment: Interpretive Data Percent cell count reference ranges are not reported, since discordance with absolute values may lead to misinterpretation of CBC data. Current Interpretive Data was last revised on 2017. Eosinophil pct 1.1 % [facility] Comment: Interpretive Data Percent cell count reference ranges are not reported, since discordance with absolute values may lead to misinterpretation of CBC data. Current Interpretive Data was last revised on 2017. Basophil pct 0.4 % [facility] Comment: Interpretive Data Percent cell count reference ranges are not reported, since discordance with absolute values may lead to misinterpretation of CBC data. Current Interpretive Data was last revised on 2017. Blood 10/13/2024 4:08 AM CDT 10/13/2024 4:16 AM CDT Rodney Mejia MD LAB BLOOD ORDERABLES Fi nal Result Performing Organization Address [facility] Co de Phone Number [facility] [address] [employer] [address] * (ABNORMAL) Urinalysis reflex to microscopic and culture Urine (10/13/2024 4:08 AM CDT) Color, ur Yellow Yellow Clarity, ur Cloudy(A) Clear [facility] Specific gravity, ur 1.013 1.003 - 1.030 [facility] pH, urine 7.5 [facility] Comment: Interpretive Data U rine pH [...] on 2017 Protein, ur ql Negative Negative [facility] Glucose, ur ql Negative Negative [facility] Ketones, ur Negative Negative [facility] Bilirubin, ur Negative Negative [facility] Blood, ur Negative Negative [facility] Urobilinogen, ur <2.0 <2.0 mg/dL [facility] Nitrite, ur Negative Negative [facility] Leukocyte esterase, ur Negative Negative [facility] UA reflex comment Reflex conditions for microscopic UA and culture not met. [facility] Urine 10/13/2024 4:08 AM CDT 10/13/2024 4:16 AM CDT Rodney Mejia MD LAB MICROBIOLOGY - GENE RAL ORDERABLES Final Result Performing Organization Address [facility]/ZIP Co de Phone Number [facility] [address] [employer] [address] * (ABNORMAL) CBC with auto differential (10/13/2024 4:08 AM CDT) Pathologist [facility] WBC 17.41(H) 3.80 - 9.90 K/cumm Hgb 13.8 13.0 - 17.5 g/dL [facility] Hct 41.2 38.9 - 50.3 % [facility] Plt 291 150 - 400 K/cumm [facility] MPV 9.9 9.1 - 12.3 fL [facility] RBC 4.87 4.30 - 5.80 M/cumm [facility] MCV 84.6 81.3 - 96.4 fL [facility] MCH 28.3 27.1 - 33.3 pg [facility] MCHC 33.5 32.3 - 35.7 g/dL [facility] RDW CV 15.4(H) 11.1 - 14.9 % [facility] RDW SD 46.5 35.7 - 48.1 fL [facility] NRBC abs 0.00 0.00 - 0.01 K/cumm [facility] Blood Venous blood specimen / Unknown 10/13/2024 4:08 AM CDT 10/13/2024 4:16 AM CDT Rodney Mejia MD LAB BLOOD ORDERABLES Fi nal Result Performing Organization Address [facility] de Phone Number [address] [employer] [place] [address] * (ABNORMAL) Lipase (10/13/2024 4:08 AM CDT) [facility] Lipase 270(H) 10 - 99 Units/L Blood Venous blood specimen / Unknown 10/13/2024 4:08 AM CDT 10/13/2024 4:16 AM CDT Rodney Mejia MD LAB BLOOD ORDERABLES Fi nal Result Performing Organization Address [facility] Co de Phone Number [address] [employer] [address] * Comprehensive metabolic panel (10/13/2024 4:08 AM CDT) Sodium 141 135 - 145 mmol/L Potassium, pl 3.8 3.3 - 4.9 mmol/L [facility] Chloride 104 97 - 110 mmol/L [facility] CO2 22 22 - 32 mmol/L [facility] Anion gap 15 2 - 15 mmol/L [facility] BUN 12 6 - 25 mg/dL [facility] Creatinine 1.13 0.80 - 1.30 mg/dL [facility] Glucose 110 70 - 199 mg/dL [facility] Comment: Interpretive Data Fasting glucose >/= [...] 2022. Calcium 9.2 8.5 - 10.3 mg/dL [facility] Bilirubin, total 0.3 0.1 - 1.2 mg/dL [facility] Protein, pl 6.8 6.5 - 8.5 g/dL [facility] Albumin 4.2 3.5 - 5.0 g/dL [facility] Alk phos 77 40 - 130 Units/L [facility] ALT 15 7 - 55 Units/L [facility] AST 19 10 - 50 Units/L [facility] Blood 10/13/2024 4:08 AM CDT 10/13/2024 4:16 AM CDT us Rodney Mejia MD LAB BLOOD ORDERABLES Fi nal Result [facility] [address] Department [place] [address] * ECG 12 lead (10/13/2024 3:54 AM CDT) Pathologist [facility] Ventricular Rate EKG/Min 66 BPM [facility] Atrial Rate 66 BPM [facility] OK-Interval (MSEC) 86 ms [facility] QRS-Interval (MSEC) 100 ms [facility] QT-Interval (MSEC) 376 ms [facility] QTc 394 ms [facility] P [place] 3 degrees [facility] R [place] 45 degrees [facility] T [place] 52 degrees [facility] Diagnosis Sinus rhythm with short OK Incomplete right bundle branch block Confirmed by HOLLAND MELGAR M.D. ([id number]) on 10/13/2024 9:29:09 AM [facility] 10/13/2024 3:54 AM CDT 10/13/2024 9:29 AM CDT Rodney Mejia MD ECG ORDERABLES Final R esult [facility] * eGFR (10/08/2024 7:25 PM CDT) eGFR [...] was last reviewed 2021. Testing performed by: [facility], [address] [place] [address], [place]., [address] Blood 10/08/2024 7:25 PM CDT 10/08/2024 7:29 PM CDT us Lilliana LAWTON LAB BLOOD ORDERABLES Final Result [facility] [address] [place] [address] * (ABNORMAL) Differential, auto (10/08/2024 7:25 PM CDT) Neutrophil abs 5.02 1.50 - 6.50 K/cumm Comment:Testing performed by : [address] [address] Imm gran abs 0.04 0.00 - 0.10 K/cumm [facility] Comment:Testing performed by : [address] [address] Lymphocyte abs 3.13 0.80 - 3.30 K/cumm [facility] Comment:Testing performed by : [address] [address] Monocyte abs 1.11(H) 0.20 - 0.80 K/cumm [facility] Comment:Testing performed by : [address] [address] Eosinophil abs 0.10 0.00 - 0.50 K/cumm [facility] Comment:Testing performed by : [address] [address] Basophil abs 0.06 0.00 - 0.10 K/cumm [facility] Comment:Testing performed by : [address] [address] Neutrophil pct 53.1 % [facility] Comment: Interpretive Data Percent cell count reference ranges are not reported, since discordance with absolute values may lead to misinterpretation of CBC data. Current Interpretive Data was last revised on 2017. Testing performed by: [address] [address] Imm gran pct 0.4 % [facility] Comment: Interpretive Data Percent cell count reference ranges are not reported, since discordance with absolute values may lead to misinterpretation of CBC data. Current Interpretive Data was last revised on 2017. Testing performed by: [address] [address] Lymphocyte pct 33.1 % [facility] Comment: Interpretive Data Percent cell count reference ranges are not reported, since discordance with absolute values may lead to misinterpretation of CBC data. Current Interpretive Data was last revised on 2017. Testing performed by: [address] [address] Monocyte pct 11.7 % [facility] Comment: Interpretive Data Percent cell count reference ranges are not reported, since discordance with absolute values may lead to misinterpretation of CBC data. Current Interpretive Data was last revised on 2017. Testing performed by: [address] [address] Eosinophil pct 1.1 % [facility] Comment: Interpretive Data Percent cell count reference ranges are not reported, since discordance with absolute values may lead to misinterpretation of CBC data. Current Interpretive Data was last revised on 2017. Testing performed by: [address] [address] Basophil pct 0.6 % [facility] Comment: Interpretive Data Percent cell count reference ranges are not reported, since discordance with absolute values may lead to misinterpretation of CBC data. Current Interpretive Data was last revised on 2017. Testing performed by: [address] [address] Blood 10/08/2024 7:25 PM CDT 10/08/2024 7:29 PM CDT Lilliana LAWTON LAB BLOOD ORDERABLES Final Result [facility] [address] Department of Laboratories [place], [place] [id number] * (ABNORMAL) CBC with auto differential (10/08/2024 7:25 PM CDT) WBC 9.46 3.80 - 9.90 K/cumm Comment:Testing performed by : [address] [address] Hgb 15.0 13.0 - 17.5 g/dL [facility] Comment:Testing performed by : [address], [address] Hct 44.6 38.9 - 50.3 % [facility] Comment:Testing performed by : [address], [address] Plt 321 150 - 400 K/cumm [facility] Comment:Testing performed by : [address] [address] MPV 10.0 9.1 - 12.3 fL [facility] Comment:Testing performed by : [address], [address] RBC 5.38 4.30 - 5.80 M/cumm [facility] Comment:Testing performed by : [address], [address] MCV 82.9 81.3 - 96.4 fL [facility] Comment:Testing performed by : [address], [address] MCH 27.9 27.1 - 33.3 pg [facility] Comment:Testing performed by : [address], [address] MCHC 33.6 32.3 - 35.7 g/dL [facility] Comment:Testing performed by : [address], [address] RDW CV 15.5(H) 11.1 - 14.9 % [facility] Comment:Testing performed by : [address], [address] RDW SD 46.7 35.7 - 48.1 fL [facility] Comment:Testing performed by : [address], [address] NRBC abs 0.00 0.00 - 0.01 K/cumm [facility] Comment:Testing performed by : [address], [address] Blood Venous blood specimen / Unknown 10/08/2024 7:25 PM CDT 10/08/2024 7:29 PM CDT Lilliana LAWTON LAB BLOOD ORDERABLES Final Result [facility] [place] [employer] [address] * Lipase (10/08/2024 7:25 PM CDT) [facility] Lipase 42 10 - 99 Units/L Comment:Testing performed by : [address] [address] Blood Venous blood specimen / Unknown 10/08/2024 7:25 PM CDT 10/08/2024 7:29 PM CDT Lilliana LAWTON LAB BLOOD ORDERABLES Final Result Performing Organization Address City/[facility] Co de Phone Number [address] [place] [address] * Comprehensive metabolic panel (10/08/2024 7:25 PM CDT) [facility] Sodium 141 135 - 145 mmol/L Comment:Testing performed by : [address] [address] Potassium, pl 4.3 3.3 - 4.9 mmol/L [facility] Comment: Hemolyzed; Potassium value may be falsely elevated by as much as 1.0 mmol/L. Suggest redraw and reanalysis. Testing performed by: [address] [address] Chloride 105 97 - 110 mmol/L [facility] Comment:Testing performed by : [address] [address] CO2 22 22 - 32 mmol/L [facility] Comment:Testing performed by : [address] [address] Anion gap 14 2 - 15 mmol/L [facility] Comment:Testing performed by : [address] [address] BUN 7 6 - 25 mg/dL [facility] Comment:Testing performed by : [address] [address] Creatinine 1.02 0.80 - 1.30 mg/dL [facility] Comment:Testing performed by : [address] [address] Glucose 104 70 - 199 mg/dL [facility] [...] was last revised 2022. Testing performed by: [address] [address] Calcium 10.1 8.5 - 10.3 mg/dL [facility] Comment:Testing performed by : [address] [address] Bilirubin, total 0.3 0.1 - 1.2 mg/dL [facility] Comment:Testing performed by : [address] [address] Protein, pl 7.7 6.5 - 8.5 g/dL [facility] Comment:Testing performed by : [address] [address] Albumin 4.8 3.5 - 5.0 g/dL [facility] Comment:Testing performed by : [address] [address] Alk phos 88 40 - 130 Units/L [facility] Comment:Testing performed by : [address] [address] ALT 24 7 - 55 Units/L [facility] Comment:Testing performed by : [address] [address] AST 25 10 - 50 Units/L NEEL Comment: Hemolyzed; result may be falsely elevated Testing performed by: [address] [address] Blood 10/08/2024 7:25 PM CDT 10/08/2024 7:29 PM CDT Lilliana LAWTON LAB BLOOD ORDERABLES Final Result NEEL MH [address] [place] [address] * CTA Chest Abdomen Pelvis (10/07/2024 6:41 [...] Melissa Phoenix M.D. SN T: Report ID: [id number] Reading Location: [id number] Procedure Note Melissa Phoenix MD - 10/07/2024 [...] Melissa Phoenix M.D. SN T: Report ID: [id number] Reading Location: [place] [address] Jose Francisco Harper DO IMG CT PROCEDURES [...] states this started about an hour ago [employer]. 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 SN T: Report ID: [id number] Reading Location: [id number] Procedure Note Melissa Phoenix MD - 10/07/2024 EXAM DESCRIPTION: XR CHEST 1 VIEW REASON FOR STUDY: Abd pain, unspecified C/o upper L quad abd pain. Pt states this started about an hour ago [employer].Pt states that he was recently hospitalized for [...] 6:37 AM - Electronically signed by Melissa Griffin.D. SN T: Report ID: [id number] Reading Location: [id number] Jose Francisco Ramiro Harper DO IMG XR PROCEDURES Final Res [...] CDT 10/07/2024 6:07 AM CDT Jose Francisco Ramiro Harper DO LAB BLOOD ORDERABLES Final Result NEEL [address] Department of Laboratories [place], [place] [id number] * ECG 12 lead (10/07/2024 4:11 AM CDT) Ventricular Rate EKG/Min 65 BPM [facility] Atrial Rate 65 BPM [facility] OK-Interval (MSEC) 108 ms [facility] QRS-Interval (MSEC) 102 ms [facility] QT-Interval (MSEC) 388 ms [facility] QTc 403 ms [facility] [place] 30 degrees [facility] R [place] 56 degrees [facility] T [place] 58 degrees [facility] Diagnosis Sinus rhythm with short OK Otherwise normal ECG When compared with ECG of 27-JUN-2024 09:54, No significant change was found Confirmed by ASHLIE BERMEO M.D. ([id number]) on 10/07/2024 11:47:08 PM [facility] 10/07/2024 4:11 AM CDT 10/07/2024 11:47 PM CDT Jose Francisco Ramiro Harper DO ECG ORDERABLES Final Resul t Performing Organization Address City/[facility]/ZIP Co de Phone Number [facility] * Urinalysis reflex to microscopic and culture Urine (10/07/2024 4:06 AM CDT) Color, ur Yellow Yellow Clarity, ur Clear Clear [facility] Specific gravity, ur 1.013 1.003 - 1.030 [facility] pH, urine 5.5 [facility] Comment: Interpretive Data U rine pH is affected by diet, medications, systemic acid-base disturbances, and renal tubular function. pH may affect urinary stone formation. For example, urine pH below 6.0 may help reduce the tendency for calcium phosphate stones and pH greater than 6.0 may reduce the tendency for uric acid stone formation. Source: [facility] [employer] Current Interpretive Data was last revised on 2017 Protein, ur ql Negative Negative [facility] Glucose, ur ql Negative Negative [facility] Ketones, ur Negative Negative [facility] Bilirubin, ur Negative Negative [facility] Blood, ur Negative Negative [facility] Urobilinogen, ur <2.0 <2.0 mg/dL [facility] Nitrite, ur Negative Negative [facility] Leukocyte esterase, ur Negative Negative [facility] UA reflex comment Reflex conditions for microscopic UA and culture not met. [facility] Urine 10/07/2024 4:06 AM CDT 10/07/2024 4:10 AM CDT Jose Francisco Harper DO LAB MICROBIOLOGY - GENERAL ORDERABLES Final Result Performing Organization Address City/[facility]/ZIP Co de Phone Number [facility] [address] Department [place] [address] * Troponin T high-sensitivity series [...] BLOOD ORDERABLES Final Result Performing Organization Address City/[facility]/ZIP Co de Phone Number NEEL [address] [address] * eGFR (10/07/2024 4:00 AM CDT) eGFR [...] 10/07/2024 4:02 AM CDT Jose Francisco Ramiro Harper DO LAB BLOOD ORDERABLES Final Result NEEL [address] [employer] [address] * (ABNORMAL) Differential, auto (10/07/2024 4:00 AM CDT) Neutrophil abs 5.81 1.50 - 6.50 K/cumm Imm gran abs 0.04 0.00 - 0.10 K/cumm [facility] Lymphocyte abs 3.73(H) 0.80 - 3.30 K/cumm [facility] Monocyte abs 1.14(H) 0.20 - 0.80 K/cumm [facility] Eosinophil abs 0.27 0.00 - 0.50 K/cumm [facility] Basophil abs 0.06 0.00 - 0.10 K/cumm [facility] Neutrophil pct 52.6 % [facility] Comment: Interpretive Data Percent cell count reference ranges are not reported, since discordance with absolute values may lead to misinterpretation of CBC data. Current Interpretive Data was last revised on 2017. Imm gran pct 0.4 % [facility] Comment: Interpretive Data Percent cell count reference ranges are not reported, since discordance with absolute values may lead to misinterpretation of CBC data. Current Interpretive Data was last revised on 2017. Lymphocyte pct 33.8 % [facility] Comment: Interpretive Data Percent cell count reference ranges are not reported, since discordance with absolute values may lead to misinterpretation of CBC data. Current Interpretive Data was last revised on 2017. Monocyte pct 10.3 % [facility] Comment: Interpretive Data Percent cell count reference ranges are not reported, since discordance with absolute values may lead to misinterpretation of CBC data. Current Interpretive Data was last revised on 2017. Eosinophil pct 2.4 % [facility] Comment: Interpretive Data Percent cell count reference ranges are not reported, since discordance with absolute values may lead to misinterpretation of CBC data. Current Interpretive Data was last revised on 2017. Basophil pct 0.5 % [facility] Comment: Interpretive Data Percent cell count reference ranges are not reported, since discordance with absolute values may lead to misinterpretation of CBC data. Current Interpretive Data was last revised on 2017. Blood 10/07/2024 4:00 AM CDT 10/07/2024 4:02 AM CDT us Jose Francisco Harper DO LAB BLOOD ORDERABLES Final Result NEEL [address] [place] [address] * (ABNORMAL) CBC with auto differential (10/07/2024 4:00 AM CDT) [facility] WBC 11.05(H) 3.80 - 9.90 K/cumm Hgb 14.9 13.0 - 17.5 g/dL [facility] Hct 44.7 38.9 - 50.3 % [facility] Plt 281 150 - 400 K/cumm [facility] MPV 9.8 9.1 - 12.3 fL [facility] RBC 5.28 4.30 - 5.80 M/cumm [facility] MCV 84.7 81.3 - 96.4 fL [facility] MCH 28.2 27.1 - 33.3 pg [facility] MCHC 33.3 32.3 - 35.7 g/dL [facility] RDW CV 15.3(H) 11.1 - 14.9 % [facility] RDW SD 46.6 35.7 - 48.1 fL [facility] NRBC abs 0.00 0.00 - 0.01 K/cumm [facility] Blood Venous blood specimen / Unknown 10/07/2024 4:00 AM CDT 10/07/2024 4:02 AM CDT Jose Francisco Harper DO LAB BLOOD ORDERABLES Final Result Performing Organization Address City/[facility] Co de Phone Number [address] [employer] [place] [address] * (ABNORMAL) Lipase (10/07/2024 4:00 AM CDT) [facility] Lipase 104(H) 10 - 99 Units/L Blood Venous blood specimen / Unknown 10/07/2024 4:00 AM CDT 10/07/2024 4:02 AM CDT [facility] Final Result Performing Organization Address [facility] Co de Phone Number [address] [employer] [address] * Comprehensive metabolic panel (10/07/2024 4:00 AM CDT) Sodium 142 135 - 145 mmol/L Potassium, pl 4.1 3.3 - 4.9 mmol/L [facility] Chloride 107 97 - 110 mmol/L [facility] CO2 23 22 - 32 mmol/L [facility] Anion gap 12 2 - 15 mmol/L [facility] BUN 9 6 - 25 mg/dL [facility] Creatinine 1.08 0.80 - 1.30 mg/dL [facility] Glucose 90 70 - 199 mg/dL [facility] Comment: Interpretive Data Fasting glucose >/= [...] 2022. Calcium 9.4 8.5 - 10.3 mg/dL [facility] Bilirubin, total 0.2 0.1 - 1.2 mg/dL [facility] Protein, pl 7.1 6.5 - 8.5 g/dL [facility] Albumin 4.4 3.5 - 5.0 g/dL [facility] Alk phos 81 40 - 130 Units/L [facility] ALT 23 7 - 55 Units/L [facility] AST 24 10 - 50 Units/L [facility] Blood 10/07/2024 4:00 AM CDT 10/07/2024 4:02 AM CDT Jose Francisco Harper DO LAB BLOOD ORDERABLES Final Result NEEL [address] [place] [address] * eGFR (10/03/2024 7:08 AM CDT) [facility] eGFR >90 >=60 mL/min/1. 73 m2 Comment: [...] MD LAB BLOOD ORDERABLES Final Res ult [facility] [address] [place] [address] * (ABNORMAL) CBC without differential (10/03/2024 7:08 AM CDT) WBC 13.42(H) 3.80 - 9.90 K/cumm Hgb 12.4(L) 13.0 - 17.5 g/dL [facility] Hct 37.9(L) 38.9 - 50.3 % [facility] Plt 226 150 - 400 K/cumm [facility] MPV 10.0 9.1 - 12.3 fL [facility] RBC 4.43 4.30 - 5.80 M/cumm [facility] MCV 85.6 81.3 - 96.4 fL [facility] MCH 28.0 27.1 - 33.3 pg [facility] MCHC 32.7 32.3 - 35.7 g/dL [facility] RDW CV 15.4(H) 11.1 - 14.9 % [facility] RDW SD 48.1 35.7 - 48.1 fL [facility] NRBC abs 0.00 0.00 - 0.01 K/cumm [facility] Blood 10/03/2024 7:08 AM CDT 10/03/2024 7:22 AM CDT us Fred Toth MD LAB BLOOD ORDERABLES Final Res ult Performing Organization Address [facility] Co de Phone Number [address] [address] * Lipase (10/03/2024 7:08 AM CDT) Pathologist [facility] Lipase 55 10 - 99 Units/L Blood 10/03/2024 7:08 AM CDT 10/03/2024 7:22 AM CDT us Fred Toth MD LAB BLOOD ORDERABLES Final Res ult Performing Organization Address [facility] de Phone Number [address] [address] * Basic metabolic panel (10/03/2024 7:08 AM CDT) Pathologist [facility] Sodium 141 135 - 145 mmol/L Potassium, pl 4.4 3.3 - 4.9 mmol/L [facility] Chloride 107 97 - 110 mmol/L [facility] CO2 24 22 - 32 mmol/L [facility] Anion gap 10 2 - 15 mmol/L [facility] BUN 9 6 - 25 mg/dL [facility] Creatinine 0.96 0.80 - 1.30 mg/dL [facility] Glucose 100 70 - 199 mg/dL [facility] Comment: Interpretive Data Fasting glucose >/= [...] LAB BLOOD ORDERABLES Final Res ult NEEL [address] [place] [address] * (ABNORMAL) Lipid panel (10/03/2024 1:54 AM [...] last revised on 2017. Testing performed by: [address] [address] Triglycerides 115 <=149 mg/dL NEEL Comment: Interpretive [...] last revised on 2017. Testing performed by: [address] [place] [address] HDL 32(L) >=40 mg/dL NEEL Comment: Interpretive [...] last revised on 2017. Testing performed by: [address] [address] LDL, calculated 61 <=129 mg/dL NEEL SMITH [...] last revised on 2023. Testing performed by: [address] [address] Non-HDL Cholesterol 82 mg/dL NEEL SMITH Comment: [...] last revised on 2017. Testing performed by: [facility], [address] [place] [address]., [address] Chol/HDL ratio 4 NEEL SMITH Comment:Testing performed by : [facility], [address] [place] [address]., [address] Blood 10/03/2024 1:54 AM CDT 10/03/2024 2:00 AM CDT us Fred Toth MD LAB BLOOD ORDERABLES Final Res ult NEEL SMTIH [address] [place] [address] * CT Abdomen Pelvis W Contrast (10/03/2024 [...] Aryan Jovel M.D. AR: GIOVANNA Report ID: [id number] Reading Location: [place] [address] Procedure Note Aryan Jovel MD - 10/03/2024 [...] Aryan Jovel M.D. AR: GIOVANNA Report ID: [id number] Reading Location: [place] [address] Fred Toth MD IM CT PROCEDURES Final Result * (ABNORMAL) Drugs of Abuse Screen, Urine with Reflex Confirmation (10/03/2024 12:51 AM CDT) [facility] Amphetamine, ur Not Detected CutOff 500ng/mL Comment: Interpretive Data - Amphetamines: Samples containing greater than 500 ng/mL d-methamphetamine or other cross-reacting amphetamine compounds are reported as positive. Amphetamine immunoassays are subject to significant false positive rates due to cross-reactivity of non-amphetamine drugs. Confirmatory testing required for definitive results. Current Interpretive Data was last reviewed 2022. Testing performed by: [address] [address] Barbiturates, ur Not Detected CutOff 200ng/mL NEEL Comment: Interpretive Data - Barbiturates: Samples containing greater than 200 ng/mL secobarbital or other cross-reacting barbiturate compounds are reported as positive. False positive and false negative results are possible. Confirmatory testing required for definitive results. Current Interpretive Data was last reviewed 2022. Testing performed by: [address] [address] Benzodiazepines, ur Not Detected CutOff 100ng/mL [facility] Comment: Interpretive Data - Benzodiazepines: Samples containing greater than 100 ng/mL nordiazepam or other cross-reacting compounds are reported as positive. False positive and false negative results are possible. Confirmatory testing required for definitive results. Current Interpretive Data was last reviewed 2022. Testing performed by: [facility], [address] [place] [address]., [address] Cannabinoids, ur Screen Positive, presumptive (A) CutOff 50 ng/mL [facility] Comment: Interpretive Data - Cannabinoids: Samples containing greater than 50 ng/mL delta-9 THC -COOH or other cross- reacting compounds are reported as positive. False positive and false negative results are possible. Confirmatory testing required for definitive results. Current Interpretive Data was last reviewed 2022. Testing performed by: [facility], [address] [place] [address], [place]., [address] Cocaine, ur Not Detected CutOff 150ng/mL [facility] Comment: Interpretive Data - Cocaine: Samples containing greater than 150 ng/mL benzoylecgonine or other cross- reacting compounds are reported as positive. False positive and false negative results are possible. Confirmatory testing required for definitive results. Current Interpretive Data was last reviewed 2022. Testing performed by: [address] [address] Fentanyl, Ur Not Detected CutOff 5 ng/mL [facility] Comment: Interpretive Data - Fentanyl: Samples containing greater than 1 ng/mL fentanyl or other cross-reacting fentanyl compounds are reported as positive. False positive and false negative results are possible. Confirmatory testing required for definitive results. Current Interpretive Data was last reviewed 2022. Testing performed by: [address] [address] Methadone, ur Not Detected CutOff 300ng/mL [facility] Comment: Interpretive Data - Methadone: Samples containing greater than 300 ng/mL d,l-methadone or other cross-reacting compounds are reported as positive. False positive and false negative results are possible. Confirmatory testing required for definitive results. Current Interpretive Data was last reviewed 2022. Testing performed by: [address] [address] Opiates, ur Not Detected CutOff 300ng/mL [facility] Comment: Interpretive Data - Opiates: Samples containing greater than 300 ng/mL morphine or other cross-reacting compounds are reported as positive. False positive and false negative results are possible. Confirmatory testing required for definitive results. Current Interpretive Data was last reviewed 2022. Testing performed by: [address] [address] Oxycodone, ur Not Detected CutOff 100ng/mL NEEL Comment: Interpretive Data - Oxycodone: Samples containing greater than 100 ng/mL oxycodone or other cross-reacting compounds are reported as positive. False positive and false negative results are possible. Confirmatory testing required for definitive results. Current Interpretive Data was last reviewed 2022. Testing performed by: [address] [address] Phencyclidine, ur Not Detected CutOff 25 ng/mL NEEL Comment: Interpretive Data - Phencyclidine: Samples containing greater than 25 ng/mL phencyclidine or other cross-reacting compounds are reported as positive. False positive and false negative results are possible. Confirmatory testing required for definitive results. Current Interpretive Data was last reviewed 2022. Testing performed by: [address] [address] Urine Creatinine 102 mg/dL NEEL Comment: Interpretive Data Urine Creatinine: < 10 mg/dL is extremely dilute = or > 10 but < 20 mg/dL is dilute = or > 20 mg/dL is normal Current Interpretive Data was last revised on 2017. Testing performed by: [address] [address] Urine 10/03/2024 12:5 1 AM CDT 10/03/2024 [...] LAB URINE ORDERABLES Final Res ult NEEL [address] Department of Laboratories [place], [place] [id number] * Urinalysis reflex to microscopic and culture Urine (10/02/2024 10:09 PM CDT) Color, ur Yellow Yellow Comment:Testing performed by : [address] [address] Clarity, ur Clear Clear NEEL Comment:Testing performed by : [address], [place]., [address] Specific gravity, ur 1.011 1.003 - 1.030 NEEL Comment:Testing performed by : [address] [address] pH, urine 6.0 NEEL Comment: Interpretive Data U rine pH is affected by diet, medications, systemic acid-base disturbances, and renal tubular function. pH may affect urinary stone formation. For example, urine pH below 6.0 may help reduce the tendency for calcium phosphate stones and pH greater than 6.0 may reduce the tendency for uric acid stone formation. Source: [facility] [employer] Current Interpretive Data was last revised on 2017 Testing performed by: [address] [address] Protein, ur ql Negative Negative NEEL Comment:Testing performed by : [address] [address] Glucose, ur ql Negative Negative NEEL Comment:Testing performed by : [address] [address] Ketones, ur Negative Negative NEEL Comment:Testing performed by : [address] [address] Bilirubin, ur Negative Negative NEEL Comment:Testing performed by : [address] [address] Blood, ur Negative Negative NEEL Comment:Testing performed by : [address] [address] Urobilinogen, ur <2.0 <2.0 mg/dL NEEL Comment:Testing performed by : [address] [address] Nitrite, ur Negative Negative NEEL Comment:Testing performed by : [address] [address] Leukocyte esterase, ur Negative Negative NEEL Comment:Testing performed by : [address] [address] UA reflex comment Reflex conditions for microscopic UA and culture not met. [facility] Comment:Testing performed by : [address] [address] Urine 10/02/2024 10:0 9 PM CDT 10/02/2024 10:11 PM CDT María Elena Calvo MD LAB MICROBIOLOGY - GENERA L ORDERABLES Final Result Performing Organization Address [facility] Co de Phone Number [address] Department [place] [address] * eGFR (10/02/2024 9:51 PM [...] was last reviewed 2021. Testing performed by: [facility], [address] [place] [address]., [address] Blood 10/02/2024 9:5 1 PM CDT 10/02/2024 9:57 PM CDT María Elena Calov MD LAB BLOOD ORDERABLES Renee l Result Performing Organization Address City/[facility]/ZIP Co de Phone Number [facility] [address] [place] [address] * (ABNORMAL) Differential, auto (10/02/2024 9:51 PM CDT) Neutrophil abs 12.91(H) 1.50 - 6.50 K/cumm Comment:Testing performed by : [address] [address] Imm gran abs 0.10 0.00 - 0.10 K/cumm NEEL Comment:Testing performed by : [address] [address] Lymphocyte abs 1.91 0.80 - 3.30 K/cumm NEEL Comment:Testing performed by : [address] [address] Monocyte abs 1.44(H) 0.20 - 0.80 K/cumm NEEL Comment:Testing performed by : [address] [address] Eosinophil abs 0.14 0.00 - 0.50 K/cumm NEEL Comment:Testing performed by : [address] [address] Basophil abs 0.07 0.00 - 0.10 K/cumm NEEL Comment:Testing performed by : [address] [address] Neutrophil pct 78.0 % NEEL Comment: Interpretive Data Percent cell count reference ranges are not reported, since discordance with absolute values may lead to misinterpretation of CBC data. Current Interpretive Data was last revised on 2017. Testing performed by: [address] [address] Imm gran pct 0.6 % NEEL Comment: Interpretive Data Percent cell count reference ranges are not reported, since discordance with absolute values may lead to misinterpretation of CBC data. Current Interpretive Data was last revised on 2017. Testing performed by: [address] [address] Lymphocyte pct 11.5 % NEEL Comment: Interpretive Data Percent cell count reference ranges are not reported, since discordance with absolute values may lead to misinterpretation of CBC data. Current Interpretive Data was last revised on 2017. Testing performed by: [address] [address] Monocyte pct 8.7 % NEEL Comment: Interpretive Data Percent cell count reference ranges are not reported, since discordance with absolute values may lead to misinterpretation of CBC data. Current Interpretive Data was last revised on 2017. Testing performed by: [address] [address] Eosinophil pct 0.8 % NEEL Comment: Interpretive Data Percent cell count reference ranges are not reported, since discordance with absolute values may lead to misinterpretation of CBC data. Current Interpretive Data was last revised on 2017. Testing performed by: [address] [address] Basophil pct 0.4 % NEEL Comment: Interpretive Data Percent cell count reference ranges are not reported, since discordance with absolute values may lead to misinterpretation of CBC data. Current Interpretive Data was last revised on 2017. Testing performed by: [address] [address] Blood 10/02/2024 9:51 PM CDT 10/02/2024 9:57 PM CDT us María Elena Calvo MD LAB BLOOD ORDERABLES Renee l Result Performing Organization Address City/State/[facility] Co de Phone Number [facility] [address] [place] [address] * (ABNORMAL) CBC with auto differential (10/02/2024 9:51 PM CDT) WBC 16.57(H) 3.80 - 9.90 K/cumm Comment:Testing performed by : [address] [address] Hgb 13.9 13.0 - 17.5 g/dL NEEL Comment:Testing performed by : [address] [address] Hct 41.0 38.9 - 50.3 % NEEL Comment:Testing performed by : [address], [address] Plt 281 150 - 400 K/cumm NEEL SMITH Comment:Testing performed by : [address] [address] MPV 9.9 9.1 - 12.3 fL NEEL Comment:Testing performed by : [address], [address] RBC 4.94 4.30 - 5.80 M/cumm NEEL SMITH Comment:Testing performed by : [address], [address] MCV 83.0 81.3 - 96.4 fL NEEL Comment:Testing performed by : [address] [address] MCH 28.1 27.1 - 33.3 pg NEEL Comment:Testing performed by : [address], [address] MCHC 33.9 32.3 - 35.7 g/dL NEEL Comment:Testing performed by : [address], [address] RDW CV 15.4(H) 11.1 - 14.9 % NEEL Comment:Testing performed by : [address], [address] RDW SD 46.5 35.7 - 48.1 fL NEEL Comment:Testing performed by : [address], [address] NRBC abs 0.00 0.00 - 0.01 K/cumm NEEL Comment:Testing performed by : [address], [address] Blood Venous blood specimen / Unknown 10/02/2024 9:51 PM CDT 10/02/2024 9:57 PM CDT María Elena Calvo MD LAB BLOOD ORDERABLES Renee antunez Result NEEL [facility] [place] [address] * (ABNORMAL) Lipase (10/02/2024 9:51 PM CDT) Pathologist [facility] Lipase 444(H) 10 - 99 Units/L Comment:Testing performed by : [address] [address] Blood Venous blood specimen / Unknown 10/02/2024 9:51 PM CDT 10/02/2024 9:57 PM CDT María Elena Calvo MD LAB BLOOD ORDERABLES Renee antunez Result NEEL [facility] [place] [address] * Comprehensive metabolic panel (10/02/2024 9:51 PM CDT) [facility] Sodium 143 135 - 145 mmol/L Comment:Testing performed by : [address] [address] Potassium, pl 3.9 3.3 - 4.9 mmol/L NEEL Comment:Testing performed by : [address] [address] Chloride 107 97 - 110 mmol/L NEEL Comment:Testing performed by : [address] [address] CO2 22 22 - 32 mmol/L NEEL Comment:Testing performed by : [address] [address] Anion gap 14 2 - 15 mmol/L NEEL Comment:Testing performed by : [address] [address] BUN 7 6 - 25 mg/dL NEEL Comment:Testing performed by : [address] [address] Creatinine 1.08 0.80 - 1.30 mg/dL NEEL Comment:Testing performed by : [address] [address] Glucose 129 70 - 199 mg/dL NEEL [...] was last revised 2022. Testing performed by: [address] [address] Calcium 10.0 8.5 - 10.3 mg/dL NEEL Comment:Testing performed by : [address] [address] Bilirubin, total 0.3 0.1 - 1.2 mg/dL NEEL Comment:Testing performed by : [address] [address] Protein, pl 7.2 6.5 - 8.5 g/dL NEEL Comment:Testing performed by : [address] [address] Albumin 4.5 3.5 - 5.0 g/dL NEEL Comment:Testing performed by : [address] [address] Alk phos 84 40 - 130 Units/L NEEL Comment:Testing performed by : [address] [address] ALT 28 7 - 55 Units/L NEEL Comment:Testing performed by : [address] [address] AST 37 10 - 50 Units/L NEEL Comment:Testing performed by : [address] [address] Blood 10/02/2024 9:51 PM CDT 10/02/2024 9:57 PM CDT us María Elena Calvo MD LAB BLOOD ORDERABLES Renee antunez Result NEEL MH [address] [facility] [place] [address] * CT Abdomen Pelvis W Contrast (09/30/2024 [...] Esa Cao M.D. AG: GONZALES Report ID: [id number] Reading Location: [id number] Procedure Note Esa Cao MD - 09/30/2024 [...] Esa Cao M.D. AG: GONZALES Report ID: [id number] Reading Location: [place] [address] Radha Casas DO IM CT PROCEDURES Final Result * (ABNORMAL) Urinalysis reflex to microscopic and culture Urine (09/30/2024 5:55 PM CDT) Color, ur Yellow Yellow Comment:Testing performed by : [address] [address] Clarity, ur Clear Clear NEEL Comment:Testing performed by : [address] [address] Specific gravity, ur 1.035(H) 1.003 - 1.030 NEEL Comment:Testing performed by : [address] [address] pH, urine 6.0 NEEL Comment: Interpretive Data U rine pH is affected by diet, medications, systemic acid-base disturbances, and renal tubular function. pH may affect urinary stone formation. For example, urine pH below 6.0 may help reduce the tendency for calcium phosphate stones and pH greater than 6.0 may reduce the tendency for uric acid stone formation. Source: [facility] [employer] Current Interpretive Data was last revised on 2017 Testing performed by: [facility], [address] [place] [address], [place]., [address] Protein, ur ql 1+(A) Negative NEEL Comment:Testing performed by : [address], [place]., [address] Glucose, ur ql Negative Negative NEEL Comment:Testing performed by : [address], [place]., [address] Ketones, ur 1+(A) Negative NEEL Comment:Testing performed by : [address], [place]., [address] Bilirubin, ur Negative Negative NEEL Comment:Testing performed by : [address], [place]., [address] Blood, ur Negative Negative NEEL Comment:Testing performed by : [address], [place]., [address] Urobilinogen, ur 2.0(A) <2.0 mg/dL NEEL Comment:Testing performed by : [address], [place]., [address] Nitrite, ur Negative Negative NEEL Comment:Testing performed by : [address] [address] Leukocyte esterase, ur Negative Negative NEEL Comment:Testing performed by : [address] [address] UA reflex comment Reflex to microscopic UA will be performed. NEEL Comment:Testing performed by : [address], [place]., [address] Urine 09/30/2024 5:55 PM CDT 09/30/2024 5:57 PM CDT us Radha Casas DO LAB MICROBIOLOGY - GENERAL ORDE SAMEER Final Result NEEL SMITH [address] [facility] [place] [address] * (ABNORMAL) Urinalysis, microscopic only (09/30/2024 5:55 PM CDT) Pathologist [facility] WBC, ur 6-10(A) 0 - 5 /HPF Comment:Testing performed by : [facility], [address] [place] [address]., [address] RBC, ur 3-5(A) 0 - 2 /HPF NEEL Comment:Testing performed by : [facility], [address] [place] [address]., [address] Epithelial cells, squamous, ur 6-10(A) 0 - 5 /HPF NEEL Comment:Testing performed by : [address] [address] Mucous, ur Present(A) NEEL Comment:Testing performed by : [address] [address] Culture Reflex Comment Reflex conditions for urine culture (WBC >10) not met. NEEL Comment:Testing performed by : [facility], [address] [place] [address]., [address] Urine 09/30/2024 5:55 PM CDT 09/30/2024 5:57 PM CDT Radha Casas DO LAB URINE ORDERABLES Final Resu lt NEEL [address] [facility] [place] [address] * eGFR (09/30/2024 4:01 PM CDT) [facility] eGFR >90 >=60 mL/min/1. 73 m2 Comment: [...] was last reviewed 2021. Testing performed by: [address] [address] Blood 09/30/2024 4:01 PM CDT 09/30/2024 4:06 PM CDT Radha Casas DO LAB BLOOD ORDERABLES Final Resu lt NEEL SMITH [facility] Department [place] [address] * Differential, auto (09/30/2024 4:01 PM CDT) Neutrophil abs 5.11 1.50 - 6.50 K/cumm Comment:Testing performed by : [address] [address] Imm gran abs 0.04 0.00 - 0.10 K/cumm NEEL Comment:Testing performed by : [address] [address] Lymphocyte abs 1.62 0.80 - 3.30 K/cumm NEEL Comment:Testing performed by : [address] [address] Monocyte abs 0.77 0.20 - 0.80 K/cumm NEEL Comment:Testing performed by : [address] [address] Eosinophil abs 0.18 0.00 - 0.50 K/cumm NEEL Comment:Testing performed by : [address] [address] Basophil abs 0.05 0.00 - 0.10 K/cumm NEEL Comment:Testing performed by : [address] [address] Neutrophil pct 65.9 % CERNER Comment: Interpretive Data Percent cell count reference ranges are not reported, since discordance with absolute values may lead to misinterpretation of CBC data. Current Interpretive Data was last revised on 2017. Testing performed by: [address] [address] Imm gran pct 0.5 % [facility] Comment: Interpretive Data Percent cell count reference ranges are not reported, since discordance with absolute values may lead to misinterpretation of CBC data. Current Interpretive Data was last revised on 2017. Testing performed by: [address] [address] Lymphocyte pct 20.8 % [facility] Comment: Interpretive Data Percent cell count reference ranges are not reported, since discordance with absolute values may lead to misinterpretation of CBC data. Current Interpretive Data was last revised on 2017. Testing performed by: [address] [address] Monocyte pct 9.9 % [facility] Comment: Interpretive Data Percent cell count reference ranges are not reported, since discordance with absolute values may lead to misinterpretation of CBC data. Current Interpretive Data was last revised on 2017. Testing performed by: [address] [address] Eosinophil pct 2.3 % CERNER Comment: Interpretive Data Percent cell count reference ranges are not reported, since discordance with absolute values may lead to misinterpretation of CBC data. Current Interpretive Data was last revised on 2017. Testing performed by: [address] [address] Basophil pct 0.6 % [facility] Comment: Interpretive Data Percent cell count reference ranges are not reported, since discordance with absolute values may lead to misinterpretation of CBC data. Current Interpretive Data was last revised on 2017. Testing performed by: [address] [address] Blood 09/30/2024 4:01 PM CDT 09/30/2024 4:06 PM CDT us Radha Casas DO LAB BLOOD ORDERABLES Final Resu lt NEEL [address] [facility] Department of Laboratories [place], [place] [id number] * (ABNORMAL) CBC with auto differential (09/30/2024 4:01 PM CDT) WBC 7.77 3.80 - 9.90 K/cumm Comment:Testing performed by : [address] [address] Hgb 14.5 13.0 - 17.5 g/dL NEEL Comment:Testing performed by : [address] [address] Hct 43.0 38.9 - 50.3 % NEEL Comment:Testing performed by : [address] [address] Plt 278 150 - 400 K/cumm NEEL Comment:Testing performed by : [address] [address] MPV 9.8 9.1 - 12.3 fL NEEL Comment:Testing performed by : [address] [address] RBC 5.18 4.30 - 5.80 M/cumm NEEL Comment:Testing performed by : [address] [address] MCV 83.0 81.3 - 96.4 fL NEEL Comment:Testing performed by : [address] [address] MCH 28.0 27.1 - 33.3 pg NEEL Comment:Testing performed by : [address] [address] MCHC 33.7 32.3 - 35.7 g/dL NEEL Comment:Testing performed by : [address] [address] RDW CV 15.3(H) 11.1 - 14.9 % NEEL Comment:Testing performed by : [address], [address] RDW SD 46.4 35.7 - 48.1 fL NEEL SMITH Comment:Testing performed by : [address] [address] NRBC abs 0.00 0.00 - 0.01 K/cumm NEEL SMITH Comment:Testing performed by : [address] [address] Blood Venous blood specimen / Unknown 09/30/2024 4:01 PM CDT 09/30/2024 4:06 PM CDT Radha Yessenia LAB BLOOD ORDERABLES Final Resu lt Performing Organization Address [facility]/ZIP Co de Phone Number [address] [place] [address] * Lipase (09/30/2024 4:01 PM CDT) Pathologist [facility] Lipase 51 10 - 99 Units/L Comment:Testing performed by : [address] [address] Blood Venous blood specimen / Unknown 09/30/2024 4:01 PM CDT 09/30/2024 4:06 PM CDT Radha Yessenia LAB BLOOD ORDERABLES Final Resu lt Performing Organization Address [facility] Co de Phone Number [address] [address] * Comprehensive metabolic panel (09/30/2024 4:01 PM CDT) Sodium 141 135 - 145 mmol/L Comment:Testing performed by : [address] [address] Potassium, pl 4.0 3.3 - 4.9 mmol/L NEEL SMITH Comment:Testing performed by : [address] [address] Chloride 106 97 - 110 mmol/L NEEL SMITH Comment:Testing performed by : [address] [address] CO2 24 22 - 32 mmol/L NEEL Comment:Testing performed by : [address] [address] Anion gap 11 2 - 15 mmol/L NEEL Comment:Testing performed by : [address], [place]., [address] BUN 9 6 - 25 mg/dL NEEL Comment:Testing performed by : [address], [place]., [address] Creatinine 1.00 0.80 - 1.30 mg/dL NEEL Comment:Testing performed by : [address] [address] Glucose 107 70 - 199 mg/dL NEEL [...] was last revised 2022. Testing performed by: [address] [address] Calcium 9.6 8.5 - 10.3 mg/dL NEEL Comment:Testing performed by : [address] [address] Bilirubin, total 0.4 0.1 - 1.2 mg/dL NEEL Comment:Testing performed by : [address] [address] Protein, pl 7.1 6.5 - 8.5 g/dL NEEL Comment:Testing performed by : [address] [address] Albumin 4.3 3.5 - 5.0 g/dL NEEL Comment:Testing performed by : [address] [address] Alk phos 87 40 - 130 Units/L NEEL SMITH Comment:Testing performed by : [facility], [address] [place] [address]., [address] ALT 25 7 - 55 Units/L NEEL SMITH Comment:Testing performed by : [facility], [address] [place] [address]., [address] AST 25 10 - 50 Units/L NEEL SMITH Comment:Testing performed by : [facility], [address] [place] [address]., [address] Blood 09/30/2024 4:01 PM CDT 09/30/2024 4:06 PM CDT us Radha Casas DO LAB BLOOD ORDERABLES Final Resu lt NEEL SMITH [address] [facility] [place] [address] from Last 3 Months Advance Directives For more information, please contact: [phone] * Full Code (Latest Code Status on File) Date Activated Date Inactivated Comments 12/01/2024 5:27 AM 12/03/2024 7:24 PM * Full Code Date Activated Date Inactivated Comments 12/01/2024 4:32 AM 12/01/2024 5:27 AM * Full Code Date Activated Date Inactivated Comments 10/03/2024 3:29 AM 10/03/2024 3:45 PM * Full Code Date Activated Date Inactivated Comments 08/10/2024 8:35 AM 08/12/2024 5:04 PM * Full Code Date Activated Date Inactivated Comments 11/15/2023 12:50 PM 11/16/2023 7:54 PM Care Teams Meat Pumper Relationship Specialty Start Date End Date Td Lopez MD [facility] [address] PCP - General Family Medicine 11/09/20 Angie Woodard MD [address] [facility] [address] [place] [address] Consulting Physician Gastroenterology 07/17/21 Vimal Woodruff MD [address] [address] Consulting Physician Gastroenterology 02/10/22
--- OUTSIDE RECORDS SUMMARY | 2024-12-06 12:25 | XMS_ITS | Clinical Summary ---
Author Organization [facility] Address [address] [place] [address] Care Team Providers Care Publicity Manager Name Role Phone Td Lopez MD Primary Care Provider + Angie Woodard MD Unavailable [phone] Vimal Woodruff MD Unavailable [phone] Allergies Active Allergy Reactions Criticality Noted Date [...] 6 (six) hours 12 tablet 5 12/02/19 25 Discontinu ed(Error) Active Problems Problem Noted Date Diagnosed Date Intractable nausea and vomiting 12/01/2024 Abdominal pain 10/03/2024 Acute pancreatitis, unspecif ied complication status, unspecified pancreatitis type 08/10/2024 Neck pain 03/25/2024 Assessment & Plan (03/25/2024 11:50 AM HEAD TURBINE 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 Assessment & Plan (03/25/2024 11:49 AM HEAD TURBINE OPERATOR): - ref to derm for eval Drug [...] pain Assessment & Plan (03/25/2024 11:49 AM HEAD TURBINE OPERATOR): - poor control - continue hyosciamine, famotidine, zofran - ref to GI for continued treatment Assessment & Plan (03/20/2023 11:07 AM HEAD TURBINE OPERATOR): - stable - continue current medication Duodenal [...] prn Assessment & Plan (07/15/2019 11:44 AM HEAD TURBINE OPERATOR): - stable - continue bentyl and amitriptyline [...] medication Assessment & Plan (07/15/2019 11:44 AM HEAD TURBINE OPERATOR): - stable - continue creon Annual physical [...] able Assessment & Plan (07/15/2019 11:46 AM HEAD TURBINE OPERATOR): - encourage healthy diet, exercise - check labs - encouraged quitting smoking Enteritis 02/18/2019 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 Assessment & Plan (07/15/2019 11:37 AM HEAD TURBINE OPERATOR): - encouraged pt to quit smoking Abdominal [...] GI Assessment & Plan (03/20/2023 11:07 AM HEAD TURBINE OPERATOR): - stable - continue current medication per [...] 09/17/202209/08 Assessment & Plan (03/20/2023 11:08 AM HEAD TURBINE OPERATOR): - stable off meds - will monitor [...] 09/25/2023 Assessment & Plan (03/26/2021 11:41 AM HEAD TURBINE OPERATOR): - stable today - continue current medications [...] lexapro Assessment & Plan (07/15/2019 11:38 AM HEAD TURBINE OPERATOR): - stable - continue current plan Gastroesophageal reflux dise ase without esophagitis 07/15/2019 03/18/2023 Overview (07/15/2019): - GERD managed by Dr Woodard - Pt on omeprazole and carafate for sx control Assessment & Plan (01/01/2021 12:09 PM CDT): - stable - continue current medication Assessment & Plan (02/07/2020 2:32 PM CDT): - stable - continue current medication Assessment & Plan (07/15/2019 11:38 AM HEAD TURBINE OPERATOR): - stable - continue omeprazole and carafate Viral illness 07/08/2019 02/12/2021 Assessment & Plan (07/09/2019 9:12 AM HEAD TURBINE OPERATOR): Medrol Dosepak as directed. Recommended Mucinex plain [...] (09/17/2018): Added automatically from request for surgery [id number] Assessment & Plan (02/12/2021 11:23 AM CDT): - encouraged pt to f/u with new GI - continue hyoscyamine Assessment & Plan (01/01/2021 12:10 PM CDT): - continue prn oxycodone for now - discussed need to wean off of this as this is not a viable [place] [facility] solution - will ref to pain management [...] medication Assessment & Plan (07/15/2019 11:36 AM HEAD TURBINE OPERATOR): - controlled - continue current plan Chronic [...] - 12/03/2024 3:20 PM CDT Hospital Encounter [id number] [place] [address] Domenic Arias MD Holthaus, MD Alexandra Ayala Fariah Habib, DO Jain, Anshu, MD Enteritis (Primary Dx); Abdominal pain; Cyclic vomiting syndrome; Hyperemesis Discharge Disposition: Discharge to home or self care 11/26/2024 2:02 AM CDT - 11/26/2024 4:25 AM CDT Emergency [facility] Emergency Department [address] [place] [id number] Blue Warren MD Abdominal pain (Primary Dx); Nausea and vomiting, unspecified vomiting type Discharge Disposition: Discharge to home or self care 10/20/2024 [facility] Outreach [address] [address] Niki Burns MA 10/19/2024 [facility] Out[facility] [address] [address] Niki Bruns MA 10/18/2024 1:45 PM CDT - 10/18/2024 7:54 PM CDT Emergency [facility] Emergency Department [address] [place] [phone] Oswaldo Burns MD Chronic abdominal pain (Primary Dx) Discharge Disposition: Discharge to home or self care 10/18/2024 [facility] ED Outreach [address] [address] Niki Burns MA 10/14/2024 12:14 AM CDT - 10/14/2024 2:13 AM CDT Emergency [facility] Emergency Department [address] [place] [phone] Enteritis (Primary Dx) Discharge Disposition: Discharge to home or self care 10/13/2024 4:36 AM CDT - 10/13/2024 10:20 AM CDT [address] [address] Rodney Mejia MD Journagan, Kevin, MD Abdominal pain (Primary Dx); History of pancreatitis; Chronic abdominal pain; Nausea and vomiting, unspecified vomiting type Discharge Disposition: Discharge to home or self care 10/08/2024 7:54 PM CDT - 10/08/2024 8:06 PM CDT Emergency [facility] Emergency Department [address] [place] [id number] Chronic abdominal pain (Primary Dx) Discharge Disposition: Discharge to home or self care 10/07/2024 5:29 AM CDT - 10/07/2024 8:34 AM CDT Emergency [address] [address] Jose Francisco Harper DO Prograis, Shannon Smith, MD Abdominal pain (Primary Dx); Chronic pancreatitis, unspecified pancreatitis type (HCC) Discharge Disposition: Discharge to home or self care 10/06/2024 11:00 AM CDT Office Visit [facility] Primary [facility] [address] [place] [phone] Td Lopez MD Abdominal pain (Primary Dx); Other chronic pancreatitis (HCC); Gastroesophageal reflux disease without esophagitis; Irritable bowel syndrome with both constipation and diarrhea 10/05/2024 [facility] IP Outreach [facility] Care Organization [address] [place] [address] Lakshmi Garcia LPN 10/04/2024 Telephone [facility] Primary [facility] [address] [place] [phone] Td Lopez MD schedule [facility] appt 10/02/2024 9:53 PM CDT - 10/03/2024 11:39 AM CDT Hospital Encounter [address] [place] [address] María Elena Calvo MD Medavaram, Atul, MD Sada, Kahmalia-Kalee Conceptia, MD Chowdhury, Farhanaz, MD Abdominal pain (Primary Dx); Acute pancreatitis, unspecified complication status, unspecified pancreatitis type; Pain, dental Discharge Disposition: Discharge to home or self care 09/30/2024 5:44 PM CDT - 09/30/2024 8:58 PM CDT Emergency [facility] Emergency Department [address] [place] [address] Radha Casas DO Abdominal pain (Primary Dx); [...] drink = 0.6 oz pur e alcohol) [employer] Util[employer] Answer Date Recorded In the past 12 months has [employer], gas, oil, or water [employer] threatened to shut off services in your [...] week 12/01/2024 How often do you attend [facility] or scientology services? Never 12/01/2024 Do you belong to any clubs o r organizations such as adventist groups, unions, fraternal or athletic groups, or [...] any time in the past 12 m [facility], were you homeless or living in a jail (including now)? No 12/01/2024 Personal Safety Answer Date Recorded Have you ever been in or are you currently in a harmful physical or emotional relationship or is someone making you feel afraid or unsafe? 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 Gender Identity Not on file Sexual [...] <65 (1 of 2 - PCV) 2000 HPV Vaccines (1 - 3-dose SCD M series) 2008 Covid-19 Vaccine ( - 2023-2 5 season) 2024 10/29/2021, 11/02/2020, 10/05/2020 Regular Well Visit/Exam 18-64 09/24/2024, 09/17/2022, 02/29/2020 Influenza Vaccine (#1) 2025 , 03/20/2023, 02/08/2022, Additional history exists Depression Screening 08/23/2025 08/23/2024, 03/25/2024, 03/25/2024, Additional history exists DTaP/Tdap/Td Vaccine (2 - Td or Tdap) 10/30/2031 10/29/2021 Varicella Vaccines Discontinued Medical Devices Explanted Type Area [place] Machine Operator Device Identifier Shelf Expiration Date Model / Serial / Lot MD [employer] [id number] Connell Flexi-Stent 7fr 5cm Small Pigtail Flexible .035in Stent - [id number] Implanted:Qty: 1 on 09/18/2018 by Vimal Woodruff MD at [facility] Explanted:Qty: 1 on 09/20/2018 at [facility] Stent N/A: Pancreas [employer] 06/10/2023 [id number] / / [id number] Conmed Gina [id number] [place] Viabil 10mm 8.5fr 6cm 200cm Fully Covered Self Expand Pull - [id number] - [id number] Implanted:Qty: 1 on 09/18/2018 by Vimal Woodruff MD at [facility] Explanted:Qty: 1 on 09/20/2018 at [facility] Stent N/A: Bile Duct Conmed Gina 06/29/2021 [id number] / [id number] / [employer] Connell Flexi-Stent 7fr 9cm Small Pigtail Flexible .035in Stent 6575 - [id number] Implanted:Qty: 1 on 02/07/2022 by Vimal Woodruff MD at [facility] Explanted:Qty: 1 on 02/10/2022 by Vimal Woodruff MD at [facility] Stent N/A: Pancreas [employer] 09/07/2026 [id number] / / [id number] [employer] Gina Wallflex 10mm X 60mm Fully Covered Biliary [id number] - [id number] Implanted:Qty: 1 on 02/07/2022 by Vimal Woodruff MD at [facility] Explanted:Qty: 1 on 02/10/2022 by Vimal Woodruff MD at [facility] Stent N/A: Bile Duct [employer] Gina 11/04/2023 [id number] / / [id number] [employer] Connell Flexi-Stent 7fr 9cm Small Pigtail Flexible .035in Stent 6575 - [id number] Implanted:Qty: 1 on 09/21/2023 by Vimal Woodruff MD at [facility] Explanted:Qty: 1 on 09/23/2023 by Vimal Woodruff MD at [facility] Stent N/A: Pancreas [employer] 03/11/2028 [id number] / / [id number] Description:Not present at b eginning of case. Self migrated out [employer] Gina Wallflex 10mm X 60mm Fully Covered Biliary [id number] - [id number] Implanted:Qty: 1 on 09/21/2023 by Vimal Woodruff MD at [facility] Explanted:Qty: 1 on 09/23/2023 by Vimal Woodruff MD at [facility] Stent N/A: Bile Duct [employer] Gina 08/02/2025 [id number] / / [id number] Procedures Procedure Name Priority Date/Time Associated Diagnosis Comments CT CRITICAL CARE ILL/INJURED PATIENT INIT 30-74 MIN [...] from Last 3 Months Results * CT CRITICAL CARE ILL/INJURED PATIENT INIT 30-74 MIN (12/01/2024 4:04 AM CDT) Pranav Beyer MD - 12/01/2024 4:04 AM CDT Pranav [...] medical record. us Pranav Fernandez MD IN CLINIC/BEDSID E ORDERABLES Final Result * CT Abdomen [...] lt * eGFR (12/01/2024 1:49 AM CDT) Pathologist [facility] eGFR >90 [...] MD LAB BLOOD ORDERABLES Final R esult [facility] [address] [place] [address] * (ABNORMAL) Differential, auto (12/01/2024 1:49 AM CDT) Pathologist [facility] Neutrophil abs 8.27(H) 1.50 - 6.50 K/cumm Imm gran abs 0.04 0.00 - 0.10 K/cumm [facility] Lymphocyte abs 1.58 0.80 - 3.30 K/cumm [facility] Monocyte abs 0.97(H) 0.20 - 0.80 K/cumm [facility] Eosinophil abs 0.03 0.00 - 0.50 K/cumm [facility] Basophil abs 0.05 0.00 - 0.10 K/cumm [facility] Neutrophil pct 75.5 % [facility] Comment: Interpretive Data Percent cell count reference ranges are not reported, since discordance with absolute values may lead to misinterpretation of CBC data. Current Interpretive Data was last revised on 2017. Imm gran pct 0.4 % [facility] Comment: Interpretive Data Percent cell count reference ranges are not reported, since discordance with absolute values may lead to misinterpretation of CBC data. Current Interpretive Data was last revised on 2017. Lymphocyte pct 14.4 % [facility] Comment: Interpretive Data Percent cell count reference ranges are not reported, since discordance with absolute values may lead to misinterpretation of CBC data. Current Interpretive Data was last revised on 2017. Monocyte pct 8.9 % [facility] Comment: Interpretive Data Percent cell count reference ranges are not reported, since discordance with absolute values may lead to misinterpretation of CBC data. Current Interpretive Data was last revised on 2017. Eosinophil pct 0.3 % [facility] Comment: Interpretive Data Percent cell count reference ranges are not reported, since discordance with absolute values may lead to misinterpretation of CBC data. Current Interpretive Data was last revised on 2017. Basophil pct 0.5 % [facility] Comment: Interpretive Data Percent cell count reference ranges are not reported, since discordance with absolute values may lead to misinterpretation of CBC data. Current Interpretive Data was last revised on 2017. Blood 12/01/2024 1:49 AM CDT 12/01/2024 2:08 AM CDT us Domenic Arias MD LAB BLOOD ORDERABLES Final R esult [facility] [address] Department of Laboratories [place], [place] [id number] * (ABNORMAL) CBC with auto differential (12/01/2024 1:49 AM CDT) WBC 10.94(H) 3.80 - 9.90 K/cumm Hgb 13.5 13.0 - 17.5 g/dL [facility] Hct 40.4 38.9 - 50.3 % [facility] Plt 242 150 - 400 K/cumm [facility] MPV 10.5 9.1 - 12.3 fL [facility] RBC 4.59 4.30 - 5.80 M/cumm [facility] MCV 88.0 81.3 - 96.4 fL [facility] MCH 29.4 27.1 - 33.3 pg [facility] MCHC 33.4 32.3 - 35.7 g/dL [facility] RDW CV 15.7(H) 11.1 - 14.9 % [facility] RDW SD 50.5(H) 35.7 - 48.1 fL [facility] NRBC abs 0.00 0.00 - 0.01 K/cumm [facility] Blood 12/01/2024 1:49 AM CDT 12/01/2024 2:08 AM CDT Domenic Arias MD LAB BLOOD ORDERABLES Final R esult Performing Organization Address City/[facility] Co de Phone Number [facility] [address] [email or web address] [address] * Lipase (12/01/2024 1:49 AM CDT) [facility] Lipase 23 10 - 99 Units/L Blood 12/01/2024 1:49 AM CDT 12/01/2024 2:08 AM CDT Domenic Arias MD LAB BLOOD ORDERABLES Final R esult Performing Organization Address City/[facility]/ZIP Co de Phone Number [facility] [address] [email or web address] [address] * (ABNORMAL) Comprehensive metabolic panel (12/01/2024 1:49 AM CDT) [facility] Sodium 142 135 - 145 mmol/L Potassium, pl 4.2 3.3 - 4.9 mmol/L [facility] Chloride 106 97 - 110 mmol/L [facility] CO2 23 22 - 32 mmol/L [facility] Anion gap 13 2 - 15 mmol/L [facility] BUN 6 6 - 25 mg/dL [facility] Creatinine 0.86 0.80 - 1.30 mg/dL [facility] Glucose 99 70 - 199 mg/dL [facility] Comment: Interpretive Data Fasting glucose >/= 126 [...] 2022. Calcium 9.3 8.5 - 10.3 mg/dL [facility] Bilirubin, total 0.6 0.1 - 1.2 mg/dL [facility] Protein, pl 6.2(L) 6.5 - 8.5 g/dL [facility] Albumin 4.0 3.5 - 5.0 g/dL [facility] Alk phos 76 40 - 130 Units/L [facility] ALT 17 7 - 55 Units/L [facility] AST 20 10 - 50 Units/L [facility] Blood 12/01/2024 1:49 AM CDT 12/01/2024 2:08 AM CDT us Domenic Arias MD LAB BLOOD ORDERABLES Final R esult [facility] [address] Department [place] [address] * ECG 12 lead (11/30/2024 10:57 PM CDT) 11/30/2024 10:5 7 PM CDT Narrative [facility] - 12/01/2024 7:47 AM CDT Vent Rate: 64 bpm RR Interval: [address] Interval: 91 msec QRS Duration: 104 msec QT Interval: 382 msec QTC Interval: 392 msec P-R-T Mcdonald: 12 - 72 - 72 degrees IMPRESSION: SINUS RHYTHM WITH SINUS ARRHYTHMIA WITH SHORT CT INTERVAL INCOMPLETE RIGHT BUNDLE BRANCH BLOCK BORDERLINE ECG Electronically Signed By: Mich Quintana MD PhD Domenic Arias MD ECG ORDERABLES Final Result [facility] [employer] [facility] * CT Abdomen Pelvis W Contrast (11/26/2024 [...] clear. Heart size normal. No effusion. LIVER/BILIARY: Dmhi-cz-dqtqupqo steatosis. Unchanged pneumobilia. GALLBLADDER: Absent. SPLEEN: Normal. [...] Aryan Jovel M.D. AR: GIOVANNA Report ID: [id number] Reading Location: [id number] Procedure Note Aryan Jovel MD - 11/26/2024 [...] clear. Heart size normal. No effusion. LIVER/BILIARY: Pmsy-kv-yknkalsn steatosis. Unchanged pneumobilia. GALLBLADDER: Absent. SPLEEN: Normal. [...] Aryan Jovel M.D. AR: GIOVANNA Report ID: [id number] Reading Location: [id number] Blue Warren MD IM CT PROCEDURES F inal Result * Troponin T high-sensitivity 2-hour (11/26/2024 1:13 AM CDT) Trop T hs 8 <=22 ng/L Comment: Interpretive Data For further hscTnT resources including the diagnostic algorithm and an aid in interpretation, copy and paste this link: https://nrl.testcatalog.org/show/hsTrop Current Interpretive Data last revised 2020. Testing performed by: [address] [address] Trop T hs delta -3 ng/L NEEL SMITH Comment:Testing performed by : [address] [address] Trop T hs interp Insignificant NEEL SMITH Comment:Testing performed by : [address] [address] Blood 11/26/2024 1:13 AM CDT 11/26/2024 1:25 AM CDT us Blue Warren MD LAB BLOOD ORDERABLE S Final Result NEEL [address] [facility] Department [place] [address] * Urinalysis reflex to microscopic and culture Urine (11/25/2024 11:13 PM CDT) Color, ur Yellow Yellow Comment:Testing performed by : [address] [address] Clarity, ur Clear Clear NEEL SMITH Comment:Testing performed by : [address] [address] Specific gravity, ur 1.020 1.003 - 1.030 NEEL Comment:Testing performed by : [address] [address] pH, urine 6.0 NEEL Comment: Interpretive Data U rine pH is affected by diet, medications, systemic acid-base disturbances, and renal tubular function. pH may affect urinary stone formation. For example, urine pH below 6.0 may help reduce the tendency for calcium phosphate stones and pH greater than 6.0 may reduce the tendency for uric acid stone formation. Source: [employer] Current Interpretive Data was last revised on 2017 Testing performed by: [address] [address] Protein, ur ql Negative Negative NEEL Comment:Testing performed by : [facility], [address] [place] [address], [place]., [address] Glucose, ur ql Negative Negative NEEL Comment:Testing performed by : [facility], [address] [place] [address], [place]., [address] Ketones, ur Negative Negative NEEL Comment:Testing performed by : [address], [place]., [address] Bilirubin, ur Negative Negative NEEL Comment:Testing performed by : [facility], [address] [place] [address], [place]., [address] Blood, ur Negative Negative NEEL Comment:Testing performed by : [address], [place]., [address] Urobilinogen, ur <2.0 <2.0 mg/dL NEEL Comment:Testing performed by : [address], [place]., [address] Nitrite, ur Negative Negative NEEL Comment:Testing performed by : [address], [place]., [address] Leukocyte esterase, ur Negative Negative NEEL Comment:Testing performed by : [address], [place]., [address] UA reflex comment Reflex conditions for microscopic UA and culture not met. NEEL Comment:Testing performed by : [facility], [address] [place] [address], [place]., [address] Urine 11/25/2024 11:1 3 PM CDT 11/25/2024 11:24 PM CDT us Blue Warren MD LAB MICROBIOLOGY - GENERAL ORDERABLES Final Result NEEL [address] [facility] Department [place] [address] * Troponin T high-sensitivity series (baseline, 2hr, 4hr, 6hr) (11/25/2024 11:06 PM CDT) Trop T hs 11 <=22 ng/L Comment: Interpretive Data For further hscTnT resources including the diagnostic algorithm and an aid in interpretation, copy and paste this link: https://nrl.testcatalog.org/show/hsTrop Current Interpretive Data last revised 2020. Testing performed by: [address] [address] Blood 11/25/2024 11:0 6 PM CDT 11/25/2024 11:24 PM CDT us Blue Warren MD LAB BLOOD ORDERABLE S Final Result Performing Organization Address City/[facility]/ZIP Co de Phone Number NEEL [facility] Department [place] [address] * eGFR (11/25/2024 11:06 PM CDT) eGFR [...] was last reviewed 2021. Testing performed by: [facility], [address] [place] [address]., [address] Blood 11/25/2024 11:0 6 PM CDT 11/25/2024 11:24 PM CDT us Blue Warren MD LAB BLOOD ORDERABLE S Final Result Performing Organization Address City/[facility]/ZIP Co de Phone Number NEEL [address] [facility] Department [place] [address] * (ABNORMAL) Differential, auto (11/25/2024 11:06 PM CDT) Neutrophil abs 13.59(H) 1.50 - 6.50 K/cumm Comment:Testing performed by : [address] [address] Imm gran abs 0.11(H) 0.00 - 0.10 K/cumm NEEL Comment:Testing performed by : [address], [place]., [address] Lymphocyte abs 1.24 0.80 - 3.30 K/cumm NEEL Comment:Testing performed by : [address] [address] Monocyte abs 0.90(H) 0.20 - 0.80 K/cumm NEEL Comment:Testing performed by : [address] [address] Eosinophil abs 0.02 0.00 - 0.50 K/cumm NEEL Comment:Testing performed by : [address] [address] Basophil abs 0.05 0.00 - 0.10 K/cumm NEEL Comment:Testing performed by : [address] [address] Neutrophil pct 85.4 % NEEL Comment: Interpretive Data Percent cell count reference ranges are not reported, since discordance with absolute values may lead to misinterpretation of CBC data. Current Interpretive Data was last revised on 2017. Testing performed by: [address] [address] Imm gran pct 0.7 % NEEL Comment: Interpretive Data Percent cell count reference ranges are not reported, since discordance with absolute values may lead to misinterpretation of CBC data. Current Interpretive Data was last revised on 2017. Testing performed by: [address] [address] Lymphocyte pct 7.8 % NEEL Comment: Interpretive Data Percent cell count reference ranges are not reported, since discordance with absolute values may lead to misinterpretation of CBC data. Current Interpretive Data was last revised on 2017. Testing performed by: [address] [address] Monocyte pct 5.7 % NEEL Comment: Interpretive Data Percent cell count reference ranges are not reported, since discordance with absolute values may lead to misinterpretation of CBC data. Current Interpretive Data was last revised on 2017. Testing performed by: [address] [address] Eosinophil pct 0.1 % NEEL Comment: Interpretive Data Percent cell count reference ranges are not reported, since discordance with absolute values may lead to misinterpretation of CBC data. Current Interpretive Data was last revised on 2017. Testing performed by: [address] [address] Basophil pct 0.3 % NEEL Comment: Interpretive Data Percent cell count reference ranges are not reported, since discordance with absolute values may lead to misinterpretation of CBC data. Current Interpretive Data was last revised on 2017. Testing performed by: [address] [address] Blood 11/25/2024 11:0 6 PM CDT 11/25/2024 11:24 PM CDT us Blue Warren MD LAB BLOOD ORDERABLE S Final Result NEEL [address] [facility] Department [place] [address] * (ABNORMAL) CBC with auto differential (11/25/2024 11:06 PM CDT) WBC 15.91(H) 3.80 - 9.90 K/cumm Comment:Testing performed by : [address] [address] Hgb 15.1 13.0 - 17.5 g/dL NEEL Comment:Testing performed by : [address] [address] Hct 44.2 38.9 - 50.3 % NEEL Comment:Testing performed by : [address], [address] Plt 300 150 - 400 K/cumm NEEL Comment:Testing performed by : [address], [address] MPV 9.7 9.1 - 12.3 fL NEEL Comment:Testing performed by : [address], [address] RBC 5.26 4.30 - 5.80 M/cumm NEEL Comment:Testing performed by : [address], [address] MCV 84.0 81.3 - 96.4 fL NEEL Comment:Testing performed by : [address], [address] MCH 28.7 27.1 - 33.3 pg NEEL Comment:Testing performed by : [address], [address] MCHC 34.2 32.3 - 35.7 g/dL NEEL Comment:Testing performed by : [address], [address] RDW CV 15.2(H) 11.1 - 14.9 % NEEL Comment:Testing performed by : [address], [address] RDW SD 46.3 35.7 - 48.1 fL NEEL Comment:Testing performed by : [address], [address] NRBC abs 0.00 0.00 - 0.01 K/cumm NEEL Comment:Testing performed by : [address], [address] Blood Venous blood specimen / Unknown 11/25/2024 11:06 PM CDT 11/25/2024 11:24 PM CDT Blue Warren MD LAB BLOOD ORDERABLE S Final Result NEEL [address] [address] * Lipase (11/25/2024 11:06 PM CDT) [facility] Lipase 24 10 - 99 Units/L Comment:Testing performed by : [address] [address] Blood Venous blood specimen / Unknown 11/25/2024 11:06 PM CDT 11/25/2024 11:24 PM CDT us Blue Warren MD LAB BLOOD ORDERABLE S Final Result Performing Organization Address [facility] Co de Phone Number NEEL [address] [address] * (ABNORMAL) Comprehensive metabolic panel (11/25/2024 11:06 PM CDT) [facility] Sodium 140 135 - 145 mmol/L Comment:Testing performed by : [address] [address] Potassium, pl 4.1 3.3 - 4.9 mmol/L NEEL Comment:Testing performed by : [address] [address] Chloride 102 97 - 110 mmol/L NEEL Comment:Testing performed by : [address] [address] CO2 24 22 - 32 mmol/L NEEL Comment:Testing performed by : [address] [address] Anion gap 14 2 - 15 mmol/L NEEL Comment:Testing performed by : [address] [address] BUN 10 6 - 25 mg/dL NEEL Comment:Testing performed by : [address] [address] Creatinine 1.01 0.80 - 1.30 mg/dL NEEL Comment:Testing performed by : [address] [address] Glucose 115 70 - 199 mg/dL NEEL [...] was last revised 2022. Testing performed by: [address] [address] Calcium 10.5(H) 8.5 - 10.3 mg/dL NEEL Comment:Testing performed by : [address] [address] Bilirubin, total 0.4 0.1 - 1.2 mg/dL NEEL Comment:Testing performed by : [address] [address] Protein, pl 7.4 6.5 - 8.5 g/dL NEEL Comment:Testing performed by : [address] [address] Albumin 4.5 3.5 - 5.0 g/dL NEEL Comment:Testing performed by : [address] [address] Alk phos 89 40 - 130 Units/L NEEL Comment:Testing performed by : [address] [address] ALT 19 7 - 55 Units/L NEEL Comment:Testing performed by : [address] [address] AST 21 10 - 50 Units/L NEEL Comment:Testing performed by : [address] [address] Blood 11/25/2024 11:0 6 PM CDT 11/25/2024 11:24 PM CDT us Blue Warren MD LAB BLOOD ORDERABLE S Final Result Performing Organization Address [facility]/ZIP Co de Phone Number NEEL [facility] Department [place] [address] * ECG 12 lead (11/25/2024 11:02 PM CDT) Ventricular Rate EKG/Min 74 BPM [facility] Atrial Rate 74 BPM [facility] CT-Interval (MSEC) 80 ms [facility] QRS-Interval (MSEC) 96 ms [facility] QT-Interval (MSEC) 354 ms [facility] QTc 392 ms [facility] P Mcdonald -18 degrees [facility] R Mcdonald 32 degrees [facility] T Mcdonald 56 degrees [facility] Diagnosis Sinus rhythm with sinus arrhythmia with short CT Otherwise normal ECG When compared with ECG of 13-OCT-2024 03:54, No significant change was found Confirmed by DARIEL CARLOS M.D. ([id number]) on 11/26/2024 10:02:21 PM [facility] 11/25/2024 11:0 2 PM CDT 11/26/2024 10:02 PM CDT us Blue Warren MD ECG ORDERABLES Fin al Result Performing Organization Address [facility] de Phone Number [facility] [employer] [facility] * CT Abdomen Pelvis W Contrast (10/18/2024 [...] ur Yellow Yellow Clarity, ur Turbid(A) Clear [facility] Specific gravity, ur 1.014 1.003 - 1.030 [facility] pH, urine 7.5 [facility] Comment: Interpretive Data U rine pH is affected by diet, medications, systemic acid-base disturbances, and renal tubular function. pH may affect urinary stone formation. For example, urine pH below 6.0 may help reduce the tendency for calcium phosphate stones and pH greater than 6.0 may reduce the tendency for uric acid stone formation. Source: [facility] Current Interpretive Data was last revised on 2017 Protein, ur ql Trace Negative [facility] Glucose, ur ql Negative Negative [facility] Ketones, ur 1+(A) Negative [facility] Bilirubin, ur Negative Negative [facility] Blood, ur Negative Negative [facility] Urobilinogen, ur <2.0 <2.0 mg/dL [facility] Nitrite, ur Negative Negative [facility] Leukocyte esterase, ur Negative Negative [facility] UA reflex comment Reflex conditions for microscopic UA and culture not met. [facility] Urine 10/18/2024 3:34 PM CDT 10/18/2024 3:34 PM CDT Oswaldo Burns MD LAB MICROBIOLOGY - GENERAL ORDERABLES Final Result [facility] [address] [place] [address] * eGFR (10/18/2024 12:48 PM CDT) eGFR [...] MD LAB BLOOD ORDERABLES Final R esult [facility] [address] [place] [address] * (ABNORMAL) Differential, auto (10/18/2024 12:48 PM CDT) Neutrophil abs 12.53(H) 1.50 - 6.50 K/cumm Imm gran abs 0.08 0.00 - 0.10 K/cumm [facility] Lymphocyte abs 1.17 0.80 - 3.30 K/cumm [facility] Monocyte abs 1.45(H) 0.20 - 0.80 K/cumm [facility] Eosinophil abs 0.07 0.00 - 0.50 K/cumm [facility] Basophil abs 0.07 0.00 - 0.10 K/cumm [facility] Neutrophil pct 81.5 % [facility] Comment: Interpretive Data Percent cell count reference ranges are not reported, since discordance with absolute values may lead to misinterpretation of CBC data. Current Interpretive Data was last revised on 2017. Imm gran pct 0.5 % [facility] Comment: Interpretive Data Percent cell count reference ranges are not reported, since discordance with absolute values may lead to misinterpretation of CBC data. Current Interpretive Data was last revised on 2017. Lymphocyte pct 7.6 % [facility] Comment: Interpretive Data Percent cell count reference ranges are not reported, since discordance with absolute values may lead to misinterpretation of CBC data. Current Interpretive Data was last revised on 2017. Monocyte pct 9.4 % [facility] Comment: Interpretive Data Percent cell count reference ranges are not reported, since discordance with absolute values may lead to misinterpretation of CBC data. Current Interpretive Data was last revised on 2017. Eosinophil pct 0.5 % [facility] Comment: Interpretive Data Percent cell count reference ranges are not reported, since discordance with absolute values may lead to misinterpretation of CBC data. Current Interpretive Data was last revised on 2017. Basophil pct 0.5 % [facility] Comment: Interpretive Data Percent cell count reference ranges are not reported, since discordance with absolute values may lead to misinterpretation of CBC data. Current Interpretive Data was last revised on 2017. Blood 10/18/2024 12:4 8 PM CDT 10/18/2024 1:27 PM CDT Oswaldo Burns MD LAB BLOOD ORDERABLES Final Result [facility] [address] [place] [address] * (ABNORMAL) CBC with auto differential (10/18/2024 12:48 PM CDT) WBC 15.37(H) 3.80 - 9.90 K/cumm Hgb 14.6 13.0 - 17.5 g/dL [facility] Hct 43.2 38.9 - 50.3 % [facility] Plt 353 150 - 400 K/cumm [facility] MPV 10.0 9.1 - 12.3 fL [facility] RBC 5.10 4.30 - 5.80 M/cumm [facility] MCV 84.7 81.3 - 96.4 fL [facility] MCH 28.6 27.1 - 33.3 pg [facility] MCHC 33.8 32.3 - 35.7 g/dL [facility] RDW CV 15.8(H) 11.1 - 14.9 % [facility] RDW SD 48.2(H) 35.7 - 48.1 fL [facility] NRBC abs 0.00 0.00 - 0.01 K/cumm [facility] Blood Venous blood specimen / Unknown 10/18/2024 12:48 PM CDT 10/18/2024 1:27 PM CDT Oswaldo Burns MD LAB BLOOD ORDERABLES Final Result Performing Organization Address City/[facility] Co de Phone Number [facility] [address] [facility] [place] [address] * Lipase (10/18/2024 12:48 PM CDT) Pathologist [facility] Lipase 36 10 - 99 Units/L Blood Venous blood specimen / Unknown 10/18/2024 12:48 PM CDT 10/18/2024 1:27 PM CDT Oswaldo Burns MD LAB BLOOD ORDERABLES Final Result Performing Organization Address [facility] de Phone Number [facility] [address] [place] [address] * (ABNORMAL) Comprehensive metabolic panel (10/18/2024 12:48 PM CDT) [facility] Sodium 141 135 - 145 mmol/L Potassium, pl 3.8 3.3 - 4.9 mmol/L [facility] Chloride 103 97 - 110 mmol/L [facility] CO2 22 22 - 32 mmol/L [facility] Anion gap 16(H) 2 - 15 mmol/L [facility] BUN 9 6 - 25 mg/dL [facility] Creatinine 1.01 0.80 - 1.30 mg/dL [facility] Glucose 132 70 - 199 mg/dL [facility] Comment: Interpretive Data Fasting glucose >/= 126 [...] 2022. Calcium 9.8 8.5 - 10.3 mg/dL [facility] Bilirubin, total 0.7 0.1 - 1.2 mg/dL [facility] Protein, pl 7.3 6.5 - 8.5 g/dL [facility] Albumin 4.4 3.5 - 5.0 g/dL [facility] Alk phos 83 40 - 130 Units/L [facility] ALT 22 7 - 55 Units/L [facility] AST 28 10 - 50 Units/L [facility] Blood 10/18/2024 12:4 8 PM CDT 10/18/2024 1:27 PM CDT Oswaldo Burns MD LAB BLOOD ORDERABLES Final Result Performing Organization Address City/[facility]/ZIP Co de Phone Number [facility] [address] Department [place] [address] * Lipase - Add on lab test (10/14/2024 4:29 AM CDT) Acceptable Yes Blood 10/14/2024 4:29 AM CDT 10/14/2024 4:29 AM CDT Narrative [facility] - 10/14/2024 4:30 AM CDT Name of Test->Lipase Yusef Bear MD LAB BLOOD ORDERABLES Final Result [facility] [address] [place] [address] * CT Abdomen Pelvis W Contrast (10/14/2024 1:38 AM CDT) Anatomical Region Laterality Modality Body N/A Computed Tomogra phy 10/14/2024 1:29 AM CDT Impressions 10/14/2024 9:11 AM CDT No acute abnormality in the abdomen or pelvis. No pancreatitis. For the purposes of senior quality control technician, this study was initially interpreted by [...] pelvis. No pancreatitis. For the purposes of senior quality control technician, this study was initially interpreted by teleradiology. There is no significant discrepancy. Dictated by: López Wynn MD The radiology attending physician has personally reviewed this study, and had reviewed and/or edited this written report and agrees with it. Electronically signed by: Freddy Moreno M.D., MPH Nasir Reyez DO IMG CT PROCEDURES Final Res ult * (ABNORMAL) Urinalysis reflex to microscopic and culture Urine (10/13/2024 10:10 PM CDT) Color, ur Yellow Yellow Clarity, ur Clear Clear [facility] Specific gravity, ur 1.010 1.003 - 1.030 [facility] pH, urine 6.5 [facility] Comment: Interpretive Data U rine pH is affected by diet, medications, systemic acid-base disturbances, and renal tubular function. pH may affect urinary stone formation. For example, urine pH below 6.0 may help reduce the tendency for calcium phosphate stones and pH greater than 6.0 may reduce the tendency for uric acid stone formation. Source: [facility] [place] Current Interpretive Data was last revised on 2017 Protein, ur ql Negative Negative [facility] Glucose, ur ql Negative Negative [facility] Ketones, ur 1+(A) Negative [facility] Bilirubin, ur Negative Negative [facility] Blood, ur Negative Negative [facility] Urobilinogen, ur <2.0 <2.0 mg/dL [facility] Nitrite, ur Negative Negative [facility] Leukocyte esterase, ur Negative Negative [facility] UA reflex comment Reflex conditions for microscopic UA and culture not met. [facility] Urine 10/13/2024 10:1 0 PM CDT 10/13/2024 10:11 PM CDT Abdiel Donaldson MD LAB MICROBIOLOGY - GENERAL O RDERABLES Final Result Performing Organization Address City/[facility] Co de Phone Number [facility] [address] [place] [address] * eGFR (10/13/2024 10:06 PM CDT) eGFR [...] ORDERABLES Final R esult Performing Organization Address City/[facility]/ZIP Co de Phone Number [facility] [address] Department of Laboratories [place], [place] [id number] * (ABNORMAL) Differential, auto (10/13/2024 10:06 PM CDT) Neutrophil abs 11.31(H) 1.50 - 6.50 K/cumm Imm gran abs 0.06 0.00 - 0.10 K/cumm [facility] Lymphocyte abs 1.47 0.80 - 3.30 K/cumm [facility] Monocyte abs 1.09(H) 0.20 - 0.80 K/cumm [facility] Eosinophil abs 0.07 0.00 - 0.50 K/cumm [facility] Basophil abs 0.04 0.00 - 0.10 K/cumm [facility] Neutrophil pct 80.5 % [facility] Comment: Interpretive Data Percent cell count reference ranges are not reported, since discordance with absolute values may lead to misinterpretation of CBC data. Current Interpretive Data was last revised on 2017. Imm gran pct 0.4 % [facility] Comment: Interpretive Data Percent cell count reference ranges are not reported, since discordance with absolute values may lead to misinterpretation of CBC data. Current Interpretive Data was last revised on 2017. Lymphocyte pct 10.5 % [facility] Comment: Interpretive Data Percent cell count reference ranges are not reported, since discordance with absolute values may lead to misinterpretation of CBC data. Current Interpretive Data was last revised on 2017. Monocyte pct 7.8 % [facility] Comment: Interpretive Data Percent cell count reference ranges are not reported, since discordance with absolute values may lead to misinterpretation of CBC data. Current Interpretive Data was last revised on 2017. Eosinophil pct 0.5 % [facility] Comment: Interpretive Data Percent cell count reference ranges are not reported, since discordance with absolute values may lead to misinterpretation of CBC data. Current Interpretive Data was last revised on 2017. Basophil pct 0.3 % [facility] Comment: Interpretive Data Percent cell count reference ranges are not reported, since discordance with absolute values may lead to misinterpretation of CBC data. Current Interpretive Data was last revised on 2017. Blood 10/13/2024 10:0 6 PM CDT 10/13/2024 10:43 PM CDT us Abdiel Donaldson MD LAB BLOOD ORDERABLES Final R esult [facility] [address] [place] [address] * (ABNORMAL) CBC with auto differential (10/13/2024 10:06 PM CDT) Pathologist [facility] WBC 14.04(H) 3.80 - 9.90 K/cumm Hgb 14.1 13.0 - 17.5 g/dL [facility] Hct 43.6 38.9 - 50.3 % [facility] Plt 312 150 - 400 K/cumm [facility] MPV 10.3 9.1 - 12.3 fL [facility] RBC 5.01 4.30 - 5.80 M/cumm [facility] MCV 87.0 81.3 - 96.4 fL [facility] MCH 28.1 27.1 - 33.3 pg [facility] MCHC 32.3 32.3 - 35.7 g/dL [facility] RDW CV 15.6(H) 11.1 - 14.9 % [facility] RDW SD 49.1(H) 35.7 - 48.1 fL [facility] NRBC abs 0.00 0.00 - 0.01 K/cumm [facility] Blood Venous blood specimen / Unknown 10/13/2024 10:06 PM CDT 10/13/2024 10:43 PM CDT Abdiel Donaldson MD LAB BLOOD ORDERABLES Final R esult Performing Organization Address City/[facility]/ZIP Co de Phone Number [facility] [address] [place] [address] * (ABNORMAL) Lipase (10/13/2024 10:06 PM CDT) Pathologist [facility] Lipase 119(H) 10 - 99 Units/L Blood 10/13/2024 10:0 6 PM CDT 10/13/2024 10:43 PM CDT Abdiel Donaldson MD LAB BLOOD ORDERABLES Final R esult [facility] [address] [place] [address] * (ABNORMAL) Comprehensive metabolic panel (10/13/2024 10:06 PM CDT) Sodium 144 135 - 145 mmol/L Potassium, pl 3.7 3.3 - 4.9 mmol/L [facility] Chloride 104 97 - 110 mmol/L [facility] CO2 22 22 - 32 mmol/L [facility] Anion gap 18(H) 2 - 15 mmol/L [facility] BUN 7 6 - 25 mg/dL [facility] Creatinine 0.91 0.80 - 1.30 mg/dL [facility] Glucose 95 70 - 199 mg/dL [facility] Comment: Interpretive Data Fasting glucose >/= 126 [...] 2022. Calcium 9.3 8.5 - 10.3 mg/dL [facility] Bilirubin, total 0.4 0.1 - 1.2 mg/dL [facility] Protein, pl 7.0 6.5 - 8.5 g/dL [facility] Albumin 4.5 3.5 - 5.0 g/dL [facility] Alk phos 82 40 - 130 Units/L [facility] ALT 16 7 - 55 Units/L [facility] AST 19 10 - 50 Units/L [facility] Blood Venous blood specimen / Unknown 10/13/2024 10:06 PM CDT 10/13/2024 10:43 PM CDT us Abdiel Donaldson MD LAB BLOOD ORDERABLES Final R esult [facility] [address] [place] [address] * ECG 12 lead (10/13/2024 9:51 PM CDT) 10/13/2024 9:51 PM CDT Narrative [facility] - 10/14/2024 9:31 AM CDT Vent Rate: 68 bpm RR Interval: [address] Interval: 129 msec QRS Duration: 113 msec QT Interval: 357 msec QTC Interval: 374 msec P-R-T Mcdonald: 26 - 53 - 61 degrees IMPRESSION: SINUS RHYTHM WITH A BORDERLINE SHORT CT INTERVAL WITH MARKED SINUS ARRHYTHMIA INCOMPLETE RIGHT BUNDLE-BRANCH BLOCK BORDERLINE ECG Electronically Signed By: Calvin Sanabria MD mobap us Jose Francisco Jessica MD ECG ORDERABLES Final Resu lt [facility] * (ABNORMAL) Differential, auto (10/13/2024 7:40 AM CDT) Neutrophil abs 12.72(H) 1.50 - 6.50 K/cumm Imm gran abs 0.06 0.00 - 0.10 K/cumm [facility] Lymphocyte abs 0.98 0.80 - 3.30 K/cumm [facility] Monocyte abs 0.59 0.20 - 0.80 K/cumm [facility] Eosinophil abs 0.01 0.00 - 0.50 K/cumm [facility] Basophil abs 0.04 0.00 - 0.10 K/cumm [facility] Neutrophil pct 88.3 % [facility] Comment: Interpretive Data Percent cell count reference ranges are not reported, since discordance with absolute values may lead to misinterpretation of CBC data. Current Interpretive Data was last revised on 2017. Imm gran pct 0.4 % [facility] Comment: Interpretive Data Percent cell count reference ranges are not reported, since discordance with absolute values may lead to misinterpretation of CBC data. Current Interpretive Data was last revised on 2017. Lymphocyte pct 6.8 % [facility] Comment: Interpretive Data Percent cell count reference ranges are not reported, since discordance with absolute values may lead to misinterpretation of CBC data. Current Interpretive Data was last revised on 2017. Monocyte pct 4.1 % [facility] Comment: Interpretive Data Percent cell count reference ranges are not reported, since discordance with absolute values may lead to misinterpretation of CBC data. Current Interpretive Data was last revised on 2017. Eosinophil pct 0.1 % [facility] Comment: Interpretive Data Percent cell count reference ranges are not reported, since discordance with absolute values may lead to misinterpretation of CBC data. Current Interpretive Data was last revised on 2017. Basophil pct 0.3 % [facility] Comment: Interpretive Data Percent cell count reference ranges are not reported, since discordance with absolute values may lead to misinterpretation of CBC data. Current Interpretive Data was last revised on 2017. Blood 10/13/2024 7:40 AM CDT 10/13/2024 7:42 AM CDT us Rodney Mejia MD LAB BLOOD ORDERABLES On license of [facility] Result [place] [id number] [facility] Department [place] [address] * (ABNORMAL) CBC with auto differential (10/13/2024 7:40 AM CDT) WBC 14.40(H) 3.80 - 9.90 K/cumm Hgb 13.1 13.0 - 17.5 g/dL [facility] Hct 40.8 38.9 - 50.3 % [facility] Plt 242 150 - 400 K/cumm [facility] MPV 9.9 9.1 - 12.3 fL [facility] RBC 4.61 4.30 - 5.80 M/cumm [facility] MCV 88.5 81.3 - 96.4 fL [facility] MCH 28.4 27.1 - 33.3 pg [facility] MCHC 32.1(L) 32.3 - 35.7 g/dL [facility] RDW CV 15.4(H) 11.1 - 14.9 % [facility] RDW SD 49.5(H) 35.7 - 48.1 fL [facility] NRBC abs 0.00 0.00 - 0.01 K/cumm [facility] Blood 10/13/2024 7:40 AM CDT 10/13/2024 7:42 AM CDT Narrative [facility] - 10/13/2024 7:45 AM CDT For after fluids Rodney Mejia MD LAB BLOOD ORDERABLES Fi nal Result Performing Organization Address [facility] de Phone Number [address] [address] * Sepsis Lactate w/ Reflex (10/13/2024 4:57 AM CDT) Pathologist [facility] Sepsis Lactate 1.1 0.7 - 2.0 mmol/L Blood 10/13/2024 4:57 AM CDT 10/13/2024 4:59 AM CDT Rodney Mejia MD LAB BLOOD ORDERABLES Fi nal Result Performing Organization Address [facility] de Phone Number [address] [address] * (ABNORMAL) Drugs of Abuse Screen, Urine with Reflex Confirmation (10/13/2024 4:13 AM CDT) Pathologist [facility] Amphetamine, ur Not Detected CutOff 500ng/mL [...] Screen Positive, presumptive (A) CutOff 50 ng/mL [facility] Comment: Interpretive Data - Cannabinoids: Samples [...] LAB URINE ORDERABLES Fi nal Result NEEL [address] [facility] Department [place] [address] * Troponin T high-sensitivity series [...] ORDERABLES Fi nal Result Performing Organization Address [facility] Co de Phone Number NEEL [address] [place] [address] * eGFR (10/13/2024 4:08 AM CDT) Pathologist [facility] eGFR 83 >=60 mL/min/1. 73 m2 Comment: [...] ORDERABLES Fi nal Result Performing Organization Address [facility] de Phone Number NEEL [address] Department [place] [address] * (ABNORMAL) Differential, auto (10/13/2024 4:08 AM CDT) Pathologist [facility] Neutrophil abs 12.87(H) 1.50 - 6.50 K/cumm Imm gran abs 0.09 0.00 - 0.10 K/cumm [facility] Lymphocyte abs 2.58 0.80 - 3.30 K/cumm [facility] Monocyte abs 1.61(H) 0.20 - 0.80 K/cumm [facility] Eosinophil abs 0.19 0.00 - 0.50 K/cumm [facility] Basophil abs 0.07 0.00 - 0.10 K/cumm [facility] Neutrophil pct 74.0 % [facility] Comment: Interpretive Data Percent [...] revised on 2017. Lymphocyte pct 14.8 % [facility] Comment: Interpretive Data Percent cell count reference ranges are not reported, since discordance with absolute values may lead to misinterpretation of CBC data. Current Interpretive Data was last revised on 2017. Monocyte pct 9.2 % [facility] Comment: Interpretive Data Percent [...] LAB BLOOD ORDERABLES Fi nal Result NEEL [address] [facility] Department [place] [address] * (ABNORMAL) Urinalysis reflex to microscopic and culture Urine (10/13/2024 4:08 AM CDT) Color, ur Yellow Yellow Clarity, ur Cloudy(A) Clear [facility] Specific gravity, ur 1.013 1.003 - 1.030 [facility] pH, urine 7.5 [facility] Comment: Interpretive Data U rine pH is affected by diet, medications, systemic acid-base disturbances, and renal tubular function. pH may affect urinary stone formation. For example, urine pH below 6.0 may help reduce the tendency for calcium phosphate stones and pH greater than 6.0 may reduce the tendency for uric acid stone formation. Source: [facility] Current Interpretive Data was last revised [...] and culture not met. [facility] Urine 10/13/2024 4:08 AM CDT 10/13/2024 4:16 AM CDT Rodney Mejia MD LAB MICROBIOLOGY - [facility] ORDERABLES Final Result [facility] [address] [facility] Department [place] [address] * (ABNORMAL) CBC with auto differential (10/13/2024 4:08 AM CDT) WBC 17.41(H) 3.80 - 9.90 K/cumm Hgb 13.8 13.0 - 17.5 g/dL [facility] Hct 41.2 38.9 - 50.3 % [facility] Plt 291 150 - 400 K/cumm [facility] MPV 9.9 9.1 - 12.3 fL [facility] RBC 4.87 4.30 - 5.80 M/cumm [facility] MCV 84.6 81.3 - 96.4 fL [facility] MCH 28.3 27.1 - 33.3 pg [facility] MCHC 33.5 32.3 - 35.7 g/dL [facility] RDW CV 15.4(H) 11.1 - 14.9 % [facility] RDW SD 46.5 35.7 - 48.1 fL [facility] NRBC abs 0.00 0.00 - 0.01 K/cumm [facility] Blood Venous blood specimen / Unknown 10/13/2024 4:08 AM CDT 10/13/2024 4:16 AM CDT Rodney Mejia MD LAB BLOOD ORDERABLES Fi nal Result Performing Organization Address City/[facility] de Phone Number [address] [place] [address] * (ABNORMAL) Lipase (10/13/2024 4:08 AM CDT) [facility] Lipase 270(H) 10 - 99 Units/L Blood Venous blood specimen / Unknown 10/13/2024 4:08 AM CDT 10/13/2024 4:16 AM CDT Rodney Mejia MD LAB BLOOD ORDERABLES Fi nal Result Performing Organization Address [facility] de Phone Number [address] [place] [address] * Comprehensive metabolic panel (10/13/2024 4:08 AM CDT) [facility] Sodium 141 135 - 145 mmol/L Potassium, pl 3.8 3.3 - 4.9 mmol/L [facility] Chloride 104 97 - 110 mmol/L [facility] CO2 22 22 - 32 mmol/L [facility] Anion gap 15 2 - 15 mmol/L [facility] BUN 12 6 - 25 mg/dL [facility] Creatinine 1.13 0.80 - 1.30 mg/dL [facility] Glucose 110 70 - 199 mg/dL [facility] Comment: [...] 2022. Calcium 9.2 8.5 - 10.3 mg/dL [facility] Bilirubin, total 0.3 0.1 - 1.2 mg/dL [facility] Protein, pl 6.8 6.5 - 8.5 g/dL [facility] Albumin 4.2 3.5 - 5.0 g/dL [facility] Alk phos 77 40 - 130 Units/L [facility] ALT 15 7 - 55 Units/L [facility] AST 19 10 - 50 Units/L [facility] Blood 10/13/2024 4:08 AM CDT 10/13/2024 4:16 AM CDT Rodney Mejia MD LAB BLOOD ORDERABLES Fi nal Result Performing Organization Address City/[facility]/ZIP Co de Phone Number [facility] [address] [facility] Department [place] [address] * ECG 12 lead (10/13/2024 3:54 AM CDT) Ventricular Rate EKG/Min 66 BPM [facility] Atrial Rate 66 BPM [facility] CT-Interval (MSEC) 86 ms [facility] QRS-Interval (MSEC) 100 ms [facility] QT-Interval (MSEC) 376 ms [facility] QTc 394 ms [facility] P Mcdonald 3 degrees [facility] R Mcdonald 45 degrees [facility] T Mcdonald 52 degrees [facility] Diagnosis Sinus rhythm with short CT Incomplete right bundle branch block Confirmed by HOLLAND MELGAR M.D. ([id number]) on 10/13/2024 9:29:09 AM [facility] 10/13/2024 3:54 AM CDT 10/13/2024 9:29 AM CDT Rodney Mejia MD ECG ORDERABLES Final R esult Performing Organization Address City/[facility]/ZIP Co de Phone Number [facility] * eGFR (10/08/2024 7:25 PM CDT) eGFR [...] was last reviewed 2021. Testing performed by: [address] [address] Blood 10/08/2024 7:25 PM CDT 10/08/2024 7:29 PM CDT us Lilliana LAWTON LAB BLOOD ORDERABLES Final Result NEEL [address] [facility] Department [place] [address] * (ABNORMAL) Differential, auto (10/08/2024 7:25 PM CDT) Pathologist [facility] Neutrophil abs 5.02 1.50 - 6.50 K/cumm Comment:Testing performed by : [address] [address] Imm gran abs 0.04 0.00 - 0.10 K/cumm NEEL Comment:Testing performed by : [address] [address] Lymphocyte abs 3.13 0.80 - 3.30 K/cumm NEEL Comment:Testing performed by : [address] [address] Monocyte abs 1.11(H) 0.20 - 0.80 K/cumm NEEL Comment:Testing performed by : [address], [place]., [address] Eosinophil abs 0.10 0.00 - 0.50 K/cumm [facility] Comment:Testing performed by : [address], [place]., [address] Basophil abs 0.06 0.00 - 0.10 K/cumm [facility] Comment:Testing performed by : [address] [address] Neutrophil pct 53.1 % [facility] Comment: Interpretive Data Percent cell count reference ranges are not reported, since discordance with absolute values may lead to misinterpretation of CBC data. Current Interpretive Data was last revised on 2017. Testing performed by: [address] [address] Imm gran pct 0.4 % [facility] Comment: Interpretive Data Percent cell count reference ranges are not reported, since discordance with absolute values may lead to misinterpretation of CBC data. Current Interpretive Data was last revised on 2017. Testing performed by: [address] [address] Lymphocyte pct 33.1 % [facility] Comment: Interpretive Data Percent cell count reference ranges are not reported, since discordance with absolute values may lead to misinterpretation of CBC data. Current Interpretive Data was last revised on 2017. Testing performed by: [address] [address] Monocyte pct 11.7 % [facility] Comment: Interpretive Data Percent cell count reference ranges are not reported, since discordance with absolute values may lead to misinterpretation of CBC data. Current Interpretive Data was last revised on 2017. Testing performed by: [address] [address] Eosinophil pct 1.1 % [facility] Comment: Interpretive Data Percent cell count reference ranges are not reported, since discordance with absolute values may lead to misinterpretation of CBC data. Current Interpretive Data was last revised on 2017. Testing performed by: [address] [address] Basophil pct 0.6 % NEEL SMITH Comment: Interpretive Data Percent cell count reference ranges are not reported, since discordance with absolute values may lead to misinterpretation of CBC data. Current Interpretive Data was last revised on 2017. Testing performed by: [address] [address] Blood 10/08/2024 7:25 PM CDT 10/08/2024 7:29 PM CDT Lilliana LAWTON LAB BLOOD ORDERABLES Final Result NEEL SMITH [facility]0 [facility] Department [place] [address] * (ABNORMAL) CBC with auto differential (10/08/2024 7:25 PM CDT) WBC 9.46 3.80 - 9.90 K/cumm Comment:Testing performed by : [address] [address] Hgb 15.0 13.0 - 17.5 g/dL NEEL SMITH Comment:Testing performed by : [address] [address] Hct 44.6 38.9 - 50.3 % NEEL SMITH Comment:Testing performed by : [address] [address] Plt 321 150 - 400 K/cumm NEEL SMITH Comment:Testing performed by : [address] [address] MPV 10.0 9.1 - 12.3 fL NEEL SMITH Comment:Testing performed by : [address] [address] RBC 5.38 4.30 - 5.80 M/cumm NEEL SMITH Comment:Testing performed by : [address] [address] MCV 82.9 81.3 - 96.4 fL NEEL SMITH Comment:Testing performed by : [address] [address] MCH 27.9 27.1 - 33.3 pg NEEL SMITH Comment:Testing performed by : [address] [address] MCHC 33.6 32.3 - 35.7 g/dL NEEL SMITH Comment:Testing performed by : [address] [address] RDW CV 15.5(H) 11.1 - 14.9 % NEEL SMITH Comment:Testing performed by : [address], [address] RDW SD 46.7 35.7 - 48.1 fL NEEL SMITH Comment:Testing performed by : [address], [address] NRBC abs 0.00 0.00 - 0.01 K/cumm NEEL Comment:Testing performed by : [address] [address] Blood Venous blood specimen / Unknown 10/08/2024 7:25 PM CDT 10/08/2024 7:29 PM CDT Lilliana LAWTON LAB BLOOD ORDERABLES Final Result Performing Organization Address City/[facility]/ZIP Co de Phone Number [address] [email or web address] [address] * Lipase (10/08/2024 7:25 PM CDT) Lipase 42 10 - 99 Units/L Comment:Testing performed by : [address] [address] Blood Venous blood specimen / Unknown 10/08/2024 7:25 PM CDT 10/08/2024 7:29 PM CDT Lilliana LAWTON LAB BLOOD ORDERABLES Final Result [address] [place] [address] * Comprehensive metabolic panel (10/08/2024 7:25 PM CDT) Sodium 141 135 - 145 mmol/L Comment:Testing performed by : [address] [address] Potassium, pl 4.3 3.3 - 4.9 mmol/L NEEL Comment: Hemolyzed; Potassium value may be falsely elevated by as much as 1.0 mmol/L. Suggest redraw and reanalysis. Testing performed by: [address], [place]., [address] Chloride 105 97 - 110 mmol/L NEEL Comment:Testing performed by : [address] [address] CO2 22 22 - 32 mmol/L NEEL Comment:Testing performed by : [address] [address] Anion gap 14 2 - 15 mmol/L NEEL Comment:Testing performed by : [address] [address] BUN 7 6 - 25 mg/dL NEEL Comment:Testing performed by : [address] [address] Creatinine 1.02 0.80 - 1.30 mg/dL NEEL Comment:Testing performed by : [address] [address] Glucose 104 70 - 199 mg/dL NEEL [...] was last revised 2022. Testing performed by: [address] [address] Calcium 10.1 8.5 - 10.3 mg/dL NEEL Comment:Testing performed by : [address] [address] Bilirubin, total 0.3 0.1 - 1.2 mg/dL NEEL Comment:Testing performed by : [address] [address] Protein, pl 7.7 6.5 - 8.5 g/dL NEEL Comment:Testing performed by : [address] [address] Albumin 4.8 3.5 - 5.0 g/dL NEEL Comment:Testing performed by : [address], [address] Alk phos 88 40 - 130 Units/L NEEL Comment:Testing performed by : [address], [address] ALT 24 7 - 55 Units/L NEEL Comment:Testing performed by : [address] [address] AST 25 10 - 50 Units/L NEEL Comment: Hemolyzed; result may be falsely elevated Testing performed by: [address], [address] Blood 10/08/2024 7:25 PM CDT 10/08/2024 7:29 PM CDT Lilliana LAWTON LAB BLOOD ORDERABLES Final Result NEEL [address] [facility] Department of Laboratories [place], [place] [id number] * CTA Chest Abdomen Pelvis (10/07/2024 6:41 [...] Melissa Phoenix M.D. SN T: Report ID: [id number] Reading Location: [place] [address] Procedure Note Melissa Phoenix MD - 10/07/2024 [...] Melissa Phoenix M.D. SN T: Report ID: [id number] Reading Location: [place] [address] Jose Francisco Harper DO IMG CT PROCEDURES [...] states this started about an hour ago DOPER. 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 SN T: Report ID: [id number] Reading Location: [id number] Procedure Note Melissa Phoenix MD - 10/07/2024 EXAM DESCRIPTION: XR CHEST 1 VIEW REASON FOR STUDY: Abd pain, unspecified C/o upper L quad abd pain. Pt states this started about an hour ago DOPER.Pt states that he was recently hospitalized for [...] Melissa Phoenix M.D. SN T: Report ID: [id number] Reading Location: [id number] Jose Francisco Harper DO IMG XR PROCEDURES [...] AM CDT 10/07/2024 6:07 AM CDT us Jose Francisco Rubio Harper LAB BLOOD ORDERABLES Final Result Performing Organization Address City/[facility] Co de Phone Number NEEL [address] [facility] Department [place] [address] * ECG 12 lead (10/07/2024 4:11 AM CDT) Ventricular Rate EKG/Min 65 BPM [facility] Atrial Rate 65 BPM [facility] CT-Interval (MSEC) 108 ms [facility] QRS-Interval (MSEC) 102 ms [facility] QT-Interval (MSEC) 388 ms [facility] QTc 403 ms [facility] P Mcdonald 30 degrees [facility] R Mcdonald 56 degrees [facility] T Mcdonald 58 degrees [facility] Diagnosis Sinus rhythm with short CT Otherwise normal ECG When compared with ECG of 27-JUN-2024 09:54, No significant change was found Confirmed by ASHLIE BERMEO M.D. ([id number]) on 10/07/2024 11:47:08 PM [facility] 10/07/2024 4:11 AM CDT 10/07/2024 11:47 PM CDT us Jose Francisco Rubio Harper ECG ORDERABLES Final Resul t Performing Organization Address [facility] de Phone Number [facility] * Urinalysis reflex to microscopic and culture [...] for uric acid stone formation. Source: [employer] Current Interpretive Data was last revised [...] and culture not met. [facility] Urine 10/07/2024 4:06 AM CDT 10/07/2024 4:10 AM CDT [facility] - GENERAL ORDERABLES Final Result Performing Organization Address [facility] de Phone Number NEEL [address] [place] [address] * Troponin T high-sensitivity series (baseline, 2hr, 4hr, 6hr) (10/07/2024 4:00 AM CDT) [facility] Trop T hs <6 <=22 ng/L Comment: Interpretive Data For further hscTnT resources including the diagnostic algorithm and an aid in interpretation, copy and paste this link: https://nrl.testcatalog.org/show/hsTrop Current Interpretive Data last revised 2020. Blood 10/07/2024 4:00 AM CDT 10/07/2024 4:02 AM CDT Jose Francisco Rubio [facility] LAB BLOOD ORDERABLES Final Result Performing Organization Address [facility] Co de Phone Number QUINT[address] [place] [address] * eGFR (10/07/2024 4:00 AM CDT) [facility] eGFR 87 >=60 mL/min/1. 73 m2 [...] Harper DO LAB BLOOD ORDERABLES Final Result [place] [address] [facility] Department [place] [address] * (ABNORMAL) Differential, auto (10/07/2024 4:00 AM CDT) Pathologist [facility] Neutrophil abs 5.81 1.50 - 6.50 K/cumm Imm gran abs 0.04 0.00 - 0.10 K/cumm [facility] Lymphocyte abs 3.73(H) 0.80 - 3.30 K/cumm [facility] Monocyte abs 1.14(H) 0.20 - 0.80 K/cumm [facility] Eosinophil abs 0.27 0.00 - 0.50 K/cumm [facility] Basophil abs 0.06 0.00 - 0.10 K/cumm [facility] Neutrophil pct 52.6 % [facility] Comment: Interpretive Data Percent cell count reference ranges are not reported, since discordance with absolute values may lead to misinterpretation of CBC data. Current Interpretive Data was last revised on 2017. Imm gran pct 0.4 % [facility] Comment: Interpretive Data Percent cell count reference ranges are not reported, since discordance with absolute values may lead to misinterpretation of CBC data. Current Interpretive Data was last revised on 2017. Lymphocyte pct 33.8 % [facility] Comment: Interpretive Data Percent cell count reference ranges are not reported, since discordance with absolute values may lead to misinterpretation of CBC data. Current Interpretive Data was last revised on 2017. Monocyte pct 10.3 % [facility] Comment: Interpretive Data Percent cell count reference ranges are not reported, since discordance with absolute values may lead to misinterpretation of CBC data. Current Interpretive Data was last revised on 2017. Eosinophil pct 2.4 % [facility] Comment: Interpretive Data Percent cell count reference ranges are not reported, since discordance with absolute values may lead to misinterpretation of CBC data. Current Interpretive Data was last revised on 2017. Basophil pct 0.5 % [facility] Comment: Interpretive Data Percent cell count reference ranges are not reported, since discordance with absolute values may lead to misinterpretation of CBC data. Current Interpretive Data was last revised on 2017. Blood 10/07/2024 4:00 AM CDT 10/07/2024 4:02 AM CDT Jose Francisco Harper DO LAB BLOOD ORDERABLES Final Result [place] [address] [facility] Department [place] [address] * (ABNORMAL) CBC with auto differential (10/07/2024 4:00 AM CDT) WBC 11.05(H) 3.80 - 9.90 K/cumm Hgb 14.9 13.0 - 17.5 g/dL [facility] Hct 44.7 38.9 - 50.3 % [facility] Plt 281 150 - 400 K/cumm [facility] MPV 9.8 9.1 - 12.3 fL [facility] RBC 5.28 4.30 - 5.80 M/cumm [facility] MCV 84.7 81.3 - 96.4 fL [facility] MCH 28.2 27.1 - 33.3 pg [facility] MCHC 33.3 32.3 - 35.7 g/dL [facility] RDW CV 15.3(H) 11.1 - 14.9 % [facility] RDW SD 46.6 35.7 - 48.1 fL [facility] NRBC abs 0.00 0.00 - 0.01 K/cumm [facility] Blood Venous blood specimen / Unknown 10/07/2024 4:00 AM CDT 10/07/2024 4:02 AM CDT Jose Francisco Rubio [facility] LAB BLOOD ORDERABLES Final Result Performing Organization Address [facility] de Phone Number [address] [place] [address] * (ABNORMAL) Lipase (10/07/2024 4:00 AM CDT) [facility] Lipase 104(H) 10 - 99 Units/L Blood Venous blood specimen / Unknown 10/07/2024 4:00 AM CDT 10/07/2024 4:02 AM CDT Jose Francisco [facility] LAB BLOOD ORDERABLES Final Result Performing Organization Address [facility] de Phone Number [address] [address] * Comprehensive metabolic panel (10/07/2024 4:00 AM CDT) [facility] Sodium 142 135 - 145 mmol/L Potassium, pl 4.1 3.3 - 4.9 mmol/L [facility] Chloride 107 97 - 110 mmol/L [facility] CO2 23 22 - 32 mmol/L [facility] Anion gap 12 2 - 15 mmol/L [facility] BUN 9 6 - 25 mg/dL [facility] Creatinine 1.08 0.80 - 1.30 mg/dL [facility] Glucose 90 70 - 199 mg/dL [facility] Comment: [...] 2022. Calcium 9.4 8.5 - 10.3 mg/dL [facility] Bilirubin, total 0.2 0.1 - 1.2 mg/dL [facility] Protein, pl 7.1 6.5 - 8.5 g/dL [facility] Albumin 4.4 3.5 - 5.0 g/dL [facility] Alk phos 81 40 - 130 Units/L [facility] ALT 23 7 - 55 Units/L [facility] AST 24 10 - 50 Units/L [facility] Blood 10/07/2024 4:00 AM CDT 10/07/2024 4:02 AM CDT Jose Francisco Harper DO LAB BLOOD ORDERABLES Final Result NEEL [address] [facility] Department [place] [address] * eGFR (10/03/2024 7:08 AM CDT) eGFR [...] ORDERABLES Final Res ult Performing Organization Address [facility] Co de Phone Number NEEL [address] [place] [address] * (ABNORMAL) CBC without differential (10/03/2024 7:08 AM CDT) Pathologist [facility] WBC 13.42(H) 3.80 - 9.90 K/cumm Hgb 12.4(L) 13.0 - 17.5 g/dL [facility] Hct 37.9(L) 38.9 - 50.3 % [facility] Plt 226 150 - 400 K/cumm [facility] MPV 10.0 9.1 - 12.3 fL [facility] RBC 4.43 4.30 - 5.80 M/cumm [facility] MCV 85.6 81.3 - 96.4 fL [facility] MCH 28.0 27.1 - 33.3 pg [facility] MCHC 32.7 32.3 - 35.7 g/dL [facility] RDW CV 15.4(H) 11.1 - 14.9 % [facility] RDW SD 48.1 35.7 - 48.1 fL [facility] NRBC abs 0.00 0.00 - 0.01 K/cumm [facility] Blood 10/03/2024 7:08 AM CDT 10/03/2024 7:22 AM CDT us Fred Toth MD LAB BLOOD ORDERABLES Final Res ult Performing Organization Address City/[facility]/ZIP Co de Phone Number NEEL [address] [place] [address] * Lipase (10/03/2024 7:08 AM CDT) Pathologist [facility] Lipase 55 10 - 99 Units/L Blood 10/03/2024 7:08 AM CDT 10/03/2024 7:22 AM CDT us Fred Toth MD LAB BLOOD ORDERABLES Final Res ult Performing Organization Address City/[facility]/ZIP Co de Phone Number NEEL [address] [facility] [place] [address] * Basic metabolic panel (10/03/2024 7:08 AM CDT) Sodium 141 135 - 145 mmol/L Potassium, pl 4.4 3.3 - 4.9 mmol/L [facility] Chloride 107 97 - 110 mmol/L [facility] CO2 24 22 - 32 mmol/L [facility] Anion gap 10 2 - 15 mmol/L [facility] BUN 9 6 - 25 mg/dL [facility] Creatinine 0.96 0.80 - 1.30 mg/dL [facility] Glucose 100 70 - 199 mg/dL [facility] Comment: [...] 2022. Calcium 8.9 8.5 - 10.3 mg/dL [facility] Blood 10/03/2024 7:08 AM CDT 10/03/2024 7:22 AM CDT us Fred Toth MD LAB BLOOD ORDERABLES Final Res ult NEEL [address] [facility] [place] [address] * (ABNORMAL) Lipid panel (10/03/2024 1:54 AM [...] last revised on 2017. Testing performed by: [address] [address] Triglycerides 115 <=149 mg/dL NEEL Comment: Interpretive [...] last revised on 2017. Testing performed by: [address] [address] HDL 32(L) >=40 mg/dL NEEL Comment: Interpretive [...] last revised on 2017. Testing performed by: [address] [address] LDL, calculated 61 <=129 mg/dL NEEL Comment: [...] last revised on 2023. Testing performed by: [address] [address] Non-HDL Cholesterol 82 mg/dL NEEL SMITH Comment: [...] last revised on 2017. Testing performed by: [address] [address] Chol/HDL ratio 4 NEEL SMITH Comment:Testing performed by : [address] [address] Blood 10/03/2024 1:54 AM CDT 10/03/2024 2:00 AM CDT us Fred Toth MD LAB BLOOD ORDERABLES Final Res ult NEEL SMITH [address] [facility] Department [place] [address] * CT Abdomen Pelvis W Contrast (10/03/2024 [...] Aryan Jovel M.D. AR: GIOVANNA Report ID: [id number] Reading Location: [id number] Procedure Note Aryan Jovel MD - 10/03/2024 [...] Aryan Jovel M.D. AR: GIOVANNA Report ID: [id number] Reading Location: [id number] us Fred Toth MD [facility] CT PROCEDURES Final Result * (ABNORMAL) Drugs of Abuse Screen, Urine with Reflex Confirmation (10/03/2024 12:51 AM CDT) [facility] Amphetamine, ur Not Detected CutOff 500ng/mL Comment: Interpretive Data - Amphetamines: Samples containing greater than 500 ng/mL d-methamphetamine or other cross-reacting amphetamine compounds are reported as positive. Amphetamine immunoassays are subject to significant false positive rates due to cross-reactivity of non-amphetamine drugs. Confirmatory testing required for definitive results. Current Interpretive Data was last reviewed 2022. Testing performed by: [address] [address] Barbiturates, ur Not Detected CutOff 200ng/mL [facility] Comment: Interpretive Data - Barbiturates: Samples containing greater than 200 ng/mL secobarbital or other cross-reacting barbiturate compounds are reported as positive. False positive and false negative results are possible. Confirmatory testing required for definitive results. Current Interpretive Data was last reviewed 2022. Testing performed by: [address] [address] Benzodiazepines, ur Not Detected CutOff 100ng/mL [facility] Comment: Interpretive Data - Benzodiazepines: Samples containing greater than 100 ng/mL nordiazepam or other cross-reacting compounds are reported as positive. False positive and false negative results are possible. Confirmatory testing required for definitive results. Current Interpretive Data was last reviewed 2022. Testing performed by: [address] [address] Cannabinoids, ur Screen Positive, presumptive (A) CutOff 50 ng/mL [facility] Comment: Interpretive Data - Cannabinoids: Samples containing greater than 50 ng/mL delta-9 THC -COOH or other cross- reacting compounds are reported as positive. False positive and false negative results are possible. Confirmatory testing required for definitive results. Current Interpretive Data was last reviewed 2022. Testing performed by: [address] [address] Cocaine, ur Not Detected CutOff 150ng/mL [facility] Comment: Interpretive Data - Cocaine: Samples containing greater than 150 ng/mL benzoylecgonine or other cross- reacting compounds are reported as positive. False positive and false negative results are possible. Confirmatory testing required for definitive results. Current Interpretive Data was last reviewed 2022. Testing performed by: [facility], [address] [place] [address]., [address] Fentanyl, Ur Not Detected CutOff 5 ng/mL [facility] Comment: Interpretive Data - Fentanyl: Samples containing greater than 1 ng/mL fentanyl or other cross-reacting fentanyl compounds are reported as positive. False positive and false negative results are possible. Confirmatory testing required for definitive results. Current Interpretive Data was last reviewed 2022. Testing performed by: [facility], [address] [place] [address]., [address] Methadone, ur Not Detected CutOff 300ng/mL [facility] Comment: Interpretive Data - Methadone: Samples containing greater than 300 ng/mL d,l-methadone or other cross-reacting compounds are reported as positive. False positive and false negative results are possible. Confirmatory testing required for definitive results. Current Interpretive Data was last reviewed 2022. Testing performed by: [address] [address] Opiates, ur Not Detected CutOff 300ng/mL [facility] Comment: Interpretive Data - Opiates: Samples containing greater than 300 ng/mL morphine or other cross-reacting compounds are reported as positive. False positive and false negative results are possible. Confirmatory testing required for definitive results. Current Interpretive Data was last reviewed 2022. Testing performed by: [address] [address] Oxycodone, ur Not Detected CutOff 100ng/mL [facility] Comment: Interpretive Data - Oxycodone: Samples containing greater than 100 ng/mL oxycodone or other cross-reacting compounds are reported as positive. False positive and false negative results are possible. Confirmatory testing required for definitive results. Current Interpretive Data was last reviewed 2022. Testing performed by: [address] [address] Phencyclidine, ur Not Detected CutOff 25 ng/mL [facility] Comment: Interpretive Data - Phencyclidine: Samples containing greater than 25 ng/mL phencyclidine or other cross-reacting compounds are reported as positive. False positive and false negative results are possible. Confirmatory testing required for definitive results. Current Interpretive Data was last reviewed 2022. Testing performed by: [address] [address] Urine Creatinine 102 mg/dL NEEL Comment: Interpretive Data Urine Creatinine: < 10 mg/dL is extremely dilute = or > 10 but < 20 mg/dL is dilute = or > 20 mg/dL is normal Current Interpretive Data was last revised on 2017. Testing performed by: [address] [address] Urine 10/03/2024 12:5 1 AM CDT 10/03/2024 [...] LAB URINE ORDERABLES Final Res ult NEEL 384[address] [facility] Department [place] [address] * Urinalysis reflex to microscopic and culture Urine (10/02/2024 10:09 PM CDT) Color, ur Yellow Yellow Comment:Testing performed by : [address] [address] Clarity, ur Clear Clear NEEL Comment:Testing performed by : [address] [address] Specific gravity, ur 1.011 1.003 - 1.030 NEEL Comment:Testing performed by : [address] [address] pH, urine 6.0 NEEL Comment: Interpretive Data U rine pH is affected by diet, medications, systemic acid-base disturbances, and renal tubular function. pH may affect urinary stone formation. For example, urine pH below 6.0 may help reduce the tendency for calcium phosphate stones and pH greater than 6.0 may reduce the tendency for uric acid stone formation. Source: [facility] Current Interpretive Data was last revised on 2017 Testing performed by: [facility], [address] [place] [address], [place]., [address] Protein, ur ql Negative Negative NEEL Comment:Testing performed by : [facility], [address] [place] [address], [place]., [address] Glucose, ur ql Negative Negative NEEL Comment:Testing performed by : [address], [place]., [address] Ketones, ur Negative Negative NEEL Comment:Testing performed by : [address], [place]., [address] Bilirubin, ur Negative Negative NEEL Comment:Testing performed by : [address], [place]., [address] Blood, ur Negative Negative NEEL Comment:Testing performed by : [address], [place]., [address] Urobilinogen, ur <2.0 <2.0 mg/dL NEEL Comment:Testing performed by : [address], [place]., [address] Nitrite, ur Negative Negative NEEL Comment:Testing performed by : [address], [place]., [address] Leukocyte esterase, ur Negative Negative NEEL Comment:Testing performed by : [address], [place]., [address] UA reflex comment Reflex conditions for microscopic UA and culture not met. NEEL Comment:Testing performed by : [address] [address] Urine 10/02/2024 10:0 9 PM CDT 10/02/2024 10:11 PM CDT us María Elena Calvo MD LAB MICROBIOLOGY - GENERA L ORDERABLES Final Result NEEL SMITH [address] [facility] Department of Laboratories [place], [place] [id number] * eGFR (10/02/2024 9:51 PM CDT) eGFR [...] was last reviewed 2021. Testing performed by: [address] [address] Blood 10/02/2024 9:51 PM CDT 10/02/2024 9:57 PM CDT us María Elena Calvo MD LAB BLOOD ORDERABLES Renee antunez Result NEEL [address] [facility] Department [place] [address] * (ABNORMAL) Differential, auto (10/02/2024 9:51 PM CDT) Pathologist [facility] Neutrophil abs 12.91(H) 1.50 - 6.50 K/cumm Comment:Testing performed by : [address] [address] Imm gran abs 0.10 0.00 - 0.10 K/cumm NEEL Comment:Testing performed by : [address] [address] Lymphocyte abs 1.91 0.80 - 3.30 K/cumm NEEL Comment:Testing performed by : [address] [address] Monocyte abs 1.44(H) 0.20 - 0.80 K/cumm [facility] Comment:Testing performed by : [address] [address] Eosinophil abs 0.14 0.00 - 0.50 K/cumm [facility] Comment:Testing performed by : [address], [place]., [address] Basophil abs 0.07 0.00 - 0.10 K/cumm [facility] Comment:Testing performed by : [address] [address] Neutrophil pct 78.0 % [facility] Comment: Interpretive Data Percent cell count reference ranges are not reported, since discordance with absolute values may lead to misinterpretation of CBC data. Current Interpretive Data was last revised on 2017. Testing performed by: [address] [address] Imm gran pct 0.6 % [facility] Comment: Interpretive Data Percent cell count reference ranges are not reported, since discordance with absolute values may lead to misinterpretation of CBC data. Current Interpretive Data was last revised on 2017. Testing performed by: [address] [address] Lymphocyte pct 11.5 % [facility] Comment: Interpretive Data Percent cell count reference ranges are not reported, since discordance with absolute values may lead to misinterpretation of CBC data. Current Interpretive Data was last revised on 2017. Testing performed by: [address] [address] Monocyte pct 8.7 % [facility] Comment: Interpretive Data Percent cell count reference ranges are not reported, since discordance with absolute values may lead to misinterpretation of CBC data. Current Interpretive Data was last revised on 2017. Testing performed by: [address] [address] Eosinophil pct 0.8 % [facility] Comment: Interpretive Data Percent cell count reference ranges are not reported, since discordance with absolute values may lead to misinterpretation of CBC data. Current Interpretive Data was last revised on 2017. Testing performed by: [address] [address] Basophil pct 0.4 % NEEL Comment: Interpretive Data Percent cell count reference ranges are not reported, since discordance with absolute values may lead to misinterpretation of CBC data. Current Interpretive Data was last revised on 2017. Testing performed by: [address] [address] Blood 10/02/2024 9:51 PM CDT 10/02/2024 9:57 PM CDT us María Elena Calvo MD LAB BLOOD ORDERABLES Renee antunez Result [facility] [address] [facility] Department of Laboratories [place], [place] [id number] * (ABNORMAL) CBC with auto differential (10/02/2024 9:51 PM CDT) WBC 16.57(H) 3.80 - 9.90 K/cumm Comment:Testing performed by : [address] [address] Hgb 13.9 13.0 - 17.5 g/dL NEEL Comment:Testing performed by : [address] [address] Hct 41.0 38.9 - 50.3 % NEEL Comment:Testing performed by : [address] [address] Plt 281 150 - 400 K/cumm NEEL Comment:Testing performed by : [address] [address] MPV 9.9 9.1 - 12.3 fL NEEL Comment:Testing performed by : [address] [address] RBC 4.94 4.30 - 5.80 M/cumm NEEL SMITH Comment:Testing performed by : [address] [address] MCV 83.0 81.3 - 96.4 fL NEEL Comment:Testing performed by : [address] [address] MCH 28.1 27.1 - 33.3 pg NEEL SMITH Comment:Testing performed by : [address] [address] MCHC 33.9 32.3 - 35.7 g/dL NEEL SMITH Comment:Testing performed by : [address], [address] RDW CV 15.4(H) 11.1 - 14.9 % NEEL SMITH Comment:Testing performed by : [address], [address] RDW SD 46.5 35.7 - 48.1 fL NEEL Comment:Testing performed by : [address], [address] NRBC abs 0.00 0.00 - 0.01 K/cumm NEEL SMITH Comment:Testing performed by : [address], [address] Blood Venous blood specimen / Unknown 10/02/2024 9:51 PM CDT 10/02/2024 9:57 PM CDT María Elena Calvo MD LAB BLOOD ORDERABLES Renee l Result Performing Organization Address City/[facility]/ZIP Co de Phone Number [address] [email or web address] [address] * (ABNORMAL) Lipase (10/02/2024 9:51 PM CDT) Lipase 444(H) 10 - 99 Units/L Comment:Testing performed by : [address], [address] Blood Venous blood specimen / Unknown 10/02/2024 9:51 PM CDT 10/02/2024 9:57 PM CDT María Elena Calvo MD LAB BLOOD ORDERABLES Renee l Result [address] [place] [address] * Comprehensive metabolic panel (10/02/2024 9:51 PM CDT) Sodium 143 135 - 145 mmol/L Comment:Testing performed by : [address] [address] Potassium, pl 3.9 3.3 - 4.9 mmol/L [facility] Comment:Testing performed by : [address], [place]., [address] Chloride 107 97 - 110 mmol/L [facility] Comment:Testing performed by : [address], [place]., [address] CO2 22 22 - 32 mmol/L [facility] Comment:Testing performed by : [address], [place]., [address] Anion gap 14 2 - 15 mmol/L [facility] Comment:Testing performed by : [address], [place]., [address] BUN 7 6 - 25 mg/dL [facility] Comment:Testing performed by : [address], [place]., [address] Creatinine 1.08 0.80 - 1.30 mg/dL [facility] Comment:Testing performed by : [address] [address] Glucose 129 70 - 199 mg/dL [facility] Comment: [...] was last revised 2022. Testing performed by: [address] [address] Calcium 10.0 8.5 - 10.3 mg/dL [facility] Comment:Testing performed by : [address] [address] Bilirubin, total 0.3 0.1 - 1.2 mg/dL NEEL Comment:Testing performed by : [address] [address] Protein, pl 7.2 6.5 - 8.5 g/dL NEEL Comment:Testing performed by : [address] [address] Albumin 4.5 3.5 - 5.0 g/dL NEEL Comment:Testing performed by : [address] [address] Alk phos 84 40 - 130 Units/L NEEL Comment:Testing performed by : [address] [address] ALT 28 7 - 55 Units/L NEEL Comment:Testing performed by : [address] [address] AST 37 10 - 50 Units/L NEEL Comment:Testing performed by : [address] [address] Blood 10/02/2024 9:51 PM CDT 10/02/2024 9:57 PM CDT María Elena Calvo MD LAB BLOOD ORDERABLES Renee antunez Result NEEL [address] [facility] Department [place] [address] * CT Abdomen Pelvis W Contrast (09/30/2024 [...] Esa Cao M.D. AG: GONZALES Report ID: [id number] Reading Location: [id number] Procedure Note Esa Cao MD - 09/30/2024 [...] Esa Cao M.D. AG: GONZALES Report ID: [id number] Reading Location: [place] [address] [facility] PROCEDURES Final Result * (ABNORMAL) Urinalysis reflex to microscopic and culture Urine (09/30/2024 5:55 PM CDT) Color, ur Yellow Yellow Comment:Testing performed by : [address] [address] Clarity, ur Clear Clear NEEL Comment:Testing performed by : [address] [address] Specific gravity, ur 1.035(H) 1.003 - 1.030 NEEL Comment:Testing performed by : [address] [address] pH, urine 6.0 NEEL Comment: Interpretive Data U rine pH is affected by diet, medications, systemic acid-base disturbances, and renal tubular function. pH may affect urinary stone formation. For example, urine pH below 6.0 may help reduce the tendency for calcium phosphate stones and pH greater than 6.0 may reduce the tendency for uric acid stone formation. Source: [facility] Current Interpretive Data was last revised on 2017 Testing performed by: [address] [address] Protein, ur ql 1+(A) Negative NEEL Comment:Testing performed by : [address] [address] Glucose, ur ql Negative Negative NEEL Comment:Testing performed by : [address] [address] Ketones, ur 1+(A) Negative NEEL Comment:Testing performed by : [address] [address] Bilirubin, ur Negative Negative NEEL Comment:Testing performed by : [facility], [address] [place] [address], [place]., [address] Blood, ur Negative Negative NEEL Comment:Testing performed by : [facility], [address] [place] [address], [place]., [address] Urobilinogen, ur 2.0(A) <2.0 mg/dL NEEL SMITH Comment:Testing performed by : [address], [place]., [address] Nitrite, ur Negative Negative NEEL Comment:Testing performed by : [address], [place]., [address] Leukocyte esterase, ur Negative Negative NEEL Comment:Testing performed by : [address], [place]., [address] UA reflex comment Reflex to microscopic UA will be performed. NEEL Comment:Testing performed by : [address], [place]., [address] Urine 09/30/2024 5:55 PM CDT 09/30/2024 5:57 PM CDT us Radha Casas DO LAB MICROBIOLOGY - GENERAL ORDE SAMEER Final Result NEEL [address] [facility] Department [place] [address] * (ABNORMAL) Urinalysis, microscopic only (09/30/2024 5:55 PM CDT) WBC, ur 6-10(A) 0 - 5 /HPF Comment:Testing performed by : [facility] [address] [place] [address], [place]., [address] RBC, ur 3-5(A) 0 - 2 /HPF NEEL SMITH Comment:Testing performed by : [address], [place]., [address] Epithelial cells, squamous, ur 6-10(A) 0 - 5 /HPF NEEL SMITH Comment:Testing performed by : [address], [place]., [address] Mucous, ur Present(A) NEEL SMITH Comment:Testing performed by : [address] [address] Culture Reflex Comment Reflex conditions for urine culture (WBC >10) not met. NEEL Comment:Testing performed by : [address] [address] Urine 09/30/2024 5:55 PM CDT 09/30/2024 5:57 PM CDT Radha Casas DO LAB URINE ORDERABLES Final Resu lt Performing Organization Address [facility]/ZIP Co de Phone Number NEEL [address] [facility] Department [place] [address] * eGFR (09/30/2024 4:01 PM [...] was last reviewed 2021. Testing performed by: [address] [address] Blood 09/30/2024 4:01 PM CDT 09/30/2024 4:06 PM CDT Radha Casas DO LAB BLOOD ORDERABLES Final Resu lt Performing Organization Address City/[facility]/ZIP Co de Phone Number NEEL 9[address] [facility] Department [place] [address] * Differential, auto (09/30/2024 4:01 PM CDT) Neutrophil abs 5.11 1.50 - 6.50 K/cumm Comment:Testing performed by : [address] [address] Imm gran abs 0.04 0.00 - 0.10 K/cumm NEEL Comment:Testing performed by : [address] [address] Lymphocyte abs 1.62 0.80 - 3.30 K/cumm NEEL Comment:Testing performed by : [address] [address] Monocyte abs 0.77 0.20 - 0.80 K/cumm NEEL Comment:Testing performed by : [address] [address] Eosinophil abs 0.18 0.00 - 0.50 K/cumm NEEL Comment:Testing performed by : [address] [address] Basophil abs 0.05 0.00 - 0.10 K/cumm NEEL Comment:Testing performed by : [address] [address] Neutrophil pct 65.9 % NEEL Comment: Interpretive Data Percent cell count reference ranges are not reported, since discordance with absolute values may lead to misinterpretation of CBC data. Current Interpretive Data was last revised on 2017. Testing performed by: [address] [address] Imm gran pct 0.5 % NEEL Comment: Interpretive Data Percent cell count reference ranges are not reported, since discordance with absolute values may lead to misinterpretation of CBC data. Current Interpretive Data was last revised on 2017. Testing performed by: [address] [address] Lymphocyte pct 20.8 % NEEL Comment: Interpretive Data Percent cell count reference ranges are not reported, since discordance with absolute values may lead to misinterpretation of CBC data. Current Interpretive Data was last revised on 2017. Testing performed by: [address] [address] Monocyte pct 9.9 % NEEL Comment: Interpretive Data Percent cell count reference ranges are not reported, since discordance with absolute values may lead to misinterpretation of CBC data. Current Interpretive Data was last revised on 2017. Testing performed by: [address] [address] Eosinophil pct 2.3 % NEEL Comment: Interpretive Data Percent cell count reference ranges are not reported, since discordance with absolute values may lead to misinterpretation of CBC data. Current Interpretive Data was last revised on 2017. Testing performed by: [address] [address] Basophil pct 0.6 % NEEL Comment: Interpretive Data Percent cell count reference ranges are not reported, since discordance with absolute values may lead to misinterpretation of CBC data. Current Interpretive Data was last revised on 2017. Testing performed by: [address] [address] Blood 09/30/2024 4:01 PM CDT 09/30/2024 4:06 PM CDT us Radha Casas DO LAB BLOOD ORDERABLES Final Resu lt NEEL 7[address] [facility] Department [place] [address] * (ABNORMAL) CBC with auto differential (09/30/2024 4:01 PM CDT) WBC 7.77 3.80 - 9.90 K/cumm Comment:Testing performed by : [address] [address] Hgb 14.5 13.0 - 17.5 g/dL NEEL SMITH Comment:Testing performed by : [address] [address] Hct 43.0 38.9 - 50.3 % NEEL Comment:Testing performed by : [address] [address] Plt 278 150 - 400 K/cumm NEEL SMITH Comment:Testing performed by : [address] [address] MPV 9.8 9.1 - 12.3 fL NEEL SMITH Comment:Testing performed by : [address], [address] RBC 5.18 4.30 - 5.80 M/cumm NEEL SMITH Comment:Testing performed by : [address] [address] MCV 83.0 81.3 - 96.4 fL NEEL SMITH Comment:Testing performed by : [address] [address] MCH 28.0 27.1 - 33.3 pg NEEL SMITH Comment:Testing performed by : [address], [address] MCHC 33.7 32.3 - 35.7 g/dL NEEL SMITH Comment:Testing performed by : [address], [address] RDW CV 15.3(H) 11.1 - 14.9 % NEEL SMITH Comment:Testing performed by : [address] [address] RDW SD 46.4 35.7 - 48.1 fL NEEL SMITH Comment:Testing performed by : [address] [address] NRBC abs 0.00 0.00 - 0.01 K/cumm NEEL SMITH Comment:Testing performed by : [address] [address] Blood Venous blood specimen / Unknown 09/30/2024 4:01 PM CDT 09/30/2024 4:06 PM CDT us Radha Casas DO LAB BLOOD ORDERABLES Final Resu lt NEEL SMITH 60[address] [facility] Department [place] [address] * Lipase (09/30/2024 4:01 PM CDT) Lipase 51 10 - 99 Units/L Comment:Testing performed by : [address] [address] Blood Venous blood specimen / Unknown 09/30/2024 4:01 PM CDT 09/30/2024 4:06 PM CDT Radha Casas DO LAB BLOOD ORDERABLES Final Resu lt [facility] [address] [facility] Department [place] [address] * Comprehensive metabolic panel (09/30/2024 4:01 PM CDT) Sodium 141 135 - 145 mmol/L Comment:Testing performed by : [address] [address] Potassium, pl 4.0 3.3 - 4.9 mmol/L NEEL Comment:Testing performed by : [address] [address] Chloride 106 97 - 110 mmol/L NEEL Comment:Testing performed by : [address] [address] CO2 24 22 - 32 mmol/L NEEL Comment:Testing performed by : [address] [address] Anion gap 11 2 - 15 mmol/L NEEL Comment:Testing performed by : [address] [address] BUN 9 6 - 25 mg/dL NEEL Comment:Testing performed by : [address] [address] Creatinine 1.00 0.80 - 1.30 mg/dL NEEL Comment:Testing performed by : [address] [address] Glucose 107 70 - 199 mg/dL NEEL [...] was last revised 2022. Testing performed by: [address] [address] Calcium 9.6 8.5 - 10.3 mg/dL NEEL Comment:Testing performed by : [address] [address] Bilirubin, total 0.4 0.1 - 1.2 mg/dL NEEL Comment:Testing performed by : [address] [address] Protein, pl 7.1 6.5 - 8.5 g/dL NEEL Comment:Testing performed by : [address] [address] Albumin 4.3 3.5 - 5.0 g/dL NEEL Comment:Testing performed by : [address] [address] Alk phos 87 40 - 130 Units/L NEEL Comment:Testing performed by : [address] [address] ALT 25 7 - 55 Units/L ENEL Comment:Testing performed by : [address] [address] AST 25 10 - 50 Units/L NEEL Comment:Testing performed by : [address] [address] Blood 09/30/2024 4:01 PM CDT 09/30/2024 4:06 PM CDT us Radha Casas DO LAB BLOOD ORDERABLES Final Resu lt NEEL [address] [facility] Department [place] [address] from Last 3 Months Advance Directives For more information, please contact: [phone] * Full Code (Latest Code Status on [...] 12:50 PM 11/16/2023 7:54 PM Care Teams Publicity Manager Relationship Specialty Start Date End Date Td Lopez MD [address] [address] PCP - General Family Medicine 11/09/20 Angie Woodard MD [address] [facility] [address] [place] [address] Consulting Physician Gastroenterology 07/17/21 Vimal Woodruff MD [address] [facility] [address] [place] [address] Consulting Physician Gastroenterology 02/10/22
--- OUTSIDE RECORDS SUMMARY | 2024-12-06 12:25 | XMS_ITS | Clinical Summary ---
Author Organization [facility] Address [facility] [place] [address] Care Team Providers Care Synthetic Gem Press Operator Name Role Phone Td Lopez MD Primary Care Provider [phone] Allergies Active Allergy Reactions Criticality Noted Date Comments Capsaicin Other (see comment) Low 05/20/2019 Pt states it gets into his scars and causes a lot of pain Doxycycline GI Upset Low 03/29/2017 Haloperidol Other (see comment) 01/29/2022 Musculoskeletal pain Metoclopramide Myalgias 03/29/2017 Sulfa Antibiotics Myalgias,Other (see comment) Medium 03/29/2017 Reaction: neurological symptoms per patient Medications CREON 15053-825376 units CAPSULE ENTERIC COATED PARTICLES Take 36,000 [...] pain 10/18/2022 Abdominal pain 10/18/2022 Acute pancreatitis ([facility]) 09/28/2022 Renal infarct ([facility]) 09/08/2022 Marijuana use 09/04/2022 Normocytic normochromic anemia 09/04/2022 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 Manipulative behavior 07/14/2021 COVID-19 vaccine series completed 06/27/2021 Overview (09/04/2022): Moderna x2 Drug-seeking behavior 06/27/2021 History of 2019 novel coronavirus disease (COVID -19) 06/27/2021 Drug abuse and dependence ([facility]) 09/2020 Overview (09/04/2022): Last Assessment & Plan: - using mariajuana occasionally; has had frequent rx for opioids in ER - pt claims at least several days since last ER visit with narcotics given - record review suggests at least 2 wks - will check UDS Acute recurrent pancreatitis ([facility]) Other chronic pancreatitis ([facility]) Overview (09/04/2022): Last Assessment & Plan: - stable today - continue current medications - f/u with Dr Rosas as planned - encouraged pt to come to clinic instead of going to ER next time he has abdominal pain 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/2020 Hyperemesis 10/18/2019 Annual physical exam 07/15/2019 [...] Colitis 02/18/2019 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 Mild malnutrition ([facility]) 10/18/2018 Neutrophilic leukocytosis 10/18/2018 Tobacco use disorder 10/18/2018 Other chronic pancreatitis ([facility]) 02/2019 Overview (02/18/2019): Overview: Added automatically from request for surgery [id number] Chronic abdominal pain 03/30/2017 Assessment & Plan (03/30/2017 12:03 PM GLASS PRESSER): Acute on chronic, stable Patient with possible [...] Continue to advance diet as tolerated Sepsis ([facility]) 03/30/2017 Assessment & Plan (03/30/2017 12:03 PM GLASS PRESSER): Present on admission, resolved Lactic acid 2.8 [...] 03/30/2017 Assessment & Plan (03/30/2017 12:25 AM GLASS PRESSER): - established, controlled - continue home fluoxetine, nortriptyline GERD (gastroesophageal reflux disease) 7 Assessment & Plan (03/30/2017 12:25 AM GLASS PRESSER): - established, controlled - continue home nexium Hypertension 03/30/2017 Overview (03/30/2017): - established, controlled - continue home metoprolol Assessment & Plan (03/30/2017 1:01 AM GLASS PRESSER): - established, controlled - continue home metoprolol Influenza 03/30/2017 Depression 03/30/2017 Overview (02/18/2019): Overview: Last Assessment & Plan: - established, controlled - continue home fluoxetine, nortriptyline Flu 03/29/2017 Assessment & Plan (03/30/2017 12:03 PM GLASS PRESSER): Acute, influenza A + on admission, asymptomatic [...] CDT - 10/11/2024 3:20 AM CDT Emergency [facility] Emergency Room [id number] [place] [address] Clem Jones MD Abdominal Pain Discharge Disposition: [...] week 09/28/2022 How often do you attend denominational or scientologist serv ices? Never 09/28/2022 Do you belong [...] and heating? Not hard at all 10/18/2022 [facility] - [...] slept in a detention (including now)? No 10/18/2022 Sex and Gender Information Value Date Recorded Sex Assigned at Male 06/21/2024 7:21 PM GLASS PRESSER Legal Sex Male 8:10 AM CDT Gender [...] discharge from hospital Lifestyle No Sintia Zhao, director of purchasing Procedure Name Priority Date/Time Associated Diagnosis Comments ECG 12-LEAD STAT 10/11/2024 1:11 AM CDT LIPASE STAT 10/11/2024 12:51 AM CDT PROTHROMBIN TIME, VENOUS STAT 10/11/2024 12:51 AM CDT COMPREHENSIVE METABOLIC PANEL STAT 10/11/2024 12:51 AM CDT CBC W/DIFF AUTOMATED STAT 10/11/2024 12:51 AM CDT from Last 3 Months Results * ECG 12 lead (10/11/2024 1:11 AM CDT) 10/11/2024 1:11 AM CDT Narrative [facility] ([facility]) RAD - 10/17/2024 1:51 PM CDT [facility] Test Date: 2024-10-11 Pat Name: LIBERTAD BROWN Department: 85 Room: EXAM 202 Gender: Male Staking Technician: : 1980 Requested By: CLEM JONES Order Number: [id number] Reading MD: Kwadwo Dominguez Measurements Intervals [place] Rate: 72 P: 15 CO: 95 QRS: [...] Procedure Note Kwadwo Dominguez MD - 10/17/2024 [facility] Test Date: 2024-10-11 Pat Name: LIBERTDA BROWN Department: 85 Room: EXAM 202 Gender: Male Staking Technician: : 1980 Requested By: CLEM JONES Order Number: [id number] Reading MD: Kwadwo Dominguez Measurements Intervals [place] Rate: 72 P: 15 CO: 95 QRS: [...] ORDERABLES Final R esult Performing Organization Address City/[facility]/ZIP Co de Phone Number [facility]) RAD * PROTIME/INR, VENOUS (10/11/2024 12:51 AM CDT) PROTIME 10.8 9.1 - 12.4 SEC 10/11/2024 1:17 AM CDT [facility] INR 0.9 10/11/2024 1:17 AM CDT [facility] Comment: Recommend INR ranges for Oral Anticoagulant Therapy: Mechanical Cardiac Values 2.5-3.5 All others indication 2.0-3.0 10/11/2024 12:5 1 AM CDT us Clem Jones MD LABORATORY Final R esult [facility] [address] [place] [address], [place] [phone] * (ABNORMAL) COMPREHENSIVE METABOLIC PANEL (10/11/2024 12:51 AM CDT) GLUCOSE 127(H) 70 - 99 MG/DL 10/11/2024 1:26 AM [facility] BUN 6(L) 7 - 18 MG/DL 10/11/2024 1:26 AM [facility] CREATININE S/P/B 0.96 0.7 - 1.3 MG/DL 10/11/2024 1:26 AM [facility] SODIUM S/P/B 143 136 - 145 MMOL/L 10/11/2024 1:26 AM [facility] POTASSIUM S/P/B 4.2 3.5 - 5.1 MMOL/L 10/11/2024 1:26 AM [facility] CHLORIDE S/P/B 105 100 - 108 MMOL/L 10/11/2024 1:26 AM [facility] CO2 26.5 21 - 32 MMOL/L 10/11/2024 1:26 AM [facility] CALCIUM S/P/B 9.5 8.5 - 10.1 MG/DL 10/11/2024 1:26 AM [facility] BILIRUBIN TOTAL S/P/B 0.6 0.2 - 1.2 MG/DL 10/11/2024 1:26 AM [facility] TOTAL PROTEIN S/P/B 7.6 6.4 - 8.2 G/DL 10/11/2024 1:26 AM [facility] ALBUMIN S/P/B 4.2 3.4 - 5.0 G/DL 10/11/2024 1:26 AM [facility] AST 28 15 - 37 U/L 10/11/2024 1:26 AM [facility] ALT 23 16 - 60 U/L 10/11/2024 1:26 AM [facility] ALKALINE PHOSPHATASE S/P/B 81 50 - 136 U/L 10/11/2024 1:26 AM CDT [facility] ANION GAP 11.5 5 - 15 MMOL/L 10/11/2024 1:26 AM CDT [facility] BUN CREATININE RATIO 6.2 6 - 26 10/11/2024 1:26 AM CDT [facility] A/G RATIO 1.2 1.0 - 2.0 RATIO 10/11/2024 1:26 AM CDT [facility] GFR ESTIMATE >90 >90 ML/MIN/1.7 3 M2 10/11/2024 1:26 AM CDT [facility] Comment: NOTE: eGFR is [...] Clem Jones MD LABORATORY Final R esult [facility] [address] [place] [address], [place] [phone] * (ABNORMAL) CBC W/DIFF AUTOMATED (10/11/2024 12:51 AM CDT) WBC 13.90(H) 4.4 - 11.0 x10'3/uL 10/11/2024 1:26 AM CDT [facility] RBC 4.98 4.50 - 5.90 x10'6/uL 10/11/2024 1:26 AM CDT [facility] HGB 14.1 14.0 - 17.5 G/DL 10/11/2024 1:26 AM CDT [facility] HCT 42.3 41.5 - 50.4 % 10/11/2024 1:26 AM CDT [facility] MCV 84.9 80.0 - 96.0 FL 10/11/2024 1:26 AM CDT [facility] MCH 28.3 26.5 - 31.4 PG 10/11/2024 1:26 AM T [facility] MCHC 33.3 31.9 - 34.8 G/DL 10/11/2024 1:26 AM T [facility] RDW 15.4(H) 12.3 - 14.3 % 10/11/2024 1:26 AM T [facility] PLT 314 151 - 353 x10'3/uL 10/11/2024 1:26 AM T [facility] MPV 11.0 9.7 - 11.9 FL 10/11/2024 1:26 AM T [facility] RBC MORPHOLOGY NORMAL 10/11/2024 1:26 AM T [facility] PLT MORPH. NORMAL 10/11/2024 1:26 AM T [facility] WBC MORPHOLOGY NORMAL 10/11/2024 1:26 AM T [facility] LYMPHOCYTES % 7.9(L) 15.8 - 45.0 % 10/11/2024 1:26 AM CDT [facility] NEUTROPHILS % 87.4(H) 42.1 - 71.9 % 10/11/2024 1:26 AM CDT [facility] MONOCYTES % 3.8(L) 5.7 - 12.5 % 10/11/2024 1:26 AM T [facility] EOSINOPHILS 0.1 0.0 - 5.6 % 10/11/2024 1:26 AM CDT [facility] BASOPHILS 0.4 0.0 - 1.3 % 10/11/2024 1:26 AM CDT [facility] ABS. NEUTROPHILS 12.15(H) 1.40 - 6.00 x10'3/uL 10/11/2024 1:26 AM CDT [facility] IMMATURE GRANS % 0.4 0.0 - 0.5 % 10/11/2024 1:26 AM CDT [facility] ABS. LYMPHOCYTES 1.10 0.80 - 4.70 x10'3/uL 10/11/2024 1:26 AM CDT [facility] 10/11/2024 12:5 1 AM CDT Clem Jones MD LABORATORY Final R esult Performing Organization Address City/[facility]/ZIP Co de Phone Number [facility] [address] [place] [address], [place] [phone] * LIPASE (10/11/2024 12:51 AM CDT) LIPASE 36 16 - 77 UNITS/L 10/11/2024 1:26 AM CDT [facility] 10/11/2024 12:5 1 AM CDT Clem Jones MD LABORATORY Final R esult Performing Organization Address City/[facility]/ZIP Co de Phone Number [facility] [address] [place] [address], [place] [phone] from Last 3 Months Insurance AISHA Advance [...] 6:07 PM 10/19/2019 4:11 PM Care Teams Synthetic Gem Press Operator Relationship Specialty Start Date End Date Td Lopez MD PCP - General FAMILY PRACTICE 08/18/19
--- OUTSIDE RECORDS SUMMARY | 2024-12-06 12:25 | XMS_ITS | Encounter Summary ---
Author Organization [facility] Healthcare Address [address] [place] [address] Care Team Providers Care Is Technician Name Role Phone Td Lopez MD Primary Care Provider + Angie Woodard MD Unavailable [phone] Vimal Woodruff MD Unavailable PastorAlannah MA Unavailable [phone] PastorAlannah fair MA Unavailable [phone] PastorAlannah fair MA Unavailable [phone] Eun Arana RN Unavailable [phone] Lakshmi Garcia LPN Unavailable [phone] Niki Burns MA Unavailable Encounter Details Date Type Department Care Team (Late st Contact Info) Description 12/21/2017 Documentation [id number] [place] [id number] Shannan Farfan, JOHN Social History Tobacco Use Types Packs/Day Years Used Date Smoking Tobacco: Every Day Sex and Gender Information Value Date Recorded Sex Assigned at Not on file Legal Sex Male 3:38 AM FISCAL ACCOUNTING CLERK Gender Identity Not on file Sexual [...] COVID: Suspected 06/27/2021 06/27/2021 06/27/2021 12:53 PM FISCAL ACCOUNTING CLERK COVID19 06/27/2021 06/27/2021 07/08/2021 3:05 AM FISCAL ACCOUNTING CLERK COVID: Recovered Comment:Added based on recent COVID infection. 07/08/2021 07/14/2021 11/05/2021 3:05 AM C DT COVID: Suspected 05/20/2022 05/20/2022 05/20/2022 2:32 AM FISCAL ACCOUNTING CLERK COVID: Suspected 09/20/2023 09/20/2023 09/20/2023 9:26 PM CDT COVID: Suspected 10/04/2023 10/04/2023 10/04/2023 3:55 PM CDT documented as of this encounter Care Teams Is Technician Relationship Specialty Start Date End Date Td Lopez MD [facility] [address] PCP - General Family Medicine 11/09/20 Angie Woodard MD [address] [facility] [address] [place] [address] Consulting Physician Gastroenterology 07/17/21 Vimal Woodruff MD [address] [facility] [address] [place] [address] Consulting Physician Gastroenterology 02/10/22 Alannah Baumann MA [address] [facility] [address] [place] [address] ACO Care Instructional Manager 12/31/23 01/05/24 Alannah Baumann MA [address] [facility] [address] [place] [address] ACO Care Instructional Manager 06/29/24 06/30/24 Alannah Baumann MA [address] [place] [address] [address] [place] [address] ACO Care Instructional Manager 08/03/24 08/03/24 Eun Arana RN [address] [place] [address] [address] [place] [address] Health Data Analyst 08/17/24 08/25/24 Lakshmi Garcia LPN [address] [place] [address] [address] [place] [address] Health Data Analyst 10/05/24 10/05/24 Niki Burns MA [address] [place] [address] [address] [place] [address] ACO Care Instructional Manager 10/18/24 10/19/24 documented as of this encounter
--- OUTSIDE RECORDS SUMMARY | 2024-12-06 12:25 | XMS_ITS | Patient Health Record ---
Author Organization [facility] Address [address] [facility] [address] [place] [address] Care Team Providers Care Case Technician Name Role Phone John TUCKER, Td Primary Care Provider Tucker FIGUEROA MACHINE TECHNICIAN, NATALIYA Unavailable [phone] Allergies Allergen (clinical drug ingredient) Drug/Non [...] W/U Status Risk Notes Problem Chronic pancreatitis (040570690) Other chronic pancreatitis (K86.1) Active confirmed Plan Of Treatment No Information Insurance Providers Payer Name Payer Address Payer Phone Subscriber Number Group Number Insured Name Patient Relationship to Insured Coverage Start Date Coverage End Date [address] [id number] [phone] [id number] Donovan Bailey Self - patient is the insured Medical (General) History Medical History History ICD Code chronic pancreatitis cyclic vomiting hyperemesis cannabis Surgical History Surgery Date(Month/Year) cholecystectomy ERCP
--- OUTSIDE RECORDS SUMMARY | 2024-12-06 12:25 | XMS_ITS | Encounter Summary ---
Author Organization [facility] Healthcare Address [address] [place] [address] Care Team Providers Care Elocution Teacher Name Role Phone Td Lopez MD Primary Care Provider + Angie Woodard MD Unavailable [phone] Vimal Woodruff MD Unavailable [phone] PastorAlannah MA Unavailable [phone] PastorAlannah fair MA Unavailable [phone] PastorAlannah fair MA Unavailable [phone] Eun Arana RN Unavailable [phone] Lakshmi Garcia LPN Unavailable [phone] Niki Burns MA Unavailable Encounter Details Date Type Department Care Team (Late st Contact Info) Description 12/30/2023 Orders Only [facility] Health Information Management [address] [place] [address] Scanning, Provider Social History Tobacco Use Types Packs/Day Years Used Date Smoking Tobacco: Every Day Cigarettes Smokeless Tobacco: Never Alcohol Use Standard Drinks/Week Comments Not Currently 0 (1 standard drink = 0.6 oz pur e alcohol) [facility] Utilities Answer Date Recorded In the past 12 months has [employer] electric, gas, oil, or water company threatened [...] often do you attend chur ch or yarsanism services? Never 09/21/2023 Do you belong to any clubs o r organizations such as buddhist groups, unions, fraternal or athletic groups, or [...] place to sleep or slept in a long term (including now)? No 09/21/2023 Personal Safety Answer Date Recorded Have you ever been in or are you currently in a harmful physical or emotional relationship or is someone making you feel afraid or unsafe? 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 Gender Identity Not on file Sexual Orientation [...] on filedocumented in this encounter Care Teams Elocution Teacher Relationship Specialty Start Date End Date Td Lopez MD [address] [address] PCP - General Family Medicine 11/09/20 Angie Woodard MD [address] [facility] [address] [place] [address] Consulting Physician Gastroenterology 07/17/21 Vimal Woodruff MD [address] [facility] [address] [place] [address] Consulting Physician Gastroenterology 02/10/22 Alannah Baumann MA [address] [place] [address] [address] [place] [address] ACO Care Electric Spot Welder 12/31/23 01/05/24 Alannah Baumann MA [address] [place] [address] [address] [place] [address] ACO Care Electric Spot Welder 06/29/24 06/30/24 Alannah Baumann MA [address] [place] [address] [address] [place] [address] ACO Care Electric Spot Welder 08/03/24 08/03/24 Eun Arana, RN [address] [place] [address] [address] [place] [address] Snowsport Instructor 08/17/24 08/25/24 Lakshmi Garcia LPN [address] [place] [address] [address] [place] [address] Snowsport Instructor 10/05/24 10/05/24 Niki Burns MA [address] [place] [address] [address] [place] [address] ACO Care Electric Spot Welder 10/18/24 10/19/24 documented as of this encounter
--- OUTSIDE RECORDS SUMMARY | 2024-12-06 12:25 | XMS_ITS | Clinical Summary ---
Author Organization [facility] Address [address] [facility] [place] [address] Care Team Providers Care Plasma Center Technician Name Role Phone Alee Zhao MD Primary Care Provider [phone] Source Comments [facility],non-owned Affiliates and Associated Physician Practices is amultiple site organization consisting of ambulatory clinics and hospital sitesin [place], [place], [place] and [place]. This disclosure is being madepursuant to the Care Everywhere program and may not contain all information available regarding this patient. Last updated 18.[facility] Allergies Active Allergy Reactions Criticality Noted Date [...] on file Legal Sex Male 7:46 PM MANUFACTURING LAB TECHNICIAN Gender Identity Not on file Sexual Orientation Not on file Last Filed Vital Signs Vital Sign Reading Time Taken Comments Blood Pressure 120/71 03/17/2019 5:03 PM MANUFACTURING LAB TECHNICIAN Pulse 75 03/17/2019 5:03 PM MANUFACTURING LAB TECHNICIAN Temperature 36.9 C (98.4 F) 03/17/2019 2:00 PM MANUFACTURING LAB TECHNICIAN Respiratory Rate 17 03/17/2019 5:03 PM MANUFACTURING LAB TECHNICIAN Oxygen Saturation 99% 03/17/2019 5:03 PM MANUFACTURING LAB TECHNICIAN Inhaled Oxygen Concentration - - Weight 77.1 kg (170 lb) 03/17/2019 2:00 PM MANUFACTURING LAB TECHNICIAN Height 177.8 cm (5' 10) 03/17/2019 2:00 PM MANUFACTURING LAB TECHNICIAN Body Mass Index 24.39 03/17/2019 2:00 PM MANUFACTURING LAB TECHNICIAN Plan of Treatment Health Maintenance Due [...] RFLX NAAT QUANT STAT 03/27/2018 9:12 PM MANUFACTURING LAB TECHNICIAN HIV-1 HIV-2 ANTIGEN/ANTIBODY STAT 03/27/2018 9:12 PM MANUFACTURING LAB TECHNICIAN from Last 3 Months or Most Recently Relevant to Health Maintenance Results * HIV-1 HIV-2 ANTIGEN/ANTIBODY (03/27/2018 9:12 PM MANUFACTURING LAB TECHNICIAN) HIV Antigen/Antibod y 1 & 2 Non-reacti ve Non-react nemesio 03/27/2018 10:17 PM MANUFACTURING LAB TECHNICIAN [facility] Comment: Neither HIV-1 p24 Antigen nor HIV-1/HIV-2 Antibodies are detected. Blood BLOOD SPECIMEN / Unknown Venipuncture / Unknown 03/27/2018 9:12 PM MANUFACTURING LAB TECHNICIAN 03/27/2018 9:21 PM MANUFACTURING LAB TECHNICIAN us Davi Patrick MD LAB - HEMATOLOGY ORDERABLES Fi nal Result Performing Organization Address [facility] Co de Phone Number [address] [phone] * HEPATITIS C AB SCREEN RFLX NAAT QUANT (03/27/2018 9:12 PM MANUFACTURING LAB TECHNICIAN) Hepatitis C Antibody Non-react nemesio Non-reac tive 03/27/2018 10:20 PM MANUFACTURING LAB TECHNICIAN [facility] Comment: Hepatitis C Antibody screen indicates no serologic evidence of past or current infection with Hepatitis C Virus. Patients with unexplained liver disease who are immunocompromised or suspected of having acute Hepatitis C infection may benefit from Nucleic Acid Test (RINKU) for Hepatitis C Viral RNA to confirm Hepatitis C status. Blood BLOOD SPECIMEN / Unknown Venipuncture / Unknown 03/27/2018 9:12 PM MANUFACTURING LAB TECHNICIAN 03/27/2018 9:21 PM MANUFACTURING LAB TECHNICIAN us Davi Patrick MD LAB - CHEMISTRY ORDERABLES Fin al Result Performing Organization Address [facility] Co de Phone Number [address] [phone] from Last 3 Months or Most Recently Relevant to Health Maintenance Insurance [facility] Care Teams Plasma Center Technician Relationship Specialty Start Date End Date Alee Zhao MD [address] [place] [phone] PCP - General Family Medicine 03/25/18
--- OUTSIDE RECORDS SUMMARY | 2024-12-06 12:25 | XMS_ITS ---
Author Organization [facility] Address [address] [place] [address] Care Team Providers Care Restaurant Culinary Manager Name Role Phone John TUCKER, Td Primary Care Provider Tucker FIGUEROA NP, NATALIYA Porras REASON FOR VISIT FU ER Visit Encounters Encounter Location Date Provider Diagnosis [facility] [address] [place] [address] 02/29/2024 NATALIYA FIGUEROA Plan Of Treatment No Information Progress Notes * Donovan BROWN MDOB: 2 (44 yo M)Acc No.[id number]:02/29/2024 Progress Notes Patient: Donovan HASSAN Appointment Provider: Enrrique Figueroa CNP :1980 A ge:43 Y S ex:Male Date:02/29/2024 [address] [facility] Pcp:Td Lopez MD Subjective: * Chief Complaints: * 1 . FU ER Visit. * Medical History: Objective: * Vitals: Assessment: Plan: * Treatment: * * Electronic signature of AMANDA FIGUEROA NP, MSN RADIOLOGICAL ENGINEER-BC on 12/06/2024 at 01:24 PM EDT Sign off status: Pending * Appointment Provider: Enrrique Figueroa CNP Date: 1 Generated for Printing/Faxing/eTransmitting on: 0 12/06/2024 01:24 PM EDT
--- OUTSIDE RECORDS SUMMARY | 2024-12-06 12:25 | XMS_ITS ---
Author Organization [facility] Address [address] [place] [address] Care Team Providers Care Washing Machine Installer Name Role Phone John TUCKER, Td Primary Care Provider Unavaila jenny FIGUEROA SAFE TECHNICIAN, NATALIYA Unavailable [phone] IFRAH TUCKER, BRODERICK Unavailable REASON FOR VISIT ERCP stent pull INPT Encounters Encounter Location Date Provider Diagnosis [facility] - Op [address] [facility] Sched[address] [place], [place] [id number] 09/23/2023 BRODERICKNICKY RG Plan Of Treatment No Information Progress Notes * Donovan BROWN MDOB: 2 (44 yo M)Acc No.[id number]:09/23/2023 Patient: Donovan HASSAN Gaby Provider: William Rg MD, FASGE :1980 A ge:43 Y S ex:Male Date:09/23/2023 Address:[address] [id number] Pcp:Td Lopez MD * * Electronic signature of ROSETTE RG MD, MD on 12/06/2024 at 01:24 PM EDT Sign off status: Pending * Provider: William Rg MD, FASGE Date: 0 09/23/2023 Generated for Printi ng/Faxing/eTransmitting on: 0 12/06/2024 01:24 PM EDT
--- OUTSIDE RECORDS SUMMARY | 2024-12-06 12:25 | XMS_ITS | Clinical Summary ---
Author Organization [facility] Address [address] [place] [id number] Phone Care Team Providers Care Choke Setter Name Role Phone Unavailable Primary Care [...] on file Legal Sex Male 7:38 PM CONCRETE PLACEMENT EQUIPMENT OPERATOR Gender Identity Not on file Sexual Orientation Not on file Last Filed Vital Signs Vital Sign Reading Time Taken Comments Blood Pressure 119/84 07/11/2022 2:03 AM CONCRETE PLACEMENT EQUIPMENT OPERATOR Pulse 80 07/11/2022 2:03 AM CONCRETE PLACEMENT EQUIPMENT OPERATOR Temperature 36.3 C (97.4 F) 07/11/2022 2:03 AM CONCRETE PLACEMENT EQUIPMENT OPERATOR Respiratory Rate 18 07/11/2022 2:03 AM CONCRETE PLACEMENT EQUIPMENT OPERATOR Oxygen Saturation 97% 07/11/2022 2:03 AM CONCRETE PLACEMENT EQUIPMENT OPERATOR Inhaled Oxygen Concentration - - Weight 79.4 kg (175 lb) 07/10/2022 8:06 PM CONCRETE PLACEMENT EQUIPMENT OPERATOR Height 177.8 cm (5' 10) 07/10/2022 8:06 PM CONCRETE PLACEMENT EQUIPMENT OPERATOR Body Mass Index 25.11 07/10/2022 8:06 PM CONCRETE PLACEMENT EQUIPMENT OPERATOR Plan of Treatment Health Maintenance Due Date Last Done Comments HPV VACCINES (1 - Male 3-dos e series) 1996 HEPATITIS B VACCINES (1 of 3 - 19+ 3-dose series) 2000 COVID-19 Vaccine (4 - 2023-2 5 season) 2024 10/29/2021, 11/02/2020, 10/05/2020 INFLUENZA VACCINE (#1) 2024 , 02/29/2020, 02/09/2018 DTAP/TDAP/TD VACCINES (2 - T d or Tdap) 10/30/2031 10/29/2021 [place] [address] [employer] MEDICAID MEDICAID [place]
[2024-12-06 12:27] VITALS: BP 170/116; PULSE 89; RESP 18; TEMP 36.6; O2SAT 99
[2024-12-06 13:12] LABS: Hematocrit 48.0 % (42.0-52.0); Hemoglobin 16.0 g/dL (14.0-18.0); Immature Granulocyte Percent A 0.5 % (0-0.5); Lymphocytes Absolute Auto 1.77 K/mm3 (0.9-3.2); Mean Corpuscular HGB Conc 33.3 g/dl (32-36); Mean Corpuscular Hemoglobin 29.0 pg (26-34); Mean Corpuscular Volume 87.1 fl (80-100); Nucleated Red Blood Cells Absolute Auto 0.000 K/mm3 (0.0-0.012); Nucleated Red Blood Cells Perc 0.0 % (0.0-0.2); Platelet Count Result 292 k/mm3 (150-375); Red Blood Count 5.51 M/mm3 (4.6-6.20); White Blood Count 16.9 K/mm3 (4.5-10.0)
[2024-12-06 13:38] LABS: Alanine Aminotransferase 32 U/L (6-50); Albumin Level 4.7 g/dL (3.5-5.1); Alkaline Phosphatase 94 U/L (38-126); Anion Gap 10 mmol/L (4-12); Aspartate Amino Transferase 29 U/L (17-59); Bilirubin,Total 0.6 mg/dL (0.2-1.3); Blood Urea Nitrogen 8 mg/dL (9-20); Calcium 9.9 mg/dL (8.4-10.2); Carbon Dioxide 24 mmol/L (22-30); Chloride 104 mmol/L (98-107); Estimated CRCL calculation 82 ml/min; Estimated Glomerular Filt Rate > 60; Glucose 122 mg/dL (65-110); Lipase 168 U/L (23-300); Potassium 4.0 mmol/L (3.4-5.0); Sodium 138 mmol/L (137-145); Total Protein 7.8 g/dL (6.3-8.2)
[2024-12-06 14:39] VITALS: BP 127/94; PULSE 95; TEMP 36.4; O2SAT 98
--- NOTE | 2024-12-06 15:09 | ED_ITS ---
HPI - Abdominal Pain General Chief Complaint: Abdominal Pain <Laura Mcmanus PA-C - Last Filed: 12/06/24 15:12> Stated Complaint: abd pain <Laura Mcmanus PA-C - Last Filed: 12/06/24 15:12> Time Seen by Provider: 12/06/24 15:21 <Laura Mcmanus PA-C - Last Filed: 12/06/24 15:12> Focused HPI: 44 y/o M with a hx of chronic abdominal pain, pancreatitis, cholecystectomy presents to the emergency department for epigastric abdominal pain that started at 9:00 a.m. after eating a bagel and ensure. Patient states he was discharged from [facility] recently after hospitalized for 4 nights for enteritis. States he was doing better until he ate a bagel and ensure this morning. He reports associated nausea and vomiting. Patient has been seen in our ED several times for the same presentation. GENERAL: Well-appearing, well-nourished, and in no acute distress. HEAD: Normocephalic, atraumatic. CHEST: Clear to auscultation. ?No respiratory distress. ABD: Abdomen soft with tenderness in the epigastrium. No rebound or rigidity. HEART: Regular rate and rhythm.? NEURO: ?Alert and oriented x3. Patient screened in triage and initial orders placed.? ?Additional care and disposition to be based upon?diagnostic testing and treatment. <Laura Mcmanus PA-C - Last Filed: 12/06/24 15:12> History of Present Illness HPI narrative: Agree with HPI <Freddy Rogers MD - Last Filed: 12/06/24 17:08> Related Data Home Medications: Home Medications ?Medication ?Instructions ?Recorded ?Confirmed ?Last Taken ?Type apixaban 5 mg tablet (Eliquis) 5 mg PO BID 04/05/23 04/05/23 Unknown History dicyclomine 20 mg tablet 20 mg PO BID 04/05/23 04/05/23 Unknown History <Laura Mcmanus PA-C - Last Filed: 12/06/24 15:12> Allergies/Adverse Reactions: Allergies Allergy/AdvReac Type Severity Reaction Status Date / Time metoclopramide Allergy Unknown Muscle Verified 11/29/24 02:07 Spasms haloperidol (From Haldol) AdvReac Mild Muscle Verified 11/29/24 02:07 Spasms doxycycline AdvReac Unknown Gastrointestinal Verified 11/29/24 02:07 Upset sulfamethoxazole AdvReac Unknown Gastrointestinal Verified 11/29/24 02:07 Upset trimethoprim AdvReac Unknown Gastrointestinal Verified 11/29/24 02:07 Upset prochlorperazine (From AdvReac Muscle Verified 11/29/24 02:07 Compazine) Spasms Sulfa (Sulfonamide AdvReac Gastrointestinal Verified 11/29/24 02:07 Antibiotics) Upset <Laura Mcmanus PA-C - Last Filed: 12/06/24 15:12> Review of Systems 2 Review of Systems: All systems reviewed & are unremarkable except as noted in HPI and below <Freddy Rogers MD - Last Filed: 12/06/24 17:08> Constitutional: Constitutional: Reports no additional constitutional complaints <Freddy Rogers MD - Last Filed: 12/06/24 17:08> Cardiovascular: Cardiovascular: Reports no additional cardiovascular complaints <Freddy Rogers MD - Last Filed: 12/06/24 17:08> Respiratory: Respiratory: Reports no additional respiratory complaints < Freddy Rogers MD - Last Filed: 12/06/24 17:08> Gastrointestinal: Gastrointestinal: Reports no additional gastrointestinal complaints <Freddy Rogers MD - Last Filed: 12/06/24 17:08> Genitourinary: Genitourinary: Reports no additional male genitourinary complaints <Freddy Rogers MD - Last Filed: 12/06/24 17:08> [facility] Past Medical History Medical History: Medical History Kidney infarction Chronic pancreatitis Cyclical vomiting Anxiety Depression Kidney stones Hypertension GERD (gastroesophageal reflux disease) Cyclic vomiting syndrome IBD (inflammatory bowel disease) Gastroenteritis Pancreatitis Colitis <Laura Mcmanus PA-C - Last Filed: 12/06/24 15:12> Surgical History Surgical History: Surgical History Hx of cholecystectomy <Laura Mcmanus PA-C - Last Filed: 12/06/24 15:12> Family History Family History: Family History Grandparent Acute myocardial infarction <Laura Mcmanus PA-C - Last Filed: 12/06/24 15:12> Social History Social History: Social History Smoking packs per day: 1 Smoking cigarettes per day: 20.0 Years smoked: 20 Smoking pack-years: 20.00 Smoking status: Current every day smoker Tobacco type: cigarettes Alcohol intake: current Drinks per week: 3 Substance use: current Substance use type: marijuana Last use: PROBABLY ABOUT A WEEK AGOago Lack of Transportation: No Lack of Food: Never True Current Housing: I Have Housing Concerned About Future Housing: No Difficulty Paying Gas/Electric Bills: No Difficulty Paying for Meds: No Currently Unemployed: No Education: High School Diploma/GED Difficulty w/ Childcare or Family Care: No Living arrangements: alone Gender identity (if verbalized by the patient): Male Sexual Orientation (if Verbalized by the Patient): Straight or Heterosexual Spiritual care concerns: No <Laura Mcmanus PA-C - Last Filed: 12/06/24 15:12> Exam 2 Narrative: GENERAL: Well-appearing, well-nourished, and in no acute distress. HEAD: Normocephalic, atraumatic. ENT: Mucous membranes moist. CHEST: Clear to auscultation. No respiratory distress. HEART: Regular rate and rhythm. Normal peripheral pulses. ABDOMEN: Soft, mild epigastric discomfort, nondistended. EXTREMITIES: Normal range of motion. No edema. SKIN: Warm, dry, no rash. NEURO: Alert and oriented x3. PSYCH: Normal mood and affect. <Freddy Rogers MD - Last Filed: 12/06/24 17:08> Course Course Emergency Course: Patient informed of results. Esophagitis and colitis on CT. Discharge with Augmentin and PPI. <Freddy Rogers MD - Last Filed: 12/06/24 17:08> Vital Signs Vital signs: Vital Signs Temperature 98 F 12/06/24 12:27 Pulse Rate 89 12/06/24 12:27 Respiratory Rate 18 12/06/24 12:27 Blood Pressure 170/116 H 12/06/24 12:27 Pulse Oximetry 99 12/06/24 12:27 Oxygen Delivery Room Air 12/06/24 12:27 Temperature 97.5 F L 12/06/24 14:39 Pulse Rate 95 12/06/24 14:39 Respiratory Rate 18 12/06/24 12:27 Blood Pressure 127/94 H 12/06/24 14:39 Pulse Oximetry 98 12/06/24 14:39 Oxygen Delivery Room Air 12/06/24 12:27 <Laura Mcmanus PA-C - Last Filed: 12/06/24 15:12> Vital Signs Temperature 98 F 12/06/24 12:27 Pulse Rate 89 12/06/24 12:27 Respiratory Rate 18 12/06/24 12:27 Blood Pressure 170/116 H 12/06/24 12:27 Pulse Oximetry 99 12/06/24 12:27 Oxygen Delivery Room Air 12/06/24 12:27 Temperature 97.5 F L 12/06/24 14:39 Pulse Rate 95 12/06/24 14:39 Respiratory Rate 18 12/06/24 12:27 Blood Pressure 127/94 H 12/06/24 14:39 Pulse Oximetry 98 12/06/24 14:39 Oxygen Delivery Room Air 12/06/24 12:27 <Freddy Rogers MD - Last Filed: 12/06/24 17:08> MDM - Abdominal Pain Lab Data Result diagrams: 12/06/24 12:59 12/06/24 12:59 <Laura Mcmanus PA-C - Last Filed: 12/06/24 15:12> Labs: Lab Results 12/06/24 12/06/24 Range/Units 12:59 15:42 WBC 16.9 H (4.5-10.0) K/mm3 RBC 5.51 (4.6-6.20) M/mm3 Hgb 16.0 (14.0-18.0) g/dL Hct 48.0 (42.0-52.0) % MCV 87.1 (80-100) fl MCH 29.0 (26-34) pg MCHC 33.3 (32-36) g/dl RDW 15.9 H (11.5-14.5) % Plt Count 292 (150-375) k/mm3 MPV 10.0 (7.4-10.4) fl Immature Gran % (Auto) 0.5 (0-0.5) % Neut % (Auto) 80.7 H (45.5-73.1) % Lymph % (Auto) 10.5 L (18.3-44.2) % [place] % (Auto) 7.3 (2.6-8.5) % Eos % (Auto) 0.7 (0-4.4) % Baso % (Auto) 0.3 (0.2-1.2) % Lymph # (Auto) 1.77 (0.9-3.2) K/mm3 [place] # (Auto) 1.2 H (0.1-0.6) K/mm3 Eos # (Auto) 0.1 (0-0.3) K/mm3 Baso # (Auto) 0.1 (0.0-0.1) K/mm3 Abs Immat Gran (auto) 0.08 H (0.00-0.031) K/mm3 Absolute Neuts (auto) 13.7 H (1.3-6.7) K/mm3 Absolute Nucleated RBC 0.000 (0.0-0.012) K/mm3 Nucleated RBC % 0.0 (0.0-0.2) % Sodium 138 (137-145) mmol/L Potassium 4.0 (3.4-5.0) mmol/L Chloride 104 (98-107) mmol/L Carbon Dioxide 24 (22-30) mmol/L Anion Gap 10 (4-12) mmol/L BUN 8 L (9-20) mg/dL Creatinine 1.01 (0.7-1.3) mg/dL Estim Creat Clear Calc 82 ml/min Estimated GFR > 60 (59 - ) Glucose 122 H (65-110) mg/dL Calcium 9.9 (8.4-10.2) mg/dL Total Bilirubin 0.6 (0.2-1.3) mg/dL AST 29 (17-59) U/L ALT 32 (6-50) U/L Alkaline Phosphatase 94 (38-126) U/L Total Protein 7.8 (6.3-8.2) g/dL Albumin 4.7 (3.5-5.1) g/dL Lipase 168 (23-300) U/L Urine Color Yellow (Yellow) Urine Appearance Turbid H (Clear) Urine pH >=9.0 H (5.0-9.0) Ur Specific [place] 1.022 (1.001-1.035) Urine Protein 1+ H (Negative) mg/dL Urine Glucose (UA) Negative (Negative) mg/dL Urine Ketones 1+ H (Negative) mg/dL Ur Blood (Man) Negative (Negative) Urine Nitrate Negative (Negative) Urine Bilirubin Negative (Negative) Urine Urobilinogen 1.0 (<2.0) mg/dL Leukocyte Esterase Rfl Trace H (Negative) CHRIS/UL Urine RBC 0-2 (0-2) /hpf Urine WBC 0-5 (0-3) /hpf Ur Squamous Epith Cells None seen (Few) /hpf Urine Bacteria None seen /hpf Urine Casts 0-2 Urine Opiates Screen Negative (Negative) Urine Methadone Screen Negative (Negative) Ur Barbiturates Screen Negative (Negative) Ur Phencyclidine Scrn Negative (Negative) Ur Amphetamine Screen Negative (Negative) U Benzodiazepines Scrn Negative (Negative) Urine Cocaine Screen Negative (Negative) U Cannabinoids Screen Positive A (Negative) <Laura Mcmanus PA-C - Last Filed: 12/06/24 15:12> Lab Results 12/06/24 12/06/24 Range/Units 12:59 15:42 WBC 16.9 H (4.5-10.0) K/mm3 RBC 5.51 (4.6-6.20) M/mm3 Hgb 16.0 (14.0-18.0) g/dL Hct 48.0 (42.0-52.0) % MCV 87.1 (80-100) fl MCH 29.0 (26-34) pg MCHC 33.3 (32-36) g/dl RDW 15.9 H (11.5-14.5) % Plt Count 292 (150-375) k/mm3 MPV 10.0 (7.4-10.4) fl Immature Gran % (Auto) 0.5 (0-0.5) % Neut % (Auto) 80.7 H (45.5-73.1) % Lymph % (Auto) 10.5 L (18.3-44.2) % [place] % (Auto) 7.3 (2.6-8.5) % Eos % (Auto) 0.7 (0-4.4) % Baso % (Auto) 0.3 (0.2-1.2) % Lymph # (Auto) 1.77 (0.9-3.2) K/mm3 [place] # (Auto) 1.2 H (0.1-0.6) K/mm3 Eos # (Auto) 0.1 (0-0.3) K/mm3 Baso # (Auto) 0.1 (0.0-0.1) K/mm3 Abs Immat Gran (auto) 0.08 H (0.00-0.031) K/mm3 Absolute Neuts (auto) 13.7 H (1.3-6.7) K/mm3 Absolute Nucleated RBC 0.000 (0.0-0.012) K/mm3 Nucleated RBC % 0.0 (0.0-0.2) % Sodium 138 (137-145) mmol/L Potassium 4.0 (3.4-5.0) mmol/L Chloride 104 (98-107) mmol/L Carbon Dioxide 24 (22-30) mmol/L Anion Gap 10 (4-12) mmol/L BUN 8 L (9-20) mg/dL Creatinine 1.01 (0.7-1.3) mg/dL Estim Creat Clear Calc 82 ml/min Estimated GFR > 60 (59 - ) Glucose 122 H (65-110) mg/dL Calcium 9.9 (8.4-10.2) mg/dL Total Bilirubin 0.6 (0.2-1.3) mg/dL AST 29 (17-59) U/L ALT 32 (6-50) U/L Alkaline Phosphatase 94 (38-126) U/L Total Protein 7.8 (6.3-8.2) g/dL Albumin 4.7 (3.5-5.1) g/dL Lipase 168 (23-300) U/L Urine Color Yellow (Yellow) Urine Appearance Turbid H (Clear) Urine pH >=9.0 H (5.0-9.0) Ur Specific [place] 1.022 (1.001-1.035) Urine Protein 1+ H (Negative) mg/dL Urine Glucose (UA) Negative (Negative) mg/dL Urine Ketones 1+ H (Negative) mg/dL Ur Blood (Man) Negative (Negative) Urine Nitrate Negative (Negative) Urine Bilirubin Negative (Negative) Urine Urobilinogen 1.0 (<2.0) mg/dL Leukocyte Esterase Rfl Trace H (Negative) CHRIS/UL Urine RBC 0-2 (0-2) /hpf Urine WBC 0-5 (0-3) /hpf Ur Squamous Epith Cells None seen (Few) /hpf Urine Bacteria None seen /hpf Urine Casts 0-2 Urine Opiates Screen Negative (Negative) Urine Methadone Screen Negative (Negative) Ur Barbiturates Screen Negative (Negative) Ur Phencyclidine Scrn Negative (Negative) Ur Amphetamine Screen Negative (Negative) U Benzodiazepines Scrn Negative (Negative) Urine Cocaine Screen Negative (Negative) U Cannabinoids Screen Positive A (Negative) <Freddy Rogers MD - Last Filed: 12/06/24 17:08> Imaging Data Radiologist's impression: ITS Impressions Abdomen/Pelvis CT 12/06/24 16:16 IMPRESSION: Mild esophagitis/gastritis. Hepatic steatosis. Ascending and transverse colonic wall edema, may reflect colitis. Urinary bladder wall thickening, may be secondary to distention or cystitis. <Laura Mcmanus PA-C - Last Filed: 12/06/24 15:12> ITS Impressions Abdomen/Pelvis CT 12/06/24 16:16 IMPRESSION: Mild esophagitis/gastritis. Hepatic steatosis. Ascending and transverse colonic wall edema, may reflect colitis. Urinary bladder wall thickening, may be secondary to distention or cystitis. <Freddy Rogers MD - Last Filed: 12/06/24 17:08> Discharge Plan Discharge Clinical Impression: Esophagitis, Colitis <Laura Mcmanus PA-C - Last Filed: 12/06/24 15:12> Patient Disposition: Home <Laura Mcmanus PA-C - Last Filed: 12/06/24 15:12> Condition: Stable <Laura Mcmanus PA-C - Last Filed: 12/06/24 15:12> Instructions: Colitis (ED), Esophagitis (ED) <Laura Mcmanus PA-C - Last Filed: 12/06/24 15:12> Additional Instructions: Return to the emergency department if you develop severe abdominal pain, severe nausea and vomiting to the point where you are unable to keep down fluids, if you develop chest pain or difficulty breathing, blood in your stool, dizziness or fainting, or if you develop any other new or concerning symptoms as these could be signs of more serious medical illness. Try to stay well hydrated. <Laura Mcmanus PA-C - Last Filed: 12/06/24 15:12> Patient Language: Pashto <JORDI Baptiste Last Filed: 12/06/24 15:12> Prescriptions: New amoxicillin-pot clavulanate 875-125 mg tablet 1 tablet PO Q12H Qty: 14 0RF pantoprazole 40 mg tablet,delayed release (DR/EC) 40 mg PO HS Qty: 14 0RF No Action omeprazole 20 mg capsule,delayed release(DR/EC) 20 mg PO DAILY Qty: 14 0RF ondansetron 4 mg tablet,disintegrating 4 mg PO Q8H PRN (Reason: nausea and vomiting) Qty: 14 0RF dicyclomine 20 mg tablet 20 mg PO QID Qty: 20 0RF promethazine 25 mg tablet 25 mg PO Q6H PRN (Reason: nausea and vomiting) Qty: 20 0RF ondansetron 4 mg tablet,disintegrating 4 mg PO Q8H PRN (Reason: nausea and vomiting) Qty: 10 0RF hyoscyamine sulfate [Levsin] 0.125 mg tablet 0.125 mg PO QID Qty: 14 0RF ondansetron 4 mg tablet,disintegrating 4 mg PO Q6H PRN (Reason: nausea and vomiting) Qty: 10 0RF alum-mag hydroxide-simeth [Maalox Advanced] 200-200-20 mg/5 mL suspension 10 ml PO QID PRN (Reason: dyspepsia) Qty: 300 0RF Rx Instructions: administer between meals and at bedtime ondansetron 4 mg tablet,disintegrating 4 mg PO Q8H PRN (Reason: nausea and vomiting) Qty: 10 0RF dicyclomine 20 mg Tablet 20 mg PO BID Patient Comments: HAVE NOT HAD A DOSE. UNABLE TO OBTAIN FROM HIS PHARMACY Eliquis 5 mg Tablet 5 mg PO BID dicyclomine 20 mg tablet 20 mg PO BID Qty: 30 0RF famotidine [Pepcid] 20 mg tablet 20 mg PO BID 42 Days Qty: 84 0RF ondansetron 4 mg tablet,disintegrating 4 mg PO Q8H PRN (Reason: nausea and vomiting) Qty: 10 0RF dicyclomine 20 mg tablet 20 mg PO TID PRN (Reason: abdominal pain) Qty: 20 0RF <Laura Mcmanus PA-C - Last Filed: 12/06/24 15:12> Follow-up/Referrals: John,Td Lewis MD [Primary Care Provider] - 1 Week <Laura Mcmanus PA-C - Last Filed: 12/06/24 15:12>
--- OUTSIDE RECORDS SUMMARY | 2024-12-06 15:50 | XMS_ITS | Clinical Summary ---
Author Organization [facility] Address [address] [place] [address] Care Team Providers Care Laborer Electroplating Name Role Phone Td Lopez MD Primary Care Provider + Angie Woodard MD Unavailable [phone] Vimal Woodruff MD Unavailable [phone] Allergies Active Allergy Reactions Criticality Noted Date [...] 03/25/2024 Assessment & Plan (03/25/2024 11:50 AM GAS METER REPAIRER): - suspect just muscle strain - will check xray - offered PT but pt refused. Protein-calorie malnutrition, moderate 4 Abdominal pain, generalized 09/19/2023 Assessment & Plan (09/25/2023 12:23 PM CDT): - improving - will give small amount of norco until pt heals from his procedure - f/u with GI Current use of superintendent terminal anticoagulation 023 Assessment & Plan (09/25/2023 12:23 PM CDT): - stable - continue eliquis Assessment & Plan (03/20/2023 11:08 AM GAS METER REPAIRER): - restart eliquis due to life long need for anticoagulation History of thrombosis 03/20/2023 Assessment & Plan (09/25/2023 12:22 PM CDT): - stable - continue eliquis Assessment & Plan (03/20/2023 11:08 AM GAS METER REPAIRER): - restart eliquis due to life long [...] famotidine Assessment & Plan (03/20/2023 11:08 AM GAS METER REPAIRER): - stable - continue current medication Renal [...] eval. Assessment & Plan (03/25/2024 11:49 AM GAS METER REPAIRER): - ref to derm for eval Drug [...] pain Assessment & Plan (03/25/2024 11:49 AM GAS METER REPAIRER): - poor control - continue hyosciamine, famotidine, zofran - ref to GI for continued treatment Assessment & Plan (03/20/2023 11:07 AM GAS METER REPAIRER): - stable - continue current medication Duodenal [...] prn Assessment & Plan (07/15/2019 11:44 AM GAS METER REPAIRER): - stable - continue bentyl and amitriptyline [...] medication Assessment & Plan (07/15/2019 11:44 AM GAS METER REPAIRER): - stable - continue creon Annual physical [...] able Assessment & Plan (07/15/2019 11:46 AM GAS METER REPAIRER): - encourage healthy diet, exercise - check labs - encouraged quitting smoking Enteritis 02/18/2019 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 Assessment & Plan (07/15/2019 11:37 AM GAS METER REPAIRER): - encouraged pt to quit smoking Abdominal [...] GI Assessment & Plan (03/20/2023 11:07 AM GAS METER REPAIRER): - stable - continue current medication per [...] 09/17/202209/08 Assessment & Plan (03/20/2023 11:08 AM GAS METER REPAIRER): - stable off meds - will monitor [...] 09/25/2023 Assessment & Plan (03/26/2021 11:41 AM GAS METER REPAIRER): - stable today - continue current medications [...] lexapro Assessment & Plan (07/15/2019 11:38 AM GAS METER REPAIRER): - stable - continue current plan Gastroesophageal reflux dise ase without esophagitis 07/15/2019 03/18/2023 Overview (07/15/2019): - GERD managed by Dr Woodard - Pt on omeprazole and carafate for sx control Assessment & Plan (01/01/2021 12:09 PM CDT): - stable - continue current medication Assessment & Plan (02/07/2020 2:32 PM CDT): - stable - continue current medication Assessment & Plan (07/15/2019 11:38 AM GAS METER REPAIRER): - stable - continue omeprazole and carafate Viral illness 07/08/2019 02/12/2021 Assessment & Plan (07/09/2019 9:12 AM GAS METER REPAIRER): Medrol Dosepak as directed. Recommended Mucinex plain [...] (09/17/2018): Added automatically from request for surgery [id number] Assessment & Plan (02/12/2021 11:23 AM CDT): - encouraged pt to f/u with new GI - continue hyoscyamine Assessment & Plan (01/01/2021 12:10 PM CDT): - continue prn oxycodone for now - discussed need to wean off of this as this is not a viable chcf solution - will ref to pain management [...] medication Assessment & Plan (07/15/2019 11:36 AM GAS METER REPAIRER): - controlled - continue current plan Chronic [...] - 12/03/2024 3:20 PM CDT Hospital Encounter [id number] [place] [address] Domenic Arias MD Holthaus, MD Alexandra Ayala Fariah Habib, DO Jain, Anshu, MD Enteritis (Primary Dx); Abdominal pain; Cyclic vomiting syndrome; Hyperemesis Discharge Disposition: Discharge to home or self care 11/26/2024 2:02 AM CDT - 11/26/2024 4:25 AM CDT Emergency [facility] Emergency Department [address] [place] [id number] Blue Warren MD Abdominal pain (Primary Dx); Nausea and vomiting, unspecified vomiting type Discharge Disposition: Discharge to home or self care 10/20/2024 [facility] Out[facility] [address] [address] Niki Burns MA 10/19/2024 [facility] Outreach [address] [address] Niki Burns MA 10/18/2024 1:45 PM CDT - 10/18/2024 7:54 PM CDT Emergency [facility] Emergency Department [address] [place] [phone] Oswaldo Burns MD Chronic abdominal pain (Primary Dx) Discharge Disposition: Discharge to home or self care 10/18/2024 [facility] ED Outreach [address] [address] Niki Burns MA 10/14/2024 12:14 AM CDT - 10/14/2024 2:13 AM CDT Emergency [facility] Emergency Department [address] [place] [phone] Enteritis (Primary Dx) Discharge Disposition: Discharge to home or self care 10/13/2024 4:36 AM CDT - 10/13/2024 10:20 AM CDT [address] [address] Rodney Mejia MD Journagan, Kevin, MD Abdominal pain (Primary Dx); History of pancreatitis; Chronic abdominal pain; Nausea and vomiting, unspecified vomiting type Discharge Disposition: Discharge to home or self care 10/08/2024 7:54 PM CDT - 10/08/2024 8:06 PM CDT Emergency [facility] Emergency Department [address] [place] [address] Chronic abdominal pain (Primary Dx) Discharge Disposition: Discharge to home or self care 10/07/2024 5:29 AM CDT - 10/07/2024 8:34 AM CDT Emergency [address] [address] Jose Francisco Harper DO Prograis, Shannon Smith, MD Abdominal pain (Primary Dx); Chronic pancreatitis, unspecified pancreatitis type (HCC) Discharge Disposition: Discharge to home or self care 10/06/2024 11:00 AM CDT Office Visit [facility] Primary [facility] [address] [place] [phone] Td Lopez MD Abdominal pain (Primary Dx); Other chronic pancreatitis (HCC); Gastroesophageal reflux disease without esophagitis; Irritable bowel syndrome with both constipation and diarrhea 10/05/2024 [facility] IP Outreach [facility] Care Organization [address] [place] [address] Lakshmi Garcia LPN 10/04/2024 Telephone [facility] Primary [facility] [address] [place] [phone] Td Lopez MD schedule [facility] appt 10/02/2024 9:53 PM CDT - 10/03/2024 11:39 AM CDT Hospital Encounter [address] [place] [address] María Elena Calvo MD Medavaram, Atul, MD Sada, Kahmalia-Kalee Conceptia, MD Chowdhury, Farhanaz, MD Abdominal pain (Primary Dx); Acute pancreatitis, unspecified complication status, unspecified pancreatitis type; Pain, dental Discharge Disposition: Discharge to home or self care 09/30/2024 5:44 PM CDT - 09/30/2024 8:58 PM CDT Emergency [facility] Emergency Department [address] [place] [address] Radha Casas DO Abdominal pain (Primary Dx); [...] drink = 0.6 oz pur e alcohol) [employer] Answer Date Recorded In the past 12 months has [employer], gas, oil, or water [employer] threatened to shut off services in your [...] week 12/01/2024 How often do you attend [facility] or jainism services? Never 12/01/2024 Do you belong to [...] place to sleep or slept in a intermediate (including now)? No 09/21/2023 PHQ-9 Answer Date [...] any time in the past 12 [facility], were you homeless or living in a intermediate (including now)? No 12/01/2024 Personal Safety Answer Date Recorded Have you ever been in or are you currently in a harmful physical or emotional relationship or is someone making you feel afraid or unsafe? Denies 11/30/2024 Sex and Gender Information Value Date Recorded Sex Assigned at Not on file Legal Sex Male 3:38 AM GAS METER REPAIRER Gender Identity Not on file Sexual Orientation [...] Vaccines Discontinued Medical Devices Explanted Type Area Flume Maker Device Identifier Shelf Expiration Date Model / Serial / Lot [employer] 6572 Connell Flexi-Stent 7fr 5cm Small Pigtail Flexible .035in Stent - [id number] Implanted:Qty: 1 on 09/18/2018 by Vimal Woodruff MD at [facility] Explanted:Qty: 1 on 09/20/2018 at [facility] Stent N/A: Pancreas [employer] 06/10/2023 [id number] / / [id number] Conmed Gina [id number] [place] Viabil 10mm 8.5fr 6cm 200cm Fully Covered Self Expand Pull - [id number] - [id number] Implanted:Qty: 1 on 09/18/2018 by Vimal Woodruff MD at [facility] Explanted:Qty: 1 on 09/20/2018 at [facility] Stent N/A: Bile Duct Conmed Gina 06/29/2021 [id number] / [id number] / [employer] Connell Flexi-Stent 7fr 9cm Small Pigtail Flexible .035in Stent 6575 - [id number] Implanted:Qty: 1 on 02/07/2022 by Vimal Woodruff MD at [facility] Explanted:Qty: 1 on 02/10/2022 by Vimal Woodruff MD at [facility] Stent N/A: Pancreas [employer] 09/07/2026 [id number] / / [id number] [employer] Gina Wallflex 10mm X 60mm Fully Covered Biliary [id number] - [id number] Implanted:Qty: 1 on 02/07/2022 by Vimal Woodruff MD at [facility] Explanted:Qty: 1 on 02/10/2022 by Vimal Woodruff MD at [facility] Stent N/A: Bile Duct [employer] Gina 11/04/2023 [id number] / / [id number] [employer] Connell Flexi-Stent 7fr 9cm Small Pigtail Flexible .035in Stent 6575 - [id number] Implanted:Qty: 1 on 09/21/2023 by Vimal Woodruff MD at [facility] Explanted:Qty: 1 on 09/23/2023 by Vimal Woodruff MD at [facility] Stent N/A: Pancreas [employer] 03/11/2028 [id number] / / [id number] Description:Not present at b eginning of case. Self migrated out [employer] Gina Wallflex 10mm X 60mm Fully Covered Biliary [id number] - [id number] Implanted:Qty: 1 on 09/21/2023 by Vimal Woodruff MD at [facility] Explanted:Qty: 1 on 09/23/2023 by Vimal Woodruff MD at [facility] Stent N/A: Bile Duct [employer] Gina 08/02/2025 [id number] / / [id number] Procedures Procedure Name Priority Date/Time Associated Diagnosis Comments [facility] CR[facility] C[facility] ILL/INJURED PATIENT INIT 30-74 MIN [...] CDT from Last 3 Months Results * [facility]IT[facility] C[facility] ILL/INJURED PATIENT INIT 30-74 MIN [...] * eGFR (12/01/2024 1:49 AM CDT) Pathologist [facility] eGFR >90 >=60 mL/min/1. [...] MD LAB BLOOD ORDERABLES Final R esult [facility] [address] Department [place] [address] * (ABNORMAL) Differential, auto (12/01/2024 1:49 AM CDT) Pathologist [facility] Neutrophil abs 8.27(H) 1.50 - 6.50 K/cumm Imm gran abs 0.04 0.00 - 0.10 K/cumm [facility] Lymphocyte abs 1.58 0.80 - 3.30 K/cumm [facility] Monocyte abs 0.97(H) 0.20 - 0.80 K/cumm [facility] Eosinophil abs 0.03 0.00 - 0.50 K/cumm [facility] Basophil abs 0.05 0.00 - 0.10 K/cumm [facility] Neutrophil pct 75.5 % [facility] Comment: Interpretive Data Percent cell count reference ranges are not reported, since discordance with absolute values may lead to misinterpretation of CBC data. Current Interpretive Data was last revised on 2017. Imm gran pct 0.4 % [facility] Comment: Interpretive Data Percent cell count reference ranges are not reported, since discordance with absolute values may lead to misinterpretation of CBC data. Current Interpretive Data was last revised on 2017. Lymphocyte pct 14.4 % [facility] Comment: Interpretive Data Percent cell count reference ranges are not reported, since discordance with absolute values may lead to misinterpretation of CBC data. Current Interpretive Data was last revised on 2017. Monocyte pct 8.9 % [facility] Comment: Interpretive Data Percent cell count reference ranges are not reported, since discordance with absolute values may lead to misinterpretation of CBC data. Current Interpretive Data was last revised on 2017. Eosinophil pct 0.3 % [facility] Comment: Interpretive Data Percent cell count reference ranges are not reported, since discordance with absolute values may lead to misinterpretation of CBC data. Current Interpretive Data was last revised on 2017. Basophil pct 0.5 % [facility] Comment: Interpretive Data Percent cell count reference ranges are not reported, since discordance with absolute values may lead to misinterpretation of CBC data. Current Interpretive Data was last revised on 2017. Blood 12/01/2024 1:49 AM CDT 12/01/2024 2:08 AM CDT us Domenic Arias MD LAB BLOOD ORDERABLES Final R esult [facility] [address] Department of Laboratories [place], [place] [id number] * (ABNORMAL) CBC with auto differential (12/01/2024 1:49 AM CDT) WBC 10.94(H) 3.80 - 9.90 K/cumm Hgb 13.5 13.0 - 17.5 g/dL [facility] Hct 40.4 38.9 - 50.3 % [facility] Plt 242 150 - 400 K/cumm [facility] MPV 10.5 9.1 - 12.3 fL [facility] RBC 4.59 4.30 - 5.80 M/cumm [facility] MCV 88.0 81.3 - 96.4 fL [facility] MCH 29.4 27.1 - 33.3 pg [facility] MCHC 33.4 32.3 - 35.7 g/dL [facility] RDW CV 15.7(H) 11.1 - 14.9 % [facility] RDW SD 50.5(H) 35.7 - 48.1 fL [facility] NRBC abs 0.00 0.00 - 0.01 K/cumm [facility] Blood 12/01/2024 1:49 AM CDT 12/01/2024 2:08 AM CDT Domenic Arias MD LAB BLOOD ORDERABLES Final R esult Performing Organization Address City/[facility] Co de Phone Number [facility] [address] [place] [address] * Lipase (12/01/2024 1:49 AM CDT) [facility] Lipase 23 10 - 99 Units/L Blood 12/01/2024 1:49 AM CDT 12/01/2024 2:08 AM CDT Domenic Arias MD LAB BLOOD ORDERABLES Final R esult Performing Organization Address City/[facility]/ZIP Co de Phone Number [facility] [address] [place] [address] * (ABNORMAL) Comprehensive metabolic panel (12/01/2024 1:49 AM CDT) [facility] Sodium 142 135 - 145 mmol/L Potassium, pl 4.2 3.3 - 4.9 mmol/L [facility] Chloride 106 97 - 110 mmol/L [facility] CO2 23 22 - 32 mmol/L [facility] Anion gap 13 2 - 15 mmol/L [facility] BUN 6 6 - 25 mg/dL [facility] Creatinine 0.86 0.80 - 1.30 mg/dL [facility] Glucose 99 70 - 199 mg/dL [facility] Comment: Interpretive Data Fasting glucose >/= 126 [...] - 10.3 mg/dL [facility] Bilirubin, total 0.6 0.1 - 1.2 mg/dL [facility] Protein, pl 6.2(L) 6.5 - 8.5 g/dL [facility] Albumin 4.0 3.5 - 5.0 g/dL [facility] Alk phos 76 40 - 130 Units/L [facility] ALT 17 7 - 55 Units/L [facility] AST 20 10 - 50 Units/L [facility] Blood 12/01/2024 1:49 AM CDT 12/01/2024 2:08 AM CDT us Domenic Arias MD LAB BLOOD ORDERABLES Final R esult [facility] [address] Department [place] [address] * ECG 12 lead (11/30/2024 10:57 PM CDT) 11/30/2024 10:5 7 PM CDT Narrative [facility] - 12/01/2024 7:47 AM CDT Vent Rate: 64 bpm RR Interval: 926 msec [place] Interval: 91 msec QRS Duration: 104 msec QT Interval: 382 msec QTC Interval: 392 msec P-R-T [place]: 12 - 72 - 72 degrees IMPRESSION: SINUS RHYTHM WITH SINUS ARRHYTHMIA WITH SHORT [place] INTERVAL INCOMPLETE RIGHT BUNDLE BRANCH BLOCK BORDERLINE ECG Electronically Signed By: Mich Quintana MD PhD Domenic Arias MD ECG ORDERABLES Final Result [facility] ImmuVen [facility] * CT Abdomen Pelvis W Contrast (11/26/2024 [...] clear. Heart size normal. No effusion. LIVER/BILIARY: Subg-dl-cbobaylu steatosis. Unchanged pneumobilia. GALLBLADDER: Absent. SPLEEN: Normal. [...] Aryan Jovel M.D. AR: GIOVANNA Report ID: [id number] Reading Location: [id number] Procedure Note Aryan Jovel MD - 11/26/2024 [...] clear. Heart size normal. No effusion. LIVER/BILIARY: Bkqc-ry-abhdbcgh steatosis. Unchanged pneumobilia. GALLBLADDER: Absent. SPLEEN: Normal. [...] Aryan Jovel M.D. AR: GIOVANNA Report ID: [id number] Reading Location: [id number] Blue Warren MD IM CT PROCEDURES F inal Result * Troponin T high-sensitivity 2-hour (11/26/2024 1:13 AM CDT) Trop T hs 8 <=22 ng/L Comment: Interpretive Data For further hscTnT resources including the diagnostic algorithm and an aid in interpretation, copy and paste this link: https://nrl.testcatalog.org/show/hsTrop Current Interpretive Data last revised 2020. Testing performed by: [address] [address] Trop T hs delta -3 ng/L NEEL SMITH Comment:Testing performed by : [address] [address] Trop T hs interp Insignificant NEEL SMITH Comment:Testing performed by : [address] [address] Blood 11/26/2024 1:13 AM CDT 11/26/2024 1:25 AM CDT us Blue Warren MD LAB BLOOD ORDERABLE S Final Result NEEL [address] [facility] Department [place] [address] * Urinalysis reflex to microscopic and culture Urine (11/25/2024 11:13 PM CDT) Color, ur Yellow Yellow Comment:Testing performed by : [address] [address] Clarity, ur Clear Clear NEEL SMITH Comment:Testing performed by : [address] [address] Specific gravity, ur 1.020 1.003 - 1.030 NEEL Comment:Testing performed by : [address] [address] pH, urine 6.0 NEEL Comment: Interpretive Data U rine pH is affected by diet, medications, systemic acid-base disturbances, and renal tubular function. pH may affect urinary stone formation. For example, urine pH below 6.0 may help reduce the tendency for calcium phosphate stones and pH greater than 6.0 may reduce the tendency for uric acid stone formation. Source: [employer] Current Interpretive Data was last revised on 2017 Testing performed by: [address] [address] Protein, ur ql Negative Negative NEEL Comment:Testing performed by : [facility], [address] [place] [address], [place]., [address] Glucose, ur ql Negative Negative NEEL Comment:Testing performed by : [facility], [address] [place] [address], [place]., [address] Ketones, ur Negative Negative NEEL Comment:Testing performed by : [address], [place]., [address] Bilirubin, ur Negative Negative NEEL Comment:Testing performed by : [facility], [address] [place] [address], [place]., [address] Blood, ur Negative Negative NEEL Comment:Testing performed by : [address], [place]., [address] Urobilinogen, ur <2.0 <2.0 mg/dL NEEL Comment:Testing performed by : [address], [place]., [address] Nitrite, ur Negative Negative NEEL Comment:Testing performed by : [address], [place]., [address] Leukocyte esterase, ur Negative Negative NEEL Comment:Testing performed by : [address], [place]., [address] UA reflex comment Reflex conditions for microscopic UA and culture not met. NEEL Comment:Testing performed by : [facility], [address] [place] [address], [place]., [address] Urine 11/25/2024 11:1 3 PM CDT 11/25/2024 11:24 PM CDT us Blue Warren MD LAB MICROBIOLOGY - GENERAL ORDERABLES Final Result NEEL [address] [facility] Department [place] [address] * Troponin T high-sensitivity series (baseline, 2hr, 4hr, 6hr) (11/25/2024 11:06 PM CDT) Trop T hs 11 <=22 ng/L Comment: Interpretive Data For further hscTnT resources including the diagnostic algorithm and an aid in interpretation, copy and paste this link: https://nrl.testcatalog.org/show/hsTrop Current Interpretive Data last revised 2020. Testing performed by: [address] [address] Blood 11/25/2024 11:0 6 PM CDT 11/25/2024 11:24 PM CDT us Blue Warren MD LAB BLOOD ORDERABLE S Final Result Performing Organization Address City/[facility]/ZIP Co de Phone Number NEEL [facility] Department [place] [address] * eGFR (11/25/2024 11:06 PM [...] was last reviewed 2021. Testing performed by: [facility], [address] [place] [address]., [address] Blood 11/25/2024 11:0 6 PM CDT 11/25/2024 11:24 PM CDT us Blue Warren MD LAB BLOOD ORDERABLE S Final Result Performing Organization Address City/[facility]/ZIP Co de Phone Number NEEL [address] [facility] Department [place] [address] * (ABNORMAL) Differential, auto (11/25/2024 11:06 PM CDT) Neutrophil abs 13.59(H) 1.50 - 6.50 K/cumm Comment:Testing performed by : [address] [address] Imm gran abs 0.11(H) 0.00 - 0.10 K/cumm NEEL Comment:Testing performed by : [address], [place]., [address] Lymphocyte abs 1.24 0.80 - 3.30 K/cumm NEEL Comment:Testing performed by : [address] [address] Monocyte abs 0.90(H) 0.20 - 0.80 K/cumm NEEL Comment:Testing performed by : [address] [address] Eosinophil abs 0.02 0.00 - 0.50 K/cumm NEEL Comment:Testing performed by : [address] [address] Basophil abs 0.05 0.00 - 0.10 K/cumm NEEL Comment:Testing performed by : [address] [address] Neutrophil pct 85.4 % NEEL Comment: Interpretive Data Percent cell count reference ranges are not reported, since discordance with absolute values may lead to misinterpretation of CBC data. Current Interpretive Data was last revised on 2017. Testing performed by: [address] [address] Imm gran pct 0.7 % NEEL Comment: Interpretive Data Percent cell count reference ranges are not reported, since discordance with absolute values may lead to misinterpretation of CBC data. Current Interpretive Data was last revised on 2017. Testing performed by: [address] [address] Lymphocyte pct 7.8 % NEEL Comment: Interpretive Data Percent cell count reference ranges are not reported, since discordance with absolute values may lead to misinterpretation of CBC data. Current Interpretive Data was last revised on 2017. Testing performed by: [address] [address] Monocyte pct 5.7 % NEEL Comment: Interpretive Data Percent cell count reference ranges are not reported, since discordance with absolute values may lead to misinterpretation of CBC data. Current Interpretive Data was last revised on 2017. Testing performed by: [address] [address] Eosinophil pct 0.1 % NEEL Comment: Interpretive Data Percent cell count reference ranges are not reported, since discordance with absolute values may lead to misinterpretation of CBC data. Current Interpretive Data was last revised on 2017. Testing performed by: [address] [address] Basophil pct 0.3 % NEEL Comment: Interpretive Data Percent cell count reference ranges are not reported, since discordance with absolute values may lead to misinterpretation of CBC data. Current Interpretive Data was last revised on 2017. Testing performed by: [address] [address] Blood 11/25/2024 11:0 6 PM CDT 11/25/2024 11:24 PM CDT us Blue Warren MD LAB BLOOD ORDERABLE S Final Result NEEL [address] [facility] Department [place] [address] * (ABNORMAL) CBC with auto differential (11/25/2024 11:06 PM CDT) WBC 15.91(H) 3.80 - 9.90 K/cumm Comment:Testing performed by : [address] [address] Hgb 15.1 13.0 - 17.5 g/dL NEEL Comment:Testing performed by : [address] [address] Hct 44.2 38.9 - 50.3 % NEEL Comment:Testing performed by : [address], [address] Plt 300 150 - 400 K/cumm NEEL Comment:Testing performed by : [address], [address] MPV 9.7 9.1 - 12.3 fL NEEL Comment:Testing performed by : [address], [address] RBC 5.26 4.30 - 5.80 M/cumm NEEL Comment:Testing performed by : [address], [address] MCV 84.0 81.3 - 96.4 fL NEEL Comment:Testing performed by : [address], [address] MCH 28.7 27.1 - 33.3 pg NEEL Comment:Testing performed by : [address], [address] MCHC 34.2 32.3 - 35.7 g/dL NEEL Comment:Testing performed by : [address], [address] RDW CV 15.2(H) 11.1 - 14.9 % NEEL Comment:Testing performed by : [address], [address] RDW SD 46.3 35.7 - 48.1 fL NEEL Comment:Testing performed by : [address], [address] NRBC abs 0.00 0.00 - 0.01 K/cumm NEEL Comment:Testing performed by : [address], [address] Blood Venous blood specimen / Unknown 11/25/2024 11:06 PM CDT 11/25/2024 11:24 PM CDT Blue Warren MD LAB BLOOD ORDERABLE S Final Result NEEL [address] [address] * Lipase (11/25/2024 11:06 PM CDT) [facility] Lipase 24 10 - 99 Units/L Comment:Testing performed by : [address] [address] Blood Venous blood specimen / Unknown 11/25/2024 11:06 PM CDT 11/25/2024 11:24 PM CDT us Blue Warren MD LAB BLOOD ORDERABLE S Final Result Performing Organization Address [facility] Co de Phone Number NEEL [address] [address] * (ABNORMAL) Comprehensive metabolic panel (11/25/2024 11:06 PM CDT) [facility] Sodium 140 135 - 145 mmol/L Comment:Testing performed by : [address] [address] Potassium, pl 4.1 3.3 - 4.9 mmol/L NEEL Comment:Testing performed by : [address] [address] Chloride 102 97 - 110 mmol/L NEEL Comment:Testing performed by : [address] [address] CO2 24 22 - 32 mmol/L NEEL Comment:Testing performed by : [address] [address] Anion gap 14 2 - 15 mmol/L NEEL Comment:Testing performed by : [address] [address] BUN 10 6 - 25 mg/dL NEEL Comment:Testing performed by : [address] [address] Creatinine 1.01 0.80 - 1.30 mg/dL NEEL Comment:Testing performed by : [address] [address] Glucose 115 70 - 199 mg/dL NEEL [...] was last revised 2022. Testing performed by: [address] [address] Calcium 10.5(H) 8.5 - 10.3 mg/dL NEEL Comment:Testing performed by : [address] [address] Bilirubin, total 0.4 0.1 - 1.2 mg/dL NEEL Comment:Testing performed by : [address] [address] Protein, pl 7.4 6.5 - 8.5 g/dL NEEL Comment:Testing performed by : [address] [address] Albumin 4.5 3.5 - 5.0 g/dL NEEL Comment:Testing performed by : [address] [address] Alk phos 89 40 - 130 Units/L NEEL Comment:Testing performed by : [address] [address] ALT 19 7 - 55 Units/L NEEL Comment:Testing performed by : [address] [address] AST 21 10 - 50 Units/L NEEL Comment:Testing performed by : [address] [address] Blood 11/25/2024 11:0 6 PM CDT 11/25/2024 11:24 PM CDT us Blue Warren MD LAB BLOOD ORDERABLE S Final Result Performing Organization Address [facility]/ZIP Co de Phone Number NEEL [facility] Department [place] [address] * ECG 12 lead (11/25/2024 11:02 PM CDT) Ventricular Rate EKG/Min 74 BPM [facility] Atrial Rate 74 BPM [facility] W[place]-Interval (MSEC) [address] [facility] QRS-Interval (MSEC) [address] [facility] QT-Interval (MSEC) 354 ms [facility] QTc 392 ms [facility] P [place] -18 degrees [facility] R [place] [address] [facility] T [place] 56 degrees [facility] Diagnosis Sinus rhythm with sinus arrhythmia with short [place] Otherwise normal ECG When compared with ECG of 13-OCT-2024 03:54, No significant change was found Confirmed by DARIEL CARLOS M.D. ([id number]) on 11/26/2024 10:02:21 PM [facility] 11/25/2024 11:0 2 PM CDT 11/26/2024 10:02 PM CDT us Blue Warren MD ECG ORDERABLES Fin al Result Performing Organization Address [facility] de Phone Number [facility] ImmuVen [facility] * CT Abdomen Pelvis W Contrast [...] ur Yellow Yellow Clarity, ur Turbid(A) Clear [facility] Specific gravity, ur 1.014 1.003 - 1.030 [facility] pH, urine 7.5 [facility] Comment: Interpretive Data U rine pH is affected by diet, medications, systemic acid-base disturbances, and renal tubular function. pH may affect urinary stone formation. For example, urine pH below 6.0 may help reduce the tendency for calcium phosphate stones and pH greater than 6.0 may reduce the tendency for uric acid stone formation. Source: [facility] Current Interpretive Data was last revised on 2017 Protein, ur ql Trace Negative [facility] Glucose, ur ql Negative Negative [facility] Ketones, ur 1+(A) Negative [facility] Bilirubin, ur Negative Negative [facility] Blood, ur Negative Negative [facility] Urobilinogen, ur <2.0 <2.0 mg/dL [facility] Nitrite, ur Negative Negative [facility] Leukocyte esterase, ur Negative Negative [facility] UA reflex comment Reflex conditions for microscopic UA and culture not met. [facility] Urine 10/18/2024 3:34 PM CDT 10/18/2024 3:34 PM CDT Oswaldo Burns MD LAB MICROBIOLOGY - GENERAL ORDERABLES Final Result [facility] [address] Department [place] [address] * eGFR (10/18/2024 12:48 PM CDT) eGFR [...] Final R esult [facility] [address] Department [place] [address] * (ABNORMAL) Differential, auto (10/18/2024 12:48 PM CDT) Neutrophil abs 12.53(H) 1.50 - 6.50 K/cumm Imm gran abs 0.08 0.00 - 0.10 K/cumm [facility] Lymphocyte abs 1.17 0.80 - 3.30 K/cumm [facility] Monocyte abs 1.45(H) 0.20 - 0.80 K/cumm [facility] Eosinophil abs 0.07 0.00 - 0.50 K/cumm [facility] Basophil abs 0.07 0.00 - 0.10 K/cumm [facility] Neutrophil pct 81.5 % [facility] Comment: Interpretive Data Percent cell count reference ranges are not reported, since discordance with absolute values may lead to misinterpretation of CBC data. Current Interpretive Data was last revised on 2017. Imm gran pct 0.5 % [facility] Comment: Interpretive Data Percent cell count reference ranges are not reported, since discordance with absolute values may lead to misinterpretation of CBC data. Current Interpretive Data was last revised on 2017. Lymphocyte pct 7.6 % [facility] Comment: Interpretive Data Percent cell count reference ranges are not reported, since discordance with absolute values may lead to misinterpretation of CBC data. Current Interpretive Data was last revised on 2017. Monocyte pct 9.4 % [facility] Comment: Interpretive Data Percent cell count reference ranges are not reported, since discordance with absolute values may lead to misinterpretation of CBC data. Current Interpretive Data was last revised on 2017. Eosinophil pct 0.5 % [facility] Comment: Interpretive Data Percent cell count reference ranges are not reported, since discordance with absolute values may lead to misinterpretation of CBC data. Current Interpretive Data was last revised on 2017. Basophil pct 0.5 % [facility] Comment: Interpretive Data Percent cell count reference ranges are not reported, since discordance with absolute values may lead to misinterpretation of CBC data. Current Interpretive Data was last revised on 2017. Blood 10/18/2024 12:4 8 PM CDT 10/18/2024 1:27 PM CDT Oswaldo Burns MD LAB BLOOD ORDERABLES Final Result [facility] [address] Department [place] [address] * (ABNORMAL) CBC with auto differential (10/18/2024 12:48 PM CDT) WBC 15.37(H) 3.80 - 9.90 K/cumm Hgb 14.6 13.0 - 17.5 g/dL [facility] Hct 43.2 38.9 - 50.3 % [facility] Plt 353 150 - 400 K/cumm [facility] MPV 10.0 9.1 - 12.3 fL [facility] RBC 5.10 4.30 - 5.80 M/cumm [facility] MCV 84.7 81.3 - 96.4 fL [facility] MCH 28.6 27.1 - 33.3 pg [facility] MCHC 33.8 32.3 - 35.7 g/dL [facility] RDW CV 15.8(H) 11.1 - 14.9 % [facility] RDW SD 48.2(H) 35.7 - 48.1 fL [facility] NRBC abs 0.00 0.00 - 0.01 K/cumm [facility] Blood Venous blood specimen / Unknown 10/18/2024 12:48 PM CDT 10/18/2024 1:27 PM CDT Oswaldo Burns MD LAB BLOOD ORDERABLES Final Result Performing Organization Address City/[facility] Co de Phone Number [facility] [address] [facility] [place] [address] * Lipase (10/18/2024 12:48 PM CDT) Pathologist [facility] Lipase 36 10 - 99 Units/L Blood Venous blood specimen / Unknown 10/18/2024 12:48 PM CDT 10/18/2024 1:27 PM CDT Oswaldo Burns MD LAB BLOOD ORDERABLES Final Result Performing Organization Address [facility] de Phone Number [facility] [address] [place] [address] * (ABNORMAL) Comprehensive metabolic panel (10/18/2024 12:48 PM CDT) [facility] Sodium 141 135 - 145 mmol/L Potassium, pl 3.8 3.3 - 4.9 mmol/L [facility] Chloride 103 97 - 110 mmol/L [facility] CO2 22 22 - 32 mmol/L [facility] Anion gap 16(H) 2 - 15 mmol/L [facility] BUN 9 6 - 25 mg/dL [facility] Creatinine 1.01 0.80 - 1.30 mg/dL [facility] Glucose 132 70 - 199 mg/dL [facility] Comment: Interpretive Data Fasting glucose >/= 126 [...] 2022. Calcium 9.8 8.5 - 10.3 mg/dL [facility] Bilirubin, total 0.7 0.1 - 1.2 mg/dL [facility] Protein, pl 7.3 6.5 - 8.5 g/dL [facility] Albumin 4.4 3.5 - 5.0 g/dL [facility] Alk phos 83 40 - 130 Units/L [facility] ALT 22 7 - 55 Units/L [facility] AST 28 10 - 50 Units/L [facility] Blood 10/18/2024 12:4 8 PM CDT 10/18/2024 1:27 PM CDT Oswaldo Burns MD LAB BLOOD ORDERABLES Final Result Performing Organization Address City/[facility]/ZIP Co de Phone Number [facility] [address] Department [place] [address] * Lipase - Add on lab test (10/14/2024 4:29 AM CDT) Acceptable Yes Blood 10/14/2024 4:29 AM CDT 10/14/2024 4:29 AM CDT Narrative [facility] - 10/14/2024 4:30 AM CDT Name of Test->Lipase Yusef Bear MD LAB BLOOD ORDERABLES Final Result [facility] [address] Department [place] [address] * CT Abdomen Pelvis W Contrast (10/14/2024 1:38 AM CDT) Anatomical Region Laterality Modality Body N/A Computed Tomogra phy 10/14/2024 1:29 AM CDT Impressions 10/14/2024 9:11 AM CDT No acute abnormality in the abdomen or pelvis. No pancreatitis. For the purposes of quality improvement coordinator, this study was initially interpreted by [...] pancreatitis. For the purposes of quality improvement coordinator, this study was initially interpreted by [...] ur Clear Clear [facility] Specific gravity, ur 1.010 1.003 - 1.030 [facility] pH, urine 6.5 [facility] Comment: Interpretive Data U rine pH is affected by diet, medications, systemic acid-base disturbances, and renal tubular function. pH may affect urinary stone formation. For example, urine pH below 6.0 may help reduce the tendency for calcium phosphate stones and pH greater than 6.0 may reduce the tendency for uric acid stone formation. Source: [facility] sofatutor Current Interpretive Data was last revised on 2017 Protein, ur ql Negative Negative [facility] Glucose, ur ql Negative Negative [facility] Ketones, ur 1+(A) Negative [facility] Bilirubin, ur Negative Negative [facility] Blood, ur Negative Negative [facility] Urobilinogen, ur <2.0 <2.0 mg/dL [facility] Nitrite, ur Negative Negative [facility] Leukocyte esterase, ur Negative Negative [facility] UA reflex comment Reflex conditions for microscopic UA and culture not met. [facility] Urine 10/13/2024 10:1 0 PM CDT 10/13/2024 10:11 PM CDT Abdiel Donaldson MD LAB MICROBIOLOGY - GENERAL O RDERABLES Final Result Performing Organization Address City/[facility] Co de Phone Number [facility] [address] [place] [address] * eGFR (10/13/2024 10:06 PM CDT) eGFR [...] ORDERABLES Final R esult Performing Organization Address City/[facility]/ZIP Co de Phone Number [facility] [address] Department of Laboratories [place], [place] [id number] * (ABNORMAL) Differential, auto (10/13/2024 10:06 PM CDT) Neutrophil abs 11.31(H) 1.50 - 6.50 K/cumm Imm gran abs 0.06 0.00 - 0.10 K/cumm [facility] Lymphocyte abs 1.47 0.80 - 3.30 K/cumm [facility] Monocyte abs 1.09(H) 0.20 - 0.80 K/cumm [facility] Eosinophil abs 0.07 0.00 - 0.50 K/cumm [facility] Basophil abs 0.04 0.00 - 0.10 K/cumm [facility] Neutrophil pct 80.5 % [facility] Comment: Interpretive Data Percent cell count reference ranges are not reported, since discordance with absolute values may lead to misinterpretation of CBC data. Current Interpretive Data was last revised on 2017. Imm gran pct 0.4 % [facility] Comment: Interpretive Data Percent cell count reference ranges are not reported, since discordance with absolute values may lead to misinterpretation of CBC data. Current Interpretive Data was last revised on 2017. Lymphocyte pct 10.5 % [facility] Comment: Interpretive Data Percent cell count reference ranges are not reported, since discordance with absolute values may lead to misinterpretation of CBC data. Current Interpretive Data was last revised on 2017. Monocyte pct 7.8 % [facility] Comment: Interpretive Data Percent cell count reference ranges are not reported, since discordance with absolute values may lead to misinterpretation of CBC data. Current Interpretive Data was last revised on 2017. Eosinophil pct 0.5 % [facility] Comment: Interpretive Data Percent cell count reference ranges are not reported, since discordance with absolute values may lead to misinterpretation of CBC data. Current Interpretive Data was last revised on 2017. Basophil pct 0.3 % [facility] Comment: Interpretive Data Percent cell count reference ranges are not reported, since discordance with absolute values may lead to misinterpretation of CBC data. Current Interpretive Data was last revised on 2017. Blood 10/13/2024 10:0 6 PM CDT 10/13/2024 10:43 PM CDT us Abdiel Donaldson MD LAB BLOOD ORDERABLES Final R esult [facility] [address] Department [place] [address] * (ABNORMAL) CBC with auto differential (10/13/2024 10:06 PM CDT) Pathologist [facility] WBC 14.04(H) 3.80 - 9.90 K/cumm Hgb 14.1 13.0 - 17.5 g/dL [facility] Hct 43.6 38.9 - 50.3 % [facility] Plt 312 150 - 400 K/cumm [facility] MPV 10.3 9.1 - 12.3 fL [facility] RBC 5.01 4.30 - 5.80 M/cumm [facility] MCV 87.0 81.3 - 96.4 fL [facility] MCH 28.1 27.1 - 33.3 pg [facility] MCHC 32.3 32.3 - 35.7 g/dL [facility] RDW CV 15.6(H) 11.1 - 14.9 % [facility] RDW SD 49.1(H) 35.7 - 48.1 fL [facility] NRBC abs 0.00 0.00 - 0.01 K/cumm [facility] Blood Venous blood specimen / Unknown 10/13/2024 10:06 PM CDT 10/13/2024 10:43 PM CDT Abdiel Donaldson MD LAB BLOOD ORDERABLES Final R esult Performing Organization Address City/[facility]/ZIP Co de Phone Number [facility] [address] Department [place] [address] * (ABNORMAL) Lipase (10/13/2024 10:06 PM CDT) Pathologist [facility] Lipase 119(H) 10 - 99 Units/L Blood 10/13/2024 10:0 6 PM CDT 10/13/2024 10:43 PM CDT Abdiel Donaldson MD LAB BLOOD ORDERABLES Final R esult [facility] [address] Department [place] [address] * (ABNORMAL) Comprehensive metabolic panel (10/13/2024 10:06 PM CDT) Sodium 144 135 - 145 mmol/L Potassium, pl 3.7 3.3 - 4.9 mmol/L [facility] Chloride 104 97 - 110 mmol/L [facility] CO2 22 22 - 32 mmol/L [facility] Anion gap 18(H) 2 - 15 mmol/L [facility] BUN 7 6 - 25 mg/dL [facility] Creatinine 0.91 0.80 - 1.30 mg/dL [facility] Glucose 95 70 - 199 mg/dL [facility] Comment: Interpretive Data Fasting glucose >/= 126 [...] - 10.3 mg/dL [facility] Bilirubin, total 0.4 0.1 - 1.2 mg/dL [facility] Protein, pl 7.0 6.5 - 8.5 g/dL [facility] Albumin 4.5 3.5 - 5.0 g/dL [facility] Alk phos 82 40 - 130 Units/L [facility] ALT 16 7 - 55 Units/L [facility] AST 19 10 - 50 Units/L [facility] Blood Venous blood specimen / Unknown 10/13/2024 10:06 PM CDT 10/13/2024 10:43 PM CDT us Abdiel Donaldson MD LAB BLOOD ORDERABLES Final R esult [facility] [address] Department [place] [address] * ECG 12 lead (10/13/2024 9:51 PM CDT) 10/13/2024 9:51 PM CDT Narrative [facility] - 10/14/2024 9:31 AM CDT Vent Rate: 68 bpm RR Interval: 880 msec [place] Interval: 129 msec QRS Duration: 113 msec QT Interval: 357 msec QTC Interval: 374 msec P-R-T [place]: 26 - 53 - 61 degrees IMPRESSION: SINUS RHYTHM WITH A BORDERLINE SHORT [place] INTERVAL WITH MARKED SINUS ARRHYTHMIA INCOMPLETE RIGHT BUNDLE-BRANCH BLOCK BORDERLINE ECG Electronically Signed By: Calvin Sanabria MD mobap us Jose Francisco Jessica MD ECG ORDERABLES Final Resu lt [facility] * (ABNORMAL) Differential, auto (10/13/2024 7:40 AM CDT) Neutrophil abs 12.72(H) 1.50 - 6.50 K/cumm Imm gran abs 0.06 0.00 - 0.10 K/cumm [facility] Lymphocyte abs 0.98 0.80 - 3.30 K/cumm [facility] Monocyte abs 0.59 0.20 - 0.80 K/cumm [facility] Eosinophil abs 0.01 0.00 - 0.50 K/cumm [facility] Basophil abs 0.04 0.00 - 0.10 K/cumm [facility] Neutrophil pct 88.3 % [facility] Comment: Interpretive Data Percent cell count reference ranges are not reported, since discordance with absolute values may lead to misinterpretation of CBC data. Current Interpretive Data was last revised on 2017. Imm gran pct 0.4 % [facility] Comment: Interpretive Data Percent cell count reference ranges are not reported, since discordance with absolute values may lead to misinterpretation of CBC data. Current Interpretive Data was last revised on 2017. Lymphocyte pct 6.8 % [facility] Comment: Interpretive Data Percent cell count reference ranges are not reported, since discordance with absolute values may lead to misinterpretation of CBC data. Current Interpretive Data was last revised on 2017. Monocyte pct 4.1 % [facility] Comment: Interpretive Data Percent cell count reference ranges are not reported, since discordance with absolute values may lead to misinterpretation of CBC data. Current Interpretive Data was last revised on 2017. Eosinophil pct 0.1 % [facility] Comment: Interpretive Data Percent cell count reference ranges are not reported, since discordance with absolute values may lead to misinterpretation of CBC data. Current Interpretive Data was last revised on 2017. Basophil pct 0.3 % [facility] Comment: Interpretive Data Percent cell count reference ranges are not reported, since discordance with absolute values may lead to misinterpretation of CBC data. Current Interpretive Data was last revised on 2017. Blood 10/13/2024 7:40 AM CDT 10/13/2024 7:42 AM CDT us Rodney Mejia MD LAB BLOOD ORDERABLES [facility] Result [place] [id number] [facility] Department [place] [address] * (ABNORMAL) CBC with auto differential (10/13/2024 7:40 AM CDT) WBC 14.40(H) 3.80 - 9.90 K/cumm Hgb 13.1 13.0 - 17.5 g/dL [facility] Hct 40.8 38.9 - 50.3 % [facility] Plt 242 150 - 400 K/cumm [facility] MPV 9.9 9.1 - 12.3 fL [facility] RBC 4.61 4.30 - 5.80 M/cumm [facility] MCV 88.5 81.3 - 96.4 fL [facility] MCH 28.4 27.1 - 33.3 pg [facility] MCHC 32.1(L) 32.3 - 35.7 g/dL [facility] RDW CV 15.4(H) 11.1 - 14.9 % [facility] RDW SD 49.5(H) 35.7 - 48.1 fL [facility] NRBC abs 0.00 0.00 - 0.01 K/cumm [facility] Blood 10/13/2024 7:40 AM CDT 10/13/2024 7:42 AM CDT Narrative [facility] - 10/13/2024 7:45 AM CDT For after fluids Rodney Mejia MD LAB BLOOD ORDERABLES Fi nal Result Performing Organization Address [facility] de Phone Number [address] [address] * Sepsis Lactate w/ Reflex (10/13/2024 4:57 AM CDT) Pathologist [facility] Sepsis Lactate 1.1 0.7 - 2.0 mmol/L Blood 10/13/2024 4:57 AM CDT 10/13/2024 4:59 AM CDT Rodney Mejia MD LAB BLOOD ORDERABLES Fi nal Result Performing Organization Address [facility] de Phone Number [address] [address] * (ABNORMAL) Drugs of Abuse Screen, Urine with Reflex Confirmation (10/13/2024 4:13 AM CDT) Pathologist [facility] Amphetamine, ur [...] Screen Positive, presumptive (A) CutOff 50 ng/mL [facility] Comment: Interpretive Data - Cannabinoids: Samples containing greater than 50 ng/mL delta-9 THC -COOH or other cross- reacting compounds are reported as positive. False positive and false negative results are possible. Confirmatory testing required for definitive results. Current Interpretive Data was last reviewed 2022. Cocaine, ur Not Detected CutOff 150ng/mL [facility] Comment: Interpretive Data - Cocaine: Samples containing greater than 150 ng/mL benzoylecgonine or other cross- reacting compounds are reported as positive. False positive and false negative results are possible. Confirmatory testing required for definitive results. Current Interpretive Data was last reviewed 2022. Fentanyl, Ur Not Detected CutOff 5 ng/mL [facility] Comment: Interpretive Data - Fentanyl: Samples containing greater than 5 ng/mL norfentanyl, fentanyl, or other cross-reacting fentanyl compounds are reported as positive. False positive and false negative results are possible. Confirmatory testing required for definitive results. Current Interpretive Data was last reviewed 2023. Methadone, ur Not Detected CutOff 300ng/mL [facility] Comment: Interpretive Data - Methadone: Samples containing greater than 300 ng/mL d,l-methadone or other cross-reacting compounds are reported as positive. False positive and false negative results are possible. Confirmatory testing required for definitive results. Current Interpretive Data was last reviewed 2022. Opiates, ur Not Detected CutOff 300ng/mL [facility] Comment: Interpretive Data - Opiates: Samples containing greater than 300 ng/mL morphine or other cross-reacting compounds are reported as positive. False positive and false negative results are possible. Confirmatory testing required for definitive results. Current Interpretive Data was last reviewed 2022. Oxycodone, ur Not Detected CutOff 100ng/mL [facility] Comment: Interpretive Data - Oxycodone: Samples containing [...] LAB URINE ORDERABLES Fi nal Result NEEL [address] [facility] Department [place] [address] * Troponin T high-sensitivity series [...] nal Result Performing Organization Address [facility] Co de Phone Number NEEL [address] [place] [address] * eGFR (10/13/2024 4:08 AM CDT) Pathologist [facility] eGFR 83 >=60 mL/min/1. 73 m2 Comment: [...] nal Result Performing Organization Address [facility] de Phone Number NEEL [address] Department [place] [address] * (ABNORMAL) Differential, auto (10/13/2024 4:08 AM CDT) Pathologist [facility] Neutrophil abs 12.87(H) 1.50 - 6.50 K/cumm Imm gran abs 0.09 0.00 - 0.10 K/cumm [facility] Lymphocyte abs 2.58 0.80 - 3.30 K/cumm [facility] Monocyte abs 1.61(H) 0.20 - 0.80 K/cumm [facility] Eosinophil abs 0.19 0.00 - 0.50 K/cumm [facility] Basophil abs 0.07 0.00 - 0.10 K/cumm [facility] Neutrophil pct 74.0 % [facility] Comment: Interpretive Data Percent cell count reference ranges are not reported, since discordance with absolute values may lead to misinterpretation of CBC data. Current Interpretive Data was last revised on 2017. Imm gran pct 0.5 % [facility] Comment: Interpretive Data Percent cell count reference ranges are not reported, since discordance with absolute values may lead to misinterpretation of CBC data. Current Interpretive Data was last revised on 2017. Lymphocyte pct 14.8 % [facility] Comment: Interpretive Data Percent cell count reference ranges are not reported, since discordance with absolute values may lead to misinterpretation of CBC data. Current Interpretive Data was last revised on 2017. Monocyte pct 9.2 % [facility] Comment: Interpretive Data Percent cell count reference ranges are not reported, since discordance with absolute values may lead to misinterpretation of CBC data. Current Interpretive Data was last revised on 2017. Eosinophil pct 1.1 % [facility] Comment: Interpretive Data Percent cell count reference ranges are not reported, since discordance with absolute values may lead to misinterpretation of CBC data. Current Interpretive Data was last revised on 2017. Basophil pct 0.4 % [facility] Comment: Interpretive Data Percent cell count reference ranges are not reported, since discordance with absolute values may lead to misinterpretation of CBC data. Current Interpretive Data was last revised on 2017. Blood 10/13/2024 4:08 AM CDT 10/13/2024 4:16 AM CDT us Rodney Mejia MD LAB BLOOD ORDERABLES Fi nal Result NEEL [address] [facility] Department [place] [address] * (ABNORMAL) Urinalysis reflex to microscopic and culture Urine (10/13/2024 4:08 AM CDT) Color, ur Yellow Yellow Clarity, ur Cloudy(A) Clear [facility] Specific gravity, ur 1.013 1.003 - 1.030 [facility] pH, urine 7.5 [facility] Comment: Interpretive Data U rine pH is affected by diet, medications, systemic acid-base disturbances, and renal tubular function. pH may affect urinary stone formation. For example, urine pH below 6.0 may help reduce the tendency for calcium phosphate stones and pH greater than 6.0 may reduce the tendency for uric acid stone formation. Source: [facility] Current Interpretive Data was last revised on 2017 Protein, ur ql Negative Negative [facility] Glucose, ur ql Negative Negative [facility] Ketones, ur Negative Negative [facility] Bilirubin, ur Negative Negative [facility] Blood, ur Negative Negative [facility] Urobilinogen, ur <2.0 <2.0 mg/dL [facility] Nitrite, ur Negative Negative [facility] Leukocyte esterase, ur Negative Negative [facility] UA reflex comment Reflex conditions for microscopic UA and culture not met. [facility] Urine 10/13/2024 4:08 AM CDT 10/13/2024 4:16 AM CDT Rodney Mejia MD LAB MICROBIOLOGY - [facility] ORDERABLES Final Result [facility] [address] [facility] Department [place] [address] * (ABNORMAL) CBC with auto differential (10/13/2024 4:08 AM CDT) WBC 17.41(H) 3.80 - 9.90 K/cumm Hgb 13.8 13.0 - 17.5 g/dL [facility] Hct 41.2 38.9 - 50.3 % [facility] Plt 291 150 - 400 K/cumm [facility] MPV 9.9 9.1 - 12.3 fL [facility] RBC 4.87 4.30 - 5.80 M/cumm [facility] MCV 84.6 81.3 - 96.4 fL [facility] MCH 28.3 27.1 - 33.3 pg [facility] MCHC 33.5 32.3 - 35.7 g/dL [facility] RDW CV 15.4(H) 11.1 - 14.9 % [facility] RDW SD 46.5 35.7 - 48.1 fL [facility] NRBC abs 0.00 0.00 - 0.01 K/cumm [facility] Blood Venous blood specimen / Unknown 10/13/2024 4:08 AM CDT 10/13/2024 4:16 AM CDT Rodney Mejia MD LAB BLOOD ORDERABLES Fi nal Result Performing Organization Address City/[facility] de Phone Number [address] [place] [address] * (ABNORMAL) Lipase (10/13/2024 4:08 AM CDT) [facility] Lipase 270(H) 10 - 99 Units/L Blood Venous blood specimen / Unknown 10/13/2024 4:08 AM CDT 10/13/2024 4:16 AM CDT Rodney Mejia MD LAB BLOOD ORDERABLES Fi nal Result Performing Organization Address [facility] de Phone Number [address] [place] [address] * Comprehensive metabolic panel (10/13/2024 4:08 AM CDT) [facility] Sodium 141 135 - 145 mmol/L Potassium, pl 3.8 3.3 - 4.9 mmol/L [facility] Chloride 104 97 - 110 mmol/L [facility] CO2 22 22 - 32 mmol/L [facility] Anion gap 15 2 - 15 mmol/L [facility] BUN 12 6 - 25 mg/dL [facility] Creatinine 1.13 0.80 - 1.30 mg/dL [facility] Glucose 110 70 - 199 mg/dL [facility] Comment: Interpretive Data Fasting glucose [...] 2022. Calcium 9.2 8.5 - 10.3 mg/dL [facility] Bilirubin, total 0.3 0.1 - 1.2 mg/dL [facility] Protein, pl 6.8 6.5 - 8.5 g/dL [facility] Albumin 4.2 3.5 - 5.0 g/dL [facility] Alk phos 77 40 - 130 Units/L [facility] ALT 15 7 - 55 Units/L [facility] AST 19 10 - 50 Units/L [facility] Blood 10/13/2024 4:08 AM CDT 10/13/2024 4:16 AM CDT Rodney Mejia MD LAB BLOOD ORDERABLES Fi nal Result Performing Organization Address City/[facility]/ZIP Co de Phone Number [facility] [address] [facility] Department [place] [address] * ECG 12 lead (10/13/2024 3:54 AM CDT) Ventricular Rate EKG/Min [address] [facility] Atrial Rate 66 BPM [facility] W[place]-Interval (MSEC) 86 ms [facility] QRS-Interval (MSEC) 100 ms [facility] QT-Interval (MSEC) 376 ms [facility] QTc 394 ms [facility] P [place] 3 degrees [facility] R [place] 45 degrees [facility] T [place] 52 degrees [facility] Diagnosis Sinus rhythm with short [place] Incomplete right bundle branch block Confirmed by HOLLAND MELGAR M.D. ([id number]) on 10/13/2024 9:29:09 AM [facility] 10/13/2024 3:54 AM CDT 10/13/2024 9:29 AM CDT Rodney Mejia MD ECG ORDERABLES Final R esult Performing Organization Address City/[facility]/ZIP Co de Phone Number [facility] * eGFR (10/08/2024 7:25 PM CDT) eGFR [...] was last reviewed 2021. Testing performed by: [address] [address] Blood 10/08/2024 7:25 PM CDT 10/08/2024 7:29 PM CDT us Lilliana LAWTON LAB BLOOD ORDERABLES Final Result NEEL [address] [facility] Department [place] [address] * (ABNORMAL) Differential, auto (10/08/2024 7:25 PM CDT) Pathologist [facility] Neutrophil abs 5.02 1.50 - 6.50 K/cumm Comment:Testing performed by : [address] [address] Imm gran abs 0.04 0.00 - 0.10 K/cumm NEEL Comment:Testing performed by : [address] [address] Lymphocyte abs 3.13 0.80 - 3.30 K/cumm NEEL Comment:Testing performed by : [address] [address] Monocyte abs 1.11(H) 0.20 - 0.80 K/cumm NEEL Comment:Testing performed by : [address], [place]., [address] Eosinophil abs 0.10 0.00 - 0.50 K/cumm [facility] Comment:Testing performed by : [address], [place]., [address] Basophil abs 0.06 0.00 - 0.10 K/cumm [facility] Comment:Testing performed by : [address] [address] Neutrophil pct 53.1 % [facility] Comment: Interpretive Data Percent cell count reference ranges are not reported, since discordance with absolute values may lead to misinterpretation of CBC data. Current Interpretive Data was last revised on 2017. Testing performed by: [address] [address] Imm gran pct 0.4 % [facility] Comment: Interpretive Data Percent cell count reference ranges are not reported, since discordance with absolute values may lead to misinterpretation of CBC data. Current Interpretive Data was last revised on 2017. Testing performed by: [address] [address] Lymphocyte pct 33.1 % [facility] Comment: Interpretive Data Percent cell count reference ranges are not reported, since discordance with absolute values may lead to misinterpretation of CBC data. Current Interpretive Data was last revised on 2017. Testing performed by: [address] [address] Monocyte pct 11.7 % [facility] Comment: Interpretive Data Percent cell count reference ranges are not reported, since discordance with absolute values may lead to misinterpretation of CBC data. Current Interpretive Data was last revised on 2017. Testing performed by: [address] [address] Eosinophil pct 1.1 % [facility] Comment: Interpretive Data Percent cell count reference ranges are not reported, since discordance with absolute values may lead to misinterpretation of CBC data. Current Interpretive Data was last revised on 2017. Testing performed by: [address] [address] Basophil pct 0.6 % NEEL SMITH Comment: Interpretive Data Percent cell count reference ranges are not reported, since discordance with absolute values may lead to misinterpretation of CBC data. Current Interpretive Data was last revised on 2017. Testing performed by: [address] [address] Blood 10/08/2024 7:25 PM CDT 10/08/2024 7:29 PM CDT Lilliana LAWTON LAB BLOOD ORDERABLES Final Result NEEL SMITH [facility] Department [place] [address] * (ABNORMAL) CBC with auto differential (10/08/2024 7:25 PM CDT) WBC 9.46 3.80 - 9.90 K/cumm Comment:Testing performed by : [address] [address] Hgb 15.0 13.0 - 17.5 g/dL NEEL SMITH Comment:Testing performed by : [address] [address] Hct 44.6 38.9 - 50.3 % NEEL SMITH Comment:Testing performed by : [address] [address] Plt 321 150 - 400 K/cumm NEEL SMITH Comment:Testing performed by : [address] [address] MPV 10.0 9.1 - 12.3 fL NEEL SMITH Comment:Testing performed by : [address] [address] RBC 5.38 4.30 - 5.80 M/cumm NEEL SMITH Comment:Testing performed by : [address] [address] MCV 82.9 81.3 - 96.4 fL NEEL SMITH Comment:Testing performed by : [address] [address] MCH 27.9 27.1 - 33.3 pg NEEL SMITH Comment:Testing performed by : [address] [address] MCHC 33.6 32.3 - 35.7 g/dL NEEL SMITH Comment:Testing performed by : [address] [address] RDW CV 15.5(H) 11.1 - 14.9 % NEEL SMITH Comment:Testing performed by : [address], [address] RDW SD 46.7 35.7 - 48.1 fL NEEL SMITH Comment:Testing performed by : [address], [address] NRBC abs 0.00 0.00 - 0.01 K/cumm NEEL Comment:Testing performed by : [address] [address] Blood Venous blood specimen / Unknown 10/08/2024 7:25 PM CDT 10/08/2024 7:29 PM CDT Lilliana LAWTON LAB BLOOD ORDERABLES Final Result Performing Organization Address City/[facility]/ZIP Co de Phone Number [address] [place] [address] * Lipase (10/08/2024 7:25 PM CDT) Lipase 42 10 - 99 Units/L Comment:Testing performed by : [address] [address] Blood Venous blood specimen / Unknown 10/08/2024 7:25 PM CDT 10/08/2024 7:29 PM CDT Lilliana LAWTON LAB BLOOD ORDERABLES Final Result [address] [place] [address] * Comprehensive metabolic panel (10/08/2024 7:25 PM CDT) Sodium 141 135 - 145 mmol/L Comment:Testing performed by : [address] [address] Potassium, pl 4.3 3.3 - 4.9 mmol/L NEEL Comment: Hemolyzed; Potassium value may be falsely elevated by as much as 1.0 mmol/L. Suggest redraw and reanalysis. Testing performed by: [address], [place]., [address] Chloride 105 97 - 110 mmol/L NEEL Comment:Testing performed by : [address] [address] CO2 22 22 - 32 mmol/L NEEL Comment:Testing performed by : [address] [address] Anion gap 14 2 - 15 mmol/L NEEL Comment:Testing performed by : [address] [address] BUN 7 6 - 25 mg/dL NEEL Comment:Testing performed by : [address] [address] Creatinine 1.02 0.80 - 1.30 mg/dL NEEL Comment:Testing performed by : [address] [address] Glucose 104 70 - 199 mg/dL NEEL [...] was last revised 2022. Testing performed by: [address] [address] Calcium 10.1 8.5 - 10.3 mg/dL NEEL Comment:Testing performed by : [address] [address] Bilirubin, total 0.3 0.1 - 1.2 mg/dL NEEL Comment:Testing performed by : [address] [address] Protein, pl 7.7 6.5 - 8.5 g/dL NEEL Comment:Testing performed by : [address] [address] Albumin 4.8 3.5 - 5.0 g/dL NEEL Comment:Testing performed by : [address], [address] Alk phos 88 40 - 130 Units/L NEEL Comment:Testing performed by : [address], [address] ALT 24 7 - 55 Units/L NEEL Comment:Testing performed by : [address] [address] AST 25 10 - 50 Units/L NEEL Comment: Hemolyzed; result may be falsely elevated Testing performed by: [address], [address] Blood 10/08/2024 7:25 PM CDT 10/08/2024 7:29 PM CDT Lilliana LAWTON LAB BLOOD ORDERABLES Final Result NEEL [address] [facility] Department of Laboratories [place], [place] [id number] * CTA Chest Abdomen Pelvis (10/07/2024 6:41 [...] 10/07/2024 7:18 AM - Electronically signed by Melsisa Phoenix M.D. SN T: Report ID: [id number] Reading Location: [place] [address] Procedure Note Melissa Phoenix MD - 10/07/2024 [...] Melissa Phoenix M.D. SN T: Report ID: [id number] Reading Location: [place] [address] Jose Francisco Harper DO IMG CT PROCEDURES [...] states this started about an hour ago [employer]. 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 SN T: Report ID: [id number] Reading Location: [id number] Procedure Note Melissa Phoenix MD - 10/07/2024 EXAM DESCRIPTION: XR CHEST 1 VIEW REASON FOR STUDY: Abd pain, unspecified C/o upper L quad abd pain. Pt states this started about an hour ago [employer].Pt states that he was recently hospitalized for [...] Melissa Phoenix M.D. SN T: Report ID: [id number] Reading Location: [id number] Jose Francisco Harper DO IMG XR PROCEDURES [...] BLOOD ORDERABLES Final Result Performing Organization Address City/[facility] Co de Phone Number NEEL [address] [facility] Department [place] [address] * ECG 12 lead (10/07/2024 4:11 AM CDT) Ventricular Rate EKG/Min [address] [facility] Atrial Rate 65 BPM [facility] [place]-Interval (MSEC) 108 ms [facility] QRS-Interval (MSEC) 102 ms [facility] QT-Interval (MSEC) 388 ms [facility] QTc 403 ms [facility] P [place] 30 degrees [facility] R [place] 56 degrees [facility] T [place] 58 degrees [facility] Diagnosis Sinus rhythm with short [place] Otherwise normal ECG When compared with ECG of 27-JUN-2024 09:54, No significant change was found Confirmed by ASHLIE BERMEO M.D. ([id number]) on 10/07/2024 11:47:08 PM [facility] 10/07/2024 4:11 AM CDT 10/07/2024 11:47 PM CDT us Jose Francisco Rubio Harper ECG ORDERABLES Final Resul t Performing Organization Address [facility] de Phone Number [facility] * Urinalysis reflex to microscopic and culture [...] for uric acid stone formation. Source: Ar[facility] Wahanda Current Interpretive Data was last revised on 2017 Protein, ur ql Negative Negative [facility] Glucose, ur ql Negative Negative [facility] Ketones, ur Negative Negative [facility] Bilirubin, ur Negative Negative [facility] Blood, ur Negative Negative [facility] Urobilinogen, ur <2.0 <2.0 mg/dL [facility] Nitrite, ur Negative Negative [facility] Leukocyte esterase, ur Negative Negative [facility] UA reflex comment Reflex conditions for microscopic UA and culture not met. [facility] Urine 10/07/2024 4:06 AM CDT 10/07/2024 4:10 AM CDT Jose Francisco [facility] MI[facility] - GENERAL ORDERABLES Final Result Performing Organization Address [facility] de Phone Number NEEL [address] [place] [address] * Troponin T high-sensitivity series (baseline, 2hr, 4hr, 6hr) (10/07/2024 4:00 AM CDT) [facility] Trop T hs <6 <=22 ng/L Comment: Interpretive Data For further hscTnT resources including the diagnostic algorithm and an aid in interpretation, copy and paste this link: https://nrl.testcatalog.org/show/hsTrop Current Interpretive Data last revised 2020. Blood 10/07/2024 4:00 AM CDT 10/07/2024 4:02 AM CDT Jose Francisco Rubio [facility] LAB BLOOD ORDERABLES Final Result Performing Organization Address [facility] Co de Phone Number QUINTEN[address] [place] [address] * eGFR (10/07/2024 4:00 AM CDT) [facility] eGFR 87 >=60 mL/min/1. 73 m2 [...] Harper DO LAB BLOOD ORDERABLES Final Result [place] [id number] [facility] Department [place] [address] * (ABNORMAL) Differential, auto (10/07/2024 4:00 AM CDT) Pathologist [facility] Neutrophil abs 5.81 1.50 - 6.50 K/cumm Imm gran abs 0.04 0.00 - 0.10 K/cumm [facility] Lymphocyte abs 3.73(H) 0.80 - 3.30 K/cumm [facility] Monocyte abs 1.14(H) 0.20 - 0.80 K/cumm [facility] Eosinophil abs 0.27 0.00 - 0.50 K/cumm [facility] Basophil abs 0.06 0.00 - 0.10 K/cumm [facility] Neutrophil pct 52.6 % [facility] Comment: Interpretive Data Percent cell count reference ranges are not reported, since discordance with absolute values may lead to misinterpretation of CBC data. Current Interpretive Data was last revised on 2017. Imm gran pct 0.4 % [facility] Comment: Interpretive Data Percent cell count reference ranges are not reported, since discordance with absolute values may lead to misinterpretation of CBC data. Current Interpretive Data was last revised on 2017. Lymphocyte pct 33.8 % [facility] Comment: Interpretive Data Percent cell count reference ranges are not reported, since discordance with absolute values may lead to misinterpretation of CBC data. Current Interpretive Data was last revised on 2017. Monocyte pct 10.3 % [facility] Comment: Interpretive Data Percent cell count reference ranges are not reported, since discordance with absolute values may lead to misinterpretation of CBC data. Current Interpretive Data was last revised on 2017. Eosinophil pct 2.4 % [facility] Comment: Interpretive Data Percent cell count reference ranges are not reported, since discordance with absolute values may lead to misinterpretation of CBC data. Current Interpretive Data was last revised on 2017. Basophil pct 0.5 % [facility] Comment: Interpretive Data Percent cell count reference ranges are not reported, since discordance with absolute values may lead to misinterpretation of CBC data. Current Interpretive Data was last revised on 2017. Blood 10/07/2024 4:00 AM CDT 10/07/2024 4:02 AM CDT Jose Francisco Harper DO LAB BLOOD ORDERABLES Final Result [place] [id number] [facility] Department [place] [address] * (ABNORMAL) CBC with auto differential (10/07/2024 4:00 AM CDT) WBC 11.05(H) 3.80 - 9.90 K/cumm Hgb 14.9 13.0 - 17.5 g/dL [facility] Hct 44.7 38.9 - 50.3 % [facility] Plt 281 150 - 400 K/cumm [facility] MPV 9.8 9.1 - 12.3 fL [facility] RBC 5.28 4.30 - 5.80 M/cumm [facility] MCV 84.7 81.3 - 96.4 fL [facility] MCH 28.2 27.1 - 33.3 pg [facility] MCHC 33.3 32.3 - 35.7 g/dL [facility] RDW CV 15.3(H) 11.1 - 14.9 % [facility] RDW SD 46.6 35.7 - 48.1 fL [facility] NRBC abs 0.00 0.00 - 0.01 K/cumm [facility] Blood Venous blood specimen / Unknown 10/07/2024 4:00 AM CDT 10/07/2024 4:02 AM CDT Jose Francisco Rubio [facility] LAB BLOOD ORDERABLES Final Result Performing Organization Address [facility] de Phone Number [address] [place] [address] * (ABNORMAL) Lipase (10/07/2024 4:00 AM CDT) [facility] Lipase 104(H) 10 - 99 Units/L Blood Venous blood specimen / Unknown 10/07/2024 4:00 AM CDT 10/07/2024 4:02 AM CDT Jose Francisco [facility] LAB BLOOD ORDERABLES Final Result Performing Organization Address [facility] de Phone Number [address] [address] * Comprehensive metabolic panel (10/07/2024 4:00 AM CDT) [facility] Sodium 142 135 - 145 mmol/L Potassium, pl 4.1 3.3 - 4.9 mmol/L [facility] Chloride 107 97 - 110 mmol/L [facility] CO2 23 22 - 32 mmol/L [facility] Anion gap 12 2 - 15 mmol/L [facility] BUN 9 6 - 25 mg/dL [facility] Creatinine 1.08 0.80 - 1.30 mg/dL [facility] Glucose 90 70 - 199 mg/dL [facility] Comment: Interpretive Data Fasting glucose [...] 2022. Calcium 9.4 8.5 - 10.3 mg/dL [facility] Bilirubin, total 0.2 0.1 - 1.2 mg/dL [facility] Protein, pl 7.1 6.5 - 8.5 g/dL [facility] Albumin 4.4 3.5 - 5.0 g/dL [facility] Alk phos 81 40 - 130 Units/L [facility] ALT 23 7 - 55 Units/L [facility] AST 24 10 - 50 Units/L [facility] Blood 10/07/2024 4:00 AM CDT 10/07/2024 4:02 AM CDT Jose Francisco Harper DO LAB BLOOD ORDERABLES Final Result NEEL [address] [facility] Department [place] [address] * eGFR (10/03/2024 7:08 AM CDT) eGFR [...] ORDERABLES Final Res ult Performing Organization Address [facility] Co de Phone Number NEEL [address] [place] [address] * (ABNORMAL) CBC without differential (10/03/2024 7:08 AM CDT) Pathologist [facility] WBC 13.42(H) 3.80 - 9.90 K/cumm Hgb 12.4(L) 13.0 - 17.5 g/dL [facility] Hct 37.9(L) 38.9 - 50.3 % [facility] Plt 226 150 - 400 K/cumm [facility] MPV 10.0 9.1 - 12.3 fL [facility] RBC 4.43 4.30 - 5.80 M/cumm [facility] MCV 85.6 81.3 - 96.4 fL [facility] MCH 28.0 27.1 - 33.3 pg [facility] MCHC 32.7 32.3 - 35.7 g/dL [facility] RDW CV 15.4(H) 11.1 - 14.9 % [facility] RDW SD 48.1 35.7 - 48.1 fL [facility] NRBC abs 0.00 0.00 - 0.01 K/cumm [facility] Blood 10/03/2024 7:08 AM CDT 10/03/2024 7:22 AM CDT us Fred Toth MD LAB BLOOD ORDERABLES Final Res ult Performing Organization Address City/[facility]/ZIP Co de Phone Number NEEL [address] [place] [address] * Lipase (10/03/2024 7:08 AM CDT) Pathologist [facility] Lipase 55 10 - 99 Units/L Blood 10/03/2024 7:08 AM CDT 10/03/2024 7:22 AM CDT us Fred Toth MD LAB BLOOD ORDERABLES Final Res ult Performing Organization Address City/[facility]/ZIP Co de Phone Number NEEL [address] [facility] [place] [address] * Basic metabolic panel (10/03/2024 7:08 AM CDT) Sodium 141 135 - 145 mmol/L Potassium, pl 4.4 3.3 - 4.9 mmol/L [facility] Chloride 107 97 - 110 mmol/L [facility] CO2 24 22 - 32 mmol/L [facility] Anion gap 10 2 - 15 mmol/L [facility] BUN 9 6 - 25 mg/dL [facility] Creatinine 0.96 0.80 - 1.30 mg/dL [facility] Glucose 100 70 - 199 mg/dL [facility] Comment: Interpretive Data Fasting glucose [...] 2022. Calcium 8.9 8.5 - 10.3 mg/dL [facility] Blood 10/03/2024 7:08 AM CDT 10/03/2024 7:22 AM CDT us Fred Toth MD LAB BLOOD ORDERABLES Final Res ult NEEL [address] [facility] [place] [address] * (ABNORMAL) Lipid panel (10/03/2024 1:54 AM [...] last revised on 2017. Testing performed by: [address] [address] Triglycerides 115 <=149 mg/dL NEEL Comment: Interpretive [...] last revised on 2017. Testing performed by: [address] [address] HDL 32(L) >=40 mg/dL NEEL Comment: Interpretive [...] last revised on 2017. Testing performed by: [address] [address] LDL, calculated 61 <=129 mg/dL NEEL Comment: [...] last revised on 2023. Testing performed by: [address] [address] Non-HDL Cholesterol 82 mg/dL NEEL SMITH Comment: [...] last revised on 2017. Testing performed by: [address] [address] Chol/HDL ratio 4 NEEL SMITH Comment:Testing performed by : [address] [address] Blood 10/03/2024 1:54 AM CDT 10/03/2024 2:00 AM CDT us Fred Toth MD LAB BLOOD ORDERABLES Final Res ult NEEL SMITH [address] [facility] Department [place] [address] * CT Abdomen Pelvis W Contrast (10/03/2024 [...] Aryan Jovel M.D. AR: GIOVANNA Report ID: [id number] Reading Location: [id number] Procedure Note Aryan Jovel MD - 10/03/2024 [...] Aryan Jovel M.D. AR: GIOVANNA Report ID: [id number] Reading Location: [id number] us Fred Toth MD [facility] [place]EDURES Final Result * (ABNORMAL) Drugs of Abuse Screen, Urine with Reflex Confirmation (10/03/2024 12:51 AM CDT) [facility] Amphetamine, ur Not Detected CutOff 500ng/mL Comment: Interpretive Data - Amphetamines: Samples containing greater than 500 ng/mL d-methamphetamine or other cross-reacting amphetamine compounds are reported as positive. Amphetamine immunoassays are subject to significant false positive rates due to cross-reactivity of non-amphetamine drugs. Confirmatory testing required for definitive results. Current Interpretive Data was last reviewed 2022. Testing performed by: [address] [address] Barbiturates, ur Not Detected CutOff 200ng/mL [facility] Comment: Interpretive Data - Barbiturates: Samples containing greater than 200 ng/mL secobarbital or other cross-reacting barbiturate compounds are reported as positive. False positive and false negative results are possible. Confirmatory testing required for definitive results. Current Interpretive Data was last reviewed 2022. Testing performed by: [address] [address] Benzodiazepines, ur Not Detected CutOff 100ng/mL [facility] Comment: Interpretive Data - Benzodiazepines: Samples containing greater than 100 ng/mL nordiazepam or other cross-reacting compounds are reported as positive. False positive and false negative results are possible. Confirmatory testing required for definitive results. Current Interpretive Data was last reviewed 2022. Testing performed by: [address] [address] Cannabinoids, ur Screen Positive, presumptive (A) CutOff 50 ng/mL [facility] Comment: Interpretive Data - Cannabinoids: Samples containing greater than 50 ng/mL delta-9 THC -COOH or other cross- reacting compounds are reported as positive. False positive and false negative results are possible. Confirmatory testing required for definitive results. Current Interpretive Data was last reviewed 2022. Testing performed by: [address] [address] Cocaine, ur Not Detected CutOff 150ng/mL [facility] Comment: Interpretive Data - Cocaine: Samples containing greater than 150 ng/mL benzoylecgonine or other cross- reacting compounds are reported as positive. False positive and false negative results are possible. Confirmatory testing required for definitive results. Current Interpretive Data was last reviewed 2022. Testing performed by: [facility], [address] [place] [address]., [address] Fentanyl, Ur Not Detected CutOff 5 ng/mL [facility] Comment: Interpretive Data - Fentanyl: Samples containing greater than 1 ng/mL fentanyl or other cross-reacting fentanyl compounds are reported as positive. False positive and false negative results are possible. Confirmatory testing required for definitive results. Current Interpretive Data was last reviewed 2022. Testing performed by: [facility], [address] [place] [address]., [address] Methadone, ur Not Detected CutOff 300ng/mL [facility] Comment: Interpretive Data - Methadone: Samples containing greater than 300 ng/mL d,l-methadone or other cross-reacting compounds are reported as positive. False positive and false negative results are possible. Confirmatory testing required for definitive results. Current Interpretive Data was last reviewed 2022. Testing performed by: [address] [address] Opiates, ur Not Detected CutOff 300ng/mL [facility] Comment: Interpretive Data - Opiates: Samples containing greater than 300 ng/mL morphine or other cross-reacting compounds are reported as positive. False positive and false negative results are possible. Confirmatory testing required for definitive results. Current Interpretive Data was last reviewed 2022. Testing performed by: [address] [address] Oxycodone, ur Not Detected CutOff 100ng/mL [facility] Comment: Interpretive Data - Oxycodone: Samples containing greater than 100 ng/mL oxycodone or other cross-reacting compounds are reported as positive. False positive and false negative results are possible. Confirmatory testing required for definitive results. Current Interpretive Data was last reviewed 2022. Testing performed by: [address] [address] Phencyclidine, ur Not Detected CutOff 25 ng/mL [facility] Comment: Interpretive Data - Phencyclidine: Samples containing greater than 25 ng/mL phencyclidine or other cross-reacting compounds are reported as positive. False positive and false negative results are possible. Confirmatory testing required for definitive results. Current Interpretive Data was last reviewed 2022. Testing performed by: [address] [address] Urine Creatinine 102 mg/dL NEEL Comment: Interpretive Data Urine Creatinine: < 10 mg/dL is extremely dilute = or > 10 but < 20 mg/dL is dilute = or > 20 mg/dL is normal Current Interpretive Data was last revised on 2017. Testing performed by: [address] [address] Urine 10/03/2024 12:5 1 AM CDT 10/03/2024 [...] LAB URINE ORDERABLES Final Res ult NEEL 74[address] [facility] Department [place] [address] * Urinalysis reflex to microscopic and culture Urine (10/02/2024 10:09 PM CDT) Color, ur Yellow Yellow Comment:Testing performed by : [address] [address] Clarity, ur Clear Clear NEEL Comment:Testing performed by : [address] [address] Specific gravity, ur 1.011 1.003 - 1.030 NEEL Comment:Testing performed by : [address] [address] pH, urine 6.0 NEEL Comment: Interpretive Data [...] last revised on 2017 Testing performed by: [facility], [address] [place] [address], [place]., [address] Protein, ur ql Negative Negative NEEL Comment:Testing performed by : [facility], [address] [place] [address], [place]., [address] Glucose, ur ql Negative Negative NEEL Comment:Testing performed by : [address], [place]., [address] Ketones, ur Negative Negative NEEL Comment:Testing performed by : [address], [place]., [address] Bilirubin, ur Negative Negative NEEL Comment:Testing performed by : [address], [place]., [address] Blood, ur Negative Negative NEEL Comment:Testing performed by : [address], [place]., [address] Urobilinogen, ur <2.0 <2.0 mg/dL NEEL Comment:Testing performed by : [address], [place]., [address] Nitrite, ur Negative Negative NEEL Comment:Testing performed by : [address], [place]., [address] Leukocyte esterase, ur Negative Negative NEEL Comment:Testing performed by : [address], [place]., [address] UA reflex comment Reflex conditions for microscopic UA and culture not met. NEEL Comment:Testing performed by : [address] [address] Urine 10/02/2024 10:0 9 PM CDT 10/02/2024 10:11 PM CDT us María Elena Calvo MD LAB MICROBIOLOGY - GENERA L ORDERABLES Final Result NEEL SMITH 93[address] [facility] Department of Laboratories [place], [place] [id number] * eGFR (10/02/2024 9:51 PM CDT) eGFR [...] was last reviewed 2021. Testing performed by: [address] [address] Blood 10/02/2024 9:51 PM CDT 10/02/2024 9:57 PM CDT us María Elena Calvo MD LAB BLOOD ORDERABLES Renee antunez Result NEEL [address] [facility] Department [place] [address] * (ABNORMAL) Differential, auto (10/02/2024 9:51 PM CDT) Pathologist [facility] Neutrophil abs 12.91(H) 1.50 - 6.50 K/cumm Comment:Testing performed by : [address] [address] Imm gran abs 0.10 0.00 - 0.10 K/cumm NEEL Comment:Testing performed by : [address] [address] Lymphocyte abs 1.91 0.80 - 3.30 K/cumm NEEL Comment:Testing performed by : [address] [address] Monocyte abs 1.44(H) 0.20 - 0.80 K/cumm [facility] Comment:Testing performed by : [address] [address] Eosinophil abs 0.14 0.00 - 0.50 K/cumm [facility] Comment:Testing performed by : [address], [place]., [address] Basophil abs 0.07 0.00 - 0.10 K/cumm [facility] Comment:Testing performed by : [address] [address] Neutrophil pct 78.0 % [facility] Comment: Interpretive Data Percent cell count reference ranges are not reported, since discordance with absolute values may lead to misinterpretation of CBC data. Current Interpretive Data was last revised on 2017. Testing performed by: [address] [address] Imm gran pct 0.6 % [facility] Comment: Interpretive Data Percent cell count reference ranges are not reported, since discordance with absolute values may lead to misinterpretation of CBC data. Current Interpretive Data was last revised on 2017. Testing performed by: [address] [address] Lymphocyte pct 11.5 % [facility] Comment: Interpretive Data Percent cell count reference ranges are not reported, since discordance with absolute values may lead to misinterpretation of CBC data. Current Interpretive Data was last revised on 2017. Testing performed by: [address] [address] Monocyte pct 8.7 % [facility] Comment: Interpretive Data Percent cell count reference ranges are not reported, since discordance with absolute values may lead to misinterpretation of CBC data. Current Interpretive Data was last revised on 2017. Testing performed by: [address] [address] Eosinophil pct 0.8 % [facility] Comment: Interpretive Data Percent cell count reference ranges are not reported, since discordance with absolute values may lead to misinterpretation of CBC data. Current Interpretive Data was last revised on 2017. Testing performed by: [address] [address] Basophil pct 0.4 % NEEL Comment: Interpretive Data Percent cell count reference ranges are not reported, since discordance with absolute values may lead to misinterpretation of CBC data. Current Interpretive Data was last revised on 2017. Testing performed by: [address] [address] Blood 10/02/2024 9:51 PM CDT 10/02/2024 9:57 PM CDT us María Elena Calvo MD LAB BLOOD ORDERABLES Renee antunez Result [facility] [address] [facility] Department of Laboratories [place], [place] [id number] * (ABNORMAL) CBC with auto differential (10/02/2024 9:51 PM CDT) WBC 16.57(H) 3.80 - 9.90 K/cumm Comment:Testing performed by : [address] [address] Hgb 13.9 13.0 - 17.5 g/dL NEEL Comment:Testing performed by : [address] [address] Hct 41.0 38.9 - 50.3 % NEEL Comment:Testing performed by : [address] [address] Plt 281 150 - 400 K/cumm NEEL Comment:Testing performed by : [address] [address] MPV 9.9 9.1 - 12.3 fL NEEL Comment:Testing performed by : [address] [address] RBC 4.94 4.30 - 5.80 M/cumm NEEL SMITH Comment:Testing performed by : [address] [address] MCV 83.0 81.3 - 96.4 fL NEEL Comment:Testing performed by : [address] [address] MCH 28.1 27.1 - 33.3 pg NEEL SMITH Comment:Testing performed by : [address] [address] MCHC 33.9 32.3 - 35.7 g/dL NEEL SMITH Comment:Testing performed by : [address], [address] RDW CV 15.4(H) 11.1 - 14.9 % NEEL SMITH Comment:Testing performed by : [address], [address] RDW SD 46.5 35.7 - 48.1 fL NEEL Comment:Testing performed by : [address], [address] NRBC abs 0.00 0.00 - 0.01 K/cumm NEEL SMITH Comment:Testing performed by : [address], [address] Blood Venous blood specimen / Unknown 10/02/2024 9:51 PM CDT 10/02/2024 9:57 PM CDT María Elena Calvo MD LAB BLOOD ORDERABLES Renee l Result Performing Organization Address City/[facility]/ZIP Co de Phone Number [address] [place] [address] * (ABNORMAL) Lipase (10/02/2024 9:51 PM CDT) Lipase 444(H) 10 - 99 Units/L Comment:Testing performed by : [address], [address] Blood Venous blood specimen / Unknown 10/02/2024 9:51 PM CDT 10/02/2024 9:57 PM CDT María Elena Calvo MD LAB BLOOD ORDERABLES Renee l Result [address] [place] [address] * Comprehensive metabolic panel (10/02/2024 9:51 PM CDT) Sodium 143 135 - 145 mmol/L Comment:Testing performed by : [address] [address] Potassium, pl 3.9 3.3 - 4.9 mmol/L [facility] Comment:Testing performed by : [address], [place]., [address] Chloride 107 97 - 110 mmol/L [facility] Comment:Testing performed by : [address], [place]., [address] CO2 22 22 - 32 mmol/L [facility] Comment:Testing performed by : [address], [place]., [address] Anion gap 14 2 - 15 mmol/L [facility] Comment:Testing performed by : [address], [place]., [address] BUN 7 6 - 25 mg/dL [facility] Comment:Testing performed by : [address], [place]., [address] Creatinine 1.08 0.80 - 1.30 mg/dL [facility] Comment:Testing performed by : [address] [address] Glucose 129 70 - 199 mg/dL [facility] Comment: Interpretive Data Fasting glucose [...] was last revised 2022. Testing performed by: [address] [address] Calcium 10.0 8.5 - 10.3 mg/dL [facility] Comment:Testing performed by : [address] [address] Bilirubin, total 0.3 0.1 - 1.2 mg/dL NEEL Comment:Testing performed by : [address] [address] Protein, pl 7.2 6.5 - 8.5 g/dL NEEL Comment:Testing performed by : [address] [address] Albumin 4.5 3.5 - 5.0 g/dL NEEL Comment:Testing performed by : [address] [address] Alk phos 84 40 - 130 Units/L NEEL Comment:Testing performed by : [address] [address] ALT 28 7 - 55 Units/L NEEL Comment:Testing performed by : [address] [address] AST 37 10 - 50 Units/L NEEL Comment:Testing performed by : [address] [address] Blood 10/02/2024 9:51 PM CDT 10/02/2024 9:57 PM CDT María Elena Calvo MD LAB BLOOD ORDERABLES Renee antunez Result NEEL 101[address] [facility] Department [place] [address] * CT Abdomen Pelvis W Contrast (09/30/2024 [...] Esa Cao M.D. AG: GONZALES Report ID: [id number] Reading Location: [id number] Procedure Note Esa Cao MD - 09/30/2024 [...] Esa Cao M.D. AG: GONZALES Report ID: [id number] Reading Location: [place] [address] [facility]ED[facility] Final Result * (ABNORMAL) Urinalysis reflex to microscopic and culture Urine (09/30/2024 5:55 PM CDT) Color, ur Yellow Yellow Comment:Testing performed by : [address] [address] Clarity, ur Clear Clear NEEL Comment:Testing performed by : [address] [address] Specific gravity, ur 1.035(H) 1.003 - 1.030 NEEL Comment:Testing performed by : [address] [address] pH, urine 6.0 NEEL Comment: Interpretive Data U rine pH is affected by diet, medications, systemic acid-base disturbances, and renal tubular function. pH may affect urinary stone formation. For example, urine pH below 6.0 may help reduce the tendency for calcium phosphate stones and pH greater than 6.0 may reduce the tendency for uric acid stone formation. Source: [facility] sofatutor Current Interpretive Data was last revised on 2017 Testing performed by: [address] [address] Protein, ur ql 1+(A) Negative NEEL Comment:Testing performed by : [address] [address] Glucose, ur ql Negative Negative NEEL Comment:Testing performed by : [address] [address] Ketones, ur 1+(A) Negative NEEL Comment:Testing performed by : [address] [address] Bilirubin, ur Negative Negative NEEL Comment:Testing performed by : [facility], [address] [place] [address], [place]., [address] Blood, ur Negative Negative NEEL Comment:Testing performed by : [facility], [address] [place] [address], [place]., [address] Urobilinogen, ur 2.0(A) <2.0 mg/dL NEEL SMITH Comment:Testing performed by : [address], [place]., [address] Nitrite, ur Negative Negative NEEL Comment:Testing performed by : [address], [place]., [address] Leukocyte esterase, ur Negative Negative NEEL Comment:Testing performed by : [address], [place]., [address] UA reflex comment Reflex to microscopic UA will be performed. NEEL Comment:Testing performed by : [address], [place]., [address] Urine 09/30/2024 5:55 PM CDT 09/30/2024 5:57 PM CDT us Radha Casas DO LAB MICROBIOLOGY - GENERAL ORDE SAMEER Final Result NEEL 14[address] [facility] Department [place] [address] * (ABNORMAL) Urinalysis, microscopic only (09/30/2024 5:55 PM CDT) WBC, ur 6-10(A) 0 - 5 /HPF Comment:Testing performed by : [facility] [address] [place] [address], [place]., [address] RBC, ur 3-5(A) 0 - 2 /HPF NEEL SMITH Comment:Testing performed by : [address], [place]., [address] Epithelial cells, squamous, ur 6-10(A) 0 - 5 /HPF NEEL SMITH Comment:Testing performed by : [address], [place]., [address] Mucous, ur Present(A) NEEL SMITH Comment:Testing performed by : [address] [address] Culture Reflex Comment Reflex conditions for urine culture (WBC >10) not met. NEEL Comment:Testing performed by : [address] [address] Urine 09/30/2024 5:55 PM CDT 09/30/2024 5:57 PM CDT Radha Casas DO LAB URINE ORDERABLES Final Resu lt Performing Organization Address [facility]/ZIP Co de Phone Number NEEL [address] [facility] Department [place] [address] * eGFR (09/30/2024 4:01 PM [...] was last reviewed 2021. Testing performed by: [address] [address] Blood 09/30/2024 4:01 PM CDT 09/30/2024 4:06 PM CDT Radha Casas DO LAB BLOOD ORDERABLES Final Resu lt Performing Organization Address City/[facility]/ZIP Co de Phone Number NEEL 55[address] [facility] Department [place] [address] * Differential, auto (09/30/2024 4:01 PM CDT) Neutrophil abs 5.11 1.50 - 6.50 K/cumm Comment:Testing performed by : [address] [address] Imm gran abs 0.04 0.00 - 0.10 K/cumm NEEL Comment:Testing performed by : [address] [address] Lymphocyte abs 1.62 0.80 - 3.30 K/cumm NEEL Comment:Testing performed by : [address] [address] Monocyte abs 0.77 0.20 - 0.80 K/cumm NEEL Comment:Testing performed by : [address] [address] Eosinophil abs 0.18 0.00 - 0.50 K/cumm NEEL Comment:Testing performed by : [address] [address] Basophil abs 0.05 0.00 - 0.10 K/cumm NEEL Comment:Testing performed by : [address] [address] Neutrophil pct 65.9 % NEEL Comment: Interpretive Data Percent cell count reference ranges are not reported, since discordance with absolute values may lead to misinterpretation of CBC data. Current Interpretive Data was last revised on 2017. Testing performed by: [address] [address] Imm gran pct 0.5 % NEEL Comment: Interpretive Data Percent cell count reference ranges are not reported, since discordance with absolute values may lead to misinterpretation of CBC data. Current Interpretive Data was last revised on 2017. Testing performed by: [address] [address] Lymphocyte pct 20.8 % NEEL Comment: Interpretive Data Percent cell count reference ranges are not reported, since discordance with absolute values may lead to misinterpretation of CBC data. Current Interpretive Data was last revised on 2017. Testing performed by: [address] [address] Monocyte pct 9.9 % NEEL Comment: Interpretive Data Percent cell count reference ranges are not reported, since discordance with absolute values may lead to misinterpretation of CBC data. Current Interpretive Data was last revised on 2017. Testing performed by: [address] [address] Eosinophil pct 2.3 % NEEL Comment: Interpretive Data Percent cell count reference ranges are not reported, since discordance with absolute values may lead to misinterpretation of CBC data. Current Interpretive Data was last revised on 2017. Testing performed by: [address] [address] Basophil pct 0.6 % NEEL Comment: Interpretive Data Percent cell count reference ranges are not reported, since discordance with absolute values may lead to misinterpretation of CBC data. Current Interpretive Data was last revised on 2017. Testing performed by: [address] [id number] Blood 09/30/2024 4:01 PM CDT 09/30/2024 4:06 PM CDT us Radha Casas DO LAB BLOOD ORDERABLES Final Resu lt NEEL [address] [facility] Department [place] [address] * (ABNORMAL) CBC with auto differential (09/30/2024 4:01 PM CDT) WBC 7.77 3.80 - 9.90 K/cumm Comment:Testing performed by : [address] [address] Hgb 14.5 13.0 - 17.5 g/dL NEEL SMITH Comment:Testing performed by : [address] [address] Hct 43.0 38.9 - 50.3 % NEEL Comment:Testing performed by : [address] [address] Plt 278 150 - 400 K/cumm NEEL SMITH Comment:Testing performed by : [address] [address] MPV 9.8 9.1 - 12.3 fL NEEL SMITH Comment:Testing performed by : [address], [address] RBC 5.18 4.30 - 5.80 M/cumm NEEL SMITH Comment:Testing performed by : [address] [address] MCV 83.0 81.3 - 96.4 fL NEEL SMITH Comment:Testing performed by : [address] [address] MCH 28.0 27.1 - 33.3 pg NEEL SMITH Comment:Testing performed by : [address], [address] MCHC 33.7 32.3 - 35.7 g/dL NEEL SMITH Comment:Testing performed by : [address], [address] RDW CV 15.3(H) 11.1 - 14.9 % NEEL SMITH Comment:Testing performed by : [address] [address] RDW SD 46.4 35.7 - 48.1 fL NEEL SMITH Comment:Testing performed by : [address] [address] NRBC abs 0.00 0.00 - 0.01 K/cumm NEEL SMITH Comment:Testing performed by : [address] [address] Blood Venous blood specimen / Unknown 09/30/2024 4:01 PM CDT 09/30/2024 4:06 PM CDT us Radha Casas DO LAB BLOOD ORDERABLES Final Resu lt NEEL SMITH [address] [facility] Department [place] [address] * Lipase (09/30/2024 4:01 PM CDT) Lipase 51 10 - 99 Units/L Comment:Testing performed by : [address] [address] Blood Venous blood specimen / Unknown 09/30/2024 4:01 PM CDT 09/30/2024 4:06 PM CDT Radha Casas DO LAB BLOOD ORDERABLES Final Resu lt [facility] [address] [facility] Department [place] [address] * Comprehensive metabolic panel (09/30/2024 4:01 PM CDT) Sodium 141 135 - 145 mmol/L Comment:Testing performed by : [address] [address] Potassium, pl 4.0 3.3 - 4.9 mmol/L NEEL Comment:Testing performed by : [address] [address] Chloride 106 97 - 110 mmol/L NEEL Comment:Testing performed by : [address] [address] CO2 24 22 - 32 mmol/L NEEL Comment:Testing performed by : [address] [address] Anion gap 11 2 - 15 mmol/L NEEL Comment:Testing performed by : [address] [address] BUN 9 6 - 25 mg/dL NEEL Comment:Testing performed by : [address] [address] Creatinine 1.00 0.80 - 1.30 mg/dL NEEL Comment:Testing performed by : [address] [address] Glucose 107 70 - 199 mg/dL NEEL [...] was last revised 2022. Testing performed by: [address] [address] Calcium 9.6 8.5 - 10.3 mg/dL NEEL Comment:Testing performed by : [address] [address] Bilirubin, total 0.4 0.1 - 1.2 mg/dL NEEL Comment:Testing performed by : [address] [address] Protein, pl 7.1 6.5 - 8.5 g/dL NEEL Comment:Testing performed by : [address] [address] Albumin 4.3 3.5 - 5.0 g/dL NEEL Comment:Testing performed by : [address] [address] Alk phos 87 40 - 130 Units/L NEEL Comment:Testing performed by : [address] [address] ALT 25 7 - 55 Units/L NEEL Comment:Testing performed by : [address] [address] AST 25 10 - 50 Units/L NEEL Comment:Testing performed by : [address] [address] Blood 09/30/2024 4:01 PM CDT 09/30/2024 4:06 PM CDT us Radha Casas DO LAB BLOOD ORDERABLES Final Resu lt NEEL [address] [facility] Department [place] [address] from Last 3 Months Advance Directives For more information, please contact: [phone] * Full Code (Latest Code Status on [...] 12:50 PM 11/16/2023 7:54 PM 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 [address] [place] [address] Consulting Physician Gastroenterology 07/17/21 Vimal Woodruff MD [address] [facility] [address] [place] [address] Consulting Physician Gastroenterology 02/10/22
--- OUTSIDE RECORDS SUMMARY | 2024-12-06 15:50 | XMS_ITS | Referral Summary ---
Author Organization [facility] Address [address] [place] [phone] Care Team Providers Care Paper Steamer Name Role Phone Td Lopez MD Primary Care Provider + Angie Woodard MD Unavailable Vimal Woodruff MD Unavailable Encounters Date Type Department Care Team Description 12/01/2024 12:42 AM CDT - 12/03/2024 3:20 PM CDT Hospital Encounter [place] [place] [phone] [facility]omen[facility]as [facility] Khan, Fariah Habib, DO Jain, Anshu, MD Enteritis (Primary Dx); Abdominal pain; Cyclic vomiting syndrome; Hyperemesis Discharge Disposition: Discharge to home or self care 11/26/2024 2:02 AM CDT - 11/26/2024 4:25 AM CDT Emergency [facility] Emergency Department [address] [place] [id number] Blue Warren MD Abdominal pain (Primary Dx); Nausea and vomiting, unspecified vomiting type Discharge Disposition: Discharge to home or self care 10/20/2024 [facility] ED Outreach [facility] Care Organization [address] [place] [phone] Niki Burns MA 10/19/2024 [facility] ED Outreach [address] [address] Niki Burns MA 10/18/2024 1:45 PM CDT - 10/18/2024 7:54 PM CDT Emergency [facility] Emergency Department [address] [place] [phone] Oswaldo Burns MD Chronic abdominal pain (Primary Dx) Discharge Disposition: Discharge to home or self care 10/18/2024 [facility] ED Outreach [address] [address] Niki Burns MA 10/14/2024 12:14 AM CDT - 10/14/2024 2:13 AM CDT Emergency [facility] Emergency Department [address] [place] [phone] Enteritis (Primary Dx) Discharge Disposition: Discharge to home or self care 10/13/2024 4:36 AM CDT - 10/13/2024 10:20 AM CDT Emergency [address] [address] Rodney Mejia MD Journagan, Kevin, MD Abdominal pain (Primary Dx); History of pancreatitis; Chronic abdominal pain; Nausea and vomiting, unspecified vomiting type Discharge Disposition: Discharge to home or self care 10/08/2024 7:54 PM CDT - 10/08/2024 8:06 PM CDT Emergency [facility] Emergency Department [address] [place] [phone] Chronic abdominal pain (Primary Dx) Discharge Disposition: Discharge to home or self care 10/07/2024 5:29 AM CDT - 10/07/2024 8:34 AM T Emergency [address] [address] Jose Francisco Harper DO Prograis, Shannon Smith, MD Abdominal pain (Primary Dx); Chronic pancreatitis, unspecified pancreatitis type (HCC) Discharge Disposition: Discharge to home or self care 10/06/2024 11:00 AM CDT Office Visit [facility] [address] [phone] Td Lopez MD Abdominal pain (Primary Dx); Other chronic pancreatitis (HCC); Gastroesophageal reflux disease without esophagitis; Irritable bowel syndrome with both constipation and diarrhea 10/05/2024 DIPTI IP Outreach [address] [address] Lakshmi Garcia LPN 10/04/2024 Telephone [facility] [address] [phone] Td Lopez MD schedule DIPTI appt 10/02/2024 9:53 PM CDT - 10/03/2024 11:39 AM CDT Hospital Encounter [address] [place] [address] María Elena Calvo MD Medavaram, Atul, MD Sada, Kahmalia-Kalee Conceptia, MD Chowdhury, Farhanaz, MD Abdominal pain (Primary Dx); Acute pancreatitis, unspecified complication status, unspecified pancreatitis type; Pain, dental Discharge Disposition: Discharge to home or self care 09/30/2024 5:44 PM CDT - 09/30/2024 8:58 PM CDT Emergency [facility] Department [address] [place] [address] Radha Casas DO Abdominal pain (Primary Dx); [...] 03/25/2024 Assessment & Plan (03/25/2024 11:50 AM SMALL ARMS ARTILLERY REPAIRER): - suspect just muscle strain - [...] eliquis Assessment & Plan (03/20/2023 11:08 AM SMALL ARMS ARTILLERY REPAIRER): - restart eliquis due to life long need for anticoagulation History of thrombosis 03/20/2023 Assessment & Plan (09/25/2023 12:22 PM CDT): - stable - continue eliquis Assessment & Plan (03/20/2023 11:08 AM SMALL ARMS ARTILLERY REPAIRER): - restart eliquis due to life [...] famotidine Assessment & Plan (03/20/2023 11:08 AM SMALL ARMS ARTILLERY REPAIRER): - stable - continue current medication [...] eval. Assessment & Plan (03/25/2024 11:49 AM SMALL ARMS ARTILLERY REPAIRER): - ref to derm for eval [...] pain Assessment & Plan (03/25/2024 11:49 AM SMALL ARMS ARTILLERY REPAIRER): - poor control - continue hyosciamine, famotidine, zofran - ref to GI for continued treatment Assessment & Plan (03/20/2023 11:07 AM SMALL ARMS ARTILLERY REPAIRER): - stable - continue current medication [...] prn Assessment & Plan (07/15/2019 11:44 AM SMALL ARMS ARTILLERY REPAIRER): - stable - continue bentyl and [...] medication Assessment & Plan (07/15/2019 11:44 AM SMALL ARMS ARTILLERY REPAIRER): - stable - continue creon Annual [...] able Assessment & Plan (07/15/2019 11:46 AM SMALL ARMS ARTILLERY REPAIRER): - encourage healthy diet, exercise - check labs - encouraged quitting smoking Enteritis 02/18/2019 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 Assessment & Plan (07/15/2019 11:37 AM SMALL ARMS ARTILLERY REPAIRER): - encouraged pt to quit smoking [...] GI Assessment & Plan (03/20/2023 11:07 AM SMALL ARMS ARTILLERY REPAIRER): - stable - continue current medication [...] 09/17/202209/08 Assessment & Plan (03/20/2023 11:08 AM SMALL ARMS ARTILLERY REPAIRER): - stable off meds - will [...] 09/25/2023 Assessment & Plan (03/26/2021 11:41 AM SMALL ARMS ARTILLERY REPAIRER): - stable today - continue current [...] lexapro Assessment & Plan (07/15/2019 11:38 AM SMALL ARMS ARTILLERY REPAIRER): - stable - continue current plan [...] medication Assessment & Plan (07/15/2019 11:38 AM SMALL ARMS ARTILLERY REPAIRER): - stable - continue omeprazole and carafate Viral illness 07/08/2019 02/12/2021 Assessment & Plan (07/09/2019 9:12 AM SMALL ARMS ARTILLERY REPAIRER): Medrol Dosepak as directed. Recommended Mucinex [...] this as this is not a viable care home solution - will ref to pain management [...] medication Assessment & Plan (07/15/2019 11:36 AM SMALL ARMS ARTILLERY REPAIRER): - controlled - continue current plan [...] drink = 0.6 oz pur e alcohol) [facility] Utilities Answer Date Recorded In the past 12 months has e [employer], gas, oil, or water [employer] threatened to shut off services in your [...] often do you attend chur ch or episcopalian services? Never 12/01/2024 Do you belong to any clubs o r organizations such as anabaptism groups, unions, fraternal or athletic groups, or [...] in a fpc (including now)? No 09/21/2023 PHQ-9 Answer Date [...] time in the past [address] [facility], were you homeless or living in a fpc (including now)? No 12/01/2024 Personal Safety Answer Date Recorded Have you ever been in or are you currently in a harmful physical or emotional relationship or is someone making you feel afraid or unsafe? Denies 11/30/2024 Sex and Gender Information Value Date Recorded Sex Assigned at Not on file Legal Sex Male 3:38 AM SMALL ARMS ARTILLERY REPAIRER Gender Identity Not on file Sexual [...] on file Medical Devices Explanted Type Area Metal Bonding Helper Device Identifier Shelf Expiration Date Model / Serial / Lot [employer] [id number] Connell Flexi-Stent 7fr 5cm Small Pigtail Flexible .035in Stent - [id number] Implanted:Qty: 1 on 09/18/2018 by Vimal Woodruff MD at [facility] Explanted:Qty: 1 on 09/20/2018 at [facility] Stent N/A: Pancreas [employer] 06/10/2023 [id number] / / [id number] Conmed Gina [id number] Portis Viabil 10mm 8.5fr 6cm 200cm Fully Covered Self Expand Pull - [id number] - [id number] Implanted:Qty: 1 on 09/18/2018 by Vimal Woodruff MD at [facility] Explanted:Qty: 1 on 09/20/2018 at [facility] Stent N/A: Bile Duct Conmed Gina 06/29/2021 [id number] / [id number] / [employer] Connell Flexi-Stent 7fr 9cm Small Pigtail Flexible .035in Stent [id number] - [id number] Implanted:Qty: 1 on 02/07/2022 by Vimal Woodruff MD at [facility] Explanted:Qty: 1 on 02/10/2022 by Vimal Woodruff MD at [facility] Stent N/A: Pancreas [employer] 09/07/2026 [id number] / / [id number] [employer] Gina Wallflex 10mm X 60mm Fully Covered Biliary [id number] - [id number] Implanted:Qty: 1 on 02/07/2022 by Vimal Woodruff MD at [facility] Explanted:Qty: 1 on 02/10/2022 by Vimal Woodruff MD at [facility] Stent N/A: Bile Duct [employer] Gina 11/04/2023 [id number] / / [id number] [employer] Connell Flexi-Stent 7fr 9cm Small Pigtail Flexible .035in Stent [id number] - [id number] Implanted:Qty: 1 on 09/21/2023 by Vimal Woodruff MD at [facility] Explanted:Qty: 1 on 09/23/2023 by Vimal Woodruff MD at [facility] Stent N/A: Pancreas [employer] 03/11/2028 [id number] / / [id number] Description:Not present at b eginning of case. Self migrated out [employer] Gina Wallflex 10mm X 60mm Fully Covered Biliary [id number] - [id number] Implanted:Qty: 1 on 09/21/2023 by Vimal Woodruff MD at [facility] Explanted:Qty: 1 on 09/23/2023 by Vimal Woodruff MD at [facility] Stent N/A: Bile Duct [employer] Gina 08/02/2025 [id number] / / [id number] Procedures Procedure Name Priority Date/Time Associated Diagnosis Comments [place] [facility] ILL/INJURED PATIENT INIT 30-74 MIN [...] CDT from Last 3 Months Results * [place] [facility] ILL/INJURED PATIENT INIT 30-74 MIN [...] medical record. us Pranav Fernandez MD [facility] E ORDERABLES Final Result * CT Abdomen [...] MD LAB BLOOD ORDERABLES Final R esult [facility] [address] Department [place] [address] * (ABNORMAL) Differential, auto (12/01/2024 1:49 AM CDT) Neutrophil abs 8.27(H) 1.50 - 6.50 K/cumm Imm gran abs 0.04 0.00 - 0.10 K/cumm [facility] Lymphocyte abs 1.58 0.80 - 3.30 K/cumm [facility] Monocyte abs 0.97(H) 0.20 - 0.80 K/cumm [facility] Eosinophil abs 0.03 0.00 - 0.50 K/cumm [facility] Basophil abs 0.05 0.00 - 0.10 K/cumm [facility] Neutrophil pct 75.5 % [facility] Comment: Interpretive Data Percent cell count reference ranges are not reported, since discordance with absolute values may lead to misinterpretation of CBC data. Current Interpretive Data was last revised on 2017. Imm gran pct 0.4 % [facility] Comment: Interpretive Data Percent cell count reference ranges are not reported, since discordance with absolute values may lead to misinterpretation of CBC data. Current Interpretive Data was last revised on 2017. Lymphocyte pct 14.4 % [facility] Comment: Interpretive Data Percent cell count reference ranges are not reported, since discordance with absolute values may lead to misinterpretation of CBC data. Current Interpretive Data was last revised on 2017. Monocyte pct 8.9 % [facility] Comment: Interpretive Data Percent cell count reference ranges are not reported, since discordance with absolute values may lead to misinterpretation of CBC data. Current Interpretive Data was last revised on 2017. Eosinophil pct 0.3 % [facility] Comment: Interpretive Data Percent cell count reference ranges are not reported, since discordance with absolute values may lead to misinterpretation of CBC data. Current Interpretive Data was last revised on 2017. Basophil pct 0.5 % [facility] Comment: Interpretive Data Percent cell count reference ranges are not reported, since discordance with absolute values may lead to misinterpretation of CBC data. Current Interpretive Data was last revised on 2017. Blood 12/01/2024 1:49 AM CDT 12/01/2024 2:08 AM CDT Domenic Arias MD LAB BLOOD ORDERABLES Final R esult Performing Organization Address [facility]/ZIP Co de Phone Number [facility] [address] [place] [address] * (ABNORMAL) CBC with auto differential (12/01/2024 1:49 AM CDT) WBC 10.94(H) 3.80 - 9.90 K/cumm Hgb 13.5 13.0 - 17.5 g/dL [facility] Hct 40.4 38.9 - 50.3 % [facility] Plt 242 150 - 400 K/cumm [facility] MPV 10.5 9.1 - 12.3 fL [facility] RBC 4.59 4.30 - 5.80 M/cumm [facility] MCV 88.0 81.3 - 96.4 fL [facility] MCH 29.4 27.1 - 33.3 pg [facility] MCHC 33.4 32.3 - 35.7 g/dL [facility] RDW CV 15.7(H) 11.1 - 14.9 % [facility] RDW SD 50.5(H) 35.7 - 48.1 fL [facility] NRBC abs 0.00 0.00 - 0.01 K/cumm [facility] Blood 12/01/2024 1:49 AM CDT 12/01/2024 2:08 AM CDT Domenic Arias MD LAB BLOOD ORDERABLES Final R esult Performing Organization Address City/[facility]/ZIP Co de Phone Number [facility] [address] [place] [phone] * Lipase (12/01/2024 1:49 AM CDT) Pathologist [facility] Lipase 23 10 - 99 Units/L Blood 12/01/2024 1:49 AM CDT 12/01/2024 2:08 AM CDT us Domenic Arias MD LAB BLOOD ORDERABLES Final R esult [facility] [address] Department [place] [address] * (ABNORMAL) Comprehensive metabolic panel (12/01/2024 1:49 AM CDT) Pathologist [facility] Sodium 142 135 - 145 mmol/L Potassium, pl 4.2 3.3 - 4.9 mmol/L [facility] Chloride 106 97 - 110 mmol/L [facility] CO2 23 22 - 32 mmol/L [facility] Anion gap 13 2 - 15 mmol/L [facility] BUN 6 6 - 25 mg/dL [facility] Creatinine 0.86 0.80 - 1.30 mg/dL [facility] Glucose 99 70 - 199 mg/dL [facility] Comment: Interpretive Data Fasting glucose >/= 126 [...] 2022. Calcium 9.3 8.5 - 10.3 mg/dL [facility] Bilirubin, total 0.6 0.1 - 1.2 mg/dL [facility] Protein, pl 6.2(L) 6.5 - 8.5 g/dL [facility] Albumin 4.0 3.5 - 5.0 g/dL [facility] Alk phos 76 40 - 130 Units/L [facility] ALT 17 7 - 55 Units/L [facility] AST 20 10 - 50 Units/L [facility] Blood 12/01/2024 1:49 AM CDT 12/01/2024 2:08 AM CDT Domenic Arias MD LAB BLOOD ORDERABLES Final R esult Performing Organization Address [facility] Co de Phone Number [facility] [address] Department [place] [address] * ECG 12 lead (11/30/2024 10:57 PM CDT) 11/30/2024 10:5 7 PM CDT Narrative [facility] 12/01/2024 7:47 AM CDT Vent Rate: 64 bpm RR Interval: 926 msec W[place] Interval: 91 msec QRS Duration: 104 msec QT Interval: 382 msec QTC Interval: 392 msec P-R-T [place]: 12 - 72 - 72 degrees IMPRESSION: SINUS RHYTHM WITH SINUS ARRHYTHMIA WITH SHORT WY INTERVAL INCOMPLETE RIGHT BUNDLE BRANCH BLOCK BORDERLINE ECG Electronically Signed By: Mich Quintana MD PhD Domenic Arias MD ECG ORDERABLES Final Result Performing Organization Address [facility] de Phone Number [facility] ARI Network Services [facility] * CT Abdomen Pelvis W Contrast [...] clear. Heart size normal. No effusion. LIVER/BILIARY: Betw-gx-ixbolknf steatosis. Unchanged pneumobilia. GALLBLADDER: Absent. SPLEEN: Normal. [...] Aryan Jovel M.D. AR: GIOVANNA Report ID: [id number] Reading Location: [id number] Procedure Note Aryan Jovel MD - 11/26/2024 [...] clear. Heart size normal. No effusion. LIVER/BILIARY: Ohle-kc-biugniey steatosis. Unchanged pneumobilia. GALLBLADDER: Absent. SPLEEN: Normal. [...] Aryan Jovel M.D. AR: GIOVANNA Report ID: [id number] Reading Location: [place] [address] us Blue Warren MD IMG CT PROCEDURES F inal Result * Troponin T high-sensitivity 2-hour (11/26/2024 1:13 AM CDT) Trop T hs 8 <=22 ng/L Comment: Interpretive Data For further hscTnT resources including the diagnostic algorithm and an aid in interpretation, copy and paste this link: https://nrl.testcatalog.org/show/hsTrop Current Interpretive Data last revised 2020. Testing performed by: [address] [address] Trop T hs delta -3 ng/L NEEL SMITH Comment:Testing performed by : [address] [address] Trop T hs interp Insignificant NEEL SMITH Comment:Testing performed by : [address] [address] Blood 11/26/2024 1:13 AM CDT 11/26/2024 1:25 AM CDT us Blue Warren MD LAB BLOOD ORDERABLE S Final Result NEEL [address] [facility] Department [place] [address] * Urinalysis reflex to microscopic and culture Urine (11/25/2024 11:13 PM CDT) Color, ur Yellow Yellow Comment:Testing performed by : [address] [address] Clarity, ur Clear Clear NEEL Comment:Testing performed by : [address] [address] Specific gravity, ur 1.020 1.003 - 1.030 NEEL Comment:Testing performed by : [address], [place]., [address] pH, urine 6.0 NEEL Comment: Interpretive Data U rine pH is affected by diet, medications, systemic acid-base disturbances, and renal tubular function. pH may affect urinary stone formation. For example, urine pH below 6.0 may help reduce the tendency for calcium phosphate stones and pH greater than 6.0 may reduce the tendency for uric acid stone formation. Source: [facility] [employer] Current Interpretive Data was last revised on 2017 Testing performed by: [address] [address] Protein, ur ql Negative Negative NEEL Comment:Testing performed by : [address] [address] Glucose, ur ql Negative Negative NEEL Comment:Testing performed by : [address], [place]., [address] Ketones, ur Negative Negative NEEL Comment:Testing performed by : [address] [address] Bilirubin, ur Negative Negative NEEL Comment:Testing performed by : [address] [address] Blood, ur Negative Negative NEEL Comment:Testing performed by : [address] [address] Urobilinogen, ur <2.0 <2.0 mg/dL NEEL Comment:Testing performed by : [address] [address] Nitrite, ur Negative Negative NEEL Comment:Testing performed by : [address] [address] Leukocyte esterase, ur Negative Negative NEEL Comment:Testing performed by : [address] [address] UA reflex comment Reflex conditions for microscopic UA and culture not met. NEEL Comment:Testing performed by : [address] [address] Urine 11/25/2024 11:1 3 PM CDT 11/25/2024 11:24 PM CDT Blue Warren MD LAB MICROBIOLOGY - GENERAL ORDERABLES Final Result Performing Organization Address [facility] de Phone Number NEEL [address] [address] * Troponin T high-sensitivity series (baseline, 2hr, 4hr, 6hr) (11/25/2024 11:06 PM CDT) Pathologist [facility] Trop T hs 11 <=22 ng/L Comment: Interpretive Data For further hscTnT resources including the diagnostic algorithm and an aid in interpretation, copy and paste this link: https://nrl.testcatalog.org/show/hsTrop Current Interpretive Data last revised 2020. Testing performed by: [address] [address] Blood 11/25/2024 11:0 6 PM CDT 11/25/2024 11:24 PM CDT Blue Warren MD LAB BLOOD ORDERABLE S Final Result Performing Organization Address [facility] de Phone Number [address] [place] [address] * eGFR (11/25/2024 11:06 PM CDT) eGFR [...] last reviewed 2021. Testing performed by: [address] [address] Blood 11/25/2024 11:0 6 PM CDT 11/25/2024 11:24 PM CDT us Blue Warren MD LAB BLOOD ORDERABLE S Final Result [facility] Department [place] [address] * (ABNORMAL) Differential, auto (11/25/2024 11:06 PM CDT) Neutrophil abs 13.59(H) 1.50 - 6.50 K/cumm Comment:Testing performed by : [address] [address] Imm gran abs 0.11(H) 0.00 - 0.10 K/cumm NEEL Comment:Testing performed by : [address] [address] Lymphocyte abs 1.24 0.80 - 3.30 K/cumm NEEL Comment:Testing performed by : [address] [address] Monocyte abs 0.90(H) 0.20 - 0.80 K/cumm NEEL Comment:Testing performed by : [address] [address] Eosinophil abs 0.02 0.00 - 0.50 K/cumm NEEL Comment:Testing performed by : [address] [address] Basophil abs 0.05 0.00 - 0.10 K/cumm NEEL Comment:Testing performed by : [facility], [address] [place] [address]., [address] Neutrophil pct 85.4 % NEEL Comment: Interpretive Data Percent cell count reference ranges are not reported, since discordance with absolute values may lead to misinterpretation of CBC data. Current Interpretive Data was last revised on 2017. Testing performed by: [address] [address] Imm gran pct 0.7 % NEEL Comment: Interpretive Data Percent cell count reference ranges are not reported, since discordance with absolute values may lead to misinterpretation of CBC data. Current Interpretive Data was last revised on 2017. Testing performed by: [address] [address] Lymphocyte pct 7.8 % NEEL Comment: Interpretive Data Percent cell count reference ranges are not reported, since discordance with absolute values may lead to misinterpretation of CBC data. Current Interpretive Data was last revised on 2017. Testing performed by: [address] [address] Monocyte pct 5.7 % NEEL Comment: Interpretive Data Percent cell count reference ranges are not reported, since discordance with absolute values may lead to misinterpretation of CBC data. Current Interpretive Data was last revised on 2017. Testing performed by: [address] [address] Eosinophil pct 0.1 % NEEL Comment: Interpretive Data Percent cell count reference ranges are not reported, since discordance with absolute values may lead to misinterpretation of CBC data. Current Interpretive Data was last revised on 2017. Testing performed by: [address] [address] Basophil pct 0.3 % [facility] Comment: Interpretive Data Percent cell count reference ranges are not reported, since discordance with absolute values may lead to misinterpretation of CBC data. Current Interpretive Data was last revised on 2017. Testing performed by: [address] [address] Blood 11/25/2024 11:0 6 PM CDT 11/25/2024 11:24 PM CDT us Blue Warren MD LAB BLOOD ORDERABLE S Final Result NEEL [address] [facility] Department [place] [address] * (ABNORMAL) CBC with auto differential (11/25/2024 11:06 PM CDT) [facility] WBC 15.91(H) 3.80 - 9.90 K/cumm Comment:Testing performed by : [address] [address] Hgb 15.1 13.0 - 17.5 g/dL NEEL Comment:Testing performed by : [address] [address] Hct 44.2 38.9 - 50.3 % NEEL Comment:Testing performed by : [address] [address] Plt 300 150 - 400 K/cumm NEEL Comment:Testing performed by : [address] [address] MPV 9.7 9.1 - 12.3 fL NEEL Comment:Testing performed by : [address] [address] RBC 5.26 4.30 - 5.80 M/cumm NEEL Comment:Testing performed by : [address] [address] MCV 84.0 81.3 - 96.4 fL NEEL Comment:Testing performed by : [address] [address] MCH 28.7 27.1 - 33.3 pg NEEL SMITH Comment:Testing performed by : [address] [address] MCHC 34.2 32.3 - 35.7 g/dL NEEL Comment:Testing performed by : [address] [address] RDW CV 15.2(H) 11.1 - 14.9 % NEEL SMITH Comment:Testing performed by : [address] [address] RDW SD 46.3 35.7 - 48.1 fL NEEL SMITH Comment:Testing performed by : [address] [address] NRBC abs 0.00 0.00 - 0.01 K/cumm NEEL SMITH Comment:Testing performed by : [address] [address] Blood Venous blood specimen / Unknown 11/25/2024 11:06 PM CDT 11/25/2024 11:24 PM CDT Blue Warren MD LAB BLOOD ORDERABLE S Final Result Performing Organization Address City/[facility]/ZIP Co de Phone Number [address] [place] [address] * Lipase (11/25/2024 11:06 PM CDT) Pathologist [facility] Lipase 24 10 - 99 Units/L Comment:Testing performed by : [address] [address] Blood Venous blood specimen / Unknown 11/25/2024 11:06 PM CDT 11/25/2024 11:24 PM CDT us Blue Warren MD LAB BLOOD ORDERABLE S Final Result Performing Organization Address City/[facility] Co de Phone Number [address] [address] * (ABNORMAL) Comprehensive metabolic panel (11/25/2024 11:06 PM CDT) Pathologist [facility] Sodium 140 135 - 145 mmol/L Comment:Testing performed by : [address] [address] Potassium, pl 4.1 3.3 - 4.9 mmol/L NEEL SMITH Comment:Testing performed by : [address] [address] Chloride 102 97 - 110 mmol/L NEEL Comment:Testing performed by : [address], [place]., [address] CO2 24 22 - 32 mmol/L ENEL Comment:Testing performed by : [address], [place]., [address] Anion gap 14 2 - 15 mmol/L NEEL Comment:Testing performed by : [address], [place]., [address] BUN 10 6 - 25 mg/dL [facility] Comment:Testing performed by : [address], [place]., [address] Creatinine 1.01 0.80 - 1.30 mg/dL NEEL Comment:Testing performed by : [address], [place]., [address] Glucose 115 70 - 199 mg/dL [facility] Comment: Interpretive Data Fasting glucose >/= [...] last revised 2022. Testing performed by: [address] [address] Calcium 10.5(H) 8.5 - 10.3 mg/dL [facility] Comment:Testing performed by : [address] [address] Bilirubin, total 0.4 0.1 - 1.2 mg/dL NEEL Comment:Testing performed by : [address] [address] Protein, pl 7.4 6.5 - 8.5 g/dL NEEL Comment:Testing performed by : [address], [place]., [address] Albumin 4.5 3.5 - 5.0 g/dL NEEL SMITH Comment:Testing performed by : [facility], [address] [place] [address]., [address] Alk phos 89 40 - 130 Units/L NEEL Comment:Testing performed by : [address] [address] ALT 19 7 - 55 Units/L NEEL SMITH Comment:Testing performed by : [address] [address] AST 21 10 - 50 Units/L NEEL Comment:Testing performed by : [address], [address] Blood 11/25/2024 11:0 6 PM CDT 11/25/2024 11:24 PM CDT us Blue Warren MD LAB BLOOD ORDERABLE S Final Result Performing Organization Address City/[facility]/ZIP Co de Phone Number [place] [id number] [facility] Department [place] [address] * ECG 12 lead (11/25/2024 11:02 PM CDT) Ventricular Rate EKG/Min 74 BPM [facility] Atrial Rate 74 BPM [facility] WY-Interval (MSEC) 80 ms [facility] QRS-Interval (MSEC) 96 ms [facility] QT-Interval (MSEC) 354 ms [facility] QTc 392 ms [facility] P [place] -18 degrees [facility] R [place] 32 degrees [facility] T [place] 56 degrees [facility] Diagnosis Sinus rhythm with sinus arrhythmia with short [place] Otherwise normal ECG When compared with ECG of 13-OCT-2024 03:54, No significant change was found Confirmed by DARIEL CARLOS M.D. ([id number]) on 11/26/2024 10:02:21 PM [facility] 11/25/2024 11:0 2 PM CDT 11/26/2024 10:02 PM CDT us Blue Warren MD ECG ORDERABLES Fin al Result [facility] * CT Abdomen Pelvis W Contrast [...] ur Yellow Yellow Clarity, ur Turbid(A) Clear [facility] Specific gravity, ur 1.014 1.003 - 1.030 [facility] pH, urine 7.5 [facility] Comment: Interpretive Data U rine pH is affected by diet, medications, systemic acid-base disturbances, and renal tubular function. pH may affect urinary stone formation. For example, urine pH below 6.0 may help reduce the tendency for calcium phosphate stones and pH greater than 6.0 may reduce the tendency for uric acid stone formation. Source: [facility] Current Interpretive Data was last revised on 2017 Protein, ur ql Trace Negative [facility] Glucose, ur ql Negative Negative [facility] Ketones, ur 1+(A) Negative [facility] Bilirubin, ur Negative Negative [facility] Blood, ur Negative Negative [facility] Urobilinogen, ur <2.0 <2.0 mg/dL [facility] Nitrite, ur Negative Negative [facility] Leukocyte esterase, ur Negative Negative [facility] UA reflex comment Reflex conditions for microscopic UA and culture not met. [facility] Urine 10/18/2024 3:34 PM CDT 10/18/2024 3:34 PM CDT Oswaldo Burns MD LAB MICROBIOLOGY - GENERAL ORDERABLES Final Result [facility] [address] Department [place] [address] * eGFR (10/18/2024 12:48 PM CDT) Pathologist [facility] eGFR >90 >=60 mL/min/1. 73 [...] LAB BLOOD ORDERABLES Final R esult NEEL [facility] [address] [place] [address] * (ABNORMAL) Differential, auto (10/18/2024 12:48 PM CDT) Pathologist [facility] Neutrophil abs 12.53(H) 1.50 - 6.50 K/cumm Imm gran abs 0.08 0.00 - 0.10 K/cumm [facility] Lymphocyte abs 1.17 0.80 - 3.30 K/cumm [facility] Monocyte abs 1.45(H) 0.20 - 0.80 K/cumm [facility] Eosinophil abs 0.07 0.00 - 0.50 K/cumm [facility] Basophil abs 0.07 0.00 - 0.10 K/cumm [facility] Neutrophil pct 81.5 % [facility] Comment: Interpretive Data Percent cell count reference ranges are not reported, since discordance with absolute values may lead to misinterpretation of CBC data. Current Interpretive Data was last revised on 2017. Imm gran pct 0.5 % [facility] Comment: Interpretive Data Percent cell count reference ranges are not reported, since discordance with absolute values may lead to misinterpretation of CBC data. Current Interpretive Data was last revised on 2017. Lymphocyte pct 7.6 % [facility] Comment: Interpretive Data Percent cell count reference ranges are not reported, since discordance with absolute values may lead to misinterpretation of CBC data. Current Interpretive Data was last revised on 2017. Monocyte pct 9.4 % [facility] Comment: Interpretive Data Percent cell count reference ranges are not reported, since discordance with absolute values may lead to misinterpretation of CBC data. Current Interpretive Data was last revised on 2017. Eosinophil pct 0.5 % [facility] Comment: Interpretive Data Percent cell count reference ranges are not reported, since discordance with absolute values may lead to misinterpretation of CBC data. Current Interpretive Data was last revised on 2017. Basophil pct 0.5 % [facility] Comment: Interpretive Data Percent cell count reference ranges are not reported, since discordance with absolute values may lead to misinterpretation of CBC data. Current Interpretive Data was last revised on 2017. Blood 10/18/2024 12:4 8 PM CDT 10/18/2024 1:27 PM CDT us Oswaldo Bursn MD LAB BLOOD ORDERABLES Final Result [facility] [address] Department of Laboratories [place], [place] [id number] * (ABNORMAL) CBC with auto differential (10/18/2024 12:48 PM CDT) WBC 15.37(H) 3.80 - 9.90 K/cumm Hgb 14.6 13.0 - 17.5 g/dL [facility] Hct 43.2 38.9 - 50.3 % [facility] Plt 353 150 - 400 K/cumm [facility] MPV 10.0 9.1 - 12.3 fL [facility] RBC 5.10 4.30 - 5.80 M/cumm [facility] MCV 84.7 81.3 - 96.4 fL [facility] MCH 28.6 27.1 - 33.3 pg [facility] MCHC 33.8 32.3 - 35.7 g/dL [facility] RDW CV 15.8(H) 11.1 - 14.9 % [facility] RDW SD 48.2(H) 35.7 - 48.1 fL [facility] NRBC abs 0.00 0.00 - 0.01 K/cumm [facility] Blood Venous blood specimen / Unknown 10/18/2024 12:48 PM CDT 10/18/2024 1:27 PM CDT Oswaldo Burns MD LAB BLOOD ORDERABLES Final Result Performing Organization Address City/[facility]/ZIP Co de Phone Number [facility] [address] [facility] [place] [employer] [place] [address] * Lipase (10/18/2024 12:48 PM CDT) Pathologist [facility] Lipase 36 10 - 99 Units/L Blood Venous blood specimen / Unknown 10/18/2024 12:48 PM CDT 10/18/2024 1:27 PM CDT Oswaldo Burns MD LAB BLOOD ORDERABLES Final Result [facility] [address] [place] [place] [address] * (ABNORMAL) Comprehensive metabolic panel (10/18/2024 12:48 PM CDT) Pathologist [facility] Sodium 141 135 - 145 mmol/L Potassium, pl 3.8 3.3 - 4.9 mmol/L [facility] Chloride 103 97 - 110 mmol/L [facility] CO2 22 22 - 32 mmol/L [facility] Anion gap 16(H) 2 - 15 mmol/L [facility] BUN 9 6 - 25 mg/dL [facility] Creatinine 1.01 0.80 - 1.30 mg/dL [facility] Glucose 132 70 - 199 mg/dL [facility] Comment: Interpretive Data Fasting glucose >/= 126 [...] 2022. Calcium 9.8 8.5 - 10.3 mg/dL [facility] Bilirubin, total 0.7 0.1 - 1.2 mg/dL [facility] Protein, pl 7.3 6.5 - 8.5 g/dL [facility] Albumin 4.4 3.5 - 5.0 g/dL [facility] Alk phos 83 40 - 130 Units/L [facility] ALT 22 7 - 55 Units/L [facility] AST 28 10 - 50 Units/L [facility] Blood 10/18/2024 12:4 8 PM CDT 10/18/2024 1:27 PM CDT us Oswaldo Burns MD LAB BLOOD ORDERABLES Final Result [facility] [address] [place] [address] * Lipase - Add on lab test (10/14/2024 4:29 AM CDT) Acceptable Yes Blood 10/14/2024 4:29 AM CDT 10/14/2024 4:29 AM CDT Narrative NEEL TURNER - 10/14/2024 4:30 AM CDT Name of Test->Lipase us Yusef Bear MD LAB BLOOD ORDERABLES Final Result [facility] [address] [place] [address] * CT Abdomen Pelvis W Contrast (10/14/2024 1:38 AM CDT) Anatomical Region Laterality Modality Body N/A Computed Tomogra phy 10/14/2024 1:29 AM CDT Impressions 10/14/2024 9:11 AM CDT No acute abnormality in the abdomen or pelvis. No pancreatitis. For the purposes of research quality assurance specialist, this study was initially interpreted by [...] pelvis. No pancreatitis. For the purposes of research quality assurance specialist, this study was initially interpreted by [...] ur Yellow Yellow Clarity, ur Clear Clear [facility] Specific gravity, ur 1.010 1.003 - 1.030 [facility] pH, urine 6.5 [facility] Comment: Interpretive Data U rine pH is affected by diet, medications, systemic acid-base disturbances, and renal tubular function. pH may affect urinary stone formation. For example, urine pH below 6.0 may help reduce the tendency for calcium phosphate stones and pH greater than 6.0 may reduce the tendency for uric acid stone formation. Source: [facility] Current Interpretive Data was last revised on 2017 Protein, ur ql Negative Negative [facility] Glucose, ur ql Negative Negative [facility] Ketones, ur 1+(A) Negative [facility] Bilirubin, ur Negative Negative [facility] Blood, ur Negative Negative [facility] Urobilinogen, ur <2.0 <2.0 mg/dL [facility] Nitrite, ur Negative Negative [facility] Leukocyte esterase, ur Negative Negative [facility] UA reflex comment Reflex conditions for microscopic UA and culture not met. [facility] Urine 10/13/2024 10:1 0 PM CDT 10/13/2024 10:11 PM CDT Abdiel Donaldson MD LAB MICROBIOLOGY - GENERAL O RDERABLES Final Result [facility] [address] Department [place] [address] * eGFR (10/13/2024 10:06 PM CDT) eGFR [...] MD LAB BLOOD ORDERABLES Final R esult [facility] [address] Department [place] [address] * (ABNORMAL) Differential, auto (10/13/2024 10:06 PM CDT) Neutrophil abs 11.31(H) 1.50 - 6.50 K/cumm Imm gran abs 0.06 0.00 - 0.10 K/cumm [facility] Lymphocyte abs 1.47 0.80 - 3.30 K/cumm [facility] Monocyte abs 1.09(H) 0.20 - 0.80 K/cumm [facility] Eosinophil abs 0.07 0.00 - 0.50 K/cumm [facility] Basophil abs 0.04 0.00 - 0.10 K/cumm [facility] Neutrophil pct 80.5 % [facility] Comment: Interpretive Data Percent cell count reference ranges are not reported, since discordance with absolute values may lead to misinterpretation of CBC data. Current Interpretive Data was last revised on 2017. Imm gran pct 0.4 % [facility] Comment: Interpretive Data Percent cell count reference ranges are not reported, since discordance with absolute values may lead to misinterpretation of CBC data. Current Interpretive Data was last revised on 2017. Lymphocyte pct 10.5 % [facility] Comment: Interpretive Data Percent cell count reference ranges are not reported, since discordance with absolute values may lead to misinterpretation of CBC data. Current Interpretive Data was last revised on 2017. Monocyte pct 7.8 % [facility] Comment: Interpretive Data Percent cell count reference ranges are not reported, since discordance with absolute values may lead to misinterpretation of CBC data. Current Interpretive Data was last revised on 2017. Eosinophil pct 0.5 % [facility] Comment: Interpretive Data Percent cell count reference ranges are not reported, since discordance with absolute values may lead to misinterpretation of CBC data. Current Interpretive Data was last revised on 2017. Basophil pct 0.3 % [facility] Comment: Interpretive Data Percent cell count reference ranges are not reported, since discordance with absolute values may lead to misinterpretation of CBC data. Current Interpretive Data was last revised on 2017. Blood 10/13/2024 10:0 6 PM CDT 10/13/2024 10:43 PM CDT us Abdiel Donaldson MD LAB BLOOD ORDERABLES Final R esult [facility] [address] Department [place] [address] * (ABNORMAL) CBC with auto differential (10/13/2024 10:06 PM CDT) WBC 14.04(H) 3.80 - 9.90 K/cumm Hgb 14.1 13.0 - 17.5 g/dL [facility] Hct 43.6 38.9 - 50.3 % [facility] Plt 312 150 - 400 K/cumm [facility] MPV 10.3 9.1 - 12.3 fL [facility] RBC 5.01 4.30 - 5.80 M/cumm [facility] MCV 87.0 81.3 - 96.4 fL [facility] MCH 28.1 27.1 - 33.3 pg [facility] MCHC 32.3 32.3 - 35.7 g/dL [facility] RDW CV 15.6(H) 11.1 - 14.9 % [facility] RDW SD 49.1(H) 35.7 - 48.1 fL [facility] NRBC abs 0.00 0.00 - 0.01 K/cumm [facility] Blood Venous blood specimen / Unknown 10/13/2024 10:06 PM CDT 10/13/2024 10:43 PM CDT Abdiel Donaldson MD LAB BLOOD ORDERABLES Final R esult Performing Organization Address City/[facility]/ZIP Co de Phone Number [facility] [address] [place] [place] [address] * (ABNORMAL) Lipase (10/13/2024 10:06 PM CDT) Pathologist [facility] Lipase 119(H) 10 - 99 Units/L Blood 10/13/2024 10:0 6 PM CDT 10/13/2024 10:43 PM CDT Abdiel Donaldson MD LAB BLOOD ORDERABLES Final R esult Performing Organization Address [facility] Co de Phone Number [facility] [address] [place] [place] [address] * (ABNORMAL) Comprehensive metabolic panel (10/13/2024 10:06 PM CDT) [facility] Sodium 144 135 - 145 mmol/L Potassium, pl 3.7 3.3 - 4.9 mmol/L [facility] Chloride 104 97 - 110 mmol/L [facility] CO2 22 22 - 32 mmol/L [facility] Anion gap 18(H) 2 - 15 mmol/L [facility] BUN 7 6 - 25 mg/dL [facility] Creatinine 0.91 0.80 - 1.30 mg/dL [facility] Glucose 95 70 - 199 mg/dL [facility] Comment: Interpretive Data Fasting glucose >/= 126 [...] 2022. Calcium 9.3 8.5 - 10.3 mg/dL [facility] Bilirubin, total 0.4 0.1 - 1.2 mg/dL [facility] Protein, pl 7.0 6.5 - 8.5 g/dL [facility] Albumin 4.5 3.5 - 5.0 g/dL [facility] Alk phos 82 40 - 130 Units/L [facility] ALT 16 7 - 55 Units/L [facility] AST 19 10 - 50 Units/L [facility] Blood Venous blood specimen / Unknown 10/13/2024 10:06 PM CDT 10/13/2024 10:43 PM CDT Abdiel Donaldson MD LAB BLOOD ORDERABLES Final R esult Performing Organization Address City/[facility] Co de Phone Number [facility] [address] Department [place] [address] * ECG 12 lead (10/13/2024 9:51 PM CDT) 10/13/2024 9:51 PM CDT Narrative [facility] - 10/14/2024 9:31 AM CDT Vent Rate: 68 bpm RR Interval: 880 msec WY Interval: 129 msec QRS Duration: 113 msec QT Interval: 357 msec QTC Interval: 374 msec P-R-T [place]: 26 - 53 - 61 degrees IMPRESSION: SINUS RHYTHM WITH A BORDERLINE SHORT WY INTERVAL WITH MARKED SINUS ARRHYTHMIA INCOMPLETE RIGHT BUNDLE-BRANCH BLOCK BORDERLINE ECG Electronically Signed By: Calvin Sanabria MD mobap us Jose Francisco Jessica MD ECG ORDERABLES Final Resu lt Performing Organization Address [facility] Co de Phone Number [facility] [employer] [facility] * (ABNORMAL) Differential, auto (10/13/2024 7:40 [...] LAB BLOOD ORDERABLES Fi nal Result NEEL [address] [facility] Department [place] [address] * (ABNORMAL) CBC with auto [...] 0.00 - 0.01 K/cumm [facility] Blood 10/13/2024 7:40 AM CDT 10/13/2024 7:42 AM CDT Narrative [facility] - 10/13/2024 7:45 AM CDT For after fluids Rodney Mejia MD LAB BLOOD ORDERABLES Fi nal Result Performing Organization Address [facility] Co de Phone Number [address] [place] [address] * Sepsis Lactate w/ Reflex (10/13/2024 4:57 AM CDT) Sepsis Lactate 1.1 0.7 - 2.0 mmol/L Blood 10/13/2024 4:57 AM CDT 10/13/2024 4:59 AM CDT Rodney Mejia MD LAB BLOOD ORDERABLES Fi nal Result Performing Organization Address [facility] Co de Phone Number [address] [place] [address] * (ABNORMAL) Drugs of Abuse Screen, Urine [...] 2022. Barbiturates, ur Not Detected CutOff 200ng/mL [facility] Comment: Interpretive Data - Barbiturates: Samples containing greater than 200 ng/mL secobarbital or other cross-reacting barbiturate compounds are reported as positive. False positive and false negative results are possible. Confirmatory testing required for definitive results. Current Interpretive Data was last reviewed 2022. Benzodiazepines, ur Not Detected CutOff 100ng/mL [facility] Comment: Interpretive Data - Benzodiazepines: [...] 2023. Methadone, ur Not Detected CutOff 300ng/mL [facility] Comment: Interpretive Data - Methadone: Samples containing [...] AM CDT 10/13/2024 4:16 AM CDT Narrative [facility] - 10/13/2024 4:45 AM CDT Drug of Abuse screening is performed by immunoassay for medical purposes only. This is not to be used for Pain Management purposes. If Detected, confirmation testing will be performed for Amphetamines, Cocaine, Fentanyl, Methadone, Opiates, Oxycodone or Phencyclidine. Rodney Mejia MD LAB URINE ORDERABLES nal Result [facility] [address] [place] [address] * Troponin T high-sensitivity series (baseline, 2hr, 4hr, 6hr) (10/13/2024 4:08 AM CDT) Pathologist [facility] Trop T hs <6 <=22 ng/L Comment: Interpretive Data For further hscTnT resources including the diagnostic algorithm and an aid in interpretation, copy and paste this link: [email or web address].[email or web address]/[email or web address] Current Interpretive Data last revised 2020. Blood 10/13/2024 4:08 AM CDT 10/13/2024 4:16 AM CDT us Rodney Mejia MD LAB BLOOD ORDERABLES Fi nal Result NEEL [address] [address] * eGFR (10/13/2024 4:08 AM CDT) [facility] eGFR 83 >=60 mL/min/1. 73 m2 Comment: [...] MD LAB BLOOD ORDERABLES Fi nal Result [facility] [address] [facility] Department [place] [address] * (ABNORMAL) Differential, auto (10/13/2024 4:08 AM [...] ORDERABLES Fi nal Result Performing Organization Address [facility] Co de Phone Number [facility] [facility] [address] [place] [address] * (ABNORMAL) Urinalysis reflex to microscopic and culture Urine (10/13/2024 4:08 AM CDT) Color, ur Yellow Yellow Clarity, ur Cloudy(A) Clear [facility] Specific gravity, ur 1.013 1.003 - [...] tendency for uric acid stone formation. Source: [facility] Current Interpretive Data was last [...] microscopic UA and culture not met. [facility] Urine 10/13/2024 4:08 AM CDT 10/13/2024 4:16 AM CDT Rodney Mejia MD LAB MICROBIOLOGY - GENE RAL ORDERABLES Final Result Performing Organization Address [facility]/ZIP Co de Phone Number NEEL [address] [place] [address] * (ABNORMAL) CBC with auto differential (10/13/2024 4:08 AM CDT) Pathologist [facility] WBC 17.41(H) 3.80 - 9.90 K/cumm Hgb [...] ORDERABLES Fi nal Result Performing Organization Address [facility] de Phone Number [address] [place] [address] * (ABNORMAL) Lipase (10/13/2024 4:08 AM CDT) [facility] Lipase 270(H) 10 - 99 Units/L Blood Venous blood specimen / Unknown 10/13/2024 4:08 AM CDT 10/13/2024 4:16 AM CDT Rodney Mejia MD LAB BLOOD ORDERABLES Fi nal Result Performing Organization Address [facility] Co de Phone Number [address] [place] [address] * Comprehensive metabolic panel (10/13/2024 4:08 AM [...] LAB BLOOD ORDERABLES Fi nal Result [facility] [address] [facility] [place] [address] * ECG 12 lead (10/13/2024 3:54 AM CDT) Pathologist [facility] Ventricular Rate EKG/Min 66 BPM [facility] Atrial Rate 66 BPM [facility] WY-Interval (MSEC) 86 ms [facility] QRS-Interval (MSEC) 100 ms [facility] QT-Interval (MSEC) 376 ms [facility] QTc 394 ms [facility] P [place] 3 degrees [facility] R [place] 45 degrees [facility] T [place] 52 degrees [facility] Diagnosis Sinus rhythm with short W[place] Incomplete right bundle branch block Confirmed by HOLLAND MELGAR M.D. ([id number]) on 10/13/2024 9:29:09 AM [facility] 10/13/2024 3:54 AM CDT 10/13/2024 9:29 AM CDT Rodney Mejia MD ECG ORDERABLES Final R esult [facility] * eGFR (10/08/2024 7:25 PM CDT) [...] last reviewed 2021. Testing performed by: [facility], [address] [place] [address], [place]., [address] Blood 10/08/2024 7:25 PM CDT 10/08/2024 7:29 PM CDT us Lilliana LAWTON LAB BLOOD ORDERABLES Final Result [facility] [address] [facility] Department [place] [address] * (ABNORMAL) Differential, auto (10/08/2024 7:25 PM CDT) Neutrophil abs 5.02 1.50 - 6.50 K/cumm Comment:Testing performed by : [address] [address] Imm gran abs 0.04 0.00 - 0.10 K/cumm NEEL Comment:Testing performed by : [address] [address] Lymphocyte abs 3.13 0.80 - 3.30 K/cumm NEEL Comment:Testing performed by : [address] [address] Monocyte abs 1.11(H) 0.20 - 0.80 K/cumm NEEL Comment:Testing performed by : [address] [address] Eosinophil abs 0.10 0.00 - 0.50 K/cumm NEEL Comment:Testing performed by : [address] [address] Basophil abs 0.06 0.00 - 0.10 K/cumm NEEL Comment:Testing performed by : [address] [address] Neutrophil pct 53.1 % NEEL Comment: Interpretive Data Percent cell count reference ranges are not reported, since discordance with absolute values may lead to misinterpretation of CBC data. Current Interpretive Data was last revised on 2017. Testing performed by: [address] [address] Imm gran pct 0.4 % NEEL Comment: Interpretive Data Percent cell count reference ranges are not reported, since discordance with absolute values may lead to misinterpretation of CBC data. Current Interpretive Data was last revised on 2017. Testing performed by: [address] [address] Lymphocyte pct 33.1 % NEEL Comment: Interpretive Data Percent cell count reference ranges are not reported, since discordance with absolute values may lead to misinterpretation of CBC data. Current Interpretive Data was last revised on 2017. Testing performed by: [address] [address] Monocyte pct 11.7 % NEEL Comment: Interpretive Data Percent cell count reference ranges are not reported, since discordance with absolute values may lead to misinterpretation of CBC data. Current Interpretive Data was last revised on 2017. Testing performed by: [address] [address] Eosinophil pct 1.1 % NEEL Comment: Interpretive Data Percent cell count reference ranges are not reported, since discordance with absolute values may lead to misinterpretation of CBC data. Current Interpretive Data was last revised on 2017. Testing performed by: [address] [address] Basophil pct 0.6 % NEEL Comment: Interpretive Data Percent cell count reference ranges are not reported, since discordance with absolute values may lead to misinterpretation of CBC data. Current Interpretive Data was last revised on 2017. Testing performed by: [address] [address] Blood 10/08/2024 7:25 PM CDT 10/08/2024 7:29 PM CDT Lilliana LAWTON LAB BLOOD ORDERABLES Final Result NEEL [address] [facility] Department of Laboratories [place], [place] [id number] * (ABNORMAL) CBC with auto differential (10/08/2024 7:25 PM CDT) WBC 9.46 3.80 - 9.90 K/cumm Comment:Testing performed by : [address] [address] Hgb 15.0 13.0 - 17.5 g/dL NEEL Comment:Testing performed by : [address], [address] Hct 44.6 38.9 - 50.3 % NEEL Comment:Testing performed by : [address], [address] Plt 321 150 - 400 K/cumm NEEL Comment:Testing performed by : [address] [address] MPV 10.0 9.1 - 12.3 fL NEEL Comment:Testing performed by : [address], [address] RBC 5.38 4.30 - 5.80 M/cumm NEEL Comment:Testing performed by : [address], [address] MCV 82.9 81.3 - 96.4 fL NEEL Comment:Testing performed by : [address], [address] MCH 27.9 27.1 - 33.3 pg NEEL Comment:Testing performed by : [address], [address] MCHC 33.6 32.3 - 35.7 g/dL NEEL Comment:Testing performed by : [address], [address] RDW CV 15.5(H) 11.1 - 14.9 % NEEL Comment:Testing performed by : [address], [address] RDW SD 46.7 35.7 - 48.1 fL NEEL Comment:Testing performed by : [address], [address] NRBC abs 0.00 0.00 - 0.01 K/cumm NEEL Comment:Testing performed by : [address], [address] Blood Venous blood specimen / Unknown 10/08/2024 7:25 PM CDT 10/08/2024 7:29 PM CDT Lilliana LAWTON LAB BLOOD ORDERABLES Final Result [address] [place] [address] * Lipase (10/08/2024 7:25 PM CDT) [facility] Lipase 42 10 - 99 Units/L Comment:Testing performed by : [address] [address] Blood Venous blood specimen / Unknown 10/08/2024 7:25 PM CDT 10/08/2024 7:29 PM CDT Lilliana LAWTON LAB BLOOD ORDERABLES Final Result Performing Organization Address City/[facility] Co de Phone Number [address] [place] [address] * Comprehensive metabolic panel (10/08/2024 7:25 PM CDT) [facility] Sodium 141 135 - 145 mmol/L Comment:Testing performed by : [address] [address] Potassium, pl 4.3 3.3 - 4.9 mmol/L NEEL Comment: Hemolyzed; Potassium value may be falsely elevated by as much as 1.0 mmol/L. Suggest redraw and reanalysis. Testing performed by: [address] [address] Chloride 105 97 - 110 mmol/L NEEL Comment:Testing performed by : [address] [address] CO2 22 22 - 32 mmol/L NEEL Comment:Testing performed by : [address] [address] Anion gap 14 2 - 15 mmol/L NEEL Comment:Testing performed by : [address] [address] BUN 7 6 - 25 mg/dL NEEL Comment:Testing performed by : [address] [address] Creatinine 1.02 0.80 - 1.30 mg/dL NEEL Comment:Testing performed by : [address] [address] Glucose 104 70 - 199 mg/dL NEEL [...] last revised 2022. Testing performed by: [address] [address] Calcium 10.1 8.5 - 10.3 mg/dL NEEL Comment:Testing performed by : [address] [address] Bilirubin, total 0.3 0.1 - 1.2 mg/dL NEEL Comment:Testing performed by : [address] [address] Protein, pl 7.7 6.5 - 8.5 g/dL NEEL Comment:Testing performed by : [address] [address] Albumin 4.8 3.5 - 5.0 g/dL NEEL Comment:Testing performed by : [address] [address] Alk phos 88 40 - 130 Units/L NEEL Comment:Testing performed by : [address] [address] ALT 24 7 - 55 Units/L NEEL Comment:Testing performed by : [address] [address] AST 25 10 - 50 Units/L NEEL Comment: Hemolyzed; result may be falsely elevated Testing performed by: [address] [address] Blood 10/08/2024 7:25 PM CDT 10/08/2024 7:29 PM CDT Lilliana LAWTON LAB BLOOD ORDERABLES Final Result NEEL MH [address] [facility] [place] [address] * CTA Chest Abdomen Pelvis (10/07/2024 6:41 [...] Melissa Phoenix M.D. SN T: Report ID: [id number] Reading Location: [id number] Procedure Note Melissa Phoenix MD - 10/07/2024 [...] Melissa Phoenix M.D. 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 SN T: Report ID: [id number] Reading Location: [id number] Procedure Note Melissa Phoenix MD - 10/07/2024 EXAM DESCRIPTION: XR CHEST 1 VIEW REASON FOR STUDY: Abd pain, unspecified C/o upper L quad abd pain. 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 SN T: Report ID: [id number] Reading Location: [id number] Jose Francisco Ramiro Harper DO IMG XR [...] DO LAB BLOOD ORDERABLES Final Result NEEL [address] [facility] Department of Laboratories [place], [place] [id number] * ECG 12 lead (10/07/2024 4:11 AM CDT) Ventricular Rate EKG/Min 65 BPM [facility] Atrial Rate 65 BPM [facility] WY-Interval (MSEC) 108 ms [facility] QRS-Interval (MSEC) 102 ms [facility] QT-Interval (MSEC) 388 ms [facility] QTc 403 ms [facility] P [place] 30 degrees [facility] R [place] 56 degrees [facility] T [place] 58 degrees [facility] Diagnosis Sinus rhythm with short W[place] Otherwise normal ECG When compared with ECG of 27-JUN-2024 09:54, No significant change was found Confirmed by ASHLIE BERMEO M.D. ([id number]) on 10/07/2024 11:47:08 PM [facility] 10/07/2024 4:11 AM CDT 10/07/2024 11:47 PM CDT Jose Francisco Ramiro Harper DO ECG ORDERABLES Final Resul t Performing Organization Address City/[facility]/ZIP Co de Phone Number [facility] * Urinalysis reflex to microscopic and culture Urine (10/07/2024 4:06 AM CDT) Color, ur Yellow Yellow Clarity, ur Clear Clear [facility] Specific gravity, ur 1.013 1.003 - 1.030 [facility] pH, urine 5.5 [facility] Comment: Interpretive Data U rine pH is affected by diet, medications, systemic acid-base disturbances, and renal tubular function. pH may affect urinary stone formation. For example, urine pH below 6.0 may help reduce the tendency for calcium phosphate stones and pH greater than 6.0 may reduce the tendency for uric acid stone formation. Source: [facility] [place] Current Interpretive Data was last revised on [...] microscopic UA and culture not met. [facility] Urine 10/07/2024 4:06 AM CDT 10/07/2024 4:10 AM CDT Jose Francisco Harper DO LAB MICROBIOLOGY - GENERAL ORDERABLES Final Result Performing Organization Address City/[facility]/ZIP Co de Phone Number [facility] [address] [facility] Department [place] [address] * Troponin T high-sensitivity series [...] BLOOD ORDERABLES Final Result Performing Organization Address City/[facility]/ZIP Co de Phone Number NEEL [address] [address] * eGFR (10/07/2024 4:00 AM CDT) eGFR [...] DO LAB BLOOD ORDERABLES Final Result NEEL [address] [place] [address] * (ABNORMAL) Differential, auto (10/07/2024 4:00 AM [...] DO LAB BLOOD ORDERABLES Final Result NEEL [address] [facility] Department [place] [address] * (ABNORMAL) CBC with auto differential (10/07/2024 4:00 AM CDT) [facility] WBC 11.05(H) 3.80 - 9.90 K/cumm Hgb [...] BLOOD ORDERABLES Final Result Performing Organization Address City/[facility] Co de Phone Number [address] [place] [address] * (ABNORMAL) Lipase (10/07/2024 4:00 AM CDT) [facility] Lipase 104(H) 10 - 99 Units/L Blood Venous blood specimen / Unknown 10/07/2024 4:00 AM CDT 10/07/2024 4:02 AM CDT [facility] BLOOD ORDERABLES Final Result Performing Organization Address [facility] Co de Phone Number [address] [place] [address] * Comprehensive metabolic panel (10/07/2024 4:00 AM [...] DO LAB BLOOD ORDERABLES Final Result NEEL [address] [facility] Department [place] [address] * eGFR (10/03/2024 7:08 AM CDT) [facility] eGFR >90 >=60 mL/min/1. 73 m2 [...] MD LAB BLOOD ORDERABLES Final Res ult [facility] [address] [facility] Department [place] [address] * (ABNORMAL) CBC without differential [...] ORDERABLES Final Res ult Performing Organization Address [facility] Co de Phone Number [address] [address] * Lipase (10/03/2024 7:08 AM CDT) Pathologist [facility] Lipase 55 10 - 99 Units/L Blood 10/03/2024 7:08 AM CDT 10/03/2024 7:22 AM CDT us Fred Toth MD LAB BLOOD ORDERABLES Final Res ult Performing Organization Address [facility] de Phone Number [address] [address] * Basic metabolic panel (10/03/2024 7:08 AM CDT) Pathologist [facility] Sodium 141 135 - 145 [...] LAB BLOOD ORDERABLES Final Res ult NEEL [address] [facility] [place] [address] * (ABNORMAL) Lipid panel (10/03/2024 1:54 AM [...] revised on 2017. Testing performed by: [address] [address] Triglycerides 115 <=149 mg/dL NEEL Comment: Interpretive [...] revised on 2017. Testing performed by: [address] [place]., [address] HDL 32(L) >=40 mg/dL NEEL Comment: Interpretive [...] revised on 2017. Testing performed by: [address] [address] LDL, calculated 61 <=129 mg/dL NEEL SMITH [...] revised on 2023. Testing performed by: [address] [address] Non-HDL Cholesterol 82 mg/dL NEEL SMITH Comment: [...] revised on 2017. Testing performed by: [facility], [address] [place] [address]., [address] Chol/HDL ratio 4 NEEL SMITH Comment:Testing performed by : [facility], [address] [place] [address]., [address] Blood 10/03/2024 1:54 AM CDT 10/03/2024 2:00 AM CDT us Fred Toth MD LAB BLOOD ORDERABLES Final Res ult NEEL SMITH [address] [facility] [place] [address] * CT Abdomen Pelvis W Contrast (10/03/2024 [...] Aryan Jovel M.D. AR: GIOVANNA Report ID: [id number] Reading Location: [place] [address] Procedure Note Aryan Jovel MD - 10/03/2024 [...] Aryan Jovel M.D. AR: GIOVANNA Report ID: [id number] Reading Location: [place] [address] Fred Toth MD IM CT PROCEDURES Final Result * (ABNORMAL) Drugs of Abuse Screen, Urine with Reflex Confirmation (10/03/2024 12:51 AM CDT) [facility] Amphetamine, ur Not Detected CutOff 500ng/mL Comment: Interpretive Data - Amphetamines: Samples containing greater than 500 ng/mL d-methamphetamine or other cross-reacting amphetamine compounds are reported as positive. Amphetamine immunoassays are subject to significant false positive rates due to cross-reactivity of non-amphetamine drugs. Confirmatory testing required for definitive results. Current Interpretive Data was last reviewed 2022. Testing performed by: [address] [address] Barbiturates, ur Not Detected CutOff 200ng/mL NEEL Comment: Interpretive Data - Barbiturates: Samples containing greater than 200 ng/mL secobarbital or other cross-reacting barbiturate compounds are reported as positive. False positive and false negative results are possible. Confirmatory testing required for definitive results. Current Interpretive Data was last reviewed 2022. Testing performed by: [address] [address] Benzodiazepines, ur Not Detected CutOff 100ng/mL [facility] Comment: Interpretive Data - Benzodiazepines: Samples containing greater than 100 ng/mL nordiazepam or other cross-reacting compounds are reported as positive. False positive and false negative results are possible. Confirmatory testing required for definitive results. Current Interpretive Data was last reviewed 2022. Testing performed by: [facility], [address] [place] [address]., [address] Cannabinoids, ur Screen Positive, presumptive (A) CutOff 50 ng/mL [facility] Comment: Interpretive Data - Cannabinoids: Samples containing greater than 50 ng/mL delta-9 THC -COOH or other cross- reacting compounds are reported as positive. False positive and false negative results are possible. Confirmatory testing required for definitive results. Current Interpretive Data was last reviewed 2022. Testing performed by: [facility], [address] [place] [address], [place]., [address] Cocaine, ur Not Detected CutOff 150ng/mL [facility] Comment: Interpretive Data - Cocaine: Samples containing greater than 150 ng/mL benzoylecgonine or other cross- reacting compounds are reported as positive. False positive and false negative results are possible. Confirmatory testing required for definitive results. Current Interpretive Data was last reviewed 2022. Testing performed by: [address] [address] Fentanyl, Ur Not Detected CutOff 5 ng/mL [facility] Comment: Interpretive Data - Fentanyl: Samples containing greater than 1 ng/mL fentanyl or other cross-reacting fentanyl compounds are reported as positive. False positive and false negative results are possible. Confirmatory testing required for definitive results. Current Interpretive Data was last reviewed 2022. Testing performed by: [address] [address] Methadone, ur Not Detected CutOff 300ng/mL [facility] Comment: Interpretive Data - Methadone: Samples containing greater than 300 ng/mL d,l-methadone or other cross-reacting compounds are reported as positive. False positive and false negative results are possible. Confirmatory testing required for definitive results. Current Interpretive Data was last reviewed 2022. Testing performed by: [address] [address] Opiates, ur Not Detected CutOff 300ng/mL [facility] Comment: Interpretive Data - Opiates: Samples containing greater than 300 ng/mL morphine or other cross-reacting compounds are reported as positive. False positive and false negative results are possible. Confirmatory testing required for definitive results. Current Interpretive Data was last reviewed 2022. Testing performed by: [address] [address] Oxycodone, ur Not Detected CutOff 100ng/mL NEEL Comment: Interpretive Data - Oxycodone: Samples containing greater than 100 ng/mL oxycodone or other cross-reacting compounds are reported as positive. False positive and false negative results are possible. Confirmatory testing required for definitive results. Current Interpretive Data was last reviewed 2022. Testing performed by: [address] [address] Phencyclidine, ur Not Detected CutOff 25 ng/mL NEEL Comment: Interpretive Data - Phencyclidine: Samples containing greater than 25 ng/mL phencyclidine or other cross-reacting compounds are reported as positive. False positive and false negative results are possible. Confirmatory testing required for definitive results. Current Interpretive Data was last reviewed 2022. Testing performed by: [address] [address] Urine Creatinine 102 mg/dL NEEL Comment: Interpretive Data Urine Creatinine: < 10 mg/dL is extremely dilute = or > 10 but < 20 mg/dL is dilute = or > 20 mg/dL is normal Current Interpretive Data was last revised on 2017. Testing performed by: [address] [address] Urine 10/03/2024 12:5 1 AM CDT 10/03/2024 [...] LAB URINE ORDERABLES Final Res ult NEEL [address] [facility] Department of Laboratories [place], [place] [id number] * Urinalysis reflex to microscopic and culture Urine (10/02/2024 10:09 PM CDT) Color, ur Yellow Yellow Comment:Testing performed by : [address] [address] Clarity, ur Clear Clear NEEL Comment:Testing performed by : [address], [place]., [address] Specific gravity, ur 1.011 1.003 - 1.030 NEEL Comment:Testing performed by : [address] [address] pH, urine 6.0 NEEL Comment: Interpretive Data U rine pH is affected by diet, medications, systemic acid-base disturbances, and renal tubular function. pH may affect urinary stone formation. For example, urine pH below 6.0 may help reduce the tendency for calcium phosphate stones and pH greater than 6.0 may reduce the tendency for uric acid stone formation. Source: [facility] Current Interpretive Data was last revised on 2017 Testing performed by: [address] [address] Protein, ur ql Negative Negative NEEL Comment:Testing performed by : [address] [address] Glucose, ur ql Negative Negative NEEL Comment:Testing performed by : [address] [address] Ketones, ur Negative Negative NEEL Comment:Testing performed by : [address] [address] Bilirubin, ur Negative Negative NEEL Comment:Testing performed by : [address] [address] Blood, ur Negative Negative NEEL Comment:Testing performed by : [address] [address] Urobilinogen, ur <2.0 <2.0 mg/dL NEEL Comment:Testing performed by : [address] [address] Nitrite, ur Negative Negative NEEL Comment:Testing performed by : [address] [address] Leukocyte esterase, ur Negative Negative NEEL Comment:Testing performed by : [address] [address] UA reflex comment Reflex conditions for microscopic UA and culture not met. [facility] Comment:Testing performed by : [address] [address] Urine 10/02/2024 10:0 9 PM CDT 10/02/2024 10:11 PM CDT María Elena Calvo MD LAB MICROBIOLOGY - GENERA L ORDERABLES Final Result Performing Organization Address [facility] Co de Phone Number [address] [place] [address] * eGFR (10/02/2024 9:51 PM [...] last reviewed 2021. Testing performed by: [facility], [address] [place] [address]., [address] Blood 10/02/2024 9:5 1 PM CDT 10/02/2024 9:57 PM CDT María Elena Calvo MD LAB BLOOD ORDERABLES Renee l Result Performing Organization Address City/[facility]/ZIP Co de Phone Number [facility] [address] [facility] [place] [address] * (ABNORMAL) Differential, auto (10/02/2024 9:51 PM CDT) Neutrophil abs 12.91(H) 1.50 - 6.50 K/cumm Comment:Testing performed by : [address] [address] Imm gran abs 0.10 0.00 - 0.10 K/cumm NEEL Comment:Testing performed by : [address] [address] Lymphocyte abs 1.91 0.80 - 3.30 K/cumm NEEL Comment:Testing performed by : [address] [address] Monocyte abs 1.44(H) 0.20 - 0.80 K/cumm NEEL Comment:Testing performed by : [address] [address] Eosinophil abs 0.14 0.00 - 0.50 K/cumm NEEL Comment:Testing performed by : [address] [address] Basophil abs 0.07 0.00 - 0.10 K/cumm NEEL Comment:Testing performed by : [address] [address] Neutrophil pct 78.0 % NEEL Comment: Interpretive Data Percent cell count reference ranges are not reported, since discordance with absolute values may lead to misinterpretation of CBC data. Current Interpretive Data was last revised on 2017. Testing performed by: [address] [address] Imm gran pct 0.6 % NEEL Comment: Interpretive Data Percent cell count reference ranges are not reported, since discordance with absolute values may lead to misinterpretation of CBC data. Current Interpretive Data was last revised on 2017. Testing performed by: [address] [address] Lymphocyte pct 11.5 % NEEL Comment: Interpretive Data Percent cell count reference ranges are not reported, since discordance with absolute values may lead to misinterpretation of CBC data. Current Interpretive Data was last revised on 2017. Testing performed by: [address] [address] Monocyte pct 8.7 % NEEL Comment: Interpretive Data Percent cell count reference ranges are not reported, since discordance with absolute values may lead to misinterpretation of CBC data. Current Interpretive Data was last revised on 2017. Testing performed by: [address] [address] Eosinophil pct 0.8 % NEEL Comment: Interpretive Data Percent cell count reference ranges are not reported, since discordance with absolute values may lead to misinterpretation of CBC data. Current Interpretive Data was last revised on 2017. Testing performed by: [address] [address] Basophil pct 0.4 % NEEL Comment: Interpretive Data Percent cell count reference ranges are not reported, since discordance with absolute values may lead to misinterpretation of CBC data. Current Interpretive Data was last revised on 2017. Testing performed by: [address] [address] Blood 10/02/2024 9:51 PM CDT 10/02/2024 9:57 PM CDT us María Elena Calvo MD LAB BLOOD ORDERABLES Renee l Result Performing Organization Address City/State/[facility] Co de Phone Number [facility] [address] [facility] Department [place] [address] * (ABNORMAL) CBC with auto differential (10/02/2024 9:51 PM CDT) WBC 16.57(H) 3.80 - 9.90 K/cumm Comment:Testing performed by : [address] [address] Hgb 13.9 13.0 - 17.5 g/dL NEEL Comment:Testing performed by : [address] [address] Hct 41.0 38.9 - 50.3 % NEEL Comment:Testing performed by : [address], [address] Plt 281 150 - 400 K/cumm NEEL SMITH Comment:Testing performed by : [address] [address] MPV 9.9 9.1 - 12.3 fL NEEL Comment:Testing performed by : [address], [address] RBC 4.94 4.30 - 5.80 M/cumm NEEL SMITH Comment:Testing performed by : [address], [address] MCV 83.0 81.3 - 96.4 fL NEEL Comment:Testing performed by : [address] [address] MCH 28.1 27.1 - 33.3 pg NEEL Comment:Testing performed by : [address], [address] MCHC 33.9 32.3 - 35.7 g/dL NEEL Comment:Testing performed by : [address], [address] RDW CV 15.4(H) 11.1 - 14.9 % NEEL Comment:Testing performed by : [address], [address] RDW SD 46.5 35.7 - 48.1 fL NEEL Comment:Testing performed by : [address], [address] NRBC abs 0.00 0.00 - 0.01 K/cumm NEEL Comment:Testing performed by : [address], [address] Blood Venous blood specimen / Unknown 10/02/2024 9:51 PM CDT 10/02/2024 9:57 PM CDT María Elena Calvo MD LAB BLOOD ORDERABLES Renee antunez Result NEEL [facility] [place] [address] * (ABNORMAL) Lipase (10/02/2024 9:51 PM CDT) Pathologist [facility] Lipase 444(H) 10 - 99 Units/L Comment:Testing performed by : [address] [address] Blood Venous blood specimen / Unknown 10/02/2024 9:51 PM CDT 10/02/2024 9:57 PM CDT María Elena Calvo MD LAB BLOOD ORDERABLES Renee antunez Result NEEL [facility]0 [facility] [place] [address] * Comprehensive metabolic panel (10/02/2024 9:51 PM CDT) [facility] Sodium 143 135 - 145 mmol/L Comment:Testing performed by : [address] [address] Potassium, pl 3.9 3.3 - 4.9 mmol/L NEEL Comment:Testing performed by : [address] [address] Chloride 107 97 - 110 mmol/L NEEL Comment:Testing performed by : [address] [address] CO2 22 22 - 32 mmol/L NEEL Comment:Testing performed by : [address] [address] Anion gap 14 2 - 15 mmol/L NEEL Comment:Testing performed by : [address] [address] BUN 7 6 - 25 mg/dL NEEL Comment:Testing performed by : [address] [address] Creatinine 1.08 0.80 - 1.30 mg/dL NEEL Comment:Testing performed by : [address] [address] Glucose 129 70 - 199 mg/dL NEEL [...] last revised 2022. Testing performed by: [address] [address] Calcium 10.0 8.5 - 10.3 mg/dL NEEL Comment:Testing performed by : [address] [address] Bilirubin, total 0.3 0.1 - 1.2 mg/dL NEEL Comment:Testing performed by : [address] [address] Protein, pl 7.2 6.5 - 8.5 g/dL NEEL Comment:Testing performed by : [address] [address] Albumin 4.5 3.5 - 5.0 g/dL NEEL Comment:Testing performed by : [address] [address] Alk phos 84 40 - 130 Units/L NEEL Comment:Testing performed by : [address] [address] ALT 28 7 - 55 Units/L NEEL Comment:Testing performed by : [address] [address] AST 37 10 - 50 Units/L NEEL Comment:Testing performed by : [address] [address] Blood 10/02/2024 9:51 PM CDT 10/02/2024 9:57 PM CDT us María Elena Calvo MD LAB BLOOD ORDERABLES Renee antunez Result NEEL [facility] [address] [facility] Department [place] [address] * CT Abdomen Pelvis W Contrast (09/30/2024 [...] Esa Cao M.D. AG: GONZALES Report ID: [id number] Reading Location: [id number] Procedure Note Esa Cao MD - 09/30/2024 [...] Esa Cao M.D. AG: GONZALES Report ID: [id number] Reading Location: [place] [address] Radha Casas DO IM CT PROCEDURES Final Result * (ABNORMAL) Urinalysis reflex to microscopic and culture Urine (09/30/2024 5:55 PM CDT) Color, ur Yellow Yellow Comment:Testing performed by : [address] [address] Clarity, ur Clear Clear NEEL Comment:Testing performed by : [address] [address] Specific gravity, ur 1.035(H) 1.003 - 1.030 NEEL Comment:Testing performed by : [address] [address] pH, urine 6.0 NEEL Comment: Interpretive Data U rine pH is affected by diet, medications, systemic acid-base disturbances, and renal tubular function. pH may affect urinary stone formation. For example, urine pH below 6.0 may help reduce the tendency for calcium phosphate stones and pH greater than 6.0 may reduce the tendency for uric acid stone formation. Source: [facility] [employer] Current Interpretive Data was last revised on 2017 Testing performed by: [facility], [address] [place] [address], [place]., [address] Protein, ur ql 1+(A) Negative NEEL Comment:Testing performed by : [address], [place]., [address] Glucose, ur ql Negative Negative NEEL Comment:Testing performed by : [address], [place]., [address] Ketones, ur 1+(A) Negative NEEL Comment:Testing performed by : [address], [place]., [address] Bilirubin, ur Negative Negative NEEL Comment:Testing performed by : [address], [place]., [address] Blood, ur Negative Negative NEEL Comment:Testing performed by : [address], [place]., [address] Urobilinogen, ur 2.0(A) <2.0 mg/dL NEEL Comment:Testing performed by : [address], [place]., [address] Nitrite, ur Negative Negative NEEL Comment:Testing performed by : [address] [address] Leukocyte esterase, ur Negative Negative NEEL Comment:Testing performed by : [address] [address] UA reflex comment Reflex to microscopic UA will be performed. NEEL Comment:Testing performed by : [address], [place]., [address] Urine 09/30/2024 5:55 PM CDT 09/30/2024 5:57 PM CDT us Radha Casas DO LAB MICROBIOLOGY - GENERAL ORDE SAMEER Final Result NEEL SMITH [address] [facility] [place] [address] * (ABNORMAL) Urinalysis, microscopic only (09/30/2024 5:55 PM CDT) Pathologist [facility] WBC, ur 6-10(A) 0 - 5 /HPF Comment:Testing performed by : [facility], [address] [place] [address]., [address] RBC, ur 3-5(A) 0 - 2 /HPF NEEL Comment:Testing performed by : [facility], [address] [place] [address]., [address] Epithelial cells, squamous, ur 6-10(A) 0 - 5 /HPF NEEL Comment:Testing performed by : [address] [address] Mucous, ur Present(A) NEEL Comment:Testing performed by : [address] [address] Culture Reflex Comment Reflex conditions for urine culture (WBC >10) not met. NEEL Comment:Testing performed by : [facility], [address] [place] [address]., [address] Urine 09/30/2024 5:55 PM CDT 09/30/2024 5:57 PM CDT Radha Casas DO LAB URINE ORDERABLES Final Resu lt NEEL [address] [facility] [place] [address] * eGFR (09/30/2024 4:01 PM CDT) [facility] eGFR >90 >=60 mL/min/1. 73 m2 [...] last reviewed 2021. Testing performed by: [address] [address] Blood 09/30/2024 4:01 PM CDT 09/30/2024 4:06 PM CDT Radha Casas DO LAB BLOOD ORDERABLES Final Resu lt NEEL SMITH [facility]0 [facility] Department [place] [address] * Differential, auto (09/30/2024 4:01 PM CDT) Neutrophil abs 5.11 1.50 - 6.50 K/cumm Comment:Testing performed by : [address] [address] Imm gran abs 0.04 0.00 - 0.10 K/cumm NEEL Comment:Testing performed by : [address] [address] Lymphocyte abs 1.62 0.80 - 3.30 K/cumm NEEL Comment:Testing performed by : [address] [address] Monocyte abs 0.77 0.20 - 0.80 K/cumm NEEL Comment:Testing performed by : [address] [address] Eosinophil abs 0.18 0.00 - 0.50 K/cumm NEEL Comment:Testing performed by : [address] [address] Basophil abs 0.05 0.00 - 0.10 K/cumm NEEL Comment:Testing performed by : [address] [address] Neutrophil pct 65.9 % CERNER Comment: Interpretive Data Percent cell count reference ranges are not reported, since discordance with absolute values may lead to misinterpretation of CBC data. Current Interpretive Data was last revised on 2017. Testing performed by: [address] [address] Imm gran pct 0.5 % [facility] Comment: Interpretive Data Percent cell count reference ranges are not reported, since discordance with absolute values may lead to misinterpretation of CBC data. Current Interpretive Data was last revised on 2017. Testing performed by: [address] [address] Lymphocyte pct 20.8 % [facility] Comment: Interpretive Data Percent cell count reference ranges are not reported, since discordance with absolute values may lead to misinterpretation of CBC data. Current Interpretive Data was last revised on 2017. Testing performed by: [address] [address] Monocyte pct 9.9 % [facility] Comment: Interpretive Data Percent cell count reference ranges are not reported, since discordance with absolute values may lead to misinterpretation of CBC data. Current Interpretive Data was last revised on 2017. Testing performed by: [address] [address] Eosinophil pct 2.3 % CERNER Comment: Interpretive Data Percent cell count reference ranges are not reported, since discordance with absolute values may lead to misinterpretation of CBC data. Current Interpretive Data was last revised on 2017. Testing performed by: [address] [address] Basophil pct 0.6 % [facility] Comment: Interpretive Data Percent cell count reference ranges are not reported, since discordance with absolute values may lead to misinterpretation of CBC data. Current Interpretive Data was last revised on 2017. Testing performed by: [address] [address] Blood 09/30/2024 4:01 PM CDT 09/30/2024 4:06 PM CDT us Radha Casas DO LAB BLOOD ORDERABLES Final Resu lt NEEL [address] [facility] Department of Laboratories [place], [place] [id number] * (ABNORMAL) CBC with auto differential (09/30/2024 4:01 PM CDT) WBC 7.77 3.80 - 9.90 K/cumm Comment:Testing performed by : [address] [address] Hgb 14.5 13.0 - 17.5 g/dL NEEL Comment:Testing performed by : [address] [address] Hct 43.0 38.9 - 50.3 % NEEL Comment:Testing performed by : [address] [address] Plt 278 150 - 400 K/cumm NEEL Comment:Testing performed by : [address] [address] MPV 9.8 9.1 - 12.3 fL NEEL Comment:Testing performed by : [address] [address] RBC 5.18 4.30 - 5.80 M/cumm NEEL Comment:Testing performed by : [address] [address] MCV 83.0 81.3 - 96.4 fL NEEL Comment:Testing performed by : [address] [address] MCH 28.0 27.1 - 33.3 pg NEEL Comment:Testing performed by : [address] [address] MCHC 33.7 32.3 - 35.7 g/dL NEEL Comment:Testing performed by : [address] [address] RDW CV 15.3(H) 11.1 - 14.9 % NEEL Comment:Testing performed by : [address], [address] RDW SD 46.4 35.7 - 48.1 fL NEEL SMITH Comment:Testing performed by : [address] [address] NRBC abs 0.00 0.00 - 0.01 K/cumm NEEL SMITH Comment:Testing performed by : [address] [address] Blood Venous blood specimen / Unknown 09/30/2024 4:01 PM CDT 09/30/2024 4:06 PM CDT Radha Yessenia LAB BLOOD ORDERABLES Final Resu lt Performing Organization Address [facility]/ZIP Co de Phone Number [address] [place] [place] [address] * Lipase (09/30/2024 4:01 PM CDT) Pathologist [facility] Lipase 51 10 - 99 Units/L Comment:Testing performed by : [address] [address] Blood Venous blood specimen / Unknown 09/30/2024 4:01 PM CDT 09/30/2024 4:06 PM CDT Radha Yessenia LAB BLOOD ORDERABLES Final Resu lt Performing Organization Address [facility] Co de Phone Number [address] [address] * Comprehensive metabolic panel (09/30/2024 4:01 PM CDT) Sodium 141 135 - 145 mmol/L Comment:Testing performed by : [address] [address] Potassium, pl 4.0 3.3 - 4.9 mmol/L NEEL SMITH Comment:Testing performed by : [address] [address] Chloride 106 97 - 110 mmol/L NEEL SMITH Comment:Testing performed by : [address] [address] CO2 24 22 - 32 mmol/L NEEL Comment:Testing performed by : [address] [address] Anion gap 11 2 - 15 mmol/L NEEL Comment:Testing performed by : [address], [place]., [address] BUN 9 6 - 25 mg/dL NEEL Comment:Testing performed by : [address], [place]., [address] Creatinine 1.00 0.80 - 1.30 mg/dL NEEL Comment:Testing performed by : [address] [address] Glucose 107 70 - 199 mg/dL NEEL [...] last revised 2022. Testing performed by: [address] [address] Calcium 9.6 8.5 - 10.3 mg/dL NEEL Comment:Testing performed by : [address] [address] Bilirubin, total 0.4 0.1 - 1.2 mg/dL NEEL Comment:Testing performed by : [address] [address] Protein, pl 7.1 6.5 - 8.5 g/dL NEEL Comment:Testing performed by : [address] [address] Albumin 4.3 3.5 - 5.0 g/dL NEEL Comment:Testing performed by : [address] [address] Alk phos 87 40 - 130 Units/L NEEL SMITH Comment:Testing performed by : [facility], [address] [place] [address]., [address] ALT 25 7 - 55 Units/L NEEL SMITH Comment:Testing performed by : [facility], [address] [place] [address]., [address] AST 25 10 - 50 Units/L NEEL SMITH Comment:Testing performed by : [facility], [address] [place] [address]., [address] Blood 09/30/2024 4:01 PM CDT 09/30/2024 4:06 PM CDT us Radha Casas DO LAB BLOOD ORDERABLES Final Resu lt NEEL SMITH [address] [facility] [place] [address] from Last 3 Months Advance Directives For more information, please contact: [phone] * Full Code (Latest Code Status on [...] 12:50 PM 11/16/2023 7:54 PM Care Teams Paper Steamer Relationship Specialty Start Date End Date Td Lopez MD [facility] [address] PCP - General Family Medicine 11/09/20 Angie Woodard MD [address] [facility] [address] [place] [address] Consulting Physician Gastroenterology 07/17/21 Vimal Woodruff MD [address] [address] Consulting Physician Gastroenterology 02/10/22
--- OUTSIDE RECORDS SUMMARY | 2024-12-06 15:51 | XMS_ITS | Clinical Summary ---
Author Organization [facility] Address [facility] [place] [address] Care Team Providers Care Material Reclaimer Name Role Phone Td Lopez MD Primary Care Provider [phone] Allergies Active Allergy Reactions Criticality Noted Date Comments Capsaicin Other (see comment) Low 05/20/2019 Pt states it gets into his scars and causes a lot of pain Doxycycline GI Upset Low 03/29/2017 Haloperidol Other (see comment) 01/29/2022 Musculoskeletal pain Metoclopramide Myalgias 03/29/2017 Sulfa Antibiotics Myalgias,Other (see comment) Medium 03/29/2017 Reaction: neurological symptoms per patient Medications CREON 35360-206529 units CAPSULE ENTERIC COATED PARTICLES Take 36,000 [...] pain 10/18/2022 Abdominal pain 10/18/2022 Acute pancreatitis ([facility]) 09/28/2022 Renal infarct ([facility]) 09/08/2022 Marijuana use 09/04/2022 Normocytic normochromic anemia 09/04/2022 Sphincter of Oddi dysfunction 09/04/2022 Tobacco use disorder, continuous 09/04/2022 Pancreatitis ([facility]) 09/02/2022 GI bleed 06/28/2022 Folliculitis 01/08/2022 Overview (09/04/2022): Last Assessment & Plan: - chronic, uncontrolled - start clindamycin gel daily x 7 days - ref to derm for eval. Manipulative behavior 07/14/2021 COVID-19 vaccine series completed 06/27/2021 Overview (09/04/2022): Moderna x2 Drug-seeking behavior 06/27/2021 History of 2019 novel coronavirus disease (COVID -19) 06/27/2021 Drug abuse and dependence ([facility]) 09/2020 Overview (09/04/2022): Last Assessment & Plan: - using mariajuana occasionally; has had frequent rx for opioids in ER - pt claims at least several days since last ER visit with narcotics given - record review suggests at least 2 wks - will check UDS Acute recurrent pancreatitis ([facility]) Other chronic pancreatitis ([facility]) Overview (09/04/2022): Last Assessment & Plan: - stable today - continue current medications - f/u with Dr Rosas as planned - encouraged pt to come to clinic instead of going to ER next time he has abdominal pain Duodenal papillary stenosis ([facility]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/27/2020 Hyperemesis 10/18/2019 Annual physical exam 07/15/2019 [...] Colitis 02/18/2019 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/18/2018 Mild malnutrition ([facility]) 10/18/2018 Neutrophilic leukocytosis 10/18/2018 Tobacco use disorder 10/18/2018 Other chronic pancreatitis ([facility]) 02/2019 Overview (02/18/2019): Overview: Added automatically from request for surgery [id number] Chronic abdominal pain 03/30/2017 Assessment & Plan (03/30/2017 12:03 PM BEAD SUPERVISOR): Acute on chronic, stable Patient with possible [...] Continue to advance diet as tolerated Sepsis ([facility]) 03/30/2017 Assessment & Plan (03/30/2017 12:03 PM BEAD SUPERVISOR): Present on admission, resolved Lactic acid 2.8 [...] 03/30/2017 Assessment & Plan (03/30/2017 12:25 AM BEAD SUPERVISOR): - established, controlled - continue home fluoxetine, nortriptyline GERD (gastroesophageal reflux disease) 7 Assessment & Plan (03/30/2017 12:25 AM BEAD SUPERVISOR): - established, controlled - continue home nexium Hypertension 03/30/2017 Overview (03/30/2017): - established, controlled - continue home metoprolol Assessment & Plan (03/30/2017 1:01 AM BEAD SUPERVISOR): - established, controlled - continue home metoprolol Influenza 03/30/2017 Depression 03/30/2017 Overview (02/18/2019): Overview: Last Assessment & Plan: - established, controlled - continue home fluoxetine, nortriptyline Flu 03/29/2017 Assessment & Plan (03/30/2017 12:03 PM BEAD SUPERVISOR): Acute, influenza A + on admission, asymptomatic [...] CDT - 10/11/2024 3:20 AM CDT Emergency [facility] Emergency Room [id number] [place] [address] Clem Jones MD Abdominal Pain Discharge Disposition: [...] week 09/28/2022 How often do you attend buddhism or scientologist serv ices? Never 09/28/2022 Do [...] and heating? Not hard at all 10/18/2022 [facility] - Occupational [...] Sex Assigned at Male 06/21/2024 7:21 PM BEAD SUPERVISOR Legal Sex Male 8:10 AM CDT Gender [...] discharge from hospital Lifestyle No Sintia Zhao, industrial hire sales assistant Procedure Name Priority Date/Time Associated Diagnosis Comments ECG 12-LEAD STAT 10/11/2024 1:11 AM CDT LIPASE STAT 10/11/2024 12:51 AM CDT PROTHROMBIN TIME, VENOUS STAT 10/11/2024 12:51 AM CDT COMPREHENSIVE METABOLIC PANEL STAT 10/11/2024 12:51 AM CDT CBC W/DIFF AUTOMATED STAT 10/11/2024 12:51 AM CDT from Last 3 Months Results * ECG 12 lead (10/11/2024 1:11 AM CDT) 10/11/2024 1:11 AM CDT Narrative [facility] ([facility]) RAD - 10/17/2024 1:51 PM CDT [facility] Test Date: 2024-10-11 Pat Name: LIBERTAD BROWN Department: 85 Room: EXAM 202 Gender: Male Jewel Inserter: : 1980 Requested By: CLEM JONES Order Number: [id number] Reading MD: Kwadwo Dominguez Measurements Intervals [place] Rate: 72 P: 15 MA: 95 QRS: 48 QRSD: 109 T: 64 QT: 364 QTc: 398 Interpretive Statements SINUS RHYTHM WITH SINUS ARRHYTHMIA WITH SHORT MA INTERVAL INCOMPLETE RIGHT BUNDLE BRANCH BLOCK [90+ ms QRS DURATION, TERMINAL R IN V1/V2, 40+ ms S IN I/aVL/V4/V5/V6] Compared to ECG 01/03/2024 15:01:45 Incomplete right bundle-branch block now present Intraventricular conduction delay no longer present Procedure Note Kwadwo Dominguez MD - [facility]17[facility]: 2024-10-11 Pat Name: LIBERTAD BROWN Department: 85 Room: EXAM 202 Gender: Male Jewel Inserter: : 1980 Requested By: CLEM JONES Order Number: [id number] Reading MD: Kwadwo Dominguez Measurements Intervals [place] Rate: 72 P: 15 MA: 95 QRS: 48 QRSD: 109 T: 64 QT: 364 QTc: 398 Interpretive Statements SINUS RHYTHM WITH SINUS ARRHYTHMIA WITH SHORT MA INTERVAL INCOMPLETE RIGHT BUNDLE BRANCH BLOCK [90+ ms QRS DURATION, TERMINAL RIN V1/V2, 40+ ms S IN I/aVL/V4/V5/V6] Compared to ECG 01/03/2024 15:01:45 Incomplete right bundle-branch block now present Intraventricular conduction delay no longer present us Clem Jones MD ECG ORDERABLES Final R esult Performing Organization Address City/[facility]/ZIP Co de Phone Number [facility]) RAD * PROTIME/INR, VENOUS (10/11/2024 12:51 AM CDT) PROTIME 10.8 9.1 - 12.4 SEC 10/11/2024 1:17 AM CDT [facility] INR 0.9 10/11/2024 1:17 AM CDT [facility] Comment: Recommend INR ranges for Oral Anticoagulant Therapy: Mechanical Cardiac Values 2.5-3.5 All others indication 2.0-3.0 10/11/2024 12:5 1 AM CDT us Clem Jones MD LABORATORY Final R esult [facility] [address] [place] [address], [place] [phone] * (ABNORMAL) COMPREHENSIVE METABOLIC PANEL (10/11/2024 12:51 AM CDT) GLUCOSE 127(H) 70 - 99 MG/DL 10/11/2024 1:26 AM [facility] BUN 6(L) 7 - 18 MG/DL 10/11/2024 1:26 AM [facility] CREATININE S/P/B 0.96 0.7 - 1.3 MG/DL 10/11/2024 1:26 AM [facility] SODIUM S/P/B 143 136 - 145 MMOL/L 10/11/2024 1:26 AM [facility] POTASSIUM S/P/B 4.2 3.5 - 5.1 MMOL/L 10/11/2024 1:26 AM [facility] CHLORIDE S/P/B 105 100 - 108 MMOL/L 10/11/2024 1:26 AM [facility] CO2 26.5 21 - 32 MMOL/L 10/11/2024 1:26 AM [facility] CALCIUM S/P/B 9.5 8.5 - 10.1 MG/DL 10/11/2024 1:26 AM [facility] BILIRUBIN TOTAL S/P/B 0.6 0.2 - 1.2 MG/DL 10/11/2024 1:26 AM [facility] TOTAL PROTEIN S/P/B 7.6 6.4 - 8.2 G/DL 10/11/2024 1:26 AM [facility] ALBUMIN S/P/B 4.2 3.4 - 5.0 G/DL 10/11/2024 1:26 AM [facility] AST 28 15 - 37 U/L 10/11/2024 1:26 AM [facility] ALT 23 16 - 60 U/L 10/11/2024 1:26 AM [facility] ALKALINE PHOSPHATASE S/P/B 81 50 - 136 U/L 10/11/2024 1:26 AM CDT [facility] ANION GAP 11.5 5 - 15 MMOL/L 10/11/2024 1:26 AM CDT [facility] BUN CREATININE RATIO 6.2 6 - 26 10/11/2024 1:26 AM CDT [facility] A/G RATIO 1.2 1.0 - 2.0 RATIO 10/11/2024 1:26 AM CDT [facility] GFR ESTIMATE >90 >90 ML/MIN/1.7 3 M2 10/11/2024 1:26 AM CDT [facility] Comment: NOTE: eGFR is [...] Clem Jones MD LABORATORY Final R esult [facility] [address] [place] [address], [place] [phone] * (ABNORMAL) CBC W/DIFF AUTOMATED (10/11/2024 12:51 AM CDT) WBC 13.90(H) 4.4 - 11.0 x10'3/uL 10/11/2024 1:26 AM CDT [facility] RBC 4.98 4.50 - 5.90 x10'6/uL 10/11/2024 1:26 AM CDT [facility] HGB 14.1 14.0 - 17.5 G/DL 10/11/2024 1:26 AM CDT [facility] HCT 42.3 41.5 - 50.4 % 10/11/2024 1:26 AM CDT [facility] MCV 84.9 80.0 - 96.0 FL 10/11/2024 1:26 AM CDT [facility] MCH 28.3 26.5 - 31.4 PG 10/11/2024 1:26 AM T [facility] MCHC 33.3 31.9 - 34.8 G/DL 10/11/2024 1:26 AM T [facility] RDW 15.4(H) 12.3 - 14.3 % 10/11/2024 1:26 AM T [facility] PLT 314 151 - 353 x10'3/uL 10/11/2024 1:26 AM T [facility] MPV 11.0 9.7 - 11.9 FL 10/11/2024 1:26 AM T [facility] RBC MORPHOLOGY NORMAL 10/11/2024 1:26 AM T [facility] PLT MORPH. NORMAL 10/11/2024 1:26 AM T [facility] WBC MORPHOLOGY NORMAL 10/11/2024 1:26 AM T [facility] LYMPHOCYTES % 7.9(L) 15.8 - 45.0 % 10/11/2024 1:26 AM CDT [facility] NEUTROPHILS % 87.4(H) 42.1 - 71.9 % 10/11/2024 1:26 AM CDT [facility] MONOCYTES % 3.8(L) 5.7 - 12.5 % 10/11/2024 1:26 AM T [facility] EOSINOPHILS 0.1 0.0 - 5.6 % 10/11/2024 1:26 AM CDT [facility] BASOPHILS 0.4 0.0 - 1.3 % 10/11/2024 1:26 AM CDT [facility] ABS. NEUTROPHILS 12.15(H) 1.40 - 6.00 x10'3/uL 10/11/2024 1:26 AM CDT [facility] IMMATURE GRANS % 0.4 0.0 - 0.5 % 10/11/2024 1:26 AM CDT [facility] ABS. LYMPHOCYTES 1.10 0.80 - 4.70 x10'3/uL 10/11/2024 1:26 AM CDT [facility] 10/11/2024 12:5 1 AM CDT Clem Jones MD LABORATORY Final R esult Performing Organization Address City/[facility]/ZIP Co de Phone Number [facility] [address] [place] [address], [place] [phone] * LIPASE (10/11/2024 12:51 AM CDT) LIPASE 36 16 - 77 UNITS/L 10/11/2024 1:26 AM CDT [facility] 10/11/2024 12:5 1 AM CDT Clem Jones MD LABORATORY Final R esult Performing Organization Address City/[facility]/ZIP Co de Phone Number [facility] [address] [place] [address], [place] [phone] from Last 3 Months Insurance AISHA Advance [...] 6:07 PM 10/19/2019 4:11 PM Care Teams Material Reclaimer Relationship Specialty Start Date End Date Td Lopez MD PCP - General FAMILY PRACTICE 08/18/19
--- OUTSIDE RECORDS SUMMARY | 2024-12-06 15:51 | XMS_ITS | Clinical Summary ---
Author Organization [facility] Address [address] [place] [phone] Phone Care Team Providers Care Engineering Mathematician Name Role Phone Unavailable Primary Care Provider [...] on file Legal Sex Male 7:38 PM STRIPER Gender Identity Not on file Sexual Orientation Not on file Last Filed Vital Signs Vital Sign Reading Time Taken Comments Blood Pressure 119/84 07/11/2022 2:03 AM STRIPER Pulse 80 07/11/2022 2:03 AM STRIPER Temperature 36.3 C (97.4 F) 07/11/2022 2:03 AM STRIPER Respiratory Rate 18 07/11/2022 2:03 AM STRIPER Oxygen Saturation 97% 07/11/2022 2:03 AM STRIPER Inhaled Oxygen Concentration - - Weight 79.4 kg (175 lb) 07/10/2022 8:06 PM STRIPER Height 177.8 cm (5' 10) 07/10/2022 8:06 PM STRIPER Body Mass Index 25.11 07/10/2022 8:06 PM STRIPER Plan of Treatment Health Maintenance Due Date Last Done Comments HPV VACCINES (1 - Male 3-dos e series) 1996 HEPATITIS B VACCINES (1 of 3 - 19+ 3-dose series) 2000 COVID-19 Vaccine (4 - 2023-2 5 season) 2024 10/29/2021, 11/02/2020, 10/05/2020 INFLUENZA VACCINE (#1) 2024 , 02/29/2020, 02/09/2018 DTAP/TDAP/TD VACCINES (2 - T d or Tdap) 10/30/2031 10/29/2021 [place] [address] [employer] MEDICAID [place]ICAID [place]
--- OUTSIDE RECORDS SUMMARY | 2024-12-06 15:51 | XMS_ITS | Encounter Summary ---
Author Organization [facility] Healthcare Address [address] [place] [address] Care Team Providers Care Heavy Truck Technician Name Role Phone Td Lopez MD Primary Care Provider + Angie Woodard MD Unavailable [phone] Vimal Woodruff MD Unavailable [phone] PastorAlannah MA Unavailable [phone] PastorAlannah fair MA Unavailable [phone] PastorAlannah fair MA Unavailable [phone] Eun Arana RN Unavailable [phone] Lakshmi Garcia LPN Unavailable [phone] Niki Burns MA Unavailable Encounter Details Date Type Department Care Team (Late st Contact Info) Description 12/30/[address] [facility] Health Information Management [address] [place] [address] Scanning, Provider Social History Tobacco Use Types Packs/Day Years Used Date Smoking Tobacco: Every Day Cigarettes Smokeless Tobacco: Never Alcohol Use Standard Drinks/Week Comments Not Currently 0 (1 standard drink = 0.6 oz pur e alcohol) [facility] Utilities Answer Date Recorded In the past 12 months has [employer] electric, gas, oil, or water company threatened [...] any clubs o r organizations such as mu-ism groups, unions, fraternal or athletic groups, or [...] in a mcc (including now)? No 09/21/2023 Personal Safety Answer Date Recorded Have you ever been in or are you currently in a harmful physical or emotional relationship or is someone making you feel afraid or unsafe? Denies 01/01/2024 Sex and Gender Information Value Date Recorded Sex Assigned at Not on file Legal Sex Male 3:38 AM CONFERENCE SPECIALIST Gender Identity Not on file Sexual Orientation [...] on filedocumented in this encounter Care Teams Heavy Truck Technician Relationship Specialty Start Date End Date Td Lopez MD [address] [address] PCP - General Family Medicine 11/09/20 Angie Woodard MD [address] [facility] [address] [place] [address] Consulting Physician Gastroenterology 07/17/21 Vimal Woodruff MD [address] [facility] [address] [place] [address] Consulting Physician Gastroenterology 02/10/22 Alannah Baumann MA [address] [place] [address] [address] [place] [address] ACO Care Brand Recorder 12/31/23 01/05/24 Alannah Baumann MA [address] [place] [address] [address] [place] [address] ACO Care Brand Recorder 06/29/24 06/30/24 Alannah Baumann MA [address] [place] [address] [address] [place] [address] ACO Care Brand Recorder 08/03/24 08/03/24 Eun Arana, RN [address] [place] [address] [address] [place] [address] Tumbling Instructor 08/17/24 08/25/24 Lakshmi Garcia LPN [address] [place] [address] [address] [place] [address] Tumbling Instructor 10/05/24 10/05/24 Niki Burns MA [address] [place] [address] [address] [place] [address] ACO Care Brand Recorder 10/18/24 10/19/24 documented as of this encounter
--- OUTSIDE RECORDS SUMMARY | 2024-12-06 15:51 | XMS_ITS | Clinical Summary ---
Author Organization [facility] Address [address] [facility] [address] Care Team Providers Care Payable Processor Name Role Phone Alee Zhao MD Primary Care Provider [phone] Source Comments [facility],non-owned Affiliates and Associated Physician Practices is amultiple site organization consisting of ambulatory clinics and hospital sitesin [place], [place], [place] and [place]. This disclosure is being madepursuant to the Care Everywhere program and may not contain all information available regarding this patient. Last updated 18.[facility] Allergies Active Allergy Reactions Criticality Noted Date [...] on file Legal Sex Male 7:46 PM CONSUMER BANKER Gender Identity Not on file Sexual Orientation Not on file Last Filed Vital Signs Vital Sign Reading Time Taken Comments Blood Pressure 120/71 03/17/2019 5:03 PM CONSUMER BANKER Pulse 75 03/17/2019 5:03 PM CONSUMER BANKER Temperature 36.9 C (98.4 F) 03/17/2019 2:00 PM CONSUMER BANKER Respiratory Rate 17 03/17/2019 5:03 PM CONSUMER BANKER Oxygen Saturation 99% 03/17/2019 5:03 PM CONSUMER BANKER Inhaled Oxygen Concentration - - Weight 77.1 kg (170 lb) 03/17/2019 2:00 PM CONSUMER BANKER Height 177.8 cm (5' 10) 03/17/2019 2:00 PM CONSUMER BANKER Body Mass Index 24.39 03/17/2019 2:00 PM CONSUMER BANKER Plan of Treatment Health Maintenance Due Date [...] RFLX NAAT QUANT STAT 03/27/2018 9:12 PM CONSUMER BANKER HIV-1 HIV-2 ANTIGEN/ANTIBODY STAT 03/27/2018 9:12 PM CONSUMER BANKER from Last 3 Months or Most Recently Relevant to Health Maintenance Results * HIV-1 HIV-2 ANTIGEN/ANTIBODY (03/27/2018 9:12 PM CONSUMER BANKER) HIV Antigen/Antibod y 1 & 2 Non-reacti ve Non-react nemesio 03/27/2018 10:17 PM CONSUMER BANKER [facility] Comment: Neither HIV-1 p24 Antigen nor HIV-1/HIV-2 Antibodies are detected. Blood BLOOD SPECIMEN / Unknown Venipuncture / Unknown 03/27/2018 9:12 PM CONSUMER BANKER 03/27/2018 9:21 PM CONSUMER BANKER us Davi Patrick MD LAB - HEMATOLOGY ORDERABLES Fi nal Result Performing Organization Address [facility] Co de Phone Number [address] [phone] * HEPATITIS C AB SCREEN RFLX NAAT QUANT (03/27/2018 9:12 PM CONSUMER BANKER) Hepatitis C Antibody Non-react nemesio Non-reac tive 03/27/2018 10:20 PM CONSUMER BANKER [facility] Comment: Hepatitis C Antibody screen indicates no serologic evidence of past or current infection with Hepatitis C Virus. Patients with unexplained liver disease who are immunocompromised or suspected of having acute Hepatitis C infection may benefit from Nucleic Acid Test (RINKU) for Hepatitis C Viral RNA to confirm Hepatitis C status. Blood BLOOD SPECIMEN / Unknown Venipuncture / Unknown 03/27/2018 9:12 PM CONSUMER BANKER 03/27/2018 9:21 PM CONSUMER BANKER us Davi Patrick MD LAB - CHEMISTRY ORDERABLES Fin al Result Performing Organization Address [facility] Co de Phone Number [address] [phone] from Last 3 Months or Most Recently Relevant to Health Maintenance Insurance [facility] Care Teams Payable Processor Relationship Specialty Start Date End Date Alee Zhao MD [address] [place] [phone] PCP - General Family Medicine 03/25/18
--- OUTSIDE RECORDS SUMMARY | 2024-12-06 15:51 | XMS_ITS | Encounter Summary ---
Author Organization [facility] Healthcare Address [address] [place] [address] Care Team Providers Care Edge Stainer Machine Name Role Phone Td Lopez MD Primary Care Provider + Angie Woodard MD Unavailable [phone] Vimal Woodruff MD Unavailable [phone] PastorAlannah MA Unavailable [phone] PastorAlannah fair MA Unavailable [phone] PastorAlannah fair MA Unavailable [phone] Eun Arana RN Unavailable Lakshmi Garcia LPN Unavailable [phone] Niki Burns MA Unavailable Encounter Details Date Type Department Care Team (Late st Contact Info) Description 12/21/2017 Documentation [id number] [place] [id number] Shannan Farfan, JOHN Social History Tobacco Use Types Packs/Day Years Used Date Smoking Tobacco: Every Day Sex and Gender Information Value Date Recorded Sex Assigned at Not on file Legal Sex Male 3:38 AM EMERGENCY DISPATCHER Gender Identity Not on file Sexual Orientation [...] COVID: Suspected 06/27/2021 06/27/2021 06/27/2021 12:53 PM EMERGENCY DISPATCHER COVID19 06/27/2021 06/27/2021 07/08/2021 3:05 AM EMERGENCY DISPATCHER COVID: Recovered Comment:Added based on recent COVID infection. 07/08/2021 07/14/2021 11/05/2021 3:05 AM C DT COVID: Suspected 05/20/2022 05/20/2022 05/20/2022 2:32 AM EMERGENCY DISPATCHER COVID: Suspected 09/20/2023 09/20/2023 09/20/2023 9:26 PM CDT COVID: Suspected 10/04/2023 10/04/2023 10/04/2023 3:55 PM CDT documented as of this encounter Care Teams Edge Stainer Machine Relationship Specialty Start Date End Date Td Lopez MD [facility] [address] PCP - General Family Medicine 11/09/20 Angie Woodard MD [address] [facility] [address] [place] [address] Consulting Physician Gastroenterology 07/17/21 Vimal Woodruff MD [address] [facility] [address] [place] [address] Consulting Physician Gastroenterology 02/10/22 Alannah Baumann MA [address] [place] [address] ACO Care First Aid Instructor 12/31/23 01/05/24 Alannah Baumann MA [address] [place] [address] ACO Care First Aid Instructor 06/29/24 06/30/24 Alannah Baumann MA [address] [place] [address] [address] [place] [address] ACO Care First Aid Instructor 08/03/24 08/03/24 Eun Arana RN [address] [place] [address] [address] [place] [address] Concrete Tile Machine Operator 08/17/24 08/25/24 Lakshmi Garcia LPN [address] [place] [address] [address] [place] [address] Concrete Tile Machine Operator 10/05/24 10/05/24 Niki Burns MA [address] [place] [address] [address] [place] [address] ACO Care First Aid Instructor 10/18/24 10/19/24 documented as of this encounter
[2024-12-06 15:53] LABS: Add Urine Microscopic? YES; Appearance Urine Turbid (Clear); Glucose Urine UA Negative (Negative); Leukocyte Esterase Ur Trace LEU/UL (Negative); Nitrate Urine Negative (Negative); Non Pathogenic Casts 0-2; Specific Grav Ur 1.022 (1.001-1.035)
[2024-12-06] MEDS: ONDANSETRON INJ 4 MG/2 ML VIAL IV PUSH (15:54)
[2024-12-06] MEDS: MORPHINE SULFATE (*CRX) 4 MG/ML INJ IV PUSH (15:55)
[2024-12-06] MEDS: FAMOTIDINE 20 MG/2 ML VIAL IV PUSH (15:55)
[2024-12-06] MEDS: BELLADONNA ALK/PHENOB ELIX 10 ML, MAG HYDROX/ALUMINUM HYD/SIMETH 30 ML, LIDOCAINE 2% VI... PO (15:55)
[2024-12-06 16:16] LABS: Cannabinoid Screen Urine Positive (Negative)
[2024-12-06 17:00] VITALS: BP 120/85; PULSE 80; RESP 15; O2SAT 97
== END 2024-12-06 17:18 | disposition home or self-care (01) ==
PROVIDERS: Physician Assistant; Emergency Provider Emergency Medicine; PCP Family Medicine
DX: K20.90 Esophagitis, unspecified without bleeding (principal); K52.9 Noninfective gastroenteritis and colitis, unspecified; F17.210 Nicotine dependence, cigarettes, uncomplicated; F41.9 Anxiety disorder, unspecified; F32.A Depression, unspecified; Z87.442 Personal history of urinary calculi; I10 Essential (primary) hypertension; K21.9 Gastro-esophageal reflux disease without esophagitis
CPT/HCPCS: 36415; 74177; 80053; 80307; 81001; 83690; 85025; 96374; 96375; 99284; A9270; J2270; J2405; Q9967

== ENCOUNTER 2025-01-25 15:41 | Emergency (ER) | payer MEDICAID, SELFPAY ==
--- OUTSIDE RECORDS SUMMARY | 2023-09-21 09:30 | XMS_ITS ---
Author Organization [facility] Address [address] [place] [address] Care Team Providers Care Oenologist Name Role Phone John TUCKER, Td Primary Care Provider Unavaila jenny FIGUEROA PLANT ACCOUNTANT, NATALIYA Unavailable IFRAH TUCKER, BRODERICK Unavailable REASON FOR VISIT ERCP INPT Encounters Encounter Location Date Provider Diagnosis [facility] - Op [address] Sched[address] [place], [place] [id number] 09/21/2023 BRODERICK RG Plan Of Treatment No Information Progress Notes * Donovan BROWN MDOB: 2 (44 yo M)Acc No.[id number]:09/21/2023 Patient: Donovan HASSAN Provider: William Rg MD, FASGE :1980 A ge:43 Y S ex:Male Date:09/21/2023 Address:[address] [id number] Pcp:Td Lopez MD * * Electronic signature of ROSETTE RG MD, MD on 01/25/2025 at 05:24 PM EDT Sign off status: Pending * Provider: William Rg MD, FASGE Date: 0 09/21/2023 Generated for Printi ng/Faxing/eTransmitting on: 0 01/25/2025 05:24 PM EDT
--- OUTSIDE RECORDS SUMMARY | 2023-09-23 10:00 | XMS_ITS ---
Author Organization [facility] Address [address] [place] [address] Care Team Providers Care Cellulose Insulation Helper Name Role Phone John TUCKER, Td Primary Care Provider Unavaila jenny FIGUEROA VOLUNTEER SERVICES ASSISTANT, NATALIYA Unavailable IFRAH TUCKER, BRODERICK Unavailable REASON FOR VISIT ERCP stent pull INPT Encounters Encounter Location Date Provider Diagnosis [facility] - Op [address] Sched[address] [place], [place] [id number] 09/23/2023 BRODERICKNICKY RG Plan Of Treatment No Information Progress Notes * Donovan BROWN MDOB: 2 (44 yo M)Acc No.[id number]:09/23/2023 Patient: Donovan HASSAN Gaby Provider: William Rg MD, FASGE :1980 A ge:43 Y S ex:Male Date:09/23/2023 Address:[address] [id number] Pcp:Td Lopez MD * * Electronic signature of ROSETTE RG MD, MD on 01/25/2025 at 05:23 PM EDT Sign off status: Pending * Provider: William Rg MD, FASGE Date: 0 09/23/2023 Generated for Printi ng/Faxing/eTransmitting on: 0 01/25/2025 05:23 PM EDT
--- OUTSIDE RECORDS SUMMARY | 2024-02-29 04:00 | XMS_ITS ---
Author Organization [facility] Address [address] [place] [address] Care Team Providers Care Hydraulic Chair Assembler Name Role Phone John TUCKER, Td Primary Care Provider Tucker FIGUEROA NP, NATALIYA Porras REASON FOR VISIT FU ER Visit Encounters Encounter Location Date Provider Diagnosis [facility] [address] [place] [address] 02/29/2024 NATALIYA FIGUEROA Plan Of Treatment No Information Progress Notes * Donovan BROWN MDOB: 2 (44 yo M)Acc No.[id number]:02/29/2024 Progress Notes Patient: Donovan HASSAN Appointment Provider: Enrrique Figueroa CNP :1980 A ge:43 Y S ex:Male Date:02/29/2024 [facility] [facility] Pcp:Td Lopez MD Subjective: * Chief Complaints: * 1 . FU ER Visit. * Medical History: Objective: * Vitals: Assessment: Plan: * Treatment: * * Electronic signature of AMANDA FIGUEROA NP, MSN RETIREMENT MANAGER-BC on 01/25/2025 at 05:23 PM EDT Sign off status: Pending * Appointment Provider: Enrrique Figueroa CNP Date: 1 Generated for Printing/Faxing/eTransmitting on: 0 01/25/2025 05:23 PM EDT
--- NOTE | ~2025-01-25 | CT_ITS ---
Donovan Pruittanna EXAMINATION: CT abdomen pelvis w con COMPARISON: None HISTORY: upper abdomen pain-hx of pancreatitis TECHNIQUE: Axial images were obtained through the abdomen, pelvis post administration of IV contrast. Oral contrast was also administered. Coronal reconstruction images were obtained from the axial views. CT scan performed using dose optimization techniques including the following automated exposure control; adjustment of mA and/or kV; use of iterative reconstruction technique. Automatic exposure control was used to reduce radiation dose. Permanent radiation dose record is archived to PACS. FINDINGS: CT abdomen: LUNG BASES: The lung bases are clear. The visualized portions of the heart and pericardium are unremarkable. LIVER: Mild hepatic steatosis. Subcentimeter probable liver cysts. Portal vein patent. No intrahepatic biliary duct dilatation. SPLEEN: Unremarkable. KIDNEYS: Right Kidney: Unremarkable. No calculi. No hydronephrosis. Left Kidney: Unremarkable. No calculi. No hydronephrosis ADRENAL GLANDS: Unremarkable. PANCREAS: Unremarkable. GALLBLADDER/BILIARY: Postcholecystectomy. STOMACH AND ESOPHAGUS: Visualized stomach and esophagus within normal limits. BOWEL/MESENTERY: Moderate fecal content, no colitis or diverticulitis appendix normal. Mesentery normal. No dilated small bowel loops. ADENOPATHY/RETROPERITONEUM: No lymphadenopathy. AORTA/VASCULATURE: Normal caliber aorta. FREE FLUID OR FREE AIR: No free fluid.. CT pelvis: SOLID ORGANS/REPRODUCTIVE: Unremarkable. BLADDER: Within normal limits. OSSEOUS STRUCTURES: No acute osseous abnormality.No suspicious lesions. OVERLYING SOFT TISSUES: Right small fat-containing umbilical hernia. IMPRESSION: 1. No etiology identified to explain the patient's symptoms. Follow-up suggested if symptoms persist. Reviewed, dictated and finalized at location A. IMPRESSION: 1. No etiology identified to explain the patient's symptoms. Follow-up suggeste d if symptoms persist.
[2025-01-25 16:10] LABS: Hematocrit 44.6 % (42.0-52.0); Hemoglobin 15.0 g/dL (14.0-18.0); Immature Granulocyte Percent A 0.5 % (0-0.5); Lymphocytes Absolute Auto 2.48 K/mm3 (0.9-3.2); Mean Corpuscular HGB Conc 33.6 g/dl (32-36); Mean Corpuscular Hemoglobin 29.9 pg (26-34); Mean Corpuscular Volume 88.8 fl (80-100); Nucleated Red Blood Cells Absolute Auto 0.000 K/mm3 (0.0-0.012); Nucleated Red Blood Cells Perc 0.0 % (0.0-0.2); Platelet Count Result 274 k/mm3 (150-375); Red Blood Count 5.02 M/mm3 (4.6-6.20); White Blood Count 12.9 K/mm3 (4.5-10.0)
[2025-01-25 16:21] LABS: Add Urine Microscopic? NO; Appearance Urine Clear (Clear); Glucose Urine UA Negative (Negative); Leukocyte Esterase Ur Negative LEU/UL (Negative); Nitrate Urine Negative (Negative); Specific Grav Ur 1.014 (1.001-1.035)
[2025-01-25 16:22] LABS: Alanine Aminotransferase 19 U/L (6-50); Albumin Level 4.4 g/dL (3.5-5.1); Alkaline Phosphatase 87 U/L (38-126); Anion Gap 8 mmol/L (4-12); Aspartate Amino Transferase 25 U/L (17-59); Bilirubin,Total 0.4 mg/dL (0.2-1.3); Blood Urea Nitrogen 11 mg/dL (9-20); Calcium 9.1 mg/dL (8.4-10.2); Carbon Dioxide 24 mmol/L (22-30); Chloride 107 mmol/L (98-107); Estimated CRCL calculation 83 ml/min; Estimated Glomerular Filt Rate > 60; Glucose 110 mg/dL (65-110); Lipase 399 U/L (23-300); Potassium 3.9 mmol/L (3.4-5.0); Sodium 139 mmol/L (137-145); Total Protein 7.3 g/dL (6.3-8.2)
--- OUTSIDE RECORDS SUMMARY | 2025-01-25 16:23 | XMS_ITS | Patient Health Record ---
Author Organization [facility] Address [address] [facility] [address] [place] [address] Care Team Providers Care Customer Counter Associate Name Role Phone John TUCKER, Td Primary Care Provider Tucker FIGUEROA SONG AND DANCE PERFORMER, NATALIYA Unavailable Allergies Allergen (clinical drug ingredient) [...] 1 tablet at bedtime Orally Once a day; Duration: 30 days Active Hyoscyamine Sulfate 0.125 MG DISSOLVE 1 TABLET ON THE TONGUE 4 TIMES A DAY NEEDED; Duration: 90 Active Oscimin 0.125 MG 1 tablet under the t ongue and allow to dissolve as needed Sublingual Three times a day; Duration: 90 days Active HYDROcodone-Acetaminophen 5-325 MG 1 tablet as needed Orally every 6 hrs Active Ondansetron 4 MG 1 tablet on the tong ue and allow to dissolve Orally Once a day Active Problems Problem Type SNOMED Code ICD Code Onset Dates Problem Status W/U Status Risk Notes Problem Chronic pancreatitis (350133170) Other chronic pancreatitis (K86.1) Active confirmed Plan Of Treatment No Information Insurance Providers Payer Name Payer Address Payer Phone Subscriber Number Group Number Insured Name Patient Relationship to Insured Coverage Start Date Coverage End Date [address] [id number] [phone] [id number] Donovan Bailey Self - patient is the insured Medical (General) History Medical History History ICD Code chronic pancreatitis cyclic vomiting hyperemesis cannabis Surgical History Surgery Date(Month/Year) cholecystectomy ERCP
--- OUTSIDE RECORDS SUMMARY | 2025-01-25 16:23 | XMS_ITS | Clinical Summary ---
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 Name Role Phone Unavailable Primary Care Provider [...] on file Legal Sex Male 7:38 PM [employer] Gender Identity Not on file Sexual Orientation Not on file Last Filed Vital Signs Vital Sign Reading Time Taken Comments Blood Pressure 119/84 07/11/2022 2:03 AM [employer] WORK[employer] Pulse 80 07/11/2022 2:03 AM [employer] Temperature 36.3 C (97.4 F) 07/11/2022 2:03 AM [employer] WORK[employer] Respiratory Rate 18 07/11/2022 2:03 AM [employer] WORK[employer] Oxygen Saturation 97% 07/11/2022 2:03 AM [employer] WORK[employer] Inhaled Oxygen Concentration - - Weight 79.4 kg (175 lb) 07/10/2022 8:06 PM [employer] Height 177.8 cm (5' 10) 07/10/2022 8:06 PM [employer] Body Mass Index 25.11 07/10/2022 8:06 PM [employer] WORK[employer] Plan of Treatment Health Maintenance Due Date Last Done Comments HEPATITIS B VACCINES (1 of 3 - 19+ 3-dose series) 2000 HPV VACCINES (1 - 3-dose SCD M series) 2008 INFLUENZA VACCINE (#1) 2024 , 02/29/2020, 02/09/2018 COVID-19 Vaccine (4 - 2024-2 6 season) 2025 10/29/2021, 11/02/2020, 10/05/2020 DTAP/TDAP/TD VACCINES (2 - T d or Tdap) 10/30/2031 10/29/2021 Insurance [facility] MEDICAID MEDICAID [place]
--- OUTSIDE RECORDS SUMMARY | 2025-01-25 16:23 | XMS_ITS | Clinical Summary ---
Author Organization [facility] Address [address] [place] [address] Care Team Providers Care Instrument Worker Name Role Phone Td Lopez MD Primary Care Provider + Angie Woodard MD Unavailable [phone] Vimal Woodruff MD Unavailable [phone] Allergies Active Allergy Reactions Criticality Noted Date [...] needed for pain 20 tablet 5 Active HYDROcodone-acetami nophen (NORCO) 5-325 mg per tabletIndications:P ain Take 1 tablet by mouth every 8 (eight) hours as needed for pain 12 tablet 5 Active famotidine (PEPCID) 40 mg tabletIndications:G astroesophageal reflux disease without esophagitis Take 1 tablet (40 mg total) by mouth daily 90 tablet 1 5 10/07/[address] (PROTONIX) 40 mg EC tabletIndications:T reatment of Non-Bleeding Gastric Disorder Take 1 tablet (40 mg total) by mouth daily 90 tablet 1 5 Active dicyclomine (BENTYL) 20 mg tabletIndications:E nterocolitis Take 1 tablet (20 mg total) by mouth 2 (two) times a day as needed (Abdominal cramping) 30 tablet 5 Active ketorolac (TORADOL) 10 mg tablet Take 1 tablet (10 mg total) by mouth every 6 (six) hours as needed for pain 20 tablet 5 Active ondansetron ODT (ZOFRAN-ODT) 4 mg disintegrating tablet Take 1 tablet (4 mg total) by mouth every 6 (six) hours as needed for nausea or vomiting 20 tablet 5 Active Active Problems Problem Noted Date Diagnosed Date Intractable nausea and vomiting 12/01/2024 Abdominal pain 10/03/2024 Acute pancreatitis, unspecif ied complication status, unspecified pancreatitis type 08/10/2024 Neck pain 03/25/2024 Assessment & Plan (03/25/2024 11:50 AM IT APPLICATION DEVELOPMENT MANAGER): - suspect just muscle strain - will check xray - offered PT but pt refused. Protein-calorie malnutrition, moderate 4 Abdominal pain, generalized 09/19/2023 Assessment & Plan (09/25/2023 12:23 PM CDT): - improving - will give small amount of norco until pt heals from his procedure - f/u with GI Current use of nursing home anticoagulation 023 Assessment & Plan (09/25/2023 12:23 PM CDT): - stable - continue eliquis Assessment & Plan (03/20/2023 11:08 AM IT APPLICATION DEVELOPMENT MANAGER): - restart eliquis due to life long need for anticoagulation History of thrombosis 03/20/2023 Assessment & Plan (09/25/2023 12:22 PM CDT): - stable - continue eliquis Assessment & Plan (03/20/2023 11:08 AM IT APPLICATION DEVELOPMENT MANAGER): - restart eliquis due to life [...] famotidine Assessment & Plan (03/20/2023 11:08 AM IT APPLICATION DEVELOPMENT MANAGER): - stable - continue current medication [...] eval. Assessment & Plan (03/25/2024 11:49 AM IT APPLICATION DEVELOPMENT MANAGER): - ref to derm for eval [...] pain Assessment & Plan (03/25/2024 11:49 AM IT APPLICATION DEVELOPMENT MANAGER): - poor control - continue hyosciamine, famotidine, zofran - ref to GI for continued treatment Assessment & Plan (03/20/2023 11:07 AM IT APPLICATION DEVELOPMENT MANAGER): - stable - continue current medication [...] prn Assessment & Plan (07/15/2019 11:44 AM IT APPLICATION DEVELOPMENT MANAGER): - stable - continue bentyl and [...] medication Assessment & Plan (07/15/2019 11:44 AM IT APPLICATION DEVELOPMENT MANAGER): - stable - continue creon Annual [...] able Assessment & Plan (07/15/2019 11:46 AM IT APPLICATION DEVELOPMENT MANAGER): - encourage healthy diet, exercise - check labs - encouraged quitting smoking Enteritis 02/18/2019 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[facility] /HCC) 10/18/2018 Tobacco use disorder 10/18/2018 Overview (07/15/2019): - pt smoking 1ppd x 20 yrs - interested in quitting but finds his GI sx worsened as he cuts back. Assessment & Plan (07/15/2019 11:37 AM IT APPLICATION DEVELOPMENT MANAGER): - encouraged pt to quit smoking [...] GI Assessment & Plan (03/20/2023 11:07 AM IT APPLICATION DEVELOPMENT MANAGER): - stable - continue current medication [...] 09/17/202209/08 Assessment & Plan (03/20/2023 11:08 AM IT APPLICATION DEVELOPMENT MANAGER): - stable off meds - will [...] 09/25/2023 Assessment & Plan (03/26/2021 11:41 AM IT APPLICATION DEVELOPMENT MANAGER): - stable today - continue current [...] lexapro Assessment & Plan (07/15/2019 11:38 AM IT APPLICATION DEVELOPMENT MANAGER): - stable - continue current plan [...] medication Assessment & Plan (07/15/2019 11:38 AM IT APPLICATION DEVELOPMENT MANAGER): - stable - continue omeprazole and carafate Viral illness 07/08/2019 02/12/2021 Assessment & Plan (07/09/2019 9:12 AM IT APPLICATION DEVELOPMENT MANAGER): Medrol Dosepak as directed. Recommended Mucinex [...] this as this is not a viable nursing home solution - will ref to pain [...] medication Assessment & Plan (07/15/2019 11:36 AM IT APPLICATION DEVELOPMENT MANAGER): - controlled - continue current plan [...] Encounters Date Type Department Care Team Description 01/22/2025 7:28 AM CDT - 01/22/2025 11:05 AM CDT Emergency [address] [address] Freddy Yao DO Chronic abdominal pain (Primary Dx) Discharge Disposition: Discharge to home or self care 12/06/2024 Orders Only [facility] Health Information Management [address] [place] [address] Scanning, Provider 12/01/2024 12:42 AM CDT - 12/03/2024 3:20 PM CDT Hospital Encounter [address] [address] Domenic Arias MD [facility], MD Alexandra Ayala Fariah Habib, DO Jain, Anshu, MD Enteritis (Primary Dx); Abdominal pain; Cyclic vomiting syndrome; Hyperemesis Discharge Disposition: Discharge to home or self care 11/26/2024 2:02 AM CDT - 11/26/2024 4:25 AM CDT Emergency [facility] Emergency Department [facility] [place] [address] Blue Warren MD Abdominal pain (Primary Dx); [...] drink = 0.6 oz pur e alcohol) [facility] Utilities Answer Date Recorded In the past 12 months has [employer], [employer], oil, or water [employer] threatened to shut off services in your home? No 12/01/2024 Social Connection and Isolation Panel Answer Date Recorded In a typical week, how many times do you talk on the phone with family, friends, or neighbors? More than three times a week 12/01/2024 How often do you get togethe r with friends or relatives? More than three times a week 12/01/2024 How often do you attend chur ch or jainism services? Never 12/01/2024 Do you [...] in a detention (including now)? No 09/21/2023 PHQ-9 Answer Date [...] in the past [address] [facility], were you homeless or living in a detention (including now)? No 12/01/2024 Personal Safety Answer Date Recorded Have you ever been in or are you currently in a harmful physical or emotional relationship or is someone making you feel afraid or unsafe? Denies 01/22/2025 Sex and Gender Information Value Date Recorded Sex Assigned at Not on file Legal Sex Male 3:38 AM IT APPLICATION DEVELOPMENT MANAGER Gender Identity Not on file Sexual Orientation Not on file Obstetrics History Last Filed Vital Signs Vital Sign Reading Time Taken Comments Blood Pressure 114/67 01/22/2025 9:30 AM CDT Pulse 81 01/22/2025 9:30 AM CDT Temperature 36.8 C (98.2 F) 01/22/2025 5:06 AM CDT Respiratory Rate 17 01/22/2025 9:30 AM CDT Oxygen Saturation 100% 01/22/2025 9:30 AM CDT Inhaled Oxygen Concentration - - Weight 70.3 kg (154 lb 15.7 oz) 01/22/2025 5:06 AM CDT Height 177.8 cm (5' 10) 01/22/2025 5:06 AM CDT Body Mass Index 22.24 01/22/2025 5:06 AM CDT Plan of Treatment Health Maintenance Due Date Last Done Comments Hepatitis C Screening 1981 Hepatitis B Screening 1999 Pneumococcal vaccine <65 (1 of 2 - PCV) 2000 HPV Vaccines (1 - 3-dose SCD M series) 2008 Regular Well Visit/Exam 18-64 09/24/2024, 09/17/2022, 02/29/2020 Covid-19 Vaccine (4 - 2024-2 6 season) 2025 10/29/2021, 11/02/2020, 10/05/2020 Influenza Vaccine (#1) 2025 , 03/20/2023, 02/08/2022, Additional history exists Depression Screening 08/23/2025 08/23/2024, 03/25/2024, 03/25/2024, Additional history exists DTaP/Tdap/Td Vaccine (2 - Td or Tdap) 10/30/2031 10/29/2021 Varicella Vaccines Discontinued Medical Devices Explanted Type Area Quad Stayer Device Identifier Shelf Expiration Date Model / Serial / Lot [employer] [id number] Connell Flexi-Stent 7fr 5cm Small Pigtail Flexible .035in Stent - [id number] Implanted:Qty: 1 on 09/18/2018 by Vimal Woodruff MD at [facility] Explanted:Qty: 1 on 09/20/2018 at [facility] Stent N/A: Pancreas [employer] 06/10/2023 [id number] / / [id number] Conmed Gina [id number] Clarence Viabil 10mm 8.5fr 6cm 200cm Fully Covered Self Expand Pull - [id number] - [id number] Implanted:Qty: 1 on 09/18/2018 by Vimal Woodruff MD at [facility] Explanted:Qty: 1 on 09/20/2018 at [facility] Stent N/A: Bile Duct Conmed Gina 06/29/2021 [id number] / [id number] / [employer] Connell Flexi-Stent 7fr 9cm Small Pigtail Flexible .035in Stent 6575 - [id number] Implanted:Qty: 1 on 02/07/2022 by Vimal Woodruff MD at [facility] Explanted:Qty: 1 on 02/10/2022 by Vimal Woodruff MD at [facility] Stent N/A: Pancreas [employer] 09/07/2026 [id number] / / [id number] [employer] Gina Wallflex 10mm X 60mm Fully Covered Biliary [id number] - [id number] Implanted:Qty: 1 on 02/07/2022 by Vimal Woodruff MD at [facility] Explanted:Qty: 1 on 02/10/2022 by Vimal Woodruff MD at [facility] Stent N/A: Bile Duct [employer] Gina 11/04/2023 [id number] / / [id number] [employer] [facility] Connell Flexi-Stent 7fr 9cm Small Pigtail Flexible .035in Stent 6575 - [id number] Implanted:Qty: 1 on 09/21/2023 by Vimal Woodruff MD at [facility] Explanted:Qty: 1 on 09/23/2023 by Vimal Woodruff MD at [facility] Stent N/A: Pancreas [employer]-Value 03/11/2028 [id number] / / [id number] Description:Not present at b eginning of case. Self migrated out [employer] Gina Wallflex 10mm X 60mm Fully Covered Biliary [id number] - [id number] Implanted:Qty: 1 on 09/21/2023 by Vimal Woodruff MD at [facility] Explanted:Qty: 1 on 09/23/2023 by Vimal Woodruff MD at [facility] Stent N/A: Bile Duct [employer] Gina 08/02/2025 [id number] / / [id number] Procedures Procedure Name Priority Date/Time Associated Diagnosis Comments TROPONIN T HIGH-SENSITIVITY 4-HR Timed 01/22/2025 9:[address] ABDOMEN PELVIS W CONTRAST ED 01/22/2025 7:14 AM CDT SEPSIS LACTATE WITH REFLEX STAT 01/22/2025 7:02 AM CDT TROPONIN T HIGH-SENSITIVITY 2-HOUR Timed 01/22/2025 7:02 AM CDT ECG 12-LEAD STAT 01/22/2025 5:23 AM CDT EGFR STAT 01/22/2025 5:21 AM CDT DIFFERENTIAL AUTO STAT 01/22/2025 5:2 1 AM CDT DRUGS OF ABUSE SCREEN, URINE WITHOUT CONFIRMATION Routine 01/22/2025 5:21 AM CDT TROPONIN T HIGH-SENSITIVITY SERIES (BASELINE, 2HR, 4HR, 6HR) STAT 01/22/2025 5:21 AM CDT LIPASE STAT 01/22/2025 5:21 AM CDT COMPREHENSIVE METABOLIC PANEL STAT 01/22/2025 5:21 AM CDT CBC WITH AUTO DIFFERENTIAL STAT 01/22/2025 5:21 AM CDT URINALYSIS AND REFLEX TO MICROSCOPIC AND CULTURE STAT 01/22/2025 5:21 AM CDT SCAN - RADIOLOGY/IMAGING 12/06/2024 [place] [facility]/INJURED PATIENT INIT 30-74 MIN [...] ECG 12-LEAD STAT 11/25/2024 11:02 PM CDT from Last 3 Months Results * Troponin T high-sensitivity 4-hour (01/22/2025 9:04 AM CDT) Trop T hs 7 <=22 ng/L Comment: Interpretive Data For further hscTnT resources including the diagnostic algorithm and an aid in interpretation, copy and paste this link: https://nrl.testcatalog.org/show/hsTrop Current Interpretive Data last revised 2020. Trop T hs delta 1 ng/L NEEL SMITH Trop T hs interp Insignificant NEEL SMITH Blood 01/22/2025 9:04 AM CDT 01/22/2025 9:06 AM CDT us Freddy Bell MD LAB BLOOD ORDERABLES Final Result NEEL SMITH [address] [facility] Department [place] [address] * CT Abdomen Pelvis W Contrast (01/22/2025 7:14 AM CDT) Anatomical Region Laterality Modality Body N/A Computed Tomogra phy 01/22/2025 7:19 AM CDT Narrative 01/22/2025 7:32 AM CDT EXAM DESCRIPTION: CT ABDOMEN PELVIS W CONTRAST REASON FOR STUDY: Abdominal pain, acute, nonlocalized Pt here with c/o abd pain along with 3-4 emesis, pt states he has had chills, pt rates pain 10/10, no pain meds taken lpta. Denies fever, dysuria and diarrhea, pt states s/s began tonight after eating dinner. Hx: cyclic vomiting syndrome, gerd, pancreatitis, cholecystectomy TECHNIQUE: CT scan of the abdomen and pelvis performed with intravenous and without oral contrast using helical scanning technique with dynamic intravenous contrast injection. Reconstructed coronal and sagittal MPR images reviewed. All images stored on PACS. Automated exposure control was used as a dose optimization technique for this examination. CONTRAST TYPE/DOSE: 93mL of IOVERSOL 350 MG IODINE/ML INTRAVENOUS SYRINGE injected via intravenous COMPARISON: CT of the abdomen and pelvis dated 12/01/2024. FINDINGS: LOWER CHEST: No significant pulmonary abnormalities. No effusion. LIVER: Normal size. Diffuse hepatic steatosis. No identified cystic or solid masses. GALLBLADDER: Surgically absent. BILE DUCTS: Small amount of pneumobilia is redemonstrated compatible with prior sphincterotomy. No intrahepatic or extrahepatic ductal dilatation. SPLEEN: Normal size. No focal lesions. PANCREAS: No identified cystic or solid masses. No significant calcifications. No adjacent inflammation or peripancreatic fluid collections. Pancreatic duct not dilated. ADRENALS: Normal. KIDNEYS/URINARY TRACT: Mild cortical scarring/thinning is again seen at the inferior pole of the right kidney. No identified significant cystic or solid masses. No visualized stones. No hydronephrosis or hydroureter. Symmetric enhancement. Urinary bladder is unremarkable. GI: No dilated bowel loops. No obvious wall thickening. Normal appendix. No significant diverticular disease. PERITONEUM: No ascites or free air. Small fat containing umbilical hernia. RETROPERITONEUM: No mass or adenopathy. REPRODUCTIVE: No significant abnormality. VASCULATURE: Mild aortoiliac atherosclerosis. No abdominal aortic aneurysm. MUSCULOSKELETAL: No acute abnormality. OTHER: No other abnormality. IMPRESSION: 1. No acute intra-abdominal/pelvic abnormality. 2. Diffuse hepatic steatosis. 3. Additional findings and postsurgical changes; as detailed. THIS IS AN ELECTRONICALLY VERIFIED FINAL REPORT 01/22/2025 7:32 AM - Electronically signed by Calvin Morejon M.D. T: Report ID: [id number] Reading Location: [place] [address] Procedure Note Calvin Morejon Nasir, DO - 01/22/2025 EXAM DESCRIPTION: CT ABDOMEN PELVIS W CONTRAST REASON FOR STUDY: Abdominal pain, acute, nonlocalized Pt here with c/o abd pain along with 3-4 emesis, pt states he has hadchills, pt rates pain 10/10, no pain meds taken lpta. Denies fever, dysuria and diarrhea, pt states s/s began tonight after eating dinner. Hx: cyclic vomiting syndrome, gerd, pancreatitis, cholecystectomy TECHNIQUE: CT scan of the abdomen and pelvis performed with intravenousand without oral contrast using helical scanning technique with dynamic intravenous contrast injection. Reconstructed coronal and sagittal MPRimages reviewed. All images stored on PACS. Automated exposure control was usedas a dose optimization technique for this examination. CONTRAST TYPE/DOSE: 93mL of IOVERSOL 350 MG IODINE/ML INTRAVENOUSSYRINGE injected via intravenous COMPARISON: CT of the abdomen and pelvis dated 12/01/2024. FINDINGS: LOWER CHEST: No significant pulmonary abnormalities. Noeffusion. LIVER: Normal size. Diffuse hepatic steatosis. No identified cystic or solid masses. GALLBLADDER: Surgically absent. BILE DUCTS: Small amount of pneumobilia is redemonstrated compatiblewith prior sphincterotomy. No intrahepatic or extrahepatic ductal dilatation. SPLEEN: Normal size. No focal lesions. PANCREAS: No identified cystic or solid masses. No significant calcifications. No adjacent inflammation or peripancreatic fluidcollections. Pancreatic duct not dilated. ADRENALS: Normal. KIDNEYS/URINARY TRACT: Mild cortical scarring/thinning is again seen atthe inferior pole of the right kidney. No identified significant cystic orsolid masses. No visualized stones. No hydronephrosis or hydroureter. Symmetric enhancement. Urinary bladder is unremarkable. GI: No dilated bowel loops. No obvious wall thickening. Normalappendix. No significant diverticular disease. PERITONEUM: No ascites or free air. Small fat containing umbilicalhernia. RETROPERITONEUM: No mass or adenopathy. REPRODUCTIVE: No significant abnormality. VASCULATURE: Mild aortoiliac atherosclerosis. No abdominal aorticaneurysm. MUSCULOSKELETAL: No acute abnormality. OTHER: No other abnormality. IMPRESSION: 1. No acute intra-abdominal/pelvic abnormality. 2. Diffuse hepatic steatosis. 3. Additional findings and postsurgical changes; as detailed. THIS IS AN ELECTRONICALLY VERIFIED FINAL REPORT 01/22/2025 7:32 AM - Electronically signed by Calvin Morejon M.D. T: Report ID: [id number] Reading Location: [place] [address] Freddy Yao DO IMG CT PROCEDURES Final Res ult * Troponin T high-sensitivity 2-hour (01/22/2025 7:02 AM CDT) Trop T hs <6 <=22 ng/L Comment: Interpretive Data For further hscTnT resources including the diagnostic algorithm and an aid in interpretation, copy and paste this link: https://nrl.testcatalog.org/show/hsTrop Current Interpretive Data last revised 2020. Trop T hs delta 0 ng/L NEEL Trop T hs interp Insignificant NEEL Blood 01/22/2025 7:02 AM CDT 01/22/2025 7:04 AM CDT Freddy Bell MD LAB BLOOD ORDERABLES Final Result Performing Organization Address [facility] Co de Phone Number NEEL [address] [facility] Department [place] [address] * Sepsis Lactate w/ Reflex (01/22/2025 7:02 AM CDT) Sepsis Lactate 1.1 0.7 - 2.0 mmol/L Blood 01/22/2025 7:02 AM CDT 01/22/2025 7:04 AM CDT Freddy Yao DO LAB BLOOD ORDERABLES Final Result Performing Organization Address [facility] Co de Phone Number NEEL [facility] [place] [address] * ECG 12 lead (01/22/2025 5:23 AM CDT) Ventricular Rate EKG/Min 79 BPM [facility] Atrial Rate 79 BPM [facility] [place]-Interval (MSEC) 116 ms [facility] QRS-Interval (MSEC) 104 ms [facility] QT-Interval (MSEC) 374 ms [facility] QTc 428 ms [facility] P [place] 65 degrees [facility] R [place] 62 degrees [facility] T [place] 66 degrees [facility] Diagnosis Normal sinus rhythm with sinus arrhythmia Incomplete right bundle branch block ST-changes When compared with ECG of 25-NOV-2024 23:02, Significant changes have occurred Confirmed by SULTAN DE JESUS M.D. ([id number]) on 01/22/2025 8:44:23 AM [facility] 01/22/2025 5:23 AM CDT 01/22/2025 8:44 AM CDT us Freddy Yao DO ECG ORDERABLES Final Resul t Performing Organization Address [facility] de Phone Number [facility] * Troponin T high-sensitivity series (baseline, 2hr, 4hr, 6hr) (01/22/2025 5:21 AM CDT) Pathologist [facility] Trop T hs 6 <=22 ng/L Comment: Interpretive Data For further hscTnT resources including the diagnostic algorithm and an aid in interpretation, copy and paste this link: https://nrl.testcatalog.org/show/[email or web address] Current Interpretive Data last revised 2020. Blood 01/22/2025 5:21 AM CDT 01/22/2025 5:25 AM CDT Freddy Yao DO LAB BLOOD ORDERABLES Final Result Performing Organization Address [facility] Co de Phone Number NEEL [facility] Department [place] [address] * eGFR (01/22/2025 5:21 AM CDT) Pathologist [facility] eGFR 84 >=60 mL/min/1. 73 m2 Comment: Interpretive Data [...] interpretive data was last reviewed 2021. Blood 01/22/2025 5:21 AM CDT 01/22/2025 5:25 AM CDT Freddy Yao DO LAB BLOOD ORDERABLES [facility] [address] [facility] Department [place] [address] * (ABNORMAL) Differential, auto (01/22/2025 5:21 AM CDT) [facility] Neutrophil abs 15.14(H) 1.50 - 6.50 K/cumm Imm gran abs 0.11(H) 0.00 - 0.10 K/cumm [facility] Lymphocyte abs 2.97 0.80 - 3.30 K/cumm [facility] Monocyte abs 1.83(H) 0.20 - 0.80 K/cumm [facility] Eosinophil abs 0.17 0.00 - 0.50 K/cumm [facility] Basophil abs 0.10 0.00 - 0.10 K/cumm [facility] Neutrophil pct 74.6 % [facility] Comment: Interpretive [...] was last revised on 2017. Lymphocyte pct 14.6 % [facility] Comment: Interpretive Data Percent cell count reference ranges are not reported, since discordance with absolute values may lead to misinterpretation of CBC data. Current Interpretive Data was last revised on 2017. Monocyte pct 9.0 % [facility] Comment: Interpretive Data Percent cell count reference ranges are not reported, since discordance with absolute values may lead to misinterpretation of CBC data. Current Interpretive Data was last revised on 2017. Eosinophil pct 0.8 % [facility] Data was last revised on 2017. Blood 01/22/2025 5:21 AM CDT 01/22/2025 5:25 AM CDT Freddy aYo DO LAB BLOOD ORDERABLES Final Result [facility] [address] [facility] Department [place] [address] * (ABNORMAL) Urinalysis reflex to microscopic and culture Urine (01/22/2025 5:21 AM CDT) Color, ur Yellow Yellow Clarity, ur Cloudy(A) Clear NEEL Specific gravity, ur 1.021 1.003 - 1.030 [facility] pH, urine 6.5 [facility] Comment: Interpretive Data U rine pH is affected by diet, medications, systemic acid-base disturbances, and renal tubular function. pH may affect urinary stone formation. For example, urine pH below 6.0 may help reduce the tendency for calcium phosphate stones and pH greater than 6.0 may reduce the tendency for uric acid stone formation. Source: [facility] Current Interpretive Data was last revised on 2017 Protein, ur ql Negative Negative [facility] Glucose, ur ql Negative Negative [facility] Ketones, ur Negative Negative [facility] Bilirubin, ur Negative Negative [facility] Blood, ur Negative Negative [facility] Urobilinogen, ur 2.0(A) <2.0 mg/dL [facility] Nitrite, ur Negative Negative [facility] Leukocyte esterase, ur Negative Negative [facility] UA reflex comment Reflex conditions for microscopic UA and culture not met. [facility] Urine 01/22/2025 5:21 AM CDT 01/22/2025 5:25 AM CDT Freddy Yao DO LAB MICROBIOLOGY - GENERAL ORDERABLES Final Result [address] Department [place] [address] * (ABNORMAL) CBC with auto differential (01/22/2025 5:21 AM CDT) WBC 20.32(H) 3.80 - 9.90 K/cumm Hgb 15.4 13.0 - 17.5 g/dL [facility] Hct 46.5 38.9 - 50.3 % [facility] Plt 300 150 - 400 K/cumm [facility] MPV 9.8 9.1 - 12.3 fL [facility] RBC 5.28 4.30 - 5.80 M/cumm [facility] MCV 88.1 81.3 - 96.4 fL [facility] MCH 29.2 27.1 - 33.3 pg [facility] MCHC 33.1 32.3 - 35.7 g/dL [facility] RDW CV 14.8 11.1 - 14.9 % [facility] RDW SD 47.6 35.7 - 48.1 fL [facility] NRBC abs 0.00 0.00 - 0.01 K/cumm [facility] [facility] Blood Venous blood specimen / Unknown 01/22/2025 5:21 AM CDT 01/22/2025 5:25 AM CDT Freddy Yao DO LAB BLOOD ORDERABLES Final Result NEEL [address] [facility] Department [place] [address] * (ABNORMAL) Drugs of Abuse Screen, Urine without Confirmation (01/22/2025 5:21 AM CDT) [facility] Amphetamine, ur Not Detected CutOff 500ng/mL Comment: Interpretive Data - Amphetamines: Samples containing greater than 500 ng/mL d-methamphetamine or other cross-reacting amphetamine compounds are reported as positive. Amphetamine immunoassays are subject to significant false positive rates due to cross-reactivity of non-amphetamine drugs. Confirmatory testing required for definitive results. Current Interpretive Data was last reviewed 2022. Barbiturates, ur Not Detected CutOff 200ng/mL [facility] Comment: Interpretive Data - Barbiturates: Samples containing greater than 200 ng/mL secobarbital or other cross-reacting barbiturate compounds are reported as positive. False positive and false negative results are possible. Confirmatory testing required for definitive results. Current Interpretive Data was last reviewed 2022. Benzodiazepines, ur Not Detected CutOff 100ng/mL [facility] Comment: Interpretive Data - Benzodiazepines: Samples [...] Data was last reviewed 2022. Urine Creatinine 194 mg/dL NEEL Comment: Interpretive Data Urine Creatinine: < 10 mg/dL is extremely dilute = or > 10 but < 20 mg/dL is dilute = or > 20 mg/dL is normal Current Interpretive Data was last revised on 2017. Urine 01/22/2025 5:21 AM CDT 01/22/2025 5:25 AM CDT Narrative [facility] - 01/22/2025 5:54 AM CDT Drug of Abuse screening is performed by immunoassay for medical purposes only. This is not to be used for Pain Management purposes. Freddy Cedric Yao LAB URINE ORDERABLES Final Result Performing Organization Address [facility] Co de Phone Number [address] [address] * Lipase (01/22/2025 5:21 AM CDT) Pathologist [facility] Lipase 60 10 - 99 Units/L Blood Venous blood specimen / Unknown 01/22/2025 5:21 AM CDT 01/22/2025 5:25 AM CDT Freddy Steele Najma LAB BLOOD ORDERABLES Final Result Performing Organization Address [facility] de Phone Number [address] [address] * Comprehensive metabolic panel (01/22/2025 5:21 AM CDT) [facility] Sodium 143 135 - 145 mmol/L Potassium, pl 3.7 3.3 - 4.9 mmol/L [facility] Chloride 103 97 - 110 mmol/L [facility] CO2 26 22 - 32 mmol/L [facility] Anion gap 14 2 - 15 mmol/L [facility] BUN 8 6 - 25 mg/dL [facility] Creatinine 1.11 0.80 - 1.30 mg/dL [facility] Glucose 140 70 - 199 mg/dL [facility] [...] interpretive data was last revised 2022. Calcium 9.9 8.5 - 10.3 mg/dL [facility] Bilirubin, total 0.5 0.1 - 1.2 mg/dL [facility] Protein, pl 7.2 6.5 - 8.5 g/dL [facility] Albumin 4.6 3.5 - 5.0 g/dL [facility] Alk phos 90 40 - 130 Units/L [facility] ALT 16 7 - 55 Units/L [facility] AST 21 10 - 50 Units/L [facility] Blood 01/22/2025 5:21 AM CDT 01/22/2025 5:25 AM CDT Freddy Yao DO LAB BLOOD ORDERABLES Final Result Performing Organization Address City/State/[facility] Co de Phone Number NEEL [address] [facility] Department [place] [address] * SCAN - RADIOLOGY/IMAGING (12/06/2024) Anatomical Region Laterality Modality Other us Provider Scanning Final Result * [place] CRITICAL CARE ILL/INJURED PATIENT INIT 30-74 MIN [...] LAB BLOOD ORDERABLES Final R esult NEEL [facility] [address] Department [place] [address] * (ABNORMAL) Differential, auto (12/01/2024 1:49 AM CDT) Neutrophil abs 8.27(H) 1.50 - 6.50 K/cumm Imm gran abs 0.04 0.00 - 0.10 K/cumm [facility] Lymphocyte abs 1.58 0.80 - 3.30 K/cumm [facility] Monocyte abs 0.97(H) 0.20 - 0.80 K/cumm [facility] Eosinophil abs 0.03 0.00 - 0.50 K/cumm [facility] Basophil abs 0.05 0.00 - 0.10 K/cumm [facility] Neutrophil pct 75.5 % [facility] Comment: Interpretive Data Percent cell count reference ranges are not reported, since discordance with absolute values may lead to misinterpretation of CBC data. Current Interpretive Data was last revised on 2017. Imm gran pct 0.4 % [facility] Comment: Interpretive Data Percent cell count reference ranges are not reported, since discordance with absolute values may lead to misinterpretation of CBC data. Current Interpretive Data was last revised on 2017. Lymphocyte pct 14.4 % [facility] Comment: Interpretive Data Percent cell count reference ranges are not reported, since discordance with absolute values may lead to misinterpretation of CBC data. Current Interpretive Data was last revised on 2017. Monocyte pct 8.9 % [facility] Comment: Interpretive Data Percent cell count reference ranges are not reported, since discordance with absolute values may lead to misinterpretation of CBC data. Current Interpretive Data was last revised on 2017. Eosinophil pct 0.3 % [facility] Comment: Interpretive Data Percent cell count reference ranges are not reported, since discordance with absolute values may lead to misinterpretation of CBC data. Current Interpretive Data was last revised on 2017. Basophil pct 0.5 % [facility] Comment: Interpretive Data Percent cell count reference ranges are not reported, since discordance with absolute values may lead to misinterpretation of CBC data. Current Interpretive Data was last revised on 2017. Blood 12/01/2024 1:49 AM CDT 12/01/2024 2:08 AM CDT Domenic Arias MD LAB BLOOD ORDERABLES Final R esult Performing Organization Address City/[facility]/ZIP Co de Phone Number [facility] [address] [employer] [place], [place] [id number] * (ABNORMAL) CBC with auto differential (12/01/2024 1:49 AM CDT) Pathologist [facility] WBC 10.94(H) 3.80 - 9.90 K/cumm Hgb 13.5 13.0 - 17.5 g/dL [facility] Hct 40.4 38.9 - 50.3 % [facility] Plt 242 150 - 400 K/cumm [facility] MPV 10.5 9.1 - 12.3 fL [facility] RBC 4.59 4.30 - 5.80 M/cumm [facility] MCV 88.0 81.3 - 96.4 fL [facility] MCH 29.4 27.1 - 33.3 pg [facility] MCHC 33.4 32.3 - 35.7 g/dL [facility] RDW CV 15.7(H) 11.1 - 14.9 % [facility] RDW SD 50.5(H) 35.7 - 48.1 fL [facility] NRBC abs 0.00 0.00 - 0.01 K/cumm [facility] Blood 12/01/2024 1:49 AM CDT 12/01/2024 2:08 AM CDT Domenic Arias MD LAB BLOOD ORDERABLES Final R esult [facility] [address] Department of [employer] [place], [place] [id number] * Lipase (12/01/2024 1:49 AM CDT) Pathologist [facility] Lipase 23 10 - 99 Units/L Blood 12/01/2024 1:49 AM CDT 12/01/2024 2:08 AM CDT Domenic Arias MD LAB BLOOD ORDERABLES Final R esult [facility] [address] Department [place] [address] * (ABNORMAL) Comprehensive metabolic panel (12/01/2024 1:49 AM CDT) Sodium 142 135 - 145 mmol/L Potassium, pl 4.2 3.3 - 4.9 mmol/L [facility] Chloride 106 97 - 110 mmol/L [facility] CO2 23 22 - 32 mmol/L [facility] Anion gap 13 2 - 15 mmol/L [facility] BUN 6 6 - 25 mg/dL [facility] Creatinine 0.86 0.80 - 1.30 mg/dL [facility] Glucose 99 70 - 199 mg/dL [facility] Comment: Interpretive Data Fasting glucose [...] 2022. Calcium 9.3 8.5 - 10.3 mg/dL [facility] Bilirubin, total 0.6 0.1 - 1.2 mg/dL [facility] Protein, pl 6.2(L) 6.5 - 8.5 g/dL [facility] Albumin 4.0 3.5 - 5.0 g/dL [facility] Alk phos 76 40 - 130 Units/L [facility] ALT 17 7 - 55 Units/L [facility] AST 20 10 - 50 Units/L [facility] Blood 12/01/2024 1:49 AM CDT 12/01/2024 2:08 AM CDT Domenic Arias MD LAB BLOOD ORDERABLES Final R esult Performing Organization Address [facility] Co de Phone Number NEEL [facility] [address] Department [place] [address] * ECG 12 lead (11/30/2024 10:57 PM CDT) 11/30/2024 10:5 7 PM CDT Narrative [facility] - 12/01/2024 7:47 AM CDT Vent Rate: 64 bpm RR Interval: 926 msec [place] Interval: 91 msec QRS Duration: 104 msec QT Interval: 382 msec QTC Interval: 392 msec P-R-T [place]: 12 - 72 - 72 degrees IMPRESSION: SINUS RHYTHM WITH SINUS ARRHYTHMIA WITH SHORT [place] INTERVAL INCOMPLETE RIGHT BUNDLE BRANCH BLOCK BORDERLINE ECG Electronically Signed By: Mich Quintana MD PhD Domenic Arias MD ECG ORDERABLES Final Result Performing Organization Address [facility] Phone Number Meta [facility] * CT Abdomen Pelvis W Contrast [...] clear. Heart size normal. No effusion. LIVER/BILIARY: Ahhj-xe-yhbyrqpa steatosis. Unchanged pneumobilia. GALLBLADDER: Absent. SPLEEN: Normal. [...] Aryan Jovel M.D. AR: GIOVANNA Report ID: [id number] Reading Location: [place] [address] Procedure Note Aryan Jovel MD - 11/26/2024 [...] clear. Heart size normal. No effusion. LIVER/BILIARY: Pisr-hy-loqooigr steatosis. Unchanged pneumobilia. GALLBLADDER: Absent. SPLEEN: Normal. [...] Aryan Jovel M.D. AR: GIOVANNA Report ID: [id number] Reading Location: [id number] us Blue Warren MD IMG CT PROCEDURES F inal Result * Troponin T high-sensitivity 2-hour (11/26/2024 1:13 AM CDT) Trop T hs 8 <=22 ng/L Comment: Interpretive Data For further hscTnT resources including the diagnostic algorithm and an aid in interpretation, copy and paste this link: https://nrl.testcatalog.org/show/hsTrop Current Interpretive Data last revised 2020. Testing performed by: [address] [address] Trop T hs delta -3 ng/L NEEL Comment:Testing performed by : [address] [address] Trop T hs interp Insignificant NEEL Comment:Testing performed by : [address] [address] Blood 11/26/2024 1:13 AM CDT 11/26/2024 1:25 AM CDT us Blue Warren MD LAB BLOOD ORDERABLE S Final Result [facility] [address] [facility] Department [place] [address] * Urinalysis reflex to microscopic and culture Urine (11/25/2024 11:13 PM CDT) Color, ur Yellow Yellow Comment:Testing performed by : [address] [address] Clarity, ur Clear Clear NEEL Comment:Testing performed by : [address] [address] Specific gravity, ur 1.020 1.003 - 1.030 NEEL Comment:Testing performed by : [address] [address] pH, urine 6.0 NEEL Comment: Interpretive Data U rine pH is affected by diet, medications, systemic acid-base disturbances, and renal tubular function. pH may affect urinary stone formation. For example, urine pH below 6.0 may help reduce the tendency for calcium phosphate stones and pH greater than 6.0 may reduce the tendency for uric acid stone formation. Source: [facility] [employer] Current Interpretive Data was last revised on 2017 Testing performed by: [facility], [address] [place] [address], [place]., [address] Protein, ur ql Negative Negative NEEL Comment:Testing performed by : [facility], [address] [place] [address], [place]., [address] Glucose, ur ql Negative Negative NEEL Comment:Testing performed by : [address], [place]., [address] Ketones, ur Negative Negative NEEL Comment:Testing performed by : [address], [place]., [address] Bilirubin, ur Negative Negative NEEL Comment:Testing performed by : [address], [place]., [address] Blood, ur Negative Negative NEEL Comment:Testing performed by : [address], [place]., [address] Urobilinogen, ur <2.0 <2.0 mg/dL NEEL Comment:Testing performed by : [address], [place]., [address] Nitrite, ur Negative Negative NEEL Comment:Testing performed by : [address], [place]., [address] Leukocyte esterase, ur Negative Negative NEEL Comment:Testing performed by : [address], [place]., [address] UA reflex comment Reflex conditions for microscopic UA and culture not met. NEEL Comment:Testing performed by : [address], [place]., [address] Urine 11/25/2024 11:1 3 PM CDT 11/25/2024 11:24 PM CDT Blue Warren MD LAB MICROBIOLOGY - GENERAL ORDERABLES Final Result Performing Organization Address City/State/[facility] de Phone Number NEEL [address] [facility] [place] [address] * Troponin T high-sensitivity series (baseline, 2hr, 4hr, 6hr) (11/25/2024 11:06 PM CDT) Pathologist [facility] Trop T hs 11 <=22 ng/L Comment: Interpretive Data For further hscTnT resources including the diagnostic algorithm and an aid in interpretation, copy and paste this link: https://nrl.testcatalog.org/show/hsTrop Current Interpretive Data last revised 2020. Testing performed by: [facility], [address] [place] [address]., [address] Blood 11/25/2024 11:0 6 PM CDT 11/25/2024 11:24 PM CDT Blue Warren MD LAB BLOOD ORDERABLE S Final Result Performing Organization Address [facility] Co de Phone Number NEEL [address] [facility] Department [place] [address] * eGFR (11/25/2024 11:06 PM CDT) [facility] eGFR >90 >=60 mL/min/1. 73 m2 [...] was last reviewed 2021. Testing performed by: [address] [address] Blood 11/25/2024 11:0 6 PM CDT 11/25/2024 11:24 PM CDT Blue Warren MD LAB BLOOD ORDERABLE S Final Result [facility] [address] [facility] Department [place] [address] * (ABNORMAL) Differential, auto (11/25/2024 11:06 PM CDT) Neutrophil abs 13.59(H) 1.50 - 6.50 K/cumm Comment:Testing performed by : [address] [address] Imm gran abs 0.11(H) 0.00 - 0.10 K/cumm NEEL Comment:Testing performed by : [address] [address] Lymphocyte abs 1.24 0.80 - 3.30 K/cumm NEEL Comment:Testing performed by : [address] [address] Monocyte abs 0.90(H) 0.20 - 0.80 K/cumm NEEL Comment:Testing performed by : [address] [address] Eosinophil abs 0.02 0.00 - 0.50 K/cumm NEEL Comment:Testing performed by : [address] [address] Basophil abs 0.05 0.00 - 0.10 K/cumm NEEL Comment:Testing performed by : [address] [address] Neutrophil pct 85.4 % NEEL Comment: Interpretive Data Percent cell count reference ranges are not reported, since discordance with absolute values may lead to misinterpretation of CBC data. Current Interpretive Data was last revised on 2017. Testing performed by: [address] [address] Imm gran pct 0.7 % [facility] Comment: Interpretive Data Percent cell count reference ranges are not reported, since discordance with absolute values may lead to misinterpretation of CBC data. Current Interpretive Data was last revised on 2017. Testing performed by: [address] [address] Lymphocyte pct 7.8 % [facility] Comment: Interpretive Data Percent cell count reference ranges are not reported, since discordance with absolute values may lead to misinterpretation of CBC data. Current Interpretive Data was last revised on 2017. Testing performed by: [address] [address] Monocyte pct 5.7 % [facility] Comment: Interpretive Data Percent cell count reference ranges are not reported, since discordance with absolute values may lead to misinterpretation of CBC data. Current Interpretive Data was last revised on 2017. Testing performed by: [address] [address] Eosinophil pct 0.1 % [facility] Comment: Interpretive Data Percent cell count reference ranges are not reported, since discordance with absolute values may lead to misinterpretation of CBC data. Current Interpretive Data was last revised on 2017. Testing performed by: [address] [address] Basophil pct 0.3 % NEEL Comment: Interpretive Data Percent cell count reference ranges are not reported, since discordance with absolute values may lead to misinterpretation of CBC data. Current Interpretive Data was last revised on 2017. Testing performed by: [address] [address] Blood 11/25/2024 11:0 6 PM CDT 11/25/2024 11:24 PM CDT us Blue Warren MD LAB BLOOD ORDERABLE S Final Result NEEL [address] [facility] Department [place] [address] * (ABNORMAL) CBC with auto differential (11/25/2024 11:06 PM CDT) [facility] WBC 15.91(H) 3.80 - 9.90 K/cumm Comment:Testing performed by : [address], [address] Hgb 15.1 13.0 - 17.5 g/dL NEEL Comment:Testing performed by : [address], [address] Hct 44.2 38.9 - 50.3 % NEEL Comment:Testing performed by : [address], [address] Plt 300 150 - 400 K/cumm NEEL Comment:Testing performed by : [address], [address] MPV 9.7 9.1 - 12.3 fL NEEL Comment:Testing performed by : [address], [address] RBC 5.26 4.30 - 5.80 M/cumm NEEL Comment:Testing performed by : [address], [address] MCV 84.0 81.3 - 96.4 fL NEEL Comment:Testing performed by : [address], [address] MCH 28.7 27.1 - 33.3 pg NEEL Comment:Testing performed by : [address], [address] MCHC 34.2 32.3 - 35.7 g/dL NEEL Comment:Testing performed by : [address], [address] RDW CV 15.2(H) 11.1 - 14.9 % NEEL Comment:Testing performed by : [address], [address] RDW SD 46.3 35.7 - 48.1 fL NEEL Comment:Testing performed by : [address], [address] NRBC abs 0.00 0.00 - 0.01 K/cumm NEEL SMITH Comment:Testing performed by : [address] [address] Blood Venous blood specimen / Unknown 11/25/2024 11:06 PM CDT 11/25/2024 11:24 PM CDT Blue Warren MD LAB BLOOD ORDERABLE S Final Result Performing Organization Address [facility] Co de Phone Number [address] [place] [address] * Lipase (11/25/2024 11:06 PM CDT) Pathologist [facility] Lipase 24 10 - 99 Units/L Comment:Testing performed by : [address] [address] Blood Venous blood specimen / Unknown 11/25/2024 11:06 PM CDT 11/25/2024 11:24 PM CDT Blue Warren MD LAB BLOOD ORDERABLE S Final Result Performing Organization Address [facility] de Phone Number [address] [address] * (ABNORMAL) Comprehensive metabolic panel (11/25/2024 11:06 PM CDT) Pathologist [facility] Sodium 140 135 - 145 mmol/L Comment:Testing performed by : [address] [address] Potassium, pl 4.1 3.3 - 4.9 mmol/L NEEL SMIHT Comment:Testing performed by : [address] [address] Chloride 102 97 - 110 mmol/L NEEL SMITH Comment:Testing performed by : [address] [address] CO2 24 22 - 32 mmol/L NEEL SMITH Comment:Testing performed by : [address] [address] Anion gap 14 2 - 15 mmol/L NEEL SMITH Comment:Testing performed by : [address] [address] BUN 10 6 - 25 mg/dL NEEL Comment:Testing performed by : [address] [address] Creatinine 1.01 0.80 - 1.30 mg/dL NEEL Comment:Testing performed by : [address] [address] Glucose 115 70 - 199 mg/dL NEEL [...] last revised 2022. Testing performed by: [address] [address] Calcium 10.5(H) 8.5 - 10.3 mg/dL NEEL Comment:Testing performed by : [address] [address] Bilirubin, total 0.4 0.1 - 1.2 mg/dL NEEL Comment:Testing performed by : [address] [address] Protein, pl 7.4 6.5 - 8.5 g/dL NEEL Comment:Testing performed by : [address] [address] Albumin 4.5 3.5 - 5.0 g/dL NEEL Comment:Testing performed by : [address] [address] Alk phos 89 40 - 130 Units/L NEEL Comment:Testing performed by : [address] [address] ALT 19 7 - 55 Units/L NEEL Comment:Testing performed by : [address], [place]., [address] AST 21 10 - 50 Units/L NEEL SMITH Comment:Testing performed by : [facility], [address] [place] [address]., [address] Blood 11/25/2024 11:0 6 PM CDT 11/25/2024 11:24 PM CDT us Blue Warren MD LAB BLOOD ORDERABLE S Final Result Performing Organization Address City/[facility]/ZIP Co de Phone Number NEEL [address] [facility] Department [place] [address] * ECG 12 lead (11/25/2024 11:02 PM CDT) Ventricular Rate EKG/Min 74 BPM [facility] Atrial Rate 74 BPM [facility] [place]-Interval (MSEC) 80 ms [facility] QRS-Interval (MSEC) 96 ms [facility] QT-Interval (MSEC) 354 ms [facility] QTc 392 ms [facility] P [place] -18 degrees [facility] R [place] 32 degrees [facility] T [place] 56 degrees [facility] Diagnosis Sinus rhythm with sinus arrhythmia with short [place] Otherwise normal ECG When compared with ECG of 13-OCT-2024 03:54, No significant change was found Confirmed by DARIEL CARLOS M.D. ([id number]) on 11/26/2024 10:02:21 PM [facility] 11/25/2024 11:0 2 PM CDT 11/26/2024 10:02 PM CDT us Blue Warren MD ECG ORDERABLES Fin al Result Performing Organization Address City/[facility]/ZIP Co de Phone Number [facility] Maya's Mom [facility] from Last 3 Months Insurance ID[employer] [facility] IDMA Advance Directives For more information, please contact: [phone] * Full Code (Latest Code Status on [...] 12:50 PM 11/16/2023 7:54 PM Care Teams Instrument Worker Relationship Specialty Start Date End Date dT Lopez MD [address] [address] PCP - General Family Medicine 11/09/20 Angie Woodard MD [address] [facility] [address] [place] [address] Consulting Physician Gastroenterology 07/17/21 Vimal Woodruff MD [address] [facility] [address] [place] [address] Consulting Physician Gastroenterology 02/10/22
--- OUTSIDE RECORDS SUMMARY | 2025-01-25 16:24 | XMS_ITS | Clinical Summary ---
Author Organization [facility] [employer] Address [address] [place] [address] Care Team Providers Care Optometrist President/Practice Owner Name Role Phone Alee Zhao MD Primary Care Provider [phone] Source Comments [facility] [employer],non-owned Affiliates and Associated Physician Practices is amultiple site organization consisting of ambulatory clinics and hospital sitesin [place], [place], [place] and [place]. This disclosure is being madepursuant to the Care Everywhere program and may not contain all information available regarding this patient. Last updated 18.[facility] [employer] Allergies Active Allergy Reactions Criticality Noted Date [...] on file Legal Sex Male 7:46 PM TEST EVALUATOR Gender Identity Not on file Sexual Orientation Not on file Last Filed Vital Signs Vital Sign Reading Time Taken Comments Blood Pressure 120/71 03/17/2019 5:03 PM TEST EVALUATOR Pulse 75 03/17/2019 5:03 PM TEST EVALUATOR Temperature 36.9 C (98.4 F) 03/17/2019 2:00 PM TEST EVALUATOR Respiratory Rate 17 03/17/2019 5:03 PM TEST EVALUATOR Oxygen Saturation 99% 03/17/2019 5:03 PM TEST EVALUATOR Inhaled Oxygen Concentration - - Weight 77.1 kg (170 lb) 03/17/2019 2:00 PM TEST EVALUATOR Height 177.8 cm (5' 10) 03/17/2019 2:00 PM TEST EVALUATOR Body Mass Index 24.39 03/17/2019 2:00 PM TEST EVALUATOR Plan of Treatment Health Maintenance Due Date Last Done Comments LIPID TESTING 1981 DTAP/TDAP/TD VACCINES (1 - Tdap) 2000 HEPATITIS B VACCINE (1 of 3 - 19+ 3-dose series) 2000 HPV VACCINE (1 - 3-dose SCDM series) 2008 DEPRESSION SCREENING 05/11/2024 COVID-19 VACCINE (1 - 2023-2 5 season) 2025 INFLUENZA VACCINE (#1) 2025 ZOSTER VACCINE (1 [...] RFLX NAAT QUANT STAT 03/27/2018 9:12 PM TEST EVALUATOR HIV-1 HIV-2 ANTIGEN/ANTIBODY STAT 03/27/2018 9:12 PM TEST EVALUATOR from Last 3 Months or Most Recently Relevant to Health Maintenance Results * HIV-1 HIV-2 ANTIGEN/ANTIBODY (03/27/2018 9:12 PM TEST EVALUATOR) HIV Antigen/Antibod y 1 & 2 Non-reacti ve Non-react nemesio 03/27/2018 10:17 PM TEST EVALUATOR [facility] Comment: Neither HIV-1 p24 Antigen nor HIV-1/HIV-2 Antibodies are detected. Blood BLOOD SPECIMEN / Unknown Venipuncture / Unknown 03/27/2018 9:12 PM TEST EVALUATOR 03/27/2018 9:21 PM TEST EVALUATOR us Davi Patrick MD LAB - HEMATOLOGY ORDERABLES Fi nal Result Performing Organization Address [facility] Co de Phone Number [address] [phone] * HEPATITIS C AB SCREEN RFLX NAAT QUANT (03/27/2018 9:12 PM TEST EVALUATOR) Hepatitis C Antibody Non-react nemesio Non-reac tive 03/27/2018 10:20 PM TEST EVALUATOR [facility] Comment: Hepatitis C Antibody screen indicates no serologic evidence of past or current infection with Hepatitis C Virus. Patients with unexplained liver disease who are immunocompromised or suspected of having acute Hepatitis C infection may benefit from Nucleic Acid Test (RINKU) for Hepatitis C Viral RNA to confirm Hepatitis C status. Blood BLOOD SPECIMEN / Unknown Venipuncture / Unknown 03/27/2018 9:12 PM TEST EVALUATOR 03/27/2018 9:21 PM TEST EVALUATOR us Davi Patrick MD LAB - CHEMISTRY ORDERABLES Fin al Result Performing Organization Address [facility] Co de Phone Number [address] [phone] from Last 3 Months or Most Recently Relevant to Health Maintenance [facility] Care Teams Optometrist President/Practice Owner Relationship Specialty Start Date End Date Alee Zhao MD [address] [place] [phone] PCP - General Family Medicine 03/25/18
--- OUTSIDE RECORDS SUMMARY | 2025-01-25 16:24 | XMS_ITS | Encounter Summary ---
Author Organization [facility] Healthcare Address [address] [place] [address] Care Team Providers Care Client Services Assistant Name Role Phone Td Lopez MD Primary Care Provider + Angie Woodard MD Unavailable [phone] Vimal Woodruff MD Unavailable [phone] PastorAlannah MA Unavailable [phone] PastorAlannah fair MA Unavailable [phone] PastorAlannah fair MA Unavailable [phone] Eun Arana RN Unavailable [phone] Lakshmi Garcia LPN Unavailable [phone] Niki Burns MA Unavailable Encounter Details Date Type Department Care Team (Late st Contact Info) Description 12/21/2017 Documentation [id number] [place] [id number] Shannan Farfan, JOHN Social History Tobacco Use Types Packs/Day Years Used Date Smoking Tobacco: Every Day Sex and Gender Information Value Date Recorded Sex Assigned at Not on file Legal Sex Male 3:38 AM CREAM BUYER Gender Identity Not on file Sexual Orientation [...] COVID: Suspected 06/27/2021 06/27/2021 06/27/2021 12:53 PM CREAM BUYER COVID19 06/27/2021 06/27/2021 07/08/2021 3:05 AM CREAM BUYER COVID: Recovered Comment:Added based on recent COVID infection. 07/08/2021 07/14/2021 11/05/2021 3:05 AM C DT COVID: Suspected 05/20/2022 05/20/2022 05/20/2022 2:32 AM CREAM BUYER COVID: Suspected 09/20/2023 09/20/2023 09/20/2023 9:26 PM CDT COVID: Suspected 10/04/2023 10/04/2023 10/04/2023 3:55 PM CDT documented as of this encounter Care Teams Client Services Assistant Relationship Specialty Start Date End Date Td Lopez MD [facility] [address] PCP - General Family Medicine 11/09/20 Angie Woodard MD [address] [place] [address] Consulting Physician Gastroenterology 07/17/21 Vimal Woodruff MD [address] [place] [address] Consulting Physician Gastroenterology 02/10/22 Alannah Baumann MA [address] [place] [address] [employer] Personal Care Aid 12/31/23 01/05/24 Alannah Baumann MA [address] [place] [address] [employer] Personal Care Aid 06/29/24 06/30/24 Alannah Baumann MA [address] [place] [address] [address] [place] [address] [employer] Personal Care Aid 08/03/24 08/03/24 Eun Arana RN [address] [place] [address] [address] [place] [address] Associate Professor Of Music 08/17/24 08/25/24 Lakshmi Garcia LPN [address] [place] [address] [address] [place] [address] Associate Professor Of Music 10/05/24 10/05/24 Niki Burns MA [address] [place] [address] [address] [place] [address] [employer] Care Personal Care Aid 10/18/24 10/19/24 documented as of this encounter
--- OUTSIDE RECORDS SUMMARY | 2025-01-25 16:24 | XMS_ITS | Clinical Summary ---
Author Organization [facility] Address [facility] [place] [address] Care Team Providers Care Program Checker Name Role Phone Td Lopez MD Primary Care Provider [phone] Allergies Active Allergy Reactions Criticality Noted Date Comments Capsaicin Other (see comment) Low 05/20/2019 Pt states it gets into his scars and causes a lot of pain Doxycycline GI Upset Low 03/29/2017 Haloperidol Other (see comment) 01/29/2022 Musculoskeletal pain Metoclopramide Myalgias 03/29/2017 Sulfa Antibiotics Myalgias,Other (see comment) Medium 03/29/2017 Reaction: neurological symptoms per patient Medications CREON [id number] units CAPSULE ENTERIC COATED PARTICLES Take 36,000 [...] pain 10/18/2022 Abdominal pain 10/18/2022 Acute pancreatitis ([facility]) 09/28/2022 Renal infarct ([facility]) 09/08/2022 Marijuana use 09/04/2022 Normocytic normochromic anemia 09/04/2022 Sphincter of Oddi dysfunction 09/04/2022 Tobacco use disorder, continuous 09/04/2022 Pancreatitis ([facility]) 09/02/2022 GI bleed 06/28/2022 Folliculitis 01/08/2022 Overview (09/04/2022): Last Assessment & Plan: - chronic, uncontrolled - start clindamycin gel daily x 7 days - ref to derm for eval. Manipulative behavior 07/14/2021 COVID-19 vaccine series completed 06/27/2021 Overview (09/04/2022): Moderna x2 Drug-seeking behavior 06/27/2021 History of 2019 novel coronavirus disease (COVID -19) 06/27/2021 Drug abuse and dependence ([facility]) 09/2020 Overview (09/04/2022): Last Assessment & Plan: - using mariajuana occasionally; has had frequent rx for opioids in ER - pt claims at least several days since last ER visit with narcotics given - record review suggests at least 2 wks - will check UDS Acute recurrent pancreatitis ([facility]) Other chronic pancreatitis ([facility]) Overview (09/04/2022): Last Assessment & Plan: - stable today - continue current medications - f/u with Dr Rosas as planned - encouraged pt to come to clinic instead of going to ER next time he has abdominal pain Duodenal papillary stenosis ([facility]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/2020 Hyperemesis 10/18/2019 Annual physical exam [...] Colitis 02/18/2019 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[facility]) 10/18/2018 Mild malnutrition ([facility]) 10/18/2018 Neutrophilic leukocytosis 10/18/2018 Tobacco use disorder 10/18/2018 Other chronic pancreatitis ([facility]) 02/2019 Overview (02/18/2019): Overview: Added automatically from request for surgery [id number] Chronic abdominal pain 03/30/2017 Assessment & Plan (03/30/2017 12:03 PM CORDUROY BRUSHER OPERATOR): Acute on chronic, stable Patient with [...] diet as tolerated Sepsis ([facility]) 03/30/2017 Assessment & Plan (03/30/2017 12:03 PM CORDUROY BRUSHER OPERATOR): Present on admission, resolved Lactic acid [...] 03/30/2017 Assessment & Plan (03/30/2017 12:25 AM CORDUROY BRUSHER OPERATOR): - established, controlled - continue home fluoxetine, nortriptyline GERD (gastroesophageal reflux disease) 7 Assessment & Plan (03/30/2017 12:25 AM CORDUROY BRUSHER OPERATOR): - established, controlled - continue home nexium Hypertension 03/30/2017 Overview (03/30/2017): - established, controlled - continue home metoprolol Assessment & Plan (03/30/2017 1:01 AM CORDUROY BRUSHER OPERATOR): - established, controlled - continue home metoprolol Influenza 03/30/2017 Depression 03/30/2017 Overview (02/18/2019): Overview: Last Assessment & Plan: - established, controlled - continue home fluoxetine, nortriptyline Flu 03/29/2017 Assessment & Plan (03/30/2017 12:03 PM CORDUROY BRUSHER OPERATOR): Acute, influenza A + on admission, [...] Frequent patient in emergency department 06/27/2021 09/08/2022 Family History Medical History Relation Comments No [...] week 09/28/2022 How often do you attend latter day or orthodoxy serv ices? Never 09/28/2022 Do you belong to any clubs o r organizations such as latter day groups, unions, fraternal or athletic groups, or [...] you are drinking? Patient does not drink 3 Q3: How often do you have si x or more drinks on one occasion? Never 09/28/2022 Overall Financial Resource Strain (CARDIA) Answe r Date Recorded How hard is it for you to pa y for the very basics like food, housing, medical care, and heating? Not hard at all 10/18/2022 [facility] - Occupational Stress Questionnaire Answer Date Recorded [...] place to sleep or slept in a residential (including now)? No 10/18/2022 Sex and Gender Information Value Date Recorded Sex Assigned at Male 06/21/2024 7:21 PM CORDUROY BRUSHER OPERATOR Legal Sex Male 8:10 AM CDT [...] 3-dose SCD M series) 2008 COVID-19 Vaccine (2024-2 6 season) 2025 10/29/2021, 11/02/2020, 10/05/2020 DTaP, Tdap and Td [...] discharge from hospital Lifestyle No Sintia Zhao, RN Insurance LEONARD Advance Directives * Full Code (Latest Code [...] 6:07 PM 10/19/2019 4:11 PM Care Teams Program Checker Relationship Specialty Start Date End Date Td Lopez MD PCP - General FAMILY PRACTICE 08/18/19
--- NOTE | 2025-01-25 16:32 | ED_ITS ---
HPI - Abdominal Pain General Chief Complaint: Abdominal Pain Stated Complaint: abdominal pain Time Seen by Provider: 01/25/25 16:03 Source: patient Mode of arrival: ambulatory Limitations: no limitations History of Present Illness HPI narrative: Donovan is a 44-year-old male patient presenting to the ER today with complaints of upper abdominal pain a just started at 2:00 a.m. this afternoon. He reports he is having associated nausea and vomiting. Rates the pain 10/10. Pain is sharp in the upper abdomen. No diarrhea. Last bowel movement was this morning and normal. History of pancreatitis Related Data Home Medications ?Medication ?Instructions ?Recorded ?Confirmed ?Last Taken ?Type apixaban 5 mg tablet (Eliquis) 5 mg PO BID 04/05/23 Unknown History dicyclomine 20 mg tablet 20 mg PO BID 04/05/23 Unknown History Allergies Allergy/AdvReac Type Severity Reaction Status Date / Time metoclopramide Allergy Unknown Muscle Verified 01/25/25 16:37 Spasms haloperidol (From Haldol) AdvReac Mild Muscle Verified 01/25/25 16:37 Spasms doxycycline AdvReac Unknown Gastrointestinal Verified 01/25/25 16:37 Upset sulfamethoxazole AdvReac Unknown Gastrointestinal Verified 01/25/25 16:37 Upset trimethoprim AdvReac Unknown Gastrointestinal Verified 01/25/25 16:37 Upset prochlorperazine (From AdvReac Muscle Verified 01/25/25 16:37 Compazine) Spasms Sulfa (Sulfonamide AdvReac Gastrointestinal Verified 01/25/25 16:37 Antibiotics) Upset Review of Systems 2 Review of Systems: Pertinent positives per HPI. Patient denies any fever, chills, rash, headache, visual changes, dizziness, cough, shortness of breath, chest pain, palpitations, diarrhea, constipation, or any urinary issues. [facility] Past Medical History Medical History Kidney infarction Chronic pancreatitis Cyclical vomiting Anxiety Depression Kidney stones Hypertension GERD (gastroesophageal reflux disease) Cyclic vomiting syndrome IBD (inflammatory bowel disease) Gastroenteritis Pancreatitis Colitis Surgical History Surgical History Hx of cholecystectomy Family History Family History Grandparent Acute myocardial infarction Social History Social History Smoking packs per day: 1 Smoking cigarettes per day: 20.0 Years smoked: 20 Smoking pack-years: 20.00 Smoking status: Current every day smoker Tobacco type: cigarettes Alcohol intake: current Drinks per week: 3 Substance use: current Substance use type: marijuana Last use: PROBABLY ABOUT A WEEK AGOago Lack of Transportation: No Lack of Food: Never True Current Housing: I Have Housing Concerned About Future Housing: No Difficulty Paying Gas/Electric Bills: No Difficulty Paying for Meds: No Currently Unemployed: No Education: High School Diploma/GED Difficulty w/ Childcare or Family Care: No Living arrangements: alone Gender identity (if verbalized by the patient): Male Sexual Orientation (if Verbalized by the Patient): Straight or Heterosexual Spiritual care concerns: No Comments At the time of my signature, I reviewed and agree with the nursing past medical, surgical, social, and family history. There is no relevant family history pertinent to the patient complaint. Exam 2 Narrative: General: Well-developed, well nourished, in no apparent distress. Head: Normocephalic, atraumatic. Cardio: Regular rate and rhythm, s1 and s2 normal, no murmur appreciated. Resp: Clear to auscultation bilaterally, no rhonchi, rales, wheezing or rubs. Abdomen: Soft, pliable, bowel sounds present in all quadrants, upper abdomen tender to palpation, no organomegly, no CVAT tenderness. Course Course Emergency Course: Portions of this record may have been created with voice recognition software. Vital Signs Vital signs: Vital signs reviewed MDM - Abdominal Pain MDM Narrative Medical decision making narrative: At the time of visit patient is resting comfortably on the exam table. Patient appears to be nontoxic. complaints of upper abdominal pain a just started at 2:00 a.m. this afternoon. He reports he is having associated nausea and vomiting. Rates the pain 10/10. Pain is sharp in the upper abdomen. No diarrhea. Last bowel movement was this morning and normal. History of pancreatitis. Labs and CT ordered. Pepcid 20 mg IV, Dilaudid 0.5 mg IV, and Zofran 4 mg IV ordered. Symptoms still persisting after initial medications so another 4 mg of Zofran and 0.5 of Dilaudid ordered. Patient reports relief of symptoms after this medication was given. Labs: CBC shows white blood cell count of 12.9 hemoglobin is 15, hematocrit is 44.6, platelet counts 274, chemistries unremarkable, lipase level is 399, urinalysis negative Diagnostics: CT of the abdomen with contrast ordered and is negative for any acute abdomen pathology. Does show some moderate stool in the colon. Plan: Patient has upper abdominal pain/epigastric pain. All labs and diagnostic testing were reviewed with the patient in the voiced understanding. Prescription for Pepcid and Zofran was sent to the pharmacy. Supportive measures were discussed with the patient and they voiced understanding discharge instructions and agrees to treatment plan. Return precautions reviewed Differential Diagnosis Differential diagnosis: Likely abdominal pain, acute appendicitis, constipation, diverticulitis, pancreatitis, small bowel obstruction and other (Epigastric pain) Lab Data 01/25/25 15:58 01/25/25 15:58 Labs: Lab Results 01/25/25 01/25/25 Range/Units 15:58 16:13 WBC 12.9 H (4.5-10.0) K/mm3 RBC 5.02 (4.6-6.20) M/mm3 Hgb 15.0 (14.0-18.0) g/dL Hct 44.6 (42.0-52.0) % MCV 88.8 (80-100) fl MCH 29.9 (26-34) pg MCHC 33.6 (32-36) g/dl RDW 14.6 H (11.5-14.5) % Plt Count 274 (150-375) k/mm3 MPV 10.0 (7.4-10.4) fl Immature Gran % (Auto) 0.5 (0-0.5) % Neut % (Auto) 69.3 (45.5-73.1) % Lymph % (Auto) 19.2 (18.3-44.2) % Williams % (Auto) 8.9 H (2.6-8.5) % Eos % (Auto) 1.5 (0-4.4) % Baso % (Auto) 0.6 (0.2-1.2) % Lymph # (Auto) 2.48 (0.9-3.2) K/mm3 Williams # (Auto) 1.2 H (0.1-0.6) K/mm3 Eos # (Auto) 0.2 (0-0.3) K/mm3 Baso # (Auto) 0.1 (0.0-0.1) K/mm3 Abs Immat Gran (auto) 0.06 H (0.00-0.031) K/mm3 Absolute Neuts (auto) 9.0 H (1.3-6.7) K/mm3 Absolute Nucleated RBC 0.000 (0.0-0.012) K/mm3 Nucleated RBC % 0.0 (0.0-0.2) % Sodium 139 (137-145) mmol/L Potassium 3.9 (3.4-5.0) mmol/L Chloride 107 (98-107) mmol/L Carbon Dioxide 24 (22-30) mmol/L Anion Gap 8 (4-12) mmol/L BUN 11 (9-20) mg/dL Creatinine 0.94 (0.7-1.3) mg/dL Estim Creat Clear Calc 83 ml/min Estimated GFR > 60 (59 - ) Glucose 110 (65-110) mg/dL Calcium 9.1 (8.4-10.2) mg/dL Total Bilirubin 0.4 (0.2-1.3) mg/dL AST 25 (17-59) U/L ALT 19 (6-50) U/L Alkaline Phosphatase 87 (38-126) U/L Total Protein 7.3 (6.3-8.2) g/dL Albumin 4.4 (3.5-5.1) g/dL Lipase 399 H (23-300) U/L Urine Color Yellow (Yellow) Urine Appearance Clear (Clear) Urine pH 6.5 (5.0-9.0) Ur Specific [place] 1.014 (1.001-1.035) Urine Protein Negative (Negative) mg/dL Urine Glucose (UA) Negative (Negative) mg/dL Urine Ketones Negative (Negative) mg/dL Ur Blood (Man) Negative (Negative) Urine Nitrate Negative (Negative) Urine Bilirubin Negative (Negative) Urine Urobilinogen 1.0 (<2.0) mg/dL Leukocyte Esterase Rfl Negative (Negative) CHRIS/UL Imaging Data Radiologist's impression: ITS Impressions Abdomen/Pelvis CT 01/25/25 18:01 IMPRESSION: 1. No etiology identified to explain the patient's symptoms. Follow-up suggested if symptoms persist. Discharge Plan Discharge Clinical Impression: Acute upper abdominal pain, Acute nausea with nonbilious vomiting Patient Disposition: Home Condition: Stable Instructions: Antibiotic Form, Acute Nausea and Vomiting (ED), Abdominal Pain (ED) Additional Instructions: Continue current medications as prescribed-new prescription for Zofran and Pepcid was sent to the pharmacy Increase fluids and stay well hydrated May take Tylenol or motrin as directed on bottle for pain/fever Return to the ED if you develop a worsening in your condition- high fever not controlled by Tylenol or Motrin, dehydration, weakness, lethargy, abdominal pain, shortness of breath, or chest pain. Follow up with your PCP in 3-5 days if symptoms persist. Patient Language: Portuguese Prescriptions: New famotidine [Pepcid] 20 mg tablet 20 mg PO DAILY Qty: 30 0RF ondansetron 4 mg tablet,disintegrating 4 mg PO Q6H PRN (Reason: nausea and vomiting) 3 Days Qty: 12 0RF No Action omeprazole 20 mg capsule,delayed release(DR/EC) 20 mg PO DAILY Qty: 14 0RF ondansetron 4 mg tablet,disintegrating 4 mg PO Q8H PRN (Reason: nausea and vomiting) Qty: 14 0RF dicyclomine 20 mg tablet 20 mg PO QID Qty: 20 0RF promethazine 25 mg tablet 25 mg PO Q6H PRN (Reason: nausea and vomiting) Qty: 20 0RF ondansetron 4 mg tablet,disintegrating 4 mg PO Q8H PRN (Reason: nausea and vomiting) Qty: 10 0RF hyoscyamine sulfate [Levsin] 0.125 mg tablet 0.125 mg PO QID Qty: 14 0RF ondansetron 4 mg tablet,disintegrating 4 mg PO Q6H PRN (Reason: nausea and vomiting) Qty: 10 0RF alum-mag hydroxide-simeth [Maalox Advanced] 200-200-20 mg/5 mL suspension 10 ml PO QID PRN (Reason: dyspepsia) Qty: 300 0RF Rx Instructions: administer between meals and at bedtime ondansetron 4 mg tablet,disintegrating 4 mg PO Q8H PRN (Reason: nausea and vomiting) Qty: 10 0RF dicyclomine 20 mg Tablet 20 mg PO BID Patient Comments: HAVE NOT HAD A DOSE. UNABLE TO OBTAIN FROM HIS PHARMACY Eliquis 5 mg Tablet 5 mg PO BID dicyclomine 20 mg tablet 20 mg PO BID Qty: 30 0RF famotidine [Pepcid] 20 mg tablet 20 mg PO BID 42 Days Qty: 84 0RF ondansetron 4 mg tablet,disintegrating 4 mg PO Q8H PRN (Reason: nausea and vomiting) Qty: 10 0RF dicyclomine 20 mg tablet 20 mg PO TID PRN (Reason: abdominal pain) Qty: 20 0RF amoxicillin-pot clavulanate 875-125 mg tablet 1 tablet PO Q12H Qty: 14 0RF pantoprazole 40 mg tablet,delayed release (DR/EC) 40 mg PO HS Qty: 14 0RF Follow-up/Referrals: John,Td Lewis MD [Primary Care Provider, Unknown] Time of Disposition: 18:38 Quality NIHSS Nursing Documentation ED NIHSS nursing documentation: reviewed/agree
[2025-01-25] MEDS: FAMOTIDINE 20 MG/2 ML VIAL IV PUSH (16:44)
[2025-01-25] MEDS: ONDANSETRON INJ 4 MG/2 ML VIAL IV PUSH ×2 (16:44→17:47)
[2025-01-25] MEDS: HYDROmorphone HCL INJ (*CRX) 1 MG/ML SYR 0.5 MG IV PUSH ×2 (16:44→17:47)
[2025-01-25] MEDS: SODIUM CHLORIDE 0.9% IV 1,000 ML 999 ML IV CONT (16:46)
== END 2025-01-25 19:01 | disposition home or self-care (01) ==
PROVIDERS: Emergency Medicine; Emergency Provider Nurse Practitioner Family; PCP Family Medicine
DX: R10.10 Upper abdominal pain, unspecified (principal); R11.2 Nausea with vomiting, unspecified; I10 Essential (primary) hypertension; F17.210 Nicotine dependence, cigarettes, uncomplicated
CPT/HCPCS: 36415; 74177; 80053; 81003; 83690; 85025; 96361; 96374; 96375; 96376; 99284; J1171; J2405; J7030; Q9967

== ENCOUNTER 2025-01-27 07:04 | Emergency (ER) | payer MEDICAID, SELFPAY ==
--- OUTSIDE RECORDS SUMMARY | 2023-09-21 09:30 | XMS_ITS ---
Author Organization [facility] Address [address] [place] [address] Care Team Providers Care Coin Machine Collector Name Role Phone John TUCKER, Td Primary Care Provider Unavaila jenny FIGUEROA SUPERVISOR RECEIVING AND PROCESSING, NATALIYA Unavailable [phone] IFRAH TUCKER, BRODERICK Unavailable [phone] REASON FOR VISIT ERCP INPT Encounters Encounter Location Date Provider Diagnosis [facility] - Op [address] Sched[address] [place], [place] [id number] 09/21/2023 BRODERICK RG Plan Of Treatment No Information Progress Notes * Donovan BROWN MDOB: 2 (44 yo M)Acc No.[id number]:09/21/2023 Patient: Donovan HASSAN Provider: William Rg MD, FASGE :1980 A ge:43 Y S ex:Male Date:09/21/2023 Address:[address] [id number] Pcp:Td Lopez MD * * Electronic signature of ROSETTE RG MD, MD on 01/27/2025 at 08:06 AM EDT Sign off status: Pending * Provider: William Rg MD, FASGE Date: 09/21/2023 Generated for Printi ng/Faxing/eTransmitting on: 0 01/27/2025 08:06 AM EDT
--- OUTSIDE RECORDS SUMMARY | 2023-09-23 10:00 | XMS_ITS ---
Author Organization [facility] Address [address] [place] [address] Care Team Providers Care Blank Driller Name Role Phone John TUCKER, Td Primary Care Provider Unavaila jenny FIGUEROA ARTIST SUSPECT, NATALIYA Unavailable IFRAH TUCKER, BRODERICK Unavailable REASON FOR VISIT ERCP stent pull INPT Encounters Encounter Location Date Provider Diagnosis [facility] - Op [address] [place], [place] [phone] 09/23/2023 BRODERICKNICKY RG Plan Of Treatment No Information Progress Notes * Donovan BROWN MDOB: 2 (44 yo M)Acc No.[id number]:09/23/2023 Patient: Donovan HASSAN Gaby Provider: William Rg MD, FASGE :1980 A ge:43 Y S ex:Male Date:09/23/2023 Address:[address] [id number] Pcp:Td Lopez MD * * Electronic signature of ROSETTE RG MD, MD on 01/27/2025 at 08:06 AM EDT Sign off status: Pending * Provider: William Rg MD, FASGE Date: 0 09/23/2023 Generated for Printi ng/Faxing/eTransmitting on: 0 01/27/2025 08:06 AM EDT
--- OUTSIDE RECORDS SUMMARY | 2024-02-29 04:00 | XMS_ITS ---
Author Organization [facility] Address [address] [place] [address] Care Team Providers Care Finished Cigar Maker Name Role Phone John TUCKER, Td Primary Care Provider Tucker FIGUEROA NP, NATALIYA Porras [phone] REASON FOR VISIT FU ER Visit Encounters Encounter Location Date Provider Diagnosis [facility] [address] [place] [address] 02/29/2024 NATALIYA FIGUEROA Plan Of Treatment No Information Progress Notes * Donovan BROWN MDOB: 2 (44 yo M)Acc No.[id number]:02/29/2024 Progress Notes Patient: Donovan HASSAN Appointment Provider: Enrrique Figueroa CNP :1980 A ge:43 Y S ex:Male Date:02/29/2024 [facility] [facility] Pcp:Td Lopez MD Subjective: * Chief Complaints: * 1 . FU ER Visit. * Medical History: Objective: * Vitals: Assessment: Plan: * Treatment: * * Electronic signature of AMANDA FIGUEROA NP, MSN PROPERTY MAN-BC on 01/27/2025 at 08:06 AM EDT Sign off status: Pending * Appointment Provider: Enrrique Figueroa CNP Date: 1 Generated for Printing/Faxing/eTransmitting on: 0 01/27/2025 08:06 AM EDT
--- OUTSIDE RECORDS SUMMARY | 2025-01-27 07:06 | XMS_ITS | Clinical Summary ---
Author Organization [facility] Address [address] [place] [address] Care Team Providers Care Compounding Scaler Name Role Phone Alee Zhao MD Primary Care Provider [phone] Source Comments [facility],non-owned Affiliates and Associated Physician Practices is amultiple site organization consisting of ambulatory clinics and hospital sitesin [place], [place], [place] and [place]. This disclosure is being madepursuant to the Care Everywhere program and may not contain all information available regarding this patient. Last updated 18.[facility] Allergies Active Allergy Reactions Criticality Noted Date [...] on file Legal Sex Male 7:46 PM SAWMILL OR TIMBER YARD WORKER Gender Identity Not on file Sexual Orientation Not on file Last Filed Vital Signs Vital Sign Reading Time Taken Comments Blood Pressure 120/71 03/17/2019 5:03 PM SAWMILL OR TIMBER YARD WORKER Pulse 75 03/17/2019 5:03 PM SAWMILL OR TIMBER YARD WORKER Temperature 36.9 C (98.4 F) 03/17/2019 2:00 PM SAWMILL OR TIMBER YARD WORKER Respiratory Rate 17 03/17/2019 5:03 PM SAWMILL OR TIMBER YARD WORKER Oxygen Saturation 99% 03/17/2019 5:03 PM SAWMILL OR TIMBER YARD WORKER Inhaled Oxygen Concentration - - Weight 77.1 kg (170 lb) 03/17/2019 2:00 PM SAWMILL OR TIMBER YARD WORKER Height 177.8 cm (5' 10) 03/17/2019 2:00 PM SAWMILL OR TIMBER YARD WORKER Body Mass Index 24.39 03/17/2019 2:00 PM SAWMILL OR TIMBER YARD WORKER Plan of Treatment Health Maintenance Due [...] RFLX NAAT QUANT STAT 03/27/2018 9:12 PM SAWMILL OR TIMBER YARD WORKER HIV-1 HIV-2 ANTIGEN/ANTIBODY STAT 03/27/2018 9:12 PM SAWMILL OR TIMBER YARD WORKER from Last 3 Months or Most Recently Relevant to Health Maintenance Results * HIV-1 HIV-2 ANTIGEN/ANTIBODY (03/27/2018 9:12 PM SAWMILL OR TIMBER YARD WORKER) HIV Antigen/Antibod y 1 & 2 Non-reacti ve Non-react nemesio 03/27/2018 10:17 PM SAWMILL OR TIMBER YARD WORKER [facility] Comment: Neither HIV-1 p24 Antigen nor HIV-1/HIV-2 Antibodies are detected. Blood BLOOD SPECIMEN / Unknown Venipuncture / Unknown 03/27/2018 9:12 PM SAWMILL OR TIMBER YARD WORKER 03/27/2018 9:21 PM SAWMILL OR TIMBER YARD WORKER us Davi Patrick MD LAB - HEMATOLOGY ORDERABLES Fi nal Result Performing Organization Address [facility] Co de Phone Number [address] [phone] * HEPATITIS C AB SCREEN RFLX NAAT QUANT (03/27/2018 9:12 PM SAWMILL OR TIMBER YARD WORKER) Hepatitis C Antibody Non-react nemesio Non-reac tive 03/27/2018 10:20 PM SAWMILL OR TIMBER YARD WORKER [facility] Comment: Hepatitis C Antibody screen indicates no serologic evidence of past or current infection with Hepatitis C Virus. Patients with unexplained liver disease who are immunocompromised or suspected of having acute Hepatitis C infection may benefit from Nucleic Acid Test (RINKU) for Hepatitis C Viral RNA to confirm Hepatitis C status. Blood BLOOD SPECIMEN / Unknown Venipuncture / Unknown 03/27/2018 9:12 PM SAWMILL OR TIMBER YARD WORKER 03/27/2018 9:21 PM SAWMILL OR TIMBER YARD WORKER us Davi Patrick MD LAB - CHEMISTRY ORDERABLES Fin al Result Performing Organization Address [facility] Co de Phone Number [address] [phone] from Last 3 Months or Most Recently Relevant to Health Maintenance Insurance [facility] Care Teams Compounding Scaler Relationship Specialty Start Date End Date Alee Zhao MD [address] [place] [phone] PCP - General Family Medicine 03/25/18
--- OUTSIDE RECORDS SUMMARY | 2025-01-27 07:07 | XMS_ITS | Clinical Summary ---
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 Gender Identity Not on file Sexual Orientation Not on file Last Filed Vital Signs Vital Sign Reading Time Taken Comments Blood Pressure 119/84 07/11/2022 2:03 AM HARM REDUCTION WORKER Pulse 80 07/11/2022 2:03 AM HARM REDUCTION WORKER Temperature 36.3 C (97.4 F) 07/11/2022 2:03 AM HARM REDUCTION WORKER Respiratory Rate 18 07/11/2022 2:03 AM HARM REDUCTION WORKER Oxygen Saturation 97% 07/11/2022 2:03 AM HARM REDUCTION WORKER Inhaled Oxygen Concentration - - Weight 79.4 kg (175 lb) 07/10/2022 8:06 PM HARM REDUCTION WORKER Height 177.8 cm (5' 10) 07/10/2022 8:06 PM HARM REDUCTION WORKER Body Mass Index 25.11 07/10/2022 8:06 PM HARM REDUCTION WORKER Plan of Treatment Health Maintenance Due Date Last Done Comments HEPATITIS B VACCINES (1 of 3 - 19+ 3-dose series) 2000 HPV VACCINES (1 - 3-dose SCD M series) 2008 INFLUENZA VACCINE (#1) 2024 , 02/29/2020, 02/09/2018 COVID-19 Vaccine (4 - 2024-2 6 season) 2025 10/29/2021, 11/02/2020, 10/05/2020 DTAP/TDAP/TD VACCINES (2 - T d or Tdap) 10/30/2031 10/29/2021 Insurance [id number] MEDICA[id number]
--- OUTSIDE RECORDS SUMMARY | 2025-01-27 07:07 | XMS_ITS | Patient Health Record ---
Author Organization [facility] Address [address] [facility] [address] [place] [address] Care Team Providers Care Building Carpenter Helper Name Role Phone John TUCKER, Td Primary Care Provider Tucker FIGUEROA TRACTOR TRAILER DRIVER, NATALIYA Unavailable Allergies Allergen (clinical drug ingredient) [...] W/U Status Risk Notes Problem Chronic pancreatitis (090195028) Other chronic pancreatitis (K86.1) Active confirmed Plan Of Treatment No Information Insurance Providers Payer Name Payer Address Payer Phone Subscriber Number Group Number Insured Name Patient Relationship to Insured Coverage Start Date Coverage End Date [address] [id number] Donovan Bailey Self - patient is the insured Medical (General) History Medical History History ICD Code chronic pancreatitis cyclic vomiting hyperemesis cannabis Surgical History Surgery Date(Month/Year) cholecystectomy ERCP
[2025-01-27 07:12] VITALS: BP 142/95; PULSE 81; RESP 17; O2SAT 97
[2025-01-27] MEDS: LACTATED RINGERS 1,000 ML 999 ML IV CONT (07:33)
[2025-01-27 07:35] LABS: Hematocrit 41.9 % (42.0-52.0); Hemoglobin 13.9 g/dL (14.0-18.0); Immature Granulocyte Percent A 0.5 % (0-0.5); Lymphocytes Absolute Auto 1.78 K/mm3 (0.9-3.2); Mean Corpuscular HGB Conc 33.2 g/dl (32-36); Mean Corpuscular Hemoglobin 29.2 pg (26-34); Mean Corpuscular Volume 88.0 fl (80-100); Nucleated Red Blood Cells Absolute Auto 0.000 K/mm3 (0.0-0.012); Nucleated Red Blood Cells Perc 0.0 % (0.0-0.2); Platelet Count Result 252 k/mm3 (150-375); Red Blood Count 4.76 M/mm3 (4.6-6.20); White Blood Count 14.9 K/mm3 (4.5-10.0)
[2025-01-27 07:46] LABS: INR 0.9; Partial Thromboplastin Time 27.3 Seconds (22.3-36.8); Prothrombin Time 12.2 Seconds (11.1-14.7)
[2025-01-27 07:47] LABS: Alanine Aminotransferase 17 U/L (6-50); Albumin Level 4.1 g/dL (3.5-5.1); Alkaline Phosphatase 84 U/L (38-126); Anion Gap 8 mmol/L (4-12); Aspartate Amino Transferase 28 U/L (17-59); Bilirubin,Total 0.3 mg/dL (0.2-1.3); Blood Urea Nitrogen 9 mg/dL (9-20); Calcium 8.9 mg/dL (8.4-10.2); Carbon Dioxide 25 mmol/L (22-30); Chloride 105 mmol/L (98-107); Estimated CRCL calculation 93 ml/min; Estimated Glomerular Filt Rate > 60; Glucose 125 mg/dL (65-110); Lipase 417 U/L (23-300); Potassium 3.9 mmol/L (3.4-5.0); Sodium 138 mmol/L (137-145); Total Protein 6.9 g/dL (6.3-8.2)
--- NOTE | 2025-01-27 07:52 | ED.GENADULT ---
HPI - General Adult General Chief complaint: Abdominal Pain Stated complaint: abdominal pain, n/v Time Seen by Provider: 01/27/25 07:05 History of Present Illness HPI narrative: 44-year-old male presents to the emergency department for evaluation for worsening of his cyclic vomiting and chronic abdominal pain. Patient was evaluated emergency department just a few days ago and patient states that his pain has since worsened. At that time patient's pain was treated with Dilaudid Zofran IV fluids and patient had a negative CT scan. Patient reports that his pain and improve but worsened after being discharged. Related Data Home Medications ?Medication ?Instructions ?Recorded ?Confirmed ?Last Taken ?Type apixaban 5 mg tablet (Eliquis) 5 mg PO BID 04/05/23 04/05/23 Unknown History dicyclomine 20 mg tablet 20 mg PO BID 04/05/23 04/05/23 Unknown History Allergies Allergy/AdvReac Type Severity Reaction Status Date / Time metoclopramide Allergy Unknown Muscle Verified 01/25/25 16:37 Spasms haloperidol (From Haldol) AdvReac Mild Muscle Verified 01/25/25 16:37 Spasms doxycycline AdvReac Unknown Gastrointestinal Verified 01/25/25 16:37 Upset sulfamethoxazole AdvReac Unknown Gastrointestinal Verified 01/25/25 16:37 Upset trimethoprim AdvReac Unknown Gastrointestinal Verified 01/25/25 16:37 Upset prochlorperazine (From AdvReac Muscle Verified 01/25/25 16:37 Compazine) Spasms Sulfa (Sulfonamide AdvReac Gastrointestinal Verified 01/25/25 16:37 Antibiotics) Upset Review of Systems Review of Systems: All systems reviewed & are unremarkable except as noted in HPI and below PMFSH Past Medical History Medical History Kidney infarction Chronic pancreatitis Cyclical vomiting Anxiety Depression Kidney stones Hypertension GERD (gastroesophageal reflux disease) Cyclic vomiting syndrome IBD (inflammatory bowel disease) Gastroenteritis Pancreatitis Colitis Surgical History Surgical History Hx of cholecystectomy Family History Family History Grandparent Acute myocardial infarction Social History Social History Smoking packs per day: 1 Smoking cigarettes per day: 20.0 Years smoked: 20 Smoking pack-years: 20.00 Smoking status: Current every day smoker Tobacco type: cigarettes Alcohol intake: current Drinks per week: 3 Substance use: current Substance use type: marijuana Last use: PROBABLY ABOUT A WEEK AGOago Lack of Transportation: No Lack of Food: Never True Current Housing: I Have Housing Concerned About Future Housing: No Difficulty Paying Gas/Electric Bills: No Difficulty Paying for Meds: No Currently Unemployed: No Education: High School Diploma/GED Difficulty w/ Childcare or Family Care: No Living arrangements: alone Gender identity (if verbalized by the patient): Male Sexual Orientation (if Verbalized by the Patient): Straight or Heterosexual Spiritual care concerns: No Exam Narrative: APPEARANCE: Tearful and uncomfortable appearing HEAD: normocephalic, atraumatic. EYES: PERRLA/EOMI, conjunctivae clear. NOSE: Normal no drainage EARS:TMS clear with good light reflex. THROAT: Pharynx clear, no exudate. NECK: Supple. No adenopathy, no masses. RESPIRATORY: Airway patent, respirations nonlabored. Clear to auscultation bilaterally, no rales, rhonchi, wheezing. CARDIOVASCULAR: Regular rate and rhythm without murmurs rubs or gallops. ABDOMINAL: Normal bowel sounds MUSCULOSKELETAL: Moves all extremities. Strength/ROM intact, No edema, No calf tenderness. NEURO: Alert. Cranial nerves II through XII intact. Good gait. Good coordination SKIN: Warm, dry. Normal Color Course Vital Signs Vital signs: Vital Signs Pulse Rate 81 01/27/25 07:12 Respiratory Rate 01/27/25 07:12 Blood Pressure 142/95 H 01/27/25 07:12 Pulse Oximetry 97 01/27/25 07:12 Oxygen Delivery Room Air 01/27/25 07:12 Pulse Rate 81 01/27/25 07:12 Respiratory Rate 17 01/27/25 07:12 Blood Pressure 142/95 H 01/27/25 07:12 Pulse Oximetry 97 01/27/25 07:12 Oxygen Delivery Room Air 01/27/25 07:12 Medical Decision Making Vital Signs Vital Signs: Vital Signs Pulse Rate 81 01/27/25 07:12 Respiratory Rate 17 01/27/25 07:12 Blood Pressure 142/95 H 01/27/25 07:12 Pulse Oximetry 97 01/27/25 07:12 Oxygen Delivery Room Air 01/27/25 07:12 Pulse Rate 81 01/27/25 07:12 Respiratory Rate 17 01/27/25 07:12 Blood Pressure 142/95 H 01/27/25 07:12 Pulse Oximetry 97 01/27/25 07:12 Oxygen Delivery Room Air 01/27/25 07:12 Lab Data 01/27/25 07:30 01/27/25 07:30 Labs: Lab Results 01/27/25 Range/Units 07:30 WBC 14.9 H (4.5-10.0) K/mm3 RBC 4.76 (4.6-6.20) M/mm3 Hgb 13.9 L (14.0-18.0) g/dL Hct 41.9 L (42.0-52.0) % MCV 88.0 (80-100) fl MCH 29.2 (26-34) pg MCHC 33.2 (32-36) g/dl RDW 14.9 H (11.5-14.5) % Plt Count 252 (150-375) k/mm3 MPV 9.8 (7.4-10.4) fl Immature Gran % (Auto) 0.5 (0-0.5) % Neut % (Auto) 78.9 H (45.5-73.1) % Lymph % (Auto) 11.9 L (18.3-44.2) % [place] % (Auto) 7.2 (2.6-8.5) % Eos % (Auto) 1.1 (0-4.4) % Baso % (Auto) 0.4 (0.2-1.2) % Lymph # (Auto) 1.78 (0.9-3.2) K/mm3 [place] # (Auto) 1.1 H (0.1-0.6) K/mm3 Eos # (Auto) 0.2 (0-0.3) K/mm3 Baso # (Auto) 0.1 (0.0-0.1) K/mm3 Abs Immat Gran (auto) 0.07 H (0.00-0.031) K/mm3 Absolute Neuts (auto) 11.8 H (1.3-6.7) K/mm3 Absolute Nucleated RBC 0.000 (0.0-0.012) K/mm3 Nucleated RBC % 0.0 (0.0-0.2) % PT 12.2 (11.1-14.7) Seconds INR 0.9 APTT 27.3 (22.3-36.8) Seconds Sodium 138 (137-145) mmol/L Potassium 3.9 (3.4-5.0) mmol/L Chloride 105 (98-107) mmol/L Carbon Dioxide 25 (22-30) mmol/L Anion Gap 8 (4-12) mmol/L BUN 9 (9-20) mg/dL Creatinine 0.93 (0.7-1.3) mg/dL Estim Creat Clear Calc 93 ml/min Estimated GFR > 60 (59 - ) Glucose 125 H (65-110) mg/dL Lactic Acid 1.6 (0.7-2.0) mmol/L Calcium 8.9 (8.4-10.2) mg/dL Total Bilirubin 0.3 (0.2-1.3) mg/dL AST 28 (17-59) U/L ALT 17 (6-50) U/L Alkaline Phosphatase 84 (38-126) U/L Total Protein 6.9 (6.3-8.2) g/dL Albumin 4.1 (3.5-5.1) g/dL Lipase 417 H (23-300) U/L Discharge Plan Discharge Clinical Impression: Cyclical vomiting, Chronic abdominal pain Patient Disposition: Home Condition: Stable Instructions: Antibiotic Form Additional Instructions: Have close follow-up with your physicians as outpatient. If you have any worsening symptoms please call or return to the emergency department. Patient Language: Palauan Prescriptions: No Action omeprazole 20 mg capsule,delayed release(DR/EC) 20 mg PO DAILY Qty: 14 0RF ondansetron 4 mg tablet,disintegrating 4 mg PO Q8H PRN (Reason: nausea and vomiting) Qty: 14 0RF dicyclomine 20 mg tablet 20 mg PO QID Qty: 20 0RF promethazine 25 mg tablet 25 mg PO Q6H PRN (Reason: nausea and vomiting) Qty: 20 0RF ondansetron 4 mg tablet,disintegrating 4 mg PO Q8H PRN (Reason: nausea and vomiting) Qty: 10 0RF hyoscyamine sulfate [Levsin] 0.125 mg tablet 0.125 mg PO QID Qty: 14 0RF ondansetron 4 mg tablet,disintegrating 4 mg PO Q6H PRN (Reason: nausea and vomiting) Qty: 10 0RF alum-mag hydroxide-simeth [Maalox Advanced] 200-200-20 mg/5 mL suspension 10 ml PO QID PRN (Reason: dyspepsia) Qty: 300 0RF Rx Instructions: administer between meals and at bedtime ondansetron 4 mg tablet,disintegrating 4 mg PO Q8H PRN (Reason: nausea and vomiting) Qty: 10 0RF dicyclomine 20 mg Tablet 20 mg PO BID Patient Comments: HAVE NOT HAD A DOSE. UNABLE TO OBTAIN FROM HIS PHARMACY Eliquis 5 mg Tablet 5 mg PO BID dicyclomine 20 mg tablet 20 mg PO BID Qty: 30 0RF famotidine [Pepcid] 20 mg tablet 20 mg PO BID 42 Days Qty: 84 0RF ondansetron 4 mg tablet,disintegrating 4 mg PO Q8H PRN (Reason: nausea and vomiting) Qty: 10 0RF dicyclomine 20 mg tablet 20 mg PO TID PRN (Reason: abdominal pain) Qty: 20 0RF amoxicillin-pot clavulanate 875-125 mg tablet 1 tablet PO Q12H Qty: 14 0RF pantoprazole 40 mg tablet,delayed release (DR/EC) 40 mg PO HS Qty: 14 0RF famotidine [Pepcid] 20 mg tablet 20 mg PO DAILY Qty: 30 0RF ondansetron 4 mg tablet,disintegrating 4 mg PO Q6H PRN (Reason: nausea and vomiting) 3 Days Qty: 12 0RF Follow-up/Referrals: John,Td Lewis MD [Primary Care Provider, Unknown]
[2025-01-27] MEDS: HYDROmorphone HCL INJ (*CRX) 1 MG/ML SYR 0.5 MG IV PUSH ×2 (08:35→10:50)
[2025-01-27] MEDS: PANTOPRAZOLE SODIUM IV 40 MG VIAL IV PUSH (08:35)
[2025-01-27] MEDS: ONDANSETRON INJ 4 MG/2 ML VIAL IV PUSH (08:35)
[2025-01-27] MEDS: BELLADONNA ALK/PHENOB ELIX 10 ML, MAG HYDROX/ALUMINUM HYD/SIMETH 30 ML, LIDOCAINE 2% VI... PO (10:03)
--- NOTE | 2025-01-27 10:12 | PC.NURSE ---
Patient was offered toradol for pain control after Dilaudid didn't touch the pain patient became agitated and yelling that he needs a second dose of Dilaudid because it normally takes a couple of doses, I don't want to go to a lower medicine that won't work
--- NOTE | 2025-01-27 10:16 | PC.NURSE ---
Patient aware of need for urine sample, patient unhooked himself and went to the bathroom and did not provide a urine sample, patient reeducated that a urine sample is needed.
== END 2025-01-27 11:05 | disposition home or self-care (01) ==
PROVIDERS: Emergency Provider Emergency Medicine; PCP Family Medicine
DX: R11.15 Cyclical vomiting syndrome unrelated to migraine (principal); R10.9 Unspecified abdominal pain; G89.29 Other chronic pain; F17.210 Nicotine dependence, cigarettes, uncomplicated; F12.90 Cannabis use, unspecified, uncomplicated
CPT/HCPCS: 36415; 80053; 83605; 83690; 85025; 85610; 85730; 96361; 96374; 96375; 96376; 99284; A9270; J1171; J2405; J2470; J7120

== ENCOUNTER 2025-01-29 14:32 | Emergency (ER) | payer MEDICAID, SELFPAY ==
--- OUTSIDE RECORDS SUMMARY | 2023-09-21 09:30 | XMS_ITS ---
Author Organization [facility] Address [address] [place] [address] Care Team Providers Care Blacksmith Helper Name Role Phone John TUCKER, Td Primary Care Provider Unavaila jenny FIGUEROA CONFERENCE CENTER MANAGER, NATALIYA Unavailable IFRAH TUCKER, BRODERICK Unavailable [phone] REASON FOR VISIT ERCP INPT Encounters Encounter Location Date Provider Diagnosis [facility] - Op [address] Sched[address] [place], [place] [phone] 09/21/2023 BRODERICK RG Plan Of Treatment No Information Progress Notes * Donovan BROWN MDOB: 2 (44 yo M)Acc No.[id number]:09/21/2023 Patient: Donovan HASSAN Provider: William Rg MD, FASGE :1980 A ge:43 Y S ex:Male Date:09/21/2023 Address:[address] [id number] Pcp:Td Lopez MD * * Electronic signature of ROSETTE RG MD, MD on 01/29/2025 at 03:35 PM EDT Sign off status: Pending * Provider: William Rg MD, FASGE Date: 09/21/2023 Generated for Printi ng/Faxing/eTransmitting on: 0 01/29/2025 03:35 PM EDT
--- OUTSIDE RECORDS SUMMARY | 2023-09-23 10:00 | XMS_ITS ---
Author Organization [facility] Address [address] [place] [address] Care Team Providers Care Optical Goods Worker Name Role Phone John TUCKER, Td Primary Care Provider Unavaila jenny FIGUEROA SADDLE LINING STITCHER, NATALIYA Unavailable IFRAH TUCKER, BRODERICK Unavailable REASON FOR VISIT ERCP stent pull INPT Encounters Encounter Location Date Provider Diagnosis [facility] - Op [address] [place], [place] [phone] 09/23/2023 BRODERICKNICKY RG Plan Of Treatment No Information Progress Notes * Donovan BROWN MDOB: 2 (44 yo M)Acc No.[id number]:09/23/2023 Patient: Donovan HASSAN Gaby Provider: William Rg MD, FASGE :1980 A ge:43 Y S ex:Male Date:09/23/2023 Address:[address] [id number] Pcp:Td Lopez MD * * Electronic signature of ROSETTE RG MD, MD on 01/29/2025 at 03:34 PM EDT Sign off status: Pending * Provider: William Rg MD, FASGE Date: 0 09/23/2023 Generated for Printi ng/Faxing/eTransmitting on: 0 01/29/2025 03:34 PM EDT
--- OUTSIDE RECORDS SUMMARY | 2024-02-29 04:00 | XMS_ITS ---
Author Organization [facility] Address [address] [place] [address] Care Team Providers Care Bindery Technician Name Role Phone John TUCKER, Td Primary Care Provider Tucker FIGUEROA NP, NATALIYA Porras [phone] REASON FOR VISIT FU ER Visit Encounters Encounter Location Date Provider Diagnosis [facility] [address] [place] [address] 02/29/2024 NATALIYA FIGUEROA Plan Of Treatment No Information Progress Notes * Donovan BROWN MDOB: 2 (44 yo M)Acc No.[id number]:02/29/2024 Progress Notes Patient: Donovan HASSAN Appointment Provider: Enrrique Figueroa CNP :1980 A ge:43 Y S ex:Male Date:02/29/2024 [facility] [facility] Pcp:Td Lopez MD Subjective: * Chief Complaints: * 1 . FU ER Visit. * Medical History: Objective: * Vitals: Assessment: Plan: * Treatment: * * Electronic signature of AMANDA FIGUEROA NP, MSN DATA SCIENCE AND IOT MANAGER-BC on 01/29/2025 at 03:34 PM EDT Sign off status: Pending * Appointment Provider: Enrrique Figueroa CNP Date: 1 Generated for Printing/Faxing/eTransmitting on: 0 01/29/2025 03:34 PM EDT
--- OUTSIDE RECORDS SUMMARY | 2025-01-28 16:15 | XMS_ITS | Encounter Summary ---
Author Organization [facility] Healthcare Address [address] [place] [address] Care Team Providers Care Mortgage Manager Name Role Phone Td Lopez MD Primary Care Provider + Angie Woodard MD Unavailable [phone] Vimal Woodruff MD Unavailable [phone] Reason for Visit * Reason Comments Abdominal Pain Encounter Details Date Type Department Care Team (Late st Contact Info) Description 01/28/2025 4:15 PM CDT - 01/28/2025 6:49 PM CDT Emergency [facility] Emergency Department [address] [place] [id number] Chronic abdominal pain (Primary Dx) Discharge Disposition: Discharge to home or self care Social History Tobacco Use Types Packs/Day Years Used Date Smoking Tobacco: Every Day Cigarettes Smokeless Tobacco: Never Alcohol Use Standard Drinks/Week Comments Not Currently 0 (1 standard drink = 0.6 oz pur e alcohol) [facility] Utilities Answer Date Recorded In the past 12 months has [employer] gas, oil, or water [employer] threatened to shut off services in your [...] week 12/01/2024 How often do you attend [facility] or [facility] services? Never 12/01/2024 Do you belong to any clubs o r organizations such as gnosticist groups, unions, fraternal or athletic groups, or [...] the past [address] [facility], were you homeless or living in a senior care (including now)? No 12/01/2024 Personal Safety Answer Date Recorded Have you ever been in or are you currently in a harmful physical or emotional relationship or is someone making you feel afraid or unsafe? 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 Gender Identity Not on file Sexual Orientation Not on file documented as of this encounter Last Filed Vital Signs Vital Sign Reading Time Taken Comments Blood Pressure 125/84 01/28/2025 6:40 PM CDT Pulse 68 01/28/2025 6:40 PM CDT Temperature 36.8 C (98.3 F) 01/28/2025 2:19 PM CDT Respiratory Rate 18 01/28/2025 6:40 PM CDT Oxygen Saturation 95% 01/28/2025 5:05 PM CDT Inhaled Oxygen Concentration - - Weight 70.9 kg (156 lb 4.9 oz) 01/28/2025 2:19 P M CDT Height - - Body Mass Index 22.43 01/22/2025 5:06 AM CDT documented in this encounter Discharge Instructions * Discharge Instructions* Kelly Krause PA - 01/28/2025 6:34 PM CDT Thank you for allowing us to take care of you at [facility]. Please follow up with your primary care physician or specialist, as soon as possible, and ideally within 7 days. Please take any new medications as prescribed. Please return to the emergency department for worsening of your symptoms or any new problems which may arise. It is mandatory that you follow up, as recommended, with a primary care physician or specialist, per your discharge paperwork.You have received emergency care only at your visit today, an this is nota substitute for ongoing care, further evaluation, or treatment. Therefore, follow-up as directed is not optional, but mandatory. This ensures that any incidental abnormal radiographic and laboratoryfindings are evaluated appropriately. Return immediately for any new symptoms, worsening of symptoms, or persistent symptoms. We are open01/12 and will take care of you. Please follow up with GI within the next week. Do not take Toradol (Ketorolac) at the same time as ibuprofen, naproxen, meloxicam, diclofenac or aspirin * Attachments The following attachments cannot be sent through Care Everywhere. * Chronic Abdominal Pain (AfterCare(R) Instructions(ER/ED)) (Nigerien) documented in this encounter Medications at Time of Discharge dicyclomine (BENTYL) 20 mg tabletIndications:En terocolitis Take 1 tablet (20 mg total) by mouth 2 (two) times a day as needed (Abdominal cramping) 30 tablet 10/14/2024 famotidine (PEPCID) 40 mg tabletIndications:Ga stroesophageal reflux disease without esophagitis Take 1 tablet (40 mg total) by mouth daily 90 tablet 1 10/06/2024 HYDROcodone-acetamin ophen (NORCO) 5-325 mg per tabletIndications:Pa in Take 1 tablet by mouth every 8 [...] as needed for pain 20 tablet 10/14/2024 ketorolac (TORADOL) 10 mg tablet Take 1 tablet (10 mg total) by mouth every 6 (six) hours as needed for pain 20 tablet 01/28/2025 ondansetron (ZOFRAN) 4 mg tablet Take 1 tablet (4 mg total) by mouth every 6 (six) hours 12 tablet 01/28/2025 ondansetron ODT (ZOFRAN-ODT) 4 mg disintegrating tablet Take 1 tablet (4 mg total) by mouth every 6 (six) hours as needed for nausea or vomiting 20 tablet 01/22/[address] (PROTONIX) 40 mg EC tabletIndications:Tr eatment of Non-Bleeding Gastric Disorder Take 1 tablet (40 mg total) by mouth daily 90 tablet 1 10/06/2024 documented as of this encounter Ordered Prescriptions Prescription Sig Dispense Quantity Refills Last Filled Start Date End Date ketorolac (TORADOL) 10 mg tablet Take 1 tablet (10 mg total) by mouth every 6 (six) hours as needed for pain 20 tablet 01/28/2025 ondansetron (ZOFRAN) 4 mg tablet Take 1 tablet (4 mg total) by mouth every 6 (six) hours 12 tablet 01/28/2025 documented in this encounter Discharge Disposition Disposition Code Departure Means Destination Comment s Discharge to home or self care documented in this encounter ED Notes * Kelly Krause PA - 01/28/2025 4:59 PM CDT CHIEF COMPLAINT: Chief Complaint Patient presents with Abdominal Pain HPI 6:34 PM Donovan Bailey is a 44 y.o. male presenting to the ED c/o a flare of chronic abdominal pain. Patient states for the past week he has had abdominal pain on and off. Patient states he has had some nausea and vomiting. Patient denies any abnormal bowel movements, blood in his stool, burning with urination, blood in his urine, blood in his vomit, fever, chest pain, shortness of breath, difficulty breathing, cough. Patient denies taking any medication for his symptoms. PCP: Td Lopez MD PAST MEDICAL HISTORY Past Medical History: Diagnosis Date Anxiety and depression Cannabis abuse with cannabis-induced disorder Cyclic vomiting syndrome Drug-seeking behavior GERD (gastroesophageal reflux disease) Manipulative behavior Pancreatic insufficiency Pancreatitis Sphincter of Oddi dysfunction PAST SURGICAL HISTORY Past Surgical History: Procedure Laterality Date ERCP LAPAROSCOPIC CHOLECYSTECTOMY FAMILY HISTORY Family History Problem Relation Age of Onset Osteoarthritis Mother Family history of osteoarthritis - (Added by TW Conv) MEDICATIONS GIVEN IN THE ED Medications ioversoL (OPTIRAY 350) syringe 100 mL (100 mL intravenous Contrast Given 01/28/25 1630) ondansetron (ZOFRAN) injection 4 mg (4 mg intravenous Given 01/28/25 1658) famotidine (PEPCID) injection 20 mg (20 mg intravenous Given 01/28/25 1702) ketorolac (TORADOL) 30 mg/mL injection 30 mg (30 mg intravenous Given 01/28/25 1700) sodium chloride 0.9% bolus 1,000 mL (0 mL intravenous Stopped 01/28/25 175) diazePAM (VALIUM) injection 10 mg (10 mg intravenous Given 01/28/25 1755) CURRENT HOME MEDICATIONS No current facility-administered medications for this encounter. Current Outpatient Medications: dicyclomine (BENTYL) 20 mg tablet, Take 1 tablet (20 mg total) by mouth 2 (two) times a day as needed (Abdominal cramping), Disp: 30 tablet, Rfl: 0 famotidine (PEPCID) 40 mg tablet, Take 1 tablet (40 mg total) by mouth daily, Disp: 90 tablet, Rfl:1 HYDROcodone-acetaminophen (NORCO) 5-325 mg per tablet, Take 1 tablet by mouth every 8 (eight) hoursas needed for pain, Disp: 12 tablet, Rfl: 0 hyoscyamine (OSCIMIN) 0.125 mg, Take 1 tablet (0.125 mg total) by mouth every 8 (eight) hours as needed, Disp: , Rfl: ibuprofen (ADVIL,MOTRIN) 400 mg tablet, Take 1 tablet (400 mg total) by mouth every 8 (eight) hoursas needed for pain, Disp: 20 tablet, Rfl: 0 ketorolac (TORADOL) 10 mg tablet, Take 1 tablet (10 mg total) by mouth every 6 (six) hours as needed for pain, Disp: 20 tablet, Rfl: 0 ondansetron ODT (ZOFRAN-ODT) 4 mg disintegrating tablet, Take 1 tablet (4 mg total) by mouth every 6 (six) hours as needed for nausea or vomiting, Disp: 20 tablet, Rfl: [address] (PROTONIX) 40 mg EC tablet, Take 1 tablet (40 mg total) by mouth daily, Disp: 90 tablet, Rfl: 1 ALLERGIES Allergies Allergen Reactions Haloperidol Other (See comments) and Muscle pain Musculoskeletal pain; Tolerates droperidol without negative side effects Sulfa (Sulfonamide Antibiotics) Other (See comments) Reaction: neurological symptoms per patient Capsaicin Other (See comments) Pt states it gets into his scars and causes a lot of pain Compazine [Prochlorperazine] Mental status changes Doxycycline Stomach upset Metoclopramide Hcl Anxiety and Other (See comments) Other reaction: muscle spasm SOCIAL HISTORY Social History Tobacco Use Smoking status: Every Day Current packs/day: 1.00 Types: Cigarettes Smokeless tobacco: Never Substance and Sexual Activity Drug use: Yes Types: Marijuana Sexual activity: Defer Alcohol Use: Not At Risk (11/15/2023) AUDIT-C Frequency of Alcohol Consumption: Never Average Number of Drinks: Patient does not drink Frequency of Binge Drinking: Never PHYSICAL EXAM TRIAGE VITAL SIGNS: ED Triage Vitals [01/28/25 1419] Temp Pulse Resp BP SpO2 36.8 ??C (98.3 ??F) 85 22 (!) 163/109 94 % Temp src Heart Rate Source Patient Position BP Location FiO2 (%) Oral -- -- -- -- Height Height Method Weight Weight Method -- -- 70.9 kg (156 lb 4.9 oz) Standing scale Physical Exam Vitals and nursing note reviewed. Constitutional: General: He is not in acute distress. Appearance: He is well-developed. HENT: Head: Normocephalic and atraumatic. Eyes: Conjunctiva/sclera: Conjunctivae normal. Cardiovascular: Rate and Rhythm: Normal rate and regular rhythm. Heart sounds: No murmur heard. Pulmonary: Effort: Pulmonary effort is normal. No respiratory distress. Breath sounds: Normal breath sounds. Abdominal: General: Bowel sounds are normal. Palpations: Abdomen is soft. Tenderness: There is generalized abdominal tenderness. Musculoskeletal: General: No swelling. Cervical back: Neck supple. Skin: General: Skin is warm and dry. Capillary Refill: Capillary refill takes less than 2 seconds. Neurological: Mental Status: He is alert. Psychiatric: Mood and Affect: Mood normal. LABS Labs Reviewed URINALYSIS AND REFLEX TO MICROSCOPIC AND CULTURE - Abnormal Result Value Color, ur Yellow Clarity, ur Cloudy (*) Specific gravity, ur 1.012 pH, urine 8.0 Protein, ur ql Negative Glucose, ur ql Negative Ketones, ur Negative Bilirubin, ur Negative Blood, ur Negative Urobilinogen, ur <2.0 Nitrite, ur Negative Leukocyte esterase, ur Negative UA reflex comment Value: Reflex conditions for microscopic UA and culture not met. CBC WITH AUTO DIFFERENTIAL - Abnormal WBC 13.18 (*) Hgb 14.6 Hct 43.5 Plt 258 MPV 10.0 RBC 4.95 MCV 87.9 MCH 29.5 MCHC 33.6 RDW CV 14.8 RDW SD 47.5 NRBC abs 0.00 DIFFERENTIAL AUTO - Abnormal Neutrophil abs 11.33 (*) Imm gran abs 0.05 Lymphocyte abs 0.97 Monocyte abs 0.76 Eosinophil abs 0.03 Basophil abs 0.04 Neutrophil pct 85.9 Imm gran pct 0.4 Lymphocyte pct 7.4 Monocyte pct 5.8 Eosinophil pct 0.2 Basophil pct 0.3 COMPREHENSIVE METABOLIC PANEL Sodium 142 Potassium, pl 4.0 Chloride 106 CO2 22 Anion gap 14 BUN 7 Creatinine 0.90 Glucose 136 Calcium 9.6 Bilirubin, total 0.5 Protein, pl 6.9 Albumin 4.6 Alk phos 87 ALT 13 AST 15 LIPASE Lipase 92 TROPONIN T HIGH-SENSITIVITY SERIES (BASELINE, 2HR, 4HR, 6HR) Trop T hs 7 TROPONIN T HIGH-SENSITIVITY 2-HOUR Trop T hs <6 Trop T hs delta -1 Trop T hs interp Insignificant EGFR eGFR >90 RADIOLOGY Impression: CT abdomen pelvis:1. Stable 5 mm low-density lesion in the dome of the right hepatic lobe compared with 01/22/2025. It probably represents a small cyst or hemangioma, but is too small to characterize. 2. Mild fatty infiltration of the liver. 3. Surgical absence of the gallbladder. Pneumobilia. 4. Cortical scarring lower pole right kidney. EKG Normal sinus rhythm ED COURSE/MEDICAL DECISION MAKING Differential diagnosis included but not limited to Appendicitis, surgical biliary disease, pancreatitis, SBO, genital torsion, kidney stone, uti. Doubt atypical ACS. Patient's medical records were reviewed. Patient seen in the ED for an acute flare of his chronic abdominal pain. On exam patient has generalized tenderness of the abdomen. Patient has normal bowel sounds. Patient's white blood cell count mildly elevated at 13.13 which is down from 6 days ago. No other acute abnormality seen on labs. Patient's EKG shows normal sinus rhythm. Patient's troponins negative. CT abdomen pelvis shows no acute abnormalities. Patient given symptomatic medication. Patient reports improvement in symptoms. Findings discussed with the patient who feels comfortable going home with symptomatic medication. Patient expressed understanding. Patient is stable for discharge home and follow up with the PCP. Procedures FINAL IMPRESSION Chronic abdominal pain DISPOSITION: Home All findings were discussed with patient. Pt agreeable with plan. Non toxic appearing, vitals stable. Patient stable for discharge home. Given return to ER precautions Close outpatient follow-up with a low threshold to return has been mandated, concerning symptoms have been emphasized in detail, and this patient expresses understanding PATIENT INSTRUCTED TO FOLLOW UP Td Lopez MD [address] [place] [id number] In 1 week DISCHARGE MEDICATIONS Your medication list ASK your doctor about these medications Instructions Last Dose Given Next Dose Due dicyclomine 20 mg tablet Commonly known as: BENTYL 20 mg, oral, 2 times daily PRN famotidine 40 mg tablet Commonly known as: PEPCID 40 mg, oral, Daily HYDROcodone-acetaminophen 5-325 mg per tablet Commonly known as: NORCO 1 tablet, oral, Every 8 hours PRN hyoscyamine 0.125 mg Commonly known as: OSCIMIN 0.125 mg, Every 8 hours PRN ibuprofen 400 mg tablet Commonly known as: ADVIL,MOTRIN 400 mg, oral, Every 8 hours PRN ketorolac 10 mg tablet Commonly known as: TORADOL 10 mg, oral, Every 6 hours PRN ondansetron ODT 4 mg disintegrating tablet Commonly known as: ZOFRAN-ODT 4 mg, oral, Every [address] 40 mg EC tablet Commonly known as: PROTONIX 40 mg, oral, Daily This examination was transcribed using the [employer] voice recognition system without human main line assembler. In an effort to expedite patient care, this report has not been adjusted for typographical, grammatical, and syntax by a trained medical insurance verifier. Kelly Krause PA 01/28/251833 Kelly Krause PA 01/28/251834 * Catherine Kimbrough RN - 01/28/2025 2:19 PM CDT Pt reports I've been having belly pain for the past week that has been coming and going. Pt endorses n/v. Denies any diarrhea; last BM today. Reports generalized abd pain. documented in this encounter Plan of Treatment Not on file documented as of this encounter Procedures Procedure Name Priority Date/Time Associated Diagnosis Comments TROPONIN T HIGH-SENSITIVITY 2-HOUR Timed 01/28/2025 4:[address] ABDOMEN PELVIS W CONTRAST ED 01/28/2025 4:30 PM CDT TROPONIN T HIGH-SENSITIVITY SERIES (BASELINE, 2HR, 4HR, 6HR) STAT 01/28/2025 2:38 PM CDT EGFR STAT 01/28/2025 2:38 PM CDT DIFFERENTIAL AUTO STAT 01/28/2025 2:3 8 PM CDT URINALYSIS AND REFLEX TO MICROSCOPIC AND CULTURE STAT 01/28/2025 2:38 PM CDT CBC WITH AUTO DIFFERENTIAL STAT 01/28/2025 2:38 PM CDT LIPASE STAT 01/28/2025 2:38 PM CDT COMPREHENSIVE METABOLIC PANEL STAT 01/28/2025 2:38 PM CDT documented in this encounter Results * Troponin T high-sensitivity 2-hour (01/28/2025 4:34 PM CDT) Trop T hs <6 <=22 ng/L Comment: Interpretive Data For further hscTnT resources including the diagnostic algorithm and an aid in interpretation, copy and paste this link: https://nrl.testcatalog.org/show/hsTrop Current Interpretive Data last revised 2020. Testing performed by: [address] [address] Trop T hs delta -1 ng/L NEEL Comment:Testing performed by : [address] [address] Trop T hs interp Insignificant NEEL Comment:Testing performed by : [address] [address] Blood 01/28/2025 4:34 PM CDT 01/28/2025 4:41 PM CDT us Perez Hayes DO LAB BLOOD ORDERABLES Final Res ult NEEL [address] [facility] Department [place] [address] * CT Abdomen Pelvis W Contrast (01/28/2025 4:30 PM CDT) Anatomical Region Laterality Modality Body N/A Computed Tomogra phy 01/28/2025 4:34 PM CDT Narrative 01/28/2025 4:49 PM CDT EXAM DESCRIPTION: CT ABDOMEN PELVIS W CONTRAST REASON FOR STUDY: Abdominal pain, acute, nonlocalized I've been having belly pain for the past week that has been coming and going. Pt endorses n/v. Denies any diarrhea; last BM today. Reports generalized abd pain. TECHNIQUE: CT scan of the abdomen and pelvis performed with intravenous and without oral contrast using helical scanning technique with dynamic intravenous contrast injection. Reconstructed coronal and sagittal MPR images reviewed. All images stored on PACS. Automated exposure control was used as a dose optimization technique for this examination. CONTRAST TYPE/DOSE: 100mL of IOVERSOL 350 MG IODINE/ML INTRAVENOUS SYRINGE injected via intravenous COMPARISON: 01/22/2025 FINDINGS: LOWER CHEST: No significant pulmonary abnormalities. No effusion. LIVER: Normal size. Stable 5 mm low-density lesion in the dome of the right hepatic lobe compared with 01/22/2025. It probably represents a small cyst or hemangioma, but is too small to characterize. Mild fatty infiltration of the liver. GALLBLADDER: Surgically absent. BILE DUCTS: No intrahepatic or extrahepatic ductal dilatation. Pneumobilia. SPLEEN: Normal size. No focal lesions. PANCREAS: No identified cystic or solid masses. No significant calcifications. No adjacent inflammation or peripancreatic fluid collections. Pancreatic duct not dilated. ADRENALS: Normal. KIDNEYS/URINARY TRACT: No identified significant cystic or solid masses. No visualized stones. No hydronephrosis or hydroureter. Symmetric enhancement. Cortical scarring lower pole right kidney. Urinary bladder is unremarkable. GI: No dilated bowel loops. No obvious wall thickening. Normal appendix. No significant diverticular disease. PERITONEUM: No ascites or free air. RETROPERITONEUM: No mass or adenopathy. REPRODUCTIVE: No significant abnormality. VASCULATURE: No abdominal aortic aneurysm. MUSCULOSKELETAL: No significant abnormality. OTHER: Small periumbilical hernia containing only fat. IMPRESSION: 1. Stable 5 mm low-density lesion in the dome of the right hepatic lobe compared with 01/22/2025. It probably represents a small cyst or hemangioma, but is too small to characterize. 2. Mild fatty infiltration of the liver. 3. Surgical absence of the gallbladder. Pneumobilia. 4. Cortical scarring lower pole right kidney. THIS IS AN ELECTRONICALLY VERIFIED FINAL REPORT 01/28/2025 4:49 PM - Electronically signed by Jose Francisco Jesus M.D. KT: MAN Report ID: [id number] Reading Location: [id number] Procedure Note Jose Francisco Jesus MD - 01/28/2025 EXAM DESCRIPTION: CT ABDOMEN PELVIS W CONTRAST REASON FOR STUDY: Abdominal pain, acute, nonlocalized I've been having belly pain for the past week that has been coming and going. Pt endorses n/v. Denies any diarrhea; last BM today. Reports generalized abd pain. TECHNIQUE: CT scan of the abdomen and pelvis performed with intravenousand without oral contrast using helical scanning technique with dynamic intravenous contrast injection. Reconstructed coronal and sagittal MPRimages reviewed. All images stored on PACS. Automated exposure control was usedas a dose optimization technique for this examination. CONTRAST TYPE/DOSE: 100mL of IOVERSOL 350 MG IODINE/ML INTRAVENOUSSYRINGE injected via intravenous COMPARISON: 01/22/2025 FINDINGS: LOWER CHEST: No significant pulmonary abnormalities. Noeffusion. LIVER: Normal size. Stable 5 mm low-density lesion in the dome of theright hepatic lobe compared with 01/22/2025. It probably represents a smallcyst or hemangioma, but is too small to characterize. Mild fatty infiltration ofthe liver. GALLBLADDER: Surgically absent. BILE DUCTS: No intrahepatic or extrahepatic ductal dilatation. Pneumobilia. SPLEEN: Normal size. No focal lesions. PANCREAS: No identified cystic or solid masses. No significant calcifications. No adjacent inflammation or peripancreatic fluidcollections. Pancreatic duct not dilated. ADRENALS: Normal. KIDNEYS/URINARY TRACT: No identified significant cystic or solid masses.No visualized stones. No hydronephrosis or hydroureter. Symmetricenhancement. Cortical scarring lower pole right kidney. Urinary bladder isunremarkable. GI: No dilated bowel loops. No obvious wall thickening. Normalappendix. No significant diverticular disease. PERITONEUM: No ascites or free air. RETROPERITONEUM: No mass or adenopathy. REPRODUCTIVE: No significant abnormality. VASCULATURE: No abdominal aortic aneurysm. MUSCULOSKELETAL: No significant abnormality. OTHER: Small periumbilical hernia containing only fat. IMPRESSION: 1. Stable 5 mm low-density lesion in the dome of the right hepatic lobe compared with 01/22/2025. It probably represents a small cyst orhemangioma, but is too small to characterize. 2. Mild fatty infiltration of the liver. 3. Surgical absence of the gallbladder. Pneumobilia. 4. Cortical scarring lower pole right kidney. THIS IS AN ELECTRONICALLY VERIFIED FINAL REPORT 01/28/2025 4:49 PM - Electronically signed by Jose Francisco Jesus M.D. KT: MAN Report ID: [id number] Reading Location: [id number] us Kelly LAWTON IMG CT PROCEDURES Renee l Result * eGFR (01/28/2025 2:38 PM CDT) Pathologist [facility] eGFR [...] was last reviewed 2021. Testing performed by: [address] [address] Blood 01/28/2025 2:38 PM CDT 01/28/2025 2:42 PM CDT us Perez Hayes DO LAB BLOOD ORDERABLES Final Res ult NEEL [address] [facility] Department [place] [address] * (ABNORMAL) Differential, auto (01/28/2025 2:38 PM CDT) Pathologist [facility] Neutrophil abs 11.33(H) 1.50 - 6.50 K/cumm Comment:Testing performed by : [address] [address] Imm gran abs 0.05 0.00 - 0.10 K/cumm NEEL SMITH Comment:Testing performed by : [address] [address] Lymphocyte abs 0.97 0.80 - 3.30 K/cumm [facility] Comment:Testing performed by : [address], [place]., [address] Monocyte abs 0.76 0.20 - 0.80 K/cumm [facility] Comment:Testing performed by : [address], [place]., [address] Eosinophil abs 0.03 0.00 - 0.50 K/cumm [facility] Comment:Testing performed by : [address], [place]., [address] Basophil abs 0.04 0.00 - 0.10 K/cumm [facility] Comment:Testing performed by : [address] [address] Neutrophil pct 85.9 % [facility] Comment: Interpretive Data Percent cell count reference ranges are not reported, since discordance with absolute values may lead to misinterpretation of CBC data. Current Interpretive Data was last revised on 2017. Testing performed by: [address] [address] Imm gran pct 0.4 % [facility] Comment: Interpretive Data Percent cell count reference ranges are not reported, since discordance with absolute values may lead to misinterpretation of CBC data. Current Interpretive Data was last revised on 2017. Testing performed by: [address] [address] Lymphocyte pct 7.4 % [facility] Comment: Interpretive Data Percent cell count reference ranges are not reported, since discordance with absolute values may lead to misinterpretation of CBC data. Current Interpretive Data was last revised on 2017. Testing performed by: [address] [address] Monocyte pct 5.8 % [facility] Comment: Interpretive Data Percent cell count reference ranges are not reported, since discordance with absolute values may lead to misinterpretation of CBC data. Current Interpretive Data was last revised on 2017. Testing performed by: [address] [address] Eosinophil pct 0.2 % [facility] Comment: Interpretive Data Percent cell count reference ranges are not reported, since discordance with absolute values may lead to misinterpretation of CBC data. Current Interpretive Data was last revised on 2017. Testing performed by: [address] [address] Basophil pct 0.3 % NEEL Comment: Interpretive Data Percent cell count reference ranges are not reported, since discordance with absolute values may lead to misinterpretation of CBC data. Current Interpretive Data was last revised on 2017. Testing performed by: [address] [address] Blood 01/28/2025 2:38 PM CDT 01/28/2025 2:42 PM CDT Perez Hayes DO LAB BLOOD ORDERABLES Final Res ult Performing Organization Address [facility] de Phone Number [address] [employer] [place] [address] * Troponin T high-sensitivity series (baseline, 2hr, 4hr, 6hr) (01/28/2025 2:38 PM CDT) Pathologist [facility] Trop T hs 7 <=22 ng/L Comment: Interpretive Data For further hscTnT resources including the diagnostic algorithm and an aid in interpretation, copy and paste this link: https://nrl.testcatalog.org/show/[email or web address] Current Interpretive Data last revised 2020. Testing performed by: [address] [address] Blood 01/28/2025 2:38 PM CDT 01/28/2025 2:42 PM CDT us Perez Hayes DO LAB BLOOD ORDERABLES Final Res ult Performing Organization Address City/[facility] Co de Phone Number [address] [employer] [place] [address] * (ABNORMAL) Urinalysis reflex to microscopic and culture Urine (01/28/2025 2:38 PM CDT) Color, ur Yellow Yellow Comment:Testing performed by : [address] [address] Clarity, ur Cloudy(A) Clear NEEL Comment:Testing performed by : [address], [place]., [address] Specific gravity, ur 1.012 1.003 - 1.030 NEEL Comment:Testing performed by : [address] [address] pH, urine 8.0 NEEL Comment: Interpretive Data U rine pH is affected by diet, medications, systemic acid-base disturbances, and renal tubular function. pH may affect urinary stone formation. For example, urine pH below 6.0 may help reduce the tendency for calcium phosphate stones and pH greater than 6.0 may reduce the tendency for uric acid stone formation. Source: [facility] Scaled Inference Current Interpretive Data was last revised on 2017 Testing performed by: [address] [address] Protein, ur ql Negative Negative NEEL Comment:Testing performed by : [address] [address] Glucose, ur ql Negative Negative NEEL Comment:Testing performed by : [address] [address] Ketones, ur Negative Negative NEEL Comment:Testing performed by : [address] [address] Bilirubin, ur Negative Negative NEEL Comment:Testing performed by : [address] [address] Blood, ur Negative Negative NEEL Comment:Testing performed by : [address] [address] Urobilinogen, ur <2.0 <2.0 mg/dL NEEL Comment:Testing performed by : [address] [address] Nitrite, ur Negative Negative NEEL Comment:Testing performed by : [address] [address] Leukocyte esterase, ur Negative Negative NEEL Comment:Testing performed by : [address] [place]., [address] UA reflex comment Reflex conditions for microscopic UA and culture not met. NEEL Comment:Testing performed by : [address] [address] Urine 01/28/2025 2:38 PM CDT 01/28/2025 2:42 PM CDT us Perez Hayes DO LAB MICROBIOLOGY - GENERAL ORD ERABLES Final Result Performing Organization Address [facility] Co de Phone Number NEEL [address] [address] * Lipase (01/28/2025 2:38 PM CDT) Pathologist [facility] Lipase 92 10 - 99 Units/L Comment:Testing performed by : [address] [address] Blood Venous blood specimen / Unknown 01/28/2025 2:38 PM CDT 01/28/2025 2:42 PM CDT us Perez Hayes DO LAB BLOOD ORDERABLES Final Res ult Performing Organization Address [facility] Co de Phone Number [address] [address] * Comprehensive metabolic panel (01/28/2025 2:38 PM CDT) Pathologist [facility] Sodium 142 135 - 145 mmol/L Comment:Testing performed by : [address] [address] Potassium, pl 4.0 3.3 - 4.9 mmol/L NEEL Comment:Testing performed by : [address] [address] Chloride 106 97 - 110 mmol/L NEEL Comment:Testing performed by : [address] [address] CO2 22 22 - 32 mmol/L NEEL Comment:Testing performed by : [address] [address] Anion gap 14 2 - 15 mmol/L NEEL Comment:Testing performed by : [address] [address] BUN 7 6 - 25 mg/dL NEEL Comment:Testing performed by : [address] [address] Creatinine 0.90 0.80 - 1.30 mg/dL NEEL Comment:Testing performed by : [address] [address] Glucose 136 70 - 199 mg/dL [facility] Comment: Interpretive Data Fasting glucose >/= [...] was last revised 2022. Testing performed by: [address] [address] Calcium 9.6 8.5 - 10.3 mg/dL [facility] Comment:Testing performed by : [address] [address] Bilirubin, total 0.5 0.1 - 1.2 mg/dL [facility] Comment:Testing performed by : [address] [address] Protein, pl 6.9 6.5 - 8.5 g/dL [facility] Comment:Testing performed by : [address] [address] Albumin 4.6 3.5 - 5.0 g/dL [facility] Comment:Testing performed by : [address] [address] Alk phos 87 40 - 130 Units/L NEEL Comment:Testing performed by : [address] [address] ALT 13 7 - 55 Units/L NEEL SMITH Comment:Testing performed by : [address] [address] AST 15 10 - 50 Units/L NEEL SMITH Comment:Testing performed by : [address] [address] Blood 01/28/2025 2:38 PM CDT 01/28/2025 2:42 PM CDT us Perez Hayes DO LAB BLOOD ORDERABLES Final Res ult NEEL [address] [facility] Department [place] [address] * (ABNORMAL) CBC with auto differential (01/28/2025 2:38 PM CDT) WBC 13.18(H) 3.80 - 9.90 K/cumm Comment:Testing performed by : [address] [address] Hgb 14.6 13.0 - 17.5 g/dL NEEL SMITH Comment:Testing performed by : [address] [address] Hct 43.5 38.9 - 50.3 % NEEL SMITH Comment:Testing performed by : [address] [address] Plt 258 150 - 400 K/cumm NEEL SMITH Comment:Testing performed by : [address] [address] MPV 10.0 9.1 - 12.3 fL NEEL SMITH Comment:Testing performed by : [address] [address] RBC 4.95 4.30 - 5.80 M/cumm NEEL SMITH Comment:Testing performed by : [address] [address] MCV 87.9 81.3 - 96.4 fL NEEL SMITH Comment:Testing performed by : [address] [address] MCH 29.5 27.1 - 33.3 pg NEEL SMITH Comment:Testing performed by : [facility], [address] [place] [address]., [address] MCHC 33.6 32.3 - 35.7 g/dL NEEL SMITH Comment:Testing performed by : [address] [address] RDW CV 14.8 11.1 - 14.9 % NEEL SMITH Comment:Testing performed by : [address] [address] RDW SD 47.5 35.7 - 48.1 fL NEEL SMITH Comment:Testing performed by : [address], [place]., [address] NRBC abs 0.00 0.00 - 0.01 K/cumm NEEL SMITH Comment:Testing performed by : [address] [address] Blood Venous blood specimen / Unknown 01/28/2025 2:38 PM CDT 01/28/2025 2:42 PM CDT us Perez Hayes DO LAB BLOOD ORDERABLES Final Res ult NEEL [facility] Department [place] [address] documented in this encounter Visit Diagnoses Diagnosis Chronic abdominal pain- Primary Abdominal pain, unspecified site documented in this encounter Administered Medications Inactive Administered Medications - up to 3 most recent administrations Medication Order MAR Action Action Date Dose Rate Site diazePAM (VALIUM) injection 10 mg 10 mg, intravenous, Administer over 1 Minutes, Once, On 01/28/25 at 1750, For 1 dose Given 01/28/2025 5:55 PM CDT 10 mg famotidine (PEPCID) injection 20 mg 20 mg, intravenous, Administer over 2 Minutes, Once, On 01/28/25 at 1656, For 1 dose Given 01/28/2025 5:02 PM CDT 20 mg ioversoL (OPTIRAY 350) syringe 100 mL 100 mL, intravenous, Once in imaging, contrast, Starting on 01/28/25 at 1630, For 1 dose Contrast Given 01/28/2025 4:30 PM CDT 100 mL ketorolac (TORADOL) 30 mg/mL injection 30 mg 30 mg, intravenous, Once, On 01/28/25 at 1656, For 1 dose, For Adult IV push, administer over 15 seconds, Indications: PainIndications:Pain Given 01/28/2025 5:00 PM CDT 30 mg ondansetron (ZOFRAN) injection 4 mg 4 mg, intravenous, Administer over 2 Minutes, Once, On 01/28/25 at 1656, For 1 dose Given 01/28/2025 4:58 PM CDT 4 mg sodium chloride 0.9% bolus 1,000 mL 1,000 mL, intravenous, at 999 mL/hr, Administer over 1 Hours, Once, On 01/28/25 at 1702, For 1 dose New Bag 01/28/2025 5:07 PM CDT 1,000 mL 999 mL/hr documented in this encounter Active and Recently Administered Medications Times are shown in CDT. Scheduled Medication Order 01/26/2025 01/27/2025 01/28/2025 diazePAM (VALIUM) injection 10 mg (COMPLETED) 10 mg, intravenous, Administer over 1 Minutes, Once, On 01/28/25 at 1750, For 1 dose 1755 (Given - Provid er: Lola Garcia RN) famotidine (PEPCID) injection 20 mg (COMPLETED) 20 mg, intravenous, Administer over 2 Minutes, Once, On 01/28/25 at 1656, For 1 dose 1702 (Given - Provid er: Lola Garcia RN) ketorolac (TORADOL) 30 mg/mL injection 30 mg (COMPLETED) 30 mg, intravenous, Once, On 01/28/25 at 1656, For 1 dose, For Adult IV push, administer over 15 seconds, Indications: Pain 1700 (Given - Provid er: Lola Garcia RN) ondansetron (ZOFRAN) injection 4 mg (COMPLETED) 4 mg, intravenous, Administer over 2 Minutes, Once, On 01/28/25 at 1656, For 1 dose 1658 (Given - Provid er: Lola Garcia RN) sodium chloride 0.9% bolus 1,000 mL (COMPLETED) 1,000 mL, intravenous, at 999 mL/hr, Administer over 1 Hours, Once, On 01/28/25 at 1702, For 1 dose 1707 (New Bag - Prov ider: Lola Garcia, RN)1758 (Stopped - Provider: Lola Garcia, JOHN) PRN Medication Order 01/26/2025 01/27/2025 01/28/2025 ioversoL (OPTIRAY 350) syringe 100 mL (COMPLETED) 100 mL, intravenous, Once in imaging, contrast, Starting on 01/28/25 at 1630, For 1 dose 1630 (Contrast Given - Provider: Larry Plascencia RT) documented in this encounter Orders EKG Orders Without Results Count Last Ordered D ate First Ordered Date ECG 12-LEAD 1 01/28/2025 IV Count Last Ordered Date First Orde red Date SALINE LOCK IV 1 01/28/2025 documented in this encounter Care Teams Mortgage Manager Relationship Specialty Start Date End Date Td Lopez MD [address] [facility] [address] [place] [address] PCP - General Family Medicine 11/09/20 Angie Woodard MD [address] [facility] [address] [place] [address] Consulting Physician Gastroenterology 07/17/21 Vimal Woodruff MD [address] [facility] [address] [place] [address] Consulting Physician Gastroenterology 02/10/22 documented as of this encounter
--- OUTSIDE RECORDS SUMMARY | 2025-01-28 16:15 | XMS_ITS | Encounter Summary ---
Author Organization [facility] Healthcare Address [address] [place] [address] Care Team Providers Care Recovery Specialist Name Role Phone Td Lopez MD Primary Care Provider + Angie Woodard MD Unavailable [phone] Vimal Woodruff MD Unavailable [phone] Reason for Visit * Reason Comments Abdominal Pain Encounter Details Date Type Department Care Team (Late st Contact Info) Description 01/28/2025 4:15 PM CDT - 01/28/2025 6:49 PM CDT Emergency [facility] Emergency Department [address] [place] [id number] Chronic abdominal pain (Primary Dx) Discharge Disposition: Discharge to home or self care Social History Tobacco Use Types Packs/Day Years Used Date Smoking Tobacco: Every Day Cigarettes Smokeless Tobacco: Never Alcohol Use Standard Drinks/Week Comments Not Currently 0 (1 standard drink = 0.6 oz pur e alcohol) [facility] Utilities Answer Date Recorded In the past 12 months has [employer], gas, oil, or water [employer] threatened to shut off services in your [...] week 12/01/2024 How often do you attend [facility] or anabaptism services? Never 12/01/2024 Do you belong to [...] you homeless or living in a senior living (including now)? No 12/01/2024 Personal Safety Answer Date Recorded Have you ever been in or are you currently in a harmful physical or emotional relationship or is someone making you feel afraid or unsafe? Denies 01/28/2025 Sex and Gender Information Value Date Recorded Sex Assigned at Not on file Legal Sex Male 3:38 AM SOURCING INTERN Gender Identity Not on file Sexual Orientation [...] us to take care of you at [facility]. Please follow up with your primary care [...] Everywhere. * Chronic Abdominal Pain (AfterCare(R) Instructions(ER/ED)) (Slovenian) documented in this encounter Medications at Time [...] INSTRUCTED TO FOLLOW UP Td Lopez MD [address] [place] [id number] In 1 week DISCHARGE MEDICATIONS Your medication [...] Daily This examination was transcribed using the Sush[employer] voice recognition system without human human factors specialist. In an effort to expedite patient care, this report has not been adjusted for typographical, grammatical, and syntax by a trained medical review specialist. Kelly Krause PA 01/28/251833 Kelly Krause PA [...] Data last revised 2020. Testing performed by: [address] [address] Trop T hs delta -1 ng/L NEEL Comment:Testing performed by : [address] [address] Trop T hs interp Insignificant NEEL Comment:Testing performed by : [address] [address] Blood 01/28/2025 4:34 PM CDT 01/28/2025 4:41 PM CDT us Perez Hayes DO LAB BLOOD ORDERABLES Final Res ult NEEL [address] [facility] Department [place] [address] * CT Abdomen Pelvis W [...] Francisco Jesus M.D. KT: MAN Report ID: [id number] Reading Location: [id number] Procedure Note Jose Francisco Jesus MD - [...] Francisco Jesus M.D. KT: MAN Report ID: [id number] Reading Location: [id number] us Kelly LAWTON IMG CT PROCEDURES Renee [...] last reviewed 2021. Testing performed by: [address] [address] Blood 01/28/2025 2:38 PM CDT 01/28/2025 2:42 PM CDT us Perez Hayes DO LAB BLOOD ORDERABLES Final Res ult NEEL 69[address] [facility] Department [place] [address] * (ABNORMAL) Differential, auto (01/28/2025 2:38 PM CDT) Pathologist [facility] Neutrophil abs 11.33(H) 1.50 - 6.50 K/cumm Comment:Testing performed by : [address] [address] Imm gran abs 0.05 0.00 - 0.10 K/cumm NEEL SMITH Comment:Testing performed by : [address] [address] Lymphocyte abs 0.97 0.80 - 3.30 K/cumm [facility] Comment:Testing performed by : [address], [place]., [address] Monocyte abs 0.76 0.20 - 0.80 K/cumm [facility] Comment:Testing performed by : [address], [place]., [address] Eosinophil abs 0.03 0.00 - 0.50 K/cumm [facility] Comment:Testing performed by : [address], [place]., [address] Basophil abs 0.04 0.00 - 0.10 K/cumm [facility] Comment:Testing performed by : [address] [address] Neutrophil pct 85.9 % [facility] Comment: Interpretive Data Percent cell count reference ranges are not reported, since discordance with absolute values may lead to misinterpretation of CBC data. Current Interpretive Data was last revised on 2017. Testing performed by: [address] [address] Imm gran pct 0.4 % [facility] Comment: Interpretive Data Percent cell count reference ranges are not reported, since discordance with absolute values may lead to misinterpretation of CBC data. Current Interpretive Data was last revised on 2017. Testing performed by: [address] [address] Lymphocyte pct 7.4 % [facility] Comment: Interpretive Data Percent cell count reference ranges are not reported, since discordance with absolute values may lead to misinterpretation of CBC data. Current Interpretive Data was last revised on 2017. Testing performed by: [address] [address] Monocyte pct 5.8 % [facility] Comment: Interpretive Data Percent cell count reference ranges are not reported, since discordance with absolute values may lead to misinterpretation of CBC data. Current Interpretive Data was last revised on 2017. Testing performed by: [address] [address] Eosinophil pct 0.2 % [facility] Comment: Interpretive Data Percent cell count reference ranges are not reported, since discordance with absolute values may lead to misinterpretation of CBC data. Current Interpretive Data was last revised on 2017. Testing performed by: [address] [address] Basophil pct 0.3 % NEEL Comment: Interpretive Data Percent cell count reference ranges are not reported, since discordance with absolute values may lead to misinterpretation of CBC data. Current Interpretive Data was last revised on 2017. Testing performed by: [address] [address] Blood 01/28/2025 2:38 PM CDT 01/28/2025 2:42 PM CDT Perez Hayes DO LAB BLOOD ORDERABLES Final Res ult Performing Organization Address [facility] de Phone Number [address] [place] [address] * Troponin T high-sensitivity series (baseline, 2hr, 4hr, 6hr) (01/28/2025 2:38 PM CDT) Pathologist [facility] Trop T hs 7 <=22 ng/L Comment: Interpretive Data For further hscTnT resources including the diagnostic algorithm and an aid in interpretation, copy and paste this link: [email or web address].testcatalog.org/show/[email or web address] Current Interpretive Data last revised 2020. Testing performed by: [address] [address] Blood 01/28/2025 2:38 PM CDT 01/28/2025 2:42 PM CDT us Perez Hayes DO LAB BLOOD ORDERABLES Final Res ult Performing Organization Address City/[facility] Co de Phone Number [address] [place] [address] * (ABNORMAL) Urinalysis reflex to microscopic and culture Urine (01/28/2025 2:38 PM CDT) Color, ur Yellow Yellow Comment:Testing performed by : [address] [address] Clarity, ur Cloudy(A) Clear NEEL Comment:Testing performed by : [address], [place]., [address] Specific gravity, ur 1.012 1.003 - 1.030 NEEL Comment:Testing performed by : [address] [address] pH, urine 8.0 NEEL Comment: Interpretive Data U rine pH is affected by diet, medications, systemic acid-base disturbances, and renal tubular function. pH may affect urinary stone formation. For example, urine pH below 6.0 may help reduce the tendency for calcium phosphate stones and pH greater than 6.0 may reduce the tendency for uric acid stone formation. Source: [facility] [employer] Current Interpretive Data was last revised on 2017 Testing performed by: [address] [address] Protein, ur ql Negative Negative NEEL Comment:Testing performed by : [address] [address] Glucose, ur ql Negative Negative NEEL Comment:Testing performed by : [address] [address] Ketones, ur Negative Negative NEEL Comment:Testing performed by : [address] [address] Bilirubin, ur Negative Negative NEEL Comment:Testing performed by : [address] [address] Blood, ur Negative Negative NEEL Comment:Testing performed by : [address] [address] Urobilinogen, ur <2.0 <2.0 mg/dL NEEL Comment:Testing performed by : [address] [address] Nitrite, ur Negative Negative NEEL Comment:Testing performed by : [address] [address] Leukocyte esterase, ur Negative Negative NEEL Comment:Testing performed by : [address] [place]., [address] UA reflex comment Reflex conditions for microscopic UA and culture not met. NEEL Comment:Testing performed by : [address] [address] Urine 01/28/2025 2:38 PM CDT 01/28/2025 2:42 PM CDT us Perez Hayes DO LAB MICROBIOLOGY - GENERAL ORD ERABLES Final Result Performing Organization Address [facility] Co de Phone Number NEEL [address] [address] * Lipase (01/28/2025 2:38 PM CDT) Pathologist [facility] Lipase 92 10 - 99 Units/L Comment:Testing performed by : [address] [address] Blood Venous blood specimen / Unknown 01/28/2025 2:38 PM CDT 01/28/2025 2:42 PM CDT us Perez Hayes DO LAB BLOOD ORDERABLES Final Res ult Performing Organization Address [facility] Co de Phone Number [address] [address] * Comprehensive metabolic panel (01/28/2025 2:38 PM CDT) Pathologist [facility] Sodium 142 135 - 145 mmol/L Comment:Testing performed by : [address] [address] Potassium, pl 4.0 3.3 - 4.9 mmol/L NEEL Comment:Testing performed by : [address] [address] Chloride 106 97 - 110 mmol/L NEEL Comment:Testing performed by : [address] [address] CO2 22 22 - 32 mmol/L NEEL Comment:Testing performed by : [address] [address] Anion gap 14 2 - 15 mmol/L NEEL Comment:Testing performed by : [address] [address] BUN 7 6 - 25 mg/dL NEEL Comment:Testing performed by : [address] [address] Creatinine 0.90 0.80 - 1.30 mg/dL NEEL Comment:Testing performed by : [address] [address] Glucose 136 70 - 199 mg/dL [facility] Comment: [...] last revised 2022. Testing performed by: [address] [address] Calcium 9.6 8.5 - 10.3 mg/dL [facility] Comment:Testing performed by : [address] [address] Bilirubin, total 0.5 0.1 - 1.2 mg/dL [facility] Comment:Testing performed by : [address] [address] Protein, pl 6.9 6.5 - 8.5 g/dL [facility] Comment:Testing performed by : [address] [address] Albumin 4.6 3.5 - 5.0 g/dL [facility] Comment:Testing performed by : [address] [address] Alk phos 87 40 - 130 Units/L NEEL Comment:Testing performed by : [address] [address] ALT 13 7 - 55 Units/L NEEL SMITH Comment:Testing performed by : [address] [address] AST 15 10 - 50 Units/L NEEL SMITH Comment:Testing performed by : [address] [address] Blood 01/28/2025 2:38 PM CDT 01/28/2025 2:42 PM CDT us Perez Hayes DO LAB BLOOD ORDERABLES Final Res ult NEEL [address] [facility] Department [place] [address] * (ABNORMAL) CBC with auto differential (01/28/2025 2:38 PM CDT) WBC 13.18(H) 3.80 - 9.90 K/cumm Comment:Testing performed by : [address] [address] Hgb 14.6 13.0 - 17.5 g/dL NEEL SMITH Comment:Testing performed by : [address] [address] Hct 43.5 38.9 - 50.3 % NEEL SMITH Comment:Testing performed by : [address] [address] Plt 258 150 - 400 K/cumm NEEL SMITH Comment:Testing performed by : [address] [address] MPV 10.0 9.1 - 12.3 fL NEEL SMITH Comment:Testing performed by : [address] [address] RBC 4.95 4.30 - 5.80 M/cumm NEEL SMITH Comment:Testing performed by : [address] [address] MCV 87.9 81.3 - 96.4 fL NEEL SMITH Comment:Testing performed by : [address] [address] MCH 29.5 27.1 - 33.3 pg NEEL SMITH Comment:Testing performed by : [facility], [address] [place] [address]., [address] MCHC 33.6 32.3 - 35.7 g/dL NEEL SMITH Comment:Testing performed by : [address] [address] RDW CV 14.8 11.1 - 14.9 % NEEL SMITH Comment:Testing performed by : [address] [address] RDW SD 47.5 35.7 - 48.1 fL NEEL SMITH Comment:Testing performed by : [address], [place]., [address] NRBC abs 0.00 0.00 - 0.01 K/cumm NEEL SMITH Comment:Testing performed by : [address] [address] Blood Venous blood specimen / Unknown 01/28/2025 2:38 PM CDT 01/28/2025 2:42 PM CDT us Perez Hayes DO LAB BLOOD ORDERABLES Final Res ult NEEL [facility] Department [place] [address] documented in this encounter Visit [...] 01/28/2025 documented in this encounter Care Teams Recovery Specialist Relationship Specialty Start Date End Date Td Lopez MD [address] [facility] [address] [place] [address] PCP - General Family Medicine 11/09/20 Angie Woodard MD [address] [facility] [address] [place] [address] Consulting Physician Gastroenterology 07/17/21 Vimal Woodruff MD [address] [facility] [address] [place] [address] Consulting Physician Gastroenterology 02/10/22 documented as of this encounter
--- OUTSIDE RECORDS SUMMARY | 2025-01-29 14:34 | XMS_ITS | Clinical Summary ---
Author Organization [facility] Address [address] [place] [phone] Phone Care Team Providers Care Rn Visiting Name Role Phone Unavailable Primary Care Provider [...] on file Legal Sex Male 7:38 PM PUBLIC AID ELIGIBILITY ASSISTANT Gender Identity Not on file Sexual Orientation Not on file Last Filed Vital Signs Vital Sign Reading Time Taken Comments Blood Pressure 119/84 07/11/2022 2:03 AM PUBLIC AID ELIGIBILITY ASSISTANT Pulse 80 07/11/2022 2:03 AM PUBLIC AID ELIGIBILITY ASSISTANT Temperature 36.3 C (97.4 F) 07/11/2022 2:03 AM PUBLIC AID ELIGIBILITY ASSISTANT Respiratory Rate 18 07/11/2022 2:03 AM PUBLIC AID ELIGIBILITY ASSISTANT Oxygen Saturation 97% 07/11/2022 2:03 AM PUBLIC AID ELIGIBILITY ASSISTANT Inhaled Oxygen Concentration - - Weight 79.4 kg (175 lb) 07/10/2022 8:06 PM PUBLIC AID ELIGIBILITY ASSISTANT Height 177.8 cm (5' 10) 07/10/2022 8:06 PM PUBLIC AID ELIGIBILITY ASSISTANT Body Mass Index 25.11 07/10/2022 8:06 PM PUBLIC AID ELIGIBILITY ASSISTANT Plan of Treatment Health Maintenance Due Date Last Done Comments HEPATITIS B VACCINES (1 of 3 - 19+ 3-dose series) 2000 HPV VACCINES (1 - 3-dose SCD M series) 2008 INFLUENZA VACCINE (#1) 2024 , 02/29/2020, 02/09/2018 COVID-19 Vaccine (4 - 2024-2 6 season) 2025 10/29/2021, 11/02/2020, 10/05/2020 DTAP/TDAP/TD VACCINES (2 - T d or Tdap) 10/30/2031 10/29/2021 Insurance [facility] MEDICAID [place]ICAID [id number]
--- OUTSIDE RECORDS SUMMARY | 2025-01-29 14:35 | XMS_ITS | Patient Health Record ---
Author Organization [facility] Address [address] [facility] [address] [place] [address] Care Team Providers Care Medication Manager Name Role Phone John TUCKER, Td Primary Care Provider Tucker [employer] SALESPERSON, NATALIYA Unavailable Allergies Allergen (clinical drug ingredient) [...] W/U Status Risk Notes Problem Chronic pancreatitis (204316384) Other chronic pancreatitis (K86.1) Active confirmed Plan Of Treatment No Information Insurance Providers Payer Name Payer Address Payer Phone Subscriber Number Group Number Insured Name Patient Relationship to Insured Coverage Start Date Coverage End Date [address] [id number] [phone] [id number] Donovan Bailey Self - patient is the insured Medical (General) History Medical History History ICD Code chronic pancreatitis cyclic vomiting hyperemesis cannabis Surgical History Surgery Date(Month/Year) cholecystectomy ERCP
--- OUTSIDE RECORDS SUMMARY | 2025-01-29 14:35 | XMS_ITS | Clinical Summary ---
Author Organization [facility] Address [address] [place] [address] Care Team Providers Care Financial Associate Name Role Phone Td Lopez MD Primary Care Provider + Angie Woodard MD Unavailable [phone] Vimal Woodruff MD Unavailable [phone] Allergies Active Allergy Reactions Criticality Noted Date [...] nausea or vomiting 20 tablet 5 Active ondansetron (ZOFRAN) 4 mg tablet Take 1 tablet (4 mg total) by mouth every 6 (six) hours 12 tablet 5 Active ketorolac (TORADOL) 10 mg tablet Take 1 tablet (10 mg total) by mouth every 6 (six) hours as needed for pain 20 tablet 5 Active Active Problems Problem Noted Date Diagnosed Date Intractable nausea and vomiting 12/01/2024 Abdominal pain 10/03/2024 Acute pancreatitis, unspecif ied complication status, unspecified pancreatitis type 08/10/2024 Neck pain 03/25/2024 Assessment & Plan (03/25/2024 11:50 AM BOW MAKER [employer]): - suspect just muscle strain - will check xray - offered PT but pt refused. Protein-calorie malnutrition, moderate 4 Abdominal pain, generalized 09/19/2023 Assessment & Plan (09/25/2023 12:23 PM CDT): - improving - will give small amount of norco until pt heals from his procedure - f/u with GI Current use of supervisor intermediates anticoagulation 023 Assessment & Plan (09/25/2023 12:23 PM CDT): - stable - continue eliquis Assessment & Plan (03/20/2023 11:08 AM BOW MAKER [employer]ODUCTION): - restart eliquis due to life long need for anticoagulation History of thrombosis 03/20/2023 Assessment & Plan (09/25/2023 12:22 PM CDT): - stable - continue eliquis Assessment & Plan (03/20/2023 11:08 AM BOW MAKER [employer]ODUCTION): - restart eliquis due to life long need for anticoagulation SVETLNAA (generalized anxiety disorder) 03/18/2023 Assessment & Plan [...] famotidine Assessment & Plan (03/20/2023 11:08 AM BOW MAKER PRODUCTION): - stable - continue current medication Renal [...] eval. Assessment & Plan (03/25/2024 11:49 AM BOW MAKER [employer]ODUCTION): - ref to derm for eval Drug [...] pain Assessment & Plan (03/25/2024 11:49 AM BOW MAKER [employer]ODUCTION): - poor control - continue hyosciamine, famotidine, zofran - ref to GI for continued treatment Assessment & Plan (03/20/2023 11:07 AM BOW MAKER [employer]ODUCTION): - stable - continue current medication Duodenal [...] prn Assessment & Plan (07/15/2019 11:44 AM BOW MAKER [employer]ODUCTION): - stable - continue bentyl and amitriptyline [...] medication Assessment & Plan (07/15/2019 11:44 AM BOW MAKER [employer]ODUCTION): - stable - continue creon Annual physical [...] able Assessment & Plan (07/15/2019 11:46 AM BOW MAKER PRODUCTION): - encourage healthy diet, exercise - check labs - encouraged quitting smoking Enteritis 02/18/2019 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 Assessment & Plan (07/15/2019 11:37 AM BOW MAKER [employer]ODUCTION): - encouraged pt to quit smoking Abdominal [...] GI Assessment & Plan (03/20/2023 11:07 AM BOW MAKER [employer]ODUCTION): - stable - continue current medication per [...] 09/17/202209/08 Assessment & Plan (03/20/2023 11:08 AM BOW MAKER PRODUCTION): - stable off meds - will monitor [...] 09/25/2023 Assessment & Plan (03/26/2021 11:41 AM BOW MAKER [employer]ODUCTION): - stable today - continue current medications [...] lexapro Assessment & Plan (07/15/2019 11:38 AM BOW MAKER PRODUCTION): - stable - continue current plan Gastroesophageal reflux dise ase without esophagitis 07/15/2019 03/18/2023 Overview (07/15/2019): - GERD managed by Dr Woodard - Pt on omeprazole and carafate for sx control Assessment & Plan (01/01/2021 12:09 PM CDT): - stable - continue current medication Assessment & Plan (02/07/2020 2:32 PM CDT): - stable - continue current medication Assessment & Plan (07/15/2019 11:38 AM BOW MAKER PRODUCTION): - stable - continue omeprazole and carafate Viral illness 07/08/2019 02/12/2021 Assessment & Plan (07/09/2019 9:12 AM BOW MAKER PRODUCTION): Medrol Dosepak as directed. Recommended Mucinex plain [...] this as this is not a viable supervisor intermediates solution - will ref to pain management [...] medication Assessment & Plan (07/15/2019 11:36 AM BOW MAKER [employer]ODUCTION): - controlled - continue current plan Chronic [...] Encounters Date Type Department Care Team Description 01/28/2025 4:15 PM CDT - 01/28/2025 6:[address] [facility] Emergency Department [address] [place] [id number] Chronic abdominal pain (Primary Dx) Discharge Disposition: Discharge to home or self care 01/22/2025 7:28 AM CDT - 01/22/2025 11:05 AM CDT Emergency [address] [address] Freddy Yao DO Chronic abdominal pain (Primary Dx) Discharge Disposition: Discharge to home or self care 12/06/2024 Orders Only [facility] [address] [place] [address] Scanning, Provider 12/01/2024 12:42 AM CDT - 12/03/2024 3:20 PM CDT Hospital Encounter [facility] [address] [place] [id number] Domenic Arias MD Holthaus, MD Alexandra Ayala Fariah Habib, DO Jain, Anshu, MD Enteritis (Primary Dx); Abdominal pain; Cyclic vomiting syndrome; Hyperemesis Discharge Disposition: Discharge to home or self care 11/26/2024 2:02 AM CDT - 11/26/2024 4:[address] [facility] Emergency Department [address] [place] [id number] Blue Warren MD Abdominal pain (Primary Dx); [...] drink = 0.6 oz pur e alcohol) [facility] Utilities Answer Date Recorded In the past 12 months has e [employer] gas, oil, or water [employer] threatened to shut off services in your [...] attend chur ch or gnosticist services? Never 12/01/2024 Do you belong to [...] any time in the past 12 m [facility], were you homeless or living in a half-way (including now)? No 12/01/2024 Personal Safety Answer Date Recorded Have you ever been in or are you currently in a harmful physical or emotional relationship or is someone making you feel afraid or unsafe? Denies 01/28/2025 Sex and Gender Information Value Date Recorded Sex Assigned at Not on file Legal Sex Male 3:38 AM B[employer] MA[employer] Gender Identity Not on file Sexual Orientation [...] oz) 01/28/2025 2:19 P M CDT Height 177.8 cm (5' 10) 01/22/2025 5:06 AM CDT Body Mass Index 22.43 01/22/2025 5:06 AM CDT Plan of Treatment [...] Vaccines Discontinued Medical Devices Explanted Type Area Data Designer Device Identifier Shelf Expiration Date Model / Serial / Lot [employer] [id number] Connell Flexi-Stent 7fr 5cm Small Pigtail Flexible .035in Stent - [id number] Implanted:Qty: 1 on 09/18/2018 by Vimal Woodruff MD at [facility] Explanted:Qty: 1 on 09/20/2018 at [facility] Stent N/A: Pancreas [employer] 06/10/2023 [id number] / / [id number] Conmed Gina [id number] [place] Viabil 10mm 8.5fr 6cm 200cm Fully Covered Self Expand Pull - [id number] - [id number] Implanted:Qty: 1 on 09/18/2018 by Vimal Woodruff MD at [facility] Explanted:Qty: 1 on 09/20/2018 at [facility] Stent N/A: Bile Duct Conmed Gina 06/29/2021 [id number] / [id number] / [employer] Connell Flexi-Stent 7fr 9cm Small Pigtail Flexible .035in Stent [id number] - [id number] Implanted:Qty: 1 on 02/07/2022 by Vimal Woodruff MD at [facility] Explanted:Qty: 1 on 02/10/2022 by Vimal Woodruff MD at [facility] Stent N/A: Pancreas [employer] 09/07/2026 [id number] / / [id number] [employer] Gina Wallflex 10mm X 60mm Fully Covered Biliary [id number] - [id number] Implanted:Qty: 1 on 02/07/2022 by Vimal Woodruff MD at [facility] Explanted:Qty: 1 on 02/10/2022 by Vimal Woodruff MD at [facility] Stent N/A: Bile Duct [employer] Gina 11/04/2023 [id number] / / [id number] [employer] Connell Flexi-Stent 7fr 9cm Small Pigtail Flexible .035in Stent 6575 - [id number] Implanted:Qty: 1 on 09/21/2023 by Vimal Woodruff MD at [facility] Explanted:Qty: 1 on 09/23/2023 by Vimal Woodruff MD at [facility] Stent N/A: Pancreas [employer] 03/11/2028 [id number] / / [id number] Description:Not present at b eginning of case. Self migrated out [employer] Gina Wallflex 10mm X 60mm Fully Covered Biliary [id number] - [id number] Implanted:Qty: 1 on 09/21/2023 by Vimal Woodruff MD at [facility] Explanted:Qty: 1 on 09/23/2023 by Vimal Woodruff MD at [facility] Stent N/A: Bile Duct [employer] Gina 08/02/2025 [id number] / / [id number] Procedures Procedure Name Priority Date/Time Associated Diagnosis Comments TROPONIN T HIGH-SENSITIVITY 2-HOUR Timed 01/28/2025 4:[address] ABDOMEN PELVIS W CONTRAST ED 01/28/2025 4:30 PM CDT EGFR STAT 01/28/2025 2:38 PM CDT DIFFERENTIAL AUTO STAT 01/28/2025 2:3 8 PM CDT TROPONIN T HIGH-SENSITIVITY SERIES (BASELINE, 2HR, 4HR, 6HR) STAT 01/28/2025 2:38 PM CDT LIPASE STAT 01/28/2025 2:38 PM CDT COMPREHENSIVE METABOLIC PANEL STAT 01/28/2025 2:38 PM CDT CBC WITH AUTO DIFFERENTIAL STAT 01/28/2025 2:38 PM CDT URINALYSIS AND REFLEX TO MICROSCOPIC AND CULTURE STAT 01/28/2025 2:38 PM CDT TROPONIN T HIGH-SENSITIVITY 4-HR Timed 01/22/2025 9:04 [...] 5:21 AM CDT SCAN - RADIOLOGY/IMAGING 12/06/2024 [facility] ILL/INJURED PATIENT INIT 30-74 MIN [...] 3 Months Results * Troponin T high-sensitivity 2-hour (01/28/2025 4:34 PM CDT) Trop T hs <6 <=22 ng/L Comment: Interpretive Data For further hscTnT resources including the diagnostic algorithm and an aid in interpretation, copy and paste this link: https://nrl.testcatalog.org/show/hsTrop Current Interpretive Data last revised 2020. Testing performed by: [address] [address] Trop T hs delta -1 ng/L NEEL SMITH Comment:Testing performed by : [address] [address] Trop T hs interp Insignificant NEEL SMITH Comment:Testing performed by : [address] [address] Blood 01/28/2025 4:34 PM CDT 01/28/2025 4:41 PM CDT us Perez Hayes DO LAB BLOOD ORDERABLES Final Res ult NEEL SMITH [address] [facility] [place] [address] * CT Abdomen Pelvis W [...] signed by Jose Francisco Jesus M.D. KT: KT Report ID: [id number] Reading Location: [place] [address] Procedure Note Jose Francisco Jesus MD - [...] signed by Jose Francisco Jesus M.D. KT: KT Report ID: [id number] Reading Location: [place] [address] us Kelly LAWTON IMG CT PROCEDURES Renee l Result * Troponin T high-sensitivity series (baseline, 2hr, 4hr, 6hr) (01/28/2025 2:38 PM CDT) Trop T hs 7 <=22 ng/L Comment: Interpretive Data For further hscTnT resources including the diagnostic algorithm and an aid in interpretation, copy and paste this link: https://nrl.testcatalog.org/show/hsTrop Current Interpretive Data last revised 2020. Testing performed by: [facility], [address] [place] [address]., [address] Blood 01/28/2025 2:38 PM CDT 01/28/2025 2:42 PM CDT us Perez Hayes DO LAB BLOOD ORDERABLES Final Res ult NEEL [address] [facility] Department [place] [address] * eGFR (01/28/2025 2:38 PM CDT) eGFR >90 >=60 mL/min/1. 73 [...] was last reviewed 2021. Testing performed by: [address] [address] Blood 01/28/2025 2:38 PM CDT 01/28/2025 2:42 PM CDT us Perez Hayes DO LAB BLOOD ORDERABLES Final Res ult NEEL [address] [facility] Department [place] [address] * (ABNORMAL) Differential, auto (01/28/2025 2:38 PM CDT) Neutrophil abs 11.33(H) 1.50 - 6.50 K/cumm Comment:Testing performed by : [address] [address] Imm gran abs 0.05 0.00 - 0.10 K/cumm NEEL Comment:Testing performed by : [address] [address] Lymphocyte abs 0.97 0.80 - 3.30 K/cumm NEEL Comment:Testing performed by : [address] [address] Monocyte abs 0.76 0.20 - 0.80 K/cumm NEEL Comment:Testing performed by : [address] [address] Eosinophil abs 0.03 0.00 - 0.50 K/cumm NEEL Comment:Testing performed by : [address] [address] Basophil abs 0.04 0.00 - 0.10 K/cumm NEEL Comment:Testing performed by : [address] [address] Neutrophil pct 85.9 % [facility] Comment: Interpretive Data Percent cell count reference ranges are not reported, since discordance with absolute values may lead to misinterpretation of CBC data. Current Interpretive Data was last revised on 2017. Testing performed by: [address] [address] Imm gran pct 0.4 % [facility] Comment: Interpretive Data Percent cell count reference ranges are not reported, since discordance with absolute values may lead to misinterpretation of CBC data. Current Interpretive Data was last revised on 2017. Testing performed by: [address] [address] Lymphocyte pct 7.4 % [facility] Comment: Interpretive Data Percent cell count reference ranges are not reported, since discordance with absolute values may lead to misinterpretation of CBC data. Current Interpretive Data was last revised on 2017. Testing performed by: [address] [address] Monocyte pct 5.8 % [facility] Comment: Interpretive Data Percent cell count reference ranges are not reported, since discordance with absolute values may lead to misinterpretation of CBC data. Current Interpretive Data was last revised on 2017. Testing performed by: [address] [address] Eosinophil pct 0.2 % [facility] Comment: Interpretive Data Percent cell count reference ranges are not reported, since discordance with absolute values may lead to misinterpretation of CBC data. Current Interpretive Data was last revised on 2017. Testing performed by: [address] [address] Basophil pct 0.3 % [facility] Comment: Interpretive Data Percent cell count reference ranges are not reported, since discordance with absolute values may lead to misinterpretation of CBC data. Current Interpretive Data was last revised on 2017. Testing performed by: [address] [address] Blood 01/28/2025 2:38 PM CDT 01/28/2025 2:42 PM CDT us Perez Hayes DO LAB BLOOD ORDERABLES Final Res ult NEEL [address] [facility] Department [place] [address] * (ABNORMAL) Urinalysis reflex to microscopic and culture Urine (01/28/2025 2:38 PM CDT) Color, ur Yellow Yellow Comment:Testing performed by : [address] [address] Clarity, ur Cloudy(A) Clear NEEL Comment:Testing performed by : [address] [address] Specific gravity, ur 1.012 1.003 - 1.030 NEEL Comment:Testing performed by : [address] [address] pH, urine 8.0 NEEL Comment: Interpretive Data U rine pH is affected by diet, medications, systemic acid-base disturbances, and renal tubular function. pH may affect urinary stone formation. For example, urine pH below 6.0 may help reduce the tendency for calcium phosphate stones and pH greater than 6.0 may reduce the tendency for uric acid stone formation. Source: [facility] [employer] Current Interpretive Data was last revised on 2017 Testing performed by: [address] [address] Protein, ur ql Negative Negative NEEL Comment:Testing performed by : [address] [address] Glucose, ur ql Negative Negative NEEL Comment:Testing performed by : [address] [address] Ketones, ur Negative Negative NEEL SMITH Comment:Testing performed by : [address], [place]., [address] Bilirubin, ur Negative Negative NEEL SMITH Comment:Testing performed by : [address], [place]., [address] Blood, ur Negative Negative NEEL Comment:Testing performed by : [address], [place]., [address] Urobilinogen, ur <2.0 <2.0 mg/dL NEEL Comment:Testing performed by : [address], [place]., [address] Nitrite, ur Negative Negative NEEL Comment:Testing performed by : [address], [place]., [address] Leukocyte esterase, ur Negative Negative NEEL Comment:Testing performed by : [address], [place]., [address] UA reflex comment Reflex conditions for microscopic UA and culture not met. NEEL Comment:Testing performed by : [address], [place]., [address] Urine 01/28/2025 2:38 PM CDT 01/28/2025 2:42 PM CDT us Perez Hayes DO LAB MICROBIOLOGY - GENERAL ORD ERABLES Final Result NEEL [address] [facility] Department [place] [address] * (ABNORMAL) CBC with auto differential (01/28/2025 2:38 PM CDT) WBC 13.18(H) 3.80 - 9.90 K/cumm Comment:Testing performed by : [address] [address] Hgb 14.6 13.0 - 17.5 g/dL NEEL SMITH Comment:Testing performed by : [address] [address] Hct 43.5 38.9 - 50.3 % NEEL SMITH Comment:Testing performed by : [address], [place]., [address] Plt 258 150 - 400 K/cumm NEEL Comment:Testing performed by : [address] [address] MPV 10.0 9.1 - 12.3 fL NEEL Comment:Testing performed by : [address] [address] RBC 4.95 4.30 - 5.80 M/cumm NEEL Comment:Testing performed by : [address] [address] MCV 87.9 81.3 - 96.4 fL NEEL Comment:Testing performed by : [address] [address] MCH 29.5 27.1 - 33.3 pg NEEL Comment:Testing performed by : [address] [address] MCHC 33.6 32.3 - 35.7 g/dL NEEL Comment:Testing performed by : [address], [address] RDW CV 14.8 11.1 - 14.9 % NEEL Comment:Testing performed by : [address] [address] RDW SD 47.5 35.7 - 48.1 fL NEEL Comment:Testing performed by : [address] [address] NRBC abs 0.00 0.00 - 0.01 K/cumm NEEL Comment:Testing performed by : [address] [address] Blood Venous blood specimen / Unknown 01/28/2025 2:38 PM CDT 01/28/2025 2:42 PM CDT us Perez Hayes DO LAB BLOOD ORDERABLES Final Res ult NEEL [address] [facility] Department of Laboratories [place], [place] [id number] * Lipase (01/28/2025 2:38 PM CDT) Lipase 92 10 - 99 Units/L Comment:Testing performed by : [address] [address] Blood Venous blood specimen / Unknown 01/28/2025 2:38 PM CDT 01/28/2025 2:42 PM CDT Perez Hayes DO LAB BLOOD ORDERABLES Final Res ult [facility] [address] [facility] Department [place] [address] * Comprehensive metabolic panel (01/28/2025 2:38 PM CDT) Pathologist [facility] Sodium 142 135 - 145 mmol/L Comment:Testing performed by : [address] [address] Potassium, pl 4.0 3.3 - 4.9 mmol/L NEEL Comment:Testing performed by : [address] [address] Chloride 106 97 - 110 mmol/L NEEL Comment:Testing performed by : [address] [address] CO2 22 22 - 32 mmol/L NEEL Comment:Testing performed by : [address] [address] Anion gap 14 2 - 15 mmol/L NEEL Comment:Testing performed by : [address] [address] BUN 7 6 - 25 mg/dL NEEL Comment:Testing performed by : [address] [address] Creatinine 0.90 0.80 - 1.30 mg/dL NEEL Comment:Testing performed by : [address] [address] Glucose 136 70 - 199 mg/dL NEEL Comment: Interpretive [...] was last revised 2022. Testing performed by: [address] [address] Calcium 9.6 8.5 - 10.3 mg/dL NEEL Comment:Testing performed by : [address] [address] Bilirubin, total 0.5 0.1 - 1.2 mg/dL NEEL Comment:Testing performed by : [address] [address] Protein, pl 6.9 6.5 - 8.5 g/dL NEEL Comment:Testing performed by : [address] [address] Albumin 4.6 3.5 - 5.0 g/dL NEEL Comment:Testing performed by : [address] [address] Alk phos 87 40 - 130 Units/L NEEL Comment:Testing performed by : [address] [address] ALT 13 7 - 55 Units/L NEEL Comment:Testing performed by : [address] [address] AST 15 10 - 50 Units/L NEEL Comment:Testing performed by : [address] [address] Blood 01/28/2025 2:38 PM CDT 01/28/2025 2:42 PM CDT us Perez Hayes DO LAB BLOOD ORDERABLES Final Res ult NEEL [address] [facility] Department [place] [address] * Troponin T high-sensitivity 4-hour (01/22/2025 9:04 AM CDT) Trop T hs 7 <=22 ng/L Comment: Interpretive Data For further hscTnT resources including the diagnostic algorithm and an aid in interpretation, copy and paste this link: https://nrl.testcatalog.org/show/hsTrop Current Interpretive Data last revised 2020. 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 Denies fever, dysuria and diarrhea, pt states [...] by Calvin Morejon M.D. 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 Denies fever, dysuria and diarrhea, pt states [...] by Calvin Morejon M.D. T: Report ID: [id number] Reading Location: [place] [address] Freddy Yao DO IMG CT PROCEDURES Final Res ult * Troponin T high-sensitivity 2-hour (01/22/2025 7:02 AM CDT) Trop T hs <6 <=22 ng/L Comment: Interpretive Data For further hscTnT resources including the diagnostic algorithm and an aid in interpretation, copy and paste this link: https://nrl.testcatalog.org/show/hsTrop Current Interpretive Data last revised 2020. Trop T hs delta 0 ng/L [facility] Trop T hs interp Insignificant [facility] Blood 01/22/2025 7:02 AM CDT 01/22/2025 7:04 AM CDT Freddy Bell MD LAB BLOOD ORDERABLES Final Result Performing Organization Address [facility] Co de Phone Number [address] [address] * Sepsis Lactate w/ Reflex (01/22/2025 7:02 AM CDT) Pathologist [facility] Sepsis Lactate 1.1 0.7 - 2.0 mmol/L Blood 01/22/2025 7:02 AM CDT 01/22/2025 7:04 AM CDT Freddy Yao DO LAB BLOOD ORDERABLES Final Result Performing Organization Address [facility] [address] [facility] de Phone Number [address] [address] * ECG 12 lead (01/22/2025 5:23 AM CDT) Pathologist [facility] Ventricular Rate EKG/Min 79 BPM [facility] Atrial Rate 79 BPM [facility] LA-Interval (MSEC) 116 ms [facility] QRS-Interval (MSEC) 104 ms [facility] QT-Interval (MSEC) 374 ms [facility] QTc 428 ms [facility] P [place] 65 degrees [facility] R [place] 62 degrees [facility] T [place] 66 degrees [facility] Diagnosis Normal sinus rhythm with sinus arrhythmia Incomplete right bundle branch block ST-changes When compared with ECG of 25-NOV-2024 23:02, Significant changes have occurred Confirmed by SULTAN DE JESUS M.D. ([id number]) on 01/22/2025 8:44:23 AM [facility] 01/22/2025 5:23 AM CDT 01/22/2025 8:44 AM CDT Freddy Cedric Abbeg DO ECG ORDERABLES Final Resul t [facility] * Troponin T high-sensitivity series (baseline, 2hr, 4hr, 6hr) (01/22/2025 5:21 AM CDT) Trop T hs 6 <=22 ng/L Comment: Interpretive Data For further hscTnT resources including the diagnostic algorithm and an aid in interpretation, copy and paste this link: https://nrl.testcatalog.org/show/hsTrop Current Interpretive Data last revised 2020. Blood 01/22/2025 5:21 AM CDT 01/22/2025 5:25 AM CDT Freddy Yao DO LAB BLOOD ORDERABLES Final Result [facility] Department [place] [address] * eGFR (01/22/2025 5:21 AM CDT) eGFR 84 >=60 mL/min/1. 73 m2 Comment: [...] 5:21 AM CDT 01/22/2025 5:25 AM CDT us Freddy Yao DO LAB BLOOD ORDERABLES Final Result NEEL [address] [facility] Department [place] [address] * (ABNORMAL) Differential, auto (01/22/2025 5:21 AM CDT) Neutrophil abs 15.14(H) 1.50 - 6.50 K/cumm Imm gran abs 0.11(H) 0.00 - 0.10 K/cumm [facility] Lymphocyte abs 2.97 0.80 - 3.30 K/cumm [facility] Monocyte abs 1.83(H) 0.20 - 0.80 K/cumm [facility] Eosinophil abs 0.17 0.00 - 0.50 K/cumm [facility] Basophil abs 0.10 0.00 - 0.10 K/cumm [facility] Neutrophil pct 74.6 % [facility] Comment: Interpretive Data Percent cell count reference ranges are not reported, since discordance with absolute values may lead to misinterpretation of CBC data. Current Interpretive Data was last revised on 2017. Imm gran pct 0.5 % [facility] Comment: Interpretive Data Percent cell count reference ranges are not reported, since discordance with absolute values may lead to misinterpretation of CBC data. Current Interpretive Data was last revised on 2017. Lymphocyte pct 14.6 % [facility] Comment: Interpretive Data Percent cell count reference ranges are not reported, since discordance with absolute values may lead to misinterpretation of CBC data. Current Interpretive Data was last revised on 2017. Monocyte pct 9.0 % [facility] Comment: Interpretive Data Percent cell count reference ranges are not reported, since discordance with absolute values may lead to misinterpretation of CBC data. Current Interpretive Data was last revised on 2017. Eosinophil pct 0.8 % [facility] Comment: Interpretive Data Percent cell count reference ranges are not reported, since discordance with absolute values may lead to misinterpretation of CBC data. Current Interpretive Data was last revised on 2017. Basophil pct 0.5 % [facility] Comment: Interpretive Data Percent cell count reference ranges are not reported, since discordance with absolute values may lead to misinterpretation of CBC data. Current Interpretive Data was last revised on 2017. Blood 01/22/2025 5:21 AM CDT 01/22/2025 5:25 AM CDT Freddy Yao DO LAB BLOOD ORDERABLES Final Result Performing Organization Address [facility] de Phone Number [address] [place] [employer] [address] * (ABNORMAL) Urinalysis reflex to microscopic and culture Urine (01/22/2025 5:21 AM CDT) Color, ur Yellow Yellow Clarity, ur Cloudy(A) Clear [facility] Specific gravity, ur 1.021 1.003 - 1.030 [facility] pH, urine 6.5 [facility] Comment: Interpretive Data U rine pH is affected by diet, medications, systemic acid-base disturbances, and renal tubular function. pH may affect urinary stone formation. For example, urine pH below 6.0 may help reduce the tendency for calcium phosphate stones and pH greater than 6.0 may reduce the tendency for uric acid stone formation. Source: [facility] Current Interpretive Data was last revised on 2017 Protein, ur ql Negative Negative [facility] Glucose, ur ql Negative Negative [facility] Ketones, ur Negative Negative [facility] Bilirubin, ur Negative Negative [facility] Blood, ur Negative Negative [facility] Urobilinogen, ur 2.0(A) <2.0 mg/dL [facility] Nitrite, ur Negative Negative [facility] Leukocyte esterase, ur Negative Negative [facility] UA reflex comment Reflex conditions for microscopic UA and culture not met. [facility] Urine 01/22/2025 5:21 AM CDT 01/22/2025 5:25 AM CDT Freddy Yao DO LAB MICROBIOLOGY - GENERAL ORDERABLES Final Result Performing Organization Address [facility] Co de Phone Number [facility] [address] [facility] [place] [address] * (ABNORMAL) CBC with auto differential (01/22/2025 5:21 AM CDT) [facility] WBC 20.32(H) 3.80 - 9.90 K/cumm Hgb 15.4 13.0 - 17.5 g/dL [facility] Hct 46.5 38.9 - 50.3 % [facility] Plt 300 150 - 400 K/cumm [facility] MPV 9.8 9.1 - 12.3 fL [facility] RBC 5.28 4.30 - 5.80 M/cumm [facility] MCV 88.1 81.3 - 96.4 fL [facility] MCH 29.2 27.1 - 33.3 pg [facility] MCHC 33.1 32.3 - 35.7 g/dL [facility] RDW CV 14.8 11.1 - 14.9 % [facility] RDW SD 47.6 35.7 - 48.1 fL [facility] NRBC abs 0.00 0.00 - 0.01 K/cumm [facility] Blood Venous blood specimen / Unknown 01/22/2025 5:21 AM CDT 01/22/2025 5:25 AM CDT Freddy Yao DO LAB BLOOD ORDERABLES Final Result [facility] [address] [facility] [place] [address] * (ABNORMAL) Drugs of Abuse Screen, Urine without Confirmation (01/22/2025 5:21 AM CDT) [facility] Amphetamine, ur Not Detected CutOff 500ng/mL Comment: Interpretive Data - Amphetamines: Samples containing greater than 500 ng/mL d-methamphetamine or other cross-reacting amphetamine compounds are reported as positive. Amphetamine immunoassays are subject to significant false positive rates due to cross-reactivity of non-amphetamine drugs. Confirmatory testing required for definitive results. Current Interpretive Data was last reviewed 2022. Barbiturates, ur Not Detected CutOff 200ng/mL [facility] Comment: Interpretive Data - Barbiturates: Samples containing greater than 200 ng/mL secobarbital or other cross-reacting barbiturate compounds are reported as positive. False positive and false negative results are possible. Confirmatory testing required for definitive results. Current Interpretive Data was last reviewed 2022. Benzodiazepines, ur Not Detected CutOff 100ng/mL [facility] Comment: Interpretive Data - Benzodiazepines: Samples containing greater than 100 ng/mL nordiazepam or other cross-reacting compounds are reported as positive. False positive and false negative results are possible. Confirmatory testing required for definitive results. Current Interpretive Data was last reviewed 2022. Cannabinoids, ur Screen Positive, presumptive (A) CutOff 50 ng/mL [facility] Comment: Interpretive Data - Cannabinoids: Samples containing greater than 50 ng/mL delta-9 THC -COOH or other cross- reacting compounds are reported as positive. False positive and false negative results are possible. Confirmatory testing required for definitive results. Current Interpretive Data was last reviewed 2022. Cocaine, ur Not Detected CutOff 150ng/mL [facility] Comment: Interpretive Data - Cocaine: Samples containing greater than 150 ng/mL benzoylecgonine or other cross- reacting compounds are reported as positive. False positive and false negative results are possible. Confirmatory testing required for definitive results. Current Interpretive Data was last reviewed 2022. Fentanyl, Ur Not Detected CutOff 5 ng/mL [facility] Comment: Interpretive Data - Fentanyl: Samples containing greater than 5 ng/mL norfentanyl, fentanyl, or other cross-reacting fentanyl compounds are reported as positive. False positive and false negative results are possible. Confirmatory testing required for definitive results. Current Interpretive Data was last reviewed 2023. Methadone, ur Not Detected CutOff 300ng/mL [facility] Comment: Interpretive Data - Methadone: Samples containing greater than 300 ng/mL d,l-methadone or other cross-reacting compounds are reported as positive. False positive and false negative results are possible. Confirmatory testing required for definitive results. Current Interpretive Data was last reviewed 2022. Opiates, ur Not Detected CutOff 300ng/mL [facility] Comment: Interpretive Data - Opiates: Samples [...] AM CDT 01/22/2025 5:25 AM CDT Narrative NEEL - 01/22/2025 5:54 AM CDT Drug of Abuse screening is performed by immunoassay for medical purposes only. This is not to be used for Pain Management purposes. Freddy Yao DO MEDICINE [facility] URINE ORDERABLES Final Result Performing Organization Address [facility] Co de Phone Number [place] [phone] [facility] [place] [address] * Lipase (01/22/2025 5:21 AM CDT) Lipase 60 10 - 99 Units/L Blood Venous blood specimen / Unknown 01/22/2025 5:21 AM CDT 01/22/2025 5:25 AM CDT Freddy Yao LAB BLOOD ORDERABLES Final Result Performing Organization Address [facility] Co de Phone Number [place] [phone] [facility] [place] [address] * Comprehensive metabolic panel (01/22/2025 5:21 AM CDT) Sodium 143 135 - 145 mmol/L Potassium, pl 3.7 3.3 - 4.9 mmol/L [facility] Chloride 103 97 - 110 mmol/L [facility] CO2 26 22 - 32 mmol/L [facility] Anion gap 14 2 - 15 mmol/L [facility] BUN 8 6 - 25 mg/dL [facility] Creatinine 1.11 0.80 - 1.30 mg/dL [facility] Glucose 140 70 - 199 mg/dL [facility] Comment: Interpretive Data Fasting glucose >/= [...] 2022. Calcium 9.9 8.5 - 10.3 mg/dL [facility] Bilirubin, total 0.5 0.1 - 1.2 mg/dL [facility] Protein, pl 7.2 6.5 - 8.5 g/dL [facility] Albumin 4.6 3.5 - 5.0 g/dL [facility] Alk phos 90 40 - 130 Units/L [facility] ALT 16 7 - 55 Units/L [facility] AST 21 10 - 50 Units/L [facility] Blood 01/22/2025 5:21 AM CDT 01/22/2025 5:25 AM CDT us Freddy Yao DO LAB BLOOD ORDERABLES Final Result [facility] [address] [facility] Department of Laboratories [place], [place] [id number] * SCAN - RADIOLOGY/IMAGING (12/06/2024) Anatomical Region Laterality Modality Other us Provider Scanning Final Result * [facility] ILL/INJURED PATIENT INIT 30-74 MIN [...] medical record. us Pran[facility] Fernandez [facility] Final Result * CT Abdomen [...] ORDERABLES Final R esult [facility] [address] [place] [address] * (ABNORMAL) Differential, auto (12/01/2024 1:49 AM CDT) Neutrophil abs 8.27(H) 1.50 - 6.50 K/cumm Imm gran abs 0.04 0.00 - 0.10 K/cumm [facility] Lymphocyte abs 1.58 0.80 - 3.30 K/cumm [facility] Monocyte abs 0.97(H) 0.20 - 0.80 K/cumm [facility] Eosinophil abs 0.03 0.00 - 0.50 K/cumm [facility] Basophil abs 0.05 0.00 - 0.10 K/cumm [facility] Neutrophil pct 75.5 % [facility] Comment: Interpretive Data Percent cell count reference ranges are not reported, since discordance with absolute values may lead to misinterpretation of CBC data. Current Interpretive Data was last revised on 2017. Imm gran pct 0.4 % [facility] Comment: Interpretive Data Percent cell count reference ranges are not reported, since discordance with absolute values may lead to misinterpretation of CBC data. Current Interpretive Data was last revised on 2017. Lymphocyte pct 14.4 % [facility] Comment: Interpretive Data Percent cell count reference ranges are not reported, since discordance with absolute values may lead to misinterpretation of CBC data. Current Interpretive Data was last revised on 2017. Monocyte pct 8.9 % [facility] Comment: Interpretive Data Percent cell count reference ranges are not reported, since discordance with absolute values may lead to misinterpretation of CBC data. Current Interpretive Data was last revised on 2017. Eosinophil pct 0.3 % [facility] Comment: Interpretive Data Percent cell count reference ranges are not reported, since discordance with absolute values may lead to misinterpretation of CBC data. Current Interpretive Data was last revised on 2017. Basophil pct 0.5 % [facility] Comment: Interpretive Data Percent cell count reference ranges are not reported, since discordance with absolute values may lead to misinterpretation of CBC data. Current Interpretive Data was last revised on 2017. Blood 12/01/2024 1:49 AM CDT 12/01/2024 2:08 AM CDT us Domenic Arias MD LAB BLOOD ORDERABLES Final R esult [facility] [address] [place] [address] * (ABNORMAL) CBC with auto differential (12/01/2024 1:49 AM CDT) WBC 10.94(H) 3.80 - 9.90 K/cumm Hgb 13.5 13.0 - 17.5 g/dL [facility] Hct 40.4 38.9 - 50.3 % [facility] Plt 242 150 - 400 K/cumm [facility] MPV 10.5 9.1 - 12.3 fL [facility] RBC 4.59 4.30 - 5.80 M/cumm [facility] MCV 88.0 81.3 - 96.4 fL [facility] MCH 29.4 27.1 - 33.3 pg [facility] MCHC 33.4 32.3 - 35.7 g/dL [facility] RDW CV 15.7(H) 11.1 - 14.9 % [facility] RDW SD 50.5(H) 35.7 - 48.1 fL [facility] NRBC abs 0.00 0.00 - 0.01 K/cumm [facility] Blood 12/01/2024 1:49 AM CDT 12/01/2024 2:08 AM CDT Domenic Arias MD LAB BLOOD ORDERABLES Final R esult Performing Organization Address City/[facility] Co de Phone Number [facility] [address] [place] [employer] [place] [address] * Lipase (12/01/2024 1:49 AM CDT) [facility] Lipase 23 10 - 99 Units/L Blood 12/01/2024 1:49 AM CDT 12/01/2024 2:08 AM CDT Domenic Arias MD LAB BLOOD ORDERABLES Final R esult Performing Organization Address [facility] de Phone Number [facility] [address] [place] [place] [address] * (ABNORMAL) Comprehensive metabolic panel (12/01/2024 1:49 AM CDT) [facility] Sodium 142 135 - 145 mmol/L Potassium, pl 4.2 3.3 - 4.9 mmol/L [facility] Chloride 106 97 - 110 mmol/L [facility] CO2 23 22 - 32 mmol/L [facility] Anion gap 13 2 - 15 mmol/L [facility] BUN 6 6 - 25 mg/dL [facility] Creatinine 0.86 0.80 - 1.30 mg/dL [facility] Glucose 99 70 - 199 mg/dL [facility] Comment: Interpretive Data Fasting glucose >/= 126 [...] 8.5 - 10.3 mg/dL [facility] Bilirubin, total 0.6 0.1 - 1.2 mg/dL [facility] Protein, pl 6.2(L) 6.5 - 8.5 g/dL [facility] Albumin 4.0 3.5 - 5.0 g/dL [facility] Alk phos 76 40 - 130 Units/L [facility] ALT 17 7 - 55 Units/L [facility] AST 20 10 - 50 Units/L [facility] Blood 12/01/2024 1:49 AM CDT 12/01/2024 2:08 AM CDT Domenic Arias MD LAB BLOOD ORDERABLES Final R esult Performing Organization Address City/[facility] [address]/ZIP Co de Phone Number [facility] [address] [place] [address] * ECG 12 lead (11/30/2024 10:57 PM CDT) 11/30/2024 10:5 7 PM CDT Narrative [facility] - 12/01/2024 7:47 AM CDT Vent Rate: 64 bpm RR Interval: 926 msec LA Interval: 91 msec QRS Duration: 104 msec QT Interval: 382 msec QTC Interval: 392 msec P-R-T [place]: 12 - 72 - 72 degrees IMPRESSION: SINUS RHYTHM WITH SINUS ARRHYTHMIA WITH SHORT LA INTERVAL INCOMPLETE RIGHT BUNDLE BRANCH BLOCK BORDERLINE ECG Electronically Signed By: Mich Quintana MD PhD us Domenic Arias MD ECG ORDERABLES Final Result Performing Organization Address [facility] [address]/ZIP Co de Phone Number [facility] [employer] [facility] * CT Abdomen Pelvis W [...] clear. Heart size normal. No effusion. LIVER/BILIARY: [id number]-im-[id number] steatosis. Unchanged pneumobilia. GALLBLADDER: Absent. SPLEEN: Normal. [...] Aryan Jovel M.D. AR: GIOVANNA Report ID: [id number] Reading Location: [id number] Procedure Note Aryan Jovel MD - 11/26/2024 [...] clear. Heart size normal. No effusion. LIVER/BILIARY: Jcgl-[id number]-[id number] steatosis. Unchanged pneumobilia. GALLBLADDER: Absent. SPLEEN: Normal. [...] Aryan Jovel M.D. AR: GIOVANNA Report ID: [id number] Reading Location: [place] [address] [facility] IM CT PROCEDURES F inal Result * Troponin T high-sensitivity 2-hour (11/26/2024 1:13 AM CDT) Trop T hs 8 <=22 ng/L Comment: Interpretive Data For further hscTnT resources including the diagnostic algorithm and an aid in interpretation, copy and paste this link: https://nrl.testcatalog.org/show/hsTrop Current Interpretive Data last revised 2020. Testing performed by: [address] [address] Trop T hs delta -3 ng/L NEEL SMITH Comment:Testing performed by : [address] [address] Trop T hs interp Insignificant NEEL SMITH Comment:Testing performed by : [address] [address] Blood 11/26/2024 1:13 AM CDT 11/26/2024 1:25 AM CDT us Blue Warren MD LAB BLOOD ORDERABLE S Final Result NEEL SMITH [address] [facility] Department [place] [address] * Urinalysis reflex to microscopic and culture Urine (11/25/2024 11:13 PM CDT) Color, ur Yellow Yellow Comment:Testing performed by : [address] [address] Clarity, ur Clear Clear NEEL SMITH Comment:Testing performed by : [address] [address] Specific gravity, ur 1.020 1.003 - 1.030 NEEL SMITH Comment:Testing performed by : [address] [address] pH, urine 6.0 NEEL Comment: Interpretive Data U rine pH is affected by diet, medications, systemic acid-base disturbances, and renal tubular function. pH may affect urinary stone formation. For example, urine pH below 6.0 may help reduce the tendency for calcium phosphate stones and pH greater than 6.0 may reduce the tendency for uric acid stone formation. Source: [facility] [employer] Current Interpretive Data was last revised on 2017 Testing performed by: [address] [address] Protein, ur ql Negative Negative NEEL SMITH Comment:Testing performed by : [address] [address] Glucose, ur ql Negative Negative NEEL SMITH Comment:Testing performed by : [address] [address] Ketones, ur Negative Negative NEEL SMITH Comment:Testing performed by : [address] [address] Bilirubin, ur Negative Negative NEEL SMITH Comment:Testing performed by : [address] [address] Blood, ur Negative Negative NEEL SMITH Comment:Testing performed by : [address] [address] Urobilinogen, ur <2.0 <2.0 mg/dL NEEL SMITH Comment:Testing performed by : [facility], [address] [place] [address]., [address] Nitrite, ur Negative Negative NEEL Comment:Testing performed by : [address] [address] Leukocyte esterase, ur Negative Negative NEEL Comment:Testing performed by : [address] [address] UA reflex comment Reflex conditions for microscopic UA and culture not met. NEEL SMITH Comment:Testing performed by : [address] [address] Urine 11/25/2024 11:1 3 PM CDT 11/25/2024 11:24 PM CDT us Blue Warren MD LAB MICROBIOLOGY - GENERAL ORDERABLES Final Result Performing Organization Address City/[facility] Co de Phone Number NEEL [address] [place] [address] * Troponin T high-sensitivity series (baseline, 2hr, 4hr, 6hr) (11/25/2024 11:06 PM CDT) Trop T hs 11 <=22 ng/L Comment: Interpretive Data For further hscTnT resources including the diagnostic algorithm and an aid in interpretation, copy and paste this link: https://nrl.testcatalog.org/show/hsTrop Current Interpretive Data last revised 2020. Testing performed by: [address] [address] Blood 11/25/2024 11:0 6 PM CDT 11/25/2024 11:24 PM CDT Blue Warren MD LAB BLOOD ORDERABLE S Final Result Performing Organization Address City/[facility] Co de Phone Number [address] [place] [address] * eGFR (11/25/2024 11:06 PM CDT) eGFR [...] was last reviewed 2021. Testing performed by: [address] [address] Blood 11/25/2024 11:0 6 PM CDT 11/25/2024 11:24 PM CDT us Blue Warren MD LAB BLOOD ORDERABLE S Final Result [facility] [address] [facility] Department [place] [address] * (ABNORMAL) Differential, auto (11/25/2024 11:06 PM CDT) Pathologist [facility] Neutrophil abs 13.59(H) 1.50 - 6.50 K/cumm Comment:Testing performed by : [address] [address] Imm gran abs 0.11(H) 0.00 - 0.10 K/cumm NEEL SMITH Comment:Testing performed by : [address] [address] Lymphocyte abs 1.24 0.80 - 3.30 K/cumm [facility] Comment:Testing performed by : [address], [place]., [address] Monocyte abs 0.90(H) 0.20 - 0.80 K/cumm [facility] Comment:Testing performed by : [address], [place]., [address] Eosinophil abs 0.02 0.00 - 0.50 K/cumm [facility] Comment:Testing performed by : [address], [place]., [address] Basophil abs 0.05 0.00 - 0.10 K/cumm [facility] Comment:Testing performed by : [address] [address] Neutrophil pct 85.4 % [facility] Comment: Interpretive Data Percent cell count reference ranges are not reported, since discordance with absolute values may lead to misinterpretation of CBC data. Current Interpretive Data was last revised on 2017. Testing performed by: [address] [address] Imm gran pct 0.7 % [facility] Comment: Interpretive Data Percent cell count reference ranges are not reported, since discordance with absolute values may lead to misinterpretation of CBC data. Current Interpretive Data was last revised on 2017. Testing performed by: [address] [address] Lymphocyte pct 7.8 % [facility] Comment: Interpretive Data Percent cell count reference ranges are not reported, since discordance with absolute values may lead to misinterpretation of CBC data. Current Interpretive Data was last revised on 2017. Testing performed by: [address] [address] Monocyte pct 5.7 % [facility] Comment: Interpretive Data Percent cell count reference ranges are not reported, since discordance with absolute values may lead to misinterpretation of CBC data. Current Interpretive Data was last revised on 2017. Testing performed by: [address] [address] Eosinophil pct 0.1 % [facility] Comment: Interpretive Data Percent cell count reference ranges are not reported, since discordance with absolute values may lead to misinterpretation of CBC data. Current Interpretive Data was last revised on 2017. Testing performed by: [address] [address] Basophil pct 0.3 % NEEL SMITH Comment: Interpretive Data Percent cell count reference ranges are not reported, since discordance with absolute values may lead to misinterpretation of CBC data. Current Interpretive Data was last revised on 2017. Testing performed by: [address] [address] Blood 11/25/2024 11:0 6 PM CDT 11/25/2024 11:24 PM CDT us Blue Warren MD LAB BLOOD ORDERABLE S Final Result [facility] [address] [facility] [place] [address] * (ABNORMAL) CBC with auto differential (11/25/2024 11:06 PM CDT) WBC 15.91(H) 3.80 - 9.90 K/cumm Comment:Testing performed by : [address] [address] Hgb 15.1 13.0 - 17.5 g/dL NEEL SMITH Comment:Testing performed by : [address] [address] Hct 44.2 38.9 - 50.3 % NEEL SMITH Comment:Testing performed by : [address] [address] Plt 300 150 - 400 K/cumm NEEL SMITH Comment:Testing performed by : [address] [address] MPV 9.7 9.1 - 12.3 fL NEEL SMITH Comment:Testing performed by : [address] [address] RBC 5.26 4.30 - 5.80 M/cumm NEEL SMITH Comment:Testing performed by : [address] [address] MCV 84.0 81.3 - 96.4 fL NEEL SMITH Comment:Testing performed by : [address] [address] MCH 28.7 27.1 - 33.3 pg NEEL SMITH Comment:Testing performed by : [address] [address] MCHC 34.2 32.3 - 35.7 g/dL NEEL SMITH Comment:Testing performed by : [address], [address] RDW CV 15.2(H) 11.1 - 14.9 % NEEL Comment:Testing performed by : [address], [address] RDW SD 46.3 35.7 - 48.1 fL NEEL SMITH Comment:Testing performed by : [address], [address] NRBC abs 0.00 0.00 - 0.01 K/cumm NEEL Comment:Testing performed by : [address], [address] Blood Venous blood specimen / Unknown 11/25/2024 11:06 PM CDT 11/25/2024 11:24 PM CDT us Blue Warren MD LAB BLOOD ORDERABLE S Final Result NEEL [facility] Department of Laboratories [place], [place] [id number] * Lipase (11/25/2024 11:06 PM CDT) Lipase 24 10 - 99 Units/L Comment:Testing performed by : [address] [address] Blood Venous blood specimen / Unknown 11/25/2024 11:06 PM CDT 11/25/2024 11:24 PM CDT Blue Warren MD LAB BLOOD ORDERABLE S Final Result NEEL [address] [facility] [place] [address] * (ABNORMAL) Comprehensive metabolic panel (11/25/2024 11:06 PM CDT) Sodium 140 135 - 145 mmol/L Comment:Testing performed by : [address] [address] Potassium, pl 4.1 3.3 - 4.9 mmol/L NEEL Comment:Testing performed by : [address] [address] Chloride 102 97 - 110 mmol/L NEEL Comment:Testing performed by : [address] [address] CO2 24 22 - 32 mmol/L NEEL Comment:Testing performed by : [address] [address] Anion gap 14 2 - 15 mmol/L NEEL Comment:Testing performed by : [address] [address] BUN 10 6 - 25 mg/dL NEEL Comment:Testing performed by : [address] [address] Creatinine 1.01 0.80 - 1.30 mg/dL NEEL Comment:Testing performed by : [address] [address] Glucose 115 70 - 199 mg/dL NEEL [...] was last revised 2022. Testing performed by: [address] [address] Calcium 10.5(H) 8.5 - 10.3 mg/dL NEEL Comment:Testing performed by : [address] [address] Bilirubin, total 0.4 0.1 - 1.2 mg/dL NEEL Comment:Testing performed by : [address] [address] Protein, pl 7.4 6.5 - 8.5 g/dL NEEL Comment:Testing performed by : [address], [address] Albumin 4.5 3.5 - 5.0 g/dL NEEL Comment:Testing performed by : [address], [address] Alk phos 89 40 - 130 Units/L NEEL Comment:Testing performed by : [address] [address] ALT 19 7 - 55 Units/L NEEL Comment:Testing performed by : [address] [address] AST 21 10 - 50 Units/L NEEL Comment:Testing performed by : [address] [address] Blood 11/25/2024 11:0 6 PM CDT 11/25/2024 11:24 PM CDT us Blue Warren MD LAB BLOOD ORDERABLE S Final Result NEEL [address] [facility] [place] [address] * ECG 12 lead (11/25/2024 11:02 PM CDT) Ventricular Rate EKG/Min 74 BPM [facility] Atrial Rate 74 BPM [facility] LA-Interval (MSEC) 80 ms [facility] QRS-Interval (MSEC) 96 ms [facility] QT-Interval (MSEC) 354 ms [facility] QTc 392 ms [facility] P [place] -18 degrees [facility] R [place] 32 degrees [facility] T [place] 56 degrees [facility] Diagnosis Sinus rhythm with sinus arrhythmia with short LA Otherwise normal ECG When compared with ECG of 13-OCT-2024 03:54, No significant change was found Confirmed by DARIEL CARLOS M.D. ([id number]) on 11/26/2024 10:02:21 PM [facility] 11/25/2024 11:0 2 PM CDT 11/26/2024 10:02 PM CDT us Blue Warren MD ECG ORDERABLES Fin al Result [facility] from Last 3 Months Insurance [facility] IDPA Advance Directives For more information, please contact: [phone] * Full Code (Latest Code Status on [...] 12:50 PM 11/16/2023 7:54 PM Care Teams Financial Associate Relationship Specialty Start Date End Date Td Lopez MD [address] [address] PCP - General Family Medicine 11/09/20 Angie Woodard MD [address] [facility] [address] [place] [address] Consulting Physician Gastroenterology 07/17/21 Vimal Woodruff MD [address] [facility] [address] [place] [address] Consulting Physician Gastroenterology 02/10/22
--- OUTSIDE RECORDS SUMMARY | 2025-01-29 14:35 | XMS_ITS | Encounter Summary ---
Author Organization [facility] Healthcare Address [address] [place] [address] Care Team Providers Care Cafeteria Cashier Name Role Phone Td Lopez MD Primary Care Provider + Angie Woodard MD Unavailable [phone] Vimal Woodruff MD Unavailable PastorAlannah MA Unavailable [phone] PastorAlannah fair MA Unavailable [phone] PastorAlannah fair MA Unavailable [phone] Eun Arana RN Unavailable Lakshmi Garcia LPN Unavailable [phone] Niki Burns MA Unavailable Encounter Details Date Type Department Care Team (Late st Contact Info) Description 12/21/2017 Documentation [id number] [place] [id number] Shannan Farfan, JOHN Social History Tobacco Use Types Packs/Day Years Used Date Smoking Tobacco: Every Day Sex and Gender Information Value Date Recorded Sex Assigned at Not on file Legal Sex Male 3:38 AM FLAT SORTER PROCESSOR Gender Identity Not on file Sexual Orientation [...] COVID: Suspected 06/27/2021 06/27/2021 06/27/2021 12:53 PM FLAT SORTER PROCESSOR COVID19 06/27/2021 06/27/2021 07/08/2021 3:05 AM FLAT SORTER PROCESSOR COVID: Recovered Comment:Added based on recent COVID infection. 07/08/2021 07/14/2021 11/05/2021 3:05 AM C DT COVID: Suspected 05/20/2022 05/20/2022 05/20/2022 2:32 AM FLAT SORTER PROCESSOR COVID: Suspected 09/20/2023 09/20/2023 09/20/2023 9:26 PM CDT COVID: Suspected 10/04/2023 10/04/2023 10/04/2023 3:55 PM CDT documented as of this encounter Care Teams Cafeteria Cashier Relationship Specialty Start Date End Date Td Lopez MD [facility] [address] [address] PCP - General Family Medicine 11/09/20 Angie Woodard MD [address] [facility] [address] [place] [address] Consulting Physician Gastroenterology 07/17/21 Vimal Woodruff MD [address] [facility] [address] [place] [address] Consulting Physician Gastroenterology 02/10/22 Alannah Baumann MA [address] [place] [address] ACO Care Fire Inspector 12/31/23 01/05/24 Alannah Baumann MA [address] [place] [address] ACO Care Fire Inspector 06/29/24 06/30/24 Alannah Baumann MA [address] [place] [address] [address] [place] [address] ACO Care Fire Inspector 08/03/24 08/03/24 Eun Arana RN [address] [place] [address] [address] [place] [address] Pusher Runner 08/17/24 08/25/24 Lakshmi Garcia LPN [address] [place] [address] [address] [place] [address] Pusher Runner 10/05/24 10/05/24 Niki Burns MA [address] [place] [address] [address] [place] [address] ACO Care Fire Inspector 10/18/24 10/19/24 documented as of this encounter
--- OUTSIDE RECORDS SUMMARY | 2025-01-29 14:35 | XMS_ITS | Clinical Summary ---
Author Organization [facility] Address [address] [facility] [place] [address] Care Team Providers Care Burglary Investigator Name Role Phone Alee Zhao MD Primary Care Provider [phone] Source Comments [facility],non-owned Affiliates and Associated Physician Practices is amultiple site organization consisting of ambulatory clinics and hospital sitesin [place], [place], [place] and [place]. This disclosure is being madepursuant to the Care Everywhere program and may not contain all information available regarding this patient. Last updated 18.[facility] Allergies Active Allergy Reactions Criticality Noted Date [...] on file Legal Sex Male 7:46 PM GROCERY CLERK SELLING Gender Identity Not on file Sexual Orientation Not on file Last Filed Vital Signs Vital Sign Reading Time Taken Comments Blood Pressure 120/71 03/17/2019 5:03 PM GROCERY CLERK SELLING Pulse 75 03/17/2019 5:03 PM GROCERY CLERK SELLING Temperature 36.9 C (98.4 F) 03/17/2019 2:00 PM GROCERY CLERK SELLING Respiratory Rate 17 03/17/2019 5:03 PM GROCERY CLERK SELLING Oxygen Saturation 99% 03/17/2019 5:03 PM GROCERY CLERK SELLING Inhaled Oxygen Concentration - - Weight 77.1 kg (170 lb) 03/17/2019 2:00 PM GROCERY CLERK SELLING Height 177.8 cm (5' 10) 03/17/2019 2:00 PM GROCERY CLERK SELLING Body Mass Index 24.39 03/17/2019 2:00 PM GROCERY CLERK SELLING Plan of Treatment Health Maintenance Due Date [...] RFLX NAAT QUANT STAT 03/27/2018 9:12 PM GROCERY CLERK SELLING HIV-1 HIV-2 ANTIGEN/ANTIBODY STAT 03/27/2018 9:12 PM GROCERY CLERK SELLING from Last 3 Months or Most Recently Relevant to Health Maintenance Results * HIV-1 HIV-2 ANTIGEN/ANTIBODY (03/27/2018 9:12 PM GROCERY CLERK SELLING) HIV Antigen/Antibod y 1 & 2 Non-reacti ve Non-react nemesio 03/27/2018 10:17 PM GROCERY CLERK SELLING [facility] Comment: Neither HIV-1 p24 Antigen nor HIV-1/HIV-2 Antibodies are detected. Blood BLOOD SPECIMEN / Unknown Venipuncture / Unknown 03/27/2018 9:12 PM GROCERY CLERK SELLING 03/27/2018 9:21 PM GROCERY CLERK SELLING us Davi Patrick MD LAB - HEMATOLOGY ORDERABLES Fi nal Result Performing Organization Address [facility] Co de Phone Number [address] [phone] * HEPATITIS C AB SCREEN RFLX NAAT QUANT (03/27/2018 9:12 PM GROCERY CLERK SELLING) Hepatitis C Antibody Non-react nemesio Non-reac tive 03/27/2018 10:20 PM GROCERY CLERK SELLING [facility] Comment: Hepatitis C Antibody screen indicates no serologic evidence of past or current infection with Hepatitis C Virus. Patients with unexplained liver disease who are immunocompromised or suspected of having acute Hepatitis C infection may benefit from Nucleic Acid Test (RINKU) for Hepatitis C Viral RNA to confirm Hepatitis C status. Blood BLOOD SPECIMEN / Unknown Venipuncture / Unknown 03/27/2018 9:12 PM GROCERY CLERK SELLING 03/27/2018 9:21 PM GROCERY CLERK SELLING us Davi Patrick MD LAB - CHEMISTRY ORDERABLES Fin al Result Performing Organization Address [facility] Co de Phone Number [address] [phone] from Last 3 Months or Most Recently Relevant to Health Maintenance Insurance [facility] Care Teams Burglary Investigator Relationship Specialty Start Date End Date lAee Zhao MD [address] [place] [id number] PCP - General Family Medicine 03/25/18
[2025-01-29 14:45] VITALS: BP 175/101; PULSE 92; TEMP 37.1; O2SAT 97
[2025-01-29 14:56] VITALS: BP 163/102; PULSE 83; RESP 12; O2SAT 98
--- NOTE | 2025-01-29 15:11 | ED.ABDPAIN ---
HPI - Abdominal Pain General Chief Complaint: Abdominal Pain Stated Complaint: abd pain Time Seen by Provider: 01/29/25 15:08 Source: patient Mode of arrival: ambulatory Limitations: no limitations History of Present Illness HPI narrative: 44 years old white male came to the ED with sudden onset of upper abdominal pain started 2 hours prior to arrival associated with nausea and diaphoresis. History of pancreatitis and [facility] ED visit for the same complain. Patient requested Pepcid and Dilaudid. He denies fever or chills Related Data Home Medications ?Medication ?Instructions ?Recorded ?Confirmed ?Last Taken ?Type apixaban 5 mg tablet (Eliquis) 5 mg PO BID 04/05/23 04/05/23 Unknown History dicyclomine 20 mg tablet 20 mg PO BID 04/05/23 04/05/23 Unknown History Allergies Allergy/AdvReac Type Severity Reaction Status Date / Time metoclopramide Allergy Unknown Muscle Verified 01/29/25 15:03 Spasms haloperidol (From Haldol) AdvReac Mild Muscle Verified 01/29/25 15:03 Spasms doxycycline AdvReac Unknown Gastrointestinal Verified 01/29/25 15:03 Upset sulfamethoxazole AdvReac Unknown Gastrointestinal Verified 01/29/25 15:03 Upset trimethoprim AdvReac Unknown Gastrointestinal Verified 01/29/25 15:03 Upset prochlorperazine (From AdvReac Muscle Verified 01/29/25 15:03 Compazine) Spasms Sulfa (Sulfonamide AdvReac Gastrointestinal Verified 01/29/25 15:03 Antibiotics) Upset Review of Systems Review of Systems: All systems reviewed & are unremarkable except as noted in HPI and below PMFSH Past Medical History Medical History Kidney infarction Chronic pancreatitis Cyclical vomiting Anxiety Depression Kidney stones Hypertension GERD (gastroesophageal reflux disease) Cyclic vomiting syndrome IBD (inflammatory bowel disease) Gastroenteritis Pancreatitis Colitis Surgical History Surgical History Hx of cholecystectomy Family History Family History Grandparent Acute myocardial infarction Social History Social History Smoking packs per day: 1 Smoking cigarettes per day: 20.0 Years smoked: 20 Smoking pack-years: 20.00 Smoking status: Current every day smoker Tobacco type: cigarettes Alcohol intake: current Drinks per week: 3 Substance use: current Substance use type: marijuana Last use: PROBABLY ABOUT A WEEK AGOago Lack of Transportation: No Lack of Food: Never True Current Housing: I Have Housing Concerned About Future Housing: No Difficulty Paying Gas/Electric Bills: No Difficulty Paying for Meds: No Currently Unemployed: No Education: High School Diploma/GED Difficulty w/ Childcare or Family Care: No Living arrangements: alone Gender identity (if verbalized by the patient): Male Sexual Orientation (if Verbalized by the Patient): Straight or Heterosexual Spiritual care concerns: No Exam Narrative: General appearance: Well-developed, well-nourished Skin: Normal color Head: Normocephalic, nontraumatic Eyes: Clear conjunctiva ENT: Oropharynx normal, ears normal, nose normal Neck: Supple, nontender Chest and respiratory: Airway patent, no respiratory distress, no accessory muscle use Heart: Regular rate/rhythm Abdomen: Soft, diffuse tenderness upper abdomen, no guarding or rebound, no organomegaly, quiet bowel sounds Vascular: Normal peripheral pulses, normal capillary refill. Musculoskeletal: Normal range of motion, nontender back Neurologic: Alert and oriented ?3, BLOOD BANK COORDINATOR is normal as tested, no gross motor deficit Course Vital Signs Vital signs: Vital Signs Temperature 37.1 C 01/29/25 14:45 Pulse Rate 92 01/29/25 14:45 Blood Pressure 175/101 H 01/29/25 14:45 Pulse Oximetry 97 01/29/25 14:45 Temperature 37.1 C 01/29/25 15:48 Pulse Rate 67 01/29/25 17:02 Respiratory Rate 12 01/29/25 17:02 Blood Pressure 108/69 01/29/25 17:02 Pulse Oximetry 97 01/29/25 17:02 Oxygen Delivery Room Air 01/29/25 14:56 MDM - Abdominal Pain MDM Narrative Medical decision making narrative: Sudden onset of upper abdominal pain Vital signs showing blood pressure 175/101 otherwise within normal limit Physical examination showing severe tenderness upper abdomen, patient very restless because of pain Differential diagnosis include pancreatitis, cholecystitis, stress related symptoms, Blood workup today includes CBC, CMP, lipase showed WBC 15.4 Urinalysis showed no acute abnormalities CT abdomen and pelvis with IV contrast showed no acute abnormality In the ED patient received 1 L of normal saline, 0.5 mg of Dilaudid IV, 4 mg of Zofran IV with slight improvement followed by 5 mg of Valium IV with remarkable improvement. Patient currently is pain-free. Chronic abdominal pain with intermittent flare The pt was discharged to home.the pt,s condition upon discharge was fair,education was provided to the pt in reference to the final impression,discharge study results,treatment,prognosis and need for follow up . Differential Diagnosis Differential diagnosis: Likely abdominal pain, acute appendicitis, calculus of kidney, constipation, diverticulitis, gastroenteritis, pancreatitis and small bowel obstruction Medical Records Attestation: I reviewed the patient's medical records. Lab Data Attestation: I reviewed the patient's lab results. 01/29/25 15:23 01/29/25 15:23 Labs: Lab Results 01/29/25 Range/Units 15:23 WBC 15.4 H (4.5-10.0) K/mm3 RBC 4.77 (4.6-6.20) M/mm3 Hgb 14.1 (14.0-18.0) g/dL Hct 42.0 (42.0-52.0) % MCV 88.1 (80-100) fl MCH 29.6 (26-34) pg MCHC 33.6 (32-36) g/dl RDW 14.8 H (11.5-14.5) % Plt Count 270 (150-375) k/mm3 MPV 10.0 (7.4-10.4) fl Immature Gran % (Auto) 0.5 (0-0.5) % Neut % (Auto) 83.2 H (45.5-73.1) % Lymph % (Auto) 9.5 L (18.3-44.2) % Cocke % (Auto) 6.4 (2.6-8.5) % Eos % (Auto) 0.1 (0-4.4) % Baso % (Auto) 0.3 (0.2-1.2) % Lymph # (Auto) 1.47 (0.9-3.2) K/mm3 Cocke # (Auto) 1.0 H (0.1-0.6) K/mm3 Eos # (Auto) 0.0 (0-0.3) K/mm3 Baso # (Auto) 0.1 (0.0-0.1) K/mm3 Abs Immat Gran (auto) 0.08 H (0.00-0.031) K/mm3 Absolute Neuts (auto) 12.8 H (1.3-6.7) K/mm3 Absolute Nucleated RBC 0.000 (0.0-0.012) K/mm3 Nucleated RBC % 0.0 (0.0-0.2) % Sodium 139 (137-145) mmol/L Potassium 3.6 (3.4-5.0) mmol/L Chloride 106 (98-107) mmol/L Carbon Dioxide 24 (22-30) mmol/L Anion Gap 9 (4-12) mmol/L BUN 7 L (9-20) mg/dL Creatinine 0.86 (0.7-1.3) mg/dL Estim Creat Clear Calc 93 ml/min Estimated GFR > 60 (59 - ) Glucose 97 (65-110) mg/dL Calcium 8.9 (8.4-10.2) mg/dL Total Bilirubin 0.7 (0.2-1.3) mg/dL AST 26 (17-59) U/L ALT 17 (6-50) U/L Alkaline Phosphatase 85 (38-126) U/L Total Protein 6.9 (6.3-8.2) g/dL Albumin 4.3 (3.5-5.1) g/dL Lipase 82 (23-300) U/L Urine Color Yellow (Yellow) Urine Appearance Clear (Clear) Urine pH 6.0 (5.0-9.0) Ur Specific Spearman 1.014 (1.001-1.035) Urine Protein Negative (Negative) mg/dL Urine Glucose (UA) Negative (Negative) mg/dL Urine Ketones Trace H (Negative) mg/dL Ur Blood (Man) Negative (Negative) Urine Nitrate Negative (Negative) Urine Bilirubin Negative (Negative) Urine Urobilinogen 0.2 (<2.0) mg/dL Leukocyte Esterase Rfl Negative (Negative) CHRIS/UL Imaging Data My impression: CT abdomen and pelvis with IV contrast showed no acute abnormality to explain patient condition Critical Care Time Critical Care Time Critical Care Time: No Discharge Plan Discharge Clinical Impression: Abdominal pain Patient Disposition: Home Condition: Improved Instructions: Abdominal Pain (ED) Additional Instructions: Return if symptoms are worsening , call food and drug research scientist for appointment, take Tylenol as as needed for aches and pain, continue home medications. Patient Language: Iraqi Prescriptions: No Action omeprazole 20 mg capsule,delayed release(DR/EC) 20 mg PO DAILY Qty: 14 0RF ondansetron 4 mg tablet,disintegrating 4 mg PO Q8H PRN (Reason: nausea and vomiting) Qty: 14 0RF dicyclomine 20 mg tablet 20 mg PO QID Qty: 20 0RF promethazine 25 mg tablet 25 mg PO Q6H PRN (Reason: nausea and vomiting) Qty: 20 0RF ondansetron 4 mg tablet,disintegrating 4 mg PO Q8H PRN (Reason: nausea and vomiting) Qty: 10 0RF hyoscyamine sulfate [Levsin] 0.125 mg tablet 0.125 mg PO QID Qty: 14 0RF ondansetron 4 mg tablet,disintegrating 4 mg PO Q6H PRN (Reason: nausea and vomiting) Qty: 10 0RF alum-mag hydroxide-simeth [Maalox Advanced] 200-200-20 mg/5 mL suspension 10 ml PO QID PRN (Reason: dyspepsia) Qty: 300 0RF Rx Instructions: administer between meals and at bedtime ondansetron 4 mg tablet,disintegrating 4 mg PO Q8H PRN (Reason: nausea and vomiting) Qty: 10 0RF dicyclomine 20 mg Tablet 20 mg PO BID Patient Comments: HAVE NOT HAD A DOSE. UNABLE TO OBTAIN FROM HIS PHARMACY Eliquis 5 mg Tablet 5 mg PO BID dicyclomine 20 mg tablet 20 mg PO BID Qty: 30 0RF famotidine [Pepcid] 20 mg tablet 20 mg PO BID 42 Days Qty: 84 0RF ondansetron 4 mg tablet,disintegrating 4 mg PO Q8H PRN (Reason: nausea and vomiting) Qty: 10 0RF dicyclomine 20 mg tablet 20 mg PO TID PRN (Reason: abdominal pain) Qty: 20 0RF amoxicillin-pot clavulanate 875-125 mg tablet 1 tablet PO Q12H Qty: 14 0RF pantoprazole 40 mg tablet,delayed release (DR/EC) 40 mg PO HS Qty: 14 0RF famotidine [Pepcid] 20 mg tablet 20 mg PO DAILY Qty: 30 0RF ondansetron 4 mg tablet,disintegrating 4 mg PO Q6H PRN (Reason: nausea and vomiting) 3 Days Qty: 12 0RF Follow-up/Referrals: John,Td Lewis MD [Primary Care Provider, Unknown] Da Cota MD [Physician, Gastroenterology] - 01/30/25
--- OUTSIDE RECORDS SUMMARY | 2025-01-29 15:20 | XMS_ITS | Clinical Summary ---
Author Organization [facility] Address [facility] [place] [address] Care Team Providers Care Consulting Utility Forester Name Role Phone Td Lopez MD Primary Care Provider [phone] Allergies Active Allergy Reactions Criticality Noted Date Comments Capsaicin Other (see comment) Low 05/20/2019 Pt states it gets into his scars and causes a lot of pain Doxycycline GI Upset Low 03/29/2017 Haloperidol Other (see comment) 01/29/2022 Musculoskeletal pain Metoclopramide Myalgias 03/29/2017 Sulfa Antibiotics Myalgias,Other (see comment) Medium 03/29/2017 Reaction: neurological symptoms per patient Medications CREON [id number] units CAPSULE ENTERIC COATED PARTICLES Take 36,000 [...] pain 10/18/2022 Abdominal pain 10/18/2022 Acute pancreatitis ([facility]) 09/28/2022 Renal infarct ([facility]) 09/08/2022 Marijuana use 09/04/2022 Normocytic normochromic anemia 09/04/2022 Sphincter of Oddi dysfunction 09/04/2022 Tobacco use disorder, continuous 09/04/2022 Pancreatitis ([facility]) 09/02/2022 GI bleed 06/28/2022 Folliculitis 01/08/2022 Overview (09/04/2022): Last Assessment & Plan: - chronic, uncontrolled - start clindamycin gel daily x 7 days - ref to derm for eval. Manipulative behavior 07/14/2021 COVID-19 vaccine series completed 06/27/2021 Overview (09/04/2022): Moderna x2 Drug-seeking behavior 06/27/2021 History of 2019 novel coronavirus disease (COVID -19) 06/27/2021 Drug abuse and dependence ([facility]) 09/2020 Overview (09/04/2022): Last Assessment & Plan: - using mariajuana occasionally; has had frequent rx for opioids in ER - pt claims at least several days since last ER visit with narcotics given - record review suggests at least 2 wks - will check UDS Acute recurrent pancreatitis ([facility]) Other chronic pancreatitis ([facility]) Overview (09/04/2022): Last Assessment & Plan: - stable today - continue current medications - f/u with Dr Rosas as planned - encouraged pt to come to clinic instead of going to ER next time he has abdominal pain 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 Hyperemesis 10/18/2019 Annual physical [...] Colitis 02/18/2019 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/18/2018 Mild malnutrition ([facility]) 10/18/2018 Neutrophilic leukocytosis 10/18/2018 Tobacco use disorder 10/18/2018 Other chronic pancreatitis ([facility]) 02/2019 Overview (02/18/2019): Overview: Added automatically from request for surgery [id number] Chronic abdominal pain 03/30/2017 Assessment & Plan (03/30/2017 12:03 PM BRIDGE IRONWORKER HELPER): Acute on chronic, stable Patient with possible [...] Continue to advance diet as tolerated Sepsis ([facility]) 03/30/2017 Assessment & Plan (03/30/2017 12:03 PM BRIDGE IRONWORKER HELPER): Present on admission, resolved Lactic acid 2.8 [...] 03/30/2017 Assessment & Plan (03/30/2017 12:25 AM BRIDGE IRONWORKER HELPER): - established, controlled - continue home fluoxetine, nortriptyline GERD (gastroesophageal reflux disease) 7 Assessment & Plan (03/30/2017 12:25 AM BRIDGE IRONWORKER HELPER): - established, controlled - continue home nexium Hypertension 03/30/2017 Overview (03/30/2017): - established, controlled - continue home metoprolol Assessment & Plan (03/30/2017 1:01 AM BRIDGE IRONWORKER HELPER): - established, controlled - continue home metoprolol Influenza 03/30/2017 Depression 03/30/2017 Overview (02/18/2019): Overview: Last Assessment & Plan: - established, controlled - continue home fluoxetine, nortriptyline Flu 03/29/2017 Assessment & Plan (03/30/2017 12:03 PM BRIDGE IRONWORKER HELPER): Acute, influenza A + on admission, asymptomatic [...] week 09/28/2022 How often do you attend rastafarian or anabaptism serv ices? Never 09/28/2022 Do you belong [...] and heating? Not hard at all 10/18/2022 [facility] of Occupat ional [facility] - Occupational Stress Questionnaire Answer [...] Sex Assigned at Male 06/21/2024 7:21 PM BRIDGE IRONWORKER HELPER Legal Sex Male 8:10 AM CDT Gender [...] 6:07 PM 10/19/2019 4:11 PM Care Teams Consulting Utility Forester Relationship Specialty Start Date End Date Td Lopez MD PCP - General FAMILY PRACTICE 08/18/19
--- OUTSIDE RECORDS SUMMARY | 2025-01-29 15:20 | XMS_ITS | Clinical Summary ---
Author Organization [facility] Address [address] [place] [phone] Phone Care Team Providers Care Chainstitch Sewing Machine Operator Name Role Phone Unavailable Primary Care [...] on file Legal Sex Male 7:38 PM CHEMICAL PROCESS OPERATOR Gender Identity Not on file Sexual Orientation Not on file Last Filed Vital Signs Vital Sign Reading Time Taken Comments Blood Pressure 119/84 07/11/2022 2:03 AM CHEMICAL PROCESS OPERATOR Pulse 80 07/11/2022 2:03 AM CHEMICAL PROCESS OPERATOR Temperature 36.3 C (97.4 F) 07/11/2022 2:03 AM CHEMICAL PROCESS OPERATOR Respiratory Rate 18 07/11/2022 2:03 AM CHEMICAL PROCESS OPERATOR Oxygen Saturation 97% 07/11/2022 2:03 AM CHEMICAL PROCESS OPERATOR Inhaled Oxygen Concentration - - Weight 79.4 kg (175 lb) 07/10/2022 8:06 PM CHEMICAL PROCESS OPERATOR Height 177.8 cm (5' 10) 07/10/2022 8:06 PM CHEMICAL PROCESS OPERATOR Body Mass Index 25.11 07/10/2022 8:06 PM CHEMICAL PROCESS OPERATOR Plan of Treatment Health Maintenance Due Date Last Done Comments HEPATITIS B VACCINES (1 of 3 - 19+ 3-dose series) 2000 HPV VACCINES (1 - 3-dose SCD M series) 2008 INFLUENZA VACCINE (#1) 2024 , 02/29/2020, 02/09/2018 COVID-19 Vaccine (4 - 2024-2 6 season) 2025 10/29/2021, 11/02/2020, 10/05/2020 DTAP/TDAP/TD VACCINES (2 - T d or Tdap) 10/30/2031 10/29/2021 Insurance [facility] MEDICAID [place]ICAID [place]
--- OUTSIDE RECORDS SUMMARY | 2025-01-29 15:20 | XMS_ITS | Clinical Summary ---
Author Organization [facility] Address [address] [address] Care Team Providers Care Chief Design Branch Name Role Phone Alee Zhao MD Primary Care Provider [phone] [facility],non-owned Affiliates and Associated Physician Practices is amultiple site organization consisting of ambulatory clinics and hospital sitesin [place], [place], [place] and [place]. This disclosure is being madepursuant to the Care Everywhere program and may not contain all information available regarding this patient. Last updated 18.[facility] Allergies Active Allergy Reactions Criticality Noted Date [...] on file Legal Sex Male 7:46 PM SALE PROFESSIONAL DIGITAL MARKETING Gender Identity Not on file Sexual Orientation Not on file Last Filed Vital Signs Vital Sign Reading Time Taken Comments Blood Pressure 120/71 03/17/2019 5:03 PM SALE PROFESSIONAL DIGITAL MARKETING Pulse 75 03/17/2019 5:03 PM SALE PROFESSIONAL DIGITAL MARKETING Temperature 36.9 C (98.4 F) 03/17/2019 2:00 PM SALE PROFESSIONAL DIGITAL MARKETING Respiratory Rate 17 03/17/2019 5:03 PM SALE PROFESSIONAL DIGITAL MARKETING Oxygen Saturation 99% 03/17/2019 5:03 PM SALE PROFESSIONAL DIGITAL MARKETING Inhaled Oxygen Concentration - - Weight 77.1 kg (170 lb) 03/17/2019 2:00 PM SALE PROFESSIONAL DIGITAL MARKETING Height 177.8 cm (5' 10) 03/17/2019 2:00 PM SALE PROFESSIONAL DIGITAL MARKETING Body Mass Index 24.39 03/17/2019 2:00 PM SALE PROFESSIONAL DIGITAL MARKETING Plan of Treatment Health Maintenance Due Date [...] RFLX NAAT QUANT STAT 03/27/2018 9:12 PM SALE PROFESSIONAL DIGITAL MARKETING HIV-1 HIV-2 ANTIGEN/ANTIBODY STAT 03/27/2018 9:12 PM SALE PROFESSIONAL DIGITAL MARKETING from Last 3 Months or Most Recently Relevant to Health Maintenance Results * HIV-1 HIV-2 ANTIGEN/ANTIBODY (03/27/2018 9:12 PM SALE PROFESSIONAL DIGITAL MARKETING) HIV Antigen/Antibod y 1 & 2 Non-reacti ve Non-react nemesio 03/27/2018 10:17 PM SALE PROFESSIONAL DIGITAL MARKETING [facility] Comment: Neither HIV-1 p24 Antigen nor HIV-1/HIV-2 Antibodies are detected. Blood BLOOD SPECIMEN / Unknown Venipuncture / Unknown 03/27/2018 9:12 PM SALE PROFESSIONAL DIGITAL MARKETING 03/27/2018 9:21 PM SALE PROFESSIONAL DIGITAL MARKETING us Davi Patrick MD LAB - HEMATOLOGY ORDERABLES Fi nal Result Performing Organization Address [facility] Co de Phone Number [address] [phone] * HEPATITIS C AB SCREEN RFLX NAAT QUANT (03/27/2018 9:12 PM SALE PROFESSIONAL DIGITAL MARKETING) Hepatitis C Antibody Non-react nemesio Non-reac tive 03/27/2018 10:20 PM SALE PROFESSIONAL DIGITAL MARKETING [facility] Comment: Hepatitis C Antibody screen indicates no serologic evidence of past or current infection with Hepatitis C Virus. Patients with unexplained liver disease who are immunocompromised or suspected of having acute Hepatitis C infection may benefit from Nucleic Acid Test (RINKU) for Hepatitis C Viral RNA to confirm Hepatitis C status. Blood BLOOD SPECIMEN / Unknown Venipuncture / Unknown 03/27/2018 9:12 PM SALE PROFESSIONAL DIGITAL MARKETING 03/27/2018 9:21 PM SALE PROFESSIONAL DIGITAL MARKETING us Davi Patrick MD LAB - CHEMISTRY ORDERABLES Fin al Result Performing Organization Address [facility] Co de Phone Number [address] [phone] from Last 3 Months or Most Recently Relevant to Health Maintenance Insurance [facility] Care Teams Chief Design Branch Relationship Specialty Start Date End Date Alee Zhao MD [address] [place] [phone] PCP - General Family Medicine 03/25/18
--- OUTSIDE RECORDS SUMMARY | 2025-01-29 15:20 | XMS_ITS | Encounter Summary ---
Author Organization [facility] Address [address] [place] [address] Care Team Providers Care Customer Supply Coordinator Name Role Phone Td Lopez MD Primary Care Provider + Angie Woodard MD Unavailable [phone] Vimal Woodruff MD Unavailable PastorAlannah MA Unavailable [phone] PastorAlannah fair MA Unavailable [phone] PastorAlannah fair MA Unavailable [phone] Eun Arana RN Unavailable Lakshmi Garcia LPN Unavailable [phone] Niki Burns MA Unavailable Encounter Details Date Type Department Care Team (Late st Contact Info) Description 12/21/2017 Documentation [address] [place] [id number] Shannan Farfan, JOHN Social History Tobacco Use Types Packs/Day Years Used Date Smoking Tobacco: Every Day Sex and Gender Information Value Date Recorded Sex Assigned at Not on file Legal Sex Male 3:38 AM EMBEDDED PROCESSOR Gender Identity Not on file Sexual [...] COVID: Suspected 06/27/2021 06/27/2021 06/27/2021 12:53 PM EMBEDDED PROCESSOR COVID19 06/27/2021 06/27/2021 07/08/2021 3:05 AM EMBEDDED PROCESSOR COVID: Recovered Comment:Added based on recent COVID infection. 07/08/2021 07/14/2021 11/05/2021 3:05 AM C DT COVID: Suspected 05/20/2022 05/20/2022 05/20/2022 2:32 AM EMBEDDED PROCESSOR COVID: Suspected 09/20/2023 09/20/2023 09/20/2023 9:26 PM CDT COVID: Suspected 10/04/2023 10/04/2023 10/04/2023 3:55 PM CDT documented as of this encounter Care Teams Customer Supply Coordinator Relationship Specialty Start Date End Date Td Lopez MD [facility] [address] PCP - General Family Medicine 11/09/20 Angie Woodard MD [address] [facility] [address] [place] [address] Consulting Physician Gastroenterology 07/17/21 Vimal Woodruff MD [address] [facility] [address] [place] [address] Consulting Physician Gastroenterology 02/10/22 Alannah Baumann MA [address] [place] [address] ACO Care Engine Lathe Operator 12/31/23 01/05/24 Alannah Baumann MA [address] [place] [address] ACO Care Engine Lathe Operator 06/29/24 06/30/24 Alannah Baumann MA [address] [place] [address] [address] [place] [address] ACO Care Engine Lathe Operator 08/03/24 08/03/24 Eun Arana RN [address] [place] [address] [address] [place] [address] Nutrition And Dietetics Instructor 08/17/24 08/25/24 Lakshmi Garcia LPN [address] [place] [address] [address] [place] [address] Nutrition And Dietetics Instructor 10/05/24 10/05/24 Niki Burns MA [address] [place] [address] [address] [place] [address] ACO Care Engine Lathe Operator 10/18/24 10/19/24 documented as of this encounter
[2025-01-29 15:35] LABS: Hematocrit 42.0 % (42.0-52.0); Hemoglobin 14.1 g/dL (14.0-18.0); Immature Granulocyte Percent A 0.5 % (0-0.5); Lymphocytes Absolute Auto 1.47 K/mm3 (0.9-3.2); Mean Corpuscular HGB Conc 33.6 g/dl (32-36); Mean Corpuscular Hemoglobin 29.6 pg (26-34); Mean Corpuscular Volume 88.1 fl (80-100); Nucleated Red Blood Cells Absolute Auto 0.000 K/mm3 (0.0-0.012); Nucleated Red Blood Cells Perc 0.0 % (0.0-0.2); Platelet Count Result 270 k/mm3 (150-375); Red Blood Count 4.77 M/mm3 (4.6-6.20); White Blood Count 15.4 K/mm3 (4.5-10.0)
[2025-01-29] MEDS: SODIUM CHLORIDE 0.9% IV 1,000 ML 999 ML IV CONT (15:43)
[2025-01-29] MEDS: HYDROmorphone HCL INJ (*CRX) 1 MG/ML SYR 0.5 MG IV PUSH (15:43)
[2025-01-29] MEDS: ONDANSETRON INJ 4 MG/2 ML VIAL IV PUSH (15:43)
[2025-01-29] MEDS: FAMOTIDINE 20 MG/2 ML VIAL IV PUSH (15:43)
[2025-01-29 15:48] VITALS: BP 160/82; PULSE 83; RESP 19; TEMP 37.1; O2SAT 99
[2025-01-29 15:49] LABS: Add Urine Microscopic? NO; Appearance Urine Clear (Clear); Glucose Urine UA Negative (Negative); Leukocyte Esterase Ur Negative LEU/UL (Negative); Nitrate Urine Negative (Negative); Specific Grav Ur 1.014 (1.001-1.035)
[2025-01-29 15:51] LABS: Alanine Aminotransferase 17 U/L (6-50); Albumin Level 4.3 g/dL (3.5-5.1); Alkaline Phosphatase 85 U/L (38-126); Anion Gap 9 mmol/L (4-12); Aspartate Amino Transferase 26 U/L (17-59); Bilirubin,Total 0.7 mg/dL (0.2-1.3); Blood Urea Nitrogen 7 mg/dL (9-20); Calcium 8.9 mg/dL (8.4-10.2); Carbon Dioxide 24 mmol/L (22-30); Chloride 106 mmol/L (98-107); Estimated CRCL calculation 93 ml/min; Estimated Glomerular Filt Rate > 60; Glucose 97 mg/dL (65-110); Lipase 82 U/L (23-300); Potassium 3.6 mmol/L (3.4-5.0); Sodium 139 mmol/L (137-145); Total Protein 6.9 g/dL (6.3-8.2)
[2025-01-29 17:02] VITALS: BP 108/69; PULSE 67; RESP 12; O2SAT 97
[2025-01-29] MEDS: diazePAM INJ (*CRX) 10 MG/2 ML SYRINGE 5 MG IV PUSH (17:02)
[2025-01-29 18:23] VITALS: BP 112/83; PULSE 68; RESP 14; O2SAT 100
== END 2025-01-29 18:25 | disposition home or self-care (01) ==
PROVIDERS: Emergency Medicine; Emergency Provider Emergency Medicine; PCP Family Medicine
DX: R10.10 Upper abdominal pain, unspecified (principal); F17.210 Nicotine dependence, cigarettes, uncomplicated; F41.9 Anxiety disorder, unspecified; F32.A Depression, unspecified; Z87.442 Personal history of urinary calculi; I10 Essential (primary) hypertension; K21.9 Gastro-esophageal reflux disease without esophagitis
CPT/HCPCS: 36415; 80053; 81003; 83690; 85025; 96361; 96374; 96375; 99284; J1171; J2405; J3360; J7030

== ENCOUNTER 2025-01-31 21:28 | Emergency (ER) | payer MEDICAID, SELFPAY ==
--- OUTSIDE RECORDS SUMMARY | 2023-09-21 09:30 | XMS_ITS ---
Author Organization [facility] Address [address] [place] [address] Care Team Providers Care Executive Director Of Marketing Name Role Phone John TUCKER, Td Primary Care Provider Unavaila jenny FIGUEROA MANAGER STATISTICAL PROGRAMMING, NATALIYA Unavailable [phone] IFRAH TUCKER, BRODERICK Unavailable [phone] REASON FOR VISIT ERCP INPT Encounters Encounter Location Date Provider Diagnosis [facility] - Op [address] [place], [place] [id number] 09/21/2023 BRODERICK RG Plan Of Treatment No Information Progress Notes * Donovan BROWN MDOB: 2 (44 yo M)Acc No.[id number]:09/21/2023 Patient: Donovan HASSAN Provider: William Rg MD, FASGE :1980 A ge:43 Y S ex:Male Date:09/21/2023 Address:[address] [id number] Pcp:Td Lopez MD * * Electronic signature of ROSETTE RG MD, MD on 01/31/2025 at 11:16 PM EDT Sign off status: Pending * Provider: William Rg MD, FASGE Date: 09/21/2023 Generated for Printi ng/Faxing/eTransmitting on: 0 01/31/2025 11:16 PM EDT
--- OUTSIDE RECORDS SUMMARY | 2023-09-23 10:00 | XMS_ITS ---
Author Organization [facility] Address [address] [place] [address] Care Team Providers Care Cell Tuber Machine Name Role Phone John TUCKER, Td Primary Care Provider Unavaila jenny FIGUEROA MILLINERY DEPARTMENT MANAGER, NATALIYA Unavailable IFRAH TUCKER, BRODERICK Unavailable REASON FOR VISIT ERCP stent pull INPT Encounters Encounter Location Date Provider Diagnosis [facility] - Op [address] [place], [place] [phone] 09/23/2023 BRODERICKNICKY RG Plan Of Treatment No Information Progress Notes * Donovan BROWN MDOB: 2 (44 yo M)Acc No.[id number]:09/23/2023 Patient: Donovan HASSAN Gaby Provider: William Rg MD, FASGE :1980 A ge:43 Y S ex:Male Date:09/23/2023 Address:[address] [id number] Pcp:Td Lopez MD * * Electronic signature of ROSETTE RG MD, MD on 01/31/2025 at 11:15 PM EDT Sign off status: Pending * Provider: William Rg MD, FASGE Date: 0 09/23/2023 Generated for Printi ng/Faxing/eTransmitting on: 0 01/31/2025 11:15 PM EDT
--- OUTSIDE RECORDS SUMMARY | 2024-02-29 04:00 | XMS_ITS ---
Author Organization [facility] Address [address] [place] [address] Care Team Providers Care Ed Teacher Name Role Phone John TUCKER, Td Primary Care Provider Tucker FIGUEROA NP, NATALIYA Porras REASON FOR VISIT FU ER Visit Encounters Encounter Location Date Provider Diagnosis [facility] [address] [place] [address] 02/29/2024 NATALIYA FIGUEROA Plan Of Treatment No Information Progress Notes * Donovan BROWN MDOB: 2 (44 yo M)Acc No.[id number]:02/29/2024 Progress Notes Patient: Donovan HASSAN Appointment Provider: Enrrique Figueroa CNP :1980 A ge:43 Y S ex:Male Date:02/29/2024 [facility] [facility] Pcp:Td Lopez MD Subjective: * Chief Complaints: * 1 . FU ER Visit. * Medical History: Objective: * Vitals: Assessment: Plan: * Treatment: * * Electronic signature of AMANDA FIGUEROA NP, MSN CATH LAB NURSE-BC on 01/31/2025 at 11:15 PM EDT Sign off status: Pending * Appointment Provider: Enrrique Figueroa CNP Date: 1 Generated for Printing/Faxing/eTransmitting on: 0 01/31/2025 11:15 PM EDT
[2025-01-31 21:41] VITALS: BP 161/120; PULSE 94; RESP 20; TEMP 36.8; O2SAT 100
--- NOTE | 2025-01-31 22:09 | PC.NURSE ---
pt to travel med surg rn I left my phone in my car, ill be back in just a minute. 15 minutes later pt still has not returned.
--- OUTSIDE RECORDS SUMMARY | 2025-01-31 22:15 | XMS_ITS | Clinical Summary ---
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 Gender Identity Not on file Sexual Orientation Not on file Last Filed Vital Signs Vital Sign Reading Time Taken Comments Blood Pressure 119/84 07/11/2022 2:03 AM FUNERAL HOME MAKEUP ARTIST Pulse 80 07/11/2022 2:03 AM FUNERAL HOME MAKEUP ARTIST Temperature 36.3 C (97.4 F) 07/11/2022 2:03 AM FUNERAL HOME MAKEUP ARTIST Respiratory Rate 18 07/11/2022 2:03 AM FUNERAL HOME MAKEUP ARTIST Oxygen Saturation 97% 07/11/2022 2:03 AM FUNERAL HOME MAKEUP ARTIST Inhaled Oxygen Concentration - - Weight 79.4 kg (175 lb) 07/10/2022 8:06 PM FUNERAL HOME MAKEUP ARTIST Height 177.8 cm (5' 10) 07/10/2022 8:06 PM FUNERAL HOME MAKEUP ARTIST Body Mass Index 25.11 07/10/2022 8:06 PM FUNERAL HOME MAKEUP ARTIST Plan of Treatment Health Maintenance Due Date Last Done Comments HEPATITIS B VACCINES (1 of 3 - 19+ 3-dose series) 2000 HPV VACCINES (1 - 3-dose SCD M series) 2008 INFLUENZA VACCINE (#1) 2024 , 02/29/2020, 02/09/2018 COVID-19 Vaccine (4 - 2024-2 6 season) 2025 10/29/2021, 11/02/2020, 10/05/2020 DTAP/TDAP/TD VACCINES (2 - T d or Tdap) 10/30/2031 10/29/2021 Insurance [facility] MEDICAID [place]ICAID [place]
--- OUTSIDE RECORDS SUMMARY | 2025-01-31 22:16 | XMS_ITS | Encounter Summary ---
Author Organization [facility] Healthcare Address [address] [place] [address] Care Team Providers Care Mainframe Analyst Name Role Phone Td Lopez MD Primary Care Provider + Angie Woodard MD Unavailable [phone] Vimal Woodruff MD Unavailable PastorAlannah MA Unavailable [phone] PastorAlannah fair MA Unavailable [phone] PastorAlannah fair MA Unavailable [phone] Eun Arana RN Unavailable [phone] Lakshmi Garcia LPN Unavailable [phone] Niki Burns MA Unavailable Encounter Details Date Type Department Care Team (Late st Contact Info) Description 12/21/2017 Documentation [address] [place] [phone] Shannan Farfan, JOHN Social History Tobacco Use Types Packs/Day Years Used Date Smoking Tobacco: Every Day Sex and Gender Information Value Date Recorded Sex Assigned at Not on file Legal 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 07/08/2021 07/14/2021 11/05/2021 3:05 AM C DT COVID: Suspected 05/20/2022 05/20/2022 05/20/2022 2:32 AM SKIFF OPERATOR COVID: Suspected 09/20/2023 09/20/2023 09/20/2023 9:26 PM CDT COVID: Suspected 10/04/2023 10/04/2023 10/04/2023 3:55 PM CDT documented as of this encounter Care Teams Mainframe Analyst Relationship Specialty Start Date End Date Td Lopez MD [facility] [address] PCP - General Family Medicine 11/09/20 Angie Woodard MD [address] [facility] [address] [place] [address] Consulting Physician Gastroenterology 07/17/21 Vimal Woodruff MD [address] [facility] [address] [place] [address] Consulting Physician Gastroenterology 02/10/22 Alannah Baumann MA [address] [place] [address] ACO Care Cotton Picker 12/31/23 01/05/24 Alannah Baumann MA [address] [facility] [address] [place] [address] ACO Care Cotton Picker 06/29/24 06/30/24 Alannah Baumann MA [address] [place] [address] [address] [place] [address] ACO Care Cotton Picker 08/03/24 08/03/24 Eun Arana RN [address] [place] [address] [address] [place] [address] Insurance Defense Paralegal 08/17/24 08/25/24 Lakshmi Garcia LPN [address] [place] [address] [address] [place] [address] Insurance Defense Paralegal 10/05/24 10/05/24 Niki Burns MA [address] [place] [address] [address] [place] [address] ACO Care Cotton Picker 10/18/24 10/19/24 documented as of this encounter
--- OUTSIDE RECORDS SUMMARY | 2025-01-31 22:16 | XMS_ITS | Patient Health Record ---
Author Organization [facility] Address [address] [facility] [address] [place] [address] Care Team Providers Care Neurology Manager Name Role Phone Jhon TUCKER, Td Primary Care Provider Tucker FIGUEROA TECH ED TEACHER, NATALIYA Unavailable Allergies Allergen (clinical drug ingredient) [...] W/U Status Risk Notes Problem Chronic pancreatitis (608690122) Other chronic pancreatitis (K86.1) Active confirmed Plan Of Treatment No Information Insurance Providers Payer Name Payer Address Payer Phone Subscriber Number Group Number Insured Name Patient Relationship to Insured Coverage Start Date Coverage End Date [address] [id number] Donovan Bailey Self - patient is the insured Medical (General) History Medical History History ICD Code chronic pancreatitis cyclic vomiting hyperemesis cannabis Surgical History Surgery Date(Month/Year) cholecystectomy ERCP
--- OUTSIDE RECORDS SUMMARY | 2025-01-31 22:16 | XMS_ITS | Clinical Summary ---
Author Organization [facility] Address [address] [place] [place] [address] Care Team Providers Care Cage/Vault Supervisor Name Role Phone Alee Zhao MD Primary Care Provider [phone] Source Comments [facility],non-owned Affiliates and Associated Physician Practices is amultiple site organization consisting of ambulatory clinics and hospital sitesin [place], [place], [place] and [place]. This disclosure is being madepursuant to the Care Everywhere program and may not contain all information available regarding this patient. Last updated 18.[facility] Allergies Active Allergy Reactions Criticality Noted Date [...] on file Legal Sex Male 7:46 PM HAT MENDER Gender Identity Not on file Sexual Orientation Not on file Last Filed Vital Signs Vital Sign Reading Time Taken Comments Blood Pressure 120/71 03/17/2019 5:03 PM HAT MENDER Pulse 75 03/17/2019 5:03 PM HAT MENDER Temperature 36.9 C (98.4 F) 03/17/2019 2:00 PM HAT MENDER Respiratory Rate 17 03/17/2019 5:03 PM HAT MENDER Oxygen Saturation 99% 03/17/2019 5:03 PM HAT MENDER Inhaled Oxygen Concentration - - Weight 77.1 kg (170 lb) 03/17/2019 2:00 PM HAT MENDER Height 177.8 cm (5' 10) 03/17/2019 2:00 PM HAT MENDER Body Mass Index 24.39 03/17/2019 2:00 PM HAT MENDER Plan of Treatment Health Maintenance Due Date [...] RFLX NAAT QUANT STAT 03/27/2018 9:12 PM HAT MENDER HIV-1 HIV-2 ANTIGEN/ANTIBODY STAT 03/27/2018 9:12 PM HAT MENDER from Last 3 Months or Most Recently Relevant to Health Maintenance Results * HIV-1 HIV-2 ANTIGEN/ANTIBODY (03/27/2018 9:12 PM HAT MENDER) HIV Antigen/Antibod y 1 & 2 Non-reacti ve Non-react nemesio 03/27/2018 10:17 PM HAT MENDER [facility] Comment: Neither HIV-1 p24 Antigen nor HIV-1/HIV-2 Antibodies are detected. Blood BLOOD SPECIMEN / Unknown Venipuncture / Unknown 03/27/2018 9:12 PM HAT MENDER 03/27/2018 9:21 PM HAT MENDER us Davi Patrick MD LAB - HEMATOLOGY ORDERABLES Fi nal Result Performing Organization Address [facility] Co de Phone Number [address] [phone] * HEPATITIS C AB SCREEN RFLX NAAT QUANT (03/27/2018 9:12 PM HAT MENDER) Hepatitis C Antibody Non-react nemesio Non-reac tive 03/27/2018 10:20 PM HAT MENDER [facility] Comment: Hepatitis C Antibody [...] Unknown Venipuncture / Unknown 03/27/2018 9:12 PM HAT MENDER 03/27/2018 9:21 PM HAT MENDER us Davi Patrick MD LAB - CHEMISTRY ORDERABLES Fin al Result Performing Organization Address [facility] Co de Phone Number [address] [phone] from Last 3 Months or Most Recently Relevant to Health Maintenance Insurance [facility] Care Teams Cage/Vault Supervisor Relationship Specialty Start Date End Date Alee Zhao MD [address] [place] [phone] PCP - General Family Medicine 03/25/18
--- OUTSIDE RECORDS SUMMARY | 2025-01-31 22:16 | XMS_ITS | Clinical Summary ---
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 Assessment & Plan (03/25/2024 11:49 AM SWEAT BAND SEWER): - ref to derm for eval Drug [...] pain Assessment & Plan (03/25/2024 11:49 AM SWEAT BAND SEWER): - poor control - continue hyosciamine, famotidine, zofran - ref to GI for continued treatment Assessment & Plan (03/20/2023 11:07 AM SWEAT BAND SEWER): - stable - continue current medication Duodenal [...] prn Assessment & Plan (07/15/2019 11:44 AM SWEAT BAND SEWER): - stable - continue bentyl and amitriptyline [...] medication Assessment & Plan (07/15/2019 11:44 AM SWEAT BAND SEWER): - stable - continue creon Annual physical [...] able Assessment & Plan (07/15/2019 11:46 AM SWEAT BAND SEWER): - encourage healthy diet, exercise - check labs - encouraged quitting smoking Enteritis 02/18/2019 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 Assessment & Plan (07/15/2019 11:37 AM SWEAT BAND SEWER): - encouraged pt to quit smoking Abdominal [...] GI Assessment & Plan (03/20/2023 11:07 AM SWEAT BAND SEWER): - stable - continue current medication per [...] 09/17/202209/08 Assessment & Plan (03/20/2023 11:08 AM SWEAT BAND SEWER): - stable off meds - will monitor [...] 09/25/2023 Assessment & Plan (03/26/2021 11:41 AM SWEAT BAND SEWER): - stable today - continue current medications [...] lexapro Assessment & Plan (07/15/2019 11:38 AM SWEAT BAND SEWER): - stable - continue current plan Gastroesophageal reflux dise ase without esophagitis 07/15/2019 03/18/2023 Overview (07/15/2019): - GERD managed by Dr Woodard - Pt on omeprazole and carafate for sx control Assessment & Plan (01/01/2021 12:09 PM CDT): - stable - continue current medication Assessment & Plan (02/07/2020 2:32 PM CDT): - stable - continue current medication Assessment & Plan (07/15/2019 11:38 AM SWEAT BAND SEWER): - stable - continue omeprazole and carafate Viral illness 07/08/2019 02/12/2021 Assessment & Plan (07/09/2019 9:12 AM SWEAT BAND SEWER): Medrol Dosepak as directed. Recommended Mucinex plain [...] this as this is not a viable mcc solution - will ref to pain management [...] medication Assessment & Plan (07/15/2019 11:36 AM SWEAT BAND SEWER): - controlled - continue current plan Chronic [...] CDT - 01/28/2025 6:49 PM CDT Emergency [facility] Emergency Department [address] [place] [address] Chronic abdominal pain (Primary Dx) Discharge Disposition: Discharge to home or self care 01/22/2025 7:28 AM CDT - 01/22/2025 11:05 AM CDT Emergency [address] [address] Freddy Yao DO Chronic abdominal pain (Primary Dx) Discharge Disposition: Discharge to home or self care 12/06/2024 Orders Only [facility] [place] [place] Health Information Management [address] [place] [address] Scanning, Provider 12/01/2024 12:42 AM CDT - 12/03/2024 3:20 PM CDT Hospital Encounter [facility] [address] [place] [id number] Domenic Arias MD Holthaus, MD Alexandra Ayala Fariah Habib, DO Jain, Anshu, MD Enteritis (Primary Dx); Abdominal pain; Cyclic vomiting syndrome; Hyperemesis Discharge Disposition: Discharge to home or self care 11/26/2024 2:02 AM CDT - 11/26/2024 4:25 AM T Emergency [facility] Emergency Department [address] [place] [address] Blue Warren MD Abdominal pain (Primary Dx); [...] drink = 0.6 oz pur e alcohol) [facility] Utilities Answer Date Recorded In the past 12 months has e [facility] gas, oil, or water [employer] threatened to shut off services in your [...] often do you attend chur ch or pentecostalism services? Never 12/01/2024 Do you belong to [...] any time in the past 12 m [facility], were you homeless or living in a snf (including now)? No 12/01/2024 Personal Safety Answer Date Recorded Have you ever been in or are you currently in a harmful physical or emotional relationship or is someone making you feel afraid or unsafe? Denies 01/28/2025 Sex and Gender Information Value Date Recorded Sex Assigned at Not on file Legal Sex Male 3:38 AM SWEAT BAND SEWER Gender Identity Not on file Sexual Orientation [...] Vaccines Discontinued Medical Devices Explanted Type Area Certified Pharmacy Tech Device Identifier Shelf Expiration Date Model / Serial / Lot [employer] 6572 Connell Flexi-Stent 7fr 5cm Small Pigtail Flexible .035in Stent - [id number] Implanted:Qty: 1 on 09/18/2018 by Vimal Woodruff MD at [facility] Explanted:Qty: 1 on 09/20/2018 at [facility] Stent N/A: Pancreas [employer] (formerly [employer] Inc 06/10/2023 [id number] / / [id number] Conmed Gina [id number] Calypso Viabil 10mm 8.5fr 6cm 200cm Fully Covered Self Expand Pull - [id number] - [id number] Implanted:Qty: 1 on 09/18/2018 by Vimal Woodruff MD at [facility] Explanted:Qty: 1 on 09/20/2018 at [facility] Stent N/A: Bile Duct Conmed Gina 06/29/2021 [id number] / [id number] / [employer] Connell Flexi-Stent 7fr 9cm Small Pigtail Flexible .035in Stent 6575 - [id number] Implanted:Qty: 1 on 02/07/2022 by Vimal Woodruff MD at [facility] Explanted:Qty: 1 on 02/10/2022 by Vimal Woodruff MD at [facility] Stent N/A: Pancreas [employer] Inc 09/07/2026 [id number] / / [id number] [employer] Gina Wallflex 10mm X 60mm Fully Covered Biliary [id number] - [id number] Implanted:Qty: 1 on 02/07/2022 by Vimal Woodruff MD at [facility] Explanted:Qty: 1 on 02/10/2022 by Vimal Woodruff MD at [facility] Stent N/A: Bile Duct [employer] Gina 11/04/2023 [id number] / / [id number] [employer] Connell Flexi-Stent 7fr 9cm Small Pigtail Flexible .035in Stent 6575 - [id number] Implanted:Qty: 1 on 09/21/2023 by Vimal Woodruff MD at [facility] Explanted:Qty: 1 on 09/23/2023 by Vimal Woodruff MD at [facility] Stent N/A: Pancreas [employer] 03/11/2028 [id number] / / [id number] Description:Not present at b eginning of case. Self migrated out [employer] Gina Wallflex 10mm X 60mm Fully Covered Biliary [id number] - [id number] Implanted:Qty: 1 on 09/21/2023 by Vimal Woodruff MD at [facility] Explanted:Qty: 1 on 09/23/2023 by Vimal Woodruff MD at [facility] Stent N/A: Bile Duct [employer] Gina 08/02/2025 [id number] / / [id number] Procedures Procedure Name Priority Date/Time Associated Diagnosis Comments TROPONIN T HIGH-SENSITIVITY 2-HOUR Timed 01/28/2025 4:[address] ABDOMEN PELVIS W CONTRAST ED 01/28/2025 4:30 PM CDT ECG 12-LEAD STAT 01/28/2025 2:40 PM CDT EGFR STAT 01/28/2025 2:38 PM [...] 5:21 AM CDT SCAN - RADIOLOGY/IMAGING 12/06/2024 NC CRITICAL CARE ILL/INJURED PATIENT INIT 30-74 MIN [...] Data last revised 2020. Testing performed by: [address] [address] Trop T hs delta -1 ng/L NEEL SMITH Comment:Testing performed by : [address] [address] Trop T hs interp Insignificant NEEL SMITH Comment:Testing performed by : [address] [address] Blood 01/28/2025 4:34 PM CDT 01/28/2025 4:41 PM CDT us Perez Hayes DO LAB BLOOD ORDERABLES Final Res ult NEEL SMITH [address] [facility] [place] [address] 38 * CT Abdomen Pelvis W Contrast (01/28/2025 [...] Francisco Jesus M.D. KT: MAN Report ID: [id number] Reading Location: [id number] Procedure Note Jose Francisco Jesus MD - [...] Francisco Jesus M.D. KT: KT Report ID: [id number] Reading Location: [place] [address] PROCEDURES Renee l Result * ECG 12 lead (01/28/2025 2:40 PM CDT) Ventricular Rate EKG/Min 83 BPM [facility] Atrial Rate 83 BPM [facility] NC-Interval (MSEC) 114 ms [facility] QRS-Interval (MSEC) 96 ms [facility] QT-Interval (MSEC) 352 ms [facility] QTc 413 ms [facility] P [place] 68 degrees [facility] R [place] 51 degrees [facility] T [place] 28 degrees [facility] Diagnosis Normal sinus rhythm Normal ECG When compared with ECG of 22-JAN-2025 05:23, Nonspecific T wave abnormality now evident in Inferior leads Confirmed by NOE MARTÍNEZ M.D. ([id number]) on 01/30/2025 1:18:18 PM [facility] 01/28/2025 2:40 PM CDT 01/30/2025 1:18 PM CDT Perez Hayes DO ECG ORDERABLES Final Result [facility] * Troponin T high-sensitivity series (baseline, 2hr, 4hr, 6hr) (01/28/2025 2:38 PM CDT) Trop T hs 7 <=22 ng/L Comment: Interpretive Data For further hscTnT resources including the diagnostic algorithm and an aid in interpretation, copy and paste this link: [email or web address].testcatalog.org/show/[email or web address] Current Interpretive Data last revised 2020. Testing performed by: [facility], [address] [place] [address]., [address] Blood 01/28/2025 2:38 PM CDT 01/28/2025 2:42 PM CDT Perez Hayes DO LAB BLOOD ORDERABLES Final Res ult NEEL [address] [facility] Department of Laboratories [place], [place] [id number] * eGFR (01/28/2025 2:38 PM CDT) eGFR [...] was last reviewed 2021. Testing performed by: [facility], [address] [place] [address]., [address] Blood 01/28/2025 2:38 PM CDT 01/28/2025 2:42 PM CDT us Perez Hayes DO LAB BLOOD ORDERABLES Final Res ult NEEL [address] [facility] Department [place] [address] * (ABNORMAL) Differential, auto (01/28/2025 2:38 PM CDT) Neutrophil abs 11.33(H) 1.50 - 6.50 K/cumm Comment:Testing performed by : [address] [address] Imm gran abs 0.05 0.00 - 0.10 K/cumm NEEL Comment:Testing performed by : [address] [address] Lymphocyte abs 0.97 0.80 - 3.30 K/cumm NEEL Comment:Testing performed by : [address] [address] Monocyte abs 0.76 0.20 - 0.80 K/cumm NEEL Comment:Testing performed by : [address] [address] Eosinophil abs 0.03 0.00 - 0.50 K/cumm NEEL Comment:Testing performed by : [address] [address] Basophil abs 0.04 0.00 - 0.10 K/cumm NEEL Comment:Testing performed by : [address] [address] Neutrophil pct 85.9 % NEEL Comment: Interpretive Data Percent cell count reference ranges are not reported, since discordance with absolute values may lead to misinterpretation of CBC data. Current Interpretive Data was last revised on 2017. Testing performed by: [address] [address] Imm gran pct 0.4 % NEEL Comment: Interpretive Data Percent cell count reference ranges are not reported, since discordance with absolute values may lead to misinterpretation of CBC data. Current Interpretive Data was last revised on 2017. Testing performed by: [address] [address] Lymphocyte pct 7.4 % [facility] Comment: Interpretive Data Percent cell count reference ranges are not reported, since discordance with absolute values may lead to misinterpretation of CBC data. Current Interpretive Data was last revised on 2017. Testing performed by: [address] [address] Monocyte pct 5.8 % [facility] Comment: Interpretive Data Percent cell count reference ranges are not reported, since discordance with absolute values may lead to misinterpretation of CBC data. Current Interpretive Data was last revised on 2017. Testing performed by: [address] [address] Eosinophil pct 0.2 % [facility] Comment: Interpretive Data Percent cell count reference ranges are not reported, since discordance with absolute values may lead to misinterpretation of CBC data. Current Interpretive Data was last revised on 2017. Testing performed by: [address] [address] Basophil pct 0.3 % [facility] Comment: Interpretive Data Percent cell count reference ranges are not reported, since discordance with absolute values may lead to misinterpretation of CBC data. Current Interpretive Data was last revised on 2017. Testing performed by: [address] [address] Blood 01/28/2025 2:38 PM CDT 01/28/2025 2:42 PM CDT us Perez Hayes DO LAB BLOOD ORDERABLES Final Res ult NEEL SMITH [address] [facility] Department [place] [address] * (ABNORMAL) Urinalysis reflex to microscopic and culture Urine (01/28/2025 2:38 PM CDT) Color, ur Yellow Yellow Comment:Testing performed by : [address] [address] Clarity, ur Cloudy(A) Clear NEEL Comment:Testing performed by : [address] [address] Specific gravity, ur 1.012 1.003 - 1.030 NEEL Comment:Testing performed by : [address], [place]., [address] pH, urine 8.0 NEEL Comment: Interpretive Data U rine pH is affected by diet, medications, systemic acid-base disturbances, and renal tubular function. pH may affect urinary stone formation. For example, urine pH below 6.0 may help reduce the tendency for calcium phosphate stones and pH greater than 6.0 may reduce the tendency for uric acid stone formation. Source: [facility] [employer] Current Interpretive Data was last revised on 2017 Testing performed by: [address] [address] Protein, ur ql Negative Negative NEEL Comment:Testing performed by : [address] [address] Glucose, ur ql Negative Negative NEEL Comment:Testing performed by : [address] [address] Ketones, ur Negative Negative NEEL Comment:Testing performed by : [address] [address] Bilirubin, ur Negative Negative NEEL Comment:Testing performed by : [address] [address] Blood, ur Negative Negative NEEL Comment:Testing performed by : [address] [address] Urobilinogen, ur <2.0 <2.0 mg/dL NEEL Comment:Testing performed by : [address] [address] Nitrite, ur Negative Negative NEEL Comment:Testing performed by : [address] [address] Leukocyte esterase, ur Negative Negative NEEL Comment:Testing performed by : [address] [address] UA reflex comment Reflex conditions for microscopic UA and culture not met. NEEL SMITH Comment:Testing performed by : [address] [address] Urine 01/28/2025 2:38 PM CDT 01/28/2025 2:42 PM CDT us Perez Hayes DO LAB MICROBIOLOGY - GENERAL ORD ERABLES Final Result NEEL [address] [facility] Department [place] [address] * (ABNORMAL) CBC with auto differential (01/28/2025 2:38 PM CDT) WBC 13.18(H) 3.80 - 9.90 K/cumm Comment:Testing performed by : [address] [address] Hgb 14.6 13.0 - 17.5 g/dL NEEL Comment:Testing performed by : [address] [address] Hct 43.5 38.9 - 50.3 % NEEL Comment:Testing performed by : [address] [address] Plt 258 150 - 400 K/cumm NEEL Comment:Testing performed by : [address] [address] MPV 10.0 9.1 - 12.3 fL NEEL Comment:Testing performed by : [address] [address] RBC 4.95 4.30 - 5.80 M/cumm NEEL Comment:Testing performed by : [address] [address] MCV 87.9 81.3 - 96.4 fL NEEL Comment:Testing performed by : [address] [address] MCH 29.5 27.1 - 33.3 pg NEEL SMITH Comment:Testing performed by : [address] [address] MCHC 33.6 32.3 - 35.7 g/dL NEEL SMITH Comment:Testing performed by : [address] [address] RDW CV 14.8 11.1 - 14.9 % NEEL SMITH Comment:Testing performed by : [address] [address] RDW SD 47.5 35.7 - 48.1 fL NEEL Comment:Testing performed by : [address] [address] NRBC abs 0.00 0.00 - 0.01 K/cumm NEEL Comment:Testing performed by : [address] [address] Blood Venous blood specimen / Unknown 01/28/2025 2:38 PM CDT 01/28/2025 2:42 PM CDT Perez Hayes DO LAB BLOOD ORDERABLES Final Res ult Performing Organization Address City/[facility] Co de Phone Number [address] [place] [address] * Lipase (01/28/2025 2:38 PM CDT) Lipase 92 10 - 99 Units/L Comment:Testing performed by : [address] [address] Blood Venous blood specimen / Unknown 01/28/2025 2:38 PM CDT 01/28/2025 2:42 PM CDT Perez Hayes DO LAB BLOOD ORDERABLES Final Res ult Performing Organization Address City/[facility] Co de Phone Number [address] [place] [address] * Comprehensive metabolic panel (01/28/2025 2:38 PM CDT) Sodium 142 135 - 145 mmol/L Comment:Testing performed by : [address] [address] Potassium, pl 4.0 3.3 - 4.9 mmol/L [facility] Comment:Testing performed by : [address], [place]., [address] Chloride 106 97 - 110 mmol/L [facility] Comment:Testing performed by : [address], [place]., [address] CO2 22 22 - 32 mmol/L [facility] Comment:Testing performed by : [address], [place]., [address] Anion gap 14 2 - 15 mmol/L [facility] Comment:Testing performed by : [address], [place]., [address] BUN 7 6 - 25 mg/dL [facility] Comment:Testing performed by : [address], [place]., [address] Creatinine 0.90 0.80 - 1.30 mg/dL [facility] Comment:Testing performed by : [address] [address] Glucose 136 70 - 199 mg/dL [facility] Comment: Interpretive Data Fasting glucose [...] was last revised 2022. Testing performed by: [address] [address] Calcium 9.6 8.5 - 10.3 mg/dL [facility] Comment:Testing performed by : [address] [address] Bilirubin, total 0.5 0.1 - 1.2 mg/dL [facility] Comment:Testing performed by : [address], [place]., [address] Protein, pl 6.9 6.5 - 8.5 g/dL [facility] Comment:Testing performed by : [facility], [address] [place] [address]., [address] Albumin 4.6 3.5 - 5.0 g/dL NEEL Comment:Testing performed by : [address], [address] Alk phos 87 40 - 130 Units/L NEEL Comment:Testing performed by : [address], [address] ALT 13 7 - 55 Units/L NEEL Comment:Testing performed by : [address], [address] AST 15 10 - 50 Units/L NEEL Comment:Testing performed by : [address], [address] Blood 01/28/2025 2:38 PM CDT 01/28/2025 2:42 PM CDT us Perez Hayes DO LAB BLOOD ORDERABLES Final Res ult Performing Organization Address City/[facility]/ZIP Co de Phone Number QUINT[address] [place] [address] * Troponin T high-sensitivity 4-hour (01/22/2025 9:04 [...] BLOOD ORDERABLES Final Result Performing Organization Address City/[facility]/ZIP Co de Phone Number [address] [place] [address] * CT Abdomen Pelvis W Contrast (01/22/2025 [...] rates pain 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 T: Report ID: [id number] Reading Location: [place] [address] Freddy Yao DO IMG CT PROCEDURES Final Res ult * Troponin T high-sensitivity 2-hour (01/22/2025 7:02 AM CDT) Pathologist [facility] Trop T hs <6 <=22 ng/L Comment: Interpretive Data For further hscTnT resources including the diagnostic algorithm and an aid in interpretation, copy and paste this link: [email or web address].testcatalog.org/show/[email or web address] Current Interpretive Data last revised 2020. Trop T hs delta 0 ng/L NEEL SMITH Trop T hs interp Insignificant NEEL SMITH Blood 01/22/2025 7:02 AM CDT 01/22/2025 7:04 AM CDT Freddy Bell MD LAB BLOOD ORDERABLES Final Result NEEL [address] [facility] Department [place] [address] * Sepsis Lactate w/ Reflex (01/22/2025 7:02 AM CDT) Pathologist [facility] Sepsis Lactate 1.1 0.7 - 2.0 mmol/L Blood 01/22/2025 7:02 AM CDT 01/22/2025 7:04 AM CDT Freddy Cedric Abbeg DO LAB BLOOD ORDERABLES Final Result Performing Organization Address [place]/[facility] Co de Phone Number NEEL [address] [employer] [place] [address] * ECG 12 lead (01/22/2025 5:23 AM CDT) Ventricular Rate EKG/Min 79 BPM [facility] Atrial Rate 79 BPM [facility] NC-Interval (MSEC) 116 ms [facility] QRS-Interval (MSEC) 104 ms [facility] QT-Interval (MSEC) 374 ms [facility] QTc 428 ms [facility] P [place] 65 degrees [facility] R [place] 62 degrees [facility] T [place] 66 degrees [facility] Diagnosis Normal sinus rhythm with sinus arrhythmia Incomplete right bundle branch block ST-changes When compared with ECG of 25-NOV-2024 23:02, Significant changes have occurred Confirmed by SULTAN DE JESUS M.D. ([id number]) on 01/22/2025 8:44:23 AM [facility] 01/22/2025 5:23 AM CDT 01/22/2025 8:44 AM CDT Freddy Yao DO ECG ORDERABLES Final Resul t Performing Organization Address [facility] Phone Number [facility] * Troponin T high-sensitivity series (baseline, 2hr, 4hr, 6hr) (01/22/2025 5:21 AM CDT) Pathologist [facility] Trop T hs 6 <=22 ng/L Comment: Interpretive Data For further hscTnT resources including the diagnostic algorithm and an aid in interpretation, copy and paste this link: [email or web address].testcatalog.org/show/[email or web address] Current Interpretive Data last revised 2020. Blood 01/22/2025 5:21 AM CDT 01/22/2025 5:25 AM CDT Freddy Yao DO LAB BLOOD ORDERABLES Final Result Performing Organization Address [place]/[facility] Co de Phone Number NEEL [facility] Department [place] [address] * eGFR (01/22/2025 5:21 AM CDT) [facility] eGFR 84 >=60 mL/min/1. 73 m2 Comment: [...] DO LAB BLOOD ORDERABLES Final Result NEEL [address] [facility] Department [place] [address] * (ABNORMAL) Differential, auto (01/22/2025 5:21 AM CDT) Pathologist [facility] Neutrophil abs 15.14(H) 1.50 - 6.50 K/cumm Imm gran abs 0.11(H) 0.00 - 0.10 K/cumm [facility] Lymphocyte abs 2.97 0.80 - 3.30 K/cumm [facility] Monocyte abs 1.83(H) 0.20 - 0.80 K/cumm [facility] Eosinophil abs 0.17 0.00 - 0.50 K/cumm [facility] Basophil abs 0.10 0.00 - 0.10 K/cumm [facility] Neutrophil pct 74.6 % [facility] Comment: Interpretive Data Percent cell count reference ranges are not reported, since discordance with absolute values may lead to misinterpretation of CBC data. Current Interpretive Data was last revised on 2017. Imm gran pct 0.5 % [facility] Comment: Interpretive Data Percent cell count reference ranges are not reported, since discordance with absolute values may lead to misinterpretation of CBC data. Current Interpretive Data was last revised on 2017. Lymphocyte pct 14.6 % [facility] Comment: Interpretive Data Percent cell count reference ranges are not reported, since discordance with absolute values may lead to misinterpretation of CBC data. Current Interpretive Data was last revised on 2017. Monocyte pct 9.0 % [facility] Comment: Interpretive Data Percent cell count reference ranges are not reported, since discordance with absolute values may lead to misinterpretation of CBC data. Current Interpretive Data was last revised on 2017. Eosinophil pct 0.8 % [facility] Comment: Interpretive Data Percent cell count reference ranges are not reported, since discordance with absolute values may lead to misinterpretation of CBC data. Current Interpretive Data was last revised on 2017. Basophil pct 0.5 % [facility] Comment: Interpretive Data Percent cell count reference ranges are not reported, since discordance with absolute values may lead to misinterpretation of CBC data. Current Interpretive Data was last revised on 2017. Blood 01/22/2025 5:21 AM CDT 01/22/2025 5:25 AM CDT Freddy Yao DO LAB BLOOD ORDERABLES Final Result [facility] [address] [facility] Department [place] [address] * (ABNORMAL) Urinalysis reflex to microscopic and culture Urine (01/22/2025 5:21 AM CDT) Color, ur Yellow Yellow Clarity, ur Cloudy(A) Clear [facility] Specific gravity, ur 1.021 1.003 - 1.030 [facility] pH, urine 6.5 [facility] Comment: Interpretive Data U rine pH is affected by diet, medications, systemic acid-base disturbances, and renal tubular function. pH may affect urinary stone formation. For example, urine pH below 6.0 may help reduce the tendency for calcium phosphate stones and pH greater than 6.0 may reduce the tendency for uric acid stone formation. Source: [facility] Current Interpretive Data was last revised on 2017 Protein, ur ql Negative Negative [facility] Glucose, ur ql Negative Negative [facility] Ketones, ur Negative Negative [facility] Bilirubin, ur Negative Negative [facility] Blood, ur Negative Negative [facility] Urobilinogen, ur 2.0(A) <2.0 mg/dL [facility] Nitrite, ur Negative Negative [facility] Leukocyte esterase, ur Negative Negative [facility] UA reflex comment Reflex conditions for microscopic UA and culture not met. [facility] Urine 01/22/2025 5:21 AM CDT 01/22/2025 5:25 AM CDT Freddy Yao DO LAB MICROBIOLOGY - GENERAL ORDERABLES Final Result [facility] [address] [facility] Department of Laboratories [place], [place] [id number] * (ABNORMAL) CBC with auto differential (01/22/2025 5:21 AM CDT) WBC 20.32(H) 3.80 - 9.90 K/cumm Hgb 15.4 13.0 - 17.5 g/dL [facility] Hct 46.5 38.9 - 50.3 % [facility] Plt 300 150 - 400 K/cumm [facility] MPV 9.8 9.1 - 12.3 fL [facility] RBC 5.28 4.30 - 5.80 M/cumm [facility] MCV 88.1 81.3 - 96.4 fL [facility] MCH 29.2 27.1 - 33.3 pg [facility] MCHC 33.1 32.3 - 35.7 g/dL [facility] RDW CV 14.8 11.1 - 14.9 % [facility] RDW SD 47.6 35.7 - 48.1 fL [facility] NRBC abs 0.00 0.00 - 0.01 K/cumm [facility] Blood Venous blood specimen / Unknown 01/22/2025 5:21 AM CDT 01/22/2025 5:25 AM CDT Freddy Yao DO LAB BLOOD ORDERABLES Final Result [facility] [address] [facility] Department [place] [address] * (ABNORMAL) Drugs of Abuse Screen, Urine without Confirmation (01/22/2025 5:21 AM CDT) Pathologist [facility] Amphetamine, ur [...] 2022. Barbiturates, ur Not Detected CutOff 200ng/mL [facility] Comment: Interpretive Data - Barbiturates: Samples containing greater than 200 ng/mL secobarbital or other cross-reacting barbiturate compounds are reported as positive. False positive and false negative results are possible. Confirmatory testing required for definitive results. Current Interpretive Data was last reviewed 2022. Benzodiazepines, ur Not Detected CutOff 100ng/mL [facility] Comment: Interpretive Data - Benzodiazepines: Samples containing greater than 100 ng/mL nordiazepam or other cross-reacting compounds are reported as positive. False positive and false negative results are possible. Confirmatory testing required for definitive results. Current Interpretive Data was last reviewed 2022. Cannabinoids, ur Screen Positive, presumptive (A) CutOff 50 ng/mL [facility] Comment: Interpretive Data - Cannabinoids: Samples containing greater than 50 ng/mL delta-9 THC -COOH or other cross- reacting compounds are reported as positive. False positive and false negative results are possible. Confirmatory testing required for definitive results. Current Interpretive Data was last reviewed 2022. Cocaine, ur Not Detected CutOff 150ng/mL [facility] Comment: Interpretive Data - Cocaine: Samples containing greater than 150 ng/mL benzoylecgonine or other cross- reacting compounds are reported as positive. False positive and false negative results are possible. Confirmatory testing required for definitive results. Current Interpretive Data was last reviewed 2022. Fentanyl, Ur Not Detected CutOff 5 ng/mL [facility] Comment: Interpretive Data - Fentanyl: Samples containing greater than 5 ng/mL norfentanyl, fentanyl, or other cross-reacting fentanyl compounds are reported as positive. False positive and false negative results are possible. Confirmatory testing required for definitive results. Current Interpretive Data was last reviewed 2023. Methadone, ur Not Detected CutOff 300ng/mL [facility] Comment: Interpretive Data - Methadone: Samples containing greater than 300 ng/mL d,l-methadone or other cross-reacting compounds are reported as positive. False positive and false negative results are possible. Confirmatory testing required for definitive results. Current Interpretive Data was last reviewed 2022. Opiates, ur Not Detected CutOff 300ng/mL [facility] Comment: Interpretive Data - Opiates: Samples containing greater than 300 ng/mL morphine or other cross-reacting compounds are reported as positive. False positive and false negative results are possible. Confirmatory testing required for definitive results. Current Interpretive Data was last reviewed 2022. Oxycodone, ur Not Detected CutOff 100ng/mL [facility] Comment: Interpretive Data - Oxycodone: Samples containing greater than 100 ng/mL oxycodone or other cross-reacting compounds are reported as positive. False positive and false negative results are possible. Confirmatory testing required for definitive results. Current Interpretive Data was last reviewed 2022. Phencyclidine, ur Not Detected CutOff 25 ng/mL [facility] Comment: Interpretive Data - Phencyclidine: Samples containing [...] AM CDT 01/22/2025 5:25 AM CDT Narrative [facility] - 01/22/2025 5:54 AM CDT Drug of Abuse screening is performed by immunoassay for medical purposes only. This is not to be used for Pain Management purposes. Freddy Yao LAB URINE ORDERABLES Final Result Performing Organization Address [place]/[facility] de Phone Number [address] [address] * Lipase (01/22/2025 5:21 AM CDT) Pathologist [facility] Lipase 60 10 - 99 Units/L Blood Venous blood specimen / Unknown 01/22/2025 5:21 AM CDT 01/22/2025 5:25 AM CDT Freddy Yao LAB BLOOD ORDERABLES Final Result Performing Organization Address [place]/[facility] de Phone Number [address] [address] * Comprehensive metabolic panel (01/22/2025 5:21 AM CDT) [facility] Sodium 143 135 - 145 mmol/L Potassium, pl 3.7 3.3 - 4.9 mmol/L [facility] Chloride 103 97 - 110 mmol/L [facility] CO2 26 22 - 32 mmol/L [facility] Anion gap 14 2 - 15 mmol/L [facility] BUN 8 6 - 25 mg/dL [facility] Creatinine 1.11 0.80 - 1.30 mg/dL [facility] Glucose 140 70 - 199 mg/dL [facility] Comment: Interpretive Data Fasting glucose [...] 2022. Calcium 9.9 8.5 - 10.3 mg/dL [facility] Bilirubin, total 0.5 0.1 - 1.2 mg/dL [facility] Protein, pl 7.2 6.5 - 8.5 g/dL [facility] Albumin 4.6 3.5 - 5.0 g/dL [facility] Alk phos 90 40 - 130 Units/L [facility] ALT 16 7 - 55 Units/L [facility] AST 21 10 - 50 Units/L [facility] Blood 01/22/2025 5:21 AM CDT 01/22/2025 5:25 AM CDT Freddy Yao DO LAB BLOOD ORDERABLES Final Result [facility] [address] [facility] Department [place] [address] * SCAN - RADIOLOGY/IMAGING (12/06/2024) Anatomical Region Laterality Modality Other us Provider Scanning Final Result * NC CRITICAL CARE ILL/INJURED PATIENT INIT 30-74 MIN [...] LAB BLOOD ORDERABLES Final R esult [facility] [address] Department [place] [address] [phone] * (ABNORMAL) Differential, auto (12/01/2024 1:49 AM CDT) Neutrophil abs 8.27(H) 1.50 - 6.50 K/cumm Imm gran abs 0.04 0.00 - 0.10 K/cumm [facility] Lymphocyte abs 1.58 0.80 - 3.30 K/cumm [facility] Monocyte abs 0.97(H) 0.20 - 0.80 K/cumm [facility] Eosinophil abs 0.03 0.00 - 0.50 K/cumm [facility] Basophil abs 0.05 0.00 - 0.10 K/cumm [facility] Neutrophil pct 75.5 % [facility] Comment: Interpretive Data Percent cell count reference ranges are not reported, since discordance with absolute values may lead to misinterpretation of CBC data. Current Interpretive Data was last revised on 2017. Imm gran pct 0.4 % [facility] Comment: Interpretive Data Percent cell count reference ranges are not reported, since discordance with absolute values may lead to misinterpretation of CBC data. Current Interpretive Data was last revised on 2017. Lymphocyte pct 14.4 % [facility] Comment: Interpretive Data Percent cell count reference ranges are not reported, since discordance with absolute values may lead to misinterpretation of CBC data. Current Interpretive Data was last revised on 2017. Monocyte pct 8.9 % [facility] Comment: Interpretive Data Percent cell count reference ranges are not reported, since discordance with absolute values may lead to misinterpretation of CBC data. Current Interpretive Data was last revised on 2017. Eosinophil pct 0.3 % [facility] Comment: Interpretive Data Percent cell count reference ranges are not reported, since discordance with absolute values may lead to misinterpretation of CBC data. Current Interpretive Data was last revised on 2017. Basophil pct 0.5 % [facility] Comment: Interpretive Data Percent cell count reference ranges are not reported, since discordance with absolute values may lead to misinterpretation of CBC data. Current Interpretive Data was last revised on 2017. Blood 12/01/2024 1:49 AM CDT 12/01/2024 2:08 AM CDT Domenic Arias MD LAB BLOOD ORDERABLES Final R esult Performing Organization Address City/[facility]/ZIP Co de Phone Number [facility] [address] [place] [address] * (ABNORMAL) CBC with auto differential (12/01/2024 1:49 AM CDT) [facility] WBC 10.94(H) 3.80 - 9.90 K/cumm Hgb 13.5 13.0 - 17.5 g/dL [facility] Hct 40.4 38.9 - 50.3 % [facility] Plt 242 150 - 400 K/cumm [facility] MPV 10.5 9.1 - 12.3 fL [facility] RBC 4.59 4.30 - 5.80 M/cumm [facility] MCV 88.0 81.3 - 96.4 fL [facility] MCH 29.4 27.1 - 33.3 pg [facility] MCHC 33.4 32.3 - 35.7 g/dL [facility] RDW CV 15.7(H) 11.1 - 14.9 % [facility] RDW SD 50.5(H) 35.7 - 48.1 fL [facility] NRBC abs 0.00 0.00 - 0.01 K/cumm [facility] Blood 12/01/2024 1:49 AM CDT 12/01/2024 2:08 AM CDT Domenic Arias MD LAB BLOOD ORDERABLES Final R esult [facility] [address] Department [employer] [place], [place] [id number] * Lipase (12/01/2024 1:49 AM CDT) Pathologist [facility] Lipase 23 10 - 99 Units/L Blood 12/01/2024 1:49 AM CDT 12/01/2024 2:08 AM CDT us Domenic Arias MD LAB BLOOD ORDERABLES Final R esult [facility] [address] Department [place] [address] * (ABNORMAL) Comprehensive metabolic panel (12/01/2024 1:49 AM CDT) Sodium 142 135 - 145 mmol/L Potassium, pl 4.2 3.3 - 4.9 mmol/L [facility] Chloride 106 97 - 110 mmol/L [facility] CO2 23 22 - 32 mmol/L [facility] Anion gap 13 2 - 15 mmol/L [facility] BUN 6 6 - 25 mg/dL [facility] Creatinine 0.86 0.80 - 1.30 mg/dL [facility] Glucose 99 70 - 199 mg/dL [facility] Comment: Interpretive Data Fasting glucose >/= [...] 2022. Calcium 9.3 8.5 - 10.3 mg/dL [facility] Bilirubin, total 0.6 0.1 - 1.2 mg/dL [facility] Protein, pl 6.2(L) 6.5 - 8.5 g/dL [facility] Albumin 4.0 3.5 - 5.0 g/dL [facility] Alk phos 76 40 - 130 Units/L [facility] ALT 17 7 - 55 Units/L [facility] AST 20 10 - 50 Units/L [facility] Blood 12/01/2024 1:49 AM CDT 12/01/2024 2:08 AM CDT Domenic Arias MD LAB BLOOD ORDERABLES Final R esult Performing Organization Address [place]/[facility] Co de Phone Number [facility] [address] Department [place] [address] * ECG 12 lead (11/30/2024 10:57 PM CDT) 11/30/2024 10:5 7 PM CDT Narrative [facility] - 12/01/2024 7:47 AM CDT Vent Rate: 64 bpm RR Interval: 926 msec NC Interval: 91 msec QRS Duration: 104 msec QT Interval: 382 msec QTC Interval: 392 msec P-R-T [place]: 12 - 72 - 72 degrees IMPRESSION: SINUS RHYTHM WITH SINUS ARRHYTHMIA WITH SHORT NC INTERVAL INCOMPLETE RIGHT BUNDLE BRANCH BLOCK BORDERLINE ECG Electronically Signed By: Mich Quintana MD PhD Domenic Arias MD ECG ORDERABLES Final Result Performing Organization Address [facility] de Phone Number [facility] Assay [employer] [facility] * CT Abdomen Pelvis [...] clear. Heart size normal. No effusion. LIVER/BILIARY: Effg-ld-ogpreflv steatosis. Unchanged pneumobilia. GALLBLADDER: Absent. SPLEEN: Normal. [...] Aryan Jovel M.D. AR: GIOVANNA Report ID: [id number] Reading Location: [id number] Procedure Note Aryan Jovel MD - 11/26/2024 [...] clear. Heart size normal. No effusion. LIVER/BILIARY: Nbcv-vs-ukzmmprc steatosis. Unchanged pneumobilia. GALLBLADDER: Absent. SPLEEN: Normal. [...] Aryan Jovel M.D. AR: GIOVANNA Report ID: [id number] Reading Location: [place] [address] us Blue Warren MD IMG CT PROCEDURES F inal Result * Troponin T high-sensitivity 2-hour (11/26/2024 1:13 AM CDT) Trop T hs 8 <=22 ng/L Comment: Interpretive Data For further hscTnT resources including the diagnostic algorithm and an aid in interpretation, copy and paste this link: https://nrl.testcatalog.org/show/hsTrop Current Interpretive Data last revised 2020. Testing performed by: [address] [address] Trop T hs delta -3 ng/L [facility] Comment:Testing performed by : [address] [address] Trop T hs interp Insignificant [facility] Comment:Testing performed by : [address] [address] Blood 11/26/2024 1:13 AM CDT 11/26/2024 1:25 AM CDT us Blue Warren MD LAB BLOOD ORDERABLE S Final Result [facility] [address] [facility] Department [place] [address] * Urinalysis reflex to microscopic and culture Urine (11/25/2024 11:13 PM CDT) Color, ur Yellow Yellow Comment:Testing performed by : [address] [address] Clarity, ur Clear Clear [facility] Comment:Testing performed by : [address] [address] Specific gravity, ur 1.020 1.003 - 1.030 [facility] Comment:Testing performed by : [address] [address] pH, urine 6.0 [facility] Comment: Interpretive Data U rine pH is affected by diet, medications, systemic acid-base disturbances, and renal tubular function. pH may affect urinary stone formation. For example, urine pH below 6.0 may help reduce the tendency for calcium phosphate stones and pH greater than 6.0 may reduce the tendency for uric acid stone formation. Source: [facility] [employer] Current Interpretive Data was last revised on 2017 Testing performed by: [facility], [address] [place] [address], [place]., [address] Protein, ur ql Negative Negative [facility] Comment:Testing performed by : [address], [place]., [address] Glucose, ur ql Negative Negative [facility] Comment:Testing performed by : [address], [place]., [address] Ketones, ur Negative Negative [facility] Comment:Testing performed by : [address] [address] Bilirubin, ur Negative Negative [facility] Comment:Testing performed by : [address], [place]., [address] Blood, ur Negative Negative [facility] Comment:Testing performed by : [address] [address] Urobilinogen, ur <2.0 <2.0 mg/dL [facility] Comment:Testing performed by : [address] [address] Nitrite, ur Negative Negative [facility] Comment:Testing performed by : [address] [address] Leukocyte esterase, ur Negative Negative [facility] Comment:Testing performed by : [address], [place]., [address] UA reflex comment Reflex conditions for microscopic UA and culture not met. [facility] Comment:Testing performed by : [address], [place]., [address] Urine 11/25/2024 11:1 3 PM CDT 11/25/2024 11:24 PM CDT us Blue O'Brien Warren MD LAB MICROBIOLOGY - GENERAL ORDERABLES Final Result Performing Organization Address City/[facility] Co de Phone Number NEEL [address] [place] [place] [address] * Troponin T high-sensitivity series (baseline, 2hr, 4hr, 6hr) (11/25/2024 11:06 PM CDT) Trop T hs 11 <=22 ng/L Comment: Interpretive Data For further hscTnT resources including the diagnostic algorithm and an aid in interpretation, copy and paste this link: https://nrl.testcatalog.org/show/hsTrop Current Interpretive Data last revised 2020. Testing performed by: [facility], [address] [place] [address]., [address] Blood 11/25/2024 11:0 6 PM CDT 11/25/2024 11:24 PM CDT Blue Warren MD LAB BLOOD ORDERABLE S Final Result Performing Organization Address [place]/[facility] Co de Phone Number NEEL [address] [place] [employer] [place] [address] * eGFR (11/25/2024 11:06 PM CDT) eGFR [...] was last reviewed 2021. Testing performed by: [address] [address] Blood 11/25/2024 11:0 6 PM CDT 11/25/2024 11:24 PM CDT us Blue Warren MD LAB BLOOD ORDERABLE S Final Result [facility] [address] [facility] Department [place] [address] * (ABNORMAL) Differential, auto (11/25/2024 11:06 PM CDT) Neutrophil abs 13.59(H) 1.50 - 6.50 K/cumm Comment:Testing performed by : [address] [address] Imm gran abs 0.11(H) 0.00 - 0.10 K/cumm [facility] Comment:Testing performed by : [address] [address] Lymphocyte abs 1.24 0.80 - 3.30 K/cumm [facility] Comment:Testing performed by : [address] [address] Monocyte abs 0.90(H) 0.20 - 0.80 K/cumm [facility] Comment:Testing performed by : [address] [address] Eosinophil abs 0.02 0.00 - 0.50 K/cumm NE[facility] Comment:Testing performed by : [address] [address] Basophil abs 0.05 0.00 - 0.10 K/cumm [facility] Comment:Testing performed by : [address] [address] Neutrophil pct 85.4 % [facility] Comment: Interpretive Data Percent cell count reference ranges are not reported, since discordance with absolute values may lead to misinterpretation of CBC data. Current Interpretive Data was last revised on 2017. Testing performed by: [address] [address] Imm gran pct 0.7 % [facility] Comment: Interpretive Data Percent cell count reference ranges are not reported, since discordance with absolute values may lead to misinterpretation of CBC data. Current Interpretive Data was last revised on 2017. Testing performed by: [address] [address] Lymphocyte pct 7.8 % [facility] Comment: Interpretive Data Percent cell count reference ranges are not reported, since discordance with absolute values may lead to misinterpretation of CBC data. Current Interpretive Data was last revised on 2017. Testing performed by: [address] [address] Monocyte pct 5.7 % [facility] Comment: Interpretive Data Percent cell count reference ranges are not reported, since discordance with absolute values may lead to misinterpretation of CBC data. Current Interpretive Data was last revised on 2017. Testing performed by: [address] [address] Eosinophil pct 0.1 % [facility] Comment: Interpretive Data Percent cell count reference ranges are not reported, since discordance with absolute values may lead to misinterpretation of CBC data. Current Interpretive Data was last revised on 2017. Testing performed by: [address] [address] Basophil pct 0.3 % [facility] Comment: Interpretive Data Percent cell count reference ranges are not reported, since discordance with absolute values may lead to misinterpretation of CBC data. Current Interpretive Data was last revised on 2017. Testing performed by: [address] [address] Blood 11/25/2024 11:0 6 PM CDT 11/25/2024 11:24 PM CDT us Blue Warren MD LAB BLOOD ORDERABLE S Final Result [facility] [address] [facility] Department [place] [address] * (ABNORMAL) CBC with auto differential (11/25/2024 11:06 PM CDT) [facility] WBC 15.91(H) 3.80 - 9.90 K/cumm Comment:Testing performed by : [address] [address] Hgb 15.1 13.0 - 17.5 g/dL NE[facility] Comment:Testing performed by : [address], [address] Hct 44.2 38.9 - 50.3 % [facility] Comment:Testing performed by : [address], [address] Plt 300 150 - 400 K/cumm [facility] Comment:Testing performed by : [address] [address] MPV 9.7 9.1 - 12.3 fL [facility] Comment:Testing performed by : [address], [address] RBC 5.26 4.30 - 5.80 M/cumm [facility] Comment:Testing performed by : [address] [address] MCV 84.0 81.3 - 96.4 fL [facility] Comment:Testing performed by : [address] [address] MCH 28.7 27.1 - 33.3 pg [facility] Comment:Testing performed by : [address] [address] MCHC 34.2 32.3 - 35.7 g/dL [facility] Comment:Testing performed by : [address], [address] RDW CV 15.2(H) 11.1 - 14.9 % [facility] Comment:Testing performed by : [address] [address] RDW SD 46.3 35.7 - 48.1 fL [facility] Comment:Testing performed by : [address] [address] NRBC abs 0.00 0.00 - 0.01 K/cumm [facility] Comment:Testing performed by : [address] [address] Blood Venous blood specimen / Unknown 11/25/2024 11:06 PM CDT 11/25/2024 11:24 PM CDT Blue Warren MD LAB BLOOD ORDERABLE S Final Result Performing Organization Address City/[facility] Co de Phone Number [facility] [place] [place] [address] * Lipase (11/25/2024 11:06 PM CDT) [facility] Lipase 24 10 - 99 Units/L Comment:Testing performed by : [address] [address] Blood Venous blood specimen / Unknown 11/25/2024 11:06 PM CDT 11/25/2024 11:24 PM CDT us Blue Warren MD LAB BLOOD ORDERABLE S Final Result Performing Organization Address [place]/[facility] de Phone Number [address] [place] [place] [address] * (ABNORMAL) Comprehensive metabolic panel (11/25/2024 11:06 PM CDT) [facility] Sodium 140 135 - 145 mmol/L Comment:Testing performed by : [address] [address] Potassium, pl 4.1 3.3 - 4.9 mmol/L NEEL SMITH Comment:Testing performed by : [address] [address] Chloride 102 97 - 110 mmol/L NEEL SMITH Comment:Testing performed by : [address] [address] CO2 24 22 - 32 mmol/L NEEL SMITH Comment:Testing performed by : [address] [address] Anion gap 14 2 - 15 mmol/L [facility] Comment:Testing performed by : [address] [address] BUN 10 6 - 25 mg/dL NEEL Comment:Testing performed by : [address] [address] Creatinine 1.01 0.80 - 1.30 mg/dL NEEL Comment:Testing performed by : [address] [address] Glucose 115 70 - 199 mg/dL [facility] Comment: Interpretive Data Fasting glucose >/= [...] was last revised 2022. Testing performed by: [address] [address] Calcium 10.5(H) 8.5 - 10.3 mg/dL NEEL Comment:Testing performed by : [address] [address] Bilirubin, total 0.4 0.1 - 1.2 mg/dL NEEL Comment:Testing performed by : [address] [address] Protein, pl 7.4 6.5 - 8.5 g/dL NEEL Comment:Testing performed by : [address] [address] Albumin 4.5 3.5 - 5.0 g/dL NEEL Comment:Testing performed by : [address] [address] Alk phos 89 40 - 130 Units/L NEEL Comment:Testing performed by : [address] [address] ALT 19 7 - 55 Units/L NEEL Comment:Testing performed by : [facility], [address] [place] [address]., [address] AST 21 10 - 50 Units/L NEEL Comment:Testing performed by : [facility], [address] [place] [address]., [address] Blood 11/25/2024 11:0 6 PM CDT 11/25/2024 11:24 PM CDT us Blue Warren MD LAB BLOOD ORDERABLE S Final Result Performing Organization Address City/[facility]/ZIP Co de Phone Number [facility] [address] [facility] [facility] Department [place] [address] * ECG 12 lead (11/25/2024 11:02 PM CDT) Pathologist [facility] Ventricular Rate EKG/Min 74 BPM [facility] Atrial Rate 74 BPM [facility] NC-Interval (MSEC) 80 ms [facility] QRS-Interval (MSEC) 96 ms [facility] QT-Interval (MSEC) 354 ms [facility] QTc 392 ms [facility] P [place] -18 degrees [facility] R [place] 32 degrees [facility] T [place] 56 degrees [facility] Diagnosis Sinus rhythm with sinus arrhythmia with short NC Otherwise normal ECG When compared with ECG of 13-OCT-2024 03:54, No significant change was found Confirmed by DARIEL CARLOS M.D. ([id number]) on 11/26/2024 10:02:21 PM [facility] 11/25/2024 11:0 2 PM CDT 11/26/2024 10:02 PM CDT us Blue Warren MD ECG ORDERABLES Fin al Result Performing Organization Address City/[facility]/ZIP Co de Phone Number [facility] from Last 3 Months Insurance IDPA [facility] IDRI Advance Directives For more information, please contact: [phone] * Full Code (Latest Code Status on [...] 12:50 PM 11/16/2023 7:54 PM Care Teams Cath Lab Technologist Relationship Specialty Start Date End Date Td Lopez MD [address] [address] PCP - General Family Medicine 11/09/20 Angie Woodard MD [address] [facility] [address] [place] [address] Consulting Physician Gastroenterology 07/17/21 Vimal Woodruff MD [address] [facility] [address] [place] [address] Consulting Physician Gastroenterology 02/10/22
== END 2025-01-31 22:23 | disposition left against medical advice (07) ==
LOC: ANHED 22:13
PROVIDERS: PCP Family Medicine
DX: R11.10 Vomiting, unspecified (principal)
CPT/HCPCS: 99199

== ENCOUNTER 2025-02-01 20:16 | Emergency (ER) | payer MEDICAID, SELFPAY ==
[2025-02-01] VITALS (12 sets, daily range): BP systolic 125–175; BP diastolic 82–95; PULSE 63–93; RESP 8–21; TEMP 36.7; O2SAT 97
[2025-02-01 20:46] LABS: Hematocrit 43.4 % (42.0-52.0); Hemoglobin 14.5 g/dL (14.0-18.0); Immature Granulocyte Percent A 0.3 % (0-0.5); Lymphocytes Absolute Auto 2.36 K/mm3 (0.9-3.2); Mean Corpuscular HGB Conc 33.4 g/dl (32-36); Mean Corpuscular Hemoglobin 29.4 pg (26-34); Mean Corpuscular Volume 88.0 fl (80-100); Nucleated Red Blood Cells Absolute Auto 0.000 K/mm3 (0.0-0.012); Nucleated Red Blood Cells Perc 0.0 % (0.0-0.2); Platelet Count Result 286 k/mm3 (150-375); Red Blood Count 4.93 M/mm3 (4.6-6.20); White Blood Count 11.5 K/mm3 (4.5-10.0)
[2025-02-01] MEDS: FAMOTIDINE 20 MG/2 ML VIAL IV PUSH (20:55)
[2025-02-01 20:56] LABS: Alanine Aminotransferase 19 U/L (6-50); Albumin Level 4.4 g/dL (3.5-5.1); Alkaline Phosphatase 86 U/L (38-126); Anion Gap 8 mmol/L (4-12); Aspartate Amino Transferase 31 U/L (17-59); Bilirubin,Total 0.7 mg/dL (0.2-1.3); Blood Urea Nitrogen 11 mg/dL (9-20); Calcium 9.3 mg/dL (8.4-10.2); Carbon Dioxide 25 mmol/L (22-30); Chloride 105 mmol/L (98-107); Estimated CRCL calculation 87 ml/min; Estimated Glomerular Filt Rate > 60; Glucose 109 mg/dL (65-110); Lipase 370 U/L (23-300); Potassium 3.9 mmol/L (3.4-5.0); Sodium 138 mmol/L (137-145); Total Protein 7.4 g/dL (6.3-8.2)
[2025-02-01 21:08] LABS: Add Urine Microscopic? YES; Appearance Urine Turbid (Clear); Glucose Urine UA Negative (Negative); Leukocyte Esterase Ur Negative LEU/UL (Negative); Nitrate Urine Negative (Negative); Non Pathogenic Casts 0-2; Specific Grav Ur 1.010 (1.001-1.035)
[2025-02-01] MEDS: LACTATED RINGERS 1,000 ML 999 ML IV CONT (21:29)
--- NOTE | 2025-02-01 21:59 | ED_ITS ---
HPI - Abdominal Pain General Chief Complaint: Abdominal Pain Stated Complaint: nausea and abd pain Time Seen by Provider: 02/01/25 20:30 History of Present Illness HPI narrative: 44-year-old male well known to this emergency department for chronic abdominal pain and chronic pancreatitis. Patient has a history of chronic abdominal pain, cyclic vomiting, marijuana use, previous abdominal surgeries with sphincterotomy and stent from the biliary tree. He has specialists at [facility] for this. Tried to get appointment this week but states that they did not have any openings until next week. Has not had anything at home besides Zofran for symptom control. He is requesting Valium and Dilaudid by name. Patient is well-known to this facility and presented several days ago with similar complaints and had unremarkable workup and discharged home. He has had multiple CT scans over the last several years for similar complaint most recently 1 week ago without any acute abnormalities. Patient states this feels like his pancreatitis. Related Data Home Medications ?Medication ?Instructions ?Recorded ?Confirmed ?Last Taken ?Type apixaban 5 mg tablet (Eliquis) 5 mg PO BID 04/05/23 Unknown History dicyclomine 20 mg tablet 20 mg PO BID 04/05/23 Unknown History Allergies Allergy/AdvReac Type Severity Reaction Status Date / Time metoclopramide Allergy Unknown Muscle Verified 02/01/25 20:37 Spasms haloperidol (From Haldol) AdvReac Mild Muscle Verified 02/01/25 20:37 Spasms doxycycline AdvReac Unknown Gastrointestinal Verified 02/01/25 20:37 Upset sulfamethoxazole AdvReac Unknown Gastrointestinal Verified 02/01/25 20:37 Upset trimethoprim AdvReac Unknown Gastrointestinal Verified 02/01/25 20:37 Upset prochlorperazine (From AdvReac Muscle Verified 02/01/25 20:37 Compazine) Spasms Sulfa (Sulfonamide AdvReac Gastrointestinal Verified 02/01/25 20:37 Antibiotics) Upset Review of Systems 2 Review of Systems: [facility] Past Medical History Medical History Kidney infarction Chronic pancreatitis Cyclical vomiting Anxiety Depression Kidney stones Hypertension GERD (gastroesophageal reflux disease) Cyclic vomiting syndrome IBD (inflammatory bowel disease) Gastroenteritis Pancreatitis Colitis Surgical History Surgical History Hx of cholecystectomy Family History Family History Grandparent Acute myocardial infarction Social History Social History Smoking packs per day: 1 Smoking cigarettes per day: 20.0 Years smoked: 20 Smoking pack-years: 20.00 Smoking status: Current every day smoker Tobacco type: cigarettes Alcohol intake: current Drinks per week: 3 Substance use: current Substance use type: marijuana Last use: PROBABLY ABOUT A WEEK AGOago Lack of Transportation: No Lack of Food: Never True Current Housing: I Have Housing Concerned About Future Housing: No Difficulty Paying Gas/Electric Bills: No Difficulty Paying for Meds: No Currently Unemployed: No Education: High School Diploma/GED Difficulty w/ Childcare or Family Care: No Living arrangements: alone Gender identity (if verbalized by the patient): Male Sexual Orientation (if Verbalized by the Patient): Straight or Heterosexual Spiritual care concerns: No Exam 2 Narrative: GENERAL: [Well-appearing, well-nourished, and in no acute distress.] HEAD: [Normocephalic, atraumatic.] EYES: [PERRLA and EOMI.] ENT: Nares clear, no rhinorrhea or epistaxis. Mucous membranes moist. NECK: Supple. CHEST: [Clear to auscultation. No respiratory distress.] HEART: [Regular rate and rhythm]. No murmur heard. [Normal peripheral pulses.] ABDOMEN: Soft nontender nondistended, no evidence of peritonitis, rigidity or guarding EXTREMITIES: Normal range of motion. [No edema.] SKIN: Warm, dry, no rash. NEURO: [No focal deficits]. Alert and oriented [x3.] PSYCH: [Normal mood and affect.] Course Vital Signs Vital signs: Vital Signs Temperature 36.7 C 02/01/25 20:18 Pulse Rate 90 02/01/25 20:18 Respiratory Rate 20 02/01/25 20:18 Blood Pressure 175/95 H 02/01/25 20:18 Pulse Oximetry 97 02/01/25 20:18 Temperature 36.7 C 02/01/25 20:18 Pulse Rate 86 02/01/25 23:01 Respiratory Rate 15 02/01/25 23:01 Blood Pressure 130/87 02/01/25 23:01 Pulse Oximetry 97 02/01/25 20:18 MDM - Abdominal Pain MDM Narrative Medical decision making narrative: 44-year-old male well known to this emergency department for chronic abdominal pain and chronic pancreatitis. Patient has a history of chronic abdominal pain, cyclic vomiting, marijuana use, previous abdominal surgeries with sphincterotomy and stent from the biliary tree. He has specialists at [facility] for this. Tried to get appointment this week but states that they did not have any openings until next week. Has not had anything at home besides Zofran for symptom control. He is requesting Valium and Dilaudid by name. Patient is well-known to this facility and presented several days ago with similar complaints and had unremarkable workup and discharged home. He has had multiple CT scans over the last several years for similar complaint most recently 1 week ago without any acute abnormalities. Patient states this feels like his pancreatitis. Patient has a soft nontender nondistended abdomen with no signs of peritonitis and overall benign examination. Patient is complaining of pain. Hypertensive but chronic. No tachycardia, fever, hypoxemia or tachypnea. Given patient's benign abdominal examination with chronic abdominal and chronic pancreatitis low suspicion for acute urgent or emergent findings but we will treat his pain and obtain repeat labs. CBC, CMP, lipase urinalysis obtained. No indication for advanced CT images at this time given his multiple radiation doses and multiple unremarkable CT scans with benign abdominal exam presently and reassuring vitals. Patient was given pain medications fluids and re-evaluated. He has a follow-up with GI specialist next week and can be safely discharged upon completion of workup. Laboratories are reassuring. Leukocytosis down trending from prior several days ago. Normal electrolytes. Normal kidney and liver function. Mildly elevated lipase but consistent with his chronic levels. Patient felt better upon reassessment after pain control medications. Safely discharged home given Zofran and Bentyl and has a GI appointment next week. Medical Records Attestation: I reviewed the patient's medical records. Lab Data Attestation: I reviewed the patient's lab results. 02/01/25 20:39 02/01/25 20:39 Labs: Lab Results 02/01/25 02/01/25 Range/Units 20:39 20:57 WBC 11.5 H (4.5-10.0) K/mm3 RBC 4.93 (4.6-6.20) M/mm3 Hgb 14.5 (14.0-18.0) g/dL Hct 43.4 (42.0-52.0) % MCV 88.0 (80-100) fl MCH 29.4 (26-34) pg MCHC 33.4 (32-36) g/dl RDW 15.3 H (11.5-14.5) % Plt Count 286 (150-375) k/mm3 MPV 9.6 (7.4-10.4) fl Immature Gran % (Auto) 0.3 (0-0.5) % Neut % (Auto) 65.4 (45.5-73.1) % Lymph % (Auto) 20.6 (18.3-44.2) % [place] % (Auto) 12.7 H (2.6-8.5) % Eos % (Auto) 0.6 (0-4.4) % Baso % (Auto) 0.4 (0.2-1.2) % Lymph # (Auto) 2.36 (0.9-3.2) K/mm3 [place] # (Auto) 1.5 H (0.1-0.6) K/mm3 Eos # (Auto) 0.1 (0-0.3) K/mm3 Baso # (Auto) 0.1 (0.0-0.1) K/mm3 Abs Immat Gran (auto) 0.04 H (0.00-0.031) K/mm3 Absolute Neuts (auto) 7.5 H (1.3-6.7) K/mm3 Absolute Nucleated RBC 0.000 (0.0-0.012) K/mm3 Nucleated RBC % 0.0 (0.0-0.2) % Sodium 138 (137-145) mmol/L Potassium 3.9 (3.4-5.0) mmol/L Chloride 105 (98-107) mmol/L Carbon Dioxide 25 (22-30) mmol/L Anion Gap 8 (4-12) mmol/L BUN 11 (9-20) mg/dL Creatinine 0.95 (0.7-1.3) mg/dL Estim Creat Clear Calc 87 ml/min Estimated GFR > 60 (59 - ) Glucose 109 (65-110) mg/dL Calcium 9.3 (8.4-10.2) mg/dL Total Bilirubin 0.7 (0.2-1.3) mg/dL AST 31 (17-59) U/L ALT 19 (6-50) U/L Alkaline Phosphatase 86 (38-126) U/L Total Protein 7.4 (6.3-8.2) g/dL Albumin 4.4 (3.5-5.1) g/dL Lipase 370 H (23-300) U/L Urine Color Yellow (Yellow) Urine Appearance Turbid H (Clear) Urine pH 7.5 (5.0-9.0) Ur Specific [place] 1.010 (1.001-1.035) Urine Protein Negative (Negative) mg/dL Urine Glucose (UA) Negative (Negative) mg/dL Urine Ketones Negative (Negative) mg/dL Ur Blood (Man) Negative (Negative) Urine Nitrate Negative (Negative) Urine Bilirubin Negative (Negative) Urine Urobilinogen 0.2 (<2.0) mg/dL Leukocyte Esterase Rfl Negative (Negative) CHRIS/UL Urine RBC 0-2 (0-2) /hpf Urine WBC 0-5 (0-3) /hpf Ur Squamous Epith Cells None seen (Few) /hpf Urine Bacteria None seen /hpf Urine Casts 0-2 Discharge Plan Discharge Clinical Impression: Chronic pancreatitis Patient Disposition: Home Condition: Stable Instructions: Antibiotic Form, Pancreatitis (ED) Additional Instructions: Follow-up with your scientific investigator. Your lipase is mildly elevated and your abdominal pain is chronic in nature with no urgent or emergent concerns found today during evaluation. Return with any worsening symptoms otherwise follow-up with regular care providers. Patient Language: Citizen Of [place] Prescriptions: New dicyclomine 20 mg tablet 20 mg PO TID PRN (Reason: abdominal pain) Qty: 20 0RF ondansetron 4 mg tablet,disintegrating 4 mg PO Q8H PRN (Reason: nausea and vomiting) Qty: 10 0RF No Action omeprazole 20 mg capsule,delayed release(DR/EC) 20 mg PO DAILY Qty: 14 0RF ondansetron 4 mg tablet,disintegrating 4 mg PO Q8H PRN (Reason: nausea and vomiting) Qty: 14 0RF dicyclomine 20 mg tablet 20 mg PO QID Qty: 20 0RF promethazine 25 mg tablet 25 mg PO Q6H PRN (Reason: nausea and vomiting) Qty: 20 0RF ondansetron 4 mg tablet,disintegrating 4 mg PO Q8H PRN (Reason: nausea and vomiting) Qty: 10 0RF hyoscyamine sulfate [Levsin] 0.125 mg tablet 0.125 mg PO QID Qty: 14 0RF ondansetron 4 mg tablet,disintegrating 4 mg PO Q6H PRN (Reason: nausea and vomiting) Qty: 10 0RF alum-mag hydroxide-simeth [Maalox Advanced] 200-200-20 mg/5 mL suspension 10 ml PO QID PRN (Reason: dyspepsia) Qty: 300 0RF Rx Instructions: administer between meals and at bedtime ondansetron 4 mg tablet,disintegrating 4 mg PO Q8H PRN (Reason: nausea and vomiting) Qty: 10 0RF dicyclomine 20 mg Tablet 20 mg PO BID Patient Comments: HAVE NOT HAD A DOSE. UNABLE TO OBTAIN FROM HIS PHARMACY Eliquis 5 mg Tablet 5 mg PO BID dicyclomine 20 mg tablet 20 mg PO BID Qty: 30 0RF famotidine [Pepcid] 20 mg tablet 20 mg PO BID 42 Days Qty: 84 0RF ondansetron 4 mg tablet,disintegrating 4 mg PO Q8H PRN (Reason: nausea and vomiting) Qty: 10 0RF dicyclomine 20 mg tablet 20 mg PO TID PRN (Reason: abdominal pain) Qty: 20 0RF amoxicillin-pot clavulanate 875-125 mg tablet 1 tablet PO Q12H Qty: 14 0RF pantoprazole 40 mg tablet,delayed release (DR/EC) 40 mg PO HS Qty: 14 0RF famotidine [Pepcid] 20 mg tablet 20 mg PO DAILY Qty: 30 0RF ondansetron 4 mg tablet,disintegrating 4 mg PO Q6H PRN (Reason: nausea and vomiting) 3 Days Qty: 12 0RF Follow-up/Referrals: John,Td Lewis MD [Primary Care Provider, Unknown] Time of Disposition: 22:53
[2025-02-01] MEDS: diazePAM INJ (*CRX) 10 MG/2 ML SYRINGE 5 MG IV PUSH (22:25)
[2025-02-01] MEDS: HYDROmorphone HCL INJ (*CRX) 1 MG/ML SYR 0.5 MG IV PUSH (22:26)
== END 2025-02-01 23:11 | disposition home or self-care (01) ==
PROVIDERS: Emergency Provider Student in an Organized Health Care Education/Training Program; PCP Family Medicine
DX: K86.1 Other chronic pancreatitis (principal); I10 Essential (primary) hypertension; K21.9 Gastro-esophageal reflux disease without esophagitis; K58.9 Irritable bowel syndrome, unspecified; F17.210 Nicotine dependence, cigarettes, uncomplicated; Z87.442 Personal history of urinary calculi; Z90.49 Acquired absence of other specified parts of digestive tract; Z79.01 Long term (current) use of anticoagulants; Z79.899 Other long term (current) drug therapy
CPT/HCPCS: 36415; 80053; 81001; 83690; 85025; 96361; 96374; 96375; 99284; J1171; J3360; J7120

== ENCOUNTER 2025-02-03 18:14 | Emergency (ER) | payer MEDICAID, SELFPAY ==
--- OUTSIDE RECORDS SUMMARY | 2023-09-21 09:30 | XMS_ITS ---
Author Organization [facility] Address [address] [place] [address] Care Team Providers Care Drug Counselor Name Role Phone John TUCKER, Td Primary Care Provider Unavaila jenny FIGUEROA EXTERMINATOR HELPER TERMITE, NATALIYA Unavailable IFRAH TUCKER, BRODERICK Unavailable REASON FOR VISIT ERCP INPT Encounters Encounter Location Date Provider Diagnosis [facility] - Op [address] Sched[address] [place], [place] [id number] 09/21/2023 BRODERICK RG Plan Of Treatment No Information Progress Notes * Donovan BROWN MDOB: 2 (44 yo M)Acc No.[id number]:09/21/2023 Patient: Donovan HASSAN Provider: William Rg MD, FASGE :1980 A ge:43 Y S ex:Male Date:09/21/2023 Address:[address] [id number] Pcp:Td Lopez MD * * Electronic signature of ROSETTE RG MD, MD on 02/03/2025 at 07:18 PM EDT Sign off status: Pending * Provider: William gR MD, FASGE Date: 09/21/2023 Generated for Printi ng/Faxing/eTransmitting on: 0 02/03/2025 07:18 PM EDT
--- OUTSIDE RECORDS SUMMARY | 2023-09-23 10:00 | XMS_ITS ---
Author Organization [facility] Address [address] [place] [address] Care Team Providers Care Ethylbenzene Oxidizer Name Role Phone John TUCKER, Td Primary Care Provider Unavaila jenny FIGUEROA SUPERVISOR GROWER, NATALIYA Unavailable [phone] IFRAH TUCKER, BRODERICK Unavailable [phone] REASON FOR VISIT ERCP stent pull INPT Encounters Encounter Location Date Provider Diagnosis [facility] - Op [address] [place], [place] [id number] 09/23/2023 BRODERICKNICKY RG Plan Of Treatment No Information Progress Notes * Donovan BROWN MDOB: 2 (44 yo M)Acc No.[id number]:09/23/2023 Patient: Donovan HASSAN Gaby Provider: William Rg MD, FASGE :1980 A ge:43 Y S ex:Male Date:09/23/2023 Address:[address] [id number] Pcp:Td Lopez MD * * Electronic signature of ROSETTE RG MD, MD on 02/03/2025 at 07:17 PM EDT Sign off status: Pending * Provider: William Rg MD, FASGE Date: 0 09/23/2023 Generated for Printi ng/Faxing/eTransmitting on: 0 02/03/2025 07:17 PM EDT
--- OUTSIDE RECORDS SUMMARY | 2024-02-29 04:00 | XMS_ITS ---
Author Organization [facility] Address [address] [place] [address] Care Team Providers Care Decontamination Technician Name Role Phone John TUCKER, Td Primary Care Provider Tucker FIGUEROA NP, NATALIYA Porras [phone] REASON FOR VISIT FU ER Visit Encounters Encounter Location Date Provider Diagnosis [facility] [address] [place] [address] 02/29/2024 NATALIYA FIGUERAO Plan Of Treatment No Information Progress Notes * Donovan BROWN MDOB: 2 (44 yo M)Acc No.[id number]:02/29/2024 Progress Notes Patient: Donovan HASSAN Appointment Provider: Enrrique Figueroa CNP :1980 A ge:43 Y S ex:Male Date:02/29/2024 [facility] [facility] Pcp:Td Lopez MD Subjective: * Chief Complaints: * 1 . FU ER Visit. * Medical History: Objective: * Vitals: Assessment: Plan: * Treatment: * * Electronic signature of AMANDA FIGUEROA NP, MSN SMALL KICK PRESS OPERATOR-BC on 02/03/2025 at 07:17 PM EDT Sign off status: Pending * Appointment Provider: Enrrique Figueroa CNP Date: 1 Generated for Printing/Faxing/eTransmitting on: 0 02/03/2025 07:17 PM EDT
--- NOTE | ~2025-02-03 | CT_ITS ---
EXAMINATION: CT abdomen pelvis w con DATE: 02/03/2025 21:21 INDICATION: Abdomen pain. History of pancreatitis. TECHNIQUE: Computed tomography (CT) of the abdomen and pelvis was performed without intravenous contrast. The dose-length product was 261.13 mGy-cm. COMPARISON: CT dated 01/25/2025. FINDINGS: Lung bases unremarkable. Heart size normal. No significant pleural or pericardial effusion. Status post cholecystectomy. The liver, spleen, pancreas, adrenal glands and kidneys are unremarkable. No free air or free fluid. No significant vascular abnormality. No lymphadenopathy. No evidence for hernia. No abnormal pelvic masses or fluid collections. IMPRESSION: 1. No acute abdominal abnormality. Reviewed, dictated and finalized at location O.
--- OUTSIDE RECORDS SUMMARY | 2025-02-03 18:17 | XMS_ITS | Encounter Summary ---
Author Organization [facility] Healthcare Address [address] [place] [address] Care Team Providers Care Radiophone Operator Name Role Phone Td Lopez MD Primary Care Provider + Angie Woodard MD Unavailable [phone] Vimal Woodruff MD Unavailable PastorAlannah MA Unavailable [phone] PastorAlannah fair MA Unavailable [phone] PastorAlannah fair MA Unavailable [phone] Eun Arana RN Unavailable [phone] Lakshmi Garcia LPN Unavailable [phone] Niki Burns MA Unavailable Encounter Details Date Type Department Care Team (Late st Contact Info) Description 12/21/2017 Documentation [id number] [place] [id number] Shannan Farfan, JOHN Social History Tobacco Use Types Packs/Day Years Used Date Smoking Tobacco: Every Day Sex and Gender Information Value Date Recorded Sex Assigned at Not on file Legal Sex 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 07/08/2021 07/14/2021 11/05/2021 3:05 AM C DT COVID: Suspected 05/20/2022 05/20/2022 05/20/2022 2:32 AM COPY CAMERA OPERATOR COVID: Suspected 09/20/2023 09/20/2023 09/20/2023 9:26 PM CDT COVID: Suspected 10/04/2023 10/04/2023 10/04/2023 3:55 PM CDT documented as of this encounter Care Teams Radiophone Operator Relationship Specialty Start Date End Date Td Lopez MD [facility] [address] [address] PCP - General Family Medicine 11/09/20 Angie Woodard MD [address] [facility] [address] [place] [address] Consulting Physician Gastroenterology 07/17/21 Vimal Woodruff MD [address] [facility] [address] [place] [address] Consulting Physician Gastroenterology 02/10/22 Alannah Baumann MA [address] [facility] [facility] [address] [place] [address] ACO Care Window Cutter 12/31/23 01/05/24 Alannah Baumann MA [address] [facility] [address] [address] [place] [address] ACO Care Window Cutter 06/29/24 06/30/24 Alannah Baumann MA [address] [place] [address] [address] [place] [address] ACO Care Window Cutter 08/03/24 08/03/24 Eun Arana RN [address] [place] [address] [address] [place] [address] Supervisor Molding 08/17/24 08/25/24 Lakshmi Garcia LPN [address] [place] [address] [address] [place] [address] Supervisor Molding 10/05/24 10/05/24 Niki Burns MA [address] [place] [address] [address] [place] [address] ACO Care Window Cutter 10/18/24 10/19/24 documented as of this encounter
--- OUTSIDE RECORDS SUMMARY | 2025-02-03 18:17 | XMS_ITS | Patient Health Record ---
Author Organization [facility] Address [address] [facility] [address] [place] [address] Care Team Providers Care Laborer Wrecking And Salvaging Name Role Phone John TUCKER, Td Primary Care Provider Tucker FIGUEROA JOURNEYMAN LINEMAN, NATALIYA Unavailable Allergies Allergen (clinical drug ingredient) [...] W/U Status Risk Notes Problem Chronic pancreatitis (520221263) Other chronic pancreatitis (K86.1) Active confirmed Plan Of Treatment No Information Insurance Providers Payer Name Payer Address Payer Phone Subscriber Number Group Number Insured Name Patient Relationship to Insured Coverage Start Date Coverage End Date [address] [id number] Donovan Bailey Self - patient is the insured Medical (General) History Medical History History ICD Code chronic pancreatitis cyclic vomiting hyperemesis cannabis Surgical History Surgery Date(Month/Year) cholecystectomy ERCP
--- OUTSIDE RECORDS SUMMARY | 2025-02-03 18:17 | XMS_ITS | Clinical Summary ---
Author Organization [facility] Address [facility] [place] [address] Care Team Providers Care Electrocardiograph Technician Name Role Phone Td Lopez MD Primary Care Provider [phone] Allergies Active Allergy Reactions Criticality Noted Date Comments Capsaicin Other (see comment) Low 05/20/2019 Pt states it gets into his scars and causes a lot of pain Doxycycline GI Upset Low 03/29/2017 Haloperidol Other (see comment) 01/29/2022 Musculoskeletal pain Metoclopramide Myalgias 03/29/2017 Sulfa Antibiotics Myalgias,Other (see comment) Medium 03/29/2017 Reaction: neurological symptoms per patient Medications CREON [id number] units CAPSULE ENTERIC COATED PARTICLES Take 36,000 [...] pain 10/18/2022 Abdominal pain 10/18/2022 Acute pancreatitis ([facility]) 09/28/2022 Renal infarct ([facility]) 09/08/2022 Marijuana use 09/04/2022 Normocytic normochromic anemia 09/04/2022 Sphincter of Oddi dysfunction 09/04/2022 Tobacco use disorder, continuous 09/04/2022 Pancreatitis ([facility]) 09/02/2022 GI bleed 06/28/2022 Folliculitis 01/08/2022 Overview (09/04/2022): Last Assessment & Plan: - chronic, uncontrolled - start clindamycin gel daily x 7 days - ref to derm for eval. Manipulative behavior 07/14/2021 COVID-19 vaccine series completed 06/27/2021 Overview (09/04/2022): Moderna x2 Drug-seeking behavior 06/27/2021 History of 2019 novel coronavirus disease (COVID -19) 06/27/2021 Drug abuse and dependence ([facility]) 09/2020 Overview (09/04/2022): Last Assessment & Plan: - using mariajuana occasionally; has had frequent rx for opioids in ER - pt claims at least several days since last ER visit with narcotics given - record review suggests at least 2 wks - will check UDS Acute recurrent pancreatitis ([facility]) Other chronic pancreatitis ([facility]) Overview (09/04/2022): Last Assessment & Plan: - stable today - continue current medications - f/u with Dr Rosas as planned - encouraged pt to come to clinic instead of going to ER next time he has abdominal pain Duodenal papillary stenosis ([facility]) 11/27/2020 Hyperemesis 10/18/2019 Annual physical exam 07/15/2019 [...] Colitis 02/18/2019 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 Mild malnutrition ([facility]) 10/18/2018 Neutrophilic leukocytosis 10/18/2018 Tobacco use disorder 10/18/2018 Other chronic pancreatitis ([facility]) 02/2019 Overview (02/18/2019): Overview: Added automatically from request for surgery [id number] Chronic abdominal pain 03/30/2017 Assessment & Plan (03/30/2017 12:03 PM SENIOR NETWORK ARCHITECT): Acute on chronic, stable Patient with possible [...] Continue to advance diet as tolerated Sepsis ([facility]) 03/30/2017 Assessment & Plan (03/30/2017 12:03 PM SENIOR NETWORK ARCHITECT): Present on admission, resolved Lactic acid 2.8 [...] 03/30/2017 Assessment & Plan (03/30/2017 12:25 AM SENIOR NETWORK ARCHITECT): - established, controlled - continue home fluoxetine, nortriptyline GERD (gastroesophageal reflux disease) 7 Assessment & Plan (03/30/2017 12:25 AM SENIOR NETWORK ARCHITECT): - established, controlled - continue home nexium Hypertension 03/30/2017 Overview (03/30/2017): - established, controlled - continue home metoprolol Assessment & Plan (03/30/2017 1:01 AM SENIOR NETWORK ARCHITECT): - established, controlled - continue home metoprolol Influenza 03/30/2017 Depression 03/30/2017 Overview (02/18/2019): Overview: Last Assessment & Plan: - established, controlled - continue home fluoxetine, nortriptyline Flu 03/29/2017 Assessment & Plan (03/30/2017 12:03 PM SENIOR NETWORK ARCHITECT): Acute, influenza A + on admission, asymptomatic [...] Encounters Date Type Department Care Team Description 01/31/2025 10:37 PM CDT - 02/01/2025 2:12 AM CDT Emergency [facility] Emergency Room [address] [place] [address] Temo Soriano MD Abdominal Pain Discharge Disposition: Home or Self Care (Routine Discharge) 01/31/2025 Travel from Last 3 Months Family History [...] week 09/28/2022 How often do you attend bahai or rastafarian serv ices? Never 09/28/2022 Do you belong to any clubs o r organizations such as bahai groups, unions, fraternal or athletic groups, or [...] and heating? Not hard at all 10/18/2022 [facility] - Occupational [...] Sex Assigned at Male 06/21/2024 7:21 PM SENIOR NETWORK ARCHITECT Legal Sex Male 8:10 AM CDT Gender Identity Male 01/31/2025 10:45 PM CDT Sexual Orientation Not on file Last Filed Vital Signs Vital Sign Reading Time Taken Comments Blood Pressure 103/69 02/01/2025 1:55 AM CDT Pulse 72 02/01/2025 1:55 AM CDT Temperature 35.9 C (96.6 F) 01/31/2025 10:39 PM CDT Respiratory Rate 20 02/01/2025 1:55 AM CDT Oxygen Saturation 96% 02/01/2025 1:55 AM CDT Inhaled Oxygen Concentration - - Weight 68 kg (150 lb) 01/31/2025 10:39 PM CDT Height 177.8 cm (5' 10) 01/31/2025 10:39 PM CDT Body Mass Index 21.52 01/31/2025 10:39 PM CDT Plan of Treatment Health Maintenance [...] discharge from hospital Lifestyle No Sintia Zhao, mental health aide Procedure Name Priority Date/Time Associated Diagnosis Comments DRUG SCREEN RAPID STAT 01/31/2025 11: 10 PM CDT URINALYSIS, AUTO, COMPLETE STAT 01/31/2025 11:10 PM CDT LIPASE STAT 01/31/2025 10:49 PM CDT COMPREHENSIVE METABOLIC PANEL STAT 01/31/2025 10:49 PM CDT CBC W/DIFF AUTOMATED STAT 01/31/2025 10:49 PM CDT from Last 3 Months Results * DRUG SCREEN RAPID (01/31/2025 11:10 PM CDT) AMPHETAMINE (U) NONE DETECTED NONE DETECTED 01/31/2025 11:28 PM CDT [facility] BARBITURATES SCREEN (U) NONE DETECTED NONE DETECTED 01/31/2025 11:28 PM CDT [facility] BENZODIAZEPINES SCREEN (U) NONE DETECTED NONE DETECTED 01/31/2025 11:28 PM CDT [facility] BUPRENORPHINE SCREEN (U) NONE DETECTED NONE DETECTED 01/31/2025 11:28 PM CDT [facility] COCAINE METABOLITES (U) NONE DETECTED NONE DETECTED 01/31/2025 11:28 PM CDT [facility] METHAMPHETAMINE (U) NONE DETECTED NONE DETECTED 01/31/2025 11:28 PM CDT [facility] METHADONE (U) NONE DETECTED NONE DETECTED 01/31/2025 11:28 PM CDT [facility] OPIATE SCREEN (U) NONE DETECTED NONE DETECTED 01/31/2025 11:28 PM CDT [facility] OXYCODONE SCREEN (U) NONE DETECTED NONE DETECTED 01/31/2025 11:28 PM CDT [facility] PHENCYCLIDINE PCP (U) NONE DETECTED NONE DETECTED 01/31/2025 11:28 PM CDT [facility] CANNABINOIDS SCREEN (U) NONE DETECTED NONE DETECTED 01/31/2025 11:28 PM CDT [facility] TRICYCLIC ANTIDEPRESSANT SCREEN (U) NONE DETECTED NONE DETECTED 01/31/2025 11:28 PM CDT [facility] Comment: NOTE: RESULTS OF THIS DRUG [...] TCA- 300 NG/ML URINE SPECIMEN / Unknown 01/31/2025 11:10 PM CDT Temo Soriano MD URINE ORDERABLES Final Res ult [facility] [address] [place] [address], [place] [phone] * URINALYSIS, AUTO, COMPLETE (01/31/2025 11:10 PM CDT) COLOR (U) YELLOW 01/31/2025 11:30 PM CDT [facility] TRANSPARENCY HAZY 01/31/2025 11:30 PM CDT [facility] SPECIFIC GRAVITY (U) 1.015 1.000 - 1.030 01/31/2025 11:30 PM CDT [facility] U PH 8.0 5.0 - 9.0 01/31/2025 11:30 PM CDT [facility] LEUKOCYTES (U) NEGATIVE NEGATIVE 01/31/2025 11:30 PM CDT [facility] NITRITES NEGATIVE NEGATIVE 01/31/2025 11:30 PM CDT [facility] PROTEIN RANDOM (U) NEGATIVE NEGATIVE 01/31/2025 11:30 PM CDT [facility] GLUCOSE (U) NEGATIVE NEGATIVE 01/31/2025 11:30 PM CDT [facility] KETONES MG/DL (U) NEGATIVE NEGATIVE 01/31/2025 11:30 PM CDT [facility] BILIRUBIN (U) NEGATIVE NEGATIVE 01/31/2025 11:30 PM CDT [facility] BLOOD (U) NEGATIVE NEGATIVE 01/31/2025 11:30 PM CDT [facility] WBC/HPF NONE SEEN 0 - 5 /HPF 01/31/2025 11:30 PM CDT [facility] RBC/HPF NONE SEEN 0 - 5 /HPF 01/31/2025 11:30 PM CDT [facility] EPI/HPF NONE SEEN /HPF 01/31/2025 11:30 PM CDT [facility] CRYSTALS (U) FEW /HPF 01/31/2025 11:30 PM CDT [facility] Comment:AMORPHOUS MATERIAL URINE SPECIMEN OBTAINED BY CLEAN CATCH PROCEDURE / Unknown 01/31/2025 11:10 PM CDT us Temo Soriano MD URINE ORDERABLES Final Res ult [facility] [address] [place] [address], [place] [phone] * (ABNORMAL) COMPREHENSIVE METABOLIC PANEL (01/31/2025 10:49 PM CDT) Pathologist [facility] GLUCOSE 120(H) 70 - 99 MG/DL 01/31/2025 11:14 PM [facility] BUN 6(L) 7 - 18 MG/DL 01/31/2025 11:14 PM [facility] CREATININE S/P/B 1.10 0.7 - 1.3 MG/DL 01/31/2025 11:14 PM [facility] SODIUM S/P/B 141 136 - 145 MMOL/L 01/31/2025 11:14 PM [facility] POTASSIUM S/P/B 3.7 3.5 - 5.1 MMOL/L 01/31/2025 11:14 PM [facility] CHLORIDE S/P/B 102 100 - 108 MMOL/L 01/31/2025 11:14 PM [facility] CO2 28.1 21 - 32 MMOL/L 01/31/2025 11:14 PM [facility] CALCIUM S/P/B 9.6 8.5 - 10.1 MG/DL 01/31/2025 11:14 PM [facility] BILIRUBIN TOTAL S/P/B 0.7 0.2 - 1.2 MG/DL 01/31/2025 11:14 PM [facility] TOTAL PROTEIN S/P/B 7.7 6.4 - 8.2 G/DL 01/31/2025 11:14 PM [facility] ALBUMIN S/P/B 4.4 3.4 - 5.0 G/DL 01/31/2025 11:14 PM [facility] AST 15 15 - 37 U/L 01/31/2025 11:14 PM [facility] ALT 19 16 - 60 U/L 01/31/2025 11:14 PM CDT [facility] ALKALINE PHOSPHATASE S/P/B 85 50 - 136 U/L 01/31/2025 11:14 PM CDT [facility] ANION GAP 10.9 5 - 15 MMOL/L 01/31/2025 11:14 PM CDT [facility] BUN CREATININE RATIO 5.5(L) 6 - 26 01/31/2025 11:14 PM CDT [facility] A/G RATIO 1.3 1.0 - 2.0 RATIO 01/31/2025 11:14 PM CDT [facility] GFR ESTIMATE 85(L) >90 ML/MIN/1.7 3 M2 01/31/2025 11:14 PM CDT [facility] Comment: NOTE: eGFR is not calculated for patients <18 years of age. This is an estimated GFR calculation using the new CKD EPI creatinine equation without race and so does not require a correction factor for race. This estimated GFR should not be used for calculating drug doses. 01/31/2025 10:4 9 PM CDT Temo Soriano MD LABORATORY Final Resu lt [facility] [address] [place] [address], * (ABNORMAL) CBC W/DIFF AUTOMATED (01/31/2025 10:49 PM CDT) WBC 19.87(H) 4.4 - 11.0 x10'3/uL 01/31/2025 10:59 PM CDT [facility] RBC 5.09 4.50 - 5.90 x10'6/uL 01/31/2025 10:59 PM CDT [facility] HGB 15.4 14.0 - 17.5 G/DL 01/31/2025 10:59 PM CDT [facility] HCT 44.3 41.5 - 50.4 % 01/31/2025 10:59 PM CDT [facility] MCV 87.0 80.0 - 96.0 FL 01/31/2025 10:59 PM CDT [facility] MCH 30.3 26.5 - 31.4 PG 01/31/2025 10:59 PM CDT [facility] MCHC 34.8 31.9 - 34.8 G/DL 01/31/2025 10:59 PM CDT [facility] RDW 15.0(H) 12.3 - 14.3 % 01/31/2025 10:59 PM CDT [facility] PLT 296 151 - 353 x10'3/uL 01/31/2025 10:59 PM CDT [facility] MPV 10.0 9.7 - 11.9 FL 01/31/2025 10:59 PM CDT [facility] RBC MORPHOLOGY NORMAL 01/31/2025 10:59 PM CDT [facility] PLT MORPH. NORMAL 01/31/2025 10:59 PM T [facility] WBC MORPHOLOGY NORMAL 01/31/2025 10:59 PM CDT [facility] LYMPHOCYTES % 8.9(L) 15.8 - 45.0 % 01/31/2025 10:59 PM CDT [facility] NEUTROPHILS % 82.5(H) 42.1 - 71.9 % 01/31/2025 10:59 PM CDT [facility] MONOCYTES % 7.4 5.7 - 12.5 % 01/31/2025 10:59 PM CDT [facility] EOSINOPHILS 0.4 0.0 - 5.6 % 01/31/2025 10:59 PM CDT [facility] BASOPHILS 0.4 0.0 - 1.3 % 01/31/2025 10:59 PM CDT [facility] ABS. NEUTROPHILS 16.39(H) 1.40 - 6.00 x10'3/uL 01/31/2025 10:59 PM CDT [facility] IMMATURE GRANS % 0.4 0.0 - 0.5 % 01/31/2025 10:59 PM CDT [facility] ABS. LYMPHOCYTES 1.77 0.80 - 4.70 x10'3/uL 01/31/2025 10:59 PM CDT [facility] 01/31/2025 10:4 9 PM CDT us Temo Soriano MD LABORATORY Final Resu lt Performing Organization Address City/[facility]/ZIP Co de Phone Number [facility] [address] [place] [address], [place] [phone] * LIPASE (01/31/2025 10:49 PM CDT) LIPASE 30 16 - 77 UNITS/L 01/31/2025 11:14 PM CDT [facility] 01/31/2025 10:4 9 PM CDT us Temo Soriano MD LABORATORY Final Resu lt Performing Organization Address [facility]/ZIP Co de Phone Number [facility] [address] [place] [address], [place] [phone] from Last 3 Months Insurance MEDICAID Advance Directives * Full Code (Latest Code [...] 6:07 PM 10/19/2019 4:11 PM Care Teams Electrocardiograph Technician Relationship Specialty Start Date End Date Td Lopez MD PCP - General FAMILY PRACTICE 08/18/19
--- OUTSIDE RECORDS SUMMARY | 2025-02-03 18:17 | XMS_ITS | Clinical Summary ---
Author Organization [facility] Address [address] [place] [phone] Phone Care Team Providers Care Wardrobe Coordinator Name Role Phone Unavailable Primary Care Provider [...] on file Legal Sex Male 7:38 PM LOADING SUPERVISOR Gender Identity Not on file Sexual Orientation Not on file Last Filed Vital Signs Vital Sign Reading Time Taken Comments Blood Pressure 119/84 07/11/2022 2:03 AM LOADING SUPERVISOR Pulse 80 07/11/2022 2:03 AM LOADING SUPERVISOR Temperature 36.3 C (97.4 F) 07/11/2022 2:03 AM LOADING SUPERVISOR Respiratory Rate 18 07/11/2022 2:03 AM LOADING SUPERVISOR Oxygen Saturation 97% 07/11/2022 2:03 AM LOADING SUPERVISOR Inhaled Oxygen Concentration - - Weight 79.4 kg (175 lb) 07/10/2022 8:06 PM LOADING SUPERVISOR Height 177.8 cm (5' 10) 07/10/2022 8:06 PM LOADING SUPERVISOR Body Mass Index 25.11 07/10/2022 8:06 PM LOADING SUPERVISOR Plan of Treatment Health Maintenance Due Date Last Done Comments HEPATITIS B VACCINES (1 of 3 - 19+ 3-dose series) 2000 HPV VACCINES (1 - 3-dose SCD M series) 2008 INFLUENZA VACCINE (#1) 2024 , 02/29/2020, 02/09/2018 COVID-19 Vaccine (4 - 2024-2 6 season) 2025 10/29/2021, 11/02/2020, 10/05/2020 DTAP/TDAP/TD VACCINES (2 - T d or Tdap) 10/30/2031 10/29/2021 Insurance [facility] MEDICAID [place]ID [place]
--- OUTSIDE RECORDS SUMMARY | 2025-02-03 18:17 | XMS_ITS | Clinical Summary ---
Author Organization [facility] Address [address] [place] [address] Care Team Providers Care Certified Technician Specialist Name Role Phone Alee Zhao MD Primary Care Provider [phone] Source Comments [facility],non-owned Affiliates and Associated Physician Practices is amultiple site organization consisting of ambulatory clinics and hospital sitesin [place], [place], [place] and [place]. This disclosure is being madepursuant to the Care Everywhere program and may not contain all information available regarding this patient. Last updated 18.[facility] Allergies Active Allergy Reactions Criticality Noted Date [...] on file Legal Sex Male 7:46 PM LOADERS Gender Identity Not on file Sexual Orientation Not on file Last Filed Vital Signs Vital Sign Reading Time Taken Comments Blood Pressure 120/71 03/17/2019 5:03 PM LOADERS Pulse 75 03/17/2019 5:03 PM LOADERS Temperature 36.9 C (98.4 F) 03/17/2019 2:00 PM LOADERS Respiratory Rate 17 03/17/2019 5:03 PM LOADERS Oxygen Saturation 99% 03/17/2019 5:03 PM LOADERS Inhaled Oxygen Concentration - - Weight 77.1 kg (170 lb) 03/17/2019 2:00 PM LOADERS Height 177.8 cm (5' 10) 03/17/2019 2:00 PM LOADERS Body Mass Index 24.39 03/17/2019 2:00 PM LOADERS Plan of Treatment Health Maintenance Due Date [...] RFLX NAAT QUANT STAT 03/27/2018 9:12 PM LOADERS HIV-1 HIV-2 ANTIGEN/ANTIBODY STAT 03/27/2018 9:12 PM LOADERS from Last 3 Months or Most Recently Relevant to Health Maintenance Results * HIV-1 HIV-2 ANTIGEN/ANTIBODY (03/27/2018 9:12 PM LOADERS) HIV Antigen/Antibod y 1 & 2 Non-reacti ve Non-react nemesio 03/27/2018 10:17 PM LOADERS [facility] Comment: Neither HIV-1 p24 Antigen nor HIV-1/HIV-2 Antibodies are detected. Blood BLOOD SPECIMEN / Unknown Venipuncture / Unknown 03/27/2018 9:12 PM LOADERS 03/27/2018 9:21 PM LOADERS us Davi Patrick MD LAB - HEMATOLOGY ORDERABLES Fi nal Result Performing Organization Address [facility] Co de Phone Number [address] [phone] * HEPATITIS C AB SCREEN RFLX NAAT QUANT (03/27/2018 9:12 PM LOADERS) Hepatitis C Antibody Non-react nemesio Non-reac tive 03/27/2018 10:20 PM LOADERS [facility] Comment: Hepatitis C Antibody screen indicates no serologic evidence of past or current infection with Hepatitis C Virus. Patients with unexplained liver disease who are immunocompromised or suspected of having acute Hepatitis C infection may benefit from Nucleic Acid Test (RINKU) for Hepatitis C Viral RNA to confirm Hepatitis C status. Blood BLOOD SPECIMEN / Unknown Venipuncture / Unknown 03/27/2018 9:12 PM LOADERS 03/27/2018 9:21 PM LOADERS us Davi Patrick MD LAB - CHEMISTRY ORDERABLES Fin al Result Performing Organization Address [facility] Co de Phone Number [address] [phone] from Last 3 Months or Most Recently Relevant to Health Maintenance Insurance [facility] Care Teams Certified Technician Specialist Relationship Specialty Start Date End Date Alee Zhao MD [address] [place] [phone] PCP - General Family Medicine 03/25/18
[2025-02-03 18:59] VITALS: BP 176/105; PULSE 99; RESP 20; TEMP 36.2; O2SAT 98
[2025-02-03 20:45] LABS: Hematocrit 42.6 % (42.0-52.0); Hemoglobin 14.2 g/dL (14.0-18.0); Immature Granulocyte Percent A 0.5 % (0-0.5); Lymphocytes Absolute Auto 0.84 K/mm3 (0.9-3.2); Mean Corpuscular HGB Conc 33.3 g/dl (32-36); Mean Corpuscular Hemoglobin 29.3 pg (26-34); Mean Corpuscular Volume 88.0 fl (80-100); Nucleated Red Blood Cells Absolute Auto 0.000 K/mm3 (0.0-0.012); Nucleated Red Blood Cells Perc 0.0 % (0.0-0.2); Platelet Count Result 286 k/mm3 (150-375); Red Blood Count 4.84 M/mm3 (4.6-6.20); White Blood Count 19.5 K/mm3 (4.5-10.0)
[2025-02-03] MEDS: SODIUM CHLORIDE 0.9% IV 1,000 ML 999 ML IV CONT (20:45)
[2025-02-03 20:46] VITALS: BP 159/103; O2SAT 98
[2025-02-03 20:47] VITALS: O2SAT 100
[2025-02-03 20:48] VITALS: BP 146/104; O2SAT 95
[2025-02-03 20:56] LABS: Alanine Aminotransferase 17 U/L (6-50); Albumin Level 4.5 g/dL (3.5-5.1); Alkaline Phosphatase 85 U/L (38-126); Anion Gap 8 mmol/L (4-12); Aspartate Amino Transferase 32 U/L (17-59); Bilirubin,Total 0.5 mg/dL (0.2-1.3); Blood Urea Nitrogen 9 mg/dL (9-20); Calcium 9.2 mg/dL (8.4-10.2); Carbon Dioxide 25 mmol/L (22-30); Chloride 107 mmol/L (98-107); Estimated CRCL calculation 82 ml/min; Estimated Glomerular Filt Rate > 60; Glucose 116 mg/dL (65-110); Lipase 319 U/L (23-300); Potassium 4.1 mmol/L (3.4-5.0); Sodium 140 mmol/L (137-145); Total Protein 7.3 g/dL (6.3-8.2)
[2025-02-03 20:58] LABS: Add Urine Microscopic? YES; Appearance Urine Clear (Clear); Glucose Urine UA Negative (Negative); Leukocyte Esterase Ur Trace LEU/UL (Negative); Nitrate Urine Negative (Negative); Non Pathogenic Casts 0-2; Specific Grav Ur 1.014 (1.001-1.035)
[2025-02-03] MEDS: ONDANSETRON INJ 4 MG/2 ML VIAL IV PUSH ×2 (21:24→22:01)
[2025-02-03] MEDS: MORPHINE SULFATE (*CRX) 4 MG/ML INJ 2 MG IV PUSH ×2 (21:24→22:01)
--- NOTE | 2025-02-03 21:39 | ED.ABDPAIN ---
HPI - Abdominal Pain General Chief Complaint: Abdominal Pain Stated Complaint: abd pain Time Seen by Provider: 02/03/25 20:37 History of Present Illness HPI narrative: Patient is a 44-year-old male who presents emergency department this evening complaining of abdominal pain. 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 States this feels similar. Patient has been seen in our facility multiple times in the past for similar symptoms with normal workup. He is currently requesting IV narcotics. Admits to nausea and 1 episode of emesis. No additional symptoms or concerns. Related Data Home Medications ?Medication ?Instructions ?Recorded ?Confirmed ?Last Taken ?Type apixaban 5 mg tablet (Eliquis) 5 mg PO BID 04/05/23 04/05/23 Unknown History dicyclomine 20 mg tablet 20 mg PO BID 04/05/23 04/05/23 Unknown History Allergies Allergy/AdvReac Type Severity Reaction Status Date / Time metoclopramide Allergy Unknown Muscle Verified 02/03/25 19:03 Spasms haloperidol (From Haldol) AdvReac Mild Muscle Verified 02/03/25 19:03 Spasms doxycycline AdvReac Unknown Gastrointestinal Verified 02/03/25 19:03 Upset sulfamethoxazole AdvReac Unknown Gastrointestinal Verified 02/03/25 19:03 Upset trimethoprim AdvReac Unknown Gastrointestinal Verified 02/03/25 19:03 Upset prochlorperazine (From AdvReac Muscle Verified 02/03/25 19:03 Compazine) Spasms Sulfa (Sulfonamide AdvReac Gastrointestinal Verified 02/03/25 19:03 Antibiotics) Upset Review of Systems Review of Systems: All systems are reviewed and are negative unless stated otherwise in the HPI. [facility] Past Medical History Medical History Kidney infarction Chronic pancreatitis Cyclical vomiting Anxiety Depression Kidney stones Hypertension GERD (gastroesophageal reflux disease) Cyclic vomiting syndrome IBD (inflammatory bowel disease) Gastroenteritis Pancreatitis Colitis Surgical History Surgical History Hx of cholecystectomy Family History Family History Grandparent Acute myocardial infarction Social History Social History Smoking packs per day: 1 Smoking cigarettes per day: 20.0 Years smoked: 20 Smoking pack-years: 20.00 Smoking status: Current every day smoker Tobacco type: cigarettes Alcohol intake: current Drinks per week: 3 Substance use: current Substance use type: marijuana Last use: PROBABLY ABOUT A WEEK AGOago Lack of Transportation: No Lack of Food: Never True Current Housing: I Have Housing Concerned About Future Housing: No Difficulty Paying Gas/Electric Bills: No Difficulty Paying for Meds: No Currently Unemployed: No Education: High School Diploma/GED Difficulty w/ Childcare or Family Care: No Living arrangements: alone Gender identity (if verbalized by the patient): Male Sexual Orientation (if Verbalized by the Patient): Straight or Heterosexual Spiritual care concerns: No Exam Narrative: General: Alert, awake, afebrile, in no acute distress. HEENT: PERRL, no rhinorrhea, no post nasal drip, oropharynx clear. Neck: Trachea midline, no JVD, no lymphadenopathy. Cardiovascular: Regular rate and rhythm, no murmurs, rubs or gallops, no peripheral edema. Respiratory: Clear to auscultation bilaterally, no tachypnea, no wheezing, no rhonchi, no rubs, no respiratory distress. Abdomen: Soft, nontender, nondistended, no rebound, no guarding, no peritoneal signs. Musculoskeletal: No joint swelling or deformity, normal muscle tone. Skin: No rashes or petechia, no signs of infection. Psychiatric: Alert and oriented, normal behavior and judgment for situation. Neurological: Alert and oriented to person, place, and time. Follows all commands. No focal deficits, speech is clear and fluent. Course Vital Signs Vital signs: Vital Signs Temperature 97.1 F L 02/03/25 18:59 Pulse Rate 99 02/03/25 18:59 Respiratory Rate 20 02/03/25 18:59 Blood Pressure 176/105 H 02/03/25 18:59 Pulse Oximetry 98 02/03/25 18:59 Temperature 97.1 F L 02/03/25 18:59 Pulse Rate 99 02/03/25 18:59 Respiratory Rate 20 02/03/25 18:59 Blood Pressure 146/104 H 02/03/25 20:48 Pulse Oximetry 95 02/03/25 20:48 MDM - Abdominal Pain MDM Narrative Medical decision making narrative: The patient was evaluated by myself in the emergency department. History is obtained from patient who is an independent historian and physical exam was performed. External medical records were reviewed at this time. IV was established and pertinent tests were ordered. Patient was administered 4 mg IV morphine and 4 mg IV Zofran and 1 L IV fluid bolus with normal saline. Laboratory results obtained revealing lipase of 319 and leukocytosis of 19.5 otherwise unremarkable. Imaging studies obtained included CT abdomen pelvis with IV contrast which was independently interpreted by me revealing no acute process, which is pending final radiology interpretation. Differential diagnosis considerations include acute pancreatitis, narcotic pain seeking behavior, gastritis, dehydration, electrolyte derangements. Comorbidities impacting this visit include history of pancreatitis. I have evaluated and discussed social determinants of health with the patient that could potentially impact subsequent diagnosis and treatment plans. On repeat assessment of the patient, reevaluation revealed that the patient is doing well and is in no acute distress. Patient symptoms have improved since he arrived to our emergency department. Repeat vital signs were all reviewed and noted to be stable. Differential diagnosis and treatment plan were discussed with the patient at bedside. Patient agrees with discussion and after shared medical decision making agrees with discharge. All questions were answered to the patient's satisfaction. Patient will follow up with his PCP in 3-5 days. Patient was provided with strict return precautions and instructed to return to the emergency department if any new or worsening symptoms develop. The patient was discharged in stable condition. Lab Data 02/03/25 20:40 02/03/25 20:40 Labs: Lab Results 02/03/25 02/03/25 Range/Units 20:40 20:46 WBC 19.5 H (4.5-10.0) K/mm3 RBC 4.84 (4.6-6.20) M/mm3 Hgb 14.2 (14.0-18.0) g/dL Hct 42.6 (42.0-52.0) % MCV 88.0 (80-100) fl MCH 29.3 (26-34) pg MCHC 33.3 (32-36) g/dl RDW 15.0 H (11.5-14.5) % Plt Count 286 (150-375) k/mm3 MPV 9.8 (7.4-10.4) fl Immature Gran % (Auto) 0.5 (0-0.5) % Neut % (Auto) 90.4 H (45.5-73.1) % Lymph % (Auto) 4.3 L (18.3-44.2) % [place] % (Auto) 4.4 (2.6-8.5) % Eos % (Auto) 0.1 (0-4.4) % Baso % (Auto) 0.3 (0.2-1.2) % Lymph # (Auto) 0.84 L (0.9-3.2) K/mm3 [place] # (Auto) 0.9 H (0.1-0.6) K/mm3 Eos # (Auto) 0.0 (0-0.3) K/mm3 Baso # (Auto) 0.1 (0.0-0.1) K/mm3 Abs Immat Gran (auto) 0.10 H (0.00-0.031) K/mm3 Absolute Neuts (auto) 17.6 H (1.3-6.7) K/mm3 Absolute Nucleated RBC 0.000 (0.0-0.012) K/mm3 Nucleated RBC % 0.0 (0.0-0.2) % Sodium 140 (137-145) mmol/L Potassium 4.1 (3.4-5.0) mmol/L Chloride 107 (98-107) mmol/L Carbon Dioxide 25 (22-30) mmol/L Anion Gap 8 (4-12) mmol/L BUN 9 (9-20) mg/dL Creatinine 0.99 (0.7-1.3) mg/dL Estim Creat Clear Calc 82 ml/min Estimated GFR > 60 (59 - ) Glucose 116 H (65-110) mg/dL Calcium 9.2 (8.4-10.2) mg/dL Total Bilirubin 0.5 (0.2-1.3) mg/dL AST 32 (17-59) U/L ALT 17 (6-50) U/L Alkaline Phosphatase 85 (38-126) U/L Total Protein 7.3 (6.3-8.2) g/dL Albumin 4.5 (3.5-5.1) g/dL Lipase 319 H (23-300) U/L Urine Color Yellow (Yellow) Urine Appearance Clear (Clear) Urine pH 6.0 (5.0-9.0) Ur Specific [place] 1.014 (1.001-1.035) Urine Protein Negative (Negative) mg/dL Urine Glucose (UA) Negative (Negative) mg/dL Urine Ketones Trace H (Negative) mg/dL Ur Blood (Man) Negative (Negative) Urine Nitrate Negative (Negative) Urine Bilirubin Negative (Negative) Urine Urobilinogen 1.0 (<2.0) mg/dL Leukocyte Esterase Rfl Trace H (Negative) CHRIS/UL Urine RBC 0-2 (0-2) /hpf Urine WBC 6-10 H (0-3) /hpf Ur Squamous Epith Cells None seen (Few) /hpf Urine Bacteria None seen /hpf Urine Casts 0-2 Imaging Data Radiologist's impression: ITS Impressions Abdomen/Pelvis CT 02/03/25 21:30 IMPRESSION: 1. No acute abdominal abnormality. Discharge Plan Discharge Clinical Impression: Abdominal pain Patient Disposition: Home Condition: Improved Instructions: Antibiotic Form, Abdominal Pain (ED) Additional Instructions: Please follow-up with your family doctor within the next 3-5 days. Return to ED if any new or worsening symptoms develop. Patient Language: Cambodian Prescriptions: No Action omeprazole 20 mg capsule,delayed release(DR/EC) 20 mg PO DAILY Qty: 14 0RF ondansetron 4 mg tablet,disintegrating 4 mg PO Q8H PRN (Reason: nausea and vomiting) Qty: 14 0RF dicyclomine 20 mg tablet 20 mg PO QID Qty: 20 0RF promethazine 25 mg tablet 25 mg PO Q6H PRN (Reason: nausea and vomiting) Qty: 20 0RF ondansetron 4 mg tablet,disintegrating 4 mg PO Q8H PRN (Reason: nausea and vomiting) Qty: 10 0RF hyoscyamine sulfate [Levsin] 0.125 mg tablet 0.125 mg PO QID Qty: 14 0RF ondansetron 4 mg tablet,disintegrating 4 mg PO Q6H PRN (Reason: nausea and vomiting) Qty: 10 0RF alum-mag hydroxide-simeth [Maalox Advanced] 200-200-20 mg/5 mL suspension 10 ml PO QID PRN (Reason: dyspepsia) Qty: 300 0RF Rx Instructions: administer between meals and at bedtime ondansetron 4 mg tablet,disintegrating 4 mg PO Q8H PRN (Reason: nausea and vomiting) Qty: 10 0RF dicyclomine 20 mg tablet 20 mg PO TID PRN (Reason: abdominal pain) Qty: 20 0RF ondansetron 4 mg tablet,disintegrating 4 mg PO Q8H PRN (Reason: nausea and vomiting) Qty: 10 0RF dicyclomine 20 mg Tablet 20 mg PO BID Patient Comments: HAVE NOT HAD A DOSE. UNABLE TO OBTAIN FROM HIS PHARMACY Eliquis 5 mg Tablet 5 mg PO BID dicyclomine 20 mg tablet 20 mg PO BID Qty: 30 0RF famotidine [Pepcid] 20 mg tablet 20 mg PO BID 42 Days Qty: 84 0RF ondansetron 4 mg tablet,disintegrating 4 mg PO Q8H PRN (Reason: nausea and vomiting) Qty: 10 0RF dicyclomine 20 mg tablet 20 mg PO TID PRN (Reason: abdominal pain) Qty: 20 0RF amoxicillin-pot clavulanate 875-125 mg tablet 1 tablet PO Q12H Qty: 14 0RF pantoprazole 40 mg tablet,delayed release (DR/EC) 40 mg PO HS Qty: 14 0RF famotidine [Pepcid] 20 mg tablet 20 mg PO DAILY Qty: 30 0RF ondansetron 4 mg tablet,disintegrating 4 mg PO Q6H PRN (Reason: nausea and vomiting) 3 Days Qty: 12 0RF Follow-up/Referrals: John,Td Lewis MD [Primary Care Provider, Unknown] - 3 Days Time of Disposition: 21:43
[2025-02-03 22:04] VITALS: BP 150/109; PULSE 88; RESP 20; TEMP 37.1; O2SAT 100
== END 2025-02-03 22:20 | disposition home or self-care (01) ==
PROVIDERS: Emergency Provider Emergency Medicine; PCP Family Medicine
DX: R10.9 Unspecified abdominal pain (principal); I10 Essential (primary) hypertension; K21.9 Gastro-esophageal reflux disease without esophagitis; K58.9 Irritable bowel syndrome, unspecified; F17.210 Nicotine dependence, cigarettes, uncomplicated; Z87.442 Personal history of urinary calculi; Z87.440 Personal history of urinary (tract) infections; Z90.49 Acquired absence of other specified parts of digestive tract; Z79.01 Long term (current) use of anticoagulants
CPT/HCPCS: 36415; 74177; 80053; 81001; 83690; 85025; 87086; 96361; 96374; 96375; 96376; 99284; J2270; J2405; J7030; Q9967

== ENCOUNTER 2025-02-06 02:19 | Emergency (ER) | payer MEDICAID, SELFPAY ==
--- OUTSIDE RECORDS SUMMARY | 2023-09-21 09:30 | XMS_ITS ---
Author Organization [facility] Address [address] [place] [address] Care Team Providers Care Paramedical Aide Name Role Phone John TUCKER, Td Primary Care Provider Unavaila jenny FIGUEROA HOME HEALTH PHYSICAL THERAPIST, NATALIYA Unavailable IFRAH TUCKER, BRODERICK Unavailable REASON FOR VISIT ERCP INPT Encounters Encounter Location Date Provider Diagnosis [facility] - Op [address] Sched[address] [place], [place] [id number] 09/21/2023 BRODERICK RG Plan Of Treatment No Information Progress Notes * Donovan BROWN MDOB: 2 (44 yo M)Acc No.[id number]:09/21/2023 Patient: Donovan HASSAN Provider: William Rg MD, FASGE :1980 A ge:43 Y S ex:Male Date:09/21/2023 Address:[address] [id number] Pcp:Td Lopez MD * * Electronic signature of ROSETTE RG MD, MD on 02/06/2025 at 03:32 AM EDT Sign off status: Pending * Provider: William Rg MD, FASGE Date: 09/21/2023 Generated for Printi ng/Faxing/eTransmitting on: 0 02/06/2025 03:32 AM EDT
--- OUTSIDE RECORDS SUMMARY | 2023-09-23 10:00 | XMS_ITS ---
Author Organization [facility] Address [address] [place] [address] Care Team Providers Care Contact Center Director Name Role Phone John TUCKER, Td Primary Care Provider Unavaila jenny FIGUEROA GROUNDS WORKER, NATALIYA Unavailable IFRAH TUCKER, BRODERICK Unavailable [phone] REASON FOR VISIT ERCP stent pull INPT Encounters Encounter Location Date Provider Diagnosis [facility] - Op [address] [place], [place] [phone] 09/23/2023 BRODERICKNICKY RG Plan Of Treatment No Information Progress Notes * Donovan BROWN MDOB: 2 (44 yo M)Acc No.[id number]:09/23/2023 Patient: Donovan HASSAN Gaby Provider: William Rg MD, FASGE :1980 A ge:43 Y S ex:Male Date:09/23/2023 Address:[address] [id number] Pcp:Td Lopez MD * * Electronic signature of ROSETTE RG MD, MD on 02/06/2025 at 03:32 AM EDT Sign off status: Pending * Provider: William Rg MD, FASGE Date: 0 09/23/2023 Generated for Printi ng/Faxing/eTransmitting on: 0 02/06/2025 03:32 AM EDT
--- OUTSIDE RECORDS SUMMARY | 2024-02-29 04:00 | XMS_ITS ---
Author Organization [facility] Address [address] [place] [address] Care Team Providers Care Lining Printer Name Role Phone John TUCKER, Td Primary Care Provider Tucker FIGUEROA NP, NATALIYA Porras REASON FOR VISIT FU ER Visit Encounters Encounter Location Date Provider Diagnosis [facility] [address] [place] [address] 02/29/2024 NATALIYA FIGUEROA Plan Of Treatment No Information Progress Notes * Donovan BROWN MDOB: 2 (44 yo M)Acc No.[id number]:02/29/2024 Progress Notes Patient: Donovan HASSAN Appointment Provider: Enrrique Figueroa CNP :1980 A ge:43 Y S ex:Male Date:02/29/2024 [facility] [facility] Pcp:Td Lopez MD Subjective: * Chief Complaints: * 1 . FU ER Visit. * Medical History: Objective: * Vitals: Assessment: Plan: * Treatment: * * Electronic signature of AMANDA FIGUEROA NP, MSN DRESSING ROOM ATTENDANT-BC on 02/06/2025 at 03:32 AM EDT Sign off status: Pending * Appointment Provider: Enrrique Figueroa CNP Date: 1 Generated for Printing/Faxing/eTransmitting on: 0 02/06/2025 03:32 AM EDT
[2025-02-06 02:23] VITALS: BP 174/115; PULSE 75; RESP 18; TEMP 36.9; O2SAT 97
--- OUTSIDE RECORDS SUMMARY | 2025-02-06 02:32 | XMS_ITS | Encounter Summary ---
Author Organization [facility] Healthcare Address [address] [place] [address] Care Team Providers Care Manager Math Name Role Phone Td Lopez MD Primary Care Provider + Angie Woodard MD Unavailable [phone] Vimal Woodruff MD Unavailable [phone] PastorAlannah MA Unavailable [phone] PastorAlannah fair MA Unavailable [phone] PastorAlannah fair MA Unavailable [phone] Eun Arana RN Unavailable [phone] Lakshmi Garcia LPN Unavailable [phone] Niki Burns MA Unavailable Encounter Details Date Type Department Care Team (Late st Contact Info) Description 12/21/2017 Documentation [id number] [place] [id number] Shannan Farfan, JOHN Social History Tobacco Use Types Packs/Day Years Used Date Smoking Tobacco: Every Day Sex and Gender Information Value Date Recorded Sex Assigned at Not on file Legal Sex Male 3:38 AM TICK ERADICATOR Gender Identity Not on file Sexual Orientation [...] COVID: Suspected 06/27/2021 06/27/2021 06/27/2021 12:53 PM TICK ERADICATOR COVID19 06/27/2021 06/27/2021 07/08/2021 3:05 AM TICK ERADICATOR COVID: Recovered Comment:Added based on recent COVID infection. 07/08/2021 07/14/2021 11/05/2021 3:05 AM C DT COVID: Suspected 05/20/2022 05/20/2022 05/20/2022 2:32 AM TICK ERADICATOR COVID: Suspected 09/20/2023 09/20/2023 09/20/2023 9:26 PM CDT COVID: Suspected 10/04/2023 10/04/2023 10/04/2023 3:55 PM CDT documented as of this encounter Care Teams Manager Math Relationship Specialty Start Date End Date Td Lopez MD [facility] [address] [address] PCP - General Family Medicine 11/09/20 Angie Woodard MD [address] [facility] [address] [place] [address] Consulting Physician Gastroenterology 07/17/21 Vimal Woodruff MD [address] [facility] [address] [place] [address] Consulting Physician Gastroenterology 02/10/22 Alannah Baumann MA [address] [place] [address] ACO Care Waiter/Waitress Second Class 12/31/23 01/05/24 Alannah Baumann MA [address] [place] [address] ACO Care Waiter/Waitress Second Class 06/29/24 06/30/24 Alannah Baumann MA [address] [place] [address] [address] [place] [address] ACO Care Waiter/Waitress Second Class 08/03/24 08/03/24 Eun Arana RN [address] [place] [address] [address] [place] [address] Methods Specialist 08/17/24 08/25/24 Lakshmi Garcia LPN [address] [place] [address] [address] [place] [address] Methods Specialist 10/05/24 10/05/24 Niki Burns MA [address] [place] [address] [address] [place] [address] ACO Care Waiter/Waitress Second Class 10/18/24 10/19/24 documented as of this encounter
--- OUTSIDE RECORDS SUMMARY | 2025-02-06 02:32 | XMS_ITS | Patient Health Record ---
Author Organization [facility] Address [address] [facility] [address] [place] [address] Care Team Providers Care Butt Maker Name Role Phone John TUCKER, Td Primary Care Provider Tucker FIGUEROA WASHER OPERATOR, NATALIYA Unavailable [phone] Allergies Allergen (clinical drug ingredient) Drug/Non [...] W/U Status Risk Notes Problem Chronic pancreatitis (752271703) Other chronic pancreatitis (K86.1) Active confirmed Plan Of Treatment No Information Insurance Providers Payer Name Payer Address Payer Phone Subscriber Number Group Number Insured Name Patient Relationship to Insured Coverage Start Date Coverage End Date [address] [id number] [phone] [id number] Donovan Bailey Self - patient is the insured Medical (General) History Medical History History ICD Code chronic pancreatitis cyclic vomiting hyperemesis cannabis Surgical History Surgery Date(Month/Year) cholecystectomy ERCP
--- OUTSIDE RECORDS SUMMARY | 2025-02-06 02:32 | XMS_ITS | Clinical Summary ---
Author Organization [facility] Address [address] [place] [address] Care Team Providers Care Laboratory Manager Name Role Phone Alee Zhao MD Primary Care Provider [phone] Source Comments [facility],non-owned Affiliates and Associated Physician Practices is amultiple site organization consisting of ambulatory clinics and hospital sitesin [place], [place], [place] and [place]. This disclosure is being madepursuant to the Care Everywhere program and may not contain all information available regarding this patient. Last updated 18.[facility] Allergies Active Allergy Reactions Criticality Noted Date [...] on file Legal Sex Male 7:46 PM PROGRAM ENGAGEMENT DIRECTOR Gender Identity Not on file Sexual Orientation Not on file Last Filed Vital Signs Vital Sign Reading Time Taken Comments Blood Pressure 120/71 03/17/2019 5:03 PM PROGRAM ENGAGEMENT DIRECTOR Pulse 75 03/17/2019 5:03 PM PROGRAM ENGAGEMENT DIRECTOR Temperature 36.9 C (98.4 F) 03/17/2019 2:00 PM PROGRAM ENGAGEMENT DIRECTOR Respiratory Rate 17 03/17/2019 5:03 PM PROGRAM ENGAGEMENT DIRECTOR Oxygen Saturation 99% 03/17/2019 5:03 PM PROGRAM ENGAGEMENT DIRECTOR Inhaled Oxygen Concentration - - Weight 77.1 kg (170 lb) 03/17/2019 2:00 PM PROGRAM ENGAGEMENT DIRECTOR Height 177.8 cm (5' 10) 03/17/2019 2:00 PM PROGRAM ENGAGEMENT DIRECTOR Body Mass Index 24.39 03/17/2019 2:00 PM PROGRAM ENGAGEMENT DIRECTOR Plan of Treatment Health Maintenance Due [...] RFLX NAAT QUANT STAT 03/27/2018 9:12 PM PROGRAM ENGAGEMENT DIRECTOR HIV-1 HIV-2 ANTIGEN/ANTIBODY STAT 03/27/2018 9:12 PM PROGRAM ENGAGEMENT DIRECTOR from Last 3 Months or Most Recently Relevant to Health Maintenance Results * HIV-1 HIV-2 ANTIGEN/ANTIBODY (03/27/2018 9:12 PM PROGRAM ENGAGEMENT DIRECTOR) HIV Antigen/Antibod y 1 & 2 Non-reacti ve Non-react nemesio 03/27/2018 10:17 PM PROGRAM ENGAGEMENT DIRECTOR [facility] Comment: Neither HIV-1 p24 Antigen nor HIV-1/HIV-2 Antibodies are detected. Blood BLOOD SPECIMEN / Unknown Venipuncture / Unknown 03/27/2018 9:12 PM PROGRAM ENGAGEMENT DIRECTOR 03/27/2018 9:21 PM PROGRAM ENGAGEMENT DIRECTOR us Davi Patrick MD LAB - HEMATOLOGY ORDERABLES Fi nal Result Performing Organization Address [facility] Co de Phone Number [address] [phone] * HEPATITIS C AB SCREEN RFLX NAAT QUANT (03/27/2018 9:12 PM PROGRAM ENGAGEMENT DIRECTOR) Hepatitis C Antibody Non-react nemesio Non-reac tive 03/27/2018 10:20 PM PROGRAM ENGAGEMENT DIRECTOR [facility] Comment: Hepatitis C Antibody screen indicates no serologic evidence of past or current infection with Hepatitis C Virus. Patients with unexplained liver disease who are immunocompromised or suspected of having acute Hepatitis C infection may benefit from Nucleic Acid Test (RINKU) for Hepatitis C Viral RNA to confirm Hepatitis C status. Blood BLOOD SPECIMEN / Unknown Venipuncture / Unknown 03/27/2018 9:12 PM PROGRAM ENGAGEMENT DIRECTOR 03/27/2018 9:21 PM PROGRAM ENGAGEMENT DIRECTOR us Davi Patrick MD LAB - CHEMISTRY ORDERABLES Fin al Result Performing Organization Address [facility] Co de Phone Number [address] [phone] from Last 3 Months or Most Recently Relevant to Health Maintenance Insurance [facility] Care Teams Laboratory Manager Relationship Specialty Start Date End Date Alee Zhao MD [address] [place] [phone] PCP - General Family Medicine 03/25/18
--- OUTSIDE RECORDS SUMMARY | 2025-02-06 02:32 | XMS_ITS | Clinical Summary ---
Author Organization [facility] Address [facility] [place] [address] Care Team Providers Care Worm Picker Name Role Phone Td Lopez MD Primary Care Provider [phone] Allergies Active Allergy Reactions Criticality Noted Date Comments Capsaicin Other (see comment) Low 05/20/2019 Pt states it gets into his scars and causes a lot of pain Doxycycline GI Upset Low 03/29/2017 Haloperidol Other (see comment) 01/29/2022 Musculoskeletal pain Metoclopramide Myalgias 03/29/2017 Sulfa Antibiotics Myalgias,Other (see comment) Medium 03/29/2017 Reaction: neurological symptoms per patient Medications CREON [id number] units CAPSULE ENTERIC COATED PARTICLES Take 36,000 [...] pain 10/18/2022 Abdominal pain 10/18/2022 Acute pancreatitis ([facility]) 09/28/2022 Renal infarct ([facility]) 09/08/2022 Marijuana use 09/04/2022 Normocytic normochromic anemia 09/04/2022 Sphincter of Oddi dysfunction 09/04/2022 Tobacco use disorder, continuous 09/04/2022 Pancreatitis ([facility]) 09/02/2022 GI bleed 06/28/2022 Folliculitis 01/08/2022 Overview (09/04/2022): Last Assessment & Plan: - chronic, uncontrolled - start clindamycin gel daily x 7 days - ref to derm for eval. Manipulative behavior 07/14/2021 COVID-19 vaccine series completed 06/27/2021 Overview (09/04/2022): Moderna x2 Drug-seeking behavior 06/27/2021 History of 2019 novel coronavirus disease (COVID -19) 06/27/2021 Drug abuse and dependence ([facility]) 09/2020 Overview (09/04/2022): Last Assessment & Plan: - using mariajuana occasionally; has had frequent rx for opioids in ER - pt claims at least several days since last ER visit with narcotics given - record review suggests at least 2 wks - will check UDS Acute recurrent pancreatitis ([facility]) Other chronic pancreatitis ([facility]) Overview (09/04/2022): Last Assessment & Plan: - stable today - continue current medications - f/u with Dr Rosas as planned - encouraged pt to come to clinic instead of going to ER next time he has abdominal pain 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 Hyperemesis 10/18/2019 Annual physical exam 07/15/2019 [...] Colitis 02/18/2019 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/18/2018 Mild malnutrition ([facility]) 10/18/2018 Neutrophilic leukocytosis 10/18/2018 Tobacco use disorder 10/18/2018 Other chronic pancreatitis ([facility]) 02/2019 Overview (02/18/2019): Overview: Added automatically from request for surgery [id number] Chronic abdominal pain 03/30/2017 Assessment & Plan (03/30/2017 12:03 PM CIRCULATION ANALYST): Acute on chronic, stable Patient with possible [...] Continue to advance diet as tolerated Sepsis ([facility]) 03/30/2017 Assessment & Plan (03/30/2017 12:03 PM CIRCULATION ANALYST): Present on admission, resolved Lactic acid 2.8 [...] 03/30/2017 Assessment & Plan (03/30/2017 12:25 AM CIRCULATION ANALYST): - established, controlled - continue home fluoxetine, nortriptyline GERD (gastroesophageal reflux disease) 7 Assessment & Plan (03/30/2017 12:25 AM CIRCULATION ANALYST): - established, controlled - continue home nexium Hypertension 03/30/2017 Overview (03/30/2017): - established, controlled - continue home metoprolol Assessment & Plan (03/30/2017 1:01 AM CIRCULATION ANALYST): - established, controlled - continue home metoprolol Influenza 03/30/2017 Depression 03/30/2017 Overview (02/18/2019): Overview: Last Assessment & Plan: - established, controlled - continue home fluoxetine, nortriptyline Flu 03/29/2017 Assessment & Plan (03/30/2017 12:03 PM CIRCULATION ANALYST): Acute, influenza A + on admission, asymptomatic [...] CDT - 02/01/2025 2:[address] [facility] Emergency Room [address] [place] [address] Temo Soriano MD Abdominal Pain Discharge Disposition: [...] week 09/28/2022 How often do you attend congregational or restorationist serv ices? Never 09/28/2022 Do you belong to any clubs o r organizations such as congregational groups, unions, fraternal or athletic groups, or [...] and heating? Not hard at all 10/18/2022 [facility] - [...] place to sleep or slept in a mcfp (including now)? No 10/18/2022 Sex and Gender Information Value Date Recorded Sex Assigned at Male 06/21/2024 7:21 PM CIRCULATION ANALYST Legal Sex Male 8:10 AM CDT Gender [...] discharge from hospital Lifestyle No Sintia Zhao, lathe setup operator Procedure Name Priority Date/Time Associated Diagnosis Comments [...] DETECTED NONE DETECTED 01/31/2025 11:28 PM CDT [facility] BARBITURATES SCREEN (U) NONE DETECTED NONE DETECTED 01/31/2025 11:28 PM CDT [facility] BENZODIAZEPINES SCREEN (U) NONE DETECTED NONE DETECTED 01/31/2025 11:28 PM CDT [facility] BUPRENORPHINE SCREEN (U) NONE DETECTED NONE DETECTED 01/31/2025 11:28 PM CDT [facility] COCAINE METABOLITES (U) NONE DETECTED NONE DETECTED 01/31/2025 11:28 PM CDT [facility] METHAMPHETAMINE (U) NONE DETECTED NONE DETECTED 01/31/2025 11:28 PM CDT [facility] METHADONE (U) NONE DETECTED NONE DETECTED 01/31/2025 11:28 PM CDT [facility] OPIATE SCREEN (U) NONE DETECTED NONE DETECTED 01/31/2025 11:28 PM CDT [facility] OXYCODONE SCREEN (U) NONE DETECTED NONE DETECTED 01/31/2025 11:28 PM CDT [facility] PHENCYCLIDINE PCP (U) NONE DETECTED NONE DETECTED 01/31/2025 11:28 PM CDT [facility] CANNABINOIDS SCREEN (U) NONE DETECTED NONE DETECTED 01/31/2025 11:28 PM CDT [facility] TRICYCLIC ANTIDEPRESSANT SCREEN (U) NONE DETECTED NONE DETECTED 01/31/2025 11:28 PM CDT [facility] Comment: NOTE: RESULTS OF THIS [...] Soriano MD URINE ORDERABLES Final Res ult [facility] [address] [place] [address], [place] [phone] * URINALYSIS, AUTO, COMPLETE (01/31/2025 11:10 PM CDT) COLOR (U) YELLOW 01/31/2025 11:30 PM CDT [facility] TRANSPARENCY HAZY 01/31/2025 11:30 PM CDT [facility] SPECIFIC GRAVITY (U) 1.015 1.000 - 1.030 01/31/2025 11:30 PM CDT [facility] U PH 8.0 5.0 - 9.0 01/31/2025 11:30 PM CDT [facility] LEUKOCYTES (U) NEGATIVE NEGATIVE 01/31/2025 11:30 PM CDT [facility] NITRITES NEGATIVE NEGATIVE 01/31/2025 11:30 PM CDT [facility] PROTEIN RANDOM (U) NEGATIVE NEGATIVE 01/31/2025 11:30 PM CDT [facility] GLUCOSE (U) NEGATIVE NEGATIVE 01/31/2025 11:30 PM CDT [facility] KETONES MG/DL (U) NEGATIVE NEGATIVE 01/31/2025 11:30 PM CDT [facility] BILIRUBIN (U) NEGATIVE NEGATIVE 01/31/2025 11:30 PM CDT [facility] BLOOD (U) NEGATIVE NEGATIVE 01/31/2025 11:30 PM CDT [facility] WBC/HPF NONE SEEN 0 - 5 /HPF 01/31/2025 11:30 PM CDT [facility] RBC/HPF NONE SEEN 0 - 5 /HPF 01/31/2025 11:30 PM CDT [facility] EPI/HPF NONE SEEN /HPF 01/31/2025 11:30 PM CDT [facility] CRYSTALS (U) FEW /HPF 01/31/2025 11:30 PM CDT [facility] Comment:AMORPHOUS MATERIAL URINE SPECIMEN OBTAINED BY CLEAN CATCH PROCEDURE / Unknown 01/31/2025 11:10 PM CDT us Temo Soriano MD URINE ORDERABLES Final Res ult [facility] [address] [place] [address], [place] [phone] * (ABNORMAL) COMPREHENSIVE METABOLIC PANEL (01/31/2025 10:49 PM CDT) Pathologist [facility] GLUCOSE 120(H) 70 - 99 MG/DL 01/31/2025 11:14 PM [facility] BUN 6(L) 7 - 18 MG/DL 01/31/2025 11:14 PM [facility] CREATININE S/P/B 1.10 0.7 - 1.3 MG/DL 01/31/2025 11:14 PM [facility] SODIUM S/P/B 141 136 - 145 MMOL/L 01/31/2025 11:14 PM [facility] POTASSIUM S/P/B 3.7 3.5 - 5.1 MMOL/L 01/31/2025 11:14 PM [facility] CHLORIDE S/P/B 102 100 - 108 MMOL/L 01/31/2025 11:14 PM [facility] CO2 28.1 21 - 32 MMOL/L 01/31/2025 11:14 PM [facility] CALCIUM S/P/B 9.6 8.5 - 10.1 MG/DL 01/31/2025 11:14 PM [facility] BILIRUBIN TOTAL S/P/B 0.7 0.2 - 1.2 MG/DL 01/31/2025 11:14 PM [facility] TOTAL PROTEIN S/P/B 7.7 6.4 - 8.2 G/DL 01/31/2025 11:14 PM [facility] ALBUMIN S/P/B 4.4 3.4 - 5.0 G/DL 01/31/2025 11:14 PM [facility] AST 15 15 - 37 U/L 01/31/2025 11:14 PM [facility] ALT 19 16 - 60 U/L 01/31/2025 11:14 PM CDT [facility] ALKALINE PHOSPHATASE S/P/B 85 50 - 136 U/L 01/31/2025 11:14 PM CDT [facility] ANION GAP 10.9 5 - 15 MMOL/L 01/31/2025 11:14 PM CDT [facility] BUN CREATININE RATIO 5.5(L) 6 - 26 01/31/2025 11:14 PM CDT [facility] A/G RATIO 1.3 1.0 - 2.0 RATIO 01/31/2025 11:14 PM CDT [facility] GFR ESTIMATE 85(L) >90 ML/MIN/1.7 3 M2 01/31/2025 11:14 PM CDT [facility] Comment: NOTE: eGFR is not calculated for patients <18 years of age. This is an estimated GFR calculation using the new CKD EPI creatinine equation without race and so does not require a correction factor for race. This estimated GFR should not be used for calculating drug doses. 01/31/2025 10:4 9 PM CDT Temo Soriano MD LABORATORY Final Resu lt [facility] [address] [place] [address], * (ABNORMAL) CBC W/DIFF AUTOMATED (01/31/2025 10:49 PM CDT) WBC 19.87(H) 4.4 - 11.0 x10'3/uL 01/31/2025 10:59 PM CDT [facility] RBC 5.09 4.50 - 5.90 x10'6/uL 01/31/2025 10:59 PM CDT [facility] HGB 15.4 14.0 - 17.5 G/DL 01/31/2025 10:59 PM CDT [facility] HCT 44.3 41.5 - 50.4 % 01/31/2025 10:59 PM CDT [facility] MCV 87.0 80.0 - 96.0 FL 01/31/2025 10:59 PM CDT [facility] MCH 30.3 26.5 - 31.4 PG 01/31/2025 10:59 PM CDT [facility] MCHC 34.8 31.9 - 34.8 G/DL 01/31/2025 10:59 PM CDT [facility] RDW 15.0(H) 12.3 - 14.3 % 01/31/2025 10:59 PM CDT [facility] PLT 296 151 - 353 x10'3/uL 01/31/2025 10:59 PM CDT [facility] MPV 10.0 9.7 - 11.9 FL 01/31/2025 10:59 PM CDT [facility] RBC MORPHOLOGY NORMAL 01/31/2025 10:59 PM CDT [facility] PLT MORPH. NORMAL 01/31/2025 10:59 PM T [facility] WBC MORPHOLOGY NORMAL 01/31/2025 10:59 PM CDT [facility] LYMPHOCYTES % 8.9(L) 15.8 - 45.0 % 01/31/2025 10:59 PM CDT [facility] NEUTROPHILS % 82.5(H) 42.1 - 71.9 % 01/31/2025 10:59 PM CDT [facility] MONOCYTES % 7.4 5.7 - 12.5 % 01/31/2025 10:59 PM CDT [facility] EOSINOPHILS 0.4 0.0 - 5.6 % 01/31/2025 10:59 PM CDT [facility] BASOPHILS 0.4 0.0 - 1.3 % 01/31/2025 10:59 PM CDT [facility] ABS. NEUTROPHILS 16.39(H) 1.40 - 6.00 x10'3/uL 01/31/2025 10:59 PM CDT [facility] IMMATURE GRANS % 0.4 0.0 - 0.5 % 01/31/2025 10:59 PM CDT [facility] ABS. LYMPHOCYTES 1.77 0.80 - 4.70 x10'3/uL 01/31/2025 10:59 PM CDT [facility] 01/31/2025 10:4 9 PM CDT us Temo Soriano MD LABORATORY Final Resu lt Performing Organization Address City/[facility]/ZIP Co de Phone Number [facility] [address] [place] [address], [place] [phone] * LIPASE (01/31/2025 10:49 PM CDT) LIPASE 30 16 - 77 UNITS/L 01/31/2025 11:14 PM CDT [facility] 01/31/2025 10:4 9 PM CDT us Temo Soriano MD LABORATORY Final Resu lt Performing Organization Address [facility]/ZIP Co de Phone Number [facility] [address] [place] [address], [place] [phone] from Last 3 Months Insurance MEDICAID Advance [...] 6:07 PM 10/19/2019 4:11 PM Care Teams Worm Picker Relationship Specialty Start Date End Date Td Lopez MD PCP - General FAMILY PRACTICE 08/18/19
--- OUTSIDE RECORDS SUMMARY | 2025-02-06 02:32 | XMS_ITS | Clinical Summary ---
Author Organization [facility] Address [address] [place] [phone] Phone Care Team Providers Care Lumber Planer Name Role Phone Unavailable Primary Care Provider [...] on file Legal Sex Male 7:38 PM WALL CLEANER Gender Identity Not on file Sexual Orientation Not on file Last Filed Vital Signs Vital Sign Reading Time Taken Comments Blood Pressure 119/84 07/11/2022 2:03 AM WALL CLEANER Pulse 80 07/11/2022 2:03 AM WALL CLEANER Temperature 36.3 C (97.4 F) 07/11/2022 2:03 AM WALL CLEANER Respiratory Rate 18 07/11/2022 2:03 AM WALL CLEANER Oxygen Saturation 97% 07/11/2022 2:03 AM WALL CLEANER Inhaled Oxygen Concentration - - Weight 79.4 kg (175 lb) 07/10/2022 8:06 PM WALL CLEANER Height 177.8 cm (5' 10) 07/10/2022 8:06 PM WALL CLEANER Body Mass Index 25.11 07/10/2022 8:06 PM WALL CLEANER Plan of Treatment Health Maintenance Due Date Last Done Comments HEPATITIS B VACCINES (1 of 3 - 19+ 3-dose series) 2000 HPV VACCINES (1 - 3-dose SCD M series) 2008 INFLUENZA VACCINE (#1) 2024 , 02/29/2020, 02/09/2018 COVID-19 Vaccine (4 - 2024-2 6 season) 2025 10/29/2021, 11/02/2020, 10/05/2020 DTAP/TDAP/TD VACCINES (2 - T d or Tdap) 10/30/2031 10/29/2021 Insurance [facility] MEDICAID [place]
[2025-02-06 02:35] LABS: Hematocrit 42.7 % (42.0-52.0); Hemoglobin 14.1 g/dL (14.0-18.0); Immature Granulocyte Percent A 0.3 % (0-0.5); Lymphocytes Absolute Auto 3.51 K/mm3 (0.9-3.2); Mean Corpuscular HGB Conc 33.0 g/dl (32-36); Mean Corpuscular Hemoglobin 29.1 pg (26-34); Mean Corpuscular Volume 88.2 fl (80-100); Nucleated Red Blood Cells Absolute Auto 0.000 K/mm3 (0.0-0.012); Nucleated Red Blood Cells Perc 0.0 % (0.0-0.2); Platelet Count Result 287 k/mm3 (150-375); Red Blood Count 4.84 M/mm3 (4.6-6.20); White Blood Count 13.6 K/mm3 (4.5-10.0)
[2025-02-06 02:49] LABS: Add Urine Microscopic? YES; Appearance Urine Cloudy (Clear); Glucose Urine UA Negative (Negative); Leukocyte Esterase Ur Negative LEU/UL (Negative); Nitrate Urine Negative (Negative); Non Pathogenic Casts 0-2; Specific Grav Ur 1.016 (1.001-1.035)
[2025-02-06] MEDS: ONDANSETRON INJ 4 MG/2 ML VIAL IV PUSH (02:57)
[2025-02-06] MEDS: KETOROLAC 15 MG/ML VIAL (*BKC) IV PUSH (02:57)
[2025-02-06] MEDS: FAMOTIDINE 20 MG/2 ML VIAL IV PUSH (02:58)
[2025-02-06] MEDS: SODIUM CHLORIDE 0.9% IV 1,000 ML 999 ML IV CONT (03:00)
[2025-02-06 03:15] LABS: Alanine Aminotransferase 18 U/L (6-50); Albumin Level 4.4 g/dL (3.5-5.1); Alkaline Phosphatase 73 U/L (38-126); Anion Gap 7 mmol/L (4-12); Aspartate Amino Transferase 25 U/L (17-59); Bilirubin,Total 0.4 mg/dL (0.2-1.3); Blood Urea Nitrogen 8 mg/dL (9-20); Calcium 9.1 mg/dL (8.4-10.2); Carbon Dioxide 26 mmol/L (22-30); Chloride 105 mmol/L (98-107); Estimated CRCL calculation 84 ml/min; Estimated Glomerular Filt Rate > 60; Glucose 103 mg/dL (65-110); Lipase 258 U/L (23-300); Potassium 4.1 mmol/L (3.4-5.0); Sodium 138 mmol/L (137-145); Total Protein 7.3 g/dL (6.3-8.2)
--- NOTE | 2025-02-06 03:20 | ED_ITS ---
HPI - Abdominal Pain General Chief Complaint: Abdominal Pain Stated Complaint: abd pain Time Seen by Provider: 02/06/25 02:25 History of Present Illness HPI narrative: Patient is a 44-year-old male who presents to the emergency department for the 6th time in the last 10 days complaining of nausea vomiting and epigastric pain. Patient does have a history of pancreatitis. States that the symptoms are precipitated any time he drinks juice. There is some concern at this time for narcotic-seeking behavior. Related Data Home Medications ?Medication ?Instructions ?Recorded ?Confirmed ?Last Taken ?Type apixaban 5 mg tablet (Eliquis) 5 mg PO BID 04/05/23 Unknown History dicyclomine 20 mg tablet 20 mg PO BID 04/05/23 Unknown History Allergies Allergy/AdvReac Type Severity Reaction Status Date / Time metoclopramide Allergy Unknown Muscle Verified 02/06/25 02:26 Spasms haloperidol (From Haldol) AdvReac Mild Muscle Verified 02/06/25 02:26 Spasms doxycycline AdvReac Unknown Gastrointestinal Verified 02/06/25 02:26 Upset sulfamethoxazole AdvReac Unknown Gastrointestinal Verified 02/06/25 02:26 Upset trimethoprim AdvReac Unknown Gastrointestinal Verified 02/06/25 02:26 Upset prochlorperazine (From AdvReac Muscle Verified 02/06/25 02:26 Compazine) Spasms Sulfa (Sulfonamide AdvReac Gastrointestinal Verified 02/06/25 02:26 Antibiotics) Upset Review of Systems 2 Review of Systems: All systems are reviewed and are negative unless stated otherwise in the HPI. [facility] Past Medical History Medical History Kidney infarction Chronic pancreatitis Cyclical vomiting Anxiety Depression Kidney stones Hypertension GERD (gastroesophageal reflux disease) Cyclic vomiting syndrome IBD (inflammatory bowel disease) Gastroenteritis Pancreatitis Colitis Surgical History Surgical History Hx of cholecystectomy Family History Family History Grandparent Acute myocardial infarction Social History Social History Smoking packs per day: 1 Smoking cigarettes per day: 20.0 Years smoked: 20 Smoking pack-years: 20.00 Smoking status: Current every day smoker Tobacco type: cigarettes Alcohol intake: current Drinks per week: 3 Substance use: current Substance use type: marijuana Last use: PROBABLY ABOUT A WEEK AGOago Lack of Transportation: No Lack of Food: Never True Current Housing: I Have Housing Concerned About Future Housing: No Difficulty Paying Gas/Electric Bills: No Difficulty Paying for Meds: No Currently Unemployed: No Education: High School Diploma/GED Difficulty w/ Childcare or Family Care: No Living arrangements: alone Gender identity (if verbalized by the patient): Male Sexual Orientation (if Verbalized by the Patient): Straight or Heterosexual Spiritual care concerns: No Exam 2 Narrative: General: Alert, awake, afebrile, in distress secondary to pain. HEENT: PERRL, no rhinorrhea, no post nasal drip, oropharynx clear. Neck: Trachea midline, no JVD, no lymphadenopathy. Cardiovascular: Regular rate and rhythm, no murmurs, rubs or gallops, no peripheral edema. Respiratory: Clear to auscultation bilaterally, no tachypnea, no wheezing, no rhonchi, no rubs, no respiratory distress. Abdomen: Soft, nontender, nondistended, no rebound, no guarding, no peritoneal signs. Musculoskeletal: No joint swelling or deformity, normal muscle tone. Skin: No rashes or petechia, no signs of infection. Psychiatric: Alert and oriented, normal behavior and judgment for situation. Neurological: Alert and oriented to person, place, and time. Follows all commands. No focal deficits, speech is clear and fluent. Course Vital Signs Vital signs: Vital Signs Temperature 98.5 F 02/06/25 02:23 Pulse Rate 75 02/06/25 02:23 Respiratory Rate 18 02/06/25 02:23 Blood Pressure 174/115 H 02/06/25 02:23 Pulse Oximetry 97 02/06/25 02:23 Oxygen Delivery Room Air 02/06/25 02:23 Temperature 98.5 F 02/06/25 02:23 Pulse Rate 75 02/06/25 02:23 Respiratory Rate 18 02/06/25 02:23 Blood Pressure 174/115 H 02/06/25 02:23 Pulse Oximetry 97 02/06/25 02:23 Oxygen Delivery Room Air 02/06/25 02:23 MDM - Abdominal Pain MDM Narrative Medical decision making narrative: The patient was evaluated by myself in the emergency department. History is obtained from patient who is an independent historian and physical exam was performed. External medical records were reviewed at this time. IV was established and pertinent tests were ordered. Patient was administered 4 mg IV Zofran, 15 mg of IV Toradol, 20 mg of IV Pepcid and 1 L IV fluid bolus with normal saline. Laboratory results obtained revealing no acute process, lipase normal. No CT scan was obtained at this time as patient has had 2 CT scans within the last 10 days both revealing no acute process. Differential diagnosis considerations include narcotic seeking behavior, chronic pancreatitis, peptic ulcer disease, gastritis, cholecystitis. Comorbidities impacting this visit include history of pancreatitis. I have evaluated and discussed social determinants of health with the patient that could potentially impact subsequent diagnosis and treatment plans. On repeat assessment of the patient, reevaluation revealed that the patient is doing well and is in no acute distress. Patient symptoms have improved since he arrived to our emergency department. Repeat vital signs were all reviewed and noted to be stable. Differential diagnosis and treatment plan were discussed with the patient at bedside. Patient agrees with discussion and after shared medical decision making agrees with discharge. All questions were answered to the patient's satisfaction. Patient will follow up with GI in 3-5 days. Patient was provided with strict return precautions and instructed to return to the emergency department if any new or worsening symptoms develop. The patient was discharged in stable condition. Lab Data 02/06/25 02:30 02/06/25 02:30 Labs: Lab Results 02/06/25 02/06/25 Range/Units 02:30 02:38 WBC 13.6 H (4.5-10.0) K/mm3 RBC 4.84 (4.6-6.20) M/mm3 Hgb 14.1 (14.0-18.0) g/dL Hct 42.7 (42.0-52.0) % MCV 88.2 (80-100) fl MCH 29.1 (26-34) pg MCHC 33.0 (32-36) g/dl RDW 15.1 H (11.5-14.5) % Plt Count 287 (150-375) k/mm3 MPV 9.6 (7.4-10.4) fl Immature Gran % (Auto) 0.3 (0-0.5) % Neut % (Auto) 61.3 (45.5-73.1) % Lymph % (Auto) 25.8 (18.3-44.2) % [place] % (Auto) 10.3 H (2.6-8.5) % Eos % (Auto) 1.8 (0-4.4) % Baso % (Auto) 0.5 (0.2-1.2) % Lymph # (Auto) 3.51 H (0.9-3.2) K/mm3 [place] # (Auto) 1.4 H (0.1-0.6) K/mm3 Eos # (Auto) 0.3 (0-0.3) K/mm3 Baso # (Auto) 0.1 (0.0-0.1) K/mm3 Abs Immat Gran (auto) 0.04 H (0.00-0.031) K/mm3 Absolute Neuts (auto) 8.4 H (1.3-6.7) K/mm3 Absolute Nucleated RBC 0.000 (0.0-0.012) K/mm3 Nucleated RBC % 0.0 (0.0-0.2) % Sodium 138 (137-145) mmol/L Potassium 4.1 (3.4-5.0) mmol/L Chloride 105 (98-107) mmol/L Carbon Dioxide 26 (22-30) mmol/L Anion Gap 7 (4-12) mmol/L BUN 8 L (9-20) mg/dL Creatinine 0.96 (0.7-1.3) mg/dL Estim Creat Clear Calc 84 ml/min Estimated GFR > 60 (59 - ) Glucose 103 (65-110) mg/dL Calcium 9.1 (8.4-10.2) mg/dL Total Bilirubin 0.4 (0.2-1.3) mg/dL AST 25 (17-59) U/L ALT 18 (6-50) U/L Alkaline Phosphatase 73 (38-126) U/L Total Protein 7.3 (6.3-8.2) g/dL Albumin 4.4 (3.5-5.1) g/dL Lipase 258 (23-300) U/L Urine Color Yellow (Yellow) Urine Appearance Cloudy H (Clear) Urine pH 6.5 (5.0-9.0) Ur Specific [place] 1.016 (1.001-1.035) Urine Protein Negative (Negative) mg/dL Urine Glucose (UA) Negative (Negative) mg/dL Urine Ketones Negative (Negative) mg/dL Ur Blood (Man) Negative (Negative) Urine Nitrate Negative (Negative) Urine Bilirubin Negative (Negative) Urine Urobilinogen 0.2 (<2.0) mg/dL Leukocyte Esterase Rfl Negative (Negative) CHRIS/UL Urine RBC 0-2 (0-2) /hpf Urine WBC 0-5 (0-3) /hpf Ur Squamous Epith Cells None seen (Few) /hpf Urine Bacteria None seen /hpf Urine Casts 0-2 Discharge Plan Discharge Clinical Impression: Nausea and vomiting, Abdominal pain, chronic, epigastric Patient Disposition: Home Condition: Improved Instructions: Antibiotic Form, Abdominal Pain (ED) Additional Instructions: Please follow up with your family doctor within the next 3-5 days. Return to the ED if any new or worsening symptoms develop. Your instructed follow-up with a terminal system operator and provided with a referral regarding your chronic abdominal pain. Patient Language: Khmer Prescriptions: No Action omeprazole 20 mg capsule,delayed release(DR/EC) 20 mg PO DAILY Qty: 14 0RF ondansetron 4 mg tablet,disintegrating 4 mg PO Q8H PRN (Reason: nausea and vomiting) Qty: 14 0RF dicyclomine 20 mg tablet 20 mg PO QID Qty: 20 0RF promethazine 25 mg tablet 25 mg PO Q6H PRN (Reason: nausea and vomiting) Qty: 20 0RF ondansetron 4 mg tablet,disintegrating 4 mg PO Q8H PRN (Reason: nausea and vomiting) Qty: 10 0RF hyoscyamine sulfate [Levsin] 0.125 mg tablet 0.125 mg PO QID Qty: 14 0RF ondansetron 4 mg tablet,disintegrating 4 mg PO Q6H PRN (Reason: nausea and vomiting) Qty: 10 0RF alum-mag hydroxide-simeth [Maalox Advanced] 200-200-20 mg/5 mL suspension 10 ml PO QID PRN (Reason: dyspepsia) Qty: 300 0RF Rx Instructions: administer between meals and at bedtime ondansetron 4 mg tablet,disintegrating 4 mg PO Q8H PRN (Reason: nausea and vomiting) Qty: 10 0RF dicyclomine 20 mg tablet 20 mg PO TID PRN (Reason: abdominal pain) Qty: 20 0RF ondansetron 4 mg tablet,disintegrating 4 mg PO Q8H PRN (Reason: nausea and vomiting) Qty: 10 0RF dicyclomine 20 mg Tablet 20 mg PO BID Patient Comments: HAVE NOT HAD A DOSE. UNABLE TO OBTAIN FROM HIS PHARMACY Eliquis 5 mg Tablet 5 mg PO BID dicyclomine 20 mg tablet 20 mg PO BID Qty: 30 0RF famotidine [Pepcid] 20 mg tablet 20 mg PO BID 42 Days Qty: 84 0RF ondansetron 4 mg tablet,disintegrating 4 mg PO Q8H PRN (Reason: nausea and vomiting) Qty: 10 0RF dicyclomine 20 mg tablet 20 mg PO TID PRN (Reason: abdominal pain) Qty: 20 0RF amoxicillin-pot clavulanate 875-125 mg tablet 1 tablet PO Q12H Qty: 14 0RF pantoprazole 40 mg tablet,delayed release (DR/EC) 40 mg PO HS Qty: 14 0RF famotidine [Pepcid] 20 mg tablet 20 mg PO DAILY Qty: 30 0RF ondansetron 4 mg tablet,disintegrating 4 mg PO Q6H PRN (Reason: nausea and vomiting) 3 Days Qty: 12 0RF Follow-up/Referrals: John,Td Lewis MD [Primary Care Provider, Unknown] Da Cota MD [Physician, Gastroenterology] - 3 Days Time of Disposition: 03:22
[2025-02-06 03:37] VITALS: BP 153/90; PULSE 65; RESP 16; O2SAT 99
== END 2025-02-06 03:37 | disposition home or self-care (01) ==
PROVIDERS: Emergency Provider Emergency Medicine; PCP Family Medicine
DX: R11.2 Nausea with vomiting, unspecified (principal); R10.13 Epigastric pain; G89.29 Other chronic pain; F17.210 Nicotine dependence, cigarettes, uncomplicated; F12.90 Cannabis use, unspecified, uncomplicated
CPT/HCPCS: 36415; 80053; 81001; 83690; 85025; 96361; 96374; 96375; 99284; J1885; J2405; J7030

== ENCOUNTER 2025-02-11 20:28 | Emergency (ER) | payer MEDICAID, SELFPAY ==
--- OUTSIDE RECORDS SUMMARY | 2023-09-21 09:30 | XMS_ITS ---
Author Organization [facility] Address [address] [place] [address] Care Team Providers Care Pocket Maker Name Role Phone John TUCKER, Td Primary Care Provider Unavaila jenny FIGUEROA VACUUM TRUCK DRIVER, NATALIYA Unavailable [phone] IFRAH TUCKER, BRODERICK Unavailable [phone] REASON FOR VISIT ERCP INPT Encounters Encounter Location Date Provider Diagnosis [facility] - Op [address] Sched[address] [place], [place] [id number] 09/21/2023 BRODERICK RG Plan Of Treatment No Information Progress Notes * Donovan BROWN MDOB: 2 (44 yo M)Acc No.[id number]:09/21/2023 Patient: Donovan HASSAN Provider: William Rg MD, FASGE :1980 A ge:43 Y S ex:Male Date:09/21/2023 Address:[address] [id number] Pcp:dT Lopez MD * * Electronic signature of ROSETTE RG MD, MD on 02/11/2025 at 09:32 PM EDT Sign off status: Pending * Provider: William Rg MD, FASGE Date: 0 09/21/2023 Generated for Printi ng/Faxing/eTransmitting on: 1 09:32 PM EDT
--- OUTSIDE RECORDS SUMMARY | 2023-09-23 10:00 | XMS_ITS ---
Author Organization [facility] Address [address] [place] [address] Care Team Providers Care Electrolog Operator Name Role Phone John TUCKER, Td Primary Care Provider Unavaila jenny FIGUEROA BUSINESS ACCOUNT MANAGER, NATALIYA Unavailable IFRAH TUCKER, BRODERICK Unavailable REASON FOR VISIT ERCP stent pull INPT Encounters Encounter Location Date Provider Diagnosis [facility] - Op [address] Sched[address] [place], [place] [phone] 09/23/2023 BRODERICKNICKY RG Plan Of Treatment No Information Progress Notes * Donovan BROWN MDOB: 2 (44 yo M)Acc No.[id number]:09/23/2023 Patient: Donovan HASSAN Gaby Provider: William Rg MD, FASGE :1980 A ge:43 Y S ex:Male Date:09/23/2023 Address:[address] [id number] Pcp:Td Lopez MD * * Electronic signature of ROSETTE RG MD, MD on 02/11/2025 at 09:32 PM EDT Sign off status: Pending * Provider: William Rg MD, FASGE Date: 0 09/23/2023 Generated for Printi ng/Faxing/eTransmitting on: 1 09:32 PM EDT
--- OUTSIDE RECORDS SUMMARY | 2024-02-29 04:00 | XMS_ITS ---
Author Organization [facility] Address [address] [place] [address] Care Team Providers Care Chair Springer Name Role Phone John TUCKER, Td Primary Care Provider Tucker FIGUEROA NP, NATALIYA Porras REASON FOR VISIT FU ER Visit Encounters Encounter Location Date Provider Diagnosis [facility] [address] [place] [address] 02/29/2024 NATALIYA FIGUEROA Plan Of Treatment No Information Progress Notes * Donovan BROWN MDOB: 2 (44 yo M)Acc No.[id number]:02/29/2024 Progress Notes Patient: Donovan HASSAN Appointment Provider: Enrrique Figueroa CNP :1980 A ge:43 Y S ex:Male Date:02/29/2024 [facility] [facility] Pcp:Td Lopez MD Subjective: * Chief Complaints: * 1 . FU ER Visit. * Medical History: Objective: * Vitals: Assessment: Plan: * Treatment: * * Electronic signature of AMANDA FIGUEROA NP, MSN ODD JOB LABORER-BC on 02/11/2025 at 09:32 PM EDT Sign off status: Pending * Appointment Provider: Enrrique Figueroa CNP Date: Generated for Printing/Faxing/eTransmitting on: 09:32 PM EDT
--- OUTSIDE RECORDS SUMMARY | 2025-02-10 02:18 | XMS_ITS | Encounter Summary ---
Author Organization [facility] Healthcare Address [address] [place] [address] Care Team Providers Care Nascar Driver Name Role Phone Td Lopez MD Primary Care Provider + Angie Woodard MD Unavailable [phone] Vimal Woodruff MD Unavailable [phone] Reason for Visit * Reason Comments Abdominal Pain Encounter Details Date Type Department Care Team (Late st Contact Info) Description 02/10/2025 2:18 AM CDT - 02/10/2025 6:19 AM CDT Emergency [facility] Emergency Department [facility] [place], [place] [address] Kingsley Villanueva DO [address] [place] [address] Chronic abdominal pain (Primary Dx) Discharge Disposition: Discharge to home or self care Social History Tobacco Use Types Packs/Day Years Used Date Smoking Tobacco: Every Day Cigarettes Smokeless Tobacco: Never Alcohol Use Standard Drinks/Week Comments Not Currently 0 (1 standard drink = 0.6 oz pur e alcohol) [facility] Utilities Answer Date Recorded In the past 12 months has [employer], gas, oil, or water [employer] threatened to shut off services in your [...] often do you attend chur ch or sikh services? Never 12/01/2024 Do you belong to [...] slept in a correction (including now)? No 09/21/2023 PHQ-9 Answer Date [...] time in the past 12 m [facility], were you homeless or living in a correction (including now)? No 12/01/2024 Personal Safety Answer Date Recorded Have you ever been in or are you currently in a harmful physical or emotional relationship or is someone making you feel afraid or unsafe? 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 Gender Identity Not on file Sexual Orientation Not on file documented as of this encounter Last Filed Vital Signs Vital Sign Reading Time Taken Comments Blood Pressure 104/82 02/10/2025 6:15 AM CDT Pulse 55 02/10/2025 6:15 AM CDT Temperature 37.1 C (98.8 F) 02/10/2025 12:55 AM CDT Respiratory Rate 16 02/10/2025 6:15 AM CDT Oxygen Saturation 97% 02/10/2025 6:15 AM CDT Inhaled Oxygen Concentration - - Weight 70.3 kg (154 lb 15.7 oz) 025 12:55 AM CDT Height - - Body Mass Index 22.24 02/07/2025 4:32 AM CDT documented in this encounter Discharge Instructions * Attachments The following attachments cannot be sent through Care Everywhere. * Chronic Abdominal Pain (AfterCare(R) Instructions(ER/ED)) (Icelandic) documented in this encounter Medications at Time of Discharge famotidine (PEPCID) 20 mg tablet Take 1 tablet (20 mg total) by mouth daily dicyclomine (BENTYL) 20 mg tabletIndications:En terocolitis Take 1 tablet (20 mg total) by mouth 2 (two) times a day as needed (Abdominal cramping) 30 tablet 10/14/2024 ketorolac (TORADOL) 10 mg tablet Take 1 tablet (10 mg total) by mouth every 6 (six) hours as needed for pain 20 tablet 01/28/2025 ondansetron ODT (ZOFRAN-ODT) 4 mg disintegrating tablet Take 1 tablet (4 mg total) by mouth every 6 (six) hours as needed for nausea or vomiting 20 tablet 01/22/2025 documented as of this encounter Discharge Disposition Disposition Code Departure Means Destination Comment s Discharge to home or self care documented in this encounter ED Notes * Kingsley Villanueva, DO - 02/10/2025 3:42 AM CDT HPI Chief Complaint Patient presents with Abdominal Pain Donovan Bailey is a 44 y.o. male w/ PMHx including tobacco use disorder, IBS, drug abuse, GERD, andother PMHx as below presenting to the ED w/ c/o abdominal pain. 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 The pt describes a burning, sharp pain. The pt reports taking toradol at home, but it did not provide any relief. The pt also reports nausea, but denies fever, chills, as well as any drug or alcohol use. Pt denies any other symptoms. Pt has no other acute complaints. History provided by: Patient and medical records Patient History: Past Medical History: Diagnosis Date Anxiety and depression Cannabis abuse with cannabis-induced disorder Cyclic vomiting syndrome Drug-seeking behavior GERD (gastroesophageal reflux disease) Manipulative behavior Pancreatic insufficiency Pancreatitis Sphincter of Oddi dysfunction Past Surgical History: Procedure Laterality Date ERCP LAPAROSCOPIC CHOLECYSTECTOMY Family History Problem Relation Age of Onset Osteoarthritis Mother Family history of osteoarthritis - (Added by TW Conv) Social History Tobacco Use Smoking status: Every Day Current packs/day: 1.00 Types: Cigarettes Smokeless tobacco: Never Substance and Sexual Activity Drug use: Yes Types: Marijuana Sexual activity: Defer Alcohol Use: Not At Risk (11/15/2023) AUDIT-C Frequency of Alcohol Consumption: Never Average Number of Drinks: Patient does not drink Frequency of Binge Drinking: Never Current Facility-Administered Medications: cloNIDine (CATAPRES) tablet 0.2 mg, 0.2 mg, oral, Once droPERidol (INAPSINE) injection 1.25 mg, 1.25 mg, intravenous, Once Current Outpatient Medications: dicyclomine (BENTYL) 20 mg tablet famotidine (PEPCID) 20 mg tablet ketorolac (TORADOL) 10 mg tablet ondansetron ODT (ZOFRAN-ODT) 4 mg disintegrating tablet Review of Systems Review of Systems Gastrointestinal: Positive for abdominal pain and nausea. All systems reviewed and are negative or noncontributory for this patients presentation today otherthan as stated in the HPI . Physical Exam ED Triage Vitals Temp Pulse Resp BP SpO2 02/10/255402/10/255402/10/255402/10/255402/10/2554 37.1 ??C (98.8 ??F) 92 20 (!) 173/115 100 % Temp src Heart Rate Source Patient Position BP Location FiO2 (%) -- 02/10/25 0230 02/10/250 02/10/25229 -- Monitor HOB 30 degrees Left arm Height Height Method Weight Weight Method -- -- 02/10/2554 -- 70.3 kg (154 lb 15.7 oz) Physical Exam Vitals and nursing note reviewed. Constitutional: General: He is not in acute distress. Appearance: Normal appearance. He is not ill-appearing. HENT: Head: Normocephalic and atraumatic. Right Ear: External ear normal. Left Ear: External ear normal. Nose: Nose normal. Eyes: Extraocular Movements: Extraocular movements intact. Conjunctiva/sclera: Conjunctivae normal. Pupils: Pupils are equal, round, and reactive to light. Cardiovascular: Rate and Rhythm: Normal rate and regular rhythm. Pulmonary: Effort: Pulmonary effort is normal. No respiratory distress. Abdominal: General: Abdomen is flat. There is no distension. Tenderness: There is abdominal tenderness. There is guarding. There is no rebound. Hernia: No hernia is present. Comments: Mid abdominal pain, tender to palpation Musculoskeletal: General: Normal range of motion. Cervical back: Normal range of motion and neck supple. Skin: General: Skin is warm and dry. Neurological: General: No focal deficit present. Mental Status: He is alert and oriented to person, place, and time. Psychiatric: Behavior: Behavior normal. Procedures MDM Labs Reviewed CBC WITH AUTO DIFFERENTIAL - Abnormal Result Value WBC 10.56 (*) Hgb 13.8 Hct 40.2 Plt 281 MPV 10.1 RBC 4.59 MCV 87.6 MCH 30.1 MCHC 34.3 RDW CV 15.4 (*) RDW SD 49.1 (*) NRBC abs 0.00 DIFFERENTIAL AUTO - Abnormal Neutrophil abs 5.93 Imm gran abs 0.04 Lymphocyte abs 3.01 Monocyte abs 1.36 (*) Eosinophil abs 0.17 Basophil abs 0.05 Neutrophil pct 56.1 Imm gran pct 0.4 Lymphocyte pct 28.5 Monocyte pct 12.9 Eosinophil pct 1.6 Basophil pct 0.5 URINALYSIS AND REFLEX TO MICROSCOPIC AND CULTURE ETHANOL COMPREHENSIVE METABOLIC PANEL Sodium 140 Potassium, pl 3.7 Chloride 103 CO2 25 Anion gap 12 BUN 9 Creatinine 1.01 Glucose 104 Calcium 9.8 Bilirubin, total 0.4 Protein, pl 6.5 Albumin 4.2 Alk phos 72 ALT 16 AST 18 LIPASE Lipase 37 EGFR eGFR >90 ETHANOL Ethanol <10 ETHANOL BP 113/71 (BP Location: Left arm, Patient Position: HOB 30 degrees) Pulse 78 Temp 37.1 ??C (98.8 ??F) Resp 18 Wt 70.3 kg (154 lb 15.7 oz) SpO2 98% BMI 22.24 kg/m?? MDM - Pt given toradol, zofran, IVF, droperidol, and tramadol ED Course as of 02/10/25 0450 Time: 02/107 Comment: Pt reports minimal relief following bentyl, tramadol, toradol. Will attempt droperidol By: Luis E Mulligan Dc home- f/u with PCP Clinical Impression: Chronic abdominal pain This note was prepared by Lucia Newsome, acting as a Scribe for Kingsley Villanueva DO. I electronicallysigned this note at 4:50 AM on 02/10/2025. I, Kingsley Villanueva DO, personally performed the services described in this documentation, reviewedand edited the documentation which was dictated to the scribe in my presence, and it accurately records my words and actions. Kingsley Villanueva DO 02/10/25 0610 * Kenia Evans RN - 02/10/2025 12:54 AM CDT C/o LLQ abd pain and RUQ abd pain; onset tonight at 2300. Took bentyl, zofran, toradol and pepcid at home prior to arrival at ED without relief. documented in this encounter Plan of Treatment Pending Results Name Type Priority Associated Diagnoses Date /Time Ethanol Lab STAT 02/10/2025 2:3 5 AM CDT Scheduled Orders Name Type Priority Associated Diagnoses Orde r Schedule Urinalysis reflex to microscopic and culture Urine Microbiology STAT STAT for 1 Occurrences starting 02/10/2025 until 02/10/2025 Ethanol Lab STAT Once for 1 Occurrences starting 02/10/2025 until 02/10/2025 documented as of this encounter Procedures Procedure Name Priority Date/Time Associated Diagnosis Comments EGFR STAT 02/10/2025 2:35 AM CDT LIPASE STAT 02/10/2025 2:35 AM CDT ETHANOL STAT 02/10/2025 2:35 AM CDT COMPREHENSIVE METABOLIC PANEL STAT 02/10/2025 2:35 AM CDT DIFFERENTIAL AUTO STAT 02/10/2025 1:0 5 AM CDT CBC WITH AUTO DIFFERENTIAL STAT 02/10/2025 1:05 AM CDT documented in this encounter Results * Ethanol (02/10/2025 2:35 AM CDT) Ethanol <10 <=10 mg/dL Comment: Interpretive Data Legal limit of intoxication > or = 80 mg/dL Levels > or = 400 mg/dL are potentially TOXIC. Current interpretive data was last revised on 2018. Testing performed by: [address] [address] Blood 02/10/2025 2:35 AM CDT 02/10/2025 2:38 AM CDT Kingsley Quinnantonette DO LAB BLOOD ORDERABLES Final Res ult Performing Organization Address [facility] Co de Phone Number NEEL [address] [place] [address] * eGFR (02/10/2025 2:35 AM CDT) eGFR >90 >=60 mL/min/1. 73 [...] was last reviewed 2021. Testing performed by: [address] [address] Blood 02/10/2025 2:35 AM CDT 02/10/2025 2:38 AM CDT Kingsley Villanueva DO LAB BLOOD ORDERABLES Final Res ult Performing Organization Address [facility]/ZIP Co de Phone Number NEEL [address] Department [place] [address] * Lipase (02/10/2025 2:35 AM CDT) Lipase 37 10 - 99 Units/L Comment:Testing performed by : [address] [address] Blood 02/10/2025 2:35 AM CDT 02/10/2025 2:38 AM CDT Kingsley Villanueva DO LAB BLOOD ORDERABLES Final Res ult [facility] [address] [facility] [place] [address] * Comprehensive metabolic panel (02/10/2025 2:35 AM CDT) Pathologist [facility] Sodium 140 135 - 145 mmol/L Comment:Testing performed by : [address] [address] Potassium, pl 3.7 3.3 - 4.9 mmol/L NEEL Comment:Testing performed by : [address] [address] Chloride 103 97 - 110 mmol/L NEEL Comment:Testing performed by : [address] [address] CO2 25 22 - 32 mmol/L NEEL Comment:Testing performed by : [address] [address] Anion gap 12 2 - 15 mmol/L NEEL Comment:Testing performed by : [address] [address] BUN 9 6 - 25 mg/dL NEEL Comment:Testing performed by : [address] [address] Creatinine 1.01 0.80 - 1.30 mg/dL NEEL Comment:Testing performed by : [address] [address] Glucose 104 70 - 199 mg/dL NEEL [...] was last revised 2022. Testing performed by: [address] [address] Calcium 9.8 8.5 - 10.3 mg/dL NEEL Comment:Testing performed by : [address] [address] Bilirubin, total 0.4 0.1 - 1.2 mg/dL NEEL Comment:Testing performed by : [address] [address] Protein, pl 6.5 6.5 - 8.5 g/dL NEEL Comment:Testing performed by : [address] [address] Albumin 4.2 3.5 - 5.0 g/dL NEEL Comment:Testing performed by : [address] [address] Alk phos 72 40 - 130 Units/L NEEL Comment:Testing performed by : [address] [address] ALT 16 7 - 55 Units/L NEEL Comment:Testing performed by : [address] [address] AST 18 10 - 50 Units/L NEEL Comment:Testing performed by : [address] [address] Blood 02/10/2025 2:35 AM CDT 02/10/2025 2:38 AM CDT us Kingsley Villanueva DO LAB BLOOD ORDERABLES Final Res ult NEEL [address] [facility] Department of [place], [place] [id number] * (ABNORMAL) Differential, auto (02/10/2025 1:05 AM CDT) Neutrophil abs 5.93 1.50 - 6.50 K/cumm Comment:Testing performed by : [address] [address] Imm gran abs 0.04 0.00 - 0.10 K/cumm NEEL Comment:Testing performed by : [address] [address] Lymphocyte abs 3.01 0.80 - 3.30 K/cumm NEEL Comment:Testing performed by : [address] [address] Monocyte abs 1.36(H) 0.20 - 0.80 K/cumm NEEL Comment:Testing performed by : [address] [address] Eosinophil abs 0.17 0.00 - 0.50 K/cumm NEEL Comment:Testing performed by : [address] [address] Basophil abs 0.05 0.00 - 0.10 K/cumm [facility] Comment:Testing performed by : [address] [address] Neutrophil pct 56.1 % [facility] Comment: Interpretive Data Percent cell count reference ranges are not reported, since discordance with absolute values may lead to misinterpretation of CBC data. Current Interpretive Data was last revised on 2017. Testing performed by: [address] [address] Imm gran pct 0.4 % [facility] Comment: Interpretive Data Percent cell count reference ranges are not reported, since discordance with absolute values may lead to misinterpretation of CBC data. Current Interpretive Data was last revised on 2017. Testing performed by: [address] [address] Lymphocyte pct 28.5 % [facility] Comment: Interpretive Data Percent cell count reference ranges are not reported, since discordance with absolute values may lead to misinterpretation of CBC data. Current Interpretive Data was last revised on 2017. Testing performed by: [address] [address] Monocyte pct 12.9 % NEEL Comment: Interpretive Data Percent cell count reference ranges are not reported, since discordance with absolute values may lead to misinterpretation of CBC data. Current Interpretive Data was last revised on 2017. Testing performed by: [address] [address] Eosinophil pct 1.6 % NEEL Comment: Interpretive Data Percent cell count reference ranges are not reported, since discordance with absolute values may lead to misinterpretation of CBC data. Current Interpretive Data was last revised on 2017. Testing performed by: [address] [address] Basophil pct 0.5 % NEEL Comment: Interpretive Data Percent cell count reference ranges are not reported, since discordance with absolute values may lead to misinterpretation of CBC data. Current Interpretive Data was last revised on 2017. Testing performed by: [address] [address] Blood 02/10/2025 1:05 AM CDT 02/10/2025 1:14 AM CDT us Kingsley Villanueva DO LAB BLOOD ORDERABLES Final Res ult [facility] [address] [facility] Department [place] [address] * (ABNORMAL) CBC with auto differential (02/10/2025 1:05 AM CDT) WBC 10.56(H) 3.80 - 9.90 K/cumm Comment:Testing performed by : [address] [address] Hgb 13.8 13.0 - 17.5 g/dL NEEL SMITH Comment:Testing performed by : [address] [address] Hct 40.2 38.9 - 50.3 % NEEL Comment:Testing performed by : [address] [address] Plt 281 150 - 400 K/cumm NEEL SMITH Comment:Testing performed by : [address] [address] MPV 10.1 9.1 - 12.3 fL NEEL SMITH Comment:Testing performed by : [address] [address] RBC 4.59 4.30 - 5.80 M/cumm NEEL SMITH Comment:Testing performed by : [address] [address] MCV 87.6 81.3 - 96.4 fL NEEL SMITH Comment:Testing performed by : [address] [address] MCH 30.1 27.1 - 33.3 pg NEEL SMITH Comment:Testing performed by : [address] [address] MCHC 34.3 32.3 - 35.7 g/dL NEEL Comment:Testing performed by : [address] [address] RDW CV 15.4(H) 11.1 - 14.9 % NEEL Comment:Testing performed by : [address] [address] RDW SD 49.1(H) 35.7 - 48.1 fL NEEL SMITH Comment:Testing performed by : [address] [address] NRBC abs 0.00 0.00 - 0.01 K/cumm NEEL Comment:Testing performed by : [address] [address] Blood Venous blood specimen / Unknown 02/10/2025 1:05 AM CDT 02/10/2025 1:14 AM CDT us Kingsley Villanueva DO LAB BLOOD ORDERABLES Final Res ult NEEL SMITH [address] [facility] Department [place] [address] documented in this encounter Visit Diagnoses Diagnosis Chronic abdominal pain- Primary Abdominal pain, unspecified site documented in this encounter Administered Medications Inactive Administered Medications - up to 3 most recent administrations Medication Order MAR Action Action Date Dose Rate Site dicyclomine (BENTYL) tablet 20 mg 20 mg, oral, Once, On Thu02/10/25 at 0339, For 1 dose Given 02/10/2025 3:49 AM CDT 20 mg droPERidol (INAPSINE) injection 1.25 mg 1.25 mg, intravenous, Administer over 5 Minutes, Once, On Thu02/10/25 at 0448, For 1 dose Given 02/10/2025 4:55 AM CDT 1.25 mg ketorolac (TORADOL) 30 mg/mL injection 30 mg 30 mg, intravenous, Once, On Thu02/10/25 at 0228, For 1 dose, For Adult IV push, administer over 15 seconds Given 02/10/2025 2:40 AM CDT 30 mg ondansetron (ZOFRAN) injection 4 mg 4 mg, intravenous, Administer over 2 Minutes, Once, On Thu02/10/25 at 0228, For 1 dose Given 02/10/2025 2:40 AM CDT 4 mg sodium chloride 0.9% bolus 1,000 mL 1,000 mL, intravenous, at 999 mL/hr, Administer over 1 Hours, Once, On Thu02/10/25 at 0228, For 1 dose New Bag 02/10/2025 2:40 AM CDT 1,000 mL 999 mL/hr sodium chloride 0.9% bolus 1,000 mL 1,000 mL, intravenous, at 999 mL/hr, Administer over 1 Hours, Once, On Thu02/10/25 at 0519, For 1 dose New Bag 02/10/2025 5:33 AM CDT 1,000 mL 999 mL/hr traMADoL (ULTRAM) tablet 100 mg 100 mg, oral, Once, On Thu02/10/25 at 0412, For 1 dose Given 02/10/2025 4:20 AM CDT 100 mg documented in this encounter Active and Recently Administered Medications Times are shown in CDT. Scheduled Medication Order 02/08/2025 02/09/2025 02/10/2025 cloNIDine (CATAPRES) tablet 0.2 mg 0.2 mg, oral, Once, On Thu02/10/25 at 0225, For 1 dose 0301 (Not Given - Pr ovider: Petros Beltran RN - Reason: Other - Comment: bp WNL) dicyclomine (BENTYL) tablet 20 mg (COMPLETED) 20 mg, oral, Once, On Thu02/10/25 at 0339, For 1 dose 0349 (Given - Provid er: Petros Beltran RN) droPERidol (INAPSINE) injection 1.25 mg (COMPLETED) 1.25 mg, intravenous, Administer over 5 Minutes, Once, On Thu02/10/25 at 0448, For 1 dose 0455 (Given - Provid er: Petros Beltran RN) ketorolac (TORADOL) 30 mg/mL injection 30 mg (COMPLETED) 30 mg, intravenous, Once, On Thu02/10/25 at 0228, For 1 dose, For Adult IV push, administer over 15 seconds 0240 (Given - Provid er: Petros Beltran RN) ondansetron (ZOFRAN) injection 4 mg (COMPLETED) 4 mg, intravenous, Administer over 2 Minutes, Once, On Thu02/10/25 at 0228, For 1 dose 0240 (Given - Provid er: Petros Beltran RN) sodium chloride 0.9% bolus 1,000 mL (COMPLETED) 1,000 mL, intravenous, at 999 mL/hr, Administer over 1 Hours, Once, On Thu02/10/25 at 0228, For 1 dose 0240 (New Bag - Prov ider: Petros Beltran RN)0354 (Stopped - Provider: Petros Beltran RN) sodium chloride 0.9% bolus 1,000 mL (COMPLETED) 1,000 mL, intravenous, at 999 mL/hr, Administer over 1 Hours, Once, On Thu02/10/25 at 0519, For 1 dose 0533 (New Bag - Prov ider: Petros Beltran RN)0616 (Stopped - Provider: Petros Beltran RN) traMADoL (ULTRAM) tablet 100 mg (COMPLETED) 100 mg, oral, Once, On Thu02/10/25 at 0412, For 1 dose 0420 (Given - Provid er: Petros Beltran RN) documented in this encounter Orders Medications Ordered That Byron ht Not Have Been Administered Count Last Ordered Date First Ordered Date cloNIDine (CATAPRES) tablet 0.2 mg 1 2024 Lab Orders Without Results Count Last Ordered D ate First Ordered Date ETHANOL 1 02/10/2025 IV Count Last Ordered Date First Orde red Date SALINE LOCK IV 1 02/10/2025 documented in this encounter Care Teams Nascar Driver Relationship Specialty Start Date End Date Td Lopez MD [address] [facility] [address] [place] [address] PCP - General Family Medicine 11/09/20 Angie Woodard MD [address] [facility] [address] [place] [address] Consulting Physician Gastroenterology 07/17/21 Vimal Woodruff MD [address] [facility] [address] [place] [address] Consulting Physician Gastroenterology 02/10/22 documented as of this encounter
--- NOTE | ~2025-02-11 | CT_ITS ---
EXAMINATION: CTA abdomen pelvis DATE: 02/12/2025 03:20 INDICATION: Upper abdominal pain. TECHNIQUE: Computed tomographic angiography (CTA) of the abdomen and pelvis was performed with 100 mL Omnipaque-350 intravenous contrast. Automated exposure control and iterative reconstruction technique were employed. The dose-length product was 305.40 mGy-cm. Maximum intensity projection 3D-reconstructions of the aorta and other arteries were constructed by the technologist on a separate workstation. COMPARISON: CT abdomen and pelvis 02/03/2025 FINDINGS: The visualized portions of the lung bases demonstrate mild atelectasis. No pleural effusion. The heart size is normal. No pericardial effusion. Pneumobilia is noted, likely secondary to sphincterotomy. There are changes of cholecystectomy. The spleen, pancreas, adrenal glands, and left kidney are normal. There is cortical thinning of right kidney. There are small bilateral inguinal hernias containing fat. There are no dilated loops of bowel. The appendix is normal. There are no pathologically enlarged lymph nodes. There is no ascites. There is no significant stenosis of celiac axis, superior mesenteric artery, the renal arteries, or inferior mesenteric artery. There is mild lumbar spondylosis. IMPRESSION: 1. No etiology for the patient's symptoms. Reviewed, dictated and finalized at location E.
[2025-02-11 20:30] VITALS: BP 190/114; PULSE 95; RESP 20; TEMP 36.6; O2SAT 97
--- OUTSIDE RECORDS SUMMARY | 2025-02-11 20:32 | XMS_ITS | Clinical Summary ---
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 Gender Identity Not on file Sexual Orientation Not on file Last Filed Vital Signs Vital Sign Reading Time Taken Comments Blood Pressure 119/84 07/11/2022 2:03 AM FITTER / WELDER Pulse 80 07/11/2022 2:03 AM FITTER / WELDER Temperature 36.3 C (97.4 F) 07/11/2022 2:03 AM FITTER / WELDER Respiratory Rate 18 07/11/2022 2:03 AM FITTER / WELDER Oxygen Saturation 97% 07/11/2022 2:03 AM FITTER / WELDER Inhaled Oxygen Concentration - - Weight 79.4 kg (175 lb) 07/10/2022 8:06 PM FITTER / WELDER Height 177.8 cm (5' 10) 07/10/2022 8:06 PM FITTER / WELDER Body Mass Index 25.11 07/10/2022 8:06 PM FITTER / WELDER Plan of Treatment Health Maintenance Due Date Last Done Comments HEPATITIS B VACCINES (1 of 3 - 19+ 3-dose series) 2000 HPV VACCINES (1 - 3-dose SCD M series) 2008 INFLUENZA VACCINE (#1) 2024 , 02/29/2020, 02/09/2018 COVID-19 Vaccine (4 - 2024-2 6 season) 2025 10/29/2021, 11/02/2020, 10/05/2020 DTAP/TDAP/TD VACCINES (2 - T d or Tdap) 10/30/2031 10/29/2021 Insurance [facility] MEDICAID MEDICAID [place]
--- OUTSIDE RECORDS SUMMARY | 2025-02-11 20:32 | XMS_ITS | Patient Health Record ---
Author Organization [facility] Address [address] [facility] [address] [place] [address] Care Team Providers Care Nanny Caregiver Name Role Phone John TUCKER, Td Primary Care Provider Tucker FIGUEROA DELIVERER OUTSIDE, NATALIYA Unavailable [phone] Allergies Allergen (clinical drug ingredient) Drug/Non [...] W/U Status Risk Notes Problem Chronic pancreatitis (225666929) Other chronic pancreatitis (K86.1) Active confirmed Plan Of Treatment No Information Insurance Providers Payer Name Payer Address Payer Phone Subscriber Number Group Number Insured Name Patient Relationship to Insured Coverage Start Date Coverage End Date [address] [id number] Donovan Bailey Self - patient is the insured Medical (General) History Medical History History ICD Code chronic pancreatitis cyclic vomiting hyperemesis cannabis Surgical History Surgery Date(Month/Year) cholecystectomy ERCP
--- OUTSIDE RECORDS SUMMARY | 2025-02-11 20:32 | XMS_ITS | Clinical Summary ---
Author Organization [facility] Address [facility] [place] [address] Care Team Providers Care Landscape Crew Leader Name Role Phone Td Lopez MD Primary Care Provider [phone] Allergies Active Allergy Reactions Criticality Noted Date Comments Capsaicin Other (see comment) Low 05/20/2019 Pt states it gets into his scars and causes a lot of pain Doxycycline GI Upset Low 03/29/2017 Haloperidol Other (see comment) 01/29/2022 Musculoskeletal pain Metoclopramide Myalgias 03/29/2017 Sulfa Antibiotics Myalgias,Other (see comment) Medium 03/29/2017 Reaction: neurological symptoms per patient Medications CREON [id number] units CAPSULE ENTERIC COATED PARTICLES Take 36,000 [...] pain 10/18/2022 Abdominal pain 10/18/2022 Acute pancreatitis ([facility]) 09/28/2022 Renal infarct ([facility]) 09/08/2022 Marijuana use 09/04/2022 Normocytic normochromic anemia 09/04/2022 Sphincter of Oddi dysfunction 09/04/2022 Tobacco use disorder, continuous 09/04/2022 Pancreatitis ([facility]) 09/02/2022 GI bleed 06/28/2022 Folliculitis 01/08/2022 Overview (09/04/2022): Last Assessment & Plan: - chronic, uncontrolled - start clindamycin gel daily x 7 days - ref to derm for eval. Manipulative behavior 07/14/2021 COVID-19 vaccine series completed 06/27/2021 Overview (09/04/2022): Moderna x2 Drug-seeking behavior 06/27/2021 History of 2019 novel coronavirus disease (COVID -19) 06/27/2021 Drug abuse and dependence ([facility]) 09/2020 Overview (09/04/2022): Last Assessment & Plan: - using mariajuana occasionally; has had frequent rx for opioids in ER - pt claims at least several days since last ER visit with narcotics given - record review suggests at least 2 wks - will check UDS Acute recurrent pancreatitis ([facility]) Other chronic pancreatitis ([facility]) Overview (09/04/2022): Last Assessment & Plan: - stable today - continue current medications - f/u with Dr Rosas as planned - encouraged pt to come to clinic instead of going to ER next time he has abdominal pain Duodenal papillary stenosis ([facility]) 11/27/2020 Hyperemesis 10/18/2019 Annual physical [...] Colitis 02/18/2019 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[facility]) 10/18/2018 Mild malnutrition ([facility]) 10/18/2018 Neutrophilic leukocytosis 10/18/2018 Tobacco use disorder 10/18/2018 Other chronic pancreatitis ([facility]) 02/2019 Overview (02/18/2019): Overview: Added automatically from request for surgery [id number] Chronic abdominal pain 03/30/2017 Assessment & Plan (03/30/2017 12:03 PM ETHYLENE PLANT HELPER): Acute on chronic, stable Patient with [...] Continue to advance diet as tolerated Sepsis ([facility]) 03/30/2017 Assessment & Plan (03/30/2017 12:03 PM ETHYLENE PLANT HELPER): Present on admission, resolved Lactic acid [...] 03/30/2017 Assessment & Plan (03/30/2017 12:25 AM ETHYLENE PLANT HELPER): - established, controlled - continue home fluoxetine, nortriptyline GERD (gastroesophageal reflux disease) 7 Assessment & Plan (03/30/2017 12:25 AM ETHYLENE PLANT HELPER): - established, controlled - continue home nexium Hypertension 03/30/2017 Overview (03/30/2017): - established, controlled - continue home metoprolol Assessment & Plan (03/30/2017 1:01 AM ETHYLENE PLANT HELPER): - established, controlled - continue home metoprolol Influenza 03/30/2017 Depression 03/30/2017 Overview (02/18/2019): Overview: Last Assessment & Plan: - established, controlled - continue home fluoxetine, nortriptyline Flu 03/29/2017 Assessment & Plan (03/30/2017 12:03 PM ETHYLENE PLANT HELPER): Acute, influenza A + on admission, [...] CDT - 02/01/2025 2:12 AM CDT Emergency [facility] Emergency Room [address] [place] [address] Temo Soriano MD Abdominal Pain Discharge Disposition: [...] week 09/28/2022 How often do you attend sabianist or mandaeism serv ices? Never 09/28/2022 Do you belong to any clubs o r organizations such as sabianist groups, unions, fraternal or athletic groups, or [...] and heating? Not hard at all 10/18/2022 [facility] [place] [facility] - Occupational Stress [...] slept in a intermediate (including now)? No 10/18/2022 Sex and Gender Information Value Date Recorded Sex Assigned at Male 06/21/2024 7:21 PM ETHYLENE PLANT HELPER Legal Sex Male 8:10 AM CDT [...] discharge from hospital Lifestyle No Sintia Zhao, assisted living housekeeper Procedure Name Priority Date/Time Associated Diagnosis Comments [...] DETECTED NONE DETECTED 01/31/2025 11:28 PM CDT [facility] BARBITURATES SCREEN (U) NONE DETECTED NONE DETECTED 01/31/2025 11:28 PM CDT [facility] BENZODIAZEPINES SCREEN (U) NONE DETECTED NONE DETECTED 01/31/2025 11:28 PM CDT [facility] BUPRENORPHINE SCREEN (U) NONE DETECTED NONE DETECTED 01/31/2025 11:28 PM CDT [facility] COCAINE METABOLITES (U) NONE DETECTED NONE DETECTED 01/31/2025 11:28 PM CDT [facility] METHAMPHETAMINE (U) NONE DETECTED NONE DETECTED 01/31/2025 11:28 PM CDT [facility] METHADONE (U) NONE DETECTED NONE DETECTED 01/31/2025 11:28 PM CDT [facility] OPIATE SCREEN (U) NONE DETECTED NONE DETECTED 01/31/2025 11:28 PM CDT [facility] OXYCODONE SCREEN (U) NONE DETECTED NONE DETECTED 01/31/2025 11:28 PM CDT [facility] PHENCYCLIDINE PCP (U) NONE DETECTED NONE DETECTED 01/31/2025 11:28 PM CDT [facility] CANNABINOIDS SCREEN (U) NONE DETECTED NONE DETECTED 01/31/2025 11:28 PM CDT [facility] TRICYCLIC ANTIDEPRESSANT SCREEN (U) NONE DETECTED NONE DETECTED 01/31/2025 11:28 PM CDT [facility] Comment: NOTE: RESULTS OF [...] Soriano MD URINE ORDERABLES Final Res ult [facility] [address] [place] [address], [place] [phone] * URINALYSIS, AUTO, COMPLETE (01/31/2025 11:10 PM CDT) COLOR (U) YELLOW 01/31/2025 11:30 PM CDT [facility] TRANSPARENCY HAZY 01/31/2025 11:30 PM CDT [facility] SPECIFIC GRAVITY (U) 1.015 1.000 - 1.030 01/31/2025 11:30 PM CDT [facility] U PH 8.0 5.0 - 9.0 01/31/2025 11:30 PM CDT [facility] LEUKOCYTES (U) NEGATIVE NEGATIVE 01/31/2025 11:30 PM CDT [facility] NITRITES NEGATIVE NEGATIVE 01/31/2025 11:30 PM CDT [facility] PROTEIN RANDOM (U) NEGATIVE NEGATIVE 01/31/2025 11:30 PM CDT [facility] GLUCOSE (U) NEGATIVE NEGATIVE 01/31/2025 11:30 PM CDT [facility] KETONES MG/DL (U) NEGATIVE NEGATIVE 01/31/2025 11:30 PM CDT [facility] BILIRUBIN (U) NEGATIVE NEGATIVE 01/31/2025 11:30 PM CDT [facility] BLOOD (U) NEGATIVE NEGATIVE 01/31/2025 11:30 PM CDT [facility] WBC/HPF NONE SEEN 0 - 5 /HPF 01/31/2025 11:30 PM CDT [facility] RBC/HPF NONE SEEN 0 - 5 /HPF 01/31/2025 11:30 PM CDT [facility] EPI/HPF NONE SEEN /HPF 01/31/2025 11:30 PM CDT [facility] CRYSTALS (U) FEW /HPF 01/31/2025 11:30 PM CDT [facility] Comment:AMORPHOUS MATERIAL URINE SPECIMEN OBTAINED BY CLEAN CATCH PROCEDURE / Unknown 01/31/2025 11:10 PM CDT us Temo Soriano MD URINE ORDERABLES Final Res ult [facility] [address] [place] [address], [place] [phone] * (ABNORMAL) COMPREHENSIVE METABOLIC PANEL (01/31/2025 10:49 PM CDT) Pathologist [facility] GLUCOSE 120(H) 70 - 99 MG/DL 01/31/2025 11:14 PM [facility] BUN 6(L) 7 - 18 MG/DL 01/31/2025 11:14 PM [facility] CREATININE S/P/B 1.10 0.7 - 1.3 MG/DL 01/31/2025 11:14 PM [facility] SODIUM S/P/B 141 136 - 145 MMOL/L 01/31/2025 11:14 PM [facility] POTASSIUM S/P/B 3.7 3.5 - 5.1 MMOL/L 01/31/2025 11:14 PM [facility] CHLORIDE S/P/B 102 100 - 108 MMOL/L 01/31/2025 11:14 PM [facility] CO2 28.1 21 - 32 MMOL/L 01/31/2025 11:14 PM [facility] CALCIUM S/P/B 9.6 8.5 - 10.1 MG/DL 01/31/2025 11:14 PM [facility] BILIRUBIN TOTAL S/P/B 0.7 0.2 - 1.2 MG/DL 01/31/2025 11:14 PM [facility] TOTAL PROTEIN S/P/B 7.7 6.4 - 8.2 G/DL 01/31/2025 11:14 PM [facility] ALBUMIN S/P/B 4.4 3.4 - 5.0 G/DL 01/31/2025 11:14 PM [facility] AST 15 15 - 37 U/L 01/31/2025 11:14 PM [facility] ALT 19 16 - 60 U/L 01/31/2025 11:14 PM CDT [facility] ALKALINE PHOSPHATASE S/P/B 85 50 - 136 U/L 01/31/2025 11:14 PM CDT [facility] ANION GAP 10.9 5 - 15 MMOL/L 01/31/2025 11:14 PM CDT [facility] BUN CREATININE RATIO 5.5(L) 6 - 26 01/31/2025 11:14 PM CDT [facility] A/G RATIO 1.3 1.0 - 2.0 RATIO 01/31/2025 11:14 PM CDT [facility] GFR ESTIMATE 85(L) >90 ML/MIN/1.7 3 M2 01/31/2025 11:14 PM CDT [facility] Comment: NOTE: eGFR is not calculated for patients <18 years of age. This is an estimated GFR calculation using the new CKD EPI creatinine equation without race and so does not require a correction factor for race. This estimated GFR should not be used for calculating drug doses. 01/31/2025 10:4 9 PM CDT Temo Soriano MD LABORATORY Final Resu lt [facility] [address] [place] [address], * (ABNORMAL) CBC W/DIFF AUTOMATED (01/31/2025 10:49 PM CDT) WBC 19.87(H) 4.4 - 11.0 x10'3/uL 01/31/2025 10:59 PM CDT [facility] RBC 5.09 4.50 - 5.90 x10'6/uL 01/31/2025 10:59 PM CDT [facility] HGB 15.4 14.0 - 17.5 G/DL 01/31/2025 10:59 PM CDT [facility] HCT 44.3 41.5 - 50.4 % 01/31/2025 10:59 PM CDT [facility] MCV 87.0 80.0 - 96.0 FL 01/31/2025 10:59 PM CDT [facility] MCH 30.3 26.5 - 31.4 PG 01/31/2025 10:59 PM CDT [facility] MCHC 34.8 31.9 - 34.8 G/DL 01/31/2025 10:59 PM CDT [facility] RDW 15.0(H) 12.3 - 14.3 % 01/31/2025 10:59 PM CDT [facility] PLT 296 151 - 353 x10'3/uL 01/31/2025 10:59 PM CDT [facility] MPV 10.0 9.7 - 11.9 FL 01/31/2025 10:59 PM CDT [facility] RBC MORPHOLOGY NORMAL 01/31/2025 10:59 PM CDT [facility] PLT MORPH. NORMAL 01/31/2025 10:59 PM T [facility] WBC MORPHOLOGY NORMAL 01/31/2025 10:59 PM CDT [facility] LYMPHOCYTES % 8.9(L) 15.8 - 45.0 % 01/31/2025 10:59 PM CDT [facility] NEUTROPHILS % 82.5(H) 42.1 - 71.9 % 01/31/2025 10:59 PM CDT [facility] MONOCYTES % 7.4 5.7 - 12.5 % 01/31/2025 10:59 PM CDT [facility] EOSINOPHILS 0.4 0.0 - 5.6 % 01/31/2025 10:59 PM CDT [facility] BASOPHILS 0.4 0.0 - 1.3 % 01/31/2025 10:59 PM CDT [facility] ABS. NEUTROPHILS 16.39(H) 1.40 - 6.00 x10'3/uL 01/31/2025 10:59 PM CDT [facility] IMMATURE GRANS % 0.4 0.0 - 0.5 % 01/31/2025 10:59 PM CDT [facility] ABS. LYMPHOCYTES 1.77 0.80 - 4.70 x10'3/uL 01/31/2025 10:59 PM CDT [facility] 01/31/2025 10:4 9 PM CDT us Temo Soriano MD LABORATORY Final Resu lt Performing Organization Address City/[facility]/ZIP Co de Phone Number [facility] [address] [place] [address], [place] [phone] * LIPASE (01/31/2025 10:49 PM CDT) LIPASE 30 16 - 77 UNITS/L 01/31/2025 11:14 PM CDT [facility] 01/31/2025 10:4 9 PM CDT us Temo Soriano MD LABORATORY Final Resu lt Performing Organization Address [facility]/ZIP Co de Phone Number [facility] [address] [place] [address], [place] [phone] from Last 3 Months Insurance MEDICAID Advance [...] 6:07 PM 10/19/2019 4:11 PM Care Teams Landscape Crew Leader Relationship Specialty Start Date End Date Td Lopez MD PCP - General FAMILY PRACTICE 08/18/19
--- OUTSIDE RECORDS SUMMARY | 2025-02-11 20:32 | XMS_ITS | Encounter Summary ---
Author Organization [facility] Healthcare Address [address] [place] [address] Care Team Providers Care Instructor Wastewater Treatment Plant Name Role Phone Td Lopez MD Primary Care Provider + Angie Woodard MD Unavailable [phone] Vimal Woodruff MD Unavailable [phone] PastorAlannah MA Unavailable [phone] PastorAlannah fair MA Unavailable [phone] PastorAlannah fair MA Unavailable [phone] Eun Arana RN Unavailable [phone] Lakshmi Garcia LPN Unavailable [phone] Niki Burns MA Unavailable Encounter Details Date Type Department Care Team (Late st Contact Info) Description 12/21/2017 Documentation [id number] [place] [id number] Shannan Farfan, JOHN Social History Tobacco Use Types Packs/Day Years Used Date Smoking Tobacco: Every Day Sex and Gender Information Value Date Recorded Sex Assigned at Not on file Legal Sex Male 3:38 AM CITY DISTRIBUTION CLERK Gender Identity Not on file Sexual [...] COVID: Suspected 06/27/2021 06/27/2021 06/27/2021 12:53 PM CITY DISTRIBUTION CLERK COVID19 06/27/2021 06/27/2021 07/08/2021 3:05 AM CITY DISTRIBUTION CLERK COVID: Recovered Comment:Added based on recent COVID infection. 07/08/2021 07/14/2021 11/05/2021 3:05 AM C DT COVID: Suspected 05/20/2022 05/20/2022 05/20/2022 2:32 AM CITY DISTRIBUTION CLERK COVID: Suspected 09/20/2023 09/20/2023 09/20/2023 9:26 PM CDT COVID: Suspected 10/04/2023 10/04/2023 10/04/2023 3:55 PM CDT documented as of this encounter Care Teams Instructor [employer]water Treatment [employer] Relationship Specialty Start Date End Date Td Lopez MD [facility] [address] [address] PCP - General Family Medicine 11/09/20 Angie Woodard MD [address] [facility] [address] [place] [address] Consulting Physician Gastroenterology 07/17/21 Vimal Woodruff MD [address] [facility] [address] [place] [address] Consulting Physician Gastroenterology 02/10/22 Alannah Baumann MA [address] [place] [address] [facility] [employer] 12/31/23 01/05/24 Alannah Baumann MA [address] [place] [address] [facility] [employer] 06/29/24 06/30/24 Alannah Baumann MA [address] [place] [address] [address] [place] [address] [facility] [employer] 08/03/24 08/03/24 Eun Arana RN [address] [place] [address] [address] [place] [address] Control Systems Specialist 08/17/24 08/25/24 Lakshmi Garcia LPN [address] [place] [address] [address] [place] [address] Control Systems Specialist 10/05/24 10/05/24 Niki Burns MA [address] [place] [address] [address] [place] [address] [facility] [employer] 10/18/24 10/19/24 documented as of this encounter
--- OUTSIDE RECORDS SUMMARY | 2025-02-11 20:32 | XMS_ITS | Clinical Summary ---
Author Organization [facility] Address [address] [place] [address] Care Team Providers Care Patient Representative Name Role Phone Alee Zhao MD Primary Care Provider [phone] Source Comments [facility],non-owned Affiliates and Associated Physician Practices is amultiple site organization consisting of ambulatory clinics and hospital sitesin [place], [place], [place] and [place]. This disclosure is being madepursuant to the Care Everywhere program and may not contain all information available regarding this patient. Last updated 18.[facility] Allergies Active Allergy Reactions Criticality Noted Date [...] on file Legal Sex Male 7:46 PM PORTUGUESE TUTOR Gender Identity Not on file Sexual Orientation Not on file Last Filed Vital Signs Vital Sign Reading Time Taken Comments Blood Pressure 120/71 03/17/2019 5:03 PM PORTUGUESE TUTOR Pulse 75 03/17/2019 5:03 PM PORTUGUESE TUTOR Temperature 36.9 C (98.4 F) 03/17/2019 2:00 PM PORTUGUESE TUTOR Respiratory Rate 17 03/17/2019 5:03 PM PORTUGUESE TUTOR Oxygen Saturation 99% 03/17/2019 5:03 PM PORTUGUESE TUTOR Inhaled Oxygen Concentration - - Weight 77.1 kg (170 lb) 03/17/2019 2:00 PM PORTUGUESE TUTOR Height 177.8 cm (5' 10) 03/17/2019 2:00 PM PORTUGUESE TUTOR Body Mass Index 24.39 03/17/2019 2:00 PM PORTUGUESE TUTOR Plan of Treatment Health Maintenance Due Date [...] RFLX NAAT QUANT STAT 03/27/2018 9:12 PM PORTUGUESE TUTOR HIV-1 HIV-2 ANTIGEN/ANTIBODY STAT 03/27/2018 9:12 PM PORTUGUESE TUTOR from Last 3 Months or Most Recently Relevant to Health Maintenance Results * HIV-1 HIV-2 ANTIGEN/ANTIBODY (03/27/2018 9:12 PM PORTUGUESE TUTOR) HIV Antigen/Antibod y 1 & 2 Non-reacti ve Non-react nemesio 03/27/2018 10:17 PM PORTUGUESE TUTOR [facility] Comment: Neither HIV-1 p24 Antigen nor HIV-1/HIV-2 Antibodies are detected. Blood BLOOD SPECIMEN / Unknown Venipuncture / Unknown 03/27/2018 9:12 PM PORTUGUESE TUTOR 03/27/2018 9:21 PM PORTUGUESE TUTOR us Davi Patrick MD LAB - HEMATOLOGY ORDERABLES Fi nal Result Performing Organization Address [facility] Co de Phone Number [address] [phone] * HEPATITIS C AB SCREEN RFLX NAAT QUANT (03/27/2018 9:12 PM PORTUGUESE TUTOR) Hepatitis C Antibody Non-react nemesio Non-reac tive 03/27/2018 10:20 PM PORTUGUESE TUTOR [facility] Comment: Hepatitis C Antibody screen indicates no serologic evidence of past or current infection with Hepatitis C Virus. Patients with unexplained liver disease who are immunocompromised or suspected of having acute Hepatitis C infection may benefit from Nucleic Acid Test (RINKU) for Hepatitis C Viral RNA to confirm Hepatitis C status. Blood BLOOD SPECIMEN / Unknown Venipuncture / Unknown 03/27/2018 9:12 PM PORTUGUESE TUTOR 03/27/2018 9:21 PM PORTUGUESE TUTOR us Davi Patrick MD LAB - CHEMISTRY ORDERABLES Fin al Result Performing Organization Address [facility] Co de Phone Number [address] [phone] from Last 3 Months or Most Recently Relevant to Health Maintenance Insurance [facility] Care Teams Patient Representative Relationship Specialty Start Date End Date Alee Zhao MD [address] [place] [phone] PCP - General Family Medicine 03/25/18
[2025-02-12 01:01] VITALS: BP 126/88; PULSE 73; RESP 18; O2SAT 99
--- NOTE | 2025-02-12 01:33 | PC.NURSE ---
Rn attempted to get urine from pt at this time. Pt states he is unable to go at this time. Urinal at bedside.
--- NOTE | 2025-02-12 02:07 | ED.ABDPAIN ---
HPI - Abdominal Pain General Chief Complaint: Abdominal Pain Stated Complaint: abdominal pain, n/v x 1 day Time Seen by Provider: 02/12/25 01:41 Source: patient Mode of arrival: ambulatory Limitations: no limitations History of Present Illness HPI narrative: Patient presents with abdominal pain. He reports 2 particular areas of pain, a squeezing in his LUQ and additional pain at RUQ. Reports chronic GI issues but no current GI doctor. His PCP is Dr Woodard in [place]. HIstory of pancreatitis. Here recently for similar. This episode has been present for 1 day and is associated with nausea and vomiting, yellow but no hematemesis. Pain radiates to back, 10/10 in severity and occuring intermittently. LBM was this morning, no diarrhea, constipation, blood. Status post cholecystectomy. States this pain has happened before, kind of but different. Previously underwent EGD and ERCP as well as biliary stent though since removed. No anticoagulation. Last oral intake applesauce but couldn't finish it. Appetite ok. No dysuria or hematuria. No cough. Denies marijuana use currently. Related Data Home Medications ?Medication ?Instructions ?Recorded ?Confirmed ?Last Taken ?Type apixaban 5 mg tablet (Eliquis) 5 mg PO BID 04/05/23 04/05/23 Unknown History dicyclomine 20 mg tablet 20 mg PO BID 04/05/23 04/05/23 Unknown History Allergies Allergy/AdvReac Type Severity Reaction Status Date / Time metoclopramide Allergy Unknown Muscle Verified 02/06/25 02:26 Spasms haloperidol (From Haldol) AdvReac Mild Muscle Verified 02/06/25 02:26 Spasms doxycycline AdvReac Unknown Gastrointestinal Verified 02/06/25 02:26 Upset sulfamethoxazole AdvReac Unknown Gastrointestinal Verified 02/06/25 02:26 Upset trimethoprim AdvReac Unknown Gastrointestinal Verified 02/06/25 02:26 Upset prochlorperazine (From AdvReac Muscle Verified 02/06/25 02:26 Compazine) Spasms Sulfa (Sulfonamide AdvReac Gastrointestinal Verified 02/06/25 02:26 Antibiotics) Upset PMFSH Past Medical History Medical History History of biliary stent insertion and s/p removal; multiple times since 2014 but none during 2024 Kidney infarction Chronic pancreatitis Cyclical vomiting Anxiety Depression Kidney stones Hypertension GERD (gastroesophageal reflux disease) Cyclic vomiting syndrome IBD (inflammatory bowel disease) Gastroenteritis Pancreatitis Colitis Surgical History Surgical History History of ERCP years ago [facility] History of esophagogastroduodenoscopy (EGD) years ago, Dr Henning Hx of cholecystectomy [facility] 2012 Family History Family History Grandparent Acute myocardial infarction Social History Social History (Updated 02/13/25 @ 19:35 by Twila Eddy MD) Smoking packs per day: 1 Smoking cigarettes per day: 20.0 Years smoked: 20 Smoking pack-years: 20.00 Smoking status: Current every day smoker Tobacco type: cigarettes Alcohol intake: current Drinks per week: 3 Substance use: current Substance use type: marijuana Lack of Transportation: No Lack of Food: Never True Current Housing: I Have Housing Concerned About Future Housing: No Difficulty Paying Gas/Electric Bills: No Difficulty Paying for Meds: No Currently Unemployed: No Education: High School Diploma/GED Difficulty w/ Childcare or Family Care: No Living arrangements: alone Gender identity (if verbalized by the patient): Male Sexual Orientation (if Verbalized by the Patient): Straight or Heterosexual Spiritual care concerns: No Exam Narrative: GENERAL: well-nourished, in moderate acute distress. HEAD: Normocephalic, atraumatic. EYES: Non injected, non icteric ENT: Nares clear, no rhinorrhea or epistaxis. Gross auditory acuity intact. NECK: Supple. No meningismus. CHEST: Speaking in full sentences. No respiratory distress. HEART: Regular rate and rhythm. . ABDOMEN: Soft, nondistended. TTP in upper abdomen, throughout epigastrium, RUQ, LUQ, not peritoneal EXTREMITIES: Normal range of motion. No lower extremity edema. SKIN: Warm, dry, no rash. NEURO: No focal deficits. Alert and oriented. Answering questions. Following commands. Normal speech without aphasia or dysarthria. PSYCH: Normal mood and affect. Course Vital Signs Vital signs: Vital Signs Temperature 97.8 F 02/11/25 20:30 Pulse Rate 95 02/11/25 20:30 Respiratory Rate 20 02/11/25 20:30 Blood Pressure 190/114 H 02/11/25 20:30 Pulse Oximetry 97 02/11/25 20:30 Oxygen Delivery Room Air 02/11/25 20:30 Temperature 97.8 F 02/11/25 20:30 Pulse Rate 65 02/12/25 04:30 Respiratory Rate 18 02/12/25 04:30 Blood Pressure 146/88 H 02/12/25 04:30 Pulse Oximetry 100 02/12/25 04:30 Oxygen Delivery Room Air 02/11/25 20:30 MDM - Abdominal Pain MDM Narrative Medical decision making narrative: Patient presents with upper abdominal pain. In the emergency department and he is afebrile with vital signs notable initially for hypertension although resolved on repeat. Patient does have tenderness throughout the abdomen on exam although not peritoneal. He had 2 CT abd/pelvis scans performed in January. Will try CTA as different imaging modality. Chemistry generally unremarkable. He has a normocytic anemia. No leukocytosis. Lipase is mildly elevated. It is not greater than 3 times the upper limit of normal although his pain is characteristic so will defer to CT imaging for further assessement. IV fluids have been ordered in the interim in addition to analgesics, ondansetron, and Pepcid. Ethanol level negative.Liver enzymes normal. CT as below. He has had biliary procedures previously though none recently. Other than pain being in the RUQ, no other features of cholangitis. Lactic acid normal. Discussed the CT results with secondary english teacher general surgeon Dr Méndez. He notes that due to the patient being status post cholecystectomy, no clear surgical cause of his symptoms. Notes that pneumobilia is a nonspecific finding. Nothing he would do from a surgical perspective. Recommends a GI cocktail. Patient reports feeling better and would like to be discharged. Discharged with referral contact information to a voip network technician. Differential Diagnosis Differential diagnosis: Likely abdominal pain, constipation, diverticulitis, pancreatitis, small bowel obstruction and other (gastritis, cyclic vomiting/ Cannabinoid hyperemesis, considered lobar pneumonia/pleural effusion) Lab Data Attestation: I reviewed the patient's lab results. Lab results narrative: Viral swab negative 02/12/25 02:32 02/12/25 02:32 Labs: Lab Results 02/12/25 02/12/25 Range/Units 02:32 04:25 WBC 9.6 (4.5-10.0) K/mm3 RBC 4.36 L (4.6-6.20) M/mm3 Hgb 12.9 L (14.0-18.0) g/dL Hct 38.9 L (42.0-52.0) % MCV 89.2 (80-100) fl MCH 29.6 (26-34) pg MCHC 33.2 (32-36) g/dl RDW 15.3 H (11.5-14.5) % Plt Count 259 (150-375) k/mm3 MPV 9.7 (7.4-10.4) fl Immature Gran % (Auto) 0.3 (0-0.5) % Neut % (Auto) 66.4 (45.5-73.1) % Lymph % (Auto) 21.4 (18.3-44.2) % [place] % (Auto) 10.9 H (2.6-8.5) % Eos % (Auto) 0.6 (0-4.4) % Baso % (Auto) 0.4 (0.2-1.2) % Lymph # (Auto) 2.04 (0.9-3.2) K/mm3 [place] # (Auto) 1.0 H (0.1-0.6) K/mm3 Eos # (Auto) 0.1 (0-0.3) K/mm3 Baso # (Auto) 0.0 (0.0-0.1) K/mm3 Abs Immat Gran (auto) 0.03 (0.00-0.031) K/mm3 Absolute Neuts (auto) 6.3 (1.3-6.7) K/mm3 Absolute Nucleated RBC 0.000 (0.0-0.012) K/mm3 Nucleated RBC % 0.0 (0.0-0.2) % Sodium 139 (137-145) mmol/L Potassium 4.1 (3.4-5.0) mmol/L Chloride 104 (98-107) mmol/L Carbon Dioxide 28 (22-30) mmol/L Anion Gap 7 (4-12) mmol/L BUN 6 L (9-20) mg/dL Creatinine 0.95 (0.7-1.3) mg/dL Estim Creat Clear Calc Not Reportable Estimated GFR > 60 (59 - ) Glucose 87 (65-110) mg/dL Lactic Acid 0.8 (0.7-2.0) mmol/L Calcium 9.3 (8.4-10.2) mg/dL Magnesium 2.0 (1.6-2.3) mg/dL Total Bilirubin 0.7 (0.2-1.3) mg/dL AST 23 (17-59) U/L ALT 21 (6-50) U/L Alkaline Phosphatase 67 (38-126) U/L Total Protein 6.6 (6.3-8.2) g/dL Albumin 4.1 (3.5-5.1) g/dL Lipase 546 H (23-300) U/L Urine Color Yellow (Yellow) Urine Appearance Clear (Clear) Urine pH 8.0 (5.0-9.0) Ur Specific [place] > 1.045 H (1.001-1.035) Urine Protein Trace (Negative) mg/dL Urine Glucose (UA) Negative (Negative) mg/dL Urine Ketones Trace H (Negative) mg/dL Ur Blood (Man) Negative (Negative) Urine Nitrate Negative (Negative) Urine Bilirubin Negative (Negative) Urine Urobilinogen 1.0 (<2.0) mg/dL Leukocyte Esterase Rfl Negative (Negative) CHRIS/UL Urine RBC 0-2 (0-2) /hpf Urine WBC 0-5 (0-3) /hpf Ur Squamous Epith Cells None seen (Few) /hpf Urine Bacteria None seen /hpf Urine Casts 0-2 Urine Opiates Screen Positive A (Negative) Urine Methadone Screen Negative (Negative) Ur Barbiturates Screen Negative (Negative) Ur Phencyclidine Scrn Negative (Negative) Ur Amphetamine Screen Negative (Negative) U Benzodiazepines Scrn Positive A (Negative) Urine Cocaine Screen Negative (Negative) U Cannabinoids Screen Positive A (Negative) Ethyl Alcohol < 10 (<10) mg/dL Influenza A (RT-PCR) Negative (Negative) Influenza B (RT-PCR) Negative (Negative) SARS-CoV-2 RNA (RT-PCR) Negative (Negative) Imaging Data Radiologist's impression: ITS Impressions Abdomen/Pelvis CTA 02/12/25 08:38 IMPRESSION: 1. No etiology for the patient's symptoms. CTA Abd & PElvis STat rad: Prior CT 02/03/2025. Pneumobilia. Correlate for cholangitis or operative biliary history. No acute finding. Discharge Plan Discharge Clinical Impression: Chronic upper abdominal pain, Normocytic anemia Patient Disposition: Home Condition: Stable Instructions: Antibiotic Form, Abdominal Pain (ED), Anemia (ED) Additional Instructions: Because you do not have a voip network technician, the name of 1 is listed below. Call to make appointment given your longstanding history with GI issues/abdominal pain. Patient Language: Thai Prescriptions: New alum-mag hydroxide-simeth [Maalox Advanced] 200-200-20 mg/5 mL suspension 10 ml PO QID PRN (Reason: dyspepsia) Qty: 3000 0RF Rx Instructions: administer between meals and at bedtime No Action omeprazole 20 mg capsule,delayed release(DR/EC) 20 mg PO DAILY Qty: 14 0RF ondansetron 4 mg tablet,disintegrating 4 mg PO Q8H PRN (Reason: nausea and vomiting) Qty: 14 0RF dicyclomine 20 mg tablet 20 mg PO QID Qty: 20 0RF promethazine 25 mg tablet 25 mg PO Q6H PRN (Reason: nausea and vomiting) Qty: 20 0RF ondansetron 4 mg tablet,disintegrating 4 mg PO Q8H PRN (Reason: nausea and vomiting) Qty: 10 0RF hyoscyamine sulfate [Levsin] 0.125 mg tablet 0.125 mg PO QID Qty: 14 0RF ondansetron 4 mg tablet,disintegrating 4 mg PO Q6H PRN (Reason: nausea and vomiting) Qty: 10 0RF alum-mag hydroxide-simeth [Maalox Advanced] 200-200-20 mg/5 mL suspension 10 ml PO QID PRN (Reason: dyspepsia) Qty: 300 0RF Rx Instructions: administer between meals and at bedtime ondansetron 4 mg tablet,disintegrating 4 mg PO Q8H PRN (Reason: nausea and vomiting) Qty: 10 0RF dicyclomine 20 mg tablet 20 mg PO TID PRN (Reason: abdominal pain) Qty: 20 0RF ondansetron 4 mg tablet,disintegrating 4 mg PO Q8H PRN (Reason: nausea and vomiting) Qty: 10 0RF dicyclomine 20 mg Tablet 20 mg PO BID Patient Comments: HAVE NOT HAD A DOSE. UNABLE TO OBTAIN FROM HIS PHARMACY Eliquis 5 mg Tablet 5 mg PO BID dicyclomine 20 mg tablet 20 mg PO BID Qty: 30 0RF famotidine [Pepcid] 20 mg tablet 20 mg PO BID 42 Days Qty: 84 0RF ondansetron 4 mg tablet,disintegrating 4 mg PO Q8H PRN (Reason: nausea and vomiting) Qty: 10 0RF dicyclomine 20 mg tablet 20 mg PO TID PRN (Reason: abdominal pain) Qty: 20 0RF amoxicillin-pot clavulanate 875-125 mg tablet 1 tablet PO Q12H Qty: 14 0RF pantoprazole 40 mg tablet,delayed release (DR/EC) 40 mg PO HS Qty: 14 0RF famotidine [Pepcid] 20 mg tablet 20 mg PO DAILY Qty: 30 0RF ondansetron 4 mg tablet,disintegrating 4 mg PO Q6H PRN (Reason: nausea and vomiting) 3 Days Qty: 12 0RF Follow-up/Referrals: Yamilet,Angie Caldera MD [Non-Staff] Referral Note: patient's PCP John,Td Lewis MD [Primary Care Provider, Unknown] Anastacio Khalil MD [Physician, Gastroenterology] Referral Note: voip network technician Stand Alone Forms: Work/School Release IP Time of Disposition: 05:25
[2025-02-12] MEDS: SODIUM CHLORIDE 0.9% IV 1,000 ML 999 ML IV CONT (02:32)
[2025-02-12] MEDS: ONDANSETRON INJ 4 MG/2 ML VIAL IV PUSH (02:32)
[2025-02-12] MEDS: FAMOTIDINE 20 MG/2 ML VIAL IV PUSH (02:32)
[2025-02-12] MEDS: MORPHINE SULFATE (*CRX) 4 MG/ML INJ IV PUSH (02:32)
[2025-02-12 02:48] LABS: Hematocrit 38.9 % (42.0-52.0); Hemoglobin 12.9 g/dL (14.0-18.0); Immature Granulocyte Percent A 0.3 % (0-0.5); Lymphocytes Absolute Auto 2.04 K/mm3 (0.9-3.2); Mean Corpuscular HGB Conc 33.2 g/dl (32-36); Mean Corpuscular Hemoglobin 29.6 pg (26-34); Mean Corpuscular Volume 89.2 fl (80-100); Nucleated Red Blood Cells Absolute Auto 0.000 K/mm3 (0.0-0.012); Nucleated Red Blood Cells Perc 0.0 % (0.0-0.2); Platelet Count Result 259 k/mm3 (150-375); Red Blood Count 4.36 M/mm3 (4.6-6.20); White Blood Count 9.6 K/mm3 (4.5-10.0)
[2025-02-12 02:51] LABS: Alanine Aminotransferase 21 U/L (6-50); Albumin Level 4.1 g/dL (3.5-5.1); Alkaline Phosphatase 67 U/L (38-126); Anion Gap 7 mmol/L (4-12); Aspartate Amino Transferase 23 U/L (17-59); Bilirubin,Total 0.7 mg/dL (0.2-1.3); Blood Urea Nitrogen 6 mg/dL (9-20); Calcium 9.3 mg/dL (8.4-10.2); Carbon Dioxide 28 mmol/L (22-30); Chloride 104 mmol/L (98-107); Estimated Glomerular Filt Rate > 60; Glucose 87 mg/dL (65-110); Lipase 546 U/L (23-300); Potassium 4.1 mmol/L (3.4-5.0); Sodium 139 mmol/L (137-145); Total Protein 6.6 g/dL (6.3-8.2)
[2025-02-12 03:04] VITALS: BP 146/88; PULSE 60; RESP 18; O2SAT 99
--- NOTE | 2025-02-12 03:05 | PC.NURSE ---
pt still stating he does not have to urinate at this time.
[2025-02-12 03:31] LABS: Influenza A QL RT-PCR Negative (Negative); Influenza B QL RT-PCR Negative (Negative); SARS-CoV-2 RNA PCR Negative (Negative)
[2025-02-12] MEDS: HYDROmorphone HCL INJ (*CRX) 1 MG/ML SYR 0.5 MG IV PUSH (03:56)
[2025-02-12 04:30] VITALS: BP 146/88; PULSE 65; RESP 18; O2SAT 100
[2025-02-12 04:43] LABS: Add Urine Microscopic? YES; Appearance Urine Clear (Clear); Glucose Urine UA Negative (Negative); Leukocyte Esterase Ur Negative LEU/UL (Negative); Nitrate Urine Negative (Negative); Non Pathogenic Casts 0-2; Specific Grav Ur > 1.045 (1.001-1.035)
[2025-02-12 04:51] LABS: Magnesium 2.0 mg/dL (1.6-2.3)
[2025-02-12] MEDS: BELLADONNA ALK/PHENOB ELIX 10 ML, MAG HYDROX/ALUMINUM HYD/SIMETH 30 ML, LIDOCAINE 2% VI... PO (05:33)
[2025-02-12 07:08] LABS: Cannabinoid Screen Urine Positive (Negative)
== END 2025-02-12 05:35 | disposition home or self-care (01) ==
PROVIDERS: Emergency Provider Student in an Organized Health Care Education/Training Program; PCP Family Medicine
DX: R10.10 Upper abdominal pain, unspecified (principal); G89.29 Other chronic pain; D64.9 Anemia, unspecified; F17.210 Nicotine dependence, cigarettes, uncomplicated; F12.90 Cannabis use, unspecified, uncomplicated; Z20.822 Contact with and (suspected) exposure to COVID-19
CPT/HCPCS: 36415; 74174; 80053; 80307; 81001; 82077; 83605; 83690; 83735; 85025; 87636; 96361; 96374; 96375; 99284; A9270; J1171; J2270; J2405; J7030; Q9967

== ENCOUNTER 2025-03-11 20:41 | Emergency (ER) | payer OTHER, SELFPAY ==
--- OUTSIDE RECORDS SUMMARY | 2023-09-23 10:00 | XMS_ITS ---
Author Organization [facility] Address [address] [place] [address] Care Team Providers Care Type Proof Reproducer Name Role Phone John TUCKER, Td Primary Care Provider Unavaila jenny FIGUEROA AGGREGATE CONVEYOR OPERATOR, NATALIYA Unavailable IFRAH TUCKER, BRODERICK Unavailable [phone] REASON FOR VISIT ERCP stent pull INPT Encounters Encounter Location Date Provider Diagnosis [facility] - Op [address] Sched[address] [place], [place] [phone] 09/23/2023 BRODERICKNICKY RG Plan Of Treatment No Information Progress Notes * Donovan BROWN MDOB: 2 (44 yo M)Acc No.[id number]:09/23/2023 Patient: Donovan HASSAN Gaby Provider: William Rg MD, FASGE :1980 A ge:43 Y S ex:Male Date:09/23/2023 Address:[address] [id number] Pcp:Td Lopez MD * * Electronic signature of ROSETTE RG MD, MD on 03/11/2025 at 09:43 PM EDT Sign off status: Pending * Provider: William Rg MD, FASGE Date: 0 09/23/2023 Generated for Printi ng/Faxing/eTransmitting on: 1 05/11/2024 09:43 PM EDT
--- OUTSIDE RECORDS SUMMARY | 2024-02-29 04:00 | XMS_ITS ---
Author Organization [facility] Address [address] [place] [address] Care Team Providers Care Vacuum Pan Operator Name Role Phone John TUCKER, Td Primary Care Provider Tucker FIGUEROA NP, NATALIYA Porras REASON FOR VISIT FU ER Visit Encounters Encounter Location Date Provider Diagnosis [facility] [address] [place] [address] 02/29/2024 NATALIYA FIGUEROA Plan Of Treatment No Information Progress Notes * Donovan BROWN MDOB: 2 (44 yo M)Acc No.[id number]:02/29/2024 Progress Notes Patient: Donovan HASSAN Appointment Provider: Enrrique Figueroa CNP :1980 A ge:43 Y S ex:Male Date:02/29/2024 [facility] [facility] Pcp:Td Lopez MD Subjective: * Chief Complaints: * 1 . FU ER Visit. * Medical History: Objective: * Vitals: Assessment: Plan: * Treatment: * * Electronic signature of AMANDA FIGUEROA NP, MSN PANTRY GOODS MAKER-BC on 03/11/2025 at 09:44 PM EDT Sign off status: Pending * Appointment Provider: Enrrique Figueroa CNP Date: Generated for Printing/Faxing/eTransmitting on: 05/11/2024 09:44 PM EDT
--- OUTSIDE RECORDS SUMMARY | 2025-03-11 20:44 | XMS_ITS | Clinical Summary ---
Author Organization [facility] [employer] Address [address] [place] [address] Care Team Providers Care Boat Rental Clerk Name Role Phone Alee Zhao MD Primary Care Provider [phone] Source Comments [facility] [employer],non-owned Affiliates and Associated Physician Practices is amultiple site organization consisting of ambulatory clinics and hospital sitesin [place], [place], [place] and [place]. This disclosure is being madepursuant to the Care Everywhere program and may not contain all information available regarding this patient. Last updated 18.[facility] [employer] Allergies Active Allergy Reactions Criticality Noted Date [...] on file Legal Sex Male 7:46 PM RENTAL SALES REPRESENTATIVE Gender Identity Not on file Sexual Orientation Not on file Last Filed Vital Signs Vital Sign Reading Time Taken Comments Blood Pressure 120/71 03/17/2019 5:03 PM RENTAL SALES REPRESENTATIVE Pulse 75 03/17/2019 5:03 PM RENTAL SALES REPRESENTATIVE Temperature 36.9 C (98.4 F) 03/17/2019 2:00 PM RENTAL SALES REPRESENTATIVE Respiratory Rate 17 03/17/2019 5:03 PM RENTAL SALES REPRESENTATIVE Oxygen Saturation 99% 03/17/2019 5:03 PM RENTAL SALES REPRESENTATIVE Inhaled Oxygen Concentration - - Weight 77.1 kg (170 lb) 03/17/2019 2:00 PM RENTAL SALES REPRESENTATIVE Height 177.8 cm (5' 10) 03/17/2019 2:00 PM RENTAL SALES REPRESENTATIVE Body Mass Index 24.39 03/17/2019 2:00 PM RENTAL SALES REPRESENTATIVE Plan of Treatment Health Maintenance Due Date [...] RFLX NAAT QUANT STAT 03/27/2018 9:12 PM RENTAL SALES REPRESENTATIVE HIV-1 HIV-2 ANTIGEN/ANTIBODY STAT 03/27/2018 9:12 PM RENTAL SALES REPRESENTATIVE from Last 3 Months or Most Recently Relevant to Health Maintenance Results * HIV-1 HIV-2 ANTIGEN/ANTIBODY (03/27/2018 9:12 PM RENTAL SALES REPRESENTATIVE) HIV Antigen/Antibod y 1 & 2 Non-reacti ve Non-react nemesio 03/27/2018 10:17 PM RENTAL SALES REPRESENTATIVE [facility] Comment: Neither HIV-1 p24 Antigen nor HIV-1/HIV-2 Antibodies are detected. Blood BLOOD SPECIMEN / Unknown Venipuncture / Unknown 03/27/2018 9:12 PM RENTAL SALES REPRESENTATIVE 03/27/2018 9:21 PM RENTAL SALES REPRESENTATIVE us Davi Patrick MD LAB - HEMATOLOGY ORDERABLES Fi nal Result Performing Organization Address [facility] Co de Phone Number [address] [phone] * HEPATITIS C AB SCREEN RFLX NAAT QUANT (03/27/2018 9:12 PM RENTAL SALES REPRESENTATIVE) Hepatitis C Antibody Non-react nemesio Non-reac tive 03/27/2018 10:20 PM RENTAL SALES REPRESENTATIVE [facility] Comment: Hepatitis C Antibody screen [...] Unknown Venipuncture / Unknown 03/27/2018 9:12 PM RENTAL SALES REPRESENTATIVE 03/27/2018 9:21 PM RENTAL SALES REPRESENTATIVE us Davi Patrick MD LAB - CHEMISTRY ORDERABLES Fin al Result Performing Organization Address [facility] Co de Phone Number [address] [phone] from Last 3 Months or Most Recently Relevant to Health Maintenance Insurance [facility] Care Teams Boat Rental Clerk Relationship Specialty Start Date End Date Alee Zhao MD [address] [place] [phone] PCP - General Family Medicine 03/25/18
--- OUTSIDE RECORDS SUMMARY | 2025-03-11 20:44 | XMS_ITS | Patient Health Record ---
Author Organization [facility] Address [address] [facility] [address] [place] [address] Care Team Providers Care Cosmetic Assembler Name Role Phone oJhn TUCKER, Td Primary Care Provider Tucker FIGUEROA INVESTIGATIONS CONSULTANT, NATALIYA Unavailable Allergies Allergen (clinical drug ingredient) [...] W/U Status Risk Notes Problem Chronic pancreatitis ([id number]) Other chronic pancreatitis (K86.1) Active confirmed Plan Of Treatment No Information Insurance Providers Payer Name Payer Address Payer Phone Subscriber Number Group Number Insured Name Patient Relationship to Insured Coverage Start Date Coverage End Date [address] [id number] Donovan Bailey Self - patient is the insured Medical (General) History Medical History History ICD Code chronic pancreatitis cyclic vomiting hyperemesis cannabis Surgical History Surgery Date(Month/Year) cholecystectomy ERCP
--- OUTSIDE RECORDS SUMMARY | 2025-03-11 20:44 | XMS_ITS | Clinical Summary ---
Author Organization [facility] Address [address] [place] [phone] Phone Care Team Providers Care Drafting Instructor Name Role Phone Unavailable Primary Care Provider [...] on file Legal Sex Male 7:38 PM TECHNICIAN Gender Identity Not on file Sexual Orientation Not on file Last Filed Vital Signs Vital Sign Reading Time Taken Comments Blood Pressure 119/84 07/11/2022 2:03 AM TECHNICIAN Pulse 80 07/11/2022 2:03 AM TECHNICIAN Temperature 36.3 C (97.4 F) 07/11/2022 2:03 AM TECHNICIAN Respiratory Rate 18 07/11/2022 2:03 AM TECHNICIAN Oxygen Saturation 97% 07/11/2022 2:03 AM TECHNICIAN Inhaled Oxygen Concentration - - Weight 79.4 kg (175 lb) 07/10/2022 8:06 PM TECHNICIAN Height 177.8 cm (5' 10) 07/10/2022 8:06 PM TECHNICIAN Body Mass Index 25.11 07/10/2022 8:06 PM TECHNICIAN Plan of Treatment Health Maintenance Due Date Last Done Comments HEPATITIS B VACCINES (1 of 3 - 19+ 3-dose series) 2000 HPV VACCINES (1 - 3-dose SCD M series) 2008 INFLUENZA VACCINE (#1) 2024 , 02/29/2020, 02/09/2018 COVID-19 Vaccine (4 - 2024-2 6 season) 2025 10/29/2021, 11/02/2020, 10/05/2020 DTAP/TDAP/TD VACCINES (2 - T d or Tdap) 10/30/2031 10/29/2021 Insurance [facility] MEDICAID [place]ICAID [place]
[2025-03-11 20:58] VITALS: BP 183/110; PULSE 80; RESP 18; TEMP 36.7; O2SAT 99
--- NOTE | 2025-03-11 21:45 | ED_ITS ---
HPI - Abdominal Pain General Chief Complaint: Abdominal Pain Stated Complaint: VOMITING/ABDOMEN PAIN Time Seen by Provider: 03/11/25 21:38 History of Present Illness HPI narrative: 44-year-old male with chronic abdominal pain well-known to this facility presenting with abdominal pain. Patient has had extensive workups in the past with multiple CT scans, CT angiographies and extensive ER visits with no solution or answers. He sees outpatient GI for this. Patient presents with recurrence of his abdominal pain nausea and vomiting. States he went to another ER 2 days ago and got droperidol and GI medications which helped promptly. Denies any traumatic injuries. States the symptoms feel the same as his normal pain. Concern for narcotic-seeking behavior raise on each ER visit on review of the EMR. Related Data Home Medications ?Medication ?Instructions ?Recorded ?Confirmed ?Last Taken ?Type apixaban 5 mg tablet (Eliquis) 5 mg PO BID 04/05/23 Unknown History dicyclomine 20 mg tablet 20 mg PO BID 04/05/23 Unknown History Allergies Allergy/AdvReac Type Severity Reaction Status Date / Time metoclopramide Allergy Unknown Muscle Verified 03/11/25 21:01 Spasms haloperidol (From Haldol) AdvReac Mild Muscle Verified 03/11/25 21:01 Spasms doxycycline AdvReac Unknown Gastrointestinal Verified 03/11/25 21:01 Upset sulfamethoxazole AdvReac Unknown Gastrointestinal Verified 03/11/25 21:01 Upset trimethoprim AdvReac Unknown Gastrointestinal Verified 03/11/25 21:01 Upset prochlorperazine (From AdvReac Muscle Verified 03/11/25 21:01 Compazine) Spasms Sulfa (Sulfonamide AdvReac Gastrointestinal Verified 03/11/25 21:01 Antibiotics) Upset Review of Systems 2 Review of Systems: As reviewed above in HPI [facility] Past Medical History Medical History History of biliary stent insertion and s/p removal; multiple times since 2014 but none during 2024 Kidney infarction Chronic pancreatitis Cyclical vomiting Anxiety Depression Kidney stones Hypertension GERD (gastroesophageal reflux disease) Cyclic vomiting syndrome IBD (inflammatory bowel disease) Gastroenteritis Pancreatitis Colitis Surgical History Surgical History History of ERCP years ago [facility] History of esophagogastroduodenoscopy (EGD) years ago, Dr Henning Hx of cholecystectomy [facility] 2013 Family History Family History Grandparent Acute myocardial infarction Social History Social History Smoking packs per day: 1 Smoking cigarettes per day: 20.0 Years smoked: 20 Smoking pack-years: 20.00 Smoking status: Current every day smoker Tobacco type: cigarettes Alcohol intake: current Drinks per week: 3 Substance use: current Substance use type: marijuana Lack of Transportation: No Lack of Food: Never True Current Housing: I Have Housing Concerned About Future Housing: No Difficulty Paying Gas/Electric Bills: No Difficulty Paying for Meds: No Currently Unemployed: No Education: High School Diploma/GED Difficulty w/ Childcare or Family Care: No Living arrangements: alone Gender identity (if verbalized by the patient): Male Sexual Orientation (if Verbalized by the Patient): Straight or Heterosexual Spiritual care concerns: No Exam 2 Narrative: GENERAL: Uncomfortable appearing. Awake and alert answering questions appropriately. HEAD: [Normocephalic, atraumatic.] EYES: [PERRLA and EOMI.] ENT: Nares clear, no rhinorrhea or epistaxis. Mucous membranes moist. NECK: Supple. CHEST: [Clear to auscultation. No respiratory distress.] HEART: [Regular rate and rhythm]. No murmur heard. [Normal peripheral pulses.] ABDOMEN: [Soft, nondistended], [nontender], [No rigidity or guarding] EXTREMITIES: Normal range of motion. [No edema.] SKIN: Sores over his neck and face, warm and dry extremities NEURO: [No focal deficits]. Alert and oriented [x3.] PSYCH: [Normal mood and affect.] Course Vital Signs Vital signs: Vital Signs Temperature 36.7 C 03/11/25 20:58 Pulse Rate 80 03/11/25 20:58 Respiratory Rate 18 03/11/25 20:58 Blood Pressure 183/110 H 03/11/25 20:58 Pulse Oximetry 99 11/01/25 20:58 Oxygen Delivery Room Air 03/11/25 20:58 Temperature 36.6 C 03/11/25 23:59 Pulse Rate 61 03/11/25 23:59 Respiratory Rate 18 03/11/25 23:59 Blood Pressure 102/70 03/11/25 23:59 Pulse Oximetry 100 03/11/25 23:59 Oxygen Delivery Room Air 03/11/25 20:58 MDM - Abdominal Pain MDM Narrative Medical decision making narrative: 44-year-old male with chronic abdominal pain well-known to this facility presenting with abdominal pain. Patient has had extensive workups in the past with multiple CT scans, CT angiographies and extensive ER visits with no solution or answers. He sees outpatient GI for this. Patient presents with recurrence of his abdominal pain nausea and vomiting. States he went to another ER 2 days ago and got droperidol and GI medications which helped promptly. Denies any traumatic injuries. States the symptoms feel the same as his normal pain. Concern for narcotic-seeking behavior raise on each ER visit on review of the EMR. Patient has a soft nondistended non peritoneal abdominal examination. Vital signs show no tachycardia, fever or hypoxemia. Chronically elevated blood pressure. Patient is well-known to this facility and has no change in his quality or symptoms of his chronic symptomatology of chronic abdominal pain and chronic nausea vomiting without explained etiology. No indications for advanced CT imaging at this time based on exam findings and normal vitals. Will treat him with droperidol GI cocktail Pepcid and fluids and laboratory studies obtained. Patient enquiring about narcotic pain control and given chronicity of patient's symptomatology without red flags on exam or history, do not feel comfortable administering any more narcotics at this time and he will have to follow up with his primary team and GI specialist for this. Laboratory studies show leukocytosis 16 but on review of the EMR patient chronically has elevated leukocytes on nearly every visit so nonspecific. Normal hemoglobin. Normal platelet count. Electrolytes are normal. Normal kidney function. Normal glucose. Normal LFTs. Negative lipase. Urine drug screen positive for cannabinoids which contributes to patient's symptomatology in likely exacerbation of cyclic vomiting and marijuana hyperemesis. Patient was given additional Toradol for analgesia with improvement. Safe for discharge with regular follow-up with his GI doctor. Given return precautions. Medical Records Attestation: I reviewed the patient's medical records. Lab Data Attestation: I reviewed the patient's lab results. 03/11/25 21:57 03/11/25 21:57 Labs: Lab Results 03/11/25 03/11/25 Range/Units 21:57 22:59 WBC 16.1 H (4.5-10.0) K/mm3 RBC 4.72 (4.6-6.20) M/mm3 Hgb 14.0 (14.0-18.0) g/dL Hct 41.7 L (42.0-52.0) % MCV 88.3 (80-100) fl MCH 29.7 (26-34) pg MCHC 33.6 (32-36) g/dl RDW 14.8 H (11.5-14.5) % Plt Count 280 (150-375) k/mm3 MPV 9.9 (7.4-10.4) fl Immature Gran % (Auto) 0.4 (0-0.5) % Neut % (Auto) 85.9 H (45.5-73.1) % Lymph % (Auto) 6.7 L (18.3-44.2) % [place] % (Auto) 6.6 (2.6-8.5) % Eos % (Auto) 0.2 (0-4.4) % Baso % (Auto) 0.2 (0.2-1.2) % Lymph # (Auto) 1.08 (0.9-3.2) K/mm3 [place] # (Auto) 1.1 H (0.1-0.6) K/mm3 Eos # (Auto) 0.0 (0-0.3) K/mm3 Baso # (Auto) 0.0 (0.0-0.1) K/mm3 Abs Immat Gran (auto) 0.07 H (0.00-0.031) K/mm3 Absolute Neuts (auto) 13.8 H (1.3-6.7) K/mm3 Absolute Nucleated RBC 0.000 (0.0-0.012) K/mm3 Nucleated RBC % 0.0 (0.0-0.2) % Sodium 140 (137-145) mmol/L Potassium 3.7 (3.4-5.0) mmol/L Chloride 108 H (98-107) mmol/L Carbon Dioxide 23 (22-30) mmol/L Anion Gap 9 (4-12) mmol/L BUN 8 L (9-20) mg/dL Creatinine 0.87 (0.7-1.3) mg/dL Estim Creat Clear Calc 99 ml/min Estimated GFR > 60 (59 - ) Glucose 116 H (65-110) mg/dL Calcium 9.1 (8.4-10.2) mg/dL Total Bilirubin 0.5 (0.2-1.3) mg/dL AST 30 (17-59) U/L ALT 20 (6-50) U/L Alkaline Phosphatase 87 (38-126) U/L Total Protein 7.3 (6.3-8.2) g/dL Albumin 4.6 (3.5-5.1) g/dL Lipase 110 (23-300) U/L Urine Opiates Screen Negative (Negative) Urine Methadone Screen Negative (Negative) Ur Barbiturates Screen Negative (Negative) Ur Phencyclidine Scrn Negative (Negative) Ur Amphetamine Screen Negative (Negative) U Benzodiazepines Scrn Negative (Negative) Urine Cocaine Screen Negative (Negative) U Cannabinoids Screen Positive A (Negative) Discharge Plan Discharge Clinical Impression: Abdominal pain, chronic, epigastric, Hyperemesis, Cyclical vomiting Patient Disposition: Home Condition: Stable Instructions: Antibiotic Form, Abdominal Pain (ED) Additional Instructions: No acute emergencies discovered today. Your chronic abdominal pain needs to be followed with your GI doctor and regular primary care team. Continue taking home medications and refrain from using marijuana that was still present on drug screen today as it is likely exacerbating your symptoms. Return with any emergencies. Patient Language: Welsh Prescriptions: New dicyclomine 20 mg tablet 20 mg PO TID PRN (Reason: abdominal pain) Qty: 20 0RF ondansetron 4 mg tablet,disintegrating 4 mg PO Q8H PRN (Reason: nausea and vomiting) Qty: 20 0RF No Action omeprazole 20 mg capsule,delayed release(DR/EC) 20 mg PO DAILY Qty: 14 0RF ondansetron 4 mg tablet,disintegrating 4 mg PO Q8H PRN (Reason: nausea and vomiting) Qty: 14 0RF dicyclomine 20 mg tablet 20 mg PO QID Qty: 20 0RF promethazine 25 mg tablet 25 mg PO Q6H PRN (Reason: nausea and vomiting) Qty: 20 0RF ondansetron 4 mg tablet,disintegrating 4 mg PO Q8H PRN (Reason: nausea and vomiting) Qty: 10 0RF hyoscyamine sulfate [Levsin] 0.125 mg tablet 0.125 mg PO QID Qty: 14 0RF ondansetron 4 mg tablet,disintegrating 4 mg PO Q6H PRN (Reason: nausea and vomiting) Qty: 10 0RF alum-mag hydroxide-simeth [Maalox Advanced] 200-200-20 mg/5 mL suspension 10 ml PO QID PRN (Reason: dyspepsia) Qty: 300 0RF Rx Instructions: administer between meals and at bedtime ondansetron 4 mg tablet,disintegrating 4 mg PO Q8H PRN (Reason: nausea and vomiting) Qty: 10 0RF dicyclomine 20 mg tablet 20 mg PO TID PRN (Reason: abdominal pain) Qty: 20 0RF ondansetron 4 mg tablet,disintegrating 4 mg PO Q8H PRN (Reason: nausea and vomiting) Qty: 10 0RF alum-mag hydroxide-simeth [Maalox Advanced] 200-200-20 mg/5 mL suspension 10 ml PO QID PRN (Reason: dyspepsia) Qty: 3000 0RF Rx Instructions: administer between meals and at bedtime dicyclomine 20 mg Tablet 20 mg PO BID Patient Comments: HAVE NOT HAD A DOSE. UNABLE TO OBTAIN FROM HIS PHARMACY Eliquis 5 mg Tablet 5 mg PO BID dicyclomine 20 mg tablet 20 mg PO BID Qty: 30 0RF famotidine [Pepcid] 20 mg tablet 20 mg PO BID 42 Days Qty: 84 0RF ondansetron 4 mg tablet,disintegrating 4 mg PO Q8H PRN (Reason: nausea and vomiting) Qty: 10 0RF dicyclomine 20 mg tablet 20 mg PO TID PRN (Reason: abdominal pain) Qty: 20 0RF amoxicillin-pot clavulanate 875-125 mg tablet 1 tablet PO Q12H Qty: 14 0RF pantoprazole 40 mg tablet,delayed release (DR/EC) 40 mg PO HS Qty: 14 0RF famotidine [Pepcid] 20 mg tablet 20 mg PO DAILY Qty: 30 0RF ondansetron 4 mg tablet,disintegrating 4 mg PO Q6H PRN (Reason: nausea and vomiting) 3 Days Qty: 12 0RF Follow-up/Referrals: John,Td Lewis MD [Primary Care Provider, Unknown] Time of Disposition: 23:44
[2025-03-11] MEDS: BELLADONNA ALK/PHENOB ELIX 10 ML, MAG HYDROX/ALUMINUM HYD/SIMETH 30 ML, LIDOCAINE 2% VI... PO (21:58)
[2025-03-11] MEDS: FAMOTIDINE 20 MG/2 ML VIAL IV PUSH (21:58)
[2025-03-11] MEDS: LACTATED RINGERS 1,000 ML 999 ML IV CONT (21:59)
[2025-03-11 22:05] LABS: Hematocrit 41.7 % (42.0-52.0); Hemoglobin 14.0 g/dL (14.0-18.0); Immature Granulocyte Percent A 0.4 % (0-0.5); Lymphocytes Absolute Auto 1.08 K/mm3 (0.9-3.2); Mean Corpuscular HGB Conc 33.6 g/dl (32-36); Mean Corpuscular Hemoglobin 29.7 pg (26-34); Mean Corpuscular Volume 88.3 fl (80-100); Nucleated Red Blood Cells Absolute Auto 0.000 K/mm3 (0.0-0.012); Nucleated Red Blood Cells Perc 0.0 % (0.0-0.2); Platelet Count Result 280 k/mm3 (150-375); Red Blood Count 4.72 M/mm3 (4.6-6.20); White Blood Count 16.1 K/mm3 (4.5-10.0)
[2025-03-11 22:15] LABS: Alanine Aminotransferase 20 U/L (6-50); Albumin Level 4.6 g/dL (3.5-5.1); Alkaline Phosphatase 87 U/L (38-126); Anion Gap 9 mmol/L (4-12); Aspartate Amino Transferase 30 U/L (17-59); Bilirubin,Total 0.5 mg/dL (0.2-1.3); Blood Urea Nitrogen 8 mg/dL (9-20); Calcium 9.1 mg/dL (8.4-10.2); Carbon Dioxide 23 mmol/L (22-30); Chloride 108 mmol/L (98-107); Estimated CRCL calculation 99 ml/min; Estimated Glomerular Filt Rate > 60; Glucose 116 mg/dL (65-110); Lipase 110 U/L (23-300); Potassium 3.7 mmol/L (3.4-5.0); Sodium 140 mmol/L (137-145); Total Protein 7.3 g/dL (6.3-8.2)
[2025-03-11 23:06] VITALS: PULSE 71; RESP 19; O2SAT 98
[2025-03-11 23:24] LABS: Cannabinoid Screen Urine Positive (Negative)
[2025-03-11] MEDS: KETOROLAC 30 MG/ML VIAL (*BKC) IV PUSH (23:54)
[2025-03-11 23:59] VITALS: BP 102/70; PULSE 61; RESP 18; TEMP 36.6; O2SAT 100
== END 2025-03-12 | disposition home or self-care (01) ==
PROVIDERS: Emergency Provider Student in an Organized Health Care Education/Training Program; PCP Family Medicine
DX: R10.13 Epigastric pain (principal); G89.29 Other chronic pain; R11.15 Cyclical vomiting syndrome unrelated to migraine; F17.210 Nicotine dependence, cigarettes, uncomplicated
CPT/HCPCS: 36415; 80053; 80307; 83690; 85025; 96361; 96374; 96375; 99284; A9270; J1790; J1885; J7120

== ENCOUNTER 2025-03-16 10:13 | Emergency (ER) | payer OTHER, SELFPAY ==
--- OUTSIDE RECORDS SUMMARY | 2023-09-21 08:30 | XMS_ITS ---
Author Organization [facility] Address [address] [place] [address] Care Team Providers Care Night Assistant Name Role Phone John TUCKER, Td Primary Care Provider Unavaila jenny FIGUEROA ENVIRONMENTAL SERVICES LEAD, NATALIYA Unavailable IFRAH TUCKER, BRODERICK Unavailable REASON FOR VISIT ERCP INPT Encounters Encounter Location Date Provider Diagnosis [facility] - Op [address] Scheduling [place], [place] [phone] 09/21/2023 BRODERICK RG Plan Of Treatment No Information Progress Notes * Donovan BROWN MDOB: 2 (44 yo M)Acc No.[id number]:09/21/2023 Patient: Donovan HASSAN Provider: William Rg MD, FASGE :1980 A ge:43 Y S ex:Male Date:09/21/2023 Address:[address] [id number] Pcp:Td Lopez MD * * Electronic signature of ROSETTE RG MD, MD on 03/16/2025 at 07:31 PM EST Sign off status: Pending * Provider: William Rg MD, FASGE Date: 0 09/21/2023 Generated for Printi ng/Faxing/eTransmitting on: 1 05/16/2024 07:31 PM EST
--- OUTSIDE RECORDS SUMMARY | 2023-09-23 09:00 | XMS_ITS ---
Author Organization [facility] Address [address] [place] [address] Care Team Providers Care Sole Polisher Name Role Phone John TUCKER, Td Primary Care Provider Unavaila jenny FIGUEROA EMPLOYEE COMMUNICATIONS SPECIALIST, NATALIYA Unavailable IFRAH TUCKER, BRODERICK Unavailable REASON FOR VISIT ERCP stent pull INPT Encounters Encounter Location Date Provider Diagnosis [facility] - Op [address] [place], [place] [id number] 09/23/2023 BRODERICKNICKY RG Plan Of Treatment No Information Progress Notes * Donovan BROWN MDOB: 2 (44 yo M)Acc No.[id number]:09/23/2023 Patient: Donovan HASSAN Gaby Provider: William Rg MD, FASGE :1980 A ge:43 Y S ex:Male Date:09/23/2023 Address:[address] [id number] Pcp:Td Lopez MD * * Electronic signature of ROSETTE RG MD, MD on 03/16/2025 at 07:31 PM EST Sign off status: Pending * Provider: William Rg MD, FASGE Date: 0 09/23/2023 Generated for Printi ng/Faxing/eTransmitting on: 1 05/16/2024 07:31 PM EST
--- OUTSIDE RECORDS SUMMARY | 2024-02-29 03:00 | XMS_ITS ---
Author Organization [facility] Address [address] [place] [address] Care Team Providers Care Heel Layer Name Role Phone John TUCKER, Td Primary Care Provider Tucker FIGUEROA NP, NATALIYA Porras [phone] REASON FOR VISIT FU ER Visit Encounters Encounter Location Date Provider Diagnosis [facility] [address] [place] [address] 02/29/2024 NATALIYA FIGUEROA Plan Of Treatment No Information Progress Notes * Donovan BROWN MDOB: 2 (44 yo M)Acc No.[id number]:02/29/2024 Progress Notes Patient: Donovan HASSAN Appointment Provider: Enrrique Figueroa CNP :1980 A ge:43 Y S ex:Male Date:02/29/2024 [facility] [facility] Pcp:Td Lopez MD Subjective: * Chief Complaints: * 1 . FU ER Visit. * Medical History: Objective: * Vitals: Assessment: Plan: * Treatment: * * Electronic signature of AMANDA FIGUEROA NP, MSN CONTROLS OPERATOR MOLDED GOODS-BC on 03/16/2025 at 07:31 PM EST Sign off status: Pending * Appointment Provider: Enrrique Figueroa CNP Date: Generated for Printing/Faxing/eTransmitting on: 05/16/2024 07:31 PM EST
[2025-03-16 10:31] VITALS: BP 165/108; PULSE 81; RESP 16; TEMP 36.3; O2SAT 99
[2025-03-16 12:05] LABS: Add Urine Microscopic? YES; Appearance Urine Turbid (Clear); Glucose Urine UA Negative (Negative); Leukocyte Esterase Ur Negative LEU/UL (Negative); Nitrate Urine Negative (Negative); Non Pathogenic Casts 0-2; Specific Grav Ur 1.014 (1.001-1.035)
[2025-03-16 12:17] LABS: Alanine Aminotransferase 17 U/L (6-50); Albumin Level 4.4 g/dL (3.5-5.1); Alkaline Phosphatase 76 U/L (38-126); Anion Gap 6 mmol/L (4-12); Aspartate Amino Transferase 28 U/L (17-59); Bilirubin,Total 0.6 mg/dL (0.2-1.3); Blood Urea Nitrogen 11 mg/dL (9-20); Calcium 9.3 mg/dL (8.4-10.2); Carbon Dioxide 26 mmol/L (22-30); Chloride 106 mmol/L (98-107); Estimated CRCL calculation 90 ml/min; Estimated Glomerular Filt Rate > 60; Glucose 118 mg/dL (65-110); Lipase 149 U/L (23-300); Potassium 4.1 mmol/L (3.4-5.0); Sodium 138 mmol/L (137-145); Total Protein 7.0 g/dL (6.3-8.2)
[2025-03-16 12:25] LABS: Hematocrit 43.7 % (42.0-52.0); Hemoglobin 14.7 g/dL (14.0-18.0); Immature Granulocyte Percent A 0.4 % (0-0.5); Lymphocytes Absolute Auto 1.09 K/mm3 (0.9-3.2); Mean Corpuscular HGB Conc 33.6 g/dl (32-36); Mean Corpuscular Hemoglobin 29.8 pg (26-34); Mean Corpuscular Volume 88.6 fl (80-100); Nucleated Red Blood Cells Absolute Auto 0.000 K/mm3 (0.0-0.012); Nucleated Red Blood Cells Perc 0.0 % (0.0-0.2); Platelet Count Result 267 k/mm3 (150-375); Red Blood Count 4.93 M/mm3 (4.6-6.20); White Blood Count 16.3 K/mm3 (4.5-10.0)
[2025-03-16 12:54] LABS: Cannabinoid Screen Urine Positive (Negative)
--- NOTE | 2025-03-16 13:07 | ED_ITS ---
HPI - Abdominal Pain General Chief Complaint: Abdominal Pain Stated Complaint: abd pain Time Seen by Provider: 03/16/25 12:01 Source: patient Mode of arrival: ambulatory Limitations: no limitations History of Present Illness HPI narrative: This is a 44-year-old male with extensive history of cyclic vomiting syndrome who presents the ED for nausea, vomiting, abdominal pain. Patient states that since this morning, he has been having significant pain to his periumbilical/epigastric region. He has vomited 5 times since showing up to the ED. he states that this feels similar to his prior episodes but slightly lower than normal. Denies fevers chills, chest pain, shortness of breath. He states that he last smoked marijuana a month ago. Last normal bowel movement was this morning. He recently saw his GI doctor who switched him from Pepcid to omeprazole. Related Data Home Medications ?Medication ?Instructions ?Recorded ?Confirmed ?Last Taken ?Type apixaban 5 mg tablet (Eliquis) 5 mg PO BID 04/05/23 Unknown History dicyclomine 20 mg tablet 20 mg PO BID 04/05/23 Unknown History Allergies Allergy/AdvReac Type Severity Reaction Status Date / Time metoclopramide Allergy Unknown Muscle Verified 03/11/25 21:01 Spasms haloperidol (From Haldol) AdvReac Mild Muscle Verified 03/11/25 21:01 Spasms doxycycline AdvReac Unknown Gastrointestinal Verified 03/11/25 21:01 Upset sulfamethoxazole AdvReac Unknown Gastrointestinal Verified 03/11/25 21:01 Upset trimethoprim AdvReac Unknown Gastrointestinal Verified 03/11/25 21:01 Upset prochlorperazine (From AdvReac Muscle Verified 03/11/25 21:01 Compazine) Spasms Sulfa (Sulfonamide AdvReac Gastrointestinal Verified 03/11/25 21:01 Antibiotics) Upset Review of Systems 2 Review of Systems: Gen.: Denies fevers or chills Eyes: Denies eye pain or visual change ENT: Denies congestion Respiratory: Denies shortness of breath or cough CV: Denies chest pain or palpitations GI: As per HPI denies burning, urgency, frequency or hematuria Musculoskeletal: Denies back pain or muscle pain Neuro: Denies numbness, tingling, weakness or focal weakness Skin: Denies rash Except as documented, all other systems reviewed and negative PMFSH Past Medical History Medical History History of biliary stent insertion and s/p removal; multiple times since 2014 but none during 2024 Kidney infarction Chronic pancreatitis Cyclical vomiting Anxiety Depression Kidney stones Hypertension GERD (gastroesophageal reflux disease) Cyclic vomiting syndrome IBD (inflammatory bowel disease) Gastroenteritis Pancreatitis Colitis Surgical History Surgical History History of ERCP years ago [facility] History of esophagogastroduodenoscopy (EGD) years ago, Dr Henning Hx of cholecystectomy [facility] 2012 Family History Family History Grandparent Acute myocardial infarction Social History Social History Smoking packs per day: 1 Smoking cigarettes per day: 20.0 Years smoked: 20 Smoking pack-years: 20.00 Tobacco type: cigarettes Alcohol intake: current Drinks per week: 3 Substance use: current Substance use type: marijuana Lack of Transportation: No Lack of Food: Never True Current Housing: I Have Housing Concerned About Future Housing: No Difficulty Paying Gas/Electric Bills: No Difficulty Paying for Meds: No Currently Unemployed: No Education: High School Diploma/GED Difficulty w/ Childcare or Family Care: No Living arrangements: alone Gender identity (if verbalized by the patient): Male Sexual Orientation (if Verbalized by the Patient): Straight or Heterosexual Spiritual care concerns: No Exam 2 Narrative: APPEARANCE: Mild distress, nontoxic, resting in bed EYES: EOMI HEENT: Normocephalic, atraumatic, OMM RESPIRATORY: No respiratory distress Clear to auscultation bilaterally with no rhonchi wheezing or rales. CARDIOVASCULAR: Regular rate and rhythm without murmurs rubs or gallops. ABDOMINAL: Soft, mild epigastric and periumbilical tenderness to palpation, nondistended, voluntary guarding MUSCULOSKELETAl: Moves all extremities. No clubbing, cyanosis or edema. NEURO: Awake and alert. Following commands, speech normal, no focal deficits SKIN:: Warm, dry. No rashes lesions or abrasions PSYCHIATRIC: Normal affect/mood, Course Vital Signs Vital signs: Vital Signs Temperature 97.4 F L 03/16/25 10:31 Pulse Rate 81 03/16/25 10:31 Respiratory Rate 16 03/16/25 10:31 Blood Pressure 165/108 H 03/16/25 10:31 Pulse Oximetry 99 03/16/25 10:31 Temperature 97.6 F 03/16/25 17:01 Pulse Rate 88 03/16/25 16:54 Respiratory Rate 16 03/16/25 16:54 Blood Pressure 127/88 03/16/25 16:54 Pulse Oximetry 100 03/16/25 16:54 MDM - Abdominal Pain MDM Narrative Medical decision making narrative: 44-year-old male Presenting for abdominal pain, nausea vomiting. On initial evaluation patient was in mild distress, afebrile, hemodynamic stable. Differentials include but are not limited to: ACS, Cholecystitis, choledocolithiasis, cyclic vomiting syndrome, cannabinoid hyperemesis, GERD, PUD, Pancreatitis, SBO, Cancer, AAA Notable exam findings: Mild distress, epigastric tenderness to palpation Notable lab findings: Leukocytosis at 16.3. CMP without significant abnormalities. UA clear. UDS positive for cannabinoids. Patient has already had 5 CT scans this year 3 of which were in the last month for the same symptoms so additional imaging is not indicated at this time and may be more detrimental the patient. He was given droperidol as this had worked previously but he did not have resolution of symptoms. He was subsequently given Phenergan, 1 L NS bolus, and Dilaudid. He did have significant improvement of his symptoms. Patient reported that he had smoked marijuana but this was a few weeks ago. He does follow with GI but has not seen them in a few weeks. I advised him to continue to seek follow-up with them as he may require endoscopy. Patient was agreeable to this plan. Given strict return precautions. Medical Records Attestation: I reviewed the patient's medical records. Lab Data Attestation: I reviewed the patient's lab results. 03/16/25 12:15 03/16/25 11:41 Labs: Lab Results 03/16/25 03/16/25 03/16/25 Range/Units 11:41 12:09 12:15 WBC 16.3 H (4.5-10.0) K/mm3 RBC 4.93 (4.6-6.20) M/mm3 Hgb 14.7 (14.0-18.0) g/dL Hct 43.7 (42.0-52.0) % MCV 88.6 (80-100) fl MCH 29.8 (26-34) pg MCHC 33.6 (32-36) g/dl RDW 15.0 H (11.5-14.5) % Plt Count 267 (150-375) k/mm3 MPV 9.7 (7.4-10.4) fl Immature Gran % (Auto) 0.4 (0-0.5) % Neut % (Auto) 85.8 H (45.5-73.1) % Lymph % (Auto) 6.7 L (18.3-44.2) % [place] % (Auto) 6.5 (2.6-8.5) % Eos % (Auto) 0.2 (0-4.4) % Baso % (Auto) 0.4 (0.2-1.2) % Lymph # (Auto) 1.09 (0.9-3.2) K/mm3 [place] # (Auto) 1.1 H (0.1-0.6) K/mm3 Eos # (Auto) 0.0 (0-0.3) K/mm3 Baso # (Auto) 0.1 (0.0-0.1) K/mm3 Abs Immat Gran (auto) 0.06 H (0.00-0.031) K/mm3 Absolute Neuts (auto) 14.0 H (1.3-6.7) K/mm3 Absolute Nucleated RBC 0.000 (0.0-0.012) K/mm3 Nucleated RBC % 0.0 (0.0-0.2) % Sodium 138 (137-145) mmol/L Potassium 4.1 (3.4-5.0) mmol/L Chloride 106 (98-107) mmol/L Carbon Dioxide 26 (22-30) mmol/L Anion Gap 6 (4-12) mmol/L BUN 11 (9-20) mg/dL Creatinine 0.91 (0.7-1.3) mg/dL Estim Creat Clear Calc 90 ml/min Estimated GFR > 60 (59 - ) Glucose 118 H (65-110) mg/dL Calcium 9.3 (8.4-10.2) mg/dL Total Bilirubin 0.6 (0.2-1.3) mg/dL AST 28 (17-59) U/L ALT 17 (6-50) U/L Alkaline Phosphatase 76 (38-126) U/L Total Protein 7.0 (6.3-8.2) g/dL Albumin 4.4 (3.5-5.1) g/dL Lipase 149 (23-300) U/L Urine Color Yellow (Yellow) Urine Appearance Turbid H (Clear) Urine pH 8.0 (5.0-9.0) Ur Specific [place] 1.014 (1.001-1.035) Urine Protein Negative (Negative) mg/dL Urine Glucose (UA) Negative (Negative) mg/dL Urine Ketones Negative (Negative) mg/dL Ur Blood (Man) Negative (Negative) Urine Nitrate Negative (Negative) Urine Bilirubin Negative (Negative) Urine Urobilinogen 0.2 (<2.0) mg/dL Leukocyte Esterase Rfl Negative (Negative) CHRIS/UL Urine RBC 0-2 (0-2) /hpf Urine WBC 0-5 (0-3) /hpf Ur Squamous Epith Cells None seen (Few) /hpf Urine Bacteria None seen /hpf Urine Casts 0-2 Urine Opiates Screen Negative (Negative) Urine Methadone Screen Negative (Negative) Ur Barbiturates Screen Negative (Negative) Ur Phencyclidine Scrn Negative (Negative) Ur Amphetamine Screen Negative (Negative) U Benzodiazepines Scrn Negative (Negative) Urine Cocaine Screen Negative (Negative) U Cannabinoids Screen Positive A (Negative) Discharge Plan Discharge Clinical Impression: Cyclical vomiting Patient Disposition: Home Condition: Stable Instructions: Antibiotic Form, Abdominal Pain (ED) Additional Instructions: Continue to follow up with GI for possible endoscopy. Take tylenol and ibuprofen for pain. Continue to abstain from cannabinoid use. Return to the ED for new or worsening symptoms. Patient Language: Telugu Prescriptions: No Action omeprazole 20 mg capsule,delayed release(DR/EC) 20 mg PO DAILY Qty: 14 0RF ondansetron 4 mg tablet,disintegrating 4 mg PO Q8H PRN (Reason: nausea and vomiting) Qty: 14 0RF dicyclomine 20 mg tablet 20 mg PO QID Qty: 20 0RF promethazine 25 mg tablet 25 mg PO Q6H PRN (Reason: nausea and vomiting) Qty: 20 0RF ondansetron 4 mg tablet,disintegrating 4 mg PO Q8H PRN (Reason: nausea and vomiting) Qty: 10 0RF hyoscyamine sulfate [Levsin] 0.125 mg tablet 0.125 mg PO QID Qty: 14 0RF ondansetron 4 mg tablet,disintegrating 4 mg PO Q6H PRN (Reason: nausea and vomiting) Qty: 10 0RF alum-mag hydroxide-simeth [Maalox Advanced] 200-200-20 mg/5 mL suspension 10 ml PO QID PRN (Reason: dyspepsia) Qty: 300 0RF Rx Instructions: administer between meals and at bedtime ondansetron 4 mg tablet,disintegrating 4 mg PO Q8H PRN (Reason: nausea and vomiting) Qty: 10 0RF dicyclomine 20 mg tablet 20 mg PO TID PRN (Reason: abdominal pain) Qty: 20 0RF ondansetron 4 mg tablet,disintegrating 4 mg PO Q8H PRN (Reason: nausea and vomiting) Qty: 10 0RF alum-mag hydroxide-simeth [Maalox Advanced] 200-200-20 mg/5 mL suspension 10 ml PO QID PRN (Reason: dyspepsia) Qty: 3000 0RF Rx Instructions: administer between meals and at bedtime dicyclomine 20 mg tablet 20 mg PO TID PRN (Reason: abdominal pain) Qty: 20 0RF ondansetron 4 mg tablet,disintegrating 4 mg PO Q8H PRN (Reason: nausea and vomiting) Qty: 20 0RF dicyclomine 20 mg Tablet 20 mg PO BID Patient Comments: HAVE NOT HAD A DOSE. UNABLE TO OBTAIN FROM HIS PHARMACY Eliquis 5 mg Tablet 5 mg PO BID dicyclomine 20 mg tablet 20 mg PO BID Qty: 30 0RF famotidine [Pepcid] 20 mg tablet 20 mg PO BID 42 Days Qty: 84 0RF ondansetron 4 mg tablet,disintegrating 4 mg PO Q8H PRN (Reason: nausea and vomiting) Qty: 10 0RF dicyclomine 20 mg tablet 20 mg PO TID PRN (Reason: abdominal pain) Qty: 20 0RF amoxicillin-pot clavulanate 875-125 mg tablet 1 tablet PO Q12H Qty: 14 0RF pantoprazole 40 mg tablet,delayed release (DR/EC) 40 mg PO HS Qty: 14 0RF famotidine [Pepcid] 20 mg tablet 20 mg PO DAILY Qty: 30 0RF ondansetron 4 mg tablet,disintegrating 4 mg PO Q6H PRN (Reason: nausea and vomiting) 3 Days Qty: 12 0RF Follow-up/Referrals: John,Td Lewis MD [Primary Care Provider, Unknown] Anastacio Khalil MD [Physician, Gastroenterology]
[2025-03-16] MEDS: PROMETHAZINE HCL 25 MG TABLET PO (14:39)
[2025-03-16] MEDS: KETOROLAC 30 MG/ML VIAL (*BKC) IV PUSH (14:39)
[2025-03-16] MEDS: STAT BOLUS COMMUNICATION ORDER 2076 ML IV CONT (14:40)
[2025-03-16] MEDS: SODIUM CHLORIDE 0.9% IV 1,000 ML 2076 ML (14:44)
[2025-03-16] MEDS: SODIUM CHLORIDE 0.9% IV 250 ML 2076 ML (14:45)
[2025-03-16 14:48] VITALS: BP 164/107; PULSE 95; RESP 16; O2SAT 100
[2025-03-16] MEDS: HYDROmorphone HCL INJ (*CRX) 1 MG/ML SYR 0.5 MG IV PUSH (14:54)
[2025-03-16 16:54] VITALS: BP 127/88; PULSE 88; RESP 16; O2SAT 100
[2025-03-16 17:01] VITALS: TEMP 36.4
--- OUTSIDE RECORDS SUMMARY | 2025-03-16 18:31 | XMS_ITS | Clinical Summary ---
Author Organization [facility] Address [address] [place] [address] Care Team Providers Care Ice Maker Name Role Phone Td Lopez MD Primary Care Provider + Angie Woodard MD Unavailable [phone] Vimal Woodruff MD Unavailable [phone] Allergies Active Allergy Reactions Criticality Noted Date [...] Medium Reaction: neurological symptoms per patient Medications dicyclomine (BENTYL) 20 mg tabletIndications:E nterocolitis Take 1 tablet (20 mg total) by mouth 2 (two) times a day as needed (Abdominal cramping) 30 tablet 5 Active ondansetron ODT (ZOFRAN-ODT) 4 mg disintegrating tablet Take 1 tablet (4 mg total) by mouth every 6 (six) hours as needed for nausea or vomiting 20 tablet 5 Active ketorolac (TORADOL) 10 mg tablet Take 1 tablet (10 mg total) by mouth every 6 (six) hours as needed for pain 20 tablet 5 Active famotidine (PEPCID) 20 mg tablet Take 1 tablet (20 mg total) by mouth daily Active omeprazole (PriLOSEC) 20 mg capsule Take 1 capsule (20 mg total) by mouth daily 30 capsule 04/08/20 25 Active Active Problems Problem Noted Date Diagnosed Date Intractable nausea and vomiting 12/01/2024 Abdominal pain 10/03/2024 Acute pancreatitis, unspecif ied complication status, unspecified pancreatitis type 08/10/2024 Neck pain 03/25/2024 Assessment & Plan (03/25/2024 11:50 AM BACK UP MACHINE 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 Protein-calorie malnutrition, moderate Abdominal pain, generalized 09/19/2023 Assessment & Plan (09/25/2023 12:23 PM CDT): - improving - will give small amount of norco until pt heals from his procedure - f/u with GI Current use of correction anticoagulation 023 Assessment & Plan (09/25/2023 12:23 PM CDT): - stable - continue eliquis Assessment & Plan (03/20/2023 11:08 AM BACK UP MACHINE OPERATOR): - restart eliquis due to life long need for anticoagulation History of thrombosis 03/20/2023 Assessment & Plan (09/25/2023 12:22 PM CDT): - stable - continue eliquis Assessment & Plan (03/20/2023 11:08 AM BACK UP MACHINE OPERATOR): - restart eliquis due to life long need for anticoagulation SVETLANA (generalized anxiety disorder) 03/18/2023 Assessment & Plan (09/25/2023 12:26 PM CDT): - stable - continue ativan per GI for short period of time then will need to start SNRI if sx continue - f/u if sx return and will restart SNRI Tobacco dependence syndrome 02/03/2023 Exocrine pancreatic insufficiency 02/03/2023 Assessment & Plan (02/07/2025 1:59 PM CDT): Patient has chronic abdominal pain. He has multiple presentations to emergency department across the area. Multiple prior CT scans done at this and other institutions. I do not see any clear acute issues. His electrolytes and renal function are normal suggesting that he has adequate oral intake. He has an outpatient brake shoe rebuilder in [place]. I recommended he follow-up with him. I informed him that I would not be prescribing him any additional opioids if he were to be admitted to the hospital. I do not see a clear reason to admit him though. I recommended he return for evaluation if he is unable to tolerate any oral intake. As I have recommended on prior admissions, I recommend that we avoid giving him opioids in the emergency department. Amphetamine and psychostimulant dependence 01/10 Elevated lipase 01/10/2023 Assessment & Plan (02/07/2025 1:59 PM CDT): Patient has chronic abdominal pain. He has multiple presentations to emergency department across the area. Multiple prior CT scans done at this and other institutions. I do not see any clear acute issues. His electrolytes and renal function are normal suggesting that he has adequate oral intake. He has an outpatient brake shoe rebuilder in [place]. I recommended he follow-up with him. I informed him that I would not be prescribing him any additional opioids if he were to be admitted to the hospital. I do not see a clear reason to admit him though. I recommended he return for evaluation if he is unable to tolerate any oral intake. As I have recommended on prior admissions, I recommend that we avoid giving him opioids in the emergency department. Fatty (change of) liver, not elsewhere classifie d 01/10/2023 Hepatic steatosis 01/10/2023 GERD (gastroesophageal reflux disease) Assessment & Plan (02/07/2025 1:59 PM CDT): He can continue home Pepcid Assessment & Plan (09/25/2023 12:24 PM CDT): - stable - continue famotidine Assessment & Plan (03/20/2023 11:08 AM BACK UP MACHINE OPERATOR): - stable - continue current medication [...] eval. Assessment & Plan (03/25/2024 11:49 AM BACK UP MACHINE OPERATOR): - ref to derm for eval [...] he has abdominal pain Assessment & Plan (02/07/2025 1:59 PM CDT): Patient has chronic abdominal pain. He has multiple presentations to emergency department across the area. Multiple prior CT scans done at this and other institutions. I do not see any clear acute issues. His electrolytes and renal function are normal suggesting that he has adequate oral intake. He has an outpatient brake shoe rebuilder in [place]. I recommended he follow-up with him. I informed him that I would not be prescribing him any additional opioids if he were to be admitted to the hospital. I do not see a clear reason to admit him though. I recommended he return for evaluation if he is unable to tolerate any oral intake. As I have recommended on prior admissions, I recommend that we avoid giving him opioids in the emergency department. Assessment & Plan (03/25/2024 11:49 AM BACK UP MACHINE OPERATOR): - poor control - continue hyosciamine, famotidine, zofran - ref to GI for continued treatment Assessment & Plan (03/20/2023 11:07 AM BACK UP MACHINE OPERATOR): - stable - continue current medication Duodenal papillary stenosis 11/27/2020 Irritable bowel syndrome wit h both constipation and diarrhea 07/15/2019 Overview (07/15/2019): - pt with abdominal cramping/pain regularly, hx of several normal scopes, followed by Dr Yamilet Bills improved with bentyl and amitriptyline - pt [...] prn Assessment & Plan (07/15/2019 11:44 AM BACK UP MACHINE OPERATOR): - stable - continue bentyl and [...] medication Assessment & Plan (07/15/2019 11:44 AM BACK UP MACHINE OPERATOR): - stable - continue creon Annual [...] able Assessment & Plan (07/15/2019 11:46 AM BACK UP MACHINE OPERATOR): - encourage healthy diet, exercise - check labs - encouraged quitting smoking Enteritis 02/18/2019 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 Assessment & Plan (02/07/2025 1:59 PM CDT): Ongoing cessation counseling. He can try a nicotine patch outpatient. Assessment & Plan (07/15/2019 11:37 AM BACK UP MACHINE OPERATOR): - encouraged pt to quit smoking [...] advance diet as tolerated Assessment & Plan (02/07/2025 1:59 PM CDT): Patient has chronic abdominal pain. He has multiple presentations to emergency department across the area. Multiple prior CT scans done at this and other institutions. I do not see any clear acute issues. His electrolytes and renal function are normal suggesting that he has adequate oral intake. He has an outpatient brake shoe rebuilder in [place]. I recommended he follow-up with him. I informed him that I would not be prescribing him any additional opioids if he were to be admitted to the hospital. I do not see a clear reason to admit him though. I recommended he return for evaluation if he is unable to tolerate any oral intake. As I have recommended on prior admissions, I recommend that we avoid giving him opioids in the emergency department. Assessment & Plan (09/25/2023 12:25 PM CDT): - improving - f/u with GI Assessment & Plan (03/20/2023 11:07 AM BACK UP MACHINE OPERATOR): - stable - continue current medication [...] 09/17/202209/08 Assessment & Plan (03/20/2023 11:08 AM BACK UP MACHINE OPERATOR): - stable off meds - will [...] 09/25/2023 Assessment & Plan (03/26/2021 11:41 AM BACK UP MACHINE OPERATOR): - stable today - continue current [...] lexapro Assessment & Plan (07/15/2019 11:38 AM BACK UP MACHINE OPERATOR): - stable - continue current plan [...] medication Assessment & Plan (07/15/2019 11:38 AM BACK UP MACHINE OPERATOR): - stable - continue omeprazole and carafate Viral illness 07/08/2019 02/12/2021 Assessment & Plan (07/09/2019 9:12 AM BACK UP MACHINE OPERATOR): Medrol Dosepak as directed. Recommended Mucinex [...] (09/17/2018): Added automatically from request for surgery [id number] Assessment & Plan (02/12/2021 11:23 AM CDT): [...] medication Assessment & Plan (07/15/2019 11:36 AM BACK UP MACHINE OPERATOR): - controlled - continue current plan [...] Encounters Date Type Department Care Team Description 03/13/2025 10:28 AM BACK UP MACHINE OPERATOR - 03/13/2025 1:48 PM BACK UP MACHINE OPERATOR Emergency [facility] Emergency Department [address] [place] [address] Chronic abdominal pain (Primary Dx) Discharge Disposition: Discharge to home or self care 03/09/2025 3:00 PM CDT - 03/09/2025 7:08 PM CDT Emergency [facility] Emergency Department [address] [address] [address] Abdiel Valverde MD Duodenitis (Primary Dx) Discharge Disposition: Discharge to home or self care 02/13/2025 Telephone [facility] [address] [facility] [address] [place] [address] Td Lopez MD 02/10/2025 2:18 AM CDT - 02/10/2025 6:19 AM CDT Emergency [facility] Emergency Department [address] [place] [address] Kingsley Villanueva DO Chronic abdominal pain (Primary Dx) Discharge Disposition: Discharge to home or self care 02/07/2025 4:34 AM CDT - 02/07/2025 2:36 PM CDT Emergency [facility] Emergency Department [address] [place] [address] Yanira Strickland MD Dehaan, Jose Francisco Santos MD Abdominal pain (Primary Dx); Chronic abdominal pain [R10.9, G89.29] Discharge Disposition: Discharge to home or self care 02/06/2025 6:30 AM CDT - 02/06/2025 10:40 AM CDT [address] [address] Bernard Bruce MD Abdominal pain (Primary Dx) Discharge Disposition: Discharge to home or self care 01/28/2025 4:15 PM CDT - 01/28/2025 6:49 PM CDT Emergency [facility] Emergency Department [address] [place] [id number] Chronic abdominal pain (Primary Dx) Discharge Disposition: Discharge to home or self care 01/22/2025 7:28 AM CDT - 01/22/2025 11:05 AM T [address] [address] Freddy Yao DO Chronic abdominal pain (Primary [...] Recorded In the past 12 months has [employer], gas, oil, or water [employer] threatened to shut off services in your [...] attend chur ch or presybeterian services? Never 12/01/2024 Do you belong to any clubs o r organizations such as sikh groups, unions, fraternal or athletic groups, or [...] in a retirement (including now)? No 09/21/2023 PHQ-9 Answer Date [...] in the past 12 m [facility], were you homeless or living in a retirement (including now)? No 12/01/2024 Personal Safety Answer Date Recorded Have you ever been in or are you currently in a harmful physical or emotional relationship or is someone making you feel afraid or unsafe? Denies 03/13/2025 Sex and Gender Information Value Date Recorded Sex Assigned at Not on file Legal Sex Male 3:38 AM BACK UP MACHINE OPERATOR Gender Identity Not on file Sexual Orientation Not on file Last Filed Vital Signs Vital Sign Reading Time Taken Comments Blood Pressure 116/78 03/13/2025 12:00 PM BACK UP MACHINE OPERATOR Pulse 100 03/13/2025 12:00 PM BACK UP MACHINE OPERATOR Temperature 36.8 C (98.3 F) 03/13/2025 10:02 AM BACK UP MACHINE OPERATOR Respiratory Rate 20 03/13/2025 12:00 PM BACK UP MACHINE OPERATOR Oxygen Saturation 96% 03/13/2025 12:00 PM BACK UP MACHINE OPERATOR Inhaled Oxygen Concentration - - Weight 70 kg (154 lb 5.2 oz) 03/13/2025 10:02 AM BACK UP MACHINE OPERATOR Height 177.8 cm (5' 10) 03/13/2025 10:02 AM BACK UP MACHINE OPERATOR Body Mass Index 22.14 03/13/2025 10:02 AM BACK UP MACHINE OPERATOR Plan of Treatment Health Maintenance Due [...] Vaccines Discontinued Medical Devices Explanted Type Area Building Illuminating Engineer Device Identifier Shelf Expiration Date Model / Serial / Lot [employer] [id number] Connell Flexi-Stent 7fr 5cm Small Pigtail Flexible .035in Stent - [id number] Implanted:Qty: 1 on 09/18/2018 by Vimal Woodruff MD at [facility] Explanted:Qty: 1 on 09/20/2018 at [facility] Stent N/A: Pancreas [employer] 06/10/2023 [id number] / / [id number] Conmed Gina [id number] [place] Viabil 10mm 8.5fr 6cm 200cm Fully Covered Self Expand Pull - [id number] - [id number] Implanted:Qty: 1 on 09/18/2018 by Vimal Woodruff MD at [facility] Explanted:Qty: 1 on 09/20/2018 at [facility] Stent N/A: Bile Duct Conmed Gina 06/29/2021 [id number] / [id number] / [employer] Connell Flexi-Stent 7fr 9cm Small Pigtail Flexible .035in Stent 6575 - [id number] Implanted:Qty: 1 on 02/07/2022 by Vimal Woodruff MD at [facility] Explanted:Qty: 1 on 02/10/2022 by Vimal Woodruff MD at [facility] Stent N/A: Pancreas [employer] 09/07/2026 [id number] / / [id number] [employer] Gina Wallflex 10mm X 60mm Fully Covered Biliary [id number] - [id number] Implanted:Qty: 1 on 02/07/2022 by Vimal Woodruff MD at [facility] Explanted:Qty: 1 on 02/10/2022 by Vimal Woodruff MD at [facility] Stent N/A: Bile Duct [employer] Gina 11/04/2023 [id number] / / [id number] [employer] Connell Flexi-Stent 7fr 9cm Small Pigtail Flexible .035in Stent 6575 - [id number] Implanted:Qty: 1 on 09/21/2023 by Vimal Woodruff MD at [facility] Explanted:Qty: 1 on 09/23/2023 by Vimal Woodruff MD at [facility] Stent N/A: Pancreas [employer] 03/11/2028 [id number] / / [id number] Description:Not present at b eginning of case. Self migrated out [employer] Gina Wallflex 10mm X 60mm Fully Covered Biliary [id number] - [id number] Implanted:Qty: 1 on 09/21/2023 by Vimal Woodruff MD at [facility] Explanted:Qty: 1 on 09/23/2023 by Vimal Woodruff MD at [facility] Stent N/A: Bile Duct [employer] Gina 08/02/2025 [id number] / / [id number] Procedures Procedure Name Priority Date/Time Associated Diagnosis Comments EGFR STAT 03/13/2025 10:18 AM BACK UP MACHINE OPERATOR DIFFERENTIAL AUTO STAT 03/13/2025 10: 18 AM BACK UP MACHINE OPERATOR LIPASE STAT 03/13/2025 10:18 AM BACK UP MACHINE OPERATOR COMPREHENSIVE METABOLIC PANEL STAT 03/13/2025 10:18 AM BACK UP MACHINE OPERATOR CBC WITH AUTO DIFFERENTIAL STAT 03/13/2025 10:18 AM BACK UP MACHINE OPERATOR URINALYSIS AND REFLEX TO MICROSCOPIC AND CULTURE STAT 03/13/2025 10:18 AM BACK UP MACHINE OPERATOR URINALYSIS, MICROSCOPIC ONLY STAT 03/09/2025 4:44 PM CDT TROPONIN T HIGH-SENSITIVITY 2-HOUR Timed 03/09/2025 4:44 PM CDT URINALYSIS AND REFLEX TO MICROSCOPIC AND CULTURE STAT 03/09/2025 4:44 PM CDT XR CHEST PA LATERAL 2 VIEWS ED 03/09/2025 4:[address] ABDOMEN PELVIS W CONTRAST ED 03/09/2025 3:57 PM CDT ECG 12-LEAD STAT 03/09/2025 3:45 PM CDT POCT RAPID HIV ANTIBODY COMMUNITY SCREENING-KASSI ELIGIBLE Routine 03/09/2025 3:02 PM CDT TROPONIN T HIGH-SENSITIVITY SERIES (BASELINE, 2HR, 4HR, 6HR) STAT 03/09/2025 2:59 PM CDT EGFR STAT 03/09/2025 2:59 PM CDT DIFFERENTIAL AUTO STAT 03/09/2025 2:5 9 PM CDT LIPASE STAT 03/09/2025 2:59 PM CDT COMPREHENSIVE METABOLIC PANEL STAT 03/09/2025 2:59 PM CDT CBC WITH AUTO DIFFERENTIAL STAT 03/09/2025 2:59 PM CDT ETHANOL STAT 02/10/2025 2:35 AM CDT EGFR STAT 02/10/2025 2:35 AM CDT LIPASE STAT 02/10/2025 2:35 AM CDT COMPREHENSIVE METABOLIC PANEL STAT 02/10/2025 2:35 AM CDT DIFFERENTIAL AUTO STAT 02/10/2025 1:0 5 AM CDT CBC WITH AUTO DIFFERENTIAL STAT 02/10/2025 1:05 AM CDT EGFR STAT 02/07/2025 4:42 AM CDT DIFFERENTIAL AUTO STAT 02/07/2025 4:4 2 AM CDT LIPASE STAT 02/07/2025 4:42 AM CDT COMPREHENSIVE METABOLIC PANEL STAT 02/07/2025 4:42 AM CDT CBC WITH AUTO DIFFERENTIAL STAT 02/07/2025 4:42 AM CDT EGFR STAT 02/06/2025 4:23 AM CDT DIFFERENTIAL AUTO STAT 02/06/2025 4:2 3 AM CDT LIPASE STAT 02/06/2025 4:23 AM CDT ETHANOL STAT 02/06/2025 4:23 AM CDT COMPREHENSIVE METABOLIC PANEL STAT 02/06/2025 4:23 AM CDT CBC WITH AUTO DIFFERENTIAL STAT 02/06/2025 4:23 AM CDT TROPONIN T HIGH-SENSITIVITY 2-HOUR Timed 01/28/2025 4:34 [...] AND CULTURE STAT 01/22/2025 5:21 AM CDT from Last 3 Months Results * eGFR (03/13/2025 10:18 AM BACK UP MACHINE OPERATOR) eGFR >90 >=60 mL/min/1. 73 m2 Comment: [...] was last reviewed 2021. Testing performed by: [address] [address] Blood 03/13/2025 10:1 8 AM BACK UP MACHINE OPERATOR 03/13/2025 10:21 AM BACK UP MACHINE OPERATOR us Bernard Bruce MD LAB BLOOD ORDERABLES Final Resul t [place] [address] [facility] Department [place] [address] * (ABNORMAL) Differential, auto (03/13/2025 10:18 AM BACK UP MACHINE OPERATOR) Neutrophil abs 4.72 1.50 - 6.50 K/cumm Comment:Testing performed by : [address] [address] Imm gran abs 0.01 0.00 - 0.10 K/cumm NEEL Comment:Testing performed by : [address] [address] Lymphocyte abs 2.24 0.80 - 3.30 K/cumm NEEL Comment:Testing performed by : [address] [address] Monocyte abs 1.05(H) 0.20 - 0.80 K/cumm NEEL Comment:Testing performed by : [address] [address] Eosinophil abs 0.14 0.00 - 0.50 K/cumm NEEL Comment:Testing performed by : [address] [address] Basophil abs 0.04 0.00 - 0.10 K/cumm NEEL Comment:Testing performed by : [address] [address] Neutrophil pct 57.6 % [facility] Comment: Interpretive Data Percent cell count reference ranges are not reported, since discordance with absolute values may lead to misinterpretation of CBC data. Current Interpretive Data was last revised on 2017. Testing performed by: [address] [address] Imm gran pct 0.1 % [facility] Comment: Interpretive Data Percent cell count reference ranges are not reported, since discordance with absolute values may lead to misinterpretation of CBC data. Current Interpretive Data was last revised on 2017. Testing performed by: [address] [address] Lymphocyte pct 27.3 % [facility] Comment: Interpretive Data Percent cell count reference ranges are not reported, since discordance with absolute values may lead to misinterpretation of CBC data. Current Interpretive Data was last revised on 2017. Testing performed by: [address] [address] Monocyte pct 12.8 % [facility] Comment: Interpretive Data Percent cell count reference ranges are not reported, since discordance with absolute values may lead to misinterpretation of CBC data. Current Interpretive Data was last revised on 2017. Testing performed by: [address] [address] Eosinophil pct 1.7 % [facility] Comment: Interpretive Data Percent cell count reference ranges are not reported, since discordance with absolute values may lead to misinterpretation of CBC data. Current Interpretive Data was last revised on 2017. Testing performed by: [address] [address] Basophil pct 0.5 % [facility] Comment: Interpretive Data Percent cell count reference ranges are not reported, since discordance with absolute values may lead to misinterpretation of CBC data. Current Interpretive Data was last revised on 2017. Testing performed by: [address] [address] Blood 03/13/2025 10:1 8 AM BACK UP MACHINE OPERATOR 03/13/2025 10:21 AM BACK UP MACHINE OPERATOR us Bernard Bruce MD LAB BLOOD ORDERABLES Final Resul t [place] [address] [facility] Department [place] [address] * (ABNORMAL) Urinalysis reflex to microscopic and culture Urine (03/13/2025 10:18 AM BACK UP MACHINE OPERATOR) Color, ur Yellow Yellow Comment:Testing performed by : [address] [address] Clarity, ur Cloudy(A) Clear NEEL Comment:Testing performed by : [address] [address] Specific gravity, ur 1.015 1.003 - 1.030 NEEL Comment:Testing performed by : [address] [address] pH, urine 7.0 NEEL Comment: Interpretive Data U rine pH is affected by diet, medications, systemic acid-base disturbances, and renal tubular function. pH may affect urinary stone formation. For example, urine pH below 6.0 may help reduce the tendency for calcium phosphate stones and pH greater than 6.0 may reduce the tendency for uric acid stone formation. Source: [facility] [employer] Current Interpretive Data was last revised on 2017 Testing performed by: [address] [address] Protein, ur ql Negative Negative NEEL Comment:Testing performed by : [address] [address] Glucose, ur ql Negative Negative NEEL Comment:Testing performed by : [address] [address] Ketones, ur Negative Negative NEEL Comment:Testing performed by : [address] [address] Bilirubin, ur Negative Negative NEEL SMITH Comment:Testing performed by : [address] [address] Blood, ur Negative Negative NEEL SMITH Comment:Testing performed by : [address] [address] Urobilinogen, ur <2.0 <2.0 mg/dL NEEL SMITH Comment:Testing performed by : [address], [place]., [address] Nitrite, ur Negative Negative NEEL SMITH Comment:Testing performed by : [address], [place]., [address] Leukocyte esterase, ur Negative Negative NEEL Comment:Testing performed by : [address] [address] UA reflex comment Reflex conditions for microscopic UA and culture not met. NEEL SMITH Comment:Testing performed by : [address], [place]., [address] Urine 03/13/2025 10:1 8 AM BACK UP MACHINE OPERATOR 03/13/2025 10:21 AM BACK UP MACHINE OPERATOR us Bernard Bruce MD LAB MICROBIOLOGY - GENERAL ORDER CLAUDIO Final Result [place] [address] [facility] Department [place] [address] * CBC with auto differential (03/13/2025 10:18 AM BACK UP MACHINE OPERATOR) WBC 8.20 3.80 - 9.90 K/cumm Comment:Testing performed by : [address] [address] Hgb 14.2 13.0 - 17.5 g/dL NEEL SMITH Comment:Testing performed by : [address] [address] Hct 41.2 38.9 - 50.3 % NEEL SMITH Comment:Testing performed by : [address] [address] Plt 275 150 - 400 K/cumm NEEL SMITH Comment:Testing performed by : [address] [address] MPV 9.8 9.1 - 12.3 fL NEEL SMITH Comment:Testing performed by : [address] [address] RBC 4.74 4.30 - 5.80 M/cumm NEEL SMITH Comment:Testing performed by : [address] [address] MCV 86.9 81.3 - 96.4 fL NEEL Comment:Testing performed by : [address] [address] MCH 30.0 27.1 - 33.3 pg NEEL Comment:Testing performed by : [address] [address] MCHC 34.5 32.3 - 35.7 g/dL NEEL Comment:Testing performed by : [address] [address] RDW CV 14.9 11.1 - 14.9 % NEEL Comment:Testing performed by : [address], [address] RDW SD 47.5 35.7 - 48.1 fL NEEL Comment:Testing performed by : [address] [address] NRBC abs 0.00 0.00 - 0.01 K/cumm NEEL Comment:Testing performed by : [address] [address] Blood Venous blood specimen / Unknown 03/13/2025 10:18 AM BACK UP MACHINE OPERATOR 03/13/2025 10:21 AM BACK UP MACHINE OPERATOR us Bernard Bruce MD LAB BLOOD ORDERABLES [facility] [address] [facility] Department [place] [address] * Lipase (03/13/2025 10:18 AM BACK UP MACHINE OPERATOR) Lipase 39 10 - 99 Units/L Comment:Testing performed by : [address], [address] Blood Venous blood specimen / Unknown 03/13/2025 10:18 AM BACK UP MACHINE OPERATOR 03/13/2025 10:21 AM BACK UP MACHINE OPERATOR us Bernard Bruce MD LAB BLOOD ORDERABLES Final Resul t [facility] [address] [facility] Department [place] [address] * Comprehensive metabolic panel (03/13/2025 10:18 AM BACK UP MACHINE OPERATOR) Sodium 140 135 - 145 mmol/L Comment:Testing performed by : [address] [address] Potassium, pl 3.9 3.3 - 4.9 mmol/L NEEL Comment:Testing performed by : [address] [address] Chloride 107 97 - 110 mmol/L NEEL Comment:Testing performed by : [address] [address] CO2 22 22 - 32 mmol/L NEEL Comment:Testing performed by : [address] [address] Anion gap 11 2 - 15 mmol/L NEEL Comment:Testing performed by : [address] [address] BUN 7 6 - 25 mg/dL NEEL Comment:Testing performed by : [address] [address] Creatinine 1.00 0.80 - 1.30 mg/dL NEEL Comment:Testing performed by : [address] [address] Glucose 124 70 - 199 mg/dL NEEL Comment: Interpretive [...] was last revised 2022. Testing performed by: [address] [address] Calcium 9.2 8.5 - 10.3 mg/dL NEEL Comment:Testing performed by : [address] [address] Bilirubin, total 0.4 0.1 - 1.2 mg/dL NEEL Comment:Testing performed by : [address] [address] Protein, pl 6.8 6.5 - 8.5 g/dL NEEL Comment:Testing performed by : [address] [address] Albumin 4.5 3.5 - 5.0 g/dL NEEL Comment:Testing performed by : [address] [address] Alk phos 81 40 - 130 Units/L NEEL Comment:Testing performed by : [address] [address] ALT 13 7 - 55 Units/L NEEL Comment:Testing performed by : [address] [address] AST 16 10 - 50 Units/L NEEL Comment:Testing performed by : [address] [address] Blood 03/13/2025 10:1 8 AM BACK 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 Trop T hs delta 0 ng/L [facility] Trop T hs interp Insignificant [facility] Blood 03/09/2025 4:44 PM CDT 03/09/2025 4:47 PM CDT us Abdiel Valverde MD LAB BLOOD ORDERABLES Final Resul t NEEL GUZMÁN [address] [facility] Department of Laboratories [place], [place] [id number] * (ABNORMAL) Urinalysis reflex to microscopic and culture Urine (03/09/2025 4:44 PM CDT) Color, ur Yellow Clarity, ur Clear Clear [facility] Specific gravity, ur <1.005 1.003 - 1.030 [facility] pH, urine 8.0 [facility] Comment: Interpretive Data U rine pH is affected by diet, medications, systemic acid-base disturbances, and renal tubular function. pH may affect urinary stone formation. For example, urine pH below 6.0 may help reduce the tendency for calcium phosphate stones and pH greater than 6.0 may reduce the tendency for uric acid stone formation. Source: [facility] Current Interpretive Data was last revised on 2017 Protein, ur ql 1+(A) Negative [facility] Glucose, ur ql Negative Negative [facility] Ketones, ur 1+(A) Negative [facility] Bilirubin, ur Negative Negative [facility] Blood, ur Negative Negative [facility] Urobilinogen, ur <2.0 <2.0 [facility] Nitrite, ur Negative Negative [facility] Leukocyte esterase, ur Negative Negative [facility] UA reflex comment Reflex to microscopic UA will be performed. [facility] Urine 03/09/2025 4:44 PM CDT 03/09/2025 4:47 PM CDT us Abdiel Valverde MD LAB MICROBIOLOGY - GENERAL ORDER CLAUDIO Final Result Performing Organization Address [facility] Co de Phone Number NEEL TRACYWCH [address] [employer] [place] [address] * (ABNORMAL) Urinalysis, microscopic only (03/09/2025 4:44 PM CDT) WBC, ur 0-5 0 - 5 /HPF RBC, ur 3-5(A) 0 - 2 /HPF [facility] Mucous, ur Present(A) [facility] Culture Reflex Comment Reflex conditions for urine culture (WBC >10) not met. [facility] Urine 03/09/2025 4:44 PM CDT 03/09/2025 4:47 PM CDT us Abdiel Valverde MD LAB URINE ORDERABLES Final Resul t Performing Organization Address [facility] Phone Number NEEL TRACYWCH [address] [employer]. Department [place] [address] * XR Chest Pa Lateral 2 Vw (03/09/2025 4:13 PM CDT) Anatomical Region Laterality Modality Body, Chest N/A Computed Radiogr aphy 03/09/2025 4:26 PM CDT Impressions 03/09/2025 5:55 PM CDT Comparison was made to chest radiograph 10/07/2024. The lungs are clear without evidence of focal consolidation or mass. There are no pleural effusions or pneumothorax. Cardiomediastinal silhouette is normal in appearance. No acute osseous lesions. Electronically signed by: Henrietta Fernandes M.D. Narrative 03/09/2025 5:55 PM CDT EXAMINATION: 2 view chest radiograph Procedure Note Henrietta Fernandes MD - 03/09/2025 EXAMINATION: 2 view chest radiograph IMPRESSION: Comparison was made to chest radiograph 10/07/2024. The lungs are clear without evidence of focal consolidation or mass. There are no pleural effusions or pneumothorax. Cardiomediastinal silhouette is normal in appearance. No acute osseous lesions. Electronically signed by: Henrietta Fernandes M.D. Abdiel Valverde MD IMG XR PROCEDURES Final Result * CT Abdomen Pelvis W Contrast (03/09/2025 3:57 PM CDT) Anatomical Region Laterality Modality Body N/A Computed Tomogra phy 03/09/2025 4:24 PM CDT Impressions 03/09/2025 4:27 PM CDT Minimal thickening of the 2nd portion of the duodenum which may relate to mild duodenitis. Recommend correlation with clinical symptoms. Otherwise no acute findings within the abdomen or pelvis. Electronically signed by: Henrietta Fernandes M.D. Narrative 03/09/2025 4:27 PM CDT EXAMINATION: Computed tomography of the abdomen and pelvis with intravenous contrast HISTORY: Chronic abdominal pain that is different than normal; history of hemangioma; past medical history of cyclic vomiting, pancreatitis, sphincter of Oddi dysfunction; multiple episodes of nonbloody nonbilious vomiting TECHNIQUE: Transaxial computed tomographic images of the abdomen and pelvis were obtained with intravenous contrast according to the standard protocol after the uneventful administration of 100 mL Opti-Ray 350 intravenous contrast. COMPARISON: CT 01/28/2025 FINDINGS: Lung bases are clear. The heart is normal in size. No pericardial effusion. Small hiatal hernia. The stomach is normal in appearance. Normal appearance of the spleen and pancreas. Gallbladder is surgically removed. A small amount of pneumobilia is again demonstrated likely related to recent procedure. Mild hepatic steatosis. A 7 mm low-density lesion in hepatic segment 8 is unchanged, likely representing a cyst or hemangioma although too small to characterize on this study. Normal appearance of the bilateral adrenal glands. The bilateral kidneys are normal in appearance with unchanged scarring at the lower pole of the right kidney. No evidence of hydronephrosis. The bladder is normal in appearance without evidence of wall thickening. Normal appearance of the prostate. There is mild thickening of the 2nd portion of the duodenum. Otherwise the small and large bowel are normal in appearance. No evidence of obstruction. The appendix is normal in appearance. Normal appearance of vascular structures. No abdominopelvic lymphadenopathy. No suspicious osseous lesions. Procedure Note Henrietta Fernandes MD - 03/09/2025 EXAMINATION: Computed tomography of the abdomen and pelvis with intravenous contrast HISTORY: Chronic abdominal pain that is different than normal; history of hemangioma; past medical history of cyclic vomiting, pancreatitis, sphincter of Oddi dysfunction; multiple episodes of nonbloody nonbilious vomiting TECHNIQUE: Transaxial computed tomographic images of the abdomen and pelvis were obtained with intravenous contrast according to the standard protocol after the uneventful administration of 100 mL Opti-Ray 350 intravenous contrast. COMPARISON: CT 01/28/2025 FINDINGS: Lung bases are clear. The heart is normal in size. No pericardial effusion. Small hiatal hernia. The stomach is normal in appearance. Normal appearance of the spleen and pancreas. Gallbladder is surgically removed. A small amount of pneumobilia is again demonstrated likely related to recent procedure. Mild hepatic steatosis. A 7 mm low-density lesion in hepatic segment 8 is unchanged, likely representing a cyst or hemangioma although too small to characterize on this study. Normal appearance of the bilateral adrenal glands. The bilateral kidneys are normal in appearance with unchanged scarring at the lower pole of the right kidney. No evidence of hydronephrosis. The bladder is normal in appearance without evidence of wall thickening. Normal appearance of the prostate. There is mild thickening of the 2nd portion of the duodenum. Otherwise the small and large bowel are normal in appearance. No evidence of obstruction. The appendix is normal in appearance. Normal appearance of vascular structures. No abdominopelvic lymphadenopathy. No suspicious osseous lesions. IMPRESSION: Minimal thickening of the 2nd portion of the duodenum which may relate to mild duodenitis. Recommend correlation with clinical symptoms. Otherwise no acute findings within the abdomen or pelvis. Electronically signed by: Henrietta Fernandes M.D. Abdiel Valverde MD IMG CT PROCEDURES Final Result * (ABNORMAL) ECG 12-LEAD (03/09/2025 3:45 PM CDT) Narrative CONS SCIMAGE - 03/09/2025 3:45 PM CDT Abdiel Valverde MD 03/09/2025 3:46 PM ECG 12 lead Date/Time: 03/09/2025 3:45 PM Performed by: Abdiel Valverde MD Authorized by: Abdiel Valverde MD Rate: ECG rate: 83 ECG rate assessment: normal Rhythm: Rhythm: sinus arrhythmia Ectopy: Ectopy: none QRS: QRS axis: Normal QRS intervals: Normal Conduction: Conduction: normal ST segments: ST segments: Normal T waves: T waves: non-specific Q waves: Q waves: V4, V5 and V6 Previous ECG: Previous ECG: Compared to current Date of previous EC01/30/2025 Similarity: No change Interpretation: Interpretation: abnormal Recommended Follow-up: Recommended follow up: cardiac workup and further workup in the ED us Abdiel Valverde MD ECG ORDERABLES Final Result CONS SCIJASSGE * POCT Rapid HIV Antibody Community Screening-Kassi Eligible (03/09/2025 3:02 PM CDT) [facility] Rapid HIV, POC Negative Negative Lot Number [id number] QC Control Line Acceptable Blood 03/09/2025 3:02 PM CDT us Abdiel Valverde MD POINT OF CARE TEST ORDERABLES Fi nal Result * Troponin T high-sensitivity series (baseline, 2hr, 4hr, 6hr) (03/09/2025 2:59 PM CDT) Pathologist [facility] Trop T hs 6 <=22 ng/L Comment: Interpretive Data For further hscTnT resources including the diagnostic algorithm and an aid in interpretation, copy and paste this link: https://nrl.testcatalog.org/show/hsTrop Current Interpretive Data last revised 2020. Blood 03/09/2025 2:59 PM CDT 03/09/2025 3:02 PM CDT us Abdiel Valverde MD LAB BLOOD ORDERABLES Final Resul t Performing Organization Address City/[facility]/ZIP Co de Phone Number [facility] [address] [facility]. Department [place] [place] [address] * eGFR (03/09/2025 2:59 PM CDT) [facility] eGFR >90 >=60 mL/min/1. 73 m2 [...] interpretive data was last reviewed 2021. Blood 03/09/2025 2:59 PM CDT 03/09/2025 3:02 PM CDT us Temo Araujo MD LAB BLOOD ORDERABLES Fin al Result [facility] [address] [facility]. Department of Laboratories [place], [place] [id number] * (ABNORMAL) Differential, auto (03/09/2025 2:59 PM CDT) Pathologist [facility] Neutrophil abs 11.92(H) 1.50 - 6.50 K/cumm Imm gran abs 0.06 0.00 - 0.10 K/cumm [facility] Lymphocyte abs 1.73 0.80 - 3.30 K/cumm [facility] Monocyte abs 1.23(H) 0.20 - 0.80 K/cumm [facility] Eosinophil abs 0.06 0.00 - 0.50 K/cumm [facility] Basophil abs 0.05 0.00 - 0.10 K/cumm [facility] Neutrophil pct 79.2 % [facility] Comment: Interpretive Data Percent cell count reference ranges are not reported, since discordance with absolute values may lead to misinterpretation of CBC data. Current Interpretive Data was last revised on 2017. Imm gran pct 0.4 % CERIZZY GUZMÁN Comment: Interpretive Data Percent cell count reference ranges are not reported, since discordance with absolute values may lead to misinterpretation of CBC data. Current Interpretive Data was last revised on 2017. Lymphocyte pct 11.5 % NEEL GUZMÁN Comment: Interpretive Data Percent cell count reference ranges are not reported, since discordance with absolute values may lead to misinterpretation of CBC data. Current Interpretive Data was last revised on 2017. Monocyte pct 8.2 % NEEL GUZMÁN Comment: Interpretive Data Percent cell count reference ranges are not reported, since discordance with absolute values may lead to misinterpretation of CBC data. Current Interpretive Data was last revised on 2017. Eosinophil pct 0.4 % CERIZZY GUZMÁN Comment: Interpretive Data Percent cell count reference ranges are not reported, since discordance with absolute values may lead to misinterpretation of CBC data. Current Interpretive Data was last revised on 2017. Basophil pct 0.3 % NEEL GUZMÁN Comment: Interpretive Data Percent cell count reference ranges are not reported, since discordance with absolute values may lead to misinterpretation of CBC data. Current Interpretive Data was last revised on 2017. Blood 03/09/2025 2:59 PM CDT 03/09/2025 3:02 PM CDT us Abdiel Valverde MD LAB BLOOD ORDERABLES Final Resul t [facility] [address] [facility] Department [place] [address] * (ABNORMAL) CBC with auto differential (03/09/2025 2:59 PM CDT) WBC 15.05(H) 3.80 - 9.90 K/cumm Hgb 15.5 13.0 - 17.5 g/dL NEEL GUZMÁN Hct 45.2 38.9 - 50.3 % NEEL GUZMÁN Plt 299 150 - 400 K/cumm NEEL GUZMÁN MPV 10.0 9.1 - 12.3 fL [facility] RBC 5.18 4.30 - 5.80 M/cumm [facility] MCV 87.3 81.3 - 96.4 fL [facility] MCH 29.9 27.1 - 33.3 pg [facility] MCHC 34.3 32.3 - 35.7 g/dL [facility] RDW CV 14.5 11.1 - 14.9 % [facility] RDW SD 46.7 35.7 - 48.1 fL [facility] NRBC abs 0.00 0.00 - 0.01 K/cumm [facility] Blood Venous blood specimen / Unknown 03/09/2025 2:59 PM CDT 03/09/2025 3:02 PM CDT us Abdiel Valverde MD LAB BLOOD ORDERABLES Final Resul t Performing Organization Address [facility] de Phone Number [facility] [address] [employer] [facility] [place] [address] * Lipase (03/09/2025 2:59 PM CDT) Pathologist [facility] Lipase 81 10 - 99 Units/L Blood Venous blood specimen / Unknown 03/09/2025 2:59 PM CDT 03/09/2025 3:02 PM CDT us Abdiel Valverde MD LAB BLOOD ORDERABLES Final Resul t Performing Organization Address [facility] de Phone Number [facility] [address] [employer] [facility] [place] [address] * (ABNORMAL) Comprehensive metabolic panel (03/09/2025 2:59 PM CDT) Pathologist [facility] Sodium 141 135 - 145 mmol/L Potassium, pl 4.1 3.3 - 4.9 mmol/L [facility] Chloride 105 97 - 110 mmol/L [facility] CO2 21(L) 22 - 32 mmol/L [facility] Anion gap 15 2 - 15 mmol/L [facility] BUN 10 6 - 25 mg/dL [facility] Creatinine 0.88 0.80 - 1.30 mg/dL [facility] Glucose [...] interpretive data was last revised 2022. Calcium 9.7 8.5 - 10.3 mg/dL [facility] Bilirubin, total 0.4 0.1 - 1.2 mg/dL [facility] Protein, pl 7.1 6.5 - 8.5 g/dL [facility] Albumin 4.6 3.5 - 5.0 g/dL [facility] Alk phos 89 40 - 130 Units/L [facility] ALT 19 7 - 55 Units/L [facility] AST 20 10 - 50 Units/L [facility] Blood 03/09/2025 2:59 PM CDT 03/09/2025 3:02 PM CDT Abdiel Valverde MD LAB BLOOD ORDERABLES Final Resul t [facility] [address] [facility] Department [place] [address] * eGFR (02/10/2025 2:35 AM CDT) eGFR [...] was last reviewed 2021. Testing performed by: [address] [address] Blood 02/10/2025 2:35 AM CDT 02/10/2025 2:38 AM CDT [facility] [employer] LAB BLOOD ORDERABLES Final Res ult Performing Organization Address [facility] de Phone Number [address] [place] [address] * Lipase (02/10/2025 2:35 AM CDT) Lipase 37 10 - 99 Units/L Comment:Testing performed by : [address] [address] Blood 02/10/2025 2:35 AM CDT 02/10/2025 2:38 AM CDT Kingsley [employer] LAB BLOOD ORDERABLES Final Res ult Performing Organization Address [facility] de Phone Number [address] [place] [address] * Ethanol (02/10/2025 2:35 AM CDT) Ethanol <10 <=10 mg/dL Comment: Interpretive Data Legal limit of intoxication > or = 80 mg/dL Levels > or = 400 mg/dL are potentially TOXIC. Current interpretive data was last revised on 2018. Testing performed by: [address] [address] Blood 02/10/2025 2:35 AM CDT 02/10/2025 2:38 AM CDT us Kingsley Villanueva DO LAB BLOOD ORDERABLES Final Res ult NEEL 6[address] [facility] Department [place] [address] * Comprehensive metabolic panel (02/10/2025 2:35 AM CDT) Sodium 140 135 - 145 mmol/L Comment:Testing performed by : [address] [address] Potassium, pl 3.7 3.3 - 4.9 mmol/L NEEL Comment:Testing performed by : [address] [address] Chloride 103 97 - 110 mmol/L NEEL Comment:Testing performed by : [address] [address] CO2 25 22 - 32 mmol/L NEEL Comment:Testing performed by : [address] [address] Anion gap 12 2 - 15 mmol/L NEEL Comment:Testing performed by : [address] [address] BUN 9 6 - 25 mg/dL NEEL Comment:Testing performed by : [address] [address] Creatinine 1.01 0.80 - 1.30 mg/dL NEEL Comment:Testing performed by : [address] [address] Glucose 104 70 - 199 mg/dL NEEL [...] was last revised 2022. Testing performed by: [address] [address] Calcium 9.8 8.5 - 10.3 mg/dL NEEL Comment:Testing performed by : [address] [address] Bilirubin, total 0.4 0.1 - 1.2 mg/dL NEEL Comment:Testing performed by : [address] [address] Protein, pl 6.5 6.5 - 8.5 g/dL NEEL Comment:Testing performed by : [address] [address] Albumin 4.2 3.5 - 5.0 g/dL NEEL Comment:Testing performed by : [address] [address] Alk phos 72 40 - 130 Units/L NEEL Comment:Testing performed by : [address] [address] ALT 16 7 - 55 Units/L NEEL Comment:Testing performed by : [address] [address] AST 18 10 - 50 Units/L NEEL Comment:Testing performed by : [address] [address] Blood 02/10/2025 2:35 AM CDT 02/10/2025 2:38 AM CDT us Kingsley Villanueva DO LAB BLOOD ORDERABLES Final Res ult NEEL 3539 [facility] Department [place] [address] * (ABNORMAL) Differential, auto (02/10/2025 1:05 AM CDT) Neutrophil abs 5.93 1.50 - 6.50 K/cumm Comment:Testing performed by : [address] [address] Imm gran abs 0.04 0.00 - 0.10 K/cumm [facility] Comment:Testing performed by : [address] [address] Lymphocyte abs 3.01 0.80 - 3.30 K/cumm [facility] Comment:Testing performed by : [address], [place]., [address] Monocyte abs 1.36(H) 0.20 - 0.80 K/cumm [facility] Comment:Testing performed by : [address], [place]., [address] Eosinophil abs 0.17 0.00 - 0.50 K/cumm [facility] Comment:Testing performed by : [address] [address] Basophil abs 0.05 0.00 - 0.10 K/cumm [facility] Comment:Testing performed by : [address] [address] Neutrophil pct 56.1 % [facility] Comment: Interpretive Data Percent cell count reference ranges are not reported, since discordance with absolute values may lead to misinterpretation of CBC data. Current Interpretive Data was last revised on 2017. Testing performed by: [address] [address] Imm gran pct 0.4 % [facility] Comment: Interpretive Data Percent cell count reference ranges are not reported, since discordance with absolute values may lead to misinterpretation of CBC data. Current Interpretive Data was last revised on 2017. Testing performed by: [address] [address] Lymphocyte pct 28.5 % [facility] Comment: Interpretive Data Percent cell count reference ranges are not reported, since discordance with absolute values may lead to misinterpretation of CBC data. Current Interpretive Data was last revised on 2017. Testing performed by: [address] [address] Monocyte pct 12.9 % [facility] Comment: Interpretive Data Percent cell count reference ranges are not reported, since discordance with absolute values may lead to misinterpretation of CBC data. Current Interpretive Data was last revised on 2017. Testing performed by: [address] [address] Eosinophil pct 1.6 % NEEL SMITH Comment: Interpretive Data Percent cell count reference ranges are not reported, since discordance with absolute values may lead to misinterpretation of CBC data. Current Interpretive Data was last revised on 2017. Testing performed by: [address] [address] Basophil pct 0.5 % NEEL SMITH Comment: Interpretive Data Percent cell count reference ranges are not reported, since discordance with absolute values may lead to misinterpretation of CBC data. Current Interpretive Data was last revised on 2017. Testing performed by: [address] [address] Blood 02/10/2025 1:05 AM CDT 02/10/2025 1:14 AM CDT us Kingsley Villanueva DO LAB BLOOD ORDERABLES Final Res ult NEEL [facility] Department [place] [address] * (ABNORMAL) CBC with auto differential (02/10/2025 1:05 AM CDT) WBC 10.56(H) 3.80 - 9.90 K/cumm Comment:Testing performed by : [address] [address] Hgb 13.8 13.0 - 17.5 g/dL NEEL SMITH Comment:Testing performed by : [address] [address] Hct 40.2 38.9 - 50.3 % NEEL SMITH Comment:Testing performed by : [address] [address] Plt 281 150 - 400 K/cumm NEEL SMITH Comment:Testing performed by : [address] [address] MPV 10.1 9.1 - 12.3 fL NEEL MSITH Comment:Testing performed by : [address] [address] RBC 4.59 4.30 - 5.80 M/cumm NEEL SMITH Comment:Testing performed by : [address] [address] MCV 87.6 81.3 - 96.4 fL NEEL SMITH Comment:Testing performed by : [address], [address] MCH 30.1 27.1 - 33.3 pg NEEL Comment:Testing performed by : [address] [address] MCHC 34.3 32.3 - 35.7 g/dL NEEL Comment:Testing performed by : [address] [address] RDW CV 15.4(H) 11.1 - 14.9 % NEEL Comment:Testing performed by : [address], [address] RDW SD 49.1(H) 35.7 - 48.1 fL NEEL Comment:Testing performed by : [address] [address] NRBC abs 0.00 0.00 - 0.01 K/cumm NEEL Comment:Testing performed by : [address] [address] Blood Venous blood specimen / Unknown 02/10/2025 1:05 AM CDT 02/10/2025 1:14 AM CDT us Kingsley Villanueva DO LAB BLOOD ORDERABLES Final Res ult NEEL [address] [facility] Department [place] [address] * eGFR (02/07/2025 4:42 AM CDT) eGFR >90 >=60 mL/min/1. 73 [...] interpretive data was last reviewed 2021. Blood 02/07/2025 4:42 AM CDT 02/07/2025 4:51 AM CDT us Yanira Strickland MD LAB BLOOD ORDERABLES Final Result [facility] [address] Department [place] [address] * (ABNORMAL) Differential, auto (02/07/2025 4:42 AM CDT) Neutrophil abs 8.27(H) 1.50 - 6.50 K/cumm Imm gran abs 0.04 0.00 - 0.10 K/cumm [facility] Lymphocyte abs 2.28 0.80 - 3.30 K/cumm [facility] Monocyte abs 1.16(H) 0.20 - 0.80 K/cumm [facility] Eosinophil abs 0.15 0.00 - 0.50 K/cumm [facility] Basophil abs 0.07 0.00 - 0.10 K/cumm [facility] Neutrophil pct 69.1 % [facility] [facility] Comment: Interpretive Data Percent cell count reference ranges are not reported, since discordance with absolute values may lead to misinterpretation of CBC data. Current Interpretive Data was last revised on 2017. Imm gran pct 0.3 % [facility] Comment: Interpretive Data Percent cell count reference ranges are not reported, since discordance with absolute values may lead to misinterpretation of CBC data. Current Interpretive Data was last revised on 2017. Lymphocyte pct 19.0 % [facility] Comment: Interpretive Data Percent cell count reference ranges are not reported, since discordance with absolute values may lead to misinterpretation of CBC data. Current Interpretive Data was last revised on 2017. Monocyte pct 9.7 % [facility] Comment: Interpretive Data Percent cell count reference ranges are not reported, since discordance with absolute values may lead to misinterpretation of CBC data. Current Interpretive Data was last revised on 2017. Eosinophil pct 1.3 % [facility] Comment: Interpretive Data Percent cell count reference ranges are not reported, since discordance with absolute values may lead to misinterpretation of CBC data. Current Interpretive Data was last revised on 2017. Basophil pct 0.6 % [facility] Comment: Interpretive Data Percent cell count reference ranges are not reported, since discordance with absolute values may lead to misinterpretation of CBC data. Current Interpretive Data was last revised on 2017. Blood 02/07/2025 4:42 AM CDT 02/07/2025 4:51 AM CDT Yanira Strickland MD LAB BLOOD ORDERABLES Final Result [facility] [address] Department [place] [address] * (ABNORMAL) CBC with auto differential (02/07/2025 4:42 AM CDT) WBC 11.97(H) 3.80 - 9.90 K/cumm Hgb 14.8 13.0 - 17.5 g/dL [facility] Hct 43.2 38.9 - 50.3 % [facility] Plt 284 150 - 400 K/cumm [facility] MPV 9.8 9.1 - 12.3 fL [facility] RBC 4.81 4.30 - 5.80 M/cumm [facility] MCV 89.8 81.3 - 96.4 fL [facility] MCH 30.8 27.1 - 33.3 pg [facility] MCHC 34.3 32.3 - 35.7 g/dL [facility] RDW CV 14.9 11.1 - 14.9 % [facility] RDW SD 49.8(H) 35.7 - 48.1 fL [facility] NRBC abs 0.00 0.00 - 0.01 K/cumm [facility] Blood Venous blood specimen / Unknown 02/07/2025 4:42 AM CDT 02/07/2025 4:51 AM CDT Yanira Strickland MD LAB BLOOD ORDERABLES Final Result [facility] [address] Department of [employer] [place], [place] [id number] * (ABNORMAL) Lipase (02/07/2025 4:42 AM CDT) Pathologist [facility] Lipase 136(H) 10 - 99 Units/L Blood Venous blood specimen / Unknown 02/07/2025 4:42 AM CDT 02/07/2025 4:51 AM CDT Yanira Strickland MD LAB BLOOD ORDERABLES Final Result Performing Organization Address City/[facility]/ZIP Co de Phone Number [facility] [address] Department [place] [place] [address] * (ABNORMAL) Comprehensive metabolic panel (02/07/2025 4:42 AM CDT) Pathologist [facility] Sodium 140 135 - 145 mmol/L Potassium, pl 4.2 3.3 - 4.9 mmol/L [facility] Chloride 105 97 - 110 mmol/L [facility] CO2 20(L) 22 - 32 mmol/L [facility] Anion gap 15 2 - 15 mmol/L [facility] BUN 8 6 - 25 mg/dL [facility] Creatinine 0.89 0.80 - 1.30 mg/dL [facility] Glucose 103 70 - 199 mg/dL [facility] Comment: Interpretive Data Fasting glucose [...] interpretive data was last revised 2022. Calcium 9.1 8.5 - 10.3 mg/dL [facility] Bilirubin, total 0.5 0.1 - 1.2 mg/dL [facility] Protein, pl 6.7 6.5 - 8.5 g/dL [facility] Albumin 4.1 3.5 - 5.0 g/dL [facility] Alk phos 73 40 - 130 Units/L [facility] ALT 14 7 - 55 Units/L [facility] AST 22 10 - 50 Units/L [facility] Comment:Slightly Hemolyzed S pecimen Blood 02/07/2025 4:42 AM CDT 02/07/2025 4:51 AM CDT Yanira Strickland MD LAB BLOOD ORDERABLES Final Result [facility] [address] Department [place] [address] * eGFR (02/06/2025 4:23 AM CDT) eGFR >90 >=60 mL/min/1. 73 [...] interpretive data was last reviewed 2021. Blood 02/06/2025 4:23 AM CDT 02/06/2025 4:25 AM CDT us Odilia Johnston [employer] SPECIALIST LAB BLOOD ORDERABLES Fin al Result [place] [id number] [facility] Department [place] [address] * (ABNORMAL) Differential, auto (02/06/2025 4:23 AM CDT) Neutrophil abs 15.47(H) 1.50 - 6.50 K/cumm Imm gran abs 0.09 0.00 - 0.10 K/cumm [facility] Lymphocyte abs 1.21 0.80 - 3.30 K/cumm [facility] Monocyte abs 1.23(H) 0.20 - 0.80 K/cumm [facility] Eosinophil abs 0.08 0.00 - 0.50 K/cumm [facility] Basophil abs 0.05 0.00 - 0.10 K/cumm [facility] Neutrophil pct 85.3 % [facility] Comment: Interpretive Data Percent cell count reference ranges are not reported, since discordance with absolute values may lead to misinterpretation of CBC data. Current Interpretive Data was last revised on 2017. Imm gran pct 0.5 % [facility] Comment: Interpretive Data Percent cell count reference ranges are not reported, since discordance with absolute values may lead to misinterpretation of CBC data. Current Interpretive Data was last revised on 2017. Lymphocyte pct 6.7 % [facility] Comment: Interpretive Data Percent cell count reference ranges are not reported, since discordance with absolute values may lead to misinterpretation of CBC data. Current Interpretive Data was last revised on 2017. Monocyte pct 6.8 % [facility] Comment: Interpretive Data Percent cell count reference ranges are not reported, since discordance with absolute values may lead to misinterpretation of CBC data. Current Interpretive Data was last revised on 2017. Eosinophil pct 0.4 % [facility] Comment: Interpretive Data Percent cell count reference ranges are not reported, since discordance with absolute values may lead to misinterpretation of CBC data. Current Interpretive Data was last revised on 2017. Basophil pct 0.3 % [facility] Comment: Interpretive Data Percent cell count reference ranges are not reported, since discordance with absolute values may lead to misinterpretation of CBC data. Current Interpretive Data was last revised on 2017. Blood 02/06/2025 4:23 AM CDT 02/06/2025 4:25 AM CDT Odilia Johnston [employer]ER [employer] SPECIALIST LAB BLOOD ORDERABLES Fin al Result [place] [id number] [facility] Department of Laboratories [place], [place] [id number] * (ABNORMAL) CBC with auto differential (02/06/2025 4:23 AM CDT) WBC 18.13(H) 3.80 - 9.90 K/cumm Hgb 14.4 13.0 - 17.5 g/dL [facility] Hct 42.6 38.9 - 50.3 % [facility] Plt 274 150 - 400 K/cumm [facility] MPV 10.0 9.1 - 12.3 fL [facility] RBC 4.77 4.30 - 5.80 M/cumm [facility] MCV 89.3 81.3 - 96.4 fL [facility] MCH 30.2 27.1 - 33.3 pg [facility] MCHC 33.8 32.3 - 35.7 g/dL [facility] RDW CV 14.8 11.1 - 14.9 % [facility] RDW SD 48.6(H) 35.7 - 48.1 fL [facility] NRBC abs 0.00 0.00 - 0.01 K/cumm [facility] Blood 02/06/2025 4:23 AM CDT 02/06/2025 4:25 AM CDT Odilia Johnston CON[employer]ER INSIGHT[employer] SPECIALIST LAB BLOOD ORDERABLES Fin al Result Performing Organization Address [facility] de Phone Number NEEL [address] [address] * Lipase (02/06/2025 4:23 AM CDT) Pathologist [facility] Lipase 56 10 - 99 Units/L Blood 02/06/2025 4:23 AM CDT 02/06/2025 4:25 AM CDT Odilia Damaris Johnston LAB BLOOD ORDERABLES Fin al Result Performing Organization Address [facility] de Phone Number QUINT[address] [address] * Ethanol (02/06/2025 4:23 AM CDT) [facility] Ethanol <10 <=10 mg/dL Comment: Interpretive Data Legal limit of intoxication > or = 80 mg/dL Levels > or = 400 mg/dL are potentially TOXIC. Current interpretive data was last revised on 2018. Blood 02/06/2025 4:23 AM CDT 02/06/2025 4:25 AM CDT Odilia Johnston [employer]ER [employer]IGHT[employer] SPECIALIST LAB BLOOD ORDERABLES Fin al Result Performing Organization Address [facility] de Phone Number QU[address]EN[address] [address] * Comprehensive metabolic panel (02/06/2025 4:23 AM CDT) [facility] Sodium 140 135 - 145 mmol/L Potassium, pl 4.2 3.3 - 4.9 mmol/L [facility] Chloride 106 97 - 110 mmol/L [facility] CO2 24 22 - 32 mmol/L [facility] Anion gap 10 2 - 15 mmol/L [facility] BUN 8 6 - 25 mg/dL [facility] Creatinine 0.94 0.80 - 1.30 mg/dL [facility] Glucose 118 70 - 199 mg/dL [facility] Comment: Interpretive Data Fasting glucose >/= 126 [...] interpretive data was last revised 2022. Calcium 9.1 8.5 - 10.3 mg/dL [facility] Bilirubin, total 0.3 0.1 - 1.2 mg/dL [facility] Protein, pl 6.7 6.5 - 8.5 g/dL [facility] Albumin 4.3 3.5 - 5.0 g/dL [facility] Alk phos 75 40 - 130 Units/L [facility] ALT 13 7 - 55 Units/L [facility] AST 20 10 - 50 Units/L [facility] Blood 02/06/2025 4:23 AM CDT 02/06/2025 4:25 AM CDT Odilia Johnston CON[employer]ER [employer]IGHT[employer] SPECIALIST LAB BLOOD ORDERABLES Fin al Result [facility] [address] [facility] Department of Laboratories [place], [place] [id number] * Troponin T high-sensitivity 2-hour (01/28/2025 4:34 PM CDT) Trop T hs <6 <=22 ng/L Comment: Interpretive Data For further hscTnT resources including the diagnostic algorithm and an aid in interpretation, copy and paste this link: https://nrl.testcatalog.org/show/hsTrop Current Interpretive Data last revised 2020. Testing performed by: [facility], [address] [place] [address]., [address] Trop T hs delta -1 ng/L [facility] Comment:Testing performed by : [facility], [address] [place] [address]., [address] Trop T hs interp Insignificant NELE SMITH Comment:Testing performed by : [facility], [address] [place] [address]., [address] Blood 01/28/2025 4:34 PM CDT 01/28/2025 4:41 PM CDT us Perez Hayes DO LAB BLOOD ORDERABLES Final Res ult NEEL SMITH [address] [facility] Department [place] [address] * CT Abdomen Pelvis W [...] Francisco Jesus M.D. KT: MAN Report ID: [id number] [place] Location: [place] [address] Procedure Note Jose Francisco Jesus MD - [...] Francisco Jesus M.D. KT: KT Report ID: [id number] [place] Location: [place] [address] [facility] [address] PROCEDURES Renee l Result * ECG 12 lead (01/28/2025 2:40 PM CDT) Ventricular Rate EKG/Min 83 BPM [facility] Atrial Rate 83 BPM [facility] NE-Interval (MSEC) 114 ms [facility] QRS-Interval (MSEC) 96 ms [facility] QT-Interval (MSEC) 352 ms [facility] QTc 413 ms [facility] P [place] 68 degrees [facility] R [place] 51 degrees [facility] T [place] 28 degrees [facility] Diagnosis Normal sinus rhythm Normal ECG When compared with ECG of 22-JAN-2025 05:23, Nonspecific T wave abnormality now evident in Inferior leads Confirmed by NOE MARTÍNEZ M.D. ([id number]) on 01/30/2025 1:18:18 PM [facility] 01/28/2025 2:40 PM CDT 01/30/2025 1:18 PM CDT Perez Hayes DO ECG ORDERABLES Final Result Performing Organization Address [facility] Co de Phone Number [facility] * Troponin T high-sensitivity series (baseline, 2hr, 4hr, 6hr) (01/28/2025 2:38 PM CDT) Pathologist [facility] Trop T hs 7 <=22 ng/L Comment: Interpretive Data For further hscTnT resources including the diagnostic algorithm and an aid in interpretation, copy and paste this link: https://nrl.testcatalog.org/show/hsTrop Current Interpretive Data last revised 2020. Testing performed by: [facility], [address] [place] [address]., [address] Blood 01/28/2025 2:38 PM CDT 01/28/2025 2:42 PM CDT Perez Hayes DO LAB BLOOD ORDERABLES Final Res ult Performing Organization Address City/[facility]/ZIP Co de Phone Number NEEL [address] [facility] Department [place] [address] * eGFR (01/28/2025 2:38 PM CDT) eGFR [...] was last reviewed 2021. Testing performed by: [address] [address] Blood 01/28/2025 2:38 PM CDT 01/28/2025 2:42 PM CDT us Perez Hayes DO LAB BLOOD ORDERABLES Final Res ult [facility] [address] [facility] Department of Laboratories [place], [place] [id number] * (ABNORMAL) Differential, auto (01/28/2025 2:38 PM CDT) Neutrophil abs 11.33(H) 1.50 - 6.50 K/cumm Comment:Testing performed by : [address] [address] Imm gran abs 0.05 0.00 - 0.10 K/cumm NEEL Comment:Testing performed by : [address] [address] Lymphocyte abs 0.97 0.80 - 3.30 K/cumm NEEL Comment:Testing performed by : [address] [address] Monocyte abs 0.76 0.20 - 0.80 K/cumm NEEL Comment:Testing performed by : [address] [address] Eosinophil abs 0.03 0.00 - 0.50 K/cumm NEEL Comment:Testing performed by : [address] [address] Basophil abs 0.04 0.00 - 0.10 K/cumm NEEL Comment:Testing performed by : [address] [address] Neutrophil pct 85.9 % [facility] Comment: Interpretive Data Percent cell count reference ranges are not reported, since discordance with absolute values may lead to misinterpretation of CBC data. Current Interpretive Data was last revised on 2017. Testing performed by: [address] [address] Imm gran pct 0.4 % [facility] Comment: Interpretive Data Percent cell count reference ranges are not reported, since discordance with absolute values may lead to misinterpretation of CBC data. Current Interpretive Data was last revised on 2017. Testing performed by: [address] [address] Lymphocyte pct 7.4 % [facility] Comment: Interpretive Data Percent cell count reference ranges are not reported, since discordance with absolute values may lead to misinterpretation of CBC data. Current Interpretive Data was last revised on 2017. Testing performed by: [address] [address] Monocyte pct 5.8 % [facility] Comment: Interpretive Data Percent cell count reference ranges are not reported, since discordance with absolute values may lead to misinterpretation of CBC data. Current Interpretive Data was last revised on 2017. Testing performed by: [address] [address] Eosinophil pct 0.2 % [facility] Comment: Interpretive Data Percent cell count reference ranges are not reported, since discordance with absolute values may lead to misinterpretation of CBC data. Current Interpretive Data was last revised on 2017. Testing performed by: [address] [address] Basophil pct 0.3 % [facility] Comment: Interpretive Data Percent cell count reference ranges are not reported, since discordance with absolute values may lead to misinterpretation of CBC data. Current Interpretive Data was last revised on 2017. Testing performed by: [address] [address] Blood 01/28/2025 2:38 PM CDT 01/28/2025 2:42 PM CDT us Perez Hayes DO LAB BLOOD ORDERABLES Final Res ult NEEL [address] [facility] Department [place] [address] * (ABNORMAL) Urinalysis reflex to microscopic and culture Urine (01/28/2025 2:38 PM CDT) Color, ur Yellow Yellow Comment:Testing performed by : [address] [address] Clarity, ur Cloudy(A) Clear NEEL Comment:Testing performed by : [address] [address] Specific gravity, ur 1.012 1.003 - 1.030 NEEL Comment:Testing performed by : [address] [address] pH, urine 8.0 NEEL Comment: Interpretive Data U rine pH is affected by diet, medications, systemic acid-base disturbances, and renal tubular function. pH may affect urinary stone formation. For example, urine pH below 6.0 may help reduce the tendency for calcium phosphate stones and pH greater than 6.0 may reduce the tendency for uric acid stone formation. Source: [facility] [employer] Current Interpretive Data was last revised on 2017 Testing performed by: [address] [address] Protein, ur ql Negative Negative NEEL Comment:Testing performed by : [address] [address] Glucose, ur ql Negative Negative NEEL Comment:Testing performed by : [address] [address] Ketones, ur Negative Negative NEEL Comment:Testing performed by : [address] [address] Bilirubin, ur Negative Negative NEEL Comment:Testing performed by : [address] [address] Blood, ur Negative Negative NEEL SMITH Comment:Testing performed by : [address] [address] Urobilinogen, ur <2.0 <2.0 mg/dL NEEL SMITH Comment:Testing performed by : [address] [address] Nitrite, ur Negative Negative NEEL SMITH Comment:Testing performed by : [address] [address] Leukocyte esterase, ur Negative Negative NEEL Comment:Testing performed by : [address] [address] UA reflex comment Reflex conditions for microscopic UA and culture not met. NEEL SMITH Comment:Testing performed by : [address] [address] Urine 01/28/2025 2:38 PM CDT 01/28/2025 2:42 PM CDT us Perez Hayes DO LAB MICROBIOLOGY - GENERAL ORD ERABLES Final Result NEEL [facility] Department [place] [address] * (ABNORMAL) CBC with auto differential (01/28/2025 2:38 PM CDT) [facility] WBC 13.18(H) 3.80 - 9.90 K/cumm Comment:Testing performed by : [address] [address] Hgb 14.6 13.0 - 17.5 g/dL NEEL SMITH Comment:Testing performed by : [address] [address] Hct 43.5 38.9 - 50.3 % NEEL SMITH Comment:Testing performed by : [address] [address] Plt 258 150 - 400 K/cumm NEEL SMITH Comment:Testing performed by : [address] [address] MPV 10.0 9.1 - 12.3 fL NEEL SMITH Comment:Testing performed by : [address] [address] RBC 4.95 4.30 - 5.80 M/cumm NEEL SMITH Comment:Testing performed by : [address] [address] MCV 87.9 81.3 - 96.4 fL NEEL SMITH Comment:Testing performed by : [address] [address] MCH 29.5 27.1 - 33.3 pg NEEL SMITH Comment:Testing performed by : [address] [address] MCHC 33.6 32.3 - 35.7 g/dL NEEL SMITH Comment:Testing performed by : [address] [address] RDW CV 14.8 11.1 - 14.9 % NEEL Comment:Testing performed by : [address] [address] RDW SD 47.5 35.7 - 48.1 fL NEEL Comment:Testing performed by : [address] [address] NRBC abs 0.00 0.00 - 0.01 K/cumm NEEL Comment:Testing performed by : [address] [address] Blood Venous blood specimen / Unknown 01/28/2025 2:38 PM CDT 01/28/2025 2:42 PM CDT us Perez Hayes DO LAB BLOOD ORDERABLES Final Res ult NEEL [address] [facility] Department [place] [address] * Lipase (01/28/2025 2:38 PM CDT) Lipase 92 10 - 99 Units/L Comment:Testing performed by : [address] [address] Blood Venous blood specimen / Unknown 01/28/2025 2:38 PM CDT 01/28/2025 2:42 PM CDT us Perez Hayes DO LAB BLOOD ORDERABLES Final Res ult NEEL [address] [facility] Department [place] [address] * Comprehensive metabolic panel (01/28/2025 2:38 PM CDT) Sodium 142 135 - 145 mmol/L Comment:Testing performed by : [address] [address] Potassium, pl 4.0 3.3 - 4.9 mmol/L NEEL Comment:Testing performed by : [address] [address] Chloride 106 97 - 110 mmol/L NEEL Comment:Testing performed by : [address] [address] CO2 22 22 - 32 mmol/L NEEL Comment:Testing performed by : [address] [address] Anion gap 14 2 - 15 mmol/L NEEL Comment:Testing performed by : [address] [address] BUN 7 6 - 25 mg/dL NEEL Comment:Testing performed by : [address] [address] Creatinine 0.90 0.80 - 1.30 mg/dL NEEL Comment:Testing performed by : [address] [address] Glucose 136 70 - 199 mg/dL NEEL [...] was last revised 2022. Testing performed by: [address] [address] Calcium 9.6 8.5 - 10.3 mg/dL NEEL Comment:Testing performed by : [address] [address] Bilirubin, total 0.5 0.1 - 1.2 mg/dL NEEL Comment:Testing performed by : [address] [address] Protein, pl 6.9 6.5 - 8.5 g/dL NEEL Comment:Testing performed by : [address] [address] Albumin 4.6 3.5 - 5.0 g/dL NEEL Comment:Testing performed by : [address] [address] Alk phos 87 40 - 130 Units/L NEEL Comment:Testing performed by : [address] [address] ALT 13 7 - 55 Units/L NEEL Comment:Testing performed by : [address] [address] AST 15 10 - 50 Units/L NEEL Comment:Testing performed by : [address] [address] Blood 01/28/2025 2:38 PM CDT 01/28/2025 2:42 PM CDT us Perez Hayes DO LAB BLOOD ORDERABLES Final Res ult NEEL [address] [facility] Department [place] [address] * Troponin T high-sensitivity 4-hour (01/22/2025 9:04 [...] BLOOD ORDERABLES Final Result NEEL SMITH [address] [facility] Department [place] [address] * CT Abdomen Pelvis W Contrast (01/22/2025 [...] 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 T: Report ID: [id number] [place] Location: [place] [address] Freddy Yao DO IMG CT PROCEDURES Final [...] Organization Address City/[facility] Co de Phone Number NEEL [address] [place] [place] [address] * Sepsis Lactate w/ Reflex (01/22/2025 7:02 AM CDT) Pathologist [facility] Sepsis Lactate 1.1 0.7 - 2.0 mmol/L Blood 01/22/2025 7:02 AM CDT 01/22/2025 7:04 AM CDT Freddy Yao DO LAB BLOOD ORDERABLES Final Result Performing Organization Address [facility] de Phone Number QUINTEN[address] [place] [employer] [address] * ECG 12 lead (01/22/2025 5:23 AM CDT) [facility] Ventricular Rate EKG/Min 79 BPM [facility] Atrial Rate 79 BPM [facility] NE-Interval (MSEC) 116 ms [facility] QRS-Interval (MSEC) 104 ms [facility] QT-Interval (MSEC) 374 ms [facility] QTc 428 ms [facility] P [place] 65 degrees [facility] R [place] 62 degrees [facility] T [place] 66 degrees [facility] Diagnosis Normal sinus rhythm with sinus arrhythmia Incomplete right bundle branch block ST-changes When compared with ECG of 25-NOV-2024 23:02, Significant changes have occurred Confirmed by SULTAN DE JESUS M.D. ([id number]) on 01/22/2025 8:44:23 AM [facility] 01/22/2025 5:23 AM CDT 01/22/2025 8:44 AM CDT Freddy Yao DO ECG ORDERABLES Final Resul t Performing Organization Address [facility] Co de Phone Number [facility] * Troponin T high-sensitivity series [...] Performing Organization Address [facility] Co de Phone Number NEEL [address] [place] [address] * eGFR (01/22/2025 5:21 AM CDT) Pathologist [facility] eGFR 84 >=60 mL/min/1. 73 m2 Comment: [...] Of [place]/ZIP Co de Phone Number NEEL [facility] [place] [address] * (ABNORMAL) Differential, auto (01/22/2025 5:21 AM CDT) Pathologist [facility] Neutrophil abs 15.14(H) 1.50 - 6.50 K/cumm Imm gran abs 0.11(H) 0.00 - 0.10 K/cumm [facility] Lymphocyte abs 2.97 0.80 - 3.30 K/cumm [facility] Monocyte abs 1.83(H) 0.20 - 0.80 K/cumm [facility] Eosinophil abs 0.17 0.00 - 0.50 K/cumm [facility] Basophil abs 0.10 0.00 - 0.10 K/cumm [facility] Neutrophil pct 74.6 % [facility] Comment: Interpretive Data Percent cell count reference ranges are not reported, since discordance with absolute values may lead to misinterpretation of CBC data. Current Interpretive Data was last revised on 2017. Imm gran pct 0.5 % [facility] Comment: Interpretive Data Percent cell count reference ranges are not reported, since discordance with absolute values may lead to misinterpretation of CBC data. Current Interpretive Data was last revised on 2017. Lymphocyte pct 14.6 % [facility] Comment: Interpretive Data Percent cell count reference ranges are not reported, since discordance with absolute values may lead to misinterpretation of CBC data. Current Interpretive Data was last revised on 2017. Monocyte pct 9.0 % [facility] Comment: Interpretive Data Percent cell count reference ranges are not reported, since discordance with absolute values may lead to misinterpretation of CBC data. Current Interpretive Data was last revised on 2017. Eosinophil pct 0.8 % [facility] Comment: Interpretive Data Percent cell count reference ranges are not reported, since discordance with absolute values may lead to misinterpretation of CBC data. Current Interpretive Data was last revised on 2017. Basophil pct 0.5 % [facility] Comment: Interpretive Data Percent cell count reference ranges are not reported, since discordance with absolute values may lead to misinterpretation of CBC data. Current Interpretive Data was last revised on 2017. Blood 01/22/2025 5:21 AM CDT 01/22/2025 5:25 AM CDT Freddy Yao DO LAB BLOOD ORDERABLES Final Result Performing Organization Address [facility] de Phone Number [place] [address] * (ABNORMAL) Urinalysis reflex to microscopic and culture Urine (01/22/2025 5:21 AM CDT) Color, ur Yellow Yellow Clarity, ur Cloudy(A) Clear [facility] Specific gravity, ur 1.021 1.003 - 1.030 [facility] pH, urine 6.5 [facility] Comment: Interpretive Data U rine pH is [...] 2017 Protein, ur ql Negative Negative [facility] Glucose, ur ql Negative Negative [facility] Ketones, ur Negative Negative [facility] Bilirubin, ur Negative Negative [facility] Blood, ur Negative Negative [facility] Urobilinogen, ur 2.0(A) <2.0 mg/dL [facility] Nitrite, ur Negative Negative [facility] Leukocyte esterase, ur Negative Negative [facility] UA reflex comment Reflex conditions for microscopic UA and culture not met. [facility] Urine 01/22/2025 5:21 AM CDT 01/22/2025 5:25 AM CDT Freddy Yao DO LAB MICROBIOLOGY - GENERAL ORDERABLES Final Result Performing Organization Address [facility] Co de Phone Number NEEL [address] [place] [address] * (ABNORMAL) CBC with auto differential (01/22/2025 5:21 AM CDT) WBC 20.32(H) 3.80 - 9.90 K/cumm Hgb 15.4 13.0 - 17.5 g/dL [facility] Hct 46.5 38.9 - 50.3 % [facility] Plt 300 150 - 400 K/cumm [facility] MPV 9.8 9.1 - 12.3 fL [facility] RBC 5.28 4.30 - 5.80 M/cumm [facility] MCV 88.1 81.3 - 96.4 fL [facility] MCH 29.2 27.1 - 33.3 pg [facility] MCHC 33.1 32.3 - 35.7 g/dL [facility] RDW CV 14.8 11.1 - 14.9 % [facility] RDW SD 47.6 35.7 - 48.1 fL [facility] NRBC abs 0.00 0.00 - 0.01 K/cumm [facility] Blood Venous blood specimen / Unknown 01/22/2025 5:21 AM CDT 01/22/2025 5:25 AM CDT Freddy Yao DO LAB BLOOD ORDERABLES Final Result [facility] [address] [facility] Department [place] [address] * (ABNORMAL) Drugs of Abuse Screen, Urine without Confirmation (01/22/2025 5:21 AM CDT) Pathologist [facility] Amphetamine, ur Not [...] 2022. Barbiturates, ur Not Detected CutOff 200ng/mL [facility] Comment: Interpretive Data - Barbiturates: Samples containing greater than 200 ng/mL secobarbital or other cross-reacting barbiturate compounds are reported as positive. False positive and false negative results are possible. Confirmatory testing required for definitive results. Current Interpretive Data was last reviewed 2022. Benzodiazepines, ur Not Detected CutOff 100ng/mL [facility] Comment: Interpretive Data - Benzodiazepines: Samples containing greater than 100 ng/mL nordiazepam or other cross-reacting compounds are reported as positive. False positive and false negative results are possible. Confirmatory testing required for definitive results. Current Interpretive Data was last reviewed 2022. Cannabinoids, ur Screen Positive, presumptive (A) CutOff 50 ng/mL [facility] Comment: Interpretive Data - Cannabinoids: Samples containing greater than 50 ng/mL delta-9 THC -COOH or other cross- reacting compounds are reported as positive. False positive and false negative results are possible. Confirmatory testing required for definitive results. Current Interpretive Data was last reviewed 2022. Cocaine, ur Not Detected CutOff 150ng/mL [facility] Comment: Interpretive Data - Cocaine: Samples containing greater than 150 ng/mL benzoylecgonine or other cross- reacting compounds are reported as positive. False positive and false negative results are possible. Confirmatory testing required for definitive results. Current Interpretive Data was last reviewed 2022. Fentanyl, Ur Not Detected CutOff 5 ng/mL [facility] Comment: Interpretive Data - Fentanyl: Samples containing greater than 5 ng/mL norfentanyl, fentanyl, or other cross-reacting fentanyl compounds are reported as positive. False positive and false negative results are possible. Confirmatory testing required for definitive results. Current Interpretive Data was last reviewed 2023. Methadone, ur Not Detected CutOff 300ng/mL [facility] Comment: Interpretive Data - Methadone: Samples containing greater than 300 ng/mL d,l-methadone or other cross-reacting compounds are reported as positive. False positive and false negative results are possible. Confirmatory testing required for definitive results. Current Interpretive Data was last reviewed 2022. Opiates, ur Not Detected CutOff 300ng/mL [facility] Comment: Interpretive Data - Opiates: Samples containing greater than 300 ng/mL morphine or other cross-reacting compounds are reported as positive. False positive and false negative results are possible. Confirmatory testing required for definitive results. Current Interpretive Data was last reviewed 2022. Oxycodone, ur Not Detected CutOff 100ng/mL [facility] Comment: Interpretive Data - Oxycodone: Samples containing greater than 100 ng/mL oxycodone or other cross-reacting compounds are reported as positive. False positive and false negative results are possible. Confirmatory testing required for definitive results. Current Interpretive Data was last reviewed 2022. Phencyclidine, ur Not Detected CutOff 25 ng/mL [facility] Comment: Interpretive Data - Phencyclidine: Samples containing [...] CDT 01/22/2025 5:25 AM CDT Narrative [facility] - 01/22/2025 5:54 AM CDT Drug of Abuse screening is performed by immunoassay for medical purposes only. This is not to be used for Pain Management purposes. Freddy Yao [facility] URINE ORDERABLES Final Result Performing Organization Address [facility] Co de Phone Number [address] [employer] [place], [place] [id number] * Lipase (01/22/2025 5:21 AM CDT) Pathologist [facility] Lipase 60 10 - 99 Units/L Blood Venous blood specimen / Unknown 01/22/2025 5:21 AM CDT 01/22/2025 5:25 AM CDT Freddy [facility] BLOOD ORDERABLES Final Result Performing Organization Address [facility] de Phone Number [address] [place] [address] * Comprehensive metabolic panel (01/22/2025 5:21 AM CDT) Sodium 143 135 - 145 mmol/L Potassium, pl 3.7 3.3 - 4.9 mmol/L [facility] Chloride 103 97 - 110 mmol/L [facility] CO2 26 22 - 32 mmol/L [facility] Anion gap 14 2 - 15 mmol/L [facility] BUN 8 6 - 25 mg/dL [facility] Creatinine 1.11 0.80 - 1.30 mg/dL [facility] Glucose 140 70 - 199 mg/dL [facility] Comment: Interpretive Data Fasting glucose >/= 126 [...] Calcium 9.9 8.5 - 10.3 mg/dL [facility] Bilirubin, total 0.5 0.1 - 1.2 mg/dL [facility] Protein, pl 7.2 6.5 - 8.5 g/dL [facility] Albumin 4.6 3.5 - 5.0 g/dL [facility] Alk phos 90 40 - 130 Units/L [facility] ALT 16 7 - 55 Units/L [facility] AST 21 10 - 50 Units/L [facility] Blood 01/22/2025 5:21 AM CDT 01/22/2025 5:25 AM CDT Freddy Yao DO LAB BLOOD ORDERABLES Final Result Performing Organization Address City/State/[facility] Co de Phone Number [facility] [address] [facility] Department [place] [address] from Last 3 Months Insurance [facility] Advance Directives For more information, please contact: [phone] * Full Code (Latest Code Status on [...] 12:50 PM 11/16/2023 7:54 PM Care Teams Ice Maker Relationship Specialty Start Date End Date Td Lopez MD [address] [place] [id number] PCP - General Family Medicine 11/09/20 Angie Woodard MD [address] [facility] [address] [place] [address] Consulting Physician Gastroenterology 07/17/21 Vimal Woodruff MD [address] [facility] [address] [place] [address] Consulting Physician Gastroenterology 02/10/22
--- OUTSIDE RECORDS SUMMARY | 2025-03-16 18:31 | XMS_ITS | Clinical Summary ---
Author Organization [facility] Address [address] [place] [phone] Phone Care Team Providers Care Network Coordinator Name Role Phone Unavailable Primary Care [...] on file Legal Sex Male 7:38 PM INSPECTOR SCALES Gender Identity Not on file Sexual Orientation Not on file Last Filed Vital Signs Vital Sign Reading Time Taken Comments Blood Pressure 119/84 07/11/2022 2:03 AM INSPECTOR SCALES Pulse 80 07/11/2022 2:03 AM INSPECTOR SCALES Temperature 36.3 C (97.4 F) 07/11/2022 2:03 AM INSPECTOR SCALES Respiratory Rate 18 07/11/2022 2:03 AM INSPECTOR SCALES Oxygen Saturation 97% 07/11/2022 2:03 AM INSPECTOR SCALES Inhaled Oxygen Concentration - - Weight 79.4 kg (175 lb) 07/10/2022 8:06 PM INSPECTOR SCALES Height 177.8 cm (5' 10) 07/10/2022 8:06 PM INSPECTOR SCALES Body Mass Index 25.11 07/10/2022 8:06 PM INSPECTOR SCALES Plan of Treatment Health Maintenance Due Date Last Done Comments HEPATITIS B VACCINES (1 of 3 - 19+ 3-dose series) 2000 HPV VACCINES (1 - 3-dose SCD M series) 2008 INFLUENZA VACCINE (#1) 2024 , 02/29/2020, 02/09/2018 COVID-19 Vaccine (4 - 2024-2 6 season) 2025 10/29/2021, 11/02/2020, 10/05/2020 DTAP/TDAP/TD VACCINES (2 - T d or Tdap) 10/30/2031 10/29/2021 Insurance [facility] MEDICAID [place]
--- OUTSIDE RECORDS SUMMARY | 2025-03-16 18:31 | XMS_ITS | Clinical Summary ---
Author Organization [facility] [employer] Address [address] [place] [address] Care Team Providers Care Mechanical Engineering Lecturer Name Role Phone Alee Zhao MD Primary Care Provider [phone] Source Comments [facility] [employer],non-owned Affiliates and Associated Physician Practices is amultiple site organization consisting of ambulatory clinics and hospital sitesin [place], [place], [place] and [place]. This disclosure is being madepursuant to the Care Everywhere program and may not contain all information available regarding this patient. Last updated 18.[facility] [employer] Allergies Active Allergy Reactions Criticality Noted Date [...] on file Legal Sex Male 7:46 PM VETERINARY PHARMACOLOGIST Gender Identity Not on file Sexual Orientation Not on file Last Filed Vital Signs Vital Sign Reading Time Taken Comments Blood Pressure 120/71 03/17/2019 5:03 PM VETERINARY PHARMACOLOGIST Pulse 75 03/17/2019 5:03 PM VETERINARY PHARMACOLOGIST Temperature 36.9 C (98.4 F) 03/17/2019 2:00 PM VETERINARY PHARMACOLOGIST Respiratory Rate 17 03/17/2019 5:03 PM VETERINARY PHARMACOLOGIST Oxygen Saturation 99% 03/17/2019 5:03 PM VETERINARY PHARMACOLOGIST Inhaled Oxygen Concentration - - Weight 77.1 kg (170 lb) 03/17/2019 2:00 PM VETERINARY PHARMACOLOGIST Height 177.8 cm (5' 10) 03/17/2019 2:00 PM VETERINARY PHARMACOLOGIST Body Mass Index 24.39 03/17/2019 2:00 PM VETERINARY PHARMACOLOGIST Plan of Treatment Health Maintenance Due Date [...] RFLX NAAT QUANT STAT 03/27/2018 9:12 PM VETERINARY PHARMACOLOGIST HIV-1 HIV-2 ANTIGEN/ANTIBODY STAT 03/27/2018 9:12 PM VETERINARY PHARMACOLOGIST from Last 3 Months or Most Recently Relevant to Health Maintenance Results * HIV-1 HIV-2 ANTIGEN/ANTIBODY (03/27/2018 9:12 PM VETERINARY PHARMACOLOGIST) HIV Antigen/Antibod y 1 & 2 Non-reacti ve Non-react nemesio 03/27/2018 10:17 PM VETERINARY PHARMACOLOGIST [facility] Comment: Neither HIV-1 p24 Antigen nor HIV-1/HIV-2 Antibodies are detected. Blood BLOOD SPECIMEN / Unknown Venipuncture / Unknown 03/27/2018 9:12 PM VETERINARY PHARMACOLOGIST 03/27/2018 9:21 PM VETERINARY PHARMACOLOGIST us Davi Patrick MD LAB - HEMATOLOGY ORDERABLES Fi nal Result Performing Organization Address [facility] Co de Phone Number [address] [phone] * HEPATITIS C AB SCREEN RFLX NAAT QUANT (03/27/2018 9:12 PM VETERINARY PHARMACOLOGIST) Hepatitis C Antibody Non-react nemesio Non-reac tive 03/27/2018 10:20 PM VETERINARY PHARMACOLOGIST [facility] Comment: Hepatitis C Antibody screen indicates no serologic evidence of past or current infection with Hepatitis C Virus. Patients with unexplained liver disease who are immunocompromised or suspected of having acute Hepatitis C infection may benefit from Nucleic Acid Test (RINKU) for Hepatitis C Viral RNA to confirm Hepatitis C status. Blood BLOOD SPECIMEN / Unknown Venipuncture / Unknown 03/27/2018 9:12 PM VETERINARY PHARMACOLOGIST 03/27/2018 9:21 PM VETERINARY PHARMACOLOGIST us Davi Patrick MD LAB - CHEMISTRY ORDERABLES Fin al Result Performing Organization Address [facility] Co de Phone Number [address] [phone] from Last 3 Months or Most Recently Relevant to Health Maintenance Insurance [facility] Care Teams Mechanical Engineering Lecturer Relationship Specialty Start Date End Date Alee Zhao MD [address] [place] [phone] PCP - General Family Medicine 03/25/18
--- OUTSIDE RECORDS SUMMARY | 2025-03-16 18:31 | XMS_ITS | Encounter Summary ---
Author Organization [facility] Healthcare Address [address] [place] [address] Care Team Providers Care Bus Info Consultant Name Role Phone Td Lopez MD Primary Care Provider + Angie Woodard MD Unavailable [phone] Vimal Woodruff MD Unavailable [phone] PastorAlannah MA Unavailable [phone] PastorAlannah fair MA Unavailable [phone] PastorAlannah fair MA Unavailable [phone] Eun Arana RN Unavailable [phone] Lakshmi Garcia LPN Unavailable [phone] Niki Burns MA Unavailable Encounter Details Date Type Department Care Team (Late st Contact Info) Description 12/21/2017 Documentation [id number] [place] [id number] Shannan Farfan, JOHN Social History Tobacco Use Types Packs/Day Years Used Date Smoking Tobacco: Every Day Sex and Gender Information Value Date Recorded Sex Assigned at Not on file Legal Sex Male 3:38 AM NAME PLATE STAMPER Gender Identity Not on file Sexual Orientation [...] COVID: Suspected 06/27/2021 06/27/2021 06/27/2021 12:53 PM NAME PLATE STAMPER COVID19 06/27/2021 06/27/2021 07/08/2021 3:05 AM NAME PLATE STAMPER COVID: Recovered Comment:Added based on recent COVID infection. 07/08/2021 07/14/2021 11/05/2021 3:05 AM C DT COVID: Suspected 05/20/2022 05/20/2022 05/20/2022 2:32 AM NAME PLATE STAMPER COVID: Suspected 09/20/2023 09/20/2023 09/20/2023 9:26 PM CDT COVID: Suspected 10/04/2023 10/04/2023 10/04/2023 3:55 PM CDT documented as of this encounter Care Teams Bus Info Consultant Relationship Specialty Start Date End Date Td Lopez MD [facility] [address] PCP - General Family Medicine 11/09/20 Angie Woodard MD [address] [facility] [address] [place] [address] Consulting Physician Gastroenterology 07/17/21 Vimal Woodruff MD [address] [facility] [address] [place] [address] Consulting Physician Gastroenterology 02/10/22 Alannah Baumann MA [address] [facility] [address] [place] [address] ACO Care Toppiece Cutter 12/31/23 01/05/24 Alannah Baumann MA [address] [facility] [facility] [address] [place] [address] ACO Care Toppiece Cutter 06/29/24 06/30/24 Alannah Baumann MA [address] [place] [address] [address] [place] [address] ACO Care Toppiece Cutter 08/03/24 08/03/24 Eun Arana RN [address] [place] [address] [address] [place] [address] Community Pharmacist 08/17/24 08/25/24 Lakshmi Garcia LPN [address] [place] [address] [address] [place] [address] Community Pharmacist 10/05/24 10/05/24 Niki Burns MA [address] [place] [address] [address] [place] [address] ACO Care Toppiece Cutter 10/18/24 10/19/24 documented as of this encounter
--- OUTSIDE RECORDS SUMMARY | 2025-03-16 18:31 | XMS_ITS | Patient Health Record ---
Author Organization [facility] Address [address] [facility] [address] [place] [address] Care Team Providers Care Bridal Gown Fitter Name Role Phone John TUCKER, Td Primary Care Provider Tucker FIGUEROA YARN SPOOLER, NATALIYA Unavailable Allergies Allergen (clinical drug ingredient) [...] W/U Status Risk Notes Problem Chronic pancreatitis ([id number]) Other chronic pancreatitis (K86.1) Active confirmed Plan Of Treatment No Information Insurance Providers Payer Name Payer Address Payer Phone Subscriber Number Group Number Insured Name Patient Relationship to Insured Coverage Start Date Coverage End Date [address] [id number] Donovan Bailey Self - patient is the insured Medical (General) History Medical History History ICD Code chronic pancreatitis cyclic vomiting hyperemesis cannabis Surgical History Surgery Date(Month/Year) cholecystectomy ERCP
--- OUTSIDE RECORDS SUMMARY | 2025-03-16 18:31 | XMS_ITS | Clinical Summary ---
Author Organization [facility] Address Formerly [facility] [place] [address] Care Team Providers Care Public Works Technician Name Role Phone Td Lopez MD Primary Care Provider [phone] Allergies Active Allergy Reactions Criticality Noted Date Comments Capsaicin Other (see comment) Low 05/20/2019 Pt states it gets into his scars and causes a lot of pain Doxycycline GI Upset Low 03/29/2017 Haloperidol Other (see comment) 01/29/2022 Musculoskeletal pain Metoclopramide Myalgias 03/29/2017 Sulfa Antibiotics Myalgias,Other (see comment) Medium 03/29/2017 Reaction: neurological symptoms per patient Medications CREON [id number] units CAPSULE ENTERIC COATED PARTICLES Take 36,000 [...] pain 10/18/2022 Abdominal pain 10/18/2022 Acute pancreatitis 09/28/2022 Renal infarct 09/08/2022 Marijuana use 09/04/2022 Normocytic normochromic anemia 09/04/2022 Sphincter of Oddi dysfunction 09/04/2022 Tobacco use disorder, continuous 09/04/2022 Pancreatitis 09/02/2022 GI bleed 06/28/2022 Folliculitis 01/08/2022 Overview (09/04/2022): Last Assessment & Plan: - chronic, uncontrolled - start clindamycin gel daily x 7 days - ref to derm for eval. Manipulative behavior 07/14/2021 COVID-19 vaccine series completed 06/27/2021 Overview (09/04/2022): Moderna x2 Drug-seeking behavior 06/27/2021 History of 2019 novel coronavirus disease (COVID -19) 06/27/2021 Drug abuse and dependence 02/12/2021 Overview (09/04/2022): Last Assessment & Plan: - using mariajuana occasionally; has had frequent rx for opioids in ER - pt claims at least several days since last ER visit with narcotics given - record review suggests at least 2 wks - will check UDS Acute recurrent pancreatitis 01/07/2021 Other chronic pancreatitis 12/21/2020 Overview (09/04/2022): Last Assessment & Plan: - stable today - continue current medications - f/u with Dr Rosas as planned - encouraged pt to come to clinic instead of going to ER next time he has abdominal pain Duodenal papillary stenosis 11/27/2020 Hyperemesis 10/18/2019 Annual physical exam 07/15/2019 [...] Colitis 02/18/2019 Cannabis use with cannabis-induced disorder 10/09 Mild malnutrition 10/18/2018 Neutrophilic leukocytosis 10/18/2018 Tobacco use disorder 10/18/2018 Other chronic pancreatitis 09/17/2018 Overview (02/18/2019): Overview: Added automatically from request for surgery [id number] Chronic abdominal pain 03/30/2017 Assessment & Plan (03/30/2017 12:03 PM CURTAIN STITCHER): Acute on chronic, stable Patient with possible [...] Continue to advance diet as tolerated Sepsis 03/30/2017 Assessment & Plan (03/30/2017 12:03 PM CURTAIN STITCHER): Present on admission, resolved Lactic acid 2.8 [...] 03/30/2017 Assessment & Plan (03/30/2017 12:25 AM CURTAIN STITCHER): - established, controlled - continue home fluoxetine, nortriptyline GERD (gastroesophageal reflux disease) 7 Assessment & Plan (03/30/2017 12:25 AM CURTAIN STITCHER): - established, controlled - continue home nexium Hypertension 03/30/2017 Overview (03/30/2017): - established, controlled - continue home metoprolol Assessment & Plan (03/30/2017 1:01 AM CURTAIN STITCHER): - established, controlled - continue home metoprolol Influenza 03/30/2017 Depression 03/30/2017 Overview (02/18/2019): Overview: Last Assessment & Plan: - established, controlled - continue home fluoxetine, nortriptyline Flu 03/29/2017 Assessment & Plan (03/30/2017 12:03 PM CURTAIN STITCHER): Acute, influenza A + on admission, asymptomatic [...] CDT - 02/01/2025 2:12 AM CDT [facility] Room [address] [place] [address] Temo Soriano MD Abdominal Pain Discharge Disposition: [...] No 10/18/2022 Social Connection and Isolation Panel Answer Date Recorded In a typical week, how many times do you talk on the phone with family, friends, or neighbors? Once a week 09/28/2022 How often do you get together with friends or re latives? Once a week 09/28/2022 How often do you attend protestant or amish serv ices? Never 09/28/2022 Do you belong [...] and heating? Not hard at all 10/18/2022 [facility] - [...] Sex Assigned at Male 06/21/2024 7:21 PM CURTAIN STITCHER Legal Sex Male 8:10 AM CDT Gender [...] PCV) 2000 HPV Vaccines (1 - 3-dose SCDM series) 2008 COVID-19 Vaccine ( - season) 2025 10/29/2021, 11/02/2020, 10/05/2020 Influenza Adult (#1) 2025 03/25/2024, 03/20/2023, 02/08/2022, Additional history exists DTaP, Tdap and Td Vaccines (2 - Td or Tdap) 10/30/2031 10/29/2021 Hepatitis C Completed 03/27/2018 Hepatitis A Vaccines Aged Out No long er eligible based [...] discharge from hospital Lifestyle No Sintia Zhao, plastics tooling engineer Procedure Name Priority Date/Time Associated Diagnosis Comments [...] DETECTED NONE DETECTED 01/31/2025 11:28 PM CDT [facility] BARBITURATES SCREEN (U) NONE DETECTED NONE DETECTED 01/31/2025 11:28 PM CDT [facility] BENZODIAZEPINES SCREEN (U) NONE DETECTED NONE DETECTED 01/31/2025 11:28 PM CDT [facility] BUPRENORPHINE SCREEN (U) NONE DETECTED NONE DETECTED 01/31/2025 11:28 PM CDT [facility] COCAINE METABOLITES (U) NONE DETECTED NONE DETECTED 01/31/2025 11:28 PM CDT [facility] METHAMPHETAMINE (U) NONE DETECTED NONE DETECTED 01/31/2025 11:28 PM CDT [facility] METHADONE (U) NONE DETECTED NONE DETECTED 01/31/2025 11:28 PM CDT [facility] OPIATE SCREEN (U) NONE DETECTED NONE DETECTED 01/31/2025 11:28 PM CDT [facility] OXYCODONE SCREEN (U) NONE DETECTED NONE DETECTED 01/31/2025 11:28 PM CDT [facility] PHENCYCLIDINE PCP (U) NONE DETECTED NONE DETECTED 01/31/2025 11:28 PM CDT [facility] CANNABINOIDS SCREEN (U) NONE DETECTED NONE DETECTED 01/31/2025 11:28 PM CDT [facility] TRICYCLIC ANTIDEPRESSANT SCREEN (U) NONE DETECTED NONE DETECTED 01/31/2025 11:28 PM CDT [facility] Comment: NOTE: RESULTS OF [...] SPECIMEN / Unknown 01/31/2025 11:10 PM CDT us Temo Soriano MD URINE ORDERABLES Final Res ult [facility] [address] [place] [address], [place] [phone] * URINALYSIS, AUTO, COMPLETE (01/31/2025 11:10 PM CDT) COLOR (U) YELLOW 01/31/2025 11:30 PM CDT [facility] TRANSPARENCY HAZY 01/31/2025 11:30 PM CDT [facility] SPECIFIC GRAVITY (U) 1.015 1.000 - 1.030 01/31/2025 11:30 PM CDT [facility] U PH 8.0 5.0 - 9.0 01/31/2025 11:30 PM CDT [facility] LEUKOCYTES (U) NEGATIVE NEGATIVE 01/31/2025 11:30 PM CDT [facility] NITRITES NEGATIVE NEGATIVE 01/31/2025 11:30 PM CDT [facility] PROTEIN RANDOM (U) NEGATIVE NEGATIVE 01/31/2025 11:30 PM CDT [facility] GLUCOSE (U) NEGATIVE NEGATIVE 01/31/2025 11:30 PM CDT [facility] KETONES MG/DL (U) NEGATIVE NEGATIVE 01/31/2025 11:30 PM CDT [facility] BILIRUBIN (U) NEGATIVE NEGATIVE 01/31/2025 11:30 PM CDT [facility] BLOOD (U) NEGATIVE NEGATIVE 01/31/2025 11:30 PM CDT [facility] WBC/HPF NONE SEEN 0 - 5 /HPF 01/31/2025 11:30 PM CDT [facility] RBC/HPF NONE SEEN 0 - 5 /HPF 01/31/2025 11:30 PM CDT [facility] EPI/HPF NONE SEEN /HPF 01/31/2025 11:30 PM CDT [facility] CRYSTALS (U) FEW /HPF 01/31/2025 11:30 PM CDT [facility] Comment:AMORPHOUS MATERIAL URINE SPECIMEN OBTAINED BY CLEAN CATCH PROCEDURE / Unknown 01/31/2025 11:10 PM CDT us Temo Soriano MD URINE ORDERABLES Final Res ult [facility] [address] [place] [address], [place] [phone] * (ABNORMAL) COMPREHENSIVE METABOLIC PANEL (01/31/2025 10:49 PM CDT) GLUCOSE 120(H) 70 - 99 MG/DL 01/31/2025 11:14 PM [facility] BUN 6(L) 7 - 18 MG/DL 01/31/2025 11:14 PM [facility] CREATININE S/P/B 1.10 0.7 - 1.3 MG/DL 01/31/2025 11:14 PM [facility] SODIUM S/P/B 141 136 - 145 MMOL/L 01/31/2025 11:14 PM [facility] POTASSIUM S/P/B 3.7 3.5 - 5.1 MMOL/L 01/31/2025 11:14 PM [facility] CHLORIDE S/P/B 102 100 - 108 MMOL/L 01/31/2025 11:14 PM [facility] CO2 28.1 21 - 32 MMOL/L 01/31/2025 11:14 PM [facility] CALCIUM S/P/B 9.6 8.5 - 10.1 MG/DL 01/31/2025 11:14 PM [facility] BILIRUBIN TOTAL S/P/B 0.7 0.2 - 1.2 MG/DL 01/31/2025 11:14 PM [facility] TOTAL PROTEIN S/P/B 7.7 6.4 - 8.2 G/DL 01/31/2025 11:14 PM [facility] ALBUMIN S/P/B 4.4 3.4 - 5.0 G/DL 01/31/2025 11:14 PM [facility] AST 15 15 - 37 U/L 01/31/2025 11:14 PM [facility] ALT 19 16 - 60 U/L 01/31/2025 11:14 PM [facility] ALKALINE PHOSPHATASE S/P/B 85 50 - 136 U/L 01/31/2025 11:14 PM CDT [facility] ANION GAP 10.9 5 - 15 MMOL/L 01/31/2025 11:14 PM CDT [facility] BUN CREATININE RATIO 5.5(L) 6 - 26 01/31/2025 11:14 PM CDT [facility] A/G RATIO 1.3 1.0 - 2.0 RATIO 01/31/2025 11:14 PM CDT [facility] GFR ESTIMATE 85(L) >90 ML/MIN/1.7 3 M2 01/31/2025 11:14 PM CDT [facility] Comment: NOTE: eGFR is not calculated for patients <18 years of age. This is an estimated GFR calculation using the new CKD EPI creatinine equation without race and so does not require a correction factor for race. This estimated GFR should not be used for calculating drug doses. 01/31/2025 10:4 9 PM CDT us Temo Soriano MD LABORATORY Final Resu lt [facility] [address] [place] [address], [place] [phone] * (ABNORMAL) CBC W/DIFF AUTOMATED (01/31/2025 10:49 PM CDT) WBC 19.87(H) 4.4 - 11.0 x10'3/uL 01/31/2025 10:59 PM CDT [facility] RBC 5.09 4.50 - 5.90 x10'6/uL 01/31/2025 10:59 PM CDT [facility] HGB 15.4 14.0 - 17.5 G/DL 01/31/2025 10:59 PM CDT [facility] HCT 44.3 41.5 - 50.4 % 01/31/2025 10:59 PM CDT [facility] MCV 87.0 80.0 - 96.0 FL 01/31/2025 10:59 PM CDT [facility] MCH 30.3 26.5 - 31.4 PG 01/31/2025 10:59 PM CDT [facility] MCHC 34.8 31.9 - 34.8 G/DL 01/31/2025 10:59 PM CDT [facility] RDW 15.0(H) 12.3 - 14.3 % 01/31/2025 10:59 PM CDT [facility] PLT 296 151 - 353 x10'3/uL 01/31/2025 10:59 PM CDT [facility] MPV 10.0 9.7 - 11.9 FL 01/31/2025 10:59 PM CDT [facility] RBC MORPHOLOGY NORMAL 01/31/2025 10:59 PM CDT [facility] PLT MORPH. NORMAL 01/31/2025 10:59 PM CDT [facility] WBC MORPHOLOGY NORMAL 01/31/2025 10:59 PM CDT [facility] LYMPHOCYTES % 8.9(L) 15.8 - 45.0 % 01/31/2025 10:59 PM CDT [facility] NEUTROPHILS % 82.5(H) 42.1 - 71.9 % 01/31/2025 10:59 PM CDT [facility] MONOCYTES % 7.4 5.7 - 12.5 % 01/31/2025 10:59 PM CDT [facility] EOSINOPHILS 0.4 0.0 - 5.6 % 01/31/2025 10:59 PM CDT [facility] BASOPHILS 0.4 0.0 - 1.3 % 01/31/2025 10:59 PM CDT [facility] ABS. NEUTROPHILS 16.39(H) 1.40 - 6.00 x10'3/uL 01/31/2025 10:59 PM CDT [facility] IMMATURE GRANS % 0.4 0.0 - 0.5 % 01/31/2025 10:59 PM CDT [facility] ABS. LYMPHOCYTES 1.77 0.80 - 4.70 x10'3/uL 01/31/2025 10:59 PM CDT [facility] 01/31/2025 10:4 9 PM CDT us Temo Soriano MD LABORATORY Final Resu lt Performing Organization Address [facility]/ZIP Co de Phone Number [facility] [address] [place] [address], [place] [phone] * LIPASE (01/31/2025 10:49 PM CDT) LIPASE 30 16 - 77 UNITS/L 01/31/2025 11:14 PM CDT [facility] 01/31/2025 10:4 9 PM CDT us Temo Soriano MD LABORATORY Final Resu lt Performing Organization Address [facility]/ZIP Co de Phone Number [facility] [address] [place] [address], [place] [phone] from Last 3 Months Insurance MEDICAID Advance [...] 6:07 PM 10/19/2019 4:11 PM Care Teams Public Works Technician Relationship Specialty Start Date End Date Td Lopez MD PCP - General FAMILY PRACTICE 08/18/19
--- OUTSIDE RECORDS SUMMARY | 2025-03-16 19:28 | XMS_ITS | Clinical Summary ---
Author Organization [facility] Address [address] [place] [phone] Phone Care Team Providers Care Screen Stretcher Name Role Phone Unavailable Primary Care Provider [...] on file Legal Sex Male 7:38 PM WEASAND TRIMMER Gender Identity Not on file Sexual Orientation Not on file Last Filed Vital Signs Vital Sign Reading Time Taken Comments Blood Pressure 119/84 07/11/2022 2:03 AM WEASAND TRIMMER Pulse 80 07/11/2022 2:03 AM WEASAND TRIMMER Temperature 36.3 C (97.4 F) 07/11/2022 2:03 AM WEASAND TRIMMER Respiratory Rate 18 07/11/2022 2:03 AM WEASAND TRIMMER Oxygen Saturation 97% 07/11/2022 2:03 AM WEASAND TRIMMER Inhaled Oxygen Concentration - - Weight 79.4 kg (175 lb) 07/10/2022 8:06 PM WEASAND TRIMMER Height 177.8 cm (5' 10) 07/10/2022 8:06 PM WEASAND TRIMMER Body Mass Index 25.11 07/10/2022 8:06 PM WEASAND TRIMMER Plan of Treatment Health Maintenance Due Date Last Done Comments HEPATITIS B VACCINES (1 of 3 - 19+ 3-dose series) 2000 HPV VACCINES (1 - 3-dose SCD M series) 2008 INFLUENZA VACCINE (#1) 2024 , 02/29/2020, 02/09/2018 COVID-19 Vaccine (4 - 2024-2 6 season) 2025 10/29/2021, 11/02/2020, 10/05/2020 DTAP/TDAP/TD VACCINES (2 - T d or Tdap) 10/30/2031 10/29/2021 Insurance [facility] MEDICAID MEDICAID [place]
--- OUTSIDE RECORDS SUMMARY | 2025-03-16 19:28 | XMS_ITS | Clinical Summary ---
Author Organization [facility] Address [address] [place] [address] Care Team Providers Care Locomotive Lubricating Systems Clerk Name Role Phone Alee Zhao MD Primary Care Provider [phone] Source Comments [facility],non-owned Affiliates and Associated Physician Practices is amultiple site organization consisting of ambulatory clinics and hospital sitesin [place], [place], [place] and [place]. This disclosure is being madepursuant to the Care Everywhere program and may not contain all information available regarding this patient. 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 DEVELOPER Gender Identity Not on file Sexual Orientation Not on file Last Filed Vital Signs Vital Sign Reading Time Taken Comments Blood Pressure 120/71 03/17/2019 5:03 PM SENIOR ORACLE DATABASE DEVELOPER Pulse 75 03/17/2019 5:03 PM SENIOR ORACLE DATABASE DEVELOPER Temperature 36.9 C (98.4 F) 03/17/2019 2:00 PM SENIOR ORACLE DATABASE DEVELOPER Respiratory Rate 17 03/17/2019 5:03 PM SENIOR ORACLE DATABASE DEVELOPER Oxygen Saturation 99% 03/17/2019 5:03 PM SENIOR ORACLE DATABASE DEVELOPER Inhaled Oxygen Concentration - - Weight 77.1 kg (170 lb) 03/17/2019 2:00 PM SENIOR ORACLE DATABASE DEVELOPER Height 177.8 cm (5' 10) 03/17/2019 2:00 PM SENIOR ORACLE DATABASE DEVELOPER Body Mass Index 24.39 03/17/2019 2:00 PM SENIOR ORACLE DATABASE DEVELOPER Plan of Treatment Health Maintenance Due Date [...] RFLX NAAT QUANT STAT 03/27/2018 9:12 PM SENIOR ORACLE DATABASE DEVELOPER HIV-1 HIV-2 ANTIGEN/ANTIBODY STAT 03/27/2018 9:12 PM SENIOR ORACLE DATABASE DEVELOPER from Last 3 Months or Most Recently Relevant to Health Maintenance Results * HIV-1 HIV-2 ANTIGEN/ANTIBODY (03/27/2018 9:12 PM SENIOR ORACLE DATABASE DEVELOPER) HIV Antigen/Antibod y 1 & 2 Non-reacti ve Non-react nemesio 03/27/2018 10:17 PM SENIOR ORACLE DATABASE DEVELOPER [facility] Comment: Neither HIV-1 p24 Antigen nor HIV-1/HIV-2 Antibodies are detected. Blood BLOOD SPECIMEN / Unknown Venipuncture / Unknown 03/27/2018 9:12 PM SENIOR ORACLE DATABASE DEVELOPER 03/27/2018 9:21 PM SENIOR ORACLE DATABASE DEVELOPER us Davi Patrick MD LAB - HEMATOLOGY ORDERABLES Fi nal Result Performing Organization Address [facility] Co de Phone Number [address] [phone] * HEPATITIS C AB SCREEN RFLX NAAT QUANT (03/27/2018 9:12 PM SENIOR ORACLE DATABASE DEVELOPER) Hepatitis C Antibody Non-react nemesio Non-reac tive 03/27/2018 10:20 PM SENIOR ORACLE DATABASE DEVELOPER [facility] Comment: Hepatitis C Antibody screen [...] Venipuncture / Unknown 03/27/2018 9:12 PM SENIOR ORACLE DATABASE DEVELOPER 03/27/2018 9:21 PM SENIOR ORACLE DATABASE DEVELOPER us Davi Patrick MD LAB - CHEMISTRY ORDERABLES Fin al Result Performing Organization Address [facility] Co de Phone Number [address] [phone] from Last 3 Months or Most Recently Relevant to Health Maintenance Insurance [facility] Care Teams Locomotive Lubricating Systems Clerk Relationship Specialty Start Date End Date Alee Zhao MD [address] [place] [phone] PCP - General Family Medicine 03/25/18
--- OUTSIDE RECORDS SUMMARY | 2025-03-16 19:28 | XMS_ITS | Encounter Summary ---
Author Organization [facility] Address [address] [place] [address] Care Team Providers Care Sales Development Manager Name Role Phone Td Lopez MD Primary Care Provider + Angie Woodard MD Unavailable [phone] Vimal Woodruff MD Unavailable PastorAlannah MA Unavailable [phone] PastorAlannah fair MA Unavailable [phone] PastorAlannah fair MA Unavailable [phone] Eun Arana RN Unavailable Lakshmi Garcia LPN Unavailable [phone] Niki Burns MA Unavailable Encounter Details Date Type Department Care Team (Late st Contact Info) Description 12/21/2017 Documentation [id number] [place] [id number] Shannan Farfan, JOHN Social History Tobacco Use Types Packs/Day Years Used Date Smoking Tobacco: Every Day Sex and Gender Information Value Date Recorded Sex Assigned at Not on file Legal Sex 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 07/08/2021 07/14/2021 11/05/2021 3:05 AM C DT COVID: Suspected 05/20/2022 05/20/2022 05/20/2022 2:32 AM FOOTBALL PAD REPAIRER COVID: Suspected 09/20/2023 09/20/2023 09/20/2023 9:26 PM CDT COVID: Suspected 10/04/2023 10/04/2023 10/04/2023 3:55 PM CDT documented as of this encounter Care Teams Sales Development Manager Relationship Specialty Start Date End Date Td Lopez MD [facility] [address] PCP - General Family Medicine 11/09/20 Angie Woodard MD [address] [facility] [address] [place] [address] Consulting Physician Gastroenterology 07/17/21 Vimal Woodruff MD [address] [facility] [address] [place] [address] Consulting Physician Gastroenterology 02/10/22 Alannah Baumann MA [address] [place] [address] [employer] Care Tank Storage Supervisor 12/31/23 01/05/24 Alannah Baumann MA [address] [place] [address] [employer] Care Tank Storage Supervisor 06/29/24 06/30/24 Alannah Baumann MA [address] [place] [address] [address] [place] [address] [employer] Care Tank Storage Supervisor 08/03/24 08/03/24 Eun Arana RN [address] [place] [address] [address] [place] [address] Hand Molder Meat 08/17/24 08/25/24 Lakshmi Garcia LPN [address] [place] [address] [address] [place] [address] Hand Molder Meat 10/05/24 10/05/24 Niki Burns MA [address] [place] [address] [address] [place] [address] ACO Care Tank Storage Supervisor 10/18/24 10/19/24 documented as of this encounter
--- OUTSIDE RECORDS SUMMARY | 2025-03-16 19:28 | XMS_ITS | Clinical Summary ---
Author Organization [facility] Address [address] [place] [address] Care Team Providers Care Critical Systems Technician Name Role Phone Td Lopez MD Primary Care Provider + Angie Woodard MD Unavailable [phone] Vimal Woodruff MD Unavailable [phone] Allergies Active Allergy Reactions Criticality Noted Date [...] 03/25/2024 Assessment & Plan (03/25/2024 11:50 AM PUBLIC ADMINISTRATION TEACHER): - suspect just muscle strain - will check xray - offered PT but pt refused. Protein-calorie malnutrition, moderate Abdominal pain, generalized 09/19/2023 Assessment & Plan (09/25/2023 12:23 PM CDT): - improving - will give small amount of norco until pt heals from his procedure - f/u with GI Current use of [facility] anticoagulation 023 Assessment & Plan (09/25/2023 12:23 PM CDT): - stable - continue eliquis Assessment & Plan (03/20/2023 11:08 AM PUBLIC ADMINISTRATION TEACHER): - restart eliquis due to life long need for anticoagulation History of thrombosis 03/20/2023 Assessment & Plan (09/25/2023 12:22 PM CDT): - stable - continue eliquis Assessment & Plan (03/20/2023 11:08 AM PUBLIC ADMINISTRATION TEACHER): - restart eliquis due to life long [...] adequate oral intake. He has an outpatient metal flow coordinator in [place]. I recommended he follow-up [...] adequate oral intake. He has an outpatient metal flow coordinator in [place]. I recommended he follow-up [...] famotidine Assessment & Plan (03/20/2023 11:08 AM PUBLIC ADMINISTRATION TEACHER): - stable - continue current medication Renal [...] eval. Assessment & Plan (03/25/2024 11:49 AM PUBLIC ADMINISTRATION TEACHER): - ref to derm for eval Drug [...] adequate oral intake. He has an outpatient metal flow coordinator in [place]. I recommended he follow-up [...] department. Assessment & Plan (03/25/2024 11:49 AM PUBLIC ADMINISTRATION TEACHER): - poor control - continue hyosciamine, famotidine, zofran - ref to GI for continued treatment Assessment & Plan (03/20/2023 11:07 AM PUBLIC ADMINISTRATION TEACHER): - stable - continue current medication Duodenal [...] prn Assessment & Plan (07/15/2019 11:44 AM PUBLIC ADMINISTRATION TEACHER): - stable - continue bentyl and amitriptyline [...] medication Assessment & Plan (07/15/2019 11:44 AM PUBLIC ADMINISTRATION TEACHER): - stable - continue creon Annual physical [...] able Assessment & Plan (07/15/2019 11:46 AM PUBLIC ADMINISTRATION TEACHER): - encourage healthy diet, exercise - check [...] outpatient. Assessment & Plan (07/15/2019 11:37 AM PUBLIC ADMINISTRATION TEACHER): - encouraged pt to quit smoking Abdominal [...] adequate oral intake. He has an outpatient metal flow coordinator in [place]. I recommended he follow-up [...] GI Assessment & Plan (03/20/2023 11:07 AM PUBLIC ADMINISTRATION TEACHER): - stable - continue current medication per [...] 09/17/202209/08 Assessment & Plan (03/20/2023 11:08 AM PUBLIC ADMINISTRATION TEACHER): - stable off meds - will monitor [...] 09/25/2023 Assessment & Plan (03/26/2021 11:41 AM PUBLIC ADMINISTRATION TEACHER): - stable today - continue current medications [...] lexapro Assessment & Plan (07/15/2019 11:38 AM PUBLIC ADMINISTRATION TEACHER): - stable - continue current plan Gastroesophageal reflux dise ase without esophagitis 07/15/2019 03/18/2023 Overview (07/15/2019): - GERD managed by Dr Woodard - Pt on omeprazole and carafate for sx control Assessment & Plan (01/01/2021 12:09 PM CDT): - stable - continue current medication Assessment & Plan (02/07/2020 2:32 PM CDT): - stable - continue current medication Assessment & Plan (07/15/2019 11:38 AM PUBLIC ADMINISTRATION TEACHER): - stable - continue omeprazole and carafate Viral illness 07/08/2019 02/12/2021 Assessment & Plan (07/09/2019 9:12 AM PUBLIC ADMINISTRATION TEACHER): Medrol Dosepak as directed. Recommended Mucinex plain [...] (09/17/2018): Added automatically from request for surgery [id number] Assessment & Plan (02/12/2021 11:23 AM CDT): - encouraged pt to f/u with new GI - continue hyoscyamine Assessment & Plan (01/01/2021 12:10 PM CDT): - continue prn oxycodone for now - discussed need to wean off of this as this is not a viable exterminator solution - will ref to pain [...] medication Assessment & Plan (07/15/2019 11:36 AM PUBLIC ADMINISTRATION TEACHER): - controlled - continue current plan Chronic [...] Department Care Team Description 03/13/2025 10:28 AM PUBLIC ADMINISTRATION TEACHER - 03/13/2025 1:48 PM PUBLIC ADMINISTRATION TEACHER Emergency [facility] Emergency Department [address] [place] [address] Chronic abdominal pain (Primary Dx) Discharge Disposition: Discharge to home or self care 03/09/2025 3:00 PM CDT - 03/09/2025 7:08 PM CDT Emergency [facility] Emergency Department [address] [address] Abdiel Valverde MD Duodenitis (Primary Dx) Discharge Disposition: Discharge to home or self care 02/13/2025 Telephone [facility] Primary [facility] [address] [facility] [address] [place] [address] Td Lopez MD 02/10/2025 2:18 AM CDT - 02/10/2025 6:19 AM CDT Emergency [facility] Emergency Department [address] [place] [address] Kingsley Villanueva DO Chronic abdominal pain (Primary Dx) Discharge Disposition: Discharge to home or self care 02/07/2025 4:34 AM CDT - 02/07/2025 2:36 PM CDT Emergency [facility] Emergency Department [address] [place] [address] Yanira Strickland MD Dehaan, Jose Francisco Santos MD Abdominal pain (Primary Dx); Chronic abdominal pain [R10.9, G89.29] Discharge Disposition: Discharge to home or self care 02/06/2025 6:30 AM CDT - 02/06/2025 10:40 AM CDT [address] [address] Bernard Bruce MD Abdominal pain (Primary Dx) Discharge Disposition: Discharge to home or self care 01/28/2025 4:15 PM CDT - 01/28/2025 6:49 PM CDT Emergency [facility] Emergency Department [address] [place] [address] Chronic abdominal pain (Primary Dx) Discharge Disposition: Discharge to home or self care 01/22/2025 7:28 AM CDT - 01/22/2025 11:05 AM T [address] [address] Freddy Yao DO Chronic abdominal pain (Primary [...] Recorded In the past 12 months has [employer], gas, oil, or water [employer] threatened to shut off services in your [...] often do you attend chur ch or restoration services? Never 12/01/2024 Do you belong to any clubs o r organizations such as jainism groups, unions, fraternal or athletic groups, or [...] slept in a mcfp (including now)? No 09/21/2023 PHQ-9 Answer Date [...] any time in the past 12 m [facility], were you homeless or living in a mcfp (including now)? No 12/01/2024 Personal Safety Answer Date Recorded Have you ever been in or are you currently in a harmful physical or emotional relationship or is someone making you feel afraid or unsafe? Denies 03/13/2025 Sex and Gender Information Value Date Recorded Sex Assigned at Not on file Legal Sex Male 3:38 AM PUBLIC ADMINISTRATION TEACHER Gender Identity Not on file Sexual Orientation Not on file Last Filed Vital Signs Vital Sign Reading Time Taken Comments Blood Pressure 116/78 03/13/2025 12:00 PM PUBLIC ADMINISTRATION TEACHER Pulse 100 03/13/2025 12:00 PM PUBLIC ADMINISTRATION TEACHER Temperature 36.8 C (98.3 F) 03/13/2025 10:02 AM PUBLIC ADMINISTRATION TEACHER Respiratory Rate 20 03/13/2025 12:00 PM PUBLIC ADMINISTRATION TEACHER Oxygen Saturation 96% 03/13/2025 12:00 PM PUBLIC ADMINISTRATION TEACHER Inhaled Oxygen Concentration - - Weight 70 kg (154 lb 5.2 oz) 03/13/2025 10:02 AM PUBLIC ADMINISTRATION TEACHER Height 177.8 cm (5' 10) 03/13/2025 10:02 AM PUBLIC ADMINISTRATION TEACHER Body Mass Index 22.14 03/13/2025 10:02 AM PUBLIC ADMINISTRATION TEACHER Plan of Treatment Health Maintenance Due [...] Vaccines Discontinued Medical Devices Explanted Type Area Screen Making Technician Device Identifier Shelf Expiration Date Model / Serial / Lot [employer] 6572 Connell Flexi-Stent 7fr 5cm Small Pigtail Flexible .035in Stent - [id number] Implanted:Qty: 1 on 09/18/2018 by Vimal Woodruff MD at [facility] Explanted:Qty: 1 on 09/20/2018 at [facility] Stent N/A: Pancreas [employer] 06/10/2023 [id number] / / [id number] Conmed Gina [id number] [place] Viabil 10mm 8.5fr 6cm 200cm Fully Covered Self Expand Pull - [id number] - [id number] Implanted:Qty: 1 on 09/18/2018 by Vimal Woodruff MD at [facility] Explanted:Qty: 1 on 09/20/2018 at [facility] Stent N/A: Bile Duct Conmed Gina 06/29/2021 [id number] / [id number] / [employer] Connell Flexi-Stent 7fr 9cm Small Pigtail Flexible .035in Stent 6575 - [id number] Implanted:Qty: 1 on 02/07/2022 by Vimal Woodruff MD at [facility] Explanted:Qty: 1 on 02/10/2022 by Vimal Woodruff MD at [facility] Stent N/A: Pancreas [employer] 09/07/2026 [id number] / / [id number] [employer] Gina Wallflex 10mm X 60mm Fully Covered Biliary [id number] - [id number] Implanted:Qty: 1 on 02/07/2022 by Vimal Woodruff MD at [facility] Explanted:Qty: 1 on 02/10/2022 by Vimal Woodruff MD at [facility] Stent N/A: Bile Duct [employer] Gina 11/04/2023 [id number] / / [id number] [employer] Connell Flexi-Stent 7fr 9cm Small Pigtail Flexible .035in Stent 6575 - [id number] Implanted:Qty: 1 on 09/21/2023 by Vimal Woodruff MD at [facility] Explanted:Qty: 1 on 09/23/2023 by Vimal Woodruff MD at [facility] Stent N/A: Pancreas [employer] 03/11/2028 [id number] / / [id number] Description:Not present at b eginning of case. Self migrated out [employer] Gina Wallflex 10mm X 60mm Fully Covered Biliary [id number] - [id number] Implanted:Qty: 1 on 09/21/2023 by Vimal Woodruff MD at [facility] Explanted:Qty: 1 on 09/23/2023 by Vimal Woodruff MD at [facility] Stent N/A: Bile Duct [employer] Gina 08/02/2025 [id number] / / [id number] Procedures Procedure Name Priority Date/Time Associated Diagnosis Comments EGFR STAT 03/13/2025 10:18 AM PUBLIC ADMINISTRATION TEACHER DIFFERENTIAL AUTO STAT 03/13/2025 10: 18 AM PUBLIC ADMINISTRATION TEACHER LIPASE STAT 03/13/2025 10:18 AM PUBLIC ADMINISTRATION TEACHER COMPREHENSIVE METABOLIC PANEL STAT 03/13/2025 10:18 AM PUBLIC ADMINISTRATION TEACHER CBC WITH AUTO DIFFERENTIAL STAT 03/13/2025 10:18 AM PUBLIC ADMINISTRATION TEACHER URINALYSIS AND REFLEX TO MICROSCOPIC AND CULTURE STAT 03/13/2025 10:18 AM PUBLIC ADMINISTRATION TEACHER URINALYSIS, MICROSCOPIC ONLY STAT 03/09/2025 4:44 PM [...] Months Results * eGFR (03/13/2025 10:18 AM PUBLIC ADMINISTRATION TEACHER) eGFR >90 >=60 mL/min/1. 73 m2 [...] was last reviewed 2021. Testing performed by: [address] [address] Blood 03/13/2025 10:1 8 AM PUBLIC ADMINISTRATION TEACHER 03/13/2025 10:21 AM PUBLIC ADMINISTRATION TEACHER us Bernard Bruce MD LAB BLOOD ORDERABLES Final Resul t [place] [address] [facility] Department [place] [address] * (ABNORMAL) Differential, auto (03/13/2025 10:18 AM PUBLIC ADMINISTRATION TEACHER) Neutrophil abs 4.72 1.50 - 6.50 K/cumm Comment:Testing performed by : [address] [address] Imm gran abs 0.01 0.00 - 0.10 K/cumm NEEL Comment:Testing performed by : [address] [address] Lymphocyte abs 2.24 0.80 - 3.30 K/cumm NEEL Comment:Testing performed by : [address] [address] Monocyte abs 1.05(H) 0.20 - 0.80 K/cumm NEEL Comment:Testing performed by : [address] [address] Eosinophil abs 0.14 0.00 - 0.50 K/cumm NEEL Comment:Testing performed by : [address] [address] Basophil abs 0.04 0.00 - 0.10 K/cumm NEEL Comment:Testing performed by : [address] [address] Neutrophil pct 57.6 % [facility] Comment: Interpretive Data Percent cell count reference ranges are not reported, since discordance with absolute values may lead to misinterpretation of CBC data. Current Interpretive Data was last revised on 2017. Testing performed by: [address] [address] Imm gran pct 0.1 % [facility] Comment: Interpretive Data Percent cell count reference ranges are not reported, since discordance with absolute values may lead to misinterpretation of CBC data. Current Interpretive Data was last revised on 2017. Testing performed by: [address] [address] Lymphocyte pct 27.3 % [facility] Comment: Interpretive Data Percent cell count reference ranges are not reported, since discordance with absolute values may lead to misinterpretation of CBC data. Current Interpretive Data was last revised on 2017. Testing performed by: [address] [address] Monocyte pct 12.8 % [facility] Comment: Interpretive Data Percent cell count reference ranges are not reported, since discordance with absolute values may lead to misinterpretation of CBC data. Current Interpretive Data was last revised on 2017. Testing performed by: [address] [address] Eosinophil pct 1.7 % [facility] Comment: Interpretive Data Percent cell count reference ranges are not reported, since discordance with absolute values may lead to misinterpretation of CBC data. Current Interpretive Data was last revised on 2017. Testing performed by: [address] [address] Basophil pct 0.5 % [facility] Comment: Interpretive Data Percent cell count reference ranges are not reported, since discordance with absolute values may lead to misinterpretation of CBC data. Current Interpretive Data was last revised on 2017. Testing performed by: [address] [address] Blood 03/13/2025 10:1 8 AM PUBLIC ADMINISTRATION TEACHER 03/13/2025 10:21 AM PUBLIC ADMINISTRATION TEACHER us Bernard Bruce MD LAB BLOOD ORDERABLES Final Resul t NEEL [address] [facility] Department [place] [address] * (ABNORMAL) Urinalysis reflex to microscopic and culture Urine (03/13/2025 10:18 AM PUBLIC ADMINISTRATION TEACHER) Color, ur Yellow Yellow Comment:Testing performed by : [address] [address] Clarity, ur Cloudy(A) Clear NEEL Comment:Testing performed by : [address] [address] Specific gravity, ur 1.015 1.003 - 1.030 NEEL Comment:Testing performed by : [address] [address] pH, urine 7.0 NEEL Comment: Interpretive Data U rine pH is affected by diet, medications, systemic acid-base disturbances, and renal tubular function. pH may affect urinary stone formation. For example, urine pH below 6.0 may help reduce the tendency for calcium phosphate stones and pH greater than 6.0 may reduce the tendency for uric acid stone formation. Source: [facility] Current Interpretive Data was last revised on 2017 Testing performed by: [address] [address] Protein, ur ql Negative Negative NEEL Comment:Testing performed by : [address] [address] Glucose, ur ql Negative Negative NEEL Comment:Testing performed by : [address] [address] Ketones, ur Negative Negative NEEL Comment:Testing performed by : [address] [address] Bilirubin, ur Negative Negative NEEL SMITH Comment:Testing performed by : [address] [address] Blood, ur Negative Negative NEEL SMITH Comment:Testing performed by : [address] [address] Urobilinogen, ur <2.0 <2.0 mg/dL NEEL SMITH Comment:Testing performed by : [address], [place]., [address] Nitrite, ur Negative Negative NEEL SMITH Comment:Testing performed by : [address], [place]., [address] Leukocyte esterase, ur Negative Negative NEEL Comment:Testing performed by : [address] [address] UA reflex comment Reflex conditions for microscopic UA and culture not met. NEEL SMITH Comment:Testing performed by : [address], [place]., [address] Urine 03/13/2025 10:1 8 AM PUBLIC ADMINISTRATION TEACHER 03/13/2025 10:21 AM PUBLIC ADMINISTRATION TEACHER us Bernard Bruce MD LAB MICROBIOLOGY - GENERAL ORDER CLAUDIO Final Result NEEL [address] [facility] Department [place] [address] * CBC with auto differential (03/13/2025 10:18 AM PUBLIC ADMINISTRATION TEACHER) WBC 8.20 3.80 - 9.90 K/cumm Comment:Testing performed by : [address] [address] Hgb 14.2 13.0 - 17.5 g/dL NEEL SMITH Comment:Testing performed by : [address] [address] Hct 41.2 38.9 - 50.3 % NEEL SMITH Comment:Testing performed by : [address] [address] Plt 275 150 - 400 K/cumm NEEL SMITH Comment:Testing performed by : [address] [address] MPV 9.8 9.1 - 12.3 fL NEEL SMITH Comment:Testing performed by : [address] [address] RBC 4.74 4.30 - 5.80 M/cumm NEEL SMITH Comment:Testing performed by : [address] [address] MCV 86.9 81.3 - 96.4 fL NEEL Comment:Testing performed by : [address] [address] MCH 30.0 27.1 - 33.3 pg NEEL Comment:Testing performed by : [address] [address] MCHC 34.5 32.3 - 35.7 g/dL NEEL Comment:Testing performed by : [address] [address] RDW CV 14.9 11.1 - 14.9 % NEEL Comment:Testing performed by : [address], [address] RDW SD 47.5 35.7 - 48.1 fL NEEL Comment:Testing performed by : [address] [address] NRBC abs 0.00 0.00 - 0.01 K/cumm NEEL Comment:Testing performed by : [address] [address] Blood Venous blood specimen / Unknown 03/13/2025 10:18 AM PUBLIC ADMINISTRATION TEACHER 03/13/2025 10:21 AM PUBLIC ADMINISTRATION TEACHER us Bernard Bruce MD LAB BLOOD ORDERABLES Final Resul t [facility] [address] [facility] Department [place] [address] * Lipase (03/13/2025 10:18 AM PUBLIC ADMINISTRATION TEACHER) Lipase 39 10 - 99 Units/L Comment:Testing performed by : [address], [address] Blood Venous blood specimen / Unknown 03/13/2025 10:18 AM PUBLIC ADMINISTRATION TEACHER 03/13/2025 10:21 AM PUBLIC ADMINISTRATION TEACHER us Bernard Bruec MD LAB BLOOD ORDERABLES Final Resul t [facility] [address] [facility] Department [place] [address] * Comprehensive metabolic panel (03/13/2025 10:18 AM PUBLIC ADMINISTRATION TEACHER) Sodium 140 135 - 145 mmol/L Comment:Testing performed by : [address] [address] Potassium, pl 3.9 3.3 - 4.9 mmol/L NEEL Comment:Testing performed by : [address] [address] Chloride 107 97 - 110 mmol/L NEEL Comment:Testing performed by : [address] [address] CO2 22 22 - 32 mmol/L NEEL Comment:Testing performed by : [address] [address] Anion gap 11 2 - 15 mmol/L NEEL Comment:Testing performed by : [address] [address] BUN 7 6 - 25 mg/dL NEEL Comment:Testing performed by : [address] [address] Creatinine 1.00 0.80 - 1.30 mg/dL NEEL Comment:Testing performed by : [address] [address] Glucose 124 70 - 199 mg/dL NEEL [...] was last revised 2022. Testing performed by: [address] [address] Calcium 9.2 8.5 - 10.3 mg/dL NEEL Comment:Testing performed by : [address] [address] Bilirubin, total 0.4 0.1 - 1.2 mg/dL NEEL Comment:Testing performed by : [address] [address] Protein, pl 6.8 6.5 - 8.5 g/dL NEEL Comment:Testing performed by : [address] [address] Albumin 4.5 3.5 - 5.0 g/dL NEEL Comment:Testing performed by : [address] [address] Alk phos 81 40 - 130 Units/L NEEL Comment:Testing performed by : [address] [address] ALT 13 7 - 55 Units/L NEEL Comment:Testing performed by : [address] [address] AST 16 10 - 50 Units/L NEEL Comment:Testing performed by : [address] [address] Blood 03/13/2025 10:1 8 AM PUBLIC ADMINISTRATION TEACHER 03/13/2025 10:21 AM PUBLIC ADMINISTRATION TEACHER us Bernard Bruce MD LAB BLOOD ORDERABLES Final Resul t NEEL [address] [facility] Department [place] [address] * Troponin T high-sensitivity 2-hour [...] BLOOD ORDERABLES Final Resul t NEEL GUZMÁN [address] [facility] Department of Laboratories [place], [place] [id number] * (ABNORMAL) Urinalysis reflex to microscopic and [...] tendency for uric acid stone formation. Source: [facility] Current Interpretive Data was [...] ORDER CLAUDIO Final Result Performing Organization Address [facility] Co de Phone Number NEEL TRACYWCH [address] [employer] [place] [address] * (ABNORMAL) Urinalysis, microscopic only (03/09/2025 4:44 PM CDT) WBC, ur 0-5 0 - 5 /HPF RBC, ur 3-5(A) 0 - 2 /HPF [facility] Mucous, ur Present(A) [facility] Culture Reflex Comment Reflex conditions for urine culture (WBC >10) not met. [facility] Urine 03/09/2025 4:44 PM CDT 03/09/2025 4:47 PM CDT us Abdiel Valverde MD LAB URINE ORDERABLES Final Resul t Performing Organization Address [facility] Phone Number NEEL TRACYWCH [address] [employer] Department [place] [address] * XR Chest Pa Lateral 2 Vw [...] Community Screening-Kassi Eligible (03/09/2025 3:02 PM CDT) [facility] Rapid HIV, POC Negative Negative Lot Number [id number] QC Control Line Acceptable Blood 03/09/2025 3:02 PM CDT us Abdiel Valverde MD POINT OF CARE TEST ORDERABLES Fi nal Result * Troponin T high-sensitivity series (baseline, 2hr, 4hr, 6hr) (03/09/2025 2:59 PM CDT) Pathologist [facility] Trop T hs 6 <=22 ng/L Comment: Interpretive Data For further hscTnT resources including the diagnostic algorithm and an aid in interpretation, copy and paste this link: [email or web address].testcatalog.org/show/hsTrop Current Interpretive Data last revised 2020. Blood 03/09/2025 2:59 PM CDT 03/09/2025 3:02 PM CDT us Abdiel Valverde MD LAB BLOOD ORDERABLES Final Resul t Performing Organization Address City/[facility]/ZIP Co de Phone Number [facility] [address] [facility]. [place] [address] * eGFR (03/09/2025 2:59 PM CDT) [facility] eGFR >90 >=60 mL/min/1. 73 [...] MD LAB BLOOD ORDERABLES Fin al Result [facility] [address] [facility]. Department of Laboratories [place], [place] [id number] * (ABNORMAL) Differential, auto (03/09/2025 2:59 PM CDT) Pathologist [facility] Neutrophil abs 11.92(H) 1.50 - 6.50 K/cumm Imm gran abs 0.06 0.00 - 0.10 K/cumm [facility] Lymphocyte abs 1.73 0.80 - 3.30 K/cumm [facility] Monocyte abs 1.23(H) 0.20 - 0.80 K/cumm [facility] Eosinophil abs 0.06 0.00 - 0.50 K/cumm [facility] Basophil abs 0.05 0.00 - 0.10 K/cumm [facility] Neutrophil pct 79.2 % [facility] Comment: Interpretive Data Percent cell count reference [...] LAB BLOOD ORDERABLES Final Resul t [facility] [address] [facility] Department [place] [address] * (ABNORMAL) CBC with auto differential (03/09/2025 2:59 PM CDT) WBC 15.05(H) 3.80 - 9.90 K/cumm Hgb 15.5 13.0 - 17.5 g/dL NEEL GUZMÁN Hct 45.2 38.9 - 50.3 % NEEL GUZMÁN Plt 299 150 - 400 K/cumm NEEL GUZMÁN MPV 10.0 9.1 - 12.3 fL [facility] RBC 5.18 4.30 - 5.80 M/cumm [facility] MCV 87.3 81.3 - 96.4 fL [facility] MCH 29.9 27.1 - 33.3 pg [facility] MCHC 34.3 32.3 - 35.7 g/dL [facility] RDW CV 14.5 11.1 - 14.9 % [facility] RDW SD 46.7 35.7 - 48.1 fL [facility] NRBC abs 0.00 0.00 - 0.01 K/cumm [facility] Blood Venous blood specimen / Unknown 03/09/2025 2:59 PM CDT 03/09/2025 3:02 PM CDT us Abdiel Valverde MD LAB BLOOD ORDERABLES Final Resul t Performing Organization Address [facility] de Phone Number [facility] [address] [employer] [place] [address] * Lipase (03/09/2025 2:59 PM CDT) Pathologist [facility] Lipase 81 10 - 99 Units/L Blood Venous blood specimen / Unknown 03/09/2025 2:59 PM CDT 03/09/2025 3:02 PM CDT us Abdiel Valverde MD LAB BLOOD ORDERABLES Final Resul t Performing Organization Address [facility] de Phone Number [facility] [address] [employer] [place] [address] * (ABNORMAL) Comprehensive metabolic panel (03/09/2025 2:59 PM CDT) Pathologist [facility] Sodium 141 135 - 145 mmol/L Potassium, pl 4.1 3.3 - 4.9 mmol/L [facility] Chloride 105 97 - 110 mmol/L [facility] CO2 21(L) 22 - 32 mmol/L [facility] An[facility] gap 15 2 - 15 mmol/L [facility] BUN 10 6 - 25 mg/dL [facility] Creatinine 0.88 0.80 - 1.30 mg/dL CERNER [...] LAB BLOOD ORDERABLES Final Resul t [facility] [address] [facility] Department [place] [address] * eGFR (02/10/2025 2:35 AM CDT) eGFR [...] was last reviewed 2021. Testing performed by: [address] [address] Blood 02/10/2025 2:35 AM CDT 02/10/2025 2:38 AM CDT [employer] LAB BLOOD ORDERABLES Final Res ult Performing Organization Address [facility] de Phone Number [address] [place] [employer] [place] [address] * Lipase (02/10/2025 2:35 AM CDT) Lipase 37 10 - 99 Units/L Comment:Testing performed by : [address] [address] Blood 02/10/2025 2:35 AM CDT 02/10/2025 2:38 AM CDT [employer] LAB BLOOD ORDERABLES Final Res ult Performing Organization Address [facility] de Phone Number [address] [place] [employer] [place] [address] * Ethanol (02/10/2025 2:35 AM CDT) Ethanol <10 <=10 mg/dL Comment: Interpretive Data Legal limit of intoxication > or = 80 mg/dL Levels > or = 400 mg/dL are potentially TOXIC. Current interpretive data was last revised on 2018. Testing performed by: [address] [address] Blood 02/10/2025 2:35 AM CDT 02/10/2025 2:38 AM CDT us Kingsley Villanueva DO LAB BLOOD ORDERABLES Final Res ult NEEL [address] [facility] Department [place] [address] * Comprehensive metabolic panel (02/10/2025 2:35 AM CDT) Sodium 140 135 - 145 mmol/L Comment:Testing performed by : [address] [address] Potassium, pl 3.7 3.3 - 4.9 mmol/L NEEL Comment:Testing performed by : [address] [address] Chloride 103 97 - 110 mmol/L NEEL Comment:Testing performed by : [address] [address] CO2 25 22 - 32 mmol/L NEEL Comment:Testing performed by : [address] [address] Anion gap 12 2 - 15 mmol/L NEEL Comment:Testing performed by : [address] [address] BUN 9 6 - 25 mg/dL NEEL Comment:Testing performed by : [address] [address] Creatinine 1.01 0.80 - 1.30 mg/dL NEEL Comment:Testing performed by : [address] [address] Glucose 104 70 - 199 mg/dL NEEL [...] was last revised 2022. Testing performed by: [address] [address] Calcium 9.8 8.5 - 10.3 mg/dL NEEL Comment:Testing performed by : [address] [address] Bilirubin, total 0.4 0.1 - 1.2 mg/dL NEEL Comment:Testing performed by : [address] [address] Protein, pl 6.5 6.5 - 8.5 g/dL NEEL Comment:Testing performed by : [address] [address] Albumin 4.2 3.5 - 5.0 g/dL NEEL Comment:Testing performed by : [address] [address] Alk phos 72 40 - 130 Units/L NEEL Comment:Testing performed by : [address] [address] ALT 16 7 - 55 Units/L NEEL Comment:Testing performed by : [address] [address] AST 18 10 - 50 Units/L NEEL Comment:Testing performed by : [address] [address] Blood 02/10/2025 2:35 AM CDT 02/10/2025 2:38 AM CDT us Kingsley Villanueva DO LAB BLOOD ORDERABLES Final Res ult NEEL [address] [facility] Department [place] [address] * (ABNORMAL) Differential, auto (02/10/2025 1:05 AM CDT) Neutrophil abs 5.93 1.50 - 6.50 K/cumm Comment:Testing performed by : [address] [address] Imm gran abs 0.04 0.00 - 0.10 K/cumm [facility] Comment:Testing performed by : [address] [address] Lymphocyte abs 3.01 0.80 - 3.30 K/cumm [facility] Comment:Testing performed by : [address], [place]., [address] Monocyte abs 1.36(H) 0.20 - 0.80 K/cumm [facility] Comment:Testing performed by : [address], [place]., [address] Eosinophil abs 0.17 0.00 - 0.50 K/cumm [facility] Comment:Testing performed by : [address] [address] Basophil abs 0.05 0.00 - 0.10 K/cumm [facility] Comment:Testing performed by : [address] [address] Neutrophil pct 56.1 % [facility] Comment: Interpretive Data Percent cell count reference ranges are not reported, since discordance with absolute values may lead to misinterpretation of CBC data. Current Interpretive Data was last revised on 2017. Testing performed by: [address] [address] Imm gran pct 0.4 % [facility] Comment: Interpretive Data Percent cell count reference ranges are not reported, since discordance with absolute values may lead to misinterpretation of CBC data. Current Interpretive Data was last revised on 2017. Testing performed by: [address] [address] Lymphocyte pct 28.5 % [facility] Comment: Interpretive Data Percent cell count reference ranges are not reported, since discordance with absolute values may lead to misinterpretation of CBC data. Current Interpretive Data was last revised on 2017. Testing performed by: [address] [address] Monocyte pct 12.9 % [facility] Comment: Interpretive Data Percent cell count reference ranges are not reported, since discordance with absolute values may lead to misinterpretation of CBC data. Current Interpretive Data was last revised on 2017. Testing performed by: [address] [address] Eosinophil pct 1.6 % NEEL SMITH Comment: Interpretive Data Percent cell count reference ranges are not reported, since discordance with absolute values may lead to misinterpretation of CBC data. Current Interpretive Data was last revised on 2017. Testing performed by: [address] [address] Basophil pct 0.5 % NEEL SMITH Comment: Interpretive Data Percent cell count reference ranges are not reported, since discordance with absolute values may lead to misinterpretation of CBC data. Current Interpretive Data was last revised on 2017. Testing performed by: [address] [address] Blood 02/10/2025 1:05 AM CDT 02/10/2025 1:14 AM CDT us Kingsley Villanueva DO LAB BLOOD ORDERABLES Final Res ult NEEL [facility] Department [place] [address] * (ABNORMAL) CBC with auto differential (02/10/2025 1:05 AM CDT) WBC 10.56(H) 3.80 - 9.90 K/cumm Comment:Testing performed by : [address] [address] Hgb 13.8 13.0 - 17.5 g/dL NEEL SMITH Comment:Testing performed by : [address] [address] Hct 40.2 38.9 - 50.3 % NEEL SMITH Comment:Testing performed by : [address] [address] Plt 281 150 - 400 K/cumm NEEL SMITH Comment:Testing performed by : [address] [address] MPV 10.1 9.1 - 12.3 fL NEEL SMITH Comment:Testing performed by : [address] [address] RBC 4.59 4.30 - 5.80 M/cumm NEEL SMITH Comment:Testing performed by : [address] [address] MCV 87.6 81.3 - 96.4 fL NEEL SMITH Comment:Testing performed by : [address], [address] MCH 30.1 27.1 - 33.3 pg NEEL Comment:Testing performed by : [address] [address] MCHC 34.3 32.3 - 35.7 g/dL NEEL Comment:Testing performed by : [address] [address] RDW CV 15.4(H) 11.1 - 14.9 % NEEL Comment:Testing performed by : [address], [address] RDW SD 49.1(H) 35.7 - 48.1 fL NEEL Comment:Testing performed by : [address] [address] NRBC abs 0.00 0.00 - 0.01 K/cumm NEEL Comment:Testing performed by : [address] [address] Blood Venous blood specimen / Unknown 02/10/2025 1:05 AM CDT 02/10/2025 1:14 AM CDT us Kingsley Villanueva DO LAB BLOOD ORDERABLES Final Res ult NEEL [address] [facility] Department [place] [address] * eGFR (02/07/2025 4:42 AM [...] Strickland MD LAB BLOOD ORDERABLES Final Result [facility] [address] Department [place] [address] * (ABNORMAL) Differential, auto (02/07/2025 4:42 AM CDT) Neutrophil abs 8.27(H) 1.50 - 6.50 K/cumm Imm gran abs 0.04 0.00 - 0.10 K/cumm [facility] Lymphocyte abs 2.28 0.80 - 3.30 K/cumm [facility] Monocyte abs 1.16(H) 0.20 - 0.80 K/cumm [facility] Eosinophil abs 0.15 0.00 - 0.50 K/cumm [facility] Basophil abs 0.07 0.00 - 0.10 K/cumm [facility] Neutrophil pct 69.1 % [facility] Comment: Interpretive Data Percent cell count reference ranges are not reported, since discordance with absolute values may lead to misinterpretation of CBC data. Current Interpretive Data was last revised on 2017. Imm gran pct 0.3 % [facility] Comment: Interpretive Data Percent cell count reference ranges are not reported, since discordance with absolute values may lead to misinterpretation of CBC data. Current Interpretive Data was last revised on 2017. Lymphocyte pct 19.0 % [facility] Comment: Interpretive Data Percent cell count reference ranges are not reported, since discordance with absolute values may lead to misinterpretation of CBC data. Current Interpretive Data was last revised on 2017. Monocyte pct 9.7 % [facility] Comment: Interpretive Data Percent cell count reference ranges are not reported, since discordance with absolute values may lead to misinterpretation of CBC data. Current Interpretive Data was last revised on 2017. Eosinophil pct 1.3 % [facility] Comment: Interpretive Data Percent cell count reference ranges are not reported, since discordance with absolute values may lead to misinterpretation of CBC data. Current Interpretive Data was last revised on 2017. Basophil pct 0.6 % [facility] Comment: Interpretive Data Percent cell count reference ranges are not reported, since discordance with absolute values may lead to misinterpretation of CBC data. Current Interpretive Data was last revised on 2017. Blood 02/07/2025 4:42 AM CDT 02/07/2025 4:51 AM CDT Yanira Strickland MD LAB BLOOD ORDERABLES Final Result [facility] [address] Department [place] [address] * (ABNORMAL) CBC with auto differential (02/07/2025 4:42 AM CDT) WBC 11.97(H) 3.80 - 9.90 K/cumm Hgb 14.8 13.0 - 17.5 g/dL [facility] Hct 43.2 38.9 - 50.3 % [facility] Plt 284 150 - 400 K/cumm [facility] MPV 9.8 9.1 - 12.3 fL [facility] RBC 4.81 4.30 - 5.80 M/cumm [facility] MCV 89.8 81.3 - 96.4 fL [facility] MCH 30.8 27.1 - 33.3 pg [facility] MCHC 34.3 32.3 - 35.7 g/dL [facility] RDW CV 14.9 11.1 - 14.9 % [facility] RDW SD 49.8(H) 35.7 - 48.1 fL [facility] NRBC abs 0.00 0.00 - 0.01 K/cumm [facility] Blood Venous blood specimen / Unknown 02/07/2025 4:42 AM CDT 02/07/2025 4:51 AM CDT Yanira Strickland MD LAB BLOOD ORDERABLES Final Result [facility] [address] Department of [employer] [place], [place] [id number] * (ABNORMAL) Lipase (02/07/2025 4:42 AM CDT) Pathologist [facility] Lipase 136(H) 10 - 99 Units/L Blood Venous blood specimen / Unknown 02/07/2025 4:42 AM CDT 02/07/2025 4:51 AM CDT Yanira Strickland MD LAB BLOOD ORDERABLES Final Result Performing Organization Address City/[facility]/ZIP Co de Phone Number [facility] [address] [place] [address] * (ABNORMAL) Comprehensive metabolic panel (02/07/2025 4:42 AM CDT) Pathologist [facility] Sodium 140 135 - 145 mmol/L Potassium, pl 4.2 3.3 - 4.9 mmol/L [facility] Chloride 105 97 - 110 mmol/L [facility] CO2 20(L) 22 - 32 mmol/L [facility] Anion gap 15 2 - 15 mmol/L [facility] BUN 8 6 - 25 mg/dL [facility] Creatinine 0.89 0.80 - 1.30 mg/dL [facility] Glucose 103 70 - 199 mg/dL [facility] Comment: Interpretive Data Fasting glucose >/= 126 [...] 2022. Calcium 9.1 8.5 - 10.3 mg/dL [facility] Bilirubin, total 0.5 0.1 - 1.2 mg/dL [facility] Protein, pl 6.7 6.5 - 8.5 g/dL [facility] Albumin 4.1 3.5 - 5.0 g/dL [facility] Alk phos 73 40 - 130 Units/L [facility] ALT 14 7 - 55 Units/L [facility] AST 22 10 - 50 Units/L [facility] Comment:Slightly Hemolyzed S pecimen Blood 02/07/2025 4:42 AM CDT 02/07/2025 4:51 AM CDT Yanira Strickland MD LAB BLOOD ORDERABLES Final Result [facility] [address] Department [place] [address] * eGFR (02/06/2025 4:23 AM CDT) eGFR [...] 02/06/2025 4:25 AM CDT us Odilia Johnston CELLULAR PHONE REPAIRER LAB BLOOD ORDERABLES Fin al Result [place] [address] [facility] Department [place] [address] * (ABNORMAL) Differential, auto (02/06/2025 4:23 AM CDT) Neutrophil abs 15.47(H) 1.50 - 6.50 K/cumm Imm gran abs 0.09 0.00 - 0.10 K/cumm [facility] Lymphocyte abs 1.21 0.80 - 3.30 K/cumm [facility] Monocyte abs 1.23(H) 0.20 - 0.80 K/cumm [facility] Eosinophil abs 0.08 0.00 - 0.50 K/cumm [facility] Basophil abs 0.05 0.00 - 0.10 K/cumm [facility] Neutrophil pct 85.3 % [facility] Comment: Interpretive Data Percent cell count reference ranges are not reported, since discordance with absolute values may lead to misinterpretation of CBC data. Current Interpretive Data was last revised on 2017. Imm gran pct 0.5 % [facility] Comment: Interpretive Data Percent cell count reference ranges are not reported, since discordance with absolute values may lead to misinterpretation of CBC data. Current Interpretive Data was last revised on 2017. Lymphocyte pct 6.7 % [facility] Comment: Interpretive Data Percent cell count reference ranges are not reported, since discordance with absolute values may lead to misinterpretation of CBC data. Current Interpretive Data was last revised on 2017. Monocyte pct 6.8 % [facility] Comment: Interpretive Data Percent cell count reference ranges are not reported, since discordance with absolute values may lead to misinterpretation of CBC data. Current Interpretive Data was last revised on 2017. Eosinophil pct 0.4 % [facility] Comment: Interpretive Data Percent cell count reference ranges are not reported, since discordance with absolute values may lead to misinterpretation of CBC data. Current Interpretive Data was last revised on 2017. Basophil pct 0.3 % [facility] Comment: Interpretive Data Percent cell count reference ranges are not reported, since discordance with absolute values may lead to misinterpretation of CBC data. Current Interpretive Data was last revised on 2017. Blood 02/06/2025 4:23 AM CDT 02/06/2025 4:25 AM CDT Odilia Johnston CELLULAR PHONE REPAIRER LAB BLOOD ORDERABLES Fin al Result [place] [address] [facility] Department of Laboratories [place], [place] [id number] * (ABNORMAL) CBC with auto differential (02/06/2025 4:23 AM CDT) WBC 18.13(H) 3.80 - 9.90 K/cumm Hgb 14.4 13.0 - 17.5 g/dL [facility] Hct 42.6 38.9 - 50.3 % [facility] Plt 274 150 - 400 K/cumm [facility] MPV 10.0 9.1 - 12.3 fL [facility] RBC 4.77 4.30 - 5.80 M/cumm [facility] MCV 89.3 81.3 - 96.4 fL [facility] MCH 30.2 27.1 - 33.3 pg [facility] MCHC 33.8 32.3 - 35.7 g/dL [facility] RDW CV 14.8 11.1 - 14.9 % [facility] RDW SD 48.6(H) 35.7 - 48.1 fL [facility] NRBC abs 0.00 0.00 - 0.01 K/cumm [facility] Blood 02/06/2025 4:23 AM CDT 02/06/2025 4:25 AM CDT Odilia Johnston CELLULAR PHONE REPAIRER LAB BLOOD ORDERABLES Fin al Result Performing Organization Address [facility] de Phone Number NEEL [address] [address] * Lipase (02/06/2025 4:23 AM CDT) Pathologist [facility] Lipase 56 10 - 99 Units/L Blood 02/06/2025 4:23 AM CDT 02/06/2025 4:25 AM CDT Odilia Damaris Johnston LAB BLOOD ORDERABLES Fin al Result Performing Organization Address [facility] de Phone Number QUINT[address] [address] * Ethanol (02/06/2025 4:23 AM CDT) [facility] Ethanol <10 <=10 mg/dL Comment: Interpretive Data Legal limit of intoxication > or = 80 mg/dL Levels > or = 400 mg/dL are potentially TOXIC. Current interpretive data was last revised on 2018. Blood 02/06/2025 4:23 AM CDT 02/06/2025 4:25 AM CDT Odilia Johnston CELLULAR PHONE REPAIRER LAB BLOOD ORDERABLES Fin al Result Performing Organization Address [facility] de Phone Number QU[address] [address] * Comprehensive metabolic panel (02/06/2025 4:23 AM CDT) [facility] Sodium 140 135 - 145 mmol/L Potassium, pl 4.2 3.3 - 4.9 mmol/L [facility] Chloride 106 97 - 110 mmol/L [facility] CO2 24 22 - 32 mmol/L [facility] Anion gap 10 2 - 15 mmol/L [facility] BUN 8 6 - 25 mg/dL [facility] Creatinine 0.94 0.80 - 1.30 mg/dL [facility] Glucose 118 70 - 199 mg/dL [facility] Comment: Interpretive Data Fasting glucose >/= 126 [...] 2022. Calcium 9.1 8.5 - 10.3 mg/dL [facility] Bilirubin, total 0.3 0.1 - 1.2 mg/dL [facility] Protein, pl 6.7 6.5 - 8.5 g/dL [facility] Albumin 4.3 3.5 - 5.0 g/dL [facility] Alk phos 75 40 - 130 Units/L [facility] ALT 13 7 - 55 Units/L [facility] AST 20 10 - 50 Units/L [facility] Blood 02/06/2025 4:23 AM CDT 02/06/2025 4:25 AM CDT Odilia Johnston CELLULAR PHONE REPAIRER LAB BLOOD ORDERABLES Fin al Result [facility] [address] [facility] Department of Laboratories [place], [place] [id number] * Troponin T high-sensitivity 2-hour (01/28/2025 4:34 PM CDT) Trop T hs <6 <=22 ng/L Comment: Interpretive Data For further hscTnT resources including the diagnostic algorithm and an aid in interpretation, copy and paste this link: https://nrl.testcatalog.org/show/hsTrop Current Interpretive Data last revised 2020. Testing performed by: [facility], [address] [place] [address]., [address] Trop T hs delta -1 ng/L [facility] Comment:Testing performed by : [facility], [address] [place] [address]., [address] Trop T hs interp Insignificant NEEL SMITH Comment:Testing performed by : [facility], [address] [place] [address]., [address] Blood 01/28/2025 4:34 PM CDT 01/28/2025 4:41 PM CDT us Perez Hayes DO LAB BLOOD ORDERABLES Final Res ult NEEL SMITH [address] [facility] Department [place] [address] * CT Abdomen Pelvis W [...] Francisco Jesus M.D. KT: MAN Report ID: [id number] Reading Location: [place] [address] Procedure Note Jose Francisco Jesus MD - [...] Francisco Jesus M.D. KT: KT Report ID: [id number] Reading Location: [place] [address] PROCEDURES Renee l Result * ECG 12 lead (01/28/2025 2:40 PM CDT) Ventricular Rate EKG/Min 83 BPM [facility] Atrial Rate 83 BPM [facility] [place]-Interval (MSEC) 114 ms [facility] QRS-Interval (MSEC) 96 ms [facility] QT-Interval (MSEC) 352 ms [facility] QTc 413 ms [facility] P Cody 68 degrees [facility] R Cody 51 degrees [facility] T Cody 28 degrees [facility] Diagnosis Normal sinus rhythm Normal ECG When compared with ECG of 22-JAN-2025 05:23, Nonspecific T wave abnormality now evident in Inferior leads Confirmed by NOE MARTÍNEZ M.D. ([id number]) on 01/30/2025 1:18:18 PM [facility] 01/28/2025 2:40 PM CDT 01/30/2025 1:18 PM CDT Perez Hayes DO ECG ORDERABLES Final Result Performing Organization Address [facility] Co de Phone Number [facility] * Troponin T high-sensitivity series (baseline, 2hr, 4hr, 6hr) (01/28/2025 2:38 PM CDT) Pathologist [facility] Trop T hs 7 <=22 ng/L Comment: Interpretive Data For further hscTnT resources including the diagnostic algorithm and an aid in interpretation, copy and paste this link: https://nrl.testcatalog.org/show/hsTrop Current Interpretive Data last revised 2020. Testing performed by: [facility], [address] [place] [address]., [address] Blood 01/28/2025 2:38 PM CDT 01/28/2025 2:42 PM CDT Perez Hayes DO LAB BLOOD ORDERABLES Final Res ult Performing Organization Address City/[facility]/ZIP Co de Phone Number NEEL [address] [facility] Department [place] [address] * eGFR (01/28/2025 2:38 PM CDT) eGFR [...] was last reviewed 2021. Testing performed by: [address] [address] Blood 01/28/2025 2:38 PM CDT 01/28/2025 2:42 PM CDT us Perez Hayes DO LAB BLOOD ORDERABLES Final Res ult [facility] [address] [facility] Department of Laboratories [place], [place] [id number] * (ABNORMAL) Differential, auto (01/28/2025 2:38 PM CDT) Neutrophil abs 11.33(H) 1.50 - 6.50 K/cumm Comment:Testing performed by : [address] [address] Imm gran abs 0.05 0.00 - 0.10 K/cumm NEEL Comment:Testing performed by : [address] [address] Lymphocyte abs 0.97 0.80 - 3.30 K/cumm NEEL Comment:Testing performed by : [address] [address] Monocyte abs 0.76 0.20 - 0.80 K/cumm NEEL Comment:Testing performed by : [address] [address] Eosinophil abs 0.03 0.00 - 0.50 K/cumm NEEL Comment:Testing performed by : [address] [address] Basophil abs 0.04 0.00 - 0.10 K/cumm NEEL Comment:Testing performed by : [address] [address] Neutrophil pct 85.9 % [facility] Comment: Interpretive Data Percent cell count reference ranges are not reported, since discordance with absolute values may lead to misinterpretation of CBC data. Current Interpretive Data was last revised on 2017. Testing performed by: [address] [address] Imm gran pct 0.4 % [facility] Comment: Interpretive Data Percent cell count reference ranges are not reported, since discordance with absolute values may lead to misinterpretation of CBC data. Current Interpretive Data was last revised on 2017. Testing performed by: [address] [address] Lymphocyte pct 7.4 % [facility] Comment: Interpretive Data Percent cell count reference ranges are not reported, since discordance with absolute values may lead to misinterpretation of CBC data. Current Interpretive Data was last revised on 2017. Testing performed by: [address] [address] Monocyte pct 5.8 % [facility] Comment: Interpretive Data Percent cell count reference ranges are not reported, since discordance with absolute values may lead to misinterpretation of CBC data. Current Interpretive Data was last revised on 2017. Testing performed by: [address] [address] Eosinophil pct 0.2 % [facility] Comment: Interpretive Data Percent cell count reference ranges are not reported, since discordance with absolute values may lead to misinterpretation of CBC data. Current Interpretive Data was last revised on 2017. Testing performed by: [address] [address] Basophil pct 0.3 % [facility] Comment: Interpretive Data Percent cell count reference ranges are not reported, since discordance with absolute values may lead to misinterpretation of CBC data. Current Interpretive Data was last revised on 2017. Testing performed by: [address] [address] Blood 01/28/2025 2:38 PM CDT 01/28/2025 2:42 PM CDT us Perez Hayes DO LAB BLOOD ORDERABLES Final Res ult NEEL [address] [facility] Department [place] [address] * (ABNORMAL) Urinalysis reflex to microscopic and culture Urine (01/28/2025 2:38 PM CDT) Color, ur Yellow Yellow Comment:Testing performed by : [address] [address] Clarity, ur Cloudy(A) Clear NEEL Comment:Testing performed by : [address] [address] Specific gravity, ur 1.012 1.003 - 1.030 NEEL Comment:Testing performed by : [address] [address] pH, urine 8.0 NEEL Comment: Interpretive Data U rine pH is affected by diet, medications, systemic acid-base disturbances, and renal tubular function. pH may affect urinary stone formation. For example, urine pH below 6.0 may help reduce the tendency for calcium phosphate stones and pH greater than 6.0 may reduce the tendency for uric acid stone formation. Source: [facility] [employer] Current Interpretive Data was last revised on 2017 Testing performed by: [address] [address] Protein, ur ql Negative Negative NEEL Comment:Testing performed by : [address] [address] Glucose, ur ql Negative Negative NEEL Comment:Testing performed by : [address] [address] Ketones, ur Negative Negative NEEL Comment:Testing performed by : [address] [address] Bilirubin, ur Negative Negative NEEL Comment:Testing performed by : [address] [address] Blood, ur Negative Negative NEEL SMITH Comment:Testing performed by : [address] [address] Urobilinogen, ur <2.0 <2.0 mg/dL NEEL SMITH Comment:Testing performed by : [address] [address] Nitrite, ur Negative Negative NEEL SMITH Comment:Testing performed by : [address] [address] Leukocyte esterase, ur Negative Negative NEEL Comment:Testing performed by : [address] [address] UA reflex comment Reflex conditions for microscopic UA and culture not met. NEEL SMITH Comment:Testing performed by : [address] [address] Urine 01/28/2025 2:38 PM CDT 01/28/2025 2:42 PM CDT us Perez Hayes DO LAB MICROBIOLOGY - GENERAL ORD ERABLES Final Result NEEL [facility] Department [place] [address] * (ABNORMAL) CBC with auto differential (01/28/2025 2:38 PM CDT) [facility] WBC 13.18(H) 3.80 - 9.90 K/cumm Comment:Testing performed by : [address] [address] Hgb 14.6 13.0 - 17.5 g/dL NEEL SMITH Comment:Testing performed by : [address] [address] Hct 43.5 38.9 - 50.3 % NEEL SMITH Comment:Testing performed by : [address] [address] Plt 258 150 - 400 K/cumm NEEL SMITH Comment:Testing performed by : [address] [address] MPV 10.0 9.1 - 12.3 fL NEEL SMITH Comment:Testing performed by : [address] [address] RBC 4.95 4.30 - 5.80 M/cumm NEEL SMITH Comment:Testing performed by : [address] [address] MCV 87.9 81.3 - 96.4 fL NEEL SMITH Comment:Testing performed by : [address] [address] MCH 29.5 27.1 - 33.3 pg NEEL SMITH Comment:Testing performed by : [address] [address] MCHC 33.6 32.3 - 35.7 g/dL NEEL SMITH Comment:Testing performed by : [address] [address] RDW CV 14.8 11.1 - 14.9 % NEEL Comment:Testing performed by : [address] [address] RDW SD 47.5 35.7 - 48.1 fL NEEL Comment:Testing performed by : [address] [address] NRBC abs 0.00 0.00 - 0.01 K/cumm NEEL Comment:Testing performed by : [address] [address] Blood Venous blood specimen / Unknown 01/28/2025 2:38 PM CDT 01/28/2025 2:42 PM CDT us Perez Hayes DO LAB BLOOD ORDERABLES Final Res ult NEEL [address] [facility] Department [place] [address] * Lipase (01/28/2025 2:38 PM CDT) Lipase 92 10 - 99 Units/L Comment:Testing performed by : [address] [address] Blood Venous blood specimen / Unknown 01/28/2025 2:38 PM CDT 01/28/2025 2:42 PM CDT us Perez Hayes DO LAB BLOOD ORDERABLES Final Res ult NEEL [address] [facility] Department [place] [address] * Comprehensive metabolic panel (01/28/2025 2:38 PM CDT) Sodium 142 135 - 145 mmol/L Comment:Testing performed by : [address] [address] Potassium, pl 4.0 3.3 - 4.9 mmol/L NEEL Comment:Testing performed by : [address] [address] Chloride 106 97 - 110 mmol/L NEEL Comment:Testing performed by : [address] [address] CO2 22 22 - 32 mmol/L NEEL Comment:Testing performed by : [address] [address] Anion gap 14 2 - 15 mmol/L NEEL Comment:Testing performed by : [address] [address] BUN 7 6 - 25 mg/dL NEEL Comment:Testing performed by : [address] [address] Creatinine 0.90 0.80 - 1.30 mg/dL NEEL Comment:Testing performed by : [address] [address] Glucose 136 70 - 199 mg/dL NEEL [...] was last revised 2022. Testing performed by: [address] [address] Calcium 9.6 8.5 - 10.3 mg/dL NEEL Comment:Testing performed by : [address] [address] Bilirubin, total 0.5 0.1 - 1.2 mg/dL NEEL Comment:Testing performed by : [address] [address] Protein, pl 6.9 6.5 - 8.5 g/dL NEEL Comment:Testing performed by : [address] [address] Albumin 4.6 3.5 - 5.0 g/dL NEEL Comment:Testing performed by : [address] [address] Alk phos 87 40 - 130 Units/L NEEL Comment:Testing performed by : [address] [address] ALT 13 7 - 55 Units/L NEEL Comment:Testing performed by : [address] [address] AST 15 10 - 50 Units/L NEEL Comment:Testing performed by : [address] [address] Blood 01/28/2025 2:38 PM CDT 01/28/2025 2:42 PM CDT us Perez Hayes DO LAB BLOOD ORDERABLES Final Res ult NEEL [address] [facility] Department [place] [address] * Troponin T high-sensitivity 4-hour [...] BLOOD ORDERABLES Final Result NEEL SMITH [address] [facility] Department [place] [address] * CT Abdomen Pelvis W Contrast (01/22/2025 [...] 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 Denies fever, dysuria and diarrhea, pt states [...] by Calvin Morejon M.D. 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 Denies fever, dysuria and diarrhea, pt states [...] by Calvin Morejon M.D. T: Report ID: [id number] Reading Location: [place] [address] Freddy Yao DO IMG CT PROCEDURES Final [...] BLOOD ORDERABLES Final Result Performing Organization Address City/[facility] Co de Phone Number NEEL [address] [place] [address] * Sepsis Lactate w/ Reflex (01/22/2025 7:02 AM CDT) Pathologist [facility] Sepsis Lactate 1.1 0.7 - 2.0 mmol/L Blood 01/22/2025 7:02 AM CDT 01/22/2025 7:04 AM CDT Freddy Yao DO LAB BLOOD ORDERABLES Final Result Performing Organization Address [facility] de Phone Number QUINTEN[address] [place] [address] * ECG 12 lead (01/22/2025 5:23 AM CDT) [facility] Ventricular Rate EKG/Min 79 BPM [facility] Atrial Rate 79 BPM [facility] [place]-Interval (MSEC) 116 ms [facility] QRS-Interval (MSEC) 104 ms [facility] QT-Interval (MSEC) 374 ms [facility] QTc 428 ms [facility] P Cody 65 degrees [facility] R Cody 62 degrees [facility] T Cody 66 degrees [facility] Diagnosis Normal sinus rhythm with sinus arrhythmia Incomplete right bundle branch block ST-changes When compared with ECG of 25-NOV-2024 23:02, Significant changes have occurred Confirmed by SULTAN DE JESUS M.D. ([id number]) on 01/22/2025 8:44:23 AM [facility] 01/22/2025 5:23 AM CDT 01/22/2025 8:44 AM CDT Freddy Yao DO ECG ORDERABLES Final Resul t Performing Organization Address [facility] Co de Phone Number [facility] * Troponin T high-sensitivity series (baseline, 2hr, [...] BLOOD ORDERABLES Final Result Performing Organization Address [facility] Co de Phone Number NEEL [address] [place] [employer] [address] * eGFR (01/22/2025 5:21 AM CDT) Pathologist [facility] eGFR 84 >=60 mL/min/1. 73 m2 [...] BLOOD ORDERABLES Final Result Performing Organization Address City/[facility]/ZIP Co de Phone Number NEEL [facility] [place] [address] * (ABNORMAL) Differential, auto (01/22/2025 5:21 AM CDT) Pathologist [facility] Neutrophil abs 15.14(H) 1.50 - 6.50 K/cumm Imm gran abs 0.11(H) 0.00 - 0.10 K/cumm [facility] Lymphocyte abs 2.97 0.80 - 3.30 K/cumm [facility] Monocyte abs 1.83(H) 0.20 - 0.80 K/cumm [facility] Eosinophil abs 0.17 0.00 - 0.50 K/cumm [facility] Basophil abs 0.10 0.00 - 0.10 K/cumm [facility] Neutrophil pct 74.6 % [facility] Comment: Interpretive Data Percent cell count reference ranges are not reported, since discordance with absolute values may lead to misinterpretation of CBC data. Current Interpretive Data was last revised on 2017. Imm gran pct 0.5 % [facility] Comment: Interpretive Data Percent cell count reference ranges are not reported, since discordance with absolute values may lead to misinterpretation of CBC data. Current Interpretive Data was last revised on 2017. Lymphocyte pct 14.6 % [facility] Comment: Interpretive Data Percent cell count reference ranges are not reported, since discordance with absolute values may lead to misinterpretation of CBC data. Current Interpretive Data was last revised on 2017. Monocyte pct 9.0 % [facility] Comment: Interpretive Data Percent cell count reference ranges are not reported, since discordance with absolute values may lead to misinterpretation of CBC data. Current Interpretive Data was last revised on 2017. Eosinophil pct 0.8 % [facility] Comment: Interpretive Data Percent cell count reference ranges are not reported, since discordance with absolute values may lead to misinterpretation of CBC data. Current Interpretive Data was last revised on 2017. Basophil pct 0.5 % [facility] Comment: Interpretive Data Percent cell count reference ranges are not reported, since discordance with absolute values may lead to misinterpretation of CBC data. Current Interpretive Data was last revised on 2017. Blood 01/22/2025 5:21 AM CDT 01/22/2025 5:25 AM CDT Freddy Yao DO LAB BLOOD ORDERABLES Final Result Performing Organization Address [facility] de Phone Number NEEL [facility] [place] [address] * (ABNORMAL) Urinalysis reflex to microscopic and culture Urine (01/22/2025 5:21 AM CDT) Color, ur Yellow Yellow Clarity, ur Cloudy(A) Clear [facility] Specific gravity, ur 1.021 1.003 - 1.030 [facility] pH, urine 6.5 [facility] Comment: Interpretive Data U rine pH is [...] Protein, ur ql Negative Negative [facility] Glucose, ur ql Negative Negative [facility] Ketones, ur Negative Negative [facility] Bilirubin, ur Negative Negative [facility] Blood, ur Negative Negative [facility] Urobilinogen, ur 2.0(A) <2.0 mg/dL [facility] Nitrite, ur Negative Negative [facility] Leukocyte esterase, ur Negative Negative [facility] UA reflex comment Reflex conditions for microscopic UA and culture not met. [facility] Urine 01/22/2025 5:21 AM CDT 01/22/2025 5:25 AM CDT Freddy Yao DO LAB MICROBIOLOGY - GENERAL ORDERABLES Final Result Performing Organization Address [facility] Co de Phone Number NEEL [address] [place] [address] * (ABNORMAL) CBC with auto differential (01/22/2025 5:21 AM CDT) WBC 20.32(H) 3.80 - 9.90 K/cumm Hgb 15.4 13.0 - 17.5 g/dL [facility] Hct 46.5 38.9 - 50.3 % [facility] Plt 300 150 - 400 K/cumm [facility] MPV 9.8 9.1 - 12.3 fL [facility] RBC 5.28 4.30 - 5.80 M/cumm [facility] MCV 88.1 81.3 - 96.4 fL [facility] MCH 29.2 27.1 - 33.3 pg [facility] MCHC 33.1 32.3 - 35.7 g/dL [facility] RDW CV 14.8 11.1 - 14.9 % [facility] RDW SD 47.6 35.7 - 48.1 fL [facility] NRBC abs 0.00 0.00 - 0.01 K/cumm [facility] Blood Venous blood specimen / Unknown 01/22/2025 5:21 AM CDT 01/22/2025 5:25 AM CDT Freddy Yao DO LAB BLOOD ORDERABLES Final Result [facility] [address] [facility] Department [place] [address] * (ABNORMAL) Drugs of Abuse Screen, Urine without Confirmation (01/22/2025 5:21 AM CDT) Pathologist [facility] Amphetamine, ur Not Detected [...] ur Not Detected CutOff 200ng/mL [facility] Comment: Interpretive Data - Barbiturates: Samples containing greater than 200 ng/mL secobarbital or other cross-reacting barbiturate compounds are reported as positive. False positive and false negative results are possible. Confirmatory testing required for definitive results. Current Interpretive Data was last reviewed 2022. Benzodiazepines, ur Not Detected CutOff 100ng/mL [facility] Comment: Interpretive Data - Benzodiazepines: Samples containing greater than 100 ng/mL nordiazepam or other cross-reacting compounds are reported as positive. False positive and false negative results are possible. Confirmatory testing required for definitive results. Current Interpretive Data was last reviewed 2022. Cannabinoids, ur Screen Positive, presumptive (A) CutOff 50 ng/mL [facility] Comment: Interpretive Data - Cannabinoids: Samples containing greater than 50 ng/mL delta-9 THC -COOH or other cross- reacting compounds are reported as positive. False positive and false negative results are possible. Confirmatory testing required for definitive results. Current Interpretive Data was last reviewed 2022. Cocaine, ur Not Detected CutOff 150ng/mL [facility] Comment: Interpretive Data - Cocaine: Samples containing greater than 150 ng/mL benzoylecgonine or other cross- reacting compounds are reported as positive. False positive and false negative results are possible. Confirmatory testing required for definitive results. Current Interpretive Data was last reviewed 2022. Fentanyl, Ur Not Detected CutOff 5 ng/mL [facility] Comment: Interpretive Data - Fentanyl: Samples containing greater than 5 ng/mL norfentanyl, fentanyl, or other cross-reacting fentanyl compounds are reported as positive. False positive and false negative results are possible. Confirmatory testing required for definitive results. Current Interpretive Data was last reviewed 2023. Methadone, ur Not Detected CutOff 300ng/mL [facility] Comment: Interpretive Data - Methadone: Samples containing greater than 300 ng/mL d,l-methadone or other cross-reacting compounds are reported as positive. False positive and false negative results are possible. Confirmatory testing required for definitive results. Current Interpretive Data was last reviewed 2022. Opiates, ur Not Detected CutOff 300ng/mL [facility] Comment: Interpretive Data - Opiates: Samples containing greater than 300 ng/mL morphine or other cross-reacting compounds are reported as positive. False positive and false negative results are possible. Confirmatory testing required for definitive results. Current Interpretive Data was last reviewed 2022. Oxycodone, ur Not Detected CutOff 100ng/mL [facility] Comment: Interpretive Data - Oxycodone: Samples containing greater than 100 ng/mL oxycodone or other cross-reacting compounds are reported as positive. False positive and false negative results are possible. Confirmatory testing required for definitive results. Current Interpretive Data was last reviewed 2022. Phencyclidine, ur Not Detected CutOff 25 ng/mL [facility] Comment: Interpretive Data - Phencyclidine: Samples containing [...] AM CDT 01/22/2025 5:25 AM CDT Narrative [facility] - 01/22/2025 5:54 AM CDT Drug of Abuse screening is performed by immunoassay for medical purposes only. This is not to be used for Pain Management purposes. Freddy Yao [facility] URINE ORDERABLES Final Result Performing Organization Address [facility] Co de Phone Number [address] [employer] [place], [place] [id number] * Lipase (01/22/2025 5:21 AM CDT) Pathologist [facility] Lipase 60 10 - 99 Units/L Blood Venous blood specimen / Unknown 01/22/2025 5:21 AM CDT 01/22/2025 5:25 AM CDT Freddy [facility] BLOOD ORDERABLES Final Result Performing Organization Address [facility] de Phone Number [address] [place] [address] * Comprehensive metabolic panel (01/22/2025 5:21 AM CDT) Sodium 143 135 - 145 mmol/L Potassium, pl 3.7 3.3 - 4.9 mmol/L [facility] Chloride 103 97 - 110 mmol/L [facility] CO2 26 22 - 32 mmol/L [facility] Anion gap 14 2 - 15 mmol/L [facility] BUN 8 6 - 25 mg/dL [facility] Creatinine 1.11 0.80 - 1.30 mg/dL [facility] Glucose 140 70 - 199 mg/dL [facility] Comment: Interpretive Data Fasting glucose >/= 126 [...] 2022. Calcium 9.9 8.5 - 10.3 mg/dL [facility] Bilirubin, total 0.5 0.1 - 1.2 mg/dL [facility] Protein, pl 7.2 6.5 - 8.5 g/dL [facility] Albumin 4.6 3.5 - 5.0 g/dL [facility] Alk phos 90 40 - 130 Units/L [facility] ALT 16 7 - 55 Units/L [facility] AST 21 10 - 50 Units/L [facility] Blood 01/22/2025 5:21 AM CDT 01/22/2025 5:25 AM CDT Freddy Yao DO LAB BLOOD ORDERABLES Final Result Performing Organization Address City/State/[facility] Co de Phone Number [facility] [address] [facility] Department [place] [address] from Last 3 Months Insurance [facility] Advance Directives For more information, please contact: [phone] * Full Code (Latest Code Status on [...] 12:50 PM 11/16/2023 7:54 PM Care Teams Critical Systems Technician Relationship Specialty Start Date End Date Td Lopez MD [address] [place] [id number] PCP - General Family Medicine 11/09/20 Angie Woodard MD [address] [facility] [address] [place] [address] Consulting Physician Gastroenterology 07/17/21 Vimal Woodruff MD [address] [facility] [address] [place] [address] Consulting Physician Gastroenterology 02/10/22
--- OUTSIDE RECORDS SUMMARY | 2025-03-16 19:28 | XMS_ITS | Clinical Summary ---
Author Organization [facility] Address [facility] [place] [address] Care Team Providers Care Ring Cutter Lathe Operator Name Role Phone Td Lopez MD Primary Care Provider [phone] Allergies Active Allergy Reactions Criticality Noted Date Comments Capsaicin Other (see comment) Low 05/20/2019 Pt states it gets into his scars and causes a lot of pain Doxycycline GI Upset Low 03/29/2017 Haloperidol Other (see comment) 01/29/2022 Musculoskeletal pain Metoclopramide Myalgias 03/29/2017 Sulfa Antibiotics Myalgias,Other (see comment) Medium 03/29/2017 Reaction: neurological symptoms per patient Medications CREON [id number] units CAPSULE ENTERIC COATED PARTICLES Take 36,000 [...] Overview: Added automatically from request for surgery [id number] Chronic abdominal pain 03/30/2017 Assessment & Plan (03/30/2017 12:03 PM TIRE CENTER SUPERVISOR): Acute on chronic, stable Patient with [...] 03/30/2017 Assessment & Plan (03/30/2017 12:03 PM TIRE CENTER SUPERVISOR): Present on admission, resolved Lactic acid [...] 03/30/2017 Assessment & Plan (03/30/2017 12:25 AM TIRE CENTER SUPERVISOR): - established, controlled - continue home fluoxetine, nortriptyline GERD (gastroesophageal reflux disease) 7 Assessment & Plan (03/30/2017 12:25 AM TIRE CENTER SUPERVISOR): - established, controlled - continue home nexium Hypertension 03/30/2017 Overview (03/30/2017): - established, controlled - continue home metoprolol Assessment & Plan (03/30/2017 1:01 AM TIRE CENTER SUPERVISOR): - established, controlled - continue home metoprolol Influenza 03/30/2017 Depression 03/30/2017 Overview (02/18/2019): Overview: Last Assessment & Plan: - established, controlled - continue home fluoxetine, nortriptyline Flu 03/29/2017 Assessment & Plan (03/30/2017 12:03 PM TIRE CENTER SUPERVISOR): Acute, influenza A + on admission, [...] CDT - 02/01/2025 2:12 AM CDT Emergency [facility] Emergency Room [address] [place] [address] Temo Soriano MD Abdominal Pain Discharge Disposition: [...] week 09/28/2022 How often do you attend mosque or jain serv ices? Never 09/28/2022 Do you belong [...] and heating? Not hard at all 10/18/2022 [facility] - Occupational [...] in a long term (including now)? No 10/18/2022 Sex and Gender Information Value Date Recorded Sex Assigned at Male 06/21/2024 7:21 PM TIRE CENTER SUPERVISOR Legal Sex Male 8:10 AM CDT [...] discharge from hospital Lifestyle No Sintia Zhao, measurement advisor Procedure Name Priority Date/Time Associated Diagnosis Comments [...] DETECTED NONE DETECTED 01/31/2025 11:28 PM CDT [facility] BARBITURATES SCREEN (U) NONE DETECTED NONE DETECTED 01/31/2025 11:28 PM CDT [facility] BENZODIAZEPINES SCREEN (U) NONE DETECTED NONE DETECTED 01/31/2025 11:28 PM CDT [facility] BUPRENORPHINE SCREEN (U) NONE DETECTED NONE DETECTED 01/31/2025 11:28 PM CDT [facility] COCAINE METABOLITES (U) NONE DETECTED NONE DETECTED 01/31/2025 11:28 PM CDT [facility] METHAMPHETAMINE (U) NONE DETECTED NONE DETECTED 01/31/2025 11:28 PM CDT [facility] METHADONE (U) NONE DETECTED NONE DETECTED 01/31/2025 11:28 PM CDT [facility] OPIATE SCREEN (U) NONE DETECTED NONE DETECTED 01/31/2025 11:28 PM CDT [facility] OXYCODONE SCREEN (U) NONE DETECTED NONE DETECTED 01/31/2025 11:28 PM CDT [facility] PHENCYCLIDINE PCP (U) NONE DETECTED NONE DETECTED 01/31/2025 11:28 PM CDT [facility] CANNABINOIDS SCREEN (U) NONE DETECTED NONE DETECTED 01/31/2025 11:28 PM CDT [facility] TRICYCLIC ANTIDEPRESSANT SCREEN (U) NONE DETECTED NONE DETECTED 01/31/2025 11:28 PM CDT [facility] Comment: NOTE: RESULTS OF THIS DRUG [...] Soriano MD URINE ORDERABLES Final Res ult [facility] [address] [place] [address], [place] [phone] * URINALYSIS, AUTO, COMPLETE (01/31/2025 11:10 PM CDT) COLOR (U) YELLOW 01/31/2025 11:30 PM CDT [facility] TRANSPARENCY HAZY 01/31/2025 11:30 PM CDT [facility] SPECIFIC GRAVITY (U) 1.015 1.000 - 1.030 01/31/2025 11:30 PM CDT [facility] U PH 8.0 5.0 - 9.0 01/31/2025 11:30 PM CDT [facility] LEUKOCYTES (U) NEGATIVE NEGATIVE 01/31/2025 11:30 PM CDT [facility] NITRITES NEGATIVE NEGATIVE 01/31/2025 11:30 PM CDT [facility] PROTEIN RANDOM (U) NEGATIVE NEGATIVE 01/31/2025 11:30 PM CDT [facility] GLUCOSE (U) NEGATIVE NEGATIVE 01/31/2025 11:30 PM CDT [facility] KETONES MG/DL (U) NEGATIVE NEGATIVE 01/31/2025 11:30 PM CDT [facility] BILIRUBIN (U) NEGATIVE NEGATIVE 01/31/2025 11:30 PM CDT [facility] BLOOD (U) NEGATIVE NEGATIVE 01/31/2025 11:30 PM CDT [facility] WBC/HPF NONE SEEN 0 - 5 /HPF 01/31/2025 11:30 PM CDT [facility] RBC/HPF NONE SEEN 0 - 5 /HPF 01/31/2025 11:30 PM CDT [facility] EPI/HPF NONE SEEN /HPF 01/31/2025 11:30 PM CDT [facility] CRYSTALS (U) FEW /HPF 01/31/2025 11:30 PM CDT [facility] Comment:AMORPHOUS MATERIAL URINE SPECIMEN OBTAINED BY CLEAN CATCH PROCEDURE / Unknown 01/31/2025 11:10 PM CDT us Temo Soriano MD URINE ORDERABLES Final Res ult [facility] [address] [place] [address], [place] [phone] * (ABNORMAL) COMPREHENSIVE METABOLIC PANEL (01/31/2025 10:49 PM CDT) GLUCOSE 120(H) 70 - 99 MG/DL 01/31/2025 11:14 PM [facility] BUN 6(L) 7 - 18 MG/DL 01/31/2025 11:14 PM [facility] CREATININE S/P/B 1.10 0.7 - 1.3 MG/DL 01/31/2025 11:14 PM [facility] SODIUM S/P/B 141 136 - 145 MMOL/L 01/31/2025 11:14 PM [facility] POTASSIUM S/P/B 3.7 3.5 - 5.1 MMOL/L 01/31/2025 11:14 PM [facility] CHLORIDE S/P/B 102 100 - 108 MMOL/L 01/31/2025 11:14 PM [facility] CO2 28.1 21 - 32 MMOL/L 01/31/2025 11:14 PM [facility] CALCIUM S/P/B 9.6 8.5 - 10.1 MG/DL 01/31/2025 11:14 PM [facility] BILIRUBIN TOTAL S/P/B 0.7 0.2 - 1.2 MG/DL 01/31/2025 11:14 PM [facility] TOTAL PROTEIN S/P/B 7.7 6.4 - 8.2 G/DL 01/31/2025 11:14 PM [facility] ALBUMIN S/P/B 4.4 3.4 - 5.0 G/DL 01/31/2025 11:14 PM [facility] AST 15 15 - 37 U/L 01/31/2025 11:14 PM [facility] ALT 19 16 - 60 U/L 01/31/2025 11:14 PM [facility] ALKALINE PHOSPHATASE S/P/B 85 50 - 136 U/L 01/31/2025 11:14 PM CDT [facility] ANION GAP 10.9 5 - 15 MMOL/L 01/31/2025 11:14 PM CDT [facility] BUN CREATININE RATIO 5.5(L) 6 - 26 01/31/2025 11:14 PM CDT [facility] A/G RATIO 1.3 1.0 - 2.0 RATIO 01/31/2025 11:14 PM CDT [facility] GFR ESTIMATE 85(L) >90 ML/MIN/1.7 3 M2 01/31/2025 11:14 PM CDT [facility] Comment: NOTE: eGFR is not calculated for patients <18 years of age. This is an estimated GFR calculation using the new CKD EPI creatinine equation without race and so does not require a correction factor for race. This estimated GFR should not be used for calculating drug doses. 01/31/2025 10:4 9 PM CDT us Temo Soriano MD LABORATORY Final Resu lt [facility] [address] [place] [address], [place] [phone] * (ABNORMAL) CBC W/DIFF AUTOMATED (01/31/2025 10:49 PM CDT) WBC 19.87(H) 4.4 - 11.0 x10'3/uL 01/31/2025 10:59 PM CDT [facility] RBC 5.09 4.50 - 5.90 x10'6/uL 01/31/2025 10:59 PM CDT [facility] HGB 15.4 14.0 - 17.5 G/DL 01/31/2025 10:59 PM CDT [facility] HCT 44.3 41.5 - 50.4 % 01/31/2025 10:59 PM CDT [facility] MCV 87.0 80.0 - 96.0 FL 01/31/2025 10:59 PM CDT [facility] MCH 30.3 26.5 - 31.4 PG 01/31/2025 10:59 PM CDT [facility] MCHC 34.8 31.9 - 34.8 G/DL 01/31/2025 10:59 PM CDT [facility] RDW 15.0(H) 12.3 - 14.3 % 01/31/2025 10:59 PM CDT [facility] PLT 296 151 - 353 x10'3/uL 01/31/2025 10:59 PM CDT [facility] MPV 10.0 9.7 - 11.9 FL 01/31/2025 10:59 PM CDT [facility] RBC MORPHOLOGY NORMAL 01/31/2025 10:59 PM CDT [facility] PLT MORPH. NORMAL 01/31/2025 10:59 PM CDT [facility] WBC MORPHOLOGY NORMAL 01/31/2025 10:59 PM CDT [facility] LYMPHOCYTES % 8.9(L) 15.8 - 45.0 % 01/31/2025 10:59 PM CDT [facility] NEUTROPHILS % 82.5(H) 42.1 - 71.9 % 01/31/2025 10:59 PM CDT [facility] MONOCYTES % 7.4 5.7 - 12.5 % 01/31/2025 10:59 PM CDT [facility] EOSINOPHILS 0.4 0.0 - 5.6 % 01/31/2025 10:59 PM CDT [facility] BASOPHILS 0.4 0.0 - 1.3 % 01/31/2025 10:59 PM CDT [facility] ABS. NEUTROPHILS 16.39(H) 1.40 - 6.00 x10'3/uL 01/31/2025 10:59 PM CDT [facility] IMMATURE GRANS % 0.4 0.0 - 0.5 % 01/31/2025 10:59 PM CDT [facility] ABS. LYMPHOCYTES 1.77 0.80 - 4.70 x10'3/uL 01/31/2025 10:59 PM CDT [facility] 01/31/2025 10:4 9 PM CDT us Temo Soriano MD LABORATORY Final Resu lt Performing Organization Address City/[facility]/ZIP Co de Phone Number [facility] [address] [place] [address], [place] [phone] * LIPASE (01/31/2025 10:49 PM CDT) LIPASE 30 16 - 77 UNITS/L 01/31/2025 11:14 PM CDT [facility] 01/31/2025 10:4 9 PM CDT us Temo Soriano MD LABORATORY Final Resu lt Performing Organization Address City/[facility]/ZIP Co de Phone Number [facility] [address] [place] [address], [place] [phone] from Last 3 Months Insurance MEDICAID Advance [...] 6:07 PM 10/19/2019 4:11 PM Care Teams Ring Cutter Lathe Operator Relationship Specialty Start Date End Date Td Lopez MD PCP - General FAMILY PRACTICE 08/18/19
== END 2025-03-16 17:48 | disposition home or self-care (01) ==
PROVIDERS: Student in an Organized Health Care Education/Training Program; Emergency Provider Student in an Organized Health Care Education/Training Program; PCP Family Medicine
DX: R11.15 Cyclical vomiting syndrome unrelated to migraine (principal); I10 Essential (primary) hypertension; K86.1 Other chronic pancreatitis; K21.9 Gastro-esophageal reflux disease without esophagitis; K58.9 Irritable bowel syndrome, unspecified; F41.9 Anxiety disorder, unspecified; F32.A Depression, unspecified; F17.210 Nicotine dependence, cigarettes, uncomplicated; Z87.442 Personal history of urinary calculi; Z90.49 Acquired absence of other specified parts of digestive tract; Z79.01 Long term (current) use of anticoagulants; Z79.899 Other long term (current) drug therapy
CPT/HCPCS: 36415; 80053; 80307; 81001; 83690; 85025; 96374; 96375; 99284; A9270; J1171; J1790; J1885; J7030; J7050